=== PATIENT | male | born 1950 | race Hispanic/Latino ===

== ENCOUNTER 2017-09-21 12:25 | Inpatient (IN) | payer SELFPAY ==
[2017-09-21 15:20] LABS: Absolute Lymphocytes (CBC) 1.3 K/uL (0.7-4.9); Absolute Monocytes 1.7 K/uL (0.1-1.3); Absolute Neutrophil 15.9 K/uL (1.8-8.0); Basophils % 0.2 % (0-1.3); Eosinophils % 0.1 % (0-4.4); Hematocrit 36.3 % (39.6-49.0); Lymphocytes % 6.9 % (15.3-44.8); MCH 30.3 pg (27.0-35.0); MCV 89.7 fL (80-100); MPV 9.6 fL (7.6-11.3); Monocytes % 8.8 % (3.3-12.3); RBC Red Blood Cell Count 4.05 M/uL (4.33-5.43)
--- NOTE | 2017-09-21 15:20 | RAD REPORT ---
EXAM DESCRIPTION: RAD - Foot Left 3 View - 09/21/2017 3:03 pm CLINICAL HISTORY: Diabetic foot wound. COMPARISON: 04/25/2017 FINDINGS: Heavy vascular calcifications noted. Moderate calcaneal spur noted. Evidence of previous a mputation at the level of the first metatarsal mid aspect. Prevent large amount of soft tissue gas is seen along the lateral margin of the foot with a focal ulceration noted adjacent to the level of the fifth metatarsal head. Destruction of the distal fifth metatarsal and the base of the proximal phala nx of the fifth toe is noted compatible with osteomyelitis. IMPRESSION: Lateral osteomyelitis as detailed. Significant amount of lateral soft tissue gas is present compatible with gas-forming infection.
[2017-09-21] MEDS ORDERED: HYDROCODONE/APAP 7.5/325 MG TAB ONE (15:43)
[2017-09-21 16:00] LABS: Bicarbonate 28 mEq/L (21-31); Glucose Level 337 mg/dL (65-120); Potassium 4.2 mEq/L (3.6-5.0); Sodium Level 124 mEq/L (135-145)
--- NOTE | 2017-09-21 16:00 | EDPHYS ---
Physician Documentation [facility] Name: Amaury Matamoros Age: 66 yrs Sex: Male : 1950 Arrival Date: 09/21/2017 Time: 12:28 Bed 17 Private MD: ED Physician Jose Powell HPI: 09/21 14:20 This 66 yrs old Male presents to ER via Ambulatory with complaints of Infected kb Toe. 14:20 The patient presents with diabetic ulcer. The complaints affect the left foot. Context: kb resulted from started as a blister and turned into a diabetic wound. Onset: The symptoms/episode began/occurred last month. Modifying factors: The symptoms are alleviated by nothing, the symptoms are aggravated by nothing. Associated signs and symptoms: The patient has no apparent associated signs or symptoms. Severity of symptoms: At their worst the symptoms were mild, moderate, in the emergency department the symptoms are unchanged. The patient has experienced similar episodes in the past. The patient has been recently seen by a physician:. Pt states he has a diabetic ulcer that he sees wound care for. States it has been getting worse for the past few days. States he is also out of pain medication. . Historical: - Allergies: 12:43 PENICILLINS; aj - Home Meds: 12:43 unknown abx [Active]; Metformin Oral [Active]; aj - PMHx: 12:43 Cellulitis; Diabetes - NIDDM; aj - Immunization history:: Adult Immunizations up to date. - Social history:: Smoking status: Patient/guardian denies using tobacco. ROS: 14:20 Constitutional: Negative for fever, chills, and weight loss, Cardiovascular: Negative kb for chest pain, palpitations, and edema, Respiratory: Negative for shortness of breath, cough, wheezing, and pleuritic chest pain, Abdomen/GI: Negative for abdominal pain, nausea, vomiting, diarrhea, and constipation, Back: Negative for injury and pain, : Negative for injury, bleeding, discharge, and swelling, Neuro: Negative for headache, weakness, numbness, tingling, and seizure. 14:20 Skin: Positive for ulceration, of the lateral side of left foot. kb Exam: 14:20 Constitutional: This is a well developed, well nourished patient who is awake, alert, kb and in no acute distress. Head/Face: Normocephalic, atraumatic. Chest/axilla: Normal chest wall appearance and motion. Nontender with no deformity. No lesions are appreciated. Cardiovascular: Regular rate and rhythm with a normal S1 and S2. No gallops, murmurs, or rubs. Normal PMI, no JVD. No pulse deficits. Respiratory: Lungs have equal breath sounds bilaterally, clear to auscultation and percussion. No rales, rhonchi or wheezes noted. No increased work of breathing, no retractions or nasal flaring. Abdomen/GI: Soft, non-tender, with normal bowel sounds. No distension or tympany. No guarding or rebound. No evidence of tenderness throughout. Neuro: Awake and alert, GCS 15, oriented to person, place, time, and situation. Cranial nerves II-XII grossly intact. Motor strength 5/5 in all extremities. Sensory grossly intact. Cerebellar exam normal. Normal gait. 14:20 Skin: lesion(s), noted, and can be described as ulcerated, located on the lateral side kb of left foot, malodorous. Vital Signs: 12:43 BP 109 / 73; Pulse 104; Resp 17; Temp 98.7; Pulse Ox 96% on R/A; Weight 61.23 kg; aj Height 5 ft. 3 in. (160.02 cm); Pain 10/10; 14:20 BP 114 / 78; Pulse 94; Resp 18; Pulse Ox 99% on R/A; Pain 10/10; em 15:00 BP 128 / 78; Pulse 94; Resp 18; Pulse Ox 99% on R/A; Pain 10/10; em 16:18 BP 115 / 83; Pulse 89; Resp 16; Pulse Ox 100% on R/A; em 17:00 BP 122 / 74; Pulse 90; Resp 18; Temp 99.7(O); Pulse Ox 100% on R/A; em 12:43 Body Mass Index 23.91 (61.23 kg, 160.02 cm) aj MDM: 14:14 Patient medically screened. kb 14:20 Data reviewed: vital signs, nurses notes. Data interpreted: Pulse oximetry: on room air kb is 96 %. Interpretation: normal. 14:59 ED course: Last progress note from Dr Amor reviewed and discussed with Dr Powell. kb 15:58 Counseling: I had a detailed discussion with the patient and/or guardian regarding: the kb historical points, exam findings, and any diagnostic results supporting the discharge/admit diagnosis, lab results, radiology results, the need for further work-up and treatment in the hospital. Physician consultation: Alonzo Childress MD was contacted at 15:58, regarding admission, to the medical/surgical unit. patient's condition. 09/21 12:50 Order name: Glucose, Ancillary Testing; Complete Time: 14:12 EDMS 09/21 14:28 Order name: Wound Culture kb 09/21 14:28 Order name: Foot Left 3 View XRAY; Complete Time: 15:26 kb 09/21 14:28 Order name: CBC with Diff; Complete Time: 15:26 kb 09/21 14:28 Order name: Basic Metabolic Panel; Complete Time: 16:02 kb 09/21 14:28 Order name: Blood Culture Adult (2) 09/21 14:28 Order name: IV Start; Complete Time: 14:57 kb 09/21 15:28 Order name: Labs - recollect needed; Complete Time: 15:59 bd 09/21 16:31 Order name: CONS Pharmacy Consult EDMS Administered Medications: 15:30 Drug: [place] (7.5 mg-325 mg) 1 tabs Route: PO; em 16:05 Follow up: Response: No adverse reaction em 16:16 Drug: LevaQUIN 500 mg Volume: 100 ml; Route: IVPB; Infused Over: 60 mins; Site: right em antecubital; 17:15 Follow up: Response: No adverse reaction; IV Status: Completed infusion; IV Intake: em 100ml 16:16 Drug: vancoMYCIN 1 grams Route: IVPB; Infused Over: 2 hrs; Site: right antecubital; em 17:30 Follow up: Response: No adverse reaction; IV Status: Infusion continued upon admission em Point of Care Testing: Blood Glucose: 12:47 Blood Glucose: 298 mg/dL; aj Ranges: Critical Glucose Levels:Adult <50 mg/dl or >400 mg/dl <40 mg/dl or >180 mg/dl Disposition: 17:54 Co-signature as Attending Physician, Jose Powell MD. rn Disposition: 09/21/17 15:59 Hospitalization ordered by Alonzo Childress for Inpatient Admission. Preliminary diagnosis are Osteomyelitis, unspecified, Open wound of foot - diabetic ulcer left lateral foot, hyponatremia. - Bed requested for Telemetry/MedSurg (Inpatient). - Status is Inpatient Admission. em - Condition is Stable. - Problem is new. - Symptoms are unchanged. UTI on Admission? No Signatures: Dispatcher [employer] EDLorraine Alston, NEGATIVE CLEANER-C NEGATIVE CLEANER-Ckb Estela Alcantar Amanda, RN RN Melissa Abarca, NEGATIVE CLEANER-C NEGATIVE CLEANER-Csnw Milton Hall, OB/GYN NURSE OB/GYN NURSE Jose Benavides MD MD rn Fitzgerald, Diane, RN RN df Corrections: (The following items were deleted from the chart) 14:26 14:20 Skin: lesion(s), noted, and can be described as ulcerated, located on the lateral kb side of left foot, kb
--- NOTE | 2017-09-21 16:00 | ER ---
Nurse's Notes [facility] Name: Amaury Matamoros Age: 66 yrs Sex: Male : 1950 Arrival Date: 09/21/2017 Time: 12:28 Bed 17 Private MD: Diagnosis: Osteomyelitis, unspecified;Open wound of foot-diabetic ulcer left lateral foot;hyponatremia Presentation: 09/21 12:40 Presenting complaint: Patient states: Wound to left foot. Currently being seen by wound aj healing for same wound. Patient ran out of his hydrocodone this AM and is unable to get RX refilled until 10/04. Patient states, "I have had a lot of pain so I have been taking more pain pills". Transition of care: patient was not received from another setting of care. Onset of symptoms was May 2017. Care prior to arrival: None. 12:40 Method Of Arrival: Ambulatory aj 12:40 Acuity: ALEJANDRA 4 aj Triage Assessment: 12:43 General: Appears in no apparent distress. comfortable, Behavior is calm, cooperative, aj appropriate for age. Pain: Complains of pain in left foot Pain currently is 10 out of 10 on a pain scale. Neuro: Level of Consciousness is awake, alert, obeys commands, Oriented to person, place, time, situation. Respiratory: Airway is patent Respiratory effort is even, unlabored, Respiratory pattern is regular, symmetrical. Derm: Skin is intact, is healthy with good turgor, Skin is pink, warm \\T\\ dry. normal, Wound noted left foot. Historical: - Allergies: 12:43 PENICILLINS; aj - Home Meds: 12:43 unknown abx [Active]; Metformin Oral [Active]; aj - PMHx: 12:43 Cellulitis; Diabetes - NIDDM; aj - Immunization history:: Adult Immunizations up to date. - Social history:: Smoking status: Patient/guardian denies using tobacco. Screenin:57 Abuse screen: Denies threats or abuse. Denies injuries from another. Nutritional hb screening: No deficits noted. Tuberculosis screening: No symptoms or risk factors identified. Fall Risk None identified. Assessment: 14:30 General: Appears in no apparent distress. uncomfortable, Behavior is calm, cooperative. em Pain: Complains of pain in lateral side of left foot Pain currently is 10 out of 10 on a pain scale. Pain began 2 weeks ago. Neuro: Level of Consciousness is awake, alert, obeys commands, Oriented to person, place, time, situation. Cardiovascular: Patient's skin is warm and dry. Respiratory: Airway is patent Respiratory effort is even, unlabored, Respiratory pattern is regular, symmetrical. GI: Abdomen is flat. : No signs and/or symptoms were reported regarding the genitourinary system. EENT: No signs and/or symptoms were reported regarding the EENT system. Derm: Wound noted lateral side of left foot Wound is unstageable. Musculoskeletal: Range of motion: intact in all extremities. 14:31 Reassessment: I agree with previous assessment. hb 15:33 Reassessment: Patient appears in no apparent distress at this time. Patient and/or em family updated on plan of care and expected duration. Pain level reassessed. Patient is alert, oriented x 3, equal unlabored respirations, skin warm/dry/pink. 16:06 Reassessment: Dr. Childress at bedside discussing POC. em 16:23 Reassessment: Patient appears in no apparent distress at this time. Patient and/or em family updated on plan of care and expected duration. Pain level reassessed. Patient is alert, oriented x 3, equal unlabored respirations, skin warm/dry/pink. Patient states feeling better. 17:20 Reassessment: Patient appears in no apparent distress at this time. Patient and/or em family updated on plan of care and expected duration. Pain level reassessed. Patient is alert, oriented x 3, equal unlabored respirations, skin warm/dry/pink. Patient states feeling better. Vital Signs: 12:43 BP 109 / 73; Pulse 104; Resp 17; Temp 98.7; Pulse Ox 96% on R/A; Weight 61.23 kg; aj Height 5 ft. 3 in. (160.02 cm); Pain 10/10; 14:20 BP 114 / 78; Pulse 94; Resp 18; Pulse Ox 99% on R/A; Pain 10/10; em 15:00 BP 128 / 78; Pulse 94; Resp 18; Pulse Ox 99% on R/A; Pain 10/10; em 16:18 BP 115 / 83; Pulse 89; Resp 16; Pulse Ox 100% on R/A; em 17:00 BP 122 / 74; Pulse 90; Resp 18; Temp 99.7(O); Pulse Ox 100% on R/A; em 12:43 Body Mass Index 23.91 (61.23 kg, 160.02 cm) aj ED Course: 12:28 Patient arrived in ED. mr 12:42 Triage completed. aj 12:45 Arm band placed on left wrist. Patient placed in waiting room, Patient notified of wait aj time. 14:12 Lorraine Wilson FNP-C is PHCP. kb 14:12 Jose Powell MD is Attending Physician. kb 14:12 Melissa Mcgill FNP-C is PHCP. snw 14:42 Milton Hall LVN is Primary Nurse. em 14:57 Patient has correct armband on for positive identification. Bed in low position. Call hb light in reach. Side rails up X 1. 14:59 Foot Left 3 View XRAY In Process Unspecified. EDMS 15:00 X-ray completed. Portable x-ray completed in exam room. Patient tolerated procedure kc2 well. 15:00 No provider procedures requiring assistance completed. Initial lab(s) drawn, by me, em sent to lab. Inserted saline lock: 20 gauge in right antecubital area, using aseptic technique. Blood collected. 15:58 Alonzo Childress MD is Hospitalizing Provider. kb 17:30 Dressings: wet to dry on left foot, wrapped with kerlix. em 17:38 Patient admitted, IV remains in place. em Administered Medications: 15:30 Drug: [place] (7.5 mg-325 mg) 1 tabs Route: PO; em 16:05 Follow up: Response: No adverse reaction em 16:16 Drug: LevaQUIN 500 mg Volume: 100 ml; Route: IVPB; Infused Over: 60 mins; Site: right em antecubital; 17:15 Follow up: Response: No adverse reaction; IV Status: Completed infusion; IV Intake: em 100ml 16:16 Drug: vancoMYCIN 1 grams Route: IVPB; Infused Over: 2 hrs; Site: right antecubital; em 17:30 Follow up: Response: No adverse reaction; IV Status: Infusion continued upon admission em Point of Care Testing: Blood Glucose: 12:47 Blood Glucose: 298 mg/dL; aj Ranges: Intake: 17:15 IV: 100ml; Total: 100ml. em Outcome: 15:59 Decision to Hospitalize by Provider. kb 17:37 Admitted to Med/surg accompanied by tech, via wheelchair, room 423, Report called to em Yancy Lundberg RN 17:37 Condition: good 17:37 Instructed on the need for admit, Demonstrated understanding of instructions. 17:39 Patient left the ED. em Signatures: Dispatcher [employer] EDLorraine Alston, NEHAC ANETTE-Chanda Aragon RN RN Melissa Abarca, NEHAC BUSINESS SYSTEMS MANAGER-Monae Nogueira mr Milton Hall, DIELECTRIC MACHINE OPERATOR DIELECTRIC MACHINE OPERATOR em Micaela Zuñiga RN RN hb Carr, Kelsie kc2 Corrections: (The following items were deleted from the chart) 12:46 12:40 Presenting complaint: Patient states: Wound to left foot. Currently being seen by aj wound healing for same wound. aj 1246 12:40 Acuity: ALEJANDRA 3 aj aj 16:25 13:45 BP 114 / 78; Pulse 94bpm; Resp 18bpm; Pulse Ox 99% RA; Pain 04/24; em em
[2017-09-21 16:01] LABS: BUN Blood Urea Nitrogen 19 mg/dL (6-20); Glomerular Filtration Rate > 90 mL/min (=/>90)
[2017-09-21] MEDS ORDERED: Levofloxacin500mg IV 500 MG/100 ML BAG IV ONE (16:22)
[2017-09-21] MEDS ORDERED: VANCOMYCIN/NS 1 gm 1 GM/250 ML BAG ONE (16:22)
[2017-09-21] MEDS ORDERED: Pharmacy Consult 1 EA XX PRN (16:29)
[2017-09-21] MEDS ORDERED: D50W 25 GM/50 ML SYRINGE IV PRN (16:31)
[2017-09-21] MEDS ORDERED: GLUCAGON 1 MG/VIAL IM PRN (16:31)
--- NOTE | 2017-09-21 16:35 | P.HP ---
Certification for Inpatient With expected LOS: >2 Midnights Practitioner: I am a practitioner with admitting privileges, knowledge of patient current condition, hospital course, and medical plan of care. Services: Services provided to patient in accordance with Admission requirements found in Title 42 Section 412.3 of the Code of Federal Regulations Patient History Date of Service: 09/21/17 Reason for admission: Osteomyelitis History of Present Illness: Patient is 66 years of age he has been having problems with his left forearm for about a month became progressively worse is now showing area of necrosis is pain became worse patient had an amputation of the left big toe about 6 months he was admitted with a diagnosis of osteomyelitis and for IV antibiotic patient failed outpatient therapy with levofloxacin and Bactrim Allergies Penicillins Allergy (Intermediate, Verified 09/13/16 12:55) Rash Home Medications: Acetaminophen with Codeine [Tylenol with Codeine #4 Tablet] 1 each PO Q6H PRN Metformin HCl [Metformin HCl ER] 1,000 mg PO DAILY 04/25/17 Collagenase [Santyl Ointment*] 1 appl TOP DAILY #1 tube 05/01/17 Levofloxacin [Levaquin] 500 mg PO DAILY #14 tab 05/01/17 Smz./Tmp. [Bactrim Ds 800 MG/160 MG] 1 tab PO BID #28 tab 05/01/17 - Past Medical/Surgical History Diabetic: Yes -: Diabetes mellitus type 2 -: HX of Tobacco abuse -: Hx of Alcohol use -: Diabetic neuropathy -: Left Knee Surgery Psychosocial/ Personal History: He is , has 4 children. He is disabled. - Family History Father -: Heart disease, Hypertension, Diabetes, Cancer Mother -: Diabetes, Stroke - Social History Alcohol use: Yes CD- Drugs: No Caffeine use: No Review of Systems 10-point ROS is otherwise unremarkable General: Weakness Musculoskeletal: Foot Pain Physical Examination - Physical Exam General: Alert, Oriented x3 HEENT: Atraumatic Neck: Supple Respiratory: Clear to auscultation bilaterally Cardiovascular: No edema, Regular rate/rhythm, Normal S1 S2, Abnormal pulses ( Difficult to feel pulses in the left foot) Gastrointestinal: Normal bowel sounds, Soft and benign Musculoskeletal: Other (Left lateral foot shows areas of necrosis an ulceration with edema) Integumentary: Skin breakdown, Skin lesion (Left foot) - Studies Laboratory Data (last 24 hrs) 09/21/17 15:36: Sodium 124 L, Potassium 4.2, BUN 19, Creatinine 0.62, Glucose 337 H 09/21/17 14:40: WBC 18.9 H, Hgb 12.3 L, Hct 36.3 L, Plt Count 249 Assessment and Plan - Problems (Diagnosis) (1) Osteomyelitis of foot, left, acute Onset Date: 04/26/17 Current Visit: No Status: Resolved Plan: Patient is 66 years of age admitted with pain swelling pasta myelitis of the left foot he appears to have a gangrenous area in the left foot Radiology report FINDINGS: Heavy vascular calcifications noted. Moderate calcaneal spur noted. Evidence of previous amputation at the level of the first metatarsal mid aspect. Prevent large amount of soft tissue gas is seen along the lateral margin of the foot with a focal ulceration noted adjacent to the level of the fifth metatarsal head. Destruction of the distal fifth metatarsal and the base of the proximal phalanx of the fifth toe is noted compatible with osteomyelitis. IMPRESSION: Lateral osteomyelitis as detailed. Significant amount of lateral soft tissue gas is present compatible with gas- forming infection. Plan to start patient on IV antibiotics with vancomycin and cefepime high dose patient failed outpatient therapy with Levaquin and Bactrim Patient is hypernatremic white count elevated cultures ordered - Advance Directives Does patient have a Living Will: No Does patient have a Durable POA for Healthcare: No
[2017-09-21] MEDS ORDERED: VANCOMYCIN 500 MG in NA CHLORIDE 0.9% 100 ML IVPB SCH (17:00)
[2017-09-21 17:52] VITALS: BMI 22.8
[2017-09-21] MEDS: METFORMIN HCL 500 MG TAB PO SCH (18:38)
[2017-09-21] MEDS: CEFEPIME/SWI 2gm 2 GM/20 ML SYR IV SCH (18:40)
[2017-09-21] MEDS ORDERED: INFLUENZA VACCINE (for 5y+) 0.5 ML DOSE IMVAC ONE (19:00)
[2017-09-21] MEDS: INSULIN -REGULAR HUMAN 50 UNIT/0.5 ML ML SQ SCH (20:36)
[2017-09-21] MEDS ORDERED: CEFEPIME 2 GM VIAL IV SCH (21:00)
--- NOTE | 2017-09-21 23:24 | P.CNS ---
Date of Consult: 09/21/17 PC: I was asked to reassess this patient in regards to a open wound on the lateral aspect of his left foot.. HPC: Patient has had a wound in that area before. Apparently was at the wound center. It became healed up. Has been wearing a pair of sandals. It is obvious that the sandals had rubbed down through the skin into the soft tissue and is now infected in that portion of his foot PMH: Diabetes type 2 PSHx: Apparently was being treated as an outpatient for this wound SOC: Allergic to Brissa SYS REVIEW: States he is otherwise healthy O/E within normal limit HEENT: Not done Chest: Chest movement equal bilateral ABD: LOCO: Has a large open wound on the lateral aspect of his left foot. There is gangrenous appearing tissue in this area. So that there is no crepitus or any discharge at the moment. DATA: Elevated white cell count, as MRI shows osteomyelitis IMPRESSION: Open wound with osteomyelitis and gangrene PLAN: I have made the patient NPO, will take him to the operating room in the morning for surgical debridement of this foot. The risks of this procedure have been discussed. The possibility of, infection, need for further surgeries and procedures was outlined. He understands and wants to proceed. Complications of ongoing surgical procedures, failure to heal, and need for further amputations were explained. He understands.
[2017-09-22 03:04] LABS: Absolute Lymphocytes (CBC) 1.7 K/uL (0.7-4.9); Absolute Monocytes 1.4 K/uL (0.1-1.3); Absolute Neutrophil 13.4 K/uL (1.8-8.0); Basophils % 0.2 % (0-1.3); Eosinophils % 0.2 % (0-4.4); Hematocrit 32.7 % (39.6-49.0); MCH 29.8 pg (27.0-35.0); MCV 89.1 fL (80-100); MPV 8.4 fL (7.6-11.3); Monocytes % 8.2 % (3.3-12.3); RBC Red Blood Cell Count 3.67 M/uL (4.33-5.43)
[2017-09-22 03:16] LABS: BUN Blood Urea Nitrogen 17 mg/dL (6-20); Bicarbonate 29 mEq/L (21-31); Glomerular Filtration Rate > 90 mL/min (=/>90); Glucose Level 136 mg/dL (65-120); Potassium 3.9 mEq/L (3.6-5.0); Sodium Level 128 mEq/L (135-145)
[2017-09-22] MEDS: VANCOMYCIN/NS 1 gm 1 GM/250 ML BAG IV SCH ×2 (05:04→18:16)
[2017-09-22] MEDS: HYDROCODONE/APAP 10/325 TAB PO PRN ×4 (05:04→22:44)
[2017-09-22] MEDS: CEFEPIME/SWI 2gm 2 GM/20 ML SYR IV SCH ×2 (05:05→17:15)
[2017-09-22] MEDS ORDERED: Levofloxacin 750mg IV 750 MG/150 ML BAG IV SCH (06:00)
[2017-09-22] MEDS: INSULIN -REGULAR HUMAN 50 UNIT/0.5 ML ML SQ SCH ×4 (07:30→20:47)
[2017-09-22] MEDS: METFORMIN HCL 500 MG TAB PO SCH ×2 (08:00→16:57)
--- NOTE | 2017-09-22 12:32 | P.PN ---
Date of Service: 09/22/17 S: Patient is no specific complaints. States he is hungry. O.: Wound is relatively unchanged since yesterday. No increase in erythema. A: This patient has osteomyelitis of the 5th metatarsal head and distal phalanx. I had discussed last night with him amputation of this toe. Over the course of the last night, the patient has changed his mind. He understands the wrist but he wants to try IV antibiotics for 6 weeks course. I have advised him that this is not most likely going to work. He understands and says he really wants to try it. P: Will continue with wound care to this left foot. I will have the patient seen by for recurrent regarding possible IV therapy. I still feel the patient will require at some point amputation but at the current time he is refusing.
--- NOTE | 2017-09-22 14:31 | PN ---
Subjective: Currently, the patient is doing well. He is lying in bed. He is comfortable. Pain was well controlled. He is n.p.o. for his surgery by Dr. Dumont today. Objective: Vital Signs: Blood pressure is 109/66, respiratory rate 15, pulse 86, temperature 98.4. He is saturating 95% on room air. He is fully alert and oriented x3. Does not look in any distress . HEENT: Atraumatic, normocephalic. PERRLA. Oral mucosa is moist. Neck: Supple. No JVD. No carotid bruits. Chest: Clear to auscultation. Good air entry. Heart: Regular rate and rhythm, S1, S2 normal. No gallop or murmur. Abdomen: Soft, nontender. No masses. No hepatosplenomegaly. Positive bowel sounds. Extremities: No clubbing, cyanosis, or edema. Left lateral foot with area of necrosis and ulceratio n with swelling. Laboratory Data: Labs today showed CBC with white blood cells 16.5, hemoglobin 10.9, platelet are 21 0. Chemistry within normal except for sodium 128, up from 124, glucose 133. Assessment And Plan: 1.Osteomyelitis of the left foot noted on x-ray. The patient already failed outpatient therapy with Levaquin and Bactrim. Continue IV antibiotic with vancomycin and cefepime. The patient is going to OR this morning. White blood cells trending down from 18.9 to 16.5. Cultures so far blo od. Wound culture showed mixed simi and gram-negative rods. 2.Hyponatremia, improving. We will add sodium chloride tablets. 3.Diabetes. We will check his hemoglobin A1c. He is currently on metformin and insulin sliding sca le. 4.We will continue deep venous thrombosis prophylaxis with Lovenox after surgery. TRAE/MELY Voice ID: [id number] Report ID: [id number]
[2017-09-22] MEDS: COLLAGENASE 30 GM OINTMENT TOP SCH ×2 (14:52→20:48)
--- NOTE | 2017-09-22 15:40 | RAD REPORT ---
EXAM DESCRIPTION: RAD - Ribs Left - 09/22/2017 3:20 pm CLINICAL HISTORY: Left-sided rib pain after fall, possible rib fracture COMPARISON: None. FINDINGS: No displaced or nondisplaced rib fracture identifiable. No aggressive rib lesion. No under lying pneumothorax, effusion, infiltrate or pulmonary contusion. IMPRESSION: No rib fracture identified. No pulmonary contusion, pneumothorax, pleural fluid collection or other traumatic finding in the ches t. If there is continued concern for rib fracture and it would alter medical management, CT chest imagin g could be performed.
[2017-09-22] MEDS: SODIUM CHLORIDE 1 GM TAB PO SCH (16:57)
[2017-09-23] MEDS: VANCOMYCIN/NS 1 gm 1 GM/250 ML BAG IV SCH (04:34)
[2017-09-23] MEDS: CEFEPIME/SWI 2gm 2 GM/20 ML SYR IV SCH (05:30)
[2017-09-23 06:06] LABS: Absolute Lymphocytes (CBC) 1.3 K/uL (0.7-4.9); Absolute Monocytes 1.4 K/uL (0.1-1.3); Absolute Neutrophil 15.6 K/uL (1.8-8.0); Basophils % 0.2 % (0-1.3); Eosinophils % 0.4 % (0-4.4); Lymphocytes % 7.2 % (15.3-44.8); MCV 89.7 fL (80-100); MPV 8.2 fL (7.6-11.3); Monocytes % 7.5 % (3.3-12.3); RBC Red Blood Cell Count 3.79 M/uL (4.33-5.43)
[2017-09-23 06:31] LABS: ALT/SGPT 40 IU/L (10-60); AST/SGOT 67 IU/L (10-42); Albumin 2.1 g/dL (3.2-5.5); Alkaline Phosphatase 130 IU/L (42-121); BUN Blood Urea Nitrogen 17 mg/dL (6-20); Bicarbonate 27 mEq/L (21-31); Bilirubin Total 1.8 mg/dL (0.3-1.2); Glomerular Filtration Rate > 90 mL/min (=/>90); Glucose Level 157 mg/dL (65-120); Potassium 3.9 mEq/L (3.6-5.0); Protein, Total 6.8 g/dL (6.0-8.3); Sodium Level 130 mEq/L (135-145)
[2017-09-23] MEDS: INSULIN -REGULAR HUMAN 50 UNIT/0.5 ML ML SQ SCH ×4 (07:30→21:00)
[2017-09-23] MEDS: METFORMIN HCL 500 MG TAB PO SCH ×2 (08:08→17:00)
[2017-09-23] MEDS: SODIUM CHLORIDE 1 GM TAB PO SCH ×2 (08:08→17:00)
[2017-09-23] MEDS: COLLAGENASE 30 GM OINTMENT TOP SCH ×2 (08:08→21:14)
[2017-09-23 08:20] LABS: Blood Morphology Comment NOT SEEN (NOT SEEN); Platelet Estimate ADEQ
[2017-09-23] MEDS ORDERED: PIPER/TAZO/NS 3.375gm 3.375 GM/100 ML BAG IVPB SCH (12:00)
--- NOTE | 2017-09-23 15:38 | PN ---
Subjective: Currently, the patient is lying in bed. He looks comfortable. He is still resistant to have any surgery. No fever or chills overnight. His wound grew EBSL E coli. Objective: Vital Signs: Blood pressure is 136/74, respiratory rate 20, pulse 96, temperature is 98. 6. He is saturating 95% on room air. General: He is fully alert and oriented x3. Does not look in any distress. HEENT: Atraumatic and normocephalic. PERRLA. Oral mucosa is moist. Neck: Supple. No JVP. No carotid bruits. Chest: Clear to auscultation. Good air entry. Heart: Regular rate and rhythm. S1 and S2 normal. No gallop or murmur. Abdomen: Soft, nontender. No masses. No hepatosplenomegaly. Positive bowel sounds. Extremities: No clubbing or cyanosis or edema. Left lateral foot with area of necrosis and ulcerati on and swelling. Laboratory Data: Today, white blood cells up to 18.4, hemoglobin 11.4, and platelets 219. Chemistry within normal limits, except for sodium 130, up from 128, chloride 96, glucose 156, total bilirubin of 1.8. Assessment And Plan: 1.Osteomyelitis of the left foot on x-ray. The patient failed outpatient therapy with Levaquin and Bactrim. Currently, he is on cefepime and vancomycin, but the wound culture grew extended spectrum b eta lactamase, so I will switch his antibiotic to Zosyn and discontinue cefepime, which is resistant. White blood cells are going slightly up maybe because extended spectrum beta lactamase was resistan t to cefepime. The patient is still refusing amputation that was offered by Dr. Dumont. If he goes home, he will probably need 6 weeks of antibiotic which apparently he is willing to take, but I am n ot sure again what his chances of response and maybe it will be a good idea to consult Dr. Wells, [place] , tomorrow to give us opinion. 2.Hyponatremia. Continues to improve. The patient is started on sodium tablets yesterday. 3.Diabetes. Hemoglobin A1c is pending. Continue metformin and insulin sliding scale. 4.I will start deep venous thrombosis prophylaxis today with Lovenox. The patient is refusing surge ry. MT/MELY Voice ID: [id number] Report ID: [id number]
--- NOTE | 2017-09-23 16:13 | P.PN ---
Date of Service: 09/23/17 S: Patient is no specific complaints today. However he has had an opportunity to ponder the condition that is in right now. He says that he would prefer to have the amputation at this time. On further review he is fearful that this will does recur at after 6 weeks to wean back restarted from. I feel that would be the most likely the case due to the amount of tissue loss over this bone. O. coal Wound unchanged still has slight noted A: Still needs amputation of the 5th metatarsal and failing P: Will make him NPO at midnight.
[2017-09-23] MEDS: ENOXAPARIN 40 MG/0.4 ML SQ SCH (16:59)
[2017-09-23] MEDS: PIPER/TAZO/NS 3.375gm 3.375 GM/100 ML BAG IVPB SCH (17:00)
[2017-09-23] MEDS ORDERED: VANCOMYCIN/NS 1 gm 1 GM/250 ML BAG IV SCH (17:00)
[2017-09-23] MEDS: HYDROCODONE/APAP 10/325 TAB PO PRN (21:20)
[2017-09-24] MEDS: PIPER/TAZO/NS 3.375gm 3.375 GM/100 ML BAG IVPB SCH ×3 (00:19→16:20)
[2017-09-24 04:37] LABS: Absolute Lymphocytes (CBC) 2.1 K/uL (0.7-4.9); Absolute Monocytes 1.7 K/uL (0.1-1.3); Basophils % 0.2 % (0-1.3); Eosinophils % 0.4 % (0-4.4); Hematocrit 32.7 % (39.6-49.0); Lymphocytes % 9.9 % (15.3-44.8); MCV 89.5 fL (80-100); MPV 8.2 fL (7.6-11.3); Monocytes % 8.1 % (3.3-12.3); RBC Red Blood Cell Count 3.65 M/uL (4.33-5.43)
[2017-09-24 04:51] LABS: Bicarbonate 28 mEq/L (21-31); Potassium 3.6 mEq/L (3.6-5.0); Sodium Level 129 mEq/L (135-145)
[2017-09-24 04:58] LABS: BUN Blood Urea Nitrogen 13 mg/dL (6-20); Glomerular Filtration Rate > 90 mL/min (=/>90); Glucose Level 168 mg/dL (65-120); Magnesium 1.6 mg/dL (1.8-2.5)
[2017-09-24 05:27] LABS: Blood Morphology Comment NOT SEEN (NOT SEEN); Platelet Estimate ADEQ
[2017-09-24] MEDS ORDERED: MAGNESIUM SULFATE 1 gm IVPB 1 GM/100 ML BAG IV ONE (06:10)
[2017-09-24] MEDS: HYDROCODONE/APAP 10/325 TAB PO PRN ×2 (06:28→21:02)
[2017-09-24] MEDS: INSULIN -REGULAR HUMAN 50 UNIT/0.5 ML ML SQ SCH ×4 (07:30→21:00)
[2017-09-24] MEDS: METFORMIN HCL 500 MG TAB PO SCH ×2 (08:00→16:21)
[2017-09-24] MEDS: SODIUM CHLORIDE 1 GM TAB PO SCH ×2 (08:15→16:32)
[2017-09-24] MEDS: COLLAGENASE 30 GM OINTMENT TOP SCH ×2 (09:00→21:00)
[2017-09-24] MEDS ORDERED: POTASSIUM 25 MEQ EFFERV TAB PO ONE (12:00)
[2017-09-24] MEDS ORDERED: NA CHLORIDE 0.9% 1,000 ML ONE (12:34)
--- NOTE | 2017-09-24 13:13 | P.PN ---
Date of Service: 09/24/17 S: Patient has no specific complaints today. Asking good questions about ongoing care after his amputation. Motivated to get this healed and prevent further recurrence since with his diabetic feet. O: No change in his toes status A: Gangrene and osteomyelitis of 5th metatarsal and toe left P: Once again, I discussed with the patient the need for the amputation. The probable setbacks as far as wound healing goes. He understands and wants us to proceed.
[2017-09-24] MEDS ORDERED: LIDOCAINE 2% MPF 5 ML VIAL ONE (13:19)
[2017-09-24] MEDS ORDERED: PROPOFOL 200 MG/20 ML VIAL IV ONE (13:19)
[2017-09-24] MEDS ORDERED: MIDAZOLAM HCL 2 MG/2 ML INJ ONE (13:19)
[2017-09-24] MEDS ORDERED: BUPIVACAINE 0.5% PF 10 ML VIAL ONE (13:26)
[2017-09-24] MEDS ORDERED: KETOROLAC 30 MG/ML INJ ONE (14:29)
[2017-09-24] MEDS: MEPERIDINE HCL 50 MG/ML AMP ONE ×2 (14:45→14:51)
[2017-09-24] MEDS: ENOXAPARIN 40 MG/0.4 ML SQ SCH (16:32)
[2017-09-24] MEDS ORDERED: Meropenem 1000 MG/VIAL IV SCH (17:00)
--- NOTE | 2017-09-24 17:01 | P.PN ---
Subjective Date of Service: 09/24/17 Chief Complaint: Osteomyelitis Subjective: Other (Patient doing well this time. Patient agrees to amputation if needed.) Physical Examination - Vital Signs Temperature: 97 F Blood Pressure: 109/62 Pulse: 82 Respirations: 17 Pulse Ox (%): 96 - Physical Exam General: Alert, In no apparent distress, Oriented x3, Cooperative HEENT: Atraumatic Neck: Supple Respiratory: Clear to auscultation bilaterally, Normal air movement Cardiovascular: Normal pulses, Regular rate/rhythm Gastrointestinal: Normal bowel sounds, Soft and benign, Non-distended Musculoskeletal: Other (Left lower extremity bandaged.) Neurological: Normal speech, Normal strength at 5/5 x4 extr, Normal tone - Studies Microbiology Data (last 24 hrs): 09/21/17 14:45 Wound - Left Foot Gram Stain - Final Medications List Reviewed: Yes Assessment & Plan - Problems (Diagnosis) (1) Anemia Current Visit: Yes Status: Acute Plan: Will check iron and B12 studies. Will monitor closely. Patient to get amputation today. Qualifiers: Anemia type: unspecified type Qualified Code(s): D64.9 - Anemia, unspecified (2) Osteomyelitis of foot, left, acute Onset Date: 09/24/17 Current Visit: Yes Status: Acute Plan: Patient with osteomyelitis. Patient to have amputation. Wound culture positive for E. coli -ESBL. Will change antibiotic therapy from Zosyn to meropenem (3) Diabetes mellitus Onset Date: 08/08/16 Current Visit: No Status: Chronic Plan: Will continue with Accu-Cheks. Will monitor and adjust appropriately. 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 Discharge Plan: Other (Will need to discuss skilled placement) Time Spent Managing Pts Care (In Minutes): 55
[2017-09-24 18:18] LABS: Ferritin 385.8 ng/ml (23.9-336.2)
[2017-09-24] MEDS: Meropenem 1,000 MG in NA CHLORIDE 0.9% 100 ML IV SCH (19:34)
[2017-09-25] MEDS: Meropenem 1,000 MG in NA CHLORIDE 0.9% 100 ML IV SCH ×3 (00:38→16:56)
[2017-09-25] MEDS: HYDROCODONE/APAP 10/325 TAB PO PRN ×3 (05:04→20:57)
[2017-09-25 06:09] LABS: Absolute Lymphocytes (CBC) 1.9 K/uL (0.7-4.9); Absolute Monocytes 1.3 K/uL (0.1-1.3); Absolute Neutrophil 12.9 K/uL (1.8-8.0); Basophils % 0.4 % (0-1.3); Eosinophils % 0.8 % (0-4.4); Hematocrit 32.3 % (39.6-49.0); Lymphocytes % 11.9 % (15.3-44.8); MCH 29.6 pg (27.0-35.0); MCV 89.9 fL (80-100); MPV 8.4 fL (7.6-11.3); Monocytes % 7.9 % (3.3-12.3); RBC Red Blood Cell Count 3.59 M/uL (4.33-5.43)
[2017-09-25 06:27] LABS: Bicarbonate 28 mEq/L (21-31); Sodium Level 130 mEq/L (135-145)
[2017-09-25 06:30] LABS: BUN Blood Urea Nitrogen 17 mg/dL (6-20); Glomerular Filtration Rate > 90 mL/min (=/>90); Glucose Level 163 mg/dL (65-120); Magnesium 1.8 mg/dL (1.8-2.5)
[2017-09-25] MEDS ORDERED: MAGNESIUM SULFATE 1 gm IVPB 1 GM/100 ML BAG IV ONE (06:32)
[2017-09-25] MEDS: INSULIN -REGULAR HUMAN 50 UNIT/0.5 ML ML SQ SCH ×4 (07:30→20:55)
[2017-09-25] MEDS: COLLAGENASE 30 GM OINTMENT TOP SCH ×2 (07:59→20:56)
[2017-09-25] MEDS: SODIUM CHLORIDE 1 GM TAB PO SCH ×3 (08:00→17:00)
[2017-09-25] MEDS: METFORMIN HCL 500 MG TAB PO SCH ×2 (08:04→16:52)
--- NOTE | 2017-09-25 09:55 | P.PN ---
Subjective Date of Service: 09/25/17 Primary Care Provider: Unknown Chief Complaint: Osteomyelitis Subjective: Other (Patient doing fair today. No significant complaints noted.) Physical Examination - Vital Signs Temperature: 97.5 F Blood Pressure: 110/53 Pulse: 78 Respirations: 18 Pulse Ox (%): 97 - Physical Exam General: Alert, In no apparent distress, Oriented x3, Cooperative HEENT: Atraumatic, Mucous membr. moist/pink Neck: Supple Respiratory: Clear to auscultation bilaterally, Normal air movement Cardiovascular: Normal pulses, Regular rate/rhythm Gastrointestinal: Normal bowel sounds, Soft and benign, Non-distended Musculoskeletal: Other (Bandage to the left lower extremity) - Studies Microbiology Data (last 24 hrs): 09/21/17 14:45 Wound - Left Foot Gram Stain - Final 09/21/17 14:45 Wound - Left Foot Culture & Sensitivity - Final Escherichia Coli Enterobacter Aerogenes Medications List Reviewed: Yes Assessment & Plan - Problems (Diagnosis) (1) Anemia Current Visit: Yes Status: Acute Plan: Patient with iron deficiency anemia. Will start iron supplementation. Will monitor closely. Qualifiers: Anemia type: iron deficiency Iron deficiency anemia type: unspecified iron deficiency Qualified Code(s): D50.9 - Iron deficiency anemia, unspecified (2) Osteomyelitis of foot, left, acute Onset Date: 09/24/17 Current Visit: Yes Status: Acute Plan: Patient with osteomyelitis and gangrene of the left foot. Case discussed at length with surgery. Patient will need below-knee amputation. This was discussed in detail with the patient. Options were addressed but surgery recommends below-knee amputation. Patient is agreeable to this. Patient ass media discuss with family. I was able to get in contact with the sister. Surgery will discuss the case with his sister as well. Wound culture positive for E. coli -ESBL. Patient now on meropenem. Surgery planned within the next 1 -2 days. (3) Diabetes mellitus Onset Date: 08/08/16 Current Visit: No Status: Chronic Plan: Will continue with Accu-Cheks. Will monitor and adjust appropriately. Will add basal insulin. 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 (5) Gangrene Current Visit: Yes Status: Acute Plan: Continue with above plan of care. Patient will need below-knee amputation (6) Hyponatremia Current Visit: Yes Status: Acute Plan: Will encourage oral intake. Discharge Plan: Home Plan to discharge in: Greater than 2 days Time Spent Managing Pts Care (In Minutes): 55
[2017-09-25] MEDS: FERROUS SULFATE 325 MG TAB PO SCH (16:53)
[2017-09-25] MEDS: ENOXAPARIN 40 MG/0.4 ML SQ SCH (17:47)
--- NOTE | 2017-09-25 20:26 | P.PN ---
Date of Service: 09/25/17 S: Patient awake alert today. Once again we discussed amputation, rehab, motivation ongoing on having get ourselves back to a relatively normal life. We will explore the possibilities of rehab. He also assured me that his home life is okay and he is in a safe environment. (I had spoken to his sister earlier today) 0: Vital signs are stable patient alert, on point, no evidence of any sepsis A : Patient has gangrene of his left foot, and requires of below-knee amputation P: I will take him to the operating room tomorrow morning for a below-knee amputation. The risks of this procedure have been discussed. The possibility of bleeding, infection, nonhealing, need for further surgeries and procedures including a higher degree of amputation was explained. He understands and wants us to proceed.
[2017-09-25] MEDS: INSULIN DETEMIR 100 UNIT/1 ML INSULIN SQ SCH (20:55)
[2017-09-26] MEDS: Meropenem 1,000 MG in NA CHLORIDE 0.9% 100 ML IV SCH ×3 (01:24→17:52)
[2017-09-26] MEDS: HYDROCODONE/APAP 10/325 TAB PO PRN ×3 (04:03→20:55)
[2017-09-26] MEDS ORDERED: VANCOMYCIN/NS 1 gm 1 GM/250 ML BAG IV SCH (05:00)
[2017-09-26 05:37] LABS: Absolute Lymphocytes (CBC) 3.1 K/uL (0.7-4.9); Absolute Monocytes 1.4 K/uL (0.1-1.3); Absolute Neutrophil 11.4 K/uL (1.8-8.0); Basophils % 0.7 % (0-1.3); Eosinophils % 1.5 % (0-4.4); Hematocrit 31.7 % (39.6-49.0); MCH 29.2 pg (27.0-35.0); MCV 89.6 fL (80-100); MPV 8.5 fL (7.6-11.3); Monocytes % 8.4 % (3.3-12.3); RBC Red Blood Cell Count 3.54 M/uL (4.33-5.43)
[2017-09-26 05:56] LABS: Bicarbonate 28 mEq/L (21-31); Potassium 3.7 mEq/L (3.6-5.0); Sodium Level 131 mEq/L (135-145)
[2017-09-26 06:05] LABS: BUN Blood Urea Nitrogen 12 mg/dL (6-20); Glomerular Filtration Rate > 90 mL/min (=/>90); Glucose Level 85 mg/dL (65-120); Magnesium 1.6 mg/dL (1.8-2.5)
[2017-09-26] MEDS: PANTOPRAZOLE 40MG TABLET PO SCH (06:30)
[2017-09-26] MEDS ORDERED: MAGNESIUM SULFATE 1 gm IVPB 1 GM/100 ML BAG IV ONE (06:48)
[2017-09-26] MEDS: INSULIN -REGULAR HUMAN 50 UNIT/0.5 ML ML SQ SCH ×4 (07:30→20:57)
[2017-09-26] MEDS: METFORMIN HCL 500 MG TAB PO SCH ×2 (08:00→17:51)
[2017-09-26] MEDS: SODIUM CHLORIDE 1 GM TAB PO SCH ×2 (08:00→16:24)
--- NOTE | 2017-09-26 08:15 | RAD REPORT ---
EXAM DESCRIPTION: RAD - Chest Single View - 09/26/2017 12:44 am CLINICAL HISTORY: Device placement PICC line placement COMPARISON: September 22 FINDINGS: A PICC line has been inserted with its tip 1 centimeter into the right atrium. Mild interstitial lung opacities are unchanged and probably chronic. The heart is normal size.
[2017-09-26] MEDS: FERROUS SULFATE 325 MG TAB PO SCH ×2 (08:17→18:22)
[2017-09-26] MEDS ORDERED: PROPOFOL 200 MG/20 ML VIAL IV ONE (09:46)
[2017-09-26] MEDS ORDERED: MIDAZOLAM HCL 2 MG/2 ML INJ ONE (09:47)
[2017-09-26] MEDS ORDERED: LIDOCAINE 2% MPF 5 ML VIAL ONE (09:47)
[2017-09-26] MEDS ORDERED: NA CHLORIDE 0.9% 1,000 ML ONE (09:49)
[2017-09-26] MEDS ORDERED: D50W 25 GM/50 ML SYRINGE IV ONE (09:55)
[2017-09-26] MEDS ORDERED: FENTANYL CITR 100 MCG/2 ML ONE (10:30)
--- NOTE | 2017-09-26 10:44 | P.PN ---
Subjective Date of Service: 09/26/17 Primary Care Provider: Unknown Chief Complaint: Osteomyelitis Subjective: Doing well Physical Examination - Vital Signs Temperature: 98.0 F Blood Pressure: 114/63 Pulse: 85 Respirations: 16 Pulse Ox (%): 98 - Physical Exam General: Alert, In no apparent distress, Oriented x3, Cooperative HEENT: Atraumatic, Mucous membr. moist/pink Neck: Supple Respiratory: Clear to auscultation bilaterally, Normal air movement Cardiovascular: Normal pulses, Regular rate/rhythm Gastrointestinal: Normal bowel sounds, Soft and benign, Non-distended, No tenderness, No masses, No rebound, No guarding Musculoskeletal: No erythema, No tenderness, No warmth Integumentary: Other (Left lower extremity bandaged) Neurological: Normal speech, Normal strength at 5/5 x4 extr, Normal tone Lymphatics: No axilla or inguinal lymphadenopathy - Studies Microbiology Data (last 24 hrs): 09/21/17 14:45 Wound - Left Foot Gram Stain - Final 09/21/17 14:45 Wound - Left Foot Culture & Sensitivity - Final Escherichia Coli Enterobacter Aerogenes Medications List Reviewed: Yes Assessment & Plan - Problems (Diagnosis) (1) Anemia Current Visit: Yes Status: Acute Plan: Patient with iron deficiency anemia. Continue iron supplementation. Will monitor closely. Qualifiers: Anemia type: iron deficiency Iron deficiency anemia type: unspecified iron deficiency Qualified Code(s): D50.9 - Iron deficiency anemia, unspecified (2) Osteomyelitis of foot, left, acute Onset Date: 09/24/17 Current Visit: Yes Status: Acute Plan: Patient with osteomyelitis and gangrene of the left foot. Case discussed at length with surgery. Patient to have below-knee amputation today. Wound culture positive for E. coli -ESBL. Patient now on meropenem. sales representative facility services consulted. Patient would benefit with Medicaid pending skilled placement. (3) Diabetes mellitus Onset Date: 08/08/16 Current Visit: No Status: Chronic Plan: Will continue with Accu-Cheks. Will monitor and adjust appropriately. 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 (5) Gangrene Current Visit: Yes Status: Acute Plan: Continue with above plan of care. Below-knee amputation today. (6) Hyponatremia Current Visit: Yes Status: Acute Plan: Will encourage oral intake. Discharge Plan: Other (Skilled placement) Plan to discharge in: Greater than 2 days Time Spent Managing Pts Care (In Minutes): 55
--- NOTE | 2017-09-26 10:58 | P.OP ---
Preoperative diagnosis: Gangrene of the left foot Postoperative diagnosis: The same Primary procedure: Left below-knee amputation Anesthesia: General Estimated blood loss: Less than 50 cc Specimen: 1 lower lid Operative Technique: The patient brought the operating room and placed supine on the table. After the induction of Atarax quit general anesthesia, the area of the left leg was prepped with a Betadine solution and draped in usual aseptic manner. Attention was turned towards the knee. Has breath below this a skin marking was made. A skin incision was made. This brought down through the skin and subcutaneous tissue. The anterior surface of the tibia was encounter. It was clear of his muscle attachments. This was done circumferentially. The gait was sought was now placed underneath the a tibia we were able to divide the bone taking care about all the anterior surface at approximately 40. The neurovascular bundle was identified. Vascular control was used obtained using hemostats. If the fibula was found and I dissected clear we could place again was all around it. At [place] actually able to use a bone cutter to divide the fibula. Having made sure that it was approximately an inch above the tibia the area was inspected for adequate hemostasis. This posterior flap was now taken down by using are full a knife to take off the posterior portions of the attachments of the lower leg. The muscle was now thin in such a manner as to allow us to bring anteriorly has suture the periosteum to the thickened fascia. This essentially cover the ends of the tibia. The neurovascular bundle was inspected to ensure adequate hemostasis and there was divided allowed to retract good will stay since having been ensured the fascia was now approximated above the over the wound. Ivsi were applied to the skin. At the end of procedure he was stable when sent to the recovery room. Needle sponge instrument count were correct. No drains were placed.
[2017-09-26] MEDS ORDERED: KETOROLAC 30 MG/ML INJ ONE (11:13)
[2017-09-26 11:14] VITALS: O2SAT 100
[2017-09-26] MEDS ORDERED: MEPERIDINE HCL 25 MG/0.5 ML ONE ×2 (11:43→11:48)
[2017-09-26] MEDS ORDERED: POTASSIUM CL SA 10 MEQ TAB PO ONE (12:00)
[2017-09-26] MEDS ORDERED: TRAMADOL HCL 50 MG TAB PO PRN (12:29)
[2017-09-26] MEDS: FENTANYL CITR 100 MCG/2 ML IV PRN ×3 (12:56→22:31)
[2017-09-26] MEDS: ENOXAPARIN 40 MG/0.4 ML SQ SCH (18:22)
[2017-09-26] MEDS: INSULIN DETEMIR 100 UNIT/1 ML INSULIN SQ SCH (20:56)
[2017-09-27] MEDS: Meropenem 1,000 MG in NA CHLORIDE 0.9% 100 ML IV SCH ×2 (00:48→09:33)
[2017-09-27] MEDS: HYDROCODONE/APAP 10/325 TAB PO PRN ×3 (04:05→14:24)
[2017-09-27 05:50] LABS: Hematocrit 27.6 % (39.6-49.0); MCH 29.9 pg (27.0-35.0); MCV 89.3 fL (80-100); MPV 7.9 fL (7.6-11.3); RBC Red Blood Cell Count 3.09 M/uL (4.33-5.43)
[2017-09-27 06:08] LABS: Bicarbonate 30 mEq/L (21-31); Potassium 3.8 mEq/L (3.6-5.0); Sodium Level 135 mEq/L (135-145)
[2017-09-27 06:11] LABS: BUN Blood Urea Nitrogen 11 mg/dL (6-20); Glomerular Filtration Rate > 90 mL/min (=/>90); Glucose Level 84 mg/dL (65-120); Magnesium 1.7 mg/dL (1.8-2.5)
[2017-09-27] MEDS ORDERED: MAGNESIUM SULFATE 1 gm IVPB 1 GM/100 ML BAG IV ONE (06:14)
[2017-09-27] MEDS ORDERED: NA CHLORIDE 0.9% 250 ML ONE (07:06)
[2017-09-27] MEDS: PANTOPRAZOLE 40MG TABLET PO SCH (07:22)
[2017-09-27] MEDS: INSULIN -REGULAR HUMAN 50 UNIT/0.5 ML ML SQ SCH ×2 (07:30→11:30)
[2017-09-27] MEDS ORDERED: KCL 20 MEQ/100 mL IVPB 20 MEQ/100 ML BAG IV SCH (07:30)
[2017-09-27] MEDS: FERROUS SULFATE 325 MG TAB PO SCH (09:32)
[2017-09-27] MEDS: METFORMIN HCL 500 MG TAB PO SCH (09:32)
[2017-09-27] MEDS: SODIUM CHLORIDE 1 GM TAB PO SCH (09:32)
--- NOTE | 2017-09-27 10:43 | P.PN ---
Subjective Date of Service: 09/27/17 Primary Care Provider: Unknown Chief Complaint: Osteomyelitis Subjective: Improving (Patient continues to improve after left below-knee amputation. Pain seems to be controlled.) Physical Examination - Vital Signs Temperature: 97.4 F Blood Pressure: 131/69 Pulse: 86 Respirations: 22 Pulse Ox (%): 97 - Physical Exam General: Alert, In no apparent distress, Oriented x3, Cooperative HEENT: Atraumatic, Mucous membr. moist/pink Neck: Supple Respiratory: Clear to auscultation bilaterally, Normal air movement Cardiovascular: Normal pulses, Regular rate/rhythm Gastrointestinal: Normal bowel sounds, Soft and benign, Non-distended, No tenderness, No masses, No rebound, No guarding Musculoskeletal: No tenderness, No warmth, Other (Left below-knee amputation noted. Brace in place. Bandage in place.) Neurological: Normal speech, Normal strength at 5/5 x4 extr, Normal tone, Normal affect - Studies Microbiology Data (last 24 hrs): 09/21/17 14:40 Blood - Other Aerobic Blood Culture - Final No growth in 5 days. 09/21/17 14:40 Blood - Other Anaerobic Blood Culture - Final No growth in 5 days. 09/21/17 15:00 Blood - Other Aerobic Blood Culture - Final No growth in 5 days. 09/21/17 15:00 Blood - Other Anaerobic Blood Culture - Final No growth in 5 days. Medications List Reviewed: Yes Assessment & Plan - Problems (Diagnosis) (1) Anemia Current Visit: Yes Status: Acute Plan: Patient with iron deficiency anemia. Overall stable. Continue iron supplementation. Will monitor closely. Qualifiers: Anemia type: iron deficiency Iron deficiency anemia type: unspecified iron deficiency Qualified Code(s): D50.9 - Iron deficiency anemia, unspecified (2) Osteomyelitis of foot, left, acute Onset Date: 09/24/17 Current Visit: Yes Status: Acute Plan: Patient with osteomyelitis and gangrene of the left foot. Patient had left below-knee amputation. Will continue with pain control. Will have physical therapy assess ambulation. Wound culture prior to amputation was positive for E. coli -ESBL. Patient now on meropenem. Will continue with IV antibiotic therapy for 1 more day. Case discussed at length with surgery. [place] plan would be for the patient to go to a skilled facility for rehab. Will check to see with social media community manager if this is possible. Patient wanting to go home. If that is the only option then will wait once the patient is able to ambulate well and is not at risk for fall to consider discharge. Patient will need aggressive wound care (3) Diabetes mellitus Onset Date: 08/08/16 Current Visit: No Status: Chronic Plan: Will continue with Accu-Cheks. Will monitor and adjust appropriately. 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 Tobacco cessation continues to be addressed (5) Gangrene Current Visit: Yes Status: Acute Plan: Continue with above plan of care. Patient had below-knee amputation yesterday (6) Hyponatremia Current Visit: Yes Status: Acute Plan: Will encourage oral intake. This is now in normal range. This is likely from poor nutrition intake Discharge Plan: Other (Home versus skilled placement) Plan to discharge in: 72 Hours Time Spent Managing Pts Care (In Minutes): 55
--- NOTE | 2017-09-27 11:50 | P.DS ---
Admission Date: 09/21/17 Discharge Date: 09/27/17 Primary Care Provider: None Disposition: ROUTINE DISCHARGE Discharge Condition: GOOD Reason for Admission: Osteomyelitis Consultations: Surgery-Dr. Dumont Procedures: Surgery: Left below-knee amputation - Problems (1) Anemia Current Visit: Yes Status: Acute Qualifiers: Anemia type: iron deficiency Iron deficiency anemia type: unspecified iron deficiency Qualified Code(s): D50.9 - Iron deficiency anemia, unspecified (2) Osteomyelitis of foot, left, acute Onset Date: 09/24/17 Current Visit: Yes Status: Acute (3) Diabetes mellitus Onset Date: 08/08/16 Current Visit: No Status: Chronic Qualifiers: Diabetes mellitus type: type 2 Diabetes mellitus termite control representative insulin use: unspecified termite control representative insulin use status Diabetes mellitus complication status : with skin complications Diabetes mellitus complication detail: with other skin complication Qualified Code(s): E11.628 - Type 2 diabetes mellitus with other skin complications (4) Tobacco abuse Onset Date: 08/08/16 Current Visit: No Status: Chronic (5) Gangrene Current Visit: Yes Status: Acute (6) Hyponatremia Current Visit: Yes Status: Acute (7) GERD (gastroesophageal reflux disease) Current Visit: Yes Status: Suspected Qualifiers: Esophagitis presence: esophagitis presence not specified Qualified Code(s) : K21.9 - Gastro-esophageal reflux disease without esophagitis (8) ESBL (extended spectrum beta-lactamase) producing bacteria infection Current Visit: Yes Status: Acute Brief History of Present Illness: 66-year-old male presented to the hospital for failed outpatient treatment of cellulitis to the left foot. Osteomyelitis was suspected. The patient was admitted for evaluation and treatment. Surgery was consulted. Patient with history of diabetes. Patient has had poor compliance. Hospital Course: Patient was evaluated by surgery. Patient was found to have left foot gangrene with osteomyelitis. Wound culture was positive for E. coli and enterobacter. E. coli was positive for ESBL. Surgery recommended left below- knee amputation. Initially the patient was hesitant but agreed. Patient had successful left below-knee amputation. After surgery patient did well with physical therapy. Patient was counseled extensively by surgery concerning wound care. He will need to follow up closely and have excellent diabetic control. At discharge patient will continue with wound care as per surgery. Patient will follow up with surgery this coming Sunday. Physical therapy education will be provided. Patient will continue with a walker at home. Surgery will provide medication for pain-limited supply Patient has diabetes. A1c was elevated. Patient had only been taking metformin 1000 daily at home. Patient likely non compliant with At discharge patient continue with metformin 1000 mg 1 pill twice daily. Recommendation is to maintain blood sugars less 140 fasting and less than 200 after meals. Further adjustment can be done by his PCP. Diet-ADA education will be provided. Patient found to have iron deficiency anemia. At discharge patient will continue with iron 325 mg 1 pill daily. Recommendation to recheck lab-CBC in 4 weeks to monitor his progress. Patient has history of GERD. Patient may take Prilosec over the counter daily. Diabetic foot education will be provided. Fall precautions will be provided including physical therapy recommendation Vital Signs/Physical Exam: Temp Pulse Resp BP Pulse Ox 97.4 F 86 22 H 131/69 97 09/27/17 10:42 09/27/17 10:42 09/27/17 10:42 09/27/17 10:42 09/27/17 10:42 General: Alert, In no apparent distress, Oriented x3, Cooperative HEENT: Atraumatic, Mucous membr. moist/pink Neck: Supple, No Thyromegaly Respiratory: Clear to auscultation bilaterally, Normal air movement Cardiovascular: Normal pulses, Regular rate/rhythm Gastrointestinal: Normal bowel sounds, Soft and benign, Non-distended, No tenderness, No masses, No rebound, No guarding Musculoskeletal: No erythema, No tenderness, No warmth Integumentary: No warmth, No cyanosis, Other (Left below-knee amputation) Neurological: Normal speech, Normal strength at 5/5 x4 extr, Normal tone, Normal affect Lymphatics: No axilla or inguinal lymphadenopathy Laboratory Data at Discharge: WBC 12.4 K/uL (4.3-10.9) H D 09/27/17 05:00 Hgb 9.2 g/dL (13.6-17.9) L 09/27/17 05:00 Hct 27.6 % (39.6-49.0) L 09/27/17 05:00 Plt Count 260 K/uL (152-406) 09/27/17 05:00 Sodium 135 mEq/L (135-145) 09/27/17 05:00 Potassium 3.8 mEq/L (3.6-5.0) 09/27/17 05:00 BUN 11 mg/dL (6-20) 09/27/17 05:00 Creatinine 0.44 mg/dL (0.61-1.24) L 09/27/17 05:00 Glucose 84 mg/dL (65-120) 09/27/17 05:00 Magnesium 1.7 mg/dL (1.8-2.5) L 09/27/17 05:00 Total Bilirubin 1.8 mg/dL (0.3-1.2) H 09/23/17 05:37 AST 67 IU/L (10-42) H 09/23/17 05:37 ALT 40 IU/L (10-60) 09/23/17 05:37 Alkaline Phosphatase 130 IU/L (42-121) H 09/23/17 05:37 Home Medications: Aspirin [Aspirin EC 81 MG] 81 mg PO DAILY #90 tablet. 09/27/17 Ferrous Sulfate [Ferrous Sulfate*] 325 mg PO DAILY #90 tab 09/27/17 Metformin HCl [Metformin HCl ER] 1,000 mg PO BID #60 tab.er.24 09/27/17 Omeprazole Magnesium [Prilosec Otc] 20 mg PO DAILY #90 tablet. 09/27/17 New Medications: Aspirin [Aspirin EC 81 MG] 81 mg PO DAILY #90 tablet. Ferrous Sulfate [Ferrous Sulfate*] 325 mg PO DAILY #90 tab Metformin HCl [Metformin HCl ER] 1,000 mg PO BID #60 tab.er.24 Omeprazole Magnesium [Prilosec Otc] 20 mg PO DAILY #90 tablet. Patient Discharge Instructions: 1. Patient will need a follow up with a PCP to establish care and to follow up this hospitalization. 2. Patient presented with left foot gangrene with osteomyelitis. Patient required left below-knee amputation. Patient tolerated procedure well. At discharge patient will continue with wound care as per surgery. Patient will follow up with surgery this coming Sunday. Physical therapy education will be provided. Patient will continue with a walker at home. Surgery will provide medication for pain- limited supply. 3. Patient has diabetes. At discharge patient continue with metformin 1000 mg 1 pill twice daily. Recommendation is to maintain blood sugars less 140 fasting and less than 200 after meals. Further adjustment can be done by his PCP. Diet-ADA education will be provided. 4. Patient found to have iron deficiency anemia. At discharge patient will continue with iron 325 mg 1 pill daily. Recommendation to recheck lab-CBC in 4 weeks to monitor his progress. 5. Patient has history of GERD. Patient may take Prilosec over the counter daily. 6. Diabetic foot education will be provided. 7. Fall precautions will be provided including physical therapy recommendation Diet: ADA Activity: Fall precautions Time spent managing pt's care (in minutes): 55
[2017-09-27 12:08] VITALS: BP 150/86; TEMP 97.7
[2017-09-27] MEDS ORDERED: INFLUENZA VACCINE (for 5y+) 0.5 ML DOSE IMVAC ONE (15:00)
--- NOTE | 2017-10-14 22:12 | P.OP ---
Preoperative diagnosis: Ulceration osteomyelitis of the 5th metatarsal Postoperative diagnosis: The same Primary procedure: Exploration of lateral aspect of the left foot Secondary procedure: Amputation of the 5th metatarsal and toe Anesthesia: General Estimated blood loss: Less than 10 cc Specimen: Sent for histopathology Operative Technique: The patient was brought to the operating room and placed supine on the table. After the induction of adequate general endotracheal anesthesia, the area of the left foot was prepped with a Betadine solution, and draped in usual aseptic manner. Attention was turned towards the lateral aspect of this left foot. Lateral aspect of the 5th metatarsal has ulcerated and rather all the way down to the bone. There is bone exposed. There is pus coming out of his foot. The 5th metatarsal was amputated as well as the 5th toe. There is still copious amounts of purulent and necrotic material coming from the plantar fascia and plantar tissue of his foot. This was cleaned and debrided. This foot he is not going to be functional due to the amount of infection and ongoing pockets of purulent material that appear to be tracking along the tendons. I will discuss with this patient the need for a below-knee amputation. We had gone over this prior to the surgery but he wanted to make sure there was no option on saving this foot.
== END 2017-09-27 14:41 | disposition home or self-care (01) | DRG 617 ==
LOC: ER 12:25 → SUPCPDRO 12:25 → ERHOLD 16:00 → 4TH 16:40
PROVIDERS: ADMIT Internal Medicine Sleep Medicine; ATTEND Family Medicine
PROC: 0Y6N0ZF Detachment at Left Foot, Partial 5th Ray, Open Approach (ICD-10-PCS; 2017-09-24)
PROC: 02HV33Z Insertion of Infusion Device into Superior Vena Cava, Percutaneous Approach (ICD-10-PCS; 2017-09-25)
PROC: 0Y6J0Z2 Detachment at Left Lower Leg, Mid, Open Approach (ICD-10-PCS; principal; 2017-09-26 09:45)
DX: E11.69 Type 2 diabetes mellitus with other specified complication (principal); M86.172 Other acute osteomyelitis, left ankle and foot; E11.52 Type 2 diabetes mellitus with diabetic peripheral angiopathy with gangrene; I96 Gangrene, not elsewhere classified; E87.1 Hypo-osmolality and hyponatremia; M77.32 Calcaneal spur, left foot; D50.9 Iron deficiency anemia, unspecified; Z23 Encounter for immunization
CPT/HCPCS: 36415; 71045; 80048; 80053; 80202; 82607; 82728; 82962; 83540; 83605; 83735; 84466; 85025; 85027; 87040; 87070; 87077; 87186; 87205; 88305; 88307; 88311; 96365; 96368; 97163; 99285; J0692; J1650; J2175; J2250; J2543; J3010; J3370; J3475; J3590; J7030; Q2035

== ENCOUNTER 2017-12-11 08:03 | Emergency (ER) | payer SELFPAY ==
--- NOTE | 2017-12-11 08:41 | ER ---
Nurse's Notes [facility] Name: Amaury Matamoros Age: 66 yrs Sex: Male : 1950 Arrival Date: 12/11/2017 Time: 08:07 Bed 14 Private MD: None, None Diagnosis: Pressure ulcer of sacral region, stage 1 Presentation: 12/11 08:13 Presenting complaint: Patient states: Severe pain in low back, neck, sacrum, and under hb both arms after wheeling self around for 5 hrs in wheelchair 3 days ago. Transition of care: patient was not received from another setting of care. Onset of symptoms was December 08, 2017. Care prior to arrival: None. 08:13 Method Of Arrival: Wheelchair hb 08:13 Acuity: ALEJANDRA 3 hb 08:20 Initial Sepsis Screen: Does the patient meet any 2 criteria? No. Patient's initial rb1 sepsis screen is negative. Does the patient have a suspected source of infection? No. Patient's initial sepsis screen is negative. 08:20 Risk Assessment: Do you want to hurt yourself or someone else? Patient reports no rb1 desire to harm self or others. Historical: - Allergies: 08:16 PENICILLINS; hb - Home Meds: 08:16 Metformin Oral [Active]; hb - PMHx: 08:16 Cellulitis; Diabetes - NIDDM; hb - PSHx: 08:16 BKA - LEFT; hb - Immunization history:: Adult Immunizations up to date. - Social history:: Smoking status: Patient/guardian denies using tobacco. - Ebola Screening: : No symptoms or risks identified at this time. Screenin:20 Abuse screen: Denies threats or abuse. Nutritional screening: No deficits noted. rb1 Tuberculosis screening: No symptoms or risk factors identified. Fall Risk No fall in past 12 months (0 pts). Secondary diagnosis (15 points) impaired mobility, No IV (0 pts). Ambulatory Aid- Crutches/Cane/Walker (15 pts). Gait- Normal/Bed Rest/Wheelchair (0 pts) Mental Status- Oriented to own ability (0 pts). Total Monahan Fall Scale indicates Low Risk Score (25-44 pts). Fall prevention measures have been instituted. Side Rails Up X 2 Placed close to Nursing Station 1:1 attendant Assigned to Pt. Frequent Obs/Assesments occuring Family Present and informed to notify staff if they need to leave bedside As available Patient and Family Educated on Fall Prevention Program and strategies. Assessment: 08:20 General: Appears uncomfortable, Behavior is calm, cooperative. Pain: Complains of pain rb1 in back Pain currently is 10 out of 10 on a pain scale. Neuro: Level of Consciousness is awake, alert, obeys commands, Oriented to person, place, time, situation. Cardiovascular: Capillary refill < 3 seconds is brisk in bilateral fingers. Respiratory: Airway is patent Respiratory effort is even, unlabored, Respiratory pattern is regular, symmetrical. GI: No signs and/or symptoms were reported involving the gastrointestinal system. : No signs and/or symptoms were reported regarding the genitourinary system. Derm: Skin is pink, warm \\T\\ dry. Musculoskeletal: Amputation of BKA. 08:40 Reassessment: Called [facility] and spoke with Gabi to see if the pt. would be rb1 able to be seen today. Gabi stated, "We don't have anything today and we need to run his insurance so he'll need to schedule an appointment." Gabi made an appointment for December 13, 2017 at 0800. The pt. was notified of the appointment time and provided the telephone number in case it was necessary to change the appointment. 08:50 Reassessment: pt. requested something for pain before being discharged. Dr. Pemberton rb1 notified and stated, "he can have some regular Tylenol." I asked the pt. if he wanted the Tylenol, but the pt. refused it. Vital Signs: 08:15 BP 122 / 75; Pulse 102; Resp 18; Temp 98; Pulse Ox 97% on R/A; Weight 45.36 kg; Height hb 5 ft. 2 in. (157.48 cm); Pain 10/10; 08:15 Body Mass Index 18.29 (45.36 kg, 157.48 cm) hb ED Course: 08:07 Patient arrived in ED. sb2 08:08 None, None is Private Physician. sb2 08:15 Triage completed. hb 08:15 Arm band placed on left wrist. hb 08:18 Curtis Pemberton MD is Attending Physician. gs 08:20 Patient has correct armband on for positive identification. Bed in low position. Call rb1 light in reach. Side rails up X 1. Pulse ox on. NIBP on. 08:42 Gabi Cook, RN is Primary Nurse. rb1 08:55 No provider procedures requiring assistance completed. Patient did not have IV access rb1 during this emergency room visit. Administered Medications: No medications were administered Outcome: 08:40 Discharge ordered by . 08:55 Discharged to home via wheelchair, with family. rb1 08:55 Condition: stable 08:55 Discharge instructions given to patient, Instructed on discharge instructions, follow up and referral plans. Demonstrated understanding of instructions, follow-up care, Prescriptions given X none. 09:03 Patient left the ED. rb1 Signatures: Gabi Cook, RN RN [facility] Micaela Zuñiga RN RN Curtis Pemberton MD MD Dorie Cunha2 Corrections: (The following items were deleted from the chart) 08:16 08:15 BP 124 / 104; Pulse 102bpm; Resp 18bpm; Pulse Ox 97% RA; Temp 98F; 45.36 kg; hb Height 5 ft. 2 in.; BMI: 18.2; Pain 10/10; hb 08:53 08:20 Musculoskeletal: Amputation of left leg. rb1 rb1 08:55 08:53 Patient has correct armband on for positive identification. Bed in low position. rb1 Call light in reach. Side rails up X 1. rb1 08:55 08:53 Pulse ox on. NIBP on. rb1 rb1 08:56 08:53 Abuse screen: Denies threats or abuse. rb1 rb1 08:56 08:53 Nutritional screening: No deficits noted. rb1 rb1 08:56 08:53 Tuberculosis screening: No symptoms or risk factors identified. rb1 rb1 08:56 08:53 Fall Risk No fall in past 12 months (0 pts). Secondary diagnosis (15 points) rb1 impaired mobility, No IV (0 pts). Ambulatory Aid- Crutches/Cane/Walker (15 pts). Gait- Normal/Bed Rest/Wheelchair (0 pts) Mental Status- Oriented to own ability (0 pts). Total Monahan Fall Scale indicates Low Risk Score (25-44 pts). Fall prevention measures have been instituted. Side Rails Up X 2 Placed close to Nursing Station 1:1 attendant Assigned to Pt. Frequent Obs/Assesments occuring Family Present and informed to notify staff if they need to leave bedside As available Patient and Family Educated on Fall Prevention Program and strategies. rb1
--- NOTE | 2017-12-11 09:04 | EDPHYS ---
Physician Documentation [facility] Name: Amaury Matamoros Age: 66 yrs Sex: Male : 1950 Arrival Date: 12/11/2017 Time: 08:07 Bed 14 Private MD: None, None ED Physician Curtis Pemberton HPI: 12/11 08:47 This 66 yrs old Male presents to ER via Wheelchair with complaints of TAILBONE gs PAIN, Doesn't Feel Right. 08:47 the patient presents with a swollen area of the coccyx. Description: tender. Onset: The gs symptoms/episode began/occurred yesterday. Possible cause(s): pressure sore, is wheelchair bound. Associated signs and symptoms: Pertinent negatives: fever. Severity of symptoms: At their worst the symptoms were moderate, in the emergency department the symptoms are unchanged. Historical: - Allergies: 08:16 PENICILLINS; hb - Home Meds: 08:16 Metformin Oral [Active]; hb - PMHx: 08:16 Cellulitis; Diabetes - NIDDM; hb - PSHx: 08:16 BKA - LEFT; hb - Immunization history:: Adult Immunizations up to date. - Social history:: Smoking status: Patient/guardian denies using tobacco. - Ebola Screening: : No symptoms or risks identified at this time. ROS: 08:47 All other systems are negative. gs Exam: 08:47 Head/Face: Normocephalic, atraumatic. Cardiovascular: Regular rate and rhythm with a gs normal S1 and S2. No gallops, murmurs, or rubs. Normal PMI, no JVD. No pulse deficits. Respiratory: Lungs have equal breath sounds bilaterally, clear to auscultation and percussion. No rales, rhonchi or wheezes noted. No increased work of breathing, no retractions or nasal flaring. Abdomen/GI: Soft, non-tender, with normal bowel sounds. No distension or tympany. No guarding or rebound. No evidence of tenderness throughout. Back: No spinal tenderness. No costovertebral tenderness. Full range of motion. 08:47 Skin: lesion(s), noted, and can be described as erythematous, tender, mild induration, not hot, erythema mild. 08:47 Neuro: Exam negative for acute changes. Vital Signs: 08:15 BP 122 / 75; Pulse 102; Resp 18; Temp 98; Pulse Ox 97% on R/A; Weight 45.36 kg; Height hb 5 ft. 2 in. (157.48 cm); Pain 10/10; 08:15 Body Mass Index 18.29 (45.36 kg, 157.48 cm) MDM: 08:31 Patient medically screened. 08:47 Differential diagnosis: pressure sore. Data reviewed: vital signs, nurses notes. 08:47 ED course: have referred to wound care does not have appropriate wc pad. Administered Medications: No medications were administered Disposition: 12/11/17 08:40 Discharged to Home. Impression: Pressure ulcer of sacral region, stage 1. - Condition is Stable. - Discharge Instructions: Skin Ulcer, Pressure Ulcer. - Medication Reconciliation Form, Thank You Letter, Antibiotic Education, Prescription Opioid Use form. - Follow up: Private Physician; When: 1 - 2 days; Reason: Re-evaluation by your physician. Signatures: Gabi Cook RN RN rb1 Micaela Zuñiga RN RN Curtis Pemberton MD MD Corrections: (The following items were deleted from the chart) 09:03 08:40 12/11/2017 08:40 Discharged to Home. Impression: Pressure ulcer of sacral region, rb1 stage 1. Condition is Stable. Forms are Medication Reconciliation Form, Thank You Letter, Antibiotic Education, Prescription Opioid Use. Follow up: Private Physician; When: 1 - 2 days; Reason: Re-evaluation by your physician.
[2017-12-11 09:06] VITALS: BP 122/75; TEMP 98; O2SAT 97
== END 2017-12-11 09:03 | disposition home or self-care (01) ==
LOC: ER 08:03
DX: L89.151 Pressure ulcer of sacral region, stage 1 (principal); E11.9 Type 2 diabetes mellitus without complications; Z88.0 Allergy status to penicillin
CPT/HCPCS: 99283

== ENCOUNTER 2017-12-16 18:56 | Inpatient (IN) | payer OTHER, SELFPAY ==
[2017-12-16 19:54] LABS: Urine Blood TRACE (NEG); Urine Glucose TRACE (NEG); Urine Protein 2+ (NEG); Urine pH 6.5 (5.0-7.0)
[2017-12-16 20:13] LABS: Urine Bacteria <20 /HPF (NONE SEEN); Urine RBC <5 /HPF (NONE SEEN)
[2017-12-16 20:14] LABS: Urine Culture Reflex Order REFLEXED
[2017-12-16] MEDS ORDERED: HYDROCODONE/APAP 5/325 MG TAB ONE (20:15)
[2017-12-16 20:26] LABS: Absolute Lymphocytes (CBC) 1.4 K/uL (0.7-4.9); Absolute Monocytes 1.2 K/uL (0.1-1.3); Absolute Neutrophil 12.5 K/uL (1.8-8.0); Basophils % 0.2 % (0-1.3); Eosinophils % 0.1 % (0-4.4); Hematocrit 40.7 % (39.6-49.0); Lymphocytes % 9.1 % (15.3-44.8); MCH 29.8 pg (27.0-35.0); MCV 88.1 fL (80-100); MPV 8.8 fL (7.6-11.3); Monocytes % 8.2 % (3.3-12.3); RBC Red Blood Cell Count 4.62 M/uL (4.33-5.43)
[2017-12-16 20:40] LABS: Glucose Level 347 mg/dL (65-120); Lipase 21 U/L (22-51)
[2017-12-16 20:46] LABS: Albumin 2.8 g/dL (3.2-5.5); Alkaline Phosphatase 147 IU/L (42-121); BUN Blood Urea Nitrogen 10 mg/dL (6-20); Bilirubin Direct 0.4 mg/dL (0-0.2); Protein, Total 7.8 g/dL (6.0-8.3)
[2017-12-16 20:50] LABS: ALT/SGPT 35 IU/L (10-60); AST/SGOT 55 IU/L (10-42); Amylase Level 34 U/L (28-100); Bicarbonate 29 mEq/L (21-31); Potassium 3.7 mEq/L (3.6-5.0); Sodium Level 126 mEq/L (135-145)
--- NOTE | 2017-12-16 21:52 | RAD REPORT ---
EXAM DESCRIPTION: CT - Abdomen Pelvis W Contrast - 12/16/2017 9:27 pm CLINICAL HISTORY: Abdominal pain with nausea. COMPARISON: none. TECHNIQUE: Computed axial tomography of the abdomen pelvis was obtained. 100 cc Isovue-300 was admin istered intravenously. Oral contrast was not requested which limits evaluation of bowel. All CT scans are performed using dose optimization technique as appropriate and may include automated exposure control or mA/KV adjustment according to patient size. FINDINGS: The liver has a mildly nodular contour. The attenuation is mildly diminished consistent wi th fatty infiltration. The portal vein is patent. The spleen, pancreas, adrenals and kidneys appear unremarkable. There is no evidence of diverticulitis. A large amount stool is present throughout the colon. The rec mira is distended with stool measuring 6.7 centimeters. A a lipoma measuring 5.3 centimeters is present within the subcutaneous fat of the anterolateral righ t pelvis. There is extensive edema within the posterior subcutaneous tissues of the pelvis and buttocks. Destru ction of the coccyx is not seen. There is no evidence of diverticulitis. IMPRESSION: Mild fatty infiltration liver. Mildly nodular contour of the liver may indicate chronic disease. Large amount of stool throughout the colon. The rectum is mildly distended with stool. Diffuse edema within the posterior subcutaneous tissues of the pelvis and buttocks may indicate a anupam lulitis
[2017-12-16] MEDS ORDERED: NA CHLORIDE 0.9% 500 ML ONE (22:15)
[2017-12-16] MEDS ORDERED: NA CHLORIDE 0.9% 1,000 ML ONE (22:44)
--- NOTE | 2017-12-16 22:47 | ER ---
Nurse's Notes [facility] Name: Amaury Matamoros Age: 66 yrs Sex: Male : 1950 Arrival Date: 12/16/2017 Time: 18:58 Bed 16 Private MD: None, None Diagnosis: Cellulitis of buttock-Bilateral Presentation: 12/16 19:00 Presenting complaint: Patient states: Patient reports to be a diabetic and he is being ao felling weak for the past few days and also complains of nausea and vomiting. Transition of care: patient was not received from another setting of care. Onset of symptoms is unknown. Risk Assessment: Do you want to hurt yourself or someone else? Patient reports no desire to harm self or others. Initial Sepsis Screen: Does the patient meet any 2 criteria? HR > 90 bpm. No. Patient's initial sepsis screen is negative. Does the patient have a suspected source of infection?. Care prior to arrival: None. 19:00 Method Of Arrival: Wheelchair ao 19:00 Acuity: ALEJANDRA 3 ao Historical: - Allergies: 19:06 PENICILLINS; ao - Home Meds: 19:06 Metformin Oral [Active]; Aspirin Oral [Active]; ao - PMHx: 19:06 Cellulitis; Diabetes - NIDDM; Hypertension; ao - PSHx: 19:06 left knee amputation; ao - Immunization history:: Adult Immunizations up to date. - Social history:: Smoking status: Patient/guardian denies using tobacco, Patient/guardian denies using alcohol, street drugs. - Ebola Screening: : Patient negative for fever greater than or equal to 101.5 degrees Fahrenheit, and additional compatible Ebola Virus Disease symptoms Patient denies exposure to infectious person Patient denies travel to an Ebola-affected area in the 21 days before illness onset. Screenin:22 Abuse screen: Denies threats or abuse. Denies injuries from another. Nutritional bs1 screening: No deficits noted. Tuberculosis screening: No symptoms or risk factors identified. Fall Risk None identified. Assessment: 19:24 General: Appears uncomfortable, slender, unkempt, Behavior is cooperative, anxious. bs1 Pain: Complains of pain in lower abdomen. Neuro: Level of Consciousness is awake, alert, obeys commands, Oriented to person, place, time, situation. Cardiovascular: Denies chest pain, shortness of breath, Heart tones S1 S2 present Capillary refill < 3 seconds Patient's skin is warm and dry. Respiratory: Airway is patent Trachea midline Respiratory effort is even, unlabored, Respiratory pattern is regular, symmetrical, Breath sounds are clear bilaterally. GI: Abdomen is flat, Bowel sounds present X 4 quads. GI: Reports lower abdominal pain, constipation, nausea. : Urine is urine dark leo Reports burning with urination, pain with urination. EENT: No deficits noted. Derm: Skin is intact, Skin is pink, warm \T\ dry. redness noted to left buttocks. patient reports pain, swelling noted. Musculoskeletal: Amputation of left BKA. 20:30 Reassessment: No changes from previously documented assessment. Patient and/or family bs1 updated on plan of care and expected duration. Pain level reassessed. Patient is alert, oriented x 3, equal unlabored respirations, skin warm/dry/pink. Patient still c/o abdominal pain. 22:00 Reassessment: Patient and/or family updated on plan of care and expected duration. Pain bs1 level reassessed. Patient is alert, oriented x 3, equal unlabored respirations, skin warm/dry/pink. Patient reports having a hard time urinating. 23:25 Reassessment: Dr Azul at bedside. Li cath inserted by ADENIKE Spencer,patient bs1 c/o pain in pelvic area. Urine in Li 800cc, Dr Azul hospitalist gave verbal order if urine goes above 1L to clamp for 10 minutes and resume. Vital Signs: 19:03 BP 132 / 70; Pulse 120; Resp 20; Temp 99.0(T); Pulse Ox 95% ; Weight 45.36 kg (R); ao Height 5 ft. 2 in. (157.48 cm) (R); Pain 6/10; 20:00 BP 159 / 92; Pulse 123; Resp 19; Pulse Ox 99% on R/A; bs1 21:15 BP 154 / 88; Pulse 115; Resp 16; Pulse Ox 97% on R/A; bs1 22:30 BP 155 / 85; Pulse 105; Resp 16; Temp 98.9(O); Pulse Ox 96% on R/A; bs1 23:30 BP 145 / 84; Pulse 105; Resp 18 S; Pulse Ox 98% on R/A; bs1 12/17 00:30 BP 151 / 86; Pulse 89; Resp 16; Temp 98.9(O); Pulse Ox 97% on R/A; bs1 12/16 19:03 Body Mass Index 18.29 (45.36 kg, 157.48 cm) ao ED Course: 12/16 18:58 Patient arrived in ED. sb2 18:59 None, None is Private Physician. sb2 19:03 Triage completed. ao 19:06 Arm band placed on right wrist. Patient placed in an exam room, on a stretcher, on ao oxygen. 19:09 Durga Manning PA is PHCP. [facility] 19:09 Curtis Pemberton MD is Attending Physician. [facility] 19:22 Nadine Nunes, COURTNEY is Primary Nurse. bs1 19:22 Patient has correct armband on for positive identification. Bed in low position. Call bs1 light in reach. Side rails up X 1. Pulse ox on. NIBP on. 20:00 Radiology exam delayed due to lab results not completed at this time. (BUN/Creatinine). cw1 20:15 Inserted saline lock: 20 gauge in right antecubital area, using aseptic technique. bs1 Blood collected. 21:27 CT Abd/Pelvis - W/Contrast In Process Unspecified. EDMS 21:30 CT completed. Patient moved back from CT. bq 21:44 PHCP role handed off by Durga Manning PA cp 21:44 Wally Espinosa PA is PHCP. cp 22:45 Mame Quiroz MD is Hospitalizing Provider. cp 23:23 Li cath inserted, using sterile technique, 16 Fr., by pole frame construction worker, balloon inflated, to oe gravity drainage, Patient tolerated well. 12/17 00:51 No provider procedures requiring assistance completed. Patient admitted, IV remains in bs1 place. intact. Administered Medications: 12/16 20:15 Drug: [place] 5 mg-325 mg 1 tabs Route: PO; bs1 12/17 00:53 Follow up: Response: No adverse reaction bs1 12/16 22:17 Drug: NS 0.9% 500 ml Route: IV; Rate: bolus; Site: right forearm; bs1 23:01 Follow up: IV Status: Completed infusion bs1 22:49 Drug: NS 0.9% 1000 ml Route: IV; Rate: 100 ml/hr; Site: right forearm; bs1 12/17 00:53 Follow up: IV Status: Infusion continued upon admission bs1 12/16 22:56 Drug: vancoMYCIN 1 grams Route: IVPB; Infused Over: 2 hrs; Site: right forearm; bs1 12/17 00:52 Follow up: IV Status: Completed infusion bs1 00:28 Drug: Aztreonam 2 grams Route: IVPB; Infused Over: 30 mins; Site: right forearm; bs1 00:52 Follow up: IV Status: Completed infusion bs1 Outcome: 12/16 22:46 Decision to Hospitalize by Provider. cp 12/17 00:51 Admitted to Tele accompanied by tech, via stretcher, room 404, with chart, Report bs1 called to COURTNEY Acosta Condition: stable Instructed on the need for admit. 01:22 Patient left the ED. bs1 Signatures: Dispatcher [employer] EDMS Durga Manning PA PA jmm Quilty, Betty bq Woodley, Crystal cw1 Wally Espinosa PA PA cp Ortiz, Alex, RN RN Tj Marquez Brittany RN RN bs1 Dorie Cunha sb2 Corrections: (The following items were deleted from the chart) 12/16 22:59 19:24 Derm: Skin is intact, Skin is pink, warm \T\ dry. bs1 bs1 12/17 00:40 12/16 19:24 Derm: Skin is intact, Skin is pink, warm \T\ dry. redness noted to right bs1 buttocks. patient reports pain, swelling noted bs1
--- NOTE | 2017-12-16 22:47 | EDPHYS ---
Physician Documentation [facility] Name: Amaury Matamoros Age: 66 yrs Sex: Male : 1950 Arrival Date: 12/16/2017 Time: 18:58 Bed 16 Private MD: None, None ED Physician Curtis Pemberton HPI: 12/16 19:46 This 66 yrs old Male presents to ER via Wheelchair with complaints of General jmm Weakness, Nausea. 19:46 The patient presents to the emergency department with nausea, coccyx pain, nausea, jmm generalized weakness. Onset: The symptoms/episode began/occurred gradually, 5 day(s) ago. Possible causes: cellulitis, abscess. 19:50 This is a 66 year old male with a hx of DM and HX that presents to the ED with nausea, jmm generalized weakness, and coccygyl region pain. Patient states he was recently evaluated in the ED and diagnosed with a pressure ulcer and has not follow up with wound care. patient denies fever. . Historical: - Allergies: 19:06 PENICILLINS; ao - Home Meds: 19:06 Metformin Oral [Active]; Aspirin Oral [Active]; ao - PMHx: 19:06 Cellulitis; Diabetes - NIDDM; Hypertension; ao - PSHx: 19:06 left knee amputation; ao - Immunization history:: Adult Immunizations up to date. - Social history:: Smoking status: Patient/guardian denies using tobacco, Patient/guardian denies using alcohol, street drugs. - Ebola Screening: : Patient negative for fever greater than or equal to 101.5 degrees Fahrenheit, and additional compatible Ebola Virus Disease symptoms Patient denies exposure to infectious person Patient denies travel to an Ebola-affected area in the 21 days before illness onset. ROS: 19:50 Cardiovascular: Negative for chest pain, palpitations, and edema, Respiratory: Negative jmm for shortness of breath, cough, wheezing, and pleuritic chest pain. 19:50 Skin: Negative for injury, rash, and discoloration. 19:50 Constitutional: Positive for malaise. 19:50 Abdomen/GI: Positive for abdominal pain, nausea. 19:50 Skin: Positive for erythema, swelling. 19:50 All other systems are negative. Exam: 19:50 Head/Face: atraumatic. jmm 19:50 Constitutional: The patient appears in no acute distress, alert, awake. 19:50 Cardiovascular: Rate: normal, Rhythm: regular. 19:50 Respiratory: the patient does not display signs of respiratory distress, Respirations: normal, Breath sounds: are clear throughout. 19:50 Skin: erythema and induration is noted to the coccygeal region. no draining exudate is appreciated. . 19:50 Neuro: Orientation: is normal, Mentation: is normal, Memory: is normal. Vital Signs: 19:03 BP 132 / 70; Pulse 120; Resp 20; Temp 99.0(T); Pulse Ox 95% ; Weight 45.36 kg (R); ao Height 5 ft. 2 in. (157.48 cm) (R); Pain 6/10; 20:00 BP 159 / 92; Pulse 123; Resp 19; Pulse Ox 99% on R/A; bs1 21:15 BP 154 / 88; Pulse 115; Resp 16; Pulse Ox 97% on R/A; bs1 22:30 BP 155 / 85; Pulse 105; Resp 16; Temp 98.9(O); Pulse Ox 96% on R/A; bs1 23:30 BP 145 / 84; Pulse 105; Resp 18 S; Pulse Ox 98% on R/A; bs1 04 00:30 BP 151 / 86; Pulse 89; Resp 16; Temp 98.9(O); Pulse Ox 97% on R/A; bs1 12/16 19:03 Body Mass Index 18.29 (45.36 kg, 157.48 cm) ao MDM: 12/16 19:34 Patient medically screened. jmm 19:50 Differential diagnosis: cellulitis, gastroenteritis, urinary tract infection, jmm hyperglycemia. Data reviewed: vital signs, nurses notes. 21:45 ED course: 2144- I discussed the patient with Wally Espinosa PA-C whom will assume care. He pavithra will review ct imaging and reassess the patient for final disposition. patient is currently alert and non toxic in appearance in the ED. 22:43 Physician consultation: Mame Quiroz MD was called at 22:43, was contacted at 22:43, cp regarding admission, to the medical/surgical unit. patient's condition. 12/16 19:38 Order name: Urine Dipstick--Ancillary (enter results); Complete Time: 20:29 ms 12/16 19:45 Order name: Amylase, Serum; Complete Time: 21:19 [facility] 12/16 19:45 Order name: Basic Metabolic Panel; Complete Time: 21:19 [facility] 12/16 19:45 Order name: CBC with Diff; Complete Time: 21:19 [facility] 12/16 22:36 Interpretation: Normal except: WBC 15.2; LISET% 82.4; LYM% 9.1; NEUT A 12.5. cp 12/16 19:45 Order name: Creatinine for Radiology; Complete Time: 21:19 [facility] 12/16 19:45 Order name: Hepatic Function; Complete Time: 21:19 [facility] 12/16 19:45 Order name: Lipase; Complete Time: 21:19 [facility] 12/16 19:45 Order name: Urine Microscopic Only; Complete Time: 20:29 [facility] 12/16 19:45 Order name: Blood Culture Adult (2) [facility] 12/16 19:45 Order name: Lactate; Complete Time: 21:19 [facility] 12/16 19:45 Order name: CT Abd/Pelvis - W/Contrast; Complete Time: 22:05 [facility] 12/16 20:15 Order name: Urine Culture [facility] 12/16 19:45 Order name: IV Saline Lock; Complete Time: 22:40 [facility] 12/16 19:45 Order name: Labs collected and sent; Complete Time: 21:43 [facility] 12/16 19:45 Order name: Urine Dipstick-Ancillary (obtain specimen); Complete Time: 21:44 [facility] 12/16 23:15 Order name: Cath; Complete Time: 23:23 bs1 Administered Medications: 20:15 Drug: [place] 5 mg-325 mg 1 tabs Route: PO; bs1 12/17 00:53 Follow up: Response: No adverse reaction bs1 12/16 22:17 Drug: NS 0.9% 500 ml Route: IV; Rate: bolus; Site: right forearm; bs1 23:01 Follow up: IV Status: Completed infusion bs1 22:49 Drug: NS 0.9% 1000 ml Route: IV; Rate: 100 ml/hr; Site: right forearm; bs1 12/17 00:53 Follow up: IV Status: Infusion continued upon admission bs1 12/16 22:56 Drug: vancoMYCIN 1 grams Route: IVPB; Infused Over: 2 hrs; Site: right forearm; bs1 12/17 00:52 Follow up: IV Status: Completed infusion bs1 00:28 Drug: Aztreonam 2 grams Route: IVPB; Infused Over: 30 mins; Site: right forearm; bs1 00:52 Follow up: IV Status: Completed infusion bs1 Disposition: 12/16/17 22:46 Hospitalization ordered by Mame Quiroz for Inpatient Admission. Preliminary diagnosis is Cellulitis of buttock - Bilateral. - Bed requested for Telemetry/MedSurg (Inpatient). - Status is Inpatient Admission. bs1 - Condition is Stable. - Problem is new. - Symptoms are unchanged. UTI on Admission? No Addendum: 12/20/2017 12:17 Co-signature as Attending Physician, Curtis Pemberton MD. g s Signatures: Dispatcher [employer] EDMS Emperatriz Rivera RN RN kl Mickail, Joel, PA PA jmm Page, Corey, PA PA cp Ortiz, Alex, RN RN ao Starr, Gregory, MD MD gs Salazar, Brittany, RN RN bs1 Corrections: (The following items were deleted from the chart) 12/16 22:47 22:46 Hospitalization Ordered by Mame Quiroz MD for Inpatient Admission. Preliminary cp diagnosis is Cellulitis of buttock - Right. Bed requested for Telemetry/MedSurg (Inpatient). Status is Inpatient Admission. Condition is Stable. Problem is new. Symptoms are unchanged. UTI on Admission? No. cp 12/17 00:14 12/16 22:47 12/16/2017 22:46 Hospitalization Ordered by Mame Quiroz MD for Inpatient kl Admission. Preliminary diagnosis is Cellulitis of buttock - Bilateral. Bed requested for Telemetry/MedSurg (Inpatient). Status is Inpatient Admission. Condition is Stable. Problem is new. Symptoms are unchanged. UTI on Admission? No. cp 12/17 01:22 00:14 12/16/2017 22:46 Hospitalization Ordered by Mame Quiroz MD for Inpatient bs1 Admission. Preliminary diagnosis is Cellulitis of buttock - Bilateral. Bed requested for Telemetry/MedSurg (Inpatient). Status is Inpatient Admission. Condition is Stable. Problem is new. Symptoms are unchanged. UTI on Admission? No. kl
[2017-12-16] MEDS ORDERED: VANCOMYCIN 1 GM/250 ML BAG ONE (22:51)
[2017-12-16] MEDS ORDERED: NA CHLORIDE 0.9% 100 ML IV ONE (23:07)
[2017-12-16] MEDS ORDERED: AZTREONAM 1 GM/VIAL ONE (23:07)
--- NOTE | 2017-12-17 00:06 | P.HP ---
Certification for Inpatient Patient admitted to: Inpatient With expected LOS: >2 Midnights Practitioner: I am a practitioner with admitting privileges, knowledge of patient current condition, hospital course, and medical plan of care. 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 Gradually, the size was increasing, having redness discoloration of the skin around. He has had fever as well, 100.2 F. The patient also had some episodes of nausea and vomiting. At arrival he was very uncomfortable, stating that was not able to urinate well for the last couple of days. He had lower abdominal pain. We placed a winkler catheter and drained 800 ml. Subsequently his symptoms improved. Lab work remarkable for leukocytosis, 15.2K , lactic acid normal level. UA abnormal showing trace leukocytes esterase. No fever in ED. Allergies Penicillins Allergy (Intermediate, Verified 09/13/16 12:55) Rash Home Medications: Aspirin [Aspirin EC 81 MG] 81 mg PO DAILY #90 tablet. 09/27/17 Ferrous Sulfate [Ferrous Sulfate*] 325 mg PO DAILY #90 tab 09/27/17 Metformin HCl [Metformin HCl ER] 1,000 mg PO BID #60 tab.er.24 09/27/17 Omeprazole Magnesium [Prilosec Otc] 20 mg PO DAILY #90 tablet. 09/27/17 - Past Medical/Surgical History Diabetic: Yes -: Diabetes mellitus type 2 -: HX of Tobacco abuse -: Hx of Alcohol use -: Diabetic neuropathy -: Left Knee Surgery -: Left BKA Psychosocial/ Personal History: He is , has 4 children. He is disabled. - Family History Father -: Heart disease, Hypertension, Diabetes, Cancer Mother -: Diabetes, Stroke - Social History Smoking Status: Former smoker Alcohol use: No CD- Drugs: No Caffeine use: No Place of Residence: Home Review of Systems 10-point ROS is otherwise unremarkable Physical Examination - Physical Exam General: Alert, Moderate distress (due to lower abdominal pain, resolved after Winkler catheter placement.) HEENT: Atraumatic, PERRLA, Mucous membr. moist/pink, EOMI, Sclerae nonicteric Neck: Supple, 2+ carotid pulse no bruit, No LAD, Without JVD or thyroid abnormality Respiratory: Clear to auscultation bilaterally, Normal air movement Cardiovascular: Regular rate/rhythm, Normal S1 S2 Gastrointestinal: Normal bowel sounds, Tenderness (lower abdomen) Musculoskeletal: No tenderness, Other (left BKA) Integumentary: Tenderness/swelling, Erythema, Warmth (buttock) Neurological: Normal speech, Normal strength at 5/5 x4 extr, Normal tone, Normal affect Lymphatics: No axilla or inguinal lymphadenopathy - Studies Laboratory Data (last 24 hrs) 12/16/17 20:15: Creatinine 0.60 L 12/16/17 20:15: WBC 15.2 H, Hgb 13.7, Hct 40.7, Plt Count 206 12/16/17 20:15: Sodium 126 L, Potassium 3.7, BUN 10, Creatinine 0.59 L, Glucose 347 H, Total Bilirubin 1.0, AST 55 H, ALT 35, Alkaline Phosphatase 147 H, Amylase 34, Lipase 21 L Assessment and Plan - Problems (Diagnosis) (1) UTI (urinary tract infection) Current Visit: Yes Status: Acute Qualifiers: Urinary tract infection type: acute cystitis Hematuria presence: without hematuria Qualified Code(s): N30.00 - Acute cystitis without hematuria (2) Urinary retention Current Visit: Yes Status: Acute (3) Cellulitis of right buttock Current Visit: No Status: Acute (4) Diabetes mellitus Onset Date: 08/08/16 Current Visit: No Status: Chronic Qualifiers: Diabetes mellitus type: type 2 Diabetes mellitus jail insulin use: unspecified terminal superintendent insulin use status Diabetes mellitus complication status : with skin complications Diabetes mellitus complication detail: with other skin complication Qualified Code(s): E11.628 - Type 2 diabetes mellitus with other skin complications (5) Hyponatremia Current Visit: No Status: Acute - Plan #1 buttock cellulitis: blood cultures done, CT abd/pelvis remarkable for diffuse edema within the posterior subcutaneous tissues of the pelvis and buttocks may indicate a cellulitis. Will continue with IV Vancomycin and Aztreonam since is allergic to penicillin. Will consult Surgery team for potential I&D. #2 urinary retention: in context of UTI, on top of possible enlarged prostate. Winkler catheter placed, will start Flomax. Consult Urologist. #3 DM: will order SSI. #4 UTI: urine culture in process. Continue empiric antibiotics. - Advance Directives Does patient have a Living Will: No Does patient have a Durable POA for Healthcare: No - Code Status/Comfort Care Code Status Assessed: Yes Code Status: Full Code
[2017-12-17] MEDS ORDERED: ACETAMINOPHEN 500 MG TAB PO PRN (01:43)
[2017-12-17] MEDS ORDERED: NA CHLORIDE 0.9% 1,000 ML IV SCH (01:43)
[2017-12-17] MEDS ORDERED: ONDANSETRON 4 MG/2 ML VIAL IV PRN (01:43)
[2017-12-17] MEDS ORDERED: POLYETHYL GLY 3350 17 GM/DOSE PO ONE (02:17)
[2017-12-17 02:19] LABS: Absolute Lymphocytes (CBC) 2.6 K/uL (0.7-4.9); Absolute Monocytes 2.1 K/uL (0.1-1.3); Absolute Neutrophil 19.9 K/uL (1.8-8.0); Basophils % 0.4 % (0-1.3); Eosinophils % 0.1 % (0-4.4); Hematocrit 38.5 % (39.6-49.0); Lymphocytes % 10.4 % (15.3-44.8); MCH 29.3 pg (27.0-35.0); MCV 88.4 fL (80-100); MPV 8.4 fL (7.6-11.3); Monocytes % 8.7 % (3.3-12.3); RBC Red Blood Cell Count 4.35 M/uL (4.33-5.43)
[2017-12-17 02:23] LABS: BUN Blood Urea Nitrogen 9 mg/dL (6-20); Bicarbonate 28 mEq/L (21-31); Glucose Level 291 mg/dL (65-120); Potassium 3.2 mEq/L (3.6-5.0); Sodium Level 130 mEq/L (135-145)
[2017-12-17] MEDS: INSULIN -REGULAR HUMAN 50 UNIT/0.5 ML ML SQ SCH ×4 (02:28→18:06)
[2017-12-17] MEDS: TAMSULOSIN 0.4 MG SR CAP PO SCH ×2 (02:28→20:30)
[2017-12-17] MEDS: Morphine 2 MG/2 ML SYR IV PRN ×4 (02:35→20:31)
[2017-12-17 02:56] LABS: Blood Morphology Comment NOT SEEN (NOT SEEN); Platelet Estimate ADEQ
[2017-12-17] MEDS: KCL 20 MEQ/100 mL IVPB 20 MEQ/100 ML BAG IV SCH ×2 (04:02→06:55)
[2017-12-17] MEDS ORDERED: NA CHLORIDE 0.9% 500 ML IV ONE (08:31)
--- NOTE | 2017-12-17 08:39 | P.PN ---
Subjective Date of Service: 12/17/17 Primary Care Provider: none Chief Complaint: buttock cellulitis Subjective: Other (Pain to the right buttocks region noted. Patient lying on his left side.) Physical Examination - Vital Signs Temperature: 97.8 F Blood Pressure: 111/56 Pulse: 89 Respirations: 16 Pulse Ox (%): 98 - Physical Exam General: Alert, In no apparent distress, Cooperative, Cachectic HEENT: Atraumatic Neck: Supple Respiratory: Clear to auscultation bilaterally, Normal air movement Cardiovascular: Normal pulses, Regular rate/rhythm Gastrointestinal: Normal bowel sounds, Soft and benign, Non-distended, No tenderness, No masses, No rebound, No guarding Musculoskeletal: Other (Pain to the right buttocks region.) Integumentary: Other (Induration noted to the right buttocks fold to the posterior area. No ulcer noted. No fluctuance noted.) Neurological: Normal speech, Normal strength at 5/5 x4 extr, Normal tone - Studies Laboratory Data (last 24 hrs) 12/16/17 20:15: Creatinine 0.60 L 12/16/17 20:15: WBC 15.2 H, Hgb 13.7, Hct 40.7, Plt Count 206 12/16/17 20:15: Sodium 126 L, Potassium 3.7, BUN 10, Creatinine 0.59 L, Glucose 347 H, Total Bilirubin 1.0, AST 55 H, ALT 35, Alkaline Phosphatase 147 H, Amylase 34, Lipase 21 L Medications List Reviewed: Yes Assessment & Plan - Problems (Diagnosis) (1) Hypokalemia Current Visit: Yes Status: Acute Plan: Will monitor and replace appropriately. Replacement protocol in place. (2) Constipation Current Visit: Yes Status: Chronic Plan: Patient has history of constipation. CT scan shows stool retention. Will provide medication. Patient has been using iron which may exacerbate this. Qualifiers: Constipation type: unspecified constipation type Qualified Code(s): K59.00 - Constipation, unspecified (3) Fatty liver Current Visit: Yes Status: Chronic Plan: Fatty liver noted on CT scan. Chronic disease of liver suspected. Will check hepatitis panel (4) Elevated liver function tests Current Visit: Yes Status: Acute Plan: Will check hepatitis panel. CT scan shows suspicion for chronic liver disease. (5) Urinary retention Onset Date: 12/17/17 Current Visit: Yes Status: Acute Plan: Urinary retention noted upon admission. Patient now with Li catheter. Suspect BPH. Will check PSA. Urology consulted. (6) Cellulitis of right buttock Onset Date: 12/17/17 Current Visit: Yes Status: Acute Plan: Spoke with surgery. Patient be taken to the OR for possible irrigation and debridement. Continue IV antibiotic therapy. IV antibiotic therapy adjusted. Patient now on vancomycin and Levaquin. (7) Anemia Current Visit: No Status: Chronic Plan: Patient has history of iron deficiency anemia. Will monitor closely. Qualifiers: Anemia type: iron deficiency Iron deficiency anemia type: unspecified iron deficiency Qualified Code(s): D50.9 - Iron deficiency anemia, unspecified (8) Hyponatremia Onset Date: 12/17/17 Current Visit: Yes Status: Acute Plan: Likely from dehydration. Will continue with IV fluids. (9) GERD (gastroesophageal reflux disease) Current Visit: No Status: Suspected Plan: Will provide PPI. Qualifiers: Esophagitis presence: esophagitis presence not specified Qualified Code(s) : K21.9 - Gastro-esophageal reflux disease without esophagitis (10) Diabetes mellitus Onset Date: 08/08/16 Current Visit: No Status: Chronic Plan: Patient with history of diabetes. Will provide insulin sliding scale. Patient previously taking only Glucophage. Qualifiers: Diabetes mellitus type: type 2 Diabetes mellitus terminal worker insulin use: unspecified usp insulin use status Diabetes mellitus complication status : with skin complications Diabetes mellitus complication detail: with other skin complication Qualified Code(s): E11.628 - Type 2 diabetes mellitus with other skin complications (11) Tobacco abuse Onset Date: 08/08/16 Current Visit: No Status: Chronic Plan: Will address lifestyle modification education. Tobacco cessation education will be provided (12) BPH (benign prostatic hyperplasia) Current Visit: Yes Status: Suspected Plan: Will provide medication. Urology consulted. Qualifiers: Lower urinary tract symptom presence: symptoms present Lower urinary tract symptom detail: urinary retention Qualified Code(s): N40.1 - Benign prostatic hyperplasia with lower urinary tract symptoms; R33.8 - Other retention of urine Discharge Plan: Home Plan to discharge in: Greater than 2 days Time Spent Managing Pts Care (In Minutes): 55
[2017-12-17] MEDS ORDERED: GLYCOPYRROLATE 0.2 MG/ML SYR ONE (08:40)
[2017-12-17] MEDS ORDERED: FENTANYL CITR 100 MCG/2 ML ONE (08:40)
[2017-12-17] MEDS ORDERED: PROPOFOL 200 MG/20 ML VIAL IV ONE (08:40)
[2017-12-17] MEDS ORDERED: TRAMADOL HCL 50 MG TAB PO PRN (08:41)
[2017-12-17] MEDS ORDERED: ONDANSETRON HCL 40 MG/20 ML VIAL ONE (08:43)
[2017-12-17] MEDS ORDERED: Phenylephrine HCl 10 MG/ML 1 ML VIAL ONE (08:43)
[2017-12-17] MEDS ORDERED: ROCURONIUM 50 MG/5 ML VIAL IV ONE (08:43)
[2017-12-17] MEDS ORDERED: BUPIVACAINE 0.5% Inj,MDV 50 mL VIAL ONE (08:47)
[2017-12-17] MEDS ORDERED: NA CHLORIDE 0.9% 1,000 ML ONE (08:53)
[2017-12-17] MEDS: Levofloxacin500mg IV 500 MG/100 ML BAG IV SCH (08:59)
[2017-12-17] MEDS: NA CHLORIDE 0.9% 1,000 ML IV SCH ×3 (09:00→23:37)
[2017-12-17] MEDS ORDERED: AZTREONAM 1 GM/VIAL IV SCH (09:00)
[2017-12-17] MEDS ORDERED: NEOSTIGMINE 1 MG/ML -5 ML SYRINGE ONE (09:20)
--- NOTE | 2017-12-17 09:45 | P.OP ---
Preoperative diagnosis: Abscess and cellulitis Buttock Postoperative diagnosis: same Primary procedure: I and D and Debridement Buttock Abscess Anesthesia: gen Estimated blood loss: min Specimen: pus, necrotic tissuse Findings: as above Complications: None Transferred to: Recovery Room Condition: Good
[2017-12-17] MEDS: MEPERIDINE HCL 25 MG/0.5 ML ONE ×2 (10:07→10:09)
[2017-12-17] MEDS ORDERED: MEPERIDINE HCL 25 MG/0.5 ML ONE (10:15)
--- NOTE | 2017-12-17 11:24 | OP ---
Date of Procedure: 12/17/2017 Surgeon: Noah Amor MD Preoperative Diagnosis: Abscess and cellulitis, buttocks. Postoperative Diagnosis: Abscess and cellulitis, buttocks. Procedure: Incision, drainage, and debridement of buttock abscess. Estimated Blood Loss: Minimal. Specimen: Pus and necrotic tissue. Finding: As above. Anesthesia: General. Complications: None. Disposition: The patient tolerated the procedure in stable condition and taken to the Recovery in go od general condition. Procedure In Detail: The patient was brought to the OR and placed in the supine position. General a nesthesia begun. The patient placed in the prone position, prepped and draped in the usual sterile f ashion. Marcaine 0.5% was infiltrated locally. A 15-blade was used to make approximately a 6 cm inc ision. Subcutaneous tissue divided. Pus under pressure evacuated. Loculation broken up. Necrotic tissue debrided. Wound irrigated. Bleeding controlled with cautery and then wet-to-dry normal salin e dressing change applied. The patient tolerated the procedure in stable condition and taken to Recovery in good general condition. SIGIFREDO/MODL Voice ID: [id number] Report ID: [id number]
[2017-12-17] MEDS: VANCOMYCIN 1 GM in NA CHLORIDE 0.9% 250 ML IVPB SCH ×2 (13:10→23:36)
[2017-12-17] MEDS: DOCUSATE NA 100 MG CAP PO SCH (13:10)
[2017-12-17] MEDS: HYDROCODONE/APAP 7.5/325 MG TAB PO PRN (13:11)
--- NOTE | 2017-12-17 13:50 | PREOPCON ---
Date of Consultation: 12/17/2017 Reason For Consultation: Blood infection. History Of Present Illness: The patient is a 66-year-old gentleman, whom I [facility] with a couple of day history of buttock pain. He had gone to the ER and was discharged from [facility], followed up in the [facility]; however, on my evaluation last , he had cellulit is in his buttock including the gluteal crease of the upper part. He was started on Cipro and doxycy farfan, told that if he does get better on oral antibiotics, he is to come to the ER and admitted for IV antibiotics and then eventual I and D. He did and his pain got worse. He started having fever, s o yesterday he came to the emergency room and was admitted for IV antibiotics. He has leukocytosis. His pain has increased and therefore, I was consulted. He is awake, alert, complaining of pain and low grade fever. No discharge. Review of Systems: Otherwise unremarkable. Past Medical History: Significant for diabetes type 2, diabetic neuropathy, history of tobacco and a lcohol use. Past Surgical History: Left BKA. Allergies: INCLUDE PENICILLIN. Social History: He used to smoke, does not smoke anymore and does not drink alcohol currently. Family History: Significant for heart disease, hypertension, diabetes, stroke, unknown type of cance r. Physical Examination: Vital Signs: Stable. He is afebrile. General: He is awake, alert, and oriented x3. Head and Neck: Cranial nerves 2 through 12 grossly within normal limits. No neck masses. No JVD. Throat clear. Neck is supple. Chest: Clear. Heart: S1, S2. Abdomen: Soft. Extremities: Neurovascularly intact. Diminished circulation. Neuro: Nonfocal. On the buttock region, there is a large area of induration with central fluctuance in the middle of the crease. Most of the infection is on the right side of the buttock and this is approximately 10 x 20 cm. There is no discharge, red, warm, and tender and centrally fluctuant. Laboratory Data: White count yesterday was 15.2, today is 24.7 with a left shift. Lactic acid on ad mission was 16.3. His potassium is 3.2, glucose is 291. CT of the abdomen and pelvis reviewed, show s a lot of inflammatory edematous tissue. Assessment: Abscess and cellulitis, buttocks. Recommendations: Continue IV antibiotics. N.p.o. To the OR for incision, drainage, and debridement . The patient understands the risks, benefits, and alternatives and agrees to procedure. /MODL Voice ID: [id number] Report ID: [id number]
--- NOTE | 2017-12-17 15:06 | CON ---
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 He was admitted yesterday, found to be in urinary retentio n, bladder drained 800 cc. His white count last night was 24,000. He underwent incision, drainage, and debridement of the abscess this morning by Dr. Amor, General Surgery. His wound was packed with wet-to-dry currently. His Li catheter is draining well. He did not get complaints of lower urin kelechi symptomatology prior to this event. This urinary retention may be all related to his illness. Monae morgan says he has no voiding issues at home in general. Allergies: PENICILLIN CAUSES A RASH. Home Medications: Aspirin, iron, metformin, omeprazole. Past Medical History: Diabetes, history of tobacco abuse, history of alcohol abuse, diabetic neuropa thy, left knee surgery, left BKA. Psychosocial: He is , has 3 children. Disabled. Family History: Father has heart disease, hypertension, diabetes, and cancer. Mother has diabetes a nd stroke. Social History: Former smoker. No alcohol use. No drug use. No caffeine use. Resides at home. Review of Systems: A 10-point review of systems is unremarkable. Physical Examination: General: Alert, oriented. HEENT: Atraumatic, normocephalic. Neck: Supple. Respiratory: Clear. Cardiovascular: S1, S2. Gastrointestinal: Normal bowel sounds. Musculoskeletal: Nontender. He has a dressing on the back. Laboratory Studies: White count was 24.7 this morning, H and H 12.8 and 38.5, platelet count 267. H is chemistries were pending. The chemistry yesterday showed sodium 138, potassium 3.2, chloride 95, carbon dioxide 28, BUN 9, creatinine 0.61, GFR greater than 90, glucose 291. Hemoglobin A1c is pendi ng. Urine shows +5 to 10 wbc's, 5-10 squamous epithelial cells, less than 20 bacteria. Assessment: Urinary retention with buttock abscess. Catheter is in place, draining well. UA appear s to be negative at this point. Await final urine culture. Continue management. Continue IV antibi otics. Continue wound care as per General Surgery. We will continue to give him Flomax for now or t amsulosin and voiding trial prior to going home. JENN/MELY Voice ID: [id number] Report ID: [id number]
[2017-12-17] MEDS ORDERED: VANCOMYCIN 0.75 GM in NA CHLORIDE 0.9% 250 ML IVPB SCH (16:00)
[2017-12-17] MEDS: ENOXAPARIN 40 MG/0.4 ML SQ SCH (16:19)
[2017-12-17 18:28] LABS: A1c Component 1.45 mg/dL; Hemoglobin A1c 12.3 % (4-6.0)
[2017-12-18] MEDS: NA CHLORIDE 0.9% 1,000 ML IV SCH ×3 (01:00→17:32)
[2017-12-18 04:18] LABS: Absolute Lymphocytes (CBC) 1.8 K/uL (0.7-4.9); Absolute Monocytes 1.1 K/uL (0.1-1.3); Absolute Neutrophil 11.8 K/uL (1.8-8.0); Basophils % 0.3 % (0-1.3); Eosinophils % 0.9 % (0-4.4); Hematocrit 31.7 % (39.6-49.0); Lymphocytes % 11.9 % (15.3-44.8); MCH 29.4 pg (27.0-35.0); MCV 88.9 fL (80-100); MPV 8.1 fL (7.6-11.3); Monocytes % 7.3 % (3.3-12.3); RBC Red Blood Cell Count 3.57 M/uL (4.33-5.43)
[2017-12-18 04:55] LABS: BUN Blood Urea Nitrogen 9 mg/dL (6-20); Bicarbonate 26 mEq/L (21-31); Glucose Level 182 mg/dL (65-120); Magnesium 1.5 mg/dL (1.8-2.5); Potassium 3.5 mEq/L (3.6-5.0); Sodium Level 134 mEq/L (135-145)
[2017-12-18] MEDS: PANTOPRAZOLE 40MG TABLET PO SCH (05:45)
[2017-12-18] MEDS ORDERED: Magnesium Sulfate 2gm IVPB 2 G/50 ML BAG IV ONE (06:00)
[2017-12-18] MEDS ORDERED: POTASSIUM 25 MEQ EFFERV TAB PO ONE (06:00)
[2017-12-18] MEDS: INSULIN -REGULAR HUMAN 50 UNIT/0.5 ML ML SQ SCH ×5 (07:30→20:50)
[2017-12-18] MEDS: Morphine 2 MG/2 ML SYR IV PRN ×3 (08:30→20:09)
[2017-12-18] MEDS: DOCUSATE NA 100 MG CAP PO SCH (08:30)
[2017-12-18] MEDS: METFORMIN HCL 500 MG TAB PO SCH ×2 (08:30→17:32)
[2017-12-18] MEDS: Levofloxacin500mg IV 500 MG/100 ML BAG IV SCH (08:30)
--- NOTE | 2017-12-18 08:44 | P.PN ---
Subjective Date of Service: 12/18/17 Primary Care Provider: none Chief Complaint: buttock cellulitis Subjective: Improving Physical Examination - Vital Signs Temperature: 98.9 F Blood Pressure: 153/76 Pulse: 98 Respirations: 16 Pulse Ox (%): 98 - Physical Exam General: Alert, In no apparent distress, Oriented x3, Cooperative HEENT: Atraumatic Neck: Supple Respiratory: Clear to auscultation bilaterally, Normal air movement Cardiovascular: Normal pulses, Regular rate/rhythm Gastrointestinal: Normal bowel sounds, Soft and benign, Non-distended, No tenderness, No masses, No rebound, No guarding Musculoskeletal: No tenderness, No warmth Integumentary: Other (Post upper changes noted to the buttocks region. No induration noted compared to yesterday to the right buttocks area. Significant improving noted.) Neurological: Normal speech, Normal strength at 5/5 x4 extr, Normal tone, Normal affect Urinary: Li catheter - Studies Medications List Reviewed: Yes Assessment & Plan - Problems (Diagnosis) (1) Hypokalemia Current Visit: Yes Status: Acute Plan: Will monitor and replace appropriately. Replacement protocol in place. (2) Constipation Current Visit: Yes Status: Chronic Plan: Will continue with medication. Monitor this closely. Patient has history of constipation. CT scan shows stool retention. Qualifiers: Constipation type: unspecified constipation type Qualified Code(s): K59.00 - Constipation, unspecified (3) Fatty liver Current Visit: Yes Status: Chronic Plan: Fatty liver noted on CT scan. Chronic disease of liver suspected. Await hepatitis panel. This will need to be further evaluated by GI as an outpatient. (4) Elevated liver function tests Current Visit: Yes Status: Acute Plan: Hepatitis panel pending. CT scan shows suspicion for chronic liver disease. This will need to be further addressed by GI as an outpatient. (5) Urinary retention Onset Date: 12/17/17 Current Visit: Yes Status: Acute Plan: Urinary retention noted upon admission. Patient now with Li catheter. Patient on medication for BPH. Will discuss with urology. Will give trial off Li catheter likely today or tomorrow. (6) Cellulitis of right buttock Onset Date: 12/17/17 Current Visit: Yes Status: Acute Plan: Abscess and cellulitis noted to the right buttocks. Patient was taken to the OR yesterday for surgery. Significant improvement in induration noted today. Will continue IV antibiotic therapy. Cultures obtained. Continue wound care. Will discuss further with surgery. Anticipate discharge once cultures have been identified. (7) Anemia Current Visit: No Status: Chronic Plan: Patient has history of iron deficiency anemia. Will monitor closely. Qualifiers: Anemia type: iron deficiency Iron deficiency anemia type: unspecified iron deficiency Qualified Code(s): D50.9 - Iron deficiency anemia, unspecified (8) Hyponatremia Onset Date: 12/17/17 Current Visit: Yes Status: Acute Plan: Likely from dehydration. Will continue with IV fluids. (9) GERD (gastroesophageal reflux disease) Current Visit: No Status: Suspected Plan: Will provide PPI. Qualifiers: Esophagitis presence: esophagitis presence not specified Qualified Code(s) : K21.9 - Gastro-esophageal reflux disease without esophagitis (10) Diabetes mellitus Onset Date: 08/08/16 Current Visit: No Status: Chronic Plan: Patient with history of diabetes. Will restart his medication of metformin. Will continue sliding scale and monitor closely. Patient may require basal insulin if blood sugars are not well controlled. Qualifiers: Diabetes mellitus type: type 2 Diabetes mellitus custodial insulin use: unspecified custodial insulin use status Diabetes mellitus complication status : with skin complications Diabetes mellitus complication detail: with other skin complication Qualified Code(s): E11.628 - Type 2 diabetes mellitus with other skin complications (11) Tobacco abuse Onset Date: 08/08/16 Current Visit: No Status: Chronic Plan: Will address lifestyle modification education. Tobacco cessation education will be provided. Patient may require nicotine patch as needed. (12) BPH (benign prostatic hyperplasia) Current Visit: Yes Status: Suspected Plan: Continue medication. PSA within normal range. Will discuss with urology. Qualifiers: Lower urinary tract symptom presence: symptoms present Lower urinary tract symptom detail: urinary retention Qualified Code(s): N40.1 - Benign prostatic hyperplasia with lower urinary tract symptoms; R33.8 - Other retention of urine Discharge Plan: Home Plan to discharge in: 24 Hours Time Spent Managing Pts Care (In Minutes): 55
[2017-12-18] MEDS: VANCOMYCIN 1 GM in NA CHLORIDE 0.9% 250 ML IVPB SCH ×2 (12:14→22:54)
[2017-12-18] MEDS: HYDROCODONE/APAP 7.5/325 MG TAB PO PRN ×2 (12:15→21:28)
--- NOTE | 2017-12-18 16:28 | PN ---
Date of Progress Note: 12/18/2017 Subjective: The patient is awake, alert. Feels better. Objective: Vital Signs: Stable. Afebrile. Extremities: Dressing is clean, dry, and intact. Laboratory Data: Culture is pending. Gram stain shows gram-positive cocci in chains and clusters. Assessment: Status post I and D and debridement, buttock abscess. Recommendations: Continue IV antibiotics and wound care is ordered. Await sensitivities prior to di terrell. SIGIFREDO/MODL Voice ID: [id number] Report ID: [id number]
[2017-12-18] MEDS ORDERED: MAGNESIUM SULFATE 1 gm IVPB 1 GM/100 ML BAG IV ONE (17:00)
[2017-12-18] MEDS: ENOXAPARIN 40 MG/0.4 ML SQ SCH (17:32)
[2017-12-18] MEDS: METOPROLOL TAR 25 MG TAB PO SCH (17:32)
[2017-12-18] MEDS: TAMSULOSIN 0.4 MG SR CAP PO SCH (20:08)
[2017-12-19] MEDS: NA CHLORIDE 0.9% 1,000 ML IV SCH ×3 (01:00→08:40)
[2017-12-19] MEDS: Morphine 2 MG/2 ML SYR IV PRN ×5 (01:46→22:25)
[2017-12-19] MEDS: HYDROCODONE/APAP 7.5/325 MG TAB PO PRN ×2 (03:44→11:59)
[2017-12-19] MEDS: METOPROLOL TAR 25 MG TAB PO SCH ×2 (05:33→17:12)
[2017-12-19] MEDS: PANTOPRAZOLE 40MG TABLET PO SCH (05:33)
[2017-12-19 06:32] LABS: Absolute Lymphocytes (CBC) 1.7 K/uL (0.7-4.9); Absolute Monocytes 0.9 K/uL (0.1-1.3); Absolute Neutrophil 8.5 K/uL (1.8-8.0); Basophils % 0.4 % (0-1.3); Lymphocytes % 15.1 % (15.3-44.8); MCH 30.4 pg (27.0-35.0); MCV 88.1 fL (80-100); MPV 7.9 fL (7.6-11.3); RBC Red Blood Cell Count 3.41 M/uL (4.33-5.43)
[2017-12-19 06:44] LABS: BUN Blood Urea Nitrogen 7 mg/dL (6-20); Bicarbonate 28 mEq/L (21-31); Glucose Level 193 mg/dL (65-120); Magnesium 1.8 mg/dL (1.8-2.5); Potassium 3.9 mEq/L (3.6-5.0); Sodium Level 133 mEq/L (135-145)
[2017-12-19] MEDS: INSULIN -REGULAR HUMAN 50 UNIT/0.5 ML ML SQ SCH ×4 (07:30→20:58)
[2017-12-19] MEDS: DOCUSATE NA 100 MG CAP PO SCH (08:33)
[2017-12-19] MEDS: METFORMIN HCL 500 MG TAB PO SCH ×2 (08:33→17:11)
[2017-12-19] MEDS: Levofloxacin500mg IV 500 MG/100 ML BAG IV SCH (08:34)
[2017-12-19] MEDS ORDERED: POTASSIUM 25 MEQ EFFERV TAB PO ONE (09:00)
[2017-12-19] MEDS ORDERED: MAGNESIUM SULFATE 1 gm IVPB 1 GM/100 ML BAG IV ONE (10:00)
[2017-12-19] MEDS: Meropenem 500 MG in NA CHLORIDE 0.9% 100 ML IV SCH ×2 (11:46→17:10)
[2017-12-19 13:14] LABS: HBsAG Nonreactive (Nonreactive); Hepatitis A IgM Antibody Nonreactive
[2017-12-19] MEDS: VANCOMYCIN 1 GM in NA CHLORIDE 0.9% 250 ML IVPB SCH (13:44)
--- NOTE | 2017-12-19 16:31 | PN ---
Date of Progress Note: 12/19/2017 Subjective: The patient is awake, alert. No complaint. Objective: Vital Signs: Stable. Afebrile. Extremities: His dressing is clean, dry, and intact. Laboratory Data: Reviewed. Cultures are growing out an E coli, but following sensitivity is reviewe d and they are sensitive to Augmentin; however, the patient is allergic to penicillins. Therefore, I will discuss the case with Dr. Saleh regarding which antibiotics to send the patient home on. Assessment: Status post I and D, buttock abscess. Recommendations: Continue IV antibiotics. The patient needs to be on meropenem. Currently, he is o n meropenem. Wound care is ordered. Follow up in the [facility] upon discharge. SIGIFREDO/MODL Voice ID: [id number] Report ID: [id number]
[2017-12-19] MEDS ORDERED: Meropenem 500 MG VIAL IV SCH (17:00)
[2017-12-19] MEDS: ENOXAPARIN 40 MG/0.4 ML SQ SCH (17:10)
--- NOTE | 2017-12-19 17:41 | PN ---
Date of Progress Note: 12/19/2017 Subjective: The patient is seen and examined. Chart reviewed and case discussed with RN. The patient had I and D of the right buttock abscess yesterday, doing well. Denies any pain. Family at the bedside. Treatment plan explained. All questions answered. The patient will need PICC line and long-term IV antibiotics for a minimum of 2 weeks. Review of Systems: Negative except as above. Medications: Reviewed. Physical Examination: Vital Signs: Temperature 97.8, heart rate 72, blood pressure 122/62, respirations 16, O2 100% on room air. General: Awake, alert, oriented x3, not in acute distress. Elderly male, appears older than stated age, somewhat ill-appearing, frail. BMI 21. CV: S1, S2. No murmurs. Regular rate and rhythm. Peripheral pulses are weak. Respiratory: Clear to auscultation bilaterally. No wheezing. Gastrointestinal: Abdomen is soft, nontender, and nondistended. Positive bowel sounds. Extremities: No clubbing, cyanosis, or edema. Neurologic: Nonfocal. Musculoskeletal: The patient has left BKA. Skin: Incision site on the right buttock clean, dry, and intact. Laboratory Data: Sodium 133, potassium 3.9, chloride 102, CO2 28, BUN 7, creatinine 0.57, glucose 193, calcium 8, magnesium 1.8. Hemoglobin A1c 12.3%. WBC 11.3, H and H 10.4 and 30, platelets 214, neutrophils 75%. Hepatitis C antibody reactive. Blood cultures, no growth to date. Tissue culture and wound culture growing E. coli, ESBL producing. Assessment And Plan: A 66-year-old male with: 1. Cellulitis of the right buttock status post incision and drainage. We will continue IV antibiotics. Wound cultures growing ESBL Escherichia coli. We will switch antibiotics to meropenem. The patient will need PICC line and 2 weeks of IV antibiotics. 2. Hypokalemia, replace and monitor. 3. Constipation. Continue with stool softeners. 4. Fatty liver disease. 5. Hepatitis C. The patient has had previous diagnosis. We will need to follow up as an outpatient by GI. 6. Elevated liver function enzymes secondary to fatty liver and hepatitis C. 7. Acute urinary retention, resolved. Continue Li catheter for now. Appreciate Dr. Gutierrez's input. The patient will need voiding trial prior to discharge. 8. Iron deficiency anemia. We will continue with monitoring H and H, transfuse as needed. 9. Hyponatremia related to chronic liver disease and dehydration, improved. We will continue to monitor. 10. Gastroesophageal reflux disease without esophagitis. Continue PPI. 11. Diabetes mellitus type 2, uncontrolled with neuropathy. Hemoglobin A1c is 12.3%. Continue sliding scale insulin and adjust insulin dose as necessary. Diabetic education. 12. Nicotine dependent with cigarette smoking, counseled. 13. Benign prostatic hypertrophy. Continue Flomax. PSA is normal. 14. Gastrointestinal and deep venous thrombosis prophylaxis addressed. Plan: Significant for long-term IV antibiotics and wound care. /MELY Voice ID: [id number] Report ID: [id number] MTDD
--- NOTE | 2017-12-19 19:56 | RAD REPORT ---
EXAM DESCRIPTION: RAD - Chest Single View - 12/19/2017 7:12 pm CLINICAL HISTORY: PICC line placement COMPARISON: September 26 FINDINGS: Portable chest was obtained following placement of a right upper extremity PICC line. The catheter tip is in the right atrium. Retracting the PICC line [address] the tip in the mid this distal SVC.
[2017-12-19] MEDS ORDERED: INSULIN DETEMIR 100 UNIT/1 ML INSULIN SQ SCH (21:00)
[2017-12-19] MEDS: TAMSULOSIN 0.4 MG SR CAP PO SCH (21:13)
[2017-12-19] MEDS ORDERED: Magnesium Sulfate 2gm IVPB 2 G/50 ML BAG IV ONE (21:30)
[2017-12-19 22:45] VITALS: O2SAT 98
[2017-12-20] MEDS: VANCOMYCIN 1 GM in NA CHLORIDE 0.9% 250 ML IVPB SCH ×2 (00:16→11:00)
[2017-12-20] MEDS: HYDROCODONE/APAP 7.5/325 MG TAB PO PRN ×2 (00:17→08:59)
[2017-12-20] MEDS: Meropenem 500 MG in NA CHLORIDE 0.9% 100 ML IV SCH ×3 (00:22→16:45)
[2017-12-20 01:07] VITALS: BMI 25.4
[2017-12-20 05:22] LABS: Absolute Lymphocytes (CBC) 1.7 K/uL (0.7-4.9); Absolute Neutrophil 9.4 K/uL (1.8-8.0); Basophils % 0.5 % (0-1.3); Eosinophils % 0.7 % (0-4.4); Hematocrit 32.6 % (39.6-49.0); MCH 30.1 pg (27.0-35.0); MCV 88.9 fL (80-100); MPV 7.8 fL (7.6-11.3); Monocytes % 7.9 % (3.3-12.3); RBC Red Blood Cell Count 3.67 M/uL (4.33-5.43)
[2017-12-20] MEDS ORDERED: MAGNESIUM SULFATE 1 gm IVPB 1 GM/100 ML BAG IV ONE (05:27)
[2017-12-20] MEDS ORDERED: POTASSIUM 25 MEQ EFFERV TAB PO ONE ×2 (05:28→05:43)
[2017-12-20 05:41] LABS: BUN Blood Urea Nitrogen 8 mg/dL (6-20); Bicarbonate 29 mEq/L (21-31); Glucose Level 135 mg/dL (65-120); Magnesium 1.9 mg/dL (1.8-2.5); Potassium 3.8 mEq/L (3.6-5.0); Sodium Level 134 mEq/L (135-145)
[2017-12-20] MEDS: METOPROLOL TAR 25 MG TAB PO SCH (06:00)
[2017-12-20] MEDS: PANTOPRAZOLE 40MG TABLET PO SCH (06:16)
[2017-12-20] MEDS: INSULIN -REGULAR HUMAN 50 UNIT/0.5 ML ML SQ SCH ×3 (07:30→16:30)
[2017-12-20 08:24] LABS: Hepatitis C Virus RNA (PCR)log 5.63 log IU/mL
[2017-12-20] MEDS: Morphine 2 MG/2 ML SYR IV PRN ×2 (08:57→13:14)
[2017-12-20] MEDS: METFORMIN HCL 500 MG TAB PO SCH ×2 (08:59→16:45)
[2017-12-20] MEDS: DOCUSATE NA 100 MG CAP PO SCH (08:59)
--- NOTE | 2017-12-20 13:49 | PN ---
Date of Progress Note: 12/20/2017 Subjective: The patient is awake alert. No complaint. Objective: Vital Signs: Stable. Afebrile. Extremities: His wound has a moderate amount of fibrin in it, but there is no surrounding erythema o r warmth anymore. There is slight induration and no fluctuance. Laboratory Data: White count is still little up. Cultures were reviewed with Dr. Cisneros yesterday. Assessment: Status post I and D of buttock abscess. Recommendations: Continue IV antibiotics and wound care to collagenase, wet-to-dry daily. Once disc harge planning is arranged, I can follow him up as an outpatient. /MODL Voice ID: [id number] Report ID: [id number]
[2017-12-20] MEDS: ENOXAPARIN 40 MG/0.4 ML SQ SCH (16:46)
[2017-12-20 17:39] VITALS: BP 146/81; TEMP 98.2
--- NOTE | 2017-12-21 02:05 | DS ---
Date of Discharge: 12/20/2017 Telepathist: Noah Amor MD Procedure: On 12/17/2017, I and D of buttock abscess with pathology showing compatible with abscess. Admitting Diagnoses: 1.Urinary tract infection. 2.Urinary retention. 3.Cellulitis of right buttock. 4.Diabetes mellitus type 2 without long-term use of insulin with hyperglycemia. 5.Hyponatremia. Discharge Diagnoses: 1.Cellulitis of the right buttock, status post I and D with wound cultures growing ESBL Escherichia coli. 2.Hypokalemia, replaced. 3.Fatty liver disease. 4.Hepatitis C. Needs to follow up with GI for further treatment and evaluation. 5.Elevated liver enzymes secondary to above. 6.Acute urinary retention, resolved. The patient will need a voiding trial prior to discontinuing F oley catheter. 7.Iron deficiency anemia. H and H are stable. Likely secondary to anemia of chronic disease. 8.Hyponatremia secondary to chronic liver disease and dehydration, improved. 9.Gastroesophageal reflux disease without esophagitis. Continue PPI. 10.Diabetes mellitus type 2, uncontrolled with neuropathy. Hemoglobin A1c 12.3%. Insulin dose adju sted. 11.Nicotine dependence with cigarette smoking, counseled. 12.Benign prostatic hypertrophy. Continue Flomax. 13.Left [id number]. Hospital Course: The patient is a 67-year-old diabetic with a history of left BKA due to osteomyelit is and hypertension, who came in with buttock cellulitis. The patient was started on IV antibiotics. He was taken to the OR by Dr. Amor, who did the incision and drainage. The patient did well posto peratively. His white blood cell count improved. His wound culture grew out ESBL E. coli and the pa stacy's antibiotics were adjusted. The patient's blood cultures remained negative. The patient's ur ine culture showed mixed simi. The patient was counseled on his diabetes and his smoking. He under stands that he needs to control his blood sugars more tightly in order to help heal his wound and pre vent further infection from warming. Family was at the bedside. I explained them the treatment plan including IV meropenem for at least 2 weeks along with wound care with collagenase and wet-to-dry dr cesar. They voiced understanding. The patient was also seen by Dr. Gutierrez by Urology due to urinary retention. The patient was started on Flomax and had catheter placed. The patient will need a void ing trial prior to discontinuing the Li catheter. The patient otherwise did well. PICC line was placed in order to facilitate long-term IV antibiotic use. The patient was then accepted to half-way facility for wound care and long-term IV antibiotics. The patient was cleared for discharge from [employer] identity management consultant's standpoint. It should be noted that the patient's hemoglobin A1c was specifically elevated at 4.3. His insulin dose was adjusted and long-acting insulin was added. His electrolytes were corrected including magnesium and potassium. His hep panel did come back reactive for hepatitis C with high viral load of 425,000. The patient will need to follow up with GI for further evaluatio n and treatment. Medications: As per medication reconciliation list. Followup: Follow up with primary care physician in 1 week. Follow up with surgeon, Dr. Amor, in 7 to 10 days for wound check, establish care with GI or station chief for treatment of hepatitis C. Ret urn to ER for worsening condition. The patient to have repeat wound cultures after antibiotics compl eted, weekly CBC, CMP, CRP and ESR. Diet: Diabetic. Activity: Fall precautions. The patient has left BKA. The patient understands the importance of redmond ving hepatitis C treated, which left untreated can cause liver cirrhosis and cancer and even . Total time spent discharging the patient was 36 minutes. Physical Examination: General: Awake, alert, oriented, no acute distress. CV: S1, S2. No murmurs. Respiratory: Moving air well bilaterally. Abdomen: Soft, nontender, nondistended. Positive bowel sounds. Extremities: No clubbing, cyanosis, edema. Musculoskeletal: Left BKA. Neurologic: Nonfocal. Skin: Right buttock abscesses bandaged. SA/MODL Voice ID: [id number] Report ID: [id number]
[2017-12-21] MEDS ORDERED: COLLAGENASE 30 GM OINTMENT TOP SCH (11:48)
== END 2017-12-20 17:40 | DRG 603 ==
LOC: ER 18:56 → ERHOLD 12-17 → 4TH 12-17 00:52
PROVIDERS: ADMIT Internal Medicine; ATTEND Internal Medicine
PROC: 0J993ZZ Drainage of Buttock Subcutaneous Tissue and Fascia, Percutaneous Approach (ICD-10-PCS; principal; 2017-12-17 09:30)
PROC: 02HV33Z Insertion of Infusion Device into Superior Vena Cava, Percutaneous Approach (ICD-10-PCS; 2017-12-19)
DX: L03.317 Cellulitis of buttock (principal); E87.1 Hypo-osmolality and hyponatremia; I47.1 Supraventricular tachycardia; B96.20 Unspecified Escherichia coli [E. coli] as the cause of diseases classified elsewhere; Z16.12 Extended spectrum beta lactamase (ESBL) resistance; E87.6 Hypokalemia; K76.0 Fatty (change of) liver, not elsewhere classified; B19.20 Unspecified viral hepatitis C without hepatic coma; D50.9 Iron deficiency anemia, unspecified; E86.0 Dehydration; K21.9 Gastro-esophageal reflux disease without esophagitis; E11.65 Type 2 diabetes mellitus with hyperglycemia; E11.40 Type 2 diabetes mellitus with diabetic neuropathy, unspecified; F17.210 Nicotine dependence, cigarettes, uncomplicated; N40.1 Benign prostatic hyperplasia with lower urinary tract symptoms; R33.8 Other retention of urine; Z89.512 Acquired absence of left leg below knee; K59.00 Constipation, unspecified; L02.31 Cutaneous abscess of buttock; Z88.0 Allergy status to penicillin
CPT/HCPCS: 36415; 51702; 71045; 74177; 80048; 80074; 80076; 80202; 81003; 81015; 82150; 82962; 83036; 83605; 83690; 83735; 84132; 84145; 85025; 87040; 87070; 87075; 87077; 87086; 87088; 87176; 87186; 87205; 87522; 88304; 96361; 96365; 97163; 99285; G0103; J1650; J2175; J2270; J2370; J2405; J2710; J3010; J3370; J3475; J3590; J7030; Q9967

== ENCOUNTER 2018-01-22 16:43 | Emergency (ER) | payer OTHER ==
[2018-01-22 17:58] LABS: Absolute Lymphocytes (CBC) 1.2 K/uL (0.7-4.9); Absolute Monocytes 0.6 K/uL (0.1-1.3); Absolute Neutrophil 5.3 K/uL (1.8-8.0); Basophils % 0.3 % (0-1.3); Eosinophils % 1.5 % (0-4.4); Hematocrit 36.3 % (39.6-49.0); Lymphocytes % 16.4 % (15.3-44.8); MCV 89.2 fL (80-100); RBC Red Blood Cell Count 4.06 M/uL (4.33-5.43)
[2018-01-22 18:14] LABS: Albumin 2.9 g/dL (3.4-5.0); Bilirubin Direct 0.4 mg/dL (0-0.2); Bilirubin Total 0.8 mg/dL (0.2-1.0); Protein, Total 8.5 g/dL (6.4-8.2)
[2018-01-22 18:26] LABS: Urine Blood NEGATIVE (NEG); Urine Glucose NEGATIVE (NEG); Urine Protein 1+ (NEG); Urine Specific Gravity 1.025 (1.005-1.030)
--- NOTE | 2018-01-22 18:39 | EDPHYS ---
Physician Documentation [facility] Name: Amaury Matamoros Age: 67 yrs Sex: Male : 1950 Arrival Date: 01/22/2018 Time: 16:46 Bed 25 Private MD: None, None ED Physician Jose Powell HPI: 01/22 18:20 This 67 yrs old Male presents to ER via Wheelchair with complaints of High jr8 Blood Sugar. 18:20 Onset: The symptoms/episode began/occurred acutely, today. Associated signs and jr8 symptoms: Pertinent positives: vomiting. It is unknown whether or not the patient has had similar symptoms in the past. The patient has not recently seen a physician. Patient stated that he had n/v today. Home Health checked blood sugar and noted that it was in the 300s. Sent him here to insure he was ok . 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 - Social history:: Smoking status: Patient/guardian denies using tobacco. - Ebola Screening: : Patient negative for fever greater than or equal to 101.5 degrees Fahrenheit, and additional compatible Ebola Virus Disease symptoms Patient denies exposure to infectious person Patient denies travel to an Ebola-affected area in the 21 days before illness onset No symptoms or risks identified at this time. ROS: 18:20 Eyes: Negative for injury, pain, redness, and discharge, ENT: Negative for injury, jr8 pain, and discharge, Neck: Negative for injury, pain, and swelling, Cardiovascular: Negative for chest pain, palpitations, and edema, Respiratory: Negative for shortness of breath, cough, wheezing, and pleuritic chest pain, Back: Negative for injury and pain, MS/Extremity: Negative for injury and deformity, Skin: Negative for injury, rash, and discoloration, Neuro: Negative for headache, weakness, numbness, tingling, and seizure. 18:20 Abdomen/GI: Positive for nausea and vomiting, Negative for abdominal pain, diarrhea, constipation, abdominal cramps, abdominal distension, anorexia, dysphagia, hematemesis, black/tarry stool, rectal pain, rectal bleeding, bowel incontinence, flatulence. Exam: 18:20 Eyes: Pupils equal round and reactive to light, extra-ocular motions intact. Lids and jr8 lashes normal. Conjunctiva and sclera are non-icteric and not injected. Cornea within normal limits. Periorbital areas with no swelling, redness, or edema. ENT: Nares patent. No nasal discharge, no septal abnormalities noted. Tympanic membranes are normal and external auditory canals are clear. Oropharynx with no redness, swelling, or masses, exudates, or evidence of obstruction, uvula midline. Mucous membranes moist. Neck: Trachea midline, no thyromegaly or masses palpated, and no cervical lymphadenopathy. Supple, full range of motion without nuchal rigidity, or vertebral point tenderness. No Meningismus. Cardiovascular: Regular rate and rhythm with a normal S1 and S2. No gallops, murmurs, or rubs. Normal PMI, no JVD. No pulse deficits. Respiratory: Lungs have equal breath sounds bilaterally, clear to auscultation and percussion. No rales, rhonchi or wheezes noted. No increased work of breathing, no retractions or nasal flaring. Abdomen/GI: Soft, non-tender, with normal bowel sounds. No distension or tympany. No guarding or rebound. No evidence of tenderness throughout. Back: No spinal tenderness. No costovertebral tenderness. Full range of motion. Skin: Warm, dry with normal turgor. Normal color with no rashes, no lesions, and no evidence of cellulitis. Open sacral wound is clean and without discharge MS/ Extremity: Pulses equal, no cyanosis. Neurovascular intact. Full, normal range of motion. Neuro: Awake and alert, GCS 15, oriented to person, place, time, and situation. Cranial nerves II-XII grossly intact. Motor strength 5/5 in all extremities. Sensory grossly intact. Cerebellar exam normal. Normal gait. Vital Signs: 17:02 BP 139 / 89; Pulse 76; Resp 18; Temp 97.0; Pulse Ox 98% on R/A; Weight 49.9 kg; Height aj 5 ft. 1 in. (154.94 cm); 18:30 BP 138 / 92; Pulse 72; Resp 18; Pulse Ox 99% on R/A; kr2 19:15 BP 130 / 90; Pulse 76; Resp 20; Pulse Ox 99% on R/A; kr2 17:02 Body Mass Index 20.78 (49.90 kg, 154.94 cm) aj MDM: 17:12 Patient medically screened. jr8 18:35 Data reviewed: vital signs, nurses notes, lab test result(s), and as a result, I will jr8 discharge patient. Data interpreted: Pulse oximetry: on room air is 98 %. Interpretation: normal. Counseling: I had a detailed discussion with the patient and/or guardian regarding: the historical points, exam findings, and any diagnostic results supporting the discharge/admit diagnosis, lab results, the need for outpatient follow up, a family practitioner, to return to the emergency department if symptoms worsen or persist or if there are any questions or concerns that arise at home. Response to treatment: the patient's symptoms have markedly improved after treatment, patient is well hydrated. 01/22 17:12 Order name: Basic Metabolic Panel; Complete Time: 18:14 [facility] 01/22 17:12 Order name: CBC with Diff; Complete Time: 18:06 [facility] 01/22 17:12 Order name: Creatinine for Radiology; Complete Time: 18:14 [facility] 01/22 17:12 Order name: Hepatic Function; Complete Time: 18:14 [facility] 01/22 17:12 Order name: Lipase; Complete Time: 18:14 [facility] 01/22 18:21 Order name: Urine Dipstick--Ancillary (enter results); Complete Time: 18:34 01/22 17:12 Order name: IV Saline Lock; Complete Time: 17:20 [facility] 01/22 17:12 Order name: Labs collected and sent; Complete Time: 17:20 [facility] 01/22 17:12 Order name: Urine Dipstick-Ancillary (obtain specimen); Complete Time: 17:58 jr Administered Medications: 18:41 Drug: NS 0.9% 1000 ml Route: IV; Rate: 1000 ml; Site: left antecubital; kr2 19:20 Follow up: Response: No adverse reaction; IV Status: Completed infusion kr2 Point of Care Testing: Blood Glucose: 17:20 Blood Glucose: 261 mg/dL; kr2 Ranges: Critical Glucose Levels:Adult <50 mg/dl or >400 mg/dl <40 mg/dl or >180 mg/dl Disposition: 01/23 06:58 Co-signature as Attending Physician, Jose Powell MD. rn Disposition: 01/22/18 18:39 Discharged to Home. Impression: Hyperglycemia, unspecified, Dehydration. - Condition is Stable. - Discharge Instructions: Dehydration, Adult, Hyperglycemia, Blood Glucose Monitoring, Adult, Diabetes Mellitus and Food. - Prescriptions for Zofran 4 mg Oral Tablet - take 1 tablet by ORAL route every 12 hours As needed; 20 tablet. - Medication Reconciliation Form, Thank You Letter, Antibiotic Education, Prescription Opioid Use form. - Follow up: Private Physician; When: 2 - 3 days; Reason: Recheck today's complaints, Continuance of care, Re-evaluation by your physician. - Problem is new. - Symptoms have improved. Signatures: Dispatcher [employer] EDMS Chanda Rice RN RN Jose Fuentes MD MD rn Roszak, Josh, PA PA jr8 Esha Santana RN RN kr2 Corrections: (The following items were deleted from the chart) 01/22 19:28 18:39 01/22/2018 18:39 Discharged to Home. Impression: Hyperglycemia, unspecified; kr2 Dehydration. Condition is Stable. Forms are Medication Reconciliation Form, Thank You Letter, Antibiotic Education, Prescription Opioid Use. Follow up: Private Physician; When: 2 - 3 days; Reason: Recheck today's complaints, Continuance of care, Re-evaluation by your physician. Problem is new. Symptoms have improved. jr8
--- NOTE | 2018-01-22 18:39 | ER ---
Nurse's Notes [facility] Name: Amaury Matamoros Age: 67 yrs Sex: Male : 1950 Arrival Date: 01/22/2018 Time: 16:46 Bed 25 Private MD: None, None Diagnosis: Hyperglycemia, unspecified;Dehydration Presentation: 01/22 17:00 Presenting complaint: Patient states: Sent by home health for evaluation of high blood aj pressure. Patient also reports nausea and vomiting that started 1 hour [employer]. Transition of care: patient was not received from another setting of care. Onset of symptoms was January 22, 2018. Risk Assessment: Do you want to hurt yourself or someone else? Patient reports no desire to harm self or others. Initial Sepsis Screen: Does the patient meet any 2 criteria? No. Patient's initial sepsis screen is negative. Does the patient have a suspected source of infection? No. Patient's initial sepsis screen is negative. Care prior to arrival: None. 17:00 Method Of Arrival: Wheelchair aj 17:00 Acuity: ALEJANDRA 3 aj Triage Assessment: 17:02 General: Appears in no apparent distress. comfortable, Behavior is calm, cooperative, aj appropriate for age. Pain: Denies pain. Neuro: Level of Consciousness is awake, alert, obeys commands, Oriented to person, place, time, situation, Appropriate for age. Respiratory: Airway is patent Respiratory effort is even, unlabored, Respiratory pattern is regular, symmetrical. GI: Reports nausea, vomiting. Derm: Skin is intact, is healthy with good turgor, Skin is pink, warm \T\ dry. normal. 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 - Social history:: Smoking status: Patient/guardian denies using tobacco. - Ebola Screening: : Patient negative for fever greater than or equal to 101.5 degrees Fahrenheit, and additional compatible Ebola Virus Disease symptoms Patient denies exposure to infectious person Patient denies travel to an Ebola-affected area in the 21 days before illness onset No symptoms or risks identified at this time. Screenin:45 Abuse screen: Denies threats or abuse. Denies injuries from another. Nutritional kr2 screening: No deficits noted. Tuberculosis screening: No symptoms or risk factors identified. Fall Risk IV access (20 points). Gait- Impaired (20 pts.). Assessment: 17:19 Reassessment: Patient reports he was seen by his home health nurse and she told him his kr2 blood sugar was over 300. Blood glucose at this when checked by me 261. 17:20 General: Appears in no apparent distress. comfortable, slender, unkempt, well kr2 developed, well nourished, Behavior is calm, cooperative, appropriate for age. Pain: Denies pain. Neuro: Level of Consciousness is awake, alert, obeys commands, Oriented to person, place, time, situation, Appropriate for age. Cardiovascular: Capillary refill < 3 seconds in bilateral fingers Patient's skin is warm and dry. Respiratory: Airway is patent Respiratory effort is even, unlabored, Respiratory pattern is regular, symmetrical. GI: Abdomen is flat, non-distended, Reports nausea. : Denies burning with urination, inability to void. EENT: Oral mucosa is dry. Derm: Skin is intact, with poor turgor Skin is pink, warm \T\ dry. Wound noted buttocks Wound is from an abscess that was drained and debrided (per patient report). Patient is caring for wound at home. Musculoskeletal: Amputation of left lower extremity-below the knee. 18:30 Reassessment: Patient appears in no apparent distress at this time. Patient and/or kr2 family updated on plan of care and expected duration. Pain level reassessed. Patient is alert, oriented x 3, equal unlabored respirations, skin warm/dry/pink. Patient states feeling better. 19:15 Reassessment: Patient appears in no apparent distress at this time. Patient and/or kr2 family updated on plan of care and expected duration. Pain level reassessed. Patient is alert, oriented x 3, equal unlabored respirations, skin warm/dry/pink. Patient denies pain at this time. Patient states feeling better. Vital Signs: 17:02 BP 139 / 89; Pulse 76; Resp 18; Temp 97.0; Pulse Ox 98% on R/A; Weight 49.9 kg; Height aj 5 ft. 1 in. (154.94 cm); 18:30 BP 138 / 92; Pulse 72; Resp 18; Pulse Ox 99% on R/A; kr2 19:15 BP 130 / 90; Pulse 76; Resp 20; Pulse Ox 99% on R/A; kr2 17:02 Body Mass Index 20.78 (49.90 kg, 154.94 cm) ED Course: 16:46 Patient arrived in ED. mr 16:46 None, None is Private Physician. mr 17:02 Triage completed. aj 17:02 Arm band placed on left wrist. Patient placed in an exam room. aj 17:12 Esha Santana, RN is Primary Nurse. kr2 17:12 Piero Flanagan PA is PHCP. jr8 17:12 Jose Powell MD is Attending Physician. jr8 17:40 Inserted saline lock: 20 gauge in left antecubital area, using aseptic technique. Blood kr2 collected. 17:50 Patient has correct armband on for positive identification. Bed in low position. Call kr2 light in reach. Side rails up X 1. Adult w/ patient. Pulse ox on. NIBP on. Door closed. Head of bed elevated. 19:20 No provider procedures requiring assistance completed. IV discontinued, intact, kr2 bleeding controlled, No redness/swelling at site. Pressure dressing applied. Administered Medications: 18:41 Drug: NS 0.9% 1000 ml Route: IV; Rate: 1000 ml; Site: left antecubital; kr2 19:20 Follow up: Response: No adverse reaction; IV Status: Completed infusion kr2 Point of Care Testing: Blood Glucose: 17:20 Blood Glucose: 261 mg/dL; kr2 Ranges: Outcome: 18:39 Discharge ordered by . jr8 19:20 Discharged to home via wheelchair, with family. kr2 19:20 Condition: good 19:20 Discharge instructions given to patient, family, Instructed on discharge instructions, follow up and referral plans. medication usage, Demonstrated understanding of instructions, follow-up care, medications, Prescriptions given X 1. 19:28 Patient left the ED. kr2 Signatures: Chanda Rice RN RN Monae Harrison mr Piero Flanagan PA PA jr8 Esha Santana, COURTNEY RN kr2 Corrections: (The following items were deleted from the chart) 17:50 17:19 Reassessment: Patient reports he was seen by his home health nurse and she told kr2 him his blood sugar was over 300. Blood glucose at this when checked by me 261 [email or web address]
[2018-01-22] MEDS ORDERED: NA CHLORIDE 0.9% 1,000 ML ONE (18:41)
[2018-01-22 19:38] VITALS: BP 139/89; TEMP 97; O2SAT 98
== END 2018-01-22 19:28 | disposition home or self-care (01) ==
LOC: ER 16:43
DX: E11.65 Type 2 diabetes mellitus with hyperglycemia (principal); E86.0 Dehydration; I10 Essential (primary) hypertension; Z88.0 Allergy status to penicillin
CPT/HCPCS: 36415; 80048; 80076; 81003; 82962; 83690; 85025; 96360; 99284; J7030

== ENCOUNTER 2018-02-06 21:26 | Emergency (ER) | payer OTHER ==
[2018-02-06 22:48] LABS: Absolute Lymphocytes (CBC) 1.6 K/uL (0.7-4.9); Absolute Monocytes 0.4 K/uL (0.1-1.3); Basophils % 0.4 % (0-1.3); Eosinophils % 1.2 % (0-4.4); Hematocrit 36.6 % (39.6-49.0); Lymphocytes % 21.9 % (15.3-44.8); MCH 29.9 pg (27.0-35.0); MCV 86.2 fL (80-100); MPV 8.7 fL (7.6-11.3); Monocytes % 5.9 % (3.3-12.3); RBC Red Blood Cell Count 4.25 M/uL (4.33-5.43)
[2018-02-06] MEDS ORDERED: MORPHINE 4 MG/ML SYR ONE (22:59)
[2018-02-06] MEDS ORDERED: NA CHLORIDE 0.9% 500 ML ONE (23:00)
[2018-02-06] MEDS ORDERED: NA CHLORIDE 0.9% 1,000 ML ONE (23:00)
[2018-02-06] MEDS ORDERED: FAMOTIDINE 20 MG/2 ML VIAL IV ONE (23:00)
[2018-02-06] MEDS ORDERED: ONDANSETRON 4 MG/2 ML VIAL ONE (23:00)
[2018-02-06 23:09] LABS: Albumin 3.2 g/dL (3.4-5.0); Bilirubin Direct 0.3 mg/dL (0-0.2); Bilirubin Total 0.5 mg/dL (0.2-1.0); Magnesium 1.5 mg/dL (1.8-2.4); Potassium 3.2 mmol/L (3.5-5.1); Protein, Total 8.3 g/dL (6.4-8.2)
[2018-02-07 01:48] LABS: Urine Bacteria <20 /HPF (NONE SEEN); Urine Culture Reflex Order NOT NEEDED; Urine RBC <5 /HPF (NONE SEEN)
[2018-02-07 01:50] LABS: Urine Blood TRACE (NEG); Urine Glucose NEGATIVE (NEG); Urine Protein NEGATIVE (NEG)
[2018-02-07] MEDS ORDERED: POTASSIUM 25 MEQ EFFERV TAB ONE (02:03)
[2018-02-07] MEDS ORDERED: Magnesium Sulfate 1gm IVPB 2 GM/100 ML BAG IV ONE (02:04)
--- NOTE | 2018-02-07 02:11 | EDPHYS ---
Physician Documentation [facility] Name: Amaury Matamoros Age: 67 yrs Sex: Male : 1950 Arrival Date: 02/06/2018 Time: 21:27 Bed 20 Private MD: Kael Goldstein H ED Physician Wally Miles HPI: 02/06 22:15 This 67 yrs old Male presents to ER via Wheelchair with complaints of cp Abdominal Pain, Vomiting. 22:15 The patient presents with abdominal pain. cp 22:15 Onset: The symptoms/episode began/occurred today. cp 22:15 The symptoms do not radiate. Associated signs and symptoms: Pertinent positives: cp diarrhea, nausea, vomiting, Pertinent negatives: blood in stools, fever, vomiting blood. Severity of pain: in the emergency department the pain is unchanged despite home interventions. Historical: - Allergies: 21:42 PENICILLINS; aj1 - Home Meds: 21:42 Aspirin Oral [Active]; Metformin Oral [Active]; aj1 - PMHx: 21:42 Cellulitis; Diabetes - NIDDM; Hypertension; aj1 - Immunization history:: Flu vaccine is up to date. - Social history:: Smoking status: Patient/guardian denies using tobacco. - Ebola Screening: : Patient denies travel to an Ebola-affected area in the 21 days before illness onset. ROS: 22:22 Constitutional: Negative for body aches, chills, fever, poor PO intake. cp 22:22 Eyes: Negative for injury, pain, redness, and discharge. cp 22:22 Cardiovascular: Negative for chest pain, edema, palpitations. 22:22 Respiratory: Negative for cough, shortness of breath, wheezing. 22:22 Abdomen/GI: Positive for abdominal pain, nausea, vomiting, diarrhea, Negative for constipation, hematemesis, black/tarry stool, rectal pain, rectal bleeding. 22:22 Back: Negative for radiated pain. 22:22 Skin: Negative for cellulitis, rash. 22:22 Neuro: Negative for altered mental status, dizziness, headache, weakness. 22:22 All other systems are negative. Exam: 22:28 Constitutional: The patient appears in no acute distress, alert, awake, cp non-diaphoretic, non-toxic, well developed, well nourished. 22:28 Head/Face: Normocephalic, atraumatic. cp 22:28 Eyes: Periorbital structures: appear normal, Conjunctiva: normal, no exudate, no injection, Lids and lashes: appear normal, bilaterally. 22:28 ENT: External ear(s): are unremarkable, Ear canal(s): are normal, clear, TM's: are normal, Nose: is normal, Mouth: Lips: moist, Oral mucosa: moist, Posterior pharynx: is normal, airway is patent, no erythema, no exudate. 22:28 Neck: ROM/movement: is normal, is supple, without pain, no range of motions limitations, no nuchal rigidity. 22:28 Chest/axilla: Inspection: normal, Palpation: is normal, no crepitus, no tenderness. 22:28 Cardiovascular: Rate: tachycardic, Rhythm: regular, Edema: is not appreciated, JVD: is not appreciated. 22:28 Respiratory: the patient does not display signs of respiratory distress, Respirations: normal, no use of accessory muscles, no retractions, no splinting, no tachypnea, labored breathing, is not present, Breath sounds: are clear throughout, no decreased breath sounds, no stridor, no wheezing. 22:28 Abdomen/GI: Inspection: abdomen appears normal, Bowel sounds: active, all quadrants, Palpation: soft, in all quadrants, moderate abdominal tenderness, in all quadrants, rebound tenderness, is not appreciated, involuntary guarding, is not appreciated. 22:28 Musculoskeletal/extremity: left BKA. 22:28 Skin: cellulitis, is not appreciated, no rash present. 22:28 Neuro: Orientation: to person, place \T\ time. Mentation: lucid, able to follow commands, Cerebellar function: is grossly normal, Motor: moves all fours, strength is normal, Sensation: is normal. 22:31 ECG was reviewed by the Attending Physician. cp Vital Signs: 21:42 BP 150 / 86; Pulse 107; Resp 20; Temp 97.8(TE); Pulse Ox 99% on R/A; Weight 51.71 kg aj1 (R); Height 5 ft. 1 in. (154.94 cm) (R); Pain 10/10; 22:54 BP 152 / 98; Pulse 87; Resp 17 S; Pulse Ox 98% on R/A; jd3 23:56 BP 179 / 93; Pulse 77; Resp 18 S; Pulse Ox 99% on R/A; jd3 02/07 00:40 BP 162 / 84; Pulse 82; Resp 17 S; Pulse Ox 100% on R/A; jd3 01:33 BP 141 / 80; Pulse 83; Resp 18 S; Pulse Ox 99% on R/A; jd3 02:39 BP 136 / 81; Pulse 85; Resp 17 S; Pulse Ox 100% on R/A; jd3 03:47 BP 136 / 71; Pulse 79; Resp 16 S; Pulse Ox 99% on R/A; jd3 02/06 21:42 Body Mass Index 21.54 (51.71 kg, 154.94 cm) aj1 MDM: 02/06 21:48 Patient medically screened. cp 23:00 Differential diagnosis: appendicitis, cholecystitis, Cholelithiasis, diverticulitis, cp gastritis, pancreatitis, Pyelonephritis, Ureterolithiasis, urinary tract infection. 02/07 02:10 Data reviewed: vital signs, nurses notes, lab test result(s), EKG, radiologic studies, cp CT scan. 02:10 Test interpretation: by ED physician or midlevel provider: ECG. Counseling: I had a cp detailed discussion with the patient and/or guardian regarding: the historical points, exam findings, and any diagnostic results supporting the discharge/admit diagnosis, lab results, radiology results, the need for outpatient follow up, a duct cleaner, to return to the emergency department if symptoms worsen or persist or if there are any questions or concerns that arise at home. Response to treatment: the patient's symptoms have markedly improved after treatment, Nausea and pain improved, vomiting resolved, and as a result, I will discharge patient. 02/06 22:09 Order name: Amylase, Serum; Complete Time: 01:55 cp 02/06 22:09 Order name: Basic Metabolic Panel; Complete Time: 01:55 cp 02/07 01:55 Interpretation: Normal except: K 3.2; GLUC 167; GFR 75. cp 02/06 22:09 Order name: CBC with Diff; Complete Time: 23:06 cp 02/06 22:09 Order name: Creatinine for Radiology; Complete Time: 23:06 cp 02/06 22:09 Order name: Hepatic Function; Complete Time: 01:55 cp 02/07 01:55 Interpretation: Normal except: AST 41; ALK 161; BILID 0.3; TP 8.3; ALB 3.2; GLOB 5.1; cp A/G 0.6. 02/06 22:09 Order name: Lipase; Complete Time: :55 cp 02/06 22:09 Order name: Urine Microscopic Only; Complete Time: 01:55 cp 02/06 22:15 Order name: Troponin I; Complete Time: 01:55 cp 02/07 01:56 Interpretation: TROP < 0.02; Reviewed. cp 02/06 22:45 Order name: Magnesium; Complete Time: 01:55 EDMS 02/07 01:56 Interpretation: Abnormal: MG 1.5. cp 02/06 23:06 Order name: CT Abd/Pelvis - W/Contrast: no oral contrast cp 02/07 00:31 Order name: Urine Dipstick--Ancillary (enter results); Complete Time: :55 rg2 02/07 01:56 Interpretation: Normal except: UBLD TRACE; UESTR TRACE. cp 02/06 22:09 Order name: IV Saline Lock; Complete Time: 22:41 cp 02/06 22:09 Order name: Labs collected and sent; Complete Time: 22:41 cp 02/06 22:09 Order name: Urine Dipstick-Ancillary (obtain specimen); Complete Time: 00:34 cp 02/06 22:15 Order name: EKG; Complete Time: 22:15 cp 02/06 22:15 Order name: EKG - Nurse/Tech; Complete Time: 22:41 cp 02/07 01:57 Order name: PO challenge; Complete Time: 02:09 cp EC/25 22:31 Rate is 83 beats/min. Rhythm is regular. DC interval is normal. QRS interval is normal. cp QT interval is normal. No ST changes noted. Interpreted by me. Reviewed by me. Administered Medications: 23:07 Drug: NS 0.9% 1000 ml Route: IV; Rate: 100 ml/hr; Site: right forearm; jd3 02/07 03:49 Follow up: Response: No adverse reaction; IV Status: Order to discontinue infusion; IV jd3 Intake: 700ml 02/06 23:08 Drug: Zofran 4 mg Route: IVP; Site: right forearm; jd3 02/07 00:09 Follow up: Response: No adverse reaction jd3 02/06 23:08 Drug: NS 0.9% 500 ml Route: IV; Rate: bolus; Site: right forearm; jd3 02/07 00:09 Follow up: Response: No adverse reaction; IV Status: Completed infusion; IV Intake: jd3 500ml 02/06 23:08 Drug: Pepcid 20 mg Route: IVP; Site: right forearm; jd3 02/07 00:09 Follow up: Response: No adverse reaction jd3 02/06 23:08 Drug: morphine 4 mg Route: IVP; Site: right forearm; jd3 02/07 00:09 Follow up: Response: No adverse reaction jd3 02:10 Drug: Magnesium Sulfate 2 grams Route: IVPB; Infused Over: 45 mins; Site: right jd3 antecubital; 03:48 Follow up: Response: No adverse reaction; IV Status: Completed infusion jd3 02:11 Drug: Potassium Effervescent Tablet 50 mEq Route: PO; jd3 03:01 Follow up: Response: No adverse reaction jd3 02:15 Drug: metroNIDAZOLE 500 mg Route: PO; jd3 03:01 Follow up: Response: No adverse reaction jd3 02:16 Drug: Ciprofloxacin 500 mg Route: PO; jd3 03:01 Follow up: Response: No adverse reaction jd3 Disposition: 06:52 Co-signature as Attending Physician, Wally Miles MD I agree with the assessment and marj plan of care. Disposition: 02/07/18 02:10 Discharged to Home. Impression: Nausea and vomiting, Diarrhea, unspecified. - Condition is Stable. - Discharge Instructions: Food Choices to Help Relieve Diarrhea, Adult, Diarrhea, Adult, Nausea and Vomiting, Adult. - Prescriptions for Bentyl 20 mg Oral Tablet - take 1 tablet by ORAL route every 6 hours As needed; 30 tablet. Cipro 500 mg Oral Tablet - take 1 tablet by ORAL route every 12 hours for 7 days; 14 tablet. Metronidazole 500 mg Oral Tablet - take 1 tablet by ORAL route every 8 hours; 21 tablet. promethazine 25 mg Oral Tablet - take 1 tablet by ORAL route every 6 hours As needed; 20 tablet. - Medication Reconciliation Form, Thank You Letter, Antibiotic Education, Prescription Opioid Use form. - Follow up: Private Physician; When: 1 - 2 days; Reason: Recheck today's complaints. - Problem is new. - Symptoms have improved. Signatures: Dispatcher [employer] Melinda Woodall RN RN aj1 Wally Miles MD MD cha Page, Corey, PA PA cp Hari Rodriguez, RN RN jd3 Corrections: (The following items were deleted from the chart) 02/06 22:45 22:15 MAGNESIUM+C.LAB.BRZ ordered. EDRI EDMS 02/07 03:49 02:10 02/07/2018 02:10 Discharged to Home. Impression: Nausea and vomiting; Diarrhea, jd3 unspecified. Condition is Stable. Forms are Medication Reconciliation Form, Thank You Letter, Antibiotic Education, Prescription Opioid Use. Follow up: Private Physician; When: 1 - 2 days; Reason: Recheck today's complaints. Problem is new. Symptoms have improved. cp
--- NOTE | 2018-02-07 02:11 | ER ---
Nurse's Notes [facility] Name: Amaury Matamoros Age: 67 yrs Sex: Male : 1950 Arrival Date: 02/06/2018 Time: 21:27 Bed 20 Private MD: Kael Goldstein H Diagnosis: Nausea and vomiting;Diarrhea, unspecified Presentation: 02/06 21:39 Presenting complaint: Patient states: "I got pain in my stomach, it hurts bad and I've aj1 been throwing up all day. I can't stand the pain" Reports RLQ and LLQ abdominal pain. Reports N/V/D/chills. Transition of care: patient was not received from another setting of care. Onset of symptoms was February 06, 2018. Risk Assessment: Do you want to hurt yourself or someone else? Patient reports no desire to harm self or others. Initial Sepsis Screen: Does the patient meet any 2 criteria? HR > 90 bpm. No. Patient's initial sepsis screen is negative. Does the patient have a suspected source of infection? No. Patient's initial sepsis screen is negative. Care prior to arrival: None. 21:39 Method Of Arrival: Wheelchair aj1 21:39 Acuity: ALEJANDRA 3 aj1 Triage Assessment: 21:42 General: Appears in no apparent distress. uncomfortable, Behavior is calm, cooperative, aj1 appropriate for age. Pain: Complains of pain in right lower quadrant and left lower quadrant Pain currently is 10 out of 10 on a pain scale. Neuro: Level of Consciousness is awake, alert, obeys commands, Speech is normal. Cardiovascular: Patient's skin is warm and dry. Respiratory: Airway is patent Respiratory effort is even, unlabored, Respiratory pattern is regular, symmetrical. GI: Reports diarrhea, nausea, vomiting. Historical: - Allergies: 21:42 PENICILLINS; aj1 - Home Meds: 21:42 Aspirin Oral [Active]; Metformin Oral [Active]; aj1 - PMHx: 21:42 Cellulitis; Diabetes - NIDDM; Hypertension; aj1 - Immunization history:: Flu vaccine is up to date. - Social history:: Smoking status: Patient/guardian denies using tobacco. - Ebola Screening: : Patient denies travel to an Ebola-affected area in the 21 days before illness onset. Screenin:59 Abuse screen: Denies threats or abuse. Nutritional screening: No deficits noted. jd3 Tuberculosis screening: No symptoms or risk factors identified. Fall Risk Ambulatory Aid- None/Bed Rest/Nurse Assist (0 pts). Gait- Normal/Bed Rest/Wheelchair (0 pts) Mental Status- Oriented to own ability (0 pts). Total Monahan Fall Scale indicates No Risk (0-24 pts). Assessment: 21:55 General: Appears uncomfortable, Behavior is cooperative, appropriate for age, anxious. jd3 Pain: Complains of pain in abdomen Pain does not radiate. Pain currently is 10 out of 10 on a pain scale. Quality of pain is described as sharp, Is continuous, Also complains of nausea. Neuro: Level of Consciousness is awake, alert, obeys commands, Oriented to person, place, time, situation, Appropriate for age. Cardiovascular: Heart tones S1 S2 present Capillary refill < 3 seconds Patient's skin is warm and dry. Respiratory: Airway is patent Respiratory effort is even, unlabored, Respiratory pattern is regular, symmetrical, Breath sounds are clear bilaterally. GI: Abdomen is flat, Bowel sounds present X 4 quads. Abd is soft X 4 quads Abdomen is tender to palpation in right lower quadrant and left lower quadrant Reports lower abdominal pain, nausea. : No signs and/or symptoms were reported regarding the genitourinary system. EENT: No signs and/or symptoms were reported regarding the EENT system. Derm: Skin is intact, Skin is dry, Skin is normal, Skin temperature is warm. 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 Range of motion: intact in all extremities. 23:56 Reassessment: Patient appears in no apparent distress at this time. Patient and/or jd3 family updated on plan of care and expected duration. Pain level reassessed. Patient is alert, oriented x 3, equal unlabored respirations, skin warm/dry/pink. 02/07 00:41 Reassessment: Patient appears in no apparent distress at this time. Patient and/or jd3 family updated on plan of care and expected duration. Pain level reassessed. Patient is alert, oriented x 3, equal unlabored respirations, skin warm/dry/pink. 01:33 Reassessment: Patient appears in no apparent distress at this time. Patient and/or jd3 family updated on plan of care and expected duration. Pain level reassessed. Patient is alert, oriented x 3, equal unlabored respirations, skin warm/dry/pink. 02:38 Reassessment: Patient appears in no apparent distress at this time. Patient and/or jd3 family updated on plan of care and expected duration. Pain level reassessed. Patient is alert, oriented x 3, equal unlabored respirations, skin warm/dry/pink. awaiting IV medications to infuse before discharge. 03:46 Reassessment: Patient appears in no apparent distress at this time. Patient and/or jd3 family updated on plan of care and expected duration. Pain level reassessed. Patient is alert, oriented x 3, equal unlabored respirations, skin warm/dry/pink. pt reported understanding of discharge instructions. Vital Signs: 02/06 21:42 BP 150 / 86; Pulse 107; Resp 20; Temp 97.8(TE); Pulse Ox 99% on R/A; Weight 51.71 kg aj1 (R); Height 5 ft. 1 in. (154.94 cm) (R); Pain 10/10; 22:54 BP 152 / 98; Pulse 87; Resp 17 S; Pulse Ox 98% on R/A; jd3 23:56 BP 179 / 93; Pulse 77; Resp 18 S; Pulse Ox 99% on R/A; jd3 02/07 00:40 BP 162 / 84; Pulse 82; Resp 17 S; Pulse Ox 100% on R/A; jd3 01:33 BP 141 / 80; Pulse 83; Resp 18 S; Pulse Ox 99% on R/A; jd3 02:39 BP 136 / 81; Pulse 85; Resp 17 S; Pulse Ox 100% on R/A; jd3 03:47 BP 136 / 71; Pulse 79; Resp 16 S; Pulse Ox 99% on R/A; jd3 02/06 21:42 Body Mass Index 21.54 (51.71 kg, 154.94 cm) aj1 ED Course: 02/06 21:27 Patient arrived in ED. es 21:27 Kael Goldstein MD is Private Physician. es 21:41 Triage completed. aj1 21:42 Arm band placed on Patient placed in an exam room. aj1 21:48 Wally Espinosa PA is PHCP. cp 21:48 Wally Miles MD is Attending Physician. cp 21:55 Hari Rodriguez, RN is Primary Nurse. jd3 21:59 Patient has correct armband on for positive identification. Bed in low position. Call jd3 light in reach. Side rails up X 1. 22:28 Inserted saline lock: 20 gauge in right forearm, using aseptic technique. Blood jd3 collected. 23:50 CT Abd/Pelvis - W/Contrast: no oral contrast In Process Unspecified. EDMS 02/07 00:11 CT completed. Patient tolerated procedure well. Patient moved to [place] via stretcher. Patient moved back from [place]. 03:47 No provider procedures requiring assistance completed. IV discontinued, intact, jd3 bleeding controlled, No redness/swelling at site. Pressure dressing applied. Administered Medications: 02/06 23:07 Drug: NS 0.9% 1000 ml Route: IV; Rate: 100 ml/hr; Site: right forearm; jd3 02/07 03:49 Follow up: Response: No adverse reaction; IV Status: Order to discontinue infusion; IV jd3 Intake: 700ml 02/06 23:08 Drug: Zofran 4 mg Route: IVP; Site: right forearm; jd3 02/07 00:09 Follow up: Response: No adverse reaction jd3 02/06 23:08 Drug: NS 0.9% 500 ml Route: IV; Rate: bolus; Site: right forearm; jd3 02/07 00:09 Follow up: Response: No adverse reaction; IV Status: Completed infusion; IV Intake: jd3 500ml 02/06 23:08 Drug: Pepcid 20 mg Route: IVP; Site: right forearm; jd3 02/07 00:09 Follow up: Response: No adverse reaction jd3 02/06 23:08 Drug: morphine 4 mg Route: IVP; Site: right forearm; jd3 02/07 00:09 Follow up: Response: No adverse reaction jd3 02:10 Drug: Magnesium Sulfate 2 grams Route: IVPB; Infused Over: 45 mins; Site: right jd3 antecubital; 03:48 Follow up: Response: No adverse reaction; IV Status: Completed infusion jd3 02:11 Drug: Potassium Effervescent Tablet 50 mEq Route: PO; jd3 03:01 Follow up: Response: No adverse reaction jd3 02:15 Drug: metroNIDAZOLE 500 mg Route: PO; jd3 03:01 Follow up: Response: No adverse reaction jd3 02:16 Drug: Ciprofloxacin 500 mg Route: PO; jd3 03:01 Follow up: Response: No adverse reaction jd3 Intake: 00:09 IV: 500ml; Total: 500ml. jd3 03:49 IV: 700ml; Total: 1200ml. jd3 Outcome: 02:10 Discharge ordered by MD. cp 03:47 Discharged to home via wheelchair, with family. jd3 03:47 Condition: stable 03:47 Discharge instructions given to patient, Instructed on discharge instructions, follow up and referral plans. medication usage, Demonstrated understanding of instructions, follow-up care, medications, Prescriptions given X 4. 03:49 Patient left the ED. jd3 Signatures: Dispatcher [employer] Melinda Woodall RN RN aj1 Violeta Felder Ervin eh Page, Corey, Hari Jaquez cp, RN RN jd3
[2018-02-07] MEDS ORDERED: CIPROFLOXACIN HCL 500 MG TAB ONE (02:16)
[2018-02-07] MEDS ORDERED: metroNIDAZOLE 500 MG TABLET ONE (02:16)
[2018-02-07 03:54] VITALS: TEMP 97.8
[2018-02-07 04:00] VITALS: BP 136/71; O2SAT 99
--- NOTE | 2018-02-07 08:59 | RAD REPORT ---
EXAM DESCRIPTION: CTAbdomen Pelvis W Contrast - 02/07/2018 5:20 am CLINICAL HISTORY: Abdominal pain. ABD PAIN COMPARISON: Abdomen Pelvis W Contrast dated 12/16/2017; Chest Single View dated 12/19/2017; Chest Sing le View dated 09/26/2017 TECHNIQUE: Biphasic CT imaging of the abdomen and pelvis was performed with 100 ml non-ionic IV cont rast. All CT scans are performed using dose optimization technique as appropriate and may include automated exposure control or mA/KV adjustment according to patient size. FINDINGS: The inferior lung alfonso are mildly emphysematous. Mild fatty liver is identified with a nodular contour to the liver parenchyma is seen, likely represe nting mild cirrhosis. No intra or extrahepatic biliary tree dilatation is seen. The spleen, pancreas, adrenal glands are within normal limit. There is subtle striated appearance to the kidneys seen bila terally. No bowel obstruction, free air, free fluid or abscess. Mild nonspecific thickening of the rectum seen . The appendix is not identified as a discrete structure, however, no secondary findings of appendici tis are identified. No evidence of significant lymphadenopathy. Large sacral soft tissue ulceration is seen. 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 IMPRESSION: Subtle striated appearance to kidneys could indicate pyelonephritis. Mild cirrhosis of the liver. Mild rectal wall thickening can be seen proctitis. Large decubitus ulceration at the level of the sacrococcygeal soft tissues. If there is concern for s acrococcygeal osteomyelitis, MR imaging may be of value for followup assessment.
--- NOTE | 2018-02-07 12:11 | EKG ---
Test Date: 2018-02-06 Test Time: 22:25:41 Retail Product Demo Specialist: NAVEED MEASUREMENT RESULTS: Intervals: Rate: 83 HI: 150 QRSD: 98 QT: 370 QTc: 434 [place]: P: 40 HI: 150 QRS: -15 T: 35 INTERPRETIVE STATEMENTS: Normal sinus rhythm Normal ECG Compared to ECG 06/05/2016 18:51:43 No significant changes Electronically Signed On 02-07-18 12:10:12 CDT by Noah Keyes
== END 2018-02-07 03:49 | disposition home or self-care (01) ==
LOC: ER 21:26
DX: R19.7 Diarrhea, unspecified (principal); R11.2 Nausea with vomiting, unspecified; E11.9 Type 2 diabetes mellitus without complications; I10 Essential (primary) hypertension; Z88.0 Allergy status to penicillin
CPT/HCPCS: 36415; 74177; 80048; 80076; 82150; 83690; 83735; 84484; 85025; 93005; 96361; 96365; 96366; 96375; 99284; J2405; J3475; J7030; Q9967; 81003; 81015

== ENCOUNTER 2018-02-20 11:22 | Emergency (ER) | payer OTHER ==
[2018-02-20] MEDS ORDERED: GABAPENTIN 300 MG CAP ONE (12:15)
[2018-02-20 12:20] LABS: Urine Blood NEGATIVE (NEG); Urine Glucose NEGATIVE (NEG); Urine Protein 1+ (NEG); Urine Specific Gravity 1.015 (1.005-1.030); Urine pH 6.5 (5.0-7.0)
[2018-02-20 12:32] LABS: Potassium 3.6 mmol/L (3.5-5.1)
[2018-02-20 12:34] LABS: Absolute Lymphocytes (CBC) 1.2 K/uL (0.7-4.9); Absolute Monocytes 0.4 K/uL (0.1-1.3); Absolute Neutrophil 3.9 K/uL (1.8-8.0); Basophils % 0.7 % (0-1.3); Eosinophils % 1.6 % (0-4.4); Hematocrit 36.1 % (39.6-49.0); Lymphocytes % 22.1 % (15.3-44.8); MCH 29.4 pg (27.0-35.0); MCV 87.1 fL (80-100); MPV 9.3 fL (7.6-11.3); Monocytes % 6.5 % (3.3-12.3); RBC Red Blood Cell Count 4.14 M/uL (4.33-5.43)
--- NOTE | 2018-02-20 13:11 | RAD REPORT ---
EXAM DESCRIPTION: RAD - Chest Single View - 02/20/2018 1:05 pm CLINICAL HISTORY: CHEST PAIN Chest pain. COMPARISON: Chest Single View dated 12/19/2017; Chest Single View dated 09/26/2017; Chest Single View d ated 04/30/2017; Chest Single View dated 04/28/2017 FINDINGS: Portable technique limits examination quality. Prominent interstitial lung markings are noted, unchanged. No focal infiltrate is seen. The heart is normal in size. No displaced fractures. IMPRESSION: Prominent chronic interstitial lung markings.
--- NOTE | 2018-02-20 13:14 | ER ---
Nurse's Notes [facility] Name: Amaury Matamoros Age: 67 yrs Sex: Male : 1950 Arrival Date: 02/20/2018 Time: 11:25 Bed 25 Private MD: Kael Goldstein H Diagnosis: Pain in left arm;Other chronic pain Presentation: 02/20 11:35 Presenting complaint: Patient states: yesterday all morning and night, i have pain on hj the L side of the body, L arm, goes numb and it was tingling, and my chest hurts; reports nausea and vomiting yesterday; pain is 10/10; denies weakness; speech was normal;. Transition of care: patient was not received from another setting of care. Onset of symptoms was February 20, 2018 at 08:00. Risk Assessment: Do you want to hurt yourself or someone else? Patient reports no desire to harm self or others. Initial Sepsis Screen: Does the patient meet any 2 criteria? No. Patient's initial sepsis screen is negative. Does the patient have a suspected source of infection? No. Patient's initial sepsis screen is negative. Care prior to arrival: None. 11:35 Method Of Arrival: Ambulatory 11:35 Acuity: ALEJANDRA 3 hj Triage Assessment: 11:39 General: Appears in no apparent distress. uncomfortable, Behavior is calm, cooperative, hj appropriate for age. Pain: Complains of pain in chest and left arm Pain currently is 10 out of 10 on a pain scale. 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 - Social history:: Smoking status: Patient/guardian denies using tobacco, Patient/guardian denies using alcohol. - Ebola Screening: : Patient negative for fever greater than or equal to 101.5 degrees Fahrenheit, and additional compatible Ebola Virus Disease symptoms Patient denies exposure to infectious person Patient denies travel to an Ebola-affected area in the 21 days before illness onset. Screenin:39 Abuse screen: Denies threats or abuse. Denies injuries from another. Nutritional hj screening: No deficits noted. Tuberculosis screening: No symptoms or risk factors identified. Fall Risk None identified. Assessment: 12:30 General: Appears in no apparent distress. comfortable, Behavior is calm, cooperative, aj appropriate for age. Pain: Complains of pain in left lateral anterior chest, left upper quadrant, right lower quadrant, left lower quadrant and left arm. Neuro: Level of Consciousness is awake, alert, obeys commands, Oriented to person, place, time, situation, Appropriate for age Fisher Dip Net are equal bilaterally Moves all extremities. Full function Speech is normal, Facial symmetry appears normal, Pupils are PERRLA, Numbness in left arm. Respiratory: Airway is patent Respiratory effort is even, unlabored, Respiratory pattern is regular, symmetrical. Derm: Skin is intact, is healthy with good turgor, Skin is pink, warm \T\ dry. normal. Vital Signs: 11:39 BP 114 / 77; Pulse 100; Resp 18; Temp 98.2(TE); Pulse Ox 97% on R/A; Weight 49.9 kg; hj Height 5 ft. 1 in. (154.94 cm); Pain 10/10; 13:23 BP 122 / 79; Pulse 74; Resp 19; Pulse Ox 99% on R/A; aj 11:39 Body Mass Index 20.79 (49.90 kg, 154.94 cm) hj ED Course: 11:25 Patient arrived in ED. mr 11:25 Kael Goldstein MD is Private Physician. mr 11:38 Triage completed. hj 11:39 Arm band placed on left wrist. hj 11:39 Patient has correct armband on for positive identification. Placed in gown. Bed in low hj position. Call light in reach. Side rails up X 1. 11:46 Piero Flanagan PA is PHCP. jr8 11:46 Jose Powell MD is Attending Physician. jr8 11:49 Chanda Rice, COURTNEY is Primary Nurse. aj 11:58 EKG done, by medical office technology instructor. reviewed by Piero BUENO. dt2 12:35 X-ray completed. Portable x-ray completed in exam room. Patient tolerated procedure jb2 well. 13:06 XRAY Chest (1 view) In Process Unspecified. EDMS 13:23 No provider procedures requiring assistance completed. IV discontinued, intact, aj bleeding controlled, No redness/swelling at site. Pressure dressing applied. Administered Medications: 12:17 Drug: Gabapentin 300 mg Route: PO; aj 13:23 Follow up: Response: No adverse reaction; No change in condition aj Outcome: 13:14 Discharge ordered by MD. pro 13:23 Discharged to home via wheelchair. ilad 13:23 Condition: good 13:23 Discharge instructions given to patient, Instructed on discharge instructions, follow up and referral plans. medication usage, Demonstrated understanding of instructions, follow-up care, medications, Prescriptions given X 1. 13:24 Patient left the ED. ilda Signatures: Dispatcher [employer] EDMS Chanda Rice, RN RN Monae Harrison mr [email or web address] Piero Flanagan PA PA jr8 Joaquin, Henry, RN RN Krysta Phoenix dt2 Corrections: (The following items were deleted from the chart) 11:41 11:39 Pulse 100bpm; Resp 18bpm; Pulse Ox 97% RA; Temp 98.2F Temporal; 49.9 kg; Height 5 hj ft. 1 in.; BMI: 20.7; Pain 10/10; hj 12:19 11:35 Presenting complaint: Patient states: yesterday all morning and night, i have on hj the L side of the body, L arm, goes numb and it tingling, and my chest hurts; reports nausea and vomiting yesterday; pain is 10/10; denies weakness; speech was normal; hj
--- NOTE | 2018-02-20 13:15 | EDPHYS ---
Physician Documentation [facility] Name: Amaury Matamoros Age: 67 yrs Sex: Male : 1950 Arrival Date: 02/20/2018 Time: 11:25 Bed 25 Private MD: Kael Goldstein H ED Physician Jose Powell HPI: 02/20 12:08 This 67 yrs old Male presents to ER via Ambulatory with complaints of Arm Pain.jr8 12:08 The patient or guardian complains of pain, numbness. The complaints affect the left jr8 arm. Onset: The symptoms/episode began/occurred chronic. Treatment prior to arrival includes: no previous treatment. Modifying factors: The symptoms are alleviated by nothing. the symptoms are aggravated by movement. Associated signs and symptoms: Pertinent positives: chest pain. Severity of symptoms: At their worst the symptoms were moderate, in the emergency department the symptoms have improved. The patient has experienced similar episodes in the past, multiple times, chronically. The patient has been recently seen by a physician:. Stated that his [place]'s that he is prescribed are not working. Patient describes his pain as numbness. Denies trauma to arm or neck. 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 - Social history:: Smoking status: Patient/guardian denies using tobacco, Patient/guardian denies using alcohol. - Ebola Screening: : Patient negative for fever greater than or equal to 101.5 degrees Fahrenheit, and additional compatible Ebola Virus Disease symptoms Patient denies exposure to infectious person Patient denies travel to an Ebola-affected area in the 21 days before illness onset. ROS: 12:08 Eyes: Negative for injury, pain, redness, and discharge, ENT: Negative for injury, jr8 pain, and discharge, Neck: Negative for injury, pain, and swelling, Respiratory: Negative for shortness of breath, cough, wheezing, and pleuritic chest pain, Abdomen/GI: Negative for abdominal pain, nausea, vomiting, diarrhea, and constipation, Back: Negative for injury and pain, MS/Extremity: Negative for injury and deformity, Skin: Negative for injury, rash, and discoloration. 12:08 Cardiovascular: Positive for chest pain, Negative for edema, orthopnea, palpitations, paroxysmal nocturnal dyspnea. 12:08 Neuro: Positive for numbness, of the left arm. Exam: 12:08 Eyes: Pupils equal round and reactive to light, extra-ocular motions intact. Lids and jr8 lashes normal. Conjunctiva and sclera are non-icteric and not injected. Cornea within normal limits. Periorbital areas with no swelling, redness, or edema. ENT: Nares patent. No nasal discharge, no septal abnormalities noted. Tympanic membranes are normal and external auditory canals are clear. Oropharynx with no redness, swelling, or masses, exudates, or evidence of obstruction, uvula midline. Mucous membranes moist. Neck: Trachea midline, no thyromegaly or masses palpated, and no cervical lymphadenopathy. Supple, full range of motion without nuchal rigidity, or vertebral point tenderness. No Meningismus. Cardiovascular: Regular rate and rhythm with a normal S1 and S2. No gallops, murmurs, or rubs. Normal PMI, no JVD. No pulse deficits. Respiratory: Lungs have equal breath sounds bilaterally, clear to auscultation and percussion. No rales, rhonchi or wheezes noted. No increased work of breathing, no retractions or nasal flaring. Abdomen/GI: Soft, non-tender, with normal bowel sounds. No distension or tympany. No guarding or rebound. No evidence of tenderness throughout. Back: No spinal tenderness. No costovertebral tenderness. Full range of motion. Skin: Warm, dry with normal turgor. Normal color with no rashes, no lesions, and no evidence of cellulitis. MS/ Extremity: Pulses equal, no cyanosis. Neurovascular intact. Full, normal range of motion. Neuro: Awake and alert, GCS 15, oriented to person, place, time, and situation. Cranial nerves II-XII grossly intact. Motor strength 5/5 in all extremities. Sensory grossly intact. Cerebellar exam normal. Normal gait. Vital Signs: 11:39 BP 114 / 77; Pulse 100; Resp 18; Temp 98.2(TE); Pulse Ox 97% on R/A; Weight 49.9 kg; hj Height 5 ft. 1 in. (154.94 cm); Pain 10/10; 13:23 BP 122 / 79; Pulse 74; Resp 19; Pulse Ox 99% on R/A; aj 11:39 Body Mass Index 20.79 (49.90 kg, 154.94 cm) MDM: 11:46 Patient medically screened. 8 12:11 ED course: Patient with no palpated pain upon physical exam. Patient currently in no jr8 acute distress . 13:13 Data reviewed: vital signs, nurses notes, lab test result(s), EKG, radiologic studies, jr8 plain films, and as a result, I will discharge patient. Data interpreted: Pulse oximetry: on room air is 97 %. Interpretation: normal. Counseling: I had a detailed discussion with the patient and/or guardian regarding: the historical points, exam findings, and any diagnostic results supporting the discharge/admit diagnosis, lab results, radiology results, the need for outpatient follow up, a family practitioner, to return to the emergency department if symptoms worsen or persist or if there are any questions or concerns that arise at home. 02/20 12:03 Order name: CBC with Diff; Complete Time: 12:39 8 02/20 12:03 Order name: Basic Metabolic Panel; Complete Time: 12:39 [facility] 02/20 12:04 Order name: XRAY Chest (1 view); Complete Time: 13:13 [facility] 02/20 12:04 Order name: Troponin (emerg Dept Use Only); Complete Time: 12:39 [facility] 02/20 12:16 Order name: Urine Dipstick--Ancillary (enter results); Complete Time: 12:39 ag 02/20 11:41 Order name: EKG; Complete Time: 11:42 hj 02/20 12:03 Order name: IV; Complete Time: 12:17 [facility] Administered Medications: 12:17 Drug: Gabapentin 300 mg Route: PO; aj 13:23 Follow up: Response: No adverse reaction; No change in condition aj Disposition: 16:27 Co-signature as Attending Physician, Jose Powell MD. rn Disposition: 02/20/18 13:14 Discharged to Home. Impression: Pain in left arm, Other chronic pain. - Condition is Stable. - Discharge Instructions: Chronic Pain, Diabetic Neuropathy. - Prescriptions for gabapentin 300 mg Oral capsule - take 1 capsule by ORAL route Day 1 then 1 capsule BID on day 2, then 1 capsulte TID on day 3. Continue 1 capsule TID from there on out; 60 capsule. - Medication Reconciliation Form, Thank You Letter, Antibiotic Education, Prescription Opioid Use form. - Follow up: Private Physician; When: 2 - 3 days; Reason: Recheck today's complaints, Continuance of care, Re-evaluation by your physician. - Problem is new. - Symptoms have improved. Signatures: Dispatcher [employer] EDChanda Scott RN RN aj Nieto, Roman, MD MD rn Roszak, Josh, PA PA jr8 Finn Rock RN RN hj Corrections: (The following items were deleted from the chart) 13:14 13:14 02/20/2018 13:14 Discharged to Home. Impression: Pain in left arm. Condition is jr8 Stable. Forms are Medication Reconciliation Form, Thank You Letter, Antibiotic Education, Prescription Opioid Use. Follow up: Private Physician; When: 2 - 3 days; Reason: Recheck today's complaints, Continuance of care, Re-evaluation by your physician. Problem is new. Symptoms have improved. jr8 13:24 13:14 02/20/2018 13:14 Discharged to Home. Impression: Pain in left arm; Other chronic aj pain. Condition is Stable. Forms are Medication Reconciliation Form, Thank You Letter, Antibiotic Education, Prescription Opioid Use. Follow up: Private Physician; When: 2 - 3 days; Reason: Recheck today's complaints, Continuance of care, Re-evaluation by your physician. Problem is new. Symptoms have improved. jr8
[2018-02-20 13:36] VITALS: TEMP 98.2
[2018-02-20 13:37] VITALS: BP 122/79; O2SAT 99
--- NOTE | 2018-02-20 17:06 | EKG ---
Test Date: 2018-02-20 Test Time: 11:51:46 Vehicle Controls Engineer: ANDRZEJ MEASUREMENT RESULTS: Intervals: Rate: 83 MA: 122 QRSD: 90 QT: 348 QTc: 408 [place]: P: 14 MA: 122 QRS: -13 T: -2 INTERPRETIVE STATEMENTS: Normal sinus rhythm Normal ECG Compared to ECG 02/06/2018 22:25:41 No significant changes Electronically Signed On 02-20-18 17:05:06 CDT by Johnie Rondon
== END 2018-02-20 13:24 | disposition home or self-care (01) ==
LOC: ER 11:22
DX: G89.29 Other chronic pain (principal); I10 Essential (primary) hypertension; E11.9 Type 2 diabetes mellitus without complications; Z79.82 Long term (current) use of aspirin; Z88.0 Allergy status to penicillin
CPT/HCPCS: 36415; 71045; 80048; 81003; 84484; 85025; 93005; 99284

== ENCOUNTER 2018-04-23 12:20 | Observation (INO) | payer OTHER ==
[2018-04-23 12:56] LABS: Absolute Lymphocytes (CBC) 1.8 K/uL (0.7-4.9); Absolute Monocytes 0.8 K/uL (0.1-1.3); Absolute Neutrophil 7.6 K/uL (1.8-8.0); Basophils % 0.6 % (0-1.3); Eosinophils % 1.7 % (0-4.4); Hematocrit 34.6 % (39.6-49.0); Lymphocytes % 17.3 % (15.3-44.8); MCH 29.6 pg (27.0-35.0); MCV 88.9 fL (80-100); MPV 9.8 fL (7.6-11.3); Monocytes % 7.5 % (3.3-12.3); Protime INR 0.98; RBC Red Blood Cell Count 3.89 M/uL (4.33-5.43)
[2018-04-23 13:13] LABS: ALT/SGPT 60 U/L (12-78); AST/SGOT 56 U/L (15-37); Alkaline Phosphatase 356 U/L (45-117); BUN Blood Urea Nitrogen 21 mg/dL (7-18); Bicarbonate 25 mmol/L (21-32); Bilirubin Direct 0.2 mg/dL (0-0.2); Bilirubin Total 0.3 mg/dL (0.2-1.0); Glucose Level 221 mg/dL (74-106); Lipase 981 U/L (73-393); Magnesium 1.8 mg/dL (1.8-2.4); NT PRO-BNP 644 pg/mL (<125); Potassium 4.2 mmol/L (3.5-5.1); Protein, Total 8.2 g/dL (6.4-8.2); Sodium Level 137 mmol/L (136-145); Troponin (Emerg Dept Use Only) < 0.02 ng/mL (0.0-0.045)
--- NOTE | 2018-04-23 13:14 | EDPHYS ---
Physician Documentation [facility] Name: Amaury Matamoros Age: 67 yrs Sex: Male : 1950 Arrival Date: 04/23/2018 Time: 12:23 Bed 5 Private MD: None, None ED Physician Wally Miles HPI: 04/23 12:48 This 67 yrs old Male presents to ER via Ambulatory with complaints of Chest marj Pain. 12:48 The patient or guardian reports chest pain that is located primarily in the substernal marj area. Onset: this morning. The pain radiates to. Associated signs and symptoms: Pertinent positives: lightheadedness. The chest pain is described as a pressure. Modifying factors: The symptoms are alleviated by nothing. the symptoms are aggravated by nothing. Severity of pain: At its worst the pain was mild in the emergency department the pain is unchanged. The patient has not experienced similar symptoms in the past. Historical: - Allergies: 12:40 PENICILLINS; bp - Home Meds: 12:40 Aspirin Oral [Active]; Metformin Oral [Active]; bp - PMHx: 12:40 Diabetes - NIDDM; Hypertension; Cellulitis; bp - PSHx: 12:40 LLE AMPUTATION; bp - Immunization history:: Adult Immunizations up to date. - Social history:: Smoking status: Patient/guardian denies using tobacco. - Ebola Screening: : Patient negative for fever greater than or equal to 101.5 degrees Fahrenheit, and additional compatible Ebola Virus Disease symptoms Patient denies exposure to infectious person Patient denies travel to an Ebola-affected area in the 21 days before illness onset No symptoms or risks identified at this time. - Family history:: not pertinent. ROS: 12:48 Constitutional: Negative for fever, chills, and weight loss, Eyes: Negative for injury, marj pain, redness, and discharge, ENT: Negative for injury, pain, and discharge, Neck: Negative for injury, pain, and swelling, Respiratory: Negative for shortness of breath, cough, wheezing, and pleuritic chest pain, Abdomen/GI: Negative for abdominal pain, nausea, vomiting, diarrhea, and constipation, Back: Negative for injury and pain, : Negative for injury, bleeding, discharge, and swelling, MS/Extremity: Negative for injury and deformity, Skin: Negative for injury, rash, and discoloration, Neuro: Negative for headache, weakness, numbness, tingling, and seizure. 12:48 Cardiovascular: Positive for chest pain, palpitations. Exam: 12:48 Constitutional: This is a well developed, well nourished patient who is awake, alert, marj and in no acute distress. Head/Face: Normocephalic, atraumatic. Eyes: Pupils equal round and reactive to light, extra-ocular motions intact. Lids and lashes normal. Conjunctiva and sclera are non-icteric and not injected. Cornea within normal limits. Periorbital areas with no swelling, redness, or edema. ENT: Nares patent. No nasal discharge, no septal abnormalities noted. Tympanic membranes are normal and external auditory canals are clear. Oropharynx with no redness, swelling, or masses, exudates, or evidence of obstruction, uvula midline. Mucous membranes moist. Neck: Trachea midline, no thyromegaly or masses palpated, and no cervical lymphadenopathy. Supple, full range of motion without nuchal rigidity, or vertebral point tenderness. No Meningismus. Chest/axilla: Normal chest wall appearance and motion. Nontender with no deformity. No lesions are appreciated. Cardiovascular: Regular rate and rhythm with a normal S1 and S2. No gallops, murmurs, or rubs. Normal PMI, no JVD. No pulse deficits. Respiratory: Lungs have equal breath sounds bilaterally, clear to auscultation and percussion. No rales, rhonchi or wheezes noted. No increased work of breathing, no retractions or nasal flaring. Abdomen/GI: Soft, non-tender, with normal bowel sounds. No distension or tympany. No guarding or rebound. No evidence of tenderness throughout. Back: No spinal tenderness. No costovertebral tenderness. Full range of motion. Male : Normal genitalia with no discharge or lesions. Skin: Warm, dry with normal turgor. Normal color with no rashes, no lesions, and no evidence of cellulitis. MS/ Extremity: Pulses equal, no cyanosis. Neurovascular intact. Full, normal range of motion. Neuro: Awake and alert, GCS 15, oriented to person, place, time, and situation. Cranial nerves II-XII grossly intact. Motor strength 5/5 in all extremities. Sensory grossly intact. Cerebellar exam normal. Normal gait. Psych: Awake, alert, with orientation to person, place and time. Behavior, mood, and affect are within normal limits. Vital Signs: 12:40 Weight 51.26 kg; Height 5 ft. 2 in. (157.48 cm); bp 12:58 BP 147 / 79; Pulse 69; Resp 17; Temp 97.2; Pulse Ox 100% on R/A; sg 14:36 BP 144 / 87; Pulse 68; Resp 18; Pulse Ox 99% on R/A; jb1 15:13 BP 144 / 83; Pulse 66; Resp 16; Pulse Ox 98% on R/A; Pain 2/10; ss 12:40 Body Mass Index 20.67 (51.26 kg, 157.48 cm) bp MDM: 12:29 Patient medically screened. [facility] 12:50 Data reviewed: vital signs, nurses notes, lab test result(s), EKG, radiologic studies, [facility] CT scan, plain films. 04/23 12:30 Order name: Basic Metabolic Panel; Complete Time: 13:31 [facility] 04/23 12:30 Order name: CBC with Diff; Complete Time: 13:31 [facility] 04/23 12:30 Order name: LFT's; Complete Time: 13:31 [facility] 04/23 12:30 Order name: Magnesium; Complete Time: 13:31 [facility] 04/23 12:30 Order name: NT PRO-BNP; Complete Time: 13:31 [facility] 04/23 12:30 Order name: PT-INR; Complete Time: 13:31 [facility] 04/23 12:30 Order name: Troponin (emerg Dept Use Only); Complete Time: 13:31 [facility] 04/23 12:30 Order name: Lipase; Complete Time: 13:31 [facility] 04/23 12:48 Order name: D-Dimer [facility] 04/23 12:49 Order name: D-Dimer; Complete Time: 14:25 [facility] 04/23 13:38 Order name: CKMB Creatine Kinase MB [facility] 04/23 13:38 Order name: CKMB Creatine Kinase MB [facility] 04/23 13:38 Order name: CKMB Creatine Kinase MB [facility] 04/23 13:38 Order name: Comprehensive Metabolic Panel [facility] 04/23 12:30 Order name: XRAY Chest (1 view); Complete Time: 14:25 [facility] 04/23 13:38 Order name: Comprehensive Metabolic Panel [facility] 04/23 13:38 Order name: Creatine Phosphokinase [facility] 04/23 13:38 Order name: Creatine Phosphokinase [facility] 04/23 13:38 Order name: Creatine Phosphokinase [facility] 04/23 13:38 Order name: Lipid Profile [facility] 04/23 13:38 Order name: Lipid Profile [facility] 04/23 13:39 Order name: Troponin I [facility] 04/23 14:11 Order name: Urine Dipstick--Ancillary (enter results) 04/23 12:30 Order name: EKG; Complete Time: 12:30 [facility] 04/23 12:30 Order name: Cardiac monitoring; Complete Time: 12:47 [facility] 04/23 12:30 Order name: EKG - Nurse/Tech; Complete Time: 14:48 [facility] 04/23 12:30 Order name: IV Saline Lock; Complete Time: 12:47 [facility] 04/23 12:30 Order name: Labs collected and sent; Complete Time: 12:47 [facility] 04/23 12:30 Order name: O2 Per Protocol; Complete Time: 12:47 [facility] 04/23 12:30 Order name: O2 Sat Monitoring; Complete Time: 12:47 [facility] 04/23 12:30 Order name: Urine Dipstick-Ancillary (obtain specimen); Complete Time: 12:47 [facility] 04/23 13:19 Order name: CONS Physician Consult [facility] 04/23 13:39 Order name: Consistent Carb (ADA) 2000 Yaw [facility] 04/23 13:47 Order name: Labs - recollect needed; Complete Time: 14:47 bd Administered Medications: 13:17 Drug: NS 0.9% 1000 ml Route: IV; Rate: 75 ml/hr; Site: right antecubital; ss 13:35 Follow up: IV Status: Infusion continued upon admission ss 13:17 Drug: Aspirin 162 mg Route: PO; ss 15:34 Follow up: Response: No adverse reaction ss 13:17 Drug: Zofran 4 mg Route: IVP; Site: right antecubital; ss 15:34 Follow up: Response: No adverse reaction ss 13:17 Drug: Lopressor 25 mg Route: PO; ss 15:33 Follow up: Response: No adverse reaction ss 13:19 Drug: Pepcid 20 mg Route: IVP; Site: right antecubital; ss 15:32 Follow up: Response: No adverse reaction ss 13:21 Drug: morphine 2 mg Route: IVP; Site: right antecubital; ss 15:33 Follow up: Response: No adverse reaction; Pain is decreased ss 13:26 Drug: Lovenox 50 mg Route: Sub-Q; Site: left lower abdomen; ss 15:33 Follow up: Response: No adverse reaction ss 15:12 Not Given (patient's pain improved greatly after initial dose. ): morphine 2 mg IVP oncess Point of Care Testing: Blood Glucose: 15:19 Blood Glucose: 145 mg/dL; ss Ranges: Critical Glucose Levels:Adult <50 mg/dl or >400 mg/dl <40 mg/dl or >180 mg/dl Disposition: 04/23/18 13:14 Hospitalization ordered by Mahesh Sotelo for Observation. Preliminary diagnosis are Chest pain, unspecified, Essential (primary) hypertension, Type 2 diabetes mellitus. - Bed requested for Telemetry/MedSurg (observation). - Status is Observation. ss - Condition is Stable. - Problem is new. - Symptoms have improved. UTI on Admission? No Signatures: Dispatcher [employer] EDMS Estela Alcantar Corey, MD MD cha Smirch, Shelby, RN RN ss Delmi Farmer RN RN df Malcolm Beatty RN RN bp Corrections: (The following items were deleted from the chart) 14:03 13:14 Hospitalization Ordered by Mario Saleh DO for Observation. Preliminary marj diagnosis is Chest pain, unspecified; Essential (primary) hypertension; Type 2 diabetes mellitus. Bed requested for Telemetry/MedSurg (observation). Status is Observation. Condition is Stable. Problem is new. Symptoms have improved. UTI on Admission? No. marj 15:07 14:03 04/23/2018 13:14 Hospitalization Ordered by Mahesh Sotelo MD for Observation. df Preliminary diagnosis is Chest pain, unspecified; Essential (primary) hypertension; Type 2 diabetes mellitus. Bed requested for Telemetry/MedSurg (observation). Status is Observation. Condition is Stable. Problem is new. Symptoms have improved. UTI on Admission? No. marj 15:35 15:07 04/23/2018 13:14 Hospitalization Ordered by Mahesh Sotelo MD for Observation. ss Preliminary diagnosis is Chest pain, unspecified; Essential (primary) hypertension; Type 2 diabetes mellitus. Bed requested for Telemetry/MedSurg (observation). Status is Observation. Condition is Stable. Problem is new. Symptoms have improved. UTI on Admission? No. df
--- NOTE | 2018-04-23 13:14 | ER ---
Nurse's Notes [facility] Name: Amaury Matamoros Age: 67 yrs Sex: Male : 1950 Arrival Date: 04/23/2018 Time: 12:23 Bed 5 Private MD: None, None Diagnosis: Chest pain, unspecified;Essential (primary) hypertension;Type 2 diabetes mellitus Presentation: 04/23 12:39 Presenting complaint: Patient states: LEFT SIDED CP SINCE 0300, RADIATING TO LUE. bp Transition of care: patient was not received from another setting of care. Onset of symptoms was April 23, 2018 at 03:00. Risk Assessment: Do you want to hurt yourself or someone else? Patient reports no desire to harm self or others. Initial Sepsis Screen: Does the patient meet any 2 criteria? No. Patient's initial sepsis screen is negative. Does the patient have a suspected source of infection? No. Patient's initial sepsis screen is negative. Care prior to arrival: None. 12:39 Method Of Arrival: Ambulatory bp 12:39 Acuity: ALEJANDRA 2 bp Triage Assessment: 12:40 General: Appears in no apparent distress. uncomfortable, slender, Behavior is calm, bp cooperative, appropriate for age. Pain: Complains of pain in chest. EENT: No deficits noted. Neuro: Level of Consciousness is awake, alert, obeys commands, Oriented to person, place, time, situation, Appropriate for age. Cardiovascular: Chest pain is described as mild, quality is heaviness, is located in left anterior radiates to left arm(s) began 0300 episodes are continuous. Respiratory: Airway is patent Respiratory effort is even, unlabored, Respiratory pattern is regular, symmetrical. GI: No signs and/or symptoms were reported involving the gastrointestinal system. : No signs and/or symptoms were reported regarding the genitourinary system. Derm: No deficits noted. Musculoskeletal: Amputation of left leg. Circulation, motion, and sensation intact. Range of motion: intact in all extremities. Historical: - Allergies: 12:40 PENICILLINS; bp - Home Meds: 12:40 Aspirin Oral [Active]; Metformin Oral [Active]; bp - PMHx: 12:40 Diabetes - NIDDM; Hypertension; Cellulitis; bp - PSHx: 12:40 LLE AMPUTATION; bp - Immunization history:: Adult Immunizations up to date. - Social history:: Smoking status: Patient/guardian denies using tobacco. - Ebola Screening: : Patient negative for fever greater than or equal to 101.5 degrees Fahrenheit, and additional compatible Ebola Virus Disease symptoms Patient denies exposure to infectious person Patient denies travel to an Ebola-affected area in the 21 days before illness onset No symptoms or risks identified at this time. - Family history:: not pertinent. Screenin:05 Abuse screen: Denies threats or abuse. Denies injuries from another. Nutritional ss screening: No deficits noted. Tuberculosis screening: Never had TB. Fall Risk None identified. Assessment: 13:05 General: Appears in no apparent distress. comfortable, Behavior is calm, cooperative, ss Denies fever, feeling ill, fatigue, chills. Pain: Complains of pain in chest Pain radiates to left arm Pain currently is 5 out of 10 on a pain scale. Pain began 0300 this morning Is continuous. Neuro: Level of Consciousness is awake, alert, obeys commands, Oriented to person, place, time, situation. Cardiovascular: Capillary refill < 3 seconds is brisk in bilateral fingers. Respiratory: Airway is patent Respiratory effort is even, unlabored, Respiratory pattern is regular, symmetrical, Breath sounds are clear bilaterally. Denies cough, shortness of breath pain with respiration, pain with cough, pain with movement. GI: No signs and/or symptoms were reported involving the gastrointestinal system. Abdomen is non-distended. : No signs and/or symptoms were reported regarding the genitourinary system. EENT: Oral mucosa is moist. Throat is clear. Derm: wound vac noted to coccyx region. Pt is currently being seen by Dr. Amor in wound healing center at our facility. 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 ss 15:13 Reassessment: Patient appears in no apparent distress at this time. Patient and/or ss family updated on plan of care and expected duration. Pain level reassessed. Patient is alert, oriented x 3, equal unlabored respirations, skin warm/dry/pink. Patient states feeling better. Patient states symptoms have improved. 15:26 Reassessment: No changes from previously documented assessment. Report called to vivien Carlson RN. Vital Signs: 12:40 Weight 51.26 kg; Height 5 ft. 2 in. (157.48 cm); bp 12:58 BP 147 / 79; Pulse 69; Resp 17; Temp 97.2; Pulse Ox 100% on R/A; sg 14:36 BP 144 / 87; Pulse 68; Resp 18; Pulse Ox 99% on R/A; jb1 15:13 BP 144 / 83; Pulse 66; Resp 16; Pulse Ox 98% on R/A; Pain 2/10; ss 12:40 Body Mass Index 20.67 (51.26 kg, 157.48 cm) bp ED Course: 12:23 Patient arrived in ED. mr 12:23 None, None is Private Physician. mr 12:27 Malcolm Beatty, RN is Primary Nurse. bp 12:29 Wally Miles MD is Attending Physician. marj 12:40 Triage completed. bp 12:40 Arm band placed on. bp 12:47 Initial lab(s) drawn, by nh, sent to lab. Inserted saline lock: 22 gauge in right jb1 antecubital area, using aseptic technique. Blood collected. 13:05 Patient has correct armband on for positive identification. Bed in low position. Call ss light in reach. Side rails up X 1. lining vamper on. Pulse ox on. NIBP on. 13:05 Patient maintains SpO2 saturation greater than 95% on room air. ss 13:13 Mario Saleh DO is Hospitalizing Provider. marj 13:29 X-ray completed. Portable x-ray completed in exam room. Patient tolerated procedure sw well. 13:30 XRAY Chest (1 view) In Process Unspecified. EDMS 13:33 EKG done, by breeder service technician. reviewed by Wally Miles MD. sm3 14:03 Mahesh Sotelo MD is Hospitalizing Provider. marj 15:27 No provider procedures requiring assistance completed. Patient admitted, IV remains in ss place. Administered Medications: 13:17 Drug: NS 0.9% 1000 ml Route: IV; Rate: 75 ml/hr; Site: right antecubital; ss 13:35 Follow up: IV Status: Infusion continued upon admission ss 13:17 Drug: Aspirin 162 mg Route: PO; ss 15:34 Follow up: Response: No adverse reaction ss 13:17 Drug: Zofran 4 mg Route: IVP; Site: right antecubital; ss 15:34 Follow up: Response: No adverse reaction ss 13:17 Drug: Lopressor 25 mg Route: PO; ss 15:33 Follow up: Response: No adverse reaction ss 13:19 Drug: Pepcid 20 mg Route: IVP; Site: right antecubital; ss 15:32 Follow up: Response: No adverse reaction ss 13:21 Drug: morphine 2 mg Route: IVP; Site: right antecubital; ss 15:33 Follow up: Response: No adverse reaction; Pain is decreased ss 13:26 Drug: Lovenox 50 mg Route: Sub-Q; Site: left lower abdomen; ss 15:33 Follow up: Response: No adverse reaction ss 15:12 Not Given (patient's pain improved greatly after initial dose. ): morphine 2 mg IVP oncess Point of Care Testing: Blood Glucose: 15:19 Blood Glucose: 145 mg/dL; ss Ranges: Outcome: 13:14 Decision to Hospitalize by Provider. [facility] 15:27 Admitted to Tele room 405, with chart. 15:27 Condition: good 15:27 Instructed on the need for admit. 15:35 Patient left the ED. ss Signatures: Dispatcher [employer] Maciej Chairez1 Teodoro Tyler, RN RN Wally Berrios MD MD cha Rivera, Soraida Frausto RN RN Kimberlyn Hemphill Brian, COURTNEY RN Jacinta Garcia 3
[2018-04-23] MEDS ORDERED: ASPIRIN 81 MG CHEWABLE TABLET ONE (13:20)
[2018-04-23] MEDS ORDERED: MORPHINE 4 MG/ML SYR ONE (13:20)
[2018-04-23] MEDS ORDERED: NA CHLORIDE 0.9% 1,000 ML ONE (13:21)
[2018-04-23] MEDS ORDERED: FAMOTIDINE 20 MG/2 ML VIAL IV ONE (13:21)
[2018-04-23] MEDS ORDERED: METOPROLOL TAR 25 MG TAB ONE (13:21)
[2018-04-23] MEDS ORDERED: ONDANSETRON 4 MG/2 ML VIAL ONE (13:21)
[2018-04-23] MEDS ORDERED: ENOXAPARIN 60 MG/0.6 ML SQ ONE (13:22)
[2018-04-23] MEDS ORDERED: ACETAMINOPHEN 500 MG TAB PO PRN (13:28)
[2018-04-23] MEDS ORDERED: ONDANSETRON 4 MG/2 ML VIAL IV PRN (13:28)
[2018-04-23] MEDS: ENOXAPARIN 40 MG/0.4 ML SQ SCH (14:00)
--- NOTE | 2018-04-23 14:13 | RAD REPORT ---
EXAM DESCRIPTION: Rohn[place] Single View04/23/2018 1:36 pm CLINICAL HISTORY: Chest pain COMPARISON: February 2018 FINDINGS: The lungs appear clear of acute infiltrate. The heart is normal size IMPRESSION: No acute abnormalities displayed
--- NOTE | 2018-04-23 15:05 | EKG ---
Test Date: 2018-04-23 Test Time: 13:23:05 High Pressure Kettle Operator: MALINI MEASUREMENT RESULTS: Intervals: Rate: 70 VT: 138 QRSD: 100 QT: 396 QTc: 427 [place]: P: 13 VT: 138 QRS: -4 T: 16 INTERPRETIVE STATEMENTS: Sinus rhythm with occasional premature ventricular complexes Otherwise normal ECG Compared to ECG 02/20/2018 11:51:46 Ventricular premature complex(es) now present Electronically Signed On 04-23-18 15:04:21 CDT by Johnie Rondon
[2018-04-23 16:17] LABS: Urine Blood NEGATIVE (NEG); Urine Glucose NEGATIVE (NEG); Urine Protein 1+ (NEG); Urine pH 5.5 (5.0-7.0)
[2018-04-23] MEDS: INSULIN -REGULAR HUMAN 50 UNIT/0.5 ML ML SQ SCH ×2 (16:30→21:43)
[2018-04-23 17:24] LABS: CKMB Creatine Kinase MB < 1.0 ng/mL (0.3-3.6); Creatine Phosphokinase 25 U/L (39-308); Troponin I < 0.02 ng/mL (0.0-0.045)
[2018-04-23 20:50] VITALS: BMI 20.6
--- NOTE | 2018-04-23 20:55 | P.HP ---
Certification for Inpatient Patient admitted to: Observation With expected LOS: <2 Midnights Practitioner: I am a practitioner with admitting privileges, knowledge of patient current condition, hospital course, and medical plan of care. Services: Services provided to patient in accordance with Admission requirements found in Title 42 Section 412.3 of the Code of Federal Regulations Patient History Date of Service: 04/23/18 Reason for admission: Chest pain History of Present Illness: This is a 67 year old male with a hx of DM, HTN presented with complaints of chest pain that started this morning and radiated across his chest and the the back, left arm and left leg along with left arm numbness/ tingling. Denies any SOB, palpitations, dizziness, MORALEZ, lightheadedness, excessive sweating, N/V. 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 Denies any pain in that area at this time. Allergies Penicillins Allergy (Intermediate, Verified 09/13/16 12:55) Rash Home Medications: Aspirin [Aspirin EC 81 MG] 81 mg PO DAILY #90 tablet. 09/27/17 Ferrous Sulfate [Ferrous Sulfate*] 325 mg PO DAILY #90 tab 09/27/17 Metformin HCl [Metformin HCl ER] 1,000 mg PO BID 12/17/17 Metoprolol Tartrate [Lopressor*] 12.5 mg PO BID 6AM 6PM #60 tab 12/20/17 Gabapentin 300 mg PO TID 04/23/18 - Past Medical/Surgical History Has patient received pneumonia vaccine in the past: No Diabetic: Yes -: Diabetes mellitus type 2 -: HX of Tobacco abuse -: Hx of Alcohol use -: Diabetic neuropathy -: Left Knee Surgery -: Left BKA -: surg wnd on coccox Psychosocial/ Personal History: He is , has 4 children. He is disabled. - Family History Father -: Heart disease, Hypertension, Diabetes, Cancer Mother -: Diabetes, Stroke - Social History Smoking Status: Former smoker Alcohol use: No CD- Drugs: No Caffeine use: Yes Place of Residence: Home Review of Systems General: Unremarkable Eyes: Unremarkable ENT: Unremarkable Cardiovascular: Chest Pain, As per HPI Gastrointestinal: Unremarkable Genitourinary: Unremarkable Integumentary: Other (Patient with wound on coccyx and portable wound vac in place), As per HPI Physical Examination - Vital Signs Temperature: 98.2 F Blood Pressure: 148/67 Pulse: 73 Respirations: 20 Pulse Ox (%): 99 - Physical Exam General: Alert, In no apparent distress, Oriented x3 HEENT: Atraumatic Neck: Supple, JVD not distended Respiratory: Clear to auscultation bilaterally, Normal air movement Cardiovascular: Normal pulses, Regular rate/rhythm, Normal S1 S2 Gastrointestinal: Normal bowel sounds, Soft and benign Musculoskeletal: Other ( Left BKA) Integumentary: Pressure ulcer (Wound vac in place, with surrounding skin breakdown (next to tape); no redness or warmth noted. ) Neurological: Normal speech - Studies Laboratory Data (last 24 hrs) 04/23/18 12:40: PT 11.6, INR 0.98 04/23/18 12:40: WBC 10.4, Hgb 11.5 L, Hct 34.6 L, Plt Count 163 04/23/18 12:40: Sodium 137, Potassium 4.2, BUN 21 H, Creatinine 1.00, Glucose 221 H, Magnesium 1.8, Total Bilirubin 0.3, AST 56 H, ALT 60, Alkaline Phosphatase 356 H, Lipase 981 H Assessment and Plan - Plan This is a 67 year old diabetic male with hx of HTN with: 1) Chest pain, rule out ACS: Troponins negative so far, EKG with non specific changes. Conitnue IVF, pain control and monitor troponins. On tele floor. 2) Coccyx pressure ulcer POA w/ wound vac in place: per patient, he has a portable vac but he did not bring enamel machine operator so he cannot leave it on. he states he does this often and forgets to charge the vac. He is supposed to be getting it changed tomorrow with Dr. Amor. Will consult Dr. Amor to see patient here for wound care. 3) Left BKA: Stable 4) HTN: Resume home medications 5) DM: Sliding scale w/ accucheck Plan: Observe for 24 hrs, Dr. Amor consulted for wound care (for pressure ulcer ); Likely discharge home tomorrow after wound care if symptoms resolve/improve. - Advance Directives Does patient have a Living Will: No Does patient have a Durable POA for Healthcare: No
[2018-04-23] MEDS: NITROGLYCERIN 0.4 MG/TAB SL PRN ×3 (21:54→22:16)
[2018-04-24 01:23] LABS: CKMB Creatine Kinase MB < 1.0 ng/mL (0.3-3.6); Creatine Phosphokinase 27 U/L (39-308); Troponin I < 0.02 ng/mL (0.0-0.045)
[2018-04-24 05:28] LABS: Absolute Lymphocytes (CBC) 1.9 K/uL (0.7-4.9); Absolute Monocytes 0.6 K/uL (0.1-1.3); Absolute Neutrophil 3.5 K/uL (1.8-8.0); Basophils % 0.9 % (0-1.3); Eosinophils % 2.6 % (0-4.4); Hematocrit 31.1 % (39.6-49.0); MCH 30.2 pg (27.0-35.0); MCV 88.7 fL (80-100); Monocytes % 9.3 % (3.3-12.3); RBC Red Blood Cell Count 3.51 M/uL (4.33-5.43)
[2018-04-24 05:44] LABS: Albumin 2.8 g/dL (3.4-5.0); Bilirubin Total 0.3 mg/dL (0.2-1.0); Magnesium 1.8 mg/dL (1.8-2.4); Potassium 4.2 mmol/L (3.5-5.1); Protein, Total 7.5 g/dL (6.4-8.2)
[2018-04-24] MEDS: INSULIN -REGULAR HUMAN 50 UNIT/0.5 ML ML SQ SCH ×2 (07:30→13:39)
[2018-04-24] MEDS ORDERED: INFLUENZA VACCINE (for 3y+) 0.5 ML DOSE IMVAC ONE (09:00)
[2018-04-24] MEDS ORDERED: MAGNESIUM SULFATE 1 gm IVPB 1 GM/100 ML BAG IV ONE (09:00)
[2018-04-24] MEDS ORDERED: ASPIRIN EC 81 MG TAB PO SCH (09:00)
[2018-04-24 09:04] VITALS: TEMP 98.2
[2018-04-24] MEDS ORDERED: REGADENOSON 0.4 MG/5 ML SYR IV ONE (09:36)
--- NOTE | 2018-04-24 11:46 | CON ---
Date of Consultation: 04/24/2018 Reason: Sacral decubitus. History Of Present Illness: The patient is a 67-year-old gentleman, who presented to the emergency r oom with acute onset of left chest pain going to the back, and left arm with some numbness and tingli ng. He was admitted to rule out NE. He does have wound VAC from an abscess that he had that was inc ised and drained several months ago, and he has not been using it properly, apparently he does not red[place] ve the adequate supplies at home and no sponges were present, and therefore I was asked to evaluate t he wound and help manage the wound while the patient was being ruled out for NE. He is awake, alert. Denies any chest pain at this time. No fever or chills. No purulent discharge. Review of Systems: Otherwise unremarkable. Medical History: Significant for diabetes, hypertension. Past Surgical History: Left BKA, incision and drainage of sacral decubitus. Allergies: PENICILLIN. Medications: Reviewed. Social History: The patient is a former smoker. Does not smoke or drink currently. Physical Examination: Vital Signs: Stable. He is afebrile. General: He is awake, alert, and oriented x3. Head and Neck: Cranial nerves 2 through 12 are grossly within normal limits. No neck masses. No JV D. Throat clear. Neck is supple. Chest: Clear. Heart: S1, S2. Abdomen: Soft. Extremity: Prosthesis in place in the left leg. Right leg nontender. Neurologic: Intact. Laboratory Data: White count is normal. There is no left shift. Electrolytes are reviewed. His tr oponin was less than 0.025. Please note, the sacral wound is approximately 3 x 4 cm. There is good granulation tissue. There is no surrounding erythema, warmth, or edema. Assessment: A 67-year-old gentleman with multiple medical problems, admitted to rule out NE and with a sacral decubitus. Recommendations: I will order the hospital wound VAC with collagenase, should be placed Sunday, , and Sunday, and upon discharge patient can follow up [facility]. SIGIFREDO/BGL Voice ID: [id number] Report ID: [id number]
[2018-04-24 12:44] VITALS: BP 147/77
--- NOTE | 2018-04-24 13:18 | RAD REPORT ---
EXAM DESCRIPTION: NM - Rest Stress Cardiac Imaging - 04/24/2018 1:10 pm CLINICAL HISTORY: CP Chest pain. COMPARISON: No comparisons TECHNIQUE: The patient was administered approximately 10mCi of Tc 99m Sestamibi prior to resting SPE CT imaging of the heart. The patient was then administered approximately 30 mCi of Tc 99m Sestamibi f ollowing exercise or pharmacologic stress. Multiplanar SPECT images were reviewed. FINDINGS: No stress induced ischemic defect is seen to suggest stress induced ischemia. No fixed def ect is seen to suggest hibernating myocardium or scarred myocardium. The end diastolic volume is 82 ml, the end systolic volume is 35 ml, and the ejection fraction is 58 %. IMPRESSION: No stress induced ischemia.
[2018-04-24] MEDS: ENOXAPARIN 40 MG/0.4 ML SQ SCH (13:40)
--- NOTE | 2018-04-24 14:07 | CON ---
History Of Present Illness: Mr. Matamoros is 67. He came to the hospital because of chest pain. He c naseem in some 12 hours after the chest pain and now it is more than 36 hours after he had chest pain. His EKGs and enzymes have all been normal. The patient does not have a history of heart disease. He has a history of heavy alcohol and tobacco use, history of diabetes. Several years ago, he had ampu tation of his left leg below the knee because of a diabetic ulcer. He did not have chest pain until he was given iron pills to take. He was told to take them on an empty stomach. After he takes them he gets nauseated and then he had some chest pain once. Presently, he uses no tobacco or alcohol. T he only medicine he is allergic to is penicillin. Outpatient Medications: Aspirin, iron sulfate, metformin, metoprolol, gabapentin. Physical Examination: General: He is 5 feet 2 inches, 113 pounds. Alert, oriented, pleasant. Lungs: Clear. Heart: Exam within normal limits. Extremities: He has a left [id number] amputation with a prosthesis. Right leg has diminished pu lses. There is no cyanosis, clubbing, or edema. Diagnostic Data: His electrocardiogram shows PVCs, otherwise it is normal. The chest x-ray is brittney l. Recommendation: I will recommend we do a stress test on him, see if he has underlying heart disease. He certainly has risk factors, but the pain he had was somewhat atypical, so we will proceed with any further testing based on the resul ts of his stress test. NEYDA Voice ID: [id number] Report ID: [id number]
--- NOTE | 2018-04-24 14:09 | TREADPHA ---
DX: CHEST PAIN Date of Study: 04/24/2018 Ht: 5 2 Wt: 113 lb 0 oz Consulting Physician: KEVON MEDICATIONS: TYLENOL, ASPIRIN, LOVENOX, NOVOLIN R, NITROSTAT HISTORY: 67 YEAR OLD MALE WITH COMPLAINTS OF CHEST PAIN. MEDICAL HISTORY OF DIABETES MELLITUS, HYPERTENSION, CELLULITIS AND LEFT LOWER EXTREMITY AMPUTATION. PHYSICIAL EXAMINATION: RESTING B.P.: 153/84 RESTING H.R.: 71 RESTING EKG: SINUS WITH PREMATURE VENTRICULAR COMPLEXES. PROTOCOL: LEXISCAN EXERCISE TIME: 3:30 B.P. AT PEAK STRESS: 140/81 IMPRESSION: LEXISCAN INJECTED. CARDIOLITE INJECTED PER PROTOCOL. SEE NUCLEAR MEDICINE REPORT. ONE PREMATURE VENTRICULAR COMPLEX PRIOR TO INJECTION. NO SUPRAVENTRICULAR TACHYCARDIA OR VENTRICULAR TACHYCARDIA. DENIED CHEST PAIN. NON DIAGNOSTIC EKG WITH LEXISCAN STRESS.
--- NOTE | 2018-04-24 14:19 | ECHO ---
HEIGHT: 5 ft 2 in WEIGHT: 113 lb 0 oz DATE OF STUDY: 04/24/[address]: Mahesh Sotelo MD 2-DIMENSIONAL: YES M.MODE: YES DOPPLER: YES COLOR FLOW: YES TDS: NO PORTABLE: NO DEFINITY: NO BUBBLE STUDY: NO DIAGNOSIS: CHEST PAIN CARDIAC HISTORY: CATHERIZATION: SURGERY: PROSTHETIC VALVE: PACEMAKER: MEASUREMENTS (cm) DIASTOLIC (NORMALS) SYSTOLIC (NORMALS) IVSd 0.9 (0.6-1.2) LA Diam 3.0 (1.9-4.0) LVEF 68% LVIDd 3.5 (3.5-5.7) LVIDs 2.2 (2.0-3.5) %FS 37% LVPWd 1.0 (0.6-1.2) Ao Diam 2.8 (2.0-3.7) 2 DIMENSIONAL ASSESSMENT: RIGHT ATRIUM: NORMAL LEFT ATRIUM: NORMAL RIGHT VENTRICLE: NORMAL LEFT VENTRICLE: NORMAL TRICUSPID VALVE: NORMAL MITRAL VALVE: MITRAL ANNULAR CALCIFICATION PULMONIC VALVE: NORMAL AORTIC VALVE: SCLEROSIS PERICARDIAL EFFUSION: NONE AORTIC ROOT: NORMAL LEFT VENTRICULAR WALL MOTION: NORMAL DOPPLER/COLOR FLOW: NORMAL COMMENTS: NORMAL LEFT VENTRICULAR EJECTION FRACTION. MITRAL ANNULAR CALCIFICATION. AORTIC SCLEROSIS WITH NO AORTIC STENOSIS OR AORTIC REGURGITATION. TECHNOLOGIST: Shawanda CHICAS
[2018-04-24 15:16] VITALS: O2SAT 99
--- NOTE | 2018-04-24 16:07 | P.DS ---
Admission Date: 04/23/18 Discharge Date: 04/24/18 Disposition: ROUTINE DISCHARGE Reason for Admission: Chest pain Consultations: Dr. Rondon, cardiology Dr. Amor, Wound care Brief History of Present Illness: This is a 67 year old male with a hx of DM, HTN presented with complaints of chest pain that started this morning and radiated across his chest and the the back, left arm and left leg along with left arm numbness/ tingling. Denies any SOB, palpitations, dizziness, MORALEZ, lightheadedness, excessive sweating, N/V. 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 Denies any pain in that area at this time. Admitted for chest pain, rule out ACS. Hospital Course: This is a 67 year old diabetic male with hx of HTN with: 1) Chest pain, rule out ACS: ACS was ruled out cardiac workup, including stress test, was normal. Patient was seen by cardiology. At the time of discharge patient denied any more chest pain and stated that his symptoms had resolved. 2) Coccyx pressure ulcer POA w/ wound vac in place: Patient seen by Dr. Amor, wound care. Wound addressed and patient will see wound care outpatient after discharge 3) Left BKA: Stable 4) HTN: Stable throughout hospitalization on home medications 5) DM: Stable throughout hospitalization on home medications Vital Signs/Physical Exam: Temp Pulse Resp BP Pulse Ox 98.2 F 71 18 147/77 H 100 04/24/18 12:00 04/24/18 12:00 04/24/18 12:00 04/24/18 12:00 04/24/18 12:00 General: Alert, In no apparent distress HEENT: Atraumatic, Normocephalic Neck: JVD not distended Respiratory: Clear to auscultation bilaterally, Normal air movement Cardiovascular: No edema, Normal pulses, Regular rate/rhythm, Normal S1 S2 Gastrointestinal: Normal bowel sounds, Soft and benign Musculoskeletal: Other (Left BKA) Integumentary: Pressure ulcer (Coccyx region, wound cleaned and dressed. ) Neurological: Normal speech Laboratory Data at Discharge: WBC 6.2 K/uL (4.3-10.9) D 04/24/18 04:50 Hgb 10.6 g/dL (13.6-17.9) L 04/24/18 04:50 Hct 31.1 % (39.6-49.0) L 04/24/18 04:50 Plt Count 136 K/uL (152-406) L 04/24/18 04:50 PT 11.6 SECONDS (9.5-12.5) 04/23/18 12:40 INR 0.98 04/23/18 12:40 Sodium 139 mmol/L (136-145) 04/24/18 04:50 Potassium 4.2 mmol/L (3.5-5.1) 04/24/18 04:50 BUN 21 mg/dL (7-18) H 04/24/18 04:50 Creatinine 1.00 mg/dL (0.55-1.3) 04/24/18 04:50 Glucose 162 mg/dL (74-106) H 04/24/18 04:50 Magnesium 1.8 mg/dL (1.8-2.4) 04/24/18 04:50 Total Bilirubin 0.3 mg/dL (0.2-1.0) 04/24/18 04:50 AST 50 U/L (15-37) H 04/24/18 04:50 ALT 52 U/L (12-78) 04/24/18 04:50 Alkaline Phosphatase 268 U/L (45-117) H 04/24/18 04:50 Troponin I < 0.02 ng/mL (0.0-0.045) 04/24/18 00:50 Triglycerides 97 mg/dL (<150) 04/24/18 04:50 Cholesterol 134 mg/dL (<200) 04/24/18 04:50 HDL Cholesterol 29 mg/dL (40-60) L 04/24/18 04:50 Cholesterol/HDL Ratio 4.62 04/24/18 04:50 Lipase 981 U/L (73-393) H 04/23/18 12:40 Home Medications: Aspirin [Aspirin EC 81 MG] 81 mg PO DAILY #90 tablet. 09/27/17 Ferrous Sulfate [Ferrous Sulfate*] 325 mg PO DAILY #90 tab 09/27/17 Metformin HCl [Metformin HCl ER] 1,000 mg PO BID 12/17/17 Metoprolol Tartrate [Lopressor*] 12.5 mg PO BID 6AM 6PM #60 tab 12/20/17 Gabapentin 300 mg PO TID 04/23/18 Collagenase [Santyl Ointment*] 1 appl TOP DAILY #1 tube 04/24/18 New Medications: Collagenase [Santyl Ointment*] 1 appl TOP DAILY #1 tube Patient Discharge Instructions: Please follow up with PCP within the next week. Diet: AHA Activity: Fall precautions Time spent managing pt's care (in minutes): 45
[2018-04-25] MEDS ORDERED: COLLAGENASE 30 GM OINTMENT TOP SCH (09:00)
== END 2018-04-24 16:37 | disposition home health service (06) ==
LOC: ER 12:20 → ERHOLD 13:15 → 4TH 15:26
PROVIDERS: ADMIT Family Medicine; ATTEND Family Medicine
DX: R07.9 Chest pain, unspecified (principal); L89.159 Pressure ulcer of sacral region, unspecified stage; E11.9 Type 2 diabetes mellitus without complications; I10 Essential (primary) hypertension; Z89.512 Acquired absence of left leg below knee
CPT/HCPCS: 36415; 71045; 78452; 80048; 80053; 80061; 80076; 81003; 82550; 82553; 82962; 83690; 83735; 83880; 84484; 85025; 85379; 85610; 93005; 93017; 93306; 96372; 96374; 96375; 99285; A9500; G0378; J1650; J2405; J2785; J3475; J3590; J7030

== ENCOUNTER 2018-07-10 21:41 | Emergency (ER) | payer OTHER ==
--- OUTSIDE RECORDS SUMMARY | 2018-07-10 21:43 | XMS REPORT ---
:1950 [facility] Address [address] [place] [address] Dr. Snyder [address] [place] [id number] Care Team Providers Name Role Phone Unavailable Unavailable Unavailable Problems This patient has no known problems. Allergies, Adverse Reactions, Alerts This patient has no known allergies or adverse reactions. Medications This patient has no known medications.
[2018-07-10 23:26] LABS: Absolute Lymphocytes (CBC) 1.5 K/uL (0.7-4.9); Absolute Monocytes 0.5 K/uL (0.1-1.3); Absolute Neutrophil 2.3 K/uL (1.8-8.0); Basophils % 0.4 % (0-1.3); Eosinophils % 2.4 % (0-4.4); Hematocrit 34.9 % (39.6-49.0); Lymphocytes % 34.4 % (15.3-44.8); MPV 10.2 fL (7.6-11.3); Monocytes % 11.3 % (3.3-12.3)
[2018-07-10 23:28] LABS: Protime INR 1.03
[2018-07-10] MEDS ORDERED: MORPHINE 4 MG/ML SYR ONE (23:42)
[2018-07-10 23:44] LABS: ALT/SGPT 57 U/L (12-78); AST/SGOT 60 U/L (15-37); Albumin 2.9 g/dL (3.4-5.0); Alkaline Phosphatase 180 U/L (45-117); BUN Blood Urea Nitrogen 25 mg/dL (7-18); Bicarbonate 24 mmol/L (21-32); Bilirubin Direct 0.2 mg/dL (0-0.2); Bilirubin Total 0.4 mg/dL (0.2-1.0); Glucose Level 146 mg/dL (74-106); Magnesium 1.5 mg/dL (1.8-2.4); NT PRO-BNP 1058 pg/mL (<125); Potassium 3.9 mmol/L (3.5-5.1); Protein, Total 7.6 g/dL (6.4-8.2); Sodium Level 139 mmol/L (136-145); Troponin (Emerg Dept Use Only) < 0.02 ng/mL (0.0-0.045)
[2018-07-11] MEDS ORDERED: MAGNESIUM SULFATE 1 gm IVPB 1 GM/100 ML BAG IV ONE (01:04)
--- NOTE | 2018-07-11 01:42 | EDPHYS ---
Physician Documentation [facility] Name: Amaury Matamoros Age: 67 yrs Sex: Male : 1950 Arrival Date: 07/10/2018 Time: 21:42 Bed 14 Private MD: ED Physician Wally Miles HPI: 07/11 00:00 This 67 yrs old Male presents to ER via Ambulatory with complaints of body pm1 aches. 00:00 Onset: The symptoms/episode began/occurred 4 day(s) ago. Associated signs and symptoms: pm1 Pertinent positives: chest pain, Pertinent negatives: cough, diarrhea, dysuria, fever, headache, shortness of breath, vomiting. Modifying factors: The patient symptoms are alleviated by nothing, the patient symptoms are aggravated by nothing. The patient has not experienced similar symptoms in the past. The patient has been recently seen by a physician: with different complaint(s), was given a prescription for antibiotics. Patient with complaints of generalized body aches for the past 4 days. Recently has been placed on two new antibiotics, Cipro and doxycycline. Patient also reports chest pain for the past 4 days. Historical: - Allergies: 07/10 21:52 PENICILLINS; ak1 - Home Meds: 21:52 metformin 1,000 mg oral tab 1 tab 2 times per day [Active]; gabapentin 300 mg oral cap ak1 1 cap 3 times per day [Active]; ferrous sulfate 325 mg (65 mg iron) Oral tab daily [Active]; metoprolol tartrate 25 mg Oral tab 1 tab 2 times per day [Active]; - PMHx: 21:52 Cellulitis; Diabetes - NIDDM; Hypertension; ak1 - PSHx: 21:52 LLE AMPUTATION; ak1 - Immunization history:: Adult Immunizations unknown. - Social history:: Smoking status: unknown. - Ebola Screening: : No symptoms or risks identified at this time. ROS: 07/11 00:00 Constitutional: Negative for fever, chills, and weight loss, Eyes: Negative for injury, pm1 pain, redness, and discharge, ENT: Negative for injury, pain, and discharge, Neck: Negative for injury, pain, and swelling, Respiratory: Negative for shortness of breath, cough, wheezing, and pleuritic chest pain, Abdomen/GI: Negative for abdominal pain, nausea, vomiting, diarrhea, and constipation, Back: Negative for injury and pain, : Negative for injury, bleeding, discharge, and swelling, MS/Extremity: Negative for injury and deformity, Skin: Negative for injury, rash, and discoloration. Neuro: Negative for headache, weakness, numbness, tingling, and seizure. Cardiovascular: Positive for chest pain, Negative for edema, palpitations. Exam: 00:00 Constitutional: This is a well developed, well nourished patient who is awake, alert, pm1 and in no acute distress. Head/Face: Normocephalic, atraumatic. Eyes: Pupils equal round and reactive to light, extra-ocular motions intact. Lids and lashes normal. Conjunctiva and sclera are non-icteric and not injected. Cornea within normal limits. Periorbital areas with no swelling, redness, or edema. ENT: Nares patent. No nasal discharge, no septal abnormalities noted. Tympanic membranes are normal and external auditory canals are clear. Oropharynx with no redness, swelling, or masses, exudates, or evidence of obstruction, uvula midline. Mucous membranes moist. Neck: Trachea midline, no thyromegaly or masses palpated, and no cervical lymphadenopathy. Supple, full range of motion without nuchal rigidity, or vertebral point tenderness. No Meningismus. 00:00 Cardiovascular: Regular rate and rhythm with a normal S1 and S2. No gallops, murmurs, or rubs. Normal PMI, no JVD. No pulse deficits. Respiratory: Lungs have equal breath sounds bilaterally, clear to auscultation and percussion. No rales, rhonchi or wheezes noted. No increased work of breathing, no retractions or nasal flaring. Abdomen/GI: Soft, non-tender, with normal bowel sounds. No distension or tympany. No guarding or rebound. No evidence of tenderness throughout. Back: No spinal tenderness. No costovertebral tenderness. Full range of motion. Skin: Warm, dry with normal turgor. Normal color with no rashes, no lesions, and no evidence of cellulitis. MS/ Extremity: Pulses equal, no cyanosis. Neurovascular intact. Full, normal range of motion. Left BKA 00:00 Chest/axilla: Inspection: normal, Palpation: tenderness, that is mild, of the anterior aspect of left upper chest, that partially reproduces the patient's complaints. 00:00 Neuro: Orientation: is normal, Motor: moves all fours. Vital Signs: 07/10 21:52 BP 183 / 96; Pulse 78; Resp 18; Temp 97.8(O); Pulse Ox 99% on R/A; Weight 55.79 kg (R); ak1 Height 5 ft. 1 in. (154.94 cm) (R); Pain 8/10; 22:30 BP 165 / 111; Pulse 75; Resp 18; Pulse Ox 99% on R/A; rr5 23:30 BP 155 / 103; Pulse 76; Resp 19; Pulse Ox 99% ; rr5 07/11 00:03 BP 145 / 112; Pulse 70; Resp 16; Pulse Ox 98% on R/A; mt 01:00 BP 151 / 102; Pulse 71; Resp 18; Pulse Ox 99% ; jd3 01:24 BP 147 / 92; Pulse 74; Resp 16; Pulse Ox 100% on R/A; mt 02:15 BP 141 / 70; Pulse 70; Resp 17; Pulse Ox 99% ; rr5 07/10 21:52 Body Mass Index 23.24 (55.79 kg, 154.94 cm) ak1 MDM: 07/10 22:13 Patient medically screened. pm1 07/11 01:09 Data reviewed: vital signs. Data interpreted: Pulse oximetry: on room air is 99 %. pm1 Interpretation: normal. Counseling: I had a detailed discussion with the patient and/or guardian regarding: the historical points, exam findings, and any diagnostic results supporting the discharge/admit diagnosis, lab results, radiology results, the need for outpatient follow up, to return to the emergency department if symptoms worsen or persist or if there are any questions or concerns that arise at home. 07/10 23:12 Order name: Basic Metabolic Panel pm1 07/10 23:12 Order name: CBC with Diff pm1 07/10 23:12 Order name: LFT's; Complete Time: 00:25 pm1 07/10 23:12 Order name: Magnesium; Complete Time: 00:25 pm1 07/10 23:12 Order name: NT PRO-BNP; Complete Time: 00:25 pm1 07/10 23:12 Order name: PT-INR; Complete Time: 00:25 pm1 07/10 23:12 Order name: Troponin (emerg Dept Use Only); Complete Time: 00:25 pm1 07/10 23:12 Order name: XRAY Chest (1 view) pm1 07/10 23:12 Order name: EKG; Complete Time: 23:12 pm1 07/10 23:12 Order name: Cardiac monitoring; Complete Time: 23:22 pm1 07/10 23:12 Order name: Basic Metabolic Panel; Complete Time: 00:25 EDMS 07/10 23:12 Order name: CBC with Automated Diff; Complete Time: 00:25 EDMS 07/10 23:12 Order name: EKG - Nurse/Tech; Complete Time: 23:22 pm1 07/10 23:12 Order name: IV Saline Lock; Complete Time: 23:22 pm1 07/10 23:12 Order name: Labs collected and sent; Complete Time: 23:22 pm1 07/10 23:12 Order name: O2 Per Protocol; Complete Time: 23:22 pm1 07/10 23:12 Order name: O2 Sat Monitoring; Complete Time: 23:22 pm1 Administered Medications: 07/10 23:38 Drug: morphine 4 mg Route: IVP; Site: right forearm; rr5 07/11 01:43 Follow up: Response: No adverse reaction rr5 00:59 Drug: Magnesium Sulfate 1 grams Route: IVPB; Infused Over: 1 hrs; Site: right forearm; jd3 02:10 Follow up: Response: No adverse reaction; IV Status: Completed infusion; IV Intake: rr5 100ml Disposition: 07/11/18 01:41 Discharged to Home. Impression: Myalgia. - Condition is Stable. - Discharge Instructions: Musculoskeletal Pain. - Medication Reconciliation Form, Thank You Letter form. - Follow up: Emergency Department; When: As needed; Reason: Worsening of condition. Follow up: Private Physician; When: 2 - 3 days; Reason: Recheck today's complaints, Continuance of care, Re-evaluation by your physician. - Problem is new. - Symptoms have improved. Addendum: 07/16/2018 11:32 Co-signature as Attending Physician, Wally Miles MD I agree with the assessment and c red[place] plan of care. Signatures: Dispatcher [employer] Wally Martini MD MD cha Krenek, Amber RN RN ak1 Lionel Gutierrez, FOOD AND NUTRITION PROFESSOR FOOD AND NUTRITION PROFESSOR pm1 Hari Rodriguez RN RN jd3 Young Palumbo, RN RN rr5 Corrections: (The following items were deleted from the chart) 07/11 02:35 01:41 07/11/2018 01:41 Discharged to Home. Impression: Myalgia. Condition is Stable. rr5 Forms are Medication Reconciliation Form, Thank You Letter, Antibiotic Education, Prescription Opioid Use. Follow up: Emergency Department; When: As needed; Reason: Worsening of condition. Follow up: Private Physician; When: 2 - 3 days; Reason: Recheck today's complaints, Continuance of care, Re-evaluation by your physician. Problem is new. Symptoms have improved. pm1
--- NOTE | 2018-07-11 01:42 | ER ---
Nurse's Notes [facility] Name: Amaury Matamoros Age: 67 yrs Sex: Male : 1950 Arrival Date: 07/10/2018 Time: 21:42 Bed 14 Private MD: Diagnosis: Myalgia Presentation: 07/10 21:48 Presenting complaint: Patient states: body aches since Sunday. pt c/o left chest wall ak1 pain. pt started new medication cipro and doxycycline for blister on amputated left foot. Transition of care: patient was not received from another setting of care. Onset of symptoms is unknown. Risk Assessment: Do you want to hurt yourself or someone else? Patient reports no desire to harm self or others. Initial Sepsis Screen: Does the patient meet any 2 criteria? No. Patient's initial sepsis screen is negative. Does the patient have a suspected source of infection? No. Patient's initial sepsis screen is negative. Care prior to arrival: None. 21:48 Method Of Arrival: Ambulatory ak1 21:48 Acuity: ALEJANDRA 3 ak1 Triage Assessment: 21:52 General: Appears in no apparent distress. Behavior is cooperative. ak1 Historical: - Allergies: 21:52 PENICILLINS; ak1 - Home Meds: 21:52 metformin 1,000 mg oral tab 1 tab 2 times per day [Active]; gabapentin 300 mg oral cap ak1 1 cap 3 times per day [Active]; ferrous sulfate 325 mg (65 mg iron) Oral tab daily [Active]; metoprolol tartrate 25 mg Oral tab 1 tab 2 times per day [Active]; - PMHx: 21:52 Cellulitis; Diabetes - NIDDM; Hypertension; ak1 - PSHx: 21:52 LLE AMPUTATION; ak1 - Immunization history:: Adult Immunizations unknown. - Social history:: Smoking status: unknown. - Ebola Screening: : No symptoms or risks identified at this time. Screenin:20 Abuse screen: Denies threats or abuse. Denies injuries from another. Nutritional rr5 screening: No deficits noted. Tuberculosis screening: No symptoms or risk factors identified. Fall Risk None identified. Assessment: 22:00 General: Appears in no apparent distress. comfortable, Behavior is calm, cooperative, rr5 appropriate for age. Pain: Complains of pain in chest Pain does not radiate. Pain currently is 5 out of 10 on a pain scale. Quality of pain is described as aching, Pain began gradually, Is intermittent. Neuro: Level of Consciousness is awake, alert, obeys commands, Oriented to person, place, time, situation. Cardiovascular: Capillary refill < 3 seconds Patient's skin is warm and dry. Respiratory: Airway is patent Respiratory effort is even, unlabored, Respiratory pattern is regular, symmetrical. GI: No signs and/or symptoms were reported involving the gastrointestinal system. : No signs and/or symptoms were reported regarding the genitourinary system. EENT: Derm: Skin has blisters on left stump leg. Musculoskeletal: No signs and/or symptoms reported regarding the musculoskeletal system. 23:20 Reassessment: Patient appears in no apparent distress at this time. No changes from rr5 previously documented assessment. Patient and/or family updated on plan of care and expected duration. Pain level reassessed. 07/11 01:00 Reassessment: Patient appears in no apparent distress at this time. Patient and/or rr5 family updated on plan of care and expected duration. Pain level reassessed. no complaints made. Patient states feeling better. Patient states symptoms have improved. 01:43 Reassessment: Patient appears in no apparent distress at this time. Patient and/or rr5 family updated on plan of care and expected duration. Pain level reassessed. for discharge after the magnesium sulfate infusion. 02:20 Reassessment: Patient appears in no apparent distress at this time. Patient and/or rr5 family updated on plan of care and expected duration. Pain level reassessed. discharge instruction given and explained with no complaints made. Patient states feeling better. Patient states symptoms have improved. Vital Signs: 07/10 21:52 BP 183 / 96; Pulse 78; Resp 18; Temp 97.8(O); Pulse Ox 99% on R/A; Weight 55.79 kg (R); ak1 Height 5 ft. 1 in. (154.94 cm) (R); Pain 8/10; 22:30 BP 165 / 111; Pulse 75; Resp 18; Pulse Ox 99% on R/A; rr5 23:30 BP 155 / 103; Pulse 76; Resp 19; Pulse Ox 99% ; rr5 07/11 00:03 BP 145 / 112; Pulse 70; Resp 16; Pulse Ox 98% on R/A; mt 01:00 BP 151 / 102; Pulse 71; Resp 18; Pulse Ox 99% ; jd3 01:24 BP 147 / 92; Pulse 74; Resp 16; Pulse Ox 100% on R/A; mt 02:15 BP 141 / 70; Pulse 70; Resp 17; Pulse Ox 99% ; rr5 07/10 21:52 Body Mass Index 23.24 (55.79 kg, 154.94 cm) ak1 ED Course: 07/10 21:42 Patient arrived in ED. ag3 21:51 Triage completed. ak1 21:52 Arm band placed on Patient placed in an exam room, on a stretcher, Patient notified of ak1 wait time. 21:55 EKG completed in triage. Results shown to MD. rr5 22:00 hall monitor on. Pulse ox on. NIBP on. rr5 22:00 Patient has correct armband on for positive identification. Placed in gown. Bed in low rr5 position. Call light in reach. Side rails up X2. 22:13 Lionel Gutierrez, VIDAL is PHCP. pm1 22:13 Wally Miles MD is Attending Physician. pm1 22:18 Young Palumbo, COURTNEY is Primary Nurse. rr5 23:20 Inserted saline lock: 20 gauge in right forearm, using aseptic technique. Blood rr5 collected. 23:20 No provider procedures requiring assistance completed. Patient maintains SpO2 rr5 saturation greater than 95% on room air. 23:53 X-ray completed. Portable x-ray completed in exam room. Patient tolerated procedure kw well. 23:54 XRAY Chest (1 view) In Process Unspecified. EDMS 07/11 02:20 IV discontinued, intact, bleeding controlled, No redness/swelling at site. Pressure rr5 dressing applied. Administered Medications: 07/10 23:38 Drug: morphine 4 mg Route: IVP; Site: right forearm; rr5 07/11 01:43 Follow up: Response: No adverse reaction rr5 00:59 Drug: Magnesium Sulfate 1 grams Route: IVPB; Infused Over: 1 hrs; Site: right forearm; jd3 02:10 Follow up: Response: No adverse reaction; IV Status: Completed infusion; IV Intake: rr5 100ml Intake: 02:10 IV: 100ml; Total: 100ml. rr5 Outcome: 01:41 Discharge ordered by . pm1 02:25 Discharged to home ambulatory. rr5 02:25 Condition: stable 02:25 Discharge instructions given to patient, Instructed on discharge instructions, follow up and referral plans. Demonstrated understanding of instructions, follow-up care. 02:35 Patient left the ED. rr5 Signatures: Dispatcher [employer] EDCheyenne Camilo Amber, RN RN ak1 Lionel Gutierrez, ENVIRONMENTAL HEALTH NURSE ENVIRONMENTAL HEALTH NURSE pm1 Stephanie De Los Santos mt, Jonathon, RN RN jd3 Camila Leyva Raymond, RN RN rr5 Corrections: (The following items were deleted from the chart) 07/10 23:21 22:00 Derm: Skin has blisters on left foot rr5 rr5
[2018-07-11 03:06] VITALS: TEMP 97.8
[2018-07-11 03:14] VITALS: BP 141/70; O2SAT 99
--- NOTE | 2018-07-11 06:26 | EKG ---
Test Date: 2018-07-10 Test Time: 21:59:48 Esthetician: TRAE MEASUREMENT RESULTS: Intervals: Rate: 71 TX: 142 QRSD: 96 QT: 392 QTc: 425 [place]: P: 49 TX: 142 QRS: 39 T: 56 INTERPRETIVE STATEMENTS: Normal sinus rhythm Anterior infarct, age undetermined Abnormal ECG Compared to ECG 04/23/2018 13:23:05 Myocardial infarct finding now present Ventricular premature complex(es) no longer present Electronically Signed On 07-11-18 06:25:01 TRASH COLLECTOR TRUCK DRIVER by Johnie Rondon
--- NOTE | 2018-07-11 09:08 | RAD REPORT ---
EXAM DESCRIPTION: Rhonda Single View07/10/2018 11:54 pm CLINICAL HISTORY: Chest pain COMPARISON: April 2018 FINDINGS: The lungs appear clear of acute infiltrate. The heart is normal size IMPRESSION: No acute abnormalities displayed
== END 2018-07-11 02:35 | disposition home or self-care (01) ==
LOC: ER 21:41
DX: M79.10 Myalgia, unspecified site (principal); R94.31 Abnormal electrocardiogram [ECG] [EKG]; E11.9 Type 2 diabetes mellitus without complications; I10 Essential (primary) hypertension; Z79.84 Long term (current) use of oral hypoglycemic drugs; Z79.899 Other long term (current) drug therapy
CPT/HCPCS: 36415; 71045; 80048; 80076; 83735; 83880; 84484; 85025; 85610; 93005; 96365; 96375; 99285; J3475

== ENCOUNTER 2018-07-25 07:45 | Day surgery (SDC) | payer OTHER ==
[2018-07-24 09:44] LABS: Absolute Lymphocytes (CBC) 1.2 K/uL (0.7-4.9); Absolute Monocytes 0.4 K/uL (0.1-1.3); Absolute Neutrophil 2.4 K/uL (1.8-8.0); Basophils % 0.8 % (0-1.3); Hematocrit 39.9 % (39.6-49.0); Lymphocytes % 29.1 % (15.3-44.8); Monocytes % 9.8 % (3.3-12.3); RBC Red Blood Cell Count 4.47 M/uL (4.33-5.43)
[2018-07-24 09:55] LABS: Potassium 4.3 mmol/L (3.5-5.1)
--- OUTSIDE RECORDS SUMMARY | 2018-07-25 07:48 | XMS REPORT ---
:1950 [facility] Address [address] [place] [address] Dr. Snyder [address] [place] [id number] Care Team Providers Name Role Phone Unavailable Unavailable Unavailable Problems This patient has no known problems. Allergies, Adverse Reactions, Alerts This patient has no known allergies or adverse reactions. Medications This patient has no known medications.
[2018-07-25] MEDS ORDERED: BUPIVACAINE 0.5% PF 10 ML VIAL ONE (08:07)
[2018-07-25] MEDS ORDERED: NA CHLORIDE 0.9% 1,000 ML ONE (08:17)
[2018-07-25] MEDS ORDERED: CEFAZOLIN 1GM (PREMIX IV) 1 GM/50 ML BAG ONE (08:17)
[2018-07-25] MEDS ORDERED: FENTANYL CITR 100 MCG/2 ML ONE (08:46)
[2018-07-25] MEDS ORDERED: PROPOFOL 200 MG/20 ML VIAL IV ONE (08:46)
[2018-07-25] MEDS ORDERED: LIDOCAINE 2% MPF 5 ML VIAL ONE (08:47)
[2018-07-25] MEDS ORDERED: MIDAZOLAM HCL 2 MG/2 ML INJ ONE (08:47)
[2018-07-25] MEDS ORDERED: ONDANSETRON 4 MG/2 ML VIAL ONE (08:48)
[2018-07-25] MEDS ORDERED: ROCURONIUM 50 MG/5 ML VIAL IV ONE (09:09)
[2018-07-25] MEDS ORDERED: GLYCOPYRROLATE 0.2 MG/ML SYR ONE (09:43)
[2018-07-25] MEDS ORDERED: NEOSTIGMINE 1 MG/ML -5 ML SYRINGE ONE (10:11)
[2018-07-25] MEDS: MORPHINE 4 MG/ML SYR ONE ×2 (10:19→10:24)
[2018-07-25] MEDS ORDERED: MORPHINE 4 MG/ML SYR ONE (10:40)
[2018-07-25 11:06] VITALS: TEMP 98; O2SAT 98
[2018-07-25] MEDS ORDERED: HYDROCODONE/APAP 7.5/325 MG TAB ONE (11:20)
--- NOTE | 2018-07-25 11:29 | DS ---
Discharge Note: The patient will go to Day Surgery and home when stable. Disposition: Home. Condition: Stable. Discharge Instructions: Resume home medications and diet. Activity as tolerated. No heavy lifting. Remove outer dressing in 2 days. Shower. Keep wound clean and dry. Follow up wound healing brandie brice in 1 week. Call for appointment. Tylenol No. 2 one table p.o. q.4h. p.r.n. pain and Cipro 500 mg p.o. q.12h. SIGIFREDO/MELY Voice ID: [id number] Report ID: [id number]
--- NOTE | 2018-07-25 11:29 | OP ---
Date of Procedure: 07/25/2018 Surgeon: Noah Amor MD Preoperative Diagnosis: Nonhealing sacral decubitus. Postoperative Diagnosis: Nonhealing sacral decubitus. Procedure: Wide excision of sacral decubitus, 6 x 4 cm, with layered closure. Estimated Blood Loss: Minimal. Specimen: Sacral wound. Findings: As above. Anesthesia: General. Complications: None. Disposition: The patient tolerated the procedure in stable condition and was taken to Recovery in go od general condition. Procedure In Detail: The patient was brought to the OR and placed in supine position. General anest hesia was begun. The patient was placed in the prone position, prepped and draped in the usual steri le fashion. Marcaine 0.5% was infiltrated locally. A 15-blade was used to make a 6 x 4 cm incision and the entire wound was excised down through the subcutaneous tissue and sent to Pathology. The edg es of the wound were evaginated and epithelialized on the side and that was preventing the wound from healing. Subsequently, the granulation tissue was debrided on the base of the wound and a [place] q uarter-inch drain was placed and secured with 3-0 nylon. 3-0 chromic was used to approximate the sub cu tissue, and 3-0 nylon was used to close skin. Sterile dressing was applied. The patient was awakened and taken to Recovery in good general condition. SIGIFREDO/MELY Voice ID: [id number] Report ID: [id number]
[2018-07-25 11:49] VITALS: BP 164/77
== END 2018-07-25 11:49 | disposition home or self-care (01) ==
LOC: OR 07:45
PROVIDERS: ATTEND Surgery
PROC: 0JB70ZZ Excision of Back Subcutaneous Tissue and Fascia, Open Approach (ICD-10-PCS; principal; 2018-07-25 09:30)
DX: L89.153 Pressure ulcer of sacral region, stage 3 (principal); E11.622 Type 2 diabetes mellitus with other skin ulcer; I10 Essential (primary) hypertension; Z89.512 Acquired absence of left leg below knee; Z88.0 Allergy status to penicillin
CPT/HCPCS: 15931; 36415; 80048; 82962 ×2; 85025; 88304; J0690; J2250; J2405; J2704; J2710; J3010; J7030

== ENCOUNTER 2018-10-13 13:37 | Emergency (ER) | payer OTHER ==
--- OUTSIDE RECORDS SUMMARY | 2018-10-13 13:39 | XMS REPORT ---
:1950 [facility] Address [address] [place] [address] Dr. Snyder [address] [place] [id number] Care Team Providers Name Role Phone Unavailable Unavailable Unavailable Problems This patient has no known problems. Allergies, Adverse Reactions, Alerts This patient has no known allergies or adverse reactions. Medications This patient has no known medications.
[2018-10-13] MEDS ORDERED: MEPERIDINE HCL 50 MG/ML AMP ONE (15:01)
[2018-10-13 15:13] LABS: Urine Blood 1+ (NEG); Urine Glucose NEGATIVE (NEG); Urine Protein 3+ (NEG); Urine pH 5.5 (5.0-7.0)
[2018-10-13 15:26] LABS: Urine Bacteria <20 /HPF (NONE SEEN); Urine Culture Reflex Order NOT NEEDED; Urine Mucus 1+ /HPF (NONE SEEN)
[2018-10-13] MEDS ORDERED: ONDANSETRON 4 MG (ODT) TAB ONE (16:01)
--- NOTE | 2018-10-13 16:59 | RAD REPORT ---
EXAM DESCRIPTION: RAD - Pelvis - 10/13/2018 4:19 pm CLINICAL HISTORY: Fall, pelvic and low and right hip pain COMPARISON: None. TECHNIQUE: AP imaging of the pelvis was obtained. FINDINGS: No fracture of the bony pelvis. No fracture, dislocation or other acute hip joint finding. No significant SI joint findings. No signet soft tissue abnormality. IMPRESSION: Negative pelvis for acute or significant findings.
--- NOTE | 2018-10-13 16:59 | RAD REPORT ---
EXAM DESCRIPTION: RAD - Femur Right - 10/13/2018 4:19 pm CLINICAL HISTORY: Fall, right femur and leg pain COMPARISON: None. FINDINGS: No fracture, dislocation or periosteal reaction noted. No acute or suspicious bony finding . No air or foreign body in the soft tissues. Moderately dense arterial calcifications present. IMPRESSION: Negative right femur examination.
--- NOTE | 2018-10-13 17:02 | ER ---
Nurse's Notes [facility] Name: Amaury Matamoros Age: 67 yrs Sex: Male : 1950 Arrival Date: 10/13/2018 Time: 13:42 Bed 24 Private MD: Diagnosis: Contusion of right hip;Hematoma Presentation: 10/13 13:47 Presenting complaint: Patient states: On I fell and my right hip as hurt since la1 then, also I have been having pain all over my body since yesterday. Transition of care: patient was not received from another setting of care. Onset of symptoms was October 13, 2018. Risk Assessment: Do you want to hurt yourself or someone else? Patient reports no desire to harm self or others. Initial Sepsis Screen: Does the patient meet any 2 criteria? No. Patient's initial sepsis screen is negative. Does the patient have a suspected source of infection? No. Patient's initial sepsis screen is negative. Care prior to arrival: None. 13:47 Method Of Arrival: Wheelchair la1 13:47 Acuity: ALEJANDRA 3 la1 Historical: - Allergies: 13:47 PENICILLINS; la1 - Home Meds: 15:08 ferrous sulfate 325 mg (65 mg iron) Oral tab daily [Active]; gabapentin 300 mg Oral cap mg2 1 cap 3 times per day [Active]; metformin 1,000 mg Oral tab 1 tab 2 times per day [Active]; metoprolol tartrate 25 mg Oral tab 1 tab 2 times per day [Active]; - PMHx: 13:47 Cellulitis; Diabetes - NIDDM; Hypertension; la1 - PSHx: 15:08 left leg surgery/amuptation; mg2 - Immunization history:: Adult Immunizations up to date. - Social history:: Smoking status: Patient/guardian denies using tobacco, the patient reports quitting approximately 1 years ago. - Ebola Screening: : No symptoms or risks identified at this time. - Family history:: not pertinent. - Hospitalizations: : No recent hospitalization is reported. Screenin:55 Abuse screen: Denies threats or abuse. Denies injuries from another. Nutritional mg2 screening: No deficits noted. On. Nutritional screening: On no prescribed diet. Tuberculosis screening: No symptoms or risk factors identified. Fall Risk Fall in past 12 months (25 points). Assessment: 15:04 General: Appears in no apparent distress. comfortable, Behavior is calm, cooperative. mg2 Pain: Complains of pain in whole body Pain does not radiate. Pain currently is 5 out of 10 on a pain scale. Quality of pain is described as aching, Pain began gradually, 4 days ago Is intermittent. Neuro: Level of Consciousness is awake, alert, obeys commands, Oriented to person, place, time, situation. Cardiovascular: Capillary refill < 3 seconds Patient's skin is warm and dry. Respiratory: Airway is patent Respiratory effort is even, unlabored, Respiratory pattern is regular, symmetrical. GI: No signs and/or symptoms were reported involving the gastrointestinal system. : Urine is clear. EENT: No signs and/or symptoms were reported regarding the EENT system. Derm: Skin is intact, is healthy with good turgor, Skin is pink, warm \T\ dry. normal. Musculoskeletal: Reports pain in whole body. 17:13 Reassessment: Patient states feeling better. mg2 Vital Signs: 13:48 BP 130 / 80; Pulse 85; Resp 16; Temp 98.4; Pulse Ox 98% on R/A; Weight 59.87 kg; Height la1 5 ft. 1 in. (154.94 cm); Pain 10/10; 16:00 BP 160 / 70; Pulse 82; Resp 18; Pulse Ox 100% on R/A; Pain 0/10; mg2 17:13 BP 166 / 89; Pulse 80; Resp 18; Pulse Ox 100% on R/A; Pain 0/10; mg2 13:48 Body Mass Index 24.94 (59.87 kg, 154.94 cm) la1 ED Course: 13:42 Patient arrived in ED. mr 13:47 Triage completed. la1 13:48 Arm band placed on left wrist. la1 14:31 Jose Powell MD is Attending Physician. rn 14:48 Eber Peck RN is Primary Nurse. mg2 15:06 Patient has correct armband on for positive identification. mg2 15:06 No provider procedures requiring assistance completed. Patient did not have IV access mg2 during this emergency room visit. 16:19 XRAY Pelvis In Process Unspecified. EDMS 16:19 XRAY Femur RIGHT In Process Unspecified. EDMS Administered Medications: 14:54 Drug: Demerol 50 mg Route: IM; Site: right gluteus; mg2 16:13 Follow up: Response: No adverse reaction; Marked relief of symptoms; Pain is decreased mg2 16:00 Drug: Zofran 4 mg Route: PO; mg2 17:12 Follow up: Response: No adverse reaction; Marked relief of symptoms mg2 Outcome: 17:01 Discharge ordered by . rn 17:13 Discharged to home ambulatory. mg2 17:13 Condition: stable 17:13 Discharge instructions given to patient, Instructed on discharge instructions, follow up and referral plans. medication usage, Demonstrated understanding of instructions, follow-up care, medications, Prescriptions given X 2. 17:14 Patient left the ED. mg2 Signatures: Dispatcher [employer] Mare Gill Roman, MD MD rn Attema, Lee, RN RN la1 Eber Peck RN RN mg2
--- NOTE | 2018-10-13 17:02 | EDPHYS ---
Physician Documentation [facility] Name: Amaury Matamoros Age: 67 yrs Sex: Male : 1950 Arrival Date: 10/13/2018 Time: 13:42 Bed 24 Private MD: ED Physician Jose Powell HPI: 10/13 15:03 This 67 yrs old Male presents to ER via Wheelchair with complaints of Pain All rn Over. 15:03 The patient or guardian reports an injury, pain. The complaints affect the right hip. rn Onset: The symptoms/episode began/occurred 3 day(s) ago. Modifying factors: The symptoms are alleviated by remaining still, the symptoms are aggravated by any movement, weight bearing. Severity of symptoms: At their worst the symptoms were moderate, in the emergency department the symptoms are unchanged. The patient has not experienced similar symptoms in the past. REports fell 3 days ago, fell onto right hip, reports swelling and pain since then, no other injury. Since yesterday has been having pain all over with myalgias. No fever. NO cough/sob/vomiting/diarrhea. Reports urine has smelled strong "for awhile". Here mainly for hip today.. Historical: - Allergies: 13:47 PENICILLINS; la1 - Home Meds: 15:08 ferrous sulfate 325 mg (65 mg iron) Oral tab daily [Active]; gabapentin 300 mg Oral cap mg2 1 cap 3 times per day [Active]; metformin 1,000 mg Oral tab 1 tab 2 times per day [Active]; metoprolol tartrate 25 mg Oral tab 1 tab 2 times per day [Active]; - PMHx: 13:47 Cellulitis; Diabetes - NIDDM; Hypertension; la1 - PSHx: 15:08 left leg surgery/amuptation; mg2 - Immunization history:: Adult Immunizations up to date. - Social history:: Smoking status: Patient/guardian denies using tobacco, the patient reports quitting approximately 1 years ago. - Ebola Screening: : No symptoms or risks identified at this time. - Family history:: not pertinent. - Hospitalizations: : No recent hospitalization is reported. ROS: 15:03 Constitutional: Negative for fever, chills, and weight loss, Eyes: Negative for injury, rn pain, redness, and discharge, Neck: Negative for injury, pain, and swelling, Cardiovascular: Negative for chest pain, palpitations, and edema, Respiratory: Negative for shortness of breath, cough, wheezing, and pleuritic chest pain, Abdomen/GI: Negative for abdominal pain, vomiting, diarrhea, and constipation, MS/Extremity: + right hip pain and swelling. Skin: Negative for injury, rash, and discoloration, Neuro: Negative for headache, weakness, numbness, tingling, and seizure. Exam: 15:03 Constitutional: This is a well developed, well nourished patient who is awake, alert, rn and in no acute distress. Head/Face: Normocephalic, atraumatic. Eyes: Pupils equal round and reactive to light, extra-ocular motions intact. Lids and lashes normal. Conjunctiva and sclera are non-icteric and not injected. Cornea within normal limits. Periorbital areas with no swelling, redness, or edema. ENT: MMM Back: No spinal tenderness. No costovertebral tenderness. Full range of motion. Skin: Warm, dry MS/ Extremity: Pulses equal, no cyanosis. Neurovascular intact. Painful ROM right hip with lateral contusion/hematoma. Neuro: Awake and alert, GCS 15, oriented to person, place, time, and situation. Cranial nerves II-XII grossly intact. Motor strength 5/5 in all extremities. Sensory grossly intact. Vital Signs: 13:48 BP 130 / 80; Pulse 85; Resp 16; Temp 98.4; Pulse Ox 98% on R/A; Weight 59.87 kg; Height la1 5 ft. 1 in. (154.94 cm); Pain 10/10; 16:00 BP 160 / 70; Pulse 82; Resp 18; Pulse Ox 100% on R/A; Pain 0/10; mg2 17:13 BP 166 / 89; Pulse 80; Resp 18; Pulse Ox 100% on R/A; Pain 0/10; mg2 13:48 Body Mass Index 24.94 (59.87 kg, 154.94 cm) la1 MDM: 14:31 Patient medically screened. rn 17:00 Differential diagnosis: hip fracture, intertrochanteric fracture, femoral neck rn fracture, bursitis, arthritis, strain, hematoma. Data reviewed: vital signs, nurses notes, lab test result(s), radiologic studies, plain films, and as a result, I will discharge patient. Counseling: I had a detailed discussion with the patient and/or guardian regarding: the historical points, exam findings, and any diagnostic results supporting the discharge/admit diagnosis, lab results, radiology results, the need for outpatient follow up, to return to the emergency department if symptoms worsen or persist or if there are any questions or concerns that arise at home. Response to treatment: the patient's symptoms have mildly improved after treatment, and as a result, I will discharge patient. Special discussion: I discussed with the patient/guardian in detail that at this point there is no indication for admission to the hospital. It is understood, however, that if the symptoms persist or worsen the patient needs to return immediately for re-evaluation. 10/13 13:48 Order name: Flu; Complete Time: 15:38 la1 10/13 14:39 Order name: Urine Microscopic Only rn 10/13 14:39 Order name: XRAY Pelvis; Complete Time: 17:00 rn 10/13 14:39 Order name: XRAY Femur RIGHT; Complete Time: 17:00 rn 10/13 14:41 Order name: Urine Microscopic Only; Complete Time: 15:38 EDMS 10/13 15:03 Order name: Urine Dipstick--Ancillary (enter results); Complete Time: 15:38 eb 10/13 14:39 Order name: Urine Dipstick-Ancillary (obtain specimen); Complete Time: 15:08 rn Administered Medications: 14:54 Drug: Demerol 50 mg Route: IM; Site: right gluteus; mg2 16:13 Follow up: Response: No adverse reaction; Marked relief of symptoms; Pain is decreased mg2 16:00 Drug: Zofran 4 mg Route: PO; mg2 17:12 Follow up: Response: No adverse reaction; Marked relief of symptoms mg2 Disposition: 10/13/18 17:01 Discharged to Home. Impression: Contusion of right hip, Hematoma. - Condition is Stable. - Discharge Instructions: Contusion, Hematoma. - Prescriptions for Tylenol- Codeine #3 300-30 mg Oral Tablet - take 1 tablet by ORAL route every 6 hours As needed; 15 tablet. Cyclobenzaprine 5 mg Oral Tablet - take 1 tablet by ORAL route 3 times per day As needed; 15 tablet. - Medication Reconciliation Form, Thank You Letter, Antibiotic Education, Prescription Opioid Use form. - Follow up: Private Physician; When: As needed; Reason: Recheck today's complaints, Re-evaluation by your physician. - Problem is new. - Symptoms have improved. Signatures: Dispatcher [employer] EDJose Arshad MD MD rn Attema, Lee, RN RN la1 Eber Peck RN RN mg2 Corrections: (The following items were deleted from the chart) 17:14 17:01 10/13/2018 17:01 Discharged to Home. Impression: Contusion of right hip; mg2 Hematoma. Condition is Stable. Forms are Medication Reconciliation Form, Thank You Letter, Antibiotic Education, Prescription Opioid Use. Follow up: Private Physician; When: As needed; Reason: Recheck today's complaints, Re-evaluation by your physician. Problem is new. Symptoms have improved. rn
[2018-10-13 18:01] VITALS: TEMP 98.4
[2018-10-13 18:02] VITALS: O2SAT 100
[2018-10-13 18:04] VITALS: BP 166/89
== END 2018-10-13 17:14 | disposition home or self-care (01) ==
LOC: ER 13:37
DX: S70.01XA Contusion of right hip, initial encounter (principal); W19.XXXA Unspecified fall, initial encounter; E11.9 Type 2 diabetes mellitus without complications; I10 Essential (primary) hypertension; Z79.84 Long term (current) use of oral hypoglycemic drugs; Z88.0 Allergy status to penicillin
CPT/HCPCS: 87804 ×2; 72170; 73552; 96372; 99283; J2175; 81003; 81015

== ENCOUNTER 2018-12-26 15:28 | Emergency (ER) | payer OTHER ==
--- OUTSIDE RECORDS SUMMARY | 2018-12-26 15:30 | XMS REPORT ---
:1950 [facility] Address [address] [place] [address] Dr. Snyder [address] [place] [id number] Care Team Providers Name Role Phone Unavailable Unavailable Unavailable Problems This patient has no known problems. Allergies, Adverse Reactions, Alerts This patient has no known allergies or adverse reactions. Medications This patient has no known medications.
--- NOTE | 2018-12-26 16:43 | EDPHYS ---
Physician Documentation [facility] Name: Amaury Matamoros Age: 68 yrs Sex: Male : 1950 Arrival Date: 12/26/2018 Time: 15:32 Bed 17 Private MD: ED Physician Wally Miles HPI: 12/26 16:32 This 68 yrs old Male presents to ER via Ambulatory with complaints of Leg and marj Foot numbness. 16:32 The patient presents with pain, that is chronic. The complaints affect the right foot. marj Context: The problem was sustained at an unknown location. Onset: The symptoms/episode began/occurred 2 day(s) ago. Modifying factors: The symptoms are alleviated by elevation of extremity, the symptoms are aggravated by movement, wearing shoes. Associated signs and symptoms: The patient has no apparent associated signs or symptoms. The patient has experienced similar episodes in the past, several times. Historical: - Allergies: 15:53 PENICILLINS; ch - Home Meds: 15:53 metformin 1,000 mg Oral tab 1 tab 2 times per day [Active]; metoprolol tartrate 25 mg ch Oral tab 1 tab 2 times per day [Active]; gabapentin 300 mg Oral cap 1 cap 3 times per day [Active]; ferrous sulfate 325 mg (65 mg iron) Oral tab daily [Active]; other unknown pills for my leg and blood pressure. [Active]; - PMHx: 15:53 Cellulitis; Diabetes - NIDDM; Hypertension; ch - PSHx: 15:53 left leg surgery/amuptation; ch - Immunization history:: Adult Immunizations up to date. - Social history:: Smoking status: Patient uses tobacco products, denies chronic smoking, but will smoke occasionally. - Ebola Screening: : Patient negative for fever greater than or equal to 101.5 degrees Fahrenheit, and additional compatible Ebola Virus Disease symptoms Patient denies exposure to infectious person Patient denies travel to an Ebola-affected area in the 21 days before illness onset No symptoms or risks identified at this time. - Family history:: not pertinent. ROS: 16:32 Constitutional: Negative for fever, chills, and weight loss, Eyes: Negative for injury, marj pain, redness, and discharge, ENT: Negative for injury, pain, and discharge, Neck: Negative for injury, pain, and swelling, Cardiovascular: Negative for chest pain, palpitations, and edema, Respiratory: Negative for shortness of breath, cough, wheezing, and pleuritic chest pain, Abdomen/GI: Negative for abdominal pain, nausea, vomiting, diarrhea, and constipation, Back: Negative for injury and pain, : Negative for injury, bleeding, discharge, and swelling, Skin: Negative for injury, rash, and discoloration, Neuro: Negative for headache, weakness, numbness, tingling, and seizure, Psych: Negative for depression, anxiety, suicide ideation, homicidal ideation, and hallucinations, Allergy/Immunology: Negative for hives, rash, and allergies, Endocrine: Negative for neck swelling, polydipsia, polyuria, polyphagia, and marked weight changes, Hematologic/Lymphatic: Negative for swollen nodes, abnormal bleeding, and unusual bruising. 16:32 MS/extremity: Positive for abrasion, pain, paresthesias, tenderness, of the ball of right foot. Exam: 16:32 Constitutional: This is a well developed, well nourished patient who is awake, alert, marj and in no acute distress. Head/Face: Normocephalic, atraumatic. Eyes: Pupils equal round and reactive to light, extra-ocular motions intact. Lids and lashes normal. Conjunctiva and sclera are non-icteric and not injected. Cornea within normal limits. Periorbital areas with no swelling, redness, or edema. ENT: Nares patent. No nasal discharge, no septal abnormalities noted. Tympanic membranes are normal and external auditory canals are clear. Oropharynx with no redness, swelling, or masses, exudates, or evidence of obstruction, uvula midline. Mucous membranes moist. Neck: Trachea midline, no thyromegaly or masses palpated, and no cervical lymphadenopathy. Supple, full range of motion without nuchal rigidity, or vertebral point tenderness. No Meningismus. Chest/axilla: Normal chest wall appearance and motion. Nontender with no deformity. No lesions are appreciated. Cardiovascular: Regular rate and rhythm with a normal S1 and S2. No gallops, murmurs, or rubs. Normal PMI, no JVD. No pulse deficits. Respiratory: Lungs have equal breath sounds bilaterally, clear to auscultation and percussion. No rales, rhonchi or wheezes noted. No increased work of breathing, no retractions or nasal flaring. Abdomen/GI: Soft, non-tender, with normal bowel sounds. No distension or tympany. No guarding or rebound. No evidence of tenderness throughout. Back: No spinal tenderness. No costovertebral tenderness. Full range of motion. Male : Normal genitalia with no discharge or lesions. Skin: Warm, dry with normal turgor. Normal color with no rashes, no lesions, and no evidence of cellulitis. Neuro: Awake and alert, GCS 15, oriented to person, place, time, and situation. Cranial nerves II-XII grossly intact. Motor strength 5/5 in all extremities. Sensory grossly intact. Cerebellar exam normal. Normal gait. Psych: Awake, alert, with orientation to person, place and time. Behavior, mood, and affect are within normal limits. 16:32 Musculoskeletal/extremity: ROM: full active range of motion, full passive range of motion, Circulation is intact in all extremities. decreased sensation, DVT Exam: no swelling, no tenderness, negative Homans' sign noted on exam, no appreciated bluish discoloration, no erythema, no increased warmth, pain. Vital Signs: 15:53 BP 134 / 78; Pulse 74; Resp 18; Temp 98.5; Pulse Ox 97% on R/A; Weight 57.15 kg; Height 5 ft. 1 in. (154.94 cm); Pain 8/10; 17:03 BP 131 / 71; Pulse 69; Resp 16; Temp 98.5; Pulse Ox 97% ; bp 15:53 Body Mass Index 23.81 (57.15 kg, 154.94 cm) NIH Stroke Scale Scores: 16:38 NIHSS Score: 0 [facility] MDM: 15:55 Patient medically screened. [facility] 16:39 Data reviewed: vital signs, nurses notes, lab test result(s). [facility] 12/26 16:31 Order name: Blood Glucose Level; Complete Time: 16:39 [facility] 12/26 16:31 Order name: Wound Care: right foot, clean and dress; Complete Time: 16:48 [facility] Administered Medications: 16:47 Drug: [place] 10 mg-325 mg 1 tabs Route: PO; bp 17:04 Follow up: Response: Pain is decreased bp Point of Care Testing: Blood Glucose: 16:00 Blood Glucose: 96 mg/dL; bp Ranges: Critical Glucose Levels:Adult <50 mg/dl or >400 mg/dl <40 mg/dl or >180 mg/dl Disposition: 12/26/18 16:42 Discharged to Home. Impression: Type 2 diabetes mellitus, Pain in right foot. - Condition is Stable. - Discharge Instructions: Type 2 Diabetes Mellitus, Diagnosis, Adult, Type 2 Diabetes Mellitus, Diagnosis, Adult, [id number], Foot Pain. - Prescriptions for gabapentin 300 mg Oral capsule - take 2 capsule by ORAL route 2 times per day; 20 capsule. Tylenol- Codeine #3 300-30 mg Oral Tablet - take 2 tablet by ORAL route every 6 hours As needed; 30 tablet. - Medication Reconciliation Form, Thank You Letter, Antibiotic Education, Prescription Opioid Use form. - Follow up: Private Physician; When: 2 - 3 days; Reason: Recheck today's complaints, Continuance of care, Re-evaluation by your physician. - Problem is new. - Symptoms have improved. NIH Stroke Scale - NIH Stroke Score Date: 12/26/2018 Time: 16:38 Total Score = 0 1a. Level of Consciousness (LOC) - 0(Alert) 1b. Level of Consciousness (LOC) (Year \T\ Age) - 0(Both) 1c. LOC Commands (Open \T\ Closes Eyes/Market Research Consultant) - 0(Both) 2. Best Gaze (Lateral Gaze Paresis) - 0(Normal) 3. Visual Field Loss - 0(No visual loss) 4. Facial Palsy - 0(Normal) 5a. Left Arm: Motor (10-second hold) - 0(No drift) 5b. Right Arm: Motor (10-second hold) - 0(No drift) 6a. Left Leg: Motor (5-second hold - always test supine) - 0(No drift) 6b. Right Leg: Motor (5-second hold - always test supine) - 0(No drift) 7. Limb Ataxia (finger/nose \T\ heel/franks - test with eyes open) - 0(Absent) 8. Sensory Loss (pinprick arms/legs/face) - 0(Normal) 9. Best Language: Aphasia (description/naming/reading) - 0(No aphasia) 10. Dysarthria (speech clarity - read or repeat words) - 0(Normal) 11. Extinction and Inattention (visual/tactile/auditory/spatial/personal) - 0(No abnormality) Initials: marj Signatures: Alanna Jorgensen RN RN Wally Lee MD MD cha Peltier, Brian RN RN bp Corrections: (The following items were deleted from the chart) 17:04 16:42 12/26/2018 16:42 Discharged to Home. Impression: Type 2 diabetes bp mellitus; Pain in right foot. Condition is Stable. Forms are Medication Reconciliation Form, Thank You Letter, Antibiotic Education, Prescription Opioid Use. Follow up: Private Physician; When: 2 - 3 days; Reason: Recheck today's complaints, Continuance of care, Re-evaluation by your physician. Problem is new. Symptoms have improved. marj
--- NOTE | 2018-12-26 16:43 | ER ---
Nurse's Notes [facility] Name: Amaury Matamoros Age: 68 yrs Sex: Male : 1950 Arrival Date: 12/26/2018 Time: 15:32 Bed 17 Private MD: Diagnosis: Type 2 diabetes mellitus;Pain in right foot Presentation: 12/26 15:51 Presenting complaint: Patient states: im diabetic and I have a lot of heaviness in my L ch foot for the past 2-3 days. totally numb and painful they told me I need a stent in my leg for my foot. I am worried about it. 15:54 Transition of care: patient was not received from another setting of care. Onset of symptoms was December 24, 2018. Risk Assessment: Do you want to hurt yourself or someone else? Patient reports no desire to harm self or others. Initial Sepsis Screen: Does the patient meet any 2 criteria? No. Patient's initial sepsis screen is negative. Does the patient have a suspected source of infection? No. Patient's initial sepsis screen is negative. Care prior to arrival: None. 15:54 Method Of Arrival: Ambulatory 15:54 Acuity: ALEJANDRA 3 Triage Assessment: 15:51 General: Appears in no apparent distress. comfortable, Behavior is cooperative, bp appropriate for age, anxious. Pain: Complains of pain in left foot. EENT: No deficits noted. Neuro: Level of Consciousness is awake, alert, obeys commands, Oriented to person, place, time, situation, Appropriate for age. Cardiovascular: No deficits noted. Respiratory: Airway is patent Respiratory effort is even, unlabored, Respiratory pattern is regular, symmetrical. GI: No signs and/or symptoms were reported involving the gastrointestinal system. : No signs and/or symptoms were reported regarding the genitourinary system. Derm: No deficits noted. 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 Historical: - Allergies: 15:53 PENICILLINS; ch - Home Meds: 15:53 metformin 1,000 mg Oral tab 1 tab 2 times per day [Active]; metoprolol tartrate 25 mg ch Oral tab 1 tab 2 times per day [Active]; gabapentin 300 mg Oral cap 1 cap 3 times per day [Active]; ferrous sulfate 325 mg (65 mg iron) Oral tab daily [Active]; other unknown pills for my leg and blood pressure. [Active]; - PMHx: 15:53 Cellulitis; Diabetes - NIDDM; Hypertension; ch - PSHx: 15:53 left leg surgery/amuptation; ch - Immunization history:: Adult Immunizations up to date. - Social history:: Smoking status: Patient uses tobacco products, denies chronic smoking, but will smoke occasionally. - Ebola Screening: : Patient negative for fever greater than or equal to 101.5 degrees Fahrenheit, and additional compatible Ebola Virus Disease symptoms Patient denies exposure to infectious person Patient denies travel to an Ebola-affected area in the 21 days before illness onset No symptoms or risks identified at this time. - Family history:: not pertinent. Screenin:55 Abuse screen: Denies threats or abuse. Denies injuries from another. Nutritional bp screening: No deficits noted. Tuberculosis screening: No symptoms or risk factors identified. Fall Risk None identified. Assessment: 15:51 General: Appears in no apparent distress. comfortable, Behavior is calm, cooperative, bp appropriate for age. Pain: Complains of pain in left foot. Neuro: Level of Consciousness is awake, alert, obeys commands, Oriented to person, place, time, situation, Appropriate for age. Cardiovascular: No deficits noted. Respiratory: Airway is patent Respiratory effort is even, unlabored, Respiratory pattern is regular, symmetrical. GI: No signs and/or symptoms were reported involving the gastrointestinal system. : No signs and/or symptoms were reported regarding the genitourinary system. EENT: No deficits noted. Derm: No deficits noted. Musculoskeletal: No signs and/or symptoms reported regarding the musculoskeletal system. 16:50 Reassessment: PT EATING FOOD TRAY WITHOUT DIFFICULTY, NO N/V NOTED. bp 17:03 Reassessment: PT D/C HOME AMBULATORY, DX WITH DIABETES. bp Vital Signs: 15:53 BP 134 / 78; Pulse 74; Resp 18; Temp 98.5; Pulse Ox 97% on R/A; Weight 57.15 kg; Height 5 ft. 1 in. (154.94 cm); Pain 8/10; 17:03 BP 131 / 71; Pulse 69; Resp 16; Temp 98.5; Pulse Ox 97% ; bp 15:53 Body Mass Index 23.81 (57.15 kg, 154.94 cm) NIH Stroke Scale Scores: 16:38 NIHSS Score: 0 [facility] ED Course: 15:32 Patient arrived in ED. mr 15:53 Arm band placed on left wrist. Patient placed in an exam room, on a stretcher. 15:54 Triage completed. 15:55 Wally Miles MD is Attending Physician. [facility] 15:55 Patient has correct armband on for positive identification. Bed in low position. Call bp light in reach. Side rails up X2. 16:27 Malcolm Beatty, COURTNEY is Primary Nurse. bp 17:03 No provider procedures requiring assistance completed. Patient did not have IV access bp during this emergency room visit. Administered Medications: 16:47 Drug: [place] 10 mg-325 mg 1 tabs Route: PO; bp 17:04 Follow up: Response: Pain is decreased bp Point of Care Testing: Blood Glucose: 16:00 Blood Glucose: 96 mg/dL; bp Ranges: Outcome: 16:42 Discharge ordered by MD. [facility] 17:03 Discharged to home ambulatory. bp 17:03 Condition: stable 17:03 Discharge instructions given to patient, Instructed on discharge instructions, follow up and referral plans. medication usage, wound care, Demonstrated understanding of instructions, follow-up care, medications, wound care, Prescriptions given X 2. 17:04 Patient left the ED. bp NIH Stroke Scale - NIH Stroke Score Date: 12/26/2018 Time: 16:38 Total Score = 0 1a. Level of Consciousness (LOC) - 0(Alert) 1b. Level of Consciousness (LOC) (Year \T\ Age) - 0(Both) 1c. LOC Commands (Open \T\ Closes Eyes/Websphere Portal Architect) - 0(Both) 2. Best Gaze (Lateral Gaze Paresis) - 0(Normal) 3. Visual Field Loss - 0(No visual loss) 4. Facial Palsy - 0(Normal) 5a. Left Arm: Motor (10-second hold) - 0(No drift) 5b. Right Arm: Motor (10-second hold) - 0(No drift) 6a. Left Leg: Motor (5-second hold - always test supine) - 0(No drift) 6b. Right Leg: Motor (5-second hold - always test supine) - 0(No drift) 7. Limb Ataxia (finger/nose \T\ heel/franks - test with eyes open) - 0(Absent) 8. Sensory Loss (pinprick arms/legs/face) - 0(Normal) 9. Best Language: Aphasia (description/naming/reading) - 0(No aphasia) 10. Dysarthria (speech clarity - read or repeat words) - 0(Normal) 11. Extinction and Inattention (visual/tactile/auditory/spatial/personal) - 0(No abnormality) Initials: marj Signatures: Alanna Jorgensen RN RN Wally Lee MD MD cha Rivera, Malcolm Hernandez, RN RN bp Corrections: (The following items were deleted from the chart) 15:54 15:51 Presenting complaint: Patient states: im diabetic and I have a lot of ch heaviness in my L foot for the past 2-3 days. totally numb. they told me I need a stent in my leg for my foot. I am worried about it. ch
[2018-12-26] MEDS ORDERED: HYDROCODONE/APAP 10/325 TAB ONE (16:59)
[2018-12-26 17:59] VITALS: TEMP 98.5; O2SAT 97
[2018-12-26 18:01] VITALS: BP 131/71
== END 2018-12-26 17:04 | disposition home or self-care (01) ==
LOC: ER 15:28
DX: M79.671 Pain in right foot (principal); Z88.0 Allergy status to penicillin; E11.9 Type 2 diabetes mellitus without complications; I10 Essential (primary) hypertension; Z72.0 Tobacco use; Z79.84 Long term (current) use of oral hypoglycemic drugs
CPT/HCPCS: 82962; 99283

== ENCOUNTER 2019-01-05 23:02 | Emergency (ER) | payer OTHER ==
--- OUTSIDE RECORDS SUMMARY | 2019-01-05 23:13 | XMS REPORT ---
:1950 [facility] Address [address] [place] [address] Dr. Snyder [address] [place] [id number] Care Team Providers Name Role Phone Unavailable Unavailable Unavailable Problems This patient has no known problems. Allergies, Adverse Reactions, Alerts This patient has no known allergies or adverse reactions. Medications This patient has no known medications.
[2019-01-05] MEDS ORDERED: HYDROCODONE/APAP 7.5/325 MG TAB ONE (23:36)
[2019-01-05] MEDS ORDERED: IBUPROFEN 400 MG TAB ONE (23:36)
[2019-01-05] MEDS ORDERED: IBUPROFEN 200 MG TAB PO ONE (23:37)
--- NOTE | 2019-01-06 00:58 | ER ---
Nurse's Notes 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 No laceration noted at site. Transition of care: patient was not received from another setting of care. Onset of symptoms was January 05, 2019 at 22:00. Risk Assessment: Do you want to hurt yourself or someone else? Patient reports no desire to harm self or others. Initial Sepsis Screen: Does the patient meet any 2 criteria? No. Patient's initial sepsis screen is negative. Does the patient have a suspected source of infection? No. Patient's initial sepsis screen is negative. Care prior to arrival: None. 23:15 Method Of Arrival: Wheelchair tl2 23:15 Acuity: ALEJANDRA 4 tl2 Historical: - Allergies: 23:18 PENICILLINS; tl2 - Home Meds: 23:18 ferrous sulfate 325 mg (65 mg iron) Oral tab daily [Active]; gabapentin 300 mg Oral cap tl2 1 cap 3 times per day [Active]; metformin 1,000 mg Oral tab 1 tab 2 times per day [Active]; metoprolol tartrate 25 mg Oral tab 1 tab 2 times per day [Active]; other unknown pills for my leg and blood pressure. [Active]; - PMHx: 23:18 Cellulitis; Diabetes - NIDDM; Hypertension; tl2 - PSHx: 23:18 None; tl2 - Immunization history:: Adult Immunizations up to date. - Social history:: Smoking status: Patient uses tobacco products, denies chronic smoking, but will smoke occasionally. - Ebola Screening: : No symptoms or risks identified at this time. Screenin:20 Abuse screen: Denies threats or abuse. Nutritional screening: No deficits noted. tl2 Tuberculosis screening: No symptoms or risk factors identified. Fall Risk Ambulatory Aid- Crutches/Cane/Walker (15 pts). Gait- Impaired (20 pts.). Assessment: 23:15 General: Appears in no apparent distress. uncomfortable, Behavior is calm, cooperative, rr5 appropriate for age. Pain: Complains of pain in coccyx Pain does not radiate. Pain currently is 9 out of 10 on a pain scale. Quality of pain is described as aching, Pain began suddenly, Is intermittent. 23:15 Neuro: Level of Consciousness is awake, alert, obeys commands, Oriented to person, rr5 place, time, situation, Appropriate for age. Cardiovascular: Capillary refill < 3 seconds Patient's skin is warm and dry. Respiratory: Airway is patent Respiratory effort is even, unlabored, Respiratory pattern is regular, symmetrical. GI: No signs and/or symptoms were reported involving the gastrointestinal system. : No signs and/or symptoms were reported regarding the genitourinary system. EENT: No signs and/or symptoms were reported regarding the EENT system. Derm: Skin is intact, Skin temperature is warm. Musculoskeletal: Amputation of bka Capillary refill < 3 seconds, Reports pain in coccyx. 23:45 Reassessment: Patient appears in no apparent distress at this time. Patient is alert, rr5 oriented x 3, equal unlabored respirations, skin warm/dry/pink. went for xray via wheelchair. 01/06 00:25 Reassessment: Patient appears in no apparent distress at this time. Patient is alert, rr5 oriented x 3, equal unlabored respirations, skin warm/dry/pink. watching TV comfortably. no complaints made. awaiting for xray results. 01:06 Reassessment: Patient appears in no apparent distress at this time. Patient is alert, rr5 oriented x 3, equal unlabored respirations, skin warm/dry/pink. discharge instruction given and explained without complaints made. Vital Signs: 01/05 23:18 BP 142 / 76; Pulse 82; Resp 18; Temp 98.2(O); Pulse Ox 99% on R/A; Weight 58.97 kg; tl2 Height 5 ft. 2 in. (157.48 cm); Pain 9/10; 01/06 00:30 BP 112 / 72; Pulse 80; Resp 16; Pulse Ox 99% on R/A; rr5 01:06 BP 121 / 76; Pulse 76; Resp 16; Temp 98.1; Pulse Ox 99% on R/A; rr5 01/05 23:18 Body Mass Index 23.78 (58.97 kg, 157.48 cm) tl2 ED Course: 01/05 23:04 Patient arrived in ED. do 23:10 Wally Espinosa PA is PHCP. cp 23:10 Kael Ramirez MD is Attending Physician. cp 23:16 Triage completed. tl2 23:18 Arm band placed on right wrist. tl2 23:19 Young Palumbo, COURTNEY is Primary Nurse. rr5 23:20 Patient has correct armband on for positive identification. Bed in low position. Call tl2 light in reach. Side rails up X2. 23:49 Patient moved to radiology via wheelchair. kw 23:49 X-ray completed. Patient tolerated procedure well. Patient moved back from radiology. kw 23:50 Lumbar Spine 3 Views In Process Unspecified. EDMS 23:50 Pelvis In Process Unspecified. EDMS 01/06 01:07 No provider procedures requiring assistance completed. Patient did not have IV access rr5 during this emergency room visit. Administered Medications: 01/05 23:24 Drug: Hydrocodone-Acetaminophen (7.5 mg-325 mg) 1 tabs Route: PO; rr5 01/06 00:30 Follow up: Response: No adverse reaction rr5 01/05 23:24 Drug: Ibuprofen 600 mg Route: PO; rr5 01/06 00:30 Follow up: Response: No adverse reaction rr5 Outcome: 00:58 Discharge ordered by MD. cp 01:07 Discharged to home ambulatory. rr5 01:07 Condition: stable 01:07 Discharge instructions given to patient, Instructed on discharge instructions, follow up and referral plans. medication usage, Demonstrated understanding of instructions, follow-up care, medications, Prescriptions given X 3. 01:07 Patient left the ED. rr5 Signatures: Dispatcher [employer] EDMS [place] Ivy kw Wally Espinosa PA PA cp [place], Danielle do Knox, Taylor, RN RN tl2 Young Palumbo, COURTNEY RN rr5
--- NOTE | 2019-01-06 00:58 | EDPHYS ---
Physician Documentation [facility] Name: Amaury Matamoros Age: 68 yrs Sex: Male : 1950 Arrival Date: 01/05/2019 Time: 23:04 Bed 5 Private MD: ED Physician Kael Ramirez HPI: 01/05 23:15 This 68 yrs old Male presents to ER via Wheelchair with complaints of Fall cp Injury. 23:15 Details of fall: The patient fell from an upright position, while walking, and struck a cp concrete surface. 23:15 Onset: The symptoms/episode began/occurred just prior to arrival. Associated injuries: cp The patient sustained low back and sacral and coccyx area. Historical: - Allergies: 23:18 PENICILLINS; tl2 - Home Meds: 23:18 ferrous sulfate 325 mg (65 mg iron) Oral tab daily [Active]; gabapentin 300 mg Oral cap tl2 1 cap 3 times per day [Active]; metformin 1,000 mg Oral tab 1 tab 2 times per day [Active]; metoprolol tartrate 25 mg Oral tab 1 tab 2 times per day [Active]; other unknown pills for my leg and blood pressure. [Active]; - PMHx: 23:18 Cellulitis; Diabetes - NIDDM; Hypertension; tl2 - PSHx: 23:18 None; tl2 - Immunization history:: Adult Immunizations up to date. - Social history:: Smoking status: Patient uses tobacco products, denies chronic smoking, but will smoke occasionally. - Ebola Screening: : No symptoms or risks identified at this time. ROS: 23:20 Constitutional: Negative for body aches, chills, fever, poor PO intake. cp 23:20 Eyes: Negative for injury, pain, redness, and discharge. cp 23:20 Cardiovascular: Negative for chest pain. 23:20 Respiratory: Negative for cough, shortness of breath, wheezing. 23:20 Abdomen/GI: Negative for abdominal pain. 23:20 Back: Positive for pain at rest, of the lower back and sacrum and coccyx. 23:20 : Negative for urinary symptoms, difficulty urinating, bladder incontinence, testicular pain 23:20 Neuro: Negative for altered mental status, headache, loss of consciousness, syncope, weakness. 23:20 All other systems are negative. Exam: 23:30 Constitutional: The patient appears in no acute distress, alert, awake, non-toxic, well cp developed, well nourished. 23:30 Head/Face: Normocephalic, atraumatic. cp 23:30 Eyes: Periorbital structures: appear normal, Conjunctiva: normal, no exudate, no cp injection, Lids and lashes: appear normal, bilaterally. 23:30 ENT: External ear(s): are unremarkable, Nose: is normal, Mouth: Lips: moist, Oral mucosa: moist, Posterior pharynx: Airway: no evidence of obstruction, patent. 23:30 Neck: C-spine: vertebral tenderness, is not appreciated, crepitus, is not appreciated, ROM/movement: is normal, is supple, without pain, no range of motions limitations, no nuchal rigidity. 23:30 Chest/axilla: Inspection: normal, Palpation: is normal, no crepitus, no tenderness. 23:30 Cardiovascular: Rate: normal. 23:30 Respiratory: the patient does not display signs of respiratory distress, Respirations: normal, no use of accessory muscles, no retractions, no splinting, no tachypnea, labored breathing, is not present. 23:30 Abdomen/GI: Inspection: abdomen appears normal, Palpation: abdomen is soft and non-tender, in all quadrants. 23:30 Back: pain, that is moderate, of the lumbar area and sacrum. 23:30 Skin: cellulitis, is not appreciated, no rash present. Vital Signs: 23:18 BP 142 / 76; Pulse 82; Resp 18; Temp 98.2(O); Pulse Ox 99% on R/A; Weight 58.97 kg; tl2 Height 5 ft. 2 in. (157.48 cm); Pain 9/10; 01/06 00:30 BP 112 / 72; Pulse 80; Resp 16; Pulse Ox 99% on R/A; rr5 01:06 BP 121 / 76; Pulse 76; Resp 16; Temp 98.1; Pulse Ox 99% on R/A; rr5 01/05 23:18 Body Mass Index 23.78 (58.97 kg, 157.48 cm) tl2 MDM: 01/05 23:14 Patient medically screened. cp 01/06 00:00 Differential diagnosis: contusion, fracture, laceration. cp 00:56 Test interpretation: by ED physician or midlevel provider: xray of pelvis negative for cp fracture, xrays of lumbar spine negative for fracture. 00:57 Data reviewed: vital signs, nurses notes, radiologic studies, plain films. cp 00:57 Counseling: I had a detailed discussion with the patient and/or guardian regarding: the cp historical points, exam findings, and any diagnostic results supporting the discharge/admit diagnosis, radiology results, the need for outpatient follow up, to return to the emergency department if symptoms worsen or persist or if there are any questions or concerns that arise at home. 01/05 23:29 Order name: Lumbar Spine 3 Views EDMS 01/05 23:29 Order name: Pelvis EDMS Administered Medications: 01/05 23:24 Drug: Hydrocodone-Acetaminophen (7.5 mg-325 mg) 1 tabs Route: PO; rr5 01/06 00:30 Follow up: Response: No adverse reaction rr5 01/05 23:24 Drug: Ibuprofen 600 mg Route: PO; rr5 01/06 00:30 Follow up: Response: No adverse reaction rr5 Disposition: 09:35 Co-signature as Attending Physician, Kael Ramirez MD I agree with the assessment and wa plan of care. Disposition: 01/06/19 00:58 Discharged to Home. Impression: Fall on same level from slipping, tripping and stumbling, Low back pain - from fall. - Condition is Stable. - Discharge Instructions: Back Pain, Adult. - Prescriptions for Ibuprofen 800 mg Oral Tablet - take 1 tablet by ORAL route every 8 hours As needed take with food; 30 tablet. Cyclobenzaprine 10 mg Oral Tablet - take 1 tablet by ORAL route every 8 hours As needed; 15 tablet. Tramadol 50 mg Oral Tablet - take 1 tablet by ORAL route every 8 hours as needed; 12 tablet. - Medication Reconciliation Form, Thank You Letter, Antibiotic Education, Prescription Opioid Use form. - Follow up: Private Physician; When: 2 - 3 days; Reason: Recheck today's complaints. - Problem is new. - Symptoms have improved. Signatures: Dispatcher [employer] EDVT Wally Espinosa PA PA cp Knox, Taylor RN RN tl2 Kael Ramirez MD MD wa Roque, Raymond RN RN rr5 Corrections: (The following items were deleted from the chart) 00:57 00:47 Pelvis+RAD.RAD.BRZ ordered. EDMS EDMS 00:57 00:47 Lumbar Spine 3 Views+RAD.RAD.BRZ ordered. EDVT EDMS 01:07 00:58 01/06/2019 00:58 Discharged to Home. Impression: Fall on same level from rr5 slipping, tripping and stumbling; Low back pain - from fall. Condition is Stable. Forms are Medication Reconciliation Form, Thank You Letter, Antibiotic Education, Prescription Opioid Use. Follow up: Private Physician; When: 2 - 3 days; Reason: Recheck today's complaints. Problem is new. Symptoms have improved. cp
[2019-01-06 03:32] VITALS: O2SAT 99
[2019-01-06 03:35] VITALS: BP 121/76; TEMP 98.1
--- NOTE | 2019-01-06 08:38 | RAD REPORT ---
EXAM DESCRIPTION: RAD - Lumbar Spine 3 Views - 01/05/2019 11:56 pm CLINICAL HISTORY: fall Radiculopathy COMPARISON: No comparisons FINDINGS: Diffuse osteopenia is seen. Small endplate osteophytes are present throughout the lumbar s pine, most notable at L3-4 and L4-5. No acute fracture seen. Aortic atherosclerosis.
--- NOTE | 2019-01-06 08:40 | RAD REPORT ---
EXAM DESCRIPTION: RAD - Pelvis - 01/05/2019 11:55 pm CLINICAL HISTORY: fall Trauma, fall, pelvic pain COMPARISON: Pelvis dated 10/13/2018 FINDINGS: No acute fracture or dislocation suspected. Vascular calcification noted. IMPRESSION: No acute traumatic finding discerned.
== END 2019-01-06 01:07 | disposition home or self-care (01) ==
LOC: ER 23:02
DX: M54.5 Low back pain (principal); W01.198A Fall on same level from slipping, tripping and stumbling with subsequent striking against other object, initial encounter; Y93.9 Activity, unspecified; Y92.9 Unspecified place or not applicable; Z88.0 Allergy status to penicillin; I10 Essential (primary) hypertension; E11.9 Type 2 diabetes mellitus without complications
CPT/HCPCS: 72100; 72170; 99283

== ENCOUNTER 2019-02-26 10:58 | Emergency (ER) | payer OTHER ==
--- OUTSIDE RECORDS SUMMARY | 2019-02-26 11:00 | XMS REPORT ---
:1950 [facility] [address] [place] [address] Dr. Snyder [address] [place] [address] Care Team Providers Name Role Phone Unavailable Unavailable Unavailable Problems This patient has no known problems. Allergies, Adverse Reactions, Alerts This patient has no known allergies or adverse reactions. Medications This patient has no known medications.
--- NOTE | 2019-02-26 13:59 | EDPHYS ---
Physician Documentation [facility] Name: Amaury Matamoros Age: 68 yrs Sex: Male : 1950 Arrival Date: 02/26/2019 Time: 11:00 Bed 20 Private MD: ED Physician Gold Sorto HPI: 02/26 13:45 This 68 yrs old Male presents to ER via Ambulatory with complaints of Nose cp Problem. 13:45 The patient presents with mass. cp 13:45 Onset: The symptoms/episode began/occurred for months. Associated signs and symptoms: cp Pertinent positives: started bleeding this morning. Severity of symptoms: in the emergency department the symptoms have resolved and did so just prior to arrival. Historical: - Allergies: 11:13 PENICILLINS; hb - Home Meds: 13:33 ferrous sulfate 325 mg (65 mg iron) Oral tab daily [Active]; gabapentin 300 mg Oral cap bp 1 cap 3 times per day [Active]; metformin 1,000 mg Oral tab 1 tab 2 times per day [Active]; metoprolol tartrate 25 mg Oral tab 1 tab 2 times per day [Active]; other unknown pills for my leg and blood pressure. [Active]; - PMHx: 13:33 Cellulitis; Diabetes - NIDDM; Hypertension; bp - Immunization history:: Adult Immunizations up to date. - Social history:: Smoking status: unknown. - Ebola Screening: : No symptoms or risks identified at this time. ROS: 13:46 Constitutional: Negative for fever. cp 13:46 Skin: Positive for of the external nose, mass. 13:46 Neuro: Negative for headache, weakness. 13:46 All other systems are negative. Vital Signs: 11:13 BP 118 / 67; Pulse 67; Resp 16; Temp 97.1; Pulse Ox 100% on R/A; Weight 58.97 kg; hb Height 5 ft. 1 in. (154.94 cm); Pain 6/10; 11:13 Body Mass Index 24.56 (58.97 kg, 154.94 cm) hb MDM: 13:26 Patient medically screened. cp 02/26 13:48 Order name: Wound Care: please clean and dress wound with bacitracin; Complete Time: cp 14:18 Administered Medications: No medications were administered Disposition: 02/26/19 13:58 Discharged to Home. Impression: Localized swelling, mass and lump of skin and subcutaneous tissue - nose. - Condition is Stable. - Discharge Instructions: Excision of Skin Lesions, Skin Biopsy. - Medication Reconciliation Form, Thank You Letter, Antibiotic Education, Prescription Opioid Use form. - Follow up: Timothy Sotelo MD; When: 1 - 2 days; Reason: Recheck today's complaints. Follow up: Private Physician; When: 1 - 2 days; Reason: Recheck today's complaints. - Problem is an ongoing problem. - Symptoms have improved. Signatures: Wally Espinosa PA PA cp Micaela Zuñiga, RN RN hb Malcolm Beatty, RN RN bp Eber Peck RN RN mg2 Corrections: (The following items were deleted from the chart) 14:21 13:58 02/26/2019 13:58 Discharged to Home. Impression: Localized swelling, mass and mg2 lump of skin and subcutaneous tissue - nose. Condition is Stable. Forms are Medication Reconciliation Form, Thank You Letter, Antibiotic Education, Prescription Opioid Use. Follow up: Timothy Sotelo; When: 1 - 2 days; Reason: Recheck today's complaints. Follow up: Private Physician; When: 1 - 2 days; Reason: Recheck today's complaints. Problem is an ongoing problem. Symptoms have improved. cp
--- NOTE | 2019-02-26 13:59 | ER ---
Nurse's Notes [facility] Name: Amaury Matamoros Age: 68 yrs Sex: Male : 1950 Arrival Date: 02/26/2019 Time: 11:00 Bed 20 Private MD: Diagnosis: Localized swelling, mass and lump of skin and subcutaneous tissue-nose Presentation: 02/26 11:12 Presenting complaint: Patient states: Growth on nose has been bleeding since he woke up hb today. Not actively bleeding in triage. Transition of care: patient was not received from another setting of care. Onset of symptoms was February 26, 2019. Risk Assessment: Do you want to hurt yourself or someone else? Patient reports no desire to harm self or others. Initial Sepsis Screen: Does the patient meet any 2 criteria? No. Patient's initial sepsis screen is negative. Does the patient have a suspected source of infection? No. Patient's initial sepsis screen is negative. Care prior to arrival: None. 11:12 Method Of Arrival: Ambulatory hb 11:12 Acuity: ALEJANDRA 4 hb Triage Assessment: 13:34 General: Appears in no apparent distress. comfortable, Behavior is calm, cooperative, bp appropriate for age. Pain: Complains of pain in nose. EENT: No deficits noted. Neuro: No deficits noted. Cardiovascular: No deficits noted. Respiratory: No deficits noted. GI: No deficits noted. : No signs and/or symptoms were reported regarding the genitourinary system. Derm: No deficits noted. Musculoskeletal: No deficits noted. Historical: - Allergies: 11:13 PENICILLINS; hb - Home Meds: 13:33 ferrous sulfate 325 mg (65 mg iron) Oral tab daily [Active]; gabapentin 300 mg Oral cap bp 1 cap 3 times per day [Active]; metformin 1,000 mg Oral tab 1 tab 2 times per day [Active]; metoprolol tartrate 25 mg Oral tab 1 tab 2 times per day [Active]; other unknown pills for my leg and blood pressure. [Active]; - PMHx: 13:33 Cellulitis; Diabetes - NIDDM; Hypertension; bp - Immunization history:: Adult Immunizations up to date. - Social history:: Smoking status: unknown. - Ebola Screening: : No symptoms or risks identified at this time. Screenin:19 Abuse screen: Denies threats or abuse. Denies injuries from another. Nutritional mg2 screening: No deficits noted. Tuberculosis screening: No symptoms or risk factors identified. Fall Risk None identified. Assessment: 14:19 Derm: Wound noted nose Wound is skin lesion. mg2 Vital Signs: 11:13 BP 118 / 67; Pulse 67; Resp 16; Temp 97.1; Pulse Ox 100% on R/A; Weight 58.97 kg; hb Height 5 ft. 1 in. (154.94 cm); Pain 6/10; 11:13 Body Mass Index 24.56 (58.97 kg, 154.94 cm) hb ED Course: 11:00 Patient arrived in ED. as 11:13 Triage completed. hb 11:13 Arm band placed on. hb 13:26 Wally Espinosa PA is PHCP. cp 13:26 Gold Sorto MD is Attending Physician. cp 13:31 Malcolm Beatty, RN is Primary Nurse. bp 13:53 Timothy Sotelo MD is Referral Physician. cp 14:18 No provider procedures requiring assistance completed. Patient did not have IV access mg2 during this emergency room visit. Wound care: to skin lesion located on nose was cleaned with dressed with Neosporin, Patient tolerated well. 14:20 Patient has correct armband on for positive identification. mg2 Administered Medications: No medications were administered Outcome: 13:58 Discharge ordered by MD. cp 14:20 Discharged to home ambulatory. mg2 14:20 Condition: good 14:20 Discharge instructions given to patient, Instructed on discharge instructions, follow up and referral plans. wound care, Demonstrated understanding of instructions, follow-up care, wound care. 14:21 Patient left the ED. mg2 Signatures: Jessica López as Wally Espinosa PA PA cp Micaela Zuñiga, RN RN Malcolm Beatty, COURTNEY RN bp Eber Peck RN RN mg2
[2019-02-26] MEDS ORDERED: BACITRACIN OINTMENT 15 GM TUBE TOP ONE (14:15)
[2019-02-26 14:28] VITALS: BP 118/67; TEMP 97.1; O2SAT 100
== END 2019-02-26 14:21 | disposition home or self-care (01) ==
LOC: ER 10:58
DX: R22.9 Localized swelling, mass and lump, unspecified (principal); I10 Essential (primary) hypertension; E11.9 Type 2 diabetes mellitus without complications; Z88.0 Allergy status to penicillin

== ENCOUNTER 2019-03-21 19:58 | Emergency (ER) | payer OTHER ==
--- OUTSIDE RECORDS SUMMARY | 2019-03-21 20:01 | XMS REPORT ---
:1950 [facility] Address [address] [place] [address] Dr. Snyder [address] [place] [id number] Care Team Providers Name Role Phone Unavailable Unavailable Unavailable Problems This patient has no known problems. Allergies, Adverse Reactions, Alerts This patient has no known allergies or adverse reactions. Medications This patient has no known medications.
[2019-03-21] MEDS ORDERED: HYDROCODONE/APAP 5/325 MG TAB ONE (21:23)
--- NOTE | 2019-03-21 22:30 | ER ---
Nurse's Notes [facility] Name: Amaury Matamoros Age: 68 yrs Sex: Male : 1950 Arrival Date: 03/21/2019 Time: 20:01 Bed 5 Private MD: Karyna Velásquez Diagnosis: Contusion of left knee Presentation: 03/21 20:39 Presenting complaint: Patient states: He fell on his stump this morning, and there's a aj1 lump on the side and his prosthetic has not been fitting properly. Patient reports he has been taking the Tylenol for pain with no relief. Transition of care: patient was not received from another setting of care. Onset of symptoms was March 21, 2019. Risk Assessment: Do you want to hurt yourself or someone else? Patient reports no desire to harm self or others. Initial Sepsis Screen: Does the patient meet any 2 criteria? No. Patient's initial sepsis screen is negative. Does the patient have a suspected source of infection? No. Patient's initial sepsis screen is negative. Care prior to arrival: None. 20:39 Method Of Arrival: Wheelchair aj1 20:39 Acuity: ALEJANDRA 4 aj1 Triage Assessment: 20:41 General: Appears in no apparent distress. comfortable, Behavior is calm, cooperative, aj1 appropriate for age. Pain: Complains of pain in left leg Pain currently is 10 out of 10 on a pain scale. Neuro: Level of Consciousness is awake, alert, obeys commands. Cardiovascular: Patient's skin is warm and dry. Respiratory: Airway is patent Respiratory effort is even, unlabored, Respiratory pattern is regular, symmetrical. Musculoskeletal: Amputation of left franks. 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 Historical: - Allergies: 20:41 PENICILLINS; aj1 - Home Meds: 20:41 ferrous sulfate 325 mg (65 mg iron) Oral tab daily [Active]; gabapentin 300 mg Oral cap aj1 1 cap 3 times per day [Active]; metformin 1,000 mg Oral tab 1 tab 2 times per day [Active]; metoprolol tartrate 25 mg Oral tab 1 tab 2 times per day [Active]; other unknown pills for my leg and blood pressure. [Active]; - PMHx: 20:41 Cellulitis; Diabetes - NIDDM; Hypertension; aj1 - Immunization history:: Adult Immunizations up to date. - Social history:: Smoking status: Patient uses tobacco products, denies chronic smoking, but will smoke occasionally. - Ebola Screening: : Patient denies travel to an Ebola-affected area in the 21 days before illness onset. Screenin:55 Abuse screen: Denies threats or abuse. Nutritional screening: No deficits noted. fc Tuberculosis screening: No symptoms or risk factors identified. Fall Risk None identified. Assessment: 20:55 General: Appears uncomfortable, slender, Behavior is calm, cooperative, appropriate for fc age. Pain: Complains of pain in lateral aspect of left knee Pain currently is 10 out of 10 on a pain scale. Quality of pain is described as aching, tender, Pain began this am at 0900 Is continuous, Aggravated by increased activity, repositioning, weight bearing. Neuro: Level of Consciousness is awake, alert, obeys commands, Oriented to person, place, time, situation, Appropriate for age. Cardiovascular: No deficits noted. Respiratory: Airway is patent Respiratory effort is even, unlabored, Respiratory pattern is regular, symmetrical, Breath sounds are clear bilaterally. GI: No deficits noted. : No deficits noted. EENT: No deficits noted. Derm: Skin is pink, warm \T\ dry. Musculoskeletal: Amputation of BKA Circulation, motion, and sensation intact. Capillary refill < 3 seconds, Range of motion: intact in all extremities. Injury Description: Abrasion sustained to lateral aspect of left knee is scabbed, was sustained 12-24 hours ago. 21:15 Reassessment: Dr Pemberton at bedside to examine pt. fc 21:29 Reassessment: Xray at bedside to do knee xray. fc 22:15 Reassessment: No changes from previously documented assessment. Patient and/or family fc updated on plan of care and expected duration. Pain level reassessed. Patient is alert, oriented x 3, equal unlabored respirations, skin warm/dry/pink. Pt requested and given a snack. Pt given jello and fruit cup. Vital Signs: 20:41 BP 152 / 81; Pulse 81; Resp 18; Temp 98.6; Pulse Ox 97% on R/A; Weight 58.97 kg (R); aj1 Height 5 ft. 3 in. (160.02 cm) (R); Pain 10/10; 21:15 BP 156 / 80; Pulse 84; Resp 20; Pulse Ox 98% on R/A; fc 21:45 BP 152 / 86; Pulse 80; Resp 20; Pulse Ox 99% on R/A; Pain 4/10; fc 22:20 BP 144 / 78; Pulse 67; Resp 18; Temp 98.1; Pulse Ox 99% on R/A; Pain 4/10; fc 20:41 Body Mass Index 23.03 (58.97 kg, 160.02 cm) aj1 ED Course: 20:01 Patient arrived in ED. cl3 20:02 Karyna Velásquez MD is Private Physician. cl3 20:40 Triage completed. aj1 20:41 Arm band placed on Patient placed in waiting room, Patient notified of wait time. aj1 20:55 Patient has correct armband on for positive identification. Bed in low position. Call fc light in reach. Side rails up X2. monitoring analyst on. Pulse ox on. NIBP on. 20:55 No provider procedures requiring assistance completed. 21:06 Crutis Pemberton MD is Attending Physician. 21:59 Knee Left 3 View XRAY In Process Unspecified. EDMS 22:19 Ajay Murillo MD is Referral Physician. gs 22:35 Patient did not have IV access during this emergency room visit. fc Administered Medications: 21:24 Drug: [place] 5 mg-325 mg 1 tabs Route: PO; fc 22:35 Follow up: Response: No adverse reaction; Pain is decreased fc Outcome: 22:20 Discharge ordered by . 22:35 Discharged to home ambulatory. 22:35 Condition: good 22:35 Discharge instructions given to patient, Instructed on discharge instructions, follow up and referral plans. Demonstrated understanding of instructions, follow-up care, Prescriptions given X None 22:36 Patient left the ED. Signatures: Dispatcher [employer] EDMS Melinda Lua RN RN aj1 Celia Barcenas RN RN Curtis Pemberton MD MD Lyndon Rivera cl3
--- NOTE | 2019-03-21 22:30 | EDPHYS ---
Physician Documentation [facility] Name: Amaury Matamoros Age: 68 yrs Sex: Male : 1950 Arrival Date: 03/21/2019 Time: 20:01 Bed 5 Private MD: Karyna Velásquez ED Physician Curtis Pemberton HPI: 03/21 22:10 This 68 yrs old Male presents to ER via Wheelchair with complaints of Knee gs Injury. 22:10 The patient presents with an injury, fell on stump today says swollen cant get gs prosthesis on. Context: resulted from the patient falling, while standing. Onset: The symptoms/episode began/occurred today. Modifying factors: the symptoms are aggravated by bending knee. Severity of symptoms: At their worst the symptoms were moderate, in the emergency department the symptoms are unchanged. The patient has experienced similar episodes in the past, a few times. Historical: - Allergies: 20:41 PENICILLINS; aj1 - Home Meds: 20:41 ferrous sulfate 325 mg (65 mg iron) Oral tab daily [Active]; gabapentin 300 mg Oral cap aj1 1 cap 3 times per day [Active]; metformin 1,000 mg Oral tab 1 tab 2 times per day [Active]; metoprolol tartrate 25 mg Oral tab 1 tab 2 times per day [Active]; other unknown pills for my leg and blood pressure. [Active]; - PMHx: 20:41 Cellulitis; Diabetes - NIDDM; Hypertension; aj1 - Immunization history:: Adult Immunizations up to date. - Social history:: Smoking status: Patient uses tobacco products, denies chronic smoking, but will smoke occasionally. - Ebola Screening: : Patient denies travel to an Ebola-affected area in the 21 days before illness onset. ROS: 22:10 All other systems are negative. gs Exam: 22:10 Head/Face: Normocephalic, atraumatic. Neck: Trachea midline, no thyromegaly or masses gs palpated, and no cervical lymphadenopathy. Supple, full range of motion without nuchal rigidity, or vertebral point tenderness. No Meningismus. Back: No spinal tenderness. No costovertebral tenderness. Full range of motion. Skin: Warm, dry with normal turgor. Normal color with no rashes, no lesions, and no evidence of cellulitis. 22:10 Constitutional: The patient appears alert, awake. 22:10 Musculoskeletal/extremity: Extremities: noted in the left knee: pain, There is no evidence of deformity, swelling, Perfusion: the patient is warm. Vital Signs: 20:41 BP 152 / 81; Pulse 81; Resp 18; Temp 98.6; Pulse Ox 97% on R/A; Weight 58.97 kg (R); aj1 Height 5 ft. 3 in. (160.02 cm) (R); Pain 10/10; 21:15 BP 156 / 80; Pulse 84; Resp 20; Pulse Ox 98% on R/A; fc 21:45 BP 152 / 86; Pulse 80; Resp 20; Pulse Ox 99% on R/A; Pain 4/10; fc 22:20 BP 144 / 78; Pulse 67; Resp 18; Temp 98.1; Pulse Ox 99% on R/A; Pain 4/10; fc 20:41 Body Mass Index 23.03 (58.97 kg, 160.02 cm) aj1 MDM: 21:15 Patient medically screened. gs 22:10 Data reviewed: vital signs, nurses notes, radiologic studies. Counseling: I had a gs detailed discussion with the patient and/or guardian regarding: the historical points, exam findings, and any diagnostic results supporting the discharge/admit diagnosis, radiology results, the need for outpatient follow up. 03/21 21:16 Order name: Knee Left 3 View XRAY Administered Medications: 21:24 Drug: [place] 5 mg-325 mg 1 tabs Route: PO; 22:35 Follow up: Response: No adverse reaction; Pain is decreased Disposition: 03/21/19 22:20 Discharged to Home. Impression: Contusion of left knee. - Condition is Stable. - Discharge Instructions: Knee Pain, [id number]. - Medication Reconciliation Form, Thank You Letter, Antibiotic Education, Prescription Opioid Use form. - Follow up: Ajay Murillo MD; When: 2 - 3 days; Reason: Re-evaluation by your physician. Signatures: Dispatcher [employer] Melinda Woodall RN RN aj1 Celia Barcenas RN RN PembertonCurtis brice MD MD Corrections: (The following items were deleted from the chart) 22:36 22:20 03/21/2019 22:20 Discharged to Home. Impression: Contusion of left knee. fc Condition is Stable. Forms are Medication Reconciliation Form, Thank You Letter, Antibiotic Education, Prescription Opioid Use. Follow up: Ajay Murillo; When: 2 - 3 days; Reason: Re-evaluation by your physician. gs
[2019-03-22 00:42] VITALS: O2SAT 99
[2019-03-22 00:43] VITALS: BP 144/78; TEMP 98.1
--- NOTE | 2019-03-22 10:09 | RAD REPORT ---
EXAM DESCRIPTION: RAD - Knee Left 3 View - 03/21/2019 9:59 pm CLINICAL HISTORY: Fall, trauma to distal left leg, below knee amputee COMPARISON: None. FINDINGS: No fractures identified. No acute bone finding evident on this examination. Note knee join t acute finding identified.No joint effusion seen. No joint space narrowing. Arterial tree calcificat ions are present. No foreign body seen. Soft tissues around the distal stump are not outside of the n ormal range. Baseline for the patient is unknown. IMPRESSION: No acute fracture. No acute finding of the knee joint or left tibia/ fibula.
== END 2019-03-21 22:36 | disposition home or self-care (01) ==
LOC: ER 19:58
DX: S80.02XA Contusion of left knee, initial encounter (principal); E11.9 Type 2 diabetes mellitus without complications; I10 Essential (primary) hypertension; W18.31XA Fall on same level due to stepping on an object, initial encounter; Y93.9 Activity, unspecified; Y92.9 Unspecified place or not applicable; Z88.0 Allergy status to penicillin; Z72.0 Tobacco use
CPT/HCPCS: 99284

== ENCOUNTER 2019-11-06 18:52 | Emergency (ER) | payer OTHER ==
--- OUTSIDE RECORDS SUMMARY | 2019-11-06 18:55 | XMS REPORT ---
:1950 Author Organization e[employer] Care Team Providers Name Role Phone Karyna Velásquez Provider Role Unavailable Allergies, Adverse Reactions, Alerts Substance Reaction Event Type N.K.D.A. Info Not Available Non Drug Allergy Problems Problem Type Condition Code Onset Dates Condition Statu s Assessment Uncontrolled type 2 diabetes E11.65 Active mellitus with hyperglycemia Assessment Essential hypertension I10 Activ e Assessment History of left below knee Z89.512 A ctive amputation Assessment Heavy sensation of lower extremity R29.898 Active Assessment Right foot pain M79.671 Active Assessment Anemia, unspecified type D64.9 Act ailyn Problem Diabetes E11.9 Active Problem History of left below knee Z89.512 A ctive amputation Problem Essential hypertension I10 Activ e Problem Heavy sensation of lower extremity R29.898 Active Problem Uncontrolled type 2 diabetes E11.65 Active mellitus with hyperglycemia Problem Right foot pain M79.671 Active Problem Anemia, unspecified type D64.9 Act ailyn Medications Medication Code Code Instructions Start End Status Dosage System Date Date Lisinopril ND 13407688794 10 MG Orally Active 1 ta blet Once a day Hydrochlorothiazide ND 78492244284 25 MG Orally Act ailyn 1 tablet Once a day in the morning Pantoprazole Sodium ND 45411993939 40 MG Orally Act ailyn 1 tablet Once daily Gabapentin ND 95399888440 300 MG Orally Active 1 c apsule Three times a day Metoprolol Tartrate ND 10790625806 25 mg Orally Act ailyn 1 tablet Twice a day with food Metformin HCl ND 81804045200 1000 MG Orally Active 1 tablet twice a day with a meal Ferrous Sulfate ND 38928225573 325 (65 Fe) MG Activ e 1 tablet Orally Twice daily Amlodipine Besylate ND 72638490786 2.5 MG Orally Ac tive 1 tablet Once a day Results Name Result Date Reference Range Unit Abnormali ty Flag HEMOGLOBIN A1C ----A1C 5.9% [id number] GLUCOSE FINGER ----Result 154--RBS [id number] Summary Purpose eClinicalWorks Submission
--- OUTSIDE RECORDS SUMMARY | 2019-11-06 18:55 | XMS REPORT ---
:1950 Author Organization [employer] Care Team Providers Name Role Phone Karyna Velásquez Provider Role Unavailable Allergies, Adverse Reactions, Alerts Substance Reaction Event Type N.K.D.A. Info Not Available Non Drug Allergy Problems Problem Type Condition Code Onset Dates Condition Statu s Problem Anemia, unspecified type D64.9 Act ailyn Problem Abnormal renal function test R94.4 Active Problem Uncontrolled type 2 diabetes E11.65 Active mellitus with hyperglycemia Problem Onychomycosis B35.1 Active Assessment Anemia, unspecified type D64.9 Act ailyn Problem Skin lesions L98.9 Active Assessment Right foot pain M79.671 Active Assessment Decreased sensation of foot R20.8 Active Problem Skin cancer C44.90 Active Problem Blurry vision, bilateral H53.8 Act ailyn Problem Decreased sensation of foot R20.8 Active Problem Paresthesias R20.2 Active Problem Right leg paresthesias R20.2 Activ e Assessment Blurry vision, bilateral H53.8 Act ailyn Assessment Essential hypertension I10 Activ e Assessment Uncontrolled type 2 diabetes E11.65 Active mellitus with hyperglycemia Assessment Abnormal renal function test R94.4 Active Problem Essential hypertension I10 Activ e Problem History of left below knee Z89.512 A ctive amputation Assessment History of left below knee Z89.512 A ctive amputation Problem Right foot pain M79.671 Active Assessment Heavy sensation of lower extremity R29.898 Active Problem Diabetes E11.9 Active Problem Heavy sensation of lower extremity R29.898 Active Medications Medication Code Code Instructions Start End Status Dosage System Date Date Hydrochlorothiazide ND 00063361171 25 MG Orally Act ailyn 1 tablet Once a day in the morning Ferrous Sulfate ND 42128098834 325 (65 Fe) MG Activ e 1 tablet Orally Twice daily Pantoprazole Sodium ND 06578456829 40 MG Orally Act ailyn 1 tablet Once daily Metoprolol Tartrate ND 70209168731 25 MG Orally Act ailyn 1 tablet Twice a day with food Metformin HCl ND 02335971766 1000 MG Orally Active 1 tablet Twice a day with a meal Amlodipine Besylate [facility] 85233031673 2.5 MG Orally Ac tive 1 tablet Once a day Gabapentin [facility] 32635921046 300 MG Orally Active 1 c apsule Three times a day Lisinopril [facility] 06882965854 10 MG Orally Active 1 ta blet Once a day Results No Known Results Summary Purpose eClinicalWorks Submission
--- OUTSIDE RECORDS SUMMARY | 2019-11-06 18:55 | XMS REPORT ---
:1950 Author Organization [employer] Care Team Providers Name Role Phone Christen Karyna Provider Role Unavailable Allergies No Known Allergies Problems Problem Type Condition Code Onset Dates Condition Statu s Problem Anemia, unspecified type D64.9 Act ailyn Problem Abnormal renal function test R94.4 Active Problem Uncontrolled type 2 diabetes E11.65 Active mellitus with hyperglycemia Problem Onychomycosis B35.1 Active Problem Skin lesions L98.9 Active Problem Skin cancer C44.90 Active Problem Blurry vision, bilateral H53.8 Act ailyn Problem Decreased sensation of foot R20.8 Active Problem Paresthesias R20.2 Active Problem Right leg paresthesias R20.2 Activ e Problem Essential hypertension I10 Activ e Problem History of left below knee Z89.512 A ctive amputation Problem Right foot pain M79.671 Active Problem Diabetes E11.9 Active Problem Heavy sensation of lower extremity R29.898 Active Medications No Known Medications Results No Known Results Summary Purpose eClinicalWorks Submission
--- OUTSIDE RECORDS SUMMARY | 2019-11-06 18:55 | XMS REPORT ---
:1950 Author Organization [employer] Care Team Providers Name Role Phone Karyna Velásquez Provider Role Unavailable Allergies, Adverse Reactions, Alerts Substance Reaction Event Type N.K.D.A. Info Not Available Non Drug Allergy Problems Problem Type Condition Code Onset Dates Condition Statu s Problem Heavy sensation of lower extremity R29.898 Active Problem Uncontrolled type 2 diabetes E11.65 Active mellitus with hyperglycemia Problem Anemia, unspecified type D64.9 Act ailyn Problem Onychomycosis B35.1 Active Problem Skin lesions L98.9 Active Problem Skin cancer C44.90 Active Problem Decreased sensation of foot R20.8 Active Problem Abnormal renal function test R94.4 Active Problem Paresthesias R20.2 Active Problem Right leg paresthesias R20.2 Activ e Assessment Skin cancer C44.90 Active Assessment Onychomycosis B35.1 Active Assessment Essential hypertension I10 Activ e Assessment Skin lesions L98.9 Active Problem Diabetes E11.9 Active Problem Essential hypertension I10 Activ e Assessment Paresthesias R20.2 Active Problem History of left below knee Z89.512 A ctive amputation Problem Right foot pain M79.671 Active Medications Medication Code Code Instructions Start End Status Dosage System Date Date Amlodipine Besylate ND 70159217045 2.5 MG Orally Ac tive 1 tablet Once a day Lisinopril ND 88351098257 10 MG Orally Active 1 ta blet Once a day Gabapentin ND 86550317519 300 MG Orally Active 1 c apsule Three times a day Ferrous Sulfate ND 13101320608 325 (65 Fe) MG Activ e 1 tablet Orally Twice daily Hydrochlorothiazide ND 09884914645 25 MG Orally Act ailyn 1 tablet Once a day in the morning Metoprolol Tartrate ND 20778994007 25 MG Orally Act ailyn 1 tablet Twice a day with food Metformin HCl ND 87579434229 1000 MG Orally Active 1 tablet Twice a day with a meal Pantoprazole Sodium ND 08505654409 40 MG Orally Act ailyn 1 tablet Once daily Results No Known Results Summary Purpose eClinicalWorks Submission
--- OUTSIDE RECORDS SUMMARY | 2019-11-06 18:55 | XMS REPORT ---
:1950 Author Organization [facility] t Address [address] [place] [address] [place] [address] Care Team Providers Name Role Phone Unavailable Unavailable Unavailable Problems Condition Condition Condition Status Onset Resolution Last Treatin g Comments Name Details Category Date Date Treatment Clinician Date Uncontrolle Uncontrolle Diagnosis Active d type 2 d type 2 diabetes diabetes mellitus mellitus with with hyperglycem hyperglycem ia ia Essential Essential Problem Active hypertensio hypertensio n n History of History of Diagnosis Active left below left below knee knee amputation amputation Heavy Heavy Problem Active sensation sensation of lower of lower extremity extremity Right foot Right foot Problem Active pain pain Anemia, Anemia, Diagnosis Active unspecified unspecified type type Diabetes Diabetes Problem Active Abnormal Abnormal Diagnosis Active renal renal function function test test Decreased Decreased Problem Active sensation sensation of foot of foot Onychomycos Onychomycos Problem Active is is Skin Skin Problem Active lesions lesions Skin cancer Skin cancer Problem Active Right leg Right leg Problem Active paresthesia paresthesia s s Blurry Blurry Diagnosis Active vision, vision, bilateral bilateral Allergies, Adverse Reactions, Alerts This patient has no known allergies or adverse reactions. Medications Ordered Filled Start Stop Current Ordering Indication Dosage Frequency Signature Comments Components Medication Medication Date Date Medication? Clinician (SIG) Name Name Lisinopril Lisinopril Yes Karyna 1 tablet [place] Hydrochloro Hydrochloro Yes Karyna 1 tablet thiazide thiazide Millender in the morning Pantoprazol Pantoprazol Yes Karyna 1 tablet e Sodium e Sodium Millender Metoprolol Metoprolol Yes Karyna 1 tablet Tartrate Tartrate Millender with food Metformin Metformin Yes Karyna 1 tablet HCl HCl Millender with a meal Ferrous Ferrous Yes Karyna 1 tablet Sulfate Sulfate Millender Amlodipine Amlodipine Yes Karyna 1 tablet Besylate Besylate Millender Gabapentin Gabapentin Yes Karyna 1 capsule Millender Encounters Start End Encounter Admission Attending Care Care Encounter Date/Time Date/Time Type Type Clinicians Facility Department ID 2019-09-21 2019-09-21 [facility] [id number] 21:47:00 21:47:00 [facility] 2019-09-19 2019-09-19 [facility] [id number] 13:30:00 13:30:00 [facility] 2019-09-10 2019-09-10 [facility] [id number] 10:15:00 10:15:00 [facility] 2019-06-20 2019-06-20 [facility] [id number] 13:20:00 13:20:00 [facility] 2019-03-21 2019-03-21 [facility] [id number] 11:20:00 11:20:00 [facility]
--- OUTSIDE RECORDS SUMMARY | 2019-11-06 18:55 | XMS REPORT ---
:1950 Author Organization eClinicalWorks Care Team Providers Name Role Phone Karyna Velásquez Provider Role Unavailable Allergies, Adverse Reactions, Alerts Substance Reaction Event Type N.K.D.A. Info Not Available Non Drug Allergy Problems Problem Type Condition Code Onset Dates Condition Statu s Problem Anemia, unspecified type D64.9 Act ailyn Problem Heavy sensation of lower extremity R29.898 Active Problem Abnormal renal function test R94.4 Active Problem Uncontrolled type 2 diabetes E11.65 Active mellitus with hyperglycemia Problem Decreased sensation of foot R20.8 Active Problem History of left below knee Z89.512 A ctive amputation Problem Right foot pain M79.671 Active Problem Essential hypertension I10 Activ e Problem Diabetes E11.9 Active Assessment History of left below knee Z89.512 A ctive amputation Assessment Heavy sensation of lower extremity R29.898 Active Assessment Anemia, unspecified type D64.9 Act ailyn Assessment Uncontrolled type 2 diabetes E11.65 Active mellitus with hyperglycemia Assessment Decreased sensation of foot R20.8 Active Assessment Abnormal renal function test R94.4 Active Assessment Right foot pain M79.671 Active Assessment Essential hypertension I10 Activ e Medications Medication Code Code Instructions Start End Status Dosage System Date Date Gabapentin [facility] 52929432359 300 MG Orally Active 1 c apsule Three times a day Ferrous Sulfate [facility] 66135687088 325 (65 Fe) MG Activ e 1 tablet Orally Twice daily Amlodipine Besylate ND 96955303391 2.5 MG Orally Ac tive 1 tablet Once a day Lisinopril ND 81508914276 10 MG Orally Active 1 ta blet Once a day Metformin HCl ND 38633403307 1000 MG Orally Active 1 tablet Twice a day with a meal Hydrochlorothiazide ND 86526083597 25 MG Orally Act ailyn 1 tablet Once a day in the morning Pantoprazole Sodium ND 76569594895 40 MG Orally Act ailyn 1 tablet Once daily Metoprolol Tartrate ND 45643354233 25 MG Orally Act ailyn 1 tablet Twice a day with food Results No Known Results Summary Purpose eClinicalWorks Submission
[2019-11-06 20:04] LABS: Absolute Lymphocytes (CBC) 1.2 K/uL (0.7-4.9); Basophils % 0.9 % (0-1.3); Hematocrit 24.2 % (39.6-49.0); Lymphocytes % 19.4 % (15.3-44.8); MPV 9.9 fL (7.6-11.3); RBC Red Blood Cell Count 2.96 M/uL (4.33-5.43)
[2019-11-06] MEDS ORDERED: CLINDAMYCIN 600MG/D5W 600 MG/50 ML BAG IV ONE (20:06)
[2019-11-06 20:13] LABS: Potassium 4.5 mmol/L (3.5-5.1)
[2019-11-06] MEDS ORDERED: ACETAMINOPHEN 500 MG TAB ONE (20:26)
[2019-11-06] MEDS ORDERED: MUPIROCIN 2% OINT 22GM TUBE TOP ONE (21:03)
--- NOTE | 2019-11-06 21:06 | EDPHYS ---
Physician Documentation [facility] Name: Amaury Matamoros Age: 68 yrs Sex: Male : 1950 Arrival Date: 11/06/2019 Time: 18:54 Bed 26 Private MD: ED Physician Nic Butcher HPI: 11/06 06:40 This 68 yrs old Male presents to ER via Wheelchair with complaints of Skin tw4 Sore(s). 06:40 The patient presents with cellulitis of the left knee. Description: The affected area tw4 is very small, localized. Onset: The symptoms/episode began/occurred today. Associated signs and symptoms: The patient has no apparent associated signs or symptoms. Severity of symptoms: At their worst the symptoms were mild, in the emergency department the symptoms are unchanged. The patient has not experienced similar symptoms in the past. Historical: - Allergies: 11/05 19:18 PENICILLINS; ls4 - PMHx: 19:18 Cellulitis; Diabetes - NIDDM; Hypertension; ls4 - PSHx: 19:24 BKA Left; ca1 - Immunization history:: Adult Immunizations not up to date, Last tetanus immunization: unknown, Flu vaccine is not up to date. - Social history:: Smoking status: Patient reports the use of cigarette tobacco products, denies chronic smoking, but will smoke occasionally. ROS: 11/06 06:40 Constitutional: Negative for fever, chills, and weight loss, Eyes: Negative for injury, tw4 pain, redness, and discharge, Cardiovascular: Negative for chest pain, palpitations, and edema, Respiratory: Negative for shortness of breath, cough, wheezing, and pleuritic chest pain, Abdomen/GI: Negative for abdominal pain, nausea, vomiting, diarrhea, and constipation, Back: Negative for injury and pain. Skin: Positive for erythema. Exam: 06:40 Constitutional: This is a well developed, well nourished patient who is awake, alert, tw4 and in no acute distress. Head/Face: Normocephalic, atraumatic. Chest/axilla: Normal chest wall appearance and motion. Nontender with no deformity. No lesions are appreciated. Cardiovascular: Regular rate and rhythm with a normal S1 and S2. No gallops, murmurs, or rubs. Normal PMI, no JVD. No pulse deficits. Respiratory: Lungs have equal breath sounds bilaterally, clear to auscultation and percussion. No rales, rhonchi or wheezes noted. No increased work of breathing, no retractions or nasal flaring. Abdomen/GI: Soft, non-tender, with normal bowel sounds. No distension or tympany. No guarding or rebound. No evidence of tenderness throughout. Back: No spinal tenderness. No costovertebral tenderness. Full range of motion. 06:40 Skin: cellulitis, that is mild, well demarcated, on the medial aspect of left knee. Vital Signs: 11/05 19:21 BP 182 / 88; Pulse 82; Resp 16; Temp 97.9(TE); Pulse Ox 100% on R/A; Weight 58.97 kg ca1 (R); Height 5 ft. 2 in. (157.48 cm) (R); Pain 10/10; 20:33 BP 151 / 81; Pulse 74; Resp 14; Pulse Ox 99% on R/A; Pain 5/10; ls4 19:21 Body Mass Index 23.78 (58.97 kg, 157.48 cm) ca1 MDM: 19:38 Patient medically screened. tw4 11/06 06:40 Differential diagnosis: cellulitis. Data reviewed: vital signs, nurses notes. Data tw4 interpreted: Pulse oximetry: Interpretation: normal. Counseling: I had a detailed discussion with the patient and/or guardian regarding: the historical points, exam findings, and any diagnostic results supporting the discharge/admit diagnosis, lab results, radiology results. Special discussion: I discussed with the patient/guardian in detail that at this point there is no indication for admission to the hospital. It is understood, however, that if the symptoms persist or worsen the patient needs to return immediately for re-evaluation. 11/05 19:31 Order name: CBC with Diff; Complete Time: 20:18 4 11/05 20:18 Interpretation: Normal except: RBC 2.96; HCT 24.2; HGB 7.7; MCH 25.9; MCHC 31.6. tw4 11/05 19:31 Order name: Basic Metabolic Panel; Complete Time: 20:18 4 11/05 20:19 Interpretation: Normal except: CL 108; GLUC 114; BUN 42; CRE 1.42; GFR 50. tw4 11/05 19:32 Order name: Wound Culture ls4 11/05 19:39 Order name: Knee Left 2 View XRAY tw4 11/05 19:32 Order name: Wound Care; Complete Time: 20:13 ls4 11/05 19:32 Order name: Wound dressing; Complete Time: 20:13 ls4 Administered Medications: 11/05 20:06 Drug: Cleocin 600 mg Route: IVPB; Infused Over: 30 mins; Site: right antecubital; ls4 20:36 Follow up: IV Status: Completed infusion; IV Intake: 50ml ls4 20:20 Drug: Tylenol 1000 mg Route: PO; ls4 20:43 Follow up: Response: No adverse reaction ls4 21:06 Drug: Mupirocin Ointment 2 % 1 application Route: Topical; Site: affected area; ls4 21:10 Follow up: Response: No adverse reaction; Marked relief of symptoms ls4 Disposition: 11/06/19 21:05 Discharged to Home. Impression: Cellulitis of left lower limb. - Condition is Stable. - Discharge Instructions: Cellulitis, Adult. - Prescriptions for Cleocin 300 mg Oral Capsule - take 1 capsule by ORAL route every 6 hours for 10 days; 40 capsule. - Medication Reconciliation Form, Thank You Letter, Antibiotic Education, Prescription Opioid Use form. - Follow up: Private Physician; When: Upon discharge from the Emergency Department; Reason: Recheck today's complaints, Continuance of care, Re-evaluation by your physician. - Problem is new. - Symptoms have improved. Signatures: Dispatcher [employer] Nic Henry MD MD 4 Raya Tavarez RN RN 4 Hailee Munguia RN RN [facility] Corrections: (The following items were deleted from the chart) 21:17 21:05 11/06/2019 21:05 Discharged to Home. Impression: Cellulitis of left lower limb. ls4 Condition is Stable. Forms are Medication Reconciliation Form, Thank You Letter, Antibiotic Education, Prescription Opioid Use. Follow up: Private Physician; When: Upon discharge from the Emergency Department; Reason: Recheck today's complaints, Continuance of care, Re-evaluation by your physician. Problem is new. Symptoms have improved. 4
--- NOTE | 2019-11-06 21:06 | ER ---
Nurse's Notes [facility] Name: Amaury Matamoros Age: 68 yrs Sex: Male : 1950 Arrival Date: 11/06/2019 Time: 18:54 Bed 26 Private MD: Diagnosis: Cellulitis of left lower limb Presentation: 11/05 19:21 Chief complaint: Patient states: Wound on L lateral knee x 6 days. Pt is diabetic and ca1 reports has taken meds to relieve pain but doesn't seem to be working. Pt reports he applied ABX creams on it but is still does not seem to heal. Coronavirus screen: Proceed with normal triage. Patient denies a cough. Patient denies shortness of breath or difficulty breathing. Patient denies measured and/or subjective temperature greater than 100.4F prior to today's visit. Patient denies travel on a cruise ship or to a country the [facility] currently lists as an affected area. Patient denies contact with known and/or suspected case of COVID-19. Ebola Screen: Patient negative for fever greater than or equal to 101.5 degrees Fahrenheit, and additional compatible Ebola Virus Disease symptoms Patient denies exposure to infectious person. Patient denies travel to an Ebola-affected area in the 21 days before illness onset. No symptoms or risks identified at this time. Initial Sepsis Screen: Does the patient meet any 2 criteria? No. Patient's initial sepsis screen is negative. Does the patient have a suspected source of infection? No. Patient's initial sepsis screen is negative. Risk Assessment: Do you want to hurt yourself or someone else? Patient reports no desire to harm self or others. Onset of symptoms was November 06, 2019. 19:21 Method Of Arrival: Wheelchair ca1 19:21 Acuity: ALEJANDRA 3 ca1 Triage Assessment: 20:44 General: Appears in no apparent distress. Behavior is calm, cooperative. ls4 Historical: - Allergies: 19:18 PENICILLINS; ls4 - PMHx: 19:18 Cellulitis; Diabetes - NIDDM; Hypertension; ls4 - PSHx: 19:24 BKA Left; ca1 - Immunization history:: Adult Immunizations not up to date, Last tetanus immunization: unknown, Flu vaccine is not up to date. - Social history:: Smoking status: Patient reports the use of cigarette tobacco products, denies chronic smoking, but will smoke occasionally. Screenin:17 Abuse screen: Denies threats or abuse. Denies injuries from another. Nutritional ls4 screening: No deficits noted. Tuberculosis screening: No symptoms or risk factors identified. Fall Risk None identified. Assessment: 19:14 General: Appears in no apparent distress. comfortable. Pain: Complains of pain in ls4 medial aspect of left thigh Pain currently is 5 out of 10 on a pain scale. Neuro: Level of Consciousness is awake, alert, obeys commands, Oriented to person, place, time, situation. Cardiovascular: Denies chest pain, Capillary refill < 3 seconds Patient's skin is warm and dry. Respiratory: Airway is patent Respiratory effort is even, unlabored, Respiratory pattern is regular. Respiratory: Denies cough, shortness of breath labored breathing, air hunger. GI: Derm: Wound noted medial aspect of left thigh Wound is dime size wound with yellow dry eschar at center. Musculoskeletal: Amputation of bka bilateral Circulation, motion, and sensation intact. Capillary refill < 3 seconds. 20:36 Reassessment: Patient appears in no apparent distress at this time. Patient and/or ls4 family updated on plan of care and expected duration. Pain level reassessed. Patient is alert, oriented x 3, equal unlabored respirations, skin warm/dry/pink. Vital Signs: 19:21 BP 182 / 88; Pulse 82; Resp 16; Temp 97.9(TE); Pulse Ox 100% on R/A; Weight 58.97 kg ca1 (R); Height 5 ft. 2 in. (157.48 cm) (R); Pain 10/10; 20:33 BP 151 / 81; Pulse 74; Resp 14; Pulse Ox 99% on R/A; Pain 5/10; ls4 19:21 Body Mass Index 23.78 (58.97 kg, 157.48 cm) ca1 ED Course: 18:54 Patient arrived in ED. as 19:14 Nic Butcher MD is Attending Physician. tw4 19:15 Raya Tavarez, COURTNEY is Primary Nurse. ls4 19:17 Patient has correct armband on for positive identification. Bed in low position. Call ls4 light in reach. Side rails up X 1. Pulse ox on. NIBP on. 19:24 Triage completed. ca1 19:24 Arm band placed on right wrist. ca1 20:10 Inserted saline lock: 18 gauge in right antecubital area, using aseptic technique. ls4 20:10 No provider procedures requiring assistance completed. Initial lab(s) drawn, by me, ls4 sent to lab. Wound culture swab sent to lab. Patient maintains SpO2 saturation greater than 95% on room air. 20:13 Knee Left 2 View XRAY Sent. ls4 20:28 Knee Left 2 View XRAY In Process Unspecified. EDMS 21:06 IV discontinued, intact, bleeding controlled, No redness/swelling at site. Pressure ls4 dressing applied. Dressings: Band aid x 1 medial aspect of left thigh. Irrigation of ulceration on medial aspect of left thigh irrigated with normal saline Patient tolerated well mupricin applied. Administered Medications: 20:06 Drug: Cleocin 600 mg Route: IVPB; Infused Over: 30 mins; Site: right antecubital; ls4 20:36 Follow up: IV Status: Completed infusion; IV Intake: 50ml ls4 20:20 Drug: Tylenol 1000 mg Route: PO; ls4 20:43 Follow up: Response: No adverse reaction ls4 21:06 Drug: Mupirocin Ointment 2 % 1 application Route: Topical; Site: affected area; ls4 21:10 Follow up: Response: No adverse reaction; Marked relief of symptoms ls4 Intake: 20:36 IV: 50ml; Total: 50ml. ls4 Outcome: 21:05 Discharge ordered by . tw4 21:16 Discharged to home ambulatory. ls4 21:16 Condition: stable 21:16 Discharge instructions given to patient, Instructed on discharge instructions, follow up and referral plans. medication usage, safety practices, wound care, Demonstrated understanding of instructions, follow-up care, medications, wound care, Prescriptions given X 1. 21:17 Patient left the ED. ls4 Signatures: Dispatcher [employer] Jessica Spence Terrence, MD MD tw4 Raya Tavarez RN RN ls4 Hailee Munguia RN RN ca1 Corrections: (The following items were deleted from the chart) 21:09 19:14 Pain: Complains of pain in lateral aspect of right calf Pain currently is 5 out ls4 of 10 on a pain scale. ls4 21:09 19:14 Derm: Wound noted lateral aspect of right calf Wound is dime size wound with ls4 yellow dry eschar at center ls4
--- NOTE | 2019-11-06 21:08 | RAD REPORT ---
EXAM DESCRIPTION: RAD - Knee Left 2 View - 11/06/2019 8:28 pm CLINICAL HISTORY: PAIN, soft tissue wound COMPARISON: Knee Left 3 View dated 03/21/2019 FINDINGS: Patient is below knee amputee. No erosion or destructive changes at the amputation sites. Patient has arterial calcifications. No bone destructive process identified. [place]-shaped calcific ation adjacent to the medial femoral condyle is not an acute finding.No joint effusion seen. No joint space narrowing. No soft tissue abnormality. IMPRESSION: Negative left knee for acute bone or joint finding. No foreign body or suspicious soft tissue finding.
[2019-11-06 21:49] VITALS: TEMP 97.9
[2019-11-06 21:51] VITALS: BP 151/81; O2SAT 99
== END 2019-11-06 21:17 | disposition home or self-care (01) ==
LOC: ER 18:52
DX: L03.116 Cellulitis of left lower limb (principal); I10 Essential (primary) hypertension; Z72.0 Tobacco use; Z88.0 Allergy status to penicillin
CPT/HCPCS: 36415; 80048; 85025; 87070; 87077; 87186; 87205; 96365; 99284

== ENCOUNTER 2019-12-03 18:25 | Emergency (ER) | payer OTHER ==
--- OUTSIDE RECORDS SUMMARY | 2019-12-03 18:27 | XMS REPORT ---
:1950 Author Organization [facility] t Address 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 diabetes Memori a mellitus mellitus l with with [facility] hyperglyce hyperglyce en t [facility] Essential Essential Problem Active [facility] hypertensi hypertensi Estrella kes - on on Memoria l [facility] History of History of Diagnosis Active [facility] left below left below Estrella kes - knee knee Memoria amputation amputation l [facility] Heavy Heavy Problem Active [facility] sensation sensation Luke s - of lower of lower Memori a extremity extremity l [facility] Right foot Right foot Problem Active [facility] pain pain [facility] Anemia, Anemia, Diagnosis Active [facility] unspecifie unspecifie Estrella kes - d type d type Memoria l [facility] Diabetes Diabetes Problem Active [facility] Abnormal Abnormal Diagnosis Active [facility] renal renal [facility] - function function Memori a test test l [facility] Decreased Decreased Problem Active [facility] sensation sensation Luke s - of foot of foot Memoria l [facility] Onychomyco Onychomyco Problem Active [facility] sis sis [facility] Skin Skin Problem Active [facility] lesions lesions [facility] - Memoria l [facility] Skin Skin Problem Active [facility] cancer cancer [facility] - Memoria l [facility] Right leg Right leg Problem Active [facility] paresthesi paresthesi Estrella kes - as as Memoria l [facility] Blurry Blurry Diagnosis Active [facility] vision, vision, [facility]ukes - bilateral bilateral Marcel kathy l [facility]ics Allergies, Adverse Reactions, Alerts This patient has no known allergies or adverse reactions. Medications Ordered Filled Start Stop Current Ordering Indication Dosage Frequency Signature Comments Components Source Medication Medication Date Date Medication? Clinician (SIG) Name Name Lisinopril Lisinopril Yes Karyna [address] [facility] Millender [facility] Hydrochloro Hydrochloro Yes Karyna [address] [facility] thiazide thiazide Millender in the [facility] - morning [facility] Pantoprazol Pantoprazol Yes Karyna [address] [facility] e Sodium e Sodium Millender Estrella [facility] Metoprolol Metoprolol Yes Karyna [address] [facility] Tartrate Tartrate Millender with food [facility] Metformin Metformin Yes Karyna [address] [facility] HCl HCl Millender with a Lukes - meal [facility] Ferrous Ferrous Yes Karyna [address] [facility] Sulfate Sulfate Millender [facility] Amlodipine Amlodipine Yes Karyna [address] [facility] Besylate Besylate Millender [facility] Gabapentin Gabapentin Yes Karyna [address] [facility] Millender [facility] Procedures This patient has no known procedures. Encounters Start End Encounter Admission Attending Care Care Encounter Source Date/Time Date/Time Type Type Clinicians Facility Department ID 2019-09-21 2019-09-21 Outpatient Giana [facility] [id number] [facility] 21:47[facility]00 21:47:00 [facility] 2019-09-19 2019-09-19 Outpatient Giana [facility] [id number] [facility] 13:30:00 13:30:00 [facility] Medicine [facility] 2019-09-10 2019-09-10 [place]patient [place] [id number] [facility] 10:15:00 10:15:00 [facility] 2019-06-20 2019-06-20 [place]patient [place] [id number] [facility] 13:20:00 13:20:00 [facility] 2019-03-21 2019-03-21 Outpatient G[place] [id number] [facility] 11:20:00 11:20:00 [facility] Medicine Medicine Outpat[facility] ent Clinics Results This patient has no known results.
--- OUTSIDE RECORDS SUMMARY | 2019-12-03 18:27 | XMS REPORT ---
[...] Status Dosage System Date Date Lisinopril ND 62403732404 10 MG Orally Active 1 ta blet Once a day Hydrochlorothiazide ND 40863701898 25 MG Orally Act ailyn 1 tablet Once a day in the morning Pantoprazole Sodium ND 99481276399 40 MG Orally Act ailyn 1 tablet Once daily Gabapentin ND 52809437841 300 MG Orally Active 1 c apsule Three times a day Metoprolol Tartrate ND 07616162437 25 mg Orally Act ailyn 1 tablet Twice a day with food Metformin HCl ND 50440368890 1000 MG Orally Active 1 tablet twice a day with a meal Ferrous Sulfate ND 17942197950 325 (65 Fe) MG Activ e 1 tablet Orally Twice daily Amlodipine Besylate ND 42021132579 2.5 MG Orally Ac tive 1 tablet Once a day Results Name Result Date Reference Range Unit Abnormali ty Flag HEMOGLOBIN A1C ----A1C 5.9% [id number] GLUCOSE FINGER ----Result 154--RBS [id number] Summary Purpose eClinicalWorks Submission
--- OUTSIDE RECORDS SUMMARY | 2019-12-03 18:28 | XMS REPORT ---
[...] Status Dosage System Date Date Hydrochlorothiazide ND 80254068640 25 MG Orally Act ailyn 1 tablet Once a day in the morning Ferrous Sulfate ND 35958573285 325 (65 Fe) MG Activ e 1 tablet Orally Twice daily Pantoprazole Sodium ND 49811973592 40 MG Orally Act ailyn 1 tablet Once daily Metoprolol Tartrate ND 62616638412 25 MG Orally Act ailyn 1 tablet Twice a day with food Metformin HCl ND 09207732317 1000 MG Orally Active 1 tablet Twice a day with a meal Amlodipine Besylate [facility] 74717455342 2.5 MG Orally Ac tive 1 tablet Once a day Gabapentin [facility] 29405837545 300 MG Orally Active 1 c apsule Three times a day Lisinopril [facility] 31299532047 10 MG Orally Active 1 ta blet Once a day Results No Known Results Summary Purpose eClinicalWorks Submission
--- OUTSIDE RECORDS SUMMARY | 2019-12-03 18:28 | XMS REPORT ---
[...] End Status Dosage System Date Date Gabapentin [facility] 97613236976 300 MG Orally Active 1 c apsule Three times a day Ferrous Sulfate [facility] 53418816901 325 (65 Fe) MG Activ e 1 tablet Orally Twice daily Amlodipine Besylate ND 73755018148 2.5 MG Orally Ac tive 1 tablet Once a day Lisinopril ND 63416655171 10 MG Orally Active 1 ta blet Once a day Metformin HCl ND 83709233809 1000 MG Orally Active 1 tablet Twice a day with a meal Hydrochlorothiazide ND 43955915156 25 MG Orally Act ailyn 1 tablet Once a day in the morning Pantoprazole Sodium ND 02879866563 40 MG Orally Act ailyn 1 tablet Once daily Metoprolol Tartrate ND 59209035703 25 MG Orally Act ailyn 1 tablet Twice a day with food Results No Known Results Summary Purpose eClinicalWorks Submission
--- OUTSIDE RECORDS SUMMARY | 2019-12-03 18:28 | XMS REPORT ---
[...] Dosage System Date Date Amlodipine Besylate ND 90948365132 2.5 MG Orally Ac tive 1 tablet Once a day Lisinopril ND 34185736133 10 MG Orally Active 1 ta blet Once a day Gabapentin ND 21564095435 300 MG Orally Active 1 c apsule Three times a day Ferrous Sulfate ND 68844714089 325 (65 Fe) MG Activ e 1 tablet Orally Twice daily Hydrochlorothiazide ND 46414374374 25 MG Orally Act ailyn 1 tablet Once a day in the morning Metoprolol Tartrate ND 69071295598 25 MG Orally Act ailyn 1 tablet Twice a day with food Metformin HCl ND 38236351443 1000 MG Orally Active 1 tablet Twice a day with a meal Pantoprazole Sodium ND 81788357891 40 MG Orally Act ailyn 1 tablet Once daily Results No Known Results Summary Purpose eClinicalWorks Submission
[2019-12-03] MEDS ORDERED: CLINDAMYCIN 600MG/D5W 600 MG/50 ML BAG IV ONE (20:09)
[2019-12-03 20:22] LABS: Absolute Lymphocytes (CBC) 1.8 K/uL (0.7-4.9); Basophils % 1.1 % (0-1.3); Hematocrit 22.8 % (39.6-49.0); Lymphocytes % 26.6 % (15.3-44.8); MPV 9.8 fL (7.6-11.3); RBC Red Blood Cell Count 2.87 M/uL (4.33-5.43)
[2019-12-03] MEDS ORDERED: HYDROCODONE/APAP 5/325 MG TAB ONE (20:36)
[2019-12-03 21:06] LABS: Bilirubin Total 0.3 mg/dL (0.2-1.0); Protein, Total 8.2 g/dL (6.4-8.2)
[2019-12-03 21:16] LABS: Potassium 4.1 mmol/L (3.5-5.1)
--- NOTE | 2019-12-03 21:30 | EDPHYS ---
Physician Documentation [facility] Name: Amaury Matamoros Age: 68 yrs Sex: Male : 1950 Arrival Date: 12/03/2019 Time: 18:27 Bed 13 Private MD: ED Physician Nic Butcher HPI: 12/02 23:48 This 68 yrs old Male presents to ER via Wheelchair with complaints of Knee tw4 Pain - swelling, Numbness - r foot. 23:48 The patient presents with pain, that is chronic. The complaints affect the left knee. tw4 Onset: The symptoms/episode began/occurred 1 week(s) ago. Modifying factors: The symptoms are alleviated by nothing. the symptoms are aggravated by nothing. Severity of symptoms: At their worst the symptoms were moderate, in the emergency department the symptoms are unchanged. The patient has experienced similar episodes in the past, several times, chronically. Historical: - Allergies: 19:05 PENICILLINS; ca1 - Home Meds: 19:05 ferrous sulfate 325 mg (65 mg iron) Oral tab daily [Active]; gabapentin 300 mg Oral cap ca1 1 cap 3 times per day [Active]; metformin 1,000 mg Oral tab 1 tab 2 times per day [Active]; metoprolol tartrate 25 mg Oral tab 1 tab 2 times per day [Active]; - PMHx: 19:05 Cellulitis; Diabetes - NIDDM; Hypertension; ca1 - PSHx: 19:05 BKA Left; ca1 - Immunization history:: Adult Immunizations up to date. - Social history:: Smoking status: Patient reports the use of cigarette tobacco products, denies chronic smoking, but will smoke occasionally. ROS: 23:48 Constitutional: Negative for fever, chills, and weight loss, Eyes: Negative for injury, tw4 pain, redness, and discharge, Cardiovascular: Negative for chest pain, palpitations, and edema, Respiratory: Negative for shortness of breath, cough, wheezing, and pleuritic chest pain, Abdomen/GI: Negative for abdominal pain, nausea, vomiting, diarrhea, and constipation, Back: Negative for injury and pain, Skin: Negative for injury, rash, and discoloration, Neuro: Negative for headache, weakness, numbness, tingling, and seizure. 23:48 MS/extremity: Positive for erythema, pain, swelling, tenderness, Negative for injury or acute deformity, abrasion, contusion, decreased range of motion. Exam: 23:48 Constitutional: This is a well developed, well nourished patient who is awake, alert, tw4 and in no acute distress. Head/Face: Normocephalic, atraumatic. Chest/axilla: Normal chest wall appearance and motion. Nontender with no deformity. No lesions are appreciated. Cardiovascular: Regular rate and rhythm with a normal S1 and S2. No gallops, murmurs, or rubs. Normal PMI, no JVD. No pulse deficits. Respiratory: Lungs have equal breath sounds bilaterally, clear to auscultation and percussion. No rales, rhonchi or wheezes noted. No increased work of breathing, no retractions or nasal flaring. Abdomen/GI: Soft, non-tender, with normal bowel sounds. No distension or tympany. No guarding or rebound. No evidence of tenderness throughout. Neuro: Awake and alert, GCS 15, oriented to person, place, time, and situation. Cranial nerves II-XII grossly intact. Motor strength 5/5 in all extremities. Sensory grossly intact. Cerebellar exam normal. Normal gait. 23:48 Musculoskeletal/extremity: Extremities: noted in the left knee: erythema, pain. Vital Signs: 18:59 BP 175 / 93; Pulse 79; Resp 18 S; Temp 98.3(TE); Pulse Ox 100% on R/A; Weight 61.23 kg ca1 (R); Height 5 ft. 2 in. (157.48 cm) (R); Pain 8/10; 20:58 BP 166 / 82; Pulse 76; Resp 18; Pulse Ox 100% on R/A; mg2 21:43 BP 165 / 80; Pulse 80; Resp 18; Temp 98; Pulse Ox 100% on R/A; mg2 18:59 Body Mass Index 24.69 (61.23 kg, 157.48 cm) ca1 MDM: 19:28 Patient medically screened. tw4 23:48 Differential diagnosis: open fracture, closed fracture, contusion. Data reviewed: vital tw4 signs, nurses notes. Data interpreted: Pulse oximetry: Interpretation:. Counseling: I had a detailed discussion with the patient and/or guardian regarding: the historical points, exam findings, and any diagnostic results supporting the discharge/admit diagnosis. Medication response: norco. Response to treatment: the patient's symptoms have mildly improved after treatment, and as a result, I will discharge patient. Special discussion: I discussed with the patient/guardian in detail that at this point there is no indication for admission to the hospital. It is understood, however, that if the symptoms persist or worsen the patient needs to return immediately for re-evaluation. 12/02 19:58 Order name: CBC with Diff; Complete Time: 20:53 tw4 12/02 20:54 Interpretation: Normal except: RBC 2.87; HGB 7.7; HCT 22.8; MCV 79.5. tw4 12/02 19:58 Order name: CMP; Complete Time: 21:28 tw4 12/02 21:28 Interpretation: Normal except: CL 111; CO2 17; GLUC 170; BUN 35; CRE 1.41; GFR 50. tw4 Administered Medications: 20:10 Drug: Cleocin 600 mg Route: IVPB; Infused Over: 30 mins; Site: right forearm; mg2 21:43 Follow up: Response: No adverse reaction; IV Status: Completed infusion mg2 20:32 Drug: [place] 5 mg-325 mg 1 tabs Route: PO; mg2 21:43 Follow up: Response: No adverse reaction; Marked relief of symptoms; RASS: Alert and mg2 Calm (0) Disposition: 12/03/19 21:29 Discharged to Home. Impression: Other chronic pain, Cellulitis of right lower limb. - Condition is Stable. - Discharge Instructions: Cellulitis, Adult, Chronic Pain. - Prescriptions for Tramadol 50 mg Oral Tablet - take 1 tablet by ORAL route every 8 hours as needed; 5 tablet. Cleocin 300 mg Oral Capsule - take 1 capsule by ORAL route every 6 hours for 10 days; 40 capsule. Bactrim DS 800- 160 mg Oral Tablet - take 1 tablet by ORAL route every 12 hours for 10 days; 20 tablet. - Medication Reconciliation Form, Thank You Letter, Antibiotic Education, Prescription Opioid Use form. - Follow up: Private Physician; When: Upon discharge from the Emergency Department; Reason: Recheck today's complaints, Continuance of care, Re-evaluation by your physician. - Problem is an ongoing problem. - Symptoms are unchanged. Signatures: Dispatcher [employer] Nic Henry MD MD tw4 Eber Peck RN RN mg2 Hailee Munguia RN RN ca1 Corrections: (The following items were deleted from the chart) 21:44 21:29 12/03/2019 21:29 Discharged to Home. Impression: Other chronic pain; Cellulitis mg2 of right lower limb. Condition is Stable. Forms are Medication Reconciliation Form, Thank You Letter, Antibiotic Education, Prescription Opioid Use. Follow up: Private Physician; When: Upon discharge from the Emergency Department; Reason: Recheck today's complaints, Continuance of care, Re-evaluation by your physician. Problem is an ongoing problem. Symptoms are unchanged. tw4
--- NOTE | 2019-12-03 21:30 | ER ---
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 Reports R foot pain and paleness, states, "like it;s not being circulating". Coronavirus screen: Proceed with normal triage. Patient denies a cough. Patient denies shortness of breath or difficulty breathing. Patient denies measured and/or subjective temperature greater than 100.4F prior to today's visit. Patient denies travel on a cruise ship or to a country the [facility] currently lists as an affected area. Patient denies contact with known and/or suspected case of COVID-19. Ebola Screen: Patient negative for fever greater than or equal to 101.5 degrees Fahrenheit, and additional compatible Ebola Virus Disease symptoms Patient denies exposure to infectious person. Patient denies travel to an Ebola-affected area in the 21 days before illness onset. No symptoms or risks identified at this time. Initial Sepsis Screen: Does the patient meet any 2 criteria? No. Patient's initial sepsis screen is negative. Does the patient have a suspected source of infection? No. Patient's initial sepsis screen is negative. Risk Assessment: Do you want to hurt yourself or someone else? Patient reports no desire to harm self or others. Onset of symptoms was December 03, 2019. 18:59 Method Of Arrival: Wheelchair ca1 18:59 Acuity: ALEJANDRA 3 ca1 Historical: - Allergies: 19:05 PENICILLINS; ca1 - Home Meds: 19:05 ferrous sulfate 325 mg (65 mg iron) Oral tab daily [Active]; gabapentin 300 mg Oral cap ca1 1 cap 3 times per day [Active]; metformin 1,000 mg Oral tab 1 tab 2 times per day [Active]; metoprolol tartrate 25 mg Oral tab 1 tab 2 times per day [Active]; - PMHx: 19:05 Cellulitis; Diabetes - NIDDM; Hypertension; ca1 - PSHx: 19:05 BKA Left; ca1 - Immunization history:: Adult Immunizations up to date. - Social history:: Smoking status: Patient reports the use of cigarette tobacco products, denies chronic smoking, but will smoke occasionally. Screenin:44 Abuse screen: Denies threats or abuse. Denies injuries from another. Abuse screen: mg2 Denies threats or abuse. Nutritional screening: No deficits noted. Tuberculosis screening: No symptoms or risk factors identified. Fall Risk IV access (20 points). Assessment: 20:42 General: Appears in no apparent distress. comfortable, Behavior is calm, cooperative. mg2 Pain: Complains of pain in right leg and left leg. Neuro: Level of Consciousness is awake, alert, obeys commands, Oriented to person, place, time, situation. Cardiovascular: Capillary refill < 3 seconds Patient's skin is warm and dry. Respiratory: Airway is patent Respiratory effort is even, unlabored, Respiratory pattern is regular, symmetrical. GI: No signs and/or symptoms were reported involving the gastrointestinal system. : No signs and/or symptoms were reported regarding the genitourinary system. EENT: No signs and/or symptoms were reported regarding the EENT system. Derm: Skin is pink, warm \\T\\ dry. normal. Musculoskeletal: Amputation of redness noted in the left kne. 20:44 Reassessment: critical lab result relayed to Dr barnhart- HGB of 7.7. mg2 Vital Signs: 18:59 BP 175 / 93; Pulse 79; Resp 18 S; Temp 98.3(TE); Pulse Ox 100% on R/A; Weight 61.23 kg ca1 (R); Height 5 ft. 2 in. (157.48 cm) (R); Pain 8/10; 20:58 BP 166 / 82; Pulse 76; Resp 18; Pulse Ox 100% on R/A; mg2 21:43 BP 165 / 80; Pulse 80; Resp 18; Temp 98; Pulse Ox 100% on R/A; mg2 18:59 Body Mass Index 24.69 (61.23 kg, 157.48 cm) ca1 ED Course: 18:27 Patient arrived in ED. as 19:04 Triage completed. ca1 19:05 Arm band placed on right wrist. ca1 19:27 Nic Barnhart MD is Attending Physician. tw4 19:53 Gardose, Eber, RN is Primary Nurse. mg2 20:10 Inserted saline lock: 20 gauge in right forearm, using aseptic technique. Blood mg2 collected. 20:44 Patient has correct armband on for positive identification. Pulse ox on. NIBP on. Door mg2 closed. Warm blanket given. 20:44 No provider procedures requiring assistance completed. mg2 21:43 IV discontinued, intact, bleeding controlled, No redness/swelling at site. Pressure mg2 dressing applied. Administered Medications: 20:10 Drug: Cleocin 600 mg Route: IVPB; Infused Over: 30 mins; Site: right forearm; mg2 21:43 Follow up: Response: No adverse reaction; IV Status: Completed infusion mg2 20:32 Drug: [place] 5 mg-325 mg 1 tabs Route: PO; mg2 21:43 Follow up: Response: No adverse reaction; Marked relief of symptoms; RASS: Alert and mg2 Calm (0) Outcome: 21:29 Discharge ordered by . tw4 :44 Discharged to home via wheelchair. mg2 21:44 Condition: stable 21:44 Discharge instructions given to patient, Instructed on discharge instructions, follow up and referral plans. medication usage, Demonstrated understanding of instructions, follow-up care, medications, Prescriptions given X 3. 21:44 Patient left the ED. mg2 Signatures: Jessica López Terrence, MD MD tw4 Eber Peck, COURTNEY RN mg2 Hailee Munguia RN RN ca1
[2019-12-03 21:53] VITALS: O2SAT 100
[2019-12-03 21:55] VITALS: BP 165/80; TEMP 98
== END 2019-12-03 21:44 | disposition home or self-care (01) ==
LOC: ER 18:25
DX: L03.116 Cellulitis of left lower limb (principal); G89.29 Other chronic pain; I10 Essential (primary) hypertension; E11.9 Type 2 diabetes mellitus without complications; Z88.0 Allergy status to penicillin; Z72.0 Tobacco use
CPT/HCPCS: 36415; 80053; 85025; 96365; 96366; 99284

== ENCOUNTER 2020-01-25 16:06 | Inpatient (IN) | payer OTHER ==
--- OUTSIDE RECORDS SUMMARY | 2020-01-25 16:08 | XMS REPORT | Continuity of Care Document ---
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 Memori a mellitus mellitus l with with [facility] hyperglyce hyperglyce en t [facility] Essential Essential Problem Active [facility] hypertensi hypertensi Estrella kes - on on Memoria l [facility] ent Clinics History of History of Diagnosis Active [facility] left below left below Estrella kes - knee knee Memoria amputation amputation l [facility] Heavy Heavy Problem Active [facility] sensation sensation Luke s - of lower of lower Memori a extremity extremity l [facility] Right foot Right foot Problem Active [facility] pain pain [facility] - Memoria l [facility] Anemia, Anemia, Diagnosis Active [facility] unspecifie unspecifie Estrella kes - d type d type Memoria l [facility] Diabetes Diabetes Problem Active [facility] - Memoria l [facility] Abnormal Abnormal Diagnosis Active [facility] renal renal [facility] - function function Memori a test test l [facility] Decreased Decreased Problem Active [facility] sensation sensation Luke s - of foot of foot Memoria l [facility] Clinics Onychomyco Onychomyco Problem Active [facility] sis sis [facility] - Memoria l [facility] Skin Skin Problem Active [facility] lesions lesions [facility] - Memoria l [facility] Skin Skin Problem Active [facility] cancer cancer [facility] - Memoria l [facility] Right leg Right leg Problem Active [facility] paresthesi paresthesi Estrella kes - as as Memoria l [facility] ent Clinics Blurry Blurry Diagnosis Active [facility] vision, vision, [facility]ukes - bilateral bilateral Marcel kathy l [facility] ent Clinics Allergies, Adverse Reactions, Alerts This patient has no known allergies or adverse reactions. Medications Ordered Filled Start Stop Current Ordering Indication Dosage Frequency Signature Comments Components Source Medication Medication Date Date Medication? Clinician (SIG) Name Name Lisinopril Lisinopril Yes Karyna [address] [facility] Hydrochloro Hydrochloro Yes Karyna [address] [facility] thiazide thiazide [place] in the [facility] - morning [place] [facility] Pantoprazol Pantoprazol Yes Karyna [address] [facility] e Sodium e Sodium [facility] Metoprolol Metoprolol Yes Karyna [address] [facility] Tartrate Tartrate [facility] Metformin Metformin Yes Karyna [address] [facility] HCl HCl [facility] with a [facility] - meal [place] [facility] Ferrous Ferrous Yes Karyna [address] [facility] Sulfate Sulfate [facility] Amlodipine Amlodipine Yes Karyna [address] [facility] Besylate Besylate [facility] Gabapentin Gabapentin Yes Karyna [address] [facility] Procedures This patient has no known procedures. Encounters Start End Encounter Admission Attending Care Care Encounter Source Date/Time Date/Time Type Type Clinicians Facility Department ID 2019-09-21 2019-09-21 Outpatient Giana [facility] [id number] [facility] 21:47:00 21:47:00 [facility] ent Clinics 2019-09-19 2019-09-19 Outpatient Giana [facility] [id number] [facility] 13:30:00 13:30:[address] [facility] Medicine [facility] Clin[facility] 2019-09-10 2019-09-10 [place]patient [place] [id number] [facility] 10:15:00 10:15:00 [facility] 2019-06-20 2019-06-20 [place]patient [place] [id number] [facility] 13:20:00 13:20:[address] [facility] Medicine [facility] Clin[facility] 2019-03-21 2019-03-21 [place]patient [place] [id number] [facility] 11:20:00 11:20:00 [facility] Medicine Outpati ent Clinics Results This patient has no known results.
[2020-01-25] MEDS ORDERED: MORPHINE 4 MG/ML SYR ONE (19:57)
[2020-01-25] MEDS ORDERED: ONDANSETRON 4 MG/2 ML VIAL ONE (19:57)
[2020-01-25 20:06] LABS: Absolute Lymphocytes (CBC) 1.1 K/uL (0.7-4.9); Basophils % 0.1 % (0-1.3); Lymphocytes % 5.7 % (15.3-44.8); MPV 9.9 fL (7.6-11.3); RBC Red Blood Cell Count 2.69 M/uL (4.33-5.43)
[2020-01-25 20:16] LABS: Albumin 2.6 g/dL (3.4-5.0); Bilirubin Direct 0.2 mg/dL (0-0.2); Bilirubin Total 0.4 mg/dL (0.2-1.0); Potassium 3.7 mmol/L (3.5-5.1); Protein, Total 7.2 g/dL (6.4-8.2)
--- NOTE | 2020-01-25 20:57 | RAD REPORT ---
EXAM DESCRIPTION: CT - Abdomen Pelvis Wo Contrast - 01/25/2020 8:42 pm CLINICAL HISTORY: Abdominal pain /vomiting COMPARISON: 2018 TECHNIQUE: Computed axial tomography of the abdomen and pelvis was obtained. IV and oral contrast we re not requested. All CT scans are performed using dose optimization technique as appropriate and may include automated exposure control or mA/KV adjustment according to patient size. FINDINGS: The evaluation of solid organs, vessels and bowel is limited secondary to the lack of con trast administration. Mild left lung opacities Cirrhotic liver The spleen, pancreas, adrenals and kidneys appear grossly normal. No evidence diverticulitis. 5.6 centimeter lipoma subcutaneous tissues upper right hip. Small umbilic al hernia IMPRESSION: Mild left lung opacities consistent with pneumonia. This can be seen with Covid. No acute abnormality in abdomen/pelvis
--- NOTE | 2020-01-25 20:57 | RAD REPORT ---
EXAM DESCRIPTION: Rhonda Single View01/25/2020 8:13 pm CLINICAL HISTORY: cough COMPARISON: 2018 FINDINGS: Mild to moderate right upper lobe opacities. Mild left lung opacities The heart is normal size IMPRESSION: Mild to moderate right upper lobe opacities with mild left lung opacities consistent wi th pneumonia. This can be seen with Covid
[2020-01-25] MEDS ORDERED: NA CHLORIDE 0.9% 250 ML ONE ×3 (21:27→23:47)
[2020-01-25] MEDS ORDERED: PANTOPRAZOLE 40 MG INJ ONE (21:27)
[2020-01-25 21:28] LABS: Blood Morphology Comment NOTED (NOT SEEN); Platelet Estimate DECR; Urine White Blood Cell Casts OK
[2020-01-25 21:29] LABS: Anisocytosis 1+; Poikilocytosis 1+
[2020-01-25] MEDS ORDERED: AZITHROMYCIN 500 MG INJ IVPB ONE (22:18)
[2020-01-25] MEDS ORDERED: ACETAMINOPHEN 500 MG TAB ONE (22:19)
--- NOTE | 2020-01-25 22:53 | ER ---
Nurse's Notes [facility] Name: Amaury Matamoros Age: 69 yrs Sex: Male : 1950 Arrival Date: 01/25/2020 Time: 16:07 Bed 8 Private MD: Diagnosis: Anemia, unspecified;Gastrointestinal hemorrhage, unspecified;Pneumonia, unspecified organism Presentation: 01/24 16:53 Chief complaint: Patient states: N/V/D since 0200 this morning. A little bit of cough ca1 and SOB. Denies fever. Coronavirus screen: Patient reports a cough. Patient denies shortness of breath or difficulty breathing. Patient denies measured and/or subjective temperature greater than 100.4F prior to today's visit. Patient denies travel on a cruise ship or to a country the [facility] currently lists as an affected area. Patient denies contact with known and/or suspected case of COVID-19. Surgical mask in place. Instructed on keeping mask at all times and keep 6 feet distance from other people in the lobby. Verbalized understanding. Ebola Screen: Patient negative for fever greater than or equal to 101.5 degrees Fahrenheit, and additional compatible Ebola Virus Disease symptoms Patient denies exposure to infectious person. Patient denies travel to an Ebola-affected area in the 21 days before illness onset. No symptoms or risks identified at this time. Initial Sepsis Screen: Does the patient meet any 2 criteria? No. Patient's initial sepsis screen is negative. Does the patient have a suspected source of infection? No. Patient's initial sepsis screen is negative. Risk Assessment: Do you want to hurt yourself or someone else? Patient reports no desire to harm self or others. Onset of symptoms was January 25, 2020. 16:53 Method Of Arrival: Ambulatory ca1 16:53 Acuity: ALEJANDRA 3 ca1 Historical: - Allergies: 16:56 PENICILLINS; ca1 - Home Meds: 01/25 01:01 ferrous sulfate 325 mg (65 mg iron) Oral tab daily [Active]; gabapentin 300 mg Oral cap mg2 1 cap 3 times per day [Active]; metformin 1,000 mg Oral tab 1 tab 2 times per day [Active]; metoprolol tartrate 25 mg Oral tab 1 tab 2 times per day [Active]; - PMHx: 01/24 16:56 Cellulitis; Diabetes - NIDDM; Hypertension; ca1 - PSHx: 01/25 01:01 left leg amputee; mg2 - Immunization history:: Adult Immunizations up to date. - Social history:: Smoking status: Patient reports the use of cigarette tobacco products, denies chronic smoking, but will smoke occasionally. Screenin/12 17:57 Abuse screen: Denies threats or abuse. Nutritional screening: No deficits noted. em Tuberculosis screening: No symptoms or risk factors identified. Fall Risk None identified. Assessment: 19:54 General: Appears in no apparent distress. comfortable, Behavior is calm, cooperative. mg2 Pain: Complains of pain in abdomen Pain does not radiate. Pain currently is 5 out of 10 on a pain scale. Quality of pain is described as aching, Pain began. Neuro: Level of Consciousness is awake, alert, obeys commands, Oriented to person, place, time, situation. Cardiovascular: Capillary refill < 3 seconds Patient's skin is warm and dry. Respiratory: Airway is patent Respiratory effort is even, unlabored, Respiratory pattern is regular, symmetrical. GI: Abdomen is flat, non-distended, Reports lower abdominal pain, upper abdominal pain, nausea, vomiting. : No signs and/or symptoms were reported regarding the genitourinary system. EENT: No signs and/or symptoms were reported regarding the EENT system. Derm: Skin is intact, is healthy with good turgor, Skin is pink, warm \T\ dry. normal. Musculoskeletal: Amputation of. 21:36 Reassessment: Patient appears in no apparent distress at this time. Patient and/or mg2 family updated on plan of care and expected duration. Pain level reassessed. Patient is alert, oriented x 3, equal unlabored respirations, skin warm/dry/pink. 22:30 Reassessment: Patient appears in no apparent distress at this time. Patient and/or mg2 family updated on plan of care and expected duration. Pain level reassessed. Patient is alert, oriented x 3, equal unlabored respirations, skin warm/dry/pink. 23:30 Reassessment: No changes from previously documented assessment. Patient and/or family mg2 updated on plan of care and expected duration. Pain level reassessed. Patient is alert, oriented x 3, equal unlabored respirations, skin warm/dry/pink. informed about the plan of hospitalization and he agreed. blood transfusion consent signed by himself. 01/25 01:58 Reassessment: Patient appears in no apparent distress at this time. Patient and/or mg2 family updated on plan of care and expected duration. Pain level reassessed. Patient is alert, oriented x 3, equal unlabored respirations, skin warm/dry/pink. Vital Signs: 01/24 16:53 BP 126 / 77; Pulse 110; Resp 19 S; Temp 99.9(O); Pulse Ox 100% on R/A; Weight 58.97 kg ca1 (R); Height 5 ft. 2 in. (157.48 cm) (R); 19:56 Pulse 110; Resp 18; Pulse Ox 100% on R/A; mg2 21:36 BP 144 / 79; Pulse 102; Resp 18; Pulse Ox 100% on R/A; mg2 21:59 Temp 100.2(O); mg2 23:40 BP 122 / 71; Pulse 93; Resp 18; Temp 98.7; Pulse Ox 94% on R/A; mg2 01/25 01:46 BP 136 / 77; Pulse 85; Resp 18; Temp 98.5; Pulse Ox 100% on R/A; mg2 01/24 16:53 Body Mass Index 23.78 (58.97 kg, 157.48 cm) ca1 ED Course: 01/24 16:07 Patient arrived in ED. ag5 16:55 Triage completed. ca1 16:56 Arm band placed on right wrist. ca1 17:54 Lionel Gutierrez, VIDAL is PHCP. pm1 17:54 Jose Powell MD is Attending Physician. pm1 17:57 Milton Hall, RN is Primary Nurse. em 18:27 Patient has correct armband on for positive identification. Placed in gown. Bed in low em position. Call light in reach. Side rails up X2. Pulse ox on. NIBP on. 19:40 Radiology exam delayed due to lab results not completed at this time. (BUN/Creatinine) 1 IV insertion attempt and/or patient not having appropriate IV at this time. 19:55 No provider procedures requiring assistance completed. Inserted saline lock: 20 gauge mg2 in left antecubital area, using aseptic technique. Blood collected. by JEROME Duarte Tech. 20:12 Chest Single View XRAY In Process Unspecified. EDMS 20:43 Abdomen In Process Unspecified. EDMS 22:00 Inserted saline lock: 20 gauge in right antecubital area, using aseptic technique. mg2 22:52 Quincy Wilkinson is Hospitalizing Provider. pm1 Administered Medications: 19:53 Drug: Zofran (Ondansetron) 4 mg Route: IVP; Site: left antecubital; mg2 21:35 Follow up: Response: No adverse reaction mg2 19:53 Drug: morphine 4 mg Route: IVP; Site: left antecubital; mg2 21:35 Follow up: Response: No adverse reaction mg2 21:34 Drug: ProTONIX 40 mg Route: IVP; Site: left antecubital; mg2 01/25 03:57 Follow up: Response: No adverse reaction mg2 01/24 21:34 Drug: ProTONIX 8 mg/hr Route: IV; Rate: 25 ml/hr; Site: left antecubital; mg2 22:35 Drug: AZITHromycin 500 mg Route: IVPB; Infused Over: 1 hrs; Site: right antecubital; mg2 01/25 03:56 Follow up: Response: No adverse reaction; IV Status: Completed infusion; IV Intake: mg2 250ml 01/24 22:36 Drug: Tylenol 1000 mg Route: PO; mg2 01/25 03:57 Follow up: Response: No adverse reaction; Temperature is decreased mg2 Medication: 01/24 23:40 Blood products: PRBCs X 1 unit given. See transfusion record. mg2 Intake: 01/25 03:56 IV: 250ml; Total: 250ml. mg2 Outcome: 01/24 22:52 Decision to Hospitalize by Provider. pm1 01/25 18:30 Patient left the ED. hb Signatures: Dispatcher [employer] EDHI Milton Hall, RN Lionel Lui, KENNEL ASSISTANT KENNEL ASSISTANT pm1 Micaela Zuñiga RN RN Eber Peck RN RN mg2 Hailee Munguia RN RN ca1 Gaskin, Ajare ag5 Di [place]anto, Mikaela md1
--- NOTE | 2020-01-25 22:53 | EDPHYS ---
Physician Documentation [facility] Name: Amaury Matamoros Age: 69 yrs Sex: Male : 1950 Arrival Date: 01/25/2020 Time: 16:07 Bed 8 Private MD: ED Physician Jose Powell HPI: 01/24 18:32 This 69 yrs old Male presents to ER via Ambulatory with complaints of pm1 Nausea/Vomiting, R/O COVID. 18:32 The patient presents to the emergency department with nausea, vomiting, diarrhea. pm1 Onset: The symptoms/episode began/occurred today, at 02:00. Possible causes: bad food exposure. The symptoms are aggravated by nothing. The symptoms are alleviated by nothing. Associated signs and symptoms: Pertinent positives: abdominal pain, cough and subjective fever, Pertinent negatives: dysuria. Severity of symptoms: in the emergency department the symptoms are unchanged. 22:05 Patient reports black tarry stool for the past two days. pm1 Historical: - Allergies: 16:56 PENICILLINS; ca1 - Home Meds: 01/25 01:01 ferrous sulfate 325 mg (65 mg iron) Oral tab daily [Active]; gabapentin 300 mg Oral cap mg2 1 cap 3 times per day [Active]; metformin 1,000 mg Oral tab 1 tab 2 times per day [Active]; metoprolol tartrate 25 mg Oral tab 1 tab 2 times per day [Active]; - PMHx: 01/24 16:56 Cellulitis; Diabetes - NIDDM; Hypertension; ca1 - PSHx: 01/25 01:01 left leg amputee; mg2 - Immunization history:: Adult Immunizations up to date. - Social history:: Smoking status: Patient reports the use of cigarette tobacco products, denies chronic smoking, but will smoke occasionally. ROS: 01/24 19:00 Eyes: Negative for injury, pain, redness, and discharge, ENT: Negative for injury, pm1 pain, and discharge, Neck: Negative for injury, pain, and swelling, Cardiovascular: Negative for chest pain, palpitations, and edema. Back: Negative for injury and pain, : Negative for injury, bleeding, discharge, and swelling, MS/Extremity: Negative for injury and deformity, Skin: Negative for injury, rash, and discoloration, Neuro: Negative for headache, weakness, numbness, tingling, and seizure. Constitutional: Positive for fever, Negative for body aches, poor PO intake. Respiratory: Positive for cough, Negative for shortness of breath, sputum production, wheezing. Abdomen/GI: Positive for abdominal pain, nausea, vomiting, and diarrhea, watery diarrhea, and voimting food content. Exam: 19:00 Constitutional: This is a well developed, well nourished patient who is awake, alert, pm1 and in no acute distress. Head/Face: Normocephalic, atraumatic. Neck: Trachea midline, no thyromegaly or masses palpated, and no cervical lymphadenopathy. Supple, full range of motion without nuchal rigidity, or vertebral point tenderness. No Meningismus. Chest/axilla: Normal chest wall appearance and motion. Nontender with no deformity. No lesions are appreciated. 19:00 Abdomen/GI: Soft, non-tender, with normal bowel sounds. No distension or tympany. No guarding or rebound. No evidence of tenderness throughout. Back: No spinal tenderness. No costovertebral tenderness. Full range of motion. Skin: Warm, dry with normal turgor. Normal color with no rashes, no lesions, and no evidence of cellulitis. MS/ Extremity: Pulses equal, no cyanosis. Neurovascular intact. Full, normal range of motion. 19:00 Cardiovascular: Exam negative for acute changes, Rate: normal, Rhythm: regular, Pulses: no pulse deficits are appreciated. 19:00 Respiratory: Exam negative for acute changes, respiratory distress, shortness of breath. 19:00 Neuro: Exam negative for acute changes, Orientation: is normal, Mentation: is normal, Motor: is normal, moves all fours. 21:06 Abdomen/GI: Rectal exam: rectal tone normal, Stool: brown, guaiac positive, pm1 hemorrhoid(s), are not appreciated. Vital Signs: 16:53 BP 126 / 77; Pulse 110; Resp 19 S; Temp 99.9(O); Pulse Ox 100% on R/A; Weight 58.97 kg ca1 (R); Height 5 ft. 2 in. (157.48 cm) (R); 19:56 Pulse 110; Resp 18; Pulse Ox 100% on R/A; mg2 21:36 BP 144 / 79; Pulse 102; Resp 18; Pulse Ox 100% on R/A; mg2 21:59 Temp 100.2(O); mg2 23:40 BP 122 / 71; Pulse 93; Resp 18; Temp 98.7; Pulse Ox 94% on R/A; mg2 01/25 01:46 BP 136 / 77; Pulse 85; Resp 18; Temp 98.5; Pulse Ox 100% on R/A; mg2 01/24 16:53 Body Mass Index 23.78 (58.97 kg, 157.48 cm) ca1 MDM: 01/24 18:30 Patient medically screened. pm1 22:41 Data reviewed: vital signs. Data interpreted: Pulse oximetry: on room air is 100 %. pm1 Interpretation: normal. Counseling: I had a detailed discussion with the patient and/or guardian regarding: the need for further work-up and treatment in the hospital. 22:41 Physician consultation: Rivas Barnett MD was called at 22:42, was contacted at 22:42, pm1 regarding Discussed case with Dr. Barnett's PA and said she will see him tomorrow. 01/24 18:32 Order name: Basic Metabolic Panel; Complete Time: 20:26 pm1 01/24 18:32 Order name: CBC with Diff; Complete Time: 21:48 pm1 01/24 18:32 Order name: Hepatic Function; Complete Time: 20:26 pm1 01/24 18:32 Order name: Lipase; Complete Time: 20:26 pm1 01/24 18:32 Order name: COVID-19 pm1 01/24 18:32 Order name: Flu; Complete Time: 20:48 pm1 01/24 18:32 Order name: Chest Single View XRAY; Complete Time: 21:01 pm1 01/24 18:32 Order name: Strep; Complete Time: 20:48 pm1 01/24 20:28 Order name: CBC Smear Scan; Complete Time: 21:48 EDDC 01/24 20:30 Order name: Type And Screen pm1 01/24 21:45 Order name: Packed RBCs (Additional Unit) [facility] 01/24 23:05 Order name: Blood Culture Adult (2) [facility] [place] 01/25 12:28 Order name: Hemoglobin; Complete Time: 15:00 EDDC 01/25 12:28 Order name: Hematocrit; Complete Time: 15:00 [facility] 01/24 18:32 Order name: IV Saline Lock; Complete Time: 19:53 pm1 01/24 18:32 Order name: Labs collected and sent; Complete Time: 19:53 pm1 01/24 18:32 Order name: O2 Per Protocol; Complete Time: 19:53 pm1 01/24 20:25 Order name: Abdomen ; Complete Time: 21:01 EDDC 01/24 21:05 Order name: Transfuse; Complete Time: 03:58 pm1 Administered Medications: 19:53 Drug: Zofran (Ondansetron) 4 mg Route: IVP; Site: left antecubital; mg2 21:35 Follow up: Response: No adverse reaction mg2 19:53 Drug: morphine 4 mg Route: IVP; Site: left antecubital; mg2 21:35 Follow up: Response: No adverse reaction mg2 21:34 Drug: ProTONIX 40 mg Route: IVP; Site: left antecubital; mg2 01/25 03:57 Follow up: Response: No adverse reaction mg2 01/24 21:34 Drug: ProTONIX 8 mg/hr Route: IV; Rate: 25 ml/hr; Site: left antecubital; mg2 22:35 Drug: AZITHromycin 500 mg Route: IVPB; Infused Over: 1 hrs; Site: right antecubital; mg2 01/25 03:56 Follow up: Response: No adverse reaction; IV Status: Completed infusion; IV Intake: mg2 250ml 01/24 22:36 Drug: Tylenol 1000 mg Route: PO; mg2 01/25 03:57 Follow up: Response: No adverse reaction; Temperature is decreased mg2 Disposition: 01/25/20 22:52 Hospitalization ordered by Quincy Wilkinson for Inpatient Admission. Preliminary diagnosis are Anemia, unspecified, Gastrointestinal hemorrhage, unspecified, Pneumonia, unspecified organism. - Bed requested for Intensive Care Unit. - Status is Inpatient Admission. hb - Condition is Stable. - Problem is new. - Symptoms have improved. Addendum: 01/28/2020 07:38 Co-signature as Attending Physician, Jose Powell MD. r n Signatures: Dispatcher [employer] EDEmperatriz Werner RN RN kl Nieto, Roman, MD MD rn Garcia, Cindy, RN RN Lionel Gutierrez, [employer] INSTALLER [employer] INSTALLER pm1 Micaela Zuñiga RN RN Eber Peck RN RN mg2 Hailee Munguia RN RN ca1 Corrections: (The following items were deleted from the chart) 01/24 20:25 18:33 Abdomen Pelvis W Con+CT.RAD.BRZ ordered. EDMS EDMS 01/25 02:48 01/24 22:52 Hospitalization Ordered by Quincy Wilkinson for Inpatient Admission. cg Preliminary diagnosis is Anemia, unspecified; Gastrointestinal hemorrhage, unspecified; Pneumonia, unspecified organism. Bed requested for Intensive Care Unit. Status is Inpatient Admission. Condition is Stable. Problem is new. Symptoms have improved. pm1 01/25 15:19 02:48 01/25/2020 22:52 Hospitalization Ordered by Quincy Wilkinson for Inpatient kl Admission. Preliminary diagnosis is Anemia, unspecified; Gastrointestinal hemorrhage, unspecified; Pneumonia, unspecified organism. Bed requested for [facility] ER HOLD. Status is Inpatient Admission. Condition is Stable. Problem is new. Symptoms have improved. cg 18:30 15:19 01/25/2020 22:52 Hospitalization Ordered by Quincy Wilkinson for Inpatient hb Admission. Preliminary diagnosis is Anemia, unspecified; Gastrointestinal hemorrhage, unspecified; Pneumonia, unspecified organism. Bed requested for Intensive Care Unit. Status is Inpatient Admission. Condition is Stable. Problem is new. Symptoms have improved. kl
--- NOTE | 2020-01-26 00:41 | P.HP ---
Certification for Inpatient Patient admitted to: Observation With expected LOS: <2 Midnights Practitioner: I am a practitioner with admitting privileges, knowledge of patient current condition, hospital course, and medical plan of care. Services: Services provided to patient in accordance with Admission requirements found in Title 42 Section 412.3 of the Code of Federal Regulations Patient History Date of Service: 01/26/20 Reason for admission: Melena History of Present Illness: 69-year-old gentleman with a history of GI bleed and gastric ulcer in the past presented to the ED with a complaint of nausea and vomiting and diarrhea, sore throat and cough. Patient requested to be tested for COVID. His blood work in the ED shows anemia with hemoglobin of 5.8, leukocytosis and elevated creatinine. Patient reports melena stools today. He is admitted for further management of GI bleed and acute blood loss anemia. Allergies Penicillins Allergy (Intermediate, Verified 03/03/19 18:20) Rash Home Medications: Aspirin [Aspirin EC 81 MG] 81 mg PO DAILY #90 tablet. 09/27/17 Metformin HCl [Metformin ER Osmotic] 1,000 mg PO BID 12/17/17 Metoprolol Tartrate [Lopressor*] 12.5 mg PO BID 6AM 6PM #60 tab 12/20/17 Gabapentin 300 mg PO TID 04/23/18 Collagenase [Santyl Ointment*] 1 appl TOP DAILY #1 tube 03/04/19 Ferrous Sulfate [Iron] 325 mg PO BID #60 tablet 03/04/19 Pantoprazole [Protonix Tab] 40 mg PO BID #60 tab 03/04/19 - Past Medical/Surgical History Diabetic: Yes -: Diabetes mellitus type 2, [id number] -: DM-NIDDM -: Alcohol Abuse -: Tobacco Abuse -: Hypertension -: Chronic pain -: Chronic sacral ulcer -: Left Knee Surgery -: Left BKA with Prosthetic blood -: surg wnd on coccyx wound Psychosocial/ Personal History: He is , has 4 children. He is disabled. - Family History Father -: Heart disease, Hypertension, Diabetes, Cancer Mother -: Diabetes, Stroke - Social History Alcohol use: No CD- Drugs: No Caffeine use: Yes Review of Systems Other: Except as documented, all other systems reviewed and negative. Physical Examination - Physical Exam General: Alert, In no apparent distress HEENT: Mucous membr. moist/pink Neck: Supple, JVD not distended Respiratory: Clear to auscultation bilaterally, Normal air movement Cardiovascular: No edema, Regular rate/rhythm, Normal S1 S2 Capillary refill: <2 Seconds Gastrointestinal: Normal bowel sounds, Soft and benign, Non-distended, No tenderness Musculoskeletal: No swelling, No erythema Integumentary: No rashes Neurological: Normal speech, Normal strength at 5/5 x4 extr, Cranial nerves 3-12 intact - Studies Laboratory Data (last 24 hrs) 01/25/20 19:40: WBC 19.8 H, Hgb 5.8 L*, Hct 20.0 L*, Plt Count 125 L 01/25/20 19:40: Sodium 137, Potassium 3.7, BUN 32 H, Creatinine 1.87 H, Glucose 187 H, Total Bilirubin 0.4, AST 48 H, ALT 27, Alkaline Phosphatase 107, Lipase 259 Microbiology Data (last 24 hrs): 01/25/20 19:40 Nasopharnyx Influenza Type A Antigen Screen - Final 01/25/20 19:40 Nasopharnyx Influenza Type B Antigen Screen - Final 01/25/20 19:40 Throat Group A Streptococcus Rapid Screen - Final Assessment and Plan - Problems (Diagnosis) (1) Acute blood loss anemia Current Visit: Yes Status: Acute (2) Leukocytosis Current Visit: Yes Status: Acute (3) Upper respiratory infection Current Visit: Yes Status: Acute - Plan Place under observation. Transfuse 2 units PRBC. Monitor H and H and transfuse for hemoglobin less than 7. IV protonix Consult GI. Follow COVID 19 test result. Monitor for alcohol withdrawal symptoms. - Advance Directives Does patient have a Living Will: No Does patient have a Durable POA for Healthcare: No
[2020-01-26] MEDS: NA CHLORIDE 0.9% 1,000 ML IV SCH ×3 (04:00→19:16)
[2020-01-26] MEDS ORDERED: NA CHLORIDE 0.9% 250 ML IV SCH (04:00)
[2020-01-26] MEDS ORDERED: ONDANSETRON 4 MG/2 ML VIAL IV PRN (04:00)
[2020-01-26] MEDS ORDERED: NA CHLORIDE 0.9% 1,000 ML ONE (06:39)
[2020-01-26] MEDS ORDERED: PNEUMOCOCCAL VACCINE 0.5 ML IMVAC ONE (09:00)
[2020-01-26] MEDS ORDERED: PANTOPRAZOLE 40 MG INJ IVP SCH (09:00)
[2020-01-26] MEDS: MORPHINE 4 MG/ML SYR IV PRN ×2 (09:45→20:57)
[2020-01-26] MEDS: ONDANSETRON 4 MG/2 ML VIAL IV PRN ×2 (09:46→20:57)
[2020-01-26] MEDS ORDERED: MORPHINE 4 MG/ML SYR ONE (09:47)
[2020-01-26] MEDS ORDERED: ONDANSETRON 4 MG/2 ML VIAL ONE (09:47)
[2020-01-26] MEDS: PANTOPRAZOLE INJ 80 MG in NA CHLORIDE 0.9% 250 ML IV SCH ×2 (11:30→20:59)
[2020-01-26 12:22] LABS: Hematocrit 27.7 % (39.6-49.0)
[2020-01-26 19:03] LABS: Hematocrit 30.7 % (39.6-49.0)
[2020-01-26] MEDS ORDERED: PANTOPRAZOLE 40 MG INJ ONE (20:29)
[2020-01-26] MEDS ORDERED: NA CHLORIDE 0.9% 250 ML ONE (20:30)
[2020-01-26] MEDS: METOPROLOL TAR 25 MG TAB PO SCH (23:25)
[2020-01-26 23:58] LABS: Hematocrit 26.5 % (39.6-49.0)
[2020-01-27] MEDS: NA CHLORIDE 0.9% 1,000 ML IV SCH ×2 (04:45)
[2020-01-27] MEDS: MORPHINE 4 MG/ML SYR IV PRN (04:46)
[2020-01-27 05:38] LABS: Potassium 3.7 mmol/L (3.5-5.1)
[2020-01-27 06:01] LABS: Protime INR 0.97
[2020-01-27 06:05] LABS: Absolute Lymphocytes (CBC) 1.5 K/uL (0.7-4.9); Basophils % 0.7 % (0-1.3); Hematocrit 25.1 % (39.6-49.0); Lymphocytes % 13.4 % (15.3-44.8); MPV 10.1 fL (7.6-11.3); RBC Red Blood Cell Count 3.24 M/uL (4.33-5.43)
[2020-01-27] MEDS: METOPROLOL TAR 25 MG TAB PO SCH ×2 (06:23→16:33)
[2020-01-27] MEDS ORDERED: PANTOPRAZOLE INJ 80 MG in NA CHLORIDE 0.9% 250 ML IV SCH (07:30)
[2020-01-27] MEDS: GABAPENTIN 100 MG CAP PO PRN ×2 (09:12→14:31)
[2020-01-27] MEDS: levoFLOXacin 500 MG TAB PO SCH (09:12)
[2020-01-27] MEDS: PANTOPRAZOLE 40MG TABLET PO SCH ×2 (09:12→16:34)
[2020-01-27] MEDS: lisinopriL 10 MG TAB PO SCH (09:13)
[2020-01-27 09:17] LABS: Hematocrit 27.7 % (39.6-49.0)
--- NOTE | 2020-01-27 18:10 | P.PN ---
Subjective Date of Service: 01/27/20 Chief Complaint: Melena Subjective: Improving, Doing well Physical Examination - Vital Signs Temperature: 99.2 F Blood Pressure: 172/86 Pulse: 102 Respirations: 19 Pulse Ox (%): 95 - Physical Exam General: Alert, In no apparent distress, Oriented x3, Cooperative HEENT: Atraumatic Neck: Supple Respiratory: Clear to auscultation bilaterally, Normal air movement Cardiovascular: Normal pulses, Regular rate/rhythm Gastrointestinal: Normal bowel sounds, Soft and benign, Non-distended Neurological: Normal speech, Normal strength at 5/5 x4 extr, Normal tone - Studies Microbiology Data (last 24 hrs): 01/25/20 23:20 Blood - Blood Anaerobic Blood Culture - Final 01/25/20 23:26 Blood - Blood Anaerobic Blood Culture - Final Medications List Reviewed: Yes Assessment & Plan Discharge Plan: Home Plan to discharge in: 24 Hours Physician Review Additional Text: Impression: Melena likely related to upper GI bleed with history of gastric ulcers with noted acute on chronic anemia Streptococcal left lower lobe pneumonia Hypertension Diabetes mellitus type 2 Acute renal insufficiency likely from dehydration Plan: Melena likely related to upper GI bleed with history of gastric ulcers with noted acute on chronic anemia: Spoke to GI. No need for EGD at this time. Hemoglobin stable. Continue monitor hemoglobin. Will start Protonix 40 mg 1 pill twice daily. Advanced diet. If tolerates diet then will anticipate discharge tomorrow and follow up with GI as an outpatient. Streptococcal left lower lobe pneumonia: Continue Levaquin. Wean off oxygen. Consider sending home with home oxygen tomorrow if not able to be weaned off. Hypertension: Increase metoprolol. Will provide medication. Diabetes mellitus type 2: Continue sliding scale. Acute renal insufficiency likely from dehydration: Renal function improved. Time Spent Managing Pts Care (In Minutes): 55
[2020-01-27] MEDS: TRAMADOL HCL 50 MG TAB PO PRN (18:35)
[2020-01-27] MEDS: METOPROLOL TAR 50 MG TAB PO SCH (19:00)
[2020-01-27] MEDS: ONDANSETRON 4 MG/2 ML VIAL IV PRN (19:12)
[2020-01-27] MEDS ORDERED: METOPROLOL TAR 25 MG TAB ONE (19:51)
[2020-01-28 05:02] LABS: Absolute Lymphocytes (CBC) 1.1 K/uL (0.7-4.9); Basophils % 0.4 % (0-1.3); Hematocrit 24.9 % (39.6-49.0); Lymphocytes % 12.7 % (15.3-44.8); MPV 9.1 fL (7.6-11.3); RBC Red Blood Cell Count 3.22 M/uL (4.33-5.43)
[2020-01-28] MEDS: METOPROLOL TAR 50 MG TAB PO SCH ×2 (05:04→16:31)
[2020-01-28 05:17] LABS: Magnesium 1.7 mg/dL (1.8-2.4); Potassium 3.4 mmol/L (3.5-5.1)
[2020-01-28 06:00] VITALS: BMI 23.3
[2020-01-28] MEDS ORDERED: MAGNESIUM SULFATE 1 gm IVPB 1 GM/100 ML BAG IV ONE (06:00)
--- NOTE | 2020-01-28 08:36 | RAD REPORT ---
EXAM DESCRIPTION: Rhonda Single View01/28/2020 5:25 am CLINICAL HISTORY: Chest pain COMPARISON: January 24 FINDINGS: Worsening in bilateral pulmonary opacities. Moderate to marked left and moderate right pu lmonary opacities are present. Heart is normal size IMPRESSION: Worsening in bilateral pulmonary opacities probably pneumonia
[2020-01-28] MEDS: lisinopriL 10 MG TAB PO SCH (08:37)
[2020-01-28] MEDS: PANTOPRAZOLE 40MG TABLET PO SCH ×2 (08:37→16:32)
[2020-01-28] MEDS: levoFLOXacin 500 MG TAB PO SCH (08:37)
[2020-01-28] MEDS: TRAMADOL HCL 50 MG TAB PO PRN (08:40)
[2020-01-28 08:47] LABS: Hematocrit 28.1 % (39.6-49.0)
--- NOTE | 2020-01-28 13:13 | P.PN ---
Subjective Date of Service: 01/28/20 Chief Complaint: Melena Subjective: Improving, Doing well Physical Examination - Vital Signs Temperature: 98.9 F Blood Pressure: 166/79 Pulse: 78 Respirations: 24 Pulse Ox (%): 91 - Physical Exam General: Alert, In no apparent distress, Oriented x3, Cooperative HEENT: Atraumatic Neck: Supple Respiratory: Clear to auscultation bilaterally, Normal air movement Cardiovascular: Normal pulses, Regular rate/rhythm Gastrointestinal: Normal bowel sounds, No tenderness, No masses, No rebound, No guarding Neurological: Normal speech, Normal strength at 5/5 x4 extr, Normal tone - Studies Medications List Reviewed: Yes Assessment & Plan Discharge Plan: Home Plan to discharge in: 24 Hours Physician Review Additional Text: Impression: Melena likely related to upper GI bleed with history of gastric ulcers with noted acute on chronic anemia Streptococcal bilateral pneumonia Hypertension Diabetes mellitus type 2 Acute renal insufficiency likely from dehydration Plan: Melena likely related to upper GI bleed with history of gastric ulcers with noted acute on chronic anemia: Spoke to GI. No need for EGD at this time. This will be done as an outpatient. Hemoglobin stable. Will check iron and B12 studies. Full start iron supplementation. Will continue with Protonix 40 mg 1 pill twice daily. Patient also with pneumonia. Continue treatment. Patient still on oxygen. Continue to wean off. Provide incentive spirometer. Anticipate improvement over the next 24 hr. Can be discharge once off oxygen. Will check echocardiogram. Streptococcal bilateral pneumonia: Continue Levaquin. Wean off oxygen. Will need to wean off oxygen prior to discharge. Hypertension: Medication adjusted. Continue to adjust for better control. Diabetes mellitus type 2: Continue sliding scale. Acute renal insufficiency likely from dehydration: Renal function improved. Time Spent Managing Pts Care (In Minutes): 55
[2020-01-28 14:26] LABS: Ferritin 40.1 ng/mL (26-388)
[2020-01-28] MEDS: HYDROCODONE/APAP 7.5/325 MG TAB PO PRN ×2 (16:31→21:34)
[2020-01-29] MEDS: METOPROLOL TAR 50 MG TAB PO SCH ×2 (05:24→16:57)
[2020-01-29] MEDS: PANTOPRAZOLE 40MG TABLET PO SCH ×2 (05:24→16:57)
[2020-01-29 06:29] LABS: Absolute Lymphocytes (CBC) 1.1 K/uL (0.7-4.9); Basophils % 0.3 % (0-1.3); Hematocrit 26.1 % (39.6-49.0); Lymphocytes % 13.9 % (15.3-44.8); RBC Red Blood Cell Count 3.36 M/uL (4.33-5.43)
[2020-01-29 06:43] LABS: Magnesium 1.9 mg/dL (1.8-2.4); Potassium 3.7 mmol/L (3.5-5.1)
[2020-01-29] MEDS ORDERED: ALBUTEROL INHALER 60 PUFF/8 GM IH PRN (07:50)
--- NOTE | 2020-01-29 08:07 | ECHO ---
HEIGHT: 5 ft 2 in WEIGHT: 127 lb 11.2 oz DATE OF STUDY: 01/28/[address]: Mario Saleh DO 2-DIMENSIONAL: YES M.MODE: YES DOPPLER: YES COLOR FLOW: YES TDS: NO PORTABLE: NO DEFINITY: NO BUBBLE STUDY: NO DIAGNOSIS: EVALUATE FOR CONGESTIVE HEART FAILURE CARDIAC HISTORY: CATHERIZATION: NO SURGERY: NO PROSTHETIC VALVE: NO PACEMAKER: NO MEASUREMENTS (cm) DIASTOLIC (NORMALS) SYSTOLIC (NORMALS) IVSd 1.0 (0.6-1.2) LA Diam 2.5 (1.9-4.0) LVEF 53% LVIDd 3.9 (3.5-5.7) LVIDs 2.9 (2.0-3.5) %FS 27% LVPWd 1.0 (0.6-1.2) Ao Diam 2.4 (2.0-3.7) 2 DIMENSIONAL ASSESSMENT: RIGHT ATRIUM: NORMAL LEFT ATRIUM: NORMAL RIGHT VENTRICLE: NORMAL LEFT VENTRICLE: NORMAL TRICUSPID VALVE: NORMAL MITRAL VALVE: NORMAL PULMONIC VALVE: NORMAL AORTIC VALVE: NORMAL PERICARDIAL EFFUSION: NONE AORTIC ROOT: NORMAL LEFT VENTRICULAR WALL MOTION: NORMAL LEFT VENTRICULAR EJECTION FRACTION. DECREASED LEFT VENTRICULAR COMPLIANCE. DOPPLER/COLOR FLOW: NORMAL COMMENTS: DECREASED LEFT VENTRICULAR COMPLIANCE CONSISTENT WITH DIASTOLIC DYSFUNCTION. NORMAL LEFT VENTRICULAR EJECTION FRACTION. NO EFFUSION. TECHNOLOGIST: Tessa OZUNA
[2020-01-29] MEDS: HYDROCODONE/APAP 7.5/325 MG TAB PO PRN (08:47)
[2020-01-29] MEDS: lisinopriL 10 MG TAB PO SCH (08:48)
[2020-01-29] MEDS: levoFLOXacin 500 MG TAB PO SCH (08:48)
[2020-01-29] MEDS ORDERED: DULERA 100/5 (MOMETASONE/FORMOTEROL) INHALER IH SCH (09:00)
[2020-01-29] MEDS ORDERED: GUAIFENESIN 600 MG SA TAB PO SCH (09:00)
[2020-01-29 10:58] VITALS: O2SAT 92
--- NOTE | 2020-01-29 13:52 | P.DS ---
Admission Date: 01/26/20 Discharge Date: 01/29/20 Primary Care Provider: unknown Disposition: [place] HOME/HOME HEALTH CARE Discharge Condition: GOOD Reason for Admission: Melena Consultations: GI-Dr. Ortiz Procedures: CT scan: FINDINGS: The evaluation of solid organs, vessels and bowel is limited secondary to the lack of contrast administration. Mild left lung opacities Cirrhotic liver The spleen, pancreas, adrenals and kidneys appear grossly normal. No evidence diverticulitis. 5.6 centimeter lipoma subcutaneous tissues upper right hip. Small umbilical hernia IMPRESSION: Mild left lung opacities consistent with pneumonia. This can be seen with Covid. No acute abnormality in abdomen/pelvis ECHO: Ejection fraction 53% LEFT VENTRICULAR WALL MOTION: NORMAL LEFT VENTRICULAR EJECTION FRACTION. DECREASED LEFT VENTRICULAR COMPLIANCE. DOPPLER/COLOR FLOW: NORMAL COMMENTS: DECREASED LEFT VENTRICULAR COMPLIANCE CONSISTENT WITH DIASTOLIC DYSFUNCTION. NORMAL LEFT VENTRICULAR EJECTION FRACTION. NO EFFUSION. 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 Patient admitted for further evaluation. Hospital Course: Patient presented with melena. Patient with history of gastric ulcers. Patient followed by GI as an outpatient. He was to have gotten EGD as an outpatient. Patient was admitted due to acute anemia. Hemoglobin 5.8. Patient was transfused. Hemoglobin improved to 8.5. Patient has done well. Case discussed with GI. GI recommends outpatient endoscopy for further evaluation. Due to his history the patient will continue with Protonix 40 mg 1 pill twice daily. Recommend to recheck lab-CBC in 1-2 weeks to monitors progress. Recommend follow up with GI in 1-2 weeks to further address. Patient also found to have streptococcal bilateral pneumonia. Patient was started on Levaquin. Patient has done well. At discharge patient will continue with Levaquin 500 mg daily for the next 5 days. Recommend to recheck chest x- ray in 2-4 weeks to monitor resolution. Patient does require home oxygen at discharge. Home health and home oxygen will be arranged. Patient currently on 2 L. Patient with chronic diastolic CHF. Echocardiogram reviewed. At discharge he will continue with 1500 cc per day fluid restriction and low-salt diet. Recommend to monitor weight daily. If his weight increases by more than 5 lb patient may adjustment in his medication. Patient will be provided Lasix 20 mg daily to be use as needed if with increase shortness of breath or edema. Recommend follow up with PCP and Cardiology to further address and monitor. As mentioned above patient requires oxygen at discharge. Maintain oxygen above 93%. Patient on 2 L per nasal cannula. CHF education will be provided. Patient with hypertension. This has remained stable. At discharge he will continue with lisinopril 10 mg daily and metoprolol 25 mg 1 pill twice daily. Recommend to maintain blood pressure less 150/80. Further adjustment can be done by his PCP. Patient with diabetes mellitus type 2. Blood sugar well controlled. Patient previously on metformin. This was discontinued due to his chronic renal disease . At discharge patient will continue with glimepiride 1 mg daily. Recommend to monitor his blood sugars at least twice daily. Recommend to maintain blood sugars less 140 fasting and less than 200 after meals. May need to hold glimepiride if blood sugars less than 120. Patient with chronic renal disease stage III. Recommend no further use of nonsteroidal anti-inflammatories. Future medications will need to be renally dose. Recommend to recheck lab-BMP in 1-2 weeks to monitors progress. Recommend follow up with Nephrology to further monitor and address. Patient with chronic pain. At discharge he will continue with tramadol 50 mg 1 pill twice daily as needed for pain. A limited supply of medication will provided. Patient with cirrhosis of liver. This is likely from prior alcohol use. Recommend follow up with GI to further monitor and address. Patient has no encephalopathy. This will need to be monitored in the future. Recommend future medications to be liver adjusted. Patient will also continue with thiamine 100 mg daily and folic acid 1 mg daily. Vital Signs/Physical Exam: Temp Pulse Resp BP Pulse Ox 97.7 F 77 16 151/78 H 93 01/29/20 12:00 01/29/20 12:01/29/20 12:00 01/29/20 12:01/29/20 12:00 General: Alert, In no apparent distress, Oriented x3, Cooperative HEENT: Atraumatic Neck: Supple Respiratory: Clear to auscultation bilaterally, Normal air movement Cardiovascular: Normal pulses, Regular rate/rhythm Gastrointestinal: Normal bowel sounds, Soft and benign, Non-distended, No tenderness, No masses, No rebound, No guarding Neurological: Normal speech, Normal strength at 5/5 x4 extr, Normal tone Laboratory Data at Discharge: WBC 8.1 K/uL (4.3-10.9) 01/29/20 06:13 Hgb 8.5 g/dL (13.6-17.9) L 01/29/20 06:13 Hct 26.1 % (39.6-49.0) L 01/29/20 06:13 Plt Count 126 K/uL (152-406) L D 01/29/20 06:13 PT 11.5 SECONDS (9.5-12.5) 01/27/20 04:55 INR 0.97 01/27/20 04:55 Sodium 140 mmol/L (136-145) 01/29/20 06:13 Potassium 3.7 mmol/L (3.5-5.1) 01/29/20 06:13 BUN 20 mg/dL (7-18) H 01/29/20 06:13 Creatinine 1.44 mg/dL (0.55-1.3) H 01/29/20 06:13 Glucose 105 mg/dL (74-106) 01/29/20 06:13 Magnesium 1.9 mg/dL (1.8-2.4) 01/29/20 06:13 Total Bilirubin 0.4 mg/dL (0.2-1.0) 01/25/20 19:40 AST 48 U/L (15-37) H 01/25/20 19:40 ALT 27 U/L (12-78) 01/25/20 19:40 Alkaline Phosphatase 107 U/L (45-117) 01/25/20 19:40 Lipase 259 U/L (73-393) 01/25/20 19:40 Home Medications: Metoprolol Tartrate [Lopressor*] 25 mg PO BID 6AM 6PM 01/26/20 lisinopriL [Prinivil*] 10 mg PO DAILY 01/26/20 Folic Acid 1 mg PO DAILY #30 tablet 01/29/20 Furosemide [Lasix] 20 mg PO DAILY PRN #30 tab 01/29/20 Glimepiride 1 mg PO DAILY #30 tablet 01/29/20 Guaifenesin [Mucinex] 600 mg PO BID PRN #15 tab.er.12h 01/29/20 Pantoprazole [Protonix Tab*] 40 mg PO BIDAC #60 tab 01/29/20 Thiamine HCl 100 mg PO DAILY #30 tablet 01/29/20 levoFLOXacin [Levaquin*] 500 mg PO DAILY #5 tab 01/29/20 New Medications: Folic Acid 1 mg PO DAILY #30 tablet Glimepiride 1 mg PO DAILY #30 tablet Furosemide [Lasix] 20 mg PO DAILY PRN #30 tab PRN Reason: Shortness Of Breath levoFLOXacin [Levaquin*] 500 mg PO DAILY #5 tab Guaifenesin [Mucinex] 600 mg PO BID PRN #15 tab.er.12h PRN Reason: Cough Pantoprazole [Protonix Tab*] 40 mg PO BIDAC #60 tab Thiamine HCl 100 mg PO DAILY #30 tablet Patient Discharge Instructions: 1. Recommend follow up with PCP in 1 week to follow up this hospitalization. 2. Patient presented with melena. Patient with history of gastric ulcers. Patient followed by GI as an outpatient. He was to have gotten EGD as an outpatient. Patient was admitted due to acute anemia. Hemoglobin 5.8. Patient was transfused. Hemoglobin improved to 8.5. Patient has done well. Case discussed with GI. GI recommends outpatient endoscopy for further evaluation. Due to his history the patient will continue with Protonix 40 mg 1 pill twice daily. Recommend to recheck lab-CBC in 1-2 weeks to monitors progress. Recommend follow up with GI in 1-2 weeks to further address. 3. Patient also found to have streptococcal bilateral pneumonia. Patient was started on Levaquin. Patient has done well. At discharge patient will continue with Levaquin 500 mg daily for the next 5 days. Recommend to recheck chest x-ray in 2-4 weeks to monitor resolution. Patient does require ho me oxygen at discharge. Home health and home oxygen will be arranged. Patient currently on 2 L. 4. Patient with chronic diastolic CHF. Echocardiogram reviewed. At discharge he will continue with 1500 cc per day fluid restriction and low-salt diet. Recommend to monitor weight daily. If his weight increases by more than 5 lb patient may adjustment in his medication. Patient will be provided Lasix 20 mg daily to be use as needed if with increase shortness of breath or edema. Recommend follow up with PCP and Cardiology to further address and monitor. As mentioned above patient requires oxygen at discharge. Maintain oxygen above 93%. Patient on 2 L per nasal cannula. CHF education will be provided. 5. Patient with hypertension. This has remained stable. At discharge he will continue with lisinopril 10 mg daily and metoprolol 25 mg 1 pill twice daily. Recommend to maintain blood pressure less 150/80. Further adjustment can be done by his PCP. 6. Patient with diabetes mellitus type 2. Blood sugar well controlled. Patient previously on metformin. This was discontinued due to his chronic renal disease. At discharge patient will continue with glimepiride 1 mg daily. Recommend to monitor his blood sugars at least twice daily. Recommend to maintain blood sugars less 140 fasting and less than 200 after meals. May need to hold glimepiride if blood sugars less than 120. 7. Patient with chronic renal disease stage III. Recommend no further use of nonsteroidal anti-inflammatories. Future medications will need to be renally dose. Recommend to recheck lab-BMP in 1-2 weeks to monitors progress. Recommend follow up with Nephrology to further monitor and address. 8. Patient with chronic pain. At discharge he will continue with tramadol 50 mg 1 pill twice daily as needed for pain. A limited supply of medication will provided. 9. Patient with cirrhosis of liver. This is likely from prior alcohol use. Recommend follow up with GI to further monitor and address. Patient has no encephalopathy. This will need to be monitored in the future. Recommend future medications to be liver adjusted. 10. Patient will also continue with thiamine 100 mg daily and folic acid 1 mg daily. Diet: ADA Activity: Fall precautions Time spent managing pt's care (in minutes): 55
[2020-01-29 16:12] VITALS: BP 185/95; TEMP 97.6
[2020-01-29] MEDS ORDERED: HYDRALAZINE HCL 20 MG/ML VIAL IV PRN (16:15)
== END 2020-01-29 17:46 | disposition home or self-care (01) | DRG 377 ==
LOC: ER 16:06 → ERHOLD 01-26 01:06 → 3RD-ICU 01-26 18:19 → 2ND 01-28 07:10
PROVIDERS: ADMIT Internal Medicine; ATTEND Family Medicine
PROC: 30233N1 Transfusion of Nonautologous Red Blood Cells into Peripheral Vein, Percutaneous Approach (ICD-10-PCS; principal; 2020-01-26)
DX: K92.1 Melena (principal); J15.4 Pneumonia due to other streptococci; D62 Acute posthemorrhagic anemia; I50.32 Chronic diastolic (congestive) heart failure; I13.0 Hypertensive heart and chronic kidney disease with heart failure and stage 1 through stage 4 chronic kidney disease, or unspecified chronic kidney disease; R05 Cough; Z20.828 Contact with and (suspected) exposure to other viral communicable diseases; Z88.0 Allergy status to penicillin; Z79.82 Long term (current) use of aspirin; Z79.84 Long term (current) use of oral hypoglycemic drugs; Z79.899 Other long term (current) drug therapy; D72.829 Elevated white blood cell count, unspecified; J06.9 Acute upper respiratory infection, unspecified; R06.02 Shortness of breath; N28.9 Disorder of kidney and ureter, unspecified; E86.0 Dehydration; N18.3 Chronic kidney disease, stage 3 (moderate); E11.22 Type 2 diabetes mellitus with diabetic chronic kidney disease; K70.30 Alcoholic cirrhosis of liver without ascites; K21.9 Gastro-esophageal reflux disease without esophagitis
CPT/HCPCS: 36415; 36430; 71045; 74176; 80048; 80076; 82607; 82728; 82947; 83540; 83690; 83735; 84466; 85014; 85018; 85025; 85610; 86850; 86900; 86901; 87040; 87081; 87804; 93306; 94760; 96365; 96366; 96375; 99285; C9113; J0360; J0456; J2405; J3475; J7030; J7050; J7606; P9016; U0002

== ENCOUNTER 2020-02-03 15:26 | Observation (INO) | payer OTHER ==
--- OUTSIDE RECORDS SUMMARY | 2020-02-03 15:39 | XMS REPORT | Continuity of Care Document ---
:1950 Author Organization [facility] t Address [address] [place] [address] Care Team Providers Name Role Phone Unavailable Unavailable Unavailable Problems Condition Condition Condition Status Onset Resolution Last Treating Co mments Source Name Details Category Date Date Treatment Clinician Date Uncontroll Uncontroll Diagnosis Active [facility] ed type 2 ed type 2 Luke s - diabetes diabetes Memori a mellitus mellitus l with with [facility] hyperglyce hyperglyce en t [facility] Essential Essential Problem Active [facility] hypertensi hypertensi Estrella kes - on on Memoria l [facility] History of History of Diagnosis Active [facility] left below left below Estrella kes - knee knee Memoria amputation amputation l [facility] Heavy Heavy Problem Active [facility] sensation sensation Luke s - of lower of lower Memori a extremity extremity l [facility] Right foot Right foot Problem Active [facility] pain pain [facility] Mem[facility] l [facility] Anemia, Anemia, Diagnosis Active [facility] unspecifie unspecifie Estrella kes - d type d type Memoria l [facility] Diabetes Diabetes Problem Active [facility] Abnormal Abnormal Diagnosis Active [facility] renal renal [facility] - function function Memori a test test l [facility] Decreased Decreased Problem Active [facility] sensation sensation Luke s - of foot of foot Memoria l [facility] Clin[facility] Onychomyco Onychomyco Problem Active [facility] sis sis [facility] Mem[facility] l [facility] Skin Skin Problem Active [facility] lesions lesions [facility] - Memoria l [facility] Skin Skin Problem Active [facility] cancer cancer [facility] - Memoria l [facility] Right leg Right leg Problem Active [facility] paresthesi paresthesi Estrella kes - as as Memoria l [facility] ent Clinics Blurry Blurry Diagnosis Active [facility] vision, vision, [facility] - bilateral bilateral Marcel kathy l [facility] ent Clinics Allergies, Adverse Reactions, Alerts This patient has no known allergies or adverse reactions. Medications Ordered Filled Start Stop Current Ordering Indication Dosage Frequency Signature Comments Components Source Medication Medication Date Date Medication? Clinician (SIG) Name Name Lisinopril Lisinopril Yes Karyna [address] [facility] Millender [facility] Hydrochloro Hydrochloro Yes Karyna [address] [facility] thiazide thiazide Millender in the [facility] - morning [facility] Pantoprazol Pantoprazol Yes Karyna [address] [facility] e Sodium e Sodium Millender Estrella [facility] Metoprolol Metoprolol Yes Karyna [address] [facility] Tartrate Tartrate Millender with food [facility] Metformin Metformin Yes Karyna [address] [facility] HCl HCl Millender with a Lukes - meal [facility] Ferrous Ferrous Yes Karyna [address] [facility] Sulfate Sulfate Millender [facility] Amlodipine Amlodipine Yes Karyna [address] [facility] Besylate Besylate Millender [facility] Gabapentin Gabapentin Yes Karyna [address] [facility] Millender [facility] Procedures This patient has no known procedures. Encounters Start End Encounter Admission Attending Care Care Encounter Source Date/Time Date/Time Type Type Clinicians Facility Department ID 2019-09-21 2019-09-21 Outpatient Giana Fariat [id number] [facility] 21:47:00 21:47:00 [facility] Clinics 2019-09-19 2019-09-19 Outpatient Giana Fariat [id number] [facility] 13:30:00 13:30:00 [facility] 2019-09-10 2019-09-10 Outpatient Giana [place] [id number] [facility] 10:15:00 10:15:00 [facility] 2019-06-20 2019-06-20 Outpatient G[place] [id number] [facility] 13:20:00 13:20:00 [facility] 2019-03-21 2019-03-21 Outpatient Giana [place] [id number] [facility] 11:20:00 11:20:00 [facility] Medicine Outpat[facility] ent Clinics Results This patient has no known results.
[2020-02-03 17:42] LABS: Absolute Lymphocytes (CBC) 0.9 K/uL (0.7-4.9); Basophils % 0.1 % (0-1.3); Hematocrit 31.5 % (39.6-49.0); Lymphocytes % 10.3 % (15.3-44.8); MPV 8.7 fL (7.6-11.3); RBC Red Blood Cell Count 4.09 M/uL (4.33-5.43)
--- NOTE | 2020-02-03 17:50 | RAD REPORT ---
EXAM DESCRIPTION: CTAbdomen Pelvis W Contrast - 02/03/2020 5:39 pm CLINICAL HISTORY: Abdominal pain. left flank pain, left lower abdominal pain COMPARISON: Abdomen Pelvis W Contrast dated 02/06/2018; Abdomen Pelvis W Contrast dated 12/16/2017 TECHNIQUE: Biphasic CT imaging of the abdomen and pelvis was performed with 100 ml non-ionic IV cont rast. All CT scans are performed using dose optimization technique as appropriate and may include automated exposure control or mA/KV adjustment according to patient size. FINDINGS: Emphysematous lung bases are noted. The liver demonstrates a mild nodular contour suggesting early/mild cirrhosis. No intrahepatic or ext rahepatic biliary tree dilatation. The spleen, pancreas, adrenal glands and kidneys are within normal limits. No bowel obstruction, free air, free fluid or abscess. Moderate stool is present in the rectosigmoid colon. The appendix is normal. No evidence of significant lymphadenopathy. Trace pelvic free fluid. Mild thickening of the urinary bladder wall seen anteriorly. No suspicious bony findings. IMPRESSION: Mild thickening of the anterior urinary bladder wall with trace pelvic free fluid. Sugge sting clinical correlation for the possibility of cystitis. Mild liver cirrhosis.
[2020-02-03] MEDS ORDERED: ONDANSETRON 4 MG/2 ML VIAL ONE (17:58)
[2020-02-03] MEDS ORDERED: MORPHINE 4 MG/ML SYR ONE (17:58)
[2020-02-03 18:01] LABS: Urine Blood 1+ (NEG); Urine Glucose NEGATIVE (NEG); Urine Protein 3+ (NEG); Urine Specific Gravity 1.025 (1.005-1.030); Urine pH 6.5 (5.0-7.0)
[2020-02-03 18:29] LABS: Albumin 2.4 g/dL (3.4-5.0); Bilirubin Direct 0.2 mg/dL (0-0.2); Bilirubin Total 0.5 mg/dL (0.2-1.0); Potassium 3.1 mmol/L (3.5-5.1); Protein, Total 7.8 g/dL (6.4-8.2); Troponin (Emerg Dept Use Only) 0.3 ng/mL (0.0-0.045)
--- NOTE | 2020-02-03 19:07 | RAD REPORT ---
EXAM DESCRIPTION: RAD - Chest Single View - 02/03/2020 7:02 pm CLINICAL HISTORY: left sided flank pain Chest pain. COMPARISON: Chest Single View dated 01/28/2020; Chest Single View dated 01/25/2020; Chest Single View dated 07/10/2018; Chest Single View dated 04/23/2018; Abdomen Pelvis W Contrast dated 02/03/2020 FINDINGS: Portable technique limits examination quality. Mild improvement is seen in bilateral pulmonary opacities since 01/28/2020 study. The heart is upper limit normal in size. No displaced fractures. IMPRESSION: Mild improvement in lung aeration since comparative examination.
--- NOTE | 2020-02-03 19:38 | ER ---
Nurse's Notes [facility] Name: Amaury Matamoros Age: 69 yrs Sex: Male : 1950 Arrival Date: 02/03/2020 Time: 15:39 Bed 18 Private MD: Diagnosis: Elevated Troponin Presentation: 02/02 15:49 Chief complaint: Patient states: Pain on Lower back radiating to the abdominal area x 2 ca1 days. Denies urinary symptoms. Has started taking 2 new medication since Sunday. Denies N/V/D. Coronavirus screen: Patient denies a cough. Patient denies shortness of breath or difficulty breathing. Patient denies measured and/or subjective temperature greater than 100.4F prior to today's visit. Patient denies travel on a cruise ship or to a country the [facility] currently lists as an affected area. Patient denies contact with known and/or suspected case of COVID-19. Proceed with normal triage. Ebola Screen: Patient negative for fever greater than or equal to 101.5 degrees Fahrenheit, and additional compatible Ebola Virus Disease symptoms Patient denies exposure to infectious person. Patient denies travel to an Ebola-affected area in the 21 days before illness onset. No symptoms or risks identified at this time. Initial Sepsis Screen: Does the patient meet any 2 criteria? No. Patient's initial sepsis screen is negative. Does the patient have a suspected source of infection? No. Patient's initial sepsis screen is negative. Risk Assessment: Do you want to hurt yourself or someone else? Patient reports no desire to harm self or others. Onset of symptoms was February 03, 2020. 15:49 Method Of Arrival: Ambulatory ca1 15:49 Acuity: ALEJANDRA 3 ca1 Historical: - Allergies: 15:53 PENICILLINS; ca1 - PMHx: 15:53 Cellulitis; Diabetes - NIDDM; Hypertension; ca1 - PSHx: 15:53 left leg amputee; ca1 - Immunization history:: Adult Immunizations up to date. - Social history:: Smoking status: Patient reports the use of cigarette tobacco products, denies chronic smoking, but will smoke occasionally. Screenin:44 Abuse screen: Denies threats or abuse. Denies injuries from another. Nutritional ph screening: No deficits noted. Tuberculosis screening: No symptoms or risk factors identified. Fall Risk None identified. Assessment: 17:00 General: Appears in no apparent distress. uncomfortable, slender, Behavior is calm, ph cooperative, appropriate for age, Denies fever. Pain: Complains of pain in right lower quadrant and left lower quadrant Pain radiates to back. Neuro: Level of Consciousness is awake, alert, obeys commands, Oriented to person, place, time, situation. Cardiovascular: Capillary refill < 3 seconds in bilateral fingers Patient's skin is warm and dry. Respiratory: Airway is patent Respiratory effort is even, unlabored, Respiratory pattern is regular, symmetrical. GI: Reports lower abdominal pain, Patient currently denies diarrhea, nausea, vomiting. : Reports pain in suprapubic area in lower back Denies burning with urination, urinary frequency. Derm: Skin is intact, is healthy with good turgor, Skin is pink, warm \T\ dry. 18:00 Reassessment: Patient appears in no apparent distress at this time. Patient and/or ph family updated on plan of care and expected duration. Pain level reassessed. Patient is alert, oriented x 3, equal unlabored respirations, skin warm/dry/pink. 19:06 Reassessment: Patient appears in no apparent distress at this time. Patient and/or ph family updated on plan of care and expected duration. Pain level reassessed. Patient is alert, oriented x 3, equal unlabored respirations, skin warm/dry/pink. 19:34 Reassessment: Patient and/or family updated on plan of care and expected duration. Pain mt2 level reassessed. GIVEN SNACK REQUESTED. OK BY PROVIDER Patient denies pain at this time. 20:27 Reassessment: Patient and/or family updated on plan of care and expected duration. Pain mt2 level reassessed. Patient denies pain at this time. 21:38 Reassessment: Patient and/or family updated on plan of care and expected duration. Pain mt2 level reassessed. Patient denies pain at this time. 22:13 Reassessment: Patient and/or family updated on plan of care and expected duration. Pain mt2 level reassessed. Patient denies pain at this time. Vital Signs: 15:49 BP 142 / 79; Pulse 73; Resp 15 S; Temp 97.9(TE); Pulse Ox 100% on R/A; Weight 61.23 kg ca1 (R); Height 5 ft. 2 in. (157.48 cm) (R); 18:07 BP 130 / 64; Pulse 78; Resp 18; Pulse Ox 95% on R/A; ph 19:34 BP 166 / 88; Pulse 86; Resp 17; Pulse Ox 97% on R/A; Pain 0/10; mt2 20:27 BP 163 / 73; Pulse 79; Resp 16; Pulse Ox 99% on R/A; mt2 21:38 BP 130 / 76; Pulse 79; Resp 17; Temp 97.9(TE); Pulse Ox 99% on R/A; Pain 0/10; mt2 22:13 BP 160 / 81; Pulse 80; Resp 17; Pulse Ox 97% on R/A; mt2 15:49 Body Mass Index 24.69 (61.23 kg, 157.48 cm) ca1 Vitals: 19:34 Cardiac Rhythm Assessment Regular Sinus rhythm. mt2 ED Course: 15:39 Patient arrived in ED. fj1 15:52 Triage completed. ca1 15:53 Arm band placed on right wrist. ca1 16:32 Durga Manning PA is PHCP. jmm 16:32 Jose Powell MD is Attending Physician. jmm 16:44 Lora Roe, COURTNEY is Primary Nurse. ph 16:45 Patient has correct armband on for positive identification. Bed in low position. Call ph light in reach. Side rails up X 1. Pulse ox on. NIBP on. Door closed. Noise minimized. Warm blanket given. 17:35 Inserted saline lock: 20 gauge in left forearm, using aseptic technique. dh4 17:36 Missed attempt(s): 20 gauge in right forearm. dh4 17:38 CT Abd/Pelvis - IV Contrast Only In Process Unspecified. EDMS 18:09 No provider procedures requiring assistance completed. ph 19:03 Chest Single View XRAY In Process Unspecified. EDMS 19:37 Quincy Wilkinson is Hospitalizing Provider. jmm 21:38 COVID-19 Sent. mt2 22:27 Patient admitted, IV remains in place. mt2 Administered Medications: 17:50 Drug: Zofran (Ondansetron) 4 mg Route: IVP; Site: right forearm; ph 18:07 Follow up: Response: No adverse reaction ph 18:01 Drug: morphine 4 mg Route: IVP; Site: right forearm; ph 18:06 Follow up: Response: No adverse reaction ph 20:08 Drug: Lovenox 1 mg/kg {Note: DOUBLE CHECKED WITH SARA Zarate RN.} Route: Sub-Q; Site: mt2 right lower abdomen; 20:29 Follow up: Response: No adverse reaction mt2 Outcome: 19:37 Decision to Hospitalize by Provider. robert 22:14 Condition: stable mt2 22:26 Admitted to Med/surg accompanied by tech, via stretcher, room 403, Report called to mt2 chad licona rn 22:26 Instructed on the need for admit. 23:07 Patient left the ED. mt2 Signatures: Dispatcher [employer] EDMS Durga Manning PA PA [facility] Lora Roe RN RN ph Hailee Munguia RN RN [facility] Kyree Hernandez [facility] Nick Garcia [facility] Ruby Garcia RN RN mt2 Corrections: (The following items were deleted from the chart) 18:06 18:01 morphine 4 mg IVP in right antecubital ph ph 18:09 18:07 Pulse 78bpm; Resp 18bpm; Pulse Ox 95% RA; ph ph
--- NOTE | 2020-02-03 19:38 | EDPHYS ---
Physician Documentation [facility] Name: Amaury Matamoros Age: 69 yrs Sex: Male : 1950 Arrival Date: 02/03/2020 Time: 15:39 Bed 18 Private MD: ED Physician Jose Powell HPI: 02/02 17:11 This 69 yrs old Male presents to ER via Ambulatory with complaints of ADVERSE jmm REACTION TO MEDICATION. 17:11 The patient presents with abdominal pain. Onset: The symptoms/episode began/occurred jmm gradually, 2 day(s) ago. The symptoms do not radiate. Associated signs and symptoms: Pertinent positives: nausea and vomiting, Pertinent negatives: fever. Modifying factors: The symptoms are alleviated by nothing, the symptoms are aggravated by. This is a 69 year old male with a history of DM, htn that presents to the ED with complaints of left sided abdominal pain beginning approx 2 days ago. Seen in the ED 1 week ago. . Historical: - Allergies: 15:53 PENICILLINS; ca1 - PMHx: 15:53 Cellulitis; Diabetes - NIDDM; Hypertension; ca1 - PSHx: 15:53 left leg amputee; ca1 - Immunization history:: Adult Immunizations up to date. - Social history:: Smoking status: Patient reports the use of cigarette tobacco products, denies chronic smoking, but will smoke occasionally. ROS: 17:14 Constitutional: Negative for fever, chills, and weight loss, Cardiovascular: Negative jmm for chest pain, palpitations, and edema, Respiratory: Negative for shortness of breath, cough, wheezing, and pleuritic chest pain. 17:14 Abdomen/GI: Positive for abdominal pain, diarrhea. 17:14 All other systems are negative. Exam: 17:14 Constitutional: This is a well developed, well nourished patient who is awake, alert, jmm and in no acute distress. Head/Face: atraumatic. Eyes: EOMI, no conjunctival erythema appreciated ENT: Moist Mucus Membranes Neck: Trachea midline, Supple Chest/axilla: Normal chest wall appearance and motion. Cardiovascular: Regular rate and rhythm. No edema appreciated Respiratory: Normal respirations, no respiratory distress appreciated 17:14 Back: Normal ROM Skin: General appearance color normal MS/ Extremity: Moves all extremities, no obvious deformities appreciated, no edema noted to the lower extremities Neuro: Awake and alert, normal gait Psych: Behavior is normal, Mood is normal, Patient is cooperative and pleasant 17:14 Abdomen/GI: Inspection: abdomen appears normal, Bowel sounds: normal, Palpation: soft, moderate abdominal tenderness, in the left lower quadrant. Vital Signs: 15:49 BP 142 / 79; Pulse 73; Resp 15 S; Temp 97.9(TE); Pulse Ox 100% on R/A; Weight 61.23 kg ca1 (R); Height 5 ft. 2 in. (157.48 cm) (R); 18:07 BP 130 / 64; Pulse 78; Resp 18; Pulse Ox 95% on R/A; ph 19:34 BP 166 / 88; Pulse 86; Resp 17; Pulse Ox 97% on R/A; Pain 0/10; mt2 20:27 BP 163 / 73; Pulse 79; Resp 16; Pulse Ox 99% on R/A; mt2 21:38 BP 130 / 76; Pulse 79; Resp 17; Temp 97.9(TE); Pulse Ox 99% on R/A; Pain 0/10; mt2 22:13 BP 160 / 81; Pulse 80; Resp 17; Pulse Ox 97% on R/A; mt2 15:49 Body Mass Index 24.69 (61.23 kg, 157.48 cm) ca1 MDM: 17:01 Patient medically screened. [facility] 19:36 Data reviewed: vital signs, nurses notes. Counseling: I had a detailed discussion with pavithra the patient and/or guardian regarding: the historical points, exam findings, and any diagnostic results supporting the discharge/admit diagnosis, lab results, radiology results, the need for further work-up and treatment in the hospital. ED course: I discussed the patient with Dr. Wilkinson whom accepted patient for further evaluation of elevated troponin. . 02/02 17:10 Order name: Basic Metabolic Panel; Complete Time: 18:39 [facility] 02/02 17:10 Order name: CBC with Diff; Complete Time: 17:47 [facility] 02/02 17:10 Order name: Hepatic Function; Complete Time: 18:39 [facility] 02/02 17:10 Order name: Lipase; Complete Time: 18:39 [facility] 02/02 17:10 Order name: Troponin (emerg Dept Use Only); Complete Time: 18:39 [facility] 02/02 17:30 Order name: Urine Dipstick--Ancillary (enter results); Complete Time: 18:02 bd 02/02 17:10 Order name: CT Abd/Pelvis - IV Contrast Only; Complete Time: 17:58 [facility] 02/02 17:58 Order name: CREATININE WHOLE BLOOD; Complete Time: 17:58 [facility] 02/02 18:10 Order name: Urine Microscopic Only; Complete Time: 19:56 ph 02/02 18:40 Order name: Chest Single View XRAY; Complete Time: 19:10 [facility] 02/02 21:25 Order name: COVID-19 lp1 02/02 17:10 Order name: IV Saline Lock; Complete Time: 18:15 [facility] 02/02 17:10 Order name: Labs collected and sent; Complete Time: 18:15 [facility] 02/02 17:10 Order name: Urine Dipstick-Ancillary (obtain specimen); Complete Time: 18:03 [facility] 02/02 18:40 Order name: EKG - Nurse/Tech; Complete Time: 19:28 [facility] Administered Medications: 17:50 Drug: Zofran (Ondansetron) 4 mg Route: IVP; Site: right forearm; ph 18:07 Follow up: Response: No adverse reaction ph 18:01 Drug: morphine 4 mg Route: IVP; Site: right forearm; ph 18:06 Follow up: Response: No adverse reaction ph 20:08 Drug: Lovenox 1 mg/kg {Note: DOUBLE CHECKED WITH SARA Zarate RN.} Route: Sub-Q; Site: mt2 right lower abdomen; 20:29 Follow up: Response: No adverse reaction mt2 Disposition: 02/03 08:32 Co-signature as Attending Physician, Jose Powell MD. rn Disposition: 02/03/20 19:37 Hospitalization ordered by Quincy Wilkinson for Observation. Preliminary diagnosis is Elevated Troponin. - Bed requested for Telemetry/MedSurg (observation). - Status is Observation. mt2 - Condition is Stable. - Problem is new. - Symptoms are unchanged. Signatures: Dispatcher [employer] [facility] Vesta Delong RN RN mw Mickail, Joel, PA PA Jose Wilkins MD MD rn Danyelle, Horacio, PEDIATRIC INTENSIVE PHYSICIAN-C PEDIATRIC INTENSIVE PHYSICIAN-Cla1 Lora Roe RN RN ph Hailee Munguia RN RN ca1 Ruby Garcia RN RN mt2 Corrections: (The following items were deleted from the chart) 02/02 21:50 19:37 Hospitalization Ordered by Quincy Wilkinson for Observation. Preliminary diagnosis mw is Elevated Troponin. Bed requested for Telemetry/MedSurg (observation). Status is Observation. Condition is Stable. Problem is new. Symptoms are unchanged. [facility] 23:07 21:50 02/03/2020 19:37 Hospitalization Ordered by Quincy Wilkinson for Observation. mt2 Preliminary diagnosis is Elevated Troponin. Bed requested for Telemetry/MedSurg (observation). Status is Observation. Condition is Stable. Problem is new. Symptoms are unchanged. mw
[2020-02-03 19:52] LABS: Urine Bacteria <20 /HPF (NONE SEEN); Urine Culture Reflex Order NOT NEEDED
[2020-02-03] MEDS ORDERED: ENOXAPARIN 60 MG/0.6 ML SQ ONE (20:03)
--- NOTE | 2020-02-03 22:32 | P.HP ---
Certification for Inpatient Patient admitted to: Observation With expected LOS: <2 Midnights Practitioner: I am a practitioner with admitting privileges, knowledge of patient current condition, hospital course, and medical plan of care. Services: Services provided to patient in accordance with Admission requirements found in Title 42 Section 412.3 of the Code of Federal Regulations Patient History Date of Service: 02/03/20 Reason for admission: Elevated troponin History of Present Illness: 69-year-old gentleman with a history of diabetes mellitus type 2, peripheral vascular disease status post left BKA, recent history of anemia secondary to GI bleed from peptic ulcer disease, history of liver cirrhosis secondary to chronic alcoholism presented to the ED with a complaint of abdominal pain of onset yesterday. He was previously hospitalized for a complaint of abdominal pain and diarrhea. He was supposed to follow up with GI-Dr. Barnett for outpatient endoscopy but has not been able to do so. CT abdomen and pelvis done in the ED was unremarkable. His troponin in the ED is elevated to 0.3 which is new. Given his history of peripheral vascular disease and DM, he is considered high risk for CAD. Patient is placed under observation for ACS rule out. Allergies Penicillins Allergy (Intermediate, Verified 03/03/19 18:20) Rash Home Medications: Metoprolol Tartrate [Lopressor*] 25 mg PO BID 6AM 6PM 01/26/20 lisinopriL [Prinivil*] 10 mg PO DAILY 01/26/20 Folic Acid 1 mg PO DAILY #30 tablet 01/29/20 Furosemide [Lasix] 20 mg PO DAILY PRN #30 tab 01/29/20 Glimepiride 1 mg PO DAILY #30 tablet 01/29/20 Guaifenesin [Mucinex] 600 mg PO BID PRN #15 tab.er.12h 01/29/20 Pantoprazole [Protonix Tab*] 40 mg PO BIDAC #60 tab 01/29/20 Thiamine HCl 100 mg PO DAILY #30 tablet 01/29/20 levoFLOXacin [Levaquin*] 500 mg PO DAILY #5 tab 01/29/20 - Past Medical/Surgical History Diabetic: Yes -: Diabetes mellitus type 2, [id number] -: DM-NIDDM -: Alcohol Abuse -: Tobacco Abuse -: Hypertension -: Chronic pain -: Chronic sacral ulcer -: Left Knee Surgery -: Left BKA with Prosthetic blood -: surg wnd on coccyx wound Psychosocial/ Personal History: He is , has 4 children. He is disabled. - Family History Father -: Heart disease, Hypertension, Diabetes, Cancer Mother -: Diabetes, Stroke - Social History Alcohol use: Yes CD- Drugs: No Caffeine use: No Review of Systems Other: Except as documented, other systems reviewed and negative. Physical Examination - Physical Exam General: Alert, In no apparent distress, Oriented x3 HEENT: Mucous membr. moist/pink, Sclerae nonicteric Neck: Supple, JVD not distended Respiratory: Clear to auscultation bilaterally, Normal air movement Cardiovascular: No edema, Regular rate/rhythm, Normal S1 S2 Capillary refill: <2 Seconds Gastrointestinal: Normal bowel sounds, Soft and benign, Non-distended, No tenderness Musculoskeletal: No swelling, Other (Left BKA) Integumentary: No tenderness/swelling, No erythema Neurological: Normal strength at 5/5 x4 extr, Cranial nerves 3-12 intact - Studies Laboratory Data (last 24 hrs) 02/03/20 17:33: WBC 8.9, Hgb 10.1 L, Hct 31.5 L D, Plt Count 206 D 02/03/20 17:33: Sodium 140, Potassium 3.1 L, BUN 23 H, Creatinine 1.28, Glucose 84, Total Bilirubin 0.5, AST 38 H, ALT 22, Alkaline Phosphatase 100, Lipase 348 Assessment and Plan - Problems (Diagnosis) (1) Elevated troponin Current Visit: Yes Status: Acute (2) History of GI bleed Current Visit: Yes Status: Acute (3) Abdominal pain Current Visit: Yes Status: Acute (4) History of gastric ulcer Current Visit: Yes Status: Acute (5) Diabetes mellitus Onset Date: 08/08/16 Current Visit: No Status: Chronic Qualifiers: Diabetes mellitus type: type 2 Diabetes mellitus salvage determiner insulin use: unspecified skilled nursing insulin use status Diabetes mellitus complication status: with skin complications Diabetes mellitus complication detail: with other skin complication Qualified Code(s): E11.628 - Type 2 diabetes mellitus with other skin complications - Plan Place under observation. Trend troponin. Will avoid anticoagulation and aspirin for now given recent history of GI bleed and severe anemia. Will consider anticoagulation and aspirin if troponin trend up. Recent echocardiogram reviewed and reports mild diastolic dysfunction and normal EF. Cardiology consult. His abdominal pain could be related to history of gastric ulcer. Continue IV protonix and monitor. Manage blood sugar with insulin sliding scale. Monitor CBC. - Advance Directives Does patient have a Living Will: No Does patient have a Durable POA for Healthcare: No
[2020-02-03] MEDS ORDERED: ACETAMINOPHEN 500 MG TAB PO PRN (23:09)
[2020-02-03 23:54] VITALS: BMI 22.1
[2020-02-03] MEDS ORDERED: POTASSIUM 25 MEQ EFFERV TAB PO ONE (23:59)
[2020-02-04] MEDS ORDERED: INSULIN -REGULAR HUMAN 50 UNIT/0.5 ML ML SQ SCH
[2020-02-04 00:41] LABS: Troponin I 0.27 ng/mL (0.0-0.045)
[2020-02-04] MEDS ORDERED: MAGNES/ALUMIN/SIMET 30ML UCUP PO ONE (03:03)
[2020-02-04 03:56] LABS: Magnesium 1.6 mg/dL (1.8-2.4)
[2020-02-04 03:59] LABS: Absolute Lymphocytes (CBC) 1.2 K/uL (0.7-4.9); Basophils % 0.4 % (0-1.3); Hematocrit 26.8 % (39.6-49.0); Lymphocytes % 15.5 % (15.3-44.8); MPV 9.1 fL (7.6-11.3); RBC Red Blood Cell Count 3.53 M/uL (4.33-5.43)
[2020-02-04] MEDS ORDERED: MORPHINE 2 MG/ML SYR IV PRN (04:22)
[2020-02-04] MEDS: INSULIN -REGULAR HUMAN 50 UNIT/0.5 ML ML SQ SCH ×3 (07:30→16:30)
[2020-02-04] MEDS ORDERED: GUAIFENESIN 600 MG SA TAB PO PRN (07:41)
[2020-02-04] MEDS ORDERED: FUROSEMIDE 20 MG TABLET PO PRN (07:41)
--- NOTE | 2020-02-04 07:41 | P.PN ---
Subjective Date of Service: 02/04/20 Chief Complaint: Elevated troponin Patient was complaining of abdominal pain needing IV morphine last night. This morning patient denies any complain and wants to eat. As a matter of fact he was asking for when breakfast is served. He denies any chest pain. Physical Examination - Vital Signs Temperature: 98.1 F Blood Pressure: 171/92 Pulse: 85 Respirations: 16 Pulse Ox (%): 97 - Physical Exam General: Alert, In no apparent distress, Oriented x3 HEENT: Mucous membr. moist/pink Neck: JVD not distended Respiratory: Clear to auscultation bilaterally, Normal air movement Cardiovascular: No edema, Regular rate/rhythm, Normal S1 S2 Gastrointestinal: Normal bowel sounds, Soft and benign, No tenderness Musculoskeletal: Other Integumentary: No rashes, No erythema Neurological: Normal strength at 5/5 x4 extr, Cranial nerves 3-12 intact - Studies Laboratory Data (last 24 hrs) 02/03/20 17:33: WBC 8.9, Hgb 10.1 L, Hct 31.5 L D, Plt Count 206 D 02/03/20 17:33: Sodium 140, Potassium 3.1 L, BUN 23 H, Creatinine 1.28, Glucose 84, Total Bilirubin 0.5, AST 38 H, ALT 22, Alkaline Phosphatase 100, Lipase 348 Microbiology Data (last 24 hrs): 02/03/20 21:05 Nasopharnyx Coronavirus COVID-19 PCR - Final Assessment And Plan - Current Problems (Diagnosis) (1) Elevated troponin Current Visit: Yes Status: Acute (2) History of GI bleed Current Visit: Yes Status: Acute (3) Abdominal pain Current Visit: Yes Status: Acute (4) History of gastric ulcer Current Visit: Yes Status: Acute (5) Diabetes mellitus Onset Date: 08/08/16 Current Visit: No Status: Chronic Qualifiers: Diabetes mellitus type: type 2 Diabetes mellitus skilled nursing insulin use: unspecified skilled nursing insulin use status Diabetes mellitus complication status: with skin complications Diabetes mellitus complication detail: with other skin complication Qualified Code(s): E11.628 - Type 2 diabetes mellitus with other skin complications - Plan Troponin trended flat with no acute increase to suggest ACS. Drop in hemoglobin to 8 noted Will avoid anticoagulation and aspirin for now given recent history of GI bleed and anemia. Recent echocardiogram reviewed and reports mild diastolic dysfunction and normal EF. Cardiology consult is pending. His abdominal pain could be related to history of gastric ulcer. Continue protonix. Patient is currently asymptomatic. Manage blood sugar with insulin sliding scale. Monitor CBC.
[2020-02-04] MEDS: METOPROLOL TAR 25 MG TAB PO SCH ×2 (08:37→17:18)
[2020-02-04] MEDS: GABAPENTIN 300 MG CAP PO SCH ×2 (08:37→13:04)
[2020-02-04] MEDS ORDERED: levoFLOXacin 500 MG TAB PO SCH (09:00)
[2020-02-04] MEDS ORDERED: lisinopriL 10 MG TAB PO SCH (09:00)
[2020-02-04] MEDS ORDERED: HEPARIN 5000 UNIT/ML 1 ML VIAL SQ SCH (09:00)
[2020-02-04] MEDS ORDERED: MAGNESIUM SULFATE 1 gm IVPB 1 GM/100 ML BAG IV ONE (09:00)
[2020-02-04] MEDS ORDERED: FOLIC ACID 1 MG TABLET PO SCH (09:00)
[2020-02-04 11:50] VITALS: O2SAT 94
--- NOTE | 2020-02-04 12:13 | CON ---
Reason For Consultation: Elevated troponin. Subjective: The patient is a 69-year-old male, who has a history of GI bleed, ulcers documented in O ct2018. He has a history of hypertension, diabetes. He is status post left BKA. He is followe d by Dr. Velásquez. He came into the hospital because of what appeared to be side effects to some of his medications. No chest pain. No nausea, vomiting, diaphoresis, PND, orthopnea, pedal edema, pal pitation, or syncope. He had a creatinine of 1.45. He was hypotensive. Hemoglobin was 8.7. The tr oponin was 0.38. Echocardiogram that was done this month showed an ejection fraction was normal with decreased left ventricular compliance. He had a negative nuclear study in 2017. Had an arterial Do ppler in May 2019 that was normal. Past Medical History: As stated above. Allergies: HE IS ALLERGIC TO PENICILLIN. Review of Systems: Negative. Social History: Negative. Family History: Noncontributory. Medications: Listed by Dr. Wilkinson. Physical Examination: Vital Signs: Blood pressure was 171/92, sinus rhythm. HEENT: Negative. Neck: Supple with no bruit. Chest: Clear. Cardiac: Exam revealed a regular rhythm and rate with an S4 gallops. No murmurs or rubs. Abdomen: Benign. Extremities: Revealed no clubbing, cyanosis, or edema. Diagnostic Data: As stated earlier. Impression And Plan: Elevated troponin. This could be caused by renal insufficiency, his anemia. The patient has had a normal stress test 2 years ago. Had a normal echo with ejection frac tion last month. He had normal arterial Doppler in May 2019. I do not plan to do any further c ardiac workup on him at this point. I think once he is discharged, we can certainly repeat a stress test as an outpatient and I will make plans for that. His other problems including hypertension and diabetes are stable. GI bleed is stable secondary to ulcer, status post left BKA. His blood pressur e needs to be attended with increasing some of his medications. From my standpoint, he can go home w bree it is okay with Dr. Wilkinson and I will see him as an outpatient. HI/MELY Voice ID: [id number] Report ID: [id number]
--- NOTE | 2020-02-04 12:33 | EKG ---
Test Date: 2020-02-03 Test Time: 19:24:09 Perioperative Assistant: ASHLYN MEASUREMENT RESULTS: Intervals: Rate: 77 AL: 148 QRSD: 96 QT: 402 QTc: 454 [place]: P: 54 AL: 148 QRS: 16 T: 10 INTERPRETIVE STATEMENTS: Normal sinus rhythm ST abnormality, possible digitalis effect Abnormal ECG Compared to ECG 03/03/2019 12:09:23 ST (T wave) deviation now present Sinus bradycardia no longer present Electronically Signed On 02-04-20 12:31:24 CDT by Noah Keyes
[2020-02-04 13:16] VITALS: TEMP 98.1
[2020-02-04] MEDS ORDERED: PANTOPRAZOLE 40MG TABLET PO SCH (16:30)
[2020-02-04 16:59] VITALS: BP 149/86
--- NOTE | 2020-02-05 09:20 | P.DS ---
Admission Date: 02/03/20 Discharge Date: 02/04/20 Disposition: ROUTINE DISCHARGE Discharge Condition: FAIR Reason for Admission: Elevated troponin - Problems (1) Elevated troponin Status: Acute (2) History of GI bleed Status: Acute (3) Abdominal pain Status: Acute (4) History of gastric ulcer Status: Acute (5) Diabetes mellitus Onset Date: 08/08/16 Status: Chronic Qualifiers: Diabetes mellitus type: type 2 Diabetes mellitus senior living insulin use: unspecified senior living insulin use status Diabetes mellitus complication status: with skin complications Diabetes mellitus complication detail: with other skin complication Qualified Code(s): E11.628 - Type 2 diabetes mellitus with other skin complications Brief History of Present Illness: 69-year-old gentleman with a history of diabetes mellitus type 2, peripheral vascular disease status post left BKA, recent history of anemia secondary to GI bleed from peptic ulcer disease, history of liver cirrhosis secondary to chronic alcoholism presented to the ED with a complaint of abdominal pain of onset yesterday. He was previously hospitalized for a complaint of abdominal pain and diarrhea. He was supposed to follow up with GI-Dr. Barnett for outpatient endoscopy but has not been able to do so. CT abdomen and pelvis done in the ED was unremarkable. His troponin in the ED is elevated to 0.3 which is new. Given his history of peripheral vascular disease and DM, he is considered high risk for CAD. Patient was placed under observation for ACS rule out. Hospital Course: Troponin trended was flat which did not indicate an acute coronary syndrome. Patient was asymptomatic during the hospital stay. He was seen and evaluated by Cardiology-Dr. Keyes. Patient have had a normal echocardiogram last month and a normal stress test 2 years ago. Elevated troponin deemed to be secondary to decreased renal clearance from renal insufficiency. Dr. Keyes recommended no further cardiac workup as inpatient and will follow him as an outpatient for arrangement for stress test in the near future. Patient deemed clinically stable for discharge. No changes made in his home medications. Vital Signs/Physical Exam: Temp Pulse Resp BP Pulse Ox 98.1 F 75 17 149/86 H 95 02/04/20 16:00 02/04/20 17:18 02/04/20 16:00 02/04/20 17:18 02/04/20 16:00 General: Alert, In no apparent distress, Oriented x3 HEENT: Mucous membr. moist/pink Respiratory: Clear to auscultation bilaterally, Normal air movement Cardiovascular: No edema, Normal pulses, Regular rate/rhythm, Normal S1 S2 Gastrointestinal: Normal bowel sounds, Soft and benign, No tenderness Musculoskeletal: No swelling, No erythema Neurological: Other (Non-focal) Laboratory Data at Discharge: WBC 7.5 K/uL (4.3-10.9) D 02/04/20 03:19 Hgb 8.7 g/dL (13.6-17.9) L 02/04/20 03:19 Hct 26.8 % (39.6-49.0) L 02/04/20 03:19 Plt Count 129 K/uL (152-406) L D 02/04/20 03:19 Sodium 138 mmol/L (136-145) 02/04/20 03:19 Potassium 4.0 mmol/L (3.5-5.1) 02/04/20 03:19 BUN 23 mg/dL (7-18) H 02/04/20 03:19 Creatinine 1.45 mg/dL (0.55-1.3) H 02/04/20 03:19 Glucose 116 mg/dL (74-106) H 02/04/20 03:19 Magnesium 1.6 mg/dL (1.8-2.4) L 02/04/20 03:19 Total Bilirubin 0.5 mg/dL (0.2-1.0) 02/03/20 17:33 AST 38 U/L (15-37) H 02/03/20 17:33 ALT 22 U/L (12-78) 02/03/20 17:33 Alkaline Phosphatase 100 U/L (45-117) 02/03/20 17:33 Troponin I 0.28 ng/mL (0.0-0.045) H 02/04/20 03:19 Triglycerides 159 mg/dL (<150) H 02/03/20 23:29 Cholesterol 110 mg/dL (<200) 02/03/20 23:29 HDL Cholesterol 19 mg/dL (40-60) L 02/03/20 23:29 Cholesterol/HDL Ratio 5.79 02/03/20 23:29 Lipase 348 U/L (73-393) 02/03/20 17:33 Home Medications: Metoprolol Tartrate [Lopressor*] 25 mg PO BID 6AM 6PM 01/26/20 lisinopriL [Prinivil*] 10 mg PO DAILY 01/26/20 Folic Acid 1 mg PO DAILY #30 tablet 01/29/20 Furosemide [Lasix*] 20 mg PO DAILY PRN #30 tab 01/29/20 Glimepiride 1 mg PO DAILY #30 tablet 01/29/20 Guaifenesin [Mucinex] 600 mg PO BID PRN #15 tab.er.12h 01/29/20 Pantoprazole [Protonix Tab*] 40 mg PO BIDAC #60 tab 01/29/20 levoFLOXacin [Levaquin*] 500 mg PO DAILY #5 tab 01/29/20 Gabapentin 1 tab PO TID 02/04/20 Metformin ER [Glucophage ER*] 1,000 mg PO BID 02/04/20 Metoprolol Tartrate [Lopressor*] 25 mg PO BID 30 Days #60 tab 02/04/20 Metoprolol Tartrate [Lopressor*] 25 mg PO BID 6AM 6PM tab 02/04/20 New Medications: Metoprolol Tartrate [Lopressor*] 25 mg PO BID 30 Days #60 tab Diet: ADA Activity: Ad yoanna Followup: Noah Keyes MD [ACTIVE - CAN ADMIT] -
== END 2020-02-04 17:43 | disposition home or self-care (01) ==
LOC: ER 15:26 → ERHOLD 21:56 → 4TH 22:07 → 2ND 02-04 03:09
PROVIDERS: ADMIT Internal Medicine; ATTEND Internal Medicine
DX: R79.89 Other specified abnormal findings of blood chemistry (principal); N28.9 Disorder of kidney and ureter, unspecified; R10.9 Unspecified abdominal pain; Z11.59 Encounter for screening for other viral diseases; K74.60 Unspecified cirrhosis of liver; R94.31 Abnormal electrocardiogram [ECG] [EKG]; E11.51 Type 2 diabetes mellitus with diabetic peripheral angiopathy without gangrene; I10 Essential (primary) hypertension; G89.29 Other chronic pain; F17.210 Nicotine dependence, cigarettes, uncomplicated; Z79.84 Long term (current) use of oral hypoglycemic drugs; Z79.899 Other long term (current) drug therapy; Z89.512 Acquired absence of left leg below knee; Z87.11 Personal history of peptic ulcer disease; Z86.2 Personal history of diseases of the blood and blood-forming organs and certain disorders involving the immune mechanism; Z87.19 Personal history of other diseases of the digestive system
CPT/HCPCS: 93005; 85025 ×2; 80048 ×2; 36415; 83735; 80061; 82565; 82947 ×4; 80076; 84484 ×3; 83690; 74177; 71045; 96375; 96372; 96374; 99285; U0002; Q9967; J1644; J3475; J1650; J2270; J2405; G0378 ×2; 81003; 81015

== ENCOUNTER 2020-03-03 13:44 | Emergency (ER) | payer OTHER ==
--- OUTSIDE RECORDS SUMMARY | 2020-03-03 13:46 | XMS REPORT | Continuity of Care Document ---
:[address] 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 hyperglyce hyperglyce en t [facility] Essential Essential Problem Active [facility] hypertensi hypertensi Estrella kes - on on Memoria l [facility] Clin[facility] History of History of Diagnosis Active [facility] left below left below Estrella kes - knee knee Memoria amputation amputation l [facility] Heavy Heavy Problem Active [facility] sensation sensation Luke s - of lower of lower Memori a extremity extremity l [facility]ics Right foot Right foot Problem Active [facility] pain pain [facility] - Memoria l [facility] Anemia, Anemia, Diagnosis Active [facility] unspecifie unspecifie Estrella kes - d type d type Memoria l [facility] Diabetes Diabetes Problem Active [facility] Abnormal Abnormal Diagnosis Active [facility] renal renal [facility] - function function Memori a test test l [facility] Decreased Decreased Problem Active [facility] sensation sensation Luke s - of foot of foot Memoria l [facility] Onychomyco Onychomyco Problem Active [facility] sis sis [facility] Skin Skin Problem Active [facility] lesions lesions [facility] - [facility] l [facility] Skin Skin Problem Active [facility] cancer cancer [facility] - [facility] l [facility] Right leg Right leg Problem Active [facility] paresthesi paresthesi Estrella kes - as as Memoria l [facility] ent Clinics Blurry Blurry Diagnosis Active [facility] vision, vision, [facility] - bilateral bilateral Marcel kathy l [facility] ent Clinics Allergies, Adverse Reactions, Alerts This patient has no known allergies or adverse reactions. Medications Ordered Filled Start Stop Current Ordering Indication Dosage Frequency Signature Comments Components Source Medication Medication Date Date Medication? Clinician (SIG) Name Name Lisinopril Lisinopril Yes Karyna [address] [facility] Millender [facility] Hydrochloro Hydrochloro Yes Karyna [address] [facility] thiazide thiazide Millender in the [facility] - morning [facility] Pantoprazol Pantoprazol Yes Karyna [address] e Sodium e Sodium Millender Estrella [facility] Metoprolol Metoprolol Yes Karyna [address] [address] Tartrate Tartrate Millender with food [facility] Metformin Metformin Yes Karyna [address] HCl HCl Millender with a [facility]ukes - meal [facility] Ferrous Ferrous Yes Karyna [address] [address] Sulfate Sulfate Millender [facility] Amlodipine Amlodipine Yes Karyna [address] [facility] [address] Besylate Besylate Millender [facility] Gabapentin Gabapentin Yes Karyna [address] [facility] Mill[facility] Procedures This patient has no known procedures. Encounters Start End Encounter Admission Attending Care Care Encounter Source Date/Time Date/Time Type Type Clinicians Facility Department ID 2019-09-21 2019-09-21 Outpatient Giana [facility] [id number] [facility] 21:47:00 21:47:00 [facility] ent Clinics 2019-09-19 2019-09-19 Outpatient Giana [facility] [id number] [address] 13:30:00 13:30:00 [facility] Medicine [facility] 2019-09-10 2019-09-10 [place] [id number] [address] 10:15:00 10:15:00 [facility] 2019-06-20 2019-06-20 [place]patient [place] [id number] 13:20:00 13:20:00 [facility] Medicine [facility] 2019-03-21 2019-03-21 [place]patient [place] [id number] 11:20:00 11:20:00 [facility] Medicine Outpati ent Clinics Results This patient has no known results.
--- NOTE | 2020-03-03 14:55 | RAD REPORT ---
EXAM DESCRIPTION: CT - Head C Spine Cap Wo Con - 03/03/2020 2:33 pm CLINICAL HISTORY: Trauma, head and neck injury. Chest, abdomen and pelvis pain. s/pfall with left faciallinjury;Pain COMPARISON: No comparisons TECHNIQUE: CT head without contrast. CT cervical spine without contrast with coronal and sagittal reformatted images. CT chest, abdomen and pelvis without contrast with coronal and sagittal reformatted images of the spi ne. All CT scans are performed using dose optimization technique as appropriate and may include automated exposure control or mA/KV adjustment according to patient size. FINDINGS: CT HEAD WITHOUT CONTRAST: No intracranial hemorrhage, hydrocephalus or extra-axial fluid collection. Mild generalized brain atr ophy is present with moderate periventricular and deep white matter chronic microvascular ischemic ch anges. No areas of brain edema or midline shift. The paranasal sinuses and mastoids are clear. The calvarium is intact. Mild soft tissue is seen no le ft zygoma. CT CERVICAL SPINE WITHOUT CONTRAST: No fracture or subluxation. Moderate midcervical degenerative changes. The prevertebral soft tissues are normal in thickness. CT CHEST, ABDOMEN, PELVIS WITHOUT CONTRAST: NOTE: Lack of contrast is a significant limitation in the assessment of trauma related findings. Spec ifically, solid organ, vascular and bowel evaluation is significantly limited. The lungs demonstrate fibrotic and emphysematous changes.No pneumothorax or pericardial/pleural fluid . No evidence of intra-abdominal visceral injury, free fluid or free air is seen within the above detai led limitations. Mild liver cirrhosis. No acute fractures. IMPRESSION: Negative for acute traumatic findings within the above detailed limitations.
[2020-03-03 15:07] LABS: Absolute Lymphocytes (CBC) 0.9 K/uL (0.7-4.9); Basophils % 1.2 % (0-1.3); Hematocrit 26.8 % (39.6-49.0); Lymphocytes % 18.9 % (15.3-44.8); MPV 9.6 fL (7.6-11.3); RBC Red Blood Cell Count 3.36 M/uL (4.33-5.43)
[2020-03-03 15:21] LABS: Potassium 3.8 mmol/L (3.5-5.1)
[2020-03-03 15:49] LABS: Anisocytosis 1+; Blood Morphology Comment NOTED (NOT SEEN); Platelet Estimate DECR; White Blood Cell Scan OK
[2020-03-03] MEDS ORDERED: HYDROCODONE/APAP 7.5/325 MG TAB ONE (17:00)
[2020-03-03] MEDS ORDERED: TETANUS & DIPHTHERIA TOX,ADULT 0.5 ML VIAL ONE (17:03)
[2020-03-03] MEDS ORDERED: LIDOCAINE 1% MPF 5 ML VIAL ONE (18:09)
--- NOTE | 2020-03-03 19:05 | ER ---
Nurse's Notes [facility] Name: Amaury Matamoros Age: 69 yrs Sex: Male : 1950 Arrival Date: 03/03/2020 Time: 13:46 Bed 5 Private MD: Diagnosis: Syncope and collapse;Superficial injury of head;Facial laceration and contusion Presentation: 03/03 13:57 Chief complaint: Patient states: Passed out while walking outside about 1 hour [employer]. ll1 States he doesn't remember even walking outside. Neighbor stated he fell face first into ground. Abrasion with hematoma to left eyebrow. His son picked him up off the ground and brought him here. Coronavirus screen: Client denies travel out of the [place] in the last 14 days. At this time, the client does not indicate any symptoms associated with coronavirus-19. Ebola Screen: Patient denies travel to an Ebola-affected area in the 21 days before illness onset. Initial Sepsis Screen: Does the patient meet any 2 criteria? No. Patient's initial sepsis screen is negative. Risk Assessment: Do you want to hurt yourself or someone else? Patient reports no desire to harm self or others. Onset of symptoms was March 03, 2020. 13:57 Method Of Arrival: Ambulatory ll1 13:57 Acuity: ALEJANDRA 2 ll1 14:00 Initial Sepsis Screen: Does the patient have a suspected source of infection? No. sv Patient's initial sepsis screen is negative. 14:00 Care prior to arrival: None. Mechanism of Injury: Fall from standing position. Trauma sv event details: Injury occurred in the [facility], Injury occurred: at home. Injury occurred: March 03, 2020. Trauma Activation: Not Applicable Physician: ED Physician; Name: ; Notified At: ; Arrived At: Physician: General Surgeon; Name: ; Notified At: ; Arrived At: Physician: Radiology; Name: ; Notified At: ; Arrived At: Physician: Respiratory; Name: ; Notified At: ; Arrived At: Physician: Lab; Name: ; Notified At: ; Arrived At: Historical: - Allergies: 14:00 PENICILLINS; ll1 - PMHx: 14:00 Cellulitis; Diabetes - NIDDM; Hypertension; ll1 - PSHx: 14:00 left leg amputee; ll1 - Immunization history:: Flu vaccine is up to date. - Social history:: Smoking status: Patient reports the use of cigarette tobacco products, denies chronic smoking, but will smoke occasionally, Patient/guardian denies using alcohol, street drugs. - Immunization history: Last tetanus immunization: unknown. Screenin:00 Abuse screen: Denies threats or abuse. Denies injuries from another. Nutritional sv screening: No deficits noted. Tuberculosis screening: No symptoms or risk factors identified. Fall Risk None identified. Primary Survey: 14:05 NO uncontrolled hemorrhage observed. A: The patient is alert. Airway: patent, No sv supplemental oxygen in use on arrival. Oral cavity: clear, Trachea midline. Breathing/Chest: Respiratory pattern: regular, Respiratory effort: spontaneous, unlabored, Chest inspection: symmetrical rise and fall of the chest. Circulation: Pulses: palpable right radial artery and left radial artery. Skin color: pink, Skin temperature: warm, dry. Disability Alert. Exposure/Environment: All clothing and personal items were removed. Forensic evidence collection is not deemed to be indicated at this time. Items placed in patient belonging bag. There is no evidence of uncontrolled external bleeding. A warming method has been applied: A warm blanket has been provided to the patient. 14:50 Reassessment Airway Airway Patent Oxygen No O2 Oral cavity Clear Trachea Midline sv Breathing/Chest Respiratory pattern Regular Respiratory effort Spontaneous Unlabored Chest inspection Symmetrical Circulation Pulses Palpable Color [place] Temperature Warm Dry Disability Alert. 15:45 Reassessment Airway Airway Patent Oxygen No O2 Oral cavity Clear Trachea Midline hb Breathing/Chest Respiratory pattern Regular Respiratory effort Spontaneous Unlabored Chest inspection Symmetrical Circulation Color [place] Temperature Warm Dry Disability Alert. 16:45 Reassessment Airway Airway Patent Oxygen No O2 Oral cavity Clear Trachea Midline hb Breathing/Chest Respiratory pattern Regular Respiratory effort Spontaneous Unlabored Chest inspection Symmetrical Circulation Color [place] Temperature Warm Dry Disability Alert. 17:45 Reassessment Airway Airway Patent Oxygen No O2 Oral cavity Clear Trachea Midline hb Breathing/Chest Respiratory pattern Regular Respiratory effort Spontaneous Unlabored Chest inspection Symmetrical Circulation Color [place] Temperature Warm Dry Disability Alert. 18:43 Reassessment Airway Airway Patent Oxygen No O2 Oral cavity Clear Trachea Midline hb Breathing/Chest Respiratory pattern Regular Respiratory effort Spontaneous Unlabored Chest inspection Symmetrical Circulation Color [place] Temperature Warm Dry Disability Alert. Secondary Survey: 14:05 HEENT: Head Other abrasion and hematoma noted to left eyebrow. Gastrointestinal: No sv deficits noted. : No deficits noted. No signs and/or symptoms were reported regarding the genitourinary system. Musculoskeletal: No deficits noted. No signs and/or symptoms reported regarding the musculoskeletal system. Injury Description: Abrasion. Assessment: 16:25 Reassessment: Saline soaked 4x4 gauze placed on pt's eyebrow. sv 16:58 Reassessment: Patient appears in no apparent distress at this time. No changes from sv previously documented assessment. Patient and/or family updated on plan of care and expected duration. Pain level reassessed. Patient is alert, oriented x 3, equal unlabored respirations, skin warm/dry/pink. 17:41 Reassessment: Waiting on MD for wound assessment. sv 18:05 Reassessment: Patient appears in no apparent distress at this time. Patient and/or sv family updated on plan of care and expected duration. Pain level reassessed. Patient is alert, oriented x 3, equal unlabored respirations, skin warm/dry/pink. 19:20 General: Appears in no apparent distress. comfortable, Behavior is calm, cooperative, rr5 appropriate for age, call made to his son informed patient is for discharge. 19:20 Pain: Denies pain. Neuro: Level of Consciousness is awake, alert, obeys commands, rr5 Oriented to person, place, time. Cardiovascular: Capillary refill < 3 seconds Patient's skin is warm and dry. Respiratory: Airway is patent Respiratory effort is even, unlabored, Respiratory pattern is regular, symmetrical. Derm: Wound noted outer aspect of left eyebrow and left supraorbital ridge Wound is post suture. 20:15 Reassessment: Patient appears in no apparent distress at this time. Patient is alert, rr5 oriented x 3, equal unlabored respirations, skin warm/dry/pink. discharge instruction given and explained without complaints made. Vital Signs: 13:57 BP 150 / 99; Pulse 74; Resp 18; Temp 97.8; Pulse Ox 100% ; Weight 60.33 kg; Height 5 ll1 ft. 2 in. (157.48 cm); Pain 10/10; 14:50 BP 200 / 99; Pulse 77; Resp 16; Pulse Ox 100% ; sv 15:30 BP 200 / 100; Pulse 74; Resp 17; Pulse Ox 100% ; sv 16:00 BP 201 / 99; Pulse 76; Resp 16; Pulse Ox 100% ; sv 16:58 BP 202 / 91; Pulse 76; Resp 16; Pulse Ox 100% ; sv 17:41 BP 159 / 95; Pulse 78; Resp 16; Pulse Ox 100% ; sv 18:20 BP 148 / 83; Pulse 75; Resp 16; Pulse Ox 99% ; sv 19:20 BP 141 / 75; Pulse 70; Resp 16; Pulse Ox 99% ; rr5 13:57 Body Mass Index 24.33 (60.33 kg, 157.48 cm) ll1 Bristol Coma Score: 14:50 Eye Response: spontaneous(4). Verbal Response: oriented(5). Motor Response: obeys sv commands(6). Total: 15. 16:58 Eye Response: spontaneous(4). Verbal Response: oriented(5). Motor Response: obeys sv commands(6). Total: 15. Trauma Score (Adult): 14:50 Eye Response: spontaneous(1); Verbal Response: oriented(1); Motor Response: obeys sv commands(2); Systolic BP: > 89 mm Hg(4); Respiratory Rate: 10 to 29 per min(4); Bristol Score: 15; Trauma Score: 12 15:00 Eye Response: spontaneous(1); Verbal Response: oriented(1); Motor Response: obeys hb commands(2); Systolic BP: > 89 mm Hg(4); Respiratory Rate: 10 to 29 per min(4); Bristol Score: 15; Trauma Score: 12 16:00 Eye Response: spontaneous(1); Verbal Response: oriented(1); Motor Response: obeys hb commands(2); Systolic BP: > 89 mm Hg(4); Respiratory Rate: 10 to 29 per min(4); Bristol Score: 15; Trauma Score: 12 16:58 Eye Response: spontaneous(1); Verbal Response: oriented(1); Motor Response: obeys sv commands(2); Systolic BP: > 89 mm Hg(4); Respiratory Rate: 10 to 29 per min(4); Siobhan Score: 15; Trauma Score: 12 17:00 Eye Response: spontaneous(1); Verbal Response: oriented(1); Motor Response: obeys hb commands(2); Systolic BP: > 89 mm Hg(4); Respiratory Rate: 10 to 29 per min(4); Bristol Score: 15; Trauma Score: 12 18:00 Eye Response: spontaneous(1); Verbal Response: oriented(1); Motor Response: obeys hb commands(2); Systolic BP: > 89 mm Hg(4); Respiratory Rate: 10 to 29 per min(4); Bristol Score: 15; Trauma Score: 12 ED Course: 13:46 Patient arrived in ED. ds1 13:59 Triage completed. ll1 14:00 Arm band placed on. ll1 14:00 Patient has correct armband on for positive identification. Bed in low position. Call sv light in reach. Side rails up X2. Pulse ox on. NIBP on. Door closed. Head of bed elevated. 14:00 Patient maintains SpO2 saturation greater than 95% on room air. Thermoregulation: warm sv blanket given to patient. 14:06 Gold Sorto MD is Attending Physician. kdr 14:33 CT Traumagram (Head C Spine CAP wo con) In Process Unspecified. EDMS 14:50 Initial lab(s) drawn, by me, sent to lab. T\T\S collected, blood band applied to patient. dh3 Inserted saline lock: 20 gauge in right forearm, using aseptic technique. Blood collected. 15:02 Kasia Shukla, COURTNEY is Primary Nurse. sv 15:48 pts son...[phone]. bd 19:09 Primary Nurse role handed off by Kasia Shukla RN sv 19:19 Young Palumbo, RN is Primary Nurse. rr5 20:15 No provider procedures requiring assistance completed. IV discontinued, intact, rr5 bleeding controlled, No redness/swelling at site. Pressure dressing applied. 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 Exp: sv 09/04/2022. Lot #: [id number]. } Route: IM; Site: right deltoid; Intake: 14:05 PO: 0ml; Total: 0ml. sv 14:50 PO: 0ml; Total: 0ml. sv 16:58 PO: 0ml; Total: 0ml. sv Output: 14:05 Urine: 0ml; Total: 0ml. sv 14:50 Urine: 0ml; Total: 0ml. sv 16:58 Urine: 0ml; Total: 0ml. sv Outcome: 16:25 Patient's length of stay in the Emergency Department was greater than 2 hours. d/t sv wound delayPatient's length of stay extended due to 19:04 Discharge ordered by . kdr 20:15 Patient left the ED. rr5 20:15 Discharged to home ambulatory, with cane rr5 20:15 Condition: stable 20:15 Discharge instructions given to patient, Instructed on discharge instructions, follow up and referral plans. medication usage, Demonstrated understanding of instructions, follow-up care, medications, Prescriptions given X 1. Signatures: Dispatcher [employer] EDMS Estela Alcantar Stephanie, RN RN sv Rittger, Kevin, MD MD kdr Sanford, Demi ds1 Micaela Zuñiga RN RN Charito Stafford 3 Young Palumbo RN RN rr5 Bairon Rivera RN RN ll1
--- NOTE | 2020-03-03 19:05 | EDPHYS ---
Physician Documentation [facility] Name: Amaury Matamoros Age: 69 yrs Sex: Male : 1950 Arrival Date: 03/03/2020 Time: 13:46 Bed 5 Private MD: ED Physician Gold Sorto HPI: 03/03 16:47 This 69 yrs old Male presents to ER via Ambulatory with complaints of Fall kdr Injury, Head Injury With LOC-Adult. 16:47 Details of fall: The patient fell from an upright position, while standing. Onset: The kdr symptoms/episode began/occurred suddenly, just prior to arrival. Associated injuries: The patient sustained injury to the head, abrasion, hematoma, laceration. Severity of symptoms: At their worst the symptoms were mild, moderate, just prior to arrival, in the emergency department the symptoms have improved. It is unknown whether or not the patient has had similar symptoms in the past. It is unknown whether or not the patient has recently seen a physician. The patient was found down on the ground by son and neighbor. He has no idea how he got there, He recalls watching TV and then being on the ground outside. He now c/o pain to the left superior orbit. Historical: - Allergies: 14:00 PENICILLINS; ll1 - PMHx: 14:00 Cellulitis; Diabetes - NIDDM; Hypertension; ll1 - PSHx: 14:00 left leg amputee; ll1 - Immunization history:: Flu vaccine is up to date. - Social history:: Smoking status: Patient reports the use of cigarette tobacco products, denies chronic smoking, but will smoke occasionally, Patient/guardian denies using alcohol, street drugs. - Immunization history: Last tetanus immunization: unknown. ROS: 16:47 Constitutional: Negative for fever, chills, and weight loss, Eyes: Negative for injury, kdr pain, redness, and discharge, ENT: Negative for injury, pain, and discharge, Neck: Negative for injury, pain, and swelling, Cardiovascular: Negative for chest pain, palpitations, and edema, Respiratory: Negative for shortness of breath, cough, wheezing, and pleuritic chest pain, Abdomen/GI: Negative for abdominal pain, nausea, vomiting, diarrhea, and constipation, Back: Negative for injury and pain, : Negative for injury, bleeding, discharge, and swelling, MS/Extremity: Negative for injury and deformity, Psych: Negative for depression, anxiety, suicide ideation, homicidal ideation, and hallucinations, Allergy/Immunology: Negative for hives, rash, and allergies, Endocrine: Negative for neck swelling, polydipsia, polyuria, polyphagia, and marked weight changes, Hematologic/Lymphatic: Negative for swollen nodes, abnormal bleeding, and unusual bruising. 16:47 Skin: Positive for laceration(s). 16:47 Neuro: Positive for syncope, weakness, Negative for altered mental status, dizziness, gait disturbance, headache. Exam: 16:47 Constitutional: This is a well developed, well nourished patient who is awake, alert, kdr and in no acute distress. Eyes: Pupils equal round and reactive to light, extra-ocular motions intact. Lids and lashes normal. Conjunctiva and sclera are non-icteric and not injected. Cornea within normal limits. Periorbital areas with no swelling, redness, or edema. ENT: Nares patent. No nasal discharge, no septal abnormalities noted. Tympanic membranes are normal and external auditory canals are clear. Oropharynx with no redness, swelling, or masses, exudates, or evidence of obstruction, uvula midline. Mucous membranes moist. Neck: Trachea midline, no thyromegaly or masses palpated, and no cervical lymphadenopathy. Supple, full range of motion without nuchal rigidity, or vertebral point tenderness. No Meningismus. Chest/axilla: Normal chest wall appearance and motion. Nontender with no deformity. No lesions are appreciated. Cardiovascular: Regular rate and rhythm with a normal S1 and S2. No gallops, murmurs, or rubs. Normal PMI, no JVD. No pulse deficits. Respiratory: Lungs have equal breath sounds bilaterally, clear to auscultation and percussion. No rales, rhonchi or wheezes noted. No increased work of breathing, no retractions or nasal flaring. Abdomen/GI: Soft, non-tender, with normal bowel sounds. No distension or tympany. No guarding or rebound. No evidence of tenderness throughout. Back: No spinal tenderness. No costovertebral tenderness. Full range of motion. MS/ Extremity: Pulses equal, no cyanosis. Neurovascular intact. Full, normal range of motion. Neuro: Awake and alert, GCS 15, oriented to person, place, time, and situation. Cranial nerves II-XII grossly intact. Motor strength 5/5 in all extremities. Sensory grossly intact. Cerebellar exam normal. Normal gait. Psych: Awake, alert, with orientation to person, place and time. Behavior, mood, and affect are within normal limits. 16:47 Skin: Appearance: normal except for affected area, injury, laceration(s), The patient has a stellate laceration to the left lateral superior orbit. Vital Signs: 13:57 BP 150 / 99; Pulse 74; Resp 18; Temp 97.8; Pulse Ox 100% ; Weight 60.33 kg; Height 5 ll1 ft. 2 in. (157.48 cm); Pain 10/10; 14:50 BP 200 / 99; Pulse 77; Resp 16; Pulse Ox 100% ; sv 15:30 BP 200 / 100; Pulse 74; Resp 17; Pulse Ox 100% ; sv 16:00 BP 201 / 99; Pulse 76; Resp 16; Pulse Ox 100% ; sv 16:58 BP 202 / 91; Pulse 76; Resp 16; Pulse Ox 100% ; sv 17:41 BP 159 / 95; Pulse 78; Resp 16; Pulse Ox 100% ; sv 18:20 BP 148 / 83; Pulse 75; Resp 16; Pulse Ox 99% ; sv 19:20 BP 141 / 75; Pulse 70; Resp 16; Pulse Ox 99% ; rr5 13:57 Body Mass Index 24.33 (60.33 kg, 157.48 cm) ll1 Siobhan Coma Score: 14:50 Eye Response: spontaneous(4). Verbal Response: oriented(5). Motor Response: obeys sv commands(6). Total: 15. 16:58 Eye Response: spontaneous(4). Verbal Response: oriented(5). Motor Response: obeys sv commands(6). Total: 15. Trauma Score (Adult): 14:50 Eye Response: spontaneous(1); Verbal Response: oriented(1); Motor Response: obeys sv commands(2); Systolic BP: > 89 mm Hg(4); Respiratory Rate: 10 to 29 per min(4); [place] Score: 15; Trauma Score: 12 15:00 Eye Response: spontaneous(1); Verbal Response: oriented(1); Motor Response: obeys hb commands(2); Systolic BP: > 89 mm Hg(4); Respiratory Rate: 10 to 29 per min(4); Siobhan Score: 15; Trauma Score: 12 16:00 Eye Response: spontaneous(1); Verbal Response: oriented(1); Motor Response: obeys hb commands(2); Systolic BP: > 89 mm Hg(4); Respiratory Rate: 10 to 29 per min(4); [place] Score: 15; Trauma Score: 12 16:58 Eye Response: spontaneous(1); Verbal Response: oriented(1); Motor Response: obeys sv commands(2); Systolic BP: > 89 mm Hg(4); Respiratory Rate: 10 to 29 per min(4); Siobhan Score: 15; Trauma Score: 12 17:00 Eye Response: spontaneous(1); Verbal Response: oriented(1); Motor Response: obeys hb commands(2); Systolic BP: > 89 mm Hg(4); Respiratory Rate: 10 to 29 per min(4); Siobhan Score: 15; Trauma Score: 12 18:00 Eye Response: spontaneous(1); Verbal Response: oriented(1); Motor Response: obeys hb commands(2); Systolic BP: > 89 mm Hg(4); Respiratory Rate: 10 to 29 per min(4); [place] Score: 15; Trauma Score: 12 Laceration: 19:17 Wound Repair of 2cm ( 0.8in ) subcutaneous laceration to outer aspect of left eyebrow kdr and left supraorbital ridge. Distal neuro/vascular/tendon intact. Anesthesia: Local anesthetic administered with 2 mls of 1% lidocaine. Wound prep: Moderate cleansing with betadine, Wound irrigation with saline by pa, Copious irrigation. Skin closed with 4 5-0 Prolene using simple sutures and sterile technique. Dressed with Neosporin. Patient tolerated well. MDM: 16:47 Data reviewed: vital signs, nurses notes, lab test result(s), radiologic studies. kdr Counseling: I had a detailed discussion with the patient and/or guardian regarding: the historical points, exam findings, and any diagnostic results supporting the discharge/admit diagnosis, lab results, radiology results. 19:04 Patient medically screened. kdr 03/03 14:20 Order name: Basic Metabolic Panel; Complete Time: 15:59 kdr 03/03 14:20 Order name: CBC with Diff; Complete Time: 15:59 kdr 03/03 14:20 Order name: CT Traumagram (Head C Spine CAP wo con); Complete Time: 15:59 [facility] 03/03 14:20 Order name: Type And Screen; Complete Time: 15:59 [facility] 03/03 15:49 Order name: CBC Smear Scan; Complete Time: 15:59 [facility] 03/03 14:20 Order name: Labs collected and sent; Complete Time: 14:54 kdr 03/03 16:15 Order name: Diet Ada 1800 Yaw; Complete Time: 16:15 sv Administered Medications: 16:56 Drug: Dewart (7.5 mg-325 mg) 1 tabs {Note: rass1.} Route: PO; sv 16:57 Drug: Tetanus-Diphtheria Toxoid Adult 0.5 ml {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 Exp: sv 09/04/2022. Lot #: [id number]. } Route: IM; Site: right deltoid; Disposition: 03/03/20 19:04 Discharged to Home. Impression: Syncope and collapse, Superficial injury of head, Facial laceration and contusion. - Condition is Stable. - Discharge Instructions: Facial Laceration, Crym-ex-Cldw, Syncope, Qgrt-mh-Betm, Head Injury, Adult, Yjqz-jp-Ojig. - Prescriptions for Doxycycline Hyclate 100 mg Oral Tablet - take 1 tablet by ORAL route every 12 hours; 10 tablet. - Medication Reconciliation Form, Thank You Letter, Antibiotic Education form. - Follow up: Private Physician; When: 2 - 3 days; Reason: If symptoms return, Further diagnostic work-up, Recheck today's complaints, Continuance of care, Re-evaluation by your physician. - Problem is new. - Symptoms are resolved. Signatures: Dispatcher [employer] [facility] Kasia Shukla, RN RN Gold Sorto MD MD kdr Roque, Raymond RN RN rr5 Bairon Rivera RN RN ll1 Corrections: (The following items were deleted from the chart) 14:23 14:20 Head C Spine MPR Wo Con+CT.RAD.BRZ ordered. [facility] 20:15 19:04 03/03/2020 19:04 Discharged to Home. Impression: Syncope and collapse; rr5 Superficial injury of head; Facial laceration and contusion. Condition is Stable. Forms are Medication Reconciliation Form, Thank You Letter, Antibiotic Education, Prescription Opioid Use. Follow up: Private Physician; When: 2 - 3 days; Reason: If symptoms return, Further diagnostic work-up, Recheck today's complaints, Continuance of care, Re-evaluation by your physician. Problem is new. Symptoms are resolved. kdr
[2020-03-03 21:02] VITALS: TEMP 97.8
[2020-03-03 21:10] VITALS: BP 148/83; O2SAT 99
== END 2020-03-03 20:15 | disposition home or self-care (01) ==
LOC: ER 13:44
PROC: 0JQ10ZZ Repair Face Subcutaneous Tissue and Fascia, Open Approach (ICD-10-PCS; principal; 2020-03-03)
DX: S01.112A Laceration without foreign body of left eyelid and periocular area, initial encounter (principal); W19.XXXA Unspecified fall, initial encounter; Y93.89 Activity, other specified; Y92.89 Other specified places as the place of occurrence of the external cause; Z23 Encounter for immunization; Z88.0 Allergy status to penicillin; I10 Essential (primary) hypertension; F17.210 Nicotine dependence, cigarettes, uncomplicated
CPT/HCPCS: 36415; 70450; 71250; 72125; 80048; 85025; 86850; 86900; 86901; 90471; 90714; 99284

== ENCOUNTER 2020-03-23 10:04 | Emergency (ER) | payer OTHER ==
--- NOTE | 2020-03-23 10:40 | EDPHYS ---
Physician Documentation [facility] Name: Amaury Matamoros Age: 69 yrs Sex: Male : 1950 Arrival Date: 03/23/2020 Time: 10:06 Bed 18 Private MD: Karyna Velásquez ED Physician Jose Powell HPI: 03/23 10:20 This 69 yrs old Male presents to ER via Wheelchair with complaints of Wound cp Infection. 10:20 The patient presents with open wound, drainage. The complaints affect the amputation cp site of left lower extremity. Onset: The symptoms/episode began/occurred 2 day(s) ago. Associated signs and symptoms: Pertinent negatives fever. Historical: - Allergies: 10:13 PENICILLINS; ll1 - PMHx: 10:13 Cellulitis; Diabetes - NIDDM; Hypertension; ll1 - PSHx: 10:13 left leg amputee; ll1 - Immunization history:: Flu vaccine is not up to date. - Social history:: Smoking status: Patient reports the use of cigarette tobacco products, denies chronic smoking, but will smoke occasionally, smokes one-half pack cigarettes per day, Patient/guardian denies using alcohol, street drugs. ROS: 10:25 Skin: Positive for of the amputation site left leg, pressure wound. cp 10:25 Constitutional: Negative for body aches, chills, fever. cp 10:25 All other systems are negative. Exam: 10:30 Constitutional: The patient appears in no acute distress, alert, awake, non-toxic, well cp developed, well nourished. 10:30 Skin: pressure ulcer noted at amputation site of BKA of left lower extremity with cp minimal erythema noted, minimal swelling noted and no drainage expressed. Vital Signs: 10:13 BP 173 / 88; Pulse 70; Resp 17; Temp 98.2; Pulse Ox 100% ; Pain 9/10; ll1 MDM: 10:20 Patient medically screened. cp 10:40 Data reviewed: vital signs, nurses notes. cp 10:40 Counseling: I had a detailed discussion with the patient and/or guardian regarding: the cp historical points, exam findings, and any diagnostic results supporting the discharge/admit diagnosis, the need for outpatient follow up, a general surgeon, wound care, to return to the emergency department if symptoms worsen or persist or if there are any questions or concerns that arise at home. Administered Medications: No medications were administered Disposition: 10:45 Chart complete. cp 15:17 Co-signature as Attending Physician, Jose Powell MD. rn Disposition: 03/23/20 10:40 Discharged to Home. Impression: Pressure ulcer - left lower extremity. - Condition is Stable. - Discharge Instructions: Wound Infection. - Prescriptions for Doxycycline Monohydrate 100 mg Oral Tablet - take 1 tablet by ORAL route every 12 hours for 10 days; 20 tablet. - Medication Reconciliation Form, Thank You Letter, Antibiotic Education, Prescription Opioid Use form. - Follow up: Finn López MD; When: 1 - 2 days; Reason: Wound Recheck. - Problem is new. - Symptoms have improved. Signatures: Jose Powell MD MD rn Wally Espinosa PA PA cp Micaela Zuñiga RN RN Bairon Rivera RN RN ll1 Corrections: (The following items were deleted from the chart) 11:00 10:40 03/23/2020 10:40 Discharged to Home. Impression: Pressure ulcer - left lower hb extremity. Condition is Stable. Prescriptions for Doxycycline Monohydrate 100 mg Oral Tablet - take 1 tablet by ORAL route every 12 hours for 10 days; 20 tablet. and Forms are Medication Reconciliation Form, Thank You Letter, Antibiotic Education, Prescription Opioid Use. Follow up: Finn López; When: 1 - 2 days; Reason: Wound Recheck. Problem is new. Symptoms have improved. cp
--- NOTE | 2020-03-23 10:40 | ER ---
Nurse's Notes [facility] Name: Amaury Matamoros Age: 69 yrs Sex: Male : 1950 Arrival Date: 03/23/2020 Time: 10:06 Bed 18 Private MD: Karyna Velásquez Diagnosis: Pressure ulcer-left lower extremity Presentation: 03/23 10:13 Chief complaint: Patient states: Left leg stump infection with foul odor for 2 days. No ll1 fever. Reports bloody drainage. Coronavirus screen: Client denies travel out of the [place] in the last 14 days. At this time, the client does not indicate any symptoms associated with coronavirus-19. Ebola Screen: Patient denies travel to an Ebola-affected area in the 21 days before illness onset. Initial Sepsis Screen: Does the patient meet any 2 criteria? No. Patient's initial sepsis screen is negative. Risk Assessment: Do you want to hurt yourself or someone else? Patient reports no desire to harm self or others. Onset of symptoms was March 21, 2020. 10:13 Method Of Arrival: Wheelchair ll1 10:13 Acuity: ALEJANDRA 3 ll1 Historical: - Allergies: 10:13 PENICILLINS; ll1 - PMHx: 10:13 Cellulitis; Diabetes - NIDDM; Hypertension; ll1 - PSHx: 10:13 left leg amputee; ll1 - Immunization history:: Flu vaccine is not up to date. - Social history:: Smoking status: Patient reports the use of cigarette tobacco products, denies chronic smoking, but will smoke occasionally, smokes one-half pack cigarettes per day, Patient/guardian denies using alcohol, street drugs. Screenin:20 Abuse screen: Denies threats or abuse. Denies injuries from another. Nutritional jl7 screening: No deficits noted. Tuberculosis screening: No symptoms or risk factors identified. Assessment: 10:20 General: Appears in no apparent distress. uncomfortable, Behavior is calm, cooperative. jl7 Pain: Complains of pain in left BKA Pain currently is 9 out of 10 on a pain scale. Neuro: Level of Consciousness is awake, alert, obeys commands, Oriented to person, place, time, situation. Cardiovascular: Patient's skin is warm and dry. Respiratory: Airway is patent Respiratory effort is even, unlabored, Respiratory pattern is regular, symmetrical. Derm: Skin is pink, warm \T\ dry. Wound noted distal portion of left BKA Wound is no drainage noted. Vital Signs: 10:13 BP 173 / 88; Pulse 70; Resp 17; Temp 98.2; Pulse Ox 100% ; Pain 9/10; ll1 ED Course: 10:06 Patient arrived in ED. mr 10:06 Karyna Velásquez MD is Private Physician. mr 10:14 Triage completed. ll1 10:14 Arm band placed on Patient placed in an exam room, on a stretcher. ll1 10:17 Wally Espinosa PA is PHCP. cp 10:17 Jose Powell MD is Attending Physician. cp 10:[address], RN is Primary Nurse. jl7 10:20 Patient has correct armband on for positive identification. Bed in low position. Call jl7 light in reach. Side rails up X 1. Pulse ox on. NIBP on. 10:39 Finn López MD is Referral Physician. cp Administered Medications: No medications were administered Outcome: 10:40 Discharge ordered by MD. cp 11:00 Patient left the ED. hb Signatures: Mare Burnett mr Wally Espinosa PA PA cp Micaela Zuñiga, COURTNEY RN Laura Lane, RN RN jl7 Bairon Rivera RN RN ll1
--- OUTSIDE RECORDS SUMMARY | 2020-03-23 10:49 | XMS REPORT | Continuity of Care Document ---
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 a mellitus mellitus l with with [facility] hyperglyce hyperglyce en t [facility] Essential Essential Problem Active [facility] hypertensi hypertensi Estrella kes - on on Memoria l [facility] Clinics History of History of Diagnosis Active [facility] left below left below Estrella kes - knee knee Memoria amputation amputation l [facility] Heavy Heavy Problem Active [facility] sensation sensation Luke s - of lower of lower Memori a extremity extremity l [facility] Right foot Right foot Problem Active [facility] pain pain [facility] Memoria l [facility] Anemia, Anemia, Diagnosis Active [facility] unspecifie unspecifie Estrella kes - d type d type Memoria l [facility] Diabetes Diabetes Problem Active [facility] Abnormal Abnormal Diagnosis Active [facility] renal renal [facility] - function function Memori a test test l [facility] Decreased Decreased Problem Active [facility] sensation sensation Luke s - of foot of foot Memoria l [facility] Onychomyco Onychomyco Problem Active [facility] sis sis [facility] Skin Skin Problem Active [facility] lesions lesions [facility] l [facility] Skin Skin Problem Active [facility] cancer cancer [facility] Right leg Right [...] Yes Karyna [address] [facility] Millender [facility] Hydrochloro Hydrochloro Yes Karyna [address] [facility] thiazide thiazide Millender in the [facility] - morning [facility] Pantoprazol Pantoprazol Yes Karyna [address] e Sodium e Sodium Millender [facility] Metoprolol Metoprolol Yes Karyna [address] Tartrate Tartrate Millender with food [facility] Metformin Metformin Yes Karyna [address] [facility] [address] HCl HCl Millender with a [facility] - meal [facility] Ferrous Ferrous Yes Karyna [address] Sulfate Sulfate Millender [facility] Amlodipine Amlodipine Yes Karyna [address] [address] Besylate Besylate Millender [facility] Gabapentin Gabapentin Yes Karyna [address] [facility] Millender [facility] Procedures This patient has no known procedures. Encounters Start End Encounter Admission Attending Care Care Encounter Source Date/Time Date/Time Type Type Clinicians Facility Department ID 2019-09-21 2019-09-21 Outpatient Giana [facility] [id number] 21:47[facility]00 21:47:00 [facility] Clinics 2019-09-19 2019-09-19 Outpatient Giana [facility] [id number] 13:30[facility]00 13:30:00 [facility] 2019-09-10 2019-09-10 [place] [id number] 10:15:00 10:15:00 [facility]ics 2019-06-20 2019-06-20 [place] [id number] 13:20:00 13:20:00 [facility] Clin[facility] 2019-03-21 2019-03-21 [place] [id number] [facility] 11:20:00 11:20:00 [facility] Medicine Out[facility] ent Clinics Results This patient has no known results.
[2020-03-23] MEDS ORDERED: DOXYCYCLINE 100 MG CAP PO ONE (10:55)
[2020-03-23] MEDS ORDERED: HYDROCODONE/APAP 5/325 MG TAB ONE (10:55)
[2020-03-23 17:23] VITALS: BP 173/88; TEMP 98.2; O2SAT 100
== END 2020-03-23 11:00 | disposition home or self-care (01) ==
LOC: ER 10:04
DX: L89.899 Pressure ulcer of other site, unspecified stage (principal); Z89.9 Acquired absence of limb, unspecified; I10 Essential (primary) hypertension; F17.210 Nicotine dependence, cigarettes, uncomplicated; Z88.0 Allergy status to penicillin
CPT/HCPCS: 99282

== ENCOUNTER 2020-04-15 10:44 | Emergency (ER) | payer OTHER ==
[2020-04-15 12:52] LABS: Basophils % 0.3 % (0-1.3); Hematocrit 25.3 % (39.6-49.0); Lymphocytes % 21.5 % (15.3-44.8); MPV 9.3 fL (7.6-11.3); RBC Red Blood Cell Count 3.08 M/uL (4.33-5.43)
[2020-04-15 12:58] LABS: Potassium 4.1 mmol/L (3.5-5.1)
--- NOTE | 2020-04-15 13:33 | ER ---
Nurse's Notes [facility] Name: Amaury Matamoros Age: 69 yrs Sex: Male : 1950 Arrival Date: 04/15/2020 Time: 10:49 Bed 20 Private MD: Alfonzo Mera Diagnosis: Other slipping, tripping and stumbling and falls;Superficial injury of head;Anemia, unspecified Presentation: 04/15 10:54 Chief complaint: Patient states: Fell back today while waiting on the doctor. Hit back ll1 of head, unknown LOC. Right knee pain with abrasion. Sent by Dr. Mera for eval. Coronavirus screen: Client denies travel out of the [place] in the last 14 days. At this time, the client does not indicate any symptoms associated with coronavirus-19. Ebola Screen: Patient denies travel to an Ebola-affected area in the 21 days before illness onset. Initial Sepsis Screen: Does the patient meet any 2 criteria? No. Patient's initial sepsis screen is negative. Risk Assessment: Do you want to hurt yourself or someone else? Patient reports no desire to harm self or others. Onset of symptoms was April 15, 2020. 10:54 Method Of Arrival: Wheelchair ll1 10:54 Acuity: ALEJANDRA 3 ll1 12:52 Initial Sepsis Screen: Does the patient have a suspected source of infection? No. ph Patient's initial sepsis screen is negative. 12:52 Care prior to arrival: None. Mechanism of Injury: Fall from standing position. Trauma ph event details: Injury occurred in the [facility], Injury occurred: in a public building. Injury occurred: April 15, 2020. Trauma Activation: Not Applicable Physician: ED Physician; Name: ; Notified At: ; Arrived At: Physician: General Surgeon; Name: ; Notified At: ; Arrived At: Physician: Radiology; Name: ; Notified At: ; Arrived At: Physician: Respiratory; Name: ; Notified At: ; Arrived At: Physician: Lab; Name: ; Notified At: ; Arrived At: Historical: - Allergies: 10:56 PENICILLINS; ll1 - PMHx: 10:56 Cellulitis; Diabetes - NIDDM; Hypertension; ll1 - PSHx: 10:56 left leg amputee; ll1 - Immunization history:: Flu vaccine is up to date. - Social history:: Smoking status: Patient reports the use of cigarette tobacco products, smokes one-half pack cigarettes per day. - Immunization history: Last tetanus immunization: unknown. Screenin:38 Abuse screen: Denies threats or abuse. Denies injuries from another. Nutritional ph screening: No deficits noted. Tuberculosis screening: No symptoms or risk factors identified. Fall Risk Fall in past 12 months (25 points). No secondary diagnosis (0 pts). IV access (20 points). Ambulatory Aid- Crutches/Cane/Walker (15 pts). Gait- Weak (10 pts.). Mental Status- Oriented to own ability (0 pts). Total Monahan Fall Scale indicates High Risk Score (45 or more points). Fall prevention measures have been instituted. Side Rails Up X 2 Placed Close to Nursing Station Frequent Obs/Assessments Occuring As available patient and family educated on Fall Prevention Program and Strategies. Primary Survey: 11:30 NO uncontrolled hemorrhage observed. A: The patient is alert. Airway: patent, No ph supplemental oxygen in use on arrival. Oral cavity: clear. Breathing/Chest: Respiratory pattern: regular, Respiratory effort: spontaneous, unlabored, Chest inspection: symmetrical rise and fall of the chest. Circulation: Skin color: pink, Skin temperature: warm, dry. Disability Alert. Exposure/Environment: There is no evidence of uncontrolled external bleeding. Obvious injury(ies) are noted at this time: abrasion to R knee. 14:06 Reassessment Breathing/Chest Respiratory pattern Regular Respiratory effort Spontaneous bp Unlabored. Assessment: 11:30 General: Appears in no apparent distress. comfortable, slender, Behavior is calm, ph cooperative, appropriate for age, Denies fever, feeling ill. Pain: Complains of pain in occipital areaand R knee. Neuro: Level of Consciousness is awake, alert, obeys commands, Oriented to person, place, time, situation, Reports headache occipital area. Cardiovascular: Capillary refill < 3 seconds in bilateral fingers Patient's skin is warm and dry. Respiratory: Airway is patent Respiratory effort is even, unlabored, Respiratory pattern is regular, symmetrical. GI: No signs and/or symptoms were reported involving the gastrointestinal system. Derm: Skin is healthy with good turgor, Skin is pink, warm \T\ dry. Musculoskeletal: Circulation, motion, and sensation intact. Range of motion: intact in all extremities. Injury Description: Abrasion sustained to right knee. 12:53 Reassessment: Patient appears in no apparent distress at this time. Patient and/or ph family updated on plan of care and expected duration. Pain level reassessed. Patient is alert, oriented x 3, equal unlabored respirations, skin warm/dry/pink. Pt resting quietly, eating lunch, tolerating well. 13:53 Reassessment: PT D/C HOME AMBULATORY, DX WITH SUPERFICIAL HEAD INJURY. bp Vital Signs: 10:54 BP 194 / 94; Pulse 69; Resp 18; Temp 97.6; Pulse Ox 100% ; Weight 58.97 kg; Height 5 ll1 ft. 2 in. (157.48 cm); Pain 8/10; 12:53 BP 176 / 87; Pulse 68; Resp 18; Pulse Ox 98% on R/A; ph 13:55 BP 151 / 75 RA (auto/reg); Pulse 75; Resp 20; Pulse Ox 100% on R/A; Pain 7/10; jp3 10:54 Body Mass Index 23.78 (58.97 kg, 157.48 cm) ll1 Bush Coma Score: 11:30 Eye Response: spontaneous(4). Verbal Response: oriented(5). Motor Response: obeys ph commands(6). Total: 15. 12:53 Eye Response: spontaneous(4). Verbal Response: oriented(5). Motor Response: obeys ph commands(6). Total: 15. Trauma Score (Adult): 11:30 Eye Response: spontaneous(1); Verbal Response: oriented(1); Motor Response: obeys ph commands(2); Systolic BP: > 89 mm Hg(4); Respiratory Rate: 10 to 29 per min(4); Bush Score: 15; Trauma Score: 12 12:53 Eye Response: spontaneous(1); Verbal Response: oriented(1); Motor Response: obeys ph commands(2); Systolic BP: > 89 mm Hg(4); Respiratory Rate: 10 to 29 per min(4); Bush Score: 15; Trauma Score: 12 ED Course: 10:49 Patient arrived in ED. mr 10:49 Alfonzo Mera DO is Private Physician. mr 10:56 Triage completed. ll1 10:56 Arm band placed on. ll1 11:04 Gold Sorto MD is Attending Physician. kdr 11:16 Lora Roe, RN is Primary Nurse. ph 11:44 CT Head C Spine In Process Unspecified. EDMS 12:15 environmental monitoring technician on. jp3 12:15 Pillow given. Verbal reassurance given. jp3 12:15 EKG done, by ED staff, reviewed by Gold Sorto MD. jp3 12:35 Initial lab(s) drawn, by nv, sent to lab. Inserted saline lock: 20 gauge in left jp3 antecubital area, using aseptic technique. Blood collected. 12:35 Patient maintains SpO2 saturation greater than 95% on room air. jp3 12:39 Patient has correct armband on for positive identification. Bed in low position. Call ph light in reach. Side rails up X 1. Pulse ox on. NIBP on. Door closed. Noise minimized. Warm blanket given. Diet tray given. 12:53 Thermoregulation: warm blanket given to patient. ph 13:31 Alfonzo Mera DO is Referral Physician. kdr 14:05 No provider procedures requiring assistance completed. IV discontinued. bp Administered Medications: 13:50 Drug: traMADol 50 mg Route: PO; bp 14:04 Follow up: Response: Pain is decreased bp Point of Care Testing: Blood Glucose: 12:38 Blood Glucose: 111 mg/dL; ph Ranges: Intake: 11:30 PO: 0ml; Total: 0ml. ph Output: 11:30 Urine: 250ml (Voided); Total: 250ml. ph Outcome: 13:32 Discharge ordered by . kdr 14:05 Discharged to home ambulatory. bp 14:05 Condition: stable 14:05 Discharge instructions given to patient, Instructed on discharge instructions, follow up and referral plans. Demonstrated understanding of instructions, follow-up care. 14:06 Patient's length of stay was not longer than 2 hours. bp 14:06 Patient left the ED. bp Signatures: Dispatcher [employer] EDMS Gold Sorto MD MD kdr Burnett, Mare fabian Lora Roe, RN RN ph Malcolm Beatty, RN RN bp Juan Antonio James jp3 Bairon Rivera RN RN ll1
--- NOTE | 2020-04-15 13:33 | EDPHYS ---
Physician Documentation [facility] Name: Amaury Matamoros Age: 69 yrs Sex: Male : 1950 Arrival Date: 04/15/2020 Time: 10:49 Bed 20 Private MD: [facility] ED Physician Gold Sorto HPI: 04/16 09:34 This 69 yrs old Male presents to ER via Wheelchair with complaints of Fall kdr Injury, Head Injury-Adult. 09:34 Details of fall: The patient fell from an upright position, while standing. Onset: The kdr symptoms/episode began/occurred suddenly, just prior to arrival. Associated injuries: The patient sustained injury to the head, contusion. Severity of symptoms: At their worst the symptoms were mild, just prior to arrival, in the emergency department the symptoms have improved, mildly. It is unknown whether or not the patient has had similar symptoms in the past. The patient has not recently seen a physician. Historical: - Allergies: 04/15 10:56 PENICILLINS; ll1 - PMHx: 10:56 Cellulitis; Diabetes - NIDDM; Hypertension; ll1 - PSHx: 10:56 left leg amputee; ll1 - Immunization history:: Flu vaccine is up to date. - Social history:: Smoking status: Patient reports the use of cigarette tobacco products, smokes one-half pack cigarettes per day. - Immunization history: Last tetanus immunization: unknown. ROS: 04/16 09:34 Constitutional: Negative for fever, chills, and weight loss, Eyes: Negative for injury, kdr pain, redness, and discharge, Neck: Negative for injury, pain, and swelling, Cardiovascular: Negative for chest pain, palpitations, and edema, Respiratory: Negative for shortness of breath, cough, wheezing, and pleuritic chest pain, Abdomen/GI: Negative for abdominal pain, nausea, vomiting, diarrhea, and constipation, Back: Negative for injury and pain, MS/Extremity: Negative for injury and deformity, Skin: Negative for injury, rash, and discoloration, Neuro: Negative for headache, weakness, numbness, tingling, and seizure activity. Psych: Negative for depression, anxiety, suicide ideation, homicidal ideation, and hallucinations, Allergy/Immunology: Negative for hives, rash, and allergies, Endocrine: Negative for neck swelling, polydipsia, polyuria, polyphagia, and marked weight changes, Hematologic/Lymphatic: Negative for swollen nodes, abnormal bleeding, and unusual bruising. Exam: 04/15 12:42 ECG was reviewed by the Attending Physician. kdr 04/16 09:34 Constitutional: This is a well developed, well nourished patient who is awake, alert, kdr and in no acute distress. Head/Face: Normocephalic, atraumatic. Eyes: Pupils equal round and reactive to light, extra-ocular motions intact. Lids and lashes normal. Conjunctiva and sclera are non-icteric and not injected. Cornea within normal limits. Periorbital areas with no swelling, redness, or edema. Neck: Trachea midline, no thyromegaly or masses palpated, and no cervical lymphadenopathy. Supple, full range of motion without nuchal rigidity, or vertebral point tenderness. No Meningismus. Chest/axilla: Normal chest wall appearance and motion. Nontender with no deformity. No lesions are appreciated. Cardiovascular: Regular rate and rhythm with a normal S1 and S2. No gallops, murmurs, or rubs. Normal PMI, no JVD. No pulse deficits. Respiratory: Lungs have equal breath sounds bilaterally, clear to auscultation and percussion. No rales, rhonchi or wheezes noted. No increased work of breathing, no retractions or nasal flaring. Abdomen/GI: Soft, non-tender, with normal bowel sounds. No distension or tympany. No guarding or rebound. No evidence of tenderness throughout. Back: No spinal tenderness. No costovertebral tenderness. Full range of motion. Skin: Warm, dry with normal turgor. Normal color with no rashes, no lesions, and no evidence of cellulitis. MS/ Extremity: Pulses equal, no cyanosis. Neurovascular intact. Full, normal range of motion. Neuro: Awake and alert, GCS 15, oriented to person, place, time, and situation. Cranial nerves II-XII grossly intact. Motor strength 5/5 in all extremities. Sensory grossly intact. Cerebellar exam normal. Normal gait. Psych: Awake, alert, with orientation to person, place and time. Behavior, mood, and affect are within normal limits. Vital Signs: 04/15 10:54 BP 194 / 94; Pulse 69; Resp 18; Temp 97.6; Pulse Ox 100% ; Weight 58.97 kg; Height 5 ll1 ft. 2 in. (157.48 cm); Pain 8/10; 12:53 BP 176 / 87; Pulse 68; Resp 18; Pulse Ox 98% on R/A; ph 13:55 BP 151 / 75 RA (auto/reg); Pulse 75; Resp 20; Pulse Ox 100% on R/A; Pain 7/10; jp3 10:54 Body Mass Index 23.78 (58.97 kg, 157.48 cm) ll1 Siobhan Coma Score: 11:30 Eye Response: spontaneous(4). Verbal Response: oriented(5). Motor Response: obeys ph commands(6). Total: 15. 12:53 Eye Response: spontaneous(4). Verbal Response: oriented(5). Motor Response: obeys ph commands(6). Total: 15. Trauma Score (Adult): 11:30 Eye Response: spontaneous(1); Verbal Response: oriented(1); Motor Response: obeys ph commands(2); Systolic BP: > 89 mm Hg(4); Respiratory Rate: 10 to 29 per min(4); Siobhan Score: 15; Trauma Score: 12 12:53 Eye Response: spontaneous(1); Verbal Response: oriented(1); Motor Response: obeys ph commands(2); Systolic BP: > 89 mm Hg(4); Respiratory Rate: 10 to 29 per min(4); Beaufort Score: 15; Trauma Score: 12 MDM: 12:02 ED course: Verbal CT report received. negative for acute findings on head and c-spine. kb 13:32 Patient medically screened. kdr 04/16 09:34 Data reviewed: vital signs, nurses notes, lab test result(s), radiologic studies. kdr Counseling: I had a detailed discussion with the patient and/or guardian regarding: the historical points, exam findings, and any diagnostic results supporting the discharge/admit diagnosis, lab results, radiology results, the need for outpatient follow up. 04/15 12:05 Order name: CBC with Diff; Complete Time: 13:29 kdr 04/15 12:05 Order name: Chem 7; Complete Time: 13:29 kdr 04/15 11:04 Order name: CT Head C Spine snw 04/15 11:04 Order name: EKG; Complete Time: 11:04 snw 10/01 12:43 Order name: Urine Dipstick--Ancillary (enter results); Complete Time: 13:38 mt 04/15 11:04 Order name: FSBS; Complete Time: 12:36 snw 04/15 11:04 Order name: EKG - Nurse/Tech; Complete Time: 12:27 snw 04/15 12:05 Order name: Urine Dipstick-Ancillary (obtain specimen); Complete Time: 12:36 kdr 04/15 12:27 Order name: Diet Ada 1800 Yaw; Complete Time: 12:27 ph EC/01 12:42 Rate is 69 beats/min. Rhythm is regular, Normal Sinus Rhythm with No ectopy. QRS [place] kdr is Normal. OR interval is normal. QRS interval is normal. QT interval is normal. Clinical impression: Normal ECG. Administered Medications: 13:50 Drug: traMADol 50 mg Route: PO; bp 14:04 Follow up: Response: Pain is decreased bp Point of Care Testing: Blood Glucose: 12:38 Blood Glucose: 111 mg/dL; ph Ranges: Critical Glucose Levels:Adult <50 mg/dl or >400 mg/dl <40 mg/dl or >180 mg/dl Disposition: 13:29 Co-signature as Attending Physician, Gold Sorto MD. kdr 13:30 Co-signature as Attending Physician, Gold Sorto MD. kdr 04/16 09:32 Co-signature as Attending Physician, Gold Sorto MD I agree with the assessment and kdr plan of care. Disposition: 04/15/20 13:32 Discharged to Home. Impression: Other slipping, tripping and stumbling and falls, Superficial injury of head, Anemia, unspecified. - Condition is Stable. - Discharge Instructions: Anemia, Nonspecific, Head Injury, Adult, [id number]. - Medication Reconciliation Form, Thank You Letter form. - Follow up: Alfonzo Mera, DO; When: 2 - 3 days; Reason: If symptoms return, Further diagnostic work-up, Recheck today's complaints, Continuance of care, Re-evaluation by your physician. - Problem is new. - Symptoms are resolved. Signatures: Dispatcher [employer] EDSC Lorraine Wilson FNP-C FNP-Ckb Rittger, Kevin, MD MD [facility] Melissa Henson FNP-C FNP-Csnw Malcolm Beatty, RN RN bp Bairon Rivera, RN RN ll1 Corrections: (The following items were deleted from the chart) 04/15 14:06 13:32 04/15/2020 13:32 Discharged to Home. Impression: Other slipping, tripping and bp stumbling and falls; Superficial injury of head; Anemia, unspecified. Condition is Stable. Forms are Medication Reconciliation Form, Thank You Letter, Antibiotic Education, Prescription Opioid Use. Follow up: Alfonzo Mera; When: 2 - 3 days; Reason: If symptoms return, Further diagnostic work-up, Recheck today's complaints, Continuance of care, Re-evaluation by your physician. Problem is new. Symptoms are resolved. kdr
[2020-04-15 13:37] LABS: Urine Blood 1+ (NEG); Urine Glucose NEGATIVE (NEG); Urine Protein 3+ (NEG); Urine Specific Gravity 1.025 (1.005-1.030)
[2020-04-15] MEDS ORDERED: TRAMADOL HCL 50 MG TAB ONE (14:12)
[2020-04-15 14:24] VITALS: TEMP 97.6
[2020-04-15 14:26] VITALS: BP 151/75; O2SAT 100
--- NOTE | 2020-04-16 11:41 | EKG ---
Test Date: 2020-04-15 Test Time: 12:18:50 Fitter Mechanic: MEG MEASUREMENT RESULTS: Intervals: Rate: 69 IL: 130 QRSD: 100 QT: 406 QTc: 435 Edmonson: P: 21 IL: 130 QRS: 0 T: 17 INTERPRETIVE STATEMENTS: Normal sinus rhythm Normal ECG Compared to ECG 02/03/2020 19:24:09 ST (T wave) deviation no longer present Electronically Signed On 04-16-20 11:37:43 CDT by Noah Keyes
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
== END 2020-04-15 14:06 | disposition home or self-care (01) ==
LOC: ER 10:44
DX: S00.90XA Unspecified superficial injury of unspecified part of head, initial encounter (principal); D64.9 Anemia, unspecified; I10 Essential (primary) hypertension; Z88.0 Allergy status to penicillin; F17.210 Nicotine dependence, cigarettes, uncomplicated; W01.0XXA Fall on same level from slipping, tripping and stumbling without subsequent striking against object, initial encounter; Y93.9 Activity, unspecified; Y92.9 Unspecified place or not applicable
CPT/HCPCS: 36415; 70450; 72125; 80048; 81003; 82947; 85025; 93005; 99285

== ENCOUNTER 2020-06-07 13:41 | Emergency (ER) | payer OTHER ==
--- OUTSIDE RECORDS SUMMARY | 2020-06-07 14:23 | XMS REPORT | Continuity of Care Document ---
:1950 Author Organization [facility] t Address [address] [place] [address] Care Team Providers Name Role Phone Unavailable Unavailable Unavailable Problems This patient has no known problems. Allergies, Adverse Reactions, Alerts Allergy Allergy Status Severity Reaction(s) Onset Inactive Treating Comm ents Source Name Type Date Date Clinician Penicill Adverse Active Info Not [facility] Medications Ordered Filled Start Stop Current Ordering Indication Dosage Frequency Signature Comments Components Source Medication Medication Date Date Medication? Clinician (SIG) Name Name Lisinopril Lisinopril Yes Alfonzo [address] [facility] Hydrochloro Hydrochloro Yes Alfonzo [address] [facility] thiazide thiazide Emra in the [facility] Pantoprazol Pantoprazol Yes Alfonzo [address] [facility] e Sodium e Sodium Mera [facility] Metoprolol Metoprolol Yes Alfonzo [address] [facility] Tartrate Tartrate Mera with food [facility] Ferrous Ferrous Yes Alfonzo [address] [facility] Sulfate Sulfate Mera [facility] Amlodipine Amlodipine Yes Alfonzo [address] [facility] Besylate Besylate Mera [facility] Gabapentin Gabapentin Yes Alfonzo [address] [facility] Mera [facility] Metformin Metformin Yes Alfonzo [address] [facility] HCl HCl Mera with a [facility] Procedures This patient has no known procedures. Encounters Start End Encounter Admission Attending Care Care Encounter Source Date/Time Date/Time Type Type Clinicians Facility Department ID 2020-06-03 2020-06-03 [id number] 2020-05-25 2020-05-25 [facility] [id number] [facility] 2020-05-13 2020-05-13 [facility] [id number] [facility] 2020-04-29 2020-04-29 [facility] [id number] [facility] 2020-04-15 2020-04-15 [facility] [id number] [facility] 2020-04-15 2020-04-15 [facility] [id number] [facility] 2020-04-07 2020-04-07 [facility] [id number] [facility] 2020-03-26 2020-03-26 [facility] [id number] [facility] 09:10:00 09:10:00 t IQR Consulting Skipo TopVisible [facility] Medicine l Medicine Outpati ent Clinics 2019-09-21 2019-09-21 [facility] [id number] [facility] 21:47:00 21:47:00 t Zazueta Zazueta Friendly Wager App Laurel wizboo [facility] Medicine l Medicine Outpati ent Clinics 2019-09-19 2019-09-19 [facility] [id number] [address] 13:30:00 13:30:[address] [facility] Friendly Wager App tinyclues [facility] Medicine l Medicine Outpati ent Clinics 2019-09-10 2019-09-10 [facility] [id number] 10:15:00 10:15:00 [facility] Clinics 2019-06-20 2019-06-20 Outpatient Giana Huerta [id number] [facility] [address] 13:20:00 13:20:00 [facility] Clinics 2019-03-21 2019-03-21 Outpatient Giana Huerta [id number] [facility] [address] 11:20:00 11:20:00 [facility] ent Clinics Results This patient has no known results.
--- OUTSIDE RECORDS SUMMARY | 2020-06-07 14:23 | XMS REPORT ---
:1950 Author Organization eClinicalWorks Care Team Providers Name Role Phone MeraRumah Provider Role Unavailable Allergies, Adverse Reactions, Alerts Substance Reaction Event Type Penicillamine Info Not Available Drug Allergy Problems Problem Type Condition Code Onset Dates Condition Statu s Assessment Tobacco use disorder F17.200 Active Problem Heavy sensation of lower extremity R29.898 Active Assessment Skin cancer C44.90 Active Problem Anemia, unspecified type D64.9 Act ailyn Assessment Right leg paresthesias R20.2 Activ e Problem Uncontrolled type 2 diabetes E11.65 Active mellitus with hyperglycemia Problem Decreased sensation of foot R20.8 Active Problem Abnormal renal function test R94.4 Active Problem Right leg paresthesias R20.2 Activ e Problem Skin cancer C44.90 Active Assessment History of left below knee Z89.512 A ctive amputation Assessment Anemia, unspecified type D64.9 Act ailyn Problem Tobacco use disorder F17.200 Active Assessment Decreased sensation of foot R20.8 Active Problem Paresthesias R20.2 Active Problem Blurry vision, bilateral H53.8 Act ailyn Problem Onychomycosis B35.1 Active Problem Skin lesions L98.9 Active Assessment Uncontrolled type 2 diabetes E11.65 Active mellitus with hyperglycemia Assessment 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 Assessment Essential hypertension I10 Activ e Problem History of left below knee Z89.512 A ctive amputation Problem Right foot pain M79.671 Active Problem Diabetes E11.9 Active Problem Essential hypertension I10 Activ e Medications Medication Code Code Instructions Start End Status Dosage System Date Date Amlodipine Besylate ND 24189694696 2.5 MG Orally Ac tive 1 tablet Once a day Hydrochlorothiazide NDC 89302468018 25 MG Orally Act ailyn 1 tablet Once a day in the morning Pantoprazole Sodium NDC 18913126955 40 MG Orally Act ailyn 1 tablet Once daily Lisinopril ND 13626247147 10 MG Orally Active 1 ta blet Once a day Ferrous Sulfate ND 00590361565 325 (65 Fe) MG Activ e 1 tablet Orally Twice daily Metformin HCl ND 17184066077 1000 MG Orally Active 1 tablet Twice a day with a meal Gabapentin ND 03837236720 300 MG Orally Active 1 c apsule Three times a day Metoprolol Tartrate ND 16178762686 25 MG Orally Act ailyn 1 tablet Twice a day with food Results Name Result Date Reference Range Unit Abnormali ty Flag Foot Right 3 View Summary Purpose eClinicalWorks Submission
--- OUTSIDE RECORDS SUMMARY | 2020-06-07 14:23 | XMS REPORT ---
:[address] [facility] Address [address] [place], [address] [place] [address] Care Team Providers Name Role Phone Mera Unavailable [phone] PROBLEMS Type Condition ICD9-CM [id number] Onset Condition SNOMED Code Notes Code Code Dates Status Problem Diabetes E11.9 Active 399492191 Problem History of left Z89.512 Active 961680335603738 below knee amputation Problem Essential I10 Active 38669798 hypertension Problem Heavy sensation R29.898 Active 569144228 Involv ing of lower the right extremity foot. Problem Right foot pain M79.671 Active 085117072710315 Problem Uncontrolled type E11.65 Active 616688754 2 diabetes mellitus with hyperglycemia Problem Anemia, D64.9 Active 033208026 unspecified type Problem Blurry vision, H53.8 Active 294544001 bilateral Problem Skin cancer C44.90 Active 290828101 Problem Paresthesias R20.2 Active 87271908 Involving right leg & right foot. Problem Thrombocytopenia D69.6 Active 840882711 Problem Decreased R20.8 Active 072378122 sensation of foot Problem CKD (chronic N18.3 Active 236224616 kidney disease) stage 3, GFR 30-59 ml/min Problem Abnormal renal R94.4 Active 922356136 Likely function test CKD. Problem Right leg R20.2 Active 16810233274729320 paresthesias Problem Skin lesions L98.9 Active 88989732 Bruise-lik e skin lesions mostly on BUEs. Problem Onychomycosis B35.1 Active 196590012 Toenails of right foot. Problem Tobacco use F17.200 Active 030179732 disorder ALLERGIES Allergen (clinical drug Drug/Non Drug Allergy Reaction Allergy Type Onset Date Status ingredient) documented on EMR penicillamine Penicillamine([facility] Unknown Drug Allergy Ac tive Code:[address]-75) ENCOUNTERS from 1950 to 2020-06-03 Encounter Location Date Provider Diagnosis [facility], [facility] [address], [address] ; [place] [address] 2 diabetes tye litus with hyperglycemia E 11.65 ; Non-healing wou nd of amputation stum p T87.89 ; Anemia, unspe cified type D64.9 ; De creased sensation of fo ot R20.8 ; Right leg par esthesias R20.2 ; Skin ca ncer C44.90 ; Tobacc o use disorder F17.20 0 ; CKD (chronic kidney disease) stage 3, GFR 30 -59 ml/min N18.3 ; Thrombocytopeni a D69.6 ; History of left below knee amputation Z89.512 and Proteinuria , unspecified typ e R80.9 IMMUNIZATIONS Vaccine Route Administration Date Status FluAD IM Intramuscular Apr 29, 2020 Administered FluAD IM Intramuscular Apr 15, 2020 Administered SOCIAL HISTORY Tobacco Use: Social History Observation Description Date Details (start date - stop date) Current Smoker Sex Assigned At : Social History Observation Description Sex Assigned At Unknown Alcohol Screen Question Answer Notes Did you have a drink containing alcohol in Yes the past year? Points 2 Interpretation Negative How often did you have a drink containing Two to four times a month (2 points) alcohol in the past year? Tobacco Use/Smoking Question Answer Notes Are you a current smoker Sexual History Question Answer Notes Had sex in the past 12 months (vaginal, oral, or anal)? No REASON FOR REFERRAL No Information VITAL SIGNS Height 63.50 in May, Weight 122.2 lbs May, Temperature 97.8 degrees Fahrenheit May, BMI 21.3 kg/m2 May, Oximetry 98 % May, Respiratory Rate 16 /min May, Blood pressure systolic 150 mm Hg May, Blood pressure diastolic 72 mm Hg May, MEDICATIONS Medication SIG (Take, Route, Notes Start Date End Date Status Frequency, Duration) Metoprolol Tartrate 25 MG 1 tablet with food Active Orally Twice a day for 90 days Hydrochlorothiazide 25 MG 1 tablet in the Not-Taking morning Orally Once a day for 90 days Ferrous Sulfate 325 (65 Fe) 1 tablet Orally Not-Taking MG Twice daily for 90 days Amlodipine Besylate 2.5 MG 1 tablet Orally Active Once a day for 90 days Gabapentin 300 MG 1 capsule Orally N ot-Taking Three times a day for 90 days Lisinopril 20 MG 1 tablet Orally Act ailyn Once a day for 90 days Metformin HCl 1000 MG 1 tablet with a Active meal Orally Twice a day for 90 Pantoprazole Sodium 40 MG 1 tablet Orally Active Once daily PROCEDURES No Information RESULTS No Results REASON FOR VISIT 3 week f/u. Blood pressure. MEDICAL (GENERAL) HISTORY Type Description Date Medical History Uncontrolled type 2 diabetes mellitus wi th hyperglycemia Medical History Essential hypertension Medical History Anemia, unspecified type Medical History History of left below knee amputation Medical History Right foot pain Medical History Heavy sensation of lower extremity Medical History Abnormal renal function test Surgical History Buttock Surgery Surgical History Left Leg Amputated--BKA Goals Section No Information Health Concerns No Information MEDICAL EQUIPMENT No Information MENTAL STATUS No Information FUNCTIONAL STATUS No Information ASSESSMENTS Encounter Date Diagnosis Assessment Notes Treatment Notes Treatm ent Clinical Notes May, Essential hypertension . Intermittent (ICD-10 - I10) control. INCREASED Lisinopril 20 mg + Cont metoprolol and amlodipine with close follow-up in 3 weeks. Rx given for BP onitor, pharmacy did not supply. Will call insurnace. Education given. Bring log from home. Will make adjustments., DASH Diet discussed. Instructed to measure BP at home and bring in log to f/u appt. Instructions and logs given. Education given. HTN Education This is a condition that puts at risk for heart attack, stroke, and kidney disease. Lifestyle modification, low fat/low salt diet, exercise, low alcohol intake and medication is utilized to help control your BP. Untreated HTN increases the strain on the heart and arteries, eventually causing organ damage.Normal BP is less than 140/90. High BP is greater than 140/90. If your BP is not controlled, call your doctor. Medication may need to be adjusted and/or added. Compliance with medication is vital. If you have chest pain, shortness of breath, severe nausea/vomiting, fatigue, and other symptoms, you will need to contact your doctor or go to the ER immediately to address. May, Uncontrolled type 2 Education given. diabetes mellitus with Continue current hyperglycemia (ICD-10 regimen. Diabetes - E11.65) Education Diabetes is a disorder that disrupts the way your body uses glucose (sugar). It is a chronic medication condition that requires regular monitoring and treatment throughout your life. Treatment includes: lifestyle modification, self-care measures, and medication. Fortunately, these treatments can keep the blood sugar levels close to normal and minimize the risk of developing complications. The primary blood test to measure the progress of diabetes is the Hemoglobin A1c. Normal levels is less than 7.0 but less than 6.5 is considered excellent control. Fasting blood sugars should be in the range of 80-120 while random blood sugars should range below 200 especially after meals. Carbohydrate (sugar) intake for diabetics should be below 45 grams per meal and 15 grams per snack. Diabetic preventive care is vital to prevent complications, so it is important to have yearly diabetic eye and foot exams with specialists. If your diabetes is not controlled, then contact your doctor to further address.Medication may need to be adjusted and/or added. May, Non-healing wound of Managed by wound amputation stump care for further (ICD-10 - T87.89) evaluation and management. May, Anemia, unspecified Seen by Hem. type (ICD-10 - D64.9) Encouraged to make appt with GI. Discussed differential diagnosis. Education given. May, Decreased sensation of Negative ARterial foot (ICD-10 - R20.8) Doppler. No relief with gabapentin. Seen by neurologist. Concern for neuropathy at this time. May, Right leg paresthesias . Will start (ICD-10 - R20.2) work-up. Education given May, Skin cancer (ICD-10 - . Managed by C44.90) dermatology May, Tobacco use disorder Strongly encourged (ICD-10 - F17.200) on cessation. Education given. Counseling given. Pick a quit date. , Education, counseling done at this visit, offered web sites and medicine to help. We did discussed not only the CAD risk also the risk for multiples cancers, peripheral neuropathy, etc. www.quit.com gives you tip[s and tricks, quit smoking chelist, download my quit chitra and read quit smoking benefits too. More than 3 minutes were spent with patient. Will follow-up as well. May, CKD (chronic kidney Monitored. disease) stage 3, GFR Education given. 30-59 ml/min (ICD-10 - Will refer to N18.3) nephrology due to proteinuria. May, Thrombocytopenia . Asymptomatic. (ICD-10 - D69.6) Education given. Referral to hematology. May, History of left below knee amputation (ICD-10 - Z89.512) May, Proteinuria, . Due to level unspecified type will refer to (ICD-10 - R80.9) nephrology. Encouraged to make appt. May, Other -- Medication reviewed and updated. -- Dietary and Lifestyle modifications addressed regarding diet, exercise and weight management. -- Treatment options, risks and benefits, side effects reviewed in detail. -- Advised on signs/symptoms to monitor and when to call clinic and/or visit the nearest ER. Patient verbalized understanding and agreeable with plan. PLAN OF TREATMENT Medication Medication Name Sig Start Date Stop Date Metoprolol Tartrate 25 MG 1 tablet with food Orally Twice a day for 90 days Lisinopril 20 MG 1 tablet Orally Once a day for 90 days Amlodipine Besylate 2.5 MG 1 tablet Orally Once a day for 90 days Treatment Notes Assessment Notes Clinical Notes Essential hypertension . Intermittent control. INCREASED Lisinopril 20 mg + Cont metoprolol and amlodipine with close follow-up in 3 weeks. Rx given for BP onitor, pharmacy did not supply. Will call insurnace. Education given. Bring log from home. Will make adjustments., DASH Diet discussed. Instructed to measure BP at home and bring in log to f/u appt. Instructions and logs given. Education given. HTN Education This is a condition that puts at risk for heart attack, stroke, and kidney disease. Lifestyle modification, low fat/low salt diet, exercise, low alcohol intake and medication is utilized to help control your BP. Untreated HTN increases the strain on the heart and arteries, eventually causing organ damage.Normal BP is less than 140/90. High BP is greater than 140/90. If your BP is not controlled, call your doctor. Medication may need to be adjusted and/or added. Compliance with medication is vital. If you have chest pain, shortness of breath, severe nausea/vomiting, fatigue, and other symptoms, you will need to contact your doctor or go to the ER immediately to address. Uncontrolled type 2 diabetes mellitus Education given. Cont inue with hyperglycemia current regimen. Diabetes Education Diabetes is a disorder that disrupts the way your body uses glucose (sugar). It is a chronic medication condition that requires regular monitoring and treatment throughout your life. Treatment includes: lifestyle modification, self-care measures, and medication. Fortunately, these treatments can keep the blood sugar levels close to normal and minimize the risk of developing complications. The primary blood test to measure the progress of diabetes is the Hemoglobin A1c. Normal levels is less than 7.0 but less than 6.5 is considered excellent control. Fasting blood sugars should be in the range of 80-120 while random blood sugars should range below 200 especially after meals. Carbohydrate (sugar) intake for diabetics should be below 45 grams per meal and 15 grams per snack. Diabetic preventive care is vital to prevent complications, so it is important to have yearly diabetic eye and foot exams with specialists. If your diabetes is not controlled, then contact your doctor to further address.Medication may need to be adjusted and/or added. Non-healing wound of amputation stump Managed by wound care for further evaluation and management. Anemia, unspecified type Seen by Hem. Encouraged to make appt with GI. Discussed differential diagnosis. Education given. Decreased sensation of foot Negative ARterial Doppler. No relief with gabapentin. Seen by neurologist. Concern for neuropathy at this time. Right leg paresthesias . Will start work-up. Education given Skin cancer . Managed by dermatology Tobacco use disorder Strongly encourged on cessation. Education given. Counseling given. Pick a quit date. , Education, counseling done at this visit, offered web sites and medicine to help. We did discussed not only the CAD risk also the risk for multiples cancers, peripheral neuropathy, etc. www.quit.[employer] gives you tip[s and tricks, quit smoking chelist, download my quit chitra and read quit smoking benefits too. More than 3 minutes were spent with patient. Will follow-up as well. CKD (chronic kidney disease) stage 3, Monitored. Education given. GFR 30-59 ml/min Will refer to nephrology due to proteinuria. Thrombocytopenia . Asymptomatic. Education given. Referral to hematology. Proteinuria, unspecified type . Due to level will refer to nephrology. Encouraged to make appt. Next Appt Details 3 Weeks HTN Reason: Provider Name:Alfonzo Mera, 2020-06-24 1 1:20:00 AM, [address], [place], [address], Provider Name:Alfonzo Mera, 2020-07-19 0 9:15:00 AM, [address], [address], [place], [address], Provider Name:Alfonzo Mera, 2020-07-23 0 8:40:00 AM, [address], [address], [place], [address], Insurance Providers Payer Name Payer Payer Insured Name Patient Coverage Covera End Address Phone Relationship to Start Date Nic e Insured [employer] [address] [address] [phone] [place] [address] [facility] [id number]
--- NOTE | 2020-06-07 15:58 | EDPHYS ---
Physician Documentation [facility] Name: Amaury Matamoros Age: 69 yrs Sex: Male : 1950 Arrival Date: 06/07/2020 Time: 13:43 Bed 25 Private MD: Alfonzo Mera ED Physician Wally Miles HPI: 06/07 14:39 This 69 yrs old Male presents to ER via Ambulatory with complaints of Wound marj Check. 14:39 Patient presents to ED for recheck of: cellulitis, pressure wound. The affected area is marj on the left leg. Previous treatment: none. Progress: The patient reports no change in. The patient has experienced similar episodes in the past, several times. Historical: - Allergies: 14:07 PENICILLINS; zb - Home Meds: 14:07 metformin Oral [Active]; zb - PMHx: 14:07 Cellulitis; Diabetes - NIDDM; Hypertension; zb - PSHx: 14:07 BKA; zb - Immunization history:: Adult Immunizations up to date. - Social history:: Smoking status: Patient reports the use of cigarette tobacco products, denies chronic smoking, but will smoke occasionally. ROS: 14:40 Constitutional: Negative for fever, chills, and weight loss, Eyes: Negative for injury, marj pain, redness, and discharge, ENT: Negative for injury, pain, and discharge, Neck: Negative for injury, pain, and swelling, Cardiovascular: Negative for chest pain, palpitations, and edema, Respiratory: Negative for shortness of breath, cough, wheezing, and pleuritic chest pain, Abdomen/GI: Negative for abdominal pain, nausea, vomiting, diarrhea, and constipation, Back: Negative for injury and pain, : Negative for injury, bleeding, discharge, and swelling, Neuro: Negative for headache, weakness, numbness, tingling, and seizure, Psych: Negative for depression, anxiety, suicide ideation, homicidal ideation, and hallucinations, Allergy/Immunology: Negative for hives, rash, and allergies, Endocrine: Negative for neck swelling, polydipsia, polyuria, polyphagia, and marked weight changes, Hematologic/Lymphatic: Negative for swollen nodes, abnormal bleeding, and unusual bruising. 14:40 MS/extremity: Positive for pain, swelling, tenderness, of the lateral aspect of left knee. Exam: 14:40 Constitutional: This is a well developed, well nourished patient who is awake, alert, marj and in no acute distress. Head/Face: Normocephalic, atraumatic. Eyes: Pupils equal round and reactive to light, extra-ocular motions intact. Lids and lashes normal. Conjunctiva and sclera are non-icteric and not injected. Cornea within normal limits. Periorbital areas with no swelling, redness, or edema. ENT: Nares patent. No nasal discharge, no septal abnormalities noted. Tympanic membranes are normal and external auditory canals are clear. Oropharynx with no redness, swelling, or masses, exudates, or evidence of obstruction, uvula midline. Mucous membranes moist. Neck: Trachea midline, no thyromegaly or masses palpated, and no cervical lymphadenopathy. Supple, full range of motion without nuchal rigidity, or vertebral point tenderness. No Meningismus. Chest/axilla: Normal chest wall appearance and motion. Nontender with no deformity. No lesions are appreciated. Cardiovascular: Regular rate and rhythm with a normal S1 and S2. No gallops, murmurs, or rubs. Normal PMI, no JVD. No pulse deficits. Respiratory: Lungs have equal breath sounds bilaterally, clear to auscultation and percussion. No rales, rhonchi or wheezes noted. No increased work of breathing, no retractions or nasal flaring. Abdomen/GI: Soft, non-tender, with normal bowel sounds. No distension or tympany. No guarding or rebound. No evidence of tenderness throughout. Back: No spinal tenderness. No costovertebral tenderness. Full range of motion. Male : Normal genitalia with no discharge or lesions. Neuro: Awake and alert, GCS 15, oriented to person, place, time, and situation. Cranial nerves II-XII grossly intact. Motor strength 5/5 in all extremities. Sensory grossly intact. Cerebellar exam normal. Normal gait. Psych: Awake, alert, with orientation to person, place and time. Behavior, mood, and affect are within normal limits. 14:40 Skin: induration, that is mild is noted, injury, pressure wound, left lower proximal fibula prominence. Vital Signs: 13:57 BP 150 / 96; Pulse 60; Resp 16; Temp 97.6(O); Pulse Ox 98% on R/A; Weight 58.97 kg; zb Height 5 ft. 2 in. (157.48 cm); Pain 8/10; 14:55 BP 176 / 87; Pulse 68; Resp 14; Pulse Ox 100% on R/A; zb 15:30 BP 178 / 90; Pulse 65; Resp 18 S; Pulse Ox 100% on R/A; jd3 16:33 BP 172 / 100; Pulse 73; Resp 16; Pulse Ox 95% on R/A; zb 13:57 Body Mass Index 23.78 (58.97 kg, 157.48 cm) zb MDM: 14:09 Patient medically screened. [facility] 14:43 Differential diagnosis: cellulitis, abscess, cellulitis. Data reviewed: vital signs, [facility] nurses notes. Data interpreted: nurse monitoring: rate is 60 beats/min, rhythm is regular, Pulse oximetry: on room air is 98 %. Test interpretation: by ED physician or midlevel provider:. Counseling: I had a detailed discussion with the patient and/or guardian regarding: the historical points, exam findings, and any diagnostic results supporting the discharge/admit diagnosis, the need for outpatient follow up, for definitive care, a general surgeon. 06/07 14:44 Order name: [facility]; Complete Time: 15:50 [facility] 06/07 15:28 Order name: Dressing - Wound: saline guaze; Complete Time: 15:39 [facility] Administered Medications: 16:00 Drug: Woodruff (7.5 mg-325 mg) 2 tabs Route: PO; zb 16:10 Follow up: Response: No adverse reaction zb Disposition: 06/07/20 15:57 Discharged to Home. Impression: Pressure ulcer - stage 2, Type 2 diabetes mellitus. - Condition is Stable. - Discharge Instructions: Pressure Injury. - Prescriptions for Tylenol- Codeine #3 300-30 mg Oral Tablet - take 1 tablet by ORAL route every 4 hours As needed; 24 tablet. - Medication Reconciliation Form, Thank You Letter, Antibiotic Education, Prescription Opioid Use form. - Follow up: Alfonzo Mera; When: 2 - 3 days; Reason: Recheck today's complaints, Continuance of care, Re-evaluation by your physician. Follow up: Elmo Aldridge; When: 2 - 3 days; Reason: Recheck today's complaints, Continuance of care, Re-evaluation by your physician. - Problem is new. - Symptoms have improved. Signatures: Dispatcher [employer] EDWally Crawley MD MD cha Brown, [place], RN RN zb Corrections: (The following items were deleted from the chart) 15:58 15:57 06/07/2020 15:57 Discharged to Home. Impression: Pressure ulcer - stage 2. [facility] Condition is Stable. Discharge Instructions: Pressure Injury. Prescriptions for Tylenol-Codeine #3 300-30 mg Oral Tablet - take 1 tablet by ORAL route every 4 hours As needed; 24 tablet, Santyl 250 unit/gram Topical ointment - apply 1 application by TOPICAL route once daily; 45 gram. and Forms are Medication Reconciliation Form, Thank You Letter, Antibiotic Education, Prescription Opioid Use. Follow up: Alfonzo Mera; When: 2 - 3 days; Reason: Recheck today's complaints, Continuance of care, Re-evaluation by your physician. Follow up: Elmo Aldridge; When: 2 - 3 days; Reason: Recheck today's complaints, Continuance of care, Re-evaluation by your physician. Problem is new. Symptoms have improved. [facility] 16:34 15:58 06/07/2020 15:57 Discharged to Home. Impression: Pressure ulcer - stage 2; Type 2 zb diabetes mellitus. Condition is Stable. Discharge Instructions: Pressure Injury. Prescriptions for Tylenol-Codeine #3 300-30 mg Oral Tablet - take 1 tablet by ORAL route every 4 hours As needed; 24 tablet, Santyl 250 unit/gram Topical ointment - apply 1 application by TOPICAL route once daily; 45 gram. and Forms are Medication Reconciliation Form, Thank You Letter, Antibiotic Education, Prescription Opioid Use. Follow up: Alfonzo Mera; When: 2 - 3 days; Reason: Recheck today's complaints, Continuance of care, Re-evaluation by your physician. Follow up: Elmo Aldridge; When: 2 - 3 days; Reason: Recheck today's complaints, Continuance of care, Re-evaluation by your physician. Problem is new. Symptoms have improved. marj
--- NOTE | 2020-06-07 15:58 | ER ---
Nurse's Notes [facility] Name: Amaury Matamoros Age: 69 yrs Sex: Male : 1950 Arrival Date: 06/07/2020 Time: 13:43 Bed 25 Private MD: Alfonzo Mera Diagnosis: Pressure ulcer-stage 2;Type 2 diabetes mellitus Presentation: 06/07 13:57 Chief complaint: Patient states: I have had this wound of my left amputation nub for zb the past four day. I am a diabetic and I think it is infected". Coronavirus screen: At this time, the client does not indicate any symptoms associated with coronavirus-19. Ebola Screen: Patient negative for fever greater than or equal to 101.5 degrees Fahrenheit, and additional compatible Ebola Virus Disease symptoms. Initial Sepsis Screen: Does the patient meet any 2 criteria? No. Patient's initial sepsis screen is negative. Does the patient have a suspected source of infection? No. Patient's initial sepsis screen is negative. Risk Assessment: Do you want to hurt yourself or someone else? Patient reports no desire to harm self or others. Onset of symptoms was June 04, 2020. 13:57 Method Of Arrival: Ambulatory zb 13:57 Acuity: ALEJANDRA 3 zb Triage Assessment: 13:50 General: Appears in no apparent distress. comfortable, Behavior is calm, cooperative, zb appropriate for age. EENT: No signs and/or symptoms were reported regarding the EENT system. Neuro: Level of Consciousness is awake, alert, obeys commands, Oriented to person, place, time, situation. Cardiovascular: Denies chest pain, shortness of breath, Capillary refill < 3 seconds in bilateral fingers. Respiratory: Airway is patent Respiratory effort is even, unlabored. GI: Abdomen is flat, non-distended, Bowel sounds present X 4 quads. : No signs and/or symptoms were reported regarding the genitourinary system. Derm: Skin is healthy with good turgor, Skin is pink, warm \\T\\ dry. Derm: Abscess located on left franks is quarter sized, has no drainage, is red, is raised. Musculoskeletal: Amputation of BKA. 13:50 Pain: Complains of pain in left franks area Pain radiates to left thigh area Pain zb currently is 8 out of 10 on a pain scale. Historical: - Allergies: 14:07 PENICILLINS; zb - Home Meds: 14:07 metformin Oral [Active]; zb - PMHx: 14:07 Cellulitis; Diabetes - NIDDM; Hypertension; zb - PSHx: 14:07 BKA; zb - Immunization history:: Adult Immunizations up to date. - Social history:: Smoking status: Patient reports the use of cigarette tobacco products, denies chronic smoking, but will smoke occasionally. Screenin:50 Abuse screen: Denies threats or abuse. Denies injuries from another. Nutritional zb screening: No deficits noted. Tuberculosis screening: No symptoms or risk factors identified. Fall Risk No fall in past 12 months (0 pts). No secondary diagnosis (0 pts). IV access (20 points). Ambulatory Aid- Crutches/Cane/Walker (15 pts). Gait- Weak (10 pts.). Mental Status- Oriented to own ability (0 pts). Total Monahan Fall Scale indicates Low Risk Score (25-44 pts). Fall prevention measures have been instituted. Side Rails Up X 2 Placed close to Nursing Station Frequent Obs/Assesments occuring As available Patient and Family Educated on Fall Prevention Program and strategies. Assessment: 13:50 Reassessment: See triage assessment. zb 15:38 Reassessment: Wound care at bedside. zb 15:38 Reassessment: wound dresssed by woundcare. zb 15:55 Reassessment: Patient appears in no apparent distress at this time. Patient and/or zb family updated on plan of care and expected duration. Pain level reassessed. Patient is alert, oriented x 3, equal unlabored respirations, skin warm/dry/pink. pt resting watching to TV, appears in no discomfort at this time. Vital Signs: 13:57 BP 150 / 96; Pulse 60; Resp 16; Temp 97.6(O); Pulse Ox 98% on R/A; Weight 58.97 kg; zb Height 5 ft. 2 in. (157.48 cm); Pain 8/10; 14:55 BP 176 / 87; Pulse 68; Resp 14; Pulse Ox 100% on R/A; zb 15:30 BP 178 / 90; Pulse 65; Resp 18 S; Pulse Ox 100% on R/A; jd3 16:33 BP 172 / 100; Pulse 73; Resp 16; Pulse Ox 95% on R/A; zb 13:57 Body Mass Index 23.78 (58.97 kg, 157.48 cm) zb ED Course: 13:43 Patient arrived in ED. ag5 13:43 Alfonzo Mera DO is Private Physician. ag5 13:56 Alejandra Prater RN is Primary Nurse. zb 14:05 Triage completed. zb 14:09 Wally Miles MD is Attending Physician. marj 14:30 Arm band placed on. zb 14:30 Patient has correct armband on for positive identification. Bed in low position. Call zb light in reach. Side rails up X 1. Pulse ox on. NIBP on. 15:57 Alfonzo Mera DO is Referral Physician. marj 15:57 Elmo Aldridge MD is Referral Physician. marj 16:33 No provider procedures requiring assistance completed. Patient did not have IV access zb during this emergency room visit. Administered Medications: 16:00 Drug: Bradford (7.5 mg-325 mg) 2 tabs Route: PO; zb 16:10 Follow up: Response: No adverse reaction zb Outcome: 15:57 Discharge ordered by . marj 16:34 Discharged to home ambulatory. zb 16:34 Condition: good 16:34 Discharge instructions given to patient, Instructed on discharge instructions, follow up and referral plans. medication usage, Demonstrated understanding of instructions, follow-up care, medications, Prescriptions given X 2. 16:34 Patient left the ED. zb Signatures: Wally Miles MD MD cha Davies, Jonathon, RN RN Suki Shahid 5 Alejandra Prater RN RN zb
[2020-06-07] MEDS ORDERED: HYDROCODONE/APAP 7.5/325 MG TAB ONE ×2 (16:13→16:40)
[2020-06-07 20:46] VITALS: TEMP 97.6
[2020-06-07 20:53] VITALS: BP 172/100; O2SAT 95
== END 2020-06-07 16:34 | disposition home or self-care (01) ==
LOC: ER 13:41
DX: L89.892 Pressure ulcer of other site, stage 2 (principal); E11.9 Type 2 diabetes mellitus without complications; I10 Essential (primary) hypertension; F17.210 Nicotine dependence, cigarettes, uncomplicated; Z88.0 Allergy status to penicillin; Z89.519 Acquired absence of unspecified leg below knee
CPT/HCPCS: 99251; 99283

== ENCOUNTER 2020-07-07 17:25 | Emergency (ER) | payer OTHER ==
--- OUTSIDE RECORDS SUMMARY | 2020-07-07 17:27 | XMS REPORT | Continuity of Care Document ---
:1950 Author Organization [facility] t Address [address] [place] [address] Care Team Providers Name Role Phone Unavailable Unavailable Unavailable Problems This patient has no known problems. Allergies, Adverse Reactions, Alerts Allergy Allergy Status Severity Reaction(s) Onset Inactive Treating Comm ents Source Name Type Date Date Clinician Penicill Adverse Active Info Not [facility] Medications Ordered Filled Start Stop Current Ordering Indication Dosage Frequency Signature Comments Components Source Medication Medication Date Date Medication? Clinician (SIG) Name Name Lisinopril Lisinopril Yes Alfonzo [address] [facility] Hydrochloro Hydrochloro Yes Alfonzo [address] [facility] thiazide thiazide [facility]era in the [facility] Pantoprazol Pantoprazol Yes Alfonzo [address] [facility] e Sodium e Sodium Mera [facility] Metoprolol Metoprolol Yes Alfonzo [address] [facility] Tartrate Tartrate Mera with food [facility] Ferrous Ferrous Yes Alfonzo [address] [facility] Sulfate Sulfate Mera [facility] Amlodipine Amlodipine Yes Alfonzo [address] [facility] Besylate Besylate Mera [facility] Gabapentin Gabapentin Yes Alfonzo [address] [facility]era [facility] Metformin Metformin Yes Alfonzo [address] [facility] HCl HCl [facility]era with a [facility] Procedures This patient has no known procedures. Encounters Start End Encounter Admission Attending Care Care Encounter Source Date/Time Date/Time Type Type Clinicians Facility Department ID 2020-06-24 2020-06-24 Outpatient [facility] [id number] [facility] 2020-06-03 2020-06-03 [facility] [id number] [facility] 2020-05-25 2020-05-25 [facility] [id number] [facility] 2020-05-13 2020-05-13 [facility] [id number] [facility] 2020-04-29 2020-04-29 [facility] [id number] [facility] 2020-04-15 2020-04-15 [facility] [id number] [facility] 2020-04-15 2020-04-15 Out[facility] [id number] [facility] 2020-04-07 2020-04-07 Out[facility] [id number] [facility] 2020-03-26 2020-03-26 [facility] [id number] [facility] 09:10:00 09:10:00 [facility] [employer] [facility] - [facility] Outpat[facility] Clinics 2019-09-21 2019-09-21 [facility] [id number] [facility] 21:47:00 21:47:[address] [employer] [address] [facility] Medicine l Medicine Outpati ent Clinics 2019-09-19 2019-09-19 [facility] [id number] [facility] 13:30[facility]00 13:30:00 [facility] 2019-09-10 2019-09-10 Outpatient [facility] [id number] 10:15:00 10:15:00 [facility] 2019-06-20 2019-06-20 Outpatient Giana [facility] [id number] [facility] 13:20:00 13:20:00 [facility] 2019-03-21 2019-03-21 Outpatient [facility] [id number] 11:20:00 11:20:00 [facility] ent Clinics Results This patient has no known results.
[2020-07-07] MEDS ORDERED: HYDROCODONE/APAP 10/325 TAB ONE (19:43)
[2020-07-07] MEDS ORDERED: CLINDAMYCIN IV 150 MG/ML (4 mL) VIAL ONE (19:44)
--- NOTE | 2020-07-07 20:17 | ER ---
Nurse's Notes [facility] Name: Amaury Matamoros Age: 69 yrs Sex: Male : 1950 Arrival Date: 07/07/2020 Time: 17:28 Bed 19 Private MD: Diagnosis: Cellulitis of left lower limb Presentation: 07/07 17:29 Chief complaint: Patient states: LLE swelling and redness on the side of his stump, L sv BKA. Reports it started about 2 weeks ago. Coronavirus screen: Client denies travel out of the [place] in the last 14 days. At this time, the client does not indicate any symptoms associated with coronavirus-19. Ebola Screen: No symptoms or risks identified at this time. Risk Assessment: Do you want to hurt yourself or someone else? Patient reports no desire to harm self or others. Onset of symptoms was June 2020. 17:29 Method Of Arrival: Wheelchair sv 17:29 Acuity: ALEJANDRA 3 sv 17:30 Initial Sepsis Screen: Does the patient meet any 2 criteria? No. Patient's initial sv sepsis screen is negative. Does the patient have a suspected source of infection? No. Patient's initial sepsis screen is negative. Triage Assessment: 17:29 General: Appears in no apparent distress. comfortable. Neuro: Level of Consciousness is sv awake, alert, obeys commands. Respiratory: Respiratory effort is even, unlabored. 19:35 General: Behavior is calm, cooperative, appropriate for age. ll2 Historical: - Allergies: 17:30 PENICILLINS; sv - PMHx: 17:30 Cellulitis; Diabetes - NIDDM; Hypertension; sv - PSHx: 17:30 BKA; sv - Immunization history:: Adult Immunizations up to date. - Social history:: Patient/guardian denies using alcohol, street drugs, The patient lives alone, with family, Smoking status: unknown. - Family history:: not pertinent. Screenin:10 Abuse screen: Denies threats or abuse. Nutritional screening: No deficits noted. ll2 Tuberculosis screening: No symptoms or risk factors identified. Fall Risk Ambulatory Aid- Crutches/Cane/Walker (15 pts). Gait- Impaired (20 pts.). Assessment: 19:15 General: Appears in no apparent distress. Behavior is calm, cooperative, appropriate ll2 for age. Pain: Complains of pain in left knee. Neuro: Level of Consciousness is awake, alert, obeys commands, Oriented to person, place, time, situation. Cardiovascular: Patient's skin is warm and dry. Respiratory: Airway is patent Respiratory effort is even, unlabored, Respiratory pattern is regular, symmetrical. GI: No signs and/or symptoms were reported involving the gastrointestinal system. : No signs and/or symptoms were reported regarding the genitourinary system. EENT: No signs and/or symptoms were reported regarding the EENT system. Derm: Skin has blisters on to left knee stump Skin is dry, Skin is normal, redded area to left knee stump. Musculoskeletal: Amputation of medial aspect of left calf, left medial ankle and medial aspect of left foot. Vital Signs: 17:30 BP 108 / 63; Pulse 76; Resp 18; Temp 98.4; Pulse Ox 99% ; sv 19:20 BP 110 / 65; Pulse 78; Resp 17; Temp 98.5; Pulse Ox 99% on R/A; ll2 ED Course: 17:28 Patient arrived in ED. rg4 17:29 Arm band placed on. sv 17:30 Triage completed. sv 19:10 Sadnie Fleming MD is Attending Physician. ma2 19:30 Nettie Pruitt RN is Primary Nurse. ll2 19:30 No provider procedures requiring assistance completed. Patient did not have IV access ll2 during this emergency room visit. 20:10 Patient has correct armband on for positive identification. Bed in low position. Call ll2 light in reach. Side rails up X 1. 20:16 Noah Amor MD is Referral Physician. ma2 Administered Medications: 19:35 Drug: [place] 10 mg-325 mg 1 tabs Route: PO; ll2 19:35 Drug: Clindamycin 600 mg Route: IM; Site: right gluteus; ll2 Outcome: 19:30 Discharged to home via wheelchair. ll2 19:30 Condition: stable 19:30 Discharge instructions given to patient, Instructed on discharge instructions, follow up and referral plans. medication usage, Demonstrated understanding of instructions, follow-up care, medications, Prescriptions given X 2. 20:17 Discharge ordered by . ma2 20:29 Patient left the ED. mw2 Signatures: Kasia Shukla RN RN Eileen Sanchez4 Sandie Fleming MD MD ma2 [place], Mamie 2 Nettie Pruitt RN RN ll2
--- NOTE | 2020-07-07 20:17 | EDPHYS ---
Physician Documentation [facility] Name: Amaury Matamoros Age: 69 yrs Sex: Male : 1950 Arrival Date: 07/07/2020 Time: 17:28 Bed 19 Private MD: ED Physician Sandie Fleming HPI: 07/07 20:04 This 69 yrs old Male presents to ER via Wheelchair with complaints of Wound ma2 Infection. 20:12 This 69 yrs old Male presents to ER via Wheelchair with complaints of Wound ma2 Infection. 20:12 Associated signs and symptoms: Pertinent negatives: auditory hallucinations, burning of ma2 skin, depression, dizziness. Severity of symptoms: At their worst the symptoms were moderate in the emergency department the symptoms are unchanged. The patient has experienced similar episodes in the past. laft knee bka, here with area of redness and pain x 2 weeks . Historical: - Allergies: 17:30 PENICILLINS; sv - PMHx: 17:30 Cellulitis; Diabetes - NIDDM; Hypertension; sv - PSHx: 17:30 BKA; sv - Immunization history:: Adult Immunizations up to date. - Social history:: Patient/guardian denies using alcohol, street drugs, The patient lives alone, with family, Smoking status: unknown. - Family history:: not pertinent. ROS: 20:12 Constitutional: Negative for fever, chills, and weight loss. ma2 20:12 All other systems are negative. Exam: 20:12 Constitutional: This is a well developed, well nourished patient who is awake, alert, ma2 and in no acute distress. Head/Face: Normocephalic, atraumatic. Eyes: Pupils equal round and reactive to light, extra-ocular motions intact. Lids and lashes normal. Conjunctiva and sclera are non-icteric and not injected. Cornea within normal limits. Periorbital areas with no swelling, redness, or edema. ENT: Nares patent. No nasal discharge, no septal abnormalities noted. Tympanic membranes are normal and external auditory canals are clear. Oropharynx with no redness, swelling, or masses, exudates, or evidence of obstruction, uvula midline. Mucous membranes moist. Neck: Trachea midline, no thyromegaly or masses palpated, and no cervical lymphadenopathy. Supple, full range of motion without nuchal rigidity, or vertebral point tenderness. No Meningismus. Chest/axilla: Normal chest wall appearance and motion. Nontender with no deformity. No lesions are appreciated. Cardiovascular: Regular rate and rhythm with a normal S1 and S2. No gallops, murmurs, or rubs. Normal PMI, no JVD. No pulse deficits. Respiratory: Lungs have equal breath sounds bilaterally, clear to auscultation and percussion. No rales, rhonchi or wheezes noted. No increased work of breathing, no retractions or nasal flaring. Abdomen/GI: Soft, non-tender, with normal bowel sounds. No distension or tympany. No guarding or rebound. No evidence of tenderness throughout. Skin: Warm, dry with normal turgor. Normal color with no rashes, no lesions, and no evidence of cellulitis. MS/ Extremity: LLEs/p BKA, has area of redness over lateral aspect, no swelling or fluctuence, n ocrepitations, Pulses equal, no cyanosis. Neurovascular intact. Full, normal range of motion. Neuro: Awake and alert, GCS 15, oriented to person, place, time, and situation. Cranial nerves II-XII grossly intact. Motor strength 5/5 in all extremities. Sensory grossly intact. Cerebellar exam normal. Normal gait. Vital Signs: 17:30 BP 108 / 63; Pulse 76; Resp 18; Temp 98.4; Pulse Ox 99% ; sv 19:20 BP 110 / 65; Pulse 78; Resp 17; Temp 98.5; Pulse Ox 99% on R/A; ll2 MDM: 19:10 Patient medically screened. ma2 20:12 Differential diagnosis: cellulitis. unlikely abscess, no NEC fasciitis. unlikely ma2 hematoma. Data reviewed: vital signs, nurses notes. Counseling: I had a detailed discussion with the patient and/or guardian regarding: the historical points, exam findings, and any diagnostic results supporting the discharge/admit diagnosis, the presence of at least one elevated blood pressure reading (>120/80) during this emergency department visit, the need for outpatient follow up. Response to treatment: the patient's symptoms have markedly improved after treatment. Administered Medications: 19:35 Drug: Doerun 10 mg-325 mg 1 tabs Route: PO; ll2 19:35 Drug: Clindamycin 600 mg Route: IM; Site: right gluteus; ll2 Disposition: 07/07/20 20:17 Discharged to Home. Impression: Cellulitis of left lower limb. - Condition is Stable. - Discharge Instructions: Cellulitis, Adult, [id number]. - Prescriptions for Clindamycin HCl 300 mg Oral Capsule - take 1 capsule by ORAL route every 6 hours for 10 days; 40 capsule. Diclofenac Sodium 75 mg Oral Tablet Sustained Release - take 1 tablet by ORAL route 2 times per day; 30 tablet. - Medication Reconciliation Form, Thank You Letter, Antibiotic Education, Prescription Opioid Use form. - Follow up: Noah Amor MD; When: Tomorrow; Reason: If symptoms return, Continuance of care. Signatures: Kasia Shukla RN RN Sandie Woods MD MD ma2 Reyes Gorman mw2 Nettie Pruitt RN RN ll2 Corrections: (The following items were deleted from the chart) 20:29 20:17 07/07/2020 20:17 Discharged to Home. Impression: Cellulitis of left lower limb. mw2 Condition is Stable. Forms are Medication Reconciliation Form, Thank You Letter, Antibiotic Education, Prescription Opioid Use. Follow up: Dr. Noah Amor; When: Tomorrow; Reason: If symptoms return, Continuance of care. ma2
[2020-07-07 20:58] VITALS: BP 108/63; TEMP 98.4; O2SAT 99
== END 2020-07-07 20:29 | disposition home or self-care (01) ==
LOC: ER 17:25
DX: L03.116 Cellulitis of left lower limb (principal); Z89.512 Acquired absence of left leg below knee; I10 Essential (primary) hypertension; Z88.0 Allergy status to penicillin
CPT/HCPCS: 96372; 99283; S0077

== ENCOUNTER 2020-09-29 19:43 | Emergency (ER) | payer OTHER ==
--- OUTSIDE RECORDS SUMMARY | 2020-09-29 19:45 | XMS REPORT | Continuity of Care Document ---
:1950 Author Organization [facility] t Address [address] [place] [address] Care Team Providers Name Role Phone Unavailable Unavailable Unavailable Problems This patient has no known problems. Allergies, Adverse Reactions, Alerts Allergy Allergy Status Severity Reaction(s) Onset Inactive Treating Comm ents Source Name Type Date Date Clinician Penicill Adverse Active Info Not [facility] Reaction Available [facility] Medications Ordered Filled Start Stop Current Ordering Indication Dosage Frequency Signature Comments Components Source Medication Medication Date Date Medication? Clinician (SIG) Name Name Lisinopril Lisinopril Yes Alfonzo [address] [facility] Hydrochloro Hydrochloro Yes Alfonzo [address] [facility] thiazide thiazide Mera in the [facility] Pantoprazol Pantoprazol Yes Alfonzo [address] [facility] e Sodium e Sodium Mera [facility] Metoprolol Metoprolol Yes Alfonzo [address] [facility] Tartrate Tartrate Mera with food [facility] Ferrous Ferrous Yes Alfonzo [address] [facility] Sulfate Sulfate Mera [facility] Amlodipine Amlodipine Yes Alfonzo [address] [facility] Besylate Besylate Mera [facility] Gabapentin Gabapentin Yes Alfonzo [address] [facility] Metformin Metformin Yes Alfonzo [address] [facility] HCl HCl Mera with a [facility] Procedures This patient has no known procedures. Encounters Start End Encounter Admission Attending Care Care Encounter Source Date/Time Date/Time Type Type Clinicians Facility Department ID 2020-06-24 2020-06-24 [facility] [id number] [facility] 2020-06-03 2020-06-03 [facility] [id number] [facility] 2020-05-25 2020-05-25 [facility] [id number] [facility] 2020-05-13 2020-05-13 [facility] [id number] [facility] 2020-04-29 2020-04-29 [facility] [id number] [facility] 2020-04-15 2020-04-15 [facility] [id number] [facility] 2020-04-15 2020-04-15 [facility] [id number] [facility] 2020-04-07 2020-04-07 [facility] [id number] [facility] 2020-03-26 2020-03-26 [facility] [id number] [facility] 09[facility]10[facility] 09:10:[address] [facility] l Medicine Outpati ent Clinics 2019-09-21 2019-09-21 [facility] [id number] [facility] 21:47[facility] 21:47:[address] [facility] Medicine l Medicine Outpati ent Clinics 2019-09-19 2019-09-19 [facility] [id number] 13:30:00 13:30:00 [facility] 2019-09-10 2019-09-10 Outpatient Giana [facility] [id number] [facility] 10:15:00 10:15:00 [facility] 2019-06-20 2019-06-20 Outpatient Giana Huerta [id number] [facility] 13:20:00 13:20:00 [facility] 2019-03-21 2019-03-21 Outpatient Giana Huerta [id number] [facility] 11:20:00 11:20:00 [facility] ent Clinics Results This patient has no known results.
[2020-09-29] MEDS ORDERED: MORPHINE 2 MG/ML SYR ONE (23:26)
[2020-09-29 23:45] LABS: Absolute Lymphocytes (CBC) 0.9 K/uL (0.7-4.9); Basophils % 0.3 % (0-1.3); Hematocrit 21.8 % (39.6-49.0); Lymphocytes % 5.5 % (15.3-44.8); MPV 9.1 fL (7.6-11.3); RBC Red Blood Cell Count 2.57 M/uL (4.33-5.43)
[2020-09-29 23:54] LABS: BUN Blood Urea Nitrogen 53 mg/dL (7-18); Bicarbonate 19 mmol/L (21-32); Glucose Level 176 mg/dL (74-106); Potassium 3.7 mmol/L (3.5-5.1); Sodium Level 135 mmol/L (136-145)
--- NOTE | 2020-09-30 00:58 | ER ---
[facility] Name: Ama[facility] Age: 69 yrs Sex: Male : 1950 Arrival Date: 09/29/2020 Time: 19:44 Bed 7 Private MD: Diagnosis: Anemia in chronic diseases classified elsewhere;Gastrointestinal hemorrhage, unspecified;Cellulitis of left lower limb;Acute kidney failure Presentation: 09/29 20:12 Chief complaint: Patient states: L BKA stump pain, blister, redness for 3 day, worse ll1 today. No known fever. Coronavirus screen: Client denies travel out of the [place] in the last 14 days. At this time, the client does not indicate any symptoms associated with coronavirus-19. Ebola Screen: Patient denies travel to an Ebola-affected area in the 21 days before illness onset. Initial Sepsis Screen: Does the patient meet any 2 criteria? No. Patient's initial sepsis screen is negative. Does the patient have a suspected source of infection? Yes: Skin breakdown/wound Bone or joint infection. Risk Assessment: Do you want to hurt yourself or someone else? Patient reports no desire to harm self or others. Onset of symptoms was September 27, 2020. 20:12 Method Of Arrival: Wheelchair ll1 20:12 Acuity: ALEJANDRA 3 ll1 Historical: - Allergies: 20:14 PENICILLINS; ll1 - PMHx: 20:14 Cellulitis; Diabetes - NIDDM; Hypertension; ll1 - PSHx: 20:14 BKA; ll1 - Immunization history:: Flu vaccine is up to date. - Social history:: Smoking status: Patient reports the use of cigarette tobacco products, smokes one-half pack cigarettes per day. Screenin:14 Abuse screen: Denies threats or abuse. Denies injuries from another. Nutritional rv screening: No deficits noted. Tuberculosis screening: No symptoms or risk factors identified. Fall Risk No fall in past 12 months (0 pts). Secondary diagnosis (15 points) impaired mobility, IV access (20 points). Ambulatory Aid- Crutches/Cane/Walker (15 pts). Gait- Impaired (20 pts.). Mental Status- Oriented to own ability (0 pts). Total Monahan Fall Scale indicates High Risk Score (45 or more points). Fall prevention measures have been instituted. Side Rails Up X 2 Placed Close to Nursing Station Frequent Obs/Assessments Occuring As available patient and family educated on Fall Prevention Program and Strategies. Assessment: 23:13 General: Appears comfortable, Behavior is calm, cooperative. Pain: Complains of pain in rv left leg. Neuro: Level of Consciousness is awake, alert, obeys commands, Oriented to person, place, time, situation. Cardiovascular: Patient's skin is warm and dry. Respiratory: Airway is patent Respiratory effort is even, unlabored. Derm: Skin is intact. Musculoskeletal: LEFT LEG STOMP APPEARS TO BE RED. NO SIGNS OF SWELLING NOTED. Vital Signs: 20:12 BP 148 / 88; Pulse 73; Resp 18; Temp 98.5; Pulse Ox 99% ; Height 5 ft. 2 in. (157.48 ll1 cm); Pain 10/10; 23:15 BP 133 / 79; Pulse 96; Resp 16; Pulse Ox 99% on R/A; rv 03/18 00:22 BP 156 / 84; Pulse 80; Resp 16; Pulse Ox 99% on R/A; rv 01:00 BP 173 / 91; Pulse 86; Resp 16; Pulse Ox 100% on R/A; rv 02:00 BP 164 / 88; Pulse 84; Resp 17; Pulse Ox 99% on R/A; rv 03:00 BP 175 / 95; Pulse 87; Resp 16; Pulse Ox 99% on R/A; rv 03:19 BP 173 / 91; Pulse 87; Resp 17; Pulse Ox 98% on R/A; rv 03:25 BP 163 / 85; Pulse 87; Resp 17; Pulse Ox 98% on R/A; rv 03:30 BP 158 / 94; Pulse 85; Resp 15; Pulse Ox 98% on R/A; rv ED Course: 09/29 19:44 Patient arrived in ED. cl3 20:14 Triage completed. ll1 20:14 Arm band placed on. ll1 22:51 Wally Espinosa PA is PHCP. cp 22:51 Wally Miles MD is Attending Physician. cp 23:03 Sea Thompson, COURTNEY is Primary Nurse. rv 23:13 Initial lab(s) drawn, by wv, sent to lab. Inserted saline lock: 20 gauge in right rv forearm, using aseptic technique. Blood collected. 23:15 Patient has correct armband on for positive identification. Pulse ox on. NIBP on. rv 23:32 US Extremity Venous Unilateral Ltd In Process Unspecified. EDMS 09/30 01:56 initiated a transfer with Anitahay Mayen from [facility]. mw2 02:00 Inserted saline lock: 20 gauge in left forearm, using aseptic technique. rv 02:22 doc to doc with the computer aide from [facility]. mw2 02:31 administrative approval given by Anita Mayen/ patient has been accepted to [address] [facility] [address] [place] [address]/ Dr. Davison has accepted the patient in transfer/ report to be called to [phone]. 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 rv 04:01 ONE UNIT OF RBC ONGOING UPON TRANSFER. rv 04:03 IV is patent, is swollen, Patient transferred, IV remains in place. rv Administered Medications: 09/29 23:12 Not Given (Duplicate Order): morphine 4 mg IVP once; RASS on ADMIN: Combtv4, Very rv Agttd3, Agttd2, Rstlss1, AlertClm0, Drwsy-1, Lt Sdtn-2, Mod Sdtn-3, Dp Sdtn-4, UnArsble-5 23:13 Drug: morphine 2 mg Route: IVP; Site: right forearm; rv 09/30 01:15 Drug: ProTONIX 40 mg Route: IVP; Site: left forearm; rv 04:05 Follow up: Response: No adverse reaction rv 01:15 Drug: Cefepime 1 grams Route: IVPB; Rate: 200 ml/hr; Infused Over: 30 mins; Site: right rv forearm; 04:05 Follow up: IV Status: Completed infusion rv 01:29 Drug: ProTONIX 8 mg/hr Route: IV; Rate: 25 ml/hr; Site: left forearm; rv 04:05 Follow up: IV Status: Infusion continued upon transfer rv 04:05 Drug: morphine 2 mg Route: IVP; Site: right forearm; rv 04:05 Follow up: Response: No adverse reaction; Pain is decreased; RASS: Alert and Calm (0) rv Outcome: 00:57 ER care complete, transfer ordered by cp 04:04 Transferred by ground EMS to [facility], Transfer form completed. rv X-rays sent w/ patient. 04:04 Condition: good 04:04 Instructed on the need for transfer. 04:06 Patient left the ED. rv Signatures: Dispatcher [employer] EDMS Wally Espinosa PA PA cp [place], MyKena mw2 Sea Thompson RN RN rv Lyndon Rivera cl3 Bairon Rivera RN RN ll1
--- NOTE | 2020-09-30 00:58 | EDPHYS ---
Physician Documentation [facility] Name: Amaury Matamoros Age: 69 yrs Sex: Male : 1950 Arrival Date: 09/29/2020 Time: 19:44 Bed 7 Private MD: ED Physician Wally Miles HPI: 09/29 23:05 This 69 yrs old Male presents to ER via Wheelchair with complaints of Leg Pain.cp 23:05 The patient presents with pain, that is acute. The complaints affect the amputation cp site of left lower extremity. 23:05 Onset: The symptoms/episode began/occurred 3 day(s) ago. cp 23:05 Associated signs and symptoms: Pertinent negatives injury. Treatment prior to arrival cp includes: no previous treatment. Historical: - Allergies: 20:14 PENICILLINS; ll1 - PMHx: 20:14 Cellulitis; Diabetes - NIDDM; Hypertension; ll1 - PSHx: 20:14 BKA; ll1 - Immunization history:: Flu vaccine is up to date. - Social history:: Smoking status: Patient reports the use of cigarette tobacco products, smokes one-half pack cigarettes per day. ROS: 23:10 MS/extremity: Positive for erythema, pain, swelling, tenderness, of the amputation site cp of left lower extremity. 23:10 Eyes: Negative for injury, pain, redness, and discharge. cp 23:10 Constitutional: Negative for body aches, chills, fever, poor PO intake. 23:10 Cardiovascular: Negative for chest pain, palpitations. 23:10 Respiratory: Negative for cough, shortness of breath, wheezing. 23:10 Abdomen/GI: Positive for black/tarry stool, Negative for abdominal pain, nausea, vomiting, and diarrhea. 23:10 : Negative for urinary symptoms. 23:10 Neuro: Negative for altered mental status, headache, weakness. 23:10 All other systems are negative. Exam: 23:15 Constitutional: The patient appears in no acute distress, alert, awake, cp non-diaphoretic, non-toxic, well developed, well nourished. 23:15 Head/Face: Normocephalic, atraumatic. cp 23:15 Eyes: Periorbital structures: appear normal, Conjunctiva: normal, no exudate, no injection, Sclera: no appreciated abnormality, Lids and lashes: appear normal, bilaterally. 23:15 ENT: External ear(s): are unremarkable, Nose: is normal, Mouth: Lips: moist, Oral cp mucosa: moist, Posterior pharynx: Airway: no evidence of obstruction, patent. 23:15 Chest/axilla: Inspection: normal, Palpation: is normal, no crepitus, no tenderness. 23:15 Cardiovascular: Rate: normal, Rhythm: regular, Edema: is not appreciated. 23:15 Respiratory: the patient does not display signs of respiratory distress, Respirations: normal, no use of accessory muscles, no retractions, labored breathing, is not present, Breath sounds: are clear throughout, no decreased breath sounds, no stridor, no wheezing. 23:15 Abdomen/GI: Inspection: abdomen appears normal, Bowel sounds: active, all quadrants, Palpation: abdomen is soft and non-tender, in all quadrants. 23:15 Back: pain, is absent, ROM is normal. cp 23:15 Skin: cellulitis, that is moderate, on the amputation site of left lower extremity. 23:15 Neuro: Orientation: to person, place \T\ time. Mentation: is normal. 09/30 00:20 Abdomen/GI: Rectal exam: Stool: guaiac positive, black. cp 01:11 ECG was reviewed by the Attending Physician. cp Vital Signs: 09/29 20:12 BP 148 / 88; Pulse 73; Resp 18; Temp 98.5; Pulse Ox 99% ; Height 5 ft. 2 in. (157.48 ll1 cm); Pain 10/10; 23:15 BP 133 / 79; Pulse 96; Resp 16; Pulse Ox 99% on R/A; rv /18 00:22 BP 156 / 84; Pulse 80; Resp 16; Pulse Ox 99% on R/A; rv 01:00 BP 173 / 91; Pulse 86; Resp 16; Pulse Ox 100% on R/A; rv 02:00 BP 164 / 88; Pulse 84; Resp 17; Pulse Ox 99% on R/A; rv 03:00 BP 175 / 95; Pulse 87; Resp 16; Pulse Ox 99% on R/A; rv 03:19 BP 173 / 91; Pulse 87; Resp 17; Pulse Ox 98% on R/A; rv 03:25 BP 163 / 85; Pulse 87; Resp 17; Pulse Ox 98% on R/A; rv 03:30 BP 158 / 94; Pulse 85; Resp 15; Pulse Ox 98% on R/A; rv MDM: 09/29 22:53 Patient medically screened. 09/30 01:23 Differential diagnosis: abscess, cellulitis, anemia. Data reviewed: vital signs, nurses cp notes, lab test result(s), EKG, radiologic studies, ultrasound. 09/29 23:00 Order name: CBC with Diff; Complete Time: 02:21 cp 09/30 00:12 Interpretation: Normal except: WBC 17.20; RBC 2.57; HGB 6.8; HCT 21.8; MCH 26.5; MCHC cp 31.2; LISET% 89.3; LYM% 5.5; NEUT A 15.4. 09/29 23:00 Order name: BMP; Complete Time: 02:21 cp 09/30 00:10 Interpretation: Normal except: NA 135; CO2 19; GLUC 176; BUN 53; CRE 2.46; GFR 26; CA cp 8.3. 09/30 00:11 Order name: Manual Differential; Complete Time: 02:21 EDMS 09/30 00:41 Order name: LFT's cp 09/30 00:41 Order name: Magnesium cp 09/30 00:41 Order name: PT-INR cp 09/30 00:41 Order name: Lactate; Complete Time: 02:21 cp 09/30 00:41 Order name: Procalcitonin cp 09/30 00:41 Order name: Blood Culture Adult (2) cp 09/30 00:42 Order name: Protime (+INR); Complete Time: 02:21 EDMS 09/29 23:00 Order name: IV; Complete Time: 23:12 cp 09/29 23:00 Order name: US Extremity Venous Unilateral Ltd cp 09/30 00:41 Order name: XRAY Chest (1 view) cp 09/30 00:41 Order name: EKG; Complete Time: 00:42 cp 09/30 00:41 Order name: Cardiac monitoring; Complete Time: 01:15 cp 09/30 00:55 Order name: Liver (Hepatic) Function; Complete Time: 02:21 EDMS 09/30 00:55 Order name: Troponin (Emerg Dept Use Only); Complete Time: 02:21 EDMS 09/30 00:55 Order name: Magnesium; Complete Time: 02:21 EDMS 09/30 01:18 Order name: Type And Screen cp 09/30 01:24 Order name: Packed RBC Leukored EDAL 09/30 01:56 Order name: SARS-COV-2 RT PCR; Complete Time: 02:21 EDMS 09/30 00:41 Order name: EKG - Nurse/Tech; Complete Time: 01:15 cp 09/30 00:41 Order name: Labs collected and sent; Complete Time: 01:15 cp 09/30 00:41 Order name: O2 Per Protocol; Complete Time: 01:15 cp 09/30 00:41 Order name: O2 Sat Monitoring; Complete Time: 01:16 cp EC:11 Rate is 84 beats/min. Rhythm is regular. MI interval is normal. QRS interval is normal. cp QT interval is normal. T waves are Inverted in leads aVR, V2. Interpreted by me. Reviewed by me. Administered Medications: 09/29 23:12 Not Given (Duplicate Order): morphine 4 mg IVP once; RASS on ADMIN: Combtv4, Very rv Agttd3, Agttd2, Rstlss1, AlertClm0, Drwsy-1, Lt Sdtn-2, Mod Sdtn-3, Dp Sdtn-4, UnArsble-5 23:13 Drug: morphine 2 mg Route: IVP; Site: right forearm; rv 09/30 01:15 Drug: ProTONIX 40 mg Route: IVP; Site: left forearm; rv 04:05 Follow up: Response: No adverse reaction rv 01:15 Drug: Cefepime 1 grams Route: IVPB; Rate: 200 ml/hr; Infused Over: 30 mins; Site: right rv forearm; 04:05 Follow up: IV Status: Completed infusion rv 01:29 Drug: ProTONIX 8 mg/hr Route: IV; Rate: 25 ml/hr; Site: left forearm; rv 04:05 Follow up: IV Status: Infusion continued upon transfer rv 04:05 Drug: morphine 2 mg Route: IVP; Site: right forearm; rv 04:05 Follow up: Response: No adverse reaction; Pain is decreased; RASS: Alert and Calm (0) rv Disposition: 06:49 Co-signature as Attending Physician, Wally Miles MD I agree with the assessment and marj plan of care. Disposition: 09/30/20 00:57 Transfer ordered to [facility]. Diagnosis are Anemia in chronic diseases classified elsewhere, Gastrointestinal hemorrhage, unspecified, Cellulitis of left lower limb, Acute kidney failure. - Reason for transfer: Higher level of care. - Accepting physician is DR Winters. - Condition is Stable. - Problem is new. - Symptoms have improved. Signatures: Dispatcher [employer] EDAL Wally Miles MD MD cha Page, Corey, PA PA cp Sea Thompson RN RN rv Bairon Rivera RN RN ll1 Corrections: (The following items were deleted from the chart) 00:10 00:10 Normal except: NA 135; CO2 19; GLUC 176; BUN 53; CRE 2.46; GFR 26. cp cp 00:53 00:30 CORONAVIRUS+MR.LAB.BRZ ordered. EDAL EDMS 00:55 00:42 Liver (Hepatic) Function ordered. EDAL EDMS 00:55 00:42 Magnesium ordered. EDAL EDMS 00:55 00:42 TROPONIN (EMERG DEPT USE ONLY)+C.LAB.BRZ ordered. EDAL EDMS 02:36 00:57 09/30/2020 00:57 Transfer ordered to [facility]. cp Diagnosis is Anemia in chronic diseases classified elsewhere; Gastrointestinal hemorrhage, unspecified; Cellulitis of left lower limb; Acute kidney failure. Reason for transfer: Higher level of care. Accepting physician is Doctor. Condition is Stable. Problem is new. Symptoms have improved. cp 04:06 02:36 09/30/2020 00:57 Transfer ordered to [facility]. rv Diagnosis is Anemia in chronic diseases classified elsewhere; Gastrointestinal hemorrhage, unspecified; Cellulitis of left lower limb; Acute kidney failure. Reason for transfer: Higher level of care. Accepting physician is DR Winters. Condition is Stable. Problem is new. Symptoms have improved. cp
[2020-09-30] MEDS ORDERED: PANTOPRAZOLE 40 MG INJ ONE (01:06)
[2020-09-30] MEDS ORDERED: CEFEPIME/SWI 1gm 10 ML ONE (01:06)
[2020-09-30] MEDS ORDERED: NA CHLORIDE 0.9% 250 ML ONE (01:06)
[2020-09-30 01:20] LABS: ALT/SGPT 17 U/L (12-78); AST/SGOT 23 U/L (15-37); Albumin 2.8 g/dL (3.4-5.0); Bilirubin Direct 0.2 mg/dL (0-0.2); Bilirubin Total 0.4 mg/dL (0.2-1.0); Magnesium 2.1 mg/dL (1.8-2.4); Protein, Total 7.8 g/dL (6.4-8.2); Troponin (Emerg Dept Use Only) < 0.02 ng/mL (0.0-0.045)
[2020-09-30 01:21] LABS: Alkaline Phosphatase ND U/L (45-117)
[2020-09-30 01:32] LABS: Blood Morphology Comment NOT SEEN (NOT SEEN); Platelet Estimate ADEQ
[2020-09-30 01:37] LABS: Protime INR 1.03
[2020-09-30] MEDS ORDERED: MORPHINE 2 MG/ML SYR ONE (01:48)
[2020-09-30] MEDS ORDERED: NA CHLORIDE 0.9% 100 ML ONE (02:49)
[2020-09-30 04:11] VITALS: TEMP 98.5
[2020-09-30 04:23] VITALS: O2SAT 98
[2020-09-30 04:26] VITALS: BP 158/94
--- NOTE | 2020-09-30 08:49 | RAD REPORT ---
EXAM DESCRIPTION: US - Extremity Venous Uni Ltd - 09/29/2020 11:32 pm CLINICAL HISTORY: Pain;Swelling Leg swelling and edema. COMPARISON: No comparisons FINDINGS: Left lower extremity venous system was interrogated with Doppler technique. There is a bel ow the knee amputation. No left lower extremity DVT is present. IMPRESSION: No evidence of left lower extremity deep venous thrombosis.
--- NOTE | 2020-09-30 08:52 | RAD REPORT ---
EXAM DESCRIPTION: RAD - Chest Single View - 09/30/2020 12:55 am CLINICAL HISTORY: anemia Chest pain. COMPARISON: Chest Single View dated 02/03/2020; Chest Single View dated 01/28/2020; Chest Single View dated 01/25/2020; Chest Single View dated 07/10/2018 FINDINGS: Portable technique limits examination quality. Mild interstitial pulmonary edema is seen. The heart is upper limit normal in size. No displaced frac tures.
== END 2020-09-30 04:06 | disposition short-term general hospital (02) ==
LOC: ER 19:43
PROC: 30233N1 Transfusion of Nonautologous Red Blood Cells into Peripheral Vein, Percutaneous Approach (ICD-10-PCS; principal; 2020-09-30)
DX: D64.9 Anemia, unspecified (principal); N17.9 Acute kidney failure, unspecified; L03.116 Cellulitis of left lower limb; Z89.512 Acquired absence of left leg below knee; I10 Essential (primary) hypertension; F17.210 Nicotine dependence, cigarettes, uncomplicated; Z20.822 Contact with and (suspected) exposure to COVID-19; Z88.0 Allergy status to penicillin
CPT/HCPCS: 93005; 87040 ×2; 85025; 80048; 36415 ×2; 86900; 83735; 86850; 85610; 86901; 80076; 83605; 84484; 84145; 71045; 93971; 99285; 36430; U0003; C9113; J2270 ×2; J0692; P9016; J7050

== ENCOUNTER 2020-10-29 10:46 | Inpatient (IN) | payer OTHER ==
--- OUTSIDE RECORDS SUMMARY | 2020-10-29 10:51 | XMS REPORT | Continuity of Care Document ---
:1950 Author Organization [facility] t Address [facility] [place] [address] Care Team Providers Name Role Phone Lynda Espinoza MD Attending Clinician Niranjan Jackson MD Attending Clinician Lynda ESPINOZA Attending Clinician Unavailable Narda MAXWELL, Eric Attending Clinician Jose Ross MD Attending Clinician Lynda ESPINOZA Admitting Clinician Unavailable Payers Payer Name Policy Type Policy Effective Date Expiration Date Sour ce Number [facility] [id number] [facility] MGD CAREWELLCARE 00:00:00 - Medica l [id number] Center 21-Present Problems Condition Condition Condition Status Onset Resolution Last Treating Co mments Source Name Details Category Date Date Treatment Clinician Date 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 00:00: Me dical site site 00 Center Liver Liver Disease Active [facility] cirrhosis cirrhosis 3- [facility] - 00:00: Medical 00 [place] Portal Portal Disease Active [facility] hypertensi hypertensi - Estrella kes - ve ve 00:00: Medical gastropath gastropath 00 Ce nter y y GI bleed GI bleed Disease Active [facility] t 3-18 [facility] - 00:00: Medical 00 [place] Allergies, Adverse Reactions, Alerts Allergy Allergy Status Severity Reaction(s) Onset Inactive Treating Comm ents Source Name Type Date Date Clinician Penicill Drug Active Rash [facility] Allergy 12-13 [facility] - 00:00: Medical 00 Center Penicill Adverse Active Info Not [facility] t amine Reaction Available [facility] Social History Social Habit Start Date Stop Date Quantity Comments Source Sex Assigned At [facility] Exposure to Not sure [facility] SARS-CoV2 [facility] (event) Tobacco use and 2020-10-04 2020-10-04 Never used [facility] - exposure 00:00:00 00:00:00 [facility] Alcohol intake 2020-10-04 2020-10-04 Current drinker [facility] Elvis [facility] - 00:00:00 00:00:00 of alcohol [facility] (finding) Smoking Status Start Date Stop Date Source Current every day smoker 2020-10-04 00:00:00 [facility] Medications Ordered Filled Start Stop Current Ordering Indication Dosage Frequency Signature Comments Components Source Medication Medication Date Date Medication? Clinician (SIG) Name Name amLODIPine 2021- Yes 2.5mg QD Take [address] (NORVASC) 10-04 tablet [facility] - 2.5 MG 00:00: 23:59 (2.5 mg Medical tablet 00 :00 total) by Center mouth daily. pantoprazol Yes 40mg Q.5D Take [address] e - tablet (40 [facility] - (PROTONIX) 00:00: mg total) Me dical 40 MG 00 by mouth 2 Center tablet (two) times daily. acetaminoph 2021- Yes 650mg Take [address] en -16 tablets [facility] - (TYLENOL) 00:00: 23:59 (650 mg Medi marisel 325 MG 00 :00 total) by Center tablet mouth every 6 (six) hours as needed for up to 360 days. doxycycline 2020- No 100mg Take [address] (MONODOX) 10-03 capsule [facility] - 100 MG 00:00: 23:59 (100 mg Medical capsule 00 :00 total) by Center mouth every 12 (twelve) hours for 10 days. Lisinopril Lisinopril Yes Alfonzo [address] Mera [facility] Hydrochloro Hydrochloro Yes Alfonzo [address] thiazide thiazide Mera in the Luke s - morning [facility] Pantoprazol Pantoprazol Yes Alfonzo [address] e Sodium e Sodium [facility] Metoprolol Metoprolol Yes Alfonzo [address] Tartrate Tartrate Mera with food [facility] Ferrous Ferrous Yes Alfonzo [address] Sulfate Sulfate Mera [facility] Amlodipine Amlodipine Yes Alfonzo [address] Besylate Besylate Mera [facility] Gabapentin Gabapentin Yes Alfonzo [address] Mera [facility] Metformin Metformin Yes Alfonzo [address] HCl HCl Mera with a Lukes - meal [facility] Vital Signs Vital Name Observation Time Observation Value Comments Source Systolic blood 2020-10-03 19:17:00 111 mm[Hg] [facility] Diastolic blood 2020-10-03 19:17:00 61 mm[Hg] [facility] Heart rate 2020-10-03 19:17:00 75 /min [facility] Body temperature 2020-10-03 19:17:00 36.94 Latesha [facility] Respiratory rate 2020-10-03 19:17:00 17 /min [facility] Oxygen saturation in 2020-10-03 19:17:00 98 /min [facility] - Arterial blood by Medical Ce nter Pulse oximetry Body weight 2020-10-03 07:05:00 51.982 kg [facility] BMI 2020-10-03 07:05:00 20.96 kg/m2 [facility] Body height 2020-09-30 05:22:00 157.5 cm [facility] Procedures Procedure Date / Time Performed Performing Clinician Sourc e POCT-GLUCOSE METER 2020-10-03 18:09:00 Alice Jackson [facility] HEPATITIS B PCR, 2020-10-03 15:49:00 Narda [facility] HEPATITIS C PCR, 2020-10-03 15:49:00 Sarkis Laboy [facility] QUANTITATIVE [facility] POCT-GLUCOSE METER 2020-10-03 11:48:00 Renetta [facility] POCT-GLUCOSE METER 2020-10-03 08:34:00 Renetta [facility] CBC W/PLT COUNT & AUTO 2020-10-03 04:35:00 Nate Fields [facility] CBC (HEMOGRAM ONLY) 2020-10-03 04:35:00 Delmi Peguero [facility] BASIC METABOLIC PANEL (7) 2020-10-03 04:35:00 Delmi Peguero [facility] ACTIN (SMOOTH MUSCLE) 2020-10-03 04:35:00 [facility], IGG [facility] ALPHA FETOPROTEIN (AFP), 2020-10-03 04:35:00 [facility] TUMOR MARKER [facility] [id number]\\, 2020-10-03 04:35:00 [facility] SERUM [facility] ANTI-NUCLEAR ANTIBODY 2020-10-03 04:35:00 [facility] - (GAMAL) [facility] BILIRUBIN, DIRECT 2020-10-03 04:35:00 [facility] 2020-10-03 04:35:00 [facility]TIBODY, IGG 2020-10-03 04:35:[address] [facility] HEPATITIS B SURFACE 2020-10-03 04:35:00 Wendy, Kiah [facility] - ANTIBODY [facility] HEPATITIS B SURFACE 2020-10-03 04:35:00 Wendy, Kiah [facility] S t [facility] - ANTIGEN [facility] HEPATITIS B CORE 2020-10-03 04:35:00 Wendy, Kiah [facility] - ANTIBODY, TOTAL [facility] HEPATITIS C ANTIBODY 2020-10-03 04:35:00 [facility] Delfinaq [facility] MITOCHONDRIA M2 ANTIBODY 2020-10-03 04:35:[address] [facility] [facility] (IGG) [facility] PROTHROMBIN TIME/INR 2020-10-03 04:35:00 [facility] POCT-GLUCOSE METER 2020-10-02 21:19:00 Alice Jackson [facility] CBC W/PLT COUNT & AUTO 2020-10-02 17:29:00 Nate Fields [facility] VANCOMYCIN LEVEL, TROUGH 2020-10-02 17:29:00 Severo Martinez [facility] POCT-GLUCOSE METER 2020-10-02 17:24:00 Alice Jackson [facility] POCT-GLUCOSE METER 2020-10-02 11:21:00 Alice Jackson [facility] POCT-GLUCOSE METER 2020-10-02 08:03:00 Alice Jackson [facility] CBC W/PLT COUNT & AUTO 2020-10-02 03:39:00 Nate Fields [facility] COMPREHENSIVE METABOLIC 2020-10-02 03:39:00 Delmi Peguero [facility] POCT-GLUCOSE METER 2020-10-01 21:23:00 Alice Jackson [facility] HEMOGLOBIN A1C 2020-10-01 14:34:00 Delmi Peguero [facility] CBC W/PLT COUNT & AUTO 2020-10-01 12:08:[address] [facility] DIFFERENTIAL [facility] POCT-GLUCOSE METER 2020-10-01 10:58:00 Alexis Jacksonurad [facility] REPORT OF PROCEDURE - 2020-10-01 10:35:58 Narda [facility] ENDOSCOPY [facility] VANCOMYCIN LEVEL, RANDOM 2020-10-01 10:06:00 Meghann Grier [facility] TISSUE EXAM 2020-10-01 09:43:00 Narda [facility] UPPER ENDOSCOPY,BIOPSY 2020-10-01 09:14:00 Narda [facility] POCT-GLUCOSE METER 2020-10-01 08:23:00 Renetta Alice [facility] POCT-GLUCOSE METER 2020-10-01 05:11:00 Renetta Alice [facility] VITAMIN B12 AND FOLATE 2020-10-01 04:42:00 Ford Espinoza [facility] IRON, TIBC, % SAT. 2020-10-01 04:42:00 [facility] 2020-10-01 04:42:00 Ford Espinoza [facility] COMPREHENSIVE METABOLIC 2020-10-01 02:44:00 Nate Fields [facility] CBC W/PLT COUNT & AUTO 2020-10-01 02:44:[address] [facility] DIFFERENTIAL [facility] SARS-COV2/RT-PCR ([facility] & 2020-10-01 02:44:[address] [facility] CBC W/PLT COUNT & AUTO 2020-09-30 20:01:[address] [facility] DIFFERENTIAL [facility] POCT-GLUCOSE METER 2020-09-30 20:00:00 Alice Jackson [facility] CBC (HEMOGRAM ONLY) 2020-09-30 15:15:00 Nate Fields [facility] POCT-GLUCOSE METER 2020-09-30 14:20:00 [facility] ABDOMEN LIMITED 2020-09-30 11:32:00 Ford Espinoza [facility] BLOOD CULTURE 2020-09-30 09:45:00 [facility] CBC W/PLT COUNT & AUTO 2020-09-30 09:22:00 [facility] 2020-09-30 09:22:00 [facility] LACTIC ACID, VENOUS 2020-09-30 09:22[facility] W/ REFLEX 2020-09-30 09:22:00 [facility] URINE CULTURE [facility] XR CHEST 1 VIEW 2020-09-30 08:39:00 Adrienne Ortiz Critical access hospital/BEDSIDE [facility] HEMOGLOBIN A1C 2020-09-30 06:52:00 Malcolm Hernandez [facility] POCT-GLUCOSE METER 2020-09-30 06:27:00 Ford Espinoza [facility] PROTHROMBIN TIME/INR 2020-09-30 06:22:00 Malcolm Hernandez CH, I [facility] APTT 2020-09-30 06:22:00 Malcolm Hernandez [facility] COMPREHENSIVE METABOLIC 2020-09-30 06:22:00 Malcolm Hernandez [facility] REPORT OF PROCEDURE - 2020-09-30 00:00:00 Provider, Default [facility]OSCOPY SCAN Scanning [facility] SARS-COV2/RT-PCR ([facility] & 2020-01-25 19:40:[address] [facility] - REF LABS) [facility] Plan of Care Planned Activity Planned Date Details Comments Source Future Scheduled 2020-07-[address] [facility] - Test 00:00:00 (12+) [code = Medical Center DEPRESSION SCREENING (12+)] Future Scheduled 2020-07-[address] [facility] 00:[facility]00 (WELCOME TO MEDICARE) Medica l Center [code = Medicare IPPE (WELCOME TO MEDICARE)] Future Scheduled 2002 SHINGLES VACCINES ([address] [facility] - Test 00:00:00 of 2) [code = Medical Center SHINGLES VACCINES (1 of 2)] Future Scheduled 1971-12-21 DTAP/TDAP/TD VACCINES [facility] - Test 00:00:00 (1 - Tdap) [code = Medical C enter DTAP/TDAP/TD VACCINES (1 - Tdap)] Future Scheduled [address] [facility] 00:[facility] [code = 198022821] Encounters Start End Encounter Admission Attending Care Care Encounter Source Date/Time Date/Time Type Type Clinicians Facility Department ID 2020-06-24 2020-06-[id number] 2020-06-03 2020-06-03 [facility] [id number] 2020-05-25 2020-05-25 [facility] [id number] [facility] 2020-05-13 2020-05-13 [facility] [id number] [facility] 2020-04-29 2020-04-29 [facility] [id number] [facility] 2020-04-15 2020-04-15 [facility] [id number] [facility] 2020-04-15 2020-04-15 Outpatient [facility] [id number] [facility] 2020-04-07 2020-04-07 [facility] [id number] [facility] 2020-03-26 2020-03-26 [facility] [id number] 09:10:00 09:10:00 [facility]pat[facility] Clin[facility] 2019-09-21 2019-09-21 [facility] [id number] 21:47:00 21:47:00 t [facility] Medicine Outpati ent Clinics 2019-09-19 2019-09-19 [facility] [id number] 13:30:00 13:30:00 t [facility] Medicine Outpati ent Clinics 2019-09-10 2019-09-10 [facility] [id number] 10:15:00 10:15:00 t [facility] Medicine Outpati ent Clinics 2019-06-20 2019-06-20 [facility] [id number] 13:20:00 13:20:00 t [facility] Medicine Outpati ent Clinics 2019-03-21 2019-03-21 [facility] [id number] 11:20:00 11:20:00 t [facility] Medicine Outpati ent Clinics Results Test Description Test Time Test Comments Results Result Comments Source Actin (Smooth Muscle) Antibody, IgG 2020-10-07 01:25:00 Test Item Value Reference Range Interpretation Comme nts Anti-Smooth Muscle <20 See Note: U Reference Range:<20 Ab (test code = NEGATIVE> OR = 20 POSITIVE ) Antibodies raad gnizing actin are the main compon entof smooth muscle antibodi es associated withautoimmune liver disease. Actin antibodie s arefound in approximately 7 5% of patients withautoimmune hepatitis (AIH) type 1, approxi jbpkoy35% of patients with a utoimmune cholangitis,chitra roximately 30% of patients with p rimary biliarycirrhosi s, and approximately 2 % of healthy people.High giulia ues are closely correlated with AIH type 1. ELIANA (test code = Performing Lab ELIANA) [facility] [address] [address] Obdulia Ulrich MD, PhD, MARINA [facility] Center[facility]erul[facility]min2021-03-24 14:07:00 Test Item Value Reference Range Interpretation Comments Ceruloplasmin (test code 39 mg/dL 18-36 H = 20190906) ELIANA (test code = ELIANA) Performing Lab *GIULIA [facility], [address] [place] [phone] Nereida Rocha MD Lab Interpretation (test Abnormal code = 45545-9) [facility] Center[facility]ochond[facility] M2 Antibody (IgG)2020-10-06 13:29:00 Test Item Value Reference Range Interpretation Comments Mitochondria M2 Ab 20.3 U See Note: H Reference (test code = 8927739) Range: NEGATIVE: < OR = 20.0EQUIVOCAL: 20.1-24.9POSITI VE: > OR = 25.0 ELIANA (test code = ELIANA) Performing Lab [facility] [address] [address] Obdulia Ulrich MD, PhD, MARINA Lab Interpretation Abnormal (test code = 21164-6) [facility] - Routine (Left Venipuncture) 2020-10-05 14:00:00 Test Item Value Reference Range Interpretation Comments Result (test code = No growth in 5 days 6463-4) [facility] CenterBLOOD [id number] 14:00:00 Test Item Value Reference Range Interpretation Comments CULTURE (BEAKER) (test No growth in 5 days code = 1095) BLOOD [id number] 11:00:00 Test Item Value Reference Range Interpretation Comments CULTURE (BEAKER) (test No growth in 5 days code = 1095) Hepatitis B PCR, [id number] 20:15:00 Test Item Value Reference Range Interpretation Comments HBV PCR, Quantitative HBV DNA not detected HBV DNA not (test code = 65459-4) detected ELIANA (test code = ELIANA) This test uses a Real-Time Polymerase Chain Reaction (RT-PCR) methodology and was performed using MADONNA AmpliPrep/MADONNA TaqMan HBV Test, v2.0 ([employer] Reportable range for this assay is 20 - 170,000,000 IU per mL (1.30 - 8.23 Log IU/mL). Lab Interpretation Normal (test code = 50452-7) [facility] PCR, [id number] 20:15:00 Test Item Value Reference Range Interpretation Comments HBV RESULT COMPONENT HBV DNA not detected HBV DNA not detected (BEAKER) (test code = 2701) This test uses a Real-Time Polymerase Chain Reaction (RT-PCR) methodology and was performed using [employer] AmpliPrep/[employer] TaqMan HBV Test, v2.0 ([employer]Reportable range for this assay is 20 - 170,000,000 IU per mL (1.30 - 8.23 Log IU/mL).Hepatitis C PCR, [id number] 19:56:00 Test Item Value Reference Range Interpretation Comments HCV PCR, Quantitative 030324 See_Comment H [Auto mated (test code = 41148-9) messag e] The system which generated this result transmitted reference range : <15 IU/mL. The reference range was not used to interpret this result as normal/abnormal . ELIANA (test code = ELIANA) This test uses a Real-Time Polymerase Chain Reaction (RT-PCR) methodology and was performed using [employer] Ampliprep/[employer] TaqMan HCV test kit version 2.0 ([employer] Reportable range for this assay is 15 - 100,000,000 IU per mL (1.18 - 8.00 Log IU/mL). Lab Interpretation Abnormal (test code = 06959-2) [facility] C PCR, [id number] 19:56:00 Test Item Value Reference Range Interpretation Comments HCV NUMERIC RESULT ([facility]) 352392 IU/mL <15 H (test code = 2700) This test uses a Real-Time Polymerase Chain Reaction (RT-PCR) methodology and was performed using [employer] Ampliprep/[employer]AD[employer]NA TaqMan HCV test kit version 2.0 ([employer]Reportable range for this assay is 15 - 100,000,000 IU per mL (1.18 - 8.00 Log IU/mL).Anti-Nuclear Antibody (GAMAL) 2020-10-04 12:41:00 Test Item Value Reference Range Interpretation Comments GAMAL (test code = 87086-9) Negative Negative ELIAAN (test code = ELIANA) Test performed by IFA method. Lab Interpretation (test Normal code = 69792-0) [facility] CenterANTI-NUCLEAR ANTIBODY (GAMAL)2020-10-04 12:41:00 Test Item Value Reference Range Interpretation Comments ANTI-NUCLEAR ANTIBODY (GAMAL) (AKER) Negative Negative (test code = 418) Test performed by IFA method.POC-Glucose [id number] 18:23:00 Test Item Value Reference Range Interpretation Comments POC-Glucose Meter (test 127 mg/dL 70-110 H : TE STED AT [facility] code = 1538) [address] [facility], 770 30: Safety Physician/Techni min ID = [id number] for Igbalajobi, She neto Lab Interpretation (test Abnormal code = 97953-5) [facility] CenterPOCT-GLUCOSE [id number] 18:23:00 Test Item Value Reference Range Interpretation Comments POC-GLUCOSE METER 127 mg/dL 70-110 H : [facility] ([facility]) (test code = [facility], 1538) [address]: Safety Physician/Techni min ID = [id number] for Igbalajobi, She nteo POCT-GLUCOSE [id number] 12:00:00 Test Item Value Reference Range Interpretation Comments POC-GLUCOSE METER 78 mg/dL 70-110 : [facility] ([facility]) (test code = [facility], 1538) [address]: Safety Physician/Techni min ID = [id number] for Igba Kassandra ventura Hepatitis B core antibody, [id number] 10:45:00 Test Item Value Reference Range Interpretation Comments Hep B Core Total Ab (test Reactive Nonreactive A code = 95343-2) ELIANA (test code = ELIANA) Safety Physician ID - DBOperator ID - DBOperator ID - DB Lab Interpretation (test Abnormal code = 83124-8) [facility] CenterHEPAT[facility]IS [facility] CORE ANTIBODY, [id number] 10:45:00 Test Item Value Reference Range Interpretation Comments HEPATITIS B CORE TOTAL ANTIBODY Reactive Nonreactive A (BEAKER) (test code = 497) Safety Physician ID - DBOperator ID - DBOperator ID - DBPOCT-GLUCOSE [id number] 08:50:00 Test Item Value Reference Range Interpretation Comments POC-GLUCOSE METER 83 mg/dL 70-110 : TESTED A T [facility] 67[address] (BEAKER) (test code = [place], 1538) [address]: Safety Physician/Techni min ID = [id number] for Kassandra Woods [id number] 08:30:00 Test Item Value Reference Range Interpretation Comments A-1 Antitrypsin (test 189.40 mg/dL 90-200 code = 1825-9) ELIANA (test code = ELIANA) Safety Physician ID - DBOperator ID - DBOperator ID - DB Lab Interpretation (test Normal code = 65075-2) [facility] [id number] 08:30:00 Test Item Value Reference Range Interpretation Comments ALPHA-1 ANTITRYPSIN (BEAKER) 189.40 mg/dL 90.00-200.00 (test code = 502) Safety Physician ID - DBOperator ID - DBOperator ID - DBHepatitis A antibody, IgG 2020-10-03 07:01:00 Test Item Value Reference Range Interpretation Comments Hep A IgG (test code = Reactive Nonreactive A 33869-5) ELIANA (test code = ELIANA) Safety Physician ID - DB Lab Interpretation (test Abnormal code = 40536-0) [facility] CenterHEPATITIS A ANTIBODY, [id number] 07:01:00 Test Item Value Reference Range Interpretation Comments HEPATITIS A IGG ANTIBODY (BEAKER) Reactive Nonreactive A (test code = 2797) Safety Physician ID - DBHepatitis C [id number] 06:59:00 Test Item Value Reference Range Interpretation Comments Hepatitis C Ab (test code = Reactive Nonreactive A 86418-4) ELIANA (test code = ELIANA) Safety Physician ID - DB Lab Interpretation (test Abnormal code = 66671-4) [facility] CenterHEPATITIS C [id number] 06:59:00 Test Item Value Reference Range Interpretation Comments HEPATITIS C ANTIBODY (BEAKER) (test Reactive Nonreactive A code = 367) Safety Physician ID - DBBasic Metabolic [id number] 06:38:00 Test Item Value Reference Range Interpretation Comments Sodium (test code = 132 meq/L 136-145 L 2951-2) Potassium (test code = 3.8 meq/L 3.5-5.1 2823-3) Chloride (test code = 106 meq/L 98-107 2075-0) CO2 (test code = 17 meq/L 22-29 L 2028-9) BUN (test code = 36 mg/dL 7-21 H 3094-0) Creatinine (test code 1.77 mg/dL 0.57-1.25 H = 2160-0) Glucose (test code = 87 mg/dL 70-105 2345-7) Calcium (test code = 7.8 mg/dL 8.4-10.2 L 19115-9) EGFR (test code = 39 mL/min/1.73 [place] [address]-9) NOT ACCURATE CREATININE CLEARANCE IN PREDICTING GLOMERULAR FILTRATION RATE . ESTIMATED GFR I S NOT APPLICABLE FOR DIALYSIS PATIENTS. ELIANA (test code = ELIANA) Safety Physician ID - EDASI Lab Interpretation Abnormal (test code = 79926-8) [facility] CenterBilirubin, [id number] 06:38:00 Test Item Value Reference Range Interpretation Comments Bilirubin, Direct (test 0.2 mg/dL 0.1-0.5 code = 1968-7) ELIANA (test code = ELIANA) Safety Physician ID - EDASI Lab Interpretation (test Normal code = 01206-6) [facility] CenterBILIRUBIN, [id number] 06:38:00 Test Item Value Reference Range Interpretation Comments BILIRUBIN DIRECT (BEAKER) (test 0.2 mg/dL 0.1-0.5 code = 706) Safety Physician ID - EDASIBASIC METABOLIC [id number] 06:38:00 Test Item Value Reference Range Interpretation Comments SODIUM (BEAKER) 132 meq/L 136-145 L (test code = 381) POTASSIUM (BEAKER) 3.8 meq/L 3.5-5.1 (test code = 379) CHLORIDE (BEAKER) 106 meq/L 98-107 (test code = 382) CO2 (BEAKER) (test 17 meq/L 22-29 L code = 355) BLOOD UREA NITROGEN 36 mg/dL 7-21 H (BEAKER) (test code = 354) CREATININE (BEAKER) 1.77 mg/dL 0.57-1.25 H (test code = 358) GLUCOSE RANDOM 87 mg/dL 70-105 (BEAKER) (test code = 652) CALCIUM (BEAKER) 7.8 mg/dL 8.4-10.2 L (test code = 697) EGFR (BEAKER) (test 39 mL/min/1.73 ESTIMA ALTAGRACIA GFR IS code = 1092) sq m NOT ACCURATE CREATININE CLEARANCE IN PREDICTING GLOMERULAR FILTRATION RATE . ESTIMATED GFR I S NOT APPLICABLE FOR DIALYSIS PATIEN TS. Safety Physician ID - EDASIHepatitis B surface [id number] 06:14:00 Test Item Value Reference Range Interpretation Comments Hep B S Ab (test code <8.0 See_Comment [Auto mated = 59076-4) message] The system which generated this result transmit altagracia reference range : <8.0 mIU/mL. Th e reference range was not used to interpret this result as normal/abnormal . ELIANA (test code = ELIANA) Safety Physician ID - DB Lab Interpretation Normal (test code = 29882-1) [facility] [id number] 06:14:00 Test Item Value Reference Range Interpretation Comments HEPATITIS B SURFACE ANTIBODY < mIU/mL <8.0 (BEAKER) (test code = 647) Safety Physician ID - DBHepatitis B surface atmsajy5013-33-48 06:13:00 Test Item Value Reference Range Interpretation Comments HBsAg Screen (test code Nonreactive Nonreactive = 5195-3) ELIANA (test code = ELIANA) Specimen is considered negative for HBsAg. Lab Interpretation (test Normal code = 45045-7) [facility]AFP[facility] tumor [id number] 06:13:00 Test Item Value Reference Range Interpretation Comments Alpha-Fetoprotein (test code 2.1 ng/mL <10.0 = 1834-1) ELIANA (test code = ELIANA) Safety Physician ID - DB Lab Interpretation (test Normal code = 58933-3) [facility] [id number] 06:13:00 Test Item Value Reference Range Interpretation Comments HEPATITIS B SURFACE ANTIGEN (2) Nonreactive Nonreactive (BEAKER) (test code = 2585) Specimen is considered negative for HBsAg.ALPHA FETOPROTEIN (AFP), TUMOR MARKER 2020-10-03 06:13:00 Test Item Value Reference Range Interpretation Comments ALPHA-FETOPROTEIN (BEAKER) (test 2.1 ng/mL <10.0 code = 1094) Safety Physician ID - DBProthrombin time/LYO1606-50-67 05:06:00 Test Item Value Reference Interpretation Comments Range Protime (test code = 14.4 See_Comment H [Autom ated 5562-2) message] The system which generated this result transmitted reference range : 11.9 - 14.2 seconds. The reference range was not used to interpret this result as normal/abnormal . INR (test code = 1.16 See_Comment [Automated 5651-6) message] The system which generated this result transmitted reference range : <=5.90. The reference range was not used to interpret this result as normal/abnormal . ELIANA (test code = Effective 12/11/2018: ELIANA) PT Reference Range ChangeNew: 11.9-14.2 Previous: 11.7-14.7 RECOMMENDED COUMADIN/WARFARIN INR THERAPY RANGESSTANDARD DOSE: 2.0-3.0 Includes: PROPHYLAXIS for venous thrombosis, systemic embolization; TREATMENT for venous thrombosis and/or pulmonary embolus.HIGH RISK: Target INR is 2.5-3.5 for patients wiht mechanical heart valves. Lab Interpretation Abnormal (test code = 77210-6) [facility] CenterPROTHROMBIN TIME/[id number] 05:06:00 Test Item Value Reference Range Interpretation Comments PROTIME (BEAKER) 14.4 seconds 11.9-14.2 H (test code = 759) INR (BEAKER) (test 1.16 See_Comment [Automat ed message] code = 370) The system [employer] generated this result transmitted ref erence range: <=5.90. The reference range was not used to int erpret this result as normal/abnormal . Effective 12/11/2018: PT Reference Range ChangeNew: 11.9-14.2 Previous: 11.7- 14.7RECOMMENDED COUMADIN/WARFARIN INR THERAPY RANGESSTANDARD DOSE: 2.0-3.0 Includes: PROPHYLAXIS for venous thrombosis, systemic embolization; TREATMENT for venous thrombosis and/or pulmonary embolus.HIGH RISK: Target INR is2.5-3.5 for patients wiht mechanical heart valves.CBC (Hemogram only)2020-10-03 04:58:00 Test Item Value Reference Range Interpretation Comments WBC (test code = 6690-2) 8.8 See_Comment [A utomated message] The system [employer] generated this result transmitted ref erence range: 3.5 - 10 .5 K/L. The refe rence range was not u sed to interpret this result as normal/abnor mal. RBC (test code = 789-8) 2.56 See_Comment L [Au tomated message] The system [employer] generated this result transmitted ref erence range: 4.63 - 6 .08 M/L. The refe rence range was not u sed to interpret this result as normal/abnor mal. MCHC (test code = 786-4) 31.8 See_Comment L [A utomated message] The system [employer] generated this result transmitted ref erence range: 32.3 - 3 6.5 GM/DL. The refe rence range was not u sed to interpret this result as normal/abnor mal. Hematocrit (test code = 22.3 % 40.1-51 L 4544-3) MCV (test code = 787-2) 87.1 fL 79-92.2 MCH (test code = 785-6) 27.7 pg 25.7-32.2 RDW (test code = 788-0) 12.7 % 11.6-14.4 Platelets (test code = 172 See_Comment [Aut omated message] 277-3) The system [employer] generated this result transmitted ref erence range: 150 - 45 0 K/CU MM. The referen ce range was not u sed to interpret this result as normal/abnor mal. MPV (test code = 10.2 fL 9.4-12.4 72499-1) nRBC (test code = 413) 0 See_Comment [Aut omated message] The system [employer] generated this result transmitted ref erence range: 0 - 0 /1 00 WBC. The refere nce range was not u sed to interpret this result as normal/abnor mal. Lab Interpretation (test Abnormal code = 29491-8) [facility] with platelet count + automated [id number] 04:58:00 Test Item Value Reference Range Interpretation Comments WBC (test code = 6690-2) 8.8 See_Comment [A utomated message] The system [employer] generated this result transmitted ref erence range: 3.5 - 10 .5 K/L. The refe rence range was not u sed to interpret this result as normal/abnor mal. RBC (test code = 789-8) 2.56 See_Comment L [Au tomated message] The system [employer] generated this result transmitted ref erence range: 4.63 - 6 .08 M/L. The refe rence range was not u sed to interpret this result as normal/abnor mal. MCHC (test code = 786-4) 31.8 See_Comment L [A utomated message] The system [employer] generated this result transmitted ref erence range: 32.3 - 3 6.5 GM/DL. The refe rence range was not u sed to interpret this result as normal/abnor mal. Hematocrit (test code = 22.3 % 40.1-51 L 4544-3) MCV (test code = 787-2) 87.1 fL 79-92.2 MCH (test code = 785-6) 27.7 pg 25.7-32.2 RDW (test code = 788-0) 12.7 % 11.6-14.4 Platelets (test code = 172 See_Comment [Aut omated message] 777-3) The system [employer] generated this result transmitted ref erence range: 150 - 45 0 K/CU MM. The referen ce range was not u sed to interpret this result as normal/abnor mal. MPV (test code = 10.2 fL 9.4-12.4 24159-7) nRBC (test code = 413) 0 See_Comment [Aut omated message] The system [employer] generated this result transmitted ref erence range: 0 - 0 /1 00 WBC. The refere nce range was not u sed to interpret this result as normal/abnor mal. % Neutros (test code = 80 % 429) % Lymphs (test code = 10 % 430) % Monos (test code = 8 % 431) % Eos (test code = 432) 1 % % Baso (test code = 437) 0 % # Neutros (test code = 7.03 See_Comment H [Aut omated message] 670) The system [employer] generated this result transmitted ref erence range: 1.78 - 5 .38 K/L. The refe rence range was not u sed to interpret this result as normal/abnor mal. # Lymphs (test code = 0.86 See_Comment L [Auto mated message] 414) The system [employer] generated this result transmitted ref erence range: 1.32 - 3 .57 K/L. The refe rence range was not u sed to interpret this result as normal/abnor mal. # Monos (test code = 0.72 See_Comment [Autom ated message] 415) The system [employer] generated this result transmitted ref erence range: 0.30 - 0 .82 K/L. The refe rence range was not u sed to interpret this result as normal/abnor mal. # Eos (test code = 416) 0.12 See_Comment [Au tomated message] The system [employer] generated this result transmitted ref erence range: 0.04 - 0 .54 K/L. The refe rence range was not u sed to interpret this result as normal/abnor mal. # Baso (test code = 417) 0.02 See_Comment [A utomated message] The system [employer] generated this result transmitted ref erence range: 0.01 - 0 .08 K/L. The refe rence range was not u sed to interpret this result as normal/abnor mal. Immature 1 % 0-1 Granulocytes-Relative (test code = 2801) Lab Interpretation (test Abnormal code = 74051-4) [facility] W/PLT COUNT & AUTO [id number] 04:58:00 Test Item Value Reference Range Interpretation Comments WHITE BLOOD CELL COUNT (BEAKER) 8.8 K/ L 3.5-10.5 (test code = 775) RED BLOOD CELL COUNT (BEAKER) 2.56 M/ L 4.63-6.08 L (test code = 761) HEMOGLOBIN (BEAKER) (test code = 7.1 GM/DL 13.7-17.5 L 410) HEMATOCRIT (BEAKER) (test code = 22.3 % 40.1-51.0 L 411) MEAN CORPUSCULAR VOLUME (BEAKER) 87.1 fL 79.0-92.2 (test code = 753) MEAN CORPUSCULAR HEMOGLOBIN 27.7 pg 25.7-32.2 (BEAKER) (test code = 751) MEAN CORPUSCULAR HEMOGLOBIN CONC 31.8 GM/DL 32.3-36.5 L (BEAKER) (test code = 752) RED CELL DISTRIBUTION WIDTH 12.7 % 11.6-14.4 (BEAKER) (test code = 412) PLATELET COUNT (BEAKER) (test 172 K/CU MM 150-450 code = 756) MEAN PLATELET VOLUME (BEAKER) 10.2 fL 9.4-12.4 (test code = 754) NUCLEATED RED BLOOD CELLS 0 /100 WBC 0-0 (BEAKER) (test code = 413) NEUTROPHILS RELATIVE PERCENT 80 % (BEAKER) (test code = 429) LYMPHOCYTES RELATIVE PERCENT 10 % (BEAKER) (test code = 430) MONOCYTES RELATIVE PERCENT 8 % (BEAKER) (test code = 431) EOSINOPHILS RELATIVE PERCENT 1 % (BEAKER) (test code = 432) BASOPHILS RELATIVE PERCENT 0 % (BEAKER) (test code = 437) NEUTROPHILS ABSOLUTE COUNT 7.03 K/ L 1.78-5.38 H (BEAKER) (test code = 670) LYMPHOCYTES ABSOLUTE COUNT 0.86 K/ L 1.32-3.57 L (BEAKER) (test code = 414) MONOCYTES ABSOLUTE COUNT (BEAKER) 0.72 K/ L 0.30-0.82 (test code = 415) EOSINOPHILS ABSOLUTE COUNT 0.12 K/ L 0.04-0.54 (BEAKER) (test code = 416) BASOPHILS ABSOLUTE COUNT (BEAKER) 0.02 K/ L 0.01-0.08 (test code = 417) IMMATURE GRANULOCYTES-RELATIVE 1 % 0-1 PERCENT (BEAKER) (test code = 2801) CBC (HEMOGRAM ONLY)2020-10-03 04:58:00 Test Item Value Reference Range Interpretation Comments WHITE BLOOD CELL COUNT (BEAKER) 8.8 K/ L 3.5-10.5 (test code = 775) RED BLOOD CELL COUNT (BEAKER) 2.56 M/ L 4.63-6.08 L (test code = 761) HEMOGLOBIN (BEAKER) (test code = 7.1 GM/DL 13.7-17.5 L 410) HEMATOCRIT (BEAKER) (test code = 22.3 % 40.1-51.0 L 411) MEAN CORPUSCULAR VOLUME (BEAKER) 87.1 fL 79.0-92.2 (test code = 753) MEAN CORPUSCULAR HEMOGLOBIN 27.7 pg 25.7-32.2 (BEAKER) (test code = 751) MEAN CORPUSCULAR HEMOGLOBIN CONC 31.8 GM/DL 32.3-36.5 L (BEAKER) (test code = 752) RED CELL DISTRIBUTION WIDTH 12.7 % 11.6-14.4 (BEAKER) (test code = 412) PLATELET COUNT (BEAKER) (test 172 K/CU MM 150-450 code = 756) MEAN PLATELET VOLUME (BEAKER) 10.2 fL 9.4-12.4 (test code = 754) NUCLEATED RED BLOOD CELLS 0 /100 WBC 0-0 (BEAKER) (test code = 413) POCT-GLUCOSE [id number] 21:32:00 Test Item Value Reference Range Interpretation Comments POC-GLUCOSE METER 128 mg/dL 70-110 H : TESTED A T [facility] (BEAKER) (test code = [place], 1538) [address]: Safety Physician/Techni min ID = [id number] for Lien Mansfield Vancomycin level, [id number] 18:09:00 Test Item Value Reference Range Interpretation Comments Vancomycin Tr (test code 6.3 ug/mL -20 L = 4092-3) ELIANA (test code = ELIANA) Safety Physician ID - DBIf vancomycin trough level > 20 mcg/mL, hold next vancomycin dose, and contact MD and pharmacist. Lab Interpretation (test Abnormal code = 30649-2) [facility] [id number] 18:09:00 Test Item Value Reference Range Interpretation Comments VANCOMYCIN TROUGH (BEAKER) (test 6.3 ug/mL 10.0-20.0 L code = 522) Safety Physician ID - DBIf vancomycin trough level > 20 mcg/mL, hold next vancomycin dose, and contact MDand pharmacist.CBC W/PLT COUNT & AUTO DIFFERENTIAL 2020-10-02 17:51:00 Test Item Value Reference Range Interpretation Comments WHITE BLOOD CELL COUNT (BEAKER) 10.3 K/ L 3.5-10.5 (test code = 775) RED BLOOD CELL COUNT (BEAKER) 2.72 M/ L 4.63-6.08 L (test code = 761) HEMOGLOBIN (BEAKER) (test code = 7.5 GM/DL 13.7-17.5 L 410) HEMATOCRIT (BEAKER) (test code = 23.6 % 40.1-51.0 L 411) MEAN CORPUSCULAR VOLUME (BEAKER) 86.8 fL 79.0-92.2 (test code = 753) MEAN CORPUSCULAR HEMOGLOBIN 27.6 pg 25.7-32.2 (BEAKER) (test code = 751) MEAN CORPUSCULAR HEMOGLOBIN CONC 31.8 GM/DL 32.3-36.5 L (BEAKER) (test code = 752) RED CELL DISTRIBUTION WIDTH 12.9 % 11.6-14.4 (BEAKER) (test code = 412) PLATELET COUNT (BEAKER) (test 178 K/CU MM 150-450 code = 756) MEAN PLATELET VOLUME (BEAKER) 10.2 fL 9.4-12.4 (test code = 754) NUCLEATED RED BLOOD CELLS 0 /100 WBC 0-0 (BEAKER) (test code = 413) NEUTROPHILS RELATIVE PERCENT 83 % (BEAKER) (test code = 429) LYMPHOCYTES RELATIVE PERCENT 8 % (BEAKER) (test code = 430) MONOCYTES RELATIVE PERCENT 7 % (BEAKER) (test code = 431) EOSINOPHILS RELATIVE PERCENT 1 % (BEAKER) (test code = 432) BASOPHILS RELATIVE PERCENT 0 % (BEAKER) (test code = 437) NEUTROPHILS ABSOLUTE COUNT 8.60 K/ L 1.78-5.38 H (BEAKER) (test code = 670) LYMPHOCYTES ABSOLUTE COUNT 0.79 K/ L 1.32-3.57 L (BEAKER) (test code = 414) MONOCYTES ABSOLUTE COUNT (BEAKER) 0.77 K/ L 0.30-0.82 (test code = 415) EOSINOPHILS ABSOLUTE COUNT 0.11 K/ L 0.04-0.54 (BEAKER) (test code = 416) BASOPHILS ABSOLUTE COUNT (BEAKER) 0.02 K/ L 0.01-0.08 (test code = 417) IMMATURE GRANULOCYTES-RELATIVE 1 % 0-1 PERCENT (BEAKER) (test code = 2801) POCT-GLUCOSE [id number] 17:36:00 Test Item Value Reference Range Interpretation Comments POC-GLUCOSE METER 124 mg/dL 70-110 H : TESTED A T [facility] (BEAKER) (test code = [place], 1538) [address]: Safety Physician/Techni min ID = [id number] for Jaswinder [facility] Tissue [id number] 14:24:00 Test Item Value Reference Range Interpretation Comments Case Report (test code Surgical Pathology = 104) Report Case: [id number] Authorizing Provider: Sarkis Laboy, Collected: 10/01/2020 09:43 AM Ordering Location: [place] [address] ccu Received: 10/01/2020 01:48 PM Pathologist: Pa Peters MD Specimens: A) - Biopsy, Gastric, random biopsy B) - Gastric, gastric erythema biopsy DIAGNOSIS (test code = [id number] 3220) FuZzEwMzNcZnRuYmpcdWMx IHtccnRmMVxlcGljOTIwMl oozzMqHIKnsCPhW7Mysyfy NQdsCZ6pZX3jfKebxMAsvH WqNRNkRiRvp2mis138oAUy w4crTCQTrdpmuSy3tJkxJ1 7sb7K6JvcuN18ucVGvHUem bGFpblxmczIwIEEuIFNUT0 8YY1cvILOXRqHRZJXKOrTA J4NXTHfZDF1HX18BSDquRu sZPHDLFUT6SCAsyil0RXYy WQQFKoQEMQpjBDGNV6RXVZ dJVEggTUlMRCBDSFJPTklD GZbQHWAPQBUTVUzOH1JFDA SEKhACKxJuTr9CCTuzNL5C SCZLNT5OWPZXPOUSRBeOY7 sYIHVhihp6RJOjFZOAGCpT TApRJY6HV43RBJQUCTSHSM 0YUTMrY4gDQ02EMtPABmOY VElWRSBHQVNUUklUSVMgV0 zGEEGVT6TODBZZG8JHYgjZ PRfiZIDsoVHlSL0pN6SWDJ nAFnQDBGJJVtstP4JHGT8g SvBFDLCADjNgOe1SCWpoAD MLXY2XYXJCTKeLZN1SM0HA EISKC2bkLSFtgNLxEA9lVk PPPDMWQaOxJk6IBOSYA0DU BFXDMEIPPjESINTJWE7XWU UmkIQcCNRscdFQQzDJGT0R QUNILCBFUllUSEVNQSwgRU 5EK6JTO0HRLpIHEICBE3QF QLDOZ4WSOEPGEqutUELcyP WzQY1dR7wYLhKUBtMNSUKP L9LrZ4qNCGFHMPbYECEEVp 6XHVSrHQ4GZ2YFFcKgK3LK VFJJVElTIEFORCBWRVJZIE LPO0TOWTAAXUtOWPQHANKb ciAgICAgICAgICAgICAgLS PZMX3KGvHqVHLYGHEFPRCX P02APKTDHR4YNNDXGCHROK JUTFkgREVOVURFRCBXUElU FWXAWXBFEFIdrkp6DNScIU BXQVJUSElOIFNUQVJSWSBT VEFJTiBORUdBVElWRSBGT1 ViZS8cGKzLA5YSAYmRU5If K7CGKQ2XY48SZBDpokc7HI YgGLYQVDsZYWvPEAUCI6Nj FW4ROOCOSN8NUWICASRTMH xCN3gDCUTLRNJJABHWBQUl H3XaT6GBY9iDM09MIJIbuf 99VZM5JyKte5R2HPS3CHSr FRVkn4ipUDByrIHeNqJtBr NcZnRuYmpcdWMxXGRlZmYw u6ecd043oTOkl1dtPBTgEo G0tOIaKKWuvZMsT760BBLz VKwin9toq4RjTERxiDOyd6 D1LRWVfxyuyEa6eQwtX99t n8N3HyztI7ocQDDgVCSiC7 WtIS7iYBDuOgo9EHM5YTE9 XZFqWBGxD5JwYJ3hHHClkV QsFMm6m3uaqEpkWJHuONS6 f5qjBSpoydCeKN8cca1nvL y4m4sowuJeGKHoDRGtrNNN KRFhW8AzqJkzAf2zdOk8mM moKymaOEK7Mcl2FG0vmf74 wwf8yLecKIMaltelSlK8RM fuBVIozhriQTe8GXwmRPBe qGG4QQFurFMgC6EoZSSoTC 3xbcp0OKK2RKndPCNnGyQ6 NDBcaGVhZGVyeTcyMFxmb2 70FWG8VeLuQV4wY3Pun9R1 mB7okVFgHGCcyTWdVyFrJK Mrux1qpVQmCYvlt2BtGQI4 jmG7oTCavORbFZPkRiV2OC wvGE9pif26QGZhQVX9db9j bGNccGdicmRyaGVhZFxwZ2 GzYXLsu923ZNJiR6VpYEEr u3X0pqWjKlYwLZKnmOO3ck G7JXPjOL5poaxsl8rmLKtf NImiQMFwpgS0snQ2NDRqtZ OeI0BgzF2hXSYlXX6nkvtb e9zwDTM3MZdaETJbLGU5Ty GgSCQna3Msudx9MuXvb1Jp eOMxQDahW15xf701VOKogq DfA5hfnZUctfogdANhcawv LWfynrN5BBKsGAwhymguHX EqBDdvY6fiOlOmPOLfjZfy DFfkl8ByCQPyRORgShXatL OaLLChUmx1AMKixJPkIRPw WpPcQ0tqjiirXzOYSAXyg5 ycY6gyzGOSfGLwX9QdPVza pxGzJVrgLOdlBDQzTHT6SA 35RSinCOVlrj76 CPT Code(s) (test code o4zzgZQxMJZqtDE7WwXaVF = 3357) Fcm3tmd3WkkPUtmUUtGGfh gNNgmyLgmh73wJY5vV56VG 0mXDLmFdX9ESScnpF3Enr5 ULJpJSXnaZXyD300p8tgt1 uwcxGyfQX8rSsvRODoFTVs YWluXGZzMjAgODgzMDUgWC ZaCSD8LSRcKtPVIlwoWRF7 CLINICAL HISTORY (test y7nsgRMaRZXinZV3HlCiYA code = 3356) Beg2shl4MgkVRwrOEgLLwq lFZwsoUcfp74yHY1iN84KI 4dVCMsZsD3KCKkqrV8Lxi9 IGLgNMIfqNEmT382o1mas7 yopfHznUS8qVonWCOcFPVz YLgwIHEpUhPfvGLbBK9dRH Bhcn0= SPECIMEN SOURCE (test w5xopAAhJFZgeAD7NnQnGI code = 3377) Efe2zlf4JqcHFdoKLcPTno kQGeimXnkq98rUD2nO66XM 7mEVPaMnL9SYWwshV3Zke4 FYMcXFHpbACwS034t7vfg6 bgelSdcFB0dQydSMMxMYDd MAogKRBnHxNnQC9nZUdct7 EarHCazZjqDSNCMkDbE3An xCRfX3njDYU8 GROSS DESCRIPTION (test m6idzEDmWWJxzYXiDoSpOM code = 3366) GjSPSdn9imBHVtgTMsAwXm MzNcZnRuYmpcdWMxXGRlZm Xzh6zov761nMUcp0mkKFYo QvQ5rMLzFKMdjKZwP285n9 hzm9nprrTfeXA8MEPhJHU8 QRvrukVmpiV2BVmxdVMvQj D4LOroyiPnWTnmayWdprJi Gfx5ZDRrA774TUB6pZxac5 afVUO4OZPuDOTeXySyOc3i uTPwW717EOQaOZWNCZUvpU y4KAUkicTfjdIzcFVMh303 O189r0jeYRBjeiLozLlYrj txm5skR823HDWhxNLqfaLr LaJnGDChyPGhvBK4UAHbDD 5rcjabRxZbEN9umpwzXkHi ZO8lvei2DlCnJH1yxhbrCj AlNQfhYMBuoymeTITna6Np nsioRR8nP9Mgo0T7zL3yaY GlFRTlmDZuFhJrJJDzkv6i xRKuXHojn6AdCXE7saK9zZ BlrSCwTZKbDU60Ibjvj8Ec OkwgPRO1CPQabjYbd9Ueh3 unToOrzoSoT0lcJ8YcVZLo ETXoPXBgKzImhiZpy9Jlk5 TvrSRbrJy0g1mtYSEdCAMx sUqre2xaXAS5TJPfD6D5wJ Yqf7sgCQgqLVFxfCO3yaon WXidOTWfcxC3ikveNVkoCX CumCZ4izzdXGfwCMBxDaV6 kcavQOcpSLQwHBK2LLyql2 61INX3HBtsDhviCMxtDJGj bmNvbnRccGduZGVjXHBsYW luXHBsYWluXGYwXGZzMjRc iGbxhXtrsP6xCdOgLcSgVR xxRV4uDTYtC1kciHTnZJIg EVRkY4xbSrWdpF9mbZltNO xmczIwIEEuICBSZWNlaXZl TUBktyVpw6InMUegftBxET EjzINkZHDbPGJfXXMcPY60 Q1KanwTcOPrsCCHaHUZppY 8rKI19fDSwljOatoSlQpqx e2IssHKpGdqrlZY4UaSerb YsSNJ9WZ0diVjsfcC0vCKg tZBuEjEeY01iezOsWQ0dNL Z9ouivInE1vEM0pvYlLqPl Y18mzK8rH3LfRUUit6HpTB qqAX8etW8uLDvwkBFrILWj VRFbkYo7YMIaFPDdnvPii7 VgaKm3cQOzWAndVGJtoE7e qS6hCRKsKMCvztisXJSbZs 4vABFdG8HmdoSjWTvtLVCh sn3prCjlQGquPkNjPOMhpB gsBRPblUypmrArnkUuPP1m ZCSnC3Byp6Lid14zonFjDr BiJOXbFLDeU4HghSTzYhOj aXMgYSAwLjIgeCAwLjIgeC HxRpUhS43mjZPeSORlksdq kJafp6WyUHStEQtlWW01EL doaWNoIGlzIGZpbHRlcmVk UWIoLOXkwULrfEK7EDLqtT 0yeU11ojKxmpFSTS2fzXPp HUUwwaZGvRhdonSPixd6DJ xsZXMsIFBBLCBIVCAoQVND UClccGFyfQ== MICROSCOPIC DESCRIPTION f5ecaCXyVFZijBS5KqKnBE (test code = 3371) Qfa8nan3XckVZlcLVfIYve wOXlpwHfyk52vMM4eL98XZ 4uNRLdJiC1LWAsxxN3Imy3 WHOaJWYjdWDbG609y2oii2 axpnNjvOD2jXnxHBQtCSPt NLksSOZqFjWjXZOzFo3jqW VkLlxwYXJ9 SPECIAL STUDIES (test n3kbeGPhNBGdm7kgAAAizN code = 3376) FuZzEwMzNcZnRuYmpcdWMx QPizrgKzNSkzy4IcA0YyGl AwMFxhbnNpXGRlZmxhbmcx IWVkISK4eoXpLNZzDMnqAB GbZAbbTf1agRTylShiKkJc XBAys3lxkuJDzkbyaNc6h9 ewOPNcSaE3oPNwLGjeC4xl bhTpvISdQ7LbnPHviSp8v0 wzUbWyIhU2pXQbFXklE6wi oqPraGLaVCMxZHj6uX84UQ BreL1kjZHcRJvcifLeShK6 LIgsIDCnZeO6DSPnnSIuHG TnE1wvPBRjTMecDRIjUXov oUMoTGL6hEyci8G1eALraR NwxIvuQuKtFkUlFhJOb4Bh ZKo3sRmzE7VvJZQcXjJ5kX QgUGFyYWdyYXBoIEZvbnQ7 bSmvswZbn14cePLsKVBtCU SxAmEfuQwxSPTzWXDKc3Us wGrzLAO7yIb3uLeeZfokKX U0Tot9LQ2zpt85mxy3zBpg QITtvoxfQoC2WPnqGQNygy olFMf0TWryNMDemQB5WBXw yVEdH6LiJVUvSL0wxsc9GY J2TSpfOVMeQqJ5KPCasXJr RLHhxPqgLEsmr629ZRM8Jc EtHU0fV1Sim4H8cR1inCVg OGSaqCRfDrUiYNLhfa1lnS ZvLGsoa0BvBZQ9oxC0zDPs mABrGIBkMA47Cufeo8MzOj cck0YoN51ezLO0VXybg3ut QY4gWhJ5yfVgLNlqc2lptV 6wPoD0NDqhNR1aFS9yLWEw pL8esctoWSUzHgLklzmlZV QoxJcqyfEbHe4ifGdhVEG5 DHjsD0fcyT8xSvP7AIdcW2 hexD7tKYz0LMpzhGB0LLMu bD9lIK3wctqrn5jnMTcrFN trFHFowgE4ccB0DUAhgUAu P6WisQ6vSMGgWM0zqgiob6 rxCPA4IOvqECZrJWN3QrQb LMZdu6Yrzmb1IvNtj3ZudZ LcCFriR53jp962SONnrqNr I9xxaIAjojiihXQomuuhTZ chepO5OLYlTMVgDCrvHXHc XGZzMjJcbGFuZzEwMzNcaG ljaFxmMVxkYmNoXGYxXGxv K8wuCsKxL2WaWVVtGlVhDO xzHEcmyYKpcDHpaNN0xI8v RZ8fVUEorGMiK2AcCKHvee IbaCGlXPX7mUSpuGWvBC7b KDlqeASzh4ucf9SoY6nwrS pieTS8NK7lIWImDSVzHEgp y8KbsS2sTsehzKGlrrrfJY xmczIyXGxhbmcxMDMzXGhp M2dcLyOmCVMzuEweGTgnc7 NoXGYxXGNmMlxmczIyXGx0 cmNoXHBhclxwYXJccGxhaW 7pUlSeQaEwYkkdFM3xABFr J8mzaLQqIEXbMWXmY5vgTp QwnN5cvYuoQCniWpJwJmFq CoIZi970bt0mQAAicASjvy QTxEOjiT7zBKexPUqaWPvc nQFpUHqti5glVUDlt5r3uZ SwLBMszyHas9vzICfwygAj QVPrhZOiuIRnETIlf55kMU ajjYzboCgiXWLhv8WvnGhy r7RjDhOdCHdgg1WsV93swU JvbCBzbGlkZXMgcnVuIGFs q72by2tpQNUfZsU8eEZlzK D9jLHsfHHsl7BaaFbxYTOy y5ifQBCdbw6yzyaahPNzz5 ZgqM0qtoxsKVhkqZDegkCm GEZpw3g6xQRjSISvEQXiQP odiNl5XPTcx448ok9bgkW1 iSIxANZ7TXfvFNYrUDXpxl UgZXZhbHVhdGVkXHBsYWlu XGYxXGZzMjJcbGFuZzEwMz NcaGljaFxmMVxkYmNoXGYx FDpvJ3vwHaJmG4JlORCcWq KxnPHkJ6sryYVaJUQuDXrc XGYxXGZzMjJcbGFuZzEwMz NcaGljaFxmMVxkYmNoXGYx SFwaS4tzOhLlK0PrSCXoFb IgIFxwbGFpblxmMVxmczIy XNbyegnrRLViRXhqA9ocWy XsQPFrpWclWKwtn4FaFPSv XTDdAgjnnyYdSXq0snKvVU BhclxwbGFpblxmMVxmczIy MXkcubutGUPoLShtP6asVk SdNBCkgOquGQjgh6JrXESw XGNmMlxmczIyIEltbXVub2 pny7ReK9zyhBargZU3TACx Z8xzbCBemYW2KQW1oQ4tFM nftfVlRAZxk9RsBRHlRFJd XpG7xM7yANM7OsHQaJblLN BsYWluXGYxXGZzMjJcbGFu ZzEwMzNcaGljaFxmMVxkYm HeKLNoRDagJ7lkNzXsP7Iv NZMkJfGkpGqwRPneVTa2Hl xwbGFpblxmMVxmczIyXGxh owiwBBQuORdqD2lmPaIyEB OynQqjNIwon2AwXUQqFGVk MlxmczIyIHMgTWVkaWNhbC KCSX30UXSvUOAcjShmuU2c fZKMWXPytaH8a9C3QJukZO MaSBw6UDkjerUmZNHmjL8t YWHgEY3bLVu3igAoLKMpt8 DpSK1iHMHhdPApTXL5COIn w2QfR0Gsa1LzZCHzABOope 2gqaZwEyLSbYJlBPNnwp82 UPSwEP4xC6smVXUgXGTwos FqmGNfe4KuIJKzvCP9kBGx NK3MFlCTa12xYAOpLTBZgb HiNGWdbVruwCW8dhF5mF9y LiBUaGUgRkRBIGhhcyBkZX Fdtu3zpnPsIUFtELQax7Uy uWAjnIUlvrXyM4Ayt2JgTZ Ksmr94XEvjkENpdc16JF1d X4Ahk2QjnZ1cEVsnPPCxw1 HmcFLwnPXhNYLwa0YzM7dh lxzmRMlynJVmpM0lEVYcCG x7FELbf2DuRXFgl6CqEnHp suOdKBOlFKXaIFGpeN13DM Q0zYkwyTolfbYjTH6nPXFu fbNnWROrOSRhzD4nANzaxe IfZMUgaiL4v2O1MZgmEWHl fnCpFvkaHFL2wnLfmxE9cL HlD8puarayBKrdAKOjr1Hw hS7isJASmGNnm4AdkRNjqA TAeZHaED5vmyTbBJ1qYRD7 ODggKENMSUEtODgpIGFzIH H3VZzyUrraFIQ0dxBvRYXo o3MmWJdkE5tdV48kjHvpcU u2pDFagSqjuPDepVThYJLx soT2n8R3CFJgd5GufmvyBW BsYWluXGYyXGZzMjJcbGFu ZzEwMzNcaGljaFxmMlxkYm PjNZYiNEeqL5iyFxLmKsPi ZsjmXPE8fL== Gross assessment was [facility] performed at ([facility], = 2777) Department of Pathology, [address] [place] [id number], Technical component was [facility] performed at ([facility], = 2775) Department of Pathology, [address] [place] [id number], Professional component [facility] was performed at ([facility], code = 2779) Department of Pathology, [address] [place] [id number], [facility] [id number] 14:24:00Surgical Pathology Report Case: [id number] Authorizing Provider: Sarkis Laboy, Collected: 10/01/2020 09:43 AM OrderingLocation: [place] [address] ccu Received: 10/01/2020 01:48 PM Pathologist: Pa Peters MD Specimens: A) - Biopsy, Gastric, random biopsy B) -Gastric, gastric erythema biopsy A. STOMACH, RANDOM ENDOSCOPIC MUCOSAL BIOPSIES: - ANTRAL MUCOSA WITH MILD CHRONIC INACTIVE GASTRITIS AND FOCAL INTESTINALMETAPLASIA - OXYNTIC MUCOSA WITH MILD CHRONIC INACTIVE GASTRITIS WITH FOCAL ACTIVITY - WARTHIN STARRY STAIN NEGATIVE FOR H. PYLORI LIKE ORGANISMS - NEGATIVE FOR DYSPLASIA OR CARCINOMAB. STOMACH, ERYTHEMA, ENDOSCOPIC MUCOSAL BIOPSIES: - OXYNTIC MUCOSA WITH MILD CHRONIC INACTIVE GASTRITIS AND VERY FOCALACTIVITY - LAMINA PROPRIA CONGESTION AND PARTLY DENUDED WPITHELIUM - WARTHIN STARRY STAIN NEGATIVE FOR H. PYLORI LIKE ORGANISMS - NEGATIVE FOR INTESTINAL METAPLASIA, DYSPLASIA OR CARCINOMA Signing Pathologist Direct Phone Line: [phone] signed by Pa Peters MD on 10/02/2020 at 2:24 [id number] X 2, [address]02 R5lkeoxhS. GastricB. GastricA. Received in formalin labeled the patient's name, accession number and "gastric biopsy" are 4 robin-pink tissue fragments measuringup to 0.4 cm in greatest dimension which are filtered and submitted in toto in A1.B. Received in formalin labeled the patient's name, accession number and "gastric" is a 0.2 x 0.2 x 0.1 cm robin-pink tissue fragment which is filtered and submitted in toto in B1.XIMNEA Bhakta, QUINTIN (ASCP)Performed.The interpretation of this case included the use of immunohistochemistry or special stains.Control Slides Examined: In-house known positive controls were evaluated along with the test tissue. These control slides run alongside of the patients sample show appropriate staining. Internal positive and negative controls when available are evaluated Immunohistochemistry technical testing was performed at [facility], Pathology Laboratory where it was developed and its performance characteristics were determined. It has not been cleared or approved by the U.S. Food and Drug Administration. The FDA has determined that such clearance or approval is not necessary. The test is used for clinical purposes. It should not be regarded as investigational or for research. This laboratory is certified under the Clinical Laboratory Improvement Amendments of 1988 (CLIA-88) as qualified to perform high complexity clinical laboratory testing.[facility], Department of Pathology, [address] [place] [address], [facility] [place], Department of Pathology, [address] [place] [address], [facility], Department of Pathology, [address] [place] [address], PAHD-GLUCOSE [id number] 11:33:00 Test Item Value Reference Range Interpretation Comments POC-GLUCOSE METER 124 mg/dL 70-110 H : TESTED A T [facility] (WENDI) (test code = DEVON Serrato [facility], 1538) 727[address]: Safety Physician/Techni min ID = [id number] for Jaswinder Jefferson POCT-GLUCOSE [id number] 08:15:00 Test Item Value Reference Range Interpretation Comments POC-GLUCOSE METER 106 mg/dL 70-110 : TESTED A T [facility] (WENDI) (test code = [place], 1538) [address]: Safety Physician/Techni min ID = [id number] for Jaswinder Jefferson Comprehensive metabolic [id number] 05:17:00 Test Item Value Reference Range Interpretation Comments Protein, Total (test 6.1 See_Comment [Autom ated code = 2885-2) message] The system which generated this result transmit altagracia reference range : 6.0 - 8.3 gm/dL . The reference range was not u sed to interpret th is result as normal/abnormal . Albumin (test code = 2.6 g/dL 3.5-5 L 82166-9) Alkaline Phosphatase 85 U/L 40-150 (test code = 6768-6) Total Bilirubin (test 0.3 mg/dL 0.2-1.2 code = 1975-2) Sodium (test code = 133 meq/L 136-145 L 2951-2) Potassium (test code 4.0 meq/L 3.5-5.1 = 2823-3) Chloride (test code = 106 meq/L 98-107 2075-0) CO2 (test code = 17 meq/L 22-29 L 2028-9) BUN (test code = 37 mg/dL 7-21 H 3094-0) Creatinine (test code 1.94 mg/dL 0.57-1.25 H = 2160-0) Glucose (test code = 116 mg/dL 70-105 H 2345-7) Calcium (test code = 7.7 mg/dL 8.4-10.2 L 17518-8) AST (test code = 17 U/L 5-34 1920-8) ALT (test code = 9 U/L 6-55 1742-6) EGFR (test code = 35 mL/min/1.73 [place] [address]-8) NOT ACCURATE CREATININE CLEARANCE IN PREDICTING GLOMERULAR FILTRATION RATE . ESTIMATED GFR I S NOT APPLICABLE FOR DIALYSIS PATIEN ELIANA (test code = ELIANA) Safety Physician ID - EDASI Lab Interpretation Abnormal (test code = 68809-5) [facility] [id number] 05:17:00 Test Item Value Reference Range Interpretation Comments TOTAL PROTEIN 6.1 gm/dL 6.0-8.3 (BEAKER) (test code = 770) ALBUMIN (BEAKER) 2.6 g/dL 3.5-5.0 L (test code = 1145) ALKALINE PHOSPHATASE 85 U/L 40-150 (BEAKER) (test code = 346) BILIRUBIN TOTAL 0.3 mg/dL 0.2-1.2 (BEAKER) (test code = 377) SODIUM (BEAKER) (test 133 meq/L 136-145 L code = 381) POTASSIUM (BEAKER) 4.0 meq/L 3.5-5.1 (test code = 379) CHLORIDE (BEAKER) 106 meq/L 98-107 (test code = 382) CO2 (BEAKER) (test 17 meq/L 22-29 L code = 355) BLOOD UREA NITROGEN 37 mg/dL 7-21 H (BEAKER) (test code = 354) CREATININE (BEAKER) 1.94 mg/dL 0.57-1.25 H (test code = 358) GLUCOSE RANDOM 116 mg/dL 70-105 H (BEAKER) (test code = 652) CALCIUM (BEAKER) 7.7 mg/dL 8.4-10.2 L (test code = 697) AST (SGOT) (BEAKER) 17 U/L 5-34 (test code = 353) ALT (SGPT) (BEAKER) 9 U/L 6-55 (test code = 347) EGFR (BEAKER) (test 35 mL/min/1.73 ESTIMA ALTAGRACIA GFR IS code = 1092) sq m NOT ACCURATE CREATININE CLEARANCE IN PREDICTING GLOMERULAR FILTRATION RATE . ESTIMATED GFR I S NOT APPLICABLE FOR DIALYSIS PATIEN TS. Safety Physician ID - EDASICBC W/PLT COUNT & AUTO [id number] 04:32:00 Test Item Value Reference Range Interpretation Comments WHITE BLOOD CELL COUNT (BEAKER) 9.9 K/ L 3.5-10.5 (test code = 775) RED BLOOD CELL COUNT (BEAKER) 2.63 M/ L 4.63-6.08 L (test code = 761) HEMOGLOBIN (BEAKER) (test code = 7.3 GM/DL 13.7-17.5 L 410) HEMATOCRIT (BEAKER) (test code = 22.8 % 40.1-51.0 L 411) MEAN CORPUSCULAR VOLUME (BEAKER) 86.7 fL 79.0-92.2 (test code = 753) MEAN CORPUSCULAR HEMOGLOBIN 27.8 pg 25.7-32.2 (BEAKER) (test code = 751) MEAN CORPUSCULAR HEMOGLOBIN CONC 32.0 GM/DL 32.3-36.5 L (BEAKER) (test code = 752) RED CELL DISTRIBUTION WIDTH 12.9 % 11.6-14.4 (BEAKER) (test code = 412) PLATELET COUNT (BEAKER) (test 165 K/CU MM 150-450 code = 756) MEAN PLATELET VOLUME (BEAKER) 10.5 fL 9.4-12.4 (test code = 754) NUCLEATED RED BLOOD CELLS 0 /100 WBC 0-0 (BEAKER) (test code = 413) NEUTROPHILS RELATIVE PERCENT 83 % (BEAKER) (test code = 429) LYMPHOCYTES RELATIVE PERCENT 8 % (BEAKER) (test code = 430) MONOCYTES RELATIVE PERCENT 8 % (BEAKER) (test code = 431) EOSINOPHILS RELATIVE PERCENT 2 % (BEAKER) (test code = 432) BASOPHILS RELATIVE PERCENT 0 % (BEAKER) (test code = 437) NEUTROPHILS ABSOLUTE COUNT 8.21 K/ L 1.78-5.38 H (BEAKER) (test code = 670) LYMPHOCYTES ABSOLUTE COUNT 0.74 K/ L 1.32-3.57 L (BEAKER) (test code = 414) MONOCYTES ABSOLUTE COUNT (BEAKER) 0.76 K/ L 0.30-0.82 (test code = 415) EOSINOPHILS ABSOLUTE COUNT 0.16 K/ L 0.04-0.54 (BEAKER) (test code = 416) BASOPHILS ABSOLUTE COUNT (BEAKER) 0.02 K/ L 0.01-0.08 (test code = 417) IMMATURE GRANULOCYTES-RELATIVE 0 % 0-1 PERCENT (BEAKER) (test code = 2801) POCT-GLUCOSE [id number] 21:36:00 Test Item Value Reference Range Interpretation Comments POC-GLUCOSE METER 146 mg/dL 70-110 H : TESTED A T [facility] (BEAKER) (test code = [place], 1538) 57[address]: Safety Physician/Techni min ID = [id number] for Johana Vasquez Hemoglobin [id number] 15:28:00 Test Item Value Reference Range Interpretation Comments Hemoglobin A1C (test code = 4548-4) 5.6 % 4.3-6.1 Lab Interpretation (test code = Normal 25596-7) [facility] CenterHEMO[facility]IN [id number] 15:28:00 Test Item Value Reference Range Interpretation Comments HEMOGLOBIN A1C (BEAKER) (test code = 5.6 % 4.3-6.1 368) CBC W/PLT COUNT & AUTO [id number] 12:44:00 Test Item Value Reference Range Interpretation Comments WHITE BLOOD CELL COUNT (BEAKER) 10.8 K/ L 3.5-10.5 H (test code = 775) RED BLOOD CELL COUNT (BEAKER) 2.67 M/ L 4.63-6.08 L (test code = 761) HEMOGLOBIN (BEAKER) (test code = 7.3 GM/DL 13.7-17.5 L 410) HEMATOCRIT (BEAKER) (test code = 23.5 % 40.1-51.0 L 411) MEAN CORPUSCULAR VOLUME (BEAKER) 88.0 fL 79.0-92.2 (test code = 753) MEAN CORPUSCULAR HEMOGLOBIN 27.3 pg 25.7-32.2 (BEAKER) (test code = 751) MEAN CORPUSCULAR HEMOGLOBIN CONC 31.1 GM/DL 32.3-36.5 L (BEAKER) (test code = 752) RED CELL DISTRIBUTION WIDTH 13.2 % 11.6-14.4 (BEAKER) (test code = 412) PLATELET COUNT (BEAKER) (test 171 K/CU MM 150-450 code = 756) MEAN PLATELET VOLUME (BEAKER) 10.2 fL 9.4-12.4 (test code = 754) NUCLEATED RED BLOOD CELLS 0 /100 WBC 0-0 (BEAKER) (test code = 413) NEUTROPHILS RELATIVE PERCENT 86 % (BEAKER) (test code = 429) LYMPHOCYTES RELATIVE PERCENT 6 % (BEAKER) (test code = 430) MONOCYTES RELATIVE PERCENT 6 % (BEAKER) (test code = 431) EOSINOPHILS RELATIVE PERCENT 1 % (BEAKER) (test code = 432) BASOPHILS RELATIVE PERCENT 0 % (BEAKER) (test code = 437) NEUTROPHILS ABSOLUTE COUNT 9.31 K/ L 1.78-5.38 H (BEAKER) (test code = 670) LYMPHOCYTES ABSOLUTE COUNT 0.65 K/ L 1.32-3.57 L (BEAKER) (test code = 414) MONOCYTES ABSOLUTE COUNT (BEAKER) 0.69 K/ L 0.30-0.82 (test code = 415) EOSINOPHILS ABSOLUTE COUNT 0.06 K/ L 0.04-0.54 (BEAKER) (test code = 416) BASOPHILS ABSOLUTE COUNT (BEAKER) 0.02 K/ L 0.01-0.08 (test code = 417) IMMATURE GRANULOCYTES-RELATIVE 1 % 0-1 PERCENT (BEAKER) (test code = 2801) POCT-GLUCOSE [id number] 11:11:00 Test Item Value Reference Range Interpretation Comments POC-GLUCOSE METER 125 mg/dL 70-110 H : [facility] (test code = [employer] [facility], 1538) 639[address]: Safety Physician/Techni min ID = [id number] for BE LL, BEAULA Vancomycin level, [id number] 10:39:00 Test Item Value Reference Range Interpretation Comments Vancomycin Rm (test 4.8 ug/mL code = 02403-4) ELIANA (test code = Reference Range: No ELIANA) NormalsOperator ID - COLBY Rodriguez [facility] CenterVANCOMYCIN LEVEL, [id number] 10:39:00 Test Item Value Reference Range Interpretation Comments VANCOMYCIN RANDOM (BEAKER) (test 4.8 ug/mL code = 523) Reference Range: No NormalsOperator ID - COLBY CPOCT-GLUCOSE [id number] 08:38:00 Test Item Value Reference Range Interpretation Comments POC-GLUCOSE METER 119 mg/dL 70-110 H : [facility] (BE[facility]ER[facility] (test code = [employer] [facility], 1538) 89065: Safety Physician/Techni min ID = [id number] for BE LL, BEAULA SARS-CoV2/RT-PCR (Asymptomatic ONLY)2020-10-01 08:13:00 Test Item Value Reference Range Interpretation Comments SARS-COV2/RT-PCR Negative Not Detected, (test code = Negative, See 23060-1) external report for linked test SARS-COV-2 [facility] (test code = 81242-8) ELIANA (test code = Negative result for this ELIANA) test determines that SARS-CoV-2 RNA was not present in the specimen above the Limit of Detection (LOD). However, Negative results do not preclude SARS-CoV-2 infection and should not be used as the sole basis for treatment or patient management decisions. Negative results must be combined with clinical observations, patient history, and epidemiological information. A false negative result may occur if a specimen is improperly collected, transported or handled. A false negative result should be considered if patient's recent exposures or clinical presentation indicate that COVID-19 (SARS-CoV-2) is likely and diagnostic tests for other causes of illness are negative. Re-testing should be considered in cases of suspected false negatives. The limit of detection for this assay is 800 copies/mL. This SARS CoV-2 test is a real-time RT-PCR test intended for the qualitative detection of nucleic acid from SARS-CoV-2 in a nasopharyngeal swab specimen collected from individuals suspected of COVID-19 by their healthcare provider. This test has not been Food and Drug Administration (FDA) cleared or approved. This is a modified version of an approved Emergency Use Authorization (EUA) and is in the process of review by the FDA. Once authorized by the FDA, the issued EUA will be effective until the declaration that circumstances exist justifying the authorization of the emergency use of in vitro diagnostic tests for detection and/or diagnosis of COVID-19 is terminated under Section 564(b)(2) of the Act or the EUA is revoked under Section 564(g) of the Act. Fact Sheet for Healthcare Providers:https://www.Loud Gamesl.LookMedBook/sites/default/f dorys/product/documents/F act_Sheet_HC_Providers_L ayf_BIMO-WqZ-4.pdf Fact Sheet for Healthcare Patients:https://www.YEDInstitute del.LookMedBook/sites/default/fi les/product/documents/Fa ct_Sheet_Patients_Lyra_S ARS-CoV-2.pdf Performing Laboratory:[facility] [place] [address] [facility] ([facility])2020-10-01 08:13:00 Test Item Value Reference Range Interpretation Comments SARS-COV2/RT-PCR (test Negative Not Detected, Negative, code = 7855262) See external report for linked test SARS-COV-[address] [facility] (test code = 3204448) Negative result for this test determines that SARS-CoV-2 RNA was not present in the specimen above the Limit of Detection (LOD). However, Negative results do not preclude SARS-CoV-2 infection and should not be used as the sole basis for treatment or patient management decisions. Negative results mustbe combined with clinical observations, patient history, and epidemiological information. A false negative result may occur if a specimen is improperly collected, transported or handled. A false negative result should be considered if patient's recent exposures or clinical presentation indicate that COVID-19 (SARS-CoV-2) is likely and diagnostic tests for other causes of illness are negative. Re-testing should be considered in cases of suspected false negatives.The limit of detection for this assay is 800 copies/mL.This SARS CoV-2 test is a real-time RT-PCR test intended for the qualitative detection of nucleic acid from SARS-CoV-2 in a nasopharyngeal swab specimen collected from individuals susp ected of COVID-19 by their healthcare provider.This test has not been Food and Drug Administration (FDA) cleared or approved. This is a modified version of an approved Emergency Use Authorization (EUA) and is in the process of review by the FDA. Once authorized by the FDA, the issued EUA will be effective until the declaration that circumstances exist justifying the authorization of the emergency use of in vitro diagnostic tests for detection and/or diagnosis of COVID-19 is terminated under Section 564(b)(2) of the Act or the EUA is revoked under Section 564(g) of the Act.Fact Sheet for Healthcare Providers:https://www.Tindieidel.com/sites/default/files/product/documents/Fact_Shee t_YT_Bkdauhpze_Nnee_TORK-CyD-6.pdfFact Sheet for Healthcare Patients:https://www.Tindieidel.com/sites/default/files/product/ documents/Rwut_Arcfv_Kreicxpv_Rgld_ONZE-DwD-5.pdfPerforming Laboratory:[facility], [place] [id number] 06:20:00 Test Item Value Reference Range Interpretation Comments Ferritin (test code = 61.09 ng/mL 5-275 2276-4) ELIANA (test code = ELIANA) Safety Physician ID - ASHLEIGH Day Lab Interpretation (test Normal code = 25099-5) [facility] CenterVitamin B12 and [id number] 06:20:00 Test Item Value Reference Range Interpretation Comments Vitamin B12 (test 267 pg/mL 213-816 code = 2132-9) Folate (test code = 11.30 ng/mL See_Comment [Automa altagracia 2284-8) message] The system which generated this result transmit altagracia reference range : >=7.00. The reference range was not used to interpret this result as normal/abnormal . ELIANA (test code = ELIANA) Safety Physician ID - ASHLEIGH Day Lab Interpretation Normal (test code = 49139-2) [facility] CenterFERRITIN2021-03-19 06:20:00 Test Item Value Reference Range Interpretation Comments FERRITIN (BEAKER) (test code = 61.09 ng/mL 5.00-275.00 361) Safety Physician ID - ASHLEIGH LVITAMIN B12 AND [id number] 06:20:00 Test Item Value Reference Range Interpretation Comments VITAMIN B12 267 pg/mL 213-816 (BEAKER) (test code = 774) FOLATE (BEAKER) 11.30 ng/mL See_Comment [Automated message] (test code = 362) The system which generated this result transmitted ref erence range: >=7.00. The reference range was not used to interpr et this result as normal/abnormal . Safety Physician ID Eulalio SOTELO George, TIBC, % sat. (without ferritin)2020-10-01 06:04:00 Test Item Value Reference Range Interpretation Comments Iron (test code = 2498-4) 17.0 ug/dL 40-160 L TIBC (test code = 2500-7) 323 ug/dL 250-450 Iron % Saturation (test 5 % 20-55 L code = 2502-3) ELIANA (test code = ELIANA) Safety Physician ID Eulalio Day Lab Interpretation (test Abnormal code = 43068-6) [facility] CenterIRON, TIBC, % SAT. (WITHOUT FERRITIN)2020-10-01 06:04:00 Test Item Value Reference Range Interpretation Comments IRON (BEAKER) (test code = 547) 17.0 ug/dL 40.0-160.0 L TOTAL IRON BINDING CAPACITY 323 ug/dL 250-450 (BEAKER) (test code = 769) IRON % SATURATION (2) (BEAKER) 5 % 20-55 L (test code = 2590) Safety Physician ID - PIAYA LPOCT-GLUCOSE [id number] 05:23:00 Test Item Value Reference Range Interpretation Comments POC-GLUCOSE METER 116 mg/dL 70-110 H : TESTED A T [facility] (BEAKER) ([facility], = 1538) [address]: Safety Physician/Techni min ID = [id number] for DELONTE ALICIAINE CBC W/PLT COUNT & AUTO [id number] 03:26:00 Test Item Value Reference Range Interpretation Comments WHITE BLOOD CELL COUNT (BEAKER) 10.9 K/ L 3.5-10.5 H (test code = 775) RED BLOOD CELL COUNT (BEAKER) 2.68 M/ L 4.63-6.08 L (test code = 761) HEMOGLOBIN (BEAKER) (test code = 7.4 GM/DL 13.7-17.5 L 410) HEMATOCRIT (BEAKER) (test code = 23.0 % 40.1-51.0 L 411) MEAN CORPUSCULAR VOLUME (BEAKER) 85.8 fL 79.0-92.2 (test code = 753) MEAN CORPUSCULAR HEMOGLOBIN 27.6 pg 25.7-32.2 (BEAKER) (test code = 751) MEAN CORPUSCULAR HEMOGLOBIN CONC 32.2 GM/DL 32.3-36.5 L (BEAKER) (test code = 752) RED CELL DISTRIBUTION WIDTH 13.2 % 11.6-14.4 (BEAKER) (test code = 412) PLATELET COUNT (BEAKER) (test 172 K/CU MM 150-450 code = 756) MEAN PLATELET VOLUME (BEAKER) 10.1 fL 9.4-12.4 (test code = 754) NUCLEATED RED BLOOD CELLS 0 /100 WBC 0-0 (BEAKER) (test code = 413) NEUTROPHILS RELATIVE PERCENT 86 % (BEAKER) (test code = 429) LYMPHOCYTES RELATIVE PERCENT 5 % (BEAKER) (test code = 430) MONOCYTES RELATIVE PERCENT 7 % (BEAKER) (test code = 431) EOSINOPHILS RELATIVE PERCENT 1 % (BEAKER) (test code = 432) BASOPHILS RELATIVE PERCENT 0 % (BEAKER) (test code = 437) NEUTROPHILS ABSOLUTE COUNT 9.44 K/ L 1.78-5.38 H (BEAKER) (test code = 670) LYMPHOCYTES ABSOLUTE COUNT 0.56 K/ L 1.32-3.57 L (BEAKER) (test code = 414) MONOCYTES ABSOLUTE COUNT (BEAKER) 0.79 K/ L 0.30-0.82 (test code = 415) EOSINOPHILS ABSOLUTE COUNT 0.05 K/ L 0.04-0.54 (BEAKER) (test code = 416) BASOPHILS ABSOLUTE COUNT (BEAKER) 0.02 K/ L 0.01-0.08 (test code = 417) IMMATURE GRANULOCYTES-RELATIVE 1 % 0-1 PERCENT (BEAKER) (test code = 2801) COMPREHENSIVE METABOLIC [id number] 03:22:00 Test Item Value Reference Range Interpretation Comments TOTAL PROTEIN 6.3 gm/dL 6.0-8.3 (BEAKER) (test code = 770) ALBUMIN (BEAKER) 2.6 g/dL 3.5-5.0 L (test code = 1145) ALKALINE PHOSPHATASE 86 U/L 40-150 (BEAKER) (test code = 346) BILIRUBIN TOTAL 0.4 mg/dL 0.2-1.2 (BEAKER) (test code = 377) SODIUM (BEAKER) (test 131 meq/L 136-145 L code = 381) POTASSIUM (BEAKER) 3.9 meq/L 3.5-5.1 (test code = 379) CHLORIDE (BEAKER) 105 meq/L 98-107 (test code = 382) CO2 (BEAKER) (test 18 meq/L 22-29 L code = 355) BLOOD UREA NITROGEN 40 mg/dL 7-21 H (BEAKER) (test code = 354) CREATININE (BEAKER) 2.11 mg/dL 0.57-1.25 H (test code = 358) GLUCOSE RANDOM 118 mg/dL 70-105 H (BEAKER) (test code = 652) CALCIUM (BEAKER) 7.8 mg/dL 8.4-10.2 L (test code = 697) AST (SGOT) (BEAKER) 17 U/L 5-34 (test code = 353) ALT (SGPT) (BEAKER) 8 U/L 6-55 (test code = 347) EGFR (BEAKER) (test 31 mL/min/1.73 ESTIMA ALTAGRACIA GFR IS code = 1092) sq m NOT ACCURATE CREATININE CLEARANCE IN PREDICTING GLOMERULAR FILTRATION RATE . ESTIMATED GFR I S NOT APPLICABLE FOR DIALYSIS PATIEN TS. Safety Physician ID - DBCBC W/PLT COUNT & AUTO [id number] 20:14:00 Test Item Value Reference Range Interpretation Comments WHITE BLOOD CELL COUNT (BEAKER) 12.1 K/ L 3.5-10.5 H (test code = 775) RED BLOOD CELL COUNT (BEAKER) 2.80 M/ L 4.63-6.08 L (test code = 761) HEMOGLOBIN (BEAKER) (test code = 7.8 GM/DL 13.7-17.5 L 410) HEMATOCRIT (BEAKER) (test code = 24.1 % 40.1-51.0 L 411) MEAN CORPUSCULAR VOLUME (BEAKER) 86.1 fL 79.0-92.2 (test code = 753) MEAN CORPUSCULAR HEMOGLOBIN 27.9 pg 25.7-32.2 (BEAKER) (test code = 751) MEAN CORPUSCULAR HEMOGLOBIN CONC 32.4 GM/DL 32.3-36.5 (BEAKER) (test code = 752) RED CELL DISTRIBUTION WIDTH 13.2 % 11.6-14.4 (BEAKER) (test code = 412) PLATELET COUNT (BEAKER) (test 196 K/CU MM 150-450 code = 756) MEAN PLATELET VOLUME (BEAKER) 10.4 fL 9.4-12.4 (test code = 754) NUCLEATED RED BLOOD CELLS 0 /100 WBC 0-0 (BEAKER) (test code = 413) NEUTROPHILS RELATIVE PERCENT 87 % (BEAKER) (test code = 429) LYMPHOCYTES RELATIVE PERCENT 6 % (BEAKER) (test code = 430) MONOCYTES RELATIVE PERCENT 7 % (BEAKER) (test code = 431) EOSINOPHILS RELATIVE PERCENT 1 % (BEAKER) (test code = 432) BASOPHILS RELATIVE PERCENT 0 % (BEAKER) (test code = 437) NEUTROPHILS ABSOLUTE COUNT 10.46 K/ L 1.78-5.38 H (BEAKER) (test code = 670) LYMPHOCYTES ABSOLUTE COUNT 0.68 K/ L 1.32-3.57 L (BEAKER) (test code = 414) MONOCYTES ABSOLUTE COUNT (BEAKER) 0.78 K/ L 0.30-0.82 (test code = 415) EOSINOPHILS ABSOLUTE COUNT 0.06 K/ L 0.04-0.54 (BEAKER) (test code = 416) BASOPHILS ABSOLUTE COUNT (BEAKER) 0.02 K/ L 0.01-0.08 (test code = 417) IMMATURE GRANULOCYTES-RELATIVE 1 % 0-1 PERCENT (BEAKER) (test code = 2801) POCT-GLUCOSE [id number] 20:12:00 Test Item Value Reference Range Interpretation Comments POC-GLUCOSE METER 134 mg/dL 70-110 H : TESTED A T [facility] (BEAKER) (test [facility], = 1538) 950[address]: Safety Physician/Techni min ID = [id number] for CORRY CASAS JUNIE CBC (HEMOGRAM ONLY)2020-09-30 15:28:00 Test Item Value Reference Range Interpretation Comments WHITE BLOOD CELL COUNT (BEAKER) 12.6 K/ L 3.5-10.5 H (test code = 775) RED BLOOD CELL COUNT (BEAKER) 2.81 M/ L 4.63-6.08 L (test code = 761) HEMOGLOBIN (BEAKER) (test code = 7.9 GM/DL 13.7-17.5 L 410) HEMATOCRIT (BEAKER) (test code = 24.1 % 40.1-51.0 L 411) MEAN CORPUSCULAR VOLUME (BEAKER) 85.8 fL 79.0-92.2 (test code = 753) MEAN CORPUSCULAR HEMOGLOBIN 28.1 pg 25.7-32.2 (BEAKER) (test code = 751) MEAN CORPUSCULAR HEMOGLOBIN CONC 32.8 GM/DL 32.3-36.5 (BEAKER) (test code = 752) RED CELL DISTRIBUTION WIDTH 13.0 % 11.6-14.4 (BEAKER) (test code = 412) PLATELET COUNT (BEAKER) (test 176 K/CU MM 150-450 code = 756) MEAN PLATELET VOLUME (BEAKER) 9.9 fL 9.4-12.4 (test code = 754) NUCLEATED RED BLOOD CELLS 0 /100 WBC 0-0 (BEAKER) (test code = 413) POCT-GLUCOSE [id number] 14:32:00 Test Item Value Reference Range Interpretation Comments POC-GLUCOSE METER 106 mg/dL 70-110 : [facility] (BEAKER) (test code = [place], 1538) [address]: Safety Physician/Techni min ID = [id number] for CHUY SWANN HEMOGLOBIN [id number] 11:57:00 Test Item Value Reference Range Interpretation Comments HEMOGLOBIN A1C (BEMEREDITH) (test code = 5.6 % 4.3-6.1 368) U/S, ABDOMINAL, [id number] 11:53:00Abdomen limited area? Add comment if clarification is needed.->Right upper quadrantReason for exam:->liver cirrhosis; ETOH abuse [facility] : 1950 Sex: MFINAL REPORT TECHNIQUE: Grayscale ultrasound of the right abdomen. IN DICATION: liver cirrhosis; ETOH abuse. COMPARISON: None. FINDINGS: MIDLINE VASCULATURE: The visualized inferior vena cava is unremarkable. The maximum visualized aortic diameter is 2.6 cm. LIVER: The hepatic echotexture is coarsened. The liver contour is questionably nodular. No focal lesions. The main portal vein is patent and measures 1.5 cm in diameter. BILIARY:Gallbladder: A nodular focus in thegallbladder neck measures 0.5 cm. No gallbladder wall thickening, pericholecystic fluid, or distention. Negative sonographic Valdez sign.Common bile duct measures 0.5 cm, within normal limits. No intrahepatic biliary ductal dilatation. PANCREAS: Incompletely visualized due to overlying bowel gas. The partially visualized pancreatic head and neck are normal. PERITONEUM: No free fluid. RIGHT KIDNEY: Normal in size. Increased cortical echogenicity. No hydronephrosis. No sonographically evident solid mass lesion. IMPRESSION: 1.The hepatic echotexture is coarsened as can be seen with chronic parenchymal liver disease. There is some questionable nodularity of the liver contour. No focal hepatic lesion.2.There is dilation of the main portal vein, concerning for portal hypertension. 3.A nonshadowing, nonmobile focus in the gallbladder neck measures 0.5 cm and is most concerning for a polyp. A follow-up ultrasound is recommended in six months to document stability. 4.The increased right renal corticalechogenicity is concerning for chronic medical renal disease. Signed: Caity Hernadez MDReport Verified Date/Time: 09/30/2020 11:53:08 US abdomen [id number] 11:53:00Interface, External Ris In - 09/30/2020 11:55 AM CDTFINAL REPORT TECHNIQUE: Grayscale ultrasound of the right abdomen. INDICATION: liver cirrhosis; ETOH abuse. COMPARISON: None. FINDINGS: MIDLINE VASCULATURE: The visualized inferior vena cava is unremarkable. The maximum visualized aortic diameter is 2.6 cm. LIVER: The hepatic echotexture is coarsened. The liver contour is questionably nodular. No focal lesions. The main portal vein is patent and measures 1.5 cm in diameter. B ILIARY:Gallbladder: A nodular focus in the gallbladder neck measures 0.5 cm. No gallbladder wall thickening, pericholecystic fluid, or distention. Negative sonographic Valdez sign.Common bile duct measures 0.5 cm, within normal limits. No intrahepatic biliary ductal dilatation. PANCREAS: Incompletely visualized due to overlying bowel gas. The partially visualized pancreatic head and neck are normal. PERITONEUM: No free fluid. RIGHT KIDNEY: Normal in size. Increased cortical echogenicity. No hydronephrosis. No sonographically evident solid mass lesion. IMPRESSION: 1.The hepatic echotexture is coarsened as can be seen with chronic parenchymal liver disease. There is some questionable nodularity of the liver contour. No focal hepatic lesion. 2.There is dilation of the main portal vein, concerning for portal hypertension. 3.A nonshadowing, nonmobile focus in the gallbladder neck measures 0.5 cm andis most concerning for a polyp. A follow-up ultrasound is recommended in six months to document stability. 4.The increased right renal cortical echogenicity is concerning for chronic medical renal disease. Signed: Caity Hernadez MDReport Verified Date/Time: 09/30/2020 11:53:08 Electronically signedby: CAITY HERNADEZ MD on 09/30/2020 11:53 [facility] Culture 2020-09-30 10:53:00 Test Item Value Reference Range Interpretation Comments Color, UA (test code Light Yellow = 5778-6) Clarity, UA (test Clear code = 5767-9) Specific Esmond, UA 1.014 1.001-1.035 (test code = 5811-5) pH, UA (test code = 6.0 5.0-8.0 5803-2) Protein, UA (test 200 mg/dL Negative A code = 80074-4) Glucose, UA (test 50 mg/dL Negative A code = 365) Ketones, UA (test Negative Negative code = 2514-8) Bilirubin, UA (test Negative Negative code = 93879-5) Blood, UA (test code Small Negative A = 37580-9) Nitrite, UA (test Negative Negative code = 5802-4) Leukocytes, UA (test Negative Negative code = 5799-2) Urobilinogen, UA 0.2 mg/dL 0.2-1 (test code = 71734-5) RBC, UA (test code = 1 See_Comment [Autom ated 11202-1) message] The system which generated this result transmit altagracia reference range : /HPF. The reference range was not used to interpret this result as normal/abnormal . WBC, UA (test code = 1 See_Comment [Autom ated 5821-4) message] The system which generated this result transmit altagracia reference range : /HPF. The reference range was not used to interpret this result as normal/abnormal . Bacteria, UA (test Few code = 28449-3) Mucus (test code = Few 8247-9) Squam Epithel, UA 1 See_Comment [Automate d (test code = 57777-9) messag e] The system which generated this result transmit altagracia reference range : /HPF. The reference range was not used to interpret this result as normal/abnormal . Hyaline Casts, UA 6 See_Comment [Automate d (test code = 97216-2) messag e] The system which generated this result transmit altagracia reference range : /LPF. The reference range was not used to interpret this result as normal/abnormal . Specimen Source (test code = 2795) ELIANA (test code = ELIANA) Safety Physician ID - [auto]Safety Physician ID - tech Lab Interpretation Abnormal (test code = 14386-3) [facility] [id number] 10:53:00 Test Item Value Reference Range Interpretation Comments COLOR (BEAKER) (test code = 470) Light Yellow CLARITY (BEAKER) (test code = Clear 469) SPECIFIC GRAVITY UA (BEAKER) 1.014 1.001-1.035 (test code = 468) PH UA (BEAKER) (test code = 467) 6.0 5.0-8.0 PROTEIN UA (BEAKER) (test code = 200 mg/dL Negative A 464) GLUCOSE UA (BEAKER) (test code = 50 mg/dL Negative A 365) KETONES UA (BEAKER) (test code = Negative Negative 371) BILIRUBIN UA (BEAKER) (test code Negative Negative = 462) BLOOD UA (BEAKER) (test code = Small Negative A 461) NITRITE UA (BEAKER) (test code = Negative Negative 465) LEUKOCYTE ESTERASE UA (BEAKER) Negative Negative (test code = 466) UROBILINOGEN UA (BEAKER) (test 0.2 mg/dL 0.2-1.0 code = 463) RBC UA (BEAKER) (test code = 1 /HPF 519) WBC UA (BEAKER) (test code = 1 /HPF 520) BACTERIA (BEAKER) (test code = Few 517) MUCUS (BEAKER) (test code = Few 1574) SQUAMOUS EPITHELIAL (BEAKER) 1 /HPF (test code = 516) HYALINE CASTS (BEAKER) (test 6 /LPF code = 514) SOURCE(BEAKER) (test code = 2795) Safety Physician ID - [auto]Safety Physician ID - techLactic acid, [id number] 10:00:00 Test Item Value Reference Range Interpretation Comments Lactate, Venous (test code 1.08 mmol/L 0.5-2.2 = 2872) ELIANA (test code = ELIANA) Safety Physician ID Eulalio SOTELO L Lab Interpretation (test Normal code = 06134-2) [facility], [id number] 10:00:00 Test Item Value Reference Range Interpretation Comments LACTATE BLOOD VENOUS (2) (BEAKER) 1.08 mmol/L 0.50-2.20 (test code = 2872) Safety Physician ORION SOTELO LCBC W/PLT COUNT & AUTO [id number] 09:53:00 Test Item Value Reference Range Interpretation Comments WHITE BLOOD CELL COUNT (BEAKER) 11.9 K/ L 3.5-10.5 H (test code = 775) RED BLOOD CELL COUNT (BEAKER) 2.88 M/ L 4.63-6.08 L (test code = 761) HEMOGLOBIN (BEAKER) (test code = 8.1 GM/DL 13.7-17.5 L 410) HEMATOCRIT (BEAKER) (test code = 24.1 % 40.1-51.0 L 411) MEAN CORPUSCULAR VOLUME (BEAKER) 83.7 fL 79.0-92.2 (test code = 753) MEAN CORPUSCULAR HEMOGLOBIN 28.1 pg 25.7-32.2 (BEAKER) (test code = 751) MEAN CORPUSCULAR HEMOGLOBIN CONC 33.6 GM/DL 32.3-36.5 (BEAKER) (test code = 752) RED CELL DISTRIBUTION WIDTH 12.9 % 11.6-14.4 (BEAKER) (test code = 412) PLATELET COUNT (BEAKER) (test 169 K/CU MM 150-450 code = 756) MEAN PLATELET VOLUME (BEAKER) 10.2 fL 9.4-12.4 (test code = 754) NUCLEATED RED BLOOD CELLS 0 /100 WBC 0-0 (BEAKER) (test code = 413) NEUTROPHILS RELATIVE PERCENT 85 % (BEAKER) (test code = 429) LYMPHOCYTES RELATIVE PERCENT 7 % (BEAKER) (test code = 430) MONOCYTES RELATIVE PERCENT 7 % (BEAKER) (test code = 431) EOSINOPHILS RELATIVE PERCENT 0 % (BEAKER) (test code = 432) BASOPHILS RELATIVE PERCENT 0 % (BEAKER) (test code = 437) NEUTROPHILS ABSOLUTE COUNT 10.05 K/ L 1.78-5.38 H (BEAKER) (test code = 670) LYMPHOCYTES ABSOLUTE COUNT 0.82 K/ L 1.32-3.57 L (BEAKER) (test code = 414) MONOCYTES ABSOLUTE COUNT (BEAKER) 0.87 K/ L 0.30-0.82 H (test code = 415) EOSINOPHILS ABSOLUTE COUNT 0.05 K/ L 0.04-0.54 (BEAKER) (test code = 416) BASOPHILS ABSOLUTE COUNT (BEAKER) 0.02 K/ L 0.01-0.08 (test code = 417) IMMATURE GRANULOCYTES-RELATIVE 0 % 0-1 PERCENT (BEAKER) (test code = 2801) RAD, CHEST, 1 VIEW, NON [id number] 09:06:00Reason for exam:->? sob [facility] : 1950 Sex: MFINAL REPORT INDICATION: ? sob COMPARISON: None TECHNIQUE: Single fro ntal view of the chest. FINDINGS: Lungs and pleura: Clear lungs. No effusion.Heart and mediastinum: Normal heart size. Unremarkable mediastinal contours.Osseous structures: No acute abnormality.Other: None. IMPRESSION: No acute intrathoracic abnormality. Signed: Nahed Cleary Verified Date/ Time: 09/30/2020 09:06:18 Reading Location: [facility] Radiology Reading Room XR chest 1 view portable / [id number] 09:06:00Interface, External Ris In - 09/30/2020 9:24 AM CDTFINAL REPORT INDICATION: ? sob COMPARISON: None TECHNIQUE: Single frontal view of the chest. FINDINGS: Lungs and pleura: Clearlungs. No effusion.Heart and mediastinum: Normal heart size. Unremarkable mediastinal contours.Osseous structures: No acute abnormality.Other: None. IMPRESSION: No acute intrathoracic abnormality. Sign ed: Nahed Cleary Verified Date/Time: 09/30/2020 09:06:18 Reading Location: [facility] Radiology Reading Room [facility] COMPREHENSIVE METABOLIC [id number] 07:47:00 Test Item Value Reference Range Interpretation Comments TOTAL PROTEIN 7.2 gm/dL 6.0-8.3 (BEAKER) (test code = 770) ALBUMIN (BEAKER) 3.2 g/dL 3.5-5.0 L (test code = 1145) ALKALINE PHOSPHATASE 117 U/L 40-150 (BEAKER) (test code = 346) BILIRUBIN TOTAL 0.6 mg/dL 0.2-1.2 (BEAKER) (test code = 377) SODIUM (BEAKER) (test 132 meq/L 136-145 L code = 381) POTASSIUM (BEAKER) 4.1 meq/L 3.5-5.1 (test code = 379) CHLORIDE (BEAKER) 105 meq/L 98-107 (test code = 382) CO2 (BEAKER) (test 16 meq/L 22-29 L code = 355) BLOOD UREA NITROGEN 51 mg/dL 7-21 H (BEAKER) (test code = 354) CREATININE (BEAKER) 2.32 mg/dL 0.57-1.25 H (test code = 358) GLUCOSE RANDOM 154 mg/dL 70-105 H (BEAKER) (test code = 652) CALCIUM (BEAKER) 8.3 mg/dL 8.4-10.2 L (test code = 697) AST (SGOT) (BEAKER) 23 U/L 5-34 (test code = 353) ALT (SGPT) (BEAKER) 10 U/L 6-55 (test code = 347) EGFR (BEAKER) (test 28 mL/min/1.73 ESTIMA ALTAGRACIA GFR IS code = 1092) sq m NOT ACCURATE CREATININE CLEARANCE IN PREDICTING GLOMERULAR FILTRATION RATE . ESTIMATED GFR I S NOT APPLICABLE FOR DIALYSIS PATIEN ALINE. Safety Physician ID - [id number] 07:07:00 Test Item Value Reference Range Interpretation Comments PTT (test code = 42441-3) 25.1 See_Comment [ Automated message] The system [employer] generated this result transmitted ref erence range: 22.5 - 3 6.0 seconds. The re ference range was not u sed to interpret this result as normal/abnor mal. Lab Interpretation (test Normal code = 33701-9) [facility] CenterPROTHROMBIN TIME/[id number] 07:07:00 Test Item Value Reference Range Interpretation Comments PROTIME (WENDI) 14.2 seconds 11.9-14.2 (test code = 759) INR (Scopix) (test 1.13 See_Comment [Automat ed message] code = 370) The system [employer] generated this result transmitted ref erence range: <=5.90. The reference range was not used to int erpret this result as normal/abnormal . Effective 12/11/2018: PT Reference Range ChangeNew: 11.9-14.2 Previous: 11.7- 14.7RECOMMENDED COUMADIN/WARFARIN INR THERAPY RANGESSTANDARD DOSE: 2.0-3.0 Includes: PROPHYLAXIS for venous thrombosis, systemic embolization; TREATMENT for venous thrombosis and/or pulmonary embolus.HIGH RISK: Target INR is2.5-3.5 for patients wiht mechanical heart valves.[id number] 07:07:00 Test Item Value Reference Range Interpretation Comments PARTIAL THROMBOPLASTIN TIME 25.1 seconds 22.5-36.0 (NELAKER) (test code = 760) POCT-GLUCOSE [id number] 06:39:00 Test Item Value Reference Range Interpretation Comments POC-GLUCOSE METER 150 mg/dL 70-110 H : TESTED A T BSC 6720 (BEAT BioTherapeuticsMEREDITH) (test code [facility], = 1538) [address]47: Safety Physician/Techni min ID = [id number] for JUNIE ALICIA [id number] 00:00:00Ordered by an unspecified provider.[facility])2020-01-26 13:29:00 Test Item Value Reference Range Interpretation Comments SARS-COV2/RT-PCR (test code = Negative Not Detected, Negative 7689423) SARS-COV-[address] [facility] (test code = 2522762) Negative result for this test determines that SARS-CoV-2 RNA was not present in the specimen above the Limit of Detection (LOD). However, Negative results do not preclude SARS-CoV-2 infection and should not be used as the sole basis for treatment or patient management decisions. Negative results mustbe combined with clinical observations, patient history, and epidemiological information. A false negative result may occur if a specimen is improperly collected, transported or handled. A false negative result should be considered if patient's recent exposures or clinical presentation indicate that COVID-19 (SARS-CoV-2) is likely and diagnostic tests for other causes of illness are negative. Re-testing should be considered in cases of suspected false negatives.The limit of detection for this assay is 800 copies/mL.This SARS CoV-2 test is a real-time RT-PCR test intended for the qualitative detection of nucleic acid from SARS-CoV-2 in a nasopharyngeal swab specimen collected from individuals susp ected of COVID-19 by their healthcare provider.This test has not been Food and Drug Administration (FDA) cleared or approved. This is a modified version of an approved Emergency Use Authorization (EUA) and is in the process of review by the FDA. Once authorized by the FDA, the issued EUA will be effective until the declaration that circumstances exist justifying the authorization of the emergency use of in vitro diagnostic tests for detection and/or diagnosis of COVID-19 is terminated under Section 564(b)(2) of the Act or the EUA is revoked under Section 564(g) of the Act.Fact Sheet for Healthcare Providers:https://www.Szl.it.LookMedBook/sites/default/files/product/documents/Fact_Shee u_PU_Onfhyxmut_Ysez_XUBB-DtL-0.pdfFact Sheet for Healthcare Patients:https://www.Szl.it.LookMedBook/sites/default/files/product/ documents/Rcqq_Ujqbm_Cpvwuefn_Zofg_GHDT-IlF-0.pdfPerforming Laboratory:[facility] [place] [address]
[2020-10-29] MEDS ORDERED: ACETAMINOPHEN 500 MG TAB ONE (11:57)
--- NOTE | 2020-10-29 12:36 | RAD REPORT ---
EXAM DESCRIPTION: RAD - Knee Left 3 View - 10/29/2020 12:29 pm CLINICAL HISTORY: PAIN COMPARISON: Knee Left 2 View dated 11/06/2019; Knee Left 3 View dated 03/21/2019 FINDINGS: Soft tissue ulceration is noted about the stump of the [id number]-eah-nmbq amputation. Heavy va scular calcifications are seen. Subtle cortical irregularity along the medial aspect of the stump bon e could indicate very early findings of osteomyelitis.
[2020-10-29 13:53] LABS: Basophils % 0.5 % (0-1.3); Hematocrit 21.4 % (39.6-49.0); Lymphocytes % 16.1 % (15.3-44.8); MPV 8.7 fL (7.6-11.3); RBC Red Blood Cell Count 2.66 M/uL (4.33-5.43)
--- NOTE | 2020-10-29 13:58 | ER ---
Nurse's Notes [facility] Name: Amaury Matamoros Age: 69 yrs Sex: Male : 1950 Arrival Date: 10/29/2020 Time: 10:50 Bed 19 Private MD: Alfonzo Mera Diagnosis: Osteomyelitis, unspecified;Anemia, unspecified Presentation: 10/29 10:58 Chief complaint: Patient states: Sore on the L leg x 1 week, not healing and very ca1 painful. Denies fever. Coronavirus screen: Client denies travel out of the [place] in the last 14 days. At this time, the client does not indicate any symptoms associated with coronavirus-19. Ebola Screen: Patient negative for fever greater than or equal to 101.5 degrees Fahrenheit, and additional compatible Ebola Virus Disease symptoms Patient denies exposure to infectious person. Patient denies travel to an Ebola-affected area in the 21 days before illness onset. No symptoms or risks identified at this time. Initial Sepsis Screen: Does the patient meet any 2 criteria? No. Patient's initial sepsis screen is negative. Does the patient have a suspected source of infection? No. Patient's initial sepsis screen is negative. Risk Assessment: Do you want to hurt yourself or someone else? Patient reports no desire to harm self or others. Onset of symptoms was October 29, 2020. 10:58 Method Of Arrival: Ambulatory ca1 10:58 Acuity: ALEJANDRA 3 ca1 Historical: - Allergies: 11:01 PENICILLINS; ca1 - Home Meds: 11:01 Metformin Oral [Active]; ca1 - PMHx: 11:01 Cellulitis; Diabetes - NIDDM; Hypertension; ca1 - PSHx: 11:01 BKA; ca1 - Immunization history:: Adult Immunizations not up to date, Flu vaccine is not up to date. - Social history:: Smoking status: Patient reports the use of cigarette tobacco products, denies chronic smoking, but will smoke occasionally. Screenin:15 Abuse screen: Denies threats or abuse. Nutritional screening: No deficits noted. jd3 Tuberculosis screening: No symptoms or risk factors identified. Fall Risk Ambulatory Aid- None/Bed Rest/Nurse Assist (0 pts). Gait- Normal/Bed Rest/Wheelchair (0 pts) Mental Status- Oriented to own ability (0 pts). Total Monahan Fall Scale indicates No Risk (0-24 pts). Assessment: 11:30 General: Appears in no apparent distress. comfortable, Behavior is calm, cooperative, jd3 appropriate for age, pt asking for lunch on arrival to room. Pain: Complains of pain in left knee Quality of pain is described as aching, tender. Neuro: Level of Consciousness is awake, alert, obeys commands, Oriented to person, place, time, situation. Cardiovascular: Denies chest pain, Capillary refill < 3 seconds Patient's skin is warm and dry. Respiratory: Airway is patent Respiratory effort is even, unlabored, Respiratory pattern is regular, symmetrical, Denies cough, shortness of breath. GI: No signs and/or symptoms were reported involving the gastrointestinal system. : No signs and/or symptoms were reported regarding the genitourinary system. EENT: No signs and/or symptoms were reported regarding the EENT system. Derm: Skin is intact, Skin is dry, Skin is normal, Skin temperature is warm Wound noted noted below the knee on the amputated portion of the left leg. 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 Circulation, motion, and sensation intact. 12:11 Reassessment: Patient appears in no apparent distress at this time. No changes from jd3 previously documented assessment. Patient and/or family updated on plan of care and expected duration. Pain level reassessed. Patient is alert, oriented x 3, equal unlabored respirations, skin warm/dry/pink. awaiting results. 13:30 Reassessment: Patient appears in no apparent distress at this time. No changes from jd3 previously documented assessment. Patient and/or family updated on plan of care and expected duration. Pain level reassessed. Patient is alert, oriented x 3, equal unlabored respirations, skin warm/dry/pink. 14:20 Reassessment: Patient appears in no apparent distress at this time. No changes from jd3 previously documented assessment. Patient and/or family updated on plan of care and expected duration. Pain level reassessed. Patient is alert, oriented x 3, equal unlabored respirations, skin warm/dry/pink. 15:01 Reassessment: Patient appears in no apparent distress at this time. No changes from jd3 previously documented assessment. Patient and/or family updated on plan of care and expected duration. Pain level reassessed. Patient is alert, oriented x 3, equal unlabored respirations, skin warm/dry/pink. 15:55 Reassessment: Patient appears in no apparent distress at this time. Patient and/or jd3 family updated on plan of care and expected duration. Pain level reassessed. Patient is alert, oriented x 3, equal unlabored respirations, skin warm/dry/pink. resting in bed awaiting admission. 17:14 Reassessment: Patient appears in no apparent distress at this time. Patient and/or jd3 family updated on plan of care and expected duration. Pain level reassessed. Patient is alert, oriented x 3, equal unlabored respirations, skin warm/dry/pink. awaiting admission. 18:23 Reassessment: Patient appears in no apparent distress at this time. Patient and/or jd3 family updated on plan of care and expected duration. Pain level reassessed. Patient is alert, oriented x 3, equal unlabored respirations, skin warm/dry/pink. report attempt made with no answer X 3 charge nurse notified. pt resting in bed awaiting admission. 19:58 General: Appears in no apparent distress. Behavior is calm, cooperative, appropriate ea for age. Pain: Complains of pain in left knee. Neuro: Level of Consciousness is awake, alert, obeys commands, Oriented to person, place, time, situation. Cardiovascular: Patient's skin is warm and dry. Respiratory: Airway is patent Respiratory effort is even, unlabored, Respiratory pattern is regular, symmetrical. 20:24 Reassessment: Patient and/or family updated on plan of care and expected duration. Pain ea level reassessed. Patient is alert, oriented x 3, equal unlabored respirations, skin warm/dry/pink. Awaiting soa integration developer back from receiving nurse. 20:53 Reassessment: Patient and/or family updated on plan of care and expected duration. Pain ea level reassessed. Patient is alert, oriented x 3, equal unlabored respirations, skin warm/dry/pink. Admitted to second floor. Pt left ED via wheelchair per tech. Vital Signs: 10:58 BP 210 / 105; Pulse 79; Resp 16 S; Temp 98.5(O); Pulse Ox 99% on R/A; Weight 58.97 kg ca1 (R); Height 5 ft. 2 in. (157.48 cm) (R); Pain 10/10; 13:43 BP 198 / 90; Pulse 70; Resp 18 S; Pulse Ox 100% on R/A; jd3 15:02 BP 109 / 62; Pulse 77; Resp 16 S; Pulse Ox 99% on R/A; jd3 15:56 BP 131 / 82; Pulse 76; Resp 16 S; Pulse Ox 99% on R/A; jd3 17:14 BP 112 / 60; Pulse 80; Resp 17 S; Pulse Ox 100% on R/A; jd3 18:26 BP 125 / 67; Pulse 83; Resp 16 S; Pulse Ox 100% on R/A; jd3 19:59 BP 164 / 97; Pulse 80; Resp 18; Pulse Ox 98% ; ea 10:58 Body Mass Index 23.78 (58.97 kg, 157.48 cm) ca1 ED Course: 10:50 Patient arrived in ED. am2 10:51 Alfonzo Mera DO is Private Physician. am2 11:00 Triage completed. ca1 11:01 Arm band placed on right wrist. ca1 11:07 Nic Butcher MD is Attending Physician. tw4 11:15 Hari Rodriguez, RN is Primary Nurse. jd3 11:16 Patient has correct armband on for positive identification. Bed in low position. Call jd3 light in reach. Side rails up X 1. Pulse ox on. NIBP on. 12:28 XRAY Knee LEFT 3 view In Process Unspecified. EDMS 12:31 X-ray completed. Portable x-ray completed in exam room. Patient tolerated procedure md1 well. 13:38 Inserted saline lock: 20 gauge in left forearm, using aseptic technique. Blood jd3 collected. 13:56 Annita Simeon MD is Hospitalizing Provider. tw4 19:21 No provider procedures requiring assistance completed. Patient admitted, IV remains in ea place. 20:06 Primary Nurse role handed off by Hari Rodriguez RN tt3 20:11 Christie Velasco RN is Primary Nurse. ea Administered Medications: 11:41 Drug: Tylenol 1000 mg Route: PO; jd3 14:03 Drug: [place] (HYDROcodone-acetaminophen) 5 mg-325 mg 1 tabs Route: PO; jd3 15:00 Follow up: Response: No adverse reaction; RASS: Alert and Calm (0) jd3 14:04 Drug: hydrALAZINE 20 mg Route: IV; Rate: calculated rate; Site: left forearm; jd3 18:29 Follow up: Response: No adverse reaction; Marked relief of symptoms; Blood pressure is jd3 lowered; IV Status: Completed infusion 14:38 Drug: vancoMYCIN 1 grams Route: IVPB; Infused Over: 2 hrs; Site: left forearm; jd3 16:30 Follow up: Response: No adverse reaction; IV Status: Completed infusion jd3 Outcome: 13:57 Decision to Hospitalize by Provider. tw4 19:26 Instructed on the need for admit, Demonstrated understanding of instructions. ea 20:53 Admitted to Med/surg accompanied by tech, via wheelchair, with chart, Report called to ea Receiving nurse on second floor 20:53 Condition: stable 20:54 Patient left the ED. ea Signatures: Dispatcher [employer] EDChanda Morales Elena RN RN Hari Grover RN RN jd3 Wadley, Terrence, MD MD tw4 Hailee Munguia RN RN ca1 [place], Mikaela md1 Silvestre Al tt3 Corrections: (The following items were deleted from the chart) 18:28 18:26 BP 125 / 67; Pulse 80bpm; Resp 16bpm; Spontaneous; Pulse Ox 100% RA; jd3 jd3
--- NOTE | 2020-10-29 13:58 | EDPHYS ---
Physician Documentation [facility] Name: Amaury Matamoros Age: 69 yrs Sex: Male : 1950 Arrival Date: 10/29/2020 Time: 10:50 Bed 19 Private MD: [facility] ED Physician Nic Butcher HPI: 10/29 17:24 This 69 yrs old Male presents to ER via Ambulatory with complaints of Skin tw4 Sore(s) - left leg. 17:24 The patient presents with cellulitis of the left knee. Onset: The symptoms/episode tw4 began/occurred today. Associated signs and symptoms: The patient has no apparent associated signs or symptoms. Severity of symptoms: At their worst the symptoms were moderate, in the emergency department the symptoms are unchanged. The patient has not experienced similar symptoms in the past. Historical: - Allergies: 11:01 PENICILLINS; ca1 - Home Meds: 11:01 Metformin Oral [Active]; ca1 - PMHx: 11:01 Cellulitis; Diabetes - NIDDM; Hypertension; ca1 - PSHx: 11:01 BKA; ca1 - Immunization history:: Adult Immunizations not up to date, Flu vaccine is not up to date. - Social history:: Smoking status: Patient reports the use of cigarette tobacco products, denies chronic smoking, but will smoke occasionally. ROS: 17:24 Constitutional: Negative for fever, chills, and weight loss, Eyes: Negative for injury, tw4 pain, redness, and discharge, Cardiovascular: Negative for chest pain, palpitations, and edema, Respiratory: Negative for shortness of breath, cough, wheezing, and pleuritic chest pain, Abdomen/GI: Negative for abdominal pain, nausea, vomiting, diarrhea, and constipation, Back: Negative for injury and pain, MS/Extremity: Negative for injury and deformity. 17:24 MS/extremity: Positive for swelling, tenderness. 17:24 Skin: Positive for cellulitis, erythema, Negative for abrasions, abscesses, avulsion, burn. Exam: 17:24 Constitutional: This is a well developed, well nourished patient who is awake, alert, tw4 and in no acute distress. Head/Face: Normocephalic, atraumatic. Chest/axilla: Normal chest wall appearance and motion. Nontender with no deformity. No lesions are appreciated. Cardiovascular: Regular rate and rhythm with a normal S1 and S2. No gallops, murmurs, or rubs. Normal PMI, no JVD. No pulse deficits. Respiratory: Lungs have equal breath sounds bilaterally, clear to auscultation and percussion. No rales, rhonchi or wheezes noted. No increased work of breathing, no retractions or nasal flaring. Abdomen/GI: Soft, non-tender, with normal bowel sounds. No distension or tympany. No guarding or rebound. No evidence of tenderness throughout. Back: No spinal tenderness. No costovertebral tenderness. Full range of motion. Neuro: Awake and alert, GCS 15, oriented to person, place, time, and situation. Cranial nerves II-XII grossly intact. Motor strength 5/5 in all extremities. Sensory grossly intact. Cerebellar exam normal. Normal gait. 17:24 Musculoskeletal/extremity: Extremities: abrasion, There is no evidence of bite, contusion, decreased ROM, deformity, ecchymosis, erythema, laceration, pain. Vital Signs: 10:58 BP 210 / 105; Pulse 79; Resp 16 S; Temp 98.5(O); Pulse Ox 99% on R/A; Weight 58.97 kg ca1 (R); Height 5 ft. 2 in. (157.48 cm) (R); Pain 10/10; 13:43 BP 198 / 90; Pulse 70; Resp 18 S; Pulse Ox 100% on R/A; jd3 15:02 BP 109 / 62; Pulse 77; Resp 16 S; Pulse Ox 99% on R/A; jd3 15:56 BP 131 / 82; Pulse 76; Resp 16 S; Pulse Ox 99% on R/A; jd3 17:14 BP 112 / 60; Pulse 80; Resp 17 S; Pulse Ox 100% on R/A; jd3 18:26 BP 125 / 67; Pulse 83; Resp 16 S; Pulse Ox 100% on R/A; jd3 19:59 BP 164 / 97; Pulse 80; Resp 18; Pulse Ox 98% ; ea 10:58 Body Mass Index 23.78 (58.97 kg, 157.48 cm) ca1 MDM: 13:57 Patient medically screened. tw4 17:24 Differential diagnosis: abscess, allergic reaction, cellulitis. Data reviewed: vital tw4 signs, nurses notes. Data reviewed: lab test result(s), CBC, electrolytes, hepatic panel, radiologic studies, plain films. Data interpreted: Pulse oximetry: Interpretation: normal. Test interpretation: by ED physician or midlevel provider: plain radiologic studies. Counseling: I had a detailed discussion with the patient and/or guardian regarding: the historical points, exam findings, and any diagnostic results supporting the discharge/admit diagnosis, the presence of at least one elevated blood pressure reading (>120/80) during this emergency department visit. Physician consultation: Annita Simeon MD regarding admission, to the telemetry unit. patient's condition, and will see patient. 10/29 13:08 Order name: Wound Culture tw 10/29 13:08 Order name: Amylase, Serum tw 10/29 13:08 Order name: Basic Metabolic Panel [facility] 10/29 13:08 Order name: Blood Culture Adult (2) tw 10/29 13:08 Order name: CBC with Diff; Complete Time: 14:32 [facility] 10/29 13:08 Order name: LFT's tw 10/29 13:08 Order name: Lipase tw 10/29 13:08 Order name: Procalcitonin tw 10/29 13:08 Order name: Protime (+inr); Complete Time: 14:32 [facility] 10/29 13:08 Order name: Ptt, Activated; Complete Time: 14:32 4 10/29 13:08 Order name: Urine Microscopic Only tw 10/29 13:08 Order name: Wound Culture [facility] 10/29 13:08 Order name: Amylase [facility] 10/29 14:38 Order name: COVID-19 : Document "Date of Symptom Onset" if Symptomatic. 10/29 11:22 Order name: XRAY Knee LEFT 3 view; Complete Time: 13:06 jd3 10/29 14:39 Order name: CORONAVIRUS [facility] 10/29 14:54 Order name: CBC with Automated Diff [facility] 10/29 14:54 Order name: Comprehensive Metabolic Panel [facility] 10/29 14:54 Order name: Comprehensive Metabolic Panel [facility] 10/29 14:54 Order name: Troponin I [facility] 10/29 14:54 Order name: Troponin I [facility] 10/29 14:54 Order name: Troponin I [facility] 10/29 14:55 Order name: CBC with Automated Diff [facility] 10/29 15:44 Order name: Folic Acid, (Folate) [facility] 10/29 15:44 Order name: Vitamin B12 Level [facility] 10/29 15:44 Order name: Ferritin [facility] 10/29 15:44 Order name: Hemoglobin A1c [facility] 10/29 15:44 Order name: Transferrin Sat/Iron Binding [facility] 10/29 15:44 Order name: CT RIGHT FEMUR WO CONTRAST [facility] 10/29 16:32 Order name: SARS-COV-2 RT PCR [facility] 10/29 13:08 Order name: Cardiac monitoring; Complete Time: 13:38 tw4 10/29 13:08 Order name: IV Saline Lock - Large Bore; Complete Time: 13:38 tw4 10/29 13:08 Order name: Labs collected and sent; Complete Time: 13:38 tw4 10/29 13:08 Order name: O2 Per Protocol; Complete Time: 13:38 tw4 10/29 13:08 Order name: O2 Sat Monitoring; Complete Time: 13:38 tw4 10/29 14:54 Order name: CONS Physician Consult [facility] 10/29 16:29 Order name: Diet Renal; Complete Time: 16:30 jd3 10/29 17:24 Order name: CT EDMS EC:36 Rate is 76 beats/min. Rhythm is regular. QRS [place] is Normal. WI interval is normal. QRS tw4 interval is normal. QT interval is normal. No ST changes noted. Clinical impression: NSR w/ Non-specific ST/T Changes. Interpreted by me. Reviewed by me. Administered Medications: 11:41 Drug: Tylenol 1000 mg Route: PO; jd3 14:03 Drug: [place] (HYDROcodone-acetaminophen) 5 mg-325 mg 1 tabs Route: PO; jd3 15:00 Follow up: Response: No adverse reaction; RASS: Alert and Calm (0) jd3 14:04 Drug: hydrALAZINE 20 mg Route: IV; Rate: calculated rate; Site: left forearm; jd3 18:29 Follow up: Response: No adverse reaction; Marked relief of symptoms; Blood pressure is jd3 lowered; IV Status: Completed infusion 14:38 Drug: vancoMYCIN 1 grams Route: IVPB; Infused Over: 2 hrs; Site: left forearm; jd3 16:30 Follow up: Response: No adverse reaction; IV Status: Completed infusion jd3 Disposition: 10/29/20 13:57 Hospitalization ordered by Annita Simeon for Inpatient Admission. Preliminary diagnosis are Osteomyelitis, unspecified, Anemia, unspecified. - Bed requested for Telemetry/MedSurg (Inpatient). - Status is Inpatient Admission. ea - Condition is Stable. - Problem is new. - Symptoms have improved. Signatures: Dispatcher [employer] EDMS Leslie Ulloa, RN Christie Castro RN RN ea Davies, Jonathon, RN RN jd3 Nic Butcher MD MD tw4 Hailee Munguia RN RN ca1 Corrections: (The following items were deleted from the chart) 17:45 13:57 Hospitalization Ordered by Annita Simeon MD for Inpatient Admission. Preliminary diagnosis is Osteomyelitis, unspecified; Anemia, unspecified. Bed requested for Telemetry/MedSurg (Inpatient). Status is Inpatient Admission. Condition is Stable. Problem is new. Symptoms have improved. tw4 20:54 17:45 10/29/2020 13:57 Hospitalization Ordered by Annita Simeon MD for Inpatient ea Admission. Preliminary diagnosis is Osteomyelitis, unspecified; Anemia, unspecified. Bed requested for Telemetry/MedSurg (Inpatient). Status is Inpatient Admission. Condition is Stable. Problem is new. Symptoms have improved. dw
[2020-10-29] MEDS ORDERED: VANCOMYCIN/NS 1 gm 1 GM/250 ML BAG IV ONE (14:00)
[2020-10-29 14:01] LABS: Protime INR 0.93
[2020-10-29] MEDS ORDERED: HYDRALAZINE HCL 20 MG/ML VIAL ONE (14:07)
[2020-10-29] MEDS ORDERED: HYDROCODONE/APAP 5/325 MG TAB ONE (14:13)
[2020-10-29 14:33] LABS: Albumin 2.5 g/dL (3.4-5.0); Bilirubin Direct 0.1 mg/dL (0-0.2); Bilirubin Total 0.3 mg/dL (0.2-1.0); Potassium 3.5 mmol/L (3.5-5.1); Protein, Total 7.5 g/dL (6.4-8.2)
[2020-10-29] MEDS ORDERED: ALBUTEROL 2.5 MG/3 ML NEB SOL NEB PRN (14:48)
[2020-10-29] MEDS ORDERED: ACETAMINOPHEN 500 MG TAB PO PRN (14:48)
[2020-10-29] MEDS ORDERED: guaiFENesin 100 MG/5 ML UCUP PO PRN (14:51)
[2020-10-29] MEDS: POTASSIUM 25 MEQ EFFERV TAB PO ONE ×2 (15:00→21:49)
--- NOTE | 2020-10-29 15:51 | P.HP ---
Certification for Inpatient With expected LOS: >2 Midnights Patient will require the following post-hospital care: None Practitioner: I am a practitioner with admitting privileges, knowledge of patient current condition, hospital course, and medical plan of care. Services: Services provided to patient in accordance with Admission requirements found in Title 42 Section 412.3 of the Code of Federal Regulations Patient History Date of Service: 10/29/20 Reason for admission: Left leg stump ulcer History of Present Illness: 69-year-old male past medical history of hypertension, diabetes mellitus on metformin, history of PVD status post left BKA due to gangrene 3 years ago, chronic tobacco use, former alcoholic presented to the hospital because of increasing pain and new ulcer over the left BKA stump. Patient uses prosthesis. He states pain has been worsening and affecting his ability to ambulate. He rates pain Ativan 8/10. On the he denies any fever or chills. On arrival her x-ray of the knee shows possible osteomyelitis. he has been admitted for further workup. He denies any history of CAD or CHF. His he states he has been for he has some kidney impairment but has not seen a medical records library professor. Allergies Penicillins Allergy (Intermediate, Verified 03/03/19 18:20) Rash Home Medications: Metoprolol Tartrate [Lopressor*] 25 mg PO BID 6AM 6PM 01/26/20 lisinopriL [Prinivil*] 10 mg PO DAILY 01/26/20 Folic Acid 1 mg PO DAILY #30 tablet 01/29/20 Furosemide [Lasix*] 20 mg PO DAILY PRN #30 tab 01/29/20 Glimepiride 1 mg PO DAILY #30 tablet 01/29/20 Guaifenesin [Mucinex] 600 mg PO BID PRN #15 tab.er.12h 01/29/20 Pantoprazole [Protonix Tab*] 40 mg PO BIDAC #60 tab 01/29/20 levoFLOXacin [Levaquin*] 500 mg PO DAILY #5 tab 01/29/20 Gabapentin 1 tab PO TID 02/04/20 Metformin ER [Glucophage ER*] 1,000 mg PO BID 02/04/20 Metoprolol Tartrate [Lopressor*] 25 mg PO BID 30 Days #60 tab 02/04/20 Metoprolol Tartrate [Lopressor*] 25 mg PO BID 6AM 6PM tab 02/04/20 - Past Medical/Surgical History Diabetic: Yes -: Diabetes mellitus type 2, [id number] -: DM-NIDDM -: Alcohol Abuse -: Tobacco Abuse -: Hypertension -: Chronic pain -: Chronic sacral ulcer -: Left Knee Surgery -: Left BKA with Prosthetic blood -: surg wnd on coccyx wound Psychosocial/ Personal History: He is , has 4 children. He is disabled. - Family History Father -: Heart disease, Hypertension, Diabetes, Cancer Mother -: Diabetes, Stroke - Social History Alcohol use: Yes CD- Drugs: No Caffeine use: No Review of Systems 10-point ROS is otherwise unremarkable Physical Examination - Physical Exam General: Alert, In no apparent distress, Oriented x3, Cachectic HEENT: Normocephalic, PERRLA Neck: Supple, 2+ carotid pulse no bruit, JVD not distended Respiratory: Clear to auscultation bilaterally, Normal air movement Cardiovascular: No edema, Normal pulses, Regular rate/rhythm, Normal S1 S2 Gastrointestinal: Normal bowel sounds, Soft and benign, Non-distended Musculoskeletal: No clubbing, No swelling Integumentary: Skin breakdown (coin shaped ulcer at base of left BKA stump , tenderness over area ), Diabetic ulcer Neurological: Normal speech, Normal strength at 5/5 x4 extr, Normal tone - Studies Laboratory Data (last 24 hrs) 10/29/20 13:34: PT 10.7, INR 0.93, APTT 24.2 L 10/29/20 13:34: WBC 6.20, Hgb 7.1 L*, Hct 21.4 L, Plt Count 163 10/29/20 13:34: Sodium 141, Potassium 3.5, BUN 40 H, Creatinine 1.92 H, Glucose 104, Total Bilirubin 0.3, AST 25, ALT 16, Alkaline Phosphatase 151 H, Amylase 140 H, Lipase 553 H Assessment and Plan - Problems (Diagnosis) (1) Anemia Current Visit: No Status: Acute Qualifiers: Anemia type: iron deficiency Iron deficiency anemia type: unspecified iron deficiency Qualified Code(s): D50.9 - Iron deficiency anemia, unspecified (2) History of gastric ulcer Current Visit: No Status: Acute (3) Hypokalemia Current Visit: No Status: Acute (4) Diabetes mellitus Onset Date: 08/08/16 Current Visit: No Status: Chronic Qualifiers: Diabetes mellitus type: type 2 Diabetes mellitus penitentiary insulin use: unspecified penitentiary insulin use status Diabetes mellitus complication status: with skin complications Diabetes mellitus complication detail: with other skin complication Qualified Code(s): E11.628 - Type 2 diabetes mellitus with other skin complications (5) BPH (benign prostatic hyperplasia) Current Visit: No Status: Suspected Qualifiers: Lower urinary tract symptom presence: symptoms present Lower urinary tract symptom detail: urinary retention Qualified Code(s): N40.1 - Benign prostatic hyperplasia with lower urinary tract symptoms; R33.8 - Other retention of urine (6) BKA stump complication Current Visit: No Status: Resolved - Advance Directives Does patient have a Living Will: No Does patient have a Durable POA for Healthcare: No Physician Review: Patient Assessed, Agree with Above Assessment and Plan Physician Review Additional Text: LEFT BKA STUMP ULCER-with associated osteomyelitis, will obtain CT to further evaluate 0 stool Many bone scan Will consult ID/Wound Care-Dr. Kai Griffin Start empirical Zosyn for now. start vancomycin 1 g daily-pharmacy to dose. Obtain blood culture follow-up Need for prolonged antibiotics use discuss consult case management #diabetes mellitus-we will hold metformin given impaired renal function. Start glyburide Insulin sliding scale with Accu-Cheks # chronic kidney disease stage 4-creatinine at baseline of 1.9 Will need nephrology follow-up Renally dose all medications Avoid Vanco toxicity #Hypertension-controlled next # chronic tobacco use-will do nicotine patch, cessation advised # anemia-with hemoglobin of 7.1, follow repeat in a.m. May need PRBC if further trend obtain iron level Giving history of GI bleed will obtain fecal occult blood testing
[2020-10-29] MEDS: Ringers Lactate 1,000 ML IV SCH ×2 (16:00→21:48)
[2020-10-29] MEDS: NICOTINE 21 MG/PAT TD SCH ×2 (16:00→21:49)
[2020-10-29] MEDS: INSULIN -REGULAR HUMAN 50 UNIT/0.5 ML ML SQ SCH ×2 (16:30→21:00)
[2020-10-29] MEDS: VANCOMYCIN 500 MG in NA CHLORIDE 0.9% 100 ML IVPB ONE ×2 (17:00→21:50)
[2020-10-29] MEDS ORDERED: glyBURIDE 2.5 MG TAB PO SCH (17:00)
[2020-10-29 17:01] LABS: Ferritin 17.1 ng/mL (26-388); Folic Acid, (Folate) 16.3 ng/mL (3.1-17.5)
--- NOTE | 2020-10-29 17:24 | RAD REPORT ---
EXAM DESCRIPTION: CT - Knee Left Wo Con - 10/29/2020 4:53 pm CLINICAL HISTORY: r/o osteomyelitiscellulitis, poorly healing wound at the amputation site COMPARISON: Knee Left 3 View dated 10/29/2020 TECHNIQUE: Axial noncontrast 2 millimeter thick images of the left knee performed. Imaging extended from distal thigh beyond the amputation stump. Sagittal and coronal reconstruction images were genera altagracia and reviewed. The CT scan was performed using dose optimization techniques as appropriate to a performed exam incl uding one or more of the following: Automated exposure control, adjustment of the mA and/or kV accord ing to patient size (this includes techniques or standardized protocols for targeted exams where dose is matched to indication/reason for exam) and use of iterative reconstruction technique. FINDINGS: Small joint effusion present at the knee. Knee joint degenerative changes are mild. Patien t has dense arterial tree calcifications. Bone erosive changes are present along the medial margin of the bony amputation site. Periosteal reac tive changes are present as well. Soft tissues are thickened and edematous primarily along the medial and posterior aspect of the amputation site soft tissues. Several punctate air densities are present in the soft tissues. No abscess or drainable fluid collection identifiable. IMPRESSION: Osteomyelitis changes are present at the amputation site. Soft tissue swelling and edema with punctate air densities present deep to a medial wound site. No dr ainascottie fluid collection identified.
[2020-10-29] MEDS: PIPER/TAZO/NS 2.25gm 2.25 GM/50 ML BAG IVPB SCH ×2 (18:00→23:04)
[2020-10-29] MEDS: HEPARIN 5000 UNIT/ML 1 ML VIAL SQ SCH (21:51)
[2020-10-29] MEDS: MORPHINE 2 MG/ML SYR IV PRN (22:43)
[2020-10-29] MEDS ORDERED: PIPER/TAZO/NS 2.25gm 2.25 GM/50 ML BAG ONE (22:45)
[2020-10-30] MEDS: Ringers Lactate 1,000 ML IV SCH ×2 (01:54→12:21)
[2020-10-30 02:25] VITALS: BMI 23.8
[2020-10-30] MEDS: MORPHINE 2 MG/ML SYR IV PRN ×3 (02:53→13:39)
[2020-10-30] MEDS ORDERED: PIPER/TAZO/NS 2.25gm 2.25 GM/50 ML BAG ONE (04:21)
[2020-10-30] MEDS: PIPER/TAZO/NS 2.25gm 2.25 GM/50 ML BAG IVPB SCH ×3 (05:02→17:00)
[2020-10-30 06:29] LABS: Absolute Lymphocytes (CBC) 0.7 K/uL (0.7-4.9); Basophils % 0.8 % (0-1.3); Hematocrit 23.1 % (39.6-49.0); Lymphocytes % 14.8 % (15.3-44.8); MPV 8.6 fL (7.6-11.3); RBC Red Blood Cell Count 2.87 M/uL (4.33-5.43)
[2020-10-30 06:43] LABS: ALT/SGPT 14 U/L (12-78); AST/SGOT 21 U/L (15-37); Albumin 2.2 g/dL (3.4-5.0); Alkaline Phosphatase 109 U/L (45-117); BUN Blood Urea Nitrogen 40 mg/dL (7-18); Bicarbonate 23 mmol/L (21-32); Bilirubin Total 0.4 mg/dL (0.2-1.0); Glucose Level 95 mg/dL (74-106); Lipase 298 U/L (73-393); Potassium 3.9 mmol/L (3.5-5.1); Protein, Total 6.7 g/dL (6.4-8.2); Sodium Level 139 mmol/L (136-145)
[2020-10-30 06:49] LABS: C-Reactive Protein < 2.90 mg/L (<3.00)
[2020-10-30] MEDS: INSULIN -REGULAR HUMAN 50 UNIT/0.5 ML ML SQ SCH ×4 (07:30→20:37)
[2020-10-30] MEDS ORDERED: glyBURIDE 2.5 MG TAB PO SCH (08:00)
[2020-10-30] MEDS: ASPIRIN EC 81 MG TAB PO SCH (08:31)
[2020-10-30] MEDS: NICOTINE 21 MG/PAT TD SCH (08:31)
[2020-10-30] MEDS: FOLIC ACID 1 MG TABLET PO SCH (08:31)
[2020-10-30] MEDS: HEPARIN 5000 UNIT/ML 1 ML VIAL SQ SCH ×2 (08:32→20:05)
[2020-10-30] MEDS ORDERED: PNEUMOCOCCAL VACCINE 0.5 ML IMVAC ONE (11:00)
--- NOTE | 2020-10-30 15:15 | CON ---
Date of Consultation: 10/30/2020 Diagnosis: Decubitus ulcer on the left stump. History Of Present Illness: This is a case of a 69-year-old patient with multiple medical problems, comes to us with an ulcer about 2 x 2 cm in the anterior aspect of the left BKA. That BKA was done a bout 3 years ago. He has been using the prosthetic since then. He has been advised to come to the [facility], but he has not been able to do so, because before that he has to go to his [facility] doctor and he does not want to go to be checked, for that reason he does not get the referral and then he comes to the hospital with this disease and he was admitted to the hospital. Surgical consul t was obtained for the ulcer. Allergies: INCLUDE PENICILLIN. Past Medical History: Peripheral vascular disease, diabetes, hypertension. Social History: Alcohol abuse, tobacco abuse. Family History: Heart disease, diabetes. Review of Systems: Ten points otherwise unremarkable. Physical Examination: General: The patient is awake and alert, no distress. HEENT: Pupils anicteric. Neck: Supple. Chest: Clear. Abdomen: Soft and depressible. Extremities: The patient has a below-knee amputation. There is an anterior ulceration about 2 x 2 c m. No fluctuance. No crepitus. No bone exposed. No tendon exposed. No necrotic tissue present. No purulent discharge. Imaging: The patient has a CAT scan of the knee shows suspicion for osteomyelitis. Laboratory Data: Blood work was reviewed. Plan: Off loading the area including offloading from the prosthetic. We should use Santyl at this m oment since there is a fibrin present over the area, but no need for surgical debridement at this siena e. Offloading is the most important thing at this moment, since we believe is the cause of this ulce ration. Obviously diabetes in control and smoking cessation was recommended and counseled to the pat ient. Formal study to rule out osteomyelitis was recommended, incase bone scan or MRI. No surgical intervention at this moment. HM/MODL Voice ID: [id number] Report ID: [id number]
[2020-10-30] MEDS: glipiZIDE 5 MG TAB PO SCH (17:00)
[2020-10-30] MEDS: carvediloL 12.5 MG TAB PO SCH (17:17)
[2020-10-30] MEDS: HYDROMORPHONE HCL 1 MG/ML INJ IV PRN (17:18)
--- NOTE | 2020-10-30 17:18 | P.PN ---
Subjective Date of Service: 10/30/20 Chief Complaint: Left leg stump ulcer Subjective: No new changes (reports feeling ok, occasional pains in L BKA stump) Physical Examination - Vital Signs Temperature: 98.2 F Blood Pressure: 160/75 Pulse: 73 Respirations: 18 Pulse Ox (%): 98 - Studies Microbiology Data (last 24 hrs): 10/29/20 14:01 Wound - Left Knee Gram Stain - Final Assessment & Plan Physician Review Additional Text: Physical Exam General: Alert, NAD Respiratory: Clear to auscultation bilaterally, Normal air movement Cardiovascular: No edema, Normal pulses, Regular rate/rhythm, Normal S1 S2 Gastrointestinal: Normal bowel sounds, Soft and benign, Non-distended Integumentary: Skin breakdown round ~4cm diameter ulcer at medial base of L BKA stump, with tenderness, no active drainage Neurological: Normal speech, Normal strength at 5/5 x4 extr Problem list Left BKA stump ulcer, with concern for osteomyelitis Diabetes mellitus, [id number] CKD 4 HTN Chronic tobacco use Chronic anemia, iron deficiency CT concerning for osteomyelitis on Zosyn/Vncomycin ID consulted General surgery consulted for wound / possible abscess - recommend no surgical intervention at this time, recommends MRI of knee, difficult to delineate bony destructive changes on CT from the BKA versus osteomyelitis. f/u blood culture metformin held due to impaired renal function and switched to glyburide on admission, monitor glc nephrology consulted given patient's CKD resume home medications as appropriate anemia - hgb stable, consistent with iron deficiency Dispo: will likely need senior care antibiotics, needs MRI for further evaluation of osteomyelitis vs BKA destructive changes Time Spent Managing Pts Care (In Minutes): 35
--- NOTE | 2020-10-30 17:55 | RAD REPORT ---
EXAM DESCRIPTION: US - Renal Ultrasound-Complete - 10/30/2020 4:45 pm CLINICAL HISTORY: CKD COMPARISON: Abdomen Pelvis W Contrast dated 02/03/2020 FINDINGS: The right kidney measures 9.3 x 4.2 x 5.3 cm. The left kidney measures 9.6 x 5.2 x 4.2 ce ntimeter. Cortical thickness is normal. There is significant increase in cortical echogenicity throug hout both kidneys. This is a pattern typical for medical renal disease. No hydronephrosis or suspicious renal mass. No bladder wall thickening or mass. No intraluminal stone or mass. IMPRESSION: No hydronephrosis or suspicious renal mass. Bilateral medical renal disease evident.
--- NOTE | 2020-10-30 19:45 | CON ---
Date of Consultation: 10/30/2020 Reason For Consult: Acute on chronic renal insufficiency. History Of Present Illness: Mr. 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 He presented to [facility] because of increasing pain and ulcer over hi s stump of the left BKA. The patient uses a prostheses and states that his pain has been worsening a nd he is unable to tolerate the pain. He has been admitted for possible osteomyelitis and has been s tarted on IV antibiotics. Currently, he is complaining of severe sharp shooting pain in his left low er extremity stump and is requesting his pain medicines to be changed. He denies any NSAID use and h e states that he has had prolonged history of diabetes, but no history of renal impairment that he is aware of. He sees Dr. Mera as outpatient for his management of his chronic problems. Past Medical History: Significant for history of type 2 diabetes, non-insulin dependent, history of tobacco and alcohol abuse, hypertension, chronic pain, chronic sacral ulcer, left knee surgery, left BKA with prosthetic wound, surgical wound on the coccyx. Social History: He is , has 4 children, and he is disabled. Family History: Significant for history of heart disease and hypertension in his father. Mother wit h history of diabetes and stroke. Review of Systems: Positive for severe pain in his left lower extremity. Denies any chest pain. Denies any abdominal p ain. Denies any nausea, vomiting. All other review of systems are negative. Physical Examination: Vital Signs: At this time are showing temperature of 98.2, pulse rate of 73, respiratory rate of 18, and blood pressure 160/75. His blood pressure logs have been reviewed and seems to be uncontrolled since yesterday. General: He appears in no acute distress. HEENT: Atraumatic head. Lungs: Clear to auscultation. Heart: Auscultation to heart revealed regular rate and rhythm. Abdomen: Soft and nontender. Extremities: Left lower extremity stump with ulcer was noted. BKA stump with ulcer was noted. Righ t lower extremity without any evidence of edema. Laboratory Data: At this time are showing sodium of 139, potassium of 3.9, chloride of 112, bicarb o f 23, BUN of 40, and creatinine of 1.97. Upon review of previous labs, he seems to have chronic CKD with a creatinine of around 1.5, but has worsened to 2.4 back in September of this year and has leveled u p at 1.9 at this time. Current Medications: Tylenol p.r.n. for pain, aspirin, folic acid, glyburide 5 mg a day with breakfa st, heparin 5000 units every 12 hours for deep vein thrombosis prophylaxis. He is only on Ringer's l actate at 100 cc an hour. Morphine p.r.n. for pain, vancomycin, and Zosyn 2.25 g every 6 hours. Imaging Studies: CT scan of the knee which shows osteomyelitis changes in the amputation site with s oft tissue swelling and edema with punctate air densities in the medial wound site. He has been eval uated by Dr. López as well and no surgical debridement is planned at this time. Wound care and an tibiotics with offloading was recommended. Impression: 1.Acute on chronic renal insufficiency, likely secondary to chronic diabetic nephropathy. We will r equest a renal ultrasound for further evaluation. The patient was on metformin previously, which is currently on hold. He is on glyburide but will need to be closely monitored for any hypoglycemic epi sodes. 2.Left lower extremity stump wound with osteomyelitis. The patient is currently on vancomycin and Z osyn, which needs to be dose adjusted for renal function. We will go ahead and decrease the Zosyn to 2.25 g every 8 hours and we will request cultures from the wound and manage antibiotics appropriatel y. 3.Type 2 diabetes. The patient was on metformin and other medications which are currently discontin ued. He may benefit from SGLT2 inhibitors in the future. 4.Hypertension, seems uncontrolled at this time, possibly from IV fluids as well as pain medications . He was on ISHAN inhibitor as outpatient, which has been discontinued. We will go ahead and get him started on antihypertensive medications with beta-blockers and discontinue IV fluids as he does not s eem to be clinically dry at this time. 5.Pain, related to stump infection. We will add some gabapentin for the pain and change him from mo rphine to Dilaudid and monitor him closely. Plan: Overall, the patient does seem to have CKD from diabetic nephropathy. Will need close outpati ent followup. We will request urinalysis and renal ultrasound for further evaluation. Adjust dosage s of antibiotics for renal function. Monitor closely for episodes of hypoglycemia with glyburide, es pecially since he has CKD. Thank you very much for this consultation. Please do not hesitate to call us with any questions or c oncerns. TARIK/MELY Voice ID: [id number] Report ID: [id number]
[2020-10-30] MEDS: GABAPENTIN 100 MG CAP PO SCH (20:05)
[2020-10-30] MEDS: HYDRALAZINE HCL 20 MG/ML VIAL IV PRN (20:13)
[2020-10-30] MEDS: HYDROCODONE/APAP 10/325 TAB PO PRN (20:33)
[2020-10-30] MEDS: ONDANSETRON 4 MG/2 ML VIAL IV PRN (21:43)
[2020-10-30] MEDS ORDERED: LABETALOL 20 MG/4ML SYRINGE IV ONE (21:47)
[2020-10-30] MEDS ORDERED: MELATONIN 5 MG TABLET PO PRN (22:20)
[2020-10-31] MEDS: PIPER/TAZO/NS 2.25gm 2.25 GM/50 ML BAG IVPB SCH ×3 (00:57→17:02)
[2020-10-31] MEDS ORDERED: NA CHLORIDE 0.9% 250 ML ONE (01:06)
[2020-10-31 02:56] LABS: Urine Appearance CLEAR (Clear); Urine Bilirubin NEGATIVE (Negative); Urine Blood NEGATIVE (Negative); Urine Color YELLOW (Yellow); Urine Glucose 1+ (Negative); Urine Protein 3+ (Negative); Urine Specific Gravity 1.015 (1.005-1.030)
[2020-10-31 04:42] LABS: Urine Bacteria <20 /HPF (NONE SEEN); Urine RBC <5 /HPF (NONE SEEN)
[2020-10-31] MEDS ORDERED: VANCOMYCIN 1 GM in NA CHLORIDE 0.9% 250 ML IVPB SCH (05:00)
[2020-10-31 05:07] LABS: Absolute Lymphocytes (CBC) 0.7 K/uL (0.7-4.9); Basophils % 0.6 % (0-1.3); Hematocrit 23.7 % (39.6-49.0); RBC Red Blood Cell Count 2.93 M/uL (4.33-5.43)
[2020-10-31 05:17] LABS: BUN Blood Urea Nitrogen 37 mg/dL (7-18); Bicarbonate 27 mmol/L (21-32); Glucose Level 128 mg/dL (74-106); Magnesium 2.3 mg/dL (1.8-2.4); Potassium 3.9 mmol/L (3.5-5.1); Sodium Level 141 mmol/L (136-145)
[2020-10-31] MEDS: carvediloL 12.5 MG TAB PO SCH ×2 (05:27→17:01)
[2020-10-31 05:32] LABS: C-Reactive Protein < 2.90 mg/L (<3.00)
[2020-10-31] MEDS: INSULIN -REGULAR HUMAN 50 UNIT/0.5 ML ML SQ SCH ×4 (07:30→20:37)
[2020-10-31] MEDS: FOLIC ACID 1 MG TABLET PO SCH (09:21)
[2020-10-31] MEDS: ASPIRIN EC 81 MG TAB PO SCH (09:21)
[2020-10-31] MEDS: NICOTINE 21 MG/PAT TD SCH (09:21)
[2020-10-31] MEDS: GABAPENTIN 100 MG CAP PO SCH ×3 (09:21→20:36)
[2020-10-31] MEDS: glipiZIDE 5 MG TAB PO SCH ×2 (09:21→17:01)
[2020-10-31] MEDS: COLLAGENASE 30 GM OINTMENT TOP SCH (09:22)
[2020-10-31] MEDS: HEPARIN 5000 UNIT/ML 1 ML VIAL SQ SCH ×2 (09:22→20:36)
[2020-10-31] MEDS: HYDROCODONE/APAP 10/325 TAB PO PRN ×2 (09:43→17:01)
--- NOTE | 2020-10-31 14:11 | P.PN ---
Subjective Date of Service: 10/31/20 Chief Complaint: Left leg stump ulcer Subjective: Improving (feeling better today, pain is less severe, slept ok, no nauesa/vomiting, no diarrhea) Review of Systems 10-point ROS is otherwise unremarkable Physical Examination - Vital Signs Temperature: 98.0 F Blood Pressure: 145/77 Pulse: 71 Respirations: 16 Pulse Ox (%): 96 - Studies Microbiology Data (last 24 hrs): 10/29/20 14:01 Wound - Left Knee Gram Stain - Final 10/29/20 14:01 Wound - Left Knee Culture & Sensitivity - Final Assessment & Plan Physician Review Additional Text: Physical Exam General: Alert, NAD Respiratory: Clear to auscultation bilaterally, Normal air movement Cardiovascular: No edema, Normal pulses, Regular rate/rhythm, Normal S1 S2 Gastrointestinal: Soft and benign, Non-distended Integumentary: ~round ~4cm diameter ulcer at medial base of L BKA stump, with tenderness, no active drainage Ext: 2+ DP on right Neurological: Normal speech, Normal strength at 5/5 x4 extr. RLE: parasthesia / decreased sensation of RLE from ankle down Problem list Left BKA stump ulcer, with concern for osteomyelitis Diabetes mellitus, [id number] CKD 4 HTN Chronic tobacco use Chronic anemia, iron deficiency CT concerning for osteomyelitis; on Zosyn/Vancomycin; ID consulted General surgery consulted for wound / possible abscess - recommend no surgical intervention at this time, recommends MRI of knee, difficult to delineate bony destructive changes on CT from the BKA versus osteomyelitis. 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 Time Spent Managing Pts Care (In Minutes): 35
--- NOTE | 2020-10-31 15:26 | PN ---
Date of Progress Note: 10/31/2020 Subjective: The patient was seen and examined at bedside. He states that his pain is better control led. Physical Examination: Vital Signs: Have been reviewed and are stable. No hypotensive events were noted. General: He appears in no acute distress. Lungs: Clear to auscultation. Abdomen: Soft and nontender. Extremities: Left lower extremity with stump noted. Laboratory Data: At this time showing creatinine worsening to 2.1, sodium of 141, potassium of 3.9, bicarb of 27, and chloride of 110. CBC showed stable hemoglobin, hematocrit, and platelet count. Current Medications: Include aspirin, acetaminophen, folic acid, gabapentin, glipizide, Dilaudid p.r .n. for pain, labetalol 1 time dose was given, vancomycin, and Zosyn 2.25 g every 8 hours. Impression: 1.Acute on chronic renal insufficiency, possibly secondary to underlying diabetic nephropathy. We h ave requested a renal ultrasound for further evaluation, which is showing no hydronephrosis or suspic ious renal mass and bilateral medical renal disease. The patient is getting Zosyn at this time. We will continue to monitor renal function and if it gets worse, may need to change the antibiotics also . 2.Left lower extremity stump with possible osteomyelitis. Continue wound care, antibiotics, and mon itor. 3.Hypertension, well controlled. Not on any ISHAN inhibitors or ARBs. 4.Type 2 diabetes, currently on glipizide. Plan: Overall, the patient is clinically stable. Continue to monitor closely. Continue antibiotics and if renal function worsens, we will consider changing antibiotics to prevent the interstitial nep hritis. VV/MODL Voice ID: [id number] Report ID: [id number]
--- NOTE | 2020-10-31 16:38 | PN ---
Date of Progress Note: 10/31/2020 Diagnosis: Left stump ulcer. Subjective: The patient feels better. Physical Examination: Abdomen: Soft and depressible. Extremities: Intact ulcer site. Plan: We will continue with [place]. He was advised the importance of offloading and diabetes contro l. He has an MRI pending tomorrow to see if he has osteomyelitis. If he has confirmation of osteomy elitis, that may change the care. If he does not have osteomyelitis, then he can be go home on Ramon l and [facility]. CHAKA/BGL Voice ID: [id number] Report ID: [id number]
[2020-11-01] MEDS: PIPER/TAZO/NS 2.25gm 2.25 GM/50 ML BAG IVPB SCH ×2 (00:11→10:03)
--- NOTE | 2020-11-01 04:30 | P.CNS ---
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 Pt presented to the hospital for left BKA stump pain and new ulcer to stump. Patient currently uses prosthesis to assist with ambulation. X-ray of the knee shows possible osteomyelitis. Allergies Penicillins Allergy (Intermediate, Verified 03/03/19 18:20) Rash Home Medications: NK [No Home Meds] 10/29/20 - Past Medical/Surgical History Diabetic: Yes -: Diabetes mellitus type 2, [id number] -: DM-NIDDM -: Alcohol Abuse -: Tobacco Abuse -: Hypertension -: Chronic pain -: Chronic sacral ulcer -: Left Knee Surgery -: Left BKA with Prosthetic blood -: surg wnd on coccyx wound Psychosocial/ Personal History: He is , has 4 children. He is disabled. - Family History Father Medical History: Heart disease, Hypertension, Diabetes, Cancer Mother Medical History: Diabetes, Stroke - Social History Smoking Status: Current some day smoker Alcohol use: Yes CD- Drugs: No Caffeine use: No Place of Residence: Home Review of Systems 10-point ROS is otherwise unremarkable Physical Examination Temp Pulse Resp BP Pulse Ox 97.5 F 66 16 150/72 H 96 11/01/20 00:00 11/01/20 00:00 11/01/20 00:00 11/01/20 00:00 11/01/20 00:00 General: Oriented x3 HEENT: Normocephalic, PERRLA Neck: Supple Respiratory: Normal air movement Cardiovascular: No edema, Normal pulses Gastrointestinal: Soft and benign Musculoskeletal: Other (left BKA stump ) Integumentary: Other (ulcer to left BKA stump and coccyx ) Neurological: Normal speech Conclusions/Impression: Pt has current order of Santyl to left BKA stump wound. He has an MRI pending to verify osteomyelitis. Pt currently on IV Vancomycin and Zosyn. Wound culture shows gram positive cocci in clusters. Pt is being seen by nephrology for his CKD. Continue to monitor labs. Monitor for signs and symptoms of worsening infection. Plan discussed with Dr. Payton. Thank you for the consult. Time Spent Managing Pts care (In Minutes): 35
[2020-11-01] MEDS: carvediloL 12.5 MG TAB PO SCH ×2 (05:21→17:55)
[2020-11-01 06:19] LABS: Magnesium 2.2 mg/dL (1.8-2.4); Potassium 4.1 mmol/L (3.5-5.1)
[2020-11-01 06:21] LABS: Absolute Lymphocytes (CBC) 0.9 K/uL (0.7-4.9); Basophils % 0.6 % (0-1.3); Hematocrit 22.3 % (39.6-49.0); Lymphocytes % 12.2 % (15.3-44.8); MPV 9.3 fL (7.6-11.3); RBC Red Blood Cell Count 2.74 M/uL (4.33-5.43)
[2020-11-01] MEDS: INSULIN -REGULAR HUMAN 50 UNIT/0.5 ML ML SQ SCH ×4 (07:30→21:00)
[2020-11-01] MEDS: COLLAGENASE 30 GM OINTMENT TOP SCH (09:00)
[2020-11-01] MEDS: NICOTINE 21 MG/PAT TD SCH (10:03)
[2020-11-01] MEDS: HEPARIN 5000 UNIT/ML 1 ML VIAL SQ SCH ×2 (10:04→20:30)
[2020-11-01] MEDS: ASPIRIN EC 81 MG TAB PO SCH (10:05)
[2020-11-01] MEDS: FOLIC ACID 1 MG TABLET PO SCH (10:05)
[2020-11-01] MEDS: GABAPENTIN 100 MG CAP PO SCH ×3 (10:05→20:29)
[2020-11-01] MEDS: glipiZIDE 5 MG TAB PO SCH ×2 (10:05→17:55)
[2020-11-01] MEDS: HYDROMORPHONE HCL 1 MG/ML INJ IV PRN ×3 (10:08→23:03)
--- NOTE | 2020-11-01 12:54 | P.PN ---
Subjective Date of Service: 11/01/20 Chief Complaint: Left leg stump ulcer Subjective: No new changes (continues with pain at BKA site, awaiting MRI, no new complaints) Review of Systems 10-point ROS is otherwise unremarkable Physical Examination - Vital Signs Temperature: 98.0 F Blood Pressure: 144/75 Pulse: 73 Respirations: 18 Pulse Ox (%): 95 - Studies Microbiology Data (last 24 hrs): 10/29/20 14:01 Wound - Left Knee Gram Stain - Final 10/29/20 14:01 Wound - Left Knee Culture & Sensitivity - Final Assessment & Plan Physician Review Additional Text: Physical Exam General: Alert, NAD Respiratory: Clear to auscultation bilaterally, Normal air movement Cardiovascular: No edema, Normal pulses, Regular rate/rhythm, Normal S1 S2 Gastrointestinal: Soft and benign, Non-distended Integumentary: ~round ~4cm diameter ulcer at medial base of L BKA stump, with tenderness, no active drainage Ext: 2+ DP on right Neurological: Normal speech, Normal strength at 5/5 x4 extr. RLE: parasthesia / decreased sensation of RLE from ankle down Problem list Left BKA stump ulcer, with concern for osteomyelitis Diabetes mellitus, [id number] CKD 4 HTN Chronic tobacco use Chronic anemia, iron deficiency CT concerning for osteomyelitis; on Zosyn/Vancomycin; ID consulted General surgery consulted for wound / possible abscess - recommend no surgical intervention at this time, recommends MRI of knee, difficult to delineate bony destructive changes on CT from the BKA versus osteomyelitis. 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
--- NOTE | 2020-11-01 13:55 | P.PN ---
Subjective Date of Service: 11/01/20 Chief Complaint: Left leg stump ulcer Patient seen examined at bedside with no acute complaints. He states appetite has been normal. He denies nausea, vomiting, diarrhea, shortness breath and chest pain. Antibiotics changed from Zosyn to meropenem due to renal function. Review of Systems 10-point ROS is otherwise unremarkable Physical Examination - Vital Signs Temperature: 98.0 F Blood Pressure: 144/75 Pulse: 73 Respirations: 18 Pulse Ox (%): 95 - Physical Exam General: Alert, In no apparent distress HEENT: Atraumatic, Normocephalic Neck: Supple, 2+ carotid pulse no bruit Respiratory: Clear to auscultation bilaterally, Normal air movement Cardiovascular: No edema, Normal pulses Capillary refill: <2 Seconds Gastrointestinal: Normal bowel sounds, Soft and benign Musculoskeletal: No clubbing, No swelling Integumentary: Other (Left BKA, I am small ulceration on left BKA.) - Studies Temp Pulse Resp BP Pulse Ox 98.0 F 73 18 144/75 H 95 11/01/20 13:46 11/01/20 13:46 11/01/20 13:46 11/01/20 13:46 11/01/20 13:46 Laboratory Last Values WBC 6.20 K/uL (4.3-10.9) 10/29/20 13:34 RBC 2.66 M/uL (4.33-5.43) L 10/29/20 13:34 Hgb 7.1 g/dL (13.6-17.9) L* 10/29/20 13:34 Hct 21.4 % (39.6-49.0) L 10/29/20 13:34 MCV 80.5 fL (80-100) D 10/29/20 13:34 MCH 26.6 pg (27.0-35.0) L 10/29/20 13:34 MCHC 33.0 g/dL (32.0-36.0) 10/29/20 13:34 RDW 14.3 % (12.1-15.2) 10/29/20 13:34 Plt Count 163 K/uL (152-406) 10/29/20 13:34 MPV 8.7 fL (7.6-11.3) 10/29/20 13:34 Neutrophils % 75.4 % (41.7-73.7) H 10/29/20 13:34 Lymphocytes % 16.1 % (15.3-44.8) 10/29/20 13:34 Monocytes % 6.8 % (3.3-12.3) 10/29/20 13:34 Eosinophils % 1.2 % (0-4.4) 10/29/20 13:34 Basophils % 0.5 % (0-1.3) 10/29/20 13:34 Absolute Neutrophils 4.7 K/uL (1.8-8.0) 10/29/20 13:34 Absolute Lymphocytes 1.0 K/uL (0.7-4.9) 10/29/20 13:34 Absolute Monocytes 0.4 K/uL (0.1-1.3) 10/29/20 13:34 Absolute Eosinophils 0.1 K/uL (0-0.5) 10/29/20 13:34 Absolute Basophils 0.0 K/uL (0-0.5) 10/29/20 13:34 PT 10.7 SECONDS (9.5-12.5) 10/29/20 13:34 INR 0.93 10/29/20 13:34 APTT 24.2 SECONDS (24.3-36.9) L 10/29/20 13:34 Sodium 141 mmol/L (136-145) 10/29/20 13:34 Potassium 3.5 mmol/L (3.5-5.1) 10/29/20 13:34 Chloride 108 mmol/L (98-107) H 10/29/20 13:34 Carbon Dioxide 24 mmol/L (21-32) 10/29/20 13:34 BUN 40 mg/dL (7-18) H 10/29/20 13:34 Creatinine 1.92 mg/dL (0.55-1.3) H 10/29/20 13:34 Estimated GFR 35 mL/min (=/>90) L 10/29/20 13:34 Glucose 104 mg/dL (74-106) 10/29/20 13:34 Calcium 8.3 mg/dL (8.5-10.1) L 10/29/20 13:34 Total Bilirubin 0.3 mg/dL (0.2-1.0) 10/29/20 13:34 Direct Bilirubin 0.1 mg/dL (0-0.2) 10/29/20 13:34 AST 25 U/L (15-37) 10/29/20 13:34 ALT 16 U/L (12-78) 10/29/20 13:34 Alkaline Phosphatase 151 U/L (45-117) H 10/29/20 13:34 Serum Total Protein 7.5 g/dL (6.4-8.2) 10/29/20 13:34 Albumin 2.5 g/dL (3.4-5.0) L 10/29/20 13:34 Globulin 5.0 g/dL (2.3-3.5) H 10/29/20 13:34 Albumin/Globulin Ratio 0.5 (1.1-1.8) L 10/29/20 13:34 Amylase 140 U/L (25-115) H 10/29/20 13:34 Lipase 553 U/L (73-393) H 10/29/20 13:34 Procalcitonin 0.05 ng/mL (<0.050) 10/29/20 13:34 Urine RBC Cancelled 10/29/20 13:08 Urine WBC Cancelled 10/29/20 13:08 Ur Squamous Epith Cells Cancelled 10/29/20 13:08 Ur Urothelial Cells Cancelled 10/29/20 13:08 Calcium Oxalate Crystal Cancelled 10/29/20 13:08 Uric Acid Crystals Cancelled 10/29/20 13:08 Triple Phos Crystals Cancelled 10/29/20 13:08 Other Crystals Cancelled 10/29/20 13:08 Amorphous Sediment Cancelled 10/29/20 13:08 Glitter Cells Cancelled 10/29/20 13:08 Urine Bacteria Cancelled 10/29/20 13:08 Hyaline Casts Cancelled 10/29/20 13:08 Fine Granular Casts Cancelled 10/29/20 13:08 Coarse Granular Casts Cancelled 10/29/20 13:08 Waxy Casts Cancelled 10/29/20 13:08 RBC Casts Cancelled 10/29/20 13:08 WBC Casts Cancelled 10/29/20 13:08 Urine Mucus Cancelled 10/29/20 13:08 Urine Other Cancelled 10/29/20 13:08 Urine Trichomonas Cancelled 10/29/20 13:08 Urine Yeast Cancelled 10/29/20 13:08 Ur Yeast w Hyphae Cancelled 10/29/20 13:08 Urine Yeast (Budding) Cancelled 10/29/20 13:08 Urine Sperm Cancelled 10/29/20 13:08 Urine Culture Reflexed Cancelled 10/29/20 13:08 Urine Total Volume Cancelled 10/29/20 13:08 Acetaminophen (Acetaminophen 500 Mg Tab) 500 mg PO Q6H PRN PRN Reason: Pain scale 2-4 (Mild) Hydrocodone Bitart/Acetaminophen (Hydrocodone/Apap 10/325 Tab) 1 tab PO Q6H PRN PRN Reason: Pain scale 5-7 (Moderate) Last Admin: 10/31/20 17:01 Dose: 1 tab Documented by: Albuterol Sulfate (Albuterol 2.5 Mg/3 Ml Neb [place]) 2.5 mg NEB [id number] PRN PRN Reason: SHORTNESS OF BREATH Aspirin (Aspirin Ec 81 Mg Tab) 81 mg PO DAILY [facility] Last Admin: 11/01/20 10:05 Dose: 81 mg Documented by: Carvedilol (Carvedilol 12.5 Mg Tab) 12.5 mg PO BID 6AM 6PM [facility] Last Admin: 11/01/20 05:21 Dose: 12.5 mg Documented by: Collagenase (Collagenase 30 Gm Ointment) 1 appl TOP DAILY [facility] Last Admin: 11/01/20 09:00 Dose: 1 appl Documented by: Folic Acid (Folic Acid 1 Mg Tablet) 1 mg PO DAILY [facility] Last Admin: 11/01/20 10:05 Dose: 1 mg Documented by: Gabapentin (Gabapentin 100 Mg Cap) 100 mg PO TID [facility] Last Admin: 11/01/20 10:05 Dose: 100 mg Documented by: Glipizide (Glipizide 5 Mg Tab) 5 mg PO BIDWM [facility] Last Admin: 11/01/20 10:05 Dose: 5 mg Documented by: Guaifenesin (Guaifenesin 100 Mg/5 Ml Ucup) 200 mg PO QID PRN PRN Reason: COUGH Heparin Sodium (Porcine) (Heparin 5000 Unit/Ml 1 Ml Vial) 5,000 unit SQ Q12HR [facility] Last Admin: 11/01/20 10:04 Dose: 5,000 unit Documented by: Hydralazine HCl (Hydralazine Hcl 20 Mg/Ml Vial) 10 mg IV Q6HP PRN PRN Reason: FOR SBP>160 OR DBP>100 [facility] Last Admin: 10/30/20 20:13 Dose: 10 mg Documented by: Hydromorphone HCl (Hydromorphone Hcl 1 Mg/Ml Inj) 1 mg IV Q6HP PRN PRN Reason: Pain scale 5-7 (Moderate) Last Admin: 11/01/20 10:08 Dose: 1 mg Documented by: Vancomycin HCl 1 gm/ Sodium (Chloride) 250 mls @ 150 mls/hr IVPB Q36H [facility]; Protocol Last Admin: 10/31/20 05:27 Dose: 250 mls Documented by: Insulin Human Regular (Insulin -Regular Human 50 Unit/0.5 Ml Ml) 0 unit SQ ACHS [facility]; Protocol Melatonin (Melatonin 5 Mg Tablet) 10 mg PO BEDTIME PRN PRN PRN Reason: INSOMNIA Last Admin: 10/30/20 22:48 Dose: 10 mg Documented by: Meropenem (Meropenem 1000 Mg/Vial) 1,000 mg IV Q12HR [facility]; Protocol Nicotine (Nicotine 21 Mg/Pat) 21 mg TD DAILY [facility] Last Admin: 11/01/20 10:03 Dose: 21 mg Documented by: Ondansetron HCl (Ondansetron 4 Mg/2 Ml Vial) 4 mg IV Q8H PRN PRN Reason: NAUSEA / VOMITING Last Admin: 10/30/20 21:43 Dose: 4 mg Documented by: Sodium Chloride (Flush Normal Saline 10 Ml) 10 ml IV BID [facility] Last Admin: 11/01/20 09:00 Dose: 10 ml Documented by: Assessment And Plan - Plan Antibiotics: Vancomycin start: 10/31 stop:-- Merum start: 11/01 stop: -- Assessment: -left BKA stump ulcer with concern for osteomyelitis -diabetes type 2 -iron-deficiency anemia -CKD stage 4 -chronic tobacco user Plan: -Pending MRI to assess for osteomyelitis. Continue with current IV antibiotics, Zosyn DC on 11/01 and Merum started to decrease nephrotoxic effects. Antibiotic duration will be based off MRI results. Wound care center is taking care ulcer: They are using santyl. Wound care culture groomed with mixed skin simi. -keep sugar under 150 for proper wound management. -continue monitor hemoglobin, recommend transfusion if hemoglobin drops below 7.0. -patient has CKD stage 4 with an estimated creatinine clearance of 26mL/min--antibiotics renally dosed. -medical management per primary team -continue to monitor CBC and BMP -continue monitor signs infection Plan of care discussed with Dr. Payton Thank you for consultation. Physician Review: Patient Assessed, Agree with Above Assessment and Plan
[2020-11-01] MEDS: HYDROCODONE/APAP 10/325 TAB PO PRN (14:58)
[2020-11-01] MEDS: Meropenem 1 GM/100 ML BAG IV SCH (14:59)
--- NOTE | 2020-11-01 15:01 | RAD REPORT ---
EXAM DESCRIPTION: MRI - Knee Left Wo Cont - 11/01/2020 2:38 pm CLINICAL HISTORY: Knee pain and swelling. Osteomyelitis COMPARISON: October 29, 2020 cat scan TECHNIQUE: Axial, sagittal and coronal magnetic resonance imaging left knee pain FINDINGS: Below the knee amputation. Abnormal signal involves the tibial stump measuring 8 centimeters cranial caudally consistent with os teomyelitis. Soft tissue ulceration is present with edema within the soft tissues. The fibular stump demonstrates normal signal. No soft tissue abscess seen IMPRESSION: Osteomyelitis involving the tibial stump
--- NOTE | 2020-11-01 19:09 | P.PN ---
Date of Service: 11/01/20 Vital Signs Temp Pulse Resp BP Pulse Ox 97.7 F 71 18 161/81 H 97 11/01/20 16:00 11/01/20 17:55 11/01/20 18:25 11/01/20 17:55 11/01/20 18:25 Medications Acetaminophen (Acetaminophen 500 Mg Tab) 500 mg PO Q6H PRN PRN Reason: Pain scale 2-4 (Mild) Hydrocodone Bitart/Acetaminophen (Hydrocodone/Apap 10/325 Tab) 1 tab PO Q6H PRN PRN Reason: Pain scale 5-7 (Moderate) Last Admin: 11/01/20 14:58 Dose: 1 tab Documented by: Albuterol Sulfate (Albuterol 2.5 Mg/3 Ml Neb Lorena) 2.5 mg NEB [id number] PRN PRN Reason: SHORTNESS OF BREATH Aspirin (Aspirin Ec 81 Mg Tab) 81 mg PO DAILY [facility] Last Admin: 11/01/20 10:05 Dose: 81 mg Documented by: Carvedilol (Carvedilol 12.5 Mg Tab) 12.5 mg PO BID 6AM 6PM [facility] Last Admin: 11/01/20 17:55 Dose: 12.5 mg Documented by: Collagenase (Collagenase 30 Gm Ointment) 1 appl TOP DAILY [facility] Last Admin: 11/01/20 09:00 Dose: 1 appl Documented by: Folic Acid (Folic Acid 1 Mg Tablet) 1 mg PO DAILY [facility] Last Admin: 11/01/20 10:05 Dose: 1 mg Documented by: Gabapentin (Gabapentin 100 Mg Cap) 100 mg PO TID [facility] Last Admin: 11/01/20 14:59 Dose: 100 mg Documented by: Glipizide (Glipizide 5 Mg Tab) 5 mg PO BIDWM [facility] Last Admin: 11/01/20 17:55 Dose: 5 mg Documented by: Guaifenesin (Guaifenesin 100 Mg/5 Ml Ucup) 200 mg PO QID PRN PRN Reason: COUGH Heparin Sodium (Porcine) (Heparin 5000 Unit/Ml 1 Ml Vial) 5,000 unit SQ Q12HR [facility] Last Admin: 11/01/20 10:04 Dose: 5,000 unit Documented by: Hydralazine HCl (Hydralazine Hcl 20 Mg/Ml Vial) 10 mg IV Q6HP PRN PRN Reason: FOR SBP>160 OR DBP>100 MMHG Last Admin: 10/30/20 20:13 Dose: 10 mg Documented by: Hydromorphone HCl (Hydromorphone Hcl 1 Mg/Ml Inj) 1 mg IV Q6HP PRN PRN Reason: Pain scale 5-7 (Moderate) Last Admin: 11/01/20 17:55 Dose: 1 mg Documented by: Meropenem (Merrem 1 Gm/100 Ml Ns Ivpb) 1 gm in 100 mls @ 100 mls/hr IV Q12H [facility] Last Admin: 11/01/20 14:59 Dose: 100 mls Documented by: Vancomycin HCl 1 gm/ Sodium (Chloride) 250 mls @ 150 mls/hr IVPB Q48H [facility]; Protocol Last Admin: 11/01/20 17:55 Dose: 250 mls Documented by: Insulin Human Regular (Insulin -Regular Human 50 Unit/0.5 Ml Ml) 0 unit SQ ACHS [facility]; Protocol Last Admin: 11/01/20 16:30 Dose: Not Given Documented by: Melatonin (Melatonin 5 Mg Tablet) 10 mg PO BEDTIME PRN PRN PRN Reason: INSOMNIA Last Admin: 10/30/20 22:48 Dose: 10 mg Documented by: Nicotine (Nicotine 21 Mg/Pat) 21 mg TD DAILY [facility] Last Admin: 11/01/20 10:03 Dose: 21 mg Documented by: Ondansetron HCl (Ondansetron 4 Mg/2 Ml Vial) 4 mg IV Q8H PRN PRN Reason: NAUSEA / VOMITING Last Admin: 10/30/20 21:43 Dose: 4 mg Documented by: Sodium Chloride (Flush Normal Saline 10 Ml) 10 ml IV BID [facility] Last Admin: 11/01/20 09:00 Dose: 10 ml Documented by: Microbiology Results 10/29/20 14:01 Wound - Left Knee Gram Stain - Final 10/29/20 14:01 Wound - Left Knee Culture & Sensitivity - Final 10/29/20 13:50 Blood - Blood Aerobic Blood Culture - Preliminary No growth in 24 hours. 10/29/20 13:50 Blood - Blood Anaerobic Blood Culture - Preliminary No growth in 24 hours. 10/29/20 13:34 Blood - Blood Aerobic Blood Culture - Preliminary No growth in 24 hours. 10/29/20 13:34 Blood - Blood Anaerobic Blood Culture - Preliminary No growth in 24 hours. Assessment/ Plan: Nephrology No acute cardiac or pulmonary complaints. No CP or SOB. Reports that he recently stopped his home meds and feels better. +Appetite No acute events overnight. Vitals, medications, blood work and imaging reviewed in the chart. NAD. MMM. Neck supple. CTA. RRR. Soft Abd. No C/C/E. Left BKA with stump wound. No rash. AAO. Normal Speech. EXAM DESCRIPTION: US - Renal Ultrasound-Complete - 10/30/2020 4:45 pm CLINICAL HISTORY: CKD COMPARISON: Abdomen Pelvis W Contrast dated 02/03/2020 FINDINGS: The right kidney measures 9.3 x 4.2 x 5.3 cm. The left kidney measures 9.6 x 5.2 x 4.2 centimeter. Cortical thickness is normal. There is significant increase in cortical echogenicity throughout both kidneys. This is a pattern typical for medical renal disease. No hydronephrosis or suspicious renal mass. No bladder wall thickening or mass. No intraluminal stone or mass. IMPRESSION: No hydronephrosis or suspicious renal mass. Bilateral medical renal disease evident. A/P: Continue the current POC and Medications other than the changes listed. AM Labs PRN. Recommend daily weight. Please see the orders for complete det ails. CALDERON improving CKD III with proteinuria -No NSAIDs Hypocalcemia -Start Vitamin D3 HTN with CKD -Continue Coreg DM II with CKD & Polyneuropathy -RISS Moderate malnutrition -Encourage nutrition Anemia in chronic illness Iron Deficiency 8% -Consider IV iron Left Stump Osteomyeltis -Continue Meropenem -Renal dose Vancomycin
[2020-11-01] MEDS ORDERED: Meropenem 1000 MG/VIAL IV SCH (21:00)
[2020-11-02] MEDS: Meropenem 1 GM/100 ML BAG IV SCH ×2 (02:51→16:05)
[2020-11-02] MEDS: HYDROCODONE/APAP 10/325 TAB PO PRN ×4 (03:35→22:53)
[2020-11-02 04:33] LABS: Absolute Lymphocytes (CBC) 0.9 K/uL (0.7-4.9); Basophils % 0.7 % (0-1.3); Lymphocytes % 17.5 % (15.3-44.8); MPV 9.3 fL (7.6-11.3); RBC Red Blood Cell Count 2.51 M/uL (4.33-5.43)
[2020-11-02 04:38] LABS: Hematocrit 20.6 % (39.6-49.0)
[2020-11-02 04:44] LABS: Magnesium 2.4 mg/dL (1.8-2.4); Potassium 4.9 mmol/L (3.5-5.1)
[2020-11-02] MEDS ORDERED: VANCOMYCIN 1 GM in NA CHLORIDE 0.9% 250 ML IVPB SCH (05:00)
[2020-11-02] MEDS: carvediloL 12.5 MG TAB PO SCH ×2 (05:43→18:32)
[2020-11-02] MEDS: INSULIN -REGULAR HUMAN 50 UNIT/0.5 ML ML SQ SCH ×4 (07:30→21:00)
--- NOTE | 2020-11-02 10:01 | P.PN ---
Subjective Date of Service: 11/02/20 Chief Complaint: Left leg stump ulcer Patient seen examined at bedside-states he is having some nausea this morning but denies vomiting. He states that he usually has nausea every morning? And has severe anemia with hemoglobin of 6.6, patient currently getting IV iron and received 1 unit of packed red blood cells today. He denies any acute pain. Review of Systems 10-point ROS is otherwise unremarkable Physical Examination - Vital Signs Temperature: 98.1 F Blood Pressure: 182/82 Pulse: 76 Respirations: 18 Pulse Ox (%): 98 - Studies Temp Pulse Resp BP Pulse Ox 98.1 F 76 18 182/82 H 98 11/02/20 08:00 11/02/20 08:00 11/02/20 08:00 11/02/20 08:00 11/02/20 08:00 Acetaminophen (Acetaminophen 500 Mg Tab) 500 mg PO Q6H PRN PRN Reason: Pain scale 2-4 (Mild) Hydrocodone Bitart/Acetaminophen (Hydrocodone/Apap 10/325 Tab) 1 tab PO Q6H PRN PRN Reason: Pain scale 5-7 (Moderate) Last Admin: 11/02/20 03:35 Dose: 1 tab Documented by: Albuterol Sulfate (Albuterol 2.5 Mg/3 Ml Neb Lorena) 2.5 mg NEB [id number] PRN PRN Reason: SHORTNESS OF BREATH Aspirin (Aspirin Ec 81 Mg Tab) 81 mg PO DAILY [facility] Last Admin: 11/01/20 10:05 Dose: 81 mg Documented by: Calcitriol (Calcitrol 0.25 Mcg Cap) 0.5 mcg PO DAILY [facility] Carvedilol (Carvedilol 12.5 Mg Tab) 12.5 mg PO BID 6AM 6PM [facility] Last Admin: 11/02/20 05:43 Dose: 12.5 mg Documented by: Cholecalciferol (Vitamin D 5,000 Unit Cap) 5,000 unit PO DAILY [facility] Collagenase (Collagenase 30 Gm Ointment) 1 appl TOP DAILY [facility] Last Admin: 11/01/20 09:00 Dose: 1 appl Documented by: Folic Acid (Folic Acid 1 Mg Tablet) 1 mg PO DAILY [facility] Last Admin: 11/01/20 10:05 Dose: 1 mg Documented by: Gabapentin (Gabapentin 100 Mg Cap) 100 mg PO TID [facility] Last Admin: 11/01/20 20:29 Dose: 100 mg Documented by: Glipizide (Glipizide 5 Mg Tab) 5 mg PO BIDWM [facility] Last Admin: 11/01/20 17:55 Dose: 5 mg Documented by: Guaifenesin (Guaifenesin 100 Mg/5 Ml Ucup) 200 mg PO QID PRN PRN Reason: COUGH Heparin Sodium (Porcine) (Heparin 5000 Unit/Ml 1 Ml Vial) 5,000 unit SQ Q12HR [facility] Last Admin: 11/01/20 20:30 Dose: 5,000 unit Documented by: Hydralazine HCl (Hydralazine Hcl 20 Mg/Ml Vial) 10 mg IV Q6HP PRN PRN Reason: FOR SBP>160 OR DBP>100 [facility] Last Admin: 10/30/20 20:13 Dose: 10 mg Documented by: Hydromorphone HCl (Hydromorphone Hcl 1 Mg/Ml Inj) 1 mg IV Q6HP PRN PRN Reason: Pain scale 5-7 (Moderate) Last Admin: 11/01/20 23:03 Dose: 1 mg Documented by: Meropenem (Merrem 1 Gm/100 Ml Ns Ivpb) 1 gm in 100 mls @ 100 mls/hr IV Q12H [facility] Last Admin: 11/02/20 02:51 Dose: 100 mls Documented by: Vancomycin HCl 1 gm/ Sodium (Chloride) 250 mls @ 150 mls/hr IVPB Q48H [facility]; Protocol Last Admin: 11/01/20 17:55 Dose: 250 mls Documented by: Ferric Sodium Gluconate Complex 125 mg/ Sodium Chloride 110 mls @ 100 mls/hr IV DAILY [facility] Stop: 11/06/20 10:05 Insulin Human Regular (Insulin -Regular Human 50 Unit/0.5 Ml Ml) 0 unit SQ ACHS [facility]; Protocol Last Admin: 11/01/20 21:00 Dose: Not Given Documented by: Melatonin (Melatonin 5 Mg Tablet) 10 mg PO BEDTIME PRN PRN PRN Reason: INSOMNIA Last Admin: 10/30/20 22:48 Dose: 10 mg Documented by: Nicotine (Nicotine 21 Mg/Pat) 21 mg TD DAILY [facility] Last Admin: 11/01/20 10:03 Dose: 21 mg Documented by: Ondansetron HCl (Ondansetron 4 Mg/2 Ml Vial) 4 mg IV Q8H PRN PRN Reason: NAUSEA / VOMITING Last Admin: 10/30/20 21:43 Dose: 4 mg Documented by: Sodium Chloride (Flush Normal Saline 10 Ml) 10 ml IV BID [facility] Last Admin: 11/01/20 23:29 Dose: 10 ml Documented by: Laboratory Last Values WBC 6.20 K/uL (4.3-10.9) 10/29/20 13:34 RBC 2.66 M/uL (4.33-5.43) L 10/29/20 13:34 Hgb 7.1 g/dL (13.6-17.9) L* 10/29/20 13:34 Hct 21.4 % (39.6-49.0) L 10/29/20 13:34 MCV 80.5 fL (80-100) D 10/29/20 13:34 MCH 26.6 pg (27.0-35.0) L 10/29/20 13:34 MCHC 33.0 g/dL (32.0-36.0) 10/29/20 13:34 RDW 14.3 % (12.1-15.2) 10/29/20 13:34 Plt Count 163 K/uL (152-406) 10/29/20 13:34 MPV 8.7 fL (7.6-11.3) 10/29/20 13:34 Neutrophils % 75.4 % (41.7-73.7) H 10/29/20 13:34 Lymphocytes % 16.1 % (15.3-44.8) 10/29/20 13:34 Monocytes % 6.8 % (3.3-12.3) 10/29/20 13:34 Eosinophils % 1.2 % (0-4.4) 10/29/20 13:34 Basophils % 0.5 % (0-1.3) 10/29/20 13:34 Absolute Neutrophils 4.7 K/uL (1.8-8.0) 10/29/20 13:34 Absolute Lymphocytes 1.0 K/uL (0.7-4.9) 10/29/20 13:34 Absolute Monocytes 0.4 K/uL (0.1-1.3) 10/29/20 13:34 Absolute Eosinophils 0.1 K/uL (0-0.5) 10/29/20 13:34 Absolute Basophils 0.0 K/uL (0-0.5) 10/29/20 13:34 PT 10.7 SECONDS (9.5-12.5) 10/29/20 13:34 INR 0.93 10/29/20 13:34 APTT 24.2 SECONDS (24.3-36.9) L 10/29/20 13:34 Sodium 141 mmol/L (136-145) 10/29/20 13:34 Potassium 3.5 mmol/L (3.5-5.1) 10/29/20 13:34 Chloride 108 mmol/L (98-107) H 10/29/20 13:34 Carbon Dioxide 24 mmol/L (21-32) 10/29/20 13:34 BUN 40 mg/dL (7-18) H 10/29/20 13:34 Creatinine 1.92 mg/dL (0.55-1.3) H 10/29/20 13:34 Estimated GFR 35 mL/min (=/>90) L 10/29/20 13:34 Glucose 104 mg/dL (74-106) 10/29/20 13:34 Calcium 8.3 mg/dL (8.5-10.1) L 10/29/20 13:34 Total Bilirubin 0.3 mg/dL (0.2-1.0) 10/29/20 13:34 Direct Bilirubin 0.1 mg/dL (0-0.2) 10/29/20 13:34 AST 25 U/L (15-37) 10/29/20 13:34 ALT 16 U/L (12-78) 10/29/20 13:34 Alkaline Phosphatase 151 U/L (45-117) H 10/29/20 13:34 Serum Total Protein 7.5 g/dL (6.4-8.2) 10/29/20 13:34 Albumin 2.5 g/dL (3.4-5.0) L 10/29/20 13:34 Globulin 5.0 g/dL (2.3-3.5) H 10/29/20 13:34 Albumin/Globulin Ratio 0.5 (1.1-1.8) L 10/29/20 13:34 Amylase 140 U/L (25-115) H 10/29/20 13:34 Lipase 553 U/L (73-393) H 10/29/20 13:34 Procalcitonin 0.05 ng/mL (<0.050) 10/29/20 13:34 Urine RBC Cancelled 10/29/20 13:08 Urine WBC Cancelled 10/29/20 13:08 Ur Squamous Epith Cells Cancelled 10/29/20 13:08 Ur Urothelial Cells Cancelled 10/29/20 13:08 Calcium Oxalate Crystal Cancelled 10/29/20 13:08 Uric Acid Crystals Cancelled 10/29/20 13:08 Triple Phos Crystals Cancelled 10/29/20 13:08 Other Crystals Cancelled 10/29/20 13:08 Amorphous Sediment Cancelled 10/29/20 13:08 Glitter Cells Cancelled 10/29/20 13:08 Urine Bacteria Cancelled 10/29/20 13:08 Hyaline Casts Cancelled 10/29/20 13:08 Fine Granular Casts Cancelled 10/29/20 13:08 Coarse Granular Casts Cancelled 10/29/20 13:08 Waxy Casts Cancelled 10/29/20 13:08 RBC Casts Cancelled 10/29/20 13:08 WBC Casts Cancelled 10/29/20 13:08 Urine Mucus Cancelled 10/29/20 13:08 Urine Other Cancelled 10/29/20 13:08 Urine Trichomonas Cancelled 10/29/20 13:08 Urine Yeast Cancelled 10/29/20 13:08 Ur Yeast w Hyphae Cancelled 10/29/20 13:08 Urine Yeast (Budding) Cancelled 10/29/20 13:08 Urine Sperm Cancelled 10/29/20 13:08 Urine Culture Reflexed Cancelled 10/29/20 13:08 Urine Total Volume Cancelled 10/29/20 13:08 Assessment And Plan - Plan General: Alert, In no apparent distress HEENT: Atraumatic, Normocephalic Neck: Supple, 2+ carotid pulse no bruit Respiratory: Clear to auscultation bilaterally, Normal air movement Cardiovascular: No edema, Normal pulses Capillary refill: <2 Seconds Gastrointestinal: Normal bowel sounds, Soft and benign Musculoskeletal: No clubbing, No swelling Integumentary: Other (Left BKA, small ulceration on left BKA.) Antibiotics: Vancomycin start: 10/31 stop:-- Merum start: 11/01 stop: -- Assessment: -left BKA stump ulcer with osteomyelitis -diabetes type 2 -iron-deficiency anemia -CKD stage 4 -chronic tobacco user Plan: -MRI confirmed osteomyelitis of the left BKA stump. Continue with current IV antibiotics, Zosyn DC on 11/01 and Merum started to decrease nephrotoxic effects. Patient will need an erratic duration of 6 weeks. Vanco trough goal of 15-20. Vanco trough on 11/11 was 30.9, its government promised extremities this is a group trough level in the are going to evaluate further and see if the patient needs to skip a dose. Wound care center is taking care ulcer: They are using santyl. Wound care culture groomed with mixed skin simi. -keep sugar under 150 for proper wound management. -continue monitor hemoglobin, recommend transfusion if hemoglobin drops below 7.0. -patient has CKD stage 4 with an estimated creatinine clearance of 26mL/min--antibiotics renally dosed. -medical management per primary team -continue to monitor CBC and BMP -continue monitor signs infection Plan of care discussed with Dr. Payton Thank you for consultation. Physician Review: Patient Assessed, Agree with Above Assessment and Plan
[2020-11-02] MEDS: SOD FERRIC GLUC COMPLX/SUCROSE 125 MG in NA CHLORIDE 0.9% 100 ML IV SCH (10:12)
[2020-11-02] MEDS: CALCITROL 0.25 MCG CAP PO SCH (10:16)
[2020-11-02] MEDS: ASPIRIN EC 81 MG TAB PO SCH (10:16)
[2020-11-02] MEDS: GABAPENTIN 100 MG CAP PO SCH ×3 (10:16→20:32)
[2020-11-02] MEDS: glipiZIDE 5 MG TAB PO SCH ×2 (10:16→16:20)
[2020-11-02] MEDS: NICOTINE 21 MG/PAT TD SCH (10:16)
[2020-11-02] MEDS: FOLIC ACID 1 MG TABLET PO SCH (10:16)
[2020-11-02] MEDS: VITAMIN D 5,000 UNIT CAP PO SCH (10:16)
[2020-11-02] MEDS: HEPARIN 5000 UNIT/ML 1 ML VIAL SQ SCH ×2 (10:18→20:32)
[2020-11-02] MEDS: COLLAGENASE 30 GM OINTMENT TOP SCH (10:19)
[2020-11-02] MEDS ORDERED: NA CHLORIDE 0.9% 250 ML ONE (12:15)
--- NOTE | 2020-11-02 16:10 | P.PN ---
Subjective Date of Service: 11/02/20 Chief Complaint: Left leg stump ulcer Patient has no new complain. MRI of the left amputation start showing osteomyelitis of tibia. Physical Examination - Vital Signs Temperature: 98.5 F Blood Pressure: 150/79 Pulse: 81 Respirations: 17 Pulse Ox (%): 95 - Physical Exam General: Alert, In no apparent distress Neck: JVD not distended Respiratory: Clear to auscultation bilaterally, Normal air movement Cardiovascular: No edema, Regular rate/rhythm, Normal S1 S2 Gastrointestinal: Soft and benign, Non-distended, No tenderness Musculoskeletal: No swelling, Other (Left BKA) Integumentary: No rashes, No erythema Neurological: Other (No focal motor deficit.) Assessment And Plan Physician Review: Patient Assessed, Agree with Above Assessment and Plan Physician Review Additional Text: Physical Exam General: Alert, NAD Respiratory: Clear to auscultation bilaterally, Normal air movement Cardiovascular: No edema, Normal pulses, Regular rate/rhythm, Normal S1 S2 Gastrointestinal: Soft and benign, Non-distended Integumentary: ~round ~4cm diameter ulcer at medial base of L BKA stump, with tenderness, no active drainage Ext: 2+ DP on right Neurological: Normal speech, Normal strength at 5/5 x4 extr. RLE: parasthesia / decreased sensation of RLE from ankle down Problem list Left BKA stump ulcer, with concern for osteomyelitis Diabetes mellitus, [id number] CKD 4 HTN Chronic tobacco use Chronic anemia, iron deficiency ID is following. Patient is currently on IV vancomycin. Renally dose Vanco. General surgery consulted for wound / possible abscess - recommend no surgical intervention at this time, MRI of the knee suggest osteomyelitis f/u blood culture - no growth Patient will need 6 weeks of IV antibiotics. Choice of antibiotics per infectious disease. nephrology consulted given patient's CKD, Dr. Syed is following. Hemoglobin dropped to 6.6 today. Patient getting IV iron infusion. 1 unit PRBC transfusion ordered. Continue current antihypertensives.
[2020-11-02] MEDS: HYDRALAZINE HCL 20 MG/ML VIAL IV PRN (16:20)
[2020-11-02] MEDS ORDERED: EPOETIN ALFA-EPBX 10,000 UNIT/ML VIAL SQ ONE (18:57)
--- NOTE | 2020-11-02 18:58 | RAD REPORT ---
EXAM DESCRIPTION: RAD - Chest Single View - 11/02/2020 6:47 pm CLINICAL HISTORY: PICC line placement COMPARISON: Chest Single View dated 09/30/2020; Chest Single View dated 02/03/2020; Chest Single View dated 01/28/2020; Chest Single View dated 01/25/2020 FINDINGS: Portable chest was obtained following placement of a right upper extremity PICC line. The catheter tip projects over the SVC.
--- NOTE | 2020-11-02 19:04 | P.PN ---
Date of Service: 11/02/20 Vital Signs Temp Pulse Resp BP Pulse Ox 98.5 F 81 17 150/79 H 97 11/02/20 16:10 11/02/20 18:32 11/02/20 17:19 11/02/20 18:32 11/02/20 17:19 Medications Acetaminophen (Acetaminophen 500 Mg Tab) 500 mg PO Q6H PRN PRN Reason: Pain scale 2-4 (Mild) Hydrocodone Bitart/Acetaminophen (Hydrocodone/Apap 10/325 Tab) 1 tab PO Q6H PRN PRN Reason: Pain scale 5-7 (Moderate) Last Admin: 11/02/20 16:19 Dose: 1 tab Documented by: Albuterol Sulfate (Albuterol 2.5 Mg/3 Ml Neb Lorena) 2.5 mg NEB [id number] PRN PRN Reason: SHORTNESS OF BREATH Aspirin (Aspirin Ec 81 Mg Tab) 81 mg PO DAILY [facility] Last Admin: 11/02/20 10:16 Dose: 81 mg Documented by: Calcitriol (Calcitrol 0.25 Mcg Cap) 0.5 mcg PO DAILY [facility] Last Admin: 11/02/20 10:16 Dose: 0.5 mcg Documented by: Carvedilol (Carvedilol 12.5 Mg Tab) 12.5 mg PO BID 6AM 6PM [facility] Last Admin: 11/02/20 18:32 Dose: 12.5 mg Documented by: Cholecalciferol (Vitamin D 5,000 Unit Cap) 5,000 unit PO DAILY [facility] Last Admin: 11/02/20 10:16 Dose: 5,000 unit Documented by: Collagenase (Collagenase 30 Gm Ointment) 1 appl TOP DAILY [facility] Last Admin: 11/02/20 10:19 Dose: 1 appl Documented by: Folic Acid (Folic Acid 1 Mg Tablet) 1 mg PO DAILY [facility] Last Admin: 11/02/20 10:16 Dose: 1 mg Documented by: Gabapentin (Gabapentin 100 Mg Cap) 100 mg PO TID [facility] Last Admin: 11/02/20 13:00 Dose: 100 mg Documented by: Glipizide (Glipizide 5 Mg Tab) 5 mg PO BIDWM [facility] Last Admin: 11/02/20 16:20 Dose: 5 mg Documented by: Guaifenesin (Guaifenesin 100 Mg/5 Ml Ucup) 200 mg PO QID PRN PRN Reason: COUGH Heparin Sodium (Porcine) (Heparin 5000 Unit/Ml 1 Ml Vial) 5,000 unit SQ Q12HR [facility] Last Admin: 11/02/20 10:18 Dose: 5,000 unit Documented by: Hydralazine HCl (Hydralazine Hcl 20 Mg/Ml Vial) 10 mg IV Q6HP PRN PRN Reason: FOR SBP>160 OR DBP>100 MMHG Last Admin: 10/30/20 20:13 Dose: 10 mg Documented by: Hydromorphone HCl (Hydromorphone Hcl 1 Mg/Ml Inj) 1 mg IV Q6HP PRN PRN Reason: Pain scale 5-7 (Moderate) Last Admin: 11/01/20 23:03 Dose: 1 mg Documented by: Meropenem (Merrem 1 Gm/100 Ml Ns Ivpb) 1 gm in 100 mls @ 100 mls/hr IV Q12H [facility] Last Admin: 11/02/20 16:05 Dose: 100 mls Documented by: Ferric Sodium Gluconate Complex 125 mg/ Sodium Chloride 110 mls @ 100 mls/hr IV DAILY [facility] Stop: 11/06/20 10:05 Last Admin: 11/02/20 10:12 Dose: 110 mls Documented by: Vancomycin HCl 1 gm/ Sodium (Chloride) 250 mls @ 150 mls/hr IVPB Q48H [facility]; Protocol Insulin Human Regular (Insulin -Regular Human 50 Unit/0.5 Ml Ml) 0 unit SQ ACHS [facility]; Protocol Last Admin: 11/02/20 16:05 Dose: Not Given Documented by: Melatonin (Melatonin 5 Mg Tablet) 10 mg PO BEDTIME PRN PRN PRN Reason: INSOMNIA Last Admin: 10/30/20 22:48 Dose: 10 mg Documented by: Nicotine (Nicotine 21 Mg/Pat) 21 mg TD DAILY [facility] Last Admin: 11/02/20 10:16 Dose: 21 mg Documented by: Ondansetron HCl (Ondansetron 4 Mg/2 Ml Vial) 4 mg IV Q8H PRN PRN Reason: NAUSEA / VOMITING Last Admin: 10/30/20 21:43 Dose: 4 mg Documented by: Sodium Chloride (Flush Normal Saline 10 Ml) 10 ml IV BID [facility] Last Admin: 11/02/20 09:00 Dose: 10 ml Documented by: Microbiology Results 10/29/20 14:01 Wound - Left Knee Gram Stain - Final 10/29/20 14:01 Wound - Left Knee Culture & Sensitivity - Final 10/29/20 13:50 Blood - Blood Aerobic Blood Culture - Preliminary No growth in 24 hours. 10/29/20 13:50 Blood - Blood Anaerobic Blood Culture - Preliminary No growth in 24 hours. 10/29/20 13:34 Blood - Blood Aerobic Blood Culture - Preliminary No growth in 24 hours. 10/29/20 13:34 Blood - Blood Anaerobic Blood Culture - Preliminary No growth in 24 hours. Assessment/ Plan: Nephrology No acute cardiac or pulmonary complaints. No CP or SOB. No acute events overnight. Vitals, medications, blood work and imaging reviewed in the chart. NAD. MMM. Neck supple. CTA. RRR. Soft Abd. No C/C/E. Left BKA with stump wound. No rash. AAO. Normal Speech. EXAM DESCRIPTION: US - Renal Ultrasound-Complete - 10/30/2020 4:45 pm CLINICAL HISTORY: CKD COMPARISON: Abdomen Pelvis W Contrast dated 02/03/2020 FINDINGS: The right kidney measures 9.3 x 4.2 x 5.3 cm. The left kidney measures 9.6 x 5.2 x 4.2 centimeter. Cortical thickness is normal. There is significant increase in cortical echogenicity throughout both kidneys. This is a pattern typical for medical renal disease. No hydronephrosis or suspicious renal mass. No bladder wall thickening or mass. No intraluminal stone or mass. IMPRESSION: No hydronephrosis or suspicious renal mass. Bilateral medical renal disease evident. A/P: Continue the current POC and Medications other than the changes listed. AM Labs PRN. Recommend daily weight. Please see the orders for complete details. CALDERON CKD III/ IV with proteinuria -No NSAIDs -Check urine studies in the morning. Hypocalcemia -Continue Vitamin D3 HTN with CKD -Increase Coreg 25mg BID DM II with CKD & Polyneuropathy -RISS Moderate malnutrition -Encourage nutrition Anemia in chronic illness Iron Deficiency 8% -Start IV iron series -Agree with unit of PRBC -Retacrit X1 dose Left Stump Osteomyeltis -Continue Meropenem -Renal dose Vancomycin -Plan for PICC line today Case reviewed with Dr. Wilkinson
[2020-11-02 19:34] LABS: Hematocrit 24.6 % (39.6-49.0)
[2020-11-03] MEDS: HYDROMORPHONE HCL 1 MG/ML INJ IV PRN ×3 (00:22→20:19)
[2020-11-03] MEDS: HYDRALAZINE HCL 20 MG/ML VIAL IV PRN (00:57)
[2020-11-03] MEDS: Meropenem 1 GM/100 ML BAG IV SCH ×2 (03:00→14:35)
[2020-11-03] MEDS: carvediloL 12.5 MG TAB PO SCH ×2 (06:10→17:45)
[2020-11-03 06:20] LABS: Albumin 2.1 g/dL (3.4-5.0); Magnesium 2.2 mg/dL (1.8-2.4); Phosphorus 3.6 mg/dL (2.5-4.9); Potassium 4.2 mmol/L (3.5-5.1); Uric Acid 6.4 mg/dL (3.5-7.2)
[2020-11-03] MEDS: INSULIN -REGULAR HUMAN 50 UNIT/0.5 ML ML SQ SCH ×4 (07:30→20:21)
[2020-11-03] MEDS: GABAPENTIN 100 MG CAP PO SCH ×3 (09:48→20:20)
[2020-11-03] MEDS: VITAMIN D 5,000 UNIT CAP PO SCH (09:48)
[2020-11-03] MEDS: FOLIC ACID 1 MG TABLET PO SCH (09:48)
[2020-11-03] MEDS: CALCITROL 0.25 MCG CAP PO SCH (09:48)
[2020-11-03] MEDS: ASPIRIN EC 81 MG TAB PO SCH (09:48)
[2020-11-03] MEDS: COLLAGENASE 30 GM OINTMENT TOP SCH (09:49)
[2020-11-03] MEDS: HEPARIN 5000 UNIT/ML 1 ML VIAL SQ SCH ×2 (09:49→20:20)
[2020-11-03] MEDS: glipiZIDE 5 MG TAB PO SCH ×2 (09:49→17:45)
[2020-11-03] MEDS: NICOTINE 21 MG/PAT TD SCH (09:49)
[2020-11-03] MEDS ORDERED: FENTANYL CITR 100 MCG/2 ML IV ONE (10:40)
[2020-11-03] MEDS: SOD FERRIC GLUC COMPLX/SUCROSE 125 MG in NA CHLORIDE 0.9% 100 ML IV SCH (10:50)
--- NOTE | 2020-11-03 10:55 | P.DS ---
Admission Date: 10/29/20 Discharge Date: 11/04/20 Disposition: ME HOME/HOME HEALTH CARE Discharge Condition: FAIR Reason for Admission: Left leg stump ulcer Consultations: Infectious disease General surgery-Dr. López. - Problems (1) Osteomyelitis of tibia Status: Acute (2) Cellulitis of left foot Onset Date: 04/26/17 Status: Resolved (3) BKA stump complication Status: Resolved (4) Chronic anemia Status: Acute (5) Non-healing surgical wound Status: Ruled-out (6) Diabetes mellitus Onset Date: 08/08/16 Status: Chronic Qualifiers: Diabetes mellitus type: type 2 Diabetes mellitus residential insulin use: unspecified social service assistant insulin use status Diabetes mellitus complication status: with skin complications Diabetes mellitus complication detail: with other skin complication Qualified Code(s): E11.628 - Type 2 diabetes mellitus with other skin complications Brief History of Present Illness: 69-year-old man with past medical history of hypertension, diabetes mellitus on metformin, history of PVD status post left BKA due to gangrene 3 years ago, chronic tobacco use, former alcoholic presented to the hospital because of increasing pain and new ulcer over the left BKA stump. Patient uses prosthesis. X-ray of the knee showed possible osteomyelitis. He has been admitted for further workup. Hospital Course: Patient admitted to the medical floor and started on IV Zosyn and vancomycin. MRI of the left knee confirmed osteomyelitis of the Tibia. Patient seen by infectious disease. 6 weeks of IV antibiotics recommended. PICC line played for outpatient IV antibiotics. Wound culture yielded mixed growth. Patient to be discharged with 6 weeks of IV vancomycin and oral Levaquin. He will need vancomycin trough checked twice a week and BMP at least once a week. IV antibiotics to be given by home health. He was seen by a general surgery who recommended antibiotics and no surgical intervention at this time. Vital Signs/Physical Exam: Temp Pulse Resp BP Pulse Ox 97.7 F 69 20 171/89 H 94 11/03/20 08:00 11/03/20 08:00 11/03/20 10:27 11/03/20 08:00 11/03/20 10:27 General: Alert, In no apparent distress Neck: Supple, JVD not distended Respiratory: Clear to auscultation bilaterally, Normal air movement Cardiovascular: No edema, Regular rate/rhythm, Normal S1 S2 Gastrointestinal: Normal bowel sounds, Soft and benign, Non-distended, No tenderness Musculoskeletal: Other (Left BKA) Integumentary: Other (Ulcer at the tip of the left BKA amputation stump.) Neurological: Other (No focal motor deficit.) Laboratory Data at Discharge: WBC 5.20 K/uL (4.3-10.9) D 11/02/20 03:43 Hgb 8.0 g/dL (13.6-17.9) L 11/02/20 19:15 Hct 24.6 % (39.6-49.0) L D 11/02/20 19:15 Plt Count 136 K/uL (152-406) L 11/02/20 03:43 PT 10.7 SECONDS (9.5-12.5) 10/29/20 13:34 INR 0.93 10/29/20 13:34 APTT 24.2 SECONDS (24.3-36.9) L 10/29/20 13:34 Sodium 141 mmol/L (136-145) 11/03/20 04:58 Potassium 4.2 mmol/L (3.5-5.1) 11/03/20 04:58 BUN 49 mg/dL (7-18) H 11/03/20 04:58 Creatinine 2.51 mg/dL (0.55-1.3) H 11/03/20 04:58 Glucose 82 mg/dL (74-106) 11/03/20 04:58 Uric Acid 6.4 mg/dL (3.5-7.2) 11/03/20 04:58 Phosphorus 3.6 mg/dL (2.5-4.9) 11/03/20 04:58 Magnesium 2.2 mg/dL (1.8-2.4) 11/03/20 04:58 Total Bilirubin 0.4 mg/dL (0.2-1.0) 10/30/20 06:07 AST 21 U/L (15-37) 10/30/20 06:07 ALT 14 U/L (12-78) 10/30/20 06:07 Alkaline Phosphatase 109 U/L (45-117) 10/30/20 06:07 Troponin I < 0.02 ng/mL (0.0-0.045) 10/29/20 19:45 Amylase 140 U/L (25-115) H 10/29/20 13:34 Lipase Cancelled 10/30/20 Unknown Home Medications: Calcitrol [Rocaltrol*] 0.5 mcg PO DAILY #30 cap 11/03/20 Cholecalciferol (Vitamin D3) [Vitamin D 5,000 IU Cap*] 5,000 unit PO DAILY #30 cap 11/03/20 Collagenase [Santyl Ointment*] 1 appl TOP DAILY #1 tube 11/03/20 Gabapentin [Neurontin*] 100 mg PO TID #90 cap 11/03/20 Lactobacillus Acidophilus [Acidophilus] 1 each PO TID #90 capsule 11/03/20 Melatonin 10 mg PO BEDTIME PRN PRN #30 tablet 11/03/20 carvediloL [Coreg*] 25 mg PO BID 6AM 6PM #60 tab 11/03/20 glipiZIDE [Glucotrol*] 2.5 mg PO BID #60 tab 11/03/20 Hydralazine [Apresoline*] 25 mg PO BID #60 tab 11/04/20 Vancomycin/0.9 % Sod Chloride [Vanco 1.25 gm/250 ml-0.9% NaCl] 1.25 gm IV Q48H #21 plast..bag 11/04/20 levoFLOXacin [Levaquin*] 500 mg PO Q48H #21 tab 11/04/20 New Medications: Lactobacillus Acidophilus [Acidophilus] 1 each PO TID #90 capsule Hydralazine [Apresoline*] 25 mg PO BID #60 tab carvediloL [Coreg*] 25 mg PO BID 6AM 6PM #60 tab glipiZIDE [Glucotrol*] 2.5 mg PO BID #60 tab levoFLOXacin [Levaquin*] 500 mg PO Q48H #21 tab Melatonin 10 mg PO BEDTIME PRN PRN #30 tablet PRN Reason: Insomnia Gabapentin [Neurontin*] 100 mg PO TID #90 cap Calcitrol [Rocaltrol*] 0.5 mcg PO DAILY #30 cap Collagenase [Santyl Ointment*] 1 appl TOP DAILY #1 tube Vancomycin/0.9 % Sod Chloride [Vanco 1.25 gm/250 ml-0.9% NaCl] 1.25 gm IV Q48H #21 plast..bag Cholecalciferol (Vitamin D3) [Vitamin D 5,000 IU Cap*] 5,000 unit PO DAILY #30 cap Diet: ADA Activity: Ad yoanna Followup: Giovanni Syed DO [ACTIVE - CAN ADMIT] - Finn López MD [ACTIVE - CAN ADMIT] - Alfonzo Mera DO [Primary Care Provider] - 1-2 Weeks Time spent managing pt's care (in minutes): 38
[2020-11-03] MEDS ORDERED: levoFLOXacin 500 MG TAB PO SCH (11:00)
--- NOTE | 2020-11-03 13:05 | PN ---
Date of Progress Note: 11/03/2020 Diagnosis: Left below-knee amputation, ulceration. Subjective: The patient is doing better, feeling better. He wants to go home. Physical Examination: Abdomen: Soft and depressible. Extremities: Stump intact. Same ulceration as before. Imaging: MRI of the knee done on 11/01/2020 shows osteomyelitis involving the distal stump. Plan: Dr. Payton is consulted on the case. They will proceed with the treatment for his osteomyelit is. From the surgical standpoint, no debridement planned at this moment. Whenever he gets discharge d home, he was [facility]. Keep the area off-loaded in the [facility] ntime. CHAKA/MELY Voice ID: [id number] Report ID: [id number]
--- NOTE | 2020-11-03 14:46 | P.PN ---
Subjective Date of Service: 11/03/20 Chief Complaint: Left leg stump ulcer Patient seen examined at bedside-States he is having some right sided arm weakness/numbness after PICC line placement. Improving. Review of Systems 10-point ROS is otherwise unremarkable Physical Examination - Vital Signs Temperature: 97.3 F Blood Pressure: 121/65 Pulse: 64 Respirations: 20 Pulse Ox (%): 97 - Studies Laboratory Last Values WBC 6.20 K/uL (4.3-10.9) 10/29/20 13:34 RBC 2.66 M/uL (4.33-5.43) L 10/29/20 13:34 Hgb 7.1 g/dL (13.6-17.9) L* 10/29/20 13:34 Hct 21.4 % (39.6-49.0) L 10/29/20 13:34 MCV 80.5 fL (80-100) D 10/29/20 13:34 MCH 26.6 pg (27.0-35.0) L 10/29/20 13:34 MCHC 33.0 g/dL (32.0-36.0) 10/29/20 13:34 RDW 14.3 % (12.1-15.2) 10/29/20 13:34 Plt Count 163 K/uL (152-406) 10/29/20 13:34 MPV 8.7 fL (7.6-11.3) 10/29/20 13:34 Neutrophils % 75.4 % (41.7-73.7) H 10/29/20 13:34 Lymphocytes % 16.1 % (15.3-44.8) 10/29/20 13:34 Monocytes % 6.8 % (3.3-12.3) 10/29/20 13:34 Eosinophils % 1.2 % (0-4.4) 10/29/20 13:34 Basophils % 0.5 % (0-1.3) 10/29/20 13:34 Absolute Neutrophils 4.7 K/uL (1.8-8.0) 10/29/20 13:34 Absolute Lymphocytes 1.0 K/uL (0.7-4.9) 10/29/20 13:34 Absolute Monocytes 0.4 K/uL (0.1-1.3) 10/29/20 13:34 Absolute Eosinophils 0.1 K/uL (0-0.5) 10/29/20 13:34 Absolute Basophils 0.0 K/uL (0-0.5) 10/29/20 13:34 PT 10.7 SECONDS (9.5-12.5) 10/29/20 13:34 INR 0.93 10/29/20 13:34 APTT 24.2 SECONDS (24.3-36.9) L 10/29/20 13:34 Sodium 141 mmol/L (136-145) 10/29/20 13:34 Potassium 3.5 mmol/L (3.5-5.1) 10/29/20 13:34 Chloride 108 mmol/L (98-107) H 10/29/20 13:34 Carbon Dioxide 24 mmol/L (21-32) 10/29/20 13:34 BUN 40 mg/dL (7-18) H 10/29/20 13:34 Creatinine 1.92 mg/dL (0.55-1.3) H 10/29/20 13:34 Estimated GFR 35 mL/min (=/>90) L 10/29/20 13:34 Glucose 104 mg/dL (74-106) 10/29/20 13:34 Calcium 8.3 mg/dL (8.5-10.1) L 10/29/20 13:34 Total Bilirubin 0.3 mg/dL (0.2-1.0) 10/29/20 13:34 Direct Bilirubin 0.1 mg/dL (0-0.2) 10/29/20 13:34 AST 25 U/L (15-37) 10/29/20 13:34 ALT 16 U/L (12-78) 10/29/20 13:34 Alkaline Phosphatase 151 U/L (45-117) H 10/29/20 13:34 Serum Total Protein 7.5 g/dL (6.4-8.2) 10/29/20 13:34 Albumin 2.5 g/dL (3.4-5.0) L 10/29/20 13:34 Globulin 5.0 g/dL (2.3-3.5) H 10/29/20 13:34 Albumin/Globulin Ratio 0.5 (1.1-1.8) L 10/29/20 13:34 Amylase 140 U/L (25-115) H 10/29/20 13:34 Lipase 553 U/L (73-393) H 10/29/20 13:34 Procalcitonin 0.05 ng/mL (<0.050) 10/29/20 13:34 Urine RBC Cancelled 10/29/20 13:08 Urine WBC Cancelled 10/29/20 13:08 Ur Squamous Epith Cells Cancelled 10/29/20 13:08 Ur Urothelial Cells Cancelled 10/29/20 13:08 Calcium Oxalate Crystal Cancelled 10/29/20 13:08 Uric Acid Crystals Cancelled 10/29/20 13:08 Triple Phos Crystals Cancelled 10/29/20 13:08 Other Crystals Cancelled 10/29/20 13:08 Amorphous Sediment Cancelled 10/29/20 13:08 Glitter Cells Cancelled 10/29/20 13:08 Urine Bacteria Cancelled 10/29/20 13:08 Hyaline Casts Cancelled 10/29/20 13:08 Fine Granular Casts Cancelled 10/29/20 13:08 Coarse Granular Casts Cancelled 10/29/20 13:08 Waxy Casts Cancelled 10/29/20 13:08 RBC Casts Cancelled 10/29/20 13:08 WBC Casts Cancelled 10/29/20 13:08 Urine Mucus Cancelled 10/29/20 13:08 Urine Other Cancelled 10/29/20 13:08 Urine Trichomonas Cancelled 10/29/20 13:08 Urine Yeast Cancelled 10/29/20 13:08 Ur Yeast w Hyphae Cancelled 10/29/20 13:08 Urine Yeast (Budding) Cancelled 10/29/20 13:08 Urine Sperm Cancelled 10/29/20 13:08 Urine Culture Reflexed Cancelled 10/29/20 13:08 Urine Total Volume Cancelled 10/29/20 13:08 Temp Pulse Resp BP Pulse Ox 97.3 F 64 20 121/65 97 11/03/20 12:00 11/03/20 12:00 11/03/20 12:58 11/03/20 12:00 11/03/20 12:58 Active Medications Acetaminophen (Acetaminophen 500 Mg Tab) 500 mg PO Q6H PRN PRN Reason: Pain scale 2-4 (Mild) Hydrocodone Bitart/Acetaminophen (Hydrocodone/Apap 10/325 Tab) 1 tab PO Q6H PRN PRN Reason: Pain scale 5-7 (Moderate) Last Admin: 11/02/20 22:53 Dose: 1 tab Documented by: Albuterol Sulfate (Albuterol 2.5 Mg/3 Ml Neb Lorena) 2.5 mg NEB [id number] PRN PRN Reason: SHORTNESS OF BREATH Aspirin (Aspirin Ec 81 Mg Tab) 81 mg PO DAILY [facility] Last Admin: 11/03/20 09:48 Dose: 81 mg Documented by: Calcitriol (Calcitrol 0.25 Mcg Cap) 0.5 mcg PO DAILY [facility] Last Admin: 11/03/20 09:48 Dose: 0.5 mcg Documented by: Carvedilol (Carvedilol 12.5 Mg Tab) 25 mg PO BID 6AM 6PM [facility] Last Admin: 11/03/20 06:10 Dose: 25 mg Documented by: Cholecalciferol (Vitamin D 5,000 Unit Cap) 5,000 unit PO DAILY [facility] Last Admin: 11/03/20 09:48 Dose: 5,000 unit Documented by: Collagenase (Collagenase 30 Gm Ointment) 1 appl TOP DAILY [facility] Last Admin: 11/03/20 09:49 Dose: 1 appl Documented by: Folic Acid (Folic Acid 1 Mg Tablet) 1 mg PO DAILY [facility] Last Admin: 11/03/20 09:48 Dose: 1 mg Documented by: Gabapentin (Gabapentin 100 Mg Cap) 100 mg PO TID [facility] Last Admin: 11/03/20 09:48 Dose: 100 mg Documented by: Glipizide (Glipizide 5 Mg Tab) 5 mg PO BIDWM [facility] Last Admin: 11/03/20 09:49 Dose: 5 mg Documented by: Guaifenesin (Guaifenesin 100 Mg/5 Ml Ucup) 200 mg PO QID PRN PRN Reason: COUGH Heparin Sodium (Porcine) (Heparin 5000 Unit/Ml 1 Ml Vial) 5,000 unit SQ Q12HR [facility] Last Admin: 11/03/20 09:49 Dose: 5,000 unit Documented by: Hydralazine HCl (Hydralazine Hcl 20 Mg/Ml Vial) 10 mg IV Q6HP PRN PRN Reason: FOR SBP>160 OR DBP>100 MMHG Last Admin: 11/03/20 00:57 Dose: 10 mg Documented by: Hydromorphone HCl (Hydromorphone Hcl 1 Mg/Ml Inj) 1 mg IV Q6HP PRN PRN Reason: Pain scale 5-7 (Moderate) Last Admin: 11/03/20 09:57 Dose: 1 mg Documented by: Meropenem (Merrem 1 Gm/100 Ml Ns Ivpb) 1 gm in 100 mls @ 100 mls/hr IV Q12H [facility] Last Admin: 11/03/20 03:00 Dose: 100 mls Documented by: Ferric Sodium Gluconate Complex 125 mg/ Sodium Chloride 110 mls @ 100 mls/hr IV DAILY [facility] Stop: 11/06/20 10:05 Last Admin: 11/03/20 10:50 Dose: 110 mls Documented by: Vancomycin HCl 1 gm/ Sodium (Chloride) 250 mls @ 150 mls/hr IVPB Q48H [facility]; Protocol Insulin Human Regular (Insulin -Regular Human 50 Unit/0.5 Ml Ml) 0 unit SQ ACHS [facility]; Protocol Last Admin: 11/03/20 11:30 Dose: Not Given Documented by: Levofloxacin (Levofloxacin 500 Mg Tab) 500 mg PO Q48H [facility]; Protocol Last Admin: 11/03/20 12:27 Dose: 500 mg Documented by: Melatonin (Melatonin 5 Mg Tablet) 10 mg PO BEDTIME PRN PRN PRN Reason: INSOMNIA Last Admin: 10/30/20 22:48 Dose: 10 mg Documented by: Nicotine (Nicotine 21 Mg/Pat) 21 mg TD DAILY [facility] Last Admin: 11/03/20 09:49 Dose: 21 mg Documented by: Ondansetron HCl (Ondansetron 4 Mg/2 Ml Vial) 4 mg IV Q8H PRN PRN Reason: NAUSEA / VOMITING Last Admin: 10/30/20 21:43 Dose: 4 mg Documented by: Sodium Chloride (Flush Normal Saline 10 Ml) 10 ml IV BID [facility] Last Admin: 11/03/20 09:49 Dose: 10 ml Documented by: Microbiology Data (last 24 hrs): 10/29/20 13:50 Blood - Blood Aerobic Blood Culture - Final No growth in 5 days. 10/29/20 13:50 Blood - Blood Anaerobic Blood Culture - Final No growth in 5 days. 10/29/20 13:34 Blood - Blood Aerobic Blood Culture - Final No growth in 5 days. 10/29/20 13:34 Blood - Blood Anaerobic Blood Culture - Final No growth in 5 days. Assessment And Plan - Plan General: Alert, In no apparent distress HEENT: Atraumatic, Normocephalic Neck: Supple, 2+ carotid pulse no bruit Respiratory: Clear to auscultation bilaterally, Normal air movement Cardiovascular: No edema, Normal pulses Capillary refill: <2 Seconds Gastrointestinal: Normal bowel sounds, Soft and benign Musculoskeletal: No clubbing, No swelling Integumentary: Other (Left BKA, small ulceration on left BKA.) Antibiotics: Vancomycin start: 10/31 stop: 12/12 Merum start: 11/01 stop: 12/12 Assessment: -left BKA stump ulcer with osteomyelitis -diabetes type 2 -iron-deficiency anemia -CKD stage 4 -chronic tobacco user Plan: -MRI confirmed osteomyelitis of the left BKA stump. Continue with current IV antibiotics, Zosyn DC on 11/01 and Merum started to decrease nephrotoxic effects. Patient will need an antibiotic duration of 6 weeks. Vanco trough goal of 10-15. Vanco trough on 11/11 was 30.9,spoke with pharmacy-they are managing. Wound care center is taking care ulcer: They are using santyl. Wound care culture groomed with mixed skin simi. -keep sugar under 150 for proper wound management. -continue monitor hemoglobin, recommend transfusion if hemoglobin drops below 7.0. -patient has CKD stage 4 with an estimated creatinine clearance of 26mL/min--antibiotics renally dosed. -medical management per primary team -continue to monitor CBC and BMP -continue monitor signs infection Plan of care discussed with Dr. Payton Thank you for consultation. Physician Review: Patient Assessed, Agree with Above Assessment and Plan
[2020-11-03] MEDS ORDERED: VANCOMYCIN 1 GM in NA CHLORIDE 0.9% 250 ML IVPB SCH (17:00)
[2020-11-03] MEDS: HYDROCODONE/APAP 10/325 TAB PO PRN (17:51)
--- NOTE | 2020-11-03 18:53 | P.PN ---
Subjective Date of Service: 11/04/20 Chief Complaint: Left leg stump ulcer Patient complaining of pain in the right upper extremity. PICC line placed yesterday Physical Examination - Vital Signs Temperature: 97.3 F Blood Pressure: 170/90 Pulse: 72 Respirations: 18 Pulse Ox (%): 94 - Physical Exam General: Alert, In no apparent distress HEENT: Mucous membr. moist/pink Respiratory: Clear to auscultation bilaterally, Normal air movement Cardiovascular: No edema, Regular rate/rhythm, Normal S1 S2 Gastrointestinal: Soft and benign, Non-distended, No tenderness Musculoskeletal: Other (Left BKA) Neurological: Other (No focal motor deficit.) - Studies Microbiology Data (last 24 hrs): 10/29/20 13:50 Blood - Blood Aerobic Blood Culture - Final No growth in 5 days. 10/29/20 13:50 Blood - Blood Anaerobic Blood Culture - Final No growth in 5 days. 10/29/20 13:34 Blood - Blood Aerobic Blood Culture - Final No growth in 5 days. 10/29/20 13:34 Blood - Blood Anaerobic Blood Culture - Final No growth in 5 days. Assessment And Plan Physician Review: Patient Assessed, Agree with Above Assessment and Plan Physician Review Additional Text: Problem list Left BKA stump ulcer, with concern for osteomyelitis Diabetes mellitus, [id number] CKD 4 HTN Chronic tobacco use Chronic anemia, iron deficiency ID is following. Patient is currently on IV vancomycin. Renally dose Vanco. General surgery consulted for wound / possible abscess - recommend no surgical intervention at this time, MRI of the knee suggest osteomyelitis f/u blood culture - no growth Patient will need 6 weeks of IV vancomycin per ID recommendation. nephrology consulted for CKD 4. Dr. Syed is following. Hemoglobin up to 8.0 after 1 unit PRBC transfusion. Patient also received IV iron infusion. Continue current antihypertensives.
--- NOTE | 2020-11-03 19:56 | P.PN ---
Date of Service: 11/03/20 Vital Signs Temp Pulse Resp BP Pulse Ox 97.3 F 72 18 170/90 H 94 11/03/20 18:52 11/03/20 18:52 11/03/20 18:52 11/03/20 18:52 11/03/20 18:52 Medications Acetaminophen (Acetaminophen 500 Mg Tab) 500 mg PO Q6H PRN PRN Reason: Pain scale 2-4 (Mild) Hydrocodone Bitart/Acetaminophen (Hydrocodone/Apap 10/325 Tab) 1 tab PO Q6H PRN PRN Reason: Pain scale 5-7 (Moderate) Last Admin: 11/03/20 17:51 Dose: 1 tab Documented by: Albuterol Sulfate (Albuterol 2.5 Mg/3 Ml Neb Lorena) 2.5 mg NEB [id number] PRN PRN Reason: SHORTNESS OF BREATH Aspirin (Aspirin Ec 81 Mg Tab) 81 mg PO DAILY [facility] [place] Last Admin: 11/03/20 09:48 Dose: 81 mg Documented by: Calcitriol (Calcitrol 0.25 Mcg Cap) 0.5 mcg PO DAILY [facility] Last Admin: 11/03/20 09:48 Dose: 0.5 mcg Documented by: Carvedilol (Carvedilol 12.5 Mg Tab) 25 mg PO BID 6AM 6PM [facility] [place] Last Admin: 11/03/20 17:45 Dose: 25 mg Documented by: Cholecalciferol (Vitamin D 5,000 Unit Cap) 5,000 unit PO DAILY [facility] [place] Last Admin: 11/03/20 09:48 Dose: 5,000 unit Documented by: Collagenase (Collagenase 30 Gm Ointment) 1 appl TOP DAILY [facility] Last Admin: 11/03/20 09:49 Dose: 1 appl Documented by: Folic Acid (Folic Acid 1 Mg Tablet) 1 mg PO DAILY [facility] Last Admin: 11/03/20 09:48 Dose: 1 mg Documented by: Gabapentin (Gabapentin 100 Mg Cap) 100 mg PO TID [facility] Last Admin: 11/03/20 14:35 Dose: 100 mg Documented by: Glipizide (Glipizide 5 Mg Tab) 5 mg PO BIDWM [facility] Last Admin: 11/03/20 17:45 Dose: 5 mg Documented by: Guaifenesin (Guaifenesin 100 Mg/5 Ml Ucup) 200 mg PO QID PRN PRN Reason: COUGH Heparin Sodium (Porcine) (Heparin 5000 Unit/Ml 1 Ml Vial) 5,000 unit SQ Q12HR [facility] Last Admin: 11/03/20 09:49 Dose: 5,000 unit Documented by: Hydralazine HCl (Hydralazine Hcl 20 Mg/Ml Vial) 10 mg IV Q6HP PRN PRN Reason: FOR SBP>160 OR DBP>100 MMHG Last Admin: 11/03/20 00:57 Dose: 10 mg Documented by: Hydralazine HCl (Hydralazine Hcl 25 Mg Tablet) 25 mg PO BID [facility] Hydromorphone HCl (Hydromorphone Hcl 1 Mg/Ml Inj) 1 mg IV Q6HP PRN PRN Reason: Pain scale 5-7 (Moderate) Last Admin: 11/03/20 09:57 Dose: 1 mg Documented by: Meropenem (Merrem 1 Gm/100 Ml Ns Ivpb) 1 gm in 100 mls @ 100 mls/hr IV Q12H [facility] Last Admin: 11/03/20 14:35 Dose: 100 mls Documented by: Ferric Sodium Gluconate Complex 125 mg/ Sodium Chloride 110 mls @ 100 mls/hr IV DAILY [facility] Stop: 11/06/20 10:05 Last Admin: 11/03/20 10:50 Dose: 110 mls Documented by: Vancomycin HCl 750 mg/ Sodium (Chloride) 150 mls @ 100 mls/hr IVPB Q48H [facility] Dextrose/Water (Dextrose In Water (1-Liter)) 1,000 mls @ 100 mls/hr IV .Q10H [facility] Stop: 11/04/20 05:59 Insulin Human Regular (Insulin -Regular Human 50 Unit/0.5 Ml Ml) 0 unit SQ ACHS [facility]; Protocol Last Admin: 11/03/20 16:30 Dose: Not Given Documented by: Levofloxacin (Levofloxacin 500 Mg Tab) 500 mg PO Q48H [facility] [place]; Protocol Last Admin: 11/03/20 12:27 Dose: 500 mg Documented by: Melatonin (Melatonin 5 Mg Tablet) 10 mg PO BEDTIME PRN PRN PRN Reason: INSOMNIA Last Admin: 10/30/20 22:48 Dose: 10 mg Documented by: Nicotine (Nicotine 21 Mg/Pat) 21 mg TD DAILY [facility] Last Admin: 11/03/20 09:49 Dose: 21 mg Documented by: Ondansetron HCl (Ondansetron 4 Mg/2 Ml Vial) 4 mg IV Q8H PRN PRN Reason: NAUSEA / VOMITING Last Admin: 10/30/20 21:43 Dose: 4 mg Documented by: Sodium Chloride (Flush Normal Saline 10 Ml) 10 ml IV BID [facility] Last Admin: 11/03/20 09:49 Dose: 10 ml Documented by: Microbiology Results 10/29/20 13:50 Blood - Blood Aerobic Blood Culture - Final No growth in 5 days. 10/29/20 13:50 Blood - Blood Anaerobic Blood Culture - Final No growth in 5 days. 10/29/20 13:34 Blood - Blood Aerobic Blood Culture - Final No growth in 5 days. 10/29/20 13:34 Blood - Blood Anaerobic Blood Culture - Final No growth in 5 days. 10/29/20 14:01 Wound - Left Knee Gram Stain - Final 10/29/20 14:01 Wound - Left Knee Culture & Sensitivity - Final Assessment/ Plan: Nephrology No acute cardiac or pulmonary complaints. No CP or SOB. Reports severe pain from the PICC line No acute events overnight. Vitals, medications, blood work and imaging reviewed in the chart. NAD. MMM. Neck supple. CTA. RRR. Soft Abd. No C/C/E. Left BKA with stump wound. No rash. AAO. Normal Speech. EXAM DESCRIPTION: US - Renal Ultrasound-Complete - 10/30/2020 4:45 pm CLINICAL HISTORY: CKD COMPARISON: Abdomen Pelvis W Contrast dated 02/03/2020 FINDINGS: The right kidney measures 9.3 x 4.2 x 5.3 cm. The left kidney measures 9.6 x 5.2 x 4.2 centimeter. Cortical thickness is normal. There is significant increase in cortical echogenicity throughout both kidneys. This is a pattern typical for medical renal disease. No hydronephrosis or suspicious renal mass. No bladder wall thickening or mass. No intraluminal stone or mass. IMPRESSION: No hydronephrosis or suspicious renal mass. Bilateral medical renal disease evident. A/P: Continue the current POC and Medications other than the changes listed. AM Labs PRN. Recommend daily weight. Please see the orders for complete details. [place] CKD III/ IV with proteinuria -No NSAIDs -No urine studies available for evaluation today -Give a liter of D5W Hypocalcemia -Continue Vitamin D3 HTN with CKD -Continue Coreg 25mg BID -Start Hydralazine 25mg BID DM II with CKD & Polyneuropathy -RISS Moderate malnutrition -Encourage nutrition Anemia in chronic illness Iron Deficiency 8% -Continue IV iron series -PRBC as needed -Retacrit as needed Left Stump Osteomyeltis -Continue Meropenem -Renal dose Vancomycin -PICC line present for 6 weeks of abx
[2020-11-03] MEDS ORDERED: D5W 1,000 ML IV SCH (20:00)
[2020-11-03] MEDS: HYDRALAZINE HCL 25 MG TABLET PO SCH (20:20)
[2020-11-03] MEDS: ONDANSETRON 4 MG/2 ML VIAL IV PRN (23:41)
[2020-11-04] MEDS: HYDRALAZINE HCL 20 MG/ML VIAL IV PRN (00:21)
[2020-11-04 00:58] VITALS: O2SAT 92
[2020-11-04] MEDS: Meropenem 1 GM/100 ML BAG IV SCH (02:34)
[2020-11-04] MEDS: carvediloL 12.5 MG TAB PO SCH (05:23)
[2020-11-04 06:13] LABS: Phosphorus 3.3 mg/dL (2.5-4.9); Potassium 3.8 mmol/L (3.5-5.1)
[2020-11-04] MEDS: INSULIN -REGULAR HUMAN 50 UNIT/0.5 ML ML SQ SCH ×2 (07:30→11:30)
[2020-11-04] MEDS: FOLIC ACID 1 MG TABLET PO SCH (08:19)
[2020-11-04] MEDS: ASPIRIN EC 81 MG TAB PO SCH (08:20)
[2020-11-04] MEDS: GABAPENTIN 100 MG CAP PO SCH (08:20)
[2020-11-04] MEDS: glipiZIDE 5 MG TAB PO SCH (08:20)
[2020-11-04] MEDS: HYDRALAZINE HCL 25 MG TABLET PO SCH (08:20)
[2020-11-04] MEDS: CALCITROL 0.25 MCG CAP PO SCH (08:20)
[2020-11-04] MEDS: VITAMIN D 5,000 UNIT CAP PO SCH (08:20)
[2020-11-04] MEDS: HYDROCODONE/APAP 10/325 TAB PO PRN (08:21)
[2020-11-04] MEDS: COLLAGENASE 30 GM OINTMENT TOP SCH (08:22)
[2020-11-04] MEDS: NICOTINE 21 MG/PAT TD SCH (08:22)
[2020-11-04] MEDS: HEPARIN 5000 UNIT/ML 1 ML VIAL SQ SCH (08:23)
[2020-11-04] MEDS: SOD FERRIC GLUC COMPLX/SUCROSE 125 MG in NA CHLORIDE 0.9% 100 ML IV SCH (08:52)
--- NOTE | 2020-11-04 10:18 | P.PN ---
Subjective Date of Service: 11/04/20 Chief Complaint: Left leg stump ulcer Patient seen examined at bedside-states he is having overall body aches. Review of Systems 10-point ROS is otherwise unremarkable Physical Examination - Vital Signs Temperature: 98.1 F Blood Pressure: 171/83 Pulse: 76 Respirations: 20 Pulse Ox (%): 5 - Studies Laboratory Last Values WBC 6.20 K/uL (4.3-10.9) 10/29/20 13:34 RBC 2.66 M/uL (4.33-5.43) L 10/29/20 13:34 Hgb 7.1 g/dL (13.6-17.9) L* 10/29/20 13:34 Hct 21.4 % (39.6-49.0) L 10/29/20 13:34 MCV 80.5 fL (80-100) D 10/29/20 13:34 MCH 26.6 pg (27.0-35.0) L 10/29/20 13:34 MCHC 33.0 g/dL (32.0-36.0) 10/29/20 13:34 RDW 14.3 % (12.1-15.2) 10/29/20 13:34 Plt Count 163 K/uL (152-406) 10/29/20 13:34 MPV 8.7 fL (7.6-11.3) 10/29/20 13:34 Neutrophils % 75.4 % (41.7-73.7) H 10/29/20 13:34 Lymphocytes % 16.1 % (15.3-44.8) 10/29/20 13:34 Monocytes % 6.8 % (3.3-12.3) 10/29/20 13:34 Eosinophils % 1.2 % (0-4.4) 10/29/20 13:34 Basophils % 0.5 % (0-1.3) 10/29/20 13:34 Absolute Neutrophils 4.7 K/uL (1.8-8.0) 10/29/20 13:34 Absolute Lymphocytes 1.0 K/uL (0.7-4.9) 10/29/20 13:34 Absolute Monocytes 0.4 K/uL (0.1-1.3) 10/29/20 13:34 Absolute Eosinophils 0.1 K/uL (0-0.5) 10/29/20 13:34 Absolute Basophils 0.0 K/uL (0-0.5) 10/29/20 13:34 PT 10.7 SECONDS (9.5-12.5) 10/29/20 13:34 INR 0.93 10/29/20 13:34 APTT 24.2 SECONDS (24.3-36.9) L 10/29/20 13:34 Sodium 141 mmol/L (136-145) 10/29/20 13:34 Potassium 3.5 mmol/L (3.5-5.1) 10/29/20 13:34 Chloride 108 mmol/L (98-107) H 10/29/20 13:34 Carbon Dioxide 24 mmol/L (21-32) 10/29/20 13:34 BUN 40 mg/dL (7-18) H 10/29/20 13:34 Creatinine 1.92 mg/dL (0.55-1.3) H 10/29/20 13:34 Estimated GFR 35 mL/min (=/>90) L 10/29/20 13:34 Glucose 104 mg/dL (74-106) 10/29/20 13:34 Calcium 8.3 mg/dL (8.5-10.1) L 10/29/20 13:34 Total Bilirubin 0.3 mg/dL (0.2-1.0) 10/29/20 13:34 Direct Bilirubin 0.1 mg/dL (0-0.2) 10/29/20 13:34 AST 25 U/L (15-37) 10/29/20 13:34 ALT 16 U/L (12-78) 10/29/20 13:34 Alkaline Phosphatase 151 U/L (45-117) H 10/29/20 13:34 Serum Total Protein 7.5 g/dL (6.4-8.2) 10/29/20 13:34 Albumin 2.5 g/dL (3.4-5.0) L 10/29/20 13:34 Globulin 5.0 g/dL (2.3-3.5) H 10/29/20 13:34 Albumin/Globulin Ratio 0.5 (1.1-1.8) L 10/29/20 13:34 Amylase 140 U/L (25-115) H 10/29/20 13:34 Lipase 553 U/L (73-393) H 10/29/20 13:34 Procalcitonin 0.05 ng/mL (<0.050) 10/29/20 13:34 Urine RBC Cancelled 10/29/20 13:08 Urine WBC Cancelled 10/29/20 13:08 Ur Squamous Epith Cells Cancelled 10/29/20 13:08 Ur Urothelial Cells Cancelled 10/29/20 13:08 Calcium Oxalate Crystal Cancelled 10/29/20 13:08 Uric Acid Crystals Cancelled 10/29/20 13:08 Triple Phos Crystals Cancelled 10/29/20 13:08 Other Crystals Cancelled 10/29/20 13:08 Amorphous Sediment Cancelled 10/29/20 13:08 Glitter Cells Cancelled 10/29/20 13:08 Urine Bacteria Cancelled 10/29/20 13:08 Hyaline Casts Cancelled 10/29/20 13:08 Fine Granular Casts Cancelled 10/29/20 13:08 Coarse Granular Casts Cancelled 10/29/20 13:08 Waxy Casts Cancelled 10/29/20 13:08 RBC Casts Cancelled 10/29/20 13:08 WBC Casts Cancelled 10/29/20 13:08 Urine Mucus Cancelled 10/29/20 13:08 Urine Other Cancelled 10/29/20 13:08 Urine Trichomonas Cancelled 10/29/20 13:08 Urine Yeast Cancelled 10/29/20 13:08 Ur Yeast w Hyphae Cancelled 10/29/20 13:08 Urine Yeast (Budding) Cancelled 10/29/20 13:08 Urine Sperm Cancelled 10/29/20 13:08 Urine Culture Reflexed Cancelled 10/29/20 13:08 Urine Total Volume Cancelled 10/29/20 13:08 Temp Pulse Resp BP Pulse Ox 98.1 F 76 20 171/83 H 5 L 11/04/20 08:00 11/04/20 08:00 11/04/20 08:00 11/04/20 08:00 11/04/20 08:00 Active Medications Acetaminophen (Acetaminophen 500 Mg Tab) 500 mg PO Q6H PRN PRN Reason: Pain scale 2-4 (Mild) Hydrocodone Bitart/Acetaminophen (Hydrocodone/Apap 10/325 Tab) 1 tab PO Q6H PRN PRN Reason: Pain scale 5-7 (Moderate) Last Admin: 11/04/20 08:21 Dose: 1 tab Documented by: Albuterol Sulfate (Albuterol 2.5 Mg/3 Ml Neb [place]) 2.5 mg NEB [id number] PRN PRN Reason: SHORTNESS OF BREATH Aspirin (Aspirin Ec 81 Mg Tab) 81 mg PO DAILY [facility] Last Admin: 11/04/20 08:20 Dose: 81 mg Documented by: Calcitriol (Calcitrol 0.25 Mcg Cap) 0.5 mcg PO DAILY [facility] Last Admin: 11/04/20 08:20 Dose: 0.5 mcg Documented by: Carvedilol (Carvedilol 12.5 Mg Tab) 25 mg PO BID 6AM 6PM [facility] Last Admin: 11/04/20 05:23 Dose: 25 mg Documented by: Cholecalciferol (Vitamin D 5,000 Unit Cap) 5,000 unit PO DAILY [facility] Last Admin: 11/04/20 08:20 Dose: 5,000 unit Documented by: Collagenase (Collagenase 30 Gm Ointment) 1 appl TOP DAILY [facility] Last Admin: 11/04/20 08:22 Dose: 1 appl Documented by: Folic Acid (Folic Acid 1 Mg Tablet) 1 mg PO DAILY [facility] Last Admin: 11/04/20 08:19 Dose: 1 mg Documented by: Gabapentin (Gabapentin 100 Mg Cap) 100 mg PO TID [facility] Last Admin: 11/04/20 08:20 Dose: 100 mg Documented by: Glipizide (Glipizide 5 Mg Tab) 5 mg PO BIDWM [facility] Last Admin: 11/04/20 08:20 Dose: 5 mg Documented by: Guaifenesin (Guaifenesin 100 Mg/5 Ml Ucup) 200 mg PO QID PRN PRN Reason: COUGH Heparin Sodium (Porcine) (Heparin 5000 Unit/Ml 1 Ml Vial) 5,000 unit SQ Q12HR [facility] Last Admin: 11/04/20 08:23 Dose: 5,000 unit Documented by: Hydralazine HCl (Hydralazine Hcl 20 Mg/Ml Vial) 10 mg IV Q6HP PRN PRN Reason: FOR SBP>160 OR DBP>100 MMHG Last Admin: 11/04/20 00:21 Dose: 10 mg Documented by: Hydralazine HCl (Hydralazine Hcl 25 Mg Tablet) 25 mg PO BID [facility] Last Admin: 11/04/20 08:20 Dose: 25 mg Documented by: Hydromorphone HCl (Hydromorphone Hcl 1 Mg/Ml Inj) 1 mg IV Q6HP PRN PRN Reason: Pain scale 5-7 (Moderate) Last Admin: 11/03/20 20:19 Dose: 1 mg Documented by: Meropenem (Merrem 1 Gm/100 Ml Ns Ivpb) 1 gm in 100 mls @ 100 mls/hr IV Q12H [facility] Last Admin: 11/04/20 02:34 Dose: 100 mls Documented by: Ferric Sodium Gluconate Complex 125 mg/ Sodium Chloride 110 mls @ 100 mls/hr IV DAILY [facility] Stop: 11/06/20 10:05 Last Admin: 11/04/20 08:52 Dose: 110 mls Documented by: Vancomycin HCl 750 mg/ Sodium (Chloride) 150 mls @ 100 mls/hr IVPB Q48H [facility] Insulin Human Regular (Insulin -Regular Human 50 Unit/0.5 Ml Ml) 0 unit SQ ACHS [facility]; Protocol Last Admin: 11/04/20 07:30 Dose: Not Given Documented by: Levofloxacin (Levofloxacin 500 Mg Tab) 500 mg PO Q48H [facility]; Protocol Last Admin: 11/03/20 12:27 Dose: 500 mg Documented by: Melatonin (Melatonin 5 Mg Tablet) 10 mg PO BEDTIME PRN PRN PRN Reason: INSOMNIA Last Admin: 10/30/20 22:48 Dose: 10 mg Documented by: Nicotine (Nicotine 21 Mg/Pat) 21 mg TD DAILY [facility] Last Admin: 11/04/20 08:22 Dose: 21 mg Documented by: Ondansetron HCl (Ondansetron 4 Mg/2 Ml Vial) 4 mg IV Q8H PRN PRN Reason: NAUSEA / VOMITING Last Admin: 11/03/20 23:41 Dose: 4 mg Documented by: Sodium Chloride (Flush Normal Saline 10 Ml) 10 ml IV BID [facility] Last Admin: 11/04/20 08:22 Dose: 10 ml Documented by: Microbiology Data (last 24 hrs): 10/29/20 13:50 Blood - Blood Aerobic Blood Culture - Final No growth in 5 days. 10/29/20 13:50 Blood - Blood Anaerobic Blood Culture - Final No growth in 5 days. 10/29/20 13:34 Blood - Blood Aerobic Blood Culture - Final No growth in 5 days. 10/29/20 13:34 Blood - Blood Anaerobic Blood Culture - Final No growth in 5 days. Assessment And Plan - Plan General: Alert, In no apparent distress HEENT: Atraumatic, Normocephalic Neck: Supple, 2+ carotid pulse no bruit Respiratory: Clear to auscultation bilaterally, Normal air movement Cardiovascular: No edema, Normal pulses Capillary refill: <2 Seconds Gastrointestinal: Normal bowel sounds, Soft and benign Musculoskeletal: No clubbing, No swelling Integumentary: Other (Left BKA, small ulceration on left BKA.) Antibiotics: Vancomycin start: 10/31 stop: 12/12 Merum start: 11/01 stop: 12/12 Assessment: -left BKA stump ulcer with osteomyelitis -diabetes type 2 -iron-deficiency anemia -CKD stage 4 -chronic tobacco user Plan: -MRI confirmed osteomyelitis of the left BKA stump. Continue with current IV a ntibiotics, Zosyn DC on 11/01 and Merum started to decrease nephrotoxic effects. Patient will need an antibiotic duration of 6 weeks. Vanco trough goal of 10- 15. Vanco trough on 11/11 was 30.9,spoke with pharmacy-they are managing. Repeat trough on 11/03 was 20.7. 11/04: pending. Wound care center is taking care ulcer: They are using santyl. Wound care culture groomed with mixed skin simi. -keep sugar under 150 for proper wound management. -continue monitor hemoglobin, recommend transfusion if hemoglobin drops below 7.0. -patient has CKD stage 4 with an estimated creatinine clearance of 26mL/min--antibiotics renally dosed. -medical management per primary team -continue to monitor CBC and BMP -continue monitor signs infection Plan of care discussed with Dr. Payton Thank you for consultation. Physician Review: Patient Assessed, Agree with Above Assessment and Plan
[2020-11-04 13:55] VITALS: BP 170/90; TEMP 97.3
[2020-11-04] MEDS ORDERED: VANCOMYCIN 750 MG in NA CHLORIDE 0.9% 150 ML IVPB SCH (17:00)
== END 2020-11-04 16:00 | disposition home health service (06) | DRG 565 ==
LOC: ER 10:46 → ERHOLD 14:49 → 2ND 19:29
PROVIDERS: ADMIT Internal Medicine; ATTEND Internal Medicine
PROC: 30233N1 Transfusion of Nonautologous Red Blood Cells into Peripheral Vein, Percutaneous Approach (ICD-10-PCS; principal; 2020-11-02)
PROC: 02HV33Z Insertion of Infusion Device into Superior Vena Cava, Percutaneous Approach (ICD-10-PCS; 2020-11-02)
DX: T87.44 Infection of amputation stump, left lower extremity (principal); R64 Cachexia; M86.8X8 Other osteomyelitis, other site; N18.4 Chronic kidney disease, stage 4 (severe); N17.9 Acute kidney failure, unspecified; E44.0 Moderate protein-calorie malnutrition; L03.116 Cellulitis of left lower limb; I12.9 Hypertensive chronic kidney disease with stage 1 through stage 4 chronic kidney disease, or unspecified chronic kidney disease; E11.22 Type 2 diabetes mellitus with diabetic chronic kidney disease; E11.69 Type 2 diabetes mellitus with other specified complication; E11.51 Type 2 diabetes mellitus with diabetic peripheral angiopathy without gangrene; E11.42 Type 2 diabetes mellitus with diabetic polyneuropathy; E11.628 Type 2 diabetes mellitus with other skin complications; E83.51 Hypocalcemia; D50.9 Iron deficiency anemia, unspecified; N40.1 Benign prostatic hyperplasia with lower urinary tract symptoms; E87.6 Hypokalemia; D63.8 Anemia in other chronic diseases classified elsewhere; F17.210 Nicotine dependence, cigarettes, uncomplicated; Z68.23 Body mass index [BMI] 23.0-23.9, adult; Z88.0 Allergy status to penicillin; Z79.899 Other long term (current) drug therapy; Z89.512 Acquired absence of left leg below knee; Z79.84 Long term (current) use of oral hypoglycemic drugs; Z20.822 Contact with and (suspected) exposure to COVID-19; Z23 Encounter for immunization
CPT/HCPCS: 36415; 36430; 36569; 71045; 73700; 76770; 80048; 80053; 80069; 80076; 80202; 81001; 82043; 82150; 82274; 82570; 82607; 82728; 82746; 82947; 83036; 83540; 83690; 83735; 84145; 84466; 84484; 84550; 85014; 85018; 85025; 85610; 85652; 85730; 86140; 86850; 86900; 86901; 87040; 87070; 87205; 90471; 90732; 93005; 96365; 96366; 99285; J0360; J1170; J1644; J2185; J2270; J2405; J2916; J3010; J3370; J3590; J7050; J7120; P9016; Q5106; U0003

== ENCOUNTER 2020-11-06 15:08 | Inpatient (IN) | payer OTHER ==
--- OUTSIDE RECORDS SUMMARY | 2020-11-06 15:14 | XMS REPORT | Continuity of Care Document ---
:1950 Author Organization [facility] t Address [facility] [place] [address] Care Team Providers Name Role Phone Lynda Espinoza MD Attending Clinician Niranjan Jackson MD Attending Clinician Lynda ESPINOZA Attending Clinician Unavailable Narda MAXWELL, Eric Attending Clinician Jose Ross MD Attending Clinician Lynda ESPINOZA Admitting Clinician Unavailable Payers Payer Name Policy Type Policy Effective Date Expiration Date Sour ce Number [employer]ICARE [id number] 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 00:00: Me dical site site 00 Center Liver Liver Disease Active [facility] cirrhosis cirrhosis 3- [facility] - 00:00: Medical 00 [place] Portal Portal Disease Active [facility] hypertensi hypertensi 3- Estrella kes - ve ve 00:00: Medical gastropath gastropath 00 Ce nter y y GI bleed GI bleed Disease Active [facility] t 3-18 [facility] - 00:00: Medical 00 [place] Allergies, Adverse Reactions, Alerts Allergy Allergy Status Severity Reaction(s) Onset Inactive Treating Comm ents Source Name Type Date Date Clinician Penicill Drug Active Rash [facility] Allergy 12[facility]13 [facility] - 00:00: Medical 00 Center Penicill Adverse Active Info Not [facility] t amine Reaction Available [facility] History Social Habit Start Date Stop Date Quantity Comments Source Sex Assigned At [facility] Tobacco use and 2020-10-04 2020-10-04 Never used [facility] - exposure 00:00:00 00:00:00 [facility] Alcohol intake 2020-10-04 2020-10-04 Current drinker [facility] Elvis hewitt [facility] - 00:00:00 00:00:00 of alcohol [facility] (finding) Smoking Status Start Date Stop Date Source Current every day smoker 2020-10-04 00:00:00 [facility] Medications Ordered Filled Start Stop [...] 650mg Take [address] en -03 10-16 tablets [facility] - (TYLENOL) 00:00: 23:59 (650 [...] [address] [facility] Mera [facility] Hydrochloro Hydrochloro Yes Alfonzo [address] thiazide thiazide Mera in the Luke s - morning [facility] Pantoprazol Pantoprazol Yes Alfonzo [address] e Sodium e Sodium Mera [facility] Metoprolol Metoprolol Yes Alfonzo [address] Tartrate Tartrate Mera with food L [facility] Ferrous Ferrous Yes Alfonzo [address] Sulfate Sulfate Mera [facility] - [facility] Amlodipine Amlodipine Yes Alfonzo [address] Besylate Besylate Mera [facility] Gabapentin Gabapentin Yes Alfonzo [address] Mera [facility] Metformin Metformin Yes Alfonzo [address] HCl HCl Mera with a Lukes - meal [facility] Vital Signs Vital Name Observation Time Observation Value Comments Source Systolic blood 2020-10-03 19:17:00 111 mm[Hg] [facility] Diastolic blood 2020-10-03 19:17:00 61 mm[Hg] [facility] Heart rate 2020-10-03 19:17:00 75 /min [facility] Body temperature 2020-10-03 19:17:00 36.94 Latesha [facility] Respiratory rate 2020-10-03 19:17:00 17 /min [facility] Oxygen saturation in 2020-10-03 19:17:00 98 /min [facility] - Arterial blood by Medical Ce nter Pulse oximetry Body weight 2020-10-03 07:05:00 51.982 kg [facility] BMI 2020-10-03 07:05:00 20.96 kg/m2 [facility] Body height 2020-09-30 05:22:00 157.5 cm [facility] Procedures Procedure Date / Time Performed Performing Clinician Sourc e POCT-GLUCOSE METER 2020-10-03 18:09:00 Alice Jackson [facility] HEPATITIS B PCR, 2020-10-03 15:49:00 Narda [facility] HEPATITIS C PCR, 2020-10-03 15:49:00 Sarkis Laboy [facility] POCT-GLUCOSE METER 2020-10-03 11:48:00 Renetta [facility] POCT-GLUCOSE METER 2020-10-03 08:34:00 Renetta [facility] CBC W/PLT COUNT & AUTO 2020-10-03 04:35:00 Nate Fields [facility] CBC (HEMOGRAM ONLY) 2020-10-03 04:35:00 Delmi Peguero [facility] BASIC METABOLIC PANEL (7) 2020-10-03 04:35:00 Delmi Peguero [facility] ACTIN (SMOOTH MUSCLE) 2020-10-03 04:35:00 [facility]GG [facility] ALPHA FETOPROTEIN (AFP), 2020-10-03 04:35:00 [facility] TUMOR MARKER [facility] [id number]\\, 2020-10-03 04:35:00 [facility] SERUM [facility] ANTI-NUCLEAR ANTIBODY 2020-10-03 04:35:00 [facility] (GAMAL) [facility] BILIRUBIN, DIRECT 2020-10-03 04:35:00 Wendy [facility] CERULOPLASMIN 2020-10-03 04:35:00 Wendy [facility] HEPATITIS A ANTIBODY, IGG 2020-10-03 04:35:00 Wendy [facility] HEPATITIS B SURFACE 2020-10-03 04:35:00 Wendy, Kiah [facility] - ANTIBODY [facility] HEPATITIS B SURFACE 2020-10-03 04:35:00 [facility] ANTIGEN [facility] HEPATITIS B CORE 2020-10-03 04:35:00 [facility] Kulwindermary [facility] - ANTIBODY, TOTAL [facility] HEPATITIS C ANTIBODY 2020-10-03 04:35:00 [facility] Delfinaq [facility] MITOCHONDRIA M2 ANTIBODY 2020-10-03 04:35:00 [facility] - (IGG) [facility] PROTHROMBIN TIME/INR 2020-10-03 04:35:00 [facility] POCT-GLUCOSE METER 2020-10-02 21:19:00 Alice Jackson [facility] CBC W/PLT COUNT & AUTO 2020-10-02 17:29:00 Nate Fields [facility] VANCOMYCIN LEVEL, TROUGH 2020-10-02 17:29:00 Severo Martinez [facility] POCT-GLUCOSE METER 2020-10-02 17:24:00 Alice Jackson [facility] POCT-GLUCOSE METER 2020-10-02 11:21:00 Alice Jackson [facility] POCT-GLUCOSE METER 2020-10-02 08:03:00 Alice Jackson [facility] CBC W/PLT COUNT & AUTO 2020-10-02 03:39:00 Nate Fields [facility] COMPREHENSIVE METABOLIC 2020-10-02 03:39:00 Delmi Peguero [facility] POCT-GLUCOSE METER 2020-10-01 21:23:00 Alice Jackson [facility] HEMOGLOBIN A1C 2020-10-01 14:34:00 GerardDelmi crum [facility] CBC W/PLT COUNT & AUTO 2020-10-01 12:08:00 Adrienne Ortiz [facility] DIFFERENTIAL [facility] POCT-GLUCOSE METER 2020-10-01 10:58:00 Alice Jackson [facility] REPORT OF PROCEDURE - 2020-10-01 10:35:58 Narda [facility] ENDOSCOPY [facility] VANCOMYCIN LEVEL, RANDOM 2020-10-01 10:06:00 Meghann Grier [facility] TISSUE EXAM 2020-10-01 09:43:00 Narda [facility] UPPER ENDOSCOPY,BIOPSY 2020-10-01 09:14:00 Narda [facility] POCT-GLUCOSE METER 2020-10-01 08:23:00 Alexis Jacksonurad [facility] POCT-GLUCOSE METER 2020-10-01 05:11:00 Renetta Alice [facility] VITAMIN B12 AND FOLATE 2020-10-01 04:42:00 Ford Espinoza [facility] IRON, TIBC, % SAT. 2020-10-01 04:42:[address] [facility] 2020-10-01 04:42:00 Ford Espinoza [facility] CBC W/PLT COUNT & AUTO 2020-10-01 02:44:[address] [facility] - DIFFERENTIAL [facility] SARS-COV2/RT-PCR ([facility] & 2020-10-01 02:44:[address] [facility] - REF LABS) [facility] COMPREHENSIVE METABOLIC 2020-10-01 02:44:00 Nate Fields [facility] CBC W/PLT COUNT & AUTO 2020-09-30 20:01:00 Adrienne Ortiz [facility] DIFFERENTIAL [facility] POCT-GLUCOSE METER 2020-09-30 20:00:00 Alice Jackson [facility] CBC (HEMOGRAM ONLY) 2020-09-30 15:15:00 Nate Fields [facility] POCT-GLUCOSE METER 2020-09-30 14:20:00 Alice Jackson [facility] US ABDOMEN LIMITED 2020-09-30 11:32:00 Ford Espinoza [facility] BLOOD CULTURE 2020-09-30 09:45:00 Planejose angel [facility] CBC W/PLT COUNT & AUTO 2020-09-30 09:22:00 Planejose angel [facility] BLOOD CULTURE 2020-09-30 09:22:00 [facility] LACTIC ACID, VENOUS 2020-09-30 09:22:00 [facility] URINALYSIS W/ REFLEX 2020-09-30 09:22:00 [facility] URINE CULTURE [facility] XR CHEST 1 VIEW 2020-09-30 08:39:00 Adrienne Ortiz [facility]/BEDSIDE [facility] HEMOGLOBIN A1C 2020-09-30 06:52:00 Malcolm Hernandez [facility] POCT-GLUCOSE METER 2020-09-30 06:27:00 Ford Espinoza [facility] PROTHROMBIN TIME/INR 2020-09-30 06:22:00 Malcolm Hernandez [facility], [facility] APTT 2020-09-30 06:22:00 Malcolm Hernandez [facility] COMPREHENSIVE METABOLIC 2020-09-30 06:22:00 Malcolm Hernandez [facility] REPORT OF PROCEDURE - 2020-09-30 00:00:[address] [facility] - ENDOSCOPY SCAN Scanning [facility] SARS-COV2/RT-PCR ([facility] & 2020-01-25 19:40:[address] [facility] - REF LABS) [facility] Plan of Care Planned Activity Planned Date Details Comments Source Future Scheduled 2020-07-[address] [facility] - Test 00:00:00 (12+) [code = [facility] DEPRESSION SCREENING (12+)] Future Scheduled 2020-07-16 [...] es - Test 00:00:00 [facility] colon (procedure) [code = 448860743] Encounters Start End Encounter Admission Attending Care Care Encounter Source Date/Time Date/Time Type Type Clinicians Facility Department ID 2020-06-24 2020-06-24 [facility] [id number] 2020-06-03 2020-06-03 [facility] [id number] 2020-05-25 2020-05-25 [facility] [id number] 2020-05-13 2020-05-13 [facility] [id number] [facility] 2020-04-29 2020-04-29 [facility] [id number] 2020-04-15 2020-04-15 [facility] [id number] [facility] 2020-04-15 2020-04-15 [facility] [id number] [facility] 2020-04-07 2020-04-07 [facility] [id number] [facility] 2020-03-26 2020-03-26 [facility] [id number] [facility] 09[facility]10:00 09:10:00 [facility] Medicine Outpati ent Clinics 2019-09-21 2019-09-21 [facility] [id number] 21:47:00 21:47:00 [facility] Medicine Outpati ent Clinics 2019-09-19 2019-09-19 [facility] [id number] 13:30:00 13:30:00 [facility] Medicine Outpati [facility] Clinics 2019-09-10 2019-09-10 [facility] [id number] 10:15:00 10:15:00 t [facility] Medicine Outpati ent Clinics 2019-06-20 2019-06-20 [facility] [id number] 13:20:00 13:20:00 t [facility] Medicine Outpati ent Clinics 2019-03-21 2019-03-21 [facility] [id number] 11:20:00 11:20:00 t [facility] Medicine Outpati ent Clinics Results Test Description Test Time Test Comments Results Result Comments Source Actin (Smooth Muscle) Antibody, IgG 2020-10-07 01:25:00 Test Item Value Reference Range Interpretation Comme nts Anti-Smooth Muscle <20 See Note: U Reference Range:<20 Ab (test code = NEGATIVE> OR = 20 POSITIVE [id number]) Antibodies raad gnizing actin are the main compon entof smooth muscle antibodi es associated withautoimmune liver disease. Actin antibodie s arefound in approximately 7 5% of patients withautoimmune hepatitis (AIH) type 1, approxi cbgabf65% of patients with a utoimmune cholangitis,chitra roximately 30% of patients with p rimary biliarycirrhosi s, and approximately 2 % of healthy people.High giulia ues are closely correlated with AIH type 1. ELIANA (test code = Performing Lab ELIANA) EZ [facility] [address] [place] [id number] Obdulia Ulrich MD, PhD, MARINA [facility] CenterCeruloplasmin2021-03-24 14:07:00 Test Item Value Reference Range Interpretation Comments Ceruloplasmin (test code 39 mg/dL 18-36 H = 20190906) ELIANA (test code = ELIANA) Performing Lab *GIULIA [facility], [address] [place] [phone] Nereida Rocha MD Lab Interpretation (test Abnormal code = 62950-5) [facility] CenterMitochondria M2 Antibody (IgG)2020-10-06 13:29:00 Test Item Value Reference Range Interpretation Comments Mitochondria M2 Ab 20.3 U See Note: H Reference (test code = 8043807) Range: NEGATIVE: < OR = 20.0EQUIVOCAL: 20.1-24.9POSITI VE: > OR = 25.0 ELIANA (test code = ELIANA) Performing Lab EZ [facility] [address] [place] [address] Obdulia Ulrich MD, PhD, MARINA Lab Interpretation Abnormal (test code = 65259-4) [facility] - Routine (Left Venipuncture) 2020-10-05 14:00:00 Test Item Value Reference Range Interpretation Comments Result (test code = No growth in 5 days 6463-4) [facility] CenterBLO[facility] [id number] 14:00:00 Test Item Value Reference Range Interpretation Comments CULTURE (BEAKER) (test No growth in 5 days code = 1095) BLOOD [id number] 11:00:00 Test Item Value Reference Range Interpretation Comments CULTURE (BEAKER) (test No growth in 5 days code = 1095) Hepatitis B PCR, [id number] 20:15:00 Test Item Value Reference Range Interpretation Comments HBV PCR, Quantitative HBV DNA not detected HBV DNA not (test code = 60238-5) detected ELIANA (test code = ELIANA) This test uses a Real-Time Polymerase Chain Reaction (RT-PCR) methodology and was performed using MADONNA AmpliPrep/MADONNA TaqMan HBV Test, v2.0 ([employer] Reportable range for this assay is 20 - 170,000,000 IU per mL (1.30 - 8.23 Log IU/mL). Lab Interpretation Normal (test code = 33524-1) [facility] CenterHE[facility]ALTIS B PCR, [id number] 20:15:00 Test Item Value Reference Range Interpretation Comments HBV RESULT COMPONENT HBV DNA not detected HBV DNA not detected (BEAKER) (test code = 2701) This test uses a Real-Time Polymerase Chain Reaction (RT-PCR) methodology and was performed using MAD[employer]NA AmpliPrep/MADONNA TaqMan HBV Test, v2.0 ([employer]Reportable range for this assay is 20 - 170,000,000 IU per mL (1.30 - 8.23 Log IU/mL).Hepatitis C PCR, [id number] 19:56:00 Test Item Value Reference Range Interpretation Comments HCV PCR, Quantitative 580351 See_Comment H [Auto mated (test code = 39896-3) messag e] The system which generated this result transmitted reference range : <15 IU/mL. The reference range was not used to interpret this result as normal/abnormal . ELIANA (test code = ELIANA) This test uses a Real-Time Polymerase Chain Reaction (RT-PCR) methodology and was performed using MADONNA Ampliprep/MADONNA TaqMan HCV test kit version 2.0 ([employer] Reportable range for this assay is 15 - 100,000,000 IU per mL (1.18 - 8.00 Log IU/mL). Lab Interpretation Abnormal (test code = 11296-5) [facility] CenterHECARRO[facility]OSPITALTIS C PCR, [id number] 19:56:00 Test Item Value Reference Range Interpretation Comments HCV NUMERIC RESULT (BEAKER) 457614 IU/mL <15 H (test code = 2700) This test uses a Real-Time Polymerase Chain Reaction (RT-PCR) methodology and was performed using MADONNA Ampliprep/MADONNA TaqMan HCV test kit version 2.0 ([employer]Reportable range for this assay is 15 - 100,000,000 IU per mL (1.18 - 8.00 Log IU/mL).Anti-Nuclear Antibody (GAMAL) 2020-10-04 12:41:00 Test Item Value Reference Range Interpretation Comments GAMAL (test code = 08730-4) Negative Negative ELIANA (test code = ELIANA) Test performed by IFA method. Lab Interpretation (test Normal code = 09469-3) [facility] CenterANTI-NUCLEAR ANTIBODY (GAMAL)2020-10-04 12:41:00 Test Item Value Reference Range Interpretation Comments ANTI-NUCLEAR ANTIBODY (GAMAL) (BEAKER) Negative Negative (test code = 418) Test performed by IFA method.POC-Glucose [id number] 18:23:00 Test Item Value Reference Range Interpretation Comments POC-Glucose Meter (test 127 mg/dL 70-110 H : TE STED AT [facility] code = 1538) [address] [facility], 770 30: Tuyere Fitter/Techni min ID = [id number] for Igbalajobi, She neto Lab Interpretation (test Abnormal code = 82762-5) [facility] CenterPOCT-GLUCOSE [id number] 18:23:00 Test Item Value Reference Range Interpretation Comments POC-GLUCOSE METER 127 mg/dL 70-110 H : TESTED A T [facility] 6720 ([facility]) (test code = [facility], 1538) [address]: Tuyere Fitter/Techni min ID = [id number] for Igbalajobi, She neto POCT-GLUCOSE [id number] 12:00:00 Test Item Value Reference Range Interpretation Comments POC-GLUCOSE METER 78 mg/dL 70-110 : TESTED A T [facility] 67[address] ([facility]) (test code = [facility], 1538) [address]: Tuyere Fitter/Techni min ID = [id number] for Igba lorenzo Kassandra Hepatitis B core antibody, [id number] 10:45:00 Test Item Value Reference Range Interpretation Comments Hep B Core Total Ab (test Reactive Nonreactive A code = 04499-2) ELIANA (test code = ELIANA) Tuyere Fitter ID - DBOperator ID - DBOperator ID - DB Lab Interpretation (test Abnormal code = 75413-8) [facility] CenterHEPATITIS B CORE ANTIBODY, [id number] 10:45:00 Test Item Value Reference Range Interpretation Comments HEPATITIS B CORE TOTAL ANTIBODY Reactive Nonreactive A (BEAKER) (test code = 497) Tuyere Fitter ID - DBOperator ID - DBOperator ID - DBPOCT-GLUCOSE [id number] 08:50:00 Test Item Value Reference Range Interpretation Comments POC-GLUCOSE METER 83 mg/dL 70-110 : TESTED A T [facility] 6720 (BEAKER) (test code = DEVON MADRID [place], 1538) [address]: Tuyere Fitter/Techni min ID = [id number] for Kassandra Woods [id number] 08:30:00 Test Item Value Reference Range Interpretation Comments A-1 Antitrypsin (test 189.40 mg/dL 90-200 code = 1825-9) ELIANA (test code = ELIANA) Tuyere Fitter ID - DBOperator ID - DBOperator ID - DB Lab Interpretation (test Normal code = 61184-2) [facility] [id number] 08:30:00 Test Item Value Reference Range Interpretation Comments ALPHA-1 ANTITRYPSIN (BEAKER) 189.40 mg/dL 90.00-200.00 (test code = 502) Tuyere Fitter ID - DBOperator ID - DBOperator ID - DBHepatitis A antibody, IgG 2020-10-03 07:01:00 Test Item Value Reference Range Interpretation Comments Hep A IgG (test code = Reactive Nonreactive A 24169-9) ELIANA (test code = ELIANA) Tuyere Fitter ID - DB Lab Interpretation (test Abnormal code = 63434-5) [facility] CenterHEPATITIS A ANTIBODY, [id number] 07:01:00 Test Item Value Reference Range Interpretation Comments HEPATITIS A IGG ANTIBODY (BEAKER) Reactive Nonreactive A (test code = 2797) Tuyere Fitter ID - DBHepatitis C [id number] 06:59:00 Test Item Value Reference Range Interpretation Comments Hepatitis C Ab (test code = Reactive Nonreactive A 81738-2) ELIANA (test code = ELIANA) Tuyere Fitter ID - DB Lab Interpretation (test Abnormal code = 89253-6) [facility] CenterHEPATITIS C [id number] 06:59:00 Test Item Value Reference Range Interpretation Comments HEPATITIS C ANTIBODY (BEAKER) (test Reactive Nonreactive A code = 367) Tuyere Fitter ID - DBBasic Metabolic [id number] 06:38:00 Test Item Value Reference Range Interpretation [...] (test code = 7.8 mg/dL 8.4-10.2 L 70696-5) EGFR (test code = 39 mL/min/1.73 sq m [facility] [place] [address]-0) NOT ACCURATE CREATININE CLEARANCE IN PREDICTING GLOMERULAR FILTRATION RATE . ESTIMATED GFR I S NOT APPLICABLE FOR DIALYSIS PATIENTS. ELIANA (test code = ELIANA) Tuyere Fitter ID - EDASI Lab Interpretation Abnormal (test code = 83242-0) [facility] CenterBilirubin, [id number] 06:38:00 Test Item Value Reference Range Interpretation Comments Bilirubin, Direct (test 0.2 mg/dL 0.1-0.5 code = 1968-7) ELIANA (test code = ELIANA) Tuyere Fitter ID - EDASI Lab Interpretation (test Normal code = 70387-6) [facility] CenterBILIRUBIN, [id number] 06:38:00 Test Item Value Reference Range Interpretation Comments BILIRUBIN DIRECT (BEAKER) (test 0.2 mg/dL 0.1-0.5 code = 706) Tuyere Fitter ID - EDASIBASIC METABOLIC [id number] 06:38:00 Test Item Value Reference Range Interpretation [...] S NOT APPLICABLE FOR DIALYSIS PATIEN TS. Tuyere Fitter ID - EDASIHepatitis B surface [id number] 06:14:00 Test Item Value Reference Range Interpretation Comments Hep B S Ab (test code <8.0 See_Comment [Auto mated = 02865-1) message] The system which generated this result transmit altagracia reference range : <8.0 mIU/mL. Th e reference range was not used to interpret this result as normal/abnormal . ELIANA (test code = ELIANA) Tuyere Fitter ID - DB Lab Interpretation Normal (test code = 76808-0) [facility] CenterHEPAT[facility]IS B SURFACE [id number] 06:14:00 Test Item Value Reference Range Interpretation Comments HEPATITIS B SURFACE ANTIBODY < mIU/mL <8.0 (BEAKER) (test code = 647) Tuyere Fitter ID - DBHepatitis B surface [id number] 06:13:00 Test Item Value Reference Range Interpretation Comments HBsAg Screen (test code Nonreactive Nonreactive = 5195-3) ELIANA (test code = ELIANA) Specimen is considered negative for HBsAg. Lab Interpretation (test Normal code = 07987-8) [facility] CenterAlpha fetoprotein (AFP), tumor [id number] 06:13:00 Test Item Value Reference Range Interpretation Comments Alpha-Fetoprotein (test code 2.1 ng/mL <10.0 = 1834-1) ELIANA (test code = ELIANA) Tuyere Fitter ID - DB Lab Interpretation (test Normal code = 01663-5) [facility] CenterHEPATITIS B SURFACE [id number] 06:13:00 Test Item Value Reference Range Interpretation Comments HEPATITIS B SURFACE ANTIGEN (2) Nonreactive Nonreactive (BEAKER) (test code = 2585) Specimen is considered negative for HBsAg.ALPHA FETOPROTEIN (AFP), TUMOR MARKER 2020-10-03 06:13:00 Test Item Value Reference Range Interpretation Comments ALPHA-FETOPROTEIN (BEAKER) (test 2.1 ng/mL <10.0 code = 1094) Tuyere Fitter ID - DBProthrombin time/[id number] 05:06:00 Test Item Value Reference Interpretation Comments Range Protime (test code = 14.4 See_Comment H [Autom ated 6962-2) message] The system which generated this result transmitted reference range : 11.9 - 14.2 seconds. The reference range was not used to interpret this result as normal/abnormal . INR (test code = 1.16 See_Comment [Automated 2211-6) message] The system which generated this result [...] valves. Lab Interpretation Abnormal (test code = 78428-5) [facility]/[id number] 05:06:00 Test Item Value Reference Range Interpretation Comments PROTIME (BEAKER) 14.4 seconds 11.9-14.2 H (test code = 759) INR (BEAKER) (test 1.16 See_Comment [Automat ed message] code = 370) The system [employer] generated this result transmitted ref erence range: [...] 8.8 See_Comment [A utomated message] The system [employer] generated this result transmitted ref erence range: 3.5 - 10 .5 K/L. The refe rence range was not u sed to interpret this result as normal/abnor mal. RBC (test code = 789-8) 2.56 See_Comment L [Au tomated message] The system [employer] generated this result transmitted ref erence range: 4.63 - 6 .08 M/L. The refe rence range was not u sed to interpret this result as normal/abnor mal. MCHC (test code = 786-4) 31.8 See_Comment L [A utomated message] The system [employer] generated this result transmitted ref erence range: [...] See_Comment [Aut omated message] 777-3) The system [employer] generated this result transmitted ref erence range: 150 - 45 0 K/CU MM. The referen ce range was not u sed to interpret this result as normal/abnor mal. MPV (test code = 10.2 fL 9.4-12.4 67874-2) nRBC (test code = 413) 0 See_Comment [Aut omated message] The system [employer] generated this result transmitted ref erence range: 0 - 0 /1 00 WBC. The refere nce range was not u sed to interpret this result as normal/abnor mal. Lab Interpretation (test Abnormal code = 44818-9) [facility] with platelet count + automated [id number] 04:58:00 Test Item Value Reference Range Interpretation Comments WBC (test code = 6690-2) 8.8 See_Comment [A utomated message] The system [employer] generated this result transmitted ref erence range: 3.5 - 10 .5 K/L. The refe rence range was not u sed to interpret this result as normal/abnor mal. RBC (test code = 789-8) 2.56 See_Comment L [Au tomated message] The system [employer] generated this result transmitted ref erence range: 4.63 - 6 .08 M/L. The refe rence range was not u sed to interpret this result as normal/abnor mal. MCHC (test code = 786-4) 31.8 See_Comment L [A utomated message] The system [employer] generated this result transmitted ref erence range: [...] See_Comment [Aut omated message] 777-3) The system [employer] generated this result transmitted ref erence range: 150 - 45 0 K/CU MM. The referen ce range was not u sed to interpret this result as normal/abnor mal. MPV (test code = 10.2 fL 9.4-12.4 13469-7) nRBC (test code = 413) 0 See_Comment [Aut omated message] The system [employer] generated this result transmitted ref erence range: [...] H [Aut omated message] 670) The system [employer] generated this result transmitted ref erence range: 1.78 - 5 .38 K/L. The refe rence range was not u sed to interpret this result as normal/abnor mal. # Lymphs (test code = 0.86 See_Comment L [Auto mated message] 414) The system [employer] generated this result transmitted ref erence range: 1.32 - 3 .57 K/L. The refe rence range was not u sed to interpret this result as normal/abnor mal. # Monos (test code = 0.72 See_Comment [Autom ated message] 415) The system [employer] generated this result transmitted ref erence range: 0.30 - 0 .82 K/L. The refe rence range was not u sed to interpret this result as normal/abnor mal. # Eos (test code = 416) 0.12 See_Comment [Au tomated message] The system [employer] generated this result transmitted ref erence range: 0.04 - 0 .54 K/L. The refe rence range was not u sed to interpret this result as normal/abnor mal. # Baso (test code = 417) 0.02 See_Comment [A utomated message] The system [employer] generated this result transmitted ref erence range: 0.01 - 0 .08 K/L. The refe rence range was not u sed to interpret this result as normal/abnor mal. Immature 1 % 0-1 Granulocytes-Relative (test code = 2801) Lab Interpretation (test Abnormal code = 39248-1) [facility] W/PLT COUNT & AUTO [id number] 04:58:00 Test Item Value Reference Range Interpretation [...] 0-0 (BEAKER) (test code = 413) POCT-GLUCOSE [id number] 21:32:00 Test Item Value Reference Range Interpretation Comments POC-GLUCOSE METER 128 mg/dL 70-110 H : [facility] ([facility]ER[facility] (test code = [place], 1538) [address]859: Tuyere Fitter/Techni min ID = [id number] for Marlyn mariano Lien Vancomycin level, [id number] 18:09:00 Test Item Value Reference Range Interpretation Comments Vancomycin Tr (test code 6.3 ug/mL 10-20 L = 4092-3) ELIANA (test code = ELIANA) Tuyere Fitter ID - DBIf vancomycin trough level > 20 mcg/mL, hold next vancomycin dose, and contact MD and pharmacist. Lab Interpretation (test Abnormal code = 59022-3) [facility] Center[facility]AN[facility] L[facility], [id number] 18:09:00 Test Item Value Reference Range Interpretation Comments VANCOMYCIN TROUGH (BEAKER) (test 6.3 ug/mL 10.0-20.0 L code = 522) Tuyere Fitter ID - DBIf vancomycin trough level > 20 mcg/mL, hold next vancomycin dose, and [facility] W/PLT COUNT & AUTO DIFFERENTIAL 2020-10-02 [...] PERCENT (BEAKER) (test code = 2801) POCT-GLUCOSE [id number] 17:36:00 Test Item Value Reference Range Interpretation Comments POC-GLUCOSE METER 124 mg/dL 70-110 H : TESTED A T [facility] 6720 (BEAKER) (test code = [place]ON M[place]ID [place], 1538) 338[address]: Tuyere Fitter/Techni min ID = [id number] for Jaswinder Jefferson Tissue [id number] 14:24:00 Test Item Value Reference Range Interpretation Comments Case Report (test code Surgical Pathology = 104) Report Case: [id number] Authorizing Provider: Sarkis Laboy, Collected: 10/01/2020 09:43 AM Ordering Location: [place] [address] ccu Received: 10/01/2020 01:48 PM Pathologist: Pa Peters MD Specimens: A) - Biopsy, Gastric, random biopsy B) - Gastric, gastric erythema biopsy DIAGNOSIS (test code = z1fhnHIxUFLlp2jrCIDdoD 3220) FuZzEwMzNcZnRuYmpcdWMx IHtccnRmMVxlcGljOTIwMl lepoTbVTQabKEjD1Zgydvq YWglCQ7zMI5qjIjlsOQjsO GkDTPbPlNai5llb218hAMb o8soIOKCauoriMw6dXcvJ1 8ac9G6TnubS58kiIBaXHhf bGFpblxmczIwIEEuIFNUT0 1WP3xuYKMBAvUZCEUZZzBN H7IVGAuKHB9VZ77UTLfzGk tEYFMKNLM9DMTkikj1MLXs SVASTnPKQXmsKAZUN0JRDW dJVEggTUlMRCBDSFJPTklD KNjLTXJTNDVHJLxMC8OWHY BMAtDZWzDoLt4EFHshWV3M BGFFTZ6WQDVZJCEPRAqDS6 aPVDDydug3BDXoUFVHLYnW BHvTPN0LA52IQKAAOXXOIJ 1REANdZ3qCW04MQlUMZqXO VElWRSBHQVNUUklUSVMgV0 bQVTUYW5TSMPPKS7OEJeaF IWueCMVpnSOwCC4rG7VJOQ hCVmBTBSKBEwmoH7ATEJ7v FkCCHCEEOiGiGp9DJIegBC BHZP5GFIZYLTvATP9BN3ZU PETRA7yxMIXnqQNxFR9oDo EEGYVZNgRqIy4BXFLLF4LA KGZCCDCTDtCGJYLGIC3OPB WtyFAmCUXesfJJEyPUIP7E QUNILCBFUllUSEVNQSwgRU 6VH4YFP9FATdIWVDFGB5EB OQGGH1FNBYDQRhscHZBirQ NrNK8dQ1nFAkGJClKAPQJJ R8WmX9xTZDXHBUsTEZLTLp 1QZEYbPF4ES0FPXnBaG3SR VFJJVElTIEFORCBWRVJZIE CVD6ZWJIPYUIbVFBBRTQEs ciAgICAgICAgICAgICAgLS EGCG4CJyPaSEUZPBIWPFFB R89UNDINII9WMWKJDDEAEX JUTFkgREVOVURFRCBXUElU NQAPAJFBEOKctlp2XVNtGS BXQVJUSElOIFNUQVJSWSBT VEFJTiBORUdBVElWRSBGT1 QvVQ7cZIsDN7TJBXdGB8Uw L0NYPW2YW82XTRLtlvp9OU TqQBBBVYmIYQqPCYNWS3Gs MU0KHMSKKN8BRYIXEWZAAP hYB2eUWZZFGKHPTXOHFFBb H7KwH0CSY9sWP42IJXYjwo 05REX7SwMxt7Z8TZN0KEMm JNKvt0qrDGPqhWLfMdHlVa NcZnRuYmpcdWMxXGRlZmYw c2zwv906vYRmp5xhISXkKf G0iZVzZXPzsWFkG915ILPy YOehs6iyy4IbNJLxbCLkf2 O2EGMLnynsxKv0vFskP36p i9T7JqsxL8ttBFBySXUxH4 XvBT8zKMKxZmr3IQI3HFV3 XQAmVSOzR1MqKW3pHYVzuD AaHDu5v1pxrHriDVZqOPW0 e3ntGYrbtfOhOZ1imh2qrB q3b4wwwhSmJGLnVMBbkNRC MAMqB4PfrFoaJt1qzJu7bD udTlsbLUU6Jzt6RE7kno34 hhi5kMfoKFIfkcqiNfR9FP tyTYQwpfddKWx6KVgeBOXi jDC5DIAnoZKtV9XfKTKxXU 8itqj6VQI2HAmbVXTfHbD8 NDBcaGVhZGVyeTcyMFxmb2 07OKX6DmJjWX3wC7Eyx8A2 yV3feNXiUXYssGZsRuOsBX Zsrw9clCDcODsps1XzIBB3 beG2iEAzkULhPYRbBoT8WN qwIY4why26LANpKKT4in6z bGNccGdicmRyaGVhZFxwZ2 QfJHXia518PGRlT3HnWNYl d7M0azQjRmMqOKDvkPS3es D4BOCpGT1xnibim9frCIuq TTwkCYUawmP2ckT8LPPtsX MvT5JmzH2hUIUgXA3izdrd z8voUNJ2MZrlDUGyDCB8Tr UgNSGks3Egnva6MuZih2Ul iRDsWQxeW61zn629ZEZkrp LjS4duuQXlxtiybVTpalfc OAlbimX6RWSpQYrejnfqLD HiJOxlF5wvVvLpNUOoxIcz GOhby7AbZBZkPWBpLpBzyO EvMPLjNjz8KRKjxHBkVHMd AmZbT4ekqbksDjXHWPNuy5 ogD9zwxOBAqWSaT0SaHDzw qiYjQYnfPZirZSEfQFI5YB 43RRgcWFNcmx15 CPT Code(s) (test code t5dqxWZoJEZjuYG3BmIzNE = 3357) Ixe4auq4ZpmWJeaJZhPGov dJOjxgOyhl17jZD5zW64WF 5jMZJmKvK3JEFpooR5Eqy8 PPJeUBFixZRsI718o3srm4 ukclLnmJA7gNljETMtBFCn YWluXGZzMjAgODgzMDUgWC VdLAF4ASNpLxIBHqomZKT4 CLINICAL HISTORY (test g9jmjISkLCJlfTM1LsGpLF code = 3356) Evo2aev3UkaAOnpNZtTJak mWBazeBcjh33bNZ9eA35TY 8yAUOiDpB0YQMmvnO8Gya9 MITfHWOzuDKzT627w3jzj1 ffkwUuzMQ1rYinPFQfICFo SGhbQQXmLyAttZRhKZ9wMN Bhcn0= SPECIMEN SOURCE (test d7emjLIeAMOapFS9OfSzMJ code = 3377) Xfx0hsv8VcbRDvuMVdIYle jSQedyYsgl46eAV1vN24GA 4pQBAgZfZ0HWTqplX6Wjj5 LCKgLDEdkNXfI793v9nfj8 fegiCtyCY5qHjtKUTwRLIy WUiwMKImAlUaLX2wQRfag5 ApkNGkrTanLQIGJeHcP5Bj iRXfK0rbFQG0 GROSS DESCRIPTION (test q3dqfERfOGXckFBhDoRpJQ code = 3366) MqWGYen8kmNGQalQKuOaGv MzNcZnRuYmpcdWMxXGRlZm Uwy0dip895dOWnn6egVHAf ZlE9tGTyTJTarLQyI987f9 zun6rdxaQzkUV9YPUqCCG9 CGozqdWjioZ4ITzrtJCaVh W1HSlqyrSvKQfzooCfklLm Btf6PQChP610LXW6eEstg5 lqPKU6ZDVoEERhNjYjXd6n wMLcN069WBDfLGKWDRMrzM m1TYYjthFpmeOpaEWRy915 N407q6yyOIPudgQvxNyDea rpp6piR937NWNlhOZeonTi LzRmDEXjpRKgeFA3FIHkNO 6bgymrUgTkYA4qidjqEmUn NF1jdgn8MkDrRO1esaacAa UiRRlkMZEjkqemZXZqs5Jo kczrVW5bQ5Gpa3L7sK9mtN UdKPCswLOiKnKxJUWodp8m pDQeGVctq4ZkAPN4hgK4eN VlnMWyFDFyWU66Kljgl7Cu EtxaFTY7IEUrakVma1Ffc2 brCsGrfgGfE7nyO2DsZSNy TAUmRNQpJqGpbeCrs1Oug2 ZcpFXbhUb6u2anSSBaDCMv fAkdw3yeQRK2TLJvA8N6vZ Avl0qeTUeuGYLfdKX5vovr MVcuQDWwvtV0mwedPLwtCN PdyYG1oenbCXjiZOEqRuL6 vhbqJCvyHQCjDNF3IEsuv5 28YSV0GFicHytiNNcqWHBk bmNvbnRccGduZGVjXHBsYW luXHBsYWluXGYwXGZzMjRc gTvmpEwsvU3eHxSoZkWsMR qoCR2yUZRfH9gkcCDxTNNl KPAyJ5atSfDzhF3myXecPR xmczIwIEEuICBSZWNlaXZl KKByzcEhs4IyJEvckvUzRI PsiSXnRNNfHNLbHJNvYK10 M8DubdNaXOkrQOWtRWXegM 0qPE58rLKzalTafaVuFmwc y3VxnBMpCgnvdTE2NcBwmk RbVSX7VA9giHkqzxO3tLZz pTCmAaXlP47qqwIiMO1kTE B1qhagYeX1rEN8rfElVnXl H79adY5wV0BwCGDcc6QbRI zpYM8krH0cJHlryUKhFKWd EMUjmEn4SPUtLVMdwtViz7 XufAw0zWZhYQmvZHYmuE0r vV7wSCAxZMOcaaxrYBIpGo 4pNCBhR9PpfbUbBXegCYVv qt1dfWyoIEydUrUyQJDxxF gyNYXufKnvctUtdvQuWW2b NAWeI3Abk2Oiz73xflYlNd SbMGGoEDAaP5LftRWnCpEx aXMgYSAwLjIgeCAwLjIgeC XlCrHnM77imCReIMUfrktx eQgea5RtCGXbJKlkYL38RF doaWNoIGlzIGZpbHRlcmVk DSInKLIdeLGtdWK8ORNkzE 2jkW33juIjghNLTK0gnYPn CYFevbEQlBcjozUZduj6WH xsZXMsIFBBLCBIVCAoQVND UClccGFyfQ== MICROSCOPIC DESCRIPTION k6ybpBTcOOVahWD5VrXmTZ (test code = 3371) Qrp9ame2KvnCMptXVqEKbr cSFrzaIiet58tSQ2wY79LW 3pSZMdMsL0TRLgykF8Wuq3 OMPsFOEgdHKoK113z3pob8 wronIvxYK5wNjzXGQpTSJy QJjfWEDgDvRvUCLeHe9hcP VkLlxwYXJ9 SPECIAL STUDIES (test q9jfuMXjPFWkb5gzTPDyiF code = 3376) FuZzEwMzNcZnRuYmpcdWMx KBvcczQoYFcvj8OhM9JyMo AwMFxhbnNpXGRlZmxhbmcx BQQkLPO6fiBhXCOkFUucVY PjPMtsEm2dnFWjuJstOkZw ZLBzm3uubgKCynjflDa9u9 naATKkRqY4vYIaZXcaQ5gq awItlJAnL7HlaWUtgLp8f9 ddTgBrLiR9pFQcRFzkU2vo bvHnfDJrIMRdXRk8mW89YA JreX5ymJJhORgybxRiQfB2 TZdjHPRjIcT4QYGkjMSsUA ZwT5wiGYJiUBboTNOhJWnd xJUcPVR9qXlmr3I8oZDzwN YsgKznFtAsOzFyUsSCw8Gx ZOg4qRepJ1ZuGDMmZfI2sI QgUGFyYWdyYXBoIEZvbnQ7 tLoficHuh14ujZDdBJLlXQ DcUtJkaStfJQHpWURKp7Oz pDdcKTB8cNn8dHuhTlsuDN J2Hjo6HU6xvt07etn2jWpw XGKtruetXjC3LLwaHSQjiv baJUc5EXimBHXoaOW5ISHg sTIzN3XiNKFzRB9zwak2LN Y3VRsaBQIzWnU8ASVboCOv TXJiiIkyFRutw905LBC8Jt HyKZ1kN7Elj0G8tU9siUTp HNDzvXQqGwQxSYTihs3kpA PaOOjmz2IqMKA4rkV6hXXa xETvKRVcDR55Cllyn2ZdNv bvs2XoA75vpIA2DLmyy4wq EH6jBuL9qtOhIWuzf1qkbS 4rGiO9UNvcZF3oVG2cZEGd cW2szcjaQUHlBkBvsjurCW WgeSuagvPsTw3kfVceVIR9 KMiiP5pvsG9nLeB3QQvxL9 oswO2rBLy0FAdgwSN3SAPj lN1vTD5yiiiqh3gmLHwmWE ojHVZsxdB3jxB2HLXvwSFs W6BvvJ6nUGPuKM6uhgppn8 lhCOU4TCziSWBuHHL5UdFw GXKce9Xbjap2AyRzh3IpdA OxDJvjC51qt649SPDeriUd S2oxdAHtrsnmvLJtpgnjHS wzbaM3RMCqDDKuUUirNBZg XGZzMjJcbGFuZzEwMzNcaG ljaFxmMVxkYmNoXGYxXGxv S2sqBoArK4GyQFYxPfExXS jpNDhlbLTlzNLosYN6gG7b OZ1aOJAshKWjU2IgTVKvjr KztDJlRNT9zFMigXFsYV1i GUtamJYzf6gjr3OiT7vruU zgnNE1MG9rPMBgXULsGHmb y2RdeI3oJvrbfHYdqhcxAC xmczIyXGxhbmcxMDMzXGhp T3tvHdKhIYLgrQrmLTwgj8 NoXGYxXGNmMlxmczIyXGx0 cmNoXHBhclxwYXJccGxhaW 1iLzJtFkBnDbrwXR7oRWWx K8oncWYtWSGgVUEcE8ztTj DwnY5eoTcvJBsnPxJsStAv IsJOs518ow5pKSSpfKIsqq MYgYVfvT1kWRmvIUjeFYln gBHiWGqif9irBUZnn7u5kF WiVEUdbdKqi2iySVykqkNf CJVfdKUsxSQvJYFpy41zMD ppoTwbdNshCPTcw1YdeOkm m6GiPoCkPKoai6FaK66geT JvbCBzbGlkZXMgcnVuIGFs w90iv1sbJZWnUsG2gYYgcG T0dIBxoBHaa3BzhCwuVNNj y6mhAZAely7xfwovpEAvc3 FbzL9atozwKPdlrQSbdyTd CXHuk9s3kZPdWJReZNLfTA txcPh7EWFke989ky8lavF6 vENtMSS6OOzsFYRfSOKyis UgZXZhbHVhdGVkXHBsYWlu XGYxXGZzMjJcbGZzEwz NcaGljaFxmMVxkYmNoXGYx PPvrG7ehIzNwC8DaDMYbZi XurSVzL2oszXXyDKSpIBbr XGYxXGZzMjJcbGFuZzEwMz NcaGljaFxmMVxkYmNoXGYx EDwhG8gtDrOaG0PuWQXkUp IgIFxwbGFpblxmMVxmczIy HOqxdsjdRFHkCGvaN1pdJc FlITTgzLkyBCemg7JaVUDr MMOqDdmpaqSzIXn2guNkTW BhclxwbGFpblxmMVxmczIy HVatbddhCHBjLNllV0ttVx ReLDRmtYfeAAdyq0ThVWOx XGNmMlxmczIyIEltbXVub2 pwm6UlX4uyhVeniJB6BHMc P9pwmXLzvRK8EDK1lC7qZQ jtslInTUJzi4EdWDJsDYKk UiD1qB4eBOO2BcQObTtiMU BsYWluXGYxXGZzMjJcbGFu ZzEwMzNcaGljaFxmMVxkYm KoGRPiAQufJ1dhCpKrO5Aj QNEgSkPdnBzsIVrlJHf2Zw xwbGFpblxmMVxmczIyXGxh esysVVDaFTejB5ovZpJsJG JccMukWPaex7HqWWMhQPEa MlxmczIyIHMgTWVkaWNhbC PXYN89ERStZJVziKrszA6u qIVIPZVtkdP9r7X4MNdlJN KaWBn3OXrvhmAaOBSemD8r OSKhXP7oINa0iqSgBQBwh1 GiTU7eEYJfzSTyQOV3FDGp d9WfD6Bva9VeFLYeYQHbsd 2nqlEeJoPAgIBsBZZimb07 RAUcNV8gU1izBMIkFWCicr IdzCZco9RzRPCvdMS7vNFv DP8OOkFCk09gHPGoORGLee NtYZDxvUnudAG4byS4gT8k LiBUaGUgRkRBIGhhcyBkZX Xpwu2jatLnXQTaSYJgr5Vs aIPjyRKlfmUoB7Xlc1EcHG Sloc29YXnvfVWnjy89AQ0y T7Rnb8PufH7uIPauIZLam9 XknJAftAQwCOXoe7DrB5jm tbwjUAignSEtuP0fEGHgBC f0EIRsw8EdHRMbw1WwKlYg fbOxUIZhQGPyPKHqbP20JV S3cKrdjXtqevZlKK7iHCSx djAuDOHhISEhuM7gDOoqnc UvDQVwkdP9a7I2BUbjODSk elOoGvefKXV9kyJwsbL9sV ApX0jfjijrZZcdVADtw4Eq mW1ajSQZpSIzt9YhdATwzL MUoSNcFJ9aqmMrKH5sOWT1 ODggKENMSUEtODgpIGFzIH K8FQbmFugyWPS5tjCaNBYe t3WfTTisO2swJ81vvWkiiC z3nUTrbAghpQJwmEPbZMAb nsF8k3W2FUVoz2OxnxqzZF BsYWluXGYyXGZzMjJcbGFu ZzEwMzNcaGljaFxmMlxkYm AuLXHvSFfcT4inFeSfMxQj LlrvQQP7sG== Gross assessment was [facility] performed at ([facility], = 2777) Department of Pathology, [address] [place] [address], Technical component was [facility] performed at ([facility], = 2778) Department of Pathology, [address] [place] [address], Professional component [facility] was performed at ([facility], code = 2779) Department of Pathology, [address] [place] [address], [facility] [id number] 14:24:00Surgical Pathology Report Case: [id number] Authorizing Provider: Sarkis Laboy, Collected: 10/01/2020 09:43 AM OrderingLocation: [place] [address] ccu Received: 10/01/2020 01:48 PM Pathologist: Pa [...] OR CARCINOMA Signing Pathologist Direct Phone Line: [phone] signed by Pa Peters MD on 10/02/2020 at 2:24 [id number] X 2, [id number] P6dyqoynP. GastricB. GastricA. Received in formalin labeled the [...] is filtered and submitted in toto in B1.XIMENA Bhakta, HT (ASCP)Performed.The interpretation of this case included the use of immunohistochemistry or special stains.Control Slides Examined: In-house known positive controls were evaluated along with the test tissue. These control slides run alongside of the patients sample show appropriate staining. Internal positive and negative controls when available are evaluated Immunohistochemistry technical testing was performed at [facility], Pathology Laboratory where it was developed and [...] qualified to perform high complexity clinical laboratory testing.[facility], Department of Pathology, [address] [place] [address], [facility], [address] [place] [address], [facility], Department of Pathology, [address] [place] [address], TKLL-GLUCOSE [id number] 11:33:00 Test Item Value Reference Range Interpretation Comments POC-GLUCOSE METER 124 mg/dL 70-110 H : TESTED A T [facility] 6720 (TierPM) (test code = [facility], 1538) 40[address]: Tuyere Fitter/Techni min ID = [id number] for Jaswinder Jefferson POCT-GLUCOSE [id number] 08:15:00 Test Item Value Reference Range Interpretation Comments POC-GLUCOSE METER 106 mg/dL 70-110 : TESTED A T [facility] 6720 (TierPM) (test code = [facility], 1538) 84954: Tuyere Fitter/Techni min ID = [id number] for Jaswinder Jefferson Comprehensive metabolic [id number] 05:17:00 Test Item Value Reference Range Interpretation Comments Protein, Total (test 6.1 See_Comment [Autom ated code = 2885-2) message] The system which generated this result transmit altagracia reference range : 6.0 - 8.3 gm/dL . The reference range was not u sed to interpret th is result as normal/abnormal . Albumin (test code = 2.6 g/dL 3.5-5 L 09823-8) Alkaline Phosphatase 85 U/L 40-150 (test code [...] (test code = 7.7 mg/dL 8.4-10.2 L 57667-3) AST (test code = 17 U/L 5-34 1920-8) ALT (test code = 9 U/L 6-55 1742-6) EGFR (test code = 35 mL/min/1.73 [place] [address]-7) NOT ACCURATE CREATININE CLEARANCE IN PREDICTING GLOMERULAR FILTRATION RATE . ESTIMATED GFR I S NOT APPLICABLE FOR DIALYSIS PATIEN TS. ELIANA (test code = ELIANA) Tuyere Fitter ID - EDASI Lab Interpretation Abnormal (test code = 15679-2) [facility] [id number] 05:17:00 Test Item Value Reference Range Interpretation [...] S NOT APPLICABLE FOR DIALYSIS PATIEN TS. Tuyere Fitter ID - EDASICBC W/PLT COUNT & AUTO [id number] 04:32:00 Test Item Value Reference Range Interpretation [...] PERCENT (BEAKER) (test code = 2801) POCT-GLUCOSE [id number] 21:36:00 Test Item Value Reference Range Interpretation Comments POC-GLUCOSE METER 146 mg/dL 70-110 H : TESTED A T [facility] 6720 (BEAKER) (test code = DEVON SMITH, 1538) [address]: Tuyere Fitter/Techni min ID = [id number] for Johana Vasquez Hemoglobin [id number] 15:28:00 Test Item Value Reference Range Interpretation Comments Hemoglobin A1C (test code = 4548-4) 5.6 % 4.3-6.1 Lab Interpretation (test code = Normal 23988-2) [facility]HEMO[facility] [id number] 15:28:00 Test Item Value Reference Range Interpretation Comments HEMOGLOBIN A1C (BEAKER) (test code = 5.6 % 4.3-6.1 368) CBC W/PLT COUNT & AUTO [id number] 12:44:00 Test Item Value Reference Range Interpretation [...] PERCENT (BEAKER) (test code = 2801) POCT-GLUCOSE [id number] 11:11:00 Test Item Value Reference Range Interpretation Comments POC-GLUCOSE METER 125 mg/dL 70-110 H : [facility] (test code = [facility] [employer] [facility], 1538) 23427: Tuyere Fitter/Techni min ID = [id number] for BE LL, BEAULA Vancomycin level, [id number] 10:39:00 Test Item Value Reference Range Interpretation Comments Vancomycin Rm (test 4.8 ug/mL code = 16222-1) ELIANA (test code = Reference Range: No ELIANA) NormalsOperator ID - COLBY Rodriguez [facility] CenterVANCOMYCIN LEVEL, [id number] 10:39:00 Test Item Value Reference Range Interpretation Comments VANCOMYCIN RANDOM (BEAKER) (test 4.8 ug/mL code = 523) Reference Range: No NormalsOperator ID - COLBY CPOCT-GLUCOSE [id number] 08:38:00 Test Item Value Reference Range Interpretation Comments POC-GLUCOSE METER 119 mg/dL 70-110 H : [facility] (test code = [facility] [employer] [facility], 1538) 88951: Tuyere Fitter/Techni min ID = [id number] for BE LL, BEAULA SARS-CoV2/RT-PCR (Asymptomatic ONLY)2020-10-01 08:13:00 Test Item Value Reference Range Interpretation Comments SARS-COV2/RT-PCR Negative Not Detected, (test code = Negative, See 63[address]-7) external report for linked test SARS-COV-2 [facility] (test code = 34970-4) ELIANA (test code = Negative result for [...] of the Act. Fact Sheet for Healthcare Providers:https://www.[employer]/sites/default/f dorys/product/documents/F act_Sheet_HC_Providers_L pun_HGVE-OiZ-1.pdf Fact Sheet for Healthcare Patients:https://www.[employer]/sites/default/fi les/product/documents/Fa ct_Sheet_Patients_Lyra_S ARS-CoV-2.pdf Performing Laboratory:[facility] [place] [address] [facility] ([facility])2020-10-01 08:13:00 Test Item Value Reference Range Interpretation Comments SARS-COV2/RT-PCR (test Negative Not Detected, Negative, code = 5565127) See external report for linked test SARS-COV-[address] [facility] (test code = 4613777) Negative result for this test determines that [...] 564(g) of the Act.Fact Sheet for Healthcare Providers:https://www.[employer].com/sites/default/files/product/documents/Fact_Shee p_ME_Bhxsisbgw_Zanb_KUKA-GtQ-4.pdfFact Sheet for Healthcare Patients:https://www.[employer].com/sites/default/files/product/ documents/Vlxz_Stclc_Fneqrcjw_Mzcj_YIQE-QyX-1.pdfPerforming Laboratory:[facility], [place] [id number] 06:20:00 Test Item Value Reference Range Interpretation Comments Ferritin (test code = 61.09 ng/mL 5-344 2276-4) ELIANA (test code = ELIANA) Tuyere Fitter ID - ASHLEIGH L Lab Interpretation (test Normal code = 07918-6) [facility] CenterVitamin B12 and [id number] 06:20:00 Test Item Value Reference Range Interpretation Comments Vitamin B12 (test 267 pg/mL 213-816 code = 2132-9) Folate (test code = 11.30 ng/mL See_Comment [Automa altagracia 2284-8) message] The system which generated this result transmit altagracia reference range : >=7.00. The reference range was not used to interpret this result as normal/abnormal . ELIANA (test code = ELIANA) Tuyere Fitter ID - ASHLEIGH L Lab Interpretation Normal (test code = 64400-3) [facility] CenterFERRITIN2021-03-19 06:20:00 Test Item Value Reference Range Interpretation Comments FERRITIN (BEAKER) (test code = 61.09 ng/mL 5.00-275.00 361) Tuyere Fitter ID - ASHLEIGH LVITAMIN B12 AND [id number] 06:20:00 Test Item Value Reference Range Interpretation Comments VITAMIN B12 267 pg/mL 213-816 (BEAKER) (test code = 774) FOLATE (BEAKER) 11.30 ng/mL See_Comment [Automated message] (test code = 362) The system which generated this result transmitted ref erence range: >=7.00. The reference range was not used to interpr et this result as normal/abnormal . Tuyere Fitter ID - ASHLEIGH George, TIBC, % sat. (without ferritin)2020-10-01 06:04:00 Test Item Value Reference Range Interpretation Comments Iron (test code = 2498-4) 17.0 ug/dL 40-160 L TIBC (test code = 2500-7) 323 ug/dL 250-450 Iron % Saturation (test 5 % 20-55 L code = 2502-3) ELIANA (test code = ELIANA) Tuyere Fitter ID - ASHLEIGH L Lab Interpretation (test Abnormal code = 31862-7) [facility] CenterIRON, TIBC, % SAT. (WITHOUT FERRITIN)2020-10-01 06:04:00 Test Item Value Reference Range Interpretation Comments IRON (BEAKER) (test code = 547) 17.0 ug/dL 40.0-160.0 L TOTAL IRON BINDING CAPACITY 323 ug/dL 250-450 (BEAKER) (test code = 769) IRON % SATURATION (2) (BEAKER) 5 % 20-55 L (test code = 2590) Tuyere Fitter ID - PIAYA LPOCT-GLUCOSE [id number] 05:23:00 Test Item Value Reference Range Interpretation Comments POC-GLUCOSE METER 116 mg/dL 70-110 H : TESTED A T [facility] (BEAKER) (test code [facility], = 1538) 66367: Tuyere Fitter/Techni min ID = [id number] for JUNIE ALICIA CBC W/PLT COUNT & AUTO [id number] 03:26:00 Test Item Value Reference Range Interpretation [...] (BEAKER) (test code = 2801) COMPREHENSIVE METABOLIC [id number] 03:22:00 Test Item Value Reference Range Interpretation [...] S NOT APPLICABLE FOR DIALYSIS PATIEN TS. Tuyere Fitter ID - DBCBC W/PLT COUNT & AUTO [id number] 20:14:00 Test Item Value Reference Range Interpretation [...] PERCENT (BEAKER) (test code = 2801) POCT-GLUCOSE [id number] 20:12:00 Test Item Value Reference Range Interpretation Comments POC-GLUCOSE METER 134 mg/dL 70-110 H : TESTED A T [facility] (BEAKER) (test [facility] = [facility]) 760[address]: Tuyere Fitter/Techni min ID = [id number] for CORRY CASAS JUNIE CBC (HEMOGRAM ONLY)2020-09-30 [...] 0-0 (BEAKER) (test code = 413) POCT-GLUCOSE [id number] 14:32:00 Test Item Value Reference Range Interpretation Comments POC-GLUCOSE METER 106 mg/dL 70-110 : TESTED A T [facility] (WENDI) (test code = DEVON MADRID ME, 1538) 36940: Tuyere Fitter/Techni min ID = [id number] for CHUY SWANN HEMOGLOBIN [id number] 11:57:00 Test Item Value Reference Range Interpretation Comments HEMOGLOBIN A1C (WENDI) (test code = 5.6 % 4.3-6.1 368) U/S, ABDOMINAL, [id number] 11:53:00Abdomen limited area? Add comment if clarification is needed.->Right upper quadrantReason for exam:->liver cirrhosis; ETOH abuse [facility] 1950 Sex: MFINAL REPORT [...] MDReport Verified Date/Time: 09/30/2020 11:53:08 US abdomen [id number] 11:53:00Interface, External Ris In - 09/30/2020 11:55 [...] signedby: CAITY HERNADEZ MD on 09/30/2020 11:53 [facility] Reflex [facility] Culture 2020-09-30 10:53:00 Test Item Value Reference Range Interpretation Comments Color, UA (test code Light Yellow = 5778-6) Clarity, UA (test Clear code = 5767-9) Specific [place], UA 1.014 1.001-1.035 (test code = 5811-5) pH, UA (test code = 6.0 5.0-8.0 5803-2) Protein, UA (test 200 mg/dL Negative A code = 96262-7) Glucose, UA (test 50 mg/dL Negative A code = 365) Ketones, UA (test Negative Negative code = 2514-8) Bilirubin, UA (test Negative Negative code = 90827-5) Blood, UA (test code Small Negative A = 17180-1) Nitrite, UA (test Negative Negative code = 5802-4) Leukocytes, UA (test Negative Negative code = 5799-2) Urobilinogen, UA 0.2 mg/dL 0.2-1 (test code = 17848-2) RBC, UA (test code = 1 See_Comment [Autom ated 68401-8) message] The system which generated this result [...] . Bacteria, UA (test Few code = 13848-0) Mucus (test code = Few 8247-9) Squam Epithel, UA 1 See_Comment [Automate d (test code = 14146-6) messag e] The system which generated this result transmit altagracia reference range : /HPF. The reference range was not used to interpret this result as normal/abnormal . Hyaline Casts, UA 6 See_Comment [Automate d (test code = 26394-4) duarte e] The system which generated this result transmit altagracia reference range : /LPF. The reference range was not used to interpret this result as normal/abnormal . Specimen Source (test code = 2795) ELIANA (test code = ELIANA) Tuyere Fitter ID - [auto]Tuyere Fitter ID - tech Lab Interpretation Abnormal (test code = 38864-5) [facility] [id number] 10:53:00 Test Item Value Reference Range Interpretation [...] = 514) SOURCE(BEAKER) (test code = 2795) Tuyere Fitter ID - [auto]Tuyere Fitter ID - techLactic acid, [id number] 10:00:00 Test Item Value Reference Range Interpretation Comments Lactate, Venous (test code 1.08 mmol/L 0.5-2.2 = 2872) ELIANA (test code = ELIANA) Tuyere Fitter ID Eulalio SOTELO L Lab Interpretation (test Normal code = 66008-5) [facility] CenterLACT[facility] ACID, [id number] 10:00:00 Test Item Value Reference Range Interpretation Comments LACTATE BLOOD VENOUS (2) (BEAKER) 1.08 mmol/L 0.50-2.20 (test code = 2872) Tuyere Fitter ID Eulalio SOTELO LCBC W/PLT COUNT & AUTO [id number] 09:53:00 Test Item Value Reference Range Interpretation [...] = 2801) RAD, CHEST, 1 VIEW, NON [id number] 09:06:00Reason for exam:->? sob [facility] : 1950 Sex: MFINAL REPORT INDICATION: ? sob COMPARISON: None TECHNIQUE: Single fro ntal view of the chest. FINDINGS: Lungs and pleura: Clear lungs. No effusion.Heart and mediastinum: Normal heart size. Unremarkable mediastinal contours.Osseous structures: No acute abnormality.Other: None. IMPRESSION: No acute intrathoracic abnormality. Signed: Nahed Cleary MDReport Verified Date/ Time: 09/30/2020 09:06:18 Reading Location: [facility] Radiology Reading Room XR chest 1 view portable / [id number] 09:06:00Interface, External Ris In - 09/30/2020 9:24 AM CDTFINAL REPORT INDICATION: ? sob COMPARISON: None TECHNIQUE: Single frontal view of the chest. FINDINGS: Lungs and pleura: Clearlungs. No effusion.Heart and mediastinum: Normal heart size. Unremarkable mediastinal contours.Osseous structures: No acute abnormality.Other: None. IMPRESSION: No acute intrathoracic abnormality. Sign ed: Nahed Clearyepjohn Verified Date/Time: 09/30/2020 09:06:18 Reading Location: [facility] Radiology Reading Room [facility] COMPREHENSIVE METABOLIC [id number] 07:47:00 Test Item Value Reference Range Interpretation [...] S NOT APPLICABLE FOR DIALYSIS PATIEN TS. Tuyere Fitter ID - [id number] 07:07:00 Test Item Value Reference Range Interpretation Comments PTT (test code = 04026-0) 25.1 See_Comment [ Automated message] The system [employer] generated this result transmitted ref erence range: 22.5 - 3 6.0 seconds. The re ference range was not u sed to interpret this result as normal/abnor mal. Lab Interpretation (test Normal code = 70769-2) [facility] CenterPROTHROMBIN TIME/[id number] 07:07:00 Test Item Value Reference Range Interpretation Comments PROTIME (WENDI) 14.2 seconds 11.9-14.2 (test code = 759) INR ([facility]) (test 1.13 See_Comment [Automat ed message] code = 370) The system [employer] generated this result transmitted ref erence range: <=5.90. The reference range was not used to int erpret this result as normal/abnormal . Effective 12/11/2018: PT Reference Range ChangeNew: 11.9-14.2 Previous: 11.7- 14.7RECOMMENDED COUMADIN/WARFARIN INR THERAPY RANGESSTANDARD DOSE: 2.0-3.0 Includes: PROPHYLAXIS for venous thrombosis, systemic embolization; TREATMENT for venous thrombosis and/or pulmonary embolus.HIGH RISK: Target INR is2.5-3.5 for patients wiht mechanical heart valves.[id number] 07:07:00 Test Item Value Reference Range Interpretation Comments PARTIAL THROMBOPLASTIN TIME 25.1 seconds 22.5-36.0 (NELAKER) (test code = 760) POCT-GLUCOSE [id number] 06:39:00 Test Item Value Reference Range Interpretation Comments POC-GLUCOSE METER 150 mg/dL 70-110 H : TESTED A T [facility] (WENDI) (test code [facility], = 1538) 72815: Tuyere Fitter/Techni min ID = [id number] for JUNIE ALICIA [id number] 00:00:00Ordered by an unspecified provider.[facility] ([facility])2020-01-26 13:29:00 Test Item Value Reference Range Interpretation Comments SARS-COV2/RT-PCR (test code = Negative Not Detected, Negative 7825625) SARS-COV-[address] [facility] (test code = 5576701) Negative result for this test determines that [...] 564(g) of the Act.Fact Sheet for Healthcare Providers:https://www.[employer].com/sites/default/files/product/documents/Fact_Shee h_TF_Aitelhjwl_Iyqj_QLYY-NtD-4.pdfFact Sheet for Healthcare Patients:https://www.[employer].com/sites/default/files/product/ documents/Cpen_Nsxzx_Webxhjdt_Hrhu_HQRD-XeA-8.pdfPerforming Laboratory:[place] [id number] [place] [address]
[2020-11-06] MEDS ORDERED: PANTOPRAZOLE 40 MG INJ ONE ×2 (18:30→21:34)
[2020-11-06] MEDS ORDERED: ONDANSETRON 4 MG/2 ML VIAL ONE (18:30)
[2020-11-06 18:46] LABS: Absolute Lymphocytes (CBC) 1.1 K/uL (0.7-4.9); Basophils % 0.3 % (0-1.3); Lymphocytes % 9.1 % (15.3-44.8); MPV 9.4 fL (7.6-11.3); RBC Red Blood Cell Count 2.59 M/uL (4.33-5.43)
--- NOTE | 2020-11-06 18:53 | RAD REPORT ---
EXAM DESCRIPTION: RAD - Chest Single View - 11/06/2020 6:44 pm CLINICAL HISTORY: vomiting Chest pain. COMPARISON: Chest Single View dated 11/02/2020; Chest Single View dated 09/30/2020; Chest Single View dated 02/03/2020; Chest Single View dated 01/28/2020 FINDINGS: Portable technique limits examination quality. Moderate bilateral pulmonary opacities are present which may represent pulmonary edema or pneumonia. The heart is mildly enlarged in size. Small right pleural effusion.Right PICC line is in place with i ts tip in the region of the right atrium.
[2020-11-06 18:54] LABS: Protime INR 1.09
[2020-11-06 18:56] LABS: Blood Gas Oxyhemoglobin 83.5 % (94-97); Blood O2 Saturation 86.3 % (92-98.5)
[2020-11-06 19:05] LABS: Albumin 2.5 g/dL (3.4-5.0); Bilirubin Direct 0.3 mg/dL (0-0.2); Bilirubin Total 0.6 mg/dL (0.2-1.0); Magnesium 2.4 mg/dL (1.8-2.4); Potassium 5.4 mmol/L (3.5-5.1); Protein, Total 7.3 g/dL (6.4-8.2)
[2020-11-06 19:19] LABS: Troponin I 1.13 ng/mL (0.0-0.045)
[2020-11-06 19:24] LABS: SARS-COV-2 RT PCR NEGATIVE (NEGATIVE)
[2020-11-06] MEDS ORDERED: ALBUTEROL 2.5 MG/3 ML NEB SOL ONE (20:01)
[2020-11-06] MEDS ORDERED: Levofloxacin500mg IV 500 MG/100 ML BAG IV ONE (20:02)
[2020-11-06] MEDS ORDERED: INSULIN -REGULAR HUMAN 50 UNIT/0.5 ML ML ONE (20:02)
[2020-11-06] MEDS ORDERED: D50W 25 GM/50 ML SYRINGE IV ONE (20:03)
[2020-11-06] MEDS ORDERED: CEFEPIME/SWI 1gm 10 ML ONE (20:03)
--- NOTE | 2020-11-06 20:49 | RAD REPORT ---
EXAM DESCRIPTION: CT - Chest Abd Pelvis Wo Con - 11/06/2020 8:09 pm CLINICAL HISTORY: Chest and abdomen pain. nausea/vomiting;SOB COMPARISON: Chest Single View dated 11/06/2020; Chest Single View dated 11/02/2020 TECHNIQUE: A limited noncontrast study was performed. All CT scans are performed using dose optimization technique as appropriate and may include automated exposure control or mA/KV adjustment according to patient size. FINDINGS: Extensive bilateral patchy alveolar lung opacities are present.Small bilateral pleural eff usions are noted.Prominent mediastinal lymph nodes seen, largest in the pretracheal space measuring 1 7 mm. A right PICC line is in place with its tip in the right atrium. Subtle nodularity affects the liver suspicious for mild cirrhosis. Spleen, pancreas, adrenal glands a nd kidneys are within normal limits. No bowel obstruction, free air, free fluid or abscess. Normal appendix. Moderate retained stool is se en in the colon. No pathologic lymphadenopathy in the abdomen or pelvis. There is a fracture involving the medial aspect of the left clavicle, age indeterminate. IMPRESSION: Moderate bilateral lung opacities are present with small bilateral pleural effusions.The findings may indicate pneumonia or pulmonary edema. Moderate fecal retention is seen particularly in the rectum. Early/mild findings of liver cirrhosis. Fracture medial aspect the left clavicle, age undetermined. Correlation with point tenderness may be value.
--- NOTE | 2020-11-06 21:16 | ER ---
Nurse's Notes [facility] Name: Amaury Matamoros Age: 69 yrs Sex: Male : 1950 Arrival Date: 11/06/2020 Time: 15:11 Bed 7 Private MD: Alfonzo Mera Diagnosis: Unspecified combined systolic (congestive) and diastolic (congestive) heart failure;Non-ST elevation (NSTEMI) myocardial infarction;Unspecified kidney failure;Pneumonia due to other specified bacteria;Pulmonary edema Presentation: 11/06 15:40 Chief complaint: Patient states: States his RUE PICC line hurts for over 1 week. States ll1 he is on antibiotics at home right now for his stump infection. Reports decreased hearing, MORALEZ, and loosing voice for 3-4 day with fatigue. No fever. Coronavirus screen: Client denies travel out of the [place] in the last 14 days. At this time, the client does not indicate any symptoms associated with coronavirus-19. Ebola Screen: Patient denies travel to an Ebola-affected area in the 21 days before illness onset. Initial Sepsis Screen: Does the patient meet any 2 criteria? No. Patient's initial sepsis screen is negative. Does the patient have a suspected source of infection? Yes: Bone or joint infection. Risk Assessment: Do you want to hurt yourself or someone else? Patient reports no desire to harm self or others. Onset of symptoms was October 31, 2020. 15:40 Method Of Arrival: Wheelchair ll1 15:40 Acuity: ALEJANDRA 3 ll1 18:32 Acuity: ALEJANDRA 2 hb Historical: - Allergies: 15:43 PENICILLINS; ll1 - PMHx: 15:43 Cellulitis; Diabetes - NIDDM; Hypertension; ll1 - PSHx: 15:43 BKA; ll1 - Immunization history:: Flu vaccine is up to date. - Social history:: Smoking status: Patient denies any tobacco usage or history of. Screenin:37 Abuse screen: Denies threats or abuse. Denies injuries from another. Nutritional hb screening: No deficits noted. Tuberculosis screening: No symptoms or risk factors identified. Fall Risk Total Monahan Fall Scale indicates Low Risk Score (25-44 pts). Fall prevention measures have been instituted. Side Rails Up X 2 Frequent Obs/Assesments occuring As available Patient and Family Educated on Fall Prevention Program and strategies. Assessment: 18:00 General: Appears in no apparent distress. ill, Behavior is calm, cooperative. Pain: hb Pain currently is 5 out of 10 on a pain scale. Neuro: Level of Consciousness is awake, alert, obeys commands, Oriented to person, place, time, situation. Cardiovascular: Patient's skin is warm and dry. Respiratory: Respiratory effort is labored, Respiratory pattern is tachypnea. GI: Reports lower abdominal pain, upper abdominal pain. : No signs and/or symptoms were reported regarding the genitourinary system. EENT: Reports blurred vision decreased hearing difficulty swallowing. Derm: Skin temperature is warm bruising noted to abdomen and chest. Musculoskeletal: No signs and/or symptoms reported regarding the musculoskeletal system. 18:26 Reassessment: SpO2 55% while talking, improved to 85% on 5LNC. PA Page notified, RT hb paged for ABG. 18:35 Reassessment: RT at bedside for ABG. hb 18:46 Reassessment: RT at bedside for HFNC \T\ 10L. hb 19:15 Reassessment: Patient appears in no apparent distress at this time. Patient and/or wh family updated on plan of care and expected duration. Pain level reassessed. Patient is alert, oriented x 3, equal unlabored respirations, skin warm/dry/pink. 19:49 Reassessment: [id number] margarito ( daughter). mg2 21:15 Reassessment: Patient appears in no apparent distress at this time. Patient and/or wh family updated on plan of care and expected duration. Pain level reassessed. Patient is alert, oriented x 3, equal unlabored respirations, skin warm/dry/pink. Vital Signs: 15:40 BP 111 / 72; Pulse 87; Resp 17; Temp 97.6; Pulse Ox 94% ; Height 5 ft. 3 in. (160.02 ll1 cm); Pain 10/10; 18:26 Pulse Ox 55% on R/A; hb 18:37 BP 147 / 84; Pulse 92; Resp 32; Pulse Ox 86% on 5 lpm NC; sv 19:11 BP 147 / 84; Pulse 82; Resp 16; Pulse Ox 100% 10% ; hb 21:30 BP 121 / 71; Pulse 86; Resp 18; Pulse Ox 96% on 10 lpm NC; 19:11 HFNC hb ED Course: 15:11 Patient arrived in ED. mr 15:12 Alfonzo Mrea DO is Private Physician. mr 15:42 Triage completed. ll1 15:43 Arm band placed on. ll1 17:54 Wally Espinosa PA is PHCP. cp 17:54 Wally Miles MD is Attending Physician. cp 18:14 Assisted to bedside commode. Cleaned of incontinence. mt 18:34 CBC with Diff Sent. sv 18:34 Basic Metabolic Panel Sent. sv 18:37 Patient has correct armband on for positive identification. Bed in low position. Call hb light in reach. 18:37 Accessed PICC line. using per hospital protocol. Clean \T\ dry. Good blood return. hb Flushes easily. 18:43 XRAY Chest (1 view) In Process Unspecified. EDMS 19:00 Micaela Zuñiga RN is Primary Nurse. hb 20:09 CT Chest Abdomen Pelvis W/O Contrast In Process Unspecified. EDMS 20:15 Primary Nurse role handed off by Micaela Zuñiga, COURTNEY tt3 21:13 Quincy Wilkinson is Hospitalizing Provider. cp 22:00 No provider procedures requiring assistance completed. Patient admitted, IV remains in place. Administered Medications: 18:20 Drug: ProTONIX (pantoprazole) 40 mg Route: IVP; Site: PICC; 11/07 01:22 Follow up: Response: No adverse reaction 11/06 18:33 Drug: Zofran (Ondansetron) 4 mg Route: IVP; Site: PICC; 11/07 01:22 Follow up: Response: No adverse reaction 11/06 19:56 Drug: Insulin Regular Human 10 units {Co-Signature: mg2 (Eber Peck RN).} Route: IVP; Site: left upper arm; 11/07 01:21 Follow up: Response: No adverse reaction 11/06 19:58 Drug: Cefepime 1 grams Route: IVPB; Rate: 200 ml/hr; Infused Over: 30 mins; Site: left upper arm; 11/07 01:21 Follow up: Response: No adverse reaction; IV Status: Completed infusion 11/06 20:00 Drug: Albuterol 2.5 mg Route: Inhalation; 20:02 Drug: D50W 25 ml Route: IVP; Site: left upper arm; 11/07 01:21 Follow up: Response: No adverse reaction 11/06 20:04 Drug: LevaQUIN (levofloxacin) 500 mg Volume: 100 ml; Route: IVPB; Infused Over: 60 wh mins; Site: left upper arm; 11/07 01:22 Follow up: Response: No adverse reaction; IV Status: Completed infusion 11/06 20:30 Drug: Albuterol 2.5 mg Route: Inhalation; 21:20 Drug: ProTONIX (pantoprazole) 8 mg/hr Route: IV; Rate: 25 ml/hr; Site: PICC; [facility] 11/07 01:21 Follow up: Response: No adverse reaction; IV Status: Infusion continued upon admission 11/06 21:21 Drug: Lasix (furosemide) 40 mg Route: IVP; Site: PICC; [facility] 11/07 01:21 Follow up: Response: No adverse reaction Outcome: 11/06 21:15 Decision to Hospitalize by Provider. cp 22:00 Admitted to ER Hold. Please see [facility] for further documentation. 22:00 Condition: stable 22:00 Instructed on the need for admit. 11/07 08:58 Patient left the ED. Signatures: Dispatcher [employer] EDMS Kasia Shukla RN RN Mare Burnett Corey, PA PA cp Baxter, Heather, RN RN Jonel [facility] Ike Montoya RN RN Eber Peck RN RN mg2 Bairon Rivera RN RN [facility] Silvestre Al 3 Eber Peck RN mg2 Corrections: (The following items were deleted from the chart) 11/06 15:43 15:40 BP 111 / 72; Pulse 87bpm; Resp 17bpm; Temp 97.6F; Height 5 ft. 3 in.; Pain 10/10; ll1 ll1 19:04 18:35 General: Appears in no apparent distress. ill, Behavior is calm, cooperative, [facility] 19:04 18:35 Pain: Pain currently is 5 out of 10 on a pain scale. hb 19:04 18:35 Neuro: Level of Consciousness is awake, alert, obeys commands, Oriented to person, place, time, situation, hb 19:04 18:35 Cardiovascular: Patient's skin is warm and dry. hb hb 19:04 18:35 Respiratory: Respiratory effort is labored, Respiratory pattern is tachypnea hb hb 19:04 18:35 GI: Reports lower abdominal pain, upper abdominal pain, hb hb 19:04 18:35 : No signs and/or symptoms were reported regarding the genitourinary system. hb hb 19:04 18:35 EENT: Reports blurred vision decreased hearing difficulty swallowing hb hb 19:04 18:35 Derm: Skin temperature is warm bruising noted to abdomen and chest hb hb 19:04 18:35 Musculoskeletal: No signs and/or symptoms reported regarding the musculoskeletal hb system. hb 19:10 16:00 General: Appears in no apparent distress. ill, Behavior is calm, cooperative, [facility] 19:10 16:00 Pain: Pain currently is 5 out of 10 on a pain scale. [facility] 19:10 16:00 Neuro: Level of Consciousness is awake, alert, obeys commands, Oriented to hb person, place, time, situation, 19:10 16:00 Cardiovascular: Patient's skin is warm and dry. [facility] 19:10 16:00 Respiratory: Respiratory effort is labored, Respiratory pattern is tachypnea [facility] 19:10 16:00 GI: Reports lower abdominal pain, upper abdominal pain, hb 19:10 16:00 : No signs and/or symptoms were reported regarding the genitourinary system. [facility] 19:10 16:00 Musculoskeletal: No signs and/or symptoms reported regarding the musculoskeletal hb system. 19:10 16:00 EENT: Reports blurred vision decreased hearing difficulty swallowing [facility] 19:10 16:00 Derm: Skin temperature is warm bruising noted to abdomen and chest [facility] 19:10 17:30 Reassessment: No changes from previously documented assessment. Patient and/or hb family updated on plan of care and expected duration. Pain level reassessed. hb
--- NOTE | 2020-11-06 21:16 | EDPHYS ---
Physician Documentation [facility] Name: Amaury Matamoros Age: 69 yrs Sex: Male : 1950 Arrival Date: 11/06/2020 Time: 15:11 Bed 7 Private MD: [facility] ED Physician Wally Miles HPI: 11/06 18:05 This 69 yrs old Male presents to ER via Wheelchair with complaints of Picc cp line Problem,Bruising on body. Historical: - Allergies: 15:43 PENICILLINS; ll1 - PMHx: 15:43 Cellulitis; Diabetes - NIDDM; Hypertension; ll1 - PSHx: 15:43 BKA; ll1 - Immunization history:: Flu vaccine is up to date. - Social history:: Smoking status: Patient denies any tobacco usage or history of. ROS: 18:10 Constitutional: Negative for body aches, chills, fever, poor PO intake. cp 18:10 Eyes: Negative for injury, pain, redness, and discharge. cp 18:10 Cardiovascular: Negative for chest pain, edema, palpitations. 18:10 Respiratory: Positive for shortness of breath, at rest. Negative for cough, wheezing. 18:10 Abdomen/GI: Positive for nausea and vomiting, Negative for diarrhea, constipation. 18:10 MS/extremity: Positive for pain, of the right arm. 18:10 Neuro: Positive for headache, Negative for altered mental status, syncope, weakness. 18:10 All other systems are negative. Exam: 18:15 Constitutional: The patient appears in no acute distress, alert, awake, cp non-diaphoretic, non-toxic, well developed, uncomfortable. 18:15 Head/Face: Normocephalic, atraumatic. cp 18:15 Eyes: Periorbital structures: appear normal, Conjunctiva: normal, no exudate, no injection, Sclera: no appreciated abnormality, Lids and lashes: appear normal, bilaterally. 18:15 ENT: External ear(s): are unremarkable, Nose: is normal, Mouth: Lips: moist, Oral mucosa: moist, Posterior pharynx: Airway: no evidence of obstruction, patent. 18:15 Neck: ROM/movement: is normal, is supple, without pain, no range of motions limitations. 18:15 Chest/axilla: Inspection: ecchymosis, that is mild, of the anterior aspect of left upper chest Palpation: is normal, no crepitus, no tenderness. 18:15 Cardiovascular: Rate: normal, Rhythm: regular, Edema: is not appreciated, JVD: is not appreciated. 18:15 Respiratory: the patient does not display signs of respiratory distress, Respirations: labored breathing, that is mild, intercostal retractions, are absent, Breath sounds: bronchial sounds, that are mild, are heard diffusely. 18:15 Abdomen/GI: Inspection: abdomen appears normal, Bowel sounds: active, all quadrants, Palpation: soft, in all quadrants, mild abdominal tenderness, in the epigastric area. 18:15 Musculoskeletal/extremity: left below the knee amputation. 18:15 Neuro: Orientation: to person, place \T\ time. Mentation: is normal, Motor: moves all fours, strength is normal. 19:30 : Rectal exam: Guaiac testing: results were positive for occult blood. 19:35 ECG was reviewed by the Attending Physician. Vital Signs: 15:40 BP 111 / 72; Pulse 87; Resp 17; Temp 97.6; Pulse Ox 94% ; Height 5 ft. 3 in. (160.02 ll1 cm); Pain 10/10; 18:26 Pulse Ox 55% on R/A; hb 18:37 BP 147 / 84; Pulse 92; Resp 32; Pulse Ox 86% on 5 lpm NC; sv 19:11 BP 147 / 84; Pulse 82; Resp 16; Pulse Ox 100% 10% ; hb 21:30 BP 121 / 71; Pulse 86; Resp 18; Pulse Ox 96% on 10 lpm NC; wh 19:11 HFNC hb MDM: 17:56 Patient medically screened. marj 21:00 Data reviewed: vital signs, nurses notes, lab test result(s), EKG, radiologic studies, cp CT scan, plain films. 21:00 Test interpretation: by ED physician or midlevel provider: ECG, plain radiologic cp studies. Physician consultation: Kendrick BUENO was contacted at 21:00, regarding admission, to the telemetry unit. patient's condition, and will see patient in ED, shortly. 11/06 18:01 Order name: Basic Metabolic Panel cp 11/06 18: Order name: CBC with Diff cp 11/06 18:01 Order name: Hepatic Function; Complete Time: 19:10 cp 11/06 19:27 Interpretation: Normal except: AST 140; ALK 172; BILID 0.3; ALB 2.5; GLOB 4.8; A/G 0.5. cp 11/06 18:01 Order name: Lipase; Complete Time: 19:10 cp 11/06 18:01 Order name: Magnesium; Complete Time: 19:10 cp 11/06 18:01 Order name: PT-INR; Complete Time: 19:00 cp 11/06 18:01 Order name: Ptt, Activated; Complete Time: 19:00 cp 11/06 18:02 Order name: Basic Metabolic Panel; Complete Time: 19:10 EDMS 11/06 19:10 Interpretation: Normal except: K 5.4; CL 108; CO2 20; GLUC 179; BUN 67; CRE 3.18; GFR cp 20. 11/06 18:02 Order name: CBC with Automated Diff; Complete Time: 19:00 EDMS 11/06 19:01 Interpretation: Normal except: WBC 12.30; RBC 2.59; HGB 7.1; HCT 22.0; MCV 85.2; PLT cp 178; RDW 15.3; LISET% 81.8; LYM% 9.1; NEUT A 10.0. 11/06 18:06 Order name: Vancomycin,Trough; Complete Time: 19:10 cp 11/06 18:33 Order name: ABG; Complete Time: 19:00 cp 11/06 18:33 Order name: BNP; Complete Time: 19:20 cp 11/06 19:38 Interpretation: Abnormal: NT PRO-BNP 82029. cp 11/06 18:33 Order name: Troponin I; Complete Time: 19:20 cp 11/06 19:19 Order name: Blood Culture Adult (2) cp 11/06 19:19 Order name: Lactate cp 11/06 19:19 Order name: Procalcitonin cp 11/06 19:19 Order name: Blood Culture EDMS 11/06 19:19 Order name: Lactate; Complete Time: 20:51 EDMS 11/06 19:19 Order name: Procalcitonin; Complete Time: 20:56 EDMS 11/06 19:25 Order name: COVID-19/FLU A+B; Complete Time: 19:27 EDMS 11/06 19:27 Order name: Type And Screen cp 11/06 19:28 Order name: Type and Screen EDNM 11/07 00:35 Order name: Potassium; Complete Time: 02:01 EDNM 11/07 00:35 Order name: Troponin I; Complete Time: 02:01 EDNM 11/07 00:35 Order name: T4 Free; Complete Time: 02:01 EDNM 11/07 00:35 Order name: Thyroid Stimulating Hormone; Complete Time: 02:01 EDNM 11/07 01:50 Order name: Urinalysis EDNM 11/07 02:18 Order name: Urine Microscopic Only EDNM 11/06 18:01 Order name: IV Saline Lock; Complete Time: 18:33 cp 11/06 18:01 Order name: Labs collected and sent; Complete Time: 18:33 cp 11/06 18:02 Order name: XRAY Chest (1 view); Complete Time: 19:00 cp 11/06 18:33 Order name: EKG; Complete Time: 18:34 cp 11/06 18:33 Order name: EKG - Nurse/Tech; Complete Time: 19:27 cp 11/06 19:19 Order name: CT Chest Abdomen Pelvis W/O Contrast; Complete Time: 20:51 cp 11/06 21:52 Order name: CONS Physician Consult EDNM 11/07 05:47 Order name: CBC with Automated Diff EDNM 11/07 06:19 Order name: Comprehensive Metabolic Panel EDNM 11/07 06:19 Order name: Uric Acid EDNM 11/07 06:19 Order name: Phosphorus EDNM 11/07 06:19 Order name: Creatine Phosphokinase EDNM 11/07 06:19 Order name: Lipid Profile EDNM 11/07 06:19 Order name: Magnesium EDNM 11/07 06:19 Order name: Transferrin Sat/Iron Binding EDNM 11/07 06:19 Order name: Ferritin EDNM 11/07 07:58 Order name: Glucose, Ancillary Testing EDNM 11/07 08:58 Order name: Troponin I EDNM EC:35 Rate is 88 beats/min. Rhythm is regular. WI interval is normal. QRS interval is normal. cp QT interval is normal. T waves are Inverted in lead aVR. Interpreted by me. Reviewed by me. Administered Medications: 18:20 Drug: ProTONIX (pantoprazole) 40 mg Route: IVP; Site: PICC; 11/07 01:22 Follow up: Response: No adverse reaction 11/06 18:33 Drug: Zofran (Ondansetron) 4 mg Route: IVP; Site: PICC; 11/07 01:22 Follow up: Response: No adverse reaction 11/06 19:56 Drug: Insulin Regular Human 10 units {Co-Signature: mg2 (Eber Peck RN).} Route: IVP; Site: left [facility]; 11/07 01:21 Follow up: Response: No adverse reaction 11/06 19:58 Drug: Cefepime 1 grams Route: IVPB; Rate: 200 ml/hr; Infused Over: 30 mins; Site: left [facility]; 11/07 01:21 Follow up: Response: No adverse reaction; IV Status: Completed infusion 11/06 20:00 Drug: Albuterol 2.5 mg Route: Inhalation; 20:02 Drug: D50W 25 ml Route: IVP; Site: [facility]; 11/07 01:21 Follow up: Response: No adverse reaction 11/06 20:04 Drug: LevaQUIN (levofloxacin) 500 mg Volume: 100 ml; Route: IVPB; Infused Over: 60 wh mins; Site: left [facility]; 11/07 01:22 Follow up: Response: No adverse reaction; IV Status: Completed infusion 11/06 20:30 Drug: Albuterol 2.5 mg Route: Inhalation; 21:20 Drug: ProTONIX (pantoprazole) 8 mg/hr Route: IV; Rate: 25 ml/hr; [place] [facility] 11/07 01:21 Follow up: Response: No adverse reaction; IV Status: Infusion continued upon admission 11/06 21:21 Drug: Lasix (furosemide) 40 mg Route: IVP; [facility] 11/07 01:21 Follow up: Response: No adverse reaction Disposition: 11/08 07:07 Co-signature as Attending Physician, Wally Miles MD I agree with the assessment and marj plan of care. Disposition: 11/06/20 21:15 Hospitalization ordered by Quincy Wilkinson for Inpatient Admission. Preliminary diagnosis are Unspecified combined systolic (congestive) and diastolic (congestive) heart failure, Non-ST elevation (NSTEMI) myocardial infarction, Unspecified kidney failure, Pneumonia due to other specified bacteria, Pulmonary edema. - Bed requested for Telemetry/MedSurg (Inpatient). - Status is Inpatient Admission. hb - Condition is Stable. - Problem is new. - Symptoms have improved. Signatures: Dispatcher [employer] EDNM Vesta Delong RN RN mw Anderson, Corey, MD MD cha Page, Corey, PA PA cp Baxter, Heather, RN RN Ike Montoya RN RN Eber Peck RN RN mg2 Bairon Rivera RN RN ll1 Kendrick Lua PA PA ej Michele Gardose RN mg2 Corrections: (The following items were deleted from the chart) 11/06 18:42 18:10 CORONAVIRUS+MR.LAB.BRZ ordered. EDNM EDMS 18:42 18:34 Influenza Screen (A \T\ B)+BA.LAB.BRZ ordered. EDNM EDMS 19:01 19:01 Normal except: WBC 12.30; RBC 2.59; HGB 7.1; HCT 22.0; MCV 85.2; PLT 178; RDW cp 15.3; LISET% 81.8; LYM% 9.1. cp 19:27 19:10 Normal except: AST 140; ALK 172; BILID 0.3; ALB 2.5; GLOB 4.8. cp cp 21:16 21:15 Hospitalization Ordered by Quincy Wilkinson for Inpatient Admission. Preliminary cp diagnosis is Unspecified combined systolic (congestive) and diastolic (congestive) heart failure; Non-ST elevation (NSTEMI) myocardial infarction; Unspecified kidney failure; Pneumonia due to other specified bacteria. Bed requested for Telemetry/MedSurg (Inpatient). Status is Inpatient Admission. Condition is Stable. Problem is new. Symptoms have improved. cp :30 21:16 11/06/2020 21:15 Hospitalization Ordered by Quincy Wilkinson for Inpatient Admission. Preliminary diagnosis is Unspecified combined systolic (congestive) and diastolic (congestive) heart failure; Non-ST elevation (NSTEMI) myocardial infarction; Unspecified kidney failure; Pneumonia due to other specified bacteria; Pulmonary edema. Bed requested for Telemetry/MedSurg (Inpatient). Status is Inpatient Admission. Condition is Stable. Problem is new. Symptoms have improved. cp 11/07 06:08 11/06 22:30 11/06/2020 21:15 Hospitalization Ordered by Quincy Wilkinson for Inpatient Admission. Preliminary diagnosis is Unspecified combined systolic (congestive) and diastolic (congestive) heart failure; Non-ST elevation (NSTEMI) myocardial infarction; Unspecified kidney failure; Pneumonia due to other specified bacteria; Pulmonary edema. Bed requested for [facility] ER HOLD. Status is Inpatient Admission. Condition is Stable. Problem is new. Symptoms have improved. mw 11/07 08:58 06:08 11/06/2020 21:15 Hospitalization Ordered by Quincy Wilkinson for Inpatient hb Admission. Preliminary diagnosis is Unspecified combined systolic (congestive) and diastolic (congestive) heart failure; Non-ST elevation (NSTEMI) myocardial infarction; Unspecified kidney failure; Pneumonia due to other specified bacteria; Pulmonary edema. Bed requested for Telemetry/MedSurg (Inpatient). Status is Inpatient Admission. Condition is Stable. Problem is new. Symptoms have improved. mw
[2020-11-06] MEDS ORDERED: NA CHLORIDE 0.9% 250 ML ONE (21:34)
[2020-11-06] MEDS ORDERED: FUROSEMIDE 40 MG/4 ML VIAL ONE (21:34)
[2020-11-06] MEDS ORDERED: ALBUTEROL 2.5 MG/3 ML NEB SOL NEB PRN (22:56)
[2020-11-06] MEDS: PANTOPRAZOLE INJ 80 MG in NA CHLORIDE 0.9% 250 ML IV SCH (23:00)
[2020-11-07 00:33] LABS: Potassium 4.8 mmol/L (3.5-5.1); Thyroid Stimulating Hormone 2.91 uIU/mL (0.360-3.740)
[2020-11-07 00:34] LABS: Troponin I 1.84 ng/mL (0.0-0.045)
[2020-11-07 01:15] VITALS: BMI 23.0
[2020-11-07 01:47] LABS: Urine Appearance CLOUDY (Clear); Urine Bilirubin NEGATIVE (Negative); Urine Blood TRACE (Negative); Urine Color YELLOW (Yellow); Urine Glucose TRACE (Negative); Urine Protein 3+ (Negative); Urine Specific Gravity 1.015 (1.005-1.030); Urine Urobilinogen 0.2 mg/dL (0.2-1.0)
[2020-11-07 01:50] LABS: Urine Microscopic Reflex ORDER UMIC
[2020-11-07 02:16] LABS: Urine Amorphous Sediment 2+ /HPF (NONE SEEN); Urine Bacteria LOADED /HPF (NONE SEEN); Urine Mucus 3+ /HPF (NONE SEEN)
[2020-11-07 02:17] LABS: Urine Coarse Granular Casts 0-5 /LPF (NONE SEEN); Urine Yeast MANY (NONE SEEN)
[2020-11-07] MEDS ORDERED: levoFLOXacin 500 MG TAB PO ONE (04:00)
--- NOTE | 2020-11-07 04:09 | P.HP ---
Certification for Inpatient Patient admitted to: Inpatient With expected LOS: >2 Midnights Patient will require the following post-hospital care: Nursing Home Practitioner: I am a practitioner with admitting privileges, knowledge of patient current condition, hospital course, and medical plan of care. Services: Services provided to patient in accordance with Admission requirements found in Title 42 Section 412.3 of the Code of Federal Regulations Patient History Date of Service: 11/07/20 Reason for admission: osteomyelitis History of Present Illness: Mr. Matamoros is a 69 yo male with multiple medical diagnoses recently discharged 2 days ago with osteomyelitis on home IV vancomycin and oral levaquin. He says since discharge his picc site has been hurting and he has sharp pains in his chest. He also reports bruising over his chest abdomen and right arm. He reports general weakness - says he was able to ambulate with assistance before admission but now cannot. He says he has been losing his voice, his eyesight, and his hearing. He says he was SOB but now he feels okay. CXR shows moderate bilateral pulmonary opacities which may represent pulmonary edema or pneumonia, heart is mildly enlarged in size, small right pleural effusion. Right PICC line is in place with its tip in the region of the right atrium. CT shows moderate bilateral lung opacities with small bilateral pleural effusions, may indicate pneumonia or pulmonary edema. moderate fecal retention is seen particularly in the rectum, early/mild findings of liver cirrhosis. fracture medial aspect the left clavicle, age undetermined, correlation with point tenderness may be value. Allergies Penicillins Allergy (Intermediate, Verified 03/03/19 18:20) Rash Home Medications: Calcitrol [Rocaltrol*] 0.5 mcg PO DAILY #30 cap 11/03/20 Cholecalciferol (Vitamin D3) [Vitamin D 5,000 IU Cap*] 5,000 unit PO DAILY #30 cap 11/03/20 Collagenase [Santyl Ointment*] 1 appl TOP DAILY #1 tube 11/03/20 Gabapentin [Neurontin*] 100 mg PO TID #90 cap 11/03/20 Lactobacillus Acidophilus [Acidophilus] 1 each PO TID #90 capsule 11/03/20 Melatonin 10 mg PO BEDTIME PRN PRN #30 tablet 11/03/20 carvediloL [Coreg*] 25 mg PO BID 6AM 6PM #60 tab 11/03/20 glipiZIDE [Glucotrol*] 2.5 mg PO BID #60 tab 11/03/20 Hydralazine [Apresoline*] 25 mg PO BID #60 tab 11/04/20 Vancomycin/0.9 % Sod Chloride [Vanco 1.25 gm/250 ml-0.9% NaCl] 1.25 gm IV Q48H #21 plast..bag 11/04/20 levoFLOXacin [Levaquin*] 500 mg PO Q48H #21 tab 11/04/20 - Past Medical/Surgical History Has patient received pneumonia vaccine in the past: No Diabetic: Yes -: Diabetes mellitus type 2, [id number] -: DM-NIDDM -: Alcohol Abuse -: Tobacco Abuse -: Hypertension -: Chronic pain -: Chronic sacral ulcer -: Left Knee Surgery -: Left BKA with Prosthetic blood -: surg wnd on coccyx wound Psychosocial/ Personal History: He is , has 4 children. He is disabled. - Family History Father -: Heart disease, Hypertension, Diabetes, Cancer Mother -: Diabetes, Stroke - Social History Smoking Status: Smoker current status UNK Alcohol use: Yes CD- Drugs: No Caffeine use: No Place of Residence: Home Review of Systems General: Weakness, As per HPI Eyes: Unremarkable ENT: Unremarkable Respiratory: Shortness of Breath, As per HPI Cardiovascular: Chest Pain, As per HPI Gastrointestinal: Unremarkable Genitourinary: Unremarkable Musculoskeletal: Arm Pain, As per HPI Integumentary: Bruising, As per HPI Neurological: Change in Speech, As per HPI Lymphatics: Unremarkable Physical Examination - Vital Signs Temperature: 98.2 F Blood Pressure: 147/82 Pulse: 83 Respirations: 18 Pulse Ox (%): 95 - Physical Exam General: Alert, In no apparent distress, Oriented x3 HEENT: Atraumatic, Normocephalic, PERRLA, Mucous membr. moist/pink, EOMI, Sclerae nonicteric Neck: Supple, 2+ carotid pulse no bruit, JVD not distended, No Thyromegaly, No LAD Respiratory: Crackles/rales Cardiovascular: No edema, Normal pulses, Regular rate/rhythm, Normal S1 S2, No gallops, No rubs, No murmurs Capillary refill: <2 Seconds Gastrointestinal: Normal bowel sounds, Soft and benign, Non-distended, No ascites, No tenderness, No masses, No rebound, No guarding Musculoskeletal: No clubbing, No swelling, No contractures, No erythema, No tenderness, No warmth, Other (BKA) Integumentary: No rashes, No breakdown, No significant lesion, No erythema, No warmth, No cyanosis, Other (bruising over chest and abdomen ) Neurological: Normal strength at 5/5 x4 extr, Normal tone, Sensation intact, Cranial nerves 3-12 intact Lymphatics: No axilla or inguinal lymphadenopathy - Studies Laboratory Data (last 24 hrs) 11/06/20 18:24: Troponin I 1.13 H* 11/06/20 18:24: PT 12.5, INR 1.09, APTT 28.2 11/06/20 18:24: WBC 12.30 H D, Hgb 7.1 L*, Hct 22.0 L, Plt Count 178 D 11/06/20 18:24: Sodium 139, Potassium 5.4 H, BUN 67 H D, Creatinine 3.18 H D, Glucose 179 H, Magnesium 2.4, Total Bilirubin 0.6, AST 140 H D, ALT 70, Alkaline Phosphatase 172 H, Lipase 89 Assessment and Plan - Plan Assessment Osteomyelitis UTI Gastric ulcers, Anemia, FOBT+ CHF exacerbation, elevated troponin hyperkalemia CALDERON on CKD T2DM Liver Cirrhosis Pain in PICC line Plan Osteomyelitis - ID consulted, will continue vancomycin 1.25 IV q48hr and levaquin 500mg PO q48hr, vanc level wnl in ED, received cefepime and levaquin in the ED. reports changes in eyesight, hearing since initiation of antibiotics, will await recommendations from ID. UTI - levaquin will cover UTI, will continue to monitor Gastric ulcers, Anemia, FOBT+ - protonix drip, type and screen completed, will transfuse to goal of 7 as needed CHF exacerbation, elevated troponin - fluid restrict, low salt diet, lasix 20mg IV daily, O2 as needed, cardiology consulted, will trend troponins, EKG wnl, cardiac workup in January wnl. hyperkalemia - given insulin in the ED, will follow potassium levels CALDERON on CKD - nephrology consulted T2DM - sliding scale insulin Liver Cirrhosis - appears to be chronic, but due to worsening of liver pathology on labs and concurrent anemia and FOBT+, will consult GI Pain in PICC line - PICC consult to evaluate placement of PICC line and continued pain. dilaudid as needed for pain. Discharge Plan: Home Plan to discharge in: 72 Hours - Advance Directives Does patient have a Living Will: No Does patient have a Durable POA for Healthcare: No - Code Status/Comfort Care Code Status Assessed: Yes (full code ) Critical Care: No Time Spent Managing Pts Care (In Minutes): 70
[2020-11-07] MEDS ORDERED: VANCOMYCIN 1.5 GM in NA CHLORIDE 0.9% 500 ML IVPB ONE (05:00)
[2020-11-07] MEDS ORDERED: levoFLOXacin 500 MG TAB ONE (05:04)
[2020-11-07 05:27] LABS: Absolute Lymphocytes (CBC) 0.9 K/uL (0.7-4.9); Basophils % 0.3 % (0-1.3); Hematocrit 21.1 % (39.6-49.0); Lymphocytes % 8.4 % (15.3-44.8); MPV 9.3 fL (7.6-11.3); RBC Red Blood Cell Count 2.47 M/uL (4.33-5.43)
[2020-11-07 06:01] LABS: Albumin 2.3 g/dL (3.4-5.0); Bilirubin Total 0.6 mg/dL (0.2-1.0); Magnesium 2.2 mg/dL (1.8-2.4); Phosphorus 5.9 mg/dL (2.5-4.9); Potassium 4.9 mmol/L (3.5-5.1); Protein, Total 6.6 g/dL (6.4-8.2); Uric Acid 11.5 mg/dL (3.5-7.2)
[2020-11-07] MEDS: INSULIN -REGULAR HUMAN 50 UNIT/0.5 ML ML SQ SCH ×4 (07:30→21:00)
[2020-11-07] MEDS: ONDANSETRON 4 MG/2 ML VIAL IV PRN (07:59)
[2020-11-07] MEDS: HYDROMORPHONE HCL 0.5 MG/0.5 ML INJ IV PRN ×4 (07:59→21:36)
[2020-11-07] MEDS ORDERED: ONDANSETRON 4 MG/2 ML VIAL ONE (08:09)
[2020-11-07] MEDS ORDERED: HYDROMORPHONE HCL 0.5 MG/0.5 ML INJ ONE (08:09)
--- NOTE | 2020-11-07 08:15 | EKG ---
Test Date: 2020-11-07 Test Time: 02:15:07 Remelt Operator: MEASUREMENT RESULTS: Intervals: Rate: 0 [place]: QRSD: 0 QT: 0 QTc: 0 [place]: P: [place]: QRS: 0 T: 0 INTERPRETIVE STATEMENTS: No QRS complexes found, no ECG analysis possible Compared to ECG 11/07/2020 02:13:58 Sinus rhythm no longer present ST (T wave) deviation no longer present Electronically Signed On 11-07-20 08:15:07 CDT by Naoh Keyes
--- NOTE | 2020-11-07 08:15 | EKG ---
Test Date: 2020-11-07 Test Time: 02:13:58 Blacking Wheel Tender: MEASUREMENT RESULTS: Intervals: Rate: 87 [place]: 160 QRSD: 96 QT: 366 QTc: 440 [place]: P: 59 [place]: 160 QRS: 33 T: 32 INTERPRETIVE STATEMENTS: Normal sinus rhythm Nonspecific ST abnormality Abnormal ECG Compared to ECG 11/06/2020 19:24:49 ST (T wave) deviation now present Electronically Signed On 11-07-20 08:15:10 CDT by Noah Keyes
--- NOTE | 2020-11-07 08:16 | EKG ---
Test Date: 2020-11-06 Test Time: 19:24:49 Recorder Of Deeds: MEASUREMENT RESULTS: Intervals: Rate: 88 [place]: 114 QRSD: 98 QT: 352 QTc: 425 [place]: P: 17 [place]: 114 QRS: 27 T: 33 INTERPRETIVE STATEMENTS: Normal sinus rhythm Normal ECG Compared to ECG 10/29/2020 14:13:56 Atrial premature complex(es) no longer present ST (T wave) deviation no longer present Electronically Signed On 11-07-20 08:15:23 CDT by Noah Keyes
[2020-11-07] MEDS ORDERED: FUROSEMIDE 20 MG/ 2ML VIAL IV SCH (09:00)
[2020-11-07] MEDS: PANTOPRAZOLE INJ 80 MG in NA CHLORIDE 0.9% 250 ML IV SCH ×2 (09:12→19:00)
--- NOTE | 2020-11-07 09:15 | CON ---
Date of Consultation: 11/07/2020 Reason For Consultation: Possible congestive heart failure and elevated troponin. History Of Present Illness: Mr. Matamoros is a 69-year-old male with history of left BKA, stump infect ion, alcohol abuse, tobacco abuse, cellulitis, hypertension, and diabetes, came in mostly because of his stump infection and osteomyelitis, for which he has been on antibiotics. He has acute kidney inj ury, normal EKG. Chest x-ray showed possible congestive heart failure versus pneumonia, atypical magalys st pain, elevated troponin. The patient denied PND, orthopnea, pedal edema, palpitations, or syncope . He denied any fever or chills. Allergies: HE IS ALLERGIC TO PENICILLIN. Review of Systems: Negative. Social History: Positive for alcohol and tobacco. Family History: Positive for diabetes. Medications: At home include antibiotics, hydralazine, Neurontin, Glucotrol, and Coreg. Physical Examination: Vital Signs: Stable, although his initial blood pressure was slightly low. He was afebrile. He was in a sinus rhythm. General: He is status post left BKA. HEENT: Negative. Neck: Supple with no bruit. Chest: Clear to auscultation and percussion. Cardiac: Regular rhythm and rate with an S4 gallops. Abdomen: Benign. Extremities: Status post left BKA. No edema. Diagnostic Data: His pO2 was 59, pCO2 34, pH of 7.36. His white count was 12,000. Chest x-ray show ed pneumonia, possible congestive heart failure. Troponin was 1.84. He has UTI. He has a ferritin level of 2200, AST of 682, ALT of 317. His hemoglobin was 7.5, creatinine is 3.18. Echocardiogram i n January of 2020 showed diastolic congestive heart failure with a normal ejection fraction. Impression And Plan: 1.Elevated troponin secondary to anemia, renal insufficiency, and hypoxia. This is demand ischemia. This is not an acute coronary syndrome. Echocardiogram is pending. 2.Urinary tract infection. 3.Status post below-knee amputation on the left with stump infection. 4.Diabetes. 5.Hypertension. 6.Cirrhosis with elevated liver function enzymes. I think the patient needs to be transfused, needs to be hydrated to improve his renal function. I am not so sure he has congestive heart failure. I think Lasix 20 mg IV once a day may be enough. He n eeds to continue inhalers, antibiotics. I think he should have a Nephrology consultation, an Infecti ous Disease consultation, and a GI consultation. We will see what his echocardiogram shows before carlene resendez any further decisions. HI/MELY Voice ID: [id number] Report ID: [id number]
[2020-11-07] MEDS ORDERED: NA CHLORIDE 0.9% 250 ML ONE ×2 (09:43→23:20)
[2020-11-07] MEDS ORDERED: HYDRALAZINE HCL 20 MG/ML VIAL IV ONE (12:01)
[2020-11-07] MEDS ORDERED: METOCLOPRAMIDE 10 MG/2mL INJ IV ONE (14:11)
[2020-11-07] MEDS: GOLYTELY 4000 ML PO SCH (14:28)
--- NOTE | 2020-11-07 14:54 | P.PN ---
Subjective Date of Service: 11/07/20 Chief Complaint: osteomyelitis Patient complaining of shortness of breath. Blood pressure is intermittently elevated. Patient seen by cardiology. Physical Examination - Vital Signs Temperature: 97.8 F Blood Pressure: 131/65 Pulse: 92 Respirations: 18 Pulse Ox (%): 95 - Physical Exam General: Alert, In no apparent distress, Oriented x3 HEENT: PERRLA, Mucous membr. moist/pink, EOMI, Scleral icterus Neck: Supple, JVD not distended Respiratory: Normal air movement, Crackles/rales (Bilateral) Cardiovascular: No edema, Regular rate/rhythm, Normal S1 S2 Capillary refill: <2 Seconds Gastrointestinal: Normal bowel sounds, Soft and benign, Non-distended, No tenderness Musculoskeletal: Other (Left BKA) Integumentary: Other (Nonhealing ulcer at the taper off left BKA stump) Neurological: Normal strength at 5/5 x4 extr, Cranial nerves 3-12 intact - Studies Laboratory Data (last 24 hrs) 11/06/20 18:24: Troponin I 1.13 H* 11/06/20 18:24: PT 12.5, INR 1.09, APTT 28.2 11/06/20 18:24: WBC 12.30 H D, Hgb 7.1 L*, Hct 22.0 L, Plt Count 178 D 11/06/20 18:24: Sodium 139, Potassium 5.4 H, BUN 67 H D, Creatinine 3.18 H D, Glucose 179 H, Magnesium 2.4, Total Bilirubin 0.6, AST 140 H D, ALT 70, Alkaline Phosphatase 172 H, Lipase 89 Assessment And Plan - Current Problems (Diagnosis) (1) Pneumonia Current Visit: Yes Status: Acute (2) Pulmonary edema Current Visit: Yes Status: Acute (3) Anemia Current Visit: No Status: Acute Qualifiers: Anemia type: iron deficiency Iron deficiency anemia type: unspecified iron deficiency Qualified Code(s): D50.9 - Iron deficiency anemia, unspecified (4) Elevated troponin Current Visit: No Status: Acute (5) Acute worsening of stage 4 chronic kidney disease Current Visit: Yes Status: Acute (6) Osteomyelitis of tibia Current Visit: No Status: Acute (7) Pressure ulcer of BKA stump, stage 2 Current Visit: No Status: Resolved - Plan Patient with diffuse bilateral lung opacities needing oxygen. Pneumonia versus pulmonary edema. Procalcitonin only mildly elevated Cardiology input appreciated. Elevated troponin deemed secondary to renal insulin sensitive, hypoxia and anemia. Patient also has early or mild findings of liver cirrhosis elevated liver enzymes. This could be secondary to hepatic congestion heart failure. Continue antibiotics. Nephrology consult. 1 unit PRBC transfusion. Continue IV Lasix. Titrate oxygen Infectious Disease consult. Not sure the pulmonary edema is due to volume overload from Vanco administration. His previous wound culture has grown mixed simi. Vancomycin to be renally dosed by pharmacy. IV Levaquin to cover pneumonia. Check ESR Pain management as needed.
[2020-11-07] MEDS ORDERED: ALBUMIN HUMAN 25% 50 ML IV ONE (15:35)
[2020-11-07 16:19] LABS: Hematocrit 24.6 % (39.6-49.0)
--- NOTE | 2020-11-07 19:26 | CON ---
Date of Consultation: 11/07/2020 Requesting Provider: Dr. Quincy Wilkinson. Reason For Consultation: Renal insufficiency. History Of Present Illness: Mr. Matamoros is a tremendous 69-year-old male admitted with complaints of pain over his PICC line. He was admitted recently with osteomyelitis and was sent home on IV antibi otics. The patient had a decreased energy level and has been rehospitalized now shows severe anemia and suspected GI bleed and underlying setting of cirrhosis. Our consultation was requested for renal insufficiency. Mr. Matamoros has followed with robert Nails y partner in the past for CKD secondary to hypertension with baseline creatinine 1.4-1.6. During thi s admission, the patient is planned to have colonoscopy tomorrow from the setting of his GI bleed. Monae morgan is also receiving blood transfusions. The patient did have hyperkalemia, which was also medically managed. Potassium levels had improved. The patient is a poor historian, unable to tell me if there are any recent medication changes, althou gh he is unable to tell me if there are any dietary changes as well. Currently, the patient is being managed with analgesia, antibiotics, and Protonix drip. Past Medical History: Chronic kidney disease, hypertension, diabetes, diabetic angiopathy, amputatio n of left lower extremity, BKA. Physical Examination: Vital Signs: Blood pressure 131/65, pulse 92, afebrile. General: The patient appears jaundiced. Heart: Regular rate and rhythm. No murmurs, rubs, or gallops. Lungs: Decreased breath sounds at the bases. Abdomen: Soft, nontender. Extremities: With no significant edema. Amputated state noted with an opened wound of the stump. Laboratory Data: BUN, creatinine 72/3.13, potassium 4.9, chloride 108, calcium 8.4, phosphorus 5.9, magnesium 2.2. AST, ALT elevated, 682 and 317 respectively, also with elevated troponins. TSH 2.19. UA shows evidence of urinary tract infection with bacteria with mucus, RBCs, WBCs vancomycin level 11. Current medications were reviewed. Impression: 1.Acute kidney injury on chronic kidney disease, currently likely setting in the setting of volume d epletion. However, may have element of underlying chronic hepatorenal syndrome. 2.Hyperkalemia, which is resolved. 3.Metabolic acidosis, improved. 4.Severe anemia with iron deficiency with evidence of gastrointestinal bleed. 5.Myocardial infarction. 6.Urinary tract infection. 7.Diabetic ketoacidosis with stump infection. 8.Cirrhosis. 9.Fecal retention. Plan: Mr. Matamoros currently appears to be a volume depleted to euvolemic. I will discontinue patien t's Lasix, give 1 dose of albumin and continue antibiotics and follow cultures per primary team. The patient is to receive blood transfusions and is planned for colonoscopy. Please avoid NSAIDs and co ntrast. Monitor strict input and output. The patient does have a PICC line and given that the patient has chronic kidney disease as worsening, consideration should be given to converting PICC to a tunneled central line, so as to avoid affectin g the vasculature of the upper arm, however, that decision can be undertaken later in the admission. Thank you for the consultation, Dr. Wilkinson. We will continue to follow. CHITO Voice ID: [id number] Report ID: [id number]
[2020-11-08] MEDS: HYDROMORPHONE HCL 0.5 MG/0.5 ML INJ IV PRN ×4 (04:14→18:33)
[2020-11-08 05:44] LABS: Absolute Lymphocytes (CBC) 0.9 K/uL (0.7-4.9); Basophils % 0.3 % (0-1.3); Hematocrit 27.7 % (39.6-49.0); Lymphocytes % 8.7 % (15.3-44.8); MPV 9.1 fL (7.6-11.3); RBC Red Blood Cell Count 3.22 M/uL (4.33-5.43)
[2020-11-08 06:04] LABS: Albumin 2.4 g/dL (3.4-5.0); Bilirubin Total 0.9 mg/dL (0.2-1.0); Potassium 4.2 mmol/L (3.5-5.1); Protein, Total 6.7 g/dL (6.4-8.2)
[2020-11-08] MEDS: PANTOPRAZOLE INJ 80 MG in NA CHLORIDE 0.9% 250 ML IV SCH ×2 (07:23→15:00)
[2020-11-08] MEDS: INSULIN -REGULAR HUMAN 50 UNIT/0.5 ML ML SQ SCH ×4 (07:30→20:41)
--- NOTE | 2020-11-08 10:51 | EKG ---
Test Date: 2020-11-07 Test Time: 02:49:19 [employer]ooter: MEASUREMENT RESULTS: Intervals: Rate: 79 HI: 132 QRSD: 82 QT: 392 QTc: 449 [place]: P: 44 HI: 132 QRS: 74 T: 31 INTERPRETIVE STATEMENTS: Normal sinus rhythm Normal ECG Compared to ECG 11/07/2020 02:15:07 No significant changes Electronically Signed On 11-08-20 10:47:01 CDT by Noah Keyes
[2020-11-08] MEDS: NA CHLORIDE 0.9% IVPB SCH (11:00)
[2020-11-08] MEDS: DAPTOMYCIN IVPB SCH (11:00)
[2020-11-08] MEDS ORDERED: HYDRALAZINE HCL 20 MG/ML VIAL IV ONE (11:58)
[2020-11-08] MEDS ORDERED: NA CHLORIDE 0.9% 0 ML ONE (12:38)
[2020-11-08] MEDS ORDERED: NA CHLORIDE 0.9% 500 ML ONE (12:47)
--- NOTE | 2020-11-08 13:13 | PN ---
Date of Progress Note: 11/08/2020 The patient had came in with severe anemia, renal insufficiency, elevated liver function tests, UTI, elevated troponin secondary to anemia and demand ischemia. He is feeling much better toda y hemoglobin improved. His LFTs remained elevated. He is being on antibiotic. Echocardi ogram is still pending for today. We will see what that shows before making further decisions. HI/MELY Voice ID: [id number] Report ID: [id number]
[2020-11-08] MEDS ORDERED: propofoL 200 MG/20 ML VIAL IV ONE (14:01)
--- NOTE | 2020-11-08 14:20 | ENDO RPT ---
[address], [address] EGD PROCEDURE REPORT EXAM DATE: 11/08/2020 PATIENT NAME: Amaury Matamoros MR#: [id number] BIRTHDATE: 1950 ATTENDING: Kael Goldstein Dr STATUS: inpatient - [facility] [employer] TECHNICIAN: Rosi Eldridge RN and Lora Greco INDICATIONS: The patient is a 69 yr old Male here for an EGD due to anemia and hemoccult positive stools PROCEDURE PERFORMED: EGD with biopsy MEDICATIONS: Per Anesthesia. TOPICAL ANESTHETIC: none CONSENT: The patient understands the risks and benefits of the procedure and understands that these risks include, but are not limited to: sedation, allergic reaction, infection, perforation and/or bleeding. Alternative means of evaluation and treatment include, among others: physical exam, x-rays, and/or surgical intervention. The patient elects to proceed with this endoscopic procedure. DESCRIPTION OF PROCEDURE: During intra-op preparation period all mechanical medical equipment was checked for proper function. Hand hygiene and appropriate measures for infection prevention was taken. Procedure, possible complications, and alternatives including but not limited to the possibility of bleeding, perforation, tear, infection, sepsis, need for surgery, need for blood transfusion, and anesthesia related complications were explained to the patient. After the risks, benefits and alternatives of the procedure were thoroughly explained, Informed consent was verified, confirmed and timeout was successfully executed by the treatment team. The patient was placed in the left lateral position. The patient was anesthetized with topical anesthesia. Through the anesthetized oropharyngeal area, the scope was passed without any difficulty. The [id number] ([id number]) and [id number] ([id number]) endoscope was introduced through the mouth and advanced to the third portion of the duodenum. Retroflexed views revealed a small hiatal hernia. The gastroscope was then slowly withdrawn and removed. A small hiatal hernia was found Moderate Atrophic gastritis was found in the body and the antrum of the stomach. Multiple biopsies were obtained and sent to pathology. ADVERSE EVENTS: There were no complications. IMPRESSIONS: 1. Small hiatal hernia 2. Moderate atrophic gastritis in the body and the antrum of the stomach, s/p biopsies RECOMMENDATIONS: 1. await biopsy results 2. acid suppression therapy REPEAT EXAM: Kael Goldstein Dr eSigned: Kael Goldstein Dr 11/08/2020 2:19 PM cc: CPT CODES: ICD9 CODES: PATIENT NAME: Amaury Matamoros MR#: [id number]
[2020-11-08] MEDS: GOLYTELY 4000 ML PO SCH (15:00)
--- NOTE | 2020-11-08 15:47 | P.PN ---
Subjective Date of Service: 11/08/20 Chief Complaint: osteomyelitis No new complain. Patient was scheduled to have a colonoscopy done today but drank only a small amount of the colonoscopy prep. He remain on 6 L oxygen by nasal cannula. No recorded fever. Status post 1 unit PRBC transfusion. Posttransfusion hemoglobin is up to 9 Physical Examination - Vital Signs Temperature: 98.5 F Blood Pressure: 140/76 Pulse: 96 Respirations: 20 Pulse Ox (%): 99 - Physical Exam General: Alert, In no apparent distress, Oriented x3 HEENT: Mucous membr. moist/pink Neck: JVD not distended Respiratory: Diminished, Crackles/rales (bilateral) Cardiovascular: No edema, Regular rate/rhythm, Normal S1 S2 Gastrointestinal: Soft and benign, Non-distended, No tenderness Musculoskeletal: No swelling, Other (Left BKA) Integumentary: Other (Healing wound on left BKA stump) Neurological: Other (No focal motor deficit.) Assessment And Plan - Current Problems (Diagnosis) (1) Pneumonia Current Visit: Yes Status: Acute (2) Pulmonary edema Current Visit: Yes Status: Acute (3) Anemia Current Visit: No Status: Acute Qualifiers: Anemia type: iron deficiency Iron deficiency anemia type: unspecified iron deficiency Qualified Code(s): D50.9 - Iron deficiency anemia, unspecified (4) Elevated troponin Current Visit: No Status: Acute (5) Acute worsening of stage 4 chronic kidney disease Current Visit: Yes Status: Acute (6) Osteomyelitis of tibia Current Visit: No Status: Acute (7) Pressure ulcer of BKA stump, stage 2 Current Visit: No Status: Resolved - Plan Patient with diffuse bilateral lung opacities needing oxygen. Pneumonia versus pulmonary edema. Procalcitonin only mildly elevated Cardiology input appreciated. Elevated troponin deemed secondary to renal insulin sensitive, hypoxia and anemia. Patient also has early or mild findings of liver cirrhosis elevated liver enzymes. This could be secondary to hepatic congestion heart failure. I favor pneumonia over pulmonary edema based on CT chest findings. Continue antibiotics. Nephrology input appreciated Status post 1 unit PRBC transfusion. Lasix discontinued. Serum creatinine trended down after albumin infusion. Titrate oxygen Infectious Disease consult. Continue IV Levaquin to cover pneumonia. Vancomycin changed to daptomycin due to concern for volume overload with vancomycin volume. Pain management as needed. Dr. Goldstein input appreciated. EGD done showing mild atrophic gastritis. Protonix. Monitor CBC and electrolytes
[2020-11-08] MEDS ORDERED: ALBUTEROL 2.5 MG/3 ML NEB SOL NEB PRN (17:00)
--- NOTE | 2020-11-08 17:28 | CON ---
69 yr olf consulted for possible pulmonary edema versus pneumonitis. The patient also has pleural effusion on the x-ray and CT scan also showed the patient has some constipation. His renal function was elevated with a creatinine of 3. Past Medical History: Diabetes mellitus, alcohol abuse, tobacco abuse, hypertension, chronic pain, chronic sacral ulcer, left knee surgery and amputation, left BKA with osteomyelitis of the stump. Social History: Tobacco and alcohol positive. Family History: Noncontributory. Medications: Vancomycin and Levaquin. See MAR for other medications. Allergies: TO PENICILLIN. Review of Systems: A 10-point review was performed. Physical Examination: General: This is a 69-year-old male, lying in bed, not in any acute distress. Vital Signs: Temperature 98, pulse 90, respirations 19, blood pressure 166/84. HEENT: Unremarkable. Neck: Supple. Lungs: Basal crackles. Heart: S1, S2. Regular. Abdomen: Soft, nontender. Bowel sounds present. Extremity: No edema. Left BKA wound has healed. Laboratory Data: Shows WBC 10.4 down from 12.3, hemoglobin 9.2 after 2 units of transfusion, platelets are 172. ESR is 51. Chemistry shows sodium 137, potassium 4.2, chloride 105, bicarb 21, BUN 74, creatinine 2.9. He came with creatinine of 3.18. His previous normal creatinine was in February 03, 2020 and his creatinine was 1.28. Since then, it has been steadily increasing on recurrent chemistry examination. Micro data; blood cultures, no growth for 24 hours. Chest x-ray; bilateral opacities, possible pulmonary edema versus pneumonitis with slight pleural effusions. Assessment And Plan: A 69-year-old male with multiple medical problems, coming in with some shortness of breath, currently on nasal cannula for oxygenation. Because of deteriorating kidney function, we will recommend to discontinue vancomycin and start the patient on daptomycin every 48 hours and do CPK once a week. Continue Levaquin to cover gram-negative and possible pneumonitis. Continue supportive care and monitor for signs of infection. The patient also has severe anemia, possible GI bleed. Pending endoscopy at this time. Protein- calorie malnourishment, elevated liver enzymes most likely secondary to alcohol use. Blood cultures, no growth. We will continue to monitor for next 72 hours. Follow the patient closely. Osteomyelitis of left BKA stump. Continue total 6 weeks of antibiotic, monitor kidney function, and manage daptomycin accordingly and other medications accordingly. Thank you Dr. Wilkinson for consult. KERWIN/MELY Voice ID: [id number] Report ID: [id number] MTDTrip
[2020-11-08] MEDS ORDERED: VANCOMYCIN 1.5 GM in NA CHLORIDE 0.9% 500 ML IVPB ONE (20:00)
[2020-11-08] MEDS ORDERED: VANCOMYCIN 1 GM in NA CHLORIDE 0.9% 250 ML IVPB SCH (20:00)
[2020-11-08] MEDS: SODIUM CHLORIDE 0.9% 10ML INJ IV PRN (20:40)
[2020-11-08] MEDS: PANTOPRAZOLE 40 MG INJ IVP SCH (20:40)
--- NOTE | 2020-11-08 20:49 | CON ---
Date of Consultation: 11/07/2020 Reason For Consultation: Heme-positive stool with anemia, hemoglobin down to 6.7; history of peptic ulcer disease; and ongoing osteomyelitis. History Of Present Illness: The patient is a 69-year-old male with history of diabetes, hyp ertension, alcohol/tobacco abuse, chronic pain syndrome, who presented to the hospital with recurrenc e of his osteomyelitis and sepsis. White count 12.3, with antibiotics down to 10.7, polys 83% up to 84%. He has heme-positive stool. His hemoglobin dropped to 6.7, MCV of 85.3. He denies any prior c olon cancer screening. He thinks he had an EGD approximately 2 years ago. Has a history of peptic u lcer disease. Also had congestive heart failure and elevated troponin I, however, his creatinine is somewhat elevated. Troponin I has been in the order of 1.13 to 1.85 with BNP of 39,777. He denies a ny melena, hematochezia, hematemesis, coffee-grounds emesis, hematuria, dysuria, polyuria, polydipsia . Past Medical History: Significant for diabetes, hypertension, alcohol/tobacco abuse, chronic pain, c hronic sacral ulcer, left knee surgery, left [id number] amputation with prosthesis, surgery on e coccyx wound as well noted. Medications: Include calcitriol, vitamin D3, collagenase, Neurontin, lactobacillus, melatonin, Coreg , Glucotrol, hydralazine, vancomycin, Levaquin. Allergies: PENICILLINS, GIVES A RASH. Social History: He is . Six children. 23 grandchildren as we told. Tobacco: He was a 3-pack per day smoker, quit approximately 3 weeks ago. Alcohol: Quit approximately 3 weeks ago. Has one beer a week, but in the past, he would drink 2 to 3 beers when got home from work and sometimes a 12 pack, especially at weekends. 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 Family History: Father of cancer of the neck, had a two-vessel CABG and coronary artery disease . Mother in June 2020 at the age of 94 years of age. Brother on September 12, 2020 due to COVID-19. Review of Systems: Patient has heme-positive stool, some lethargy. He says has some mild abdominal pain, possibly in th e upper abdomen and lower abdomen, that is moderate and transient. Denies any melena, hematochezia, hematemesis, coffee-grounds emesis, hematuria, dysuria, polydipsia, chest pain, short of breath, seiz ure, syncope, lower extremity edema, muscle aches, joint aches, and backaches. Physical Examination: Measurements: He is 5 feet 3 inches, 130 pounds. BMI of 23 kg/sq m. Vital Signs: Temperature 98 degrees Fahrenheit, pulse 85, respirations 19, blood pressure 172/89, O2 saturation 94%. General: He is alert male, lying in bed, in no acute distress. HEENT: Normocephalic, atraumatic. Anicteric. Pupils equal, round, and reactive to light. Extraocu lar movements are intact. Oropharynx is clear. Neck: Supple. No masses. Respirations: Clear to auscultation bilaterally. Cardiac: Regular rate and rhythm. No gallops or rubs. Abdomen: Positive bowel sounds. Soft, some mild tenderness on the left lower quadrant in the midepi gastric area, but it is very mild. No peritoneal sign. No guarding. No rebound. Extremities: Some mild clubbing. No cyanosis. He had a left [id number]-[id number] amputation. Neuro: Alert and oriented. Able to move all extremities well. Diagnostic Data: He has a white count of 10.7, down from 12.3 yesterday; hemoglobin of 6.7; hematocr it 21.1; MCV of 85; platelet count of 159; polys of 84%; lymphocytes 8%; monocytes 7%. PT of 12.5, I NR 1.1, PTT 28.2. He has sodium 138, potassium 4.9, chloride 108, bicarb 21, BUN 72, creatinine of 3 .13, glucose 108, uric acid 11.5, calcium 8.4, phosphorus is 5.9, magnesium 3.2. Iron of 32, TIBC of 385, iron saturation of 8.3%, ferritin of 2208, total bilirubin 0.6, AST of 682, ALT of 317, and alk cande phosphatase 134. Troponin I of 1.13 and 1.84 and 1.85. Yesterday, patient had AST of 140, ALT of 70, and alkaline phosphatase of 172. UA, trace blood, 5 to 10 rbc's and white cells, loaded bacteria, negative nitrite, negative leukocyte esterase, 3+ mucus, many yeast, 3+ total protein, squamous epithelial cells less than 5, little pyur ia. The influenza A and B negative. COVID-[address] PCR nasal sw[address] negative. CT chest, abdomen and pelvis revealed moderate bilateral lung opacities with small bilateral pleural effusions consistent with pn eumonia and pulmonary edema, moderate fecal retention in the rectum, mild early findings of cirrhosis , fractured medial aspect of left clavicle, age undetermined. Impression: 1.Heme-positive stool. 2.Anemia. Hemoglobin 6.7, MCV of 85.3 with iron saturation of 8.3, which is low. Ferritin was high of 2208, which is inflammatory reaction. He had no prior colonoscopy. He thinks he had an EGD appr oximately 2 years ago. 3.History of peptic ulcer disease. 4.Osteomyelitis with sepsis. White count 12.3, down to 10.7, but poly has gone from 82% to 84% over night. He has congestive heart failure. BNP of 39,777. 5.Elevated troponin I of 1.13 to 1.84 to 1.85, and his creatinine is 3.13. 6.Liver dysfunction, albumin 2.3. AST and ALT elevated, mild elevation alkaline phosphatase with to gaston and direct bilirubin normal at 0.[address] reveals possible mild early stages of cirrhosis. 7.History of diabetes, hypertension, alcohol, tobacco abuse, chronic pain, chronic sacral ulcer, chey shanna for coccyx wound, left below knee amputation with prosthesis and left knee surgery. Recommendations: 1.Serial H and H, and transfuse p.r.n. 2.Agree with packed RBCs now. 3.Ultrasound of abdomen, consider MRCP. 4.Colonoscopy and EGD. 5.Monitor labs. WS/MODL Voice ID: [id number] Report ID: [id number]
--- NOTE | 2020-11-08 22:03 | P.PN ---
Date of Service: 11/08/20 Vital Signs Temp Pulse Resp BP Pulse Ox 98.2 F 104 H 20 147/78 H 98 11/08/20 20:00 11/08/20 20:00 11/08/20 20:00 11/08/20 20:00 11/08/20 20:00 Medications Albuterol Sulfate (Albuterol 2.5 Mg/3 Ml Neb Lorena) 2.5 mg NEB [id number] PRN PRN Reason: SHORTNESS OF BREATH Hydromorphone HCl (Hydromorphone Hcl 0.5 Mg/0.5 Ml Inj) 0.5 mg IV Q4H PRN PRN Reason: Pain scale 5-7 (Moderate) Last Admin: 11/08/20 18:33 Dose: 0.5 mg Documented by: Daptomycin 250 mg/ Sodium (Chloride) 100 mls @ 200 mls/hr IVPB Q48H BAIRON; Protocol Last Admin: 11/08/20 11:00 Dose: 100 mls Documented by: Insulin Human Regular (Insulin -Regular Human 50 Unit/0.5 Ml Ml) 0 unit SQ ACHS BAIRON; Protocol Last Admin: 11/08/20 20:41 Dose: Not Given Documented by: Levofloxacin (Levofloxacin 250 Mg Tab) 250 mg PO Q48H BAIRON Ondansetron HCl (Ondansetron 4 Mg/2 Ml Vial) 4 mg IV Q6HP PRN PRN Reason: NAUSEA / VOMITING Last Admin: 11/07/20 07:59 Dose: 4 mg Documented by: Pantoprazole Sodium (Pantoprazole 40 Mg Inj) 40 mg IVP Q12HR BAIRON; Protocol Last Admin: 11/08/20 20:40 Dose: 40 mg Documented by: Sodium Chloride (Flush Normal Saline 10 Ml) 10 ml IV BID BAIRON Last Admin: 11/08/20 20:40 Dose: 10 ml Documented by: Sodium Chloride (Sodium Chloride 0.9% 10ml Inj) 10 ml IV UD PRN PRN Reason: Diluant Last Admin: 11/08/20 20:40 Dose: 10 ml Documented by: Lab Results (last 24 hrs) 11/06/20 19:46: ABO/Rh B POSITIVE, Solid Phase Ab Screen Negative, Crossmatch See Detail Microbiology Results 11/06/20 19:37 Blood - Blood Aerobic Blood Culture - Preliminary No growth in 24 hours. 11/06/20 19:37 Blood - Blood Anaerobic Blood Culture - Preliminary No growth in 24 hours. 11/06/20 19:46 Blood - Blood Aerobic Blood Culture - Preliminary No growth in 24 hours. 11/06/20 19:46 Blood - Blood Anaerobic Blood Culture - Preliminary No growth in 24 hours. Assessment/ Plan: Nephrology No acute cardiac or pulmonary complaints. No CP or SOB. +Appetite No acute events overnight. Vitals, medications, blood work and imaging reviewed in the chart. NAD. MMM. Neck supple. CTA. RRR. Soft Abd. No C/C/E. No rash. AAO. Normal Speech. Left BKA. A/P: Continue the current POC and Medications other than the changes listed. AM Labs PRN. Recommend daily weight. Please see the orders for complete details. CALDERON likely due hypovolemia CKD IV -No NSAIDs -IVF bolus as needed Hyperkalemia -Monitor potassium Acidosis -Start oral bicarb prn Hypocalcemia -Start Vitamin D Moderate malnutrition -Encourage nutrition Anemia in chronic illness Iron deficiency -Agree with PRBC transfusion Osteomyelitis of tibia -Continue abx
[2020-11-09] MEDS: HYDROMORPHONE HCL 0.5 MG/0.5 ML INJ IV PRN ×5 (00:44→20:30)
[2020-11-09 04:49] LABS: Absolute Lymphocytes (CBC) 0.5 K/uL (0.7-4.9); Basophils % 0.4 % (0-1.3); Hematocrit 25.5 % (39.6-49.0); Lymphocytes % 3.8 % (15.3-44.8); MPV 8.6 fL (7.6-11.3); RBC Red Blood Cell Count 2.96 M/uL (4.33-5.43)
[2020-11-09 05:21] LABS: Albumin 2.1 g/dL (3.4-5.0); Bilirubin Total 1.3 mg/dL (0.2-1.0); C-Reactive Protein 92.8 mg/L (<3.00); Potassium 3.9 mmol/L (3.5-5.1); Protein, Total 6.4 g/dL (6.4-8.2)
--- NOTE | 2020-11-09 07:13 | RAD REPORT ---
EXAM DESCRIPTION: RAD - Chest Single View - 11/09/2020 5:30 am CLINICAL HISTORY: hypoxia, pneumonia vs CHF COMPARISON: Portable November 06, portable November 02 TECHNIQUE: AP portable chest image was obtained 11/09/2020 5:30 am . FINDINGS: Lung volumes are diminished compared to prior study. Extensive bilateral interstitial and alveolar opacification is present progressive from the prior study. Parenchymal opacification changes greater than expected based on the lower lung volumes. Heart size is similar or slightly smaller peter n November 06 imaging. No measurable pleural effusion and no pneumothorax. No acute bony abnormality s een. Right-side PICC line remains in place. IMPRESSION: Worsening bilateral pulmonary opacities since November 06. Worsening lung parenchymal opacification in the setting of slightly smaller heart size would favor wo rsening pneumonia rather than worsening CHF.
[2020-11-09] MEDS: INSULIN -REGULAR HUMAN 50 UNIT/0.5 ML ML SQ SCH ×4 (07:30→20:26)
[2020-11-09 08:54] LABS: Platelet Estimate DECR; White Blood Cell Scan OK (OK)
[2020-11-09 08:55] LABS: Blood Morphology Comment NOT SEEN (NOT SEEN)
[2020-11-09] MEDS ORDERED: POTASSIUM CL SA 10 MEQ TAB PO ONE (09:00)
--- NOTE | 2020-11-09 09:08 | ECHO ---
HEIGHT: 5 ft 3 in WEIGHT: 130 lb 0.106 oz DATE OF STUDY: 11/08/[address]: Kendrick Lua 2-DIMENSIONAL: YES M.MODE: YES DOPPLER: YES COLOR FLOW: YES TDS: NO PORTABLE: NO DEFINITY: NO BUBBLE STUDY: NO DIAGNOSIS: PULMONARY EDEMA CARDIAC HISTORY: CATHERIZATION: NO SURGERY: NO PROSTHETIC VALVE: NO PACEMAKER: NO MEASUREMENTS (cm) DIASTOLIC (NORMALS) SYSTOLIC (NORMALS) IVSd 1.1 (0.6-1.2) LA Diam 2.8 (1.9-4.0) LVEF 51% LVIDd 4.1 (3.5-5.7) LVIDs 3.1 (2.0-3.5) %FS 25% LVPWd 1.2 (0.6-1.2) Ao Diam 2.9 (2.0-3.7) 2 DIMENSIONAL ASSESSMENT: RIGHT ATRIUM: NORMAL LEFT ATRIUM: NORMAL RIGHT VENTRICLE: NORMAL LEFT VENTRICLE: NORMAL TRICUSPID VALVE: MITRAL VALVE: MITRAL ANNULAR CALCIFICATION PULMONIC VALVE: AORTIC VALVE: CALCIFIED PERICARDIAL EFFUSION: NONE AORTIC ROOT: NORMAL LEFT VENTRICULAR WALL MOTION: NORMAL DOPPLER/COLOR FLOW: SEE BELOW. COMMENTS: NORMAL LEFT VENTRICULAR EJECTION FRACTION 55-60%. DIASTOLIC DYSFUNCTION. MILD TRICUSPID REGURGITATION. MODERATE TO SEVERE MITRAL REGURGITATION. PULMONARY HYPERTENSION WITH RIGHT VENTRICULAR SYSTOLIC PRESSURE OF 50-55 mmHg. TECHNOLOGIST: Tessa OZUNA
--- NOTE | 2020-11-09 09:35 | RAD REPORT ---
EXAM DESCRIPTION: US - Abdomen Exam Complete - 11/09/2020 8:45 am CLINICAL HISTORY: elevated LFTs, ?cirrhosis, eval CBD COMPARISON: Renal Ultrasound-Complete dated 10/30/2020; Chest Abd Pelvis Wo Con dated 11/06/2020 FINDINGS: Gallbladder size is normal. No pericholecystic fluid confirmed. Gallbladder wall is upper normal in thickness. No stones or sludge confirmed. Common bile duct is normal with no common duct st one identified. Liver shows a nodular liver capsule contour. No focal liver parenchymal lesion. Liver is 15 cm in max imum dimension. No portal vein abnormality identified. Spleen is 13 cm. The pancreas is grossly normal but partially obscured by bowel. No hydronephrosis or suspicious mass in either kidney. No aorta or IVC abnormality seen. Trace amount of ascites present. This is not a drainable quantity. No bulky lymphadenopathy. IMPRESSION: No gallbladder or biliary tree abnormality identified. Gallbladder wall thickness is upp er normal. No focal liver lesion. There is a nodular contour to the capsule. Cirrhosis or other hepatic parenchy mal disease would be possible. Pancreas is too obscured by bowel gas to allow all full assessment. Trace amount of ascites is present. This is non drainable quantity.
[2020-11-09] MEDS: CALCITROL 0.25 MCG CAP PO SCH (10:29)
[2020-11-09] MEDS: ONDANSETRON 4 MG/2 ML VIAL IV PRN (10:29)
[2020-11-09] MEDS: PANTOPRAZOLE 40 MG INJ IVP SCH ×2 (10:29→20:31)
[2020-11-09] MEDS: levoFLOXacin 250 MG TAB PO SCH (10:30)
[2020-11-09] MEDS: VITAMIN D 5,000 UNIT CAP PO SCH (10:30)
--- NOTE | 2020-11-09 11:00 | P.PN ---
Subjective Date of Service: 11/09/20 Chief Complaint: osteomyelitis Patient seen and examined at bedside: Patient has significant bruising 2 the left side of his body, Patient denies any falls at home prior to recent admission and states he does not know how he got all of these bruises. The x- rays were negative for any fractures. Review of Systems 10-point ROS is otherwise unremarkable Physical Examination - Vital Signs Temperature: 97.9 F Blood Pressure: 125/77 Pulse: 114 Respirations: 19 Pulse Ox (%): 91 - Physical Exam General: Alert, In no apparent distress, Oriented x3 Neck: Supple, 2+ carotid pulse no bruit Respiratory: Crackles/rales (bilaterally ) Cardiovascular: No edema, Normal pulses, Regular rate/rhythm Capillary refill: <2 Seconds Gastrointestinal: Normal bowel sounds, Soft and benign Musculoskeletal: Other (Left BKA stump with ulcer. ) Integumentary: Other (Significant bruising to the left side of patient's body. Palpable mass most likely hematoma near 1st intercostal space on the patient's +.) Neurological: Normal gait - Studies Temp Pulse Resp BP Pulse Ox 97.9 F 114 H 19 125/77 91 11/09/20 08:00 11/09/20 08:00 11/09/20 08:00 11/09/20 08:00 11/09/20 08:00 Active Medications Albuterol Sulfate (Albuterol 2.5 Mg/3 Ml Neb Lorena) 2.5 mg NEB [id number] PRN PRN Reason: SHORTNESS OF BREATH Calcitriol (Calcitrol 0.25 Mcg Cap) 0.5 mcg PO DAILY [facility] Last Admin: 11/09/20 10:29 Dose: 0.5 mcg Documented by: Cholecalciferol (Vitamin D 5,000 Unit Cap) 5,000 unit PO DAILY [facility] Last Admin: 11/09/20 10:30 Dose: 5,000 unit Documented by: Hydromorphone HCl (Hydromorphone Hcl 0.5 Mg/0.5 Ml Inj) 0.5 mg IV Q4H PRN PRN Reason: Pain scale 5-7 (Moderate) Last Admin: 11/09/20 10:36 Dose: 0.5 mg Documented by: Daptomycin 250 mg/ Sodium (Chloride) 100 mls @ 200 mls/hr IVPB Q48H [facility]; Protocol Last Admin: 11/08/20 11:00 Dose: 100 mls Documented by: Insulin Human Regular (Insulin -Regular Human 50 Unit/0.5 Ml Ml) 0 unit SQ ACHS [facility]; Protocol Last Admin: 11/09/20 07:30 Dose: Not Given Documented by: Levofloxacin (Levofloxacin 250 Mg Tab) 250 mg PO Q48H [facility] Last Admin: 11/09/20 10:30 Dose: 250 mg Documented by: Ondansetron HCl (Ondansetron 4 Mg/2 Ml Vial) 4 mg IV Q6HP PRN PRN Reason: NAUSEA / VOMITING Last Admin: 11/09/20 10:29 Dose: 4 mg Documented by: Pantoprazole Sodium (Pantoprazole 40 Mg Inj) 40 mg IVP Q12HR [facility]; Protocol Last Admin: 11/09/20 10:29 Dose: 40 mg Documented by: Sodium Chloride (Flush Normal Saline 10 Ml) 10 ml IV BID [facility] Last Admin: 11/09/20 09:00 Dose: 10 ml Documented by: Sodium Chloride (Sodium Chloride 0.9% 10ml Inj) 10 ml IV UD PRN PRN Reason: Diluant Last Admin: 11/08/20 20:40 Dose: 10 ml Documented by: Laboratory Last Values WBC 12.30 K/uL (4.3-10.9) H D 11/06/20 18:24 RBC 2.59 M/uL (4.33-5.43) L 11/06/20 18:24 Hgb 7.1 g/dL (13.6-17.9) L* 11/06/20 18:24 Hct 22.0 % (39.6-49.0) L 11/06/20 18:24 MCV 85.2 fL (80-100) D 11/06/20 18:24 MCH 27.4 pg (27.0-35.0) 11/06/20 18:24 MCHC 32.1 g/dL (32.0-36.0) 11/06/20 18:24 RDW 15.3 % (12.1-15.2) H 11/06/20 18:24 Plt Count 178 K/uL (152-406) D 11/06/20 18:24 MPV 9.4 fL (7.6-11.3) 11/06/20 18:24 Neutrophils % 81.8 % (41.7-73.7) H 11/06/20 18:24 Lymphocytes % 9.1 % (15.3-44.8) L 11/06/20 18:24 Monocytes % 8.7 % (3.3-12.3) 11/06/20 18:24 Eosinophils % 0.1 % (0-4.4) 11/06/20 18:24 Basophils % 0.3 % (0-1.3) 11/06/20 18:24 Absolute Neutrophils 10.0 K/uL (1.8-8.0) H 11/06/20 18:24 Absolute Lymphocytes 1.1 K/uL (0.7-4.9) 11/06/20 18:24 Absolute Monocytes 1.1 K/uL (0.1-1.3) 11/06/20 18:24 Absolute Eosinophils 0.0 K/uL (0-0.5) 11/06/20 18:24 Absolute Basophils 0.0 K/uL (0-0.5) 11/06/20 18:24 PT 12.5 SECONDS (9.5-12.5) 11/06/20 18:24 INR 1.09 11/06/20 18:24 APTT 28.2 SECONDS (24.3-36.9) 11/06/20 18:24 pH 7.36 (7.35-7.45) 11/06/20 18:39 pCO2 34.6 mmHG (35-45) L 11/06/20 18:39 pO2 59.1 mmHG (75-100) L 11/06/20 18:39 HCO3 19.1 mmol/L (22-28) L 11/06/20 18:39 Base Excess -5.3 mmol/L 11/06/20 18:39 Oxyhemoglobin 83.5 % (94-97) L 11/06/20 18:39 ABG O2 Sat (Measured) 86.3 % (92-98.5) L 11/06/20 18:39 ABG Carboxyhemoglobin 2.0 % (0-1.5) H 11/06/20 18:39 ABG Methemoglobin 1.2 % (0-1.5) 11/06/20 18:39 Other Total Hgb 7.2 g/dl (12-18) L 11/06/20 18:39 Inspired O2 40.0 % 11/06/20 18:39 Sodium 139 mmol/L (136-145) 11/06/20 18:24 Potassium 5.4 mmol/L (3.5-5.1) H 11/06/20 18:24 Chloride 108 mmol/L (98-107) H 11/06/20 18:24 Carbon Dioxide 20 mmol/L (21-32) L 11/06/20 18:24 BUN 67 mg/dL (7-18) H D 11/06/20 18:24 Creatinine 3.18 mg/dL (0.55-1.3) H D 11/06/20 18:24 Estimated GFR 20 mL/min (=/>90) L 11/06/20 18:24 Glucose 179 mg/dL (74-106) H 11/06/20 18:24 Lactic Acid 2.0 mmol/L (0.4-2.0) 11/06/20 19:46 Calcium 8.9 mg/dL (8.5-10.1) 11/06/20 18:24 Magnesium 2.4 mg/dL (1.8-2.4) 11/06/20 18:24 Total Bilirubin 0.6 mg/dL (0.2-1.0) 11/06/20 18:24 Direct Bilirubin 0.3 mg/dL (0-0.2) H 11/06/20 18:24 AST 140 U/L (15-37) H D 11/06/20 18:24 ALT 70 U/L (12-78) 11/06/20 18:24 Alkaline Phosphatase 172 U/L (45-117) H 11/06/20 18:24 Troponin I 1.13 ng/mL (0.0-0.045) H* 11/06/20 18:24 NT-Pro-B Natriuret Pep 37396 pg/mL (<125) H 11/06/20 18:24 Serum Total Protein 7.3 g/dL (6.4-8.2) 11/06/20 18:24 Albumin 2.5 g/dL (3.4-5.0) L 11/06/20 18:24 Globulin 4.8 g/dL (2.3-3.5) H 11/06/20 18:24 Albumin/Globulin Ratio 0.5 (1.1-1.8) L 11/06/20 18:24 Lipase 89 U/L (73-393) 11/06/20 18:24 Procalcitonin 0.25 ng/mL (<0.050) H 11/06/20 19:46 Vancomycin Trough 11.3 ug/mL (5.0-20.0) 11/06/20 18:24 Influenza Type A RNA Negative (NEGATIVE) 11/06/20 18:24 Influenza Type B RNA Negative (NEGATIVE) 11/06/20 18:24 SARS-CoV-2 RNA (RT-PCR) Negative (NEGATIVE) 11/06/20 18:24 ABO/Rh B POSITIVE 11/06/20 19:46 Solid Phase Ab Screen Negative 11/06/20 19:46 Crossmatch See Detail 11/06/20 19:46 Assessment And Plan - Plan Antibiotics: daptomycin start: 11/08 stop: 12/12 Levaquin start: 11/09 stop: 12/12 Assessment: -osteomyelitis of left BKA stump -bilateral multifocal pneumonia -diabetes type 2 -CKD stage 4 -chronic tobacco user -anemia Plan: -MRI from previous visit confirmed osteomyelitis left BKA stump. Patient on the antibiotic course of 6 weeks. Patient switched from vancomycin to daptomycin due to worsening kidney function. Vancomycin trough goal of 10-15. -chest x-ray on 11/09 shows worsening pneumonia-continue current antibiotic treatments. Recommend pulmonology consults and sputum culture. The patient has a palpable mass near 1st intercostal space on left side-imaging does not mention anything about this. Recommend further studies. -any deficiency anemia: Maintain hemoglobin of at least 7.0 recommend transfusion hemoglobin drops below 7.0. -renally dose antibiotics situations worsening CKD. -medical management per primary team -continue monitor CBC and BMP -continue to monitor for signs of infection Plan of care discussed with Dr. Payton Thank you for consultation
[2020-11-09] MEDS: ENSURE ENLIVE 237 ML CAN PO SCH (20:31)
[2020-11-09] MEDS: SODIUM CHLORIDE 0.9% 10ML INJ IV PRN (20:31)
--- NOTE | 2020-11-09 20:32 | CON ---
Date of Consultation: 11/09/2020 History Of Present Illness: This is my first time seeing this patient to my knowledge. He is a 69-y ear-old male who unfortunately has had some problems with his chest. He has had a CT scan, which dem onstrates no surrounding mass, but does demonstrate a fracture of the proximal aspect of the clavicle on the left side. Physical Examination: He does have some prominence of the clavicle on the left side as well as fairly extensive bruising, b ut on physical examination of clavicle, he does have some pain. He is otherwise neurovascularly inta ct. Review Of Studies: Demonstrated a CT scan with this fracture, but no sign of posterior displacement. Assessment And Plan: At this time, I spoke with both he and his family. I think we should treat thi s symptomatically with a sling as needed for comfort. Otherwise nonoperative management. All of the ir questions have otherwise been answered. CHITO Voice ID: [id number] Report ID: [id number]
[2020-11-09] MEDS: GABAPENTIN 100 MG CAP PO SCH (21:00)
--- NOTE | 2020-11-09 21:06 | P.PN ---
Subjective Date of Service: 11/09/20 Chief Complaint: osteomyelitis Subjective: Other (reports breathing is slightly improved. having pain in L clavicle, denies any recent trauma/fall) Review of Systems 10-point ROS is otherwise unremarkable Physical Examination - Vital Signs Temperature: 98.9 F Blood Pressure: 172/86 Pulse: 100 Respirations: 18 Pulse Ox (%): 96 Assessment & Plan Physician Review Additional Text: Physical Exam General: Alert, In no apparent distress, Oriented x3 HEENT: Mucous membr. moist/pink, sclera anicteric Respiratory: Diminished, Crackles/rales bilaterally Cardiovascular: No edema, Regular rate/rhythm, Normal S1 S2 Gastrointestinal: Soft and benign, Non-distended, No tenderness Musculoskeletal: L BKA, ulcer with dressing in place. L sternoclavicular swelling and tenderness Skin: multiple large scattered ecchymosis on patients L chest, shoulder, abdomen, back Problem list Pneumonia Pulmonary edema CALDERON on CKD 4 L clavicular fracture Left BKA stump ulcer, with osteomyelitis Diabetes mellitus, [id number] HTN Chronic tobacco use Acute on Chronic anemia, iron deficiency and heme+ stool ?Hep C Patient with diffuse bilateral lung opacities needing oxygen supplementation Pneumonia versus pulmonary edema. Procalcitonin mildly elevated Cardiology input appreciated. Elevated troponin deemed secondary to CALDERON/CKD, hypoxia and anemia. Patient also has early or mild findings of liver cirrhosis with elevated liver enzymes. - discussed with family today, report they were just told a few days ago that patient was postive for Hep C - tested in [place], they are unsure of results other than "positive". elevated LFTs possibly due to congestion ID consulted - continue levaquin to cover for pneumonia, Vanc changed to dapto due to concern for volume overload with vanc volume CALDERON on CKD slowly improving, nephrology consulted. Lasix discontinued. Creatinine trended down after albumin infusion. chronic iron deficiency anemia, s/p 1 unit PRBC transfusion. Pain management as needed. Dr. Goldstein input appreciated - EGD done showing mild atrophic gastritis. Continue protonix multiple ecchymosis and L clavicle highly suspicious for recent trauma, however family and patient deny any fall/trauma. unclear when patient fractured L clavicle - patient and family report first noticing ecchymosis on Sunday at home. Deny any trauma/fall when patient was a t home. They are upset that neither they nor the patient were told of the fracture. They are concerned he had the injury while in the hospital and accusing hospital staff of "covering it up". review of EMR reveals ER visit on 11/06 was first time ecchymosis and L clavicle fracture was first noted reviewed with radiology - unable to verify presence of clavicle fracture on chest x-rays from last admission and current admission. only seen on CT Ortho consulted Time Spent Managing Pts Care (In Minutes): 35
--- NOTE | 2020-11-09 21:35 | P.PN ---
Date of Service: 11/09/20 Vital Signs Temp Pulse Resp BP Pulse Ox 98.9 F 100 H 18 172/86 H 96 11/09/20 21:14 11/09/20 21:14 11/09/20 21:14 11/09/20 21:14 11/09/20 21:14 Medications Albuterol Sulfate (Albuterol 2.5 Mg/3 Ml Neb Lorena) 2.5 mg NEB S4OWIOR PRN PRN Reason: SHORTNESS OF BREATH Amlodipine Besylate (Amlodipine 2.5 Mg Tab) 2.5 mg PO DAILY [facility] Calcitriol (Calcitrol 0.25 Mcg Cap) 0.5 mcg PO DAILY [facility] Last Admin: 11/09/20 10:29 Dose: 0.5 mcg Documented by: Calcitriol (Calcitrol 0.25 Mcg Cap) 0.5 mcg PO DAILY [facility] Carvedilol (Carvedilol 12.5 Mg Tab) 25 mg PO BID 6AM 6PM [facility] Cholecalciferol (Vitamin D 5,000 Unit Cap) 5,000 unit PO DAILY [facility] Last Admin: 11/09/20 10:30 Dose: 5,000 unit Documented by: Cholecalciferol (Vitamin D 5,000 Unit Cap) 5,000 unit PO DAILY [facility] Collagenase (Collagenase 30 Gm Ointment) 1 appl TOP DAILY [facility] Gabapentin (Gabapentin 100 Mg Cap) 100 mg PO TID [facility] Home Med (Lactobacillus Acidophilus [Acidophilus]) 1 each PO TID [facility] Hydralazine HCl (Hydralazine Hcl 25 Mg Tablet) 25 mg PO BID [facility] Hydromorphone HCl (Hydromorphone Hcl 0.5 Mg/0.5 Ml Inj) 0.5 mg IV Q4H PRN PRN Reason: Pain scale 5-7 (Moderate) Last Admin: 11/09/20 20:30 Dose: 0.5 mg Documented by: Daptomycin 250 mg/ Sodium (Chloride) 100 mls @ 200 mls/hr IVPB Q48H [facility]; P rotocol Last Admin: 11/08/20 11:00 Dose: 100 mls Documented by: Insulin Human Regular (Insulin -Regular Human 50 Unit/0.5 Ml Ml) 0 unit SQ ACHS [facility]; Protocol Last Admin: 11/09/20 20:26 Dose: Not Given Documented by: Levofloxacin (Levofloxacin 250 Mg Tab) 250 mg PO Q48H [facility] Last Admin: 11/09/20 10:30 Dose: 250 mg Documented by: Nutritional Formula (Ensure Enlive 237 Ml Can) 237 ml PO BID [facility] Last Admin: 11/09/20 20:31 Dose: 237 ml Documented by: Ondansetron HCl (Ondansetron 4 Mg/2 Ml Vial) 4 mg IV Q6HP PRN PRN Reason: NAUSEA / VOMITING Last Admin: 11/09/20 10:29 Dose: 4 mg Documented by: Pantoprazole Sodium (Pantoprazole 40 Mg Inj) 40 mg IVP Q12HR [facility]; Protocol Last Admin: 11/09/20 20:31 Dose: 40 mg Documented by: Sodium Bicarbonate (Sodium Bicarb 325 Mg Tab) 650 mg PO TIDWM [facility] Sodium Chloride (Flush Normal Saline 10 Ml) 10 ml IV BID [facility] Last Admin: 11/09/20 20:31 Dose: 10 ml Documented by: Sodium Chloride (Sodium Chloride 0.9% 10ml Inj) 10 ml IV UD PRN PRN Reason: Diluant Last Admin: 11/09/20 20: Dose: 10 ml Documented by: Lab Results (last 24 hrs) 11/06/20 19:46: ABO/Rh B POSITIVE, Solid Phase Ab Screen Negative, Crossmatch See Detail Microbiology Results 11/06/20 19:37 Blood - Blood Aerobic Blood Culture - Preliminary No growth in 24 hours. 11/06/20 19:37 Blood - Blood Anaerobic Blood Culture - Preliminary No growth in 24 hours. 11/06/20 19:46 Blood - Blood Aerobic Blood Culture - Preliminary No growth in 24 hours. 11/06/20 19:46 Blood - Blood Anaerobic Blood Culture - Preliminary No growth in 24 hours. Assessment/ Plan: Nephrology No acute cardiac or pulmonary complaints. No CP or SOB. Malaise No acute events overnight. Vitals, medications, blood work and imaging reviewed in the chart. NAD. MMM. Neck supple. CTA. RRR. Soft Abd. No C/C/E. No rash. AAO. Normal Speech. Left BKA. A/P: Continue the current POC and Medications other than the changes listed. AM Labs PRN. Recommend daily weight. Please see the orders for complete details. CALDERON likely due hypovolemia CKD IV -No NSAIDs -Give a liter of 1/2NS. Hyperkalemia -Monitor potassium Acidosis -Start oral bicarb Hypocalcemia -Continue Vitamin D HTN with tachycardia -Start Metoprolol 25mg BID Moderate malnutrition -Encourage nutrition Anemia in chronic illness Iron deficiency -Agree with PRBC transfusion Osteomyelitis of tibia -Continue abx
[2020-11-09] MEDS ORDERED: BENZONATATE 100 MG CAP PO PRN (21:55)
[2020-11-09] MEDS: SODIUM BICARB 325 MG TAB PO SCH (21:57)
[2020-11-09] MEDS: METOPROLOL TAR 25 MG TAB PO SCH (21:57)
[2020-11-09] MEDS: HYDRALAZINE HCL 25 MG TABLET PO SCH (21:57)
[2020-11-09] MEDS ORDERED: NACHLORIDE 0.45% 1,000 ML IV SCH (22:00)
[2020-11-09] MEDS: MELATONIN 5 MG TABLET PO PRN (22:07)
[2020-11-10] MEDS: HYDROMORPHONE HCL 0.5 MG/0.5 ML INJ IV PRN (00:41)
[2020-11-10] MEDS ORDERED: LORazepam 2 MG/ML VIAL IV ONE (03:46)
[2020-11-10 04:13] LABS: Urine Appearance CLEAR (Clear); Urine Bilirubin NEGATIVE (Negative); Urine Blood 1+ (Negative); Urine Color YELLOW (Yellow); Urine Glucose TRACE (Negative); Urine Protein 3+ (Negative); Urine Specific Gravity 1.015 (1.005-1.030); Urine Urobilinogen 0.2 mg/dL (0.2-1.0); Urine pH 5.5 (5.0-7.0)
[2020-11-10] MEDS: METOPROLOL TAR 25 MG TAB PO SCH ×2 (05:12→18:10)
[2020-11-10 05:46] LABS: Urine Bacteria <20 /HPF (NONE SEEN); Urine RBC NONE SEEN /HPF (NONE SEEN); Urine Urothelial Cells <5 /HPF (NONE SEEN); Urine Yeast FEW (NONE SEEN)
[2020-11-10 05:51] LABS: Absolute Lymphocytes (CBC) 0.4 K/uL (0.7-4.9); Basophils % 0.1 % (0-1.3); Lymphocytes % 2.4 % (15.3-44.8); MPV 8.5 fL (7.6-11.3); RBC Red Blood Cell Count 3.24 M/uL (4.33-5.43)
[2020-11-10 06:27] LABS: Albumin 2.2 g/dL (3.4-5.0); Bilirubin Total 1.4 mg/dL (0.2-1.0); Phosphorus 4.5 mg/dL (2.5-4.9); Potassium 4.1 mmol/L (3.5-5.1); Protein, Total 6.9 g/dL (6.4-8.2)
--- NOTE | 2020-11-10 07:23 | RAD REPORT ---
EXAM DESCRIPTION: Rhonda Single View11/10/2020 7:09 am CLINICAL HISTORY: Worsening hypoxia COMPARISON: November 09, 2020 FINDINGS: Mild worsening in extensive bilateral pulmonary opacities. Heart is mildly enlarged. PICC line place. Small bilateral pleural effusions IMPRESSION: Mild worsening in extensive bilateral pulmonary opacities
[2020-11-10] MEDS: INSULIN -REGULAR HUMAN 50 UNIT/0.5 ML ML SQ SCH ×4 (07:30→21:00)
[2020-11-10] MEDS ORDERED: carvediloL 25 MG TAB PO SCH (08:00)
[2020-11-10] MEDS ORDERED: CALCITROL 0.25 MCG CAP PO SCH (09:00)
[2020-11-10] MEDS: ENSURE ENLIVE 237 ML CAN PO SCH ×2 (09:00→21:38)
[2020-11-10] MEDS ORDERED: VITAMIN D 5,000 UNIT CAP PO SCH (09:00)
[2020-11-10 09:24] LABS: Blood Morphology Comment NOT SEEN (NOT SEEN); Platelet Estimate ADEQ; White Blood Cell Scan OK (OK)
[2020-11-10] MEDS: HYDRALAZINE HCL 25 MG TABLET PO SCH ×2 (09:48→21:23)
[2020-11-10] MEDS: CALCITROL 0.25 MCG CAP PO SCH (09:49)
[2020-11-10] MEDS: AMLODIPINE 2.5 MG TAB PO SCH (09:49)
[2020-11-10] MEDS: SODIUM BICARB 325 MG TAB PO SCH ×3 (09:49→18:09)
[2020-11-10] MEDS: VITAMIN D 5,000 UNIT CAP PO SCH (09:49)
[2020-11-10] MEDS: GABAPENTIN 100 MG CAP PO SCH ×3 (09:49→21:23)
[2020-11-10] MEDS: LACTOBACILLUS/ACIDOPHILUS TAB PO SCH ×3 (09:49→21:23)
[2020-11-10] MEDS: PANTOPRAZOLE 40 MG INJ IVP SCH ×2 (09:50→21:24)
[2020-11-10] MEDS ORDERED: RSI MEDICATION KIT IV ONE (11:19)
[2020-11-10] MEDS ORDERED: FLUMAZENIL 0.1 MG/ML (5 mL VIAL) IV ONE (11:22)
[2020-11-10] MEDS ORDERED: NALOXONE HCL 2 MG/2 ML VIAL ONE (12:00)
[2020-11-10] MEDS: DAPTOMYCIN IVPB SCH (13:13)
[2020-11-10] MEDS: NA CHLORIDE 0.9% IVPB SCH (13:13)
[2020-11-10 13:16] LABS: Albumin 2.3 g/dL (3.4-5.0); Bilirubin Total 1.3 mg/dL (0.2-1.0); Magnesium 2.4 mg/dL (1.8-2.4); Potassium 4.1 mmol/L (3.5-5.1); Protein, Total 6.5 g/dL (6.4-8.2)
[2020-11-10] MEDS ORDERED: NALOXONE HCL 2 MG/2 ML VIAL IV ONE (14:20)
[2020-11-10] MEDS: ONDANSETRON 4 MG/2 ML VIAL IV PRN (14:26)
--- NOTE | 2020-11-10 14:37 | P.PN ---
Subjective Date of Service: 11/10/20 Chief Complaint: osteomyelitis Patient seen and examined at bedside: According to family patient has a history of hepatitis-C, awaiting hepatitis panel for further investigation. Patient has leukocytosis despite being on broad-spectrum antibiotics. Increase in white blood cell count could be due to trauma patient experienced outpatient resulting in left collarbone fx and extensive bruising to the neck and upper extremity. Review of Systems 10-point ROS is otherwise unremarkable Physical Examination - Vital Signs Temperature: 97.7 F Blood Pressure: 179/98 Pulse: 96 Respirations: 22 Pulse Ox (%): 91 - Studies Temp Pulse Resp BP Pulse Ox 97.7 F 96 H 22 H 179/98 H 91 11/10/20 08:00 11/10/20 09:49 11/10/20 08:00 11/10/20 09:49 11/10/20 08:00 Laboratory Last Values WBC 12.30 K/uL (4.3-10.9) H D 11/06/20 18:24 RBC 2.59 M/uL (4.33-5.43) L 11/06/20 18:24 Hgb 7.1 g/dL (13.6-17.9) L* 11/06/20 18:24 Hct 22.0 % (39.6-49.0) L 11/06/20 18:24 MCV 85.2 fL (80-100) D 11/06/20 18:24 MCH 27.4 pg (27.0-35.0) 11/06/20 18:24 MCHC 32.1 g/dL (32.0-36.0) 11/06/20 18:24 RDW 15.3 % (12.1-15.2) H 11/06/20 18:24 Plt Count 178 K/uL (152-406) D 11/06/20 18:24 MPV 9.4 fL (7.6-11.3) 11/06/20 18:24 Neutrophils % 81.8 % (41.7-73.7) H 11/06/20 18:24 Lymphocytes % 9.1 % (15.3-44.8) L 11/06/20 18:24 Monocytes % 8.7 % (3.3-12.3) 11/06/20 18:24 Eosinophils % 0.1 % (0-4.4) 11/06/20 18:24 Basophils % 0.3 % (0-1.3) 11/06/20 18:24 Absolute Neutrophils 10.0 K/uL (1.8-8.0) H 11/06/20 18:24 Absolute Lymphocytes 1.1 K/uL (0.7-4.9) 11/06/20 18:24 Absolute Monocytes 1.1 K/uL (0.1-1.3) 11/06/20 18:24 Absolute Eosinophils 0.0 K/uL (0-0.5) 11/06/20 18:24 Absolute Basophils 0.0 K/uL (0-0.5) 11/06/20 18:24 PT 12.5 SECONDS (9.5-12.5) 11/06/20 18:24 INR 1.09 11/06/20 18:24 APTT 28.2 SECONDS (24.3-36.9) 11/06/20 18:24 pH 7.36 (7.35-7.45) 11/06/20 18:39 pCO2 34.6 mmHG (35-45) L 11/06/20 18:39 pO2 59.1 mmHG (75-100) L 11/06/20 18:39 HCO3 19.1 mmol/L (22-28) L 11/06/20 18:39 Base Excess -5.3 mmol/L 11/06/20 18:39 Oxyhemoglobin 83.5 % (94-97) L 11/06/20 18:39 ABG O2 Sat (Measured) 86.3 % (92-98.5) L 11/06/20 18:39 ABG Carboxyhemoglobin 2.0 % (0-1.5) H 11/06/20 18:39 ABG Methemoglobin 1.2 % (0-1.5) 11/06/20 18:39 Other Total Hgb 7.2 g/dl (12-18) L 11/06/20 18:39 Inspired O2 40.0 % 11/06/20 18:39 Sodium 139 mmol/L (136-145) 11/06/20 18:24 Potassium 5.4 mmol/L (3.5-5.1) H 11/06/20 18:24 Chloride 108 mmol/L (98-107) H 11/06/20 18:24 Carbon Dioxide 20 mmol/L (21-32) L 11/06/20 18:24 BUN 67 mg/dL (7-18) H D 11/06/20 18:24 Creatinine 3.18 mg/dL (0.55-1.3) H D 11/06/20 18:24 Estimated GFR 20 mL/min (=/>90) L 11/06/20 18:24 Glucose 179 mg/dL (74-106) H 11/06/20 18:24 Lactic Acid 2.0 mmol/L (0.4-2.0) 11/06/20 19:46 Calcium 8.9 mg/dL (8.5-10.1) 11/06/20 18:24 Magnesium 2.4 mg/dL (1.8-2.4) 11/06/20 18:24 Total Bilirubin 0.6 mg/dL (0.2-1.0) 11/06/20 18:24 Direct Bilirubin 0.3 mg/dL (0-0.2) H 11/06/20 18:24 AST 140 U/L (15-37) H D 11/06/20 18:24 ALT 70 U/L (12-78) 11/06/20 18:24 Alkaline Phosphatase 172 U/L (45-117) H 11/06/20 18:24 Troponin I 1.13 ng/mL (0.0-0.045) H* 11/06/20 18:24 NT-Pro-B Natriuret Pep 31911 pg/mL (<125) H 11/06/20 18:24 Serum Total Protein 7.3 g/dL (6.4-8.2) 11/06/20 18:24 Albumin 2.5 g/dL (3.4-5.0) L 11/06/20 18:24 Globulin 4.8 g/dL (2.3-3.5) H 11/06/20 18:24 Albumin/Globulin Ratio 0.5 (1.1-1.8) L 11/06/20 18:24 Lipase 89 U/L (73-393) 11/06/20 18:24 Procalcitonin 0.25 ng/mL (<0.050) H 11/06/20 19:46 Vancomycin Trough 11.3 ug/mL (5.0-20.0) 11/06/20 18:24 Influenza Type A RNA Negative (NEGATIVE) 11/06/20 18:24 Influenza Type B RNA Negative (NEGATIVE) 11/06/20 18:24 SARS-CoV-2 RNA (RT-PCR) Negative (NEGATIVE) 11/06/20 18:24 ABO/Rh B POSITIVE 11/06/20 19:46 Solid Phase Ab Screen Negative 11/06/20 19:46 Crossmatch See Detail 11/06/20 19:46 Assessment And Plan - Plan Antibiotics: daptomycin start: 11/08 stop: 12/12 Levaquin start: 11/09 stop: 12/12 Assessment: -osteomyelitis of left BKA stump -bilateral multifocal pneumonia vs pulmonary edema -leukocytosis -diabetes type 2 -CKD stage 4 -chronic tobacco user -anemia Plan: -MRI from previous visit confirmed osteomyelitis left BKA stump. Patient on the antibiotic course of 6 weeks. Patient switched from vancomycin to daptomycin due to worsening kidney function. Vancomycin trough goal of 10-15. -chest x-ray and chest CT shows bilateral pulmonary opacities, pneumonia versus pulmonary edema. Continue current antibiotic treatments. Recommend pulmonology consults and sputum culture. -leukocytosis despite being on broad-spectrum antibiotics. Increase in white blood cell count could be due to trauma patient experienced outpatient resulting in left collarbone fx and extensive bruising to the neck and upper extremity. Continue to monitor closely. -iron deficiency anemia: Maintain hemoglobin of at least 7.0 recommend transfusion hemoglobin drops below 7.0. -renally dose antibiotics situations worsening CKD. -medical management per primary team -continue monitor CBC and BMP -continue to monitor for signs of infection Plan of care discussed with Dr. Payton Thank you for consultation
[2020-11-10] MEDS ORDERED: ETOMIDATE 20 MG/10 ML VIAL IV ONE (16:57)
[2020-11-10] MEDS ORDERED: NA CHLORIDE 0.9% 1,000 ML IV SCH (18:00)
[2020-11-10] MEDS: COLLAGENASE 30 GM OINTMENT TOP SCH (18:10)
--- NOTE | 2020-11-10 20:49 | P.PN ---
Subjective Date of Service: 11/10/20 Chief Complaint: osteomyelitis Subjective: Other (code blue called for patient this morning. patient found with nasal cannula off with significant hypoxia and unresponsive. Patient had a pulse, and improved with oxygenation, narcan x2, and flumazenil. Flumazenil seemed to lead to most improvement in mentation) Review of Systems 10-point ROS is otherwise unremarkable Physical Examination - Vital Signs Temperature: 98.0 F Blood Pressure: 162/74 Pulse: 93 Respirations: 24 Pulse Ox (%): 91 Assessment & Plan Physician Review Additional Text: Physical Exam General: AOx3, mild distress HEENT: Mucous membr. moist/pink, sclera anicteric Respiratory: Diminished, Crackles/rales bilaterally, on 10L NC Cardiovascular: No edema, Regular rate/rhythm, Normal S1 S2 Gastrointestinal: Soft and benign, Non-distended, No tenderness Musculoskeletal: L BKA, ulcer healing. L sternoclavicular swelling and tenderness Skin: multiple large scattered ecchymosis on patients L chest, & L shoulder, abdomen Problem list Pneumonia Pulmonary edema CALDERON on CKD 4 L clavicular fracture Left BKA stump ulcer, with osteomyelitis Diabetes mellitus, xio-tvsjyts-fteqyibit HTN Chronic tobacco use Acute on Chronic anemia, iron deficiency and heme+ stool ?Hep C Patient with diffuse bilateral lung opacities needing oxygen supplementation Pneumonia versus pulmonary edema. Procalcitonin mildly elevated, leukocytosis Cardiology input appreciated. Elevated troponin deemed secondary to CALDERON/CKD, hypoxia and anemia. Patient also has early or mild findings of liver cirrhosis with elevated liver enzymes. - discussed with family, report they were just told a few days ago that patient was positive for Hep C - tested in [place], they are unsure of results other than "positive". elevated LFTs possibly due to congestion ID consulted - continue levaquin to cover for pneumonia, Vanc changed to dapto due to concern for volume overload CALDERON on CKD slowly improving, nephrology consulted. Lasix discontinued. Creatinine trended down after albumin infusion. patient with more hypoxia, and worsening opacities on CXR, concerned patient is having worsened pulm edema. Pulmonology consulted chronic iron deficiency anemia, s/p 1 unit PRBC transfusion. do not suspect TRALI, had b/l opacities prior to transfusion dc dilaudid, avoid ativan, consider tramadol if continues with pain Dr. Goldstein consulted - EGD done showing mild atrophic gastritis. Continue protonix multiple ecchymosis and L clavicle highly suspicious for recent trauma, however family and patient deny any fall/trauma. unclear when patient fractured L clavicle - patient and family report first noticing ecchymosis on Sunday at home. Deny any trauma/fall when patient was at home. review of EMR reveals ER visit on 11/06 was first time ecchymosis and L clavicle fracture were first noted reviewed with radiology - unable to verify presence of clavicle fracture on chest x-rays from last admission and current admission. only seen on CT Ortho consulted - recommend no surgical treatment, continue medical management, sling ordered Dispo: anticipate dc home, likely in 3-4 days Time Spent Managing Pts Care (In Minutes): 35
--- NOTE | 2020-11-10 23:27 | P.PN ---
Date of Service: 11/10/20 Vital Signs Temp Pulse Resp BP Pulse Ox 98.0 F 93 H 24 H 162/74 H 91 11/10/20 20:51 11/10/20 20:51 11/10/20 20:51 11/10/20 20:51 11/10/20 20:51 Medications Albuterol Sulfate (Albuterol 2.5 Mg/3 Ml Neb Lorena) 2.5 mg NEB [id number] PRN PRN Reason: SHORTNESS OF BREATH Amlodipine Besylate (Amlodipine 2.5 Mg Tab) 2.5 mg PO DAILY [facility] Last Admin: 11/10/20 09:49 Dose: 2.5 mg Documented by: Benzonatate (Benzonatate 100 Mg Cap) 100 mg PO TID PRN PRN Reason: COUGH Last Admin: 11/09/20 22:07 Dose: 100 mg Documented by: Calcitriol (Calcitrol 0.25 Mcg Cap) 0.5 mcg PO DAILY [facility] Last Admin: 11/10/20 09:49 Dose: 0.5 mcg Documented by: Cholecalciferol (Vitamin D 5,000 Unit Cap) 5,000 unit PO DAILY [facility] Last Admin: 11/10/20 09:49 Dose: 5,000 unit Documented by: Collagenase (Collagenase 30 Gm Ointment) 0 appl TOP DAILY [facility] Last Admin: 11/10/20 18:10 Dose: 1 ea Documented by: Gabapentin (Gabapentin 100 Mg Cap) 100 mg PO TID [facility] Last Admin: 11/10/20 21:23 Dose: 100 mg Documented by: Hydralazine HCl (Hydralazine Hcl 25 Mg Tablet) 25 mg PO BID [facility] Last Admin: 11/10/20 21:23 Dose: 25 mg Documented by: Daptomycin 250 mg/ Sodium (Chloride) 100 mls @ 200 mls/hr IVPB Q48H [facility]; Protocol Last Admin: 11/10/20 13:13 Dose: 100 mls Documented by: Insulin Human Regular (Insulin -Regular Human 50 Unit/0.5 Ml Ml) 0 unit SQ ACHS [facility]; Protocol Last Admin: 11/10/20 21:00 Dose: Not Given Documented by: Lactobacillus Acidoph/Bulgaricus (Lactobacillus/Acidophilus Tab) 1 tab PO TID [facility] Last Admin: 11/10/20 21:23 Dose: 1 tab Documented by: Levofloxacin (Levofloxacin 250 Mg Tab) 250 mg PO Q48H [facility] Last Admin: 11/09/20 10:30 Dose: 250 mg Documented by: Melatonin (Melatonin 5 Mg Tablet) 5 mg PO BEDTIME PRN PRN PRN Reason: INSOMNIA Last Admin: 11/09/20 22:07 Dose: 5 mg Documented by: Metoprolol Tartrate (Metoprolol Tar 25 Mg Tab) 25 mg PO BID 6AM 6PM [facility] Last Admin: 11/10/20 18:10 Dose: 25 mg Documented by: Nutritional Formula (Ensure Enlive 237 Ml Can) 237 ml PO BID [facility] Last Admin: 11/10/20 21:38 Dose: 237 ml Documented by: Ondansetron HCl (Ondansetron 4 Mg/2 Ml Vial) 4 mg IV Q6HP PRN PRN Reason: NAUSEA / VOMITING Last Admin: 11/10/20 14:26 Dose: 4 mg Documented by: Pantoprazole Sodium (Pantoprazole 40 Mg Inj) 40 mg IVP Q12HR [facility]; Protocol Last Admin: 11/10/20 21:24 Dose: 40 mg Documented by: Sodium Bicarbonate (Sodium Bicarb 325 Mg Tab) 650 mg PO TIDWM [facility] Last Admin: 11/10/20 18:09 Dose: 650 mg Documented by: Sodium Chloride (Flush Normal Saline 10 Ml) 10 ml IV BID [facility] Last Admin: 11/10/20 21:29 Dose: 10 ml Documented by: Sodium Chloride (Sodium Chloride 0.9% 10ml Inj) 10 ml IV UD PRN PRN Reason: Diluant Last Admin: 11/09/20 20:31 Dose: 10 ml Documented by: Microbiology Results 11/06/20 19:37 Blood - Blood Aerobic Blood Culture - Preliminary No growth in 24 hours. 11/06/20 19:37 Blood - Blood Anaerobic Blood Culture - Preliminary No growth in 24 hours. 11/06/20 19:46 Blood - Blood Aerobic Blood Culture - Preliminary No growth in 24 hours. 11/06/20 19:46 Blood - Blood Anaerobic Blood Culture - Preliminary No growth in 24 hours. Assessment/ Plan: Nephrology Malaise and weakness. No acute events overnight. Vitals, medications, blood work and imaging reviewed in the chart. NAD. MMM. Neck supple. CTA. RRR. Soft Abd. No C/C/E. No rash. AAO. Normal Speech. Left BKA. A/P: Continue the current POC and Medications other than the changes listed. AM Labs PRN. Recommend daily weight. Please see the orders for complete details. CALDERON likely due hypovolemia CKD IV -No NSAIDs Hyperkalemia -Monitor potassium Acidosis -Continue oral bicarb Hypocalcemia -Continue Vitamin D HTN with tachycardia -Continue Metoprolol 25mg BID Moderate malnutrition -Encourage nutrition Anemia in chronic illness Iron deficiency -PRBC transfusion PRN Osteomyelitis of tibia -Continue abx
[2020-11-11] MEDS ORDERED: TRAMADOL HCL 50 MG TAB PO ONE (00:03)
[2020-11-11] MEDS: MELATONIN 5 MG TABLET PO PRN ×2 (00:30→22:02)
[2020-11-11 01:20] LABS: Urine Appearance CLOUDY (Clear); Urine Bilirubin NEGATIVE (Negative); Urine Blood NEGATIVE (Negative); Urine Color YELLOW (Yellow); Urine Glucose TRACE (Negative); Urine Protein 2+ (Negative); Urine Specific Gravity 1.015 (1.005-1.030); Urine Urobilinogen 0.2 mg/dL (0.2-1.0)
[2020-11-11 01:31] LABS: Urine Bacteria <20 /HPF (NONE SEEN); Urine RBC NONE SEEN /HPF (NONE SEEN)
[2020-11-11 04:45] LABS: Absolute Lymphocytes (CBC) 0.4 K/uL (0.7-4.9); Basophils % 0.4 % (0-1.3); Hematocrit 26.9 % (39.6-49.0); Lymphocytes % 2.4 % (15.3-44.8); MPV 8.5 fL (7.6-11.3); RBC Red Blood Cell Count 3.15 M/uL (4.33-5.43)
[2020-11-11 05:14] LABS: Albumin 2.1 g/dL (3.4-5.0); Bilirubin Total 0.9 mg/dL (0.2-1.0); Magnesium 2.3 mg/dL (1.8-2.4); Potassium 3.7 mmol/L (3.5-5.1); Protein, Total 6.6 g/dL (6.4-8.2)
[2020-11-11] MEDS: METOPROLOL TAR 25 MG TAB PO SCH ×2 (06:23→16:58)
[2020-11-11] MEDS: INSULIN -REGULAR HUMAN 50 UNIT/0.5 ML ML SQ SCH ×4 (07:30→21:58)
--- NOTE | 2020-11-11 08:51 | RAD REPORT ---
EXAM DESCRIPTION: RAD - Chest Single View - 11/11/2020 4:47 am CLINICAL HISTORY: hypoxia Chest pain. COMPARISON: Chest Single View dated 11/10/2020; Chest Single View dated 11/09/2020; Chest Single View dated 11/06/2020; Chest Single View dated 11/02/2020 FINDINGS: Portable technique limits examination quality. Extensive bilateral pulmonary opacities show little overall change since comparative study from yeste rday. The heart is normal in size. Right-sided PICC line is stable in position. IMPRESSION: Stable chest since yesterday's examination.
[2020-11-11] MEDS: ENSURE ENLIVE 237 ML CAN PO SCH ×2 (09:00→21:58)
[2020-11-11] MEDS ORDERED: POTASSIUM CL SA 10 MEQ TAB PO ONE (09:00)
[2020-11-11] MEDS: LACTOBACILLUS/ACIDOPHILUS TAB PO SCH ×3 (09:14→20:51)
[2020-11-11] MEDS: AMLODIPINE 2.5 MG TAB PO SCH (09:14)
[2020-11-11] MEDS: SODIUM BICARB 325 MG TAB PO SCH ×3 (09:15→17:00)
[2020-11-11] MEDS: HYDRALAZINE HCL 25 MG TABLET PO SCH ×2 (09:15→20:51)
[2020-11-11] MEDS: levoFLOXacin 250 MG TAB PO SCH (09:15)
[2020-11-11] MEDS: CALCITROL 0.25 MCG CAP PO SCH (09:15)
[2020-11-11] MEDS: VITAMIN D 5,000 UNIT CAP PO SCH (09:15)
[2020-11-11] MEDS: GABAPENTIN 100 MG CAP PO SCH ×3 (09:15→20:51)
[2020-11-11] MEDS: FUROSEMIDE 40 MG/4 ML VIAL IV SCH (09:16)
[2020-11-11] MEDS: PANTOPRAZOLE 40 MG INJ IVP SCH (09:16)
[2020-11-11] MEDS: COLLAGENASE 30 GM OINTMENT TOP SCH (09:32)
[2020-11-11] MEDS ORDERED: FUROSEMIDE 40 MG/4 ML VIAL IV SCH (12:46)
--- NOTE | 2020-11-11 12:47 | P.CNS ---
Date of Consult: 11/11/20 Reason for Consult: Respiratory failure Chief Complaint: osteomyelitis respiratory failure History of Present Illness: Patient is 69 years of age multiple medical problems is being in the hospital also diagnosed with osteomyelitis was treated with home vancomycin oral levofloxacin discharged came back again unable to ambulate progressive worsening worsening shortness of breath bilateral pulmonary infiltrates seems to be little better since admission patient is an active smoker Allergies Penicillins Allergy (Intermediate, Verified 03/03/19 18:20) Rash Home Medications: Calcitrol [Rocaltrol*] 0.5 mcg PO DAILY #30 cap 11/03/20 Cholecalciferol (Vitamin D3) [Vitamin D 5,000 IU Cap*] 5,000 unit PO DAILY #30 cap 11/03/20 Collagenase [Santyl Ointment*] 1 appl TOP DAILY #1 tube 11/03/20 Gabapentin [Neurontin*] 100 mg PO TID #90 cap 11/03/20 Lactobacillus Acidophilus [Acidophilus] 1 each PO TID #90 capsule 11/03/20 Melatonin 10 mg PO BEDTIME PRN PRN #30 tablet 11/03/20 carvediloL [Coreg*] 25 mg PO BID 6AM 6PM #60 tab 11/03/20 glipiZIDE [Glucotrol*] 2.5 mg PO BID #60 tab 11/03/20 Hydralazine [Apresoline*] 25 mg PO BID #60 tab 11/04/20 Vancomycin/0.9 % Sod Chloride [Vanco 1.25 gm/250 ml-0.9% NaCl] 1.25 gm IV Q48H #21 plast..bag 11/04/20 levoFLOXacin [Levaquin*] 500 mg PO Q48H #21 tab 11/04/20 Acetaminophen 2 tab PO Q6H PRN 11/07/20 Amlodipine [Norvasc*] 1 tab PO DAILY 11/07/20 Doxycycline Hyclate 100 mg PO Q12H 11/07/20 Metformin HCl [Glucophage] 1,000 mg PO BID 11/07/20 Pantoprazole [Protonix Tab*] 1 tab PO BID 11/07/20 - Past Medical/Surgical History Diabetic: Yes -: Diabetes mellitus type 2, bac-ruumnar-pssiuxpsg -: DM-NIDDM -: Alcohol Abuse -: Tobacco Abuse -: Hypertension -: Chronic pain -: Chronic sacral ulcer -: Left Knee Surgery -: Left BKA with Prosthetic blood -: surg wnd on coccyx wound Psychosocial/ Personal History: He is , has 4 children. He is disabled. - Family History Father Medical History: Heart disease, Hypertension, Diabetes, Cancer Mother Medical History: Diabetes, Stroke - Social History Smoking Status: Current some day smoker Alcohol use: Yes CD- Drugs: No Caffeine use: No Place of Residence: Home Review of Systems General: Weakness Respiratory: Shortness of Breath Physical Examination Temp Pulse Resp BP Pulse Ox 97.4 F 87 20 132/80 92 11/11/20 08:00 11/11/20 09:16 11/11/20 08:00 11/11/20 09:16 11/11/20 08:00 General: Alert, Oriented x3, Mild distress Respiratory: Crackles/rales (Bilateral) Cardiovascular: No edema, Normal S1 S2 - Problems (1) Respiratory failure Current Visit: Yes Status: Acute Plan: Patient is 69 years of age admitted with worsening office chest x-ray appears to have progressive changes initially history of osteomyelitis hypoxic white count elevated DT shows bilateral changes chest x-ray suggestive of andres virus pneumonia currently on high-flow oxygen saturation 95% patient is on levofloxacin and daptomycin patient has normal left ventricular function r ecommend IV Lasix possible a steroid see if there is no change in his x-ray patient has chronic renal failure renal function is improving patient was anemic on admission Qualifiers: Chronicity: acute
[2020-11-11 14:13] LABS: Urine Protein/Creatinine Ratio 3.46 ratio (<0.15)
--- NOTE | 2020-11-11 17:11 | P.PN ---
Subjective Date of Service: 11/11/20 Chief Complaint: osteomyelitis respiratory failure Subjective: No new changes (feels slightly better - breathing better, more energy, more appetite. still on 12 L NC) Review of Systems 10-point ROS is otherwise unremarkable Physical Examination - Vital Signs Temperature: 97.1 F Blood Pressure: 145/66 Pulse: 87 Respirations: 20 Pulse Ox (%): 92 Assessment & Plan Physician Review Additional Text: Physical Exam General: AOx3, NAD HEENT: Mucous membr. moist/pink, sclera anicteric Respiratory: Diminished, Crackles/rales bilaterally, on 12L NC Cardiovascular: No edema, Regular rate/rhythm, Normal S1 S2 Gastrointestinal: Soft and benign, Non-distended, No tenderness Musculoskeletal: L BKA, ulcer healing. L sternoclavicular swelling and tenderness Skin: multiple large scattered ecchymosis on patients L chest, & L shoulder, abdomen Problem list Pneumonia Pulmonary edema CALDERON on CKD 4 L clavicular fracture Left BKA stump ulcer, with osteomyelitis Diabetes mellitus, ofk-nrwfulr-tfgvhfnim HTN Chronic tobacco use Acute on Chronic anemia, iron deficiency and heme+ stool ?Hep C Patient with diffuse bilateral lung opacities needing oxygen supplementation Pneumonia versus pulmonary edema. Procalcitonin mildly elevated, leukocytosis Cardiology input appreciated. Elevated troponin deemed secondary to CALDERON/CKD, hypoxia and anemia. Patient also has early or mild findings of liver cirrhosis with elevated liver enzymes. - discussed with family, report they were just told a few days ago that patient was positive for Hep C - tested in [place], they are unsure of results other than "positive". elevated LFTs possibly due to congestion ID consulted - continue levaquin to cover for pneumonia, Vanc changed to dapto due to concern for volume overload by ID CALDERON on CKD slowly improving, nephrology consulted. patient with more hypoxia, and worsening opacities on CXR, concerned patient is having worsened pulm edema. Pulmonology consulted appears to have pulm edema, will give 40IV lasix today and follow renal function chronic iron deficiency anemia, s/p 1 unit PRBC transfusion. do not suspect TRALI, had b/l opacities prior to transfusion dc'd dilaudid, avoid ativan, consider tramadol if continues with pain Dr. Goldstein consulted - EGD done showing mild atrophic gastritis. Continue protonix multiple ecchymosis and L clavicle highly suspicious for recent trauma, however family and patient deny any fall/trauma. unclear when patient fractured L clavicle - patient and family report first noticing ecchymosis on Sunday at home. Deny any trauma/fall when patient was at home. review of EMR revealed ER visit on 11/06 was first time ecchymosis and L clavicle fracture were first noted reviewed with radiology - unable to verify presence of clavicle fracture on chest x-rays from last admission and current admission. only seen on CT Ortho consulted - recommend no surgical treatment, continue medical management, sling ordered Dispo: anticipate dc home, likely in 3-4 days Time Spent Managing Pts Care (In Minutes): 35
--- NOTE | 2020-11-11 20:10 | P.PN ---
Date of Service: 11/11/20 Vital Signs Temp Pulse Resp BP Pulse Ox 97.1 F 87 20 145/66 H 92 11/11/20 17:11 11/11/20 17:11 11/11/20 17:11 11/11/20 17:11 11/11/20 17:11 Medications Albuterol Sulfate (Albuterol 2.5 Mg/3 Ml Neb Lorena) 2.5 mg NEB [id number] PRN PRN Reason: SHORTNESS OF BREATH Amlodipine Besylate (Amlodipine 2.5 Mg Tab) 2.5 mg PO DAILY [facility] Last Admin: 11/11/20 09:14 Dose: 2.5 mg Documented by: Benzonatate (Benzonatate 100 Mg Cap) 100 mg PO TID PRN PRN Reason: COUGH Last Admin: 11/09/20 22:07 Dose: 100 mg Documented by: Calcitriol (Calcitrol 0.25 Mcg Cap) 0.5 mcg PO DAILY [facility] Last Admin: 11/11/20 09:15 Dose: 0.5 mcg Documented by: Cholecalciferol (Vitamin D 5,000 Unit Cap) 5,000 unit PO DAILY [facility] Last Admin: 11/11/20 09:15 Dose: 5,000 unit Documented by: Collagenase (Collagenase 30 Gm Ointment) 0 appl TOP DAILY [facility] Last Admin: 11/11/20 09:32 Dose: 1 ea Documented by: Furosemide (Furosemide 40 Mg/4 Ml Vial) 40 mg IV DAILY [facility] Last Admin: 11/11/20 09:16 Dose: 40 mg Documented by: Gabapentin (Gabapentin 100 Mg Cap) 100 mg PO TID [facility] Last Admin: 11/11/20 16:58 Dose: 100 mg Documented by: Hydralazine HCl (Hydralazine Hcl 25 Mg Tablet) 25 mg PO BID [facility] Last Admin: 11/11/20 09:15 Dose: 25 mg Documented by: Daptomycin 250 mg/ Sodium (Chloride) 100 mls @ 200 mls/hr IVPB Q48H [facility]; Protocol Last Admin: 11/10/20 13:13 Dose: 100 mls Documented by: Insulin Human Regular (Insulin -Regular Human 50 Unit/0.5 Ml Ml) 0 unit SQ ACHS [facility]; Protocol Last Admin: 11/11/20 12:16 Dose: 3 unit Documented by: Lactobacillus Acidoph/Bulgaricus (Lactobacillus/Acidophilus Tab) 1 tab PO TID [facility] Last Admin: 11/11/20 16:57 Dose: 1 tab Documented by: Levofloxacin (Levofloxacin 250 Mg Tab) 250 mg PO Q48H [facility] Last Admin: 11/11/20 09:15 Dose: 250 mg Documented by: Melatonin (Melatonin 5 Mg Tablet) 5 mg PO BEDTIME PRN PRN PRN Reason: INSOMNIA Last Admin: 11/11/20 00:30 Dose: 5 mg Documented by: Metoprolol Tartrate (Metoprolol Tar 25 Mg Tab) 25 mg PO BID 6AM 6PM [facility] Last Admin: 11/11/20 16:58 Dose: 25 mg Documented by: Nutritional Formula (Ensure Enlive 237 Ml Can) 237 ml PO BID [facility] Last Admin: 11/11/20 09:00 Dose: 237 ml Documented by: Ondansetron HCl (Ondansetron 4 Mg/2 Ml Vial) 4 mg IV Q6HP PRN PRN Reason: NAUSEA / VOMITING Last Admin: 11/10/20 14:26 Dose: 4 mg Documented by: Sodium Bicarbonate (Sodium Bicarb 325 Mg Tab) 650 mg PO TIDWM [facility] Last Admin: 11/11/20 16:57 Dose: 650 mg Documented by: Sodium Chloride (Flush Normal Saline 10 Ml) 10 ml IV BID [facility] Last Admin: 11/11/20 09:00 Dose: 10 ml Documented by: Sodium Chloride (Sodium Chloride 0.9% 10ml Inj) 10 ml IV UD PRN PRN Reason: Diluant Last Admin: 11/09/20 20:31 Dose: 10 ml Documented by: Microbiology Results 11/06/20 19:37 Blood - Blood Aerobic Blood Culture - Preliminary No growth in 24 hours. 11/06/20 19:37 Blood - Blood Anaerobic Blood Culture - Preliminary No growth in 24 hours. 11/06/20 19:46 Blood - Blood Aerobic Blood Culture - Preliminary No growth in 24 hours. 11/06/20 19:46 Blood - Blood Anaerobic Blood Culture - Preliminary No growth in 24 hours. Assessment/ Plan: Nephrology Feeling better and stronger this morning with improved appetite No acute events overnight. Vitals, medications, blood work and imaging reviewed in the chart. NAD. MMM. Neck supple. BL Diffuse Rales. RRR. Soft Abd. No C/C/E. No rash. AAO. Normal Speech. Left BKA. A/P: Continue the current POC and Medications other than the changes listed. AM Labs PRN. Recommend daily weight. Please see the orders for complete details. CALDERON likely due hypovolemia CKD IV -No NSAIDs Hyperkalemia -Monitor potassium Acidosis -Continue oral bicarb Hypocalcemia -Continue Vitamin D HTN with tachycardia -Continue Metoprolol 25mg BID Moderate malnutrition -Encourage nutrition Anemia in chronic illness Iron deficiency -PRBC transfusion PRN Osteomyelitis of tibia -Continue abx BL PNA with ARDS vs CHF -Continue Levaquin
[2020-11-11] MEDS ORDERED: TRAMADOL HCL 50 MG TAB PO PRN (20:28)
[2020-11-12 06:15] LABS: Absolute Lymphocytes (CBC) 0.7 K/uL (0.7-4.9); Basophils % 0.2 % (0-1.3); Hematocrit 29.3 % (39.6-49.0); Lymphocytes % 6.4 % (15.3-44.8); MPV 8.1 fL (7.6-11.3); RBC Red Blood Cell Count 3.38 M/uL (4.33-5.43)
[2020-11-12] MEDS: METOPROLOL TAR 25 MG TAB PO SCH ×2 (06:36→18:00)
[2020-11-12 06:45] LABS: C-Reactive Protein 88.6 mg/L (<3.00); Magnesium 2.4 mg/dL (1.8-2.4); Potassium 4.1 mmol/L (3.5-5.1)
[2020-11-12] MEDS: INSULIN -REGULAR HUMAN 50 UNIT/0.5 ML ML SQ SCH ×2 (07:30→14:30)
--- NOTE | 2020-11-12 08:50 | RAD REPORT ---
EXAM DESCRIPTION: RAD - Chest Single View - 11/12/2020 5:12 am CLINICAL HISTORY: hypoxia Chest pain. COMPARISON: Chest Single View dated 11/11/2020; Chest Single View dated 11/10/2020; Chest Single View dated 11/09/2020; Chest Single View dated 11/06/2020 FINDINGS: Portable technique limits examination quality. Extensive bilateral pulmonary opacities are noted without significant change. The heart is mildly enl arged in size. Right-sided PICC line has tip in the SVC.
[2020-11-12] MEDS: ENSURE ENLIVE 237 ML CAN PO SCH ×2 (09:00→20:46)
[2020-11-12] MEDS: COLLAGENASE 30 GM OINTMENT TOP SCH (09:00)
[2020-11-12] MEDS: VITAMIN D 5,000 UNIT CAP PO SCH (09:05)
[2020-11-12] MEDS: CALCITROL 0.25 MCG CAP PO SCH (09:05)
[2020-11-12] MEDS: AMLODIPINE 2.5 MG TAB PO SCH (09:05)
[2020-11-12] MEDS: SODIUM BICARB 325 MG TAB PO SCH ×3 (09:06→17:00)
[2020-11-12] MEDS: LACTOBACILLUS/ACIDOPHILUS TAB PO SCH ×3 (09:06→20:47)
[2020-11-12] MEDS: HYDRALAZINE HCL 25 MG TABLET PO SCH ×2 (09:06→20:46)
[2020-11-12] MEDS: FUROSEMIDE 40 MG/4 ML VIAL IV SCH ×2 (09:06→15:35)
[2020-11-12] MEDS: GABAPENTIN 100 MG CAP PO SCH (09:06)
[2020-11-12] MEDS: METHYLPREDNISOLONE 125 MG INJ IV SCH ×2 (10:34→17:00)
[2020-11-12] MEDS ORDERED: RSI MEDICATION KIT IV ONE (11:11)
[2020-11-12] MEDS ORDERED: MIDAZOLAM HCL 2 MG/2 ML INJ IV ONE (11:32)
--- NOTE | 2020-11-12 11:35 | RAD REPORT ---
EXAM DESCRIPTION: RAD - Chest Single View - 11/12/2020 11:28 am CLINICAL HISTORY: code Chest pain. COMPARISON: Chest Single View dated 11/12/2020; Chest Single View dated 11/11/2020; Chest Single View dated 11/10/2020; Chest Single View dated 11/09/2020 FINDINGS: Portable technique limits examination quality. Endotracheal intubation is noted. Tip endotracheal tube is approximately 3 cm above the level of the aortic arch. Extensive bilateral pulmonary opacities persists. Right PICC line is unchanged in positi on.
[2020-11-12] MEDS ORDERED: MIDAZOLAM HCL 2 MG/2 ML INJ ONE (11:44)
[2020-11-12 11:48] LABS: Albumin 2.1 g/dL (3.4-5.0); Bilirubin Total 0.6 mg/dL (0.2-1.0); Magnesium 2.3 mg/dL (1.8-2.4); Potassium 4.4 mmol/L (3.5-5.1); Protein, Total 6.9 g/dL (6.4-8.2)
[2020-11-12] MEDS: MIDAZOLAM HCL 100 MG in NA CHLORIDE 0.9% 80 ML IV PRN (11:54)
--- NOTE | 2020-11-12 11:57 | P.PN ---
Subjective Date of Service: 11/12/20 Chief Complaint: osteomyelitis respiratory failure Patient seen and examined at bedside: Was doing fine with no acute complaints. Patent hr after patient was seen code blue was called. Patient was intubated demands city down to the ICU. Daptomycin has been stopped due to possible lung damage. The patient's switched to zyvox: daily CBCs to monitor platelet level. Review of Systems 10-point ROS is otherwise unremarkable Physical Examination - Vital Signs Temperature: 97.8 F Blood Pressure: 175/69 Pulse: 90 Respirations: 16 Pulse Ox (%): 90 - Studies Microbiology Data (last 24 hrs): 11/06/20 19:37 Blood - Blood Aerobic Blood Culture - Final No growth in 5 days. 11/06/20 19:37 Blood - Blood Anaerobic Blood Culture - Final No growth in 5 days. 11/06/20 19:46 Blood - Blood Aerobic Blood Culture - Final No growth in 5 days. 11/06/20 19:46 Blood - Blood Anaerobic Blood Culture - Final No growth in 5 days. Assessment And Plan - Plan Antibiotics: current zyvox: start: 11/12 stop: 12/12 Levaquin start: 11/09 stop: 12/12 DC: daptomycin start: 11/08 stop: 11/12 Assessment: -osteomyelitis of left BKA stump -bilateral multifocal pneumonia vs pulmonary edema -leukocytosis -diabetes type 2 -CKD stage 4 -chronic tobacco user -anemia Plan: -MRI from previous visit confirmed osteomyelitis left BKA stump. Patient on the antibiotic course of 6 weeks. Patient switched from vancomycin to daptomycin due to worsening kidney function. Patient had code blue on 11/12: Daptomycin switch to thrive ox due to possible lung damage. Ordered daily CBCs to monitor patient's platelet count, if it continues to drop switch patient to vancomycin and continue to monitor renal function. -chest x-ray and chest CT shows bilateral pulmonary opacities, pneumonia versus pulmonary edema. Continue current antibiotic treatments. Recommend pulmonology consults and sputum culture. -leukocytosis despite being on broad-spectrum antibiotics. Increase in white blood cell count could be due to trauma patient experienced outpatient resulting in left collarbone fx and extensive bruising to the neck and upper extremity. Continue to monitor closely. -iron deficiency anemia: Maintain hemoglobin of at least 7.0 recommend transfusion hemoglobin drops below 7.0. -renally dose antibiotics situations worsening CKD. -medical management per primary team -continue monitor CBC and BMP -continue to monitor for signs of infection Plan of care discussed with Dr. Payton Thank you for consultation
[2020-11-12 12:08] LABS: Arterial Blood Carboxyhemoglob 1.9 % (0-1.5); Blood Gas Oxyhemoglobin 90.8 % (94-97); Blood O2 Saturation 93.5 % (92-98.5)
[2020-11-12] MEDS ORDERED: METHYLPREDNISOLONE 40 MG INJ ONE (12:51)
[2020-11-12] MEDS ORDERED: HALOPERIDOL LACT 5 MG/ML INJ IV PRN (12:57)
--- NOTE | 2020-11-12 13:00 | P.PN ---
Subjective Date of Service: 11/12/20 Chief Complaint: osteomyelitis respiratory failure Patient's condition deteriorated today ended up in respiratory failure is currently on a ventilator chest x-ray shows diffuse bilateral changes Review of Systems is unable to be obtained Physical Examination - Vital Signs Temperature: 97.8 F Blood Pressure: 175/69 Pulse: 90 Respirations: 16 Pulse Ox (%): 90 - Physical Exam General: Unresponsive Respiratory: Clear to auscultation bilaterally Gastrointestinal: Normal bowel sounds, Soft and benign - Studies Microbiology Data (last 24 hrs): 11/06/20 19:37 Blood - Blood Aerobic Blood Culture - Final No growth in 5 days. 11/06/20 19:37 Blood - Blood Anaerobic Blood Culture - Final No growth in 5 days. 11/06/20 19:46 Blood - Blood Aerobic Blood Culture - Final No growth in 5 days. 11/06/20 19:46 Blood - Blood Anaerobic Blood Culture - Final No growth in 5 days. Assessment & Plan - Problems (Diagnosis) (1) Respiratory failure Current Visit: Yes Status: Acute Plan: Respiratory failure condition is worse trial of steroids sputum cultures may benefit from a bronchoscopy when is stable patient is now on linozolide. They have had a reaction to daptomycin chronic renal failure white count is normal agree with aggressive diuresis advance endotracheal tube blood pressure elevated increase amlodipine increase peep Qualifiers: Chronicity: acute
[2020-11-12] MEDS ORDERED: FUROSEMIDE 40 MG/4 ML VIAL ONE (14:15)
--- NOTE | 2020-11-12 17:00 | P.PN ---
Subjective Date of Service: 11/12/20 Chief Complaint: heme+ stool, anemia, h/o PUD, osteomyelitis, respiratory failure Physical Examination - Vital Signs Temperature: 97.4 F Blood Pressure: 142/67 Pulse: 68 Respirations: 15 Pulse Ox (%): 100 - Studies Microbiology Data (last 24 hrs): 11/06/20 19:37 Blood - Blood Aerobic Blood Culture - Final No growth in 5 days. 11/06/20 19:37 Blood - Blood Anaerobic Blood Culture - Final No growth in 5 days. 11/06/20 19:46 Blood - Blood Aerobic Blood Culture - Final No growth in 5 days. 11/06/20 19:46 Blood - Blood Anaerobic Blood Culture - Final No growth in 5 days. Assessment And Plan - Current Problems (Diagnosis) (1) Heme + stool Current Visit: Yes Status: Acute (2) History of peptic ulcer disease Current Visit: Yes Status: Acute (3) Congestive heart failure (CHF) Current Visit: Yes Status: Acute (4) Anemia Current Visit: No Status: Acute Qualifiers: Anemia type: iron deficiency Iron deficiency anemia type: unspecified iron deficiency Qualified Code(s): D50.9 - Iron deficiency anemia, unspecified (5) Elevated troponin Current Visit: No Status: Acute (6) Osteomyelitis of tibia Current Visit: No Status: Acute (7) Diabetes mellitus Onset Date: 08/08/16 Current Visit: No Status: Chronic Qualifiers: Diabetes mellitus type: type 2 Diabetes 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 moist/pink, sclera anicteric Respiratory: Diminished, Crackles/rales bilaterally, on 12L NC Cardiovascular: No edema, Regular rate/rhythm, Normal S1 S2 Gastrointestinal: Soft and benign, Non-distended, No tenderness Musculoskeletal: L BKA, ulcer healing. L sternoclavicular swelling and tenderness Skin: multiple large scattered ecchymosis on patients L chest, & L shoulder, abdomen Problem list Pneumonia Pulmonary edema CALDERON on CKD 4 L clavicular fracture Left BKA stump ulcer, with osteomyelitis Diabetes mellitus, [id number] HTN Chronic tobacco use Acute on Chronic anemia, iron deficiency and heme+ stool ?Hep C Patient with diffuse bilateral lung opacities needing oxygen supplementation Pneumonia versus pulmonary edema. Procalcitonin mildly elevated, leukocytosis Cardiology input appreciated. Elevated troponin deemed secondary to CALDERON/CKD, hypoxia and anemia. Patient also has early or mild findings of liver cirrhosis with elevated liver enzymes. - discussed with family, report they were just told a few days ago that patient was positive for Hep C - tested in [place], they are unsure of results other than "positive". elevated LFTs possibly due to congestion ID consulted - continue levaquin to cover for pneumonia, Vanc changed to dapto due to concern for volume overload by ID CALDERON on CKD slowly improving, nephrology consulted. patient with more hypoxia, and worsening opacities on CXR, concerned patient is having worsened pulm edema. Pulmonology consulted appears to have pulm edema, will give 40IV lasix today and follow renal function chronic iron deficiency anemia, s/p 1 unit PRBC transfusion. do not suspect TRALI, had b/l opacities prior to transfusion dc'd dilaudid, avoid ativan, consider tramadol if continues with pain Dr. Goldstein consulted - EGD done showing mild atrophic gastritis. Continue protonix multiple ecchymosis and L clavicle highly suspicious for recent trauma, however family and patient deny any fall/trauma. unclear when patient fractured L clavicle - patient and family report first noticing ecchymosis on Sunday at home. Deny any trauma/fall when patient was at home. review of EMR revealed ER visit on 11/06 was first time ecchymosis and L clavicle fracture were first noted reviewed with radiology - unable to verify presence of clavicle fracture on chest x-rays from last admission and current admission. only seen on CT Ortho consulted - recommend no surgical treatment, continue medical management, sling ordered Dispo: anticipate dc home, likely in 3-4 days
--- NOTE | 2020-11-12 17:04 | P.PN ---
Subjective Date of Service: 11/08/20 Chief Complaint: heme+ stool, anemia, h/o PUD, osteomyelitis, respiratory failure Subjective: No new changes Physical Examination - Vital Signs Temperature: 97.4 F Blood Pressure: 142/67 Pulse: 68 Respirations: 15 Pulse Ox (%): 100 - Studies Microbiology Data (last 24 hrs): 11/06/20 19:37 Blood - Blood Aerobic Blood Culture - Final No growth in 5 days. 11/06/20 19:37 Blood - Blood Anaerobic Blood Culture - Final No growth in 5 days. 11/06/20 19:46 Blood - Blood Aerobic Blood Culture - Final No growth in 5 days. 11/06/20 19:46 Blood - Blood Anaerobic Blood Culture - Final No growth in 5 days. Assessment And Plan - Current Problems (Diagnosis) (1) Heme + stool Current Visit: Yes Status: Acute (2) History of peptic ulcer disease Current Visit: Yes Status: Acute (3) Congestive heart failure (CHF) Current Visit: Yes Status: Acute (4) Anemia Current Visit: No Status: Acute Qualifiers: Anemia type: iron deficiency Iron deficiency anemia type: unspecified iron deficiency Qualified Code(s): D50.9 - Iron deficiency anemia, unspecified (5) Elevated troponin Current Visit: No Status: Acute (6) Osteomyelitis of tibia Current Visit: No Status: Acute (7) Diabetes mellitus Onset Date: 08/08/16 Current Visit: No Status: Chronic Qualifiers: Diabetes mellitus type: type 2 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 moist/pink, sclera anicteric Respiratory: Diminished, Crackles/rales bilaterally, on 12L NC Cardiovascular: No edema, Regular rate/rhythm, Normal S1 S2 Gastrointestinal: Soft and benign, Non-distended, No tenderness Musculoskeletal: L BKA, ulcer healing. L sternoclavicular swelling and tenderness Skin: multiple large scattered ecchymosis on patients L chest, & L shoulder, abdomen Problem list Pneumonia Pulmonary edema CALDERON on CKD 4 L clavicular fracture Left BKA stump ulcer, with osteomyelitis Diabetes mellitus, [id number] HTN Chronic tobacco use Acute on Chronic anemia, iron deficiency and heme+ stool ?Hep C Patient with diffuse bilateral lung opacities needing oxygen supplementation Pneumonia versus pulmonary edema. Procalcitonin mildly elevated, leukocytosis Cardiology input appreciated. Elevated troponin deemed secondary to CALDERON/CKD, hypoxia and anemia. Patient also has early or mild findings of liver cirrhosis with elevated liver enzymes. - discussed with family, report they were just told a few days ago that patient was positive for Hep C - tested in [place], they are unsure of results other than "positive". elevated LFTs possibly due to congestion ID consulted - continue levaquin to cover for pneumonia, Vanc changed to dapto due to concern for volume overload by ID CALDERON on CKD slowly improving, nephrology consulted. patient with more hypoxia, and worsening opacities on CXR, concerned patient is having worsened pulm edema. Pulmonology consulted appears to have pulm edema, will give 40IV lasix today and follow renal function chronic iron deficiency anemia, s/p 1 unit PRBC transfusion. do not suspect TRALI, had b/l opacities prior to transfusion dc'd dilaudid, avoid ativan, consider tramadol if continues with pain Dr. Goldstein consulted - EGD done showing mild atrophic gastritis. Continue protonix multiple ecchymosis and L clavicle highly suspicious for recent trauma, however family and patient deny any fall/trauma. unclear when patient fractured L clavicle - patient and family report first noticing ecchymosis on Sunday at home. Deny any trauma/fall when patient was at home. review of EMR revealed ER visit on 11/06 was first time ecchymosis and L clavicle fracture were first noted reviewed with radiology - unable to verify presence of clavicle fracture on chest x-rays from last admission and current admission. only seen on CT Ortho consulted - recommend no surgical treatment, continue medical management, sling ordered Dispo: anticipate dc home, likely in 3-4 days
--- NOTE | 2020-11-12 17:08 | P.PN ---
Subjective Date of Service: 11/11/20 Chief Complaint: heme+ stool, anemia, h/o PUD, osteomyelitis, respiratory failure Subjective: New changes (SOB, respiratory mild distress on continuous pulse ox in room now, s/p code yellow (urgent distress).) Physical Examination - Vital Signs Temperature: 97.4 F Blood Pressure: 142/67 Pulse: 68 Respirations: 15 Pulse Ox (%): 100 - Studies Microbiology Data (last 24 hrs): 11/06/20 19:37 Blood - Blood Aerobic Blood Culture - Final No growth in 5 days. 11/06/20 19:37 Blood - Blood Anaerobic Blood Culture - Final No growth in 5 days. 11/06/20 19:46 Blood - Blood Aerobic Blood Culture - Final No growth in 5 days. 11/06/20 19:46 Blood - Blood Anaerobic Blood Culture - Final No growth in 5 days. Assessment And Plan - Current Problems (Diagnosis) (1) Heme + stool Current Visit: Yes Status: Acute (2) History of peptic ulcer disease Current Visit: Yes Status: Acute (3) Congestive heart failure (CHF) Current Visit: Yes Status: Acute (4) Anemia Current Visit: No Status: Acute Qualifiers: Anemia type: iron deficiency Iron deficiency anemia type: unspecified iron deficiency Qualified Code(s): D50.9 - Iron deficiency anemia, unspecified (5) Elevated troponin Current Visit: No Status: Acute (6) Osteomyelitis of tibia Current Visit: No Status: Acute (7) Diabetes mellitus Onset Date: 08/08/16 Current Visit: No Status: Chronic Qualifiers: Diabetes mellitus type: type 2 Diabetes 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 moist/pink, sclera anicteric Respiratory: Diminished, Crackles/rales bilaterally, on 12L NC Cardiovascular: No edema, Regular rate/rhythm, Normal S1 S2 Gastrointestinal: Soft and benign, Non-distended, No tenderness Musculoskeletal: L BKA, ulcer healing. L sternoclavicular swelling and tenderness Skin: multiple large scattered ecchymosis on patients L chest, & L shoulder, abdomen Problem list Pneumonia Pulmonary edema CALDERON on CKD 4 L clavicular fracture Left BKA stump ulcer, with osteomyelitis Diabetes mellitus, [id number] HTN Chronic tobacco use Acute on Chronic anemia, iron deficiency and heme+ stool ?Hep C Patient with diffuse bilateral lung opacities needing oxygen supplementation Pneumonia versus pulmonary edema. Procalcitonin mildly elevated, leukocytosis Cardiology input appreciated. Elevated troponin deemed secondary to CALDERON/CKD, hypoxia and anemia. Patient also has early or mild findings of liver cirrhosis with elevated liver enzymes. - discussed with family, report they were just told a few days ago that patient was positive for Hep C - tested in [place], they are unsure of results other than "positive". elevated LFTs possibly due to congestion ID consulted - continue levaquin to cover for pneumonia, Vanc changed to dapto due to concern for volume overload by ID CADLERON on CKD slowly improving, nephrology consulted. patient with more hypoxia, and worsening opacities on CXR, concerned patient is having worsened pulm edema. Pulmonology consulted appears to have pulm edema, will give 40IV lasix today and follow renal function chronic iron deficiency anemia, s/p 1 unit PRBC transfusion. do not suspect TRALI, had b/l opacities prior to transfusion dc'd dilaudid, avoid ativan, consider tramadol if continues with pain Dr. Goldstein consulted - EGD done showing mild atrophic gastritis. Continue protonix multiple ecchymosis and L clavicle highly suspicious for recent trauma, however family and patient deny any fall/trauma. unclear when patient fractured L clavicle - patient and family report first noticing ecchymosis on Sunday at home. Deny any trauma/fall when patient was at home. review of EMR revealed ER visit on 11/06 was first time ecchymosis and L clavicle fracture were first noted reviewed with radiology - unable to verify presence of clavicle fracture on chest x-rays from last admission and current admission. only seen on CT Ortho consulted - recommend no surgical treatment, continue medical management, sling ordered Dispo: anticipate dc home, likely in 3-4 days
--- NOTE | 2020-11-12 17:10 | P.PN ---
Subjective Date of Service: 11/12/20 Chief Complaint: heme+ stool, anemia, h/o PUD, osteomyelitis, respiratory failure Subjective: New changes (Transferred to ICU after code blue this morning.) Physical Examination - Vital Signs Temperature: 97.4 F Blood Pressure: 142/67 Pulse: 68 Respirations: 15 Pulse Ox (%): 100 - Studies Microbiology Data (last 24 hrs): 11/06/20 19:37 Blood - Blood Aerobic Blood Culture - Final No growth in 5 days. 11/06/20 19:37 Blood - Blood Anaerobic Blood Culture - Final No growth in 5 days. 11/06/20 19:46 Blood - Blood Aerobic Blood Culture - Final No growth in 5 days. 11/06/20 19:46 Blood - Blood Anaerobic Blood Culture - Final No growth in 5 days. Assessment And Plan - Current Problems (Diagnosis) (1) Heme + stool Current Visit: Yes Status: Acute (2) History of peptic ulcer disease Current Visit: Yes Status: Acute (3) Congestive heart failure (CHF) Current Visit: Yes Status: Acute (4) Anemia Current Visit: No Status: Acute Qualifiers: Anemia type: iron deficiency Iron deficiency anemia type: unspecified iron deficiency Qualified Code(s): D50.9 - Iron deficiency anemia, unspecified (5) Elevated troponin Current Visit: No Status: Acute (6) Osteomyelitis of tibia Current Visit: No Status: Acute (7) Diabetes mellitus Onset Date: 08/08/16 Current Visit: No Status: Chronic Qualifiers: Diabetes mellitus type: type 2 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 moist/pink, sclera anicteric Respiratory: Diminished, Crackles/rales bilaterally, on 12L NC Cardiovascular: No edema, Regular rate/rhythm, Normal S1 S2 Gastrointestinal: Soft and benign, Non-distended, No tenderness Musculoskeletal: L BKA, ulcer healing. L sternoclavicular swelling and tenderness Skin: multiple large scattered ecchymosis on patients L chest, & L shoulder, abdomen Problem list Pneumonia Pulmonary edema CALDERON on CKD 4 L clavicular fracture Left BKA stump ulcer, with osteomyelitis Diabetes mellitus, [id number] HTN Chronic tobacco use Acute on Chronic anemia, iron deficiency and heme+ stool ?Hep C Patient with diffuse bilateral lung opacities needing oxygen supplementation Pneumonia versus pulmonary edema. Procalcitonin mildly elevated, leukocytosis Cardiology input appreciated. Elevated troponin deemed secondary to CALDERON/CKD, hypoxia and anemia. Patient also has early or mild findings of liver cirrhosis with elevated liver enzymes. - discussed with family, report they were just told a few days ago that patient was positive for Hep C - tested in [place], they are unsure of results other than "positive". elevated LFTs possibly due to congestion ID consulted - continue levaquin to cover for pneumonia, Vanc changed to dapto due to concern for volume overload by ID CALDERON on CKD slowly improving, nephrology consulted. patient with more hypoxia, and worsening opacities on CXR, concerned patient is having worsened pulm edema. Pulmonology consulted appears to have pulm edema, will give 40IV lasix today and follow renal function chronic iron deficiency anemia, s/p 1 unit PRBC transfusion. do not suspect TRALI, had b/l opacities prior to transfusion dc'd dilaudid, avoid ativan, consider tramadol if continues with pain Dr. Glodstein consulted - EGD done showing mild atrophic gastritis. Continue protonix multiple ecchymosis and L clavicle highly suspicious for recent trauma, however family and patient deny any fall/trauma. unclear when patient fractured L clavicle - patient and family report first noticing ecchymosis on Sunday at home. Deny any trauma/fall when patient was at home. review of EMR revealed ER visit on 11/06 was first time ecchymosis and L clavicle fracture were first noted reviewed with radiology - unable to verify presence of clavicle fracture on chest x-rays from last admission and current admission. only seen on CT Ortho consulted - recommend no surgical treatment, continue medical management, sling ordered Dispo: anticipate dc home, likely in 3-4 days
--- NOTE | 2020-11-12 18:04 | P.PN ---
Subjective Date of Service: 11/12/20 Chief Complaint: heme+ stool, anemia, h/o PUD, osteomyelitis, respiratory failure Subjective: Other (patient improved this morning, feeling better, down to 10LNC, a few hours later a code blue was called. was at bedside states patient was complaining of pain, took nasal cannula off, then noticed (unsure of how long) that he stopped breathing) Review of Systems 10-point ROS is otherwise unremarkable Physical Examination - Vital Signs Temperature: 97.4 F Blood Pressure: 142/67 Pulse: 68 Respirations: 15 Pulse Ox (%): 100 - Studies Microbiology Data (last 24 hrs): 11/06/20 19:37 Blood - Blood Aerobic Blood Culture - Final No growth in 5 days. 11/06/20 19:37 Blood - Blood Anaerobic Blood Culture - Final No growth in 5 days. 11/06/20 19:46 Blood - Blood Aerobic Blood Culture - Final No growth in 5 days. 11/06/20 19:46 Blood - Blood Anaerobic Blood Culture - Final No growth in 5 days. Assessment & Plan Physician Review Additional Text: Physical Exam General: AOx3, NAD HEENT: Mucous membr. moist/pink, sclera anicteric Respiratory: Diminished, Crackles/rales bilaterally, on 10L NC Cardiovascular: No edema, Regular rate/rhythm, Normal S1 S2 Gastrointestinal: Soft and benign, Non-distended, No tenderness Musculoskeletal: L BKA, ulcer healing. L sternoclavicular swelling and tenderness Skin: multiple large scattered ecchymosis on patients L chest, & L shoulder, abdomen Problem list Pneumonia Pulmonary edema CALDERON on CKD 4 L clavicular fracture Left BKA stump ulcer, with osteomyelitis Diabetes mellitus, [id number] HTN Chronic tobacco use Acute on Chronic anemia, iron deficiency and heme+ stool ?Hep C code blue called, i arrived ~30 seconds after code called after 2 min total of chest compressions, a pulse was felt, chest compressions were stopped patient's SpO2 was in 60s, improved with bag ventilation, subsequently intubated patient woke up and was responding, fighting ETT, BP was WNL, HR: 50-60s nursing reported some difficulty swallowing pills, states patient was coughing with breakfast - concern for aspiration patient also removed nasal cannula for unknown amount of time, first stated she was on phone and distracted, then stated was only seconds seems to have had hypoxic arrest transferred to ICU, winkler placed, changed back to IV vanc/levaquin, steroids, and increased lasix continue mechanical vent for now, versed for sedation Cardiology input appreciated. Elevated troponin deemed secondary to CALDERON/CKD, hypoxia and anemia. Patient also has early or mild findings of liver cirrhosis with elevated liver enzymes. - discussed with family, report they were just told a few days ago that patient was positive for Hep C - tested in [place], they are unsure of results other than "positive". elevated LFTs possibly due to congestion chronic iron deficiency anemia, s/p 1 unit PRBC transfusion. do not suspect TRALI, had b/l opacities prior to transfusion Dr. Goldstein consulted - EGD done showing mild atrophic gastritis. Continue protonix multiple ecchymosis and L clavicle highly suspicious for recent trauma, however family and patient deny any fall/trauma. unclear when patient fractured L clavicle - patient and family report first noticing ecchymosis on Sunday at home. Deny any trauma/fall when patient was at home. review of EMR revealed ER visit on 11/06 was first time ecchymosis and L clavicle fracture were first noted reviewed with radiology - unable to verify presence of clavicle fracture on chest x-rays from last admission and current admission. only seen on CT Ortho consulted - recommend no surgical treatment, continue medical management, sling ordered Dispo: anticipate dc home, likely in several days Critical Care: Yes (35) Time Spent Managing Pts Care (In Minutes): 70
[2020-11-12] MEDS ORDERED: NA CHLORIDE 0.9% 250 ML ONE (20:03)
--- NOTE | 2020-11-12 20:04 | P.PN ---
Date of Service: 11/12/20 Vital Signs Temp Pulse Resp BP Pulse Ox 97.4 F 68 15 142/67 H 100 11/12/20 18:04 11/12/20 18:04 11/12/20 18:04 11/12/20 18:04 11/12/20 18:04 Medications Albuterol Sulfate (Albuterol 2.5 Mg/3 Ml Neb Lorena) 2.5 mg NEB [id number] PRN PRN Reason: SHORTNESS OF BREATH Amlodipine Besylate (Amlodipine 5 Mg Tab) 5 mg PO DAILY [facility] Benzonatate (Benzonatate 100 Mg Cap) 100 mg PO TID PRN PRN Reason: COUGH Last Admin: 11/09/20 22:07 Dose: 100 mg Documented by: Calcitriol (Calcitrol 0.25 Mcg Cap) 0.5 mcg PO DAILY [facility] Last Admin: 11/12/20 09:05 Dose: 0.5 mcg Documented by: Cholecalciferol (Vitamin D 5,000 Unit Cap) 5,000 unit PO DAILY [facility] Last Admin: 11/12/20 09:05 Dose: 5,000 unit Documented by: Collagenase (Collagenase 30 Gm Ointment) 0 appl TOP DAILY [facility] Last Admin: 11/12/20 09:00 Dose: 1 ea Documented by: Fentanyl Citrate (Fentanyl Citr 100 Mcg/2 Ml) 25 mcg IV Q4HP PRN PRN Reason: Pain scale 8-10 (Severe) Furosemide (Furosemide 40 Mg/4 Ml Vial) 40 mg IV Q8HR [facility] Last Admin: 11/12/20 15:35 Dose: 40 mg Documented by: Haloperidol Lactate (Haloperidol Lact 5 Mg/Ml Inj) 2 mg IV Q4HP PRN PRN Reason: AGITATION Hydralazine HCl (Hydralazine Hcl 25 Mg Tablet) 25 mg PO BID [facility] Last Admin: 11/12/20 09:06 Dose: 25 mg Documented by: Midazolam HCl 100 mg/ Sodium (Chloride) 100 mls @ 0 mls/hr IV PRN PRN; Protocol PRN Reason: SEDATION Last Admin: 11/12/20 11:54 Dose: 100 mls Documented by: Linezolid (Zyvox 600 Mg/300 Ml Ivpb (Premix)) 600 mg in 300 mls @ 300 mls/hr IV Q12HR [facility]; Protocol Levofloxacin/Dextrose (Levaquin 250mg/50 Ml Ivpb) 250 mg in 50 mls @ 50 mls/hr IV Q48H [facility]; Protocol Insulin Human Regular (Insulin -Regular Human 50 Unit/0.5 Ml Ml) 0 unit SQ ACHS [facility]; Protocol Last Admin: 11/12/20 14:30 Dose: Not Given Documented by: Lactobacillus Acidoph/Bulgaricus (Lactobacillus/Acidophilus Tab) 1 tab PO TID S Last Admin: 11/12/20 09:06 Dose: 1 tab Documented by: Lorazepam (Lorazepam 2 Mg/Ml Vial) 2 mg IV Q2HP PRN PRN Reason: SEDATION Methylprednisolone Sodium Succinate (Methylprednisolone 125 Mg Inj) 80 mg IV Q8HR [facility] Last Admin: 11/12/20 17:00 Dose: 80 mg Documented by: Metoprolol Tartrate (Metoprolol Tar 25 Mg Tab) 25 mg PO BID 6AM 6PM [facility] Last Admin: 11/12/20 06:36 Dose: 25 mg Documented by: Nutritional Formula (Ensure Enlive 237 Ml Can) 237 ml PO BID [facility] Last Admin: 11/12/20 09:00 Dose: 237 ml Documented by: Ondansetron HCl (Ondansetron 4 Mg/2 Ml Vial) 4 mg IV Q6HP PRN PRN Reason: NAUSEA / VOMITING Last Admin: 11/10/20 14:26 Dose: 4 mg Documented by: Sodium Bicarbonate (Sodium Bicarb 325 Mg Tab) 650 mg PO TIDWM [facility] Last Admin: 11/12/20 12:00 Dose: Not Given Documented by: Sodium Chloride (Flush Normal Saline 10 Ml) 10 ml IV BID [facility] Last Admin: 11/12/20 09:00 Dose: 10 ml Documented by: Sodium Chloride (Sodium Chloride 0.9% 10ml Inj) 10 ml IV UD PRN PRN Reason: Diluant Last Admin: 11/09/20 20:31 Dose: 10 ml Documented by: Microbiology Results 11/06/20 19:37 Blood - Blood Aerobic Blood Culture - Final No growth in 5 days. 11/06/20 19:37 Blood - Blood Anaerobic Blood Culture - Final No growth in 5 days. 11/06/20 19:46 Blood - Blood Aerobic Blood Culture - Final No growth in 5 days. 11/06/20 19:46 Blood - Blood Anaerobic Blood Culture - Final No growth in 5 days. Assessment/ Plan: Nephrology/ ICU Code blue earlier today due to unresponsiveness. Intubated and transferred to the ICU. Limited IH/ ROS due to AMS Vitals, medications, blood work and imaging reviewed in the chart. NAD. MMM. Neck supple. BL Diffuse Rales. RRR. Soft Abd. No C/C/E. No rash. Unresponsive. No Speech. Left BKA. Greater than 30min patient care. A/P: Continue the current POC and Medications other than the changes listed. AM Labs PRN. Recommend daily weight. Please see the orders for complete details. CALDERON likely due hypovolemia CKD IV -No NSAIDs Hyperkalemia -Monitor potassium Acidosis -Continue oral bicarb Hypocalcemia -Continue Vitamin D HTN with tachycardia -Continue Metoprolol 25mg BID Moderate malnutrition -Encourage nutrition Anemia in chronic illness Iron deficiency -PRBC transfusion PRN Osteomyelitis of tibia -Continue abx BL PNA with ARDS vs CHF Acute hypoxic resp failure -Continue Levaquin and Vanco -Ventilatory support as ordered -Continue furosemide Toxic metabolic encephalopathy
[2020-11-12] MEDS: LINEZOLID 600 MG IVPB 600 MG/300 ML BAG IV SCH (20:45)
[2020-11-12] MEDS: LORazepam 2 MG/ML VIAL IV PRN (23:22)
[2020-11-12] MEDS ORDERED: FUROSEMIDE 20 MG/ 2ML VIAL ONE (23:38)
[2020-11-12] MEDS ORDERED: METHYLPREDNISOLONE 125 MG INJ ONE (23:38)
[2020-11-12] MEDS ORDERED: LORazepam 2 MG/ML VIAL ONE (23:39)
[2020-11-13] MEDS: INSULIN -REGULAR HUMAN 50 UNIT/0.5 ML ML SQ SCH ×4 (00:29→16:44)
[2020-11-13] MEDS ORDERED: INSULIN -REGULAR HUMAN 50 UNIT/0.5 ML ML ONE (00:45)
[2020-11-13] MEDS: FUROSEMIDE 40 MG/4 ML VIAL IV SCH ×3 (00:49→20:28)
[2020-11-13] MEDS: METHYLPREDNISOLONE 125 MG INJ IV SCH ×3 (00:49→20:28)
[2020-11-13 05:46] LABS: Absolute Lymphocytes (CBC) 0.1 K/uL (0.7-4.9); Basophils % 0.2 % (0-1.3); Hematocrit 31.2 % (39.6-49.0); Lymphocytes % 2.5 % (15.3-44.8); MPV 8.3 fL (7.6-11.3); RBC Red Blood Cell Count 3.61 M/uL (4.33-5.43)
[2020-11-13] MEDS: LORazepam 2 MG/ML VIAL IV PRN ×4 (06:10→23:02)
[2020-11-13] MEDS ORDERED: LORazepam 2 MG/ML VIAL ONE ×4 (06:20→20:41)
[2020-11-13 06:28] LABS: Bilirubin Total 0.6 mg/dL (0.2-1.0); C-Reactive Protein 68.3 mg/L (<3.00); Magnesium 2.2 mg/dL (1.8-2.4); Protein, Total 6.8 g/dL (6.4-8.2)
[2020-11-13] MEDS: FENTANYL CITR 100 MCG/2 ML IV PRN ×3 (07:29→20:29)
[2020-11-13] MEDS ORDERED: FENTANYL CITR 100 MCG/2 ML ONE ×3 (07:46→20:44)
--- NOTE | 2020-11-13 07:55 | RAD REPORT ---
EXAM DESCRIPTION: RAD - Chest Single View - 11/13/2020 5:44 am CLINICAL HISTORY: Respiratory failure pneumonia COMPARISON: Portable November 12 TECHNIQUE: AP portable chest image was obtained 11/13/2020 5:44 am . FINDINGS: Endotracheal tube remains in place. Tip is slightly superior to the aortic arch, 4 cm abov e the chel[place]. NG/OG tube is within a decompressed stomach. Tip is off the field of view. Right-side P ICC line has not changed. There has been substantial clearing of the airspace edema or infiltrate since prior day imaging. Heart and vasculature are normal. No enlarging pleural effusion and no pneumothorax. No acute bony a bnormality seen. No acute aortic findings suspected. IMPRESSION: Substantial clearing of the diffuse airspace edema or infiltrate seen on the November 12 ex am. Endotracheal tube is slightly superior to the aortic arch, 4 cm above the che[place]. No change in positi oning of the PICC line or NG/OG tube.
[2020-11-13] MEDS: HEPARIN 5000 UNIT/ML 1 ML VIAL SQ SCH ×2 (08:05→20:27)
[2020-11-13] MEDS: FAMOTIDINE 20 MG/2 ML VIAL IV SCH (08:05)
[2020-11-13] MEDS: AMLODIPINE 5 MG TAB PO SCH (08:06)
[2020-11-13] MEDS: METOPROLOL TAR 25 MG TAB PO SCH ×2 (08:06→16:48)
[2020-11-13] MEDS: CALCITROL 0.25 MCG CAP PO SCH (08:07)
[2020-11-13] MEDS: VITAMIN D 5,000 UNIT CAP PO SCH (08:07)
[2020-11-13] MEDS: ENSURE ENLIVE 237 ML CAN PO SCH ×2 (08:07→20:33)
[2020-11-13] MEDS ORDERED: HEPARIN 5000 UNIT/ML 1 ML VIAL ONE ×3 (08:19→20:40)
[2020-11-13] MEDS ORDERED: METHYLPREDNISOLONE 125 MG INJ ONE ×2 (08:19→20:40)
[2020-11-13] MEDS ORDERED: METOPROLOL TAR 25 MG TAB ONE ×2 (08:19→17:06)
[2020-11-13] MEDS ORDERED: FUROSEMIDE 40 MG/4 ML VIAL ONE (08:20)
[2020-11-13] MEDS ORDERED: AMLODIPINE 5 MG TAB ONE (08:20)
[2020-11-13] MEDS ORDERED: FAMOTIDINE 20 MG/2 ML VIAL IV ONE (08:20)
[2020-11-13] MEDS: LINEZOLID 600 MG IVPB 600 MG/300 ML BAG IV SCH ×2 (08:59→20:32)
[2020-11-13] MEDS ORDERED: THIAMINE 200 MG/2 ML INJ ONE (09:05)
[2020-11-13] MEDS ORDERED: ONDANSETRON 4 MG/2 ML VIAL ONE (09:06)
[2020-11-13] MEDS ORDERED: HYDROMORPHONE HCL 2 MG/ML inj ONE (09:06)
[2020-11-13] MEDS ORDERED: PANTOPRAZOLE 40 MG INJ ONE (09:06)
[2020-11-13] MEDS ORDERED: POTASSIUM CL SA 10 MEQ TAB PO ONE (09:06)
[2020-11-13] MEDS: Levofloxacin 250mg IV 250 MG/50 ML BAG IV SCH (09:07)
[2020-11-13] MEDS: HYDRALAZINE HCL 25 MG TABLET PO SCH ×2 (09:07→20:32)
[2020-11-13] MEDS: SODIUM BICARB 325 MG TAB PO SCH ×3 (09:07→16:48)
[2020-11-13] MEDS: LACTOBACILLUS/ACIDOPHILUS TAB PO SCH ×3 (09:20→20:32)
[2020-11-13] MEDS ORDERED: LACTOBACILLUS/ACIDOPHILUS TAB ONE ×2 (09:37→13:17)
--- NOTE | 2020-11-13 10:24 | PN ---
Date of Progress Note: 11/09/2020 The patient has been followed for chest pain; diastolic congestive heart failure, improved, almost as ymptomatic. Echocardiogram report revealed diastolic congestive heart failure, ejection fraction 60% , moderate pulmonary hypertension with a right ventricular systolic pressure of 55 mmHg, significant mitral regurgitation. The patient should be on ISHAN inhibitors, beta-blockers, Lasix. He can go home whenever it is okay with admitting physician. I will see him in the office in the next 2 weeks. HI/MELY Voice ID: [id number] Report ID: [id number]
--- NOTE | 2020-11-13 10:26 | P.PN ---
Subjective Date of Service: 11/13/20 (TV) Chief Complaint: Resp failure Pt is improving Still having secretions. CXRY has improved Physical Examination - Vital Signs Temperature: 97.8 F Blood Pressure: 167/83 Pulse: 71 Respirations: 12 Pulse Ox (%): 98 Assessment & Plan - Problems (Diagnosis) (1) Respiratory failure Current Visit: Yes Status: Acute Plan: Much improved. Change vent settings. CXRY has improved. Labs reviewed Renal function imrpoving. WBC normal. Plan to start weaning am. Change vent settings and advance ET tube Qualifiers: Chronicity: acute
[2020-11-13 11:02] LABS: Anisocytosis 1+; Blood Morphology Comment NOTED (NOT SEEN); Platelet Estimate DECR; White Blood Cell Scan OK (OK)
[2020-11-13] MEDS: MIDAZOLAM HCL 100 MG in NA CHLORIDE 0.9% 80 ML IV PRN (11:48)
[2020-11-13] MEDS ORDERED: HYDRALAZINE HCL 25 MG TABLET PO ONE (13:00)
--- NOTE | 2020-11-13 13:31 | RAD REPORT ---
EXAM DESCRIPTION: RAD - Chest Single View - 11/13/2020 12:34 pm CLINICAL HISTORY: advanced ETT by 1.5cm COMPARISON: November 13 TECHNIQUE: AP portable chest image was obtained 11/13/2020 12:34 pm . FINDINGS: Endotracheal tube is in place. Tip is at the upper portion of the aortic arch level 3.5 cm above the chel[place]. Enteric tube extends below the diaphragm. No change to the right-side PICC line. Lung parenchymal opacification has not changed. Heart and vasculature are normal. No measurable pleur al effusion and no pneumothorax. No acute bony abnormality seen. No acute aortic findings suspected. IMPRESSION: Endotracheal tube tip is at the level of the upper aortic arch 3.5 cm above the chelsea. Remaining findings detailed above are stable from earlier day study.
[2020-11-13] MEDS: COLLAGENASE 30 GM OINTMENT TOP SCH (14:53)
--- NOTE | 2020-11-13 15:09 | P.PN ---
Subjective Date of Service: 11/13/20 Chief Complaint: Resp failure Subjective: Improving (No acute events overnight. Remains intubated/sedated. CXR significantly improved. Patient had 4 L urine output, renal function improved.) Review of Systems 10-point ROS is otherwise unremarkable Physical Examination - Vital Signs Temperature: 97.8 F Blood Pressure: 132/73 Pulse: 73 Respirations: 11 Pulse Ox (%): 98 Assessment & Plan Physician Review Additional Text: Physical Exam General: Intubated, sedated HEENT: ETT in place, with thick secretions Respiratory: Diminished, Crackles/rales bilaterally, on mechanical ventilation Cardiovascular: No edema, Regular rate/rhythm, Normal S1 S2 Gastrointestinal: Soft and benign, Non-distended Musculoskeletal: L BKA, ulcer healing. L sternoclavicular swelling and tenderness Skin: multiple large scattered ecchymosis on patients L chest, & L shoulder, abdomen Problem list Acute hypoxemic respiratory failure secondary to Pneumonia and pulmonary edema CALDERON on CKD 4 L clavicular fracture Left BKA stump ulcer, with osteomyelitis Diabetes mellitus, [id number] HTN Chronic tobacco use Acute on Chronic anemia, iron deficiency and heme+ stool ?Hep C Continue mechanical ventilation, patient with thick secretions. plan for wean and possible extubation tomorrow Continue with his zyvox and Levaquin (ID recommended zyvox over vanc) reduce lasix from 40q8h to BID IV reduce steroids from q8hr to BID as well family updated at bedside continue ICU level of care Cardiology consulted. Elevated troponin deemed secondary to CALDERON/CKD, hypoxia and anemia. Patient also has early or mild findings of liver cirrhosis with elevated liver enzymes. - discussed with family, report they were just told a few days ago that patient was positive for Hep C - tested in [place], they are unsure of results other than "positive". elevated LFTs possibly due to congestion. Pt's charts were requested from [facility] 11/13 chronic iron deficiency anemia, s/p 1 unit PRBC transfusion. do not suspect TRALI, had b/l opacities prior to transfusion Dr. Goldstein consulted - EGD done showing mild atrophic gastritis. Continue protonix multiple ecchymosis and L clavicle highly suspicious for recent trauma, however family and patient deny any fall/trauma. unclear when patient fractured L clavicle - patient and family report first noticing ecchymosis on Sunday at home. Deny any trauma/fall when patient was at home. review of EMR revealed ER visit on 11/06 was first time ecchymosis and L clavicle fracture were first noted Ortho consulted - recommend no surgical treatment, continue medical management, sling ordered Dispo: anticipate home, may need SNF, continue ICU level of care anticipate hospitalization > 2 days. Time Spent Managing Pts Care (In Minutes): 35
[2020-11-13] MEDS ORDERED: HALOPERIDOL LACT 5 MG/ML INJ ONE (17:12)
--- NOTE | 2020-11-13 18:47 | PN ---
Date of Progress Note: 11/13/2020 Subjective: The patient is seen in emergency room, hold 11. The patient is not alert or awake. He is intubated and sedated. He has got several areas of bruising on his body, apparently has had some falls. His vitals are otherwise stable. Current vitals show a pulse around 80, respiration rate ophelia und 14-16, O2 sats are about 97%. He is running a little bit of a higher blood pressure than is sterling white. He is being cleaned up by the nurses and perhaps is agitated with that but his blood pressure sys adeline is about 160 to 170 with the last blood pressure is 177/89. Objective: Lungs: Clear to auscultation. Abdomen: Soft. Extremities: Do not reveal any edema. Medications: Reviewed. Assessment And Plan: 1.The patient has had code blue. Recently, he has been intubated and is currently in the ICU still with sedation and vent support. His acute kidney injury likely was secondary to hypovolemia but that seems to have improved. He is not getting any NSAIDs. Question of his kidney status at baseline. He has chronic kidney disease, will need to be re-evaluated with the assessment for residual kidney f unction once acute issues are resolved. 2.Hyperkalemia. At this point, this has improved. His potassium is at 4. Continue to monitor acid osis, on bicarb. This is resolved. 3.Hypercalcemia, on vitamin D. 4.Hypertension, currently on metoprolol. His blood pressure has been tracking a little bit on the h igher side, on hydralazine. I discussed with nurses. We will get another dose of hydralazine 25 mg currently and we will monitor iggy anderson. /MODL Voice ID: [id number] Report ID: [id number]
[2020-11-13] MEDS: SODIUM CHLORIDE 0.9% 10ML INJ IV PRN (20:31)
[2020-11-13] MEDS ORDERED: FUROSEMIDE 20 MG/ 2ML VIAL ONE (20:40)
[2020-11-13] MEDS ORDERED: WATER FOR INJ,STERILE 10 ML ONE (20:44)
[2020-11-14] MEDS: INSULIN -REGULAR HUMAN 50 UNIT/0.5 ML ML SQ SCH ×5 (00:14→23:52)
[2020-11-14] MEDS ORDERED: INSULIN -REGULAR HUMAN 50 UNIT/0.5 ML ML ONE (00:32)
[2020-11-14] MEDS: FENTANYL CITR 100 MCG/2 ML IV PRN (05:38)
[2020-11-14 05:50] LABS: Absolute Lymphocytes (CBC) 0.4 K/uL (0.7-4.9); Basophils % 0.4 % (0-1.3); Hematocrit 30.9 % (39.6-49.0); Lymphocytes % 6.5 % (15.3-44.8); MPV 8.7 fL (7.6-11.3); RBC Red Blood Cell Count 3.66 M/uL (4.33-5.43)
[2020-11-14] MEDS ORDERED: FENTANYL CITR 100 MCG/2 ML ONE (05:55)
[2020-11-14 06:14] LABS: Bilirubin Total 0.6 mg/dL (0.2-1.0); C-Reactive Protein 28.8 mg/L (<3.00); Magnesium 2.1 mg/dL (1.8-2.4); Potassium 3.4 mmol/L (3.5-5.1); Protein, Total 6.7 g/dL (6.4-8.2)
[2020-11-14] MEDS: SODIUM BICARB 325 MG TAB PO SCH ×3 (07:07→15:29)
[2020-11-14] MEDS: ENSURE ENLIVE 237 ML CAN PO SCH ×2 (07:07→20:26)
[2020-11-14] MEDS: VITAMIN D 5,000 UNIT CAP PO SCH (07:08)
[2020-11-14] MEDS: CALCITROL 0.25 MCG CAP PO SCH (07:08)
[2020-11-14] MEDS: METHYLPREDNISOLONE 125 MG INJ IV SCH (07:23)
[2020-11-14] MEDS: FUROSEMIDE 40 MG/4 ML VIAL IV SCH (07:23)
[2020-11-14] MEDS: Levofloxacin 250mg IV 250 MG/50 ML BAG IV SCH (07:24)
[2020-11-14] MEDS: FAMOTIDINE 20 MG/2 ML VIAL IV SCH (07:24)
[2020-11-14] MEDS: METOPROLOL TAR 25 MG TAB PO SCH ×2 (07:24→16:18)
[2020-11-14] MEDS: LACTOBACILLUS/ACIDOPHILUS TAB PO SCH ×3 (07:24→20:24)
[2020-11-14] MEDS: LINEZOLID 600 MG IVPB 600 MG/300 ML BAG IV SCH ×2 (07:24→20:26)
[2020-11-14] MEDS: HEPARIN 5000 UNIT/ML 1 ML VIAL SQ SCH ×2 (07:24→20:24)
[2020-11-14] MEDS: AMLODIPINE 5 MG TAB PO SCH (07:25)
[2020-11-14] MEDS: HYDRALAZINE HCL 25 MG TABLET PO SCH ×2 (07:25→20:24)
[2020-11-14] MEDS ORDERED: METHYLPREDNISOLONE 125 MG INJ ONE (07:33)
[2020-11-14] MEDS ORDERED: METOPROLOL TAR 25 MG TAB ONE ×2 (07:33→16:37)
[2020-11-14] MEDS ORDERED: HEPARIN 5000 UNIT/ML 1 ML VIAL ONE ×2 (07:33→20:42)
[2020-11-14] MEDS ORDERED: FAMOTIDINE 20 MG/2 ML VIAL IV ONE (07:34)
[2020-11-14] MEDS ORDERED: FUROSEMIDE 40 MG/4 ML VIAL ONE (07:34)
[2020-11-14] MEDS ORDERED: AMLODIPINE 5 MG TAB ONE ×2 (07:34→16:22)
[2020-11-14 09:17] LABS: Arterial Blood Carboxyhemoglob 1.6 % (0-1.5); Blood Gas Oxyhemoglobin 95.9 % (94-97); Blood O2 Saturation 98.5 % (92-98.5)
[2020-11-14] MEDS: HYDRALAZINE HCL 20 MG/ML VIAL IV PRN ×2 (09:19→23:58)
[2020-11-14] MEDS ORDERED: HYDRALAZINE HCL 20 MG/ML VIAL ONE (09:38)
[2020-11-14] MEDS: COLLAGENASE 30 GM OINTMENT TOP SCH (10:19)
--- NOTE | 2020-11-14 10:58 | RAD REPORT ---
EXAM DESCRIPTION: RAD - Chest Single View - 11/14/2020 6:38 am CLINICAL HISTORY: Respiratory failure pneumonia Chest pain. COMPARISON: Chest Single View dated 11/13/2020; Chest Single View dated 11/13/2020; Chest Single View da altagracia 11/12/2020; Chest Single View dated 11/12/2020 FINDINGS: Portable technique limits examination quality. Tip of the endotracheal tube is at the level of the aortic arch. Right-sided PICC line is unchanged i n position. Enteric tube enters the upper abdomen. Little overall change is seen in bilateral pulmona ry opacities since prior study.
--- NOTE | 2020-11-14 12:12 | P.PN ---
Subjective Date of Service: 11/14/20 Chief Complaint: Resp failure Patient is doing much better chest x-rays clear did tolerating spontaneous breathing trial and was extubated this morning Review of Systems is unable to be obtained Physical Examination - Vital Signs Temperature: 97.9 F Blood Pressure: 164/82 Pulse: 73 Respirations: 12 Pulse Ox (%): 98 - Physical Exam General: Alert, Cooperative Respiratory: Clear to auscultation bilaterally Cardiovascular: No edema, Regular rate/rhythm Assessment & Plan - Problems (Diagnosis) (1) Respiratory failure Current Visit: Yes Status: Acute Plan: Doing much better extubated chest x-ray has cleared agree with reducing the dose of Lasix and Solu-Medrol they have and hypersensitivity reaction to the mycin for volume overload blood pressure elevated medication and labs reviewed white count is now normal in 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 levofloxacin and Zyvox Qualifiers: Chronicity: acute
[2020-11-14] MEDS: TRAMADOL HCL 50 MG TAB PO PRN (12:15)
[2020-11-14] MEDS ORDERED: TRAMADOL HCL 50 MG TAB ONE ×2 (12:34→20:22)
--- NOTE | 2020-11-14 14:07 | P.PN ---
Subjective Date of Service: 11/14/20 Chief Complaint: Resp failure Subjective: Improving (diuresed very well overnight, down >6L. CXR much improved. plan for extubation today) Review of Systems 10-point ROS is otherwise unremarkable Physical Examination - Vital Signs Temperature: 97.9 F Blood Pressure: 164/82 Pulse: 73 Respirations: 13 Pulse Ox (%): 100 Assessment & Plan Physician Review Additional Text: Physical Exam General: Intubated, sedated HEENT: ETT in place Respiratory: Diminished, Crackles/rales bilaterally, on mechanical ventilation Cardiovascular: No edema, Regular rate/rhythm, Normal S1 S2 Gastrointestinal: Soft and benign, Non-distended Musculoskeletal: L BKA, ulcer healing. L sternoclavicular swelling and tenderness Skin: multiple large scattered ecchymosis on patients L chest/shoulder Problem list Acute hypoxemic respiratory failure secondary to Pneumonia and pulmonary edema CALDERON on CKD 4 L clavicular fracture Left BKA stump ulcer, with osteomyelitis Diabetes mellitus, opy-iyccqgc-tmdherskw HTN Chronic tobacco use Acute on Chronic anemia, iron deficiency and heme+ stool ?Hep C improved significantly with diuresis and steroids plan for extubation later this morning Continue with his zyvox and Levaquin (ID recommended zyvox over vanc) dc scheduled lasix for now, re-eval later today/tomorrow AM reduce steroids further family updated at bedside continue ICU level of care Cardiology consulted. Elevated troponin deemed secondary to CALDERON/CKD, hypoxia and anemia. Patient also has early or mild findings of liver cirrhosis with elevated liver enzymes. - discussed with family, report they were just told a few days ago that patient was positive for Hep C - tested in [place], they are unsure of results other than "positive". elevated LFTs possibly due to congestion. Pt's charts were requested from [facility] 11/13 chronic iron deficiency anemia, s/p 1 unit PRBC transfusion. do not suspect TRALI, had b/l opacities prior to transfusion Dr. Goldstein consulted - EGD done showing mild atrophic gastritis. Continue protonix multiple ecchymosis and L clavicle highly suspicious for recent trauma, however family and patient deny any fall/trauma. unclear when patient fractured L clavicle - patient and family report first noticing ecchymosis on Sunday at home. Deny any trauma/fall when patient was at home. review of EMR revealed ER visit on 11/06 was first time ecchymosis and L clavicle fracture were first noted Ortho consulted - recommend no surgical treatment, continue medical management, sling ordered Dispo: anticipate home, may need SNF, continue ICU level of care anticipate hospitalization > 2 days. possible transfer to floor tomorrow Time Spent Managing Pts Care (In Minutes): 35
[2020-11-14] MEDS ORDERED: AMLODIPINE 5 MG TAB PO ONE (17:00)
[2020-11-14] MEDS ORDERED: TRAMADOL HCL 50 MG TAB PO ONE (20:12)
[2020-11-14] MEDS: SODIUM CHLORIDE 0.9% 10ML INJ IV PRN (20:25)
[2020-11-14] MEDS: METHYLPREDNISOLONE 40 MG INJ IV SCH (20:25)
[2020-11-14] MEDS ORDERED: METHYLPREDNISOLONE 40 MG INJ ONE (20:42)
--- NOTE | 2020-11-14 21:10 | PN ---
Subjective: The patient is alert. He has been extubated. He is sitting comfortably, able to talk s oftly with me. He is speaking in Macedonian. He does not seem to be confused. He does say he is in a little bit of distress, but when I ask him what is hurting him, he says that he is actually feeling o verall better and no particular area of pain currently. Objective: Vital Signs: His blood pressures have been running up in the 150 to 170 range, that was a blood pressure earlier in the evening, yesterday of 187/97, last blood pressure today was 177/91, p ulse at 82, respirations 16, O2 sats at 99%. General: He is not in any pain. Currently, he is afebrile. Lungs: Clear to auscultation. Abdomen: Soft. Extremities: Do not reveal any significant edema. Neurologic: The patient is conversing, still not taking p.o. intake, awaiting for speech therapy. Laboratory Data: Reviewed. WBC of 5.7, hemoglobin and hematocrit of 10 and 30.9, platelet count of 161. Chemistries show sodium 142, potassium 3.4, chloride 105, bicarb is 29, BUN 76, creatinine 2.02 . Assessment And Plan: The patient with significant improvement compared to yesterday. He has been ex tubated. He is alert. He is able to talk in full sentences. His blood pressures are still running on the higher side. He does not seem to have any volume overload. He does not seem to have any prabhakar a. His abdomen is soft. His lungs are clear. At this point, 1.Hyperkalemia, resolved. 2.Hypercalcemia, on vitamin D. 3.Hypertension. At this point, the patient is on metoprolol. We will go ahead and increase his amlodipine dose. He has been stopped off Lasix, which I agree with as he does not have any swelling. If the patient does have a problem with sleep study tomorrow and unable to take p.o. intake, we may have to consider sta rting IV fluids. The patient seems to be euvolemic, perhaps little bit on the volume depleted side. Once again, agree with discontinuing Lasix and considering IV fluids if the patient does not have go od p.o. intake by tomorrow. /MELY Voice ID: [id number] Report ID: [id number]
[2020-11-15] MEDS ORDERED: INSULIN -REGULAR HUMAN 50 UNIT/0.5 ML ML ONE ×2 (00:10→18:07)
[2020-11-15] MEDS ORDERED: HYDRALAZINE HCL 10 MG TABLET ONE (00:13)
[2020-11-15] MEDS ORDERED: HYDRALAZINE HCL 20 MG/ML VIAL ONE (00:16)
[2020-11-15] MEDS: TRAMADOL HCL 50 MG TAB PO PRN ×3 (02:55→17:24)
[2020-11-15] MEDS ORDERED: TRAMADOL HCL 50 MG TAB ONE ×3 (03:14→17:42)
[2020-11-15 04:40] LABS: Absolute Lymphocytes (CBC) 0.2 K/uL (0.7-4.9); Basophils % 0.2 % (0-1.3); Lymphocytes % 2.1 % (15.3-44.8); MPV 8.6 fL (7.6-11.3); RBC Red Blood Cell Count 3.77 M/uL (4.33-5.43)
[2020-11-15 05:05] LABS: Albumin 2.1 g/dL (3.4-5.0); Bilirubin Total 0.6 mg/dL (0.2-1.0); C-Reactive Protein 20.7 mg/L (<3.00); Magnesium 2.1 mg/dL (1.8-2.4); Potassium 3.1 mmol/L (3.5-5.1); Protein, Total 6.7 g/dL (6.4-8.2)
[2020-11-15] MEDS: INSULIN -REGULAR HUMAN 50 UNIT/0.5 ML ML SQ SCH ×3 (06:00→17:50)
[2020-11-15] MEDS: METOPROLOL TAR 25 MG TAB PO SCH ×2 (06:00→17:20)
[2020-11-15] MEDS: KCL 20 MEQ/100 mL IVPB 20 MEQ/100 ML BAG IV SCH ×2 (06:42→09:16)
[2020-11-15] MEDS ORDERED: KCL 20 MEQ/100 mL IVPB 20 MEQ/100 ML BAG IV ONE ×2 (07:00→09:07)
[2020-11-15] MEDS ORDERED: METOPROLOL TAR 25 MG TAB ONE ×2 (07:35→15:48)
[2020-11-15] MEDS: Levofloxacin 250mg IV 250 MG/50 ML BAG IV SCH (08:35)
--- NOTE | 2020-11-15 08:35 | RAD REPORT ---
EXAM DESCRIPTION: RAD - Chest Single View - 11/15/2020 6:17 am CLINICAL HISTORY: Respiratory failure pneumonia Chest pain. COMPARISON: Chest Single View dated 11/14/2020; Chest Single View dated 11/13/2020; Chest Single View da altagracia 11/13/2020; Chest Single View dated 11/12/2020 FINDINGS: Portable technique limits examination quality. Mild to moderate bilateral pulmonary opacities appear unchanged since prior study. Endotracheal tube is been removed. Right-sided PICC line and enteric tube remain in place unchanged. Heart size is uppe r limit of normal.
[2020-11-15] MEDS: FAMOTIDINE 20 MG/2 ML VIAL IV SCH (08:57)
[2020-11-15] MEDS: METHYLPREDNISOLONE 40 MG INJ IV SCH ×2 (08:57→20:31)
[2020-11-15] MEDS: COLLAGENASE 30 GM OINTMENT TOP SCH (09:00)
[2020-11-15] MEDS: AMLODIPINE 5 MG TAB PO SCH (09:00)
[2020-11-15] MEDS: ENSURE ENLIVE 237 ML CAN PO SCH ×2 (09:00→21:59)
[2020-11-15] MEDS ORDERED: METHYLPREDNISOLONE 40 MG INJ ONE ×2 (09:06→20:48)
[2020-11-15] MEDS ORDERED: AMLODIPINE 10 MG TAB ONE (09:06)
[2020-11-15] MEDS ORDERED: HEPARIN 5000 UNIT/ML 1 ML VIAL ONE ×2 (09:06→20:47)
[2020-11-15] MEDS ORDERED: FAMOTIDINE 20 MG/2 ML VIAL IV ONE (09:06)
[2020-11-15] MEDS: LACTOBACILLUS/ACIDOPHILUS TAB PO SCH ×3 (09:13→20:30)
[2020-11-15] MEDS: SODIUM BICARB 325 MG TAB PO SCH ×3 (09:13→17:20)
[2020-11-15] MEDS: HYDRALAZINE HCL 25 MG TABLET PO SCH ×3 (09:14→20:30)
[2020-11-15] MEDS: CALCITROL 0.25 MCG CAP PO SCH (09:14)
[2020-11-15] MEDS: VITAMIN D 5,000 UNIT CAP PO SCH (09:15)
[2020-11-15] MEDS: LINEZOLID 600 MG IVPB 600 MG/300 ML BAG IV SCH ×2 (09:15→20:30)
[2020-11-15] MEDS: HEPARIN 5000 UNIT/ML 1 ML VIAL SQ SCH ×2 (09:42→20:29)
--- NOTE | 2020-11-15 10:34 | P.PN ---
Subjective Date of Service: 11/15/20 Chief Complaint: Resp failure Patient seen and examined in ICU. Doing much better today extubated. Patient has a right-sided PICC line, NG tube, Li catheter. Patient has slightly altered mental status, and does not remember seeing his her daughter yesterday. Sputum negative urine negative blood negative fl fluid in coded negative. Continue 5 ox on Levaquin, WBC within normal range. Platelets normal. Review of Systems 10-point ROS is otherwise unremarkable Physical Examination - Vital Signs Temperature: 97.9 F Blood Pressure: 155/88 Pulse: 82 Respirations: 18 Pulse Ox (%): 97 - Physical Exam General: Cachectic, Other (Altered mental status) HEENT: Atraumatic, Normocephalic Neck: Supple, 2+ carotid pulse no bruit, Other (Extensive ecchymosis and swelling over the left neck/shoulder. Swelling noted over left collarbone.) Respiratory: Other (Decreased breath sounds, crackles.) Cardiovascular: No edema, Normal pulses, Regular rate/rhythm Capillary refill: <2 Seconds Gastrointestinal: Normal bowel sounds, Soft and benign Musculoskeletal: Other (Left BKA with ulcer) - Studies Temp Pulse Resp BP Pulse Ox 97.9 F 82 18 155/88 H 97 11/15/20 09:00 11/15/20 10:00 11/15/20 10:00 11/15/20 10:00 11/15/20 10:00 Active Medications Albuterol Sulfate (Albuterol 2.5 Mg/3 Ml Neb Lorena) 2.5 mg NEB [id number] PRN PRN Reason: SHORTNESS OF BREATH Amlodipine Besylate (Amlodipine 5 Mg Tab) 10 mg PO DAILY [facility] Last Admin: 11/15/20 09:00 Dose: 10 mg Documented by: Benzonatate (Benzonatate 100 Mg Cap) 100 mg PO TID PRN PRN Reason: COUGH Last Admin: 11/09/20 22:07 Dose: 100 mg Documented by: Calcitriol (Calcitrol 0.25 Mcg Cap) 0.5 mcg PO DAILY [facility] Last Admin: 11/15/20 09:14 Dose: 0.5 mcg Documented by: Cholecalciferol (Vitamin D 5,000 Unit Cap) 5,000 unit PO DAILY [facility] Last Admin: 11/15/20 09:15 Dose: 5,000 unit Documented by: Collagenase (Collagenase 30 Gm Ointment) 0 appl TOP DAILY [facility] Last Admin: 11/15/20 09:00 Dose: 1 ea Documented by: Famotidine (Famotidine 20 Mg/2 Ml Vial) 20 mg IV DAILY [facility]; Protocol Last Admin: 11/15/20 08:57 Dose: 20 mg Documented by: Heparin Sodium (Porcine) (Heparin 5000 Unit/Ml 1 Ml Vial) 5,000 unit SQ Q12HR [facility] Last Admin: 11/15/20 09:42 Dose: 5,000 unit Documented by: Hydralazine HCl (Hydralazine Hcl 25 Mg Tablet) 25 mg PO BID [facility] Last Admin: 11/15/20 09:14 Dose: 25 mg Documented by: Hydralazine HCl (Hydralazine Hcl 20 Mg/Ml Vial) 5 mg IV Q6HP PRN PRN Reason: FOR SBP>160 OR DBP>100 [facility] Last Admin: 11/14/20 23:58 Dose: 5 mg Documented by: Linezolid (Zyvox 600 Mg/300 Ml Ivpb (Premix)) 600 mg in 300 mls @ 300 mls/hr IV Q12HR [facility]; Protocol Last Admin: 11/15/20 09:15 Dose: 300 mls Documented by: Levofloxacin/Dextrose (Levaquin 250mg/50 Ml Ivpb) 250 mg in 50 mls @ 50 mls/hr IV Q48H [facility]; Protocol Last Admin: 11/15/20 08:35 Dose: 50 mls Documented by: Potassium Chloride (Kcl 20 Meq/100 Ml Ivpb (Premix)) 20 meq in 100 mls @ 50 mls/hr IV Q2H [facility]; Protocol Stop: 11/15/20 10:59 Last Admin: 11/15/20 09:16 Dose: 100 mls Documented by: Insulin Human Regular (Insulin -Regular Human 50 Unit/0.5 Ml Ml) 0 unit SQ Q6HR [facility]; Protocol Last Admin: 11/15/20 06:00 Dose: Not Given Documented by: Lactobacillus Acidoph/Bulgaricus (Lactobacillus/Acidophilus Tab) 1 tab PO TID [facility] Last Admin: 11/15/20 09:13 Dose: 1 tab Documented by: Melatonin (Melatonin 5 Mg Tablet) 10 mg PO BEDTIME PRN PRN PRN Reason: insommnia Methylprednisolone Sodium Succinate (Methylprednisolone 40 Mg Inj) 40 mg IV BID [facility] Last Admin: 11/15/20 08:57 Dose: 40 mg Documented by: Metoprolol Tartrate (Metoprolol Tar 25 Mg Tab) 25 mg PO BID 6AM 6PM [facility] Last Admin: 11/15/20 06:00 Dose: 25 mg Documented by: Nutritional Formula (Ensure Enlive 237 Ml Can) 237 ml PO BID [facility] Last Admin: 11/15/20 09:00 Dose: 237 ml Documented by: Ondansetron HCl (Ondansetron 4 Mg/2 Ml Vial) 4 mg IV Q6HP PRN PRN Reason: NAUSEA / VOMITING Last Admin: 11/10/20 14:26 Dose: 4 mg Documented by: Sodium Bicarbonate (Sodium Bicarb 325 Mg Tab) 650 mg PO TIDWM [facility] Last Admin: 11/15/20 09:13 Dose: 650 mg Documented by: Sodium Chloride (Flush Normal Saline 10 Ml) 10 ml IV BID [facility] Last Admin: 11/15/20 09:00 Dose: 10 ml Documented by: Sodium Chloride (Sodium Chloride 0.9% 10ml Inj) 10 ml IV UD PRN PRN Reason: Diluant Last Admin: 11/14/20 20:25 Dose: 10 ml Documented by: Tramadol HCl (Tramadol Hcl 50 Mg Tab) 50 mg PO BID PRN PRN Reason: Pain scale 5-7 (Moderate) Last Admin: 11/15/20 02:55 Dose: 50 mg Documented by: Assessment And Plan - Plan Antibiotics: current zyvox: start: 11/12 stop: 12/12 Levaquin start: 11/09 stop: 12/12 DC: daptomycin start: 11/08 stop: 11/12 Assessment: -osteomyelitis of left BKA stump -bilateral multifocal pneumonia vs pulmonary edema -leukocytosis -diabetes type 2 -CKD stage 4 -chronic tobacco user -anemia Plan: -MRI from previous visit confirmed osteomyelitis left BKA stump. Patient on the antibiotic course of 6 weeks. Patient switched from vancomycin to daptomycin due to worsening kidney function. Patient had code blue on 11/12: Daptomycin switch to zyvox due to possible lung damage. Ordered daily CBCs to monitor patient's platelet count, if it continues to drop switch patient to vancomycin and continue to monitor renal function. -chest x-ray and chest CT shows bilateral pulmonary opacities, pneumonia versus pulmonary edema. Continue current antibiotic treatments. Recommend pulmonology consults and sputum culture. -leukocytosis: Resolved WBC now within normal range. Previous Increase in white blood cell count could be due to trauma patient experienced outpatient resulting in left collarbone fx and extensive bruising to the neck and upper extremity. -iron deficiency anemia: Maintain hemoglobin of at least 7.0 recommend transfusion hemoglobin drops below 7.0. Hemoglobin up trending, 10.3 on 11/15. -renally dose antibiotics situations worsening CKD. Renal function shows improvement. -medical management per primary team -continue monitor CBC and BMP -continue to monitor for signs of infection Plan of care discussed with Dr. Payton Thank you for consultation
--- NOTE | 2020-11-15 13:19 | P.PN ---
Subjective Date of Service: 11/15/20 Chief Complaint: Resp failure Subjective: Improving (extubated yesterday, doing well, down to 3-4 L NC. raspy voice, weak cough, concern for aspiration. diuresed significantly. slight confusion) Review of Systems 10-point ROS is otherwise unremarkable Physical Examination - Vital Signs Temperature: 98.1 F Blood Pressure: 156/85 Pulse: 78 Respirations: 19 Pulse Ox (%): 98 Assessment & Plan Physician Review Additional Text: Physical Exam General: NAD, confused, AAOx1, drowsy HEENT: normal conjunctiva, sclera anicteric Respiratory: Diminished, clear to auscultation bilaterally, on 4L NC Cardiovascular: No edema, Regular rate/rhythm, Normal S1 S2 Gastrointestinal: Soft and benign, Non-distended Musculoskeletal: L BKA, ulcer healing. L sternoclavicular swelling and tenderness Skin: multiple large scattered ecchymosis on patients L chest/shoulder Problem list Acute hypoxemic respiratory failure secondary to Pneumonia and pulmonary edema CALDERON on CKD 4 L clavicular fracture Left BKA stump ulcer, with acute osteomyelitis Diabetes mellitus, [id number] HTN Chronic tobacco use Acute on Chronic anemia, iron deficiency and heme+ stool Hep C improved significantly with diuresis and steroids Continue with his zyvox and Levaquin (ID recommended zyvox over vanc) lasix dc'd on 11/14 reduce steroids further family updated at bedside anticipate transfer to floor later today Cardiology consulted. Elevated troponin deemed secondary to CALDERON/CKD, hypoxia and anemia. Patient also has early or mild findings of liver cirrhosis with elevated liver e nzymes. - discussed with family, report they were just told a few days ago that patient was positive for Hep C - tested in [place], they are unsure of results other than "positive". elevated LFTs possibly due to congestion. Pt's charts were requested from [facility] 11/13 review of some results show +HCV in september of this year. Reviewed with ID- patient will need to f/u with general road production manager for further planning/management chronic iron deficiency anemia, s/p [address] Goldstein consulted - EGD done showing mild atrophic gastritis. Continue protonix multiple ecchymosis and L clavicle highly suspicious for recent trauma, however family and patient deny any fall/trauma. unclear when patient fractured L clavicle - patient and family report first noticing ecchymosis on Sunday at home. Deny any trauma/fall when patient was at home. review of EMR revealed ER visit on 11/06 was first time ecchymosis and L clavicle fracture were first noted Ortho consulted - recommend no surgical treatment, continue medical management, sling ordered Dispo: recommend SNF, anticipate home - family refused SNF on last discharge anticipate hospitalization > 2 days. possible transfer to floor today Time Spent Managing Pts Care (In Minutes): 35
--- NOTE | 2020-11-15 20:35 | PN ---
Date of Progress Note: 11/15/2020 Subjective: The patient is alert, awake, still awaiting for speech therapy. His breathing seems to be stable. Objective: Vital Signs: His blood pressure has gone up significantly with last blood pressure readi ng at 156/85, before that 180/96; his respirations are 19; his pulse is between 70 and 80, last pulse was 78; he is afebrile; his O2 sats are 98% to 100% on 2 L nasal cannula. His pain level is between 0 and 2. General: Currently, he is comfortable, able to answer some questions. Lungs: Clear to auscultation. Abdomen: Soft. Extremities: No edema. Heart: Sounds are regular. Medications: Medications in the chart reviewed. The patient is getting 10 mg of amlodipine. He is also on hydralazine 5 mg IV p.r.n. for systolic blood pressure greater than 160. He had a dose of hy dralazine 25 mg p.o. b.i.d., which I am increasing to t.i.d. He is getting Levaquin and linezolid. Laboratory Data: Lab data reviewed. WBC count 8.8, hemoglobin 10.3, hematocrit 32, platelet count o f 179. Chemistries show sodium 143, potassium 3.1, chloride 106, bicarb 30, BUN 74, creatinine 1.86. Assessment And Plan: 1.Acute kidney injury, hypertension, hypokalemia, status post respiratory failure. Currently n.p.o. , status post extubation. Awaiting speech evaluation for being able to swallow. The patient looks c linically well. Blood pressure is on the higher side. Discussed with the nurse. We will start hydr alazine at 25 mg t.i.d., currently on b.i.d. He is clinically looking well, but looking now on the d ry/slightly volume depleted side. If the patient is not able to pass the speech and swallow evaluati on, may need some gentle IV hydration with close monitoring of his respiratory status. 2.Hypokalemia. Potassium has been repleted. 3.Acute kidney injury. Creatinine is improved with volume status correction and with blood pressure improvement. Hopefully, with hydralazine increased, the blood pressure can come under better contro l with a goal of at least getting it down below 130 systolic. If blood pressure continues to stay hi gh, may consider increasing hydralazine to 50 mg t.i.d. tomorrow or add further medications as needed . /MELY Voice ID: [id number] Report ID: [id number]
[2020-11-15] MEDS ORDERED: POTASSIUM CL SA 10 MEQ TAB PO ONE (20:47)
[2020-11-15] MEDS ORDERED: POTASSIUM 25 MEQ EFFERV TAB PO ONE (21:00)
[2020-11-15] MEDS: MELATONIN 5 MG TABLET PO PRN (22:22)
[2020-11-16] MEDS: INSULIN -REGULAR HUMAN 50 UNIT/0.5 ML ML SQ SCH ×4 (00:21→17:18)
[2020-11-16] MEDS: TRAMADOL HCL 50 MG TAB PO PRN ×2 (03:08→16:37)
[2020-11-16] MEDS: ONDANSETRON 4 MG/2 ML VIAL IV PRN (04:48)
[2020-11-16] MEDS: METOPROLOL TAR 25 MG TAB PO SCH ×2 (06:13→17:17)
[2020-11-16] MEDS: VITAMIN D 5,000 UNIT CAP PO SCH (09:18)
[2020-11-16] MEDS: LACTOBACILLUS/ACIDOPHILUS TAB PO SCH ×3 (09:18→21:04)
[2020-11-16] MEDS: SODIUM BICARB 325 MG TAB PO SCH ×3 (09:19→16:38)
[2020-11-16] MEDS: AMLODIPINE 5 MG TAB PO SCH (09:19)
[2020-11-16] MEDS: CALCITROL 0.25 MCG CAP PO SCH (09:19)
[2020-11-16] MEDS: FAMOTIDINE 20 MG/2 ML VIAL IV SCH (09:20)
[2020-11-16] MEDS: HYDRALAZINE HCL 25 MG TABLET PO SCH ×3 (09:20→21:04)
[2020-11-16] MEDS: HEPARIN 5000 UNIT/ML 1 ML VIAL SQ SCH ×2 (09:20→21:04)
[2020-11-16] MEDS: COLLAGENASE 30 GM OINTMENT TOP SCH (09:20)
[2020-11-16] MEDS: METHYLPREDNISOLONE 40 MG INJ IV SCH ×2 (09:20→21:04)
[2020-11-16] MEDS: LINEZOLID 600 MG IVPB 600 MG/300 ML BAG IV SCH ×2 (09:20→21:05)
[2020-11-16] MEDS: ENSURE ENLIVE 237 ML CAN PO SCH ×2 (09:21→21:00)
--- NOTE | 2020-11-16 11:55 | P.PN ---
Subjective Date of Service: 11/16/20 Chief Complaint: Resp failure Patient seen and examined-transferred to floor from ICU. No new labs as of yet. Vital stable, patient is hypertensive with a BP of 178/89. Placed platelet count remained stable. Review of Systems 10-point ROS is otherwise unremarkable Physical Examination - Vital Signs Temperature: 98.2 F Blood Pressure: 178/89 Pulse: 67 Respirations: 17 Pulse Ox (%): 94 - Physical Exam General: Cachectic, Confused HEENT: Atraumatic, Normocephalic Neck: Supple, 2+ carotid pulse no bruit Respiratory: Clear to auscultation bilaterally Cardiovascular: No edema, Normal S1 S2 Capillary refill: <2 Seconds Gastrointestinal: Normal bowel sounds, Hypoactive Integumentary: Other (Extensive bruising to left neck and chest area. left collerbone fracture with swelling.) - Studies Temp Pulse Resp BP Pulse Ox 98.2 F 67 17 178/89 H 94 11/16/20 08:00 11/16/20 09:19 11/16/20 08:00 11/16/20 09:19 11/16/20 04:08 Active Medications Albuterol Sulfate (Albuterol 2.5 Mg/3 Ml Neb Lorena) 2.5 mg NEB [id number] PRN PRN Reason: SHORTNESS OF BREATH Amlodipine Besylate (Amlodipine 5 Mg Tab) 10 mg PO DAILY [facility] Last Admin: 11/16/20 09:19 Dose: 10 mg Documented by: Benzonatate (Benzonatate 100 Mg Cap) 100 mg PO TID PRN PRN Reason: COUGH Last Admin: 11/09/20 22:07 Dose: 100 mg Documented by: Calcitriol (Calcitrol 0.25 Mcg Cap) 0.5 mcg PO DAILY [facility] Last Admin: 11/16/20 09:19 Dose: 0.5 mcg Documented by: Cholecalciferol (Vitamin D 5,000 Unit Cap) 5,000 unit PO DAILY [facility] Last Admin: 11/16/20 09:18 Dose: 5,000 unit Documented by: Collagenase (Collagenase 30 Gm Ointment) 0 appl TOP DAILY [facility] Last Admin: 11/16/20 09:20 Dose: 1 ea Documented by: Famotidine (Famotidine 20 Mg/2 Ml Vial) 20 mg IV DAILY [facility]; Protocol Last Admin: 11/16/20 09:20 Dose: 20 mg Documented by: Heparin Sodium (Porcine) (Heparin 5000 Unit/Ml 1 Ml Vial) 5,000 unit SQ Q12HR [facility] Last Admin: 11/16/20 09:20 Dose: 5,000 unit Documented by: Hydralazine HCl (Hydralazine Hcl 20 Mg/Ml Vial) 5 mg IV Q6HP PRN PRN Reason: FOR SBP>160 OR DBP>100 [facility] Last Admin: 11/14/20 23:58 Dose: 5 mg Documented by: Hydralazine HCl (Hydralazine Hcl 25 Mg Tablet) 50 mg PO TID [facility] Linezolid (Zyvox 600 Mg/300 Ml Ivpb (Premix)) 600 mg in 300 mls @ 300 mls/hr IV Q12HR [facility]; Protocol Last Admin: 11/16/20 09:20 Dose: 300 mls Documented by: Levofloxacin/Dextrose (Levaquin 250mg/50 Ml Ivpb) 250 mg in 50 mls @ 50 mls/hr IV Q48H [facility]; Protocol Last Admin: 11/15/20 08:35 Dose: 50 mls Documented by: Insulin Human Regular (Insulin -Regular Human 50 Unit/0.5 Ml Ml) 0 unit SQ Q6HR [facility]; Protocol Last Admin: 11/16/20 06:15 Dose: 3 unit Documented by: Lactobacillus Acidoph/Bulgaricus (Lactobacillus/Acidophilus Tab) 1 tab PO TID [facility] Last Admin: 11/16/20 09:18 Dose: 1 tab Documented by: Melatonin (Melatonin 5 Mg Tablet) 10 mg PO BEDTIME PRN PRN PRN Reason: insommnia Last Admin: 11/15/20 22:22 Dose: 10 mg Documented by: Methylprednisolone Sodium Succinate (Methylprednisolone 40 Mg Inj) 40 mg IV BID [facility] Last Admin: 11/16/20 09:20 Dose: 40 mg Documented by: Metoprolol Tartrate (Metoprolol Tar 25 Mg Tab) 25 mg PO BID 6AM 6PM [facility] Last Admin: 11/16/20 06:13 Dose: 25 mg Documented by: Nutritional Formula (Ensure Enlive 237 Ml Can) 237 ml PO BID [facility] Last Admin: 11/16/20 09:21 Dose: 237 ml Documented by: Ondansetron HCl (Ondansetron 4 Mg/2 Ml Vial) 4 mg IV Q6HP PRN PRN Reason: NAUSEA / VOMITING Last Admin: 11/16/20 04:48 Dose: 4 mg Documented by: Sodium Bicarbonate (Sodium Bicarb 325 Mg Tab) 650 mg PO TIDWM [facility] Last Admin: 11/16/20 09:19 Dose: 650 mg Documented by: Sodium Chloride (Flush Normal Saline 10 Ml) 10 ml IV BID [facility] Last Admin: 11/16/20 09:00 Dose: 10 ml Documented by: Sodium Chloride (Sodium Chloride 0.9% 10ml Inj) 10 ml IV UD PRN PRN Reason: Diluant Last Admin: 11/14/20 20:25 Dose: 10 ml Documented by: Tramadol HCl (Tramadol Hcl 50 Mg Tab) 50 mg PO BID PRN PRN Reason: Pain scale 5-7 (Moderate) Last Admin: 11/16/20 03:08 Dose: 50 mg Documented by: Assessment And Plan - Plan Antibiotics: current zyvox: start: 11/12 stop: 12/12 Levaquin start: 11/09 stop: 12/12 DC: daptomycin start: 11/08 stop: 11/12 Assessment: -osteomyelitis of left BKA stump -bilateral multifocal pneumonia vs pulmonary edema -leukocytosis -diabetes type 2 -CKD stage 4 -chronic tobacco user -anemia Plan: -MRI from previous visit confirmed osteomyelitis left BKA stump. Patient on the antibiotic course of 6 weeks. Patient switched from vancomycin to daptomycin due to worsening kidney function. Patient had code blue on 11/12: Daptomycin switch to zyvox due to possible lung damage. Ordered daily CBCs to monitor patient's platelet count, if it continues to drop switch patient to vancomycin and continue to monitor renal function. -chest x-ray and chest CT shows bilateral pulmonary opacities, pneumonia versus pulmonary edema. Continue current antibiotic treatments. Pulmonology following, sputum studies revealed normal respiratory simi. -leukocytosis: Resolved WBC now within normal range. Previous Increase in white blood cell count could be due to trauma patient experienced outpatient resulting in left collarbone fx and extensive bruising to the neck and upper extremity. -iron deficiency anemia: Maintain hemoglobin of at least 7.0 recommend transfusion hemoglobin drops below 7.0. Hemoglobin up trending, 10.3 on 11/15. -renally dose antibiotics situations worsening CKD. Renal function shows improvement. -medical management per primary team -continue monitor CBC and BMP -continue to monitor for signs of infection Plan of care discussed with Dr. Payton Thank you for consultation
[2020-11-16 12:49] LABS: Potassium 3.6 mmol/L (3.5-5.1)
[2020-11-16 15:03] LABS: HIV AG/AB 4TH GEN Non-reactive (Non-reactive)
--- NOTE | 2020-11-16 16:11 | P.PN ---
Subjective Date of Service: 11/16/20 Chief Complaint: Resp failure Patient extubated yesterday. He is tolerating oxygen by nasal cannula. NG tube is in place. Patient states he wants to eat. Physical Examination - Vital Signs Temperature: 97.9 F Blood Pressure: 161/81 Pulse: 71 Respirations: 17 Pulse Ox (%): 97 - Physical Exam General: Alert, In no apparent distress HEENT: Other (NGT) Neck: JVD not distended Respiratory: Diminished Cardiovascular: No edema, Regular rate/rhythm, Normal S1 S2 Gastrointestinal: Normal bowel sounds, Soft and benign, Non-distended Musculoskeletal: Other (left BKA.) Neurological: Normal strength at 5/5 x4 extr Assessment And Plan - Current Problems (Diagnosis) (1) Pneumonia Current Visit: Yes Status: Acute (2) Pulmonary edema Current Visit: Yes Status: Acute (3) Anemia Current Visit: No Status: Acute Qualifiers: Anemia type: iron deficiency Iron deficiency anemia type: unspecified iron deficiency Qualified Code(s): D50.9 - Iron deficiency anemia, unspecified (4) Elevated troponin Current Visit: No Status: Acute (5) Acute worsening of stage 4 chronic kidney disease Current Visit: Yes Status: Acute (6) Osteomyelitis of tibia Current Visit: No Status: Acute (7) Pressure ulcer of BKA stump, stage 2 Current Visit: No Status: Resolved - Plan Patient with diffuse bilateral lung opacities needing oxygen. Pneumonia versus pulmonary edema. Procalcitonin only mildly elevated Cardiology input appreciated. Elevated troponin deemed secondary to renal insulin sensitive, hypoxia and anemia. Patient also has early or mild findings of liver cirrhosis elevated liver enzymes. This could be secondary to hepatic congestion heart failure. I favor pneumonia over pulmonary edema based on CT chest findings. Continue antibiotics. Nephrology input appreciated Status post 1 unit PRBC transfusion. Lasix discontinued. Serum creatinine trended down after albumin infusion. Titrate oxygen Infectious Disease consult. Continue IV Levaquin to cover pneumonia. Vancomycin changed to daptomycin due to concern for volume overload with vancomycin volume. Pain management as needed. Dr. Goldstein input appreciated. EGD done showing mild atrophic gastritis. Protonix. Monitor CBC and electrolytes Physician Review Additional Text: Problem list Acute hypoxemic respiratory failure secondary to Pneumonia and pulmonary edema CALDERON on CKD 4 L clavicular fracture Left BKA stump ulcer, with acute osteomyelitis Diabetes mellitus, [id number] HTN Chronic tobacco use Acute on Chronic anemia, iron deficiency and heme+ stool Hep C Respiratory status improved significantly with diuresis and steroids. Patient is tolerating oxygen by nasal cannula. Continue with his zyvox and Levaquin (ID recommended zyvox over vanc) lasix dc'd on 11/14 Swallow evaluation done. PT recommend MBS. Patient kept NPO. Seen by. Cardiology Elevated troponin deemed secondary to CALDERON/CKD, hypoxia and anemia. Patient also has early or mild findings of liver cirrhosis with elevated liver enzymes. - discussed with family, report they were just told a few days ago that patient was positive for Hep C - tested in [place], they are unsure of results other than "positive". elevated LFTs possibly due to congestion. Pt's charts were requested from [facility] 11/13 review of some results show +HCV in september of this year. Reviewed with ID- patient will need to f/u with drug safety scientist for further planning/management chronic iron deficiency anemia, s/p [address] Goldstein consulted - EGD done showing mild atrophic gastritis. Continue protonix multiple ecchymosis and L clavicle highly suspicious for recent trauma, however family and patient deny any fall/trauma. unclear when patient fractured L clavicle - patient and family report first noticing ecchymosis on Sunday at home. Deny any trauma/fall when patient was at Ortho consulted - recommend no surgical treatment, continue medical management, sling ordered Dispo: recommend SNF, anticipate home - family refused SNF on last discharge anticipate hospitalization > 2 days.
[2020-11-16] MEDS ORDERED: NA CHLORIDE 0.9% 250 ML ONE (17:45)
[2020-11-16] MEDS ORDERED: KCL 20 MEQ/100 mL IVPB 20 MEQ/100 ML BAG IV SCH (18:00)
--- NOTE | 2020-11-16 19:42 | PN ---
Date of Progress Note: 11/16/2020 Subjective: The patient is alert, awake, able to answer some questions. His and son or another young family members in the room with him. The had some questions that we discussed. The jean ent is wanting to eat and drink, but is awaiting his speech study. He denies any pain currently. Th e and the patient also admits that he has been drinking heavily. I counseled him in some detail about the problems with alcohol use in excess and for him to completely stop now that he has been of f alcohol while in the hospital. The patient seems to be agreeable to that. He says he will try. H e understands the risks of this. Objective: Vital Signs: Blood pressure is consistently running high between 160-180 reading. His l ast blood pressure is 178/89, pulse of 67, respirations are 17. He seems to have some discomfort bec ause of the NG tube, but other than that seems comfortable, O2 sats are 94% on room air. Lungs: Clear to auscultation. Abdomen: Soft. Extremities: Reveal no edema. Heart: Sounds are regular. Laboratory Data: Lab data is reviewed. The patient's labs show WBC count 8.8, hemoglobin 10.3, reymundo tocrit 32, platelet count of 179. Chemistry shows sodium 147, potassium 3.6, chloride 109, bicarb is 32, BUN is 70, creatinine is 1.75. His calcium level is 8.4. Assessment And Plan: the patient should be able to start eating and drinking soon. We wo uld like to be careful not giving him any IV fluids if we do not have to, but if he does not eat and drink by later today or definitely back tomorrow, we will need IV fluids. At this point, he is getti ng some Ensure through the NG tube. His sodium has gone up to 147. If he does not have any p.o. int chris by tomorrow, we will need to start him perhaps on D5 half-normal saline. We will need to do that cautiously as patient has been in significant respiratory failure with most of the fluid being in th e lungs and despite the fact that he does not have edema. He had gotten quite sick requiring intubat ion with volume overload. Hypertension. At this point, the blood pressure has come up to 171 80 range. We will go ahead and i ncrease his hydralazine further to 50 mg t.i.d. also will give him a dose currently. May need to fur ther adjust his medications as needed. If the blood pressure continues to stay high, especially as h eddie starts eating. He is currently on amlodipine 10 mg. He is also on metoprolol 25 mg p.o. b.i.d. Assessment And Plan: the patient is a pleasant gentleman seen with his in t he room. He is wanting to eat and drink, but awaiting speech evaluation. I discuss with the nursing staff to see when the speech evaluation can be done and they will also discuss with the babatundeing alcira horton to see if any thing can be done to expedite this. In the meanwhile, the patient is getting some feeds through NG tube. He may benefit from IV fluids if he is not able to eat and drink by vira barragan. We will increase his hydralazine and monitor closely for blood pressure control. If it does n ot improve further, we will need to adjust with the addition of further medications. /MELY Voice ID: [id number] Report ID: [id number]
[2020-11-17] MEDS: HYDRALAZINE HCL 20 MG/ML VIAL IV PRN (00:30)
[2020-11-17] MEDS: ONDANSETRON 4 MG/2 ML VIAL IV PRN ×2 (01:22→22:44)
[2020-11-17] MEDS: TRAMADOL HCL 50 MG TAB PO PRN (04:41)
[2020-11-17] MEDS: METOPROLOL TAR 25 MG TAB PO SCH ×2 (05:47→18:25)
[2020-11-17] MEDS: INSULIN -REGULAR HUMAN 50 UNIT/0.5 ML ML SQ SCH ×4 (06:01→18:00)
[2020-11-17 06:22] LABS: Potassium 3.7 mmol/L (3.5-5.1)
[2020-11-17] MEDS ORDERED: KCL 20 MEQ/100 mL IVPB 20 MEQ/100 ML BAG IV ONE (08:00)
[2020-11-17] MEDS ORDERED: TRAMADOL HCL 50 MG TAB PO PRN (08:34)
[2020-11-17] MEDS: HYDRALAZINE HCL 25 MG TABLET PO SCH ×3 (08:46→22:44)
[2020-11-17] MEDS: SODIUM BICARB 325 MG TAB PO SCH ×3 (08:46→16:20)
[2020-11-17] MEDS: LACTOBACILLUS/ACIDOPHILUS TAB PO SCH ×3 (08:46→22:44)
[2020-11-17] MEDS: AMLODIPINE 5 MG TAB PO SCH (08:47)
[2020-11-17] MEDS: HEPARIN 5000 UNIT/ML 1 ML VIAL SQ SCH ×2 (08:47→22:44)
[2020-11-17] MEDS: METHYLPREDNISOLONE 40 MG INJ IV SCH ×2 (08:47→22:44)
[2020-11-17] MEDS: CALCITROL 0.25 MCG CAP PO SCH (08:47)
[2020-11-17] MEDS: FAMOTIDINE 20 MG/2 ML VIAL IV SCH (08:47)
[2020-11-17] MEDS: VITAMIN D 5,000 UNIT CAP PO SCH (08:48)
[2020-11-17] MEDS: COLLAGENASE 30 GM OINTMENT TOP SCH (08:48)
[2020-11-17] MEDS: Levofloxacin 250mg IV 250 MG/50 ML BAG IV SCH (08:49)
[2020-11-17] MEDS: LINEZOLID 600 MG IVPB 600 MG/300 ML BAG IV SCH ×2 (08:50→22:45)
[2020-11-17] MEDS: ENSURE ENLIVE 237 ML CAN PO SCH ×2 (09:00→22:44)
[2020-11-17] MEDS ORDERED: NA CHLORIDE 0.9% 250 ML ONE (09:02)
--- NOTE | 2020-11-17 11:31 | P.PN ---
Subjective Date of Service: 11/17/20 Chief Complaint: Resp failure Patient seen and examined-transferred to floor from ICU. Discussed with patient and family about continuation of care at [facility]-family states they will think about it. Review of Systems 10-point ROS is otherwise unremarkable Physical Examination - Vital Signs Temperature: 97.8 F Blood Pressure: 183/83 Pulse: 66 Respirations: 20 Pulse Ox (%): 96 - Studies Temp Pulse Resp BP Pulse Ox 97.8 F 66 20 183/83 H 96 11/17/20 08:00 11/17/20 08:47 11/17/20 08:00 11/17/20 08:47 11/17/20 08:00 Active Medications Albuterol Sulfate (Albuterol 2.5 Mg/3 Ml Neb Lorena) 2.5 mg NEB [id number] PRN PRN Reason: SHORTNESS OF BREATH Amlodipine Besylate (Amlodipine 5 Mg Tab) 10 mg PO DAILY [facility] Last Admin: 11/17/20 08:47 Dose: 10 mg Documented by: Benzonatate (Benzonatate 100 Mg Cap) 100 mg PO TID PRN PRN Reason: COUGH Last Admin: 11/09/20 22:07 Dose: 100 mg Documented by: Calcitriol (Calcitrol 0.25 Mcg Cap) 0.5 mcg PO DAILY [facility] Last Admin: 11/17/20 08:47 Dose: 0.5 mcg Documented by: Cholecalciferol (Vitamin D 5,000 Unit Cap) 5,000 unit PO DAILY [facility] Last Admin: 11/17/20 08:48 Dose: 5,000 unit Documented by: Collagenase (Collagenase 30 Gm Ointment) 0 appl TOP DAILY [facility] Last Admin: 11/17/20 08:48 Dose: 1 ea Documented by: Famotidine (Famotidine 20 Mg/2 Ml Vial) 20 mg IV DAILY [facility]; Protocol Last Admin: 11/17/20 08:47 Dose: 20 mg Documented by: Heparin Sodium (Porcine) (Heparin 5000 Unit/Ml 1 Ml Vial) 5,000 unit SQ Q12HR [facility] Last Admin: 11/17/20 08:47 Dose: 5,000 unit Documented by: Hydralazine HCl (Hydralazine Hcl 20 Mg/Ml Vial) 5 mg IV Q6HP PRN PRN Reason: FOR SBP>160 OR DBP>100 MMHG Last Admin: 11/17/20 00:30 Dose: 5 mg Documented by: Hydralazine HCl (Hydralazine Hcl 25 Mg Tablet) 50 mg PO TID [facility] Last Admin: 11/17/20 08:46 Dose: 50 mg Documented by: Linezolid (Zyvox 600 Mg/300 Ml Ivpb (Premix)) 600 mg in 300 mls @ 300 mls/hr IV Q12HR [facility]; Protocol Last Admin: 11/17/20 08:50 Dose: 300 mls Documented by: Levofloxacin/Dextrose (Levaquin 250mg/50 Ml Ivpb) 250 mg in 50 mls @ 50 mls/hr IV Q48H [facility]; Protocol Last Admin: 11/17/20 08:49 Dose: 50 mls Documented by: Insulin Human Regular (Insulin -Regular Human 50 Unit/0.5 Ml Ml) 0 unit SQ Q6HR [facility]; Protocol Last Admin: 11/17/20 06:01 Dose: 3 unit Documented by: Lactobacillus Acidoph/Bulgaricus (Lactobacillus/Acidophilus Tab) 1 tab PO TID [facility] Last Admin: 11/17/20 08:46 Dose: 1 tab Documented by: Melatonin (Melatonin 5 Mg Tablet) 10 mg PO BEDTIME PRN PRN PRN Reason: insommnia Last Admin: 11/15/20 22:22 Dose: 10 mg Documented by: Methylprednisolone Sodium Succinate (Methylprednisolone 40 Mg Inj) 40 mg IV BID [facility] Last Admin: 11/17/20 08:47 Dose: 40 mg Documented by: Metoprolol Tartrate (Metoprolol Tar 25 Mg Tab) 25 mg PO BID 6AM 6PM [facility] Last Admin: 11/17/20 05:47 Dose: 25 mg Documented by: Nutritional Formula (Ensure Enlive 237 Ml Can) 237 ml PO BID [facility] Last Admin: 11/17/20 09:00 Dose: 237 ml Documented by: Ondansetron HCl (Ondansetron 4 Mg/2 Ml Vial) 4 mg IV Q6HP PRN PRN Reason: NAUSEA / VOMITING Last Admin: 11/17/20 01:22 Dose: 4 mg Documented by: Sodium Bicarbonate (Sodium Bicarb 325 Mg Tab) 650 mg PO TIDWM [facility] Last Admin: 11/17/20 08:46 Dose: 650 mg Documented by: Sodium Chloride (Flush Normal Saline 10 Ml) 10 ml IV BID [facility] Last Admin: 11/17/20 09:00 Dose: 10 ml Documented by: Sodium Chloride (Sodium Chloride 0.9% 10ml Inj) 10 ml IV UD PRN PRN Reason: Diluant Last Admin: 11/14/20 20:25 Dose: 10 ml Documented by: Tramadol HCl (Tramadol Hcl 50 Mg Tab) 50 mg PO Q6H PRN PRN Reason: Pain scale 5-7 (Moderate) Last Admin: 11/17/20 08:47 Dose: 50 mg Documented by: Assessment And Plan - Plan General: Cachectic, Confused HEENT: Atraumatic, Normocephalic Neck: Supple, 2+ carotid pulse no bruit Respiratory: Clear to auscultation bilaterally Cardiovascular: No edema, Normal S1 S2 Capillary refill: <2 Seconds Gastrointestinal: Normal bowel sounds, Hypoactive Integumentary: Other (Extensive bruising to left neck and chest area. left collerbone fracture with swelling. Ulcer to left BKA stump.) Antibiotics: current zyvox: start: 11/12 stop: 12/12 Levaquin start: 11/09 stop: 12/12 DC: daptomycin start: 11/08 stop: 11/12 Assessment: -osteomyelitis of left BKA stump -bilateral multifocal pneumonia vs pulmonary edema -leukocytosis -diabetes type 2 -CKD stage 4 -chronic tobacco user -anemia Plan: -MRI from previous visit confirmed osteomyelitis left BKA stump. Patient on the antibiotic course of 6 weeks. Patient switched from vancomycin to daptomycin due to worsening kidney function. Patient had code blue on 11/12: Daptomycin switch to zyvox due to possible lung damage. Ordered daily CBCs to monitor patient's platelet count, if it continues to drop switch patient to vancomycin and continue to monitor renal function. -chest x-ray and chest CT shows bilateral pulmonary opacities, pneumonia versus pulmonary edema. Continue current antibiotic treatments. Pulmonology following, sputum studies revealed normal respiratory simi. -leukocytosis: Resolved WBC now within normal range. Previous Increase in white blood cell count could be due to trauma patient experienced outpatient resulting in left collarbone fx and extensive bruising to the neck and upper extremity. -iron deficiency anemia: Maintain hemoglobin of at least 7.0 recommend transfusion hemoglobin drops below 7.0. Hemoglobin up trending, 10.3 on 11/15. -renally dose antibiotics situations worsening CKD. Renal function shows improvement. -medical management per primary team -continue monitor CBC and BMP -continue to monitor for signs of infection Plan of care discussed with Dr. Payton Thank you for consultation
--- NOTE | 2020-11-17 14:02 | P.PN ---
Subjective Date of Service: 11/17/20 Chief Complaint: Resp failure Patient requesting for food and water He is tolerating oxygen by nasal cannula. NG tube is in place. He is afebrile. He denies any shortness of breath. Physical Examination - Vital Signs Temperature: 97.8 F Blood Pressure: 183/83 Pulse: 66 Respirations: 20 Pulse Ox (%): 96 - Physical Exam General: Alert, In no apparent distress HEENT: Other (NGT) Neck: JVD not distended Respiratory: Clear to auscultation bilaterally, Normal air movement Cardiovascular: No edema, Regular rate/rhythm, Normal S1 S2 Gastrointestinal: Normal bowel sounds, Soft and benign, Non-distended, No tenderness Musculoskeletal: No swelling, Other (Left BKA) Integumentary: Other (Left BKA wound looks clean.) Neurological: Other (No focal motor deficits) Assessment And Plan - Current Problems (Diagnosis) (1) Pneumonia Current Visit: Yes Status: Acute (2) Pulmonary edema Current Visit: Yes Status: Acute (3) Anemia Current Visit: No Status: Acute Qualifiers: Anemia type: iron deficiency Iron deficiency anemia type: unspecified iron deficiency Qualified Code(s): D50.9 - Iron deficiency anemia, unspecified (4) Elevated troponin Current Visit: No Status: Acute (5) Acute worsening of stage 4 chronic kidney disease Current Visit: Yes Status: Acute (6) Osteomyelitis of tibia Current Visit: No Status: Acute (7) Pressure ulcer of BKA stump, stage 2 Current Visit: No Status: Resolved - Plan Patient with diffuse bilateral lung opacities needing oxygen. Pneumonia versus pulmonary edema. Procalcitonin only mildly elevated Cardiology input appreciated. Elevated troponin deemed secondary to renal insulin sensitive, hypoxia and anemia. Patient also has early or mild findings of liver cirrhosis elevated liver enzymes. This could be secondary to hepatic congestion heart failure. I favor pneumonia over pulmonary edema based on CT chest findings. Continue antibiotics. Nephrology input appreciated Status post 1 unit PRBC transfusion. Lasix discontinued. Serum creatinine trended down after albumin infusion. Titrate oxygen Infectious Disease consult. Continue IV Levaquin to cover pneumonia. Vancomycin changed to daptomycin due to concern for volume overload with vancomycin volume. Pain management as needed. Dr. Goldstein input appreciated. EGD done showing mild atrophic gastritis. Protonix. Monitor CBC and electrolytes Physician Review Additional Text: Problem list Acute hypoxemic respiratory failure secondary to Pneumonia and pulmonary edema CALDERON on CKD 4 L clavicular fracture Left BKA stump ulcer, with acute osteomyelitis Diabetes mellitus, [id number] HTN Chronic tobacco use Acute on Chronic anemia, iron deficiency and heme+ stool Hep C Respiratory status improved significantly with diuresis and steroids. Patient is tolerating oxygen by nasal cannula. Continue with his zyvox and Levaquin (ID recommended zyvox over vanc) lasix dc'd on 11/14 Swallow evaluation done. Speech therapy recommend MBS. Patient kept NPO. Diet after MBS per speech therapy recommendation. Seen by cardiology. Elevated troponin deemed secondary to CALDERON/CKD, hypoxia and anemia. Patient also has early or mild findings of liver cirrhosis with elevated liver enzymes. - discussed with family, report they were just told a few days ago that patient was positive for Hep C - tested in [place], they are unsure of results other than "positive". elevated LFTs possibly due to congestion. Pt's charts were requested from [facility] 11/13 Patient will need to f/u with clinical research coordinator for further planning/management of hepatitis-C. chronic iron deficiency anemia, s/p [address] Goldstein consulted - EGD done showing mild atrophic gastritis. Continue protonix. Hemoglobin has been stable. multiple ecchymosis and L clavicle highly suspicious for recent trauma, however family and patient deny any fall/trauma. unclear of the acuityof his fractured L clavicle. Ortho consulted - recommend no surgical treatment, continue medical management, sling ordered Dispo: Patient may be appropriate for LTAC.
--- NOTE | 2020-11-17 16:14 | RAD REPORT ---
EXAM DESCRIPTION: RAD - Barium Swallow Modified - 11/17/2020 4:08 pm CLINICAL HISTORY: recommended by Speech Therapy COMPARISON: None. TECHNIQUE: The patient was given liquid, semi-solid and solid forms of barium. Lateral view fluorosc opic imaging was performed in conjunction with speech pathology service. FINDINGS: Cineloop acquisitions: 49 Fluoro time: 6 minutes 46 seconds Laryngeal penetration: Not cleared with thin liquid (by cup), nectar, and honey (trace) Aspiration: (ineffective cough), with thin liquids by straw Pharyngeal residue: Vallecular Mild with thin liquid, nectar, Moderate with honey, puree, severe with yu cracker Pyriform: mild with thin, moderate with nectar, honey, puree, mild with yu cracker. 1 sec swallow delay, decreased epiglottic inversion, decreased BOT retraction, weak reflexive cough, decreased UES opening, Decreased hyloaryngeal exclusion. IMPRESSION: Modified barium swallow as summarized above and fully detailed on speech pathology repor denia
--- NOTE | 2020-11-17 21:54 | P.PN ---
Date of Service: 11/17/20 Vital Signs Temp Pulse Resp BP Pulse Ox 98.1 F 71 19 180/87 H 93 11/17/20 20:00 11/17/20 20:00 11/17/20 20:00 11/17/20 20:00 11/17/20 20:00 Medications Albuterol Sulfate (Albuterol 2.5 Mg/3 Ml Neb Lorena) 2.5 mg NEB [id number] PRN PRN Reason: SHORTNESS OF BREATH Amlodipine Besylate (Amlodipine 5 Mg Tab) 10 mg PO DAILY [facility] Last Admin: 11/17/20 08:47 Dose: 10 mg Documented by: Benzonatate (Benzonatate 100 Mg Cap) 100 mg PO TID PRN PRN Reason: COUGH Last Admin: 11/09/20 22:07 Dose: 100 mg Documented by: Calcitriol (Calcitrol 0.25 Mcg Cap) 0.5 mcg PO DAILY [facility] Last Admin: 11/17/20 08:47 Dose: 0.5 mcg Documented by: Cholecalciferol (Vitamin D 5,000 Unit Cap) 5,000 unit PO DAILY [facility] Last Admin: 11/17/20 08:48 Dose: 5,000 unit Documented by: Collagenase (Collagenase 30 Gm Ointment) 0 appl TOP DAILY [facility] Last Admin: 11/17/20 08:48 Dose: 1 ea Documented by: Famotidine (Famotidine 20 Mg/2 Ml Vial) 20 mg IV DAILY [facility]; Protocol Last Admin: 11/17/20 08:47 Dose: 20 mg Documented by: Heparin Sodium (Porcine) (Heparin 5000 Unit/Ml 1 Ml Vial) 5,000 unit SQ Q12HR [facility] Last Admin: 11/17/20 08:47 Dose: 5,000 unit Documented by: Hydralazine HCl (Hydralazine Hcl 20 Mg/Ml Vial) 5 mg IV Q6HP PRN PRN Reason: FOR SBP>160 OR DBP>100 MMHG Last Admin: 11/17/20 00:30 Dose: 5 mg Documented by: Hydralazine HCl (Hydralazine Hcl 25 Mg Tablet) 50 mg PO TID [facility] Last Admin: 11/17/20 13:41 Dose: 50 mg Documented by: Linezolid (Zyvox 600 Mg/300 Ml Ivpb (Premix)) 600 mg in 300 mls @ 300 mls/hr IV Q12HR [facility]; Protocol Last Admin: 11/17/20 08:50 Dose: 300 mls Documented by: Levofloxacin/Dextrose (Levaquin 250mg/50 Ml Ivpb) 250 mg in 50 mls @ 50 mls/hr IV Q48H [facility]; Protocol Last Admin: 11/17/20 08:49 Dose: 50 mls Documented by: Insulin Human Regular (Insulin -Regular Human 50 Unit/0.5 Ml Ml) 0 unit SQ Q6HR [facility]; Protocol Last Admin: 11/17/20 18:00 Dose: 3 unit Documented by: Lactobacillus Acidoph/Bulgaricus (Lactobacillus/Acidophilus Tab) 1 tab PO TID [facility] Last Admin: 11/17/20 13:41 Dose: 1 tab Documented by: Melatonin (Melatonin 5 Mg Tablet) 10 mg PO BEDTIME PRN PRN PRN Reason: insommnia Last Admin: 11/15/20 22:22 Dose: 10 mg Documented by: Methylprednisolone Sodium Succinate (Methylprednisolone 40 Mg Inj) 40 mg IV BID [facility] Last Admin: 11/17/20 08:47 Dose: 40 mg Documented by: Metoprolol Tartrate (Metoprolol Tar 25 Mg Tab) 25 mg PO BID 6AM 6PM [facility] Last Admin: 11/17/20 18:25 Dose: 25 mg Documented by: Nutritional Formula (Ensure Enlive 237 Ml Can) 237 ml PO BID [facility] Last Admin: 11/17/20 09:00 Dose: 237 ml Documented by: Ondansetron HCl (Ondansetron 4 Mg/2 Ml Vial) 4 mg IV Q6HP PRN PRN Reason: NAUSEA / VOMITING Last Admin: 11/17/20 01:22 Dose: 4 mg Documented by: Sodium Bicarbonate (Sodium Bicarb 325 Mg Tab) 650 mg PO TIDWM [facility] Last Admin: 11/17/20 16:20 Dose: 650 mg Documented by: Sodium Chloride (Flush Normal Saline 10 Ml) 10 ml IV BID [facility] Last Admin: 11/17/20 09:00 Dose: 10 ml Documented by: Sodium Chloride (Sodium Chloride 0.9% 10ml Inj) 10 ml IV UD PRN PRN Reason: Diluant Last Admin: 11/14/20 20:25 Dose: 10 ml Documented by: Tramadol HCl (Tramadol Hcl 50 Mg Tab) 50 mg PO Q6H PRN PRN Reason: Pain scale 5-7 (Moderate) Last Admin: 11/17/20 08:47 Dose: 50 mg Documented by: Microbiology Results 11/06/20 19:37 Blood - Blood Aerobic Blood Culture - Final No growth in 5 days. 11/06/20 19:37 Blood - Blood Anaerobic Blood Culture - Final No growth in 5 days. 11/06/20 19:46 Blood - Blood Aerobic Blood Culture - Final No growth in 5 days. 11/06/20 19:46 Blood - Blood Anaerobic Blood Culture - Final No growth in 5 days. Assessment/ Plan: Nephrology/ ICU Feeling better today. CPS improving. Limited IH/ ROS due to AMS Vitals, medications, blood work and imaging reviewed in the chart. NAD. MMM. Neck supple. BL Rales. RRR. Soft Abd. No C/C/E. No rash. AAO. Normal Speech. Left BKA. A/P: Continue the current POC and Medications other than the changes listed. AM Labs PRN. Recommend daily weight. Please see the orders for complete details. CALDERON likely due hypovolemia CKD IV -No NSAIDs Hypernatremia -Encourage hydration Hyperkalemia/ Hypokalemia -Replete potassium Acidosis -Discontinue oral bicarb Hypocalcemia -Continue Vitamin D HTN with tachycardia -Continue Metoprolol 25mg BID -Continue Amlodipine Moderate malnutrition -Encourage nutrition Anemia in chronic illness Iron deficiency -PRBC transfusion PRN Osteomyelitis of tibia -Continue abx BL PNA with ARDS vs CHF Acute hypoxic resp failure -Continue Levaquin
[2020-11-18] MEDS ORDERED: GLUCAGON 1 MG/VIAL IM PRN (00:06)
[2020-11-18] MEDS ORDERED: D50W 25 GM/50 ML SYRINGE IV PRN ×2 (00:06→19:00)
[2020-11-18 05:14] LABS: Absolute Lymphocytes (CBC) 0.4 K/uL (0.7-4.9); Basophils % 0.2 % (0-1.3); Hematocrit 35.3 % (39.6-49.0); MPV 8.4 fL (7.6-11.3)
[2020-11-18 05:28] LABS: Potassium 4.1 mmol/L (3.5-5.1)
[2020-11-18] MEDS: METOPROLOL TAR 25 MG TAB PO SCH ×2 (05:51→17:07)
[2020-11-18] MEDS: INSULIN -REGULAR HUMAN 50 UNIT/0.5 ML ML SQ SCH ×5 (07:30→21:18)
[2020-11-18] MEDS: LINEZOLID 600 MG IVPB 600 MG/300 ML BAG IV SCH ×2 (08:32→21:11)
[2020-11-18] MEDS: COLLAGENASE 30 GM OINTMENT TOP SCH (08:33)
[2020-11-18] MEDS: FAMOTIDINE 20 MG/2 ML VIAL IV SCH (08:33)
[2020-11-18] MEDS: LACTOBACILLUS/ACIDOPHILUS TAB PO SCH ×3 (08:34→21:19)
[2020-11-18] MEDS: VITAMIN D 5,000 UNIT CAP PO SCH (08:34)
[2020-11-18] MEDS: CALCITROL 0.25 MCG CAP PO SCH (08:34)
[2020-11-18] MEDS: ENSURE ENLIVE 237 ML CAN PO SCH ×2 (08:35→21:19)
[2020-11-18] MEDS: AMLODIPINE 5 MG TAB PO SCH (08:35)
[2020-11-18] MEDS: HYDRALAZINE HCL 25 MG TABLET PO SCH ×3 (08:35→21:19)
[2020-11-18] MEDS: HEPARIN 5000 UNIT/ML 1 ML VIAL SQ SCH ×2 (08:35→21:30)
[2020-11-18] MEDS: METHYLPREDNISOLONE 40 MG INJ IV SCH ×2 (08:36→21:16)
[2020-11-18 08:38] LABS: Blood Morphology Comment NOT SEEN (NOT SEEN); Platelet Estimate DECR; White Blood Cell Scan OK (OK)
--- NOTE | 2020-11-18 09:14 | RAD REPORT ---
EXAM DESCRIPTION: RAD - Chest Single View - 11/18/2020 5:54 am CLINICAL HISTORY: resp failure Chest pain. COMPARISON: Chest Single View dated 11/15/2020; Chest Single View dated 11/14/2020; Chest Single View da altagracia 11/13/2020; Chest Single View dated 11/13/2020 FINDINGS: Portable technique limits examination quality. Mild bilateral interstitial lung opacities are present, unchanged. The heart is normal in size. Tortu ous thoracic aorta.Right-sided PICC line is stable in position. IMPRESSION: Stable chest since 11/15/2020.
--- NOTE | 2020-11-18 10:30 | P.PN ---
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 Patient is open to transfer to [facility]. Review of Systems 10-point ROS is otherwise unremarkable Physical Examination - Vital Signs Temperature: 98 F Blood Pressure: 190/90 Pulse: 71 Respirations: 20 Pulse Ox (%): 96 - Studies Temp Pulse Resp BP Pulse Ox 98 F 71 20 190/90 H 96 11/18/20 08:00 11/18/20 08:00 11/18/20 08:00 11/18/20 10:27 11/18/20 08:00 Laboratory Last Values WBC 12.30 K/uL (4.3-10.9) H D 11/06/20 18:24 RBC 2.59 M/uL (4.33-5.43) L 11/06/20 18:24 Hgb 7.1 g/dL (13.6-17.9) L* 11/06/20 18:24 Hct 22.0 % (39.6-49.0) L 11/06/20 18:24 MCV 85.2 fL (80-100) D 11/06/20 18:24 MCH 27.4 pg (27.0-35.0) 11/06/20 18:24 MCHC 32.1 g/dL (32.0-36.0) 11/06/20 18:24 RDW 15.3 % (12.1-15.2) H 11/06/20 18:24 Plt Count 178 K/uL (152-406) D 11/06/20 18:24 MPV 9.4 fL (7.6-11.3) 11/06/20 18:24 Neutrophils % 81.8 % (41.7-73.7) H 11/06/20 18:24 Lymphocytes % 9.1 % (15.3-44.8) L 11/06/20 18:24 Monocytes % 8.7 % (3.3-12.3) 11/06/20 18:24 Eosinophils % 0.1 % (0-4.4) 11/06/20 18:24 Basophils % 0.3 % (0-1.3) 11/06/20 18:24 Absolute Neutrophils 10.0 K/uL (1.8-8.0) H 11/06/20 18:24 Absolute Lymphocytes 1.1 K/uL (0.7-4.9) 11/06/20 18:24 Absolute Monocytes 1.1 K/uL (0.1-1.3) 11/06/20 18:24 Absolute Eosinophils 0.0 K/uL (0-0.5) 11/06/20 18:24 Absolute Basophils 0.0 K/uL (0-0.5) 11/06/20 18:24 PT 12.5 SECONDS (9.5-12.5) 11/06/20 18:24 INR 1.09 11/06/20 18:24 APTT 28.2 SECONDS (24.3-36.9) 11/06/20 18:24 pH 7.36 (7.35-7.45) 11/06/20 18:39 pCO2 34.6 mmHG (35-45) L 11/06/20 18:39 pO2 59.1 mmHG (75-100) L 11/06/20 18:39 HCO3 19.1 mmol/L (22-28) L 11/06/20 18:39 Base Excess -5.3 mmol/L 11/06/20 18:39 Oxyhemoglobin 83.5 % (94-97) L 11/06/20 18:39 ABG O2 Sat (Measured) 86.3 % (92-98.5) L 11/06/20 18:39 ABG Carboxyhemoglobin 2.0 % (0-1.5) H 11/06/20 18:39 ABG Methemoglobin 1.2 % (0-1.5) 11/06/20 18:39 Other Total Hgb 7.2 g/dl (12-18) L 11/06/20 18:39 Inspired O2 40.0 % 11/06/20 18:39 Sodium 139 mmol/L (136-145) 11/06/20 18:24 Potassium 5.4 mmol/L (3.5-5.1) H 11/06/20 18:24 Chloride 108 mmol/L (98-107) H 11/06/20 18:24 Carbon Dioxide 20 mmol/L (21-32) L 11/06/20 18:24 BUN 67 mg/dL (7-18) H D 11/06/20 18:24 Creatinine 3.18 mg/dL (0.55-1.3) H D 11/06/20 18:24 Estimated GFR 20 mL/min (=/>90) L 11/06/20 18:24 Glucose 179 mg/dL (74-106) H 11/06/20 18:24 Lactic Acid 2.0 mmol/L (0.4-2.0) 11/06/20 19:46 Calcium 8.9 mg/dL (8.5-10.1) 11/06/20 18:24 Magnesium 2.4 mg/dL (1.8-2.4) 11/06/20 18:24 Total Bilirubin 0.6 mg/dL (0.2-1.0) 11/06/20 18:24 Direct Bilirubin 0.3 mg/dL (0-0.2) H 11/06/20 18:24 AST 140 U/L (15-37) H D 11/06/20 18:24 ALT 70 U/L (12-78) 11/06/20 18:24 Alkaline Phosphatase 172 U/L (45-117) H 11/06/20 18:24 Troponin I 1.13 ng/mL (0.0-0.045) H* 11/06/20 18:24 NT-Pro-B Natriuret Pep 39554 pg/mL (<125) H 11/06/20 18:24 Serum Total Protein 7.3 g/dL (6.4-8.2) 11/06/20 18:24 Albumin 2.5 g/dL (3.4-5.0) L 11/06/20 18:24 Globulin 4.8 g/dL (2.3-3.5) H 11/06/20 18:24 Albumin/Globulin Ratio 0.5 (1.1-1.8) L 11/06/20 18:24 Lipase 89 U/L (73-393) 11/06/20 18:24 Procalcitonin 0.25 ng/mL (<0.050) H 11/06/20 19:46 Vancomycin Trough 11.3 ug/mL (5.0-20.0) 11/06/20 18:24 Influenza Type A RNA Negative (NEGATIVE) 11/06/20 18:24 Influenza Type B RNA Negative (NEGATIVE) 11/06/20 18:24 SARS-CoV-2 RNA (RT-PCR) Negative (NEGATIVE) 11/06/20 18:24 ABO/Rh B POSITIVE 11/06/20 19:46 Solid Phase Ab Screen Negative 11/06/20 19:46 Crossmatch See Detail 11/06/20 19:46 Assessment And Plan - Plan General: Cachectic, Confused HEENT: Atraumatic, Normocephalic Neck: Supple, 2+ carotid pulse no bruit Respiratory: Clear to auscultation bilaterally Cardiovascular: No edema, Normal S1 S2 Capillary refill: <2 Seconds Gastrointestinal: Normal bowel sounds, Hypoactive Integumentary: Other (Extensive bruising to left neck and chest area. left collerbone fracture with swelling. Ulcer to left BKA stump.) Antibiotics: current zyvox: start: 11/12 stop: 12/12 Levaquin start: 11/09 stop: 12/12 DC: daptomycin start: 11/08 stop: 11/12 Assessment: -osteomyelitis of left BKA stump -bilateral multifocal pneumonia vs pulmonary edema -leukocytosis -diabetes type 2 -CKD stage 4 -chronic tobacco user -anemia Plan: -MRI from previous visit confirmed osteomyelitis left BKA stump. Patient on the antibiotic course of 6 weeks. Patient switched from vancomycin to daptomycin due to worsening kidney function. Patient had code blue on 11/12: Daptomycin switch to zyvox due to possible lung damage. Ordered daily CBCs to monitor patient's platelet count, if it continues to drop switch patient to vancomycin and continue to monitor renal function. Dropped and platelet count noted on 11/18: Continue to monitor closely. -chest x-ray and chest CT shows bilateral pulmonary opacities, pneumonia versus pulmonary edema. Continue current antibiotic treatments. Pulmonology following, sputum studies revealed normal respiratory simi. -leukocytosis: Resolved WBC now within normal range. Previous Increase in white blood cell count could be due to trauma patient experienced outpatient resulting in left collarbone fx and extensive bruising to the neck and upper extremity. -iron deficiency anemia: Maintain hemoglobin of at least 7.0 recommend transfusion hemoglobin drops below 7.0. Hemoglobin up trending, 10.3 on 11/15. -renally dose antibiotics due to CKD. Renal function shows improvement. -medical management per primary team -continue monitor CBC and BMP -continue to monitor for signs of infection Plan of care discussed with Dr. Payton Thank you for consultation
[2020-11-18] MEDS: D5 0.45 NS 1,000 ML IV SCH (13:09)
--- NOTE | 2020-11-18 17:59 | P.PN ---
Subjective Date of Service: 11/18/20 Chief Complaint: Resp failure Patient requesting for food and water. He aspirated on water and these medications prior to intubation He seen by speech recommended pureed diet and honey thickened liquids. NG tube is removed. He is afebrile. He denies any shortness of breath. He has been tolerating room air. Physical Examination - Vital Signs Temperature: 98.7 F Blood Pressure: 163/81 Pulse: 75 Respirations: 20 Pulse Ox (%): 92 - Physical Exam General: Alert, In no apparent distress HEENT: Mucous membr. moist/pink Neck: JVD not distended Respiratory: Normal air movement, Other (Mild scattered crackles) Cardiovascular: No edema, Regular rate/rhythm, Normal S1 S2 Gastrointestinal: Normal bowel sounds, Soft and benign, Non-distended, No tenderness Musculoskeletal: No swelling, Other (Left BKA) Integumentary: Other (Left BKA stump wound is clean and healing.) Neurological: Other (No focal motor deficit.) Assessment And Plan - Current Problems (Diagnosis) (1) Pneumonia Current Visit: Yes Status: Acute (2) Pulmonary edema Current Visit: Yes Status: Acute (3) Anemia Current Visit: No Status: Acute Qualifiers: Anemia type: iron deficiency Iron deficiency anemia type: unspecified iron deficiency Qualified Code(s): D50.9 - Iron deficiency anemia, unspecified (4) Elevated troponin Current Visit: No Status: Acute (5) Acute worsening of stage 4 chronic kidney disease Current Visit: Yes Status: Acute (6) Osteomyelitis of tibia Current Visit: No Status: Acute (7) Pressure ulcer of BKA stump, stage 2 Current Visit: No Status: Resolved (8) Hypernatremia Current Visit: Yes Status: Acute Physician Review Additional Text: Problem list Acute hypoxemic respiratory failure secondary to Pneumonia and pulmonary edema CALDERON on CKD 4 L clavicular fracture Left BKA stump ulcer, with acute osteomyelitis Diabetes mellitus, [id number] HTN Chronic tobacco use Acute on Chronic anemia, iron deficiency and heme+ stool Hep C Respiratory status improved significantly with diuresis and steroids. Patient is tolerating room air. Continue with his zyvox and Levaquin (ID recommended zyvox over vanc) lasix dc'd on 11/14 Swallow evaluation done. Speech therapy recommend pureed diet and honey thickened liquids. Seen by cardiology. Elevated troponin deemed secondary to CALDERON/CKD, hypoxia and anemia. Patient also has early or mild findings of liver cirrhosis with elevated liver enzymes. - discussed with family, report they were just told a few days ago that patient was positive for Hep C - tested in [place], they are unsure of results other than "positive". elevated LFTs possibly due to congestion. 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 chronic iron deficiency anemia, s/p [address] Goldstein consulted - EGD done showing mild atrophic gastritis. Continue protonix. Hemoglobin has been stable. multiple ecchymosis and L clavicle highly suspicious for recent trauma, however family and patient deny any fall/trauma. unclear of the acuity of his fractured L clavicle. Ortho consulted - recommend no surgical treatment, continue medical management, sling ordered Continue PT. Speech therapy to reassess swallow and advanced diet as possible. Hypernatremia likely secondary to reduced oral intake. Start IV D5 half-normal saline. Monitor BMP. Dispo: Patient may be appropriate for LTAC.
[2020-11-18] MEDS ORDERED: D50W 25 GM/50 ML VIAL IV PRN (19:00)
--- NOTE | 2020-11-18 20:23 | P.PN ---
Date of Service: 11/18/20 Vital Signs Temp Pulse Resp BP Pulse Ox 98.7 F 75 20 163/81 H 92 11/18/20 17:59 11/18/20 17:59 11/18/20 17:59 11/18/20 17:59 11/18/20 17:59 Medications Albuterol Sulfate (Albuterol 2.5 Mg/3 Ml Neb Lorena) 2.5 mg NEB [id number] PRN PRN Reason: SHORTNESS OF BREATH Amlodipine Besylate (Amlodipine 5 Mg Tab) 10 mg PO DAILY [facility] Last Admin: 11/18/20 08:35 Dose: 10 mg Documented by: Benzonatate (Benzonatate 100 Mg Cap) 100 mg PO TID PRN PRN Reason: COUGH Last Admin: 11/09/20 22:07 Dose: 100 mg Documented by: Calcitriol (Calcitrol 0.25 Mcg Cap) 0.5 mcg PO DAILY [facility] Last Admin: 11/18/20 08:34 Dose: 0.5 mcg Documented by: Cholecalciferol (Vitamin D 5,000 Unit Cap) 5,000 unit PO DAILY [facility] Last Admin: 11/18/20 08:34 Dose: 5,000 unit Documented by: Collagenase (Collagenase 30 Gm Ointment) 0 appl TOP DAILY [facility] Last Admin: 11/18/20 08:33 Dose: 1 ea Documented by: Dextrose (D50w 25 Gm/50 Ml Vial) 12.5 gm IV PRN PRN; Protocol PRN Reason: HYPOGLYCEMIA Famotidine (Famotidine 20 Mg/2 Ml Vial) 20 mg IV DAILY [facility]; Protocol Last Admin: 11/18/20 08:33 Dose: 20 mg Documented by: Glucagon (Glucagon 1 Mg/Vial) 1 mg IM 1X PRN; Protocol PRN Reason: HYPOGLYCEMIA Heparin Sodium (Porcine) (Heparin 5000 Unit/Ml 1 Ml Vial) 5,000 unit SQ Q12HR [facility] Last Admin: 11/18/20 08:35 Dose: Not Given Documented by: Hydralazine HCl (Hydralazine Hcl 20 Mg/Ml Vial) 5 mg IV Q6HP PRN PRN Reason: FOR SBP>160 OR DBP>100 MMHG Last Admin: 11/17/20 00:30 Dose: 5 mg Documented by: Hydralazine HCl (Hydralazine Hcl 25 Mg Tablet) 50 mg PO TID [facility] Last Admin: 11/18/20 15:15 Dose: 50 mg Documented by: Linezolid (Zyvox 600 Mg/300 Ml Ivpb (Premix)) 600 mg in 300 mls @ 300 mls/hr IV Q12HR [facility]; Protocol Last Admin: 11/18/20 08:32 Dose: 300 mls Documented by: Levofloxacin/Dextrose (Levaquin 250mg/50 Ml Ivpb) 250 mg in 50 mls @ 50 mls/hr IV Q48H [facility]; Protocol Last Admin: 11/17/20 08:49 Dose: 50 mls Documented by: Dextrose/Sodium Chloride (Dextrose 5% O.45% Saline) 1,000 mls @ 50 mls/hr IV .Q20H [facility] Last Admin: 11/18/20 13:09 Dose: 1,000 mls Documented by: Insulin Human Regular (Insulin -Regular Human 50 Unit/0.5 Ml Ml) 0 unit SQ ACHS [facility]; Protocol Last Admin: 11/18/20 17:07 Dose: 3 unit Documented by: Lactobacillus Acidoph/Bulgaricus (Lactobacillus/Acidophilus Tab) 1 tab PO TID [facility] Last Admin: 11/18/20 15:15 Dose: 1 tab Documented by: Melatonin (Melatonin 5 Mg Tablet) 10 mg PO BEDTIME PRN PRN PRN Reason: insommnia Last Admin: 11/15/20 22:22 Dose: 10 mg Documented by: Methylprednisolone Sodium Succinate (Methylprednisolone 40 Mg Inj) 40 mg IV BID [facility] Last Admin: 11/18/20 08:36 Dose: 40 mg Documented by: Metoprolol Tartrate (Metoprolol Tar 25 Mg Tab) 25 mg PO BID 6AM 6PM [facility] Last Admin: 11/18/20 17:07 Dose: 25 mg Documented by: Nutritional Formula (Ensure Enlive 237 Ml Can) 237 ml PO BID [facility] Last Admin: 11/18/20 08:35 Dose: Not Given Documented by: Ondansetron HCl (Ondansetron 4 Mg/2 Ml Vial) 4 mg IV Q6HP PRN PRN Reason: NAUSEA / VOMITING Last Admin: 11/17/20 22:44 Dose: 4 mg Documented by: Sodium Chloride (Flush Normal Saline 10 Ml) 10 ml IV BID [facility] Last Admin: 11/18/20 08:36 Dose: 10 ml Documented by: Sodium Chloride (Sodium Chloride 0.9% 10ml Inj) 10 ml IV UD PRN PRN Reason: Diluant Last Admin: 11/14/20 20:25 Dose: 10 ml Documented by: Tramadol HCl (Tramadol Hcl 50 Mg Tab) 50 mg PO Q6H PRN PRN Reason: Pain scale 5-7 (Moderate) Last Admin: 11/17/20 08:47 Dose: 50 mg Documented by: Microbiology Results 11/06/20 19:37 Blood - Blood Aerobic Blood Culture - Final No growth in 5 days. 11/06/20 19:37 Blood - Blood Anaerobic Blood Culture - Final No growth in 5 days. 11/06/20 19:46 Blood - Blood Aerobic Blood Culture - Final No growth in 5 days. 11/06/20 19:46 Blood - Blood Anaerobic Blood Culture - Final No growth in 5 days. Assessment/ Plan: Nephrology/ ICU CPS stable without CP or SOB No acute events overnight Case reviewed with the family at the bedside. Vitals, medications, blood work and imaging reviewed in the chart. NAD. MMM. Neck supple. BL Rales. RRR. Soft Abd. No C/C/E. No rash. AAO. Normal Speech. Left BKA. A/P: Continue the current POC and Medications other than the changes listed. AM Labs PRN. Recommend daily weight. Please see the orders for complete details. CALDERON likely due hypovolemia CKD IV -No NSAIDs Hypernatremia -Encourage hydration Hyperkalemia/ Hypokalemia -Replete potassium prn Acidosis Hypocalcemia -Continue Vitamin D HTN with tachycardia -Continue Metoprolol 25mg BID -Continue Amlodipine Moderate malnutrition -Encourage nutrition Anemia in chronic illness Iron deficiency -PRBC transfusion PRN Osteomyelitis of tibia -Continue abx BL PNA with ARDS vs CHF Acute hypoxic resp failure -Continue Levaquin
[2020-11-19] MEDS: METOPROLOL TAR 25 MG TAB PO SCH ×2 (05:26→18:00)
[2020-11-19 05:42] LABS: Absolute Lymphocytes (CBC) 0.6 K/uL (0.7-4.9); Basophils % 0.3 % (0-1.3); Hematocrit 33.7 % (39.6-49.0); Lymphocytes % 5.6 % (15.3-44.8); RBC Red Blood Cell Count 3.95 M/uL (4.33-5.43)
[2020-11-19 05:51] LABS: Magnesium 2.2 mg/dL (1.8-2.4); Phosphorus 3.3 mg/dL (2.5-4.9)
[2020-11-19] MEDS ORDERED: ALBUTEROL 2.5 MG/3 ML NEB SOL NEB PRN (07:07)
[2020-11-19] MEDS: LINEZOLID 600 MG IVPB 600 MG/300 ML BAG IV SCH (08:28)
[2020-11-19] MEDS: Levofloxacin 250mg IV 250 MG/50 ML BAG IV SCH (08:28)
[2020-11-19] MEDS: LACTOBACILLUS/ACIDOPHILUS TAB PO SCH ×3 (08:29→21:15)
[2020-11-19] MEDS: METHYLPREDNISOLONE 40 MG INJ IV SCH ×2 (08:29→21:16)
[2020-11-19] MEDS: VITAMIN D 5,000 UNIT CAP PO SCH (08:29)
[2020-11-19] MEDS: FAMOTIDINE 20 MG/2 ML VIAL IV SCH (08:29)
[2020-11-19] MEDS: HEPARIN 5000 UNIT/ML 1 ML VIAL SQ SCH ×2 (08:29→21:15)
[2020-11-19] MEDS: AMLODIPINE 5 MG TAB PO SCH (08:29)
[2020-11-19] MEDS: ENSURE ENLIVE 237 ML CAN PO SCH ×2 (08:30→20:24)
[2020-11-19] MEDS: HYDRALAZINE HCL 25 MG TABLET PO SCH ×3 (08:30→21:15)
[2020-11-19] MEDS: D5 0.45 NS 1,000 ML IV SCH ×2 (08:30→20:39)
[2020-11-19] MEDS: CALCITROL 0.25 MCG CAP PO SCH (08:30)
[2020-11-19] MEDS: COLLAGENASE 30 GM OINTMENT TOP SCH (08:31)
[2020-11-19] MEDS: INSULIN -REGULAR HUMAN 50 UNIT/0.5 ML ML SQ SCH ×4 (08:39→21:00)
--- NOTE | 2020-11-19 09:41 | P.PN ---
Subjective Date of Service: 11/19/20 Chief Complaint: Resp failure Patient seen and examined-weaned off oxygen. Tolerating room air. thrombocytopenia increased today with a platelet count of 92. Zyvox has been Dc patient has been restarted on vancomycin. Continue to monitor renal function. Review of Systems 10-point ROS is otherwise unremarkable Physical Examination - Vital Signs Temperature: 97.9 F Blood Pressure: 168/89 Pulse: 75 Respirations: 16 Pulse Ox (%): 97 - Studies Temp Pulse Resp BP Pulse Ox 97.9 F 75 16 168/89 H 97 11/19/20 08:00 11/19/20 08:29 11/19/20 08:00 11/19/20 08:29 11/19/20 08:00 Laboratory Last Values WBC 12.30 K/uL (4.3-10.9) H D 11/06/20 18:24 RBC 2.59 M/uL (4.33-5.43) L 11/06/20 18:24 Hgb 7.1 g/dL (13.6-17.9) L* 11/06/20 18:24 Hct 22.0 % (39.6-49.0) L 11/06/20 18:24 MCV 85.2 fL (80-100) D 11/06/20 18:24 MCH 27.4 pg (27.0-35.0) 11/06/20 18:24 MCHC 32.1 g/dL (32.0-36.0) 11/06/20 18:24 RDW 15.3 % (12.1-15.2) H 11/06/20 18:24 Plt Count 178 K/uL (152-406) D 11/06/20 18:24 MPV 9.4 fL (7.6-11.3) 11/06/20 18:24 Neutrophils % 81.8 % (41.7-73.7) H 11/06/20 18:24 Lymphocytes % 9.1 % (15.3-44.8) L 11/06/20 18:24 Monocytes % 8.7 % (3.3-12.3) 11/06/20 18:24 Eosinophils % 0.1 % (0-4.4) 11/06/20 18:24 Basophils % 0.3 % (0-1.3) 11/06/20 18:24 Absolute Neutrophils 10.0 K/uL (1.8-8.0) H 11/06/20 18:24 Absolute Lymphocytes 1.1 K/uL (0.7-4.9) 11/06/20 18:24 Absolute Monocytes 1.1 K/uL (0.1-1.3) 11/06/20 18:24 Absolute Eosinophils 0.0 K/uL (0-0.5) 11/06/20 18:24 Absolute Basophils 0.0 K/uL (0-0.5) 11/06/20 18:24 PT 12.5 SECONDS (9.5-12.5) 11/06/20 18:24 INR 1.09 11/06/20 18:24 APTT 28.2 SECONDS (24.3-36.9) 11/06/20 18:24 pH 7.36 (7.35-7.45) 11/06/20 18:39 pCO2 34.6 mmHG (35-45) L 11/06/20 18:39 pO2 59.1 mmHG (75-100) L 11/06/20 18:39 HCO3 19.1 mmol/L (22-28) L 11/06/20 18:39 Base Excess -5.3 mmol/L 11/06/20 18:39 Oxyhemoglobin 83.5 % (94-97) L 11/06/20 18:39 ABG O2 Sat (Measured) 86.3 % (92-98.5) L 11/06/20 18:39 ABG Carboxyhemoglobin 2.0 % (0-1.5) H 11/06/20 18:39 ABG Methemoglobin 1.2 % (0-1.5) 11/06/20 18:39 Other Total Hgb 7.2 g/dl (12-18) L 11/06/20 18:39 Inspired O2 40.0 % 11/06/20 18:39 Sodium 139 mmol/L (136-145) 11/06/20 18:24 Potassium 5.4 mmol/L (3.5-5.1) H 11/06/20 18:24 Chloride 108 mmol/L (98-107) H 11/06/20 18:24 Carbon Dioxide 20 mmol/L (21-32) L 11/06/20 18:24 BUN 67 mg/dL (7-18) H D 11/06/20 18:24 Creatinine 3.18 mg/dL (0.55-1.3) H D 11/06/20 18:24 Estimated GFR 20 mL/min (=/>90) L 11/06/20 18:24 Glucose 179 mg/dL (74-106) H 11/06/20 18:24 Lactic Acid 2.0 mmol/L (0.4-2.0) 11/06/20 19:46 Calcium 8.9 mg/dL (8.5-10.1) 11/06/20 18:24 Magnesium 2.4 mg/dL (1.8-2.4) 11/06/20 18:24 Total Bilirubin 0.6 mg/dL (0.2-1.0) 11/06/20 18:24 Direct Bilirubin 0.3 mg/dL (0-0.2) H 11/06/20 18:24 AST 140 U/L (15-37) H D 11/06/20 18:24 ALT 70 U/L (12-78) 11/06/20 18:24 Alkaline Phosphatase 172 U/L (45-117) H 11/06/20 18:24 Troponin I 1.13 ng/mL (0.0-0.045) H* 11/06/20 18:24 NT-Pro-B Natriuret Pep 96425 pg/mL (<125) H 11/06/20 18:24 Serum Total Protein 7.3 g/dL (6.4-8.2) 11/06/20 18:24 Albumin 2.5 g/dL (3.4-5.0) L 11/06/20 18:24 Globulin 4.8 g/dL (2.3-3.5) H 11/06/20 18:24 Albumin/Globulin Ratio 0.5 (1.1-1.8) L 11/06/20 18:24 Lipase 89 U/L (73-393) 11/06/20 18:24 Procalcitonin 0.25 ng/mL (<0.050) H 11/06/20 19:46 Vancomycin Trough 11.3 ug/mL (5.0-20.0) 11/06/20 18:24 Influenza Type A RNA Negative (NEGATIVE) 11/06/20 18:24 Influenza Type B RNA Negative (NEGATIVE) 11/06/20 18:24 SARS-CoV-2 RNA (RT-PCR) Negative (NEGATIVE) 11/06/20 18:24 ABO/Rh B POSITIVE 11/06/20 19:46 Solid Phase Ab Screen Negative 11/06/20 19:46 Crossmatch See Detail 11/06/20 19:46 Assessment And Plan - Plan General: Cachectic, Confused HEENT: Atraumatic, Normocephalic Neck: Supple, 2+ carotid pulse no bruit Respiratory: Clear to auscultation bilaterally Cardiovascular: No edema, Normal S1 S2 Capillary refill: <2 Seconds Gastrointestinal: Normal bowel sounds, Hypoactive Integumentary: Other (Extensive bruising to left neck and chest area. left collerbone fracture with swelling. Ulcer to left BKA stump.) Antibiotics: current Vancomycin tart: 11/19 stop: 12/12 Levaquin start: 11/09 stop: 12/12 DC: daptomycin start: 11/08 stop: 11/12 zyvox start: 11/12 stop: 11/19 Assessment: -osteomyelitis of left BKA stump -bilateral multifocal pneumonia vs pulmonary edema -leukocytosis -diabetes type 2 -CKD stage 4 -chronic tobacco user -anemia Plan: -MRI from previous visit confirmed osteomyelitis left BKA stump. Patient on the antibiotic course of 6 weeks. Patient switched from vancomycin to daptomycin due to worsening kidney function. Patient had code blue on 11/12: Daptomycin switch to zyvox due to possible lung damage. Patient restarted on vancomycin on 11/19 with Zosyn discontinued due to thrombocytopenia. Weekly labs: CBC, CRP, BMP, vanc trough. Vanc trough goal of 15-20 -chest x-ray and chest CT shows bilateral pulmonary opacities, pneumonia versus pulmonary edema. Continue current antibiotic treatments. Pulmonology following, sputum studies revealed normal respiratory simi. Patient weaned off oxygen tolerating room air. -leukocytosis: Resolved WBC now within normal range. Previous Increase in white blood cell count could be due to trauma patient experienced outpatient resulting in left collarbone fx and extensive bruising to the neck and upper extremity. -iron deficiency anemia: Maintain hemoglobin of at least 7.0 recommend transfusion hemoglobin drops below 7.0. Hemoglobin up trending, 10.3 on 11/15. -renally dose antibiotics due to CKD. Renal function shows improvement. -social work consultation ordered for transfer to [email or web address]. -medical management per primary team -continue monitor CBC and BMP -continue to monitor for signs of infection Plan of care discussed with Dr. Payton Thank you for consultation
--- NOTE | 2020-11-19 10:38 | P.PN ---
Subjective Date of Service: 11/19/20 Chief Complaint: Resp failure Patient continue to requesting for food and water. He seen by speech recommended pureed diet and honey thickened liquids. NG tube is removed. He is afebrile. He denies any shortness of breath. He has been tolerating room air. He is doing well. Physical Examination - Vital Signs Temperature: 97.9 F Blood Pressure: 168/89 Pulse: 75 Respirations: 16 Pulse Ox (%): 97 - Physical Exam General: Alert, In no apparent distress HEENT: Mucous membr. moist/pink Neck: JVD not distended Respiratory: Clear to auscultation bilaterally, Normal air movement Cardiovascular: No edema, Regular rate/rhythm, Normal S1 S2 Gastrointestinal: Normal bowel sounds, Soft and benign, Non-distended Musculoskeletal: Other (Left BKA) Neurological: Normal strength at 5/5 x4 extr, Cranial nerves 3-12 intact Assessment And Plan - Current Problems (Diagnosis) (1) Pneumonia Current Visit: Yes Status: Acute (2) Pulmonary edema Current Visit: Yes Status: Acute (3) Anemia Current Visit: No Status: Acute Qualifiers: Anemia type: iron deficiency Iron deficiency anemia type: unspecified iron deficiency Qualified Code(s): D50.9 - Iron deficiency anemia, unspecified (4) Elevated troponin Current Visit: No Status: Acute (5) Acute worsening of stage 4 chronic kidney disease Current Visit: Yes Status: Acute (6) Osteomyelitis of tibia Current Visit: No Status: Acute (7) Pressure ulcer of BKA stump, stage 2 Current Visit: No Status: Resolved (8) Hypernatremia Current Visit: Yes Status: Acute Physician Review Additional Text: Problem list Acute hypoxemic respiratory failure secondary to Pneumonia and pulmonary edema CALDERON on CKD 4 L clavicular fracture Left BKA stump ulcer, with acute osteomyelitis Diabetes mellitus, [id number] HTN Chronic tobacco use Acute on Chronic anemia, iron deficiency and heme+ stool Hep C Respiratory status improved significantly with diuresis and steroids. Patient is tolerating room air. Continue with his zyvox and Levaquin (ID recommended zyvox over vanc) lasix dc'd on 11/14 Swallow evaluation done. Speech therapy recommend pureed diet and honey thickened liquids but patient is not eating much or drinking much due to the consistency of the food and water. Speech therapy to reassess today and advance diet as possible. Elevated troponin deemed secondary to CALDERON/CKD, hypoxia and anemia. 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 chronic iron deficiency anemia, s/p [address] Goldstein consulted - EGD done showing mild atrophic gastritis. Continue protonix. Hemoglobin has been stable. multiple ecchymosis and L clavicle highly suspicious for recent trauma, however family and patient deny any fall/trauma. unclear of the acuity of his fractured L clavicle. Ortho consulted - recommended no surgical treatment, continue medical management. sling ordered Continue PT. Hypernatremia likely secondary to reduced oral intake. Stable Continue IV D5 half-normal saline until oral intake improve. Monitor BMP. Dispo: Patient may be appropriate for LTAC.
[2020-11-19] MEDS: VANCOMYCIN 1.25 GM in NA CHLORIDE 0.9% 250 ML IVPB SCH (11:00)
--- NOTE | 2020-11-19 16:12 | RAD REPORT ---
EXAM DESCRIPTION: RAD - Barium Swallow Modified - 11/19/2020 4:06 pm CLINICAL HISTORY: dysphagia COMPARISON: No comparisons TECHNIQUE: The patient was given liquid, semi-solid and solid forms of barium. Lateral view fluorosc opic imaging was performed in conjunction with speech pathology service. FINDINGS: Laryngeal penetration - cleared with nectar. Not Cleared with thin by cup w/o chin tuck, P uree residue which spilled over into airway on subsequent swallow. Pharyngeal residue vallecular - mild with thin, nectar, honey, puree, reduced to min on subsequent sw allow. Pyriform- trace with thin nectar, honey, mild with puree. 1 second swallow delay, decreased phanyngeal contraction. Total fluoroscopy time: 5 minutes 17 seconds
--- NOTE | 2020-11-19 21:20 | P.PN ---
Date of Service: 11/19/20 Vital Signs Temp Pulse Resp BP Pulse Ox 98.1 F 83 16 156/76 H 93 11/19/20 20:00 11/19/20 20:00 11/19/20 20:00 11/19/20 20:00 11/19/20 20:00 Medications Albuterol Sulfate (Albuterol 2.5 Mg/3 Ml Neb Lorena) 2.5 mg NEB Q6HP PRN PRN Reason: SHORTNESS OF BREATH Amlodipine Besylate (Amlodipine 5 Mg Tab) 10 mg PO DAILY [facility] Last Admin: 11/19/20 08:29 Dose: 10 mg Documented by: Benzonatate (Benzonatate 100 Mg Cap) 100 mg PO TID PRN PRN Reason: COUGH Last Admin: 11/09/20 22:07 Dose: 100 mg Documented by: Calcitriol (Calcitrol 0.25 Mcg Cap) 0.5 mcg PO DAILY [facility] Last Admin: 11/19/20 08:30 Dose: 0.5 mcg Documented by: Cholecalciferol (Vitamin D 5,000 Unit Cap) 5,000 unit PO DAILY [facility] Last Admin: 11/19/20 08:29 Dose: 5,000 unit Documented by: Collagenase (Collagenase 30 Gm Ointment) 0 appl TOP DAILY [facility] Last Admin: 11/19/20 08:31 Dose: 1 ea Documented by: Dextrose (D50w 25 Gm/50 Ml Vial) 12.5 gm IV PRN PRN; Protocol PRN Reason: HYPOGLYCEMIA Famotidine (Famotidine 20 Mg/2 Ml Vial) 20 mg IV DAILY [facility]; Protocol Last Admin: 11/19/20 08:29 Dose: 20 mg Documented by: Glucagon (Glucagon 1 Mg/Vial) 1 mg IM 1X PRN; Protocol PRN Reason: HYPOGLYCEMIA Heparin Sodium (Porcine) (Heparin 5000 Unit/Ml 1 Ml Vial) 5,000 unit SQ Q12HR [facility] Last Admin: 11/19/20 08:29 Dose: 5,000 unit Documented by: Hydralazine HCl (Hydralazine Hcl 20 Mg/Ml Vial) 5 mg IV Q6HP PRN PRN Reason: FOR SBP>160 OR DBP>100 [facility] Last Admin: 11/17/20 00:30 Dose: 5 mg Documented by: Hydralazine HCl (Hydralazine Hcl 25 Mg Tablet) 50 mg PO TID [facility] Last Admin: 11/19/20 16:15 Dose: 50 mg Documented by: Levofloxacin/Dextrose (Levaquin 250mg/50 Ml Ivpb) 250 mg in 50 mls @ 50 mls/hr IV Q48H [facility]; Protocol Last Admin: 11/19/20 08:28 Dose: 50 mls Documented by: Dextrose/Sodium Chloride (Dextrose 5% O.45% Saline) 1,000 mls @ 50 mls/hr IV .Q20H [facility] Last Admin: 11/19/20 20:39 Dose: 1,000 mls Documented by: Vancomycin HCl 1.25 gm/ Sodium (Chloride) 250 mls @ 150 mls/hr IVPB Q36H [facility]; Protocol Last Admin: 11/19/20 11:00 Dose: 250 mls Documented by: Insulin Human Regular (Insulin -Regular Human 50 Unit/0.5 Ml Ml) 0 unit SQ ACHS [facility]; Protocol Last Admin: 11/19/20 16:30 Dose: Not Given Documented by: Lactobacillus Acidoph/Bulgaricus (Lactobacillus/Acidophilus Tab) 1 tab PO TID [facility] Last Admin: 11/19/20 16:15 Dose: 1 tab Documented by: Melatonin (Melatonin 5 Mg Tablet) 10 mg PO BEDTIME PRN PRN PRN Reason: insommnia Last Admin: 11/15/20 22:22 Dose: 10 mg Documented by: Methylprednisolone Sodium Succinate (Methylprednisolone 40 Mg Inj) 40 mg IV BID [facility] Last Admin: 11/19/20 08:29 Dose: 40 mg Documented by: Metoprolol Tartrate (Metoprolol Tar 25 Mg Tab) 25 mg PO BID 6AM 6PM [facility] Last Admin: 11/19/20 18:00 Dose: 25 mg Documented by: Nutritional Formula (Ensure Enlive 237 Ml Can) 237 ml PO BID [facility] Last Admin: 11/19/20 20:24 Dose: Not Given Documented by: Ondansetron HCl (Ondansetron 4 Mg/2 Ml Vial) 4 mg IV Q6HP PRN PRN Reason: NAUSEA / VOMITING Last Admin: 11/17/20 22:44 Dose: 4 mg Documented by: Sodium Chloride (Flush Normal Saline 10 Ml) 10 ml IV BID [facility] Last Admin: 11/19/20 20:25 Dose: 10 ml Documented by: Sodium Chloride (Sodium Chloride 0.9% 10ml Inj) 10 ml IV UD PRN PRN Reason: Diluant Last Admin: 11/14/20 20:25 Dose: 10 ml Documented by: Tramadol HCl (Tramadol Hcl 50 Mg Tab) 50 mg PO Q6H PRN PRN Reason: Pain scale 5-7 (Moderate) Last Admin: 11/17/20 08:47 Dose: 50 mg Documented by: Microbiology Results 11/06/20 19:37 Blood - Blood Aerobic Blood Culture - Final No growth in 5 days. 11/06/20 19:37 Blood - Blood Anaerobic Blood Culture - Final No growth in 5 days. 11/06/20 19:46 Blood - Blood Aerobic Blood Culture - Final No growth in 5 days. 11/06/20 19:46 Blood - Blood Anaerobic Blood Culture - Final No growth in 5 days. Assessment/ Plan: Nephrology/ ICU CPS stable without CP or SOB No acute events overnight Still with swallowing difficulties. Case reviewed with the family at the bedside. Vitals, medications, blood work and imaging reviewed in the chart. NAD. MMM. Neck supple. BL Rales. RRR. Soft Abd. No C/C/E. No rash. AAO. Normal Speech. Left BKA. A/P: Continue the current POC and Medications other than the changes listed. AM Labs PRN. Recommend daily weight. Please see the orders for complete details. CALDERON likely due hypovolemia CKD IV -No NSAIDs Hypernatremia -Encourage hydration Hyperkalemia/ Hypokalemia -Replete potassium prn Acidosis Hypocalcemia -Continue Vitamin D HTN with tachycardia -Continue Metoprolol 25mg BID -Continue Amlodipine Moderate malnutrition -Encourage nutrition Anemia in chronic illness Iron deficiency -PRBC transfusion PRN Osteomyelitis of tibia -Continue abx BL PNA with ARDS vs CHF Acute hypoxic resp failure -Continue Levaquin & Vanco
[2020-11-20] MEDS: D5 0.45 NS 1,000 ML IV SCH ×2 (05:00→21:12)
[2020-11-20 05:10] LABS: Absolute Lymphocytes (CBC) 0.3 K/uL (0.7-4.9); Lymphocytes % 3.1 % (15.3-44.8); MPV 9.4 fL (7.6-11.3); RBC Red Blood Cell Count 3.87 M/uL (4.33-5.43)
[2020-11-20 05:22] LABS: Potassium 3.9 mmol/L (3.5-5.1)
[2020-11-20] MEDS: METOPROLOL TAR 25 MG TAB PO SCH ×2 (05:23→18:38)
[2020-11-20 06:27] LABS: Anisocytosis 1+; Blood Morphology Comment NOTED (NOT SEEN); Platelet Estimate DECR; White Blood Cell Scan OK (OK)
[2020-11-20] MEDS: INSULIN -REGULAR HUMAN 50 UNIT/0.5 ML ML SQ SCH ×4 (07:30→20:49)
[2020-11-20] MEDS: COLLAGENASE 30 GM OINTMENT TOP SCH (09:00)
[2020-11-20] MEDS: GLUCERNA SHAKE 237 ML CAN PO SCH ×2 (09:00→21:00)
[2020-11-20] MEDS: HEPARIN 5000 UNIT/ML 1 ML VIAL SQ SCH (09:00)
[2020-11-20] MEDS: ENSURE PUDDING 4 OZ CUP PO SCH ×2 (09:00→14:00)
[2020-11-20] MEDS: METHYLPREDNISOLONE 40 MG INJ IV SCH ×2 (09:11→20:49)
[2020-11-20] MEDS: VITAMIN D 5,000 UNIT CAP PO SCH (09:11)
[2020-11-20] MEDS: CALCITROL 0.25 MCG CAP PO SCH (09:12)
[2020-11-20] MEDS: HYDRALAZINE HCL 25 MG TABLET PO SCH ×3 (09:12→20:48)
[2020-11-20] MEDS: AMLODIPINE 5 MG TAB PO SCH (09:12)
[2020-11-20] MEDS: LACTOBACILLUS/ACIDOPHILUS TAB PO SCH ×3 (09:12→20:49)
[2020-11-20] MEDS: FAMOTIDINE 20 MG/2 ML VIAL IV SCH (09:12)
--- NOTE | 2020-11-20 10:43 | P.PN ---
Date of Service: 11/20/20 Vital Signs Temp Pulse Resp BP Pulse Ox 98.6 F 71 18 160/81 H 96 11/20/20 08:00 11/20/20 08:00 11/20/20 08:00 11/20/20 08:00 11/20/20 08:00 Medications Albuterol Sulfate (Albuterol 2.5 Mg/3 Ml Neb Lorena) 2.5 mg NEB Q6HP PRN PRN Reason: SHORTNESS OF BREATH Amlodipine Besylate (Amlodipine 5 Mg Tab) 10 mg PO DAILY [facility] Last Admin: 11/20/20 09:12 Dose: 10 mg Documented by: Benzonatate (Benzonatate 100 Mg Cap) 100 mg PO TID PRN PRN Reason: COUGH Last Admin: 11/09/20 22:07 Dose: 100 mg Documented by: Calcitriol (Calcitrol 0.25 Mcg Cap) 0.5 mcg PO DAILY [facility] Last Admin: 11/20/20 09:12 Dose: 0.5 mcg Documented by: Cholecalciferol (Vitamin D 5,000 Unit Cap) 5,000 unit PO DAILY [facility] Last Admin: 11/20/20 09:11 Dose: 5,000 unit Documented by: Collagenase (Collagenase 30 Gm Ointment) 0 appl TOP DAILY [facility] Last Admin: 11/20/20 09:00 Dose: 1 ea Documented by: Dextrose (D50w 25 Gm/50 Ml Vial) 12.5 gm IV PRN PRN; Protocol PRN Reason: HYPOGLYCEMIA Enteral Nutritional Formula (Ensure Pudding 4 Oz Cup) 4 oz PO BID* [facility] Last Admin: 11/20/20 09:00 Dose: 4 oz Documented by: Enteral Nutritional Formula (Glucerna Shake 237 Ml Can) 237 ml PO BID [facility] Last Admin: 11/20/20 09:00 Dose: 237 ml Documented by: Famotidine (Famotidine 20 Mg/2 Ml Vial) 20 mg IV DAILY [facility]; Protocol Last Admin: 11/20/20 09:12 Dose: 20 mg Documented by: Glucagon (Glucagon 1 Mg/Vial) 1 mg IM 1X PRN; Protocol PRN Reason: HYPOGLYCEMIA Heparin Sodium (Porcine) (Heparin 5000 Unit/Ml 1 Ml Vial) 5,000 unit SQ Q12HR [facility] Last Admin: 11/19/20 21:15 Dose: 5,000 unit Documented by: Hydralazine HCl (Hydralazine Hcl 20 Mg/Ml Vial) 5 mg IV Q6HP PRN PRN Reason: FOR SBP>160 OR DBP>100 MM[facility] Last Admin: 11/17/20 00:30 Dose: 5 mg Documented by: Hydralazine HCl (Hydralazine Hcl 25 Mg Tablet) 50 mg PO TID [facility] Last Admin: 11/20/20 09:12 Dose: 50 mg Documented by: Levofloxacin/Dextrose (Levaquin 250mg/50 Ml Ivpb) 250 mg in 50 mls @ 50 mls/hr IV Q48H [facility]; Protocol Last Admin: 11/19/20 08:28 Dose: 50 mls Documented by: Dextrose/Sodium Chloride (Dextrose 5% O.45% Saline) 1,000 mls @ 50 mls/hr IV .Q20H [facility] Last Admin: 11/20/20 05:00 Dose: Not Given Documented by: Vancomycin HCl 1.25 gm/ Sodium (Chloride) 250 mls @ 150 mls/hr IVPB Q36H [facility]; Protocol Last Admin: 11/19/20 11:00 Dose: 250 mls Documented by: Insulin Human Regular (Insulin -Regular Human 50 Unit/0.5 Ml Ml) 0 unit SQ ACHS [facility]; Protocol Last Admin: 11/20/20 07:30 Dose: 5 unit Documented by: Lactobacillus Acidoph/Bulgaricus (Lactobacillus/Acidophilus Tab) 1 tab PO TID [facility] Last Admin: 11/20/20 09:12 Dose: 1 tab Documented by: Melatonin (Melatonin 5 Mg Tablet) 10 mg PO BEDTIME PRN PRN PRN Reason: insommnia Last Admin: 11/15/20 22:22 Dose: 10 mg Documented by: Methylprednisolone Sodium Succinate (Methylprednisolone 40 Mg Inj) 40 mg IV BID [facility] Last Admin: 11/20/20 09:11 Dose: 40 mg Documented by: Metoprolol Tartrate (Metoprolol Tar 25 Mg Tab) 50 mg PO BID 6AM 6PM [facility] Ondansetron HCl (Ondansetron 4 Mg/2 Ml Vial) 4 mg IV Q6HP PRN PRN Reason: NAUSEA / VOMITING Last Admin: 11/17/20 22:44 Dose: 4 mg Documented by: Sodium Chloride (Flush Normal Saline 10 Ml) 10 ml IV BID [facility] Last Admin: 11/20/20 09:00 Dose: 10 ml Documented by: Sodium Chloride (Sodium Chloride 0.9% 10ml Inj) 10 ml IV UD PRN PRN Reason: Diluant Last Admin: 11/14/20 20:25 Dose: 10 ml Documented by: Tramadol HCl (Tramadol Hcl 50 Mg Tab) 50 mg PO Q6H PRN PRN Reason: Pain scale 5-7 (Moderate) Last Admin: 11/17/20 08:47 Dose: 50 mg Documented by: Microbiology Results 11/06/20 19:37 Blood - Blood Aerobic Blood Culture - Final No growth in 5 days. 11/06/20 19:37 Blood - Blood Anaerobic Blood Culture - Final No growth in 5 days. 11/06/20 19:46 Blood - Blood Aerobic Blood Culture - Final No growth in 5 days. 11/06/20 19:46 Blood - Blood Anaerobic Blood Culture - Final No growth in 5 days. Assessment/ Plan: Nephrology/ ICU CPS stable without CP or SOB No acute events overnight Still with swallowing difficulties but feeling better this morning. Case reviewed with the family at the bedside. Vitals, medications, blood work and imaging reviewed in the chart. NAD. MMM. Neck supple. BL Rales. RRR. Soft Abd. No C/C/E. No rash. AAO. Normal Speech. Left BKA. A/P: Continue the current POC and Medications other than the changes listed. AM Labs PRN. Recommend daily weight. Please see the orders for complete details. CALDERON likely due hypovolemia CKD III -No NSAIDs Hypernatremia -Encourage hydration Hyperkalemia/ Hypokalemia -Replete potassium prn Acidosis Hypocalcemia -Continue Vitamin D HTN with tachycardia -Continue Metoprolol 25mg BID -Continue Amlodipine -Increase Hydralazine 100 TID Moderate malnutrition -Encourage nutrition Anemia in chronic illness Iron deficiency -Start daily IV iron X4 doses -PRBC transfusion PRN Osteomyelitis of tibia -Continue abx BL PNA with ARDS vs CHF Acute hypoxic resp failure -Continue Levaquin & Vanco
[2020-11-20] MEDS: SOD FERRIC GLUC COMPLX/SUCROSE 125 MG in NA CHLORIDE 0.9% 250 ML IV SCH (12:00)
--- NOTE | 2020-11-20 13:00 | P.PN ---
Subjective Date of Service: 11/20/20 Chief Complaint: Resp failure Patient continue to requesting for food and water. He failed swallow study again yesterday. He does have significant oropharyngeal dysphagia NG tube is removed. He is afebrile. He denies any shortness of breath. He has been tolerating room air. Blood pressure elevated. Physical Examination - Vital Signs Temperature: 99.3 F Blood Pressure: 169/94 Pulse: 88 Respirations: 18 Pulse Ox (%): 99 - Physical Exam General: Alert, In no apparent distress HEENT: Mucous membr. moist/pink Neck: JVD not distended Respiratory: Clear to auscultation bilaterally, Normal air movement Cardiovascular: No edema, Regular rate/rhythm, Normal S1 S2 Gastrointestinal: Normal bowel sounds, Soft and benign, Non-distended, No tenderness Musculoskeletal: No swelling Integumentary: Other (Left amputation stump wound almost healed.) Neurological: Normal strength at 5/5 x4 extr Assessment And Plan - Current Problems (Diagnosis) (1) Pneumonia Current Visit: Yes Status: Acute (2) Pulmonary edema Current Visit: Yes Status: Acute (3) Anemia Current Visit: No Status: Acute Qualifiers: Anemia type: iron deficiency Iron deficiency anemia type: unspecified iron deficiency Qualified Code(s): D50.9 - Iron deficiency anemia, unspecified (4) Elevated troponin Current Visit: No Status: Acute (5) Acute worsening of stage 4 chronic kidney disease Current Visit: Yes Status: Acute (6) Osteomyelitis of tibia Current Visit: No Status: Acute (7) Pressure ulcer of BKA stump, stage 2 Current Visit: No Status: Resolved (8) Hypernatremia Current Visit: Yes Status: Acute Physician Review Additional Text: Problem list Acute hypoxemic respiratory failure secondary to Pneumonia and pulmonary edema CALDERON on CKD 4 L clavicular fracture Left BKA stump ulcer, with acute osteomyelitis Diabetes mellitus, [id number] HTN Chronic tobacco use Acute on Chronic anemia, iron deficiency and heme+ stool Hep C Hypernatremia Respiratory status improved significantly with diuresis and steroids. Patient is tolerating room air. Continue with his zyvox and Levaquin (ID recommended zyvox over vanc) lasix dc'd on 11/14 Patient failed swallow evaluation twice. Speech therapy recommend pureed diet and honey thickened liquids but patient is not eating much or drinking much due to the consistency of the food and water. Patient on IV fluid to keep up with fluid maintenance per day. Hypernatremia secondary reduce fluid intake. This is being treated with IV D5 half-normal saline. Elevated troponin deemed secondary to CALDERON/CKD, hypoxia and anemia. 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 chronic iron deficiency anemia, s/p [address] Goldstein consulted - EGD done showing mild atrophic gastritis. Continue protonix. Hemoglobin has been stable. multiple ecchymosis and L clavicle highly suspicious for recent trauma, however family and patient deny any fall/trauma. unclear of the acuity of his fractured L clavicle. Ortho consulted - recommended no surgical treatment, continue medical management. Continue PT. Continue IV D5 half-normal saline until oral intake improve. Monitor BMP. Dispo: Patient is appropriate for LTAC.
[2020-11-20] MEDS: VANCOMYCIN 1.25 GM in NA CHLORIDE 0.9% 250 ML IVPB SCH (22:48)
[2020-11-21 05:20] LABS: Absolute Lymphocytes (CBC) 0.3 K/uL (0.7-4.9); Basophils % 0.2 % (0-1.3); Hematocrit 29.3 % (39.6-49.0); Lymphocytes % 3.7 % (15.3-44.8); MPV 9.2 fL (7.6-11.3); RBC Red Blood Cell Count 3.47 M/uL (4.33-5.43)
[2020-11-21 05:36] LABS: Potassium 3.5 mmol/L (3.5-5.1)
[2020-11-21] MEDS: METOPROLOL TAR 25 MG TAB PO SCH ×2 (05:43→19:52)
[2020-11-21] MEDS: INSULIN -REGULAR HUMAN 50 UNIT/0.5 ML ML SQ SCH ×4 (07:30→21:00)
[2020-11-21] MEDS ORDERED: POTASSIUM 25 MEQ EFFERV TAB PO ONE (09:00)
[2020-11-21] MEDS: ENSURE PUDDING 4 OZ CUP PO SCH ×2 (09:00→14:28)
[2020-11-21] MEDS: HYDRALAZINE HCL 25 MG TABLET PO SCH ×3 (09:00→21:13)
[2020-11-21] MEDS: COLLAGENASE 30 GM OINTMENT TOP SCH (09:00)
[2020-11-21] MEDS: GLUCERNA SHAKE 237 ML CAN PO SCH ×2 (09:00→21:00)
[2020-11-21] MEDS: Levofloxacin 250mg IV 250 MG/50 ML BAG IV SCH (09:50)
[2020-11-21] MEDS: FAMOTIDINE 20 MG/2 ML VIAL IV SCH (09:50)
[2020-11-21] MEDS: LACTOBACILLUS/ACIDOPHILUS TAB PO SCH ×3 (09:50→21:13)
[2020-11-21] MEDS: AMLODIPINE 5 MG TAB PO SCH (09:51)
[2020-11-21] MEDS: CALCITROL 0.25 MCG CAP PO SCH (09:52)
[2020-11-21] MEDS: VITAMIN D 5,000 UNIT CAP PO SCH (09:52)
--- NOTE | 2020-11-21 13:47 | P.PN ---
Subjective Date of Service: 11/21/20 Chief Complaint: Resp failure Patient complaining of soreness at the sacral area. Patient eating ice and noted to be coughing intermittently. He is afebrile. He denies any shortness of breath. Oxygen saturation is stable on room air. Physical Examination - Vital Signs Temperature: 98.9 F Blood Pressure: 152/82 Pulse: 67 Respirations: 18 Pulse Ox (%): 95 - Physical Exam General: Alert, In no apparent distress HEENT: Mucous membr. moist/pink Neck: JVD not distended Respiratory: Clear to auscultation bilaterally, Normal air movement Cardiovascular: No edema, Regular rate/rhythm, Normal S1 S2 Gastrointestinal: Normal bowel sounds, Soft and benign, Non-distended Musculoskeletal: Other (Left BKA) Integumentary: Other (Wound at the tip of left BKA stump healing well. Small healing wound noted noted in the sacrum, no erythema.) Neurological: Normal speech, Normal strength at 5/5 x4 extr, Cranial nerves 3-12 intact Assessment And Plan - Current Problems (Diagnosis) (1) Pneumonia Current Visit: Yes Status: Acute (2) Pulmonary edema Current Visit: Yes Status: Acute (3) Anemia Current Visit: No Status: Acute Qualifiers: Anemia type: iron deficiency Iron deficiency anemia type: unspecified iron deficiency Qualified Code(s): D50.9 - Iron deficiency anemia, unspecified (4) Elevated troponin Current Visit: No Status: Acute (5) Acute worsening of stage 4 chronic kidney disease Current Visit: Yes Status: Acute (6) Osteomyelitis of tibia Current Visit: No Status: Acute (7) Pressure ulcer of BKA stump, stage 2 Current Visit: No Status: Resolved (8) Hypernatremia Current Visit: Yes Status: Acute Physician Review Additional Text: Problem list Acute hypoxemic respiratory failure secondary to Pneumonia and pulmonary edema CALDERON on CKD 4 L clavicular fracture Left BKA stump ulcer, with acute osteomyelitis Diabetes mellitus, [id number] HTN Chronic tobacco use Acute on Chronic anemia, iron deficiency and heme+ stool Hep C Hypernatremia Respiratory status improved significantly with diuresis and steroids. He is stable on room air. Continue with his zyvox and Levaquin (ID recommended zyvox over vanc) lasix dc'd on 11/14 Patient failed swallow evaluation twice. Speech therapy recommend pureed diet and honey thickened liquids but patient is not eating much or drinking much due to the consistency of the food and water. Patient kept on IV fluid to keep up with fluid maintenance per day. Hypernatremia secondary reduce fluid intake has resolved with IV D5 half-normal saline. Continue IV fluid. Elevated troponin deemed secondary to CALDERON/CKD, hypoxia and anemia. 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 chronic iron deficiency anemia, s/p [address] Goldstein consulted - EGD done showing mild atrophic gastritis. Continue protonix. Hemoglobin has been stable. multiple ecchymosis and L clavicle highly suspicious for recent trauma, however family and patient deny any fall/trauma. unclear of the acuity of his fractured L clavicle. Ortho recommended no surgical treatment, continue medical management. Platelet count trending down. Discontinued heparin for DVT prophylaxis. Continue PT. SCD for DVT prophylaxis Dispo: Patient is appropriate for LTAC.
[2020-11-21] MEDS: SOD FERRIC GLUC COMPLX/SUCROSE 125 MG in NA CHLORIDE 0.9% 250 ML IV SCH (14:06)
[2020-11-21] MEDS ORDERED: MAGNES/ALUMIN/SIMET 30ML UCUP PO ONE (19:46)
[2020-11-21] MEDS: ONDANSETRON 4 MG/2 ML VIAL IV PRN (19:53)
[2020-11-21] MEDS: D5 0.45 NS 1,000 ML IV SCH ×2 (21:00→22:51)
[2020-11-22 05:34] LABS: Absolute Lymphocytes (CBC) 0.6 K/uL (0.7-4.9); Basophils % 0.3 % (0-1.3); Hematocrit 33.2 % (39.6-49.0); Lymphocytes % 5.6 % (15.3-44.8); MPV 8.7 fL (7.6-11.3); RBC Red Blood Cell Count 3.93 M/uL (4.33-5.43)
[2020-11-22] MEDS: METOPROLOL TAR 25 MG TAB PO SCH ×2 (05:37→17:54)
[2020-11-22 06:00] LABS: Potassium 3.4 mmol/L (3.5-5.1)
[2020-11-22] MEDS: KCL 20 MEQ/100 mL IVPB 20 MEQ/100 ML BAG IV SCH ×2 (06:32→10:16)
[2020-11-22] MEDS: INSULIN -REGULAR HUMAN 50 UNIT/0.5 ML ML SQ SCH ×4 (07:30→21:00)
[2020-11-22] MEDS: GLUCERNA SHAKE 237 ML CAN PO SCH ×2 (09:00→21:00)
[2020-11-22] MEDS: ENSURE PUDDING 4 OZ CUP PO SCH ×2 (09:00→16:56)
[2020-11-22] MEDS: COLLAGENASE 30 GM OINTMENT TOP SCH (09:00)
[2020-11-22] MEDS: CALCITROL 0.25 MCG CAP PO SCH (10:17)
[2020-11-22] MEDS: AMLODIPINE 5 MG TAB PO SCH (10:17)
--- NOTE | 2020-11-22 10:17 | P.PN ---
Date of Service: 11/22/20 Missed Visit. patient not in room. gone down for MRI. as per , doing ok overall. taking some po intake but still not back to baseline.
[2020-11-22] MEDS: FAMOTIDINE 20 MG/2 ML VIAL IV SCH (10:18)
[2020-11-22] MEDS: HYDRALAZINE HCL 25 MG TABLET PO SCH ×3 (10:18→21:25)
[2020-11-22] MEDS: VITAMIN D 5,000 UNIT CAP PO SCH (10:18)
[2020-11-22] MEDS: LACTOBACILLUS/ACIDOPHILUS TAB PO SCH ×3 (10:18→21:25)
--- NOTE | 2020-11-22 10:23 | RAD REPORT ---
EXAM DESCRIPTION: MRI - Brain Wo Cont - 11/22/2020 9:51 am CLINICAL HISTORY: Dysphagia, rule out acute CVA. COMPARISON: No comparisons TECHNIQUE: Sagittal T1-weighted images were obtained along with axial PD, heavily T2-weighted and T2 -FLAIR images. Axial DWI and ADC mapping sequences were also obtained along with coronal heavily T2-w eighted images. FINDINGS: No intracranial hemorrhage. There is no mass, edema or shift of midline structures. Diffus ion-weighted imaging shows punctate areas of cortical restricted diffusion in the left frontal lobe a nd left frontal parietal junction. There are corresponding areas of diminished signal on ADC mapping. There is a punctate diffusion abnormality in the posterior right thalamus but also has matching dimi nished signal on ADC mapping. Suspected restricted diffusion abnormality seen in the posterior left o ccipital lobe and in the lateral inferior left cerebellum. All these sites are believed to be nonhemo rrhagic CVA. Patient has mild to moderate for age atrophy. Ventricles are in proportion. Advanced for age extensi ve white matter signal abnormalities throughout the cerebral hemispheres. Basal ganglia and thalamus show comparatively little chronic ischemic change. No significant chronic ischemic change in the brai nstem. No extra-axial fluid collections. White-matter/white matter junction is preserved. Signal voids are seen as a normal finding in the major intracranial vessels. Mastoid air cells are clear. No acute paranasal sinus finding. No sella or supra sella abnormality. N o acute globe or orbital content abnormality seen. 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 Patient has as a baseline very advanced for age chronic ischemic change throughout the cerebral white matter.
[2020-11-22] MEDS: SOD FERRIC GLUC COMPLX/SUCROSE 125 MG in NA CHLORIDE 0.9% 250 ML IV SCH (11:48)
--- NOTE | 2020-11-22 11:54 | P.PN ---
Subjective Date of Service: 11/22/20 Chief Complaint: Resp failure Patient seen examined at bedside, awaiting on transfer to [place]. Repeat chest x-ray ordered. Review of Systems 10-point ROS is otherwise unremarkable Physical Examination - Vital Signs Temperature: 98.3 F Blood Pressure: 149/79 Pulse: 68 Respirations: 16 Pulse Ox (%): 92 - Studies Temp Pulse Resp BP Pulse Ox 98.3 F 68 16 149/79 H 92 11/22/20 11:46 11/22/20 11:46 11/22/20 11:46 11/22/20 11:46 11/22/20 11:46 Laboratory Last Values WBC 12.30 K/uL (4.3-10.9) H D 11/06/20 18:24 RBC 2.59 M/uL (4.33-5.43) L 11/06/20 18:24 Hgb 7.1 g/dL (13.6-17.9) L* 11/06/20 18:24 Hct 22.0 % (39.6-49.0) L 11/06/20 18:24 MCV 85.2 fL (80-100) D 11/06/20 18:24 MCH 27.4 pg (27.0-35.0) 11/06/20 18:24 MCHC 32.1 g/dL (32.0-36.0) 11/06/20 18:24 RDW 15.3 % (12.1-15.2) H 11/06/20 18:24 Plt Count 178 K/uL (152-406) D 11/06/20 18:24 MPV 9.4 fL (7.6-11.3) 11/06/20 18:24 Neutrophils % 81.8 % (41.7-73.7) H 11/06/20 18:24 Lymphocytes % 9.1 % (15.3-44.8) L 11/06/20 18:24 Monocytes % 8.7 % (3.3-12.3) 11/06/20 18:24 Eosinophils % 0.1 % (0-4.4) 11/06/20 18:24 Basophils % 0.3 % (0-1.3) 11/06/20 18:24 Absolute Neutrophils 10.0 K/uL (1.8-8.0) H 11/06/20 18:24 Absolute Lymphocytes 1.1 K/uL (0.7-4.9) 11/06/20 18:24 Absolute Monocytes 1.1 K/uL (0.1-1.3) 11/06/20 18:24 Absolute Eosinophils 0.0 K/uL (0-0.5) 11/06/20 18:24 Absolute Basophils 0.0 K/uL (0-0.5) 11/06/20 18:24 PT 12.5 SECONDS (9.5-12.5) 11/06/20 18:24 INR 1.09 11/06/20 18:24 APTT 28.2 SECONDS (24.3-36.9) 11/06/20 18:24 pH 7.36 (7.35-7.45) 11/06/20 18:39 pCO2 34.6 mmHG (35-45) L 11/06/20 18:39 pO2 59.1 mmHG (75-100) L 11/06/20 18:39 HCO3 19.1 mmol/L (22-28) L 11/06/20 18:39 Base Excess -5.3 mmol/L 11/06/20 18:39 Oxyhemoglobin 83.5 % (94-97) L 11/06/20 18:39 ABG O2 Sat (Measured) 86.3 % (92-98.5) L 11/06/20 18:39 ABG Carboxyhemoglobin 2.0 % (0-1.5) H 11/06/20 18:39 ABG Methemoglobin 1.2 % (0-1.5) 11/06/20 18:39 Other Total Hgb 7.2 g/dl (12-18) L 11/06/20 18:39 Inspired O2 40.0 % 11/06/20 18:39 Sodium 139 mmol/L (136-145) 11/06/20 18:24 Potassium 5.4 mmol/L (3.5-5.1) H 11/06/20 18:24 Chloride 108 mmol/L (98-107) H 11/06/20 18:24 Carbon Dioxide 20 mmol/L (21-32) L 11/06/20 18:24 BUN 67 mg/dL (7-18) H D 11/06/20 18:24 Creatinine 3.18 mg/dL (0.55-1.3) H D 11/06/20 18:24 Estimated GFR 20 mL/min (=/>90) L 11/06/20 18:24 Glucose 179 mg/dL (74-106) H 11/06/20 18:24 Lactic Acid 2.0 mmol/L (0.4-2.0) 11/06/20 19:46 Calcium 8.9 mg/dL (8.5-10.1) 11/06/20 18:24 Magnesium 2.4 mg/dL (1.8-2.4) 11/06/20 18:24 Total Bilirubin 0.6 mg/dL (0.2-1.0) 11/06/20 18:24 Direct Bilirubin 0.3 mg/dL (0-0.2) H 11/06/20 18:24 AST 140 U/L (15-37) H D 11/06/20 18:24 ALT 70 U/L (12-78) 11/06/20 18:24 Alkaline Phosphatase 172 U/L (45-117) H 11/06/20 18:24 Troponin I 1.13 ng/mL (0.0-0.045) H* 11/06/20 18:24 NT-Pro-B Natriuret Pep 35445 pg/mL (<125) H 11/06/20 18:24 Serum Total Protein 7.3 g/dL (6.4-8.2) 11/06/20 18:24 Albumin 2.5 g/dL (3.4-5.0) L 11/06/20 18:24 Globulin 4.8 g/dL (2.3-3.5) H 11/06/20 18:24 Albumin/Globulin Ratio 0.5 (1.1-1.8) L 11/06/20 18:24 Lipase 89 U/L (73-393) 11/06/20 18:24 Procalcitonin 0.25 ng/mL (<0.050) H 11/06/20 19:46 Vancomycin Trough 11.3 ug/mL (5.0-20.0) 11/06/20 18:24 Influenza Type A RNA Negative (NEGATIVE) 11/06/20 18:24 Influenza Type B RNA Negative (NEGATIVE) 11/06/20 18:24 SARS-CoV-2 RNA (RT-PCR) Negative (NEGATIVE) 11/06/20 18:24 ABO/Rh B POSITIVE 11/06/20 19:46 Solid Phase Ab Screen Negative 11/06/20 19:46 Crossmatch See Detail 11/06/20 19:46 Assessment And Plan - Plan General: Cachectic, Confused HEENT: Atraumatic, Normocephalic Neck: Supple, 2+ carotid pulse no bruit Respiratory: Clear to auscultation bilaterally Cardiovascular: No edema, Normal S1 S2 Capillary refill: <2 Seconds Gastrointestinal: Normal bowel sounds, Hypoactive Integumentary: Other (Extensive bruising to left neck and chest area. left collerbone fracture with swelling. Ulcer to left BKA stump.) Antibiotics: current Vancomycin tart: 11/19 stop: 12/12 Levaquin start: 11/09 stop: 12/12 DC: daptomycin start: 11/08 stop: 11/12 zyvox start: 11/12 stop: 11/19 Assessment: -osteomyelitis of left BKA stump -bilateral multifocal pneumonia vs pulmonary edema -leukocytosis -diabetes type 2 -CKD stage 4 -chronic tobacco user -anemia Plan: -MRI from previous visit confirmed osteomyelitis left BKA stump. Patient on the antibiotic course of 6 weeks. Patient switched from vancomycin to daptomycin due to worsening kidney function. Patient had code blue on 11/12: Daptomycin switch to zyvox due to possible lung damage. Patient restarted on vancomycin on 11/19 with Zosyn discontinued due to thrombocytopenia. Due to worsening thrombocytopenia on vancomycin has been Dc. Will restart vancomycin tomorrow if platelets continue to trend upward. Weekly labs: CBC, CRP, BMP, vanc trough. Vanc trough goal of 15-20 -chest x-ray and chest CT shows bilateral pulmonary opacities, pneumonia versus pulmonary edema. Continue current antibiotic treatments. Pulmonology following, sputum studies revealed normal respiratory simi. Patient weaned off oxygen tolerating room air. -leukocytosis: Resolved WBC now within normal range. Previous Increase in white blood cell count could be due to trauma patient experienced outpatient resulting in left collarbone fx and extensive bruising to the neck and upper extremity. -iron deficiency anemia: Maintain hemoglobin of at least 7.0 recommend transfusion hemoglobin drops below 7.0. Hemoglobin up trending, 10.3 on 11/15. -renally dose antibiotics due to CKD. Renal function shows improvement. -social work consultation ordered for transfer to [place] [facility]. -medical management per primary team -continue monitor CBC and BMP -continue to monitor for signs of infection Plan of care discussed with Dr. Payton Thank you for consultation
--- NOTE | 2020-11-22 15:25 | RAD REPORT ---
EXAM DESCRIPTION: RAD - Chest Single View - 11/22/2020 3:14 pm CLINICAL HISTORY: f/u pneumonia Chest pain. COMPARISON: Chest Single View dated 11/18/2020; Chest Single View dated 11/15/2020; Chest Single View da altagracia 11/14/2020; Chest Single View dated 11/13/2020 FINDINGS: Portable technique limits examination quality. Bilateral mild interstitial lung opacity appears slightly worse than on prior study. The heart is nor mal in size. Tortuous thoracic aorta.Right-sided PICC line has tip in the SVC/ right atrium junction.
[2020-11-22] MEDS: D5 0.45 NS 1,000 ML IV SCH ×2 (17:00→21:26)
--- NOTE | 2020-11-22 18:51 | P.PN ---
Subjective Date of Service: 11/22/20 Chief Complaint: Resp failure Patient has no new complaint today. Patient tolerating feeding at this time. He is afebrile. He denies any shortness of breath. Oxygen saturation is stable on room air. Physical Examination - Vital Signs Temperature: 98.4 F Blood Pressure: 181/79 Pulse: 74 Respirations: 16 Pulse Ox (%): 100 - Physical Exam General: Alert, In no apparent distress HEENT: Mucous membr. moist/pink Neck: JVD not distended Respiratory: Clear to auscultation bilaterally, Normal air movement Cardiovascular: No edema, Regular rate/rhythm, Normal S1 S2 Gastrointestinal: Normal bowel sounds, Soft and benign, Non-distended, No tenderness Musculoskeletal: No swelling, Other (Left BKA.) Integumentary: Other (Left BKA stump wound is healing) Neurological: Normal strength at 5/5 x4 extr, Cranial nerves 3-12 intact Assessment And Plan - Current Problems (Diagnosis) (1) Pneumonia Current Visit: Yes Status: Acute (2) Pulmonary edema Current Visit: Yes Status: Acute (3) Anemia Current Visit: No Status: Acute Qualifiers: Anemia type: iron deficiency Iron deficiency anemia type: unspecified iron deficiency Qualified Code(s): D50.9 - Iron deficiency anemia, unspecified (4) Elevated troponin Current Visit: No Status: Acute (5) Acute worsening of stage 4 chronic kidney disease Current Visit: Yes Status: Acute (6) Osteomyelitis of tibia Current Visit: No Status: Acute (7) Pressure ulcer of BKA stump, stage 2 Current Visit: No Status: Resolved (8) Hypernatremia Current Visit: Yes Status: Acute (9) Acute CVA (cerebrovascular accident) Current Visit: Yes Status: Acute Physician Review Additional Text: Problem list Acute hypoxemic respiratory failure secondary to Pneumonia and pulmonary edema CALDERON on CKD 4 L clavicular fracture Left BKA stump ulcer, with acute osteomyelitis Diabetes mellitus, [id number] HTN Chronic tobacco use Acute on Chronic anemia, iron deficiency and heme+ stool Hep C Hypernatremia Oral pharyngeal dysphagia. Acute respiratory failure resolved. He is stable on room air. Continue with Levaquin. lasix dc'd on 11/14 Patient failed swallow evaluation twice. Speech therapy recommend pureed diet and honey thickened liquids but patient is not eating much or drinking much due to the consistency of the food and water. Patient kept on IV fluid to keep up with fluid maintenance per day. Hypernatremia secondary reduce fluid intake has resolved with IV D5 half-normal saline. Continue IV fluid. Possible causes of the thrombocytopenia include liver disease or Zyvox induced. Zyvox for left BKA osteomyelitis changed to vancomycin due to thrombocytopenia. MRI of the brain done to evaluate dysphagia now reporting multiple focuses of acute CVA. He is high risk for bleeding given thrombocytopenia. Will need aspirin once thrombocytopenia improve. Continue dysphagia diet Elevated troponin deemed secondary to CALDERON/CKD, hypoxia and anemia. Patient will need to f/u with lamination spinner for further planning/management of hepatitis-C. chronic iron deficiency anemia, s/p [address] Goldstein consulted - EGD done showing mild atrophic gastritis. Continue protonix. Hemoglobin has been stable. multiple ecchymosis and L clavicle highly suspicious for recent trauma, however family and patient deny any fall/trauma. unclear of the acuity of his fractured L clavicle. Ortho recommended no surgical treatment, continue medical management. Continue PT. SCD for DVT prophylaxis Dispo: Patient is appropriate for LTAC. Peer to peer review for LTAC placement to be done by Dr. Payton.
[2020-11-23] MEDS: METOPROLOL TAR 25 MG TAB PO SCH ×2 (06:09→17:11)
[2020-11-23 06:29] LABS: Absolute Lymphocytes (CBC) 0.6 K/uL (0.7-4.9); Basophils % 0.4 % (0-1.3); Hematocrit 30.8 % (39.6-49.0); Lymphocytes % 7.8 % (15.3-44.8); MPV 10.6 fL (7.6-11.3); RBC Red Blood Cell Count 3.66 M/uL (4.33-5.43)
[2020-11-23 06:47] LABS: Potassium 3.8 mmol/L (3.5-5.1)
[2020-11-23] MEDS: Levofloxacin 250mg IV 250 MG/50 ML BAG IV SCH (08:00)
[2020-11-23] MEDS: HYDRALAZINE HCL 25 MG TABLET PO SCH ×3 (08:10→21:00)
[2020-11-23] MEDS: CALCITROL 0.25 MCG CAP PO SCH (08:10)
[2020-11-23] MEDS: VITAMIN D 5,000 UNIT CAP PO SCH (08:10)
[2020-11-23] MEDS: LACTOBACILLUS/ACIDOPHILUS TAB PO SCH ×3 (08:10→21:26)
[2020-11-23] MEDS: AMLODIPINE 5 MG TAB PO SCH (08:11)
[2020-11-23] MEDS: FAMOTIDINE 20 MG/2 ML VIAL IV SCH (08:11)
[2020-11-23] MEDS: GLUCERNA SHAKE 237 ML CAN PO SCH ×2 (08:12→21:00)
[2020-11-23] MEDS: ENSURE PUDDING 4 OZ CUP PO SCH ×2 (08:13→14:00)
[2020-11-23] MEDS: COLLAGENASE 30 GM OINTMENT TOP SCH (08:29)
[2020-11-23] MEDS: INSULIN -REGULAR HUMAN 50 UNIT/0.5 ML ML SQ SCH ×4 (08:30→21:00)
[2020-11-23 08:38] LABS: Anisocytosis 1+; Blood Morphology Comment NOTED (NOT SEEN); Platelet Estimate DECR
[2020-11-23] MEDS ORDERED: POTASSIUM 25 MEQ EFFERV TAB PO ONE (09:00)
[2020-11-23] MEDS ORDERED: FOLIC ACID 1 MG, MULTIVITAMINS INJ 10 ML, THIAMINE HCL 100 MG in NA CHLORIDE 0.9% 1,000 ML IV ONE (09:54)
--- NOTE | 2020-11-23 10:58 | RAD REPORT ---
EXAM DESCRIPTION: USCarotid Artery Bilateral11/23/2020 10:21 am CLINICAL HISTORY: CVA COMPARISON: None FINDINGS: The velocity of the right internal carotid artery equals 166 cm/sec. The right ICA/CCA rat io 2.5 The velocity of the left internal carotid artery equals 127 cm/sec. The left ICA/CCA ratio 1. Moderate plaque right internal carotid artery. Mild plaque left internal carotid artery The vertebral arteries demonstrate antegrade flow IMPRESSION: Moderate plaque right internal carotid artery appears to result in an approximately 50-5 5% stenosis NASCET criteria used. Mild 0-49% stenosis Moderate 50-69% stenosis Severe 70-99% stenosis
--- NOTE | 2020-11-23 11:15 | P.PN ---
Subjective Date of Service: 11/23/20 Chief Complaint: Resp failure Patient seen examined at bedside, patient was denied by insurance for transfer to [place]. They denied peer to peer. Appeal has been sent. Patient has been placed back on oxygen via nasal cannula. Review of Systems 10-point ROS is otherwise unremarkable Physical Examination - Vital Signs Temperature: 98.2 F Blood Pressure: 154/84 Pulse: 62 Respirations: 16 Pulse Ox (%): 100 - Studies Temp Pulse Resp BP Pulse Ox 98.2 F 62 16 154/84 H 100 11/23/20 08:00 11/23/20 08:11 11/23/20 08:00 11/23/20 08:11 11/23/20 08:00 ALLERGIES Penicillins Allergy (Intermediate, Verified 03/03/19 18:20) Rash CARE PLAN Osteomyelitis Start: 11/09/20 14:12 Freq: Status: Active Protocol: Created 11/09/20 14:12 TF (Rec: 11/09/20 14:12 TF [email or web address]) ASSESSMENTS/INTERVENTIONS Discrete Data Interface Start: 11/07/20 09:05 Freq: Status: Active Protocol: Document 11/06/20 15:40 IATRIC (Rec: 11/07/20 09:07 IATRIC [email or web address]) Discrete Data Interface from [facility] to [facility] Vital Signs Temperature (96.8 F-100.9 F) 97.6 F Pulse Rate (50-90) 87 Respiratory Rate (12-20) 17 Blood Pressure (90/60-140/90 mm Hg) 111/72 O2 Sat by Pulse Oximetry (91) 94 Pain Level 10 Document 11/06/20 15:40 IATRIC (Rec: 11/07/20 09:21 IATRIC [email or web address]) Discrete Data Interface from [employer] to [facility] Height/Weight Height 5 ft 3 in Document 11/06/20 18:26 IATRIC (Rec: 11/07/20 09:08 IATRIC [email or web address]) Discrete Data Interface from [employer] to [facility] Vital Signs O2 Sat by Pulse Oximetry (91) 55 Document 11/06/20 18:26 IATRIC (Rec: 11/07/20 09:20 IATRIC [email or web address]) Discrete Data Interface from [employer] to [facility] Height/Weight Height 5 ft 3 in Document 11/06/20 18:37 IATRIC (Rec: 11/07/20 09:06 IATRIC [email or web address]) Discrete Data Interface from [employer] [facility] to [facility] Medical History Nutrition Problem(s) None Document 11/06/20 18:37 IATRIC (Rec: 11/07/20 09:10 IATRIC [email or web address]) Discrete Data Interface from [employer] [facility] to [facility] Vital Signs Pulse Rate (50-90) 92 Respiratory Rate (12-20) 32 Blood Pressure (90/60-140/90 mm Hg) 147/84 O2 Sat by Pulse Oximetry (91) 86 Oxygen Flow Rate (L/min) 5 Document 11/06/20 18:37 IATRIC (Rec: 11/07/20 09:22 IATRIC [email or web address]) Discrete Data Interface from [facility] to [facility] Height/Weight Height 5 ft 3 in Document 11/06/20 19:11 IATRIC (Rec: 11/07/20 09:11 IATRIC [email or web address]) Discrete Data Interface from [employer] to [facility] Vital Signs Pulse Rate (50-90) 82 Respiratory Rate (12-20) 16 Blood Pressure (90/60-140/90 mm Hg) 147/84 O2 Sat by Pulse Oximetry (91) 100 Oxygen Flow Rate (L/min) 10 Document 11/06/20 19:11 IATRIC (Rec: 11/07/20 09:22 IATRIC [email or web address]) Discrete Data Interface from [employer] to [facility] Height/Weight Height 5 ft 3 in Document 11/06/20 21:30 IATRIC (Rec: 11/07/20 09:23 IATRIC [email or web address]) Discrete Data Interface from [employer] to [place] Height/Weight Height 5 ft 3 in Oxygen Delivery (RT) Nasal Cannula 2 lpm Start: 11/06/20 22:56 Freq: Status: Active Protocol: Document 11/06/20 20:00 RD (Rec: 11/07/20 03:35 RD [email or web address]) Oxygen Delivery Oxygen Delivery Oxygen Hours 5 O2 Duration (1-21hrs) 5 Oxygen Delivery Method Nasal Cannula Oxygen Flow Rate (L/min) 10 O2 Sat by Pulse Oximetry (91) 95 Test Phase Resting Instruction Patient Instructed Yes Pulse Oximetry Assessment (RT) Start: 11/06/20 22:56 Freq: CONT Status: Complete Protocol: Document 11/06/20 20:00 RD (Rec: 11/07/20 03:35 RD [email or web address]) Pulse Oximetry Assessment Pulse Oximetry Pulse Ox Monitoring Type Spot Check Monitoring Oxygen Saturation (%) (91) 95 Test Phase Resting Oxygen Flow Rate (L/min) (L/min) 10 Oxygen Delivery Method Nasal Cannula VITAL SIGNS Temp Pulse Resp BP 11/06/20 19:11 82 16 147/84 H 11/06/20 18:37 92 H 32 H 147/84 H 11/06/20 15:40 97.6 F 87 17 111/72 ORDERS 11/06/20 19:37 Blood - Blood Aerobic Blood Culture - Final No growth in 5 days. 11/06/20 19:37 Blood - Blood Anaerobic Blood Culture - Final No growth in 5 days. 11/06/20 19:46 Blood - Blood Aerobic Blood Culture - Final No growth in 5 days. 11/06/20 19:46 Blood - Blood Anaerobic Blood Culture - Final No growth in 5 days. Assessment And Plan - Plan General: Cachectic, Confused HEENT: Atraumatic, Normocephalic Neck: Supple, 2+ carotid pulse no bruit Respiratory: Bibasilar crackles Cardiovascular: No edema, Normal S1 S2 Capillary refill: <2 Seconds Gastrointestinal: Normal bowel sounds, Hypoactive Integumentary: Other (Extensive bruising to left neck and chest area. left collerbone fracture with swelling. Ulcer to left BKA stump.) Antibiotics: current Vancomycin tart: 11/19 stop: 12/12 Levaquin start: 11/09 stop: 12/12 DC: daptomycin start: 11/08 stop: 11/12 zyvox start: 11/12 stop: 11/19 Assessment: -osteomyelitis of left BKA stump -thrombocytopenia -bilateral multifocal pneumonia vs pulmonary edema -leukocytosis -diabetes type 2 -CKD stage 4 -chronic tobacco user -anemia Plan: -MRI from previous visit confirmed osteomyelitis left BKA stump. Patient on the antibiotic course of 6 weeks. Patient switched from vancomycin to daptomycin due to worsening kidney function. Patient had code blue on 11/12: Daptomycin switch to zyvox due to possible lung damage. Patient restarted on vancomycin on 11/19 with Zosyn discontinued due to thrombocytopenia. Due to worsening thrombocytopenia on vancomycin has been Dc. Weekly labs: CBC, CRP, BMP, vanc trough. Vanc trough goal of 15-20 -throbocytopenia: Zyvox discontinued on 11/19 due to worsening thrombocytopenia. Vancomycin Dc on 11/22. Platelet count continues to drop, recommend going through patient's medication list in seeing if patient is on any agents that can cause thrombocytopenia. Patient has no history of any bleeding disorders. Will restart vancomycin tomorrow if platelets continue to trend upward. -chest x-ray and chest CT shows bilateral pulmonary opacities, pneumonia versus pulmonary edema. Continue current antibiotic treatments. Pulmonology following, sputum studies revealed normal respiratory simi. Patient weaned off oxygen tolerating room air. Repeat chest x-ray on 11/22 shows mild worsening of the bilateral pulmonary up a cities -leukocytosis: Resolved WBC now within normal range. Previous Increase in white blood cell count could be due to trauma patient experienced outpatient resulting in left collarbone fx and extensive bruising to the neck and upper extremity. -iron deficiency anemia: Maintain hemoglobin of at least 7.[address] ansfusion hemoglobin drops below 7.0. Hemoglobin up trending, 10.3 on 11/15. -renally dose antibiotics due to CKD. Renal function shows improvement. -social work consultation ordered for transfer to [facility]: Initial request denies it. Peer to peer denied. Awaiting an appeal. -medical management per primary team -continue monitor CBC and BMP -continue to monitor for signs of infection Plan of care discussed with Dr. Payton Thank you for consultation
[2020-11-23] MEDS: SOD FERRIC GLUC COMPLX/SUCROSE 125 MG in NA CHLORIDE 0.9% 250 ML IV SCH (11:52)
[2020-11-23] MEDS ORDERED: FUROSEMIDE 40 MG/4 ML VIAL IV ONE (14:00)
--- NOTE | 2020-11-23 14:33 | P.PN ---
Subjective Date of Service: 11/23/20 Chief Complaint: Resp failure Subjective: No new changes (patient without complaints this morning, reports he feels fine, asking when he can be transferred to the next facility. No acute events overnight. Platelets remain low. MRI brain yesterday with concern for multiple acute CVAs) Review of Systems 10-point ROS is otherwise unremarkable Physical Examination - Vital Signs Temperature: 98.6 F Blood Pressure: 120/64 Pulse: 73 Respirations: 16 Pulse Ox (%): 99 Assessment & Plan Physician Review Additional Text: Physical Exam General: Alert, In no apparent distress HEENT: Mucous membr. moist/pink, normal conjunctiva Neck: JVD not distended Respiratory: Clear to auscultation bilaterally, Normal air movement Cardiovascular: trace b/l pedal edema, Regular rate/rhythm, Normal S1 S2 Gastrointestinal: Soft and benign, Non-distended, No tenderness Musculoskeletal: s/p L BKA Integumentary: L BKA stump - small ~4cm wound, no erythema, no drainage Neurological: Normal strength at 5/5 x4 extr Problem list Acute hypoxemic respiratory failure secondary to Pneumonia and pulmonary edema CALDERON on CKD 4 L clavicular fracture Left BKA stump ulcer, with acute osteomyelitis Diabetes mellitus, [id number] HTN Chronic tobacco use Acute on Chronic anemia, iron deficiency and heme+ stool Hep C Hypernatremia Oral pharyngeal dysphagia. Acute respiratory failure resolved. needing minimal O2 supplementation Continue with Levaquin. Off zyvox and vanc due to concern for thrombocytopenia per ID Patient failed swallow evaluation twice. ST recommended pureed diet and honey thickened liquids, but patient is not eating much or drinking much due to the consistency of the food and water. Possible causes of the thrombocytopenia include liver disease vs zyvox, vs vanc. unlikely HIT Zyvox for left BKA osteomyelitis changed to vancomycin due to thrombocytopenia, but vanc discontinued due to continued thrombocytopenia CXR (11/22) mild worsening of b/l opacities, has been off lasix for several days, may benefit from dose today MRI of the brain done to evaluate dysphagia now reporting multiple foci of acute CVA. He is high risk for bleeding given thrombocytopenia. Neurology consulted - recommended Eliquis, however need to wait for thrombocytopenia to resolve given current high risk for bleeding family report significant h/o alcohol use, discussed with nephrology - recommended banana bag with IV Lasix x1 Elevated troponin deemed secondary to CALDERON/CKD, hypoxia and anemia. Patient will need to f/u with braille typist for further planning/management of hepatitis-C. chronic iron deficiency anemia, s/p [address] Goldstein consulted - EGD done showing mild atrophic gastritis. Continue protonix. Hemoglobin has been stable. Receiving IV iron multiple ecchymosis and L clavicle highly suspicious for recent trauma prior to this admission, however family and patient deny any fall/trauma. unclear of the acuity of his fractured L clavicle. Ortho recommended no surgical treatment, continue medical management. Continue PT. SCD for DVT prophylaxis Dispo: Patient is appropriate for LTAC - he needs antibiotics, PT/rehab for speech given new CVA. Peer to peer review for LTAC placement done by Dr. Payton awaiting results Time Spent Managing Pts Care (In Minutes): 35
--- NOTE | 2020-11-23 14:42 | PN ---
Subjective: The patient is seen in Room 221 at [facility]. The patient is a 69-year-old male with recent question of stroke. The patient has some difficulty with swallowi ng, has not been taking good p.o. intake. His acute kidney injury is improving. He is alert, awake, and able to answer some questions, but is somewhat confused. His is a little bit more helpful in answering questions for him. The patient, however, is alert and seems to be breathing comfortably without any issues. He has no swelling in his lower extremities. Has an amputation on one of his l imbs and lower extremities. He denies any pain currently. He is able to answer questions. He has b een having urine output with up to 600 mL over the last 8 hour shift. Objective: Vital Signs: On evaluation of his vitals, the patient's vitals are reasonably stable. H is blood pressure has been running slightly on the higher side of 154/84. On last check, his O2 sats 100% on room air. His pulse is at 60 to 65 and regular. He is afebrile. Lungs: Clear to auscultation. Abdomen: Soft. Extremities: Do not reveal any edema. Diagnostic Data: The patient had a brain MRI yesterday. The results of the MRI showed that multiple punctate nonhemorrhagic acute CVA changes are present in the left cerebral hemisphere, posterior rig ht thalamus and lateral inferior left cerebral subdural velum as detailed. The patient has baseline very advanced for age chronic ischemic change. The patient has as a baseline very advanced for age c hronic ischemic change throughout the cerebral white matter. Laboratory Data: The patient's labs show WBC of 7.7, hemoglobin and hematocrit 9.8 and 30.8, platele t count of 45, stable for the past 2 days, but on the lower side. Chemistry shows sodium 140, potass ium 3.8, chloride 107, bicarb is 28, BUN and creatinine are 40 and 1.53. Assessment And Plan: The patient with significant improvement with his renal status. Acute kidney i njury is improving. The patient has a history of heavy alcohol use and at this point, now that he is waking up, he is telling us that he does drink quite a bit of alcohol. The confirms that too. We would recommend stopping his current IV fluids, giving him a banana bag at 100 mL an hour for 1 L and giving him a dose of Lasix at 40 mg IV. Recheck the BMP tomorrow morning. /MELY Voice ID: [id number] Report ID: [id number]
--- NOTE | 2020-11-23 21:52 | CON ---
Reason For Consultation: Consultation called because of multiple strokes. History Of Present Illness: Mr. 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 He also had pain and a PIC C line. He was receiving antibiotics at home to continue treatment for the osteomyelitis and that wa s addressed surgically. Since he has been in the hospital now 3 weeks, he has had failure to thrive with difficulty with being able to speak clearly to have great swallowing and has been somewhat sleep y and sedated. He, however, did not have any clear focal deficits in terms of face, arm, and leg num bness or weakness. As part of the evaluation, a brain MRI was done on 11/22/2020. The study identif ied multiple areas of punctate nonhemorrhagic acute strokes in the left cerebral hemisphere, right po sterior thalamus, and lateral inferior cerebellum. Furthermore, the patient's brain had a baseline o f very advanced chronic ischemic change throughout the cerebral white matter. The patient himself redmond s a history of drinking of a quarter of alcohol daily for perhaps 40 years or more and likely it is a big contributing factor to his condition. In addition, he has end-stage renal disease on hemodialys is and multiple medical comorbid problems. At the time of my evaluation, the patient was lying in be d. He was able to be transferred by the physical therapist, but was not ambulating any significant d istances and he is now in hospital for 3 weeks and is likely very debilitated. Past Medical History: As indicated. Past Surgical History: Left [id number] amputation. Social History: Heavy alcohol and tobacco use. Family History: Noncontributory. Allergies: PENICILLIN. Current Medications: Norvasc 10 mg daily, Tessalon Perles 100 mg 3 times daily, vitamin D3 5000 unit s daily, collagenase to stump, hydralazine for blood pressure control 100 mg 3 times daily. He has f olic acid along with multivitamin, folic acid 1 mg, thiamine 100 mg in IV bag, Levaquin 250 mg every 48 hours, Lopressor 50 mg twice daily. Review of Systems: The patient has had diffuse weakness, significant with difficulty with articulation, problems with sw allowing, and mild myalgias and arthralgias. Physical Examination: Vital Signs: Blood pressure 149/78, pulse of 73, respiratory rate 16, temperature 97.9, oxygen satur ation 98%. Weight 130 pounds, height 5 feet 3 inches, BMI 23. General: Mr. Matamoros is resting in bed. He is somewhat sleepy, but easily aroused, and oriented to person and situation. He follows simple commands without difficulty. Neurologic: Cranial nerves did not show any focal deficits despite the findings on his MRI. His mot or examination is diffusely weak, around 4/5 in the upper and lower extremities without any obvious f ocal changes from one side to the other. Sensory exam, he had stocking-glove loss to light touch and temperature. Reflexes are low and depressed in the upper and lower extremities. Coordination is sl ow, but is intact and he does require maximum assistance to stand and attempt ambulation. Laboratory Data: Most recent complete blood count with differential shows hemoglobin of 9.8, platele ts are low to 45. INR 1.09. Glucose ranged from 135 to 174, creatinine 1.53, calcium 7.9. Sodium, potassium, chloride, carbon dioxide were normal. His vancomycin trough yesterday was 19.4. Carotid artery ultrasound shows moderate plaque in the right internal carotid artery with around 50% to 55% s tenosis, otherwise unremarkable. Assessment: Mr. Matamoros is a 69-year-old patient with multiple strokes in the anterior and posterior circulations bilaterally suggestive of a cardioembolic source. He may require stronger anticoagulat ion at the current, but his platelets are low and that should be addressed. Once he is able to, he m ay benefit from Eliquis 5 mg twice daily and then cardiac monitoring to rule out the presence of a ca rdiac arrhythmia such as atrial fibrillation. Aggressive management of his comorbid conditions including potential infection from osteomyelitis, es pecially if there is a transference of the blood. LB/MODL Voice ID: [id number] Report ID: [id number]
[2020-11-24 04:52] LABS: Hematocrit 26.7 % (39.6-49.0); MPV 10.1 fL (7.6-11.3); RBC Red Blood Cell Count 3.23 M/uL (4.33-5.43)
[2020-11-24 05:02] LABS: Potassium 3.8 mmol/L (3.5-5.1)
[2020-11-24] MEDS: METOPROLOL TAR 25 MG TAB PO SCH ×2 (06:19→17:07)
[2020-11-24 07:01] LABS: Albumin 2.2 g/dL (3.4-5.0); Bilirubin Direct 0.3 mg/dL (0-0.2); Bilirubin Total 0.6 mg/dL (0.2-1.0); Protein, Total 5.4 g/dL (6.4-8.2)
[2020-11-24 07:25] LABS: Protime INR 0.97
[2020-11-24] MEDS: INSULIN -REGULAR HUMAN 50 UNIT/0.5 ML ML SQ SCH ×4 (07:30→21:00)
--- NOTE | 2020-11-24 08:27 | P.PN ---
Date of Service: 11/24/20 Vital Signs Temp Pulse Resp BP Pulse Ox 97.2 F 146 H 20 146/80 H 98 11/24/20 04:00 11/24/20 06:19 11/24/20 04:00 11/24/20 04:00 11/24/20 04:00 Medications Albuterol Sulfate (Albuterol 2.5 Mg/3 Ml Neb Lorena) 2.5 mg NEB Q6HP PRN PRN Reason: SHORTNESS OF BREATH Amlodipine Besylate (Amlodipine 5 Mg Tab) 10 mg PO DAILY [facility] Last Admin: 11/23/20 08:11 Dose: 10 mg Documented by: Benzonatate (Benzonatate 100 Mg Cap) 100 mg PO TID PRN PRN Reason: COUGH Last Admin: 11/09/20 22:07 Dose: 100 mg Documented by: Calcitriol (Calcitrol 0.25 Mcg Cap) 0.5 mcg PO DAILY [facility] Last Admin: 11/23/20 08:10 Dose: 0.5 mcg Documented by: Cholecalciferol (Vitamin D 5,000 Unit Cap) 5,000 unit PO DAILY [facility] Last Admin: 11/23/20 08:10 Dose: 5,000 unit Documented by: Collagenase (Collagenase 30 Gm Ointment) 0 appl TOP DAILY [facility] Last Admin: 11/23/20 08:29 Dose: 1 ea Documented by: Dextrose (D50w 25 Gm/50 Ml Vial) 12.5 gm IV PRN PRN; Protocol PRN Reason: HYPOGLYCEMIA Enteral Nutritional Formula (Ensure Pudding 4 Oz Cup) 4 oz PO BID* [facility] Last Admin: 11/23/20 14:00 Dose: Not Given Documented by: Enteral Nutritional Formula (Glucerna Shake 237 Ml Can) 237 ml PO BID [facility] Last Admin: 11/23/20 21:00 Dose: 237 ml Documented by: Famotidine (Famotidine 20 Mg/2 Ml Vial) 20 mg IV DAILY [facility]; Protocol Last Admin: 11/23/20 08:11 Dose: 20 mg Documented by: Glucagon (Glucagon 1 Mg/Vial) 1 mg IM 1X PRN; Protocol PRN Reason: HYPOGLYCEMIA Hydralazine HCl (Hydralazine Hcl 20 Mg/Ml Vial) 5 mg IV Q6HP PRN PRN Reason: FOR SBP>160 OR DBP>100 [facility] Last Admin: 11/17/20 00:30 Dose: 5 mg Documented by: Hydralazine HCl (Hydralazine Hcl 25 Mg Tablet) 100 mg PO TID [facility] Last Admin: 11/23/20 21:00 Dose: Not Given Documented by: Levofloxacin/Dextrose (Levaquin 250mg/50 Ml Ivpb) 250 mg in 50 mls @ 50 mls/hr IV Q48H [facility]; Protocol Last Admin: 11/23/20 08:00 Dose: 50 mls Documented by: Ferric Sodium Gluconate Complex 125 mg/ Sodium Chloride 260 mls @ 130 mls/hr IV Q24H [facility] Stop: 11/27/20 13:59 Last Admin: 11/23/20 11:52 Dose: 260 mls Documented by: Insulin Human Regular (Insulin -Regular Human 50 Unit/0.5 Ml Ml) 0 unit SQ ACHS [facility]; Protocol Last Admin: 11/23/20 21:00 Dose: Not Given Documented by: Lactobacillus Acidoph/Bulgaricus (Lactobacillus/Acidophilus Tab) 1 tab PO TID [facility] Last Admin: 11/23/20 21:26 Dose: 1 tab Documented by: Melatonin (Melatonin 5 Mg Tablet) 10 mg PO BEDTIME PRN PRN PRN Reason: insommnia Last Admin: 11/15/20 22:22 Dose: 10 mg Documented by: Metoprolol Tartrate (Metoprolol Tar 25 Mg Tab) 50 mg PO BID 6AM 6PM [facility] Last Admin: 11/24/20 06:19 Dose: 50 mg Documented by: Ondansetron HCl (Ondansetron 4 Mg/2 Ml Vial) 4 mg IV Q6HP PRN PRN Reason: NAUSEA / VOMITING Last Admin: 11/21/20 19:53 Dose: 4 mg Documented by: Potassium Chloride (Potassium Cl Sa 10 Meq Tab) 20 meq PO 1X ONE Stop: 11/24/20 09:01 Sodium Chloride (Flush Normal Saline 10 Ml) 10 ml IV BID [facility] Last Admin: 11/23/20 21:00 Dose: 10 ml Documented by: Sodium Chloride (Sodium Chloride 0.9% 10ml Inj) 10 ml IV UD PRN PRN Reason: Diluant Last Admin: 11/14/20 20:25 Dose: 10 ml Documented by: Microbiology Results 11/06/20 19:37 Blood - Blood Aerobic Blood Culture - Final No growth in 5 days. 11/06/20 19:37 Blood - Blood Anaerobic Blood Culture - Final No growth in 5 days. 11/06/20 19:46 Blood - Blood Aerobic Blood Culture - Final No growth in 5 days. 11/06/20 19:46 Blood - Blood Anaerobic Blood Culture - Final No growth in 5 days. Assessment/ Plan: Nephrology/ ICU CPS stable without CP or SOB Hypoxia into the 80s overnight. Vitals, medications, blood work and imaging reviewed in the chart. NAD. MMM. Neck supple. BL Rales. RRR. Soft Abd. No C/C/E. No rash. AAO. Normal Speech. Left BKA. A/P: Continue the current POC and Medications other than the changes listed. AM Labs PRN. Recommend daily weight. Please see the orders for complete details. CALDERON likely due hypovolemia CKD III -No NSAIDs Hypernatremia -Encourage hydration Hyperkalemia/ Hypokalemia -Replete potassium prn Acidosis Hypocalcemia -Continue Vitamin D HTN with tachycardia -Continue Metoprolol 25mg BID -Continue Amlodipine -Continue Hydralazine 100 TID Moderate malnutrition Dysphagia -Encourage nutrition Anemia in chronic illness Iron deficiency Thrombocytopenia -PRBC transfusion PRN -Continue IV iron -Consider H/O evaluation Osteomyelitis of tibia -Continue abx BL PNA with ARDS vs CHF Acute hypoxic resp failure -Continue Levaquin Case reviewed with Dr. Powell
[2020-11-24] MEDS: COLLAGENASE 30 GM OINTMENT TOP SCH (09:00)
[2020-11-24] MEDS ORDERED: POTASSIUM CL SA 10 MEQ TAB PO ONE (09:00)
[2020-11-24] MEDS: ENSURE PUDDING 4 OZ CUP PO SCH ×2 (09:00→14:00)
[2020-11-24] MEDS: LACTOBACILLUS/ACIDOPHILUS TAB PO SCH ×3 (09:00→22:15)
[2020-11-24] MEDS: GLUCERNA SHAKE 237 ML CAN PO SCH ×2 (09:00→21:00)
--- NOTE | 2020-11-24 09:43 | P.PN ---
Subjective Date of Service: 11/24/20 Chief Complaint: Resp failure Patient seen examined at bedside, patient was denied by insurance for transfer to [place]. Some confusion over and shunts approval, sees as per our social workers patient has been denied however family states that they have called the insurance who stated that they will approve transfer to [place] and pay for a total of 20 days. Following up on this with director of social media marketing. Review of Systems 10-point ROS is otherwise unremarkable Physical Examination - Vital Signs Temperature: 97.7 F Blood Pressure: 142/85 Pulse: 70 Respirations: 18 Pulse Ox (%): 98 - Studies Temp Pulse Resp BP Pulse Ox 97.7 F 70 18 142/85 H 98 11/24/20 08:00 11/24/20 08:00 11/24/20 08:00 11/24/20 08:00 11/24/20 08:00 Assessment And Plan - Plan General: Cachectic, Confused HEENT: Atraumatic, Normocephalic Neck: Supple, 2+ carotid pulse no bruit Respiratory: Bibasilar crackles Cardiovascular: No edema, Normal S1 S2 Capillary refill: <2 Seconds Gastrointestinal: Normal bowel sounds, Hypoactive Integumentary: Other (Extensive bruising to left neck and chest area. left collerbone fracture with swelling. Ulcer to left BKA stump.) Antibiotics: current Vancomycin tart: 11/19 stop: 12/12 Levaquin start: 11/09 stop: 12/12 DC: daptomycin start: 11/08 stop: 11/12 zyvox start: 11/12 stop: 11/19 Assessment: -osteomyelitis of left BKA stump -thrombocytopenia -bilateral multifocal pneumonia vs pulmonary edema -leukocytosis -diabetes type 2 -CKD stage 4 -chronic tobacco user -anemia Plan: -MRI from previous visit confirmed osteomyelitis left BKA stump. Patient on the antibiotic course of 6 weeks. Patient switched from vancomycin to daptomycin due to worsening kidney function. Patient had code blue on 11/12: Daptomycin switch to zyvox due to possible lung damage. Patient restarted on vancomycin on 11/19 with Zosyn discontinued due to thrombocytopenia. Due to worsening thrombocytopenia on vancomycin has been Dc. Weekly labs: CBC, CRP, BMP, vanc trough. Vanc trough goal of 15-20 -throbocytopenia: Zyvox discontinued on 11/19 due to worsening thrombocytopenia. Vancomycin Dc on 11/22. Platelet count continues to drop, recommend going through patient's medication list in seeing if patient is on any agents that can cause thrombocytopenia. Patient has no history of any bleeding disorders. Hit panel ordered, LFTs ordered, coags ordered, slide for pathology review ordered, hematology consulted. -chest x-ray and chest CT shows bilateral pulmonary opacities, pneumonia versus pulmonary edema. Continue current antibiotic treatments. Pulmonology following, sputum studies revealed normal respiratory simi. Patient weaned off oxygen tolerating room air. Repeat chest x-ray on 11/22 shows mild worsening of the bilateral pulmonary up a cities -leukocytosis: Resolved WBC now within normal range. Previous Increase in white blood cell count could be due to trauma patient experienced outpatient resulting in left collarbone fx and extensive bruising to the neck and upper extremity. -iron deficiency anemia: Maintain hemoglobin of at least 7.0 recommend transfusion hemoglobin drops below 7.0. Hemoglobin up trending, 10.3 on 11/15. -renally dose antibiotics due to CKD. Renal function shows improvement. -social work consultation ordered for transfer to [facility]: Initial request denies it. Peer to peer denied. Awaiting an appeal. -medical management per primary team -continue monitor CBC and BMP -continue to monitor for signs of infection Plan of care discussed with Dr. Payton Thank you for consultation Physician Review Additional Text: Physical Exam
[2020-11-24] MEDS: CALCITROL 0.25 MCG CAP PO SCH (09:58)
[2020-11-24] MEDS: HYDRALAZINE HCL 25 MG TABLET PO SCH ×3 (09:58→21:00)
[2020-11-24] MEDS: AMLODIPINE 5 MG TAB PO SCH (09:59)
[2020-11-24] MEDS: FAMOTIDINE 20 MG/2 ML VIAL IV SCH (09:59)
[2020-11-24] MEDS: VITAMIN D 5,000 UNIT CAP PO SCH (09:59)
[2020-11-24] MEDS: SOD FERRIC GLUC COMPLX/SUCROSE 125 MG in NA CHLORIDE 0.9% 250 ML IV SCH (11:50)
--- NOTE | 2020-11-24 15:20 | RAD REPORT ---
EXAM DESCRIPTION: Rhonda Single View11/24/2020 3:13 pm CLINICAL HISTORY: Shortness of breath COMPARISON: November 15, 2020 FINDINGS: Mild bilateral pulmonary opacities probably combination mild interstitial pulmonary edema superimposed over chronic changes. Heart is borderline enlarged. PICC line with its tip 1 centimeter into the right atrium
--- NOTE | 2020-11-24 16:05 | P.PN ---
Subjective Date of Service: 11/24/20 Chief Complaint: Resp failure Subjective: No new changes (overall doing about the same, requiring 2L NC since yesterday, desaturates slightly when sleeping overnight. platelets still dropping. no signs of bleeding. pt upset we have not heard about appeal for L TAC) Review of Systems 10-point ROS is otherwise unremarkable Physical Examination - Vital Signs Temperature: 97.4 F Blood Pressure: 128/65 Pulse: 68 Respirations: 19 Pulse Ox (%): 100 Assessment & Plan Physician Review Additional Text: Physical Exam General: Alert, In no apparent distress HEENT: Mucous membr. moist/pink, normal conjunctiva Neck: JVD not distended Respiratory: slight crackles at bases bilaterally Cardiovascular: no edema, Regular rate/rhythm, Normal S1 S2 Gastrointestinal: Soft and benign, Non-distended, No tenderness Musculoskeletal: s/p L BKA Integumentary: L BKA stump - small ~3cm wound, no erythema, no drainage Problem list Acute hypoxemic respiratory failure secondary to Pneumonia and pulmonary edema CALDERON on CKD 4 L clavicular fracture Left BKA stump ulcer, with acute osteomyelitis Diabetes mellitus, xdl-mflzlqc-vokaxksea HTN Chronic tobacco use Acute on Chronic anemia, iron deficiency and heme+ stool Hep C Hypernatremia Oral pharyngeal dysphagia. Acute respiratory failure resolved. needing minimal O2 supplementation Continue with Levaquin. Off zyvox and vanc due to concern for thrombocytopenia per ID. thrombocytopenia worsened ~4-5 days after initiation of zyvox Patient failed swallow evaluation twice. ST recommended pureed diet and honey thickened liquids, but patient is not eating much or drinking much due to the consistency of the food and water. Possible causes of the thrombocytopenia include liver disease vs zyvox, vs vanc. unlikely HIT - HIT panel sent, blood smear for path review Zyvox for left BKA osteomyelitis changed to vancomycin due to thrombocytopenia, but vanc discontinued due to continued thrombocytopenia CXR (11/22) mild worsening of b/l opacities, has been off lasix for several days, will repeat CXR today. received lasix + banana bag on 11/23 given ongoing thrombocytopenia, heme/onc has been consulted as well MRI of the brain done to evaluate dysphagia now reporting multiple foci of acute CVA. He is high risk for bleeding given thrombocytopenia. Neurology consulted - recommended Eliquis, however need to wait for thrombocyt openia to resolve given current high risk for bleeding family report significant h/o alcohol use Elevated troponin deemed secondary to CALDERON/CKD, hypoxia and anemia. Patient will need to f/u with water project manager for further planning/management of hepatitis-C. chronic iron deficiency anemia, s/p [address] Goldstein consulted - EGD done showing mild atrophic gastritis. Continue protonix. Hemoglobin has been stable. Received IV iron multiple ecchymosis and L clavicle highly suspicious for recent trauma prior to this admission, however family and patient deny any fall/trauma. unclear of the acuity of his fractured L clavicle. Ortho recommended no surgical treatment, continue medical management. Continue PT. SCD for DVT prophylaxis Dispo: Patient is appropriate for LTAC - he needs antibiotics, PT/rehab for speech given new CVA. Peer to peer review for LTAC placement done by Dr. Payton awaiting results from appeal Time Spent Managing Pts Care (In Minutes): 35
[2020-11-24] MEDS ORDERED: FUROSEMIDE 20 MG/ 2ML VIAL IV ONE (17:00)
[2020-11-24] MEDS: MELATONIN 5 MG TABLET PO PRN (22:15)
[2020-11-25] MEDS: METOPROLOL TAR 25 MG TAB PO SCH ×2 (05:58→17:19)
[2020-11-25 06:00] LABS: Absolute Lymphocytes (CBC) 0.6 K/uL (0.7-4.9); Basophils % 0.8 % (0-1.3); Lymphocytes % 8.9 % (15.3-44.8); MPV 10.2 fL (7.6-11.3); RBC Red Blood Cell Count 3.24 M/uL (4.33-5.43)
[2020-11-25 06:06] LABS: Albumin 2.1 g/dL (3.4-5.0); Magnesium 1.9 mg/dL (1.8-2.4); Phosphorus 2.5 mg/dL (2.5-4.9); Potassium 3.6 mmol/L (3.5-5.1)
[2020-11-25] MEDS ORDERED: POTASSIUM 25 MEQ EFFERV TAB PO ONE (06:15)
[2020-11-25] MEDS: INSULIN -REGULAR HUMAN 50 UNIT/0.5 ML ML SQ SCH ×4 (07:30→21:00)
[2020-11-25] MEDS: CALCITROL 0.25 MCG CAP PO SCH (08:43)
[2020-11-25] MEDS: LACTOBACILLUS/ACIDOPHILUS TAB PO SCH ×3 (08:43→21:07)
[2020-11-25] MEDS: VITAMIN D 5,000 UNIT CAP PO SCH (08:43)
[2020-11-25] MEDS: AMLODIPINE 5 MG TAB PO SCH (08:43)
[2020-11-25] MEDS: HYDRALAZINE HCL 25 MG TABLET PO SCH ×3 (08:44→21:00)
[2020-11-25] MEDS: Levofloxacin 250mg IV 250 MG/50 ML BAG IV SCH (08:44)
[2020-11-25] MEDS: GLUCERNA SHAKE 237 ML CAN PO SCH ×2 (08:45→21:00)
[2020-11-25] MEDS: FAMOTIDINE 20 MG/2 ML VIAL IV SCH (08:45)
[2020-11-25] MEDS: ENSURE PUDDING 4 OZ CUP PO SCH ×2 (08:45→13:40)
[2020-11-25] MEDS: COLLAGENASE 30 GM OINTMENT TOP SCH (08:45)
--- NOTE | 2020-11-25 10:21 | P.PN ---
Date of Service: 11/25/20 Vital Signs Temp Pulse Resp BP Pulse Ox 98 F 67 20 143/73 H 98 11/25/20 08:00 11/25/20 08:43 11/25/20 08:00 11/25/20 08:43 11/25/20 08:00 Medications Albuterol Sulfate (Albuterol 2.5 Mg/3 Ml Neb Lorena) 2.5 mg NEB Q6HP PRN PRN Reason: SHORTNESS OF BREATH Amlodipine Besylate (Amlodipine 5 Mg Tab) 10 mg PO DAILY [facility] Last Admin: 11/25/20 08:43 Dose: 10 mg Documented by: Benzonatate (Benzonatate 100 Mg Cap) 100 mg PO TID PRN PRN Reason: COUGH Last Admin: 11/09/20 22:07 Dose: 100 mg Documented by: Calcitriol (Calcitrol 0.25 Mcg Cap) 0.5 mcg PO DAILY [facility] Last Admin: 11/25/20 08:43 Dose: 0.5 mcg Documented by: Cholecalciferol (Vitamin D 5,000 Unit Cap) 5,000 unit PO DAILY [facility] Last Admin: 11/25/20 08:43 Dose: 5,000 unit Documented by: Collagenase (Collagenase 30 Gm Ointment) 0 appl TOP DAILY [facility] Last Admin: 11/25/20 08:45 Dose: 1 ea Documented by: Dextrose (D50w 25 Gm/50 Ml Vial) 12.5 gm IV PRN PRN; Protocol PRN Reason: HYPOGLYCEMIA Enteral Nutritional Formula (Ensure Pudding 4 Oz Cup) 4 oz PO BID* [facility] Last Admin: 11/25/20 08:45 Dose: Not Given Documented by: Enteral Nutritional Formula (Glucerna Shake 237 Ml Can) 237 ml PO BID [facility] Last Admin: 11/25/20 08:45 Dose: Not Given Documented by: Famotidine (Famotidine 20 Mg/2 Ml Vial) 20 mg IV DAILY [facility]; Protocol Last Admin: 11/25/20 08:45 Dose: 20 mg Documented by: Glucagon (Glucagon 1 Mg/Vial) 1 mg IM 1X PRN; Protocol PRN Reason: HYPOGLYCEMIA Hydralazine HCl (Hydralazine Hcl 20 Mg/Ml Vial) 5 mg IV Q6HP PRN PRN Reason: FOR SBP>160 OR DBP>100 [facility] Last Admin: 11/17/20 00:30 Dose: 5 mg Documented by: Hydralazine HCl (Hydralazine Hcl 25 Mg Tablet) 100 mg PO TID [facility] Last Admin: 11/25/20 08:44 Dose: 100 mg Documented by: Levofloxacin/Dextrose (Levaquin 250mg/50 Ml Ivpb) 250 mg in 50 mls @ 50 mls/hr IV Q48H [facility]; Protocol Last Admin: 11/25/20 08:44 Dose: 50 mls Documented by: Ferric Sodium Gluconate Complex 125 mg/ Sodium Chloride 260 mls @ 130 mls/hr IV Q24H [facility] Stop: 11/27/20 13:59 Last Admin: 11/24/20 11:50 Dose: 260 mls Documented by: Insulin Human Regular (Insulin -Regular Human 50 Unit/0.5 Ml Ml) 0 unit SQ ACHS [facility]; Protocol Last Admin: 11/25/20 07:30 Dose: Not Given Documented by: Lactobacillus Acidoph/Bulgaricus (Lactobacillus/Acidophilus Tab) 1 tab PO TID [facility] Last Admin: 11/25/20 08:43 Dose: 1 tab Documented by: Melatonin (Melatonin 5 Mg Tablet) 10 mg PO BEDTIME PRN PRN PRN Reason: insommnia Last Admin: 11/24/20 22:15 Dose: 10 mg Documented by: Metoprolol Tartrate (Metoprolol Tar 25 Mg Tab) 50 mg PO BID 6AM 6PM [facility] Last Admin: 11/25/20 05:58 Dose: 50 mg Documented by: Ondansetron HCl (Ondansetron 4 Mg/2 Ml Vial) 4 mg IV Q6HP PRN PRN Reason: NAUSEA / VOMITING Last Admin: 11/21/20 19:53 Dose: 4 mg Documented by: Sodium Chloride (Flush Normal Saline 10 Ml) 10 ml IV BID [facility] Last Admin: 11/25/20 08:45 Dose: 10 ml Documented by: Sodium Chloride (Sodium Chloride 0.9% 10ml Inj) 10 ml IV UD PRN PRN Reason: Diluant Last Admin: 11/14/20 20:25 Dose: 10 ml Documented by: Microbiology Results 11/06/20 19:37 Blood - Blood Aerobic Blood Culture - Final No growth in 5 days. 11/06/20 19:37 Blood - Blood Anaerobic Blood Culture - Final No growth in 5 days. 11/06/20 19:46 Blood - Blood Aerobic Blood Culture - Final No growth in 5 days. 11/06/20 19:46 Blood - Blood Anaerobic Blood Culture - Final No growth in 5 days. Assessment/ Plan: Nephrology/ ICU CPS stable without CP or SOB Appetite improving No acute events overnight. Vitals, medications, blood work and imaging reviewed in the chart. NAD. MMM. Neck supple. BL Rales. RRR. Soft Abd. No C/C/E. No rash. AAO. Normal Speech. Left BKA. A/P: Continue the current POC and Medications other than the changes listed. AM Labs PRN. Recommend daily weight. Please see the orders for complete details. CALDERON likely due hypovolemia CKD III -No NSAIDs Hypernatremia -Encourage hydration Hyperkalemia/ Hypokalemia -Replete potassium prn Acidosis Hypocalcemia -Continue Vitamin D HTN with tachycardia -Continue Metoprolol 25mg BID -Continue Amlodipine -Continue Hydralazine 100 TID Diastolic CHF -Low sodium diet -Lasix prn Moderate malnutrition Dysphagia -Encourage nutrition Anemia in chronic illness Iron deficiency Thrombocytopenia -PRBC transfusion PRN -Continue IV iron -Consider H/O evaluation Osteomyelitis of tibia -Continue abx BL PNA with ARDS vs CHF Acute hypoxic resp failure -Continue Levaquin Case reviewed with Dr. Powell
[2020-11-25] MEDS: SOD FERRIC GLUC COMPLX/SUCROSE 125 MG in NA CHLORIDE 0.9% 250 ML IV SCH (11:34)
--- NOTE | 2020-11-25 16:49 | P.PN ---
Subjective Date of Service: 11/25/20 Chief Complaint: Resp failure Subjective: No new changes (no acute events overnight. pt reports breathing "good", no other complaints other than wanting to go to LTACH and out of the hospital. Reports eating/swallowing better as well, wanting his diet to be ad vanced if possible) Review of Systems 10-point ROS is otherwise unremarkable Physical Examination - Vital Signs Temperature: 97.6 F Blood Pressure: 134/71 Pulse: 68 Respirations: 20 Pulse Ox (%): 96 Assessment & Plan Physician Review Additional Text: Physical Exam General: Alert, In no apparent distress HEENT: Mucous membr. moist/pink, normal conjunctiva Neck: JVD not distended Respiratory: clear to auscultation bilaterally, nonlabored on 2L NC Cardiovascular: no edema, Regular rate/rhythm, Normal S1 S2 Gastrointestinal: Soft and benign, Non-distended, No tenderness Musculoskeletal: s/p L BKA Integumentary: L BKA stump - small ~3cm wound, no erythema, no drainage Problem list Acute hypoxemic respiratory failure secondary to Pneumonia and pulmonary edema CALDERON on CKD 4 L clavicular fracture Left BKA stump ulcer, with acute osteomyelitis Diabetes mellitus, [id number] HTN Chronic tobacco use Acute on Chronic anemia, iron deficiency and heme+ stool Hep C Hypernatremia Oral pharyngeal dysphagia. Acute respiratory failure resolved. needing minimal O2 supplementation. Continue with Levaquin. Off zyvox and vanc due to concern for thrombocytopenia per ID. thrombocytopenia worsened ~4-5 days after initiation of zyvox Patient failed swallow evaluation twice. ST recommended pureed diet and honey thickened liquids, but patient is not eating much or drinking much due to the consistency of the food and water. He has been eating food brought by family members and feels his swallowing has improved Speech therapist to come by today for re-eval Possible causes of the thrombocytopenia include liver disease vs zyvox, vs vanc. unlikely HIT - HIT panel sent given ongoing thrombocytopenia, heme/onc has been consulted as well - feel it is likely due to sepsis/cirrhosis, possible antibiotic usage, expect for it to slowly improve due to comorbidities/sepsis MRI of the brain done to evaluate dysphagia now reporting multiple foci of acute CVA. He is high risk for bleeding given thrombocytopenia. Neurology consulted - recommended Eliquis, however need to wait for thrombocytopenia to resolve given current high risk for bleeding family report significant h/o alcohol use Elevated troponin deemed secondary to CALDERON/CKD, hypoxia and anemia. Patient will need to f/u with manager transplant for further planning/management of hepatitis-C. Chronic iron deficiency anemia, s/p [address] Goldstein consulted - EGD done showing mild atrophic gastritis. Continue protonix. Hemo globin has been fairly stable. Receiving IV iron multiple ecchymosis (improving) and L clavicle highly suspicious for recent trauma prior to this admission, however family and patient deny any fall/trauma. unclear of the acuity of his fractured L clavicle. Ortho recommended no surgical treatment, continue medical management. Continue PT. SCD for DVT prophylaxis Dispo: Patient is appropriate for LTAC - he needs antibiotics, PT/rehab for speech given new CVA. Peer to peer review for LTAC placement done by Dr. Payton, denied, but has been appealed awaiting results from appeal Time Spent Managing Pts Care (In Minutes): 40
[2020-11-26 05:11] LABS: Hematocrit 26.8 % (39.6-49.0); MPV 9.4 fL (7.6-11.3); RBC Red Blood Cell Count 3.23 M/uL (4.33-5.43)
[2020-11-26 05:28] LABS: Albumin 2.1 g/dL (3.4-5.0); Magnesium 1.9 mg/dL (1.8-2.4); Phosphorus 2.3 mg/dL (2.5-4.9); Potassium 3.7 mmol/L (3.5-5.1)
[2020-11-26] MEDS: METOPROLOL TAR 25 MG TAB PO SCH ×2 (06:14→18:00)
[2020-11-26] MEDS: INSULIN -REGULAR HUMAN 50 UNIT/0.5 ML ML SQ SCH ×4 (07:30→21:00)
[2020-11-26] MEDS ORDERED: POTASSIUM CL SA 10 MEQ TAB PO ONE (09:00)
[2020-11-26] MEDS: GLUCERNA SHAKE 237 ML CAN PO SCH ×2 (09:00→21:00)
[2020-11-26] MEDS: ENSURE PUDDING 4 OZ CUP PO SCH ×2 (09:00→13:02)
[2020-11-26] MEDS: FAMOTIDINE 20 MG/2 ML VIAL IV SCH (09:51)
[2020-11-26] MEDS: CALCITROL 0.25 MCG CAP PO SCH (09:51)
[2020-11-26] MEDS: LACTOBACILLUS/ACIDOPHILUS TAB PO SCH ×3 (09:51→21:20)
[2020-11-26] MEDS: AMLODIPINE 5 MG TAB PO SCH (09:52)
[2020-11-26] MEDS: HYDRALAZINE HCL 25 MG TABLET PO SCH ×3 (09:52→21:00)
[2020-11-26] MEDS: VITAMIN D 5,000 UNIT CAP PO SCH (09:52)
[2020-11-26] MEDS: COLLAGENASE 30 GM OINTMENT TOP SCH (09:53)
--- NOTE | 2020-11-26 10:33 | P.PN ---
Subjective Date of Service: 11/26/20 Chief Complaint: Resp failure Patient seen examined at bedside, follows no acute complaints. Tolerating antibiotics well. Platelet up trending today are at 48. Review of Systems 10-point ROS is otherwise unremarkable Physical Examination - Vital Signs Temperature: 97.9 F Blood Pressure: 141/67 Pulse: 69 Respirations: 17 Pulse Ox (%): 99 - Studies Temp Pulse Resp BP Pulse Ox 97.9 F 69 17 141/67 H 99 11/26/20 08:00 11/26/20 09:52 11/26/20 08:00 11/26/20 09:52 11/26/20 08:00 Laboratory Last Values WBC 12.30 K/uL (4.3-10.9) H D 11/06/20 18:24 RBC 2.59 M/uL (4.33-5.43) L 11/06/20 18:24 Hgb 7.1 g/dL (13.6-17.9) L* 11/06/20 18:24 Hct 22.0 % (39.6-49.0) L 11/06/20 18:24 MCV 85.2 fL (80-100) D 11/06/20 18:24 MCH 27.4 pg (27.0-35.0) 11/06/20 18:24 MCHC 32.1 g/dL (32.0-36.0) 11/06/20 18:24 RDW 15.3 % (12.1-15.2) H 11/06/20 18:24 Plt Count 178 K/uL (152-406) D 11/06/20 18:24 MPV 9.4 fL (7.6-11.3) 11/06/20 18:24 Neutrophils % 81.8 % (41.7-73.7) H 11/06/20 18:24 Lymphocytes % 9.1 % (15.3-44.8) L 11/06/20 18:24 Monocytes % 8.7 % (3.3-12.3) 11/06/20 18:24 Eosinophils % 0.1 % (0-4.4) 11/06/20 18:24 Basophils % 0.3 % (0-1.3) 11/06/20 18:24 Absolute Neutrophils 10.0 K/uL (1.8-8.0) H 11/06/20 18:24 Absolute Lymphocytes 1.1 K/uL (0.7-4.9) 11/06/20 18:24 Absolute Monocytes 1.1 K/uL (0.1-1.3) 11/06/20 18:24 Absolute Eosinophils 0.0 K/uL (0-0.5) 11/06/20 18:24 Absolute Basophils 0.0 K/uL (0-0.5) 11/06/20 18:24 PT 12.5 SECONDS (9.5-12.5) 11/06/20 18:24 INR 1.09 11/06/20 18:24 APTT 28.2 SECONDS (24.3-36.9) 11/06/20 18:24 pH 7.36 (7.35-7.45) 11/06/20 18:39 pCO2 34.6 mmHG (35-45) L 11/06/20 18:39 pO2 59.1 mmHG (75-100) L 11/06/20 18:39 HCO3 19.1 mmol/L (22-28) L 11/06/20 18:39 Base Excess -5.3 mmol/L 11/06/20 18:39 Oxyhemoglobin 83.5 % (94-97) L 11/06/20 18:39 ABG O2 Sat (Measured) 86.3 % (92-98.5) L 11/06/20 18:39 ABG Carboxyhemoglobin 2.0 % (0-1.5) H 11/06/20 18:39 ABG Methemoglobin 1.2 % (0-1.5) 11/06/20 18:39 Other Total Hgb 7.2 g/dl (12-18) L 11/06/20 18:39 Inspired O2 40.0 % 11/06/20 18:39 Sodium 139 mmol/L (136-145) 11/06/20 18:24 Potassium 5.4 mmol/L (3.5-5.1) H 11/06/20 18:24 Chloride 108 mmol/L (98-107) H 11/06/20 18:24 Carbon Dioxide 20 mmol/L (21-32) L 11/06/20 18:24 BUN 67 mg/dL (7-18) H D 11/06/20 18:24 Creatinine 3.18 mg/dL (0.55-1.3) H D 11/06/20 18:24 Estimated GFR 20 mL/min (=/>90) L 11/06/20 18:24 Glucose 179 mg/dL (74-106) H 11/06/20 18:24 Lactic Acid 2.0 mmol/L (0.4-2.0) 11/06/20 19:46 Calcium 8.9 mg/dL (8.5-10.1) 11/06/20 18:24 Magnesium 2.4 mg/dL (1.8-2.4) 11/06/20 18:24 Total Bilirubin 0.6 mg/dL (0.2-1.0) 11/06/20 18:24 Direct Bilirubin 0.3 mg/dL (0-0.2) H 11/06/20 18:24 AST 140 U/L (15-37) H D 11/06/20 18:24 ALT 70 U/L (12-78) 11/06/20 18:24 Alkaline Phosphatase 172 U/L (45-117) H 11/06/20 18:24 Troponin I 1.13 ng/mL (0.0-0.045) H* 11/06/20 18:24 NT-Pro-B Natriuret Pep 09762 pg/mL (<125) H 11/06/20 18:24 Serum Total Protein 7.3 g/dL (6.4-8.2) 11/06/20 18:24 Albumin 2.5 g/dL (3.4-5.0) L 11/06/20 18:24 Globulin 4.8 g/dL (2.3-3.5) H 11/06/20 18:24 Albumin/Globulin Ratio 0.5 (1.1-1.8) L 11/06/20 18:24 Lipase 89 U/L (73-393) 11/06/20 18:24 Procalcitonin 0.25 ng/mL (<0.050) H 11/06/20 19:46 Vancomycin Trough 11.3 ug/mL (5.0-20.0) 11/06/20 18:24 Influenza Type A RNA Negative (NEGATIVE) 11/06/20 18:24 Influenza Type B RNA Negative (NEGATIVE) 11/06/20 18:24 SARS-CoV-2 RNA (RT-PCR) Negative (NEGATIVE) 11/06/20 18:24 ABO/Rh B POSITIVE 11/06/20 19:46 Solid Phase Ab Screen Negative 11/06/20 19:46 Crossmatch See Detail 11/06/20 19:46 Assessment And Plan - Plan General: Cachectic, Confused HEENT: Atraumatic, Normocephalic Neck: Supple, 2+ carotid pulse no bruit Respiratory: Bibasilar crackles Cardiovascular: No edema, Normal S1 S2 Capillary refill: <2 Seconds Gastrointestinal: Normal bowel sounds, Hypoactive Integumentary: Other (Extensive bruising to left neck and chest area. left collerbone fracture with swelling. Ulcer to left BKA stump.) Assessment: -osteomyelitis of left BKA stump -thrombocytopenia -bilateral multifocal pneumonia vs pulmonary edema -leukocytosis -diabetes type 2 -CKD stage 4 -chronic tobacco user -anemia Plan: -MRI from previous visit confirmed osteomyelitis left BKA stump. Patient on the antibiotic course of 6 weeks. Patient switched from vancomycin to daptomycin due to worsening kidney function. Patient had code blue on 11/12: Daptomycin switch to zyvox due to possible lung damage. Patient restarted on vancomycin on 11/19 with Zosyn discontinued due to thrombocytopenia. Due to worsening thrombo cytopenia vancomycin has been Dc. Patient currently on monotherapy with Levaquin. Weekly labs: CBC, CRP, BMP, vanc trough. Vanc trough goal of 15-20 -throbocytopenia: Zyvox discontinued on 11/19 due to worsening thrombocytopenia. Vancomycin Dc on 11/22. Platelet count continues to drop, recommend going through patient's medication list in seeing if patient is on any agents that can cause thrombocytopenia. Patient has no history of any bleeding disorders. Hit panel ordered, LFTs ordered, coags ordered, slide for pathology review ordered, hematology consulted. -chest x-ray and chest CT shows bilateral pulmonary opacities, pneumonia versus pulmonary edema. Continue current antibiotic treatments. Pulmonology following, sputum studies revealed normal respiratory simi. Patient weaned off oxygen tolerating room air. Repeat chest x-ray on 11/22 shows mild worsening of the bilateral pulmonary up a cities -leukocytosis: Resolved WBC now within normal range. Previous Increase in white blood cell count could be due to trauma patient experienced outpatient resulting in left collarbone fx and extensive bruising to the neck and upper extremity. -iron deficiency anemia: Maintain hemoglobin of at least 7.0 recommend transfusion hemoglobin drops below 7.0. Hemoglobin up trending, 10.3 on 11/15. -renally dose antibiotics due to CKD. Renal function shows improvement. -social work consultation ordered for transfer to [facility]: Initial request denies it. Peer to peer denied. Awaiting an appeal. -medical management per primary team -continue monitor CBC and BMP -continue to monitor for signs of infection Plan of care discussed with Dr. Payton Thank you for consultation
[2020-11-26] MEDS: SOD FERRIC GLUC COMPLX/SUCROSE 125 MG in NA CHLORIDE 0.9% 250 ML IV SCH (11:57)
--- NOTE | 2020-11-26 18:32 | P.PN ---
Subjective Date of Service: 11/26/20 Chief Complaint: Resp failure Subjective: No new changes (patient reports doing well, breathing comfortably on 2L NC, awaiting to be transferred, no other complaints) Review of Systems 10-point ROS is otherwise unremarkable Physical Examination - Vital Signs Temperature: 97.7 F Blood Pressure: 94/55 Pulse: 76 Respirations: 17 Pulse Ox (%): 99 Assessment & Plan Physician Review Additional Text: Physical Exam General: Alert, In no apparent distress HEENT: Mucous membr. moist/pink, normal conjunctiva Neck: JVD not distended Respiratory: clear to auscultation bilaterally, nonlabored on 2L NC Cardiovascular: no edema, Regular rate/rhythm, Normal S1 S2 Gastrointestinal: Soft and benign, Non-distended, No tenderness Musculoskeletal: s/p L BKA Integumentary: L BKA stump with small healing wound (~3cm), no drainage, no surrounding erythema Problem list Acute hypoxemic respiratory failure secondary to Pneumonia and pulmonary edema CALDERON on CKD 4 L clavicular fracture Left BKA stump ulcer, with acute osteomyelitis Diabetes mellitus, [id number] HTN Chronic tobacco use Acute on Chronic anemia, iron deficiency and heme+ stool Hep C Hypernatremia Oral pharyngeal dysphagia. Acute respiratory failure resolved. needing minimal O2 supplementation. Continue with Levaquin. Off zyvox and vanc due to concern for thrombocytopenia per ID. thrombocytopenia worsened ~4-5 days after initiation of zyvox Initially failed swallow eval twice, doing much better now and was re-evaluated on 11/25, able to advance his diet Possible causes of the thrombocytopenia include liver disease vs zyvox, vs vanc. unlikely HIT - HIT panel sent given ongoing thrombocytopenia, heme/onc has been consulted as well - feel it is likely due to sepsis/cirrhosis, possible antibiotic usage, expect for it to slowly improve due to comorbidities/sepsis slowly improving MRI of the brain done to evaluate dysphagia now reporting multiple foci of acute CVA. He is high risk for bleeding given thrombocytopenia. Neurology consulted - recommended Eliquis, however need to wait for thrombocytopenia to resolve given current high risk for bleeding family report significant h/o alcohol use Elevated troponin deemed secondary to CALDERON/CKD, hypoxia and anemia. Patient will need to f/u with cyber workforce developer and manager for further planning/management of hepatitis-C. Chronic iron deficiency anemia, s/p [address] Goldstein consulted - EGD done showing mild atrophic gastritis. Continue protonix. Hemoglobin has been fairly stable. Receiving IV iron multiple ecchymosis (improving) and L clavicle highly suspicious for recent trauma prior to this admission, however family and patient deny any fall/trauma. unclear of the acuity of his fractured L clavicle. Ortho recommended no surgical treatment, continue medical management. Continue PT SCD for DVT prophylaxis Dispo: Patient is appropriate for LTAC - he needs antibiotics, PT/rehab for speech given new CVA. Peer to peer review for LTAC placement done by Dr. Payton, denied, but has been appealed awaiting results from appeal Time Spent Managing Pts Care (In Minutes): 35
--- NOTE | 2020-11-26 20:39 | P.PN ---
Date of Service: 11/26/20 Vital Signs Temp Pulse Resp BP Pulse Ox 97.3 F 75 18 126/60 99 11/26/20 20:00 11/26/20 20:00 11/26/20 20:00 11/26/20 20:00 11/26/20 20:00 Medications Albuterol Sulfate (Albuterol 2.5 Mg/3 Ml Neb Lorena) 2.5 mg NEB Q6HP PRN PRN Reason: SHORTNESS OF BREATH Amlodipine Besylate (Amlodipine 5 Mg Tab) 10 mg PO DAILY [facility] Last Admin: 11/26/20 09:52 Dose: 10 mg Documented by: Benzonatate (Benzonatate 100 Mg Cap) 100 mg PO TID PRN PRN Reason: COUGH Last Admin: 11/09/20 22:07 Dose: 100 mg Documented by: Calcitriol (Calcitrol 0.25 Mcg Cap) 0.5 mcg PO DAILY [facility] Last Admin: 11/26/20 09:51 Dose: 0.5 mcg Documented by: Cholecalciferol (Vitamin D 5,000 Unit Cap) 5,000 unit PO DAILY [facility] Last Admin: 11/26/20 09:52 Dose: 5,000 unit Documented by: Collagenase (Collagenase 30 Gm Ointment) 0 appl TOP DAILY [facility] Last Admin: 11/26/20 09:53 Dose: 1 ea Documented by: Dextrose (D50w 25 Gm/50 Ml Vial) 12.5 gm IV PRN PRN; Protocol PRN Reason: HYPOGLYCEMIA Enteral Nutritional Formula (Ensure Pudding 4 Oz Cup) 4 oz PO BID* [facility] Last Admin: 11/26/20 13:02 Dose: Not Given Documented by: Enteral Nutritional Formula (Glucerna Shake 237 Ml Can) 237 ml PO BID [facility] Last Admin: 11/26/20 09:00 Dose: Not Given Documented by: Famotidine (Famotidine 20 Mg/2 Ml Vial) 20 mg IV DAILY [facility]; Protocol Last Admin: 11/26/20 09:51 Dose: 20 mg Documented by: Glucagon (Glucagon 1 Mg/Vial) 1 mg IM 1X PRN; Protocol PRN Reason: HYPOGLYCEMIA Hydralazine HCl (Hydralazine Hcl 20 Mg/Ml Vial) 5 mg IV Q6HP PRN PRN Reason: FOR SBP>160 OR DBP>100 [facility] Last Admin: 11/17/20 00:30 Dose: 5 mg Documented by: Hydralazine HCl (Hydralazine Hcl 25 Mg Tablet) 100 mg PO TID [facility] Last Admin: 11/26/20 13:01 Dose: 100 mg Documented by: Levofloxacin/Dextrose (Levaquin 250mg/50 Ml Ivpb) 250 mg in 50 mls @ 50 mls/hr IV Q48H [facility]; Protocol Last Admin: 11/25/20 08:44 Dose: 50 mls Documented by: Ferric Sodium Gluconate Complex 125 mg/ Sodium Chloride 260 mls @ 130 mls/hr IV Q24H [facility] Stop: 11/27/20 13:59 Last Admin: 11/26/20 11:57 Dose: 260 mls Documented by: Insulin Human Regular (Insulin -Regular Human 50 Unit/0.5 Ml Ml) 0 unit SQ ACHS [facility]; Protocol Last Admin: 11/26/20 18:20 Dose: 3 unit Documented by: Lactobacillus Acidoph/Bulgaricus (Lactobacillus/Acidophilus Tab) 1 tab PO TID [facility] Last Admin: 11/26/20 13:02 Dose: 1 tab Documented by: Melatonin (Melatonin 5 Mg Tablet) 10 mg PO BEDTIME PRN PRN PRN Reason: insommnia Last Admin: 11/24/20 22:15 Dose: 10 mg Documented by: Metoprolol Tartrate (Metoprolol Tar 25 Mg Tab) 50 mg PO BID 6AM 6PM [facility] Last Admin: 11/26/20 18:00 Dose: Not Given Documented by: Ondansetron HCl (Ondansetron 4 Mg/2 Ml Vial) 4 mg IV Q6HP PRN PRN Reason: NAUSEA / VOMITING Last Admin: 11/21/20 19:53 Dose: 4 mg Documented by: Sodium Chloride (Flush Normal Saline 10 Ml) 10 ml IV BID [facility] Last Admin: 11/26/20 09:00 Dose: 10 ml Documented by: Sodium Chloride (Sodium Chloride 0.9% 10ml Inj) 10 ml IV UD PRN PRN Reason: Diluant Last Admin: 11/14/20 20:25 Dose: 10 ml Documented by: Microbiology Results 11/06/20 19:37 Blood - Blood Aerobic Blood Culture - Final No growth in 5 days. 11/06/20 19:37 Blood - Blood Anaerobic Blood Culture - Final No growth in 5 days. 11/06/20 19:46 Blood - Blood Aerobic Blood Culture - Final No growth in 5 days. 11/06/20 19:46 Blood - Blood Anaerobic Blood Culture - Final No growth in 5 days. Assessment/ Plan: Nephrology/ ICU CPS stable without CP or SOB Appetite improving No acute events overnight. Vitals, medications, blood work and imaging reviewed in the chart. NAD. MMM. Neck supple. BL Rales. RRR. Soft Abd. No C/C/E. No rash. AAO. Normal Speech. Left BKA. A/P: Continue the current POC and Medications other than the changes listed. AM Labs PRN. Recommend daily weight. Please see the orders for complete details. CALDERON likely due hypovolemia CKD III -No NSAIDs Hypernatremia -Encourage hydration Hyperkalemia/ Hypokalemia -Replete potassium prn Acidosis Hypocalcemia -Continue Vitamin D HypoPO4 -Replete PO4 HTN with tachycardia -Continue Metoprolol 25mg BID -Continue Amlodipine -Continue Hydralazine 100 TID Diastolic CHF -Low sodium diet -Lasix prn Moderate malnutrition Dysphagia -Encourage nutrition Anemia in chronic illness Iron deficiency Thrombocytopenia -PRBC transfusion PRN -Continue IV iron -Consider H/O evaluation Osteomyelitis of tibia -Continue abx BL PNA with ARDS vs CHF Acute hypoxic resp failure -Continue Levaquin
[2020-11-27 04:21] LABS: Hematocrit 27.4 % (39.6-49.0); MPV 9.8 fL (7.6-11.3)
[2020-11-27 04:31] LABS: Magnesium 2.2 mg/dL (1.8-2.4); Potassium 3.6 mmol/L (3.5-5.1)
[2020-11-27] MEDS: METOPROLOL TAR 25 MG TAB PO SCH ×2 (06:16→16:05)
[2020-11-27] MEDS: INSULIN -REGULAR HUMAN 50 UNIT/0.5 ML ML SQ SCH ×4 (07:30→20:32)
[2020-11-27] MEDS: Levofloxacin 250mg IV 250 MG/50 ML BAG IV SCH (08:51)
[2020-11-27] MEDS: VITAMIN D 5,000 UNIT CAP PO SCH (08:52)
[2020-11-27] MEDS: AMLODIPINE 5 MG TAB PO SCH (08:52)
[2020-11-27] MEDS: HYDRALAZINE HCL 25 MG TABLET PO SCH ×3 (08:52→20:28)
[2020-11-27] MEDS: ENSURE PUDDING 4 OZ CUP PO SCH ×2 (08:53→13:19)
[2020-11-27] MEDS: GLUCERNA SHAKE 237 ML CAN PO SCH ×2 (08:53→20:28)
[2020-11-27] MEDS: LACTOBACILLUS/ACIDOPHILUS TAB PO SCH ×3 (08:53→20:27)
[2020-11-27] MEDS: FAMOTIDINE 20 MG/2 ML VIAL IV SCH (08:53)
[2020-11-27] MEDS: CALCITROL 0.25 MCG CAP PO SCH (08:53)
[2020-11-27] MEDS: COLLAGENASE 30 GM OINTMENT TOP SCH (08:56)
[2020-11-27] MEDS ORDERED: POTASSIUM CL SA 10 MEQ TAB PO ONE (09:00)
--- NOTE | 2020-11-27 12:12 | P.PN ---
Subjective Date of Service: 11/27/20 Chief Complaint: Resp failure Subjective: No new changes (patient reports doing well, breathing comfortably on 1 L NC. denies cough,nausea/vomiting, tolerating p.o.. Still upset that he remains in the hospital and would like to be transferred to LTAC.) Physical Examination - Vital Signs Temperature: 97.6 F Blood Pressure: 141/65 Pulse: 71 Respirations: 18 Pulse Ox (%): 100 Assessment & Plan Physician Review Additional Text: Physical Exam General: Alert, In no apparent distress HEENT: Mucous membr. moist/pink, normal conjunctiva Respiratory: clear to auscultation bilaterally, nonlabored on 1L NC Cardiovascular: no edema, Regular rate/rhythm, Normal S1 S2 Gastrointestinal: Soft, Non-distended, No tenderness Musculoskeletal: s/p L BKA Integumentary: L BKA stump with small healing wound (~3cm), no drainage, no surrounding erythema Problem list Acute hypoxemic respiratory failure secondary to Pneumonia and pulmonary edema, resolved CALDERON on CKD 4 L clavicular fracture Left BKA stump ulcer, with acute osteomyelitis Diabetes mellitus 2, [id number] HTN Chronic tobacco use Acute on Chronic anemia, iron deficiency and heme+ stool Hep C Hypernatremia Oral pharyngeal dysphagia. Acute CVA Acute respiratory failure resolved. needing minimal O2 supplementation. Continue with Levaquin. Off zyvox and vanc due to concern for thrombocytopenia per ID. thrombocytopenia worsened ~4-5 days after initiation of zyvox Initially failed swallow eval twice, doing much better now and was re-evaluated on 11/25, able to advance his diet. Eating more Possible causes of the thrombocytopenia include liver disease vs zyvox, vs vanc. unlikely HIT - HIT panel sent given ongoing thrombocytopenia, heme/onc was consulted as well - feel it is likely due to sepsis/cirrhosis, possible antibiotic usage, expect for it to slowly improve due to comorbidities/sepsis continues to slowly improve MRI of the brain done to evaluate dysphagia - noted multiple foci of acute CVA. He is high risk for bleeding given thrombocytopenia. Neurology consulted - recommended Eliquis, however need to wait for thrombocytopenia to resolve given current high risk for bleeding Elevated troponin deemed secondary to CALDERON/CKD, hypoxia and anemia. Patient will need to f/u with firer portable boiler for further planning/management of hepatitis-C. Chronic iron deficiency anemia, s/p [address] Goldstein consulted - EGD done showing mild atrophic gastritis. Continue protonix. Hemoglobin has been fairly stable. Receiving IV iron multiple ecchymosis (improving) and L clavicle highly suspicious for recent trauma prior to this admission, however family and patient deny any fall/trauma. unclear of the acuity of his fractured L clavicle. Ortho recommended no surgical treatment, continue medical management. Continue PT, SCDs for DVT prophylaxis Dispo: Patient is appropriate for LTAC - he needs antibiotics, PT/rehab for speech given new CVA. Peer to peer review for LTAC placement done by Dr. Payton, denied, but has been appealed. awaiting results from appeal patient upset with how long this has been taking He is too weak, too many comorbidities with active issues going on to go home, needs IV antibiotics as well Time Spent Managing Pts Care (In Minutes): 40
[2020-11-27] MEDS: SOD FERRIC GLUC COMPLX/SUCROSE 125 MG in NA CHLORIDE 0.9% 250 ML IV SCH (12:47)
[2020-11-27] MEDS ORDERED: NA CHLORIDE 0.9% 250 ML ONE (14:33)
[2020-11-27] MEDS: MELATONIN 5 MG TABLET PO PRN (20:27)
[2020-11-28] MEDS: METOPROLOL TAR 25 MG TAB PO SCH ×2 (06:17→17:21)
[2020-11-28 06:23] LABS: Hematocrit 27.3 % (39.6-49.0); MPV 9.6 fL (7.6-11.3); RBC Red Blood Cell Count 3.26 M/uL (4.33-5.43)
[2020-11-28 06:38] LABS: Albumin 2.1 g/dL (3.4-5.0); Magnesium 1.8 mg/dL (1.8-2.4); Potassium 3.7 mmol/L (3.5-5.1)
[2020-11-28] MEDS: INSULIN -REGULAR HUMAN 50 UNIT/0.5 ML ML SQ SCH ×4 (07:30→20:48)
[2020-11-28] MEDS ORDERED: KCL 20 MEQ/100 mL IVPB 20 MEQ/100 ML BAG IV SCH (08:00)
[2020-11-28] MEDS ORDERED: POTASSIUM PHOS IN 0.9 % NACL 15 MMOL/250 ML BAG IV ONE (08:45)
[2020-11-28] MEDS: COLLAGENASE 30 GM OINTMENT TOP SCH (09:00)
[2020-11-28] MEDS ORDERED: MAGNESIUM SULFATE 1 gm IVPB 1 GM/100 ML BAG IV ONE (09:00)
[2020-11-28] MEDS: VITAMIN D 5,000 UNIT CAP PO SCH (09:00)
[2020-11-28] MEDS: ENSURE PUDDING 4 OZ CUP PO SCH ×2 (09:00→14:00)
[2020-11-28] MEDS: GLUCERNA SHAKE 237 ML CAN PO SCH ×2 (09:00→20:48)
[2020-11-28] MEDS: CALCITROL 0.25 MCG CAP PO SCH (09:00)
[2020-11-28] MEDS ORDERED: NA CHLORIDE 0.9% 250 ML ONE (09:22)
[2020-11-28] MEDS: AMLODIPINE 5 MG TAB PO SCH (09:36)
[2020-11-28] MEDS: LACTOBACILLUS/ACIDOPHILUS TAB PO SCH ×3 (09:37→20:48)
[2020-11-28] MEDS: HYDRALAZINE HCL 25 MG TABLET PO SCH ×3 (09:37→20:49)
[2020-11-28] MEDS: FAMOTIDINE 20 MG/2 ML VIAL IV SCH (09:38)
--- NOTE | 2020-11-28 10:23 | P.PN ---
Subjective Date of Service: 11/28/20 Chief Complaint: Resp failure Subjective: No new changes (patient without any new complaints today, breathing comfortably on room air, voiding without issure, reports tolerating diet without coughing/choking.) Review of Systems 10-point ROS is otherwise unremarkable Physical Examination - Vital Signs Temperature: 99.3 F Blood Pressure: 153/73 Pulse: 75 Respirations: 16 Pulse Ox (%): 96 Assessment & Plan Physician Review Additional Text: Physical Exam General: awake, alert, NAD HEENT: Mucous membr. moist/pink, normal conjunctiva Respiratory: clear to auscultation bilaterally, nonlabored on RA Cardiovascular: no edema, Regular rate/rhythm, Normal S1 S2 Gastrointestinal: Soft, Non-distended, No tenderness Musculoskeletal: s/p L BKA, no joint tenderness Integumentary: L BKA stump with small healing wound (~3cm), no drainage, no surrounding erythema Problem list Acute hypoxemic respiratory failure secondary to Pneumonia and pulmonary edema, resolved CALDERON on CKD 4, resolved L clavicular fracture Oropharyngeal dysphagia Acute CVA Left BKA stump ulcer, with acute osteomyelitis Diabetes mellitus 2, [id number] HTN Chronic tobacco use Acute on Chronic anemia, iron deficiency and heme+ stool Hep C Hypernatremia, resolved Acute respiratory failure resolved. needing minimal O2 supplementation intermittently Continue with Levaquin. Off zyvox and vanc due to concern for thrombocytopenia per ID. thrombocytopenia worsened ~4-5 days after initiation of zyvox heme/onc was consulted due to ongoing thrombocytopenia - agreed likely due to sepsis/cirrhosis, possible antibiotic usage, and expect for it to slowly improve due to these issues platelets now slowly improving, up to 70s Initially failed swallow eval twice, doing much better now and was re-evaluated on 11/25, able to advance his diet. Eating more / tolerating without aspiration MRI of the brain done to evaluate dysphagia - noted multiple foci of acute CVA. He is high risk for bleeding given thrombocytopenia. Neurology consulted - recommended Eliquis, however need to wait for thrombocytopenia to resolve given current high risk for bleeding Elevated troponin deemed secondary to CALDERON/CKD, hypoxia and anemia. Patient will need to f/u with heating unit installer for further planning/management of hepatitis-C. Chronic iron deficiency anemia, s/p [address] Triston amaya sulted - EGD done showing mild atrophic gastritis. Continue protonix. Hemoglobin has been fairly stable. Received IV iron multiple ecchymosis (improving) and L clavicle highly suspicious for recent trauma prior to this admission, however family and patient deny any fall/trauma. unclear of the acuity of his fractured L clavicle. Ortho recommended no surgical treatment, continue medical management. VTE: SCDs Diet: Mech soft, chopped meats, thin liquids, crushed meds Code: full Dispo: Patient is appropriate for LTAC - he needs antibiotics, PT/rehab for speech given new CVA. Peer to peer review for LTAC placement done by Dr. Payton, denied, but has been appealed. awaiting results from appeal patient upset with how long this has been taking He is too weak, too many comorbidities with active issues going on to go home, needs IV antibiotics as well Time Spent Managing Pts Care (In Minutes): 35
[2020-11-28] MEDS: MULTIVITAMIN TAB PO SCH (10:30)
[2020-11-28] MEDS: JUVEN PACKET PO SCH (20:48)
[2020-11-29] MEDS: METOPROLOL TAR 25 MG TAB PO SCH ×2 (05:59→17:10)
[2020-11-29 06:21] LABS: Hematocrit 27.7 % (39.6-49.0); MPV 8.9 fL (7.6-11.3); RBC Red Blood Cell Count 3.31 M/uL (4.33-5.43)
[2020-11-29 06:43] LABS: Albumin 2.1 g/dL (3.4-5.0); C-Reactive Protein 4.91 mg/L (<3.00); Phosphorus 2.7 mg/dL (2.5-4.9); Potassium 3.8 mmol/L (3.5-5.1)
[2020-11-29] MEDS: INSULIN -REGULAR HUMAN 50 UNIT/0.5 ML ML SQ SCH ×4 (07:30→20:30)
[2020-11-29] MEDS: VITAMIN D 5,000 UNIT CAP PO SCH (07:54)
[2020-11-29] MEDS: CALCITROL 0.25 MCG CAP PO SCH (07:54)
[2020-11-29] MEDS: COLLAGENASE 30 GM OINTMENT TOP SCH (09:00)
[2020-11-29] MEDS: JUVEN PACKET PO SCH ×3 (09:00→20:33)
[2020-11-29] MEDS: GLUCERNA SHAKE 237 ML CAN PO SCH ×2 (09:00→20:29)
--- NOTE | 2020-11-29 09:17 | P.PN ---
Subjective Date of Service: 11/29/20 Chief Complaint: Resp failure Patient seen examined at bedside, follows no acute complaints. Will complete antibiotic course on 12/12. Platelet up trending continue to monitor. Review of Systems 10-point ROS is otherwise unremarkable Physical Examination - Vital Signs Temperature: 97 F Blood Pressure: 125/90 Pulse: 71 Respirations: 17 Pulse Ox (%): 97 - Studies Temp Pulse Resp BP Pulse Ox 97 F 71 17 125/90 97 11/29/20 04:00 11/29/20 05:59 11/29/20 04:00 11/29/20 05:59 11/29/20 04:00 Active Medications Albuterol Sulfate (Albuterol 2.5 Mg/3 Ml Neb Lorena) 2.5 mg NEB Q6HP PRN PRN Reason: SHORTNESS OF BREATH Amlodipine Besylate (Amlodipine 5 Mg Tab) 10 mg PO DAILY [facility] Last Admin: 11/28/20 09:36 Dose: 10 mg Documented by: Benzonatate (Benzonatate 100 Mg Cap) 100 mg PO TID PRN PRN Reason: COUGH Last Admin: 11/09/20 22:07 Dose: 100 mg Documented by: Calcitriol (Calcitrol 0.25 Mcg Cap) 0.5 mcg PO DAILY [facility] Last Admin: 11/29/20 07:54 Dose: Not Given Documented by: Cholecalciferol (Vitamin D 5,000 Unit Cap) 5,000 unit PO DAILY [facility] Last Admin: 11/29/20 07:54 Dose: Not Given Documented by: Collagenase (Collagenase 30 Gm Ointment) 1 appl TOP DAILY [facility] Dextrose (D50w 25 Gm/50 Ml Vial) 12.5 gm IV PRN PRN; Protocol PRN Reason: HYPOGLYCEMIA Enteral Nutritional Formula (Glucerna Shake 237 Ml Can) 237 ml PO BID [facility] Last Admin: 11/28/20 20:48 Dose: Not Given Documented by: Famotidine (Famotidine 20 Mg/2 Ml Vial) 20 mg IV DAILY [facility]; Protocol Last Admin: 11/28/20 09:38 Dose: 20 mg Documented by: Glucagon (Glucagon 1 Mg/Vial) 1 mg IM 1X PRN; Protocol PRN Reason: HYPOGLYCEMIA Hydralazine HCl (Hydralazine Hcl 20 Mg/Ml Vial) 5 mg IV Q6HP PRN PRN Reason: FOR SBP>160 OR DBP>100 MMHG Last Admin: 11/17/20 00:30 Dose: 5 mg Documented by: Hydralazine HCl (Hydralazine Hcl 25 Mg Tablet) 100 mg PO TID [facility] Last Admin: 11/28/20 20:49 Dose: Not Given Documented by: Levofloxacin/Dextrose (Levaquin 250mg/50 Ml Ivpb) 250 mg in 50 mls @ 50 mls/hr IV Q48H [facility]; Protocol Last Admin: 11/27/20 08:51 Dose: 50 mls Documented by: Insulin Human Regular (Insulin -Regular Human 50 Unit/0.5 Ml Ml) 0 unit SQ ACHS [facility]; Protocol Last Admin: 11/29/20 07:30 Dose: Not Given Documented by: L-Arginine/L-Glutamine/HMB (Vel Packet) 1 pkt PO BID [facility] Last Admin: 11/28/20 20:48 Dose: Not Given Documented by: Lactobacillus Acidoph/Bulgaricus (Lactobacillus/Acidophilus Tab) 1 tab PO TID [facility] Last Admin: 11/28/20 20:48 Dose: 1 tab Documented by: Melatonin (Melatonin 5 Mg Tablet) 10 mg PO BEDTIME PRN PRN PRN Reason: insommnia Last Admin: 11/27/20 20:27 Dose: 10 mg Documented by: Metoprolol Tartrate (Metoprolol Tar 25 Mg Tab) 50 mg PO BID 6AM 6PM [facility] Last Admin: 11/29/20 05:59 Dose: 50 mg Documented by: Multivitamins/Minerals (Multivitamin Tab) 1 tab PO DAILY [facility] Last Admin: 11/28/20 10:30 Dose: Not Given Documented by: Ondansetron HCl (Ondansetron 4 Mg/2 Ml Vial) 4 mg IV Q6HP PRN PRN Reason: NAUSEA / VOMITING Last Admin: 11/21/20 19:53 Dose: 4 mg Documented by: Sodium Chloride (Flush Normal Saline 10 Ml) 10 ml IV BID [facility] Last Admin: 11/28/20 20:48 Dose: 10 ml Documented by: Sodium Chloride (Sodium Chloride 0.9% 10ml Inj) 10 ml IV UD PRN PRN Reason: Diluant Last Admin: 11/14/20 20:25 Dose: 10 ml Documented by: Assessment And Plan - Plan General: Cachectic, Confused HEENT: Atraumatic, Normocephalic Neck: Supple, 2+ carotid pulse no bruit Respiratory: Bibasilar crackles Cardiovascular: No edema, Normal S1 S2 Capillary refill: <2 Seconds Gastrointestinal: Normal bowel sounds, Hypoactive Integumentary: Other (Extensive bruising to left neck and chest area. left collerbone fracture with swelling. Ulcer to left BKA stump.) Assessment: -osteomyelitis of left BKA stump -thrombocytopenia -bilateral multifocal pneumonia vs pulmonary edema -leukocytosis -diabetes type 2 -CKD stage 4 -chronic tobacco user -anemia Plan: -MRI from previous visit confirmed osteomyelitis left BKA stump. Patient on the antibiotic course of 6 weeks. Patient switched from vancomycin to daptomycin due to worsening kidney function. Patient had code blue on 11/12: Daptomycin switch to zyvox due to possible lung damage. Patient restarted on vancomycin on 11/19 with Zosyn discontinued due to thrombocytopenia. Due to worsening thrombocytopenia vancomycin has been Dc. Patient currently on monotherapy with Levaquin. Weekly labs: CBC, CRP, BMP, vanc trough. Vanc trough goal of 15-20 -throbocytopenia: Zyvox discontinued on 11/19 due to worsening thrombocytopenia. Vancomycin Dc on 11/22. Platelet count continues to drop, recommend going through patient's medication list in seeing if patient is on any agents that can cause thrombocytopenia. Patient has no history of any bleeding disorders. Hit panel ordered, LFTs ordered, coags ordered, slide for pathology review ordered, hematology consulted. -chest x-ray and chest CT shows bilateral pulmonary opacities, pneumonia versus pulmonary edema. Continue current antibiotic treatments. Pulmonology following, sputum studies revealed normal respiratory simi. Patient weaned off oxygen tolerating room air. Repeat chest x-ray on 11/22 shows mild worsening of the bilateral pulmonary up a cities -leukocytosis: Resolved WBC now within normal range. Previous Increase in white blood cell count could be due to trauma patient experienced outpatient resulting in left collarbone fx and extensive bruising to the neck and upper extremity. -iron deficiency anemia: Maintain hemoglobin of at least 7.0 recommend transfusion hemoglobin drops below 7.0. Hemoglobin up trending, 10.3 on 11/15. -renally dose antibiotics due to CKD. Renal function shows improvement. -social work consultation ordered for transfer to [email or web address]: Initial request denies it. Peer to peer denied. Awaiting an appeal. -medical management per primary team -continue monitor CBC and BMP -continue to monitor for signs of infection Plan of care discussed with Dr. Payton Thank you for consultation
[2020-11-29] MEDS: HYDRALAZINE HCL 25 MG TABLET PO SCH ×3 (09:48→20:29)
[2020-11-29] MEDS: LACTOBACILLUS/ACIDOPHILUS TAB PO SCH ×3 (09:48→20:29)
[2020-11-29] MEDS: AMLODIPINE 5 MG TAB PO SCH (09:48)
[2020-11-29] MEDS: MULTIVITAMIN TAB PO SCH (09:48)
[2020-11-29] MEDS: Levofloxacin 250mg IV 250 MG/50 ML BAG IV SCH (09:48)
[2020-11-29] MEDS: FAMOTIDINE 20 MG/2 ML VIAL IV SCH (09:49)
--- NOTE | 2020-11-29 17:47 | P.PN ---
Subjective Date of Service: 11/29/20 Chief Complaint: Resp failure Subjective: No new changes (doing well, breathing comfortably on room, tolerating PO, worked with PT this morning. without complaints appeal for LTAC denied, patient and agreeable to SNF) Review of Systems 10-point ROS is otherwise unremarkable Physical Examination - Vital Signs Temperature: 98.6 F Blood Pressure: 114/59 Pulse: 75 Respirations: 16 Pulse Ox (%): 95 Assessment & Plan Physician Review Additional Text: Physical Exam General: awake, alert, NAD HEENT: normal conjunctiva Respiratory: clear to auscultation bilaterally, nonlabored on RA Cardiovascular: no edema, Regular rate/rhythm, Normal S1 S2 Gastrointestinal: Soft, Non-distended, No tenderness Musculoskeletal: s/p L BKA, no joint tenderness Integumentary: L BKA stump with small healing wound (~3cm), no drainage, no surrounding erythema Problem list Acute hypoxemic respiratory failure secondary to Pneumonia and pulmonary edema, resolved CALDERON on CKD 4, resolved L clavicular fracture Oropharyngeal dysphagia Acute CVA Left BKA stump ulcer, with acute osteomyelitis Diabetes mellitus 2, [id number] HTN Chronic tobacco use Acute on Chronic anemia, iron deficiency and heme+ stool Hep C Hypernatremia, resolved Acute respiratory failure resolved. stable on room air for a few days now Continue with Levaquin. Off zyvox and vanc due to concern for thrombocytopenia per ID. thrombocytopenia worsened ~4-5 days after initiation of zyvox heme/onc was consulted due to ongoing thrombocytopenia - agreed likely due to sepsis/cirrhosis, possible antibiotic usage, and expect for it to slowly improve due to these issues platelets now slowly improving, up to 80s Initially failed swallow eval twice, doing much better now and was re-evaluated on 11/25, able to advance his diet. Eating more / tolerating without aspiration MRI of the brain done to evaluate dysphagia - noted multiple foci of acute CVA. He is high risk for bleeding given thrombocytopenia. Neurology consulted - recommended Eliquis, however need to wait for thrombocytopenia to resolve given current risk for bleeding Chronic iron deficiency anemia, s/p [address] Goldstein consulted - EGD done showing mild atrophic gastritis. Continue protonix. Hemoglobin has been fairly stable. Received IV iron Elevated troponin deemed secondary to CALDERON/CKD, hypoxia and anemia. 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 multiple ecchymosis (improving) and L clavicle highly suspicious for recent trauma prior to this admission, however family and patient deny any fall/trauma. unclear of the acuity of his fractured L clavicle. Ortho recommended no surgical treatment, continue medical management. VTE: SCDs Diet: Mech soft, chopped meats, thin liquids, crushed meds Code: full Dispo: LTAC appeal denied, patient and agreeable to SNF, SW/CM consulted pt would benefit from further PT, monitoring, labs with thrombocytopenia and to start eliquis Time Spent Managing Pts Care (In Minutes): 35
--- NOTE | 2020-11-29 21:43 | P.PN ---
Date of Service: 11/29/20 Vital Signs Temp Pulse Resp BP Pulse Ox 98.6 F 75 16 114/59 L 95 11/29/20 17:47 11/29/20 17:47 11/29/20 17:47 11/29/20 17:47 11/29/20 17:47 Medications Albuterol Sulfate (Albuterol 2.5 Mg/3 Ml Neb Lorena) 2.5 mg NEB Q6HP PRN PRN Reason: SHORTNESS OF BREATH Amlodipine Besylate (Amlodipine 5 Mg Tab) 10 mg PO DAILY [facility] Last Admin: 11/29/20 09:48 Dose: 10 mg Documented by: Benzonatate (Benzonatate 100 Mg Cap) 100 mg PO TID PRN PRN Reason: COUGH Last Admin: 11/09/20 22:07 Dose: 100 mg Documented by: Calcitriol (Calcitrol 0.25 Mcg Cap) 0.5 mcg PO DAILY [facility] Last Admin: 11/29/20 07:54 Dose: Not Given Documented by: Cholecalciferol (Vitamin D 5,000 Unit Cap) 5,000 unit PO DAILY [facility] Last Admin: 11/29/20 07:54 Dose: Not Given Documented by: Collagenase (Collagenase 30 Gm Ointment) 1 appl TOP DAILY [facility] Last Admin: 11/29/20 09:00 Dose: 1 appl Documented by: Dextrose (D50w 25 Gm/50 Ml Vial) 12.5 gm IV PRN PRN; Protocol PRN Reason: HYPOGLYCEMIA Enteral Nutritional Formula (Glucerna Shake 237 Ml Can) 237 ml PO BID [facility] Last Admin: 11/29/20 20:29 Dose: 237 ml Documented by: Famotidine (Famotidine 20 Mg/2 Ml Vial) 20 mg IV DAILY [facility]; Protocol Last Admin: 11/29/20 09:49 Dose: 20 mg Documented by: Glucagon (Glucagon 1 Mg/Vial) 1 mg IM 1X PRN; Protocol PRN Reason: HYPOGLYCEMIA Hydralazine HCl (Hydralazine Hcl 20 Mg/Ml Vial) 5 mg IV Q6HP PRN PRN Reason: FOR SBP>160 OR DBP>100 [facility] Last Admin: 11/17/20 00:30 Dose: 5 mg Documented by: Hydralazine HCl (Hydralazine Hcl 25 Mg Tablet) 100 mg PO TID [facility] Last Admin: 11/29/20 20:29 Dose: Not Given Documented by: Levofloxacin/Dextrose (Levaquin 250mg/50 Ml Ivpb) 250 mg in 50 mls @ 50 mls/hr IV Q48H [facility]; Protocol Last Admin: 11/29/20 09:48 Dose: 50 mls Documented by: Insulin Human Regular (Insulin -Regular Human 50 Unit/0.5 Ml Ml) 0 unit SQ ACHS [facility]; Protocol Last Admin: 11/29/20 20:30 Dose: Not Given Documented by: L-Arginine/L-Glutamine/HMB (Vel Packet) 1 pkt PO BID [facility] Last Admin: 11/29/20 20:33 Dose: Not Given Documented by: Lactobacillus Acidoph/Bulgaricus (Lactobacillus/Acidophilus Tab) 1 tab PO TID [facility] Last Admin: 11/29/20 20:29 Dose: 1 tab Documented by: Melatonin (Melatonin 5 Mg Tablet) 10 mg PO BEDTIME PRN PRN PRN Reason: insommnia Last Admin: 11/27/20 20:27 Dose: 10 mg Documented by: Metoprolol Tartrate (Metoprolol Tar 25 Mg Tab) 50 mg PO BID 6AM 6PM [facility] Last Admin: 11/29/20 17:10 Dose: 50 mg Documented by: Multivitamins/Minerals (Multivitamin Tab) 1 tab PO DAILY [facility] Last Admin: 11/29/20 09:48 Dose: 1 tab Documented by: Ondansetron HCl (Ondansetron 4 Mg/2 Ml Vial) 4 mg IV Q6HP PRN PRN Reason: NAUSEA / VOMITING Last Admin: 11/21/20 19:53 Dose: 4 mg Documented by: Sodium Chloride (Flush Normal Saline 10 Ml) 10 ml IV BID [facility] Last Admin: 11/29/20 20:29 Dose: 10 ml Documented by: Sodium Chloride (Sodium Chloride 0.9% 10ml Inj) 10 ml IV UD PRN PRN Reason: Diluant Last Admin: 11/14/20 20:25 Dose: 10 ml Documented by: Microbiology Results 11/06/20 19:37 Blood - Blood Aerobic Blood Culture - Final No growth in 5 days. 11/06/20 19:37 Blood - Blood Anaerobic Blood Culture - Final No growth in 5 days. 11/06/20 19:46 Blood - Blood Aerobic Blood Culture - Final No growth in 5 days. 11/06/20 19:46 Blood - Blood Anaerobic Blood Culture - Final No growth in 5 days. Assessment/ Plan: Nephrology CPS stable without CP or SOB +Appetite No acute events overnight. Vitals, medications, blood work and imaging reviewed in the chart. NAD. MMM. Neck supple. CTA. RRR. Soft Abd. No C/C/E. No rash. AAO. Normal Speech. Left BKA. A/P: Continue the current POC and Medications other than the changes listed. AM Labs PRN. Recommend daily weight. Please see the orders for complete details. CALDERON likely due hypovolemia CKD III -No NSAIDs Hypernatremia -Encourage hydration Hyperkalemia/ Hypokalemia -Replete potassium prn Acidosis Hypocalcemia -Continue Vitamin D HypoPO4 -Replete PO4 HTN with tachycardia -Continue Metoprolol 25mg BID -Continue Amlodipine -Continue Hydralazine 100 TID Diastolic CHF -Low sodium diet -Lasix prn Moderate malnutrition Dysphagia -Encourage nutrition Anemia in chronic illness Iron deficiency Thrombocytopenia -PRBC transfusion PRN -Continue IV iron -Consider H/O evaluation Osteomyelitis of tibia -Continue abx BL PNA with ARDS vs CHF Acute hypoxic resp failure -Continue Levaquin
[2020-11-30] MEDS: METOPROLOL TAR 25 MG TAB PO SCH ×2 (05:07→17:15)
[2020-11-30 05:33] LABS: Hematocrit 26.2 % (39.6-49.0); MPV 8.5 fL (7.6-11.3); RBC Red Blood Cell Count 3.13 M/uL (4.33-5.43)
[2020-11-30 05:47] LABS: Phosphorus 2.4 mg/dL (2.5-4.9); Potassium 3.9 mmol/L (3.5-5.1)
[2020-11-30] MEDS: INSULIN -REGULAR HUMAN 50 UNIT/0.5 ML ML SQ SCH ×4 (07:30→20:34)
[2020-11-30] MEDS: COLLAGENASE 30 GM OINTMENT TOP SCH (08:40)
[2020-11-30] MEDS: HYDRALAZINE HCL 25 MG TABLET PO SCH ×3 (08:40→20:36)
[2020-11-30] MEDS: FAMOTIDINE 20 MG/2 ML VIAL IV SCH (08:40)
[2020-11-30] MEDS: LACTOBACILLUS/ACIDOPHILUS TAB PO SCH ×3 (08:41→20:36)
[2020-11-30] MEDS: CALCITROL 0.25 MCG CAP PO SCH (08:41)
[2020-11-30] MEDS: VITAMIN D 5,000 UNIT CAP PO SCH (08:41)
[2020-11-30] MEDS: AMLODIPINE 5 MG TAB PO SCH (08:41)
[2020-11-30] MEDS: POTASS/SODIUM PHOSPHATE 1 PKT POWD.PACK PO SCH ×3 (08:41→11:53)
[2020-11-30] MEDS: GLUCERNA SHAKE 237 ML CAN PO SCH ×2 (08:42→20:37)
[2020-11-30] MEDS: JUVEN PACKET PO SCH ×2 (08:42→20:37)
[2020-11-30] MEDS: MULTIVITAMIN TAB PO SCH (08:42)
[2020-11-30] MEDS ORDERED: POTASSIUM 25 MEQ EFFERV TAB PO ONE (09:00)
--- NOTE | 2020-11-30 11:50 | PN ---
Date of Progress Note: 11/30/2020 Subjective: The patient is alert, awake. His is by his bedside. He denies any complaints curr ently. He just states he wants to be out of the hospital to get some rehabilitation. My understandi ng is he has pending approval to go to the jail in the [facility]. He has our information to follow up with us for his chronic kidney disease and make appointment. Objective: Vital Signs: He currently is stable with blood pressure at about 138/69, pulse is 69, re spirations around 14-16, afebrile, O2 sats are 92% to 97% on room air. Lungs: Clear to auscultation. Abdomen: Soft. Extremities: Reveal no edema. Heart: Sounds are regular. Laboratory Data: Shows WBC of 5.1, hemoglobin 8.5, hematocrit 26.2, platelet count of 88. Chemistry shows sodium 139, potassium 3.9, chloride is 107, bicarb is 27, BUN and creatinine are 22 and 1.66, glucose is 92, calcium 7.4, phosphorus 2.4, albumin level is 2.0. Assessment And Plan: The patient with acute kidney injury/chronic kidney disease/malnutrition, has n ot been eating and drinking well. Heavy alcohol use in the past. Advised to keep balance diet, keanu cially as his breathing improves and his swelling improves further. He is going to need rehabilitati on. Physical and Speech Therapy to assist with improving his p.o. intake. Once his p.o. intake is i mproved, we can also supplement protein to help with that. Hypertension is reasonably controlled now . The patient is on metoprolol, amlodipine, and hydralazine. His diet will be a low-sodium once he is able to take better p.o. intake. At this point, awaiting discharge. Do not see any need for any aggressive hydration as the patient tolerating p.o. intake, but needs to be assessed on a periodic ba sis. No other information to contact for appointment for residual renal function evaluation once his acute issues are further resolved. His creatinine 1.66 is reasonably stable compared to yesterday. /MELY Voice ID: [id number] Report ID: [id number]
--- NOTE | 2020-11-30 16:01 | P.PN ---
Subjective Date of Service: 11/30/20 Chief Complaint: Resp failure Patient has no new complaint today. Patient tolerating solid diet. Oxygen saturation is stable on room air. Physical Examination - Vital Signs Temperature: 98.4 F Blood Pressure: 117/64 Pulse: 78 Respirations: 16 Pulse Ox (%): 92 - Physical Exam General: Alert, In no apparent distress, Oriented x3 HEENT: Mucous membr. moist/pink Respiratory: Clear to auscultation bilaterally, Normal air movement Cardiovascular: No edema, Regular rate/rhythm, Normal S1 S2 Gastrointestinal: Soft and benign, Non-distended, No tenderness Musculoskeletal: Other (Left BKA) Integumentary: Other (Healing wound at the tip of left BKA stump) Neurological: Other (No focal motor deficit.) Assessment And Plan - Current Problems (Diagnosis) (1) Pneumonia Current Visit: Yes Status: Acute (2) Pulmonary edema Current Visit: Yes Status: Acute (3) Anemia Current Visit: No Status: Acute Qualifiers: Anemia type: iron deficiency Iron deficiency anemia type: unspecified iron deficiency Qualified Code(s): D50.9 - Iron deficiency anemia, unspecified (4) Elevated troponin Current Visit: No Status: Acute (5) Acute worsening of stage 4 chronic kidney disease Current Visit: Yes Status: Acute (6) Osteomyelitis of tibia Current Visit: No Status: Acute (7) Pressure ulcer of BKA stump, stage 2 Current Visit: No Status: Resolved (8) Hypernatremia Current Visit: Yes Status: Acute (9) Acute CVA (cerebrovascular accident) Current Visit: Yes Status: Acute - Plan Patient with diffuse bilateral lung opacities needing oxygen. Pneumonia versus pulmonary edema. Procalcitonin only mildly elevated Cardiology input appreciated. Elevated troponin deemed secondary to renal insulin sensitive, hypoxia and anemia. Patient also has early or mild findings of liver cirrhosis elevated liver enzymes. This could be secondary to hepatic congestion heart failure. I favor pneumonia over pulmonary edema based on CT chest findings. Continue antibiotics. Nephrology input appreciated Status post 1 unit PRBC transfusion. Lasix discontinued. Serum creatinine trended down after albumin infusion. Titrate oxygen Infectious Disease consult. Continue IV Levaquin to cover pneumonia. Vancomycin changed to daptomycin due to concern for volume overload with vancomycin volume. Pain management as needed. Dr. Goldstein input appreciated. EGD done showing mild atrophic gastritis. Protonix. Monitor CBC and electrolytes Physician Review Additional Text: Problem list Acute hypoxemic respiratory failure secondary to Pneumonia and pulmonary edema, resolved CALDERON on CKD 4, resolved L clavicular fracture Oropharyngeal dysphagia Acute CVA Left BKA stump ulcer, with acute osteomyelitis Diabetes mellitus 2, [id number] HTN Chronic tobacco use Acute on Chronic anemia, iron deficiency and heme+ stool Hep C Hypernatremia, resolved Acute respiratory failure resolved. stable on room air. Continue with Levaquin. Off zyvox and vanc due to concern for thrombocytopenia per ID. thrombocytopenia worsened ~4-5 days after initiation of zyvox heme/onc was consulted due to ongoing thrombocytopenia - agreed likely due to sepsis/cirrhosis, possible antibiotic usage, and expect for it to slowly improve due to these issues platelets now slowly improving, up to 80s Initially failed swallow eval twice, doing much better now and was re-evaluated on 11/25, able to advance his diet. Eating more / tolerating without aspiration MRI of the brain done to evaluate dysphagia - noted multiple foci of acute CVA. He is high risk for bleeding given thrombocytopenia. Neurology consulted - recommended Eliquis, however need to wait for thrombocytopenia to resolve given current risk for bleeding(anemia requiring blood transfusion) Chronic iron deficiency anemia, s/p [address] Goldstein consulted - EGD done showing mild atrophic gastritis. Continue protonix. Hemoglobin has been fairly stable. He received IV iron Elevated troponin deemed secondary to CALDERON/CKD, hypoxia and anemia. Patient will need to f/u with client services specialist for further planning/management of hepatitis-C. multiple ecchymosis (improving) and L clavicle highly suspicious for recent trauma prior to this admission, however family and patient deny any fall/trauma. unclear of the acuity of his fractured L clavicle. Ortho recommended no surgical treatment, continue medical management. Patient waiting for SNF placement for rehab and IV antibiotics for osteomyelitis. SNF will also be beneficial for supervised environment when anticoagulation is initiated. VTE: SCDs Diet: Mech soft, chopped meats, thin liquids, crushed meds Code: full Dispo: LTAC appeal denied, patient and agreeable to SNF, SW/CM assisting SNF placement.
[2020-12-01] MEDS: METOPROLOL TAR 25 MG TAB PO SCH (05:22)
[2020-12-01 05:45] LABS: Absolute Lymphocytes (CBC) 1.6 K/uL (0.7-4.9); Basophils % 1.2 % (0-1.3); Hematocrit 24.7 % (39.6-49.0); Lymphocytes % 33.7 % (15.3-44.8); MPV 8.6 fL (7.6-11.3); RBC Red Blood Cell Count 2.97 M/uL (4.33-5.43)
[2020-12-01 05:56] LABS: Phosphorus 2.7 mg/dL (2.5-4.9)
[2020-12-01] MEDS: INSULIN -REGULAR HUMAN 50 UNIT/0.5 ML ML SQ SCH ×3 (07:30→16:30)
[2020-12-01] MEDS: HYDRALAZINE HCL 25 MG TABLET PO SCH ×2 (09:00→13:13)
[2020-12-01] MEDS: COLLAGENASE 30 GM OINTMENT TOP SCH (09:00)
[2020-12-01] MEDS: JUVEN PACKET PO SCH (09:00)
[2020-12-01] MEDS: GLUCERNA SHAKE 237 ML CAN PO SCH (09:00)
[2020-12-01] MEDS: FAMOTIDINE 20 MG/2 ML VIAL IV SCH (09:00)
[2020-12-01] MEDS: Levofloxacin 250mg IV 250 MG/50 ML BAG IV SCH (09:31)
[2020-12-01] MEDS: AMLODIPINE 5 MG TAB PO SCH (09:32)
[2020-12-01] MEDS: VITAMIN D 5,000 UNIT CAP PO SCH (09:32)
[2020-12-01] MEDS: CALCITROL 0.25 MCG CAP PO SCH (09:32)
[2020-12-01] MEDS: LACTOBACILLUS/ACIDOPHILUS TAB PO SCH ×2 (09:32→13:13)
[2020-12-01] MEDS: MULTIVITAMIN TAB PO SCH (09:33)
[2020-12-01 09:37] VITALS: O2SAT 99
--- NOTE | 2020-12-01 13:14 | P.PN ---
Subjective Date of Service: 12/01/20 Chief Complaint: Resp failure Patient seen examined at bedside, follows no acute complaints. Patient switched to oral Levaquin. Review of Systems 10-point ROS is otherwise unremarkable Physical Examination - Vital Signs Temperature: 98.4 F Blood Pressure: 123/65 Pulse: 69 Respirations: 18 Pulse Ox (%): 99 - Studies Temp Pulse Resp BP Pulse Ox 98.4 F 69 18 123/65 99 12/01/20 08:00 12/01/20 09:32 12/01/20 08:00 12/01/20 09:32 12/01/20 08:00 Albuterol Sulfate (Albuterol 2.5 Mg/3 Ml Neb Lorena) 2.5 mg NEB Q6HP PRN PRN Reason: SHORTNESS OF BREATH Amlodipine Besylate (Amlodipine 5 Mg Tab) 10 mg PO DAILY [facility] Last Admin: 12/01/20 09:32 Dose: 10 mg Documented by: Benzonatate (Benzonatate 100 Mg Cap) 100 mg PO TID PRN PRN Reason: COUGH Last Admin: 11/09/20 22:07 Dose: 100 mg Documented by: Calcitriol (Calcitrol 0.25 Mcg Cap) 0.5 mcg PO DAILY BAIRON Last Admin: 12/01/20 09:32 Dose: 0.5 mcg Documented by: Cholecalciferol (Vitamin D 5,000 Unit Cap) 5,000 unit PO DAILY [facility] Last Admin: 12/01/20 09:32 Dose: 5,000 unit Documented by: Collagenase (Collagenase 30 Gm Ointment) 1 appl TOP DAILY [facility] Last Admin: 12/01/20 09:00 Dose: 1 appl Documented by: Dextrose (D50w 25 Gm/50 Ml Vial) 12.5 gm IV PRN PRN; Protocol PRN Reason: HYPOGLYCEMIA Enteral Nutritional Formula (Glucerna Shake 237 Ml Can) 237 ml PO BID [facility] Last Admin: 12/01/20 09:00 Dose: 237 ml Documented by: Famotidine (Famotidine 20 Mg/2 Ml Vial) 20 mg IV DAILY BAIRON; Protocol Last Admin: 12/01/20 09:00 Dose: 20 mg Documented by: Glucagon (Glucagon 1 Mg/Vial) 1 mg IM 1X PRN; Protocol PRN Reason: HYPOGLYCEMIA Hydralazine HCl (Hydralazine Hcl 20 Mg/Ml Vial) 5 mg IV Q6HP PRN PRN Reason: FOR SBP>160 OR DBP>100 MMHG Last Admin: 11/17/20 00:30 Dose: 5 mg Documented by: Hydralazine HCl (Hydralazine Hcl 25 Mg Tablet) 100 mg PO TID [facility] Last Admin: 12/01/20 09:00 Dose: Not Given Documented by: Insulin Human Regular (Insulin -Regular Human 50 Unit/0.5 Ml Ml) 0 unit SQ ACHS [facility]; Protocol Last Admin: 12/01/20 07:30 Dose: Not Given Documented by: L-Arginine/L-Glutamine/HMB (Vel Packet) 1 pkt PO BID [facility] Last Admin: 12/01/20 09:00 Dose: 1 pkt Documented by: Lactobacillus Acidoph/Bulgaricus (Lactobacillus/Acidophilus Tab) 1 tab PO TID [facility] Last Admin: 12/01/20 09:32 Dose: 1 tab Documented by: Levofloxacin (Levofloxacin 500 Mg Tab) 500 mg PO DAILY [facility]; Protocol Stop: 12/12/20 23:59 Melatonin (Melatonin 5 Mg Tablet) 10 mg PO BEDTIME PRN PRN PRN Reason: insommnia Last Admin: 11/27/20 20:27 Dose: 10 mg Documented by: Metoprolol Tartrate (Metoprolol Tar 25 Mg Tab) 50 mg PO BID 6AM 6PM [facility] Last Admin: 12/01/20 05:22 Dose: 50 mg Documented by: Multivitamins/Minerals (Multivitamin Tab) 1 tab PO DAILY [facility] Last Admin: 12/01/20 09:33 Dose: 1 tab Documented by: Ondansetron HCl (Ondansetron 4 Mg/2 Ml Vial) 4 mg IV Q6HP PRN PRN Reason: NAUSEA / VOMITING Last Admin: 11/21/20 19:53 Dose: 4 mg Documented by: Sodium Chloride (Flush Normal Saline 10 Ml) 10 ml IV BID [facility] Last Admin: 12/01/20 09:00 Dose: 10 ml Documented by: Sodium Chloride (Sodium Chloride 0.9% 10ml Inj) 10 ml IV UD PRN PRN Reason: Diluant Last Admin: 11/14/20 20:25 Dose: 10 ml Documented by: Assessment And Plan - Plan General: Cachectic, Confused HEENT: Atraumatic, Normocephalic Neck: Supple, 2+ carotid pulse no bruit Respiratory: Bibasilar crackles Cardiovascular: No edema, Normal S1 S2 Capillary refill: <2 Seconds Gastrointestinal: Normal bowel sounds, Hypoactive Integumentary: Other (Extensive bruising to left neck and chest area. left collerbone fracture with swelling. Ulcer to left BKA stump.) Assessment: -osteomyelitis of left BKA stump -thrombocytopenia -bilateral multifocal pneumonia vs pulmonary edema -leukocytosis -diabetes type 2 -CKD stage 4 -chronic tobacco user -anemia Plan: -MRI from previous visit confirmed osteomyelitis left BKA stump. Patient on the antibiotic course of 6 weeks. Patient switched from vancomycin to daptomycin due to worsening kidney function. Patient had code blue on 11/12: Daptomycin switch to zyvox due to possible lung damage. Patient restarted on vancomycin on 11/19 with Zosyn discontinued due to thrombocytopenia. Due to worsening thrombocytopenia vancomycin has been Dc. Patient currently on monotherapy with Levaquin. Weekly labs: CBC, CRP, BMP. -throbocytopenia: Zyvox discontinued on 11/19 due to worsening thrombocytopenia. Vancomycin Dc on 11/22. -chest x-ray and chest CT shows bilateral pulmonary opacities, pneumonia versus pulmonary edema. Continue current antibiotic treatments. Pulmonology following, sputum studies revealed normal respiratory simi. Patient weaned off oxygen tolerating room air. Repeat chest x-ray on 11/22 shows mild worsening of the bilateral pulmonary up a cities -leukocytosis: Resolved WBC now within normal range. Previous Increase in white blood cell count could be due to trauma patient experienced outpatient resulting in left collarbone fx and extensive bruising to the neck and upper extremity. -iron deficiency anemia: Maintain hemoglobin of at least 7.0 recommend transfus ion hemoglobin drops below 7.0. Hemoglobin up trending, 10.3 on 11/15. -renally dose antibiotics due to CKD. Renal function shows improvement. -social work consultation ordered for transfer to [place] [facility]: Initial request denies it. Peer to peer denied. Awaiting an appeal. -medical management per primary team -continue monitor CBC and BMP -continue to monitor for signs of infection Plan of care discussed with Dr. Payton Thank you for consultation
--- NOTE | 2020-12-01 14:50 | P.DS ---
Admission Date: 11/06/20 Discharge Date: 12/01/20 Disposition: TRANSFER TO [facility] Discharge Condition: FAIR Reason for Admission: Resp failure - Problems (1) Pneumonia Current Visit: Yes Status: Acute (2) Pulmonary edema Current Visit: Yes Status: Acute (3) Anemia Current Visit: No Status: Acute Qualifiers: Anemia type: iron deficiency Iron deficiency anemia type: unspecified iron deficiency Qualified Code(s): D50.9 - Iron deficiency anemia, unspecified (4) Elevated troponin Current Visit: No Status: Acute (5) Acute worsening of stage 4 chronic kidney disease Current Visit: Yes Status: Acute (6) Osteomyelitis of tibia Current Visit: No Status: Acute (7) Pressure ulcer of BKA stump, stage 2 Current Visit: No Status: Resolved (8) Hypernatremia Current Visit: Yes Status: Acute (9) Acute CVA (cerebrovascular accident) Current Visit: Yes Status: Acute Brief History of Present Illness: 69 yo male with multiple medical problems hospitalized for osteomyelitis remnant tibia left BKA, discharged to home on IV vancomycin via PICC line and oral levaquin presented to the emergency department with a complaint of sharp chest pain, bruising all over his abdomen and right arm and generalized weakness. Patient noted to be Dyspneic. CXR showed moderate bilateral pulmonary opacities which may represent pulmonary edema or pneumonia, heart is mildly enlarged in size, small right pleural effusion. Right PICC line is in place with its tip in the region of the right atrium. CT showed moderate bilateral lung opacities with small bilateral pleural effusions, may indicate pneumonia or pulmonary edema. moderate fecal retention seen particularly in the rectum, early/mild findings of liver cirrhosis. fracture medial aspect the left clavicle, age undetermined. Patient was requiring oxygen for hypoxia. He was admitted for further management. Hospital Course: Patient admitted to the medical floor, IV vancomycin was changed to IV Zyvox because of concern for volume overload from the vancomycin volume. Patient was requiring about 5 L of oxygen by nasal cannula. Infectious Disease was consulted to see patient. Patient apparently developed pulseless electrical activity, sonal galvez was called on him, patient suspected to have aspirated. He was intubated and sent to the ICU. Pulmonary was consulted. He remained intubated for several days and subsequently extubated. Patient did well after extubation. He tolerated oxygen by nasal canula which was gradually weaned off as the pneumonia improved. Acute respiratory failure resolved. Patient has been stable on room air the rest of the hospital stay. Antibiotics was subsequently changed to only Levaquin. Zyvox and vanc were discontinued due to concern for drug induced thrombocytopenia per ID. thrombocytopenia worsened ~4-5 days after initiation of zyvox Heme/onc was consulted due to ongoing thrombocytopenia - she agreed that thrombocytopenia is likely due to a combination of sepsis, liver cirrhosis, possibly drug induced, and expected for it to slowly improve. Platelet count improved to be 80s. Initially failed swallow eval twice, doing much better now and was re-evaluated on 11/25, able to advance his diet. Eating more / tolerating without aspiration. The patient is not tolerating mechanical soft diet. MRI of the brain done to evaluate dysphagia - noted multiple foci of acute CVA. Neurology consulted -who recommended Eliquis, however need to wait for thrombocytopenia to resolve given current high risk for bleeding(anemia requiring blood transfusion and thrombocytopenia). Chronic iron deficiency anemia, s/p [address] Goldstein consulted - EGD done showing mild atrophic gastritis. On protonix. Hemoglobin has been fairly stable around 8. Patient started on low-dose aspirin and will need his H&H monitored at least weekly. He received IV iron for iron deficiency. He had elevated troponin deemed secondary to CALDERON/CKD, hypoxia and anemia. Patient has hepatitis-C and liver cirrhosis will need to f/u with [employer] consultant for further planning/management of hepatitis-C. Multiple ecchymosis noted on the trunk-likely secondary thrombocytopenia and liver disease. L clavicle fracture highly suspicious for recent trauma prior to this admission, however family and patient denied any fall/trauma. Unclear of the acuity of his fractured L clavicle. Ortho recommended no surgical treatment. Patient tolerated physical therapy, and at the moment working on transfer to wheelchair and mobility with wheelchair. Vital Signs/Physical Exam: Temp Pulse Resp BP Pulse Ox 98.4 F 69 18 123/65 99 12/01/20 13:14 12/01/20 13:14 12/01/20 13:14 12/01/20 13:14 12/01/20 13:14 General: Alert, In no apparent distress HEENT: Mucous membr. moist/pink Respiratory: Clear to auscultation bilaterally, Normal air movement Cardiovascular: No edema, Regular rate/rhythm, Normal S1 S2 Gastrointestinal: Normal bowel sounds, Soft and benign, Non-distended Musculoskeletal: Other (Left BKA) Integumentary: Other (Healing wound at the tip of the left BKA stump.) Neurological: Other (No focal motor deficit.) Laboratory Data at Discharge: WBC 4.60 K/uL (4.3-10.9) 12/01/20 05:30 Hgb 8.0 g/dL (13.6-17.9) L 12/01/20 05:30 Hct 24.7 % (39.6-49.0) L 12/01/20 05:30 Plt Count 81 K/uL (152-406) L 12/01/20 05:30 PT 11.2 SECONDS (9.5-12.5) 11/24/20 06:24 INR 0.97 11/24/20 06:24 APTT 30.2 SECONDS (24.3-36.9) 11/24/20 06:24 Sodium 140 mmol/L (136-145) 12/01/20 05:30 Potassium 4.0 mmol/L (3.5-5.1) 12/01/20 05:30 BUN 20 mg/dL (7-18) H 12/01/20 05:30 Creatinine 1.65 mg/dL (0.55-1.3) H 12/01/20 05:30 Glucose 99 mg/dL (74-106) 12/01/20 05:30 Uric Acid 11.5 mg/dL (3.5-7.2) H D 11/07/20 04:50 Phosphorus 2.7 mg/dL (2.5-4.9) 12/01/20 05:30 Magnesium 2.0 mg/dL (1.8-2.4) 11/30/20 05:15 Total Bilirubin 0.6 mg/dL (0.2-1.0) 11/24/20 06:24 AST 47 U/L (15-37) H 11/24/20 06:24 ALT 58 U/L (12-78) 11/24/20 06:24 Alkaline Phosphatase 245 U/L (45-117) H 11/24/20 06:24 Troponin I 1.33 ng/mL (0.0-0.045) H* 11/07/20 15:47 Triglycerides 94 mg/dL (<150) 11/07/20 04:50 Cholesterol 103 mg/dL (<200) 11/07/20 04:50 HDL Cholesterol 30 mg/dL (40-60) L 11/07/20 04:50 Cholesterol/HDL Ratio 3.43 11/07/20 04:50 Lipase 89 U/L (73-393) 11/06/20 18:24 Home Medications: Gabapentin [Neurontin*] 100 mg PO TID #90 cap 11/03/20 Lactobacillus Acidophilus [Acidophilus] 1 each PO TID #90 capsule 11/03/20 Melatonin 10 mg PO BEDTIME PRN PRN #30 tablet 11/03/20 Hydralazine [Apresoline*] 25 mg PO BID #60 tab 11/04/20 Pantoprazole [Protonix Tab*] 1 tab PO BID 11/07/20 Albuterol Neb [Proventil 0.083% Neb Soln] 2.5 mg NEB Q6HP PRN #0 amp 12/01/20 Amlodipine [Norvasc*] 10 mg PO DAILY tab 12/01/20 Aspirin [Aspirin EC 81 MG] 81 mg PO DAILY #30 tablet. 12/01/20 Benzonatate [Tessalon Perle*] 100 mg PO TID PRN cap 12/01/20 Calcitrol [Rocaltrol*] 0.5 mcg PO DAILY cap 12/01/20 Cholecalciferol (Vitamin D3) [Vitamin D 5,000 IU Cap*] 5,000 unit PO DAILY cap 12/01/20 Glucerna Shake [Glucerna*] 237 ml PO BID can 12/01/20 Insulin -Regular Human [Novolin -R*] See Protocol SQ ACHS ml 12/01/20 Vel [Vel*] 1 pkt PO BID powd.pack 12/01/20 Metoprolol Tartrate [Lopressor*] 50 mg PO BID 6AM 6PM tab 12/01/20 Multivit,Ther Iron,Ca,FA & Min [Centrum Tablet*] 1 tab PO DAILY tab 12/01/20 levoFLOXacin [Levaquin*] 500 mg PO DAILY #17 tab 12/01/20 New Medications: Aspirin [Aspirin EC 81 MG] 81 mg PO DAILY #30 tablet. levoFLOXacin [Levaquin*] 500 mg PO DAILY #17 tab Diet: ADA Activity: No weight bearing on left BKA stump. Followup: Alfonzo Mera DO [Primary Care Provider] - (within 2-4 weeks.) Time spent managing pt's care (in minutes): 40
[2020-12-01 17:59] VITALS: BP 116/60; TEMP 98.3
--- NOTE | 2020-12-01 20:20 | P.PN ---
Date of Service: 12/01/20 Vital Signs Temp Pulse Resp BP Pulse Ox 98.3 F 81 18 116/60 94 12/01/20 16:00 12/01/20 16:00 12/01/20 16:00 12/01/20 16:00 12/01/20 16:00 Microbiology Results 11/06/20 19:37 Blood - Blood Aerobic Blood Culture - Final No growth in 5 days. 11/06/20 19:37 Blood - Blood Anaerobic Blood Culture - Final No growth in 5 days. 11/06/20 19:46 Blood - Blood Aerobic Blood Culture - Final No growth in 5 days. 11/06/20 19:46 Blood - Blood Anaerobic Blood Culture - Final No growth in 5 days. Assessment/ Plan: Nephrology CPS stable without CP or SOB +Appetite No acute events overnight. Vitals, medications, blood work and imaging reviewed in the chart. NAD. MMM. Neck supple. CTA. RRR. Soft Abd. No C/C/E. No rash. AAO. Normal Speech. Left BKA. A/P: Continue the current POC and Medications other than the changes listed. AM Labs PRN. Recommend daily weight. Please see the orders for complete details. CALDERON likely due hypovolemia CKD III -No NSAIDs Hypernatremia -Encourage hydration Hyperkalemia/ Hypokalemia -Replete potassium prn Acidosis Hypocalcemia -Continue Vitamin D HypoPO4 -Replete PO4 HTN with tachycardia -Continue Metoprolol 25mg BID -Continue Amlodipine -Continue Hydralazine 100 TID Diastolic CHF -Low sodium diet -Lasix prn Moderate malnutrition Dysphagia -Encourage nutrition Anemia in chronic illness Iron deficiency Thrombocytopenia -PRBC transfusion PRN -sp IV iron Osteomyelitis of tibia -Continue abx BL PNA with ARDS vs CHF Acute hypoxic resp failure -Continue Levaquin
[2020-12-02] MEDS ORDERED: levoFLOXacin 500 MG TAB PO SCH (09:00)
== END 2020-12-01 16:53 | DRG 871 ==
LOC: ER 15:08 → ERHOLD 21:54 → 2ND 11-07 07:33 → ERHOLD 11-12 12:01 → 2ND 11-15 21:40
PROVIDERS: ADMIT Internal Medicine; ATTEND Internal Medicine
PROC: 30233N1 Transfusion of Nonautologous Red Blood Cells into Peripheral Vein, Percutaneous Approach (ICD-10-PCS; 2020-11-07)
PROC: 0DB78ZX Excision of Stomach, Pylorus, Via Natural or Artificial Opening Endoscopic, Diagnostic (ICD-10-PCS; 2020-11-08)
PROC: 5A1945Z Respiratory Ventilation, 24-96 Consecutive Hours (ICD-10-PCS; principal; 2020-11-12)
PROC: 0BH17EZ Insertion of Endotracheal Airway into Trachea, Via Natural or Artificial Opening (ICD-10-PCS; 2020-11-12)
DX: A41.9 Sepsis, unspecified organism (principal); J18.9 Pneumonia, unspecified organism; I21.A1 Myocardial infarction type 2; E11.10 Type 2 diabetes mellitus with ketoacidosis without coma; K25.4 Chronic or unspecified gastric ulcer with hemorrhage; J96.01 Acute respiratory failure with hypoxia; I50.33 Acute on chronic diastolic (congestive) heart failure; I63.9 Cerebral infarction, unspecified; K29.41 Chronic atrophic gastritis with bleeding; T82.848A Pain due to vascular prosthetic devices, implants and grafts, initial encounter; T87.44 Infection of amputation stump, left lower extremity; N39.0 Urinary tract infection, site not specified; N17.9 Acute kidney failure, unspecified; N18.4 Chronic kidney disease, stage 4 (severe); M86.169 Other acute osteomyelitis, unspecified tibia and fibula; E87.2 Acidosis; E44.0 Moderate protein-calorie malnutrition; I13.0 Hypertensive heart and chronic kidney disease with heart failure and stage 1 through stage 4 chronic kidney disease, or unspecified chronic kidney disease; E11.22 Type 2 diabetes mellitus with diabetic chronic kidney disease; K74.60 Unspecified cirrhosis of liver; D63.8 Anemia in other chronic diseases classified elsewhere; K44.9 Diaphragmatic hernia without obstruction or gangrene; K59.00 Constipation, unspecified; D50.9 Iron deficiency anemia, unspecified; L89.892 Pressure ulcer of other site, stage 2; E87.5 Hyperkalemia; S42.002A Fracture of unspecified part of left clavicle, initial encounter for closed fracture; R79.89 Other specified abnormal findings of blood chemistry; R77.8 Other specified abnormalities of plasma proteins; Z88.0 Allergy status to penicillin; Z95.828 Presence of other vascular implants and grafts; Z79.84 Long term (current) use of oral hypoglycemic drugs; Z68.23 Body mass index [BMI] 23.0-23.9, adult; Z89.512 Acquired absence of left leg below knee; Z87.891 Personal history of nicotine dependence; Z20.822 Contact with and (suspected) exposure to COVID-19; Z78.1 Physical restraint status; E11.628 Type 2 diabetes mellitus with other skin complications; I27.20 Pulmonary hypertension, unspecified; I34.0 Nonrheumatic mitral (valve) insufficiency; E83.52 Hypercalcemia; B19.20 Unspecified viral hepatitis C without hepatic coma; R13.12 Dysphagia, oropharyngeal phase; E11.69 Type 2 diabetes mellitus with other specified complication
CPT/HCPCS: 0240U; 36415; 36430; 70551; 71045; 71250; 74176; 74230; 76700; 80048; 80053; 80061; 80069; 80076; 80202; 81001; 81003; 81015; 82140; 82550; 82570; 82728; 82805; 82947; 83540; 83605; 83690; 83735; 83880; 84100; 84132; 84145; 84156; 84300; 84439; 84443; 84466; 84484; 84550; 85014; 85018; 85025; 85027; 85610; 85652; 85730; 86140; 86850; 86900; 86901; 87040; 87070; 87086; 87088; 87205; 87324; 87389; 87449; 88305; 88312; 92526; 92610; 92611; 93005; 93306; 93880; 94002; 94003; 94640; 94760; 97110; 97116; 97161; 97164; 97530; 97542; 99285; C9113; J0360; J0692; J0878; J1170; J1630; J1644; J1940; J2020; J2250; J2310; J2405; J2704; J2765; J2916; J2920; J2930; J3010; J3370; J3411; J3475; J3480; J3590; J7030; J7040; J7050; J7799; P9016; P9047; U0003

== ENCOUNTER 2020-12-14 15:03 | Emergency (ER) | payer OTHER ==
--- OUTSIDE RECORDS SUMMARY | 2020-12-14 15:09 | XMS REPORT | Continuity of Care Document ---
:1950 Author Organization [facility] t Address [facility] [place] [address] Care Team Providers Name Role Phone Lynda Espinoza MD Attending Clinician Niranjan Jackson MD Attending Clinician Lynda ESPINOZA Attending Clinician Unavailable Narda MAXWELL, Eric Attending Clinician Jose Ross MD Attending Clinician Lynda ESPINOZA Admitting Clinician Unavailable Payers Payer Name Policy Type Policy Effective Date Expiration Date Sour ce Number [employer] MEDICARE [id number] 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 00:00: Me dical site site 00 Center Liver Liver Disease Active [facility] cirrhosis cirrhosis 3- [facility] - 00:00: Medical 00 [place] Portal Portal Disease Active [facility] hypertensi hypertensi - Estrella kes - ve ve 00:00: Medical gastropath gastropath 00 Ce nter y y GI bleed GI bleed Disease Active [facility] 3[facility]18 [facility] - 00:00: Medical 00 [place] Allergies, Adverse Reactions, Alerts Allergy Allergy Status Severity Reaction(s) Onset Inactive Treating Comm ents Source Name Type Date Date Clinician Penicill Drug Active Rash [facility] Allergy 12[facility]13 [facility] - 00:[facility]: Medical 00 Center Penicill Adverse Active Info Not [facility] amine Reaction [facility] Social History Social Habit Start Date Stop Date Quantity Comments Source Sex Assigned At [facility] Tobacco use and 2020-10-04 2020-10-04 Never used [facility] - exposure 00:00:00 00:00:00 [facility] Alcohol intake 2020-10-04 2020-10-[address] [facility] Elvis hewitt [facility] - 00:00:00 00:00:00 of alcohol [facility] (finding) Smoking Status Start Date Stop Date Source Current every day smoker 2020-10-04 00:00:00 [facility] Medications Ordered Filled Start Stop Current [...] [address] [facility] [facility] Hydrochloro Hydrochloro Yes Alfonzo [address] thiazide thiazide Mera in the Luke s - morning [facility] Pantoprazol Pantoprazol Yes Alfonzo [address] e Sodium e Sodium Mera [facility] Metoprolol Metoprolol Yes Alfonzo [address] Tartrate Tartrate Mera with food [facility] Ferrous Ferrous Yes Alfonzo [address] Sulfate Sulfate Mera [facility] Amlodipine Amlodipine Yes Alfonzo [address] Besylate Besylate Mera [facility] Gabapentin Gabapentin Yes Alfonzo [address] Mera [facility] Metformin Metformin Yes Alfonzo [address] HCl HCl Mera with a [facility] - meal [facility] Vital Signs Vital Name Observation Time Observation Value Comments Source Systolic blood 2020-10-03 19:17:00 111 mm[Hg] [facility] Diastolic blood 2020-10-03 19:17:00 61 mm[Hg] [facility] rate 2020-10-03 19:17:00 75 /min [facility] Body temperature 2020-10-03 19:17:00 36.94 Latesha [facility] Respiratory rate 2020-10-03 19:17:00 17 /min [facility] Oxygen saturation in 2020-10-03 19:17:00 98 /min [facility] - Arterial blood by Medical Ce nter Pulse oximetry Body weight 2020-10-03 07:05:00 51.982 kg [facility] BMI 2020-10-03 07:05:00 20.96 kg/m2 [facility] Body height 2020-09-30 05:22:00 157.5 cm [facility] Procedures Procedure Date / Time Performed Performing Clinician Sourc e POCT-GLUCOSE METER 2020-10-03 18:09:00 Alice Jackson [facility] HEPATITIS B PCR, 2020-10-03 15:49:[address] [facility] HEPATITIS C PCR, 2020-10-03 15:49:00 Sarkis Laboy [facility] POCT-GLUCOSE METER 2020-10-03 11:48:00 Renetta [facility] POCT-GLUCOSE METER 2020-10-03 08:34:00 Renetta [facility] CBC W/PLT COUNT & AUTO 2020-10-03 04:35:00 Nate Fields [facility] CBC (HEMOGRAM ONLY) 2020-10-03 04:35:00 Delmi Peguero [facility] BASIC METABOLIC PANEL (7) 2020-10-03 04:35:[address] [facility] ACTIN (SMOOTH MUSCLE) 2020-10-03 04:35:00 [facility] IGG [facility] ALPHA FETOPROTEIN (AFP), 2020-10-03 04:35:[address] [facility] TUMOR MARKER [facility] [id number]\\, 2020-10-03 04:35:00 [facility] SERUM [facility] ANTI-NUCLEAR ANTIBODY 2020-10-03 04:35:00 [facility] - (GAMAL) [facility] BILIRUBIN, DIRECT 2020-10-03 04:35:00 Wendy [facility] CERULOPLASMIN 2020-10-03 04:35:00 Wendy [facility] HEPATITIS A ANTIBODY, IGG 2020-10-03 04:35:00 Wendy [facility] HEPATITIS B SURFACE 2020-10-03 04:35:00 Wendy, Kiah [facility] - ANTIBODY [facility] HEPATITIS B SURFACE 2020-10-03 04:35:00 Wendy[facility] ANTIGEN [facility] HEPATITIS B CORE 2020-10-03 04:35:00 [facility] Kulwindermary annTri[facility]City [facility] - ANTIBODY, TOTAL [facility] HEPATITIS C ANTIBODY 2020-10-03 04:35:00 [facility] Delfinaq [facility] MITOCHONDRIA M2 ANTIBODY 2020-10-03 04:35:00 [facility] - (IGG) [facility] PROTHROMBIN TIME/INR 2020-10-03 04:35:00 [facility] POCT-GLUCOSE METER 2020-10-02 21:19:00 Alice Jackson [facility] CBC W/PLT COUNT & AUTO 2020-10-02 17:29:00 Nate Fields [facility] VANCOMYCIN LEVEL, TROUGH 2020-10-02 17:29:[address] [facility] POCT-GLUCOSE METER 2020-10-02 17:24:00 Alice Jackson [facility] POCT-GLUCOSE METER 2020-10-02 11:21:00 Alice Jackson [facility] POCT-GLUCOSE METER 2020-10-02 08:03:00 Alice Jackson [facility] CBC W/PLT COUNT & AUTO 2020-10-02 03:39:00 Nate Fields [facility] COMPREHENSIVE METABOLIC 2020-10-02 03:39:00 Delmi Peguero [facility] POCT-GLUCOSE METER 2020-10-01 21:23:00 Alice Jackson [facility] HEMOGLOBIN A1C 2020-10-01 14:34:00 GerardDelmi crum [facility] CBC W/PLT COUNT & AUTO 2020-10-01 12:08:[address] [facility] DIFFERENTIAL [facility] POCT-GLUCOSE METER 2020-10-01 10:58:00 Alice Jackson [facility] REPORT OF PROCEDURE - 2020-10-01 10:35:58 Narda [facility] ENDOSCOPY [facility] VANCOMYCIN LEVEL, RANDOM 2020-10-01 10:06:[address] [facility] TISSUE EXAM 2020-10-01 09:43:00 Narda [facility] UPPER ENDOSCOPY,BIOPSY 2020-10-01 09:14:00 Narda [facility] POCT-GLUCOSE METER 2020-10-01 08:23:00 Alexis Jacksonurad [facility] POCT-GLUCOSE METER 2020-10-01 05:11:00 Renetta Alice [facility] VITAMIN B12 AND FOLATE 2020-10-01 04:42:00 Ford Espinoza [facility] IRON, TIBC, % SAT. 2020-10-01 04:42:00 Ford Espinoza [facility] (WITHOUT FERRITIN) [facility] 2020-10-01 04:42:00 Ford Espinoza [facility] CBC W/PLT COUNT & AUTO 2020-10-01 02:44:00 Adrienne Ortiz [facility] - DIFFERENTIAL [facility] SARS-COV2/RT-PCR ([facility] & 2020-10-01 02:44:00 Nate Fields [facility] - REF LABS) [facility] COMPREHENSIVE METABOLIC 2020-10-01 02:44:00 Nate Fields [facility] CBC W/PLT COUNT & AUTO 2020-09-30 20:01:[address] [facility] DIFFERENTIAL [facility] POCT-GLUCOSE METER 2020-09-30 20:00:00 Alice Jackson [facility] CBC (HEMOGRAM ONLY) 2020-09-30 15:15:00 Nate Fields [facility] I [facility] POCT-GLUCOSE METER 2020-09-30 14:20:00 Alice Jackson [facility] US ABDOMEN LIMITED 2020-09-30 11:32:00 Ford Espinoza [facility] BLOOD CULTURE 2020-09-30 09:45:00 Planejose angel [facility] CBC W/PLT COUNT & AUTO 2020-09-30 09:22:00 Planejose angel [facility] BLOOD CULTURE 2020-09-30 09:22:00 [facility] LACTIC ACID, VENOUS 2020-09-30 09:22:00 [facility] URINALYSIS W/ REFLEX 2020-09-30 09:22:00 [facility] URINE CULTURE [facility] XR CHEST 1 VIEW 2020-09-30 08:39:00 Adrienne Ortiz [facility]/BEDSIDE [facility] HEMOGLOBIN A1C 2020-09-30 06:52:00 Malcolm Hernandez [facility] POCT-GLUCOSE METER 2020-09-30 06:27:00 Ford Espinoza [facility] PROTHROMBIN TIME/INR 2020-09-30 06:22:00 Malcolm Hernandez CH, I [facility] APTT 2020-09-30 06:22:00 Malcolm Hernandez [facility] COMPREHENSIVE METABOLIC 2020-09-30 06:22:00 Malcolm Hernandez [facility] REPORT OF PROCEDURE - 2020-09-30 00:00:[address] [facility] - ENDOSCOPY SCAN Scanning [facility] SARS-COV2/RT-PCR ([facility] & 2020-01-25 19:40:[address] [facility] - REF LABS) [facility] Plan of Care Planned Activity Planned Date Details Comments Source Future Scheduled 2020-07-[address] [facility] - Test 00:00:00 (12+) [code = [facility] DEPRESSION SCREENING (12+)] Future Scheduled [...] es - Test 00:00:00 [facility] colon (procedure) [code = 623218409] Encounters Start End Encounter Admission Attending Care Care Encounter Source Date/Time Date/Time Type Type Clinicians Facility Department ID 2020-06-24 2020-06-24 [id number] 2020-06-03 2020-06-03 [facility] [id number] 2020-05-25 2020-05-25 [facility] [id number] [facility] 2020-05-13 2020-05-13 [facility] [id number] [facility] 2020-04-29 2020-04-29 [facility] [id number] [facility] 2020-04-15 2020-04-15 [facility] [id number] [facility] 2020-04-15 2020-04-15 [facility] [id number] [facility] 2020-04-07 2020-04-07 [facility] [id number] [facility] 2020-03-26 2020-03-26 [facility] [id number] 09:10:00 09:10:00 [facility] [employer] [place] [facility] Medicine Outpati ent Clinics 2019-09-21 2019-09-21 [facility] [id number] 21:47:00 21:47:00 [facility] Medicine Outpati ent Clinics 2019-09-19 2019-09-19 [facility] [id number] 13:30:00 13:30:00 [facility] Medicine Outpati ent Clinics 2019-09-10 2019-09-10 [facility] [id number] 10:15:00 10:15:00 t [facility] Medicine Outpati ent Clinics 2019-06-20 2019-06-20 [facility] [id number] 13:20:00 13:20:00 [facility] Medicine Outpati ent Clinics 2019-03-21 2019-03-21 [facility] [id number] 11:20:00 11:20:00 [facility] Medicine Outpati ent Clinics Results Test Description Test Time Test Comments Results Result Comments Source Actin (Smooth Muscle) Antibody, IgG 2020-10-07 01:25:00 Test Item Value Reference Range Interpretation Comme nts Anti-Smooth Muscle <20 See Note: U Reference Range:<20 Ab (test code = NEGATIVE> OR = 20 POSITIVE [id number]) Antibodies raad gnizing actin are the main compon entof smooth muscle antibodi es associated withautoimmune liver disease. Actin antibodie s arefound in approximately 7 5% of patients withautoimmune hepatitis (AIH) type 1, approxi % of patients with a utoimmune cholangitis,chitra roximately 30% of patients with p rimary biliarycirrhosi s, and approximately 2 % of healthy people.High giulia ues are closely correlated with AIH type 1. ELIANA (test code = Performing Lab ELIANA) EZ [facility][1] [address] [place] [address] Obdulia Ulrich MD, PhD, MARINA [facility] HospitalCeruloplasmin2021-03-24 14:07:00 Test Item Value Reference Range Interpretation Comments Ceruloplasmin (test code 39 mg/dL 18-36 H = 20190906) ELIANA (test code = ELIANA) Performing Lab *GIULIA [facility], [address] [place] [phone] Nereida Rocha MD Lab Interpretation (test Abnormal code = 42529-8) [facility] HospitalMitochondria M2 Antibody (IgG)2020-10-06 13:29:00 Test Item Value Reference Range Interpretation Comments Mitochondria M2 Ab 20.3 U See Note: H Reference (test code = 4353658) Range: NEGATIVE: < OR = 20.0EQUIVOCAL: 20.1-24.9POSITI VE: > OR = 25.0 ELIANA (test code = ELIANA) Performing Lab EZ [facility][1] [address] [place] [address] Obdulia Ulrich MD, PhD, MARINA Lab Interpretation Abnormal (test code = 88061-5) [facility] - Routine (Left Venipuncture) 2020-10-05 14:00:00 Test Item Value Reference Range Interpretation Comments Result (test code = No growth in 5 days 6463-4) [facility] HospitalBLOOD [id number] 14:00:00 Test Item Value Reference Range Interpretation Comments CULTURE (BEAKER) (test No growth in 5 days code = 1095) BLOOD [id number] 11:00:00 Test Item Value Reference Range Interpretation Comments CULTURE (BEAKER) (test No growth in 5 days code = 1095) Hepatitis B PCR, [id number] 20:15:00 Test Item Value Reference Range Interpretation Comments HBV PCR, Quantitative HBV DNA not detected HBV DNA not (test code = 19802-7) detected ELIANA (test code = ELIANA) This test uses a Real-Time Polymerase Chain Reaction (RT-PCR) methodology and was performed using MADONNA AmpliPrep/MADONNA TaqMan HBV Test, v2.0 ([employer] Reportable range for this assay is 20 - 170,000,000 IU per mL (1.30 - 8.23 Log IU/mL). Lab Interpretation Normal (test code = 45436-5) [facility] B PCR, [id number] 20:15:00 Test Item Value Reference Range Interpretation Comments HBV RESULT COMPONENT HBV DNA not detected HBV DNA not detected (BEAKER) (test code = 2701) This test uses a Real-Time Polymerase Chain Reaction (RT-PCR) methodology and was performed using MADONNA AmpliPrep/MADONNA TaqMan HBV Test, v2.0 ([employer]Reportable range for this assay is 20 - 170,000,000 IU per mL (1.30 - 8.23 Log IU/mL).Hepatitis C PCR, [id number] 19:56:00 Test Item Value Reference Range Interpretation Comments HCV PCR, Quantitative 720906 See_Comment H [Auto mated (test code = 52119-2) messag e] The system which generated this result transmitted reference range : <15 IU/mL. The reference range was not used to interpret this result as normal/abnormal . ELIANA (test code = ELIANA) This test uses a Real-Time Polymerase Chain Reaction (RT-PCR) methodology and was performed using MAD[employer]NA Ampliprep/MADONNA TaqMan HCV test kit version 2.0 ([employer] Reportable range for this assay is 15 - 100,000,000 IU per mL (1.18 - 8.00 Log IU/mL). Lab Interpretation Abnormal (test code = 46676-9) [facility] C PCR, [id number] 19:56:00 Test Item Value Reference Range Interpretation Comments HCV NUMERIC RESULT (BEAKER) 063789 IU/mL <15 H (test code = 2700) This test uses a Real-Time Polymerase Chain Reaction (RT-PCR) methodology and was performed using MADONNA Ampliprep/MADONNA TaqMan HCV test kit version 2.0 ([employer]Reportable range for this assay is 15 - 100,000,000 IU per mL (1.18 - 8.00 Log IU/mL).Anti-Nuclear Antibody (GAMAL) 2020-10-04 12:41:00 Test Item Value Reference Range Interpretation Comments GAMAL (test code = 49629-6) Negative Negative ELIANA (test code = ELIANA) Test performed by IFA method. Lab Interpretation (test Normal code = 03065-1) [facility] HospitalANTI-NUCLEAR ANTIBODY (GAMAL)2020-10-04 12:41:00 Test Item Value Reference Range Interpretation Comments ANTI-NUCLEAR ANTIBODY (GAMAL) (BEAKER) Negative Negative (test code = 418) Test performed by IFA method.POC-Glucose [id number] 18:23:00 Test Item Value Reference Range Interpretation Comments POC-Glucose Meter (test 127 mg/dL 70-110 H : TE STED AT [facility] code = 1538) [address] [facility], 770 30: District Recruiter/Techni min ID = [id number] for Igbalajobi, She neto Lab Interpretation (test Abnormal code = 77872-9) [facility] HospitalPOCT-GLUCOSE [id number] 18:23:00 Test Item Value Reference Range Interpretation Comments POC-GLUCOSE METER 127 mg/dL 70-110 H : TESTED A T [facility] 6720 ([facility]) (test code = [facility], 1538) [address]: District Recruiter/Techni min ID = [id number] for Igbalajobi, She neto POCT-GLUCOSE [id number] 12:00:00 Test Item Value Reference Range Interpretation Comments POC-GLUCOSE METER 78 mg/dL 70-110 : TESTED A T [facility] 6720 ([facility]) (test code = [facility], 1538) [address]: District Recruiter/Techni min ID = [id number] for Igba lorenzo Kassandra Hepatitis B core antibody, [id number] 10:45:00 Test Item Value Reference Range Interpretation Comments Hep B Core Total Ab (test Reactive Nonreactive A code = 08654-1) ELIANA (test code = ELIANA) District Recruiter ID - DBOperator ID - DBOperator ID - DB Lab Interpretation (test Abnormal code = 33867-7) [facility] HospitalHEPAT[facility]IS B CORE ANTIBODY, [id number] 10:45:00 Test Item Value Reference Range Interpretation Comments HEPATITIS B CORE TOTAL ANTIBODY Reactive Nonreactive A (BEAKER) (test code = 497) District Recruiter ID - DBOperator ID - DBOperator ID - DBPOCT-GLUCOSE [id number] 08:50:00 Test Item Value Reference Range Interpretation Comments POC-GLUCOSE METER 83 mg/dL 70-110 : TESTED A T [facility] 6720 (BEAKER) (test code = [place], 1538) [address]: District Recruiter/Techni min ID = [id number] for Kassandra Woods [id number] 08:30:00 Test Item Value Reference Range Interpretation Comments A-1 Antitrypsin (test 189.40 mg/dL 90-200 code = 1825-9) ELIANA (test code = ELIANA) District Recruiter ID - DBOperator ID - DBOperator ID - DB Lab Interpretation (test Normal code = 72914-1) [facility] [id number] 08:30:00 Test Item Value Reference Range Interpretation Comments ALPHA-1 ANTITRYPSIN (BEAKER) 189.40 mg/dL 90.00-200.00 (test code = 502) District Recruiter ID - DBOperator ID - DBOperator ID - DBHepatitis A antibody, IgG 2020-10-03 07:01:00 Test Item Value Reference Range Interpretation Comments Hep A IgG (test code = Reactive Nonreactive A 59980-3) ELIANA (test code = ELIANA) District Recruiter ID - DB Lab Interpretation (test Abnormal code = 45845-9) [facility] HospitalHEPAT[facility]IS A ANTIBODY, [id number] 07:01:00 Test Item Value Reference Range Interpretation Comments HEPATITIS A IGG ANTIBODY (BEAKER) Reactive Nonreactive A (test code = 2797) District Recruiter ID - DBHepatitis C [id number] 06:59:00 Test Item Value Reference Range Interpretation Comments Hepatitis C Ab (test code = Reactive Nonreactive A 37564-8) ELIANA (test code = ELIANA) District Recruiter ID - DB Lab Interpretation (test Abnormal code = 66820-1) [facility] HospitalHEPAT[facility]IS C [id number] 06:59:00 Test Item Value Reference Range Interpretation Comments HEPATITIS C ANTIBODY (BEAKER) (test Reactive Nonreactive A code = 367) District Recruiter ID - DBBasic Metabolic [id number] 06:38:00 Test Item Value Reference Range Interpretation [...] (test code = 7.8 mg/dL 8.4-10.2 L 61331-0) EGFR (test code = 39 mL/min/1.73 sq m [facility] [place] [address]-1) NOT ACCURATE CREATININE CLEARANCE IN PREDICTING GLOMERULAR FILTRATION RATE . ESTIMATED GFR I S NOT APPLICABLE FOR DIALYSIS PATIENTS. ELIANA (test code = ELIANA) District Recruiter ID - EDASI Lab Interpretation Abnormal (test code = 90227-5) [facility] HospitalBilirubin, [id number] 06:38:00 Test Item Value Reference Range Interpretation Comments Bilirubin, Direct (test 0.2 mg/dL 0.1-0.5 code = 1968-7) ELIANA (test code = ELIANA) District Recruiter ID - EDASI Lab Interpretation (test Normal code = 03432-1) [facility] HospitalBILIRUBIN, [id number] 06:38:00 Test Item Value Reference Range Interpretation Comments BILIRUBIN DIRECT (BEAKER) (test 0.2 mg/dL 0.1-0.5 code = 706) District Recruiter ID - EDASIBASIC METABOLIC [id number] 06:38:00 Test Item Value Reference Range Interpretation [...] S NOT APPLICABLE FOR DIALYSIS PATIEN TS. District Recruiter ID - EDASIHepatitis B surface [id number] 06:14:00 Test Item Value Reference Range Interpretation Comments Hep B S Ab (test code <8.0 See_Comment [Auto mated = 94358-5) message] The system which generated this result transmit altagracia reference range : <8.0 mIU/mL. Th e reference range was not used to interpret this result as normal/abnormal . ELIANA (test code = ELIANA) District Recruiter ID - DB Lab Interpretation Normal (test code = 84904-3) [facility] HospitalHEPAT[facility]IS B SURFACE [id number] 06:14:00 Test Item Value Reference Range Interpretation Comments HEPATITIS B SURFACE ANTIBODY < mIU/mL <8.0 (BEAKER) (test code = 647) District Recruiter ID - DBHepatitis B surface [id number] 06:13:00 Test Item Value Reference Range Interpretation Comments HBsAg Screen (test code Nonreactive Nonreactive = 5195-3) ELIANA (test code = ELIANA) Specimen is considered negative for HBsAg. Lab Interpretation (test Normal code = 50700-2) [facility] HospitalAlpha fetoprotein (AFP), tumor [id number] 06:13:00 Test Item Value Reference Range Interpretation Comments Alpha-Fetoprotein (test code 2.1 ng/mL <10.0 = 1834-1) ELIANA (test code = ELIANA) District Recruiter ID - DB Lab Interpretation (test Normal code = 51919-3) [facility] HospitalHEPATITIS B SURFACE [id number] 06:13:00 Test Item Value Reference Range Interpretation Comments HEPATITIS B SURFACE ANTIGEN (2) Nonreactive Nonreactive (BEAKER) (test code = 2585) Specimen is considered negative for HBsAg.ALPHA FETOPROTEIN (AFP), TUMOR MARKER 2020-10-03 06:13:00 Test Item Value Reference Range Interpretation Comments ALPHA-FETOPROTEIN (BEAKER) (test 2.1 ng/mL <10.0 code = 1094) District Recruiter ID - DBProthrombin time/[id number] 05:06:00 Test Item Value Reference Interpretation Comments Range Protime (test code = 14.4 See_Comment H [Autom ated 2672-2) message] The system which generated this result transmitted reference range : 11.9 - 14.2 seconds. The reference range was not used to interpret this result as normal/abnormal . INR (test code = 1.16 See_Comment [Automated 1921-6) message] The system which generated this result [...] valves. Lab Interpretation Abnormal (test code = 72660-1) [facility][id number] 05:06:00 Test Item Value Reference Range Interpretation Comments PROTIME (BEAKER) 14.4 seconds 11.9-14.2 H (test code = 759) INR (BEAKER) (test 1.16 See_Comment [Automat ed message] code = 370) The system [employer] generated this result transmitted ref erence range: [...] 8.8 See_Comment [A utomated message] The system [employer] generated this result transmitted ref erence range: 3.5 - 10 .5 K/L. The refe rence range was not u sed to interpret this result as normal/abnor mal. RBC (test code = 789-8) 2.56 See_Comment L [Au tomated message] The system [employer] generated this result transmitted ref erence range: 4.63 - 6 .08 M/L. The refe rence range was not u sed to interpret this result as normal/abnor mal. MCHC (test code = 786-4) 31.8 See_Comment L [A utomated message] The system [employer] generated this result transmitted ref erence range: [...] See_Comment [Aut omated message] 777-3) The system [employer] generated this result transmitted ref erence range: 150 - 45 0 K/CU MM. The referen ce range was not u sed to interpret this result as normal/abnor mal. MPV (test code = 10.2 fL 9.4-12.4 37653-8) nRBC (test code = 413) 0 See_Comment [Aut omated message] The system [employer] generated this result transmitted ref erence range: 0 - 0 /1 00 WBC. The refere nce range was not u sed to interpret this result as normal/abnor mal. Lab Interpretation (test Abnormal code = 21504-9) [facility] with platelet count + automated [id number] 04:58:00 Test Item Value Reference Range Interpretation Comments WBC (test code = 6690-2) 8.8 See_Comment [A utomated message] The system [employer] generated this result transmitted ref erence range: 3.5 - 10 .5 K/L. The refe rence range was not u sed to interpret this result as normal/abnor mal. RBC (test code = 789-8) 2.56 See_Comment L [Au tomated message] The system [employer] generated this result transmitted ref erence range: 4.63 - 6 .08 M/L. The refe rence range was not u sed to interpret this result as normal/abnor mal. MCHC (test code = 786-4) 31.8 See_Comment L [A utomated message] The system [employer] generated this result transmitted ref erence range: [...] See_Comment [Aut omated message] 777-3) The system [employer] generated this result transmitted ref erence range: 150 - 45 0 K/CU MM. The referen ce range was not u sed to interpret this result as normal/abnor mal. MPV (test code = 10.2 fL 9.4-12.4 11833-5) nRBC (test code = 413) 0 See_Comment [Aut omated message] The system [employer] generated this result transmitted ref erence range: [...] H [Aut omated message] 670) The system [employer] generated this result transmitted ref erence range: 1.78 - 5 .38 K/L. The refe rence range was not u sed to interpret this result as normal/abnor mal. # Lymphs (test code = 0.86 See_Comment L [Auto mated message] 414) The system [employer] generated this result transmitted ref erence range: 1.32 - 3 .57 K/L. The refe rence range was not u sed to interpret this result as normal/abnor mal. # Monos (test code = 0.72 See_Comment [Autom ated message] 415) The system [employer] generated this result transmitted ref erence range: 0.30 - 0 .82 K/L. The refe rence range was not u sed to interpret this result as normal/abnor mal. # Eos (test code = 416) 0.12 See_Comment [Au tomated message] The system [employer] generated this result transmitted ref erence range: 0.04 - 0 .54 K/L. The refe rence range was not u sed to interpret this result as normal/abnor mal. # Baso (test code = 417) 0.02 See_Comment [A utomated message] The system [employer] generated this result transmitted ref erence range: 0.01 - 0 .08 K/L. The refe rence range was not u sed to interpret this result as normal/abnor mal. Immature 1 % 0-1 Granulocytes-Relative (test code = 2801) Lab Interpretation (test Abnormal code = 97637-4) [facility] W/PLT COUNT & AUTO [id number] 04:58:00 Test Item Value Reference Range Interpretation [...] 0-0 (BEAKER) (test code = 413) POCT-GLUCOSE [id number] 21:32:00 Test Item Value Reference Range Interpretation Comments POC-GLUCOSE METER 128 mg/dL 70-110 H : [facility] ([facility]ER) (test code = [place], 1538) [address]: District Recruiter/Techni min ID = [id number] for Marlyn mariano Lien Vancomycin level, [id number] 18:09:00 Test Item Value Reference Range Interpretation Comments Vancomycin Tr (test code 6.3 ug/mL 10-20 L = 4092-3) ELIANA (test code = ELIANA) District Recruiter ID - DBIf vancomycin trough level > 20 mcg/mL, hold next vancomycin dose, and contact MD and pharmacist. Lab Interpretation (test Abnormal code = 84516-9) [facility], [id number] 18:09:00 Test Item Value Reference Range Interpretation Comments VANCOMYCIN TROUGH (BEAKER) (test 6.3 ug/mL 10.0-20.0 L code = 522) District Recruiter ID - DBIf vancomycin trough level > 20 mcg/mL, hold next vancomycin dose, [facility] W/PLT COUNT & AUTO DIFFERENTIAL 2020-10-02 [...] PERCENT (BEAKER) (test code = 2801) POCT-GLUCOSE [id number] 17:36:00 Test Item Value Reference Range Interpretation Comments POC-GLUCOSE METER 124 mg/dL 70-110 H : TESTED A T [facility] 6720 (BEAKER) (test code = [place], 1538) [address]: District Recruiter/Techni min ID = [id number] for Jaswinder Jefferson Tissue [id number] 14:24:00 Test Item Value Reference Range Interpretation Comments Case Report (test code Surgical Pathology = 104) Report Case: [id number] Authorizing Provider: Sarkis Laboy, Collected: 10/01/2020 09:43 AM Ordering Location: [place] [address] ccu Received: 10/01/2020 01:48 PM Pathologist: Pa Peters MD Specimens: A) - Biopsy, Gastric, random biopsy B) - Gastric, gastric erythema biopsy DIAGNOSIS (test code = b5jyrEWkYCZav0pmVIOrhT 3220) FuZzEwMzNcZnRuYmpcdWMx IHtccnRmMVxlcGljOTIwMl lwlbZaIISyzTOyY7Atgfmp PJbhNA6vZF9ieWyjaYFyyC GjGKOmQnMcu6wtd792hDYt a5apGYONzjomsQb7aYteJ1 3wb7X4EshkB32xaPZiKUds bGFpblxmczIwIEEuIFNUT0 0FV9jzTCCUFpDIYTPSFgDK Y1ZSLCxFMA6NO04GYPfcYt nFFMRGVEL1MRZuydh7IEJy GKKOByECFTxlJMQMC4KXJM dJVEggTUlMRCBDSFJPTklD OUkCHCVIDUSCDNrBB7NCNW HSEwDZHrGuYt8QNQzxET6T TXBOEP4MDNCAKRAVHJwMO8 mIAZLuwra9QUPuOSUJKEnU RAfFOK8VY59RKQCSOYFAXX 5ZHTHbW4wJF07HOgQVMtPH VElWRSBHQVNUUklUSVMgV0 bKRAOMY2FGBNOYV8IPMkxH FPvlHHUjkCVxAC5wC2ZDFF jREbGJTRVOMwmfY2KMZF9c QtHUWUAVPaXrGp6YSIpaLK BRIP4XOYMINXoYKE5RI4DT OOFPR2knGHRkjLGeRO1fJp KYLDJFWpJiXy0BALHYR9MD OEVHLEIYZtHVDTQYEC4ZVA EheVEsJBLpcaKSYaTOTS8H QUNILCBFUllUSEVNQSwgRU 9GZ9FZI5IFQfAGMMKKG3SS DWBQZ2GDJFFHTvyzTFGjwY EcVV7hV3pALvUJNsBSBZOO G0YcF9iQBYMNRMjFOPRIZj 9XDJJdCP5FX2UTBsDlK4NG VFJJVElTIEFORCBWRVJZIE OPK8HVILPNPCdRVBJMAUEb ciAgICAgICAgICAgICAgLS SRMM5ZJqUaSMAWPRSGDWFQ V56QCSQGQF9UHMXRBKERUM JUTFkgREVOVURFRCBXUElU STDWLQEGBAJqucl6SKUuXZ BXQVJUSElOIFNUQVJSWSBT VEFJTiBORUdBVElWRSBGT1 LwIT7oMSjCL9ETBFbPB6Nq Q0PRMB1BI05WCGBxkzh0IA PmTXGDTAnOBBfYLYUSC1Zu ZZ5HQVHJOT5EXIFBYIPSHI xRQ3rFMIVFRDLZFTLMNCRk Q0AkQ4LNS0wOO31RZHBava 59KWY5GkTfy7G6VCJ0YZNf RDDlw3acCCPneVIbTxUjBr NcZnRuYmpcdWMxXGRlZmYw u1sxu495nSAph5gmYMZbPx G7lTDaMORedCQfD192UJSd TLdye4umv2IrOHLcgXOcc8 V8TPXOymjcsYo8xWvcG95b b8Z3EwpcB9yuGOZwZJGsV1 ScDG5oDKKnDer6USO1HCK9 NCPyQGXuA0SzAD5vFOMltG JdHKg8j3odqRjnYOJeFRG1 z1wwXZqsihPhJY2gjw3xvS g7m4bjnvWmSZGxNIPysZAG OFZsH4MpzEofPn0rcMz9hE mnLepbFPQ2Gjj8DS6wgs54 eer9zKmuOCPyhsguOmR0QY tbEHTlzduhFVe4PRpbKSQm oUN6KXQpbBQxC6PeVBUgDR 4lrpe0BAF8AMroQXApWqX1 NDBcaGVhZGVyeTcyMFxmb2 38ZST5SlTeOZ0pM4Pzw6V8 dZ4iaIFiJIShpJLvJcRnDL Erpa8oqVHzPXouk1TuGSC1 nuE2iEEubUBmTUEpDuL6JS qzNK8jmc92WKAaKFD1hn6d bGNccGdicmRyaGVhZFxwZ2 EbYPJsu842ALVjX5ZaYSQs w5J4bvSsHdQsBCHwkGH1he X3ISOsIN7httpbq6vtFKpk HUpzRGXgfoU1dsI9FFCysL JsN0FbcB9gVLDsCL2ogfci a9juKSI6VIgvWWWxJHR3Ce LuQUDok7Nmxgw7LsLyl2To lFBsICbnZ44ar213OAXqry SiB1ikmTGtzrubuBTacnun ZVbivtT3PFFeBQdoggelNL JoBPsvB6mrWlYaHPJsaZgi QHffx5UaAFMzPIJiEdRumF SwXJIsZqw2GYMpwAPkCQHl EqLbB1nwgozrYjSSOPApi6 lgY8uvxTROaKUnB1SzKQif hdPvVDwcJMblJUWiUYG7EO 38EBaeGNVhgb19 CPT Code(s) (test code i1aioRBmHACftQZ8XlGbCX = 3357) Pkm2wxh2HwcCRowRFhFWkz mONpngBepr48oFT2kQ36WG 1vBXWjDcI0ONMaecM7Gpe3 YFSzVGBtaPHmL716r6gid3 tdctApxFD8qMzrBPUqYLTi YWluXGZzMjAgODgzMDUgWC PvBBZ1YIXeUmRBCkumAVO4 CLINICAL HISTORY (test x7cipRGmKVRooLV4AkYhFP code = 3356) Uqn6psf9LucMWmnWOyQQom eTAjmzFhxo47uSE2kC74RS 1eZYCoVwY2GNFxjoU2Xng2 YRZvDUDbfAKgF770w7gkx6 hqwjBswUA8rPjtOOZjNURn HZvdSABuNxKxiZCgCK4dBE Bhcn0= SPECIMEN SOURCE (test m7bhtSVrFDGuhMV9DpQqKG code = 3377) Bhh3sfp5GqlQEhcTLxEJdh fIOiphKvag99nTJ6iW57BH 4iNLEvPyK5APKyqaB1Ywd2 WOEyTVBmqHJsR375u5ftb1 xghaInbPV9hRwwVNWnZFBu VFkkKBUoPhKiDU6eIGquy9 YksGXukGnsMQNEOgLgX5Dx nBEvW1uaBTV0 GROSS DESCRIPTION (test x8cxdLFnHYUewCXvLuUrNH code = 3366) AiTUClm7hlKWLgpGCaQxTv MzNcZnRuYmpcdWMxXGRlZm Bdd1rfv056pEQph6azXFPx TeK3pRCzMFEjgFBhE271d2 egg9mppeMrjWS6CDSrNHR1 JEchnsRxonE1RGpmlXBnQd L0TWyjrmShJTsymgXmwoMd Psf0XPZiW677VSN9xDjwx3 qtMAV8TDWhSSUdWrHrNn2i nDEnU570WBDkBJGRRHLnaR t1FIBzrnRsvcNweGYTi041 F354m3owMGHubjBrcCmYjw yhu6qpY250GEQzpBWccmTc LuEtNUGwgKZckGU5YFOgAF 2mhwhpLxZhHD1vcriwXtAx XE4jghb6EjIhYW7smedbMh AgYIpqLJEhfgplAAFeg5Ki fovfQK9oZ3Fmj3U4cX0mtA JyVQBnnXTdKnDyYPWrrd3b cBEjXAfiu7DfSQB6hyF3cC LyiDLcCCBtNZ00Bnzug1Ht FqcmROP3XVRbirBqu0Uah7 vhOdRwomNuJ2eiN5NtLXJh PGUoRYTrJcDdrkUmo3Mjw1 BzbPWcnMg7r5kdOHCqXCAa pJgvj8aqMGV5VBDoU1X5mQ Bmn4zuDAlrHXBldYJ2dzwh DGoiBDFkqmC5bvqyDJduKY NqgIN4epmoTUaaYITfRlK5 rhfpEWkcXHRnCON4GHqgb5 83ZOB8TUqiXnadHMlvKBZz bmNvbnRccGduZGVjXHBsYW luXHBsYWluXGYwXGZzMjRc gAzgoOunzS3wRoYdMvZuJA dxNJ9nFJEmQ8vnqLEgAZBa NQUmI6yyApXatV8jgXmmDZ xmczIwIEEuICBSZWNlaXZl SOQxfiPam0LgPGbbevYpXV VirLHtQZToHXLoRFYoBM04 R8JmcrLjVRanVKOrKPWewD 2cZX40xDIjaaIfrbClGfmn o9XrwFWcFdurjCP0JfGxvq HtUUE8DJ5saDbdrgP3oMQy mVLyJtLsN52drfWmZC0nKP A4odcjQvP6gVR0qzZxUmOa G51smO1rT7UtZBTqe4OoSL qyHV3ynB6xNSphyYFaOEAo VMTduDy4DIYdMGKqtqSul1 QykEb8aFBlARcqNBDxyL1r kE0xXTDoTRFxlngkBSMkNx 7uDCTrX5UyhoGpLOakXPNa ha8vrSrxVSqxHnJdUHYzsE lgTJFyrFsediPyozEeUB1g NWKiU9Vtz0Vhl71vkdBgDv FlSUOcPGKeH4RidDKiKrJi aXMgYSAwLjIgeCAwLjIgeC XuIaYbH99tmCHiRWJvywsp yCdww7ViMRZkZXzhNU76OH doaWNoIGlzIGZpbHRlcmVk IWPdAITyiKLtyKO7JVYkgV 2hjD64ahEymnLFPV6uxIEm PBAeugKPgEuomqOSzqy4BF xsZXMsIFBBLCBIVCAoQVND UClccGFyfQ== MICROSCOPIC DESCRIPTION p9qucFGdDJNfxTA4DaKdMV (test code = 3371) Zqc8yiy7HnnFKqpMWzQGzk bUAtdrNcas36lHS4iA29LO 2qJKZbRaO4AZCffgY2Hzm4 MVXgTPYrvUWwB287n5krr1 uxurHbyKH9qIlrUSApYBAm WDxcXGHjFbFyOWMtDr2haN VkLlxwYXJ9 SPECIAL STUDIES (test z0rpgNAySEDgu8lrQHRxkO code = 3376) FuZzEwMzNcZnRuYmpcdWMx XXhodwBxJMbqh1JkM9CoBh AwMFxhbnNpXGRlZmxhbmcx NOVkJUZ5poBhBALwZJwvSP ZcGWflVs3qtJIpiUlbSoDx KUZia3kaqpXBmgfxlRw0g1 lqKTLrLgE3gUOkXXsuJ9iw llRngBFhD1YphNKzoXl2m7 uwIbPgUkO1mKBmCZizD1zj ywVzqYReJYHsWHq4aN34OC EqhR8gwRMkVIjkwjJgBdT9 NEsjQEDtGyK6TBRgzFJjKM GjV0ofZVLqSNsbFUDuIWfg bIYxRSE1vVgzy0X2cVNcbS JanRmrRtAdAaVtIsQDt7Iy CQj7nVsgW8ZfDELoSqU0xW QgUGFyYWdyYXBoIEZvbnQ7 hZbbmiSef09wlJEaBOJoIV LgZyGwpCzzNXMpSYBPb4Zh fLmtGZZ6fHy6pPbaFpcsBX A5Rsg8QV9bus61vwu9sOis TJOpqcqyPoH3RXyqCDRlpm qsGZi2EDozGZPmkON7ZSHq zBMfW7IrNLFmYU3rwkp2PW U8PGvoOBUlCdZ8XUGieXFz EGDytYpiDOpyj236CRO4Vj QoYF0eS0Pep8P3yJ0jeMMk XYLwkUMlOtXhXPEktl9ovI XeJOnka4MvRFS3svX8eGEc xFTwVLIwGB45Inpgl9UjIa wbq6WxV81kwGZ9DUsva0sl HL2fHwC8gjKmFFppu7vrrZ 2fRyR7MCggTW3qFT9dISXa xU6kewdrKDSfJcCmmggnYJ NkfTobmxPgXc5gbUikBYH4 RYwwU9wqeF3zXwB3XBzdW9 owcX2fMVg6QHcraCW9MKFn oU2mPC7qfypbp7miDQpyDN ysSAQldbH6yeH2JWScbZWr P0GeqQ3tREYfVW8gjxvqh9 bdVKC2EVrsAFKiOMI1GtSe HTCuy1Lbgyn3LcHny9AgkZ BmBWtdP90fv286VNWdjjQm F9aedJZtbxmejLCnjlvqCA afdgS6PQMfBWSbVFcyQQVd XGZzMjJcbGFuZzEwMzNcaG ljaFxmMVxkYmNoXGYxXGxv Q4yvPvIbY9WnYNFoYoLrVE ahIViqeNRfsMUocFO2pN3r YK0tZBWttJKkX5OhYXCxzi KrmFQfFBZ7dOKevVCrYB8z DCadvIGbo6keu6CvJ0kdhW qehYI6MF3cYOTmJPLgPNug x4WjqN3oDqnemBNwijhrPW xmczIyXGxhbmcxMDMzXGhp U3dqKsFpRWLnnMlqMRhgv1 NoXGYxXGNmMlxmczIyXGx0 cmNoXHBhclxwYXJccGxhaW 5bArYjHeOzUkxeIA1vWYIa C4rigPPuVLBlIUYdE1gxVb KihG4klNyoNZywTbYtRgQp PsKJj687rv5iZHVenQYohi LCrPSwbG4uGSyaGQvpEUzx sRQbQXpri5ujPCGdd1u1sH UsTAGofcHji0tzYZzetxTl SUVovJRwqNPyQYZnt76fDK mqdCyvyMtrWLWiu4TznJcc v4AjBrFnVLavt2PdW24qiR JvbCBzbGlkZXMgcnVuIGFs p46yo8qpGAHaEsD2fTWfxY K2mJCswJEvg6LjxNbvPVZc v7oqNQUbbj6vrklgiCHbu1 FimA6qzhbuSPbncBJpnyLe SVWmx3h2mCOqIQYyLENcPY repMn7EFNel822ea3zkdO3 gKPzNPX6HDpgUKJuFWCqby UgZXZhbHVhdGVkXHBsYWlu XGYxXGZzMjJcbGZzEwz NcaGljaFxmMVxkYmNoXGYx RWfuJ7tsJvOpZ4DjEGJnCq HybVBnV7wunHAuMVUmQTts XGYxXGZzMjJcbGFuZzEwMz NcaGljaFxmMVxkYmNoXGYx GMlmU0prGjHwP2VsQGLjQb IgIFxwbGFpblxmMVxmczIy YMfugrukPDDcKLxrW3ttRs XeFSWlwDdxOMttd1LiZQSm LKKxTzwmruTcEEp3fdHmMT BhclxwbGFpblxmMVxmczIy DRheewzdVABeSGuhA3uuHd NtOPDmyIwjQNcfq6BlOVZi XGNmMlxmczIyIEltbXVub2 dpu3ZqJ2wmjLwcbTB5JRSv M9prcDZxkFW2JTN6rZ0nOC bbiuHyDAXrr0LpSTUfYYHy DbR6rG4sCKH2NsOPxSmdNR BsYWluXGYxXGZzMjJcbGFu ZzEwMzNcaGljaFxmMVxkYm UtZMZeXHtoE7tcZgFgZ0Yr VYPsVqCynJoeOArkASj2Uk xwbGFpblxmMVxmczIyXGxh wexqTLCtFVneA6otQaZqJL TqtCynFXsoc9VbLTMzKOWw MlxmczIyIHMgTWVkaWNhbC SOMP67DORrTYUgnHujxN0a fUJHIRTmkhM7b2F7FCvwXM DcGWz9NJvcrhWvFCDnuI5a MATgTU2rMTb4raQlUTWeh3 LkMV6cNMKbuSSbTMM8WRMx d9NzN9Orl4ZbPMHcGHQonu 1yeqUwXrAXxPOpRGXxgc03 AGSjJK9tK8ciIGZfMIZiof JymEYkk5CqOMUodHL0dATo VU3UChXFj98rLOBdFUKEbl XrXPCqpIntpIQ4yjN2kY2h LiBUaGUgRkRBIGhhcyBkZX Fmks5czxVzMSXpWKBwy5Vx wDLbtKXkikNkR5Kaq4TvVL Ustm16LBoccUCjks46VY2m X0Jac5FpmS7sWRkmBVIxg2 KcvYBrdOJkWKEwx5XzV9op sgroIVvwkZTeeS3qKHRwBS h9XISdd7ExLUVey6QpTwFj ibCpJSHhVENyLNJthQ90TF U6bYhnwGcakfLiJM6cFDWh etLzGWOiJLBeoJ8uKUnley FtJKOrycJ2m6Z5ICqdYSSx iaRiHpinIVQ4kdOmslZ4kJ PlD9lbduucQFtsHNAja6Ve hU1byQEInPSfz6LxjJVawY EBoIYiPE5sosKzOR1hUHW9 ODggKENMSUEtODgpIGFzIH H2CPfmRjfnCGH5zjYsEPDy r5NdIEidK9vaT42gjBfulJ j6uYEwoRdmbMYltBSwBLVa hpI1q1I3UWAcx2SiuanbMK BsYWluXGYyXGZzMjJcbGFu ZzEwMzNcaGljaFxmMlxkYm CsPFWrSQdyY3qeNfDxCyHn SevxSGS9cM== Gross assessment was [facility] performed at (formerly [facility], = 2777) Department of Pathology, [address] [place] [address], Technical component was [facility] performed at ([facility], = 2778) Department of Pathology, [address] [place] [address], Professional component [facility] was performed at ([facility], code = 2779) Department of Pathology, [address] [place] [address], [facility] [id number] 14:24:00Surgical Pathology Report Case: [id number] Authorizing Provider: Sarkis Laboy, Collected: 10/01/2020 09:43 AM OrderingLocation: [place] [address] ccu Received: 10/01/2020 01:48 PM Pathologist: Pa [...] OR CARCINOMA Signing Pathologist Direct Phone Line: [phone] signed by Pa Peters MD on 10/02/2020 at 2:24 [id number] X 2, [id number] [id number]. GastricB. GastricA. Received in formalin labeled the [...] Immunohistochemistry technical testing was performed at [facility], Pathology Laboratory where it was developed [...] to perform high complexity clinical laboratory testing.[facility], Department of Pathology, [address] [place] [address], [facility], Department of Pathology, [address] [place] [address], LsmgpnNorth[facility] sandra, Department of Pathology, [address] [place] [address], ITPZ-GLUCOSE [id number] 11:33:00 Test Item Value Reference Range Interpretation Comments POC-GLUCOSE METER 124 mg/dL 70-110 H : TESTED A T [facility] 6720 (Transfercar) (test code = [facility], 1538) [address]: District Recruiter/Techni min ID = [id number] for Jaswinder Jefferson POCT-GLUCOSE [id number] 08:15:00 Test Item Value Reference Range Interpretation Comments POC-GLUCOSE METER 106 mg/dL 70-110 : TESTED A T [facility] 6720 (Transfercar) (test code = [facility], 1538) [address]: District Recruiter/Techni min ID = [id number] for Jaswinder Jefferson Comprehensive metabolic [id number] 05:17:00 Test Item Value Reference Range Interpretation Comments Protein, Total (test 6.1 See_Comment [Autom ated code = 2885-2) message] The system which generated this result transmit altagracia reference range : 6.0 - 8.3 gm/dL . The reference range was not u sed to interpret th is result as normal/abnormal . Albumin (test code = 2.6 g/dL 3.5-5 L 72390-3) Alkaline Phosphatase 85 U/L 40-150 (test code [...] (test code = 7.7 mg/dL 8.4-10.2 L 60417-4) AST (test code = 17 U/L 5-34 1920-8) ALT (test code = 9 U/L 6-55 1742-6) EGFR (test code = 35 mL/min/1.73 [place] [address]-8) NOT ACCURATE CREATININE CLEARANCE IN PREDICTING GLOMERULAR FILTRATION RATE . ESTIMATED GFR I S NOT APPLICABLE FOR DIALYSIS PATIEN TS. ELIANA (test code = ELIANA) District Recruiter ID - EDASI Lab Interpretation Abnormal (test code = 92246-1) [facility] [id number] 05:17:00 Test Item Value Reference Range Interpretation [...] S NOT APPLICABLE FOR DIALYSIS PATIEN TS. District Recruiter ID - EDASICBC W/PLT COUNT & AUTO [id number] 04:32:00 Test Item Value Reference Range Interpretation [...] PERCENT (BEAKER) (test code = 2801) POCT-GLUCOSE [id number] 21:36:00 Test Item Value Reference Range Interpretation Comments POC-GLUCOSE METER 146 mg/dL 70-110 H : TESTED A T [facility] 6720 (BEAKER) (test code = DEVON SMITH, 1538) [address]: District Recruiter/Techni min ID = [id number] for Johana Vasquez Hemoglobin [id number] 15:28:00 Test Item Value Reference Range Interpretation Comments Hemoglobin A1C (test code = 4548-4) 5.6 % 4.3-6.1 Lab Interpretation (test code = Normal 82785-4) [facility] [id number] 15:28:00 Test Item Value Reference Range Interpretation Comments HEMOGLOBIN A1C (BEAKER) (test code = 5.6 % 4.3-6.1 368) CBC W/PLT COUNT & AUTO [id number] 12:44:00 Test Item Value Reference Range Interpretation [...] PERCENT (BEAKER) (test code = 2801) POCT-GLUCOSE [id number] 11:11:00 Test Item Value Reference Range Interpretation Comments POC-GLUCOSE METER 125 mg/dL 70-110 H : [facility] (BEAKER[facility] (test code = [facility] [employer] [facility], 1538) [address]: District Recruiter/Techni min ID = [id number] for BE LL, BEAULA Vancomycin level, [id number] 10:39:00 Test Item Value Reference Range Interpretation Comments Vancomycin Rm (test 4.8 ug/mL code = 60296-8) ELIANA (test code = Reference Range: No ELIANA) NormalsOperator ID - COLBY Rodriguez [facility]ANCOM[facility]CIN LEVEL, [id number] 10:39:00 Test Item Value Reference Range Interpretation Comments VANCOMYCIN RANDOM (BEAKER) (test 4.8 ug/mL code = 523) Reference Range: No NormalsOperator ID - COLBY CPOCT-GLUCOSE [id number] 08:38:00 Test Item Value Reference Range Interpretation Comments POC-GLUCOSE METER 119 mg/dL 70-110 H : [facility] (BEAKER) (test code = [facility] [employer] [facility], 1538) [address]: District Recruiter/Techni min ID = [id number] for BE LL, BEAULA SARS-CoV2/RT-PCR (Asymptomatic ONLY)2020-10-01 08:13:00 Test Item Value Reference Range Interpretation Comments SARS-COV2/RT-PCR Negative Not Detected, (test code = Negative, See 98288-3) external report for linked test SARS-COV-2 [facility] PERFORMING LAB (test code = 40160-3) ELIANA (test code = Negative result for [...] of the Act. Fact Sheet for Healthcare Providers:https://www.PO-MO/sites/default/f dorys/product/documents/F act_Sheet_HC_Providers_L pcl_DUJJ-OzW-9.pdf Fact Sheet for Healthcare Patients:https://www.Yododo/sites/default/fi les/product/documents/Fa ct_Sheet_Patients_Lyra_S ARS-CoV-2.pdf Performing Laboratory:[facility] [place] [address] [facility])2020-10-01 08:13:00 Test Item Value Reference Range Interpretation Comments SARS-COV2/RT-PCR (test Negative Not Detected, Negative, code = 0898253) See external report for linked test SARS-COV-2 PERFORMING LAB [facility] (test code = 3904594) Negative result for this test determines that [...] 564(g) of the Act.Fact Sheet for Healthcare Providers:https://www.ARPUidel.com/sites/default/files/product/documents/Fact_Shee y_BD_Parxnpmvl_Jvfj_UNSV-VtA-6.pdfFact Sheet for Healthcare Patients:https://www.ARPUidel.com/sites/default/files/product/ documents/Jbns_Axjtx_Ahozdylk_Utgi_NOOB-KrQ-2.pdfPerforming Laboratory:[facility], [place] [id number] 06:20:00 Test Item Value Reference Range Interpretation Comments Ferritin (test code = 61.09 ng/mL 5-140 2276-4) ELIANA (test code = ELIANA) District Recruiter ID - ASHLEIGH L Lab Interpretation (test Normal code = 46830-6) [facility] HospitalVitamin B12 and [id number] 06:20:00 Test Item Value Reference Range Interpretation Comments Vitamin B12 (test 267 pg/mL 213-816 code = 2132-9) Folate (test code = 11.30 ng/mL See_Comment [Automa altagracia 2284-8) message] The system which generated this result transmit altagracia reference range : >=7.00. The reference range was not used to interpret this result as normal/abnormal . ELIANA (test code = ELIANA) District Recruiter ID - ASHLEIGH L Lab Interpretation Normal (test code = 07246-0) [facility]IN[facility] 06:20:00 Test Item Value Reference Range Interpretation Comments FERRITIN (BEAKER) (test code = 61.09 ng/mL 5.00-275.00 361) District Recruiter ID - ASHLEIGH LVITAMIN B12 AND [id number] 06:20:00 Test Item Value Reference Range Interpretation Comments VITAMIN B12 267 pg/mL 213-816 (BEAKER) (test code = 774) FOLATE (BEAKER) 11.30 ng/mL See_Comment [Automated message] (test code = 362) The system which generated this result transmitted ref erence range: >=7.00. The reference range was not used to interpr et this result as normal/abnormal . District Recruiter ID - ASHLEIGH George, TIBC, % sat. (without ferritin)2020-10-01 06:04:00 Test Item Value Reference Range Interpretation Comments Iron (test code = 2498-4) 17.0 ug/dL 40-160 L TIBC (test code = 2500-7) 323 ug/dL 250-450 Iron % Saturation (test 5 % 20-55 L code = 2502-3) ELIANA (test code = ELIANA) District Recruiter ID - ASHLEIGH L Lab Interpretation (test Abnormal code = 77961-7) [facility], TIBC, % SAT. (WITHOUT FERRITIN)2020-10-01 06:04:00 Test Item Value Reference Range Interpretation Comments IRON (BEAKER) (test code = 547) 17.0 ug/dL 40.0-160.0 L TOTAL IRON BINDING CAPACITY 323 ug/dL 250-450 (BEAKER) (test code = 769) IRON % SATURATION (2) (BEAKER) 5 % 20-55 L (test code = 2590) District Recruiter ID - PIAYA LPOCT-GLUCOSE [id number] 05:23:00 Test Item Value Reference Range Interpretation Comments POC-GLUCOSE METER 116 mg/dL 70-110 H : TESTED A T [facility] 6720 (BEAKER) (test code [facility], = 1538) [address]: District Recruiter/Techni min ID = [id number] for JUNIE ALICIA CBC W/PLT COUNT & AUTO [id number] 03:26:00 Test Item Value Reference Range Interpretation [...] (BEAKER) (test code = 2801) COMPREHENSIVE METABOLIC [id number] 03:22:00 Test Item Value Reference Range Interpretation [...] S NOT APPLICABLE FOR DIALYSIS PATIEN TS. District Recruiter ID - DBCBC W/PLT COUNT & AUTO [id number] 20:14:00 Test Item Value Reference Range Interpretation [...] PERCENT (BEAKER) (test code = 2801) POCT-GLUCOSE [id number] 20:12:00 Test Item Value Reference Range Interpretation Comments POC-GLUCOSE METER 134 mg/dL 70-110 H : TESTED A T [facility] 6720 (BEAKER) ([facility] [address]: District Recruiter/Techni min ID = [id number] for CORRY CASAS JUNIE CBC (HEMOGRAM ONLY)2020-09-30 [...] 0-0 (BEAKER) (test code = 413) POCT-GLUCOSE [id number] 14:32:00 Test Item Value Reference Range Interpretation Comments POC-GLUCOSE METER 106 mg/dL 70-110 : TESTED A T [facility] 6720 (WENDI) (test code = [place], 1538) [address]: District Recruiter/Techni min ID = [id number] for CHUY SWANN HEMOGLOBIN [id number] 11:57:00 Test Item Value Reference Range Interpretation Comments HEMOGLOBIN A1C (WENDI) (test code = 5.6 % 4.3-6.1 368) U/S, ABDOMINAL, [id number] 11:53:00Abdomen limited area? Add comment if clarification is needed.->Right upper quadrantReason for exam:->liver cirrhosis; ETOH abuse [facility] : 1950 Sex: MFINAL [...] MDReport Verified Date/Time: 09/30/2020 11:53:08 US abdomen [id number] 11:53:00Interface, External Ris In - 09/30/2020 11:55 [...] signedby: CAITY HERNADEZ MD on 09/30/2020 11:53 [facility] Reflex to Culture 2020-09-30 10:53:00 Test Item Value Reference Range Interpretation Comments Color, UA (test code Light Yellow = 5778-6) Clarity, UA (test Clear code = 5767-9) Specific Pana, UA 1.014 1.001-1.035 (test code = 5811-5) pH, UA (test code = 6.0 5.0-8.0 5803-2) Protein, UA (test 200 mg/dL Negative A code = 34512-9) Glucose, UA (test 50 mg/dL Negative A code = 365) Ketones, UA (test Negative Negative code = 2514-8) Bilirubin, UA (test Negative Negative code = 56104-7) Blood, UA (test code Small Negative A = 14694-6) Nitrite, UA (test Negative Negative code = 5802-4) Leukocytes, UA (test Negative Negative code = 5799-2) Urobilinogen, UA 0.2 mg/dL 0.2-1 (test code = 46949-9) RBC, UA (test code = 1 See_Comment [Autom ated 56615-7) message] The system which generated this result [...] . Bacteria, UA (test Few code = 52468-9) Mucus (test code = Few 8247-9) Squam Epithel, UA 1 See_Comment [Automate d (test code = 36527-2) messag e] The system which generated this result transmit altagracia reference range : /HPF. The reference range was not used to interpret this result as normal/abnormal . Hyaline Casts, UA 6 See_Comment [Automate d (test code = 59104-8) duarte e] The system which generated this result transmit altagracia reference range : /LPF. The reference range was not used to interpret this result as normal/abnormal . Specimen Source (test code = 2795) ELIANA (test code = ELIANA) District Recruiter ID - [auto]District Recruiter ID - tech Lab Interpretation Abnormal (test code = 77074-0) [facility] [id number] 10:53:00 Test Item Value Reference Range Interpretation [...] = 514) SOURCE(BEAKER) (test code = 2795) District Recruiter ID - [auto]District Recruiter ID - techLactic acid, [id number] 10:00:00 Test Item Value Reference Range Interpretation Comments Lactate, Venous (test code 1.08 mmol/L 0.5-2.2 = 2872) ELIANA (test code = LEIANA) District Recruiter ID Eulalio SOTELO L Lab Interpretation (test Normal code = 20625-0) [facility], [id number] 10:00:00 Test Item Value Reference Range Interpretation Comments LACTATE BLOOD VENOUS (2) (BEAKER) 1.08 mmol/L 0.50-2.20 (test code = 2872) District Recruiter ID Eulalio SOTELO LCBC W/PLT COUNT & AUTO [id number] 09:53:00 Test Item Value Reference Range Interpretation [...] = 2801) RAD, CHEST, 1 VIEW, NON [id number] 09:06:00Reason for exam:->? sob [facility] : 1950 Sex: MFINAL REPORT INDICATION: ? sob COMPARISON: None TECHNIQUE: Single fro ntal view of the chest. FINDINGS: Lungs and pleura: Clear lungs. No effusion.Heart and mediastinum: Normal heart size. Unremarkable mediastinal contours.Osseous structures: No acute abnormality.Other: None. IMPRESSION: No acute intrathoracic abnormality. Signed: Nahed Cleary MDReport Verified Date/ Time: 09/30/2020 09:06:18 Reading Location: [facility] Radiology Reading Room XR chest 1 view portable / [id number] 09:06:00Interface, External Ris In - 09/30/2020 9:24 AM CDTFINAL REPORT INDICATION: ? sob COMPARISON: None TECHNIQUE: Single frontal view of the chest. FINDINGS: Lungs and pleura: Clearlungs. No effusion.Heart and mediastinum: Normal heart size. Unremarkable mediastinal contours.Osseous structures: No acute abnormality.Other: None. IMPRESSION: No acute intrathoracic abnormality. Sign ed: Nahed Clearyepjohn Verified Date/Time: 09/30/2020 09:06:18 Reading Location: [facility] Radiology Reading Room [facility] COMPREHENSIVE METABOLIC [id number] 07:47:00 Test Item Value Reference Range Interpretation [...] S NOT APPLICABLE FOR DIALYSIS PATIEN TS. District Recruiter ID - [id number] 07:07:00 Test Item Value Reference Range Interpretation Comments PTT (test code = 91507-0) 25.1 See_Comment [ Automated message] The system [employer] generated this result transmitted ref erence range: 22.5 - 3 6.0 seconds. The re ference range was not u sed to interpret this result as normal/abnor mal. Lab Interpretation (test Normal code = 87673-1) [facility]PROT[facility]OM[facility]/[id number] 07:07:00 Test Item Value Reference Range Interpretation Comments PROTIME (WENDI) 14.2 seconds 11.9-14.2 (test code = 759) INR ([facility]) (test 1.13 See_Comment [Automat ed message] code = 370) The system [employer] generated this result transmitted ref erence range: <=5.90. The reference range was not used to int erpret this result as normal/abnormal . Effective 12/11/2018: PT Reference Range ChangeNew: 11.9-14.2 Previous: 11.7- 14.7RECOMMENDED COUMADIN/WARFARIN INR THERAPY RANGESSTANDARD DOSE: 2.0-3.0 Includes: PROPHYLAXIS for venous thrombosis, systemic embolization; TREATMENT for venous thrombosis and/or pulmonary embolus.HIGH RISK: Target INR is2.5-3.5 for patients wiht mechanical heart valves.[id number] 07:07:00 Test Item Value Reference Range Interpretation Comments PARTIAL THROMBOPLASTIN TIME 25.1 seconds 22.5-36.0 (NELAKER) (test code = 760) POCT-GLUCOSE [id number] 06:39:00 Test Item Value Reference Range Interpretation Comments POC-GLUCOSE METER 150 mg/dL 70-110 H : TESTED A T [facility] 6720 (WENDI) (test code [facility], = 1538) [address]: District Recruiter/Techni min ID = [id number] for JUNIE ALICIA [id number] 00:00:00Ordered by an unspecified provider.[facility])2020-01-26 13:29:00 Test Item Value Reference Range Interpretation Comments SARS-COV2/RT-PCR (test code = Negative Not Detected, Negative 3942208) SARS-COV-2 PERFORMING LAB [facility] (test code = 4767168) Negative result for this test determines that [...] 564(g) of the Act.Fact Sheet for Healthcare Providers:https://www.ARPUidel.com/sites/default/files/product/documents/Fact_Shee s_EE_Nfixubhtk_Ieiu_YFLU-XqY-6.pdfFact Sheet for Healthcare Patients:https://www.[employer].com/sites/default/files/product/ documents/Nzwy_Cabos_Uzkuxaie_Bawt_VETT-OwY-2.pdfPerforming Laboratory:[place] [id number] [place] [address]
--- NOTE | 2020-12-14 19:56 | ER ---
Nurse's Notes [facility] [place] Name: Amaury Matamoros Age: 69 yrs Sex: Male : 1950 Arrival Date: 12/14/2020 Time: 15:25 Bed Waiting Private MD: Diagnosis: Presentation: 12/14 16:04 Chief complaint: Patient states: Bilateral leg swelling x 13 days since being released jl7 from the hospital. Denies CP, SOB, N/V/D. Coronavirus screen: Client denies travel out of the [place] in the last 14 days. At this time, the client does not indicate any symptoms associated with coronavirus-19. Ebola Screen: No symptoms or risks identified at this time. Initial Sepsis Screen: Does the patient meet any 2 criteria? No. Patient's initial sepsis screen is negative. Does the patient have a suspected source of infection? No. Patient's initial sepsis screen is negative. Risk Assessment: Do you want to hurt yourself or someone else? Patient reports no desire to harm self or others. Onset of symptoms was November 30, 2020. Care prior to arrival: None. 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 - Social history:: Smoking status: Patient denies any tobacco usage or history of. Vital Signs: 16:04 BP 123 / 78; Pulse 70; Resp 19; Temp 97.8; Pulse Ox 97% ; jl7 ED Course: 15:25 Patient arrived in ED. ds1 16:06 Triage completed. jl7 16:06 Arm band placed on right wrist. Patient placed in waiting room, Patient notified of jl7 wait time. 19:55 Patient's name was called from ER lobby. No response. Unable to locate patient. Will bb disposition as left without being seen by a provider. Administered Medications: No medications were administered Outcome: 19:55 Patient left the ED. bb Signatures: Alana Harrell ds1 Shanna Jones RN RN bb Lane, Jahala, RN RN jl7
[2020-12-14 20:17] VITALS: BP 123/78; TEMP 97.8; O2SAT 97
== END 2020-12-14 19:55 | disposition left against medical advice (07) ==
LOC: ER 15:03
DX: R22.43 Localized swelling, mass and lump, lower limb, bilateral (principal); Z53.21 Procedure and treatment not carried out due to patient leaving prior to being seen by health care provider
CPT/HCPCS: 99281

== ENCOUNTER 2020-12-15 10:01 | Emergency (ER) | payer OTHER ==
--- OUTSIDE RECORDS SUMMARY | 2020-12-15 10:06 | XMS REPORT | Continuity of Care Document ---
:1950 Author Organization [facility] t Address [address] [place] [address] Care Team Providers Name Role Phone Lynda Espinoza MD Attending Clinician Niranjan Jackson MD Attending Clinician Lynda ESPINOZA Attending Clinician Unavailable Narda MAXWELL, Eric Attending Clinician Jose Ross MD Attending Clinician Lynda ESPINOZA Admitting Clinician Unavailable Payers Payer Name Policy Type Policy Effective Date Expiration Date Sour ce Number [facility] [id number] [facility] MGD CAREWELLCARE 00:00:00 - Medica l [id number]/08/04 Center 21-Present Problems Condition Condition Condition Status Onset Resolution Last Treating Co mments Source Name Details Category Date Date Treatment Clinician Date 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 00:00: Me dical site site 00 [place] Liver Liver Disease Active [facility] cirrhosis cirrhosis - [facility] - 00:00: Medical 00 [place] Portal Portal Disease Active [facility] hypertensi hypertensi -21 Estrella kes - ve ve 00:00: Medical gastropath gastropath 00 Ce nter y y GI bleed GI bleed Disease Active [facility] 3-18 [facility] - 00:00: Medical 00 [place] Allergies, Adverse Reactions, Alerts Allergy Allergy Status Severity Reaction(s) Onset Inactive Treating Comm ents Source Name Type Date Date Clinician Penicill Drug Active Rash [facility] Allergy 12[facility]13 [facility] - 00:[facility]: Medical 00 Center Penicill Adverse Active Info Not [facility] t amine Reaction Available [facility] Social History Social Habit Start Date Stop Date Quantity Comments Source Sex Assigned At [facility] Tobacco use and 2020-10-04 2020-10-04 Never used [facility] exposure 00:00:00 00:00:00 [facility] Alcohol intake 2020-10-04 2020-10-04 Current drinker [facility] Elvis hewitt [facility] - 00:00:00 00:00:00 of alcohol [facility] (finding) Smoking Status Start Date Stop Date Source Current every day smoker 2020-10-04 00:00:00 [facility] Medications Ordered Filled Start Stop Current Ordering Indication Dosage Frequency Signature Comments Components Source Medication Medication Date Date Medication? Clinician (SIG) Name Name amLODIPine 2021- Yes 2.5mg QD Take [address] (NORVASC) 10-04 tablet [facility] - 2.5 MG 00:00: 23:59 (2.5 mg Medical tablet 00 :00 total) by Center mouth daily. pantoprazol Yes 40mg Q.5D Take [address] e 10-03 tablet (40 [facility] - (PROTONIX) 00:00: mg [...] [address] [facility] Mera [facility] Hydrochloro Hydrochloro Yes Alfonzo [address] thiazide thiazide Mera in the Luke s - morning [facility] Pantoprazol Pantoprazol Yes Alfonzo [address] e Sodium e Sodium Mera [facility] Metoprolol Metoprolol Yes Alfonzo [address] Tartrate Tartrate Mera with food [facility] Ferrous Ferrous Yes Alfonzo [address] Sulfate Sulfate Mera [facility] Amlodipine Amlodipine Yes Alfonzo [address] Besylate Besylate Mera [facility] Gabapentin Gabapentin Yes Alfonzo [address] Mera [facility] Metformin Metformin Yes Alfonzo [address] HCl HCl Mera with a [facility] - meal [facility] Vital Signs Vital Name Observation Time Observation Value Comments Source Systolic blood 2020-10-03 19:17:00 111 mm[Hg] [facility] Diastolic blood 2020-10-03 19:17:00 61 mm[Hg] [facility] Heart rate 2020-10-03 19:17:00 75 /min [facility] Body temperature 2020-10-03 19:17:00 36.94 Latesha [facility] Respiratory rate 2020-10-03 19:17:00 17 /min [facility] Oxygen saturation in 2020-10-03 19:17:00 98 /min [facility] - Arterial blood by Medical Ce nter Pulse oximetry Body weight 2020-10-03 07:05:00 51.982 kg [facility] BMI 2020-10-03 07:05:00 20.96 kg/m2 [facility] Body height 2020-09-30 05:22:00 157.5 cm [facility] Procedures Procedure Date / Time Performed Performing Clinician Sourc e POCT-GLUCOSE METER 2020-10-03 18:09:00 Alice Jackson [facility] HEPATITIS B PCR, 2020-10-03 15:49:[address] [facility] HEPATITIS C PCR, 2020-10-03 15:49:[address] [facility] POCT-GLUCOSE METER 2020-10-03 11:48:00 Alexis Jacksonurad [facility] POCT-GLUCOSE METER 2020-10-03 08:34:[address] [facility] CBC W/PLT COUNT & AUTO 2020-10-03 04:35:00 Nate Fields [facility] CBC (HEMOGRAM ONLY) 2020-10-03 04:35:00 Delmi Peguero [facility] BASIC METABOLIC PANEL (7) 2020-10-03 04:35:00 Delmi Peguero [facility] ACTIN (SMOOTH MUSCLE) 2020-10-03 04:35:00 [facility], IGG [facility] ALPHA FETOPROTEIN (AFP), 2020-10-03 04:35:00 [facility] TUMOR MARKER [facility] [id number]\\, 2020-10-03 04:35:00 [facility] SERUM [facility] ANTI-NUCLEAR ANTIBODY 2020-10-03 04:35:00 [facility] - (GAMAL) [facility] BILIRUBIN, DIRECT 2020-10-03 04:35:00 Wendy [facility] CERULOPLASMIN 2020-10-03 04:35:00 [facility]TIBODY, IGG 2020-10-03 04:35:00 Wendy [facility] HEPATITIS B SURFACE 2020-10-03 04:35:00 Wendy, Delfinaq [facility] S t [facility] - ANTIBODY [facility] HEPATITIS B SURFACE 2020-10-03 04:35:00 [facility] ANTIGEN [facility] HEPATITIS B CORE 2020-10-03 04:35:00 Wendy[facility] - ANTIBODY, TOTAL [facility] HEPATITIS C ANTIBODY 2020-10-03 04:35:00 [facility] MITOCHONDRIA M2 ANTIBODY 2020-10-03 04:35:00 [facility] (IGG) [facility] PROTHROMBIN TIME/INR 2020-10-03 04:35:00 [facility] POCT-GLUCOSE METER 2020-10-02 21:19:00 Alice Jackson [facility] CBC W/PLT COUNT & AUTO 2020-10-02 17:29:00 Nate Fields [facility] VANCOMYCIN LEVEL, TROUGH 2020-10-02 17:29:00 Severo Martinez [facility] POCT-GLUCOSE METER 2020-10-02 17:24:00 Alice Jackson [facility] POCT-GLUCOSE METER 2020-10-02 11:21:00 Alice Jackson [facility] POCT-GLUCOSE METER 2020-10-02 08:03:00 Alice Jackson [facility] CBC W/PLT COUNT & AUTO 2020-10-02 03:39:00 Naet Fields [facility] COMPREHENSIVE METABOLIC 2020-10-02 03:39:00 Delmi Peguero [facility] POCT-GLUCOSE METER 2020-10-01 21:23:00 Alice Jackson [facility] HEMOGLOBIN A1C 2020-10-01 14:34:00 Delmi Peguero [facility] CBC W/PLT COUNT & AUTO 2020-10-01 12:08:00 Adrienne Ortiz [facility] - DIFFERENTIAL [facility] POCT-GLUCOSE METER 2020-10-01 10:58:00 Alice Jackson [facility] REPORT OF PROCEDURE - 2020-10-01 10:35:58 Sarkis Laboy [facility] ENDOSCOPY [facility] VANCOMYCIN LEVEL, RANDOM 2020-10-01 10:06:00 Meghann Grier [facility] TISSUE EXAM 2020-10-01 09:43:00 Narda [facility] UPPER ENDOSCOPY,BIOPSY 2020-10-01 09:14:00 Narda [facility] POCT-GLUCOSE METER 2020-10-01 08:23:00 Alexis Jacksonurad [facility] POCT-GLUCOSE METER 2020-10-01 05:11:00 Alexis Jacksonurad [facility] VITAMIN B12 AND FOLATE 2020-10-01 04:42:00 Laney Ford [facility] IRON, TIBC, % SAT. 2020-10-01 04:42:00 Ford Espinoza Rhys [facility] (WITHOUT FERRITIN) [facility] 2020-10-01 04:42:00 Ford Espinoza [facility] CBC W/PLT COUNT & AUTO 2020-10-01 02:44:00 Adrienne Ortiz [facility] - DIFFERENTIAL [facility] SARS-COV2/RT-PCR ([facility] & 2020-10-01 02:44:00 Nate Fields Ma [facility] - REF LABS) [facility] COMPREHENSIVE METABOLIC 2020-10-01 02:44:00 Nate Fields [facility] CBC W/PLT COUNT & AUTO 2020-09-30 20:01:00 Adrienne Ortiz [facility] DIFFERENTIAL [facility] POCT-GLUCOSE METER 2020-09-30 20:00:00 Alice Jackson [facility] CBC (HEMOGRAM ONLY) 2020-09-30 15:15:00 Nate Fields CH, I [facility] POCT-GLUCOSE METER 2020-09-30 14:20:00 Alice Jackson [facility] US ABDOMEN LIMITED 2020-09-30 11:32:00 Ford Espinoza [facility] BLOOD CULTURE 2020-09-30 09:45:00 [facility] CBC W/PLT COUNT & AUTO 2020-09-30 09:22:00 [facility] BLOOD CULTURE 2020-09-30 09:22:00 [facility] LACTIC ACID, VENOUS 2020-09-30 09:22:00 [facility] URINALYSIS W/ REFLEX 2020-09-30 09:22:00 [facility] URINE CULTURE [facility] XR CHEST 1 VIEW 2020-09-30 08:39:00 Adrienne Ortiz [facility]/B[facility] HEMOGLOBIN A1C 2020-09-30 06:52:[address] [facility] POCT-GLUCOSE METER 2020-09-30 06:27:00 Ford Espinoza [facility] PROTHROMBIN TIME/INR 2020-09-30 06:22:00 Malcolm Hernandez CH, I [facility] APTT 2020-09-30 06:22:[address] [facility] COMPREHENSIVE METABOLIC 2020-09-30 06:22:00 Malcolm Hernandez [facility] REPORT OF PROCEDURE - 2020-09-30 00:00:00 Provider, Default [facility] - ENDOSCOPY SCAN Scanning [facility] SARS-COV2/RT-PCR ([facility] & 2020-01-25 19:40:[address] [facility] - REF LABS) [facility] Plan of Care Planned Activity Planned [...] - Test 00:00:00 [facility]procedure) [code = 579901178] Encounters Start End Encounter Admission Attending Care Care Encounter Source Date/Time Date/Time Type Type Clinicians Facility Department ID 2020-06-24 2020-06-24 Outpatient [facility] [id number] 2020-06-03 2020-06-03 Outpatient [facility] [id number] [facility] 2020-05-25 2020-05-25 Outpatient [facility] [id number] [facility] 2020-05-13 2020-05-13 Outpatient [facility] [id number] [facility] 2020-04-29 2020-04-29 Outpatient [facility] [id number] [facility] 2020-04-15 2020-04-15 [facility] [id number] 2020-04-15 2020-04-15 Outpatient [facility] [id number] [facility] 2020-04-07 2020-04-07 Outpatient [facility] [id number] [facility] 2020-03-26 2020-03-26 [facility] [id number] 09:10:00 09:10:00 t [employer] [facility] Outpati ent Clinics 2019-09-21 2019-09-21 [facility] [id number] 21:47:00 21:47:00 t [facility] Medicine Outpati ent Clinics 2019-09-19 2019-09-19 [facility] [id number] 13:30:00 13:30:00 t [facility] Medicine Outpati ent Clinics 2019-09-10 2019-09-10 [facility] [id number] 10:15:00 10:15:[address] [facility] Outpati ent Clinics 2019-06-20 2019-06-20 [facility] [id number] 13:20:00 13:20:00 t [facility] Medicine Outpati ent Clinics 2019-03-21 2019-03-21 [facility] [id number] 11:20:00 11:20:00 t [facility] Medicine Outpati ent Clinics Results [...] patients withautoimmune hepatitis (AIH) type 1, approxi xrxuql36% of patients with a utoimmune cholangitis,chitra roximately 30% of patients with p rimary biliarycirrhosi s, and approximately 2 % of healthy people.High jenni ues are closely correlated with AIH type 1. ELIANA (test code = Performing Lab ELIANA) EZ [employer] [facility] [address] [place] [address] Obdulia Ulrich MD, PhD, MARINA [facility] CenterCeruloplasmin2021-03-24 14:07:00 Test Item Value Reference Range Interpretation Comments Ceruloplasmin (test code 39 mg/dL 18-36 H = 20190906) ELIANA (test code = ELIANA) Performing Lab *JENNI [facility], [address] [place] [id number] Nereida Rocha MD Lab Interpretation (test Abnormal code = 22622-5) [facility] CenterMitochondria M2 Antibody (IgG)2020-10-06 13:29:00 Test Item Value Reference Range Interpretation Comments Mitochondria M2 Ab 20.3 U See Note: H Reference (test code = 6898989) Range: NEGATIVE: < OR = 20.0EQUIVOCAL: 20.1-24.9POSITI VE: > OR = 25.0 ELIANA (test code = ELIANA) Performing Lab EZ [employer] [facility] [address] [place] [address] Obdulia Ulrich MD, PhD, MARINA Lab Interpretation Abnormal (test code = 63668-3) [facility] Center[facility] Culture - Routine (Left Venipuncture) 2020-10-05 14:00:00 Test Item Value Reference Range Interpretation Comments Result (test code = No growth in 5 days 6463-4) [facility] CenterBLOOD [id number] 14:00:00 Test Item Value Reference Range Interpretation Comments CULTURE (BEAKER) (test No growth in 5 days code = 1095) BLOOD [id number] 11:00:00 Test Item Value Reference Range Interpretation Comments CULTURE (BEAKER) (test No growth in 5 days code = 1095) Hepatitis B PCR, [id number] 20:15:00 Test Item Value Reference Range Interpretation Comments HBV PCR, Quantitative HBV DNA not detected HBV DNA not (test code = 64497-2) detected ELIANA (test code = ELIANA) This test uses a Real-Time Polymerase Chain Reaction (RT-PCR) methodology and was performed using MADONNA AmpliPrep/MADONNA TaqMan HBV Test, v2.0 ([employer] Reportable range for this assay is 20 - 170,000,000 IU per mL (1.30 - 8.23 Log IU/mL). Lab Interpretation Normal (test code = 24663-9) [facility]HE[facility]LA[facility]ALT[facility] B PCR, [id number] 20:15:00 Test Item Value Reference Range Interpretation Comments HBV RESULT COMPONENT HBV DNA not detected HBV DNA not detected (BEAKER) (test code = 2701) This test uses a Real-Time Polymerase Chain Reaction (RT-PCR) methodology and was performed using [employer] AmpliPrep/[employer]NA TaqMan HBV Test, v2.0 ([employer]Reportable range for this assay is 20 - 170,000,000 IU per mL (1.30 - 8.23 Log IU/mL).Hepatitis C PCR, [id number] 19:56:00 Test Item Value Reference Range Interpretation Comments HCV PCR, Quantitative [id number] See_Comment H [Auto mated (test code = 26145-3) messag e] The system which generated this result transmitted reference range : <15 IU/mL. The reference range was not used to interpret this result as normal/abnormal . ELIANA (test code = ELIANA) This test uses a Real-Time Polymerase Chain Reaction (RT-PCR) methodology and was performed using [employer] Ampliprep/[employer] TaqMan HCV test kit version 2.0 ([employer] Reportable range for this assay is 15 - 100,000,000 IU per mL (1.18 - 8.00 Log IU/mL). Lab Interpretation Abnormal (test code = 75815-1) [facility], [id number] 19:56:00 Test Item Value Reference Range Interpretation Comments HCV NUMERIC RESULT (BEAKER) 303450 IU/mL <15 H (test code = 2700) This test uses a Real-Time Polymerase Chain Reaction (RT-PCR) methodology and was performed using [employer] Ampliprep/MAD[employer]NA TaqMan HCV test kit version 2.0 ([employer]Reportable range for this assay is 15 - 100,000,000 IU per mL (1.18 - 8.00 Log IU/mL).Anti-Nuclear Antibody (GAMAL) 2020-10-04 12:41:00 Test Item Value Reference Range Interpretation Comments GAMAL (test code = 49591-9) Negative Negative ELIANA (test code = ELIANA) Test performed by IFA method. Lab Interpretation (test Normal code = 43688-4) [facility] CenterANTI-NUCLEAR ANTIBODY (GAMAL)2020-10-04 12:41:00 Test Item Value Reference Range Interpretation Comments ANTI-NUCLEAR ANTIBODY (GAMAL) (BEAKER) Negative Negative (test code = 418) Test performed by IFA method.POC-Glucose [id number] 18:23:00 Test Item Value Reference Range Interpretation Comments POC-Glucose Meter (test 127 mg/dL 70-110 H : TE STED AT [facility] code = 1538) 67[address] [facility], 770 30: Knowledge Management Consultant/Techni min ID = [id number] for Igbalajobi, She neto Lab Interpretation (test Abnormal code = 14775-4) [facility] CenterPOCT-GLUCOSE [id number] 18:23:00 Test Item Value Reference Range Interpretation Comments POC-GLUCOSE METER 127 mg/dL 70-110 H : TESTED A T [facility] 67[address] ([facility]) (test code = [facility], 1538) [address]: Knowledge Management Consultant/Techni min ID = [id number] for Igbalajobi, She neto POCT-GLUCOSE [id number] 12:00:00 Test Item Value Reference Range Interpretation Comments POC-GLUCOSE METER 78 mg/dL 70-110 : [facility] (test code = [facility], 1538) [address]648: Knowledge Management Consultant/Techni min ID = [id number] for Kassandra Woods Hepatitis B core antibody, [id number] 10:45:00 Test Item Value Reference Range Interpretation Comments Hep B Core Total Ab (test Reactive Nonreactive A code = 86959-1) ELIANA (test code = ELIANA) Knowledge Management Consultant ID - DBOperator ID - DBOperator ID - DB Lab Interpretation (test Abnormal code = 54974-6) [facility] CenterHEPATITIS B CORE ANTIBODY, [id number] 10:45:00 Test Item Value Reference Range Interpretation Comments HEPATITIS B CORE TOTAL ANTIBODY Reactive Nonreactive A (BEAKER) (test code = 497) Knowledge Management Consultant ID - DBOperator ID - DBOperator ID - DBPOCT-GLUCOSE [id number] 08:50:00 Test Item Value Reference Range Interpretation Comments POC-GLUCOSE METER 83 mg/dL 70-110 : TESTED A T [facility] 67[address] (BEAKER) (test code = [place], 1538) [address]: Knowledge Management Consultant/Techni min ID = [id number] for Kassandra Woods [id number] 08:30:00 Test Item Value Reference Range Interpretation Comments A-1 Antitrypsin (test 189.40 mg/dL 90-200 code = 1825-9) ELIANA (test code = ELIANA) Knowledge Management Consultant ID - DBOperator ID - DBOperator ID - DB Lab Interpretation (test Normal code = 69326-8) [facility] [id number] 08:30:00 Test Item Value Reference Range Interpretation Comments ALPHA-1 ANTITRYPSIN (BEAKER) 189.40 mg/dL 90.00-200.00 (test code = 502) Knowledge Management Consultant ID - DBOperator ID - DBOperator ID - DBHepatitis A antibody, IgG 2020-10-03 07:01:00 Test Item Value Reference Range Interpretation Comments Hep A IgG (test code = Reactive Nonreactive A 74306-8) ELIANA (test code = ELIANA) Knowledge Management Consultant ID - DB Lab Interpretation (test Abnormal code = 23039-0) [facility] CenterHEPATITIS A ANTIBODY, [id number] 07:01:00 Test Item Value Reference Range Interpretation Comments HEPATITIS A IGG ANTIBODY (BEAKER) Reactive Nonreactive A (test code = 2797) Knowledge Management Consultant ID - DBHepatitis C [id number] 06:59:00 Test Item Value Reference Range Interpretation Comments Hepatitis C Ab (test code = Reactive Nonreactive A 33470-4) ELIANA (test code = ELIANA) Knowledge Management Consultant ID - DB Lab Interpretation (test Abnormal code = 49744-1) [facility] CenterHEPATITIS C [id number] 06:59:00 Test Item Value Reference Range Interpretation Comments HEPATITIS C ANTIBODY (BEAKER) (test Reactive Nonreactive A code = 367) Knowledge Management Consultant ID - DBBasic Metabolic [id number] 06:38:00 Test Item Value Reference Range Interpretation [...] (test code = 7.8 mg/dL 8.4-10.2 L 66228-6) EGFR (test code = 39 mL/min/1.[address] [place] [address]-4) NOT ACCURATE CREATININE CLEARANCE IN PREDICTING GLOMERULAR FILTRATION RATE . ESTIMATED GFR I S NOT APPLICABLE FOR DIALYSIS PATIENTS. ELIANA (test code = ELIANA) Knowledge Management Consultant ID - EDASI Lab Interpretation Abnormal (test code = 50310-6) [facility] CenterBilirubin, [id number] 06:38:00 Test Item Value Reference Range Interpretation Comments Bilirubin, Direct (test 0.2 mg/dL 0.1-0.5 code = 1968-7) ELIANA (test code = ELIANA) Knowledge Management Consultant ID - EDASI Lab Interpretation (test Normal code = 56948-9) [facility] CenterBILIRUBIN, [id number] 06:38:00 Test Item Value Reference Range Interpretation Comments BILIRUBIN DIRECT (BEAKER) (test 0.2 mg/dL 0.1-0.5 code = 706) Knowledge Management Consultant ID - EDASIBASIC METABOLIC [id number] 06:38:00 Test Item Value Reference Range Interpretation [...] 697) EGFR (BEAKER) (test 39 mL/min/1.73 ESTIMA JOYA GFR IS code = 1092) sq m NOT ACCURATE CREATININE CLEARANCE IN PREDICTING GLOMERULAR FILTRATION RATE . ESTIMATED GFR I S NOT APPLICABLE FOR DIALYSIS PATIEN TS. Knowledge Management Consultant ID - EDASIHepatitis B surface [id number] 06:14:00 Test Item Value Reference Range Interpretation Comments Hep B S Ab (test code <8.0 See_Comment [Auto mated = 50435-7) message] The system which generated this result transmit joya reference range : <8.0 mIU/mL. Th e reference range was not used to interpret this result as normal/abnormal . ELIANA (test code = ELIANA) Knowledge Management Consultant ID - DB Lab Interpretation Normal (test code = 26798-0) [facility] CenterHEPATITIS B SURFACE [id number] 06:14:00 Test Item Value Reference Range Interpretation Comments HEPATITIS B SURFACE ANTIBODY < mIU/mL <8.0 (BEAKER) (test code = 647) Knowledge Management Consultant ID - DBHepatitis B surface [id number] 06:13:00 Test Item Value Reference Range Interpretation Comments HBsAg Screen (test code Nonreactive Nonreactive = 5195-3) ELIANA (test code = ELIANA) Specimen is considered negative for HBsAg. Lab Interpretation (test Normal code = 30213-6) [facility] CenterAlpha fetoprotein (AFP), tumor [id number] 06:13:00 Test Item Value Reference Range Interpretation Comments Alpha-Fetoprotein (test code 2.1 ng/mL <10.0 = 1834-1) ELIANA (test code = ELIANA) Knowledge Management Consultant ID - DB Lab Interpretation (test Normal code = 80220-0) [facility] SUR[facility] [id number] 06:13:00 Test Item Value Reference Range Interpretation Comments HEPATITIS B SURFACE ANTIGEN (2) Nonreactive Nonreactive (BEAKER) (test code = 2585) Specimen is considered negative for HBsAg.ALPHA FETOPROTEIN (AFP), TUMOR MARKER 2020-10-03 06:13:00 Test Item Value Reference Range Interpretation Comments ALPHA-FETOPROTEIN (BEAKER) (test 2.1 ng/mL <10.0 code = 1094) Knowledge Management Consultant ID - DBProthrombin time/JBO5630-17-41 05:06:00 Test Item Value Reference Interpretation Comments Range Protime (test code = 14.4 See_Comment H [Autom ated 0912-2) message] The system which generated this result transmitted reference range : 11.9 - 14.2 seconds. The reference range was not used to interpret this result as normal/abnormal . INR (test code = 1.16 See_Comment [Automated 2534-6) message] The system which generated this result [...] valves. Lab Interpretation Abnormal (test code = 90722-0) [facility]OM[facility]/[id number] 05:06:00 Test Item Value Reference Range Interpretation Comments PROTIME (BEAKER) 14.4 seconds 11.9-14.2 H (test code = 759) INR (BEAKER) (test 1.16 See_Comment [Automat ed message] code = 370) The system [employer] generated this result transmitted ref erence range: [...] 8.8 See_Comment [A utomated message] The system [employer] generated this result transmitted ref erence range: 3.5 - 10 .5 K/L. The refe rence range was not u sed to interpret this result as normal/abnor mal. RBC (test code = 789-8) 2.56 See_Comment L [Au tomated message] The system [employer] generated this result transmitted ref erence range: 4.63 - 6 .08 M/L. The refe rence range was not u sed to interpret this result as normal/abnor mal. MCHC (test code = 786-4) 31.8 See_Comment L [A utomated message] The system [employer] generated this result transmitted ref erence range: [...] See_Comment [Aut omated message] 777-3) The system [employer] generated this result transmitted ref erence range: 150 - 45 0 K/CU MM. The referen ce range was not u sed to interpret this result as normal/abnor mal. MPV (test code = 10.2 fL 9.4-12.4 40404-6) nRBC (test code = 413) 0 See_Comment [Aut omated message] The system [employer] generated this result transmitted ref erence range: 0 - 0 /1 00 WBC. The refere nce range was not u sed to interpret this result as normal/abnor mal. Lab Interpretation (test Abnormal code = 90137-3) [facility] with platelet count + automated [id number] 04:58:00 Test Item Value Reference Range Interpretation Comments WBC (test code = 6690-2) 8.8 See_Comment [A utomated message] The system [employer] generated this result transmitted ref erence range: 3.5 - 10 .5 K/L. The refe rence range was not u sed to interpret this result as normal/abnor mal. RBC (test code = 789-8) 2.56 See_Comment L [Au tomated message] The system [employer] generated this result transmitted ref erence range: 4.63 - 6 .08 M/L. The refe rence range was not u sed to interpret this result as normal/abnor mal. MCHC (test code = 786-4) 31.8 See_Comment L [A utomated message] The system [employer] generated this result transmitted ref erence range: [...] See_Comment [Aut omated message] 777-3) The system [employer] generated this result transmitted ref erence range: 150 - 45 0 K/CU MM. The referen ce range was not u sed to interpret this result as normal/abnor mal. MPV (test code = 10.2 fL 9.4-12.4 98281-1) nRBC (test code = 413) 0 See_Comment [Aut omated message] The system [employer] generated this result transmitted ref erence range: [...] H [Aut omated message] 670) The system [employer] generated this result transmitted ref erence range: 1.78 - 5 .38 K/L. The refe rence range was not u sed to interpret this result as normal/abnor mal. # Lymphs (test code = 0.86 See_Comment L [Auto mated message] 414) The system [employer] generated this result transmitted ref erence range: 1.32 - 3 .57 K/L. The refe rence range was not u sed to interpret this result as normal/abnor mal. # Monos (test code = 0.72 See_Comment [Autom ated message] 415) The system [employer] generated this result transmitted ref erence range: 0.30 - 0 .82 K/L. The refe rence range was not u sed to interpret this result as normal/abnor mal. # Eos (test code = 416) 0.12 See_Comment [Au tomated message] The system [employer] generated this result transmitted ref erence range: 0.04 - 0 .54 K/L. The refe rence range was not u sed to interpret this result as normal/abnor mal. # Baso (test code = 417) 0.02 See_Comment [A utomated message] The system [employer] generated this result transmitted ref erence range: 0.01 - 0 .08 K/L. The refe rence range was not u sed to interpret this result as normal/abnor mal. Immature 1 % 0-1 Granulocytes-Relative (test code = 2801) Lab Interpretation (test Abnormal code = 91860-9) [facility] W/PLT COUNT & AUTO [id number] 04:58:00 Test Item Value Reference Range Interpretation [...] 0-0 (BEAKER) (test code = 413) POCT-GLUCOSE [id number] 21:32:00 Test Item Value Reference Range Interpretation Comments POC-GLUCOSE METER 128 mg/dL 70-110 H : TESTED A T [facility] (BEAKER) (test code = [place], 1538) [address]: Knowledge Management Consultant/Techni min ID = [id number] for Lien Mansfield Vancomycin level, [id number] 18:09:00 Test Item Value Reference Range Interpretation Comments Vancomycin Tr (test code 6.3 ug/mL 10-20 L = 4092-3) ELIANA (test code = ELIANA) Knowledge Management Consultant ID - DBIf vancomycin trough level > 20 mcg/mL, hold next vancomycin dose, and contact MD and pharmacist. Lab Interpretation (test Abnormal code = 95898-2) [facility] CenterVANCOMYCIN LEVEL, [id number] 18:09:00 Test Item Value Reference Range Interpretation Comments VANCOMYCIN TROUGH (BEAKER) (test 6.3 ug/mL 10.0-20.0 L code = 522) Knowledge Management Consultant ID - DBIf vancomycin trough level > 20 mcg/mL, hold next [facility]com[facility] dose, [facility]T [facility] & AUTO DIFFERENTIAL 2020-10-02 [...] PERCENT (BEAKER) (test code = 2801) POCT-GLUCOSE [id number] 17:36:00 Test Item Value Reference Range Interpretation Comments POC-GLUCOSE METER 124 mg/dL 70-110 H : TESTED A T [facility] (BEAKER) (test code = DEVON Serrato [place], 1538) [address]: Knowledge Management Consultant/Techni min ID = [id number] for Jaswinder Jefferson Tissue [id number] 14:24:00 Test Item Value Reference Range Interpretation Comments Case Report (test code Surgical Pathology = 104) Report Case: [id number] Authorizing Provider: Sarkis Laboy, Collected: 10/01/2020 09:43 AM Ordering Location: [place] [address] ccu Received: 10/01/2020 01:48 PM Pathologist: Pa Peters MD Specimens: A) - Biopsy, Gastric, random biopsy B) - Gastric, gastric erythema biopsy DIAGNOSIS (test code = b2gxqNAvHQVnr0tpYAIqmN 3220) FuZzEwMzNcZnRuYmpcdWMx IHtccnRmMVxlcGljOTIwMl tskhDoQTMawVXwO6Sjzrtr SIcqWM7vUP1jcUpsmHIbeZ IcOSJbHcZdp5vyo578jOUc y8hwEVIPjvqblOa5uZqkZ2 1fc2J4QxifB16ncDUbJXrj bGFpblxmczIwIEEuIFNUT0 6GR9rmRWJDCeCIWFVYIhDF P1REDNtYOG9VK87PJYegPc mGIPYHPZS8LPMtcai1BGTe GOJBTmQQUCpyUNJVC9NLFG dJVEggTUlMRCBDSFJPTklD PTuQXTMEMMPKGOgDX3MULH TXOqIHZkYbOk6AVBgpNJ7X NKALCN5VXKZUGZUAZDoPY7 fUFKKykgx2DOKhIMIMPTmQ NWeXBC4WQ32SKQFOAZFEXZ 4LCYQgH6ePP12JTsNBPfKG VElWRSBHQVNUUklUSVMgV0 mKVOYLV5BFTKNSL3QLKthI GDroKAXcuZYqRX1nZ3EERV rUKcBAVBSEOmqgP0PBUY5p CdVYARSLTwCxLi1XINxsDN QZUU2XIDRHDChAUI5JZ2RZ HDAXE5vnKOLbnYCqZP4eXe BLRRCXDxSsBp0DKYOFP2CM QPJZREGOYaPUMNVKRD1DFP UnwZGwNCCirlIIHlNJRG7F QUNILCBFUllUSEVNQSwgRU 4PN4RZL5ZFUlVWFIBFZ9JR FRAWG1KKJECOMqytXBAlhT XiBN3nZ3fVGhSINvXFEGOF E9QtI9yDHSRSGJtVBSNQZb 5RJXDsZA4ZI9EVXtReO5MT VFJJVElTIEFORCBWRVJZIE LBJ1LMRBHOZLyOYGZUMVQd ciAgICAgICAgICAgICAgLS EEUO0OZlXlTEXYQXBBKCIQ F91WNDFDET4OQIHYKNBBRQ JUTFkgREVOVURFRCBXUElU WMCNYRGZRLVzdhv2HZEsTZ BXQVJUSElOIFNUQVJSWSBT VEFJTiBORUdBVElWRSBGT1 BdRA3kBTcIM3YMNJmTH7Qz M7LJUT2GM31WRLXftmd6AR HkFKKVLUiAGZwITGSVV6Ee QF1ATNVMYX2ZEAZNTRRXVA dCV2hAWNCQQFSFBNSTXZJy C7MhK8JPS0qSR70LZZJlyy 92OMG5EcHyz3C7SPO1PWJv JJBjw5zvAFSdtQIlIyFsLs NcZnRuYmpcdWMxXGRlZmYw y8dmi287oREtt0jlOMQrBp Z4lRLmQXZflLGyU557DPLe VEmyh5hdq7DoVXFmmIDih9 F4XANJubvqnJu6jQsqB38t i3N4IopsV2zwIPFuEVTqX6 GfYH9iZDTrXgv5TDQ2RTQ5 GQUbWZAbI9FsAZ4kZKJpoH RgREd9w2lmwYwnRGQrDKR8 q6iyMZeczjFwFV5srd5hqI z1w7zbgwRyFZWxEWEtsKIM QSZfI0SnuNmoCl1adTo9wC ilOqhlZTA9Lma7WC6uva18 yww8kRmwGLZknletOzB3TZ lkQBLyttheUYp5ZPwvRKFu gYH8MCBvtZNnQ9YnRBIxFM 8vmnn6RJT3QNsjJBNwWiS4 NDBcaGVhZGVyeTcyMFxmb2 00ZIM3WqYkJK9vJ8Jzw1O0 zT0iaMDjMZSipRAcOxSnMD Xctn4hqRPtQBvnb1NfXHA5 ytV3aDYtxNXpPBLsSaA0VJ kbJJ6egd91MVChEFM4wg2x bGNccGdicmRyaGVhZFxwZ2 FrXMXcg651FMFgM0JhYVOc o7P9tgVkFbSeQZGfbQZ5gd Z6WSHqNN3fqvngy5nrXYct DXqkFHJgxkQ5fkA1XUEuoU QnX7OpfH3lOHFeJM0ojwks p6kiYQE1ICyeDGYfUYC3Lv WzAMYik3Asowe5ByWlk2Mg xGDeMPvmX92yf337MBUqsb WuJ4cddNYavnyfbMEshfnn EHfsdfG2UKBjWDibiiimHM BqFKhaF7ktGxGnSWStiNoe LIyoa1MdDRRcICMyUvGukO OvPKYgLyy8GFDhtLDxMJFd UdAnH1rcfvnaSeHIFUJcy9 tdU6sptLLZjPMuL0IdSLsu tlRgONidSZyvWTLgOFA9KE 93MBnkXMEepp57 CPT Code(s) (test code h9gszBBwWTNuvLL0YuOpKY = 3357) Fvn4nbs4ScfHIgyZAhMLbk qKAoydQbqs16fYN5wV77AP 5zTNBfAyD2VLWkfqZ4Xtg1 CBNiWKDeqAVgS840b8ihi3 cgngSzaFT2pPzxWMNoWEIm YWluXGZzMjAgODgzMDUgWC RmNON6BQNrZyGXSgrqAOD5 CLINICAL HISTORY (test x6wgzUPzPKVjuWE9IpNeIK code = 3356) Tcr8lxi1FfhOYyxICeCDes sYPfcyKlyj09iAP3fY77ZN 7cWDDdGmD4LKDkqtV1Lne2 OHWdYOShhYYhD954z0qsq8 hcqyTsjTE7mOjiLGZsKLAz DJnhEQVyYgZjjHLfLX3sAT Bhcn0= SPECIMEN SOURCE (test s3klyLBaZKTnnXF8RdYtML code = 3377) Ibc9dso0CsjBIagBIbPVvg aLPqlzXlfj55lVZ3iS49YV 9mURZeFkY6EJRtwdQ8Wcd0 ULUiMRJgtLAzD694d8sjt2 jdwoPhoRH7bJggEJSqUAMx VDjfWJFsWlLcNM3rSIpec5 BgpNDwsZejWOVQKuEvY0Nd oEAzY7lbUTE3 GROSS DESCRIPTION (test f9xpkJNzHUWwbBKmBmVwGO code = 3366) JqJSJwo8fmEEXurAWaJmFb MzNcZnRuYmpcdWMxXGRlZm Azg9ppi446bNGqf5dxLCEr UlW2hZHkMSBcrGIuP124y5 tug6cjceLaeVQ8AXVvZQZ9 BOxsusCknvH1KFdwnNIwRq O4QOnuzwGiLQulrnUxscWr Fvk8JZTqI818UQA4aGldx8 ivBAD5YDCbXVJyHvPtLr4e hTYmO540KLVrZNGAKKJicT z1WOUnauMnhpEuhORLa323 R970y7vcOGOcawQaiHyZvz dwz0ryM429POPebWEqzaTf UyRfXNDguCKrhQO1APIaUT 1tahdoDuKaRF5kqwdzOxNt GH2vypb3QgYmCQ5ontbjVf HoNWnhKLFwhwyiKAXeh5Uf bsvoIO4pT5Qpt4U9wI2fiO PrXQAhpXIeKvOxJRQifj6p zKTnXLewt2RpEIU5vlD0sD FrzLNzEJKgQI33Ksnby8Ms OgfxCWW2GYLmvbBrj1Jdr6 xlHqYcodFgK7oxK2PcZQGe INHsKMJsYxMbunCdh1Mwx2 MucKSvmAd7y2ezWUGjOVRz hHxug0gqFYV6LBCsM7V9zG Ldq9dsYOflVEKsbEU5zxdx YVphHRWvawC9mdciTEwqTV ItjQC3rcjuOGryEHEmVyU5 rjnyGPdpKTYvXYY2FVmpg4 48TXI8AYddVfbsPSfeWBLw bmNvbnRccGduZGVjXHBsYW luXHBsYWluXGYwXGZzMjRc bAuxxRdyoG4hTjAbEvAqBR wiEO8hXIEoV6iqhNOvOAVk PJCsR8mtXkNvbH0wwIxsDO xmczIwIEEuICBSZWNlaXZl YWKfncDac9PcQNllkkUtOJ WlmFSqXYGuDPFiAKEaBD42 D4AmmpEnQCiyOOVuOLStqB 3aIM23hQDqknFefgChWnug t9WtjLCuQhbluQX8XfGnxd GyXXX8NC0joKcrlpB0kTKx iOTiHlSkX82kvoZuKX9kAB D4zaqzIbJ0kPW0xbHiJeQj Q62zdC5cJ9RkYDPac8RmLX eyYK4xeG8sXApcuGGfVZJg SYBruEs4DWFzHAJtirLvn7 KyaVl1hXJjUTnnNFTraJ8x qS1aLDQnUFPoeuooDZJyUg 2rHDOmK4HaomWfXGshJDUx ew6lwGxuEXuuKgRbIPAshS nzWNXmbZydvmXnyvTlGC0o PMZgG2Yxk0Cte85tffMqUf EeBSNnJNHxK9VtuQUiCvCw aXMgYSAwLjIgeCAwLjIgeC KwBxMwP55laFOhFWDtvegg lOnjw6YqVOHjNJpjIN92IM doaWNoIGlzIGZpbHRlcmVk ZODsLYZouRRtnDB4TYIuuF 9hjX69jsAztxXOKQ0efWXx HEZrsaKFpGiximKTodl2XK xsZXMsIFBBLCBIVCAoQVND UClccGFyfQ== MICROSCOPIC DESCRIPTION m2daoYQgFXFmnDC1JiVvMP (test code = 3371) Rey6beu9RccSKigFTuAXeb vUKplnDlte02hUY3uA70CB 0dURWxDxF5PSYhqkM6Wfz4 OFCeKWQutLOdX395h7jxs3 khbuDglUC9sLrmQXSgQZVd RNymFPVsSfGcADNzBk5aaA VkLlxwYXJ9 SPECIAL STUDIES (test t8dfoQVgDVNeq3stAFSxbU code = 3376) FuZzEwMzNcZnRuYmpcdWMx LTesczOsAYolm5TyV0GcRr AwMFxhbnNpXGRlZmxhbmcx SSRyFLM3zcCyOBPyWJoxLO RgNHchCr7dpNPwsIziWhWs OVIlu0zsroFLfcwpeUa4f5 klHEBiOnM1qFHzELidJ8jb ajIdmKQdB2AryUXliIt3l4 izHqRdUaU2wVIyOHsvE0uv gpRmoFUvUMWbHWc1aW08DK ZwbD9uqNDjRRztkxMdVlX6 XEujZQYsTqZ6UPHwqFEcTN AkT1afVJTfAQzmMZXuIYuy vCVpYPZ8vCxeu9X2hUJbkA VidPhyVbQwTiBcToLEq1Tm TXo8wDbeD0SdYKVjBbR2nA QgUGFyYWdyYXBoIEZvbnQ7 dEgkddCva99jfJElTAGhUD AoOgBgsEchIPTcJQFZs0Pg fOehPKH0xEi7wLevLcqoGH D0Ias1GX6dht03pdd2gKsm CNNskymkDaI6KZhgQYDqqn iwBUa3LScnFMDsmAD2YPRy xAOaK1TzRRHcAF6zppf7OU H6XIjvSDNuKtW0KQMoqGOh GBBgwKwlWImji418AWM8Kn YnWA3lH7Cgc6S7sG7hiFKa STJvfNXfPnFjVLIfnj2ibV XqPTavy2VnZCR1clR0aTKi bPBjYVWmPN24Bziik7KyIs wwu6ObH73gkIU5DJgrf8qk WU8hJhW5ppRrBGbhe4irlB 6cElP4FJxePR9hLZ1fLKEe gR3negpwVHHnFkBknnajGV JndDjxvnXeYu3ccPvsFZU2 AYehB9hfpS3eGkR0IWvdC4 jhmO7vGBu4GWdxxLH7KQXo mI2uFW4nfjttq0svTXcvGC buDXVtlpC1btS9GYHxjUPz I3TnyC9tGNQiNG1tyfdeo7 mbUMN3YLemCFDiCRD7GzVz YFSwo2Goxal4GnRlj1GtrX VyTYaqX33hn976HJLanuBa Z7cdlNPxwledmKDqwqixYE fefpG8GBZlBOGhOGytCPUc XGZzMjJcbGFuZzEwMzNcaG ljaFxmMVxkYmNoXGYxXGxv R2pzMyApG8LsXMUiBnRfSD alMKpqeXBexHWdxHV7eN2v FM9dADDjrNAcQ8CqEOPxgl IysUAuBAC7eDMtoCKjEG8q SLmuiQFxj8ili7BcD9snlT pfmNQ7IZ8fJAYgDJSiMUrh u9MlrM2sCtgioLQzixxpXM xmczIyXGxhbmcxMDMzXGhp J2nhWwUkJDUwiHvuRKlbw1 NoXGYxXGNmMlxmczIyXGx0 cmNoXHBhclxwYXJccGxhaW 5xObDzGhVxLigbHD3xDLGz W7bncUPaTEMdWZQdT1auDh PugW9scKonPYsdSlWbUaGl FdHYe326lj5tFJToeNKxgu IZnMIpjD0aURlsEYedNUxu sCEbBImau5kdEELbr9t8dZ QnNVOgzpEpk6plIRooxqKe DDKaaUTeqIVwEYCaf22tUN etmLrkfZrxAHWjk4LywGpg w7TtAzDbRShqz7AdC61neA JvbCBzbGlkZXMgcnVuIGFs p22pn5idMZDgSqY6nGLtbJ E5kBLixMBrj6ArxDboUFLo s8bgXGHssj9ihgjnnEEwh0 WmkJ7oskfwWNohfZIbrsRc WKMwe5u3aWLfZZXlHCGtRB zmuUh0TEKud227me9fxqK9 rUOeMNV3LNthMRSvRFOeiv UgZXZhbHVhdGVkXHBsYWlu XGYxXGZzMjJcbGZzEwMz NcaGljaFxmMVxkYmNoXGYx OOihP5wfNxDlD5FlCEDkSv WucEXlW3kthZKhDAFcBYqm XGYxXGZzMjJcbGFuZzEwMz NcaGljaFxmMVxkYmNoXGYx JVuaO9qiNlPgY4JmRBWxLs IgIFxwbGFpblxmMVxmczIy TZgpzrnwSFLlQSdtX7bdNj XaQPIseIhzNFchb8FgQZFx ZMPoBagajwFdDNp4nbEjTS BhclxwbGFpblxmMVxmczIy DYfzgmxgFICmJZzqK0ndHc RnNPJddAkaNLemh6TbFQWx XGNmMlxmczIyIEltbXVub2 koj8TuY1hpdCkpaUC6ZKLp I0keoOCqqPC9UIM4yG7oNE aclgUyWYOql5OpYCEnJLJa KcF5rB7wGHM6MiKAbMtlKU BsYWluXGYxXGZzMjJcbGFu ZzEwMzNcaGljaFxmMVxkYm AzWFGpASgcU0muOlEpH9Xw DGSpOqCnjCouNNhdXZt9Eu xwbGFpblxmMVxmczIyXGxh uzbpSVAjWHarS9arVhBsJX JwpCyeRMczm5PfVNLvUDNx MlxmczIyIHMgTWVkaWNhbC HQMW58OMPtDRXtrNjlbZ0x fBSTAZVmztP5t4A9MZgzBS AxXYw6LLchvfYiEYTfiE6g ORHxMV6xBLw3zfJrBWXat1 TvVK6xYIJyrKOlYBY7SRVk v6OaH3Mrl3HpGDFdNVUqxr 3fjpXrAxMAzPVpXVRhqr09 PPIuZW0bY2kdWZFdZEJahp CxkBDay0DvOAHjkWP0xDVw ZS1TNeFCp43sRMZdJCYAkm FvSKJvtDxtzIT8wyZ4uP2s LiBUaGUgRkRBIGhhcyBkZX Wqkj5ldaQiZIIkNKEls2Jr qOOjwQEukkAeB8Nhz6IfWJ Mdyh95TWriiSObyb81LE0h C5Awe9LulB8iCAvcKVEkm3 FktOZawNUaAXUnz7FfH7er erizGYgraXBmgW7sSFEySI h9AWSlq0MgYXRem7VyQkJh flNuBFBbOEZzVSIaxA73GV X7lIjnvBvqcfSdMP3hDIFy fbVwGRQoGBUznU5kEJrebf WiNNBvndL6d2A7WBjsVWMq pxDqYympHPS1pcTqfgY4qV RsP5aidxwwXMjuTHOfr2Ub rN0kiSEKhQYro2BpkTTvlB TLyQYoEP6mjxPzQM4zAWV4 ODggKENMSUEtODgpIGFzIH U8FSclXkxpROX6ijYcIKKb w5XqJXveS7piH98yeScmmF k2lXYniTusgZZosXXsFMQy gvU5d2L6CTLvj8NsraflJG BsYWluXGYyXGZzMjJcbGFu ZzEwMzNcaGljaFxmMlxkYm YvBDYtAPpkK3qlAyNwWhNa TdfeNFK7bI== Gross assessment was [facility] performed at ([facility], = 2777) Department of Pathology, [address] [place] [address], Technical component was [facility] performed at ([facility], = 2778) Department of Pathology, [address] [place] [address], Professional component [facility] was performed at ([facility], code = 2779) Department of Pathology, [address] [place] [address], [facility] CenterT[facility] [id number] 14:24:00Surgical Pathology Report Case: [id number] Authorizing Provider: Sarkis Laboy, Collected: 10/01/2020 09:43 AM OrderingLocation: [place] [address] ccu Received: 10/01/2020 01:48 PM Pathologist: Pa [...] OR CARCINOMA Signing Pathologist Direct Phone Line: [phone] signed by Pa Peters MD on 10/02/2020 at 2:24 [id number] X 2, [id number] A3gsaeivC. GastricB. GastricA. Received in formalin labeled the [...] evaluated Immunohistochemistry technical testing was performed at [facility], Pathology Laboratory where it was developed and [...] qualified to perform high complexity clinical laboratory testing.[facility], Department of Pathology, [address] [place] [address], [facility], [address] [place] [address], [facility], Department of Pathology, [address] [place] [address], LOGW-GLUCOSE [id number] 11:33:00 Test Item Value Reference Range Interpretation Comments POC-GLUCOSE METER 124 mg/dL 70-110 H : [facility] ([employer]lick[employer]) (test code = DEVON Serrato [facility], 1538) [address]: Knowledge Management Consultant/Techni min ID = [id number] for Jaswinder Jefferson POCT-GLUCOSE [id number] 08:15:00 Test Item Value Reference Range Interpretation Comments POC-GLUCOSE METER 106 mg/dL 70-110 : TESTED A T [facility] 6720 (WENDI) (test code = [place], 1538) [address]: Knowledge Management Consultant/Techni min ID = [id number] for Jaswinder Jefferson Comprehensive metabolic [id number] 05:17:00 Test Item Value Reference Range Interpretation Comments Protein, Total (test 6.1 See_Comment [Autom ated code = 2885-2) message] The system which generated this result transmit joya reference range : 6.0 - 8.3 gm/dL . The reference range was not u sed to interpret th is result as normal/abnormal . Albumin (test code = 2.6 g/dL 3.5-5 L 10155-9) Alkaline Phosphatase 85 U/L 40-150 (test code [...] (test code = 7.7 mg/dL 8.4-10.2 L 06476-8) AST (test code = 17 U/L 5-34 1920-8) ALT (test code = 9 U/L 6-55 1742-6) EGFR (test code = 35 mL/min/1.[place] [address]-7) NOT ACCURATE CREATININE CLEARANCE IN PREDICTING GLOMERULAR FILTRATION RATE . ESTIMATED GFR I S NOT APPLICABLE FOR DIALYSIS PATIEN ELIANA (test code = ELIANA) Knowledge Management Consultant ID - EDASI Lab Interpretation Abnormal (test code = 90889-1) [facility] [id number] 05:17:00 Test Item Value Reference Range Interpretation [...] 347) EGFR (BEAKER) (test 35 mL/min/1.73 ESTIMA JOYA GFR IS code = 1092) sq m NOT ACCURATE CREATININE CLEARANCE IN PREDICTING GLOMERULAR FILTRATION RATE . ESTIMATED GFR I S NOT APPLICABLE FOR DIALYSIS PATIEN TS. Knowledge Management Consultant ID - EDASICBC W/PLT COUNT & AUTO [id number] 04:32:00 Test Item Value Reference Range Interpretation [...] PERCENT (BEAKER) (test code = 2801) POCT-GLUCOSE [id number] 21:36:00 Test Item Value Reference Range Interpretation Comments POC-GLUCOSE METER 146 mg/dL 70-110 H : TESTED Parveen T [facility] [address] (BEAKER) (test code = [place]ON [place], 1538) [address]: Knowledge Management Consultant/Techni min ID = [id number] for Johana Vasquez Hemoglobin [id number] 15:28:00 Test Item Value Reference Range Interpretation Comments Hemoglobin A1C (test code = 4548-4) 5.6 % 4.3-6.1 Lab Interpretation (test code = Normal 47562-3) [facility] [id number] 15:28:00 Test Item Value Reference Range Interpretation Comments HEMOGLOBIN A1C (BEAKER) (test code = 5.6 % 4.3-6.1 368) CBC W/PLT COUNT & AUTO [id number] 12:44:00 Test Item Value Reference Range Interpretation [...] PERCENT (BEAKER) (test code = 2801) POCT-GLUCOSE [id number] 11:11:00 Test Item Value Reference Range Interpretation Comments POC-GLUCOSE METER 125 mg/dL 70-110 H : [facility] ([facility] (test code = [facility], 1538) [address]: Knowledge Management Consultant/Techni min ID = [id number] for BE LL, BEAULA Vancomycin level, [id number] 10:39:00 Test Item Value Reference Range Interpretation Comments Vancomycin Rm (test 4.8 ug/mL code = 29234-4) ELIANA (test code = Reference Range: No ELIANA) NormalsOperator ID - COLBY Rodriguez [facility] CenterVANCOMYCIN LEVEL, [id number] 10:39:00 Test Item Value Reference Range Interpretation Comments VANCOMYCIN RANDOM (BEAKER) (test 4.8 ug/mL code = 523) Reference Range: No NormalsOperator ID - COLBY CPOCT-GLUCOSE [id number] 08:38:00 Test Item Value Reference Range Interpretation Comments POC-GLUCOSE METER 119 mg/dL 70-110 H : [facility] (BEAKER[facility] (test code = [employer] [facility], 1538) [address]: Knowledge Management Consultant/Techni min ID = [id number] for BE LL, BEAULA SARS-CoV2/RT-PCR (Asymptomatic ONLY)2020-10-01 08:13:00 Test Item Value Reference Range Interpretation Comments SARS-COV2/RT-PCR Negative Not Detected, (test code = Negative, See [address]-8) external report for linked test SARS-COV-2 [facility] PERFORM[facility] (test code = 81044-1) ELIANA (test code = Negative result for [...] of the Act. Fact Sheet for Healthcare Providers:https://www.[employer]/sites/default/f dorys/product/documents/F act_Sheet_HC_Providers_L wyb_AMVP-CeN-4.pdf Fact Sheet for Healthcare Patients:https://www.[employer].Marco Vasco/sites/default/fi les/product/documents/Fa ct_Sheet_Patients_Lyra_S ARS-CoV-2.pdf Performing Laboratory:[facility] [place] [address] [facility] ([facility])2020-10-01 08:13:00 Test Item Value Reference Range Interpretation Comments SARS-COV2/RT-PCR (test Negative Not Detected, Negative, code = 3986837) See external report for linked test SARS-COV-[address] [facility] (test code = 0656987) Negative result for this test determines that [...] 564(g) of the Act.Fact Sheet for Healthcare Providers:https://www.[employer]/sites/default/files/product/documents/Fact_Shee m_PX_Hyhstxqtx_Ukmm_SUZU-BpJ-1.pdfFact Sheet for Healthcare Patients:https://www.[employer].com/sites/default/files/product/ documents/Vxzu_Oqcvl_Wuaxrjco_Grnp_OLFQ-NyO-5.pdfPerforming Laboratory:[facility], [place] [id number] 06:20:00 Test Item Value Reference Range Interpretation Comments Ferritin (test code = 61.09 ng/mL 5-275 2276-4) ELIANA (test code = ELIANA) Knowledge Management Consultant ID - ASHLEIGH L Lab Interpretation (test Normal code = 37581-1) [facility] CenterVitamin B12 and [id number] 06:20:00 Test Item Value Reference Range Interpretation Comments Vitamin B12 (test 267 pg/mL 213-816 code = 2132-9) Folate (test code = 11.30 ng/mL See_Comment [Automa joya 2284-8) message] The system which generated this result transmit joya reference range : >=7.00. The reference range was not used to interpret this result as normal/abnormal . ELIANA (test code = ELIANA) Knowledge Management Consultant ID - ASHLEIGH Barb Lab Interpretation Normal (test code = 88914-6) [facility] CenterFERRITIN2021-03-19 06:20:00 Test Item Value Reference Range Interpretation Comments FERRITIN (BEAKER) (test code = 61.09 ng/mL 5.00-275.00 361) Knowledge Management Consultant ID - ASHLEIGH LVITAMIN B12 AND [id number] 06:20:00 Test Item Value Reference Range Interpretation Comments VITAMIN B12 267 pg/mL 213-816 (BEAKER) (test code = 774) FOLATE (BEAKER) 11.30 ng/mL See_Comment [Automated message] (test code = 362) The system which generated this result transmitted ref erence range: >=7.00. The reference range was not used to interpr et this result as normal/abnormal . Knowledge Management Consultant ID Eulalio Vazquez, TIBC, % sat. (without ferritin)2020-10-01 06:04:00 Test Item Value Reference Range Interpretation Comments Iron (test code = 2498-4) 17.0 ug/dL 40-160 L TIBC (test code = 2500-7) 323 ug/dL 250-450 Iron % Saturation (test 5 % 20-55 L code = 2502-3) ELIANA (test code = ELIANA) Knowledge Management Consultant ID - ASHLEIGH L Lab Interpretation (test Abnormal code = 53512-7) [facility] CenterIR[facility], TIBC, % SAT. (WITHOUT FERRITIN)2020-10-01 06:04:00 Test Item Value Reference Range Interpretation Comments IRON (BEAKER) (test code = 547) 17.0 ug/dL 40.0-160.0 L TOTAL IRON BINDING CAPACITY 323 ug/dL 250-450 (BEAKER) (test code = 769) IRON % SATURATION (2) (BEAKER) 5 % 20-55 L (test code = 2590) Knowledge Management Consultant ID - PIAYA LPOCT-GLUCOSE [id number] 05:23:00 Test Item Value Reference Range Interpretation Comments POC-GLUCOSE METER 116 mg/dL 70-110 H : TESTED A T [facility] (BEAKER) (test code [facility], = 1538) 70641: Knowledge Management Consultant/Techni min ID = [id number] for ELIDAU JUNIE CASAS CBC W/PLT COUNT & AUTO [id number] 03:26:00 Test Item Value Reference Range Interpretation [...] (BEAKER) (test code = 2801) COMPREHENSIVE METABOLIC [id number] 03:22:00 Test Item Value Reference Range Interpretation [...] 347) EGFR (BEAKER) (test 31 mL/min/1.73 ESTIMA JOYA GFR IS code = 1092) sq m NOT ACCURATE CREATININE CLEARANCE IN PREDICTING GLOMERULAR FILTRATION RATE . ESTIMATED GFR I S NOT APPLICABLE FOR DIALYSIS PATIEN TS. Knowledge Management Consultant ID - DBCBC W/PLT COUNT & AUTO [id number] 20:14:00 Test Item Value Reference Range Interpretation [...] PERCENT (BEAKER) (test code = 2801) POCT-GLUCOSE [id number] 20:12:00 Test Item Value Reference Range Interpretation Comments POC-GLUCOSE METER 134 mg/dL 70-110 H : TESTED A T [facility] (BEAKER) (test code [facility], = 1538) 67622: Knowledge Management Consultant/Techni min ID = [id number] for ELIDALela DELONTE CASASINE CBC (HEMOGRAM ONLY)2020-09-30 15:28:00 Test Item Value [...] 0-0 (BEAKER) (test code = 413) POCT-GLUCOSE [id number] 14:32:00 Test Item Value Reference Range Interpretation Comments POC-GLUCOSE METER 106 mg/dL 70-110 : TESTED A [place] [facility] (WENDI) (test code = [place], 1538) 60[address]: Knowledge Management Consultant/Techni min ID = [id number] for CHUY SWANN HEMOGLOBIN [id number] 11:57:00 Test Item Value Reference Range Interpretation Comments HEMOGLOBIN A1C (WENDI) (test code = 5.6 % 4.3-6.1 368) U/S, ABDOMINAL, [id number] 11:53:00Abdomen limited area? Add comment if clarification is needed.->Right upper quadrantReason for exam:->liver cirrhosis; ETOH abuse [facility] : 1950 Sex: MFINAL REPORT [...] concerning for chronic medical renal disease. Signed: Nav Hernadez MDReport Verified Date/Time: 09/30/2020 11:53:08 US abdomen [id number] 11:53:00Interface, External Ris In - 09/30/2020 11:55 [...] concerning for chronic medical renal disease. Signed: Nav Hernadez MDReport Verified Date/Time: 09/30/2020 11:53:08 Electronically signedby: NAV HERNADEZ MD on 09/30/2020 11:53 [facility] + Reflex to Culture 2020-09-30 10:53:00 Test Item Value Reference Range Interpretation Comments Color, UA (test code Light Yellow = 5778-6) Clarity, UA (test Clear code = 5767-9) Specific [place], UA 1.014 1.001-1.035 (test code = 5811-5) pH, UA (test code = 6.0 5.0-8.0 5803-2) Protein, UA (test 200 mg/dL Negative A code = 79389-8) Glucose, UA (test 50 mg/dL Negative A code = 365) Ketones, UA (test Negative Negative code = 2514-8) Bilirubin, UA (test Negative Negative code = 58564-9) Blood, UA (test code Small Negative A = 14254-5) Nitrite, UA (test Negative Negative code = 5802-4) Leukocytes, UA (test Negative Negative code = 5799-2) Urobilinogen, UA 0.2 mg/dL 0.2-1 (test code = 99374-6) RBC, UA (test code = 1 See_Comment [Autom ated 77603-1) message] The system which generated this result transmit joya reference range : /HPF. The reference range was not used to interpret this result as normal/abnormal . WBC, UA (test code = 1 See_Comment [Autom ated 5821-4) message] The system which generated this result transmit joya reference range : /HPF. The reference range was not used to interpret this result as normal/abnormal . Bacteria, UA (test Few code = 49258-0) Mucus (test code = Few 8247-9) Squam Epithel, UA 1 See_Comment [Automate d (test code = 78451-4) messag e] The system which generated this result transmit joya reference range : /HPF. The reference range was not used to interpret this result as normal/abnormal . Hyaline Casts, UA 6 See_Comment [Automate d (test code = 85785-2) duarte e] The system which generated this result transmit joya reference range : /LPF. The reference range was not used to interpret this result as normal/abnormal . Specimen Source (test code = 2795) ELIANA (test code = ELIANA) Knowledge Management Consultant ID - [auto]Knowledge Management Consultant ID - tech Lab Interpretation Abnormal (test code = 63360-4) [facility] URINE [id number] 10:53:00 Test Item Value Reference Range Interpretation [...] = 514) SOURCE(BEAKER) (test code = 2795) Knowledge Management Consultant ID - [auto]Knowledge Management Consultant ID - techLactic acid, [id number] 10:00:00 Test Item Value Reference Range Interpretation Comments Lactate, Venous (test code 1.08 mmol/L 0.5-2.2 = 2872) ELIANA (test code = ELIANA) Knowledge Management Consultant ID - ASHLEIGH L Lab Interpretation (test Normal code = 05557-8) [facility] CenterLACTIC ACID, [id number] 10:00:00 Test Item Value Reference Range Interpretation Comments LACTATE BLOOD VENOUS (2) (BEAKER) 1.08 mmol/L 0.50-2.20 (test code = 2872) Knowledge Management Consultant ID Eulalio SOTELO LCBC W/PLT COUNT & AUTO [id number] 09:53:00 Test Item Value Reference Range Interpretation [...] = 2801) RAD, CHEST, 1 VIEW, NON [id number] 09:06:00Reason for exam:->? sob [facility] : 1950 Sex: MFINAL REPORT INDICATION: ? sob COMPARISON: None TECHNIQUE: Single fro ntal view of the chest. FINDINGS: Lungs and pleura: Clear lungs. No effusion.Heart and mediastinum: Normal heart size. Unremarkable mediastinal contours.Osseous structures: No acute abnormality.Other: None. IMPRESSION: No acute intrathoracic abnormality. Signed: Edson Cleary MDReport Verified Date/ Time: 09/30/2020 09:06:18 Reading Location: [facility] Radiology Reading Room XR chest 1 view portable / [id number] 09:06:00Interface, External Ris In - 09/30/2020 9:24 AM CDTFINAL REPORT INDICATION: ? sob COMPARISON: None TECHNIQUE: Single frontal view of the chest. FINDINGS: Lungs and pleura: Clearlungs. No effusion.Heart and mediastinum: Normal heart size. Unremarkable mediastinal contours.Osseous structures: No acute abnormality.Other: None. IMPRESSION: No acute intrathoracic abnormality. Sign ed: Edson Cleary Verified Date/Time: 09/30/2020 09:06:18 Reading Location: [facility] Radiology Reading Room [facility] COMPREHENSIVE METABOLIC [id number] 07:47:00 Test Item Value Reference Range Interpretation [...] 347) EGFR (BEAKER) (test 28 mL/min/1.73 ESTIMA JOYA GFR IS code = 1092) sq m NOT ACCURATE CREATININE CLEARANCE IN PREDICTING GLOMERULAR FILTRATION RATE . ESTIMATED GFR I S NOT APPLICABLE FOR DIALYSIS PATIEN TS. Knowledge Management Consultant ID - [id number] 07:07:00 Test Item Value Reference Range Interpretation Comments PTT (test code = 33105-3) 25.1 See_Comment [ Automated message] The system [email or web address] generated this result transmitted ref erence range: 22.5 - 3 6.0 seconds. The re ference range was not u sed to interpret this result as normal/abnor mal. Lab Interpretation (test Normal code = 06506-8) [facility] CenterPROTHROMBIN TIME/[id number] 07:07:00 Test Item Value Reference Range Interpretation Comments PROTIME (BEAKER) 14.2 seconds 11.9-14.2 (test code = 759) INR (BEAKER) (test 1.13 See_Comment [Automat ed message] code = 370) The system [email or web address] generated this result transmitted ref erence range: <=5.90. The reference range was not used to int erpret this result as normal/abnormal . Effective 12/11/2018: PT Reference Range ChangeNew: 11.9-14.2 Previous: 11.7- 14.7RECOMMENDED COUMADIN/WARFARIN INR THERAPY RANGESSTANDARD DOSE: 2.0-3.0 Includes: PROPHYLAXIS for venous thrombosis, systemic embolization; TREATMENT for venous thrombosis and/or pulmonary embolus.HIGH RISK: Target INR is2.5-3.5 for patients wiht mechanical heart valves.[id number] 07:07:00 Test Item Value Reference Range Interpretation Comments PARTIAL THROMBOPLASTIN TIME 25.1 seconds 22.5-36.0 (BEAKER) (test code = 760) POCT-GLUCOSE [id number] 06:39:00 Test Item Value Reference Range Interpretation Comments POC-GLUCOSE METER 150 mg/dL 70-110 H : [facility] (test code [facility], = 1538) [address]74[address]: Knowledge Management Consultant/Techni min ID = [id number] for CORRY CASAS JUNIE [id number] 00:00:00Ordered by an unspecified provider.[facility]ARS[facility] ([facility])2020-01-26 13:29:00 Test Item Value Reference Range Interpretation Comments SARS-COV2/RT-PCR (test code = Negative Not Detected, Negative 1278818) SARS-COV-[address] [facility] (test code = 8540467) Negative result for this test determines that [...] 564(g) of the Act.Fact Sheet for Healthcare Providers:https://www.Xoinkaidel.com/sites/default/files/product/documents/Fact_Shee x_FQ_Kpdzhdnyg_Hjpp_ERXP-OwN-4.pdfFact Sheet for Healthcare Patients:https://www.OnKure.com/sites/default/files/product/ documents/Xeck_Phser_Xzpemigu_Xjaa_MCTA-BhZ-5.pdfPerforming Laboratory:[facility] [place] [address]
--- NOTE | 2020-12-15 11:57 | ER ---
Nurse's Notes [facility] Name: Amaury Matamoros Age: 69 yrs Sex: Male : 1950 Arrival Date: 12/15/2020 Time: 10:03 Bed Waiting Private MD: Diagnosis: ED Course: 12/15 10:03 Patient arrived in ED. ds1 10:20 Patient's name was called from ER lobby. No response. Unable to locate patient. Will ph disposition as left without being seen by a provider. 11:10 Patient's name was called from ER lobby. No response. Unable to locate patient. Will ph disposition as left without being seen by a provider. 11:57 Nic Butcher MD is Attending Physician. aa5 Administered Medications: No medications were administered Outcome: 11:49 Eloped from waiting room, Time discovered patient gone: December 15, 2020 at 10:20 ph 11:57 Patient left the ED. aa5 Signatures: Alana Harrell ds1 Shikha Ibanez, RN RN aa5 Lora Roe RN RN ph
== END 2020-12-15 11:57 | disposition left against medical advice (07) ==
LOC: ER 10:01
DX: Z02.9 Encounter for administrative examinations, unspecified (principal)

== ENCOUNTER 2021-01-28 18:07 | Emergency (ER) | payer OTHER ==
--- OUTSIDE RECORDS SUMMARY | 2021-01-28 18:14 | XMS REPORT | Continuity of Care Document ---
:1950 Author Organization [facility] t Address [address] [place] [address] Care Team Providers Name Role Phone Lynda Espinoza MD Attending Clinician Niranjan Jackson MD Attending Clinician Lynda ESPINOZA Attending Clinician Unavailable Narda MAXWELL, Eric Attending Clinician Jose Ross MD Attending Clinician Lynda ESPINOZA Admitting Clinician Unavailable Payers Payer Name Policy Type Policy Effective Date Expiration Date Sour ce Number [facility] [id number] [facility] MGD CAREWELLCARE 00:00:00 - Medica l [id number] Center 21-Present Problems Condition Condition Condition Status Onset Resolution Last Treating Co mments Source Name Details Category Date Date Treatment Clinician Date 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 00:00: Me dical site site 00 [place] Liver Liver Disease Active [facility] cirrhosis cirrhosis - [facility] - 00:00: Medical 00 Rupert Portal Portal Disease Active [facility] hypertensi hypertensi -21 Estrella kes - ve ve 00:00: Medical gastropath gastropath 00 Ce nter y y GI bleed GI bleed Disease Active [facility] t 3-18 [facility] - 00:00: Medical 00 [place] Allergies, Adverse Reactions, Alerts Allergy Allergy Status Severity Reaction(s) Onset Inactive Treating Comm ents Source Name Type Date Date Clinician Penicill Drug Active Rash [facility] ins Allergy 12-13 [facility] - 00:00: Medical 00 Center Penicill Adverse Active Info Not [facility] t amine Reaction Available [facility] Social History Social Habit Start Date Stop Date Quantity Comments Source Sex Assigned At [facility] Alcohol intake 2020-10-04 2020-10-04 Current drinker [facility] Elvis [facility] - 00:00:00 00:00:00 of [facility] (finding) Tobacco use and 2020-10-04 2020-10-04 Never used [facility] - exposure 00:00:00 00:00:00 [facility] Smoking Status Start Date Stop Date Source Current every day smoker 2020-10-04 00:00:00 [facility] Medications Ordered Filled Start Stop Current Ordering Indication Dosage Frequency Signature Comments Components Source Medication Medication Date Date Medication? Clinician (SIG) Name Name amLODIPine No 2.5mg QD Take [address] (NORVASC) 10-04 tablet [facility] - 2.5 MG 00:00: 23:59 (2.5 mg Medical tablet 00 :00 total) by Center mouth daily. pantoprazol Yes 40mg Q.5D Take [address] e 10-03 tablet (40 [facility] - (PROTONIX) 00:00: mg total) Me dical 40 MG 00 by mouth 2 Center tablet (two) times daily. acetaminoph 2021- No 650mg Take [address] en [...] [address] Mera [facility] Hydrochloro Hydrochloro Yes Alfonzo [address] thiazide thiazide Mera in the Luke s - morning [facility] Pantoprazol Pantoprazol Yes Alfonzo [address] e Sodium e Sodium Mera Luchi [facility] - [facility] Metoprolol Metoprolol Yes Alfonzo [address] Tartrate Tartrate Mera with food L [facility] Ferrous Ferrous Yes Alfonzo [address]ulfate Sulfate Mera [facility] - [facility] Amlodipine Amlodipine Yes Alfonzo [address] Besylate Besylate Mera [facility] Gabapentin Gabapentin Yes Alfonzo [address] [facility] - [facility] Metformin Metformin Yes Alfonzo [address] HCl HCl Mera with a [facility] - meal [facility] Vital Signs Vital Name Observation Time Observation Value Comments Source Systolic blood 2020-10-03 19:17:00 111 mm[Hg] [facility] Diastolic blood 2020-10-03 19:17:00 61 mm[Hg] [facility] Heart rate 2020-10-03 19:17:00 75 /min [facility] Body temperature 2020-10-03 19:17:00 36.94 Latesha [facility] Respiratory rate 2020-10-03 19:17:00 17 /min [facility] Oxygen saturation in 2020-10-03 19:17:00 98 /min [facility] - Arterial blood by Medical Ce nter Pulse oximetry Body weight 2020-10-03 07:05:00 51.982 kg [facility] BMI 2020-10-03 07:05:00 20.96 kg/m2 [facility] Body height 2020-09-30 05:22:00 157.5 cm [facility] Procedures Procedure Date / Time Performed Performing Clinician Sourc e POCT-GLUCOSE METER 2020-10-03 18:09:00 Alice Jackson [facility] HEPATITIS B PCR, 2020-10-03 15:49:00 Sarkis Laboy [facility] HEPATITIS C PCR, 2020-10-03 15:49:00 Sarkis Laboy [facility] POCT-GLUCOSE METER 2020-10-03 11:48:00 Alexis Jacksonurad [facility] POCT-GLUCOSE METER 2020-10-03 08:34:00 Renetta [facility] CBC W/PLT COUNT & AUTO 2020-10-03 04:35:00 Nate Fields [facility] CBC (HEMOGRAM ONLY) 2020-10-03 04:35:00 Delmi Peguero [facility] BASIC METABOLIC PANEL (7) 2020-10-03 04:35:00 Delmi Peguero [facility] ACTIN (SMOOTH MUSCLE) 2020-10-03 04:35:00 [facility] ANTIB[facility], IGG [facility] ALPHA FETOPROTEIN (AFP), 2020-10-03 04:35:00 [facility] TUMOR MARKER [facility] [id number], 2020-10-03 04:35:00 [facility] SERUM [facility] ANTI-NUCLEAR ANTIBODY 2020-10-03 04:35:00 [facility] - (GAMAL) [facility] BILIRUBIN, DIRECT 2020-10-03 04:35:00 Wendy [facility] CERULOPLASMIN 2020-10-03 04:35:00 [facility] ANTIBODY, IGG 2020-10-03 04:35:00 Wendy [facility] HEPATITIS B SURFACE 2020-10-03 04:35:00 Wendy, Delfinaq [facility] S t [facility] - ANTIBODY [facility] HEPATITIS B SURFACE 2020-10-03 04:35:00 [facility] ANTIGEN [facility] HEPATITIS B CORE 2020-10-03 04:35:00 Wendy[facility] - ANTIBODY, TOTAL [facility] HEPATITIS C ANTIBODY 2020-10-03 04:35:00 [facility] MITOCHONDRIA M2 ANTIBODY 2020-10-03 04:35:00 [facility] (IGG) [facility] PROTHROMBIN TIME/INR 2020-10-03 04:35:00 [facility] POCT-GLUCOSE METER 2020-10-02 21:19:00 Alice Jackson [facility] CBC W/PLT COUNT & AUTO 2020-10-02 17:29:00 Nate Fields [facility] VANCOMYCIN LEVEL, TROUGH 2020-10-02 17:29:00 Severo Martinez [facility] POCT-GLUCOSE METER 2020-10-02 17:24:00 Alice Jackson [facility] POCT-GLUCOSE METER 2020-10-02 11:21:00 Alice Jackson [facility] POCT-GLUCOSE METER 2020-10-02 08:03:00 Alice Jackson [facility] CBC W/PLT COUNT & AUTO 2020-10-02 03:39:00 Nate Fields [facility] COMPREHENSIVE METABOLIC 2020-10-02 03:39:00 Delmi Peguero [facility] POCT-GLUCOSE METER 2020-10-01 21:23:00 Alice Jackson [facility] HEMOGLOBIN A1C 2020-10-01 14:34:00 Delmi Peguero [facility] CBC W/PLT COUNT & AUTO 2020-10-01 12:08:00 Adrienne Ortiz [facility] - DIFFERENTIAL [facility] POCT-GLUCOSE METER 2020-10-01 10:58:00 Alice Jackson [facility] REPORT OF PROCEDURE - 2020-10-01 10:35:58 Sarkis Laboy [facility] ENDOSCOPY [facility] VANCOMYCIN LEVEL, RANDOM 2020-10-01 10:06:00 Meghann Grier [facility] TISSUE EXAM 2020-10-01 09:43:00 Narda [facility] UPPER ENDOSCOPY,BIOPSY 2020-10-01 09:14:00 Narda [facility] POCT-GLUCOSE METER 2020-10-01 08:23:00 Alexis Jacksonurad [facility] POCT-GLUCOSE METER 2020-10-01 05:11:00 Alexis Jacksonurad [facility] VITAMIN B12 AND FOLATE 2020-10-01 04:42:00 Laney Ford [facility] IRON, TIBC, % SAT. 2020-10-01 04:42:[address] [facility] (WITHOUT FERRITIN) [facility] 2020-10-01 04:42:00 Ford Espinoza [facility] CBC W/PLT COUNT & AUTO 2020-10-01 02:44:00 Adrienne Ortiz [facility] - DIFFERENTIAL [facility] SARS-COV2/RT-PCR ([facility] & 2020-10-01 02:44:00 Nate Fields Ma [facility] - REF LABS) [facility] COMPREHENSIVE METABOLIC 2020-10-01 02:44:00 Nate Fields [facility] CBC W/PLT COUNT & AUTO 2020-09-30 20:01:00 Adrienne Ortiz [facility] DIFFERENTIAL [facility] POCT-GLUCOSE METER 2020-09-30 20:00:00 Alice Jackson [facility] CBC (HEMOGRAM ONLY) 2020-09-30 15:15:00 Nate Fields [facility], I [facility] POCT-GLUCOSE METER 2020-09-30 14:20:00 Alice Jackson [facility] US ABDOMEN LIMITED 2020-09-30 11:32:00 Ford Espinoza [facility] BLOOD CULTURE 2020-09-30 09:45:00 [facility] CBC W/PLT COUNT & AUTO 2020-09-30 09:22:[facility] BLOOD CULTURE 2020-09-30 09:22:00 [facility] LACTIC ACID, VENOUS 2020-09-30 09:22:00 [facility] URINALYSIS W/ REFLEX 2020-09-30 09:22:00 [facility] URINE CULTURE [facility] XR CHEST 1 VIEW 2020-09-30 08:39:00 Adrienne Ortiz [facility]/BEDSIDE [facility] HEMOGLOBIN A1C 2020-09-30 06:52:00 Malcolm Hernandez [facility] POCT-GLUCOSE METER 2020-09-30 06:27:00 Ford Espinoza [facility] PROTHROMBIN TIME/INR 2020-09-30 06:22:00 Malcolm Hernandez CH, I [facility] APTT 2020-09-30 06:22:00 Malcolm Hernandez [facility] COMPREHENSIVE METABOLIC 2020-09-30 06:22:00 Malcolm Hernandez [facility] REPORT OF PROCEDURE - 2020-09-30 00:00:00 Provider, Default [facility] SC[facility] Scanning [facility] Plan of Care Planned Activity Planned Date Details Comments Source Future Scheduled 2020-07-[address] [facility] - Test 00:00:00 (12+) [code = [facility] DEPRESSION SCREENING (12+)] Future Scheduled 2020-07-[address] [facility] 00:00[facility]00 (WELCOME TO MEDICARE) Medica l Center [code = Medicare IPPE (WELCOME TO MEDICARE)] Future Scheduled 2002 SHINGLES VACCINES ([address] [facility] - Test 00:00:00 of 2) [code = [facility] SHINGLES VACCINES (1 of 2)] Future Scheduled 1971-12-21 DTAP/TDAP/TD VACCINES [facility] Test 00:00:00 (1 - Tdap) [code = Medical C enter DTAP/TDAP/TD VACCINES (1 - Tdap)] Future Scheduled 1964 COVID-19 VACCINE (1) [facility] - Test 00:00:00 [code = COVID-[address] VACCINE (1)] Future Scheduled [address] [facility] Test 00:00:00 malignant neoplasm of [facility] colon (procedure) [code = 123921324] Encounters Start End Encounter Admission Attending Care Care Encounter Source Date/Time Date/Time Type Type Clinicians Facility Department ID 2020-06-24 2020-06-24 Outpatient [facility] [id number] [facility] 2020-06-03 2020-06-03 Outpatient [facility] [id number] [facility] 2020-05-25 2020-05-25 Outpatient [facility] [id number] [facility] 2020-05-13 2020-05-13 [facility] [id number] [facility] 2020-04-29 2020-04-29 Outpatient [facility] [id number] [facility] 2020-04-15 2020-04-15 [facility] [id number] [facility] 2020-04-15 2020-04-15 [facility] [id number] [facility] 2020-04-07 2020-04-07 [facility] [id number] [facility] 2020-03-26 2020-03-26 [facility] [id number] 09:10:00 09:10:00 t [employer] [place] [facility] Medicine Outpati ent Clinics 2019-09-21 2019-09-21 [facility] [id number] 21:47:00 21:47:00 t [facility] Medicine Outpati ent Clinics 2019-09-19 2019-09-19 [facility] [id number] 13:30:00 13:30:00 t [facility] Medicine Outpati ent Clinics 2019-09-10 2019-09-10 [facility] [id number] 10:15:00 10:15:00 t [facility] Medicine Outpati ent Clinics 2019-06-20 2019-06-20 [facility] [id number] 13:20:00 13:20:00 t [facility] Medicine Outpati ent Clinics 2019-03-21 2019-03-21 [facility] [id number] 11:20:00 11:20:00 t [facility] Medicine Outpati ent Clinics Results Test Description Test Time Test Comments Results Result Comments Source Actin (Smooth Muscle) Antibody, IgG 2020-10-07 01:25:00 Test Item Value Reference Range Interpretation Comme nts Anti-Smooth Muscle <20 See Note: U Reference Range:<20 Ab (test code = NEGATIVE> OR = 20 POSITIVE [id number]) Antibodies raad gnizing actin are the main [...] (test code = Performing Lab ELIANA) [facility] [address] [address] Obdulia Ulrich MD, PhD, MARINA [facility]erul[facility]min2021-[facility] 14:07:00 Test Item Value Reference Range Interpretation Comments Ceruloplasmin (test code 39 mg/dL 18-36 H = 20190906) ELIANA (test code = ELIANA) Performing Lab *GIULIA [facility], [address] [place] [phone] Nereida Rocha MD Lab Interpretation (test Abnormal code = 03687-8) [facility] HospitalMitochondria M2 Antibody (IgG)2020-10-06 13:29:00 Test Item Value Reference Range Interpretation Comments Mitochondria M2 Ab 20.3 U See Note: H Reference (test code = 3119844) Range: NEGATIVE: < OR = 20.0EQUIVOCAL: 20.1-24.9POSITI VE: > OR = 25.0 ELIANA (test code = ELIANA) Performing Lab [facility] [address] [address] Obdulia Ulrich MD, PhD, MARINA Lab Interpretation Abnormal (test code = 64004-2) [facility] - Routine (Left Venipuncture) 2020-10-05 14:00:00 Test Item Value Reference Range Interpretation Comments Result (test code = No growth in 5 days 6463-4) [facility]BLOOD [id number] 14:00:00 Test Item Value Reference Range Interpretation Comments CULTURE (BEAKER) (test No growth in 5 days code = 1095) BLOOD [id number] 11:00:00 Test Item Value Reference Range Interpretation Comments CULTURE (BEAKER) (test No growth in 5 days code = 1095) Hepatitis B PCR, [id number] 20:15:00 Test Item Value Reference Range Interpretation Comments HBV PCR, Quantitative HBV DNA not detected HBV DNA not (test code = 83459-0) detected ELIANA (test code = ELIANA) This test uses a Real-Time Polymerase Chain Reaction (RT-PCR) methodology and was performed using MADONNA AmpliPrep/MADONNA TaqMan HBV Test, v2.0 ([employer] Reportable range for this assay is 20 - 170,000,000 IU per mL (1.30 - 8.23 Log IU/mL). Lab Interpretation Normal (test code = 85545-0) [facility] HospitalHEN[facility]ERTIS B PCR, [id number] 20:15:00 Test Item Value Reference Range Interpretation Comments HBV RESULT COMPONENT HBV DNA not detected HBV DNA not detected (BEAKER) (test code = 2701) This test uses a Real-Time Polymerase Chain Reaction (RT-PCR) methodology and was performed using M[employer]NA AmpliPrep/MADONNA TaqMan HBV Test, v2.0 ([employer]Reportable range for this assay is 20 - 170,000,000 IU per mL (1.30 - 8.23 Log IU/mL).Hepatitis C PCR, [id number] 19:56:00 Test Item Value Reference Range Interpretation Comments HCV PCR, Quantitative 947202 See_Comment H [Auto mated (test code = 75981-4) messag e] The system which generated this result transmitted reference range : <15 IU/mL. The reference range was not used to interpret this result as normal/abnormal . ELIANA (test code = ELIANA) This test uses a Real-Time Polymerase Chain Reaction (RT-PCR) methodology and was performed using [employer]NA Ampliprep/MAD[employer]NA TaqMan HCV test kit version 2.0 ([employer]). Reportable range for this assay is 15 - 100,000,000 IU per mL (1.18 - 8.00 Log IU/mL). Lab Interpretation Abnormal (test code = 12419-5) [facility] HospitalHEN[facility]ENTERTIS C PCR, [id number] 19:56:00 Test Item Value Reference Range Interpretation Comments HCV NUMERIC RESULT ([facility]) 919631 IU/mL <15 H (test code = 2700) This test uses a Real-Time Polymerase Chain Reaction (RT-PCR) methodology and was performed using MADONNA Ampliprep/MADONNA TaqMan HCV test kit version 2.0 ([employer]).Reportable range for this assay is 15 - 100,000,000 IU per mL (1.18 - 8.00 Log IU/mL).Anti-Nuclear Antibody (GAMAL) 2020-10-04 12:41:00 Test Item Value Reference Range Interpretation Comments GAMAL (test code = 27101-6) Negative Negative ELIANA (test code = ELIANA) Test performed by IFA method. Lab Interpretation (test Normal code = 11921-9) [facility] HospitalANTI-NUCLEAR ANTIBODY (GAMAL)2020-10-04 12:41:00 Test Item Value Reference Range Interpretation Comments ANTI-NUCLEAR ANTIBODY (GAMAL) (AKER) Negative Negative (test code = 418) Test performed by IFA method.POC-Glucose [id number] 18:23:00 Test Item Value Reference Range Interpretation Comments POC-Glucose Meter (test 127 mg/dL 70-110 H : TE STED AT [facility] code = 1538) [address] [facility], 770 30: Special Education Teaching Assistant/Techni min ID = [id number] for Igbalajobi, She neto Lab Interpretation (test Abnormal code = 80614-3) [facility] HospitalPOCT-GLUCOSE [id number] 18:23:00 Test Item Value Reference Range Interpretation Comments POC-GLUCOSE METER 127 mg/dL 70-110 H : [facility]) (test code = [facility], 1538) [address]: Special Education Teaching Assistant/Techni min ID = [id number] for Igbalajobi, She neto POCT-GLUCOSE [id number] 12:00:00 Test Item Value Reference Range Interpretation Comments POC-GLUCOSE METER 78 mg/dL 70-110 : [facility] ([facility]) (test code = [facility], 1538) [address]: Special Education Teaching Assistant/Techni min ID = [id number] for Gregba Kassandra ventura Hepatitis B core antibody, [id number] 10:45:00 Test Item Value Reference Range Interpretation Comments Hep B Core Total Ab (test Reactive Nonreactive A code = 13083-4) ELIANA (test code = ELIANA) Special Education Teaching Assistant ID - DBOperator ID - DBOperator ID - DB Lab Interpretation (test Abnormal code = 03054-2) [facility] HospitalHEPATITIS [facility] CORE ANTIBODY, [id number] 10:45:00 Test Item Value Reference Range Interpretation Comments HEPATITIS B CORE TOTAL ANTIBODY Reactive Nonreactive A (BEAKER) (test code = 497) Special Education Teaching Assistant ID - DBOperator ID - DBOperator ID - DBPOCT-GLUCOSE [id number] 08:50:00 Test Item Value Reference Range Interpretation Comments POC-GLUCOSE METER 83 mg/dL 70-110 : TESTED A T [facility] 6720 (BEAKER) (test code = [place], 1538) [address]: Special Education Teaching Assistant/Techni min ID = [id number] for Kassanrda Woods [id number] 08:30:00 Test Item Value Reference Range Interpretation Comments A-1 Antitrypsin (test 189.40 mg/dL 90-200 code = 1825-9) ELIANA (test code = ELIANA) Special Education Teaching Assistant ID - DBOperator ID - DBOperator ID - DB Lab Interpretation (test Normal code = 78116-7) [facility] [id number] 08:30:00 Test Item Value Reference Range Interpretation Comments ALPHA-1 ANTITRYPSIN (BEAKER) 189.40 mg/dL 90.00-200.00 (test code = 502) Special Education Teaching Assistant ID - DBOperator ID - DBOperator ID - DBHepatitis A antibody, IgG 2020-10-03 07:01:00 Test Item Value Reference Range Interpretation Comments Hep A IgG (test code = Reactive Nonreactive A 94659-2) ELIANA (test code = ELIANA) Special Education Teaching Assistant ID - DB Lab Interpretation (test Abnormal code = 90192-7) [facility] HospitalHEPATITIS A ANTIBODY, [id number] 07:01:00 Test Item Value Reference Range Interpretation Comments HEPATITIS A IGG ANTIBODY (BEAKER) Reactive Nonreactive A (test code = 2797) Special Education Teaching Assistant ID - DBHepatitis C [id number] 06:59:00 Test Item Value Reference Range Interpretation Comments Hepatitis C Ab (test code = Reactive Nonreactive A 45060-2) ELIANA (test code = ELIANA) Special Education Teaching Assistant ID - DB Lab Interpretation (test Abnormal code = 52265-9) [facility] HospitalHEPATITIS C [id number] 06:59:00 Test Item Value Reference Range Interpretation Comments HEPATITIS C ANTIBODY (BEAKER) (test Reactive Nonreactive A code = 367) Special Education Teaching Assistant ID - DBBasic Metabolic [id number] 06:38:00 Test Item Value Reference Range Interpretation [...] (test code = 7.8 mg/dL 8.4-10.2 L 79382-9) EGFR (test code = 39 mL/min/1.73 sq m ESTIMHELEN [place] [address]-3) NOT ACCURATE CREATININE CLEARANCE IN PREDICTING GLOMERULAR FILTRATION RATE . ESTIMATED GFR I S NOT APPLICABLE FOR DIALYSIS PATIENTS. ELIANA (test code = ELIANA) Special Education Teaching Assistant ID - EDASI Lab Interpretation Abnormal (test code = 46707-7) [facility] HospitalBilirubin, [id number] 06:38:00 Test Item Value Reference Range Interpretation Comments Bilirubin, Direct (test 0.2 mg/dL 0.1-0.5 code = 1968-7) ELIANA (test code = ELIANA) Special Education Teaching Assistant ID - EDASI Lab Interpretation (test Normal code = 96530-3) [facility] HospitalBILIRUBIN, [id number] 06:38:00 Test Item Value Reference Range Interpretation Comments BILIRUBIN DIRECT (BEAKER) (test 0.2 mg/dL 0.1-0.5 code = 706) Special Education Teaching Assistant ID - EDASIBASIC METABOLIC [id number] 06:38:00 Test Item Value Reference Range Interpretation [...] S NOT APPLICABLE FOR DIALYSIS PATIEN TS. Special Education Teaching Assistant ID - EDASIHepatitis B surface [id number] 06:14:00 Test Item Value Reference Range Interpretation Comments Hep B S Ab (test code <8.0 See_Comment [Auto mated = 96278-6) message] The system which generated this result transmit altagracia reference range : <8.0 mIU/mL. Th e reference range was not used to interpret this result as normal/abnormal . ELIANA (test code = ELIANA) Special Education Teaching Assistant ID - DB Lab Interpretation Normal (test code = 03965-4) [facility] HospitalHEPATITIS B SURFACE [id number] 06:14:00 Test Item Value Reference Range Interpretation Comments HEPATITIS B SURFACE ANTIBODY < mIU/mL <8.0 (BEAKER) (test code = 647) Special Education Teaching Assistant ID - DBHepatitis B surface [id number] 06:13:00 Test Item Value Reference Range Interpretation Comments HBsAg Screen (test code Nonreactive Nonreactive = 5195-3) ELIANA (test code = ELIANA) Specimen is considered negative for HBsAg. Lab Interpretation (test Normal code = 93126-5) [facility] [id number] 06:13:00 Test Item Value Reference Range Interpretation Comments Alpha-Fetoprotein (test code 2.1 ng/mL <10.0 = 1834-1) ELIANA (test code = ELIANA) Special Education Teaching Assistant ID - DB Lab Interpretation (test Normal code = 09127-0) [facility] SUR[facility] [id number] 06:13:00 Test Item Value Reference Range Interpretation Comments HEPATITIS B SURFACE ANTIGEN (2) Nonreactive Nonreactive (BEAKER) (test code = 2585) Specimen is considered negative for HBsAg.ALPHA FETOPROTEIN (AFP), TUMOR MARKER 2020-10-03 06:13:00 Test Item Value Reference Range Interpretation Comments ALPHA-FETOPROTEIN (BEAKER) (test 2.1 ng/mL <10.0 code = 1094) Special Education Teaching Assistant ID - DBProthrombin time/[id number] 05:06:00 Test Item Value Reference Interpretation Comments Range Protime (test code = 14.4 See_Comment H [Autom ated 6963-2) message] The system which generated this result transmitted reference range : 11.9 - 14.2 seconds. The reference range was not used to interpret this result as normal/abnormal . INR (test code = 1.16 See_Comment [Automated 9503-6) message] The system which generated this result [...] valves. Lab Interpretation Abnormal (test code = 65893-3) [facility]HROM[facility]/[id number] 05:06:00 Test Item Value Reference Range Interpretation Comments PROTIME (BEAKER) 14.4 seconds 11.9-14.2 H (test code = 759) INR (BEAKER) (test 1.16 See_Comment [Automat ed message] code = 370) The system [employer] generated this result transmitted ref erence range: [...] 8.8 See_Comment [A utomated message] The system [employer] generated this result transmitted ref erence range: 3.5 - 10 .5 K/L. The refe rence range was not u sed to interpret this result as normal/abnor mal. RBC (test code = 789-8) 2.56 See_Comment L [Au tomated message] The system [employer] generated this result transmitted ref erence range: 4.63 - 6 .08 M/L. The refe rence range was not u sed to interpret this result as normal/abnor mal. MCHC (test code = 786-4) 31.8 See_Comment L [A utomated message] The system [employer] generated this result transmitted ref erence range: [...] code = 172 See_Comment [Aut omated message] 837-3) The system [employer] generated this result transmitted ref erence range: 150 - 45 0 K/CU MM. The referen ce range was not u sed to interpret this result as normal/abnor mal. MPV (test code = 10.2 fL 9.4-12.4 50778-9) nRBC (test code = 413) 0 See_Comment [Aut omated message] The system [employer] generated this result transmitted ref erence range: 0 - 0 /1 00 WBC. The refere nce range was not u sed to interpret this result as normal/abnor mal. Lab Interpretation (test Abnormal code = 85299-8) [facility] with platelet count + automated [id number] 04:58:00 Test Item Value Reference Range Interpretation Comments WBC (test code = 6690-2) 8.8 See_Comment [A utomated message] The system [employer] generated this result transmitted ref erence range: 3.5 - 10 .5 K/L. The refe rence range was not u sed to interpret this result as normal/abnor mal. RBC (test code = 789-8) 2.56 See_Comment L [Au tomated message] The system [employer] generated this result transmitted ref erence range: 4.63 - 6 .08 M/L. The refe rence range was not u sed to interpret this result as normal/abnor mal. MCHC (test code = 786-4) 31.8 See_Comment L [A utomated message] The system [employer] generated this result transmitted ref erence range: [...] See_Comment [Aut omated message] 777-3) The system [employer] generated this result transmitted ref erence range: 150 - 45 0 K/CU MM. The referen ce range was not u sed to interpret this result as normal/abnor mal. MPV (test code = 10.2 fL 9.4-12.4 88034-1) nRBC (test code = 413) 0 See_Comment [Aut omated message] The system [employer] generated this result transmitted ref erence range: [...] H [Aut omated message] 670) The system [employer] generated this result transmitted ref erence range: 1.78 - 5 .38 K/L. The refe rence range was not u sed to interpret this result as normal/abnor mal. # Lymphs (test code = 0.86 See_Comment L [Auto mated message] 414) The system [employer] generated this result transmitted ref erence range: 1.32 - 3 .57 K/L. The refe rence range was not u sed to interpret this result as normal/abnor mal. # Monos (test code = 0.72 See_Comment [Autom ated message] 415) The system [employer] generated this result transmitted ref erence range: 0.30 - 0 .82 K/L. The refe rence range was not u sed to interpret this result as normal/abnor mal. # Eos (test code = 416) 0.12 See_Comment [Au tomated message] The system [employer] generated this result transmitted ref erence range: 0.04 - 0 .54 K/L. The refe rence range was not u sed to interpret this result as normal/abnor mal. # Baso (test code = 417) 0.02 See_Comment [A utomated message] The system [employer] generated this result transmitted ref erence range: 0.01 - 0 .08 K/L. The refe rence range was not u sed to interpret this result as normal/abnor mal. Immature 1 % 0-1 Granulocytes-Relative (test code = 2801) Lab Interpretation (test Abnormal code = 82858-7) [facility] W/PLT COUNT & AUTO [id number] 04:58:00 Test Item Value Reference Range Interpretation [...] 0-0 (BEAKER) (test code = 413) POCT-GLUCOSE [id number] 21:32:00 Test Item Value Reference Range Interpretation Comments POC-GLUCOSE METER 128 mg/dL 70-110 H : TESTED A T [facility] 6720 (BEAKER) (test code = DEV[place], 1538) [address]: Special Education Teaching Assistant/Techni min ID = [id number] for Lien Mansfield Vancomycin level, [id number] 18:09:00 Test Item Value Reference Range Interpretation Comments Vancomycin Tr (test code 6.3 ug/mL 10-20 L = 4092-3) ELIANA (test code = ELIANA) Special Education Teaching Assistant ID - DBIf vancomycin trough level > 20 mcg/mL, hold next vancomycin dose, and contact MD and pharmacist. Lab Interpretation (test Abnormal code = 59215-2) [facility] HospitalVANCOMYCIN LEVEL, [id number] 18:09:00 Test Item Value Reference Range Interpretation Comments VANCOMYCIN TROUGH (BEAKER) (test 6.3 ug/mL 10.0-20.0 L code = 522) Special Education Teaching Assistant ID - DBIf vancomycin trough level > [...] PERCENT (BEAKER) (test code = 2801) POCT-GLUCOSE [id number] 17:36:00 Test Item Value Reference Range Interpretation Comments POC-GLUCOSE METER 124 mg/dL 70-110 H : TESTED A T [facility] 6720 (BEAKER) (test code = DEVON [place], 1538) 129[address]: Special Education Teaching Assistant/Techni min ID = [id number] for Jaswinder Jefferson Tissue [id number] 14:24:00 Test Item Value Reference Range Interpretation Comments Case Report (test code Surgical Pathology = 104) Report Case: [id number] Authorizing Provider: Sarkis Laboy, Collected: 10/01/2020 09:43 AM Ordering Location: [place] [address] ccu Received: 10/01/2020 01:48 PM Pathologist: aP Peters MD Specimens: A) - Biopsy, Gastric, random biopsy B) - Gastric, gastric erythema biopsy DIAGNOSIS (test code = z4vxxHUbQCWdd6mlSIGunN 3220) FuZzEwMzNcZnRuYmpcdWMx IHtccnRmMVxlcGljOTIwMl xmzlTyOYKzoVBlG4Pvylrk GRlnTN0wHM1fyPtqiJCfaB UrDCWnScOzk0gpo677bVVt b2peRYVWldbekCd5dYvlJ4 7be9U5IyuoG82aqEItNBbm bGFpblxmczIwIEEuIFNUT0 2UT4ibFMMDGoUFTNKLIrJA O6ECNAbGHC9WO22VQHaeRt cBENXVMKX2OXJmghu6OYKv QMTNTwFLCIfdMVFYF4YUKS dJVEggTUlMRCBDSFJPTklD QJuHHPJQNFHPJFiVC2ZNEH DLHcTVCsNxZh4KFEfgLY2C HYPTZO4SOUTAKHWWWBiNZ1 rBHJDqpbu7KMHrDMKYBFyN MDsBQX9VB47ZEQUURXYLAY 7DPHOuR0kPV10YIxLRUbSE VElWRSBHQVNUUklUSVMgV0 bCZFWVR8NDACBHH5RXIbqD VBvuSOOisEOaOC5dH8MUCN hCXjKSQIFDPmcpV0EXVL8s IsEUMMXACiUfRz2NOOswJL NLJZ4AXRCGZNlFUM1EF2PU JWCMZ0imCIJcdZVdND2sGg NCPDQDClJkVb5KVZMCI4PS CBOOXKFWZtHRSOYBPX2NGH SefYLgLPJazvTHUgPPCT4B QUNILCBFUllUSEVNQSwgRU 1BV2GTE7PQLfIILSIHW6UH XUWIU8VABMOSKpphGTDeoH RtSN8mR5aGMbOLEsYDQJMM U7DpX7nNULBAIKoLOLYHVw 4TGITyAY1SE4JRNcGiK1ES VFJJVElTIEFORCBWRVJZIE GYE1QRSQJILQiEFMUEELFr ciAgICAgICAgICAgICAgLS AQVK3OUbQsJKGTVRKFLHWC I20SKIISVN0QKGOGRSNBQZ JUTFkgREVOVURFRCBXUElU DRDZVDVCABDdzsm0UQLdCT BXQVJUSElOIFNUQVJSWSBT VEFJTiBORUdBVElWRSBGT1 RxFR8iKApJS5SJUOnSO3Ji U5JVVT7ZW76ZPVOinai4WW VqZOUGMXkHKTyBGFUWI7Ha SL0CXAIGZT7FJCYLPMHACA oOZ7mWFYNZJJVVGVFHZGKm B1LgH7AFG0fEV60BDIDcaa 51BNR9WxOfb4G3KZJ6FOJs BDSfy2woZEDiuBAxOhJoXs NcZnRuYmpcdWMxXGRlZmYw s6mxu643sFNuu9fyTFRcPp D2kOKaXOQkxJAgM022QIVy YLkgp3dnj7QjDKWctTQey8 T2TFKNfqrdzIe5sXdgN64z c8W1VfgzL9rmRKBzHXLzJ9 PbPV1qUSZnRxh7QQI7FME3 BVOvYLLxR0UaZO3xFLTzoF UwPSv4t3apuIljVUOhDEP6 t7qbUKpkgsPnFQ2ydc3mfR y3h3szhoNyOOAfQYNslGOJ GQZxT2SmhIivGz2lxMi8yN hzUzbrGGG5Bzw6WE4rrx31 ftr7wLqvLCUqzouiAlJ4UW soSONevvjdKRl0AXxoHFZn yDS8BFGjkLDpF1NrSMCvPR 5jjkj6SJZ0DBwoOPDsGuS9 NDBcaGVhZGVyeTcyMFxmb2 82WUG5TnNtCY5mC6Zsx6H7 rJ4mdGSuNUDrrXJkBmBvET Utxe2xrOKuNJvih8IxGTF8 gaU2xSSdtMSuJEQuBgX7BW dqQV1qjz59SKHvGEZ3xw7n bGNccGdicmRyaGVhZFxwZ2 QwGJKwx854SJUfW6DcIAIs o4I4hpEaFfRwMZFosKV8qp O8XHTkOD3gxjjsp9seALis QRagAFRzzrK4zcM3ERIiwT IrH3OktZ7yCLKwRV2kuaid d1tiZUI5NEdfWWEgLDD1Na EtZLDsg5Eoeup9GqGas6Vj jLSnXVpwV99vz050XNPnjg SrJ4norVAqptnjwFYoldjp LNpsevJ9ZJNgSDkmavcnDC ZgBLrhR8vhEkNwWUUzgKss FQpno1ZuFCCjVDNxBqNnkQ BsFZBhErs5EBIajVEwCVZw FaTpE0qjqbruWtWBKJOdt4 mwR2dhlQTLvGWtH3ZfBGzn epGlVKvePTbpGOOvXBK4IL 38XQweVIZven33 CPT Code(s) (test code y4mwdICxNQTvqPX2IdUwKU = 3357) Ige6klt1UtvGSzpDCeGRhp wWEaegWjfi12vIA3bJ95KN 3cHPWuNbL1PACspaS0Mhf2 HIMcAYTjbACaD446j5bzm0 gnnvHlxAU7uGbxXINeRHVp YWluXGZzMjAgODgzMDUgWC VxBKJ3RWYpHaRHHmcfYOG6 CLINICAL HISTORY (test q0lsnCGiQKXuzGC8MpOiQD code = 3356) Epk3rsy5TtjLFtbSUvXVyx uSLzvuZchi09sJE6gI22FX 2cWBWuXpU3MRZnpdB3Nhy2 FJLvIMDxcEXoU151x7kpj6 ennsVuqRS8zSdjCFUzQAYk HNziGCQaRcDelMTpXZ2nTR Bhcn0= SPECIMEN SOURCE (test q1shuCTcULEriOC9OeUbQL code = 3377) Nea1ssw3KitESkyMDjJVmo hWIloyNicj01cOB2hC65KW 4bSWMbQcX5BGNsboF4Hqc6 YUXhYBPpbMCoL318w8ydg5 jyglAzrLS2hChnHRQlAZXw UCtuVMQpJmYbON2tVKypd6 XwkVQpbWpzJHRWCrHcL6Od aOZgA4nnPRV2 GROSS DESCRIPTION (test m3tamNCmETFyyMTzLfXvMV code = 3366) VwVVCdh6ifLZWrmWWzRyYx MzNcZnRuYmpcdWMxXGRlZm Ljs1zte851jWBpy2pnXIIq HqF3yVIrTLViyFEsL744j9 lik0tfmeSzuHH9EGRwLOH7 LVzieqXscuB3YBufbEHtJj G7NXzohwCaYYsiqjIbcgFk Osr6IHKbA185ETU2oRqkr5 qtUPQ9UARsDHHgLdFeYa2a tYJmL086JQAvXJJYCYEfoC b4MDTkszSzurFrdAMUk028 G959z8xuNVRdbkOpuNhXsz fkw7hcA211RVRttRZtedDo LtLkNZJkrFWqiGR7LEGrIA 6epwjaUbHhXB3bomadArKx KN1pekb8AhLvYM3kpovfLg OwNSdxKGVcxtxgLXSgy9Um bltsNS2aJ8Xbz7F8oU1jeN JySBJptMRhZtYaAYEznu5b lFKcRAngm5WeMCL0gvC6xR DxjKDcVONyFU40Lfksl6Qm PlnbGHV1VIQuthDcf6Cqc3 rtBrHgfnLgF6ulG3MsBFWl IYFnJPZbEqEgpnGyb3Byj9 MzxIGoyRk6b6lgYYHeJCPt iVowp8wgUPI6KNOwR8X3eN Erx4oqIXgoMXLsmGC8ctdb EEhdBBQpayG4shnwZFvfBQ UyoGH7gbtkLDcnWUCiHcH7 konlSNlzFYDyLHX8UNlsa4 21ROT8NFgjHwomRVetLYQa bmNvbnRccGduZGVjXHBsYW luXHBsYWluXGYwXGZzMjRc wFucoEcdsR2nPdNmDcOyUC rlTO6uVFSsV4sxrMDdMDSj RHIxH0rtRrQzwM3hbQujIV xmczIwIEEuICBSZWNlaXZl MOWnraGxq9HpTZamvfEhCI GcnCHkWSYkMOFwBLStQI78 N5QrrbNfDJrsEEQkTURakI 7wEH32mARanuYsoaDgWnbf i8FtlJKiKhhtuRR0BtHroo NjGCG5HB4xaEkzdhU5nERx sILlRsVxR41kyxWlVI2eFV V3kxkwYoU2wNU4cwYpXwOs D89xoI1fP1RuPAJwi4BvRG awXX4okS2zKZhnoGJlIELo ILBnlKq8KVQwNFXmphCzb2 SbkOi7hCSmEQvhKFMheW4c jW8fJMWzOMGrwinxADBaYw 7rKOBvZ3YocmKzNFmuSRId ol3ysJrbJSokKuPxFYVtdF axWLZymKyopyLpclEvPW0o YXCdG2Afy6Qzu90fzoHxFt IgCOPxBHHvK1RkpIWuIvSp aXMgYSAwLjIgeCAwLjIgeC BmJoJeE47jpYMlHFPkajio nMwcd2XtQXCeWOalUJ47JR doaWNoIGlzIGZpbHRlcmVk MKBgGWRczTRdnPH2ZENusR 3vuY78dtObsvMZBP0dcWVo HJUbluHVrIndvyGDnzb1GW xsZXMsIFBBLCBIVCAoQVND UClccGFyfQ== MICROSCOPIC DESCRIPTION x9puyFTiUFXtiQS4YdPpKV (test code = 3371) Yoz8vnp5ZlhAUzmQDdNGdk rNDcasTlew72qIS4rU22TR 1oBBCmDfJ3SSIiarK1Nzd4 DYMnMEMviURcZ714x4fyy5 mrqdLnmJK8zLrtKUJgYPXm MCvtHTQdCoTnKWYoMs8qdB VkLlxwYXJ9 SPECIAL STUDIES (test o4yxpUJhZBSwr5dgMLAljL code = 3376) FuZzEwMzNcZnRuYmpcdWMx QAexboOtEBayl6LbA7FiSe AwMFxhbnNpXGRlZmxhbmcx NVZhUFH2xnBpHUKeYAnsSR IuZAciTb6zhYOcgJdvUiHa ABEty8mlwjVMmrqicBc9p7 kjLTPdOaH4uAPrMZtbO2zh ktIbzEEwZ9DacMDiqMc7s9 klHzDqWkL8kGWeYEsaM3qy ukXkwNYeROFjHVv1gU69IF EiaK4dcWVsETycajEvPqE6 ENwwUDKaUcE8CYRerUIqUC BvO0fqHFEvNBuxQFUiBKef kPKuXWD6fBzcs3Z1rRKksJ YvpXptUeXdErStZgLKg8Fd AYi9sBeaV7WaHMAiMrX8mM QgUGFyYWdyYXBoIEZvbnQ7 uAtwldHru50zyZYaYCEeTP EnUiBjaZveUOPoGANVv5Zd pVquWAV9zMp4sLvxPseqVA N8Jgp7KF2kxs51oru9iZcp ZHWsscemSeN5EBrtYBRfpp iaLVu2PXugGCJmlRP8RIGf gKZrO1JeGOBaHH0qaxu7EO D2KVdkQFJqJvM2FPUzkSOz PBTipGllQElyk574AND4Vw BrXA4aN1Mxg8Z2gM4wtWMw LABgbBJwSyOjCWTnbl2ouU SkWUfmz2RfIJP7miF7aLYs uFFwHNObBZ65Vlbqr1VuLl bjt6XeS56pkND8HWqnb6iv AB9vNdC8pnRqUAyyf8uaeT 3yPcS6PAkaSH2lBR2xZTVj fA9fxmjhLFVjScWdbsrnPA FfyFspzqPgXl7qjMjoMBI4 NWwnK6iomW2oJwP8JHhmU2 dlmW7iZUr5XTszqZU5WQFq eZ9kLO7anykga9kiOOqkSE rrCUJhybZ3tzM0QDQgqRQh J1TaeE2oXSJhOD0ngnfgi0 sdHIN1HFkiUPMmMMK4YgSs EKYhe1Isirk6SdIgx6BsoJ FrCCwiE14st867LONcftTg M3ucuJTapkcfiCByaygsEW amheG6EIBiNUPxRTluNWMq XGZzMjJcbGFuZzEwMzNcaG ljaFxmMVxkYmNoXGYxXGxv T6dkKrQnO1TcZLSoCmDzKG utOOnbkEQvbDBjkPY8uS4x UA4yJFThrZKyJ3UzZPAyaq YfoWXlUXP6uNFqcBMzDC2e HZitjKLok1sio9JqY8kslO trrGV2ZE3gTPLeHQEaCCml n6JunM8hQclrmLEpmoucXM xmczIyXGxhbmcxMDMzXGhp V6hyVsBuEANivUtpEUshx8 NoXGYxXGNmMlxmczIyXGx0 cmNoXHBhclxwYXJccGxhaW 4zUvYgWcEuGpzhDS2zHDEp G8ujdDNyKRKpFAFyU5fqMx AjzY2hvPbyFMvnYePsFeHt MjFGm286ey3vRLAvwLPlsg ZJxGIxmF4fTPjiMKocBIzy hYVmGNeud4ldHUErs5f0cV UbDXYiftCsl4kdGIgxbgEb JKNcuOIdbZMwRCJcm82hAT ryyJjgaQmlJDIlr0QvfAlt k4CpGsYtUOnjg5DsO66hrI JvbCBzbGlkZXMgcnVuIGFs k13th8ceTRTlOnI6dTDmgO K8kFWufSDhk8VifZbsVSGc i4okIQXvjx9hlpotkQMzr1 CgqR9ysuvhDNcixSAtpgIt TLZuc1v8bZWlMDCoNGYsIE iruSx3AEAif347pa1pxmU8 hFGuNYW7ACdwJJGnOMNbbd UgZXZhbHVhdGVkXHBsYWlu XGYxXGZzMjJcbGFuZzEwMz NcaGljaFxmMVxkYmNoXGYx GSiuU3tpShUjS3AsSLSxAj QrcGYsZ2ilxLWvQWTnFVjx XGYxXGZzMjJcbGFuZzEwMz NcaGljaFxmMVxkYmNoXGYx UYuvQ4jnEeDrN2XnILBeNx IgIFxwbGFpblxmMVxmczIy MPgkmrviQMHxVKrsR7teZd BeTTDplZriECkcl2YuLEEq OONkAkoefmIkGCk0fwRaJY BhclxwbGFpblxmMVxmczIy GVovomviKSBvTDlwI8whLx QwKHAmcFtuQEieh1UmHSTs XGNmMlxmczIyIEltbXVub2 aif9HcK1rkpNhbqSU0RJSr A0vesPAtvIF3IUZ0eO3vOV upnzVlEOHxi3FdHWAxTGTt IaL4bS7ySGP0KjPJnHlsUU BsYWluXGYxXGZzMjJcbGFu ZzEwMzNcaGljaFxmMVxkYm WzJKNrCVuwC6qaLpDwL9Eu YDCpJfFadVjlGTtnXCb5Yc xwbGFpblxmMVxmczIyXGxh auqbHZBsJWgmT8smFvYjMT PuqUspDSrhm5QqLLFzOCWi MlxmczIyIHMgTWVkaWNhbC HNRS67PZPoJBVjrFqisL3r kPKCDKRedvV4b3X2NAzkIF SiBDe0LKleuaBkGBHxmY5q YBOnLR2sXXu9tpSsETNfq6 BgEH7aOOVluNBmHAY7SPIy y3XtR3Ioj7JgURDmQUBfku 1bmpSwHrEXlLHgLBDjyn00 MDLcYP5vV4lrAWLqPCQeki HkiXYop4NjLPVcxQX2jGQy ZS1CItPIz53eFDZbIDBAdx WpTVPprIpmzKK6vqH7kG8b LiBUaGUgRkRBIGhhcyBkZX Bwvv7uhmQeMAVrEDXof0Nz aZYljFKejeMgR7Njv6XiKU Jlvu07WLixcORzpz30QW3v L5Qtn8IgdX3aNMeiBXXbs2 TsiGNuzXPcZBCqt4GhL8ln zsimDHsadJLfbO8eYNRnTJ f8RBJrn9FlTYAvo1JaLuHk qxIcCHJfTKHbBPAueU03BE M2pEfknCjsghQaMW5oSWDe rbNyILZsYAJklY1hBSvggf OfZRMithB7m2D9SAugHSMr liRnWrhkGND7qzXpvrL5eT LkA2agwvbzBUdnQONhi1Co cP7twGUWqDMbo8PqoWGclY ORjKMqGG9ifzHgVN5mUUU9 ODggKENMSUEtODgpIGFzIH N0WWnqXahnDMQ0uqMiTEBg i0ToJZsfB7beD18viOtxiC t1rSZusKwqpVHptHTcCNUj khW8u5G5ZXVdp2QdvwfcFS BsYWluXGYyXGZzMjJcbGFu ZzEwMzNcaGljaFxmMlxkYm CnEXRlHHkpC1zfAaPoSkWx RjmsUMZ1xT== Gross assessment was [facility] performed at ([facility], = 2777) Department of Pathology, [address] [place] [address], Technical component was [facility] performed at ([facility], = 2778) Department of Pathology, [address] [place] [address], Professional component [facility] was performed at ([facility], code = 2779) Department of Pathology, [address] [place] [address], [facility] [id number] 14:24:00Surgical Pathology Report Case: [id number] Authorizing Provider: Sarkis Laboy, Collected: 10/01/2020 09:43 AM OrderingLocation: [place] [address] ccu Received: 10/01/2020 01:48 PM Pathologist: Pa [...] OR CARCINOMA Signing Pathologist Direct Phone Line: [phone] signed by Pa Peters MD on 10/02/2020 at 2:24 [id number] X 2, [id number] [id number]. GastricB. GastricA. Received in formalin labeled the [...] evaluated Immunohistochemistry technical testing was performed at [facility], Pathology Laboratory where it was developed [...] qualified to perform high complexity clinical laboratory testing.[facility], Department of Pathology, [address] [place] [address], [facility], [facility], [address] [place] [address], [facility] Neelam fl[facility], Department of Pathology, [address] [place] [address], IIAA-GLUCOSE [id number] 11:33:00 Test Item Value Reference Range Interpretation Comments POC-GLUCOSE METER 124 mg/dL 70-110 H : TESTED A T [facility] 6720 (WENDI) (test code = DEVON Serrato [facility], 1538) 510[address]: Special Education Teaching Assistant/Techni min ID = [id number] for Jaswinder Jefferson POCT-GLUCOSE [id number] 08:15:00 Test Item Value Reference Range Interpretation Comments POC-GLUCOSE METER 106 mg/dL 70-110 : TESTED A T [facility] 6720 (WENDI) (test code = DEVON MADR[place], 1538) 65773: Special Education Teaching Assistant/Techni min ID = [id number] for Jaswinder Jefferson Comprehensive metabolic [id number] 05:17:00 Test Item Value Reference Range Interpretation Comments Protein, Total (test 6.1 See_Comment [Autom ated code = 2885-2) message] The system which generated this result transmit altagracia reference range : 6.0 - 8.3 gm/dL . The reference range was not u sed to interpret th is result as normal/abnormal . Albumin (test code = 2.6 g/dL 3.5-5 L 03620-4) Alkaline Phosphatase 85 U/L 40-150 (test code [...] (test code = 7.7 mg/dL 8.4-10.2 L 89224-1) AST (test code = 17 U/L 5-34 1920-8) ALT (test code = 9 U/L 6-55 1742-6) EGFR (test code = 35 mL/min/1.73 [place] [address]-8) NOT ACCURATE CREATININE CLEARANCE IN PREDICTING GLOMERULAR FILTRATION RATE . ESTIMATED GFR I S NOT APPLICABLE FOR DIALYSIS PATIEN ELIANA (test code = ELIANA) Special Education Teaching Assistant ID - EDASI Lab Interpretation Abnormal (test code = 59692-9) [facility] [id number] 05:17:00 Test Item Value Reference Range Interpretation [...] S NOT APPLICABLE FOR DIALYSIS PATIEN TS. Special Education Teaching Assistant ID - EDASICBC W/PLT COUNT & AUTO [id number] 04:32:00 Test Item Value Reference Range Interpretation [...] PERCENT (BEAKER) (test code = 2801) POCT-GLUCOSE [id number] 21:36:00 Test Item Value Reference Range Interpretation Comments POC-GLUCOSE METER 146 mg/dL 70-110 H : TESTED A T [facility] 6720 (BEAKER) (test code = [place], 1538) [address]: Special Education Teaching Assistant/Techni min ID = [id number] for Johana Vasquez Hemoglobin [id number] 15:28:00 Test Item Value Reference Range Interpretation Comments Hemoglobin A1C (test code = 4548-4) 5.6 % 4.3-6.1 Lab Interpretation (test code = Normal 01268-7) [facility] [id number] 15:28:00 Test Item Value Reference Range Interpretation Comments HEMOGLOBIN A1C (BEAKER) (test code = 5.6 % 4.3-6.1 368) CBC W/PLT COUNT & AUTO [id number] 12:44:00 Test Item Value Reference Range Interpretation [...] PERCENT (BEAKER) (test code = 2801) POCT-GLUCOSE [id number] 11:11:00 Test Item Value Reference Range Interpretation Comments POC-GLUCOSE METER 125 mg/dL 70-110 H : [facility] (test code = [facility], 1538) 18[address]: Special Education Teaching Assistant/Techni min ID = [id number] for BE LL, BEAULA Vancomycin level, [id number] 10:39:00 Test Item Value Reference Range Interpretation Comments Vancomycin Rm (test 4.8 ug/mL code = 19053-5) ELIANA (test code = Reference Range: No ELIANA) NormalsOperator ID - COLBY Rodriguez [facility] LEVEL, [id number] 10:39:00 Test Item Value Reference Range Interpretation Comments VANCOMYCIN RANDOM (BEAKER) (test 4.8 ug/mL code = 523) Reference Range: No NormalsOperator ID - COLBY CPOCT-GLUCOSE [id number] 08:38:00 Test Item Value Reference Range Interpretation Comments POC-GLUCOSE METER 119 mg/dL 70-110 H : [facility] (test code = [facility] [employer] [facility], 1538) [address]: Special Education Teaching Assistant/Techni min ID = [id number] for BE LL, BEAULA SARS-CoV2/RT-PCR (Asymptomatic ONLY)2020-10-01 08:13:00 Test Item Value Reference Range Interpretation Comments SARS-COV2/RT-PCR Negative Not Detected, (test code = Negative, See 73355-5) external report for linked test SARS-COV-2 [facility] PERFORMING LAB (test code = 45178-0) ELIANA (test code = Negative result for [...] of the Act. Fact Sheet for Healthcare Providers:https://www.Notify Technologyl.[employer]ant[employer]/sites/default/f dorys/product/documents/F act_Sheet_HC_Providers_L blu_ZTWP-GwM-3.pdf Fact Sheet for Healthcare Patients:https://www.Dwllr.[employer]/sites/default/fi les/product/documents/Fa ct_Sheet_Patients_Lyra_S ARS-CoV-2.pdf Performing Laboratory:[facility] [place] [address] [facility] ([facility])2020-10-01 08:13:00 Test Item Value Reference Range Interpretation Comments SARS-COV2/RT-PCR (test Negative Not Detected, Negative, code = 5132354) See external report for linked test SARS-COV-2 PERFORMING LAB [facility] (test code = 9777789) Negative result for this test determines that [...] 564(g) of the Act.Fact Sheet for Healthcare Providers:https://www.FaceBuzzidel.com/sites/default/files/product/documents/Fact_Shee s_MI_Poxvsehpz_Waiz_QFFW-ZgQ-0.pdfFact Sheet for Healthcare Patients:https://www.FaceBuzzidel.com/sites/default/files/product/ documents/Aypm_Hvhqj_Ltadposn_Sklp_EEGC-PtR-1.pdfPerforming Laboratory:[facility], [place] [id number] 06:20:00 Test Item Value Reference Range Interpretation Comments Ferritin (test code = 61.09 ng/mL 5-275 2276-4) ELIANA (test code = ELIANA) Special Education Teaching Assistant ID - ASHLEIGH L Lab Interpretation (test Normal code = 70871-6) [facility]it[facility] and [id number] 06:20:00 Test Item Value Reference Range Interpretation Comments Vitamin B12 (test 267 pg/mL 213-816 code = 2132-9) Folate (test code = 11.30 ng/mL See_Comment [Automa altagracia 2284-8) message] The system which generated this result transmit altagracia reference range : >=7.00. The reference range was not used to interpret this result as normal/abnormal . ELIANA (test code = ELIANA) Special Education Teaching Assistant ID - ASHLEIGH Day Lab Interpretation Normal (test code = 53039-1) [facility]ERR[facility]IN[facility] 06:20:00 Test Item Value Reference Range Interpretation Comments FERRITIN (BEAKER) (test code = 61.09 ng/mL 5.00-275.00 361) Special Education Teaching Assistant ID - ASHLEIGH LVITAMIN B12 AND [id number] 06:20:00 Test Item Value Reference Range Interpretation Comments VITAMIN B12 267 pg/mL 213-816 (BEAKER) (test code = 774) FOLATE (BEAKER) 11.30 ng/mL See_Comment [Automated message] (test code = 362) The system which generated this result transmitted ref erence range: >=7.00. The reference range was not used to interpr et this result as normal/abnormal . Special Education Teaching Assistant ID - ASHLEIGH George, TIBC, % sat. (without ferritin)2020-10-01 06:04:00 Test Item Value Reference Range Interpretation Comments Iron (test code = 2498-4) 17.0 ug/dL 40-160 L TIBC (test code = 2500-7) 323 ug/dL 250-450 Iron % Saturation (test 5 % 20-55 L code = 2502-3) ELIANA (test code = ELIANA) Special Education Teaching Assistant ID - ASHLEIGH L Lab Interpretation (test Abnormal code = 49441-2) [facility], % SAT. (WITHOUT FERRITIN)2020-10-01 06:04:00 Test Item Value Reference Range Interpretation Comments IRON (BEAKER) (test code = 547) 17.0 ug/dL 40.0-160.0 L TOTAL IRON BINDING CAPACITY 323 ug/dL 250-450 (BEAKER) (test code = 769) IRON % SATURATION (2) (BEAKER) 5 % 20-55 L (test code = 2590) Special Education Teaching Assistant ID - PIAYA LPOCT-GLUCOSE [id number] 05:23:00 Test Item Value Reference Range Interpretation Comments POC-GLUCOSE METER 116 mg/dL 70-110 H : TESTED A T [facility] 6720 (BEAKER) (test code [facility], = 1538) [address]: Special Education Teaching Assistant/Techni min ID = [id number] for CORRY CASAS JUNIE CBC W/PLT COUNT & AUTO [id number] 03:26:00 Test Item Value Reference Range Interpretation [...] (BEAKER) (test code = 2801) COMPREHENSIVE METABOLIC [id number] 03:22:00 Test Item Value Reference Range Interpretation [...] S NOT APPLICABLE FOR DIALYSIS PATIEN TS. Special Education Teaching Assistant ID - DBCBC W/PLT COUNT & AUTO [id number] 20:14:00 Test Item Value Reference Range Interpretation [...] PERCENT (BEAKER) (test code = 2801) POCT-GLUCOSE [id number] 20:12:00 Test Item Value Reference Range Interpretation Comments POC-GLUCOSE METER 134 mg/dL 70-110 H : TESTED A T [facility] 6720 (BEAKER) (test code [facility], = 1538) 51598: Special Education Teaching Assistant/Techni min ID = [id number] for ELIDALela YESSENIA JUNIE CBC (HEMOGRAM ONLY)2020-09-30 15:28:00 Test Item [...] 0-0 (BEAKER) (test code = 413) POCT-GLUCOSE [id number] 14:32:00 Test Item Value Reference Range Interpretation Comments POC-GLUCOSE METER 106 mg/dL 70-110 : TESTED A Nereida [facility] 6720 (WENDI) (test code = [place], 1538) 29494: Special Education Teaching Assistant/Techni min ID = [id number] for CHUY SWANN HEMOGLOBIN [id number] 11:57:00 Test Item Value Reference Range Interpretation Comments HEMOGLOBIN A1C (WENDI) (test code = 5.6 % 4.3-6.1 368) U/S, ABDOMINAL, [id number] 11:53:00Abdomen limited area? Add comment if clarification is needed.->Right upper quadrantReason for exam:->liver cirrhosis; ETOH abuse [facility] : 1950 [...] MDReport Verified Date/Time: 09/30/2020 11:53:08 US abdomen [id number] 11:53:00Interface, External Ris In - 09/30/2020 11:55 [...] signedby: CAITY HERNADEZ MD on 09/30/2020 11:53 [facility] + Reflex to Culture 2020-09-30 10:53:00 Test Item Value Reference Range Interpretation Comments Color, UA (test code Light Yellow = 5778-6) Clarity, UA (test Clear code = 5767-9) Specific [place], UA 1.014 1.001-1.035 (test code = 5811-5) pH, UA (test code = 6.0 5.0-8.0 5803-2) Protein, UA (test 200 mg/dL Negative A code = 57235-7) Glucose, UA (test 50 mg/dL Negative A code = 365) Ketones, UA (test Negative Negative code = 2514-8) Bilirubin, UA (test Negative Negative code = 59048-8) Blood, UA (test code Small Negative A = 93991-6) Nitrite, UA (test Negative Negative code = 5802-4) Leukocytes, UA (test Negative Negative code = 5799-2) Urobilinogen, UA 0.2 mg/dL 0.2-1 (test code = 94519-4) RBC, UA (test code = 1 See_Comment [Autom ated 70872-8) message] The system which generated this result [...] . Bacteria, UA (test Few code = 28507-5) Mucus (test code = Few 8247-9) Squam Epithel, UA 1 See_Comment [Automate d (test code = 22935-2) messag e] The system which generated this result transmit altagracia reference range : /HPF. The reference range was not used to interpret this result as normal/abnormal . Hyaline Casts, UA 6 See_Comment [Automate d (test code = 23160-2) rajendraag e] The system which generated this result transmit altagracia reference range : /LPF. The reference range was not used to interpret this result as normal/abnormal . Specimen Source (test code = 2795) ELIANA (test code = ELIANA) Special Education Teaching Assistant ID - [auto]Special Education Teaching Assistant ID - tech Lab Interpretation Abnormal (test code = 43746-7) [facility] URINE [id number] 10:53:00 Test Item Value Reference Range Interpretation [...] = 514) SOURCE(BEAKER) (test code = 2795) Special Education Teaching Assistant ID - [auto]Special Education Teaching Assistant ID - techLactic acid, [id number] 10:00:00 Test Item Value Reference Range Interpretation Comments Lactate, Venous (test code 1.08 mmol/L 0.5-2.2 = 2872) ELIANA (test code = ELIANA) Special Education Teaching Assistant ID Eulalio SOTELO L Lab Interpretation (test Normal code = 44104-7) [facility] HospitalLACTIC ACID, [id number] 10:00:00 Test Item Value Reference Range Interpretation Comments LACTATE BLOOD VENOUS (2) (BEAKER) 1.08 mmol/L 0.50-2.20 (test code = 2872) Special Education Teaching Assistant ID Eulalio SOTELO LCBC W/PLT COUNT & AUTO [id number] 09:53:00 Test Item Value Reference Range Interpretation [...] = 2801) RAD, CHEST, 1 VIEW, NON [id number] 09:06:00Reason for exam:->? sob [facility] : 1950 Sex: MFINAL REPORT INDICATION: ? sob COMPARISON: None TECHNIQUE: Single fro ntal view of the chest. FINDINGS: Lungs and pleura: Clear lungs. No effusion.Heart and mediastinum: Normal heart size. Unremarkable mediastinal contours.Osseous structures: No acute abnormality.Other: None. IMPRESSION: No acute intrathoracic abnormality. Signed: Nahed Cleary MDReport Verified Date/ Time: 09/30/2020 09:06:18 Reading Location: [facility] Radiology Reading Room XR chest 1 view portable / [id number] 09:06:00Interface, External Ris In - 09/30/2020 9:24 AM CDTFINAL REPORT INDICATION: ? sob COMPARISON: None TECHNIQUE: Single frontal view of the chest. FINDINGS: Lungs and pleura: Clearlungs. No effusion.Heart and mediastinum: Normal heart size. Unremarkable mediastinal contours.Osseous structures: No acute abnormality.Other: None. IMPRESSION: No acute intrathoracic abnormality. Sign ed: Nahed Cleary Verified Date/Time: 09/30/2020 09:06:18 Reading Location: [facility] Radiology Reading Room [facility] COMPREHENSIVE METABOLIC [id number] 07:47:00 Test Item Value Reference Range Interpretation [...] S NOT APPLICABLE FOR DIALYSIS PATIEN TS. Special Education Teaching Assistant ID - [id number] 07:07:00 Test Item Value Reference Range Interpretation Comments PTT (test code = 12742-5) 25.1 See_Comment [ Automated message] The system [employer] generated this result transmitted ref erence range: 22.5 - 3 6.0 seconds. The re ference range was not u sed to interpret this result as normal/abnor mal. Lab Interpretation (test Normal code = 96012-5) [facility] HospitalPROTHROMBIN TIME/[id number] 07:07:00 Test Item Value Reference Range Interpretation Comments PROTIME (BEAKER) 14.2 seconds 11.9-14.2 (test code = 759) INR (BEMEREDITH) (test 1.13 See_Comment [Automat ed message] code = 370) The system [employer] generated this result transmitted ref erence range: <=5.90. The reference range was not used to int erpret this result as normal/abnormal . Effective 12/11/2018: PT Reference Range ChangeNew: 11.9-14.2 Previous: 11.7- 14.7RECOMMENDED COUMADIN/WARFARIN INR THERAPY RANGESSTANDARD DOSE: 2.0-3.0 Includes: PROPHYLAXIS for venous thrombosis, systemic embolization; TREATMENT for venous thrombosis and/or pulmonary embolus.HIGH RISK: Target INR is2.5-3.5 for patients wiht mechanical heart valves.[id number] 07:07:00 Test Item Value Reference Range Interpretation Comments PARTIAL THROMBOPLASTIN TIME 25.1 seconds 22.5-36.0 (BEAKER) (test code = 760) POCT-GLUCOSE [id number] 06:39:00 Test Item Value Reference Range Interpretation Comments POC-GLUCOSE METER 150 mg/dL 70-110 H : TESTED A T [facility] 6720 (BEAKER) (test code [facility], = 1538) 36874: Special Education Teaching Assistant/Techni min ID = [id number] for JUNIE ALICIA [id number] 00:00:00Ordered by an unspecified provider.[facility] ([facility])2020-01-26 13:29:00 Test Item Value Reference Range Interpretation Comments SARS-COV2/RT-PCR (test code = Negative Not Detected, Negative 0218528) SARS-COV-2 PERFORMING LAB [facility] (test code = 0908808) Negative result for this test determines that [...] 564(g) of the Act.Fact Sheet for Healthcare Providers:https://www.[employer]/sites/default/files/product/documents/Fact_Shee f_KF_Yifkwtong_Gzsy_HHLS-RzJ-7.pdfFact Sheet for Healthcare Patients:https://www.[employer].com/sites/default/files/product/ documents/Yiam_Upsdi_Nvlbhnps_Abbl_IJTE-QfA-9.pdfPerforming Laboratory:[facility] [place] [address]
--- NOTE | 2021-01-28 20:38 | RAD REPORT ---
EXAM DESCRIPTION: RAD - Hand Left 3 View - 01/28/2021 8:19 pm CLINICAL HISTORY: Pain;Swelling COMPARISON: Hand Left 3 View dated 02/26/2015 FINDINGS: Soft tissue swelling is seen affecting the hand, greatest along the dorsum of the hand. He kimmy vascular calcification is seen. No acute fracture or subluxation.
--- NOTE | 2021-01-28 20:40 | RAD REPORT ---
EXAM DESCRIPTION: RAD - Foot Right 3 View - 01/28/2021 8:19 pm CLINICAL HISTORY: Pain;Swelling COMPARISON: Foot Right 3 View dated 03/26/2020; Foot Right Wo Cont dated 09/21/2016; Hand Left 3 View d ated 01/28/2021 FINDINGS: Fracture is likely present involving the proximal phalanx of the fourth toe. Mild flatfoot deformity with small plantar calcaneal spur. Heavy atherosclerosis.
[2021-01-28] MEDS ORDERED: HYDROCODONE/APAP 5/325 MG TAB ONE (20:57)
[2021-01-28 21:00] LABS: Absolute Lymphocytes (CBC) 2.4 K/uL (0.7-4.9); Basophils % 0.8 % (0-1.3); Hematocrit 31.5 % (39.6-49.0); MPV 8.9 fL (7.6-11.3); RBC Red Blood Cell Count 3.59 M/uL (4.33-5.43)
[2021-01-28 21:19] LABS: Albumin 2.2 g/dL (3.4-5.0); Bilirubin Direct 0.3 mg/dL (0-0.2); Bilirubin Total 0.5 mg/dL (0.2-1.0); Potassium 3.6 mmol/L (3.5-5.1); Protein, Total 7.2 g/dL (6.4-8.2)
[2021-01-28] MEDS ORDERED: CLINDAMYCIN 600MG/D5W 600 MG/50 ML BAG IV ONE (22:19)
--- NOTE | 2021-01-28 22:34 | EDPHYS ---
Physician Documentation [facility] Name: Amaury Matamoros Age: 70 yrs Sex: Male : 1950 Arrival Date: 01/28/2021 Time: 18:11 Bed 14 Private MD: Garo Us ED Physician Moustapha Back HPI: 01/28 20:48 This 70 yrs old Male presents to ER via Wheelchair with complaints of Hand mh7 Swelling, Feet Swelling. 20:48 The patient or guardian reports pain, swelling. The complaints affect the left hand mh7 diffusely. Context: The problem was sustained at an unknown location, resulted from an unknown cause. 20:49 Onset: The symptoms/episode began/occurred 2 day(s) ago. Modifying factors: The mh7 symptoms are alleviated by nothing, the symptoms are aggravated by movement. Associated signs and symptoms: Pertinent negatives: cyanosis distally, decreased sensation distally, fever, nausea, numbness distally, tingling distally, vomiting. Severity of symptoms: At their worst the symptoms were moderate, yesterday, in the emergency department the symptoms are unchanged. 20:49 Also complains of pain of right foot toe pain and nails falling off over the past few mh7 months.. Historical: - Allergies: 18:23 PENICILLINS; ll1 - PMHx: 18:23 Cellulitis; Diabetes - NIDDM; Hypertension; ll1 - Immunization history:: Client reports having NOT received the Covid vaccine. Flu vaccine is up to date. - Social history:: Smoking status: Patient denies any tobacco usage or history of. ROS: 20:49 Constitutional: Negative for fever, chills, and weight loss, Eyes: Negative for injury, mh7 pain, redness, and discharge, ENT: Negative for injury, pain, and discharge, Neck: Negative for injury, pain, and swelling, Cardiovascular: Negative for chest pain, palpitations, and edema, Respiratory: Negative for shortness of breath, cough, wheezing, and pleuritic chest pain, Abdomen/GI: Negative for abdominal pain, nausea, vomiting, diarrhea, and constipation, Back: Negative for injury and pain, : Negative for injury, bleeding, discharge, and swelling, Skin: Negative for injury, rash, and discoloration, Neuro: Negative for headache, weakness, numbness, tingling, and seizure, Psych: Negative for depression, anxiety, suicide ideation, homicidal ideation, and hallucinations, Allergy/Immunology: Negative for hives, rash, and allergies, Endocrine: Negative for neck swelling, polydipsia, polyuria, polyphagia, and marked weight changes, Hematologic/Lymphatic: Negative for swollen nodes, abnormal bleeding, and unusual bruising. Exam: 20:49 Constitutional: This is a well developed, well nourished patient who is awake, alert, mh7 and in no acute distress. Head/Face: Normocephalic, atraumatic. Eyes: Pupils equal round and reactive to light, extra-ocular motions intact. Lids and lashes normal. Conjunctiva and sclera are non-icteric and not injected. Cornea within normal limits. Periorbital areas with no swelling, redness, or edema. Neck: Trachea midline, no thyromegaly or masses palpated, and no cervical lymphadenopathy. Supple, full range of motion without nuchal rigidity, or vertebral point tenderness. No Meningismus. Chest/axilla: Normal chest wall appearance and motion. Nontender with no deformity. No lesions are appreciated. Cardiovascular: Regular rate and rhythm with a normal S1 and S2. No gallops, murmurs, or rubs. Normal PMI, no JVD. No pulse deficits. Respiratory: Lungs have equal breath sounds bilaterally, clear to auscultation and percussion. No rales, rhonchi or wheezes noted. No increased work of breathing, no retractions or nasal flaring. Abdomen/GI: Soft, non-tender, with normal bowel sounds. No distension or tympany. No guarding or rebound. No evidence of tenderness throughout. Back: No spinal tenderness. No costovertebral tenderness. Full range of motion. Neuro: Awake and alert, GCS 15, oriented to person, place, time, and situation. Cranial nerves II-XII grossly intact. Motor strength 5/5 in all extremities. Sensory grossly intact. Cerebellar exam normal. Normal gait. Psych: Awake, alert, with orientation to person, place and time. Behavior, mood, and affect are within normal limits. 20:49 Musculoskeletal/extremity: Extremities: noted in the left hand: erythema, swelling, mh7 tenderness, noted in the right foot: tenderness, mild, noted in the left leg: amputation, ROM: intact in all extremities, Circulation is intact in all extremities. Sensation intact. Compartment Syndrome exam of affected extremity: is normal. no numbness, no tingling, no sensation deficit, no palor, no weak pulses, Joints: All joints appear normal with full range of motion. 20:49 Skin: cellulitis, that is mild, on the left hand. [facility] Vital Signs: 18:20 BP 132 / 84; Pulse 71; Resp 17; Temp 97.9; Pulse Ox 98% ; Weight 58.97 kg; Height 5 ft. ll1 2 in. (157.48 cm); Pain 10/10; 21:13 BP 176 / 89; Pulse 72; Resp 16; Pulse Ox 99% on R/A; zb 22:53 BP 172 / 81; Pulse 71; Resp 16; Pulse Ox 98% on R/A; zb 18:20 Body Mass Index 23.78 (58.97 kg, 157.48 cm) ll1 MDM: 22:12 Differential diagnosis: closed fracture, contusion, abrasion, cellulitis. Data [facility] reviewed: vital signs, nurses notes, lab test result(s), CBC, electrolytes, radiologic studies, plain films. Counseling: I had a detailed discussion with the patient and/or guardian regarding: the historical points, exam findings, and any diagnostic results supporting the discharge/admit diagnosis, the presence of at least one elevated blood pressure reading (>120/80) during this emergency department visit, lab results, radiology results. 22:30 Counseling: I had a detailed discussion with the patient and/or guardian regarding: the [facility] need for further work-up and treatment in the hospital. Response to treatment: the patient's symptoms have markedly improved after treatment. Refusal of service: The patient/guardian displays adequate decision making capability and despite a detailed discussion of alternatives, benefits, risks, and consequences refuses: Admission to the hospital for further work-up and treatment. 22:33 Patient medically screened. [facility] 01/28 19:50 Order name: CBC with Diff; Complete Time: 21:22 [facility] 01/28 19:50 Order name: Basic Metabolic Panel; Complete Time: 21:22 [facility] 01/28 19:50 Order name: LFT's; Complete Time: 21:22 [facility] 01/28 19:50 Order name: Hand Left 3 View XRAY; Complete Time: 21:22 [facility] 01/28 19:50 Order name: Foot Right 3 View XRAY; Complete Time: : [facility] 01/28 19:51 Order name: Saline Lock; Complete Time: 20:52 [facility] Administered Medications: 20:53 Drug: HYDROcodone-acetaminophen 5 mg-325 mg 2 tabs Route: PO; zb 22:16 Follow up: Response: No adverse reaction; Marked relief of symptoms; Pain is decreased; zb RASS: Alert and Calm (0) 22:15 Drug: Clindamycin 600 mg Route: IVPB; Infused Over: 30 mins; Site: right wrist; zb 22:52 Follow up: Response: No adverse reaction; IV Status: Completed infusion; IV Intake: zb 100ml 22:52 Drug: morphine 4 mg {Note: RASS +0.} Route: IVP; Site: right wrist; zb 22:52 Follow up: Response: No adverse reaction; Marked relief of symptoms; Pain is decreased; zb RASS: Alert and Calm (0) 22:52 Drug: Zofran (Ondansetron) 4 mg Route: IVP; Site: right wrist; zb 22:53 Follow up: Response: No adverse reaction zb Disposition Summary: 01/28/21 22:33 Left Against Medical Advice Location: Home [facility] Problem: new [facility] Symptoms: have improved [facility] Condition: Stable [facility] Diagnosis - Cellulitis, Left Hand 7 - Phalanx Fracture, Right Foot 4th Toe [facility] Followup: [facility] - With: Private Physician - When: 1 - 2 days - Reason: Worsening of condition, Recheck today's complaints, Continuance of care, Re-evaluation by your physician Followup: [facility] - With: Remigio Fregoso MD - When: 1 - 2 days - Reason: Worsening of condition, Recheck today's complaints Followup: [facility] - With: Nav Mills MD - When: 1 - 2 days - Reason: Worsening of condition, Recheck today's complaints Discharge Instructions: - Discharge Summary Sheet [facility] - Toe Fracture, Ucec-lq-Vwxi [facility] - Cellulitis, Adult, Fxif-tx-Tthu [facility] Prescriptions: - acetaminophen-codeine 300-15 mg Oral tablet - take 2 tablet by ORAL route every 6 hours As needed as needed; 20 tablet; [facility] Refills: 0, Product Selection Permitted - Clindamycin HCl 300 mg Oral Capsule - take 1 capsule by ORAL route every 6 hours for 10 days; 40 capsule; Refills: 0, mh7 Product Selection Permitted Signatures: Dispatcher [employer] Bairon Reyes RN RN ll1 Moustapha Back MD MD 7 Alejandra Prater RN RN zb
--- NOTE | 2021-01-28 22:34 | ER ---
Nurse's Notes [facility] Name: Amaury Matamoros Age: 70 yrs Sex: Male : 1950 Arrival Date: 01/28/2021 Time: 18:11 Bed 14 Private MD: Garo Us Diagnosis: Cellulitis, Left Hand;Phalanx Fracture, Right Foot 4th Toe Presentation: 01/28 18:20 Chief complaint: Patient states: 1. L hand pain and swelling for 2 days. 2. Reports ll1 toenails falling off R foot for "years". Coronavirus screen: Client denies travel out of the [place] in the last 14 days. At this time, the client does not indicate any symptoms associated with coronavirus-19. Ebola Screen: Patient denies travel to an Ebola-affected area in the 21 days before illness onset. Initial Sepsis Screen: Does the patient meet any 2 criteria? No. Patient's initial sepsis screen is negative. Does the patient have a suspected source of infection? Yes: Skin breakdown/wound. Risk Assessment: Do you want to hurt yourself or someone else? Patient reports no desire to harm self or others. Onset of symptoms was January 27, 2021. 18:20 Method Of Arrival: Wheelchair ll1 18:20 Acuity: ALEJANDRA 3 ll1 Historical: - Allergies: 18:23 PENICILLINS; ll1 - PMHx: 18:23 Cellulitis; Diabetes - NIDDM; Hypertension; ll1 - Immunization history:: Client reports having NOT received the Covid vaccine. Flu vaccine is up to date. - Social history:: Smoking status: Patient denies any tobacco usage or history of. Screenin:12 Abuse screen: Denies threats or abuse. Denies injuries from another. Nutritional zb screening: No deficits noted. Tuberculosis screening: No symptoms or risk factors identified. Fall Risk Fall in past 12 months (25 points). No secondary diagnosis (0 pts). IV access (20 points). Ambulatory Aid- None/Bed Rest/Nurse Assist (0 pts). Gait- Impaired (20 pts.). Mental Status- Oriented to own ability (0 pts). Total Monahan Fall Scale indicates Low Risk Score (25-44 pts). Fall prevention measures have been instituted. Side Rails Up X 2 Placed close to Nursing Station Frequent Obs/Assesments occuring. Assessment: 20:55 General: Appears in no apparent distress. Behavior is calm, cooperative, appropriate zb for age. Pain: Complains of pain in left hand and right foot Pain does not radiate. Pain currently is 10 out of 10 on a pain scale. Quality of pain is described as aching, sharp, tender, Pain began 2-3 days ago. a couple months for pt foot. Neuro: Level of Consciousness is awake, alert, obeys commands, Oriented to person, place, time, situation. Cardiovascular: Patient's skin is warm and dry. Respiratory: Airway is patent Respiratory effort is even, unlabored, Respiratory pattern is regular, symmetrical. GI: No deficits noted. Derm:. Musculoskeletal: Amputation of left leg. Swelling present in left hand and right foot. Vital Signs: 18:20 BP 132 / 84; Pulse 71; Resp 17; Temp 97.9; Pulse Ox 98% ; Weight 58.97 kg; Height 5 ft. ll1 2 in. (157.48 cm); Pain 10/10; 21:13 BP 176 / 89; Pulse 72; Resp 16; Pulse Ox 99% on R/A; zb 22:53 BP 172 / 81; Pulse 71; Resp 16; Pulse Ox 98% on R/A; zb 18:20 Body Mass Index 23.78 (58.97 kg, 157.48 cm) ll1 ED Course: 18:11 Patient arrived in ED. mr 18:11 Garo Us MD is Private Physician. mr 18:22 Triage completed. ll1 18:23 Arm band placed on. ll1 19:25 Alejandra Prater, COURTNEY is Primary Nurse. zb 19:27 Moustapha Back MD is Attending Physician. mh7 20:19 Hand Left 3 View XRAY In Process Unspecified. EDMS 20:19 Foot Right 3 View XRAY In Process Unspecified. EDMS 20:55 Inserted saline lock: 20 gauge in right antecubital area, using aseptic technique. zb Blood collected. 22:13 Stephen tape right third toe and right fourth toe. dh4 22:14 Ortho shoe applied to right foot. dh4 22:34 Remigio Fregoso MD is Referral Physician. mh7 22:34 Nav Mills MD is Referral Physician. mh7 22:53 Patient has correct armband on for positive identification. Pulse ox on. NIBP on. zb 23:07 No provider procedures requiring assistance completed. IV discontinued, intact, zb bleeding controlled, No redness/swelling at site. Pressure dressing applied. Administered Medications: 20:53 Drug: HYDROcodone-acetaminophen 5 mg-325 mg 2 tabs Route: PO; zb 22:16 Follow up: Response: No adverse reaction; Marked relief of symptoms; Pain is decreased; zb RASS: Alert and Calm (0) 22:15 Drug: Clindamycin 600 mg Route: IVPB; Infused Over: 30 mins; Site: right wrist; zb 22:52 Follow up: Response: No adverse reaction; IV Status: Completed infusion; IV Intake: zb 100ml 22:52 Drug: morphine 4 mg {Note: RASS +0.} Route: IVP; Site: right wrist; zb 22:52 Follow up: Response: No adverse reaction; Marked relief of symptoms; Pain is decreased; zb RASS: Alert and Calm (0) 22:52 Drug: Zofran (Ondansetron) 4 mg Route: IVP; Site: right wrist; zb 22:53 Follow up: Response: No adverse reaction zb Intake: 22:52 IV: 100ml; Total: 100ml. zb Outcome: 23:07 AMA AMA form signed zb 23:07 Condition: stable 23:07 Discharge instructions given to patient, Instructed on medication usage, Demonstrated understanding of instructions, medications, Prescriptions given X 2. 23:07 Patient left the ED. zb Signatures: Dispatcher [employer] Mare Gill Donald 4 Bairon Rivera RN RN 1 Moustapha Back MD MD mh7 Alejandra Prater RN RN zb
[2021-01-28] MEDS ORDERED: MORPHINE 4 MG/ML SYR ONE (23:11)
[2021-01-28] MEDS ORDERED: ONDANSETRON 4 MG/2 ML VIAL ONE (23:11)
[2021-01-28 23:23] VITALS: TEMP 97.9
[2021-01-28 23:26] VITALS: BP 172/81; O2SAT 98
== END 2021-01-28 23:07 | disposition left against medical advice (07) ==
LOC: ER 18:07
DX: L03.114 Cellulitis of left upper limb (principal); S92.511A Displaced fracture of proximal phalanx of right lesser toe(s), initial encounter for closed fracture; X58.XXXA Exposure to other specified factors, initial encounter; E11.9 Type 2 diabetes mellitus without complications; I10 Essential (primary) hypertension; Z53.29 Procedure and treatment not carried out because of patient's decision for other reasons
CPT/HCPCS: 96365; 85025; 80048; 36415; 80076; 73130; 73630; 96375; 99284; J2405

== ENCOUNTER 2021-02-01 18:45 | Inpatient (IN) | payer OTHER ==
--- OUTSIDE RECORDS SUMMARY | 2021-02-01 18:50 | XMS REPORT | Continuity of Care Document ---
:1950 Author Organization [facility] t Address [facility] [place] [address] Care Team Providers Name Role Phone Lynda Espinoza MD Attending Clinician Niranjan Jackson MD Attending Clinician Lynda ESPINOZA Attending Clinician Unavailable Narda MAXWELL, Eric Attending Clinician Jose Ross MD Attending Clinician Lynda ESPINOZA Admitting Clinician Unavailable Payers Payer Name Policy Type Policy Effective Date Expiration Date Sour ce Number [employer]ICARE [id number] 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 00:00: Me dical site site 00 Center Liver Liver Disease Active [facility] cirrhosis cirrhosis 3- [facility] - 00:00: Medical 00 Pointblank Portal Portal Disease Active [facility] hypertensi hypertensi 3- Estrella kes - ve ve 00:00: Medical gastropath gastropath 00 Ce nter y y GI bleed GI bleed Disease Active [facility] 3[facility]18 [facility] - 00:[facility]: Medical 00 Center Allergies, Adverse Reactions, Alerts Allergy Allergy Status Severity Reaction(s) Onset Inactive Treating Comm ents Source Name Type Date Date Clinician Penicill Drug Active Rash [facility] ins Allergy 12-13 [facility] - 00:00: Medical 00 Center Penicill Adverse Active Info Not [facility] t amine Reaction Available [facility] Social History Social Habit Start Date Stop Date Quantity Comments Source Sex Assigned At [facility] Alcohol intake 2020-10-04 2020-10-04 Current drinker [facility] Elvis [facility] - 00:00:00 00:00:00 of alcohol [facility] (finding) Tobacco use and 2020-10-04 2020-10-04 Never used [facility] exposure 00:00:00 00:00:00 [facility] Smoking Status Start Date Stop Date Source Current every day smoker 2020-10-04 00:00:00 [facility] Medications Ordered Filled Start Stop Current Ordering Indication Dosage Frequency Signature Comments Components Source Medication Medication Date Date Medication? Clinician (SIG) Name Name amLODIPine 2021- No 2.5mg QD Take [address] [facility] [facility] [...] [address] [facility] [address] [facility] Hydrochloro Hydrochloro Yes Alfonzo [address] thiazide thiazide Mera in the Luke s - morning [facility] Pantoprazol Pantoprazol Yes Alfonzo [address] e Sodium e Sodium Mera [facility] Metoprolol Metoprolol Yes Alfonzo [address] Tartrate Tartrate Mera with food [facility] Ferrous Ferrous Yes Alfonzo [address] Sulfate Sulfate Mera [facility] Amlodipine Amlodipine Yes Alfonzo [address] Besylate Besylate Mera [facility] Gabapentin Gabapentin Yes Alfonzo [address] Mera [facility] Metformin Metformin Yes Alfonzo [address] HCl HCl Mera with a [facility] - meal [facility] Vital Signs Vital Name Observation Time Observation Value Comments Source Systolic blood 2020-10-03 19:17:00 111 mm[Hg] [facility] Diastolic blood 2020-10-03 19:17:00 61 mm[Hg] [facility] Heart rate 2020-10-03 19:17:00 75 /min [facility] Body temperature 2020-10-03 19:17:00 36.94 Latesha [facility] Respiratory rate 2020-10-03 19:17:00 17 /min [facility] Oxygen saturation in 2020-10-03 19:17:00 98 /min [facility] - Arterial blood by Medical Ce nter Pulse oximetry Body weight 2020-10-03 07:05:00 51.982 kg [facility] BMI 2020-10-03 07:05:00 20.96 kg/m2 [facility] Body height 2020-09-30 05:22:00 157.5 cm [facility] Procedures Procedure Date / Time Performed Performing Clinician Sourc e POCT-GLUCOSE METER 2020-10-03 18:09:00 Alice Jackson [facility] HEPATITIS B PCR, 2020-10-03 15:49:00 Narda [facility] HEPATITIS C PCR, 2020-10-03 15:49:00 Sarkis Laboy [facility] POCT-GLUCOSE METER 2020-10-03 11:48:00 [facility] POCT-GLUCOSE METER 2020-10-03 08:34:00 [facility] CBC W/PLT COUNT & AUTO 2020-10-03 04:35:00 Nate Fields [facility] CBC (HEMOGRAM ONLY) 2020-10-03 04:35:00 Delmi Peguero [facility] BASIC METABOLIC PANEL (7) 2020-10-03 04:35:00 Delmi Peguero [facility] ACTIN (SMOOTH MUSCLE) 2020-10-03 04:35:00 [facility] IGG [facility] ALPHA FETOPROTEIN (AFP), 2020-10-03 04:35:00 [facility] TUMOR MARKER [facility] TCHYD-9-HEVFVHRTWEK\\, 2020-10-03 04:35:00 [facility] SERUM [facility] ANTI-NUCLEAR ANTIBODY 2020-10-03 04:35:00 [facility] (GAMAL) [facility] BILIRUBIN, DIRECT 2020-10-03 04:35:00 Wendy [facility] CERULOPLASMIN 2020-10-03 04:35:00 Wendy [facility] HEPATITIS A ANTIBODY, IGG 2020-10-03 04:35:00 Wendy [facility] HEPATITIS B SURFACE 2020-10-03 04:35:00 Wendy, Kiah [facility] - ANTIBODY [facility] HEPATITIS B SURFACE 2020-10-03 04:35:00 [facility] ANTIGEN [facility] HEPATITIS B CORE 2020-10-03 04:35:00 [facility] Kulwindermary [facility] - ANTIBODY, TOTAL [facility] HEPATITIS C ANTIBODY 2020-10-03 04:35:00 [facility] Delfinaq [facility] MITOCHONDRIA M2 ANTIBODY 2020-10-03 04:35:00 [facility] - (IGG) [facility] PROTHROMBIN TIME/INR 2020-10-03 04:35:00 [facility] POCT-GLUCOSE METER 2020-10-02 21:19:00 Alice Jackson [facility] CBC W/PLT COUNT & AUTO 2020-10-02 17:29:00 Nate Fields [facility] VANCOMYCIN LEVEL, TROUGH 2020-10-02 17:29:00 Severo Martinez [facility] POCT-GLUCOSE METER 2020-10-02 17:24:00 Alice Jackson [facility] POCT-GLUCOSE METER 2020-10-02 11:21:00 Alice Jackson [facility] POCT-GLUCOSE METER 2020-10-02 08:03:00 Alice Jackson [facility] CBC W/PLT COUNT & AUTO 2020-10-02 03:39:00 Nate Fields [facility] COMPREHENSIVE METABOLIC 2020-10-02 03:39:00 Delmi Peguero [facility] POCT-GLUCOSE METER 2020-10-01 21:23:00 Alice Jackson [facility] HEMOGLOBIN A1C 2020-10-01 14:34:00 GerardDelmi crum [facility] CBC W/PLT COUNT & AUTO 2020-10-01 12:08:00 Adrienne Ortiz [facility] DIFFERENTIAL [facility] POCT-GLUCOSE METER 2020-10-01 10:58:00 Alice Jackson [facility] REPORT OF PROCEDURE - 2020-10-01 10:35:58 Narda [facility] ENDOSCOPY [facility] VANCOMYCIN LEVEL, RANDOM 2020-10-01 10:06:00 Meghann Grier [facility] TISSUE EXAM 2020-10-01 09:43:00 Narda [facility] UPPER ENDOSCOPY,BIOPSY 2020-10-01 09:14:00 Narda [facility] POCT-GLUCOSE METER 2020-10-01 08:23:00 Alexis Jacksonurad [facility] POCT-GLUCOSE METER 2020-10-01 05:11:00 Renetta Alice [facility] VITAMIN B12 AND FOLATE 2020-10-01 04:42:00 Ford Espinoza [facility] IRON, TIBC, % SAT. 2020-10-01 04:42:00 Ford Espinoza [facility] (WITHOUT FERRITIN) [facility] 2020-10-01 04:42:00 Ford Espinoza [facility] CBC W/PLT COUNT & AUTO 2020-10-01 02:44:00 Adrienne Ortiz [facility] - DIFFERENTIAL [facility] SARS-COV2/RT-PCR ([facility] & 2020-10-01 02:44:00 Nate Fields Ma [facility] - REF LABS) [facility] COMPREHENSIVE METABOLIC 2020-10-01 02:44:00 Nate Fields [facility] CBC W/PLT COUNT & AUTO 2020-09-30 20:01:00 Adrienne Ortiz [facility] DIFFERENTIAL [facility] POCT-GLUCOSE METER 2020-09-30 20:00:00 Alice Jackson [facility] CBC (HEMOGRAM ONLY) 2020-09-30 15:15:00 Nate Fields [facility] POCT-GLUCOSE METER 2020-09-30 14:20:00 Alice Jackson [facility] US ABDOMEN LIMITED 2020-09-30 11:32:00 Ford Espinoza [facility] BLOOD CULTURE 2020-09-30 09:45:[address] [facility] CBC W/PLT COUNT & AUTO 2020-09-30 09:22:00 Planejose angel [facility] BLOOD CULTURE 2020-09-30 09:22:[address] [facility] LACTIC ACID, VENOUS 2020-09-30 09:22[facility] URINALYSIS W/ REFLEX 2020-09-30 09:22:00 [facility] URINE CULTURE [facility] XR CHEST 1 VIEW 2020-09-30 08:39:00 Adrienne Ortiz [facility]/BEDSIDE [facility] HEMOGLOBIN A1C 2020-09-30 06:52:00 Malcolm Hernandez [facility] POCT-GLUCOSE METER 2020-09-30 06:27:00 Ford Espinoza [facility] PROTHROMBIN TIME/INR 2020-09-30 06:22:00 Malcolm Hernandez [facility] APTT 2020-09-30 06:22:00 Malcolm Hernandez [facility] COMPREHENSIVE METABOLIC 2020-09-30 06:22:00 Malcolm Hernandez [facility] REPORT OF PROCEDURE - 2020-09-30 00:00:[address] [facility] Plan of Care Planned Activity Planned Date Details Comments Source Future Scheduled 2020-07-[address] [facility] - Test 00:00:00 (12+) [code = [facility] DEPRESSION SCREENING (12+)] Future Scheduled [...] - Test 00:00:00 [code = COVID-[address] VACCINE (1)] Future Scheduled [address] [facility] - Test 00:00:00 [facility] colon (procedure) [code = 476308796] Encounters Start End Encounter Admission Attending Care Care Encounter Source Date/Time Date/Time Type Type Clinicians Facility Department ID 2020-06-24 2020-06-24 Outpatient [facility] [id number] [facility] 2020-06-03 2020-06-03 Outpatient [facility] [id number] [facility] 2020-05-25 2020-05-25 Outpatient [facility] [id number] [facility] 2020-05-13 2020-05-13 Outpatient [facility] [id number] [facility] 2020-04-29 2020-04-29 Outpatient [facility] [id number] [facility] 2020-04-15 2020-04-15 [facility] [id number] 2020-04-15 2020-04-15 [facility] [id number] 2020-04-07 2020-04-07 [facility] [id number] 2020-03-26 2020-03-26 [facility] [id number] 09:10:00 09:10:00 t Education Everytime [facility] Medicine Outpati ent Clinics 2019-09-21 2019-09-21 [facility] [id number] 21:47:00 21:47:00 t [facility] Medicine Outpati ent Clinics 2019-09-19 2019-09-19 [facility] [id number] 13:30:00 13:30:00 t [facility] Medicine Outpati ent Clinics 2019-09-10 2019-09-10 [facility] [id number] 10:15:00 10:15:00 t [facility] Medicine Outpati ent Clinics 2019-06-20 2019-06-20 [facility] [id number] 13:20:00 13:20:00 t [facility] Medicine Outpati ent Clinics 2019-03-21 2019-03-21 [facility] [id number] 11:20:00 11:20:00 t [facility] Medicine Outpati ent Clinics Results Test [...] patients withautoimmune hepatitis (AIH) type 1, approxi ybekht56% of patients with a utoimmune cholangitis,chitra roximately 30% of patients with p rimary biliarycirrhosi s, and approximately 2 % of healthy people.High giulia ues are closely correlated with AIH type 1. ELIANA (test code = Performing Lab ELIANA) EZ [employer] [facility] [address] [place] [address] Obdulia Ulrich MD, PhD, MARINA [facility] CenterCeruloplasmin2021-03-24 14:07:00 Test Item Value Reference Range Interpretation Comments Ceruloplasmin (test code 39 mg/dL 18-36 H = 20190906) ELIANA (test code = ELIANA) Performing Lab *GIULIA [facility], [address] [place] [phone] Nereida Rocha MD Lab Interpretation (test Abnormal code = 63955-6) [facility] CenterMitochondria M2 Antibody (IgG)2020-10-06 13:29:00 Test Item Value Reference Range Interpretation Comments Mitochondria M2 Ab 20.3 U See Note: H Reference (test code = 9820621) Range: NEGATIVE: < OR = 20.0EQUIVOCAL: 20.1-24.9POSITI VE: > OR = 25.0 ELIANA (test code = ELIANA) Performing Lab EZ [employer] [facility] [address] [place] [address] Obdulia Ulrich MD, PhD, MARINA Lab Interpretation Abnormal (test code = 41679-5) [facility] - Routine (Left Venipuncture) 2020-10-05 14:00:00 Test Item Value Reference Range Interpretation Comments Result (test code = No growth in 5 days 6463-4) [facility] CenterBLOOD [id number] 14:00:00 Test Item Value Reference Range Interpretation Comments CULTURE (BEAKER) (test No growth in 5 days code = 1095) BLOOD [id number] 11:00:00 Test Item Value Reference Range Interpretation Comments CULTURE (BEAKER) (test No growth in 5 days code = 1095) Hepatitis B PCR, [id number] 20:15:00 Test Item Value Reference Range Interpretation Comments HBV PCR, Quantitative HBV DNA not detected HBV DNA not (test code = 88685-2) detected ELIANA (test code = ELIANA) This test uses a Real-Time Polymerase Chain Reaction (RT-PCR) methodology and was performed using MADONNA AmpliPrep/MADONNA TaqMan HBV Test, v2.0 ([employer] Reportable range for this assay is 20 - 170,000,000 IU per mL (1.30 - 8.23 Log IU/mL). Lab Interpretation Normal (test code = 93054-2) [facility]HE[facility] B PCR, [id number] 20:15:00 Test Item Value Reference Range Interpretation Comments HBV RESULT COMPONENT HBV DNA not detected HBV DNA not detected (BEAKER) (test code = 2701) This test uses a Real-Time Polymerase Chain Reaction (RT-PCR) methodology and was performed using [employer] AmpliPrep/[employer] TaqMan HBV Test, v2.0 ([employer]Reportable range for this assay is 20 - 170,000,000 IU per mL (1.30 - 8.23 Log IU/mL).Hepatitis C PCR, [id number] 19:56:00 Test Item Value Reference Range Interpretation Comments HCV PCR, Quantitative 485814 See_Comment H [Auto mated (test code = 01754-6) messag e] The system which generated this result transmitted reference range : <15 IU/mL. The reference range was not used to interpret this result as normal/abnormal . ELIANA (test code = ELIANA) This test uses a Real-Time Polymerase Chain Reaction (RT-PCR) methodology and was performed using [employer] Ampliprep/M[employer]NA TaqMan HCV test kit version 2.0 ([employer] Reportable range for this assay is 15 - 100,000,000 IU per mL (1.18 - 8.00 Log IU/mL). Lab Interpretation Abnormal (test code = 41352-8) [facility] PCR, [id number] 19:56:00 Test Item Value Reference Range Interpretation Comments HCV NUMERIC RESULT ([facility]) 640378 IU/mL <15 H (test code = 2700) This test uses a Real-Time Polymerase Chain Reaction (RT-PCR) methodology and was performed using [employer]NA Ampliprep/MADONNA TaqMan HCV test kit version 2.0 ([employer]Reportable range for this assay is 15 - 100,000,000 IU per mL (1.18 - 8.00 Log IU/mL).Anti-Nuclear Antibody (GAMAL) 2020-10-04 12:41:00 Test Item Value Reference Range Interpretation Comments GAMAL (test code = 74744-5) Negative Negative ELIANA (test code = ELIANA) Test performed by IFA method. Lab Interpretation (test Normal code = 33182-0) [facility] CenterANTI-NUCLEAR ANTIBODY (GAMAL)2020-10-04 12:41:00 Test Item Value Reference Range Interpretation Comments ANTI-NUCLEAR ANTIBODY (GAMAL) (BEAKER) Negative Negative (test code = 418) Test performed by IFA method.POC-Glucose [id number] 18:23:00 Test Item Value Reference Range Interpretation Comments POC-Glucose Meter (test 127 mg/dL 70-110 H : TE STED AT [facility] code = 1538) [address] [facility], 770 30: Mixing Operator/Techni min ID = [id number] for Igbalajobi, She neto Lab Interpretation (test Abnormal code = 68011-7) [facility] CenterPOCT-GLUCOSE [id number] 18:23:00 Test Item Value Reference Range Interpretation Comments POC-GLUCOSE METER 127 mg/dL 70-110 H : TESTED A T [facility] 6720 ([facility]) (test code = [facility], 1538) [address]: Mixing Operator/Techni min ID = [id number] for Igbalajobi, She neto POCT-GLUCOSE [id number] 12:00:00 Test Item Value Reference Range Interpretation Comments POC-GLUCOSE METER 78 mg/dL 70-110 : [facility] ([facility]) (test code = [facility], 1538) [address]: Mixing Operator/Techni min ID = [id number] for Kassandra Woods Hepatitis B core antibody, [id number] 10:45:00 Test Item Value Reference Range Interpretation Comments Hep B Core Total Ab (test Reactive Nonreactive A code = 38256-4) ELIANA (test code = ELIANA) Mixing Operator ID - DBOperator ID - DBOperator ID - DB Lab Interpretation (test Abnormal code = 83018-4) [facility] CenterHEPAT[facility]IS B CORE ANTIBODY, [id number] 10:45:00 Test Item Value Reference Range Interpretation Comments HEPATITIS B CORE TOTAL ANTIBODY Reactive Nonreactive A (BEAKER) (test code = 497) Mixing Operator ID - DBOperator ID - DBOperator ID - DBPOCT-GLUCOSE [id number] 08:50:00 Test Item Value Reference Range Interpretation Comments POC-GLUCOSE METER 83 mg/dL 70-110 : TESTED A T [facility] 6720 (BEAKER) (test code = [place], 1538) [address]: Mixing Operator/Techni min ID = [id number] for Kassandra Woods Kknod-5-[id number] 08:30:00 Test Item Value Reference Range Interpretation Comments A-1 Antitrypsin (test 189.40 mg/dL 90-200 code = 1825-9) ELIANA (test code = ELIANA) Mixing Operator ID - DBOperator ID - DBOperator ID - DB Lab Interpretation (test Normal code = 75496-8) [facility] CenterALPHA-1-[id number] 08:30:00 Test Item Value Reference Range Interpretation Comments ALPHA-1 ANTITRYPSIN (BEAKER) 189.40 mg/dL 90.00-200.00 (test code = 502) Mixing Operator ID - DBOperator ID - DBOperator ID - DBHepatitis A antibody, IgG 2020-10-03 07:01:00 Test Item Value Reference Range Interpretation Comments Hep A IgG (test code = Reactive Nonreactive A 00589-6) ELIANA (test code = ELIANA) Mixing Operator ID - DB Lab Interpretation (test Abnormal code = 95929-5) [facility] CenterHEPATITIS A ANTIBODY, [id number] 07:01:00 Test Item Value Reference Range Interpretation Comments HEPATITIS A IGG ANTIBODY (BEAKER) Reactive Nonreactive A (test code = 2797) Mixing Operator ID - DBHepatitis C [id number] 06:59:00 Test Item Value Reference Range Interpretation Comments Hepatitis C Ab (test code = Reactive Nonreactive A 39257-8) ELIANA (test code = ELIANA) Mixing Operator ID - DB Lab Interpretation (test Abnormal code = 45632-1) [facility] CenterHEPATITIS C [id number] 06:59:00 Test Item Value Reference Range Interpretation Comments HEPATITIS C ANTIBODY (BEAKER) (test Reactive Nonreactive A code = 367) Mixing Operator ID - DBBasic Metabolic [id number] 06:38:00 Test Item Value Reference Range Interpretation [...] (test code = 7.8 mg/dL 8.4-10.2 L 54967-4) EGFR (test code = 39 mL/min/1.73 sq m [place] [address]-7) NOT ACCURATE CREATININE CLEARANCE IN PREDICTING GLOMERULAR FILTRATION RATE . ESTIMATED GFR I S NOT APPLICABLE FOR DIALYSIS PATIENTS. ELIANA (test code = ELIANA) Mixing Operator ID - EDASI Lab Interpretation Abnormal (test code = 86002-0) [facility] CenterBilirubin, [id number] 06:38:00 Test Item Value Reference Range Interpretation Comments Bilirubin, Direct (test 0.2 mg/dL 0.1-0.5 code = 1968-7) ELIANA (test code = ELIANA) Mixing Operator ID - EDASI Lab Interpretation (test Normal code = 76349-0) [facility] CenterBILIRUBIN, [id number] 06:38:00 Test Item Value Reference Range Interpretation Comments BILIRUBIN DIRECT (BEAKER) (test 0.2 mg/dL 0.1-0.5 code = 706) Mixing Operator ID - EDASIBASIC METABOLIC [id number] 06:38:00 Test Item Value Reference Range Interpretation [...] S NOT APPLICABLE FOR DIALYSIS PATIEN TS. Mixing Operator ID - EDASIHepatitis B surface [id number] 06:14:00 Test Item Value Reference Range Interpretation Comments Hep B S Ab (test code <8.0 See_Comment [Auto mated = 21528-7) message] The system which generated this result transmit altagracia reference range : <8.0 mIU/mL. Th e reference range was not used to interpret this result as normal/abnormal . ELIANA (test code = ELIANA) Mixing Operator ID - DB Lab Interpretation Normal (test code = 19540-0) [facility] CenterHEPATITIS B SURFACE [id number] 06:14:00 Test Item Value Reference Range Interpretation Comments HEPATITIS B SURFACE ANTIBODY < mIU/mL <8.0 (BEAKER) (test code = 647) Mixing Operator ID - DBHepatitis B surface [id number] 06:13:00 Test Item Value Reference Range Interpretation Comments HBsAg Screen (test code Nonreactive Nonreactive = 5195-3) ELIANA (test code = ELIANA) Specimen is considered negative for HBsAg. Lab Interpretation (test Normal code = 19838-8) [facility] CenterAlpha fetoprotein (AFP), tumor [id number] 06:13:00 Test Item Value Reference Range Interpretation Comments Alpha-Fetoprotein (test code 2.1 ng/mL <10.0 = 1834-1) ELIANA (test code = ELIANA) Mixing Operator ID - DB Lab Interpretation (test Normal code = 58853-8) [facility] CenterHEPATITIS B SURFACE [id number] 06:13:00 Test Item Value Reference Range Interpretation Comments HEPATITIS B SURFACE ANTIGEN (2) Nonreactive Nonreactive (BEAKER) (test code = 2585) Specimen is considered negative for HBsAg.ALPHA FETOPROTEIN (AFP), TUMOR MARKER 2020-10-03 06:13:00 Test Item Value Reference Range Interpretation Comments ALPHA-FETOPROTEIN (BEAKER) (test 2.1 ng/mL <10.0 code = 1094) Mixing Operator ID - DBProthrombin time/[id number] 05:06:00 Test Item Value Reference Interpretation Comments Range Protime (test code = 14.4 See_Comment H [Autom ated 7791-2) message] The system which generated this result transmitted reference range : 11.9 - 14.2 seconds. The reference range was not used to interpret this result as normal/abnormal . INR (test code = 1.16 See_Comment [Automated 3939-6) message] The system which generated this result [...] valves. Lab Interpretation Abnormal (test code = 85769-6) [facility]/[id number] 05:06:00 Test Item Value Reference Range Interpretation Comments PROTIME (BEAKER) 14.4 seconds 11.9-14.2 H (test code = 759) INR (BEAKER) (test 1.16 See_Comment [Automat ed message] code = 370) The system [employer] generated this result transmitted ref erence range: [...] 8.8 See_Comment [A utomated message] The system [employer] generated this result transmitted ref erence range: 3.5 - 10 .5 K/L. The refe rence range was not u sed to interpret this result as normal/abnor mal. RBC (test code = 789-8) 2.56 See_Comment L [Au tomated message] The system [employer] generated this result transmitted ref erence range: 4.63 - 6 .08 M/L. The refe rence range was not u sed to interpret this result as normal/abnor mal. MCHC (test code = 786-4) 31.8 See_Comment L [A utomated message] The system [employer] generated this result transmitted ref erence range: [...] See_Comment [Aut omated message] 777-3) The system [employer] generated this result transmitted ref erence range: 150 - 45 0 K/CU MM. The referen ce range was not u sed to interpret this result as normal/abnor mal. MPV (test code = 10.2 fL 9.4-12.4 52421-9) nRBC (test code = 413) 0 See_Comment [Aut omated message] The system [employer] generated this result transmitted ref erence range: 0 - 0 /1 00 WBC. The refere nce range was not u sed to interpret this result as normal/abnor mal. Lab Interpretation (test Abnormal code = 52444-2) [facility] with platelet count + automated [id number] 04:58:00 Test Item Value Reference Range Interpretation Comments WBC (test code = 6690-2) 8.8 See_Comment [A utomated message] The system [employer] generated this result transmitted ref erence range: 3.5 - 10 .5 K/L. The refe rence range was not u sed to interpret this result as normal/abnor mal. RBC (test code = 789-8) 2.56 See_Comment L [Au tomated message] The system [employer] generated this result transmitted ref erence range: 4.63 - 6 .08 M/L. The refe rence range was not u sed to interpret this result as normal/abnor mal. MCHC (test code = 786-4) 31.8 See_Comment L [A utomated message] The system [employer] generated this result transmitted ref erence range: [...] See_Comment [Aut omated message] 777-3) The system [employer] generated this result transmitted ref erence range: 150 - 45 0 K/CU MM. The referen ce range was not u sed to interpret this result as normal/abnor mal. MPV (test code = 10.2 fL 9.4-12.4 53412-3) nRBC (test code = 413) 0 See_Comment [Aut omated message] The system [employer] generated this result transmitted ref erence range: [...] H [Aut omated message] 670) The system [employer] generated this result transmitted ref erence range: 1.78 - 5 .38 K/L. The refe rence range was not u sed to interpret this result as normal/abnor mal. # Lymphs (test code = 0.86 See_Comment L [Auto mated message] 414) The system [employer] generated this result transmitted ref erence range: 1.32 - 3 .57 K/L. The refe rence range was not u sed to interpret this result as normal/abnor mal. # Monos (test code = 0.72 See_Comment [Autom ated message] 415) The system [employer] generated this result transmitted ref erence range: 0.30 - 0 .82 K/L. The refe rence range was not u sed to interpret this result as normal/abnor mal. # Eos (test code = 416) 0.12 See_Comment [Au tomated message] The system [employer] generated this result transmitted ref erence range: 0.04 - 0 .54 K/L. The refe rence range was not u sed to interpret this result as normal/abnor mal. # Baso (test code = 417) 0.02 See_Comment [A utomated message] The system [employer] generated this result transmitted ref erence range: 0.01 - 0 .08 K/L. The refe rence range was not u sed to interpret this result as normal/abnor mal. Immature 1 % 0-1 Granulocytes-Relative (test code = 2801) Lab Interpretation (test Abnormal code = 56383-0) [facility] W/PLT COUNT & AUTO [id number] 04:58:00 Test Item Value Reference Range Interpretation [...] 0-0 (BEAKER) (test code = 413) POCT-GLUCOSE [id number] 21:32:00 Test Item Value Reference Range Interpretation Comments POC-GLUCOSE METER 128 mg/dL 70-110 H : TESTED A T [facility] (BEAKER) (test code = DEVON [place], 1538) [address]: Mixing Operator/Techni min ID = [id number] for Lien Mansfield Vancomycin level, [id number] 18:09:00 Test Item Value Reference Range Interpretation Comments Vancomycin Tr (test code 6.3 ug/mL 10-20 L = 4092-3) ELIANA (test code = ELIANA) Mixing Operator ID - DBIf vancomycin trough level > 20 mcg/mL, hold next vancomycin dose, and contact MD and pharmacist. Lab Interpretation (test Abnormal code = 88502-9) [facility]AN[facility]CIN [facility], [id number] 18:09:00 Test Item Value Reference Range Interpretation Comments VANCOMYCIN TROUGH (BEAKER) (test 6.3 ug/mL 10.0-20.0 L code = 522) Mixing Operator ID - DBIf vancomycin trough level > 20 mcg/mL, hold next [facility]com[facility] dose, [facility] W/[facility]T [facility] & [...] PERCENT (BEAKER) (test code = 2801) POCT-GLUCOSE [id number] 17:36:00 Test Item Value Reference Range Interpretation Comments POC-GLUCOSE METER 124 mg/dL 70-110 H : TESTED A T [facility] (BEAKER) (test code = CARRILLOS[place] Rojelio [place], 1538) [address]: Mixing Operator/Techni min ID = [id number] for Jaswinder Jefferson Tissue [id number] 14:24:00 Test Item Value Reference Range Interpretation Comments Case Report (test code Surgical Pathology = 104) Report Case: [id number] Authorizing Provider: Sarkis Laboy, Collected: 10/01/2020 09:43 AM Ordering Location: [place] [address] ccu Received: 10/01/2020 01:48 PM Pathologist: Pa Peters MD Specimens: A) - Biopsy, Gastric, random biopsy B) - Gastric, gastric erythema biopsy DIAGNOSIS (test code = y4ytsDUgQRWhh4ezUIQwcW 3220) FuZzEwMzNcZnRuYmpcdWMx IHtccnRmMVxlcGljOTIwMl yvxuGrKZSxfOKqV1Zdljeo DYmjSO3lOI6zbZqvwKGphH FwGMEsUhVzk0was362dUUh l2whNMLDzczrtGk2eEekH6 5if9J5NlpxY06wjCMsUIqu bGFpblxmczIwIEEuIFNUT0 7II2kxEPCDZaEODRQXTjAU X3XQMPmUWX3WS08TJHblMy pEIUUXVQV2HKSdunx7MEWa OTPEQfAZOSnxAUWRP8KUYA dJVEggTUlMRCBDSFJPTklD JTbCDRHJLXECNKdPZ0TYSX LLHlSLQoMwRr2QBCmvVS5I ZUUPVI4SZXBPUXNXEAtGM0 xNRWJkgyk6LNLhTKAYGLnK OHtOXO8XK07HFEYZYTCUAN 3FKOAcV2kFG47CLeIORnDH VElWRSBHQVNUUklUSVMgV0 xGUTFYF8TUZYFXR7IDYbwJ LOqhKXVhnCWkBA4vI0QTTD hIDfXXKYVBWezbE8EBCE6y UnANQOIDMpAuIn8QGSfgEN RMAR0CEGFEDNvCEN9LX3AF JCDNK9xlQVMqfRNsLC4eUt ZGAQQNWeIvDl1KOYLOD7AE SQJYRUJARqGXZSOQJG8WWA OjgQJqATRuyiBHKqAFIG3W QUNILCBFUllUSEVNQSwgRU 3VI8OUV7PDCxFTCWPIJ9UR CDNFJ3MAPZYQEhqiCCTahS XzBD9lC2gKKbIATsNPGAVK P9UvX8zXWNOQKJzRBUGUQl 9OEPUdCC9TV8WZKeIpG7AD VFJJVElTIEFORCBWRVJZIE KOJ2HOLDDRXBsZTGHGSKLu ciAgICAgICAgICAgICAgLS YCKQ6MIaZsPAAQKSGZFRVP H12SCVJDEB2ZFFCOMUHCGR JUTFkgREVOVURFRCBXUElU YLKEHATFVHUfmpb3FUBiBX BXQVJUSElOIFNUQVJSWSBT VEFJTiBORUdBVElWRSBGT1 UwZX9vPUuYX1OWBLfYP8Ca H5HBTF6HW51LYDCxwyb0GV QuBXGGQWkRPFnYGMQYS5Io LU7WLKELPB6YSAMMCZSKCH iQT5oNQVLIHTMRLPDLSHGf E0IzZ1BEH1hOH02PHFEgwc 25FLH0VsKof2K3FRI3PXGl XGRvn2psYFDliXGxCjPgIc NcZnRuYmpcdWMxXGRlZmYw e1pst254wMTdu3boWDLxPz P6qZUuVJNmrFSmG932JNFh SOaxf7rpk4BeCGKuhPXoi1 X6IGPLbgsjaEh2sTcjD76x d7N0GjagE0rhBEIvAOCvK9 HbFI6wJHBdHfx0VZD0HEL8 GWRtQEUaI9FbUZ1vBXWkxM LrZJe3q8bhbDidYORoLDP2 v3goRLrgimIlJB3odx9jtG u6g0ycqyKfGZVvOCCtbROE IQAmF7YwhVxjIj0lsZi2zW btJrmtXFA1Hqf4GJ3pjr05 leh8hKtjBUFkpvkqXuH6MZ inXLUewlogQLp6PCabEDNx sUN0QYPtiFLbZ1YzXGAhOF 9qutm0EZP1PXrcBBYvOhP0 NDBcaGVhZGVyeTcyMFxmb2 79MLX7JpNvDB8mI2Gfh9D2 rW1muAAsIQRkpOInGpZgEW Cort5ldTVhEZaiq8XmLAE1 jgM4mFHadTAyJVAmYdQ2SH srUV6apz36PLFfVFC7kc2x bGNccGdicmRyaGVhZFxwZ2 DwDWHlk190OQXnN2DgFNUv s7R7vdGsWoNaUUJulLR3fb K6EGExJQ0ohvaas9goYBdi KHdaJRYgezK9gnU6HMUxbM NeI1YvcR6sFSWeIY4dhfpm f4huAOH6BGcaGRXtAEZ2Uv PpAYYkv1Hfwcv7MnIku1Gu pENoZGbbG68ir769ZZRrkx IkQ6wzzGQagyazyPGfytly VRqndjX2QWDqXSijqidpAZ NySUbhL8clMgEqOZMzuEgd YCpbh6KyMZOmGEQlDrKxdS AuGZXqHvl0HUUhtUZpPAXc KrGfR8zmhcdqWzBSOFXrq5 cyZ2obtYMBcOEkV0PnDCjq iyGmOCdfRSkpRBEqBGU1KS 24RIqdNOOvio46 CPT Code(s) (test code b8vokGJsQAHpxOX3YdJcUJ = 3357) Laa8vyd1KexHXlySOyXNjg zLVnloSiay13pCL1lH95AD 3sEYUpHuI8RRQjhlA2Nrd9 QGDaJDVszSTkC649s1xau6 qsffVijQP9sEakWAGlFGSb YWluXGZzMjAgODgzMDUgWC RsXCD4TQSuTrOBNfddMTO9 CLINICAL HISTORY (test t3pxjFGlLUDyrKN4JeNeXM code = 3356) Tbd1nuo0LnaNLedDFiISqy nRJgypRszs87hRQ8hQ11WQ 5fXYGfWaA5QAKumbO6Gml3 SSTxFSIqrPTdO309h0qyf6 aikaBbzEY1vImcLUNkWTTa UAoiOYGdUrEkeXFzQP0qGX Bhcn0= SPECIMEN SOURCE (test b2ghpVUbHRBvdFI9LhEdHD code = 3377) Tll2miv6CndKBcjLNmIPwk hVGvzjViux38dJD5fY31XG 6jPJDnBvF6XBDlvlM3Kqi2 FJUzCUQseXZkX239d0swu2 fdbiWlwZP5ePzqBSArTLJw GAxwMJDdEhKqZI4tLGagi0 XgqWJdtApfYSTAMfEuV6Rc sCSaE1ixWKL4 GROSS DESCRIPTION (test k4hkwDLvOTVnjKJuGiYeEH code = 3366) MlEBAmd9gqVDWjfWNvJrSp MzNcZnRuYmpcdWMxXGRlZm Aqq7xvn023gZNik7moAMYl VtO8bFEmCVSnmTJsV741c2 sjs3miowSbrYO3ROXcOWA7 YHfksmHyevA7WXuhcVUfSd N8SItfqkOpSVjzusEnmeDa Cwa8XRYmS823MGY6gTggb5 wcSMM5HHVgLBSqQrQeEg8o sPYdF831SRTdEJGSEXZgbQ b5PVJyyqKtisZirILXx885 P813z9kvDBJwdvQikWoAxs suq8moY721NYEddZBqmkCa WsFhZGTqeFYhiIQ3FDWyIH 1vosboQwQqMT4jxctvXfSh VW2ibmz8OwZkRY6chuniRk GnINidHOEwbotyRWAyu5Pt mfxsHK9iM7Ppv0E9qI4tgP ZmTYZpqHMuSwKoGMDuim1u zBKrSEktw3SxBCD6nwE0aN KzdIUsEGUvYG89Oefxi4Oq NcdxYSJ7DKDbdlXjs8Fcn8 znVcQnzjJjY6pnP7LlBDHx CBErLWAdZsWtbmEyl9Yif9 NnlCKcmRn8z4xtJFVaKOUc uAzxc5jdEJH6KJAgV4P7bK Zgr8jvJDirJHXbtPL2iywv QHogILKtueA3jdwpLPqnUS LizRP0kbiiZKyiVTFdMuQ8 ypvsSJbsUAZzLPI0BRlah3 62QSR7BTcyUtfhTZadSEDh bmNvbnRccGduZGVjXHBsYW luXHBsYWluXGYwXGZzMjRc rYazgLxrcG4rOdCoIbCjTR jtOW0xRTVgR5wvqJDxCTDv YRJjM0suHjEacZ2lyZshGH xmczIwIEEuICBSZWNlaXZl AIUdduZza0VrSWeholXmEK MzoVNiZYUpYUAgFNMmXS52 I9IzwcRpMMfbORJdMZOjcM 2tWM78nDNujdKqbeDiOpea l6NzzJZrQmhvkYP8GxTzuw KtVWW6JE8uwVasoxL5xSJi nDNjTxEzZ46alcPkBC7yLA J8soopDiK9lOB2fuSpHkJa L81xdP6bB2KtFQLwp6UoZO wvBX5qlE8zHVhclGSkLNUy DWXrkYs3JEUwZQWnkdPek9 HifQd1tEOqGRpvBTWvpJ3u uN2vJTDkWJXsqjodINDvTa 0gUAHdA2AkqjBjJGalCDMf qv1sySgcDVupHzKrISYuaF roGZYccJgczgSzqdNbCG2n OZWsN7Qsw5Qfb03qszDxIp CcHWYsISTnN2EnaJUvBrOh aXMgYSAwLjIgeCAwLjIgeC LrAzPoV32keCZhASAidjln tMgmp8PpLJGpTVohSR10CO doaWNoIGlzIGZpbHRlcmVk EBWgUKLmuQVymDQ3FHKxoY 6lzC06rrPvqaTIYZ3edFAg PNOikiVKcZftqwWUrdq7ZX xsZXMsIFBBLCBIVCAoQVND UClccGFyfQ== MICROSCOPIC DESCRIPTION e7lmoBMePQNzeMU0QdVwGG (test code = 3371) Lcw1vtd8IpiWGzqILxORwm tQVeptEzct68wGB8rS05EO 8aZMEcSvA8BSTxdsE7Zbl1 FQEpRDKvqQQfJ906t7szh2 hrhhNciAE1jMcgNPLmPRTm VUycBWEwVlBiMPEvFy1uaS VkLlxwYXJ9 SPECIAL STUDIES (test w9mtkPMdGUSha5trLIGtdG code = 3376) FuZzEwMzNcZnRuYmpcdWMx VVjipgKvZEgef3RfK6LxOe AwMFxhbnNpXGRlZmxhbmcx NMXqGIU9mpBgYIGvHLhvHF KgVTloOy7umADggOcbGrAq RZIpm4hswxZWrlaeuEa7g5 kaEBFuCaT9eIGyOVarK6lb vfMjmKXxL1WkxKGuwGq9h0 nxMjBuWuS4mJLmWVuxY8rj tzAlwSGhVOExJId6fP59WM NjbM1nuZHsLSldsgJgSwA0 VPpwCJYgPkO9JKMzjQWcGB NjU5wqMPDxBQaqFRHrTKkf aPAzPNU1yVvrg3I3vBAfbY ZgkUgsWxInQsJqWbHAh8Tq TTn1hNxrR1NqNQUdWlM5lX QgUGFyYWdyYXBoIEZvbnQ7 dBomdnEph90vsQUyBUQdBZ QvDfSmtMsbAGIvWHCBn2Rj xEzkSIX0fHf6eTbhYdfhUJ B9Xtz0XG5fwv60phy0bJlt LXOqwpttDrU8XDbjTQWzma pkXRb5YPtzSVPnaXH0EFXa nATnX6NcMPRaRA1ftwk7YI F4LWhvIRAoInE7UHQnjIKg PUBatOqgRStra215TGC2Fy CoTP9zW1Izv8M3yT3ygHEg PNAieURjYpBhLENrvd1ajJ KnCMquf4FdCWP2rxH0vOQc sZApMRZpTU24Htqoz1DtOy cvv5KwI65zqUI9DBbpu6gq RP3gVlJ4qmCdIKsjc3verZ 3jEjD0UVqvRQ8pTC3bOLAi pZ1ttwozLVHqQaJddcywVR HafLufxgEvMg4azRruWYA0 ROivA6zagM5pRoZ1BGarK0 dxtG5iCJe4YEgdcNG1FNVo qO1gGJ9gbixsl2uiISuwQW evKKJwwqU4ibP1NRVrgEOs U5LtrW5aVVYrXQ0jiuqzw0 yjWTL4VHbcEUHxWRW0SdKr HLNui7Klfmj2IcZki7WioT YzCCucY79im558VDQsrfPh J4hqiMWzycjhnMFbxcetHN nqyhH0DNMaYARmHRmoYNVu XGZzMjJcbGFuZzEwMzNcaG ljaFxmMVxkYmNoXGYxXGxv X6flRqQgV0ScCUYrIfVgSV egONgzoTGflXFaiDS6rB3t SR4wRGEpkQSgL1BwCVZxti AwbRWkMKJ4yKVjmVXpDH5u NWdtdSYas6iqr2NmS6nuuL bcgXI7ZP2sKXOzCQUaBMpj g4VflH2xKxfsaFVgmykrNW xmczIyXGxhbmcxMDMzXGhp D7oqHaVmJXLymHhmDLwbg1 NoXGYxXGNmMlxmczIyXGx0 cmNoXHBhclxwYXJccGxhaW 2wOvZyXhTbSxchAE6xTKVi O5tjsXZjQQWzKETqE5reQe WvvM4reLwpHPfbFlWhQyFl TxXHv724iq2lAFYisMDlmt XCzTGhzR0pRNfmQXrdTOfq mIJkXHiul6ueKUSma5i2tN CmVOKitcIqf2enXYsnkvWp CQJjvSAtlWGjIJKoi33zTP tqlNhsiKnnMWPej9VfsQye h6AmVjFoLDiaj5UgL72lmE JvbCBzbGlkZXMgcnVuIGFs p10uv8obLRLyGaZ4cFBumK N3vFLvqPTrz2GxdImfLMCu s0gzWJXtfh7dtbqxdWTwr9 LayN7mgnlnFVpqfFQukyHy WCYpc1d8vVFoTBHhNRZsBO gukKy0HJKgi093vs4mngF5 lXHiNKX2VYijUBTqLRYkng UgZXZhbHVhdGVkXHBsYWlu XGYxXGZzMjJcbGFuZzEwz NcaGljaFxmMVxkYmNoXGYx WEhpK6xvKyCcJ7HkWEDfTp LzgBXfF4rmyIYhDAPzUNfe XGYxXGZzMjJcbGFuZzEwz NcaGljaFxmMVxkYmNoXGYx NNbcV6koGfJnQ0CgKPUqMa IgIFxwbGFpblxmMVxmczIy QOkuymuoUDSdZNekA1ekUl JvMQBjqLmgWCdko3JmQENk ZZUuNtivmjAtKTl7rpBdJY BhclxwbGFpblxmMVxmczIy MCpxzwyrBPHcTNcnT7wgXq FwXIZzoRcwBApxw9JkJIPy XGNmMlxmczIyIEltbXVub2 cpm6RvO5izcZcysPW0KKJx H8oyrPWirUK8PRQ2oV9zOX kglrBbOAGgh8ArOBMlCYKy GrS5aA4jIZH8ZyIPhSzzFE BsYWluXGYxXGZzMjJcbGFu ZzEwMzNcaGljaFxmMVxkYm XqDCLuWClbQ3rkUgZlO8Uu FHWiPjRpnAvsNGzpLRw5Mj xwbGFpblxmMVxmczIyXGxh frcwXJTxBKbcG2ehRiGfEF PapNcqJZfiq0DeNYGwVRRl MlxmczIyIHMgTWVkaWNhbC ANDG04GONkQNFmmKwyyU8z hYTLOHCrozC3y8Z9FWiaUS BlOXy7NZdowhOxLLTutB0i WJSkMF7vINl1ipGdGFIem4 QwEF2kXAFkdDVpBKH6QXTd m0LnM3Ajh7NuSVRaWMVveu 7bfePePoSJzSNcKMKmxl33 IFFqVI2pK2fqKYPlISFtfo QppECms2YkGYVuhYL2zMVi EN6NQkJFl14iQYZcLYGVyq TuBFFilFfmsFR9zqM1yI9n LiBUaGUgRkRBIGhhcyBkZX Wehl6rotDnHVWjPYBve4Ar iLHbvEGepwRkY2Rsg5IkXV Hodt87ILfggDVfjv57TR6n U0Jjz7SxyW0rQEtaNLHen2 AhmNDnpIIpJBPur9YgT5at jwfeSDpzpLYtbH4yXINlCT b6JVRrb4PaEKCic7AeGzOt jhQwRFBfZUElPYDauF86YM E0hAqhmIrommUuST2gQVPk thSxDPQcRMEazH4fNIdkqw KjTFQqunL3l4Q8TCdtHIVt yrUxRsmjITW5vwHfyyZ9jF VfJ8oavktkEEpiHOElm7Un jL8dsGSCnGXtm5BlxQKnmT NFrBSfXK2tlfCsYC9kXHP3 ODggKENMSUEtODgpIGFzIH Y8WCcxTqxvRID6tvViDFSn e2ZiDLoqP4fbG47jjOsqmE n5zCCnrEsbxYIxdTXpIEEz knF2s1Y6RGSug0KgvjgwQC BsYWluXGYyXGZzMjJcbGFu ZzEwMzNcaGljaFxmMlxkYm EbFQLpCOnpG9xrSmBgRwMq UypcAGP8mZ== Gross assessment was [facility] performed at ([facility], = 2777) Department of Pathology, [address] [place] [address], Technical component was [facility] performed at ([facility], = 2778) Department of Pathology, [address] [place] [address], Professional component [facility] was performed at ([facility], code = 2779) Department of Pathology, [address] [place] [address], [facility] [id number] 14:24:00Surgical Pathology Report Case: [id number] Authorizing Provider: Sarkis Laboy, Collected: 10/01/2020 09:43 AM OrderingLocation: [place] [address] ccu Received: 10/01/2020 01:48 PM Pathologist: Pa [...] OR CARCINOMA Signing Pathologist Direct Phone Line: [phone] signed by Pa Peters MD on 10/02/2020 at 2:24 [id number] X 2, [id number] V5jxyinwU. GastricB. GastricA. Received in formalin labeled the [...] evaluated Immunohistochemistry technical testing was performed at [facility], Pathology Laboratory where it was developed [...] qualified to perform high complexity clinical laboratory testing.[facility], Department of Pathology, [address] [place] [address], [facility], [address] [place] [address], [facility], [facility] of [facility], [address] [place] [address], XNDP-GLUCOSE [id number] 11:33:00 Test Item Value Reference Range Interpretation Comments POC-GLUCOSE METER 124 mg/dL 70-110 H : TESTED A T [facility] ([employer]) (test code = DEVON Serrato [facility], 1538) [address]: Mixing Operator/Techni min ID = [id number] for Jaswinder Jefferson POCT-GLUCOSE [id number] 08:15:00 Test Item Value Reference Range Interpretation Comments POC-GLUCOSE METER 106 mg/dL 70-110 : TESTED A T [facility] 6720 (WENDI) (test code = DEV[place], 1538) [address]: Mixing Operator/Techni min ID = [id number] for Jaswinder Jefferson Comprehensive metabolic [id number] 05:17:00 Test Item Value Reference Range Interpretation Comments Protein, Total (test 6.1 See_Comment [Autom ated code = 2885-2) message] The system which generated this result transmit altagracia reference range : 6.0 - 8.3 gm/dL . The reference range was not u sed to interpret th is result as normal/abnormal . Albumin (test code = 2.6 g/dL 3.5-5 L 61596-8) Alkaline Phosphatase 85 U/L 40-150 (test code [...] (test code = 7.7 mg/dL 8.4-10.2 L 44510-2) AST (test code = 17 U/L 5-34 1920-8) ALT (test code = 9 U/L 6-55 1742-6) EGFR (test code = 35 mL/min/1.73 [place] [address]-9) NOT ACCURATE CREATININE CLEARANCE IN PREDICTING GLOMERULAR FILTRATION RATE . ESTIMATED GFR I S NOT APPLICABLE FOR DIALYSIS PATIEN ELIANA (test code = ELIANA) Mixing Operator ID - EDASI Lab Interpretation Abnormal (test code = 28168-7) [facility] CenterCOMPREHENSIVE METABOLIC [id number] 05:17:00 Test Item Value Reference Range Interpretation [...] S NOT APPLICABLE FOR DIALYSIS PATIEN TS. Mixing Operator ID - EDASICBC W/PLT COUNT & AUTO [id number] 04:32:00 Test Item Value Reference Range Interpretation [...] PERCENT (BEAKER) (test code = 2801) POCT-GLUCOSE [id number] 21:36:00 Test Item Value Reference Range Interpretation Comments POC-GLUCOSE METER 146 mg/dL 70-110 H : TESTED A T [facility] [address] (BEAKER) (test code = [place], 1538) [address]: Mixing Operator/Techni min ID = [id number] for Johana Vasquez Hemoglobin [id number] 15:28:00 Test Item Value Reference Range Interpretation Comments Hemoglobin A1C (test code = 4548-4) 5.6 % 4.3-6.1 Lab Interpretation (test code = Normal 89418-0) [facility]MO[facility] [id number] 15:28:00 Test Item Value Reference Range Interpretation Comments HEMOGLOBIN A1C (BEAKER) (test code = 5.6 % 4.3-6.1 368) CBC W/PLT COUNT & AUTO [id number] 12:44:00 Test Item Value Reference Range Interpretation [...] PERCENT (BEAKER) (test code = 2801) POCT-GLUCOSE [id number] 11:11:00 Test Item Value Reference Range Interpretation Comments POC-GLUCOSE METER 125 mg/dL 70-110 H : [facility] (BEAKER) (test code = [facility], 1538) [address]: Mixing Operator/Techni min ID = [id number] for BE LL, BEAULA Vancomycin level, [id number] 10:39:00 Test Item Value Reference Range Interpretation Comments Vancomycin Rm (test 4.8 ug/mL code = 53139-6) ELIANA (test code = Reference Range: No ELIANA) NormalsOperator ID - COLBY Rodriguez [facility] CenterVANCOMYCIN LEVEL, [id number] 10:39:00 Test Item Value Reference Range Interpretation Comments VANCOMYCIN RANDOM (BEAKER) (test 4.8 ug/mL code = 523) Reference Range: No NormalsOperator ID - COLBY CPOCT-GLUCOSE [id number] 08:38:00 Test Item Value Reference Range Interpretation Comments POC-GLUCOSE METER 119 mg/dL 70-110 H : TESTED A T [facility] (BEAKER) (test code = [facility] [facility], 1538) [address]: Mixing Operator/Techni min ID = [id number] for BE LL, BEAULA SARS-CoV2/RT-PCR (Asymptomatic ONLY)2020-10-01 08:13:00 Test Item Value Reference Range Interpretation Comments SARS-COV2/RT-PCR Negative Not Detected, (test code = Negative, See 61812-9) external report for linked test SARS-COV-2 [facility] PER[facility] (test code = 31234-9) ELIANA (test code = Negative result for [...] of the Act. Fact Sheet for Healthcare Providers:https://www.SphereUp/sites/default/f dorys/product/documents/F act_Sheet_HC_Providers_L sne_TKAK-SwJ-2.pdf Fact Sheet for Healthcare Patients:https://www.Holidu/sites/default/fi les/product/documents/Fa ct_Sheet_Patients_Lyra_S ARS-CoV-2.pdf Performing Laboratory:[facility] [place] [address] [facility])2020-10-01 08:13:00 Test Item Value Reference Range Interpretation Comments SARS-COV2/RT-PCR (test Negative Not Detected, Negative, code = 9521362) See external report for linked test SARS-COV-2 PERFORMING LAB [facility] (test code = 7571077) Negative result for this test determines that [...] 564(g) of the Act.Fact Sheet for Healthcare Providers:https://www.[employer].com/sites/default/files/product/documents/Fact_Shee s_KK_Ydzpwfyga_Edor_QEOQ-RsO-3.pdfFact Sheet for Healthcare Patients:https://www.[employer].com/sites/default/files/product/ documents/Peyn_Pmqra_Xehogqdz_Kdgb_ECMT-ZvK-2.pdfPerforming Laboratory:[facility] [place], [place] [id number] 06:20:00 Test Item Value Reference Range Interpretation Comments Ferritin (test code = 61.09 ng/mL 5-275 2276-4) ELIANA (test code = ELIANA) Mixing Operator ID - ASHLEIGH L Lab Interpretation (test Normal code = 94171-8) [facility] CenterVitamin B12 and [id number] 06:20:00 Test Item Value Reference Range Interpretation Comments Vitamin B12 (test 267 pg/mL 213-816 code = 2132-9) Folate (test code = 11.30 ng/mL See_Comment [Automa altagracia 2284-8) message] The system which generated this result transmit altagracia reference range : >=7.00. The reference range was not used to interpret this result as normal/abnormal . ELIANA (test code = ELIANA) Mixing Operator ID - STEPHENIEEAGLE Day Lab Interpretation Normal (test code = 11951-4) [facility] CenterFERRITIN2021-03-19 06:20:00 Test Item Value Reference Range Interpretation Comments FERRITIN (BEAKER) (test code = 61.09 ng/mL 5.00-275.00 361) Mixing Operator ID - STEPHENIEEAGLE LVITAMIN B12 AND [id number] 06:20:00 Test Item Value Reference Range Interpretation Comments VITAMIN B12 267 pg/mL 213-816 (BEAKER) (test code = 774) FOLATE (BEAKER) 11.30 ng/mL See_Comment [Automated message] (test code = 362) The system which generated this result transmitted ref erence range: >=7.00. The reference range was not used to interpr et this result as normal/abnormal . Mixing Operator ID - ASHLEIGH Vazquez, TIBC, % sat. (without ferritin)2020-10-01 06:04:00 Test Item Value Reference Range Interpretation Comments Iron (test code = 2498-4) 17.0 ug/dL 40-160 L TIBC (test code = 2500-7) 323 ug/dL 250-450 Iron % Saturation (test 5 % 20-55 L code = 2502-3) ELIANA (test code = ELIANA) Mixing Operator ID - ASHLEIGH L Lab Interpretation (test Abnormal code = 38040-0) [facility] CenterIRON, TIBC, % SAT. (WITHOUT FERRITIN)2020-10-01 06:04:00 Test Item Value Reference Range Interpretation Comments IRON (BEAKER) (test code = 547) 17.0 ug/dL 40.0-160.0 L TOTAL IRON BINDING CAPACITY 323 ug/dL 250-450 (BEAKER) (test code = 769) IRON % SATURATION (2) (BEAKER) 5 % 20-55 L (test code = 2590) Mixing Operator ID - PIAYA LPOCT-GLUCOSE [id number] 05:23:00 Test Item Value Reference Range Interpretation Comments POC-GLUCOSE METER 116 mg/dL 70-110 H : TESTED A T [facility] [address] (BEAKER) (test code [facility], = 1538) [address]: Mixing Operator/Techni min ID = [id number] for ELIDAU JUNIE CASAS CBC W/PLT COUNT & AUTO [id number] 03:26:00 Test Item Value Reference Range Interpretation [...] (BEAKER) (test code = 2801) COMPREHENSIVE METABOLIC [id number] 03:22:00 Test Item Value Reference Range Interpretation [...] S NOT APPLICABLE FOR DIALYSIS PATIEN TS. Mixing Operator ID - DBCBC W/PLT COUNT & AUTO [id number] 20:14:00 Test Item Value Reference Range Interpretation [...] PERCENT (BEAKER) (test code = 2801) POCT-GLUCOSE [id number] 20:12:00 Test Item Value Reference Range Interpretation Comments POC-GLUCOSE METER 134 mg/dL 70-110 H : TESTED A T [facility] [address] (BEAKER) (test code [facility], = 1538) [address]: Mixing Operator/Techni min ID = [id number] for ELIDALela DELONTE CASASINE CBC (HEMOGRAM ONLY)2020-09-30 [...] 0-0 (BEAKER) (test code = 413) POCT-GLUCOSE [id number] 14:32:00 Test Item Value Reference Range Interpretation Comments POC-GLUCOSE METER 106 mg/dL 70-110 : TESTED Parveen Padron [facility] [address] (WENDI) (test code = [place], 1538) [address]: Mixing Operator/Techni min ID = [id number] for CHUY SWANN HEMOGLOBIN [id number] 11:57:00 Test Item Value Reference Range Interpretation Comments HEMOGLOBIN A1C (WENDI) (test code = 5.6 % 4.3-6.1 368) U/S, ABDOMINAL, [id number] 11:53:00Abdomen limited area? Add comment if clarification is needed.->Right upper quadrantReason for exam:->liver cirrhosis; [facility]TOH abuse [facility] : 1950 Sex: [...] MDReport Verified Date/Time: 09/30/2020 11:53:08 US abdomen [id number] 11:53:00Interface, External Ris In - 09/30/2020 11:55 [...] signedby: CAITY HERNADEZ MD on 09/30/2020 11:53 [facility] Reflex [facility] Culture 2020-09-30 10:53:00 Test Item Value Reference Range Interpretation Comments Color, UA (test code Light Yellow = 5778-6) Clarity, UA (test Clear code = 5767-9) Specific [place], UA 1.014 1.001-1.035 (test code = 5811-5) pH, UA (test code = 6.0 5.0-8.0 5803-2) Protein, UA (test 200 mg/dL Negative A code = 26869-6) Glucose, UA (test 50 mg/dL Negative A code = 365) Ketones, UA (test Negative Negative code = 2514-8) Bilirubin, UA (test Negative Negative code = 87490-2) Blood, UA (test code Small Negative A = 06162-8) Nitrite, UA (test Negative Negative code = 5802-4) Leukocytes, UA (test Negative Negative code = 5799-2) Urobilinogen, UA 0.2 mg/dL 0.2-1 (test code = 65406-0) RBC, UA (test code = 1 See_Comment [Autom ated 33204-0) message] The system which generated this result [...] . Bacteria, UA (test Few code = 29340-9) Mucus (test code = Few 8247-9) Squam Epithel, UA 1 See_Comment [Automate d (test code = 58467-2) messag e] The system which generated this result transmit altagracia reference range : /HPF. The reference range was not used to interpret this result as normal/abnormal . Hyaline Casts, UA 6 See_Comment [Automate d (test code = 96249-2) rajendraag e] The system which generated this result transmit altagracia reference range : /LPF. The reference range was not used to interpret this result as normal/abnormal . Specimen Source (test code = 2795) ELIANA (test code = ELIANA) Mixing Operator ID - [auto]Mixing Operator ID - tech Lab Interpretation Abnormal (test code = 04852-8) [facility] [id number] 10:53:00 Test Item Value Reference Range Interpretation [...] = 514) SOURCE(BEAKER) (test code = 2795) Mixing Operator ID - [auto]Mixing Operator ID - techLactic acid, [id number] 10:00:00 Test Item Value Reference Range Interpretation Comments Lactate, Venous (test code 1.08 mmol/L 0.5-2.2 = 2872) ELIANA (test code = ELIANA) Mixing Operator ID Eulalio SOTELO L Lab Interpretation (test Normal code = 63418-9) [facility]CT[facility]ID, [id number] 10:00:00 Test Item Value Reference Range Interpretation Comments LACTATE BLOOD VENOUS (2) (BEAKER) 1.08 mmol/L 0.50-2.20 (test code = 2872) Mixing Operator ID Eulalio SOTELO LCBC W/PLT COUNT & AUTO [id number] 09:53:00 Test Item Value Reference Range Interpretation [...] = 2801) RAD, CHEST, 1 VIEW, NON [id number] 09:06:00Reason for exam:->? sob [facility] : 1950 Sex: MFINAL REPORT INDICATION: ? sob COMPARISON: None TECHNIQUE: Single fro ntal view of the chest. FINDINGS: Lungs and pleura: Clear lungs. No effusion.Heart and mediastinum: Normal heart size. Unremarkable mediastinal contours.Osseous structures: No acute abnormality.Other: None. IMPRESSION: No acute intrathoracic abnormality. Signed: Nahed Cleary MDReport Verified Date/ Time: 09/30/2020 09:06:18 Reading Location: [facility] Radiology Reading Room XR chest 1 view portable / [id number] 09:06:00Interface, External Ris In - 09/30/2020 9:24 AM CDTFINAL REPORT INDICATION: ? sob COMPARISON: None TECHNIQUE: Single frontal view of the chest. FINDINGS: Lungs and pleura: Clearlungs. No effusion.Heart and mediastinum: Normal heart size. Unremarkable mediastinal contours.Osseous structures: No acute abnormality.Other: None. IMPRESSION: No acute intrathoracic abnormality. Sign ed: Nahed Cleary Verified Date/Time: 09/30/2020 09:06:18 Reading Location: [facility] Radiology Reading Room [facility] COMPREHENSIVE METABOLIC [id number] 07:47:00 Test Item Value Reference Range Interpretation [...] S NOT APPLICABLE FOR DIALYSIS PATIEN TS. Mixing Operator ID - [id number] 07:07:00 Test Item Value Reference Range Interpretation Comments PTT (test code = 14020-9) 25.1 See_Comment [ Automated message] The system Verified Identity Pass generated this result transmitted ref erence range: 22.5 - 3 6.0 seconds. The re ference range was not u sed to interpret this result as normal/abnor mal. Lab Interpretation (test Normal code = 43825-1) [facility] CenterPROTHROMBIN TIME/[id number] 07:07:00 Test Item Value Reference Range Interpretation Comments PROTIME (BEAKER) 14.2 seconds 11.9-14.2 (test code = 759) INR (BEAKER) (test 1.13 See_Comment [Automat ed message] code = 370) The system Verified Identity Pass generated this result transmitted ref erence range: <=5.90. The reference range was not used to int erpret this result as normal/abnormal . Effective 12/11/2018: PT Reference Range ChangeNew: 11.9-14.2 Previous: 11.7- 14.7RECOMMENDED COUMADIN/WARFARIN INR THERAPY RANGESSTANDARD DOSE: 2.0-3.0 Includes: PROPHYLAXIS for venous thrombosis, systemic embolization; TREATMENT for venous thrombosis and/or pulmonary embolus.HIGH RISK: Target INR is2.5-3.5 for patients wiht mechanical heart valves.[id number] 07:07:00 Test Item Value Reference Range Interpretation Comments PARTIAL THROMBOPLASTIN TIME 25.1 seconds 22.5-36.0 (BEAKER) (test code = 760) POCT-GLUCOSE [id number] 06:39:00 Test Item Value Reference Range Interpretation Comments POC-GLUCOSE METER 150 mg/dL 70-110 H : [facility] ([facility]ER[facility] (test code [facility], = 1538) [address]: Mixing Operator/Techni min ID = [id number] for CORRY CASAS JUNIE [id number] 00:00:00Ordered by an unspecified provider.[facility])2020-01-26 13:29:00 Test Item Value Reference Range Interpretation Comments SARS-COV2/RT-PCR (test code = Negative Not Detected, Negative 7197462) SARS-COV-2 PERFORMING LAB [facility] (test code = 1297614) Negative result for this test determines that [...] 564(g) of the Act.Fact Sheet for Healthcare Providers:https://www.[employer].com/sites/default/files/product/documents/Fact_Shee f_PC_Pauarxdmo_Vppv_KZDB-MnY-1.pdfFact Sheet for Healthcare Patients:https://www.[employer].com/sites/default/files/product/ documents/Yyvb_Hdjkr_Hgkchfcr_Wdbu_BLIS-DtC-2.pdfPerforming Laboratory:[facility] [place] [address]
[2021-02-01 20:01] LABS: Absolute Lymphocytes (CBC) 1.7 K/uL (0.7-4.9); Basophils % 0.4 % (0-1.3); Hematocrit 32.6 % (39.6-49.0); MPV 8.4 fL (7.6-11.3); RBC Red Blood Cell Count 3.71 M/uL (4.33-5.43)
[2021-02-01] MEDS ORDERED: FENTANYL CITR 100 MCG/2 ML ONE (20:03)
--- NOTE | 2021-02-01 20:24 | RAD REPORT ---
EXAM DESCRIPTION: RAD -Hand Left 3 View - 02/01/2021 8:13 pm CLINICAL HISTORY: Left hand pain FINDINGS: No fracture or dislocation is seen. Bones are osteoporotic. Vascular calcifications are seen. Mild to moderate narrowing of the joint with osteophytes.
[2021-02-01] MEDS ORDERED: CLINDAMYCIN 600MG/D5W 600 MG/50 ML BAG IV ONE (20:41)
--- NOTE | 2021-02-01 21:09 | RAD REPORT ---
EXAM DESCRIPTION: US - UPPER EXTREMITY VENOUS UNILATE - 02/01/2021 8:45 pm CLINICAL HISTORY: Arm pain and swelling COMPARISON: None. FINDINGS: Left internal jugular vein, left subclavian vein, left axillary vein, left brachial vein, left cephalic, left basilic, left ulnar and left radial veins demonstrate phasic signal. The veins ar e compressible. Doppler demonstrates good flow. . IMPRESSION: No sonographic evidence of thrombus involving the left upper extremity veins.
[2021-02-01] MEDS ORDERED: Levofloxacin500mg IV 500 MG/100 ML BAG IV ONE (21:41)
[2021-02-01] MEDS ORDERED: MEPERIDINE HCL 25 MG/ML SYR ONE (21:41)
--- NOTE | 2021-02-01 22:07 | RAD REPORT ---
EXAM DESCRIPTION: CT - Upper Ext Wo Con W/ Mpr - 02/01/2021 9:50 pm CLINICAL HISTORY: Hand swelling COMPARISON: None. TECHNIQUE: Computed axial tomography obtained from lab the elbow to the hand. Coronal and sagittal r econstruction All CT scans are performed using dose optimization technique as appropriate and may include automated exposure control or mA/KV adjustment according to patient size. FINDINGS: No fracture or dislocation. There is diffuse edema within the subcutaneous tissues of the forearm and hand. No bony destructive lesion is visualized. Vascular calcifications are present. No gross abnormality of the musculature visualized although examination is somewhat limited on CT There appears to be a third MCP joint effusion IMPRESSION: Diffuse edema within the subcutaneous tissues may indicate cellulitis and should be geeta elated clinically. No bony destructive lesion visualized There appears to be a third MCP joint effusion
--- NOTE | 2021-02-01 22:59 | ER ---
Nurse's Notes [facility] Name: Amaury Matamoros Age: 70 yrs Sex: Male : 1950 Arrival Date: 02/01/2021 Time: 18:56 Bed 8 Private MD: Diagnosis: Cellulitis of left upper limb Presentation: 02/01 19:17 Chief complaint: Patient states: Pain and swelling to L hand, pain and swelling to R ph foot and neck stiffness. denies fever. Coronavirus screen: Client denies travel out of the [place] in the last 14 days. At this time, the client does not indicate any symptoms associated with coronavirus-19. Ebola Screen: No symptoms or risks identified at this time. Initial Sepsis Screen: Does the patient meet any 2 criteria? No. Patient's initial sepsis screen is negative. Does the patient have a suspected source of infection? Yes: Skin breakdown/wound. Risk Assessment: Do you want to hurt yourself or someone else? Patient reports no desire to harm self or others. Onset of symptoms was February 01, 2021. 19:17 Method Of Arrival: Wheelchair 19:17 Acuity: ALEJANDRA 3 ph Triage Assessment: 19:25 General: Appears in no apparent distress. Behavior is calm, cooperative. Pain: Denies ak2 pain. Historical: - Allergies: 19:18 PENICILLINS; ph - Home Meds: 19:25 Metformin Oral [Active]; ak2 - PMHx: 19:18 Cellulitis; Diabetes - NIDDM; Hypertension; ph - Social history:: Smoking status: Patient denies any tobacco usage or history of. Screenin:25 Abuse screen: Denies threats or abuse. Denies injuries from another. Nutritional ak2 screening: No deficits noted. Tuberculosis screening: No symptoms or risk factors identified. Fall Risk None identified. Assessment: 19:25 General: Appears in no apparent distress. Pain: Denies pain. Neuro: No deficits noted. ak2 Cardiovascular: No deficits noted. 21:00 Reassessment: Patient and/or family updated on plan of care and expected duration. Pain ea level reassessed. Patient is alert, oriented x 3, equal unlabored respirations, skin warm/dry/pink. 23:10 Reassessment: Patient and/or family updated on plan of care and expected duration. Pain ak2 level reassessed. 23:10 General: report called to rn. ak2 Vital Signs: 19:17 BP 158 / 87; Pulse 78; Resp 18; Temp 97.5; Pulse Ox 98% on R/A; Weight 59.87 kg; Height ph 5 ft. 2 in. (157.48 cm); Pain 10/10; 23:10 BP 121 / 76; Pulse 71; Resp 18; Pulse Ox 98% on R/A; ak2 19:17 Body Mass Index 24.14 (59.87 kg, 157.48 cm) ph ED Course: 18:56 Patient arrived in ED. ds1 19:18 Triage completed. ph 19:19 Arm band placed on Patient placed in an exam room. ph 19:23 Wally Espinosa PA is PHCP. cp 19:23 Jose Powell MD is Attending Physician. cp 19:25 Patient has correct armband on for positive identification. ak2 19:25 No provider procedures requiring assistance completed. ak2 19:26 Christie Velasco, RN is Primary Nurse. ea 19:43 Inserted saline lock: 22 gauge in left antecubital area, using aseptic technique. Blood ea collected. 20:13 XRAY Hand LEFT 3 View In Process Unspecified. EDMS 20:45 UPPER EXTREMITY VENOUS UNILATE In Process Unspecified. EDMS 21:50 Upper Ext Wo Con W/ Mpr In Process Unspecified. EDMS 22:57 Garo Us MD is Hospitalizing Provider. cp 23:10 Patient admitted, IV remains in place. ea Administered Medications: 19:51 Drug: fentaNYL (PF) 25 mcg Route: IVP; Site: left upper arm; ak2 21:26 Follow up: Response: No adverse reaction ea 20:19 Drug: Clindamycin 600 mg Route: IVPB; Infused Over: 30 mins; Site: left antecubital; ak2 23:13 Follow up: Response: No adverse reaction; IV Intake: 100ml ea 23:13 Follow up: Response: No adverse reaction ea 21:26 Drug: LevaQUIN (levofloxacin) 500 mg Volume: 100 ml; Route: IVPB; Infused Over: 60 ea mins; Site: left antecubital; 23:13 Follow up: IV Status: Completed infusion; IV Intake: 100ml ea 21:26 Drug: Demerol (meperidine) 25 mg Route: IVP; Site: left antecubital; ea 23:12 Follow up: Response: No adverse reaction ea Intake: 23:13 IV: 100ml; Total: 100ml. ea 23:13 IV: 100ml; Total: 200ml. ea Outcome: 22:58 Decision to Hospitalize by Provider. cp 23:09 Admitted to Med/surg accompanied by nurse, via stretcher, with chart, Report called to ea Report called to receiving nurse 23:09 Condition: stable 23:09 Instructed on the need for admit, Demonstrated understanding of instructions, follow-up care. 23:14 Patient left the ED. ak2 Signatures: Dispatcher [employer] EDKS HarrellAlana fiore ds1 Lora Roe RN RN Wally Proctor PA PA cp Antunez, Elena, RN RN Nikita Quesada ak2 Corrections: (The following items were deleted from the chart) 23:13 23:13 IV Status: Completed infusion ea ea
--- NOTE | 2021-02-01 22:59 | EDPHYS ---
Physician Documentation [facility] Name: Amaury Matamoros Age: 70 yrs Sex: Male : 1950 Arrival Date: 02/01/2021 Time: 18:56 Bed 8 Private MD: ED Physician Jose Powell HPI: 02/01 19:45 This 70 yrs old Male presents to ER via Wheelchair with complaints of Hand cp Swelling. 19:45 The patient or guardian reports pain, swelling, tenderness. The complaints affect the cp dorsum of left hand. Context: resulted from an unknown cause. Onset: The symptoms/episode began/occurred 2 day(s) ago. Associated signs and symptoms: Pertinent negatives: cyanosis distally, decreased sensation distally, fever. 19:45 Patient also c/o neck pain and denies injury. cp Historical: - Allergies: 19:18 PENICILLINS; ph - Home Meds: 19:25 Metformin Oral [Active]; ak2 - PMHx: 19:18 Cellulitis; Diabetes - NIDDM; Hypertension; ph - Social history:: Smoking status: Patient denies any tobacco usage or history of. ROS: 19:50 Constitutional: Negative for body aches, chills, fever. cp 19:50 MS/extremity: Positive for erythema, pain, swelling, tenderness, of the dorsum of left hand, Negative for injury or acute deformity, paresthesias. 19:50 Eyes: Negative for injury, pain, redness, and discharge. cp 19:50 Neck: Positive for pain with movement, pain at rest, Negative for injury or acute deformity. 19:50 Cardiovascular: Negative for chest pain. 19:50 Respiratory: Negative for cough, shortness of breath, wheezing. 19:50 Abdomen/GI: Negative for abdominal pain, nausea, vomiting, and diarrhea. 19:50 Neuro: Negative for altered mental status, headache, numbness, weakness. 19:50 All other systems are negative. Exam: 19:55 Constitutional: The patient appears in no acute distress, alert, awake, cp non-diaphoretic, non-toxic, well developed, well nourished. 19:55 Head/Face: Normocephalic, atraumatic. cp 19:55 Eyes: Periorbital structures: appear normal, Conjunctiva: normal, no exudate, no injection, Sclera: no appreciated abnormality, Lids and lashes: appear normal, bilaterally. 19:55 ENT: External ear(s): are unremarkable, Nose: is normal, Mouth: Lips: moist, Oral mucosa: moist, Posterior pharynx: Airway: no evidence of obstruction, patent. 19:55 Neck: ROM/movement: pain, that is moderate, with any movement, Meningeal signs: are not present, nuchal rigidity, is not appreciated. 19:55 Chest/axilla: Inspection: normal, Palpation: is normal, no crepitus, no tenderness. 19:55 Cardiovascular: Rate: normal, Rhythm: regular, Edema: is not appreciated, JVD: is not appreciated. 19:55 Respiratory: the patient does not display signs of respiratory distress, Respirations: normal, no use of accessory muscles, no retractions, labored breathing, is not present, Breath sounds: are clear throughout, no decreased breath sounds, no stridor, no wheezing. 19:55 Abdomen/GI: Inspection: abdomen appears normal, Palpation: abdomen is soft and non-tender, in all quadrants. 19:55 Back: pain, is absent, ROM is normal. 19:55 Musculoskeletal/extremity: Extremities: grossly normal except: noted in the dorsum left hand: erythema, pain, swelling, tenderness, There is no evidence of decreased ROM, deformity, Perfusion: the extremity is normally perfused throughout, the left hand Severe pain noted. 19:55 Neuro: Orientation: to person, place \T\ time. Mentation: is normal. Vital Signs: 19:17 BP 158 / 87; Pulse 78; Resp 18; Temp 97.5; Pulse Ox 98% on R/A; Weight 59.87 kg; Height ph 5 ft. 2 in. (157.48 cm); Pain 10/10; 23:10 BP 121 / 76; Pulse 71; Resp 18; Pulse Ox 98% on R/A; ak2 19:17 Body Mass Index 24.14 (59.87 kg, 157.48 cm) ph MDM: 19:35 Patient medically screened. cp 20:00 Differential diagnosis: abscess, cellulitis, DVT, fracture, sepsis. cp 22:45 Data reviewed: vital signs, nurses notes, lab test result(s), radiologic studies, CT cp scan, plain films, I have discussed the patient's presentation/case with the attending Emergency Department Physician; and as a result, I will admit patient. 22:55 Physician consultation: Garo Us MD was called at 22:55, was contacted at 22:55, regarding admission, to the medical/surgical unit. patient's condition. 02/01 19:36 Order name: CBC with Diff; Complete Time: 20:10 cp 02/01 20:10 Interpretation: Normal except: RBC 3.71; HGB 11.3; HCT 32.6; RDW 15.9; LISET% 76.1; NEUT cp A 8.2. 02/01 19:36 Order name: BMP; Complete Time: 21:05 cp 02/01 21:05 Interpretation: Normal except: CL 110; CO2 20; GLUC 167; BUN 49; CRE 1.83; GFR 37; CA cp 7.9. 02/01 19:36 Order name: Blood Culture Adult (2) 02/01 19:37 Order name: Procalcitonin 02/01 19:38 Order name: Procalcitonin; Complete Time: 21:05 EDMS 02/01 21:06 Interpretation: Abnormal: Procalcitonin 0.13. 02/01 19:36 Order name: XRAY Hand LEFT 3 View; Complete Time: 21:05 cp 02/01 20:09 Order name: UPPER EXTREMITY VENOUS UNILATE; Complete Time: 21:13 EDMS 02/01 21:23 Order name: Upper Ext Wo Con W/ Mpr; Complete Time: 22:19 EDMS 02/01 21:28 Order name: SARS-COV-2 RT PCR; Complete Time: 22:19 EDMS 02/01 19:37 Order name: IV; Complete Time: 19:43 cp Administered Medications: 19:51 Drug: fentaNYL (PF) 25 mcg Route: IVP; Site: left upper arm; ak2 21:26 Follow up: Response: No adverse reaction ea 20:19 Drug: Clindamycin 600 mg Route: IVPB; Infused Over: 30 mins; Site: left antecubital; ak2 23:13 Follow up: Response: No adverse reaction; IV Intake: 100ml ea 23:13 Follow up: Response: No adverse reaction ea 21:26 Drug: LevaQUIN (levofloxacin) 500 mg Volume: 100 ml; Route: IVPB; Infused Over: 60 ea mins; Site: left antecubital; 23:13 Follow up: IV Status: Completed infusion; IV Intake: 100ml ea 21:26 Drug: Demerol (meperidine) 25 mg Route: IVP; Site: left antecubital; ea 23:12 Follow up: Response: No adverse reaction ea Disposition: 23:24 Co-signature as Attending Physician, Jose Powell MD. rn 23:43 I agree with the assessment and plan of care. PA/ENVIRONMENTAL FIELD PROFESSIONAL's history reviewed, patient rn interviewed, and examined. HPI: 70 year old male, + left hand swelling and pain, diabetic, no fever My personal exam of patient reveals: Swelling of the dorsum of the left hand most prominent on the third knuckle no open wounds no fluctuance no purulence. I agree with assessment and care plan and confirm the diagnosis (es) above. Disposition Summary: 02/01/21 22:58 Hospitalization Ordered Hospitalization Status: Inpatient Admission cp Provider: Garo Us cp Location: Telemetry/MedSurg (Inpatient) cp Condition: Stable cp Problem: new cp Symptoms: have improved cp Bed/Room Type: Standard cp Room Assignment: 220(02/01/21 23:01) Diagnosis - Cellulitis of left upper limb cp Forms: - Medication Reconciliation Form cp - SBAR form cp Signatures: Dispatcher [employer] EDMS Vesta Delong RN RN mw Nieto, Roman, MD MD rn Hall, Patricia, RN RN ph Page, Corey, PA PA cp Antunez, Elena, RN RN ea Kapolka, Anthony ak2 Corrections: (The following items were deleted from the chart) 20:09 19:38 Extremity Venous Uni Ltd+US.RAD.BRZ ordered. EDMS EDMS 20:36 19:52 CORONAVIRUS+MR.LAB.BRZ ordered. EDMS EDMS 21:23 21:20 Hand Left Wo Con ordered. EDMS EDMS 22:04 22:03 MS/extremity: Positive for erythema, pain, swelling, tenderness, of the dorsum of cp left hand, Negative for injury or acute deformity, paresthesias, cp 22:04 22:03 Constitutional: Negative for body aches, chills, fever, cp cp 23:01 22:58 cp
[2021-02-01] MEDS ORDERED: ACETAMINOPHEN 500 MG TAB PO PRN (23:16)
[2021-02-01] MEDS ORDERED: Pharmacy Consult 1 EA XX PRN (23:18)
[2021-02-02] MEDS ORDERED: Levofloxacin500mg IV 500 MG/100 ML BAG IV ONE
[2021-02-02] MEDS ORDERED: VANCOMYCIN/NS 1 gm 1 GM/250 ML BAG IVPB SCH
[2021-02-02] MEDS ORDERED: Levofloxacin 750mg IV 750 MG/150 ML BAG IV SCH
[2021-02-02] MEDS ORDERED: VANCOMYCIN 1 GM/VIAL ONE (00:52)
[2021-02-02] MEDS ORDERED: NA CHLORIDE 0.9% 250 ML ONE (00:52)
[2021-02-02] MEDS: MORPHINE 4 MG/ML SYR IV PRN ×4 (01:28→21:53)
[2021-02-02] MEDS: MORPHINE 4 MG/ML SYR ONE ×2 (01:28→06:34)
[2021-02-02 05:47] VITALS: BMI 20.7
[2021-02-02 05:52] LABS: Potassium 3.7 mmol/L (3.5-5.1)
[2021-02-02 05:59] LABS: RBC Red Blood Cell Count 3.42 M/uL (4.33-5.43)
[2021-02-02 06:00] LABS: Absolute Lymphocytes (CBC) 1.1 K/uL (0.7-4.9); Basophils % 0.5 % (0-1.3); Hematocrit 30.3 % (39.6-49.0); Lymphocytes % 13.3 % (15.3-44.8); MPV 7.8 fL (7.6-11.3)
[2021-02-02] MEDS ORDERED: GLUCAGON 1 MG/VIAL IM PRN (09:07)
[2021-02-02] MEDS ORDERED: D50W 25 GM/50 ML SYRINGE IV PRN (09:07)
--- NOTE | 2021-02-02 09:17 | P.HP ---
Certification for Inpatient Patient admitted to: Inpatient With expected LOS: >2 Midnights Patient will require the following post-hospital care: Nursing Home Practitioner: I am a practitioner with admitting privileges, knowledge of patient current condition, hospital course, and medical plan of care. Services: Services provided to patient in accordance with Admission requirements found in Title 42 Section 412.3 of the Code of Federal Regulations Patient History Date of Service: 02/02/21 Primary Care Provider: Magen Reason for admission: left hand cellulitis History of Present Illness: Patient is an office patient of [facility]. He has a history of diabetes and htn. The patient comes in with swelling and pain of his right hand. Had a ct which showed soft tissue swelling. However no abcess. he was admitted for iv antibiotics. He does not recall any injuries. No recent fishing. Allergies Penicillins Allergy (Intermediate, Verified 03/03/19 18:20) Rash Home medications list reviewed: Yes Home Medications: Amlodipine [Norvasc*] 5 mg PO DAILY #30 tab 12/02/20 Gabapentin [Neurontin*] 100 mg PO TID #90 cap 12/02/20 Metoprolol Tartrate [Lopressor*] 25 mg PO BID #60 tab 12/02/20 Metoprolol Succinate 1 tab PO DAILY 02/02/21 - Past Medical/Surgical History Diabetic: Yes -: Diabetes mellitus type 2, [id number] -: DM-NIDDM -: Alcohol Abuse -: Tobacco Abuse -: Hypertension -: Chronic pain -: Chronic sacral ulcer -: Left Knee Surgery -: Left BKA with Prosthetic blood -: surg wnd on coccyx wound Psychosocial/ Personal History: He is , has 4 children. He is disabled. - Family History Father -: Heart disease, Hypertension, Diabetes, Cancer Mother -: Diabetes, Stroke - Social History Smoking Status: Former smoker Alcohol use: Yes CD- Drugs: No Caffeine use: No Place of Residence: Home Review of Systems 10-point ROS is otherwise unremarkable Integumentary: Other (erythema warmth and tenderness of the left hand) Physical Examination - Vital Signs Temperature: 97.6 F Blood Pressure: 169/91 Pulse: 67 Respirations: 18 Pulse Ox (%): 100 - Physical Exam General: Alert, In no apparent distress HEENT: Atraumatic, PERRLA, Mucous membr. moist/pink, EOMI, Sclerae nonicteric Neck: Supple, 2+ carotid pulse no bruit, No LAD, Without JVD or thyroid abnormality Respiratory: Clear to auscultation bilaterally, Normal air movement Cardiovascular: Regular rate/rhythm, Normal S1 S2 Gastrointestinal: Normal bowel sounds, No tenderness Musculoskeletal: No tenderness Integumentary: No rashes, Tenderness/swelling (left hand) Neurological: Normal gait, Normal speech, Normal strength at 5/5 x4 extr, Normal tone, Normal affect Lymphatics: No axilla or inguinal lymphadenopathy - Studies Laboratory Data (last 24 hrs) 02/01/21 19:50: Sodium 137, Potassium 4.0, BUN 49 H, Creatinine 1.83 H, Glucose 167 H 02/01/21 19:50: WBC 10.80, Hgb 11.3 L, Hct 32.6 L, Plt Count 153 Assessment and Plan - Problems (Diagnosis) (1) Cellulitis and abscess of hand Current Visit: Yes Status: Acute Plan: Have consulted the [facility]. We can continue the vancomycin. Will switch levaquin to ceftriaxone. Await the culture report. As the ct showed no abcess no reason for hand consult. Will add some scheduled hydrocodones for pain management and have the patients morphine used prn (2) Diabetes Current Visit: Yes Status: Acute Plan: will start him on sliding scale. 1800 kcal ada diet. Will check his office chart for his home medications. Qualifiers: Diabetes mellitus type: type 2 Diabetes mellitus termination clerk insulin use: unspecified residential insulin use status Diabetes mellitus complication status: with circulatory complication Diabetes mellitus complication detail: with peripheral angiopathy with gangrene Qualified Code(s): E11.52 - Type 2 diabetes mellitus with diabetic peripheral angiopathy with gangrene (3) Hypertension Onset Date: 04/24/18 Current Visit: No Status: Chronic Plan: will start the patient on his home meds. adjust as necessary. Qualifiers: Hypertension type: primary hypertension Qualified Code(s): I10 - Essential (primary) hypertension Discharge Plan: Home Plan to discharge in: 48 Hours - Advance Directives Does patient have a Living Will: No Does patient have a Durable POA for Healthcare: No - Code Status/Comfort Care Code Status Assessed: Yes Code Status: Full Code Physician Review: Patient Assessed, Agree with Above Assessment and Plan Critical Care: No Time Spent Managing Pts Care (In Minutes): 45
[2021-02-02] MEDS: CEFTRIAXONE/SWI 2gm 2 GM/20 ML SYR IV SCH (09:51)
[2021-02-02] MEDS: INSULIN -REGULAR HUMAN 50 UNIT/0.5 ML ML SQ SCH ×3 (11:30→21:00)
[2021-02-02] MEDS: GABAPENTIN 100 MG CAP PO SCH ×2 (13:54→21:21)
[2021-02-02] MEDS: HYDROCODONE/APAP 7.5/325 MG TAB PO SCH (16:48)
[2021-02-02] MEDS: ENOXAPARIN 40 MG/0.4 ML SQ SCH (16:48)
[2021-02-02] MEDS: ONDANSETRON 4 MG/2 ML VIAL IV PRN (17:48)
[2021-02-02] MEDS: METOPROLOL TAR 25 MG TAB PO SCH (21:22)
[2021-02-03] MEDS: HYDROCODONE/APAP 7.5/325 MG TAB PO SCH ×3 (01:00→16:11)
[2021-02-03] MEDS: ONDANSETRON 4 MG/2 ML VIAL IV PRN ×2 (03:58→12:46)
[2021-02-03] MEDS: MORPHINE 4 MG/ML SYR IV PRN ×2 (03:59→09:34)
[2021-02-03 04:27] LABS: Absolute Lymphocytes (CBC) 1.6 K/uL (0.7-4.9); Basophils % 0.8 % (0-1.3); Hematocrit 31.3 % (39.6-49.0); Lymphocytes % 21.4 % (15.3-44.8); MPV 8.1 fL (7.6-11.3); RBC Red Blood Cell Count 3.58 M/uL (4.33-5.43)
[2021-02-03 05:02] LABS: Albumin 2.2 g/dL (3.4-5.0); Bilirubin Total 0.4 mg/dL (0.2-1.0); Protein, Total 6.9 g/dL (6.4-8.2); Thyroid Stimulating Hormone 3.14 uIU/mL (0.360-3.740)
[2021-02-03] MEDS: VANCOMYCIN/NS 1 gm 1 GM/250 ML BAG IVPB SCH (05:47)
[2021-02-03] MEDS: INSULIN -REGULAR HUMAN 50 UNIT/0.5 ML ML SQ SCH ×4 (07:30→21:00)
[2021-02-03] MEDS: METOPROLOL TAR 25 MG TAB PO SCH ×2 (08:41→21:39)
[2021-02-03] MEDS: CEFTRIAXONE/SWI 2gm 2 GM/20 ML SYR IV SCH (08:42)
[2021-02-03] MEDS: GABAPENTIN 100 MG CAP PO SCH ×3 (08:42→21:40)
[2021-02-03] MEDS ORDERED: AMLODIPINE 5 MG TAB PO SCH (09:00)
[2021-02-03] MEDS ORDERED: METOPROLOL XL 50 MG TAB PO SCH (09:00)
--- NOTE | 2021-02-03 12:19 | P.PN ---
Subjective Date of Service: 02/03/21 Primary Care Provider: Magen Chief Complaint: left hand cellulitis Subjective: Improving (swelling of the hand is decreasing) Review of Systems 10-point ROS is otherwise unremarkable Musculoskeletal: Hand Pain (left,) Physical Examination - Vital Signs Temperature: 97.0 F Blood Pressure: 176/88 Pulse: 67 Respirations: 17 Pulse Ox (%): 96 - Physical Exam General: Alert, In no apparent distress HEENT: Atraumatic, PERRLA, EOMI Neck: Supple, JVD not distended Respiratory: Clear to auscultation bilaterally, Normal air movement Cardiovascular: Regular rate/rhythm, Normal S1 S2 Gastrointestinal: Normal bowel sounds, No tenderness Musculoskeletal: Swelling (left hand, improving), Tenderness (left hand, improving), Warmth (left hand, improving) Integumentary: No rashes Neurological: Normal speech, Normal tone, Normal affect Lymphatics: No axilla or inguinal lymphadenopathy Assessment & Plan - Problems (Diagnosis) (1) Cellulitis and abscess of hand Current Visit: Yes Status: Acute Plan: Have consulted the [facility]. We can continue the vancomycin. Will switch levaquin to ceftriaxone. Await the culture report. As the ct showed no abcess no reason for hand consult. Will add some scheduled hydrocodones for pain management and have the patients morphine used prn 02/03 will continue with iv antibiotics and meds. Will keep the patient for 48 hours of iv antibiotics before discharge (2) Diabetes Current Visit: Yes Status: Acute Plan: will start him on sliding scale. 1800 kcal ada diet. Will check his office chart for his home medications. Qualifiers: Diabetes mellitus type: type 2 Diabetes mellitus alf insulin use: unspecified alf insulin use status Diabetes mellitus complication status: with circulatory complication Diabetes mellitus complication detail: with peripheral angiopathy with gangrene Qualified Code(s): E11.52 - Type 2 diabetes mellitus with diabetic peripheral angiopathy with gangrene (3) Hypertension Onset Date: 04/24/18 Current Visit: No Status: Chronic Plan: will start the patient on his home meds. adjust as necessary. 02/03 will increase his amlodipine to 10mg Qualifiers: Hypertension type: primary hypertension Qualified Code(s): I10 - Essential (primary) hypertension (4) Stage 3 chronic kidney disease Current Visit: Yes Status: Acute Plan: will start with gentle fluid hydration. I believe he has been seen by Dr. Marr in the past Qualifiers: Chronic kidney disease stage 3 subtype: stage 3b (GFR 30-44) Qualified Code(s): N18.32 - Chronic kidney disease, stage 3b Discharge Plan: Home Plan to discharge in: 24 Hours - Code Status/Comfort Care Code Status Assessed: No Physician Review: Patient Assessed, Agree with Above Assessment and Plan Critical Care: No Time Spent Managing Pts Care (In Minutes): 20
[2021-02-03] MEDS: NA CHLORIDE 0.9% 1,000 ML IV SCH (12:46)
[2021-02-03] MEDS ORDERED: PROMETHAZINE INJ 25 MG/ML AMP IM PRN (14:14)
[2021-02-03] MEDS ORDERED: PROMETHAZINE INJ 25 MG/ML AMP IV PRN (14:28)
[2021-02-03] MEDS: ENOXAPARIN 40 MG/0.4 ML SQ SCH (16:11)
[2021-02-03] MEDS ORDERED: Levofloxacin 750mg IV 750 MG/150 ML BAG IV SCH (21:00)
--- NOTE | 2021-02-03 22:09 | P.CNS ---
Date of Consult: 02/03/21 Reason for Consult: CALDERON/ CKD Requesting Physician: Garo Us Primary Care Provider: Magen Chief Complaint: left hand cellulitis History of Present Illness: 70 yo HM DM, HTN, CKD presented to the ER with 1-2 days of moderate, progressive swelling of his right hand with associated pain. In the hospital, he was found to have urinary retention and a winkler was placed. The patient was difficult to arouse at the time of visit limiting the HPI/ ROS. He has a history of diabetes and htn. The patient comes in with swelling and pain of his right hand. Had a ct which showed soft tissue swelling. However no abcess. he was admitted for iv antibiotics. He does not recall any injuries. No recent fishing. 19:45 This 70 yrs old Male presents to ER via Wheelchair with complaints of Hand cp Swelling. 19:45 The patient or guardian reports pain, swelling, tenderness. The complaints affect the cp dorsum of left hand. Context: resulted from an unknown cause. Onset: The symptoms/episode began/occurred 2 day(s) ago. Associated signs and symptoms: Pertinent negatives: cyanosis distally, decreased sensation distally, fever. 19:45 Patient also c/o neck pain and denies injury. Allergies Penicillins Allergy (Intermediate, Verified 03/03/19 18:20) Rash Home medications list reviewed: Yes Home Medications: Amlodipine [Norvasc*] 5 mg PO DAILY #30 tab 12/02/20 Gabapentin [Neurontin*] 100 mg PO TID #90 cap 12/02/20 Metoprolol Tartrate [Lopressor*] 25 mg PO BID #60 tab 12/02/20 Metoprolol Succinate 1 tab PO DAILY 02/02/21 - Past Medical/Surgical History Diabetic: Yes -: Diabetes mellitus type 2, [id number] -: DM-NIDDM -: Alcohol Abuse -: Tobacco Abuse -: Hypertension -: Chronic pain -: Chronic sacral ulcer -: Left Knee Surgery -: Left BKA with Prosthetic blood -: surg wnd on coccyx wound Psychosocial/ Personal History: He is , has 4 children. He is disabled. - Family History Father Medical History: Heart disease, Hypertension, Diabetes, Cancer Mother Medical History: Diabetes, Stroke - Social History Smoking Status: Current some day smoker Alcohol use: Yes CD- Drugs: No Caffeine use: No Place of Residence: Home Review of Systems 10-point ROS is otherwise unremarkable General: Weakness, Malaise Neurological: Weakness Physical Examination Temp Pulse Resp BP Pulse Ox 97.5 F 63 17 179/79 H 96 02/03/21 16:00 02/03/21 21:39 02/03/21 17:11 02/03/21 21:39 02/03/21 17:11 General: In no apparent distress HEENT: Atraumatic Neck: Supple Respiratory: Clear to auscultation bilaterally Cardiovascular: No edema, Regular rate/rhythm Gastrointestinal: Soft and benign, Non-distended Musculoskeletal: No clubbing, No contractures Integumentary: No rashes, No cyanosis Blood work reviewed in the chart. Imagings Data: EXAM DESCRIPTION: CT - Upper Ext Wo Con W/ Mpr - 02/01/2021 9:50 pm CLINICAL HISTORY: Hand swelling COMPARISON: None. TECHNIQUE: Computed axial tomography obtained from lab the elbow to the hand. Coronal and sagittal reconstruction All CT scans are performed using dose optimization technique as appropriate and may include automated exposure control or mA/KV adjustment according to patient size. FINDINGS: No fracture or dislocation. There is diffuse edema within the subcutaneous tissues of the forearm and hand. No bony destructive lesion is visualized. Vascular calcifications are present. No gross abnormality of the musculature visualized although examination is somewhat limited on CT There appears to be a third MCP joint effusion IMPRESSION: Diffuse edema within the subcutaneous tissues may indicate cellulitis and should be correlated clinically. No bony destructive lesion visualized There appears to be a third MCP joint effusion Conclusions/Impression: CALDERON likely hypovolemia complicated by urinary retention CKD III with proteinuria -No NSAIDs -Agree with gentle IVF Hypocalcemia -Start Vitamin D3 HTN with CKD/ CHF -Continue Amlodipine Diastolic CHF, chronic Moderate MR Pulmonary HTN -Continue Metoprolol DM II with CKD & Polyneuropathy -RISS Moderate malnutrition -Encourage nutrition Anemia in chronic illness -Monitor H&H BPH with LUTS Urinary retention -Start Flomax -Agree with winkler Right hand cellulitis -Continue abx. Monitor vanc level Thank you kindly for the consultation. Case reviewed with Dr. Us
[2021-02-03] MEDS: TAMSULOSIN 0.4 MG SR CAP PO SCH (22:58)
[2021-02-04] MEDS: HYDROCODONE/APAP 7.5/325 MG TAB PO SCH ×3 (00:34→17:26)
[2021-02-04 05:59] LABS: Absolute Lymphocytes (CBC) 1.7 K/uL (0.7-4.9); Basophils % 1.1 % (0-1.3); Lymphocytes % 22.3 % (15.3-44.8); MPV 7.8 fL (7.6-11.3); RBC Red Blood Cell Count 3.34 M/uL (4.33-5.43)
[2021-02-04 06:12] LABS: Magnesium 2.1 mg/dL (1.8-2.4); Phosphorus 4.9 mg/dL (2.5-4.9); Uric Acid 8.6 mg/dL (3.5-7.2)
[2021-02-04 06:17] LABS: Bilirubin Total 0.3 mg/dL (0.2-1.0); Potassium 4.2 mmol/L (3.5-5.1); Protein, Total 6.5 g/dL (6.4-8.2)
[2021-02-04] MEDS: AMLODIPINE 10 MG TAB PO SCH (06:22)
[2021-02-04] MEDS: METOPROLOL TAR 25 MG TAB PO SCH ×2 (06:25→20:33)
[2021-02-04] MEDS: INSULIN -REGULAR HUMAN 50 UNIT/0.5 ML ML SQ SCH ×4 (07:30→20:34)
[2021-02-04] MEDS: TAMSULOSIN 0.4 MG SR CAP PO SCH ×2 (08:13→20:33)
[2021-02-04] MEDS: GABAPENTIN 100 MG CAP PO SCH ×3 (08:13→20:33)
[2021-02-04] MEDS: VITAMIN D 5,000 UNIT CAP PO SCH (08:13)
[2021-02-04] MEDS: CEFTRIAXONE/SWI 2gm 2 GM/20 ML SYR IV SCH (08:13)
[2021-02-04 08:41] LABS: Urine Appearance CLOUDY (Clear); Urine Bilirubin NEGATIVE (Negative); Urine Blood 2+ (Negative); Urine Color YELLOW (Yellow); Urine Glucose NEGATIVE (Negative); Urine Protein 2+ (Negative); Urine Specific Gravity 1.015 (1.005-1.030); Urine Urobilinogen 0.2 mg/dL (0.2-1.0); Urine pH 5.5 (5.0-7.0)
[2021-02-04 09:26] LABS: Urine Bacteria <20 /HPF (NONE SEEN)
[2021-02-04] MEDS: NA CHLORIDE 0.9% 1,000 ML IV SCH (10:57)
--- NOTE | 2021-02-04 11:02 | P.PN ---
Subjective Date of Service: 02/04/21 Primary Care Provider: Magen Chief Complaint: left hand cellulitis Subjective: No new changes Review of Systems 10-point ROS is otherwise unremarkable Physical Examination - Vital Signs Temperature: 97.8 F Blood Pressure: 124/63 Pulse: 66 Respirations: 16 Pulse Ox (%): 92 - Physical Exam General: Alert, In no apparent distress HEENT: Atraumatic, PERRLA, EOMI Neck: Supple, JVD not distended Respiratory: Clear to auscultation bilaterally, Normal air movement Cardiovascular: Regular rate/rhythm, Normal S1 S2 Gastrointestinal: Normal bowel sounds, No tenderness Musculoskeletal: No tenderness Integumentary: No rashes Neurological: Normal speech, Normal tone, Normal affect Lymphatics: No axilla or inguinal lymphadenopathy Assessment & Plan - Problems (Diagnosis) (1) Acute on chronic renal failure Current Visit: Yes Status: Acute Plan: improving with fluids and winkler. Dr. Marr is on board. will keep him in house for a day Qualifiers: Acute renal failure type: unspecified Chronic kidney disease stage: stage 3 (moderate) (2) Cellulitis and abscess of hand Current Visit: Yes Status: Acute Plan: Have consulted the [facility]. We can continue the vancomycin. Will switch levaquin to ceftriaxone. Await the culture report. As the ct showed no abcess no reason for hand consult. Will add some scheduled hydrocodones for pain management and have the patients morphine used prn 02/03 will continue with iv antibiotics and meds. Will keep the patient for 48 hours of iv antibiotics before discharge (3) Diabetes Current Visit: Yes Status: Acute Plan: will start him on sliding scale. 1800 kcal ada diet. Will check his office chart for his home medications. Qualifiers: Diabetes mellitus type: type 2 Diabetes mellitus snf insulin use: unspecified snf insulin use status Diabetes mellitus complication status: with circulatory complication Diabetes mellitus complication detail: with peripheral angiopathy with gangrene Qualified Code(s): E11.52 - Type 2 diabetes mellitus with diabetic peripheral angiopathy with gangrene (4) Hypertension Onset Date: 04/24/18 Current Visit: No Status: Chronic Plan: will start the patient on his home meds. adjust as necessary. 02/03 will increase his amlodipine to 10mg Qualifiers: Hypertension type: primary hypertension Qualified Code(s): I10 - Essential (primary) hypertension (5) Stage 3 chronic kidney disease Current Visit: Yes Status: Acute Plan: will start with gentle fluid hydration. I believe he has been seen by Dr. Marr in the past Qualifiers: Chronic kidney disease stage 3 subtype: stage 3b (GFR 30-44) Qualified Code(s): N18.32 - Chronic kidney disease, stage 3b Discharge Plan: Home Plan to discharge in: 24 Hours - Code Status/Comfort Care Code Status Assessed: No Physician Review: Patient Assessed, Agree with Above Assessment and Plan Critical Care: No Time Spent Managing Pts Care (In Minutes): 25
[2021-02-04] MEDS: NACHLORIDE 0.45% 1,000 ML IV SCH (15:57)
[2021-02-04] MEDS: ENOXAPARIN 40 MG/0.4 ML SQ SCH (17:26)
[2021-02-04] MEDS: VANCOMYCIN/NS 1 gm 1 GM/250 ML BAG IVPB SCH (17:27)
--- NOTE | 2021-02-04 18:56 | P.PN ---
Date of Service: 02/04/21 Vital Signs Temp Pulse Resp BP Pulse Ox 99 F 73 18 131/67 94 02/04/21 15:50 02/04/21 15:50 02/04/21 17:26 02/04/21 15:50 02/04/21 17:26 Medications Acetaminophen (Acetaminophen 500 Mg Tab) 500 mg PO Q6H PRN PRN Reason: TEMP > 100' F Hydrocodone Bitart/Acetaminophen (Hydrocodone/Apap 7.5/325 Mg Tab) 1 tab PO Q8HR [facility] Last Admin: 02/04/21 17:26 Dose: 1 tab Documented by: Amlodipine Besylate (Amlodipine 10 Mg Tab) 10 mg PO DAILY [facility] Last Admin: 02/04/21 06:22 Dose: 10 mg Documented by: Cholecalciferol (Vitamin D 5,000 Unit Cap) 5,000 unit PO DAILY [facility] Last Admin: 02/04/21 08:13 Dose: 5,000 unit Documented by: Dextrose (D50w 25 Gm/50 Ml Syringe) 12.5 gm IV PRN PRN; Protocol PRN Reason: HYPOGLYCEMIA Enoxaparin Sodium (Enoxaparin 40 Mg/0.4 Ml) 40 mg SQ DAILY 5 PM [facility] Last Admin: 02/04/21 17:26 Dose: 40 mg Documented by: Gabapentin (Gabapentin 100 Mg Cap) 100 mg PO TID [facility] Last Admin: 02/04/21 13:44 Dose: 100 mg Documented by: Glucagon (Glucagon 1 Mg/Vial) 1 mg IM 1X PRN; Protocol PRN Reason: HYPOGLYCEMIA Pharmacy Consult (Pharmacy Consult) 1 mls @ 1 mls/hr XX DAILYPRN PRN; Protocol PRN Reason: Vancomycin dose by pharmacy Ceftriaxone Sodium/Sodium Chloride (Rocephin 2 Gm/20 Ml Swi Ivp) 2 gm in 20 mls @ 600 mls/hr IV DAILY [facility]; Protocol Last Admin: 02/04/21 08:13 Dose: 20 mls Documented by: Sodium Chloride (Sodium Chloride 0.45%) 1,000 mls @ 75 mls/hr IV .[id number] [facility] Last Admin: 02/04/21 15:57 Dose: Not Given Documented by: Vancomycin HCl (Vancomycin 1 Gm/250 Ml Ns Ivpb) 1 gm in 250 mls @ 150 mls/hr IVPB Q48H [facility] Insulin Human Regular (Insulin -Regular Human 50 Unit/0.5 Ml Ml) 0 unit SQ ACHS [facility]; Protocol Last Admin: 02/04/21 15:58 Dose: Not Given Documented by: Metoprolol Tartrate (Metoprolol Tar 25 Mg Tab) 25 mg PO BID [facility] Last Admin: 02/04/21 06:25 Dose: 25 mg Documented by: Morphine Sulfate (Morphine 4 Mg/Ml Syr) 4 mg IV Q4H PRN PRN Reason: Pain scale 5-7 (Moderate) Last Admin: 02/03/21 09:34 Dose: 4 mg Documented by: Ondansetron HCl (Ondansetron 4 Mg/2 Ml Vial) 4 mg IV Q6H PRN PRN Reason: NAUSEA / VOMITING Last Admin: 02/03/21 12:46 Dose: 4 mg Documented by: Promethazine HCl (Promethazine Inj 25 Mg/Ml Amp) 25 mg IV Q4HP PRN PRN Reason: NAUSEA / VOMITING Last Admin: 02/03/21 16:12 Dose: 25 mg Documented by: Sodium Chloride (Flush Normal Saline 10 Ml) 10 ml IV BID [facility] Last Admin: 02/04/21 08:14 Dose: Not Given Documented by: Tamsulosin HCl (Tamsulosin 0.4 Mg Sr Cap) 0.4 mg PO BID [facility] Last Admin: 02/04/21 08:13 Dose: 0.4 mg Documented by: Microbiology Results 02/01/21 19:30 Blood - Blood Aerobic Blood Culture - Preliminary No growth in 24 hours. 02/01/21 19:30 Blood - Blood Anaerobic Blood Culture - Preliminary No growth in 24 hours. 02/01/21 19:50 Blood - Blood Aerobic Blood Culture - Preliminary No growth in 24 hours. 02/01/21 19:50 Blood - Blood Anaerobic Blood Culture - Preliminary No growth in 24 hours. Assessment/ Plan: Nephrology Feeling better today. Persistent left hand erythema and swelling No acute events overnight. Vitals, medications, blood work and imaging reviewed in the chart. General: In no apparent distress HEENT: Atraumatic Neck: Supple Respiratory: Clear to auscultation bilaterally Cardiovascular: No edema, Regular rate/rhythm Gastrointestinal: Soft and benign, Non-distended Musculoskeletal: No clubbing, No contractures Integumentary: No rashes, No cyanosis Blood work reviewed in the chart. Imagings Data: EXAM DESCRIPTION: CT - Upper Ext Wo Con W/ Mpr - 02/01/2021 9:50 pm CLINICAL HISTORY: Hand swelling COMPARISON: None. TECHNIQUE: Computed axial tomography obtained from lab the elbow to the hand. Coronal and sagittal reconstruction All CT scans are performed using dose optimization technique as appropriate and may include automated exposure control or mA/KV adjustment according to patient size. FINDINGS: No fracture or dislocation. There is diffuse edema within the subcutaneous tissues of the forearm and hand. No bony destructive lesion is visualized. Vascular calcifications are present. No gross abnormality of the musculature visualized although examination is somewhat limited on CT There appears to be a third MCP joint effusion IMPRESSION: Diffuse edema within the subcutaneous tissues may indicate cellulitis and should be correlated clinically. No bony destructive lesion visualized There appears to be a third MCP joint effusion Conclusions/Impression: CALDERON likely hypovolemia complicated by urinary retention CKD III with proteinuria -No NSAIDs -Change IVF 1/2NS Hypocalcemia -Continue Vitamin D3 HTN with CKD/ CHF -Continue Amlodipine Diastolic CHF, chronic Moderate MR Pulmonary HTN -Continue Metoprolol DM II with CKD & Polyneuropathy -RISS Moderate malnutrition -Encourage nutrition Anemia in chronic illness -Monitor H&H BPH with LUTS Urinary retention -Continue Flomax -Agree with winkler Right hand cellulitis -Continue abx. Monitor vanc level
[2021-02-05] MEDS: HYDROCODONE/APAP 7.5/325 MG TAB PO SCH ×2 (01:00→08:40)
[2021-02-05] MEDS: MORPHINE 4 MG/ML SYR IV PRN (01:20)
[2021-02-05 02:39] VITALS: O2SAT 94
[2021-02-05] MEDS: METOPROLOL TAR 25 MG TAB PO SCH (05:47)
[2021-02-05] MEDS: AMLODIPINE 10 MG TAB PO SCH (05:48)
[2021-02-05 06:24] LABS: Absolute Lymphocytes (CBC) 1.9 K/uL (0.7-4.9); Basophils % 0.7 % (0-1.3); Hematocrit 26.9 % (39.6-49.0); Lymphocytes % 24.1 % (15.3-44.8); MPV 8.2 fL (7.6-11.3); RBC Red Blood Cell Count 3.07 M/uL (4.33-5.43)
[2021-02-05 06:44] LABS: Albumin 2.1 g/dL (3.4-5.0); Bilirubin Total 0.3 mg/dL (0.2-1.0); Potassium 3.8 mmol/L (3.5-5.1); Protein, Total 6.4 g/dL (6.4-8.2)
[2021-02-05] MEDS: NACHLORIDE 0.45% 1,000 ML IV SCH (06:52)
[2021-02-05] MEDS: INSULIN -REGULAR HUMAN 50 UNIT/0.5 ML ML SQ SCH (07:30)
[2021-02-05 08:07] VITALS: BP 157/70; TEMP 98.2
[2021-02-05] MEDS: TAMSULOSIN 0.4 MG SR CAP PO SCH (08:40)
[2021-02-05] MEDS: GABAPENTIN 100 MG CAP PO SCH (08:40)
[2021-02-05] MEDS: CEFTRIAXONE/SWI 2gm 2 GM/20 ML SYR IV SCH (08:41)
[2021-02-05] MEDS: VITAMIN D 5,000 UNIT CAP PO SCH (08:41)
--- NOTE | 2021-02-05 09:55 | P.DS ---
Admission Date: 02/01/21 Discharge Date: 02/05/21 Primary Care Provider: Magen Disposition: ROUTINE DISCHARGE Discharge Condition: FAIR Reason for Admission: left hand cellulitis - Problems (1) Acute on chronic renal failure Current Visit: Yes Status: Acute Qualifiers: Acute renal failure type: unspecified Chronic kidney disease stage: stage 3 (moderate) (2) Cellulitis and abscess of hand Current Visit: Yes Status: Acute (3) Diabetes Current Visit: Yes Status: Acute Qualifiers: Diabetes mellitus type: type 2 Diabetes mellitus intermediate designer insulin use: unspecified long-term insulin use status Diabetes mellitus complication status: with circulatory complication Diabetes mellitus complication detail: with peripheral angiopathy with gangrene Qualified Code(s): E11.52 - Type 2 diabetes mellitus with diabetic peripheral angiopathy with gangrene (4) Hypertension Onset Date: 04/24/18 Current Visit: No Status: Chronic Qualifiers: Hypertension type: primary hypertension Qualified Code(s): I10 - Essential (primary) hypertension (5) Stage 3 chronic kidney disease Current Visit: Yes Status: Acute Qualifiers: Chronic kidney disease stage 3 subtype: stage 3b (GFR 30-44) Qualified Code(s): N18.32 - Chronic kidney disease, stage 3b Brief History of Present Illness: Patient is an office patient of [facility]. He has a history of diabetes and htn. The patient comes in with swelling and pain of his right hand. Had a ct which showed soft tissue swelling. However no abcess. he was admitted for iv antibiotics. He does not recall any injuries. No recent fishing. Hospital Course: Patient has been asking to go home multiple times during the admission. Will send him home with a winkler. Use zitromax and bactiim. Guidelines recomend cephalexin but qid dosing. Which I don't think he will be able to mcclure. Will send him home with the easier, shorter regiment. Will have him follow up with me on Sunday Recheck a creatine. Refer him to Dr. Alberto Schrader for the urinary obstruction. Vital Signs/Physical Exam: Temp Pulse Resp BP Pulse Ox 98.2 F 72 18 157/70 H 98 02/05/21 08:00 02/05/21 08:00 02/05/21 08:40 02/05/21 08:00 02/05/21 08:40 General: Alert, In no apparent distress HEENT: Atraumatic, PERRLA, EOMI Neck: Supple, JVD not distended Respiratory: Clear to auscultation bilaterally, Normal air movement Cardiovascular: Regular rate/rhythm, Normal S1 S2 Gastrointestinal: Normal bowel sounds, No tenderness Musculoskeletal: No tenderness Integumentary: No rashes Neurological: Normal speech, Normal tone, Normal affect Lymphatics: No axilla or inguinal lymphadenopathy Laboratory Data at Discharge: WBC 7.80 K/uL (4.3-10.9) 02/05/21 06:12 Hgb 9.4 g/dL (13.6-17.9) L 02/05/21 06:12 Hct 26.9 % (39.6-49.0) L 02/05/21 06:12 Plt Count 123 K/uL (152-406) L D 02/05/21 06:12 Sodium 141 mmol/L (136-145) 02/05/21 06:12 Potassium 3.8 mmol/L (3.5-5.1) 02/05/21 06:12 BUN 40 mg/dL (7-18) H 02/05/21 06:12 Creatinine 2.18 mg/dL (0.55-1.3) H 02/05/21 06:12 Glucose 79 mg/dL (74-106) 02/05/21 06:12 Uric Acid 8.6 mg/dL (3.5-7.2) H D 02/04/21 05:18 Phosphorus 4.9 mg/dL (2.5-4.9) 02/04/21 05:18 Magnesium 2.1 mg/dL (1.8-2.4) 02/04/21 05:18 Total Bilirubin 0.3 mg/dL (0.2-1.0) 02/05/21 06:12 AST 44 U/L (15-37) H 02/05/21 06:12 ALT 26 U/L (12-78) 02/05/21 06:12 Alkaline Phosphatase 207 U/L (45-117) H 02/05/21 06:12 Home Medications: RX: Amlodipine [Norvasc*] 5 mg PO DAILY #30 tab 12/02/20 RX: Gabapentin [Neurontin*] 100 mg PO TID #90 cap 12/02/20 RX: Metoprolol Tartrate [Lopressor*] 25 mg PO BID #60 tab 12/02/20 RX: Metoprolol Succinate 1 tab PO DAILY 02/02/21 Azithromycin [Zithromax] 500 mg PO DAILY 4 Days #4 tablet 02/05/21 Hydrocodone Bit/Acetaminophen [Hydrocodon-Acetaminoph 7.5-325] 1 each PO TIDP PRN 7 Days #20 tablet 02/05/21 Sulfamethoxazole/Trimethoprim [Bactrim Ds Tablet] 1 each PO BID 5 Days #10 tablet 02/05/21 New Medications: Sulfamethoxazole/Trimethoprim [Bactrim Ds Tablet] 1 each PO BID 5 Days #10 tablet Hydrocodone Bit/Acetaminophen [Hydrocodon-Acetaminoph 7.5-325] 1 each PO TIDP PRN 7 Days #20 tablet PRN Reason: Pain Scale 5-7 (Moderate) Azithromycin [Zithromax] 500 mg PO DAILY 4 Days #4 tablet Diet: ADA Activity: Fall precautions Followup: Garo Us MD [ACTIVE - CAN ADMIT] - 02/09/21 1:00 pm Car Schrader [ACTIVE - CAN ADMIT] - 1-2 Weeks Time spent managing pt's care (in minutes): 35
[2021-02-06] MEDS ORDERED: VANCOMYCIN/NS 1 gm 1 GM/250 ML BAG IVPB SCH (18:00)
== END 2021-02-05 11:18 | disposition home or self-care (01) | DRG 603 ==
LOC: ER 18:45 → 2ND 23:44
PROVIDERS: ADMIT Internal Medicine; ATTEND Internal Medicine
DX: L03.114 Cellulitis of left upper limb (principal); L02.512 Cutaneous abscess of left hand; E11.52 Type 2 diabetes mellitus with diabetic peripheral angiopathy with gangrene; N17.9 Acute kidney failure, unspecified; I50.32 Chronic diastolic (congestive) heart failure; I13.0 Hypertensive heart and chronic kidney disease with heart failure and stage 1 through stage 4 chronic kidney disease, or unspecified chronic kidney disease; E44.0 Moderate protein-calorie malnutrition; N18.32 Chronic kidney disease, stage 3b; E11.22 Type 2 diabetes mellitus with diabetic chronic kidney disease; E11.42 Type 2 diabetes mellitus with diabetic polyneuropathy; E83.51 Hypocalcemia; D63.8 Anemia in other chronic diseases classified elsewhere; E86.1 Hypovolemia; N40.1 Benign prostatic hyperplasia with lower urinary tract symptoms; R33.9 Retention of urine, unspecified; Z88.0 Allergy status to penicillin; Z79.899 Other long term (current) drug therapy; Z79.4 Long term (current) use of insulin; Z68.20 Body mass index [BMI] 20.0-20.9, adult; Z87.891 Personal history of nicotine dependence; Z20.822 Contact with and (suspected) exposure to COVID-19
CPT/HCPCS: 36415; 73200; 76377; 80048; 80053; 80202; 81001; 82565; 82570; 82947; 83036; 83735; 83930; 83935; 84100; 84132; 84145; 84300; 84443; 84550; 85025; 87040; 87086; 87088; 93971; 96365; 96366; 96375; 97162; 99285; J0696; J1650; J2175; J2405; J2550; J3010; J3370; J7030; J7050; U0003

== ENCOUNTER 2021-02-22 18:59 | Emergency (ER) | payer OTHER ==
--- OUTSIDE RECORDS SUMMARY | 2021-02-22 19:05 | XMS REPORT | Continuity of Care Document ---
:1950 Author Organization [facility] t Address [address] [place] [address] Care Team Providers Name Role Phone Lynda Espinoza MD Attending Clinician Niranjan Jackson MD Attending Clinician Lynda ESPINOZA Attending Clinician Unavailable Narda MAXWLEL, Eric Attending Clinician Jose Ross MD Attending Clinician Lynda ESPINOZA Admitting Clinician Unavailable Payers Payer Name Policy Type Policy Effective Date Expiration Date Sour ce Number [facility] [id number] [facility] MGD CAREWELLCARE 00:00:00 - Medica l [id number] Center 21-Present Problems Condition Condition Condition Status Onset Resolution Last Treating Co mments Source Name Details Category Date Date Treatment Clinician Date 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 Alcohol intake 2020-10-04 2020-10-[address] [facility] - 00:00:00 00:00:00 of alcohol [facility] (finding) Tobacco use and 2020-10-04 2020-10-04 Never used [facility] exposure 00:00:00 00:00:00 [facility] Smoking Status Start Date Stop Date Source Current every day smoker 2020-10-04 00:00:00 [facility] Medications Ordered Filled Start Stop [...] [address] [facility] Hydrochloro Hydrochloro Yes Alfonzo [address] thiazide thiazide Mera in the Luke s - morning [facility] Pantoprazol Pantoprazol Yes Alfonzo [address] e Sodium e Sodium Mera [facility] Metoprolol Metoprolol Yes Alfonzo [address] Tartrate Tartrate Mera with food L [facility] Ferrous Ferrous Yes Alfonzo [address] Sulfate Sulfate Mera [facility] - [facility] Amlodipine Amlodipine Yes Alfonzo [address] Besylate Besylate [facility] Gabapentin Gabapentin Yes Alfonzo [address] [facility] Metformin Metformin Yes Alfonzo [address] HCl HCl Mera with a [facility] - meal [facility] Vital Signs Vital Name Observation Time Observation Value Comments Source Systolic blood 2020-10-03 19:17:00 111 mm[Hg] [facility] Diastolic blood 2020-10-03 19:17:00 61 mm[Hg] [facility] Heart rate 2020-10-03 19:17:00 75 /min [facility] Body temperature 2020-10-03 19:17:00 36.94 Latesha [facility] Respiratory rate 2020-10-03 19:17:00 17 /min [facility] Oxygen saturation in 2020-10-03 19:17:00 98 /min [facility] - Arterial blood by Medical Ce nter Pulse oximetry Body weight 2020-10-03 07:05:[address] [facility] BMI 2020-10-03 07:05:00 20.96 kg/m2 [facility] Body height 2020-09-30 05:22:[address] [facility] Procedures Procedure Date / Time Performed Performing Clinician Sour e POCT-GLUCOSE METER 2020-10-03 18:09:00 Alice Jackson [facility] HEPATITIS B PCR, 2020-10-03 15:49:[address] [facility] HEPATITIS C PCR, 2020-10-03 15:49:[address] [facility] POCT-GLUCOSE METER 2020-10-03 11:48:00 Renetta [facility] POCT-GLUCOSE METER 2020-10-03 08:34:00 [facility] & AUTO 2020-10-03 04:35:00 Nate Fields [facility] CBC (HEMOGRAM ONLY) 2020-10-03 04:35:00 Delmi Peguero [facility] BASIC METABOLIC PANEL (7) 2020-10-03 04:35:00 Delmi Peguero [facility] ACTIN (SMOOTH MUSCLE) 2020-10-03 04:35:00 [facility] ANT[facility], IGG [facility] ALPHA FETOPROTEIN (AFP), 2020-10-03 04:35:00 [facility] TUMOR MARKER [facility] [id number]\\, 2020-10-03 04:35:00 [facility] - SERUM [facility] ANTI-NUCLEAR ANTIBODY 2020-10-03 04:35:00 [facility] - (GAMAL) [facility] BILIRUBIN, DIRECT 2020-10-03 04:35:00 Wendy [facility] CERULOPLASMIN 2020-10-03 04:35:00 [facility] A ANTIBODY, IGG 2020-10-03 04:35:00 Wendy [facility] HEPATITIS B SURFACE 2020-10-03 04:35:00 Wendy, Kiah [facility] - ANTIBODY [facility] HEPATITIS B SURFACE 2020-10-03 04:35:00 [facility] ANTIGEN [facility] HEPATITIS B CORE 2020-10-03 04:35:00 Wendy, Kulwindermary annKaiser [facility] - ANTIBODY, TOTAL [facility] HEPATITIS C ANTIBODY 2020-10-03 04:35:00 DonnellSpringervilleveronica, DelfinaK[facility] MITOCHONDRIA M2 ANTIBODY 2020-10-03 04:35:00 [facility] - (IGG) [facility] PROTHROMBIN TIME/INR 2020-10-03 04:35:00 [facility] POCT-GLUCOSE METER 2020-10-02 21:19:00 Alice Jackson [facility] CBC W/PLT COUNT & AUTO 2020-10-02 17:29:00 Nate Fields [facility] VANCOMYCIN LEVEL, TROUGH 2020-10-02 17:29:00 Severo Martinez [facility] POCT-GLUCOSE METER 2020-10-02 17:24:00 Alice Jackson [facility] POCT-GLUCOSE METER 2020-10-02 11:21:00 Alice Jackson [facility] POCT-GLUCOSE METER 2020-10-02 08:03:00 Alice Jackson [facility] CBC W/PLT COUNT & AUTO 2020-10-02 03:39:00 Nate Fields [facility] COMPREHENSIVE METABOLIC 2020-10-02 03:39:[address] [facility] POCT-GLUCOSE METER 2020-10-01 21:23:00 Alice Jackson [facility] HEMOGLOBIN A1C 2020-10-01 14:34:00 GerardDelmi crum [facility] CBC W/PLT COUNT & AUTO 2020-10-01 12:08:[address] [facility] DIFFERENTIAL [facility] POCT-GLUCOSE METER 2020-10-01 10:58:00 Alice Jackson [facility] REPORT OF PROCEDURE - 2020-10-01 10:35:[address] [facility] ENDOSCOPY [facility] VANCOMYCIN LEVEL, RANDOM 2020-10-01 10:06:00 Meghann Grier [facility] TISSUE EXAM 2020-10-01 09:43:00 Narda [facility] UPPER ENDOSCOPY,BIOPSY 2020-10-01 09:14:00 Narda [facility] POCT-GLUCOSE METER 2020-10-01 08:23:00 Alice Jackson [facility] POCT-GLUCOSE METER 2020-10-01 05:11:00 Alexis Jacksonurad [facility] VITAMIN B12 AND FOLATE 2020-10-01 04:42:00 [facility]ON, TIBC, % SAT. 2020-10-01 04:42:00 Ford Espinoza [facility] (WITHOUT FERRITIN) [facility] 2020-10-01 04:42:00 Ford Espinoza [facility] CBC W/PLT COUNT & AUTO 2020-10-01 02:44:[address] [facility] DIFFERENTIAL [facility] SARS-COV2/RT-PCR ([facility] & 2020-10-01 02:44:00 Nate Fields Ma [facility] - REF LABS) [facility] COMPREHENSIVE METABOLIC 2020-10-01 02:44:[address] [facility] CBC W/PLT COUNT & AUTO 2020-09-30 20:01:[address] [facility] DIFFERENTIAL [facility] POCT-GLUCOSE METER 2020-09-30 20:00:00 Alice Jackson [facility] CBC (HEMOGRAM ONLY) 2020-09-30 15:15:00 Nate Fields [facility] POCT-GLUCOSE METER 2020-09-30 14:20:00 Alice Jackson [facility] US ABDOMEN LIMITED 2020-09-30 11:32:00 Ford Espinoza [facility] BLOOD CULTURE 2020-09-30 09:45:[address] [facility] CBC W/PLT COUNT & AUTO 2020-09-30 09:22:00 Planejose angel [facility] BLOOD CULTURE 2020-09-30 09:22:[address] [facility] LACTIC ACID, VENOUS 2020-09-30 09:22:00 [facility] URINALYSIS W/ REFLEX 2020-09-30 09:22:00 [facility] URINE CULTURE [facility] XR CHEST 1 VIEW PORTABLE 2020-09-30 08:39:[address] [facility] - / BEDSIDE [facility] HEMOGLOBIN A1C 2020-09-30 06:52:00 Malcolm Hernandez [facility] POCT-GLUCOSE METER 2020-09-30 06:27:00 Ford Espinoza [facility] PROTHROMBIN TIME/INR 2020-09-30 06:22:00 Malcolm Hernandez CH, I [facility] APTT 2020-09-30 06:22:00 Malcolm Hernandez [facility] COMPREHENSIVE METABOLIC 2020-09-30 06:22:00 Malcolm Hernandez [facility] REPORT OF PROCEDURE - 2020-09-30 00:00:00 Provider, Sherwin [facility] ENDOSCOPY SCAN Scanning [facility] Plan of Care Planned Activity Planned Date Details Comments Source Future Scheduled 2020-07-[address] [facility] - Test 00:00:00 (12+) [code = [facility] DEPRESSION SCREENING (12+)] Future Scheduled 2020-07-[address] [facility] 00:00:00 [facility]EL[facility] [code = Medicare IPPE (WELCOME TO [...] es - Test 00:00:00 malignant neoplasm of [facility] colon (procedure) [code = 025919001] Encounters Start End Encounter Admission Attending Care Care Encounter Source Date/Time Date/Time Type Type Clinicians Facility Department ID 2021-02-10 2021-02-10 Outpatient [facility] [id number] [facility] 2020-06-24 2020-06-24 Outpatient [facility] [id number] [facility] 2020-06-03 2020-06-03 [id number] 2020-05-25 2020-05-25 Outpatient [facility] [id number] [facility] 2020-05-13 2020-05-13 Outpatient [facility] [id number] [facility] 2020-04-29 2020-04-29 Outpatient [facility] [id number] [facility] 2020-04-15 2020-04-15 Outpatient [facility] [id number] [facility] 2020-04-15 2020-04-15 Outpatient [facility] [id number] [facility] 2020-04-07 2020-04-07 Outpatient [facility] [id number] [facility] 2020-03-26 2020-03-26 [facility] [id number] 09:10[facility]00 09:10:[address] [facility] Medicine Outpati ent Clinics 2019-09-21 2019-09-21 [facility] [id number] 21:47:00 21:47:00 t [facility] Medicine Outpati ent Clinics 2019-09-19 2019-09-19 [facility] [id number] 13:30:00 13:30:00 t [facility] Medicine Outpati ent Clinics 2019-09-10 2019-09-10 [facility] [id number] 10:15:00 10:15:00 t [facility] Medicine Outpati ent Clinics 2019-06-20 2019-06-20 [facility] [id number] 13:20:00 13:20:00 t [facility] Medicine Outpati ent Clinics 2019-03-21 2019-03-21 [facility] [id number] 11:20:00 11:20:00 t [facility] Medicine Outpati ent Clinics Results Test Description Test Time Test Comments Results Result Comments Source Actin (Smooth Muscle) Antibody, IgG 2020-10-07 01:25:00 Test Item Value Reference Range Interpretation Comme nts Anti-Smooth Muscle <20 See Note: U Reference Range:<20 Ab (test code = NEGATIVE> OR = 20 POSITIVE [id number]) Antibodies raad gnizing actin are the main compon entof smooth muscle antibodi es associated withautoimmune liver disease. Actin antibodie s arefound in approximately 7 5% of patients withautoimmune hepatitis (AIH) type 1, approxi pzmfke85% of patients with a utoimmune cholangitis,chitra roximately 30% of patients with p rimary biliarycirrhosi s, and approximately 2 % of healthy people.High giulia ues are closely correlated with AIH type 1. ELIANA (test code = Performing Lab ELIANA) EZ [facility] [employer] Elsa [address] [place] [address] Obdulia Ulrich MD, PhD, MARINA [facility] Center[facility]eruloplasmin2021-03-24 14:07:00 Test Item Value Reference Range Interpretation Comments Ceruloplasmin (test code 39 mg/dL 18-36 H = 20190906) ELIANA (test code = ELIANA) Performing Lab *GIULIA [facility], [address] [place] [phone] Nereida Rocha MD Lab Interpretation (test Abnormal code = 51818-3) [facility] Center[facility]ochond[facility] M2 Antibody (IgG)2020-10-06 13:29:00 Test Item Value Reference Range Interpretation Comments Mitochondria M2 Ab 20.3 U See Note: H Reference (test code = 8104083) Range: NEGATIVE: < OR = 20.0EQUIVOCAL: 20.1-24.9POSITI VE: > OR = 25.0 ELIANA (test code = ELIANA) Performing Lab EZ [facility] [address] [place] [address] Obdulia Ulrich MD, PhD, MARINA Lab Interpretation Abnormal (test code = 37629-5) [facility] ([facility]ipuncture) 2020-10-05 14:00:00 Test Item Value Reference Range Interpretation Comments Result (test code = No growth in 5 days 6463-4) [facility] [id number] 14:00:00 Test Item Value Reference Range Interpretation Comments CULTURE (BEAKER) (test No growth in 5 days code = 1095) BLOOD [id number] 11:00:00 Test Item Value Reference Range Interpretation Comments CULTURE (BEAKER) (test No growth in 5 days code = 1095) Hepatitis B PCR, [id number] 20:15:00 Test Item Value Reference Range Interpretation Comments HBV PCR, Quantitative HBV DNA not detected HBV DNA not (test code = 46594-0) detected ELIANA (test code = ELIANA) This test uses a Real-Time Polymerase Chain Reaction (RT-PCR) methodology and was performed using MADONNA AmpliPrep/MADONNA TaqMan HBV Test, v2.0 ([employer] Reportable range for this assay is 20 - 170,000,000 IU per mL (1.30 - 8.23 Log IU/mL). Lab Interpretation Normal (test code = 79765-6) [facility] PCR, [id number] 20:15:00 Test Item Value Reference Range Interpretation Comments HBV RESULT COMPONENT HBV DNA not detected HBV DNA not detected (BEAKER) (test code = 2701) This test uses a Real-Time Polymerase Chain Reaction (RT-PCR) methodology and was performed using [employer] AmpliPrep/M[employer]NA TaqMan HBV Test, v2.0 ([employer]Reportable range for this assay is 20 - 170,000,000 IU per mL (1.30 - 8.23 Log IU/mL).Hepatitis C PCR, [id number] 19:56:00 Test Item Value Reference Range Interpretation Comments HCV PCR, Quantitative 058833 See_Comment H [Auto mated (test code = 83050-9) messag e] The system which generated this result transmitted reference range : <15 IU/mL. The reference range was not used to interpret this result as normal/abnormal . ELIANA (test code = ELIANA) This test uses a Real-Time Polymerase Chain Reaction (RT-PCR) methodology and was performed using [employer] Ampliprep/MAD[employer]NA TaqMan HCV test kit version 2.0 ([employer] Reportable range for this assay is 15 - 100,000,000 IU per mL (1.18 - 8.00 Log IU/mL). Lab Interpretation Abnormal (test code = 61902-0) [facility] Center[facility]IS [facility] PCR, [id number] 19:56:00 Test Item Value Reference Range Interpretation Comments HCV NUMERIC RESULT (BEAKER) 965628 IU/mL <15 H (test code = 2700) This test uses a Real-Time Polymerase Chain Reaction (RT-PCR) methodology and was performed using [employer] Ampliprep/MADONNA TaqMan HCV test kit version 2.0 ([employer]).Reportable range for this assay is 15 - 100,000,000 IU per mL (1.18 - 8.00 Log IU/mL).Anti-Nuclear Antibody (GAMAL) 2020-10-04 12:41:00 Test Item Value Reference Range Interpretation Comments GAMAL (test code = 27330-8) Negative Negative ELIANA (test code = ELIANA) Test performed by IFA method. Lab Interpretation (test Normal code = 82796-6) [facility] CenterANTI-NUCLEAR ANTIBODY (GAMAL)2020-10-04 12:41:00 Test Item Value Reference Range Interpretation Comments ANTI-NUCLEAR ANTIBODY (GAMAL) (BEAKER) Negative Negative (test code = 418) Test performed by IFA method.POC-Glucose [id number] 18:23:00 Test Item Value Reference Range Interpretation Comments POC-Glucose Meter (test 127 mg/dL 70-110 H : TE STED AT [facility] code = 1538) [address] [facility], 770 30: Associate Director Qa/Techni min ID = [id number] for Igbalajobi, She neto Lab Interpretation (test Abnormal code = 41531-6) [facility] CenterPOCT-GLUCOSE [id number] 18:23:00 Test Item Value Reference Range Interpretation Comments POC-GLUCOSE METER 127 mg/dL 70-110 H : [facility] (BEAKER) (test code = [facility], 1538) [address]: Associate Director Qa/Techni min ID = [id number] for Igbalajobi, She neto POCT-GLUCOSE [id number] 12:00:00 Test Item Value Reference Range Interpretation Comments POC-GLUCOSE METER 78 mg/dL 70-110 : [facility] (test code = [facility], 1538) 267[address]: Associate Director Qa/Techni min ID = [id number] for Kassandra Woods Hepatitis B core antibody, [id number] 10:45:00 Test Item Value Reference Range Interpretation Comments Hep B Core Total Ab (test Reactive Nonreactive A code = 38220-2) ELIANA (test code = ELIANA) Associate Director Qa ID - DBOperator ID - DBOperator ID - DB Lab Interpretation (test Abnormal code = 26599-1) [facility] Center[facility]AT[facility]IS [facility] CORE ANTIBODY, [id number] 10:45:00 Test Item Value Reference Range Interpretation Comments HEPATITIS B CORE TOTAL ANTIBODY Reactive Nonreactive A (BEAKER) (test code = 497) Associate Director Qa ID - DBOperator ID - DBOperator ID - DBPOCT-GLUCOSE [id number] 08:50:00 Test Item Value Reference Range Interpretation Comments POC-GLUCOSE METER 83 mg/dL 70-110 : TESTED A T [facility] 6720 ([facility]) (test code = [facility], 1538) [address]: Associate Director Qa/Techni min ID = [id number] for Kassandra Woods [id number] 08:30:00 Test Item Value Reference Range Interpretation Comments A-1 Antitrypsin (test 189.40 mg/dL 90-200 code = 1825-9) ELIANA (test code = ELIANA) Associate Director Qa ID - DBOperator ID - DBOperator ID - DB Lab Interpretation (test Normal code = 48214-0) [facility] CenterALPHA-1-[id number] 08:30:00 Test Item Value Reference Range Interpretation Comments ALPHA-1 ANTITRYPSIN (BEAKER) 189.40 mg/dL 90.00-200.00 (test code = 502) Associate Director Qa ID - DBOperator ID - DBOperator ID - DBHepatitis A antibody, IgG 2020-10-03 07:01:00 Test Item Value Reference Range Interpretation Comments Hep A IgG (test code = Reactive Nonreactive A 43708-2) ELIANA (test code = ELIANA) Associate Director Qa ID - DB Lab Interpretation (test Abnormal code = 82628-2) [facility] Center[facility]AT[facility]IS A ANTIBODY, [id number] 07:01:00 Test Item Value Reference Range Interpretation Comments HEPATITIS A IGG ANTIBODY (BEAKER) Reactive Nonreactive A (test code = 2797) Associate Director Qa ID - DBHepatitis C [id number] 06:59:00 Test Item Value Reference Range Interpretation Comments Hepatitis C Ab (test code = Reactive Nonreactive A 18078-8) ELIANA (test code = ELIANA) Associate Director Qa ID - DB Lab Interpretation (test Abnormal code = 16309-4) [facility] CenterHEPAT[facility]IS C [id number] 06:59:00 Test Item Value Reference Range Interpretation Comments HEPATITIS C ANTIBODY (BEAKER) (test Reactive Nonreactive A code = 367) Associate Director Qa ID - DBBasic Metabolic [id number] 06:38:00 Test Item Value Reference Range Interpretation [...] (test code = 7.8 mg/dL 8.4-10.2 L 26050-1) EGFR (test code = 39 mL/min/1.73 [place] [address]-3) NOT ACCURATE CREATININE CLEARANCE IN PREDICTING GLOMERULAR FILTRATION RATE . ESTIMATED GFR I S NOT APPLICABLE FOR DIALYSIS PATIENTS. ELIANA (test code = ELIANA) Associate Director Qa ID - EDASI Lab Interpretation Abnormal (test code = 77355-8) [facility] CenterBilirubin, [id number] 06:38:00 Test Item Value Reference Range Interpretation Comments Bilirubin, Direct (test 0.2 mg/dL 0.1-0.5 code = 1967-7) ELIANA (test code = ELIANA) Associate Director Qa ID - EDASI Lab Interpretation (test Normal code = 69405-0) [facility] CenterBILIRUBIN, [id number] 06:38:00 Test Item Value Reference Range Interpretation Comments BILIRUBIN DIRECT (BEAKER) (test 0.2 mg/dL 0.1-0.5 code = 706) Associate Director Qa ID - EDASIBASIC METABOLIC [id number] 06:38:00 Test Item Value Reference Range Interpretation [...] S NOT APPLICABLE FOR DIALYSIS PATIEN TS. Associate Director Qa ID - EDASIHepatitis B surface [id number] 06:14:00 Test Item Value Reference Range Interpretation Comments Hep B S Ab (test code <8.0 See_Comment [Auto mated = 51671-7) message] The system which generated this result transmit altagracia reference range : <8.0 mIU/mL. e reference range was not used to interpret this result as normal/abnormal . ELIANA (test code = ELIANA) Associate Director Qa ID - DB Lab Interpretation Normal (test code = 56302-8) [facility] CenterHEPATITIS B SURFACE [id number] 06:14:00 Test Item Value Reference Range Interpretation Comments HEPATITIS B SURFACE ANTIBODY < mIU/mL <8.0 (BEAKER) (test code = 647) Associate Director Qa ID - DBHepatitis B surface [id number] 06:13:00 Test Item Value Reference Range Interpretation Comments HBsAg Screen (test code Nonreactive Nonreactive = 5195-3) ELIANA (test code = ELIANA) Specimen is considered negative for HBsAg. Lab Interpretation (test Normal code = 10818-9) [facility] CenterAlpha fetoprotein (AFP), tumor [id number] 06:13:00 Test Item Value Reference Range Interpretation Comments Alpha-Fetoprotein (test code 2.1 ng/mL <10.0 = 1834-1) ELIANA (test code = LEIANA) Associate Director Qa ID - DB Lab Interpretation (test Normal code = 77808-7) [facility] CenterHEPATITIS B SURFACE [id number] 06:13:00 Test Item Value Reference Range Interpretation Comments HEPATITIS B SURFACE ANTIGEN (2) Nonreactive Nonreactive (BEAKER) (test code = 2585) Specimen is considered negative for HBsAg.ALPHA FETOPROTEIN (AFP), TUMOR MARKER 2020-10-03 06:13:00 Test Item Value Reference Range Interpretation Comments ALPHA-FETOPROTEIN (BEAKER) (test 2.1 ng/mL <10.0 code = 1094) Associate Director Qa ID - DBProthrombin time/[id number] 05:06:00 Test Item Value Reference Interpretation Comments Range Protime (test code = 14.4 See_Comment H [Autom ated 5902-2) message] The system which generated this result transmitted reference range : 11.9 - 14.2 seconds. The reference range was not used to interpret this result as normal/abnormal . INR (test code = 1.16 See_Comment [Automated 6301-6) message] The system which generated this result [...] valves. Lab Interpretation Abnormal (test code = 23126-7) [id number] 05:06:00 Test Item Value Reference Range Interpretation Comments PROTIME (BEAKER) 14.4 seconds 11.9-14.2 H (test code = 759) INR (BEAKER) (test 1.16 See_Comment [Automat ed message] code = 370) The system [employer] generated this result transmitted ref erence range: [...] 8.8 See_Comment [A utomated message] The system [employer] generated this result transmitted ref erence range: 3.5 - 10 .5 K/L. The refe rence range was not u sed to interpret this result as normal/abnor mal. RBC (test code = 789-8) 2.56 See_Comment L [Au tomated message] The system [employer] generated this result transmitted ref erence range: 4.63 - 6 .08 M/L. The refe rence range was not u sed to interpret this result as normal/abnor mal. MCHC (test code = 786-4) 31.8 See_Comment L [A utomated message] The system [employer] generated this result transmitted ref erence range: [...] See_Comment [Aut omated message] 777-3) The system [employer] generated this result transmitted ref erence range: 150 - 45 0 K/CU MM. The referen ce range was not u sed to interpret this result as normal/abnor mal. MPV (test code = 10.2 fL 9.4-12.4 61750-0) nRBC (test code = 413) 0 See_Comment [Aut omated message] The system [employer] generated this result transmitted ref erence range: 0 - 0 /1 00 WBC. The refere nce range was not u sed to interpret this result as normal/abnor mal. Lab Interpretation (test Abnormal code = 84047-6) [facility], [place] with platelet count + automated [id number] 04:58:00 Test Item Value Reference Range Interpretation Comments WBC (test code = 6690-2) 8.8 See_Comment [A utomated message] The system [employer] generated this result transmitted ref erence range: 3.5 - 10 .5 K/L. The refe rence range was not u sed to interpret this result as normal/abnor mal. RBC (test code = 789-8) 2.56 See_Comment L [Au tomated message] The system [employer] generated this result transmitted ref erence range: 4.63 - 6 .08 M/L. The refe rence range was not u sed to interpret this result as normal/abnor mal. MCHC (test code = 786-4) 31.8 See_Comment L [A utomated message] The system [employer] generated this result transmitted ref erence range: [...] code = 172 See_Comment [Aut omated message] 647-3) The system [employer] generated this result transmitted ref erence range: 150 - 45 0 K/CU MM. The referen ce range was not u sed to interpret this result as normal/abnor mal. MPV (test code = 10.2 fL 9.4-12.4 51855-0) nRBC (test code = 413) 0 See_Comment [Aut omated message] The system [employer] generated this result transmitted ref erence range: [...] H [Aut omated message] 670) The system [employer] generated this result transmitted ref erence range: 1.78 - 5 .38 K/L. The refe rence range was not u sed to interpret this result as normal/abnor mal. # Lymphs (test code = 0.86 See_Comment L [Auto mated message] 414) The system [employer] generated this result transmitted ref erence range: 1.32 - 3 .57 K/L. The refe rence range was not u sed to interpret this result as normal/abnor mal. # Monos (test code = 0.72 See_Comment [Autom ated message] 415) The system [employer] generated this result transmitted ref erence range: 0.30 - 0 .82 K/L. The refe rence range was not u sed to interpret this result as normal/abnor mal. # Eos (test code = 416) 0.12 See_Comment [Au tomated message] The system [employer] generated this result transmitted ref erence range: 0.04 - 0 .54 K/L. The refe rence range was not u sed to interpret this result as normal/abnor mal. # Baso (test code = 417) 0.02 See_Comment [A utomated message] The system [employer] generated this result transmitted ref erence range: 0.01 - 0 .08 K/L. The refe rence range was not u sed to interpret this result as normal/abnor mal. Immature 1 % 0-1 Granulocytes-Relative (test code = 2801) Lab Interpretation (test Abnormal code = 68111-0) [facility] [place] W/PLT COUNT & AUTO [id number] 04:58:00 Test Item Value Reference Range Interpretation [...] 0-0 (BEAKER) (test code = 413) POCT-GLUCOSE [id number] 21:32:00 Test Item Value Reference Range Interpretation Comments POC-GLUCOSE METER 128 mg/dL 70-110 H : TESTED A T [facility] 6720 (BEAKER) (test code = [place], 1538) [address]: Associate Director Qa/Techni min ID = [id number] for Lien Mansfield Vancomycin kimmie, [id number] 18:09:00 Test Item Value Reference Range Interpretation Comments Vancomycin Tr (test code 6.3 ug/mL 10-20 L = 4092-3) ELIANA (test code = ELIANA) Associate Director Qa ID - DBIf vancomycin trough level > 20 mcg/mL, hold next vancomycin dose, and contact MD and pharmacist. Lab Interpretation (test Abnormal code = 02097-8) [facility], [id number] 18:09:00 Test Item Value Reference Range Interpretation Comments VANCOMYCIN TROUGH (BEAKER) (test 6.3 ug/mL 10.0-20.0 L code = 522) Associate Director Qa ID - DBIf vancomycin trough level > [...] PERCENT (BEAKER) (test code = 2801) POCT-GLUCOSE [id number] 17:36:00 Test Item Value Reference Range Interpretation Comments POC-GLUCOSE METER 124 mg/dL 70-110 H : TESTED A T [facility] 6720 (BEAKER) (test code = DEVON Serrato [facility], 1538) [address]: Associate Director Qa/Techni min ID = [id number] for Jaswinder Jefferson Tissue [id number] 14:24:00 Test Item Value Reference Range Interpretation Comments Case Report (test code Surgical Pathology = 104) Report Case: [id number] Authorizing Provider: Sarkis Laboy, Collected: 10/01/2020 09:43 AM Ordering Location: [place] [address] ccu Received: 10/01/2020 01:48 PM Pathologist: Pa Peters MD Specimens: A) - Biopsy, Gastric, random biopsy B) - Gastric, gastric erythema biopsy DIAGNOSIS (test code = w4tprCGpDDIce6gxEYFfgL 3220) FuZzEwMzNcZnRuYmpcdWMx IHtccnRmMVxlcGljOTIwMl sqmjBoRUAhdMVlN8Kfovki ILcfHN8uRF8ndUzvqPEvxP RvTNZwRxLph0akp964zULq b2dwLKFNawlzeSo8gQyqZ5 7oe3W3NyybA10rnXOsUAtq bGFpblxmczIwIEEuIFNUT0 0WW0bwZJHQTcAUADBJXxNW J4LETVqHMQ4DN28IIAahPb mDBXGAPZQ7OKWowys6GOQj BGHDLoVRZHozZOTKD3YLVS dJVEggTUlMRCBDSFJPTklD RUvNKQPYJBMNUTuCZ6GRNF TNNfDYHvXaKi3OHLwbNV3F QZABNJ7YMGCFLLZHQYbFC0 qCLVWmcck5UHYbTNNLGXvK IAyLJD5PX59GGRNVZBIXBT 2MYHZyG2jHV97GVhKXTePK VElWRSBHQVNUUklUSVMgV0 zWUNQVO1RWJMRJT0IJAlgN MYvrIPAlmFXgRC1oJ4RCDB bTUbVOSIADDbifZ8EXLT0j EmLBWVOSYnHpLx6YJQxcFH OYZG8MHFBULYvFGO5UW8DF RNUIU2leBVNhtYOwVB3pIp VBLVUTEtVyGh3DVDDEL8CG MFJUFEGFSyTWLUUYLE9RAW XgyHQnBNTexpHKLkTAYC8D QUNILCBFUllUSEVNQSwgRU 3DT7KQX5DVZhMNBTKXS3TM XMIPU1XTLQDVOtlnLMZavB NsYE9oS2vCSpWGFtTZOEBZ T7TqO3kLGZVNCDkDLBWDFv 9BJIDiRO1EX8WAIqNvA0FF VFJJVElTIEFORCBWRVJZIE BJT9HBCEEGYXoKTFNWJYTm ciAgICAgICAgICAgICAgLS PCDP3BPtGsYDUNDRHKWVDC M93NRJZIEY5PFROTLHFILD JUTFkgREVOVURFRCBXUElU ZRGMRCOJAJKivvt1LSUfWI BXQVJUSElOIFNUQVJSWSBT VEFJTiBORUdBVElWRSBGT1 DxUO0rHHsSL2BPTJlUZ2Rd S4TGYX3ZZ36OHUUwtzd7HB CuZAVMFNuFHDkAEZRWL6Th HX2ADAWSIO0GLNKFQVJTFW gGA3pVPOGZCYNMBYIIVUAb N3QfU2DWY9kJS47WUTYjso 32EIL7SlCxe5M3PYE4HNPu QXXpd5dlAZTtsSNoJfBeSr NcZnRuYmpcdWMxXGRlZmYw v4pav696xMExu7rnBFNhNr G6vIArJFJgeBUoI176HOJp RCxrh3itk5CiFCGplVYja1 D5SJLWjxbioNg9aSzmN93v v2V6VybgO7ptUQKjFNHfN2 OjQV7fTTXaInc2WCB6LNS4 CDTmPVXsM2UrQE0iPPQtjA XxPBr9a7fmeFhgTMYoYEG8 g3ozWDtojkNbJF4whq2fuP k9r4zedeQiHOHuOYNeuHZP UMUjJ4WtbOniEn6mpZq4xP jjUduaNBO3Gxf0EO3bpw47 svz1cCezAXFwlgglYbM5GK umBPJpalaqKDm0UEasBAGy qNY2RZWxuMQmG5PmPYEmCN 5tlnp1BQF3RPfdNJXnLmZ8 NDBcaGVhZGVyeTcyMFxmb2 28LHR2OcPnQJ1pO0Fsj0A2 yD2czRNgHIOdvZKqGxSeTW Kavp6fsUOzPEhgs3XoBVQ9 auV8eVYenMNqSVLqDlL3LT ywTA1dlt24TXTwWHM8cy3d bGNccGdicmRyaGVhZFxwZ2 JjTGVvn047OPBqP6DcXXBb r2C2hfQqHdMqRZNxhZB9qd N8MPYdMA2ssjysv1eeOXtd HWrgTVQfrxZ2vrI8XWBsxT AvA1IatU0uVOTmXY3mlleo o6waKWO8RVfdRRWzRJR0Sj SkKQOzk7Uibkb3YhMfv0Im xZQvQLqaR56dz704VBWnun EgQ9wyjEBxrgvmgOYqxecg XFoegqK1WFJiEVusdkfzYO XgDFjuG7ydZsVgSBZgsFpm GWimg0FeTQTyNLQzUlDbvE LqKNKlPmq3EUXzwCTqYPTb YuReZ4aindjeNdVDFAWwc2 ocF3lweQFMnCXpR4RrFSoz wiUpKMtqLEluDPUnMGS5VD 85LXzgEUXaea70 CPT Code(s) (test code l8xbjMEvYPJkfMF9IhXbFE = 3357) Nxd5gbe2MdhMByjWWdDRmg xSKqlsIbox21hXN4vC10SI 2rFOLuFjQ7XGXlwoR7Tip6 ZBFkJRYlaKJrM369w3ieo4 ytcvAwyVE4nLluBDUnJUVg YWluXGZzMjAgODgzMDUgWC CfIUQ2VVHcKfGICxacTMR8 CLINICAL HISTORY (test m3qrnSKlLVTvpOM1TgKnCL code = 3356) Lqe7axd3AmoBJvsOIyAIlu aKCbneXttc26iZT4dB51BV 9xUCWiSiG7QBRdryL7Yhc6 KEPvCXZaeLJcF036i3ubc8 spzdBxzWT9dQdaCKShDYUx PHpzQVPbQcFvyANeNO6vSK Bhcn0= SPECIMEN SOURCE (test h0fjhRWbDDVdsAH4FyOpEK code = 3377) Vzb3ugj2CjnCLlwNDhKHwq mHGwgcFrhy80fEC6hT13KD 1eDVMkXhE9TPWeicP9Jqy9 IOIeKSXlhABoG173n5rqx8 zjrdQxqMU0fEypZFUdCCVk RQkyUVLmQbBvUZ4oFUahz2 GnbARecVaeOVVJWuHhV8Zk bLOhO3qcOEC5 GROSS DESCRIPTION (test o9yrtEMuNQTpkUWoDeCeXX code = 3366) PqBVTec9ivTXGpbDTwAsRh MzNcZnRuYmpcdWMxXGRlZm Zsn9klu813qXCgn5lkRXSr ToV6oHBlIWKygZNtY207n3 glc4uhbvVipQL7AOXnSYV9 RSxbzkDbrdX1FJpttLUsBx L9AIdmvgGvSKbtxpAxviKu Pzz1EKPxJ509QCH7eUhjq9 buVRS9MNJuNOVoCxIrJv5m mTMxJ082KQXdYSBFVGSsfM g2ACJyyhXuulJyeJWDz361 S492l8ssOKEnjpZbpTiWtp zhq3huG738JJKxcOZfktTi YeFrPTDnwZVlwKO4EUXsVD 4ovusyQyMbGL9twnljGzIj FF5bdhz3WsDeBZ3krxwpKy YjLNcmZOTghhjuUROkt6Xg wuwyPV0sO1Jwy7T2bJ8mlI IwKXNvbWKtFtGcAQWpzc2g qZVnYUruj8UrFAL3qgQ6yK AzcNYwESXiJC05Xfoqm7Fm SjsfDGO1OCIuwdHwj5Okx3 zaUrJrdgWiB9amJ5FuBEGl CKZtBTDvEbZyeaEkb1Hko8 WeoMHtgNd5r2wuGKOrOMVa iXtod3lnOMJ7RYHrH4O5eC Zux7arXQpsIGAasXP5wtqu LGqlWRSgtbM2hyelVSbzUN VmdJR6chjgLGxzLJQaQgL8 xmdjRZblYZCrYUL4ZFbic3 72VQG5CJxnNmqmKVfkCYFi bmNvbnRccGduZGVjXHBsYW luXHBsYWluXGYwXGZzMjRc gWocsNpzvS1pAjKhQeZnIK kpDH6jKCZkX3xfqTYwJLUv YXQjJ2jrPeOnrI4sxYnkNQ xmczIwIEEuICBSZWNlaXZl RNAjonWue8XvMLxppjTlNR JwzSYzIKZvPXYwXEKeZL87 L9JvqaKnIHbbJBNxSWUadZ 7uGH29oVEvtgYpgqReBvxu y2MwsRRfRmnjvWC0UeWjyv KhUCB3SA3rsFjepmQ4dXEt zYXfOjIwA98kwqWwBU9rSK E0fzljNeQ1oYB8skOiHqRf R40fpW4pU5BdGOLdf5UqUJ zwCA7sxS2lBBcjeJAdKDEs OTCcvXy1UDWfNXCdqhXzn8 CckTd0jNQcETewJGQatK7o dL3dDSLuISAuottnYNIfEy 5zTJQqA3WbvnVsHRkcGDGj pf9ohJqxUDrrEhRsQKQnmP mbOBWmfGwvhuRcqlZsYY7e EHUrA8Zlc2Tkg96ripGwAy YyWMNyTGScW1IlnRMsMvXv aXMgYSAwLjIgeCAwLjIgeC EyFsInE94diYZcPQPscdeq qYwcx9ZhFSZcITjkUV00BD doaWNoIGlzIGZpbHRlcmVk SAGyJQIppIArsMO9UNSmsY 0dsL99myJxhzIKNF6mzCNt QBKfewOTkTqcurGYiiv9UF xsZXMsIFBBLCBIVCAoQVND UClccGFyfQ== MICROSCOPIC DESCRIPTION n3ohwYZgLCUynZN1MdCfWG (test code = 3371) Ngz4att7KifAEmoDIvHXof xKWccqSrst10uAZ9lJ88AC 1dSPOcArW6DPKerlS3Rmg9 NTHoKHTvkGVxE490z7nfr2 walpAnlNE4sCgvKCRuTEMb WBvfDPFjZaPfYLAlCg5kwP VkLlxwYXJ9 SPECIAL STUDIES (test c9ojyJArDCVtb9kvGIHkgU code = 3376) FuZzEwMzNcZnRuYmpcdWMx ZEvunoSsPYzul9GrP4IyEo AwMFxhbnNpXGRlZmxhbmcx TYVzTGT4djKlLYYsFHvhXK MhFJehKt9fiYBwaNmyNzCt JQMyy5vrpiIGefnesBp7f1 fmKXQqLrN7cEPzUOrcC1aq qiFvtPIgT9CyaKQqrBk5t0 rpGpAaWyH3yXOhWMscQ2nx hzJlgRIcUJJwYTx9yQ97WM IioC6cyPWrEIqpdwOfTgR2 JLbcKXAzJyL8GRVwhWMhSY IwV2vcXUEaGZfrTOJdZWhv xLWsODS4zDwzm3S9hVVfdT YkbEfyZeUsQjFrDxHOq6Ql JHk9yPakV9FsMURrVuZ0mS QgUGFyYWdyYXBoIEZvbnQ7 fDbditHyl21akKRpBOMqPQ PaWkOriBggLUTfCUNFd8Pl cCjtJLX0tFm9aMiaSiwtJY E8Cua4UY6suy18wkv6aKhz ZCZqxqxfAfM7XZvnNKXmlu tnGFl5IHceDXSalWA4BUGn wJHeI2SzSNBpJV5megs4JW T5GRgkNSZrOlA1DNHpsUJw ZTZpmJxmGNwzz669OSA3Ob WcDQ4bS4Qnt7X1mZ4uwPQv SZYpbDElOgVrZETayp3zoJ EzHGfvn8SuQRX5adP2fEYh gCJeCQVuWU87Pihxh9RqRh dds2NgI99dgNS7LMxmc9kn OJ0xMjI3hzQcTMavq9yfbM 1zXdQ8ZMwoKI5jXB3lGKIl xA6zzmmeGINyEmExjopqGF YeyOoqrsSqEd2zaJnmUKG2 CSzoV8yurD1xViC0NYejY0 gplQ3jKHn7GUplnHJ7SBXw cO6wGG7pipayr0ucHCsaUD spCFMvzmL1uyO1JLDthUIv J9NwiN3zRSSxIU2zaqfns1 wnFSS3HPktBOKqLKL7IwHp AGVpv6Kpbub7QhZzk3QkkM LnBHzaU38ew083EYQklaLq G6olmVQsgwsofISwaobvLO byzwM7ZHVjBLVaUKdqDQVr XGZzMjJcbGFuZzEwMzNcaG ljaFxmMVxkYmNoXGYxXGxv C9ylAhQdK1WuWYKoApDoHH wxCOyrrWOupYVkgGX6zE7z HV6oLLIuqJDlF4IoZKZzps OfhTCpAQR1yIAvrXRiCF5e UCjkzGKkz5yrt7RsJ8vdrN ujrHY1UF7hLBVcOMFcTYva f1OkuL5lOjawcAApbjtwPJ xmczIyXGxhbmcxMDMzXGhp T2ckFeLxWEVygNapLYzem1 NoXGYxXGNmMlxmczIyXGx0 cmNoXHBhclxwYXJccGxhaW 3dIoLmEjGpMdbjFC5kXMTb W3utiVJuPNXbWELsI7szOp XqbW3qpAkfCKphUuKeBcPq UzQNj023pr5iYVMljMDkzd WPbTUfdU9nSXlrFYplUGah yBAvFYsse5mgYJFzs4c5pV XsZCSyiaUmi7kuJQixhaCy UOSdqEEqwGYcGPOxd07vIA lazKnklNhiTTSqg6BcrZym o2WnDtQrLQkbv9BxJ15crD JvbCBzbGlkZXMgcnVuIGFs z64de3qnWHAxNrV7xJJubT T6yJAdvUUyk9ZexArlFSNx b1xcFEVksm4zghrqoBYrq9 AlsW3qrivsKMscjKPgukBk QOBbm6z1pDPvEHXxEJOsHL mmjJx7JJCkw798dz7meeM1 zAQlVCX3UDfnZBXsUXCskx UgZXZhbHVhdGVkXHBsYWlu XGYxXGZzMjJcbGFuZzEwMz NcaGljaFxmMVxkYmNoXGYx JZvzL2dvTsLlG5FbFPQdHr OzlCWcV5wymGUcUYZoONqh XGYxXGZzMjJcbGFuZzEwMz NcaGljaFxmMVxkYmNoXGYx MLcaY9qaPtSaZ5HmFALyDz IgIFxwbGFpblxmMVxmczIy MFgfjcsqRCPlMSuiT6mxCa LrDQCfgMbiPUrki1NmGODv UEPtJlkbwgQeJBb4swMpTA BhclxwbGFpblxmMVxmczIy QSssyhpzKANcOQhcP0wiWz LiSXZezLqaSXzqg3SoQDNz XGNmMlxmczIyIEltbXVub2 kfa7DpL1cwsVtmnVG5FRYn P4hfpOVvzMD0OHQ2rZ0qCY uhixKwIBDex2RbFMUkSJLv RkQ6cM2mAAN5EoEJmBzrHW BsYWluXGYxXGZzMjJcbGFu ZzEwMzNcaGljaFxmMVxkYm FsJOQcCZwrY9evUyDjU9Fe NCXlMgIbqCzpZVyaTYp9Ke xwbGFpblxmMVxmczIyXGxh yhtfUGWrIAkfX9mjEcJtHD KpeMxsXAjuo2BoIQJbSEQr MlxmczIyIHMgTWVkaWNhbC TTGY92OTHiNIGtrUhorQ1j gUNGIVMqpaA7g6K2FDbjFV OwWOu4KHvmxiTnBKBbrQ0o ASAeFC8aCBa5mqFxZHNyg4 JcDS3wVVSvcPDhCIG9UKMi u9VtE8Zvz8ImPPMwJCOqum 1uuvPeIoNOgEDwKXNmnw58 YNDtSF5nS6vwHXFbGJTcmr YqgDUna6QkAMTnlUG5kLDt PX7YKuIGn16pNJSoFMVWey PjBJNuhVinbFN2ypI4wP4c LiBUaGUgRkRBIGhhcyBkZX Ldsw3pbzGrBKBvINKon0Ny uMFsyGWdekIvT2Gkd1XgDO Cpld77MIohnTVomj80MM1j C0Ucq3IhqD2zJDuiJTDse8 WhyFMjbNRmSREbz1OkF2qu urfxHBybxHTagR6cXKMsTG r7PSJnd5EoPXVwd0WzUuQk roWcDIEqBSUmXMHtjM69UH N3vWcweDjclmKoCG7aIFOe bdTuPRIeXUNojY3rQKjgbp HeGXAicyD2m3Y3EZtiENDf qiXySogxIZR7ktJiupY2kU StA9kyjdfuBIhsEYJnm8Bs iA8drYKLxEOhn9WqaRHmdR BYbNPqOD0utpVxIF4qEKI2 ODggKENMSUEtODgpIGFzIH Q8OYokAbuhXCZ4zhZiYWFd x1HcLTxnP8bsI72dsWlxpS z8iWWchUbvmURjrPHnAWDz vcQ6a3N1URJhd5OyjoroTZ BsYWluXGYyXGZzMjJcbGFu ZzEwMzNcaGljaFxmMlxkYm IeBKRdTMxwR3xzZbMbTlCi CfdaMND9sB== Gross assessment was [facility] performed at ([facility], = 2777) Department of Pathology, [address] [place] [address], Technical component was [facility] performed at ([facility], = 2778) Department of Pathology, [address] [place] [address], Professional component [facility] was performed at ([facility], code = 2779) Department of Pathology, [address] [place] [address], [facility] Center[facility] [id number] 14:24:00Surgical Pathology Report Case: [id number] Authorizing Provider: Sarkis Laboy, Collected: 10/01/2020 09:43 AM OrderingLocation: [place] [address] ccu Received: 10/01/2020 01:48 PM Pathologist: Pa [...] OR CARCINOMA Signing Pathologist Direct Phone Line: [phone] signed by Pa Peters MD on 10/02/2020 at 2:24 [id number] X [id number]. GastricB. GastricA. Received in formalin labeled the [...] evaluated Immunohistochemistry technical testing was performed at [facility], Pathology Laboratory where it was developed [...] qualified to perform high complexity clinical laboratory testing.[facility], Department of Pathology, [address] [place] [address], [facility], [address] [place] [address], [facility], Department of Pathology, [address] [place] [address], BSHS-GLUCOSE [id number] 11:33:00 Test Item Value Reference Range Interpretation Comments POC-GLUCOSE METER 124 mg/dL 70-110 H : TESTED A T [facility] 6720 (EWNDI) (test code = CARRILLOSON Serrato [facility], 1538) [address]: Associate Director Qa/Techni min ID = [id number] for Jaswinder Jefferson POCT-GLUCOSE [id number] 08:15:00 Test Item Value Reference Range Interpretation Comments POC-GLUCOSE METER 106 mg/dL 70-110 : TESTED Parveen Hewitt [facility] 6720 (WENDI) (test code = [place], 1538) [address]: Associate Director Qa/Techni min ID = [id number] for Jaswinder Jefferson Comprehensive metabolic [id number] 05:17:00 Test Item Value Reference Range Interpretation Comments Protein, Total (test 6.1 See_Comment [Autom ated code = 2885-2) message] The system which generated this result transmit altagracia reference range : 6.0 - 8.3 gm/dL . The reference range was not u sed to interpret th is result as normal/abnormal . Albumin (test code = 2.6 g/dL 3.5-5 L 19689-4) Alkaline Phosphatase 85 U/L 40-150 (test code [...] (test code = 7.7 mg/dL 8.4-10.2 L 98881-6) AST (test code = 17 U/L 5-34 1920-8) ALT (test code = 9 U/L 6-55 1742-6) EGFR (test code = 35 mL/min/1.73 [place] [address]-3) NOT ACCURATE CREATININE CLEARANCE IN PREDICTING GLOMERULAR FILTRATION RATE . ESTIMATED GFR I S NOT APPLICABLE FOR DIALYSIS PATIEN TS. ELIANA (test code = ELIANA) Associate Director Qa ID - EDASI Lab Interpretation Abnormal (test code = 21786-6) [facility] [id number] 05:17:00 Test Item Value Reference Range Interpretation [...] S NOT APPLICABLE FOR DIALYSIS PATIEN TS. Associate Director Qa ID - EDASICBC W/PLT COUNT & AUTO [id number] 04:32:00 Test Item Value Reference Range Interpretation [...] PERCENT (BEAKER) (test code = 2801) POCT-GLUCOSE [id number] 21:36:00 Test Item Value Reference Range Interpretation Comments POC-GLUCOSE METER 146 mg/dL 70-110 H : TESTED A T [facility] [address] (BEAKER) (test code = [place], 1538) [address]: Associate Director Qa/Techni min ID = [id number] for Johana Vasquez Hemoglobin [id number] 15:28:00 Test Item Value Reference Range Interpretation Comments Hemoglobin A1C (test code = 4548-4) 5.6 % 4.3-6.1 Lab Interpretation (test code = Normal 04551-4) [facility] [id number] 15:28:00 Test Item Value Reference Range Interpretation Comments HEMOGLOBIN A1C (BEAKER) (test code = 5.6 % 4.3-6.1 368) CBC W/PLT COUNT & AUTO [id number] 12:44:00 Test Item Value Reference Range Interpretation [...] PERCENT (BEAKER) (test code = 2801) POCT-GLUCOSE [id number] 11:11:00 Test Item Value Reference Range Interpretation Comments POC-GLUCOSE METER 125 mg/dL 70-110 H : TESTED A T [facility] 67[address] (BEAKER) (test code = [employer] [facility], 1538) [address]: Associate Director Qa/Techni min ID = [id number] for BE LL, BEAULA Vancomycin level, [id number] 10:39:00 Test Item Value Reference Range Interpretation Comments Vancomycin Rm (test 4.8 ug/mL code = 76773-6) ELIANA (test code = Reference Range: No ELIANA) NormalsOperator ID - COLBY Rodriguez [facility] CenterVANCOMYCIN LEVEL, [id number] 10:39:00 Test Item Value Reference Range Interpretation Comments VANCOMYCIN RANDOM (BEAKER) (test 4.8 ug/mL code = 523) Reference Range: No NormalsOperator ID - COLBY CPOCT-GLUCOSE [id number] 08:38:00 Test Item Value Reference Range Interpretation Comments POC-GLUCOSE METER 119 mg/dL 70-110 H : TESTED A T [facility] 6720 (BEAKER) (test code = [employer] [place], 1538) [address]: Associate Director Qa/Techni min ID = [id number] for BE LL, BEAULA SARS-CoV2/RT-PCR (Asymptomatic ONLY)2020-10-01 08:13:00 Test Item Value Reference Range Interpretation Comments SARS-COV2/RT-PCR Negative Not Detected, (test code = Negative, See 02323-9) external report for linked test SARS-COV-2 [facility] PERFORMING LAB (test code = 30697-2) ELIANA (test code = Negative result for [...] of the Act. Fact Sheet for Healthcare Providers:https://www.[employer].Hitch/sites/default/f dorys/product/documents/F act_Sheet_HC_Providers_L atl_NFMR-IfG-4.pdf Fact Sheet for Healthcare Patients:https://www.Porch del.com/sites/default/fi les/product/documents/Fa ct_Sheet_Patients_Lyra_S ARS-CoV-2.pdf Performing Laboratory:[facility] [place] [address] [facility])2020-10-01 08:13:00 Test Item Value Reference Range Interpretation Comments SARS-COV2/RT-PCR (test Negative Not Detected, Negative, code = 3843387) See external report for linked test SARS-COV-2 PERFORMING LAB [facility] (test code = 5446051) Negative result for this test determines that [...] 564(g) of the Act.Fact Sheet for Healthcare Providers:https://www.[employer].Hitch/sites/default/files/product/documents/Fact_Shee b_YX_Jxqeumseo_Fryt_ADIY-JcP-1.pdfFact Sheet for Healthcare Patients:https://www.[employer].Hitch/sites/default/files/product/ documents/Llxl_Uwcve_Tzwcyedw_Deks_LBJK-FyR-1.pdfPerforming Laboratory:[facility], [place] [id number] 06:20:00 Test Item Value Reference Range Interpretation Comments Ferritin (test code = 61.09 ng/mL 5-275 2276-4) ELIANA (test code = ELIANA) Associate Director Qa ID - STEPHENIEEAGLE L Lab Interpretation (test Normal code = 05966-4) [facility] CenterVitamin B12 and [id number] 06:20:00 Test Item Value Reference Range Interpretation Comments Vitamin B12 (test 267 pg/mL 213-816 code = 2132-9) Folate (test code = 11.30 ng/mL See_Comment [Automa altagracia 2284-8) message] The system which generated this result transmit altagracia reference range : >=7.00. The reference range was not used to interpret this result as normal/abnormal . ELIANA (test code = ELIANA) Associate Director Qa ID - ASHLEIGH L Lab Interpretation Normal (test code = 15623-0) [facility] CenterFERRITIN2021-03-19 06:20:00 Test Item Value Reference Range Interpretation Comments FERRITIN (BEAKER) (test code = 61.09 ng/mL 5.00-275.00 361) Associate Director Qa ID - STEPHENIEEAGLE LVITAMIN B12 AND [id number] 06:20:00 Test Item Value Reference Range Interpretation Comments VITAMIN B12 267 pg/mL 213-816 (BEAKER) (test code = 774) FOLATE (BEAKER) 11.30 ng/mL See_Comment [Automated message] (test code = 362) The system which generated this result transmitted ref erence range: >=7.00. The reference range was not used to interpr et this result as normal/abnormal . Associate Director Qa ID - ASHLEIGH Vazquez, TIBC, % sat. (without ferritin)2020-10-01 06:04:00 Test Item Value Reference Range Interpretation Comments Iron (test code = 2498-4) 17.0 ug/dL 40-160 L TIBC (test code = 2500-7) 323 ug/dL 250-450 Iron % Saturation (test 5 % 20-55 L code = 2502-3) ELIANA (test code = ELIANA) Associate Director Qa ID - ASHLEIGH L Lab Interpretation (test Abnormal code = 77748-5) [facility] CenterIRON, TIBC, % SAT. (WITHOUT FERRITIN)2020-10-01 06:04:00 Test Item Value Reference Range Interpretation Comments IRON (BEAKER) (test code = 547) 17.0 ug/dL 40.0-160.0 L TOTAL IRON BINDING CAPACITY 323 ug/dL 250-450 (BEAKER) (test code = 769) IRON % SATURATION (2) (BEAKER) 5 % 20-55 L (test code = 2590) Associate Director Qa ID - PIAYA LPOCT-GLUCOSE [id number] 05:23:00 Test Item Value Reference Range Interpretation Comments POC-GLUCOSE METER 116 mg/dL 70-110 H : [facility] ([facility] (test code [facility], = 1538) [address]: Associate Director Qa/Techni min ID = [id number] for ELIDALela YESSENIA JUNIE CBC W/PLT COUNT & AUTO [id number] 03:26:00 Test Item Value Reference Range Interpretation [...] (BEAKER) (test code = 2801) COMPREHENSIVE METABOLIC [id number] 03:22:00 Test Item Value Reference Range Interpretation [...] S NOT APPLICABLE FOR DIALYSIS PATIEN TS. Associate Director Qa ID - DBCBC W/PLT COUNT & AUTO [id number] 20:14:00 Test Item Value Reference Range Interpretation [...] PERCENT (BEAKER) (test code = 2801) POCT-GLUCOSE [id number] 20:12:00 Test Item Value Reference Range Interpretation Comments POC-GLUCOSE METER 134 mg/dL 70-110 H : TESTED A T [facility] [address] (BEAKER) ([facility] [place] [facility] [facility], = 1538) [id number]: Associate Director Qa/Techni min ID = [id number] for CORRY YESSENIA JUNIE CBC (HEMOGRAM ONLY)2020-09-30 15:28:00 Test [...] 0-0 (BEAKER) (test code = 413) POCT-GLUCOSE [id number] 14:32:00 Test Item Value Reference Range Interpretation Comments POC-GLUCOSE METER 106 mg/dL 70-110 : TESTED A T [facility] 6720 (BEAKER) (test code = DEVON Serrato [facility], 1538) 80247: Associate Director Qa/Techni min ID = [id number] for CHUY SWANN HEMOGLOBIN [id number] 11:57:00 Test Item Value Reference Range Interpretation Comments HEMOGLOBIN A1C (BEAKER) (test code = 5.6 % 4.3-6.1 368) U/S, ABDOMINAL, [id number] 11:53:00Abdomen limited area? Add comment if clarification is needed.->Right upper quadrantReason for exam:->liver cirrhosis; ETOH abuse [facility] : 1950 Sex: [...] MDReport Verified Date/Time: 09/30/2020 11:53:08 US abdomen [id number] 11:53:00Interface, External Ris In - 09/30/2020 11:55 [...] signedby: CAITY HERNADEZ MD on 09/30/2020 11:53 [facility] + Reflex to Culture 2020-09-30 10:53:00 Test Item Value Reference Range Interpretation Comments Color, UA (test code Light Yellow = 5778-6) Clarity, UA (test Clear code = 5767-9) Specific Sheridan, UA 1.014 1.001-1.035 (test code = 5811-5) pH, UA (test code = 6.0 5.0-8.0 5803-2) Protein, UA (test 200 mg/dL Negative A code = 04062-0) Glucose, UA (test 50 mg/dL Negative A code = 365) Ketones, UA (test Negative Negative code = 2514-8) Bilirubin, UA (test Negative Negative code = 54634-3) Blood, UA (test code Small Negative A = 46833-2) Nitrite, UA (test Negative Negative code = 5802-4) Leukocytes, UA (test Negative Negative code = 5799-2) Urobilinogen, UA 0.2 mg/dL 0.2-1 (test code = 38900-7) RBC, UA (test code = 1 See_Comment [Autom ated 82463-1) message] The system which generated this result [...] . Bacteria, UA (test Few code = 86148-9) Mucus (test code = Few 8247-9) Squam Epithel, UA 1 See_Comment [Automate d (test code = 36917-8) messag e] The system which generated this result transmit altagracia reference range : /HPF. The reference range was not used to interpret this result as normal/abnormal . Hyaline Casts, UA 6 See_Comment [Automate d (test code = 70060-6) messag e] The system which generated this result transmit altagracia reference range : /LPF. The reference range was not used to interpret this result as normal/abnormal . Specimen Source (test code = 2795) ELIANA (test code = ELIANA) Associate Director Qa ID - [auto]Associate Director Qa ID - tech Lab Interpretation Abnormal (test code = 20676-3) [facility] [id number] 10:53:00 Test Item Value Reference Range Interpretation [...] = 514) SOURCE(BEAKER) (test code = 2795) Associate Director Qa ID - [auto]Associate Director Qa ID - techLactic acid, [id number] 10:00:00 Test Item Value Reference Range Interpretation Comments Lactate, Venous (test code 1.08 mmol/L 0.5-2.2 = 2872) ELIANA (test code = ELIANA) Associate Director Qa ID - ASHLEIGH L Lab Interpretation (test Normal code = 48748-2) [facility], [id number] 10:00:00 Test Item Value Reference Range Interpretation Comments LACTATE BLOOD VENOUS (2) (BEAKER) 1.08 mmol/L 0.50-2.20 (test code = 2872) Associate Director Qa ID - ASHLEIGH LCBC W/PLT COUNT & AUTO [id number] 09:53:00 Test Item Value Reference Range Interpretation [...] = 2801) RAD, CHEST, 1 VIEW, NON [id number] 09:06:00Reason for exam:->? sob [facility] : 1950 Sex: MFINAL REPORT INDICATION: ? sob COMPARISON: None TECHNIQUE: Single fro ntal view of the chest. FINDINGS: Lungs and pleura: Clear lungs. No effusion.Heart and mediastinum: Normal heart size. Unremarkable mediastinal contours.Osseous structures: No acute abnormality.Other: None. IMPRESSION: No acute intrathoracic abnormality. Signed: Nahed Cleary MDReport Verified Date/ Time: 09/30/2020 09:06:18 Reading Location: [facility] Radiology Reading Room XR chest 1 view portable / [id number] 09:06:00Interface, External Ris In - 09/30/2020 9:24 AM CDTFINAL REPORT INDICATION: ? sob COMPARISON: None TECHNIQUE: Single frontal view of the chest. FINDINGS: Lungs and pleura: Clearlungs. No effusion.Heart and mediastinum: Normal heart size. Unremarkable mediastinal contours.Osseous structures: No acute abnormality.Other: None. IMPRESSION: No acute intrathoracic abnormality. Sign ed: Nahed Cleary MDReport Verified Date/Time: 09/30/2020 09:06:18 Reading Location: [facility] Radiology Reading Room [facility] COMPREHENSIVE METABOLIC [id number] 07:47:00 Test Item Value Reference Range Interpretation [...] S NOT APPLICABLE FOR DIALYSIS PATIEN ALINE. Associate Director Qa ID - [id number] 07:07:00 Test Item Value Reference Range Interpretation Comments PTT (test code = 44858-7) 25.1 See_Comment [ Automated message] The system [employer] generated this result transmitted ref erence range: 22.5 - 3 6.0 seconds. The re ference range was not u sed to interpret this result as normal/abnor mal. Lab Interpretation (test Normal code = 69209-5) [facility] CenterPROTHROMBIN TIME/[id number] 07:07:00 Test Item Value Reference Range Interpretation Comments PROTIME (BEAKER) 14.2 seconds 11.9-14.2 (test code = 759) INR (BEAKER) (test 1.13 See_Comment [Automat ed message] code = 370) The system [employer] generated this result transmitted ref erence range: <=5.90. The reference range was not used to int erpret this result as normal/abnormal . Effective 12/11/2018: PT Reference Range ChangeNew: 11.9-14.2 Previous: 11.7- 14.7RECOMMENDED COUMADIN/WARFARIN INR THERAPY RANGESSTANDARD DOSE: 2.0-3.0 Includes: PROPHYLAXIS for venous thrombosis, systemic embolization; TREATMENT for venous thrombosis and/or pulmonary embolus.HIGH RISK: Target INR is2.5-3.5 for patients wiht mechanical heart valves.[id number] 07:07:00 Test Item Value Reference Range Interpretation Comments PARTIAL THROMBOPLASTIN TIME 25.1 seconds 22.5-36.0 (BEAKER) (test code = 760) POCT-GLUCOSE [id number] 06:39:00 Test Item Value Reference Range Interpretation Comments POC-GLUCOSE METER 150 mg/dL 70-110 H : TESTED A T [facility] 6720 (Noteleaf) (test code [facility], = 1538) 80235: Associate Director Qa/Techni min ID = [id number] for JUNIE ALICIA [id number] 00:00:00Ordered by an unspecified provider.[facility])2020-02-04 00:48:00 Test Item Value Reference Range Interpretation Comments SARS-COV2/RT-PCR (test Not Detected Not Detected, Negative, code = 1327625) See external report for linked test SARS-COV-2 PERFORMING LAB [facility] (test code = 6052997) Negative results do not preclude SARS-CoV-2 infection and should not be used as the sole basis for patient management decisions. Negative results must be combined with clinical observations, patient history, and epidemiological information. A false negative result may occur if a specimen is improperly collected, transported or handled.The limit of detection for this assay is 250 copies/mL.This SARS CoV-2 test is a rapid, real-time RT-PCR test intended for the qualitative detection of nucleic acid from SARS-CoV-2 in a nasopharyngeal swab specimen collected from individuals suspected of COVID-19 by their healthcare provider.This test has not been Food and Drug Administration (FDA) cleared or approved and has been authorized by FDA under an Emergency Use Authorization (EUA). This EUA will be effective until the declaration that circumstances exist justifying the authorization of the emergency use of in vitro diagnostic tests for detection and/or diagnosis of COVID-19 is terminated under Section 564(b)(2) of the Act or the EUA is revoked under Section 564(g) of the Act.Fact Sheet for Healthcare Pro viders:https://www.[employer]/Documents/Xpert%20Xpress%20SARS%20CoV-2/Fact%20Sh eets/3023802%72ZNQE-EQO-2%20HEALTHCARE%20PROVIDERS%20FACT%20SHEET.pdfFact Sheet for Healthcare Patients:https://www.[employer]/Documents/Xpert%20Xpress%20SARS%20CoV-2/Fact%20Sheets/3023801%20SARS-COV -2%20PATIENT%20FACT%20SHEET.pdfPerforming Laboratory:[facility], [place] [address]IDNI-SEE4/RT-PCR ([facility]) 2020-01-26 13:29:00 Test Item Value Reference Range Interpretation Comments SARS-COV2/RT-PCR (test code = Negative Not Detected, Negative 3502390) SARS-COV-2 PERFORMING LAB [facility] (test code = 6325744) Negative result for this test determines that [...] 564(g) of the Act.Fact Sheet for Healthcare Providers:https://www.[employer]/sites/default/files/product/documents/Fact_Shee o_DZ_Ilnfoszbj_Hvam_FXYK-ZnO-9.pdfFact Sheet for Healthcare Patients:https://www.[employer].com/sites/default/files/product/ documents/Ggob_Dewmt_Ctxfobgm_Qdey_CQKV-KjK-1.pdfPerforming Laboratory:[facility] [place] [address]
--- NOTE | 2021-02-22 21:06 | EDPHYS ---
Physician Documentation [facility] Name: Amaury Matamoros Age: 70 yrs Sex: Male : 1950 Arrival Date: 02/22/2021 Time: 19:03 Bed Waiting Private MD: Garo Us ED Physician Wally Miles HPI: 02/22 21:07 This 70 yrs old Male presents to ER via Wheelchair with complaints of Problem jr8 With Urinary Catheter. 21:07 Is a 70-year-old male patient presented emergency room for encounter for urinary jr8 catheter problem. Stated that the bag started to leak and needed new exchange. Denies any other complaints at this time.. Severity of symptoms: At their worst the symptoms were very mild. The patient has not experienced similar symptoms in the past. The patient has not recently seen a physician. Historical: - Allergies: 20:31 PENICILLINS; kg - Home Meds: 20:31 Metformin Oral [Active]; kg - PMHx: 20:31 Cellulitis; Hypertension; Diabetes - NIDDM; kg - PSHx: 20:31 Left AKA; kg - Immunization history:: Adult Immunizations unknown, . - Social history:: Smoking status: Patient denies any tobacco usage or history of. ROS: 21:07 Constitutional: Negative for fever, chills, and weight loss, Cardiovascular: Negative jr8 for chest pain, palpitations, and edema, Respiratory: Negative for shortness of breath, cough, wheezing, and pleuritic chest pain, Abdomen/GI: Negative for abdominal pain, nausea, vomiting, diarrhea, and constipation, Back: Negative for injury and pain, : Negative for injury, bleeding, discharge, and swelling, or urinary symptoms MS/Extremity: Negative for injury and deformity, Skin: Negative for injury, rash, and discoloration, Neuro: Negative for headache, weakness, numbness, tingling, and seizure. Exam: 21:07 Constitutional: This is a well developed, well nourished patient who is awake, alert, jr8 and in no acute distress. Cardiovascular: Regular rate and rhythm with a normal S1 and S2. No gallops, murmurs, or rubs. Normal PMI, no JVD. No pulse deficits. Respiratory: Lungs have equal breath sounds bilaterally, clear to auscultation and percussion. No rales, rhonchi or wheezes noted. No increased work of breathing, no retractions or nasal flaring. Abdomen/GI: Soft, non-tender, with normal bowel sounds. No distension or tympany. No guarding or rebound. No evidence of tenderness throughout. Back: No spinal tenderness. No costovertebral tenderness. Full range of motion. Male : Normal genitalia with no discharge or lesions. Skin: Warm, dry with normal turgor. Normal color with no rashes, no lesions, and no evidence of cellulitis. MS/ Extremity: Pulses equal, no cyanosis. Neurovascular intact. Full, normal range of motion. Left BKA noted Neuro: Awake and alert, GCS 15, oriented to person, place, time, and situation. Cranial nerves II-XII grossly intact. Motor strength 5/5 in all extremities. Sensory grossly intact. Vital Signs: 20:16 BP 140 / 87; Pulse 63; Resp 20; Temp 97.7(TE); Pulse Ox 100% on R/A; Weight 54.43 kg kg (R); Height 5 ft. 3 in. (160.02 cm) (R); Pain 0/10; 20:16 Body Mass Index 21.26 (54.43 kg, 160.02 cm) kg MDM: 20:21 Patient medically screened. jr8 21:07 Data reviewed: vital signs, nurses notes, and as a result, I will discharge patient. jr8 Data interpreted: Pulse oximetry: on room air is 100 %. Interpretation: normal. Counseling: I had a detailed discussion with the patient and/or guardian regarding: the historical points, exam findings, and any diagnostic results supporting the discharge/admit diagnosis, the need for outpatient follow up, a urologist, to return to the emergency department if symptoms worsen or persist or if there are any questions or concerns that arise at home. ED course: Bag replaced successfully and patient will follow up with urology tomorrow. Administered Medications: No medications were administered Disposition: 02/23 07:54 Co-signature as Attending Physician, Wally Miles MD I agree with the assessment and marj plan of care. Disposition Summary: 02/22/21 21:05 Discharge Ordered Location: Home jr8 Problem: new jr8 Symptoms: have improved jr8 Condition: Stable jr8 Diagnosis - Encounter for indolivierparam winkler jr8 Followup: jr8 - With: Private Physician - When: Tomorrow - Reason: Recheck today's complaints, Continuance of care, Re-evaluation by your physician Discharge Instructions: - Discharge Summary Sheet jr8 - Indwelling Urinary Catheter Care, Adult jr8 Forms: - Medication Reconciliation Form jr8 - Thank You Letter jr8 - Antibiotic Education jr8 - Prescription Opioid Use jr8 Signatures: Wally Miles MD MD cha Roszak, Josh, PA PA jr8 Lakesha Smith, RN RN kg
--- NOTE | 2021-02-22 21:06 | ER ---
Nurse's Notes [facility] Name: Amaury Matamoros Age: 70 yrs Sex: Male : 1950 Arrival Date: 02/22/2021 Time: 19:03 Bed Waiting Private MD: Garo sU Diagnosis: Encounter for indewlling winkler Presentation: 02/22 20:16 Chief complaint: Patient states: Winkler bag leaking. Coronavirus screen: Client denies kg travel out of the [place] in the last 14 days. At this time, unable to obtain information related to travel outside the [place] At this time, the client does not indicate any symptoms associated with coronavirus-19. Ebola Screen: Patient negative for fever greater than or equal to 101.5 degrees Fahrenheit, and additional compatible Ebola Virus Disease symptoms Patient denies exposure to infectious person. Patient denies travel to an Ebola-affected area in the 21 days before illness onset. Initial Sepsis Screen: Does the patient meet any 2 criteria? No. Patient's initial sepsis screen is negative. Does the patient have a suspected source of infection? No. Patient's initial sepsis screen is negative. Risk Assessment: Do you want to hurt yourself or someone else? Patient reports no desire to harm self or others. Onset of symptoms was February 22, 2021. 20:16 Method Of Arrival: Wheelchair kg 20:16 Acuity: ALEJANDRA 4 kg Triage Assessment: 20:33 General: Appears in no apparent distress. Behavior is calm, cooperative, appropriate kg for age, quiet. Pain: Denies pain. Historical: - Allergies: 20:31 PENICILLINS; kg - Home Meds: 20:31 Metformin Oral [Active]; kg - PMHx: 20:31 Cellulitis; Hypertension; Diabetes - NIDDM; kg - PSHx: 20:31 Left AKA; kg - Immunization history:: Adult Immunizations unknown, . - Social history:: Smoking status: Patient denies any tobacco usage or history of. Screenin:32 Abuse screen: Denies threats or abuse. Denies injuries from another. Nutritional kg screening: No deficits noted. Tuberculosis screening: No symptoms or risk factors identified. Fall Risk No fall in past 12 months (0 pts). Secondary diagnosis (15 points) No IV (0 pts). Ambulatory Aid- Crutches/Cane/Walker (15 pts). Gait- Impaired (20 pts.). Mental Status- Oriented to own ability (0 pts). Total Monahan Fall Scale indicates No Risk (0-24 pts). Assessment: 20:32 Reassessment: Changed winkler bag using aseptic technique. Pt tolerated well. kg 21:11 Reassessment: Patient unable to locate for discharge instructions. lp1 Vital Signs: 20:16 BP 140 / 87; Pulse 63; Resp 20; Temp 97.7(TE); Pulse Ox 100% on R/A; Weight 54.43 kg kg (R); Height 5 ft. 3 in. (160.02 cm) (R); Pain 0/10; 20:16 Body Mass Index 21.26 (54.43 kg, 160.02 cm) kg ED Course: 19:03 Patient arrived in ED. mr 19:04 Garo Us MD is Private Physician. mr 20:21 [facility] Flanagan [facility]. jr8 20:21 Wally Miles MD is Attending Physician. jr8 20:31 Triage completed. kg 20:32 Patient has correct armband on for positive identification. kg 20:32 No provider procedures requiring assistance completed. Patient did not have IV access kg during this emergency room visit. 21:06 Gabriela Smith, RN is Primary Nurse. lp1 Administered Medications: No medications were administered Outcome: 21:05 Discharge ordered by . jr8 21:12 Discharged to home lp1 21:12 Condition: good 21:12 Discharge instructions given to Patient unable to locate from ER lobby 21:13 Patient left the ED. lp1 Signatures: Mare Burnett mr Gabriela Smith, RN RN lp1 Piero Flanagan PA PA jr8 Lakesha Smith RN RN kg
[2021-02-22 21:18] VITALS: BP 140/87; TEMP 97.7; O2SAT 100
== END 2021-02-22 21:13 | disposition home or self-care (01) ==
LOC: ER 18:59
DX: T83.038A Leakage of other urinary catheter, initial encounter (principal); E11.9 Type 2 diabetes mellitus without complications; I10 Essential (primary) hypertension; Z88.0 Allergy status to penicillin
CPT/HCPCS: 99281

== ENCOUNTER 2021-02-27 19:03 | Emergency (ER) | payer OTHER ==
--- OUTSIDE RECORDS SUMMARY | 2021-02-27 19:08 | XMS REPORT | Continuity of Care Document ---
:1950 Author Organization [facility] t Address [address] [place] [address] Care Team Providers Name Role Phone Lynda Espinoza MD Attending Clinician Niranjan Jackson MD Attending Clinician Lynda ESPINOZA Attending Clinician Unavailable Narda MAXWELL, Eric Attending Clinician Jose Ross MD Attending Clinician Lynda ESPINOZA Admitting Clinician Unavailable Payers Payer Name Policy Type Policy Effective Date Expiration Date Sour ce Number [facility] [place] [facility] [id number] [facility] MGD CAREWELLCARE 00:00:00 - Medica l [id number]/[id number] Center 21-Present Problems Condition Condition Condition Status Onset Resolution Last Treating Co mments Source Name Details Category Date Date Treatment Clinician Date 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 00:00: Me dical site site 00 Center Liver Liver Disease Active [facility] cirrhosis cirrhosis - [facility] - 00:00: Medical 00 [place] Portal Portal Disease Active [facility] hypertensi hypertensi 10-03 Estrella kes - ve ve 00:00: Medical gastropath gastropath 00 Ce nter y y GI bleed GI bleed Disease Active [facility] t 3-18 [facility] - 00:00: Medical 00 [place] Allergies, Adverse Reactions, Alerts Allergy Allergy Status Severity Reaction(s) Onset Inactive Treating Comm ents Source Name Type Date Date Clinician Penicill Drug Active Rash [facility] ins Allergy 12-13 [facility] - 00:00: Medical 00 [place] Penicill Adverse Active Info Not [facility] t amine Reaction Available [facility] Social History Social Habit Start Date Stop Date Quantity Comments Source Sex Assigned At [facility] Alcohol intake 2020-10-04 2020-10-04 Current drinker [facility] Elvis hewitt [facility] - 00:00:00 00:00:00 of alcohol [facility] (finding) Tobacco use and 2020-10-04 2020-10-04 Never used [facility] - exposure 00:00:00 00:00:00 [facility] Smoking Status Start Date Stop Date Source Current every day smoker 2020-10-04 00:00:00 [facility] Medications Ordered Filled Start Stop Current [...] [address] [facility] Hydrochloro Hydrochloro Yes Alfonzo [address] thiazide thiazide Mera in the Luke s - morning [facility] Pantoprazol Pantoprazol Yes Alfonzo [address] e Sodium e Sodium Mera [facility] Metoprolol Metoprolol Yes Alfonzo [address] Tartrate Tartrate Mera with food L [facility] Ferrous Ferrous Yes Alfonzo [address] Sulfate Sulfate Mera [facility] Amlodipine Amlodipine Yes Alfonzo [address] Besylate Besylate Mera [facility] Gabapentin Gabapentin Yes Alfonzo [address] Mera [facility] Metformin Metformin Yes Alfonzo [address] HCl HCl Mera with a [facility] - meal [facility] Vital Signs Vital Name Observation Time Observation Value Comments Source Systolic blood 2020-10-03 19:17:00 111 mm[Hg] [facility] Diastolic blood 2020-10-03 19:17:00 61 mm[Hg] [facility] Heart rate 2020-10-03 19:17:00 75 /min [facility] Body temperature 2020-10-03 19:17:00 36.94 Latesha [facility] Respiratory rate 2020-10-03 19:17:00 17 /min [facility] Oxygen saturation in 2020-10-03 19:17:00 98 /min [facility] - Arterial blood by Medical Ce nter Pulse oximetry Body weight 2020-10-03 07:05:00 51.982 kg [facility] BMI 2020-10-03 07:05:00 20.96 kg/m2 [facility] Body height 2020-09-30 05:22:00 157.5 cm [facility] Procedures Procedure Date / Time Performed Performing Clinician Sour e POCT-GLUCOSE METER 2020-10-03 18:09:00 Alice Jackson [facility] HEPATITIS B PCR, 2020-10-03 15:49:00 Sarkis Laboy [facility] HEPATITIS C PCR, 2020-10-03 15:49:00 Sarkis Laboy [facility] POCT-GLUCOSE METER 2020-10-03 11:48:00 Alice Jackson [facility] POCT-GLUCOSE METER 2020-10-03 08:34:00 [facility] W/[facility]T COUNT & AUTO 2020-10-03 04:35:00 Nate Fields [facility] CBC (HEMOGRAM ONLY) 2020-10-03 04:35:00 Delmi Peguero [facility] BASIC METABOLIC PANEL (7) 2020-10-03 04:35:00 Delmi Peguero [facility] ACTIN (SMOOTH MUSCLE) 2020-10-03 04:35:00 Wendy [facility] - ANTIBODY, IGG [facility] ALPHA FETOPROTEIN (AFP), 2020-10-03 04:35:00 [facility] [id number]\\, 2020-10-03 04:35:00 [facility] SERUM [facility] ANTI-NUCLEAR ANTIBODY 2020-10-03 04:35:00 [facility] (GAMAL) [facility] BILIRUBIN, DIRECT 2020-10-03 04:35:00 Wendy [facility] CERULOPLASMIN 2020-10-03 04:35:00 [facility]TIBODY, IGG 2020-10-03 04:35:[address] [facility] HEPATITIS B SURFACE 2020-10-03 04:35:00 Wendy, Delfinaq CATARINA S t [facility] - ANTIBODY [facility] HEPATITIS B SURFACE 2020-10-03 04:35:00 Wendy, Kiah [facility] - ANTIGEN [facility] HEPATITIS B CORE 2020-10-03 04:35:00 [facility] - ANTIBODY, TOTAL [facility] HEPATITIS C ANTIBODY 2020-10-03 04:35:00 [facility] MITOCHONDRIA M2 ANTIBODY 2020-10-03 04:35:00 [facility] PROTHROMBIN TIME/INR 2020-10-03 04:35:00 [facility] POCT-GLUCOSE METER 2020-10-02 21:19:00 Alice Jackson [facility] CBC W/PLT COUNT & AUTO 2020-10-02 17:29:00 Nate Fields [facility] VANCOMYCIN LEVEL, TROUGH 2020-10-02 17:29:00 Severo Martinez [facility] POCT-GLUCOSE METER 2020-10-02 17:24:00 Alice Jackson [facility] POCT-GLUCOSE METER 2020-10-02 11:21:00 Alice Jackson [facility] POCT-GLUCOSE METER 2020-10-02 08:03:00 Alice Jackson [facility] CBC W/PLT COUNT & AUTO 2020-10-02 03:39:00 Nate Fields [facility] COMPREHENSIVE METABOLIC 2020-10-02 03:39:00 Delmi Peguero [facility] POCT-GLUCOSE METER 2020-10-01 21:23:00 Alice Jackson [facility] HEMOGLOBIN A1C 2020-10-01 14:34:00 Delmi Peguero [facility] CBC W/PLT COUNT & AUTO 2020-10-01 12:08:00 Adrienne Ortiz [facility] - DIFFERENTIAL [facility] POCT-GLUCOSE METER 2020-10-01 10:58:00 Alice Jackson [facility] REPORT OF PROCEDURE - 2020-10-01 10:35:58 Sarkis Laboy [facility] ENDOSCOPY [facility] VANCOMYCIN LEVEL, RANDOM 2020-10-01 10:06:00 Meghann Grier [facility] TISSUE EXAM 2020-10-01 09:43:00 Sarkis Laboy [facility] UPPER ENDOSCOPY,BIOPSY 2020-10-01 09:14:[address] [facility] POCT-GLUCOSE METER 2020-10-01 08:23:00 Alexis Jacksonurad [facility] POCT-GLUCOSE METER 2020-10-01 05:11:00 Renetta Alice [facility] VITAMIN B12 AND FOLATE 2020-10-01 04:42:00 [facility] IRON, TIBC, % SAT. 2020-10-01 04:42:[address] [facility] (WITHOUT FERRITIN) [facility] 2020-10-01 04:42:00 Ford Espinoza [facility] SARS-COV2/RT-PCR ([facility] & 2020-10-01 02:44:00 Nate Fields Ma [facility] - REF LABS) [facility] COMPREHENSIVE METABOLIC 2020-10-01 02:44:00 Nate Fields [facility] CBC W/PLT COUNT & AUTO 2020-10-01 02:44:00 Adrienne Ortiz [facility] - DIFFERENTIAL [facility] CBC W/PLT COUNT & AUTO 2020-09-30 20:01:00 Adrienne Ortiz [facility] DIFFERENTIAL [facility] POCT-GLUCOSE METER 2020-09-30 20:00:00 Alice Jackson [facility] CBC (HEMOGRAM ONLY) 2020-09-30 15:15:00 Nate Fields [facility], I [facility] POCT-GLUCOSE METER 2020-09-30 14:20:00 Alice Jackson [facility] US ABDOMEN LIMITED 2020-09-30 11:32:00 Ford Espinoza [facility] BLOOD CULTURE 2020-09-30 09:45:00 [facility] 2020-09-30 09:22:00 [facility] W/[facility]T COUNT & AUTO 2020-09-30 09:22:00 [facility] LACT[facility] ACID, VENOUS 2020-09-30 09:22:00 [facility] W/ REFLEX 2020-09-30 09:22:00 [facility] URINE CULTURE [facility] XR CHEST 1 VIEW PORTABLE 2020-09-30 08:39:[address] [facility] - / BEDSIDE [facility] HEMOGLOBIN A1C 2020-09-30 06:52:[address] [facility] POCT-GLUCOSE METER 2020-09-30 06:27:00 Ford Espinoza [facility] PROTHROMBIN TIME/INR 2020-09-30 06:22:00 Malcolm Hernandez CH, I [facility] APTT 2020-09-30 06:22:[address] [facility] COMPREHENSIVE METABOLIC 2020-09-30 06:22:00 Malcolm Hernandez [facility] REPORT OF PROCEDURE - 2020-09-30 00:00:00 Provider, Default [facility] ENDOSCOPY SCAN Scanning [facility] Plan of Care Planned Activity Planned Date Details Comments Source Future Scheduled 2020-07-[address] [facility] - Test 00:00:00 (12+) [code = [facility] DEPRESSION SCREENING (12+)] Future Scheduled 2020-07-[address] [facility] Test 00:00:00 (WELCOME TO MEDICARE) Medica l Center [code = Medicare IPPE (WELCOME TO MEDICARE)] Future Scheduled 2002 SHINGLES VACCINES ([address] [facility] - Test 00:00:00 of 2) [code = [facility] Center SHINGLES VACCINES (1 of 2)] Future [...] es - Test 00:00:00 malignant neoplasm of [facility] colon (procedure) [code = 175390942] Encounters Start End Encounter Admission Attending Care Care Encounter Source Date/Time Date/Time Type Type Clinicians Facility Department ID 2021-02-24 2021-02-24 Outpatient [facility] [id number] 2021-02-17 2021-02-17 [facility] [id number] 2021-02-10 2021-02-10 [id number] 2020-06-24 2020-06-24 [facility] [id number] [facility] 2020-06-03 2020-06-03 [facility] [id number] [facility] 2020-05-25 2020-05-25 [facility] [id number] [facility] 2020-05-13 2020-05-13 [facility] [id number] [facility] 2020-04-29 2020-04-29 [facility] [id number] [facility] 2020-04-15 2020-04-15 [facility] [id number] [facility] 2020-04-15 2020-04-15 [facility] [id number] [facility] 2020-04-07 2020-04-07 [facility] [id number] [facility] 2020-03-26 2020-03-26 [facility] [id number] 09:10:00 09:10:00 t [employer] [facility] Medicine l Medicine Outpati ent Clinics 2019-09-21 2019-09-21 [facility] [id number] 21:47:00 21:47:[address] [facility] Medicine l Medicine Outpati ent Clinics 2019-09-19 2019-09-19 [facility] [id number] 13:30:00 13:30:00 t [employer] [place] [employer] [facility] l Medicine Outpati ent Clinics 2019-09-10 2019-09-10 [facility] [id number] 10:15:00 10:15:00 t [employer] [place] [employer] [facility] l Medicine Outpati ent Clinics 2019-06-20 2019-06-20 [facility] [id number] 13:20:00 13:20:00 [facility] [employer] 2019-03-21 2019-03-21 Outpatient Giana [facility]ariat [id number] [facility] 11:20:00 11:20:00 [facility] ent Clinics Results Test Description Test Time [...] patients withautoimmune hepatitis (AIH) type 1, approxi axbssm72% of patients with a utoimmune cholangitis,chitra roximately 30% of patients with p rimary biliarycirrhosi s, and approximately 2 % of healthy people.High giulia ues are closely correlated with AIH type 1. ELIANA (test code = Performing Lab ELIANA) [employer] [address] [place] [address] Obdulia Ulrich MD, PhD, MARINA [facility] HospitalCeruloplasmin2021-03-24 14:07:00 Test Item Value Reference Range Interpretation Comments Ceruloplasmin (test code 39 mg/dL 18-36 H = 20190906) ELIANA (test code = ELIANA) Performing Lab *GIULIA [facility] [address] [place] [address] Nereida Rocha MD Lab Interpretation (test Abnormal code = 78368-4) [facility] HospitalMitochondria M2 Antibody (IgG)2020-10-06 13:29:00 Test Item Value Reference Range Interpretation Comments Mitochondria M2 Ab 20.3 U See Note: H Reference (test code = 5324672) Range: NEGATIVE: < OR = 20.0EQUIVOCAL: 20.1-24.9POSITI VE: > OR = 25.0 ELIANA (test code = ELIANA) Performing Lab EZ [facility] [address] [place] [address] Obdulia Ulrich MD, PhD, MARINA Lab Interpretation Abnormal (test code = 41993-7) [facility] - Routine (Left Venipuncture) 2020-10-05 14:00:00 Test Item Value Reference Range Interpretation Comments Result (test code = No growth in 5 days 6463-4) [facility] HospitalBLOOD [id number] 14:00:00 Test Item Value Reference Range Interpretation Comments CULTURE (BEAKER) (test No growth in 5 days code = 1095) BLOOD [id number] 11:00:00 Test Item Value Reference Range Interpretation Comments CULTURE (BEAKER) (test No growth in 5 days code = 1095) Hepatitis B PCR, [id number] 20:15:00 Test Item Value Reference Range Interpretation Comments HBV PCR, Quantitative HBV DNA not detected HBV DNA not (test code = 43122-4) detected ELIANA (test code = ELIANA) This test uses a Real-Time Polymerase Chain Reaction (RT-PCR) methodology and was performed using MADONNA AmpliPrep/MADONNA TaqMan HBV Test, v2.0 ([employer] Reportable range for this assay is 20 - 170,000,000 IU per mL (1.30 - 8.23 Log IU/mL). Lab Interpretation Normal (test code = 94833-2) [facility] Hospital[facility]AT[facility]IS B PCR, [id number] 20:15:00 Test Item Value Reference Range Interpretation Comments HBV RESULT COMPONENT HBV DNA not detected HBV DNA not detected (BEAKER) (test code = 2701) This test uses a Real-Time Polymerase Chain Reaction (RT-PCR) methodology and was performed using [employer] AmpliPrep/M[employer]NA TaqMan HBV Test, v2.0 ([employer]Reportable range for this assay is 20 - 170,000,000 IU per mL (1.30 - 8.23 Log IU/mL).Hepatitis C PCR, [id number] 19:56:00 Test Item Value Reference Range Interpretation Comments HCV PCR, Quantitative 722114 See_Comment H [Auto mated (test code = 98491-3) messag e] The system which generated this result transmitted reference range : <15 IU/mL. The reference range was not used to interpret this result as normal/abnormal . ELIANA (test code = ELIANA) This test uses a Real-Time Polymerase Chain Reaction (RT-PCR) methodology and was performed using [employer] Ampliprep/[employer] TaqMan HCV test kit version 2.0 ([employer]). Reportable range for this assay is 15 - 100,000,000 IU per mL (1.18 - 8.00 Log IU/mL). Lab Interpretation Abnormal (test code = 34200-1) [facility] Hospital[facility]IS C PCR, [id number] 19:56:00 Test Item Value Reference Range Interpretation Comments HCV NUMERIC RESULT (BEAKER) 874778 IU/mL <15 H (test code = 2700) This test uses a Real-Time Polymerase Chain Reaction (RT-PCR) methodology and was performed using [employer] Ampliprep/MADONNA TaqMan HCV test kit version 2.0 ([employer]).Reportable range for this assay is 15 - 100,000,000 IU per mL (1.18 - 8.00 Log IU/mL).Anti-Nuclear Antibody (GAMAL) 2020-10-04 12:41:00 Test Item Value Reference Range Interpretation Comments GAMAL (test code = 10604-4) Negative Negative ELIANA (test code = ELIANA) Test performed by IFA method. Lab Interpretation (test Normal code = 47558-1) [facility] HospitalANTI-NUCLEAR ANTIBODY (GAMAL)2020-10-04 12:41:00 Test Item Value Reference Range Interpretation Comments ANTI-NUCLEAR ANTIBODY (GAMAL) (BEAKER) Negative Negative (test code = 418) Test performed by IFA method.POC-Glucose [id number] 18:23:00 Test Item Value Reference Range Interpretation Comments POC-Glucose Meter (test 127 mg/dL 70-110 H : TE STED AT [facility] code = 1538) [address] [facility], 770 30: Environmental Monitoring Specialist/Techni min ID = [id number] for GregsánchezmynorKatelynn beltran Lab Interpretation (test Abnormal code = 07595-7) [facility] HospitalPOCT-GLUCOSE [id number] 18:23:00 Test Item Value Reference Range Interpretation Comments POC-GLUCOSE METER 127 mg/dL 70-110 H : TESTED A T [facility] 6720 (BEAKER) (test code = DEVON Serrato [facility], 1538) [address]: Environmental Monitoring Specialist/Techni min ID = [id number] for Katelynn Ramirez POCT-GLUCOSE [id number] 12:00:00 Test Item Value Reference Range Interpretation Comments POC-GLUCOSE METER 78 mg/dL 70-110 : TESTED A T [facility] 6720 (WENDI) (test code = DEVON Serrato [facility], 1538) 09468: Environmental Monitoring Specialist/Techni min ID = [id number] for Kassandra Woods Hepatitis B core antibody, [id number] 10:45:00 Test Item Value Reference Range Interpretation Comments Hep B Core Total Ab (test Reactive Nonreactive A code = 50376-8) ELIANA (test code = ELIANA) Environmental Monitoring Specialist ID - DBOperator ID - DBOperator ID - DB Lab Interpretation (test Abnormal code = 70218-3) [facility] Hospital[facility]AT[facility]IS [facility] CORE ANTIBODY, [id number] 10:45:00 Test Item Value Reference Range Interpretation Comments HEPATITIS B CORE TOTAL ANTIBODY Reactive Nonreactive A (WENDI) (test code = 497) Environmental Monitoring Specialist ID - DBOperator ID - DBOperator ID - DBPOCT-GLUCOSE [id number] 08:50:00 Test Item Value Reference Range Interpretation Comments POC-GLUCOSE METER 83 mg/dL 70-110 : TESTED A T [facility] 6720 (WENDI) (test code = DEVON Serrato [facility], 153) [address]405: Environmental Monitoring Specialist/Techni min ID = [id number] for Kassandra Woods Ksfxy-3-[id number] 08:30:00 Test Item Value Reference Range Interpretation Comments A-1 Antitrypsin (test 189.40 mg/dL 90-200 code = 1825-9) ELIANA (test code = ELIANA) Environmental Monitoring Specialist ID - DBOperator ID - DBOperator ID - DB Lab Interpretation (test Normal code = 93838-2) [facility] HospitalALPHA-1-[id number] 08:30:00 Test Item Value Reference Range Interpretation Comments ALPHA-1 ANTITRYPSIN (BEAKER) 189.40 mg/dL 90.00-200.00 (test code = 502) Environmental Monitoring Specialist ID - DBOperator ID - DBOperator ID - DBHepatitis A antibody, IgG 2020-10-03 07:01:00 Test Item Value Reference Range Interpretation Comments Hep A IgG (test code = Reactive Nonreactive A 56465-3) ELIANA (test code = ELIANA) Environmental Monitoring Specialist ID - DB Lab Interpretation (test Abnormal code = 78440-2) [facility] HospitalHEPAT[facility]IS A ANTIBODY, [id number] 07:01:00 Test Item Value Reference Range Interpretation Comments HEPATITIS A IGG ANTIBODY (BEAKER) Reactive Nonreactive A (test code = 2797) Environmental Monitoring Specialist ID - DBHepatitis C [id number] 06:59:00 Test Item Value Reference Range Interpretation Comments Hepatitis C Ab (test code = Reactive Nonreactive A 37548-3) ELIANA (test code = ELIANA) Environmental Monitoring Specialist ID - DB Lab Interpretation (test Abnormal code = 40883-0) [facility] HospitalHEPATITIS C [id number] 06:59:00 Test Item Value Reference Range Interpretation Comments HEPATITIS C ANTIBODY (BEAKER) (test Reactive Nonreactive A code = 367) Environmental Monitoring Specialist ID - DBBasic Metabolic [id number] 06:38:00 Test Item Value Reference Range Interpretation [...] (test code = 7.8 mg/dL 8.4-10.2 L 74814-6) EGFR (test code = 39 mL/min/1.73 [place] [address]-2) NOT ACCURATE CREATININE CLEARANCE IN PREDICTING GLOMERULAR FILTRATION RATE . ESTIMATED GFR I S NOT APPLICABLE FOR DIALYSIS PATIENTS. ELIANA (test code = ELIANA) Environmental Monitoring Specialist ID - EDASI Lab Interpretation Abnormal (test code = 66494-5) [facility] HospitalBilirubin, [id number] 06:38:00 Test Item Value Reference Range Interpretation Comments Bilirubin, Direct (test 0.2 mg/dL 0.1-0.5 code = 1968-7) ELIANA (test code = ELIANA) Environmental Monitoring Specialist ID - EDASI Lab Interpretation (test Normal code = 12473-4) [facility] HospitalBILIRUBIN, [id number] 06:38:00 Test Item Value Reference Range Interpretation Comments BILIRUBIN DIRECT (BEAKER) (test 0.2 mg/dL 0.1-0.5 code = 706) Environmental Monitoring Specialist ID - EDASIBASIC METABOLIC [id number] 06:38:00 Test Item Value Reference Range Interpretation [...] S NOT APPLICABLE FOR DIALYSIS PATIEN TS. Environmental Monitoring Specialist ID - EDASIHepatitis B surface [id number] 06:14:00 Test Item Value Reference Range Interpretation Comments Hep B S Ab (test code <8.0 See_Comment [Auto mated = 50453-9) message] The system which generated this result transmit altagracia reference range : <8.0 mIU/mL. Th e reference range was not used to interpret this result as normal/abnormal . ELIANA (test code = ELIANA) Environmental Monitoring Specialist ID - DB Lab Interpretation Normal (test code = 05811-2) [facility] HospitalHEPAT[facility]IS B SURFACE [id number] 06:14:00 Test Item Value Reference Range Interpretation Comments HEPATITIS B SURFACE ANTIBODY < mIU/mL <8.0 (BEAKER) (test code = 647) Environmental Monitoring Specialist ID - DBHepatitis B surface [id number] 06:13:00 Test Item Value Reference Range Interpretation Comments HBsAg Screen (test code Nonreactive Nonreactive = 5195-3) ELIANA (test code = ELIANA) Specimen is considered negative for HBsAg. Lab Interpretation (test Normal code = 36150-5) [facility] HospitalAlpha fetoprotein (AFP), tumor [id number] 06:13:00 Test Item Value Reference Range Interpretation Comments Alpha-Fetoprotein (test code 2.1 ng/mL <10.0 = 1834-1) ELIANA (test code = ELIANA) Environmental Monitoring Specialist ID - DB Lab Interpretation (test Normal code = 20508-6) [facility] HospitalHEPATISHRINERS H[facility]ALS FOR CHIL[facility]EN B SURFACE [id number] 06:13:00 Test Item Value Reference Range Interpretation Comments HEPATITIS B SURFACE ANTIGEN (2) Nonreactive Nonreactive (BEAKER) (test code = 2585) Specimen is considered negative for HBsAg.ALPHA FETOPROTEIN (AFP), TUMOR MARKER 2020-10-03 06:13:00 Test Item Value Reference Range Interpretation Comments ALPHA-FETOPROTEIN (BEAKER) (test 2.1 ng/mL <10.0 code = 1094) Environmental Monitoring Specialist ID - DBProthrombin time/[id number] 05:06:00 Test Item Value Reference Interpretation Comments Range Protime (test code = 14.4 See_Comment H [Autom ated 8142-2) message] The system which generated this result transmitted reference range : 11.9 - 14.2 seconds. The reference range was not used to interpret this result as normal/abnormal . INR (test code = 1.16 See_Comment [Automated 1351-6) message] The system which generated this result [...] valves. Lab Interpretation Abnormal (test code = 75832-5) [facility][id number] 05:06:00 Test Item Value Reference Range Interpretation Comments PROTIME (BEAKER) 14.4 seconds 11.9-14.2 H (test code = 759) INR (BEAKER) (test 1.16 See_Comment [Automat ed message] code = 370) The system [employer] generated this result transmitted ref erence range: [...] 8.8 See_Comment [A utomated message] The system [employer] generated this result transmitted ref erence range: 3.5 - 10 .5 K/L. The refe rence range was not u sed to interpret this result as normal/abnor mal. RBC (test code = 789-8) 2.56 See_Comment L [Au tomated message] The system [employer] generated this result transmitted ref erence range: 4.63 - 6 .08 M/L. The refe rence range was not u sed to interpret this result as normal/abnor mal. MCHC (test code = 786-4) 31.8 See_Comment L [A utomated message] The system [employer] generated this result transmitted ref erence range: [...] See_Comment [Aut omated message] 777-3) The system [employer] generated this result transmitted ref erence range: 150 - 45 0 K/CU MM. The referen ce range was not u sed to interpret this result as normal/abnor mal. MPV (test code = 10.2 fL 9.4-12.4 01590-9) nRBC (test code = 413) 0 See_Comment [Aut omated message] The system [employer] generated this result transmitted ref erence range: 0 - 0 /1 00 WBC. The refere nce range was not u sed to interpret this result as normal/abnor mal. Lab Interpretation (test Abnormal code = 13359-3) [facility] with platelet count + automated [id number] 04:58:00 Test Item Value Reference Range Interpretation Comments WBC (test code = 6690-2) 8.8 See_Comment [A utomated message] The system [employer] generated this result transmitted ref erence range: 3.5 - 10 .5 K/L. The refe rence range was not u sed to interpret this result as normal/abnor mal. RBC (test code = 789-8) 2.56 See_Comment L [Au tomated message] The system [employer] generated this result transmitted ref erence range: 4.63 - 6 .08 M/L. The refe rence range was not u sed to interpret this result as normal/abnor mal. MCHC (test code = 786-4) 31.8 See_Comment L [A utomated message] The system [employer] generated this result transmitted ref erence range: [...] See_Comment [Aut omated message] 777-3) The system [employer] generated this result transmitted ref erence range: 150 - 45 0 K/CU MM. The referen ce range was not u sed to interpret this result as normal/abnor mal. MPV (test code = 10.2 fL 9.4-12.4 11547-1) nRBC (test code = 413) 0 See_Comment [Aut omated message] The system [employer] generated this result transmitted ref erence range: [...] H [Aut omated message] 670) The system [employer] generated this result transmitted ref erence range: 1.78 - 5 .38 K/L. The refe rence range was not u sed to interpret this result as normal/abnor mal. # Lymphs (test code = 0.86 See_Comment L [Auto mated message] 414) The system [employer] generated this result transmitted ref erence range: 1.32 - 3 .57 K/L. The refe rence range was not u sed to interpret this result as normal/abnor mal. # Monos (test code = 0.72 See_Comment [Autom ated message] 415) The system [employer] generated this result transmitted ref erence range: 0.30 - 0 .82 K/L. The refe rence range was not u sed to interpret this result as normal/abnor mal. # Eos (test code = 416) 0.12 See_Comment [Au tomated message] The system [employer] generated this result transmitted ref erence range: 0.04 - 0 .54 K/L. The refe rence range was not u sed to interpret this result as normal/abnor mal. # Baso (test code = 417) 0.02 See_Comment [A utomated message] The system [employer] generated this result transmitted ref erence range: 0.01 - 0 .08 K/L. The refe rence range was not u sed to interpret this result as normal/abnor mal. Immature 1 % 0-1 Granulocytes-Relative (test code = 2801) Lab Interpretation (test Abnormal code = 05200-4) [facility] W/PLT COUNT & AUTO [id number] 04:58:00 Test Item Value Reference Range Interpretation [...] 0-0 (BEAKER) (test code = 413) POCT-GLUCOSE [id number] 21:32:00 Test Item Value Reference Range Interpretation Comments POC-GLUCOSE METER 128 mg/dL 70-110 H : TESTED A T [facility] 6720 (BEAKER) (test code = DEVON MADRID [place], 1538) 77947: Environmental Monitoring Specialist/Techni min ID = [id number] for Lien Mansfield Vancomycin level, [id number] 18:09:00 Test Item Value Reference Range Interpretation Comments Vancomycin Tr (test code 6.3 ug/mL 10-20 L = 4092-3) ELIANA (test code = ELIANA) Environmental Monitoring Specialist ID - DBIf vancomycin trough level > 20 mcg/mL, hold next vancomycin dose, and contact MD and pharmacist. Lab Interpretation (test Abnormal code = 13849-9) [facility], [id number] 18:09:00 Test Item Value Reference Range Interpretation Comments VANCOMYCIN TROUGH (BEAKER) (test 6.3 ug/mL 10.0-20.0 L code = 522) Environmental Monitoring Specialist ID - DBIf vancomycin trough level > [...] PERCENT (BEAKER) (test code = 2801) POCT-GLUCOSE [id number] 17:36:00 Test Item Value Reference Range Interpretation Comments POC-GLUCOSE METER 124 mg/dL 70-110 H : TESTED A T [facility] 6720 (BEAKER) (test code = DEVON Serrato [facility], 1538) [address]: Environmental Monitoring Specialist/Techni min ID = [id number] for Jaswinder Jefferson Tissue [id number] 14:24:00 Test Item Value Reference Range Interpretation Comments Case Report (test code Surgical Pathology = 104) Report Case: [id number] Authorizing Provider: Sarkis Laboy, Collected: 10/01/2020 09:43 AM Ordering Location: [place] [address] ccu Received: 10/01/2020 01:48 PM Pathologist: Pa Peters MD Specimens: A) - Biopsy, Gastric, random biopsy B) - Gastric, gastric erythema biopsy DIAGNOSIS (test code = k9ydmJLxSRHqn2ltWQQgzC 3220) FuZzEwMzNcZnRuYmpcdWMx IHtccnRmMVxlcGljOTIwMl werqFfYCZlqZDbT6Jgxxii AElvGG1hJP3wdIkitDXdsQ BwJQZgGwKzj1qiq803pMNu a9ooLCQJnfakuKm7fLtiV9 5jh7P5SlyrB12cbYWvBNgk bGFpblxmczIwIEEuIFNUT0 7HH1jtXCSHGvVPQDPLNdLI O5ABTNbKZH3SD44YKCbcGz kKXUYUEAR8NBRhvue5YBSs UZHJJrMOTLxdRTLMS6AGME dJVEggTUlMRCBDSFJPTklD HAlOKNLAFMPXNYuJX3ASKB JZQyWTNcFaDu7JILemSL1U LMYYTH2WENYUESRCHUsRQ4 xIXPNinhh2BFYxDAMTOBiL XQgJRR2NB96UQTBHTCHSTF 0XFGGrE9vJP04UMxPOPlCI VElWRSBHQVNUUklUSVMgV0 qEYJEMQ1PPAOBKA2LCCyhS WOglHWOtoRLwTI7dT3NJIF qCSqNYIBVHJpqnD5PPUF4i GdZYQGFHWgMuIt0XSPtePX OMLT0XCYECDAaWAQ9TQ0RC ZARLY7lxTCFhvAZfQT9eIy HRXESNAlGvFa4DBUQGH0UE HCOJKJCVNpCEUTEVTL3ONV IlwAYxVMWiflFWTcLSGI0D QUNILCBFUllUSEVNQSwgRU 9GW0CTZ1YANmUCSRLVF5LC FPACE2VMZSXFIfowWNDsuY WnSE3nK5rMZwQDLxIEFYLE P3RlU8aTDGOGSSjCTIITAf 0OYUIgYV8ZU0DBAuVqA5CU VFJJVElTIEFORCBWRVJZIE KKM3PFNIREKTdJPXYBGQPs ciAgICAgICAgICAgICAgLS TBKT8ZQeFiFUFCITUPJQCC Y09QCBFDES7FNKKFSIXHUB JUTFkgREVOVURFRCBXUElU BSRLNXRSOQIbitu5HTMzJG BXQVJUSElOIFNUQVJSWSBT VEFJTiBORUdBVElWRSBGT1 AzML3iNXyJU0NYCBiKG4Ij X1ATEO8MU64ZKHGwszv7ZX StJBGPBWjQUGzGMNORI5Kt TZ2SWOCGGB5UYGTYNKBDZX jVB8wEQDAHJKVSALLFKILz L7RqZ8JEY9hFP90VNNGjyp 13DQS2OgSwp2H5BKR7UIFt YPLcp3eqWJYhgEDnJkIjNh NcZnRuYmpcdWMxXGRlZmYw i4hri216gKKzj0dyENReNd W1dDHoOWDxfJVzP845LQRt GXczw3ksv1WvXVZvqXDha5 S3YANDmpvfjHv2xVvmB99x v6R1WzncC8haSIPcWZKgZ4 PyKI8gPKQhJzi2MKL0IRZ5 SQMiUPEwH0OdGP8jSUOgdC AkKQt4f8oclMuyLGZdOXV7 l8kzMJopgtTxXS3lio8aoY l7x5pukpZnDXJgAERjgUES LUHxL2TawLnbVv8voBf0fQ bcDxagTSZ0Qog3US9kyw37 fny8hUrzFZUskfwfKaS2WH coGHHxmantSGw9SFpwNQXp cRG5WOWcyEHoM7CoHCGcAD 5lwdb5JUV5MRpaYROjTbF8 NDBcaGVhZGVyeTcyMFxmb2 35HXM9YtMbPH6sT7Sio7M0 zJ1qgOPuDTYvvRLnLhApAV Ugcn2ohLWaUEotd8VnJVW7 yuX5jGSltMCkSRXlQdY1BF ztGV9eic47RDOfVWP9dw6a bGNccGdicmRyaGVhZFxwZ2 YjOTYhe908NNDbI2BkAMPq s5X4tnLdTcUxYTXkvJF3ds J6SXUhHH8ojqqzq8mtURtd VHiiRKIxxuL3gqI1OKIdjI UkB9OurD2gUZXuXW2iuvmq j2rnOHD4VHemURUyXIO2Xl CaJLIbg2Zjgyl9AqXzs3Yg zPVrVCudT07ro551UWKduj ItL3zedIBmxmtyxTXpuzes OXgbguT7FOQnGYhwbgveNI GiLJaiJ2ztFtEtLAUamAyk RFthg7OeZESwDJRcAvFkqV AmZJNoYvh3PTWukAMnQIAc OgJpY2uulmtfKlLECBHai8 mjL4mrmHXUrTStB3MqCKnc flPvGEgiEJahIIUwEDA2UK 30EAzvTPCadc31 CPT Code(s) (test code k5cynNIlBILndVK0YpDwBN = 3357) Xmk5btk8WksMEglPKaOHkw cNEemsIoqj90mLV3dU99YT 1vWURyJyS8NURjnkU2Vck6 UIEkSAIzqDJwK780l5yep9 kikkReiFA4pJqhQXRjYMWr YWluXGZzMjAgODgzMDUgWC GtUGY7AQQqAePPPuvaGHB2 CLINICAL HISTORY (test g2hqyECnEFXnpAA4DgYmRW code = 3356) Pzq4oym3GemUGchINuAUzh xZCzllCvzq36sRR4tW49WB 7zQTPqYoD0OTHjysG7Wnd2 VJFpTLTegOXyO158j7lec5 untvFxrGH7pLmwLUJsLRQk PZrzSNLpHxJoaDDoZM7iVL Bhcn0= SPECIMEN SOURCE (test n5rmeISbXDJciLK0FvSdYO code = 3377) Wmf5qmb4UviFIupRHqJQqb pATjjkUwkc03xBN4fG53SK 9cBFYfQhF6AOBrujJ5Ota3 WXIlQHPsePLeL994p7ppq9 ktkqWzaJA9nIphENUzILNy DTnrPWOwKkRjBA6mQVgrh0 HaoNTzeXvlZFDGExFeT2Nz nJEvG7wlPSO4 GROSS DESCRIPTION (test o5nocGYnIAPpuXBmKsAhII code = 3366) YoYAAno6inCWHmqTSjWiOy MzNcZnRuYmpcdWMxXGRlZm Toz0hug075yCRpq6rvSOSd FvF9aWXvDKPlgVChR962k7 xah6ydfvHxvYP2CXYaMOH5 XJqyusBxamH0SAyumQVkMw E3BAirpxZgAJwipeKyhzZl Brf0GFFqK028VXR6cEnbz5 iaYWF5IAMyLGVdYsHsZk5x oEMnF190XGAjNOYDHLLbvC r2JOIsqcRineIwlWPNy006 M332v2wdIQJfbmFllXyJyi rzn1lkF539PXMkoHMmcoOl FdYyITNmwJIhiSY4SBFyCS 4mftsvNaFnWB8frdruYbSh QL1ngnh4JbYyVV0ubdugEd QnCEokCFXvlsnuUZXiv1Xv ftggBF7xE5Pxu0N2nD3nwQ PmZQWbyXZkIrXdJPEdmx4y eODySKqak3XuYWA9cpD4dU CsjZQoYBFrCH08Fqzuq2Fp ErrkGFP4SLYyvaXwb3Ogo1 fuWePtesToN9peK4XnXQKj AUYoZQRkRaKuslQwc9Ses3 MzqZKxbSy6r7diBJTjZMCw eRipf3gtCDD0CFPuJ2O6vT Yyl7iuVTuxTUFptJK2zlny OObdYAGxzfG1ghsjUZpmFM IwhQR2fogbYYrvIEBqOaV6 xszeUJvbDQXjERX7BMfed7 82ARH5QZvdZnufHQotWJTo bmNvbnRccGduZGVjXHBsYW luXHBsYWluXGYwXGZzMjRc tLsuvJwesP4mUmPvTcQwCU hxSM2aWOXhN9thwLTtRHIa DWSnV8bqSkGxnL6pfBhkFW xmczIwIEEuICBSZWNlaXZl XWInymHpe9NhQLufvpLxGE HaiFPsXBDtHZUlXLHvDI12 W0NugtBdJPapLYNxMTXrdB 9fVY78kLAwvuPoxrEeKepk f5RrcJCdWxvrbQC2FwBcem ZdMQF6TP6yxMqywtB0rBMc kAAlWaNkV12tidNcJY5yUK M8wofvIiV5gGC8atLgUkKh Q59uiO6oI9CwMTNyd5XjLN tyMI1czJ5eWQfygJHyINRj ZMIqpVk8KDDsCNPcwsIwh2 WpyGc5fFEmPBirMMRvjO6k vD1hNQFsCQSwfbahAIZwYo 5tFFCkN0LtayTiVXbrWVYt vv1vgJzeTThtCmCyDCWgaD ogRARuhTtbsaPzptYdRU5s JQNjY4Btk6Mri42khwLsHg SoBCPuXLCwW5YteILzPzCs aXMgYSAwLjIgeCAwLjIgeC PcEyViL27vzMFwVNCtosjk kVhsm0LsHCGuPUmoBB26AP doaWNoIGlzIGZpbHRlcmVk NHGwTHJdcOFopOJ3IHQpwB 1upS79lqCozyWLRT8yoUXy IQUjebCErPjmkgXFlat0NM xsZXMsIFBBLCBIVCAoQVND UClccGFyfQ== MICROSCOPIC DESCRIPTION m2hvtJBdJVZmvVG0BbNkKF (test code = 3371) Gwn5gub0BkeBPxvROvLDgz bFFbqnVxmr57dNX9vM54EY 9vXGQgFtR1PZSqrfT1Dgn6 YPLfHKBdyGYoN748f0mch7 mlggYrmOI2sGuqITCbBMFg RWcrIDNoViQuCJLcDa9wwM VkLlxwYXJ9 SPECIAL STUDIES (test d2pqiMAoNDEiw2ntJNFepT code = 3376) FuZzEwMzNcZnRuYmpcdWMx LMitfhLfKHwuj1CfQ8VnHg AwMFxhbnNpXGRlZmxhbmcx IFWmRXX6jeUfNUVdPDxvIS PoHPjvLr0gvNXueJxpXqOf KBKdt2makmTWqxfsaXy6t9 tqUOEgBjG9iQJhSNvvN7xt wiNzuMEzY2VuuOPppIv9q8 yuStVpItW9zYHpQLzdB2vi uyEkfFCmSXSzSTj3sR56LM PdsF2peXEjATovohFjAqK8 TBasQMTiYaD0NAWxwCRzEB EqY2mzAXQxOLdkQDInOLwa mSGkPCX6sOycv6C2eFXqiU CobZepHbBqSvSeRiOGg7Jd TLk9lCriG9FaILRxIpC4nS QgUGFyYWdyYXBoIEZvbnQ7 zEfocgIih63boNNeFKPnTP MoXoGtzSheNCKdLAPIc2Jy iJdtQJR0kIq2cCkmHqvmWD U5Dco1DW0omg64djj0aDft ZZOeuvzdDmR3PVdzXRBhjz xxUKw5XLwlUAHjaKO7OXKh tIPpJ5WsQFNyTF1igcp1KU R9WRllQGBdFkO8CVJgpLNp XGSiyZyeXBhhb250GIG8Ck TzMX3bK9Knk2R6gT5viJRi APUjnJKnLqYeZEBpie4pmX SlJGpcs9ZkOQX4uuD6vWPl uYEgAESpSL88Eoekf4XeEb mzw5OdC08olRY5GTnwp9rd QN8sVnN1lcLjESnlr1houP 9kEjA6MCzdDR7yNT9mLFJd bB3minzjLYCwVdPsraqtOS VbzSokgsVjOj2kbRdzDEV6 MQbyY1ibmA6eEmU8GLqoM9 weeJ4wTJl7WXuikFT1HYKi xQ5aUG9lhibxt3xqGNqeCN zpKYNvqiG0otE5UNTpmLDl U2AndS4uOQCvYP1mgaupi6 yjYDL3EZgsQNNyCGE1NpQy AAFki8Bywds4ScZpv7RjgA RmQDrdX30bv240PXIeghPa G8cqzJSsjsvutAJhtancGV inmmK9JSGvYNIuUCmhYNTi XGZzMjJcbGFuZzEwMzNcaG ljaFxmMVxkYmNoXGYxXGxv N5nlYfLpQ8FkIZIcRuMwUS kpLPwvyRHacJJarKE6uK5c MY3pMCKltXRlR7XlBWWbcg GlqCWkRHD6gIAotOLyZB0e YKisgDSgm5syl3YlX6kpcG qusZN4JX5fRBEbFZKfSRhq e1FgwQ3uBjarcALlwwhmTY xmczIyXGxhbmcxMDMzXGhp N9mvXcDnAOJwnWtzAVjxr0 NoXGYxXGNmMlxmczIyXGx0 cmNoXHBhclxwYXJccGxhaW 3uLhEcUfAiPhinVL0kDXAm P5ysnADpZZDfQWNxP3jrZg PdmE1fjIpxONaaMsDoToXp ZaEKi318rm2oFSFhyATfmk VAwWLefI9bYFckYQlySBap lPGfSAaoq8orPVZkc0l3iO RoBPPrmxLzn2gpIQnazqWe HTLmxONoyIYtYTCxg10tBE wjsNplxUccYALbw8KtxAoi s3EyVzAaQYvmk9MxB39owV JvbCBzbGlkZXMgcnVuIGFs s74mg4awVLLpRwN8tLCgfD V0uEIwrHHah3XgbZibXDId l4ctOBGpwp9pejigcHDoz1 ZarD3ybzefRKbfqQOgbtVc ARNdk4l8tTWpGOVoXPVuKK njzSs8SWFbm253uv4hfuD7 uXIsUNN9QXgfRPCuGITyzq UgZXZhbHVhdGVkXHBsYWlu XGYxXGZzMjJcbGFuZzEwMz NcaGljaFxmMVxkYmNoXGYx RYuwQ4qsVbPhK6UyWKHeKj FdmECkD7cbhYQsLCFyAAsy XGYxXGZzMjJcbGFuZzEwMz NcaGljaFxmMVxkYmNoXGYx MBhfJ0nlKbCkZ2BkLKPaSs IgIFxwbGFpblxmMVxmczIy TCbpkpaxEUXuMIivL3mnCk HtWAMmuPkhYIetg6NnGQFi IHMrCfavgrRjWUy5dsJrWX BhclxwbGFpblxmMVxmczIy QQdzdwivFELzSDvtN2vyCi DyDQVhiGyqPKdru6GgTQUh XGNmMlxmczIyIEltbXVub2 erb6MbO1cikGvueHD3UJDg H9gvvKWmlSA4DSA4wJ1zOW agapZeFGGoo6KwJAKuSSCy SkF6kQ0cRMV3JjCKvIkgYR BsYWluXGYxXGZzMjJcbGFu ZzEwMzNcaGljaFxmMVxkYm YvURQiNPksD2xrYgIfV1Ok VDDhOnFopKybPOtjIUh0Om xwbGFpblxmMVxmczIyXGxh nxstBOMgFSgdI5ebCqTpHJ KzvDeuJLmmq8LoMGCjVUHm MlxmczIyIHMgTWVkaWNhbC DGCZ16SCSrRMZteWfpiB7z uCLQVSAzadG9d7O6CNhsEG XcOQy0DCainwYaSQOhsN1m BXMzRL3uPDi8kjCuSURcd1 QhFK2hFXDvrFTlOHB9YOVx j7TjZ8Tux2HkAPSgJYDnvl 4kqvRlAyEXsXEmOCGddc65 AJXjTK1jG2axVUKdKIRazl XnlZBzr4CqQEVvsVT1nMXc SD1WZdERg38xKOEtGCGNhm RiEBXusPoqnTX5tpC2sW7n LiBUaGUgRkRBIGhhcyBkZX Prcb7qjeSsNAIxYRMdb4Cw uZCarOMujaMzT9Waf7UlHZ Xbco66SCediPEfqg55VL0y B2Adx4GqoG3uJCnfKLWjo8 AtqKPwpDWqADYuq4WjW5ib qqeoYQekeOAcbZ5bWWNbXO l9JHEaj6UtZIDot5QbKuHh feWxABNsUGQlCIBtkO46SA P4aTnapFndalPcVS1iAREs nbKuSIBbHKQjpN1aTVoqij TfOKVtnlQ4j0M0FGioRYKu njGtNgtwMSH3agQotnY6gU LlW2prlsouIByqUTAah3Yk sQ7veTQRkLUsy6DftPBqbA BKtOItDG6iupToNN1nPFO1 ODggKENMSUEtODgpIGFzIH E0WEjpEhdhEOE0xiZgRKVm i6OmXYmcC9kjT61mqLqlaF h5kVByvZyhdTMcfTTxWOOn iwE3f0N2LCOxu7JdxhyyWT BsYWluXGYyXGZzMjJcbGFu ZzEwMzNcaGljaFxmMlxkYm WyQKHySRtqP0fxQcJsYeYy NoayMXF7tW== Gross assessment was [facility] performed at ([facility], = 2777) Department of Pathology, [address] [place] [address], Technical component was [facility] performed at ([facility], = 2779) Department of Pathology, [address] [place], [place] [id number], Professional component [facility] was performed at ([facility], code = 2779) Department of Pathology, [address] [place] [address], [facility] [id number] 14:24:00Surgical Pathology Report Case: [id number] Authorizing Provider: Sarkis Laboy, Collected: 10/01/2020 09:43 AM OrderingLocation: [place] [address] ccu Received: 10/01/2020 01:48 PM Pathologist: Pa [...] OR CARCINOMA Signing Pathologist Direct Phone Line: [phone] signed by Pa Peters MD on 10/02/2020 at 2:24 [id number] X 2, [id number] [id number]. GastricB. GastricA. Received in formalin labeled the [...] evaluated Immunohistochemistry technical testing was performed at [facility], Pathology Laboratory where it was developed [...] qualified to perform high complexity clinical laboratory testing.[facility], Department of Pathology, [address] [place] [address], [facility], [address] [place] [address], [facility], Department of Pathology, [address] [place] [address], GGMQ-GLUCOSE [id number] 11:33:00 Test Item Value Reference Range Interpretation Comments POC-GLUCOSE METER 124 mg/dL 70-110 H : TESTED A T [facility] 6720 (BEMEREDITH) (test code = DEVON Serrato [facility], 1538) [address]: Environmental Monitoring Specialist/Techni min ID = [id number] for Jaswinder Jefferson POCT-GLUCOSE [id number] 08:15:00 Test Item Value Reference Range Interpretation Comments POC-GLUCOSE METER 106 mg/dL 70-110 : TESTED A T [facility] 6720 (WENDI) (test code = DEVON Serrato [facility], 1538) 8[address]: Environmental Monitoring Specialist/Techni min ID = [id number] for Jaswinder Jefferson Comprehensive metabolic [id number] 05:17:00 Test Item Value Reference Range Interpretation Comments Protein, Total (test 6.1 See_Comment [Autom ated code = 2885-2) message] The system which generated this result transmit altagracia reference range : 6.0 - 8.3 gm/dL . The reference range was not u sed to interpret th is result as normal/abnormal . Albumin (test code = 2.6 g/dL 3.5-5 L 88674-4) Alkaline Phosphatase 85 U/L 40-150 (test code [...] (test code = 7.7 mg/dL 8.4-10.2 L 73169-1) AST (test code = 17 U/L 5-34 1920-8) ALT (test code = 9 U/L 6-55 1742-6) EGFR (test code = 35 mL/min/1.73 [place] [address]-6) NOT ACCURATE CREATININE CLEARANCE IN PREDICTING GLOMERULAR FILTRATION RATE . ESTIMATED GFR I S NOT APPLICABLE FOR DIALYSIS PATIEN TS. ELIANA (test code = ELIANA) Environmental Monitoring Specialist ID - EDASI Lab Interpretation Abnormal (test code = 38037-3) [facility] [id number] 05:17:00 Test Item Value Reference Range Interpretation [...] S NOT APPLICABLE FOR DIALYSIS PATIEN TS. Environmental Monitoring Specialist ID - EDASICBC W/PLT COUNT & AUTO [id number] 04:32:00 Test Item Value Reference Range Interpretation [...] PERCENT (BEAKER) (test code = 2801) POCT-GLUCOSE [id number] 21:36:00 Test Item Value Reference Range Interpretation Comments POC-GLUCOSE METER 146 mg/dL 70-110 H : TESTED A T [facility] (BEAKER) (test code = [place], 1538) [address]: Environmental Monitoring Specialist/Techni min ID = [id number] for Johana Vasquez Hemoglobin [id number] 15:28:00 Test Item Value Reference Range Interpretation Comments Hemoglobin A1C (test code = 4548-4) 5.6 % 4.3-6.1 Lab Interpretation (test code = Normal 28003-5) [facility] [id number] 15:28:00 Test Item Value Reference Range Interpretation Comments HEMOGLOBIN A1C (BEAKER) (test code = 5.6 % 4.3-6.1 368) CBC W/PLT COUNT & AUTO [id number] 12:44:00 Test Item Value Reference Range Interpretation [...] PERCENT (BEAKER) (test code = 2801) POCT-GLUCOSE [id number] 11:11:00 Test Item Value Reference Range Interpretation Comments POC-GLUCOSE METER 125 mg/dL 70-110 H : TESTED A T [facility] (BEAKER) (test code = [place], 1538) [address]: Environmental Monitoring Specialist/Techni min ID = [id number] for BE LL, BEAULA Vancomycin level, [id number] 10:39:00 Test Item Value Reference Range Interpretation Comments Vancomycin Rm (test 4.8 ug/mL code = 55228-7) ELIANA (test code = Reference Range: No ELIANA) NormalsOperator ID - COLBY C [facility] HospitalVANCOMYCIN LEVEL, [id number] 10:39:00 Test Item Value Reference Range Interpretation Comments VANCOMYCIN RANDOM (BEAKER) (test 4.8 ug/mL code = 523) Reference Range: No NormalsOperator ID - JUL CPOCT-GLUCOSE [id number] 08:38:00 Test Item Value Reference Range Interpretation Comments POC-GLUCOSE METER 119 mg/dL 70-110 H : TESTED A T [facility] 67[address] (WENDI) (test code = [place], 1538) [address]: Environmental Monitoring Specialist/Techni min ID = [id number] for BARBARA FRIEDMAN SARS-CoV2/RT-PCR (Asymptomatic ONLY)2020-10-01 08:13:00 Test Item Value Reference Range Interpretation Comments SARS-COV2/RT-PCR Negative Not Detected, (test code = Negative, See 68270-1) external report for linked test SARS-COV-2 [facility] PERFORMING LAB (test code = 10460-1) ELIANA (test code = Negative result for [...] of the Act. Fact Sheet for Healthcare Providers:https://www.HALKAR.com/sites/default/f dorys/product/documents/F act_Sheet_HC_Providers_L yki_IKSS-GtY-1.pdf Fact Sheet for Healthcare Patients:https://www.Xenith.com/sites/default/fi les/product/documents/Fa ct_Sheet_Patients_Ly_S ARS-CoV-2.pdf Performing Laboratory:[facility] [place] [address] [facility] ([facility])2020-10-01 08:13:00 Test Item Value Reference Range Interpretation Comments SARS-COV2/RT-PCR (test Negative Not Detected, Negative, code = 6880827) See external report for linked test SARS-COV-2 PERFORMING LAB [facility] (test code = 8205586) Negative result for this test determines that [...] 564(g) of the Act.Fact Sheet for Healthcare Providers:https://www.Cupple.Tripnary/sites/default/files/product/documents/Fact_Sheeddie hewittj_PG_Cuetrxttp_Opwx_OSMW-IqN-7.pdfFact Sheet for Healthcare Patients:https://www.Eyewitness Surveillance/sites/default/files/product/ documents/Dcmx_Fygmj_Btjstqxa_Uplw_SSGI-WvB-0.pdfPerforming Laboratory:[facility], [place] [id number] 06:20:00 Test Item Value Reference Range Interpretation Comments Ferritin (test code = 61.09 ng/mL 5-275 2276-4) ELIANA (test code = ELIANA) Environmental Monitoring Specialist ID - ASHLEIGH L Lab Interpretation (test Normal code = 73431-2) [facility] HospitalVitamin B12 and [id number] 06:20:00 Test Item Value Reference Range Interpretation Comments Vitamin B12 (test 267 pg/mL 213-816 code = 2132-9) Folate (test code = 11.30 ng/mL See_Comment [Automa altagracia 2284-8) message] The system which generated this result transmit altagracia reference range : >=7.00. The reference range was not used to interpret this result as normal/abnormal . ELIANA (test code = ELIANA) Environmental Monitoring Specialist ID - ASHLEIGH L Lab Interpretation Normal (test code = 66867-7) [facility] Hospital[facility]ERR[facility]IN2021-[facility] 06:20:00 Test Item Value Reference Range Interpretation Comments FERRITIN (BEAKER) (test code = 61.09 ng/mL 5.00-275.00 361) Environmental Monitoring Specialist ID - ASHLEIGH LVITAMIN B12 AND [id number] 06:20:00 Test Item Value Reference Range Interpretation Comments VITAMIN B12 267 pg/mL 213-816 (BEAKER) (test code = 774) FOLATE (BEAKER) 11.30 ng/mL See_Comment [Automated message] (test code = 362) The system which generated this result transmitted ref erence range: >=7.00. The reference range was not used to interpr et this result as normal/abnormal . Environmental Monitoring Specialist ID - ASHLEIGH Vazquez, TIBC, % sat. (without ferritin)2020-10-01 06:04:00 Test Item Value Reference Range Interpretation Comments Iron (test code = 2498-4) 17.0 ug/dL 40-160 L TIBC (test code = 2500-7) 323 ug/dL 250-450 Iron % Saturation (test 5 % 20-55 L code = 2502-3) ELIANA (test code = ELIANA) Environmental Monitoring Specialist ID - ASHLEIGH L Lab Interpretation (test Abnormal code = 04467-3) [facility] HospitalIRON, TIBC, % SAT. (WITHOUT FERRITIN)2020-10-01 06:04:00 Test Item Value Reference Range Interpretation Comments IRON (BEAKER) (test code = 547) 17.0 ug/dL 40.0-160.0 L TOTAL IRON BINDING CAPACITY 323 ug/dL 250-450 (BEAKER) (test code = 769) IRON % SATURATION (2) (BEAKER) 5 % 20-55 L (test code = 2590) Environmental Monitoring Specialist ID - ASHLEIGH LPOCT-GLUCOSE [id number] 05:23:00 Test Item Value Reference Range Interpretation Comments POC-GLUCOSE METER 116 mg/dL 70-110 H : TESTED A T [facility] (BEAKER) (test code [facility], = 1538) [address]: Environmental Monitoring Specialist/Techni min ID = [id number] for JUNIE ALICIA CBC W/PLT COUNT & AUTO [id number] 03:26:00 Test Item Value Reference Range Interpretation [...] (BEAKER) (test code = 2801) COMPREHENSIVE METABOLIC [id number] 03:22:00 Test Item Value Reference Range Interpretation [...] S NOT APPLICABLE FOR DIALYSIS PATIEN TS. Environmental Monitoring Specialist ID - DBCBC W/PLT COUNT & AUTO [id number] 20:14:00 Test Item Value Reference Range Interpretation [...] PERCENT (BEAKER) (test code = 2801) POCT-GLUCOSE [id number] 20:12:00 Test Item Value Reference Range Interpretation Comments POC-GLUCOSE METER 134 mg/dL 70-110 H : [facility] ([facility]AKER[facility] (test code [facility], = 1538) [address]886: Environmental Monitoring Specialist/Techni min ID = [id number] for JUNIE ALICIA CBC (HEMOGRAM ONLY)2020-09-30 15:28:00 Test Item Value [...] 0-0 (BEAKER) (test code = 413) POCT-GLUCOSE [id number] 14:32:00 Test Item Value Reference Range Interpretation Comments POC-GLUCOSE METER 106 mg/dL 70-110 : TESTED A T [facility] 6720 (BEAKER) (test code = [place], 1538) [address]: Environmental Monitoring Specialist/Techni min ID = [id number] for CHUY SWANN HEMOGLOBIN [id number] 11:57:00 Test Item Value Reference Range Interpretation Comments HEMOGLOBIN A1C (BEAKER) (test code = 5.6 % 4.3-6.1 368) U/S, ABDOMINAL, [id number] 11:53:00Abdomen limited area? Add comment if clarification is needed.->Right upper quadrantReason for exam:->liver cirrhosis; ETOH abuse [facility] : 1950 Sex: MFINAL [...] MDReport Verified Date/Time: 09/30/2020 11:53:08 US abdomen [id number] 11:53:00Interface, External Ris In - 09/30/2020 11:55 [...] CAITY HERNADEZ MD on 09/30/2020 11:53 [facility] Reflex to Culture 2020-09-30 10:53:00 Test Item Value Reference Range Interpretation Comments Color, UA (test code Light Yellow = 5778-6) Clarity, UA (test Clear code = 5767-9) Specific Hertel, UA 1.014 1.001-1.035 (test code = 5811-5) pH, UA (test code = 6.0 5.0-8.0 5803-2) Protein, UA (test 200 mg/dL Negative A code = 22962-7) Glucose, UA (test 50 mg/dL Negative A code = 365) Ketones, UA (test Negative Negative code = 2514-8) Bilirubin, UA (test Negative Negative code = 84627-1) Blood, UA (test code Small Negative A = 96265-7) Nitrite, UA (test Negative Negative code = 5802-4) Leukocytes, UA (test Negative Negative code = 5799-2) Urobilinogen, UA 0.2 mg/dL 0.2-1 (test code = 26984-5) RBC, UA (test code = 1 See_Comment [Autom ated 32624-2) message] The system which generated this result [...] . Bacteria, UA (test Few code = 72210-0) Mucus (test code = Few 8247-9) Squam Epithel, UA 1 See_Comment [Automate d (test code = 41278-1) messag e] The system which generated this result transmit altagracia reference range : /HPF. The reference range was not used to interpret this result as normal/abnormal . Hyaline Casts, UA 6 See_Comment [Automate d (test code = 31661-1) messag e] The system which generated this result transmit altagracia reference range : /LPF. The reference range was not used to interpret this result as normal/abnormal . Specimen Source (test code = 2795) ELIANA (test code = ELIANA) Environmental Monitoring Specialist ID - [auto]Environmental Monitoring Specialist ID - tech Lab Interpretation Abnormal (test code = 68056-0) [facility] [id number] 10:53:00 Test Item Value Reference Range Interpretation [...] code = 514) SOURCE(BEAKER) (test code = 6211) Environmental Monitoring Specialist ID - [auto]Environmental Monitoring Specialist ID - techLactic acid, [id number] 10:00:00 Test Item Value Reference Range Interpretation Comments Lactate, Venous (test code 1.08 mmol/L 0.5-2.2 = 2872) ELIANA (test code = ELIANA) Environmental Monitoring Specialist ID - ASHLEIGH L Lab Interpretation (test Normal code = 00280-1) [facility], [id number] 10:00:00 Test Item Value Reference Range Interpretation Comments LACTATE BLOOD VENOUS (2) (BEAKER) 1.08 mmol/L 0.50-2.20 (test code = 2872) Environmental Monitoring Specialist ID - ASHLEIGH LCBC W/PLT COUNT & AUTO [id number] 09:53:00 Test Item Value Reference Range Interpretation [...] = 2801) RAD, CHEST, 1 VIEW, NON [id number] 09:06:00Reason for exam:->? sob [facility] : 1950 Sex: MFINAL REPORT INDICATION: ? sob COMPARISON: None TECHNIQUE: Single fro ntal view of the chest. FINDINGS: Lungs and pleura: Clear lungs. No effusion.Heart and mediastinum: Normal heart size. Unremarkable mediastinal contours.Osseous structures: No acute abnormality.Other: None. IMPRESSION: No acute intrathoracic abnormality. Signed: ShellyNahed Michel Verified Date/ Time: 09/30/2020 09:06:18 Reading Location: [facility] Radiology Reading Room XR chest 1 view portable / [id number] 09:06:00Interface, External Ris In - 09/30/2020 9:24 AM CDTFINAL REPORT INDICATION: ? sob COMPARISON: None TECHNIQUE: Single frontal view of the chest. FINDINGS: Lungs and pleura: Clearlungs. No effusion.Heart and mediastinum: Normal heart size. Unremarkable mediastinal contours.Osseous structures: No acute abnormality.Other: None. IMPRESSION: No acute intrathoracic abnormality. Sign ed: Shelly Nahed Pearson Verified Date/Time: 09/30/2020 09:06:18 Reading Location: [facility] Radiology Reading Room [facility] COMPREHENSIVE METABOLIC [id number] 07:47:00 Test Item Value Reference Range Interpretation [...] S NOT APPLICABLE FOR DIALYSIS PATIEN TS. Environmental Monitoring Specialist ID - [id number] 07:07:00 Test Item Value Reference Range Interpretation Comments PTT (test code = 14146-8) 25.1 See_Comment [ Automated message] The system [employer] generated this result transmitted ref erence range: 22.5 - 3 6.0 seconds. The re ference range was not u sed to interpret this result as normal/abnor mal. Lab Interpretation (test Normal code = 99638-4) [facility] HospitalPROT[facility]OMBIN [facility]/[id number] 07:07:00 Test Item Value Reference Range Interpretation Comments PROTIME (BEAKER) 14.2 seconds 11.9-14.2 (test code = 759) INR (BEAKER) (test 1.13 See_Comment [Automat ed message] code = 370) The system [employer] generated this result transmitted ref erence range: <=5.90. The reference range was not used to int erpret this result as normal/abnormal . Effective 12/11/2018: PT Reference Range ChangeNew: 11.9-14.2 Previous: 11.7- 14.7RECOMMENDED COUMADIN/WARFARIN INR THERAPY RANGESSTANDARD DOSE: 2.0-3.0 Includes: PROPHYLAXIS for venous thrombosis, systemic embolization; TREATMENT for venous thrombosis and/or pulmonary embolus.HIGH RISK: Target INR is2.5-3.5 for patients wiht mechanical heart valves.[id number] 07:07:00 Test Item Value Reference Range Interpretation Comments PARTIAL THROMBOPLASTIN TIME 25.1 seconds 22.5-36.0 (BEAKER) (test code = 760) POCT-GLUCOSE [id number] 06:39:00 Test Item Value Reference Range Interpretation Comments POC-GLUCOSE METER 150 mg/dL 70-110 H : TESTED A T [facility] 6720 (WENDI) (test code [facility], = 1538) [address]: Environmental Monitoring Specialist/Techni min ID = [id number] for JUNIE ALICIA [id number] 00:00:00Ordered by an unspecified provider.[facility])2020-02-04 00:48:00 Test Item Value Reference Range Interpretation Comments SARS-COV2/RT-PCR (test Not Detected Not Detected, Negative, code = 1432493) See external report for linked test SARS-COV-2 PERFORMING LAB [facility] (test code = 7435516) Negative results do not preclude SARS-CoV-2 infection [...] of the Act.Fact Sheet for Healthcare Pro viders:https://www.[employer]ripnary/Documents/Xpert%20Xpress%20SARS%20CoV-2/Fact%20Sh eets/302-6812%80GTEC-UED-9%20HEALTHCARE%20PROVIDERS%20FACT%20SHEET.pdfFact Sheet for Healthcare Patients:https://www.[employer]Tripnary/Documents/Xpert%20Xpress%20SARS%20CoV-2/Fact%20Sheets/3023801%20SARS-COV -2%20PATIENT%20FACT%20SHEET.pdfPerforming Laboratory:[facility] [place], [place] [address]zoya [place]arezH[place], [place] [address]AXLR-GUX0/RT-PCR ([facility]) 2020-01-26 13:29:00 Test Item Value Reference Range Interpretation Comments SARS-COV2/RT-PCR (test code = Negative Not Detected, Negative 7555155) SARS-COV-2 PERFORMING LAB [facility] (test code = 9473322) Negative result for this test determines that [...] 564(g) of the Act.Fact Sheet for Healthcare Providers:https://www.[employer]Tripnary/sites/default/files/product/documents/Fact_Shee w_DT_Pxoznhvlh_Tmgl_SGMX-KqC-5.pdfFact Sheet for Healthcare Patients:https://www.[employer]/sites/default/files/product/ documents/Pwdq_Gaabu_Oxiniyys_Aiuc_ZVWG-JcH-1.pdfPerforming Laboratory:[facility] [place] [address]
--- NOTE | 2021-02-27 19:33 | ER ---
Nurse's Notes [facility] Name: Amaury Matamoros Age: 70 yrs Sex: Male : 1950 Arrival Date: 02/27/2021 Time: 19:06 Bed Waiting Private MD: Diagnosis: ED Course: 02/27 19:06 Patient arrived in ED. ds1 19:32 Patient's name was called from ER lobby. No response. Unable to locate patient. Will bb disposition as left without being seen by a provider. Administered Medications: No medications were administered Outcome: 19:33 Patient left the ED. bb Signatures: Alana Harrell ds1 Shanna Jones, RN RN bb
== END 2021-02-27 19:33 | disposition left against medical advice (07) ==
LOC: ER 19:03
DX: Z02.9 Encounter for administrative examinations, unspecified (principal)

== ENCOUNTER 2021-03-01 17:41 | Emergency (ER) | payer OTHER ==
--- OUTSIDE RECORDS SUMMARY | 2021-03-01 17:47 | XMS REPORT | Continuity of Care Document ---
:1950 Author Organization [facility] t Address [address] [place] [address] Care Team Providers Name Role Phone Laney MAXWELL B. Attending Clinician Niranjan Jackson MD Attending Clinician Narda MAXWELL, Eric Attending Clinician Vandana MAXWELL, Jose Attending Clinician Lynda ESPINOZA Admitting Clinician Unavailable Payers Payer Name Policy Type Policy Effective Date Expiration Date Sour ce Number [facility] MEDICARE [id number] [facility] [place] 00:00[facility]00 - Medica l [id number]/08/04 Center 21-Present Problems Condition Condition Condition Status [...] Penicill Drug Active Rash [facility] ins Allergy 5- [facility] - 00:00: Medical 00 Center Penicill Adverse Active Info Not [facility] t amine Reaction Available [facility] Social History Social Habit Start Date Stop Date Quantity Comments Source Sex Assigned At [facility] Alcohol intake 2020-10-04 2020-10-04 Current drinker [facility] Elvis t [facility] - 00:00:00 00:00:00 of alcohol [facility] (finding) Tobacco use and 2020-10-04 2020-10-04 Never used [facility] - exposure 00:00:00 00:00:00 [facility] Smoking Status Start Date Stop Date Source Current every day smoker 2020-10-04 00:00:00 [facility] Medications Ordered Filled Start Stop Current Ordering Indication Dosage Frequency Signature Comments Components Source Medication Medication Date Date Medication? Clinician (SIG) Name Name amLODIPine 2021- No 2.5mg QD Take [address] [facility] (NORVASC) 10-04- tablet [facility] - 2.5 MG 00:00: 23:59 (2.5 mg Medical tablet 00 :00 total) by Center mouth daily. amLODIPine 2021- No 2.5mg QD Take [address] [facility] [address] (NORVASC) 10-04- tablet [facility] - 2.5 MG 00:00: 23:59 (2.5 mg Medical tablet 00 :00 total) by Center mouth daily. pantoprazol Yes 40mg Q.5D Take [address] [facility] [address] e 3-21 tablet (40 [facility] - (PROTONIX) 00:00: mg total) Me dical 40 MG 00 by mouth 2 Center tablet (two) times daily. pantoprazol 0 Yes 40mg Q.5D Take [address] [facility] 3-21 tablet (40 [facility] - (PROTONIX) 00:00: mg total) Me dical 40 MG 00 by mouth 2 Center tablet (two) times daily. acetaminoph 2021- No 650mg Take [address] [facility] 10-0316 tablets [facility] - (TYLENOL) 00:00: 23:59 (650 mg Medi marisel 325 MG 00 :00 total) by Center tablet mouth every 6 (six) hours as needed for up to 360 days. acetaminoph 2021- No 650mg Take [address] [facility] 10-0316 tablets [facility] - (TYLENOL) 00:00: 23:59 (650 [...] every 12 (twelve) hours for 10 days. doxycycline 2020- No 100mg Take [address] (MONODOX) 10-03 capsule [facility] - 100 MG 00:00: 23:59 (100 mg Medical capsule 00 :00 total) by Center mouth every 12 (twelve) hours for 10 days. Lisinopril Lisinopril Yes Alfonzo [address] [facility] Mera [facility] - [facility] l [facility] ent Clinics Hydrochloro Hydrochloro Yes Alfonzo [address] thiazide thiazide Mera in the Luke s - morning [facility] ent [facility] Pantoprazol Pantoprazol Yes Alfonzo [address] e Sodium e Sodium Mera [facility] ent [facility] Metoprolol Metoprolol Yes Alfonzo [address] Tartrate Tartrate Mera with food L [facility] - [facility] ent [facility] Ferrous Ferrous Yes Alfonzo [address] Sulfate Sulfate Mera [facility] l [facility] ent [facility] Amlodipine Amlodipine Yes Alfonzo [address] Besylate Besylate Mera [facility] l [facility] ent Clinics Gabapentin Gabapentin Yes Alfonzo [address] Mera [facility] - [facility] l [facility] ent [facility] Metformin Metformin Yes Alfonzo [address] HCl HCl Mera with a [facility]ukes - meal [facility] ent [facility] Vital Signs Vital Name Observation Time Observation Value Comments Source Systolic blood 2020-10-03 19:17:00 111 mm[Hg] [facility] Diastolic blood 2020-10-03 19:17:00 61 mm[Hg] [facility] Heart rate 2020-10-03 19:17:00 75 /min [facility] Body temperature 2020-10-03 19:17:00 36.94 Latesha [facility] Respiratory rate 2020-10-03 19:17:00 17 /min [facility] Oxygen saturation in 2020-10-03 19:17:00 98 /min [facility] Arterial blood by Medical Ce nter Pulse oximetry Body weight 2020-10-03 07:05:00 51.982 kg [facility] BMI 2020-10-03 07:05:00 20.96 kg/m2 [facility] Body height 2020-09-30 05:22:00 157.5 cm [facility] Procedures Procedure Date / Time Performed Performing Clinician [facility] e POCT-GLUCOSE METER 2020-10-03 18:09:00 Alice Jackson [facility] HEPATITIS B PCR, 2020-10-03 15:49:00 Sarkis Laboy [facility] HEPATITIS C PCR, 2020-10-03 15:49:00 Sarkis Laboy [facility] POCT-GLUCOSE METER 2020-10-03 11:48:00 Alice Jackson [facility] POCT-GLUCOSE METER 2020-10-03 08:34:00 lAice Jackson [facility] CBC W/PLT COUNT & AUTO 2020-10-03 04:35:00 Nate Fields [facility] CBC (HEMOGRAM ONLY) 2020-10-03 04:35:00 Delmi Peguero [facility] BASIC METABOLIC PANEL (7) 2020-10-03 04:35:00 Delmi Peguero [facility] ACTIN (SMOOTH MUSCLE) 2020-10-03 04:35:[address] [facility] - ANTIBODY, IGG [facility] ALPHA FETOPROTEIN (AFP), 2020-10-03 04:35:[address] [facility] TUMOR MARKER [facility] UBLOG-0-IKZYTSNPESS\\, 2020-10-03 04:35:[address] [facility] SERUM [facility] ANTI-NUCLEAR ANTIBODY 2020-10-03 04:35:[address] [facility] - (GAMAL) [facility] BILIRUBIN, DIRECT 2020-10-03 04:35:00 [facility] CERULOPLASMIN 2020-10-03 04:35:00 [facility]TIB[facility], IGG 2020-10-03 04:35:00 [facility] B SURFACE 2020-10-03 04:35:00 Kiah Nguyen [facility] S t [facility] - ANTIBODY [facility] HEPATITIS B SURFACE 2020-10-03 04:35:00 [facility] ANTIGEN [facility] HEPATITIS B CORE 2020-10-03 04:35:[address] [facility] - ANTIBODY, TOTAL [facility] HEPATITIS C ANTIBODY 2020-10-03 04:35:00 [facility] MITOCHONDRIA M2 ANTIBODY 2020-10-03 04:35:00 [facility] PROTHROMBIN TIME/INR 2020-10-03 04:35:00 Wendy [facility] POCT-GLUCOSE METER 2020-10-02 21:19:00 Alice Jackson [facility] CBC W/PLT COUNT & AUTO 2020-10-02 17:29:00 Nate Fields [facility] VANCOMYCIN LEVEL, TROUGH 2020-10-02 17:29:00 Severo Martinez [facility] POCT-GLUCOSE METER 2020-10-02 17:24:00 [facility]SE METER 2020-10-02 11:21:00 Alice Jackson [facility] POCT-GLUCOSE METER 2020-10-02 08:03:00 [facility] W/[facility]T COUNT & AUTO 2020-10-02 03:39:00 Diamond [facility] COMPREHENSIVE METABOLIC 2020-10-02 03:39:00 Marielena [facility] POCT-GLUCOSE METER 2020-10-01 21:23:00 [facility] HEMOGLOBIN A1C 2020-10-01 14:34:00 Marielena [facility] CBC W/PLT COUNT & AUTO 2020-10-01 12:08:00 Adrienne Ortiz [facility] POCT-GLUCOSE METER 2020-10-01 10:58:00 [facility] REPORT OF PROCEDURE - 2020-10-01 10:35:58 Sarkis Laboy [facility] - ENDOSCOPY [facility] VANCOMYCIN LEVEL, RANDOM 2020-10-01 10:06:00 Meghann Grier [facility] TISSUE EXAM 2020-10-01 09:43:00 Sarkis Laboy [facility] UPPER ENDOSCOPY,BIOPSY 2020-10-01 09:14:00 Sarkis Laboy [facility] POCT-GLUCOSE METER 2020-10-01 08:23:00 Alice Jackson [facility] POCT-GLUCOSE METER 2020-10-01 05:11:00 Alice Jackson [facility] VITAMIN B12 AND FOLATE 2020-10-01 04:42:00 Ford Espinoza [facility] IRON, TIBC, % SAT. 2020-10-01 04:42:00 Ford Espinoza [facility] (WITHOUT FERRITIN) [facility] 2020-10-01 04:42:00 Ford Espinoza [facility] SARS-COV2/RT-PCR ([facility] & 2020-10-01 02:44:00 Nate Fields [facility] - REF LABS) [facility] COMPREHENSIVE METABOLIC 2020-10-01 02:44:[address] [facility] CBC W/PLT COUNT & AUTO 2020-10-01 02:44:00 Adrienne Ortiz [facility] DIFFERENTIAL [facility] CBC W/PLT COUNT & AUTO 2020-09-30 20:01:00 Malathi Ortizolette [facility] DIFFERENTIAL [facility] POCT-GLUCOSE METER 2020-09-30 20:00:00 Renetta Alice [facility] CBC (HEMOGRAM ONLY) 2020-09-30 15:15:00 Nate Fields I [facility] POCT-GLUCOSE METER 2020-09-30 14:20:00 Alice Jackson [facility] US ABDOMEN LIMITED 2020-09-30 11:32:00 Ford Espinoza [facility] BLOOD CULTURE 2020-09-30 09:45:00 Planerichard [facility] BLOOD CULTURE 2020-09-30 09:22:00 Planejose angel [facility] CBC W/PLT COUNT & AUTO 2020-09-30 09:22:00 Patricia [facility] LACTIC ACID, VENOUS 2020-09-30 09:22:[address] [facility] URINALYSIS W/ REFLEX 2020-09-30 09:22:00 Arnaldo Gomez [facility] - URINE CULTURE [facility] XR CHEST 1 VIEW PORTABLE 2020-09-30 08:39:00 Adrienne Ortiz [facility] - / BEDSIDE [facility] HEMOGLOBIN A1C 2020-09-30 06:52:00 Malcolm Hernandez [facility] POCT-GLUCOSE METER 2020-09-30 06:27:00 Ford Espinoza [facility] PROTHROMBIN TIME/INR 2020-09-30 06:22:00 Malcolm Hernandez [facility], I [facility] APTT 2020-09-30 06:22:00 Malcolm Hernandez [facility] COMPREHENSIVE METABOLIC 2020-09-30 06:22:00 [facility] REPORT OF PROCEDURE - 2020-09-30 00:00:00 ProviderSherwin [facility] ENDOSCOPY SCAN Scanning [facility] Plan of Care Planned Activity Planned Date Details Comments Source Future Scheduled 2020-07-[address] [facility] - Test 00:00:00 (12+) [code = Medical Center DEPRESSION SCREENING (12+)] Future Scheduled 2020-07-[address] [facility]00 (WELCOME TO MEDICARE) Medica l Center [code = Medicare IPPE (WELCOME TO MEDICARE)] Future Scheduled 2020-07-[address] [...] SHINGLES VACCINES (1 of 2)] Future Scheduled 2002 SHINGLES VACCINES ([address] [facility] - Test 00:00:00 of 2) [code = Medical Center SHINGLES VACCINES (1 of 2)] Future Scheduled 1971-12-21 DTAP/TDAP/TD VACCINES [facility] Test 00:00:00 (1 - Tdap) [code = Medical C enter DTAP/TDAP/TD VACCINES (1 - Tdap)] Future Scheduled 1971-12-21 DTAP/TDAP/TD VACCINES [facility] Test 00:00:00 (1 - Tdap) [code = Medical C enter DTAP/TDAP/TD VACCINES (1 - Tdap)] Future Scheduled 1964 COVID-19 VACCINE (1) [facility] - Test 00:00:00 [code = COVID-[address] VACCINE (1)] Future Scheduled 1964 COVID-19 VACCINE (1) [facility] - Test 00:00:00 [code = COVID-[address] VACCINE (1)] Future Scheduled [address] [facility] Test 00:00:00 malignant neoplasm of Medica l Center colon (procedure) [code = 117886427] Future Scheduled [address] [facility] Test 00:00:00 malignant neoplasm of Medica l Center colon (procedure) [code = 512950876] Encounters Start End Encounter Admission Attending Care Care Encounter Source Date/Time Date/Time Type Type Clinicians Facility Department ID 2021-02-24 2021-02-24 [facility] [id number] 2021-02-17 2021-02-17 [facility] [id number] [facility] 2021-02-10 2021-02-10 [facility] [id number] [facility] 2020-06-24 2020-06-24 [facility] [id number] [facility] 2020-06-03 2020-06-03 [facility] [id number] [facility] 2020-05-25 2020-05-25 Outpatient [facility] [id number] [facility] 2020-05-13 2020-05-13 Outpatient [facility] [id number] [facility] 2020-04-29 2020-04-29 Outpatient [facility] [id number] [facility] 2020-04-15 2020-04-15 Outpatient [facility] [id number] [facility] 2020-04-15 2020-04-15 Outpatient [facility]ML[facility] [id number] [facility] 2020-04-07 2020-04-07 Outpatient [facility] [id number] [facility] 2020-03-26 2020-03-26 [facility] [id number] [facility] 09:10:00 09:10:00 t locr [facility] Medicine l Medicine Outpati ent Clinics 2019-09-21 2019-09-21 [facility] [id number] 21:47:00 21:47:00 t [facility] Medicine l Medicine Outpati ent Clinics 2019-09-19 2019-09-19 [facility] [id number] 13:30:00 13:30:00 t [facility] Medicine l Medicine Outpati ent Clinics 2019-09-10 2019-09-10 [facility] [id number] 10:15:00 10:15:00 t [facility] Medicine l Medicine Outpati ent Clinics 2019-06-20 2019-06-20 [facility] [id number] 13:20:00 13:20:00 [facility] 2019-03-21 2019-03-21 Outpatient Giana Fariat [id number] [facility] 11:20:00 11:20:00 [facility] Results Test Description Test Time [...] patients withautoimmune hepatitis (AIH) type 1, approxi qynhdt14% of patients with a utoimmune cholangitis,chitra roximately 30% of patients with p rimary biliarycirrhosi s, and approximately 2 % of healthy people.High giulia ues are closely correlated with AIH type 1. ELIANA (test code = Performing Lab ELIANA) [facility] [address] [place] [address] Obdulia Ulrich MD, PhD, MARINA [facility] Hospital[facility] (Smooth Muscle) Antibody, [id number] 01:25:00 Test Item Value Reference Range Interpretation Comments Anti-Smooth <20 See Note: U Reference Range :<20 Muscle Ab NEGATIVE> O R = 20 (test code = POSITIVE Antibo dies ) recognizing act in are the main compon entof smooth muscle antibodies asso ciated withautoimmune liver disease. Actin antibodies aref ound in approximatel y 75% of patients withautoimmune hepatitis (AIH) type 1, approximatel y65% of patients wit h autoimmune cholangitis,chitra roxima tely 30% of pat ients with primary biliarycirrhosi s, and approximately 2 % of healthy people. High values are clos flako correlated with AIH type 1. ELIANA (test code Performing Lab = ELIANA) [facility] [address] [place] [address] Obdulia Ulrich MD, PhD, MARINA [facility] HospitalCeruloplasmin2021-03-24 14:07:00 Test Item Value Reference Range Interpretation Comments Ceruloplasmin (test code 39 mg/dL 18-36 H = 20190906) ELIANA (test code = ELIANA) Performing Lab *GIULIA [facility], [address] [place] [phone] Nereida Rocha MD Lab Interpretation (test Abnormal code = 80171-3) [facility] HospitalCeruloplasmin2021-03-24 14:07:00 Test Item Value Reference Range Interpretation Comments Ceruloplasmin (test code 39 mg/dL 18-36 H = 20190906) ELIANA (test code = ELIANA) Performing Lab *GIULIA [facility], [address] [place] [phone] Nereida Rocha MD Lab Interpretation (test Abnormal code = 33110-1) [facility] HospitalMitochondria M2 Antibody (IgG)2020-10-06 13:29:00 Test Item Value Reference Range Interpretation Comments Mitochondria M2 Ab 20.3 U See Note: H Reference (test code = 8507399) Range: NEGATIVE: < OR = 20.0EQUIVOCAL: 20.1-24.9POSITI VE: > OR = 25.0 ELIANA (test code = ELIANA) Performing Lab EZ [facility] [address] [address] Obdulia Ulrich MD, PhD, MARINA Lab Interpretation Abnormal (test code = 92935-6) [facility] Hospital[facility]ochondria M2 Antibody (IgG)2020-10-06 13:29:00 Test Item Value Reference Range Interpretation Comments Mitochondria M2 Ab 20.3 U See Note: H Reference (test code = 5341004) Range: NEGATIVE: < OR = 20.0EQUIVOCAL: 20.1-24.9POSITI VE: > OR = 25.0 ELIANA (test code = ELIANA) Performing Lab EZ [employer]) [address] [address] Obdulia Ulrich MD, PhD, MARINA Lab Interpretation Abnormal (test code = 56945-8) [facility] - Routine (Left Venipuncture) 2020-10-05 14:00:00 Test Item Value Reference Range Interpretation Comments Result (test code = No growth in 5 days 6463-4) [facility] - [facility]ine (Left Venipuncture) 2020-10-05 14:00:00 Test Item Value Reference Range Interpretation Comments Result (test code = No growth in 5 days 6463-4) [facility] HospitalBLOOD [id number] 14:00:00 Test Item Value Reference Range Interpretation Comments CULTURE (BEAKER) (test No growth in 5 days code = 1095) BLOOD [id number] 11:00:00 Test Item Value Reference Range Interpretation Comments CULTURE (BEAKER) (test No growth in 5 days code = 1095) Hepatitis B PCR, [id number] 20:15:00 Test Item Value Reference Range Interpretation Comments HBV PCR, Quantitative HBV DNA not detected HBV DNA not (test code = 26350-9) detected ELIANA (test code = ELIANA) This test uses a Real-Time Polymerase Chain Reaction (RT-PCR) methodology and was performed using MADONNA AmpliPrep/MADONNA TaqMan HBV Test, v2.0 ([employer] Reportable range for this assay is 20 - 170,000,000 IU per mL (1.30 - 8.23 Log IU/mL). Lab Interpretation Normal (test code = 56064-2) [facility] HospitalHep[facility] PCR, [id number] 20:15:00 Test Item Value Reference Range Interpretation Comments HBV PCR, Quantitative HBV DNA not detected HBV DNA not (test code = 46968-0) detected ELIANA (test code = ELIANA) This test uses a Real-Time Polymerase Chain Reaction (RT-PCR) methodology and was performed using [employer] AmpliPrep/MADONNA TaqMan HBV Test, v2.0 ([employer] Reportable range for this assay is 20 - 170,000,000 IU per mL (1.30 - 8.23 Log IU/mL). Lab Interpretation Normal (test code = 61336-7) [facility] HospitalHEPATITIS B PCR, [id number] 20:15:00 Test Item Value Reference Range Interpretation Comments HBV RESULT COMPONENT HBV DNA not detected HBV DNA not detected (BEAKER) (test code = 2701) This test uses a Real-Time Polymerase Chain Reaction (RT-PCR) methodology and was performed using [employer] AmpliPrep/MAD[employer]NA TaqMan HBV Test, v2.0 ([employer]Reportable range for this assay is 20 - 170,000,000 IU per mL (1.30 - 8.23 Log IU/mL).Hepatitis C PCR, [id number] 19:56:00 Test Item Value Reference Range Interpretation Comments HCV PCR, Quantitative [id number] See_Comment H [Auto mated (test code = 15576-7) messag e] The system which generated this result transmitted reference range : <15 IU/mL. The reference range was not used to interpret this result as normal/abnormal . ELIANA (test code = ELIANA) This test uses a Real-Time Polymerase Chain Reaction (RT-PCR) methodology and was performed using [employer] Ampliprep/MAD[employer]NA TaqMan HCV test kit version 2.0 ([employer] Reportable range for this assay is 15 - 100,000,000 IU per mL (1.18 - 8.00 Log IU/mL). Lab Interpretation Abnormal (test code = 00356-0) [facility] C PCR, [id number] 19:56:00 Test Item Value Reference Range Interpretation Comments HCV PCR, Quantitative [id number] See_Comment H [Auto mated (test code = 81458-3) messag e] The system which generated this result transmitted reference range : <15 IU/mL. The reference range was not used to interpret this result as normal/abnormal . ELIANA (test code = ELIANA) This test uses a Real-Time Polymerase Chain Reaction (RT-PCR) methodology and was performed using [employer] Ampliprep/MADONNA TaqMan HCV test kit version 2.0 ([employer] Reportable range for this assay is 15 - 100,000,000 IU per mL (1.18 - 8.00 Log IU/mL). Lab Interpretation Abnormal (test code = 59772-2) [facility] C PCR, [id number] 19:56:00 Test Item Value Reference Range Interpretation Comments HCV NUMERIC RESULT (BEAKER) [id number] IU/mL <15 H (test code = 2700) This test uses a Real-Time Polymerase Chain Reaction (RT-PCR) methodology and was performed using [employer] Ampliprep/MADONNA TaqMan HCV test kit version 2.0 ([employer]).Reportable range for this assay is 15 - 100,000,000 IU per mL (1.18 - 8.00 Log IU/mL).Anti-Nuclear Antibody (GAMAL) 2020-10-04 12:41:00 Test Item Value Reference Range Interpretation Comments GAMAL (test code = 28591-5) Negative Negative ELIANA (test code = ELIANA) Test performed by IFA method. Lab Interpretation (test Normal code = 05574-8) [facility] HospitalAnti-Nuclear Antibody (GAMAL)2020-10-04 12:41:00 Test Item Value Reference Range Interpretation Comments GAMAL (test code = 94546-7) Negative Negative ELIANA (test code = ELIANA) Test performed by IFA method. Lab Interpretation (test Normal code = 07333-6) [facility] HospitalANTI-NUCLEAR ANTIBODY (GAMAL)2020-10-04 12:41:00 Test Item Value Reference Range Interpretation Comments ANTI-NUCLEAR ANTIBODY (GAMAL) (BEAKER) Negative Negative (test code = 418) Test performed by IFA method.POC-Glucose [id number] 18:23:00 Test Item Value Reference Range Interpretation Comments POC-Glucose Meter (test 127 mg/dL 70-110 H : TE STED AT [facility] code = 1538) [address] [facility], [address] [address]: Hat Mender/Techni min ID = [id number] for Igbalajobi, She neto Lab Interpretation (test Abnormal code = 67521-8) [facility] HospitalPOC-Glucose [id number] 18:23:00 Test Item Value Reference Range Interpretation Comments POC-Glucose Meter (test 127 mg/dL 70-110 H : TE STED AT [facility] code = 1538) [address] [facility], 770 30: Hat Mender/Techni min ID = [id number] for Igbalajobi, She neto Lab Interpretation (test Abnormal code = 56039-9) [facility] HospitalPOCT-GLUCOSE [id number] 18:23:00 Test Item Value Reference Range Interpretation Comments POC-GLUCOSE METER 127 mg/dL 70-110 H : TESTED A T [facility] 6720 (BEAKER) (test code = [facility], 1538) [address]: Hat Mender/Techni min ID = [id number] for Katelynn Ramirez POCT-GLUCOSE [id number] 12:00:00 Test Item Value Reference Range Interpretation Comments POC-GLUCOSE METER 78 mg/dL 70-110 : [facility] (test code = [facility], 1538) [address]: Hat Mender/Techni min ID = [id number] for Kassandra Woods Hepatitis B core antibody, [id number] 10:45:00 Test Item Value Reference Range Interpretation Comments Hep B Core Total Ab (test Reactive Nonreactive A code = 40313-7) ELIANA (test code = ELIANA) Hat Mender ID - DBOperator ID - DBOperator ID - DB Lab Interpretation (test Abnormal code = 24708-5) [facility], [id number] 10:45:00 Test Item Value Reference Range Interpretation Comments Hep B Core Total Ab (test Reactive Nonreactive A code = 89044-8) ELIANA (test code = ELIANA) Hat Mender ID - DBOperator ID - DBOperator ID - DB Lab Interpretation (test Abnormal code = 03762-2) [facility]HEPAT[facility] CORE ANTIBODY, [id number] 10:45:00 Test Item Value Reference Range Interpretation Comments HEPATITIS B CORE TOTAL ANTIBODY Reactive Nonreactive A ([facility]) (test code = 497) Hat Mender ID - DBOperator ID - DBOperator ID - DBPOCT-GLUCOSE [id number] 08:50:00 Test Item Value Reference Range Interpretation Comments POC-GLUCOSE METER 83 mg/dL 70-110 : [facility] (test code = [facility], 1538) [address]: Hat Mender/Techni min ID = [id number] for Kassandra Woods Wijrv-7-rfyftskzeam5151-03-21 08:30:00 Test Item Value Reference Range Interpretation Comments A-1 Antitrypsin (test 189.40 mg/dL 90-200 code = 1825-9) ELIANA (test code = ELIANA) Hat Mender ID - DBOperator ID - DBOperator ID - DB Lab Interpretation (test Normal code = 71164-5) [facility] HospitalAlpha-1-luqihsqjmah9224-91-14 08:30:00 Test Item Value Reference Range Interpretation Comments A-1 Antitrypsin (test 189.40 mg/dL 90-200 code = 1825-9) ELIANA (test code = ELIANA) Hat Mender ID - DBOperator ID - DBOperator ID - DB Lab Interpretation (test Normal code = 60125-5) [facility] HospitalALPHA-1-UPDCMVWEZBU8303-41-80 08:30:00 Test Item Value Reference Range Interpretation Comments ALPHA-1 ANTITRYPSIN (BEAKER) 189.40 mg/dL 90.00-200.00 (test code = 502) Hat Mender ID - DBOperator ID - DBOperator ID - DBHepatitis A antibody, IgG 2020-10-03 07:01:00 Test Item Value Reference Range Interpretation Comments Hep A IgG (test code = Reactive Nonreactive A 05620-3) ELIANA (test code = ELIANA) Hat Mender ID - DB Lab Interpretation (test Abnormal code = 81540-1) [facility]Hep[facility] antibody, [id number] 07:01:00 Test Item Value Reference Range Interpretation Comments Hep A IgG (test code = Reactive Nonreactive A 31616-3) ELIANA (test code = ELIANA) Hat Mender ID - DB Lab Interpretation (test Abnormal code = 73063-9) [facility] HospitalHEB[facility] PADUCAHTIS A ANTIBODY, [id number] 07:01:00 Test Item Value Reference Range Interpretation Comments HEPATITIS A IGG ANTIBODY (BEAKER) Reactive Nonreactive A (test code = 2797) Hat Mender ID - DBHepatitis C sxkrphlj4490-35-97 06:59:00 Test Item Value Reference Range Interpretation Comments Hepatitis C Ab (test code = Reactive Nonreactive A 48208-7) ELIANA (test code = ELIANA) Hat Mender ID - DB Lab Interpretation (test Abnormal code = 74278-2) [facility] HospitalH[facility] hospitaltis C wztmykcz0511-53-11 06:59:00 Test Item Value Reference Range Interpretation Comments Hepatitis C Ab (test code = Reactive Nonreactive A 68841-5) ELIANA (test code = ELIANA) Hat Mender ID - DB Lab Interpretation (test Abnormal code = 45146-3) [facility] HospitalHEPATITIS C [id number] 06:59:00 Test Item Value Reference Range Interpretation Comments HEPATITIS C ANTIBODY (BEAKER) (test Reactive Nonreactive A code = 367) Hat Mender ID - [facility]BBaspring [facility] hospital Metabolic Bcapx0853-83-01 06:38:00 Test Item Value Reference Range Interpretation [...] (test code = 7.8 mg/dL 8.4-10.2 L 46702-9) EGFR (test code = 39 mL/min/1.73 sq [place] [address]-2) NOT ACCURATE CREATININE CLEARANCE IN PREDICTING GLOMERULAR FILTRATION RATE . ESTIMATED GFR I S NOT APPLICABLE FOR DIALYSIS PATIENTS. ELIANA (test code = ELIANA) Hat Mender ID - EDASI Lab Interpretation Abnormal (test code = 71311-4) [facility] HospitalBilirubin, gymfmg3903-58-45 06:38:00 Test Item Value Reference Range Interpretation Comments Bilirubin, Direct (test 0.2 mg/dL 0.1-0.5 code = 1968-01) ELIANA (test code = ELIANA) Hat Mender ID - EDASI Lab Interpretation (test Normal code = 31316-1) [facility] HospitalBasi Metabolic Asqda4646-79-79 06:38:00 Test Item Value Reference Range Interpretation [...] (test code = 7.8 mg/dL 8.4-10.2 L 61221-3) EGFR (test code = 39 mL/min/1.73 [place] [address]-4) NOT ACCURATE CREATININE CLEARANCE IN PREDICTING GLOMERULAR FILTRATION RATE . ESTIMATED GFR I S NOT APPLICABLE FOR DIALYSIS PATIENTS. ELIANA (test code = ELIANA) Hat Mender ID - EDASI Lab Interpretation Abnormal (test code = 44843-4) [facility] HospitalBilirubin, ssbsmr6846-96-73 06:38:00 Test Item Value Reference Range Interpretation Comments Bilirubin, Direct (test 0.2 mg/dL 0.1-0.5 code = 1968-7) ELIANA (test code = ELIANA) Hat Mender ID - EDASI Lab Interpretation (test Normal code = 11287-5) [facility] HospitalBILIRUBIN, [id number] 06:38:00 Test Item Value Reference Range Interpretation Comments BILIRUBIN DIRECT (BEAKER) (test 0.2 mg/dL 0.1-0.5 code = 706) Hat Mender ID - EDASIBASIC METABOLIC [id number] 06:38:00 Test Item Value Reference Range Interpretation [...] S NOT APPLICABLE FOR DIALYSIS PATIEN TS. Hat Mender ID - EDASIHepatitis B surface [id number] 06:14:00 Test Item Value Reference Range Interpretation Comments Hep B S Ab (test code <8.0 See_Comment [Auto mated = 86935-2) message] The system which generated this result transmit altagracia reference range : <8.0 mIU/mL. Th e reference range was not used to interpret this result as normal/abnormal . ELIANA (test code = ELIANA) Hat Mender ID - DB Lab Interpretation Normal (test code = 77362-3) [facility] HospitalHepatitis B surface doncsplu1873-20-33 06:14:00 Test Item Value Reference Range Interpretation Comments Hep B S Ab (test code <8.0 See_Comment [Auto mated = 97255-0) message] The system which generated this result transmit altagracia reference range : <8.0 mIU/mL. Th e reference range was not used to interpret this result as normal/abnormal . ELIANA (test code = ELIANA) Hat Mender ID - DB Lab Interpretation Normal (test code = 14037-7) [facility] HospitalHEPATITIS B SURFACE [id number] 06:14:00 Test Item Value Reference Range Interpretation Comments HEPATITIS B SURFACE ANTIBODY < mIU/mL <8.0 (BEAKER) (test code = 647) Hat Mender ID - DBHepatitis B surface gfktkfl5486-87-43 06:13:00 Test Item Value Reference Range Interpretation Comments HBsAg Screen (test code Nonreactive Nonreactive = 5195-3) ELIANA (test code = ELIANA) Specimen is considered negative for HBsAg. Lab Interpretation (test Normal code = 72917-2) [facility] HospitalAlpha fetoprotein (AFP), tumor zyfxjm1188-33-08 06:13:00 Test Item Value Reference Range Interpretation Comments Alpha-Fetoprotein (test code 2.1 ng/mL <10.0 = 1834-1) ELIANA (test code = ELIANA) Hat Mender ID - DB Lab Interpretation (test Normal code = 54750-0) [facility] HospitalHepatitis B surface snxboxj1392-60-82 06:13:00 Test Item Value Reference Range Interpretation Comments HBsAg Screen (test code Nonreactive Nonreactive = 5195-3) ELIANA (test code = ELIANA) Specimen is considered negative for HBsAg. Lab Interpretation (test Normal code = 49145-9) [facility] HospitalAlpha fetoprotein (AFP), tumor mvpcir4369-65-60 06:13:00 Test Item Value Reference Range Interpretation Comments Alpha-Fetoprotein (test code 2.1 ng/mL <10.0 = 1834-1) ELIANA (test code = ELIANA) Hat Mender ID - DB Lab Interpretation (test Normal code = 22811-3) [facility] HospitalHEPATITIS B SURFACE [id number] 06:13:00 Test Item Value Reference Range Interpretation Comments HEPATITIS B SURFACE ANTIGEN (2) Nonreactive Nonreactive (BEAKER) (test code = 2585) Specimen is considered negative for HBsAg.ALPHA FETOPROTEIN (AFP), TUMOR MARKER 2020-10-03 06:13:00 Test Item Value Reference Range Interpretation Comments ALPHA-FETOPROTEIN (BEAKER) (test 2.1 ng/mL <10.0 code = 1094) Hat Mender ID - DBProthrombin time/WUN0401-27-20 05:06:00 Test Item Value Reference Interpretation Comments Range Protime (test code = 14.4 See_Comment H [Autom ated 8352-2) message] The system which generated this result transmitted reference range : 11.9 - 14.2 seconds. The reference range was not used to interpret this result as normal/abnormal . INR (test code = 1.16 See_Comment [Automated 1681-6) message] The system which generated this result [...] valves. Lab Interpretation Abnormal (test code = 75413-8) [facility] HospitalProthrombin time/[id number] 05:06:00 Test Item Value Reference Interpretation Comments [...] valves. Lab Interpretation Abnormal (test code = 86703-6) [facility] HospitalPROTHROMBIN TIME/ABZ9726-59-00 05:06:00 Test Item Value Reference Range Interpretation Comments PROTIME (BEAKER) 14.4 seconds 11.9-14.2 H (test code = 759) INR (BEAKER) (test 1.16 See_Comment [Automat ed message] code = 370) The system [employer] generated this result transmitted ref erence range: [...] 8.8 See_Comment [A utomated message] The system [employer] generated this result transmitted ref erence range: 3.5 - 10 .5 K/L. The refe rence range was not u sed to interpret this result as normal/abnor mal. RBC (test code = 789-8) 2.56 See_Comment L [Au tomated message] The system [employer] generated this result transmitted ref erence range: 4.63 - 6 .08 M/L. The refe rence range was not u sed to interpret this result as normal/abnor mal. MCHC (test code = 786-4) 31.8 See_Comment L [A utomated message] The system [employer] generated this result transmitted ref erence range: [...] See_Comment [Aut omated message] 777-3) The system [employer] generated this result transmitted ref erence range: 150 - 45 0 K/CU MM. The referen ce range was not u sed to interpret this result as normal/abnor mal. MPV (test code = 10.2 fL 9.4-12.4 80918-9) nRBC (test code = 413) 0 See_Comment [Aut omated message] The system [employer] generated this result transmitted ref erence range: 0 - 0 /1 00 WBC. The refere nce range was not u sed to interpret this result as normal/abnor mal. Lab Interpretation (test Abnormal code = 06823-5) [facility] with platelet count + automated [id number] 04:58:00 Test Item Value Reference Range Interpretation Comments WBC (test code = 6690-2) 8.8 See_Comment [A utomated message] The system [employer] generated this result transmitted ref erence range: 3.5 - 10 .5 K/L. The refe rence range was not u sed to interpret this result as normal/abnor mal. RBC (test code = 789-8) 2.56 See_Comment L [Au tomated message] The system [employer] generated this result transmitted ref erence range: 4.63 - 6 .08 M/L. The refe rence range was not u sed to interpret this result as normal/abnor mal. MCHC (test code = 786-4) 31.8 See_Comment L [A utomated message] The system [employer] generated this result transmitted ref erence range: [...] See_Comment [Aut omated message] 777-3) The system [employer] generated this result transmitted ref erence range: 150 - 45 0 K/CU MM. The referen ce range was not u sed to interpret this result as normal/abnor mal. MPV (test code = 10.2 fL 9.4-12.4 89879-9) nRBC (test code = 413) 0 See_Comment [Aut omated message] The system [employer] generated this result transmitted ref erence range: [...] H [Aut omated message] 670) The system [employer] generated this result transmitted ref erence range: 1.78 - 5 .38 K/L. The refe rence range was not u sed to interpret this result as normal/abnor mal. # Lymphs (test code = 0.86 See_Comment L [Auto mated message] 414) The system [employer] generated this result transmitted ref erence range: 1.32 - 3 .57 K/L. The refe rence range was not u sed to interpret this result as normal/abnor mal. # Monos (test code = 0.72 See_Comment [Autom ated message] 415) The system [employer] generated this result transmitted ref erence range: 0.30 - 0 .82 K/L. The refe rence range was not u sed to interpret this result as normal/abnor mal. # Eos (test code = 416) 0.12 See_Comment [Au tomated message] The system [employer] generated this result transmitted ref erence range: 0.04 - 0 .54 K/L. The refe rence range was not u sed to interpret this result as normal/abnor mal. # Baso (test code = 417) 0.02 See_Comment [A utomated message] The system [employer] generated this result transmitted ref erence range: 0.01 - 0 .08 K/L. The refe rence range was not u sed to interpret this result as normal/abnor mal. Immature 1 % 0-1 Granulocytes-Relative (test code = 2801) Lab Interpretation (test Abnormal code = 22605-6) [facility] HospitalCB (Hemogram only)2020-10-03 04:58:00 Test Item Value Reference Range Interpretation Comments WBC (test code = 6690-2) 8.8 See_Comment [A utomated message] The system [employer] generated this result transmitted ref erence range: 3.5 - 10 .5 K/L. The refe rence range was not u sed to interpret this result as normal/abnor mal. RBC (test code = 789-8) 2.56 See_Comment L [Au tomated message] The system [employer] generated this result transmitted ref erence range: 4.63 - 6 .08 M/L. The refe rence range was not u sed to interpret this result as normal/abnor mal. MCHC (test code = 786-4) 31.8 See_Comment L [A utomated message] The system [employer] generated this result transmitted ref erence range: [...] See_Comment [Aut omated message] 777-3) The system [employer] generated this result transmitted ref erence range: 150 - 45 0 K/CU MM. The referen ce range was not u sed to interpret this result as normal/abnor mal. MPV (test code = 10.2 fL 9.4-12.4 68436-8) nRBC (test code = 413) 0 See_Comment [Aut omated message] The system [employer] generated this result transmitted ref erence range: 0 - 0 /1 00 WBC. The refere nce range was not u sed to interpret this result as normal/abnor mal. Lab Interpretation (test Abnormal code = 78304-5) [facility] with platelet count + automated [id number] 04:58:00 Test Item Value Reference Range Interpretation Comments WBC (test code = 6690-2) 8.8 See_Comment [A utomated message] The system [employer] generated this result transmitted ref erence range: 3.5 - 10 .5 K/L. The refe rence range was not u sed to interpret this result as normal/abnor mal. RBC (test code = 789-8) 2.56 See_Comment L [Au tomated message] The system [employer] generated this result transmitted ref erence range: 4.63 - 6 .08 M/L. The refe rence range was not u sed to interpret this result as normal/abnor mal. MCHC (test code = 786-4) 31.8 See_Comment L [A utomated message] The system [employer] generated this result transmitted ref erence range: [...] See_Comment [Aut omated message] 777-3) The system [employer] generated this result transmitted ref erence range: 150 - 45 0 K/CU MM. The referen ce range was not u sed to interpret this result as normal/abnor mal. MPV (test code = 10.2 fL 9.4-12.4 31631-7) nRBC (test code = 413) 0 See_Comment [Aut omated message] The system [employer] generated this result transmitted ref erence range: [...] H [Aut omated message] 670) The system [employer] generated this result transmitted ref erence range: 1.78 - 5 .38 K/L. The refe rence range was not u sed to interpret this result as normal/abnor mal. # Lymphs (test code = 0.86 See_Comment L [Auto mated message] 414) The system [employer] generated this result transmitted ref erence range: 1.32 - 3 .57 K/L. The refe rence range was not u sed to interpret this result as normal/abnor mal. # Monos (test code = 0.72 See_Comment [Autom ated message] 415) The system [employer] generated this result transmitted ref erence range: 0.30 - 0 .82 K/L. The refe rence range was not u sed to interpret this result as normal/abnor mal. # Eos (test code = 416) 0.12 See_Comment [Au tomated message] The system [employer] generated this result transmitted ref erence range: 0.04 - 0 .54 K/L. The refe rence range was not u sed to interpret this result as normal/abnor mal. # Baso (test code = 417) 0.02 See_Comment [A utomated message] The system [employer] generated this result transmitted ref erence range: 0.01 - 0 .08 K/L. The refe rence range was not u sed to interpret this result as normal/abnor mal. Immature 1 % 0-1 Granulocytes-Relative (test code = 2801) Lab Interpretation (test Abnormal code = 78806-8) [facility] W/PLT COUNT & AUTO [id number] 04:58:00 Test Item Value Reference Range Interpretation [...] 0-0 (BEAKER) (test code = 413) POCT-GLUCOSE [id number] 21:32:00 Test Item Value Reference Range Interpretation Comments POC-GLUCOSE METER 128 mg/dL 70-110 H : TESTED A T [facility] 6720 (BEAKER) (test code = [place], 1538) [address]: Hat Mender/Techni min ID = [id number] for Lien Mansfield Vancomycin level, [id number] 18:09:00 Test Item Value Reference Range Interpretation Comments Vancomycin Tr (test code 6.3 ug/mL 10-20 L = 4092-3) ELIANA (test code = ELIANA) Hat Mender ID - DBIf vancomycin trough level > 20 mcg/mL, hold next vancomycin dose, and contact MD and pharmacist. Lab Interpretation (test Abnormal code = 70843-6) [facility] HospitalVancomycin level, [id number] 18:09:00 Test Item Value Reference Range Interpretation Comments Vancomycin Tr (test code 6.3 ug/mL 10-20 L = 4092-3) ELIANA (test code = ELIANA) Hat Mender ID - DBIf vancomycin trough level > 20 mcg/mL, hold next vancomycin dose, and contact MD and pharmacist. Lab Interpretation (test Abnormal code = 91932-0) [facility] HospitalVANCOMYCIN LEVEL, [id number] 18:09:00 Test Item Value Reference Range Interpretation Comments VANCOMYCIN TROUGH (BEAKER) (test 6.3 ug/mL 10.0-20.0 L code = 522) Hat Mender ID - DBIf vancomycin trough level > [...] PERCENT (BEAKER) (test code = 2801) POCT-GLUCOSE [id number] 17:36:00 Test Item Value Reference Range Interpretation Comments POC-GLUCOSE METER 124 mg/dL 70-110 H : TESTED A T [facility] 6720 (BEAKER) (test code = [place], 1539) [address]: Hat Mender/Techni min ID = [id number] for Jaswinder Jefferson Tissue [id number] 14:24:00 Test Item Value Reference Range Interpretation Comments Case Report (test code Surgical Pathology = 104) Report Case: [id number] Authorizing Provider: Sarkis Laboy, Collected: 10/01/2020 09:43 AM Ordering Location: [place] [address] ccu Received: 10/01/2020 01:48 PM Pathologist: Pa Peters MD Specimens: A) - Biopsy, Gastric, random biopsy B) - Gastric, gastric erythema biopsy DIAGNOSIS (test code = q9nprRWzAIMhe4qnFRUprY 3220) FuZzEwMzNcZnRuYmpcdWMx IHtccnRmMVxlcGljOTIwMl tdbePpGEPmcIOfF0Mklqse ETolRB5eWB3lxGipdIThbX FfSZBlYlGxi6cks060hMSm g7dlUTRCmoimbIb4aLgvR0 8xm5C9PsucN80yrOVoMPgb bGFpblxmczIwIEEuIFNUT0 1BX6vwEFTXQzARWNBDTwKI Y7HRMVhVHJ0OJ62CDYxfOa lVHQHWZRA0JLMphoi4JGHp ORDLNnACSCblGSQMG3CUBO dJVEggTUlMRCBDSFJPTklD JNcGIMJQPHEDRGvKI4PZOF WJWzZIQrVbZs1WUHmqMS8C FUGQIF0KIDFRGFCBHDtXR1 eEMMQxtay2JNTcDJYIFTsP AFjHSO1HE99YGOKYVRUHNF 4MVBLqF0dUW47YIpSUJlGE VElWRSBHQVNUUklUSVMgV0 mWUHUJJ1COPLZMH8GRMtpD AVgbZWJgpFKuTI4mW5AWCH yIPxOCNTDQKtabK7RMNW3r BxXRJBFUAvKlDj3QVGupJD ABZK9YCMDVSXpGEC3ZL9SL GERBL7vqUNJdtJHbGI0mLx APAKKSJiExFp1QKLHOB5DL IZEIONKWMfODRIAPAB6EUD FwaKLkDODxiqWGVpUYKU0B QUNILCBFUllUSEVNQSwgRU 7LJ8TAS7UIGaGWAHRMI1AU URYHU7XFSUTXLbpgAMRslJ YbVB4hZ7jPQdPATmQEFZAL S8UpH0uFZMXAWZnJDDHGOu 0WMVIrKF2MO5AEUaDsO0GM VFJJVElTIEFORCBWRVJZIE UNF7PVBHAWNEcJHRUQGLVv ciAgICAgICAgICAgICAgLS PUCG9WVfAyZBRENRXEOYZY G79DHSTQYX0HYTVBLLPAXG JUTFkgREVOVURFRCBXUElU LDWHOPKFWRSsips0TBNsFX BXQVJUSElOIFNUQVJSWSBT VEFJTiBORUdBVElWRSBGT1 AtRD8uBGdMP5YDIOqIG4Rp W9CIWQ6PO98SOCKnmuy7KK CaVRAZTCeUYZsTSVQOY1Tt OX8WPKROAP0YRXJPBEAARR wTR0xHOHJJDBTVHPEIFDPa Z4QtY5UMD9yNW57XANMskd 52DJQ6TtXst4A5EPV5DCPo OJRge2qvODQreJTyXoIgYj NcZnRuYmpcdWMxXGRlZmYw m9rex774eQZtl5fdVHRmPv H2zWFqSTDwiPIdR590AGNz JCdzu8qbu2OxRSZadQXgm3 D2EKGXyrhldMy2rCzfU85l b2H1NwckC8jcKGUaSYSwW4 VcNE6sOTSeMug6FFU3GSI8 ATRfLSDaY0RqND3oSZNhnJ OzXIy3u4ossLzuXYYzTYQ9 u4soNWidglClBR5qti9waB d9t7mbrbRaTISrIBOsvUVB RIXzD8AjpEooRx4lsPz3xN miTvroBQB9Eex2KC3inf31 ony4hUjqKPHlbsohPsX4EF sfLYCnlfrhPEp8HPnqLVFd oRS6IBQosPZxA0DpONJxTT 5pgdt7DGB5GQpeLMTbJtF0 NDBcaGVhZGVyeTcyMFxmb2 65NBP0KvZmUS3gL2Twf3D5 sA6rmCEeTOWhrMUhAsTnBO Duaj5ypPLfZEpkr7UeBKZ1 maM5tOBugSBhXMXrMwK7JI nvSN5eqz66QKNwVNQ5kf8z bGNccGdicmRyaGVhZFxwZ2 HzSQTvg525UBPsU7LdOPOz x5K4teAoLhLzNXFntGC0wf A5TFEoVW9fxzfcz7anLEen LArmSAIfonE5vjA0BUKlqR ItY1KmnC6yHTJqNH6klxso w6udRIQ8OTylSLDbMYD1Zr VpCGHco2Ibkgh9AdJzi1Iu kTLdCJatA52fr140LTFwak UnR1dldWUzmkwxgLLubtdw DVzoiqR4VGHhCIuobvlcRK IzKMihD0noTcJbLCRmjDgd QXegj0LzXQLtPZNbAdQgrS YhITDoQum5RLGczFNkPNLg TrByM3uedfhzJgGGKHQxr2 utY4qzjYDIpEFiX9OfHCfe zvSgTFosOBccCRFpBOS8EM 91YOwuPPAasp61 CPT Code(s) (test code m3zvbXFuHOEczJT6WiOhRL = 3353) Wql5bsk1AmbRCvxCPoHJbw kYMqhgQeky67eOD2gX50RP 2gSTQhYmV5VPVxivH8Dyr9 NQGjEFXwuYHqB120q9zuz6 cnnyWvfOG9qOoxGIOuOEIi YWluXGZzMjAgODgzMDUgWC PzNGT6ESMnYsBMAncnHCL9 CLINICAL HISTORY (test k2wvtDWvLVAbgZD1IyHyCE code = 3356) Smw6soj0FyiNJcqTKeMLrg bYSqpqPosy96tTO2lE72EY 9uSJHpDbL6ICLwajQ2Prr0 JFFgWPErvOKmL614s1ynf5 tvzaAxzTM6eOrlVFAxCYMr JTapAHDnMcTnrZMbKU3wHO Bhcn0= SPECIMEN SOURCE (test o1nesBImDVJcwGO9LfRdQF code = 3377) Bqf9mqv9KteWIacEAbMOir kXPrpkPvbq94zZN1lW73HP 0dKAUhWqQ9JWSwzgE6Zzv9 OZXeOWOhbBAqA349y2usm7 zikzRlrEC6gEncDQKtPNYj YStxMIVtOoJgMK9jCBgbx3 IeyOJzfHpnSBFRLeJkQ9Rk wMRpA8poBZJ0 GROSS DESCRIPTION (test n4wzdWVdOZMwrURxBgOdAU code = 3366) BnBCHsa6xqYCYiaNSfAnPt MzNcZnRuYmpcdWMxXGRlZm Mav0tzo136pCHkv9xzYEUc LsK8iGLpAIFpaDSeA697j5 ffh8btpjBpnQP1QBQiHXI5 KOejfgYzwsS8XIadwHEnGa A6NXmllbAvXRonkkKzolJw Abl8KCNzW578WDA2nEmgv7 uoKKB0YCGbCITaCdEyNi9u kQNhP032ZADnKDZVCKKfnT l0DOFdieIorrGlzHIMj357 F984h1vjNOZhygOcaJrLei cud0hjE113RUYumIVjvgHm OyMjCYKdzSGedXN7QWYvRO 2dzjyyWiPdFJ2forvnDlEc WJ3kgtg0ObOoLH3ufmruTc HsVRhbYSDtbruePZSea0Vg qcxbFX2cD7Ucw1F3pL4vdK XlIMWxbMLxXwVaCVVece3o iSWhKNzbk3GfZNJ1diT1bW FpqYSgPKVoPL42Ltren5Vc GkosAZP8CGGhveScv9Trl2 wuYlObqlPjZ4taV2LjHLUo TRAbJRApEdXubkPbt5Bry2 RlmSKtmMn6b3tfQHRdISLy pQlry7qcCQV4ZIEvN6M6dN Tgn0eqQDfgCBTwxVG0bhux KSecYLLecrC5hnqkJMieUO AdlSD3ubfcAGohBYAzXpE6 fqfdIXyaULXiWMC0FVxcm8 56SKD8RZoyAquvHByhXZZa bmNvbnRccGduZGVjXHBsYW luXHBsYWluXGYwXGZzMjRc mTyhrEnebW6bDuBhOxRkBX jyGO6pMOHhJ4xtqCYfVKDi DUTlS9foDtVwtA0jyMfkLR xmczIwIEEuICBSZWNlaXZl KWYxpwMjm4JuPQmndeQtUZ BvaFSlJJDrGHRhGCKrGP31 O7EqjkCrKFzoQVDxSWOfuZ 6xMZ03gDGbscWcplIjAhkb o6ZqcQPpHmfduNF5DfUlpl NcLSS9MF8spWpourF0xWWy tQQoLnUbI97fgmDjKX6tYJ K1jcymKjN8kIV3bzFzXgHn V77gbP7zI1OiNHUxt4NvTY euEL8kiU0bQXavtRKaVKDi QPEygWa6KNQvGPEkveAgb6 XbgLn1fJNnNBeoWAXqxY4k jW0rGIHxNSRwqhbaHOJfSa 0zLBPeT0NcwlJoVMovLJLm ky3fiLzrVHryKdFwUVHhmP mtJNVbiAmtncXiijUdGP1r XNWnE4Aeu6Exa52atsNrKz IuPLWvGYUjG0HkmBMxWkHg aXMgYSAwLjIgeCAwLjIgeC PyOzEbG41fgJKnKDTrkkcr yKupt6IhMEEqTRbzDZ57DG doaWNoIGlzIGZpbHRlcmVk NWXlDVYkvWWblLI5ENGheH 8asV04oiQjkpMQKH7xvXOy LEDjjlDIaPzjyyOSyrd4DF xsZXMsIFBBLCBIVCAoQVND UClccGFyfQ== MICROSCOPIC DESCRIPTION a5pzaYZoJRFxpKT9BnLxXE (test code = 3371) Cuj4osk5XqlQKlyYLmFEwn qSKukbYeis06iAI5bE06CB 3fKRXiXbZ2KZElwqJ3Yoc2 OKBiAWVzjEQbT362l6agc3 psbhFdmCM0oCjjHKJyZDSw LUdrXRJuZbPoXWKqWe4vwZ VkLlxwYXJ9 SPECIAL STUDIES (test p4qilHPkWWLtx1meOYEeiH code = 3376) FuZzEwMzNcZnRuYmpcdWMx WVojacBwHExvx7ZzU2BgYr AwMFxhbnNpXGRlZmxhbmcx YXQiQKM1doUcCTRqYHlrUK PqQEiaVz6aqLCbdFalIvZt XQXnc2vizuVBwviutWw7u1 mfOLLzJxG3bUPgHZlsG5tn mmQfbVSoE7BdgEUejHd3t3 iwHdIbCuA8oFCdCRacK2ap xaKdjNBmRLSqWRd2wJ28QY EuaS9wjFXyXHmcbsYjAyJ5 AJopNRTbJpW6LMNhoPJhDD TyV8glCKYfKJsvRTRnTXhn jLGeVBM4tMggz9A5pLNvkG BqeEopEbGlMgNgZwGLu8Jr UFy2nMmfU4BxMCGvNvS7pK QgUGFyYWdyYXBoIEZvbnQ7 nSxxisJvj71toVEnURKfOP LfKzXskXinRFQqMQJIk0Px yScaQHN1qVb6vXxnXctwIP X8Uyn1SL9idh32zyc2dElx JDWusrnjAcA3HHreYQXgqn uuYDz3SEqtQNZbbSG7CROs sGZzW4BmCAWiLB0iqfe8OR T8WOmsPNCpSgL5KGTjoOLy LILvrFaaZSpeu238OJX2Jl WqTZ0eP0Jkb8F2cY9svVLh LYVvuSDwLjAyTARbtu0llQ BdZLzwy7JzERP0emB4uEBa sGMoBDEnZN84Bzuxf2OcIs ccj1ItT70vnEJ1MIuax9cq TP9zFgW5goIrTRmib9gcaF 8mZiB7LTvlOJ7wGZ5dLFCz pC9ntkcgEJWqFgEwhryeYU KevQaezmCiCl0qfNumPWM0 LXwfM9niyB0lZvS9SJhfX8 vcxF0zVTe4PFoqgSE7RORt iE8aLL9djytiz7tlLAguII ylRDPcpnL7ttT9CIQsgMUo U0RhmT3pVUFdCW3xbnzmu0 qaMLP0RZxdZMUpFAN6JxTc GOXnb5Bwyco4PnAqw3SeuQ EjWNfhS75vu212GYPvanEf A3eyqKMgxfrwbDThrdwbFQ rhstH1NRHsPCAhIVwxSZMg XGZzMjJcbGFuZzEwMzNcaG ljaFxmMVxkYmNoXGYxXGxv S6dcHxPeZ7DySRYbCvKuIZ xxXKzkiQKfiDGvlXY6dV2g DY8uNUHpjDMiG5DyYNBzhy UcnETgNQY1nRWizGEhBX4e AUdfwCVsw7qwi0VuW7nczK cwqGA6SY3gZYNtDTZaRBca o1ZkcH7mPtdgmDRzkrnpHM xmczIyXGxhbmcxMDMzXGhp V9hrAxMxHEMrbWfvIZayw5 NoXGYxXGNmMlxmczIyXGx0 cmNoXHBhclxwYXJccGxhaW 5jPxKwBuYzSryfER3bIXOx U2ognKLeVQZyJGNoZ0bfJo RqoB3abUzlIFwnIrYxGaCc YhHEb440bb4oJHKocFTswa YSyCKgmO7qDWfmDDsaIBkd zICkBKvzr8ilYISoz7x1bT KiASChdhUrx3xoJPdoohVq RLNcxFDdvLKxWIHui59mIV sgaNaayZljFLVzc4VvkGql c3CkTvNmVPyly0AkG46dtV JvbCBzbGlkZXMgcnVuIGFs b78br4swHMUiPxD8iJNzmE T6gYTgnOBrg5FijFtkWUHo m8clOZWpke5yzemzyNFhd0 UfcB2htpxpAOtvwTGefdQr HBCrh1l0oJAgYLCtGWPjOB swcRd2ZJMgy850hq9qemP8 oAXiHAW3TUmoLRYtTQWtux UgZXZhbHVhdGVkXHBsYWlu XGYxXGZzMjJcbGFuZzEwMz NcaGljaFxmMVxkYmNoXGYx QVrtD8toDcCpN4FsITOkNt IamNItU5xapLFuHDHbQOgg XGYxXGZzMjJcbGFuZzEwMz NcaGljaFxmMVxkYmNoXGYx BAwcL2ptAfYmR5YvTMPuGo IgIFxwbGFpblxmMVxmczIy MKtqueyhCSIrGHrmL6xxFc HxEOQnsYseWLzod2WqCFZy KWGlBmqynnFxVOl1mlOkSM BhclxwbGFpblxmMVxmczIy EOvomzqmJGRwKOpbK1kaIz ZoJMGwhFeuJBkml0UgHLZh XGNmMlxmczIyIEltbXVub2 qkj6GzD5rmvVmkuKD7AIFn D0ggwSUpdAI4RBN3qM2aIV rmtkOhXCPuu3NvOTLzODIt HvW6hJ0kJCM6HnVCnTrxGD BsYWluXGYxXGZzMjJcbGFu ZzEwMzNcaGljaFxmMVxkYm WqOIDaFWmwP0chTcVeL8Sh QMAkVzWyxRkwOYnzASw9Lz xwbGFpblxmMVxmczIyXGxh skdfBYFxRClxA0lsChEcQH IyaQgiOLqra8QeVIFtDEUl MlxmczIyIHMgTWVkaWNhbC MBJZ65DEAoBWWlqOyrcQ0a dXHOGXCdnxT8e9I6VIoxHI UdTOb0VYvckiOqMZGssV4i KQGfFA7sBZb6bcFwOHKyt2 IvVP9gFFNfgBMnVAG8KQWo r0BmD9Hwd3NkLUYxFZRnex 1gvpAvYoZTnWMiDRYuff45 UNYxLR8cL0pmKMXhDLXmiv OdxYKdt0SiFHYieVS7aSXp MN3PLqQHt82aGYDgAATIhz VyISKaiNjmzUH3ucU1sL5y LiBUaGUgRkRBIGhhcyBkZX Hwcm4poyCmNKYjYEXxq6Go sKPpsSDlzvQuX3Egk2StPQ Uunf79QJaxhFLjes81RR2z T3Zgx8EyiG9kKJneQRBdy3 VzmUUwfEGmKLKlb4JpG4yx zalkFQlumESmaI3qQKOsVI j2KVBin1GeILKrp3TiJmBy dmTxKIDaFNDbVECkbZ60HS E6lDkckZrvkjBbNV4wSDWt tlToGVNbORQvjQ7iOIjfmw XaXNMcfwH7y9L1HXbjOLXn fiVtCfmhKXI2lePlsdJ9lO UhN3klpajyQIbsFBGmd4Ja jO5wdHHEtSMgf0LqaZVjuN UUmXZyRB9yqdIgRQ9hTFF0 ODggKENMSUEtODgpIGFzIH S9XIeeFejbBYM9fwYmQUSw a3SiXPwbM0qiR63xvDyatR q7rCIatFmpcVHkeYRkGWUe vdS5e7V1RXHdn9EbsixjEQ BsYWluXGYyXGZzMjJcbGFu ZzEwMzNcaGljaFxmMlxkYm AtXPSnWMgjO8mnQjIbSoIv VvxmLZY8kG== Gross assessment was [facility] performed at ([facility], = 2777) Department of Pathology, [address] [place] [address], Technical component was [facility] performed at ([facility], = 2778) Department of Pathology, [address] [place] [address], Professional component [facility] was performed at ([facility], code = 2779) Department of Pathology, [address] [place] [address], [facility] [id number] 14:24:00 Test Item Value Reference Range Interpretation Comments Case Report (test code Surgical Pathology = 104) Report Case: [id number] Authorizing Provider: Sarkis Laboy, Collected: 10/01/2020 09:43 AM Ordering Location: [address] Received: 10/01/2020 01:48 PM Pathologist: Pa Peters MD Specimens: A) - Biopsy, Gastric, random biopsy B) - Gastric, gastric erythema biopsy DIAGNOSIS (test code = [id number] 3220) FuZzEwMzNcZnRuYmpcdWMx IHtccnRmMVxlcGljOTIwMl cfydVdFQMlmXFdZ6Nkqcay EIiuWY0lFW3buKmxhCCpiK YgAFZiLdRsc1ivm933fRFl y1jyZJQRcarbqYi7uVukM4 4mg6Y3KyblA87mbDWaRAwm bGFpblxmczIwIEEuIFNUT0 1CU6cyXIWTVoQSSNQHQaMQ W9HZMKkURW4DH29OIUvlLy cEUYROYBD8LXCptkf3MOFp JAHFOnTBXMnpMVQKY2KBRG dJVEggTUlMRCBDSFJPTklD SRaIKTKEWCDSGGlMB8YXGP TXRdPHEuVyAi0FWMvhNF1C MFVYHJ1DVTTIPQWPZCcGL2 vZQTMhkdr2ITAxZWKEHTfP HLiPNV9DL85MHLBDZNBBQZ 7OTVKnE9hXA13CPkEZIjER VElWRSBHQVNUUklUSVMgV0 dHSGNLY9CCKFNPR9BVUleL QDkeJBFhvILtLI3eQ0OPWM lEMlEHMJTSVbtwH1RRWL6c QaZMQEXRXmDpDg6UDQqvYO KVBI8GMUWJTFvGZY8FX8VM AMTBR5raTVJsfBLhCK5wAp AAOFKSIsFuEa5SQTRXN2NI PFHOTWHWYgRZDBEYXE7ZSV JjzDDqXFEabyAATdAFJE2C QUNILCBFUllUSEVNQSwgRU 9CR8NUI3LSKbJAUWZGK7WY TOQDT6UNAYLDCpamHFDtdO DzCV4mP1cDPbYLTbOYCLAD I8EbH6nEJYJJILnLOYAPDd 8MLMDfSQ6JP9EIWuCmR5WK VFJJVElTIEFORCBWRVJZIE PBH2KAOETTFQwTGYIJYOTv ciAgICAgICAgICAgICAgLS PNLI5KKqMxHTKOLCRHOETP C24JGRHPGH2USUBYZDBIMC JUTFkgREVOVURFRCBXUElU XWPFOQYFMCMagap7MIKjSN BXQVJUSElOIFNUQVJSWSBT VEFJTiBORUdBVElWRSBGT1 VyVV7bSZeCM9FCHNdHV8Om J8FRTH8IR84BBNOqpsn0DS UrKEIPVIxSXRbTZAESV5Hj KB4HISDWHA4VGJFLJUMXSO lCX2nOLSTTAOMNFFHSSDRh L3TdD4EZD3lAJ87ETEZkdg 67QJG8BkVkh1I9FSR5HNDf IDFon6acPGRuwLTqFwEiPk NcZnRuYmpcdWMxXGRlZmYw k3mgz746lCKfa7plLFYiZf E1wDApEQNerDYuP786AFEy ZEbjr8ikg0EuHAVzeFSss3 O9FNWUkqjbtUb7mYquB48c s0L4EbsdN4wiZPEtTGDiK9 KqON7zZKUyDwk6VHT0GZY6 XFVmTLZnR3PmPL3hDOInbR DdAVd3p6rqdXtgVFHkLUR4 x0oiJHrtmiMrDE5bit2piE d8d3lpxbMjYJWuKHGrlHTP MLDdG7LuiKxeDq1ywTw6mV yuQsigTDW0Qhd1XW5eek11 lln6nMsfYFZywaqlHjD5XW hdMQJmtlfgTDo6DIdjLLYl vVQ2UTTsjSLiX2RaDFKpKK 4hjol9ZKC4XDnyLINnQlA5 NDBcaGVhZGVyeTcyMFxmb2 56SPG0RcXzML1cQ5Obp6X9 bI3nvYIuSMZxeDVuLiZdQQ Dspm0vuGFfRXivl3QrVJD6 uqX6gKNizEHwPIAiRlR9XA upMV7gwy12NRWsCHC8vf3e bGNccGdicmRyaGVhZFxwZ2 VjGGSji103XQMeL3WaGUFb z1V0lyLxEtSdWCLfdCU2pe B9JMYxGE4pjkats5efOLxl LFyjEMEynpQ0cjG7WBHeiO QgF8LumQ0zSGQxEQ1lcrme c6qpDUE1TLbpODQcQII6Lx HmTILiy5Ibryf5KxWsa8Ft tIYoKJopU96yu295MKAttg WqF6kvkWPijyqeuYTtauip LEplbqV2LDQbJKjjujcmCN KsQVzsB7ibUhUcDWQmnMvu UCush1NiSRPyKFKgXdPbkX OiGCQnGsj5RIJkiQPzLULh UjUwH9igqfkbGlTDIBDir3 lhD7ozbMVBxUGlK9JeAUci riUjYZclCIwuZHVbJTH9NV 95GCglHDLour53 CPT Code(s) (test code c4jfsHNoYZDwaPG1PhQwEZ = 3357) Taa7qsd7TrkOUuiSYzTRfj kTLoitDjzh64xMO9cS77HD 7nXLVoWqZ9WXYhbqQ3Irz2 DUBvWPAnjIGdU980k2jfw8 cnypHjbHW4oNcuJJPkUODx YWluXGZzMjAgODgzMDUgWC BtMSL0TRUrXzTYBlqxIRI7 CLINICAL HISTORY (test q9eegWIjXSRxzLS7UcBbJR code = 3356) Yhw4nww0TpuAPjbJXdXIfz hMYjnvHgtg07eYQ1mQ74GZ 7fYJOcYtQ8VKIkwtO7Mdn0 YGBqUWMjxYXnU186a7yba1 qifmDczEG3dJooFCXjQFGm EHxxWLPbUgLebVMjRX8vRW Bhcn0= SPECIMEN SOURCE (test g3gylEQfYMZsmOR2XaGfHH code = 3377) Kvj3slg3DjcTBcaVUdEYrc yHNqbxZyqi13lRS7hB96QC 2hVXTtPuS9HTRosfV9Veu9 DBSiCULhpLWwC728p2nne0 ehilQmrMK7xUfxNMBlYOQu DJdhOTGfMlXxUG5dRHtar2 NekOKniLceOLHIDzOaZ7Ta tPDwD2cpOIJ6 GROSS DESCRIPTION (test x9upuRKgGMUycJQxDkVkBC code = 3366) VlNCNhu2wkDRByyPRbIcDg MzNcZnRuYmpcdWMxXGRlZm Ust7fim884yPAxg7sfJOPm OyE6iAYlNPPbyJOzS631c5 fjn3zezjCmqFP4ALHmMXX9 MJydiuDlrfW1NIpxbHPoFf U3OVnihlVySOzfqaXdunBe Grp4QNDbZ307FLF3wNmyx2 anNGW1UGIbDDEqWkEgBk5i aSPzO036RAAeZPHDMICalX u4XBPfqxCtwzGxoKOUb002 M635o4duGPKfouFjtBxFyf rjh0mvS932QCDcaWOdtuHd WxTtPLTjiUOetZO5WUGtJY 0szjlcZpVvIG6svgnsKbEn UQ4uqhv9YqXrKA0pzfgiTz UpLAuyFFMjhacfBTNgw7Gr mbcfWP2vN9Mfn9M2oM6fiW OaLYWcpDBeYxXoJYKbdm5n iEGgLOcoq2MzMNZ2rhS7aG TrrUCiQEJkHT81Kifxl8Zs NargLTR4TWDbwpDsz6Kkp8 nyMkUkutCxK1cdM2ZbLWBt MGRjDWGvRaDwbmZjc7Ivw4 OukBVfxLa3j9ytZQRlVMKm uRwlz3xtJIS2KPYrQ6Q2yV Pff2omGKwvDVNbjTP4wryl PWdiAZEsjvL6ruadIUhiGU JbgFY8wadaHVxfALQsOsL9 pbzdBAivPOPlHAQ0GIlbr8 56AKO4QOqzWbjhKXpmKIVi bmNvbnRccGduZGVjXHBsYW luXHBsYWluXGYwXGZzMjRc aCzogKbkvE1zUwReMvTmBN wcWH8tRTCmA2lbfNZhJYWf QYKqG9ocKfAezW7paMapET xmczIwIEEuICBSZWNlaXZl PWAoyoEmt4ClZIableQbYI RzaOKmHRFrURVqNJAzAA03 Z5VpdgWsMTlhKOPlCOOhpZ 5aYK39bFNqkoRitvWkRmol s4ZlqSZbAypehEL0DqDxrl QcPAT3SJ7rrWueaaV7aLUn wFOvZrYqC67hhqQhXZ7uQV N2xieyGnS4jSU4izLcHgYf V15bfX6pO7EfMNCke7BeET zvVX4tvD7dKDkcnLWkMJLf WDAwhKn0QTYmDUSsrxOek2 OurUg3hGAlBBghGUXciL5v zV5pQYLsSWOmxbzdRISoUh 1pXUMxX3DctdXkMSwyCKSj dd0dqJunQXruTeEyWFSjbH liJOAfrMgdkdFgkzUpQQ9u MANtG0Avv7Cnk84qavAhVt VzRYUqJXSrC0DscIWvKsVd aXMgYSAwLjIgeCAwLjIgeC DoXeAxY65goCBbROAzjeer rRald2DlACMoXSmaTB91DZ doaWNoIGlzIGZpbHRlcmVk QHWxLINyfVNbxJB0SZIpaL 5upZ36wrSqzxZEDY8fzHSk QTTvffQMaJhhqcEZxdq7ZN xsZXMsIFBBLCBIVCAoQVND UClccGFyfQ== MICROSCOPIC DESCRIPTION o7hnsJXdYTHsaHA7WzHeOY (test code = 3371) Vxz1ukm1LrfIIwrYFsWYeo mBSchsGugc20qBB6bP79BF 0pVWDoHoM6SGMlpyF4Tkx1 PAAhYWNsnKGeY420h9yow5 rnvoDmiJU6uGxrXEAoMAMa OKsvTEYzTuOiZYHeNi4tcW VkLlxwYXJ9 SPECIAL STUDIES (test o4upuHMnJAFgk6cxWXOmoB code = 3376) FuZzEwMzNcZnRuYmpcdWMx NCloadHxWVwcd1OgC4GcOy AwMFxhbnNpXGRlZmxhbmcx FKUnYVJ8rrTjLLSbZOneWH SnTFvaRd5lsDWwaSzfOtGl ESHll7amizWXrcboqQc9z7 eyCZWjKqH6cYRhGTduV0hx glDhvGVnK6JokIWimZi2r0 ldBpSmCmT9zUMjKEopT0mr gtCypLNaWDFzTVm9tD09IF DcgP8wrTVlEXzmaeKrBlB7 FDddXAOpKyN4CEOovYGiZI MjY7pvVOZaZKmxBJHmAZqb fWZsQQY6xSjuu6Y8sTRzaG DuyGidTpEsZgEwKlPTh1Fu QVb4bNxjT4XmSHDzXjM5vC QgUGFyYWdyYXBoIEZvbnQ7 aIijccAcp03eeNDvZWJcDP DyNqRqgAmcGBDnTFLNv5Jp eFhbQXK2zNd7iZnrTrnkOA R2Urh8MP5wny67ghp7jAdx VIXcubszVeU0MEcgMETnqq zkHQr7JPweXZIjxGC9GMMe iKKtS4EaPDPkQI7zamx6ZO G6QIoiYIUtCyN8ERRphILg VABefGiuBNyfq911FWR6Oq KcLA4cL2Rgq8P9rZ3qiGEt BEKtaFMvHsKvGFKlpp6cpJ CxQRuap9XoYZX9rjU7bAYe bDLeBKZwSS00Beamy0MtSm mms1WxA58tvMV4CCmuy3vc HL1mUtI1jxNhDFfrn7qquD 9kDxI0LMalIW0zTN7mHFIs tK8erjkbZAVxJwJtotdtNA HkrNklulPbUa2chEvkLRN1 OXrhA4glvB5mUaW7ORnkM9 iviC8lFLx7NSxvhJI2QHKm hU8zDO0ypxgzx2iqYIagJL tqNXJcgvK6dpO9RQZbyODt C2GzdU3gTPCbXB2qdyncu7 hkTRN2GYnrSKEpBXM3UnLy MXHik9Tzfiv4WzZoc6GlaG UqCDchK93yh836AMCeeeKs J7ohyKLfwoxtjONqsatuTQ kgctX1BVGsOYWdWYkzYOCo XGZzMjJcbGFuZzEwMzNcaG ljaFxmMVxkYmNoXGYxXGxv S1knFyDoF8RcJPBsHwDvJE lgBPtvpRIbeWJcfVG7sA9m PH4hZQApgPMjJ9WlUDBxjw UicMNuOTX6kNWedDTqLW8l ELvcmRKdw3qcv2XvF6tglJ pggVC4AY3yMKOqLUGwGFrd d0IiqH3qIhgdeRZsklaeUA xmczIyXGxhbmcxMDMzXGhp R6gbFxCyJIZaoPnpHWann3 NoXGYxXGNmMlxmczIyXGx0 cmNoXHBhclxwYXJccGxhaW 4uUlBpUuDmCdfcHN2uPXZw Q5wcuGXwOTUkGLQgT5ewGs DvgI3ciRphHIiqDiLeLyZt XaGAc660nc4zQVKkbPCxti RReSFydH9sUNxjDHquZIot gBTqHUgfd8fmAXNaf5s0dD CrZVErvzNlt7xsWKnfxwMd BQZfkYLhgKIuRXSqs46kLF btuDgnbCsgOMPym8CtpYrd j8RcXgNmQAkdq2KaU12ggJ JvbCBzbGlkZXMgcnVuIGFs x09he5mwLLMnUaQ5dQZicR J5sBJnuYMwq4CrdLvyVCPp k1krVVTlez0uhoxbsWCju1 TugI7bbvtbDCvjqJXtnzNa EQOvp3w0oVQrZXAxKXQfDY ivqWe0CGNmr770py8fylO5 cYFjMPJ4WRrtLVMvDMQiuj UgZXZhbHVhdGVkXHBsYWlu XGYxXGZzMjJcbGFuZzEwMz NcaGljaFxmMVxkYmNoXGYx BMohP5hcYiNbR4IhSFOxXe EonONdA9qnpOEbSAMlHKru XGYxXGZzMjJcbGFuZzEwMz NcaGljaFxmMVxkYmNoXGYx EWukN3nkAnDlV8CuIMOwJu IgIFxwbGFpblxmMVxmczIy IAchvrxkSLDiBFjmS3prRw BuNZTfiXwdXWqrp9CeEHZw BFOyKxkvyhDqTKg0jlHrEW BhclxwbGFpblxmMVxmczIy ZDahxaleASQlPOdlG6tiZj BhBFRgyCbbSRdsf6JlEOXo XGNmMlxmczIyIEltbXVub2 sqh7WbM0ksxWvnkVX5RFRf Y0pitJPwyDS0FOX2tK4yGS lxbqTjFBTix0FtIRQpLUVs LxY3qE0tRHP2UoVAoMciJB BsYWluXGYxXGZzMjJcbGFu ZzEwMzNcaGljaFxmMVxkYm NxSPVaRHldV8njMiAjD0Bq YCHmYsOkpYlkBCtfHIf8Jr xwbGFpblxmMVxmczIyXGxh azpvZDIoMYnwV3amQnPnZC UvqHbyTWoic7ReJTMwFBNm MlxmczIyIHMgTWVkaWNhbC KIOS83DGIkGBYtfYjykS0g fOZEZLFtctS4c9O0WLhhDK EmZZa6KLuynkYsTPLijJ8d JISdUG7sCUi6pzWuDDSvv2 OuDO1dXQBluGAdKAY3IHQp h7CcT0Wrz9GeIKSuTMWohr 4ihtYjWkXVoPNqOUHrdz94 HILzAX1bH7gtKPTzAHLbmx PdkGLud2SwCSIokTB1uZVk QA3AFpUEo82dJFAdQUOTur EmICGzwIykqJU1doY1cW3z LiBUaGUgRkRBIGhhcyBkZX Zmrs2rciTyKZLvKGFnj2Ys fMHyzYYdjyFoJ0Uzr2SoCF Ognl46ICzxqZWbvp82BO0y L3Fhh2LrnP5vZXtjTFNgw4 JnsAMheCJtZBHfw5NpW8wg iiplRYctgSVfpO2kGEInXQ w5FPEpi5GiKXJip8QvEkUk zsPaWJNhSFKtONGsgW73GM J9cZccqFkodyFsON2kEOFz wfDlTGSjTLGzcS9qWQjsbj UiKFPkaoY5p4M7LXyoJNCe riCzAipbNVA2bkCfqtG0eW YnT8wzamfpFIhlKDSdd5Ue gU5eiDPEpGXzr5KioLRybT TMeNZpYG2tyaBzWJ4rFBA8 ODggKENMSUEtODgpIGFzIH E1HWddSypmEPI5qkQxLJZr r6LqTPwpQ9llT92koOtldH c8dGUnoBbnzWGnkYTtZYIz daT2z0K4JMQtl9LgcdaxPX BsYWluXGYyXGZzMjJcbGFu ZzEwMzNcaGljaFxmMlxkYm EoSMSoOGwwL9ilJwJqOeKr EjpzMZV2kG== Gross assessment was [facility] performed at ([facility], = 2777) Department of Pathology, [address] [place] [address], Technical component was [facility] performed at ([facility], = 2778) Department of Pathology, [address] [place] [address], Professional component [facility] was performed at ([facility], code = 2779) Department of Pathology, [address] [place] [address], [facility] [id number] 14:24:00Surgical Pathology Report Case: [id number] Authorizing Provider: Sarkis Laboy, Collected: 10/01/2020 09:43 AM OrderingLocation: [place] [address] ccu Received: 10/01/2020 01:48 PM Pathologist: Pa [...] OR CARCINOMA Signing Pathologist Direct Phone Line: [phone] signed by Pa Peters MD on 10/02/2020 at 2:24 [id number] X 2, 75548 N1tgsyvdK. GastricB. GastricA. Received in formalin labeled the [...] evaluated Immunohistochemistry technical testing was performed at [facility], Pathology Laboratory where it was [...] qualified to perform high complexity clinical laboratory testing.[facility], Department of Pathology, [address] [place] [address], [facility], [facility], [address] [place] [address], [facility], Department of Pathology, [address] [place] [address], VOYF-GLUCOSE [id number] 11:33:00 Test Item Value Reference Range Interpretation Comments POC-GLUCOSE METER 124 mg/dL 70-110 H : TESTED A T [facility] 6720 (BEAKER) (test code = [facility], 1538) 73501: Hat Mender/Techni min ID = [id number] for Be noitBraulioa POCT-GLUCOSE [id number] 08:15:00 Test Item Value Reference Range Interpretation Comments POC-GLUCOSE METER 106 mg/dL 70-110 : TESTED A T [facility] 6720 (BEAKER) (test code = [facility], 1538) 87177: Hat Mender/Techni min ID = [id number] for Be nodenzel, Emmanuelaira Comprehensive metabolic [id number] 05:17:00 Test Item Value Reference Range Interpretation Comments Protein, Total (test 6.1 See_Comment [Autom ated code = 2885-2) message] The system which generated this result transmit altagracia reference range : 6.0 - 8.3 gm/dL . The reference range was not u sed to interpret th is result as normal/abnormal . Albumin (test code = 2.6 g/dL 3.5-5 L 16429-3) Alkaline Phosphatase 85 U/L 40-150 (test code = 6768-6) Total Bilirubin (test 0.3 mg/dL 0.2-1.2 code = 1975-2) Sodium (test code = 133 meq/L 136-145 L 2951-2) Potassium (test code 4.0 meq/L 3.5-5.1 = 2823-3) Chloride (test code = 106 meq/L 98-107 2074-0) CO2 (test code = 17 meq/L 22-29 L 2027-9) BUN (test code = 37 mg/dL 7-21 H 3094-0) Creatinine (test code 1.94 mg/dL 0.57-1.25 H = 2160-0) Glucose (test code = 116 mg/dL 70-105 H 2345-7) Calcium (test code = 7.7 mg/dL 8.4-10.2 L 18188-9) AST (test code = 17 U/L 5-34 1920-8) ALT (test code = 9 U/L 6-55 1742-6) EGFR (test code = 35 mL/min/1.73 [place] [address]-3) NOT ACCURATE CREATININE CLEARANCE IN PREDICTING GLOMERULAR FILTRATION RATE . ESTIMATED GFR I S NOT APPLICABLE FOR DIALYSIS PATIEN TS. ELIANA (test code = ELIANA) Hat Mender ID - EDASI Lab Interpretation Abnormal (test code = 53469-4) [facility] [id number] 05:17:00 Test Item Value Reference Range Interpretation Comments Protein, Total (test 6.1 See_Comment [Autom ated code = 2885-2) message] The system which generated this result transmit altagracia reference range : 6.0 - 8.3 gm/dL . The reference range was not u sed to interpret th is result as normal/abnormal . Albumin (test code = 2.6 g/dL 3.5-5 L 53428-6) Alkaline Phosphatase 85 U/L 40-150 (test code = 6768-6) Total Bilirubin (test 0.3 mg/dL 0.2-1.2 code = 1975-2) Sodium (test code = 133 meq/L 136-145 L 2951-2) Potassium (test code 4.0 meq/L 3.5-5.1 = 2823-3) Chloride (test code = 106 meq/L 98-107 2074-0) CO2 (test code = 17 meq/L 22-29 L 2027-9) BUN (test code = 37 mg/dL 7-21 H 3094-0) Creatinine (test code 1.94 mg/dL 0.57-1.25 H = 2160-0) Glucose (test code = 116 mg/dL 70-105 H 2345-7) Calcium (test code = 7.7 mg/dL 8.4-10.2 L 84232-7) AST (test code = 17 U/L 5-34 1920-8) ALT (test code = 9 U/L 6-55 1742-6) EGFR (test code = 35 mL/min/1.73 [place] [address]-0) NOT ACCURATE CREATININE CLEARANCE IN PREDICTING GLOMERULAR FILTRATION RATE . ESTIMATED GFR I S NOT APPLICABLE FOR DIALYSIS PATIEN TS. MONROY (test code = ELIANA) Hat Mender ID - EDASI Lab Interpretation Abnormal (test code = 67263-3) [facility] [id number] 05:17:00 Test Item Value Reference Range Interpretation [...] S NOT APPLICABLE FOR DIALYSIS PATIEN TS. Hat Mender ID - EDASICBC W/PLT COUNT & AUTO [id number] 04:32:00 Test Item Value Reference Range Interpretation [...] PERCENT (BEAKER) (test code = 2801) POCT-GLUCOSE [id number] 21:36:00 Test Item Value Reference Range Interpretation Comments POC-GLUCOSE METER 146 mg/dL 70-110 H : TESTED A T [facility] 6720 (BEAKER) (test code = [place], 1538) [address]: Hat Mender/Techni min ID = [id number] for Johana Vasquez Hemoglobin [id number] 15:28:00 Test Item Value Reference Range Interpretation Comments Hemoglobin A1C (test code = 4548-4) 5.6 % 4.3-6.1 Lab Interpretation (test code = Normal 81680-4) [facility] [id number] 15:28:00 Test Item Value Reference Range Interpretation Comments Hemoglobin A1C (test code = 4548-4) 5.6 % 4.3-6.1 Lab Interpretation (test code = Normal 56926-3) [facility] [id number] 15:28:00 Test Item Value Reference Range Interpretation Comments HEMOGLOBIN A1C (BEAKER) (test code = 5.6 % 4.3-6.1 368) CBC W/PLT COUNT & AUTO [id number] 12:44:00 Test Item Value Reference Range Interpretation [...] PERCENT (BEAKER) (test code = 2801) POCT-GLUCOSE [id number] 11:11:00 Test Item Value Reference Range Interpretation Comments POC-GLUCOSE METER 125 mg/dL 70-110 H : TESTED A T [facility] 6720 (BEAKER) (test code = [place], 1538) 127[address]: Hat Mender/Techni min ID = [id number] for BE LL, BEAULA Vancomycin level, [id number] 10:39:00 Test Item Value Reference Range Interpretation Comments Vancomycin Rm (test 4.8 ug/mL code = 81196-4) ELIANA (test code = Reference Range: No ELIANA) NormalsOperator ID - COLBY Rodriguez [facility], [id number] 10:39:00 Test Item Value Reference Range Interpretation Comments Vancomycin Rm (test 4.8 ug/mL code = 56108-6) ELIANA (test code = Reference Range: No ELIANA) NormalsOperator ID - COLBY Rodriguez [facility] CenterVANCOMYCIN LEVEL, [id number] 10:39:00 Test Item Value Reference Range Interpretation Comments VANCOMYCIN RANDOM (BEAKER) (test 4.8 ug/mL code = 523) Reference Range: No NormalsOperator ID - COLBY CPOCT-GLUCOSE [id number] 08:38:00 Test Item Value Reference Range Interpretation Comments POC-GLUCOSE METER 119 mg/dL 70-110 H : TESTED A T [facility] 6720 (BEMEREDITH) (test code = [place], 1538) 347[address]: Hat Mender/Techni min ID = [id number] for BARBARA FRIEDMAN SARS-CoV2/RT-PCR (Asymptomatic ONLY)2020-10-01 08:13:00 Test Item Value Reference Range Interpretation Comments SARS-COV2/RT-PCR Negative Not Detected, (test code = Negative, See 88830-1) external report for linked test SARS-COV-2 [facility] PERFORMING LAB (test code = 25457-1) ELIANA (test code = Negative result for [...] of the Act. Fact Sheet for Healthcare Providers:https://www.[employer]/sites/default/f dorys/product/documents/F act_Sheet_HC_Providers_L tes_UJDF-GiW-9.pdf Fact Sheet for Healthcare Patients:https://www.[employer]/sites/default/fi les/product/documents/Fa ct_Sheet_Patients_Lyra_S ARS-CoV-2.pdf Performing Laboratory:[facility] [place] [address] [facility]Asymptomatic ONLY)2020-10-01 08:13:00 Test Item Value Reference Range Interpretation Comments SARS-COV2/RT-PCR Negative Not Detected, (test code = Negative, See 05315-4) external report for linked test SARS-COV-2 [facility] PERFORMING LAB (test code = 33980-5) ELIANA (test code = Negative result for [...] of the Act. Fact Sheet for Healthcare Providers:https://www.[employer]/sites/default/f dorys/product/documents/F act_Sheet_HC_Providers_L bmt_YAAF-GdG-4.pdf Fact Sheet for Healthcare Patients:https://www.[employer]/sites/default/fi les/product/documents/Fa ct_Sheet_Patients_Lyra_S ARS-CoV-2.pdf Performing Laboratory:[facility] [place] [address].[place], [place] [id number] [place], [place] [address]ARS-COV2/RT-PCR ([facility])2020-10-01 08:13:00 Test Item Value Reference Range Interpretation Comments SARS-COV2/RT-PCR (test Negative Not Detected, Negative, code = 0568635) See external report for linked test SARS-COV-2 PERFORMING LAB [facility] MAR[facility] (test code = 5788264) Negative result for this test determines that [...] 564(g) of the Act.Fact Sheet for Healthcare Providers:https://www.[employer]/sites/default/files/product/documents/Fact_Shee v_SZ_Fufpatqev_Qmtj_SUCK-IzP-1.pdfFact Sheet for Healthcare Patients:https://www.[employer].com/sites/default/files/product/ documents/Uiwa_Tnpff_Enhwqonj_Rmcz_UFGW-CbW-1.pdfPerforming Laboratory:[facility], [place] [id number] 06:20:00 Test Item Value Reference Range Interpretation Comments Ferritin (test code = 61.09 ng/mL 5275 2276-4) ELIANA (test code = ELIANA) Hat Mender ID - PIAYA L Lab Interpretation (test Normal code = 57191-0) [facility] HospitalVitamin B12 and [id number] 06:20:00 Test Item Value Reference Range Interpretation Comments Vitamin B12 (test 267 pg/mL 213-816 code = 2132-9) Folate (test code = 11.30 ng/mL See_Comment [Automa altagracia 2284-8) message] The system which generated this result transmit altagracia reference range : >=7.00. The reference range was not used to interpret this result as normal/abnormal . ELIANA (test code = ELIANA) Hat Mender ID - ASHLEIGH L Lab Interpretation Normal (test code = 86709-1) [facility] HospitalFerritin2021-[facility] 06:20:00 Test Item Value Reference Range Interpretation Comments Ferritin (test code = 61.09 ng/mL 5-275 2276-4) ELIANA (test code = ELIANA) Hat Mender ID - ASHLEIGH L Lab Interpretation (test Normal code = 37561-1) [facility] HospitalVitamin B12 and [id number] 06:20:00 Test Item Value Reference Range Interpretation Comments Vitamin B12 (test 267 pg/mL 213-816 code = 2132-9) Folate (test code = 11.30 ng/mL See_Comment [Automa altagracia 2284-8) message] The system which generated this result transmit altagracia reference range : >=7.00. The reference range was not used to interpret this result as normal/abnormal . ELIANA (test code = ELIANA) Hat Mender ID - ASHLEIGH Day Lab Interpretation Normal (test code = 07779-3) [facility] HospitalFERRITIN2021-[facility]-19 06:20:00 Test Item Value Reference Range Interpretation Comments FERRITIN (BEAKER) (test code = 61.09 ng/mL 5.00-275.00 361) Hat Mender ID - ASHLEIGH LVITAMIN B12 AND [id number] 06:20:00 Test Item Value Reference Range Interpretation Comments VITAMIN B12 267 pg/mL 213-816 (BEAKER) (test code = 774) FOLATE (BEAKER) 11.30 ng/mL See_Comment [Automated message] (test code = 362) The system which generated this result transmitted ref erence range: >=7.00. The reference range was not used to interpr et this result as normal/abnormal . Hat Mender ID - ASHLEIGH George, TIBC, % sat. (without ferritin)2020-10-01 06:04:00 Test Item Value Reference Range Interpretation Comments Iron (test code = 2498-4) 17.0 ug/dL 40-160 L TIBC (test code = 2500-7) 323 ug/dL 250-450 Iron % Saturation (test 5 % 20-55 L code = 2502-3) ELIANA (test code = ELIANA) Hat Mender ID - PIAYA L Lab Interpretation (test Abnormal code = 95152-0) [facility] HospitalIro, TIBC, % sat. (without ferritin)2020-10-01 06:04:00 Test Item Value Reference Range Interpretation Comments Iron (test code = 2498-4) 17.0 ug/dL 40-160 L TIBC (test code = 2500-7) 323 ug/dL 250-450 Iron % Saturation (test 5 % 20-55 L code = 2502-3) ELIANA (test code = ELIANA) Hat Mender ID - PIAYA L Lab Interpretation (test Abnormal code = 72093-0) [facility], % SAT. (WITHOUT FERRITIN)2020-10-01 06:04:00 Test Item Value Reference Range Interpretation Comments IRON (BEAKER) (test code = 547) 17.0 ug/dL 40.0-160.0 L TOTAL IRON BINDING CAPACITY 323 ug/dL 250-450 (BEAKER) (test code = 769) IRON % SATURATION (2) (BEAKER) 5 % 20-55 L (test code = 2590) Hat Mender ID - PIAYA LPOCT-GLUCOSE [id number] 05:23:00 Test Item Value Reference Range Interpretation Comments POC-GLUCOSE METER 116 mg/dL 70-110 H [facility] (test code [facility], = 1538) [address]: Hat Mender/Techni min ID = [id number] for JUNIE ALICIA CBC W/PLT COUNT & AUTO [id number] 03:26:00 Test Item Value Reference Range Interpretation [...] (BEAKER) (test code = 2801) COMPREHENSIVE METABOLIC [id number] 03:22:00 Test Item Value Reference Range Interpretation [...] S NOT APPLICABLE FOR DIALYSIS PATIEN TS. Hat Mender ID - DBCBC W/PLT COUNT & AUTO [id number] 20:14:00 Test Item Value Reference Range Interpretation [...] PERCENT (BEAKER) (test code = 2801) POCT-GLUCOSE [id number] 20:12:00 Test Item Value Reference Range Interpretation Comments POC-GLUCOSE METER 134 mg/dL 70-110 H : TESTED A T [facility] 6720 (BEAKER) (test code [facility], = 1538) 19663: Hat Mender/Techni min ID = [id number] for CORRY CASAS JUNIE CBC (HEMOGRAM ONLY)2020-09-30 [...] 0-0 (BEAKER) (test code = 413) POCT-GLUCOSE [id number] 14:32:00 Test Item Value Reference Range Interpretation Comments POC-GLUCOSE METER 106 mg/dL 70-110 : TESTED A T [facility] 6720 (BEAKER) (test code = [place], 1538) [address]: Hat Mender/Techni min ID = [id number] for CHUY SWANN HEMOGLOBIN [id number] 11:57:00 Test Item Value Reference Range Interpretation Comments HEMOGLOBIN A1C (BEAKER) (test code = 5.6 % 4.3-6.1 368) U/S, ABDOMINAL, [id number] 11:53:00Abdomen limited area? Add comment if clarification is needed.->Right upper quadrantReason for exam:->liver cirrhosis; ETOH abuse [facility] : 1950 Sex: MFINAL REPORT TECHNIQUE: Grayscale [...] MDReport Verified Date/Time: 09/30/2020 11:53:08 US abdomen [id number] 11:53:00Interface, External Ris In - 09/30/2020 11:55 [...] signedby: CAITY HERNADEZ MD on 09/30/2020 11:53 [facility] [id number] 11:53:00Interface, External Ris In - 09/30/2020 11:55 AM CDTFINAL REPORT TECHNIQUE: Grayscale ultrasound of the right abdomen. INDICATION: liver cirrhosis; ETOH abuse. COMPARISON: None.FINDINGS: MIDLINE VASCULATURE: The visualized inferior vena cava is unremarkable. The maximum visualized aortic diameter is 2.6 cm. LIVER: The hepatic echotexture is coarsened. The liver contour is questionably nodular. No focal lesions. The main portal vein is patent and measures 1.5 cm in diameter. BILIARY:Gallbladder: A nodular focus in the gallbladder neck [...] signedby: CAITY HERNADEZ MD on 09/30/2020 11:53 [facility]/Microscopic + Reflex to [id number] 10:53:00 Test Item Value Reference Range Interpretation Comments Color, UA (test code Light Yellow = 5778-6) Clarity, UA (test Clear code = 5767-9) Specific [place], UA 1.014 1.001-1.035 (test code = 5811-5) pH, UA (test code = 6.0 5.0-8.0 5803-2) Protein, UA (test 200 mg/dL Negative A code = 26671-3) Glucose, UA (test 50 mg/dL Negative A code = 365) Ketones, UA (test Negative Negative code = 2514-8) Bilirubin, UA (test Negative Negative code = 80218-5) Blood, UA (test code Small Negative A = 23993-7) Nitrite, UA (test Negative Negative code = 5802-4) Leukocytes, UA (test Negative Negative code = 5799-2) Urobilinogen, UA 0.2 mg/dL 0.2-1 (test code = 43784-3) RBC, UA (test code = 1 See_Comment [Autom ated 09004-6) message] The system which generated this result [...] . Bacteria, UA (test Few code = 61839-9) Mucus (test code = Few 8247-9) Squam Epithel, UA 1 See_Comment [Automate d (test code = 93647-8) messag e] The system which generated this result transmit altagracia reference range : /HPF. The reference range was not used to interpret this result as normal/abnormal . Hyaline Casts, UA 6 See_Comment [Automate d (test code = 65914-5) messag e] The system which generated this result transmit altagracia reference range : /LPF. The reference range was not used to interpret this result as normal/abnormal . Specimen Source (test code = 2795) ELIANA (test code = ELIANA) Hat Mender ID - [auto]Hat Mender ID - tech Lab Interpretation Abnormal (test code = 92535-1) [facility]Microsc[facility] + Reflex to Culture 2020-09-30 10:53:00 Test Item Value Reference Range Interpretation Comments Color, UA (test code Light Yellow = 5778-6) Clarity, UA (test Clear code = 5767-9) Specific [place], UA 1.014 1.001-1.035 (test code = 5811-5) pH, UA (test code = 6.0 5.0-8.0 5803-2) Protein, UA (test 200 mg/dL Negative A code = 33075-1) Glucose, UA (test 50 mg/dL Negative A code = 365) Ketones, UA (test Negative Negative code = 2514-8) Bilirubin, UA (test Negative Negative code = 15107-3) Blood, UA (test code Small Negative A = 69626-5) Nitrite, UA (test Negative Negative code = 5802-4) Leukocytes, UA (test Negative Negative code = 5799-2) Urobilinogen, UA 0.2 mg/dL 0.2-1 (test code = 89206-2) RBC, UA (test code = 1 See_Comment [Autom ated 03252-9) message] The system which generated this result [...] . Bacteria, UA (test Few code = 07865-4) Mucus (test code = Few 8247-9) Squam Epithel, UA 1 See_Comment [Automate d (test code = 62410-9) messag e] The system which generated this result transmit altagracia reference range : /HPF. The reference range was not used to interpret this result as normal/abnormal . Hyaline Casts, UA 6 See_Comment [Automate d (test code = 30957-5) messag e] The system which generated this result transmit altagracia reference range : /LPF. The reference range was not used to interpret this result as normal/abnormal . Specimen Source (test code = 2795) ELIANA (test code = ELIANA) Hat Mender ID - [auto]Hat Mender ID - tech Lab Interpretation Abnormal (test code = 04977-2) [facility]/ REFLEX URINE [id number] 10:53:00 Test Item Value Reference Range Interpretation [...] code = 514) SOURCE(BEAKER) (test code = 9644) Hat Mender ID - [auto]Hat Mender ID - techLactic acid, [id number] 10:00:00 Test Item Value Reference Range Interpretation Comments Lactate, Venous (test code 1.08 mmol/L 0.5-2.2 = 2872) ELIANA (test code = ELIANA) Hat Mender ID - PIAYA L Lab Interpretation (test Normal code = 69746-4) [facility] HospitalLactic acid, [id number] 10:00:00 Test Item Value Reference Range Interpretation Comments Lactate, Venous (test code 1.08 mmol/L 0.5-2.2 = 2872) ELIANA (test code = ELIANA) Hat Mender ID - PIAYA L Lab Interpretation (test Normal code = 77590-1) [facility] HospitalLACTIC ACID, [id number] 10:00:00 Test Item Value Reference Range Interpretation Comments LACTATE BLOOD VENOUS (2) (BEAKER) 1.08 mmol/L 0.50-2.20 (test code = 2872) Hat Mender ID - STEPHENIEEAGLE LCBC W/PLT COUNT & AUTO [id number] 09:53:00 Test Item Value Reference Range Interpretation [...] = 2801) RAD, CHEST, 1 VIEW, NON [id number] 09:06:00Reason for exam:->? sob [facility] : 1950 Sex: MFINAL REPORT INDICATION: ? sob COMPARISON: None TECHNIQUE: Single fro ntal view of the chest. FINDINGS: Lungs and pleura: Clear lungs. No effusion.Heart and mediastinum: Normal heart size. Unremarkable mediastinal contours.Osseous structures: No acute abnormality.Other: None. IMPRESSION: No acute intrathoracic abnormality. Signed: Nahed Cleary Verified Date/ Time: 09/30/2020 09:06:18 Reading Location: [facility] Radiology Reading Room XR chest 1 view portable / [id number] 09:06:00Interface, External Ris In - 09/30/2020 9:24 AM CDTFINAL REPORT INDICATION: ? sob COMPARISON: None TECHNIQUE: Single frontal view of the chest. FINDINGS: Lungs and pleura: Clearlungs. No effusion.Heart and mediastinum: Normal heart size. Unremarkable mediastinal contours.Osseous structures: No acute abnormality.Other: None. IMPRESSION: No acute intrathoracic abnormality. Sign ed: Nahed Cleary Verified Date/Time: 09/30/2020 09:06:18 Reading Location: [facility] Radiology Reading Room [facility] 1 view portable / [id number] 09:06:00Interface, External Ris In - 09/30/2020 9:24 AM CDTFINAL REPORT INDICATION: ? sob COMPARISON: None TECHNIQUE: Single frontal view of the chest. FINDINGS: Lungs and pleura: Clearlungs. No effusion.Heart and mediastinum: Normal heart size. Unremarkable mediastinal contours.Osseous structures: No acute abnormality.Other: None. IMPRESSION: No acute intrathoracic abnormality. Sign ed: Nahed Cleary Verified Date/Time: 09/30/2020 09:06:18 Reading Location: [facility] Radiology Reading Room [facility] COMPREHENSIVE METABOLIC [id number] 07:47:00 Test Item Value Reference Range Interpretation [...] S NOT APPLICABLE FOR DIALYSIS PATIEN TS. Hat Mender ID - [id number] 07:07:00 Test Item Value Reference Range Interpretation Comments PTT (test code = 21526-3) 25.1 See_Comment [ Automated message] The system [employer] generated this result transmitted ref erence range: 22.5 - 3 6.0 seconds. The re ference range was not u sed to interpret this result as normal/abnor mal. Lab Interpretation (test Normal code = 24833-5) [facility] HospitalaPTT2021-03-[facility] 07:07:00 Test Item Value Reference Range Interpretation Comments PTT (test code = 56974-4) 25.1 See_Comment [ Automated message] The system [employer] generated this result transmitted ref erence range: 22.5 - 3 6.0 seconds. The re ference range was not u sed to interpret this result as normal/abnor mal. Lab Interpretation (test Normal code = 55292-0) [facility] HospitalAPTT20[facility] 07:07:00 Test Item Value Reference Range Interpretation Comments PARTIAL THROMBOPLASTIN TIME 25.1 seconds 22.5-36.0 (BEAKER) (test code = 760) PROTHROMBIN TIME/[id number] 07:07:00 Test Item Value Reference Range Interpretation Comments PROTIME ([facility]) 14.2 seconds 11.9-14.2 (test code = 759) INR ([facility]) (test 1.13 See_Comment [Automat ed message] code = 370) The system [employer] generated this result transmitted ref erence range: <=5.90. The reference range was not used to int erpret this result as normal/abnormal . Effective 12/11/2018: PT Reference Range ChangeNew: 11.9-14.2 Previous: 11.7- 14.7RECOMMENDED COUMADIN/WARFARIN INR THERAPY RANGESSTANDARD DOSE: 2.0-3.0 Includes: PROPHYLAXIS for venous thrombosis, systemic embolization; TREATMENT for venous thrombosis and/or pulmonary embolus.HIGH RISK: Target INR is2.5-3.5 for patients wiht mechanical heart valves.POCT-GLUCOSE [id number] 06:39:00 Test Item Value Reference Range Interpretation Comments POC-GLUCOSE METER 150 mg/dL 70-110 H : TESTED A T [facility] 6720 (BEAKER) (test code [facility], = 1538) [address]: Hat Mender/Techni min ID = [id number] for JUNIE ALICIA [id number] 00:00:00Ordered by an unspecified provider.[facility] HospitalEKG-[id number] 00:00:00Ordered by an unspecified provider. [facility])2020-01-26 13:29:00 Test Item Value Reference Range Interpretation Comments SARS-COV2/RT-PCR (test code = Negative Not Detected, Negative 2150553) SARS-COV-2 PERFORMING LAB [facility] (test code = 4273970) Negative result for this test determines that [...] 564(g) of the Act.Fact Sheet for Healthcare Providers:https://www.[employer]/sites/default/files/product/documents/Fact_Shee a_ED_Vkdehosge_Uuex_YAKD-MpL-8.pdfFact Sheet for Healthcare Patients:https://www.[employer].com/sites/default/files/product/ documents/Defl_Spghu_Nublvtqp_Oecj_NMUT-XaE-6.pdfPerforming Laboratory:[facility] [place] [address]
--- NOTE | 2021-03-01 20:58 | ER ---
Nurse's Notes [facility] Name: Amaury Matamoros Age: 70 yrs Sex: Male : 1950 Arrival Date: 03/01/2021 Time: 17:53 Bed Waiting Private MD: Garo Us Diagnosis: ED Course: 03/01 17:53 Patient arrived in ED. am2 17:53 Garo Us MD is Private Physician. am2 20:05 Patient's name was called from ER Clerts!. No response. bb 20:55 Patient's name was called from ER Clerts!. No response. Unable to locate patient. Will bb disposition as left without being seen by a provider. Administered Medications: No medications were administered Outcome: 20:58 Patient left the ED. bb Signatures: Shanna Jones RN RN bb Chanda Bonilla am2
== END 2021-03-01 20:58 | disposition left against medical advice (07) ==
LOC: ER 17:41
DX: Z02.9 Encounter for administrative examinations, unspecified (principal)

== ENCOUNTER 2021-03-04 15:39 | Observation (INO) | payer OTHER ==
--- OUTSIDE RECORDS SUMMARY | 2021-03-04 15:48 | XMS REPORT | Continuity of Care Document ---
:1950 Author Organization [facility] t Address [address] [place] [address] Care Team Providers Name Role Phone Laney MAXWELL BRhys Attending Clinician Renetta MAXWELL, Niranjan Attending Clinician Narda AMXWELL, Eric Attending Clinician Vandana MAXWELL, Jose Attending Clinician Lynda ESPINOZA Admitting Clinician Unavailable Payers Payer Name Policy Type Policy Effective Date Expiration Date Sour ce Number [employer] MEDICARE [id number] [facility] MGD CAREWELLCARE 00:00:00 - Medica l [id number] Center 21-Present Problems Condition Condition Condition Status [...] Date Date Clinician Penicill Drug Active Rash [facility] ins Allergy 5-31 [facility] - 00:00: Medical 00 Center Penicill Adverse Active Info Not [facility] amine Reaction Available [facility] Clin[facility] Social History Social Habit Start Date Stop Date Quantity Comments Source Sex Assigned At [facility] Alcohol intake 2020-10-04 2020-10-04 Current drinker [facility] Elvis hewitt [facility] - 00:00:00 00:00:00 of [facility] (finding) Tobacco use and 2020-10-04 2020-10-04 Never used [facility] - exposure 00:00:00 00:00:00 [facility] Smoking Status Start Date Stop Date Source Current every day smoker 2020-10-04 00:00:00 [facility] Medications Ordered Filled Start Stop Current Ordering Indication Dosage Frequency Signature Comments Components Source Medication Medication Date Date Medication? Clinician (SIG) Name Name amLODIPine 2021- No 2.5mg QD Take [address] [facility] [address] (NORVASC) -04 10- tablet [facility] - 2.5 MG 00:00: 23:59 (2.5 mg Medical tablet 00 :00 total) by Center mouth daily. amLODIPine 2021- No 2.5mg QD Take [address] [facility] (NORVASC) -04 10- tablet [facility] - 2.5 MG 00:00: 23:59 (2.5 mg Medical tablet 00 :00 total) by Center mouth daily. amLODIPine 2021- No 2.5mg QD Take [address] [facility] (NORVASC) 3-04 10- tablet [facility] - 2.5 MG 00:00: 23:59 [...] 650mg Take [address] en 3-03 10-16 tablets [facility] - (TYLENOL) 00:00: 23:59 [...] 100mg Take [address] (MONODOX) 10-0331 capsule [facility] - 100 MG 00:00: 23:59 (100 mg Medical capsule 00 :00 total) by Center mouth every 12 (twelve) hours for 10 days. doxycycline 2020-2020- No 100mg Take [address] (MONODOX) 10-0331 capsule [facility] - 100 MG 00:00: 23:59 (100 mg Medical capsule 00 :00 total) by Center mouth every 12 (twelve) hours for 10 days. doxycycline 2020-2020- No 100mg Take [address] (MONODOX) 10-03-31 capsule [facility] - 100 MG 00:00: 23:59 (100 mg Medical capsule 00 :00 total) by Center mouth every 12 (twelve) hours for 10 days. Lisinopril Lisinopril Yes Alfonzo [address] [facility] Hydrochloro Hydrochloro Yes Alfonzo [address] [address] thiazide thiazide Mera in the Luke s - morning [facility] Pantoprazol Pantoprazol Yes Alfonzo [address] e Sodium e Sodium Mera [facility] Metoprolol Metoprolol Yes Alfonzo [address] Tartrate Tartrate Mera with food L [facility] Ferrous Ferrous Yes Alfonzo [address] Sulfate Sulfate Mera [facility] Amlodipine Amlodipine Yes Alfonzo [address] Besylate Besylate Mera [facility] Gabapentin Gabapentin Yes Alfonzo [address] [address] Mera [facility] Metformin Metformin Yes Alfonzo [address] HCl HCl Mera with a [facility] - meal [facility] Vital Signs Vital Name Observation Time Observation Value Comments Source Systolic blood 2020-10-03 19:17:00 111 mm[Hg] [facility] Diastolic blood 2020-10-03 19:17:00 61 mm[Hg] [facility] Heart rate 2020-10-03 19:17:00 75 /min [facility] Body temperature 2020-10-03 19:17:00 36.94 Latesha [facility] Respiratory rate 2020-10-03 19:17:00 17 /min [facility] Oxygen saturation in 2020-10-03 19:17:00 98 /min [facility] - Arterial blood by Medical Ce nter Pulse oximetry Body weight 2020-10-03 07:05:00 51.982 kg [facility] BMI 2020-10-03 07:05:00 20.96 kg/m2 [facility] Body height 2020-09-30 05:22:00 157.5 cm [facility] Procedures Procedure Date / Time Performed Performing Clinician Sourc e POCT-GLUCOSE METER 2020-10-03 18:09:00 Alice Jackson [facility] HEPATITIS B PCR, 2020-10-03 15:49:00 Narda [facility] HEPATITIS C PCR, 2020-10-03 15:49:00 Sarkis Laboy [facility] POCT-GLUCOSE METER 2020-10-03 11:48:00 Renetta [facility] POCT-GLUCOSE METER 2020-10-03 08:34:00 Renetta [facility] CBC W/PLT COUNT & AUTO 2020-10-03 04:35:00 Nate Fields [facility] CBC (HEMOGRAM ONLY) 2020-10-03 04:35:00 Delmi Peguero [facility] BASIC METABOLIC PANEL (7) 2020-10-03 04:35:00 Delmi Peguero [facility] ACTIN (SMOOTH MUSCLE) 2020-10-03 04:35:00 [facility] IGG [facility] ALPHA FETOPROTEIN (AFP), 2020-10-03 04:35:00 [facility] TUMOR MARKER [facility] [id number], 2020-10-03 04:35:00 [facility] SERUM [facility] ANTI-NUCLEAR ANTIBODY 2020-10-03 04:35:00 [facility] (GAMAL) [facility] BILIRUBIN, DIRECT 2020-10-03 04:35:00 Wendy [facility] CERULOPLASMIN 2020-10-03 04:35:00 Wendy [facility] HEPATITIS A ANTIBODY, IGG 2020-10-03 04:35:00 [facility] HEPATITIS B SURFACE 2020-10-03 04:35:00 Wendy, Kiah [facility] ANTIBODY [facility] HEPATITIS B SURFACE 2020-10-03 04:35:00 [facility] ANTIGEN [facility] HEPATITIS B CORE 2020-10-03 04:35:00 DonnellLaurys Stationveronica, Kulwindermary annKind[facility] Hospital St L ukes - ANTIBODY, TOTAL [facility] HEPATITIS C ANTIBODY 2020-10-03 04:35:00 DonnellLaurys Stationveronica, Delfinaq [facility] - [facility] MITOCHONDRIA M2 ANTIBODY 2020-10-03 04:35:00 [facility] - (IGG) [facility] PROTHROMBIN TIME/INR 2020-10-03 04:35:00 [facility] POCT-GLUCOSE METER 2020-10-02 21:19:00 Alice Jackson [facility] CBC W/PLT COUNT & AUTO 2020-10-02 17:29:00 Nate Fields [facility] VANCOMYCIN LEVEL, TROUGH 2020-10-02 17:29:00 Severo Martinez [facility] POCT-GLUCOSE METER 2020-10-02 17:24:00 Alice Jackson [facility] POCT-GLUCOSE METER 2020-10-02 11:21:00 Alice Jackson [facility] POCT-GLUCOSE METER 2020-10-02 08:03:00 Alice Jackson [facility] CBC W/PLT COUNT & AUTO 2020-10-02 03:39:00 Nate Fields [facility] COMPREHENSIVE METABOLIC 2020-10-02 03:39:00 Delmi Peguero [facility] POCT-GLUCOSE METER 2020-10-01 21:23:00 Alice Jackson [facility] HEMOGLOBIN A1C 2020-10-01 14:34:00 Marielena Delmi [facility] CBC W/PLT COUNT & AUTO 2020-10-01 12:08:00 Adrienne Ortiz [facility] DIFFERENTIAL [facility] POCT-GLUCOSE METER 2020-10-01 10:58:00 Alice Jackson [facility] REPORT OF PROCEDURE - 2020-10-01 10:35:58 Narda [facility] ENDOSCOPY [facility] VANCOMYCIN LEVEL, RANDOM 2020-10-01 10:06:00 Meghann Grier [facility] TISSUE EXAM 2020-10-01 09:43:00 Narda [facility] UPPER ENDOSCOPY,BIOPSY 2020-10-01 09:14:00 Narda [facility] POCT-GLUCOSE METER 2020-10-01 08:23:00 Alexis Jacksonurad [facility] POCT-GLUCOSE METER 2020-10-01 05:11:00 Renetta Alice [facility] VITAMIN B12 AND FOLATE 2020-10-01 04:42:00 [facility], TIBC, % SAT. 2020-10-01 04:42:00 Ford Espinoza Rhys [facility] (WITHOUT FERRITIN) [facility] 2020-10-01 04:42:00 Ford Espinoza [facility] SARS-COV2/RT-PCR (HS & 2020-10-01 02:44:00 Nate Fields Ma [facility] - REF LABS) [facility] COMPREHENSIVE METABOLIC 2020-10-01 02:44:00 Nate Fields [facility] CBC W/PLT COUNT & AUTO 2020-10-01 02:44:00 Adrienne Ortiz [facility] - DIFFERENTIAL [facility] CBC W/PLT COUNT & AUTO 2020-09-30 20:01:00 Adrienne Ortiz [facility] DIFFERENTIAL [facility] POCT-GLUCOSE METER 2020-09-30 20:00:00 Alice Jackson [facility] CBC (HEMOGRAM ONLY) 2020-09-30 15:15:00 Nate Fields [facility] POCT-GLUCOSE METER 2020-09-30 14:20:00 Alice Jackson [facility] US ABDOMEN LIMITED 2020-09-30 11:32:00 Ford Espinoza [facility] BLOOD CULTURE 2020-09-30 09:45:00 Planegg [facility] BLOOD CULTURE 2020-09-30 09:22:00 [facility] CBC W/PLT COUNT & AUTO 2020-09-30 09:22:00 [facility] LACTIC ACID, VENOUS 2020-09-30 09:22:00 [facility] URINALYSIS W/ REFLEX 2020-09-30 09:22:00 [facility] URINE CULTURE [facility] XR CHEST 1 VIEW PORTABLE 2020-09-30 08:39:00 Adrienne Ortiz CH [facility] - / BEDSIDE [facility] HEMOGLOBIN A1C 2020-09-30 06:52:[address] [facility] POCT-GLUCOSE METER 2020-09-30 06:27:00 Ford Espinoza [facility] PROTHROMBIN TIME/INR 2020-09-30 06:22:00 Malcolm Hernandez CH, I [facility] APTT 2020-09-30 06:22:[address] [facility] COMPREHENSIVE METABOLIC 2020-09-30 06:22:00 Malcolm Hernandez [facility] REPORT OF PROCEDURE - 2020-09-30 00:00:[address] [facility] - ENDOSCOPY SCAN Scanning [facility] Plan of Care Planned Activity Planned [...] Medica l Center colon (procedure) [code = 144650942] Future Scheduled [address] - Test 00:00:00 malignant neoplasm of Medica l Center colon (procedure) [code = 313642242] Future Scheduled [address] - Test 00:00:00 malignant neoplasm of Medica l Center colon (procedure) [code = 327226368] Encounters Start End Encounter Admission Attending Care Care Encounter Source Date/Time Date/Time Type Type Clinicians Facility Department ID 2021-02-24 2021-02-24 Outpatient [facility] [id number] [facility] 2021-02-17 2021-02-17 Outpatient [facility] [id number] [facility] 2021-02-10 2021-02-10 Outpatient [facility] [id number] [facility] 2020-06-24 2020-06-24 Outpatient [facility] [id number] [facility] 2020-06-03 2020-06-03 Outpatient [facility] [id number] [facility] 2020-05-25 2020-05-25 Outpatient [facility] [id number] [facility] 2020-05-13 2020-05-13 Outpatient [facility]LML[facility]LML[facility] [id number] [facility] 2020-04-29 2020-04-29 Outpatient [facility]ML[facility]LML[facility] [id number] [facility] 2020-04-15 2020-04-15 Outpatient [facility]LMLC [id number] [facility] 2020-04-15 2020-04-15 Outpatient [facility] [id number] [facility] 2020-04-07 2020-04-07 Outpatient [facility] [id number] [facility] 2020-03-26 2020-03-26 [facility] [id number] 09:10:00 09:10:00 t [employer] [facility] Medicine l Medicine Outpati ent Clinics 2019-09-21 2019-09-21 [facility] [id number] 21:47:00 21:47:00 t [facility] Medicine l Medicine Outpati ent Clinics 2019-09-19 2019-09-19 [facility] [id number] 13:30:00 13:30:00 [facility] l [facility] Outpati ent Clinics 2019-09-10 2019-09-10 [facility] [id number] 10:15:00 10:15:00 t [facility] [employer] [facility] Medicine l Medicine Outpati ent Clinics 2019-06-20 2019-06-20 [facility] [id number] [facility] 13:20:00 13:20:00 [facility] 2019-03-21 2019-03-21 Outpatient Giana Fariat [id number] [facility] 11:20:00 11:20:00 [facility] ent Clinics Results Test Description Test [...] patients withautoimmune hepatitis (AIH) type 1, approxi cgysjq60% of patients with a utoimmune cholangitis,chitra roximately 30% of patients with p rimary biliarycirrhosi s, and approximately 2 % of healthy people.High giulia ues are closely correlated with AIH type 1. ELIANA (test code = Performing Lab ELIANA) [employer] [address] [place] [address] Obdulia Ulrich MD, PhD, MARINA [facility] (Smooth Muscle) Antibody, [id number] 01:25:00 Test Item Value Reference Range Interpretation [...] ELIANA (test code Performing Lab = ELIANA) [employer] [address] [place] [address] Obdulia Ulrich MD, PhD, MARINA [facility] (Smooth Muscle) Antibody, [id number] 01:25:00 Test Item Value Reference Range Interpretation Comments Anti-Smooth <20 See Note: U Reference Range :<20 Muscle Ab NEGATIVE> O R = 20 (test code = POSITIVE Antibo dies 1220381) recognizing act in are the main compon [...] (test code Performing Lab = ELIANA) [email or web address] [address] [place] [address] [place] [address] Obdulia Ulrich MD, PhD, MARINA [facility]eruloplasmin2021-03-24 14:07:00 Test Item Value Reference Range Interpretation Comments Ceruloplasmin (test code 39 mg/dL 18-36 H = 7091742) ELIANA (test code = ELIANA) Performing Lab *GIULIA [facility] [place], [address] [place] [phone] Nereida Rocha MD Lab Interpretation (test Abnormal code = 16301-1) [facility]eruloplasmin2021-03-24 14:07:00 Test Item Value Reference Range Interpretation Comments Ceruloplasmin (test code 39 mg/dL 18-36 H = 5618020) ELIANA (test code = ELIANA) Performing Lab *GIULIA [facility], [address] [place] [phone] Nereida Rocha MD Lab Interpretation (test Abnormal code = 09530-2) [facility]eruloplasmin2021-03-24 14:07:00 Test Item Value Reference Range Interpretation Comments Ceruloplasmin (test code 39 mg/dL 18-36 H = 2651515) ELIANA (test code = ELIANA) Performing Lab *GIULIA [facility], [address] [place] [phone] T Aj MAXWELL Lab Interpretation (test Abnormal code = 63898-8) [facility]ura[facility]ochond[facility] M2 Antibody (IgG)2020-10-06 13:29:00 Test Item Value Reference Range Interpretation Comments Mitochondria M2 Ab 20.3 U See Note: H Reference (test code = 5954807) Range: NEGATIVE: < OR = 20.0EQUIVOCAL: 20.1-24.9POSITI VE: > OR = 25.0 ELIANA (test code = ELIANA) Performing Lab EZ [facility] [address] [place] [address] Obdulia Ulrich MD, PhD, MARINA Lab Interpretation Abnormal (test code = 79805-0) [facility]ura[facility]ochond[facility] M2 Antibody (IgG)2020-10-06 13:29:00 Test Item Value Reference Range Interpretation Comments Mitochondria M2 Ab 20.3 U See Note: H Reference (test code = 4298583) Range: NEGATIVE: < OR = 20.0EQUIVOCAL: 20.1-24.9POSITI VE: > OR = 25.0 ELIANA (test code = ELIANA) Performing Lab EZ [facility] [address] [place] [address] Obdulia Ulrich MD, PhD, MARINA Lab Interpretation Abnormal (test code = 90062-4) [facility] M2 Antibody (IgG)2020-10-06 13:29:00 Test Item Value Reference Range Interpretation Comments Mitochondria M2 Ab 20.3 U See Note: H Reference (test code = 1653839) Range: NEGATIVE: < OR = 20.0EQUIVOCAL: 20.1-24.9POSITI VE: > OR = 25.0 ELIANA (test code = ELIANA) Performing Lab EZ [facility] [address] [place] [address] Obdulia Ulrich MD, PhD, MARINA Lab Interpretation Abnormal (test code = 34615-2) [facility] Culture - Routine (Left Venipuncture) 2020-10-05 14:00:00 Test Item Value Reference Range Interpretation Comments Result (test code = No growth in 5 days 6463-4) [facility]) 2020-10-05 14:00:00 Test Item Value Reference Range Interpretation Comments Result (test code = No growth in 5 days 6463-4) [facility] Culture - Routine (Left Venipuncture) 2020-10-05 14:00:00 Test Item Value Reference Range Interpretation Comments Result (test code = No growth in 5 days 6463-4) [facility] [id number] 14:00:00 Test Item Value Reference Range Interpretation Comments CULTURE (BEAKER) (test No growth in 5 days code = 1095) BLOOD [id number] 11:00:00 Test Item Value Reference Range Interpretation Comments CULTURE (BEAKER) (test No growth in 5 days code = 1095) Hepatitis B PCR, [id number] 20:15:00 Test Item Value Reference Range Interpretation Comments HBV PCR, Quantitative HBV DNA not detected HBV DNA not (test code = 15666-7) detected ELIANA (test code = ELIANA) This test uses a Real-Time Polymerase Chain Reaction (RT-PCR) methodology and was performed using MADONNA AmpliPrep/MADONNA TaqMan HBV Test, v2.0 ([employer] Reportable range for this assay is 20 - 170,000,000 IU per mL (1.30 - 8.23 Log IU/mL). Lab Interpretation Normal (test code = 17949-1) [facility] PCR, [id number] 20:15:00 Test Item Value Reference Range Interpretation Comments HBV PCR, Quantitative HBV DNA not detected HBV DNA not (test code = 17274-6) detected ELIANA (test code = ELIANA) This test uses a Real-Time Polymerase Chain Reaction (RT-PCR) methodology and was performed using [employer] AmpliPrep/MAD[employer]NA TaqMan HBV Test, v2.0 ([employer] Reportable range for this assay is 20 - 170,000,000 IU per mL (1.30 - 8.23 Log IU/mL). Lab Interpretation Normal (test code = 55690-3) [facility] PCR, [id number] 20:15:00 Test Item Value Reference Range Interpretation Comments HBV PCR, Quantitative HBV DNA not detected HBV DNA not (test code = 83198-4) detected ELIANA (test code = ELIANA) This test uses a Real-Time Polymerase Chain Reaction (RT-PCR) methodology and was performed using [employer] AmpliPrep/MAD[employer] TaqMan HBV Test, v2.0 ([employer] Reportable range for this assay is 20 - 170,000,000 IU per mL (1.30 - 8.23 Log IU/mL). Lab Interpretation Normal (test code = 25381-3) [facility] B PCR, [id number] 20:15:00 Test Item Value Reference Range Interpretation Comments HBV RESULT COMPONENT HBV DNA not detected HBV DNA not detected (BEAKER) (test code = 2701) This test uses a Real-Time Polymerase Chain Reaction (RT-PCR) methodology and was performed using [employer] AmpliPrep/MAD[employer]NA TaqMan HBV Test, v2.0 ([employer]Reportable range for this assay is 20 - 170,000,000 IU per mL (1.30 - 8.23 Log IU/mL).Hepatitis C PCR, [id number] 19:56:00 Test Item Value Reference Range Interpretation Comments HCV PCR, Quantitative [id number] See_Comment H [Auto mated (test code = 75890-7) messag e] The system which generated this result transmitted reference range : <15 IU/mL. The reference range was not used to interpret this result as normal/abnormal . ELIANA (test code = ELIANA) This test uses a Real-Time Polymerase Chain Reaction (RT-PCR) methodology and was performed using [employer] Ampliprep/MAD[employer]NA TaqMan HCV test kit version 2.0 ([employer] Reportable range for this assay is 15 - 100,000,000 IU per mL (1.18 - 8.00 Log IU/mL). Lab Interpretation Abnormal (test code = 39907-1) [facility] C PCR, [id number] 19:56:00 Test Item Value Reference Range Interpretation Comments HCV PCR, Quantitative [id number] See_Comment H [Auto mated (test code = 62999-6) messag e] The system which generated this result transmitted reference range : <15 IU/mL. The reference range was not used to interpret this result as normal/abnormal . ELIANA (test code = ELIANA) This test uses a Real-Time Polymerase Chain Reaction (RT-PCR) methodology and was performed using [employer] Ampliprep/MAD[employer]NA TaqMan HCV test kit version 2.0 ([employer] Reportable range for this assay is 15 - 100,000,000 IU per mL (1.18 - 8.00 Log IU/mL). Lab Interpretation Abnormal (test code = 24134-4) [facility] C PCR, [id number] 19:56:00 Test Item Value Reference Range Interpretation Comments HCV PCR, Quantitative [id number] See_Comment H [Auto mated (test code = 86390-2) messag e] The system which generated this result transmitted reference range : <15 IU/mL. The reference range was not used to interpret this result as normal/abnormal . ELIANA (test code = ELIANA) This test uses a Real-Time Polymerase Chain Reaction (RT-PCR) methodology and was performed using [employer] Ampliprep/MADONNA TaqMan HCV test kit version 2.0 ([employer] Reportable range for this assay is 15 - 100,000,000 IU per mL (1.18 - 8.00 Log IU/mL). Lab Interpretation Abnormal (test code = 89499-3) [facility] C PCR, [id number] 19:56:00 Test Item Value Reference Range Interpretation Comments HCV NUMERIC RESULT (BEAKER) 360607 IU/mL <15 H (test code = 2700) This test uses a Real-Time Polymerase Chain Reaction (RT-PCR) methodology and was performed using [employer] Ampliprep/MADONNA TaqMan HCV test kit version 2.0 ([employer]).Reportable range for this assay is 15 - 100,000,000 IU per mL (1.18 - 8.00 Log IU/mL).Anti-Nuclear Antibody (GAMAL) 2020-10-04 12:41:00 Test Item Value Reference Range Interpretation Comments GAMAL (test code = 39808-0) Negative Negative ELIANA (test code = ELIANA) Test performed by IFA method. Lab Interpretation (test Normal code = 59628-0) [facility]uclear Antibody (GAMAL)2020-10-04 12:41:00 Test Item Value Reference Range Interpretation Comments GAMAL (test code = 05728-6) Negative Negative ELIANA (test code = ELIANA) Test performed by IFA method. Lab Interpretation (test Normal code = 47942-9) [facility]ura[facility]uclear Antibody (GAMAL)2020-10-04 12:41:00 Test Item Value Reference Range Interpretation Comments GAMAL (test code = 38780-4) Negative Negative ELIANA (test code = ELIANA) Test performed by IFA method. Lab Interpretation (test Normal code = 17278-0) [facility] (GAMAL)2020-10-04 12:41:00 Test Item Value Reference Range Interpretation Comments ANTI-NUCLEAR ANTIBODY (GAMAL) (BEAKER) Negative Negative (test code = 418) Test performed by IFA method.POC-Glucose [id number] 18:23:00 Test Item Value Reference Range Interpretation Comments POC-Glucose Meter (test 127 mg/dL 70-110 H : TE STED AT [facility] code = 1538) [address] [place] [address], 770 30: [employer]/Techni min ID = [id number] for Igbalajobi, She neto Lab Interpretation (test Abnormal code = 24351-3) [facility]-Glucose [id number] 18:23:00 Test Item Value Reference Range Interpretation Comments POC-Glucose Meter (test 127 mg/dL 70-110 H : TE STED AT [facility] code = 1538) [address] [place] [address], 770 30: [employer]/Techni min ID = [id number] for Igbalajobi, She neto Lab Interpretation (test Abnormal code = 94194-9) [facility]-Glucose [id number] 18:23:00 Test Item Value Reference Range Interpretation Comments POC-Glucose Meter (test 127 mg/dL 70-110 H : TE STED AT [facility] code = 1538) [address] [facility], 770 30: [employer]/Techni min ID = [id number] for Igbalajobi, She neto Lab Interpretation (test Abnormal code = 16970-3) [facility]-GLUCOSE [id number] 18:23:00 Test Item Value Reference Range Interpretation Comments POC-GLUCOSE METER 127 mg/dL 70-110 H : TESTED A T [facility] 6720 (BEAKER) (test code = [facility], 1538) [address]: [employer]/Techni min ID = [id number] for Katelynn Ramirez POCT-GLUCOSE [id number] 12:00:00 Test Item Value Reference Range Interpretation Comments POC-GLUCOSE METER 78 mg/dL 70-110 : TESTED A T [facility] 6720 (BEAKER) (test code = [facility], 1538) [address]15[address]: [employer]/Techni min ID = [id number] for Kassandra Woods Hepatitis B core antibody, [id number] 10:45:00 Test Item Value Reference Range Interpretation Comments Hep B Core Total Ab (test Reactive Nonreactive A code = 60173-8) ELIANA (test code = ELIANA) [employer] ID - DBOperator ID - DBOperator ID - DB Lab Interpretation (test Abnormal code = 42158-9) [facility]tis B core antibody, [id number] 10:45:00 Test Item Value Reference Range Interpretation Comments Hep B Core Total Ab (test Reactive Nonreactive A code = 59472-1) ELIANA (test code = ELIANA) [employer] ID - DBOperator ID - DBOperator ID - DB Lab Interpretation (test Abnormal code = 84044-8) [facility] B core antibody, [id number] 10:45:00 Test Item Value Reference Range Interpretation Comments Hep B Core Total Ab (test Reactive Nonreactive A code = 99192-2) ELIANA (test code = ELIANA) [employer] ID - DBOperator ID - DBOperator ID - DB Lab Interpretation (test Abnormal code = 24429-4) [facility]HECOMMON[facility]PITALTIS B CORE ANTIBODY, [id number] 10:45:00 Test Item Value Reference Range Interpretation Comments HEPATITIS B CORE TOTAL ANTIBODY Reactive Nonreactive A (NELAKER) (test code = 497) [employer] ID - DBOperator ID - DBOperator ID - DBPOCT-GLUCOSE [id number] 08:50:00 Test Item Value Reference Range Interpretation Comments POC-GLUCOSE METER 83 mg/dL 70-110 : TESTED A T [facility] 6720 (BEAKER) (test code = [facility], 1538) [address]119: [employer]/Techni min ID = [id number] for Kassandra Woods Ggpsz-2-xjijoxxwsbj1387-03-21 08:30:00 Test Item Value Reference Range Interpretation Comments A-1 Antitrypsin (test 189.40 mg/dL 90-200 code = 1825-9) ELIANA (test code = ELIANA) [employer] ID - DBOperator ID - DBOperator ID - DB Lab Interpretation (test Normal code = 03286-3) [facility]uraAlpha-1-[id number] 08:30:00 Test Item Value Reference Range Interpretation Comments A-1 Antitrypsin (test 189.40 mg/dL 90-200 code = 1825-9) ELIANA (test code = ELIANA) [employer] ID - DBOperator ID - DBOperator ID - DB Lab Interpretation (test Normal code = 05617-2) [facility]uraAlpha-1-[id number] 08:30:00 Test Item Value Reference Range Interpretation Comments A-1 Antitrypsin (test 189.40 mg/dL 90-200 code = 1825-9) ELIANA (test code = ELIANA) [employer] ID - DBOperator ID - DBOperator ID - DB Lab Interpretation (test Normal code = 69608-7) [facility]uraALPHA-1-[id number] 08:30:00 Test Item Value Reference Range Interpretation Comments ALPHA-1 ANTITRYPSIN (BEAKER) 189.40 mg/dL 90.00-200.00 (test code = 502) [employer] ID - DBOperator ID - DBOperator ID - DBHepatitis A antibody, IgG 2020-10-03 07:01:00 Test Item Value Reference Range Interpretation Comments Hep A IgG (test code = Reactive Nonreactive A 70890-5) LEIANA (test code = ELIANA) [employer] ID - DB Lab Interpretation (test Abnormal code = 92497-4) [facility]uraHepatitis A antibody, [id number] 07:01:00 Test Item Value Reference Range Interpretation Comments Hep A IgG (test code = Reactive Nonreactive A 54388-7) ELIANA (test code = ELIANA) [employer] ID - DB Lab Interpretation (test Abnormal code = 75881-1) [facility] hospitaltis A antibody, [id number] 07:01:00 Test Item Value Reference Range Interpretation Comments Hep A IgG (test code = Reactive Nonreactive A 57038-0) ELIANA (test code = ELIANA) [employer] ID - DB Lab Interpretation (test Abnormal code = 67448-6) [facility] [id number] 07:01:00 Test Item Value Reference Range Interpretation Comments HEPATITIS A IGG ANTIBODY (BEAKER) Reactive Nonreactive A (test code = 2797) [employer] ID - DBHepatijohn[facility] C okhsfuxu7378-30-04 06:59:00 Test Item Value Reference Range Interpretation Comments Hepatitis C Ab (test code = Reactive Nonreactive A 53503-7) ELIANA (test code = ELIANA) [employer] ID - DB Lab Interpretation (test Abnormal code = 87789-1) [facility] C spbqtqet2515-59-78 06:59:00 Test Item Value Reference Range Interpretation Comments Hepatitis C Ab (test code = Reactive Nonreactive A 73478-4) ELIANA (test code = ELIANA) [employer] ID - DB Lab Interpretation (test Abnormal code = 12576-4) [facility] C wlxyxrah6385-09-03 06:59:00 Test Item Value Reference Range Interpretation Comments Hepatitis C Ab (test code = Reactive Nonreactive A 24009-6) ELIANA (test code = ELIANA) [employer] ID - DB Lab Interpretation (test Abnormal code = 23013-5) [facility] C [id number] 06:59:00 Test Item Value Reference Range Interpretation Comments HEPATITIS C ANTIBODY (BEAKER) (test Reactive Nonreactive A code = 367) [employer] ID - DBBasic Metabolic [id number] 06:38:00 Test Item Value Reference Range Interpretation [...] (test code = 7.8 mg/dL 8.4-10.2 L 92421-0) EGFR (test code = 39 mL/min/1.73 [place] [address]-7) NOT ACCURATE CREATININE CLEARANCE IN PREDICTING GLOMERULAR FILTRATION RATE . ESTIMATED GFR I S NOT APPLICABLE FOR DIALYSIS PATIENTS. ELIANA (test code = ELIANA) [employer] ID - EDASI Lab Interpretation Abnormal (test code = 27852-3) [facility]uraBilirubin, [id number] 06:38:00 Test Item Value Reference Range Interpretation Comments Bilirubin, Direct (test 0.2 mg/dL 0.1-0.5 code = 1968-01) ELIANA (test code = ELIANA) [employer] ID - EDASI Lab Interpretation (test Normal code = 85528-1) [facility]uraBasic Metabolic [id number] 06:38:00 Test Item Value Reference Range Interpretation [...] (test code = 7.8 mg/dL 8.4-10.2 L 67742-4) EGFR (test code = 39 mL/min/1.73 [place] [address]-9) NOT ACCURATE CREATININE CLEARANCE IN PREDICTING GLOMERULAR FILTRATION RATE . ESTIMATED GFR I S NOT APPLICABLE FOR DIALYSIS PATIENTS. ELIANA (test code = ELIANA) [employer] ID - EDASI Lab Interpretation Abnormal (test code = 22849-0) [facility]uraBilirubin, [id number] 06:38:00 Test Item Value Reference Range Interpretation Comments Bilirubin, Direct (test 0.2 mg/dL 0.1-0.5 code = 1968-7) ELIANA (test code = ELIANA) [employer] ID - EDASI Lab Interpretation (test Normal code = 75005-5) [facility]uraBasic Metabolic [id number] 06:38:00 Test Item Value Reference Range Interpretation [...] (test code = 7.8 mg/dL 8.4-10.2 L 21264-6) EGFR (test code = 39 mL/min/1.73 [place] [address]-7) NOT ACCURATE CREATININE CLEARANCE IN PREDICTING GLOMERULAR FILTRATION RATE . ESTIMATED GFR I S NOT APPLICABLE FOR DIALYSIS PATIENTS. ELIANA (test code = ELIANA) [employer] ID - [employer] Lab Interpretation Abnormal (test code = 89335-7) [facility]uraBilirubin, [id number] 06:38:00 Test Item Value Reference Range Interpretation Comments Bilirubin, Direct (test 0.2 mg/dL 0.1-0.5 code = 1968-7) ELIANA (test code = ELIANA) [employer] ID - EDThe [employer] Lab Interpretation (test Normal code = 82097-7) [facility]uraBILIRUBIN, [id number] 06:38:00 Test Item Value Reference Range Interpretation Comments BILIRUBIN DIRECT (BEAKER) (test 0.2 mg/dL 0.1-0.5 code = 706) [employer] ID - EDASIBASI METABOLIC [id number] 06:38:00 Test Item Value Reference Range Interpretation [...] S NOT APPLICABLE FOR DIALYSIS PATIEN TS. [employer] ID - EDASIHepatitis B surface [id number] 06:14:00 Test Item Value Reference Range Interpretation Comments Hep B S Ab (test code <8.0 See_Comment [Auto mated = 17076-0) message] The system which generated this result transmit altagracia reference range : <8.0 mIU/mL. Th e reference range was not used to interpret this result as normal/abnormal . ELIANA (test code = ELIANA) [employer] ID - DB Lab Interpretation Normal (test code = 87927-6) [facility] B surface [id number] 06:14:00 Test Item Value Reference Range Interpretation Comments Hep B S Ab (test code <8.0 See_Comment [Auto mated = 45105-0) message] The system which generated this result transmit altagracia reference range : <8.0 mIU/mL. Th e reference range was not used to interpret this result as normal/abnormal . ELIANA (test code = ELIANA) [employer] ID - DB Lab Interpretation Normal (test code = 95309-7) [facility] B surface [id number] 06:14:00 Test Item Value Reference Range Interpretation Comments Hep B S Ab (test code <8.0 See_Comment [Auto mated = 88743-3) message] The system which generated this result transmit altagracia reference range : <8.0 mIU/mL. Th e reference range was not used to interpret this result as normal/abnormal . ELIANA (test code = ELIANA) [employer] ID - DB Lab Interpretation Normal (test code = 90812-4) [facility]uraHEPATITIS B SURFACE [id number] 06:14:00 Test Item Value Reference Range Interpretation Comments HEPATITIS B SURFACE ANTIBODY < mIU/mL <8.0 (BEAKER) (test code = 647) [employer] ID - DBHepatitis B surface [id number] 06:13:00 Test Item Value Reference Range Interpretation Comments HBsAg Screen (test code Nonreactive Nonreactive = 5195-3) ELIANA (test code = ELIANA) Specimen is considered negative for HBsAg. Lab Interpretation (test Normal code = 17860-8) [facility]uraAlpha fetoprotein (AFP), tumor [id number] 06:13:00 Test Item Value Reference Range Interpretation Comments Alpha-Fetoprotein (test code 2.1 ng/mL <10.0 = 1834-1) ELIANA (test code = ELIANA) [employer] ID - DB Lab Interpretation (test Normal code = 04093-5) [facility]uraHepatitis B surface [id number] 06:13:00 Test Item Value Reference Range Interpretation Comments HBsAg Screen (test code Nonreactive Nonreactive = 5195-3) ELIANA (test code = ELIANA) Specimen is considered negative for HBsAg. Lab Interpretation (test Normal code = 54299-7) [facility]uraAlpha fetoprotein (AFP), tumor [id number] 06:13:00 Test Item Value Reference Range Interpretation Comments Alpha-Fetoprotein (test code 2.1 ng/mL <10.0 = 1834-1) ELIANA (test code = ELIANA) [employer] ID - DB Lab Interpretation (test Normal code = 67451-9) [facility]uraHepatitis B surface [id number] 06:13:00 Test Item Value Reference Range Interpretation Comments HBsAg Screen (test code Nonreactive Nonreactive = 5195-3) ELIANA (test code = ELIANA) Specimen is considered negative for HBsAg. Lab Interpretation (test Normal code = 09410-4) [facility]uraAlpha fetoprotein (AFP), tumor [id number] 06:13:00 Test Item Value Reference Range Interpretation Comments Alpha-Fetoprotein (test code 2.1 ng/mL <10.0 = 1834-1) ELIANA (test code = ELIANA) [employer] ID - DB Lab Interpretation (test Normal code = 27020-2) [facility]uraHEPATITIS B SURFACE [id number] 06:13:00 Test Item Value Reference Range Interpretation Comments HEPATITIS B SURFACE ANTIGEN (2) Nonreactive Nonreactive (BEAKER) (test code = 2585) Specimen is considered negative for HBsAg.ALPHA FETOPROTEIN (AFP), TUMOR MARKER 2020-10-03 06:13:00 Test Item Value Reference Range Interpretation Comments ALPHA-FETOPROTEIN (BEAKER) (test 2.1 ng/mL <10.0 code = 1094) [employer] ID - DBProthrombin time/[id number] 05:06:00 Test Item Value Reference Interpretation Comments Range Protime (test code = 14.4 See_Comment H [Autom ated 5902-2) message] The system which generated this result transmitted reference range : 11.9 - 14.2 seconds. The reference range was not used to interpret this result as normal/abnormal . INR (test code = 1.16 See_Comment [Automated 5781-6) message] The system which generated this result [...] valves. Lab Interpretation Abnormal (test code = 31892-2) [facility]uraProthrombin time/[id number] 05:06:00 Test Item Value Reference Interpretation Comments Range Protime (test code = 14.4 See_Comment H [Autom ated 5902-2) message] The system which generated this result transmitted reference range : 11.9 - 14.2 seconds. The reference range was not used to interpret this result as normal/abnormal . INR (test code = 1.16 See_Comment [Automated 0161-6) message] The system which generated this result [...] valves. Lab Interpretation Abnormal (test code = 38479-3) [facility]uraProthrombin time/[id number] 05:06:00 Test Item Value Reference Interpretation Comments Range Protime (test code = 14.4 See_Comment H [Autom ated 7222-2) message] The system which generated this result transmitted reference range : 11.9 - 14.2 seconds. The reference range was not used to interpret this result as normal/abnormal . INR (test code = 1.16 See_Comment [Automated 8301-6) message] The system which generated this result [...] valves. Lab Interpretation Abnormal (test code = 65948-0) [facility]uraPROTHROMBIN TIME/[id number] 05:06:00 Test Item Value Reference Range Interpretation Comments PROTIME (BEAKER) 14.4 seconds 11.9-14.2 H (test code = 759) INR (BEAKER) (test 1.16 See_Comment [Automat ed message] code = 370) The system [employer] generated this result transmitted ref erence range: [...] 8.8 See_Comment [A utomated message] The system [employer] generated this result transmitted ref erence range: 3.5 - 10 .5 K/L. The refe rence range was not u sed to interpret this result as normal/abnor mal. RBC (test code = 789-8) 2.56 See_Comment L [Au tomated message] The system [employer] generated this result transmitted ref erence range: 4.63 - 6 .08 M/L. The refe rence range was not u sed to interpret this result as normal/abnor mal. MCHC (test code = 786-4) 31.8 See_Comment L [A utomated message] The system [employer] generated this result transmitted ref erence range: [...] See_Comment [Aut omated message] 777-3) The system [employer] generated this result transmitted ref erence range: 150 - 45 0 K/CU MM. The referen ce range was not u sed to interpret this result as normal/abnor mal. MPV (test code = 10.2 fL 9.4-12.4 24550-6) nRBC (test code = 413) 0 See_Comment [Aut omated message] The system [employer] generated this result transmitted ref erence range: 0 - 0 /1 00 WBC. The refere nce range was not u sed to interpret this result as normal/abnor mal. Lab Interpretation (test Abnormal code = 73640-6) [facility] with platelet count + automated [id number] 04:58:00 Test Item Value Reference Range Interpretation Comments WBC (test code = 6690-2) 8.8 See_Comment [A utomated message] The system [employer] generated this result transmitted ref erence range: 3.5 - 10 .5 K/L. The refe rence range was not u sed to interpret this result as normal/abnor mal. RBC (test code = 789-8) 2.56 See_Comment L [Au tomated message] The system [employer] generated this result transmitted ref erence range: 4.63 - 6 .08 M/L. The refe rence range was not u sed to interpret this result as normal/abnor mal. MCHC (test code = 786-4) 31.8 See_Comment L [A utomated message] The system [employer] generated this result transmitted ref erence range: [...] See_Comment [Aut omated message] 777-3) The system [employer] generated this result transmitted ref erence range: 150 - 45 0 K/CU MM. The referen ce range was not u sed to interpret this result as normal/abnor mal. MPV (test code = 10.2 fL 9.4-12.4 40661-3) nRBC (test code = 413) 0 See_Comment [Aut omated message] The system [employer] generated this result transmitted ref erence range: [...] H [Aut omated message] 670) The system [employer] generated this result transmitted ref erence range: 1.78 - 5 .38 K/L. The refe rence range was not u sed to interpret this result as normal/abnor mal. # Lymphs (test code = 0.86 See_Comment L [Auto mated message] 414) The system [employer] generated this result transmitted ref erence range: 1.32 - 3 .57 K/L. The refe rence range was not u sed to interpret this result as normal/abnor mal. # Monos (test code = 0.72 See_Comment [Autom ated message] 415) The system [employer] generated this result transmitted ref erence range: 0.30 - 0 .82 K/L. The refe rence range was not u sed to interpret this result as normal/abnor mal. # Eos (test code = 416) 0.12 See_Comment [Au tomated message] The system [employer] generated this result transmitted ref erence range: 0.04 - 0 .54 K/L. The refe rence range was not u sed to interpret this result as normal/abnor mal. # Baso (test code = 417) 0.02 See_Comment [A utomated message] The system [employer] generated this result transmitted ref erence range: 0.01 - 0 .08 K/L. The refe rence range was not u sed to interpret this result as normal/abnor mal. Immature 1 % 0-1 Granulocytes-Relative (test code = 2801) Lab Interpretation (test Abnormal code = 38328-4) [facility] (Hemogram only)2020-10-03 04:58:00 Test Item Value Reference Range Interpretation Comments WBC (test code = 6690-2) 8.8 See_Comment [A utomated message] The system [employer] generated this result transmitted ref erence range: 3.5 - 10 .5 K/L. The refe rence range was not u sed to interpret this result as normal/abnor mal. RBC (test code = 789-8) 2.56 See_Comment L [Au tomated message] The system [employer] generated this result transmitted ref erence range: 4.63 - 6 .08 M/L. The refe rence range was not u sed to interpret this result as normal/abnor mal. MCHC (test code = 786-4) 31.8 See_Comment L [A utomated message] The system [employer] generated this result transmitted ref erence range: [...] See_Comment [Aut omated message] 777-3) The system [employer] generated this result transmitted ref erence range: 150 - 45 0 K/CU MM. The referen ce range was not u sed to interpret this result as normal/abnor mal. MPV (test code = 10.2 fL 9.4-12.4 05835-6) nRBC (test code = 413) 0 See_Comment [Aut omated message] The system [employer] generated this result transmitted ref erence range: 0 - 0 /1 00 WBC. The refere nce range was not u sed to interpret this result as normal/abnor mal. Lab Interpretation (test Abnormal code = 67189-3) [facility] with platelet count + automated [id number] 04:58:00 Test Item Value Reference Range Interpretation Comments WBC (test code = 6690-2) 8.8 See_Comment [A utomated message] The system [employer] generated this result transmitted ref erence range: 3.5 - 10 .5 K/L. The refe rence range was not u sed to interpret this result as normal/abnor mal. RBC (test code = 789-8) 2.56 See_Comment L [Au tomated message] The system [employer] generated this result transmitted ref erence range: 4.63 - 6 .08 M/L. The refe rence range was not u sed to interpret this result as normal/abnor mal. MCHC (test code = 786-4) 31.8 See_Comment L [A utomated message] The system [employer] generated this result transmitted ref erence range: [...] See_Comment [Aut omated message] 777-3) The system [employer] generated this result transmitted ref erence range: 150 - 45 0 K/CU MM. The referen ce range was not u sed to interpret this result as normal/abnor mal. MPV (test code = 10.2 fL 9.4-12.4 65913-5) nRBC (test code = 413) 0 See_Comment [Aut omated message] The system [employer] generated this result transmitted ref erence range: [...] H [Aut omated message] 670) The system [employer] generated this result transmitted ref erence range: 1.78 - 5 .38 K/L. The refe rence range was not u sed to interpret this result as normal/abnor mal. # Lymphs (test code = 0.86 See_Comment L [Auto mated message] 414) The system [employer] generated this result transmitted ref erence range: 1.32 - 3 .57 K/L. The refe rence range was not u sed to interpret this result as normal/abnor mal. # Monos (test code = 0.72 See_Comment [Autom ated message] 415) The system [employer] generated this result transmitted ref erence range: 0.30 - 0 .82 K/L. The refe rence range was not u sed to interpret this result as normal/abnor mal. # Eos (test code = 416) 0.12 See_Comment [Au tomated message] The system [employer] generated this result transmitted ref erence range: 0.04 - 0 .54 K/L. The refe rence range was not u sed to interpret this result as normal/abnor mal. # Baso (test code = 417) 0.02 See_Comment [A utomated message] The system [employer] generated this result transmitted ref erence range: 0.01 - 0 .08 K/L. The refe rence range was not u sed to interpret this result as normal/abnor mal. Immature 1 % 0-1 Granulocytes-Relative (test code = 2801) Lab Interpretation (test Abnormal code = 22957-1) [facility] (Hemogram only)2020-10-03 04:58:00 Test Item Value Reference Range Interpretation Comments WBC (test code = 6690-2) 8.8 See_Comment [A utomated message] The system [employer] generated this result transmitted ref erence range: 3.5 - 10 .5 K/L. The refe rence range was not u sed to interpret this result as normal/abnor mal. RBC (test code = 789-8) 2.56 See_Comment L [Au tomated message] The system [employer] generated this result transmitted ref erence range: 4.63 - 6 .08 M/L. The refe rence range was not u sed to interpret this result as normal/abnor mal. MCHC (test code = 786-4) 31.8 See_Comment L [A utomated message] The system [employer] generated this result transmitted ref erence range: [...] See_Comment [Aut omated message] 777-3) The system [employer] generated this result transmitted ref erence range: 150 - 45 0 K/CU MM. The referen ce range was not u sed to interpret this result as normal/abnor mal. MPV (test code = 10.2 fL 9.4-12.4 64685-6) nRBC (test code = 413) 0 See_Comment [Aut omated message] The system [employer] generated this result transmitted ref erence range: 0 - 0 /1 00 WBC. The refere nce range was not u sed to interpret this result as normal/abnor mal. Lab Interpretation (test Abnormal code = 84157-3) [facility] with platelet count + automated [id number] 04:58:00 Test Item Value Reference Range Interpretation Comments WBC (test code = 6690-2) 8.8 See_Comment [A utomated message] The system [employer] generated this result transmitted ref erence range: 3.5 - 10 .5 K/L. The refe rence range was not u sed to interpret this result as normal/abnor mal. RBC (test code = 789-8) 2.56 See_Comment L [Au tomated message] The system [employer] generated this result transmitted ref erence range: 4.63 - 6 .08 M/L. The refe rence range was not u sed to interpret this result as normal/abnor mal. MCHC (test code = 786-4) 31.8 See_Comment L [A utomated message] The system [employer] generated this result transmitted ref erence range: [...] See_Comment [Aut omated message] 777-3) The system [employer] generated this result transmitted ref erence range: 150 - 45 0 K/CU MM. The referen ce range was not u sed to interpret this result as normal/abnor mal. MPV (test code = 10.2 fL 9.4-12.4 23471-0) nRBC (test code = 413) 0 See_Comment [Aut omated message] The system [employer] generated this result transmitted ref erence range: [...] H [Aut omated message] 670) The system [employer] generated this result transmitted ref erence range: 1.78 - 5 .38 K/L. The refe rence range was not u sed to interpret this result as normal/abnor mal. # Lymphs (test code = 0.86 See_Comment L [Auto mated message] 414) The system [employer] generated this result transmitted ref erence range: 1.32 - 3 .57 K/L. The refe rence range was not u sed to interpret this result as normal/abnor mal. # Monos (test code = 0.72 See_Comment [Autom ated message] 415) The system [employer] generated this result transmitted ref erence range: 0.30 - 0 .82 K/L. The refe rence range was not u sed to interpret this result as normal/abnor mal. # Eos (test code = 416) 0.12 See_Comment [Au tomated message] The system [employer] generated this result transmitted ref erence range: 0.04 - 0 .54 K/L. The refe rence range was not u sed to interpret this result as normal/abnor mal. # Baso (test code = 417) 0.02 See_Comment [A utomated message] The system [employer] generated this result transmitted ref erence range: 0.01 - 0 .08 K/L. The refe rence range was not u sed to interpret this result as normal/abnor mal. Immature 1 % 0-1 Granulocytes-Relative (test code = 2801) Lab Interpretation (test Abnormal code = 36911-6) [facility] W/PLT COUNT & AUTO [id number] 04:58:00 Test Item Value Reference Range Interpretation [...] 0-0 (BEAKER) (test code = 413) POCT-GLUCOSE [id number] 21:32:00 Test Item Value Reference Range Interpretation Comments POC-GLUCOSE METER 128 mg/dL 70-110 H : TESTED A T [facility] 6720 ([facility]) (test code = [place], 1538) [address]: [employer]/Techni min ID = [id number] for Lien Mans[place] Vancomycin level, [id number] 18:09:00 Test Item Value Reference Range Interpretation Comments Vancomycin Tr (test code 6.3 ug/mL 10-20 L = 4092-3) ELIANA (test code = ELIANA) [employer] ID - DBIf vancomycin trough level > 20 mcg/mL, hold next vancomycin dose, and contact MD and pharmacist. Lab Interpretation (test Abnormal code = 26534-7) [facility] [id number] 18:09:00 Test Item Value Reference Range Interpretation Comments Vancomycin Tr (test code 6.3 ug/mL 10-20 L = 4092-3) ELIANA (test code = ELIANA) [employer] ID - DBIf vancomycin trough level > 20 mcg/mL, hold next vancomycin dose, and contact MD and pharmacist. Lab Interpretation (test Abnormal code = 94130-1) [facility], [id number] 18:09:00 Test Item Value Reference Range Interpretation Comments Vancomycin Tr (test code 6.3 ug/mL 10-20 L = 4092-3) ELIANA (test code = ELIANA) [employer] ID - DBIf vancomycin trough level > 20 mcg/mL, hold next vancomycin dose, and contact MD and pharmacist. Lab Interpretation (test Abnormal code = 40957-9) [facility], [id number] 18:09:00 Test Item Value Reference Range Interpretation Comments VANCOMYCIN TROUGH (BEAKER) (test 6.3 ug/mL 10.0-20.0 L code = 522) [employer] ID - DBIf vancomycin trough level > 20 mcg/mL, hold next vancomycin dose, and contact [facility] pharmacist.CBC W/PLT COUNT & AUTO DIFFERENTIAL 2020-10-02 [...] PERCENT (BEAKER) (test code = 2801) POCT-GLUCOSE [id number] 17:36:00 Test Item Value Reference Range Interpretation Comments POC-GLUCOSE METER 124 mg/dL 70-110 H : TESTED A T [facility] 6720 (BEAKER) (test code = [place], 1538) [address]: [employer]/Techni min ID = [id number] for Jaswinder Jefferson Tissue [id number] 14:24:00 Test Item Value Reference Range Interpretation Comments Case Report (test code Surgical Pathology = 104) Report Case: [id number] Authorizing Provider: Sarkis Laboy, Collected: 10/01/2020 09:43 AM Ordering Location: [place] [address] ccu Received: 10/01/2020 01:48 PM Pathologist: aP Peters MD Specimens: A) - Biopsy, Gastric, random biopsy B) - Gastric, gastric erythema biopsy DIAGNOSIS (test code = [id number] 3220) FuZzEwMzNcZnRuYmpcdWMx IHtccnRmMVxlcGljOTIwMl trcuDxKLAjzQIlO3Lpkdcg JSdzWT3sWO4ukXughJOjvO SpSLFnDxUpw4bfc926yOWw d8nrPJFCeowxtZr0iZddC6 5xg8R8VlcjD66eyQQcWQiw bGFpblxmczIwIEEuIFNUT0 9ZW4oxXUQDFaTIRWWIXkBD F2WIWQnOJE2ES62HUBihTk nHABOVFIH3NHBzgyb8HAWg THNANoKUFFqxZMWPS7FBDT dJVEggTUlMRCBDSFJPTklD QWsNIYCCXFWKSUtYF2MPVP NTFeBGKvRhVa1OYEseDR7R USTTSI1ZIDSWQUMRNIbBR7 vDMOHpmql2FQFrSRRPJXkR YNtQLC5TS33TFSLGQJXPDJ 9MASMgT9gGR36XUtYATwLT VElWRSBHQVNUUklUSVMgV0 wHSWUUJ1KHUMYWP0UPLmgC QYxdSFQruCEsKM2wX7NKOX nTRhZSSENRIcizI7PZQO3n EeYCXQGTUpXpFi0GDMalTT FQWX7IPBDXIXjKAY0VQ6LA HRSXX5poUJYqnKAnTB5tOt VERLGJDuStZj0AJDGCD8VV KYNTGAUHSnVYFCVDKI6SFA SkaDAgHAMglrTMPgJIOD8Q QUNILCBFUllUSEVNQSwgRU 9ZO9OBG0HAYiCVEDKZV7YH HVOYX0VUVZQVSfqfTPButR GkWF7sG1eJLtBHRuFATCDS J4WmW0bUYKIDKLaCBYHJNh 4SMKDqCN1QU6PVFoUqC0WP VFJJVElTIEFORCBWRVJZIE AQJ8RCYSBYFEmBFIXWUCOx ciAgICAgICAgICAgICAgLS OJQR3INwGxPQEYBUKPOYJD X44XYAZVTA5ITPIRWHBINC JUTFkgREVOVURFRCBXUElU OSBTNDSDEBHioov8EXEtII BXQVJUSElOIFNUQVJSWSBT VEFJTiBORUdBVElWRSBGT1 VlHY2cXKzBF9EHFJpNW1Xb S0QQWU4BJ26KPDHvbpk3JJ VuBYPFCHxNVCrXXCRJF3Ue SN5AFURCSG1CJEOUIJBDWF aLN3pCHWIUIVQQUJHTGOGj Q9HdG6IAY8fAK49PFYEjui 38XMT0EjYqv3O9YXD6TNHv JQAgz2deYQHlgOFrJdLvBz NcZnRuYmpcdWMxXGRlZmYw p8ymo985yENjm0egKTZeIt Y0nKOxFDEupHGmE982ZYEt MVixs3lzz4WtUTDpnGUpc9 N3YDZFwkckdQa5uKwrS77t p9T2MvgnN8ncLGFbHZVbX7 VbBV3gFSZhIru5LAO9PVE0 SLHqONAkD1RaTP1zWXChpA GkWZh6e4beqIhoFFQbQZN1 v6xgTYodrrNtJH4zie5wuP p7c8duayRlZKUxCZGqhNSX EZMzH6EmhKrsXi6nhSk9uQ yoBzoaHDE6Jop8XA2jra65 yqu1cHrfGFKvucxpQbX5QW xfWSUarnmpEPn8MWzvZPUj kMQ7UFDinXGpG7IqDEAhYI 5ekxg7LNW2HPxdMPUkNcN1 NDBcaGVhZGVyeTcyMFxmb2 50RCF8OmMbTZ7mZ9Txe0T2 fH2hoDYiQXXxaLJgVzSvLM Eagh6qkHCjLXpxo6FgJGA9 mjC6uGJblBInSOFaMxX3KV eySK0orq70CQJzNMD8yk0d bGNccGdicmRyaGVhZFxwZ2 VyDFMfw196ZYPeC4RbOUQg f6Q3kcBfWnZhJTKbaKB0uo U8WFMjCE2hfzmrd1sjDZjt TOmlPJAjduF5iwB3BPLesP ZqZ1RgaP1yUBJyKQ6wzabt n2efXGN9XQyoJCUpQEE3Oq WkBLEsj3Wejdp7JxTql0Oc cTKnHBcgI12yg233TAPsko OhM8ubwHMogjmewQCqbwpm ENxnvsB3RMCrDCspsvyxNR GyQZxlR5zaViZzPPKulGmi ZVaxe8WgCNJzVVQiSkHopO RzSFVuFza4GGWdyYBeDDIw XbCuI3dbkrdmFtXUQQBrx6 pqN2vsoTRPsVQiR2JnDHob dvWlPVzdQBduPMUgDPT0OM 49URiaZONxtq00 CPT Code(s) (test code d5wwzKMtXYGqyRO0MkAcYU = 3357) Ylm0jsp9KsvYWvjQMoADjj yKYijqNjqz68gEC4wY13UJ 7mJKCxMlZ4LYQynwS2Bml9 OTSgYLSycBXzC299r4umj5 jgcwEcwQF8dCasGWUaLDEs YWluXGZzMjAgODgzMDUgWC DuRQL8KKVlOoJNBraeFKE1 CLINICAL HISTORY (test v0ctpVLhOZApzMM3RvDiHW code = 3356) Kim3hcs0NieIXcbYVrRAlz lWTkpoVsiy44xMO9sX03MH 8gCXWfAaY3GLFfkzM8Nzt5 CQZuNMRhpRBmT536h5acx3 twkkCosTZ9iVnuPPVxEIKn UGzxOVTpLzLjeKOoQI2fOQ Bhcn0= SPECIMEN SOURCE (test l8pgfNYmNGBusIB6OwFaXQ code = 3377) Sya7yfd1AohNVfiUNqFZar vWRqibZpyi03uQS9hN75CQ 7aJCClGbV5OEZguzK7Ybc7 BZPeGTAekJQwC530v6spn5 vdryTfoHF7nIzsFDFpNVHi WZlrPWLhJiDjIX8wXNawb4 MmvNTsrGhkWGVBJiPlV8Hq rOVyA2dmWWO1 GROSS DESCRIPTION (test a1couXPvZIIvlHUsQfBdPW code = 3366) YkNEDuw3uiJBNgpQTmMkMv MzNcZnRuYmpcdWMxXGRlZm Obu4isa600dBSbn8amSRSu PvI9hEBvZZGykATbZ876y4 ekg0xmjhDgqTY6RGQxXED0 BDugeeAskaG0NPnluZHfPy G5XFzzukOnNFjchiZftfDr Pse4ZFMbP914HOJ6fDmcm7 gzCVF4AKXeGJHhGsPbSx4i zAXkX362DILwNTKXSHIyxT m2RXSkvyOufhJeoEEUd030 L353e8qlALGduqQqyJaHov dac0piE456QNFetTDqdbVu MyWbOXVeiLLjvGB3BNLzRO 3uhfuiCaQkXV3cpzblXcXd PH7jbcp3QzHbDX8zanrcAm OzUUydBESwmjgpHFHot3Wj bhwoRB7fQ6Geb7E9kZ3tyP LsCIJlnCKkEuGnTWZdag2j uUSqYPztx3KzIZX3uzY5kJ NsiKVcEZBhXW62Vvyzr9Nf GsdvJSF9KRCncvCmb7Laa5 qbOjLaumHdM2qlM7GoPQJr QVVbWYQyUwRzmiMdf4Syj7 XgpQRphOt5t4jqOAJrQTDc xRttt8nfSFR7MMAtX3N2hB Izc7mjMOqoRGVynVH3josw BFadGUMjkpO5nmhrVEfcCI RppML1kmcwGOtgZAHvIaR6 iueeRZysRBZiBWW0NTjyp1 63GQQ0IRfdJugsOBezYOYu bmNvbnRccGduZGVjXHBsYW luXHBsYWluXGYwXGZzMjRc xXpzlYycmB3wTaYcZzEvSZ bfZO7tZMSkS0vqjQUgUYSq ZWSxB9puBfSnmO3khGfuJL xmczIwIEEuICBSZWNlaXZl EFJdkfSqb0YvCThvmwPsCH BlfQYnXDBbUZXhHQQbKM54 A8EgrnYjCSibALCfHQSxuV 8kEU90vMIdphLdmiUvUoxc i8WzhVSqOnwylZU2YcSrpp DmYVP6GN7uuYjsmtQ5jPDl vJGrXvWtC87ljgVuWP8hZQ S9tmxkIvI4eUF6hgQlLdBu U69twE9cW5UgLZNzw9RnOF brBG3wcX7xWCisaAIeLUAt ZLLvuOh7ZAUiGXNndvLmy0 AqdWf5qITyWLgwFEJmfP5i tQ3mJUDyYLImdmufQUFaEu 3zGJWoI9ObbdOoPApxCKFl kc8swAixQNivPrMjVRLaoP ehERRciMiepgQcnkGoNC5v BLNvP1Jmb2Azp99useUiOy BwQVWpUQZeP5ZeyBGmYaPq aXMgYSAwLjIgeCAwLjIgeC HwClUsL09ycZMfRHGvppze lAien1OuBDUiMDhvXY47VT doaWNoIGlzIGZpbHRlcmVk TZLhRIEdhPUjwPD7KGMtdR 1lkQ84luZhmqWJTN9ogCHq GOJfzzOThOxpcqEEptf0CY xsZXMsIFBBLCBIVCAoQVND UClccGFyfQ== MICROSCOPIC DESCRIPTION n8gqkHBoSNQqcYT0EiYiAN (test code = 3371) Xpr2inf2MqsTLtsCKzGTud kIRycoPfer05iKO9gN77FL 7vDWEgRnJ9GVDfueA5Lhf8 ROOsNQOqbPAcQ016f9mot3 axeqQlqVF1zTfbKYRjZOLz AHusQAWaVlSwEJTjTb3kjC VkLlxwYXJ9 SPECIAL STUDIES (test h7hqgDNwNSKun8hoRHQsuP code = 3376) FuZzEwMzNcZnRuYmpcdWMx TKzlurEzHCbly2KxB7AyEw AwMFxhbnNpXGRlZmxhbmcx WBQgDXD8qxKqSIRxFIuhYY JbYUkzNk6cfTWufVjiBiIq ZRBnr5mfbtJPfioopZu2o2 coVMBqBxX3gLWlSQnuR8is elPndOErZ5XhlOTboOc8p6 muImQkYgZ0eDLdBXdjJ4st ybFhoUHoYKTsSGb9lQ91LN WoyV5enOBgBWmaacBvPyR7 IMepBLKbQvD1XSFfjFZdDO NoZ1juKGRbZBxaIHKaIOeu rDAgUDY8pUkbr0A0cDTsjE JqfFyjQuJpVkSwTfYKb5Su HJt4yBgkX9HaHUEaBwV8aA QgUGFyYWdyYXBoIEZvbnQ7 xRmwhmExd58yxRWnXFQkXE XsDzYqlXtpPMEkJQTQf8La iSxiOHK8rPf3zTklEuqxZD A4Pwu9GU7voy43bwp8kDmg GCVktghsHeV5FXtjSCFcgn uyXZp0GDmkPHMoyYL6SOIk kBDoF3ZkSWMdKB9eexq1ZM Q8LLpuENNqOuQ4LPZqrMNo OYWxnFioUEyif599AQR9Xp XpCV6rI0Bdt6S2kZ8pqBZu RVIrbRTyUcGlVXPajt2hlB TrWSrzx4AuFHZ0apA7qRGf ySFrVRKcNO12Dawsz9BzJy vkn0NdF99irYO6GOsdo6pl DH6lSiH2huFbURlfw9rxwX 9zDcY0FUjiQM1mQA5fBTIe lE3pkuvlOZMyBiTztfhjCF VcyVktnuYyCz2xcHzbPRA8 BYnxQ1usoZ6mNmZ0PVtyJ8 wjvS3uIZu7UPbnrDI6OVEm zE5cFR9zzhgvf8kiXQxuXG kuRTQjlfH3piA2OLWzzVHb M1EqhF3uLGVkFC6jhdwjk7 fyDIR3KDjjYCYeUDQ1WkRx BSFxa6Cjlhl0UoXpd5HyrA CdBRtmL45zv110TYVzjpGj E2pojJOqyipwpIWcljkoPY pqkbT6ARUpSLGiECuwWFJm XGZzMjJcbGFuZzEwMzNcaG ljaFxmMVxkYmNoXGYxXGxv J0ghFtDdD9GfGYJhJrDlED uvFZcaiOOaqJMqrTK8aW4d SA2zUXNyzBMnO2AsKKLfpj PtlVZrRFY7pUAfgQPzDM4z AMlrrWHpb7sbu6PiL8rvqY angDG1SJ9rQIYjLGZdMAoc b0JklO3zJtfeqZQwbeqtXA xmczIyXGxhbmcxMDMzXGhp N6gzOeTeZIVjuNvvGQlum6 NoXGYxXGNmMlxmczIyXGx0 cmNoXHBhclxwYXJccGxhaW 1yAjIjUlShWergGC3rUWIm E0ccwQLlRCOzUDVqI5fmWk KjrP1onShbOSafKtDnSiUl HsRCz277sb9jRWHqpKYbbj OTlLCpaQ2xFLvlSCsyQShc lHNcWTsvb0wuHADih6v1jR YtEARcodUaf4bhTKaxqyWi REDthMCubXZkXMPbe37sTK eesHsgbZjyBQMjk9DdiRyo u8PcFgSnOLxrp1EvI69acD JvbCBzbGlkZXMgcnVuIGFs s25se5cxHILeQpG1cJUyyL I9dWFqdMTbu2KlbXpbKMUy m0mhFKHfwn2mxxariOXvs3 CwmN0ootffUYtldTJbhqSi SEZwe4v1fSWtZAFaYIZiZJ idhUy2HKCdp855yh4cwsO9 eURvTGV1LDjnTNNaYHYhgg UgZXZhbHVhdGVkXHBsYWlu XGYxXGZzMjJcbGFuZzEwMz NcaGljaFxmMVxkYmNoXGYx DLwiZ0poLjNsK8QgFSIfQd DbnKFoD6blcQJcPOTdATpa XGYxXGZzMjJcbGFuZzEwMz NcaGljaFxmMVxkYmNoXGYx PFsmS1izXfKeK6QoZLSyJc IgIFxwbGFpblxmMVxmczIy CZwnmfxeLZWgSMlwU8ylOn TlGHKprMdhDKeti9ZiWQLl FZJwIapkawWvVJu6wzOvBJ BhclxwbGFpblxmMVxmczIy EQqpjutaFFOaCMigU9acHy EwOEXpvJiwRStcc7QnFIKy XGNmMlxmczIyIEltbXVub2 mgu1LpV2kjlOxxjFC6QPNv T6mmcWWhaEB9CVM4rI8lZG mkkuEpCGNgl8ZhTARfVRJp BiN4gI1sCBL6NaBKiMjvQF BsYWluXGYxXGZzMjJcbGFu ZzEwMzNcaGljaFxmMVxkYm ZfFQAcVKytT3lbBrXrM7Vx FBAqEwOloTnzVFwbHMg8Xd xwbGFpblxmMVxmczIyXGxh ewohYHRjSGohE6ulUyGcSY VfcKwkSEsiu1IhMQZeGDHt MlxmczIyIHMgTWVkaWNhbC TXPC10SVCbAHRnbKhhzI5j eHHPQLJpkjF2i2O1QTdzJL GnOVn6AGjzqsHeWDRqfS7c AORuTA9bEHr8jkJaHMCns0 OkHL3jSQRojARyOEH0HNFv w0YdH7Hoq4FkNKOjIQWsjb 2hgqFjHyESiOCsBQDnmc83 ZCOyWO5rI6xeEGBlWLAayl SmfCZma5NmBWLmuPG0oDBb DF3REtDGq19pIGPoBIVVvs KaUTQcqArkyRI4usD3dW0e LiBUaGUgRkRBIGhhcyBkZX Yxha5pciCeXCCkXUNfb6Hc jTCyfRCkbjZaR6Rsx6ElJR Bouc99LKusgKDppf05QS3e S4Vyt6PdxG2qOPprNRUla7 JaqDEubHUgWUNwj1JoS7lt ynquTYeaxJNheK7kVUWrXB w6ESToj3KiTRCos9TlDrOi vkNgFDQbAOKaWXWhsZ60AE X6mCeeiIcuboPhHT0oTZLw zrHmETDrQXGogY7tQOskds YmUOOyfzZ8h4B9BTinRREx inIuWcdtKTJ0zxOfkmI4xX NbC5sbdaflJPoaSTHdl0Fg hF0mwGTFiCCns8IdoIDbjA ISxBFkAJ3jlzGiJV7gJAV3 ODggKENMSUEtODgpIGFzIH L3XZdjXzgpRUY7jpGaKHYb r4GqVRsdF8xbT04awEqftQ m6fMLvaRbftFSsfJVqQOSk bmF3g9X7WUQwe6ZorjjuPW BsYWluXGYyXGZzMjJcbGFu ZzEwMzNcaGljaFxmMlxkYm WgFBUkSYkjS2esIeToYbGf VundZOK1mU== Gross assessment was [facility] performed at ([facility], = 2777) Department of Pathology, [address] [place] [address], Technical component was [facility] performed at ([facility], = 2778) Department of Pathology, [address] [place] [address], Professional component [facility] was performed at ([facility], code = 2779) Department of Pathology, [address] [place] [address], [facility] [id number] 14:24:00 Test Item Value Reference Range Interpretation Comments Case Report (test code Surgical Pathology = 104) Report Case: [id number] Authorizing Provider: Sarkis Laboy, Collected: 10/01/2020 09:43 AM Ordering Location: [place] [address] ccu Received: 10/01/2020 01:48 PM Pathologist: Pa Peters MD Specimens: A) - Biopsy, Gastric, random biopsy B) - Gastric, gastric erythema biopsy DIAGNOSIS (test code = [id number] 3220) FuZzEwMzNcZnRuYmpcdWMx IHtccnRmMVxlcGljOTIwMl kudzXkSPRdxUTwX9Rjtnwg LMeqBE2wHE5stCuxoZProU HpPPTaXkEeh1vla564eTYm d0wwMADDfknddIz5tGawC4 4cd0T9PjspJ18ejEZlVBcv bGFpblxmczIwIEEuIFNUT0 4LC0ubVISTUsJOKKDTJtAA M2KCVLlHHM0EM13MDXpoTh zRQNLFTDJ7LCCqgxb4CSEi LDHRWsGRYEzeOGMFG4ZYNJ dJVEggTUlMRCBDSFJPTklD AFlOSFNJYVQXNBvWI5TXZS BBLtYZPfRnBx6ULScjIM9X STUQTP9VIIEGPOLKGSoXU0 iBAMGgjdx9KYRsNMUYPCoJ ALtJYQ0LX42VMDSUJBOFIQ 6LYMGsB1mQP49MCvZGZiHZ VElWRSBHQVNUUklUSVMgV0 yIUWVFA4ERKRFEK7UOPsqN SCiuTEUreBJnEE9zA5LLRN fEMcLYZILHCcwaP8ERZP7o MfJSLCHWWjVfGu9MYRgkXB ITFX6WXSRERLtDJJ2PA3HJ NXNLY5bdTSRbxLGoRG7xPv HBMCMIAnElHm7WALYWB5OU EGQCQZZYZfMRJASTQW2VVJ EhfUXyLCFtnjDRImQDLT5W QUNILCBFUllUSEVNQSwgRU 1KC9KJX2SEDxUSRCAAO3DQ WYEBU8MCRFMKYiblLWQxoD MtYB0oU6vHLcTLScFTZIGD W9HuU3lQHVLEDXwQOHTJTt 8YWCVnTD1CH2LPXxQsB7BF VFJJVElTIEFORCBWRVJZIE PEQ7MYEFTPXChZMCVTGTUz ciAgICAgICAgICAgICAgLS AFZM6AGtOiYCBGLJXIPYHL J71OZCMODK4NSQBXHHHZQA JUTFkgREVOVURFRCBXUElU LESVRIWIUJPvkjq2VETfFP BXQVJUSElOIFNUQVJSWSBT VEFJTiBORUdBVElWRSBGT1 LvDF4gFMuIX3BJETePK4Go E3PWTD3GW02ESJVgirq9OV OlQFXAZPmCMDaDLUINE0Oh MQ3GJYXKNQ6WOEQEVUUJQT vJX0tWNLOQYQLKTDOKYFLx N4YyB3TVP2fHY30VOVWghk 02GGR4TqFpg5G2DGV7MCVp MWHrn7ofGLYafGCvKrQnAw NcZnRuYmpcdWMxXGRlZmYw k6tni855bLCuk8tmFDFhYy T7jBIbOEKpmXRrD917GLNz PLdbg1guw5BsPCHveEEty4 J3JZNZxmtomBu6vLqxW86o h3A8OysyL3nlUEAqZHArG6 SiNW1jCQWcNiq9BKN2JNS4 WYWuBCVvC5WaRC5iKSUceG PbPHo1s3janVwfGPUcYUO2 g1rwVLcjctHhPW1vsw7koR q9s0aqtkReFMMsYNJxfNGX FJHrL1MftPanDz4jxNo6dQ thVwhsRRG0Dxn5WY5azr08 pyi8xTelGIWkxtqnOxY9OH qnRORsnqucRNv8EFlqAAAj tCC5KSYcmBOzS3XjEQDbGZ 1fvus9FFF9LNgoFDNwEtD5 NDBcaGVhZGVyeTcyMFxmb2 76ZZK7DbOeRP7aQ2Jfp1Q9 aM7xgDAsUXVhbKUxNzVdJJ Fiby7myDMfBTfdz4BcDSG8 xhY3dSVguROtXXBhTvF0RO erJA8ytn70PZIeREH1gv6v bGNccGdicmRyaGVhZFxwZ2 NtMCCoy117COHsR4NsNOXg l6H3oaVuSvBgRYGmcWZ8db I7DFRyAS5aquboe9lzIVqa KRirLTIyemV5lbT5VQAsnJ EoE4KwdN3xYMBhQL2skcde w1fuYAG3TYadEABoTWT1Tb FvHTGbr7Pqrkp5WaChs8Tp aCAtDRhsR36fe238WVBnqd ZsY8ohyKShkirohSZzyskl QVtbryC9RWAcRKfkxvsqZC XgSDteP8vuCfBjLSKehWfp QQlio3HbKRCkZWFnNzFnjX FmPHDkQuf1RGIbfJJsSTPf XhBkQ3injoyxHiXCXVAvc6 jmK2ciqKYTgLUmY5AiVRam zePtNVjxNEwpMPZpRJG9WK 98NCtkRBCkpq77 CPT Code(s) (test code c4uapATlAILymIX4TxTiXL = 3357) Dna9khs6XqfWGukYYlNYyv nEEhelEcyd27vXT5mH22HL 5fVOAeIaN7WQKrqrH2Jsv7 CNTqZQTsjFEwB493l6zhs5 scnuZnuOD9rRoqYMZtCRNg YWluXGZzMjAgODgzMDUgWC CkJRI3JXDxOeECBtiuTBJ8 CLINICAL HISTORY (test b7adtTSaIOPseCU8DcUoEY code = 3356) Yma2utt6HhdKHkjPSmZPpt iQOvsvVzob70eRM5uC72PH 8lALMoAoG2PPJlaxV2Vqa1 SUVlTDVipELkI570y3ban6 wrqoJyfJF0rRkhOOGsYFEt OOvvRYLvKtTxuFWmXJ2aLO Bhcn0= SPECIMEN SOURCE (test g5wnzGNmVEUuaMS4ZtBhUH code = 3377) Cwj0qmq9VopPPlvLRsWQqs xIRzcaWzaj82pPT4cB38MR 5nVMMzEnY1MRNbjqQ5Cud3 JWWhWRIhsNZxK931h3xca5 hwbeSlfXN8gUklGNGuRNFb SUfuSMEaOvEwXY2tEIivg3 HreOEfkEriEBJZUmWgE9Ua qSQfT5zyYZP2 GROSS DESCRIPTION (test l1npvRGhAOAmnTCfIfFmMV code = 3366) PoMKSpl7pwVCTdiSLwPoWz MzNcZnRuYmpcdWMxXGRlZm Swh6agt364lZGdu4zaRQQa WkJ4sCXfHMXcgAIpK128w5 qdt3dvgtMyaTY4PNIhHND1 OZzxavLjxmL5LYbjhNIjIr B8POhsllHeDHutsnWdwnJg Etf6SOEdS687TUG0gXqkk0 drZOP6HLGbFFAhCqXhIy5b uRHwP578ETDlPXZCJIFzdQ u0TZDbcvHnfgVcpKIVs132 Y038k2mnVXVuldCbtRlMlh wls2qxO644ILJezXNpeePn WtAyLDKppQCsdPX4FKJgIU 5iryqcZxVhZR8flclbZeZp SF6sfen4NcNzSG5lsdyiHc UbNWhfAVLsdftxBJZuv4Tg drnmMR8uK5Nwh6L7kN1adG AiQHHljOBgFyKlMNWxzx2z yDVqIKqxo7OoBCL1abI5xX JrfFIrLBNeWM59Erujd5Dm CidcLQA1UHJofcXuv8Pjj0 sjRmKajaEuQ8luB2YwGQVw CRDfJYCxHxHhhsYij8Xzu7 SqiIQsjLr3o5jhVFGpGIQr lPdzx1jcYWA1TLOnY5P2sH Mkg0wvGTidJDQtiKB8xxsv XNqdPCGmavX6mpoaGVloJS VybNS5phwxOLejKLRwIsH7 ulrjOMjhCKAcOTL0CDyyz0 20BDF7DMszLjirCYfrEGOd bmNvbnRccGduZGVjXHBsYW luXHBsYWluXGYwXGZzMjRc xAnnaHyywK3oGcBoSvTwZD wvEN9lJVRzD6nylSSoKQVh PXIkC0rvQjVrlC7vkLdxUF xmczIwIEEuICBSZWNlaXZl IBRzmnJmu3JaQWbcafQyTR SpjJEvXFIyAVMnCPEfTI48 N5RddkUyCXycTZPiZQXbhX 4mND93hLOuviUjieQsUayk w1SxcDErKafayDA1VxGozm CgZXR7BS3uqIbcxkR0eHIz aHNwIuDtN52wqrBrBS4dEP A8rnijChK6aDB7thGjDvBc L93ryR9jU7QgOZOvm4XrJX npLY9grB8gYLkiwEJpZPIk AQAgvWh2SSBgMETkprZfc3 FcoDb2bAAyFGjlQLCbzA9r gG0sKJZrGXKlxeqqMTKqFj 0zMPLuL0JahyYjGHooWXJh ib4cyUugUOdsBvUrOIEnvS rmOUEdyElqxqZvjhZyBF6m BAKaW3Hey1Ffo46qptMmUn XmGCJwNDEdI9PdwELdRdQr aXMgYSAwLjIgeCAwLjIgeC EqXhOrU56mxAIfFSOxwrhg mIvvi9OsHBLkRTekBQ02ZI doaWNoIGlzIGZpbHRlcmVk ABFyBXAhpJYzpKH2RVQseA 8dhK84aiZnguICCF3siLHd IPTvdmPYlDcmzfTIpca7NG xsZXMsIFBBLCBIVCAoQVND UClccGFyfQ== MICROSCOPIC DESCRIPTION d4eryKLxXNGwxPF2CvArNL (test code = 3371) Tno0tkw2IpgZLfyLGdAXcz fEWnpfFwvf63nRV1iU80WD 1dRMPfOcC2TSWeayM6Bmw9 CJUjJWBiiXFhG971t5hhd5 malfLfmMZ6uWowTLEfBOPu UIneJGBuEzBjMLEkCk2vsD VkLlxwYXJ9 SPECIAL STUDIES (test s7gkfANwMCVsu7ljBPDqqV code = 3376) FuZzEwMzNcZnRuYmpcdWMx NIfhalVaGXngj6DuW2UqVo AwMFxhbnNpXGRlZmxhbmcx GDKyTMI2xmAyYGZsPMlbWB VzRZwhEz3pwCBbgKghFxVl STXgw5ztldISblmujQt8x4 dzGZMuQdJ4eAAaWBscE3tc suDdwNDyB6DhgNQqpWa9u6 fyNkDzTbH3rFIeVSutP7yv dfIhmRYtKAYlRKq8rB03WY GwvL1zlMRqMVgmyyHkDnH8 CMtbCYQyXoV7AYRdqYMaNO IpS5okKJXuQZdgDNQcLNit hFOdBNQ9oXiwr0Y7dGJywQ AymNuiIrYuQtKwHlRWg8Gt ZKl4fCwvG3LmDRYgFhC4sH QgUGFyYWdyYXBoIEZvbnQ7 kEwezuQbx32zcNDkDBRuUJ ClTiKhtXnyQODwJETGe2Zn wCowISU1yBz1hLsqDoltHP S3Gwr0IE0uzb11sac2gKmr HWDzrksuNbN1WNsqMZWztq aiBXb2GKkwMRCjaKJ7XWIn vDUhK9UvJARbVL0etgf9UV B2DWgpKGPvNeC5NIDnzWBu RQPrqPlkBAbmj087RRF3Ao RdZR6rC7Dls3K1wV1raTNa YCRvoUJnRtDiKKRwmi1vtO VoXQpmv6ZrLTR6znC9sVBh bKDlFBSvDU14Pbhxu1BcEm rhl0RgG66zwLJ6HOfyj3yk QM3eRcF9moQjVVgbm5oyrG 6xCsX6OVlfBT2bWN7xEKFz uY0spyakXQZcUrVlgvdlLH AjbQmalzHkVs4vsEikZEN3 RQljX1gyzB2tHjA7TKxnY3 zqbZ0hUPn7SPzpyPF8JHOt xD9uEG7jvqfop5tkJWimIX wzNMCpukI8ogI0ZXUysXWk I5VnjU1hCZYwXL7gkzzys4 qcHRV5AOodJJKeXZQ3JtRx OTAye2Ftoyw3VlLak2LxtB RgLJspM33rf170GHFqldJq Y0tmnTQglfdnySGazxcaAU rphvS0HJLvLTJjRWohHICk XGZzMjJcbGFuZzEwMzNcaG ljaFxmMVxkYmNoXGYxXGxv I5jmNeWlA0GrRAJxOhMeOU nyAMyhfZXxwRLjnOP4cR6i OT6jIQJadNLiP0IjOBXusc JmzAUwZDW4cQMckMItFY8v UKrgoWKva4jcc5WxP0npaG vcyCB5ZG9xXVPnOFUpVLsv o6KmvV7jIzinpBDbqmrzFB xmczIyXGxhbmcxMDMzXGhp J1qvAfIdLOAfyPhhTWaxk1 NoXGYxXGNmMlxmczIyXGx0 cmNoXHBhclxwYXJccGxhaW 7vMzEhEpGwKlymIQ0tXMAd W6nsvRRbOHOrRMBcU7mtIk HdoU0fyQgqWNxeDxJyXuAw YtILm863is5eZMVvwJQkbt YAyAYqmD3pHUvrSDvjQWek vZQnOGcfx6joNANgc5z1yP HvUDRckxTdh6esGLwrjdOz NWVezWXjcHMhNFTbp68sCA aklDjamXgvGTXxx6NomSye u6TkUkCdBOgha1YxT25epE JvbCBzbGlkZXMgcnVuIGFs f74xi6owJULeGcV8aYLubP P5pLHpnPMhe5FdbXvlVGPl a4tuWPOktg2yciablFScz1 KmhR2mugbsPNxpfJEjibGe AGOkf8p8uFAtXLWbOERhMR ehiGi8GFUjp008lk2bhiJ7 tBRbVYF1WXaqKTTlFJUjki UgZXZhbHVhdGVkXHBsYWlu XGYxXGZzMjJcbGFuZzEwMz NcaGljaFxmMVxkYmNoXGYx LNchD8fhUeFvD6UmWDYnGl CdvMWfB1rbnHMzSGQbKJer XGYxXGZzMjJcbGFuZzEwMz NcaGljaFxmMVxkYmNoXGYx VGjoI5nwQyTrO1AhGVMjXa IgIFxwbGFpblxmMVxmczIy RCsmomanZNMcYQzcT0ckCs FbVGIslTtdEQlkw9VpUADr IPRtIffkgoLbWNt5zeXiOX BhclxwbGFpblxmMVxmczIy PDlzcdsfXGLuFJrjP5cdUi BfFHSvlIhiJPchz9OrWVDn XGNmMlxmczIyIEltbXVub2 zdl5YeP9bxrRawuTX3SAIx C1bljXGoyWR0GLF3aC6uIL igecOdQSGtn8NcDBKkVCSz XfN2qJ0dIIO4BbXAuItlXT BsYWluXGYxXGZzMjJcbGFu ZzEwMzNcaGljaFxmMVxkYm IrAYLmRDdfI1okKaMjH1Vf IFLlAdPyeUekVCbgQZq5Nl xwbGFpblxmMVxmczIyXGxh ahdxUMOqVQxbF3qeJkMgZS WvvNwnNIftw4DqCESaKQFk MlxmczIyIHMgTWVkaWNhbC ARBI29WBCdSSVtzFaslI7q uPYPVIPxoiD9s1H4REjxWG KjGMz9FApbbpYmLXHwhU2e TGVyBM8fUNl5ibKbEUErg2 UwOA5vZYTofMKuQPO1BKSd w0UlW4Fqd4RrMKQsJKDryp 1zruFaDmIGdBEcDLDrbr01 CPKxLT9eT1hzBUDiUMGxqd CnjBXhl7BeOQVonLV9aDHp AW9DThPSj40zDDAhKAXZoi TxPIHxrQowaOT0ilO5uI3f LiBUaGUgRkRBIGhhcyBkZX Xtqj6zmhQcGFBgHJKwc3Mh jOTamWUvsrWmG1Yjr0QwOV Dwew62EPaxlECacx83ST9d Y0Ffb2JelX0pQSkhTMCqm1 RikNHqlYPvDINsn6LfE4mt glceDVidyDLgkA2mDTWaBW g1XFQae5ErIUCel5UhDuVx wiIzLTXqOFLaEYMrrH87QD B0mAjudFmixdLuUX2pOQFt dxYsKJIdFWKcjF3mGTimkd WaDFVwdvX4q7W5DJsjUFVq dqVkNmlnQCR9sfFaqwT1dX EtK1ivosdpQEutOQLxj6He cJ9obQUAlYYgp0QnxEMucR BVdVWtFC8ejhZgIT8kAAV8 ODggKENMSUEtODgpIGFzIH S2IMvrSyzgULZ5ynQiEWBr d3IxETzvG8yzF15uxKxxgT d6bNFvmXtxxSNehBSbSXZz mcH4a3G5LOCso6BotyqeTL BsYWluXGYyXGZzMjJcbGFu ZzEwMzNcaGljaFxmMlxkYm SpVZZlXUphI7gjYcDiNkFp ZibpZWD9sX== Gross assessment was [facility] performed at ([facility], = 2777) Department of Pathology, [address] [place] [id number], Technical component was [facility] performed at ([facility], = 2778) Department of Pathology, [address] [place] [address], Professional component [facility] was performed at ([facility], code = 2779) Department of Pathology, [address] [place] [id number], [id number] 14:24:00 Test Item Value Reference Range Interpretation Comments Case Report (test code Surgical Pathology = 104) Report Case: [id number] Authorizing Provider: Sarkis Laboy, Collected: 10/01/2020 09:43 AM Ordering Location: [place] [address] ccu Received: 10/01/2020 01:48 PM Pathologist: Pa Peters MD Specimens: A) - Biopsy, Gastric, random biopsy B) - Gastric, gastric erythema biopsy DIAGNOSIS (test code = [id number]) FuZzEwMzNcZnRuYmpcdWMx IHtccnRmMVxlcGljOTIwMl dorqUeHAEioBXiT4Fmswwn PUveOD8uNN7tzBsrtGKtxX JvTIBxFoHss6gqx983tSPw c5dhQHAEuppgkLn8nBthL8 3oh5B5BhcoI36dfXEuZKse bGFpblxmczIwIEEuIFNUT0 9KZ3xaGRQFWpKTYUJFQcIE Q0GYOIwWQD6SA64UWBhtUo zLQYSVODD7RUBriew3RTMu THDMVjKCNCqjLIGML5FPPJ dJVEggTUlMRCBDSFJPTklD SFeTRTHQCUUKTJkYP0JELV NCQeZSHgLqQw2ZULhfVY2G VXVKIS2XWCURXODZFZpTL9 aWOHSevic3CNYlEBQHWGoR RAbZXJ7LV96SEFOHUCGCZJ 0MWYIlC2lRR34NMpTNDbZF VElWRSBHQVNUUklUSVMgV0 dMXPTOH5HXLHTKA2IFGetM GLzxPCOxkIHdHV6lA1XZKV mNNbMBTPBDOjwaX2VJFO9p SvDRVQCZHvFqHp8MEPvlBX ZWKG3EHAECQJlPID5HJ6IQ EGMPV0tdFOIrwPHfJW9kOb BQLMPEHuXxYq6WVQMSH0CZ JXPXWZUIXoCNECWGEH2ORA FajVSxLOJkhjWIBaBKLK3V QUNILCBFUllUSEVNQSwgRU 4CD4RPD5XVWtNISPYYM8YD ABMLR0QMEBMDQvrhMEEvuM OqPM8rY3iLTeUKPnMUQGVY F5LvS7iDOPVQHDjRVCBBIl 5ZAMNnQS0TH0XJTpXsK1CZ VFJJVElTIEFORCBWRVJZIE ZYZ5BIYNLVICqDIOCOODUg ciAgICAgICAgICAgICAgLS UUJW8QLfDkPZYCIQLHYZIL X58MBKJFCI4EWZPHQRKBTU JUTFkgREVOVURFRCBXUElU SIMSSCKQYCQneel7HSSsGJ BXQVJUSElOIFNUQVJSWSBT VEFJTiBORUdBVElWRSBGT1 MiIT0pUBzLQ7ZGOSmTX4Bj Z3JZHW2UL91KGXBfksh0FV CsFUMCJJcRULwBLUVQD1Xw MK4GJDZNBC4XJVNSZUURJM eQR6ySXPTXHPXLVNCNNYOf Q4XpH4GLB7yRG65QBGAtsl 52DDP6QlLww5T1WMF2XEWk ZSDvf0izJSDitRKhPaAvSq NcZnRuYmpcdWMxXGRlZmYw w9qvv278bFChm7ckRMQuTd F0vSSxDJDndSLgF447TQBf VLkze4stp7EsYLIbpLTfn4 D4EXMQyhgbqYn7wOvpF16p v9T9JgxvA5jgHFImYUFaM6 YuGO3yALHaTwo5HLS6NQM2 XTKnCSOvB4MtTA7dSZNidG QaPAs7q1fwsKyaREJvDKR8 p8aoPGmfirBeTI2gac7qlU c5n3eawpPtCUSnMZTluINQ SLAtV1GphBruDh7puJh9iN qcYogqXMB4Zii1VE0aid04 sdj8xWdyPTUmnukzGpP6YS qhTPXxyiuyYHd8TFgnNWLm qLG6KGIfdVChU6VrVWXwQT 5nbdg4NUD6KRssQREfDgM0 NDBcaGVhZGVyeTcyMFxmb2 11YYU9WdQzEM9yI7Ssw8Q1 pL1lpZZlNBHkjAXbRgBjXT Yclw8gfXOmMAxlj3QbTUR4 ihE2fYBagUAsMDFmBpJ7EN tlQX1noy41STQnWMA9mg0e bGNccGdicmRyaGVhZFxwZ2 GlVQCmh134KMWbO1UzBAQh k2X5nfYsCrAdZQUqrYA6rn Z4IATwCD0ofarju7ubBYpu IAjzOZTfonJ0ftI3RLKjfC RgT7QlgI5qMQXbXJ7gppbi m0qjXYN8EIgsRIEpKBC3Ao RzZBFgw1Hsenv3CuVgl8Dl vSWtNQcgJ61so214CPSwdv BcN0zoeQVpazsfnZDgeoez LBxgerU0PURvWAaqsnggIB SbGIzqA5yvSsIwLONgwVto TCtqs6FyVXAoSMAoUoUlzX HnFPXmNhw6QCXqbJDpHGNb XgDwH7kksrwyZrWYRMEmq9 hzO5eemHSUpAYpW4NyIXra kqFaCKsbIPanYHBkAFO7GL 95JQhjMLIbsp89 CPT Code(s) (test code p8febHEzZTTiwPI8OtQdPB = 3357) Lmd7qmj1UvxDVxaTKaXDqa uRMwraTogh50uKX0uA38UA 0yGUMdUaE7DXTeggQ1Lfa3 GWOcZZMmwJTtM158e4etc7 nqryKosUV0pFvmUUGzODWh YWluXGZzMjAgODgzMDUgWC AkVQS1TDBzUuYYNqtlLXX6 CLINICAL HISTORY (test f0ltfSKpSSAesTE3EcGmRY code = 3356) Goh3gnk7CfoTQwqMAiDXry tSVfnwAqdb44vOG0fN07VW 8rSOYfMwR6HUQipuS5Fok6 XQWjIHXmvRBmH391q5pgw5 hwywXsjWB0zYyeFTXaPQBj LEfgKXLcTfBjmGHkMG7nAH Bhcn0= SPECIMEN SOURCE (test f2ouyOPwAQDayKV2RoMzWU code = 3377) Aqk4jkb0SxsFFjyJGvWJhd oVLbiiFujv57rSI0dD24OO 1uFUErEaV6IZQacpF9Apq1 WIRvOQYvfBOgU596p4lvz9 dzhiWcpUH2gDzoBYUsBSYj PGrcVWVqAdGbCA1fQIpxq6 DddARcfCjsVSKQMlVeZ4Zj lFGzR9xcAAZ8 GROSS DESCRIPTION (test k5dlvNUhQYNpvDRjSuRbBY code = 3366) ZhNYOmk5uoZLXgiXYrHaYt MzNcZnRuYmpcdWMxXGRlZm Rgo0bvw479pVQrb2gzAVKl UsW1mTJcCWLwzJEeN338i0 tsu3jlsgHplGJ4XNUwQKR3 WGwmwuLojuY4DZzxgGGyHj C1BYpbwpJtDLdktnAzwhEg Pwq0ULDaC897RXQ7eRbju6 ysGPM2USLnXLFzFoIcKm0r pOCeY060EFEzMTLNEQNbzO k3NTCdxvWhmiJalITVw160 X496d3kfGGPhzeKlmNiBwg mgs3ruZ923HJUyxZQdqiWv MlAfSGXecVOikKI4YGCqAC 5dbzzwHzIgPX0owefaVuPz HZ5rtaz8GsDyOF7umtleXf NlOIjmWZMzhkzuXBMzu6Ps pogcVG0kO7Rii1H1bS2bxB NzDSLymPLbUlDaILWwmz5m yXLgODfbv1ErKVJ3hyN5cI KzcQUaFAQpPC61Hbuqa9Dy WcepCWD8QFLcwcHce2Ffb9 keWzOdnmSkX0ohL2XiWKWv NNJhNSVpAsQotcPbw3Bmo2 NwfKXdnJs7w4gbQJHuZFVc hIolx7rxOIO5CIQtB6S9dG Iyy1krTEjiYZQnuWP5wnyu JDcnAVOhxcL7xgroXNonFT NldQQ6jrudQKbbXFCnFhL8 jrdoKApbLMGsGLQ5EQyhd4 93VVT2JZsnZoprYEakBGVq bmNvbnRccGduZGVjXHBsYW luXHBsYWluXGYwXGZzMjRc zSqutBhyhH5cGzBsJzPeKK jwCZ2zQAFsX9rrmONjXAUi TKIeI5nbDjFtgE7gyOfxAI xmczIwIEEuICBSZWNlaXZl JAVderEsg7HiJSqaqxKbQQ ZxiOTiFOVfEJOzQWVhZR12 D5KawsAcMBykDBOyVDKgyL 9hIU63zZGcwmJrtgKqWzho g3ClvFVyFzcizRH8GqFkxl DsVKW1UC4bzPgbwmG3yOPn lVGgMzZrP38eplQcWK5sLU O8jodhRiO9gCL0vyFvAdDh O04unH9rN0OvPTPkh9XpVN wlSU5qcN0rWFuzrQJvBKTc SOFluMu8UJYiOESbaaSfc3 OdoUi0oTBsRFofDBEmfY4q bS3zFXBiYZAevzrtTMItEu 2iDCDiN9WbexRcIBvdPHXb eg4pcExyICtxRkYhQACzvQ duTTVlxJcghzIbsfBeGM4e FBNgS9Svq7Lgk75jyhVnJr OuMTSpMATsK2ZswRBhFdUl aXMgYSAwLjIgeCAwLjIgeC ImLfQoM64kyOIoAMPvnhlu yEqod7MgZCHpAYslWC17PE doaWNoIGlzIGZpbHRlcmVk ERGwEATruOQloQJ4FBGwhC 3nqL11rfHhwyAFDM3wrGPs XJJlmpYQeKzemwVSsgi1WN xsZXMsIFBBLCBIVCAoQVND UClccGFyfQ== MICROSCOPIC DESCRIPTION h3oheIZvBDOleJT4RtNdKC (test code = 3371) Cnz2owg2RurGEfiCRxVEul tVZspjOymy52mSQ7eI77NQ 5tWNZpYbG5CZVwhmI8Oam0 MODeWXUhnUAcQ811s5oww1 nfvbNvkOY8eYweCOSzUULj IFsnECBuBtUcTRKqPo2raL VkLlxwYXJ9 SPECIAL STUDIES (test j0dioIYqSDFnc4ysPQXirE code = 3376) FuZzEwMzNcZnRuYmpcdWMx ATvxqnXmUKuaa5WpY4UpEb AwMFxhbnNpXGRlZmxhbmcx AEZtETU5beVjBWFvWHspGZ ArIOruUa7isAHvuGlbBoLq KYDcq1vnmsIFjqkffHm4c6 ycZVDvRhU4zXLjZUlsV4nc ntZrjWKrH8TdgLDumWg9s4 exIuIwFeJ3zYLcYAsgR9qu hyJczSFxHAZePNq4oQ83FJ TdjA8faEQvKXsvxbQdAiK7 QSfsXOErUgV4PEUdvVXjAM YfE6rfWEReXKouKAIkAYqz hIQgXDS7vIamm9A5oUZgxL SyySuqQfKgKfMsSrBZu1Kk GIn8iWdcJ6DfRIUkVuW6hU QgUGFyYWdyYXBoIEZvbnQ7 lVvfajFpp44hlYFlXQVyQN FeAcGhyIhrQYXgXZHEq8Hk xUndHDR3oKm9pEqzTaevTO A8Fei1CP7maa38srn5cUzp EGMvhfctZfA0LImiPVTwvh pjCXx9FSavOQLycBA2OWAv pQNfV9HvJKUjRM9vysp5IK Q6KCtmILEmMtX0DQNqpKKf YOUiqPqaJWdlf828KNJ1Nr ZbEK3pE7Yfv5N1jS2wuIGv SYXeaKEtTmUeTGUqme3scH YtPCucl7VjTMR0mhN9zLJl pLXhIPZySR58Epbbu3VpNn dvf1TsS20hnKW6DJtrb5bj WC1fTwF2imKzVOgch7klsR 3zXsE0ZCwzAM2uYH7oCXKo oL9vyqfsGUGuOsDqofkpEK MivObwbzPqVx4kdYzoXYB2 ECrpH8vsbH5nQiR4QAxvZ1 bweH6iPRg6YIquuSP3FOCr oQ3zMD9rmpvqv2prPRdsZT wiHLCajzN9bfB0TVCvmEPx B1OzaD4jFFBuVB0omtxwj2 atGEW9FAdfVJPuWUJ6WcNv IGBbs3Xpkqf6GiBwq6UlxI XoBJnoD32nl713LDNlowQy D5igeUVzwevkoGOhtywmIU ihyeR1VBYhRAJeLNjkBPOt XGZzMjJcbGFuZzEwMzNcaG ljaFxmMVxkYmNoXGYxXGxv P6veIzNfR7XcPJWqAdOyRO eoYIkruMPrmPKxwPA3aA4u ZJ7bQCGszGJfO3QyHNCftq CsePOzBEN8rQTshBBvYN2a BVsafCSpe6mfz9CgI5dpqH zvaKT0FG9hSIOlIGNoLRfi g8HikO7wNjaebPDenxzhTQ xmczIyXGxhbmcxMDMzXGhp N7lzBnClDDTwdLadYGhhc3 NoXGYxXGNmMlxmczIyXGx0 cmNoXHBhclxwYXJccGxhaW 3jXcIcMoZnVlmsWH2cCWGo Q5dkyVMuEUWwMCXrN4zrZs HrtP3ceTvaGZhpJhOuKcOd UjZOe273vb8kYMBnsWRcvk PJpABxdY7pJIkcZYmnXLmt cDIkXAkgn0rwXXMli1j2zY TsAHRmmqVnr4cyYWjiapCl WUPwyWWefWGtJMHhp54cLH zfjJadiAnwKZUot9XewGiu b8LuPzTlQSsbv2MwE68mcO JvbCBzbGlkZXMgcnVuIGFs p72zp7taJPPiSeP4dEMgfE Q7sYAzaHRtt9HuyAtmGIUg z4hgKTIhsw9ngvkzcUYmz6 PveX5avhstZKhjvFAwjvSx DUBwp0g7xKMyPNJoMOHcHR vsnHp6PAVha474fw0nzqK8 aDZtCAG8FYjuXMFbUGEkjl UgZXZhbHVhdGVkXHBsYWlu XGYxXGZzMjJcbGFuZzEwMz NcaGljaFxmMVxkYmNoXGYx NCuzS1bmAmSpH8LlQYJbMx VjwBEiR5wgfCNvGYYzJSme XGYxXGZzMjJcbGFuZzEwMz NcaGljaFxmMVxkYmNoXGYx ILhbC4kwEhNzT2KcZLUvWh IgIFxwbGFpblxmMVxmczIy HTeqcqaoHKVcSMpsB2fbMx IgJYSieJdoNKjlq0ErLRYf JMIzDlwwtrDwGYu3fjOqFN BhclxwbGFpblxmMVxmczIy JZmluiamWSIuMWjsB2qpNs VfRZGlvOihVQgxy8RuXEHs XGNmMlxmczIyIEltbXVub2 lbf9JpD0hjrTfsuAF1WDSb I0ikdLCbgKF8GCK5aR6gZH xbfoNkQJLhk5PbZWAzTXOn UqM3zB3xMST8VqBKjUxnAL BsYWluXGYxXGZzMjJcbGFu ZzEwMzNcaGljaFxmMVxkYm NqXCOrXXzkJ1stBaAyZ8Sa WTEyTqCaaXdoDCsbGWq4Ft xwbGFpblxmMVxmczIyXGxh hirnMPJsHZvyE5svZwQzGF QuhPyoSUgvf6PxKSDmEGYj MlxmczIyIHMgTWVkaWNhbC NYXR60REUtZCVczKtzfJ8o wSWUOOSqucT2f1L2WVgkOV GlXNp2VOrqfiEtXXNimC3t HYWkYV1tIFt6hqHuXCDwv8 NkNV2vDSZxhXLkUFB2LKSd b0KuT1Sep6MrCHTnDZCdji 6xuvLdRtTMiYGcKNCbms65 XLMnDN2mG6yvIGMwAPShjg OlzQFel9QyTFUweTZ1jALd MS1NNlZBp57vAMZyINOQls ZkKWWkmBrzeAK1grJ8tJ4n LiBUaGUgRkRBIGhhcyBkZX Kukl2sfqGoPMKzBKErt5Ka rDTbtJMjrkPmE3Osm5BsAT Mxgf63QHvwhOGqpd80LG8v B5Gvw0BmpP1mNMnsNEGpw4 IzjICslNFvVITtu2YoW9tl zeiaTSrpdQCnyG6bJALzQN v6XIRpe3RcYXDvt8XxYsXf jtTlKOAvVYYtBUUywK15HH O9dKokcDnfbmFkGV6bXJJs kqJrQSQaUBJrjO4dBEvbzq EgOGMcmmD0c7L6OOnaJCLs akByWgfzVNQ1wpDdnfX4yX TyY2cfrcmsSWzyBSEns6Ds vD9txREJjBDbw5AlvNUolM QQpJFrLV2kxlUfHU0vYTD0 ODggKENMSUEtODgpIGFzIH E8IZoxBygcLTP3tbAvQHFz l5WpREnlN1moG60hjUweuL g1iHYzoEcnyQSxlPMvTPCf akU5a0U0VOOtu1ClstcwVR BsYWluXGYyXGZzMjJcbGFu ZzEwMzNcaGljaFxmMlxkYm MeEWQmLQnzP8pgIkRcDcRl QyubTLC5nQ== Gross assessment was [facility] performed at ([facility], = 2777) Department of Pathology, [address] [place] [address], Technical component was [facility] performed at ([facility], = 9825) Department of Pathology, [address] [place] [address], Professional component [facility] was performed at ([facility], code = 277) Department of Pathology, [address] [place] [address], [facility] [id number] 14:24:00Surgical Pathology Report Case: [id number] Authorizing Provider: Sarkis Laboy, Collected: 10/01/2020 09:43 AM OrderingLocation: [place] [address] ccu Received: 10/01/2020 01:48 PM Pathologist: Pa [...] OR CARCINOMA Signing Pathologist Direct Phone Line: [phone] signed by Pa Peters MD on 10/02/2020 at 2:24 [id number] X 2, [phone] F9oazztrD. GastricB. GastricA. Received in formalin labeled the [...] evaluated Immunohistochemistry technical testing was performed at [facility], Pathology Laboratory where it was developed [...] qualified to perform high complexity clinical laboratory testing.[facility], Department of Pathology, [address] [place] [address], [facility], [address] [place] [address], [facility], [facility] of [facility]ology, [address] [place] [address], WQDF-GLUCOSE [id number] 11:33:00 Test Item Value Reference Range Interpretation Comments POC-GLUCOSE METER 124 mg/dL 70-110 H : TESTED A T [facility] 6720 ([employer]) (test code = [facility], 153) [address]: [employer]/Techni min ID = [id number] for Be noit, Kyaira POCT-GLUCOSE [id number] 08:15:00 Test Item Value Reference Range Interpretation Comments POC-GLUCOSE METER 106 mg/dL 70-110 : TESTED A T [facility] 6720 ([employer]) (test code = [facility], 153) [address]357: [employer]/Techni min ID = [id number] for Be noit, Kyaira Comprehensive metabolic [id number] 05:17:00 Test Item Value Reference Range Interpretation Comments Protein, Total (test 6.1 See_Comment [Autom ated code = 2885-2) message] The system which generated this result transmit altagracia reference range : 6.0 - 8.3 gm/dL . The reference range was not u sed to interpret th is result as normal/abnormal . Albumin (test code = 2.6 g/dL 3.5-5 L 86671-3) Alkaline Phosphatase 85 U/L 40-150 (test code [...] (test code = 7.7 mg/dL 8.4-10.2 L 01160-8) AST (test code = 17 U/L 5-34 1920-8) ALT (test code = 9 U/L 6-55 1742-6) EGFR (test code = 35 mL/min/1.73 [place] [address]-2) NOT ACCURATE CREATININE CLEARANCE IN PREDICTING GLOMERULAR FILTRATION RATE . ESTIMATED GFR I S NOT APPLICABLE FOR DIALYSIS PATIEN TS. ELIANA (test code = ELIANA) [employer] ID - EDASI Lab Interpretation Abnormal (test code = 37995-7) [facility] [id number] 05:17:00 Test Item Value Reference Range Interpretation Comments Protein, Total (test 6.1 See_Comment [Autom ated code = 2885-2) message] The system which generated this result transmit altagracia reference range : 6.0 - 8.3 gm/dL . The reference range was not u sed to interpret th is result as normal/abnormal . Albumin (test code = 2.6 g/dL 3.5-5 L 41107-4) Alkaline Phosphatase 85 U/L 40-150 (test code = 6768-6) Total Bilirubin (test 0.3 mg/dL 0.2-1.2 code = 1974-) Sodium (test code = 133 meq/L 136-145 L 2951-2) Potassium (test code 4.0 meq/L 3.5-5.1 = 2823-3) Chloride (test code = 106 meq/L 98-107 2075-0) CO2 (test code = 17 meq/L 22-29 L 8-9) BUN (test code = 37 mg/dL 7-21 H 3094-0) Creatinine (test code 1.94 mg/dL 0.57-1.25 H = 2160-0) Glucose (test code = 116 mg/dL 70-105 H 2345-7) Calcium (test code = 7.7 mg/dL 8.4-10.2 L 99086-5) AST (test code = 17 U/L 5-34 1920-8) ALT (test code = 9 U/L 6-55 1742-6) EGFR (test code = 35 mL/min/1.73 [place] [address]-9) NOT ACCURATE CREATININE CLEARANCE IN PREDICTING GLOMERULAR FILTRATION RATE . ESTIMATED GFR I S NOT APPLICABLE FOR DIALYSIS PATIEN ELIANA (test code = ELIANA) [employer] ID - EDASI Lab Interpretation Abnormal (test code = 74963-9) [facility]uraCom[facility] metabolic [id number] 05:17:00 Test Item Value Reference Range Interpretation Comments Protein, Total (test 6.1 See_Comment [Autom ated code = 2885-2) message] The system which generated this result transmit altagracia reference range : 6.0 - 8.3 gm/dL . The reference range was not u sed to interpret th is result as normal/abnormal . Albumin (test code = 2.6 g/dL 3.5-5 L 02407-1) Alkaline Phosphatase 85 U/L 40-150 (test code = 6768-6) Total Bilirubin (test 0.3 mg/dL 0.2-1.2 code = 1974-) Sodium (test code = 133 meq/L 136-145 L 2951-2) Potassium (test code 4.0 meq/L 3.5-5.1 = 2823-3) Chloride (test code = 106 meq/L 98-107 5-0) CO2 (test code = 17 meq/L 22-29 L 8-9) BUN (test code = 37 mg/dL 7-21 H 3094-0) Creatinine (test code 1.94 mg/dL 0.57-1.25 H = 2160-0) Glucose (test code = 116 mg/dL 70-105 H 2345-7) Calcium (test code = 7.7 mg/dL 8.4-10.2 L 62783-1) AST (test code = 17 U/L 5-34 1920-8) ALT (test code = 9 U/L 6-55 1742-6) EGFR (test code = 35 mL/min/1.73 [place] [address]-4) NOT ACCURATE CREATININE CLEARANCE IN PREDICTING GLOMERULAR FILTRATION RATE . ESTIMATED GFR I S NOT APPLICABLE FOR DIALYSIS PATIEN TS. ELIANA (test code = ELIANA) [employer] ID - EDASI Lab Interpretation Abnormal (test code = 50177-6) [facility]uraCOMPREHENSIVE METABOLIC [id number] 05:17:00 Test Item Value Reference Range Interpretation [...] S NOT APPLICABLE FOR DIALYSIS PATIEN TS. [employer] ID - EDASICBC W/PLT COUNT & AUTO [id number] 04:32:00 Test Item Value Reference Range Interpretation [...] PERCENT (BEAKER) (test code = 2801) POCT-GLUCOSE [id number] 21:36:00 Test Item Value Reference Range Interpretation Comments POC-GLUCOSE METER 146 mg/dL 70-110 H : TESTED A T [facility] 6720 (BEAKER) (test code = DEVON Serrato [facility], 1538) [address]: [employer]/Techni min ID = [id number] for Johana Vasquez Hemoglobin [id number] 15:28:00 Test Item Value Reference Range Interpretation Comments Hemoglobin A1C (test code = 4548-4) 5.6 % 4.3-6.1 Lab Interpretation (test code = Normal 92406-0) [facility] [id number] 15:28:00 Test Item Value Reference Range Interpretation Comments Hemoglobin A1C (test code = 4548-4) 5.6 % 4.3-6.1 Lab Interpretation (test code = Normal 82649-2) [facility] [id number] 15:28:00 Test Item Value Reference Range Interpretation Comments Hemoglobin A1C (test code = 4548-4) 5.6 % 4.3-6.1 Lab Interpretation (test code = Normal 00021-5) [facility]uraHEMOGLOBIN [id number] 15:28:00 Test Item Value Reference Range Interpretation Comments HEMOGLOBIN A1C (BEAKER) (test code = 5.6 % 4.3-6.1 368) CBC W/PLT COUNT & AUTO [id number] 12:44:00 Test Item Value Reference Range Interpretation [...] PERCENT (BEAKER) (test code = 2801) POCT-GLUCOSE [id number] 11:11:00 Test Item Value Reference Range Interpretation Comments POC-GLUCOSE METER 125 mg/dL 70-110 H : TESTED A T [facility] 6720 (WENDI) (test code = DEVON Serrato [facility], 1538) 426[address]: [employer]/Techni min ID = [id number] for BE LL, BEAULA Vancomycin level, [id number] 10:39:00 Test Item Value Reference Range Interpretation Comments Vancomycin Rm (test 4.8 ug/mL code = 14457-5) ELIANA (test code = Reference Range: No ELIANA) NormalsOperator [place] [facility] level, [id number] 10:39:00 Test Item Value Reference Range Interpretation Comments Vancomycin Rm (test 4.8 ug/mL code = 05767-8) ELIANA (test code = Reference Range: No ELIANA) NormalsOperator [facility] Monicaycin level, [id number] 10:39:00 Test Item Value Reference Range Interpretation Comments Vancomycin Rm (test 4.8 ug/mL code = 18498-1) ELIANA (test code = Reference Range: No ELIANA) NormalsOperator [facility] CenterY[facility]IN LEVEL, [id number] 10:39:00 Test Item Value Reference Range Interpretation Comments VANCOMYCIN RANDOM (BEAKER) (test 4.8 ug/mL code = 523) Reference Range: No NormalsOperator ID - COLBY CPOCT-GLUCOSE [id number] 08:38:00 Test Item Value Reference Range Interpretation Comments POC-GLUCOSE METER 119 mg/dL 70-110 H : TESTED A T [facility] 6720 (NELAKER) (test code = [facility], 1538) [address]: Cashier [employer]/Techni min ID = [id number] for BE LL, BEAULA SARS-CoV2/RT-PCR (Asymptomatic ONLY)2020-10-01 08:13:00 Test Item Value Reference Range Interpretation Comments SARS-COV2/RT-PCR Negative Not Detected, (test code = Negative, See 31200-5) external report for linked test SARS-COV-2 [facility] (test code = 45890-8) ELIANA (test code = Negative result for [...] of the Act. Fact Sheet for Healthcare Providers:https://www.[place] idel.ParentingInformer/sites/default/f dorys/product/documents/F act_Sheet_HC_Providers_L kyy_UDQD-LyL-4.pdf Fact Sheet for Healthcare Patients:https://www.[employer] del.ParentingInformer/sites/default/fi les/product/documents/Fa ct_Sheet_Patients_Lyra_S ARS-CoV-2.pdf Performing Laboratory:[facility] [place] [address] [facility]2020-10-01 08:13:00 Test Item Value Reference Range Interpretation Comments SARS-COV2/RT-PCR Negative Not Detected, (test code = Negative, See 86952-0) external report for linked test SARS-COV-2 [facility] (test code = 53831-5) ELIANA (test code = Negative result for [...] of the Act. Fact Sheet for Healthcare Providers:https://www.[place] ideBath Planet of [place].ParentingInformer/sites/default/f dorys/product/documents/F act_Sheet_HC_Providers_L tdy_EYDQ-XhR-6.pdf Fact Sheet for Healthcare Patients:https://www.[employer] del.ParentingInformer/sites/default/fi les/product/documents/Fa ct_Sheet_Patients_Lyra_S ARS-CoV-2.pdf Performing Laboratory:[facility] [place] [address] [facility] (Asymptomatic ONLY)2020-10-01 08:13:00 Test Item Value Reference Range Interpretation Comments SARS-COV2/RT-PCR Negative Not Detected, (test code = Negative, See 87706-1) external report for linked test SARS-COV-2 [facility] (test code = 41438-2) ELIANA (test code = Negative result for [...] of the Act. Fact Sheet for Healthcare Providers:https://www.[employer].ParentingInformer/sites/default/f dorys/product/documents/F act_Sheet_HC_Providers_L akc_SOXG-FjD-0.pdf Fact Sheet for Healthcare Patients:https://www.[employer]/sites/default/fi les/product/documents/Fa ct_Sheet_Patients_Lyra_S ARS-CoV-2.pdf Performing Laboratory:[facility] [place] [address] [facility] (HS & REF LABS)2020-10-01 08:13:00 Test Item Value Reference Range Interpretation Comments SARS-COV2/RT-PCR (test Negative Not Detected, Negative, code = 3519410) See external report for linked test SARS-COV-2 PERFORMING LAB [facility] (test code = 1718704) Negative result for this test determines that [...] 564(g) of the Act.Fact Sheet for Healthcare Providers:https://www.[employer].ParentingInformer/sites/default/files/product/documents/Fact_Sheeddie hewittg_UU_Qnpswciyt_Qvrq_TQGF-JfW-4.pdfFact Sheet for Healthcare Patients:https://www.[employer]/sites/default/files/product/ documents/Awqj_Mctdl_Gyultcpi_Plkz_BZRG-LwK-9.pdfPerforming Laboratory:[facility], [place] [address]Vwsqbnpj3008-38-82 06:20:00 Test Item Value Reference Range Interpretation Comments Ferritin (test code = 61.09 ng/mL 5-275 2276-4) ELIANA (test code = ELIANA) [employer] ID - PIAYA L Lab Interpretation (test Normal code = 06021-2) [facility] and Ptbjbo9671-52-35 06:20:00 Test Item Value Reference Range Interpretation Comments Vitamin B12 (test 267 pg/mL 213-816 code = 2132-9) Folate (test code = 11.30 ng/mL See_Comment [Automa altagracia 2284-8) message] The system which generated this result transmit altagracia reference range : >=7.00. The reference range was not used to interpret this result as normal/abnormal . ELIANA (test code = ELIANA) [employer] ID - PIAYA L Lab Interpretation Normal (test code = 69858-8) [facility]21-[facility] 06:20:00 Test Item Value Reference Range Interpretation Comments Ferritin (test code = 61.09 ng/mL 5-275 2276-4) ELIANA (test code = ELIANA) [employer] ID - PIAYA L Lab Interpretation (test Normal code = 85445-9) [facility]12 and Lxyaip0141-38-71 06:20:00 Test Item Value Reference Range Interpretation Comments Vitamin B12 (test 267 pg/mL 213-816 code = 2132-9) Folate (test code = 11.30 ng/mL See_Comment [Automa altagracia 2284-8) message] The system which generated this result transmit altagracia reference range : >=7.00. The reference range was not used to interpret this result as normal/abnormal . ELIANA (test code = ELIANA) [employer] ID - PIAYA L Lab Interpretation Normal (test code = 21142-0) [facility]2021-03-19 06:20:00 Test Item Value Reference Range Interpretation Comments Ferritin (test code = 61.09 ng/mL 5-275 2276-4) ELIANA (test code = ELIANA) [employer] ID - ASHLEIGH L Lab Interpretation (test Normal code = 72195-9) [facility] and Qudxoy0212-12-11 06:20:00 Test Item Value Reference Range Interpretation Comments Vitamin B12 (test 267 pg/mL 213-816 code = 2132-9) Folate (test code = 11.30 ng/mL See_Comment [Automa altagracia 2284-8) message] The system which generated this result transmit altagracia reference range : >=7.00. The reference range was not used to interpret this result as normal/abnormal . ELIANA (test code = ELIANA) [employer] ID - ASHLEIGH Day Lab Interpretation Normal (test code = 48244-1) [facility]ERR[facility]IN2021-03-19 06:20:00 Test Item Value Reference Range Interpretation Comments FERRITIN (BEAKER) (test code = 61.09 ng/mL 5.00-275.00 361) [employer] ID - ASHLEIGH LVITAMIN B12 AND TYOHCE2325-30-02 06:20:00 Test Item Value Reference Range Interpretation Comments VITAMIN B12 267 pg/mL 213-816 (BEAKER) (test code = 774) FOLATE (BEAKER) 11.30 ng/mL See_Comment [Automated message] (test code = 362) The system which generated this result transmitted ref erence range: >=7.00. The reference range was not used to interpr et this result as normal/abnormal . [employer] ID - ASHLEIGH George, TIBC, % sat. (without ferritin)2020-10-01 06:04:00 Test Item Value Reference Range Interpretation Comments Iron (test code = 2498-4) 17.0 ug/dL 40-160 L TIBC (test code = 2500-7) 323 ug/dL 250-450 Iron % Saturation (test 5 % 20-55 L code = 2502-3) ELIANA (test code = ELIANA) [employer] ID - ASHLEIGH L Lab Interpretation (test Abnormal code = 78215-1) [facility], TIBC, % sat. (without ferritin)2020-10-01 06:04:00 Test Item Value Reference Range Interpretation Comments Iron (test code = 2498-4) 17.0 ug/dL 40-160 L TIBC (test code = 2500-7) 323 ug/dL 250-450 Iron % Saturation (test 5 % 20-55 L code = 2502-3) ELIANA (test code = ELIANA) [employer] ID - ASHLEIGH L Lab Interpretation (test Abnormal code = 69222-4) [facility], TIBC, % sat. (without ferritin)2020-10-01 06:04:00 Test Item Value Reference Range Interpretation Comments Iron (test code = 2498-4) 17.0 ug/dL 40-160 L TIBC (test code = 2500-7) 323 ug/dL 250-450 Iron % Saturation (test 5 % 20-55 L code = 2502-3) ELIANA (test code = ELIANA) [employer] ID - ASHLEIGH L Lab Interpretation (test Abnormal code = 96883-6) [facility], TIBC, % SAT. (WITHOUT FERRITIN)2020-10-01 06:04:00 Test Item Value Reference Range Interpretation Comments IRON (BEAKER) (test code = 547) 17.0 ug/dL 40.0-160.0 L TOTAL IRON BINDING CAPACITY 323 ug/dL 250-450 (BEAKER) (test code = 769) IRON % SATURATION (2) (BEAKER) 5 % 20-55 L (test code = 2590) [employer] ID - STEPHENIEAYA LPOCT-GLUCOSE [id number] 05:23:00 Test Item Value Reference Range Interpretation Comments POC-GLUCOSE METER 116 mg/dL 70-110 H : [facility] T [facility] (BEAKER) (test code [facility], = 1538) 25066: Cashier [employer]/Techni min ID = [id number] for JUNIE ALICIA CBC W/PLT COUNT & AUTO [id number] 03:26:00 Test Item Value Reference Range Interpretation [...] (BEAKER) (test code = 2801) COMPREHENSIVE METABOLIC [id number] 03:22:00 Test Item Value Reference Range Interpretation [...] S NOT APPLICABLE FOR DIALYSIS PATIEN TS. [employer] ID - DBCBC W/PLT COUNT & AUTO [id number] 20:14:00 Test Item Value Reference Range Interpretation [...] PERCENT (BEAKER) (test code = 2801) POCT-GLUCOSE [id number] 20:12:00 Test Item Value Reference Range Interpretation Comments POC-GLUCOSE METER 134 mg/dL 70-110 H : TESTED A T [facility] 6720 (BEAKER) (test code [facility], = 1538) 34617: Cashier [employer]/Techni min ID = [id number] for JUNIE ALICIA CBC (HEMOGRAM ONLY)2020-09-30 15:28:00 [...] 0-0 (BEAKER) (test code = 413) POCT-GLUCOSE [id number] 14:32:00 Test Item Value Reference Range Interpretation Comments POC-GLUCOSE METER 106 mg/dL 70-110 : TESTED A T [facility] 6720 (BEAKER) (test code = [facility] [address]: Cashier [employer] Gasoline/Techni imn ID = [id number] for CHUY SWANN HEMOGLOBIN [id number] 11:57:00 Test Item Value Reference Range Interpretation Comments HEMOGLOBIN A1C (BEAKER) (test code = 5.6 % 4.3-6.1 368) U/S, ABDOMINAL, [id number] 11:53:00Abdomen limited area? Add comment if clarification is needed.->Right upper quadrantReason for exam:->liver cirrhosis; E[facility]H [facility] : 1950 Sex: MFINAL [...] for chronic medical renal disease. Signed: Caity Hernadezort Verified Date/Time: 09/30/2020 11:53:08 US abdomen [id number] 11:53:00Interface, External Ris In - 09/30/2020 11:55 [...] chronic medical renal disease. Signed: Caity Hernadez [facility] Verified Date/Time: 09/30/2020 11:53:08 Electronically signedby: CAITY HERNADEZ MD on 09/30/2020 11:53 [facility] [id number] 11:53:00Interface, External Ris In - 09/30/2020 11:55 [...] MDReport Verified Date/Time: 09/30/2020 11:53:08 Electronically signedby: CAIYT HERNADEZ MD on 09/30/2020 11:53 [facility] [id number] 11:53:00Interface, External Ris In - 09/30/2020 11:55 AM CDTFINAL REPORT TECHNIQUE: Gr ayscale ultrasound of the right abdomen. INDICATION: liver [...] No intrahepatic biliary ductal dilatation. PANCREAS: Incompletely v isualized due to overlying bowel gas. The partially [...] signedby: CAITY HERNADEZ MD on 09/30/2020 11:53 [facility] w/Microscopic + Reflex to [id number] 10:53:00 Test Item Value Reference Range Interpretation Comments Color, UA (test code Light Yellow = 5778-6) Clarity, UA (test Clear code = 5767-9) Specific [place], UA 1.014 1.001-1.035 (test code = 5811-5) pH, UA (test code = 6.0 5.0-8.0 5803-2) Protein, UA (test 200 mg/dL Negative A code = 44150-9) Glucose, UA (test 50 mg/dL Negative A code = 365) Ketones, UA (test Negative Negative code = 2514-8) Bilirubin, UA (test Negative Negative code = 76165-9) Blood, UA (test code Small Negative A = 63466-5) Nitrite, UA (test Negative Negative code = 5802-4) Leukocytes, UA (test Negative Negative code = 5799-2) Urobilinogen, UA 0.2 mg/dL 0.2-1 (test code = 49569-5) RBC, UA (test code = 1 See_Comment [Autom ated 95478-5) message] The system which generated this result [...] . Bacteria, UA (test Few code = 84541-5) Mucus (test code = Few 8247-9) Squam Epithel, UA 1 See_Comment [Automate d (test code = 50772-5) messag e] The system which generated this result transmit altagracia reference range : /HPF. The reference range was not used to interpret this result as normal/abnormal . Hyaline Casts, UA 6 See_Comment [Automate d (test code = 92382-0) messag e] The system which generated this result transmit altagracia reference range : /LPF. The reference range was not used to interpret this result as normal/abnormal . Specimen Source (test code = 2795) ELIANA (test code = ELIANA) [employer] ID - [auto][employer] ID - tech Lab Interpretation Abnormal (test code = 66067-2) [facility] + Reflex to Culture 2020-09-30 10:53:00 Test Item Value Reference Range Interpretation Comments Color, UA (test code Light Yellow = 5778-6) Clarity, UA (test Clear code = 5767-9) Specific [place], UA 1.014 1.001-1.035 (test code = 5811-5) pH, UA (test code = 6.0 5.0-8.0 5803-2) Protein, UA (test 200 mg/dL Negative A code = 46967-9) Glucose, UA (test 50 mg/dL Negative A code = 365) Ketones, UA (test Negative Negative code = 2514-8) Bilirubin, UA (test Negative Negative code = 77006-2) Blood, UA (test code Small Negative A = 37936-7) Nitrite, UA (test Negative Negative code = 5802-4) Leukocytes, UA (test Negative Negative code = 5799-2) Urobilinogen, UA 0.2 mg/dL 0.2-1 (test code = 54394-3) RBC, UA (test code = 1 See_Comment [Autom ated 09643-0) message] The system which generated this result [...] . Bacteria, UA (test Few code = 79639-4) Mucus (test code = Few 8247-9) Squam Epithel, UA 1 See_Comment [Automate d (test code = 45514-8) messag e] The system which generated this result transmit altagracia reference range : /HPF. The reference range was not used to interpret this result as normal/abnormal . Hyaline Casts, UA 6 See_Comment [Automate d (test code = 87143-0) messag e] The system which generated this result transmit altagracia reference range : /LPF. The reference range was not used to interpret this result as normal/abnormal . Specimen Source (test code = 2795) ELIANA (test code = ELIANA) [employer] ID - [auto]C[employer] ID - tech Lab Interpretation Abnormal (test code = 12782-7) [facility]/Microscopic + Reflex to Culture 2020-09-30 10:53:00 Test Item Value Reference Range Interpretation Comments Color, UA (test code Light Yellow = 5778-6) Clarity, UA (test Clear code = 5767-9) Specific [place], UA 1.014 1.001-1.035 (test code = 5811-5) pH, UA (test code = 6.0 5.0-8.0 5803-2) Protein, UA (test 200 mg/dL Negative A code = 23867-6) Glucose, UA (test 50 mg/dL Negative A code = 365) Ketones, UA (test Negative Negative code = 2514-8) Bilirubin, UA (test Negative Negative code = 63160-3) Blood, UA (test code Small Negative A = 43517-4) Nitrite, UA (test Negative Negative code = 5802-4) Leukocytes, UA (test Negative Negative code = 5799-2) Urobilinogen, UA 0.2 mg/dL 0.2-1 (test code = 60409-6) RBC, UA (test code = 1 See_Comment [Autom ated 82198-7) message] The system which generated this result [...] . Bacteria, UA (test Few code = 28804-3) Mucus (test code = Few 8247-9) Squam Epithel, UA 1 See_Comment [Automate d (test code = 62997-6) messag e] The system which generated this result transmit altagracia reference range : /HPF. The reference range was not used to interpret this result as normal/abnormal . Hyaline Casts, UA 6 See_Comment [Automate d (test code = 14944-2) messag e] The system which generated this result transmit altagracia reference range : /LPF. The reference range was not used to interpret this result as normal/abnormal . Specimen Source (test code = 2795) ELIANA (test code = ELIANA) [employer] ID - [auto][employer] ID - tech Lab Interpretation Abnormal (test code = 14558-5) [facility]/ REFLEX URINE [id number] 10:53:00 Test Item Value Reference Range Interpretation [...] code = 514) SOURCE(BEAKER) (test code = 6571) [employer] ID - [auto][employer] ID - techLactic acid, [id number] 10:00:00 Test Item Value Reference Range Interpretation Comments Lactate, Venous (test code 1.08 mmol/L 0.5-2.2 = 2872) ELIANA (test code = ELIANA) [employer] ID - PIAYA L Lab Interpretation (test Normal code = 81670-6) [facility] [id number] 10:00:00 Test Item Value Reference Range Interpretation Comments Lactate, Venous (test code 1.08 mmol/L 0.5-2.2 = 2872) ELIANA (test code = ELIANA) [employer] ID - PIAYA L Lab Interpretation (test Normal code = 35879-0) [facility], [id number] 10:00:00 Test Item Value Reference Range Interpretation Comments Lactate, Venous (test code 1.08 mmol/L 0.5-2.2 = 2872) ELIANA (test code = ELIANA) [employer] ID - PIAYA L Lab Interpretation (test Normal code = 80623-0) [facility]CT[facility] ACID, [id number] 10:00:00 Test Item Value Reference Range Interpretation Comments LACTATE BLOOD VENOUS (2) (BEAKER) 1.08 mmol/L 0.50-2.20 (test code = 2872) [employer] ID - PIAYA LCBC W/PLT COUNT & AUTO [id number] 09:53:00 Test Item Value Reference Range Interpretation [...] = 2801) RAD, CHEST, 1 VIEW, NON [id number] 09:06:00Reason for exam:->? sob [facility] [...] Verified Date/ Time: 09/30/2020 09:06:18 Reading Location: [facility] Radiology Reading Room XR chest 1 view portable / [id number] 09:06:00Interface, External Ris In - 09/30/2020 9:24 AM CDTFINAL REPORT INDICATION: ? sob COMPARISON: None TECHNIQUE: Single frontal view of the chest. FINDINGS: Lungs and pleura: Clearlungs. No effusion.Heart and mediastinum: Normal heart size. Unremarkable mediastinal contours.Osseous structures: No acute abnormality.Other: None. IMPRESSION: No acute intrathoracic abnormality. Sign ed: Nahed Cleary Verified Date/Time: 09/30/2020 09:06:18 Reading Location: [facility] Radiology [facility] / [id number] 09:06:00Interface, External Ris In - 09/30/2020 9:24 AM CDTFINAL REPORT INDICATION: ? sob COMPARISON: None TECHNIQUE: Single frontal view of the chest. FINDINGS: Lungs and pleura: Clearlungs. No effusion.Heart and mediastinum: Normal heart size. Unremarkable mediastinal contours.Osseous structures: No acute abnormality.Other: None. IMPRESSION: No acute intrathoracic abnormality. Sign ed: Nahed Cleary Elmojohn Verified Date/Time: 09/30/2020 09:06:18 Reading Location: [facility] Radiology [facility] / [id number] 09:06:00Interface, External Ris In - 09/30/2020 9:24 AM CDTFINAL REPORT INDICATION: ? sob COMPARISON: None TECHNIQUE: Single frontal view of the chest. FINDINGS: Lungs and pleura: Clearlungs. No effusion.Heart and mediastinum: Normal heart size. Unremarkable mediastinal contours.Osseous structures: No acute abnormality.Other: None. IMPRESSION: No acute intrathoracic abnormality. Sign ed: Nahed Cleary Michel Verified Date/Time: 09/30/2020 09:06:18 Reading Location: [facility] Radiology Reading Room [facility] [place] [facility] COMPREHENSIVE METABOLIC [id number] 07:47:00 Test Item Value Reference Range Interpretation [...] S NOT APPLICABLE FOR DIALYSIS PATIEN TS. [employer] ID - [id number] 07:07:00 Test Item Value Reference Range Interpretation Comments PTT (test code = 03609-8) 25.1 See_Comment [ Automated message] The system [employer] generated this result transmitted ref erence range: 22.5 - 3 6.0 seconds. The re ference range was not u sed to interpret this result as normal/abnor mal. Lab Interpretation (test Normal code = 83560-1) [facility]PTT2021-03-18 07:07:00 Test Item Value Reference Range Interpretation Comments PTT (test code = 81720-7) 25.1 See_Comment [ Automated message] The system [employer] generated this result transmitted ref erence range: 22.5 - 3 6.0 seconds. The re ference range was not u sed to interpret this result as normal/abnor mal. Lab Interpretation (test Normal code = 61081-1) [facility]PTT2021-03-18 07:07:00 Test Item Value Reference Range Interpretation Comments PTT (test code = 08092-0) 25.1 See_Comment [ Automated message] The system [employer] generated this result transmitted ref erence range: 22.5 - 3 6.0 seconds. The re ference range was not u sed to interpret this result as normal/abnor mal. Lab Interpretation (test Normal code = 93089-3) [facility]2021-03-18 07:07:00 Test Item Value Reference Range Interpretation Comments PARTIAL THROMBOPLASTIN TIME 25.1 seconds 22.5-36.0 (WENDI) (test code = 760) PROTHROMBIN TIME/[id number] 07:07:00 Test Item Value Reference Range Interpretation Comments PROTIME (WENDI) 14.2 seconds 11.9-14.2 (test code = 759) INR (WENDI) (test 1.13 See_Comment [Automat ed message] code = 370) The system [employer] generated this result transmitted ref erence range: <=5.90. The reference range was not used to int erpret this result as normal/abnormal . Effective 12/11/2018: PT Reference Range ChangeNew: 11.9-14.2 Previous: 11.7- 14.7RECOMMENDED COUMADIN/WARFARIN INR THERAPY RANGESSTANDARD DOSE: 2.0-3.0 Includes: PROPHYLAXIS for venous thrombosis, systemic embolization; TREATMENT for venous thrombosis and/or pulmonary embolus.HIGH RISK: Target INR is2.5-3.5 for patients wiht mechanical heart valves.POCT-GLUCOSE [id number] 06:39:00 Test Item Value Reference Range Interpretation Comments POC-GLUCOSE METER 150 mg/dL 70-110 H : TESTED A T [facility] 6720 (WENDI) ([facility] = 1538) [address]: Cashier [employer]/Techni min ID = [id number] for JUNIE ALICIA [id number] 00:00:00Ordered by an unspecified provider.[facility]enturaEKG-[id number] 00:00:00Ordered by an unspecified provider. [facility]uraEKG-[id number] 00:00:00Ordered by an unspecified provider.[facility])2020-01-26 13:29:00 Test Item Value Reference Range Interpretation Comments SARS-COV2/RT-PCR (test code = Negative Not Detected, Negative 2450612) SARS-COV-2 PERFORMING LAB [facility] (test code = 9526519) Negative result for this test determines that [...] 564(g) of the Act.Fact Sheet for Healthcare Providers:https://www.[employer].com/sites/default/files/product/documents/Fact_Shee x_RY_Evepffisq_Cqft_DSDH-WjU-0.pdfFact Sheet for Healthcare Patients:https://www.[employer].com/sites/default/files/product/ documents/Oxdn_Ejyye_Mneqzjiv_Webp_WHAJ-QsW-6.pdfPerforming Laboratory:[facility] [place] [address]
--- NOTE | 2021-03-04 18:15 | RAD REPORT ---
EXAM DESCRIPTION: Rhonda Single View03/04/2021 5:52 pm CLINICAL HISTORY: Shortness breath COMPARISON: November 2020 FINDINGS: Mild bilateral pulmonary opacities. The heart is normal size IMPRESSION: Mild bilateral pulmonary opacities may represent pneumonia
[2021-03-04 18:31] LABS: Absolute Lymphocytes (CBC) 1.7 K/uL (0.7-4.9); Basophils % 1.3 % (0-1.3); Hematocrit 34.1 % (39.6-49.0); MPV 8.7 fL (7.6-11.3); Protime INR 0.87; RBC Red Blood Cell Count 3.86 M/uL (4.33-5.43)
[2021-03-04 18:43] LABS: ALT/SGPT 26 U/L (12-78); AST/SGOT 45 U/L (15-37); Albumin 2.6 g/dL (3.4-5.0); Alkaline Phosphatase 148 U/L (45-117); BUN Blood Urea Nitrogen 57 mg/dL (7-18); Bicarbonate 20 mmol/L (21-32); Bilirubin Direct 0.2 mg/dL (0-0.2); Bilirubin Total 0.4 mg/dL (0.2-1.0); Glucose Level 108 mg/dL (74-106); Magnesium 2.1 mg/dL (1.8-2.4); NT PRO-BNP 3720 pg/mL (<125); Potassium 3.6 mmol/L (3.5-5.1); Protein, Total 7.3 g/dL (6.4-8.2); Sodium Level 134 mmol/L (136-145); Troponin (Emerg Dept Use Only) < 0.02 ng/mL (0.0-0.045)
[2021-03-04] MEDS ORDERED: ACETAMINOPHEN 325 MG TABLET ONE (19:01)
[2021-03-04] MEDS ORDERED: NA CHLORIDE 0.9% 1,000 ML ONE (19:02)
[2021-03-04] MEDS ORDERED: ONDANSETRON 4 MG/2 ML VIAL ONE (19:02)
--- NOTE | 2021-03-04 20:53 | ER ---
Nurse's Notes [facility] [place] Name: Amaury Matamoros Age: 70 yrs Sex: Male : 1950 Arrival Date: 03/04/2021 Time: 15:42 Bed 13 Private MD: Garo Us Diagnosis: Vomiting;Acute Kidney Injury;Coronavirus Presentation: 03/04 17:11 Chief complaint: Patient states: Nausea, Vomiting, weakness, SOB, Fatigue x 3 days. kg Coronavirus screen: Client denies travel out of the [place] in the last 14 days. At this time, unable to obtain information related to travel outside the [place] Client presents with at least one sign or symptom that may indicate coronavirus-19. Standard/surgical mask placed on the client. Provider contacted for isolation considerations. Ebola Screen: Patient negative for fever greater than or equal to 101.5 degrees Fahrenheit, and additional compatible Ebola Virus Disease symptoms Patient denies exposure to infectious person. Patient denies travel to an Ebola-affected area in the 21 days before illness onset. Initial Sepsis Screen: Does the patient meet any 2 criteria? No. Patient's initial sepsis screen is negative. Does the patient have a suspected source of infection? No. Patient's initial sepsis screen is negative. Risk Assessment: Do you want to hurt yourself or someone else? Patient reports no desire to harm self or others. Onset of symptoms was March 01, 2021. 17:11 Method Of Arrival: Wheelchair kg 17:11 Acuity: ALEJANDRA 3 kg Triage Assessment: 17:15 General: Appears uncomfortable, Behavior is calm, cooperative, appropriate for age, kg quiet. Pain: Complains of pain in Generalized. GI: Reports intolerance of fluids, intolerance of food, nausea. Historical: - Allergies: 17:15 PENICILLINS; kg - Home Meds: 17:15 Metformin Oral [Active]; aspirin 81 mg Oral chew 1 tab once daily [Active]; kg - PMHx: 17:15 Cellulitis; Diabetes - NIDDM; Hypertension; kg - PSHx: 17:15 Left AKA; kg - Immunization history:: Adult Immunizations not immunized, Client reports having NOT received the Covid vaccine. - Social history:: Smoking status: Patient denies any tobacco usage or history of. Screenin:16 Abuse screen: Denies threats or abuse. Denies injuries from another. Nutritional kg screening: No deficits noted. Tuberculosis screening: No symptoms or risk factors identified. Fall Risk None identified. Assessment: 19:00 General: Appears uncomfortable, Behavior is cooperative, fussy. Pain: Complains of pain zb in generalized. Neuro: Level of Consciousness is awake, alert, obeys commands. Cardiovascular: Capillary refill < 3 seconds Rhythm is sinus rhythm. Respiratory: Airway is patent Respiratory effort is even, unlabored, Respiratory pattern is regular, symmetrical. GI: Abdomen is flat, Bowel sounds present X 4 quads. Reports nausea, vomiting. : No deficits noted. Derm: Skin is intact, is healthy with good turgor. 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 22:49 Reassessment: patient asking to leave AMA. patient no longer wants to stay in the [facility]. XIMENA Calixto and XIMENA Leonard notified. awaiting son for a ride. 22:50 Reassessment: patient signed AMA paperwork at this time. IV removed. patient son here ms4 to take patient home. no meds given at this time. patient stable. Vital Signs: 17:11 BP 99 / 61; Pulse 72; Resp 20; Temp 98.7; Pulse Ox 88% on R/A; Weight 58.97 kg (R); kg Height 5 ft. 2 in. (157.48 cm); Pain 10/10; 19:47 BP 141 / 69; Pulse 74; Resp 18; Pulse Ox 94% on R/A; Pain 0/10; zb 20:52 BP 136 / 76; Pulse 73; Resp 18; Pulse Ox 94% on R/A; ms4 17:11 Body Mass Index 23.78 (58.97 kg, 157.48 cm) kg ED Course: 15:42 Patient arrived in ED. as 15:42 Garo Us MD is Private Physician. as 16:07 Triage completed. kg 17:15 Arm band placed on left wrist. kg 17:16 Patient has correct armband on for positive identification. kg 17:16 No provider procedures requiring assistance completed. kg 17:26 Patient placed in an exam room, on a stretcher. ll1 17:27 Durga Manning PA is PHCP. [facility] 17:27 Gold Sorto MD is Attending Physician. jmm 17:52 Chest Single View In Process Unspecified. EDMS 18:16 Inserted saline lock: 20 gauge in left antecubital area, using aseptic technique. Blood dh4 collected. 18:29 Alejandra Prater, COURTNEY is Primary Nurse. zb 20:51 Garo Us MD is Hospitalizing Provider. jmm 22:52 IV discontinued, intact, bleeding controlled. ms4 Administered Medications: 18:46 Drug: NS 0.9% 500 ml Route: IV; Rate: bolus; Site: left antecubital; zb 18:48 Drug: Zofran (Ondansetron) 4 mg Route: IVP; Site: left antecubital; zb 19:52 Follow up: Response: No adverse reaction zb 18:50 Not Given (Patient Refused): Tylenol 650 mg PO once zb Outcome: 20:52 Decision to Hospitalize by Provider. jmm 22:52 Discharged to home ambulatory. ms4 22:52 Condition: stable 22:52 Discharge instructions given to patient, Instructed on discharge instructions, follow up and referral plans. Demonstrated understanding of instructions. 23:00 Patient left the ED. em Signatures: Dispatcher [employer] EDMS Durga Manning PA PA [facility] Milton Hall, RN RN em Jessica López Donald 4 Bairon Rivera, COURTNEY RN ll1 Alejandra Prater, COURTNEY RN zLakesha Bonilla RN RN kg Breonna Clarke RN RN ms4 Corrections: (The following items were deleted from the chart) 16:08 16:03 Chief complaint: Patient states: Vomiting since 02/28 unable to keep anything down kg and sent over by the doctor. Pt was diagnosed COVID + 02/23. kg 16:08 16:03 Coronavirus screen: Client denies travel out of the [place] in the last 14 days. At this time, unable to obtain information related to travel outside the [place] Client presents with at least one sign or symptom that may indicate coronavirus-19. Standard/surgical mask placed on the client. Provider contacted for isolation considerations. Client reports previous positive COVID test result. Date of collection: February 23, 2021 kg 16:08 16:03 Ebola Screen: Patient negative for fever greater than or equal to 101.5 degrees kg Fahrenheit, and additional compatible Ebola Virus Disease symptoms Patient denies exposure to infectious person. Patient denies travel to an Ebola-affected area in the 21 days before illness onset. kg 16: 16:03 Initial Sepsis Screen: Does the patient meet any 2 criteria? No. Patient's kg initial sepsis screen is negative. Does the patient have a suspected source of infection? No. Patient's initial sepsis screen is negative. kg 16:08 16:03 Risk Assessment: Do you want to hurt yourself or someone else? Patient reports no kg desire to harm self or others. kg 16: 16:03 Onset of symptoms was February 28, 2021 kg kg 16: 16:03 Method Of Arrival: Ambulatory kg kg 16: 16:03 BP 144 / 93; Pulse 88bpm; Resp 20bpm; Pulse Ox 96% RA; Temp 98.1F Oral; 94.35 kg kg Reported; Height 5 ft. 9 in. Reported; BMI: 30.7; Pain 6/10; kg 16:08 16:03 Acuity: ALEJANDRA 4 kg kg
--- NOTE | 2021-03-04 20:53 | EDPHYS ---
Physician Documentation [facility] Name: Amaury Matamoros Age: 70 yrs Sex: Male : 1950 Arrival Date: 03/04/2021 Time: 15:42 Bed 13 Private MD: Garo Us ED Physician Gold Sorto HPI: 03/04 20:38 This 70 yrs old Male presents to ER via Wheelchair with complaints of jmm Decreased Appetite, Vomiting. 20:38 The patient presents to the emergency department with nausea, vomiting. Onset: The jmm symptoms/episode began/occurred gradually, 3 day(s) ago. Possible causes: sick contacts. The symptoms are aggravated by nothing. The symptoms are alleviated by nothing. Associated signs and symptoms: Pertinent positives: abdominal pain. This is a 70-year-old male with history of diabetes mellitus, hypertension the presents emergency department with complaints of ongoing shortness of breath, vomiting. This has been ongoing for approximately 3 days now. Patient is concerned he may have coronavirus. Patient states he had a positive exposure.. Historical: - Allergies: 17:15 PENICILLINS; kg - Home Meds: 17:15 Metformin Oral [Active]; aspirin 81 mg Oral chew 1 tab once daily [Active]; kg - PMHx: 17:15 Cellulitis; Diabetes - NIDDM; Hypertension; kg - PSHx: 17:15 Left AKA; kg - Immunization history:: Adult Immunizations not immunized, Client reports having NOT received the Covid vaccine. - Social history:: Smoking status: Patient denies any tobacco usage or history of. ROS: 20:38 Constitutional: Negative for fever, chills, and weight loss, Cardiovascular: Negative jmm for chest pain, palpitations, and edema. 20:38 Respiratory: Positive for shortness of breath. 20:38 Abdomen/GI: Positive for vomiting. 20:38 All other systems are negative. Exam: 20:38 Constitutional: This is a well developed, well nourished patient who is awake, alert, jmm and in no acute distress. Head/Face: atraumatic. Eyes: EOMI, no conjunctival erythema appreciated ENT: Moist Mucus Membranes Neck: Trachea midline, Supple Chest/axilla: Normal chest wall appearance and motion. Cardiovascular: Regular rate and rhythm. No edema appreciated Respiratory: Normal respirations, no respiratory distress appreciated Abdomen/GI: Non distended, soft Back: Normal ROM Skin: General appearance color normal MS/ Extremity: Moves all extremities, no obvious deformities appreciated, no edema noted to the lower extremities Neuro: Awake and alert, normal gait Psych: Behavior is normal, Mood is normal, Patient is cooperative and pleasant Vital Signs: 17:11 BP 99 / 61; Pulse 72; Resp 20; Temp 98.7; Pulse Ox 88% on R/A; Weight 58.97 kg (R); kg Height 5 ft. 2 in. (157.48 cm); Pain 10/10; 19:47 BP 141 / 69; Pulse 74; Resp 18; Pulse Ox 94% on R/A; Pain 0/10; zb 20:52 BP 136 / 76; Pulse 73; Resp 18; Pulse Ox 94% on R/A; ms4 17:11 Body Mass Index 23.78 (58.97 kg, 157.48 cm) kg MDM: 17:33 Patient medically screened. [facility] 20:51 Data reviewed: vital signs, nurses notes. Counseling: I had a detailed discussion with pavithra the patient and/or guardian regarding: the historical points, exam findings, and any diagnostic results supporting the discharge/admit diagnosis, lab results, radiology results, the need for further work-up and treatment in the hospital. ED course: I discussed the patient with Dr. Us whom accepted the patient for admission. . 03/04 17:46 Order name: Basic Metabolic Panel; Complete Time: 18:45 [facility] 03/04 17:46 Order name: CBC with Diff; Complete Time: 18:49 [facility] 03/04 17:46 Order name: LFT's; Complete Time: 18:45 [facility] 03/04 17:46 Order name: Magnesium; Complete Time: 18:45 [facility] 03/04 17:46 Order name: NT PRO-BNP; Complete Time: 18:45 [facility] 03/04 17:46 Order name: PT-INR; Complete Time: 18:42 [facility] 03/04 17:46 Order name: Troponin (emerg Dept Use Only); Complete Time: 18:45 [facility] 03/04 20:18 Order name: SARS-COV-2 RT PCR; Complete Time: 20:18 [facility] 03/04 20:56 Order name: Basic Metabolic Panel [facility] 03/04 20:56 Order name: Basic Metabolic Panel [facility] 03/04 20:56 Order name: CBC with Automated Diff [facility] 03/04 20:56 Order name: CBC with Automated Diff [facility] 03/04 17:46 Order name: EKG; Complete Time: 17:47 [facility] 03/04 17:46 Order name: Cardiac monitoring; Complete Time: 19:00 [facility] 03/04 17:46 Order name: EKG - Nurse/Tech; Complete Time: 19:00 [facility] 03/04 17:46 Order name: IV Saline Lock; Complete Time: 18:17 [facility] 03/04 17:46 Order name: Labs collected and sent; Complete Time: 18:16 [facility] 03/04 17:46 Order name: O2 Per Protocol; Complete Time: 18:16 [facility] 03/04 17:46 Order name: O2 Sat Monitoring; Complete Time: 18:16 [facility] 03/04 17:52 Order name: Chest Single View; Complete Time: 18:24 [facility] 03/04 20:56 Order name: Clear Liquid [facility] Administered Medications: 18:46 Drug: NS 0.9% 500 ml Route: IV; Rate: bolus; Site: left antecubital; zb 18:48 Drug: Zofran (Ondansetron) 4 mg Route: IVP; Site: left antecubital; zb 19:52 Follow up: Response: No adverse reaction zb 18:50 Not Given (Patient Refused): Tylenol 650 mg PO once zb Disposition Summary: 03/04/21 20:52 Hospitalization Ordered Hospitalization Status: Observation [facility] Provider: Garo Us Location: Telemetry/MedSurg (observation) [facility] Condition: Stable [facility] Problem: new [facility] Symptoms: are unchanged [facility] Bed/Room Type: Standard [facility] Room Assignment: [facility] Diagnosis - Vomiting m - Acute Kidney Injury jm - Coronavirus [facility] Forms: - Medication Reconciliation Form [facility] - SBAR form [facility] Addendum: 03/06/2021 09:09 Co-signature as Attending Physician, Gold Sorto MD I agree with the assessment and k dr plan of care. Signatures: Dispatcher [employer] EDSC Gold Sorto MD MD kdr Mickail, Joel, PA PA jmm Brown, Zipporah, RN RN Lakesha Sotelo RN RN kg Corrections: (The following items were deleted from the chart) 03/04 17:52 17:18 Chest Pa And Lat (2 Views)+RAD.RAD.BRZ ordered. EDMS EDMS :18 17:18 CORONAVIRUS+MR.LAB.BRZ ordered. EDMS EDMS
[2021-03-04] MEDS ORDERED: ACETAMINOPHEN 500 MG TAB PO PRN (20:55)
[2021-03-04] MEDS ORDERED: ONDANSETRON 4 MG/2 ML VIAL IV PRN (20:55)
[2021-03-04] MEDS ORDERED: NA CHLORIDE 0.9% 1,000 ML IV SCH (21:00)
[2021-03-04 23:07] VITALS: TEMP 98.7
[2021-03-04 23:09] VITALS: O2SAT 94
[2021-03-04 23:10] VITALS: BP 136/76
== END 2021-03-04 23:00 | disposition home or self-care (01) ==
LOC: ER 15:39 → ERHOLD 20:54
PROVIDERS: ADMIT Internal Medicine; ATTEND Internal Medicine
DX: U07.1 COVID-19 (principal); N17.9 Acute kidney failure, unspecified; Z53.29 Procedure and treatment not carried out because of patient's decision for other reasons; E11.9 Type 2 diabetes mellitus without complications; I10 Essential (primary) hypertension; Z79.82 Long term (current) use of aspirin; Z79.899 Other long term (current) drug therapy; Z88.0 Allergy status to penicillin; Z89.612 Acquired absence of left leg above knee
CPT/HCPCS: 93005 ×2; 85025; 80048; 36415; 83735; 85610; 80076; 84484; 83880; 71045; 96374; 99284; U0003; J7030; J2405; G0378 ×2

== ENCOUNTER 2021-03-10 16:58 | Inpatient (IN) | payer OTHER ==
--- OUTSIDE RECORDS SUMMARY | 2021-03-10 17:07 | XMS REPORT | Continuity of Care Document ---
:1950 Author Organization [facility] t Address [address] [place] [address] Care Team Providers Name Role Phone Laney MAXWELL BRhys Attending Clinician Renetta MAXWELL, Niranjan Attending Clinician Narda MAXWELL, Eric Attending Clinician Vandana MAXWELL, Jose Attending Clinician Lynda ESPINOZA Admitting Clinician Unavailable Payers Payer Name Policy Type Policy Effective Date Expiration Date Sour ce Number [employer] MEDICARE [id number] [facility] MGD CAREWELLCARE 00:00:00 - Medica l [id number] Center 21-Present Problems Condition Condition Condition Status [...] Date Date Clinician Penicill Drug Active Rash [facility] ins Allergy 5-31 [facility] - 00:00: Medical 00 Center Penicill Adverse Active Info Not [facility] t amine Reaction Available [facility] Social History Social Habit Start Date Stop Date Quantity Comments Source Sex Assigned At [facility] Alcohol intake 2020-10-04 2020-10-04 Current drinker [facility] Elvis hewitt [facility] - 00:00:00 00:00:00 of [facility] (finding) Tobacco use and 2020-10-04 2020-10-04 Never used [facility] exposure 00:00:00 00:00:00 [facility] Smoking Status Start Date Stop Date Source Current every day smoker 2020-10-04 00:00:00 [facility] Medications Ordered Filled Start Stop Current [...] :00 total) by Center mouth daily. pantoprazol 2021-0 Yes 40mg Q.5D Take [address] [facility] [facility] 3-21 tablet (40 [facility] - (PROTONIX) 00:00: mg total) Me dical 40 MG 00 by mouth 2 Center tablet (two) times daily. pantoprazol 2021-0 Yes 40mg Q.5D Take [address] [facility] 3-21 tablet (40 [facility] - (PROTONIX) 00:00: mg total) Me dical 40 MG 00 by mouth 2 Center tablet (two) times daily. pantoprazol 2021-0 Yes 40mg Q.5D Take [address] [facility] 3-21 tablet (40 [facility] - (PROTONIX) 00:00: mg total) Me dical 40 MG 00 by mouth 2 Center tablet (two) times daily. pantoprazol 2021-0 Yes 40mg Q.5D Take [address] [facility] 3-21 tablet (40 [facility] - (PROTONIX) 00:00: mg total) Me dical 40 MG 00 by mouth 2 Center tablet (two) times daily. acetaminoph 2021- No 650mg Take [address] [facility] 3-21 03-16 tablets [facility] - (TYLENOL) 00:00: 23:59 (650 mg Medi marisel 325 MG 00 :00 total) by Center tablet mouth every 6 (six) hours as needed for up to 360 days. acetaminoph 2021- No 650mg Take [address] [facility] 3-21 03-16 tablets [facility] - (TYLENOL) 00:00: 23:59 (650 mg Medi marisel 325 MG 00 :00 total) by Center tablet mouth every 6 (six) hours as needed for up to 360 days. acetaminoph 2020-2021- No 650mg Take [address] [facility] 3-21 03-16 tablets [facility] - (TYLENOL) 00:00: 23:59 (650 mg Medi marisel 325 MG 00 :00 total) by Center tablet mouth every 6 (six) hours as needed for up to 360 days. acetaminoph 2020-2021- No 650mg Take [address] en 3-21 03-16 tablets [facility] - (TYLENOL) 00:00: 23:59 (650 [...] Yes Alfonzo [address] Mera [facility] ent Clinics Hydrochloro Hydrochloro Yes Alfonzo [address] thiazide thiazide Mera in the Luke s - morning [facility] Clinics Pantoprazol Pantoprazol Yes Alfonzo [address] e Sodium e Sodium Mera [facility] ent Clinics Metoprolol Metoprolol Yes Alfonzo [address] Tartrate Tartrate Mera with food L es - [facility] Ferrous Ferrous Yes Alfonzo [address] Sulfate Sulfate Mera [facility] Clinics Amlodipine Amlodipine Yes Alfonzo [address] Besylate Besylate Mera [facility]ics Gabapentin Gabapentin Yes Alfonzo [address] Mera [facility]ics Metformin Metformin Yes Alfonzo [address] HCl HCl Mera with a [facility] - meal [facility] ent Clinics Vital Signs Vital Name Observation Time Observation Value Comments Source Systolic blood 2020-10-03 19:17:00 111 mm[Hg] [facility] Diastolic blood 2020-10-03 19:17:00 61 mm[Hg] [facility] Heart rate 2020-10-03 19:17:00 75 /min [facility] Body temperature 2020-10-03 19:17:00 36.94 Latesha [facility] Respiratory rate 2020-10-03 19:17:00 17 /min [facility] Oxygen saturation in 2020-10-03 19:17:00 98 /min [facility] - Arterial blood by Medical Ce [...] HEPATITIS B PCR, 2020-10-03 15:49:00 Sarkis Laboy [facility] HEPATITIS C PCR, 2020-10-03 15:49:00 Sarkis Laboy [facility] POCT-GLUCOSE METER 2020-10-03 11:48:00 Alice Jackson [facility] POCT-GLUCOSE METER 2020-10-03 08:34:00 Alice aJckson [facility] CBC W/PLT COUNT & AUTO 2020-10-03 04:35:00 Nate [facility] CBC (HEMOGRAM ONLY) 2020-10-03 04:35:00 Delmi Peguero [facility] BASIC METABOLIC PANEL (7) 2020-10-03 04:35:00 Delmi Peguero [facility] ACTIN (SMOOTH MUSCLE) 2020-10-03 04:35:[address] [facility] [facility] ANTIBODY, IGG [facility] ALPHA FETOPROTEIN (AFP), 2020-10-03 04:35:[address] TUMOR MARKER [facility] [id number]\\, 2020-10-03 04:35:[address] [address] [facility] SERUM [facility] ANTI-NUCLEAR ANTIBODY 2020-10-03 04:35:00 [facility] - (GAMAL) [facility] BILIRUBIN, DIRECT 2020-10-03 04:35:00 [facility] CER[facility] 2020-10-03 04:35:00 [facility]TIB[facility], IGG 2020-10-03 04:35:00 [facility]IS B SURFACE 2020-10-03 04:35:00 [facility] ANTIBODY [facility] HEPATITIS B SURFACE 2020-10-03 04:35:00 [facility] ANTIGEN [facility] HEPATITIS B CORE 2020-10-03 04:35:[address] [address] [facility] - ANTIBODY, TOTAL [facility] HEPATITIS C ANTIBODY 2020-10-03 04:35:00 [facility] MITOCHONDRIA M2 ANTIBODY 2020-10-03 04:35:00 [facility] ([facility] PROTHROMBIN TIME/INR 2020-10-03 04:35:00 [facility] POCT-GLUCOSE METER 2020-10-02 21:19:00 Alice Jackson [facility] CBC W/PLT COUNT & AUTO 2020-10-02 17:29:00 [facility] VANCOMYCIN LEVEL, TROUGH 2020-10-02 17:29:00 Severo Martinez [facility] POCT-GLUCOSE METER 2020-10-02 17:24:00 [facility] PO[facility]SE METER 2020-10-02 11:21:00 Renetta [facility] POCT-GLUCOSE METER 2020-10-02 08:03:00 [facility] W/[facility]T COUNT & AUTO 2020-10-02 03:39:00 [facility] COMPREHENSIVE METABOLIC 2020-10-02 03:39:00 Marielena [facility] POCT-GLUCOSE METER 2020-10-01 21:23:00 Renetta [facility] HEMOGLOBIN A1C 2020-10-01 14:34:00 Marielena [facility] CBC W/PLT COUNT & AUTO 2020-10-01 12:08:00 Adrienne Ortiz [facility] POCT-GLUCOSE METER 2020-10-01 10:58:00 [facility] REPORT OF PROCEDURE - 2020-10-01 10:35:58 Sarkis Laboy [facility] - ENDOSCOPY [facility] VANCOMYCIN LEVEL, RANDOM 2020-10-01 10:06:00 Meghann Grier [facility] TISSUE EXAM 2020-10-01 09:43:00 Sarkis Laboy [facility] UPPER ENDOSCOPY,BIOPSY 2020-10-01 09:14:00 Sarkis [facility] POCT-GLUCOSE METER 2020-10-01 08:23:00 Alice Jackson [facility] POCT-GLUCOSE METER 2020-10-01 05:11:00 Alice Jackson [facility] VITAMIN B12 AND FOLATE 2020-10-01 04:42:00 Ford Espinoza [facility] IRON, TIBC, % SAT. 2020-10-01 04:42:00 Ford Espinoza [facility] (WITHOUT FERRITIN) [facility] 2020-10-01 04:42:00 Ford Espinoza [facility] SARS-COV2/RT-PCR ([facility] & 2020-10-01 02:44:00 Nate Fields [facility] - REF LABS) [facility] COMPREHENSIVE METABOLIC 2020-10-01 02:44:00 Nate Fields [facility] CBC W/PLT COUNT & AUTO 2020-10-01 02:44:00 Adrienne Ortiz [facility] DIFFERENTIAL [facility] CBC W/PLT COUNT & AUTO 2020-09-30 20:01:00 [facility] POCT-GLUCOSE METER 2020-09-30 20:00:00 Alexis Jacksonurad [facility] CBC (HEMOGRAM ONLY) 2020-09-30 15:15:00 Nate Fields [facility] POCT-GLUCOSE METER 2020-09-30 14:20:00 Alice Jackson [facility] US ABDOMEN LIMITED 2020-09-30 11:32:00 Ford Espinoza [facility] BLOOD CULTURE 2020-09-30 09:45:00 Planejose angel [facility] BLOOD CULTURE 2020-09-30 09:22:00 Planejose angel [facility] CBC W/PLT COUNT & AUTO 2020-09-30 09:22:[address] [facility] LACTIC ACID, VENOUS 2020-09-30 09:22:00 Planerichard [facility] URINALYSIS W/ REFLEX 2020-09-30 09:22:00 Arnaldo Gomez [facility] - URINE CULTURE [facility] XR CHEST 1 VIEW PORTABLE 2020-09-30 08:39:00 Adrienne Ortiz [facility] I [facility] - / BEDSIDE [facility] HEMOGLOBIN A1C 2020-09-30 06:52:00 Malcolm Hernandez [facility] POCT-GLUCOSE METER 2020-09-30 06:27:00 Ford Espinoza [facility] PROTHROMBIN TIME/INR 2020-09-30 06:22:00 Malcolm Hernandez CH, I [facility] APTT 2020-09-30 06:22:00 Malcolm Hernandez [facility] COMPREHENSIVE METABOLIC 2020-09-30 06:22:00 Malcolm Hernandez [facility] REPORT OF PROCEDURE - 2020-09-30 00:00:00 ProviderSherwin [facility] ENDOSCOPY SCAN Scanning [facility] Plan of Care Planned Activity Planned [...] Medica l Center colon (procedure) [code = 585906625] Future Scheduled [address] [facility] Test 00:00:00 malignant neoplasm of Medica l Center colon (procedure) [code = 052999818] Future Scheduled [address] [facility] - Test 00:00:00 malignant neoplasm of Medica l Center colon (procedure) [code = 274332170] Future Scheduled [address] - Test 00:00:00 malignant neoplasm of Medica l Center colon (procedure) [code = 588287172] Encounters Start End Encounter Admission Attending Care Care Encounter Source Date/Time Date/Time Type Type Clinicians Facility Department ID 2021-02-24 2021-02-24 Outpatient [facility] [id number] 2021-02-17 2021-02-17 Outpatient [facility] [id number] [facility] 2021-02-10 2021-02-10 Outpatient [facility] [id number] [facility] 2020-09-30 2020-10-03 [facility] EspinozaFord [facility] [id number] [facility] 20:23:00 Encounter Alice Jacksonsein [facility] 2020-10-01 2020-10-01 Surgery Laboy, [facility] [id number] 09:05:00 10:17:00 Sarkis [facility] 2020-10-01 2020-10-01 Anesthesia Vandana, [facility] [id number] 09:24:00 10:04:00 Event Uri Garcia [facility] 2020-09-30 2020-09-30 Travel [facility] [id number] [facility]00 [facility] 2020-06-24 2020-06-24 Outpatient [facility] [id number] [facility] 2020-06-03 2020-06-03 Outpatient [facility] [id number] [facility] 2020-05-25 2020-05-25 Outpatient [facility] [id number] [facility] 2020-05-13 2020-05-13 Outpatient [facility] [id number] [facility] 2020-04-29 2020-04-29 Outpatient [facility] [id number] [facility] 2020-04-15 2020-04-15 Outpatient [facility] [id number] [facility] 2020-04-15 2020-04-15 Outpatient [facility] [id number] [facility] 2020-04-07 2020-04-07 Outpatient [facility] [id number] [facility] 2020-03-26 2020-03-26 [facility] [id number] 09:10[facility]00 09:10:00 [facility] [place] [facility] Clinics 2019-09-21 2019-09-21 [facility] [id number] 21:47:00 21:47:00 [facility] Outpati ent Clinics 2019-09-19 2019-09-19 [facility] [id number] 13:30:00 13:30:00 [facility] Clin[facility] 2019-09-10 2019-09-10 [facility] [id number] 10:15:00 10:15:00 [facility] Outpati ent Clinics 2019-06-20 2019-06-20 [facility] [id number] 13:20:00 13:20:00 [facility] Outpati ent Clinics 2019-03-21 2019-03-21 [facility] [id number] 11:20:00 11:20:00 [facility] Results Test Description Test Time [...] patients withautoimmune hepatitis (AIH) type 1, approxi vngeau71% of patients with a utoimmune cholangitis,chitra roximately 30% of patients with p rimary biliarycirrhosi s, and approximately 2 % of healthy people.High giulia ues are closely correlated with AIH type 1. ELIANA (test code = Performing Lab ELIANA) EZ [email or web address] [facility] [address] [place] [address] Obdulia Ulrich MD, PhD, [facility] (Smooth Muscle) Antibody, [id number] 01:25:00 Test Item Value Reference Range Interpretation Comments Anti-Smooth <20 See Note: U Reference Range :<20 Muscle Ab NEGATIVE> O R = 20 (test code = POSITIVE Antibo dies [id number]) recognizing act in are the main compon [...] (test code Performing Lab = ELIANA) [email or web address] [email or web address] [facility] [address] [place] [address] Obdulia Ulrich MD, PhD, [facility] (Smooth Muscle) Antibody, [id number] 01:25:00 Test Item Value Reference Range Interpretation Comments Anti-Smooth <20 See Note: U Reference Range :<20 Muscle Ab NEGATIVE> O R = 20 (test code = POSITIVE Antibo dies 0777097) recognizing act in are the main compon [...] 1. ELIANA (test code Performing Lab = ELINAA) EZ [email or web address] [facility] [place] [address] [place] [address] Obdulia Ulrich MD, PhD, [facility] (Smooth Muscle) Antibody, [id number] 01:25:00 Test Item Value Reference Range Interpretation [...] (test code Performing Lab = ELIANA) [email or web address] [email or web address] [facility] [address] [place] [address] Obdulia Ulrich MD, PhD, MARINA [facility] 14:07:00 Test Item Value Reference Range Interpretation Comments Ceruloplasmin (test code 39 mg/dL 18-36 H = 9735228) ELIANA (test code = ELIANA) Performing Lab *GIULIA [email or web address] [facility], [address] [place] [address] Nereida Rocha MD Lab Interpretation (test Abnormal code = 49003-0) [facility] 14:07:00 Test Item Value Reference Range Interpretation Comments Ceruloplasmin (test code 39 mg/dL 18-36 H = 6658586) ELIANA (test code = ELIANA) Performing Lab *GIULIA [email or web address] [facility], [address] [place] [phone] Nereida Rocha MD Lab Interpretation (test Abnormal code = 62665-6) [facility] Hospital[facility]eruloplasmin2021-03-24 14:07:00 Test Item Value Reference Range Interpretation Comments Ceruloplasmin (test code 39 mg/dL 18-36 H = 3327203) ELIANA (test code = ELIANA) Performing Lab *GIULIA [email or web address] [facility], [address] [place], [place] [address] Nereida Rocha MD Lab Interpretation (test Abnormal code = 76185-1) [facility] 14:07:00 Test Item Value Reference Range Interpretation Comments Ceruloplasmin (test code 39 mg/dL 18-36 H = 5384826) ELIANA (test code = ELIANA) Performing Lab *GIULIA [facility] [address] [place] [address] Nereida Rocha MD Lab Interpretation (test Abnormal code = 32330-3) [facility] HospitalMitochondria M2 Antibody (IgG)2020-10-06 13:29:00 Test Item Value Reference Range Interpretation Comments Mitochondria M2 Ab 20.3 U See Note: H Reference (test code = 9477069) Range: NEGATIVE: < OR = 20.0EQUIVOCAL: 20.1-24.9POSITI VE: > OR = 25.0 ELIANA (test code = ELIANA) Performing Lab EZ [facility] [address] [place] [address] Obdulia Ulrich MD, PhD, MARINA Lab Interpretation Abnormal (test code = 29625-0) [facility] Hospital[facility] M2 Antibody (IgG)2020-10-06 13:29:00 Test Item Value Reference Range Interpretation Comments Mitochondria M2 Ab 20.3 U See Note: H Reference (test code = 8085612) Range: NEGATIVE: < OR = 20.0EQUIVOCAL: 20.1-24.9POSITI VE: > OR = 25.0 ELIANA (test code = ELIANA) Performing Lab EZ [facility] [employer] [address] [address] Obdulia Ulrich MD, PhD, MARINA Lab Interpretation Abnormal (test code = 58147-5) [facility] Hospital[facility] M2 Antibody (IgG)2020-10-06 13:29:00 Test Item Value Reference Range Interpretation Comments Mitochondria M2 Ab 20.3 U See Note: H Reference (test code = 1642504) Range: NEGATIVE: < OR = 20.0EQUIVOCAL: 20.1-24.9POSITI VE: > OR = 25.0 ELIANA (test code = ELIANA) Performing Lab EZ [facility] [employer] [place] [address] [place] [address] Obdulia Ulrich MD, PhD, MARINA Lab Interpretation Abnormal (test code = 09890-7) [facility] Hospital[facility] M2 Antibody (IgG)2020-10-06 13:29:00 Test Item Value Reference Range Interpretation Comments Mitochondria M2 Ab 20.3 U See Note: H Reference (test code = 9983400) Range: NEGATIVE: < OR = 20.0EQUIVOCAL: 20.1-24.9POSITI VE: > OR = 25.0 ELIANA (test code = ELIANA) Performing Lab EZ [facility] [address] [place] [address] Obdulia Ulrich MD, PhD, MARINA Lab Interpretation Abnormal (test code = 72027-8) [facility] ([facility]ipuncture) 2020-10-05 14:00:00 Test Item Value Reference Range Interpretation Comments Result (test code = No growth in 5 days 6463-4) [facility] Culture - Routine (Left Venipuncture) 2020-10-05 14:00:00 Test Item Value Reference Range Interpretation Comments Result (test code = No growth in 5 days 6463-4) [facility] Culture - Routine (Left Venipuncture) 2020-10-05 14:00:00 Test Item Value Reference Range Interpretation Comments Result (test code = No growth in 5 days 6463-4) [facility] Culture - Routine (Left Venipuncture) 2020-10-05 14:00:00 Test Item Value Reference Range Interpretation Comments Result (test code = No growth in 5 days 6463-4) [facility] [id number] 14:00:00 Test Item Value Reference Range Interpretation Comments CULTURE (BEAKER) (test No growth in 5 days code = 1095) BLOOD [id number] 11:00:00 Test Item Value Reference Range Interpretation Comments CULTURE (BEAKER) (test No growth in 5 days code = 1095) Hepatitis B PCR, [id number] 20:15:00 Test Item Value Reference Range Interpretation Comments HBV PCR, Quantitative HBV DNA not detected HBV DNA not (test code = 53652-3) detected ELIANA (test code = ELIANA) This test uses a Real-Time Polymerase Chain Reaction (RT-PCR) methodology and was performed using MADONNA AmpliPrep/MADONNA TaqMan HBV Test, v2.0 ([employer] Reportable range for this assay is 20 - 170,000,000 IU per mL (1.30 - 8.23 Log IU/mL). Lab Interpretation Normal (test code = 16980-0) [facility] HospitalHe[facility] centertis B PCR, [id number] 20:15:00 Test Item Value Reference Range Interpretation Comments HBV PCR, Quantitative HBV DNA not detected HBV DNA not (test code = 10522-0) detected ELIANA (test code = ELIANA) This test uses a Real-Time Polymerase Chain Reaction (RT-PCR) methodology and was performed using [employer] AmpliPrep/MADONNA TaqMan HBV Test, v2.0 ([employer] Reportable range for this assay is 20 - 170,000,000 IU per mL (1.30 - 8.23 Log IU/mL). Lab Interpretation Normal (test code = 81364-6) [facility] B PCR, [id number] 20:15:00 Test Item Value Reference Range Interpretation Comments HBV PCR, Quantitative HBV DNA not detected HBV DNA not (test code = 96187-4) detected ELIANA (test code = ELIANA) This test uses a Real-Time Polymerase Chain Reaction (RT-PCR) methodology and was performed using [employer] AmpliPrep/M[employer]NA TaqMan HBV Test, v2.0 ([employer] Reportable range for this assay is 20 - 170,000,000 IU per mL (1.30 - 8.23 Log IU/mL). Lab Interpretation Normal (test code = 52258-8) [facility] B PCR, [id number] 20:15:00 Test Item Value Reference Range Interpretation Comments HBV PCR, Quantitative HBV DNA not detected HBV DNA not (test code = 78034-6) detected ELIANA (test code = ELIANA) This test uses a Real-Time Polymerase Chain Reaction (RT-PCR) methodology and was performed using [employer] AmpliPrep/MAD[employer]NA TaqMan HBV Test, v2.0 ([employer] Reportable range for this assay is 20 - 170,000,000 IU per mL (1.30 - 8.23 Log IU/mL). Lab Interpretation Normal (test code = 02716-1) [facility] HospitalHECR[facility]END[facility]IS B PCR, [id number] 20:15:00 Test Item Value Reference Range Interpretation Comments HBV RESULT COMPONENT HBV DNA not detected HBV DNA not detected (BEAKER) (test code = 2701) This test uses a Real-Time Polymerase Chain Reaction (RT-PCR) methodology and was performed using [employer] AmpliPrep/MADONNA TaqMan HBV Test, v2.0 ([employer]Reportable range for this assay is 20 - 170,000,000 IU per mL (1.30 - 8.23 Log IU/mL).Hepatitis C PCR, [id number] 19:56:00 Test Item Value Reference Range Interpretation Comments HCV PCR, Quantitative [id number] See_Comment H [Auto mated (test code = 22710-5) messag e] The system which generated this result transmitted reference range : <15 IU/mL. The reference range was not used to interpret this result as normal/abnormal . ELIANA (test code = ELIANA) This test uses a Real-Time Polymerase Chain Reaction (RT-PCR) methodology and was performed using [employer] Ampliprep/MADONNA TaqMan HCV test kit version 2.0 ([employer] Reportable range for this assay is 15 - 100,000,000 IU per mL (1.18 - 8.00 Log IU/mL). Lab Interpretation Abnormal (test code = 48780-4) [facility] C PCR, [id number] 19:56:00 Test Item Value Reference Range Interpretation Comments HCV PCR, Quantitative 694180 See_Comment H [Auto mated (test code = 45089-7) messag e] The system which generated this result transmitted reference range : <15 IU/mL. The reference range was not used to interpret this result as normal/abnormal . ELIANA (test code = ELIANA) This test uses a Real-Time Polymerase Chain Reaction (RT-PCR) methodology and was performed using MADONNA Ampliprep/MADONNA TaqMan HCV test kit version 2.0 ([employer] Reportable range for this assay is 15 - 100,000,000 IU per mL (1.18 - 8.00 Log IU/mL). Lab Interpretation Abnormal (test code = 88188-9) [facility], [id number] 19:56:00 Test Item Value Reference Range Interpretation Comments HCV PCR, Quantitative 181755 See_Comment H [Auto mated (test code = 30182-5) messag e] The system which generated this result transmitted reference range : <15 IU/mL. The reference range was not used to interpret this result as normal/abnormal . ELIANA (test code = ELIANA) This test uses a Real-Time Polymerase Chain Reaction (RT-PCR) methodology and was performed using MADONNA Ampliprep/MADONNA TaqMan HCV test kit version 2.0 ([employer]). Reportable range for this assay is 15 - 100,000,000 IU per mL (1.18 - 8.00 Log IU/mL). Lab Interpretation Abnormal (test code = 81524-3) [facility] C PCR, [id number] 19:56:00 Test Item Value Reference Range Interpretation Comments HCV PCR, Quantitative 270233 See_Comment H [Auto mated (test code = 35165-6) messag e] The system which generated this result transmitted reference range : <15 IU/mL. The reference range was not used to interpret this result as normal/abnormal . ELIANA (test code = ELIANA) This test uses a Real-Time Polymerase Chain Reaction (RT-PCR) methodology and was performed using MADONNA Ampliprep/MADONNA TaqMan HCV test kit version 2.0 ([employer]). Reportable range for this assay is 15 - 100,000,000 IU per mL (1.18 - 8.00 Log IU/mL). Lab Interpretation Abnormal (test code = 84428-8) [facility] C PCR, [id number] 19:56:00 Test Item Value Reference Range Interpretation Comments HCV NUMERIC RESULT (BEAKER) 118469 IU/mL <15 H (test code = 2700) This test uses a Real-Time Polymerase Chain Reaction (RT-PCR) methodology and was performed using MADONNA Ampliprep/MADONNA TaqMan HCV test kit version 2.0 ([employer]).Reportable range for this assay is 15 - 100,000,000 IU per mL (1.18 - 8.00 Log IU/mL).Anti-Nuclear Antibody (GAMAL) 2020-10-04 12:41:00 Test Item Value Reference Range Interpretation Comments GAMAL (test code = 16296-4) Negative Negative ELIANA (test code = ELIANA) Test performed by IFA method. Lab Interpretation (test Normal code = 19316-3) [facility]2020-10-04 12:41:00 Test Item Value Reference Range Interpretation Comments GAMAL (test code = 69747-6) Negative Negative ELIANA (test code = ELIANA) Test performed by IFA method. Lab Interpretation (test Normal code = 42165-9) [facility] (GAMAL)2020-10-04 12:41:00 Test Item Value Reference Range Interpretation Comments GAMAL (test code = 41170-0) Negative Negative ELIANA (test code = ELIANA) Test performed by IFA method. Lab Interpretation (test Normal code = 89851-6) [facility] (GAMAL)2020-10-04 12:41:00 Test Item Value Reference Range Interpretation Comments GAMAL (test code = 00100-5) Negative Negative ELIANA (test code = ELIANA) Test performed by IFA method. Lab Interpretation (test Normal code = 12622-9) [facility] HospitalANTI[facility]NUCLEAR ANTIBODY (GAMAL)2020-10-04 12:41:00 Test Item Value Reference Range Interpretation Comments ANTI-NUCLEAR ANTIBODY (GAMAL) (BEAKER) Negative Negative (test code = 418) Test performed by IFA method.POC-Glucose [id number] 18:23:00 Test Item Value Reference Range Interpretation Comments POC-Glucose Meter (test 127 mg/dL 70-110 H : TE STED AT [facility] code = 1538) [address] [place] [address], 770 30: Business Agent/Techni min ID = [id number] for Igbalajobi, She neto Lab Interpretation (test Abnormal code = 05061-1) [facility] HospitalP[facility]Glucose [id number] 18:23:00 Test Item Value Reference Range Interpretation Comments POC-Glucose Meter (test 127 mg/dL 70-110 H : TE STED AT [facility] code = 1538) [address] [facility], 770 30: Business Agent/Techni min ID = [id number] for Igbalajobi, She neto Lab Interpretation (test Abnormal code = 44198-9) [facility] HospitalP[facility]-Glucose [id number] 18:23:00 Test Item Value Reference Range Interpretation Comments POC-Glucose Meter (test 127 mg/dL 70-110 H : TE STED AT [facility] code = 1538) [address] [facility], 770 30: Business Agent/Techni min ID = [id number] for Katelynn Ramirez neto Lab Interpretation (test Abnormal code = 08960-6) [facility] HospitalPOC[facility]Glucose [id number] 18:23:00 Test Item Value Reference Range Interpretation Comments POC-Glucose Meter (test 127 mg/dL 70-110 H : TE STED AT [facility] code = 1538) [address] [facility], 770 30: Business Agent/Techni min ID = [id number] for IgKatelynn huertas neto Lab Interpretation (test Abnormal code = 47425-7) [facility] HospitalPOCT-GLUCOSE [id number] 18:23:00 Test Item Value Reference Range Interpretation Comments POC-GLUCOSE METER 127 mg/dL 70-110 H [facility] ([facility]ER[facility] (test code = [facility], 1538) [address]: Business Agent/Techni min ID = [id number] for Katelynn Ramirez neto POCT-GLUCOSE [id number] 12:00:00 Test Item Value Reference Range Interpretation Comments POC-GLUCOSE METER 78 mg/dL 70-110 : TESTED A T [facility] 6720 (BEAKER) (test code = [facility], 1538) [address]: Business Agent/Techni min ID = [id number] for Kassandra Woods Hepatitis B core antibody, [id number] 10:45:00 Test Item Value Reference Range Interpretation Comments Hep B Core Total Ab (test Reactive Nonreactive A code = 99572-6) ELIANA (test code = ELIANA) Business Agent ID - DBOperator ID - DBOperator ID - DB Lab Interpretation (test Abnormal code = 15133-8) [facility] Hospital[facility] core antibody, [id number] 10:45:00 Test Item Value Reference Range Interpretation Comments Hep B Core Total Ab (test Reactive Nonreactive A code = 89855-3) ELIANA (test code = ELIANA) Business Agent ID - DBOperator ID - DBOperator ID - DB Lab Interpretation (test Abnormal code = 48184-0) [facility] HospitalHe[facility] centertis B core antibody, [id number] 10:45:00 Test Item Value Reference Range Interpretation Comments Hep B Core Total Ab (test Reactive Nonreactive A code = 05679-9) ELIANA (test code = ELIANA) Business Agent ID - DBOperator ID - DBOperator ID - DB Lab Interpretation (test Abnormal code = 93102-4) [facility] HospitalHep[facility] B core antibody, [id number] 10:45:00 Test Item Value Reference Range Interpretation Comments Hep B Core Total Ab (test Reactive Nonreactive A code = 57747-5) ELIANA (test code = ELIANA) Business Agent ID - DBOperator ID - DBOperator ID - DB Lab Interpretation (test Abnormal code = 82161-5) [facility] B CORE ANTIBODY, [id number] 10:45:00 Test Item Value Reference Range Interpretation Comments HEPATITIS B CORE TOTAL ANTIBODY Reactive Nonreactive A (BEAKER) (test code = 497) Business Agent ID - DBOperator ID - DBOperator ID - DBPOCT-GLUCOSE [id number] 08:50:00 Test Item Value Reference Range Interpretation Comments POC-GLUCOSE METER 83 mg/dL 70-110 : TESTED A T [facility] 6720 (BEAKER) (test code = [place], 1538) [address]: Business Agent/Techni min ID = [id number] for Kassandra Woods Wyliu-4-ireosshcaad3062-03-21 08:30:00 Test Item Value Reference Range Interpretation Comments A-1 Antitrypsin (test 189.40 mg/dL 90-200 code = 1825-9) ELIANA (test code = ELIANA) Business Agent ID - DBOperator ID - DBOperator ID - DB Lab Interpretation (test Normal code = 01858-3) [facility] HospitalAlpha-1-[id number] 08:30:00 Test Item Value Reference Range Interpretation Comments A-1 Antitrypsin (test 189.40 mg/dL 90-200 code = 1825-9) ELIANA (test code = ELIANA) Business Agent ID - DBOperator ID - DBOperator ID - DB Lab Interpretation (test Normal code = 15542-5) [facility] HospitalAlpha-1-pdrgwjtotbe6926-98-99 08:30:00 Test Item Value Reference Range Interpretation Comments A-1 Antitrypsin (test 189.40 mg/dL 90-200 code = 1825-9) ELIANA (test code = ELIANA) Business Agent ID - DBOperator ID - DBOperator ID - DB Lab Interpretation (test Normal code = 90739-1) [facility] HospitalAlpha-1-bribeclaoyz1542-21-25 08:30:00 Test Item Value Reference Range Interpretation Comments A-1 Antitrypsin (test 189.40 mg/dL 90-200 code = 1825-9) ELIANA (test code = ELIANA) Business Agent ID - DBOperator ID - DBOperator ID - DB Lab Interpretation (test Normal code = 37902-0) [facility] HospitalALPHA-1-[id number] 08:30:00 Test Item Value Reference Range Interpretation Comments ALPHA-1 ANTITRYPSIN (BEAKER) 189.40 mg/dL 90.00-200.00 (test code = 502) Business Agent ID - DBOperator ID - DBOperator ID - DBHepatitis A antibody, IgG 2020-10-03 07:01:00 Test Item Value Reference Range Interpretation Comments Hep A IgG (test code = Reactive Nonreactive A 57196-6) ELIANA (test code = ELIANA) Business Agent ID - DB Lab Interpretation (test Abnormal code = 28590-2) [facility] HospitalHepatitis A antibody, [id number] 07:01:00 Test Item Value Reference Range Interpretation Comments Hep A IgG (test code = Reactive Nonreactive A 15826-9) ELIANA (test code = ELIANA) Business Agent ID - DB Lab Interpretation (test Abnormal code = 73553-5) [facility] HospitalHepatitis A antibody, [id number] 07:01:00 Test Item Value Reference Range Interpretation Comments Hep A IgG (test code = Reactive Nonreactive A 39762-5) ELIANA (test code = ELIANA) Business Agent ID - DB Lab Interpretation (test Abnormal code = 24229-4) [facility] HospitalHepatitis A antibody, [id number] 07:01:00 Test Item Value Reference Range Interpretation Comments Hep A IgG (test code = Reactive Nonreactive A 03709-2) ELIANA (test code = ELIANA) Business Agent ID - DB Lab Interpretation (test Abnormal code = 80601-0) [facility] A ANTIBODY, [id number] 07:01:00 Test Item Value Reference Range Interpretation Comments HEPATITIS A IGG ANTIBODY (BEAKER) Reactive Nonreactive A (test code = 2797) Business Agent ID - DBHepatitenn[facility] C [id number] 06:59:00 Test Item Value Reference Range Interpretation Comments Hepatitis C Ab (test code = Reactive Nonreactive A 27611-8) ELIANA (test code = ELIANA) Business Agent ID - DB Lab Interpretation (test Abnormal code = 39755-7) [facility] [id number] 06:59:00 Test Item Value Reference Range Interpretation Comments Hepatitis C Ab (test code = Reactive Nonreactive A 19048-1) ELIANA (test code = ELIANA) Business Agent ID - DB Lab Interpretation (test Abnormal code = 73090-2) [facility] C [id number] 06:59:00 Test Item Value Reference Range Interpretation Comments Hepatitis C Ab (test code = Reactive Nonreactive A 96739-6) ELIANA (test code = ELIANA) Business Agent ID - DB Lab Interpretation (test Abnormal code = 71936-8) [facility] C [id number] 06:59:00 Test Item Value Reference Range Interpretation Comments Hepatitis C Ab (test code = Reactive Nonreactive A 20032-1) ELIANA (test code = ELIANA) Business Agent ID - DB Lab Interpretation (test Abnormal code = 62143-8) [facility] C [id number] 06:59:00 Test Item Value Reference Range Interpretation Comments HEPATITIS C ANTIBODY (BEAKER) (test Reactive Nonreactive A code = 367) Business Agent ID - DBBasic Metabolic [id number] 06:38:00 Test Item Value Reference Range Interpretation [...] (test code = 7.8 mg/dL 8.4-10.2 L 24709-4) EGFR (test code = 39 mL/min/1.73 [place] [address]-4) NOT ACCURATE CREATININE CLEARANCE IN PREDICTING GLOMERULAR FILTRATION RATE . ESTIMATED GFR I S NOT APPLICABLE FOR DIALYSIS PATIENTS. ELIANA (test code = ELIANA) Business Agent ID - EDASI Lab Interpretation Abnormal (test code = 59088-6) [facility] HospitalBilirubin, [id number] 06:38:00 Test Item Value Reference Range Interpretation Comments Bilirubin, Direct (test 0.2 mg/dL 0.1-0.5 code = 1968-01) ELIANA (test code = ELIANA) Business Agent ID - EDASI Lab Interpretation (test Normal code = 36548-3) [facility] HospitalBasic Metabolic [id number] 06:38:00 Test Item Value Reference Range Interpretation [...] (test code = 7.8 mg/dL 8.4-10.2 L 20552-9) EGFR (test code = 39 mL/min/1.73 [place] [address]-6) NOT ACCURATE CREATININE CLEARANCE IN PREDICTING GLOMERULAR FILTRATION RATE . ESTIMATED GFR I S NOT APPLICABLE FOR DIALYSIS PATIENTS. ELIANA (test code = ELIANA) Business Agent ID - EDASI Lab Interpretation Abnormal (test code = 78539-4) [facility] HospitalBilirubin, [id number] 06:38:00 Test Item Value Reference Range Interpretation Comments Bilirubin, Direct (test 0.2 mg/dL 0.1-0.5 code = 1968-7) ELIANA (test code = ELIANA) Business Agent ID - EDASI Lab Interpretation (test Normal code = 76586-4) [facility] HospitalBal[facility] Metabolic [id number] 06:38:00 Test Item Value Reference Range Interpretation [...] (test code = 7.8 mg/dL 8.4-10.2 L 13008-4) EGFR (test code = 39 mL/min/1.73 [place] [address]-1) NOT ACCURATE CREATININE CLEARANCE IN PREDICTING GLOMERULAR FILTRATION RATE . ESTIMATED GFR I S NOT APPLICABLE FOR DIALYSIS PATIENTS. ELIANA (test code = ELIANA) Business Agent ID - EDASI Lab Interpretation Abnormal (test code = 88639-4) [facility] HospitalBilirubin, [id number] 06:38:00 Test Item Value Reference Range Interpretation Comments Bilirubin, Direct (test 0.2 mg/dL 0.1-0.5 code = 1968-7) ELIANA (test code = ELIANA) Business Agent ID - EDASI Lab Interpretation (test Normal code = 87044-0) [facility] Metabolic [id number] 06:38:00 Test Item Value Reference Range Interpretation Comments Sodium (test code = 132 meq/L 136-145 L 2951-2) Potassium (test code = 3.8 meq/L 3.5-5.1 2823-3) Chloride (test code = 106 meq/L 98-107 2075-0) CO2 (test code = 17 meq/L 22-29 L 2027-) BUN (test code = 36 mg/dL 7-21 H 3094-0) Creatinine (test code 1.77 mg/dL 0.57-1.25 H = 2160-0) Glucose (test code = 87 mg/dL 70-105 2345-7) Calcium (test code = 7.8 mg/dL 8.4-10.2 L 54462-7) EGFR (test code = 39 mL/min/1.73 [place] [address]-0) NOT ACCURATE CREATININE CLEARANCE IN PREDICTING GLOMERULAR FILTRATION RATE . ESTIMATED GFR I S NOT APPLICABLE FOR DIALYSIS PATIENTS. ELIANA (test code = ELIANA) Business Agent ID - EDASI Lab Interpretation Abnormal (test code = 99402-8) [facility] HospitalBilirubin, [id number] 06:38:00 Test Item Value Reference Range Interpretation Comments Bilirubin, Direct (test 0.2 mg/dL 0.1-0.5 code = 1967-7) ELIANA (test code = ELIANA) Business Agent ID - EDASI Lab Interpretation (test Normal code = 89055-5) [facility] HospitalBILIRUBIN, [id number] 06:38:00 Test Item Value Reference Range Interpretation Comments BILIRUBIN DIRECT (BEAKER) (test 0.2 mg/dL 0.1-0.5 code = 706) Business Agent ID - EDASIBASIC METABOLIC [id number] 06:38:00 Test Item Value Reference Range Interpretation [...] 8.4-10.2 L (test code = 697) EGFR (WENDI) (test 39 mL/min/1.73 ESTIMA ALTAGRACIA GFR IS code = 1092) sq m NOT ACCURATE CREATININE CLEARANCE IN PREDICTING GLOMERULAR FILTRATION RATE . ESTIMATED GFR I S NOT APPLICABLE FOR DIALYSIS PATIEN TS. Business Agent ID - EDASIHepatitis B surface ewcvjnnm9439-87-83 06:14:00 Test Item Value Reference Range Interpretation Comments Hep B S Ab (test code <8.0 See_Comment [Auto mated = 37519-5) message] The system which generated this result transmit altagracia reference range : <8.0 mIU/mL. Th e reference range was not used to interpret this result as normal/abnormal . ELIANA (test code = ELIANA) Business Agent ID - DB Lab Interpretation Normal (test code = 43906-1) [facility] B surface [id number] 06:14:00 Test Item Value Reference Range Interpretation Comments Hep B S Ab (test code <8.0 See_Comment [Auto mated = 49861-4) message] The system which generated this result transmit altagracia reference range : <8.0 mIU/mL. Th e reference range was not used to interpret this result as normal/abnormal . ELIANA (test code = ELIANA) Business Agent ID - DB Lab Interpretation Normal (test code = 45343-8) [facility] B surface [id number] 06:14:00 Test Item Value Reference Range Interpretation Comments Hep B S Ab (test code <8.0 See_Comment [Auto mated = 49586-3) message] The system which generated this result transmit altagracia reference range : <8.0 mIU/mL. Th e reference range was not used to interpret this result as normal/abnormal . ELIANA (test code = ELIANA) Business Agent ID - DB Lab Interpretation Normal (test code = 02197-6) [facility] B surface [id number] 06:14:00 Test Item Value Reference Range Interpretation Comments Hep B S Ab (test code <8.0 See_Comment [Auto mated = 14847-0) message] The system which generated this result transmit altagracia reference range : <8.0 mIU/mL. Th e reference range was not used to interpret this result as normal/abnormal . ELIANA (test code = ELIANA) Business Agent ID - DB Lab Interpretation Normal (test code = 23154-4) [facility] HospitalHEPATITIS B SURFACE [id number] 06:14:00 Test Item Value Reference Range Interpretation Comments HEPATITIS B SURFACE ANTIBODY < mIU/mL <8.0 (BEAKER) (test code = 647) Business Agent ID - DBHepatitis B surface [id number] 06:13:00 Test Item Value Reference Range Interpretation Comments HBsAg Screen (test code Nonreactive Nonreactive = 5195-3) ELIANA (test code = ELIANA) Specimen is considered negative for HBsAg. Lab Interpretation (test Normal code = 31120-8) [facility] HospitalAlpha fetoprotein (AFP), tumor [id number] 06:13:00 Test Item Value Reference Range Interpretation Comments Alpha-Fetoprotein (test code 2.1 ng/mL <10.0 = 1834-1) ELIANA (test code = ELIANA) Business Agent ID - DB Lab Interpretation (test Normal code = 35048-8) [facility] HospitalHepatitis B surface [id number] 06:13:00 Test Item Value Reference Range Interpretation Comments HBsAg Screen (test code Nonreactive Nonreactive = 5195-3) ELIANA (test code = ELIANA) Specimen is considered negative for HBsAg. Lab Interpretation (test Normal code = 29760-9) [facility] HospitalAlpha fetoprotein (AFP), tumor qwxood9704-53-41 06:13:00 Test Item Value Reference Range Interpretation Comments Alpha-Fetoprotein (test code 2.1 ng/mL <10.0 = 1834-1) ELIANA (test code = ELIANA) Business Agent ID - DB Lab Interpretation (test Normal code = 76485-4) [facility] HospitalHepatitis B surface wxrnfdi8787-21-11 06:13:00 Test Item Value Reference Range Interpretation Comments HBsAg Screen (test code Nonreactive Nonreactive = 5195-3) ELIANA (test code = ELIANA) Specimen is considered negative for HBsAg. Lab Interpretation (test Normal code = 90950-8) [facility] HospitalAlpha fetoprotein (AFP), tumor euclel9245-64-59 06:13:00 Test Item Value Reference Range Interpretation Comments Alpha-Fetoprotein (test code 2.1 ng/mL <10.0 = 1834-1) ELIANA (test code = ELIANA) Business Agent ID - DB Lab Interpretation (test Normal code = 28174-8) [facility] HospitalHepatitis B surface oveifjk9026-43-16 06:13:00 Test Item Value Reference Range Interpretation Comments HBsAg Screen (test code Nonreactive Nonreactive = 5195-3) ELIANA (test code = ELIANA) Specimen is considered negative for HBsAg. Lab Interpretation (test Normal code = 72081-5) [facility] HospitalAlpha fetoprotein (AFP), tumor [id number] 06:13:00 Test Item Value Reference Range Interpretation Comments Alpha-Fetoprotein (test code 2.1 ng/mL <10.0 = 1834-1) ELIANA (test code = ELIANA) Business Agent ID - DB Lab Interpretation (test Normal code = 76830-8) [facility] HospitalHEPATITIS B SURFACE [id number] 06:13:00 Test Item Value Reference Range Interpretation Comments HEPATITIS B SURFACE ANTIGEN (2) Nonreactive Nonreactive (BEAKER) (test code = 2585) Specimen is considered negative for HBsAg.ALPHA FETOPROTEIN (AFP), TUMOR MARKER 2020-10-03 06:13:00 Test Item Value Reference Range Interpretation Comments ALPHA-FETOPROTEIN (BEAKER) (test 2.1 ng/mL <10.0 code = 1094) Business Agent ID - DBProthrombin time/GFV0087-72-74 05:06:00 Test Item Value Reference Interpretation Comments Range Protime (test code = 14.4 See_Comment H [Autom ated 5862-2) message] The system which generated this result transmitted reference range : 11.9 - 14.2 seconds. The reference range was not used to interpret this result as normal/abnormal . INR (test code = 1.16 See_Comment [Automated 9551-6) message] The system which generated this result [...] valves. Lab Interpretation Abnormal (test code = 16583-6) [facility] HospitalProthrombin time/[id number] 05:06:00 Test Item Value Reference Interpretation Comments [...] valves. Lab Interpretation Abnormal (test code = 58719-6) [facility] HospitalProthrombin time/[id number] 05:06:00 Test Item Value Reference Interpretation Comments [...] valves. Lab Interpretation Abnormal (test code = 17681-5) [facility] HospitalProthrombin time/[id number] 05:06:00 Test Item Value Reference Interpretation Comments [...] valves. Lab Interpretation Abnormal (test code = 20082-7) [facility] HospitalPROTHROMBIN TIME/[id number] 05:06:00 Test Item Value Reference Range Interpretation Comments PROTIME (BEAKER) 14.4 seconds 11.9-14.2 H (test code = 759) INR (BEAKER) (test 1.16 See_Comment [Automat ed message] code = 370) The system [employer] generated this result transmitted ref erence range: [...] 8.8 See_Comment [A utomated message] The system [employer] generated this result transmitted ref erence range: 3.5 - 10 .5 K/L. The refe rence range was not u sed to interpret this result as normal/abnor mal. RBC (test code = 789-8) 2.56 See_Comment L [Au tomated message] The system [employer] generated this result transmitted ref erence range: 4.63 - 6 .08 M/L. The refe rence range was not u sed to interpret this result as normal/abnor mal. MCHC (test code = 786-4) 31.8 See_Comment L [A utomated message] The system [employer] generated this result transmitted ref erence range: [...] See_Comment [Aut omated message] 777-3) The system [employer] generated this result transmitted ref erence range: 150 - 45 0 K/CU MM. The referen ce range was not u sed to interpret this result as normal/abnor mal. MPV (test code = 10.2 fL 9.4-12.4 75871-4) nRBC (test code = 413) 0 See_Comment [Aut omated message] The system [employer] generated this result transmitted ref erence range: 0 - 0 /1 00 WBC. The refere nce range was not u sed to interpret this result as normal/abnor mal. Lab Interpretation (test Abnormal code = 17007-5) [facility] with platelet count + automated [id number] 04:58:00 Test Item Value Reference Range Interpretation Comments WBC (test code = 6690-2) 8.8 See_Comment [A utomated message] The system [employer] generated this result transmitted ref erence range: 3.5 - 10 .5 K/L. The refe rence range was not u sed to interpret this result as normal/abnor mal. RBC (test code = 789-8) 2.56 See_Comment L [Au tomated message] The system [employer] generated this result transmitted ref erence range: 4.63 - 6 .08 M/L. The refe rence range was not u sed to interpret this result as normal/abnor mal. MCHC (test code = 786-4) 31.8 See_Comment L [A utomated message] The system [employer] generated this result transmitted ref erence range: [...] See_Comment [Aut omated message] 777-3) The system [employer] generated this result transmitted ref erence range: 150 - 45 0 K/CU MM. The referen ce range was not u sed to interpret this result as normal/abnor mal. MPV (test code = 10.2 fL 9.4-12.4 39946-1) nRBC (test code = 413) 0 See_Comment [Aut omated message] The system [employer] generated this result transmitted ref erence range: [...] H [Aut omated message] 670) The system [employer] generated this result transmitted ref erence range: 1.78 - 5 .38 K/L. The refe rence range was not u sed to interpret this result as normal/abnor mal. # Lymphs (test code = 0.86 See_Comment L [Auto mated message] 414) The system [employer] generated this result transmitted ref erence range: 1.32 - 3 .57 K/L. The refe rence range was not u sed to interpret this result as normal/abnor mal. # Monos (test code = 0.72 See_Comment [Autom ated message] 415) The system [employer] generated this result transmitted ref erence range: 0.30 - 0 .82 K/L. The refe rence range was not u sed to interpret this result as normal/abnor mal. # Eos (test code = 416) 0.12 See_Comment [Au tomated message] The system [employer] generated this result transmitted ref erence range: 0.04 - 0 .54 K/L. The refe rence range was not u sed to interpret this result as normal/abnor mal. # Baso (test code = 417) 0.02 See_Comment [A utomated message] The system [employer] generated this result transmitted ref erence range: 0.01 - 0 .08 K/L. The refe rence range was not u sed to interpret this result as normal/abnor mal. Immature 1 % 0-1 Granulocytes-Relative (test code = 2801) Lab Interpretation (test Abnormal code = 53454-2) [facility] (Hemogram only)2020-10-03 04:58:00 Test Item Value Reference Range Interpretation Comments WBC (test code = 6690-2) 8.8 See_Comment [A utomated message] The system [employer] generated this result transmitted ref erence range: 3.5 - 10 .5 K/L. The refe rence range was not u sed to interpret this result as normal/abnor mal. RBC (test code = 789-8) 2.56 See_Comment L [Au tomated message] The system [employer] generated this result transmitted ref erence range: 4.63 - 6 .08 M/L. The refe rence range was not u sed to interpret this result as normal/abnor mal. MCHC (test code = 786-4) 31.8 See_Comment L [A utomated message] The system [employer] generated this result transmitted ref erence range: [...] See_Comment [Aut omated message] 777-3) The system [employer] generated this result transmitted ref erence range: 150 - 45 0 K/CU MM. The referen ce range was not u sed to interpret this result as normal/abnor mal. MPV (test code = 10.2 fL 9.4-12.4 33102-3) nRBC (test code = 413) 0 See_Comment [Aut omated message] The system [employer] generated this result transmitted ref erence range: 0 - 0 /1 00 WBC. The refere nce range was not u sed to interpret this result as normal/abnor mal. Lab Interpretation (test Abnormal code = 11118-1) [facility] with platelet count + automated [id number] 04:58:00 Test Item Value Reference Range Interpretation Comments WBC (test code = 6690-2) 8.8 See_Comment [A utomated message] The system [employer] generated this result transmitted ref erence range: 3.5 - 10 .5 K/L. The refe rence range was not u sed to interpret this result as normal/abnor mal. RBC (test code = 789-8) 2.56 See_Comment L [Au tomated message] The system [employer] generated this result transmitted ref erence range: 4.63 - 6 .08 M/L. The refe rence range was not u sed to interpret this result as normal/abnor mal. MCHC (test code = 786-4) 31.8 See_Comment L [A utomated message] The system [employer] generated this result transmitted ref erence range: [...] See_Comment [Aut omated message] 777-3) The system [employer] generated this result transmitted ref erence range: 150 - 45 0 K/CU MM. The referen ce range was not u sed to interpret this result as normal/abnor mal. MPV (test code = 10.2 fL 9.4-12.4 11337-3) nRBC (test code = 413) 0 See_Comment [Aut omated message] The system [employer] generated this result transmitted ref erence range: [...] H [Aut omated message] 670) The system [employer] generated this result transmitted ref erence range: 1.78 - 5 .38 K/L. The refe rence range was not u sed to interpret this result as normal/abnor mal. # Lymphs (test code = 0.86 See_Comment L [Auto mated message] 414) The system [employer] generated this result transmitted ref erence range: 1.32 - 3 .57 K/L. The refe rence range was not u sed to interpret this result as normal/abnor mal. # Monos (test code = 0.72 See_Comment [Autom ated message] 415) The system [employer] generated this result transmitted ref erence range: 0.30 - 0 .82 K/L. The refe rence range was not u sed to interpret this result as normal/abnor mal. # Eos (test code = 416) 0.12 See_Comment [Au tomated message] The system [employer] generated this result transmitted ref erence range: 0.04 - 0 .54 K/L. The refe rence range was not u sed to interpret this result as normal/abnor mal. # Baso (test code = 417) 0.02 See_Comment [A utomated message] The system [employer] generated this result transmitted ref erence range: 0.01 - 0 .08 K/L. The refe rence range was not u sed to interpret this result as normal/abnor mal. Immature 1 % 0-1 Granulocytes-Relative (test code = 2801) Lab Interpretation (test Abnormal code = 63905-7) [facility] 04:58:00 Test Item Value Reference Range Interpretation Comments WBC (test code = 6690-2) 8.8 See_Comment [A utomated message] The system [employer] generated this result transmitted ref erence range: 3.5 - 10 .5 K/L. The refe rence range was not u sed to interpret this result as normal/abnor mal. RBC (test code = 789-8) 2.56 See_Comment L [Au tomated message] The system [employer] generated this result transmitted ref erence range: 4.63 - 6 .08 M/L. The refe rence range was not u sed to interpret this result as normal/abnor mal. MCHC (test code = 786-4) 31.8 See_Comment L [A utomated message] The system [employer] generated this result transmitted ref erence range: [...] See_Comment [Aut omated message] 777-3) The system [employer] generated this result transmitted ref erence range: 150 - 45 0 K/CU MM. The referen ce range was not u sed to interpret this result as normal/abnor mal. MPV (test code = 10.2 fL 9.4-12.4 64487-9) nRBC (test code = 413) 0 See_Comment [Aut omated message] The system [employer] generated this result transmitted ref erence range: 0 - 0 /1 00 WBC. The refere nce range was not u sed to interpret this result as normal/abnor mal. Lab Interpretation (test Abnormal code = 65696-7) [facility] with platelet count + automated [id number] 04:58:00 Test Item Value Reference Range Interpretation Comments WBC (test code = 6690-2) 8.8 See_Comment [A utomated message] The system [employer] generated this result transmitted ref erence range: 3.5 - 10 .5 K/L. The refe rence range was not u sed to interpret this result as normal/abnor mal. RBC (test code = 789-8) 2.56 See_Comment L [Au tomated message] The system [employer] generated this result transmitted ref erence range: 4.63 - 6 .08 M/L. The refe rence range was not u sed to interpret this result as normal/abnor mal. MCHC (test code = 786-4) 31.8 See_Comment L [A utomated message] The system [employer] generated this result transmitted ref erence range: [...] See_Comment [Aut omated message] 777-3) The system [employer] generated this result transmitted ref erence range: 150 - 45 0 K/CU MM. The referen ce range was not u sed to interpret this result as normal/abnor mal. MPV (test code = 10.2 fL 9.4-12.4 55934-8) nRBC (test code = 413) 0 See_Comment [Aut omated message] The system [employer] generated this result transmitted ref erence range: [...] H [Aut omated message] 670) The system [employer] generated this result transmitted ref erence range: 1.78 - 5 .38 K/L. The refe rence range was not u sed to interpret this result as normal/abnor mal. # Lymphs (test code = 0.86 See_Comment L [Auto mated message] 414) The system [employer] generated this result transmitted ref erence range: 1.32 - 3 .57 K/L. The refe rence range was not u sed to interpret this result as normal/abnor mal. # Monos (test code = 0.72 See_Comment [Autom ated message] 415) The system [employer] generated this result transmitted ref erence range: 0.30 - 0 .82 K/L. The refe rence range was not u sed to interpret this result as normal/abnor mal. # Eos (test code = 416) 0.12 See_Comment [Au tomated message] The system [employer] generated this result transmitted ref erence range: 0.04 - 0 .54 K/L. The refe rence range was not u sed to interpret this result as normal/abnor mal. # Baso (test code = 417) 0.02 See_Comment [A utomated message] The system [employer] generated this result transmitted ref erence range: 0.01 - 0 .08 K/L. The refe rence range was not u sed to interpret this result as normal/abnor mal. Immature 1 % 0-1 Granulocytes-Relative (test code = 2801) Lab Interpretation (test Abnormal code = 57271-6) [facility] (Hemogram only)2020-10-03 04:58:00 Test Item Value Reference Range Interpretation Comments WBC (test code = 6690-2) 8.8 See_Comment [A utomated message] The system [employer] generated this result transmitted ref erence range: 3.5 - 10 .5 K/L. The refe rence range was not u sed to interpret this result as normal/abnor mal. RBC (test code = 789-8) 2.56 See_Comment L [Au tomated message] The system [employer] generated this result transmitted ref erence range: 4.63 - 6 .08 M/L. The refe rence range was not u sed to interpret this result as normal/abnor mal. MCHC (test code = 786-4) 31.8 See_Comment L [A utomated message] The system [employer] generated this result transmitted ref erence range: [...] code = 172 See_Comment [Aut omated message] 747-3) The system [employer] generated this result transmitted ref erence range: 150 - 45 0 K/CU MM. The referen ce range was not u sed to interpret this result as normal/abnor mal. MPV (test code = 10.2 fL 9.4-12.4 54525-3) nRBC (test code = 413) 0 See_Comment [Aut omated message] The system [employer] generated this result transmitted ref erence range: 0 - 0 /1 00 WBC. The refere nce range was not u sed to interpret this result as normal/abnor mal. Lab Interpretation (test Abnormal code = 69091-7) [facility] with platelet count + automated [id number] 04:58:00 Test Item Value Reference Range Interpretation Comments WBC (test code = 6690-2) 8.8 See_Comment [A utomated message] The system [employer] generated this result transmitted ref erence range: 3.5 - 10 .5 K/L. The refe rence range was not u sed to interpret this result as normal/abnor mal. RBC (test code = 789-8) 2.56 See_Comment L [Au tomated message] The system [employer] generated this result transmitted ref erence range: 4.63 - 6 .08 M/L. The refe rence range was not u sed to interpret this result as normal/abnor mal. MCHC (test code = 786-4) 31.8 See_Comment L [A utomated message] The system [employer] generated this result transmitted ref erence range: [...] See_Comment [Aut omated message] 777-3) The system [employer] generated this result transmitted ref erence range: 150 - 45 0 K/CU MM. The referen ce range was not u sed to interpret this result as normal/abnor mal. MPV (test code = 10.2 fL 9.4-12.4 92177-7) nRBC (test code = 413) 0 See_Comment [Aut omated message] The system [employer] generated this result transmitted ref erence range: [...] H [Aut omated message] 670) The system [employer] generated this result transmitted ref erence range: 1.78 - 5 .38 K/L. The refe rence range was not u sed to interpret this result as normal/abnor mal. # Lymphs (test code = 0.86 See_Comment L [Auto mated message] 414) The system [employer] generated this result transmitted ref erence range: 1.32 - 3 .57 K/L. The refe rence range was not u sed to interpret this result as normal/abnor mal. # Monos (test code = 0.72 See_Comment [Autom ated message] 415) The system [employer] generated this result transmitted ref erence range: 0.30 - 0 .82 K/L. The refe rence range was not u sed to interpret this result as normal/abnor mal. # Eos (test code = 416) 0.12 See_Comment [Au tomated message] The system [employer] generated this result transmitted ref erence range: 0.04 - 0 .54 K/L. The refe rence range was not u sed to interpret this result as normal/abnor mal. # Baso (test code = 417) 0.02 See_Comment [A utomated message] The system [employer] generated this result transmitted ref erence range: 0.01 - 0 .08 K/L. The refe rence range was not u sed to interpret this result as normal/abnor mal. Immature 1 % 0-1 Granulocytes-Relative (test code = 2801) Lab Interpretation (test Abnormal code = 13334-4) [facility] W/PLT COUNT & AUTO [id number] 04:58:00 Test Item Value Reference Range Interpretation [...] 0-0 (BEAKER) (test code = 413) POCT-GLUCOSE [id number] 21:32:00 Test Item Value Reference Range Interpretation Comments POC-GLUCOSE METER 128 mg/dL 70-110 H : TESTED A T [facility] 67[address] (BEAKER) (test code = [place], 1538) [address]: Business Agent/Techni min ID = [id number] for Lien Mansfield Vancomycin level, [id number] 18:09:00 Test Item Value Reference Range Interpretation Comments Vancomycin Tr (test code 6.3 ug/mL 10-20 L = 4092-3) ELIANA (test code = ELIANA) Business Agent ID - DBIf vancomycin trough level > 20 mcg/mL, hold next vancomycin dose, and contact MD and pharmacist. Lab Interpretation (test Abnormal code = 54402-5) [facility] [id number] 18:09:00 Test Item Value Reference Range Interpretation Comments Vancomycin Tr (test code 6.3 ug/mL 10-20 L = 4092-3) ELIANA (test code = ELIANA) Business Agent ID - DBIf vancomycin trough level > 20 mcg/mL, hold next vancomycin dose, and contact MD and pharmacist. Lab Interpretation (test Abnormal code = 24063-0) [facility] [id number] 18:09:00 Test Item Value Reference Range Interpretation Comments Vancomycin Tr (test code 6.3 ug/mL 10-20 L = 4092-3) ELIANA (test code = ELIANA) Business Agent ID - DBIf vancomycin trough level > 20 mcg/mL, hold next vancomycin dose, and contact MD and pharmacist. Lab Interpretation (test Abnormal code = 76401-6) [facility] [id number] 18:09:00 Test Item Value Reference Range Interpretation Comments Vancomycin Tr (test code 6.3 ug/mL 10-20 L = 4092-3) ELIANA (test code = ELIANA) Business Agent ID - DBIf vancomycin trough level > 20 mcg/mL, hold next vancomycin dose, and contact MD and pharmacist. Lab Interpretation (test Abnormal code = 42913-3) [facility], [id number] 18:09:00 Test Item Value Reference Range Interpretation Comments VANCOMYCIN TROUGH (BEAKER) (test 6.3 ug/mL 10.0-20.0 L code = 522) Business Agent ID - DBIf vancomycin trough level > [...] PERCENT (BEAKER) (test code = 2801) POCT-GLUCOSE [id number] 17:36:00 Test Item Value Reference Range Interpretation Comments POC-GLUCOSE METER 124 mg/dL 70-110 H : TESTED A T [facility] [address] (WENDI) (test code = [place], 1538) [address]: Business Agent/Techni min ID = [id number] for Jaswinder [employer] [id number] 14:24:00 Test Item Value Reference Range Interpretation Comments Case Report (test code Surgical Pathology = 104) Report Case: [id number] Authorizing Provider: Sarkis Laboy, Collected: 10/01/2020 09:43 AM Ordering Location: [place] [address] ccu Received: 10/01/2020 01:48 PM Pathologist: Pa Peters MD Specimens: A) - Biopsy, Gastric, random biopsy B) - Gastric, gastric erythema biopsy DIAGNOSIS (test code = f8zyiAFeRLOno0bqDWLdeH 3220) FuZzEwMzNcZnRuYmpcdWMx IHtccnRmMVxlcGljOTIwMl ynefYcGDOpaGRaK1Vmymfy SLeaTH3pBU6pwAcuhBMzkK CcDLMeKhTql8zvo509gKIy k6guHAQHfjdjrHa6vFjnA1 9gb6L2TqdyB55jvXGzOAzp bGFpblxmczIwIEEuIFNUT0 7QU4tcNEJRJcASJJITIqDY T3UUSTbRPN3YP68AAWjlTf hXVRGKJOO9JACygmb2JFGn DJXSUzEFXWocXRFKM4KJMQ dJVEggTUlMRCBDSFJPTklD THhSGHNFKGJFJSeIP5XGPO LLGtHARdAlIp0QYDckWA3Q ARJHXE0NVXAZIXBQGSqWI9 lWVLFwnew5YDFyHOELPJiN WNfZQK0GR66RDEOFWTIYUS 7QGPQpA0rUW60YZpRCLfZX VElWRSBHQVNUUklUSVMgV0 cSXLNZH8TKFLGSS1XHZqgP JZchIPZkdLTkEJ8gA6WBGV sPBuBTUZLNQsvvT3NVVF7d AfZEFJSDSmMyXt0FKLnnUH BKMH5YPCYVPAiDFS2WI5ZX ODZHO8rnJWJjnUEaAF4kHm LOHPGCFhIyHs8DUQTMT0YM KUDMZDUUHqABMSYFYY8PZK WvfIYkQQTubzANFnVYOK2V QUNILCBFUllUSEVNQSwgRU 2JJ0ALC7CFTuQUWFTQV9CC MCIWW1ISCTSUHantTBQefY TnRV1cY8yAKoVPMjNWSQWX R2PlT6jTIZEZBHiOTHVPLc 2RFYCuJM9OP1ZTJwTgG9TA VFJJVElTIEFORCBWRVJZIE UDT2VKVOWTJEoPABHLNQHg ciAgICAgICAgICAgICAgLS AUDP7DFvFoCLQGTKKDTLGI W33TVSCGVE3KQKMYUVGUSX JUTFkgREVOVURFRCBXUElU SFWYHINEOVPnkqr3FDNfYE BXQVJUSElOIFNUQVJSWSBT VEFJTiBORUdBVElWRSBGT1 OnWU2lLRpUI8UEPHjNA8Ow Z4IZCC5JW89ZWXGhoum3DI ZpDICNVWsXRBuHBZBIH8Ls FM9YQLYKAC9NYSDYCVOQOE aNR1yRSCIHSHMMSYAEQNUy A8BqR8LAF9xBD14AYJOmda 28WKH2LnJvn5Y6IQD4IQKs PTBzl4rnOOSuxTJhYrJxGq NcZnRuYmpcdWMxXGRlZmYw n7jym298hJWhq5eqTQVzUg G5gVJgTKQwgRUkT352OJCh KSehr4kio3UmARMhwEDpp7 C7VBVUtgndvOf4sAdgC47h u6E4NvjlI2lfRRLxQSKqD7 ArHW4rJRXdXre7OOE7KWK3 HVBvMWJdZ1InHV6lTRFyrI ZwNSi4g0pjpUrzCLFxSZM0 c7lzSRrzowMmEL9fyl1jdX f8o2mfddUlTUJaWZLpkWMM EGAjC5HqoXxnZn2ejXb7dY glFpslEAS6Dun5UC5cxw54 bvz0rGtdUPGfokaxKwW4SX lmJREjgijvIOk5QDnsTCFa jYE1BPTyoBOiG3OaVQCrBL 6zzwj0ZPN6MObwPPMbMfD5 NDBcaGVhZGVyeTcyMFxmb2 23IDY8OvUpLW9pQ0Gdt7H8 iB4sbIErCNDqrJGkQqTjIK Ulyb8ajFOxXQpec3CqPKQ8 nbS6wNGdjMFkPGBzZjO3EQ puOL6prk34UXVtDJZ5gz9c bGNccGdicmRyaGVhZFxwZ2 AhUCLol878UAWgI4UuGTYt q4H1xlRrIlFeNXSvuJF7ow B9XVLjRY5qeoxbi4zmXDhg DPijLAJkztH8qeH3JNPruH XfJ8DpqO4gISWfJL7biqbx l4rhPOJ1RUdhTBNdGUB6Tv QkCXOku1Yrpxe3TaXnb4Yu mLOrTVmrI55nn353APFssm OiK6bjqEBruzufbVWuqsdi FVqicgM8OBOsDKighdrtLD EkHAyjS2fwBkGcSNXdwBuw PSijt6UgJWOeHKPqIvDqhG NrFIDdDhn3OGLxfICaNXEa VeBjB5wfxltcDfTQXPPem3 jsE0ladMHXsHHfB1AsLLrn ncSoRQcnKOvhROYoDEZ6MN 32OBjzMWNyks73 CPT Code(s) (test code j7wtyUUvHHZqtFO3AaJdGO = 3353) Bkb8nlc0AliCPncDPnZMgp mKJfplPxrm93rFL4tR18EJ 0uIAPzEuK6RLShleL1Vhy7 KODdQVMpiUFlD834c9jgl5 mieuUeoOG8oRmrZOZuLRIj YWluXGZzMjAgODgzMDUgWC NzXRE3UTGgDwNQVgmsUXB4 CLINICAL HISTORY (test t9eikPQnKIHrdHP3SoRfVO code = 3356) Zxv3qoj0GpyXZbmKHeKWwk kSXjgdCwil64lYB8tF96YO 2tWHMyZmX8SEJoxzF4Hog2 VQIjXGRbdVOgL259s8mgh0 rcaqDnoUA1tRfoWYEmCGWw HClpZYWzCrLltLXhDU3sWH Bhcn0= SPECIMEN SOURCE (test e2tyuWNtUHCdeYY6HdLmWD code = 3377) Vzq2mjm9IydHHttAAvEFah cTCwnrYefi04jJX8xN12CT 6oVGXbDwG4BGRvciH5Htd7 XVQdDAWynMDwH822l9cxw5 ycteKiyQR6eCwlEECdUHDt VQyiKUDvSsDlDZ5vZVtyy8 AhgRIapMfeUGNTMaBmU8Ky dQOaT1hiQCO3 GROSS DESCRIPTION (test v9lldSAlTCFqrESeLvMjDN code = 3366) OmESWfx3aoWANeeULlFeZt MzNcZnRuYmpcdWMxXGRlZm Rbg9pry929uCQxv6xaKEMg VkR8bRDuRIPjcHFeM675z9 jmt3bvmwVuwZZ5WBCiDOY2 GNwctvOwfvQ1STeuzNUlQy F6GFieijSuUGykjdIabpGm Ued9JKQpI094WWM2aHpbp1 hjWYA0SGRkMBLeVnHhTx4g tMSgK717TAUbRJLQAZChgZ m4SAOfagYwszMpgFVEh028 R024n4asXYNzrkVxxCcMhq vbq7grM448FUDnyWQkirRr PpIbBZWdrAGxkRY5GMVrQQ 6jktjiBlPuGC8wzfjfPbKy SC0hdtf1JaBdUL9vjxsiAo JaPPrlYXNrqedyNQGdu4La nxceFV6jG7Dww1K8pD4ymJ JeLOZhgXBaCiFpOXIcxg3n oGXsKNxhb7MfSKJ3dpN1tC MmhZPlDQVeXT37Jjpey2Tc TxykZUI7FEGtpsTjh3Lyy5 jcZmZmwcOaA5ydO5EuCWCd GNNfGCYsDjLztbFyc0Mai3 ZmaQMesMx7t2elDJCkOGAv uDxal8pvKZO4DPIeL1A1tN Krl2vyDCrrXJNcoDA0uyge IFtvKRTcgeT2npasBKzxZE KiuRB7cimtDRefYWHaVkB9 dehgGCuxSQCwSKU2PIkkx1 95JWL4ONfqJzsvRMecJDDj bmNvbnRccGduZGVjXHBsYW luXHBsYWluXGYwXGZzMjRc lIrrfDyrfV1zStNtKhVzQN qqHT4dFIFpL8ojaZEoQUJt SVDvY0fbCgKesB1zwAbyRK xmczIwIEEuICBSZWNlaXZl QBLqjdUdl0JkTCxcvbScEI WlcFFoVPNnJSPtVSSqCZ98 A4HqeiKlRMgyQFTsZXNtcJ 7aQB53fBLvkgMvcuTfUbnl m2HgkVFlRwhehXK8RfNwos DrGRP7SN5wjEkkewP5qLSn lBOxXmSvK06ykvMrVI7bQB V0fmawVpK3yGP3qjNlWrQr D79fmB1uF5ZzBMMtt7EoYR cqDZ6vmV7hVKtqrUUoAYHq BYRbhJl4QWBqJPJaarFgt9 IzoFy9iYAyVCyrTQPrwC2p zA5mELWtIAEppyxbIKKnWf 9wBSYyG6FinfDjRBfyMMEu bh5htMhyWJkzIdFyLCWbeM kjVTMrrCgjjbOuawOuST8n FOQgI0Pzg5Frq89fgqByBf DzDPGyXNTsZ3QjvKBwSjDh aXMgYSAwLjIgeCAwLjIgeC RoSbBrK21fhWCaTQIrsvcv kSwwh2RaXJPdJAirFG58GH doaWNoIGlzIGZpbHRlcmVk GZGwORZpiUXleDA0XTNrfN 6svS69ydTqmfYEZN8tpFLs VIThzcREmYxnwxAZxvj7IY xsZXMsIFBBLCBIVCAoQVND UClccGFyfQ== MICROSCOPIC DESCRIPTION p5wgpXXhVJIjeEX8WoYeAM (test code = 3371) Pwf9zsn4HbmNYsvROuASbg gUAqsuCrcz03cXO8lP18GI 9bRGIcXlK8QOLclsH8Bpo0 QJVeBVYmuIYdF803f4oao2 mjvjVzfNO6rApiCDUvYGSq SQofCQByErPaPZQkIg2tyK VkLlxwYXJ9 SPECIAL STUDIES (test g3bnfIXtIMVts5khZECgvZ code = 3376) FuZzEwMzNcZnRuYmpcdWMx AXbpnsJsIPyjc3OzT4BlHg AwMFxhbnNpXGRlZmxhbmcx PHOkQZA8ivLlIRHoDIqiDR DiGHrhLz2maXBfoTubXxAq QXTub9lodpBVakjjrEq2z0 oiGKZsHsY1iIRcODwfC5qq uxUyjUJuI0HlhZUafUc8u8 taCxEaJgT5yXTbMJagY6fe qdMpbVBwRWKoJBt9eO72KJ IjoZ2acDAxGHsiglFsGtE8 ZYhyMQZvThK2FKDksPVfSY TsP5ncMIRcQGcaCPIoQYhy jEDfYZD3dRdwc1R8yKEeuP RaaFaoDrAtTxQfMeQLd6Jt ZTu3yZpuF9VhVGDzLjV9uC QgUGFyYWdyYXBoIEZvbnQ7 gVjikvSdo41xfXYePSZwTZ SbJvFgkDueWZSnWFPYl9Cr wQawTVH9xCx8oIfoLmteOG W6Uew1PB6smc98szb7zXhn ALIejoioCmB6ZUxqBOYlyj qqOIp6DLclJLXilDD3OISs hMCxR1EjBMNuMZ6xpov5WU S4VDmvWHLvEtD1QBSmxUVx OWJtzIgrPJjwy431EHX4Cr FkZS5mC3Wob7V8aB4crNBl ZPKqhXNfJyWkIMUkcy7ntP UmDLrqt7ApXVR0moQ4yUKq cLInPQPiHS37Bgcys6XgCa biq8LeN07fcJP6HYqtc0nx JQ2nSmZ5qeWfUHbof6eytK 2wAnS0BIdrUV0fIQ7pTTRl yP5vjatwFNBlFqLwggqmLE TddIuisbAgDv3pdBksGFO9 NVlwQ7yphI5dDwR7BOqtH0 gvuG2dXBl8GWbjaVY4IOLk eX3vZU4ibxyjj5fsFTpkZO llRSYsjtI0orC4SITefIBn J9GguB3mTHJbPT8daepiz9 xfKLG1JVniJAZyIQB7YuJi CAJed0Jqlxe8SkKtw7UjuT WbDWvyG17yd043LDNuloYb H4mamDMblkhlpTJeqvwsSJ nwxsN7HWGvMRScQMyvYDOr XGZzMjJcbGFuZzEwMzNcaG ljaFxmMVxkYmNoXGYxXGxv L5aoFaSwZ0VqZRVvBfGkPI xeAMchfDXtrMPxxEQ0oI3e TM7gNYVglBOmX7YqYTIumt ZazRHaYLD2yIYkgKZyCD6t OCsozQUog3ilu1VpR0oexU bikAI2HW1tJGKdQENyALzz v4DulT1qGfmhvSHfsoriKG xmczIyXGxhbmcxMDMzXGhp H9wcFwOhLKUadChdAQrrl6 NoXGYxXGNmMlxmczIyXGx0 cmNoXHBhclxwYXJccGxhaW 2wYkHcQkLlPpscCL7sFIEp G2wxmJIqGNGmATDlO7qcMj RelP1lxOysBNweNjLkUcHm KoLUc838xo8uMXQnmFGrue TJeXAwlR6pYZwlAWpaVLag zAHlZRlco5tcPTRwg5m3kC DpVUWwpxPbq3zxZTpxkgUj FJIgxLZdfBBuLOIry72gIC njcLtpfEjtSETjr8WspMgl l2JgOvIaYJuot3YdO54xrB JvbCBzbGlkZXMgcnVuIGFs b99aj0gdQALqHuA5zMIvzF O5wPRfbGNjc7JukUtvMGBe f5lbOAYedg2syudsoKUqd2 GmjM9thmxbBHfldBJjmpAn ZGBix2j9dUWgXFNsKTRjOE eawOr9VJOji127wp7tvqR2 fJNnFSF8WJjxNLWvFLVyfl UgZXZhbHVhdGVkXHBsYWlu XGYxXGZzMjJcbGFuZzEwMz NcaGljaFxmMVxkYmNoXGYx UOhvY8laLfYiN1LzONPiXz MizVMoD1hibDIcNDQyRGpo XGYxXGZzMjJcbGFuZzEwMz NcaGljaFxmMVxkYmNoXGYx DPxlM3jpRtWfT8FfKOHpQp IgIFxwbGFpblxmMVxmczIy ZPkdslezQDCnWQnhT1nwQm RzKXVgmYupUHmpf5UbQMFl AOHnMtuslmEqGCq6szTsLJ BhclxwbGFpblxmMVxmczIy YLxbliurPONlICryD7zeSw FcZGOdjQklMVatv4KcDDUd XGNmMlxmczIyIEltbXVub2 rck2XvJ8ytiJbrtUY6SPCr B4knwHDgbWW2NBD0wC7aAD mircFmNQBuk9CbEQEpPTKu BrE9xJ3rWCT7EmBCeAitVW BsYWluXGYxXGZzMjJcbGFu ZzEwMzNcaGljaFxmMVxkYm VsRNLqZUwsD8xuIlOiZ7Is TXIyKePhgGqvYZhqTLl6Gm xwbGFpblxmMVxmczIyXGxh lvuqIIInBUtiN4rzKjDnUD QcaFgeYVdfk4EcNDVhYUPz MlxmczIyIHMgTWVkaWNhbC OTRH73GWXuSNCyoBvomA6w iQKQVLAwacG2b8F8YJheAZ CzSJn8KAbrgwIdECNoeQ4w LJCjIH8dLWd4gcKlHVBdh5 DvYH1kABMiaVLyNCZ1TVVo b2RzT3Cmi3JkPXCgFJMzyr 6qjsEsNdKJpJTfCZCwnj56 LGVnRV5lF1wyNWHeKZIeyn MajFZoe6PlPBEwyWL3sXIw TY8CHqEMb42dYKYgDLBSky QcDESfuZtmlEW7fnU3sH5h LiBUaGUgRkRBIGhhcyBkZX Pzok5lluItMSJxLIDlb3Mp cBQxuBCgllDvU1Rjy2XfMQ Vsuy07JGdiaDLkez93JW4v W8Pwb9RabR0rQQxkJTUkm7 EufONqzQRgZQNgj4NhI1mg qiktLFkldTTeuB1dWEXvAB q6PQRjk2NnRTVgp2WnPcHv yvGePMSkXPJbLKRtbC25OI V3rVmejKxfxgXtBP2dAOEm ihGxVFClCWXjfL7lCNsnkf KsPZDcdmO0t8Y8YLxuDRNt bjMyHosfFFG4hqTmgaH0kM MbI7wbnbcbWCqfQTBjb8Le zM6hfPWRiAVje3WgtWYtnD TQwMIxJO8jmwHfAH6dKPP5 ODggKENMSUEtODgpIGFzIH J9OZecIvycQAO9cgHsVYGy r8HhTMccS3trC21nzYejaM f3lCNtrGufoHCxtRGsKXHl vhU8v4X9HWPcr6LbfzzhUJ BsYWluXGYyXGZzMjJcbGFu ZzEwMzNcaGljaFxmMlxkYm AdOLJjKBlhO7tnWxNuQcOp EfuxWQI1mQ== Gross assessment was [facility] performed at ([facility] [facility], = 2777) Department of Pathology, [address] [place] [address], Technical component was [facility] performed at ([facility], = 2778) Department of Pathology, [address] [place] [address], Professional component [facility] was performed at ([facility], code = 2779) Department of Pathology, [address] [place] [address], [facility] [id number] 14:24:00 Test Item Value Reference Range Interpretation Comments Case Report (test code Surgical Pathology = 104) Report Case: [id number] Authorizing Provider: Sarkis Laboy, Collected: 10/01/2020 09:43 AM Ordering Location: [place] [address] ccu Received: 10/01/2020 01:48 PM Pathologist: Pa Peters MD Specimens: A) - Biopsy, Gastric, random biopsy B) - Gastric, gastric erythema biopsy DIAGNOSIS (test code = [id number] 3220) FuZzEwMzNcZnRuYmpcdWMx IHtccnRmMVxlcGljOTIwMl daiyOdFFUafYHoB4Kqjwrj QKxqKF5rUM0ioMcvxTRwpA CbNXEaNcRqj0pey586eAXw u0wmKTVAfcygoCd1iNyrN8 2ut5T1DxujP58qlDQqEMdd bGFpblxmczIwIEEuIFNUT0 6SO2ktXEXVOxYEODGJPmRU S4DQUTrJFG8FE70ANHexBs iRKMIIOER0NUEjfpk0VSZm QMMDEaNBDBjuFAVXE3OVUI dJVEggTUlMRCBDSFJPTklD SAgMUWCZAMWPIMaFM3SBRG BEZoEVXlKhVx4ZFSedXP2Y IXTYKI2ONBMXTMAMCHpHG0 tNJCNrsyz8BTAuVWHZVCxZ FIgQDT9JX28AQJIRFPHQQY 0BGFKeU6iVU35BXePUKpJD VElWRSBHQVNUUklUSVMgV0 aMUVPTT9YUJDYWW5NDQdwN OLrhDPKemNPpSN0bS2CXFZ qQRwCGBOZRJjppT5RTVE8s HsFRFAGYUjVqZi5NYIgvUV JZQH6IAWIUKHlAXQ1IV2CE ZNCTT4hlZFBxtYAaEA5dAj YQPSSORnImAx0GRNDOP6XG ILWRMJHUBhCIUOHGBI9SEI UfoKInQUFnzaSHXgJHBA4B QUNILCBFUllUSEVNQSwgRU 8NW4IAF7UEQiNOATJHE3QV LKCQI8GJMTANDhspHTHyeI WgLX8yZ8bKFmOJRzKTVIAI E0ZuU0aNRNQHLRdMIODARn 9HQKPgTB9AV0GRBtQcC9QZ VFJJVElTIEFORCBWRVJZIE AGR7VYHLDRBTzPTQOWEIAp ciAgICAgICAgICAgICAgLS OFDZ3GPtFpDTVKUFDWPRKZ Z34DOPILPX8NOJORNWEPIE JUTFkgREVOVURFRCBXUElU DABRSEDDMMEbuls9MVClIW BXQVJUSElOIFNUQVJSWSBT VEFJTiBORUdBVElWRSBGT1 EuJU9yWGfPQ7THCYrDK1As A8XGPC4WI30BMOAtbrd2UC RnIIHOARmDBSxPCOLQW0Vl VY5GYMKYTU3NTBZPXZZFNR eUF4oBMHTMYARHXEFTVDGt G4IkM1OPU2fOJ28YKOOnos 53WWY5OyBai7M7VTA5VNSw ZFPmh1vtFNZguJRzSpQsKx NcZnRuYmpcdWMxXGRlZmYw t7zme685wDXxu4lrIZSuYe X2rJLvMLEnnLAfB604XPCj HHzid9reu1MjQWFynNIhx6 Z9XJAOlmueyBu2gRzeZ97e e2K4ZhsaJ0qyXYPzVEIkS5 WtHU1hTPWcSmn4UZM1BZC6 XIBzDFKwC1AuRN3uJMSxtC XeNPh1q9lwaTkeWIZcTOW9 a3wjOTbezmPhZU5umy5rwF n6q3rxtbVvBQCjQYGkxXSP XHNpV9XeeMbzHw8ndGk2hW guZrxbAJP2Fsi5TK8oug32 xrp6tFhoEDPkheqwZsW2FG auYUYxpasiRXd1LNtmOGDu jPO3EMBhxTDfB8DfZDMdLC 1onrt1WDH5UOmaAKQsOpR7 NDBcaGVhZGVyeTcyMFxmb2 70UQM0JdVrDF2wH9Kuu7W1 gJ6umUNfDCRjeIFbLhRqYH Xtbf9pyYOzBSbsm3ScCAJ2 qkF5xZDbdAPjBLMsUiD5BI qwIB7zwa55YAEtNRM3bm3g bGNccGdicmRyaGVhZFxwZ2 PdNIYnh033WLSbU5InQVUk i6M2glHlIgKrLONnuRT0me P9AUUqML0mmofsl8uwUNbo TUhgQIHshxX1mbF1MVAftL ZlU4XsmP7yMTBzRF6rgped l2jfYEL4DYkuLADbIRD2Bo UbXPGev4Yejew9IuGxn1Yc rURnPXhcQ25rl607NCRoew DsL1wqiMPotrwzzGCdevfe VTxwmkB5NVCgHWjlgmtnNP SjLOdaY4jpWyWdXZOgcYsg ZXtix1AgVNUoXKLfEaNroM MjXEOdEze5MJRuqDXgCRCm HwDlY0ednwwlHyJUSMVhx7 biA2ogzWGVxVHfV6NwADfy onXtTHkhFKyeBBJrMCU7BI 01LAevYCYpsp47 CPT Code(s) (test code q4xluPPjYHIbtZB4XpBvGE = 3350) Luo0kic4TacYLpuJKmIWrk uJWodyLgge62pDC5kS32IM 0xOQKnYxC6EIAyapT9Trh0 PVEpQGThjADfG961f0uzw0 pywaNyqAU1sHrlTEHiFSQx YWluXGZzMjAgODgzMDUgWC UcEZG2ZJKqYuCKJpqqURT5 CLINICAL HISTORY (test v3xxrSKfDTLhdTG3PjKhQX code = 3356) Ogn3oxr7UuoMQlaPXhGPuy xWKlbzKyfg99qLZ9nV13OZ 7sETFyJyZ3LFFzixJ6Yqr3 DTEmXAUozGJeJ013c5dsl1 uhauWgbUW7vOphRBYxHELs RMunOWAbQoXxmOHrXD0rAH Bhcn0= SPECIMEN SOURCE (test s1fidTHnCXDabWZ7AtYaCO code = 3377) Pun2vin2TjrSYwbBInHYkf cAVzhnIpbr59aVT2nU97LG 6jSTRpZeL6CGQgywA7Lmz6 SLSmBMPnlORyQ237y7lza4 oajcPziWJ6cEfyKQKtZDUc NTbgGKTwDjFqFM9yVBhvg5 SfaHHawIwlAVUWOkIiO9Nt iCKxJ1jzNBG1 GROSS DESCRIPTION (test n2udtVTeOXQojRWqWwYfCX code = 3366) XcXILda2gmQVWpkVFzRvMp MzNcZnRuYmpcdWMxXGRlZm Yfk9clx976bCUwi6pxJHJa EcY6jOFtMIBcsJJdB746x1 jtl1tsllQztTR0OHYtHVM6 GOinbwYrfuU0AXgcmJJkZa S8ICanexIkGEedzoEwaxNk Pwy5AMAtL969MHD4gIzcu5 qnXKC7VBPlQBQvLrKnYa0p hMWoG960YMDsQSSPPZNeeA z6NCUmlbLswvWvjZIKd438 Z007f3qrZEGzfbJtkJzXdm sjy6upY432ILJqtNGizeXs GcEiOLHrbAKiwUO5FNSxEW 4qzaujBzNhVJ3cbuniFxCy XB5idlh5TxNmIB9cdmdfGi LfTCeuOVHrldivDDEwy1Kl goucON6lH3Txa2F3yS3vrY WpBYTygGAkUoBkCBFksm0k kVXpKPtra4SvNFK1igZ4bS DyjBWoSDNnMP55Iiozc4Ui ZuenTDG2ZWIptoLho4Lsz8 gdAzMjnpIaG5neE4XsXVZr XNCgDQKkOhZqbeAwc0Cmx6 OijDAnnEk1j6koHCNlWVMz wHhtt8gcKZW0UVOkE5D8lJ Ykp2scFQroMOErmAJ2inku OXarRVXokkX0fobrOKhkUO TvxPE4kpkpUKjuLQFrWcA8 qngfXVmlWGHwIOO5WPnze1 04IGH7WEvcDlcqZAhuOFFw bmNvbnRccGduZGVjXHBsYW luXHBsYWluXGYwXGZzMjRc hBfuuHdjsA0lAjJfEvMpJL pcJC6jHFAmP6edpDTfJLOr AXMoY8qzCoAuvW2rnMtzOF xmczIwIEEuICBSZWNlaXZl URFdnyPgy1VzRDleqhNqTO JhwGLtRAPqQTWqPOSgBH71 P8SnzyVoIHfwKZRtXTQliH 3cUM77uVKppqEdpoVeXcsg x5PeoMGxTevoaAR4DgLwup MzYLK4DJ3edAzyhhA2jIWa sPBvVyFlN38mxgRcDN3rTP U4urthQfM2jMA7nbWcGhJg C77inK0tB7YdNPFif6VxCU irNA2poA7aFZzdhEMxPOBi TVLczYz3YMXdXJUlryNmo1 XukBp9cTOkSYcwQEMviZ3p cF2sPEMcLTTdyaebCWFpSh 9iYSItP3RbkzVoBBbcFWPs tb1kfLdnWSymXiGzOJJiuV xjUIZvmTklieGwjfVbVH7l XJVcJ3Wtb8Tvi86lqgZhZr CgSIGvARBfW1JlcRKaUaHb aXMgYSAwLjIgeCAwLjIgeC ShLyMqA98jyDShRNTnvjxv gTxmg8MoPWRhVKuaXK21NM doaWNoIGlzIGZpbHRlcmVk PNNmHYDytHZjpZO8UZBerG 6atQ54omStwuLJDV8vnFQe OXVshyWVmBrccfFJsvs2XX xsZXMsIFBBLCBIVCAoQVND UClccGFyfQ== MICROSCOPIC DESCRIPTION t2nuuKOmCEOmwJB2JqSoRE (test code = 3371) Wdk5exz7ByvFZiuBAhXZbm zRMnfmUxfs40bXZ9bG18LP 9jYKJkTlF1GCAvgnR1Pqq2 LALjXSUkkBYrL962k3vmr1 excuUlgUJ0jUsyMCNaLTCc NLzlTOJlKlGxLCTtFo1ipQ VkLlxwYXJ9 SPECIAL STUDIES (test y8fbkSGgGNDkq6vaCEMynE code = 3376) FuZzEwMzNcZnRuYmpcdWMx UWtoulZwAWkol3FiO8QfBl AwMFxhbnNpXGRlZmxhbmcx HARhPBB4jwLuPXGxVVsgQI KnNOuiOm8tuBIpxXoxBoPn JYLfv9ooumYEnigtuUp1d8 vxYXEhVmJ2zJSzOFujW9km rdXhbYKaQ1LrhNOdtTk9a7 vvDaDfWtC4vXMsIRjuW0as xkWmwLXgGQHbHIb3fI06PX VnoH1ejDEpDHfxgcDoInP2 FZwpGYTpXrN4TCCucBAcOC QoR6ssEWGhYKzmCMUxUUrb xLSvQBO9sTxzs2I9eNSssJ TczGgqTsFfNeRqPqRIa2Oh WCa5zSqbD9ZyOIStDwI0kB QgUGFyYWdyYXBoIEZvbnQ7 oDengjLbj66qyCLhECXoZA CmEzIlsVyqPKHeGJCJu1Gr kFcaGHA6yYt6sTtdHfuvJL Y5Ivy9OS2cgn90ank8lFno RTHtkqtzPzI5ARylNIWlej vwTMb5ZXwsSQJgyIO6EWFp aTEqN6LwSVFyPH6vjnl8QD O2GVddXJFkCvN5HXPkiJXo DYLroAjiOPadu529QCX1Ic HaLL9aQ3Ofd8U4hN1ujVSs OLXexQDeNjSxONRmuu1cjA QoMQtfp8ScXVN9vhG0pPNq jGAmIHDtMU35Jbwvu8EdVc nes0ZuP08fuAU6AZndv5fx FM0aIhX7wmOlOOnxt0clmA 7bYlH8OOjlGU0qSQ2gEQUo uK6sgflzARHvXlCvdkaoQN MywPoomwLiCt9znRtpDMC0 ERqvT0msnA8qVpP7KRpuG8 wrnD4mTHj2MYwvxEX5UMYl hT4eSF2bvmdzb3nuTGtaGP znARMoiwO6irE9WXKmpPEw L5DvpH3vRRNoXY7hjhxsa7 veBGB5JLxlZMFxRCX2MsUz KAGlc3Mxggg1ZmMry1GojZ QjMYdjV31qc097JPAcsvHo M9fgbEFeuowdbKYxqxonBT xjptU3IEJyYUKnDJhsZZSq XGZzMjJcbGFuZzEwMzNcaG ljaFxmMVxkYmNoXGYxXGxv I5dxIyBhG2ZuBUZcKwWtXX vmYCdzlTUaaEPehDZ2wK9c MZ4kEBCwiNCuT8YjOLQzgi KesZXeKYT5wWUbyLJdSA6e PBrxyAYjg3cyx7AsV6fsuU xehNI9FW5qOMUrCHAgHHam x5IcaK1cXtjriBLwwxycRG xmczIyXGxhbmcxMDMzXGhp O6yvDmQbPOXsiRtjGBubk2 NoXGYxXGNmMlxmczIyXGx0 cmNoXHBhclxwYXJccGxhaW 2zXkShSpRgLexiPC9dOKJc F7cjjZLdVKMgFKQaY7knTh YnsN5joBjmCWdyViEdVzOc LzYMb965sp0xKFVptOWkyt RMiRAgoG8mNCrkDXppVNbw hJDfTYcqn2jlAWFnd8h6gO NaOMJwuvSqo3bxPFtbodEw SAQnlHAayLJoFJOda15pSU bzqMiloXzbOSBpl2BhqObe o9EzBrPbYTebz6OmJ93ueO JvbCBzbGlkZXMgcnVuIGFs f79yq8xvSYGgZmC3tKOqzX E8tKFykXUbx0VwmYlwLKGe w7fmONLdot3ntfzmwCCjw7 HeyX5xrhmoRJbuzOKenvDp KBGtz6w0mZHcVQMbPSRyIL lpdJv9ESBgx263pp9bneI9 kZMwWDX6XQrwQAAvNINdjh UgZXZhbHVhdGVkXHBsYWlu XGYxXGZzMjJcbGFuZzEwMz NcaGljaFxmMVxkYmNoXGYx HXrvH9zgOrOaA8PgPFCwBn FlyYYxQ8gdxCBfSWObPUxi XGYxXGZzMjJcbGFuZzEwMz NcaGljaFxmMVxkYmNoXGYx CWspC6kzSaZzT7AtEUIkKk IgIFxwbGFpblxmMVxmczIy GBcnfssfDASmLWyqD5jaCx VyQYKrnLlkFJoip4WlCMLm UPWlFjimapTxPUs6syLmYK BhclxwbGFpblxmMVxmczIy TFpcbcxmLXKeBIoqB1jbCl OxNPQauYvdHGpmq9ToBUTb XGNmMlxmczIyIEltbXVub2 oaq8EpC6dcmPewrUH1HNZs U5wczBQdqTN1XNU3sV5fVW wzttDgQCWkk7UuUWCbJSSx LlC9bN1pNCQ0QcADtVtrHS BsYWluXGYxXGZzMjJcbGFu ZzEwMzNcaGljaFxmMVxkYm QvBWWeWZwjM6pzXjElQ1Ch JONjLbKhlGexXCcbUHc8Tj xwbGFpblxmMVxmczIyXGxh kjwmWFFyBLicE8jpAoCbGR TxdZxxVLdfg3YsCVQrFFVo MlxmczIyIHMgTWVkaWNhbC TOXT50EOIbDDEiuSenuR4i zRLYHMUwasS6y5F9KHsyTO WyLHw4YCspbwKmZNJmdI4s UELwQK2aVXh3gfAoALRwr8 KcNX0zJHJzpLYbIKL8HRMj c4KpC1Upv7YbRBGtBIGqlr 5icwXtJgBCaZVuOROolu14 BAOzSU6xM2dbSDMcJZLyly QcfEOyz3SrYORieGE5rLOq SC9NZtSNz79lUEIyULDAlm FnIBXbgPmuiWW1hmY5jO4g LiBUaGUgRkRBIGhhcyBkZX Ljmk4qgfXyKOMqJXCil8Ib sLVdbOGicrTnE6Pci5QaWI Rmwb90RWnbkKBzmo44VZ9b B3Oqu0EmkW5lOWtaLIKgn5 BmvHFkqNEsSAHaf6DyT5ul qocrKVourHIkgE6fDYNgNH n1LRHgq2HqYHWhw2RnNgBr rkJbJVJaFBBkWEXgoW76QT Z1zPrrwNchhhTbAI9pNLGs vuMuGXUgMCSdiA8xGSwiwi MkFZMfyhM9n9E6VWumDBTh rfRsFfbqBHN8koIvyeU7cW EaE2idefgrWDujAAJaa9Fm aL4ktPXNtJLfk5NypAIypO ULhWOtVO8lwpUgGM6mSYP8 ODggKENMSUEtODgpIGFzIH Q4DObwJoocYIY1ttLtQUDt y2SkCSfoZ5uzP96qpLlwnX l7dUQvqBuacETnpWAuYRCg vlP0j4W2BKQpu3NrrxugHC BsYWluXGYyXGZzMjJcbGFu ZzEwMzNcaGljaFxmMlxkYm SgSKVtNAypR9zpFdFgIgEh SlrsMRB2zL== Gross assessment was [facility] performed at ([facility], = 2777) Department of Pathology, [address] [place] [address], Technical component was [facility] performed at ([facility], = 2778) Department of Pathology, [address] [place] [address], Professional component [facility] was performed at ([facility], code = 2779) Department of Pathology, [address] [place] [address], [id number] 14:24:00 Test Item Value Reference Range Interpretation Comments Case Report (test code Surgical Pathology = 104) Report Case: [id number] Authorizing Provider: Sarkis Laboy, Collected: 10/01/2020 09:43 AM Ordering Location: [address] Received: 10/01/2020 01:48 PM Pathologist: Pa Peters MD Specimens: A) - Biopsy, Gastric, random biopsy B) - Gastric, gastric erythema biopsy DIAGNOSIS (test code = [id number] 3220) FuZzEwMzNcZnRuYmpcdWMx IHtccnRmMVxlcGljOTIwMl ihccOdIKQiqMItI4Kzarph SSvhLE4uOB3jdPewcATfbR AhALDbNeHgr9rpv686xUXi i3vuKWSWyvlbqTb8jNgjW7 5fk7E3QoxvE88qeLNvWUmg bGFpblxmczIwIEEuIFNUT0 8TN8utMMBYRpOBUUPHCeLS W4VLOOqWDL5ST92CBMvcIe qGPIYRMNB3OPVgnkj9PVRa WXRSTsWBNHaaTZPJQ9ATGE dJVEggTUlMRCBDSFJPTklD YVzCFPMKPWUECScVZ9DLFG DFHwLJErTnQm5IQWnuOD3C ERBGID6SKOKCHQKFSQbKO7 iZCQYzryc7IZDoOLTKGZuQ RYlKRT6NV26YRIXRFXEHEN 3AJHAjM7lRV80YClATVuUU VElWRSBHQVNUUklUSVMgV0 bVYRWTT5QSYZCUS0HXApvS MIlzDHIjnSWoQN0nK1FBLX oHGhFQLLNICbobT5IQLL3u LlESHFOLYgXlKv3APQpcMP UEFO1RFNTZJBfDAU4WZ7UW OQBJW2mzTOPcpBLbIV3sIq DRUCMMSwIfNw3SPVJIY6GV JEUTYIGXZbZIRAQQDP2WQK TyqORzYFQbikTLSaHNXS7Y QUNILCBFUllUSEVNQSwgRU 4IC1EZK1AVVgAPLZXKA8AL MGNUH1FTHWXCXsddBKCygR ZzOI6eU1wDDxXWYxLOYMOO G9YbH3sWWPHPNFhMWYGRYn 4UIXLkDU1DD7DOEeNbG0WS VFJJVElTIEFORCBWRVJZIE WVS6KADYBUQOgZSMKRQINl ciAgICAgICAgICAgICAgLS FWDO1BHlFhWEQZRACATQTG C96CNXTKLG3JRFDSDVHVIO JUTFkgREVOVURFRCBXUElU GJOWIZAYFJHppnl0NJQrVW BXQVJUSElOIFNUQVJSWSBT VEFJTiBORUdBVElWRSBGT1 ShLD7wNDeGL6LNPReUB0Fu M3WWOT7JN19DYGTlljc4LE CtAPAMGBpPVFmXFLVOD7Ep XU9DHRTBSE1HNAJOYMVJVC iTL4dUEKPXITVJFHNPKUKx H3AvC7HSL4eRY39TXRRmkk 32QGV7DvIgf1B9VJE4TTUw TPUgp7ppPMNmbROvYrBbHa NcZnRuYmpcdWMxXGRlZmYw a6kje472hQVbu9cyDQJvHv M1eHKjJBZuaDDlI498RQKq WGffe6aiy0NeKDRnzDSee8 U3QAWKzwyjsBz2rCgjL23w m6Z6LjvnX0rkJCOiIBXeF8 ZuLQ7pMPPnVfz0PCS5VYD1 UZLpPPDpC3PiQL0yUQTnsZ IiITr3e6pbdGcfCQZwYGP9 a0zdJQegacIuPN6tyw2ptK p9a9mhudMrIRVhWAAmhALL VHEvK8VpmTetPr8hvHh3tN kiVfvmQFL3Nfq6XH1pls70 otg8jCdgQMMwvdvcJbP9YU awSLOptutqFKl3JMyzJRQf hPF8FFQawVOqN2CuMUFhOT 4rqvh1SJA4FWazWOMgVvP2 NDBcaGVhZGVyeTcyMFxmb2 86LDS2KsCdVH7lO1Fnd8Z9 zR9iaOPcVNBfaCPjFgHxKQ Nldw7dsOWxFXwzj7ZfFEY0 cpF4fZPkhDDjIFCpBaS8WJ bfCT1udv42HUYfBFT0jy6b bGNccGdicmRyaGVhZFxwZ2 UcPLPvw503TGAcH5UrZJXc g2J2nlTmOeTmHQPgoNH9ru V6MFKrYA7ipczmy0kgIJjo GMarJOFcsvJ9cwG5MHSdqW TmB0LhzD5cPPRlQO5mwgop t7ufXGM1OAqqELTdTYW0Ts EtNRDwz7Qqsoo5VsTzl5Qd pKMyEKmeF14ik278JYWwqg UxY9fulPPeeciqdYGzdgjk FZelpqN7TOYuLZrfooxwBS IzLFcpB6sgQyEuGQRgoYau ONusy0SlYDSvFRVrFaJmbI SaSWWcLrg5VPHsaHCyIRQy NdPbL8rrqraaDmFVVXQrb3 cgJ2gmuASHsLEcR1VnXPyz wsZvWMutBCbpREPvTHO7MO 27AKkpOGYscq41 CPT Code(s) (test code f6irkUOuESUdeOC6UeGvDT = 3351) Poh6etw0GqcMRouVFyXUzo kUXtscDela17sML8pO71KI 8mUQWhXyZ4GWHaqjI4Uml6 MSSsVQGjfCBnW445s0nck7 rjiqDisHF9aXezICUsSPKd YWluXGZzMjAgODgzMDUgWC NoEJU7LMAgJfXCStvcFJA5 CLINICAL HISTORY (test x4hxyEZfZLForWA0DsZsHP code = 3356) Tnh0gdc0UcfFDhfWUcQDjn kXVbqxBkey81xAA4yL63YQ 2bDBPtMcR9WCHnvlE3Lsu3 BQRjNADhgGJuY658m4sml8 nsdyAxvOT5yXxdCSHsBXNp USuvYRRsKrUjqTHgKX1nAR Bhcn0= SPECIMEN SOURCE (test e6nigMAkZMTmyPO6TyBsKJ code = 3377) Phr6iom8ZyjRUscSEfFXxf dGHdgcHwga53zCN2nL81UW 6eBLJmVvG7FPKmfqF4Gjl2 PAQnXOWyrENtW332o1wjf1 wbakSfrKU8uHbfSKWfEVMw CEmvPYEzDbDiBE6aOExwt1 LimLAazVxyYYZVWiBgM9Cl rUIaE1hgRYR1 GROSS DESCRIPTION (test c5vhxGEeWTVfnEWrUeYfVN code = 3366) MuKKDqt1hcMHQawDOjUkRn MzNcZnRuYmpcdWMxXGRlZm Wqi0rda168cFBov8raIKJs RrW1sVMtUKOwxHVtL845c7 iez9mysmZdgXX6LPUuHGB7 GSlxeeRgfcE4GBgbiOVnTu F1CQnqgwAyXLjpuaNoptAf Iul3OSOxD539LVM5rJzxp9 piYMV8CKCqDLTtXmPyTk4q jCSrW250NMJyQNVXKBVzzM t8VMTdvmZyieGmqFVTs414 Z640e2yfMVWeofSqxGaVom tuu8njY205SQRctBTijoNl BlYsDJYviTSzkBC9YMOiFU 4lljbbVmWhXD0zlbciEuHy SI7abxc3EsRdLC3sbjhuWv WxKNssJOSislcyRNKxo3Rs amqkDR9pQ8Glu4R9kI7dvZ SyDCQajWQxZqDcCRIlol6v nXRcGBsih5VcSOP3udH0oA JumCMzJUDwON65Neanc6Yh QwovMFB3CCGuuhIjk6Dec6 gfYrQgfsIvQ2jjU6DnXZLp XAWhQMNuGwUwygVvq7Qur2 ZxpRUonOi3z6euQSRoGSYr gLpyo8scYQP8YPOhW1B8kS Hrg9hrPUygIRTbjXQ4iioh LHngSAVoktP5uqfvDEkjHE QmuSC2hsnmHEeqZIJjAkY7 xtntMVolIKNzYNP9DUmea7 61VAX8JIbhPsyyCOuuFPYn bmNvbnRccGduZGVjXHBsYW luXHBsYWluXGYwXGZzMjRc rEnzfSofjK5fRlTiHwCiGQ ywZW8cIJFgA8xlbVZkYMFh LFKyB9jwAyQhbR8tsZrbUV xmczIwIEEuICBSZWNlaXZl ODSltpXfs2RaXLbsuuPcJM CruXIuQEJzAKAvIDSlAB55 L5BhrzVjDGukETVoPTEocG 1hMR98jCLkxpNbyqVbSuqe u5IkhCTvKftxyHX6ZcFfzc OxATG8ZN4hoLwulaF3fKTz kSRaCpUeR90pvqUwRA9yXB J3epjoEpY7nZU0cnPmDsYp R08meV1uA3LlFUEnz8EzKN efHB2kdX4kPOcqiSHiJDJv CFKviNg6HVMbSZQabuOej9 XevMj6nWMtPHjhQSVlxU9b yF2zNDCuHFVzrtpfLOEmCf 9rLOKeP8GtmzSuSOryROEc sa1ztFgzOLnqPbSyIDHilA hxYXOzvIjzcbTwowGpTD0p YETlJ3Tqy6Gql84ggxBuPt CnPITsANFaY4CrsJVoPqGp aXMgYSAwLjIgeCAwLjIgeC JuBpLyN69uhYMnNNXofzas vVglc2JwDCInWHmbTL86IB doaWNoIGlzIGZpbHRlcmVk KKJcIXXrjNYokZY7TTAohP 7uqP69gsAwqqMKRG7xfVEl UWNldeASzNrqgiDKyny0WL xsZXMsIFBBLCBIVCAoQVND UClccGFyfQ== MICROSCOPIC DESCRIPTION i2dsaARnXFRadSK0LpSvTN (test code = 3371) Zza0bwx2BhnMTgiOSySQpb sGBuwdRgai76kNT2lX46JL 3tDPDlNwH4PUJmwoR4Qcj6 YPBlRQBtwDBeF757q7gcy5 ukryXmqID0dMtbLDGyZZIz XUkkDRCnKqJkSGStGy8bhM VkLlxwYXJ9 SPECIAL STUDIES (test o6rntECvDWDkq3gzZNUnbY code = 3376) FuZzEwMzNcZnRuYmpcdWMx DIdgsnMpPNqdw4MpD4AyIt AwMFxhbnNpXGRlZmxhbmcx GLOhUIJ3giKuIURoTZqrUT FxHBasFu4ptNCbrHkgBvPl UKRdj2fgvhLLywpufDu6v2 imHEAiEgE4gPJrHRwsY4de qlUdjLRwE1ArfXWizWb9d5 tcSyTsYhE7mLGcMXhyY8sc dqLriJDqDXWkZOu0oL90GS PtrX8rdNTiYHohrdYlQjQ5 ENbwOHZkMmQ1JYNrsGYoVU InN3eiLXSgTOjvBOTcCGhf wQIrSHF2fZwgb3B7hZVtyZ OzpKzgMsZsJlFrDuIBb4Lj KKz3uEevF8QhGBCvDoJ9qQ QgUGFyYWdyYXBoIEZvbnQ7 jXbzorVbx93prTGsWENsJF HoFwWwwXulSOCeXRYWn4Qo aTaxQJI9iNa7oNkrSjfsTZ V3Vdr5OE4zak76rrg7uBky MMSucxirPfR5ZEofZBOtut zfPJo4CDbaDLVmnQK1GIIe tQGcQ4NlCWPiHX0becz3QX T9LUqhFFMxTmR7CGWpiMOr ZNQphQomFSykm247YXQ8Ph ZmRK0pF6Aih3Z8mP0znEVg QEWlmWCtUuZmXCYgch2rbF YuIMxcz4UdCQU4zrN0jTHs kFPoTGJoOC20Zkqud9WfWu zxu6UfM11vmNF7IIlzc2jl SL1eCpZ2hlQkIUlot1fwbG 5pOaE7CYggJN7xNA7hDXSj pF1wtkawSBIgXoGojqicDX AmjSmifaTwPv6dfLdwKJK9 IQafI4xzsV7pWsQ3OIhkV9 syuK7nIBq7ULzgrUK1QTOw uK8bPG3mmheaa1lhVDgiOV zrZSFoqmX5qeD5HFQizDSj H9JogR2xPADtKU1qifvss3 njAHY0WUpyGOCvOCD2LfZu UUNzw3Dnoce1QkCon6YquQ OwGOnyJ73lm116BEIbzfUc H0esnIAinjnqeHJygqhfAC gkjaC9UNZdLXDsHRtiUUJz XGZzMjJcbGFuZzEwMzNcaG ljaFxmMVxkYmNoXGYxXGxv O0lrLfAlN9AjGSGiEbZsPB ouSTubvIRbfILdcPE2qL2m PM2uMVQdgRRhM9WkSZQmvz JwcHMnGRE9xUEjxNMpBV9d IOwvwIUyo3wya0OsR8crjQ rseVM6SQ8kSVHfIBCdTOfi f7WddK0qDgkmpSCnsgfzYI xmczIyXGxhbmcxMDMzXGhp F4wgKhEhUHGqiFnfXYysi8 NoXGYxXGNmMlxmczIyXGx0 cmNoXHBhclxwYXJccGxhaW 6vPjPkZoFrZdkuFH4xHNHy A3orqUKnUUJtEQPgC3ibNd NvfW6slNfyXZqqAnQcVuMp AcYIx324fe1rLAWhfIHlgx OAeWIysW1tBAtiWNzrMIai zKQkLXyjh1ykIUPoq7t1aV MzVEBuqtYas8gjPRpjvnOs HKWodXYqvWQlREUul67fDF kckLswbTqhUXWlb7JpnShf b4LaHuDvTDudy3VxN41avN JvbCBzbGlkZXMgcnVuIGFs h97vi2yuYIYwZmV0iEAlzO F1dHVbyIQlp2HsjMgeJOEo b3ouWTEftb9pfhfhyGWff1 ChuI3xdeycLHccpJTmuyIg LAQrp3q4xBYlNWRySWMzOA afxJy9QTNhf726we8smlE8 dAZpOJX5XRucSCIrGKFcmt UgZXZhbHVhdGVkXHBsYWlu XGYxXGZzMjJcbGFuZzEwMz NcaGljaFxmMVxkYmNoXGYx ULiuZ5cnDwYrF9QpDQFhUv DtcGSrD9ognWZhHNIgPAyv XGYxXGZzMjJcbGFuZzEwMz NcaGljaFxmMVxkYmNoXGYx ZXdyV2xyNbExP0GpFNKvBo IgIFxwbGFpblxmMVxmczIy OIhlvrleTQDmTPmcH5miNa EuQWUgzMyfYFvpx2IuUIBn IGYkInzmziWzJIm9btFxFD BhclxwbGFpblxmMVxmczIy CKzhohlqJRFkBDmyS3deIz KfMJCldQrtXRggy3UkFNUh XGNmMlxmczIyIEltbXVub2 srf6GsP1jcgUwirXI6PHRn B3mueFHptQH7JSG5zK9wMQ veurSiRFYmz1UsLBGuCMYu JkZ0eG0aNRU4RpVCdHewNK BsYWluXGYxXGZzMjJcbGFu ZzEwMzNcaGljaFxmMVxkYm RqYAHwOQuvV1afOeWoO1Ch ZVEaXqUrfYqhVMovJSt2Gs xwbGFpblxmMVxmczIyXGxh qjvvFFCuSFgnA4muJqGvHX NlwXqlHDorz9SzXMYtAGLs MlxmczIyIHMgTWVkaWNhbC WNZH80DNKiAZLlxSukrF4q rEROFBEcdcB2b4Z0NJnhPS DkNBt7WSoctiWeEWGbsF6k HCQhSV3yPPx6iiKbYFQih2 WbJL6aCZCfkYFsXRU2WURp u3ZxI8Iql2YfWGUiAGYvvo 3vllZgOiBIvVFgEFEtye77 LNOnQT8tA0eqXTMvSTYomp EdtLWyr1AsVVLnbVE1fURj YT3WDlHHc61cIMEpNXTFuw SaWACagPxhaKM0zaH8kJ1t LiBUaGUgRkRBIGhhcyBkZX Qlxx6qegEdBSSeMLMgd9Mq rCVfkUTapmEeY1Uxw0CqEQ Bxga56DJxmqIPgtp52KN2j O6Mht7AhtL4zAJegTUTqv4 VvhRIujNIhNFOrx6XuY0ns xrxwIToztJMhlW2eDWBqES j7UMJyo8PyISBem3DoSgAv vrEuYQUvBQSlAQZraU17PE Y0bMvxtGaakrCrOF2cTAZt sfQzMLOwABChoY2lKWlzah OnJCEcjrV7t8S2KAawXGJk tyGwPbecVOC4sfAopwW2qB OfF4flvwtrLRszRZUjr5Yq yU8fkAIDtKTmu9UupLLxmI EAvSQuNH5brnGaRX7fRFZ2 ODggKENMSUEtODgpIGFzIH E1PIklVqurUUD2abClTAHt g5PiXKzpT2qyK70ymWofkB t3qHNdqSdhmKZkeFSmQNFy loE7r9Y6SKJkk0CdiknhVH BsYWluXGYyXGZzMjJcbGFu ZzEwMzNcaGljaFxmMlxkYm ElDOWoRIymN0ifToIfPjYm PnawQBP2wZ== Gross assessment was [facility] performed at ([facility], = 2777) Department of Pathology, [address] [place] [id number], Technical component was [facility] performed at ([facility], = 2778) Department of Pathology, [address] [place] [id number], Professional component [facility] was performed at ([facility], code = 2779) Department of Pathology, [address] [place] [id number], [facility] [id number] 14:24:00 Test Item Value Reference Range Interpretation Comments Case Report (test code Surgical Pathology = 104) Report Case: [id number] Authorizing Provider: Sarkis Laboy, Collected: 10/01/2020 09:43 AM Ordering Location: [address] Received: 10/01/2020 01:48 PM Pathologist: Pa Peters MD Specimens: A) - Biopsy, Gastric, random biopsy B) - Gastric, gastric erythema biopsy DIAGNOSIS (test code = [id number]) FuZzEwMzNcZnRuYmpcdWMx IHtccnRmMVxlcGljOTIwMl bkjrFqBDXeiBPxV9Jkioyl BCejMI5tAZ2osQtzuFXabV PeMHIzQpWea7aww152cMDi d5hiEHUJmigocRe8vDsrJ0 3hd1W3BoglC28qiHXpUMfp bGFpblxmczIwIEEuIFNUT0 9TJ5cmRPXFQzRTZNMBZcNI P6ROWAkENH5VG78LVEpxNk lFINCDRVQ3WCHsvdj2XQMm LYUYOiFYTRxjXVACU6GRXC dJVEggTUlMRCBDSFJPTklD GDpRAVUMENPATGuOL4FKGD QWJqNRDhQjCu8OCNpvJH2W WNHYXV1MDXUKQITJHUiII5 lENMAcwxq4DBRbXTXNFExT OAoCJY9DK20GUUPRDNDNYI 9VBPFzV2pQZ35KBcTQZcRE VElWRSBHQVNUUklUSVMgV0 yAVOJEG1SGGRMMI3CEGrcN EQpfEAQpnZFiCK3qL0KKZJ pLAaLZTHDMDcjiY6JCUY3x IxJJTEDKMiIlSn5NCXtcUQ UHXQ8OAHRQQLrNWC6JZ2JH JGAPL9thIHQhsHPsYV1rZn ATKXUQArVuIn9USILLP5JU CACMRGFVUnPIRFQAYL4GRK DzgRVuGYSwikSBEkANMS9Y QUNILCBFUllUSEVNQSwgRU 3JS0PNR9YGYiLURPFAD9EU UOOTY1RGGOMUHzunEWCksX KnKJ2tI0rKNbHFYkRHHPGB R0RqN3jANFFQZLvOOPTDXn 9YUFFdTJ3GQ4SAZcYyL6JP VFJJVElTIEFORCBWRVJZIE PRW4LNVPNAVDiYOUYBGXQv ciAgICAgICAgICAgICAgLS SKAO9XDlHlICYRANKIDRWK W69SWCMNOV7CAFPEYLDQSN JUTFkgREVOVURFRCBXUElU HYZJESFHLMOcvuk2OHRxXY BXQVJUSElOIFNUQVJSWSBT VEFJTiBORUdBVElWRSBGT1 GbNP5gKNuQW3NJUYzKD1Qk R1KFJL7PT24BYJWlstm7PP HeDGVIUTqRKEbMKASFH1Iv UG8DOLXCPC4JRVMINZEPJW qUA0yKKBUYHLFLXLJRMQOa V7EtE4DZD2zME27XXVTtbx 36WHO7WuGbr3F5YXF8UASf VETzn9efKDMycDCzUyLePx NcZnRuYmpcdWMxXGRlZmYw j8kxi661nFZle8yqHHNvAx V6nMZgPESunEMvC414FXLq BVwrl1elp8TrWIYgcOWeq7 Y4ATZVvhafjFf5vPqcU22p l1M6IpsmE6hwMZFqUEQmA5 VyCE8iDOGwLew8PIT6TOU8 YXUtLJIcX6LvIR7hWRXzmV CwFPk1v0oouBkaQVLvGRW6 c1lwLGcggxHpYO0cdt8frO i8q7ikonWsLHCeKSSzdDSW ESBeJ0CotXxcLo2dlWy3vJ eyUznvXVF2Yqy3UW9zyu39 rpv2kCngAAJjgufgBzU3HL guVYRdgzehJGi1DIztKTQo mUE8PYJxiMTvG0PeZTZhPG 3ioyj6STG2YZeuQEDiMzA2 NDBcaGVhZGVyeTcyMFxmb2 82ZDQ3CzTdCG6pG2Vwk1W4 xA0izQYeUDZrvIYzZfQzOK Bazn0sdZXlEPiio5TsEDU3 dxV4pLNvuDXuHKQuQvI2YW riMQ1iex04YHAnNDQ6ii5g bGNccGdicmRyaGVhZFxwZ2 UbIZYga943NKMqB2IpYVSh q7L6czAnKrTgOJWgrGL5cl K2ITEqMJ0iroroq8iqVPrf KBqeBBBvveB5wbT6EPAsuF HzS0BpgX4tYGUcHL2ukjkj p6fiFJX0VJqmZSGaUQL4Ht ZxDZLlf5Ihzml9MyFxb7Gy nUDoKJsmV35oq467VXQode FyT5fseEOgmrftyPOqszjz RFwdxlJ0XUFhVKiihftgMS OzHJamD5gpLmNeEMUwmLdy ACclg1BnCEKyYERnHxXtfV ZaJDVrKah0SELvcAZxBEQr WwPfZ1cprfytBpULZXWxa8 puO8filEFJgYJtM1XhNOli owRlSGvpBNjoSPQmLRV7PL 59QGepBHPhvz74 CPT Code(s) (test code b3ztdVYkVPFvlOW3ZrWkYP = 3357) Frs5all7FodALchGCpPDxt nVVfiqFyyp16oQP7wQ84XY 9bJKDyHoF6EQGvfiJ1Wnz7 TRWcUQYfzGQnT120f6txu4 hoyiZrnAN8cIirZKYrIQPk YWluXGZzMjAgODgzMDUgWC VwROW6CHApGrWXSkokTPZ5 CLINICAL HISTORY (test l8xabXIuXLGqqIC3UeFtOX code = 3356) Cba3zcm2HimZSvkDYsVVsw uPSeplQbew53pCN9hF12ZE 8eTZPxGaJ3PAYnchY7Isp7 CARoKTZwrRQtR719g2iyw0 ejfbEdtVN4wZlwGHLoLZNb PDbpIODnYzCcfAVmAB4rBS Bhcn0= SPECIMEN SOURCE (test k8lqeDDzTKSbvGO6MnFjIK code = 3377) Pag5hmo2OfyMVjhGFnHMtr sXNzvcNwfi43gCT2rF52HE 9tGZQuFaR6OYKnugR3Ypl2 WIEpXPIzbOJjP785p5pbc4 xevvJddBO5xMjeBRCuLRTl IZxwTPFpAfKqCI7mABrrn9 UigBFptQinOUHGBwAzI9Wc oBBnZ1opCBU4 GROSS DESCRIPTION (test u7yxtTJcETEkwGBtKzGjPT code = 3366) ZiOOHvb6woLNRcwTIpNiYd MzNcZnRuYmpcdWMxXGRlZm Uhq3vsm965xIHrs2koWOSn SpG6eKFzBTLtfNWpR167k4 clo6awqbFtrIV1FELaKFP8 MFudeuRnuzR6OKdqrXTuDz X5KCitfoPtSShrtiByvfCc Xod2HTElK244YSK8cYddx6 leWKU7MFVzVYJdJpFgKo3f uPNkD937MYUcEZHOQZPefI y9BZOqddHmnqNgrIQIu737 V516h2feGMRkbuJfjWpUfc bin9bjN787OEAeiJWluhXs BbFyDDAasALtzOY6SBYzGZ 8kckzxKvHpWW2gogcxItPr YJ5xqvl5BnMhJL4ewrpiBf GtNFlyOHTizogpFEKth4Wq anljTG0gM4Lyy2I6fD6odO DmSABhyUMmFoCnAXHemg2e pMOnVEgff4MiKAY6rtX1tM UueLXpRMGxZM82Edmyp7Ui KotcPRV3ZWGbxeUku2Wsa6 lxWrTfvlCnS0noE1GfDLLt XDUeZQFnKkZroaUak0Evp1 TqvRQwbEv2v9abWHLdHLQt rZlrx9tuHXY6ZXNbK9O6qU Dag3vsTEjdQSIpcMX6lmeq VYtcUAAtghI0tlybMMewJR KwrUZ6oszzZEohNYCnXnO8 avhkFIvlBMRdSZY3CLcwz3 14RXU0VAsnGefyFEjkJLXa bmNvbnRccGduZGVjXHBsYW luXHBsYWluXGYwXGZzMjRc nCxgdFofuK9tYxVwQmIfCP qbZK5iBZXpE9vnoHDqJVZu JDFuH7xsZeQxnE9lzChzDY xmczIwIEEuICBSZWNlaXZl UZIqtcCzm6JyZLknpfMyJY PjuOLdWLDzCSIeWHNyKT30 V5RknkUbFZjkNHVmNUWkvP 1wYH84nBMwgsUdtsBsRcqj d0SssZXwBxqkzAE0QrHjmy OkVQH1UC5mpJptaiI2hHOd kRHxRvOqB80rbbIfUJ7iGC N1caewJqH3qGI0nbNwXaUs X27eqD7uD9EpOLJtr4UtQL deRP1cmN0nJTvctWBpDXAx SYHecOb4TTJdWABhkfBbw1 GnaHp8zHRtUJtcENHubB9t sX7aRPSnXKNuizolNNFfLe 4vQQGdX4JltsPtCDaaMBHc yu6jqQldHOxsSjHdQFHtpS ijNYPwlAyiidVimwWbVB1c UQZrX3Cwt5Gws85metZoSj AdDRJiGSJxW6UroFIlOsWz aXMgYSAwLjIgeCAwLjIgeC ZqTvCuU73gpHJfBZNjoefh wXwup1GoYJAaARirMP62OS doaWNoIGlzIGZpbHRlcmVk YQGsFPUwtNYbmRK9KANbqL 5itX28tmOwflBESN1gdEEi GZJcgmSCqDfadnLYgav5AD xsZXMsIFBBLCBIVCAoQVND UClccGFyfQ== MICROSCOPIC DESCRIPTION p4mmcIEcNFXqdIG3WlGsFV (test code = 3371) Dgz4zew1PnoLWktZIhGLef vEEfxhJyec48zAP2kX34DR 3hMUWmZxL4DAAwdjH6Awi1 UKXzXMPckXHsQ614h9wjh5 rtwkUdmFD9mPwfQWEbJMGg HRoiSOOyBuGqITPzGu4zcB VkLlxwYXJ9 SPECIAL STUDIES (test f3tfyOIaQZMyo3yyQJUmrC code = 3376) FuZzEwMzNcZnRuYmpcdWMx PVtyfuRhNInku4QeK1GbUq AwMFxhbnNpXGRlZmxhbmcx VRRoQPE8nkDxJGZrZZguPQ AbXLcfBq9yfTZtcRvrSiLj VWNpm7wfidZVovognQb3a7 yjSJHuPoD8kLYyMQrhF9bp sdXdyKBaQ3LaoKLpsBz5d3 pbWmUgYpQ4nWLtZNzjV2qu hiUzwCVbNHCkTEg0gC63BR IyhV4zmUKqFPqikbIbPxD7 ATbkOKIfPoD9MJZuwXRiTE UmE8neQFKrJBykWLPvONmv lXSoWWM3oWsey9S2eWHirG GxtVrpFhNvFeUcQjEZv3Eu ZPl3nYzlX4HxHQPaRmN7sV QgUGFyYWdyYXBoIEZvbnQ7 lGfkqbThy84fyVDaZBLrYK YxKgTnaJikBETgXPGXu7Cx fLvvBOR0mHo2lZlpBfkoWX J1Ywa7LT6txl62ybl9qRzt UMJodqrpYeU6ANiqJAAnhp maIWx3RXszUPQmxDC8ACId wPQjS2XfSSUbAN7bcql7TO G1FAtkJWCkHfX0PNYvwTVr NNFurXzrLCdwu864RJU5Hg CeMQ0iD6Wlj8J2uS0bnXOz NSVnuQAzDcLdCFOhtu1qzE XqGSykr3ZjYBN7kcE2lBDk jKNmHSOgZW46Jbxyu0BnVn tbg4QlI33dzHS5WVptm0bz ZZ8cGiG9ouYnPVmto0zsrM 8uSgS1RYwcAZ3vMW7xDFHd lK7hculePLMuAbIhhqfoLF PuhQddixUaZo0kcWdlEIH4 OUtbF7yszE4gOjT2FQwhV7 htmL0qORi7ULdamGG2FZOz aM2hWR8tsjmwy0lvSIhdEF mqBDPjwkB7ffV3PUBwiNRc Y7CuaB6oZNOoUS6mnifns4 bgUCH6YCmpXDHjWMV6RdFo AEXeu7Pmmzw0TnJlz4PlgP ZfHKcrR74pl198VVMcjjYp A0szmWVzueaqvYTvfyohPG xuqzP9IVDsSKXhWSnzKXFf XGZzMjJcbGFuZzEwMzNcaG ljaFxmMVxkYmNoXGYxXGxv Y5hdItRwX3SvPHFhFdEeTA ccSQgbqEAylNFlsGL7sV8h VK4cXYAhsRMvK4MtYTBjhq RcbNNyGUZ0yGLjmKMaUJ6l WBolpYGek7rnh3FeE8mioP vnpER3TA7uRBSuFBNbMZit s1LkzK8hGlrrpOGxghdnLX xmczIyXGxhbmcxMDMzXGhp B0tpUoTqCGGdyZqiMAumn6 NoXGYxXGNmMlxmczIyXGx0 cmNoXHBhclxwYXJccGxhaW 4nNfFnVvLbPuuwED5rVCDs G5tokSPtSLMkSNIzJ5wfTb ClqJ3jhOfuFJbvUxPwQaLv SqZTm069ss4sMOYmiVYomj NTzJFbzT7nXYjkJTinOHba xOXfMVlla6elVWFra5a4bQ EoDABgfpGxr2adCSizxwUe XAOfuFLoqYTcDPNcd97pLO atmJuatVqbUVNvk0FvtGbo j3BbPlIqQBlfs6EgB76cyI JvbCBzbGlkZXMgcnVuIGFs v45ux3woCLUvSsR0cTQygM N8sWGwgSEzm6CklJbxSTOc t0ijXLJjxx3opxysqOEee4 OcxB3aqnllZPdtcEMflrUm EHQtc1c3gWPyWKCfQZVnXP jzfSy4KABya212uc2qjpB8 wBGcESA5ISydCHHdZLEucz UgZXZhbHVhdGVkXHBsYWlu XGYxXGZzMjJcbGFuZzEwMz NcaGljaFxmMVxkYmNoXGYx CDhsH7swNuDvA6CzMZYtMb VhbMGnB6ypmRCkAXAiHMsk XGYxXGZzMjJcbGFuZzEwMz NcaGljaFxmMVxkYmNoXGYx YGdsL5knEmLvH5TmHXEgNk IgIFxwbGFpblxmMVxmczIy SXliffqmZVUxGZhnP3mbOt PsKLKhpEbbNKxml3YcPNMj ZEHhLjiiygHqIMu9dcKrWK BhclxwbGFpblxmMVxmczIy GYngriofNOCsXEucG5ekQj FiIFFxrAilAZrci3ShDUYp XGNmMlxmczIyIEltbXVub2 fko9CcI1rroAnwvRY8XBVq O8nhgKYcpKJ6NLU3dO8pJK msxaAbDRFwn8VyEBXqDXHa KgH0vX9eLNV5EwJMhHiwGH BsYWluXGYxXGZzMjJcbGFu ZzEwMzNcaGljaFxmMVxkYm TxMIPtWVjaX0ebHqVoS7Fv UYTlFtEatBryPShgXYe4Xx xwbGFpblxmMVxmczIyXGxh ntgfMWKmSDsrC8qkUeXcCI GbrOltMAelr1OxFEOcCSUm MlxmczIyIHMgTWVkaWNhbC WTCC34PHEyIOLagCjlvB2j vEWPAPJiqiL4q9C6MPlhQZ WlFCh7AYikoyKlZOMlgH4g KEUxSF4jNEb7hpDyNOIqv8 NgMQ4wSCXqdPUvCCG5AAVd g5AhF2Eoz7LyRZQdTBQrmy 3nsfGdFkQVqDOuHGIomy11 BOImLS7mI2qnWNUlQABcko HtyNDvu9DbUMGfpEA9yAMh HB4WEwXWb25cJHGmCDPDdy ChDDZmxEknjZW2amM4hZ8p LiBUaGUgRkRBIGhhcyBkZX Zzzn0ouvWdFCPzKCMwt8Ye wUFwoDNarzXhL4Raf6PeUD Snhn66IVydhULsrk41JL1s J2Url1BfsW8vCPjrRTVcy5 NrjKFpxMUoHSUvj8UfT2oh eftlSGowpZIxaY5aJPQrBO y3WBQco6DoKJEso1ReYkGf vrXsJVGnTLGqEBNpzT34DF J1vXadpZobijJeAN4jHGDl djFdOSLhHFOijO5nQYocsa SgVXMkczR9u4F8IOmlHRJr hcNxQcorPCZ0oqIifuY2hB UmR0ddefzzOAtcHNPqw8Fm iR3zlUVDpYCjf0SgdRElbV KEiIEiEM9dzmHwIB0yKIK9 ODggKENMSUEtODgpIGFzIH V3EGrdSbevZFH8goOtWVGs u5AcYSsxJ3ygV79zbImouF u2wSMwlWowsRGxwXStRDYu ukH8t8M0ZTWif5UjzeluKX BsYWluXGYyXGZzMjJcbGFu ZzEwMzNcaGljaFxmMlxkYm UpRLOfIWvfJ5umIvHpQxLm YhpkBJB9uQ== Gross assessment was [facility] performed at ([facility], = 2777) Department of Pathology, [address] [place] [address] 19448, Technical component was [facility] performed at ([facility], = 2778) Department of Pathology, [address] [place] [address] 38954, Professional component [facility] was performed at ([facility], code = 2779) Department of Pathology, [address] [place] [address], [facility] HospitalTISSUE [id number] 14:24:00Surgical Pathology Report Case: [id number] Authorizing Provider: Sarkis Laboy, Collected: 10/01/2020 09:43 AM OrderingLocation: [place] [address] ccu Received: 10/01/2020 01:48 PM Pathologist: Pa [...] OR CARCINOMA Signing Pathologist Direct Phone Line: [phone] signed by Pa Peters MD on 10/02/2020 at 2:24 [id number] X 2, [phone] D2wrsrpbG. GastricB. GastricA. Received in formalin labeled the [...] laboratory testing.[facility], Department of Pathology, [address] [place] [address], [facility], Department of Pathology, [address] [place] [address], [facility] [address], Department of Pathology, [address] [place] [address], JUXN-GLUCOSE [id number] 11:33:00 Test Item Value Reference Range Interpretation Comments POC-GLUCOSE METER 124 mg/dL 70-110 H : TESTED A T [facility] 6720 (BEAKER) (test code = [facility], 1538) 72118: Business Agent/Techni min ID = [id number] for Be noitBraulioa POCT-GLUCOSE [id number] 08:15:00 Test Item Value Reference Range Interpretation Comments POC-GLUCOSE METER 106 mg/dL 70-110 : TESTED A T [facility] 6720 (BEAKER) (test code = [facility], 1538) 39626: Business Agent/Techni min ID = [id number] for Be noit, Emmanuelaira Comprehensive metabolic [id number] 05:17:00 Test Item Value Reference Range Interpretation Comments Protein, Total (test 6.1 See_Comment [Autom ated code = 2885-2) message] The system which generated this result transmit altagracia reference range : 6.0 - 8.3 gm/dL . The reference range was not u sed to interpret th is result as normal/abnormal . Albumin (test code = 2.6 g/dL 3.5-5 L 88542-4) Alkaline Phosphatase 85 U/L 40-150 (test code [...] (test code = 7.7 mg/dL 8.4-10.2 L 36229-6) AST (test code = 17 U/L 5-34 1920-8) ALT (test code = 9 U/L 6-55 1742-6) EGFR (test code = 35 mL/min/1.73 [place] [address]-2) NOT ACCURATE CREATININE CLEARANCE IN PREDICTING GLOMERULAR FILTRATION RATE . ESTIMATED GFR I S NOT APPLICABLE FOR DIALYSIS PATIEN TS. ELIANA (test code = ELIANA) Business Agent ID - EDASI Lab Interpretation Abnormal (test code = 05843-1) [facility] HospitalComprehensive metabolic [id number] 05:17:00 Test Item Value Reference Range Interpretation Comments Protein, Total (test 6.1 See_Comment [Autom ated code = 2885-2) message] The system which generated this result transmit altagracia reference range : 6.0 - 8.3 gm/dL . The reference range was not u sed to interpret th is result as normal/abnormal . Albumin (test code = 2.6 g/dL 3.5-5 L 90216-4) Alkaline Phosphatase 85 U/L 40-150 (test code [...] (test code = 7.7 mg/dL 8.4-10.2 L 27417-0) AST (test code = 17 U/L 5-34 1920-8) ALT (test code = 9 U/L 6-55 1742-6) EGFR (test code = 35 mL/min/1.73 [place] [address]-2) NOT ACCURATE CREATININE CLEARANCE IN PREDICTING GLOMERULAR FILTRATION RATE . ESTIMATED GFR I S NOT APPLICABLE FOR DIALYSIS PATIEN TS. ELIANA (test code = ELIANA) Business Agent ID - EDASI Lab Interpretation Abnormal (test code = 50977-6) [facility] HospitalComprehensive metabolic [id number] 05:17:00 Test Item Value Reference Range Interpretation Comments Protein, Total (test 6.1 See_Comment [Autom ated code = 2885-2) message] The system which generated this result transmit altagracia reference range : 6.0 - 8.3 gm/dL . The reference range was not u sed to interpret th is result as normal/abnormal . Albumin (test code = 2.6 g/dL 3.5-5 L 29551-4) Alkaline Phosphatase 85 U/L 40-150 (test code [...] (test code = 7.7 mg/dL 8.4-10.2 L 22544-6) AST (test code = 17 U/L 5-34 1920-8) ALT (test code = 9 U/L 6-55 1742-6) EGFR (test code = 35 mL/min/1.73 [place] [address]-5) NOT ACCURATE CREATININE CLEARANCE IN PREDICTING GLOMERULAR FILTRATION RATE . ESTIMATED GFR I S NOT APPLICABLE FOR DIALYSIS PATIEN TSRhys ELIANA (test code = ELIANA) Business Agent ID - EDASI Lab Interpretation Abnormal (test code = 54183-5) [facility] HospitalComprehensive metabolic [id number] 05:17:00 Test Item Value Reference Range Interpretation Comments Protein, Total (test 6.1 See_Comment [Autom ated code = 2885-2) message] The system which generated this result transmit altagracia reference range : 6.0 - 8.3 gm/dL . The reference range was not u sed to interpret th is result as normal/abnormal . Albumin (test code = 2.6 g/dL 3.5-5 L 28203-9) Alkaline Phosphatase 85 U/L 40-150 (test code [...] (test code = 7.7 mg/dL 8.4-10.2 L 86752-2) AST (test code = 17 U/L 5-34 1920-8) ALT (test code = 9 U/L -55 1742-6) EGFR (test code = 35 mL/min/1.73 [place] [address]-6) NOT ACCURATE CREATININE CLEARANCE IN PREDICTING GLOMERULAR FILTRATION RATE . ESTIMATED GFR I S NOT APPLICABLE FOR DIALYSIS PATIEN TSRhys ELIANA (test code = ELIANA) Business Agent ID - EDASI Lab Interpretation Abnormal (test code = 64922-4) [facility] HospitalCOMPREHENSIVE METABOLIC [id number] 05:17:00 Test Item Value Reference Range Interpretation [...] S NOT APPLICABLE FOR DIALYSIS PATIEN TS. Business Agent ID - EDASICBC W/PLT COUNT & AUTO [id number] 04:32:00 Test Item Value Reference Range Interpretation [...] PERCENT (BEAKER) (test code = 2801) POCT-GLUCOSE [id number] 21:36:00 Test Item Value Reference Range Interpretation Comments POC-GLUCOSE METER 146 mg/dL 70-110 H : TESTED A T [facility] 6720 (BEAKER) (test code = DEVON Serrato [facility], 1538) 51526: Business Agent/Techni min ID = [id number] for Johana Vasquez Hemoglobin [id number] 15:28:00 Test Item Value Reference Range Interpretation Comments Hemoglobin A1C (test code = 4548-4) 5.6 % 4.3-6.1 Lab Interpretation (test code = Normal 06449-3) [facility] HospitalHemoglobin [id number] 15:28:00 Test Item Value Reference Range Interpretation Comments Hemoglobin A1C (test code = 4548-4) 5.6 % 4.3-6.1 Lab Interpretation (test code = Normal 76494-5) [facility] HospitalHemoglobin [id number] 15:28:00 Test Item Value Reference Range Interpretation Comments Hemoglobin A1C (test code = 4548-4) 5.6 % 4.3-6.1 Lab Interpretation (test code = Normal 58519-9) [facility] HospitalHemoglobin [id number] 15:28:00 Test Item Value Reference Range Interpretation Comments Hemoglobin A1C (test code = 4548-4) 5.6 % 4.3-6.1 Lab Interpretation (test code = Normal 27097-4) [facility] HospitalHEMOGLOBIN [id number] 15:28:00 Test Item Value Reference Range Interpretation Comments HEMOGLOBIN A1C (BEAKER) (test code = 5.6 % 4.3-6.1 368) CBC W/PLT COUNT & AUTO [id number] 12:44:00 Test Item Value Reference Range Interpretation [...] PERCENT (BEAKER) (test code = 2801) POCT-GLUCOSE [id number] 11:11:00 Test Item Value Reference Range Interpretation Comments POC-GLUCOSE METER 125 mg/dL 70-110 H : TESTED A T [facility] 6720 (BEAKER) (test code = [place], 1538) 19929: Business Agent/Techni min ID = [id number] for BE LL, BEAULA Vancomycin level, [id number] 10:39:00 Test Item Value Reference Range Interpretation Comments Vancomycin Rm (test 4.8 ug/mL code = 78923-8) ELIANA (test code = Reference Range: No ELIANA) NormalsOperator ID - COLBY [facility] CenterVancom[facility] level, [id number] 10:39:00 Test Item Value Reference Range Interpretation Comments Vancomycin Rm (test 4.8 ug/mL code = 70173-5) ELIANA (test code = Reference Range: No ELIANA) NormalsOperator ID - COLBY [facility] CenterVancomycin level, [id number] 10:39:00 Test Item Value Reference Range Interpretation Comments Vancomycin Rm (test 4.8 ug/mL code = 98485-5) ELIANA (test code = Reference Range: No ELIANA) NormalsOperator ID - COLBY [facility], [id number] 10:39:00 Test Item Value Reference Range Interpretation Comments Vancomycin Rm (test 4.8 ug/mL code = 09193-9) ELIANA (test code = Reference Range: No ELIANA) NormalsOperator ID - COLBY [facility] HospitalY[facility] LEVEL, [id number] 10:39:00 Test Item Value Reference Range Interpretation Comments VANCOMYCIN RANDOM (BEAKER) (test 4.8 ug/mL code = 523) Reference Range: No NormalsOperator ID - COLBY CPOCT-GLUCOSE [id number] 08:38:00 Test Item Value Reference Range Interpretation Comments POC-GLUCOSE METER 119 mg/dL 70-110 H : TESTED A T [facility] 6720 (BEAKER) (test code = [place], 1538) 98259: Business Agent/Techni min ID = [id number] for BARBARA FRIEDMAN SARS-CoV2/RT-PCR (Asymptomatic ONLY)2020-10-01 08:13:00 Test Item Value Reference Range Interpretation Comments SARS-COV2/RT-PCR Negative Not Detected, (test code = Negative, See 29397-3) external report for linked test SARS-COV-2 [facility] PERFORMING LAB (test code = 77463-8) ELIANA (test code = Negative result for [...] of the Act. Fact Sheet for Healthcare Providers:https://www.[employer]/sites/default/f dorys/product/documents/F act_Sheet_HC_Providers_L zma_HPIK-ThR-2.pdf Fact Sheet for Healthcare Patients:https://www.[employer].Roller/sites/default/fi les/product/documents/Fa ct_Sheet_Patients_Lyra_S ARS-CoV-2.pdf Performing Laboratory:[facility] [place] [address] [facility] (Asymptomatic ONLY)2020-10-01 08:13:00 Test Item Value Reference Range Interpretation Comments SARS-COV2/RT-PCR Negative Not Detected, (test code = Negative, See 24871-3) external report for linked test SARS-COV-2 [facility] PERFORMING LAB (test code = 18062-4) ELIANA (test code = Negative result for [...] of the Act. Fact Sheet for Healthcare Providers:https://www.[employer]/sites/default/f dorys/product/documents/F act_Sheet_HC_Providers_L dac_SIHD-OsL-1.pdf Fact Sheet for Healthcare Patients:https://www.[employer]/sites/default/fi les/product/documents/Fa ct_Sheet_Patients_Lyra_S ARS-CoV-2.pdf Performing Laboratory:[facility] [place] [address] [facility]ARS[facility] (Asymptomatic ONLY)2020-10-01 08:13:00 Test Item Value Reference Range Interpretation Comments SARS-COV2/RT-PCR Negative Not Detected, (test code = Negative, See 07984-2) external report for linked test SARS-COV-2 [facility] PERFORMING LAB (test code = 62984-4) ELIANA (test code = Negative result for [...] of the Act. Fact Sheet for Healthcare Providers:https://www.inWebo [employer] idel.com/sites/default/f dorys/product/documents/F act_Sheet_HC_Providers_L jyi_VQGY-IiQ-5.pdf Fact Sheet for Healthcare Patients:https://www.james del.com/sites/default/fi les/product/documents/Fa ct_Sheet_Patients_Lyra_S ARS-CoV-2.pdf Performing Laboratory:[facility], [place] [address] [place], [place] [address]ARS-CoV2/RT-PCR (Asymptomatic ONLY)2020-10-01 08:13:00 Test Item Value Reference Range Interpretation Comments SARS-COV2/RT-PCR Negative Not Detected, (test code = Negative, See 86563-7) external report for linked test SARS-COV-2 [facility] PERFORMING LAB (test code = 42662-0) ELIANA (test code = Negative result for [...] of the Act. Fact Sheet for Healthcare Providers:https://www.[employer] idel.Roller/sites/default/f dorys/product/documents/F act_Sheet_HC_Providers_L jyx_TZUI-DoS-0.pdf Fact Sheet for Healthcare Patients:https://www.[employer].Roller/sites/default/fi les/product/documents/Fa ct_Sheet_Patients_Lyra_S ARS-CoV-2.pdf Performing Laboratory:[facility] [place] [address] [facility]ARS[facility]OV2/[facility] ([facility])2020-10-01 08:13:00 Test Item Value Reference Range Interpretation Comments SARS-COV2/RT-PCR (test Negative Not Detected, Negative, code = 2238621) See external report for linked test SARS-COV-2 PERFORMING LAB [facility] (test code = 2749722) Negative result for this test determines that [...] 564(g) of the Act.Fact Sheet for Healthcare Providers:https://www.Int[employer].Roller/sites/default/files/product/documents/Fact_Shee u_PG_Vymojfmlm_Cggd_MDTD-LbI-7.pdfFact Sheet for Healthcare Patients:https://www.[employer].Roller/sites/default/files/product/ documents/Qfxv_Csnhc_Pviltrys_Ehwa_FPHH-HgH-1.pdfPerforming Laboratory:[facility], [place] [id number] 06:20:00 Test Item Value Reference Range Interpretation Comments Ferritin (test code = 61.09 ng/mL 5-275 2276-4) ELIANA (test code = ELIANA) Business Agent ID - PIAYA L Lab Interpretation (test Normal code = 23177-0) [facility] HospitalVitamin B12 and [id number] 06:20:00 Test Item Value Reference Range Interpretation Comments Vitamin B12 (test 267 pg/mL 213-816 code = 2132-9) Folate (test code = 11.30 ng/mL See_Comment [Automa altagracia 2284-8) message] The system which generated this result transmit altagracia reference range : >=7.00. The reference range was not used to interpret this result as normal/abnormal . ELIANA (test code = ELIANA) Business Agent ID - PIAYA L Lab Interpretation Normal (test code = 18371-8) [facility] HospitalFerritin2021-03-19 06:20:00 Test Item Value Reference Range Interpretation Comments Ferritin (test code = 61.09 ng/mL 5-275 2276-4) ELIANA (test code = ELIANA) Business Agent ID - PIAYA L Lab Interpretation (test Normal code = 62139-8) [facility] HospitalVitamin B12 and [id number] 06:20:00 Test Item Value Reference Range Interpretation Comments Vitamin B12 (test 267 pg/mL 213-816 code = 2132-9) Folate (test code = 11.30 ng/mL See_Comment [Automa altagracia 2284-8) message] The system which generated this result transmit altagracia reference range : >=7.00. The reference range was not used to interpret this result as normal/abnormal . ELIANA (test code = ELIANA) Business Agent ID - PIAYA L Lab Interpretation Normal (test code = 29751-3) [facility] HospitalFerritin2021-03-19 06:20:00 Test Item Value Reference Range Interpretation Comments Ferritin (test code = 61.09 ng/mL 5-275 2276-4) ELIANA (test code = ELIANA) Business Agent ID - ASHLEIGH L Lab Interpretation (test Normal code = 12279-3) [facility] HospitalVitamin B12 and [id number] 06:20:00 Test Item Value Reference Range Interpretation Comments Vitamin B12 (test 267 pg/mL 213-816 code = 2132-9) Folate (test code = 11.30 ng/mL See_Comment [Automa altagracia 2284-8) message] The system which generated this result transmit altagracia reference range : >=7.00. The reference range was not used to interpret this result as normal/abnormal . ELIANA (test code = ELIANA) Business Agent ID - ASHLEIGH L Lab Interpretation Normal (test code = 37407-6) [facility] HospitalFerritin2021-03-19 06:20:00 Test Item Value Reference Range Interpretation Comments Ferritin (test code = 61.09 ng/mL 5-275 2276-4) ELIANA (test code = ELIANA) Business Agent ID - ASHLEIGH L Lab Interpretation (test Normal code = 27850-9) [facility] HospitalVitamin B12 and [id number] 06:20:00 Test Item Value Reference Range Interpretation Comments Vitamin B12 (test 267 pg/mL 213-816 code = 2132-9) Folate (test code = 11.30 ng/mL See_Comment [Automa altagracia 2284-8) message] The system which generated this result transmit altagracia reference range : >=7.00. The reference range was not used to interpret this result as normal/abnormal . ELIANA (test code = ELIANA) Business Agent ID - PIEAGLE L Lab Interpretation Normal (test code = 26267-0) [facility] HospitalFERRITIN2021-03-19 06:20:00 Test Item Value Reference Range Interpretation Comments FERRITIN (BEAKER) (test code = 61.09 ng/mL 5.00-275.00 361) Business Agent ID - ASHLEIGH LVITAMIN B12 AND [id number] 06:20:00 Test Item Value Reference Range Interpretation Comments VITAMIN B12 267 pg/mL 213-816 (BEAKER) (test code = 774) FOLATE (BEAKER) 11.30 ng/mL See_Comment [Automated message] (test code = 362) The system which generated this result transmitted ref erence range: >=7.00. The reference range was not used to interpr et this result as normal/abnormal . Business Agent ID - ASHLEIGH Vazquez, TIBC, % sat. (without ferritin)2020-10-01 06:04:00 Test Item Value Reference Range Interpretation Comments Iron (test code = 2498-4) 17.0 ug/dL 40-160 L TIBC (test code = 2500-7) 323 ug/dL 250-450 Iron % Saturation (test 5 % 20-55 L code = 2502-3) ELIANA (test code = ELIANA) Business Agent ID - ASHLEIGH L Lab Interpretation (test Abnormal code = 29989-9) [facility], TIBC, % sat. (without ferritin)2020-10-01 06:04:00 Test Item Value Reference Range Interpretation Comments Iron (test code = 2498-4) 17.0 ug/dL 40-160 L TIBC (test code = 2500-7) 323 ug/dL 250-450 Iron % Saturation (test 5 % 20-55 L code = 2502-3) ELIANA (test code = ELIANA) Business Agent ID - ASHLEIGH L Lab Interpretation (test Abnormal code = 47900-8) [facility], TIBC, % sat. (without ferritin)2020-10-01 06:04:00 Test Item Value Reference Range Interpretation Comments Iron (test code = 2498-4) 17.0 ug/dL 40-160 L TIBC (test code = 2500-7) 323 ug/dL 250-450 Iron % Saturation (test 5 % 20-55 L code = 2502-3) ELIANA (test code = ELIANA) Business Agent ID - ASHLEIGH L Lab Interpretation (test Abnormal code = 31842-4) [facility], TIBC, % sat. (without ferritin)2020-10-01 06:04:00 Test Item Value Reference Range Interpretation Comments Iron (test code = 2498-4) 17.0 ug/dL 40-160 L TIBC (test code = 2500-7) 323 ug/dL 250-450 Iron % Saturation (test 5 % 20-55 L code = 2502-3) ELIANA (test code = ELIANA) Business Agent ID - STEPHENIEEAGLE L Lab Interpretation (test Abnormal code = 96010-3) [facility], TIBC, % SAT. (WITHOUT FERRITIN)2020-10-01 06:04:00 Test Item Value Reference Range Interpretation Comments IRON (BEAKER) (test code = 547) 17.0 ug/dL 40.0-160.0 L TOTAL IRON BINDING CAPACITY 323 ug/dL 250-450 (BEAKER) (test code = 769) IRON % SATURATION (2) (BEAKER) 5 % 20-55 L (test code = 2590) Business Agent ID - PIAYA LPOCT-GLUCOSE [id number] 05:23:00 Test Item Value Reference Range Interpretation Comments POC-GLUCOSE METER 116 mg/dL 70-110 H : TESTED A T [facility] 6720 (BEAKER) (test code [facility], = 1538) 70435: Business Agent/Techni min ID = [id number] for JUNIE ALICIA CBC W/PLT COUNT & AUTO [id number] 03:26:00 Test Item Value Reference Range Interpretation [...] (BEAKER) (test code = 2801) COMPREHENSIVE METABOLIC [id number] 03:22:00 Test Item Value Reference Range Interpretation [...] S NOT APPLICABLE FOR DIALYSIS PATIEN TS. Business Agent ID - DBCBC W/PLT COUNT & AUTO [id number] 20:14:00 Test Item Value Reference Range Interpretation [...] PERCENT (BEAKER) (test code = 2801) POCT-GLUCOSE [id number] 20:12:00 Test Item Value Reference Range Interpretation Comments POC-GLUCOSE METER 134 mg/dL 70-110 H : TESTED A T [facility] 6720 (BEAKER) (test code [facility], = 1538) [id number]: Business Agent/Techni min ID = [id number] for JUNIE ALICIA CBC (HEMOGRAM ONLY)2020-09-30 15:28:00 [...] 0-0 (BEAKER) (test code = 413) POCT-GLUCOSE [id number] 14:32:00 Test Item Value Reference Range Interpretation Comments POC-GLUCOSE METER 106 mg/dL 70-110 : TESTED A T [facility] 6720 (BEAKER) (test code = [place], 1538) [address]: Business Agent/Techni min ID = [id number] for CHUY SWANN HEMOGLOBIN [id number] 11:57:00 Test Item Value Reference Range Interpretation Comments HEMOGLOBIN A1C (BEAKER) (test code = 5.6 % 4.3-6.1 368) U/S, ABDOMINAL, [id number] 11:53:00Abdomen limited area? Add comment if clarification is needed.->Right upper quadrantReason for exam:->liver cirrhosis; [facility] : 1950 Sex: MFINAL [...] MDReport Verified Date/Time: 09/30/2020 11:53:08 US abdomen [id number] 11:53:00Interface, External Ris In - 09/30/2020 11:55 [...] signedby: CAITY HERNADEZ MD on 09/30/2020 11:53 [id number] 11:53:00Interface, External Ris In - 09/30/2020 11:55 [...] signedby: CAITY HERNADEZ MD on 09/30/2020 11:53 [facility] [id number] 11:53:00Interface, External Ris In - 09/30/2020 11:55 [...] Signed: Caity Hernadezort Verified Date/Time: 09/30/2020 11:53:08 Electronically signedby: CAITY HERNADEZ MD on 09/30/2020 11:53 [facility] [id number] 11:53:00Interface, External Ris In - 09/30/2020 11:55 [...] signedby: CAITY HERNADEZ MD on 09/30/2020 11:53 [facility] + Reflex to [id number] 10:53:00 Test Item Value Reference Range Interpretation Comments Color, UA (test code Light Yellow = 5778-6) Clarity, UA (test Clear code = 5767-9) Specific [place], UA 1.014 1.001-1.035 (test code = 5811-5) pH, UA (test code = 6.0 5.0-8.0 5803-2) Protein, UA (test 200 mg/dL Negative A code = 60939-6) Glucose, UA (test 50 mg/dL Negative A code = 365) Ketones, UA (test Negative Negative code = 2514-8) Bilirubin, UA (test Negative Negative code = 12979-9) Blood, UA (test code Small Negative A = 84944-1) Nitrite, UA (test Negative Negative code = 5802-4) Leukocytes, UA (test Negative Negative code = 5799-2) Urobilinogen, UA 0.2 mg/dL 0.2-1 (test code = 94207-1) RBC, UA (test code = 1 See_Comment [Autom ated 32802-9) message] The system which generated this result [...] . Bacteria, UA (test Few code = 74068-8) Mucus (test code = Few 8247-9) Squam Epithel, UA 1 See_Comment [Automate d (test code = 77846-1) messag e] The system which generated this result transmit altagracia reference range : /HPF. The reference range was not used to interpret this result as normal/abnormal . Hyaline Casts, UA 6 See_Comment [Automate d (test code = 00295-7) messag e] The system which generated this result transmit altagracia reference range : /LPF. The reference range was not used to interpret this result as normal/abnormal . Specimen Source (test code = 2795) ELIANA (test code = ELIANA) Business Agent ID - [auto]Business Agent ID - tech Lab Interpretation Abnormal (test code = 26995-5) [facility] Culture 2020-09-30 10:53:00 Test Item Value Reference Range Interpretation Comments Color, UA (test code Light Yellow = 5778-6) Clarity, UA (test Clear code = 5767-9) Specific [place], UA 1.014 1.001-1.035 (test code = 5811-5) pH, UA (test code = 6.0 5.0-8.0 5803-2) Protein, UA (test 200 mg/dL Negative A code = 71345-4) Glucose, UA (test 50 mg/dL Negative A code = 365) Ketones, UA (test Negative Negative code = 2514-8) Bilirubin, UA (test Negative Negative code = 09267-9) Blood, UA (test code Small Negative A = 87419-6) Nitrite, UA (test Negative Negative code = 5802-4) Leukocytes, UA (test Negative Negative code = 5799-2) Urobilinogen, UA 0.2 mg/dL 0.2-1 (test code = 95044-7) RBC, UA (test code = 1 See_Comment [Autom ated 92366-8) message] The system which generated this result [...] . Bacteria, UA (test Few code = 21538-3) Mucus (test code = Few 8247-9) Squam Epithel, UA 1 See_Comment [Automate d (test code = 18583-9) messag e] The system which generated this result transmit altagracia reference range : /HPF. The reference range was not used to interpret this result as normal/abnormal . Hyaline Casts, UA 6 See_Comment [Automate d (test code = 14382-1) messag e] The system which generated this result transmit altagracia reference range : /LPF. The reference range was not used to interpret this result as normal/abnormal . Specimen Source (test code = 2795) ELIANA (test code = ELIANA) Business Agent ID - [auto]Business Agent ID - tech Lab Interpretation Abnormal (test code = 64246-3) [facility] Reflex to Culture 2020-09-30 10:53:00 Test Item Value Reference Range Interpretation Comments Color, UA (test code Light Yellow = 5778-6) Clarity, UA (test Clear code = 5767-9) Specific [place], UA 1.014 1.001-1.035 (test code = 5811-5) pH, UA (test code = 6.0 5.0-8.0 5803-2) Protein, UA (test 200 mg/dL Negative A code = 35362-0) Glucose, UA (test 50 mg/dL Negative A code = 365) Ketones, UA (test Negative Negative code = 2514-8) Bilirubin, UA (test Negative Negative code = 46758-5) Blood, UA (test code Small Negative A = 40046-1) Nitrite, UA (test Negative Negative code = 5802-4) Leukocytes, UA (test Negative Negative code = 5799-2) Urobilinogen, UA 0.2 mg/dL 0.2-1 (test code = 24625-4) RBC, UA (test code = 1 See_Comment [Autom ated 20032-3) message] The system which generated this result [...] . Bacteria, UA (test Few code = 48196-0) Mucus (test code = Few 8247-9) Squam Epithel, UA 1 See_Comment [Automate d (test code = 23964-6) messag e] The system which generated this result transmit altagracia reference range : /HPF. The reference range was not used to interpret this result as normal/abnormal . Hyaline Casts, UA 6 See_Comment [Automate d (test code = 33158-1) messag e] The system which generated this result transmit altagracia reference range : /LPF. The reference range was not used to interpret this result as normal/abnormal . Specimen Source (test code = 2795) ELIANA (test code = ELIANA) Business Agent ID - [auto]Business Agent ID - tech Lab Interpretation Abnormal (test code = 35552-9) [facility] + Reflex to Culture 2020-09-30 10:53:00 Test Item Value Reference Range Interpretation Comments Color, UA (test code Light Yellow = 5778-6) Clarity, UA (test Clear code = 5767-9) Specific [place], UA 1.014 1.001-1.035 (test code = 5811-5) pH, UA (test code = 6.0 5.0-8.0 5803-2) Protein, UA (test 200 mg/dL Negative A code = 86136-3) Glucose, UA (test 50 mg/dL Negative A code = 365) Ketones, UA (test Negative Negative code = 2514-8) Bilirubin, UA (test Negative Negative code = 37734-8) Blood, UA (test code Small Negative A = 83993-9) Nitrite, UA (test Negative Negative code = 5802-4) Leukocytes, UA (test Negative Negative code = 5799-2) Urobilinogen, UA 0.2 mg/dL 0.2-1 (test code = 71571-1) RBC, UA (test code = 1 See_Comment [Autom ated 36182-2) message] The system which generated this result [...] . Bacteria, UA (test Few code = 33104-8) Mucus (test code = Few 8247-9) Squam Epithel, UA 1 See_Comment [Automate d (test code = 79416-8) messag e] The system which generated this result transmit altagracia reference range : /HPF. The reference range was not used to interpret this result as normal/abnormal . Hyaline Casts, UA 6 See_Comment [Automate d (test code = 10943-6) messag e] The system which generated this result transmit altagracia reference range : /LPF. The reference range was not used to interpret this result as normal/abnormal . Specimen Source (test code = 2795) ELIANA (test code = ELIANA) Business Agent ID - [auto]Business Agent ID - tech Lab Interpretation Abnormal (test code = 03063-6) [facility] REFLEX URINE [id number] 10:53:00 Test Item Value Reference Range Interpretation [...] code = 514) SOURCE(BEAKER) (test code = 6153) Business Agent ID - [auto]Business Agent ID - techLactic acid, [id number] 10:00:00 Test Item Value Reference Range Interpretation Comments Lactate, Venous (test code 1.08 mmol/L 0.5-2.2 = 2872) ELIANA (test code = ELIANA) Business Agent ID - STEPHENIEAYA L Lab Interpretation (test Normal code = 78365-6) [facility] HospitalL[facility], [id number] 10:00:00 Test Item Value Reference Range Interpretation Comments Lactate, Venous (test code 1.08 mmol/L 0.5-2.2 = 2872) ELIANA (test code = ELIANA) Business Agent ID - PIAYA L Lab Interpretation (test Normal code = 52561-2) [facility] HospitalL[facility] acid, [id number] 10:00:00 Test Item Value Reference Range Interpretation Comments Lactate, Venous (test code 1.08 mmol/L 0.5-2.2 = 2872) ELIANA (test code = ELIANA) Business Agent ID - ASHLEIGH Day Lab Interpretation (test Normal code = 98785-2) [facility] HospitalL[facility] acid, [id number] 10:00:00 Test Item Value Reference Range Interpretation Comments Lactate, Venous (test code 1.08 mmol/L 0.5-2.2 = 2872) ELIANA (test code = ELIANA) Business Agent ID - ASHLEIGH L Lab Interpretation (test Normal code = 54586-1) [facility] HospitalLACTIC ACID, [id number] 10:00:00 Test Item Value Reference Range Interpretation Comments LACTATE BLOOD VENOUS (2) (BEAKER) 1.08 mmol/L 0.50-2.20 (test code = 2872) Business Agent ID Eulalio SOTELO LCBC W/PLT COUNT & AUTO [id number] 09:53:00 Test Item Value Reference Range Interpretation [...] = 2801) RAD, CHEST, 1 VIEW, NON [id number] 09:06:00Reason for exam:->? [facility] : 1950 Sex: MFINAL REPORT INDICATION: ? sob COMPARISON: None TECHNIQUE: Single fro ntal view of the chest. FINDINGS: Lungs and pleura: Clear lungs. No effusion.Heart and mediastinum: Normal heart size. Unremarkable mediastinal contours.Osseous structures: No acute abnormality.Other: None. IMPRESSION: No acute intrathoracic abnormality. Signed: Nahed Cleary MDReport Verified Date/ Time: 09/30/2020 09:06:18 Reading Location: [facility] Radiology Reading Room XR chest 1 view portable / [id number] 09:06:00Interface, External Ris In - 09/30/2020 9:24 AM CDTFINAL REPORT INDICATION: ? sob COMPARISON: None TECHNIQUE: Single frontal view of the chest. FINDINGS: Lungs and pleura: Clearlungs. No effusion.Heart and mediastinum: Normal heart size. Unremarkable mediastinal contours.Osseous structures: No acute abnormality.Other: None. IMPRESSION: No acute intrathoracic abnormality. Sign ed: Nahed Cleary Verified Date/Time: 09/30/2020 09:06:18 Reading Location: [facility] Radiology [facility] / [id number] 09:06:00Interface, External Ris In - 09/30/2020 9:24 AM CDTFINAL REPORT INDICATION: ? sob COMPARISON: None TECHNIQUE: Single frontal view of the chest. FINDINGS: Lungs and pleura: Clearlungs. No effusion.Heart and mediastinum: Normal heart size. Unremarkable mediastinal contours.Osseous structures: No acute abnormality.Other: None. IMPRESSION: No acute intrathoracic abnormality. Sign ed: Nahed Cleary Verified Date/Time: 09/30/2020 09:06:18 Reading Location: [facility] Radiology [facility] / [id number] 09:06:00Interface, External Ris In - 09/30/2020 9:24 AM CDTFINAL REPORT INDICATION: ? sob COMPARISON: None TECHNIQUE: Single frontal view of the chest. FINDINGS: Lungs and pleura: Clearlungs. No effusion.Heart and mediastinum: Normal heart size. Unremarkable mediastinal contours.Osseous structures: No acute abnormality.Other: None. IMPRESSION: No acute intrathoracic abnormality. Sign ed: Nahed Cleary Verified Date/Time: 09/30/2020 09:06:18 Reading Location: [facility] Radiology Reading [facility] / [id number] 09:06:00Interface, External Ris In - 09/30/2020 9:24 AM CDTFINAL REPORT INDICATION: ? sob COMPARISON: None TECHNIQUE: Single frontal view of the chest. FINDINGS: Lungs and pleura: Clearlungs. No effusion.Heart and mediastinum: Normal heart size. Unremarkable mediastinal contours.Osseous structures: No acute abnormality.Other: None. IMPRESSION: No acute intrathoracic abnormality. Sign ed: Shelly Naheddelbert Pearson Verified Date/Time: 09/30/2020 09:06:18 Reading Location: [facility] Radiology Reading Room [facility] COMPREHENSIVE METABOLIC [id number] 07:47:00 Test Item Value Reference Range Interpretation [...] S NOT APPLICABLE FOR DIALYSIS PATIEN TS. Business Agent ID - [id number] 07:07:00 Test Item Value Reference Range Interpretation Comments PTT (test code = 83451-2) 25.1 See_Comment [ Automated message] The system [employer] generated this result transmitted ref erence range: 22.5 - 3 6.0 seconds. The re ference range was not u sed to interpret this result as normal/abnor mal. Lab Interpretation (test Normal code = 52815-9) [facility] Test Item Value Reference Range Interpretation Comments PTT (test code = 86245-2) 25.1 See_Comment [ Automated message] The system [employer] generated this result transmitted ref erence range: 22.5 - 3 6.0 seconds. The re ference range was not u sed to interpret this result as normal/abnor mal. Lab Interpretation (test Normal code = 41697-1) [facility] HospitalaPTT2021-03-18 07:07:00 Test Item Value Reference Range Interpretation Comments PTT (test code = 09653-5) 25.1 See_Comment [ Automated message] The system [employer] generated this result transmitted ref erence range: 22.5 - 3 6.0 seconds. The re ference range was not u sed to interpret this result as normal/abnor mal. Lab Interpretation (test Normal code = 06758-8) [facility]aPTT[facility] 07:07:00 Test Item Value Reference Range Interpretation Comments PTT (test code = 55022-7) 25.1 See_Comment [ Automated message] The system [employer] generated this result transmitted ref erence range: 22.5 - 3 6.0 seconds. The re ference range was not u sed to interpret this result as normal/abnor mal. Lab Interpretation (test Normal code = 69367-1) [facility] HospitalAPTT2021-03-18 07:07:00 Test Item Value Reference Range Interpretation Comments PARTIAL THROMBOPLASTIN TIME 25.1 seconds 22.5-36.0 ([facility]) (test code = 760) PROTHROMBIN TIME/[id number] 07:07:00 Test Item Value Reference Range Interpretation Comments PROTIME ([facility]) 14.2 seconds 11.9-14.2 (test code = 759) INR ([facility]) (test 1.13 See_Comment [Automat ed message] code = 370) The system [employer] generated this result transmitted ref erence range: <=5.90. The reference range was not used to int erpret this result as normal/abnormal . Effective 12/11/2018: PT Reference Range ChangeNew: 11.9-14.2 Previous: 11.7- 14.7RECOMMENDED COUMADIN/WARFARIN INR THERAPY RANGESSTANDARD DOSE: 2.0-3.0 Includes: PROPHYLAXIS for venous thrombosis, systemic embolization; TREATMENT for venous thrombosis and/or pulmonary embolus.HIGH RISK: Target INR is2.5-3.5 for patients wiht mechanical heart valves.POCT-GLUCOSE [id number] 06:39:00 Test Item Value Reference Range Interpretation Comments POC-GLUCOSE METER 150 mg/dL 70-110 H : TESTED A T [facility] 6720 ([facility]) (test code [facility], = 1538) [address]: Business Agent/Techni min ID = [id number] for ELIDALela YESSENIA JUNIE [id number] 00:00:00Ordered by an unspecified provider.[facility] HospitalEKG-[id number] 00:00:00Ordered by an unspecified provider. [facility] HospitalEKG-[id number] 00:00:00Ordered by an unspecified provider.[facility] HospitalEKG-[id number] 00:00:00 Ordered by an unspecified provider.[facility] ([facility])2020-01-26 13:29:00 Test Item Value Reference Range Interpretation Comments SARS-COV2/RT-PCR (test code = Negative Not Detected, Negative 4010271) SARS-COV-2 PERFORMING LAB [facility] (test code = 3866161) Negative result for this test determines that [...] 564(g) of the Act.Fact Sheet for Healthcare Providers:https://www.inWebo Technologiesidel.com/sites/default/files/product/documents/Fact_Shee k_MQ_Xnlwfdrhv_Mphw_EMLQ-BnR-5.pdfFact Sheet for Healthcare Patients:https://www.Int[employer].com/sites/default/files/product/ documents/Jqtn_Mkron_Djcmxjmr_Vrrz_KFHO-HbJ-8.pdfPerforming Laboratory:[address] [place] [address]
--- NOTE | 2021-03-10 20:08 | RAD REPORT ---
EXAM DESCRIPTION: RAD - Chest Single View - 03/10/2021 7:58 pm CLINICAL HISTORY: SOB COMPARISON: Chest Single View dated 03/04/2021; Chest Single View dated 11/24/2020; Chest Single View dated 11/22/2020; Chest Single View dated 11/18/2020 FINDINGS: Mild bilateral airspace disease, similar to 03/04/2021 The heart size is within normal martinez its.No acute osseous abnormality. No significant pleural effusions or pneumothorax. IMPRESSION: Mild bilateral airspace disease which may reflect multifocal pneumonia. Findings are sim ilar to 03/04/2021.
[2021-03-10 20:39] LABS: Absolute Lymphocytes (CBC) 1.2 K/uL (0.7-4.9); Basophils % 0.6 % (0-1.3); Hematocrit 35.1 % (39.6-49.0); Lymphocytes % 16.3 % (15.3-44.8); MPV 7.6 fL (7.6-11.3); RBC Red Blood Cell Count 4.05 M/uL (4.33-5.43)
[2021-03-10 20:40] LABS: Protime INR 0.94
--- NOTE | 2021-03-10 21:52 | EDPHYS ---
Physician Documentation [facility] Name: Amaury Matamoros Age: 70 yrs Sex: Male : 1950 Arrival Date: 03/10/2021 Time: 16:59 Bed 28 Private MD: Garo Us ED Physician Jose Powell HPI: 03/10 19:40 This 70 yrs old Male presents to ER via Wheelchair with complaints of cp Decreased Appetite - covid+. 19:40 The patient has shortness of breath at rest. cp 19:40 Onset: The symptoms/episode began/occurred gradually. Duration: The symptoms are cp continuous, and are steadily getting worse. Associated signs and symptoms: Pertinent positives: decreased appetite, Pertinent negatives: chest pain, productive cough, fever. Severity of symptoms: in the emergency department the symptoms are unchanged. Patient presents to the emergency department with complaints of increasing shortness of breath. Patient reports known exposure to COVID-19. Patient reports currently hospitalized with symptomatic Covid infection. Patient reports he was tested positive for Covid approximately 1 week ago. Review of the records show patient was seen here on 03/04/2021 and admitted for Covid pneumonia but patient left the hospital. Patient denies having oxygen at home. Patient denies chest pain.. Historical: - Allergies: 17:30 PENICILLINS; sv - PMHx: 17:30 Cellulitis; Diabetes - NIDDM; Hypertension; sv - PSHx: 17:30 Left AKA; sv ROS: 19:45 Constitutional: Positive for Negative for body aches, chills, fever, poor PO intake. cp 19:45 Eyes: Negative for injury, pain, redness, and discharge. cp 19:45 ENT: Negative for ear pain, sore throat, difficulty swallowing, difficulty handling secretions. 19:45 Cardiovascular: Negative for chest pain, edema, palpitations. 19:45 Respiratory: Positive for shortness of breath, at rest. Negative for wheezing. 19:45 Abdomen/GI: Positive for anorexia, Negative for abdominal pain, nausea, vomiting, and diarrhea. 19:45 Neuro: Negative for altered mental status, headache, syncope, weakness. 19:45 All other systems are negative. Exam: 19:50 Constitutional: The patient appears in no acute distress, alert, awake, cp non-diaphoretic, non-toxic, well developed. 19:50 Head/Face: Normocephalic, atraumatic. cp 19:50 Eyes: Periorbital structures: appear normal, Conjunctiva: normal, no exudate, no injection, Sclera: no appreciated abnormality, Lids and lashes: appear normal, bilaterally. 19:50 ENT: External ear(s): are unremarkable, Nose: is normal, Mouth: Lips: dry, Oral mucosa: moist, Posterior pharynx: Airway: no evidence of obstruction, patent. 19:50 Neck: ROM/movement: is normal, is supple, without pain, no range of motions limitations. 19:50 Chest/axilla: Inspection: normal, Palpation: is normal, no crepitus, no tenderness. 19:50 Cardiovascular: Rate: normal, Rhythm: regular, Edema: is not appreciated, JVD: is not appreciated. 19:50 Respiratory: the patient does not display signs of respiratory distress, Respirations: labored breathing, is not present, intercostal retractions, are absent, shallow respirations, that is mild, Breath sounds: decreased breath sounds, that are moderate, throughout, stridor, is not appreciated, wheezing: is not appreciated. 19:50 Abdomen/GI: Inspection: abdomen appears normal, Bowel sounds: active, all quadrants, Palpation: abdomen is soft and non-tender, in all quadrants. 19:50 Back: pain, is absent, ROM is normal. 19:50 Musculoskeletal/extremity: left below the knee amputation. 19:50 Skin: no rash present. 19:50 Neuro: Orientation: to person, place \\T\\ time. Mentation: is normal, Motor: moves all fours, strength is normal. 20:07 ECG was reviewed by the Attending Physician. cp Vital Signs: 17:27 BP 114 / 69; Pulse 94; Resp 30; Temp 97.8; Pulse Ox 80% on R/A; sv 20:31 BP 164 / 85; Pulse 85; Resp 22; Temp 98.6; Pulse Ox 92% on 2 lpm NC; Pain 0/10; mg4 17:27 Pt placed on O2 \\T\\ 4L per NC. O2 sat up to 90%. sv MDM: 17:37 Patient medically screened. marj 20:00 Differential diagnosis: CHF exacerbation, pneumonia, Pneumothorax pulmonary edema, cp Pulmonary Embolism Sepsis Unstable Angina. 23:15 Data reviewed: vital signs, nurses notes, lab test result(s), EKG, radiologic studies, cp plain films. 23:15 Test interpretation: by ED physician or midlevel provider: ECG, plain radiologic cp studies. Counseling: I had a detailed discussion with the patient and/or guardian regarding: the historical points, exam findings, and any diagnostic results supporting the discharge/admit diagnosis, lab results, radiology results, the need for further work-up and treatment in the hospital. Physician consultation: Garo Us MD was called at 22:00, was contacted at 22:00, regarding admission, to the telemetry unit. patient's condition, would like consultation with Dr. DR Childress. 03/10 19:35 Order name: Basic Metabolic Panel cp 03/10 19:35 Order name: CBC with Diff cp 03/10 19:35 Order name: LFT's cp 03/10 19:35 Order name: Magnesium cp 03/10 19:35 Order name: NT PRO-BNP cp 03/10 19:35 Order name: PT-INR cp 03/10 19:35 Order name: Troponin (emerg Dept Use Only) cp 03/10 19:35 Order name: COVID-19 : Document "Date of Symptom Onset" if Symptomatic. cp 03/10 19:35 Order name: Ferritin; Complete Time: 22:57 cp 03/10 23:12 Interpretation: Abnormal: ILSA 1201.9. cp 03/10 19:35 Order name: CRP; Complete Time: 22:57 cp 03/10 22:57 Interpretation: Abnormal: C-REACTIVE PROT 24.60. cp 03/10 19:35 Order name: Influenza Screen (a \\T\\ B); Complete Time: 22:19 cp 03/10 19:35 Order name: Basic Metabolic Panel; Complete Time: 22:57 EDMS 03/10 22:57 Interpretation: Normal except: CO2 15; BUN 62; CRE 3.57; GFR 17; CA 8.3. cp 03/10 19:35 Order name: CBC with Automated Diff; Complete Time: 21:12 EDMS 03/10 21:13 Interpretation: Normal except: RBC 4.05; HGB 12.1; HCT 35.1; PLT 179; MPV 7.6; LISET% cp 77.4. 03/10 19:35 Order name: Liver (Hepatic) Function; Complete Time: 22:57 EDMS 03/10 23:00 Interpretation: Normal except: AST 40; ALK 118; BILID 0.3; ALB 2.7; GLOB 5.3; A/G 0.5. 03/10 19:35 Order name: XRAY Chest (1 view); Complete Time: 21:12 cp 03/10 19:35 Order name: EKG; Complete Time: 19:36 cp 03/10 19:35 Order name: Magnesium; Complete Time: 22:57 EDMS 03/10 19:36 Order name: NT PRO-BNP; Complete Time: 22:57 EDMS 03/10 23:01 Interpretation: Abnormal: NT PRO-BNP 6724. 03/10 19:36 Order name: Protime (+INR); Complete Time: 21:12 EDMS 03/10 19:36 Order name: Troponin (Emerg Dept Use Only); Complete Time: 22:57 EDMS 03/10 22:23 Order name: COVID-19/FLU A+B; Complete Time: 22:57 EDMS 03/10 23:00 Interpretation: Abnormal: SARSCOV2 RT PCR POSITIVE. 03/10 23:24 Order name: CONS Physician Consult ED[facility] 03/11 04:42 Order name: CBC with Automated Diff [facility] 03/11 04:49 Order name: Basic Metabolic Panel [facility] 03/11 04:49 Order name: Magnesium [facility] 03/11 13:59 Order name: Glucose, Ancillary Testing [facility] 03/11 18:57 Order name: Glucose, Ancillary Testing [facility] 03/10 19:35 Order name: Cardiac monitoring; Complete Time: 20:47 03/10 19:35 Order name: EKG - Nurse/Tech; Complete Time: 20:47 03/10 19:35 Order name: IV Saline Lock; Complete Time: 20:47 03/10 19:35 Order name: Labs collected and sent; Complete Time: 20:47 03/10 19:35 Order name: O2 Per Protocol; Complete Time: 20:47 03/10 19:35 Order name: O2 Sat Monitoring; Complete Time: 20:47 03/10 23:24 Order name: Consistent Carb (ADA) 1800 Yaw ED[facility] 03/10 23:24 Order name: Respiratory Therapy Consult EDMS EC:07 Rate is 93 beats/min. Rhythm is regular. NV interval is normal. QRS interval is cp prolonged at 104 msec. QT interval is normal. Interpreted by me. Reviewed by me. Administered Medications: No medications were administered Disposition: 03/11 03:25 Co-signature as Attending Physician, Jose Powell MD I agree with the assessment and rn plan of care. Attestation: The patient's history, exam findings, diagnostics, and a summary of any interventions or procedures was reviewed in detail with Wally BUENO. Disposition Summary: 03/11/21 23:23 Hospitalization Ordered Hospitalization Status: Inpatient Admission(03/11/21 23:23) tt3 Provider: Garo Us(03/11/21 23:23) tt3 Location: Telemetry/MedSurg (Inpatient)(03/11/21 23:23) tt3 Condition: Stable(03/11/21 23:23) tt3 Problem: new(03/11/21 23:23) tt3 Symptoms: have worsened(03/11/21 23:23) tt3 Bed/Room Type: Standard(03/11/21 23:23) tt3 Room Assignment: [facility](03/11/21 23:23) tt3 Diagnosis - Type 2 diabetes mellitus with unspecified complications tt3 - Pneumonia due to SARS-associated coronavirus tt3 - Hypertension secondary to other renal disorders tt3 Forms: - Medication Reconciliation Form tt3 - SBAR form tt3 Signatures: Dispatcher [employer] EDMS Kasia Shukla RN RN sv Woody, Diana, RN RN dw Anderson, Corey, MD MD cha Nieto, Roman, MD MD rn Lasagna, Tonya, RN RN tl1 Page, Corey, PA PA cp Trim, Tyler tt3 Corrections: (The following items were deleted from the chart) 03/10 21:02 19:36 CORONAVIRUS ordered. EDMS EDMS 22:57 22:57 Normal except: CO2 15; BUN 62; CRE 3.57; GFR 17. cp cp 03/11 00:17 03/10 21:51 Telemetry/MedSurg (Inpatient) cp tl1 03/11 00:17 03/10 21:51 cp tl1 03/11 19:28 00:17 [facility] ER HOLD tl1 dw 19:28 00:17 ERHOLD- tl1 dw 23:11 03/10 21:51 Inpatient Admission cp [facility] 03/11 23:11 03/10 21:51 MagenGaro lowe cp [facility] 03/11 23:11 03/10 21:51 Stable cp [facility] 03/11 23:11 03/10 21:[address] [facility] 03/11 23:11 03/10 21:51 have improved cp [facility] 03/11 23:11 03/10 21:51 Standard cp [facility] 03/11 23:11 03/10 21:51 Other viral pneumonia cp [facility] 03/11 23:11 03/10 21:51 SARS-associated coronavirus as the cause of diseases classified elsewhere [facility] 03/11 23:11 03/10 23:[address] [facility] 03/11 23:11 19:28 Telemetry/MedSurg (Inpatient) [facility] 23:11 19:28 403 [facility]
--- NOTE | 2021-03-10 21:52 | ER ---
Nurse's Notes [facility] Name: Amaury Matamoros Age: 70 yrs Sex: Male : 1950 Arrival Date: 03/10/2021 Time: 16:59 Bed 28 Private MD: Garo Us Diagnosis: Type 2 diabetes mellitus with unspecified complications;Pneumonia due to SARS-associated coronavirus;Hypertension secondary to other renal disorders Presentation: 03/10 17:27 Chief complaint: Patient states: "I just feel bad." COVID + 03/06/21. Pt was here a few sv days ago and left. Coronavirus screen: Client denies travel out of the [place] in the last 14 days. Client reports previous positive COVID test result. Ebola Screen: No symptoms or risks identified at this time. Initial Sepsis Screen: Does the patient meet any 2 criteria? RR > 20 per min. HR > 90 bpm. Yes Does the patient have a suspected source of infection? Yes: Other: covid. Risk Assessment: Do you want to hurt yourself or someone else? Patient reports no desire to harm self or others. Onset of symptoms was March 10, 2021. 17:27 Method Of Arrival: Wheelchair sv 17:27 Acuity: ALEJANDRA 2 sv Triage Assessment: 17:27 General: Appears in no apparent distress. uncomfortable, slender, malnourished, sv Behavior is calm, cooperative. Neuro: Level of Consciousness is awake, alert, obeys commands. Respiratory: Respiratory effort is even, unlabored, Respiratory pattern is tachypnea. Historical: - Allergies: 17:30 PENICILLINS; sv - PMHx: 17:30 Cellulitis; Diabetes - NIDDM; Hypertension; sv - PSHx: 17:30 Left AKA; sv Assessment: 20:38 General:. mg4 20:52 Pain: Denies pain. Neuro: No deficits noted. Cardiovascular: No deficits noted. mg4 Capillary refill < 3 seconds Rhythm is sinus rhythm. Respiratory: Respiratory effort is even, labored, Respiratory pattern is regular. GI: No deficits noted. No signs and/or symptoms were reported involving the gastrointestinal system. Abd is soft and non tender X 4 quads. : No deficits noted. EENT: No deficits noted. Musculoskeletal: left below the knee amputation. Vital Signs: 17:27 BP 114 / 69; Pulse 94; Resp 30; Temp 97.8; Pulse Ox 80% on R/A; sv 20:31 BP 164 / 85; Pulse 85; Resp 22; Temp 98.6; Pulse Ox 92% on 2 lpm NC; Pain 0/10; mg4 17:27 Pt placed on O2 \\T\\ 4L per NC. O2 sat up to 90%. sv ED Course: 16:59 Patient arrived in ED. as 17:00 Garo Us MD is Private Physician. as 17:27 Arm band placed on. sv 17:30 Triage completed. sv 17:36 Wally Miles MD is Attending Physician. marj 19:24 Wally Espinosa PA is PHCP. cp 19:42 Jaime Blackmon, COURTNEY is Primary Nurse. ch5 19:43 Jose Powell MD is Attending Physician. cp 19:58 XRAY Chest (1 view) In Process Unspecified. EDMS 21:50 Garo Us MD is Hospitalizing Provider. cp 22:24 Notified ED physician of a critical lab result(s). COVID positive Wally christian notified. 03/11 23:20 Garo Us MD is Hospitalizing Provider. tt3 Administered Medications: No medications were administered Outcome: 03/10 21:51 Decision to Hospitalize by Provider. cp 03/11 21:51 Admitted to Med/surg accompanied by nurse, via wheelchair, room 403, with oxygen, with 3 chart, Report called to COURTNEY Worley Condition: stable Instructed on the need for admit. 23:23 Decision to Hospitalize by Provider. tt3 23:26 Patient left the ED. tt3 Signatures: Dispatcher [employer] EDMS Kasia Shukla RN RN sv Anderson, Corey, MD MD cha Martinez, Amelia as Ballard, Brenda, RN RN bb Page, Corey, PA PA cp Trim, Tyler tt3 Soraya Whiteside RN RN 3 Brandon Pal mg4 Jaime Blackmon, COURTNEY RN ch5 Corrections: (The following items were deleted from the chart) 03/10 17:31 17:27 Chief complaint: Patient states: "I just feel bad." COVID + 03/06/21 sv sv 17:39 17:27 BP 114 / 69; Pulse 94bpm; Resp 30bpm; Pulse Ox 80% RA; Temp 97.8F; Pt placed on sv O2.; sv
[2021-03-10 22:21] LABS: ALT/SGPT 20 U/L (12-78); AST/SGOT 40 U/L (15-37); Albumin 2.7 g/dL (3.4-5.0); Alkaline Phosphatase 118 U/L (45-117); BUN Blood Urea Nitrogen 62 mg/dL (7-18); Bicarbonate 15 mmol/L (21-32); Bilirubin Direct 0.3 mg/dL (0-0.2); Bilirubin Total 0.6 mg/dL (0.2-1.0); Ferritin 1201.9 ng/mL (26-388); Glucose Level 83 mg/dL (74-106); NT PRO-BNP 6724 pg/mL (<125); Sodium Level 136 mmol/L (136-145); Troponin (Emerg Dept Use Only) < 0.02 ng/mL (0.0-0.045)
[2021-03-10 22:22] LABS: SARS-COV-2 RT PCR POSITIVE (NEGATIVE)
[2021-03-10] MEDS ORDERED: ONDANSETRON 4 MG/2 ML VIAL IV PRN (23:19)
[2021-03-11] MEDS: METHYLPREDNISOLONE 40 MG INJ IV SCH ×3 (01:00→16:52)
[2021-03-11 04:27] LABS: Absolute Lymphocytes (CBC) 1.3 K/uL (0.7-4.9); Basophils % 0.8 % (0-1.3); Hematocrit 35.1 % (39.6-49.0); Lymphocytes % 13.7 % (15.3-44.8); MPV 7.5 fL (7.6-11.3)
[2021-03-11 04:49] LABS: Potassium 3.5 mmol/L (3.5-5.1)
[2021-03-11] MEDS: ENOXAPARIN 30 MG/0.3 ML SQ SCH (09:00)
[2021-03-11] MEDS ORDERED: HYDROMORPHONE HCL 0.5 MG/0.5 ML INJ IV PRN (09:42)
[2021-03-11] MEDS ORDERED: METHYLPREDNISOLONE 40 MG INJ ONE ×2 (09:57→17:01)
[2021-03-11] MEDS ORDERED: ENOXAPARIN 30 MG/0.3 ML SQ ONE (09:58)
[2021-03-11] MEDS: HYDROCODONE/APAP 7.5/325 MG TAB PO SCH ×3 (10:00→23:45)
[2021-03-11] MEDS: NA CHLORIDE 0.9% 1,000 ML IV SCH ×2 (10:00→23:45)
--- NOTE | 2021-03-11 10:02 | P.HP ---
Certification for Inpatient Patient admitted to: Inpatient With expected LOS: >2 Midnights Patient will require the following post-hospital care: Home Health Services Practitioner: I am a practitioner with admitting privileges, knowledge of patient current condition, hospital course, and medical plan of care. Services: Services provided to patient in accordance with Admission requirements found in Title 42 Section 412.3 of the Code of Federal Regulations Patient History Date of Service: 03/11/21 Primary Care Provider: Magen Reason for admission: Covid 19, acute on chronic renalfailure History of Present Illness: Patient is an office patient of gegeRhys Crook of PVD, htn kd stage 4. He was tested positive covid this past Sunday -However he refused admission and went home AMA. The patient was perscribed the I-Mask protochol. However he seems not to be able to get it due to unavalible medications in the pharmacy He comes in with complaint of shortness of breath, lack of appetite and generally not feeling well. the patient was started on Solumedrol. Is currently resting in the er. Stable oxygen level on 2 lts NC. His kidney function has worsened. He has a baseline creatine of 2.2. He was at 3.2 last week. Is now at 3.5 Allergies Penicillins Allergy (Intermediate, Verified 03/03/19 18:20) Rash Home Medications: Amlodipine [Norvasc*] 5 mg PO DAILY #30 tab 12/02/20 Gabapentin [Neurontin*] 100 mg PO TID #90 cap 12/02/20 Metoprolol Tartrate [Lopressor*] 25 mg PO BID #60 tab 12/02/20 Metoprolol Succinate 1 tab PO DAILY 02/02/21 Azithromycin [Zithromax] 500 mg PO DAILY 4 Days #4 tablet 02/05/21 Hydrocodone Bit/Acetaminophen [Hydrocodon-Acetaminoph 7.5-325] 1 each PO TIDP PRN 7 Days #20 tablet 02/05/21 Sulfamethoxazole/Trimethoprim [Bactrim Ds Tablet] 1 each PO BID 5 Days #10 tablet 02/05/21 - Past Medical/Surgical History Diabetic: Yes -: Diabetes mellitus type 2, [id number] -: DM-NIDDM -: Alcohol Abuse -: Tobacco Abuse -: Hypertension -: Chronic pain -: Chronic sacral ulcer -: Left Knee Surgery -: Left BKA with Prosthetic blood -: surg wnd on coccyx wound Psychosocial/ Personal History: He is , has 4 children. He is disabled. - Family History Father -: Heart disease, Hypertension, Diabetes, Cancer Mother -: Diabetes, Stroke - Social History Smoking Status: Former smoker Alcohol use: No CD- Drugs: No Caffeine use: Yes Place of Residence: Home Review of Systems General: Weakness, Malaise Respiratory: SOB with Excertion Musculoskeletal: Leg Pain Physical Examination - Physical Exam General: Alert, Mild distress HEENT: Atraumatic, PERRLA, Mucous membr. moist/pink, EOMI, Sclerae nonicteric Neck: Supple, 2+ carotid pulse no bruit, No LAD, Without JVD or thyroid abnormality Respiratory: Clear to auscultation bilaterally, Normal air movement Cardiovascular: Regular rate/rhythm, Normal S1 S2 Gastrointestinal: Normal bowel sounds, No tenderness Musculoskeletal: No tenderness Integumentary: No rashes Neurological: Normal gait, Normal speech, Normal strength at 5/5 x4 extr, Normal tone, Normal affect Lymphatics: No axilla or inguinal lymphadenopathy - Studies Laboratory Data (last 24 hrs) 03/10/21 20:16: PT 10.8, INR 0.94 03/10/21 20:16: WBC 7.50 D, Hgb 12.1 L, Hct 35.1 L, Plt Count 179 D 03/10/21 20:16: Sodium 136, Potassium 4.0, BUN 62 H, Creatinine 3.57 H, Glucose 83, Magnesium 2.0, Total Bilirubin 0.6, AST 40 H, ALT 20, Alkaline Phosphatase 118 H Assessment and Plan - Problems (Diagnosis) (1) Acute on chronic renal failure Current Visit: No Status: Acute Plan: Worsening creatne Will start him on fluids. Consult to dr. Marr. the patient is very non compliant He may need dialysis. This morning he states that he would be willing to have dialysis. However he has a history of changing his mind without reason. 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 He is stable at this point. Will continue oxygen. Consult to Dr. Edge. 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 status Diabetes mellitus complication status: with circulatory complication Diabetes mellitus complication detail: with peripheral angiopathy with gangrene Qualified Code(s): E11.52 - Type 2 diabetes mellitus with diabetic peripheral angiopathy with gangrene (4) Hypertension Onset Date: 04/24/18 Current Visit: No Status: Chronic Plan: continue home medications Qualifiers: Hypertension type: primary hypertension Qualified Code(s): I10 - Essential (primary) hypertension Discharge Plan: Home Plan to discharge in: Greater than 2 days - Advance Directives Does patient have a Living Will: No Does patient have a Durable POA for Healthcare: No - Code Status/Comfort Care Code Status Assessed: No Physician Review: Patient Assessed, Agree with Above Assessment and Plan Critical Care: No Time Spent Managing Pts Care (In Minutes): 75
[2021-03-11] MEDS ORDERED: HYDROCODONE/APAP 7.5/325 MG TAB ONE ×2 (11:00→17:01)
[2021-03-11] MEDS ORDERED: NA CHLORIDE 0.9% 1,000 ML ONE (11:01)
[2021-03-11] MEDS ORDERED: ENOXAPARIN 40 MG/0.4 ML SQ SCH (17:00)
[2021-03-11] MEDS ORDERED: PNEUMOCOCCAL VACCINE 0.5 ML IMVAC ONE (20:00)
[2021-03-12 00:02] VITALS: BMI 17.4
[2021-03-12] MEDS: HYDROCODONE/APAP 7.5/325 MG TAB PO SCH ×4 (04:47→21:45)
[2021-03-12] MEDS: PANTOPRAZOLE 40MG TABLET PO SCH (06:04)
[2021-03-12] MEDS: ENOXAPARIN 30 MG/0.3 ML SQ SCH (09:00)
[2021-03-12] MEDS: METHYLPREDNISOLONE 40 MG INJ IV SCH ×3 (09:35→17:20)
[2021-03-12] MEDS: NA CHLORIDE 0.9% 1,000 ML IV SCH (12:40)
--- NOTE | 2021-03-12 13:14 | P.PN ---
Subjective Date of Service: 03/12/21 Primary Care Provider: Magen Chief Complaint: Covid 19, acute on chronic renalfailure Subjective: No new changes Review of Systems 10-point ROS is otherwise unremarkable Physical Examination - Vital Signs Temperature: 98 F Blood Pressure: 168/88 Pulse: 97 Respirations: 20 Pulse Ox (%): 94 - Physical Exam General: Alert, In no apparent distress HEENT: Atraumatic, PERRLA, EOMI Neck: Supple, JVD not distended Respiratory: Clear to auscultation bilaterally, Normal air movement Cardiovascular: Regular rate/rhythm, Normal S1 S2 Gastrointestinal: Normal bowel sounds, No tenderness Musculoskeletal: No tenderness Integumentary: No rashes Neurological: Normal speech, Normal tone, Normal affect Lymphatics: No axilla or inguinal lymphadenopathy Assessment & Plan - Problems (Diagnosis) (1) Acute on chronic renal failure Current Visit: No Status: Acute Plan: Worsening creatne Will start him on fluids. Consult to dr. Marr. the patient is very non compliant He may need dialysis. This morning he states that he would be willing to have dialysis. However he has a history of changing his mind without reason. 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 He is stable at this point. Will continue oxygen. Consult to Dr. Edge. 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 Diabetes mellitus complication status: with circulatory complication Diabetes mellitus complication detail: with peripheral angiopathy with gangrene Qualified Code(s): E11.52 - Type 2 diabetes mellitus with diabetic peripheral angiopathy with gangrene (4) Hypertension Onset Date: 04/24/18 Current Visit: No Status: Chronic Plan: continue home medications Qualifiers: Hypertension type: primary hypertension Qualified Code(s): I10 - Essential (primary) hypertension Discharge Plan: Home Plan to discharge in: 48 Hours - Code Status/Comfort Care Code Status Assessed: No Physician Review: Patient Assessed, Agree with Above Assessment and Plan Critical Care: No Time Spent Managing Pts Care (In Minutes): 20
--- NOTE | 2021-03-12 15:10 | RAD REPORT ---
EXAM DESCRIPTION: US - Renal Ultrasound-Complete - 03/12/2021 2:49 pm CLINICAL HISTORY: renal failure Flank pain COMPARISON: Abdomen Exam Complete dated 11/09/2020 FINDINGS: Both kidneys are mildly echogenic. The right kidney measures 9.6 x 5.2 x 4.8 cm. No hydronephrosis, focal mass or perinephric fluid. The left kidney measures 9.7 x 5.5 x 4.7 cm. No hydronephrosis, focal mass or perinephric fluid. The urinary bladder is incompletely distended without gross abnormality seen. IMPRESSION: Mildly echogenic kidneys bilaterally compatible with underlying medical renal disease.
--- NOTE | 2021-03-12 15:12 | CON ---
Date of Consultation: 03/12/2021 Requesting Provider: Garo Us MD. Reason For Consultation: Renal insufficiency. History Of Present Illness: Mr. Matamoros is a patient with longstanding chronic kidney disease, stage 3, who presented to the hospital with symptomatic COVID-19 pneumonia. The patient was admitted and our consultation was requested for renal insufficiency. He was admitted for renal insufficiency. Un fortunately, Mr. Matamoros is a very poor historian and the history is taken from the chart. From wilian l perspective, patient's baseline creatinine has been in the 1.5 to 2.2 range. He presented this siena e with a creatinine of 3.33, and has been placed on IV fluids. The patient is unable to tell me if thea morgan has any NSAIDs and unable to report any outside history of iodinated contrast. Physical Examination: Vital Signs: 168/88, pulse 97, afebrile. General: No acute distress. Heart: Regular rate and rhythm. No murmurs, rubs, gallops. Lungs: Scattered crepitations. Abdomen: Soft. Diaper in place. Extremities: No edema. Laboratory Data: BUN and creatinine 64/3.48, CO2 of 16, calcium 8.3. There is not a UA at this time . Diagnostic Imaging: Mild bilateral airspace disease, which may represent multifocal pneumonia. Current Medications: The patient on normal saline at 75 mL an hour. No new medications noted. Impression: 1.Acute kidney injury with underlying chronic kidney disease, stage 3, likely related to volume depl etion versus acute sepsis. 2.COVID-19 pneumonia. 3.Hypertension. 4.Acidosis in the setting of renal failure. Plan: Mr. Matamoros is not currently requiring renal placement therapy. We will change patient's norm al saline to bicarbonate based solution. Patient does have uncontrolled hypertension. At this time, we would recommend reinstitution of patient's antihypertensive regimen. Continue tracking inflammat ory markers and respiratory status. I will defer the management of COVID-19 pneumonia to the primary team. Please ensure all medications renally dosed. Avoid NSAIDs and iodinated contrast and please ensure that patient on renal diet. The patient does understand completely the need for dialysis and so if that need occurs, we may requi re 2 physician consent versus consent from family member if the patient continue to demonstrate under standing and mentation does not improve. SE/MODL Voice ID: [id number] Report ID: [id number]
--- NOTE | 2021-03-12 15:12 | RAD REPORT ---
EXAM DESCRIPTION: US - Urinary Bladder - 03/12/2021 2:49 pm CLINICAL HISTORY: renal failure Flank pain COMPARISON: No comparisons TECHNIQUE: Real-time sonographic evaluation of the urinary bladder with pre and postvoid volume jomar urements was performed. FINDINGS: There is no evidence of a bladder mass or ureterocele. The patient was unable to void a si gnificant amount. Postvoid bladder volume 205 mL. IMPRESSION: The patient had significant difficulty with voiding. Pre and postvoid bladder volumes ar e essentially unchanged at 205 mL.
[2021-03-12] MEDS: NACHLORIDE 0.45% 1,000 ML with NA BICARB 8.4% 75 MEQ IV SCH ×2 (15:19)
[2021-03-12] MEDS: AMLODIPINE 5 MG TAB PO SCH (21:46)
[2021-03-13] MEDS: METHYLPREDNISOLONE 40 MG INJ IV SCH ×3 (00:15→16:46)
[2021-03-13] MEDS: NACHLORIDE 0.45% 1,000 ML with NA BICARB 8.4% 75 MEQ IV SCH ×4 (03:58→16:47)
[2021-03-13] MEDS: HYDROCODONE/APAP 7.5/325 MG TAB PO SCH ×4 (04:51→21:37)
[2021-03-13] MEDS: PANTOPRAZOLE 40MG TABLET PO SCH (04:52)
[2021-03-13 09:36] LABS: Phosphorus 4.8 mg/dL (2.5-4.9); Potassium 3.7 mmol/L (3.5-5.1)
[2021-03-13 09:40] LABS: Absolute Lymphocytes (CBC) 0.3 K/uL (0.7-4.9); Basophils % 0.2 % (0-1.3); Hematocrit 34.9 % (39.6-49.0); Lymphocytes % 3.1 % (15.3-44.8); MPV 7.6 fL (7.6-11.3); RBC Red Blood Cell Count 4.05 M/uL (4.33-5.43)
[2021-03-13] MEDS: ENOXAPARIN 30 MG/0.3 ML SQ SCH ×2 (09:46→16:46)
[2021-03-13] MEDS: AMLODIPINE 5 MG TAB PO SCH (10:00)
--- NOTE | 2021-03-13 10:19 | PN ---
Date of Progress Note: 03/13/2021 Subjective: Patient seen at the bedside. No overnight events reported. The patient feels he is mor e alert today. Able to answer questions better. Labs for today are still pending. The patient has been on IV fluids. Objective: Vital Signs: Blood pressure is 155/64, pulse 93, afebrile. Input and output partially m easured but somewhat was 600 mL of urine output. General: No acute distress. Heart: Regular rate and rhythm. No murmurs, rubs, or gallops. Lungs: Clear to auscultation. Abdomen: Soft, nontender. Extremities: No edema. Laboratory Data: Today's labs are pending. Medications: Current medications were reviewed. Continued with Solu-Medrol 80 mg IV q.8. On sodium bicarb with 75 mEq of bicarb at 75 mL an hour. Impression: 1.Acute kidney injury on chronic kidney disease. 2.COVID-19 pneumonia. 3.Acute hypoxemic respiratory failure. 4.Electrolyte imbalance. Plan: Labs today will be reviewed. There is currently no need for renal replacement therapy in the setting of volume overload; however, we will need to determine electrolyte balance. Continue to avoi d NSAIDs and iodinated contrast. I have explained to the patient that he needs to stay in the hospital until we determine the course of his renal failure. SE/MODL Voice ID: [id number] Report ID: [id number]
--- NOTE | 2021-03-13 11:09 | P.CNS ---
Date of Consult: 03/13/21 Reason for Consult: Coronavirus pneumonia Primary Care Provider: Magen Chief Complaint: Covid 19, acute on chronic renalfailure History of Present Illness: Patient is 70 years of age with stage IV renal disease tested positive for Covid admitted with coronavirus pneumonia is currently stable on nasal cannula oxygen Allergies Penicillins Allergy (Intermediate, Verified 03/03/19 18:20) Rash Home Medications: Amlodipine [Norvasc*] 5 mg PO DAILY #30 tab 12/02/20 Gabapentin [Neurontin*] 100 mg PO TID #90 cap 12/02/20 Metoprolol Tartrate [Lopressor*] 25 mg PO BID #60 tab 12/02/20 Metoprolol Succinate 1 tab PO DAILY 02/02/21 Azithromycin [Zithromax] 500 mg PO DAILY 4 Days #4 tablet 02/05/21 Hydrocodone Bit/Acetaminophen [Hydrocodon-Acetaminoph 7.5-325] 1 each PO TIDP P RN 7 Days #20 tablet 02/05/21 Sulfamethoxazole/Trimethoprim [Bactrim Ds Tablet] 1 each PO BID 5 Days #10 tablet 02/05/21 - Past Medical/Surgical History Diabetic: Yes -: Diabetes mellitus type 2, [id number] -: DM-NIDDM -: Alcohol Abuse -: Tobacco Abuse -: Hypertension -: Chronic pain -: Chronic sacral ulcer -: Left Knee Surgery -: Left BKA with Prosthetic blood -: surg wnd on coccyx wound Psychosocial/ Personal History: He is , has 4 children. He is disabled. - Family History Father Medical History: Heart disease, Hypertension, Diabetes, Cancer Mother Medical History: Diabetes, Stroke - Social History Smoking Status: Current some day smoker Alcohol use: No CD- Drugs: No Caffeine use: Yes Place of Residence: Home Review of Systems General: Weakness Respiratory: Shortness of Breath Physical Examination Temp Pulse Resp BP Pulse Ox 96.8 F 97 H 20 180/97 H 90 L 03/13/21 08:00 03/13/21 10:00 03/13/21 10:02 03/13/21 10:00 03/13/21 10:02 General: Alert, Oriented x3, Cooperative - Problems (1) 2019 novel coronavirus-infected pneumonia (NCIP) Current Visit: Yes Status: Acute Plan: Patient is 70 years of age admitted with coronavirus pneumonia he is got some interstitial changes on his chest x-ray nasal cannula oxygen doing well chronic renal failure labs reviewed renal function is improving plan for discharge tomorrow
[2021-03-13 11:30] LABS: Blood Morphology Comment NOT SEEN (NOT SEEN); Platelet Estimate ADEQ
--- NOTE | 2021-03-13 12:21 | P.PN ---
Subjective Date of Service: 03/13/21 Primary Care Provider: Magen Chief Complaint: Covid 19, acute on chronic renalfailure Subjective: No new changes Review of Systems 10-point ROS is otherwise unremarkable Physical Examination - Vital Signs Temperature: 96.8 F Blood Pressure: 180/97 Pulse: 97 Respirations: 20 Pulse Ox (%): 90 - Physical Exam General: Alert, In no apparent distress HEENT: Atraumatic, PERRLA, EOMI Neck: Supple, JVD not distended Respiratory: Clear to auscultation bilaterally, Normal air movement Cardiovascular: Regular rate/rhythm, Normal S1 S2 Gastrointestinal: Normal bowel sounds, No tenderness Musculoskeletal: No tenderness Integumentary: No rashes Neurological: Normal speech, Normal tone, Normal affect Lymphatics: No axilla or inguinal lymphadenopathy Assessment & Plan - Problems (Diagnosis) (1) Acute on chronic renal failure Current Visit: No Status: Acute Plan: Worsening creatne Will start him on fluids. Consult to dr. Marr. the patient is very non compliant He may need dialysis. This morning he states that he would be willing to have dialysis. However he has a history of changing his mind without reason. 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 He is stable at this point. Will continue oxygen. Consult to Dr. Edge. 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 use status Diabetes mellitus complication status: with circulatory complication Diabetes mellitus complication detail: with peripheral angiopathy with gangrene Qualified Code(s): E11.52 - Type 2 diabetes mellitus with diabetic peripheral angiopathy with gangrene (4) Hypertension Onset Date: 04/24/18 Current Visit: No Status: Chronic Plan: continue home medications Qualifiers: Hypertension type: primary hypertension Qualified Code(s): I10 - Essential (primary) hypertension Discharge Plan: Home Plan to discharge in: 48 Hours - Code Status/Comfort Care Code Status Assessed: No Physician Review: Patient Assessed, Agree with Above Assessment and Plan Critical Care: No Time Spent Managing Pts Care (In Minutes): 20
[2021-03-13] MEDS: GLUCERNA SHAKE 237 ML CAN PO SCH (20:24)
[2021-03-13] MEDS ORDERED: GLUCAGON 1 MG/VIAL IM PRN (23:55)
[2021-03-13] MEDS ORDERED: D50W 25 GM/50 ML SYRINGE IV PRN (23:55)
[2021-03-14] MEDS: INSULIN -REGULAR HUMAN 50 UNIT/0.5 ML ML SQ SCH ×5 (00:18→21:00)
[2021-03-14] MEDS: METHYLPREDNISOLONE 40 MG INJ IV SCH ×3 (00:19→17:01)
[2021-03-14] MEDS: HYDROCODONE/APAP 7.5/325 MG TAB PO SCH ×4 (04:00→22:00)
[2021-03-14 05:40] LABS: Absolute Lymphocytes (CBC) 0.3 K/uL (0.7-4.9); Basophils % 0.5 % (0-1.3); Hematocrit 29.5 % (39.6-49.0); MPV 7.6 fL (7.6-11.3); RBC Red Blood Cell Count 3.45 M/uL (4.33-5.43)
[2021-03-14] MEDS: PANTOPRAZOLE 40MG TABLET PO SCH (05:46)
[2021-03-14 05:58] LABS: Potassium 3.3 mmol/L (3.5-5.1)
[2021-03-14] MEDS: NACHLORIDE 0.45% 1,000 ML with NA BICARB 8.4% 75 MEQ IV SCH ×4 (08:00→19:09)
[2021-03-14] MEDS: GLUCERNA SHAKE 237 ML CAN PO SCH ×2 (09:00→20:13)
[2021-03-14] MEDS: ENOXAPARIN 30 MG/0.3 ML SQ SCH ×2 (09:56→17:00)
[2021-03-14] MEDS: AMLODIPINE 5 MG TAB PO SCH (09:56)
[2021-03-14] MEDS ORDERED: POTASSIUM CL SA 10 MEQ TAB PO ONE (10:35)
--- NOTE | 2021-03-14 12:04 | PN ---
Date of Progress Note: 03/14/2021 Subjective: The patient is seen in room 403 on the COVID floor. The patient is COVID positive. He is alert, awake, but unable to answer questions appropriately, question baseline ability and cognitio n, question if encephalopathy or affect from COVID versus baseline dementia. The patient is responsi ve and seems comfortable, but is not a good historian, not able to provide much history. Nurses in t he room with me. Blood pressure is about 165/94, last checked before that 158/96. Lungs are clear. Abdomen is soft. Extremities reveal no edema. Skin is dry. His left lower extremity has BKA. Sma ll scabs on the leg and the patient has also had it on the back on nursing evaluation. The patient d enies any pain currently. He is having some nausea and has not been able to tolerate p.o. intake muc h this morning, did not eat much from his breakfast. Objective: Lungs: On evaluation, clear to auscultation bilaterally. Abdomen: Soft. Heart: Sounds are regular. Vital Signs: Pulse is about 80-90, respirations around 18. The patient is afebrile. Laboratory Data: On evaluation of his labs; hemoglobin 10.4, hematocrit 29.5, WBC count of 8.3, plat elet count of 139. Chemistry shows sodium 137, potassium 3.3, chloride 105, bicarb is 25, BUN and cr eatinine are 60 and 2.45, glucose is 212. Assessment And Plan: 1.Hypertension. The patient is on amlodipine. We will monitor and consider adding medications furt her blood pressure stays high, but given the fact the patient is not eating and drinking much, we naveen l go ahead and hold off on adding further medications right now and monitor. Some of the blood press ure going up also may be from agitation. The patient is on amlodipine. He also is having some mild agitation and if he does not eat and drink that much, the blood pressure may also be improved as his volume status will continue to improve; however, at this point, I do not think his blood pressure is much related with the volume in fact his volume status seems to be slightly depleted. We would zahraa nue half-normal saline with bicarb at 75 mL an hour. Repeat BMP tomorrow morning. If blood pressure stays high, we would consider adding low-dose spironolactone at about 12.5 mg half a tablet of 25 mg p.o. daily. This may also help for the patient with his potassium, which has been running on the [facility] side. 2.Hypokalemia. Encourage balance diet, 20 mEq of potassium p.o. x1 now, repeat BMP tomorrow. 3.Hypocalcemia. Replace vitamin D. 4.Low bicarb, stabilizing. The patient is getting IV fluids and has had bicarb supplement. 5.Acute kidney injury with prerenal azotemia, improving close to baseline. Continue to monitor. /MELY Voice ID: [id number] Report ID: [id number]
--- NOTE | 2021-03-14 12:50 | P.PN ---
Subjective Date of Service: 03/14/21 Primary Care Provider: Magen Chief Complaint: Covid 19, acute on chronic renalfailure Subjective: No new changes Review of Systems 10-point ROS is otherwise unremarkable Physical Examination - Vital Signs Temperature: 97.6 F Blood Pressure: 165/94 Pulse: 90 Respirations: 18 Pulse Ox (%): 91 - Physical Exam General: Alert, In no apparent distress HEENT: Atraumatic, PERRLA, EOMI Neck: Supple, JVD not distended Respiratory: Clear to auscultation bilaterally, Normal air movement Cardiovascular: Regular rate/rhythm, Normal S1 S2 Gastrointestinal: Normal bowel sounds, No tenderness Musculoskeletal: No tenderness Integumentary: No rashes Neurological: Normal speech, Normal tone, Normal affect Lymphatics: No axilla or inguinal lymphadenopathy Assessment & Plan - Problems (Diagnosis) (1) Acute on chronic renal failure Current Visit: No Status: Acute Plan: Worsening creatne Will start him on fluids. Consult to dr. Marr. the patient is very non compliant He may need dialysis. This morning he states that he would be willing to have dialysis. However he has a history of changing his mind without reason. 03/14 possible discharge if creatine continues to improve. 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 He is stable at this point. Will continue oxygen. Consult to Dr. Edge. 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 Diabetes mellitus complication status: with circulatory complication Diabetes mellitus complication detail: with peripheral angiopathy with gangrene Qualified Code(s): E11.52 - Type 2 diabetes mellitus with diabetic peripheral angiopathy with gangrene (4) Hypertension Onset Date: 04/24/18 Current Visit: No Status: Chronic Plan: continue home medications Qualifiers: Hypertension type: primary hypertension Qualified Code(s): I10 - Essential (primary) hypertension Discharge Plan: Home Plan to discharge in: 24 Hours - Code Status/Comfort Care Code Status Assessed: No Physician Review: Patient Assessed, Agree with Above Assessment and Plan Critical Care: No
[2021-03-14] MEDS: COLLAGENASE 30 GM OINTMENT TOP SCH (20:22)
[2021-03-14] MEDS: HYDRALAZINE HCL 20 MG/ML VIAL IV PRN (22:29)
[2021-03-15] MEDS: METHYLPREDNISOLONE 40 MG INJ IV SCH ×3 (01:09→17:00)
[2021-03-15] MEDS: HYDROCODONE/APAP 7.5/325 MG TAB PO SCH ×6 (02:00→21:31)
[2021-03-15] MEDS: PANTOPRAZOLE 40MG TABLET PO SCH (05:13)
[2021-03-15] MEDS: INSULIN -REGULAR HUMAN 50 UNIT/0.5 ML ML SQ SCH ×4 (07:30→21:39)
[2021-03-15] MEDS: AMLODIPINE 10 MG TAB PO SCH (08:39)
[2021-03-15] MEDS: COLLAGENASE 30 GM OINTMENT TOP SCH (08:53)
[2021-03-15] MEDS: ENOXAPARIN 30 MG/0.3 ML SQ SCH ×2 (09:00→17:00)
[2021-03-15] MEDS: GLUCERNA SHAKE 237 ML CAN PO SCH ×2 (09:00→21:00)
[2021-03-15 12:02] LABS: HBsAG Nonreactive (Nonreactive)
[2021-03-15 12:27] LABS: Potassium 3.4 mmol/L (3.5-5.1)
[2021-03-15] MEDS: NACHLORIDE 0.45% 1,000 ML with NA BICARB 8.4% 75 MEQ IV SCH ×2 (12:40)
[2021-03-15] MEDS ORDERED: POTASSIUM CL SA 10 MEQ TAB PO ONE (13:05)
--- NOTE | 2021-03-15 13:57 | PN ---
Subjective: The patient is seen in Room 403 on 4th Floor at [facility] in [place]. The patient is somewhat confused, not a good historian, but he is alert. He looks comfortable. He i s breathing comfortably, still on about 3-4 L of nasal cannula oxygen, O2 sats are in the 90s. Objective: Lungs: His lungs seem clear on exam. Abdomen: Soft. Extremities: Reveal no edema. 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 His skin is dry. He has been tolerating some p.o. intake, but still not taking or eating well. His breakfast is by th e bedside with only about 5% to 10% of it finished. Laboratory Data: His labs are from yesterday were creatinine was 2.45. His bicarb at that time was 25. He has been on 75 mL of normal saline with bicarb, but this is currently off. He does not have any lab work for this morning. Assessment And Plan: Hypertension, volume depletion, COVID pneumonia. Blood pressures seem to be re asonable with systolic in 140s. At this point, the patient is calm. He is breathing comfortably. H e is off the fluids currently, but has been getting 75 mL an hour with bicarb. We will repeat BMP. I have advised the nurse to call me with the results and we will see if any adjustments need to be ma de to his fluid intake. Continue p.o. intake and balance diet for now to keep him hydrated. Once ac pokagon issues with COVID resolved, the patient will need planning for discharge and followup post-discha rge to see if we can keep him stable so that he can stay out of the hospital. Potassium was replaced yesterday. If further replacement is needed after BMP results become available, we will consider placing with p.o. potassium as the patient is ab le to take p.o. intake. /MELY Voice ID: [id number] Report ID: [id number]
[2021-03-15] MEDS ORDERED: NACHLORIDE 0.45% 1,000 ML IV SCH (14:00)
--- NOTE | 2021-03-15 18:46 | P.PN ---
Subjective Date of Service: 03/15/21 Primary Care Provider: Magen Chief Complaint: Covid 19, acute on chronic renalfailure Subjective: No new changes Review of Systems 10-point ROS is otherwise unremarkable Physical Examination - Vital Signs Temperature: 98 F Blood Pressure: 143/85 Pulse: 103 Respirations: 18 Pulse Ox (%): 95 - Physical Exam General: Alert, In no apparent distress HEENT: Atraumatic, PERRLA, EOMI Neck: Supple, JVD not distended Respiratory: Clear to auscultation bilaterally, Normal air movement Cardiovascular: Regular rate/rhythm, Normal S1 S2 Gastrointestinal: Normal bowel sounds, No tenderness Musculoskeletal: No tenderness Integumentary: No rashes Neurological: Normal speech, Normal tone, Normal affect Lymphatics: No axilla or inguinal lymphadenopathy Assessment & Plan - Problems (Diagnosis) (1) Acute on chronic renal failure Current Visit: No Status: Acute Plan: Worsening creatne Will start him on fluids. Consult to dr. Marr. the patient is very non compliant He may need dialysis. This morning he states that he would be willing to have dialysis. However he has a history of changing his mind without reason. 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 He is stable at this point. Will continue oxygen. Consult to Dr. Edge. (3) Diabetes Current Visit: No Status: Acute Plan: check an a1c on the patient Qualifiers: Diabetes mellitus type: type 2 Diabetes mellitus watermaster insulin use: unspecified jail insulin use status Diabetes mellitus complication status: with circulatory complication Diabetes mellitus complication detail: with peripheral angiopathy with gangrene Qualified Code(s): E11.52 - Type 2 diabetes mellitus with diabetic peripheral angiopathy with gangrene (4) Hypertension Onset Date: 04/24/18 Current Visit: No Status: Chronic Plan: continue home medications Qualifiers: Hypertension type: primary hypertension Qualified Code(s): I10 - Essential (primary) hypertension Discharge Plan: Home Plan to discharge in: 24 Hours - Code Status/Comfort Care Code Status Assessed: No Physician Review: Patient Assessed, Agree with Above Assessment and Plan Critical Care: No Time Spent Managing Pts Care (In Minutes): 25
[2021-03-15 20:49] VITALS: O2SAT 91
[2021-03-16] MEDS: METHYLPREDNISOLONE 40 MG INJ IV SCH (00:50)
[2021-03-16] MEDS: HYDROCODONE/APAP 7.5/325 MG TAB PO SCH ×2 (04:07→10:00)
[2021-03-16] MEDS: HYDRALAZINE HCL 20 MG/ML VIAL IV PRN (05:27)
[2021-03-16] MEDS: PANTOPRAZOLE 40MG TABLET PO SCH (05:27)
[2021-03-16 05:30] LABS: Potassium 3.6 mmol/L (3.5-5.1)
[2021-03-16] MEDS: INSULIN -REGULAR HUMAN 50 UNIT/0.5 ML ML SQ SCH ×2 (07:30→11:30)
[2021-03-16] MEDS ORDERED: METHYLPREDNISOLONE 125 MG INJ IV SCH (09:00)
[2021-03-16] MEDS: GLUCERNA SHAKE 237 ML CAN PO SCH (09:00)
[2021-03-16] MEDS: AMLODIPINE 10 MG TAB PO SCH (09:00)
[2021-03-16] MEDS: ENOXAPARIN 30 MG/0.3 ML SQ SCH (09:00)
[2021-03-16] MEDS: COLLAGENASE 30 GM OINTMENT TOP SCH (09:00)
[2021-03-16 13:51] VITALS: TEMP 97.8
--- NOTE | 2021-03-16 15:28 | PN ---
Date of Progress Note: 03/16/2021 Subjective: The patient was seen and examined at bedside. He denies any complaints. Physical Examination: Vital Signs: At this time are showing temperature of 97.2, pulse rate of 95, respiratory rate of 18, and blood pressure of 125/89, O2 saturation of 96% on room air. General: He appears in no acute distress. Lungs: Clear to auscultation. Abdomen: Soft and nontender. Extremities: Without any evidence of edema. Neurologic: He is alert, awake, and oriented x3. Laboratory Data: Showing creatinine of 2.2, BUN of 60, and other electrolytes are stable. BMP resul ts are showing stable hemoglobin, hematocrit, and platelet count. Current Medications: Have been reviewed in detail. He remains on amlodipine, Lovenox for DVT prophy laxis, p.r.n. hydralazine, hydrocodone p.r.n., Dilaudid p.r.n., Solu-Medrol 80 mg every 8 hours, and potassium 1 time dose was given. Impression: 1.Acute on chronic renal insufficiency, currently with stable stage 4 chronic kidney disease. Despi te COVID-19 pneumonia, the patient is doing very well at this time. 2.Hypertension, currently well controlled. 3.Hypokalemia, has resolved. 4.Elevated BUN, likely secondary to steroids. 5.Type 2 diabetes. Continue to monitor closely. Plan: Overall, the patient's renal function is stable. No acute need for dialysis at this time. He is okay to be discharged from Nephrology standpoint with followup as outpatient closely. TARIK/MELY Voice ID: [id number] Report ID: [id number]
--- NOTE | 2021-03-16 16:10 | P.DS ---
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; N18.4 - Chronic kidney disease, stage 4 (severe) (2) COVID-19 Current Visit: Yes Status: Acute (3) Diabetes Current Visit: No Status: Acute Qualifiers: Diabetes mellitus type: type 2 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 Crook of PVD, htn kd stage 4. He was tested positive covid this past Sunday -However he refused admission and went home AMA. The patient was perscribed the I-Mask protochol. However he seems not to be able to get it due to unavalible medications in the pharmacy He comes in with complaint of shortness of breath, lack of appetite and generally not feeling well. the patient was started on Solumedrol. Is currently resting in the er. Stable oxygen level on 2 lts NC. His kidney function has worsened. He has a baseline creatine of 2.2. He was at 3.2 last week. Is now at 3.5 Hospital Course: Patient was admitted to the covid floor. He was stable from a pulmonary point of few. was seen by Dr. Edge. Howeer his renal function had worsened. Was seen by Dr. Arndt's group. His renal function is stable. Seems to be a new baseline. Will see if he follows up with us. He has a been poorly compliant Vital Signs/Physical Exam: Temp Pulse Resp BP Pulse Ox 97.8 F 103 H 18 157/92 H 91 03/16/21 12:00 03/16/21 12:00 03/16/21 12:00 03/16/21 12:00 03/16/21 12:00 General: Alert, In no apparent distress HEENT: Atraumatic, PERRLA, EOMI Neck: Supple, JVD not distended Respiratory: Clear to auscultation bilaterally, Normal air movement Cardiovascular: Regular rate/rhythm, Normal S1 S2 Gastrointestinal: Normal bowel sounds, No tenderness Musculoskeletal: No tenderness Integumentary: No rashes Neurological: Normal speech, Normal tone, Normal affect Lymphatics: No axilla or inguinal lymphadenopathy Laboratory Data at Discharge: WBC 8.30 K/uL (4.3-10.9) D 03/14/21 04:56 Hgb 10.4 g/dL (13.6-17.9) L 03/14/21 04:56 Hct 29.5 % (39.6-49.0) L D 03/14/21 04:56 Plt Count 139 K/uL (152-406) L 03/14/21 04:56 PT 10.8 SECONDS (9.5-12.5) 03/10/21 20:16 INR 0.94 03/10/21 20:16 Sodium 138 mmol/L (136-145) 03/16/21 04:38 Potassium 3.6 mmol/L (3.5-5.1) 03/16/21 04:38 BUN 60 mg/dL (7-18) H 03/16/21 04:38 Creatinine 2.23 mg/dL (0.55-1.3) H 03/16/21 04:38 Glucose 225 mg/dL (74-106) H 03/16/21 04:38 Phosphorus 4.8 mg/dL (2.5-4.9) 03/13/21 08:40 Magnesium 2.0 mg/dL (1.8-2.4) 03/11/21 03:37 Total Bilirubin 0.6 mg/dL (0.2-1.0) 03/10/21 20:16 AST 40 U/L (15-37) H 03/10/21 20:16 ALT 20 U/L (12-78) 03/10/21 20:16 Alkaline Phosphatase 118 U/L (45-117) H 03/10/21 20:16 Home Medications: Amlodipine [Norvasc*] 5 mg PO DAILY #30 tab 12/02/20 Gabapentin [Neurontin*] 100 mg PO TID #90 cap 12/02/20 Metoprolol Tartrate [Lopressor*] 25 mg PO BID #60 tab 12/02/20 Metoprolol Succinate 1 tab PO DAILY 02/02/21 Azithromycin [Zithromax] 500 mg PO DAILY 4 Days #4 tablet 02/05/21 Hydrocodone Bit/Acetaminophen [Hydrocodon-Acetaminoph 7.5-325] 1 each PO TIDP PRN 7 Days #20 tablet 02/05/21 Sulfamethoxazole/Trimethoprim [Bactrim Ds Tablet] 1 each PO BID 5 Days #10 tablet 02/05/21 Diet: Renal Followup: Alonzo Childress MD [ACTIVE - CAN ADMIT] - (Call to schedule appointment.) Garo Us MD [Primary Care Provider] - 1 Week (Call to schedule appointment) Giovanni Syed DO [ACTIVE - CAN ADMIT] - 1-2 Weeks Time spent managing pt's care (in minutes): 30
[2021-03-16 16:15] VITALS: BP 130/78
== END 2021-03-16 16:15 | disposition home or self-care (01) | DRG 177 ==
LOC: ER 16:58 → ERHOLD 23:18 → 4TH 03-11 22:10
PROVIDERS: ADMIT Internal Medicine; ATTEND Internal Medicine
DX: U07.1 COVID-19 (principal); J12.82 Pneumonia due to coronavirus disease 2019; N17.2 Acute kidney failure with medullary necrosis; N18.4 Chronic kidney disease, stage 4 (severe); I12.9 Hypertensive chronic kidney disease with stage 1 through stage 4 chronic kidney disease, or unspecified chronic kidney disease; E11.22 Type 2 diabetes mellitus with diabetic chronic kidney disease; E11.51 Type 2 diabetes mellitus with diabetic peripheral angiopathy without gangrene; E87.6 Hypokalemia; Z89.512 Acquired absence of left leg below knee; Z91.19 Patient's noncompliance with other medical treatment and regimen; Z23 Encounter for immunization
CPT/HCPCS: 0240U; 36415; 71045; 76770; 76857; 80048; 80076; 82728; 82947; 83540; 83735; 83880; 84100; 84466; 84484; 85025; 85610; 86140; 87340; 87804; 90471; 90732; 93005; 99251; 99285; J0360; J1650; J2920; J2930; J3590; J7030

== ENCOUNTER 2021-03-16 19:45 | Emergency (ER) | payer OTHER ==
--- OUTSIDE RECORDS SUMMARY | 2021-03-16 19:53 | XMS REPORT | Continuity of Care Document ---
:1950 Author Organization [facility] t Address 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 00:00: Me dical site site 00 Center Liver Liver Disease Active [facility] cirrhosis cirrhosis 3- [facility] - 00:00: Medical 00 Center Portal Portal Disease Active [facility] hypertensi hypertensi 3-21 Estrella kes - ve ve 00:00: Medical gastropath gastropath 00 Ce nter y y GI bleed GI bleed Disease Active [facility] - [facility] 00 Center Allergies, Adverse Reactions, Alerts Allergy Allergy Status Severity Reaction(s) Onset Inactive Treating Comm ents Source Name Type Date Date Clinician Penicill Drug Active Rash [facility] ins Allergy 12-13 [facility] - 00:[facility]: Medical 00 Center Penicill Adverse Active Info Not [facility] amine Reaction Available [facility] Social History Social Habit Start Date Stop Date Quantity Comments Source Sex Assigned At [facility] Alcohol intake 2020-10-04 2020-10-04 [facility] 00:[facility]00 00:00:00 of alcohol [facility] (finding) Tobacco use and 2020-10-04 2020-10-04 Never used [facility] - exposure 00:00:00 00:00:00 [facility] Smoking Status Start Date Stop Date Source Current every day smoker 2020-10-04 00:00:00 [facility] Medications Ordered Filled Start Stop Current Ordering [...] 2.5mg QD Take [address] [facility] (NORVASC) 3-22 03-22 tablet [facility] - 2.5 MG 00:00: 23:59 (2.5 mg Medical tablet 00 :00 total) by Center mouth daily. pantoprazol 2021-0 Yes 40mg Q.5D Take [address] [facility] [address] e 3-21 tablet (40 [facility] - (PROTONIX) 00:00: mg total) Me dical 40 MG 00 by mouth 2 Center tablet (two) times daily. pantoprazol 1-0 Yes 40mg Q.5D Take [address] [facility] [address] e 3-21 tablet (40 [facility] - (PROTONIX) 00:00: mg total) Me dical 40 MG 00 by mouth 2 Center tablet (two) times daily. pantoprazol 1-0 Yes 40mg Q.5D Take [address] [facility] [address] e 3-21 tablet (40 [facility] - (PROTONIX) 00:00: mg total) Me dical 40 MG 00 by mouth 2 Center tablet (two) times daily. pantoprazol 1-0 Yes 40mg Q.5D Take [address] e 3-21 tablet (40 [facility] - (PROTONIX) 00:00: mg total) Me dical 40 MG 00 by mouth 2 Center tablet (two) times daily. pantoprazol 1-0 Yes 40mg Q.5D Take [address] e 3-21 tablet (40 [facility] - (PROTONIX) 00:00: mg total) Me dical 40 MG 00 by mouth 2 Center tablet (two) times daily. acetaminoph 2020-2021- No 650mg Take [address] en 3-03 10-16 tablets [facility] - (TYLENOL) 00:00: 23:59 (650 mg Medi marisel 325 MG 00 :00 total) by Center tablet mouth every 6 (six) hours as needed for up to 360 days. acetaminoph 2020-0 2021- No 650mg Take [address] en 3- 03-16 tablets [facility] - (TYLENOL) 00:00: 23:59 (650 mg Medi marisel 325 MG 00 :00 total) by Center tablet mouth every 6 (six) hours as needed for up to 360 days. acetaminoph 2020-0 2021- No 650mg Take [address] en 3- 03-16 tablets [facility] - (TYLENOL) 00:00: 23:59 [...] [address] [facility] Hydrochloro Hydrochloro Yes Alfonzo [address] thiazide thiazide Mera in [facility] Pantoprazol Pantoprazol Yes Alfonzo [address] e Sodium e Sodium Mera [facility] Metoprolol Metoprolol Yes Alfonzo [address] Tartrate Tartrate Mera with food [facility] Ferrous Ferrous Yes Alfonzo [address] Sulfate Sulfate Mera [facility] Amlodipine Amlodipine Yes Alfonzo [address] Besylate Besylate Mera [facility] Gabapentin Gabapentin Yes Alfonzo [address] Mera [facility] Metformin Metformin Yes Alfonzo [address] HCl HCl Mera with a [facility] - meal [facility] Vital Signs Vital Name Observation Time Observation Value Comments Source Systolic blood 2020-10-03 19:17:00 111 mm[Hg] [facility] Diastolic blood 2020-10-03 19:17:00 61 mm[Hg] [facility] Heart rate 2020-10-03 19:17:00 75 /min [facility] Body temperature 2020-10-03 19:17:00 36.94 Latesha [facility] Respiratory rate 2020-10-03 19:17:00 17 /min [facility] Oxygen saturation in 2020-10-03 19:17:00 98 /min [facility] Arterial blood by Medical Ce nter Pulse oximetry Body weight 2020-10-03 07:05:00 51.982 kg [facility] BMI 2020-10-03 07:05:00 20.96 kg/m2 [facility] Body height 2020-09-30 05:22:00 157.5 cm [facility] Procedures Procedure Date / Time Performed Performing Clinician Souriggy e POCT-GLUCOSE METER 2020-10-03 18:09:00 Alice Jackson [facility] HEPATITIS B PCR, 2020-10-03 15:49:00 Sarkis Laboy [facility] HEPATITIS C PCR, 2020-10-03 15:49:00 Sarkis Laboy [facility] - QUANTITATIVE [facility] POCT-GLUCOSE METER 2020-10-03 11:48:00 Alice Jackson [facility] POCT-GLUCOSE METER 2020-10-03 08:34:00 Alice Jackson [facility] CBC W/PLT COUNT & AUTO 2020-10-03 04:35:[address] [facility] CBC (HEMOGRAM ONLY) 2020-10-03 04:35:00 Delmi Peguero [facility] BASIC METABOLIC PANEL (7) 2020-10-03 04:35:00 Delmi Peguero [facility] ACTIN (SMOOTH MUSCLE) 2020-10-03 04:35:00 [facility], IGG [facility] ALPHA FETOPROTEIN (AFP), 2020-10-03 04:35:00 [facility] TUMOR MARKER [facility] [id number]\\, 2020-10-03 04:35:00 [facility] SERUM [facility] ANTI-NUCLEAR ANTIBODY 2020-10-03 04:35:00 [facility] (GAMAL) [facility] BILIRUBIN, DIRECT 2020-10-03 04:35:00 [facility] CERULOPLASMIN 2020-10-03 04:35:00 [facility] A [facility]TIBODY, IGG 2020-10-03 04:35:00 [facility] HEPATITIS B SURFACE 2020-10-03 04:35:00 Kiah Nguyen [facility] - ANTIBODY [facility] HEPATITIS B SURFACE 2020-10-03 04:35:00 Wendy, Kiah [facility] - ANTIGEN [facility] HEPATITIS B CORE 2020-10-03 04:35:00 Wendy, Kiah [facility] - ANTIBODY, TOTAL [facility] HEPATITIS C ANTIBODY 2020-10-03 04:35:00 [facility] MITOCHONDRIA M2 ANTIBODY 2020-10-03 04:35:00 [facility] - (IGG) [facility] PROTHROMBIN TIME/INR 2020-10-03 04:35:00 [facility] PO[facility]-GLUCOSE METER 2020-10-02 21:19:00 [facility] W/[facility]T [facility] & AUTO 2020-10-02 17:29:00 [facility] VANCOMYCIN LEVEL, TROUGH 2020-10-02 17:29:00 Severo Martinez [facility] POCT-GLUCOSE METER 2020-10-02 17:24:00 [facility] PO[facility]UCOSE METER 2020-10-02 11:21:00 [facility] POCT-GLUCOSE METER 2020-10-02 08:03:00 Alice Jackson [facility] CBC W/PLT COUNT & AUTO 2020-10-02 03:39:00 Nate Fields [facility] COMPREHENSIVE METABOLIC 2020-10-02 03:39:00 Delmi Peguero [facility] POCT-GLUCOSE METER 2020-10-01 21:23:00 [facility] HEMOGLOBIN A1C 2020-10-01 14:34:00 Marielena Delmi [facility] CBC W/PLT COUNT & AUTO 2020-10-01 12:08:00 Adrienne Ortiz [facility] - DIFFERENTIAL [facility] POCT-GLUCOSE METER 2020-10-01 10:58:00 Alice Jackson [facility] REPORT OF PROCEDURE - 2020-10-01 10:35:58 Sarkis Laboy [facility] ENDOSCOPY [facility] VANCOMYCIN LEVEL, RANDOM 2020-10-01 10:06:00 Meghann Grier [facility] TISSUE EXAM 2020-10-01 09:43:00 Sarkis Laboy [facility] UPPER ENDOSCOPY,BIOPSY 2020-10-01 09:14:00 Narda [facility] POCT-GLUCOSE METER 2020-10-01 08:23:00 [facility] POCT-GLUCOSE METER 2020-10-01 05:11:00 Renetta [place] VITAMIN B12 AND FOLATE 2020-10-01 04:42:00 Laney [facility] IRON, TIBC, % SAT. 2020-10-01 04:42:00 Laney [facility] (WITHOUT FERRITIN) [facility] 2020-10-01 04:42:00 Laney [facility] SARS-COV2/RT-PCR ([facility] & 2020-10-01 02:44:00 Nate Fields Ma [facility] - REF LABS) [facility] COMPREHENSIVE METABOLIC 2020-10-01 02:44:00 Nate Fields [facility] CBC W/PLT COUNT & AUTO 2020-10-01 02:44:00 Adrienne Ortiz [facility] DIFFERENTIAL [facility] CBC W/PLT COUNT & AUTO 2020-09-30 20:01:00 Adrienne Ortiz [facility] - DIFFERENTIAL [facility] POCT-GLUCOSE METER 2020-09-30 20:00:00 Alice Jackson [facility] CBC (HEMOGRAM ONLY) 2020-09-30 15:15:00 Nate Fields [facility] POCT-GLUCOSE METER 2020-09-30 14:20:00 Alice Jackson [facility] US ABDOMEN LIMITED 2020-09-30 11:32:00 Ford Espinoza [facility] BLOOD CULTURE 2020-09-30 09:45:00 Planegger [facility] BLOOD CULTURE 2020-09-30 09:22:00 Planegger, [facility] CBC W/PLT COUNT & AUTO 2020-09-30 09:22:00 [facility] LACTIC ACID, VENOUS 2020-09-30 09:22:00 [facility] URINALYSIS W/ REFLEX 2020-09-30 09:22:00 [facility] URINE CULTURE [facility] XR CHEST 1 VIEW PORTABLE 2020-09-30 08:39:00 Adrienne Ortiz [facility] - / BEDSIDE [facility] HEMOGLOBIN A1C 2020-09-30 06:52:[address] [facility] POCT-GLUCOSE METER 2020-09-30 06:27:00 Ford Espinoza [facility] PROTHROMBIN TIME/INR 2020-09-30 06:22:00 Malcolm Hernandez CH, I [facility] APTT 2020-09-30 06:22:[address] [facility] COMPREHENSIVE METABOLIC 2020-09-30 06:22:00 Malcolm Hernandez [facility] REPORT OF PROCEDURE - 2020-09-30 00:00:00 Provider, Sherwin [facility] ENDOSCOPY SCAN Scanning [facility] Plan of Care Planned Activity Planned Date Details Comments Source Future Scheduled 2020-07-16 DEPRESSION SCREENING [facility] - Test 00:00:00 (12+) [code = Medical [...] Medica l Center colon (procedure) [code = 064384650] Future Scheduled [address] [facility] - Test 00:00:00 malignant neoplasm of Medica l Center colon (procedure) [code = 278342261] Future Scheduled [address] [facility] - Test 00:00:00 malignant neoplasm of [facility]ica [facility] Center colon (procedure) [code = 005812115] Future Scheduled [address] [facility] [facility] - Test 00:00:00 malignant neoplasm of Medica l Center colon (procedure) [code = 991174110] Future Scheduled [address] [facility] - Test 00:00:00 malignant neoplasm of Medica l Center colon (procedure) [code = 317527855] Encounters Start End Encounter Admission Attending Care Care Encounter Source Date/Time Date/Time Type Type Clinicians Facility Department ID 2021-02-24 2021-02-24 Outpatient [facility] [id number] [facility] 2021-02-17 2021-02-17 Outpatient [facility] [id number] [facility] 2021-02-10 2021-02-10 Outpatient [facility] [id number] [facility] 2020-09-30 2020-10-03 [facility] [id number] [facility] 20:23:00 Encounter Alice Jackson [facility] 2020-09-30 2020-10-03 [facility] [id number] [facility] 05:[facility]00 20:23:00 Encounter Chi Jacksond Niranjan [facility] 2020-10-01 2020-10-01 Surgery Narda, [facility] [id number] 09:05:00 10:17:00 [facility] 2020-10-01 2020-10-01 Surgery Narda, [facility] [id number] 09:05:00 10:17:00 [facility] 2020-10-01 2020-10-01 Anesthesia Vandana, [facility] [id number] 09:24:00 10:04:00 Event [facility] 2020-10-01 2020-10-01 Anesthesia Vandana, [facility] [id number] 09:24:00 10:04:00 Event [facility] 2020-09-30 2020-09-30 Travel [facility] [id number] [facility] 00:00:00 [facility] 2020-09-30 2020-09-30 Travel [facility] [id number] [facility] 00:[facility]00 [facility] 2020-06-24 2020-06-24 [facility] [id number] 2020-06-03 2020[facility]06-[address] [id number] 2020-05-25 2020-05-[address] [facility] [id number] 2020-05-13 2020-05-[address] [facility] [id number] [facility] 2020-04-29 2020-04-[address] [facility] [id number] [facility] 2020-04-15 2020-04-15 [facility] [id number] [facility] 2020-04-15 2020-04-15 [facility] [id number] [facility] 2020-04-07 2020-04-[address] [facility] [id number] [facility] 2020-03-26 2020-03-26 [facility] [id number] 09:10:00 09:10:[address] [employer] [address] [facility] Medicine Outpati ent Clinics 2019-09-21 2019-09-21 [facility] [id number] 21:47:00 21:47:00 t [facility] [address] [facility] Outpat[facility] Clinics 2019-09-19 2019-09-19 [facility] [id number] 13:30:00 13:30:00 t [facility] [address] [facility] Medicine Outpati ent Clinics 2019-09-10 2019-09-10 [facility] [id number] 10:15:00 10:15:00 t [facility] Medicine Outpati ent Clinics 2019-06-20 2019-06-20 [facility] [id number] 13:20:00 13:20:00 t [facility] Medicine Outpati ent Clinics 2019-03-21 2019-03-21 [facility] [id number] 11:20:00 11:20:00 t [facility] [address] [facility] Medicine Outpati ent Clinics Results [...] patients withautoimmune hepatitis (AIH) type 1, approxi hybzet96% of patients with a utoimmune cholangitis,chitra roximately 30% of patients with p rimary biliarycirrhosi s, and approximately 2 % of healthy people.High giulia ues are closely correlated with AIH type 1. ELIANA (test code = Performing Lab ELIANA) [employer] [address] [address] [place] [address] Obdulia Ulrich MD, PhD, MARINA [facility] (Smooth Muscle) Antibody, [id number] 01:25:00 Test Item Value Reference Range Interpretation [...] (test code Performing Lab = ELIANA) [facility] [address] [address] [place] [address] Obdulia Ulrich MD, PhD, MARINA [facility] (Smooth Muscle) Antibody, [id number] 01:25:00 Test Item Value Reference Range Interpretation Comments Anti-Smooth <20 See Note: U Reference Range :<20 Muscle Ab NEGATIVE> O R = 20 (test code = POSITIVE Antibo dies 7022356) recognizing act in are the main compon [...] ELIANA (test code Performing Lab = ELIANA) [facility] [address] [address] [place] [address] Obdulia Ulrich MD, PhD, [facility] (Smooth Muscle) Antibody, [id number] 01:25:00 Test Item Value Reference Range Interpretation Comments Anti-Smooth <20 See Note: U Reference Range :<20 Muscle Ab NEGATIVE> O R = 20 (test code = POSITIVE Antibo dies 6123823) recognizing act in are the main compon [...] ELIANA (test code Performing Lab = ELIANA) [facility] [address] [address] [place] [address] Obdulia Ulrich MD, PhD, [facility] (Smooth Muscle) Antibody, [id number] 01:25:00 Test Item Value Reference Range Interpretation Comments Anti-Smooth <20 See Note: U Reference Range :<20 Muscle Ab NEGATIVE> O R = 20 (test code = POSITIVE Antibo dies 6242734) recognizing act in are the main compon [...] (test code Performing Lab = ELIANA) EZ [facility] [employer] [address] [place] [address] Obdulia Ulrich MD, PhD, MARINA [facility] 14:07:00 Test Item Value Reference Range Interpretation Comments Ceruloplasmin (test code 39 mg/dL 18-36 H = 4638517) ELIANA (test code = ELIANA) Performing Lab *GIULIA [facility], [address] [place] [phone] Nereida Rocha MD Lab Interpretation (test Abnormal code = 30959-1) [facility] 14:07:00 Test Item Value Reference Range Interpretation Comments Ceruloplasmin (test code 39 mg/dL 18-36 H = 1227214) ELIANA (test code = ELIANA) Performing Lab *GIULIA [facility], [address] [place] [phone] Nereida Rocha MD Lab Interpretation (test Abnormal code = 57749-6) [facility] 14:07:00 Test Item Value Reference Range Interpretation Comments Ceruloplasmin (test code 39 mg/dL 18-36 H = 0018663) ELIANA (test code = ELIANA) Performing Lab *GIULIA [facility], [address] [place] [phone] Nereida Rocha MD Lab Interpretation (test Abnormal code = 98572-5) [facility] 14:07:00 Test Item Value Reference Range Interpretation Comments Ceruloplasmin (test code 39 mg/dL 18-36 H = 9219905) ELIANA (test code = ELIANA) Performing Lab *GIULIA [facility], [address] [place] [phone] Nereida Rocha MD Lab Interpretation (test Abnormal code = 86612-8) [facility] 14:07:00 Test Item Value Reference Range Interpretation Comments Ceruloplasmin (test code 39 mg/dL 18-36 H = 8368469) ELIANA (test code = ELIANA) Performing Lab *GIULIA [facility], [facility] [place] [address] T Aj MAXWELL Lab Interpretation (test Abnormal code = 75277-3) [facility] Antibody (IgG)2020-10-06 13:29:00 Test Item Value Reference Range Interpretation Comments Mitochondria M2 Ab 20.3 U See Note: H Reference (test code = 2184321) Range: NEGATIVE: < OR = 20.0EQUIVOCAL: 20.1-24.9POSITI VE: > OR = 25.0 ELIANA (test code = ELIANA) Performing Lab EZ [facility] [address] [address] Obdulia Ulrich MD, PhD, MARINA Lab Interpretation Abnormal (test code = 90186-8) [facility] Antibody (IgG)2020-10-06 13:29:00 Test Item Value Reference Range Interpretation Comments Mitochondria M2 Ab 20.3 U See Note: H Reference (test code = 0106398) Range: NEGATIVE: < OR = 20.0EQUIVOCAL: 20.1-24.9POSITI VE: > OR = 25.0 ELIANA (test code = ELIANA) Performing Lab EZ [facility] [address] [address] Obdulia Ulrich MD, PhD, MARINA Lab Interpretation Abnormal (test code = 38876-8) [facility] Antibody (IgG)2020-10-06 13:29:00 Test Item Value Reference Range Interpretation Comments Mitochondria M2 Ab 20.3 U See Note: H Reference (test code = 6635536) Range: NEGATIVE: < OR = 20.0EQUIVOCAL: 20.1-24.9POSITI VE: > OR = 25.0 ELIANA (test code = ELIANA) Performing Lab EZ [facility] [id number] [place] [address] Obdulia Ulrich MD, PhD, MARINA Lab Interpretation Abnormal (test code = 72804-5) [facility] Antibody (IgG)2020-10-06 13:29:00 Test Item Value Reference Range Interpretation Comments Mitochondria M2 Ab 20.3 U See Note: H Reference (test code = 1153630) Range: NEGATIVE: < OR = 20.0EQUIVOCAL: 20.1-24.9POSITI VE: > OR = 25.0 ELIANA (test code = ELIANA) Performing Lab EZ [facility] [address] [address] Obdulia Ulrich MD, PhD, MARINA Lab Interpretation Abnormal (test code = 46889-7) [facility] Antibody (IgG)2020-10-06 13:29:00 Test Item Value Reference Range Interpretation Comments Mitochondria M2 Ab 20.3 U See Note: H Reference (test code = 7454965) Range: NEGATIVE: < OR = 20.0EQUIVOCAL: 20.1-24.9POSITI VE: > OR = 25.0 ELIANA (test code = ELIANA) Performing Lab EZ [facility] [address] [address] Obdulia Ulrich MD, PhD, MARINA Lab Interpretation Abnormal (test code = 74585-1) [facility] (Left Venipuncture) 2020-10-05 14:00:00 Test Item Value Reference Range Interpretation Comments Result (test code = No growth in 5 days 6463-4) [facility] Culture - Routine (Left Venipuncture) 2020-10-05 14:00:00 Test Item Value Reference Range Interpretation Comments Result (test code = No growth in 5 days 6463-4) [facility] Culture - Routine (Left Venipuncture) 2020-10-05 14:00:00 Test Item Value Reference Range Interpretation Comments Result (test code = No growth in 5 days 6463-4) [facility] (Left Venipuncture) 2020-10-05 14:00:00 Test Item Value Reference Range Interpretation Comments Result (test code = No growth in 5 days 6463-4) [facility] - [facility] (Left Venipuncture) 2020-10-05 14:00:00 Test Item Value Reference Range Interpretation Comments Result (test code = No growth in 5 days 6463-4) [id number] 14:00:00 Test Item Value Reference Range Interpretation Comments CULTURE (BEAKER) (test No growth in 5 days code = 1095) BLOOD [id number] 11:00:00 Test Item Value Reference Range Interpretation Comments CULTURE (BEAKER) (test No growth in 5 days code = 1095) Hepatitis B PCR, [id number] 20:15:00 Test Item Value Reference Range Interpretation Comments HBV PCR, Quantitative HBV DNA not detected HBV DNA not (test code = 69901-4) detected ELIANA (test code = ELIANA) This test uses a Real-Time Polymerase Chain Reaction (RT-PCR) methodology and was performed using MADONNA AmpliPrep/MADONNA TaqMan HBV Test, v2.0 ([employer] Reportable range for this assay is 20 - 170,000,000 IU per mL (1.30 - 8.23 Log IU/mL). Lab Interpretation Normal (test code = 84638-1) [facility], [id number] 20:15:00 Test Item Value Reference Range Interpretation Comments HBV PCR, Quantitative HBV DNA not detected HBV DNA not (test code = 06756-1) detected ELIANA (test code = ELIANA) This test uses a Real-Time Polymerase Chain Reaction (RT-PCR) methodology and was performed using [employer] AmpliPrep/MADONNA TaqMan HBV Test, v2.0 ([employer] Reportable range for this assay is 20 - 170,000,000 IU per mL (1.30 - 8.23 Log IU/mL). Lab Interpretation Normal (test code = 10777-8) [facility], [id number] 20:15:00 Test Item Value Reference Range Interpretation Comments HBV PCR, Quantitative HBV DNA not detected HBV DNA not (test code = 04762-9) detected ELIANA (test code = ELIANA) This test uses a Real-Time Polymerase Chain Reaction (RT-PCR) methodology and was performed using [employer] AmpliPrep/MADONNA TaqMan HBV Test, v2.0 ([employer] Reportable range for this assay is 20 - 170,000,000 IU per mL (1.30 - 8.23 Log IU/mL). Lab Interpretation Normal (test code = 20399-7) [facility] B PCR, [id number] 20:15:00 Test Item Value Reference Range Interpretation Comments HBV PCR, Quantitative HBV DNA not detected HBV DNA not (test code = 01842-5) detected ELIANA (test code = ELIANA) This test uses a Real-Time Polymerase Chain Reaction (RT-PCR) methodology and was performed using [employer] AmpliPrep/MADONNA TaqMan HBV Test, v2.0 ([employer] Reportable range for this assay is 20 - 170,000,000 IU per mL (1.30 - 8.23 Log IU/mL). Lab Interpretation Normal (test code = 08183-0) [facility] B PCR, [id number] 20:15:00 Test Item Value Reference Range Interpretation Comments HBV PCR, Quantitative HBV DNA not detected HBV DNA not (test code = 02073-3) detected ELIANA (test code = ELIANA) This test uses a Real-Time Polymerase Chain Reaction (RT-PCR) methodology and was performed using [employer] AmpliPrep/MADONNA TaqMan HBV Test, v2.0 ([employer] Reportable range for this assay is 20 - 170,000,000 IU per mL (1.30 - 8.23 Log IU/mL). Lab Interpretation Normal (test code = 47359-9) [facility] B PCR, [id number] 20:15:00 Test Item Value Reference Range Interpretation Comments HBV RESULT COMPONENT HBV DNA not detected HBV DNA not detected (BEAKER) (test code = 2701) This test uses a Real-Time Polymerase Chain Reaction (RT-PCR) methodology and was performed using M[employer]ONNA AmpliPrep/MADONNA TaqMan HBV Test, v2.0 ([employer]Reportable range for this assay is 20 - 170,000,000 IU per mL (1.30 - 8.23 Log IU/mL).Hepatitis C PCR, [id number] 19:56:00 Test Item Value Reference Range Interpretation Comments HCV PCR, Quantitative [id number] See_Comment H [Auto mated (test code = 43452-4) messag e] The system which generated this result transmitted reference range : <15 IU/mL. The reference range was not used to interpret this result as normal/abnormal . ELIANA (test code = ELIANA) This test uses a Real-Time Polymerase Chain Reaction (RT-PCR) methodology and was performed using [employer] Ampliprep/MADONNA TaqMan HCV test kit version 2.0 ([employer] Reportable range for this assay is 15 - 100,000,000 IU per mL (1.18 - 8.00 Log IU/mL). Lab Interpretation Abnormal (test code = 92255-9) [facility] C PCR, [id number] 19:56:00 Test Item Value Reference Range Interpretation Comments HCV PCR, Quantitative [id number] See_Comment H [Auto mated (test code = 50415-2) messag e] The system which generated this result transmitted reference range : <15 IU/mL. The reference range was not used to interpret this result as normal/abnormal . ELIANA (test code = ELIANA) This test uses a Real-Time Polymerase Chain Reaction (RT-PCR) methodology and was performed using [employer]NA Ampliprep/MADONNA TaqMan HCV test kit version 2.0 ([employer] Reportable range for this assay is 15 - 100,000,000 IU per mL (1.18 - 8.00 Log IU/mL). Lab Interpretation Abnormal (test code = 20816-9) [facility] C PCR, [id number] 19:56:00 Test Item Value Reference Range Interpretation Comments HCV PCR, Quantitative [id number] See_Comment H [Auto mated (test code = 84035-9) messag e] The system which generated this result transmitted reference range : <15 IU/mL. The reference range was not used to interpret this result as normal/abnormal . ELIANA (test code = ELIANA) This test uses a Real-Time Polymerase Chain Reaction (RT-PCR) methodology and was performed using [employer] Ampliprep/MADONNA TaqMan HCV test kit version 2.0 ([employer] Reportable range for this assay is 15 - 100,000,000 IU per mL (1.18 - 8.00 Log IU/mL). Lab Interpretation Abnormal (test code = 51169-9) [facility] C PCR, [id number] 19:56:00 Test Item Value Reference Range Interpretation Comments HCV PCR, Quantitative [id number] See_Comment H [Auto mated (test code = 69481-8) messag e] The system which generated this result transmitted reference range : <15 IU/mL. The reference range was not used to interpret this result as normal/abnormal . ELIANA (test code = ELIANA) This test uses a Real-Time Polymerase Chain Reaction (RT-PCR) methodology and was performed using M[employer]NA Ampliprep/MADONNA TaqMan HCV test kit version 2.0 ([employer] Reportable range for this assay is 15 - 100,000,000 IU per mL (1.18 - 8.00 Log IU/mL). Lab Interpretation Abnormal (test code = 83474-1) [facility] C PCR, [id number] 19:56:00 Test Item Value Reference Range Interpretation Comments HCV PCR, Quantitative [id number] See_Comment H [Auto mated (test code = 16165-4) messag e] The system which generated this result transmitted reference range : <15 IU/mL. The reference range was not used to interpret this result as normal/abnormal . ELIANA (test code = ELIANA) This test uses a Real-Time Polymerase Chain Reaction (RT-PCR) methodology and was performed using [employer] Ampliprep/MADONNA TaqMan HCV test kit version 2.0 ([employer] Reportable range for this assay is 15 - 100,000,000 IU per mL (1.18 - 8.00 Log IU/mL). Lab Interpretation Abnormal (test code = 60629-3) [facility] C PCR, [id number] 19:56:00 Test Item Value Reference Range Interpretation Comments HCV NUMERIC RESULT (BEAKER) 881569 IU/mL <15 H (test code = 2700) This test uses a Real-Time Polymerase Chain Reaction (RT-PCR) methodology and was performed using MADONNA Ampliprep/MADONNA TaqMan HCV test kit version 2.0 ([employer]).Reportable range for this assay is 15 - 100,000,000 IU per mL (1.18 - 8.00 Log IU/mL).Anti-Nuclear Antibody (GAMAL) 2020-10-04 12:41:00 Test Item Value Reference Range Interpretation Comments GAMAL (test code = 93328-3) Negative Negative ELIANA (test code = ELIANA) Test performed by IFA method. Lab Interpretation (test Normal code = 85913-7) [facility]2020-10-04 12:41:00 Test Item Value Reference Range Interpretation Comments GAMAL (test code = 47347-1) Negative Negative ELIANA (test code = ELIANA) Test performed by IFA method. Lab Interpretation (test Normal code = 40543-6) [facility]AL)2020-10-04 12:41:00 Test Item Value Reference Range Interpretation Comments GAMAL (test code = 90847-3) Negative Negative ELIANA (test code = ELIANA) Test performed by IFA method. Lab Interpretation (test Normal code = 21074-3) [facility] ([facility]AMAL)2020-10-04 12:41:00 Test Item Value Reference Range Interpretation Comments GAMAL (test code = 73910-6) Negative Negative ELIANA (test code = ELIANA) Test performed by IFA method. Lab Interpretation (test Normal code = 97745-6) [facility] ([facility]AMAL)2020-10-04 12:41:00 Test Item Value Reference Range Interpretation Comments GAMAL (test code = 51575-9) Negative Negative ELIANA (test code = ELIANA) Test performed by IFA method. Lab Interpretation (test Normal code = 26545-4) [facility] (GAMAL)2020-10-04 12:41:00 Test Item Value Reference Range Interpretation Comments ANTI-NUCLEAR ANTIBODY (GAMAL) (BEAKER) Negative Negative (test code = 418) Test performed by IFA method.POC-Glucose [id number] 18:23:00 Test Item Value Reference Range Interpretation Comments POC-Glucose Meter (test 127 mg/dL 70-110 H : TE STED AT [facility] code = 1538) [address] [place] [address], [facility] 30: Speech Language Pathologist Assistant/Techni min ID = [id number] for Katelynn Ramirez neto Lab Interpretation (test Abnormal code = 88347-9) [facility] [id number] 18:23:00 Test Item Value Reference Range Interpretation Comments POC-Glucose Meter (test 127 mg/dL 70-110 H : TE STED AT [facility] code = 1538) [address] [facility], [address] 30: Speech Language Pathologist Assistant/Techni min ID = [id number] for Igbalajobi, She neto Lab Interpretation (test Abnormal code = 17935-0) [facility]-Glucose [id number] 18:23:00 Test Item Value Reference Range Interpretation Comments POC-Glucose Meter (test 127 mg/dL 70-110 H : TE STED AT [facility] code = 1538) 20 [facility], 770 30: Speech Language Pathologist Assistant/Techni min ID = [id number] for Igbalajobi, She neto Lab Interpretation (test Abnormal code = 13511-5) [facility] [id number] 18:23:00 Test Item Value Reference Range Interpretation Comments POC-Glucose Meter (test 127 mg/dL 70-110 H : TE STED AT [facility] code = 1538) [address] [place] [address], [facility] 30: Speech Language Pathologist Assistant/Techni min ID = [id number] for Igbalajobi, She neto Lab Interpretation (test Abnormal code = 67907-0) [facility] [id number] 18:23:00 Test Item Value Reference Range Interpretation Comments POC-Glucose Meter (test 127 mg/dL 70-110 H : TE STED AT [facility] code = 1538) [address] [place] [address], [facility] 30: Speech Language Pathologist Assistant/Techni min ID = [id number] for Igbalajobi, She neto Lab Interpretation (test Abnormal code = 83358-3) [facility]-GLUCOSE [id number] 18:23:00 Test Item Value Reference Range Interpretation Comments POC-GLUCOSE METER 127 mg/dL 70-110 H : TESTED A T [facility] 6720 (BEAKER) (test code = [facility], 1538) [address]: Speech Language Pathologist Assistant/Techni min ID = [id number] for Igbalajobi, She neto POCT-GLUCOSE [id number] 12:00:00 Test Item Value Reference Range Interpretation Comments POC-GLUCOSE METER 78 mg/dL 70-110 : TESTED A T [facility] 6720 (BEAKER) (test code = [facility], 1538) [address]: Speech Language Pathologist Assistant/Techni min ID = [id number] for Kassandra Woods Hepatitis B core antibody, [id number] 10:45:00 Test Item Value Reference Range Interpretation Comments Hep B Core Total Ab (test Reactive Nonreactive A code = 47512-3) ELIANA (test code = ELIANA) Speech Language Pathologist Assistant ID - DBOperator ID - DBOperator ID - DB Lab Interpretation (test Abnormal code = 36003-5) [facility], [id number] 10:45:00 Test Item Value Reference Range Interpretation Comments Hep B Core Total Ab (test Reactive Nonreactive A code = 79076-3) ELIANA (test code = ELIANA) Speech Language Pathologist Assistant ID - DBOperator ID - DBOperator ID - DB Lab Interpretation (test Abnormal code = 47261-9) [facility], [id number] 10:45:00 Test Item Value Reference Range Interpretation Comments Hep B Core Total Ab (test Reactive Nonreactive A code = 90079-6) ELIANA (test code = ELIANA) Speech Language Pathologist Assistant ID - DBOperator ID - DBOperator ID - DB Lab Interpretation (test Abnormal code = 03062-8) [facility] antibody, [id number] 10:45:00 Test Item Value Reference Range Interpretation Comments Hep B Core Total Ab (test Reactive Nonreactive A code = 32463-0) ELIANA (test code = ELIANA) Speech Language Pathologist Assistant ID - DBOperator ID - DBOperator ID - DB Lab Interpretation (test Abnormal code = 40433-2) [facility], [id number] 10:45:00 Test Item Value Reference Range Interpretation Comments Hep B Core Total Ab (test Reactive Nonreactive A code = 59311-8) ELIANA (test code = ELIANA) Speech Language Pathologist Assistant ID - DBOperator ID - DBOperator ID - DB Lab Interpretation (test Abnormal code = 64822-2) [facility] CORE ANTIBODY, [id number] 10:45:00 Test Item Value Reference Range Interpretation Comments HEPATITIS B CORE TOTAL ANTIBODY Reactive Nonreactive A (BEAKER) (test code = 497) Speech Language Pathologist Assistant ID - DBOperator ID - DBOperator ID - DBPOCT-GLUCOSE [id number] 08:50:00 Test Item Value Reference Range Interpretation Comments POC-GLUCOSE METER 83 mg/dL 70-110 : TESTED Parveen Padron [facility] 6720 (NELAKER) (test code = [place], 1538) [address]: Speech Language Pathologist Assistant/Techni min ID = [id number] for Kassandra Woods Vojos-7-[id number] 08:30:00 Test Item Value Reference Range Interpretation Comments A-1 Antitrypsin (test 189.40 mg/dL 90-200 code = 1825-9) ELIANA (test code = ELIANA) Speech Language Pathologist Assistant ID - DBOperator ID - DBOperator ID - DB Lab Interpretation (test Normal code = 55665-4) [facility]-gaojjsjgzfl3538-51-77 08:30:00 Test Item Value Reference Range Interpretation Comments A-1 Antitrypsin (test 189.40 mg/dL 90-200 code = 1825-9) ELIANA (test code = ELIANA) Speech Language Pathologist Assistant ID - DBOperator ID - DBOperator ID - DB Lab Interpretation (test Normal code = 84260-2) [facility]-afcpklsvyrv4871-91-90 08:30:00 Test Item Value Reference Range Interpretation Comments A-1 Antitrypsin (test 189.40 mg/dL 90-200 code = 1825-9) ELIANA (test code = ELIANA) Speech Language Pathologist Assistant ID - DBOperator ID - DBOperator ID - DB Lab Interpretation (test Normal code = 89956-8) [facility]-1-kbjjqbkapdu7325-71-17 08:30:00 Test Item Value Reference Range Interpretation Comments A-1 Antitrypsin (test 189.40 mg/dL 90-200 code = 1825-9) ELIANA (test code = ELIANA) Speech Language Pathologist Assistant ID - DBOperator ID - DBOperator ID - DB Lab Interpretation (test Normal code = 27826-4) [facility]-nmpgbjdfhio3254-55-00 08:30:00 Test Item Value Reference Range Interpretation Comments A-1 Antitrypsin (test 189.40 mg/dL 90-200 code = 1825-9) ELIANA (test code = ELIANA) Speech Language Pathologist Assistant ID - DBOperator ID - DBOperator ID - DB Lab Interpretation (test Normal code = 35980-5) [facility]-[id number] 08:30:00 Test Item Value Reference Range Interpretation Comments ALPHA-1 ANTITRYPSIN (BEAKER) 189.40 mg/dL 90.00-200.00 (test code = 502) Speech Language Pathologist Assistant ID - DBOperator ID - DBOperator ID - DBHepatitis A antibody, IgG 2020-10-03 07:01:00 Test Item Value Reference Range Interpretation Comments Hep A IgG (test code = Reactive Nonreactive A 76969-4) ELIANA (test code = ELIANA) Speech Language Pathologist Assistant ID - DB Lab Interpretation (test Abnormal code = 68032-5) [facility] antibody, [id number] 07:01:00 Test Item Value Reference Range Interpretation Comments Hep A IgG (test code = Reactive Nonreactive A 31341-0) ELIANA (test code = ELIANA) Speech Language Pathologist Assistant ID - DB Lab Interpretation (test Abnormal code = 01279-5) [facility] antibody, [id number] 07:01:00 Test Item Value Reference Range Interpretation Comments Hep A IgG (test code = Reactive Nonreactive A 25393-5) ELIANA (test code = ELIANA) Speech Language Pathologist Assistant ID - DB Lab Interpretation (test Abnormal code = 36818-8) [facility] antibody, [id number] 07:01:00 Test Item Value Reference Range Interpretation Comments Hep A IgG (test code = Reactive Nonreactive A 89388-7) ELIANA (test code = ELIANA) Speech Language Pathologist Assistant ID - DB Lab Interpretation (test Abnormal code = 22836-5) [facility] antibody, [id number] 07:01:00 Test Item Value Reference Range Interpretation Comments Hep A IgG (test code = Reactive Nonreactive A 82837-4) ELIANA (test code = ELIANA) Speech Language Pathologist Assistant ID - DB Lab Interpretation (test Abnormal code = 02210-4) [facility]TIBODY, [id number] 07:01:00 Test Item Value Reference Range Interpretation Comments HEPATITIS A IGG ANTIBODY (BEAKER) Reactive Nonreactive A (test code = 2797) Speech Language Pathologist Assistant ID - DBHepatitis C [id number] 06:59:00 Test Item Value Reference Range Interpretation Comments Hepatitis C Ab (test code = Reactive Nonreactive A 54191-6) ELIANA (test code = ELIANA) Speech Language Pathologist Assistant ID - DB Lab Interpretation (test Abnormal code = 97549-2) [facility] C [id number] 06:59:00 Test Item Value Reference Range Interpretation Comments Hepatitis C Ab (test code = Reactive Nonreactive A 89249-1) ELIANA (test code = ELIANA) Speech Language Pathologist Assistant ID - DB Lab Interpretation (test Abnormal code = 41297-9) [facility] C [id number] 06:59:00 Test Item Value Reference Range Interpretation Comments Hepatitis C Ab (test code = Reactive Nonreactive A 21078-1) ELIANA (test code = ELIANA) Speech Language Pathologist Assistant ID - DB Lab Interpretation (test Abnormal code = 75316-3) [facility] C [id number] 06:59:00 Test Item Value Reference Range Interpretation Comments Hepatitis C Ab (test code = Reactive Nonreactive A 64420-7) ELIANA (test code = ELIANA) Speech Language Pathologist Assistant ID - DB Lab Interpretation (test Abnormal code = 83521-8) [facility] C [id number] 06:59:00 Test Item Value Reference Range Interpretation Comments Hepatitis C Ab (test code = Reactive Nonreactive A 77554-7) ELIANA (test code = ELIANA) Speech Language Pathologist Assistant ID - DB Lab Interpretation (test Abnormal code = 93233-7) [facility] C [id number] 06:59:00 Test Item Value Reference Range Interpretation Comments HEPATITIS C ANTIBODY (BEAKER) (test Reactive Nonreactive A code = 367) Speech Language Pathologist Assistant ID - DBBasic Metabolic [id number] 06:38:00 Test Item Value Reference Range Interpretation Comments Sodium (test code = 132 meq/L 136-145 L 2951-2) Potassium (test code = 3.8 meq/L 3.5-5.1 2823-3) Chloride (test code = 106 meq/L 98-107 5-0) CO2 (test code = 17 meq/L 22-29 L 8-9) BUN (test code = 36 mg/dL 7-21 H 3094-0) Creatinine (test code 1.77 mg/dL 0.57-1.25 H = 2160-0) Glucose (test code = 87 mg/dL 70-105 2345-7) Calcium (test code = 7.8 mg/dL 8.4-10.2 L 33922-6) EGFR (test code = 39 mL/min/1.73 [place] [address]-7) NOT ACCURATE CREATININE CLEARANCE IN PREDICTING GLOMERULAR FILTRATION RATE . ESTIMATED GFR I S NOT APPLICABLE FOR DIALYSIS PATIENTS. ELIANA (test code = ELIANA) Speech Language Pathologist Assistant ID - EDASI Lab Interpretation Abnormal (test code = 95746-4) [facility], [id number] 06:38:00 Test Item Value Reference Range Interpretation Comments Bilirubin, Direct (test 0.2 mg/dL 0.1-0.5 code = 1968-01) ELIANA (test code = ELIANA) Speech Language Pathologist Assistant ID - EDASI Lab Interpretation (test Normal code = 32419-1) [facility] Sacramento[facility] Metabolic [id number] 06:38:00 Test Item Value Reference Range Interpretation [...] (test code = 7.8 mg/dL 8.4-10.2 L 59694-4) EGFR (test code = 39 mL/min/1.73 [place] [address]-1) NOT ACCURATE CREATININE CLEARANCE IN PREDICTING GLOMERULAR FILTRATION RATE . ESTIMATED GFR I S NOT APPLICABLE FOR DIALYSIS PATIENTS. ELIANA (test code = ELIANA) Speech Language Pathologist Assistant ID - EDASI Lab Interpretation Abnormal (test code = 86200-3) [facility], [id number] 06:38:00 Test Item Value Reference Range Interpretation Comments Bilirubin, Direct (test 0.2 mg/dL 0.1-0.5 code = 1968-) ELIANA (test code = ELIANA) Speech Language Pathologist Assistant ID - EDASI Lab Interpretation (test Normal code = 00951-4) [facility] SacramentoBasi Metabolic [id number] 06:38:00 Test Item Value Reference Range Interpretation [...] (test code = 7.8 mg/dL 8.4-10.2 L 58501-3) EGFR (test code = 39 mL/min/1.73 sq m [facility] [place] [address]-3) NOT ACCURATE CREATININE CLEARANCE IN PREDICTING GLOMERULAR FILTRATION RATE . ESTIMATED GFR I S NOT APPLICABLE FOR DIALYSIS PATIENTS. ELIANA (test code = ELIANA) Speech Language Pathologist Assistant ID - EDASI Lab Interpretation Abnormal (test code = 94359-8) [facility], [id number] 06:38:00 Test Item Value Reference Range Interpretation Comments Bilirubin, Direct (test 0.2 mg/dL 0.1-0.5 code = 1968-) ELIANA (test code = ELIANA) Speech Language Pathologist Assistant ID - EDASI Lab Interpretation (test Normal code = 02369-5) [facility] Sacramento[facility] Metabolic [id number] 06:38:00 Test Item Value Reference Range Interpretation [...] (test code = 7.8 mg/dL 8.4-10.2 L 53320-0) EGFR (test code = 39 mL/min/1.73 [place] [address]-6) NOT ACCURATE CREATININE CLEARANCE IN PREDICTING GLOMERULAR FILTRATION RATE . ESTIMATED GFR I S NOT APPLICABLE FOR DIALYSIS PATIENTS. ELIANA (test code = ELIANA) Speech Language Pathologist Assistant ID - EDASI Lab Interpretation Abnormal (test code = 04169-1) [facility]Bilirubin, [id number] 06:38:00 Test Item Value Reference Range Interpretation Comments Bilirubin, Direct (test 0.2 mg/dL 0.1-0.5 code = 1968-01) ELIANA (test code = ELIANA) Speech Language Pathologist Assistant ID - EDASI Lab Interpretation (test Normal code = 64221-3) [facility]abolic [id number] 06:38:00 Test Item Value Reference Range Interpretation [...] (test code = 7.8 mg/dL 8.4-10.2 L 31155-8) EGFR (test code = 39 mL/min/1.73 [place] [address]-2) NOT ACCURATE CREATININE CLEARANCE IN PREDICTING GLOMERULAR FILTRATION RATE . ESTIMATED GFR I S NOT APPLICABLE FOR DIALYSIS PATIENTS. ELIANA (test code = ELIANA) Speech Language Pathologist Assistant ID - EDASI Lab Interpretation Abnormal (test code = 55352-0) [facility], [id number] 06:38:00 Test Item Value Reference Range Interpretation Comments Bilirubin, Direct (test 0.2 mg/dL 0.1-0.5 code = 1968-7) ELIANA (test code = ELIANA) Speech Language Pathologist Assistant ID - EDASI Lab Interpretation (test Normal code = 71660-8) [facility] SacramentoBILIRUBIN, [id number] 06:38:00 Test Item Value Reference Range Interpretation Comments BILIRUBIN DIRECT (BEAKER) (test 0.2 mg/dL 0.1-0.5 code = 706) Speech Language Pathologist Assistant ID - EDASIBASIC METABOLIC [id number] 06:38:00 Test Item Value Reference Range Interpretation [...] S NOT APPLICABLE FOR DIALYSIS PATIEN TS. Speech Language Pathologist Assistant ID - EDASIHepatitis B surface [id number] 06:14:00 Test Item Value Reference Range Interpretation Comments Hep B S Ab (test code <8.0 See_Comment [Auto mated = 97551-5) message] The system which generated this result transmit altagracia reference range : <8.0 mIU/mL. Th e reference range was not used to interpret this result as normal/abnormal . ELIANA (test code = ELIANA) Speech Language Pathologist Assistant ID - DB Lab Interpretation Normal (test code = 00863-1) [facility] [id number] 06:14:00 Test Item Value Reference Range Interpretation Comments Hep B S Ab (test code <8.0 See_Comment [Auto mated = 45980-0) message] The system which generated this result transmit altagracia reference range : <8.0 mIU/mL. Th e reference range was not used to interpret this result as normal/abnormal . ELIANA (test code = ELIANA) Speech Language Pathologist Assistant ID - DB Lab Interpretation Normal (test code = 27034-1) [facility] B surface [id number] 06:14:00 Test Item Value Reference Range Interpretation Comments Hep B S Ab (test code <8.0 See_Comment [Auto mated = 56831-3) message] The system which generated this result transmit altagracia reference range : <8.0 mIU/mL. Th e reference range was not used to interpret this result as normal/abnormal . ELIANA (test code = ELIANA) Speech Language Pathologist Assistant ID - DB Lab Interpretation Normal (test code = 07988-5) [facility] B surface [id number] 06:14:00 Test Item Value Reference Range Interpretation Comments Hep B S Ab (test code <8.0 See_Comment [Auto mated = 20177-4) message] The system which generated this result transmit altagracia reference range : <8.0 mIU/mL. Th e reference range was not used to interpret this result as normal/abnormal . ELIANA (test code = ELIANA) Speech Language Pathologist Assistant ID - DB Lab Interpretation Normal (test code = 33787-6) [facility] B surface [id number] 06:14:00 Test Item Value Reference Range Interpretation Comments Hep B S Ab (test code <8.0 See_Comment [Auto mated = 95665-4) message] The system which generated this result transmit altagracia reference range : <8.0 mIU/mL. Th e reference range was not used to interpret this result as normal/abnormal . ELIANA (test code = ELIANA) Speech Language Pathologist Assistant ID - DB Lab Interpretation Normal (test code = 41665-6) [facility] B SURFACE [id number] 06:14:00 Test Item Value Reference Range Interpretation Comments HEPATITIS B SURFACE ANTIBODY < mIU/mL <8.0 (BEAKER) (test code = 647) Speech Language Pathologist Assistant ID - DBHepatitis B surface [id number] 06:13:00 Test Item Value Reference Range Interpretation Comments HBsAg Screen (test code Nonreactive Nonreactive = 5195-3) ELIANA (test code = ELIANA) Specimen is considered negative for HBsAg. Lab Interpretation (test Normal code = 92566-4) [facility] tumor [id number] 06:13:00 Test Item Value Reference Range Interpretation Comments Alpha-Fetoprotein (test code 2.1 ng/mL <10.0 = 1834-1) ELIANA (test code = ELIANA) Speech Language Pathologist Assistant ID - DB Lab Interpretation (test Normal code = 88518-1) [facility] [id number] 06:13:00 Test Item Value Reference Range Interpretation Comments HBsAg Screen (test code Nonreactive Nonreactive = 5195-3) ELIANA (test code = ELIANA) Specimen is considered negative for HBsAg. Lab Interpretation (test Normal code = 32147-0) [facility] ([facility] tumor [id number] 06:13:00 Test Item Value Reference Range Interpretation Comments Alpha-Fetoprotein (test code 2.1 ng/mL <10.0 = 1834-1) ELIANA (test code = ELIANA) Speech Language Pathologist Assistant ID - DB Lab Interpretation (test Normal code = 83332-3) [facility] [id number] 06:13:00 Test Item Value Reference Range Interpretation Comments HBsAg Screen (test code Nonreactive Nonreactive = 5195-3) ELIANA (test code = ELIANA) Specimen is considered negative for HBsAg. Lab Interpretation (test Normal code = 18395-5) [facility] ([facility] tumor [id number] 06:13:00 Test Item Value Reference Range Interpretation Comments Alpha-Fetoprotein (test code 2.1 ng/mL <10.0 = 1834-1) ELIANA (test code = ELIANA) Speech Language Pathologist Assistant ID - DB Lab Interpretation (test Normal code = 44248-9) [facility] [id number] 06:13:00 Test Item Value Reference Range Interpretation Comments HBsAg Screen (test code Nonreactive Nonreactive = 5195-3) ELIANA (test code = ELIANA) Specimen is considered negative for HBsAg. Lab Interpretation (test Normal code = 59935-7) [facility] ([facility] tumor [id number] 06:13:00 Test Item Value Reference Range Interpretation Comments Alpha-Fetoprotein (test code 2.1 ng/mL <10.0 = 1834-1) ELIANA (test code = ELIANA) Speech Language Pathologist Assistant ID - DB Lab Interpretation (test Normal code = 99971-9) [facility] [id number] 06:13:00 Test Item Value Reference Range Interpretation Comments HBsAg Screen (test code Nonreactive Nonreactive = 5195-3) ELIANA (test code = ELIANA) Specimen is considered negative for HBsAg. Lab Interpretation (test Normal code = 71849-7) [facility] ([facility] tumor [id number] 06:13:00 Test Item Value Reference Range Interpretation Comments Alpha-Fetoprotein (test code 2.1 ng/mL <10.0 = 1834-1) ELIANA (test code = ELIANA) Speech Language Pathologist Assistant ID - DB Lab Interpretation (test Normal code = 61480-4) [facility] [id number] 06:13:00 Test Item Value Reference Range Interpretation Comments HEPATITIS B SURFACE ANTIGEN (2) Nonreactive Nonreactive (BEAKER) (test code = 2585) Specimen is considered negative for HBsAg.ALPHA FETOPROTEIN (AFP), TUMOR MARKER 2020-10-03 06:13:00 Test Item Value Reference Range Interpretation Comments ALPHA-FETOPROTEIN (BEAKER) (test 2.1 ng/mL <10.0 code = 1094) Speech Language Pathologist Assistant ID - DBProthrombin time/[id number] 05:06:00 Test Item Value Reference Interpretation Comments Range Protime (test code = 14.4 See_Comment H [Autom ated 5902-2) message] The system which generated this result transmitted reference range : 11.9 - 14.2 seconds. The reference range was not used to interpret this result as normal/abnormal . INR (test code = 1.16 See_Comment [Automated 0691-6) message] The system which generated this result [...] valves. Lab Interpretation Abnormal (test code = 52101-5) [facility]/[id number] 05:06:00 Test Item Value Reference Interpretation Comments Range Protime (test code = 14.4 See_Comment H [Autom ated 5902-2) message] The system which generated this result transmitted reference range : 11.9 - 14.2 seconds. The reference range was not used to interpret this result as normal/abnormal . INR (test code = 1.16 See_Comment [Automated Fotolog1-6) message] The system which generated this result [...] valves. Lab Interpretation Abnormal (test code = 05984-9) [facility]/[id number] 05:06:00 Test Item Value Reference Interpretation Comments [...] valves. Lab Interpretation Abnormal (test code = 61670-3) [facility]/[id number] 05:06:00 Test Item Value Reference Interpretation Comments Range Protime (test code = 14.4 See_Comment H [Autom ated 5902-2) message] The system which generated this result transmitted reference range : 11.9 - 14.2 seconds. The reference range was not used to interpret this result as normal/abnormal . INR (test code = 1.16 See_Comment [Automated Fotolog1-6) message] The system which generated this result [...] valves. Lab Interpretation Abnormal (test code = 20641-1) [facility]/[id number] 05:06:00 Test Item Value Reference Interpretation Comments [...] valves. Lab Interpretation Abnormal (test code = 44951-2) [facility]PROTHROM[facility]/[id number] 05:06:00 Test Item Value Reference Range Interpretation Comments PROTIME (BEAKER) 14.4 seconds 11.9-14.2 H (test code = 759) INR (BEAKER) (test 1.16 See_Comment [Automat ed message] code = 370) The system [employer] generated this result transmitted ref erence range: [...] 8.8 See_Comment [A utomated message] The system [employer] generated this result transmitted ref erence range: 3.5 - 10 .5 K/L. The refe rence range was not u sed to interpret this result as normal/abnor mal. RBC (test code = 789-8) 2.56 See_Comment L [Au tomated message] The system [employer] generated this result transmitted ref erence range: 4.63 - 6 .08 M/L. The refe rence range was not u sed to interpret this result as normal/abnor mal. MCHC (test code = 786-4) 31.8 See_Comment L [A utomated message] The system [employer] generated this result transmitted ref erence range: [...] See_Comment [Aut omated message] 777-3) The system [employer] generated this result transmitted ref erence range: 150 - 45 0 K/CU MM. The referen ce range was not u sed to interpret this result as normal/abnor mal. MPV (test code = 10.2 fL 9.4-12.4 73431-2) nRBC (test code = 413) 0 See_Comment [Aut omated message] The system [employer] generated this result transmitted ref erence range: 0 - 0 /1 00 WBC. The refere nce range was not u sed to interpret this result as normal/abnor mal. Lab Interpretation (test Abnormal code = 38224-5) [facility] with platelet count + automated [id number] 04:58:00 Test Item Value Reference Range Interpretation Comments WBC (test code = 6690-2) 8.8 See_Comment [A utomated message] The system [employer] generated this result transmitted ref erence range: 3.5 - 10 .5 K/L. The refe rence range was not u sed to interpret this result as normal/abnor mal. RBC (test code = 789-8) 2.56 See_Comment L [Au tomated message] The system [employer] generated this result transmitted ref erence range: 4.63 - 6 .08 M/L. The refe rence range was not u sed to interpret this result as normal/abnor mal. MCHC (test code = 786-4) 31.8 See_Comment L [A utomated message] The system [employer] generated this result transmitted ref erence range: [...] See_Comment [Aut omated message] 777-3) The system [employer] generated this result transmitted ref erence range: 150 - 45 0 K/CU MM. The referen ce range was not u sed to interpret this result as normal/abnor mal. MPV (test code = 10.2 fL 9.4-12.4 78536-3) nRBC (test code = 413) 0 See_Comment [Aut omated message] The system [employer] generated this result transmitted ref erence range: [...] H [Aut omated message] 670) The system [employer] generated this result transmitted ref erence range: 1.78 - 5 .38 K/L. The refe rence range was not u sed to interpret this result as normal/abnor mal. # Lymphs (test code = 0.86 See_Comment L [Auto mated message] 414) The system [employer] generated this result transmitted ref erence range: 1.32 - 3 .57 K/L. The refe rence range was not u sed to interpret this result as normal/abnor mal. # Monos (test code = 0.72 See_Comment [Autom ated message] 415) The system [employer] generated this result transmitted ref erence range: 0.30 - 0 .82 K/L. The refe rence range was not u sed to interpret this result as normal/abnor mal. # Eos (test code = 416) 0.12 See_Comment [Au tomated message] The system [employer] generated this result transmitted ref erence range: 0.04 - 0 .54 K/L. The refe rence range was not u sed to interpret this result as normal/abnor mal. # Baso (test code = 417) 0.02 See_Comment [A utomated message] The system [employer] generated this result transmitted ref erence range: 0.01 - 0 .08 K/L. The refe rence range was not u sed to interpret this result as normal/abnor mal. Immature 1 % 0-1 Granulocytes-Relative (test code = 2801) Lab Interpretation (test Abnormal code = 21627-5) [facility]2020-10-03 04:58:00 Test Item Value Reference Range Interpretation Comments WBC (test code = 6690-2) 8.8 See_Comment [A utomated message] The system [employer] generated this result transmitted ref erence range: 3.5 - 10 .5 K/L. The refe rence range was not u sed to interpret this result as normal/abnor mal. RBC (test code = 789-8) 2.56 See_Comment L [Au tomated message] The system [employer] generated this result transmitted ref erence range: 4.63 - 6 .08 M/L. The refe rence range was not u sed to interpret this result as normal/abnor mal. MCHC (test code = 786-4) 31.8 See_Comment L [A utomated message] The system [employer] generated this result transmitted ref erence range: [...] See_Comment [Aut omated message] 777-3) The system [employer] generated this result transmitted ref erence range: 150 - 45 0 K/CU MM. The referen ce range was not u sed to interpret this result as normal/abnor mal. MPV (test code = 10.2 fL 9.4-12.4 26954-1) nRBC (test code = 413) 0 See_Comment [Aut omated message] The system [employer] generated this result transmitted ref erence range: 0 - 0 /1 00 WBC. The refere nce range was not u sed to interpret this result as normal/abnor mal. Lab Interpretation (test Abnormal code = 34794-7) [facility] with platelet count + automated [id number] 04:58:00 Test Item Value Reference Range Interpretation Comments WBC (test code = 6690-2) 8.8 See_Comment [A utomated message] The system [employer] generated this result transmitted ref erence range: 3.5 - 10 .5 K/L. The refe rence range was not u sed to interpret this result as normal/abnor mal. RBC (test code = 789-8) 2.56 See_Comment L [Au tomated message] The system [employer] generated this result transmitted ref erence range: 4.63 - 6 .08 M/L. The refe rence range was not u sed to interpret this result as normal/abnor mal. MCHC (test code = 786-4) 31.8 See_Comment L [A utomated message] The system [employer] generated this result transmitted ref erence range: [...] See_Comment [Aut omated message] 777-3) The system [employer] generated this result transmitted ref erence range: 150 - 45 0 K/CU MM. The referen ce range was not u sed to interpret this result as normal/abnor mal. MPV (test code = 10.2 fL 9.4-12.4 80325-2) nRBC (test code = 413) 0 See_Comment [Aut omated message] The system [employer] generated this result transmitted ref erence range: [...] H [Aut omated message] 670) The system [employer] generated this result transmitted ref erence range: 1.78 - 5 .38 K/L. The refe rence range was not u sed to interpret this result as normal/abnor mal. # Lymphs (test code = 0.86 See_Comment L [Auto mated message] 414) The system [employer] generated this result transmitted ref erence range: 1.32 - 3 .57 K/L. The refe rence range was not u sed to interpret this result as normal/abnor mal. # Monos (test code = 0.72 See_Comment [Autom ated message] 415) The system [employer] generated this result transmitted ref erence range: 0.30 - 0 .82 K/L. The refe rence range was not u sed to interpret this result as normal/abnor mal. # Eos (test code = 416) 0.12 See_Comment [Au tomated message] The system [employer] generated this result transmitted ref erence range: 0.04 - 0 .54 K/L. The refe rence range was not u sed to interpret this result as normal/abnor mal. # Baso (test code = 417) 0.02 See_Comment [A utomated message] The system [employer] generated this result transmitted ref erence range: 0.01 - 0 .08 K/L. The refe rence range was not u sed to interpret this result as normal/abnor mal. Immature 1 % 0-1 Granulocytes-Relative (test code = 2801) Lab Interpretation (test Abnormal code = 25624-6) [facility] (Hemogram only)2020-10-03 04:58:00 Test Item Value Reference Range Interpretation Comments WBC (test code = 6690-2) 8.8 See_Comment [A utomated message] The system [employer] generated this result transmitted ref erence range: 3.5 - 10 .5 K/L. The refe rence range was not u sed to interpret this result as normal/abnor mal. RBC (test code = 789-8) 2.56 See_Comment L [Au tomated message] The system [employer] generated this result transmitted ref erence range: 4.63 - 6 .08 M/L. The refe rence range was not u sed to interpret this result as normal/abnor mal. MCHC (test code = 786-4) 31.8 See_Comment L [A utomated message] The system [employer] generated this result transmitted ref erence range: [...] See_Comment [Aut omated message] 777-3) The system [employer] generated this result transmitted ref erence range: 150 - 45 0 K/CU MM. The referen ce range was not u sed to interpret this result as normal/abnor mal. MPV (test code = 10.2 fL 9.4-12.4 34616-8) nRBC (test code = 413) 0 See_Comment [Aut omated message] The system [employer] generated this result transmitted ref erence range: 0 - 0 /1 00 WBC. The refere nce range was not u sed to interpret this result as normal/abnor mal. Lab Interpretation (test Abnormal code = 32775-1) [facility] with platelet count + automated [id number] 04:58:00 Test Item Value Reference Range Interpretation Comments WBC (test code = 6690-2) 8.8 See_Comment [A utomated message] The system [employer] generated this result transmitted ref erence range: 3.5 - 10 .5 K/L. The refe rence range was not u sed to interpret this result as normal/abnor mal. RBC (test code = 789-8) 2.56 See_Comment L [Au tomated message] The system [employer] generated this result transmitted ref erence range: 4.63 - 6 .08 M/L. The refe rence range was not u sed to interpret this result as normal/abnor mal. MCHC (test code = 786-4) 31.8 See_Comment L [A utomated message] The system [employer] generated this result transmitted ref erence range: [...] See_Comment [Aut omated message] 777-3) The system [employer] generated this result transmitted ref erence range: 150 - 45 0 K/CU MM. The referen ce range was not u sed to interpret this result as normal/abnor mal. MPV (test code = 10.2 fL 9.4-12.4 95161-1) nRBC (test code = 413) 0 See_Comment [Aut omated message] The system [employer] generated this result transmitted ref erence range: [...] H [Aut omated message] 670) The system [employer] generated this result transmitted ref erence range: 1.78 - 5 .38 K/L. The refe rence range was not u sed to interpret this result as normal/abnor mal. # Lymphs (test code = 0.86 See_Comment L [Auto mated message] 414) The system [employer] generated this result transmitted ref erence range: 1.32 - 3 .57 K/L. The refe rence range was not u sed to interpret this result as normal/abnor mal. # Monos (test code = 0.72 See_Comment [Autom ated message] 415) The system [employer] generated this result transmitted ref erence range: 0.30 - 0 .82 K/L. The refe rence range was not u sed to interpret this result as normal/abnor mal. # Eos (test code = 416) 0.12 See_Comment [Au tomated message] The system [employer] generated this result transmitted ref erence range: 0.04 - 0 .54 K/L. The refe rence range was not u sed to interpret this result as normal/abnor mal. # Baso (test code = 417) 0.02 See_Comment [A utomated message] The system [employer] generated this result transmitted ref erence range: 0.01 - 0 .08 K/L. The refe rence range was not u sed to interpret this result as normal/abnor mal. Immature 1 % 0-1 Granulocytes-Relative (test code = 2801) Lab Interpretation (test Abnormal code = 25901-7) [facility] (Hemogram only)2020-10-03 04:58:00 Test Item Value Reference Range Interpretation Comments WBC (test code = 6690-2) 8.8 See_Comment [A utomated message] The system [employer] generated this result transmitted ref erence range: 3.5 - 10 .5 K/L. The refe rence range was not u sed to interpret this result as normal/abnor mal. RBC (test code = 789-8) 2.56 See_Comment L [Au tomated message] The system [employer] generated this result transmitted ref erence range: 4.63 - 6 .08 M/L. The refe rence range was not u sed to interpret this result as normal/abnor mal. MCHC (test code = 786-4) 31.8 See_Comment L [A utomated message] The system [employer] generated this result transmitted ref erence range: [...] See_Comment [Aut omated message] 777-3) The system [employer] generated this result transmitted ref erence range: 150 - 45 0 K/CU MM. The referen ce range was not u sed to interpret this result as normal/abnor mal. MPV (test code = 10.2 fL 9.4-12.4 30698-6) nRBC (test code = 413) 0 See_Comment [Aut omated message] The system [employer] generated this result transmitted ref erence range: 0 - 0 /1 00 WBC. The refere nce range was not u sed to interpret this result as normal/abnor mal. Lab Interpretation (test Abnormal code = 64505-0) [facility] with platelet count + automated [id number] 04:58:00 Test Item Value Reference Range Interpretation Comments WBC (test code = 6690-2) 8.8 See_Comment [A utomated message] The system [employer] generated this result transmitted ref erence range: 3.5 - 10 .5 K/L. The refe rence range was not u sed to interpret this result as normal/abnor mal. RBC (test code = 789-8) 2.56 See_Comment L [Au tomated message] The system [employer] generated this result transmitted ref erence range: 4.63 - 6 .08 M/L. The refe rence range was not u sed to interpret this result as normal/abnor mal. MCHC (test code = 786-4) 31.8 See_Comment L [A utomated message] The system [employer] generated this result transmitted ref erence range: [...] See_Comment [Aut omated message] 777-3) The system [employer] generated this result transmitted ref erence range: 150 - 45 0 K/CU MM. The referen ce range was not u sed to interpret this result as normal/abnor mal. MPV (test code = 10.2 fL 9.4-12.4 63362-5) nRBC (test code = 413) 0 See_Comment [Aut omated message] The system [employer] generated this result transmitted ref erence range: [...] H [Aut omated message] 670) The system [employer] generated this result transmitted ref erence range: 1.78 - 5 .38 K/L. The refe rence range was not u sed to interpret this result as normal/abnor mal. # Lymphs (test code = 0.86 See_Comment L [Auto mated message] 414) The system [employer] generated this result transmitted ref erence range: 1.32 - 3 .57 K/L. The refe rence range was not u sed to interpret this result as normal/abnor mal. # Monos (test code = 0.72 See_Comment [Autom ated message] 415) The system [employer] generated this result transmitted ref erence range: 0.30 - 0 .82 K/L. The refe rence range was not u sed to interpret this result as normal/abnor mal. # Eos (test code = 416) 0.12 See_Comment [Au tomated message] The system [employer] generated this result transmitted ref erence range: 0.04 - 0 .54 K/L. The refe rence range was not u sed to interpret this result as normal/abnor mal. # Baso (test code = 417) 0.02 See_Comment [A utomated message] The system [employer] generated this result transmitted ref erence range: 0.01 - 0 .08 K/L. The refe rence range was not u sed to interpret this result as normal/abnor mal. Immature 1 % 0-1 Granulocytes-Relative (test code = 2801) Lab Interpretation (test Abnormal code = 89458-6) [facility] (Hemogram only)2020-10-03 04:58:00 Test Item Value Reference Range Interpretation Comments WBC (test code = 6690-2) 8.8 See_Comment [A utomated message] The system [employer] generated this result transmitted ref erence range: 3.5 - 10 .5 K/L. The refe rence range was not u sed to interpret this result as normal/abnor mal. RBC (test code = 789-8) 2.56 See_Comment L [Au tomated message] The system [employer] generated this result transmitted ref erence range: 4.63 - 6 .08 M/L. The refe rence range was not u sed to interpret this result as normal/abnor mal. MCHC (test code = 786-4) 31.8 See_Comment L [A utomated message] The system [employer] generated this result transmitted ref erence range: [...] See_Comment [Aut omated message] 777-3) The system [employer] generated this result transmitted ref erence range: 150 - 45 0 K/CU MM. The referen ce range was not u sed to interpret this result as normal/abnor mal. MPV (test code = 10.2 fL 9.4-12.4 72193-1) nRBC (test code = 413) 0 See_Comment [Aut omated message] The system [employer] generated this result transmitted ref erence range: 0 - 0 /1 00 WBC. The refere nce range was not u sed to interpret this result as normal/abnor mal. Lab Interpretation (test Abnormal code = 46891-3) [facility] with platelet count + automated [id number] 04:58:00 Test Item Value Reference Range Interpretation Comments WBC (test code = 6690-2) 8.8 See_Comment [A utomated message] The system [employer] generated this result transmitted ref erence range: 3.5 - 10 .5 K/L. The refe rence range was not u sed to interpret this result as normal/abnor mal. RBC (test code = 789-8) 2.56 See_Comment L [Au tomated message] The system [employer] generated this result transmitted ref erence range: 4.63 - 6 .08 M/L. The refe rence range was not u sed to interpret this result as normal/abnor mal. MCHC (test code = 786-4) 31.8 See_Comment L [A utomated message] The system [employer] generated this result transmitted ref erence range: [...] See_Comment [Aut omated message] 777-3) The system [employer] generated this result transmitted ref erence range: 150 - 45 0 K/CU MM. The referen ce range was not u sed to interpret this result as normal/abnor mal. MPV (test code = 10.2 fL 9.4-12.4 99934-2) nRBC (test code = 413) 0 See_Comment [Aut omated message] The system [employer] generated this result transmitted ref erence range: [...] H [Aut omated message] 670) The system [employer] generated this result transmitted ref erence range: 1.78 - 5 .38 K/L. The refe rence range was not u sed to interpret this result as normal/abnor mal. # Lymphs (test code = 0.86 See_Comment L [Auto mated message] 414) The system [employer] generated this result transmitted ref erence range: 1.32 - 3 .57 K/L. The refe rence range was not u sed to interpret this result as normal/abnor mal. # Monos (test code = 0.72 See_Comment [Autom ated message] 415) The system [employer] generated this result transmitted ref erence range: 0.30 - 0 .82 K/L. The refe rence range was not u sed to interpret this result as normal/abnor mal. # Eos (test code = 416) 0.12 See_Comment [Au tomated message] The system [employer] generated this result transmitted ref erence range: 0.04 - 0 .54 K/L. The refe rence range was not u sed to interpret this result as normal/abnor mal. # Baso (test code = 417) 0.02 See_Comment [A utomated message] The system [employer] generated this result transmitted ref erence range: 0.01 - 0 .08 K/L. The refe rence range was not u sed to interpret this result as normal/abnor mal. Immature 1 % 0-1 Granulocytes-Relative (test code = 2801) Lab Interpretation (test Abnormal code = 74959-4) [facility] W/PLT COUNT & AUTO [id number] 04:58:00 Test Item Value Reference Range Interpretation [...] 0-0 (BEAKER) (test code = 413) POCT-GLUCOSE [id number] 21:32:00 Test Item Value Reference Range Interpretation Comments POC-GLUCOSE METER 128 mg/dL 70-110 H : TESTED A T [facility] 6720 (BEAKER) (test code = DEVON Serrato [facility], 1538) [address]: Speech Language Pathologist Assistant/Techni min ID = [id number] for Lien Mans[place] Vancomycin level, [id number] 18:09:00 Test Item Value Reference Range Interpretation Comments Vancomycin Tr (test code 6.3 ug/mL 10-20 L = 4092-3) ELIANA (test code = ELIANA) Speech Language Pathologist Assistant ID - DBIf vancomycin trough level > 20 mcg/mL, hold next vancomycin dose, and contact MD and pharmacist. Lab Interpretation (test Abnormal code = 06428-6) [facility] [id number] 18:09:00 Test Item Value Reference Range Interpretation Comments Vancomycin Tr (test code 6.3 ug/mL 10-20 L = 4092-3) ELIANA (test code = ELIANA) Speech Language Pathologist Assistant ID - DBIf vancomycin trough level > 20 mcg/mL, hold next vancomycin dose, and contact MD and pharmacist. Lab Interpretation (test Abnormal code = 00117-9) [facility], [id number] 18:09:00 Test Item Value Reference Range Interpretation Comments Vancomycin Tr (test code 6.3 ug/mL 10-20 L = 4092-3) ELIANA (test code = ELIANA) Speech Language Pathologist Assistant ID - DBIf vancomycin trough level > 20 mcg/mL, hold next vancomycin dose, and contact MD and pharmacist. Lab Interpretation (test Abnormal code = 63619-8) [facility], [id number] 18:09:00 Test Item Value Reference Range Interpretation Comments Vancomycin Tr (test code 6.3 ug/mL 10-20 L = 4092-3) ELIANA (test code = ELIANA) Speech Language Pathologist Assistant ID - DBIf vancomycin trough level > 20 mcg/mL, hold next vancomycin dose, and contact MD and pharmacist. Lab Interpretation (test Abnormal code = 67943-7) [facility], [id number] 18:09:00 Test Item Value Reference Range Interpretation Comments Vancomycin Tr (test code 6.3 ug/mL 10-20 L = 4092-3) ELIANA (test code = ELIANA) Speech Language Pathologist Assistant ID - DBIf vancomycin trough level > 20 mcg/mL, hold next vancomycin dose, and contact MD and pharmacist. Lab Interpretation (test Abnormal code = 35893-5) [facility], [id number] 18:09:00 Test Item Value Reference Range Interpretation Comments VANCOMYCIN TROUGH (BEAKER) (test 6.3 ug/mL 10.0-20.0 L code = 522) Speech Language Pathologist Assistant ID - DBIf vancomycin trough level [...] PERCENT (BEAKER) (test code = 2801) POCT-GLUCOSE [id number] 17:36:00 Test Item Value Reference Range Interpretation Comments POC-GLUCOSE METER 124 mg/dL 70-110 H : TESTED A T [facility] 6720 (BEAKER) (test code = DEVON Serrato [facility], 1538) [address]: Speech Language Pathologist Assistant/Techni min ID = [id number] for Jaswinder [facility] [id number] 14:24:00 Test Item Value Reference Range Interpretation Comments Case Report (test code Surgical Pathology = 104) Report Case: [id number] Authorizing Provider: Sarkis Laboy, Collected: 10/01/2020 09:43 AM Ordering Location: [place] [address] ccu Received: 10/01/2020 01:48 PM Pathologist: Pa Peters MD Specimens: A) - Biopsy, Gastric, random biopsy B) - Gastric, gastric erythema biopsy DIAGNOSIS (test code = [id number] 3220) FuZzEwMzNcZnRuYmpcdWMx tccnRmMVxlcGljOTIwMl hosoWtDKNafAUpP9Lizloe JEerDN7oIN0nwIqkiIJlwK PvHQAnKfNpf7pmf869pMBf b5xhIQPVslafzHc3rPytV7 6vu7E9SgtnQ53zqMKoKQae bGFpblxmczIwIEEuIFNUT0 0QG8lsNOVJAvJAOCXIWnZJ C5LORKpMBN3ET31VBXfdTj jMUOENKQS7AHIjlmb6EHQh WDXDVdUITWmwTAERV2CWGE dJVEggTUlMRCBDSFJPTklD RQwATUKBCUCYCLkHS5KGBA SKDeTYMjIuMb6LFJtqWN4H YGDMES6LQHKLXZPGBAgVH4 xQSNFaxqe5RERnTAGKTYqP OZuXEB1AX39KDKOSNJFEKN 0MJTOyF7zDO80SInYZIsXT VElWRSBHQVNUUklUSVMgV0 xWFXAID5NAZGKSV4ECMgyI PFuoSQFkpFKnMT6wU7AQMX hETsBCMJALEwnfL2VCCR3q OuUZUUHZVhKkVo2QZGlqDP AZWV4AWZNMVSgBAD8IH0SU XJMNE6ffVFStzDMoDR8yAn HYHNDVDkJuQz9MHHPOK3ZD CBTHICCCOzRPFJGHUD3WIW DrjTDoODEdwzGMRoQEGN5O QUNILCBFUllUSEVNQSwgRU 7QY0LIX2SZLdQYEZUUH4LN XRQHA5IESPXYPctmNQEmwU YmWR5gZ5jBHaMGFwDRBTBX V8UsK2cZQEJDNFrBTPWWHr 4HNSKeAV7AF8MATjNwN4WF VFJJVElTIEFORCBWRVJZIE QIS9BUCDUTKVuWTJFGGKCd ciAgICAgICAgICAgICAgLS IMFP3MEtRvELCSBRCQZXVP P02WRUWETA5BZTRYIGRYMU JUTFkgREVOVURFRCBXUElU UYZKJBQUMBEctbv8BBRnKC BXQVJUSElOIFNUQVJSWSBT VEFJTiBORUdBVElWRSBGT1 VxXX4jGCyUX4CPHHmZE0Bu O2RUHX4JM97MDUWkbzt5YE ZzOABQSYcMWZxMCLXFS1Bx KD1GYJUAFC5JIQGGQKGDJZ kZT8kBAOKTCYCDPVTGFKWs X1WxJ1IIB1oRO95XKZTsjr 67TCB4KvDlq3G6PXT3WVLu ATMtl0wrDUUfrCPgMdMkMl NcZnRuYmpcdWMxXGRlZmYw e4ezi935tDLtv5mnKPNmLm V0cDWoPFWqjVCrC109QNFb SDcev4cjo8MjTOZstTYsl6 L2VGUYexingYs9zZwjC63j g6P0GxtbM1raWRWpQHOcQ7 KaMB2bNSKxJue9ABA3JFG2 PAFrFFHcQ5GfDD6hBVZhoM EkEKl3t5nemLghUMStBUJ9 y3zrUSbjlwOqMF5okz2nwO v4t3hyhhTrLYGuGRGqiVOS JWMmJ8DviDbrMm2cbMi2vF hcSpikPAA1Myc9GI9baz41 tui5mIxiABBswxouFtQ5JS ykXRNfptyrHJu5XOzqTZSw bFN9UJMrhIVnZ3LvWLZvBJ 5tmsb8OLD7TDolXSKaBjR3 NDBcaGVhZGVyeTcyMFxmb2 63VJU1TgGaAW9xT8Cgz7F0 aH8enRYoLWNowXGzJuYiDY Nevi7kjGMaREpdj9GuUTV5 vjY6jRZroZAnQEAtQjX3NA bsSP5zpr32NRQlFMC0pl5e bGNccGdicmRyaGVhZFxwZ2 ExJOIny789ZVZsO4XmACQv k0B1coAsRtAaQUEyhZK4pp Y2NVYwNC6rdpvqb3tiINyt KWdoWTCyeeT9xzX5HCGqgC FzL0FgmL7yUXMzLT2rutrp w7flHYI0GOroSGGgGMV8Qf UoESFcx9Iqdqd2DuFke6Qi tPSuPEnhX38ha955KVKqdq ZkH8mirSJrugzhxYCjnqrl ZWpkpaK6IUYfHJlrtrohTR NuFYszO5bhKkQsTDNupRlw MBpcc9HaUKLeHCNeLeKtvN SkGNMwRyh2QKXmkTSqAOGl XoMxC1jhkkxnCpERYXOol7 yqD7tuyPRXqJGqG2XgBQcx npWgPLmyQEydJDXtTFF5TS 57EYajPRXioh79 CPT Code(s) (test code l6fseGQuDVTnlDD2DgOuUD = 3357) Hjs4vbv9HpfQAdjASkZFgl jJLpvdIumg56cUJ0pE16BE 1mXFPiVhT4VZPliuH7Ifb3 TOCoWGJlcUCuH554t2fmj7 uuzpNygKI8yUvlCKLaOQQc YWluXGZzMjAgODgzMDUgWC BaFPB0EDHwSpAHUbbjJUS1 CLINICAL HISTORY (test a7frgIJcEWFpxVF4RzObKT code = 3356) Nrr8nys2RovUClmPDwHJvc dDUmflHqia34tHZ5mI85BA 6iCIHoByF3RFNkeqL3Xra1 PTRjMTXhsZQvK511z3mkf9 dfjjJkiRK9jSorXZYcCSDk PQcdNCZzRwStkTXoCX4sXD Bhcn0= SPECIMEN SOURCE (test o3hxoYKvNLIsfGQ4PwJkNU code = 3377) Bgh7sgg9KvuHRvzXQsATfr qFYkamVpig35mDY8pT03DZ 6qNZNdKkX8CLXimcF1Ars6 ZMUmOLMjiOFhA972m9jzu1 wgeuLffIQ5tCqjXOZcZVAy FDlzJYDcQbPmKJ1iSIkwr4 JbwXRznYpaIMAOXkIjQ5Ip aJJxJ7cnPPG5 GROSS DESCRIPTION (test e7jcyKTlACKvrUStGbHaNS code = 3366) DcFTPiw4vmSNQgfWGhPwLu MzNcZnRuYmpcdWMxXGRlZm Zrq0odg710ySEmu6weJTMs SzQ1fDIzREWauFPrE421a6 neq7izztTbmNC8LCYiHZQ8 HNgtzaBetcV8CSuuwKUgUi B7YIdhniHkBSkmasIstjFz Quh8QZUhG620RTE6xZnzo0 cbMOX4FBHzINOzBzJiUi8k lDTdA841NWXhJEHOZPUvhZ h4BMMicsKsclNpbXEEg733 Y639s8hmEFKyvdWucVdJnv crh1vcB946EEPfeIDsusDu LvMuCNBqeFHktIW4RQGhFH 6nkghgCiPrJQ4qwmhiAtGr EW2cawm5JeRyUN4zrhwbXo TeDYmmACNdlcwpVQGfu2Pd chwrQU6yI7Xdt5O6sU4qyQ BcNFEshAXcYbLhJEYriq9d gWTbVNysz4AlZUG6rmB6jY KqnOWjYSSoMR94Unklh4De QevqLXE0BCTgpbZis4Kpp6 ogMlTjnlRgB9ubX0PkFGGb HMOgGLAeTaTdnxYud5Nkw1 RscYGxwZs3d3ygTWEhVIDc vLgwt4ovKJF3ZCYgU2R0cY Him3cqAXhxVGFuuSW9cxbw YTcnJTAxgjP7npegVLquLE ExoIM2eqzbPKqtMEMbScP9 sfdhLYvvDISyGKH5ZVasv6 69LFR3EMolFalhXVcfSVUq bmNvbnRccGduZGVjXHBsYW luXHBsYWluXGYwXGZzMjRc pVamoKxkqJ0mAkYzWxSpIO jxBI1sFNVuP4ivrEOkMFGe EOWbD6asSjYbfD5xcCfoIU xmczIwIEEuICBSZWNlaXZl PDCopqLce3ZpATfkyvTxXE LdmUTaYQHySKOpBWMkMI44 Y8PavqAbSXtwCFBlXTOxoA 2bUS34jSMiksEqilTgFqzv g5XkoRRzBwtsbWV2FmGyqp IpFCZ2HW5afZvqyhJ7pXDj fTYpYtVnH26jsqAwHX4xSV T0zscsNpD7iIQ1jiIyJmDv Z47xpT0oG4JeZBNxd3YcCK rxUU0tiX8lHWgfcFFySFMl GBDvcNb5RJIgNJSbsbQrs4 GasSn2hUIdTDzbIPYrvH4s xD8lEGUiQUUlohdwKUOpLl 4sUCBkR4KexuJjOInhXCIh rb4doKmeMKxeXkIcLTZnfF mnPDPwgQrbxgUsryAbVW1c MDXoM1Wem8Yfk40nsfFeUs RmTEJdBRSzH8PlbLAtUaXc aXMgYSAwLjIgeCAwLjIgeC BiKeUsY51fnQZaRYEvgqik vSnch7PyVWNxQDwaFR79YM doaWNoIGlzIGZpbHRlcmVk YZYjEGJroLKjhWB1UFFeaY 0boE23jaZghnMSQX9vlLDk ARLfbfEMtLxyjwEFdrb7VP xsZXMsIFBBLCBIVCAoQVND UClccGFyfQ== MICROSCOPIC DESCRIPTION a7aggAEhQNAldRK6KqIbFS (test code = 3371) Pzo2qno5KktLVsrDReVWzr tUFgudQxxi73zQH6nS36OA 8vHVChZpV0NRGpbxH5Tfa5 YFAlJQWvbFOtJ324s9ovv0 xjyjKojEH5sOgyCXCcEEFu VEpwRIHsQmLiMHFeMg7weE VkLlxwYXJ9 SPECIAL STUDIES (test m5yxiHDcBOHew1tbORGvcR code = 3376) FuZzEwMzNcZnRuYmpcdWMx UTatvqXcLYvil3KbR9QqSq AwMFxhbnNpXGRlZmxhbmcx IUXcCHI2ytYaNWVlOMkdSV AyUPjvXm9ltUUzjKjiWoIe DFKxt1hjkiURruzxsWi8j9 avEAVfFjV4rCQiLAkiO6fa vfBqeIYkJ4EevVRmhPl5w0 euJxUsTmG5xVGbBYrqW4hb txWxiDQsEZOjRLk9cJ83CL StpG1zvRDjMTqwcbImYiG4 HKghJMWpLmC8MVGevHClKO OzX6ayXRIyHOzzKNAcXHif cYDuKZJ7iTzeh2W8xNMogF ArrVndZbCsUfBeDfMXj4Dd LPg7yIgkQ3XlRJWfRvS8oT QgUGFyYWdyYXBoIEZvbnQ7 aZurulMlg38jlQFhJARxYS FaTaJhdDmjYBUjRCCUz2Pu cZngMPM1gYo1lHluDjjpPM M3Jja3FV1hvi74vzv0wTnq NXFdwkogGiG9SDovGUEawt mgNMo9PCxhISUecVT4OIBe qFGxA7NpEAYnSU5nozv4FU S1XQejOMMjIkE1PHJsmEPe LVRbvBncOPvne232ZNV7Gk YxWQ6oK9Saj0L9hH7osUXv XTXzdYKfHrTcMVOsdx0ruH FlIJqon1MxYKA2hmY9fRKr eUJuBZFbTC13Ugtde3HbUc sef0NnY37quMN5GKxvz6mu GR3oCaB9ewIfCSpbm3efpV 2rHdP7OBezCY2qMF9kXNJt dG8vnjypCRPyYhSesvbzND LayOeykgTzIz3clZpzPCT7 CRezX2ucfC9qHmL5WGspH2 griY5kIOt3IQtetZC4FMOq yY7mMS2elmywz1gsPVuuJL bpWEIqyaH7yrQ0JDZvnUIv I6PdlI5mBWZbGY7pyxjit8 eoECA8IEpeHTVhYIC0FsRr MFPny6Mnsdh9QuQkt1LflW GqIBuqJ21an766KKGaciUs Z2xugBCoffdthMBhurovVS pkqvS5WRTzQDHpUDpsXWUv XGZzMjJcbGFuZzEwMzNcaG ljaFxmMVxkYmNoXGYxXGxv R2utUkGsZ2WmTGZgIaNuNU hvDJbbqYNelVNnfMB2bD8d OE7qRCMtjZHfR0OuSCJhqq MzbKDoGFU9mTOygIUwEJ0k OHikpZSfz2gtd7SyY8jasQ tnaUO5HM6eYSNhUKDhYAsb g5MipR7kVzqkdLOwhkqbLS xmczIyXGxhbmcxMDMzXGhp E1ppIfLlPIJghKjpGWzlj3 NoXGYxXGNmMlxmczIyXGx0 cmNoXHBhclxwYXJccGxhaW 0kGbBxMoOkQskhUM2wMRNr X1xynTAxOZWfHDLsL4nxEt HfpC0gmKuxCLetAaTyLfRx HnXMw971mq2xMHKohTQuqn GGaMGdlV7kUUvtTMbjFDra iZWfXPcnq9uzVYNbo9b4lH PkAXGyipTaq1bmSHrnghId NZOzpHOmkOPxNQCxf91vUS qlrKnimQqdSLAwg1JukPuo t6UvMeOcVEjwj8KlX82aqT JvbCBzbGlkZXMgcnVuIGFs i71lt0acZREhDqC9cEVozT I1pUQdvEEqx8KxtNhfWJGw s6aeDAUgxu3ybxmyyNVee9 XlgB8ttpliGLfduXOluiJs IYPmp0h6wNWvGCLrYMMjYF xjsJx9GHTjk667fr1icgX1 fOLvRZM4PVugJSTyNFNscs UgZXZhbHVhdGVkXHBsYWlu XGYxXGZzMjJcbGFuZzEwMz NcaGljaFxmMVxkYmNoXGYx IVcmV1zfMkLpG3BvPLMlKn CxxULoL2vwkYWyHPUyTMwu XGYxXGZzMjJcbGFuZzEwMz NcaGljaFxmMVxkYmNoXGYx FXkcH7xuMaNdE3HfULClZm IgIFxwbGFpblxmMVxmczIy KPkjckjwCUPnHLevB0piPv IjMTZcfWzcVQrer3ElHIDv DOMjUwxtipZoLIy8hgAeSV BhclxwbGFpblxmMVxmczIy YGfdufkuLSMnIJueU2srCl YzMKEjmJqiJWpif1SiRSTf XGNmMlxmczIyIEltbXVub2 gik5TqW8vznFznxDD0CIAc B1vanMAfqHU9YMT4hM6eIV banoZcXTJoh7UbURLuFNJn LsF5pQ4kXYX3PoGPfChyGS BsYWluXGYxXGZzMjJcbGFu ZzEwMzNcaGljaFxmMVxkYm RaPRWfJDnsX4jjBqPwW2Yz QXEpCwLonQekVTylBYu2Ol xwbGFpblxmMVxmczIyXGxh mqmeUUKwJKntL4brWpNdFR DroHyuICjjk9YsRQXmIDOd MlxmczIyIHMgTWVkaWNhbC VIQM02EAOnLJDmnOlfeS6m zDGOKSYbnuS6g3K0FEwqMR XjOJq8PDensyPrGCIfhN2r VUCeGF8vRUa4nkUpXZJls0 HwGO4oQNSqgJZdDXO3MIGf d2LjM5Flp2XdBSHvOHRuxk 6adcXrBwCKhPPlACJytj59 WDTtWV2mA2btAFZyNQYiju JlpUSrm7XnGFAjwEC7eCIj FA4JTxVFe59bKVOmVUFCaf XwDDXfwCcpoWE0hfL7kI7q LiBUaGUgRkRBIGhhcyBkZX Vwsd8ctxCsCIIaNADlu8Fa eYYfmVByafFxU2Hfv3KbQZ Pqlq08YFgftZGgud66VO9o S3Uik5TywY9mLSaySGYjl8 BbbKOogVLhVLCuq1SrK5kx hnldWHvrpWJauV0mWBZhXJ f5AZRph2JiNZWoa6YySgNw rbVjIFQcDWZmTTHbzH99EW C8rLropJmbqhUxYS5rXNHr trIxQPYkIYBfiR6gYLlpjp HnTVLvwyM5n7J8PStcAVYk aqYmPbjiETX4weGymtK4uF EtJ3pmitnaCFqmRSWef8Gn aT0ohDXTeZIwr6VvtAJjwA NWyVRgUC4ygnZaDJ5fTAC1 ODggKENMSUEtODgpIGFzIH G1UPfoJxflAPE3saXfEHJz m1JiMUmoJ5laZ39onEygyD t3hLWmdDuoxBLazINwOITz mkL4y8G3ZLVms9EocdlbZR BsYWluXGYyXGZzMjJcbGFu ZzEwMzNcaGljaFxmMlxkYm AmFXNlSUkjL9rdCuLcIsDr YvnqGNY7oN== Gross assessment was [facility] performed at ([facility], = 2777) Department of Pathology, [address] [place] [address], Technical component was [facility] performed at ([facility], = 2778) Department of Pathology, [address] [place], [place] [id number], Professional component [facility] was performed at ([facility], code = 2779) Department of Pathology, [address] [place] [address], [facility] [id number] 14:24:00 Test Item Value Reference Range Interpretation Comments Case Report (test code Surgical Pathology = 104) Report Case: [id number] Authorizing Provider: Sarkis Laboy, Collected: 10/01/2020 09:43 AM Ordering Location: [place] [address] ccu Received: 10/01/2020 01:48 PM Pathologist: Pa Peters MD Specimens: A) - Biopsy, Gastric, random biopsy B) - Gastric, gastric erythema biopsy DIAGNOSIS (test code = [id number] 3220) FuZzEwMzNcZnRuYmpcdWMx IHtccnRmMVxlcGljOTIwMl qfhfEfLTUrnILdV3Yugkhg AHnbTB2pOT2lxCganRXzyQ LdIWQaAyOck8vgd682yNWd c8niWCOLbqofaDe2gGweO9 2fy7N7QscxR54fmZMyQOqy bGFpblxmczIwIEEuIFNUT0 1MS7voUZPBUzLEXJATWgRH C8OBYEcPYN7AE18VQSjzYr hUGSYSSNN5YHBlcdb2LUXz DEAFZyVWJEbfGBPSO0UTZB dJVEggTUlMRCBDSFJPTklD AHxQKCJYWOMSDXvLI6VLBR LFWzVBTeMrAp7FWRixMO3Z RPVWWN2JDXCKUYBRPAyLZ0 bYZKYijem6DPRoHZGGPJnY DYiINA5MI33JFCMKOIXRYT 3SWZEuA1bYL85WEjXGZnWD VElWRSBHQVNUUklUSVMgV0 gMPMOXT7WYGGGEH2HZIdaF EKstFJLfqSOrCI4fR5ZOFR nMEqGZEZRBCfmiQ8CZUB6n DyJDTLLZOgLkXd2ZLPwhYP ESFR8VEVYHQWyZVD0QP8GJ AARVA0mlYPGcuGAwGW8fSy FEKZOTQgZsMh1KNEOCO9LO HLKFQBMSAkZKLIQHIJ1WKB RjfQFuFZQspyBNQwDRES4A QUNILCBFUllUSEVNQSwgRU 1PE5IUR8XLJnPHCSHWO3XI UATJH0EVREMPVjepWPOlpT QvYY9hM9nDHbMDCdWSDJSW S6PxF9xCXESXYDgQKFYCYg 8LOSUxEV4PY6MYAoEfK9KN VFJJVElTIEFORCBWRVJZIE HTD2PTDALESQsWFEELNEXq ciAgICAgICAgICAgICAgLS SYTV9OPzZvXXUBZJGKIBWX B26ZVPPVHN1HHXRIEDKQDI JUTFkgREVOVURFRCBXUElU NYUXZYAWRNNxfmc6ZPXdRY BXQVJUSElOIFNUQVJSWSBT VEFJTiBORUdBVElWRSBGT1 CmCC3eCAtFZ3CDEAkLC3Yc H7VEET3LE29EIJHpuwg4WP IeVCTOQJeHJPeBZCQLS9Rk VL8TRYJUHC6RHDOEGODNIB qDA9fFMORHCVLRJJIQLFBl B0YsW3YZO3nWJ02BDEXpqf 47HKX4OzTvn1L8JBI0CWPj OTEng5clNTEitUIcAdJkUt NcZnRuYmpcdWMxXGRlZmYw j6unx384rAGbp8iyCAVoDj T0eIAkKOTafCReM774IORh RLyrr7suk2VlBLRrpTSpy0 T7KPIUajofgIt3vYzdR31l q7W5DsiiO3tzZZTkPPOeN8 EcPC8jGLQtIqi8BBE1JQP4 QGJlTQTvE3OhEL8wMLVipM EjZFp5n8hxuSvzSNObCAG5 a1qoDAonreAlRF7iul7yhG i7o8ugydEuWVNeQXKicGKO UWFrP8AqqGnsZc7twNg0jT mwDvatRGI4Fgh0RV2did60 hva7vFmjYTPhmzqzLpR5IY ydPCXycwqeHOs9GHooBXLe yWU5FQMjyEGaB2FlQONaQF 0bwzq8OQT8KYkcHZJdHrY0 NDBcaGVhZGVyeTcyMFxmb2 11EHP3PzSpVO1tS6Jtw5E8 sC0kyBMoONCnfYKyYxEtNL Itkw1zsGIhBRkjg7EiNVL6 rdB3iHLhyDXoARDiKkP9BW ryVR4fea52VOQxVOL8la3f bGNccGdicmRyaGVhZFxwZ2 QgPLXnt207RHIrJ1QuBDKy l2X0ryOvIgVpUYCfxKQ7hz A8ZFQqCD7pcmfxu2mySWlh MFzpZUNkjcJ2txC2CYDceL WgY6SzwF4qTKKsOR9cyrhp i4sdGPD2UXcvUELoQHJ0Pr KdHLTdk4Jbdnz7GwJlt0Ev jEDmITpzO55rs359GJMcaq RkS8jymJOloddlkVZzpqyj TRuckoX0YMNcHNtqahlrXU HsJHcjV7qbAnHqNKGgmYvj IZdnw2MmHCVvIWGkJeUgwV NxHDSsQod3MJUmxEPjISUp HwFzY0rjqnxqUuYNLSXnf6 nxV9eisCBDiAXlG4XnPAtq xhYlRQwxGKwfNYTjEDG5XO 60EKpuOMKoir13 CPT Code(s) (test code x0hknFPiIFSylPJ5WvBtOJ = 3357) Qvy0dzy5BfdXDylJOxTPll lAUmnlSrdl27cMQ2tE39BN 2wIGFuJiD8HHDmgkU5Pbo5 DDVhPIPzdXAoB522u4lqd8 zkjkPoyWH9pZmjQCFdISAu YWluXGZzMjAgODgzMDUgWC TyDFR2YSEvKuKZBmioELJ9 CLINICAL HISTORY (test v3nerXUkCLGcqBZ9AfPvJI code = 3356) Bks9fwm0BrfGQaeHZeKPzg wQPwiqMqup20sRI3xL70YO 9qYHOpKbA0MMMzhxD5Ecd5 DJTxBHCtxCHmB351w8beq6 cjvrYisSL0iAevPHGiNTPt GYlzXQFnGxNgeTZrAO8zXN Bhcn0= SPECIMEN SOURCE (test g3fggAUwUNBblXV3HnQuMJ code = 3377) Xze2epr7PknROmtTSwIHoh dLPkrhBgpr54eHG3fI70YU 8hHSTmMrI4QSLmxfT9Xlu0 XFWqGRQfoXBgH133m3zoa7 logcJzuFQ6vWqdMHXcVVJt SRtaTZIuAoIeIK5nSDjqf5 ZjbHCxxVmmMOPFUpYwO5Wi tHCaX8ogPVM9 GROSS DESCRIPTION (test m2dqbPAxQJAusRQbBfTcAO code = 3366) ZsZZVju9jjNELxeIZfUzOh MzNcZnRuYmpcdWMxXGRlZm Wab4ppg581fXMgh2nyAVId PeX7lFDdABFdpCWwF253n4 gdm6lltqDxeJT0IFCsSAW0 POfmmhKqmfF7QCgwpPWzXg K7DBvavlCoLVlgttEdbwCk Leu4YOBvZ533VFQ3eKcxl3 yeJRK5FGWlSRQySfVuJt8i zUHgA209XCWpLKZHRVMpeM h8AGPtefVkbkOuzQSKo205 N985g2xlZMQdzcAgsLdQap rfl1weM735MWLhkVEgumXt HfAqOKAlhIXejGD4OOLcAG 5ysxwkJxFkWG4futfwKqGu TE1wqwx3FiYrFP8xpzgqFm XwSGdhIMXnstqxATOpl7Fw slpmJF9uA9Wit0N6rH6bfV KoPFJgcOXeAlRdVKAqit0a bRQcYCmzv4NjFDC4gxQ4zS VkuZXeEKSyPM91Etlay1Jk GhwcOZY3HJJuxiGhi9Hxf2 miTyJwpkIlZ0tsG4HgAFLz CNKhUMCbBlRwcbKvw3Rld0 RehZZmtPh9v5mmTSYhYFBj cUkli3goSFU7EFDcB2I5wQ Vkj6hcQVrqTGUucNV7jaln WKthMTDhrpW6retzUVeiSF AntQL6xycpUKgvAZQfRmD0 bjzcAFxbSGGpXQH7SGtua6 23XNW1RSleWhmyOVuyWBBy bmNvbnRccGduZGVjXHBsYW luXHBsYWluXGYwXGZzMjRc xKxbvPogyR6cFuIcXkYdBB maNM8gWNFdU5fmzLVcSFIk ZNCzT4atWzKrbU0ilTmqCO xmczIwIEEuICBSZWNlaXZl VNUdohOjf5VyJGzwviKtRQ QsyCSaCSIuIUUlJJWsVV75 O5OxgxDuZUzvOLLmJRBjuC 9kLL80rNKnqkOedpFaBsyv m3YqjZDyUskuwCD1IkYvib AcQBH2RL4cuMtluuT7qIUd sDAbJvZuK24qmnAdRT7lQH N2zboqTsC2hNP0wjYuPuGr B33nuP2aC5SgRJVhs7QgPI yuGL3scH1uIZhlxZLvGZUg AZBwtJj0LBKaJWIcngRvw5 QurOr9oFRfDHxcUDIggD1n tP4mSTTtYUBkppbyYYMoWu 1pUMAmO4FgtfYcYLjvSSTy rp4pkGknLLapKhEbVRMofD ybTVGunBulwuXcqvEwOB7z YWJjX3Uzw8Yus48qtaTvUs OsIBTdHPQoA8DahARoUkCf aXMgYSAwLjIgeCAwLjIgeC VmBpDvX23bvMCtPPAiwnln sBwjc8DmBEShZWsaEL62FF doaWNoIGlzIGZpbHRlcmVk LSWdDGZyqFQymGT5IXNzwQ 2dvC15qqFoegRQUF8trOFa NBBshzHBpDasgiEUzxk8UO xsZXMsIFBBLCBIVCAoQVND UClccGFyfQ== MICROSCOPIC DESCRIPTION f5fytOMsPGChyII3WeXfCO (test code = 3371) Rnr2dip3GhcSApwHJwRRqm zQSaduBbgq67jFU9jX72AL 0lLMTbOyO7CKXalfF6Lgj7 OABxLRUlcKXyC583h8nju9 xvvzNtpNH3yWwlCZBmFIVv KEbdAVSjQjWyNXMwDy9jnH VkLlxwYXJ9 SPECIAL STUDIES (test p5ytsJZqLFVrm7ivHCKdpC code = 3376) FuZzEwMzNcZnRuYmpcdWMx QKvxudPgQSljp2FpU7BzWk AwMFxhbnNpXGRlZmxhbmcx GUTlBIT2ggZdDAMgJUlnKN UxTLwzVa6vmCJwjOfqYzIu VKJce6ocbdBYhmyydCq0w5 yzMOAoGuO6tKAvAKgtY7ja vkQtmWOsB0MnmRCykTm1e8 sgCzSrQjP9tIMaFRkrR2fw xfSptFLpUQZcCYb5zJ32JF UapG4ofILpSYbxxqIbDdP0 KZhaHVHeRhQ9CPPjgAHhIS PoW2ixBOWpLCfjLIFgXOhj jHRoYPS8hKrub0G0mWTztZ BwpYglQfFxCgRdGgBSw6Ie HBr8kUyeT0YtAWHzNvL0vB QgUGFyYWdyYXBoIEZvbnQ7 yRlfmzAoa25fnHKvGQDjHU WuOsVudZryIRLdBZYUa9Lv wSunCIQ4sOb0bLisLiivGL A4Rha7NS4rvi76bqp7jZrm WIMoehvuCkM2MRgwVPXpqv hyCQv0DFvrWADzvHP0JXKj fMSeW4TiVKLdKU3kaxt9RO L2TJmdJQRfWwT8RMOcdMKr QKAtzPnnISclm490ZDA9Qn TqBW3wM5Cnt7W7cW0qlKFd ZQLyvXSkRiMkIDRipe8ndC SgDNkfe6JrJFJ8evJ7fMSk bQAvUSXtBJ17Zqxyk6JfSh hru0ZaT25szTR9TRshu0le EQ6vNhU2pgZjMUvwj1towJ 3vDrM6MKqxVO8rRL7xBIGo iL5qfztoERTgZaColrggUU VwiHhouiDeIr3iqBunIFS0 KPjjN8jioO3pKvS1OHfcQ9 xqrE8lVOp0HYaymPV1ZDUu eD8eHD8pzamfy2tmTRuuYW teTDRdccZ9ozZ7VUYtqOYw S7BtgC2gCZOySS8zowvzv4 esHMD4NSczLWLgGIK7BaVc NJPgt8Xbhwv6ZjNwm5PdbV YjWHriF10kp141SDOncqSz R5grsEDkysrioPKudlswHJ jixnR8LZWeCYJpGWbdIKYq XGZzMjJcbGFuZzEwMzNcaG ljaFxmMVxkYmNoXGYxXGxv T1mkIcWmL9OfNIFjSsDuLO muANyinJJalJLfwEP8lM3q DA8nVQAmaHMxC5PyOCOcmf McmJSiEIC0wMTtfUAwTW1t STcidETif5xfi0RjP4mddN lnvPK0KE6bYRDkYNEgQRbo n2FhdW5wJxuydENhbavgIY xmczIyXGxhbmcxMDMzXGhp S0wsGwDcZJFpcPapLPpny3 NoXGYxXGNmMlxmczIyXGx0 cmNoXHBhclxwYXJccGxhaW 8zWyGaAsLvCerzAA7sTAEf X6oraOZoKOLzQUXlA6vqYl FeiN4tcEugWLkeUhHgImJk HzLIa256ls5wRJAslDBquu UWhFZntL0mCMpaNEbdRMhu iQDiAScde8kzPPLen9r6qH BwBFCimzQku3ihUFjoleWj LSErlCCsxMQjXZOjk32fEY xefGcoqGucMQTju2MiiEle l5GpBeHxUBclf6PiO33pvN JvbCBzbGlkZXMgcnVuIGFs i24hj1biGTDsScD3uKGbpU A4gDObeAUnh0QliRzdBIWc t1ssUIWaeu2btxzpmQHjj2 OvxE2mxratBYphfUUzcnWb VIBks0t6pYDiXZBfOXSzJT ctfSu3ZDPck206bf8vdoU9 kTHhEGV4YQjoSKWtRDBdbk UgZXZhbHVhdGVkXHBsYWlu XGYxXGZzMjJcFuZzEwMz NcaGljaFxmMVxkYmNoXGYx PYldN6fmNyAeU7WjHHIkOl EqdMCqZ5fkjBTpMACzSCnm XGYxXGZzMjJcbGFuZzEwMz NcaGljaFxmMVxkYmNoXGYx DVeqB0rxSnBeJ1DjROCfUk IgIFxwbGFpblxmMVxmczIy RLzrrfaxGGCzCUspE7eeLe ZzVOWsyHziJBdbk0QrOREr NQLzHzxmieUnZVy9icKdJE BhclxwbGFpblxmMVxmczIy PLmjjxucEIPhPSriX2vyAr WfVSZxpCcbFNkad2HuVSVq XGNmMlxmczIyIEltbXVub2 uiu1GuO8obxZdlfYX0YDCm N5zzqAUisNZ5HGD9iA8vUK erceFxBVZil8AcWKOaBDOz RyJ4pC5uILK6FyDJjWcfHW BsYWluXGYxXGZzMjJcbGFu ZzEwMzNcaGljaFxmMVxkYm AfKZMkYJibJ6xaPjBfR0Gx QJOfJyBmwTxjSNllSKm2Zv xwbGFpblxmMVxmczIyXGxh qvrwMXUnNIlnB2plZlVkAV TehDvhZIlst0UuJDTfGBGs MlxmczIyIHMgTWVkaWNhbC AOJP63XAVvFDMfkFbkiR3y uJJMUQUeztK0p9O7INwqSA HrNEc1XYwfceYaZLXvtH6u NDOoHG4eZUs2ufCbYHTgm9 YgCA7rPBArrECrBKM3FXQa y3RbH5Smx6NjATQnKJPtde 8pwfNsUfBIgMOtHKWzib52 WZNoYV4rY6hhMEBwVGUwzf FyeSZkg3NfYMHucUE9aCFv KM5FRpRIo30hSWWtDRVNyp YxAFSehJdrtNO5qcE9cY5k LiBUaGUgRkRBIGhhcyBkZX Plog6ophIgICSnPLPpk2Af kUDxjQPwavQyO5Fyf1JuYY Gplx64IKrvnZLunc81HC8i U9Qwk1AliR9bRDaqZOBrn1 QvqLKavCEjIEMmq4NyY6hl jffxLLbpuKQboS9ySFVsTG v2TUUjg7ViVSTsq2ZpDpBw aoAjBILkFVVxWWKzyV19FO W7iBjzqUsekyAiPE5uITDi znHcHATqAAOqpT2bTWvvtc KvFXDtloL4n5M7XDftWATl enHlAofmNEA4dqJmigW9aJ PkN4haegysXNrdWZAkq4Yy iM0orRWFsRBvv2RciQCmiP BRwKCnHM1ppbZtKU1aWNT3 ODggKENMSUEtODgpIGFzIH X1OHeuMnunEQA3nxTkKWOn y6RfJJngZ3clZ22ngEmgrG y2eKMyrLsplDSylMHgZSEl cqS8m6F4KQUeq7HklbreFG BsYWluXGYyXGZzMjJcbGFu ZzEwMzNcaGljaFxmMlxkYm DsHQWxQDciD7jyRzGsOkZl PdpsJNJ5fQ== Gross assessment was [facility] performed at ([facility], = 2777) Department of Pathology, [address] [place] [address], Technical component was [facility] performed at ([facility], = 2778) Department of Pathology, [address] [place], [place] [id number], Professional component [facility] was performed at ([facility], code = 2779) Department of Pathology, [address] [address] [place], [place] [id number], [facility] [id number] 14:24:00 Test Item Value Reference Range Interpretation Comments Case Report (test code Surgical Pathology = 104) Report Case: [id number] Authorizing Provider: Sarkis Laboy, Collected: 10/01/2020 09:43 AM Ordering Location: [place] [address] cc Received: 10/01/2020 01:48 PM Pathologist: Pa Peters MD Specimens: A) - Biopsy, Gastric, random biopsy B) - Gastric, gastric erythema biopsy DIAGNOSIS (test code = [id number] 3220) FuZzEwMzNcZnRuYmpcdWMx IHtccnRmMVxlcGljOTIwMl thgrOmQKEjnVAiC6Rjakcx UIyaOH0cZM8mtWaqrQGpfA HfEBAiQqBzn4omv968mGOj l9dbMCQXudsjtMo5vShnZ2 9kw9T3XrucV33llFApBFbg bGFpblxmczIwIEEuIFNUT0 0CO4jdNEXXUyLATEFUDfHP D3CXTCjAGE5HF40QCCtfVf kYNFDLDGB4REOxdta4TWCn BHQOMcUXCCdnAURMN2QLTN dJVEggTUlMRCBDSFJPTklD VBhKUYNONFOFVFwCQ0GNAZ IOTjIKRlYmJs6HUWbaKQ4B NSHUVY1PRSTSYBTQJAeJI7 rTFSGkpnb3GZKkBCRVEKzP PYrODU5JE42WTCXQASGQKM 6ZHPIiU0vXE31HPaFMGoKF VElWRSBHQVNUUklUSVMgV0 eCMJEEB8JYBOSIU4FIJzbI GWpoGDUzyVFuPU7rF0DTNT uENkUMUUCUYcxoX4IFFK6s PjLDIFOCYiVpOl9RYPtqMU APPF4FQCLTSRsEQS8HI0DH KKLOV9vsZEYvsLGmFI7dUy HEPRHREsOsCc6ZUILKO1RH JXPJTXHQVbKJECCHYX6JUT LhrDExZMWvzjYCRiNPYX5D QUNILCBFUllUSEVNQSwgRU 8VZ8SAU8BFTxRVGWQQW6US ETUVI3RSHSXCKtyeXPHatS TuRU2nO2nWUwRIDoZSTQQH D2VfM8iVCHJNRIzYXQKCQm 7DMZSrAA7ZR8ZBHcCcT4CY VFJJVElTIEFORCBWRVJZIE TRU6JMVZZLYQxIKCPLEDXp ciAgICAgICAgICAgICAgLS RCNQ3ECaQlPVJVDGFFFHBY L19VLRHQOC1PHAXBOSGRWM JUTFkgREVOVURFRCBXUElU LTIRIZPNDROfcqh1ZROoAA BXQVJUSElOIFNUQVJSWSBT VEFJTiBORUdBVElWRSBGT1 GhHL5tFOfOR8GUBKeEB1Xy X2ZYAZ1CD03ALPBjkio7XV BkPVHCYKxVWBaIYVJXR3Gu UG7JYJDXXT7GDXGIODOHTQ tIO5vIFLKNZGCYQUJCCDMn I0OvS5WCN0mBE29GPJGzjs 46FEB3BiFlz9X1HCY5NJJn HYCzx6qqTZJfiQRwVpEjRv NcZnRuYmpcdWMxXGRlZmYw r8mjd764mSWmb9kbSAHpHi B5bYPeMXOxjHZfN099KUXo IJcnw3rcd9QhRUDtaRWru3 M6HJYYblqheYr7qZluW52a d2C8EvnoH8vcDCSlHLIdO5 MhRH1sENEvRqy4SIM8VTX9 CJSiMOLjV3WfCI9hGOKqmM XgTBo1y5ipuHqgPWPrXLL6 c1dfTJcdfeSjPG3nps1yvA k4y0gzjiQrSSXdIDYxkNQC AFVfQ2HnfVrcGi5caMb7xR pfNrwvYVU1Gdf5BW7gpc23 dqx6rBuoZLMzpdvyYkN3VW drFPJdipdnXFs2MRobYPSy qHQ1PKKacPFoU6SeURCwGW 9qkcp9ASL2OMydBZPeDfL4 NDBcaGVhZGVyeTcyMFxmb2 47PAJ3QkEsDL4uZ1Ngc2T6 tW2skLHfLFQrsZRsUmHoDM Uega0hhZGxFBqcq5JoBWR9 itM4yQDylUCjNQFoAyX0KW vjST0qul94OIMkDVR0db6l bGNccGdicmRyaGVhZFxwZ2 PgVABrj397EBPrL8AqYDAz i5Z1pnUyKyWmKQTwlIN9cr E9ANKiFT0jzrsts7qlKBky MMgvJAXezgX3fcJ8FOUgdM LlT5KcvR1bASNfCI0vzprq c8kfUMY5LJxlZPEoMZD5Cz ObBDVub1Hzqlk5AcDfa0Ak iNLqBErnA39nx679GYDxxz OlG3aomDHextlvoBZxcmrh GUvhqvY9GRBiYMugjgtaUO FaJEvyW7znPpSqYRJzcPcy URmlb3BaQCAuNNHxEaJmoP ThDWHxPkv4IMNsyPCcAYKy AdEeL4iksvdcSlGURYDqo3 oyL5yzlWZBhIPtV2PeAWev pyBaGYfwCVhlCENcHGU4LV 19EYqnOJRrhy55 CPT Code(s) (test code b9vueALxFJClpZT4EuXkBG = 3357) Tmg7bej6JoyQOolKGvXLaw nTPczpZkie94cYZ1sN89HD 4zFJLiTqE8XLSmriC5Gim3 JSTnCKWwdDIdK386q8blr4 msaoHumEZ9iShdGIKpAITg YWluXGZzMjAgODgzMDUgWC LzHCB0JREqQsPRIpmcRVR2 CLINICAL HISTORY (test b2cvkFHqRGNvbXB6YoYiNQ code = 3356) Ioj3yfx5PmcIOcpPElQSzs gHJpmoUptx00jRA1pJ06FH 5rVVNsYfI0JBKsooV2Rsj1 HINpAVTwjLYzJ363k1pwy4 rywfHdsPQ5yKmvJGQdDHNr AKfvIBEoKdJfsOQeZO7mFT Bhcn0= SPECIMEN SOURCE (test w0rpsOZdTRSwlOV8VrHkFI code = 3377) Ytk0aoy5WqlSMlcCNjTFbv bEMkfpGavl23dWK8xU36DX 1aFRXeTjG4NCEhmdM1Hlm7 PNSqQLHsoJJiF075z7fhz8 wympLmnQO8zTigQLFnSDJk EBzdEAVmEgQxAI3iKUuce2 PfaLDxwHtxJCDEDvIaU4Ak qUQuS5qxWMQ2 GROSS DESCRIPTION (test s0lfoJMkTAEjzZOjNuPcMK code = 3366) XbTKWjp7cqAOCyiPWkEwOl MzNcZnRuYmpcdWMxXGRlZm Xfc8pmg024fXFqs4zkFRCl AfI9aMRgNQMojXSzN383s1 dil6norqMntYS0HOSdAIG1 ZPhomqKoxwT2XIsbaUWoWz X0GEncjdZoMFekkzAbqtTs Uew6FBJtL363CWG9dCmhz6 tpVGC1UKBqXADkZnApEd5n gJCoU955VBMgCOAAZYMqiM y5LPDomdQpvaCfeZKJm484 R613u8iqRAMqjfPyjWqAhj pxa9wrN497OKKonHDufhId AnEiAYHtcOQhmED8IJRsSX 6qznjyGkIiZC1jnvceUjMw QA6wbrr9KnPfYO9efqnhYe PzKDpdQGChsdcjELJfp3Ll uahwRZ9tH9Iiy1V9eR2dtG WbFAIfnNLrRtVnUSTbft3i sFWfCFreu3XqEUZ2boQ0kQ DzjFNqTEHoXJ59Kwxwa7Ul FpadEYJ6BFDjkuYlc1Cnw7 pqBkTtqkCgZ0ixY2EwHJUj HMKaYAMlDpGdmnClo3Khh1 EqzZFbyQr2s5paEWYyTKLu xEzkc7jfCON9YAFcJ3L0vC Wjf6tpUNzaPOBasAA3guso SApeZDMbbgF4slufMKeuEM LgjFD1noegMIhqIRNmKqH2 xnoeDTtqVMYxTHP1LJtfi8 10HCW3KTygFtlgBWocIOMe bmNvbnRccGduZGVjXHBsYW luXHBsYWluXGYwXGZzMjRc kBfshMtepV2zHpCbTfKfBX rxJI8bBSLpT0vfjWXoMKUm MWBdX7iaQoOpbW5oyPzdHG xmczIwIEEuICBSZWNlaXZl FFUlzpDuy1JyQMnjspXlLW OpsPJwLBPlVJNuPNQgBM37 M5AqvdScAFgfIDMwCQXdkB 1jDD76sOSivhDglfBpIzpb f4GzuPZpKuflkRT0OrHlii WnHFY0GF8wkWpcfxO0lWGw zLOuXnBcE80rxaTuIU1mZF A8ppunEpN2tZP7rtQpNfFy B81txO3cN7RgQZWsv0ZtBW clXC2idO1cDPdycJPqNURc ODCufSp9XWLkLZHxzjXfy7 EvxZd6tGEhPTthTCMriL1d iM2aDVMaXCBgehppBPZfYv 3mFDFoI8QmvwJqSVhfQZIi wn9rgNqaFXtzSqYvRBGpwA otMAWrgSzplgHuazCrWQ5o QGRqZ1Wmp0Jku24zccTcPi VnRCIfOUYkJ1OsmTWqKsTp aXMgYSAwLjIgeCAwLjIgeC TsPaDvU80nfFCuJNKbdyqk pCeoy0WeJWFrVXbhSR85IK doaWNoIGlzIGZpbHRlcmVk ZQQyIOAnuFIejBB7CXOrmU 8xpB09ikVbxmWQBX8saGVr VSJdfhTFsGylrmKFjnr0PI xsZXMsIFBBLCBIVCAoQVND UClccGFyfQ== MICROSCOPIC DESCRIPTION e4javRBcDMXxgJX5OlOfSY (test code = 3371) End4oxi4QqlLCorUDiEYnf vJBsyeZrun65yML7vB99TK 2qSXOsEfX1TZGwbfW7Syr2 DPKjESUduGTrV392a5ifb7 qijlRrzRK7rVdaWXDxQCEb KXouTXAaSdRgOXXnKf4mtU VkLlxwYXJ9 SPECIAL STUDIES (test e6ihaVDtMENse0zdRFHjkL code = 3376) FuZzEwMzNcZnRuYmpcdWMx KCdjaqQvWYmxf7DpP3AgMp AwMFxhbnNpXGRlZmxhbmcx XLIdFOQ4ziGiJCQlHWhsPK RnPUbgHq3ziGMpvQvoWjPl QNVqx1zueuVTgchvkTt6g4 ctPPDcEjK0oMOtTNpvF1ug zaYzsWMoS2VntQUqnDs8t7 mvQyGuCyE1zKYjGKvcN6vt ocWioEXeAKQxHJh3zE61JY GppM1tyBCxKEfqwgSkIwG0 FVkvMCTsCaF0JUKsuRWdEH BxI6zuQBUoBOtnKOAjLGfu oDXmQEN5yJeks3X1fTAvtV VsuVuuSyOtPzDtYkZWj4Kg QZh6iXalZ0SjCGYvVyC6dO QgUGFyYWdyYXBoIEZvbnQ7 gVxliqWnh99leNOrULJmZB CkPyBxqWhpQLGfUFFLm1Zb tMjpWLN0kKj7jQabXmtoDJ X4Ayi5FJ3eel25bjv1nRei BWDsxmsjSgA6GReuSFPqnl ziFCr8AXuuXGTjwUC2IPPw qMJqH5PnIXWmTA3gxqs1ZX U5SZibNTZqDfA9AEDodRQu PRTsrQhlIZckw493AFM7Lm ShPZ9vB6Cip4U0hL5vqHCj QXZurKKcVsWtNEYbih9ejU FpLKrdq1FvAAK1gqH8hJAr vEIuYUFbSB73Bnhgi5WjCs ylf5BeP53vwBR3KKpfk0hm WJ7cDgN5txTlLFkmf1ukhV 1sPtC6PXwoDR0lPV9fIKHt eA4segteQJDmUlUnxjduWB CygDlguiMmJb7pnJwoJCE1 SVbbU4aooV9aRzI1ABhmG6 huhF4uPBz9YGdhtUY1PPPs lU0sOW1gymvkr7oaKRrkPR egXHKhcrE5qdZ7IDGpoKHr A8SggC6hEZNnFP0otgchg9 juNSN6XRucSOJtFLF7TfNl MKRru3Shpbj1FeCkz0KxqS IsIVukG58tz605TSVmbcCy K3dtyWRwtyhhjSEuacvgMM pmurL0YPUkXQAmEUoiNJTh XGZzMjJcbGFuZzEwMzNcaG ljaFxmMVxkYmNoXGYxXGxv Y0myMsSxL6LfIQHgWtVbLU noUHvroOCbvMNauRC6hG1u LK6mCPBbbWZuH6LxIESlfv UasODnLUC9qXZqaCRbOI7t XDobuDFlt8jiw8QuF8ertM odyXY0LZ8yWFKmBXTxDRfd u9PqrP8vHqaebGTrgmszWU xmczIyXGxhbmcxMDMzXGhp M9ohWqPzXCOqvLamRDcdx0 NoXGYxXGNmMlxmczIyXGx0 cmNoXHBhclxwYXJccGxhaW 4fJfBfHzZxLppbYR1yKLGi P4owfGKiVBUpTSMiG2yiNd SuuC6hqJveDPxfYvIeViFl RmNCn336lx8zCXQtwCGlto DQyWByrM9yDSmdGHrqYHtq dYRnUVnof6ngWFWxe4a3tR LcJLZyccLub4xoNSgehlNg OYXxsBWseZZjCRNin49uAE ejpKaesGqkLCHfu9XakPhr i1KiViDoEZavo3AgE25bwH JvbCBzbGlkZXMgcnVuIGFs i17pp5vnTLCxYnB7fSHomP W0oNYydKIvu9HuyFlcBFBz p3icRXHrrj1uylpkkBZff1 WfvX5wemepAArerVOuriSn SIYtp2n7kHRgFCLpGYFiWR fosYc7VEOnn120jh4jlkP2 lJLaFJP3OXnjIGIgWKBpmh UgZXZhbHVhdGVkXHBsYWlu XGYxXGZzMjJcbGFuZzEwMz NcaGljaFxmMVxkYmNoXGYx UKcyK8bnTcEsG6CuWZCxJo XjfXVrW5uxdEArZULkTHhi XGYxXGZzMjJcbGFuZzEwMz NcaGljaFxmMVxkYmNoXGYx VYcxR8daXtGcB2NqHGPgTt IgIFxwbGFpblxmMVxmczIy KRhdnsnaERAsFLejZ0mqYr XhVOIziIekGHjap7BjPNNf JNFbVtquqmMsKXx7fhDkKH BhclxwbGFpblxmMVxmczIy OMyxwcfyRSHcQZhnP3vbCo MjPUFlkFhiNFtep2EiGQKa XGNmMlxmczIyIEltbXVub2 hbc3EgG8pqoYrhjRK2DZPg W3ohsRPrjPF6GEX7yS1eWA benfXhBMIzt7LiAZJrNXUr LnS6hJ8cACJ1OdEObYgcRK BsYWluXGYxXGZzMjJcbGFu ZzEwMzNcaGljaFxmMVxkYm ApUHFgNDkhT2zaVhNuV1Iz UXDuDrGzzXirDQghVZe7Xh xwbGFpblxmMVxmczIyXGxh rotuHGBbXCfyL6apKcDnVA KnkQalKIydk2LuCBIyRPEv MlxmczIyIHMgTWVkaWNhbC ZNQV06NZOhPBXanLekyI9k bKTGWBVhmnT0g9B8PUqbKR IaNUj5SWptmnArTFLwhO8p JUPiTK2tNGm0pwZlRMCso2 AvRK0sIDOdjLBfSBG8PZYg h5DeZ4Nag8AkWHWgFEFwvk 2slkOsJdJLvWKaPZVdmc39 HFTxHC9wK7brTXNvCWImzb IiuMZvc5NjXWUwoEL3uUFx IL0HDtDSw94zFEVwEKTMjr WfYQVnqVzonFD2tdG6cC6s LiBUaGUgRkRBIGhhcyBkZX Nzok3ickHyCMYpSAXhf4Pl nHYjiLNmkfLyX4Fmf4PbIU Rqxs50DYzzjALkfk01WX8w X3Wts7MhjC8kJYigNOXnz3 ZotVGtaEBaNYZkv9CdF8of yraeXYtevEAbpF4wQJEoVA x9DDHzx0HdJBVyj2LrUcXq hnXkSKTkXAJoFXDogP09RG V3uRmrqOsuhjWrYO5aZAEq ccDbWPNiTOSiwP6vVYiimo PjAFCzoaO4k1N2XJxtFOUm brStJwtbXUT2ssFnynH0oG RzJ1twocchWLfmLBFhs7Xl mY9tzTERiSGrn5VuqCEiwC ZYpLOsXE5qcvDrBL5sJUM4 ODggKENMSUEtODgpIGFzIH E6GRncYtbeNDV2zeDaPOWn x7XdMEhhV3dfJ15abJeseF f6tDGvxGbjqMKohEYvHYEj rzC1v9V3JFRbo9KjgdkpFM BsYWluXGYyXGZzMjJcbGFu ZzEwMzNcaGljaFxmMlxkYm GhRIBlSQfjG5xyDoPeDhVf YitmYLI9lG== Gross assessment was [facility] performed at ([facility], = 2777) Department of Pathology, [address] [place] [address], Technical component was [facility] performed at ([facility], = 2778) Department of Pathology, [address] [place] [id number], Professional component [facility] was performed at ([facility], code = 2779) Department of Pathology, [address] [place], [place] [id number], [facility] [id number] 14:24:00 Test Item Value Reference Range Interpretation Comments Case Report (test code Surgical Pathology = 104) Report Case: [id number] Authorizing Provider: Sarkis Laboy, Collected: 10/01/2020 09:43 AM Ordering Location: [place] [address] ccu Received: 10/01/2020 01:48 PM Pathologist: Pa Peters MD Specimens: A) - Biopsy, Gastric, random biopsy B) - Gastric, gastric erythema biopsy DIAGNOSIS (test code = [id number] 3220) FuZzEwMzNcZnRuYmpcdWMx IHtccnRmMVxlcGljOTIwMl qhukYgTKWgjLLyM9Labqyr TBmjVI0wDD0wmDzkvVWyeH RnGVRqFiTda3ept888aSVv m1laDWRXcrzzsQu7yNnqT0 8on4Y9ZlpkA61nbQTyGDhz bGFpblxmczIwIEEuIFNUT0 0GN1nxWUINSiJWMBVKAtJN J2VITKhQQF7XO57ERIzqDf fJTZIWAWA6FITwdxh9NEYb OGNSVpGJHAfdDHSOH5NAPP dJVEggTUlMRCBDSFJPTklD DMgFQPGXXEXLJRfXD8UPSD GAGcHVZbVoXi6PFCndGH4O SFHZGE4TROOYVGUCHUjDM6 eLHXDtbfk0HOEfSEVPBBnM XRjWMB7DQ59AXYRZQOOWVL 3CHNTgL9jVJ25TUrIXMjIX VElWRSBHQVNUUklUSVMgV0 kVFLLRN6FSWYIMV9JIKalZ GXkgSLJxeWBcAE7wH5WREH nLKaPQXRULVrohV0SBLO2h CkKWWSQBNfKuNw7EGMgfGA ICDV1HDTKHJNwGGU4DC5LL DFBQV7wwHYWoqGHdNN7pAv DFQIMONhHgGw6QKDJHQ7FC XGJSKAJEEvNWSOVHKH8GTI VtaQLnOBVgutRYDuRNSC5K QUNILCBFUllUSEVNQSwgRU 2FU7WCX8VGLaRJFPBPU7WM DCLWX8SXWCKKCpyfILNpaV ErGF3mG3bGQuCHIaITLBLV Q7SmT8vNDSGNPTwIBYPLAg 9LMHAuTN4PH2OFUmVyD5WB VFJJVElTIEFORCBWRVJZIE ERE1QVKKZJQVtCZEDOYTNa ciAgICAgICAgICAgICAgLS HHWF4BYyOkLYVBSEVLSKYG U38KAJHYJB0YWFESSUUOOX JUTFkgREVOVURFRCBXUElU XELLDJYCALItpvd3QMXlTC BXQVJUSElOIFNUQVJSWSBT VEFJTiBORUdBVElWRSBGT1 KqJQ7kQRsIC5IGSQrAL3Qw B9MXPB1WN30KMGXxcgc2VQ UaCZRMDJwTVXuWNAOBA4Mn TX3YFNAZQN0SGDQDYLBJKB mID6zRDRDRCTDHLEYXDPWb U8BjR5NYC9nEG93GOZZxmq 09EHS6OcMkq6H7CXY5LAWw IKIys4rdOIHciYFoExSaRi NcZnRuYmpcdWMxXGRlZmYw l1wtf921oURbx1nuKPZaWp U5lTZiMWGckIXrU798KTYh KPbyn7bbg4StZQFngYMhy6 P7NURDqdufxMc2tObjA87x s1M7MkybB1ffLWWxGUAaP3 MfDE0xQNBfYjw2KUT9NYV7 TXMyJKAtQ6ViAF4lCAOwmZ QrBJc8v6ugnVnbQQEaQFH2 b3gbTPqrpuFyMY9jkr9saA c6w8goutCeSRXuTJGypGZG MJLjA7UipQomBt3ohBg0lH qsFagdTDE5Ero9BK8vcj51 puv1gVjsKOYedrhoPpX8RJ vfLMKkolbaIKi7XLtdPPBc hLY2ILJgvKPkG6MyEMIwJT 7niuk6BIS7QSteJQDdWhL5 NDBcaGVhZGVyeTcyMFxmb2 81YWS3WnDpXQ2zF2Esw3X5 kH2ubSBuTRQchFMuWsFbXY Wkxw5usDLgGHhjm3QhBRT2 qeK3eJWkzPAxXWTxFsB4FS ayYF9uyd30KETpZYD5xk4b bGNccGdicmRyaGVhZFxwZ2 FyOEDfz212HBEaA1GlUQCb q7D7akFpEdUfPHRcsQD1sn M7OJPgPE1urdapq9ytEMvu XDehEKYocgO9cbH4IMMwjT ArG1UchE6aFBXrAJ0pxnkt o4lcJBV2RCglBCIpHAF5Ad QoNTMbs7Rsjgh1AcHmd9Bk lRHpQTmbV72jq246WEYwkw AoD8zdoKHghowtaREkbora TGkmznG1RPHuLNciryrtAB RzJXbaS0fdVgWpWRBycJfi AMvrj0RyXHNmTAWjGbHjmX OoQZYmGit2UEWgeVLiKZVd BrYhB1cqgjtvNiTRRCYvh9 ybG8oeqFXMkNNnK4MmZOnv sxNmWHtsKFkmMLYgFLU5VO 01BFdrBCKivs61 CPT Code(s) (test code h7hleASzPEWsqGK7DoFkIU = 3357) Xeu1eoh8DenWCyiZDoVYfb oULcjuPbwy25wHQ3nS35BS 0mZZYhYeN2PZEvanU6Mbr4 GKAjDCNokEUgD490d1ovi1 sessBjlNM3cSuxFDYqKNRc YWluXGZzMjAgODgzMDUgWC HtQUL2MEPoBdLMRyrsHQD3 CLINICAL HISTORY (test b8ctlRAhWYVabTN8NtUqUK code = 3356) Uff5tsv9QibDThdZRgJJwg xMRfslJpkx91kEK5uF44ME 0xONAjNzE3UXSoaoC5Trc2 ECCxKVZyyETsU750l3uvh8 edpmLtfVC2uKkiJCNvZEPz RCsbVDTkUfPyuOLaJV7fFM Bhcn0= SPECIMEN SOURCE (test t2nucNMrICHldCA9IpDlIS code = 3377) Lmh5jbg9TluTRiwCSuIVcb bRWkjgUbxj34fAB6bO71SW 7iWUVlYnH3QTCbdtU5Ddq6 OHWvSPZnyNOvM914u6upj8 kosnNziHJ9kVubBJCaYLOd WFxlDORyWqCaVL6rFIldz7 GwyMXbgHdtEQRVXsLyU0Ke sBZbH1guXHM7 GROSS DESCRIPTION (test p2dglNPqXYNatGBrQfNzKD code = 3366) KqMBTim1qfWQKggBPdHuBd MzNcZnRuYmpcdWMxXGRlZm Yxn7vfo471jYEcf3siQFKj IqO3fQSfLCIhuYImL952j5 nav2iudmGefZT3KEOwFUL4 FYfifgFnssD8UVkvgYHwWq Y5HPfaoiTgZTfgxgQmsfTi Pbq3OMElY451XGM1bAtih8 nsUXE9UBJhXFJaUbPrOg7s bLGiS687XKTdGFMWVCQpxD n4OQFhcxPmutJeqGPZm614 L460r8uiKSNbgpYrjZpIab hwd5rnM141RPWevDYuabYu LpRuURDxsZDrkXZ6GCTjYB 2vddunIfUnIM2fpfoyNmCe HO5qzoz5EjByMV3urrusZh DgPAoyQBKzeirtSKRee0Tb vzvlST3kP9Rqm9X4uI1mhN SmDYWphISrQsJtBRUfaj9q dCOfQCvcd2PaDWS5zhI0yE LpgUAcDQXmEZ43Gynqc9Wg IvweYBF1BMQwtzQqm2Hqu7 vsQqWvxeEdX5amI7KoTCGj DYSaYIVcEpXiqjXiv1Gav7 VhfQZtnJj1s5sjIINvJMIe nXagx3xeJDT9YRIxH3P0pO Smn9juEUfjXIQeeAF5wwau XOypFXVtrhQ6imivJUclYO ErrPP6xqmhXEkdKYIyZdO5 qxlpYEuwGGIbBLZ8VRwjw8 25WJE7QSfcXnqnHLkuVAMt bmNvbnRccGduZGVjXHBsYW luXHBsYWluXGYwXGZzMjRc jSeyrVvijU4nJmDzBoGyDC vfWQ7jIDOjY4tnwKNyXTRe URUvG3chHoRmcO2kvHjmIS xmczIwIEEuICBSZWNlaXZl VQYsrhPmt2EbXPoricTqKO UtrSSnBKFqJAPgDAJePK60 N1JaabZhAUdjKEFdDOShwJ 7mNB30kVPioeOpjhNnTwwk l7PaoDEzNbnnvVT5NgRyrv PqUEQ3XC8aeGzhzdH2hOSu lUWiTiAvT52fcaAdTP9qNH Y3adkdMqY6vTF1mrTzYvWd K49unY7vF5CgXXEoa6ZcAB jjXH8tiM9tNRvtmNAhTNOt ZYZpzJs7NDGxMZZgirMrk0 BsxYg0bDOrBDlxVKKcuW3v sT0uVNEkUFWgxxzwGGQvRc 1jGYXiV9TkkoUrUTxwNBMm fb5mxHnkHDilIeUkHHQmuM ubYBOvfJsxwxCpheKtHZ0v LSKgN3Vfo5Bjk80awpPmLy CaLJAhHKUhR3PzoGOmHuPi aXMgYSAwLjIgeCAwLjIgeC ThByIgR81ylEMpHJNmbsao jJesf8WtHMLnKXzoRK13FF doaWNoIGlzIGZpbHRlcmVk WDQuBIBobISnxOO4BSVydN 5jlK99kvMcwvNRYY3qaLHh QFPbpsAFyUhxudEDxff1ZK xsZXMsIFBBLCBIVCAoQVND UClccGFyfQ== MICROSCOPIC DESCRIPTION r8mmtGTlHEEcrTM4ImWvUM (test code = 3371) Fii8cpg1QenFBooHZoKTfz nVNwegJmyl42fHI4mK42YW 5yYAZwCdF0NIDseeI3Ziz6 ZWTeABYfeFBcS693c9udw2 bsqiMslSE6hWcsOXIxBYJq LQikATEdOlHrRZBqJa4hfP VkLlxwYXJ9 SPECIAL STUDIES (test v1mnoIKpAPDtr4ncRZEtcQ code = 3376) FuZzEwMzNcZnRuYmpcdWMx KOgsanUlDYyua7QfF5LpHt AwMFxhbnNpXGRlZmxhbmcx GQRfCME3ucQfCQJaQZgwIU PzWWsyYz8ktEGxdSfwOlBu KXRmt4nmlwGYqlcjmBk6l7 zxAKPyJaX1bLXxVSebU0go ekIxiKRtW9AvoNFpzCs1g6 jgQqMlQdO2iUQqSEfnT5mo wqNizUBpYMTxRKq5yN12RX WmeU6khGZoSQqwbnEnTaW5 CWycVDRhSwI4MRKbuBWtEL ZfB7rcWCLaOJviVCPxDDnd rLBxRND4sVqim0L2nKCvoU KfrJtoHzKgDcVbOuPUy3Bn KFo4dGsfA0ZuSJEvPaK2sJ QgUGFyYWdyYXBoIEZvbnQ7 yJdplfLez65ylKZtMGKzOT LmZkYprYzkIVXkSEOXe6An rJhrJJG0uLd6tOrgSpjzFV S6Hmp9JQ8nws38akk8uXri VJSrrssoDpW5TOexPGPcim okQYc1DWlcADRixMC5PVTo rCXuC5RvTYGuEM3xgkk9NZ N6DKmxKTSpJlS8PPBqnSWe KDQcrEneOHppz718PPE2Pm YeJG2gY6Bpr7S4mP1ltWTq XYElfGJqNjVqEZIecp7ajD DlTXykv2AnWFH9raO4fJIe zDOjUJGfON43Yvtfs4PgPz dgx1LmZ81csWU0CUcgr5bb GH1mAbN6meAmTTofy4zzaY 6aYqN3ZGbeMW2tPZ5vWYKy sY8eljstAWYsHuVganjhTS ZcpMxinePqQx9waExvURV8 GTmwO3gcvK4uAqF3XCniJ5 tgjJ1eZVu3WPafsBJ8KQJd jA9wBA4fwmrqz9qrJLwlCY pzGUPyccN5qqA1DWQwdUWn Y7IcwD8zEAFpHA5ymmwyt3 ctKCU8ILazCHYyCOX6NfCm ITXrw5Rkhwz2UdUde4YjuE BoTPdyH78ga314UATinzSd O4sjiYMnlwcziTSbjaapAN hjeaA6GUYfMYJfIJqzYUDt XGZzMjJcbGFuZzEwMzNcaG ljaFxmMVxkYmNoXGYxXGxv B4kfMjQbP0ElUAIlHhHlTJ nnZOwnvMZisRGurAL9uY0f JG6fJSQazBVuD8RdHFSaqa GsjHUdQUS4aDEqtPQtUZ5w TUjedBLtx9ymp2LrL5mvyB ymlWK0DJ1fYYLnAAYuLZsg y7YmoG9xExrqzKUhcgmmEC xmczIyXGxhbmcxMDMzXGhp L8dhOjXuWCRllLqtFBppa7 NoXGYxXGNmMlxmczIyXGx0 cmNoXHBhclxwYXJccGxhaW 7xAsWfSfRoIcwsSC9tLURe M7myqZUrEEGdSQYhJ1ajOs QyfT7zwVenFLsrQqNfFkLy LdZIh765jp5zESBafSEggq TNzYUobP4oUUovHDxrCNbk uNTmILxpq8ziXERdc7t5sP ZxDBYcqtBwu6tfMHnonfYg JMQjkQOtvIBjVLHoe59gRH drsKupcJqhFIQqn4ZrnKco j5TbDlJqEYgqj6AuS77teQ JvbCBzbGlkZXMgcnVuIGFs g50gv9npQMReSzT3fINbyG N5wTQykUNtr1CyoSzvOOTi u7edIMEcww5ubpivyYPho9 LgfB9hzlvsQVgkdBKrkmRz WJQxe8e7uNGmPNOuWDOdWA csvYm6EUQxg189kx2kwnC5 pOHeXIT1PEmkCFTlSZNyri UgZXZhbHVhdGVkXHBsYWlu XGYxXGZzMjJcbGFuZzEwMz NcaGljaFxmMVxkYmNoXGYx FPakT8sjNlBwJ1HuQVDwCb GufRAeN0vexXAuEHMoEWhz XGYxXGZzMjJcbGFuZzEwMz NcaGljaFxmMVxkYmNoXGYx GPfnU5edMiQsY2MxVIGoFq IgIFxwbGFpblxmMVxmczIy HOqtugwlWYVcYUykB0pmWg JpPYBbrLioFSmyx8CwASZs DQTdVbboofTeLDd7xkImHU BhclxwbGFpblxmMVxmczIy FJyfmucbGKUyPDiyQ8qbVy NePOKgxVakYFxsx9JmXHVm XGNmMlxmczIyIEltbXVub2 icb8WlY1pngHcqcEU1VCTo S1ewnNCylHO4YZJ6fH7xOW qgocEhUPHuz0IvCDXmVPTx OgG6dV8wDAS1FpCPcZgsPX BsYWluXGYxXGZzMjJcbGFu ZzEwMzNcaGljaFxmMVxkYm QtQSZfJHdmC4caLkXkI9Hx QDViTbVtyYuoRFxaUFc0Qx xwbGFpblxmMVxmczIyXGxh pbjsUBJiKNmnX4ayJtMrAU UjdJfaAQpye3BeDRVgTNLr MlxmczIyIHMgTWVkaWNhbC GCVL41XIIwPCNnaYsgxO9x cBQIXJZdwbM4t6L4ZRdvJM XtFUg4UWxqakQbTCEzgU4u GWMdZD2qAEu6xsNeOPBqs7 YtZS9qGPFdnFMlZKC8EJWs k1AwS4Uqj6NxYUHbOEIzrz 1rswHpJzYVfEQuPTGpmm77 PSBcPH3jG2xtRYTzKXGczs UjgBDti9VwFNIygNY5iKRy MG8LWsELz28lJASrOYLZpc PgEAEisBieaSU4cyE7mU0b LiBUaGUgRkRBIGhhcyBkZX Pqrc3nrdJiEHJqFFZeg7Hc vICxkNVzmyUqC1Htt4KaCW Samk76LSwhoEBivj25EF8z S8Lui1TmmU2lJWipVHUrr2 BkmMOmjKDsXWVpc5GtX5zo jhsjKGjvmXFrzE8gGRXvXC b4OFZgl9KvPFZjz3XaGxWw bnAbGUKnYPMuPXCddK19VJ I5jUqztBzyawIlFP9oTQAx zsVnGNQtLIEhcP6dSUemnf SfNTNbaxM4d3P6AVvbDXZm ufUyRkftKGG8ybSfppQ5iD YtP3vakqgaFNdqDUJoj0Kq qG9wwDYEbKRgg1KxxMSzvK PBiXZcPF6wwcKaPJ0nEDD2 ODggKENMSUEtODgpIGFzIH P9PTvoJjblIKG0ctXdANLl c3KwDFhgG5ttD53pvAuanV p2gOZiiMzlaEApxVZaUJPw qvJ7i0Z0KQJci1KtmkegZR BsYWluXGYyXGZzMjJcbGFu ZzEwMzNcaGljaFxmMlxkYm IxPPWmVTbnT9zsPeYnJvCj VvbwSUA0tT== Gross assessment was [facility] performed at ([facility], = 2777) Department of Pathology, [address] [place] [id number], Technical component was [facility] performed at ([facility], = 2778) Department of Pathology, [address] [place] [id number], Professional component [facility] was performed at ([facility], code = 2779) Department of Pathology, [address] [place] [id number], [id number] 14:24:00 Test Item Value Reference Range Interpretation Comments Case Report (test code Surgical Pathology = 104) Report Case: [id number] Authorizing Provider: Sarkis Laboy, Collected: 10/01/2020 09:43 AM Ordering Location: [place] [address] ccu Received: 10/01/2020 01:48 PM Pathologist: Pa Peters MD Specimens: A) - Biopsy, Gastric, random biopsy B) - Gastric, gastric erythema biopsy DIAGNOSIS (test code = [id number] 3220) FuZzEwMzNcZnRuYmpcdWMx IHtccnRmMVxlcGljOTIwMl iltuJmCMHpwSHhI1Jfonvf HNoiWU5nJC3rnRgwzXDzxO ZjXXZyNrGzm0dmb508aDWw n2pkMTFMzxuwaHt7hDniI3 3du8G0NjoiE18syFHsZTpm bGFpblxmczIwIEEuIFNUT0 2SK9reFZLYJtKLTGWTZwLJ Y1QAFWsVIG6MG08BBRwkRl wBZYNWQLR6KCNacbp9YHMa ETWXJvNTYRyoMYOZN3RFMJ dJVEggTUlMRCBDSFJPTklD UZoJAPKNUGJZKEdIE8KGGH KDZoNNDwWvDj5UKFtyYX9W TJYOAX9EFJSBDFOYCZhVI2 sBETIoqda9DVSbUTEYOMcO KGuGCV8PK24TCZWKEBZCRI 1DLSCfQ9nJZ83JJbPHLnFS VElWRSBHQVNUUklUSVMgV0 xVUFAPE6RZHCZXD8BRSmvH UQpuAPTxmLQrKI7fA7DNKQ eLOjCTALBDIhajO2MSOP9g CnGRVWZTLcCtLd8WRSsjWS EMFV0NTRVESCsTWI8PZ5YP OKAIE4bpHNIwxKXoAC5gZn LIYLFPViEvQf1RHXOZU5WO FMPMPNJDFaKCJXNANL8LPZ VrxAEcDIMtwwJUUdPEVM3Q QUNILCBFUllUSEVNQSwgRU 0BT6ZFT8YZJfQUQZGLQ9DV QNKHX4DNAIOFJbobZJUfiN GhCX0rU0hVKhKDTtKUPDNR M3XuF9nGHWWSTNwIURKLAg 0SMDEuMH0TD6MPJzYuB7KM VFJJVElTIEFORCBWRVJZIE ADS9JXSCAPMKmLSQGZUEMu ciAgICAgICAgICAgICAgLS DRTM5QIrKrVFLOXDDCYYNT E53BJLGPQM6TZYQRZMZXAE JUTFkgREVOVURFRCBXUElU SNDQELNTEBNcfcu8OAWjID BXQVJUSElOIFNUQVJSWSBT VEFJTiBORUdBVElWRSBGT1 AuTY3tQGyLX9HYIXvTZ0Vd Q7PEGP3VN37QDINzupi2SR AcSUBSQIzJQKsVBBZLZ3Gx HN1KCOEJQD2UTPSHVHWVSR lYU1dZVXVIFNOPXHCCPQEl O3OmN6UGO1dDV05WZNIwtj 09KQG3VzKvq1I4ZPM6MXJi PKHwn9jyTCOpsKXnPaHkCf NcZnRuYmpcdWMxXGRlZmYw j6lqu446jOEgw2qlTDFaZc L9dAZbVAGzcEEhF373NRFi DUxao7iwp8InRTTcxIOrg6 J9IPGVhorfeXf8wPspF10h w4M9NgruV0qbFWTbUZBgU1 TpTV4dQXZwKha9PIW3ENP3 EOXyNANtX2ZfJF1qOOGweJ ClDCe5m1ihfApbRUClKJQ7 v6vwDPvsymYqND6zsf9ovK u2r9esosVpEZCcXXKgyAIB YFVgI5XvbSisWp0unKv0pM iqVhnhIMC1Uos4EW2dkf33 cyj7yMwdQSMtshgxGpW0RO mpPSRduprcVJp7BOcxXRRw iEL3NYAzaGDvE6GcXDBgWO 9cnwg8MGJ7HAdfYWCjOtB7 NDBcaGVhZGVyeTcyMFxmb2 28QPG2VrXdLG2rB3Zws3V2 tW1ssHFoNLHbqXGtGyKkSM Omzr8jtMNvRXmcq6UlNOJ5 ptD8xOPsdLImAONcFoL8IH ikAN9kel48JPHvOBY4pw8y bGNccGdicmRyaGVhZFxwZ2 BfAQTxa783AAEjG9VjONRy n3U3nkJlEqLfXGKzxXJ1vk K4FZOnRR8bckzti8dzRWxv JKoxGCBpkxQ4xlY0KNXvjX BfJ8FuoF8pTOHpKC8mmngp k7qaGLT2SHjzDOTbFEE4Vp IaWEOuk5Etkjz4EzCtn0Ek eZUsWPdzV77dt510JYNmvc FzT9bblOFwethpxXGmiakd SIeippO7XBWcCFafmtmpSL SaJBztV9diQjMwSDPawQsp BNfws7KsQQIiNELdNbHqhH XkZAItNup3UGIroDJsUPAk YvYlS8yjcqsiLaJZBSTkh2 fyW1nwpTIJhMFxO4TzRFsm ryTvMTdpKZngEVXmKXU0PK 46AXudDJHjry50 CPT Code(s) (test code s5izjBEpMEXypTX9QcUcPE = 3357) Eky5bfw3RbgJIxhUTeUCch hMVtdrGwgz03sFV8aH56GE 0mQJHtEjN3JSFizhU9Yvq3 RTElHJOspEGsS240j4tnj6 qewjRwiYB6mFicYKYmJDIj YWluXGZzMjAgODgzMDUgWC YjKJE3BVUtYgIBBkviHFA3 CLINICAL HISTORY (test h3ndsTEoPGOvjPI1FlGsCG code = 3356) Zzj4bed7LfcNQuxVExBGlq yVSjouGmqw03jCX4rB58FG 8xCHHgOcI2REDxgiX7Lhf5 DAUyRVNfxOApG789q6ofl7 uqsdHsnIO1yScsFGPsHEZz QDuhOQGrZpBonTEuVZ1mDY Bhcn0= SPECIMEN SOURCE (test d4rilWDoSMRwkQY5ErSkLF code = 3377) Ttp3khv6WwuDQktGMlUAxm tSZqgnHxaw06dBI1vH27TZ 3hKOXpJlN2BZWadhI6Mde4 XZVhQRTffXZaE330t5pgo1 hqwsUkyOA6kLokGHPqXPTy YQmyVZVdXtBfMY2xHWvwy4 GxjSIpdJhpFIMGAgZqQ1Mr uIIhC8ztBBZ2 GROSS DESCRIPTION (test w2romOZlIRWweCHbBzJtDF code = 3366) SqFXTje6wkRPSprACuCqQk MzNcZnRuYmpcdWMxXGRlZm Waj2det641iGNkr7goJEHz YfY5gAJhDSOhsLXoC659v1 jmc6ycqcGxzTS4EBBnXXB1 OBnfkjBsofN5ZGzhoUKuPt I4SUgvpuQvCSaywdNbwaBt Jya3CCSrU130ONW6vUdpv1 rdHCA2PJZnOWGmXhJkIt7x pEItU561DKBjNENKTUEnkL s9WIPkamEmrjFfgNMHk199 F541o4muWGZdroTyeHkRzw nxo9lgX730RGOapLBsjhPw CnEvQJWmoPLdeQJ5MHAlAZ 0vdmufIxDqDL6kbxjeKpTv CP7vsck2RpJlGK3ykegnYu ZeNThmMKPghcnaDDDbp7Vi iezhEQ1fL7Yey8S2cS3asX QsNSXwrOKeEyDiCWPwvv0q hDFzVYabr2OcORG7uyU5mE AzgIIkVDXsLS68Sswbd4Bn XkonOBP4JOAtopFmi7Rps8 seWcUphbNeK7ayJ7WfZJYy JNEzZUIbNuSgeoYff0Kah9 CpcCRpxTo2w2wxWAEmJVFr jXouv0tuIDG8BVVkF3C6bI Nod7ubQPnjNUKiiQU2eqwj AQriGECavfJ2hudtZOoqOV TolGV4wjlfXDwvONSpUuF9 umwnZSrpXWRfZOP9IAgwz5 52GKK0ALmoUbscACkySLFc bmNvbnRccGduZGVjXHBsYW luXHBsYWluXGYwXGZzMjRc uVsvhRxntR9rWiYjHgPjMS nwZP0jWUCiV8gagCBhMYQu ECBmP8pdBfPlwX9gaTflML xmczIwIEEuICBSZWNlaXZl TVOnrmVfj3AiGYsmndXbNA BesTXmHCQvVANdBPPcTJ02 X9QmryAmQQuiADHnEJPiuD 4nMZ48cLKcikRwmlBdBofl j0WjgACmFrtinTG6DgBtkn ToJFV8XN8qcTqbuaV4zMSa vCOmPuThO95dvnDkHP6kBX M7qsojWmJ1wUS0jgCnVdEd O41ddV1qO8NkTLJvt3YfYH gdRW6bnL3eVDcheGAdGJOc XPWtxXh1DVBcGUZgxnBvk1 OgaPn2qQKjURidVNUxtC6s tR1wZKPjUSTwvpfkAJAsWk 6fGJLxZ9UpthEtQOglRELg wq3ymHlvBKruMiNqUNRsyH vyFICtoKbqivGxpxDsLS6n RMRaM4Bbk4Irq38ypyWhFy DiDOIwGAJtC5KvzKYzJpOk aXMgYSAwLjIgeCAwLjIgeC FeBfXuY87raUUwXYKkpenm sHrii6NnJIZrJEjhII08VB doaWNoIGlzIGZpbHRlcmVk ELIiKRAgjOKjlQS0AGUhxR 2tjA88otYlqhCPFE2nuRAm VWAbokJPvUmejvQRrbf8LI xsZXMsIFBBLCBIVCAoQVND UClccGFyfQ== MICROSCOPIC DESCRIPTION i0uigKKsJWZyfLJ9JcWtFL (test code = 3371) Fdk6isk1MxgTSquWXdVJyb yQYoidQduf91cHZ9iL31ES 2bHTIfGwH7YXGnrdP4Ofd3 RIHvBWWxvWPcU996c3isz3 uiosQulCW1pSddMMCcOXFu KBwiHNXzNzHwBTHuHr7kjD VkLlxwYXJ9 SPECIAL STUDIES (test r6eboBBwSTZhy5ldYSDboI code = 3376) FuZzEwMzNcZnRuYmpcdWMx NIuqqmUpQUzpj0VgD0YuMr AwMFxhbnNpXGRlZmxhbmcx VLCqDXK5qqAeOWKoLRmmRC RkXCfvEd5bqXCqlEleCnXr GEEik6zzyrJEmmekySl1m1 udLZYiQcM3oCMqAQayE1ue zxOmrRAfC0ClgXLeeDd0e7 uaImJbJjV5hHGxYFsvM5ap fcEguOZfSAAwFBr1uC95PQ WxmQ7irCPeAXqaaaDkRiL1 ENjbZCXnQdC0MBHuxFGmVF VuU8aqYGPrXTffQTOpEDqv xGRuHOE8lLoyj4V7eMYwmX BckHqyCcUcLoBiDpRAd8Xa DNt8mBpvC1PaDZFyGyL5mZ QgUGFyYWdyYXBoIEZvbnQ7 eMxvffBhm73rmYIiUPDqZD YyZoVhzCynWOPoIJKRo0Vg cTrcZBR7hXr3bKhzWpmyFM L7Pcr9QL9hbb49jee3dXpj MACfujdxGlU7REatIHAjzp ojIZs2BXueFFPziKN6DAKm oKJwA7AdAATfCS9rocj5AT L2QWjdEINnEeZ7SPAhlOJf JQAoaCgpQNrol351CDW8Rn LlKH7rL6Qsi1M5fO9rqQJs SXDbhBYlZePuPPFwur1ynM GvJUinb5HiSUE3xiP5cDMm iKYdGKHdSY36Hldqd1OwGv ctn3WyU74ovXC0JJhgg0nm FH7hVuX5ldRxZZnxc2xskC 9nOhP1AHixXQ9oTL1vLRUh zR4xqdrbXWPxPnBgpyljYM ZbrYhajyAlQi9ukUboNVL4 GTofC7lebA1oTtI0CNiyE5 aokH9oERo3INkmiIU9GNWh kF5uBS6fsqpxr1rqBAoyAO yySTDzvyT1bzS5UCUtyWVx N4TkkB8aFAUdVD2lfsqih2 ioJOC5INffRRYmDUA7TkHj GBZic3Rjrlf9RrOik3UjwB EeKWgdH36tm141UHOtbsUe I4qiaEQqmnoguXWswuugVG ertwI5RLPmRJQuNEhxBOGn XGZzMjJcbGFuZzEwMzNcaG ljaFxmMVxkYmNoXGYxXGxv I8zcLaGlE4WaEPIgFzLjZI fgBHwkdTFwzEEvhIJ8xN5s RH7vAFMoqAXmY4LhVDIggi WjuEDyTSA0fZIwmFDhKV3e CRwrxIGnl9zlt2YiX8svpG ogtOR0HZ3jRWBlPYYfKNuu x1DvpQ0qMtgdsPXxviafKD xmczIyXGxhbmcxMDMzXGhp F0hiQkLwSIPlwJshDLskf0 NoXGYxXGNmMlxmczIyXGx0 cmNoXHBhclxwYXJccGxhaW 8cHbIcZtCkIurtEV3xEIGi A2jnfGDeNZKmFJWwL0szVi CilK7foNvsCZffJoZiAdWy GpUZm510su0dOFHwtDGyzf PDhPSfyL7oUBhbXJvpPGrh gWLwWOsik8mrBATkd9b7yD AwKLRvndPka8pfUTtruvKq FFTxlPLbdVEkODOje86tXC rrxIytsZftGDNom4EemZnh s5TvUdFoXPmdj3NhL91esK JvbCBzbGlkZXMgcnVuIGFs a09pp6iqQMBgRtL7zEUliL N2gWEjaSZvz4NctXeoEGMk i4czKXBuuy1fzokfiDGgw5 FjbI5kxocoBVddpBFwbfNg FZTrk9x8sKAdYYFdOLSmCM qfyKc2VYMph187nw1dehU5 wJJnBPI1MXdpDOKkBMUnka UgZXZhbHVhdGVkXHBsYWlu XGYxXGZzMjJcbGFuZzEwMz NcaGljaFxmMVxkYmNoXGYx YYbmB7kgViTxF0DyLVVxTc ZszQAdW1oivPUpLXXpDFrl XGYxXGZzMjJcbGFuZzEwMz NcaGljaFxmMVxkYmNoXGYx SWwyE5wjMbEkF5DtRRBuOu IgIFxwbGFpblxmMVxmczIy QDmgupzeEVWdHBcmN8bxPn QjOXZljDloJFpvq5NoHHCt NCYiHwsxtwPeBWf1cwPsVY BhclxwbGFpblxmMVxmczIy KDpkklyuLLKsRYyuO4uzJk GlHDTfqAtkBHnru5NxSGFl XGNmMlxmczIyIEltbXVub2 yoz9UrW1pyxIhxcET9LWSh O0xvuLYmqMZ7FYD0yA2zHG otokPjDOBqz8LbAKNnKZZb HtM4pS1sQFI2UuJYoTszDC BsYWluXGYxXGZzMjJcbGFu ZzEwMzNcaGljaFxmMVxkYm SyXTMxSHniB4ziRdWyB7Wv NHFlFvFklVfgPAhoTCg8Ho xwbGFpblxmMVxmczIyXGxh jygdHGHnXXmcC3myBaCfTJ UxbZfpFQwka9ChVWPfXVVk MlxmczIyIHMgTWVkaWNhbC VXSR01XMCtAFNviPzmsW1h lEQFDVLxazD8n3C1LVzvTX PlOBj1EUmplaAnCZCnaI5v TXYsEG2wYYo0svFhDFPzb0 KjOT9wUKYaiLJvZVK2WNQr z4UkD7Tfb1OxQLJfSGIeyk 6zpyFtTmIHaPDdEJPrcm43 BJOwTZ1nQ7hrZRYfRKBrnh LczDDer1ZmCJClyXS4hQPf TL2DNbMLl62bOEIdGBABwh PbOZEcxAlxxKR6exY7uV9q LiBUaGUgRkRBIGhhcyBkZX Mmqh0fmdRgVEHzBIYye2Zc pKOuzUThwsUoL5Ehp7KsJN Majx92SAqtnJJyql01PK4q C0Pnj1NhhN1pPKqlITZuc2 OhcVRapCMlBXOzc6VyE4je pefbYAnxqQMlhV4zPUDtFN q9RYSbe4UcGYJbn1QqQiKp ilIpOAYsNUWmRPUsoJ19YW T1jXwiwFdmpwHmKP6hELFk beMdHFMnCLIimZ3iZXugcn AvIYOqkcM0v1Z7NSezIFUj vbUrOhncRLC6mnDbdpS7jG RjK1luvtojKBbkEHSih5Op eX9zyYDFcMSmg5ZaxJTfpD XAuMKnWM8jgmChRX4wPPG4 ODggKENMSUEtODgpIGFzIH C8GRbxUtlyKZH7bsZfQKWh p0DzQFmyZ2pnZ41obWpfuS r7yPTfrWuojMQztQSoYNHb poO0z9X7NDPxk9IfjcvqXR BsYWluXGYyXGZzMjJcbGFu ZzEwMzNcaGljaFxmMlxkYm LdYJWxCAhiM7joGeJiSqWi IvvmXTL5sX== Gross assessment was [facility] performed at ([facility], = 2777) Department of Pathology, [address] [place] [address], Technical component was [facility] performed at ([facility], = 2778) Department of Pathology, [address] [place] [address], Professional component [facility] was performed at ([facility], code = 2779) Department of Pathology, [address] [place] [address], [facility] [id number] 14:24:00Surgical Pathology Report Case: [id number] Authorizing Provider: Sarkis Laboy, Collected: 10/01/2020 09:43 AM OrderingLocation: [place] [address] ccu Received: 10/01/2020 01:48 PM Pathologist: Pa [...] OR CARCINOMA Signing Pathologist Direct Phone Line: [phone] signed by Pa Peters MD on 10/02/2020 at 2:24 [id number] X 2, [id number] F1vkskaoO. GastricB. GastricA. Received in formalin labeled the [...] evaluated Immunohistochemistry technical testing was performed at [facility], Pathology Laboratory where it was developed [...] qualified to perform high complexity clinical laboratory testing.[facility], Department of Pathology, [address] [place] [address], [facility], Department of Pathology, [address] [place] [address], [facility]zpltUSMD [facility] n[facility], Department of Pathology, [address] [place] [address], ZEMS-GLUCOSE [id number] 11:33:00 Test Item Value Reference Range Interpretation Comments POC-GLUCOSE METER 124 mg/dL 70-110 H : TESTED A T [facility] 6720 (WENDI) (test code = [place], 1538) [address]: Speech Language Pathologist Assistant/Techni imn ID = [id number] for Jaswinder Jefferson POCT-GLUCOSE [id number] 08:15:00 Test Item Value Reference Range Interpretation Comments POC-GLUCOSE METER 106 mg/dL 70-110 : TESTED A T [facility] 6720 (WENDI) (test code = [place], 1538) [address]: Speech Language Pathologist Assistant/Techni min ID = [id number] for Jaswinder Jefferson Comprehensive metabolic [id number] 05:17:00 Test Item Value Reference Range Interpretation Comments Protein, Total (test 6.1 See_Comment [Autom ated code = 2885-2) message] The system which generated this result transmit altagracia reference range : 6.0 - 8.3 gm/dL . The reference range was not u sed to interpret th is result as normal/abnormal . Albumin (test code = 2.6 g/dL 3.5-5 L 16129-7) Alkaline Phosphatase 85 U/L 40-150 (test code [...] (test code = 7.7 mg/dL 8.4-10.2 L 24965-1) AST (test code = 17 U/L 5-34 1920-8) ALT (test code = 9 U/L 6-55 1742-6) EGFR (test code = 35 mL/min/1.73 [place] [address]-4) NOT ACCURATE CREATININE CLEARANCE IN PREDICTING GLOMERULAR FILTRATION RATE . ESTIMATED GFR I S NOT APPLICABLE FOR DIALYSIS PATIEN TS. ELIANA (test code = ELIANA) Speech Language Pathologist Assistant ID - EDASI Lab Interpretation Abnormal (test code = 38162-9) [facility] Sacramento[facility] metabolic [id number] 05:17:00 Test Item Value Reference Range Interpretation Comments Protein, Total (test 6.1 See_Comment [Autom ated code = 2885-2) message] The system which generated this result transmit altagracia reference range : 6.0 - 8.3 gm/dL . The reference range was not u sed to interpret th is result as normal/abnormal . Albumin (test code = 2.6 g/dL 3.5-5 L 56031-6) Alkaline Phosphatase 85 U/L 40-150 (test code [...] (test code = 7.7 mg/dL 8.4-10.2 L 09764-0) AST (test code = 17 U/L 5-34 1920-8) ALT (test code = 9 U/L 6-55 1742-6) EGFR (test code = 35 mL/min/1.73 [place] [address]-8) NOT ACCURATE CREATININE CLEARANCE IN PREDICTING GLOMERULAR FILTRATION RATE . ESTIMATED GFR I S NOT APPLICABLE FOR DIALYSIS PATIEN TS. ELIANA (test code = ELIANA) Speech Language Pathologist Assistant ID - EDASI Lab Interpretation Abnormal (test code = 99333-7) [facility] SacramentoCom[facility] metabolic [id number] 05:17:00 Test Item Value Reference Range Interpretation Comments Protein, Total (test 6.1 See_Comment [Autom ated code = 2885-2) message] The system which generated this result transmit altagracia reference range : 6.0 - 8.3 gm/dL . The reference range was not u sed to interpret th is result as normal/abnormal . Albumin (test code = 2.6 g/dL 3.5-5 L 00592-1) Alkaline Phosphatase 85 U/L 40-150 (test code [...] (test code = 7.7 mg/dL 8.4-10.2 L 08420-9) AST (test code = 17 U/L 5-34 1920-8) ALT (test code = 9 U/L 6-55 1742-6) EGFR (test code = 35 mL/min/1.73 [place] [address]-9) NOT ACCURATE CREATININE CLEARANCE IN PREDICTING GLOMERULAR FILTRATION RATE . ESTIMATED GFR I S NOT APPLICABLE FOR DIALYSIS PATIEN TSRhys ELIANA (test code = ELIANA) Speech Language Pathologist Assistant ID - EDASI Lab Interpretation Abnormal (test code = 57257-9) [facility]Com[facility] metabolic [id number] 05:17:00 Test Item Value Reference Range Interpretation Comments Protein, Total (test 6.1 See_Comment [Autom ated code = 2885-2) message] The system which generated this result transmit altagracia reference range : 6.0 - 8.3 gm/dL . The reference range was not u sed to interpret th is result as normal/abnormal . Albumin (test code = 2.6 g/dL 3.5-5 L 59910-5) Alkaline Phosphatase 85 U/L 40-150 (test code [...] (test code = 7.7 mg/dL 8.4-10.2 L 23119-4) AST (test code = 17 U/L 5-34 1920-8) ALT (test code = 9 U/L 6-55 2-6) EGFR (test code = 35 mL/min/1.73 [place] [address]-8) NOT ACCURATE CREATININE CLEARANCE IN PREDICTING GLOMERULAR FILTRATION RATE . ESTIMATED GFR I S NOT APPLICABLE FOR DIALYSIS PATIEN ELIANA (test code = ELIANA) Speech Language Pathologist Assistant ID - EDASI Lab Interpretation Abnormal (test code = 51205-4) [facility]Com[facility] metabolic [id number] 05:17:00 Test Item Value Reference Range Interpretation Comments Protein, Total (test 6.1 See_Comment [Autom ated code = 2885-2) message] The system which generated this result transmit altagracia reference range : 6.0 - 8.3 gm/dL . The reference range was not u sed to interpret th is result as normal/abnormal . Albumin (test code = 2.6 g/dL 3.5-5 L 44901-0) Alkaline Phosphatase 85 U/L 40-150 (test code [...] (test code = 7.7 mg/dL 8.4-10.2 L 35875-8) AST (test code = 17 U/L 5-34 1920-8) ALT (test code = 9 U/L 6-55 1742-6) EGFR (test code = 35 mL/min/1.73 [place] [address]-2) NOT ACCURATE CREATININE CLEARANCE IN PREDICTING GLOMERULAR FILTRATION RATE . ESTIMATED GFR I S NOT APPLICABLE FOR DIALYSIS PATIEN TS. ELIANA (test code = ELIANA) Speech Language Pathologist Assistant ID - EDASI Lab Interpretation Abnormal (test code = 64657-4) [facility] SacramentoCOMPREHENSIVE METABOLIC [id number] 05:17:00 Test Item Value Reference Range Interpretation [...] S NOT APPLICABLE FOR DIALYSIS PATIEN TS. Speech Language Pathologist Assistant ID - EDASICBC W/PLT COUNT & AUTO [id number] 04:32:00 Test Item Value Reference Range Interpretation [...] PERCENT (BEAKER) (test code = 2801) POCT-GLUCOSE [id number] 21:36:00 Test Item Value Reference Range Interpretation Comments POC-GLUCOSE METER 146 mg/dL 70-110 H : TESTED A T [facility] 67[address] (BEAKER) (test code = [place], 1538) [address]: Speech Language Pathologist Assistant/Techni min ID = [id number] for Johana Vasquez Hemoglobin [id number] 15:28:00 Test Item Value Reference Range Interpretation Comments Hemoglobin A1C (test code = 4548-4) 5.6 % 4.3-6.1 Lab Interpretation (test code = Normal 64130-1) [facility] [id number] 15:28:00 Test Item Value Reference Range Interpretation Comments Hemoglobin A1C (test code = 4548-4) 5.6 % 4.3-6.1 Lab Interpretation (test code = Normal 12506-9) [facility] Sacramento[facility] [id number] 15:28:00 Test Item Value Reference Range Interpretation Comments Hemoglobin A1C (test code = 4548-4) 5.6 % 4.3-6.1 Lab Interpretation (test code = Normal 05557-3) [facility] [id number] 15:28:00 Test Item Value Reference Range Interpretation Comments Hemoglobin A1C (test code = 4548-4) 5.6 % 4.3-6.1 Lab Interpretation (test code = Normal 23578-4) [facility] [id number] 15:28:00 Test Item Value Reference Range Interpretation Comments Hemoglobin A1C (test code = 4548-4) 5.6 % 4.3-6.1 Lab Interpretation (test code = Normal 97755-0) [facility]GLOBIN [id number] 15:28:00 Test Item Value Reference Range Interpretation Comments HEMOGLOBIN A1C (BEAKER) (test code = 5.6 % 4.3-6.1 368) CBC W/PLT COUNT & AUTO [id number] 12:44:00 Test Item Value Reference Range Interpretation [...] PERCENT (BEAKER) (test code = 2801) POCT-GLUCOSE [id number] 11:11:00 Test Item Value Reference Range Interpretation Comments POC-GLUCOSE METER 125 mg/dL 70-110 H : TESTED A T [facility] 67[address] (BEAKER) (test code = [place], 1538) [address]: Speech Language Pathologist Assistant/Techni min ID = [id number] for BE SAM BEAULA Vancomycin level, [id number] 10:39:00 Test Item Value Reference Range Interpretation Comments Vancomycin Rm (test 4.8 ug/mL code = 81561-2) ELIANA (test code = Reference Range: No ELIANA) NormalsOperator [facility] [id number] 10:39:00 Test Item Value Reference Range Interpretation Comments Vancomycin Rm (test 4.8 ug/mL code = 17171-9) ELIANA (test code = Reference Range: No ELIANA) NormalsOperator ID - [facility], [id number] 10:39:00 Test Item Value Reference Range Interpretation Comments Vancomycin Rm (test 4.8 ug/mL code = 22175-7) ELIANA (test code = Reference Range: No ELIANA) [facility]alsOperator [facility], [id number] 10:39:00 Test Item Value Reference Range Interpretation Comments Vancomycin Rm (test 4.8 ug/mL code = 41600-2) ELIANA (test code = Reference Range: No ELIANA) NormalsOperator ID - [facility] CenterVancomycin level, [id number] 10:39:00 Test Item Value Reference Range Interpretation Comments Vancomycin Rm (test 4.8 ug/mL code = 82741-2) ELIANA (test code = Reference Range: No ELIANA) NormalsOperator ID - COLBY Rodriguez [facility]AN[facility], [id number] 10:39:00 Test Item Value Reference Range Interpretation Comments VANCOMYCIN RANDOM (BEAKER) (test 4.8 ug/mL code = 523) Reference Range: No NormalsOperator ID Eulalio BOWMAN CPOCT-GLUCOSE [id number] 08:38:00 Test Item Value Reference Range Interpretation Comments POC-GLUCOSE METER 119 mg/dL 70-110 H : TESTED A T [facility] 67[address] (WENDI) (test code = [place], 1538) 777[address]: Speech Language Pathologist Assistant/Techni min ID = [id number] for BARBARA FRIEDMAN SARS-CoV2/RT-PCR (Asymptomatic ONLY)2020-10-01 08:13:00 Test Item Value Reference Range Interpretation Comments SARS-COV2/RT-PCR Negative Not Detected, (test code = Negative, See 05993-6) external report for linked test SARS-COV-2 [facility] PERFORMING LAB (test code = 11176-9) ELIANA (test code = Negative result for [...] of the Act. Fact Sheet for Healthcare Providers:https://www.[employer]/sites/default/f dorys/product/documents/F act_Sheet_HC_Providers_L ghj_GMDN-RqG-9.pdf Fact Sheet for Healthcare Patients:https://www.PlanetTran/sites/default/fi les/product/documents/Fa ct_Sheet_Patients_Lyra_S ARS-CoV-2.pdf Performing Laboratory:[facility], [place] [address] [place], [place] [address]ARS-CoV2/RT-PCR (Asymptomatic ONLY)2020-10-01 08:13:00 Test Item Value Reference Range Interpretation Comments SARS-COV2/RT-PCR Negative Not Detected, (test code = Negative, See 03064-5) external report for linked test SARS-COV-2 [facility] PERFORMING LAB (test code = 44633-5) ELIANA (test code = Negative result for [...] of the Act. Fact Sheet for Healthcare Providers:https://www.[employer]/sites/default/f dorys/product/documents/F act_Sheet_HC_Providers_L bkf_RWZN-XnX-6.pdf Fact Sheet for Healthcare Patients:https://www.PlanetTran/sites/default/fi les/product/documents/Fa ct_Sheet_Patients_Lyra_S ARS-CoV-2.pdf Performing Laboratory:[facility], [place] [address] [place], [place] [address]ARS-CoV2/RT-PCR (Asymptomatic ONLY)2020-10-01 08:13:00 Test Item Value Reference Range Interpretation Comments SARS-COV2/RT-PCR Negative Not Detected, (test code = Negative, See 91377-6) external report for linked test SARS-COV-2 [facility] PERFORMING LAB (test code = 45911-3) ELIANA (test code = Negative result for [...] of the Act. Fact Sheet for Healthcare Providers:https://www.[employer]/sites/default/f dorys/product/documents/F act_Sheet_HC_Providers_L eap_GTTF-GvK-7.pdf Fact Sheet for Healthcare Patients:https://www.Planet[employer]an/sites/default/fi les/product/documents/Fa ct_Sheet_Patients_Lyra_S ARS-CoV-2.pdf Performing Laboratory:[facility] [place] [address] [facility] (Asymptomatic ONLY)2020-10-01 08:13:00 Test Item Value Reference Range Interpretation Comments SARS-COV2/RT-PCR Negative Not Detected, (test code = Negative, See 47165-2) external report for linked test SARS-COV-2 [facility] PERFORMING LAB (test code = 13257-5) ELIANA (test code = Negative result for [...] of the Act. Fact Sheet for Healthcare Providers:https://www.[employer]/sites/default/f dorys/product/documents/F act_Sheet_HC_Providers_L jvf_HZKI-PiW-1.pdf Fact Sheet for Healthcare Patients:https://www.[employer]/sites/default/fi les/product/documents/Fa ct_Sheet_Patients_Lyra_S ARS-CoV-2.pdf Performing Laboratory:[facility] [place] [address] [facility] (Asymptomatic ONLY)2020-10-01 08:13:00 Test Item Value Reference Range Interpretation Comments SARS-COV2/RT-PCR Negative Not Detected, (test code = Negative, See 61813-3) external report for linked test SARS-COV-2 [facility] PERFORMING LAB (test code = 80797-4) ELIANA (test code = Negative result for [...] of the Act. Fact Sheet for Healthcare Providers:https://www.[employer]/sites/default/f dorys/product/documents/F act_Sheet_HC_Providers_L lag_UPNH-BqZ-8.pdf Fact Sheet for Healthcare Patients:https://www.PlanetTran/sites/default/fi les/product/documents/Fa ct_Sheet_Patients_Lyra_S ARS-CoV-2.pdf Performing Laboratory:[facility] [place] [address] [facility] Center[facility] ([facility])2020-10-01 08:13:00 Test Item Value Reference Range Interpretation Comments SARS-COV2/RT-PCR (test Negative Not Detected, Negative, code = 7459622) See external report for linked test SARS-COV-[address] [facility] MAR[facility] (test code = 4488835) Negative result for this test determines that [...] 564(g) of the Act.Fact Sheet for Healthcare Providers:https://www.quidel.com/sites/default/files/product/documents/Fact_Shee l_WD_Hzurwabfd_Ekgb_BNLV-KsS-1.pdfFact Sheet for Healthcare Patients:https://www.Cyber Holdingsidel.com/sites/default/files/product/ documents/Yyuc_Lharr_Vecmwthh_Fuyf_YTNJ-RqQ-0.pdfPerforming Laboratory:[facility], [place] [id number] 06:20:00 Test Item Value Reference Range Interpretation Comments Ferritin (test code = 61.09 ng/mL 5-275 2276-4) ELIANA (test code = ELIANA) Speech Language Pathologist Assistant ID - PIAYA L Lab Interpretation (test Normal code = 33570-0) [facility] SacramentoVitamin B12 and [id number] 06:20:00 Test Item Value Reference Range Interpretation Comments Vitamin B12 (test 267 pg/mL 213-816 code = 2132-9) Folate (test code = 11.30 ng/mL See_Comment [Automa altagracia 2284-8) message] The system which generated this result transmit altagracia reference range : >=7.00. The reference range was not used to interpret this result as normal/abnormal . ELIANA (test code = ELIANA) Speech Language Pathologist Assistant ID - PIAYA L Lab Interpretation Normal (test code = 51738-8) [facility] Sacramento[facility]in2021-03-19 06:20:00 Test Item Value Reference Range Interpretation Comments Ferritin (test code = 61.09 ng/mL 5-275 2276-4) ELIANA (test code = ELIANA) Speech Language Pathologist Assistant ID - PIAYA L Lab Interpretation (test Normal code = 48265-1) [facility] SacramentoVit[facility] B12 and [id number] 06:20:00 Test Item Value Reference Range Interpretation Comments Vitamin B12 (test 267 pg/mL 213-816 code = 2132-9) Folate (test code = 11.30 ng/mL See_Comment [Automa altagracia 2284-8) message] The system which generated this result transmit altagracia reference range : >=7.00. The reference range was not used to interpret this result as normal/abnormal . ELIANA (test code = ELIANA) Speech Language Pathologist Assistant ID - PIAYA L Lab Interpretation Normal (test code = 06288-9) [facility]2021-[facility]-19 06:20:00 Test Item Value Reference Range Interpretation Comments Ferritin (test code = 61.09 ng/mL 5-275 2276-4) ELIANA (test code = ELIANA) Speech Language Pathologist Assistant ID - PIAYA L Lab Interpretation (test Normal code = 22450-8) [facility] B12 and [id number] 06:20:00 Test Item Value Reference Range Interpretation Comments Vitamin B12 (test 267 pg/mL 213-816 code = 2132-9) Folate (test code = 11.30 ng/mL See_Comment [Automa altagracia 2284-8) message] The system which generated this result transmit altagracia reference range : >=7.00. The reference range was not used to interpret this result as normal/abnormal . ELIANA (test code = ELIANA) Speech Language Pathologist Assistant ID - PIAYA L Lab Interpretation Normal (test code = 30263-1) [facility]2021-[facility]-19 06:20:00 Test Item Value Reference Range Interpretation Comments Ferritin (test code = 61.09 ng/mL 5-275 2276-4) ELIANA (test code = ELIANA) Speech Language Pathologist Assistant ID - PIAYA L Lab Interpretation (test Normal code = 20993-7) [facility] Sacramento[facility] B12 and [id number] 06:20:00 Test Item Value Reference Range Interpretation Comments Vitamin B12 (test 267 pg/mL 213-816 code = 2132-9) Folate (test code = 11.30 ng/mL See_Comment [Automa altagracia 2284-8) message] The system which generated this result transmit altagracia reference range : >=7.00. The reference range was not used to interpret this result as normal/abnormal . ELIANA (test code = ELIANA) Speech Language Pathologist Assistant ID - PIAYA L Lab Interpretation Normal (test code = 05114-4) [facility]-19 06:20:00 Test Item Value Reference Range Interpretation Comments Ferritin (test code = 61.09 ng/mL 5-275 2276-4) ELIANA (test code = ELIANA) Speech Language Pathologist Assistant ID - PIAYA L Lab Interpretation (test Normal code = 38529-9) [facility] and [id number] 06:20:00 Test Item Value Reference Range Interpretation Comments Vitamin B12 (test 267 pg/mL 213-816 code = 2132-9) Folate (test code = 11.30 ng/mL See_Comment [Automa altagracia 2284-8) message] The system which generated this result transmit altagracia reference range : >=7.00. The reference range was not used to interpret this result as normal/abnormal . ELIANA (test code = ELIANA) Speech Language Pathologist Assistant ID - PIAYA L Lab Interpretation Normal (test code = 95569-8) [facility] SacramentoFERRITIN2021-03-19 06:20:00 Test Item Value Reference Range Interpretation Comments FERRITIN (BEAKER) (test code = 61.09 ng/mL 5.00-275.00 361) Speech Language Pathologist Assistant ID Eulalio SOTELO LVITAMIN B12 AND [id number] 06:20:00 Test Item Value Reference Range Interpretation Comments VITAMIN B12 267 pg/mL 213-816 (BEAKER) (test code = 774) FOLATE (BEAKER) 11.30 ng/mL See_Comment [Automated message] (test code = 362) The system which generated this result transmitted ref erence range: >=7.00. The reference range was not used to interpr et this result as normal/abnormal . Speech Language Pathologist Assistant ID Eulalio Vazquez, TIBC, % sat. (without ferritin)2020-10-01 06:04:00 Test Item Value Reference Range Interpretation Comments Iron (test code = 2498-4) 17.0 ug/dL 40-160 L TIBC (test code = 2500-7) 323 ug/dL 250-450 Iron % Saturation (test 5 % 20-55 L code = 2502-3) ELIANA (test code = ELIANA) Speech Language Pathologist Assistant ID Eulalio SOTELO L Lab Interpretation (test Abnormal code = 35404-4) [facility], TIBC, % sat. (without ferritin)2020-10-01 06:04:00 Test Item Value Reference Range Interpretation Comments Iron (test code = 2498-4) 17.0 ug/dL 40-160 L TIBC (test code = 2500-7) 323 ug/dL 250-450 Iron % Saturation (test 5 % 20-55 L code = 2502-3) ELIANA (test code = ELIANA) Speech Language Pathologist Assistant ID Eulalio SOTELO L Lab Interpretation (test Abnormal code = 14213-3) [facility], TIBC, % sat. (without ferritin)2020-10-01 06:04:00 Test Item Value Reference Range Interpretation Comments Iron (test code = 2498-4) 17.0 ug/dL 40-160 L TIBC (test code = 2500-7) 323 ug/dL 250-450 Iron % Saturation (test 5 % 20-55 L code = 2502-3) ELIANA (test code = ELIANA) Speech Language Pathologist Assistant ID - ASHLEIGH L Lab Interpretation (test Abnormal code = 53186-4) [facility], TIBC, % sat. (without ferritin)2020-10-01 06:04:00 Test Item Value Reference Range Interpretation Comments Iron (test code = 2498-4) 17.0 ug/dL 40-160 L TIBC (test code = 2500-7) 323 ug/dL 250-450 Iron % Saturation (test 5 % 20-55 L code = 2502-3) ELIANA (test code = ELIANA) Speech Language Pathologist Assistant ID - PIAYA L Lab Interpretation (test Abnormal code = 49181-8) [facility], TIBC, % sat. (without ferritin)2020-10-01 06:04:00 Test Item Value Reference Range Interpretation Comments Iron (test code = 2498-4) 17.0 ug/dL 40-160 L TIBC (test code = 2500-7) 323 ug/dL 250-450 Iron % Saturation (test 5 % 20-55 L code = 2502-3) ELIANA (test code = ELIANA) Speech Language Pathologist Assistant ID - STEPHENIEAYA L Lab Interpretation (test Abnormal code = 19465-8) [facility], TIBC, % SAT. (WITHOUT FERRITIN)2020-10-01 06:04:00 Test Item Value Reference Range Interpretation Comments IRON (BEAKER) (test code = 547) 17.0 ug/dL 40.0-160.0 L TOTAL IRON BINDING CAPACITY 323 ug/dL 250-450 (BEAKER) (test code = 769) IRON % SATURATION (2) (BEAKER) 5 % 20-55 L (test code = 2590) Speech Language Pathologist Assistant ID - PIAYA LPOCT-GLUCOSE [id number] 05:23:00 Test Item Value Reference Range Interpretation Comments POC-GLUCOSE METER 116 mg/dL 70-110 H : TESTED A T [facility] 6720 (BEAKER) (test code [facility], = 1538) 82094: Speech Language Pathologist Assistant/Techni min ID = [id number] for JUNIE ALICIA CBC W/PLT COUNT & AUTO [id number] 03:26:00 Test Item Value Reference Range Interpretation [...] (BEAKER) (test code = 2801) COMPREHENSIVE METABOLIC [id number] 03:22:00 Test Item Value Reference Range Interpretation [...] S NOT APPLICABLE FOR DIALYSIS PATIEN TS. Speech Language Pathologist Assistant ID - DBCBC W/PLT COUNT & AUTO [id number] 20:14:00 Test Item Value Reference Range Interpretation [...] PERCENT (BEAKER) (test code = 2801) POCT-GLUCOSE [id number] 20:12:00 Test Item Value Reference Range Interpretation Comments POC-GLUCOSE METER 134 mg/dL 70-110 H : TESTED A T [facility] 6720 (BEAKER) (test code [facility], = 1538) 45072: Speech Language Pathologist Assistant/Techni min ID = [id number] for JUNIE ALICIA CBC (HEMOGRAM ONLY)2020-09-30 15:28:00 [...] 0-0 (BEAKER) (test code = 413) POCT-GLUCOSE [id number] 14:32:00 Test Item Value Reference Range Interpretation Comments POC-GLUCOSE METER 106 mg/dL 70-110 : TESTED A T [facility] 6720 (BEAKER) (test code = DEVON Rojelio [place], 1538) 43346: Speech Language Pathologist Assistant/Techni min ID = [id number] for CHUY SWANN HEMOGLOBIN [id number] 11:57:00 Test Item Value Reference Range Interpretation Comments HEMOGLOBIN A1C (BEAKER) (test code = 5.6 % 4.3-6.1 368) U/S, ABDOMINAL, [id number] 11:53:00Abdomen limited area? Add comment if clarification is needed.->Right upper quadrantReason for exam:->liver cirrhosis; [facility]TOH abuse [facility] 1950 Sex: [...] MDReport Verified Date/Time: 09/30/2020 11:53:08 US abdomen [id number] 11:53:00Interface, External Ris In - 09/30/2020 11:55 [...] signedby: CAITY HERNADEZ MD on 09/30/2020 11:53 [facility] abdomen [id number] 11:53:00Interface, External Ris In - 09/30/2020 11:55 [...] signedby: CAITY HERNADEZ MD on 09/30/2020 11:53 [facility] [id number] 11:53:00Interface, External Ris In - 09/30/2020 11:55 [...] signedby: CAITY HERNADEZ MD on 09/30/2020 11:53 [facility] [id number] 11:53:00Interface, External Ris In - 09/30/2020 11:55 [...] chronic medical renal disease. Signed: Caity Hernadez Verified Date/Time: 09/30/2020 11:53:08 Electronically signedby: CAITY HERNADEZ MD on 09/30/2020 11:53 [facility] [id number] 11:53:00Interface, External Ris In - 09/30/2020 11:55 [...] chronic medical renal disease. Signed: Caity Hernadez Verified Date/Time: 09/30/2020 11:53:08 Electronically signedby: CAITY HERNADEZ MD on 09/30/2020 11:53 [facility] w/Microscopic + Reflex to [id number] 10:53:00 Test Item Value Reference Range Interpretation Comments Color, UA (test code Light Yellow = 5778-6) Clarity, UA (test Clear code = 5767-9) Specific [place], UA 1.014 1.001-1.035 (test code = 5811-5) pH, UA (test code = 6.0 5.0-8.0 5803-2) Protein, UA (test 200 mg/dL Negative A code = 82504-0) Glucose, UA (test 50 mg/dL Negative A code = 365) Ketones, UA (test Negative Negative code = 2514-8) Bilirubin, UA (test Negative Negative code = 45891-5) Blood, UA (test code Small Negative A = 41103-6) Nitrite, UA (test Negative Negative code = 5802-4) Leukocytes, UA (test Negative Negative code = 5799-2) Urobilinogen, UA 0.2 mg/dL 0.2-1 (test code = 35723-0) RBC, UA (test code = 1 See_Comment [Autom ated 62808-7) message] The system which generated this result [...] . Bacteria, UA (test Few code = 28097-1) Mucus (test code = Few 8247-9) Squam Epithel, UA 1 See_Comment [Automate d (test code = 93295-2) messag e] The system which generated this result transmit altagracia reference range : /HPF. The reference range was not used to interpret this result as normal/abnormal . Hyaline Casts, UA 6 See_Comment [Automate d (test code = 74103-6) messag e] The system which generated this result transmit altagracia reference range : /LPF. The reference range was not used to interpret this result as normal/abnormal . Specimen Source (test code = 2795) ELIANA (test code = ELIANA) Speech Language Pathologist Assistant ID - [auto]Speech Language Pathologist Assistant ID - tech Lab Interpretation Abnormal (test code = 38681-5) [facility] Reflex [facility] Culture 2020-09-30 10:53:00 Test Item Value Reference Range Interpretation Comments Color, UA (test code Light Yellow = 5778-6) Clarity, UA (test Clear code = 5767-9) Specific [place], UA 1.014 1.001-1.035 (test code = 5811-5) pH, UA (test code = 6.0 5.0-8.0 5803-2) Protein, UA (test 200 mg/dL Negative A code = 26262-0) Glucose, UA (test 50 mg/dL Negative A code = 365) Ketones, UA (test Negative Negative code = 2514-8) Bilirubin, UA (test Negative Negative code = 81462-0) Blood, UA (test code Small Negative A = 88905-0) Nitrite, UA (test Negative Negative code = 5802-4) Leukocytes, UA (test Negative Negative code = 5799-2) Urobilinogen, UA 0.2 mg/dL 0.2-1 (test code = 06761-0) RBC, UA (test code = 1 See_Comment [Autom ated 47571-4) message] The system which generated this result [...] . Bacteria, UA (test Few code = 56103-5) Mucus (test code = Few 8247-9) Squam Epithel, UA 1 See_Comment [Automate d (test code = 15951-8) messag e] The system which generated this result transmit altagracia reference range : /HPF. The reference range was not used to interpret this result as normal/abnormal . Hyaline Casts, UA 6 See_Comment [Automate d (test code = 09032-2) messag e] The system which generated this result transmit altagracia reference range : /LPF. The reference range was not used to interpret this result as normal/abnormal . Specimen Source (test code = 2795) ELIANA (test code = ELIANA) Speech Language Pathologist Assistant ID - [auto]Speech Language Pathologist Assistant ID - tech Lab Interpretation Abnormal (test code = 09995-3) [facility] Reflex to Culture 2020-09-30 10:53:00 Test Item Value Reference Range Interpretation Comments Color, UA (test code Light Yellow = 5778-6) Clarity, UA (test Clear code = 5767-9) Specific [place], UA 1.014 1.001-1.035 (test code = 5811-5) pH, UA (test code = 6.0 5.0-8.0 5803-2) Protein, UA (test 200 mg/dL Negative A code = 78429-5) Glucose, UA (test 50 mg/dL Negative A code = 365) Ketones, UA (test Negative Negative code = 2514-8) Bilirubin, UA (test Negative Negative code = 61411-7) Blood, UA (test code Small Negative A = 24774-6) Nitrite, UA (test Negative Negative code = 5802-4) Leukocytes, UA (test Negative Negative code = 5799-2) Urobilinogen, UA 0.2 mg/dL 0.2-1 (test code = 19647-0) RBC, UA (test code = 1 See_Comment [Autom ated 72323-2) message] The system which generated this result [...] . Bacteria, UA (test Few code = 30208-7) Mucus (test code = Few 8247-9) Squam Epithel, UA 1 See_Comment [Automate d (test code = 29142-0) messag e] The system which generated this result transmit altagracia reference range : /HPF. The reference range was not used to interpret this result as normal/abnormal . Hyaline Casts, UA 6 See_Comment [Automate d (test code = 01693-6) messag e] The system which generated this result transmit altagracia reference range : /LPF. The reference range was not used to interpret this result as normal/abnormal . Specimen Source (test code = 2795) ELIANA (test code = ELIANA) Speech Language Pathologist Assistant ID - [auto]Speech Language Pathologist Assistant ID - tech Lab Interpretation Abnormal (test code = 72435-4) [facility] + Reflex to Culture 2020-09-30 10:53:00 Test Item Value Reference Range Interpretation Comments Color, UA (test code Light Yellow = 5778-6) Clarity, UA (test Clear code = 5767-9) Specific [place], UA 1.014 1.001-1.035 (test code = 5811-5) pH, UA (test code = 6.0 5.0-8.0 5803-2) Protein, UA (test 200 mg/dL Negative A code = 10592-0) Glucose, UA (test 50 mg/dL Negative A code = 365) Ketones, UA (test Negative Negative code = 2514-8) Bilirubin, UA (test Negative Negative code = 54598-0) Blood, UA (test code Small Negative A = 05050-1) Nitrite, UA (test Negative Negative code = 5802-4) Leukocytes, UA (test Negative Negative code = 5799-2) Urobilinogen, UA 0.2 mg/dL 0.2-1 (test code = 65396-1) RBC, UA (test code = 1 See_Comment [Autom ated 53728-0) message] The system which generated this result [...] . Bacteria, UA (test Few code = 68628-3) Mucus (test code = Few 8247-9) Squam Epithel, UA 1 See_Comment [Automate d (test code = 46088-5) messag e] The system which generated this result transmit altagracia reference range : /HPF. The reference range was not used to interpret this result as normal/abnormal . Hyaline Casts, UA 6 See_Comment [Automate d (test code = 57028-6) messag e] The system which generated this result transmit altagracia reference range : /LPF. The reference range was not used to interpret this result as normal/abnormal . Specimen Source (test code = 2795) ELIANA (test code = ELIANA) Speech Language Pathologist Assistant ID - [auto]Speech Language Pathologist Assistant ID - tech Lab Interpretation Abnormal (test code = 73490-8) [facility] + Reflex to Culture 2020-09-30 10:53:00 Test Item Value Reference Range Interpretation Comments Color, UA (test code Light Yellow = 5778-6) Clarity, UA (test Clear code = 5767-9) Specific [place], UA 1.014 1.001-1.035 (test code = 5811-5) pH, UA (test code = 6.0 5.0-8.0 5803-2) Protein, UA (test 200 mg/dL Negative A code = 80478-0) Glucose, UA (test 50 mg/dL Negative A code = 365) Ketones, UA (test Negative Negative code = 2514-8) Bilirubin, UA (test Negative Negative code = 84633-9) Blood, UA (test code Small Negative A = 26475-3) Nitrite, UA (test Negative Negative code = 5802-4) Leukocytes, UA (test Negative Negative code = 5799-2) Urobilinogen, UA 0.2 mg/dL 0.2-1 (test code = 64599-0) RBC, UA (test code = 1 See_Comment [Autom ated 62104-7) message] The system which generated this result [...] . Bacteria, UA (test Few code = 29442-9) Mucus (test code = Few 8247-9) Squam Epithel, UA 1 See_Comment [Automate d (test code = 91901-9) messag e] The system which generated this result transmit altagracia reference range : /HPF. The reference range was not used to interpret this result as normal/abnormal . Hyaline Casts, UA 6 See_Comment [Automate d (test code = 12122-5) messag e] The system which generated this result transmit altagracia reference range : /LPF. The reference range was not used to interpret this result as normal/abnormal . Specimen Source (test code = 2795) ELIANA (test code = ELIANA) Speech Language Pathologist Assistant ID - [auto]Speech Language Pathologist Assistant ID - tech Lab Interpretation Abnormal (test code = 33377-4) [facility]FLEX URINE [id number] 10:53:00 Test Item Value Reference Range Interpretation [...] = 514) SOURCE(BEAKER) (test code = 2795) Speech Language Pathologist Assistant ID - [auto]Speech Language Pathologist Assistant ID - techLactic acid, [id number] 10:00:00 Test Item Value Reference Range Interpretation Comments Lactate, Venous (test code 1.08 mmol/L 0.5-2.2 = 2872) ELIANA (test code = ELIANA) Speech Language Pathologist Assistant ID - PIAYA L Lab Interpretation (test Normal code = 35845-3) [facility], [id number] 10:00:00 Test Item Value Reference Range Interpretation Comments Lactate, Venous (test code 1.08 mmol/L 0.5-2.2 = 2872) ELIANA (test code = ELIANA) Speech Language Pathologist Assistant ID - PIAYA L Lab Interpretation (test Normal code = 84926-6) [facility] [id number] 10:00:00 Test Item Value Reference Range Interpretation Comments Lactate, Venous (test code 1.08 mmol/L 0.5-2.2 = 2872) ELIANA (test code = ELIANA) Speech Language Pathologist Assistant ID - PIAYA L Lab Interpretation (test Normal code = 83122-0) [facility], [id number] 10:00:00 Test Item Value Reference Range Interpretation Comments Lactate, Venous (test code 1.08 mmol/L 0.5-2.2 = 2872) ELIANA (test code = ELIANA) Speech Language Pathologist Assistant ID - PIAYA L Lab Interpretation (test Normal code = 21571-8) [facility], [id number] 10:00:00 Test Item Value Reference Range Interpretation Comments Lactate, Venous (test code 1.08 mmol/L 0.5-2.2 = 2872) ELIANA (test code = ELIANA) Speech Language Pathologist Assistant ID - PIAYA L Lab Interpretation (test Normal code = 87050-9) [facility] [id number] 10:00:00 Test Item Value Reference Range Interpretation Comments LACTATE BLOOD VENOUS (2) (BEAKER) 1.08 mmol/L 0.50-2.20 (test code = 2872) Speech Language Pathologist Assistant ID - ASHLEIGH LCBC W/PLT COUNT & AUTO [id number] 09:53:00 Test Item Value Reference Range Interpretation [...] = 2801) RAD, CHEST, 1 VIEW, NON [id number] 09:06:00Reason for exam:->? sob [facility] : 1950 Sex: MFINAL REPORT INDICATION: ? sob COMPARISON: None TECHNIQUE: Single fro ntal view of the chest. FINDINGS: Lungs and pleura: Clear lungs. No effusion.Heart and mediastinum: Normal heart size. Unremarkable mediastinal contours.Osseous structures: No acute abnormality.Other: None. IMPRESSION: No acute intrathoracic abnormality. Signed: Nahed Cleary Verified Date/ Time: 09/30/2020 09:06:18 Reading Location: [facility] Radiology Reading Room XR chest 1 view portable / [id number] 09:06:00Interface, External Ris In - 09/30/2020 9:24 AM CDTFINAL REPORT INDICATION: ? sob COMPARISON: None TECHNIQUE: Single frontal view of the chest. FINDINGS: Lungs and pleura: Clearlungs. No effusion.Heart and mediastinum: Normal heart size. Unremarkable mediastinal contours.Osseous structures: No acute abnormality.Other: None. IMPRESSION: No acute intrathoracic abnormality. Sign ed: Nahed Cleary Verified Date/Time: 09/30/2020 09:06:18 Reading Location: [facility] / [id number] 09:06:00Interface, External Ris In - 09/30/2020 9:24 AM CDTFINAL REPORT INDICATION: ? sob COMPARISON: None TECHNIQUE: Single frontal view of the chest. FINDINGS: Lungs and pleura: Clearlungs. No effusion.Heart and mediastinum: Normal heart size. Unremarkable mediastinal contours.Osseous structures: No acute abnormality.Other: None. IMPRESSION: No acute intrathoracic abnormality. Sign ed: Nahed Cleary Verified Date/Time: 09/30/2020 09:06:18 Reading Location: [facility] Rad[facility] / [id number] 09:06:00Interface, External Ris In - 09/30/2020 9:24 AM CDTFINAL REPORT INDICATION: ? sob COMPARISON: None TECHNIQUE: Single frontal view of the chest. FINDINGS: Lungs and pleura: Clearlungs. No effusion.Heart and mediastinum: Normal heart size. Unremarkable mediastinal contours.Osseous structures: No acute abnormality.Other: None. IMPRESSION: No acute intrathoracic abnormality. Sign ed: Nahed Cleary Verified Date/Time: 09/30/2020 09:06:18 Reading Location: [facility] Rad[facility] / [id number] 09:06:00Interface, External Ris In - 09/30/2020 9:24 AM CDTFINAL REPORT INDICATION: ? sob COMPARISON: None TECHNIQUE: Single frontal view of the chest. FINDINGS: Lungs and pleura: Clearlungs. No effusion.Heart and mediastinum: Normal heart size. Unremarkable mediastinal contours.Osseous structures: No acute abnormality.Other: None. IMPRESSION: No acute intrathoracic abnormality. Sign ed: Nahed Cleary Verified Date/Time: 09/30/2020 09:06:18 Reading Location: [facility] Radiology [facility] / [id number] 09:06:00Interface, External Ris In - 09/30/2020 9:24 AM CDTFINAL REPORT INDICATION: ? sob COMPARISON: None TECHNIQUE: Single frontal view of the chest. FINDINGS: Lungs and pleura: Clearlungs. No effusion.Heart and mediastinum: Normal heart size. Unremarkable mediastinal contours.Osseous structures: No acute abnormality.Other: None. IMPRESSION: No acute intrathoracic abnormality. Sign ed: Nahed Cleary Verified Date/Time: 09/30/2020 09:06:18 Reading Location: [facility] Radiology [facility] [place] COMPREHENSIVE METABOLIC [id number] 07:47:00 Test Item Value Reference Range Interpretation [...] S NOT APPLICABLE FOR DIALYSIS PATIEN TS. Speech Language Pathologist Assistant ID - [id number] 07:07:00 Test Item Value Reference Range Interpretation Comments PTT (test code = 13077-7) 25.1 See_Comment [ Automated message] The system [employer] generated this result transmitted ref erence range: 22.5 - 3 6.0 seconds. The re ference range was not u sed to interpret this result as normal/abnor mal. Lab Interpretation (test Normal code = 09224-9) [facility] 07:07:00 Test Item Value Reference Range Interpretation Comments PTT (test code = 24862-1) 25.1 See_Comment [ Automated message] The system [employer] generated this result transmitted ref erence range: 22.5 - 3 6.0 seconds. The re ference range was not u sed to interpret this result as normal/abnor mal. Lab Interpretation (test Normal code = 29602-9) [facility] 07:07:00 Test Item Value Reference Range Interpretation Comments PTT (test code = 00666-4) 25.1 See_Comment [ Automated message] The system [employer] generated this result transmitted ref erence range: 22.5 - 3 6.0 seconds. The re ference range was not u sed to interpret this result as normal/abnor mal. Lab Interpretation (test Normal code = 68907-6) [facility] Test Item Value Reference Range Interpretation Comments PTT (test code = 82411-3) 25.1 See_Comment [ Automated message] The system [employer] generated this result transmitted ref erence range: 22.5 - 3 6.0 seconds. The re ference range was not u sed to interpret this result as normal/abnor mal. Lab Interpretation (test Normal code = 14227-6) [facility] 07:07:00 Test Item Value Reference Range Interpretation Comments PTT (test code = 00604-9) 25.1 See_Comment [ Automated message] The system [employer] generated this result transmitted ref erence range: 22.5 - 3 6.0 seconds. The re ference range was not u sed to interpret this result as normal/abnor mal. Lab Interpretation (test Normal code = 95158-4) [facility] 07:07:00 Test Item Value Reference Range Interpretation Comments PARTIAL THROMBOPLASTIN TIME 25.1 seconds 22.5-36.0 (BANNER) (test code = 760) PROTHROMBIN TIME/[id number] 07:07:00 Test Item Value Reference Range Interpretation Comments PROTIME (BANNER) 14.2 seconds 11.9-14.2 (test code = 759) INR (BANNER) (test 1.13 See_Comment [Automat ed message] code = 370) The system [employer] generated this result transmitted ref erence range: <=5.90. The reference range was not used to int erpret this result as normal/abnormal . Effective 12/11/2018: PT Reference Range ChangeNew: 11.9-14.2 Previous: 11.7- 14.7RECOMMENDED COUMADIN/WARFARIN INR THERAPY RANGESSTANDARD DOSE: 2.0-3.0 Includes: PROPHYLAXIS for venous thrombosis, systemic embolization; TREATMENT for venous thrombosis and/or pulmonary embolus.HIGH RISK: Target INR is2.5-3.5 for patients wiht mechanical heart valves.POCT-GLUCOSE [id number] 06:39:00 Test Item Value Reference Range Interpretation Comments POC-GLUCOSE METER 150 mg/dL 70-110 H : TESTED A T [facility] 6720 (BANNER) (test code [facility], = 1538) 42660: Speech Language Pathologist Assistant/Techni min ID = [id number] for JUNIE ALICIA [id number] 00:00:00Ordered by an unspecified provider.[facility]-[id number] 00:00:00Ordered by an unspecified provider. [facility]EKG-[id number] 00:00:00Ordered by an unspecified provider.[facility]-[id number] 00:00:00 Ordered by an unspecified provider.[facility]-SCANNED 2020-09-30 00:00:00Ordered by an unspecified provider.[facility] ([facility])2020-01-26 13:29:00 Test Item Value Reference Range Interpretation Comments SARS-COV2/RT-PCR (test code = Negative Not Detected, Negative 5139037) SARS-COV-[address] [facility] (test code = 3583917) Negative result for this test determines that [...] 564(g) of the Act.Fact Sheet for Healthcare Providers:https://www.[employer].com/sites/default/files/product/documents/Fact_Shee u_ZW_Qnjeqyrrm_Dogl_KEFT-IrM-6.pdfFact Sheet for Healthcare Patients:https://www.[employer].com/sites/default/files/product/ documents/Kith_Xnlox_Ynpaglzu_Nlve_NRXJ-OcQ-2.pdfPerforming Laboratory:[facility] [place] [address]
--- NOTE | 2021-03-16 20:31 | EDPHYS ---
Physician Documentation [facility] Name: Amaury Matamoros Age: 70 yrs Sex: Male : 1950 Arrival Date: 03/16/2021 Time: 19:56 Bed 13 Private MD: JEROME Physician Wally Miles HPI: 03/16 20:28 This 70 yrs old Male presents to ER via Wheelchair with complaints of FEELS jmm JITTERY. 20:28 Onset: The symptoms/episode began/occurred today. Duration: The symptoms are jmm continuous. The patient's shortness of breath is aggravated by nothing, is alleviated by nothing. This is a 62-year-old male with history of diabetes mellitus, hypertension that presents emerged part with complaints of jitteriness, shortness of breath. Patient was recently discharged from the hospital with a coronavirus admission. Patient does have home O2.. Historical: - Allergies: 20:00 PENICILLINS; kg - Home Meds: 20:00 aspirin 81 mg Oral chew 1 tab once daily [Active]; Metformin Oral [Active]; kg - PMHx: 20:00 Cellulitis; Diabetes - NIDDM; Hypertension; kg - PSHx: 20:00 Left AKA; kg - Immunization history:: Adult Immunizations not immunized. - Social history:: Smoking status: Patient denies any tobacco usage or history of. ROS: 20:28 Constitutional: Positive for fatigue. jmm 20:28 Respiratory: Positive for shortness of breath. 20:28 All other systems are negative. Exam: 20:28 Constitutional: This is a well developed, well nourished patient who is awake, alert, jmm and in no acute distress. Head/Face: atraumatic. Eyes: EOMI, no conjunctival erythema appreciated ENT: Moist Mucus Membranes Neck: Trachea midline, Supple Chest/axilla: Normal chest wall appearance and motion. Cardiovascular: Regular rate and rhythm. No edema appreciated Respiratory: Normal respirations, no respiratory distress appreciated Abdomen/GI: Non distended, soft Back: Normal ROM Skin: General appearance color normal 20:28 Musculoskeletal/extremity: ROM: intact in all extremities. 20:28 Skin: Appearance: Color: normal in color. 20:28 Neuro: Motor: is normal. 20:28 Psych: Behavior/mood is pleasant, cooperative. Vital Signs: 19:56 BP 133 / 84; Pulse 98; Resp 18; Temp 97.8(TE); Pulse Ox 86% on R/A; Weight 63.5 kg (R); kg Height 5 ft. 3 in. (160.02 cm) (R); Pain 10/10; 22:11 BP 146 / 94; Pulse 87; Resp 18; Pulse Ox 98% on 3 lpm NC; lh3 19:56 Body Mass Index 24.80 (63.50 kg, 160.02 cm) kg MDM: 20:11 Patient medically screened. [facility] 20:29 Data reviewed: vital signs, nurses notes. ED course: Patient is alert nontoxic in jmm appearance in ED. With O2 via nasal cannula patient's oxygenation is high percent. Patient does have home O2. I discussed the patient with his PCP, Dr. Us who will follow up with the patient tomorrow and does not recommend readmission.. Administered Medications: No medications were administered Disposition: 03/17 07:19 Co-signature as Attending Physician, Wally Miles MD I agree with the [facility]. Disposition Summary: 03/16/21 20:30 Discharge Ordered Location: Home [facility] Condition: Stable [facility] Diagnosis - Coronavirus infection, unspecified [facility] Followup: [facility] - With: Garo Us MD - When: 2 - 3 days - Reason: Recheck today's complaints, Continuance of care, Re-evaluation by your physician Discharge Instructions: - Discharge Summary Sheet [facility] - COVID-19 [facility] Forms: - Medication Reconciliation Form [facility] - Thank You Letter [facility] - Antibiotic Education [facility] - Prescription Opioid Use [facility] Signatures: Wally Miles MD MD cha Mickail, Joel, PA PA [facility] Lakesha Smith, RN RN kg
--- NOTE | 2021-03-16 20:31 | ER ---
Nurse's Notes [facility] Name: Amaury Matamoros Age: 70 yrs Sex: Male : 1950 Arrival Date: 03/16/2021 Time: 19:56 Bed 13 Private MD: Diagnosis: Coronavirus infection, unspecified Presentation: 03/16 19:56 Chief complaint: Patient states: Pt stated, " I just left the hospital a little while kg ago and I dont feel right x 1 hr." Pt is COVID +. Coronavirus screen: Vaccine status: Patient reports being unvaccinated. Client reports previous positive COVID test result. Pt unsure of what day he test positive. Ebola Screen: Patient negative for fever greater than or equal to 101.5 degrees Fahrenheit, and additional compatible Ebola Virus Disease symptoms Patient denies exposure to infectious person. Patient denies travel to an Ebola-affected area in the 21 days before illness onset. Initial Sepsis Screen: Does the patient meet any 2 criteria? No. Patient's initial sepsis screen is negative. Does the patient have a suspected source of infection? No. Patient's initial sepsis screen is negative. Risk Assessment: Do you want to hurt yourself or someone else? Patient reports no desire to harm self or others. Onset of symptoms is unknown. 19:56 Method Of Arrival: Wheelchair kg 19:56 Acuity: ALEJANDRA 3 kg Triage Assessment: 20:00 General: Appears in no apparent distress. Behavior is calm, cooperative, appropriate kg for age, quiet. Pain: Complains of pain in left leg Pain currently is 10 out of 10 on a pain scale. at worst was 10 out of 10 on a pain scale. Historical: - Allergies: 20:00 PENICILLINS; kg - Home Meds: 20:00 aspirin 81 mg Oral chew 1 tab once daily [Active]; Metformin Oral [Active]; kg - PMHx: 20:00 Cellulitis; Diabetes - NIDDM; Hypertension; kg - PSHx: 20:00 Left AKA; kg - Immunization history:: Adult Immunizations not immunized. - Social history:: Smoking status: Patient denies any tobacco usage or history of. Screenin:01 Abuse screen: Denies threats or abuse. Denies injuries from another. Nutritional kg screening: No deficits noted. Tuberculosis screening: No symptoms or risk factors identified. Fall Risk Fall in past 12 months (25 points). Secondary diagnosis (15 points) impaired mobility, IV access (20 points). Ambulatory Aid- Crutches/Cane/Walker (15 pts). Gait- Impaired (20 pts.). Mental Status- Oriented to own ability (0 pts). Total Monahan Fall Scale indicates Low Risk Score (25-44 pts). Fall prevention measures have been instituted. Side Rails Up X 2 Placed close to Nursing Station Frequent Obs/Assesments occuring As available Patient and Family Educated on Fall Prevention Program and strategies. Assessment: 20:30 Respiratory: Airway is patent Breath sounds are clear bilaterally. 3 Vital Signs: 19:56 BP 133 / 84; Pulse 98; Resp 18; Temp 97.8(TE); Pulse Ox 86% on R/A; Weight 63.5 kg (R); kg Height 5 ft. 3 in. (160.02 cm) (R); Pain 10/10; 22:11 BP 146 / 94; Pulse 87; Resp 18; Pulse Ox 98% on 3 lpm NC; 3 19:56 Body Mass Index 24.80 (63.50 kg, 160.02 cm) kg ED Course: 19:56 Patient arrived in ED. cf2 20:00 Triage completed. kg 20:01 Patient has correct armband on for positive identification. Placed in gown. Bed in low kg position. Call light in reach. Side rails up X2. 20:06 Durga Manning PA is PHCP. [facility] 20:06 Wally Miles MD is Attending Physician. [facility] 20:24 Soraya Whiteside, COURTNEY is Primary Nurse. [facility] 20:30 Garo Us MD is Referral Physician. [facility] 20:30 Arm band placed on right wrist. [facility] 20:30 Door closed. Lights dimmed. 3 20:30 No provider procedures requiring assistance completed. 3 22:12 Patient did not have IV access during this emergency room visit. 3 Administered Medications: No medications were administered Outcome: 20:30 Discharge ordered by . [facility] 22:12 Discharged to home via wheelchair, with family. 3 22:12 Condition: stable 22:12 Discharge instructions given to patient, family, Instructed on discharge instructions, follow up and referral plans. Demonstrated understanding of instructions, follow-up care. 22:13 Patient left the ED. lh3 Signatures: Durga Manning PA PA jmm Frazier, [place] 2 Lakesha Smith RN RN kg Soraya Whiteside RN RN lh3
== END 2021-03-16 22:13 | disposition home or self-care (01) ==
LOC: ER 19:45
DX: U07.1 COVID-19 (principal); I10 Essential (primary) hypertension; E11.9 Type 2 diabetes mellitus without complications; Z79.82 Long term (current) use of aspirin; Z88.0 Allergy status to penicillin
CPT/HCPCS: 99281

== ENCOUNTER 2021-03-21 15:13 | Inpatient (IN) | payer OTHER ==
--- OUTSIDE RECORDS SUMMARY | 2021-03-21 15:23 | XMS REPORT | Continuity of Care Document ---
:1950 Author Organization [facility] t Address [address] [place] [address] Care Team Providers Name Role Phone Laney [...] Date Date Clinician Penicill Drug Active Rash [facility] ins Allergy 12-13 [facility] - 00[facility]: [facility] 00 Center Penicill Adverse Active Info Not [facility] Reaction Available [facility] - [facility] Clinics Social History Social Habit Start Date Stop Date Quantity Comments Source Sex Assigned At [facility] Alcohol intake 2020-10-04 2020-10-04 [facility] 00:00:00 of alcohol [facility] (finding) Tobacco use and 2020-10-04 2020-10-04 Never used [facility] - exposure 00:00:00 00:00:00 [facility] Smoking Status Start Date Stop Date Source Current every day smoker 2020-10-04 00:00:00 [facility] Medications Ordered Filled Start Stop Current [...] :00 total) by Center mouth daily. amLODIPine 2020-2021- No 2.5mg QD Take [address] [facility] [address] (NORVASC) 10-04-22 tablet [facility] - 2.5 MG 00:00: 23:59 (2.5 mg Medical tablet 00 :00 total) by Center mouth daily. pantoprazol 2020-0 Yes 40mg Q.5D Take [address] [facility] [address] e 3-21 tablet (40 [facility] - (PROTONIX) 00:00: mg total) Me dical 40 MG 00 by mouth 2 Center tablet (two) times daily. pantoprazol 2020-0 Yes 40mg Q.5D Take [address] [facility] [address] [facility] 3-21 tablet (40 [facility] - (PROTONIX) 00:00: mg total) Me dical 40 MG 00 by mouth 2 Center tablet (two) times daily. pantoprazol 2020-0 Yes 40mg Q.5D Take [address] [facility] [address] [facility] 3-21 tablet (40 [facility] - (PROTONIX) 00:00: mg total) Me dical 40 MG 00 by mouth 2 Center tablet (two) times daily. pantoprazol 2020-0 Yes 40mg Q.5D Take [address] [facility] [address] [facility] 3-21 tablet (40 [facility] - (PROTONIX) 00:00: mg total) Me dical 40 MG 00 by mouth 2 Center tablet (two) times daily. pantoprazol 1-0 Yes 40mg Q.5D Take [address] [facility] [address] e 3-21 tablet (40 [facility] - (PROTONIX) 00:00: mg total) Me dical 40 MG 00 by mouth 2 Center tablet (two) times daily. pantoprazol 2020-0 Yes 40mg Q.5D Take [address] [facility] e 3-21 tablet (40 [facility] - (PROTONIX) 00:00: mg total) Me dical 40 MG 00 by mouth 2 Center tablet (two) times daily. acetaminoph 2020-2021- No 650mg Take [address] en 10-03 03-16 tablets [facility] - (TYLENOL) 00:00: 23:59 [...] 12 (twelve) hours for 10 days. doxycycline No 100mg Take [address] (MONODOX) 10-03 capsule [facility] - 100 MG 00:00: 23:59 (100 mg Medical capsule 00 :00 total) by Center mouth every 12 (twelve) hours for 10 days. Lisinopril Lisinopril Yes Alfonzo [address] [facility] [address] Mera [facility] ent [facility] Hydrochloro Hydrochloro Yes Alfonzo [address] thiazide thiazide Mera in the Luke s - morning [facility] ent [facility] Pantoprazol Pantoprazol Yes Alfonzo [address] e Sodium e Sodium Mera [facility] ent [facility] Metoprolol Metoprolol Yes Alfonzo [address] Tartrate Tartrate Mera with food [facility] ent [facility] Ferrous Ferrous Yes Alfonzo [address] Sulfate Sulfate Mera [facility] ent [facility] Amlodipine Amlodipine Yes Alfonzo [address] Besylate Besylate Mera [facility] ent [facility] Gabapentin Gabapentin Yes Alfonzo [address] Mera [facility] ent [facility] Metformin Metformin Yes Alfonzo [address] HCl HCl Mera with a [facility] - meal [facility] ent [facility] Vital Signs Vital Name Observation Time Observation Value Comments Source Systolic blood 2020-10-03 19:17:00 111 mm[Hg] [facility] - pressure [facility] Diastolic blood 2020-10-03 19:17:00 61 mm[Hg] [facility] Heart rate 2020-10-03 19:17:00 75 /min [facility] Body temperature 2020-10-03 19:17:00 36.94 Latesha [facility] Respiratory rate 2020-10-03 19:17:00 17 /min [facility] Oxygen saturation in 2020-10-03 19:17:00 98 /min [facility] - Arterial blood by Medical Ce nter Pulse oximetry Body weight 2020-10-03 07:05:00 51.982 kg [facility] BMI 2020-10-03 07:05:00 20.96 kg/m2 [facility] Body height 2020-09-30 05:22:00 157.5 cm [facility] Procedures Procedure Date / Time Performed Performing Clinician [facility] e POCT-GLUCOSE METER 2020-10-03 18:09:[address] [facility] HEPATITIS B PCR, 2020-10-03 15:49:00 Narda [facility] HEPATITIS C PCR, 2020-10-03 15:49:00 Sarkis Laboy [facility] POCT-GLUCOSE METER 2020-10-03 11:48:[address] [facility] POCT-GLUCOSE METER 2020-10-03 08:34:[address] [facility] CBC W/PLT COUNT & AUTO 2020-10-03 04:35:00 Nate Fields [facility] CBC (HEMOGRAM ONLY) 2020-10-03 04:35:00 Delmi Peguero [facility] BASIC METABOLIC PANEL (7) 2020-10-03 04:35:00 Delmi Peguero [facility] ACTIN (SMOOTH MUSCLE) 2020-10-03 04:35:00 Kiah Nguyen [facility] - ANTIBODY, IGG [facility] ALPHA FETOPROTEIN (AFP), 2020-10-03 04:35:00 Al-Hillan, [facility] - TUMOR MARKER [facility] [id number]\\, 2020-10-03 04:35:00 Wendy [facility] - SERUM [facility] ANTI-NUCLEAR ANTIBODY 2020-10-03 04:35:00 Wendy [facility] - (GAMAL) [facility] BILIRUBIN, DIRECT 2020-10-03 04:35:[address] [facility] CERULOPLASMIN 2020-10-03 04:35:00 Wendy [facility] HEPATITIS A ANTIBODY, IGG 2020-10-03 04:35:[address] [facility] HEPATITIS B SURFACE 2020-10-03 04:35:[address] [facility] - ANTIBODY [facility] HEPATITIS B SURFACE 2020-10-03 04:35:[address] [facility] - ANTIGEN [facility] HEPATITIS B CORE 2020-10-03 04:35:[address] [facility] - ANTIBODY, TOTAL [facility] HEPATITIS C ANTIBODY 2020-10-03 04:35:[address] [facility] MITOCHONDRIA M2 ANTIBODY 2020-10-03 04:35:00 Wendy [facility] - (IGG) [facility] PROTHROMBIN TIME/INR 2020-10-03 04:35:[address] [facility] POCT-GLUCOSE METER 2020-10-02 21:19:[address] [facility] CBC W/PLT COUNT & AUTO 2020-10-02 17:29:00 Nate Fields [facility] VANCOMYCIN LEVEL, TROUGH 2020-10-02 17:29:00 Severo Martinez [facility] POCT-GLUCOSE METER 2020-10-02 17:24:[address] [facility] POCT-GLUCOSE METER 2020-10-02 11:21:[address] [facility] POCT-GLUCOSE METER 2020-10-02 08:03:[address] [facility] CBC W/PLT COUNT & AUTO 2020-10-02 03:39:00 Nate Fields [facility] COMPREHENSIVE METABOLIC 2020-10-02 03:39:[address] [facility] POCT-GLUCOSE METER 2020-10-01 21:23:00 [facility] HEMOGLOBIN A1C 2020-10-01 14:34:00 Delmi Peguero [facility] CBC W/PLT COUNT & AUTO 2020-10-01 12:08:00 Adrienne Ortiz [facility] POCT-GLUCOSE METER 2020-10-01 10:58:00 [facility] REPORT OF PROCEDURE - 2020-10-01 10:35:58 Sarkis Laboy [facility] ENDOSCOPY [facility] VANCOMYCIN LEVEL, RANDOM 2020-10-01 10:06:00 Meghann Grier [facility] TISSUE EXAM 2020-10-01 09:43:00 Sarkis Laboy [facility] UPPER ENDOSCOPY,BIOPSY 2020-10-01 09:14:00 Sarkis Laboy [facility] POCT-GLUCOSE METER 2020-10-01 08:23:00 [facility] POCT-GLUCOSE METER 2020-10-01 05:11:[address] [facility] VITAMIN B12 AND FOLATE 2020-10-01 04:42:00 Ford Espinoza [facility] IRON, TIBC, % SAT. 2020-10-01 04:42:00 Ford Espinoza [facility] 2020-10-01 04:42[facility]00 [facility]OV[facility] ([facility] & 2020-10-01 02:44:00 Nate Fields Ma [facility] - REF LABS) [facility] COMPREHENSIVE METABOLIC 2020-10-01 02:44:00 Nate Fields [facility] CBC W/PLT COUNT & AUTO 2020-10-01 02:44:00 Adrienne Ortiz [facility] DIFFERENTIAL [facility] CBC W/PLT COUNT & AUTO 2020-09-30 20:01:00 [facility] POCT-GLUCOSE METER 2020-09-30 20:00:00 [facility] ([facility] ONLY) 2020-09-30 15:15:00 Nate Fields [facility] POCT-GLUCOSE METER 2020-09-30 14:20:00 [facility] US ABDOMEN LIMITED 2020-09-30 11:32:00 Ford Espinoza Rhys [facility] BLOOD CULTURE 2020-09-30 09:45:00 Planegg [facility] BLOOD CULTURE 2020-09-30 09:22:00 [facility] W/PLT COUNT & AUTO 2020-09-30 09:22:00 [facility] LACTIC ACID, VENOUS 2020-09-30 09:22:00 [facility] URINALYSIS W/ REFLEX 2020-09-30 09:22:00 [facility] [place] [facility] - URINE CULTURE [facility] XR CHEST 1 VIEW PORTABLE 2020-09-30 08:39:[address] [facility] - / BEDSIDE [facility] HEMOGLOBIN A1C 2020-09-30 06:52:00 Malcolm Hernandez [facility] POCT-GLUCOSE METER 2020-09-30 06:27:00 Ford Espinoza [facility] PROTHROMBIN TIME/INR 2020-09-30 06:22:00 Malcolm Hernandez [facility] APTT 2020-09-30 06:22:[address] [facility] COMPREHENSIVE METABOLIC 2020-09-30 06:22:00 Malcolm Hernandez [facility] REPORT OF PROCEDURE - 2020-09-30 00:00:00 ProviderSherwin [facility] ENDOSCOPY SCAN Scanning [facility] Plan of Care Planned Activity Planned [...] Medica l Center colon (procedure) [code = 929733374] Future Scheduled [address] Test 00:00:00 malignant neoplasm of Medica l Center colon (procedure) [code = 868827451] Future Scheduled [address] [facility] Test 00:00:00 malignant neoplasm of [facility] Center colon (procedure) [code = 145904366] Future Scheduled [address] Test 00:00:00 malignant neoplasm of Medica [facility] Center colon (procedure) [code = 071396936] Future Scheduled [address] [facility] - Test 00:00:00 malignant neoplasm of Medica [facility] Center colon (procedure) [code = 843375303] Future Scheduled [address] [facility] - Test 00:00:00 malignant neoplasm of Medica l Center colon (procedure) [code = 348786548] Encounters Start End Encounter Admission Attending Care Care Encounter Source Date/Time Date/Time Type Type Clinicians Facility Department ID 2021-02-24 2021-02-24 Outpatient [facility] [id number] [facility] 2021-02-17 2021-02-17 Outpatient [facility] [id number] [facility] 2021-02-10 2021-02-10 Outpatient [facility] [id number] [facility] 2020-09-30 2020-10-03 [facility] Lynda [facility] [id number] [facility] 20:23:00 Encounter Alice Jackson [facility] 2020-09-30 2020-10-03 [facility] Ford Espinoza [facility] [id number] [facility] 20:23:00 Encounter Renetta Alice Niranjan [facility] 2020-10-01 2020-10-01 Surgery Narda, [facility] [id number] 09:05:00 10:17:00 [facility] 2020-10-01 2020-10-01 Surgery Narda, [facility] [id number] 09:05:00 10:17:00 [facility] 2020-10-01 2020-10-01 Anesthesia Vandana, [facility] [id number] 09:24:00 10:04:00 Event [facility] 2020-10-01 2020-10-01 Anesthesia Vandana, [facility] [id number] 09:24:00 10:04:00 Event [facility] 2020-09-30 2020-09-30 Travel [facility] [id number] [facility] 00:00:00 [facility] 2020-09-30 2020-09-30 Travel [facility] [id number] [facility] 00[facility]00 [facility] 2020-06-24 2020-06-24 [facility] [id number] 2020-06-03 2020-06-03 [facility] [id number] [facility] 2020-05-25 2020-05-25 [facility] [id number] [facility] 2020-05-13 2020-05-13 [facility] [id number] [facility] 2020-04-29 2020-04-29 [facility] [id number] [facility] 2020-04-15 2020-04-15 [facility] [id number] [facility] 2020-04-15 2020-04-15 [facility] [id number] [facility] 2020-04-07 2020-04-07 [facility] [id number] [facility] 2020-03-26 2020-03-26 [facility] [id number] 09:10:00 09:10:[address] [email or web address] [place] [address] [facility] Medicine Outpati ent Clinics 2019-09-21 2019-09-21 [facility] [id number] 21:47:00 21:47:00 t [facility] Medicine Outpati ent Clinics 2019-09-19 2019-09-19 [facility] [id number] 13:30:00 13:30:00 t [facility] [address] [facility] Medicine Outpati ent Clinics 2019-09-10 2019-09-10 [facility] [id number] 10:15:00 10:15:[address] [facility] [address] [facility] Medicine Outpati ent Clinics 2019-06-20 2019-06-20 [facility] [id number] 13:20:00 13:20:00 t [facility] [address] [facility] Medicine Outpati ent Clinics 2019-03-21 2019-03-21 [facility] [id number] 11:20:00 11:20:[address] [facility] Medicine Outpati ent Clinics Results Test [...] patients withautoimmune hepatitis (AIH) type 1, approxi pvaltw54% of patients with a utoimmune cholangitis,chitra roximately 30% of patients with p rimary biliarycirrhosi s, and approximately 2 % of healthy people.High giulia ues are closely correlated with AIH type 1. ELIANA (test code = Performing Lab ELIANA) [facility] [address] [place] [address] Obdulia Ulrich MD, PhD, MARINAL[facility] Center[facility] (Smooth Muscle) Antibody, [id number] 01:25:00 Test Item Value Reference Range Interpretation [...] ELIANA (test code Performing Lab = ELIANA) [facility] [address] [place] [address] Obdulia Ulrich MD, PhD, MARINALos [facility] Center[facility] (Smooth Muscle) Antibody, [id number] 01:25:00 Test Item Value Reference Range Interpretation Comments Anti-Smooth <20 See Note: U Reference Range :<20 Muscle Ab NEGATIVE> O R = 20 (test code = POSITIVE Antibo dies [id number]) recognizing act in are the main compon [...] (test code Performing Lab = ELIANA) [facility] [employer] [place] [address] [place] [address] Obdulia Ulrich MD, PhD, MARINALos [facility] Center[facility] (Smooth Muscle) Antibody, [id number] 01:25:00 Test Item Value Reference Range Interpretation Comments Anti-Smooth <20 See Note: U Reference Range :<20 Muscle Ab NEGATIVE> O R = 20 (test code = POSITIVE Antibo dies [id number]) recognizing act in are the main compon [...] ELIANA (test code Performing Lab = ELIANA) [facility] [address] [place] [address] Obdulia Ulrich MD, PhD, MARINALos [facility] Center[facility] (Smooth Muscle) Antibody, [id number] 01:25:00 Test Item Value Reference Range Interpretation Comments Anti-Smooth <20 See Note: U Reference Range :<20 Muscle Ab NEGATIVE> O R = 20 (test code = POSITIVE Antibo dies [id number]) recognizing act in are the main compon [...] (test code Performing Lab = ELIANA) [facility] [employer] [place] [address] [place] [address] Obdulia Ulrich MD, PhD, MARINA [facility] (Smooth Muscle) Antibody, [id number] 01:25:00 Test Item Value Reference Range Interpretation [...] (test code Performing Lab = ELIANA) [facility] [place] [address] [place] [address] Obdulia Ulrich MD, PhD, MARINA [facility] 14:07:00 Test Item Value Reference Range Interpretation Comments Ceruloplasmin (test code 39 mg/dL 18-36 H = 20190906) ELIANA (test code = ELIANA) Performing Lab *GIULIA [facility], [address] [place] [phone] Nereida Rocha MD Lab Interpretation (test Abnormal code = 58667-8) [facility] 14:07:00 Test Item Value Reference Range Interpretation Comments Ceruloplasmin (test code 39 mg/dL 18-36 H = 5203160) ELIANA (test code = ELIANA) Performing Lab *GIULIA [facility], [address] [place] [phone] Nereida Rocha MD Lab Interpretation (test Abnormal code = 69940-9) [facility]2021-03-24 14:07:00 Test Item Value Reference Range Interpretation Comments Ceruloplasmin (test code 39 mg/dL 18-36 H = 20190906) ELIANA (test code = ELIANA) Performing Lab *GIULIA [facility], [address] [place] [address] Nereida Rocha MD Lab Interpretation (test Abnormal code = 73221-2) [facility]20[facility]-24 14:07:00 Test Item Value Reference Range Interpretation Comments Ceruloplasmin (test code 39 mg/dL 18-36 H = 20190906) ELIANA (test code = ELIANA) Performing Lab *GIULIA [facility], [address] [place] [phone] Nereida Rocha MD Lab Interpretation (test Abnormal code = 59573-5) [facility] 14:07:00 Test Item Value Reference Range Interpretation Comments Ceruloplasmin (test code 39 mg/dL 18-36 H = 20190906) ELIANA (test code = ELIANA) Performing Lab *GIULIA [facility], [address] [place], [place] [phone] Nereida Rocha MD Lab Interpretation (test Abnormal code = 82721-7) [facility]-24 14:07:00 Test Item Value Reference Range Interpretation Comments Ceruloplasmin (test code 39 mg/dL 18-36 H = 20190906) ELIANA (test code = ELIANA) Performing Lab *GIULIA [facility], [address] [place] [phone] Nereida Rocha MD Lab Interpretation (test Abnormal code = 38517-5) [facility] Antibody (IgG)2020-10-06 13:29:00 Test Item Value Reference Range Interpretation Comments Mitochondria M2 Ab 20.3 U See Note: H Reference (test code = 7887233) Range: NEGATIVE: < OR = 20.0EQUIVOCAL: 20.1-24.9POSITI VE: > OR = 25.0 ELIANA (test code = ELIANA) Performing Lab EZ [facility] [address] [place] [address] Obdulia Ulrich MD, PhD, MARINA Lab Interpretation Abnormal (test code = 48720-5) [facility] Antibody (IgG)2020-10-06 13:29:00 Test Item Value Reference Range Interpretation Comments Mitochondria M2 Ab 20.3 U See Note: H Reference (test code = 2979417) Range: NEGATIVE: < OR = 20.0EQUIVOCAL: 20.1-24.9POSITI VE: > OR = 25.0 ELIANA (test code = ELIANA) Performing Lab EZ [facility] [address] [address] Obdulia Ulrich MD, PhD, MARINA Lab Interpretation Abnormal (test code = 53759-9) [facility] Antibody (IgG)2020-10-06 13:29:00 Test Item Value Reference Range Interpretation Comments Mitochondria M2 Ab 20.3 U See Note: H Reference (test code = 9329284) Range: NEGATIVE: < OR = 20.0EQUIVOCAL: 20.1-24.9POSITI VE: > OR = 25.0 ELIANA (test code = ELIANA) Performing Lab EZ [facility] [address] [address] Obdulia Ulrich MD, PhD, MARINA Lab Interpretation Abnormal (test code = 02177-6) [facility] Antibody (IgG)2020-10-06 13:29:00 Test Item Value Reference Range Interpretation Comments Mitochondria M2 Ab 20.3 U See Note: H Reference (test code = 9417657) Range: NEGATIVE: < OR = 20.0EQUIVOCAL: 20.1-24.9POSITI VE: > OR = 25.0 ELIANA (test code = ELIANA) Performing Lab EZ [facility] [place] [address] [address] Obdulia Ulrich MD, PhD, MARINA Lab Interpretation Abnormal (test code = 68469-9) [facility] Antibody (IgG)2020-10-06 13:29:00 Test Item Value Reference Range Interpretation Comments Mitochondria M2 Ab 20.3 U See Note: H Reference (test code = 3383724) Range: NEGATIVE: < OR = 20.0EQUIVOCAL: 20.1-24.9POSITI VE: > OR = 25.0 ELIANA (test code = ELIANA) Performing Lab EZ [facility] [address] [place] [address] Obdulia Ulrich MD, PhD, MARINA Lab Interpretation Abnormal (test code = 52760-3) [facility] Antibody (IgG)2020-10-06 13:29:00 Test Item Value Reference Range Interpretation Comments Mitochondria M2 Ab 20.3 U See Note: H Reference (test code = 4651515) Range: NEGATIVE: < OR = 20.0EQUIVOCAL: 20.1-24.9POSITI VE: > OR = 25.0 ELIANA (test code = ELIANA) Performing Lab EZ [facility] [address] [place] [address] Obdulia Ulrich MD, PhD, MARINA Lab Interpretation Abnormal (test code = 66632-2) [facility]) 2020-10-05 14:00:00 Test Item Value Reference Range Interpretation Comments Result (test code = No growth in 5 days 6463-4) [facility] Culture - Routine (Left Venipuncture) 2020-10-05 14:00:00 Test Item Value Reference Range Interpretation Comments Result (test code = No growth in 5 days 6463-4) [facility] Culture - Routine (Left Venipuncture) 2020-10-05 14:00:00 Test Item Value Reference Range Interpretation Comments Result (test code = No growth in 5 days 6463-4) [facility] Culture - Routine (Left Venipuncture) 2020-10-05 14:00:00 Test Item Value Reference Range Interpretation Comments Result (test code = No growth in 5 days 6463-4) [facility] Culture - Routine (Left Venipuncture) 2020-10-05 14:00:00 Test Item Value Reference Range Interpretation Comments Result (test code = No growth in 5 days 6463-4) [facility] Culture - Routine (Left Venipuncture) 2020-10-05 14:00:00 Test Item Value Reference Range Interpretation Comments Result (test code = No growth in 5 days 6463-4) [facility] [id number] 14:00:00 Test Item Value Reference Range Interpretation Comments CULTURE (BEAKER) (test No growth in 5 days code = 1095) BLOOD [id number] 11:00:00 Test Item Value Reference Range Interpretation Comments CULTURE (BEAKER) (test No growth in 5 days code = 1095) Hepatitis B PCR, [id number] 20:15:00 Test Item Value Reference Range Interpretation Comments HBV PCR, Quantitative HBV DNA not detected HBV DNA not (test code = 23903-7) detected ELIANA (test code = ELIANA) This test uses a Real-Time Polymerase Chain Reaction (RT-PCR) methodology and was performed using MADONNA AmpliPrep/MADONNA TaqMan HBV Test, v2.0 ([employer] Reportable range for this assay is 20 - 170,000,000 IU per mL (1.30 - 8.23 Log IU/mL). Lab Interpretation Normal (test code = 58753-2) [facility], [id number] 20:15:00 Test Item Value Reference Range Interpretation Comments HBV PCR, Quantitative HBV DNA not detected HBV DNA not (test code = 64640-8) detected ELIANA (test code = ELIANA) This test uses a Real-Time Polymerase Chain Reaction (RT-PCR) methodology and was performed using [employer] AmpliPrep/MADONNA TaqMan HBV Test, v2.0 ([employer] Reportable range for this assay is 20 - 170,000,000 IU per mL (1.30 - 8.23 Log IU/mL). Lab Interpretation Normal (test code = 92647-8) [facility], [id number] 20:15:00 Test Item Value Reference Range Interpretation Comments HBV PCR, Quantitative HBV DNA not detected HBV DNA not (test code = 56048-7) detected ELIANA (test code = ELIANA) This test uses a Real-Time Polymerase Chain Reaction (RT-PCR) methodology and was performed using [employer]NA AmpliPrep/MADONNA TaqMan HBV Test, v2.0 ([employer] Reportable range for this assay is 20 - 170,000,000 IU per mL (1.30 - 8.23 Log IU/mL). Lab Interpretation Normal (test code = 59482-4) [facility], [id number] 20:15:00 Test Item Value Reference Range Interpretation Comments HBV PCR, Quantitative HBV DNA not detected HBV DNA not (test code = 49312-5) detected ELIANA (test code = ELIANA) This test uses a Real-Time Polymerase Chain Reaction (RT-PCR) methodology and was performed using [employer] AmpliPrep/MADONNA TaqMan HBV Test, v2.0 ([employer] Reportable range for this assay is 20 - 170,000,000 IU per mL (1.30 - 8.23 Log IU/mL). Lab Interpretation Normal (test code = 13025-5) [facility] B PCR, [id number] 20:15:00 Test Item Value Reference Range Interpretation Comments HBV PCR, Quantitative HBV DNA not detected HBV DNA not (test code = 93584-3) detected ELIANA (test code = ELIANA) This test uses a Real-Time Polymerase Chain Reaction (RT-PCR) methodology and was performed using [employer] AmpliPrep/MADONNA TaqMan HBV Test, v2.0 ([employer] Reportable range for this assay is 20 - 170,000,000 IU per mL (1.30 - 8.23 Log IU/mL). Lab Interpretation Normal (test code = 23506-9) [facility], [id number] 20:15:00 Test Item Value Reference Range Interpretation Comments HBV PCR, Quantitative HBV DNA not detected HBV DNA not (test code = 71272-9) detected ELIANA (test code = ELIANA) This test uses a Real-Time Polymerase Chain Reaction (RT-PCR) methodology and was performed using [employer] AmpliPrep/MADONNA TaqMan HBV Test, v2.0 ([employer] Reportable range for this assay is 20 - 170,000,000 IU per mL (1.30 - 8.23 Log IU/mL). Lab Interpretation Normal (test code = 04428-4) [facility], [id number] 20:15:00 Test Item Value Reference Range Interpretation Comments HBV RESULT COMPONENT HBV DNA not detected HBV DNA not detected (BEAKER) (test code = 2701) This test uses a Real-Time Polymerase Chain Reaction (RT-PCR) methodology and was performed using [employer] AmpliPrep/MADONNA TaqMan HBV Test, v2.0 ([employer]Reportable range for this assay is 20 - 170,000,000 IU per mL (1.30 - 8.23 Log IU/mL).Hepatitis C PCR, [id number] 19:56:00 Test Item Value Reference Range Interpretation Comments HCV PCR, Quantitative [id number] See_Comment H [Auto mated (test code = 57356-6) messag e] The system which generated this result transmitted reference range : <15 IU/mL. The reference range was not used to interpret this result as normal/abnormal . ELIANA (test code = ELIANA) This test uses a Real-Time Polymerase Chain Reaction (RT-PCR) methodology and was performed using M[employer]NA Ampliprep/MADONNA TaqMan HCV test kit version 2.0 ([employer] Reportable range for this assay is 15 - 100,000,000 IU per mL (1.18 - 8.00 Log IU/mL). Lab Interpretation Abnormal (test code = 67319-7) [facility] C PCR, [id number] 19:56:00 Test Item Value Reference Range Interpretation Comments HCV PCR, Quantitative [id number] See_Comment H [Auto mated (test code = 54340-6) messag e] The system which generated this result transmitted reference range : <15 IU/mL. The reference range was not used to interpret this result as normal/abnormal . ELIANA (test code = ELIANA) This test uses a Real-Time Polymerase Chain Reaction (RT-PCR) methodology and was performed using [employer]NA Ampliprep/MADONNA TaqMan HCV test kit version 2.0 ([employer] Reportable range for this assay is 15 - 100,000,000 IU per mL (1.18 - 8.00 Log IU/mL). Lab Interpretation Abnormal (test code = 16316-5) [facility] C PCR, [id number] 19:56:00 Test Item Value Reference Range Interpretation Comments HCV PCR, Quantitative [id number] See_Comment H [Auto mated (test code = 59164-6) messag e] The system which generated this result transmitted reference range : <15 IU/mL. The reference range was not used to interpret this result as normal/abnormal . ELIANA (test code = ELIANA) This test uses a Real-Time Polymerase Chain Reaction (RT-PCR) methodology and was performed using [employer] Ampliprep/MADONNA TaqMan HCV test kit version 2.0 ([employer] Reportable range for this assay is 15 - 100,000,000 IU per mL (1.18 - 8.00 Log IU/mL). Lab Interpretation Abnormal (test code = 91774-6) [facility] C PCR, [id number] 19:56:00 Test Item Value Reference Range Interpretation Comments HCV PCR, Quantitative [id number] See_Comment H [Auto mated (test code = 50701-9) messag e] The system which generated this result transmitted reference range : <15 IU/mL. The reference range was not used to interpret this result as normal/abnormal . ELIANA (test code = ELIANA) This test uses a Real-Time Polymerase Chain Reaction (RT-PCR) methodology and was performed using [employer] Ampliprep/MAD[employer]NA TaqMan HCV test kit version 2.0 ([employer] Reportable range for this assay is 15 - 100,000,000 IU per mL (1.18 - 8.00 Log IU/mL). Lab Interpretation Abnormal (test code = 34509-4) [facility] C PCR, [id number] 19:56:00 Test Item Value Reference Range Interpretation Comments HCV PCR, Quantitative [id number] See_Comment H [Auto mated (test code = 21936-5) messag e] The system which generated this result transmitted reference range : <15 IU/mL. The reference range was not used to interpret this result as normal/abnormal . ELIANA (test code = ELIANA) This test uses a Real-Time Polymerase Chain Reaction (RT-PCR) methodology and was performed using [employer] Ampliprep/MAD[employer]NA TaqMan HCV test kit version 2.0 ([employer] Reportable range for this assay is 15 - 100,000,000 IU per mL (1.18 - 8.00 Log IU/mL). Lab Interpretation Abnormal (test code = 24929-4) [facility] C PCR, [id number] 19:56:00 Test Item Value Reference Range Interpretation Comments HCV PCR, Quantitative [id number] See_Comment H [Auto mated (test code = 44147-4) rajendraag e] The system which generated this result transmitted reference range : <15 IU/mL. The reference range was not used to interpret this result as normal/abnormal . ELIANA (test code = ELIANA) This test uses a Real-Time Polymerase Chain Reaction (RT-PCR) methodology and was performed using [employer] Ampliprep/MADONNA TaqMan HCV test kit version 2.0 ([employer] Reportable range for this assay is 15 - 100,000,000 IU per mL (1.18 - 8.00 Log IU/mL). Lab Interpretation Abnormal (test code = 22928-8) [facility], [id number] 19:56:00 Test Item Value Reference Range Interpretation Comments HCV NUMERIC RESULT (BEAKER) 498672 IU/mL <15 H (test code = 2700) This test uses a Real-Time Polymerase Chain Reaction (RT-PCR) methodology and was performed using [employer] Ampliprep/MADONNA TaqMan HCV test kit version 2.0 ([employer]Reportable range for this assay is 15 - 100,000,000 IU per mL (1.18 - 8.00 Log IU/mL).Anti-Nuclear Antibody (GAMAL) 2020-10-04 12:41:00 Test Item Value Reference Range Interpretation Comments GAMAL (test code = 25320-9) Negative Negative ELIANA (test code = ELIANA) Test performed by IFA method. Lab Interpretation (test Normal code = 87246-1) [facility]2020-10-04 12:41:00 Test Item Value Reference Range Interpretation Comments GAMAL (test code = 70922-3) Negative Negative ELIANA (test code = ELIANA) Test performed by IFA method. Lab Interpretation (test Normal code = 53693-3) [facility] ([facility]AL)2020-10-04 12:41:00 Test Item Value Reference Range Interpretation Comments GAMAL (test code = 54916-9) Negative Negative ELIANA (test code = ELIANA) Test performed by IFA method. Lab Interpretation (test Normal code = 66443-8) [facility] (GAMAL)2020-10-04 12:41:00 Test Item Value Reference Range Interpretation Comments GAMAL (test code = 37758-2) Negative Negative ELIANA (test code = ELIANA) Test performed by IFA method. Lab Interpretation (test Normal code = 56042-3) [facility] ([facility]AMAL)2020-10-04 12:41:00 Test Item Value Reference Range Interpretation Comments GAMAL (test code = 17457-1) Negative Negative ELIANA (test code = ELIANA) Test performed by IFA method. Lab Interpretation (test Normal code = 81383-7) [facility] (GAMAL)2020-10-04 12:41:00 Test Item Value Reference Range Interpretation Comments GAMAL (test code = 81074-0) Negative Negative ELIANA (test code = ELIANA) Test performed by IFA method. Lab Interpretation (test Normal code = 89841-9) [facility]CLE[facility]TIBODY (GAMAL)2020-10-04 12:41:00 Test Item Value Reference Range Interpretation Comments ANTI-NUCLEAR ANTIBODY (GAMAL) (BEAKER) Negative Negative (test code = 418) Test performed by IFA method.POC-Glucose [id number] 18:23:00 Test Item Value Reference Range Interpretation Comments POC-Glucose Meter (test 127 mg/dL 70-110 H : TE STED AT [facility] code = 1538) [address] [facility], [address] 30: Marketing Operations Analyst/Techni min ID = [id number] for Igbalajobi, She neto Lab Interpretation (test Abnormal code = 47636-2) [facility]ucose [id number] 18:23:00 Test Item Value Reference Range Interpretation Comments POC-Glucose Meter (test 127 mg/dL 70-110 H : TE STED AT [facility] code = 1538) [address] [facility], 770 30: Marketing Operations Analyst/Techni imn ID = [id number] for Igbalajobi, She neto Lab Interpretation (test Abnormal code = 65965-8) [facility] [id number] 18:23:00 Test Item Value Reference Range Interpretation Comments POC-Glucose Meter (test 127 mg/dL 70-110 H : TE STED AT [facility] code = 1538) [address] [facility], 770 30: Marketing Operations Analyst/Techni min ID = [id number] for Igbalajobi, She neto Lab Interpretation (test Abnormal code = 20157-9) [facility] [id number] 18:23:00 Test Item Value Reference Range Interpretation Comments POC-Glucose Meter (test 127 mg/dL 70-110 H : TE STED AT [facility] code = 1538) [address] [facility], 770 30: Marketing Operations Analyst/Techni min ID = [id number] for Igbalajobi, She neto Lab Interpretation (test Abnormal code = 67462-1) [facility]ucose [id number] 18:23:00 Test Item Value Reference Range Interpretation Comments POC-Glucose Meter (test 127 mg/dL 70-110 H : TE STED AT [facility] code = 1538) [address] [place] [address], 770 30: Marketing Operations Analyst/Techni min ID = [id number] for Igbalajobi, She neto Lab Interpretation (test Abnormal code = 85028-3) [facility] [id number] 18:23:00 Test Item Value Reference Range Interpretation Comments POC-Glucose Meter (test 127 mg/dL 70-110 H : TE STED AT [facility] code = 1538) [address] [place] [address], 770 30: Marketing Operations Analyst/Techni min ID = [id number] for Igbalajobi, She neto Lab Interpretation (test Abnormal code = 85794-1) [facility] [id number] 18:23:00 Test Item Value Reference Range Interpretation Comments POC-GLUCOSE METER 127 mg/dL 70-110 H : TESTED A T [facility] 67[address] (BEAKER) (test code = [facility], 1538) [address]: Marketing Operations Analyst/Techni min ID = [id number] for Igbalajobi, She neto POCT-GLUCOSE [id number] 12:00:00 Test Item Value Reference Range Interpretation Comments POC-GLUCOSE METER 78 mg/dL 70-110 : TESTED A T [facility] 6720 (BEAKER) (test code = [facility], 1538) [address]: Marketing Operations Analyst/Techni min ID = [id number] for Kassandra Woods Hepatitis B core antibody, [id number] 10:45:00 Test Item Value Reference Range Interpretation Comments Hep B Core Total Ab (test Reactive Nonreactive A code = 14622-9) ELIANA (test code = ELIANA) Marketing Operations Analyst ID - DBOperator ID - DBOperator ID - DB Lab Interpretation (test Abnormal code = 89401-3) [facility] antibody, [id number] 10:45:00 Test Item Value Reference Range Interpretation Comments Hep B Core Total Ab (test Reactive Nonreactive A code = 31672-5) ELIANA (test code = ELIANA) Marketing Operations Analyst ID - DBOperator ID - DBOperator ID - DB Lab Interpretation (test Abnormal code = 72229-9) [facility] antibody, [id number] 10:45:00 Test Item Value Reference Range Interpretation Comments Hep B Core Total Ab (test Reactive Nonreactive A code = 06267-0) ELIANA (test code = ELIANA) Marketing Operations Analyst ID - DBOperator ID - DBOperator ID - DB Lab Interpretation (test Abnormal code = 77042-0) [facility] antibody, [id number] 10:45:00 Test Item Value Reference Range Interpretation Comments Hep B Core Total Ab (test Reactive Nonreactive A code = 09476-5) ELIANA (test code = ELIANA) Marketing Operations Analyst ID - DBOperator ID - DBOperator ID - DB Lab Interpretation (test Abnormal code = 33920-9) [facility] core antibody, [id number] 10:45:00 Test Item Value Reference Range Interpretation Comments Hep B Core Total Ab (test Reactive Nonreactive A code = 15429-4) ELIANA (test code = ELIANA) Marketing Operations Analyst ID - DBOperator ID - DBOperator ID - DB Lab Interpretation (test Abnormal code = 10179-3) [facility] antibody, [id number] 10:45:00 Test Item Value Reference Range Interpretation Comments Hep B Core Total Ab (test Reactive Nonreactive A code = 58064-2) ELIANA (test code = ELIANA) Marketing Operations Analyst ID - DBOperator ID - DBOperator ID - DB Lab Interpretation (test Abnormal code = 69077-6) [facility] CORE ANTIBODY, [id number] 10:45:00 Test Item Value Reference Range Interpretation Comments HEPATITIS B CORE TOTAL ANTIBODY Reactive Nonreactive A (WENDI) (test code = 497) Marketing Operations Analyst ID - DBOperator ID - DBOperator ID - DBPOCT-GLUCOSE [id number] 08:50:00 Test Item Value Reference Range Interpretation Comments POC-GLUCOSE METER 83 mg/dL 70-110 : TESTED A T [facility] [address] (WENDI) (test code = [place], 1538) [address]: Marketing Operations Analyst/Techni min ID = [id number] for Kassandra Woods Fuenp-2-zotsfjargih9595-03-21 08:30:00 Test Item Value Reference Range Interpretation Comments A-1 Antitrypsin (test 189.40 mg/dL 90-200 code = 1825-9) ELIANA (test code = ELIANA) Marketing Operations Analyst ID - DBOperator ID - DBOperator ID - DB Lab Interpretation (test Normal code = 44868-5) [facility]-1-hczbuumxrtb2126-61-96 08:30:00 Test Item Value Reference Range Interpretation Comments A-1 Antitrypsin (test 189.40 mg/dL 90-200 code = 1825-9) ELIANA (test code = ELIANA) Marketing Operations Analyst ID - DBOperator ID - DBOperator ID - DB Lab Interpretation (test Normal code = 15976-7) [facility] HospitalAlpha-1-iowrkxyraan5441-92-75 08:30:00 Test Item Value Reference Range Interpretation Comments A-1 Antitrypsin (test 189.40 mg/dL 90-200 code = 1825-9) ELIANA (test code = ELIANA) Marketing Operations Analyst ID - DBOperator ID - DBOperator ID - DB Lab Interpretation (test Normal code = 95310-6) [facility] HospitalAlpha-1-nijujkofkkb3458-57-13 08:30:00 Test Item Value Reference Range Interpretation Comments A-1 Antitrypsin (test 189.40 mg/dL 90-200 code = 1825-9) ELIANA (test code = ELIANA) Marketing Operations Analyst ID - DBOperator ID - DBOperator ID - DB Lab Interpretation (test Normal code = 02944-8) [facility] HospitalAlpha-1-egowewherpb9214-44-37 08:30:00 Test Item Value Reference Range Interpretation Comments A-1 Antitrypsin (test 189.40 mg/dL 90-200 code = 1825-9) ELIANA (test code = ELIANA) Marketing Operations Analyst ID - DBOperator ID - DBOperator ID - DB Lab Interpretation (test Normal code = 97870-9) [facility] HospitalAlpha-1-iptwypjjhix9964-40-52 08:30:00 Test Item Value Reference Range Interpretation Comments A-1 Antitrypsin (test 189.40 mg/dL 90-200 code = 1825-9) ELIANA (test code = ELIANA) Marketing Operations Analyst ID - DBOperator ID - DBOperator ID - DB Lab Interpretation (test Normal code = 73736-0) [facility] HospitalALPHA-1-FMTTQIKMKEZ9365-71-88 08:30:00 Test Item Value Reference Range Interpretation Comments ALPHA-1 ANTITRYPSIN (BEAKER) 189.40 mg/dL 90.00-200.00 (test code = 502) Marketing Operations Analyst ID - DBOperator ID - DBOperator ID - DBHepatitis A antibody, IgG 2020-10-03 07:01:00 Test Item Value Reference Range Interpretation Comments Hep A IgG (test code = Reactive Nonreactive A 28672-0) ELIANA (test code = ELIANA) Marketing Operations Analyst ID - DB Lab Interpretation (test Abnormal code = 49811-9) [facility] antibody, [id number] 07:01:00 Test Item Value Reference Range Interpretation Comments Hep A IgG (test code = Reactive Nonreactive A 28365-7) ELIANA (test code = ELIANA) Marketing Operations Analyst ID - DB Lab Interpretation (test Abnormal code = 00859-6) [facility] antibody, [id number] 07:01:00 Test Item Value Reference Range Interpretation Comments Hep A IgG (test code = Reactive Nonreactive A 68418-1) ELIANA (test code = ELIANA) Marketing Operations Analyst ID - DB Lab Interpretation (test Abnormal code = 83985-2) [facility]Hep[facility] antibody, [id number] 07:01:00 Test Item Value Reference Range Interpretation Comments Hep A IgG (test code = Reactive Nonreactive A 28985-4) ELIANA (test code = ELIANA) Marketing Operations Analyst ID - DB Lab Interpretation (test Abnormal code = 80696-1) [facility] hospitaltis A antibody, [id number] 07:01:00 Test Item Value Reference Range Interpretation Comments Hep A IgG (test code = Reactive Nonreactive A 89570-8) ELIANA (test code = ELIANA) Marketing Operations Analyst ID - DB Lab Interpretation (test Abnormal code = 14435-0) [facility], [id number] 07:01:00 Test Item Value Reference Range Interpretation Comments Hep A IgG (test code = Reactive Nonreactive A 99738-1) ELIANA (test code = ELIANA) Marketing Operations Analyst ID - DB Lab Interpretation (test Abnormal code = 52503-3) [facility] [id number] 07:01:00 Test Item Value Reference Range Interpretation Comments HEPATITIS A IGG ANTIBODY (BEAKER) Reactive Nonreactive A (test code = 2797) Marketing Operations Analyst ID - DBpatitis C ubybgjpe5619-12-18 06:59:00 Test Item Value Reference Range Interpretation Comments Hepatitis C Ab (test code = Reactive Nonreactive A 22263-1) ELIANA (test code = ELIANA) Marketing Operations Analyst ID - DB Lab Interpretation (test Abnormal code = 53149-8) [facility] qbbblfhj9464-34-20 06:59:00 Test Item Value Reference Range Interpretation Comments Hepatitis C Ab (test code = Reactive Nonreactive A 12952-9) ELIANA (test code = ELIANA) Marketing Operations Analyst ID - DB Lab Interpretation (test Abnormal code = 32101-6) [facility] wwjsnhil0746-04-03 06:59:00 Test Item Value Reference Range Interpretation Comments Hepatitis C Ab (test code = Reactive Nonreactive A 82317-0) ELIANA (test code = ELIANA) Marketing Operations Analyst ID - DB Lab Interpretation (test Abnormal code = 31783-9) [facility] [id number] 06:59:00 Test Item Value Reference Range Interpretation Comments Hepatitis C Ab (test code = Reactive Nonreactive A 30979-1) ELIANA (test code = ELIANA) Marketing Operations Analyst ID - DB Lab Interpretation (test Abnormal code = 87360-9) [facility] C syciehgt1825-82-36 06:59:00 Test Item Value Reference Range Interpretation Comments Hepatitis C Ab (test code = Reactive Nonreactive A 03218-5) ELIANA (test code = ELIANA) Marketing Operations Analyst ID - DB Lab Interpretation (test Abnormal code = 11330-3) [facility] C [id number] 06:59:00 Test Item Value Reference Range Interpretation Comments Hepatitis C Ab (test code = Reactive Nonreactive A 91252-4) ELIANA (test code = ELIANA) Marketing Operations Analyst ID - DB Lab Interpretation (test Abnormal code = 75398-4) [facility] [id number] 06:59:00 Test Item Value Reference Range Interpretation Comments HEPATITIS C ANTIBODY (BEAKER) (test Reactive Nonreactive A code = 367) Marketing Operations Analyst ID - DBBasic Metabolic Hihek0223-69-08 06:38:00 Test Item Value Reference Range Interpretation [...] (test code = 7.8 mg/dL 8.4-10.2 L 08331-9) EGFR (test code = 39 mL/min/1.73 sq m [facility] [address]-9) NOT ACCURATE CREATININE CLEARANCE IN PREDICTING GLOMERULAR FILTRATION RATE . ESTIMATED GFR I S NOT APPLICABLE FOR DIALYSIS PATIENTS. ELIANA (test code = ELIANA) Marketing Operations Analyst ID - EDASI Lab Interpretation Abnormal (test code = 41585-2) [facility] HospitalBilirubin, [id number] 06:38:00 Test Item Value Reference Range Interpretation Comments Bilirubin, Direct (test 0.2 mg/dL 0.1-0.5 code = 1967-) ELIANA (test code = ELIANA) Marketing Operations Analyst ID - EDASI Lab Interpretation (test Normal code = 92458-0) [facility] HospitalBasi Metabolic [id number] 06:38:00 Test Item Value Reference Range Interpretation [...] (test code = 7.8 mg/dL 8.4-10.2 L 69564-1) EGFR (test code = 39 mL/min/1.73 sq m [facility] [address]-5) NOT ACCURATE CREATININE CLEARANCE IN PREDICTING GLOMERULAR FILTRATION RATE . ESTIMATED GFR I S NOT APPLICABLE FOR DIALYSIS PATIENTS. ELIANA (test code = ELIANA) Marketing Operations Analyst ID - EDASI Lab Interpretation Abnormal (test code = 18030-3) [facility] HospitalBilirubin, [id number] 06:38:00 Test Item Value Reference Range Interpretation Comments Bilirubin, Direct (test 0.2 mg/dL 0.1-0.5 code = 1968-01) ELIANA (test code = ELIANA) Marketing Operations Analyst ID - EDASI Lab Interpretation (test Normal code = 23823-1) [facility] [id number] 06:38:00 Test Item Value Reference Range Interpretation [...] (test code = 7.8 mg/dL 8.4-10.2 L 76230-8) EGFR (test code = 39 mL/min/1.73 [place] [address]-1) NOT ACCURATE CREATININE CLEARANCE IN PREDICTING GLOMERULAR FILTRATION RATE . ESTIMATED GFR I S NOT APPLICABLE FOR DIALYSIS PATIENTS. ELIANA (test code = ELIANA) Marketing Operations Analyst ID - EDASI Lab Interpretation Abnormal (test code = 53931-3) [facility] [id number] 06:38:00 Test Item Value Reference Range Interpretation Comments Bilirubin, Direct (test 0.2 mg/dL 0.1-0.5 code = 1968-01) ELIANA (test code = ELIANA) Marketing Operations Analyst ID - EDASI Lab Interpretation (test Normal code = 17865-5) [facility] [id number] 06:38:00 Test Item Value Reference Range Interpretation [...] (test code = 7.8 mg/dL 8.4-10.2 L 97596-3) EGFR (test code = 39 mL/min/1.73 [place] [address]-5) NOT ACCURATE CREATININE CLEARANCE IN PREDICTING GLOMERULAR FILTRATION RATE . ESTIMATED GFR I S NOT APPLICABLE FOR DIALYSIS PATIENTS. ELIANA (test code = ELIANA) Marketing Operations Analyst ID - EDASI Lab Interpretation Abnormal (test code = 40879-8) [facility], [id number] 06:38:00 Test Item Value Reference Range Interpretation Comments Bilirubin, Direct (test 0.2 mg/dL 0.1-0.5 code = 1968-) ELIANA (test code = ELIANA) Marketing Operations Analyst ID - EDASI Lab Interpretation (test Normal code = 27985-3) [facility] [id number] 06:38:00 Test Item Value Reference Range Interpretation [...] (test code = 7.8 mg/dL 8.4-10.2 L 61355-6) EGFR (test code = 39 mL/min/1.73 sq m [facility] [address]-5) NOT ACCURATE CREATININE CLEARANCE IN PREDICTING GLOMERULAR FILTRATION RATE . ESTIMATED GFR I S NOT APPLICABLE FOR DIALYSIS PATIENTS. ELIANA (test code = ELIANA) Marketing Operations Analyst ID - EDASI Lab Interpretation Abnormal (test code = 63809-5) [facility], [id number] 06:38:00 Test Item Value Reference Range Interpretation Comments Bilirubin, Direct (test 0.2 mg/dL 0.1-0.5 code = 1968-) ELIANA (test code = ELIANA) Marketing Operations Analyst ID - EDASI Lab Interpretation (test Normal code = 69634-5) [facility] [id number] 06:38:00 Test Item Value Reference Range Interpretation [...] (test code = 7.8 mg/dL 8.4-10.2 L 33162-4) EGFR (test code = 39 mL/min/1.73 [place] [address]-8) NOT ACCURATE CREATININE CLEARANCE IN PREDICTING GLOMERULAR FILTRATION RATE . ESTIMATED GFR I S NOT APPLICABLE FOR DIALYSIS PATIENTS. ELIANA (test code = ELIANA) Marketing Operations Analyst ID - EDASI Lab Interpretation Abnormal (test code = 71004-0) [facility], [id number] 06:38:00 Test Item Value Reference Range Interpretation Comments Bilirubin, Direct (test 0.2 mg/dL 0.1-0.5 code = 1967-7) ELIANA (test code = ELIANA) Marketing Operations Analyst ID - EDASI Lab Interpretation (test Normal code = 98006-5) [facility]BILIRUBIN, [id number] 06:38:00 Test Item Value Reference Range Interpretation Comments BILIRUBIN DIRECT (BEAKER) (test 0.2 mg/dL 0.1-0.5 code = 706) Marketing Operations Analyst ID - EDASIBASIC METABOLIC [id number] 06:38:00 Test Item Value Reference Range Interpretation [...] S NOT APPLICABLE FOR DIALYSIS PATIEN TS. Marketing Operations Analyst ID - EDASIHepatitis B surface [id number] 06:14:00 Test Item Value Reference Range Interpretation Comments Hep B S Ab (test code <8.0 See_Comment [Auto mated = 65057-9) message] The system which generated this result transmit altagracia reference range : <8.0 mIU/mL. Th e reference range was not used to interpret this result as normal/abnormal . ELIANA (test code = ELIANA) Marketing Operations Analyst ID - DB Lab Interpretation Normal (test code = 76341-6) [facility] B surface [id number] 06:14:00 Test Item Value Reference Range Interpretation Comments Hep B S Ab (test code <8.0 See_Comment [Auto mated = 38620-5) message] The system which generated this result transmit altagracia reference range : <8.0 mIU/mL. Th e reference range was not used to interpret this result as normal/abnormal . ELIANA (test code = ELIANA) Marketing Operations Analyst ID - DB Lab Interpretation Normal (test code = 92282-0) [facility] B surface [id number] 06:14:00 Test Item Value Reference Range Interpretation Comments Hep B S Ab (test code <8.0 See_Comment [Auto mated = 53482-9) message] The system which generated this result transmit altagracia reference range : <8.0 mIU/mL. Th e reference range was not used to interpret this result as normal/abnormal . ELIANA (test code = ELIANA) Marketing Operations Analyst ID - DB Lab Interpretation Normal (test code = 86380-3) [facility] B surface [id number] 06:14:00 Test Item Value Reference Range Interpretation Comments Hep B S Ab (test code <8.0 See_Comment [Auto mated = 90995-2) message] The system which generated this result transmit altagracia reference range : <8.0 mIU/mL. Th e reference range was not used to interpret this result as normal/abnormal . ELIANA (test code = ELIANA) Marketing Operations Analyst ID - DB Lab Interpretation Normal (test code = 35703-8) [facility] [id number] 06:14:00 Test Item Value Reference Range Interpretation Comments Hep B S Ab (test code <8.0 See_Comment [Auto mated = 93085-1) message] The system which generated this result transmit altagracia reference range : <8.0 mIU/mL. Th e reference range was not used to interpret this result as normal/abnormal . ELIANA (test code = ELIANA) Marketing Operations Analyst ID - DB Lab Interpretation Normal (test code = 16543-8) [facility]Hep[facility] surface [id number] 06:14:00 Test Item Value Reference Range Interpretation Comments Hep B S Ab (test code <8.0 See_Comment [Auto mated = 22874-9) message] The system which generated this result transmit altagracia reference range : <8.0 mIU/mL. Th e reference range was not used to interpret this result as normal/abnormal . ELIANA (test code = ELIANA) Marketing Operations Analyst ID - DB Lab Interpretation Normal (test code = 61752-4) [facility]EREATIS B SURFACE [id number] 06:14:00 Test Item Value Reference Range Interpretation Comments HEPATITIS B SURFACE ANTIBODY < mIU/mL <8.0 (BEAKER) (test code = 647) Marketing Operations Analyst ID - DBHepatitis B surface [id number] 06:13:00 Test Item Value Reference Range Interpretation Comments HBsAg Screen (test code Nonreactive Nonreactive = 5195-3) ELIANA (test code = ELIANA) Specimen is considered negative for HBsAg. Lab Interpretation (test Normal code = 74746-7) [facility] fetoprotein (AFP), tumor [id number] 06:13:00 Test Item Value Reference Range Interpretation Comments Alpha-Fetoprotein (test code 2.1 ng/mL <10.0 = 1834-1) ELIANA (test code = ELIANA) Marketing Operations Analyst ID - DB Lab Interpretation (test Normal code = 03508-4) [facility] surface [id number] 06:13:00 Test Item Value Reference Range Interpretation Comments HBsAg Screen (test code Nonreactive Nonreactive = 5195-3) ELIANA (test code = ELIANA) Specimen is considered negative for HBsAg. Lab Interpretation (test Normal code = 64317-1) [facility] fetoprotein (AFP), tumor [id number] 06:13:00 Test Item Value Reference Range Interpretation Comments Alpha-Fetoprotein (test code 2.1 ng/mL <10.0 = 1834-1) ELIANA (test code = ELIANA) Marketing Operations Analyst ID - DB Lab Interpretation (test Normal code = 26506-0) [facility] HospitalHep[facility] surface [id number] 06:13:00 Test Item Value Reference Range Interpretation Comments HBsAg Screen (test code Nonreactive Nonreactive = 5195-3) ELIANA (test code = ELIANA) Specimen is considered negative for HBsAg. Lab Interpretation (test Normal code = 33715-8) [facility] HospitalAlpha fetoprotein (AFP), tumor [id number] 06:13:00 Test Item Value Reference Range Interpretation Comments Alpha-Fetoprotein (test code 2.1 ng/mL <10.0 = 1834-1) ELIANA (test code = ELIANA) Marketing Operations Analyst ID - DB Lab Interpretation (test Normal code = 76433-4) [facility] HospitalHep[facility] surface [id number] 06:13:00 Test Item Value Reference Range Interpretation Comments HBsAg Screen (test code Nonreactive Nonreactive = 5195-3) ELIANA (test code = ELIANA) Specimen is considered negative for HBsAg. Lab Interpretation (test Normal code = 18157-5) [facility]Alpha fetoprotein (AFP), tumor [id number] 06:13:00 Test Item Value Reference Range Interpretation Comments Alpha-Fetoprotein (test code 2.1 ng/mL <10.0 = 1834-1) ELIANA (test code = ELIANA) Marketing Operations Analyst ID - DB Lab Interpretation (test Normal code = 14477-2) [facility] HospitalHep[facility] surface [id number] 06:13:00 Test Item Value Reference Range Interpretation Comments HBsAg Screen (test code Nonreactive Nonreactive = 5195-3) ELIANA (test code = ELIANA) Specimen is considered negative for HBsAg. Lab Interpretation (test Normal code = 84916-3) [facility]Alpha fetoprotein (AFP), tumor [id number] 06:13:00 Test Item Value Reference Range Interpretation Comments Alpha-Fetoprotein (test code 2.1 ng/mL <10.0 = 1834-1) ELIANA (test code = ELIANA) Marketing Operations Analyst ID - DB Lab Interpretation (test Normal code = 99006-6) [facility] surface [id number] 06:13:00 Test Item Value Reference Range Interpretation Comments HBsAg Screen (test code Nonreactive Nonreactive = 5195-3) ELIANA (test code = ELIANA) Specimen is considered negative for HBsAg. Lab Interpretation (test Normal code = 64447-9) [facility] HospitalAlpha fetoprotein (AFP), tumor [id number] 06:13:00 Test Item Value Reference Range Interpretation Comments Alpha-Fetoprotein (test code 2.1 ng/mL <10.0 = 1834-1) ELIANA (test code = ELIANA) Marketing Operations Analyst ID - DB Lab Interpretation (test Normal code = 62374-8) [facility] HospitalHEPATITIS B SURFACE [id number] 06:13:00 Test Item Value Reference Range Interpretation Comments HEPATITIS B SURFACE ANTIGEN (2) Nonreactive Nonreactive (BEAKER) (test code = 2585) Specimen is considered negative for HBsAg.ALPHA FETOPROTEIN (AFP), TUMOR MARKER 2020-10-03 06:13:00 Test Item Value Reference Range Interpretation Comments ALPHA-FETOPROTEIN (BEAKER) (test 2.1 ng/mL <10.0 code = 1094) Marketing Operations Analyst ID - DBProthrombin time/[id number] 05:06:00 Test Item Value Reference Interpretation Comments Range Protime (test code = 14.4 See_Comment H [Autom ated 6662-2) message] The system which generated this result transmitted reference range : 11.9 - 14.2 seconds. The reference range was not used to interpret this result as normal/abnormal . INR (test code = 1.16 See_Comment [Automated 8841-6) message] The system which generated this result [...] valves. Lab Interpretation Abnormal (test code = 15806-5) [facility] HospitalProthrombin time/[id number] 05:06:00 Test Item Value Reference Interpretation Comments [...] valves. Lab Interpretation Abnormal (test code = 51788-9) [facility] HospitalProthrombin time/[id number] 05:06:00 Test Item Value Reference Interpretation Comments [...] valves. Lab Interpretation Abnormal (test code = 15039-2) [facility] HospitalProthrombin time/[id number] 05:06:00 Test Item Value Reference Interpretation Comments [...] valves. Lab Interpretation Abnormal (test code = 78815-0) [facility] HospitalProthrombin time/[id number] 05:06:00 Test Item Value Reference Interpretation Comments [...] valves. Lab Interpretation Abnormal (test code = 33117-0) [facility] HospitalProthrombin time/[id number] 05:06:00 Test Item Value Reference Interpretation Comments [...] valves. Lab Interpretation Abnormal (test code = 18723-2) [facility] HospitalPROTHROMBIN TIME/[id number] 05:06:00 Test Item Value Reference Range Interpretation Comments PROTIME (BEAKER) 14.4 seconds 11.9-14.2 H (test code = 759) INR (BEAKER) (test 1.16 See_Comment [Automat ed message] code = 370) The system [employer] h generated this result transmitted ref erence range: [...] 8.8 See_Comment [A utomated message] The system [employer] generated this result transmitted ref erence range: 3.5 - 10 .5 K/L. The refe rence range was not u sed to interpret this result as normal/abnor mal. RBC (test code = 789-8) 2.56 See_Comment L [Au tomated message] The system [employer] generated this result transmitted ref erence range: 4.63 - 6 .08 M/L. The refe rence range was not u sed to interpret this result as normal/abnor mal. MCHC (test code = 786-4) 31.8 See_Comment L [A utomated message] The system [employer] generated this result transmitted ref erence range: [...] See_Comment [Aut omated message] 777-3) The system [employer] generated this result transmitted ref erence range: 150 - 45 0 K/CU MM. The referen ce range was not u sed to interpret this result as normal/abnor mal. MPV (test code = 10.2 fL 9.4-12.4 07646-6) nRBC (test code = 413) 0 See_Comment [Aut omated message] The system [employer] generated this result transmitted ref erence range: 0 - 0 /1 00 WBC. The refere nce range was not u sed to interpret this result as normal/abnor mal. Lab Interpretation (test Abnormal code = 74847-2) [facility] with platelet count + automated [id number] 04:58:00 Test Item Value Reference Range Interpretation Comments WBC (test code = 6690-2) 8.8 See_Comment [A utomated message] The system [employer] generated this result transmitted ref erence range: 3.5 - 10 .5 K/L. The refe rence range was not u sed to interpret this result as normal/abnor mal. RBC (test code = 789-8) 2.56 See_Comment L [Au tomated message] The system [employer] generated this result transmitted ref erence range: 4.63 - 6 .08 M/L. The refe rence range was not u sed to interpret this result as normal/abnor mal. MCHC (test code = 786-4) 31.8 See_Comment L [A utomated message] The system [employer] generated this result transmitted ref erence range: [...] See_Comment [Aut omated message] 777-3) The system [employer] generated this result transmitted ref erence range: 150 - 45 0 K/CU MM. The referen ce range was not u sed to interpret this result as normal/abnor mal. MPV (test code = 10.2 fL 9.4-12.4 43192-2) nRBC (test code = 413) 0 See_Comment [Aut omated message] The system [employer] generated this result transmitted ref erence range: [...] H [Aut omated message] 670) The system [employer] generated this result transmitted ref erence range: 1.78 - 5 .38 K/L. The refe rence range was not u sed to interpret this result as normal/abnor mal. # Lymphs (test code = 0.86 See_Comment L [Auto mated message] 414) The system [employer] generated this result transmitted ref erence range: 1.32 - 3 .57 K/L. The refe rence range was not u sed to interpret this result as normal/abnor mal. # Monos (test code = 0.72 See_Comment [Autom ated message] 415) The system [employer] generated this result transmitted ref erence range: 0.30 - 0 .82 K/L. The refe rence range was not u sed to interpret this result as normal/abnor mal. # Eos (test code = 416) 0.12 See_Comment [Au tomated message] The system [employer] generated this result transmitted ref erence range: 0.04 - 0 .54 K/L. The refe rence range was not u sed to interpret this result as normal/abnor mal. # Baso (test code = 417) 0.02 See_Comment [A utomated message] The system [employer] generated this result transmitted ref erence range: 0.01 - 0 .08 K/L. The refe rence range was not u sed to interpret this result as normal/abnor mal. Immature 1 % 0-1 Granulocytes-Relative (test code = 2801) Lab Interpretation (test Abnormal code = 63280-6) [facility] (Hemogram only)2020-10-03 04:58:00 Test Item Value Reference Range Interpretation Comments WBC (test code = 6690-2) 8.8 See_Comment [A utomated message] The system [employer] generated this result transmitted ref erence range: 3.5 - 10 .5 K/L. The refe rence range was not u sed to interpret this result as normal/abnor mal. RBC (test code = 789-8) 2.56 See_Comment L [Au tomated message] The system [employer] generated this result transmitted ref erence range: 4.63 - 6 .08 M/L. The refe rence range was not u sed to interpret this result as normal/abnor mal. MCHC (test code = 786-4) 31.8 See_Comment L [A utomated message] The system [employer] generated this result transmitted ref erence range: [...] See_Comment [Aut omated message] 777-3) The system [employer] generated this result transmitted ref erence range: 150 - 45 0 K/CU MM. The referen ce range was not u sed to interpret this result as normal/abnor mal. MPV (test code = 10.2 fL 9.4-12.4 25533-5) nRBC (test code = 413) 0 See_Comment [Aut omated message] The system [employer] generated this result transmitted ref erence range: 0 - 0 /1 00 WBC. The refere nce range was not u sed to interpret this result as normal/abnor mal. Lab Interpretation (test Abnormal code = 85819-1) [facility] with platelet count + automated [id number] 04:58:00 Test Item Value Reference Range Interpretation Comments WBC (test code = 6690-2) 8.8 See_Comment [A utomated message] The system [employer] generated this result transmitted ref erence range: 3.5 - 10 .5 K/L. The refe rence range was not u sed to interpret this result as normal/abnor mal. RBC (test code = 789-8) 2.56 See_Comment L [Au tomated message] The system [employer] generated this result transmitted ref erence range: 4.63 - 6 .08 M/L. The refe rence range was not u sed to interpret this result as normal/abnor mal. MCHC (test code = 786-4) 31.8 See_Comment L [A utomated message] The system [employer] generated this result transmitted ref erence range: [...] See_Comment [Aut omated message] 777-3) The system [employer] generated this result transmitted ref erence range: 150 - 45 0 K/CU MM. The referen ce range was not u sed to interpret this result as normal/abnor mal. MPV (test code = 10.2 fL 9.4-12.4 26361-6) nRBC (test code = 413) 0 See_Comment [Aut omated message] The system [employer] generated this result transmitted ref erence range: [...] H [Aut omated message] 670) The system [employer] generated this result transmitted ref erence range: 1.78 - 5 .38 K/L. The refe rence range was not u sed to interpret this result as normal/abnor mal. # Lymphs (test code = 0.86 See_Comment L [Auto mated message] 414) The system [employer] generated this result transmitted ref erence range: 1.32 - 3 .57 K/L. The refe rence range was not u sed to interpret this result as normal/abnor mal. # Monos (test code = 0.72 See_Comment [Autom ated message] 415) The system [employer] generated this result transmitted ref erence range: 0.30 - 0 .82 K/L. The refe rence range was not u sed to interpret this result as normal/abnor mal. # Eos (test code = 416) 0.12 See_Comment [Au tomated message] The system [employer] generated this result transmitted ref erence range: 0.04 - 0 .54 K/L. The refe rence range was not u sed to interpret this result as normal/abnor mal. # Baso (test code = 417) 0.02 See_Comment [A utomated message] The system [employer] generated this result transmitted ref erence range: 0.01 - 0 .08 K/L. The refe rence range was not u sed to interpret this result as normal/abnor mal. Immature 1 % 0-1 Granulocytes-Relative (test code = 2801) Lab Interpretation (test Abnormal code = 68930-2) [facility] 04:58:00 Test Item Value Reference Range Interpretation Comments WBC (test code = 6690-2) 8.8 See_Comment [A utomated message] The system [employer] generated this result transmitted ref erence range: 3.5 - 10 .5 K/L. The refe rence range was not u sed to interpret this result as normal/abnor mal. RBC (test code = 789-8) 2.56 See_Comment L [Au tomated message] The system [employer] generated this result transmitted ref erence range: 4.63 - 6 .08 M/L. The refe rence range was not u sed to interpret this result as normal/abnor mal. MCHC (test code = 786-4) 31.8 See_Comment L [A utomated message] The system [employer] generated this result transmitted ref erence range: [...] See_Comment [Aut omated message] 777-3) The system [employer] generated this result transmitted ref erence range: 150 - 45 0 K/CU MM. The referen ce range was not u sed to interpret this result as normal/abnor mal. MPV (test code = 10.2 fL 9.4-12.4 73152-3) nRBC (test code = 413) 0 See_Comment [Aut omated message] The system [employer] generated this result transmitted ref erence range: 0 - 0 /1 00 WBC. The refere nce range was not u sed to interpret this result as normal/abnor mal. Lab Interpretation (test Abnormal code = 43883-7) [facility] with platelet count + automated [id number] 04:58:00 Test Item Value Reference Range Interpretation Comments WBC (test code = 6690-2) 8.8 See_Comment [A utomated message] The system [employer] generated this result transmitted ref erence range: 3.5 - 10 .5 K/L. The refe rence range was not u sed to interpret this result as normal/abnor mal. RBC (test code = 789-8) 2.56 See_Comment L [Au tomated message] The system [employer] generated this result transmitted ref erence range: 4.63 - 6 .08 M/L. The refe rence range was not u sed to interpret this result as normal/abnor mal. MCHC (test code = 786-4) 31.8 See_Comment L [A utomated message] The system [employer] generated this result transmitted ref erence range: [...] See_Comment [Aut omated message] 777-3) The system [employer] generated this result transmitted ref erence range: 150 - 45 0 K/CU MM. The referen ce range was not u sed to interpret this result as normal/abnor mal. MPV (test code = 10.2 fL 9.4-12.4 00135-4) nRBC (test code = 413) 0 See_Comment [Aut omated message] The system [employer] generated this result transmitted ref erence range: [...] H [Aut omated message] 670) The system [employer] generated this result transmitted ref erence range: 1.78 - 5 .38 K/L. The refe rence range was not u sed to interpret this result as normal/abnor mal. # Lymphs (test code = 0.86 See_Comment L [Auto mated message] 414) The system [employer] generated this result transmitted ref erence range: 1.32 - 3 .57 K/L. The refe rence range was not u sed to interpret this result as normal/abnor mal. # Monos (test code = 0.72 See_Comment [Autom ated message] 415) The system [employer] generated this result transmitted ref erence range: 0.30 - 0 .82 K/L. The refe rence range was not u sed to interpret this result as normal/abnor mal. # Eos (test code = 416) 0.12 See_Comment [Au tomated message] The system [employer] generated this result transmitted ref erence range: 0.04 - 0 .54 K/L. The refe rence range was not u sed to interpret this result as normal/abnor mal. # Baso (test code = 417) 0.02 See_Comment [A utomated message] The system [employer] generated this result transmitted ref erence range: 0.01 - 0 .08 K/L. The refe rence range was not u sed to interpret this result as normal/abnor mal. Immature 1 % 0-1 Granulocytes-Relative (test code = 2801) Lab Interpretation (test Abnormal code = 26017-9) [facility] (Hemogram only)2020-10-03 04:58:00 Test Item Value Reference Range Interpretation Comments WBC (test code = 6690-2) 8.8 See_Comment [A utomated message] The system [employer] generated this result transmitted ref erence range: 3.5 - 10 .5 K/L. The refe rence range was not u sed to interpret this result as normal/abnor mal. RBC (test code = 789-8) 2.56 See_Comment L [Au tomated message] The system [employer] generated this result transmitted ref erence range: 4.63 - 6 .08 M/L. The refe rence range was not u sed to interpret this result as normal/abnor mal. MCHC (test code = 786-4) 31.8 See_Comment L [A utomated message] The system [employer] generated this result transmitted ref erence range: [...] code = 172 See_Comment [Aut omated message] 397-3) The system [employer] generated this result transmitted ref erence range: 150 - 45 0 K/CU MM. The referen ce range was not u sed to interpret this result as normal/abnor mal. MPV (test code = 10.2 fL 9.4-12.4 17939-4) nRBC (test code = 413) 0 See_Comment [Aut omated message] The system [employer] generated this result transmitted ref erence range: 0 - 0 /1 00 WBC. The refere nce range was not u sed to interpret this result as normal/abnor mal. Lab Interpretation (test Abnormal code = 28275-6) [facility] with platelet count + automated [id number] 04:58:00 Test Item Value Reference Range Interpretation Comments WBC (test code = 6690-2) 8.8 See_Comment [A utomated message] The system [employer] generated this result transmitted ref erence range: 3.5 - 10 .5 K/L. The refe rence range was not u sed to interpret this result as normal/abnor mal. RBC (test code = 789-8) 2.56 See_Comment L [Au tomated message] The system [employer] generated this result transmitted ref erence range: 4.63 - 6 .08 M/L. The refe rence range was not u sed to interpret this result as normal/abnor mal. MCHC (test code = 786-4) 31.8 See_Comment L [A utomated message] The system [employer] generated this result transmitted ref erence range: [...] See_Comment [Aut omated message] 777-3) The system [employer] generated this result transmitted ref erence range: 150 - 45 0 K/CU MM. The referen ce range was not u sed to interpret this result as normal/abnor mal. MPV (test code = 10.2 fL 9.4-12.4 82087-1) nRBC (test code = 413) 0 See_Comment [Aut omated message] The system [employer] generated this result transmitted ref erence range: [...] H [Aut omated message] 670) The system [employer] generated this result transmitted ref erence range: 1.78 - 5 .38 K/L. The refe rence range was not u sed to interpret this result as normal/abnor mal. # Lymphs (test code = 0.86 See_Comment L [Auto mated message] 414) The system [employer] generated this result transmitted ref erence range: 1.32 - 3 .57 K/L. The refe rence range was not u sed to interpret this result as normal/abnor mal. # Monos (test code = 0.72 See_Comment [Autom ated message] 415) The system [employer] generated this result transmitted ref erence range: 0.30 - 0 .82 K/L. The refe rence range was not u sed to interpret this result as normal/abnor mal. # Eos (test code = 416) 0.12 See_Comment [Au tomated message] The system [employer] generated this result transmitted ref erence range: 0.04 - 0 .54 K/L. The refe rence range was not u sed to interpret this result as normal/abnor mal. # Baso (test code = 417) 0.02 See_Comment [A utomated message] The system [employer] generated this result transmitted ref erence range: 0.01 - 0 .08 K/L. The refe rence range was not u sed to interpret this result as normal/abnor mal. Immature 1 % 0-1 Granulocytes-Relative (test code = 2801) Lab Interpretation (test Abnormal code = 23714-6) [facility] (Hemogram only)2020-10-03 04:58:00 Test Item Value Reference Range Interpretation Comments WBC (test code = 6690-2) 8.8 See_Comment [A utomated message] The system [employer] generated this result transmitted ref erence range: 3.5 - 10 .5 K/L. The refe rence range was not u sed to interpret this result as normal/abnor mal. RBC (test code = 789-8) 2.56 See_Comment L [Au tomated message] The system [employer] generated this result transmitted ref erence range: 4.63 - 6 .08 M/L. The refe rence range was not u sed to interpret this result as normal/abnor mal. MCHC (test code = 786-4) 31.8 See_Comment L [A utomated message] The system [employer] generated this result transmitted ref erence range: [...] See_Comment [Aut omated message] 777-3) The system [employer] generated this result transmitted ref erence range: 150 - 45 0 K/CU MM. The referen ce range was not u sed to interpret this result as normal/abnor mal. MPV (test code = 10.2 fL 9.4-12.4 35009-9) nRBC (test code = 413) 0 See_Comment [Aut omated message] The system [employer] generated this result transmitted ref erence range: 0 - 0 /1 00 WBC. The refere nce range was not u sed to interpret this result as normal/abnor mal. Lab Interpretation (test Abnormal code = 77986-2) [facility] with platelet count + automated [id number] 04:58:00 Test Item Value Reference Range Interpretation Comments WBC (test code = 6690-2) 8.8 See_Comment [A utomated message] The system [employer] generated this result transmitted ref erence range: 3.5 - 10 .5 K/L. The refe rence range was not u sed to interpret this result as normal/abnor mal. RBC (test code = 789-8) 2.56 See_Comment L [Au tomated message] The system [employer] generated this result transmitted ref erence range: 4.63 - 6 .08 M/L. The refe rence range was not u sed to interpret this result as normal/abnor mal. MCHC (test code = 786-4) 31.8 See_Comment L [A utomated message] The system [employer] generated this result transmitted ref erence range: [...] See_Comment [Aut omated message] 777-3) The system [employer] generated this result transmitted ref erence range: 150 - 45 0 K/CU MM. The referen ce range was not u sed to interpret this result as normal/abnor mal. MPV (test code = 10.2 fL 9.4-12.4 75565-2) nRBC (test code = 413) 0 See_Comment [Aut omated message] The system [employer] generated this result transmitted ref erence range: [...] H [Aut omated message] 670) The system [employer] generated this result transmitted ref erence range: 1.78 - 5 .38 K/L. The refe rence range was not u sed to interpret this result as normal/abnor mal. # Lymphs (test code = 0.86 See_Comment L [Auto mated message] 414) The system [employer] generated this result transmitted ref erence range: 1.32 - 3 .57 K/L. The refe rence range was not u sed to interpret this result as normal/abnor mal. # Monos (test code = 0.72 See_Comment [Autom ated message] 415) The system [employer] generated this result transmitted ref erence range: 0.30 - 0 .82 K/L. The refe rence range was not u sed to interpret this result as normal/abnor mal. # Eos (test code = 416) 0.12 See_Comment [Au tomated message] The system [employer] generated this result transmitted ref erence range: 0.04 - 0 .54 K/L. The refe rence range was not u sed to interpret this result as normal/abnor mal. # Baso (test code = 417) 0.02 See_Comment [A utomated message] The system [employer] generated this result transmitted ref erence range: 0.01 - 0 .08 K/L. The refe rence range was not u sed to interpret this result as normal/abnor mal. Immature 1 % 0-1 Granulocytes-Relative (test code = 2801) Lab Interpretation (test Abnormal code = 97488-4) [facility] (Hemogram only)2020-10-03 04:58:00 Test Item Value Reference Range Interpretation Comments WBC (test code = 6690-2) 8.8 See_Comment [A utomated message] The system [employer] generated this result transmitted ref erence range: 3.5 - 10 .5 K/L. The refe rence range was not u sed to interpret this result as normal/abnor mal. RBC (test code = 789-8) 2.56 See_Comment L [Au tomated message] The system [employer] generated this result transmitted ref erence range: 4.63 - 6 .08 M/L. The refe rence range was not u sed to interpret this result as normal/abnor mal. MCHC (test code = 786-4) 31.8 See_Comment L [A utomated message] The system [employer] generated this result transmitted ref erence range: [...] See_Comment [Aut omated message] 777-3) The system [employer] generated this result transmitted ref erence range: 150 - 45 0 K/CU MM. The referen ce range was not u sed to interpret this result as normal/abnor mal. MPV (test code = 10.2 fL 9.4-12.4 19248-4) nRBC (test code = 413) 0 See_Comment [Aut omated message] The system [employer] generated this result transmitted ref erence range: 0 - 0 /1 00 WBC. The refere nce range was not u sed to interpret this result as normal/abnor mal. Lab Interpretation (test Abnormal code = 43725-3) [facility] with platelet count + automated [id number] 04:58:00 Test Item Value Reference Range Interpretation Comments WBC (test code = 6690-2) 8.8 See_Comment [A utomated message] The system [employer] generated this result transmitted ref erence range: 3.5 - 10 .5 K/L. The refe rence range was not u sed to interpret this result as normal/abnor mal. RBC (test code = 789-8) 2.56 See_Comment L [Au tomated message] The system [employer] generated this result transmitted ref erence range: 4.63 - 6 .08 M/L. The refe rence range was not u sed to interpret this result as normal/abnor mal. MCHC (test code = 786-4) 31.8 See_Comment L [A utomated message] The system [employer] generated this result transmitted ref erence range: [...] See_Comment [Aut omated message] 777-3) The system [employer] generated this result transmitted ref erence range: 150 - 45 0 K/CU MM. The referen ce range was not u sed to interpret this result as normal/abnor mal. MPV (test code = 10.2 fL 9.4-12.4 07621-6) nRBC (test code = 413) 0 See_Comment [Aut omated message] The system [employer] generated this result transmitted ref erence range: [...] H [Aut omated message] 670) The system [employer] generated this result transmitted ref erence range: 1.78 - 5 .38 K/L. The refe rence range was not u sed to interpret this result as normal/abnor mal. # Lymphs (test code = 0.86 See_Comment L [Auto mated message] 414) The system [employer] generated this result transmitted ref erence range: 1.32 - 3 .57 K/L. The refe rence range was not u sed to interpret this result as normal/abnor mal. # Monos (test code = 0.72 See_Comment [Autom ated message] 415) The system [employer] generated this result transmitted ref erence range: 0.30 - 0 .82 K/L. The refe rence range was not u sed to interpret this result as normal/abnor mal. # Eos (test code = 416) 0.12 See_Comment [Au tomated message] The system [employer] generated this result transmitted ref erence range: 0.04 - 0 .54 K/L. The refe rence range was not u sed to interpret this result as normal/abnor mal. # Baso (test code = 417) 0.02 See_Comment [A utomated message] The system [employer] generated this result transmitted ref erence range: 0.01 - 0 .08 K/L. The refe rence range was not u sed to interpret this result as normal/abnor mal. Immature 1 % 0-1 Granulocytes-Relative (test code = 2801) Lab Interpretation (test Abnormal code = 35619-6) [facility] W/PLT COUNT & AUTO [id number] 04:58:00 Test Item Value Reference Range Interpretation [...] 0-0 (BEAKER) (test code = 413) POCT-GLUCOSE [id number] 21:32:00 Test Item Value Reference Range Interpretation Comments POC-GLUCOSE METER 128 mg/dL 70-110 H : TESTED A T [facility] (BEAKER) (test code = [place], 1538) [address]: Marketing Operations Analyst/Techni min ID = [id number] for Lien Mansfield Vancomycin level, [id number] 18:09:00 Test Item Value Reference Range Interpretation Comments Vancomycin Tr (test code 6.3 ug/mL 10-20 L = 4092-3) ELIANA (test code = ELIANA) Marketing Operations Analyst ID - DBIf vancomycin trough level > 20 mcg/mL, hold next vancomycin dose, and contact MD and pharmacist. Lab Interpretation (test Abnormal code = 34965-2) [facility] [id number] 18:09:00 Test Item Value Reference Range Interpretation Comments Vancomycin Tr (test code 6.3 ug/mL 10-20 L = 4092-3) ELIANA (test code = ELIANA) Marketing Operations Analyst ID - DBIf vancomycin trough level > 20 mcg/mL, hold next vancomycin dose, and contact MD and pharmacist. Lab Interpretation (test Abnormal code = 99098-7) [facility] [id number] 18:09:00 Test Item Value Reference Range Interpretation Comments Vancomycin Tr (test code 6.3 ug/mL 10-20 L = 4092-3) ELIANA (test code = ELIANA) Marketing Operations Analyst ID - DBIf vancomycin trough level > 20 mcg/mL, hold next vancomycin dose, and contact MD and pharmacist. Lab Interpretation (test Abnormal code = 36028-6) [facility] [id number] 18:09:00 Test Item Value Reference Range Interpretation Comments Vancomycin Tr (test code 6.3 ug/mL 10-20 L = 4092-3) ELIANA (test code = ELIANA) Marketing Operations Analyst ID - DBIf vancomycin trough level > 20 mcg/mL, hold next vancomycin dose, and contact MD and pharmacist. Lab Interpretation (test Abnormal code = 75221-8) [facility] [id number] 18:09:00 Test Item Value Reference Range Interpretation Comments Vancomycin Tr (test code 6.3 ug/mL 10-20 L = 4092-3) ELIANA (test code = ELIANA) Marketing Operations Analyst ID - DBIf vancomycin trough level > 20 mcg/mL, hold next vancomycin dose, and contact MD and pharmacist. Lab Interpretation (test Abnormal code = 30402-1) [facility] [id number] 18:09:00 Test Item Value Reference Range Interpretation Comments Vancomycin Tr (test code 6.3 ug/mL 10-20 L = 4092-3) ELIANA (test code = ELIANA) Marketing Operations Analyst ID - DBIf vancomycin trough level > 20 mcg/mL, hold next vancomycin dose, and contact MD and pharmacist. Lab Interpretation (test Abnormal code = 35032-6) [facility] [id number] 18:09:00 Test Item Value Reference Range Interpretation Comments VANCOMYCIN TROUGH (BEAKER) (test 6.3 ug/mL 10.0-20.0 L code = 522) Marketing Operations Analyst ID - DBIf vancomycin trough level > [...] PERCENT (BEAKER) (test code = 2801) POCT-GLUCOSE [id number] 17:36:00 Test Item Value Reference Range Interpretation Comments POC-GLUCOSE METER 124 mg/dL 70-110 H : TESTED A T [facility] (BEAKER) (test code = [place], 1538) [address]: Marketing Operations Analyst/Techni min ID = [id number] for Jaswinder [facility] [employer] [id number] 14:24:00 Test Item Value Reference Range Interpretation Comments Case Report (test code Surgical Pathology = 104) Report Case: [id number] Authorizing Provider: Sarkis Laboy, Collected: 10/01/2020 09:43 AM Ordering Location: [address] Received: 10/01/2020 01:48 PM Pathologist: Pa Peters MD Specimens: A) - Biopsy, Gastric, random biopsy B) - Gastric, gastric erythema biopsy DIAGNOSIS (test code = m3oonFQhUCOuw3maZBInyG 3220) FuZzEwMzNcZnRuYmpcdWMx IHtccnRmMVxlcGljOTIwMl azaaRaPVItmTCjS3Vnoqai PEogOF0eWM0cbBsktLLitQ LcALAqUfUld0igj685vXQk e6ivMDQIrwqemSl6aExyV8 5wp5I4NruyF08heUVvOUta bGFpblxmczIwIEEuIFNUT0 8OR5mfHGYVCfLWQLWGPhCR N9RJSYcBRW0ZC66KUZjeDn pFSLCCYDR1PNIhjip9JDVh HEYZAlDQROwhNAWQS5GTTY dJVEggTUlMRCBDSFJPTklD SRyXSGRICVQNOIzRC1MKGB ZGVyNNXyRoTy0ZOYygTE2D FGBGXR0GNSMBAVWIEHhJC2 iTGKFoiqe3VKTyDUHXWLaS BImJCM9QU01ZRDUPTOCJPA 9BMMGlM8wKT61PPtSHJwEU VElWRSBHQVNUUklUSVMgV0 nCCSNTE8INDKESP3ZQZdzI BKruJDRtdMIoXK9rH7QDFR jCMtMKFCLGCrumT4QOCD1g HbNDIRHCJzOwAd0JQZmjKW POQS4TKSCNUVoOAI1FI2RJ MEGRT0egXISrwSEbAB1aTs QWSIFCKsHnYt5DSNGEA7PX ZSWWETMPKqSMAAHNCI3IYT KjmWTeZZVrweBQMkTXDM6N QUNILCBFUllUSEVNQSwgRU 6YZ0XWP5HRHlFGNYZOU5DS BTFYG5CHENUOHxibUKAubO DwYQ3pW5pEUcNGZmTOPJOZ X5LpP5yMWHFXBKlIDWIFUe 5UEZApWP3HK6ZANdCnC6KE VFJJVElTIEFORCBWRVJZIE DWH3ZLTKAIUPiCLYWYIOZh ciAgICAgICAgICAgICAgLS MGYF1CVdFmCYNVDYKQNIEU M18QKDMWHZ7ZKMPSCHGMWV JUTFkgREVOVURFRCBXUElU FLZHQXVNUFMcxsr3RUEfRM BXQVJUSElOIFNUQVJSWSBT VEFJTiBORUdBVElWRSBGT1 YbXN0bFDxJG0FGJPkHJ2Lc S7RHNI1HY61HUSIsool1YG UzQJWYEMpVVGlTSEELX1Nz HZ2VLCBHMN7DHIJOKKNIYN vPI7wKJYRQGXYTSZHNODNh O3OoL2PDB5bFN72NQIPsxz 70AEK1HoXvx4R9LZW7GPWc VALfa0xrQLUtyAJjZfBuGc NcZnRuYmpcdWMxXGRlZmYw j8lzr923yPKmt9suVRAiRn B8eJSaEGAmjUXzH674HQTz TGihg9emt0MjCQPddWIud1 Q8NMWRidepyHb6rXfvG73z d9I6BqhpD6vcAYUxRAWvR8 HuSZ0gZETtRvq6DUN9MCU9 ILYfJNYeL5DgFM6xFXLsvF ZdFHw2s8bsuAfsWMGjISE0 o3yfQGdlzxUkIL2pgk4qdA c7r5bzxkQoQKQcLCZgrYNT TLGvV3IigWvxFs6sgPu4fG zrPpbsKLH9Yzi3LE8ppe47 gcn0yNilAFKfidzkSpR2QF bpELZrlkkxTNs8YWacLJUc uQM9EQQzmCNkL1IePZThXC 5jaab1FDW3MYorOBDxGcU0 NDBcaGVhZGVyeTcyMFxmb2 13WZB5VbVnJZ9yW9Ffe0Q4 mB0fePCyQTOcsTLvAiQpNP Oama8ieYPhQEwcw1UrPWH3 cmA8aOJpqYHoFJLvSrT0ZA yuWL8djs59IYZmCYX7no5a bGNccGdicmRyaGVhZFxwZ2 QrWVLnv335GHJeV8NhHVDq f6Z9mjZsKkPwEEBgiXG8fk Y3ALSvIA6sbuwtt6blCYun PFmfNJOrfzO1qpZ8SCQkgK SzR3DdcA2rGLQxTM2kcput c3ohBOH8UAtuYCDyXNP8Cl NgGGXcf4Sfnrs4YnDig1Qa aUFtQVstR59cb505NBCtky CtG6susINhxseufSHhjsnp HArtruK7QPXiWBhfacrkJZ MsUIrqS3kfTsUrGRXrxEbo VRueq5GsYRXkOWXmIbPfgF DaPRDbExc5LBNdeXEoQBPt OcWpM1kxoproGgNBJARto1 gdH3ietGNXpXGoE9NmNYbo vsMePWlfAGluNNRrHFG2NV 00CFnpMNPwps40 CPT Code(s) (test code i4gbjWLkZBCbdWU2PkZmTP = 3357) Pzs1wsh4ApnEVhpYNbYTas nGPiwlNesy65gNP8pV73OE 4tAAMuSaK5FLBmavR9Byz5 RQZxCHFmxXHeJ468m5dfj5 apmqNhoPZ9tAlvYEInHCAa YWluXGZzMjAgODgzMDUgWC OcIPI3FKYcDdMWSkssGJY5 CLINICAL HISTORY (test g4fpwSPnFPPhaSV8GbRxKF code = 3356) Jim9gdb1WmpGLlyOJjDPuv bTAvajSprm79fJM1kV72FA 1ySUPpGcL2ULGlufT3Heb6 FAOkWCSvqETxJ797u1djw9 vilqIcqMH9eJsfLMIwQHZr PRnnXEIeRtOqsSEmJW2mLO Bhcn0= SPECIMEN SOURCE (test u3ogrESqKUEieCK1FaStDB code = 3377) Dnx1iai3MzcWZauPDhLVtx eYZsmiDnqg35bJS9yE79XO 5uBQPwDjE8TQNgccT5Hbn5 MRIiLPJuqRVrV280b4rjq6 xwueOzxVV0yUhrXYMkFXZj LPjpVKWaJeIoYK7jBTqpg4 HpeQTdgXueDVRTIuCmS5Cw aBWoV2rqCGM6 GROSS DESCRIPTION (test x9skyJJeZCLvoPYeAjMiKI code = 3366) KbDOQpm5spUQThlGIxVxVi MzNcZnRuYmpcdWMxXGRlZm Ijv9vfm278mRNpg3xzTELz MkY5aSSsOAGdaNUhE996r4 dzk0abmdLstBM2YIYfHBC1 NYqphuUchuN7FEcbkEMeYj V2COspftFsNCvaisAgcpLr Bne1NDGyD612EVL9zFrkh7 csOKQ9FSMrUXMqEcEqOh5c eYXnB968UVHwVJPHQMMxjR f0OUJadqXjwjBhqHLGp247 D360l9iyFNXjauNprVfIlo mnw0siE686XIGfmNFxmkPw AbYaIDZvuLUkfIB3CJZbBL 4qvdloClUaPI0nrjrbQlFm DR9igyt3OaAsRY4kygasNg AfNFbfANKqtryqHUThh6Dx ogrjQX5mX6Rag7Q0uT5meE PuTJWinZXxGnIkVCDzov2x jJCkYTmfp7HtZFF9mcZ1lP SfpHGyWTPbSW04Gdcxj8Dl EskpPLF5NHNtecTxy8Jbl8 keAdFovmNoU5zxN2SiPFFm KTYlMIGaIeJfwrToa5Ecl0 KvyBVpsOx9c2keZGHgDNUq rVnoi2ewGOA0BUNlX1O9cD Jaw4gzLPrnHZFbmIA3sxlb VLwdCMLdplD6fwhvVWdmUK WwlTR7egpaJVcmYSZxIpQ5 lfbwAYboCXCrUWE2YStce0 32WNU4PFoeBqcmESkgJKAk bmNvbnRccGduZGVjXHBsYW luXHBsYWluXGYwXGZzMjRc yNekhNmjuQ4gGeDfMvXhCT pzWZ3qNAGdF1okuBXdRTHa HTXsG3wzMfIvnM3alIldUW xmczIwIEEuICBSZWNlaXZl FUAyphUvl8GoDOumktBpCP KwwJDnFEAiRWHmCLOwTZ90 J6PkqgWxXYbrUDGxYQPmiA 4uJE29qEPbfgZkrdUiHxzt r9JnbPFwWliyuMO4FeBtzm HaGBD6JI0uvJylvhY8sTRs vDCyEzCpX47nwtGyNX1yAS V1ppmsHnV0oMM5edBaPrBy J05ypQ9pW0WlKTUxu6GiYH ymKA3xeA6pBHdesVNnYGXw FSJqbLz2INQoPQMxazCvh1 XbzVd3fUTiNNvpFHFruR9k qC9cQKOsKGBoyqpyAVHmRh 8iVKWlC5XpjpLoSWxyTYTv rb1qbLvoBThwSjFjZVSulQ nqNYUlaBuevfDuvaCdPS1s QMGeA5Tij3Kzp78mjzYtPr IxXCUrFJTrL1RooRPnLkEp aXMgYSAwLjIgeCAwLjIgeC MwAeTqC34urWWyKKSmzpyl zErma5GxLFIdYZoyWE55BT doaWNoIGlzIGZpbHRlcmVk IUDnCBCtrMRqnLZ3OQQdgF 4jcW59giEbgaTFNK2dwTUl XUOddxGTaGrohyHMlmk1QD xsZXMsIFBBLCBIVCAoQVND UClccGFyfQ== MICROSCOPIC DESCRIPTION a6rnlSBqHAQnqOA9OtNhHG (test code = 3371) Aza2rqe3DfzZDcrNYlZQbn vJGghnSthq25tRA8fX53QQ 8yAEWsLcB9IMShwpC1Pte9 YMKfAGWnoHPgX619h9xwr5 cpsfPueYU4yLyxFTMcPGIu PQujKUHgVlFcQWAsDu6oeC VkLlxwYXJ9 SPECIAL STUDIES (test y3ufnHNkFPJwz4auFWTlkX code = 3376) FuZzEwMzNcZnRuYmpcdWMx YDuoxfZjOVaff0QrF3YxSi AwMFxhbnNpXGRlZmxhbmcx WTStSNI2diUjODMdWGjrGL WfSUroNr0xsQHhfHufDoDl MNGcg7erwaCLnwnqnKv9u0 khQOZxYiJ8jPZfFFgnL1ub tqQcrKEiN2EeyIPyuMv4q3 dmVmPaDnC2gESxHQdpK8na maSwkYOhSKYzWDi5sG24QS LvrA4aqWKrWRjctdIgNsN7 PIkmOTSuYnJ3MSNfkUHkLJ AdF9ysZDOiLAznWXKxLUwh gYVfOKP9vIjnf0H7cRUrnP WyiEvhWlNsImOjNdXJn0Ay EKw6uKizI7GiYCWmTzP0lL QgUGFyYWdyYXBoIEZvbnQ7 mWdxfwWty41nmPGjPLMmDZ CkOiTgmEqqGCMyOAEHb9Jp bRreQSY7kFm6xOgbJrvjAJ C4Nsd4QT1hfu86fbx4oMpl IMGsuobyYmX9VZjpTIOjcy etDFs7OVztIOWexBY6PQXh tZAwO7EuCNYeEE4hygm0OH F9INynBIBpQuT0IGWtgBNt OOXqgZcwIRgvz760CMX5Yk OoOZ7kC3Fya1E0iR9zcNFi MBYwmLOhGkJpQLHsoy8ieY AxRRobt6WjCVJ7nbT6hHWi nPCeRPFdQR93Gsemf8YiIy nhx7RlW32jlDZ8EAhnx2og GQ5lAyR6oqLtTSfrl3efjX 5fDcV5CDieYM1hSJ0sFXPo uX5knchvUUArKhSmfemmMK YenXknwqOnId2srBtaLGB5 DJrsC9szxP3mXxY0JTrvC2 bcoK8hIHk6WOeppGV7WXTh pV6sNP5kodlsq6feKVusTC myJMRbypE0hjE7OXOooUNa O1QsiJ1zYDLwFX8cwzhnd5 fiEIX8LJvdMBQdBJY3ZuAi DMPmr2Xyfcm2TwQgd1OpoT WoYTvfX12gg259QWXqlbSk U0pxaOIsomtetGAsjpmiET vubyZ4SAXsZCDpRAfgYOGo XGZzMjJcbGFuZzEwMzNcaG ljaFxmMVxkYmNoXGYxXGxv O7ttQeJeD1HeAELaNfLrBN zzBTvsqKWknJSldTK0aH7f DV0bNIZrcLPvI8WaLKEzyz HyxODhPME8nDTvgUJjHI6q FApneRPml0srv7ExO2pxhE eejUA8PX5dETDlSYQpAIxn i2LsyR7rBmrtuRMgwkkuSQ xmczIyXGxhbmcxMDMzXGhp K9udXgXrBFAcbRuqDPqbj3 NoXGYxXGNmMlxmczIyXGx0 cmNoXHBhclxwYXJccGxhaW 9zHlQcBzGjSqdeQY9gHRSz E9lcfRUuZIPyIMOgF3dkSv KazV9twGgpSYcxHjXlKyYp IpOLo518bw0pLNBfjCXhcy OHfKQlrW3eYTjeOWxdVYmn jHGuTKkqd7thSMBcz8j3gT XbVBGrygYzk6adJLaxejCt TQIwjTIsaNXiQRDtr02qOL kiiEttvXdgXVWyy6EcaQgd r4KiOvVvUNhht3SeJ68liG JvbCBzbGlkZXMgcnVuIGFs r50gz4edZIOkCmX1jQWspA Q6xVFmiXJss5WnaEcvRGIq e9ydRTGoxz3vbwtzkFRwi1 VclC2afmvxPXjavJDvslQq FYImh8f8yTJdLXGvAMHrGZ wjmIs2UFRtv027xm1jwtQ2 pRFvDEJ1VFjbUTOoVEGmai UgZXZhbHVhdGVkXHBsYWlu XGYxXGZzMjJcbGFuZzEwMz NcaGljaFxmMVxkYmNoXGYx EZhwB7ucCfVoR8EbVLWgIg VqoQAdE4gkdPWeWGOoQVij XGYxXGZzMjJcbGFuZzEwMz NcaGljaFxmMVxkYmNoXGYx ZYkkU3ldPsDpD8RpSMVdKs IgIFxwbGFpblxmMVxmczIy KHduqicnWEZcERkvT0nhNo WeBUDroQqhKUozu1KwERMq ZOKwFksdhgDxMVi4eeOjKD BhclxwbGFpblxmMVxmczIy TZvpfuzdOMTsPUrmW2epZo KuCBPufAmePPloe1PzASFu XGNmMlxmczIyIEltbXVub2 ewe4OcY2znaWyduQN7WELk I2aarWQpmUH8RFG8pD2tGO cpfjGdIXDsq0PlGLGeUSCc LqW3oX6aJLD5HtJAzGxsNN BsYWluXGYxXGZzMjJcbGFu ZzEwMzNcaGljaFxmMVxkYm OiFHUgVMekF0etNfXmQ4Pg TWVaXdCjmBckCRkrKAg3Us xwbGFpblxmMVxmczIyXGxh onmmPWXkUHnmO6ygQeGjME HoaAujIMqal7RmQOByUOKz MlxmczIyIHMgTWVkaWNhbC VJVV32CZGhMDFufArbqW5d yGRJRFVicnX7t8W2JNjaAI IrMYl3ALpjdjDfOOVgbW4p MYIzYV4iMVo3iwXuEORvn0 YoJK0iHHJjoCJjNVX5JBGb g6ZnK0Osj9RuPUQwGUCeus 3baeKrGrPJbUBtKMPxtx48 BIRcDL0dD3upYKLwXTYlnj XqhLApc3MmSATdmIY3cTJn IG3BPhIHn21wYRFbCUSSti PoGLVouHldnAY0ykN3eU8p LiBUaGUgRkRBIGhhcyBkZX Hszy0lvcAsFEWkQUAdi5Wd mZJlfUMwdzZeE3Exz3IxNY Fatc46BLyslMCggk11JF6b A5Lxk8UabF9rLZwsMTTwe1 KedUUufNSvTNOus4AoC2hm igxcIHnkqUHawV8fGHAhZT d3HOHys9AvHRTxx4WuCsAn ltJrLIHlYUKzUMJzcN58DF T4aTmlsNpanrWeOK0dBVWl nyKgEUQvKUWueP0fGBgizn QvHGVlwkT7g7V7LLwxOKUc npNtDnolQTX5ujKpsfH6uI QgW3dvdrvzEKjhLVHmg1Bo tE2frBIEpPArn0JrtIWnqQ ECeHIoJE1wchAxDE6fCUF0 ODggKENMSUEtODgpIGFzIH H6HJcsNwwxRUU8cxDxAMUa y2ZmCPvqR0ulW31fsUsiyV y6uWNfdGtlbKXvjXHgLDRq bgX7g7G0HOGpo8EjowddDG BsYWluXGYyXGZzMjJcbGFu ZzEwMzNcaGljaFxmMlxkYm MnFDRiCNqgI9zdAhMcItXn PndaQFS1sV== Gross assessment was [facility] performed at ([facility], = 2777) Department of Pathology, [address] [place] [phone], Technical component was [facility] performed at ([facility], = 2778) Department of Pathology, [address] [place] [id number], Professional component [facility] was performed at ([facility], code = 2779) Department of Pathology, [address] [place] [id number], [facility] [id number] 14:24:00 Test Item Value Reference Range Interpretation Comments Case Report (test code Surgical Pathology = 104) Report Case: [id number] Authorizing Provider: Sarkis Laboy, Collected: 10/01/2020 09:43 AM Ordering Location: [address] Received: 10/01/2020 01:48 PM Pathologist: Pa Peters MD Specimens: A) - Biopsy, Gastric, random biopsy B) - Gastric, gastric erythema biopsy DIAGNOSIS (test code = [id number]) FuZzEwMzNcZnRuYmpcdWMx IHtccnRmMVxlcGljOTIwMl oftuTkAFWrxIRlU4Wvwbav NHanOB0nYR5ilXkdmYGhoY RzNIGiDgGpp5lbp019mCQm f2zgUQRMxhodhIj7sQioZ0 0hu1D5CpdzF55czTHnZGji bGFpblxmczIwIEEuIFNUT0 9NI7oyCMSCTjWSDRLMGaIO D3DOYZcPID4CT15RLAeoHf nWQVABTLN8JSHkzcp9XKAx BLIEFdFSLLdaUIAYL8UVGZ dJVEggTUlMRCBDSFJPTklD MAvTOPHWLPBHTKhGC6VBTH GQQoFIMxQoXj8QLPdgRN1T QZAILD3QOXQFPFGUBZgPG4 pPXMRupma7KUGiXKORSSzJ MFcNJH3RN57FLESKYIUOAD 1XRTQcC8iLZ38JXjNNSvET VElWRSBHQVNUUklUSVMgV0 nCYKLVE0WRIXPZY9KHDdhS RLtmIWKayTIqDF3sX4CZHJ bFTfQLBQZQGdztK5RQWM6e YrPFCVFZQwZbSo7DQVqcPN ESHG9ASEAWBSwNUH4GW0MQ XGMFY7mnTINtmFWdKM5jAe DPINSBGxOcVj2BETAIR2IP NXXCMPWIWfINUUOGVV9ZQS HceQYiTBSmacIZVcZPEL4P QUNILCBFUllUSEVNQSwgRU 8DW4XGG8UBWdQGADVBK2MU ZXWKO0GPMGXFFpjeJBUgaE NcOE6oV4uYXnHNEwPHCNEV C1QyA9nHTSBZORxICQTLCf 4YOTDuIO4RG7THGaQqD3KT VFJJVElTIEFORCBWRVJZIE UQR2CLBHFPCBzZGTFMPUMk ciAgICAgICAgICAgICAgLS TWPN6SQaPgSWBHPPBMEMTN X17EQRPQQE2BJYLZNVYPKE JUTFkgREVOVURFRCBXUElU UINABEKAEVEmzlf9DYNiCI BXQVJUSElOIFNUQVJSWSBT VEFJTiBORUdBVElWRSBGT1 MtUI6sEYzDQ7WYZSyNH4Nb P4RSVX4HF07OXIDjcbo5BK XoNZODFIrYASpBVSAAB3Za GU3JKRPBTG3CDNQGLVZBHO tSB2zBZEILTAMWNXXRUAPs E6FqM9BGY6yVO90ONXPfgr 76PDN2PaKlr5C3WNE8RDBq DTBtz1plXYTqhUEsZwByOk NcZnRuYmpcdWMxXGRlZmYw v1upg823rGGkj7blPPFrWn P1hFZjXCMexCQwK490NUEf ABrke8che0YgOFXmdRLlp0 J7OCRInjdjsLw7pQqsO86w m5V2UxfsI3ddLZGrJHAnG5 UxDO3fIGUbByq9WKO4KSA6 TSSfUJZnS2FeCI5zWOFygG YiRXy6d4uowXbnGGNmJAZ2 j2vmBKrglrHjUI3iej0qeW w4n4iborTvQBIzPTKztLSS OMMcK6YnpZasAo9keRm8vW tcXvusPMO3Nvy3DC2cmm75 wqz6oQjoRWJvqyhqCqL0XG qdLWDuqrbjVTe7GOujRNAv kGU9HQKvtOAkE8LpXSUfTJ 4orxk1MJS8LTuzDKMoCxL0 NDBcaGVhZGVyeTcyMFxmb2 09QDX2FiRsBV3sU0Ran7F4 yU0tdUQcUGTkhTJuRwFdZK Iocl7imCHeQUbmg5FkMQE8 ycH4rENmdYBrBSAdSsP9JJ riQN7ghg87PSWbYKL6ni6l bGNccGdicmRyaGVhZFxwZ2 QxVZXve466KXNkQ8GtBJJr k7G8fwQgSpXcTETyfNF2ra Q1VRHkXS3iqkbrz0pgDUqu DTsdJNCvhsJ0knB1IWRbrC NbE2QniJ2kDHBbYC6diohh q0usNGB6QOupWMOfTVS8Tr RmZUMpi5Ppolc1CqYsv0Sp sEDeVAfvB76kd310XMOmmp XgP4yfcMCxyjogoOVacvka XFwkwuC2QYUjEYgbplpgAS UmCUasX6bsQpPzTCYsvMhv WEnzx7RpBOBrXCVdPvSajD KhTNCxBup5TFOvfNOoKHPm JaOvR4lnpurdEnWMMRHey0 fbY1icaUOGdMQqD2FwBFrr trSkYNjiBVilRWXqDHC2JM 92EXwkWGQlhm18 CPT Code(s) (test code r7wkoMNtMLRseWS8DqUeGT = 3357) Axj5cui5NdnZBooUIhUGez zSFkywIusv70wDN3dZ84EC 8fEKHtMzW0OWXakfL4Ujj9 KEVkDVZlyCLaR388h8vrp4 hgueUlqUI6xCdpOZKiCDWo YWluXGZzMjAgODgzMDUgWC KdGPS5SSNzUqMJUumoSWC8 CLINICAL HISTORY (test g2hmqYOtLMSxhCC8MqAcPJ code = 3356) Rbt2yjm6EbiDXxgEFcMNri hNBgldUgpt20uES2xF01BG 3kKPIbCuK7ROXtttE1Ppq0 NQIjDUXzbJAjN989f7jpe1 bpqgUdxXN3fSxhZDCoVRRh GFldEGBbWzMsoWZdZE2vAR Bhcn0= SPECIMEN SOURCE (test b1nitPJuXBJjnQW9ZlJqOT code = 3377) Oiw9gad2BfbRUgaFCqUKfu iDDjrzAnol45fTJ6eD33EK 9jSFJeWrA5YNQergE2Jfm7 MJNlVXBgfJCmS090b0rra0 hxmcVjnAH7oVteWJTpXGPc MVxeVRAuDyIuIO9iVMsmi3 RxwPZelEqxADWOUkGxQ2Mw eAAfM1fhDJA1 GROSS DESCRIPTION (test i4tkwWWwKWBqfADeEnKsLA code = 3366) EiBIWlz0frPZGpvDGoRyXb MzNcZnRuYmpcdWMxXGRlZm Etg4bsw652qTJhr7fyIUSt IkA3hYIjCSQbfWObK435f0 xeh9ldiqBhmIH1YJUxVTQ4 DJoxajWxqmO4TRzacKBgXb M0GMkkwiVwJQbxemOguaOn Dyn9TXDuY306JOI6qVzbk3 evBCE9ZOLgSKJsQuZtGu1q wWMcC262QCKdRHJPZMVpvA t8LRVuqcFmbzDvuHOYs361 G388l2zfJQEdpoUtiMwPkg mju2prE016QIHifKOnfaKe QpQzJDYgtDLmtKI3KVJwTT 9drctgVoIfHI7bcwvyDkRf LW2ktwp1XfSqWR5rxbhzYt WrOWocNDQlntniQWHtp9Lk bmidDU0gH7Owo7X5jW2fzM KbTAUdxKMzZjEjUPSbzu1h sSAfBBsjp0PiLBO3iwZ0qC DsdZQyJURmHT18Ypzjz1Ee EqskFGK0DQDifxPub4Kly6 poPsJdkwYkV9itJ1ZsJQJn OSXcMUBlWmXlhdTfp1Pyw3 FojXRvfCd0x5zjUCCoXTZz qNqbw6roEEZ2GQZuT8M1xT Ccl5nvURhlXPTjoQY8bmee GFzxGNEofzA4qxjqQFhvKM RbjNH3ljjlFFhfKJBlRtT5 cnxrKBjkTLJzOFC6LCwji9 25NIE9WNnqWyswBOcpMLJo bmNvbnRccGduZGVjXHBsYW luXHBsYWluXGYwXGZzMjRc dWwxtFgatL8gWmUxRwCcRY ocTV4fZQVpR4egiAUjNKQl DNYnO0qfMwGslT8qgHqgYP xmczIwIEEuICBSZWNlaXZl FVXqtkEpy8GjDYkfilHfFF YqxKFbZOAlCOYnKAWgFL97 Y8IgsxLgZIuxMENaIIQquL 1bVZ20zZEbcaDmxeJyLxmf h6XpnSCwDmjosHJ7KrWglt ZoUYA3TV9bxVqvyzF8jZRd kSErHrRnD51myyMgQH8xQO A3xhjsBgC8sPS0yfLcWhWg W67ozY6pJ0SmTFVhy4MmKA jaBU2zpF2rMPmyySGmEZDp PIOboOa9UGFnPTMkmuOzo0 QejWp3tCTiNIoiZZBgzL7w gE8eRKBhEQEizxfvGLRdCe 4oVYHsQ8FbmaGlNFvzNANm bh9efZwsTByhDkVhDZYzzR zmQUZdvVkhppNnauYvLF2j NMYdM5Vmh2Hbe15oiiHyIx RaYHGvGEEyJ1DvzPVyVzYu aXMgYSAwLjIgeCAwLjIgeC FdAcPdH86hoOVdSQHqwdiv uHzum2TrUKQcMQquWH21LK doaWNoIGlzIGZpbHRlcmVk ARSdNSXquHWdsIT6KCZlrE 8kqQ42ciGrfcEJZZ9uqERm DFZjupSNzJfpvsOFlct2EN xsZXMsIFBBLCBIVCAoQVND UClccGFyfQ== MICROSCOPIC DESCRIPTION f8tkhVHoRIVwgGF4UwTpUL (test code = 3371) Fqz0prl9DnfBPxqMDsMMmx yHVuaaCzmc87tJE2dS15DZ 7zCGPxVgL5IFEirbA0Lig9 SDBvLMAnvFBsI352z2ptu8 dxnvMmoEQ6oEnfKIRiSUXb DEwgGWOgOpXbBPReKf1jrW VkLlxwYXJ9 SPECIAL STUDIES (test a0vjuFSgQUGqu4icKIHomR code = 3376) FuZzEwMzNcZnRuYmpcdWMx NJjhjbMdBLkur4CeI9ZhEe AwMFxhbnNpXGRlZmxhbmcx RBDkACU2gtMyHPYvXAsxOY BdDRvlRo5lmBBddKlpUeXs RFPyb4luvrFEuzduqUm4f4 xuRTIoHsB6oWQrPZoyQ8df jkWhnOScP5TgqKCguQd0f4 nrEqNqVbH6yVKyBYqzD0pz mnHsiISsOPXdEPu0gK67AJ SesS8ghMLmDZsryePpSxV5 ZAoiQUZaAzO6LITmdXIwWQ HqR7riJATmDIjaJKBcZZdx eBXpMRO0wHobp2V6rOCrcZ UclUkzPyOdLfLmOvMUi0Pp AUy5tUmqO7ZyIFTnWeA2lU QgUGFyYWdyYXBoIEZvbnQ7 nZfauzLax81jrQOsDGThYU DyQzAcrGvkZKYsQPQDg3Sd gXblLSE8fFf2aAogMprpUL Y8Wjm5VT6hsn57kdu5gItb HWLwofkcSwM4HBvrEAFlfc gkDXx5EAiqORPhzIL6MFTk iAVtL3GoEGUrBC8wncj9TT L0WBbpAUJzIpG2WNDkyEIb JGKatRnsETxzj764VLH1Xp ZyIB6pO7Yxq4K6wU4poFNh CXWmfEZoMzUlMVOdvv8ybC BsOThuu6BkIMQ7oaY4jFMo iGZpIBOsGO31Jarqp0NmQn ddx5LuU16dqFD6TPlgo2ox ET5kNuD6fhKvDWzpk0upyW 1fQmQ4ZMstLD0zOQ1kLKZg hR3pbkldXKNvEmBjshtkPP WwjPyvhzKdYz1syVgdILW6 BCeoK3tmzZ2eGmN7ELysM8 ahtF1kUXw3EToehJC0BIFm pL7nZD1whepld5goDHvsXK xbNJGeioF9pdH0XJDczFYu M1BkjH4tKGPdOG6yhtwsf5 igYMI4GVdbMQPmEZL5GpYa GEZze4Tqkul1DgEde2WymK ZkQVemJ44om176MVOnqsPf M9kvxHWftussjGKmvyujVP bhohV2PMIoNQBdVRygLKXh XGZzMjJcbGFuZzEwMzNcaG ljaFxmMVxkYmNoXGYxXGxv J8nkVaKbZ8ZyOVMpWoRhJN pwFTkipCGpcDGapEJ2dY4d DL2vWETmgRYkL6AxVHUcen SytQMpKUO6pKYwyOGfMK9u XOsoeFDnu8nsj0WvL6ukpE gmnLV6SB3cLSEbCUHlGHfg f7NcsL8uJspddFPqxharPD xmczIyXGxhbmcxMDMzXGhp K1dtDhElDMDvoIgtFQfzn2 NoXGYxXGNmMlxmczIyXGx0 cmNoXHBhclxwYXJccGxhaW 8vCcDnPgXyLsolGO5zKLVi I4fdeBZlWXHaAVBbA0uaQk InoD0mrOiqJTrnMcDlJiOt BxSDr674qm6sNREkyIOtka TChKGkgF0wLHisWWnkPVss bFAlQUkha7wxCXGgi6p3cB UgWTZeceWvl1hmNJdcktLq KVDdzSExaLRfCFPuq18yNY vxxHugtAdfLQFrs4OesJiq q5YdRsBcOUmff2SqJ95zeT JvbCBzbGlkZXMgcnVuIGFs l17ih7bpDSSqZpV4sPSqkY R4mVVbjMWsi8UuqNqwBOIc h5gmZPKxkv4kpnxusVOyi5 BcxR3wwwlsKOjxqBJkysUb IWGos6f7zZJnBVMiDTYhBH xvmLc4ZWHku473yt8dheT1 iCAvNTK8DUzxNCHaZIVuxy UgZXZhbHVhdGVkXHBsYWlu XGYxXGZzMjJcbGFuZzEwMz NcaGljaFxmMVxkYmNoXGYx NAzkG9aqZkKoG8GdIMBpGs LwgATdY3qjvEAwTJGhAQdt XGYxXGZzMjJcbGFuZzEwMz NcaGljaFxmMVxkYmNoXGYx BUdmB6udBiGjL5HcKDDlVr IgIFxwbGFpblxmMVxmczIy MFeuzwecQSVuDHadH1xdMf AiBUXnaRfsLIvki8KwRMEa KTOeOjngweOfJWk1xqLlRN BhclxwbGFpblxmMVxmczIy YHajfryfOWXcTLepX1qzDi ZpAGXzaIgtRQwip4YmVPQf XGNmMlxmczIyIEltbXVub2 pbr0PbQ2uyoRxfbUY1TIPk E5znqCMcdNF9TKK4jT8zQF clvpKxVTXjv8UfTGFxFKSy MdO4yM4pSYR2GgHSbFtfLH BsYWluXGYxXGZzMjJcbGFu ZzEwMzNcaGljaFxmMVxkYm UuINYvNWbcX2gzFyUuS9Ox WRHuZnAdaLcrGBerFKp9Fc xwbGFpblxmMVxmczIyXGxh jcwhEFSbNYliB6dvUwPeKO IzzPdsZGviw0EyNNGjPVRv MlxmczIyIHMgTWVkaWNhbC KTZW34NUBpPJFxeXdwiC6l iCFADJSojyC8j4L6AErwBU NtLRh3WQuwmqHwAIMkeK9z FZIiLS4qQWo6uaFoTXOsm7 AoEA0gEVHimOPbOGK8SOLh h0LzS8Abf2QaNRCfBMQzvm 2ochQtWuTQjULuDDEagz52 NYOkEC2iM4vhHWSrYEXgee DlqXMtc3ChWSGmbIU3aJOu QI8NQtBAo05uDLVaNFFRfz LgVQFqdCupjUT8qjQ8rN3z LiBUaGUgRkRBIGhhcyBkZX Mbox5ngoZtCYKwTBKci4Fa uMSaeBAmhwEwS4Zej2GyEP Ofsr91ZXkuiWHdro73CL6w D8Nys6PhmU2aWYpoOVXdm5 AthLJkbCRdZDUpk4JfY9nz dsyxAZtjkCLywR9mKXKaED e7HIMqn4XoUYOcq1FfLjWd pcEwCDCpVVLsTUFrmR00TY J4pUkcnHvuxwLnMU6dDGRa enIjRIHqOYGxhE2aUNycyo AbKRFrbuQ1t9F4HDcqZMQd yvTyAomsMVL1syPeoeV5eW WaA2sulhecHFppIXFcw3Ch dR9yrNEQmTDyu0IyuZUaaY YEwXShMD5ddsBiNW9qAFY8 ODggKENMSUEtODgpIGFzIH P8ABllZvhsOQO3vnMiIJVs a6QeJXsrG3fgT60jfJlndE i5rFPdjYzcjDUbbMBuUZXm ekA0r1T0LJMir0VkakdoJU BsYWluXGYyXGZzMjJcbGFu ZzEwMzNcaGljaFxmMlxkYm PqHMVrXDpuI7fbWuOmUtBv AuoiRQP6wR== Gross assessment was [facility] performed at ([facility], = 2777) Department of Pathology, [address] [place] [id number], Technical component was [facility] performed at ([facility], = 2778) Department of Pathology, [address] [place] [id number], Professional component [facility] was performed at ([facility], code = 2779) Department of Pathology, [address] [place] [id number], [id number] 14:24:00 Test Item Value Reference Range Interpretation Comments Case Report (test code Surgical Pathology = 104) Report Case: [id number] Authorizing Provider: Sarkis Laboy, Collected: 10/01/2020 09:43 AM Ordering Location: [address] Received: 10/01/2020 01:48 PM Pathologist: Pa Peters MD Specimens: A) - Biopsy, Gastric, random biopsy B) - Gastric, gastric erythema biopsy DIAGNOSIS (test code = [id number]) FuZzEwMzNcZnRuYmpcdWMx IHtccnRmMVxlcGljOTIwMl pbdkIuDOYcrBFhN3Pcpzal OBnjXG0lZN0gcNpnuEZxiL YcRQPdSgFip6jau961tKHg k2unVXABqjzubYt4mZehE6 4vr4B3NjtzA18nlHSmCOvo bGFpblxmczIwIEEuIFNUT0 3CR2ksQBKQNjXFAYAHAzET M2BBGUjNXL0XM31SDRweMk mUDSMDUJM6MOSmblm6OQYj EYZNEyZYZDfiHVTED9BPKK dJVEggTUlMRCBDSFJPTklD LYeHDJHWXRELTEvCH5OVER AZJhXAWkUzPd2XEQyxRF1W DUXPXB7EWVCVBMTSSXrVK9 dTQKOhhac7GCNxUZCJOKuC YVuJAJ0IA60LZUDHFVTWYK 9XHKPxC9nAV61ZUfFAFfJF VElWRSBHQVNUUklUSVMgV0 mJQBLWU3ZUWVAKF0HOXfpN YBhqTZRjpTVvFY2fM5SRMF oQFaWTPMLXFflwC0OVVN1c DeVWMWIVGdRfCp7WQVeoEI PEYW9NCLDCUDeHCM1HA4KB JUWAU2ylMCMtfTLxPK5cTy KHBGTPSfRyTz7EHQWLT9JF IEDTLRLNHdZLLZWGDS4BEN TezJUvUCExeyJTBwHZVM7N QUNILCBFUllUSEVNQSwgRU 6AB4ZMK0EKSwNTMCDUU2MH PJTIF8QNBZDFNjvgPGNqtQ UnSR3fP5rVInGPAuMCRUKK M7XvR5qNLUEZLKjJRICWCo 2UWSUaDI7ZM4PZVrHaS1TN VFJJVElTIEFORCBWRVJZIE OLO5TOKHYVKVuPAEFJLRNs ciAgICAgICAgICAgICAgLS JCFH8AGyCmOSERZOOGUSVO N23VDNMCXR9SFJMJJRYITQ JUTFkgREVOVURFRCBXUElU LELIYTWQYOFzrsh4BADyTG BXQVJUSElOIFNUQVJSWSBT VEFJTiBORUdBVElWRSBGT1 RsZT9fUBpVW2COTPcMC9Zp V2AEPN7FK26JXOHoigc5IV DhPUFEOMyZGFnBDNGTN6Cw HD8EDJVPRL1MCKMVFIATDT mGI0eGYPWFMZLQWWIPQTEf Z0IgM8GJF1gKL66NWSMqvk 47UWG9VeQat7N1JDS3MJTi OWIgg8cpYKIjwRQaFvYiQp NcZnRuYmpcdWMxXGRlZmYw s0zjk502qYZfe1thSVKhFp K7kDBcMSBbdICsW371FJBi SBdhc6mnv8BiNOQffLDfr0 N2JWYIrnjyfNh4mCakE67x h6N7EhsbV6kbBDLmKKYkY7 EeVS2oZZSuWuc6YCZ9FBU8 ZFWmSHUzF3FlRE6nZMGmnJ XoNIx8x8sfwCuxJKWsKMM1 x6txNYsrymXcHZ6lgw5mqV h1f5ncowWjADDgWQLdaLFU QQYiY6UsdVtmEg8gtMq4lQ kiPcojIRI0Eka6AS5vrg75 qny8yNdiQOOlzwdeXsK8KD bfWVCopvxqASv0ASzhJMGh xPN2MHSsjIMoV6HaIIEzXU 7mjxq4JSN9IEarXCNpVeP7 NDBcaGVhZGVyeTcyMFxmb2 99HJA2MvMcEM9zL8Tni7T5 uB5lcLHdOLLbxAEcIoXgIC Ahqb0jvMYxLYzbo3HqMJB5 rtN7cMOkdIQmDDHaUzI0ZI hrVH0wrt74QAQlCCK5nz1o bGNccGdicmRyaGVhZFxwZ2 FaIOBwy387YSVvQ0KuEQAo l0X8cnQeIsBqEFPoxTY3gs O6XLSxUD7ubiykl1tdZOxr BSzgZXZwepZ0eoM0KPXyjH QtT1GurG6mDCYeLK0fmzyf z2cnODG6YLboPKQeTHI2Vl AfIPBfb9Dcgzk5XpBet6Gm yMQsVZzuD95zg740IYZmif WeJ2uacDWihwxnzRVlxvcx HNlnfoB1GYDhVAwtbtthYK FiVFfiU8feXxHfOBZjaMsf SEvoa6EdBGMtOSHvTmBdnL RrEKVtIjj1XZTbdQGnKJAd AdQcS3ifojdpOcSYIGAjt3 blE9vsaUUQzIIgD3UvELar jqGlSCuoURdlKMOyMKD3NU 04VLdcNEZjme29 CPT Code(s) (test code i0fuxDYmMQXjhRB9VhDqKX = 3357) Kvq7iqw2NnoISzkWGdDYbn hJIdzvEabq23pRJ8mL72FY 4qXJAfVyH8IGEgibO3Emu9 WAVgXHMomGPaV014f3jyr4 ueuwKthHV9nBgzZXUjSAWi YWluXGZzMjAgODgzMDUgWC UcEQQ0MKDoVfFOAvzkZLM0 CLINICAL HISTORY (test k1njxYVrPYLtkBX8XnIcRM code = 3356) Fiz9chl0CyvHLebCSnYAwb sCMprcCfbz32pDQ1iR00KV 7gSLTqXrV5DELkzeC1Xjg3 RSPoQBXdvLUmV882o6msf4 dtquLmhUS0dJvdLAPeCSCl SKmoTNUyDxMysIFbAZ0pEY Bhcn0= SPECIMEN SOURCE (test y3xcdQZvEQWcwFK1WySiPG code = 3377) Mzy7hfh1XdtXYfcCXkPNiu pCKswtYvai75fYB4kS37ES 3qAHMpAsU8QSWnhuG0Lde7 YTBzFXLnaNBkX463i5bxx0 lvsaPnzGW7kWsiBUDzREVw KQmqAIYdImEmGT8hXPdsp1 AhmPWjdDmzGFONLwGqX4Zm kIKfL7iaWMC2 GROSS DESCRIPTION (test b2kxuMAaVRBuzYEtAyLkVZ code = 3366) PaYDFot8odGQEwfNRdFbLs MzNcZnRuYmpcdWMxXGRlZm Nrv3yiy150gPJsi2vgNVFj QmR9rAPeNALrtEJzK348i7 tkz4dukgNlvRB6NAOaTIR8 NDqgegMdkrE1ORwdnKIfYm C6XUkotaCwHLcnqyFqeoDo Nys6QXHfP958RBJ9oPpdd7 qoFVF4EKOpFTSfSjGdZj5p oTDhL385GDKdCXONLTZefB s7JOBdegAdtuHroQUMz868 Q958l8wbMAYtzvIdhYjJra fqz2vnP214KPRfzLNbhyGh TqOlLTZyuUGytKM3ISDxIC 2sjxffPzIdPB6srilpSrOr CS4ocse2CnEdVI0worbfVd TuWFjvFMYlxgefSKCva4Yw doefYY8tA6Lhe0K4rH7ccD WzWOMqcOSeIyCdRMTxya7n fMKwAYhaw8IyZCY7roE0yI BpbJLbKEBmLW11Vltgs3Ib GsqvGRP7ZEBvnwMza1Mwc5 eaKlNxxpQoO3drP8NpSBBd BCJgQNIgBoNelzVok4Lef9 NofLCbqDd2b4vrAZYaWGZv zSlpj4gzKPO9XWZcR3Y8kE Pvg8uqUKlkGEIcwJV1fbcv HBuvRSPppmO3yhsvXCjnYH JevRK6ijrfTAuaRAOtNpT7 ticdZKhwTZUqKQK4DMydk9 52POE1YKniDmwwFBrdJADo bmNvbnRccGduZGVjXHBsYW luXHBsYWluXGYwXGZzMjRc bOnykJsneL9nZiUoBbDqSE dxZL0lVPMeQ7gbdZCwXOMk UCOrC8ydBwPkfW8syCrrGT xmczIwIEEuICBSZWNlaXZl BGHfnvIsz7HpVDacciWyJV KdtETdNSQwYMJiIPTnEZ69 C7UxeeCpDAayLGRePPWpxJ 2fJI46mXIuicBbetDbFxbm t8BcxVCgDfjguES8KgCjue BaRAR3UH0jjUptnmI9gVUe vBFqZcJuG69tvzQnMS8nXD X2cyamBnS2nWD8uaUyUvIj V32omF4sV9FnISGwy1NwGW vuJJ1yxX7qEYdwoKYcHCTz TVJjdTw9XAIzMWQilbDhq7 FabZv3eVVuSIkuCRDskS4g rB6iCSNsXDEmppkdVJHkAq 0uCMFcN3IgbbObMGwpXGRe ps0waYalKIfbIjLsOYIxtG hzNDSkyFaxfiXmleNaMS0z GUCjL3Kmt4Twl31jabEzFv PdAQGzNGWnA8EzeVVkYsCm aXMgYSAwLjIgeCAwLjIgeC ZkJoDiS15cgKIpEVRctapy xZjal4MyUJNlXQkiQS25VU doaWNoIGlzIGZpbHRlcmVk CPXaCTFjgJZpgDE2XQRooW 0owI87zqLmjwBSNY3ejUZu HIOzrmRZcImuawTSkvi1FJ xsZXMsIFBBLCBIVCAoQVND UClccGFyfQ== MICROSCOPIC DESCRIPTION e9hcqKCsEEAkhAC0UpPdEF (test code = 3371) Unk1mls4PzpKIiuIJjQApt gXAcrhPybh37cUC0uY88UQ 0kNTAkJnL1KBJmprX5Mxv5 PCJoFUBzvAEwA040m1zcn2 gxfyKimVK0jVeyISRwGRCx MIycRAKmWgLcXNCeJt7trJ VkLlxwYXJ9 SPECIAL STUDIES (test v5pyjHZcVTUkg6flEUYxtA code = 3376) FuZzEwMzNcZnRuYmpcdWMx HWnbbgXdDMtzy3CmY2VyXt AwMFxhbnNpXGRlZmxhbmcx OOAsWHQ0rjNyAFRpDMdeQZ ExGYefVx7nhWEyhWfrCyAl MDKbe7axhvYSftcsoLd8x0 xvZPBiHkK1dFFdIPtxL4vk pmQifDDlP7TemULytTl8j1 xdUyZaLdS2lYSjXIukG9gf vxBtoVKsUZDbQAq9dM17PE VblD8ttTVfIExnyuFhQjM0 GNdnNFBiGiR5YSNfkBXwBW QrT8oiHTOgEJjsVAKvGHjc gRGiYAH1sBzlq4N8jAVrvT YqrKecGvEoYkEvDjWCh6Fw WSv8dDvrO5ZiFLTbFxP3mU QgUGFyYWdyYXBoIEZvbnQ7 bAbbszXqp31puAWySMPcHG UtQuAinGakWZCoEXXUo6Kf hHzeWQE1uRi7hKluIjezYK F1Wam4YQ7qnc59tyc9cKyq FWZdztthLdU2HCwfLNHthc erNNe1FUjzAFNszYY8OUGt bGKvN8WfDRLwBY6hhgg2JO K9LWyhTZAcYjC5ZJMwfIFh BVKqjPsnDMmph711KAJ9Mj PpCN0kT0Yhx3Z6uU5hiSDo RNKyfLSzOsPgQWRfqk0ynK WwGZish6NfKRK5aoW8qPJh tJMpDYSaJJ17Jwggj0InTy ctp5WqU38ffJM0XHevo5xp KE0mVuR4ikZaCEuyx5ajeC 1aReR4YQxbUF6nBD5qEXBd tR5prupgBYAeCfQuhxepZU XueGrqzbEqRv2woMtqMRS6 ZYknG3rlaT6nNsX8GGpcZ4 ozbB0vUUa2UZwgaSW4UXDs aD5xRH7dtwjea5soUWacUT ipGOUlgkF7xuB7GQJviHAy F6VkpV7rPFVxAM1pqywsy7 zoSHW7GEzgIACnQXI2FkMo AZAbb5Qllsi2BdEke4IjvR ZgMJrnX56fj884XQAgjnOz G3ktcVGnflpzqWEahcgoEW fdimE8ATSwGLMrOLhyNHNl XGZzMjJcbGFuZzEwMzNcaG ljaFxmMVxkYmNoXGYxXGxv B7jmAbYuP8TqTRXzWsXsCG vlUEedpDNlcYXjpZD1gV6l ZO8wGQEcyRGrX6TrVLQisp TyvLYzELZ1jFVfeGHnFW6v YTssqTGeu9kur0WlZ3ufbJ xtvVZ8XU7zEXHuCUKnPCbc q7NlxV0tDyyirYFigfnjTY xmczIyXGxhbmcxMDMzXGhp T0otGyXeZJNfqMymRGxxr8 NoXGYxXGNmMlxmczIyXGx0 cmNoXHBhclxwYXJccGxhaW 2tXdDcMiNgJgohWT9oKMWt U0pfyJMmHRQbAHNaK2mfFx WkdQ8crKfdGRgsJfPkUpJh FtLNr904bp5oJVMsfUYbnw FKrRNpcO2mGMiyDIcyMLiy iBMaMGkrz5imYJQdi4d6pD BcQBQljrQwj1psTWahulZa KHEjaCJiyXXtPVUqy10eLK nhjUjrwQdzHSTiz3IlsYkn n6LdRtUuZWzay9ZpS80zlT JvbCBzbGlkZXMgcnVuIGFs s07re7aaTKGyFjZ6cWVdpV A7xQLkhDNbo3SutGmrKWIp c3qgFFZcda3ctjbucQGvo9 NpkI2hokkpMOpojZKotaGz XDMuz1i4rLLbWVAuPULySU bigQz3HATjz068eg9ggbO2 sSHtQAX4EZclORYvSAJnkv UgZXZhbHVhdGVkXHBsYWlu XGYxXGZzMjJcbGFuZzEwMz NcaGljaFxmMVxkYmNoXGYx SAyrU5neOxDcU0NxOLYtLe AdhYQsE5dwnBZmQMCrCCja XGYxXGZzMjJcbGFuZzEwMz NcaGljaFxmMVxkYmNoXGYx YItsM2yaMoYcD7KsNPCwNr IgIFxwbGFpblxmMVxmczIy XOggcpdaEBJaCGusU9gbPf RwEJAttNjgRHhja6HhDUOm HHGqMxonflFtDGy2opIrRW BhclxwbGFpblxmMVxmczIy AHpggwdjHOKdSBkpC4kqBp ZlSFVgzLooNSlca9RmWVHt XGNmMlxmczIyIEltbXVub2 xif3LaQ9ofiJyfyLS7HORz P5fsmXEduOJ8HZQ0nZ9oZG giqzSuOJRth3YdBQSpDVIf KjL7aN8yIVE5MdGIoGmdFM BsYWluXGYxXGZzMjJcbGFu ZzEwMzNcaGljaFxmMVxkYm WlDGJlRCaiY4xdBsFeR8Ev PFDqImVxpDkbCHmeVGl2Bi xwbGFpblxmMVxmczIyXGxh bghdILKyAYrhA5tyDcYpZD TfyLkiPSmqv2QmUMBoCFDf MlxmczIyIHMgTWVkaWNhbC RRZL35OEGdEMQafImjtY0d kHMRMMSbjiT6i0C6YUznTC WdOKc8AKidabTcEVFwgL9p RGOxOA9kUKo6hdAiAXRbx8 AtQH8aVZWgoZYvLLY5PAAo d9BnW5Bvs8CqQMYoGHHuyn 8oaqZgHrMVpRLfTAIiqr09 UIPoHM4vJ9rpJTYgQCKgzi XlhBGcl7IjTOUivXT5mGWb AA3QQsKFq34nVEQmQTBKsd CdVPYreFcgpGM7pyW9hG1u LiBUaGUgRkRBIGhhcyBkZX Cjny8tmrBlFAHzPAUdp2Ju rAHyrUHmkvSnD9Epx1TbTH Anyy41EGnwdUAuzw50VP4r B1Jqn2JdfM9dWHboBXPny3 XmkNKbvCYcKWBqe8HaQ8vs zxkbJTrfkDDjeG1yOJEoCQ k8GPHcr2EjCHLoc0ErBgBl xfYhVUOxMZYyPRJiwC49ZU L2sIoyzUiqloHuBT6iZJXn bnGfYZCvMAAeqZ7cHHzqxk IjXJLfylS0h9D9RUuwBBSs qmSvSisqXEQ2tvBxigO2gL ZcG6dhlfspNEdoFLQvb6Da sF7iiECOtEJek1WcwIKwmP NQdRZsFR9iviReEK7mNYL9 ODggKENMSUEtODgpIGFzIH Q5RAqhEhpkYTS5duKeVNBj g9MdXRlgY9cuS38jjGslyG v8hDFhsQepuDGztYHqUCDq cmR9w0P4DZTqi2IxdeztSY BsYWluXGYyXGZzMjJcbGFu ZzEwMzNcaGljaFxmMlxkYm VkNUNxXUumT6nuPgOlOxSw JynrIGN2eQ== Gross assessment was [facility] performed at ([facility], = 2777) Department of Pathology, [address] [place], [place] [id number], Technical component was [facility] performed at ([facility], = 2778) Department of Pathology, [address] [place] [id number], Professional component [facility] was performed at ([facility], code = 2779) Department of Pathology, [address] [place] [id number], [facility] [id number] 14:24:00 Test Item Value Reference Range Interpretation Comments Case Report (test code Surgical Pathology = 104) Report Case: [id number] Authorizing Provider: Sarkis Laboy, Collected: 10/01/2020 09:43 AM Ordering Location: [address] Received: 10/01/2020 01:48 PM Pathologist: Pa Peters MD Specimens: A) - Biopsy, Gastric, random biopsy B) - Gastric, gastric erythema biopsy DIAGNOSIS (test code = [id number] 3220) FuZzEwMzNcZnRuYmpcdWMx IHtccnRmMVxlcGljOTIwMl rmyeYqZYKuuBMgP7Dlthut VJwrND4yLJ1xqIlvrKNkcG SoACXjQoAzc4tmk267yBAs b8vaWZVJtyuygIw9nPxoQ5 9cp6A0KkjcA70ewYMuQGor bGFpblxmczIwIEEuIFNUT0 2KZ4gsIOVCMfSXMOQSUsGC M3UILUvWDQ7FI77AREtaZt nQUONZSPA1ILWutff8LONo IINJHrANLOaoAGKEG3PTMA dJVEggTUlMRCBDSFJPTklD ELqRNXGNXXFPNRfXO2NZCM TDLhGZRmHqUe3NUOsiLX7Z UFNPVL2AMUQGEKLDOQhXV5 jANRSbxwm4LMCoIATGJWcD WGnUYY2BD22KMRUDZNFOZR 4NZEJdN0rTD70UKbUUTkYF VElWRSBHQVNUUklUSVMgV0 zCPYNQR4JZVWCJP8VLJbtF FClcZFYugTWfBG7yP3LUBV cUScPVHVADOmgbE4EBUU6y OqVFXXWZHmBuRu6CHNlnDU TWMO3XYOTJKPnPWX7OH4KA PHYRH6ueJXZqjYJbPJ4eQd SMNKBVMxIxFh1DZGPCG7JA TPUFNMVPGdPGYWMGDM3EYJ YfqVMpJFYmuyNUTkJBJK3H QUNILCBFUllUSEVNQSwgRU 8NB4RTY1VHMaMXFDXYC5FF HPABV2UIOKPWWjsoQTRjpF BgKL5uA8bXWcTJJuZBBCXJ O4SqX6yBWBZXTEbDHCFEAq 8LERUtJI3XB4JMHyIfB8JG VFJJVElTIEFORCBWRVJZIE KLQ5TSIYXHLVzPGIZDARPx ciAgICAgICAgICAgICAgLS OHGE7DVrOfBKYBQGIROGRZ L90KWTTFJE5OAXGAFKHZHQ JUTFkgREVOVURFRCBXUElU LGPONMGUTVIqkby0NTFpKP BXQVJUSElOIFNUQVJSWSBT VEFJTiBORUdBVElWRSBGT1 CiKP2pSKkRJ3OWIGhWI8Ri R5IBXN0YD63QKGXlzjc6LX MnSXCLGHtKHWvDJDITP4Pu IX9KUSPEQH4RYNZFDSGYRC kWM5aNUQTXYDIJBSZKKXOv E3DsY7MTK4jHV07ABJCesi 10EEM6ChNzv0S4TQK5WSAa CWEqm2iuBJHhnOFzLeSaBk NcZnRuYmpcdWMxXGRlZmYw m7gdy896yHMwp6jkNTDmQi S0vTZxMWQkgKDiS128UYMk AFshm0dby7DtQJBhgCCaj9 P1THFLnjlpmWl1jUdrV71g v8K1XqfpH4ygRSPeZDBfI8 KwZH2uAIWkXjp6NCB6YSX5 UQFfUJWeL7WvHS1wLURmwX NyORf1w9dpgVyoWIFiWYL1 t9dfUXcxjcDxTF1vqr8zdP g4z0oibeOjAULxVDMwqUXE XJLbN9XcdTjxDt6pgZe7hH znWrsvURB6Zim1YI1txi10 zub8qJxiYZIkhunrIdU0ES zdKTVdyyaiRNv6AKzwMATj bKL0ZXQnkZOrK4AtKNMqYV 3gfph0IBN1AQtkHGHeIyS6 NDBcaGVhZGVyeTcyMFxmb2 98UOU0LsNrII5pV7Yxx0B8 rT2lhMAqJNFhlLZbGwQsQZ Oxxn5tlVJiFVxog3HcKRF0 unC8cPZuoQFtHXUkOzG1WE baQK0snq92GEXhPJO1hh4m bGNccGdicmRyaGVhZFxwZ2 TaUWXpv783WOPmT2HsPOGj f0C4lfAdSiJdRBItuXP2bn V5DCAcYU0uyptwz5ilYQoe TKhuUBGhlgD5xoJ9KAPbfW VhI7RhfZ0oYNPmSW1maftm y9anYZN8EFctSGVwUUH8Gg UhJGLod9Xfvol2LzJae7Qo pSSzVGwcV49yp629MCKiyg UxT7bukCPcmnlvmNQsicai MHdoqmH4WFVeSOhskiotEB TwPYvfK8fpJoKkUIGobIdq XBhwc3UyONZmTTAyFiKhgZ SrFDKfDrx2CMEukHUpIVKe JeCjR1vijnzrRbBIDBTlw8 jcM6wpkXPVyKFjI3GnGObz voPaQAyiEXbbZGWlEZL4PL 46TFhxSJJvdg61 CPT Code(s) (test code a2gieFOeIBAogET7HkFdOT = 3357) Qhl5pea7IzqGSdwRXpXGjl cDIiuxIelo53qXD2mK61FV 9eXNMaIzT5RYIauqD0Oyd2 KDYzGDQxgOZqR667v9hxe8 jnjaIuwCO3zWbuUGCmYLWt YWluXGZzMjAgODgzMDUgWC VwKNE7KVObZgIEXkqhTAO0 CLINICAL HISTORY (test d8lpoQYdUKLkhYS3IsQgKV code = 3356) Meo4xfh1MdaWZrkKAgCErh yUQeueUzde01wOR6dV87JU 3dFIEbQfN2RYQtvzO8Loy5 ZCYdIEOlpFHcM035h0xfi1 fcvtCocLH2kSxmJRUgHELl JAhnGMLxEaJuqYIeEW6uXX Bhcn0= SPECIMEN SOURCE (test n4mxqABfDFLrgLK0MfAgRV code = 3377) Zml9ezc1SitTZkpLMiCMjc vXOvxwRpwz85hWB1nG62DG 5oOFHySmB6LCDwquY0Uxo4 AVFjMQHhlVUsF328j0jty5 batrJcmYR3yBcjFSPwBTNo IVfpMWTzPnApDT6vRTpio6 DelHWhuTfyOHBHHaHcI8Jk zVSvB6keKBF4 GROSS DESCRIPTION (test v1eugIGeRVGcvPNnPxWrWC code = 3366) YtBWNxe2cfBRIvcQQqDnJs MzNcZnRuYmpcdWMxXGRlZm Fdc8tgj202tLOdd6ovDYPv LuM6mHStTWTnmRCpA645b5 bml9fegrZlhIF7SNQhWYB3 YTwgkaReftD6VDkecKNkMm Y8VSpcuyDiJRfycfInedFp Jqz1HNAuE023KVB4oKbdy5 dgKJQ1CNFqOJWeNqPxUn5u qHQnY711YLSqZAWGKOHfhZ o9HDFseyGxpqTmdTMSx949 B951g1uhXLJktxQrwSpRxe mkg6uqC911IDUwpINaqqNd IpIzHGJyoHKfzWW3RVFnTS 2jwgckUyZiXU5tfidbZbZp DZ8ubqy1HdDxZA6dbxixMq FxGGbgOVHkdjbwQBXcz8Fa ililRM8lW7Ouw6I4zC1yeY FsVHEckQVeZdYxUASrwv2s wSZtCCgdd7SpXHK4euL4nR FrxSLdOTKfYX97Yexpa4Bn XghfRDV0DMJgtrWsc2Xpn7 wjIbJtnkYkA6iuV3LrRQKd CQSdACTbWnFdroCow3Usv9 GkzVPzfLw8r8frAQFfLTFa gGvfl5yzCWN8JJShR6T5mT Vag9ueVQrsFSQdgJO5dxng AAquQXXwriM9urboITyoZJ EpfOY7zoohMJaeVQXqCmM9 yiwnROgjGGIiEON2XEfji5 52RVO1LFauRoddXKcvQSFd bmNvbnRccGduZGVjXHBsYW luXHBsYWluXGYwXGZzMjRc oRwlkYgteB3uSzGzOnNdRW yuFK5bQUEtS4xqbRCrRRQs XHFuK1epJfDobA8koXgfYH xmczIwIEEuICBSZWNlaXZl ADLiyhZvc7VzZBbzuiDfKO ZmiOOlXIYfCKYiMCHxNW20 F1IsglDgXFhjGCHiYLLcqZ 4uED72vSDperXgpsFlEcxo o1UrxTErOejvyMG4DoVnkq JrCMT4TP2ypLjouqS4nZFr uKEiWsWcE19ucfRmCB0wKA G7idbeUiE0oLD7nyUwLzBf F10hiI4fV8IeWTXzz6AyPC jySE4gfA3uCEwqvFBzTRUq PVYfsRm4PLHrXLRgjzCxm2 HzcKk5iDMxVMetZYJllS0b jI8aHAKbHWLnandxZTFqTv 5bMFHwA3IsnlUlGAiaFPEv hs4ieWxrNPcrUhQqHMJobM zqSDMcxUlmkdIfcnZvAP3g WUPlV0Nol2Xcm89qkgRaWj HjECWoABWgJ8FtbXJdRfBj aXMgYSAwLjIgeCAwLjIgeC LgWdCwW29guXXvDARjyrya nHijj4OuZADcWSitOJ94DI doaWNoIGlzIGZpbHRlcmVk ZFGkGKZjaYZjkPD3QHPrmV 3bvK14bsEjmsYHYA4vtRQz OEIlwmMQwHonpmIPury9KU xsZXMsIFBBLCBIVCAoQVND UClccGFyfQ== MICROSCOPIC DESCRIPTION r9dpeFLwEYZekKM0OqJeMF (test code = 3371) Yjp9evn2QhqPKhpQEzNGyh eCKkzjSoua84kUE8eX08VD 8cDONiJxF9VTEkvrG6Hvy5 GUHxRKEycRJcL383h8tsn1 ntvySqnEZ1eXpwFXPpKFPq OUyyNRUeQcXiGTRhDk4yiG VkLlxwYXJ9 SPECIAL STUDIES (test z6bzyUYiTJQxj7zzKNDwuO code = 3376) FuZzEwMzNcZnRuYmpcdWMx IUfwmcClOBunn2AvB2XaZp AwMFxhbnNpXGRlZmxhbmcx QIKbULV1vaPdAMBiQRozMN MmPRlaAm9pzDHteRmpYgEh CKWgz8halaZVncpahFu5d5 hcRDWwFiY0oOCzBTkpP8xj ohRkcCLoH1LqnFTvbOo1b4 afDkEnZeF3oZSeYVyuU3wj zeBsnGHtJYJaZJi3eD84CW MbvD3jwXKlLPliusCuOjC8 ORpbTXJlLyE2LQZxuLRoYV MfX1ioDLHfCNhvTOHbNMsn nUYzWIF2jTdcf0Q7tROukU RrzLtnUiXaIhDgJtTSh9Gf QWl2eZwkJ5WzXXIzEgU4fZ QgUGFyYWdyYXBoIEZvbnQ7 qGhjhkZrc27trJNiMWLdDC NfLoIhfLzmKKYhIZQLf2Uc iSrrQMI7lJy3mQdbCwpxHV A8Zwz0LQ9eop91emh0kXcz DQUobgjmWeV8YIysRJQbkb kaULp7VXrrLVYroPM7TDBj pOMjC0WhRKEgTY8jaof4FE Y9JSotOWHsZzY5HKYouFOw QVQgpRlzFKhml466PMF1Dl ElST3xT7Dqh1X4kT6wqYIq WKSbhFBbAsGdZTRdwl6fiU NtDOhxg9KtMWM4dxJ9eLHl bNIcRZDmEY69Gpqpz4WnHt vwi2YfM92lwNJ2JRyti7cl PR0bNhY3utUiFHrml0npcP 3tAaY5QXmfEA6tFA2fFYYf sA6luiirFRXbXdEylbvlAP CezAivqyMoJb5gtGubLEP5 MKdjL3jceX8cYfV4ZNrkD1 ivoE9sUYw6MQymwSU3JWMo pE8nPO5xgnnbb2ntKRrpCO voOXEskoS5oyG5WLGhaNTc P0XwpN3nPIXnBK9ahzdbr7 wsUJP3RTfhYKHjBYQ0WoFu HWHvn5Clsji7MhUgp1NtxU CvFUgbA72dy974ZJGhasRg H0mxuPOqcojjpPSvnsmhTO bvyjQ1DWKiNGYdELetIKIz XGZzMjJcbGFuZzEwMzNcaG ljaFxmMVxkYmNoXGYxXGxv Q9ibFuTwU3DoPZChCzPzQG csMNjxpPPncSSsgUD3iN5b VK5vWPHjnSLiI3MgFBHarg TuaSRfTFV5aLPpxERyGG7c RUwdhIWyb7vcr7EnV1cevE zjhGV9JV8cQPEmZFYdZZqx i9InoV1hGzxsqXFxgywmGA xmczIyXGxhbmcxMDMzXGhp T2ulDrVfKPYcsQheXPfnr7 NoXGYxXGNmMlxmczIyXGx0 cmNoXHBhclxwYXJccGxhaW 7uLiEeCnTxZggoML0pISMo M7gflQDfAUEgZUGvL2rhXw NzwO5vpDveKYgrXeTdNkOo RjNIv232at0sRUMatCIcmb ABhTBunQ8lEBkvQDmiQAnh oQBhWLwnh1anSOCxk2x3jT PdVZIpiyAdt3fbFYzlduMb VIIilHAnyPXtZRVzx19fGN iayRoatJnnHIGea0FxjDaz p9OcOgKaECcyj1ShP64qyC JvbCBzbGlkZXMgcnVuIGFs a06ph7mpROCiHxQ8qQSnyM A4pQAalSWdv4JhoFqsUKEv n8oqKFEnil7kyoljjMCxn3 ZrnN3ycfjrXFxfiFObetHo XLNzf1h8uEZnHHPrWZWqKY fbnWg8LJVpk390vg3hhjG7 vNYkVYQ9KWxuARFgISMleb UgZXZhbHVhdGVkXHBsYWlu XGYxXGZzMjJcbGFuZzEwMz NcaGljaFxmMVxkYmNoXGYx QGouS9jhZbCsX1UbWUDhRf EwgSLqU4nnvUIzTWWlCCbn XGYxXGZzMjJcbGFuZzEwMz NcaGljaFxmMVxkYmNoXGYx PDykR5snJwLpH7PlNOVyAn IgIFxwbGFpblxmMVxmczIy CBifcdkgMTYqXWznT5xsKj XlNBFbnIzxHFnvi7ErUFKu OYFgIdoajfIwVVk9dpCoAB BhclxwbGFpblxmMVxmczIy LOheezuoIBQaAMfuI6guLb XdPARyoJuqYLkga9GhDPMi XGNmMlxmczIyIEltbXVub2 myy0KaH3ikjTfnlWP6SPUa R6rdkUWbqIP1SWI6jP8oTW wqceMrGJAdj4MrCCEhGTFb FfQ2fK9fZBA9SaPZzEdgRO BsYWluXGYxXGZzMjJcbGFu ZzEwMzNcaGljaFxmMVxkYm XfAAFqMFreI9ncTwFzU1Yk GVDzAoLfaSdsKBchBKx2Vs xwbGFpblxmMVxmczIyXGxh naalLOHcJMmdH1ymDpRwZH AzhAbgEVocu5DxBOIoURPj MlxmczIyIHMgTWVkaWNhbC YAKT77ESIhDPVjcGethK9x nGJYMCSveaK6q0V3EWqxDW HqBLg4LYfscuSlCVIfvS6g YGQjIX9uMKe0ikMjSHYcu3 WfHV2yEVGwaDLhJPZ9NJLw h4BhX1Jhw5JxSDYsZPNmcq 1lcuOxIdHAwWRmAFNhra32 MSOtBZ9yW4inJYExNIQkop WgyXYsx9NrJTDjjTZ8fUZw HF8SFyKCt02hNNNsYYQZqh LpAOFljOguoNU4edX2tE9c LiBUaGUgRkRBIGhhcyBkZX Qcrr9bpcAeFJRbRPLpd8Cf sQSipRFvmrRnV8Jyh2KlTC Irxg60EUesaGPneg42RW9l S1Hgg3MxgH9dFSieHLMeq8 ArcRPrcSXfEUBvk5TyZ2su vmlgTIuuhEKbqY9nVVCsBA l3YFMae9KqARGxt8UdFoMj akYzOEToRXGtLSTypN20HT X2xGqfcYpspjTrVN9zPLHy sjTiDEJfCPPllZ0mVPlfyf OrLPAaarU5z3O7JGglLTDw hkNlOjfhOJT8wuNstrZ1rL PmY4axhqmgLFhnJHHfp6Ko qP1fqNCOeNIyc8WcrVHoaL JUeQDaAX2ulcZzPH6qIRM6 ODggKENMSUEtODgpIGFzIH T8DMjsJqfmLWL3ftMwVMHu i5DyDGeaV9jmW97foFcmvT r3yDZjjKtfeSGtpIOfRKAq cfO7n7R3IIYvd1FgxnezPG BsYWluXGYyXGZzMjJcbGFu ZzEwMzNcaGljaFxmMlxkYm KkJFIzWEpuL7emVeQkLyMu AxbvZTD5jL== Gross assessment was [facility] performed at ([facility], = 2777) Department of Pathology, [address] [place] [phone], Technical component was [facility] performed at ([facility], = 2778) Department of Pathology, [address] [place] [address], Professional component [facility] was performed at ([facility], code = 2779) Department of Pathology, [address] [place] [address], [facility] [id number] 14:24:00 Test Item Value Reference Range Interpretation Comments Case Report (test code Surgical Pathology = 104) Report Case: [id number] Authorizing Provider: Sarkis Laboy, Collected: 10/01/2020 09:43 AM Ordering Location: [address] Received: 10/01/2020 01:48 PM Pathologist: Pa Peters MD Specimens: A) - Biopsy, Gastric, random biopsy B) - Gastric, gastric erythema biopsy DIAGNOSIS (test code = [id number] 3220) FuZzEwMzNcZnRuYmpcdWMx IHtccnRmMVxlcGljOTIwMl tylbUxDJUwxIFgX2Enhjtd KAsiWA1lCW2ggLsjfWCevX QtSUQlQtMmo8wxp353wXCb e1auLXGPccsxhHp7ePttI1 6wg6U3FnulI05bqQNiRKzk bGFpblxmczIwIEEuIFNUT0 9FC5djWXOICuZHJPWZSyGX U8YZCMwXGQ1YF23JFVnfOd cVVDWIKOM2JELcinb4AGOx CQPKJvDMWLhiHJGWV3QLDF dJVEggTUlMRCBDSFJPTklD ABvWNGJPGJXSTBkMY7CDNH SFXxOWRzVvQf1IXIwaLQ6Z HEQCEH9AJXMDUYZOZAuHQ4 tPKLRtduw2MOQqDLLEYEyV MJjEPE6XO85WCOBYCXOEQI 4XTIFdY3vNX00PCnDRVyKC VElWRSBHQVNUUklUSVMgV0 wHFBKDN9YUMRXMY5SSZndV DOyuTHWmvTZpCT9dC8CACW mFFfUWZGQKLesgD2DWAR4c EzNGRAYEBhFdPe5AWGxnDI VQLB4JHRGVGQjMOA8YG7YE DBPLN0kxCHIywQJxWG5kTx OJOQNPPmDlBm5FJVHYU7SJ NIHIPCULYwTATHGJCN0XJE AcjNXnUTPwgiLZGpGVET0L QUNILCBFUllUSEVNQSwgRU 8JI9DWD6YQLkICWZSZH8AT SDEOY9DGSNDFVtfnVSPbnE GdWQ9uM8sYLjUJCdTTYPZG E5DfB4wSUWOSHWjKVADLYv 3STDLtVF8OT7VFQfOrN6IC VFJJVElTIEFORCBWRVJZIE ZCH4KZXUZFHQoYLJCHRQHg ciAgICAgICAgICAgICAgLS OBJF5NJzUvYWHDFQFBWUAD F53HBOXBAC2OJZKMPJTDTV JUTFkgREVOVURFRCBXUElU RATFMZYJXNYlhrn7XJLuLG BXQVJUSElOIFNUQVJSWSBT VEFJTiBORUdBVElWRSBGT1 GaVR9oBZpOP9HNYZsYY2Nc C2PBBF7TD59WKRCbfox2CP MgFOATCElCNSzJXUFIK4Ph KK0VHDTSSL1BYANEPDHRKM bDH0nIGUVIUKBSJVSLHQTw Q2YnK4RDR4rFF39UWNHipa 59HIA6MnWvl4A6REB6BELq ERTzk6oqDKQdfMChSwZkFi NcZnRuYmpcdWMxXGRlZmYw g3fax793uLSbx7jkYSZmWa G4rEUjAJTvgNHnS357MHWj GXezh7vwz1FpJLEybFZzp8 M7NIUCegpetZh4zVhoF94x c8H8ShrzT2hlOEVrJGJjB6 WbLJ1qNTDtWmx6RQS8REL5 LBDuZZMdC8YkDG7cZZWxtT HeKEa1v6hqdVwpYFEvQBH2 w6hhTQauyuBmZW9xts2npV m1x4lsqgCtWKAyJXNhnVKF QCAhL0JiuEsuXv2xyNg6cZ nlQpnhLWM5Zfw5QC8pqw53 uvb2nOrlAQXcnxgqVqG9ZT ryBVGmcjowCIq0XBfdXDEj bZN7WNJbiJRyM4QcJZNlAN 2ftxv6WBX1BFgaMXJcEmM5 NDBcaGVhZGVyeTcyMFxmb2 04EOT5WeUgYL2dU5Tou4I8 cY7waWIpBUHcuTCuHdOhMN Ykwh1bhNLeEAvct1EiVHX9 ziR5xLXnoLShDZOhXiZ9VY jgLZ3unq42OYJbPTM1hl8p bGNccGdicmRyaGVhZFxwZ2 FiZTWih545ZDLtM5RhFPUr z2S8hgSlWnYgSQVysOJ7kj S1XMVyJC1ajxsif4kvDQel ESnnOWMfiqO4blT3USJjyM CqV8WwpK8lMRQkBM8clfkl e3mrQIJ9AAhfWGYgXAK5Fc BfYTUwg8Czbuo0RsOug3Es wFOeAIbkK96cd805LVSzwb FqI8yquUGkduqqbWOhimjv HWcummS8IZDbPIqwwwsoXM NaOGjaH8gaXmIuTKYjdMav XAjih6YiGMUkNROaKaJdrK NjPROfLpj1WKZwmWOqMQHd RaKnW4gdaxxuXnYJTSCqi9 pwK0spaQSZiZDxJ5CfODet dwYuKKwpNXytFHAhGBV2IZ 28AIhrODTbpr31 CPT Code(s) (test code n6dsnFIgXLKmpQN8AlClER = 335) Uxb1tcu4OhzRGmlHBgTUud qMXvtlLlkv49sXR2bK29UC 2xMBFzEcC9XFLrveM2Htw1 VHXlQEWxgAOdW286p2ivz2 chmwUlvZW6aCnaFYRfGTOn YWluXGZzMjAgODgzMDUgWC QvWPO5RLFxHcGVAylwTFR3 CLINICAL HISTORY (test j2vdaRQjFSCuqMX9FaNaEE code = 3356) Xxh9qep8ZscPYarEKrEAtf xJKrtuZmjx76uEF6rQ57PB 1oEJHmLfS6XDZsihY1Acx3 WQWgGLWkxFSyR799z4vkl9 gmexKgrYF7sVnzFGKwBMRt PJppCRDlKhFppFVpCN4iBS Bhcn0= SPECIMEN SOURCE (test f7aisVLnUGJmnBA8YwTqZG code = 3377) Hjc6pxv6QbgWTcfWUpWHff nBLfjaIjpa18iLB0oA19LG 0fUHKiIsG9PQBiodY9Xto4 ICTrRKVgdLDbI292b6jbv7 mnmeFxxIP3xFsaBFIuTQLf GUkaGMSkScTlAH6jQCxhr4 XmhKPbnShwRQWBCbCoH6Uz eSJnC7toZXG7 GROSS DESCRIPTION (test q9pgbRFrZBBsgHOkLeLtLT code = 3366) YoCZZie9guSBYhoNTcMkYw MzNcZnRuYmpcdWMxXGRlZm Vpe6vsc049jPWcl2yaEXOp GpC1pHArNUUisMMwH180b2 xfi0yphxKrqNJ9SLCrVUV4 MGzvtbEereY3NHmarOAbFw E7OEpsdoQcZJvoweBezrAq Vbf9BXEkF540GII1iSjva2 hfVKJ2AJGvNZOxDbTlKu6v kAUaZ774LPEtNWAKHCSmtX y7BBCacmVapyPquAZCq352 A553b1aoNPDqcmVqvCfRyz ipd3mrA788IZFqcMAtsxIv JzDvDJYxoKOxuEZ6BQKtHU 1rmzqfFeJjWI9lsykrWhHg FO4hmkr5YqGnKS6vygbhYg LuPLlyQCWhjkyjAJBys1Jn dexoCL2yP4Wlm6W8mY7unK UlAGOpmMFdUbUhJPLhod1w mTUkOSccg7IiVDF2ybG5sQ YcuVTySEPeSX75Eepiq5Op GkhtFBG0VENwixUqq3Xfq7 ubRiPkuhYdM4njU5CzZWFt PQAlWXAyLoVglcZgv4Gdn7 AnoEJqxXj0x4phPRJfKDTq lOjyz2toSEW4LUEiX1U9nE Evf7bfDYgrRNNeuXD5msjn YNovYMZyizG0hrajGVvkXX DniFT9jssvJCkvMACaTgU9 rkadOVpxPKLoHSL6QChyu8 86QNE6WYrsAbyiLSluLHTf bmNvbnRccGduZGVjXHBsYW luXHBsYWluXGYwXGZzMjRc kPhuyIiieU0vSoPnBnJkFN ykTT5xMZZoN1buqMAcVDJk OURvX5hkLtJfnW1luEvfCM xmczIwIEEuICBSZWNlaXZl PAFaitCot8FnODxagfFcUM BgnXYyAREdGBRhIWBdNC19 N5OcheQpPDctCVRqJGIraH 8bMN62uTPdtyAvhgGcYghp h9TbaNQyWyppbTE6YeTgjf BkKMA3SD9kaUozkmW6cQBg uPHpMcQeT35izoTvRQ9gWQ U4npsmEoW3yDZ5pjAmWlWq G33atT3tT3OaURDue5IgBO nfKS9rnX4nJZrrhKIfIJHt JBFllPq1JLUtMOZzdrNoa9 AwmOr1oWZwFVxmITBrxU4c pE7xKZBrNGCcoopbMTQcLq 2yQVJrC3FrehYvOGalTMGi fy1rqZvlBKbkCtVkYRUjrH wdMRDtuOxnaxYykzUuPP2m VDDgE6Duf5Nxi29uhgTgJy MxXBLzZVXjQ7RlrYCpUzDl aXMgYSAwLjIgeCAwLjIgeC TkMfEyP58gqOZlNSIjymfm dFtzc8ReWBGrJOkrEK73JC doaWNoIGlzIGZpbHRlcmVk JJMtEFZqpGApwPR0ZBFmkF 6czU67qeEwdjWACR8bmIHh OXNmygMVdNzhlhXFxyy6SQ xsZXMsIFBBLCBIVCAoQVND UClccGFyfQ== MICROSCOPIC DESCRIPTION i1epaRMtOCQrtUA7BsDrZA (test code = 3371) Efm4ocu8EomPPagIQuDJeo fDGjteJaef04zES3bJ24GQ 1wPJMfJyH5QWIumiC1Xnp9 VFRqBLIzxAUfT249h9kfk1 oeetZqcBN8lSwiZXYqFLOu NOmaTHNuWfAbBSSyGx1ueW VkLlxwYXJ9 SPECIAL STUDIES (test z7jfzIVmUBWak8odGAUndE code = 3376) FuZzEwMzNcZnRuYmpcdWMx QVvcxdYhXUkys6NrZ8FxJq AwMFxhbnNpXGRlZmxhbmcx FBGxZXG0xqHlXGAgSHzpQN PiCUlzRd0qjQUokIbiMrDl FXGiz9azqdQZlecqjWe1d2 iuTDKsYbA6vFUnFAhdS8nn hrFmbCGnA4DgmKFsiQr3n1 yeGwMbGiW9fKYhWIcjO7nj wgBxpUUnRWSgKXz9kD68YU PorG1ylNVzOZnybrHhOzG1 JPjuATKoYoO1MNPaxCRtVW XrK8ugSGNsAEfsICSjVZld fKKtDWJ7oYlqt5I3eBUcoA PueYntUlBqGkSyVzMNd1Eb OHm7fDzzY6LzIWCdMtX3mF QgUGFyYWdyYXBoIEZvbnQ7 aLnquuSqe43akVJxPIYvBQ IhPnMnfKorVSZcFEXZn3Sm mZeoAJS4yBj7lInvJxkhZZ Z4Vlk0MW0whb21geu2qVsm PPRtzxzlGuH6PImuLJBhwg eoRQb3UQwgIAHqrZZ9KXSk cZYaV3MqQNSiFY0yymm4FL A5GCotYDAvPbH9XWOnuKTv NZQiyUqjWSzoz493TBC0Yq KnBY7oZ9Gwn8L1dP8ifPTw QPZbnGFfWwXmIYVvew5pqP BvQEdqb9FdQIS3gwV5tKMp pSUmPHBhYJ97Qdkzp4XjKb bqi5OjO45zkTK8EFvcw9zb ME9xHzM0hzCiFMefs1luuC 6kQbC9VTucWA3xOL1dJIJu tI1oqupdSDIqWdKrwgwoUH IbeEqetfQfOi9lkUzcOWE9 OIscY4prrM4cKpX1GJneY2 qqvL4pZHx4EXlebHO1HUNy gR2oQT3xgufgh9ghUQooSI inFQBibgH5fwB5SAOlkXIk D3NcrW3sKWTpPR0qetntu0 qlJLO7QVxxOQGqTXQ5DaQi XISem8Ynmwe6GuLoe3UjlA FzIZezQ76fi577INCblcOq C1arhMUwllpkjQPqzjskSJ bvsxA0LRVtMOEoUMwnQBZy XGZzMjJcbGFuZzEwMzNcaG ljaFxmMVxkYmNoXGYxXGxv K7yaPpFzE0QdEHNnGpKbJI zrRJamuEJzuCTpnZM9gV6w EI8gTTJzwKZtE3KlCFQade ZorVKcZKP2jFRqxMWhPA9c OObafEAfr0ebr7RrR7hacF ehyKJ1OZ5qPONyWEJoASpv a6HnaD9kLviqdWPdnovwZQ xmczIyXGxhbmcxMDMzXGhp Q1auLjKoMQPgpWpoLHpqh2 NoXGYxXGNmMlxmczIyXGx0 cmNoXHBhclxwYXJccGxhaW 3qHmAgHhZiZwwmOW5hNWDh L2eavHXjHUSkBPGsS9ruTv XjcM7aeIwwVYfaWdEnGrJu FzLUn046mp4eMWWupCGncp TAbURciU3bHMhyRAytUZkk aXGiOSlcr9zhEIOjv0x0fL CbKZAusjWqt5otXGcjfiIt ZCIbxXCcfSUpTBUcs12kFQ fsiUdpaHqePPWyx0IsjNxm y5GbUhAgWClnh1NaM11jvC JvbCBzbGlkZXMgcnVuIGFs l90sv0boRLXdGsV3cUQcmW L1bPGziEQwz3OuqOktBKPy r7fmAPXjvx7ldhlehWAgf8 EywE1afskpJZqqtHVyrdCs OMFql5q7qERtZKDzEDBjTA fjpXh5VTZey148oo9sprM7 gUOaWUC0CQuoWXDfWFYvkg UgZXZhbHVhdGVkXHBsYWlu XGYxXGZzMjJcbGFuZzEwMz NcaGljaFxmMVxkYmNoXGYx GZedZ2qjJtEcP8WlKYSrEb CveLUjZ3hnhPLnFNNsJNuj XGYxXGZzMjJcbGFuZzEwMz NcaGljaFxmMVxkYmNoXGYx APflR4bpChPtU6XfKNCbYg IgIFxwbGFpblxmMVxmczIy INgxrbizDUCzWXecU5jqCg BmQLLubSdyXKpnt4HhOOBm FURwUfqjybWkYLn9kuYfQO BhclxwbGFpblxmMVxmczIy NUzszarsZKJbMUkeG4pjKn IhINAqdOliQHgzm9SfXTQq XGNmMlxmczIyIEltbXVub2 ogo8QgZ4ayqLzsuWK0NVYq U7zeyIEefQD6UFN8hR9wPU yzkbBqIRKij7WsCYWcFSSu BmJ9kX1nXFZ5QqLJyGuvKO BsYWluXGYxXGZzMjJcbGFu ZzEwMzNcaGljaFxmMVxkYm VaCACfKPaaG9opMxDsM2So UPQnBfNggGjmTVtoBXu8Gl xwbGFpblxmMVxmczIyXGxh gspyTRAbCYycU1cnXeXeNH ZidDkbEFbet0HuQFQnTZWv MlxmczIyIHMgTWVkaWNhbC SZLS06HEGuDWPadXlebO6d pFHIKSHskbI6e9T2UHqrOW OmRAb9IJcrsjEcEKMslO1v TYUyQX5pTAw9uwIuUFOqk7 ReAI0rIKXaqGFfUSV5PECx u2ZiU4Agx2PvGNCqFJHsrk 1wcwCdKrHOmQQrNHDydu45 SZGnBM4gI2xmAQOoPZCwwh MhxJYsh8FeJCVlhPZ1rZPx AW6HAmXHo66qUXOmQKGCln OyKMXxfJnyuDT2llZ0cS8p LiBUaGUgRkRBIGhhcyBkZX Nlks0xjxHvNLLhVAXru2Li gZAnjIPkinCtI2Gjt9XuIQ Yfch75SXuazRRvzb98CQ1z Q1Dat8CpzR7yZOjaRNAaj4 GncOHxpCBuHOWwc0ZuM2lx dmfkQMtkwAOmwQ6xPOTlMT g2AVBdh7DjDUUox3BmWcDe dpLcWJNeKZBgHZYkwG60OJ R2mNtldCtvpqLwWA2jPNTs onDvBSMuMOOeyV5hZNfhia ZeAREhrmD1j5D0XSuzWQSi spTpUlvfOCM1aqMmaoQ2fG EoH4kppkjjOAqtPNTbl7Od yN6fsNVWpXCxc9MwwNXzhX DGbLUvDK5gbnRgJB6sTXW9 ODggKENMSUEtODgpIGFzIH U0FHsyGlqtAZZ8oyQeHBHm p0SmQSgwU6daG07hrYodnS f4wHYxwAogvSOvzGGmAOPp deM4l6F3TSKro1XwstroAO BsYWluXGYyXGZzMjJcbGFu ZzEwMzNcaGljaFxmMlxkYm BaJYYvFZvrB1auObWrEeUt IzqrEWJ4gT== Gross assessment was [facility] performed at ([facility], = 2777) Department of Pathology, [address] [place] [address], Technical component was [facility] performed at ([facility], = 2778) Department of Pathology, [address] [place] [address], Professional component [facility] was performed at ([facility], code = 2779) Department of Pathology, [address] [place] [address], [facility] [id number] 14:24:00 Test Item Value Reference Range Interpretation Comments Case Report (test code Surgical Pathology = 104) Report Case: [id number] Authorizing Provider: Sarkis Laboy, Collected: 10/01/2020 09:43 AM Ordering Location: [address] Received: 10/01/2020 01:48 PM Pathologist: Pa Peters MD Specimens: A) - Biopsy, Gastric, random biopsy B) - Gastric, gastric erythema biopsy DIAGNOSIS (test code = [id number] 3220) FuZzEwMzNcZnRuYmpcdWMx IHtccnRmMVxlcGljOTIwMl ciyoErMJNydQTrP2Iksawb KYvtBP8pBX2sjAvdvVTacZ ByNPBrFnJqr2atv431gXZy z4shUFJKupmedNq3nCrfX7 5nr7V2OlspH33tpGXnKRwn bGFpblxmczIwIEEuIFNUT0 6BU8oqFQRVCqRWANOCYlJC T1EBTAkJWX4BR97HGAsuTf dOTLPBEAT1OKApxrh4LQFz NRTTFjJARXjhEWFFV5AFLQ dJVEggTUlMRCBDSFJPTklD EPqKJADRCHWHPYcBY7RSGQ WKXeJNEmByCt3ITRkqYJ9W LQDWLX9ERJQGXZFSVImPC3 nKGIDyusr5VXHhLARMLZwW DYoXWG8SK78EVSNDFALXGW 4SDAMcX2iSU26LImDYFsQA VElWRSBHQVNUUklUSVMgV0 aHZRTUZ8PKNUXYB6FKYikG CMeeTJDebFBlJY8wY0VWYI mPQeAUTIGRMwdtB2ILIY5n PpPMHFJPRyHfTf1ZILjwVR EGQP1BKQRDYRdDLN7CB1RJ FEDTM1yxPHCnjSJgJF4yVe THBXKEWoGcGh8KFKTWV8TZ QYXDYTYLHzQAPELPST8LVC OyjRZpNAXjuqCJIaAIUV6M QUNILCBFUllUSEVNQSwgRU 7SF3ZVF2CVCgOUETHVZ3KA OKFJH2AJSWXJHlicZSDjsO UrDU8uN8vCKrLVAdYNOTYH P9CgP8gREHOMOUxENOSPGx 4ESHSxDG9XC8WBXbSsB6QF VFJJVElTIEFORCBWRVJZIE VPN3DDXQYZWGoXQMWKXTWv ciAgICAgICAgICAgICAgLS PDQB1MWpWqAEYYQSLBIRQK M99RQWYPTC3QHEEJDMMZDJ JUTFkgREVOVURFRCBXUElU JVJJJHULZPBvotq6UKMlGY BXQVJUSElOIFNUQVJSWSBT VEFJTiBORUdBVElWRSBGT1 RwPE4tPBlYZ3CXHHjIY2Cw N2KGYD3LM37ZDUQrcsu2IF YkMSGGFFnVXErHJIVKD0Gt RB9NLEYTVE0JROSJMCEGHN wCB3gNVAMUMUVJVHQVTRXo W1DhQ4MBS0aWD04WLQJdbp 77JAE9FeHhz4V6CCE6ELVk KFJrs2nsKDMmhLZmUsZlPq NcZnRuYmpcdWMxXGRlZmYw t0mqa124mKZgg5ulNBGhSg F4pIXhKMZnwMJxW081TQZg YIlzs8web3YiAVOzyTYbw9 A4HWTUgrbzwBn9jEehA60v t8G1IlhyF8ygHXIaSCMlC4 HxPX3wMZSoUpk2MKW1HTX5 MFQoDRZqJ5ReBE1vOEQkmY LqIUd6y8zxgVuwRGFkMAJ3 c3qwFObbfoUgOF2tot2fhZ n9j1cgkpNxTJUfDUTuhITZ CXArX1VdcDyxIn6pbDv8jW swUrujLFW2Lyv6XC9hwx10 jgu9cAijPINobwsuFfA5DG ocXWAwqpoaBNq2QOsuRCBg iRD7GMRwvKJsJ4DbVOEdBV 0bife1BYP6TRexWXVvDkY7 NDBcaGVhZGVyeTcyMFxmb2 51SCA5ToEyFL2sR4Kuk9P5 wX9dvWGqYPWjxMLzGaIwPZ Mufp3nyCBjRMgdy0MwYTS1 wbL7cZZksZMdBOOiBhI8KR wcBB6uew85CMMcNHW8fp7c bGNccGdicmRyaGVhZFxwZ2 JqNGKbc527HYYfW1VoZFMr q5C4iaRwRpXlXYBbuPI7cz E7UFJpFJ2pgouod9idMQjz AJxdGTUjbyT6zqA4YAIrfQ AkL9IzuI6zXPBpBR6snger d8vmESI8DMwoMEOdXXE4Tv UhJRFuv4Njmrl6LdGco4Co kYMmIKlvY31xv688XLGdid OjU7cocJRuspkifDNgjmml JVdwyhD7HLDyDYljjtmrMC MeNPliS0irZfGaOYSjsUem YPhgc7EzOWJaNAQbBxZuuV UwACDtBmb7SAIujWUuFKZv JyAtL7lfqkovAeDEKXWwd1 wgS8aqtQRLgEPtY6OhOIlg ypRqIEwiDDavNOGgDAP4HY 18VRxsFCZaal74 CPT Code(s) (test code v3vsoIAoUJRpnVA0NkCtLC = 0008) Bip7iad1DkrPGtkNBfTSrh eQIdjeVjnu51fTB8iP91ER 3eIDGgRdC4QRHweeU5Lvh7 ZJYfLCIbeWRvT275o0ajn6 zukiHqxXA6mNhnZQOxKLLh YWluXGZzMjAgODgzMDUgWC AsPMH4LMLiJgEYFlvfTEE7 CLINICAL HISTORY (test o4ckfKGmYMHtdGX6TfJvTA code = 3356) Gig2fyb8VeaHZcaEOfHLrh mWNhkcSgqe71uWV0vP26TW 2bUBNaDlJ7DFJowtC4Xwz1 PSNeYHAneWWeW435m0vew8 xxnkTkwFD0rLivHAWePMDl UEloGFAkSmZxnAZaUZ4gTS Bhcn0= SPECIMEN SOURCE (test o0pgxHJlSJMbfQW7GkIiQK code = 3377) Yfy9qfg7KnrSEsgDGhMFkb eXYopfHeja14tON9mC96VH 1tTQFmJdU6FOSiwrA4Swg7 TXVxDXBtgOQeK549y1wqq7 jiixAndNK5sKzbBHUwXELf BDnaIKKoLeEtJN5hPAfej5 TqgBLekIivEWAIFiIhP4Id sGYuD2toVBE5 GROSS DESCRIPTION (test x9oepSIxXNPcrRJmEqYiPL code = 3366) DrIPIws6jrPGYqvFCnQzQa MzNcZnRuYmpcdWMxXGRlZm Anw8btt695rJGwh4jzYAYx LxL0rDMkIIDlyMNnP905t4 ngf6zbzjCqmDR1PTAnMYS2 FGqoxpCxvjW1URiygQPiBr O5VJkolqNbYXlsbtTpiwXb Evq5NQHmR650ZLZ1vBoni5 aaBMU9IPVyUOVxFiPeRq9g oWYmE482GEZeACQYPXLjuQ o4YMDyodPvqzNhtOEKr004 O833r0qgPGRlkuCcaNiDtl vds0sfK599IMErhQIsgzOd JuNzNRTejQGgeJE0JFIoMW 5fayivLaYlBZ5sdqyuNqQq XD7ykyq3ZlKcLB0vlpwsJo FjFDqpXQPjknkvOTZkc4Fd eiyvYG1jH5Phi0I9oS5hzN DeJUFvaHDdNwLhRYFwwc1l uEAgEDrfu1EzGYS4gzM8tG QkfNPkXUJuLI79Gzdge7Yz OxrfGCM1FWZtkdQdv7Oxb5 jyQpDbqcPmD2clI6FgDXXc ZIXfAHTdVcNjxmUsx3Ple8 YtoWEfrMm2x8pjWMRiDYQl vJlwl9buPUE6FQVmX6S4yZ Bak6ijVIoxAJBckDZ1idrd KFssWKCovqR8sbvySYlpQS XvzQJ0dmetYMzyGFPhKqS5 wosjRDdiOWXaWHM6NEamr6 19QTH7NRozKxgoDEieKISx bmNvbnRccGduZGVjXHBsYW luXHBsYWluXGYwXGZzMjRc nLqcdHiyrX7zZqTxQwZsFA rdLG2tTKHaJ2tfzKUdUNKk IBXiR4lzXaWvsV2rnEzgTS xmczIwIEEuICBSZWNlaXZl QRCvwwZiv1NwBKnyaeGiNZ MzgJVqVRNnYDFsDHXaKG23 I2DartTeATusOKUfRQKpnH 6zAR22jXPbomKkwrZiXmzv s3EzrRSwJhzjzHJ0ZuEtsx PuDFN3CJ7auMzmgnK8qIZp dIZdPoJnK26msyYxFN7tBO S8apgnNmZ3iTQ2quGmGsTw K77uhN3uG0RdNFAeh0SxHJ faDH4thT3yDRhckOTbMGNp TAZvbTx3NWLpVKSzmtXby8 VsqHt7sIDeABwyXWQquB0j aG0yFNIcBIZfohstBLNvWi 2jYWAiL7EabsOaJZijKRMj ja0euJypYTuvZsCwRIVxiS ebZUWetBeqytSxslFxVO5x CELjT9Fog2Axu50xpjEjBq JrGOWpSEUuS6LdnSYrTkSx aXMgYSAwLjIgeCAwLjIgeC KkYxMtL68hlKNkBETqwlrt bSuet7SiUQObZBgrZA82CF doaWNoIGlzIGZpbHRlcmVk ECClYGNtsLLjdUW5FAXtjM 5bsF03ccOnqnGZRV6fiEZk ADYxghNVyAjymkKLxkd9RL xsZXMsIFBBLCBIVCAoQVND UClccGFyfQ== MICROSCOPIC DESCRIPTION l0fktBCwUWDtyQG6JhEvBN (test code = 3371) Skh5tgb4YykNRudREjXXsp yPJlbuZuir75yZE1rI61ET 4oUFNjCkA0KPIqcsY3Rlx1 HHRnCPTlvIRnX581h7par6 ytzlSgiMJ6uGorSZOxTSIt KEvyYIIoMlAeBZCwOj8zmX VkLlxwYXJ9 SPECIAL STUDIES (test b6xvrRMzVAXqk3uySADgvU code = 3376) FuZzEwMzNcZnRuYmpcdWMx SQblmoEqHChwb3HkN2WhWe AwMFxhbnNpXGRlZmxhbmcx OWHwBDP3jiNaMQJpELkqOK MjDMmyTi0kbEPnmTvuQmZm EQMzk7tgcaALfebteIh1d3 yvIEKsKaQ7xEMbFOeaS8lb gjLtrNYjO4CmwNHqsHs1p9 scZdBhYrC9nXChRVktU0za poDpwJHsMZMjBGi9rF66TH BegU0jiOWpLPjdzjObDlT6 KOkmPMBeBnM9RJVoiOQvSG VrK2exOTVpEJfaRHWqTYze gEZpPLW0yTcdg6F3gQUdiU RzpIooKaHaNkInDiGQi3Hd FOa0fFcaT5FlPVHjZaM6pV QgUGFyYWdyYXBoIEZvbnQ7 rCszijZix30zoIVuKVFgYY NaGxIhyXyqDVJcCWOLj6Hg oCpiZTM3uVr6iLnbAvzlTC P2Dar8FA4qkj51goo2fEup DGXhwkmkYlK4ITxnYKLyod idFDz6XSqaPKByvHT0RCEv pLPaQ8KuJTCgOE0yjjr4HM H8TEkaNGNuXoP9CWYjkCXq LBEasMgdPIvpf207SGC7Ya HgWH3zJ1Pnn7K3aT3jeTEc PCMxxTLpYkUcSUWdnc9dpW BlCRpxu4FoBDE1fcH6xLOz oXNhFUJsGJ86Rnaew0JxAh qye1VoC19fuOQ5UPlar1rr YP9wNqH3lnLpSCfky6aacX 2qTiY3WLqdQD0lMN3nYKGw xA1hsermAPHwOqNkxbfuMD SyzOypskFeJg2waUvsONA3 GWjkR2mduI2tWxR8JMnhF1 hfrF7iZYl6CUionLF0XFRd eL3wHF7btbzxk0srBKllBY pwYGAivgJ2cgY5SJXfoZUm B0YbnC9pAZLyDG1kuorrf7 mjTXQ2NSgsUTEhEQW1FcZl CVBqd0Qdzuk6GyZch8EnoA KiVYooC06na482PXTvkhXu S1qckJZtrwykvPKbcefaPK jdztU3BABhSTMqQVptIBRn XGZzMjJcbGFuZzEwMzNcaG ljaFxmMVxkYmNoXGYxXGxv L6tcFgVvN6AaIZKaFvEmPP qrBNyypMIfaZSagRB4nW4n TL8jWEEztAGcV5PiLJGzmz WvjJBxJCH7tRTbeBLoNQ4c CDtlcJJmp4ksn3CsJ6eulJ iwzIA7UI4lRHJjFGNyXWpq l3DnhB4uAqheoPIxwnihXS xmczIyXGxhbmcxMDMzXGhp S0wbVgHlUTOieGzfQOfoa4 NoXGYxXGNmMlxmczIyXGx0 cmNoXHBhclxwYXJccGxhaW 9bQoWrWvEvSxfwSF5qMIMl R5cfdJKdPYClBEBaS2jeCg TvsJ2knFlqKGeeRsRiIaUw MmLJo542dx7iKJWnbGWjaw UIoBLpqU0dPBusVOhxKYqt tNDbIEtul4eyAARrk0m4lA WlFNMbfqWtu9liWWpunhQu JGTfcSRinZJrCUNkq78kPV uieCdquKmyBTKek4NzlTpc n8DrRgZwPUjun7OvU29gnD JvbCBzbGlkZXMgcnVuIGFs v13sw7uqIUAaZzK9yLVwgZ X3aQUdmZGpq9DhkRntUAHf n2qeQIFmdk8chhhoxZDcm5 QuyJ1rqnphKPwiqNKtkfDs JUOcm3a8bDFsFOJzBGLjCI ktuSb9TGVus372gp6jfnM4 bYIxKFZ7RHhaJKReHSHxye UgZXZhbHVhdGVkXHBsYWlu XGYxXGZzMjJcbGFuZzEwMz NcaGljaFxmMVxkYmNoXGYx EHluB0kjAiJdO8BySZXkVw ZwdGWyQ4xgtROoQFKlZZht XGYxXGZzMjJcbGFuZzEwMz NcaGljaFxmMVxkYmNoXGYx FUtbA5txGgNhR5MfMLYiCk IgIFxwbGFpblxmMVxmczIy YEypjhboYHEnADuvX9kbLc BtLTOpjGprLCsgl8NiYVPs DAFbTutzdbPaXAv4suIvHL BhclxwbGFpblxmMVxmczIy RNlphggoKJLoPJybM4dmEr BlOLNqvVxwACaze7NgTIYf XGNmMlxmczIyIEltbXVub2 aol7SvG8tolCmddFS7TEPk P8oinNMnhPL1OGZ8pJ1rKC wglcQgLEPcn7NnACInQIXk ZbF5fB9oJRM8UcAArMqnRP BsYWluXGYxXGZzMjJcbGFu ZzEwMzNcaGljaFxmMVxkYm RiQAHeTWieD0utAgAeH6Gb PWYwMoHdkSgfOOlcCGr5Yq xwbGFpblxmMVxmczIyXGxh lkwbZREkGOzpK6viFiBsVZ XhqKebQMcec9KjLGWmHPOp MlxmczIyIHMgTWVkaWNhbC HEAJ27KFAfGKTbmYgkoR0x pUZRCJMsubJ4z2R8AHmnYB MuMTe4COqwclQoHHYcoC1s GEPtEM9tVZe5ytBhSBJsh5 BnFW4eJYQryVGfHBG3ODGj o1HyT7Mjj1CiOJWdEYIrrf 8sxdFlCqSWpIJzRAErbq99 HUGsBX0fD1bgYPKeUYRjqc WdzHMky6ZeWTJqlGU9xRTv EY6HNwFBt17gJQFoADOKor JjMOLduPhcjOX4lgC8pJ4m LiBUaGUgRkRBIGhhcyBkZX Rmpi8dmeNwHTTaZUFoz4If gJNwhJLqpfQaV6Jlj8ElIZ Cwnh92WYupsHOtks74OH4k R3Bcw7YehI9dQPieUWJjd1 OerAVhgOBlYGYii6JlH6ux gwibVHmpyXAbtL0pIZOoMM a4MUAvi2FhYZCfy3WuKeIm sfIbABSnAQKuPFNpvE50ZC B3lKtvoUyxrcAvZY0bIIZq ayTpUXHxHNRgvM8jTEmykz KoCSDyybA7i4Y3HGugZJKt vdZhQnpyMBD5tePxffM3cF VpB7wgfcpaPScnXMNdk4Mn vH9gyIDWnREot4GezNLyvD UIoHGvDT5vbrVzBH6uKYV9 ODggKENMSUEtODgpIGFzIH U3VXngVcijTGW9rbQkMFTd w8AsQOisQ0lzM53fmHnydR k6aLNrjNyzpIGlnGKaMNVj nhJ3f1S2NAUik5ZrdatyBJ BsYWluXGYyXGZzMjJcbGFu ZzEwMzNcaGljaFxmMlxkYm DrXCKrPNqzN3wvVyOhXoAh WmhlAND9zA== Gross assessment was [facility] performed at ([facility], = 2777) Department of Pathology, [address] [place] [address], Technical component was [facility] performed at ([facility], = 2778) Department of Pathology, [address] [place] [address], Professional component [facility] was performed at ([facility], code = 2779) Department of Pathology, [address] [place], [place] [address], [facility] [id number] 14:24:00Surgical Pathology Report Case: [id number] Authorizing Provider: Sarkis Laboy, Collected: 10/01/2020 09:43 AM OrderingLocation: [place] [address] ccu Received: 10/01/2020 01:48 PM Pathologist: Pa [...] OR CARCINOMA Signing Pathologist Direct Phone Line: [phone] signed by Pa Peters MD on 10/02/2020 at 2:24 [id number] X 2, 21642 A4mfvusrV. GastricB. GastricA. Received in formalin labeled the [...] and submitted in toto in B1.XIMENA Bhakta, QUINTIN (ASCP)Performed.The interpretation of this case included the use of immunohistochemistry or special stains.Control Slides Examined: In-house known positive controls were evaluated along with the test tissue. These control slides run alongside of the patients sample show appropriate staining. Internal positive and negative controls when available are evaluated Immunohistochemistry technical testing was performed at [facility], Pathology Laboratory where it was [...] qualified to perform high complexity clinical laboratory testing.[facility], Department of Pathology, [address] [place] [address], [facility], [address] [place] [address], [facility], Department of Pathology, [address] [place] [address], MPRN-GLUCOSE [id number] 11:33:00 Test Item Value Reference Range Interpretation Comments POC-GLUCOSE METER 124 mg/dL 70-110 H : TESTED A T [facility] 6720 (BEAKER) (test code = [facility], 1538) 97008: Marketing Operations Analyst/Techni min ID = [id number] for Be noit, Emmanuelaira POCT-GLUCOSE [id number] 08:15:00 Test Item Value Reference Range Interpretation Comments POC-GLUCOSE METER 106 mg/dL 70-110 : TESTED A T [facility] 6720 (BEAKER) (test code = [facility], 153) 80897: Marketing Operations Analyst/Techni min ID = [id number] for Be noit, Kyaira Comprehensive metabolic [id number] 05:17:00 Test Item Value Reference Range Interpretation Comments Protein, Total (test 6.1 See_Comment [Autom ated code = 2885-2) message] The system which generated this result transmit altagracia reference range : 6.0 - 8.3 gm/dL . The reference range was not u sed to interpret th is result as normal/abnormal . Albumin (test code = 2.6 g/dL 3.5-5 L 22082-4) Alkaline Phosphatase 85 U/L 40-150 (test code = 6768-6) Total Bilirubin (test 0.3 mg/dL 0.2-1.2 code = 1975-2) Sodium (test code = 133 meq/L 136-145 L 2951-2) Potassium (test code 4.0 meq/L 3.5-5.1 = 2823-3) Chloride (test code = 106 meq/L 98-107 2074-0) CO2 (test code = 17 meq/L 22-29 L 2027-) BUN (test code = 37 mg/dL 7-21 H 3094-0) Creatinine (test code 1.94 mg/dL 0.57-1.25 H = 2160-0) Glucose (test code = 116 mg/dL 70-105 H 2345-7) Calcium (test code = 7.7 mg/dL 8.4-10.2 L 98558-8) AST (test code = 17 U/L 5-34 1920-8) ALT (test code = 9 U/L 6-55 1742-6) EGFR (test code = 35 mL/min/1.73 [place] [address]-3) NOT ACCURATE CREATININE CLEARANCE IN PREDICTING GLOMERULAR FILTRATION RATE . ESTIMATED GFR I S NOT APPLICABLE FOR DIALYSIS PATIEN ELIANA (test code = ELIANA) Marketing Operations Analyst ID - EDASI Lab Interpretation Abnormal (test code = 97114-6) [facility] [id number] 05:17:00 Test Item Value Reference Range Interpretation Comments Protein, Total (test 6.1 See_Comment [Autom ated code = 2885-2) message] The system which generated this result transmit altagracia reference range : 6.0 - 8.3 gm/dL . The reference range was not u sed to interpret th is result as normal/abnormal . Albumin (test code = 2.6 g/dL 3.5-5 L 76482-6) Alkaline Phosphatase 85 U/L 40-150 (test code = 6768-6) Total Bilirubin (test 0.3 mg/dL 0.2-1.2 code = 1974-2) Sodium (test code = 133 meq/L 136-145 [...] (test code = 7.7 mg/dL 8.4-10.2 L 32006-7) AST (test code = 17 U/L -34 1920-8) ALT (test code = 9 U/L 1742-6) EGFR (test code = 35 mL/min/1.73 [place] [address]-4) NOT ACCURATE CREATININE CLEARANCE IN PREDICTING GLOMERULAR FILTRATION RATE . ESTIMATED GFR I S NOT APPLICABLE FOR DIALYSIS PATIEN ELIANA (test code = ELIANA) Marketing Operations Analyst ID - EDASI Lab Interpretation Abnormal (test code = 67342-8) [facility] [id number] 05:17:00 Test Item Value Reference Range Interpretation Comments Protein, Total (test 6.1 See_Comment [Autom ated code = 2885-2) message] The system which generated this result transmit altagracia reference range : 6.0 - 8.3 gm/dL . The reference range was not u sed to interpret th is result as normal/abnormal . Albumin (test code = 2.6 g/dL 3.5-5 L 85103-4) Alkaline Phosphatase 85 U/L 40-150 (test code [...] (test code = 7.7 mg/dL 8.4-10.2 L 06211-4) AST (test code = 17 U/L -34 0-8) ALT (test code = 9 U/L 55 1742-6) EGFR (test code = 35 mL/min/1.73 [place] [address]-6) NOT ACCURATE CREATININE CLEARANCE IN PREDICTING GLOMERULAR FILTRATION RATE . ESTIMATED GFR I S NOT APPLICABLE FOR DIALYSIS PATIEN TS. ELIANA (test code = ELIANA) Marketing Operations Analyst ID - EDASI Lab Interpretation Abnormal (test code = 65992-3) [facility] metabolic [id number] 05:17:00 Test Item Value Reference Range Interpretation Comments Protein, Total (test 6.1 See_Comment [Autom ated code = 2885-2) message] The system which generated this result transmit altagracia reference range : 6.0 - 8.3 gm/dL . The reference range was not u sed to interpret th is result as normal/abnormal . Albumin (test code = 2.6 g/dL 3.5-5 L 36056-6) Alkaline Phosphatase 85 U/L 40-150 (test code [...] (test code = 7.7 mg/dL 8.4-10.2 L 67892-4) AST (test code = 17 U/L 5-34 1920-8) ALT (test code = 9 U/L 6-55 1742-6) EGFR (test code = 35 mL/min/1.73 [place] [address]-8) NOT ACCURATE CREATININE CLEARANCE IN PREDICTING GLOMERULAR FILTRATION RATE . ESTIMATED GFR I S NOT APPLICABLE FOR DIALYSIS PATIEN TS. ELIANA (test code = ELIANA) Marketing Operations Analyst ID - EDASI Lab Interpretation Abnormal (test code = 48971-1) [facility] [id number] 05:17:00 Test Item Value Reference Range Interpretation Comments Protein, Total (test 6.1 See_Comment [Autom ated code = 2885-2) message] The system which generated this result transmit altagracia reference range : 6.0 - 8.3 gm/dL . The reference range was not u sed to interpret th is result as normal/abnormal . Albumin (test code = 2.6 g/dL 3.5-5 L 71219-0) Alkaline Phosphatase 85 U/L 40-150 (test code [...] (test code = 7.7 mg/dL 8.4-10.2 L 01743-7) AST (test code = 17 U/L 5-34 1920-8) ALT (test code = 9 U/L 6-55 1742-6) EGFR (test code = 35 mL/min/1.73 [place] [address]-5) NOT ACCURATE CREATININE CLEARANCE IN PREDICTING GLOMERULAR FILTRATION RATE . ESTIMATED GFR I S NOT APPLICABLE FOR DIALYSIS PATIEN TSRhys ELIANA (test code = ELIANA) Marketing Operations Analyst ID - EDASI Lab Interpretation Abnormal (test code = 77096-9) [facility]Com[facility] metabolic [id number] 05:17:00 Test Item Value Reference Range Interpretation Comments Protein, Total (test 6.1 See_Comment [Autom ated code = 2885-2) message] The system which generated this result transmit altagracia reference range : 6.0 - 8.3 gm/dL . The reference range was not u sed to interpret th is result as normal/abnormal . Albumin (test code = 2.6 g/dL 3.5-5 L 79717-8) Alkaline Phosphatase 85 U/L 40-150 (test code = 6768-6) Total Bilirubin (test 0.3 mg/dL 0.2-1.2 code = 1974-2) Sodium (test code = 133 meq/L 136-145 [...] (test code = 7.7 mg/dL 8.4-10.2 L 12165-8) AST (test code = 17 U/L 5-34 1920-8) ALT (test code = 9 U/L 6-55 1742-6) EGFR (test code = 35 mL/min/1.73 [place] [address]-4) NOT ACCURATE CREATININE CLEARANCE IN PREDICTING GLOMERULAR FILTRATION RATE . ESTIMATED GFR I S NOT APPLICABLE FOR DIALYSIS PATIEN ELIANA (test code = ELIANA) Marketing Operations Analyst ID - EDASI Lab Interpretation Abnormal (test code = 13782-8) [facility]COMPREHENSIVE METABOLIC [id number] 05:17:00 Test Item Value Reference Range Interpretation [...] S NOT APPLICABLE FOR DIALYSIS PATIEN TS. Marketing Operations Analyst ID - EDASICBC W/PLT COUNT & AUTO [id number] 04:32:00 Test Item Value Reference Range Interpretation [...] PERCENT (BEAKER) (test code = 2801) POCT-GLUCOSE [id number] 21:36:00 Test Item Value Reference Range Interpretation Comments POC-GLUCOSE METER 146 mg/dL 70-110 H : TESTED A T [facility] (BEAKER) (test code = DEVON Serrato [facility], 1538) [address]: Marketing Operations Analyst/Techni min ID = [id number] for Johana Vasquez Hemoglobin [id number] 15:28:00 Test Item Value Reference Range Interpretation Comments Hemoglobin A1C (test code = 4548-4) 5.6 % 4.3-6.1 Lab Interpretation (test code = Normal 39193-8) [facility] Hospital[facility] [id number] 15:28:00 Test Item Value Reference Range Interpretation Comments Hemoglobin A1C (test code = 4548-4) 5.6 % 4.3-6.1 Lab Interpretation (test code = Normal 42455-1) [facility] Hospital[facility] [id number] 15:28:00 Test Item Value Reference Range Interpretation Comments Hemoglobin A1C (test code = 4548-4) 5.6 % 4.3-6.1 Lab Interpretation (test code = Normal 15853-5) [facility] HospitalH[facility] [id number] 15:28:00 Test Item Value Reference Range Interpretation Comments Hemoglobin A1C (test code = 4548-4) 5.6 % 4.3-6.1 Lab Interpretation (test code = Normal 56432-2) [facility] Hospital[facility] [id number] 15:28:00 Test Item Value Reference Range Interpretation Comments Hemoglobin A1C (test code = 4548-4) 5.6 % 4.3-6.1 Lab Interpretation (test code = Normal 95510-8) [facility] Hospital[facility] [id number] 15:28:00 Test Item Value Reference Range Interpretation Comments Hemoglobin A1C (test code = 4548-4) 5.6 % 4.3-6.1 Lab Interpretation (test code = Normal 91694-5) [facility] HospitalHEMOGLOBIN [id number] 15:28:00 Test Item Value Reference Range Interpretation Comments HEMOGLOBIN A1C (BEAKER) (test code = 5.6 % 4.3-6.1 368) CBC W/PLT COUNT & AUTO [id number] 12:44:00 Test Item Value Reference Range Interpretation [...] PERCENT (BEAKER) (test code = 2801) POCT-GLUCOSE [id number] 11:11:00 Test Item Value Reference Range Interpretation Comments POC-GLUCOSE METER 125 mg/dL 70-110 H : TESTED A T [facility] (BEAKER) (test code = DEVON M[place], 1538) [address]: Marketing Operations Analyst/Techni min ID = [id number] for BE LL, BEAULA Vancomycin level, [id number] 10:39:00 Test Item Value Reference Range Interpretation Comments Vancomycin Rm (test 4.8 ug/mL code = 06156-4) ELIANA (test code = Reference Range: No ELIANA) NormalsOperator ID - COLBY [facility] HospitalVan[facility] level, [id number] 10:39:00 Test Item Value Reference Range Interpretation Comments Vancomycin Rm (test 4.8 ug/mL code = 30393-1) ELIANA (test code = Reference Range: No ELIANA) NormalsOperator ID - [facility], [id number] 10:39:00 Test Item Value Reference Range Interpretation Comments Vancomycin Rm (test 4.8 ug/mL code = 97727-6) ELIANA (test code = Reference Range: No ELIANA) NormalsOperator ID - [facility], [id number] 10:39:00 Test Item Value Reference Range Interpretation Comments Vancomycin Rm (test 4.8 ug/mL code = 05817-2) ELIANA (test code = Reference Range: No ELIANA) NormalsOperator ID - [facility]ycin [facility], [id number] 10:39:00 Test Item Value Reference Range Interpretation Comments Vancomycin Rm (test 4.8 ug/mL code = 87045-4) ELIANA (test code = Reference Range: No ELIANA) NormalsOperator PR - [facility] Hospitalycin [facility], [id number] 10:39:00 Test Item Value Reference Range Interpretation Comments Vancomycin Rm (test 4.8 ug/mL code = 10905-8) ELIANA (test code = Reference Range: No ELIANA) NormalsOperator ID - [facility] LEVEL, [id number] 10:39:00 Test Item Value Reference Range Interpretation Comments VANCOMYCIN RANDOM (BEAKER) (test 4.8 ug/mL code = 523) Reference Range: No NormalsOperator [facility] CPOCT-GLUCOSE [id number] 08:38:00 Test Item Value Reference Range Interpretation Comments POC-GLUCOSE METER 119 mg/dL 70-110 H : TESTED A T [facility] (BEAKER) (test code = DEVON [place], 1538) [address]: Marketing Operations Analyst/Techni min ID = [id number] for BARBARA FRIEDMAN SARS-CoV2/RT-PCR (Asymptomatic ONLY)2020-10-01 08:13:00 Test Item Value Reference Range Interpretation Comments SARS-COV2/RT-PCR Negative Not Detected, (test code = Negative, See 32340-7) external report for linked test SARS-COV-2 [facility] (test code = 54799-2) ELIANA (test code = Negative result for [...] of the Act. Fact Sheet for Healthcare Providers:https://www.COSMIC COLORl.[employer]/sites/default/f dorys/product/documents/F act_Sheet_HC_Providers_L yyw_FJWQ-IsE-0.pdf Fact Sheet for Healthcare Patients:https://www.[employer]/sites/default/fi les/product/documents/Fa ct_Sheet_Patients_Lyra_S ARS-CoV-2.pdf Performing Laboratory:[facility] [place] [address] [facility] (Asymptomatic ONLY)2020-10-01 08:13:00 Test Item Value Reference Range Interpretation Comments SARS-COV2/RT-PCR Negative Not Detected, (test code = Negative, See 54564-8) external report for linked test SARS-COV-2 [facility] (test code = 89507-0) ELIANA (test code = Negative result for [...] of the Act. Fact Sheet for Healthcare Providers:https://www.Enstratius idel.[employer]/sites/default/f dorys/product/documents/F act_Sheet_HC_Providers_L qjy_YJHT-OjA-0.pdf Fact Sheet for Healthcare Patients:https://www.james del.com/sites/default/fi les/product/documents/Fa ct_Sheet_Patients_Lyra_S ARS-CoV-2.pdf Performing Laboratory:[facility], [place] [address] [place], [place] [address]ARS-CoV2/RT-PCR (Asymptomatic ONLY)2020-10-01 08:13:00 Test Item Value Reference Range Interpretation Comments SARS-COV2/RT-PCR Negative Not Detected, (test code = Negative, See 90316-5) external report for linked test SARS-COV-2 [facility] (test code = 95804-8) ELIANA (test code = Negative result for [...] of the Act. Fact Sheet for Healthcare Providers:https://www.Enstratius idenextSociety[employer]/sites/default/f dorys/product/documents/F act_Sheet_HC_Providers_L fur_DCGS-KhU-6.pdf Fact Sheet for Healthcare Patients:https://www.Jirafe del.com/sites/default/fi les/product/documents/Fa ct_Sheet_Patients_Lyra_S ARS-CoV-2.pdf Performing Laboratory:[facility] [place] [address] [facility]/RT-PCR (Asymptomatic ONLY)2020-10-01 08:13:00 Test Item Value Reference Range Interpretation Comments SARS-COV2/RT-PCR Negative Not Detected, (test code = Negative, See 86767-5) external report for linked test SARS-COV-2 [facility] (test code = 65201-7) ELIANA (test code = Negative result for [...] of the Act. Fact Sheet for Healthcare Providers:https://www.[employer]/sites/default/f dorys/product/documents/F act_Sheet_HC_Providers_L sff_KJPY-AnQ-6.pdf Fact Sheet for Healthcare Patients:https://www.Avocado Entertainment.com/sites/default/fi les/product/documents/Fa ct_Sheet_Patients_Ly_S ARS-CoV-2.pdf Performing Laboratory:[facility] [place] [address] [facility]/RT-PCR (Asymptomatic ONLY)2020-10-01 08:13:00 Test Item Value Reference Range Interpretation Comments SARS-COV2/RT-PCR Negative Not Detected, (test code = Negative, See 81883-2) external report for linked test SARS-COV-2 [facility] (test code = 27696-8) ELIANA (test code = Negative result for [...] of the Act. Fact Sheet for Healthcare Providers:https://www.Enstratius idel.[employer]/sites/default/f dorys/product/documents/F act_Sheet_HC_Providers_L igj_GMOT-VoI-7.pdf Fact Sheet for Healthcare Patients:https://www.[employer]/sites/default/fi les/product/documents/Fa ct_Sheet_Patients_Lyra_S ARS-CoV-2.pdf Performing Laboratory:[facility] [place] [address] [facility]/RT-PCR (Asymptomatic ONLY)2020-10-01 08:13:00 Test Item Value Reference Range Interpretation Comments SARS-COV2/RT-PCR Negative Not Detected, (test code = Negative, See 50935-5) external report for linked test SARS-COV-2 [facility] (test code = 40534-2) ELIANA (test code = Negative result for [...] of the Act. Fact Sheet for Healthcare Providers:https://www.[employer]ilo/sites/default/f dorys/product/documents/F act_Sheet_HC_Providers_L ppl_PUHL-CwG-7.pdf Fact Sheet for Healthcare Patients:https://www.[employer]/sites/default/fi les/product/documents/Fa ct_Sheet_Patients_Lyra_S ARS-CoV-2.pdf Performing Laboratory:[facility] [place] [address] [facility]ARS-COV2/RT-PCR ([facility])2020-10-01 08:13:00 Test Item Value Reference Range Interpretation Comments SARS-COV2/RT-PCR (test Negative Not Detected, Negative, code = 7762780) See external report for linked test SARS-COV-[address] [facility] (test code = 0097877) Negative result for this test determines that [...] 564(g) of the Act.Fact Sheet for Healthcare Providers:https://www.[employer]/sites/default/files/product/documents/Fact_Shee m_TM_Hmlcamvmo_Jsvz_ERJO-BlP-5.pdfFact Sheet for Healthcare Patients:https://www.[employer]/sites/default/files/product/ documents/Nacu_Lijpn_Lhcgquvu_Eldn_LDCK-PcK-3.pdfPerforming Laboratory:[facility], [place] [id number] 06:20:00 Test Item Value Reference Range Interpretation Comments Ferritin (test code = 61.09 ng/mL 5-275 2276-4) ELIANA (test code = ELIANA) Marketing Operations Analyst ID - PIAYA L Lab Interpretation (test Normal code = 76769-0) [facility] HospitalVitamin B12 and [id number] 06:20:00 Test Item Value Reference Range Interpretation Comments Vitamin B12 (test 267 pg/mL 213-816 code = 2132-9) Folate (test code = 11.30 ng/mL See_Comment [Automa altagracia 2284-8) message] The system which generated this result transmit altagracia reference range : >=7.00. The reference range was not used to interpret this result as normal/abnormal . ELIANA (test code = ELIANA) Marketing Operations Analyst ID - PIAYA L Lab Interpretation Normal (test code = 51645-7) [facility] HospitalFerritin2021-03-19 06:20:00 Test Item Value Reference Range Interpretation Comments Ferritin (test code = 61.09 ng/mL 5-275 2276-4) ELIANA (test code = ELIANA) Marketing Operations Analyst ID - PIAYA L Lab Interpretation (test Normal code = 02350-9) [facility] HospitalVitamin B12 and [id number] 06:20:00 Test Item Value Reference Range Interpretation Comments Vitamin B12 (test 267 pg/mL 213-816 code = 2132-9) Folate (test code = 11.30 ng/mL See_Comment [Automa altagracia 2284-8) message] The system which generated this result transmit altagracia reference range : >=7.00. The reference range was not used to interpret this result as normal/abnormal . ELIANA (test code = ELIANA) Marketing Operations Analyst ID - PIAYA L Lab Interpretation Normal (test code = 88206-5) [facility] HospitalFerritin2021-[facility]-19 06:20:00 Test Item Value Reference Range Interpretation Comments Ferritin (test code = 61.09 ng/mL 5-275 2276-4) ELIANA (test code = ELIANA) Marketing Operations Analyst ID - PIAYA L Lab Interpretation (test Normal code = 92158-3) [facility] HospitalVitamin B12 and [id number] 06:20:00 Test Item Value Reference Range Interpretation Comments Vitamin B12 (test 267 pg/mL 213-816 code = 2132-9) Folate (test code = 11.30 ng/mL See_Comment [Automa altagracia 2284-8) message] The system which generated this result transmit altagracia reference range : >=7.00. The reference range was not used to interpret this result as normal/abnormal . ELIANA (test code = ELIANA) Marketing Operations Analyst ID - PIAYA L Lab Interpretation Normal (test code = 43435-5) [facility]in[facility] 06:20:00 Test Item Value Reference Range Interpretation Comments Ferritin (test code = 61.09 ng/mL 5-275 2276-4) ELIANA (test code = ELIANA) Marketing Operations Analyst ID - PIAYA L Lab Interpretation (test Normal code = 29395-3) [facility] HospitalVit[facility] and [id number] 06:20:00 Test Item Value Reference Range Interpretation Comments Vitamin B12 (test 267 pg/mL 213-816 code = 2132-9) Folate (test code = 11.30 ng/mL See_Comment [Automa altagracia 2284-8) message] The system which generated this result transmit altagracia reference range : >=7.00. The reference range was not used to interpret this result as normal/abnormal . ELIANA (test code = ELIANA) Marketing Operations Analyst ID - PIAYA L Lab Interpretation Normal (test code = 77565-3) [facility] HospitalFerritin20[facility] 06:20:00 Test Item Value Reference Range Interpretation Comments Ferritin (test code = 61.09 ng/mL 5-275 2276-4) ELIANA (test code = ELIANA) Marketing Operations Analyst ID - PIEAGLE L Lab Interpretation (test Normal code = 02302-5) [facility] HospitalVitamin B12 and [id number] 06:20:00 Test Item Value Reference Range Interpretation Comments Vitamin B12 (test 267 pg/mL 213-816 code = 2132-9) Folate (test code = 11.30 ng/mL See_Comment [Automa altagracia 2284-8) message] The system which generated this result transmit altagracia reference range : >=7.00. The reference range was not used to interpret this result as normal/abnormal . ELIANA (test code = ELIANA) Marketing Operations Analyst ID - PIEAGLE L Lab Interpretation Normal (test code = 14716-3) [facility] HospitalFer[facility]in[facility] 06:20:00 Test Item Value Reference Range Interpretation Comments Ferritin (test code = 61.09 ng/mL 5-275 2276-4) ELIANA (test code = ELIANA) Marketing Operations Analyst ID - PIAYA L Lab Interpretation (test Normal code = 27649-4) [facility] HospitalVit[facility]12 and [id number] 06:20:00 Test Item Value Reference Range Interpretation Comments Vitamin B12 (test 267 pg/mL 213-816 code = 2132-9) Folate (test code = 11.30 ng/mL See_Comment [Automa altagracia 2284-8) message] The system which generated this result transmit altagracia reference range : >=7.00. The reference range was not used to interpret this result as normal/abnormal . ELIANA (test code = ELIANA) Marketing Operations Analyst ID - PIAYA L Lab Interpretation Normal (test code = 02134-5) [facility] HospitalFERRITIN2021-[facility]-19 06:20:00 Test Item Value Reference Range Interpretation Comments FERRITIN (BEAKER) (test code = 61.09 ng/mL 5.00-275.00 361) Marketing Operations Analyst ID - PIAYA LVITAMIN B12 AND [id number] 06:20:00 Test Item Value Reference Range Interpretation Comments VITAMIN B12 267 pg/mL 213-816 (BEAKER) (test code = 774) FOLATE (BEAKER) 11.30 ng/mL See_Comment [Automated message] (test code = 362) The system which generated this result transmitted ref erence range: >=7.00. The reference range was not used to interpr et this result as normal/abnormal . Marketing Operations Analyst ORION Vazquez, TIBC, % sat. (without ferritin)2020-10-01 06:04:00 Test Item Value Reference Range Interpretation Comments Iron (test code = 2498-4) 17.0 ug/dL 40-160 L TIBC (test code = 2500-7) 323 ug/dL 250-450 Iron % Saturation (test 5 % 20-55 L code = 2502-3) ELIANA (test code = ELIANA) Marketing Operations Analyst ID - ASHLEIGH White Lab Interpretation (test Abnormal code = 63097-1) [facility], TIBC, % sat. (without ferritin)2020-10-01 06:04:00 Test Item Value Reference Range Interpretation Comments Iron (test code = 2498-4) 17.0 ug/dL 40-160 L TIBC (test code = 2500-7) 323 ug/dL 250-450 Iron % Saturation (test 5 % 20-55 L code = 2502-3) ELIANA (test code = ELIANA) Marketing Operations Analyst ID - STEPHENIEEAGLE White Lab Interpretation (test Abnormal code = 02834-6) [facility], TIBC, % sat. (without ferritin)2020-10-01 06:04:00 Test Item Value Reference Range Interpretation Comments Iron (test code = 2498-4) 17.0 ug/dL 40-160 L TIBC (test code = 2500-7) 323 ug/dL 250-450 Iron % Saturation (test 5 % 20-55 L code = 2502-3) ELIANA (test code = ELIANA) Marketing Operations Analyst ID - ASHLEIGH White Lab Interpretation (test Abnormal code = 57557-5) [facility], TIBC, % sat. (without ferritin)2020-10-01 06:04:00 Test Item Value Reference Range Interpretation Comments Iron (test code = 2498-4) 17.0 ug/dL 40-160 L TIBC (test code = 2500-7) 323 ug/dL 250-450 Iron % Saturation (test 5 % 20-55 L code = 2502-3) ELIANA (test code = ELIANA) Marketing Operations Analyst ID - PIAYA L Lab Interpretation (test Abnormal code = 97508-1) [facility], TIBC, % sat. (without ferritin)2020-10-01 06:04:00 Test Item Value Reference Range Interpretation Comments Iron (test code = 2498-4) 17.0 ug/dL 40-160 L TIBC (test code = 2500-7) 323 ug/dL 250-450 Iron % Saturation (test 5 % 20-55 L code = 2502-3) ELIANA (test code = ELIANA) Marketing Operations Analyst ID - PIAYA L Lab Interpretation (test Abnormal code = 98390-4) [facility], TIBC, % sat. (without ferritin)2020-10-01 06:04:00 Test Item Value Reference Range Interpretation Comments Iron (test code = 2498-4) 17.0 ug/dL 40-160 L TIBC (test code = 2500-7) 323 ug/dL 250-450 Iron % Saturation (test 5 % 20-55 L code = 2502-3) ELIANA (test code = ELIANA) Marketing Operations Analyst ID - PIAYA L Lab Interpretation (test Abnormal code = 10928-1) [facility], TIBC, % SAT. (WITHOUT FERRITIN)2020-10-01 06:04:00 Test Item Value Reference Range Interpretation Comments IRON (BEAKER) (test code = 547) 17.0 ug/dL 40.0-160.0 L TOTAL IRON BINDING CAPACITY 323 ug/dL 250-450 (BEAKER) (test code = 769) IRON % SATURATION (2) (BEAKER) 5 % 20-55 L (test code = 2590) Marketing Operations Analyst ID - PIAYA LPOCT-GLUCOSE [id number] 05:23:00 Test Item Value Reference Range Interpretation Comments POC-GLUCOSE METER 116 mg/dL 70-110 H : TESTED A T [facility] 6720 (BEAKER) (test code [facility], = 1538) 06162: Marketing Operations Analyst/Techni min ID = [id number] for JUNIE ALICIA CBC W/PLT COUNT & AUTO [id number] 03:26:00 Test Item Value Reference Range Interpretation [...] (BEAKER) (test code = 2801) COMPREHENSIVE METABOLIC [id number] 03:22:00 Test Item Value Reference Range Interpretation [...] S NOT APPLICABLE FOR DIALYSIS PATIEN TS. Marketing Operations Analyst ID - DBCBC W/PLT COUNT & AUTO [id number] 20:14:00 Test Item Value Reference Range Interpretation [...] PERCENT (BEAKER) (test code = 2801) POCT-GLUCOSE [id number] 20:12:00 Test Item Value Reference Range Interpretation Comments POC-GLUCOSE METER 134 mg/dL 70-110 H : TESTED A T [facility] (BEAKER) (test code [facility], = 1538) 87102: Marketing Operations Analyst/Techni min ID = [id number] for JUNIE ALICIA CBC (HEMOGRAM ONLY)2020-09-30 15:28:00 [...] 0-0 (BEAKER) (test code = 413) POCT-GLUCOSE [id number] 14:32:00 Test Item Value Reference Range Interpretation Comments POC-GLUCOSE METER 106 mg/dL 70-110 : TESTED A T [facility] [address] (BEAKER) (test code = CARLOSSON Serrato [facility], 1538) 10227: Marketing Operations Analyst/Techni min ID = [id number] for CHUY SWANN HEMOGLOBIN [id number] 11:57:00 Test Item Value Reference Range Interpretation Comments HEMOGLOBIN A1C (BEAKER) (test code = 5.6 % 4.3-6.1 368) U/S, ABDOMINAL, [id number] 11:53:00Abdomen limited area? Add comment if clarification is needed.->Right upper quadrantReason for exam:->liver cirrhosis; [facility]G : 1950 Sex: MFINAL [...] for chronic medical renal disease. Signed: Caity Hernadezeport Verified Date/Time: 09/30/2020 11:53:08 US abdomen [id number] 11:53:00Interface, External Ris In - 09/30/2020 11:55 [...] CAITY HERNADEZ MD on 09/30/2020 11:53 [facility] abdomen [id number] 11:53:00Interface, External Ris In - 09/30/2020 11:55 [...] CAITY HERNADEZ MD on 09/30/2020 11:53 [facility] abdomen [id number] 11:53:00Interface, External Ris In - 09/30/2020 11:55 [...] signedby: CAITY HERNADEZ MD on 09/30/2020 11:53 [facility] [id number] 11:53:00Interface, External Ris In - 09/30/2020 11:55 [...] signedby: CAITY HERNADEZ MD on 09/30/2020 11:53 [facility] [id number] 11:53:00Interface, External Ris In - 09/30/2020 11:55 [...] signedby: CAITY HERNADEZ MD on 09/30/2020 11:53 [facility] CenterUS abdomen [id number] 11:53:00Interface, External Ris In - 09/30/2020 11:55 [...] signedby: CAITY HERNADEZ MD on 09/30/2020 11:53 [facility] CenterUrinalysis w/Microscopic + Reflex to [id number] 10:53:00 Test Item Value Reference Range Interpretation Comments Color, UA (test code Light Yellow = 5778-6) Clarity, UA (test Clear code = 5767-9) Specific [place], UA 1.014 1.001-1.035 (test code = 5811-5) pH, UA (test code = 6.0 5.0-8.0 5803-2) Protein, UA (test 200 mg/dL Negative A code = 78530-5) Glucose, UA (test 50 mg/dL Negative A code = 365) Ketones, UA (test Negative Negative code = 2514-8) Bilirubin, UA (test Negative Negative code = 56548-4) Blood, UA (test code Small Negative A = 09342-2) Nitrite, UA (test Negative Negative code = 5802-4) Leukocytes, UA (test Negative Negative code = 5799-2) Urobilinogen, UA 0.2 mg/dL 0.2-1 (test code = 57055-9) RBC, UA (test code = 1 See_Comment [Autom ated 39913-9) message] The system which generated this result [...] . Bacteria, UA (test Few code = 83148-7) Mucus (test code = Few 8247-9) Squam Epithel, UA 1 See_Comment [Automate d (test code = 59908-2) messag e] The system which generated this result transmit altagracia reference range : /HPF. The reference range was not used to interpret this result as normal/abnormal . Hyaline Casts, UA 6 See_Comment [Automate d (test code = 33309-2) messag e] The system which generated this result transmit altagracia reference range : /LPF. The reference range was not used to interpret this result as normal/abnormal . Specimen Source (test code = 2795) ELIANA (test code = ELIANA) Marketing Operations Analyst ID - [auto]Marketing Operations Analyst ID - tech Lab Interpretation Abnormal (test code = 25938-6) [facility] Ref[facility] to Culture 2020-09-30 10:53:00 Test Item Value Reference Range Interpretation Comments Color, UA (test code Light Yellow = 5778-6) Clarity, UA (test Clear code = 5767-9) Specific [place], UA 1.014 1.001-1.035 (test code = 5811-5) pH, UA (test code = 6.0 5.0-8.0 5803-2) Protein, UA (test 200 mg/dL Negative A code = 96883-7) Glucose, UA (test 50 mg/dL Negative A code = 365) Ketones, UA (test Negative Negative code = 2514-8) Bilirubin, UA (test Negative Negative code = 34323-2) Blood, UA (test code Small Negative A = 13975-3) Nitrite, UA (test Negative Negative code = 5802-4) Leukocytes, UA (test Negative Negative code = 5799-2) Urobilinogen, UA 0.2 mg/dL 0.2-1 (test code = 49603-9) RBC, UA (test code = 1 See_Comment [Autom ated 50892-0) message] The system which generated this result [...] . Bacteria, UA (test Few code = 84048-3) Mucus (test code = Few 8247-9) Squam Epithel, UA 1 See_Comment [Automate d (test code = 65460-5) messag e] The system which generated this result transmit altagracia reference range : /HPF. The reference range was not used to interpret this result as normal/abnormal . Hyaline Casts, UA 6 See_Comment [Automate d (test code = 26204-5) messag e] The system which generated this result transmit altagracia reference range : /LPF. The reference range was not used to interpret this result as normal/abnormal . Specimen Source (test code = 2795) ELIANA (test code = ELIANA) Marketing Operations Analyst ID - [auto]Marketing Operations Analyst ID - tech Lab Interpretation Abnormal (test code = 43498-1) [facility] Reflex to Culture 2020-09-30 10:53:00 Test Item Value Reference Range Interpretation Comments Color, UA (test code Light Yellow = 5778-6) Clarity, UA (test Clear code = 5767-9) Specific [place], UA 1.014 1.001-1.035 (test code = 5811-5) pH, UA (test code = 6.0 5.0-8.0 5803-2) Protein, UA (test 200 mg/dL Negative A code = 12515-3) Glucose, UA (test 50 mg/dL Negative A code = 365) Ketones, UA (test Negative Negative code = 2514-8) Bilirubin, UA (test Negative Negative code = 40813-3) Blood, UA (test code Small Negative A = 69144-6) Nitrite, UA (test Negative Negative code = 5802-4) Leukocytes, UA (test Negative Negative code = 5799-2) Urobilinogen, UA 0.2 mg/dL 0.2-1 (test code = 41628-8) RBC, UA (test code = 1 See_Comment [Autom ated 90649-8) message] The system which generated this result [...] . Bacteria, UA (test Few code = 60589-5) Mucus (test code = Few 8247-9) Squam Epithel, UA 1 See_Comment [Automate d (test code = 13514-0) messag e] The system which generated this result transmit altagracia reference range : /HPF. The reference range was not used to interpret this result as normal/abnormal . Hyaline Casts, UA 6 See_Comment [Automate d (test code = 71668-7) messag e] The system which generated this result transmit altagracia reference range : /LPF. The reference range was not used to interpret this result as normal/abnormal . Specimen Source (test code = 2795) ELIANA (test code = ELIANA) Marketing Operations Analyst ID - [auto]Marketing Operations Analyst ID - tech Lab Interpretation Abnormal (test code = 37643-4) [facility] + Reflex to Culture 2020-09-30 10:53:00 Test Item Value Reference Range Interpretation Comments Color, UA (test code Light Yellow = 5778-6) Clarity, UA (test Clear code = 5767-9) Specific [place], UA 1.014 1.001-1.035 (test code = 5811-5) pH, UA (test code = 6.0 5.0-8.0 5803-2) Protein, UA (test 200 mg/dL Negative A code = 54002-6) Glucose, UA (test 50 mg/dL Negative A code = 365) Ketones, UA (test Negative Negative code = 2514-8) Bilirubin, UA (test Negative Negative code = 60520-0) Blood, UA (test code Small Negative A = 26757-9) Nitrite, UA (test Negative Negative code = 5802-4) Leukocytes, UA (test Negative Negative code = 5799-2) Urobilinogen, UA 0.2 mg/dL 0.2-1 (test code = 97318-7) RBC, UA (test code = 1 See_Comment [Autom ated 14156-6) message] The system which generated this result [...] . Bacteria, UA (test Few code = 77285-4) Mucus (test code = Few 8247-9) Squam Epithel, UA 1 See_Comment [Automate d (test code = 78830-4) messag e] The system which generated this result transmit altagracia reference range : /HPF. The reference range was not used to interpret this result as normal/abnormal . Hyaline Casts, UA 6 See_Comment [Automate d (test code = 10670-6) messag e] The system which generated this result transmit altagracia reference range : /LPF. The reference range was not used to interpret this result as normal/abnormal . Specimen Source (test code = 2795) ELIANA (test code = ELIANA) Marketing Operations Analyst ID - [auto]Marketing Operations Analyst ID - tech Lab Interpretation Abnormal (test code = 54691-0) [facility] + Reflex to Culture 2020-09-30 10:53:00 Test Item Value Reference Range Interpretation Comments Color, UA (test code Light Yellow = 5778-6) Clarity, UA (test Clear code = 5767-9) Specific [place], UA 1.014 1.001-1.035 (test code = 5811-5) pH, UA (test code = 6.0 5.0-8.0 5803-2) Protein, UA (test 200 mg/dL Negative A code = 36115-7) Glucose, UA (test 50 mg/dL Negative A code = 365) Ketones, UA (test Negative Negative code = 2514-8) Bilirubin, UA (test Negative Negative code = 60361-3) Blood, UA (test code Small Negative A = 11286-3) Nitrite, UA (test Negative Negative code = 5802-4) Leukocytes, UA (test Negative Negative code = 5799-2) Urobilinogen, UA 0.2 mg/dL 0.2-1 (test code = 46195-3) RBC, UA (test code = 1 See_Comment [Autom ated 03184-4) message] The system which generated this result [...] . Bacteria, UA (test Few code = 71984-9) Mucus (test code = Few 8247-9) Squam Epithel, UA 1 See_Comment [Automate d (test code = 90890-3) messag e] The system which generated this result transmit altagracia reference range : /HPF. The reference range was not used to interpret this result as normal/abnormal . Hyaline Casts, UA 6 See_Comment [Automate d (test code = 13660-4) messag e] The system which generated this result transmit altagracia reference range : /LPF. The reference range was not used to interpret this result as normal/abnormal . Specimen Source (test code = 2795) ELIANA (test code = ELIANA) Marketing Operations Analyst ID - [auto]Marketing Operations Analyst ID - tech Lab Interpretation Abnormal (test code = 33153-9) [facility] + Reflex to Culture 2020-09-30 10:53:00 Test Item Value Reference Range Interpretation Comments Color, UA (test code Light Yellow = 5778-6) Clarity, UA (test Clear code = 5767-9) Specific [place], UA 1.014 1.001-1.035 (test code = 5811-5) pH, UA (test code = 6.0 5.0-8.0 5803-2) Protein, UA (test 200 mg/dL Negative A code = 77818-0) Glucose, UA (test 50 mg/dL Negative A code = 365) Ketones, UA (test Negative Negative code = 2514-8) Bilirubin, UA (test Negative Negative code = 17681-4) Blood, UA (test code Small Negative A = 90219-7) Nitrite, UA (test Negative Negative code = 5802-4) Leukocytes, UA (test Negative Negative code = 5799-2) Urobilinogen, UA 0.2 mg/dL 0.2-1 (test code = 34561-8) RBC, UA (test code = 1 See_Comment [Autom ated 76854-0) message] The system which generated this result [...] . Bacteria, UA (test Few code = 94463-6) Mucus (test code = Few 8247-9) Squam Epithel, UA 1 See_Comment [Automate d (test code = 21085-6) messag e] The system which generated this result transmit altagracia reference range : /HPF. The reference range was not used to interpret this result as normal/abnormal . Hyaline Casts, UA 6 See_Comment [Automate d (test code = 55894-9) duarte e] The system which generated this result transmit altagracia reference range : /LPF. The reference range was not used to interpret this result as normal/abnormal . Specimen Source (test code = 2795) ELIANA (test code = ELIANA) Marketing Operations Analyst ID - [auto]Marketing Operations Analyst ID - tech Lab Interpretation Abnormal (test code = 47152-0) [facility]FLEX URINE [id number] 10:53:00 Test Item Value Reference Range Interpretation [...] = 514) SOURCE(BEAKER) (test code = 2795) Marketing Operations Analyst ID - [auto]Marketing Operations Analyst ID - techLactic acid, [id number] 10:00:00 Test Item Value Reference Range Interpretation Comments Lactate, Venous (test code 1.08 mmol/L 0.5-2.2 = 2872) ELIANA (test code = ELIANA) Marketing Operations Analyst ID - PIAYA L Lab Interpretation (test Normal code = 29772-4) [facility] HospitalL[facility], [id number] 10:00:00 Test Item Value Reference Range Interpretation Comments Lactate, Venous (test code 1.08 mmol/L 0.5-2.2 = 2872) ELIANA (test code = ELIANA) Marketing Operations Analyst ID - PIAYA L Lab Interpretation (test Normal code = 55824-0) [facility] [id number] 10:00:00 Test Item Value Reference Range Interpretation Comments Lactate, Venous (test code 1.08 mmol/L 0.5-2.2 = 2872) ELIANA (test code = ELIANA) Marketing Operations Analyst ID - PIAYA L Lab Interpretation (test Normal code = 74215-7) [facility], [id number] 10:00:00 Test Item Value Reference Range Interpretation Comments Lactate, Venous (test code 1.08 mmol/L 0.5-2.2 = 2872) ELIANA (test code = ELIANA) Marketing Operations Analyst ID - PIAYA L Lab Interpretation (test Normal code = 59864-2) [facility], [id number] 10:00:00 Test Item Value Reference Range Interpretation Comments Lactate, Venous (test code 1.08 mmol/L 0.5-2.2 = 2872) ELIANA (test code = ELIANA) Marketing Operations Analyst ID - PIAYA L Lab Interpretation (test Normal code = 57436-9) [facility], [id number] 10:00:00 Test Item Value Reference Range Interpretation Comments Lactate, Venous (test code 1.08 mmol/L 0.5-2.2 = 2872) ELIANA (test code = ELIANA) Marketing Operations Analyst ID - PIAYA L Lab Interpretation (test Normal code = 15867-8) [facility], [id number] 10:00:00 Test Item Value Reference Range Interpretation Comments LACTATE BLOOD VENOUS (2) (BEAKER) 1.08 mmol/L 0.50-2.20 (test code = 2872) Marketing Operations Analyst ID - ASHLEIGH LCBC W/PLT COUNT & AUTO [id number] 09:53:00 Test Item Value Reference Range Interpretation [...] = 2801) RAD, CHEST, 1 VIEW, NON [id number] 09:06:00Reason for exam:->? [facility] 1950 Sex: MFINAL REPORT INDICATION: ? sob COMPARISON: None TECHNIQUE: Single fro ntal view of the chest. FINDINGS: Lungs and pleura: Clear lungs. No effusion.Heart and mediastinum: Normal heart size. Unremarkable mediastinal contours.Osseous structures: No acute abnormality.Other: None. IMPRESSION: No acute intrathoracic abnormality. Signed: Nahed Cleary Verified Date/ Time: 09/30/2020 09:06:18 Reading Location: [facility] Radiology Reading Room XR chest 1 view portable / [id number] 09:06:00Interface, External Ris In - 09/30/2020 9:24 AM CDTFINAL REPORT INDICATION: ? sob COMPARISON: None TECHNIQUE: Single frontal view of the chest. FINDINGS: Lungs and pleura: Clearlungs. No effusion.Heart and mediastinum: Normal heart size. Unremarkable mediastinal contours.Osseous structures: No acute abnormality.Other: None. IMPRESSION: No acute intrathoracic abnormality. Sign ed: Nahed Cleary Verified Date/Time: 09/30/2020 09:06:18 Reading Location: [facility] Radiology Reading Room [facility] / [id number] 09:06:00Interface, External Ris In - 09/30/2020 9:24 AM CDTFINAL REPORT INDICATION: ? sob COMPARISON: None TECHNIQUE: Single frontal view of the chest. FINDINGS: Lungs and pleura: Clearlungs. No effusion.Heart and mediastinum: Normal heart size. Unremarkable mediastinal contours.Osseous structures: No acute abnormality.Other: None. IMPRESSION: No acute intrathoracic abnormality. Sign ed: Nahed Cleary Verified Date/Time: 09/30/2020 09:06:18 Reading Location: [facility] Radiology Reading Room [facility] portable / [id number] 09:06:00Interface, External Ris In - 09/30/2020 9:24 AM CDTFINAL REPORT INDICATION: ? sob COMPARISON: None TECHNIQUE: Single frontal view of the chest. FINDINGS: Lungs and pleura: Clearlungs. No effusion.Heart and mediastinum: Normal heart size. Unremarkable mediastinal contours.Osseous structures: No acute abnormality.Other: None. IMPRESSION: No acute intrathoracic abnormality. Sign ed: Nahed Cleary Verified Date/Time: 09/30/2020 09:06:18 Reading Location: [facility] Radiology Reading Room [facility] portable / [id number] 09:06:00Interface, External Ris In - 09/30/2020 9:24 AM CDTFINAL REPORT INDICATION: ? sob COMPARISON: None TECHNIQUE: Single frontal view of the chest. FINDINGS: Lungs and pleura: Clearlungs. No effusion.Heart and mediastinum: Normal heart size. Unremarkable mediastinal contours.Osseous structures: No acute abnormality.Other: None. IMPRESSION: No acute intrathoracic abnormality. Sign ed: Nahed Cleary Verified Date/Time: 09/30/2020 09:06:18 Reading Location: [facility] Radiology Reading Room [facility] portable / [id number] 09:06:00Interface, External Ris In - 09/30/2020 9:24 AM CDTFINAL REPORT INDICATION: ? sob COMPARISON: None TECHNIQUE: Single frontal view of the chest. FINDINGS: Lungs and pleura: Clearlungs. No effusion.Heart and mediastinum: Normal heart size. Unremarkable mediastinal contours.Osseous structures: No acute abnormality.Other: None. IMPRESSION: No acute intrathoracic abnormality. Sign ed: Nahed Cleary Verified Date/Time: 09/30/2020 09:06:18 Reading Location: [facility] Radiology Reading Room [facility] view portable / [id number] 09:06:00Interface, External Ris In - 09/30/2020 9:24 AM CDTFINAL REPORT INDICATION: ? sob COMPARISON: None TECHNIQUE: Single frontal view of the chest. FINDINGS: Lungs and pleura: Clearlungs. No effusion.Heart and mediastinum: Normal heart size. Unremarkable mediastinal contours.Osseous structures: No acute abnormality.Other: None. IMPRESSION: No acute intrathoracic abnormality. Sign ed: Nahed Cleary Verified Date/Time: 09/30/2020 09:06:18 Reading Location: [facility] Radiology Reading Room [facility] COMPREHENSIVE METABOLIC [id number] 07:47:00 Test Item Value Reference Range Interpretation [...] S NOT APPLICABLE FOR DIALYSIS PATIEN TS. Marketing Operations Analyst ID - [id number] 07:07:00 Test Item Value Reference Range Interpretation Comments PTT (test code = 69876-9) 25.1 See_Comment [ Automated message] The system Team [employer] generated this result transmitted ref erence range: 22.5 - 3 6.0 seconds. The re ference range was not u sed to interpret this result as normal/abnor mal. Lab Interpretation (test Normal code = 57269-3) [facility] 07:07:00 Test Item Value Reference Range Interpretation Comments PTT (test code = 04771-7) 25.1 See_Comment [ Automated message] The system [employer] generated this result transmitted ref erence range: 22.5 - 3 6.0 seconds. The re ference range was not u sed to interpret this result as normal/abnor mal. Lab Interpretation (test Normal code = 74656-8) [facility] 07:07:00 Test Item Value Reference Range Interpretation Comments PTT (test code = 22542-8) 25.1 See_Comment [ Automated message] The system [employer] generated this result transmitted ref erence range: 22.5 - 3 6.0 seconds. The re ference range was not u sed to interpret this result as normal/abnor mal. Lab Interpretation (test Normal code = 22671-7) [place] [id number] 07:07:00 Test Item Value Reference Range Interpretation Comments PTT (test code = 53526-0) 25.1 See_Comment [ Automated message] The system [employer] generated this result transmitted ref erence range: 22.5 - 3 6.0 seconds. The re ference range was not u sed to interpret this result as normal/abnor mal. Lab Interpretation (test Normal code = 87844-8) [place] [id number] 07:07:00 Test Item Value Reference Range Interpretation Comments PTT (test code = 66272-9) 25.1 See_Comment [ Automated message] The system [employer] generated this result transmitted ref erence range: 22.5 - 3 6.0 seconds. The re ference range was not u sed to interpret this result as normal/abnor mal. Lab Interpretation (test Normal code = 24000-0) [facility] Test Item Value Reference Range Interpretation Comments PTT (test code = 00113-9) 25.1 See_Comment [ Automated message] The system Team [employer] generated this result transmitted ref erence range: 22.5 - 3 6.0 seconds. The re ference range was not u sed to interpret this result as normal/abnor mal. Lab Interpretation (test Normal code = 37232-5) [place] [id number] 07:07:00 Test Item Value Reference Range Interpretation Comments PARTIAL THROMBOPLASTIN TIME 25.1 seconds 22.5-36.0 (BEAKER) (test code = 760) PROTHROMBIN TIME/[id number] 07:07:00 Test Item Value Reference Range Interpretation Comments PROTIME (BEAKER) 14.2 seconds 11.9-14.2 (test code = 759) INR (WENDI) (test 1.13 See_Comment [Automat ed message] code = 370) The system [employer] generated this result transmitted ref erence range: <=5.90. The reference range was not used to int erpret this result as normal/abnormal . Effective 12/11/2018: PT Reference Range ChangeNew: 11.9-14.2 Previous: 11.7- 14.7RECOMMENDED COUMADIN/WARFARIN INR THERAPY RANGESSTANDARD DOSE: 2.0-3.0 Includes: PROPHYLAXIS for venous thrombosis, systemic embolization; TREATMENT for venous thrombosis and/or pulmonary embolus.HIGH RISK: Target INR is2.5-3.5 for patients wiht mechanical heart valves.POCT-GLUCOSE [id number] 06:39:00 Test Item Value Reference Range Interpretation Comments POC-GLUCOSE METER 150 mg/dL 70-110 H : TESTED A T [facility] [address] (WENDI) (test code [facility], = 1538) [address]7084: Marketing Operations Analyst/Techni min ID = [id number] for JUNIE ALICIA [id number] 00:00:00Ordered by an unspecified provider.[facility]-[id number] 00:00:00Ordered by an unspecified provider. [facility]-[id number] 00:00:00Ordered by an unspecified provider.[facility]-[id number] 00:00:00 Ordered by an unspecified provider.[facility]-SCANNED 2020-09-30 00:00:00Ordered by an unspecified provider.[facility]-[id number] 00:00:00Ordered by an unspecified provider.[facility])2020-01-26 13:29:00 Test Item Value Reference Range Interpretation Comments SARS-COV2/RT-PCR (test code = Negative Not Detected, Negative 1968233) SARS-COV-[address] [facility] (test code = 5269015) Negative result for this test determines that [...] 564(g) of the Act.Fact Sheet for Healthcare Providers:https://www.[employer].com/sites/default/files/product/documents/Fact_Shee z_HH_Gnodssojz_Kbwx_BOWQ-JyE-6.pdfFact Sheet for Healthcare Patients:https://www.[employer].com/sites/default/files/product/ documents/Oewh_Ebkns_Xxmqdncd_Mgil_SZDJ-WyJ-2.pdfPerforming Laboratory:[facility] [place] [address]
[2021-03-21 15:43] LABS: Protime INR 1.04
[2021-03-21 15:48] LABS: Hematocrit 34.4 % (39.6-49.0); Lymphocytes % 2.1 % (15.3-44.8); RBC Red Blood Cell Count 3.95 M/uL (4.33-5.43)
[2021-03-21 15:49] LABS: Absolute Lymphocytes (CBC) 0.4 K/uL (0.7-4.9); Basophils % 0.5 % (0-1.3)
[2021-03-21 16:16] LABS: ALT/SGPT 16 U/L (12-78); AST/SGOT 18 U/L (15-37); Albumin 2.3 g/dL (3.4-5.0); Alkaline Phosphatase 113 U/L (45-117); BUN Blood Urea Nitrogen 51 mg/dL (7-18); Bicarbonate 24 mmol/L (21-32); Bilirubin Direct 0.6 mg/dL (0-0.2); Bilirubin Total 1.1 mg/dL (0.2-1.0); Ferritin 1073.2 ng/mL (26-388); Glucose Level 203 mg/dL (74-106); Magnesium 1.6 mg/dL (1.8-2.4); NT PRO-BNP 7686 pg/mL (<125); Potassium 3.9 mmol/L (3.5-5.1); Protein, Total 6.8 g/dL (6.4-8.2); Sodium Level 137 mmol/L (136-145); Troponin (Emerg Dept Use Only) < 0.02 ng/mL (0.0-0.045)
--- NOTE | 2021-03-21 16:20 | RAD REPORT ---
EXAM DESCRIPTION: RAD - Chest Single View - 03/21/2021 3:58 pm CLINICAL HISTORY: SOB Chest pain. COMPARISON: Chest Single View dated 03/10/2021; Chest Single View dated 03/04/2021; Chest Single View dated 11/24/2020; Chest Single View dated 11/22/2020 FINDINGS: Portable technique limits examination quality. Mild to moderate bilateral pulmonary opacities are present likely representing pneumonia or underlyin g COVID-19 infection. The heart is upper limit of normal in size. Tortuous thoracic aorta.
[2021-03-21 16:24] LABS: White Blood Cell Scan OK (OK)
[2021-03-21 16:25] LABS: Blood Morphology Comment NOT SEEN (NOT SEEN); Platelet Estimate ADEQ
[2021-03-21 16:39] LABS: Arterial Blood Carboxyhemoglob 1.2 % (0-1.5); Blood Gas Oxyhemoglobin 97.5 % (94-97); Blood O2 Saturation 99.5 % (92-98.5)
--- NOTE | 2021-03-21 16:56 | EDPHYS ---
Physician Documentation [facility] Name: Amaury Matamoros Age: 70 yrs Sex: Male : 1950 Arrival Date: 03/21/2021 Time: 15:14 Bed 26 Private MD: ED Physician Wally Miles HPI: 03/21 15:30 This 70 yrs old Male presents to ER via EMS with complaints of Altered Mental cp Status, Low O2. 15:30 The patient presents with decreased mental status. Onset: The symptoms/episode cp began/occurred at an unknown time. Possible causes: low oxygen level. 15:30 Associated signs and symptoms: Pertinent negatives: abdominal pain, chest pain, fever. cp Patient's baseline: Neuro: alert and fully oriented, Motor: left below the knee amputation, Ambulation: unable to walk, uses wheelchair, Speech: normal. Patient recently hospitalized for COVID-19 pneumonia. Historical: - Allergies: 15:23 PENICILLINS; ld1 - Home Meds: 15:23 aspirin 81 mg Oral chew 1 tab once daily [Active]; Metformin Oral [Active]; ld1 - PMHx: 15:23 Cellulitis; Diabetes - NIDDM; Hypertension; ld1 - PSHx: 15:23 Left AKA; ld1 - Immunization history:: Adult Immunizations up to date. - Social history:: Smoking status: Patient denies any tobacco usage or history of. ROS: 15:33 Constitutional: Negative for body aches, chills, fever, poor PO intake. cp 15:33 Eyes: Negative for injury, pain, redness, and discharge. cp 15:33 Cardiovascular: Negative for chest pain, edema, palpitations. 15:33 Respiratory: Positive for cough, shortness of breath, Negative for wheezing. 15:33 Abdomen/GI: Negative for abdominal pain, nausea, vomiting, and diarrhea. 15:33 Neuro: Negative for altered mental status. 15:33 All other systems are negative. Exam: 15:40 Constitutional: The patient appears in no acute distress, alert, awake, cp non-diaphoretic, non-toxic, well developed. 15:40 Head/Face: Normocephalic, atraumatic. cp 15:40 Eyes: Periorbital structures: appear normal, Pupils: equal, round, and reactive to light and accomodation, Extraocular movements: intact throughout, Conjunctiva: normal, no exudate, no injection, Sclera: no appreciated abnormality, Lids and lashes: appear normal, bilaterally. 15:40 ENT: External ear(s): are unremarkable, Nose: is normal, Mouth: Lips: dry, Oral mucosa: moist, Posterior pharynx: Airway: no evidence of obstruction, patent. 15:40 Neck: ROM/movement: is normal, is supple, without pain, no range of motions limitations. 15:40 Chest/axilla: Inspection: normal, Palpation: is normal, no crepitus, no tenderness. 15:40 Cardiovascular: Rate: tachycardic, Rhythm: regular, Edema: is not appreciated, JVD: is not appreciated. 15:40 Respiratory: the patient does not display signs of respiratory distress, Respirations: labored breathing, is not present, shallow respirations, that is mild, Breath sounds: decreased breath sounds, that are mild, diffuse, wheezing: is not appreciated. 15:40 Abdomen/GI: Inspection: abdomen appears normal, Palpation: abdomen is soft and non-tender, in all quadrants. 15:40 Back: pain, is absent, ROM is normal. 15:40 Musculoskeletal/extremity: left below the knee amputation. 15:40 Skin: cellulitis, is not appreciated, no rash present. 15:40 Neuro: Orientation: to person, place \T\ time. Mentation: is normal. 15:45 ECG was reviewed by the Attending Physician. Vital Signs: 15:18 BP 130 / 75; Pulse 101; Resp 18; Temp 98.9(TE); Pulse Ox 91% on 7% Non-rebreather mask; ld1 Weight 54.43 kg; Height 5 ft. 8 in. (172.72 cm); Pain 0/10; 16:19 BP 147 / 88; Pulse 94; Resp 18; Pulse Ox 96% on 7% Non-rebreather mask; ld1 15:18 Body Mass Index 18.25 (54.43 kg, 172.72 cm) ld1 MDM: 15:18 Patient medically screened. cp 16:00 Differential Diagnosis: pneumonia, sepsis, respiratory failure. cp 16:54 Physician consultation: Garo Us MD was called at 16:54, was contacted at 16:54, regarding admission, to the telemetry unit. patient's condition. 17:00 Data reviewed: vital signs, nurses notes, lab test result(s), EKG, radiologic studies, cp plain films. 17:00 Counseling: I had a detailed discussion with the patient and/or guardian regarding: the cp historical points, exam findings, and any diagnostic results supporting the discharge/admit diagnosis, lab results, radiology results, the need for further work-up and treatment in the hospital. Response to treatment: the patient's symptoms have mildly improved after treatment, and as a result, I will admit patient. 03/21 15:24 Order name: Basic Metabolic Panel cp 03/21 15:24 Order name: CBC with Diff cp 03/21 15:24 Order name: LFT's; Complete Time: 16:20 cp 03/21 15:24 Order name: Magnesium; Complete Time: 16:20 cp 03/21 15:24 Order name: NT PRO-BNP; Complete Time: 16:20 cp 03/21 16:20 Interpretation: Abnormal: NT PRO-BNP 7686. cp 03/21 15:24 Order name: PT-INR; Complete Time: 16:20 cp 03/21 15:24 Order name: Troponin (emerg Dept Use Only); Complete Time: 16:20 cp 03/21 15:24 Order name: Ferritin; Complete Time: 16:20 cp 03/21 15:24 Order name: CRP; Complete Time: 16:20 cp 03/21 15:24 Order name: ABG cp 03/21 15:25 Order name: Basic Metabolic Panel; Complete Time: 16:20 EDMS 03/21 16:22 Interpretation: Normal except: GLUC 203; BUN 51; CRE 2.07; GFR 32; CA 8.0. cp 03/21 15:25 Order name: CBC with Automated Diff; Complete Time: 16:30 EDMS 03/21 16:21 Interpretation: Normal except: WBC 17.30; RBC 3.95; HGB 11.6; HCT 34.4; PLT 144; MPV cp 9.0; LISET% 93.9; LYM% 2.1; NEUT A 16.3; LYMA 0.4. 03/21 15:50 Order name: CBC Smear Scan; Complete Time: 16:30 EDMS 03/21 16:30 Order name: Urine Microscopic Only cp 03/21 16:30 Order name: Lactate cp 03/21 16:30 Order name: Procalcitonin 03/21 16:30 Order name: Blood Culture Adult (2) 03/21 16:54 Order name: Influenza Screen (a \T\ B) 03/21 19:27 Order name: SARS-COV-2 RT PCR EDOK 03/21 21:50 Order name: Basic Metabolic Panel EDOK 03/21 21:50 Order name: Basic Metabolic Panel [facility]OK 03/21 21:50 Order name: CBC with Automated Diff [facility]OK 03/21 21:50 Order name: CBC with Automated Diff [facility]OK 03/21 21:50 Order name: Lipid Profile [facility] 03/21 21:50 Order name: Lipid Profile [facility] 03/21 21:50 Order name: Magnesium [facility] 03/21 21:50 Order name: Magnesium [facility] 03/22 09:37 Order name: Gram Stain--Aerobic Bottle [facility]OK 03/22 09:39 Order name: Gram Stain--Aerobic Bottle [facility]OK 03/21 15:24 Order name: XRAY Chest (1 view); Complete Time: 16:21 03/21 15:24 Order name: EKG; Complete Time: 15:25 03/21 15:24 Order name: Cardiac monitoring; Complete Time: 15:26 03/21 15:24 Order name: EKG - Nurse/Tech; Complete Time: 15:50 03/21 15:24 Order name: IV Saline Lock; Complete Time: 15:26 03/21 15:24 Order name: Labs collected and sent; Complete Time: 15:50 03/21 15:24 Order name: O2 Per Protocol; Complete Time: 15:26 03/21 15:24 Order name: O2 Sat Monitoring; Complete Time: 15:26 03/21 21:50 Order name: 60g Consistent Carbohydrate (ADA 1800/2000) EDOK 03/21 21:50 Order name: Respiratory Therapy Consult EDOK 03/22 09:54 Order name: Glucose, Ancillary Testing EDOK 03/22 11:49 Order name: Glucose, Ancillary Testing EDOK EC:45 Rate is 93 beats/min. Rhythm is regular. IN interval is normal. QRS interval is normal. cp QT interval is normal. Interpreted by me. Reviewed by me. Administered Medications: 16:58 Drug: Magnesium Sulfate 1 grams Route: IVPB; Infused Over: 1 hrs; Site: left ld1 antecubital; 18:07 Follow up: Response: No adverse reaction; IV Status: Completed infusion; IV Intake: ld1 100ml 18:07 Drug: LevaQUIN (levofloxacin) 500 mg Volume: 100 ml; Route: IVPB; Infused Over: 60 ld1 mins; Site: left antecubital; Disposition: 03/23 08:26 Co-signature as Attending Physician, Wally Miles MD I agree with the assessment and marj plan of care. Disposition Summary: 03/21/21 16:55 Hospitalization Ordered Hospitalization Status: Inpatient Admission cp Provider: Garo Us cp Condition: Fair cp Problem: an ongoing problem cp Symptoms: have improved cp Bed/Room Type: Standard cp Location: Telemetry/MedSurg (Inpatient)(03/22/21 14:17) bd Room Assignment: 222(03/22/21 14:17) bd Diagnosis - Other pneumonia, unspecified organism cp - Hypoxemia cp Forms: - Medication Reconciliation Form cp - SBAR form cp Signatures: Dispatcher [employer] EDOK Estela Alcantar Corey, MD MD cha Page, Corey, PA PA Vianca Parrish, RN RN Spring Landrum RN RN ld1 Corrections: (The following items were deleted from the chart) 09 18:25 16:54 CORONAVIRUS+MR.LAB.BRZ ordered. EDOK EDOK 20:40 16:55 Telemetry/MedSurg (Inpatient) cp cg 20:40 16:55 cp cg 03/22 14:17 03/21 20:40 [facility] ER HOLD cg bd 03/22 14:17 03/21 20:40 ERHOLD- cg bd
--- NOTE | 2021-03-21 16:56 | ER ---
Nurse's Notes [facility] Name: Amaury Matamoros Age: 70 yrs Sex: Male : 1950 Arrival Date: 03/21/2021 Time: 15:14 Bed 26 Private MD: Diagnosis: Other pneumonia, unspecified organism;Hypoxemia Presentation: 03/21 15:18 Chief complaint: EMS states: toned out for low oxygen saturation. Upon arrival to [facility] hospital pt is 88% on 7lpm NC. Coronavirus screen: At this time, the client does not indicate any symptoms associated with coronavirus-19. Ebola Screen: No symptoms or risks identified at this time. Initial Sepsis Screen: Does the patient meet any 2 criteria? No. Patient's initial sepsis screen is negative. Does the patient have a suspected source of infection? No. Patient's initial sepsis screen is negative. Risk Assessment: Do you want to hurt yourself or someone else? Patient reports no desire to harm self or others. Onset of symptoms was March 21, 2021. 15:18 Method Of Arrival: EMS: [facility] 15:18 Acuity: ALEJANDRA 3 [facility] Triage Assessment: 15:23 General: Appears in no apparent distress. comfortable, Behavior is calm, cooperative, ld1 appropriate for age. Pain: Denies pain. EENT: No signs and/or symptoms were reported regarding the EENT system. Neuro: Level of Consciousness is awake, alert, obeys commands, Oriented to person, place, time, situation. Cardiovascular: Capillary refill < 3 seconds Patient's skin is warm and dry. Respiratory: Airway is patent Respiratory effort is even, unlabored, Respiratory pattern is regular, symmetrical. GI: Abdomen is flat, non-distended. : No signs and/or symptoms were reported regarding the genitourinary system. Derm: Wound noted right knee and left knee Reports wounds due to crawling to the bathroom at home. Musculoskeletal: No signs and/or symptoms reported regarding the musculoskeletal system. Historical: - Allergies: 15:23 PENICILLINS; ld1 - Home Meds: 15:23 aspirin 81 mg Oral chew 1 tab once daily [Active]; Metformin Oral [Active]; ld1 - PMHx: 15:23 Cellulitis; Diabetes - NIDDM; Hypertension; ld1 - PSHx: 15:23 Left AKA; ld1 - Immunization history:: Adult Immunizations up to date. - Social history:: Smoking status: Patient denies any tobacco usage or history of. Screenin:25 Abuse screen: Denies threats or abuse. Denies injuries from another. Nutritional ld1 screening: No deficits noted. Tuberculosis screening: No symptoms or risk factors identified. Fall Risk None identified. Assessment: 15:25 Reassessment: See triage assessment. ld1 16:19 Reassessment: Patient appears in no apparent distress at this time. No changes from ld1 previously documented assessment. Patient and/or family updated on plan of care and expected duration. Pain level reassessed. Patient is alert, oriented x 3, equal unlabored respirations, skin warm/dry/pink. Vital Signs: 15:18 BP 130 / 75; Pulse 101; Resp 18; Temp 98.9(TE); Pulse Ox 91% on 7% Non-rebreather mask; ld1 Weight 54.43 kg; Height 5 ft. 8 in. (172.72 cm); Pain 0/10; 16:19 BP 147 / 88; Pulse 94; Resp 18; Pulse Ox 96% on 7% Non-rebreather mask; ld1 15:18 Body Mass Index 18.25 (54.43 kg, 172.72 cm) ld1 ED Course: 15:14 Patient arrived in ED. ds1 15:17 Wally Espinosa PA is PHCP. cp 15:17 Wally Miles MD is Attending Physician. cp 15:23 Triage completed. ld1 15:23 Arm band placed on right wrist. ld1 15:25 Patient has correct armband on for positive identification. Placed in gown. Bed in low ld1 position. Call light in reach. Side rails up X2. monitoring specialist on. Pulse ox on. NIBP on. Door closed. Noise minimized. Warm blanket given. 15:25 No provider procedures requiring assistance completed. Inserted saline lock: 18 gauge ld1 in left antecubital area, using aseptic technique. Blood collected. 15:25 Oxygen administration administration via face mask \T\ 7L/min. ld1 15:58 XRAY Chest (1 view) In Process Unspecified. EDMS 16:54 Garo Us MD is Hospitalizing Provider. cp 03/22 10:28 Anastasia Rondon is Primary Nurse. kh1 Administered Medications: 03/21 16:58 Drug: Magnesium Sulfate 1 grams Route: IVPB; Infused Over: 1 hrs; Site: left ld1 antecubital; 18:07 Follow up: Response: No adverse reaction; IV Status: Completed infusion; IV Intake: ld1 100ml 18:07 Drug: LevaQUIN (levofloxacin) 500 mg Volume: 100 ml; Route: IVPB; Infused Over: 60 ld1 mins; Site: left antecubital; Intake: 18:07 IV: 100ml; Total: 100ml. ld1 Outcome: 16:55 Decision to Hospitalize by Provider. jerman 03/22 17:20 Patient left the ED. ss Signatures: Dispatcher [employer] EDMD Alana Harrell ds1 Soraida Capps RN RN Wally Espinosa PA PA cp Dibbern, Lauren, RN RN [facility] Anastasia Rondon [facility]
[2021-03-21] MEDS ORDERED: MAGNESIUM SULFATE 1 gm IVPB 1 GM/100 ML BAG IV ONE (17:18)
[2021-03-21] MEDS ORDERED: Levofloxacin500mg IV 500 MG/100 ML BAG IV ONE (17:18)
[2021-03-21] MEDS ORDERED: ONDANSETRON 4 MG/2 ML VIAL IV PRN (21:47)
[2021-03-21 22:31] VITALS: BMI 19.5
[2021-03-22 02:36] LABS: Absolute Lymphocytes (CBC) 0.7 K/uL (0.7-4.9); Basophils % 0.6 % (0-1.3); Lymphocytes % 6.8 % (15.3-44.8); MPV 8.6 fL (7.6-11.3); RBC Red Blood Cell Count 3.38 M/uL (4.33-5.43)
[2021-03-22 06:26] LABS: Magnesium 2.1 mg/dL (1.8-2.4)
[2021-03-22] MEDS: INSULIN -REGULAR HUMAN 50 UNIT/0.5 ML ML SQ SCH ×5 (07:30→21:00)
[2021-03-22 07:42] LABS: Potassium 2.8 mmol/L (3.5-5.1)
[2021-03-22] MEDS ORDERED: FAMOTIDINE 20 MG/2 ML VIAL IV SCH (09:00)
[2021-03-22] MEDS: ASPIRIN EC 81 MG TAB PO SCH (09:00)
[2021-03-22] MEDS: FAMOTIDINE 20 MG/2 ML VIAL IV SCH ×2 (09:00→20:13)
[2021-03-22] MEDS ORDERED: ASPIRIN EC 81 MG TAB PO ONE (09:55)
[2021-03-22] MEDS ORDERED: FAMOTIDINE 20 MG/2 ML VIAL IV ONE (09:56)
[2021-03-22] MEDS: KCL 20 MEQ/100 mL IVPB 20 MEQ/100 ML BAG IV SCH ×2 (10:00→13:05)
[2021-03-22] MEDS ORDERED: KCL 20 MEQ/100 mL IVPB 20 MEQ/100 ML BAG IV ONE ×3 (10:25→16:06)
--- NOTE | 2021-03-22 10:57 | EKG ---
Test Date: 2021-03-21 Test Time: 15:36:07 Sports Announcer: TANNER MEASUREMENT RESULTS: Intervals: Rate: 93 AR: 144 QRSD: 80 QT: 360 QTc: 447 [place]: P: 19 AR: 144 QRS: -18 T: -15 INTERPRETIVE STATEMENTS: Normal sinus rhythm Possible Left atrial enlargement Septal infarct, age undetermined Abnormal ECG Compared to ECG 03/10/2021 20:00:17 No significant changes Electronically Signed On 03-22-21 10:54:10 CDT by Noah Keyes
--- NOTE | 2021-03-22 19:11 | P.HP ---
Certification for Inpatient Patient admitted to: Inpatient With expected LOS: >2 Midnights Practitioner: I am a practitioner with admitting privileges, knowledge of patient current condition, hospital course, and medical plan of care. Services: Services provided to patient in accordance with Admission requirements found in Title 42 Section 412.3 of the Code of Federal Regulations Patient History Date of Service: 03/22/21 Primary Care Provider: Magen Reason for admission: pneumonia History of Present Illness: Patient is an office patient of [facility]. He has a history of pvd, htn, ckd stage 4. Is very non compliant. Recently discharged on oxygen for covid infection. States he came back to the hospital for not feeling well. the patient was coughing with sputum. Found to have pneumonia on xray His curb 65 score is 2. Which gives him a 3% mortality Will need to be treated inpatient. Allergies Penicillins Allergy (Intermediate, Verified 03/03/19 18:20) Rash Home Medications: Amlodipine [Norvasc*] 5 mg PO DAILY #30 tab 12/02/20 Gabapentin [Neurontin*] 100 mg PO TID #90 cap 12/02/20 Metoprolol Tartrate [Lopressor*] 25 mg PO BID #60 tab 12/02/20 Metoprolol Succinate 1 tab PO DAILY 02/02/21 Hydrocodone Bit/Acetaminophen [Hydrocodon-Acetaminoph 7.5-325] 1 each PO TIDP PRN 7 Days #20 tablet 02/05/21 - Past Medical/Surgical History Has patient received pneumonia vaccine in the past: No Diabetic: Yes -: Diabetes mellitus type 2, [id number] -: DM-NIDDM -: Alcohol Abuse -: Tobacco Abuse -: Hypertension -: Chronic pain -: Chronic sacral ulcer -: Left Knee Surgery -: Left BKA with Prosthetic blood -: surg wnd on coccyx wound Psychosocial/ Personal History: He is , has 4 children. He is disabled. - Family History Father -: Heart disease, Hypertension, Diabetes, Cancer Mother -: Diabetes, Stroke - Social History Smoking Status: Former smoker Alcohol use: No CD- Drugs: No Caffeine use: Yes Review of Systems 10-point ROS is otherwise unremarkable General: Weakness, Malaise Respiratory: Cough, Sputum Physical Examination - Vital Signs Temperature: 97.6 F Blood Pressure: 155/80 Pulse: 81 Respirations: 18 Pulse Ox (%): 93 - Physical Exam General: Alert, In no apparent distress HEENT: Atraumatic, PERRLA, Mucous membr. moist/pink, EOMI, Sclerae nonicteric Neck: Supple, 2+ carotid pulse no bruit, No LAD, Without JVD or thyroid abnormality Respiratory: Normal air movement, Crackles/rales (basilar) Cardiovascular: Regular rate/rhythm, Normal S1 S2 Gastrointestinal: Normal bowel sounds, No tenderness Musculoskeletal: No tenderness Integumentary: No rashes Neurological: Normal gait, Normal speech, Normal strength at 5/5 x4 extr, Normal tone, Normal affect Lymphatics: No axilla or inguinal lymphadenopathy - Studies Microbiology Data (last 24 hrs): 03/21/21 21:09 Blood - Blood Blood Culture Gram Stain - Final 03/21/21 21:09 Blood - Blood Anaerobic Blood Culture - Final 03/21/21 21:03 Blood - Blood Blood Culture Gram Stain - Final 03/21/21 21:03 Blood - Blood Anaerobic Blood Culture - Final 03/21/21 17:01 Nasopharnyx Influenza Type A Antigen Screen - Final 03/21/21 17:01 Nasopharnyx Influenza Type B Antigen Screen - Final Assessment and Plan - Problems (Diagnosis) (1) Pneumonia Current Visit: Yes Status: Acute Plan: naveen start the patient on levaquin. Gm + rods and cocci in the cultures. Will consider vancomycin. pulse ox is maintined on nc oxygen Wll await culture repors Qualifiers: Pneumonia type: due to unspecified organism (2) Acute on chronic renal failure Current Visit: No Status: Acute Plan: He remains stable. naveen continue to monitor his creatine. 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 He is not well controlled. 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 adjust as necesary Qualifiers: Hypertension type: primary hypertension Qualified Code(s): I10 - Essential (primary) hypertension Discharge Plan: Home Plan to discharge in: 72 Hours - Advance Directives Does patient have a Living Will: No Does patient have a Durable POA for Healthcare: No - Code Status/Comfort Care Code Status Assessed: Yes Code Status: Full Code Physician Review: Patient Assessed, Agree with Above Assessment and Plan Critical Care: No Time Spent Managing Pts Care (In Minutes): 45
[2021-03-22] MEDS ORDERED: GLUCAGON 1 MG/VIAL IM PRN (19:27)
[2021-03-22] MEDS ORDERED: D50W 25 GM/50 ML SYRINGE IV PRN (19:27)
[2021-03-22] MEDS ORDERED: HYDROCODONE/APAP 7.5/325 MG TAB PO PRN (19:29)
[2021-03-22] MEDS: Levofloxacin500mg IV 500 MG/100 ML BAG IV SCH (20:08)
[2021-03-22] MEDS: GABAPENTIN 100 MG CAP PO SCH (20:25)
[2021-03-22] MEDS ORDERED: POTASSIUM CL SA 10 MEQ TAB PO ONE (22:00)
[2021-03-23 07:00] LABS: Absolute Lymphocytes (CBC) 0.6 K/uL (0.7-4.9); Basophils % 0.3 % (0-1.3); Hematocrit 26.9 % (39.6-49.0); Lymphocytes % 4.9 % (15.3-44.8); MPV 8.2 fL (7.6-11.3); RBC Red Blood Cell Count 3.11 M/uL (4.33-5.43)
[2021-03-23 07:14] LABS: Albumin 1.8 g/dL (3.4-5.0); Bilirubin Total 0.7 mg/dL (0.2-1.0); Protein, Total 5.4 g/dL (6.4-8.2)
[2021-03-23] MEDS: INSULIN -REGULAR HUMAN 50 UNIT/0.5 ML ML SQ SCH ×8 (07:30→21:15)
[2021-03-23] MEDS: AMLODIPINE 5 MG TAB PO SCH (09:23)
[2021-03-23] MEDS: ASPIRIN EC 81 MG TAB PO SCH (09:23)
[2021-03-23] MEDS: GABAPENTIN 100 MG CAP PO SCH ×3 (09:24→20:18)
[2021-03-23] MEDS: METOPROLOL XL 50 MG TAB PO SCH (09:25)
[2021-03-23] MEDS: FAMOTIDINE 20 MG/2 ML VIAL IV SCH ×2 (09:25→20:18)
[2021-03-23] MEDS ORDERED: KCL 20 MEQ/100 mL IVPB 0 MEQ/0 ML BAG IV ONE (09:26)
[2021-03-23] MEDS: KCL 20 MEQ/100 mL IVPB 20 MEQ/100 ML BAG IV SCH (10:00)
--- NOTE | 2021-03-23 10:12 | P.PN ---
Subjective Date of Service: 03/23/21 Primary Care Provider: Magen Chief Complaint: pneumonia Subjective: No new changes Review of Systems 10-point ROS is otherwise unremarkable General: Malaise Physical Examination - Vital Signs Temperature: 97.5 F Blood Pressure: 149/81 Pulse: 74 Respirations: 20 Pulse Ox (%): 99 - Physical Exam General: Alert, In no apparent distress HEENT: Atraumatic, PERRLA, EOMI Neck: Supple, JVD not distended Respiratory: Clear to auscultation bilaterally, Normal air movement Cardiovascular: Regular rate/rhythm, Normal S1 S2 Gastrointestinal: Normal bowel sounds, No tenderness Musculoskeletal: No tenderness Integumentary: No rashes Neurological: Normal speech, Normal tone, Normal affect Lymphatics: No axilla or inguinal lymphadenopathy - Studies Microbiology Data (last 24 hrs): 03/21/21 21:03 Blood - Blood Blood Culture Gram Stain - Final 03/21/21 21:03 Blood - Blood Gram Stain - Final 03/21/21 21:09 Blood - Blood Blood Culture Gram Stain - Final 03/21/21 21:09 Blood - Blood Anaerobic Blood Culture - Final 03/21/21 21:09 Blood - Blood Gram Stain - Final Assessment & Plan - Problems (Diagnosis) (1) Pneumonia Current Visit: Yes Status: Acute Plan: naveen start the patient on levaquin. Gm + rods and cocci in the cultures. Will consider vancomycin. pulse ox is maintined on nc oxygen Wll await culture repors Qualifiers: Pneumonia type: due to unspecified organism (2) Acute on chronic renal failure Current Visit: No Status: Acute Plan: He remains stable. naveen continue to monitor his creatine. 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 He is not well controlled. 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 adjust as necesary Qualifiers: Hypertension type: primary hypertension Qualified Code(s): I10 - Essential (primary) hypertension Discharge Plan: Home Plan to discharge in: 24 Hours - Code Status/Comfort Care Code Status Assessed: No Physician Review: Patient Assessed, Agree with Above Assessment and Plan Critical Care: No Time Spent Managing Pts Care (In Minutes): 20
[2021-03-23] MEDS: ACETAMINOPHEN 500 MG TAB PO SCH ×2 (12:06→17:40)
[2021-03-23] MEDS ORDERED: ENOXAPARIN 40 MG/0.4 ML SQ SCH (17:00)
[2021-03-23] MEDS: DOXYCYCLINE 100 MG CAP PO SCH (20:17)
[2021-03-23] MEDS: Levofloxacin500mg IV 500 MG/100 ML BAG IV SCH (20:17)
[2021-03-24] MEDS: ACETAMINOPHEN 500 MG TAB PO SCH ×3 (00:06→12:00)
[2021-03-24 04:13] VITALS: O2SAT 99
[2021-03-24 05:50] LABS: Absolute Lymphocytes (CBC) 0.6 K/uL (0.7-4.9); Basophils % 0.5 % (0-1.3); Hematocrit 27.3 % (39.6-49.0); Lymphocytes % 6.1 % (15.3-44.8); MPV 8.9 fL (7.6-11.3); RBC Red Blood Cell Count 3.13 M/uL (4.33-5.43)
[2021-03-24 06:01] LABS: Albumin 1.7 g/dL (3.4-5.0); Bilirubin Total 0.6 mg/dL (0.2-1.0); Protein, Total 5.5 g/dL (6.4-8.2)
[2021-03-24] MEDS: INSULIN -REGULAR HUMAN 50 UNIT/0.5 ML ML SQ SCH ×3 (07:30→11:30)
[2021-03-24] MEDS: GABAPENTIN 100 MG CAP PO SCH (08:42)
[2021-03-24] MEDS: ASPIRIN EC 81 MG TAB PO SCH (08:42)
[2021-03-24] MEDS: DOXYCYCLINE 100 MG CAP PO SCH (08:42)
[2021-03-24] MEDS: AMLODIPINE 5 MG TAB PO SCH (08:43)
[2021-03-24] MEDS: METOPROLOL XL 50 MG TAB PO SCH (08:43)
[2021-03-24] MEDS: FAMOTIDINE 20 MG/2 ML VIAL IV SCH (08:43)
[2021-03-24 08:53] LABS: Blood Morphology Comment NOT SEEN (NOT SEEN); Platelet Estimate DECR
--- NOTE | 2021-03-24 09:05 | P.DS ---
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 Chronic kidney disease stage: stage 4 (severe) Qualified Code(s): N17.2 - Acute kidney failure with medullary necrosis; N18.4 - Chronic kidney disease, stage 4 (severe) (3) Diabetes mellitus Onset Date: 08/08/16 Current Visit: No Status: Chronic Qualifiers: Diabetes mellitus type: type 2 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 He has a history of pvd, htn, ckd stage 4. Is very non compliant. Recently discharged on oxygen for covid infection. States he came back to the hospital for not feeling well. the patient was coughing with sputum. Found to have pneumonia on xray His curb 65 score is 2. Which gives him a 3% mortality Will need to be treated inpatient. Hospital Course: Patient presented with pneumonia. Admitted to the floor started on fluids and antibiotics. He has gm positive cocci on his blood cxs. He is doing well. Has improved kidney function. Vital Signs/Physical Exam: Temp Pulse Resp BP Pulse Ox 97 F 62 16 145/79 H 100 03/24/21 08:00 03/24/21 08:43 03/24/21 08:00 03/24/21 08:43 03/24/21 08:00 General: Alert, In no apparent distress HEENT: Atraumatic, PERRLA, EOMI Neck: Supple, JVD not distended Respiratory: Clear to auscultation bilaterally, Normal air movement Cardiovascular: Regular rate/rhythm, Normal S1 S2 Gastrointestinal: Normal bowel sounds, No tenderness Musculoskeletal: No tenderness Integumentary: No rashes Neurological: Normal speech, Normal tone, Normal affect Lymphatics: No axilla or inguinal lymphadenopathy Laboratory Data at Discharge: WBC 10.00 K/uL (4.3-10.9) 03/24/21 05:30 Hgb 9.3 g/dL (13.6-17.9) L 03/24/21 05:30 Hct 27.3 % (39.6-49.0) L 03/24/21 05:30 Plt Count 73 K/uL (152-406) L 03/24/21 05:30 PT 12.0 SECONDS (9.5-12.5) 03/21/21 15:27 INR 1.04 03/21/21 15:27 Sodium 140 mmol/L (136-145) 03/24/21 05:30 Potassium 4.0 mmol/L (3.5-5.1) 03/24/21 05:30 BUN 34 mg/dL (7-18) H 03/24/21 05:30 Creatinine 2.18 mg/dL (0.55-1.3) H 03/24/21 05:30 Glucose 82 mg/dL (74-106) 03/24/21 05:30 Magnesium 2.1 mg/dL (1.8-2.4) D 03/22/21 01:52 Total Bilirubin 0.6 mg/dL (0.2-1.0) 03/24/21 05:30 AST 31 U/L (15-37) 03/24/21 05:30 ALT 20 U/L (12-78) 03/24/21 05:30 Alkaline Phosphatase 124 U/L (45-117) H 03/24/21 05:30 Triglycerides 157 mg/dL (<150) H 03/22/21 01:52 Cholesterol 136 mg/dL (<200) 03/22/21 01:52 HDL Cholesterol 25 mg/dL (40-60) L 03/22/21 01:52 Cholesterol/HDL Ratio 5.44 03/22/21 01:52 Home Medications: Amlodipine [Norvasc*] 5 mg PO DAILY #30 tab 12/02/20 Gabapentin [Neurontin*] 100 mg PO TID #90 cap 12/02/20 Metoprolol Tartrate [Lopressor*] 25 mg PO BID #60 tab 12/02/20 Metoprolol Succinate 1 tab PO DAILY 02/02/21 Hydrocodone Bit/Acetaminophen [Hydrocodon-Acetaminoph 7.5-325] 1 each PO TIDP PRN 7 Days #20 tablet 02/05/21 levoFLOXacin [Levaquin] 500 mg PO DAILY 10 Days #10 tab 03/24/21 New Medications: levoFLOXacin [Levaquin] 500 mg PO DAILY 10 Days #10 tab Diet: Renal Activity: Ad yoanna Followup: Garo Us MD [ACTIVE - CAN ADMIT] - Physician Review: Patient Assessed, Agree with Above Assessment and Plan Time spent managing pt's care (in minutes): 25
[2021-03-24] MEDS: KCL 20 MEQ/100 mL IVPB 20 MEQ/100 ML BAG IV SCH (10:00)
[2021-03-24 12:11] VITALS: BP 147/81; TEMP 97.5
[2021-03-24] MEDS ORDERED: FAMOTIDINE 20 MG TAB PO SCH (21:00)
[2021-03-25] MEDS ORDERED: FAMOTIDINE 20 MG TAB PO SCH (09:00)
[2021-03-25] MEDS ORDERED: levoFLOXacin 500 MG TAB PO SCH (21:00)
== END 2021-03-24 12:20 | disposition home or self-care (01) | DRG 193 ==
LOC: ER 15:13 → ERHOLD 21:46 → 2ND 03-22 17:03
PROVIDERS: ADMIT Internal Medicine; ATTEND Internal Medicine
DX: J18.9 Pneumonia, unspecified organism (principal); N17.2 Acute kidney failure with medullary necrosis; N18.4 Chronic kidney disease, stage 4 (severe); I12.9 Hypertensive chronic kidney disease with stage 1 through stage 4 chronic kidney disease, or unspecified chronic kidney disease; E11.22 Type 2 diabetes mellitus with diabetic chronic kidney disease; I73.9 Peripheral vascular disease, unspecified; Z87.891 Personal history of nicotine dependence; Z86.16 Personal history of COVID-19; Z20.822 Contact with and (suspected) exposure to COVID-19; Z89.612 Acquired absence of left leg above knee
CPT/HCPCS: 36415; 71045; 80048; 80053; 80061; 80076; 82728; 82805; 82947; 83605; 83735; 83880; 84132; 84145; 84484; 85025; 85610; 86140; 87040; 87205; 87804; 93005; 96365; 96375; 99285; J3475; J3480; U0003

== ENCOUNTER 2021-03-28 14:56 | Inpatient (IN) | payer OTHER ==
--- OUTSIDE RECORDS SUMMARY | 2021-03-28 15:08 | XMS REPORT | Continuity of Care Document ---
:1950 Author Organization [facility] t Address [address] [place] [address] Care Team Providers Name Role Phone Laney [...] Date Clinician Penicill Drug Active Rash [facility] Penicill Adverse Active Info Not [facility] Reaction Available [facility] Social History Social Habit Start Date Stop Date Quantity Comments Source Alcohol intake 2020-10-04 2020-10-04 [facility] (finding[facility] Tobacco use and 2020-10-01 2020-10-[address] Est[facility] kes - exposure 00:00:00 00:00:00 [facility] Sex Assigned At [birth year] [facility] [address] Estrella kes - 00:00:00 00:00:00 [facility] Smoking Status Start Date Stop Date Source Current every day smoker 2020-10-04 00:00:00 [facility] Medications Ordered Filled Start Stop Current [...] :00 total) by Center mouth daily. amLODIPine 2020-0 2021- No 2.5mg QD Take [address] (NORVASC) 3-22 03-22 tablet [facility] - 2.5 MG 00:00: 23:59 (2.5 mg Medical tablet 00 :00 total) by Center mouth daily. amLODIPine 2020-0 2021- No 2.5mg QD Take 1 [facility] [...] 2 Center tablet (two) times daily. pantoprazol Yes 40mg Q.5D Take 1 [...] Take [address] en 3-21 -16 tablets [facility] - (TYLENOL) 00:00: 23:59 (650 mg Medi marisel 325 MG 00 :00 total) by Center tablet mouth every 6 (six) hours as needed for up to 360 days. acetaminoph 2021- No 650mg Take [address] en 3-21 -16 tablets [facility] - (TYLENOL) 00:00: 23:59 [...] Yes Alfonzo [address] Mera [facility] Hydrochloro Hydrochloro Yes Alfonzo [address] thiazide thiazide Mera in the Luke s - morning [facility] Pantoprazol Pantoprazol Yes Alfonzo [address] e Sodium e Sodium Mera [facility] Metoprolol Metoprolol Yes Alfonzo [address] Tartrate Tartrate Mera with food [facility] Oshkosh Ferrous Ferrous Yes Alfonzo [address] Sulfate Sulfate Mera [facility] Amlodipine Amlodipine Yes Alfonzo [address] Besylate Besylate Mera [facility] Gabapentin Gabapentin Yes Alfonzo [address] Mera [facility] Metformin Metformin Yes Alfonzo [address] HCl HCl Mera with a [facility] - meal [facility] Vital Signs Vital Name Observation Time Observation Value Comments Source Systolic blood 2020-10-03 19:17:00 111 mm[Hg] [facility] Diastolic blood 2020-10-03 19:17:00 61 mm[Hg] [facility] Heart rate 2020-10-03 19:17:00 75 /min [facility] Body temperature 2020-10-03 19:17:00 36.94 Latesha [facility] Respiratory rate 2020-10-03 19:17:00 17 /min [facility] Oxygen saturation in 2020-10-03 19:17:00 98 /min [facility] - Arterial blood by Medical Ce nter Pulse oximetry Body weight 2020-10-03 07:05:00 51.982 kg [facility] BMI 2020-10-03 07:05:00 20.96 kg/m2 [facility] Body height 2020-09-30 05:22:00 157.5 cm [facility] Procedures Procedure Date / Time Performed Performing Clinician Souriggy e POCT-GLUCOSE METER 2020-10-03 18:09:00 Alice Jackson [facility] HEPATITIS B PCR, 2020-10-03 15:49:00 Sarkis Laboy [facility] - QUANTITATIVE [facility] HEPATITIS C PCR, 2020-10-03 15:49:00 Sarkis Laboy [facility] - [facility] POCT-GLUCOSE METER 2020-10-03 11:48:00 [facility] METER 2020-10-03 08:34:00 Alice Jackson [facility] CBC W/PLT COUNT & AUTO 2020-10-03 04:35:00 Nate Fields [facility] CBC (HEMOGRAM ONLY) 2020-10-03 04:35:00 Delmi Peguero [facility] BASIC METABOLIC PANEL (7) 2020-10-03 04:35:00 Delmi Peguero [facility] ACTIN (SMOOTH MUSCLE) 2020-10-03 04:35:00 [facility]GG [facility] ALPHA FETOPROTEIN (AFP), 2020-10-03 04:35:00 [facility] TUMOR MARKER [facility] [id number]\\, 2020-10-03 04:35:00 [facility] - SERUM [facility] ANTI-NUCLEAR ANTIBODY 2020-10-03 04:35:00 [facility] (GAMAL[facility] BILIRUBIN, DIRECT 2020-10-03 04:35:00 [facility] - [facility] CERULOPLASMIN 2020-10-03 04:35:00 [facility]IS A ANTIBODY, IGG 2020-10-03 04:35:00 [facility] HEPATITIS B SURFACE 2020-10-03 04:35:00 Delfina Nguyenq [facility]TIBODY [facility] HEPATITIS B SURFACE 2020-10-03 04:35:00 DonnellWarringtonveronica, Kiah [facility] - ANTIGEN [facility] HEPATITIS B CORE 2020-10-03 04:35:00 Wendy, Kiah [facility] St [facility] - ANTIBODY, TOTAL [facility] HEPATITIS C ANTIBODY 2020-10-03 04:35:00 [facility] MITOCHONDRIA M2 ANTIBODY 2020-10-03 04:35:00 [facility] PROTHROMBIN TIME/INR 2020-10-03 04:35:00 [facility] CBC W/PLT COUNT & AUTO 2020-10-03 04:35:00 Nate Fields [facility] POCT-GLUCOSE METER 2020-10-02 21:19:00 Alice Jackson [facility] CBC W/PLT COUNT & AUTO 2020-10-02 17:29:00 Nate Fields [facility] VANCOMYCIN LEVEL, TROUGH 2020-10-02 17:29:00 Severo Martinez [facility] CBC W/PLT COUNT & AUTO 2020-10-02 17:29:00 Nate Fields [facility] POCT-GLUCOSE METER 2020-10-02 17:24:00 Alice Jackson [facility] POCT-GLUCOSE METER 2020-10-02 11:21:00 Alice Jackson [facility] POCT-GLUCOSE METER 2020-10-02 08:03:00 Alice Jackson [facility] CBC W/PLT COUNT & AUTO 2020-10-02 03:39:00 Nate Fields [facility] COMPREHENSIVE METABOLIC 2020-10-02 03:39:00 [facility] W/PLT COUNT & AUTO 2020-10-02 03:39:00 Nate Fields [facility] POCT-GLUCOSE METER 2020-10-01 21:23:00 Alice Jackson [facility] HEMOGLOBIN A1C 2020-10-01 14:34:00 Marielena [facility] CBC W/PLT COUNT & AUTO 2020-10-01 12:08:00 [facility] CBC W/PLT COUNT & AUTO 2020-10-01 12:08:00 Angel [facility] DIFFERENTIAL [facility] POCT-GLUCOSE METER 2020-10-01 10:58:00 Alexis Jacksonurad [facility] REPORT OF PROCEDURE - 2020-10-01 10:35:58 Sarkis Laboy [facility] ENDOSCOPY [facility] VANCOMYCIN LEVEL, RANDOM 2020-10-01 10:06:00 Meghann Grier [facility] TISSUE EXAM 2020-10-01 09:43:[address] [facility] UPPER ENDOSCOPY,BIOPSY 2020-10-01 09:14:00 Sarkis Laboy [facility] POCT-GLUCOSE METER 2020-10-01 08:23:00 Renetta [facility] POCT-GLUCOSE METER 2020-10-01 05:11:00 Renetta Alice [facility] VITAMIN B12 AND FOLATE 2020-10-01 04:42:00 Laney [facility] IRON, TIBC, % SAT. 2020-10-01 04:42:00 Ford Espinoza [facility] (WITHOUT FERRITIN) [facility] 2020-10-01 04:42:00 Ford Espinoza [facility] COMPREHENSIVE METABOLIC 2020-10-01 02:44:00 Nate Fields [facility] CBC W/PLT COUNT & AUTO 2020-10-01 02:44:00 Adrienne Ortiz [facility] SARS-COV2/RT-PCR ([facility] & 2020-10-01 02:44:00 Nate Fields [facility] REF [facility] CBC W/PLT COUNT & AUTO 2020-10-01 02:44:00 Malathi OrtizUC [facility] DIFFERENTIAL [facility] CBC W/PLT COUNT & AUTO 2020-09-30 20:01:00 Angel [facility] DIFFERENTIAL [facility] CBC W/PLT COUNT & AUTO 2020-09-30 20:01:00 Angel [facility] POCT-GLUCOSE METER 2020-09-30 20:00:00 Alice Jackson [facility] CBC (HEMOGRAM ONLY) 2020-09-30 15:15:00 Nate Fields I [facility] POCT-GLUCOSE METER 2020-09-30 14:20:00 Alexis Jacksonurad [facility] US ABDOMEN LIMITED 2020-09-30 11:32:00 Ford Espinoza [facility] BLOOD CULTURE 2020-09-30 09:45:00 Planeggperm [facility] CBC W/PLT COUNT & AUTO 2020-09-30 09:22:00 Planejose angel [facility] LACTIC ACID, VENOUS 2020-09-30 09:22:00 [facility] W/ REFLEX 2020-09-30 09:22:00 [facility] URINE CULTURE [facility] BLOOD CULTURE 2020-09-30 09:22:00 [facility] W/[facility]T COUNT & AUTO 2020-09-30 09:22:00 [facility] XR CHEST 1 VIEW PORTABLE 2020-09-30 08:39:00 Adrienne Ortiz [facility] I [facility] - / BEDSIDE [facility] HEMOGLOBIN A1C 2020-09-30 06:52:[address] [facility] POCT-GLUCOSE METER 2020-09-30 06:27:00 Ford Espinoza [facility] PROTHROMBIN TIME/INR 2020-09-30 06:22:00 Malcolm Hernandez CH, I [facility] APTT 2020-09-30 06:22:00 Malcolm Hernandez [facility] COMPREHENSIVE METABOLIC 2020-09-30 06:22:00 Malcolm Hernandez [facility] REPORT OF PROCEDURE - 2020-09-30 00:00:00 ProviderSherwin [facility] ENDOSCOPY SCAN Scanning [facility] [...] Medical Ujs ter VACCINE (1)] Future Scheduled 1964 COVID-19 VACCINE (1) [facility] Test 00:[facility]:00 [code = COVID-[address] VACCINE (1)] Future Scheduled [address] [facility] 00:[facility]:00 malignant neoplasm of Medica l Center colon (procedure) [code = 399687756] Future Scheduled [address] [facility] Test 00:00:00 malignant ne[facility] colon (procedure) [code = 076812516] Future Scheduled [address] [facility] Test 00:00:00 malignant neoplasm of Medica [facility] Center colon (procedure) [code = 105059170] Future Scheduled [address] Test 00:00:00 malignant neoplasm of Medica [facility] Center colon (procedure) [code = 824573030] Future Scheduled [address] [facility] 00:00:00 malignant neoplasm of Medica [facility] Center colon (procedure) [code = 281834829] Future Scheduled [address] [facility] Test 00:00:00 malignant neoplasm of [facility]ica [facility] Center colon (procedure) [code = 141793665] Future Scheduled [address] [facility] Test 00:00:00 malignant neoplasm of Medica l Center colon (procedure) [code = 021127188] Encounters Start End Encounter Admission Attending Care Care Encounter Source Date/Time Date/Time Type Type Clinicians Facility Department ID 2021-02-24 2021-02-24 Outpatient [facility] [id number] [facility] 2021-02-17 2021-02-17 [facility] [id number] 2021-02-10 2021-02-10 Outpatient [facility] [id number] [facility] 2020-09-30 2020-10-03 [facility] [id number] [facility] 05:[facility]00 20:23:00 Encounter [facility]is Jackson[facility] 2020-09-30 2020-10-03 [facility] [id number] [facility]00 20:23:00 Encounter [facility]is [facility]ur[facility] 2020-10-01 2020-10-01 Surgery Narda [facility] [id number] 09:05:00 10:17:00 [facility] 2020-10-01 2020-10-01 Surgery Narda [facility] [id number] 09:05:00 10:17:00 [facility] 2020-10-01 2020-10-01 Anesthesia Vandana [facility] [id number] 09:24:00 10:04:00 Event Uri Garcia [facility] 2020-10-01 2020-10-01 Anesthesia Vandana [facility] [id number] 09:24:00 10:04:00 Event Uri Garcia [facility] 2020-09-30 2020-09-30 Travel [facility] [id number] [facility] 00[facility]00 [facility] 2020-09-30 2020-09-30 Travel [facility] [id number] [facility] 00[facility]00 [facility] 2020-06-24 2020-06-24 Outpatient [facility] [id number] [facility] 2020-06-03 2020-06-03 Outpatient [facility] [id number] [facility] 2020-05-25 2020-05-25 Outpatient [facility] [id number] [facility] 2020-05-13 2020-05-13 Outpatient [facility] [id number] [facility] 2020-04-29 2020-04-29 Outpatient [facility] [id number] [facility] 2020-04-15 2020-04-15 Outpatient [facility] [id number] [facility] 2020-04-15 2020-04-15 Outpatient [facility] [id number] [facility] 2020-04-07 2020-04-07 Outpatient [facility] [id number] [facility] 2020-03-26 2020-03-26 [facility] [id number] 09:10:00 09:10:00 [facility] 2019-09-21 2019-09-21 [facility] [id number] 21:47:00 21:47:00 [facility] 2019-09-19 2019-09-19 [facility] [id number] 13:30:00 13:30:00 [facility] 2019-09-10 2019-09-10 [facility] [id number] 10:15:00 10:15:00 [facility] 2019-06-20 2019-06-20 [facility] [id number] 13:20:00 13:20:00 [facility] 2019-03-21 2019-03-21 [facility] [id number] 11:20:00 11:20:00 [facility] Clinics Results Test Description Test Time [...] patients withautoimmune hepatitis (AIH) type 1, approxi xqcqyw97% of patients with a utoimmune cholangitis,chitra roximately 30% of patients with p rimary biliarycirrhosi s, and approximately 2 % of healthy people.High giulia ues are closely correlated with AIH type 1. ELIANA (test code = Performing Lab ELIANA) [facility] [address] [place] [address] Obdulia Ulrich MD, PhD, MARINA [facility] (Smooth Muscle) Antibody, [id number] 01:25:00 Test Item Value Reference Range Interpretation Comments Anti-Smooth <20 See Note: U Reference Range :<20 Muscle Ab NEGATIVE> O R = 20 (test code = POSITIVE Antibo dies [id number]) recognizing act in are the main compon [...] ELIANA (test code Performing Lab = ELIANA) [facility] [address] [place] [address] Obdulia Ulrich MD, PhD, [facility] (Smooth Muscle) Antibody, [id number] 01:25:00 Test Item Value Reference Range Interpretation Comments Anti-Smooth <20 See Note: U Reference Range :<20 Muscle Ab NEGATIVE> O R = 20 (test code = POSITIVE Antibo dies [id number]) recognizing act in are the main compon [...] ELIANA (test code Performing Lab = ELIANA) [facility] [address] [place] [address] Obdulia Ulrich MD, PhD, [facility] (Smooth Muscle) Antibody, [id number] 01:25:00 Test Item Value Reference Range Interpretation Comments Anti-Smooth <20 See Note: U Reference Range :<20 Muscle Ab NEGATIVE> O R = 20 (test code = POSITIVE Antibo dies 4440200) recognizing act in are the main compon [...] (test code Performing Lab = ELIANA) [facility] [place] [address] [place] [address] Obdulia Ulrich MD, PhD, [facility] (Smooth Muscle) Antibody, [id number] 01:25:00 Test Item Value Reference Range Interpretation Comments Anti-Smooth <20 See Note: U Reference Range :<20 Muscle Ab NEGATIVE> O R = 20 (test code = POSITIVE Antibo dies 5360302) recognizing act in are the main compon [...] ELIANA (test code Performing Lab = ELIANA) [facility] [address] [place] [address] Obdulia Ulrich MD, PhD, [facility] (Smooth Muscle) Antibody, [id number] 01:25:00 Test Item Value Reference Range Interpretation Comments Anti-Smooth <20 See Note: U Reference Range :<20 Muscle Ab NEGATIVE> O R = 20 (test code = POSITIVE Antibo dies 4625357) recognizing act in are the main compon [...] (test code Performing Lab = ELIANA) [facility] [place] [address] [place] [address] Obdulia Ulrich MD, PhD, MARINA [facility] (Smooth Muscle) Antibody, [id number] 01:25:00 Test Item Value Reference Range Interpretation [...] (test code Performing Lab = ELIANA) [facility] [address] [place] [address] Obdulia Ulrich MD, PhD, MARINA [facility]21-03-24 14:07:00 Test Item Value Reference Range Interpretation Comments Ceruloplasmin (test code 39 mg/dL 18-36 H = 20190906) ELIANA (test code = ELIANA) Performing Lab *GIULIA [facility], [address] [place] [phone] Nereida Rocha MD Lab Interpretation (test Abnormal code = 00729-1) [facility] 14:07:00 Test Item Value Reference Range Interpretation Comments Ceruloplasmin (test code 39 mg/dL 18-36 H = 6179832) ELIANA (test code = ELIANA) Performing Lab *GIULIA [facility], [address] [place] [phone] Nereida Rocha MD Lab Interpretation (test Abnormal code = 82076-0) [facility] 14:07:00 Test Item Value Reference Range Interpretation Comments Ceruloplasmin (test code 39 mg/dL 18-36 H = 3251108) ELIANA (test code = ELIANA) Performing Lab *GIULIA [facility], [address] [place] [phone] Nereida Rocha MD Lab Interpretation (test Abnormal code = 76471-0) [facility] 14:07:00 Test Item Value Reference Range Interpretation Comments Ceruloplasmin (test code 39 mg/dL 18-36 H = 7714822) ELIANA (test code = ELIANA) Performing Lab *GIULIA [facility], [address] [place], [place] [phone] Nereida Rocha MD Lab Interpretation (test Abnormal code = 11840-6) [facility] 14:07:00 Test Item Value Reference Range Interpretation Comments Ceruloplasmin (test code 39 mg/dL 18-36 H = 20190906) ELIANA (test code = ELIANA) Performing Lab *GIULIA [facility], [address] [place] [phone] Nereida Rocha MD Lab Interpretation (test Abnormal code = 01239-3) [facility] 14:07:00 Test Item Value Reference Range Interpretation Comments Ceruloplasmin (test code 39 mg/dL 18-36 H = 20190906) ELIANA (test code = ELIANA) Performing Lab *GIULIA [facility], [address] [place] [phone] Nereida Rocha MD Lab Interpretation (test Abnormal code = 67343-2) [facility] 14:07:00 Test Item Value Reference Range Interpretation Comments Ceruloplasmin (test code 39 mg/dL 18-36 H = 8461388) ELIANA (test code = ELIANA) Performing Lab *GIULIA [facility], [address] [place] [phone] Nereida Rocha MD Lab Interpretation (test Abnormal code = 80210-3) [facility]2 Antibody (IgG)2020-10-06 13:29:00 Test Item Value Reference Range Interpretation Comments Mitochondria M2 Ab 20.3 U See Note: H Reference (test code = 1192760) Range: NEGATIVE: < OR = 20.0EQUIVOCAL: 20.1-24.9POSITI VE: > OR = 25.0 ELIANA (test code = ELIANA) Performing Lab EZ [facility] [address] [place] [address] Obdulia Ulrich MD, PhD, MARINA Lab Interpretation Abnormal (test code = 35121-9) [facility] Antibody (IgG)2020-10-06 13:29:00 Test Item Value Reference Range Interpretation Comments Mitochondria M2 Ab 20.3 U See Note: H Reference (test code = 7160501) Range: NEGATIVE: < OR = 20.0EQUIVOCAL: 20.1-24.9POSITI VE: > OR = 25.0 ELIANA (test code = ELIANA) Performing Lab EZ [facility] [address] [address] Obdulia Ulrich MD, PhD, MARINA Lab Interpretation Abnormal (test code = 66126-1) [facility] Antibody (IgG)2020-10-06 13:29:00 Test Item Value Reference Range Interpretation Comments Mitochondria M2 Ab 20.3 U See Note: H Reference (test code = 4631595) Range: NEGATIVE: < OR = 20.0EQUIVOCAL: 20.1-24.9POSITI VE: > OR = 25.0 ELIANA (test code = ELIANA) Performing Lab EZ [facility] [address] [place] [address] Obdulia Ulrich MD, PhD, MARINA Lab Interpretation Abnormal (test code = 36514-0) [facility] Antibody (IgG)2020-10-06 13:29:00 Test Item Value Reference Range Interpretation Comments Mitochondria M2 Ab 20.3 U See Note: H Reference (test code = 3674611) Range: NEGATIVE: < OR = 20.0EQUIVOCAL: 20.1-24.9POSITI VE: > OR = 25.0 ELIANA (test code = ELIANA) Performing Lab EZ [facility] [address] [place] [address] Obdulia Ulrich MD, PhD, MARINA Lab Interpretation Abnormal (test code = 97109-3) [facility] Antibody (IgG)2020-10-06 13:29:00 Test Item Value Reference Range Interpretation Comments Mitochondria M2 Ab 20.3 U See Note: H Reference (test code = 4529094) Range: NEGATIVE: < OR = 20.0EQUIVOCAL: 20.1-24.9POSITI VE: > OR = 25.0 ELIANA (test code = ELIANA) Performing Lab EZ [facility] [address] [address] Obdulia Ulrich MD, PhD, MARINA Lab Interpretation Abnormal (test code = 03505-5) [facility] Antibody (IgG)2020-10-06 13:29:00 Test Item Value Reference Range Interpretation Comments Mitochondria M2 Ab 20.3 U See Note: H Reference (test code = 8506615) Range: NEGATIVE: < OR = 20.0EQUIVOCAL: 20.1-24.9POSITI VE: > OR = 25.0 ELIANA (test code = ELIANA) Performing Lab EZ [facility] [address] [address] Obdulia Ulrich MD, PhD, MARINA Lab Interpretation Abnormal (test code = 50646-8) [facility]2 Antibody (IgG)2020-10-06 13:29:00 Test Item Value Reference Range Interpretation Comments Mitochondria M2 Ab 20.3 U See Note: H Reference (test code = 7443332) Range: NEGATIVE: < OR = 20.0EQUIVOCAL: 20.1-24.9POSITI VE: > OR = 25.0 ELIANA (test code = ELIANA) Performing Lab EZ [facility] [address] [address] Obdulia Ulrich MD, PhD, MARINA Lab Interpretation Abnormal (test code = 37343-5) [facility] 2020-10-05 14:00:00 Test Item Value Reference Range Interpretation Comments Result (test code = No growth in 5 days 6463-4) [facility] ([facility]ipuncture) 2020-10-05 14:00:00 Test Item Value Reference Range Interpretation Comments Result (test code = No growth in 5 days 6463-4) [facility] (Left Venipuncture) 2020-10-05 14:00:00 Test Item Value Reference Range Interpretation Comments Result (test code = No growth in 5 days 6463-4) [facility] Culture - Routine (Left Venipuncture) 2020-10-05 14:00:00 Test Item Value Reference Range Interpretation Comments Result (test code = No growth in 5 days 6463-4) [facility] Culture - Routine (Left Venipuncture) 2020-10-05 14:00:00 Test Item Value Reference Range Interpretation Comments Result (test code = No growth in 5 days 6463-4) [facility] Culture - Routine (Left Venipuncture) 2020-10-05 14:00:00 Test Item Value Reference Range Interpretation Comments Result (test code = No growth in 5 days 6463-4) [facility] Culture - Routine (Left Venipuncture) 2020-10-05 14:00:00 Test Item Value Reference Range Interpretation Comments Result (test code = No growth in 5 days 6463-4) [id number]:00 Test Item Value Reference Range Interpretation Comments CULTURE (BEAKER) (test No growth in 5 days code = 1095) BLOOD [id number] 11:00:00 Test Item Value Reference Range Interpretation Comments CULTURE (BEAKER) (test No growth in 5 days code = 1095) Hepatitis B PCR, [id number] 20:15:00 Test Item Value Reference Range Interpretation Comments HBV PCR, Quantitative HBV DNA not detected HBV DNA not (test code = 58560-9) detected ELIANA (test code = ELIANA) This test uses a Real-Time Polymerase Chain Reaction (RT-PCR) methodology and was performed using MADONNA AmpliPrep/MADONNA TaqMan HBV Test, v2.0 ([employer] Reportable range for this assay is 20 - 170,000,000 IU per mL (1.30 - 8.23 Log IU/mL). Lab Interpretation Normal (test code = 86107-7) [facility], [id number] 20:15:00 Test Item Value Reference Range Interpretation Comments HBV PCR, Quantitative HBV DNA not detected HBV DNA not (test code = 60099-9) detected ELIANA (test code = ELIANA) This test uses a Real-Time Polymerase Chain Reaction (RT-PCR) methodology and was performed using [employer] AmpliPrep/MADONNA TaqMan HBV Test, v2.0 ([employer] Reportable range for this assay is 20 - 170,000,000 IU per mL (1.30 - 8.23 Log IU/mL). Lab Interpretation Normal (test code = 58457-1) [facility] B PCR, [id number] 20:15:00 Test Item Value Reference Range Interpretation Comments HBV PCR, Quantitative HBV DNA not detected HBV DNA not (test code = 85107-8) detected ELIANA (test code = ELIANA) This test uses a Real-Time Polymerase Chain Reaction (RT-PCR) methodology and was performed using [employer] AmpliPrep/MADONNA TaqMan HBV Test, v2.0 ([employer] Reportable range for this assay is 20 - 170,000,000 IU per mL (1.30 - 8.23 Log IU/mL). Lab Interpretation Normal (test code = 62652-1) [facility] B PCR, [id number] 20:15:00 Test Item Value Reference Range Interpretation Comments HBV PCR, Quantitative HBV DNA not detected HBV DNA not (test code = 07447-9) detected ELIANA (test code = ELIANA) This test uses a Real-Time Polymerase Chain Reaction (RT-PCR) methodology and was performed using [employer]NA AmpliPrep/MADONNA TaqMan HBV Test, v2.0 ([employer] Reportable range for this assay is 20 - 170,000,000 IU per mL (1.30 - 8.23 Log IU/mL). Lab Interpretation Normal (test code = 94910-5) [facility], [id number] 20:15:00 Test Item Value Reference Range Interpretation Comments HBV PCR, Quantitative HBV DNA not detected HBV DNA not (test code = 69261-9) detected ELIANA (test code = ELIANA) This test uses a Real-Time Polymerase Chain Reaction (RT-PCR) methodology and was performed using [employer] AmpliPrep/MADONNA TaqMan HBV Test, v2.0 ([employer] Reportable range for this assay is 20 - 170,000,000 IU per mL (1.30 - 8.23 Log IU/mL). Lab Interpretation Normal (test code = 71889-0) [facility], [id number] 20:15:00 Test Item Value Reference Range Interpretation Comments HBV PCR, Quantitative HBV DNA not detected HBV DNA not (test code = 56836-5) detected ELIANA (test code = ELIANA) This test uses a Real-Time Polymerase Chain Reaction (RT-PCR) methodology and was performed using [employer] AmpliPrep/MADONNA TaqMan HBV Test, v2.0 ([employer] Reportable range for this assay is 20 - 170,000,000 IU per mL (1.30 - 8.23 Log IU/mL). Lab Interpretation Normal (test code = 12188-5) [facility] B PCR, [id number] 20:15:00 Test Item Value Reference Range Interpretation Comments HBV PCR, Quantitative HBV DNA not detected HBV DNA not (test code = 08635-6) detected ELIANA (test code = ELIANA) This test uses a Real-Time Polymerase Chain Reaction (RT-PCR) methodology and was performed using [employer] AmpliPrep/MADONNA TaqMan HBV Test, v2.0 ([employer] Reportable range for this assay is 20 - 170,000,000 IU per mL (1.30 - 8.23 Log IU/mL). Lab Interpretation Normal (test code = 41248-5) [facility], [id number] 20:15:00 Test Item Value Reference Range Interpretation Comments HBV RESULT COMPONENT HBV DNA not detected HBV DNA not detected (BEAKER) (test code = 2701) This test uses a Real-Time Polymerase Chain Reaction (RT-PCR) methodology and was performed using [employer] AmpliPrep/MADONNA TaqMan HBV Test, v2.0 ([employer]Reportable range for this assay is 20 - 170,000,000 IU per mL (1.30 - 8.23 Log IU/mL).Hepatitis C PCR, [id number] 19:56:00 Test Item Value Reference Range Interpretation Comments HCV PCR, Quantitative [id number] See_Comment H [Auto mated (test code = 08378-0) messag e] The system which generated this result transmitted reference range : <15 IU/mL. The reference range was not used to interpret this result as normal/abnormal . ELIANA (test code = ELIANA) This test uses a Real-Time Polymerase Chain Reaction (RT-PCR) methodology and was performed using [employer]NA Ampliprep/MADONNA TaqMan HCV test kit version 2.0 ([employer] Reportable range for this assay is 15 - 100,000,000 IU per mL (1.18 - 8.00 Log IU/mL). Lab Interpretation Abnormal (test code = 79165-7) [facility] C PCR, [id number] 19:56:00 Test Item Value Reference Range Interpretation Comments HCV PCR, Quantitative [id number] See_Comment H [Auto mated (test code = 45510-8) messag e] The system which generated this result transmitted reference range : <15 IU/mL. The reference range was not used to interpret this result as normal/abnormal . ELIANA (test code = ELIANA) This test uses a Real-Time Polymerase Chain Reaction (RT-PCR) methodology and was performed using [employer] Ampliprep/MADONNA TaqMan HCV test kit version 2.0 ([employer] Reportable range for this assay is 15 - 100,000,000 IU per mL (1.18 - 8.00 Log IU/mL). Lab Interpretation Abnormal (test code = 58538-7) [facility] C PCR, [id number] 19:56:00 Test Item Value Reference Range Interpretation Comments HCV PCR, Quantitative [id number] See_Comment H [Auto mated (test code = 80999-9) messag e] The system which generated this result transmitted reference range : <15 IU/mL. The reference range was not used to interpret this result as normal/abnormal . ELIANA (test code = ELIANA) This test uses a Real-Time Polymerase Chain Reaction (RT-PCR) methodology and was performed using [employer] Ampliprep/MADONNA TaqMan HCV test kit version 2.0 ([employer] Reportable range for this assay is 15 - 100,000,000 IU per mL (1.18 - 8.00 Log IU/mL). Lab Interpretation Abnormal (test code = 04390-3) [facility] C PCR, [id number] 19:56:00 Test Item Value Reference Range Interpretation Comments HCV PCR, Quantitative [id number] See_Comment H [Auto mated (test code = 37160-1) messag e] The system which generated this result transmitted reference range : <15 IU/mL. The reference range was not used to interpret this result as normal/abnormal . ELIANA (test code = ELIANA) This test uses a Real-Time Polymerase Chain Reaction (RT-PCR) methodology and was performed using [employer] Ampliprep/MADONNA TaqMan HCV test kit version 2.0 ([employer] Reportable range for this assay is 15 - 100,000,000 IU per mL (1.18 - 8.00 Log IU/mL). Lab Interpretation Abnormal (test code = 02799-6) [facility] C PCR, [id number] 19:56:00 Test Item Value Reference Range Interpretation Comments HCV PCR, Quantitative 073522 See_Comment H [Auto mated (test code = 11378-8) messag e] The system which generated this result transmitted reference range : <15 IU/mL. The reference range was not used to interpret this result as normal/abnormal . ELIANA (test code = ELIANA) This test uses a Real-Time Polymerase Chain Reaction (RT-PCR) methodology and was performed using [employer] Ampliprep/MADONNA TaqMan HCV test kit version 2.0 ([employer] Reportable range for this assay is 15 - 100,000,000 IU per mL (1.18 - 8.00 Log IU/mL). Lab Interpretation Abnormal (test code = 23845-5) [facility] C PCR, [id number] 19:56:00 Test Item Value Reference Range Interpretation Comments HCV PCR, Quantitative [id number] See_Comment H [Auto mated (test code = 27530-6) messag e] The system which generated this result transmitted reference range : <15 IU/mL. The reference range was not used to interpret this result as normal/abnormal . ELIANA (test code = ELIANA) This test uses a Real-Time Polymerase Chain Reaction (RT-PCR) methodology and was performed using M[employer]NA Ampliprep/MADONNA TaqMan HCV test kit version 2.0 ([employer] Reportable range for this assay is 15 - 100,000,000 IU per mL (1.18 - 8.00 Log IU/mL). Lab Interpretation Abnormal (test code = 12318-9) [facility], [id number] 19:56:00 Test Item Value Reference Range Interpretation Comments HCV PCR, Quantitative [id number] See_Comment H [Auto mated (test code = 43122-3) messag e] The system which generated this result transmitted reference range : <15 IU/mL. The reference range was not used to interpret this result as normal/abnormal . ELIANA (test code = ELIANA) This test uses a Real-Time Polymerase Chain Reaction (RT-PCR) methodology and was performed using [employer] Ampliprep/MADONNA TaqMan HCV test kit version 2.0 ([employer] Reportable range for this assay is 15 - 100,000,000 IU per mL (1.18 - 8.00 Log IU/mL). Lab Interpretation Abnormal (test code = 41348-9) [facility], [id number] 19:56:00 Test Item Value Reference Range Interpretation Comments HCV NUMERIC RESULT (BEAKER) 965112 IU/mL <15 H (test code = 2700) This test uses a Real-Time Polymerase Chain Reaction (RT-PCR) methodology and was performed using M[employer]NA Ampliprep/MADONNA TaqMan HCV test kit version 2.0 ([employer]Reportable range for this assay is 15 - 100,000,000 IU per mL (1.18 - 8.00 Log IU/mL).Anti-Nuclear Antibody (GAMAL) 2020-10-04 12:41:00 Test Item Value Reference Range Interpretation Comments GAMAL (test code = 17683-8) Negative Negative ELIANA (test code = ELIANA) Test performed by IFA method. Lab Interpretation (test Normal code = 77332-8) [facility]2020-10-04 12:41:00 Test Item Value Reference Range Interpretation Comments GAMAL (test code = 60843-6) Negative Negative ELIANA (test code = ELIANA) Test performed by IFA method. Lab Interpretation (test Normal code = 92592-3) [facility]2020-10-04 12:41:00 Test Item Value Reference Range Interpretation Comments GAMAL (test code = 97906-3) Negative Negative ELIANA (test code = ELIANA) Test performed by IFA method. Lab Interpretation (test Normal code = 12494-5) [facility]2020-10-04 12:41:00 Test Item Value Reference Range Interpretation Comments GAMAL (test code = 26993-0) Negative Negative ELIANA (test code = ELIANA) Test performed by IFA method. Lab Interpretation (test Normal code = 21025-6) [facility]AL[facility]2020-10-04 12:41:00 Test Item Value Reference Range Interpretation Comments GAMAL (test code = 26168-3) Negative Negative ELIANA (test code = ELIANA) Test performed by IFA method. Lab Interpretation (test Normal code = 89066-3) [facility]AL[facility]2020-10-04 12:41:00 Test Item Value Reference Range Interpretation Comments GAMAL (test code = 56822-1) Negative Negative ELIANA (test code = ELIANA) Test performed by IFA method. Lab Interpretation (test Normal code = 84028-2) [facility]AL[facility]2020-10-04 12:41:00 Test Item Value Reference Range Interpretation Comments GAMAL (test code = 53392-7) Negative Negative ELIANA (test code = ELIANA) Test performed by IFA method. Lab Interpretation (test Normal code = 44526-0) [facility]GAMAL)2020-10-04 12:41:00 Test Item Value Reference Range Interpretation Comments ANTI-NUCLEAR ANTIBODY (GAMAL) (BEAKER) Negative Negative (test code = 418) Test performed by IFA method.POC-Glucose [id number] 18:23:00 Test Item Value Reference Range Interpretation Comments POC-Glucose Meter (test 127 mg/dL 70-110 H : TE STED AT [facility] code = 1534) [address] [facility] [place], [address]: Top Stitcher/Techni min ID = [id number] for Igbalajobi, She neto Lab Interpretation (test Abnormal code = 70321-9) [facility]-Glucose [id number] 18:23:00 Test Item Value Reference Range Interpretation Comments POC-Glucose Meter (test 127 mg/dL 70-110 H : TE STED AT [facility] code = 1538) [address] [facility], [address] 30: Top Stitcher/Techni min ID = [id number] for Igbalajobi, She neto Lab Interpretation (test Abnormal code = 06960-0) [facility]-Glucose [id number] 18:23:00 Test Item Value Reference Range Interpretation Comments POC-Glucose Meter (test 127 mg/dL 70-110 H : TE STED AT [facility] code = 1538) [address] [place] [address], [address]70 30: Top Stitcher/Techni min ID = [id number] for Igbalajobi, She neto Lab Interpretation (test Abnormal code = 16367-3) [facility]-Glucose [id number] 18:23:00 Test Item Value Reference Range Interpretation Comments POC-Glucose Meter (test 127 mg/dL 70-110 H : TE STED AT [facility] code = 1538) [address] [place] [address], [address]70 30: Top Stitcher/Techni min ID = [id number] for Igbalajobi, She neto Lab Interpretation (test Abnormal code = 92283-1) [facility]-Glucose [id number] 18:23:00 Test Item Value Reference Range Interpretation Comments POC-Glucose Meter (test 127 mg/dL 70-110 H : TE STED AT [facility] code = 1538) [address] [place] [address], 770 30: Top Stitcher/Techni min ID = [id number] for Igbalajobi, She neto Lab Interpretation (test Abnormal code = 36813-6) [facility]-Glucose [id number] 18:23:00 Test Item Value Reference Range Interpretation Comments POC-Glucose Meter (test 127 mg/dL 70-110 H : TE STED AT [facility] code = 1538) [address] [place] [address], [address] 30: Top Stitcher/Techni min ID = [id number] for Igbalajobi, She neto Lab Interpretation (test Abnormal code = 33503-7) [facility] [id number] 18:23:00 Test Item Value Reference Range Interpretation Comments POC-Glucose Meter (test 127 mg/dL 70-110 H : TE STED AT [facility] code = 1538) [address] [facility], [address] 30: Top Stitcher/Techni min ID = [id number] for Katelynn Ramirez neto Lab Interpretation (test Abnormal code = 70181-6) [facility] [id number] 18:23:00 Test Item Value Reference Range Interpretation Comments POC-GLUCOSE METER 127 mg/dL 70-110 H : TESTED A T [facility] 6720 (BEAKER) (test code = [facility], 1538) [address]: Top Stitcher/Techni min ID = [id number] for Katelynn Ramirez neto POCT-GLUCOSE [id number] 12:00:00 Test Item Value Reference Range Interpretation Comments POC-GLUCOSE METER 78 mg/dL 70-110 : TESTED A T [facility] 6720 (BEAKER) (test code = [facility], 1538) [address]: Top Stitcher/Techni min ID = [id number] for Kassandra Woods Hepatitis B core antibody, [id number] 10:45:00 Test Item Value Reference Range Interpretation Comments Hep B Core Total Ab (test Reactive Nonreactive A code = 64074-9) ELIANA (test code = ELIANA) Top Stitcher ID - DBOperator ID - DBOperator ID - DB Lab Interpretation (test Abnormal code = 68445-1) [facility], [id number] 10:45:00 Test Item Value Reference Range Interpretation Comments Hep B Core Total Ab (test Reactive Nonreactive A code = 52027-7) ELIANA (test code = ELIANA) Top Stitcher ID - DBOperator ID - DBOperator ID - DB Lab Interpretation (test Abnormal code = 81689-8) [facility], [id number] 10:45:00 Test Item Value Reference Range Interpretation Comments Hep B Core Total Ab (test Reactive Nonreactive A code = 04216-3) ELIANA (test code = ELIANA) Top Stitcher ID - DBOperator ID - DBOperator ID - DB Lab Interpretation (test Abnormal code = 31014-6) [facility], [id number] 10:45:00 Test Item Value Reference Range Interpretation Comments Hep B Core Total Ab (test Reactive Nonreactive A code = 93956-1) ELIANA (test code = ELIANA) Top Stitcher ID - DBOperator ID - DBOperator ID - DB Lab Interpretation (test Abnormal code = 22065-9) [facility], [id number] 10:45:00 Test Item Value Reference Range Interpretation Comments Hep B Core Total Ab (test Reactive Nonreactive A code = 37841-0) ELIANA (test code = ELIANA) Top Stitcher ID - DBOperator ID - DBOperator ID - DB Lab Interpretation (test Abnormal code = 50240-8) [facility] B core antibody, [id number] 10:45:00 Test Item Value Reference Range Interpretation Comments Hep B Core Total Ab (test Reactive Nonreactive A code = 95373-8) ELIANA (test code = ELIANA) Top Stitcher ID - DBOperator ID - DBOperator ID - DB Lab Interpretation (test Abnormal code = 90091-3) [facility], [id number] 10:45:00 Test Item Value Reference Range Interpretation Comments Hep B Core Total Ab (test Reactive Nonreactive A code = 83254-9) ELIANA (test code = ELIANA) Top Stitcher ID - DBOperator ID - DBOperator ID - DB Lab Interpretation (test Abnormal code = 73130-8) [facility], [id number] 10:45:00 Test Item Value Reference Range Interpretation Comments HEPATITIS B CORE TOTAL ANTIBODY Reactive Nonreactive A (BEAKER) (test code = 497) Top Stitcher ID - DBOperator ID - DBOperator ID - DBPOCT-GLUCOSE [id number] 08:50:00 Test Item Value Reference Range Interpretation Comments POC-GLUCOSE METER 83 mg/dL 70-110 : TESTED A T [facility] 6720 (BEAKER) (test code = [place], 1538) [address]: Top Stitcher/Techni min ID = [id number] for Kassandra Woods Gttsw-3-ejyrsuhhzth9346-03-21 08:30:00 Test Item Value Reference Range Interpretation Comments A-1 Antitrypsin (test 189.40 mg/dL 90-200 code = 1825-9) ELIANA (test code = ELIANA) Top Stitcher ID - DBOperator ID - DBOperator ID - DB Lab Interpretation (test Normal code = 98772-9) [facility]-gciijzhqokm4593-10-80 08:30:00 Test Item Value Reference Range Interpretation Comments A-1 Antitrypsin (test 189.40 mg/dL 90-200 code = 1825-9) ELIANA (test code = ELIANA) Top Stitcher ID - DBOperator ID - DBOperator ID - DB Lab Interpretation (test Normal code = 23730-6) [facility]-mdfapzfxkqn2741-98-37 08:30:00 Test Item Value Reference Range Interpretation Comments A-1 Antitrypsin (test 189.40 mg/dL 90-200 code = 1825-9) ELIANA (test code = ELIANA) Top Stitcher ID - DBOperator ID - DBOperator ID - DB Lab Interpretation (test Normal code = 27729-6) [facility]-eoazniinnfg9417-02-34 08:30:00 Test Item Value Reference Range Interpretation Comments A-1 Antitrypsin (test 189.40 mg/dL 90-200 code = 1825-9) ELIANA (test code = ELIANA) Top Stitcher ID - DBOperator ID - DBOperator ID - DB Lab Interpretation (test Normal code = 72858-8) [facility]-rzrdnxxfqij5232-28-94 08:30:00 Test Item Value Reference Range Interpretation Comments A-1 Antitrypsin (test 189.40 mg/dL 90-200 code = 1825-9) ELIANA (test code = ELIANA) Top Stitcher ID - DBOperator ID - DBOperator ID - DB Lab Interpretation (test Normal code = 26649-2) [facility]-aggoavfavhr2973-83-65 08:30:00 Test Item Value Reference Range Interpretation Comments A-1 Antitrypsin (test 189.40 mg/dL 90-200 code = 1825-9) ELIANA (test code = ELIANA) Top Stitcher ID - DBOperator ID - DBOperator ID - DB Lab Interpretation (test Normal code = 34640-3) [facility]-ozpodmnmpmz1031-47-93 08:30:00 Test Item Value Reference Range Interpretation Comments A-1 Antitrypsin (test 189.40 mg/dL 90.00-200.00 code = 1825-9) ELIANA (test code = ELIANA) Top Stitcher ID - DBOperator ID - DBOperator ID - DB Lab Interpretation (test Normal code = 98170-2) [facility]-[id number] 08:30:00 Test Item Value Reference Range Interpretation Comments ALPHA-1 ANTITRYPSIN (BEAKER) 189.40 mg/dL 90.00-200.00 (test code = 502) Top Stitcher ID - DBOperator ID - DBOperator ID - DBHepatitis A antibody, IgG 2020-10-03 07:01:00 Test Item Value Reference Range Interpretation Comments Hep A IgG (test code = Reactive Nonreactive A 13657-8) ELIANA (test code = ELIANA) Top Stitcher ID - DB Lab Interpretation (test Abnormal code = 77465-3) [facility], [id number] 07:01:00 Test Item Value Reference Range Interpretation Comments Hep A IgG (test code = Reactive Nonreactive A 48913-9) ELIANA (test code = ELIANA) Top Stitcher ID - DB Lab Interpretation (test Abnormal code = 09702-7) [facility] antibody, [id number] 07:01:00 Test Item Value Reference Range Interpretation Comments Hep A IgG (test code = Reactive Nonreactive A 77444-6) ELIANA (test code = ELIANA) Top Stitcher ID - DB Lab Interpretation (test Abnormal code = 49095-4) [facility] antibody, [id number] 07:01:00 Test Item Value Reference Range Interpretation Comments Hep A IgG (test code = Reactive Nonreactive A 78420-7) ELIANA (test code = ELIANA) Top Stitcher ID - DB Lab Interpretation (test Abnormal code = 75887-9) [facility] antibody, [id number] 07:01:00 Test Item Value Reference Range Interpretation Comments Hep A IgG (test code = Reactive Nonreactive A 92185-9) ELIANA (test code = ELIANA) Top Stitcher ID - DB Lab Interpretation (test Abnormal code = 30811-3) [facility] A antibody, [id number] 07:01:00 Test Item Value Reference Range Interpretation Comments Hep A IgG (test code = Reactive Nonreactive A 78742-1) ELIANA (test code = ELIANA) Top Stitcher ID - DB Lab Interpretation (test Abnormal code = 64942-2) [facility], [id number] 07:01:00 Test Item Value Reference Range Interpretation Comments Hep A IgG (test code = Reactive Nonreactive A 35785-2) ELIANA (test code = ELIANA) Top Stitcher ID - DB Lab Interpretation (test Abnormal code = 51242-6) [facility], [id number] 07:01:00 Test Item Value Reference Range Interpretation Comments HEPATITIS A IGG ANTIBODY (BEAKER) Reactive Nonreactive A (test code = 2797) Top Stitcher ID - DBpatitis C ldgeanuf7949-85-68 06:59:00 Test Item Value Reference Range Interpretation Comments Hepatitis C Ab (test code = Reactive Nonreactive A 18482-7) ELIANA (test code = ELIANA) Top Stitcher ID - DB Lab Interpretation (test Abnormal code = 72584-5) [facility] [facility] [id number] 06:59:00 Test Item Value Reference Range Interpretation Comments Hepatitis C Ab (test code = Reactive Nonreactive A 06341-6) ELIANA (test code = ELIANA) Top Stitcher ID - DB Lab Interpretation (test Abnormal code = 10720-6) [facility] [id number] 06:59:00 Test Item Value Reference Range Interpretation Comments Hepatitis C Ab (test code = Reactive Nonreactive A 55579-0) ELIANA (test code = ELIANA) Top Stitcher ID - DB Lab Interpretation (test Abnormal code = 58953-0) [facility] fisobhgc1676-54-61 06:59:00 Test Item Value Reference Range Interpretation Comments Hepatitis C Ab (test code = Reactive Nonreactive A 06330-4) ELIANA (test code = ELIANA) Top Stitcher ID - DB Lab Interpretation (test Abnormal code = 72364-6) [facility] C vzwsnlip4959-89-97 06:59:00 Test Item Value Reference Range Interpretation Comments Hepatitis C Ab (test code = Reactive Nonreactive A 22055-7) ELIANA (test code = ELIANA) Top Stitcher ID - DB Lab Interpretation (test Abnormal code = 65679-4) [facility] C dgcjeztt4431-63-27 06:59:00 Test Item Value Reference Range Interpretation Comments Hepatitis C Ab (test code = Reactive Nonreactive A 09463-3) ELIANA (test code = ELIANA) Top Stitcher ID - DB Lab Interpretation (test Abnormal code = 46113-9) [facility] C [id number] 06:59:00 Test Item Value Reference Range Interpretation Comments Hepatitis C Ab (test code = Reactive Nonreactive A 84011-6) ELIANA (test code = ELIANA) Top Stitcher ID - DB Lab Interpretation (test Abnormal code = 64343-6) [facility] [id number] 06:59:00 Test Item Value Reference Range Interpretation Comments HEPATITIS C ANTIBODY (BEAKER) (test Reactive Nonreactive A code = 367) Top Stitcher ID - DBBasic Metabolic Bxuvk9537-34-93 06:38:00 Test Item Value Reference Range Interpretation [...] (test code = 7.8 mg/dL 8.4-10.2 L 58174-1) EGFR (test code = 39 mL/min/1.73 [place] [address]-6) NOT ACCURATE CREATININE CLEARANCE IN PREDICTING GLOMERULAR FILTRATION RATE . ESTIMATED GFR I S NOT APPLICABLE FOR DIALYSIS PATIENTS. ELIANA (test code = ELIANA) Top Stitcher ID - EDASI Lab Interpretation Abnormal (test code = 34661-3) [facility] [id number] 06:38:00 Test Item Value Reference Range Interpretation Comments Bilirubin, Direct (test 0.2 mg/dL 0.1-0.5 code = 1968-7) ELIANA (test code = ELIANA) Top Stitcher ID - EDASI Lab Interpretation (test Normal code = 84087-2) [facility] Kngjt4958-01-25 06:38:00 Test Item Value Reference Range Interpretation [...] (test code = 7.8 mg/dL 8.4-10.2 L 51258-0) EGFR (test code = 39 mL/min/1.73 [place] [address]-6) NOT ACCURATE CREATININE CLEARANCE IN PREDICTING GLOMERULAR FILTRATION RATE . ESTIMATED GFR I S NOT APPLICABLE FOR DIALYSIS PATIENTS. ELIANA (test code = ELIANA) Top Stitcher ID - EDASI Lab Interpretation Abnormal (test code = 34392-7) [facility], [id number] 06:38:00 Test Item Value Reference Range Interpretation Comments Bilirubin, Direct (test 0.2 mg/dL 0.1-0.5 code = 1968-7) ELIANA (test code = ELIANA) Top Stitcher ID - EDASI Lab Interpretation (test Normal code = 34568-4) [facility] Metabolic [id number] 06:38:00 Test Item Value Reference Range Interpretation [...] (test code = 7.8 mg/dL 8.4-10.2 L 66480-9) EGFR (test code = 39 mL/min/1.73 [place] [address]-6) NOT ACCURATE CREATININE CLEARANCE IN PREDICTING GLOMERULAR FILTRATION RATE . ESTIMATED GFR I S NOT APPLICABLE FOR DIALYSIS PATIENTS. ELIANA (test code = ELIANA) Top Stitcher ID - EDASI Lab Interpretation Abnormal (test code = 42508-8) [facility], [id number] 06:38:00 Test Item Value Reference Range Interpretation Comments Bilirubin, Direct (test 0.2 mg/dL 0.1-0.5 code = 1968-01) ELIANA (test code = ELIANA) Top Stitcher ID - EDASI Lab Interpretation (test Normal code = 07819-6) [facility] [id number] 06:38:00 Test Item Value Reference Range Interpretation [...] (test code = 7.8 mg/dL 8.4-10.2 L 27877-2) EGFR (test code = 39 mL/min/1.73 [place] [address]-4) NOT ACCURATE CREATININE CLEARANCE IN PREDICTING GLOMERULAR FILTRATION RATE . ESTIMATED GFR I S NOT APPLICABLE FOR DIALYSIS PATIENTS. ELIANA (test code = ELIANA) Top Stitcher ID - EDASI Lab Interpretation Abnormal (test code = 04318-0) [facility], [id number] 06:38:00 Test Item Value Reference Range Interpretation Comments Bilirubin, Direct (test 0.2 mg/dL 0.1-0.5 code = 1968-) ELIANA (test code = ELIANA) Top Stitcher ID - EDASI Lab Interpretation (test Normal code = 09798-1) [facility] [id number] 06:38:00 Test Item Value Reference Range Interpretation [...] (test code = 7.8 mg/dL 8.4-10.2 L 35279-8) EGFR (test code = 39 mL/min/1.73 [place] [address]-7) NOT ACCURATE CREATININE CLEARANCE IN PREDICTING GLOMERULAR FILTRATION RATE . ESTIMATED GFR I S NOT APPLICABLE FOR DIALYSIS PATIENTS. ELIANA (test code = ELIANA) Top Stitcher ID - EDASI Lab Interpretation Abnormal (test code = 93016-0) [facility], [id number] 06:38:00 Test Item Value Reference Range Interpretation Comments Bilirubin, Direct (test 0.2 mg/dL 0.1-0.5 code = 1968-7) ELIANA (test code = ELIANA) Top Stitcher ID - EDASI Lab Interpretation (test Normal code = 83129-8) [facility] [id number] 06:38:00 Test Item Value Reference Range Interpretation [...] (test code = 7.8 mg/dL 8.4-10.2 L 50334-8) EGFR (test code = 39 mL/min/1.73 sq m [facility] [address]-9) NOT ACCURATE CREATININE CLEARANCE IN PREDICTING GLOMERULAR FILTRATION RATE . ESTIMATED GFR I S NOT APPLICABLE FOR DIALYSIS PATIENTS. ELIANA (test code = ELIANA) Top Stitcher ID - EDASI Lab Interpretation Abnormal (test code = 14086-4) [facility], [id number] 06:38:00 Test Item Value Reference Range Interpretation Comments Bilirubin, Direct (test 0.2 mg/dL 0.1-0.5 code = 1968-01) ELIANA (test code = ELIANA) Top Stitcher ID - EDASI Lab Interpretation (test Normal code = 48581-1) [facility] [id number] 06:38:00 Test Item Value Reference Range Interpretation [...] (test code = 7.8 mg/dL 8.4-10.2 L 31437-2) EGFR (test code = 39 mL/min/1.73 [place] [address]-3) NOT ACCURATE CREATININE CLEARANCE IN PREDICTING GLOMERULAR FILTRATION RATE . ESTIMATED GFR I S NOT APPLICABLE FOR DIALYSIS PATIENTS. ELIANA (test code = ELIANA) Top Stitcher ID - EDASI Lab Interpretation Abnormal (test code = 04417-5) [facility], [id number] 06:38:00 Test Item Value Reference Range Interpretation Comments Bilirubin, Direct (test 0.2 mg/dL 0.1-0.5 code = 1968-7) ELIANA (test code = ELIANA) Top Stitcher ID - EDASI Lab Interpretation (test Normal code = 97671-4) [facility], [id number] 06:38:00 Test Item Value Reference Range Interpretation Comments BILIRUBIN DIRECT (BEAKER) (test 0.2 mg/dL 0.1-0.5 code = 706) Top Stitcher ID - EDASIBASIC METABOLIC [id number] 06:38:00 Test Item Value Reference Range Interpretation [...] S NOT APPLICABLE FOR DIALYSIS PATIEN TS. Top Stitcher ID - EDASIHepatitis B surface ipahwvdp9934-07-50 06:14:00 Test Item Value Reference Range Interpretation Comments Hep B S Ab (test code <8.0 See_Comment [Auto mated = 54152-8) message] The system which generated this result transmit altagracia reference range : <8.0 mIU/mL. Th e reference range was not used to interpret this result as normal/abnormal . ELIANA (test code = ELIANA) Top Stitcher ID - DB Lab Interpretation Normal (test code = 15085-0) [facility] surface sgsshxtu4553-38-08 06:14:00 Test Item Value Reference Range Interpretation Comments Hep B S Ab (test code <8.0 See_Comment [Auto mated = 66639-8) message] The system which generated this result transmit altagracia reference range : <8.0 mIU/mL. Th e reference range was not used to interpret this result as normal/abnormal . ELIANA (test code = ELIANA) Top Stitcher ID - DB Lab Interpretation Normal (test code = 95757-8) [facility] surface seysrhtd7345-23-34 06:14:00 Test Item Value Reference Range Interpretation Comments Hep B S Ab (test code <8.0 See_Comment [Auto mated = 82334-1) message] The system which generated this result transmit altagracia reference range : <8.0 mIU/mL. Th e reference range was not used to interpret this result as normal/abnormal . ELIANA (test code = ELIANA) Top Stitcher ID - DB Lab Interpretation Normal (test code = 65912-7) [facility] surface onmqmohu8670-25-70 06:14:00 Test Item Value Reference Range Interpretation Comments Hep B S Ab (test code <8.0 See_Comment [Auto mated = 47382-7) message] The system which generated this result transmit altagracia reference range : <8.0 mIU/mL. Th e reference range was not used to interpret this result as normal/abnormal . ELIANA (test code = ELIANA) Top Stitcher ID - DB Lab Interpretation Normal (test code = 63672-1) [facility] B surface hmflbffj7202-42-65 06:14:00 Test Item Value Reference Range Interpretation Comments Hep B S Ab (test code <8.0 See_Comment [Auto mated = 57349-0) message] The system which generated this result transmit altagracia reference range : <8.0 mIU/mL. Th e reference range was not used to interpret this result as normal/abnormal . ELIANA (test code = ELIANA) Top Stitcher ID - DB Lab Interpretation Normal (test code = 89465-0) [facility] [id number] 06:14:00 Test Item Value Reference Range Interpretation Comments Hep B S Ab (test code <8.0 See_Comment [Auto mated = 84060-7) message] The system which generated this result transmit altagracia reference range : <8.0 mIU/mL. Th e reference range was not used to interpret this result as normal/abnormal . ELIANA (test code = ELIANA) Top Stitcher ID - DB Lab Interpretation Normal (test code = 42950-2) [facility] sgpqiwfg2560-52-80 06:14:00 Test Item Value Reference Range Interpretation Comments Hep B S Ab (test code <8.0 See_Comment [Auto mated = 54736-7) message] The system which generated this result transmit altagracia reference range : <8.0 mIU/mL. Th e reference range was not used to interpret this result as normal/abnormal . ELIANA (test code = ELIANA) Top Stitcher ID - DB Lab Interpretation Normal (test code = 28110-8) [facility] SUR[facility] [id number] 06:14:00 Test Item Value Reference Range Interpretation Comments HEPATITIS B SURFACE ANTIBODY < mIU/mL <8.0 (BEAKER) (test code = 647) Top Stitcher ID - DBHepatitis B surface [id number] 06:13:00 Test Item Value Reference Range Interpretation Comments HBsAg Screen (test code Nonreactive Nonreactive = 5195-3) ELIANA (test code = ELIANA) Specimen is considered negative for HBsAg. Lab Interpretation (test Normal code = 78343-4) [facility] (AFP), tumor [id number] 06:13:00 Test Item Value Reference Range Interpretation Comments Alpha-Fetoprotein (test code 2.1 ng/mL <10.0 = 1834-1) ELIANA (test code = ELIANA) Top Stitcher ID - DB Lab Interpretation (test Normal code = 00914-6) [facility] mahounh0053-94-63 06:13:00 Test Item Value Reference Range Interpretation Comments HBsAg Screen (test code Nonreactive Nonreactive = 5195-3) ELIANA (test code = ELIANA) Specimen is considered negative for HBsAg. Lab Interpretation (test Normal code = 19864-4) [facility] (AFP), tumor [id number] 06:13:00 Test Item Value Reference Range Interpretation Comments Alpha-Fetoprotein (test code 2.1 ng/mL <10.0 = 1834-1) ELIANA (test code = ELIANA) Top Stitcher ID - DB Lab Interpretation (test Normal code = 89640-8) [facility] [id number] 06:13:00 Test Item Value Reference Range Interpretation Comments HBsAg Screen (test code Nonreactive Nonreactive = 5195-3) ELIANA (test code = ELIANA) Specimen is considered negative for HBsAg. Lab Interpretation (test Normal code = 94495-7) [facility] (AFP), tumor [id number] 06:13:00 Test Item Value Reference Range Interpretation Comments Alpha-Fetoprotein (test code 2.1 ng/mL <10.0 = 1834-1) ELIANA (test code = ELIANA) Top Stitcher ID - DB Lab Interpretation (test Normal code = 39481-2) [facility] cukadxb2827-47-93 06:13:00 Test Item Value Reference Range Interpretation Comments HBsAg Screen (test code Nonreactive Nonreactive = 5195-3) ELIANA (test code = ELIANA) Specimen is considered negative for HBsAg. Lab Interpretation (test Normal code = 01864-3) [facility] (AFP), tumor tajopk6012-65-16 06:13:00 Test Item Value Reference Range Interpretation Comments Alpha-Fetoprotein (test code 2.1 ng/mL <10.0 = 1834-1) ELIANA (test code = ELIANA) Top Stitcher ID - DB Lab Interpretation (test Normal code = 63196-4) [facility] molrssy0048-09-54 06:13:00 Test Item Value Reference Range Interpretation Comments HBsAg Screen (test code Nonreactive Nonreactive = 5195-3) ELIANA (test code = ELIANA) Specimen is considered negative for HBsAg. Lab Interpretation (test Normal code = 51257-4) [facility] (AFP), tumor icvrqr9880-50-22 06:13:00 Test Item Value Reference Range Interpretation Comments Alpha-Fetoprotein (test code 2.1 ng/mL <10.0 = 1834-1) ELIANA (test code = ELIANA) Top Stitcher ID - DB Lab Interpretation (test Normal code = 86434-8) [facility] [id number] 06:13:00 Test Item Value Reference Range Interpretation Comments HBsAg Screen (test code Nonreactive Nonreactive = 5195-3) ELIANA (test code = ELIANA) Specimen is considered negative for HBsAg. Lab Interpretation (test Normal code = 68745-7) [facility] (AFP), tumor sdhxvl2169-88-54 06:13:00 Test Item Value Reference Range Interpretation Comments Alpha-Fetoprotein (test code 2.1 ng/mL <10.0 = 1834-1) ELIANA (test code = ELIANA) Top Stitcher ID - DB Lab Interpretation (test Normal code = 61774-3) [facility] nywurod8802-15-23 06:13:00 Test Item Value Reference Range Interpretation Comments HBsAg Screen (test code Nonreactive Nonreactive = 5195-3) ELIANA (test code = ELIANA) Specimen is considered negative for HBsAg. Lab Interpretation (test Normal code = 78990-6) [facility] (AFP), tumor frwtxl4571-38-67 06:13:00 Test Item Value Reference Range Interpretation Comments Alpha-Fetoprotein (test code 2.1 ng/mL <10.0 = 1834-1) ELIANA (test code = ELIANA) Top Stitcher ID - DB Lab Interpretation (test Normal code = 60425-6) [facility] [id number] 06:13:00 Test Item Value Reference Range Interpretation Comments HEPATITIS B SURFACE ANTIGEN (2) Nonreactive Nonreactive (BEAKER) (test code = 2585) Specimen is considered negative for HBsAg.ALPHA FETOPROTEIN (AFP), TUMOR MARKER 2020-10-03 06:13:00 Test Item Value Reference Range Interpretation Comments ALPHA-FETOPROTEIN (BEAKER) (test 2.1 ng/mL <10.0 code = 1094) Top Stitcher ID - DBProthrombin time/HLF0605-28-27 05:06:00 Test Item Value Reference Interpretation Comments [...] valves. Lab Interpretation Abnormal (test code = 66476-4) [facility]Prothrom[facility] time/[id number] 05:06:00 Test Item Value Reference Interpretation Comments [...] valves. Lab Interpretation Abnormal (test code = 68729-4) [facility]Prothrombin time/[id number] 05:06:00 Test Item Value Reference Interpretation Comments [...] valves. Lab Interpretation Abnormal (test code = 41477-2) [facility]Prothrombin time/[id number] 05:06:00 Test Item Value Reference Interpretation Comments [...] valves. Lab Interpretation Abnormal (test code = 05284-2) [facility]Prothrombin time/[id number] 05:06:00 Test Item Value Reference Interpretation Comments [...] valves. Lab Interpretation Abnormal (test code = 87533-7) [facility]Prothrombin time/[id number] 05:06:00 Test Item Value Reference Interpretation Comments [...] valves. Lab Interpretation Abnormal (test code = 16642-5) [facility] HospitalProthrombin time/[id number] 05:06:00 Test Item Value Reference Interpretation Comments [...] valves. Lab Interpretation Abnormal (test code = 85069-9) [facility]PROTHROMBIN TIME/[id number] 05:06:00 Test Item Value Reference Range Interpretation Comments PROTIME (BEAKER) 14.4 seconds 11.9-14.2 H (test code = 759) INR (BEAKER) (test 1.16 See_Comment [Automat ed message] code = 370) The system [employer] generated this result transmitted ref erence [...] 8.8 See_Comment [A utomated message] The system [employer] generated this result transmitted ref erence range: 3.5 - 10 .5 K/L. The refe rence range was not u sed to interpret this result as normal/abnor mal. RBC (test code = 789-8) 2.56 See_Comment L [Au tomated message] The system [employer] generated this result transmitted ref erence range: 4.63 - 6 .08 M/L. The refe rence range was not u sed to interpret this result as normal/abnor mal. MCHC (test code = 786-4) 31.8 See_Comment L [A utomated message] The system [employer] generated this result transmitted ref erence range: [...] See_Comment [Aut omated message] 777-3) The system [employer] generated this result transmitted ref erence range: 150 - 45 0 K/CU MM. The referen ce range was not u sed to interpret this result as normal/abnor mal. MPV (test code = 10.2 fL 9.4-12.4 46909-6) nRBC (test code = 413) 0 See_Comment [Aut omated message] The system [employer] generated this result transmitted ref erence range: 0 - 0 /1 00 WBC. The refere nce range was not u sed to interpret this result as normal/abnor mal. Lab Interpretation (test Abnormal code = 60054-8) [facility] with platelet count + automated [id number] 04:58:00 Test Item Value Reference Range Interpretation Comments WBC (test code = 6690-2) 8.8 See_Comment [A utomated message] The system [employer] generated this result transmitted ref erence range: 3.5 - 10 .5 K/L. The refe rence range was not u sed to interpret this result as normal/abnor mal. RBC (test code = 789-8) 2.56 See_Comment L [Au tomated message] The system [employer] generated this result transmitted ref erence range: 4.63 - 6 .08 M/L. The refe rence range was not u sed to interpret this result as normal/abnor mal. MCHC (test code = 786-4) 31.8 See_Comment L [A utomated message] The system [employer] generated this result transmitted ref erence range: [...] See_Comment [Aut omated message] 777-3) The system [employer] generated this result transmitted ref erence range: 150 - 45 0 K/CU MM. The referen ce range was not u sed to interpret this result as normal/abnor mal. MPV (test code = 10.2 fL 9.4-12.4 15763-1) nRBC (test code = 413) 0 See_Comment [Aut omated message] The system [employer] generated this result transmitted ref erence range: [...] H [Aut omated message] 670) The system [employer] generated this result transmitted ref erence range: 1.78 - 5 .38 K/L. The refe rence range was not u sed to interpret this result as normal/abnor mal. # Lymphs (test code = 0.86 See_Comment L [Auto mated message] 414) The system [employer] generated this result transmitted ref erence range: 1.32 - 3 .57 K/L. The refe rence range was not u sed to interpret this result as normal/abnor mal. # Monos (test code = 0.72 See_Comment [Autom ated message] 415) The system [employer] generated this result transmitted ref erence range: 0.30 - 0 .82 K/L. The refe rence range was not u sed to interpret this result as normal/abnor mal. # Eos (test code = 416) 0.12 See_Comment [Au tomated message] The system [employer] generated this result transmitted ref erence range: 0.04 - 0 .54 K/L. The refe rence range was not u sed to interpret this result as normal/abnor mal. # Baso (test code = 417) 0.02 See_Comment [A utomated message] The system [employer] generated this result transmitted ref erence range: 0.01 - 0 .08 K/L. The refe rence range was not u sed to interpret this result as normal/abnor mal. Immature 1 % 0-1 Granulocytes-Relative (test code = 2801) Lab Interpretation (test Abnormal code = 95270-9) [facility]2020-10-03 04:58:00 Test Item Value Reference Range Interpretation Comments WBC (test code = 6690-2) 8.8 See_Comment [A utomated message] The system [employer] generated this result transmitted ref erence range: 3.5 - 10 .5 K/L. The refe rence range was not u sed to interpret this result as normal/abnor mal. RBC (test code = 789-8) 2.56 See_Comment L [Au tomated message] The system [employer] generated this result transmitted ref erence range: 4.63 - 6 .08 M/L. The refe rence range was not u sed to interpret this result as normal/abnor mal. MCHC (test code = 786-4) 31.8 See_Comment L [A utomated message] The system [employer] generated this result transmitted ref erence range: [...] See_Comment [Aut omated message] 777-3) The system [employer] generated this result transmitted ref erence range: 150 - 45 0 K/CU MM. The referen ce range was not u sed to interpret this result as normal/abnor mal. MPV (test code = 10.2 fL 9.4-12.4 85486-0) nRBC (test code = 413) 0 See_Comment [Aut omated message] The system [employer] generated this result transmitted ref erence range: 0 - 0 /1 00 WBC. The refere nce range was not u sed to interpret this result as normal/abnor mal. Lab Interpretation (test Abnormal code = 58411-3) [facility] with platelet count + automated [id number] 04:58:00 Test Item Value Reference Range Interpretation Comments WBC (test code = 6690-2) 8.8 See_Comment [A utomated message] The system [employer] generated this result transmitted ref erence range: 3.5 - 10 .5 K/L. The refe rence range was not u sed to interpret this result as normal/abnor mal. RBC (test code = 789-8) 2.56 See_Comment L [Au tomated message] The system [employer] generated this result transmitted ref erence range: 4.63 - 6 .08 M/L. The refe rence range was not u sed to interpret this result as normal/abnor mal. MCHC (test code = 786-4) 31.8 See_Comment L [A utomated message] The system [employer] generated this result transmitted ref erence range: [...] See_Comment [Aut omated message] 777-3) The system [employer] generated this result transmitted ref erence range: 150 - 45 0 K/CU MM. The referen ce range was not u sed to interpret this result as normal/abnor mal. MPV (test code = 10.2 fL 9.4-12.4 79290-7) nRBC (test code = 413) 0 See_Comment [Aut omated message] The system [employer] generated this result transmitted ref erence range: [...] H [Aut omated message] 670) The system [employer] generated this result transmitted ref erence range: 1.78 - 5 .38 K/L. The refe rence range was not u sed to interpret this result as normal/abnor mal. # Lymphs (test code = 0.86 See_Comment L [Auto mated message] 414) The system [employer] generated this result transmitted ref erence range: 1.32 - 3 .57 K/L. The refe rence range was not u sed to interpret this result as normal/abnor mal. # Monos (test code = 0.72 See_Comment [Autom ated message] 415) The system [employer] generated this result transmitted ref erence range: 0.30 - 0 .82 K/L. The refe rence range was not u sed to interpret this result as normal/abnor mal. # Eos (test code = 416) 0.12 See_Comment [Au tomated message] The system [employer] generated this result transmitted ref erence range: 0.04 - 0 .54 K/L. The refe rence range was not u sed to interpret this result as normal/abnor mal. # Baso (test code = 417) 0.02 See_Comment [A utomated message] The system [employer] generated this result transmitted ref erence range: 0.01 - 0 .08 K/L. The refe rence range was not u sed to interpret this result as normal/abnor mal. Immature 1 % 0-1 Granulocytes-Relative (test code = 2801) Lab Interpretation (test Abnormal code = 40850-9) [facility]-10-03 04:58:00 Test Item Value Reference Range Interpretation Comments WBC (test code = 6690-2) 8.8 See_Comment [A utomated message] The system Inbil[employer] generated this result transmitted ref erence range: 3.5 - 10 .5 K/L. The refe rence range was not u sed to interpret this result as normal/abnor mal. RBC (test code = 789-8) 2.56 See_Comment L [Au tomated message] The system [employer] generated this result transmitted ref erence range: 4.63 - 6 .08 M/L. The refe rence range was not u sed to interpret this result as normal/abnor mal. MCHC (test code = 786-4) 31.8 See_Comment L [A utomated message] The system [employer] generated this result transmitted ref erence range: [...] See_Comment [Aut omated message] 777-3) The system [employer] generated this result transmitted ref erence range: 150 - 45 0 K/CU MM. The referen ce range was not u sed to interpret this result as normal/abnor mal. MPV (test code = 10.2 fL 9.4-12.4 90466-8) nRBC (test code = 413) 0 See_Comment [Aut omated message] The system [employer] generated this result transmitted ref erence range: 0 - 0 /1 00 WBC. The refere nce range was not u sed to interpret this result as normal/abnor mal. Lab Interpretation (test Abnormal code = 50104-5) [facility] [place] with platelet count + automated [id number] 04:58:00 Test Item Value Reference Range Interpretation Comments WBC (test code = 6690-2) 8.8 See_Comment [A utomated message] The system [employer] generated this result transmitted ref erence range: 3.5 - 10 .5 K/L. The refe rence range was not u sed to interpret this result as normal/abnor mal. RBC (test code = 789-8) 2.56 See_Comment L [Au tomated message] The system [employer] generated this result transmitted ref erence range: 4.63 - 6 .08 M/L. The refe rence range was not u sed to interpret this result as normal/abnor mal. MCHC (test code = 786-4) 31.8 See_Comment L [A utomated message] The system [employer] generated this result transmitted ref erence range: [...] See_Comment [Aut omated message] 777-3) The system [employer] generated this result transmitted ref erence range: 150 - 45 0 K/CU MM. The referen ce range was not u sed to interpret this result as normal/abnor mal. MPV (test code = 10.2 fL 9.4-12.4 99134-8) nRBC (test code = 413) 0 See_Comment [Aut omated message] The system [employer] generated this result transmitted ref erence range: [...] H [Aut omated message] 670) The system [employer] generated this result transmitted ref erence range: 1.78 - 5 .38 K/L. The refe rence range was not u sed to interpret this result as normal/abnor mal. # Lymphs (test code = 0.86 See_Comment L [Auto mated message] 414) The system [employer] generated this result transmitted ref erence range: 1.32 - 3 .57 K/L. The refe rence range was not u sed to interpret this result as normal/abnor mal. # Monos (test code = 0.72 See_Comment [Autom ated message] 415) The system [employer] generated this result transmitted ref erence range: 0.30 - 0 .82 K/L. The refe rence range was not u sed to interpret this result as normal/abnor mal. # Eos (test code = 416) 0.12 See_Comment [Au tomated message] The system [employer] generated this result transmitted ref erence range: 0.04 - 0 .54 K/L. The refe rence range was not u sed to interpret this result as normal/abnor mal. # Baso (test code = 417) 0.02 See_Comment [A utomated message] The system [employer] generated this result transmitted ref erence range: 0.01 - 0 .08 K/L. The refe rence range was not u sed to interpret this result as normal/abnor mal. Immature 1 % 0-1 Granulocytes-Relative (test code = 2801) Lab Interpretation (test Abnormal code = 26801-9) [facility] (Hemogram only)2020-10-03 04:58:00 Test Item Value Reference Range Interpretation Comments WBC (test code = 6690-2) 8.8 See_Comment [A utomated message] The system [employer] generated this result transmitted ref erence range: 3.5 - 10 .5 K/L. The refe rence range was not u sed to interpret this result as normal/abnor mal. RBC (test code = 789-8) 2.56 See_Comment L [Au tomated message] The system [employer] generated this result transmitted ref erence range: 4.63 - 6 .08 M/L. The refe rence range was not u sed to interpret this result as normal/abnor mal. MCHC (test code = 786-4) 31.8 See_Comment L [A utomated message] The system [employer] generated this result transmitted ref erence range: [...] See_Comment [Aut omated message] 777-3) The system [employer] generated this result transmitted ref erence range: 150 - 45 0 K/CU MM. The referen ce range was not u sed to interpret this result as normal/abnor mal. MPV (test code = 10.2 fL 9.4-12.4 49136-7) nRBC (test code = 413) 0 See_Comment [Aut omated message] The system [employer] generated this result transmitted ref erence range: 0 - 0 /1 00 WBC. The refere nce range was not u sed to interpret this result as normal/abnor mal. Lab Interpretation (test Abnormal code = 12371-5) [facility] [place] with platelet count + automated [id number] 04:58:00 Test Item Value Reference Range Interpretation Comments WBC (test code = 6690-2) 8.8 See_Comment [A utomated message] The system [employer] generated this result transmitted ref erence range: 3.5 - 10 .5 K/L. The refe rence range was not u sed to interpret this result as normal/abnor mal. RBC (test code = 789-8) 2.56 See_Comment L [Au tomated message] The system [employer] generated this result transmitted ref erence range: 4.63 - 6 .08 M/L. The refe rence range was not u sed to interpret this result as normal/abnor mal. MCHC (test code = 786-4) 31.8 See_Comment L [A utomated message] The system [employer] generated this result transmitted ref erence range: [...] See_Comment [Aut omated message] 777-3) The system [employer] generated this result transmitted ref erence range: 150 - 45 0 K/CU MM. The referen ce range was not u sed to interpret this result as normal/abnor mal. MPV (test code = 10.2 fL 9.4-12.4 03888-0) nRBC (test code = 413) 0 See_Comment [Aut omated message] The system [employer] generated this result transmitted ref erence range: [...] H [Aut omated message] 670) The system [employer] generated this result transmitted ref erence range: 1.78 - 5 .38 K/L. The refe rence range was not u sed to interpret this result as normal/abnor mal. # Lymphs (test code = 0.86 See_Comment L [Auto mated message] 414) The system [employer] generated this result transmitted ref erence range: 1.32 - 3 .57 K/L. The refe rence range was not u sed to interpret this result as normal/abnor mal. # Monos (test code = 0.72 See_Comment [Autom ated message] 415) The system [employer] generated this result transmitted ref erence range: 0.30 - 0 .82 K/L. The refe rence range was not u sed to interpret this result as normal/abnor mal. # Eos (test code = 416) 0.12 See_Comment [Au tomated message] The system [employer] generated this result transmitted ref erence range: 0.04 - 0 .54 K/L. The refe rence range was not u sed to interpret this result as normal/abnor mal. # Baso (test code = 417) 0.02 See_Comment [A utomated message] The system [employer] generated this result transmitted ref erence range: 0.01 - 0 .08 K/L. The refe rence range was not u sed to interpret this result as normal/abnor mal. Immature 1 % 0-1 Granulocytes-Relative (test code = 2801) Lab Interpretation (test Abnormal code = 11763-8) [facility] (Hemogram only)2020-10-03 04:58:00 Test Item Value Reference Range Interpretation Comments WBC (test code = 6690-2) 8.8 See_Comment [A utomated message] The system [employer] generated this result transmitted ref erence range: 3.5 - 10 .5 K/L. The refe rence range was not u sed to interpret this result as normal/abnor mal. RBC (test code = 789-8) 2.56 See_Comment L [Au tomated message] The system [employer] generated this result transmitted ref erence range: 4.63 - 6 .08 M/L. The refe rence range was not u sed to interpret this result as normal/abnor mal. MCHC (test code = 786-4) 31.8 See_Comment L [A utomated message] The system [employer] generated this result transmitted ref erence range: [...] See_Comment [Aut omated message] 777-3) The system [employer] generated this result transmitted ref erence range: 150 - 45 0 K/CU MM. The referen ce range was not u sed to interpret this result as normal/abnor mal. MPV (test code = 10.2 fL 9.4-12.4 06609-1) nRBC (test code = 413) 0 See_Comment [Aut omated message] The system [employer] generated this result transmitted ref erence range: 0 - 0 /1 00 WBC. The refere nce range was not u sed to interpret this result as normal/abnor mal. Lab Interpretation (test Abnormal code = 14568-5) [facility] with platelet count + automated [id number] 04:58:00 Test Item Value Reference Range Interpretation Comments WBC (test code = 6690-2) 8.8 See_Comment [A utomated message] The system [employer] generated this result transmitted ref erence range: 3.5 - 10 .5 K/L. The refe rence range was not u sed to interpret this result as normal/abnor mal. RBC (test code = 789-8) 2.56 See_Comment L [Au tomated message] The system [employer] generated this result transmitted ref erence range: 4.63 - 6 .08 M/L. The refe rence range was not u sed to interpret this result as normal/abnor mal. MCHC (test code = 786-4) 31.8 See_Comment L [A utomated message] The system [employer] generated this result transmitted ref erence range: [...] See_Comment [Aut omated message] 777-3) The system [employer] generated this result transmitted ref erence range: 150 - 45 0 K/CU MM. The referen ce range was not u sed to interpret this result as normal/abnor mal. MPV (test code = 10.2 fL 9.4-12.4 16781-3) nRBC (test code = 413) 0 See_Comment [Aut omated message] The system [employer] generated this result transmitted ref erence range: [...] H [Aut omated message] 670) The system [employer] generated this result transmitted ref erence range: 1.78 - 5 .38 K/L. The refe rence range was not u sed to interpret this result as normal/abnor mal. # Lymphs (test code = 0.86 See_Comment L [Auto mated message] 414) The system [employer] generated this result transmitted ref erence range: 1.32 - 3 .57 K/L. The refe rence range was not u sed to interpret this result as normal/abnor mal. # Monos (test code = 0.72 See_Comment [Autom ated message] 415) The system [employer] generated this result transmitted ref erence range: 0.30 - 0 .82 K/L. The refe rence range was not u sed to interpret this result as normal/abnor mal. # Eos (test code = 416) 0.12 See_Comment [Au tomated message] The system [employer] generated this result transmitted ref erence range: 0.04 - 0 .54 K/L. The refe rence range was not u sed to interpret this result as normal/abnor mal. # Baso (test code = 417) 0.02 See_Comment [A utomated message] The system [employer] generated this result transmitted ref erence range: 0.01 - 0 .08 K/L. The refe rence range was not u sed to interpret this result as normal/abnor mal. Immature 1 % 0-1 Granulocytes-Relative (test code = 2801) Lab Interpretation (test Abnormal code = 83585-1) [facility] (Hemogram only)2020-10-03 04:58:00 Test Item Value Reference Range Interpretation Comments WBC (test code = 6690-2) 8.8 See_Comment [A utomated message] The system [employer] generated this result transmitted ref erence range: 3.5 - 10 .5 K/L. The refe rence range was not u sed to interpret this result as normal/abnor mal. RBC (test code = 789-8) 2.56 See_Comment L [Au tomated message] The system In[employer] generated this result transmitted ref erence range: 4.63 - 6 .08 M/L. The refe rence range was not u sed to interpret this result as normal/abnor mal. MCHC (test code = 786-4) 31.8 See_Comment L [A utomated message] The system [employer] generated this result transmitted ref erence range: [...] See_Comment [Aut omated message] 777-3) The system [employer] generated this result transmitted ref erence range: 150 - 45 0 K/CU MM. The referen ce range was not u sed to interpret this result as normal/abnor mal. MPV (test code = 10.2 fL 9.4-12.4 49175-7) nRBC (test code = 413) 0 See_Comment [Aut omated message] The system [employer] generated this result transmitted ref erence range: 0 - 0 /1 00 WBC. The refere nce range was not u sed to interpret this result as normal/abnor mal. Lab Interpretation (test Abnormal code = 08138-6) [facility] with platelet count + automated [id number] 04:58:00 Test Item Value Reference Range Interpretation Comments WBC (test code = 6690-2) 8.8 See_Comment [A utomated message] The system [employer] generated this result transmitted ref erence range: 3.5 - 10 .5 K/L. The refe rence range was not u sed to interpret this result as normal/abnor mal. RBC (test code = 789-8) 2.56 See_Comment L [Au tomated message] The system [employer] generated this result transmitted ref erence range: 4.63 - 6 .08 M/L. The refe rence range was not u sed to interpret this result as normal/abnor mal. MCHC (test code = 786-4) 31.8 See_Comment L [A utomated message] The system [employer] generated this result transmitted ref erence range: [...] See_Comment [Aut omated message] 777-3) The system [employer] generated this result transmitted ref erence range: 150 - 45 0 K/CU MM. The referen ce range was not u sed to interpret this result as normal/abnor mal. MPV (test code = 10.2 fL 9.4-12.4 42585-7) nRBC (test code = 413) 0 See_Comment [Aut omated message] The system [employer] generated this result transmitted ref erence range: [...] H [Aut omated message] 670) The system [employer] generated this result transmitted ref erence range: 1.78 - 5 .38 K/L. The refe rence range was not u sed to interpret this result as normal/abnor mal. # Lymphs (test code = 0.86 See_Comment L [Auto mated message] 414) The system [employer] generated this result transmitted ref erence range: 1.32 - 3 .57 K/L. The refe rence range was not u sed to interpret this result as normal/abnor mal. # Monos (test code = 0.72 See_Comment [Autom ated message] 415) The system [employer] generated this result transmitted ref erence range: 0.30 - 0 .82 K/L. The refe rence range was not u sed to interpret this result as normal/abnor mal. # Eos (test code = 416) 0.12 See_Comment [Au tomated message] The system [employer] generated this result transmitted ref erence range: 0.04 - 0 .54 K/L. The refe rence range was not u sed to interpret this result as normal/abnor mal. # Baso (test code = 417) 0.02 See_Comment [A utomated message] The system [employer] generated this result transmitted ref erence range: 0.01 - 0 .08 K/L. The refe rence range was not u sed to interpret this result as normal/abnor mal. Immature 1 % 0-1 Granulocytes-Relative (test code = 2801) Lab Interpretation (test Abnormal code = 04016-0) [facility]:00 Test Item Value Reference Range Interpretation Comments WBC (test code = 6690-2) 8.8 See_Comment [A utomated message] The system Inbil[employer] generated this result transmitted ref erence range: 3.5 - 10 .5 K/L. The refe rence range was not u sed to interpret this result as normal/abnor mal. RBC (test code = 789-8) 2.56 See_Comment L [Au tomated message] The system In[employer] generated this result transmitted ref erence range: 4.63 - 6 .08 M/L. The refe rence range was not u sed to interpret this result as normal/abnor mal. MCHC (test code = 786-4) 31.8 See_Comment L [A utomated message] The system [employer] generated this result transmitted ref erence range: 32.3 - 3 6.5 GM/DL. The refe rence range was not u sed to interpret this result as normal/abnor mal. Hematocrit (test code = 22.3 % 40.1-51.0 L 4544-3) MCV (test code = 787-2) 87.1 fL 79.0-92.2 MCH (test code = 785-6) 27.7 pg 25.7-32.2 RDW (test code = 788-0) 12.7 % 11.6-14.4 Platelets (test code = 172 See_Comment [Aut omated message] 777-3) The system [employer] generated this result transmitted ref erence range: 150 - 45 0 K/CU MM. The referen ce range was not u sed to interpret this result as normal/abnor mal. MPV (test code = 10.2 fL 9.4-12.4 64171-7) nRBC (test code = 413) 0 See_Comment [Aut omated message] The system [employer] generated this result transmitted ref erence range: 0 - 0 /1 00 WBC. The refere nce range was not u sed to interpret this result as normal/abnor mal. Lab Interpretation (test Abnormal code = 39362-4) [facility] with platelet count + automated [id number] 04:58:00 Test Item Value Reference Range Interpretation Comments WBC (test code = 6690-2) 8.8 See_Comment [A utomated message] The system Inbil[employer] generated this result transmitted ref erence range: 3.5 - 10 .5 K/L. The refe rence range was not u sed to interpret this result as normal/abnor mal. RBC (test code = 789-8) 2.56 See_Comment L [Au tomated message] The system [employer] generated this result transmitted ref erence range: 4.63 - 6 .08 M/L. The refe rence range was not u sed to interpret this result as normal/abnor mal. MCHC (test code = 786-4) 31.8 See_Comment L [A utomated message] The system In[employer] generated this result transmitted ref erence range: 32.3 - 3 6.5 GM/DL. The refe rence range was not u sed to interpret this result as normal/abnor mal. Hematocrit (test code = 22.3 % 40.1-51.0 L 4544-3) MCV (test code = 787-2) 87.1 fL 79.0-92.2 MCH (test code = 785-6) 27.7 pg 25.7-32.2 RDW (test code = 788-0) 12.7 % 11.6-14.4 Platelets (test code = 172 See_Comment [Aut omated message] 777-3) The system [employer] generated this result transmitted ref erence range: 150 - 45 0 K/CU MM. The referen ce range was not u sed to interpret this result as normal/abnor mal. MPV (test code = 10.2 fL 9.4-12.4 23534-0) nRBC (test code = 413) 0 See_Comment [Aut omated message] The system [employer] generated this result transmitted ref erence range: [...] H [Aut omated message] 670) The system [employer] generated this result transmitted ref erence range: 1.78 - 5 .38 K/L. The refe rence range was not u sed to interpret this result as normal/abnor mal. # Lymphs (test code = 0.86 See_Comment L [Auto mated message] 414) The system [employer] generated this result transmitted ref erence range: 1.32 - 3 .57 K/L. The refe rence range was not u sed to interpret this result as normal/abnor mal. # Monos (test code = 0.72 See_Comment [Autom ated message] 415) The system [employer] generated this result transmitted ref erence range: 0.30 - 0 .82 K/L. The refe rence range was not u sed to interpret this result as normal/abnor mal. # Eos (test code = 416) 0.12 See_Comment [Au tomated message] The system In[employer] generated this result transmitted ref erence range: 0.04 - 0 .54 K/L. The refe rence range was not u sed to interpret this result as normal/abnor mal. # Baso (test code = 417) 0.02 See_Comment [A utomated message] The system [employer] generated this result transmitted ref erence range: 0.01 - 0 .08 K/L. The refe rence range was not u sed to interpret this result as normal/abnor mal. Immature 1 % 0-1 Granulocytes-Relative (test code = 2801) Lab Interpretation (test Abnormal code = 05819-3) [facility] W/PLT COUNT & AUTO [id number] 04:58:00 Test Item Value Reference Range Interpretation [...] 0-0 (BEAKER) (test code = 413) POCT-GLUCOSE [id number] 21:32:00 Test Item Value Reference Range Interpretation Comments POC-GLUCOSE METER 128 mg/dL 70-110 H : TESTED A T [facility] [address] (BEMEREDITH) (test code = [place], 1538) [address]: Top Stitcher/Techni min ID = [id number] for Lien Mans[place] Vancomycin level, [id number] 18:09:00 Test Item Value Reference Range Interpretation Comments Vancomycin Tr (test code 6.3 ug/mL 10-20 L = 4092-3) ELIANA (test code = ELIANA) Top Stitcher ID - DBIf vancomycin trough level > 20 mcg/mL, hold next vancomycin dose, and contact MD and pharmacist. Lab Interpretation (test Abnormal code = 76268-2) [facility] [id number] 18:09:00 Test Item Value Reference Range Interpretation Comments Vancomycin Tr (test code 6.3 ug/mL 10-20 L = 4092-3) ELIANA (test code = ELIANA) Top Stitcher ID - DBIf vancomycin trough level > 20 mcg/mL, hold next vancomycin dose, and contact MD and pharmacist. Lab Interpretation (test Abnormal code = 49575-3) [facility] [id number] 18:09:00 Test Item Value Reference Range Interpretation Comments Vancomycin Tr (test code 6.3 ug/mL 10-20 L = 4092-3) ELIANA (test code = ELIANA) Top Stitcher ID - DBIf vancomycin trough level > 20 mcg/mL, hold next vancomycin dose, and contact MD and pharmacist. Lab Interpretation (test Abnormal code = 21498-4) [facility] [id number] 18:09:00 Test Item Value Reference Range Interpretation Comments Vancomycin Tr (test code 6.3 ug/mL 10-20 L = 4092-3) ELIANA (test code = ELIANA) Top Stitcher ID - DBIf vancomycin trough level > 20 mcg/mL, hold next vancomycin dose, and contact MD and pharmacist. Lab Interpretation (test Abnormal code = 19302-4) [facility] [id number] 18:09:00 Test Item Value Reference Range Interpretation Comments Vancomycin Tr (test code 6.3 ug/mL 10-20 L = 4092-3) ELIANA (test code = ELIANA) Top Stitcher ID - DBIf vancomycin trough level > 20 mcg/mL, hold next vancomycin dose, and contact MD and pharmacist. Lab Interpretation (test Abnormal code = 28602-3) [facility], [id number] 18:09:00 Test Item Value Reference Range Interpretation Comments Vancomycin Tr (test code 6.3 ug/mL 10-20 L = 4092-3) ELIANA (test code = ELIANA) Top Stitcher ID - DBIf vancomycin trough level > 20 mcg/mL, hold next vancomycin dose, and contact MD and pharmacist. Lab Interpretation (test Abnormal code = 20619-6) [facility] [id number] 18:09:00 Test Item Value Reference Range Interpretation Comments Vancomycin Tr (test code 6.3 ug/mL 10.0-20.0 L = 4092-3) ELIANA (test code = ELIANA) Top Stitcher ID - DBIf vancomycin trough level > 20 mcg/mL, hold next vancomycin dose, and contact MD and pharmacist. Lab Interpretation (test Abnormal code = 50444-4) [facility] [id number] 18:09:00 Test Item Value Reference Range Interpretation Comments VANCOMYCIN TROUGH (BEAKER) (test 6.3 ug/mL 10.0-20.0 L code = 522) Top Stitcher ID - DBIf vancomycin trough level > [...] PERCENT (BEAKER) (test code = 2801) POCT-GLUCOSE [id number] 17:36:00 Test Item Value Reference Range Interpretation Comments POC-GLUCOSE METER 124 mg/dL 70-110 H : TESTED A T [facility] [address] (BEAKER) (test code = [place], 1538) [address]: Top Stitcher/Techni min ID = [id number] for Jaswinder [facility] Tissue [id number] 14:24:00 Test Item Value Reference Range Interpretation Comments Case Report (test code Surgical Pathology = 104) Report Case: [id number] Authorizing Provider: Sarkis Laboy, Collected: 10/01/2020 09:43 AM Ordering Location: [address] Received: 10/01/2020 01:48 PM Pathologist: Pa Peters MD Specimens: A) - Biopsy, Gastric, random biopsy B) - Gastric, gastric erythema biopsy DIAGNOSIS (test code = [id number] 3220) FuZzEwMzNcZnRuYmpcdWMx IHtccnRmMVxlcGljOTIwMl fxywDtWPHrbSDzA1Lumahu TJzaUA7hGH9ibVneeUCsbU IhNURpEgZzm4qzq320qYJk f6dlKTZDjquotAy5yHhiL0 4mi2S0QwncW19gxAKkPPdp bGFpblxmczIwIEEuIFNUT0 3ZB9noCZWJYnSHWKUWYyWA Z4YIFRdOBC4FA43BUKgbVh vXZBCRTEZ8FYHemck4OTLj UFZNVoGGSLifHMJXF3GRCL dJVEggTUlMRCBDSFJPTklD KHyHWBTUBIFCTBvFB5EJSU SCKzNHKcSqRy5QLRnuUN0Q PPHIOS0BFTIHAENOTMnRS0 jCNVEsxpm4BGOlTSGQAGxF ZCgPNS0EH87YAKLCHUAJUX 8ADFJlH0zDS77NFbVABsDZ VElWRSBHQVNUUklUSVMgV0 oJQKABX0IIPOZFP4MNYeyS ISukEMKkdIZrPH6oC7FDPR mBHcSUAVKIMfasX9TBID1u AkPHYNAGSvCqZj6BJIviXY ZPVX9NWLSMVEpIIH0QI7LZ DVZWV9ewVWYjdHGtEK9iYn IDKJVRJyQnJb7GSNZYB0SY AVXPZKVMMoCHFZAHUA1THT LkrKBzGKFgvdZHSuZDPC5Y QUNILCBFUllUSEVNQSwgRU 6VR7QWG9JELtAQBQWOM6JZ UTDTZ7HQZZAPVnkzRSRbpA TnEO4wD5kXOvFYEaLVCCDF L2LcG6iRRFNYHFbBSZWKSq 2XDBXbUR6YU9UAZhRqK5BN VFJJVElTIEFORCBWRVJZIE YAN7BYIUHGWGaAEIUKRFDt ciAgICAgICAgICAgICAgLS CUUO9JBgKnIKANMCCLRRDD S72DYFWELE3EEOGZSOMRPW JUTFkgREVOVURFRCBXUElU NOTDSKEKYSVbgiu4MEByAJ BXQVJUSElOIFNUQVJSWSBT VEFJTiBORUdBVElWRSBGT1 JzWF7nSAmMX7MNTAyBA8Ss C5OATM8GG62FUBMcwxg0QZ GnCSLSKOoMRVfLKDLDV1Ss KR2FKZYEJA8QNYJPNXPYGQ kQN3hMYZUSOROOHIGDMKFo R8UxC9ZBC4dVB12BXGRrxo 13LYS9RvBna4M5XIK1XWZt UYIwl4suPKWrsZBvTvKzNn NcZnRuYmpcdWMxXGRlZmYw k9amb312nSXuf5tvEVYtHu C8sKAhVABxgJPyU065PHSu YPimv2epb7ExGURieWAzs0 P5QKPVkuxslUk7tTapI62o f0P3PjysQ8llZOJhWAPmF5 WiMW7jJAYdFjh9SRP8MHQ1 PGOkSFFdW1CuLB7qLSTrhQ SeFWb4i1gnzZqiWSAvSEY8 e7bmBXuevnWoIA9sas8wpY j0a4jrdyRyWRCzUKYbeSGS BMAkA6WnmKmsKn0alAe3dI xwVlliOTW0Zld4VM0cys64 ijf8zDvrFIRhxljcQlM2IR ddJXIaszdnVPl2YEwvBTEm fIG5KFAohIEwK7GmGAKvZY 9tyks3MCI8GQguSMPaKzR9 NDBcaGVhZGVyeTcyMFxmb2 71YSL4YcMwVM3kV8Vts7U8 zM7teCBeTPXvvBRfUrTqQS Rnft6dhQWvHBeea8KeKNI6 jsT3oWJfyMPrYBJhEmP6XQ ybYL2evn80PFPmWPB7hq1d bGNccGdicmRyaGVhZFxwZ2 ApXPOlw754WGBbW3KgGSZz w9T7gsYqWgJvWNOvqZG3ql W2JVDsOK5ckfhlc2duENle QAguCETcxxF5miC4EGZgiR HvE2CniR4kMKWxDJ4huvkp s2czATA3ONzjLXYyLIJ8Wr JhHXVoi6Zuirx5GmMch4Rm hMAjGGyfA17qz873QFCdgy RtO6rggRUsgdraiJFnblzj QAaqclM4NYMjVXiwnfjrDD OmNFtmW9duLcHcMVZtcQqz ITouf5BvAYTvWATaXxJyoI YgEJMwYyj7ULMdaXFrUYIf RgEcR0ragmpkSgAKAABry0 afL4smuQJAbGCtL8McRTga ymRlDNetYUzqBASfZWQ3OQ 22TBqqPZZacx96 CPT Code(s) (test code w9yaqTPxJYPlgVU2NlVrSX = 3359) Fkk7amz4BmqMZpgRNyXCoh tZZdgtYudh76zYO9hF53GE 6zMYWlTkH8KKVsfpJ1Slj4 YLIvUSLhmNWjI324d4sib8 cgrwDzbEC4uBklULKuSXWe YWluXGZzMjAgODgzMDUgWC XqLNQ7NNKyWbGVCxcmDKL7 CLINICAL HISTORY (test g8wvrFWyHSRkgVD9HjKrKN code = 3356) Blj6dyp5FzaAHqpZAeZOtp mFOfvbJtkp50kYT3pL99TA 2oNYNeNeB8JEFvvnD7Xfh1 CMCtUNKdhITfL759l0aen4 arjlRrbGI5rYwiAKGpPIPe TGscXYTuTsRzlXCnMF1hVR Bhcn0= SPECIMEN SOURCE (test o1tmvFOeEXLicCY4QnWoNK code = 3377) Hsm7kav9UleHBbuNXlFFbx qPSpluAugs71pWG2oC64OP 9tECQeIzU7AWUgtiM4Spv3 THUsKQOtuAEsZ846r5hof2 kqbcTwkRC9eFihJAJbQVIb AJtbRDPcEvGcEI8oFVsfa7 OirYZpeBpzRIMPVdNzO0So yDWdK0wzFXU8 GROSS DESCRIPTION (test v2lsmTOcUKPiwKTlZiAjLT code = 3366) VvRDZoj9wpRNOevXRyQrQt MzNcZnRuYmpcdWMxXGRlZm Pgw2nho063lKGwt5vtQODs HrK1iZDaNJDpbKSjV687z3 jyp0ynodAjlAY7JSUbRQT3 QKkmhpRznhB9WNucpBFnEy D5DEakjbKuKSprabAnryOo Ivf4NMQhV593YXU6aDzvz0 aqHUX9KMDoJBVzHiYmTl3d eZEfF760ISHtDMEAEOQreF e1PONrobCqmqCozOCHc211 E473t4jkWSHnunNzjCqVcv tbh2gqR811BTDgxRFcssMp GvJjPDPzcRWsuXD2SGIgAR 7kojzaFqTqXD4enpglEnXo JP1iabj3XuLuLJ7iicmfUw EdLDhnTTLkkvkzJYXlm4Om efotVT2jC5Txd1H3lZ9njH SqNVVodBDzSyKpLHQsoi7c wHDjAUspr0ZhRRQ3wcR6fZ VhgVQpIVYuSG06Atazs0Kh ZznxMJY2XSMddgByf9Nbo1 feHiUmmuThD1ddX0ZzOVGg LIFmEOFzTnKkwoAvy1Byg3 DnuFGjbVr8r5pgNGTwFKFt yXnmi2flNDM4CKDpL1J7cX Bsu5dyHDhcSSYrxTX3tesp JOoxCDRjcwZ8qcuwCQwtLL ZroDP3brkaZYxlLNAqDsN5 telhEIkmYRAxYNU4SSjoa4 21SZT4JSdpXetaEOuzORMa bmNvbnRccGduZGVjXHBsYW luXHBsYWluXGYwXGZzMjRc dCjkmGsirH9cZyQuLnIgCP boME7uMIGuR8lqhNQyCYBe KTBgI9oiWnJglH9mzUuhDD xmczIwIEEuICBSZWNlaXZl ZFDnzoHii2FeORmnayBfBH WskWYzIKIpVBMzWXRpWB18 N4CbdnGjUKplAGDpCBBpsS 8nXR18fJCauaFzzzAiZgnq v0JdzMMgNiifoMH7XcTews EnQMQ7DH6rcYfxljV9yAQw lCWaSiFlV86yseIgQB8nTA L9exdcUwX9aTX0cgUeIiRo Z32ekY3wR6KoZGFnm4BgHN seGZ3doX6vDVuvnZHjVVHx EKCehRu3LLCuPZUezwHad8 FhoQr1hSMyVUjySZYbuM1x qA1yWVFtHRUfjvfkDJPdNq 3jUASiF6GltnElBMnlHIXt ja7shXxcUYgbCiSnXIDqiU uyMUZrwZrojnAnswJrPS9y YNNbJ2Bae4Owx90whhXgAh MyCEEmKLRyA2EkqISgMuSx aXMgYSAwLjIgeCAwLjIgeC XlNpKlR73qdXRfSHZfjlke hYxuw5UvERPeUNllZS64CT doaWNoIGlzIGZpbHRlcmVk WTVbBUAfdEFweCL6GPHrsB 3quO56hvHjdsXWEN6vlUBk GXBlfiLTzLcuokXKoex9EO xsZXMsIFBBLCBIVCAoQVND UClccGFyfQ== MICROSCOPIC DESCRIPTION g6ebpDHbZSZilAP2CjBvHH (test code = 3371) Yxw6fst9CprWLgwLCbJKrn qOGsnoZoja90rXP6uI10WW 9nJZAfTvB7RFIuweP0Xoo5 AWKlAFCzqRCdH640d9hfo0 lwhuGbuKN5iGkqNUYdWVNd MMadHUFfGcEvHCQvBu2zhV VkLlxwYXJ9 SPECIAL STUDIES (test u4iiaYTfEFZbb6jyFEZfoN code = 3376) FuZzEwMzNcZnRuYmpcdWMx MVhhrdOxEPwqn1XoU8XnCi AwMFxhbnNpXGRlZmxhbmcx LFXqWIN9ywIbVXJnJYnfMK ZyHEwdVj6vfVBjvXyaInUm EATus0eqlgVBzinfbFu0i1 wbBHRjTrH9fEBpGCbwX0na qlEziGQpK8UweIRvwVs9a1 ttVvFwGtQ5iWBbAVpsT0bu lhOulDFiGUBkTPy0gG65HC MrnW8mzZEiUMencfMdEcN5 EJqnFUOwAzO7FKWhaMRoLE GwW1vwMJRhUDmlJMIzZJxl nMWvKYH7bQixm6S5nPWeyE RzjJvoYyQeTjKsBjIDf9Lj ZBw9sXwtJ5RfDOTiNdH0fM QgUGFyYWdyYXBoIEZvbnQ7 pZlzkkGld22mpGLgAZLtBS ZdKtFttIxtGIDqNSBQo2Se oKccQKU9nWd4pLvwBnecQN O1Tuu8TH6piq99ktp7eBsi PKQkzspuBxD6BSqvCXWpqm btIGq2PJcqWRWhvNH5SQJt fJIyR5CdGSRyMX5qkic5LR V5KJdsWSNhVaH6TBEqtTHo EHNcaWcjKBwbh840CHC2Ih XoSS2eU3Ego6J2bN8vmHGx ECRczSJvQsIcDHSipp1rzI VuZXazv2XmVLC8seV5bLPw rWShDNTaSK13Dgeog6RdKu rar8AoO49rtRA5PEimv1nj BI2aMnZ3pdDzGJqxa4ghoW 8kScB5EPkvWH0hNN9nMVEi lP3slttkTDJeJaZzdoppQD LfiCcitqHbEq7snIbmYOS5 PApkL5dodT7xNyZ0HOdxA1 cvcW5dZNx8QIdzwDB1PSGq sH5dOA9jqcvts2qmJEitFF apWIIgibV4oaX5UXSppFHk R6VoeN1vMBClAG2hjnatn7 gpUQN2WEqhAOYlVHZ2MsNx SBVvr3Rppfx3GoHxv0BhdR OmXBegR97jq271QMHmjoKk F9dupOHoqkwrbITzthwdCH edfaV1NZGhTPYcLXmgDXVy XGZzMjJcbGFuZzEwMzNcaG ljaFxmMVxkYmNoXGYxXGxv O0brUgRyK3GmKEQnQcGrCL iyGEltoDKsiEEjpRP9gR0u GM9hQPEtrCYcP7PtXMKxcd IntXImCKQ7zAImpQXhCW1x PNcxzPAtx2clk5NkX3zihG zvsDW4GR8wFRMtVGDvIQxa b9VntG4bWsyauSKtfrbiHR xmczIyXGxhbmcxMDMzXGhp P8xoAmGqKVDarJkePCnys0 NoXGYxXGNmMlxmczIyXGx0 cmNoXHBhclxwYXJccGxhaW 4sYcCkGdDuIobtPS6gRGDg W2mshPRrQXNwIACaU9znTw PopQ4wzRmaLJmsViAuWoEk ZlPOq244bd0oZTFeeOXvjz QFmLCpmP7dWJemDUefLNsr sXXvQYjtg2wnPYQhp2z0tD FyKOEtseXve8dyIXacouLb KDGlqVHruTWhRONuj11gVS gfaNcggMhnVMFly5FzdIdc n7GiDrTyESvby9XdX01zaF JvbCBzbGlkZXMgcnVuIGFs r88zf9fmCMCmKrG6cDKtaK A6nMEbsOKvs2LovXsiEYHj g0zuQUXcwj4akgpfcAPqg6 DypE9nctdvCSlshVVddhCk LGVdj4g6qTVrWKMpBYVoOH bivHb2JCEbu784kc0haoG6 zOOjZNJ9OIvoNJDoAXAsmk UgZXZhbHVhdGVkXHBsYWlu XGYxXGZzMjJcbGFuZzEwMz NcaGljaFxmMVxkYmNoXGYx NQjbL2jbHtDiN2UbSZTvOb UdtGUxU0nwvVWmZDDuHGkw XGYxXGZzMjJcbGFuZzEwMz NcaGljaFxmMVxkYmNoXGYx IVskI2ilLuInR1BlXJQtIr IgIFxwbGFpblxmMVxmczIy XWpwgaprOZPeBWziZ5vpGl UjMOAoaHwxKQawt6KkFRWn FUBfRdzkxmDcCLu2ugFaCD BhclxwbGFpblxmMVxmczIy PTwebfiuVZXeCFgzN2ujWg TqJXAtuEitMVuck0PqPBDq XGNmMlxmczIyIEltbXVub2 xfg3TyI6bwsDppwQC6YTDp H6qpqSAmrRG7GMA3gU2oLX iyhcKpTJLbf7BqFKVhXHIa UjU7zA6rFQD5VmSKxIzzBH BsYWluXGYxXGZzMjJcbGFu ZzEwMzNcaGljaFxmMVxkYm HvXAYiTXxaL3ydZcLmA3Dn EMXbVjVxhXdkQEgdVUl6Jl xwbGFpblxmMVxmczIyXGxh ripcPFQlBWfdQ7tfLhTlRZ RdcYoxRBfcx3DeBAGqELFz MlxmczIyIHMgTWVkaWNhbC XCHW75NHAwUEIasYfryK5q rXJQEYNptfR1u7I5EVdcFX YjHAb6TLacxjTuCCVekJ6j GTVrZH7jMYu8ieEgERUbb0 ZbZG9eAOQzyYKoGMQ5YFPo d6OoI0Nto8RsVJYrTWEauw 5knzYrSmDYaURlOKTulu06 AVCzFI8eO3nkZQGsDHXuuh OdjUZam0EsQYAsmDW9sPBc AL5UNmVGf95cXSRmMMZOvv CaYTDdyCiijMS3auY5pE3a LiBUaGUgRkRBIGhhcyBkZX Tsvc9hsbJdBHYeWMPsf6Wm vKTdzYXjohLzJ7Qra5SoHY Tjte32DGsjuENalh03PW0p J5Wja1EwyO9zCRhzYSZwz7 FlwNEkmWUmRZLfw6HxS4di xtmuOMekrGQlkN3pGEWfIR q1XIOln6TmMREad4TaYkBk tgRrFBNbBXErMMRykW46TD J2fDpctLbutzSfUT6hCVYw gtRrROUjXWZbsH3zLDsuoz SiAQXayvJ7p1M3DVkiOBQx jgGcKehePVH3jzJztlL4pH NgP3wdcgwmGXwhRXNfg0Kx qL9rpJQWkKCtv2EiyHXfbV PUbVKlUE2ubiWxVT8bGBV5 ODggKENMSUEtODgpIGFzIH H7GLctVycuMVS7hjOkRIPc u5EzJJqzN7nxY84ohXwgcD w6lDVqpRzzoXOwmFKoQXDn bhF6r3E6QVMki3RyxwrzVK BsYWluXGYyXGZzMjJcbGFu ZzEwMzNcaGljaFxmMlxkYm FgCLNmIPsrW7jtCfFuUgEl LbthUUU7gE== Gross assessment was [facility] performed at ([facility], = 2777) Department of Pathology, [address] [place] [address], Technical component was [facility] performed at ([facility], = 2778) Department of Pathology, [address] [place], [place] [id number], Professional component [facility] was performed at ([facility], code = 2779) Department of Pathology, [address] [place] [address], [facility] [id number] 14:24:00 Test Item Value Reference Range Interpretation Comments Case Report (test code Surgical Pathology = 104) Report Case: [id number] Authorizing Provider: Sarkis Laboy, Collected: 10/01/2020 09:43 AM Ordering Location: [address] Received: 10/01/2020 01:48 PM Pathologist: Pa Peters MD Specimens: A) - Biopsy, Gastric, random biopsy B) - Gastric, gastric erythema biopsy DIAGNOSIS (test code = [id number]) FuZzEwMzNcZnRuYmpcdWMx IHtccnRmMVxlcGljOTIwMl ulcmSkZRNsyADeQ5Gstopn YJoqNE7tKP1dnTohiZTedD XlXFArXsGhf8yzp283oQTt e4wxVFOForkolIe6sXntI0 6hu2F1FyqoU21jlPLwJMdx bGFpblxmczIwIEEuIFNUT0 6PH6uxJMWIBdNIJSIOLaAK R4GPPXcHGR8QP02ZPFitUj gLMCYLOSK7ZKRwcsc1WDZl OARYVoIOEUgaFPZKM4MTZW dJVEggTUlMRCBDSFJPTklD JAuBUQCOTGZZAEbII7MLZJ IEBbTIPlRxDx3LDGrzRU4N NHNLVH2BAZAKYTNZBGdDM3 oVLTMhpwe2DHQnIYNWLRsQ VGwGMO2VH05MGLTSICGJCB 5TWBXtP1dUI60QQcXZYnOI VElWRSBHQVNUUklUSVMgV0 lWYNXQP5AXYDPNZ6EZJpjJ EVgpVGDvvNNwML9gJ3KBJX yVYqPQFKZMZcutK0XXKF9s RuGPARWOOpZlJs1WCUxjIR YEUX1XAVHYCLdNQF7KX9IN MTFJK2dxOXVlhDEhYZ3tIs XCIBIPSbSlOh5NCXLLB7TN VPHREYDJPlCJTPKOAG6XLZ FvpEKxXTHaalAYBbGUEY8W QUNILCBFUllUSEVNQSwgRU 0BF2UHA3SLUwYYVYWJV0TU MMDHS7WAPVRTPzhgXYLnbP ZuPE6gI9vIMiROFuNYGFXW C7FeS7nGRREZHCaBBMGMYy 1DQWPtSZ8XW5CQTyMeK0BC VFJJVElTIEFORCBWRVJZIE SPQ2HZWJESOElTYGLTINSr ciAgICAgICAgICAgICAgLS HDUZ5LSpNfCMSSQLQSBROE I18ZTZJHSH4XSYWUCWIBTD JUTFkgREVOVURFRCBXUElU QFQSNRTNTOVhcfm5YCPxBR BXQVJUSElOIFNUQVJSWSBT VEFJTiBORUdBVElWRSBGT1 JwHB9mHIyFG4ANXBfOI5Fx I7OHTW8NC46XCFHeczs0TB YqDZKXRLdOEXaJYHLJK0Ra NF8BIVBRIL0QIXHJUBBTDR rLT0oBSQQGMLTEHVYBFVHa E5QeZ1KZW3uKU05PAYMavh 04SCY2DhDts7L8JNJ6DAIe IBMaa2ufPYJjlIEfUgGcPn NcZnRuYmpcdWMxXGRlZmYw b8jsf576eGQhq9wfLTHfTm Y2vFJwFMCuhLBuQ325IRTx KDqmr5pde2UlLNEpyPYdt3 H9BOQEbcvnwPh6yZqlX52p r5I8UpgdX7fxUFEgZHMgS2 YhED3cOLJjKrx7BKX1PGO7 OPTeTZVdM1NcMS3gGNIdzO QgXEq2g4lbnLzsKFIbQVN1 i0bjVCsstyOdOL3cwt3cbD g2c9pwunSyAXQtSNIctLSX YIHaX6PriMswQd7vmHe5nL tpAckrDPM5Byx3PM0hul34 sxi4nXpuEGLrkvjpCsJ1NG fyJWWjdhnmODm3HIogYJEp eIA0KCHcrTQkD9HcTZNbJU 7wqwv5EVW0ERdkSMCcHnT5 NDBcaGVhZGVyeTcyMFxmb2 63DDE8HoUoRU1hO7Evn3G0 rR1gpGLdZFAgjVEqCjVgGP Vdhp0wnRNfYDiej8UkHCZ2 ejZ4bHGegUQuAPGoAmH0KE bwJT1bmh38PAXdBPD6ae0m bGNccGdicmRyaGVhZFxwZ2 HwWDNmw312BTBuT4OfNTTt i3M6sxFmUuUoBSJpkUM3rn C7KRVeNY2phvunk3xrSGsa WXakRRDblgT4ybA4LLOwrN ZyM5QqxQ9iHIIhER5yajog m4joCGP4RXdpLMHgWLX4Pb IqRMEtg8Vmdpp6ZaCjg1Fg oURqPRhcN27pt053XCIxrv NdC6flaLDgtqfvcSPztqhp TGqwsbX1YMQuWIcnudsrZH KnWRhyE6awTqVlDOKjjQvu KQgsd6OzVZCoEDRuEwDzmF IcOYKvTxj4GZMszXYqZAFb XqHwC8dfauhwWtZMKREqi0 ktH6kwvNOXjPBlO7UzYGer bjTgPRcrKPwgNSVoDSU6HF 12ZIekXFLqcy82 CPT Code(s) (test code k3vipWEvSXOyyXE6FjHxCA = 3357) Ypu0oqj2MocCLrkWVlWKrg mLHlvdAhak64gYV1wR69LR 4cCVJvRcR2AOZhpyZ4Nnw0 ZPLhCZGyuICrK982d6fdw9 dnzlEnoWY8oCfeVBOmQCQx YWluXGZzMjAgODgzMDUgWC GtHJW5HXFfYjEPWlyxONB8 CLINICAL HISTORY (test v0atsDMmIQBcgCJ5HyJnAO code = 3356) Uee8yex4MycFNsgLTjYCgx lDUvswDjqw62eTQ8eM08AP 9uUAXrYjD6BURjszC9Llq1 NWJsHIXyoVExG863y9soz7 labqTjhIS2cQjkYLVfTPRm JAqvWCTyKmQplMMoHQ3wKT Bhcn0= SPECIMEN SOURCE (test q5envNUsUIImzDD9DmQzMN code = 3377) Acr8pjd7KerKLmwCXmPLvo yDIfqeHelv44aYI0aN29OR 4lHVAdHjO0STTnawC9Bty3 HZIcGSPhuDHgK187x6ewk4 ymvkCoqCD3wZjhISFaBSFc VRsaMXZcSeAdJN0xOKcxv6 LhjZBnqIcmULTPXbFfU9Ak bMUwY7koCOZ6 GROSS DESCRIPTION (test z4zdeXNkLICgwWArAePvUG code = 3366) PjJCAva6vwCAKofMXjNsEx MzNcZnRuYmpcdWMxXGRlZm Xbl9jel533kTJmz4qhUTLi LvM9pTWqUKGzsUDzM858e1 nze5yraxUzyWW4ACUoJVJ6 GYgolfFrfnT8BLjgrIIwIp O8ZVljxmDfTPwffwAlupJf Grj8GVTeM098LLG6zFtum3 ccDSR5RGIuAWWlBzWtLq8f lMNkV686PJGoZVYGVGUvqH w8BPOvysNdtzYziDRZd385 H649a6qbITLdibTnyGxPzm txo4rgH390KCQuqZJshdPy NxOuCGYobYDxmNI6DAWzLZ 9hysbtWjRhRE7zjbhpVpGy ZR8znlx1BqKdZE3arlpaQs PnZOgjJYJiingkOJQzq4Ku eqqzUY7aJ5Xvy3Z0nH2rzO DaAONmhVUaTgXpBZYgck4k mLClQOjuc9AcGXW1pxE4lI ZkvQBoHILtUP09Jhjxt0Br TlvhSRU5TYDcrrShp3Ecc7 fyCqGpxlAzT9rmQ0ApDAKi MAMsBGErOnZwsyXhb3Ivx2 EssRHquIt9n2bhJZKiLTTb wYzaz7obONZ5QQSaI0O9kN Pfu0lzRVpuJSWmjKI5vtuv TPpkHHUvzoY0cfqaFAxsZL VvsLI9ezplIPduIBYrVjU3 yamgCYooKSWgZON3IIpbj3 99CIW1WUwhEtsjTJhzHKHx bmNvbnRccGduZGVjXHBsYW luXHBsYWluXGYwXGZzMjRc jNqhaHfkaZ4kAtMcPzHjBM bbUV3dCURyP6vcqZJbJTCs JZAhI0npNbXhuW9saErlRK xmczIwIEEuICBSZWNlaXZl GTZszcAur9HrEEkgueLcCV AfnVXcIIEjHSYgQMQvZO86 W1WvffJgQLnvIMAmLHTwqS 9oZD18aOSryfHuuiWzIatd e8TlzRXuCopvzSO6TmTdcm OvJQU7WL3krVhdfeK9tNCm rFHmEhTgI44jzbZiHG7jDT O6kvwbFiE6nLI7djVtPlTi D96pqT2bK8SfBNFot8FsEA ldCX3eqZ9pQNwdnMOpYCIy HWFwnEs2XHXxBDAbzgOlo5 AatSi7hEJrSHndEGZvtV7f yE8jLACeUYSldjphIQXqZx 0rRVJxC2OtxpPsYWsnMMZm th8bzCvcSBpwUdXnLGKhwY huGJMimNzlelRwawBvOT4j WCEqH9Wxz4Bje99enfMfUp DbCXDtONMvW2NcjLFiZlJh aXMgYSAwLjIgeCAwLjIgeC BoEkGrI19okVEaCWRcevcr uQeuo1RmODOuEHdvIM01CD doaWNoIGlzIGZpbHRlcmVk ADOiUQSgsQQohQJ2XVBsqI 2puL27vtRicnBFIG7oyRBs ITUpakUMfSctwmROjdg7BM xsZXMsIFBBLCBIVCAoQVND UClccGFyfQ== MICROSCOPIC DESCRIPTION y3ipkKXiAZTccAD4PlSiZH (test code = 3371) Vam6aci5StzYVfuVAtVPoo qGYezwEhkw93aUW1aX46ED 9bXQVySbH1CUGgxxF9Hpa4 MNQlVNJxiUOkN177d6tlw9 ziifPlsBR8yBwzEBYbORYc VAxeIWNpLjBhCTXnZq6rqC VkLlxwYXJ9 SPECIAL STUDIES (test g6tnpHRdSABpa2lqNILyyI code = 3376) FuZzEwMzNcZnRuYmpcdWMx LNpqabHfYOqrz7KzE4UyXl AwMFxhbnNpXGRlZmxhbmcx NELoBWW0ieAaWCKwQSteFO HbEBokLv5iuLKzhOetCkFo CSTmk1xctlJYmlwvoOl1q1 qqHDGtUgY7zMHlDIdcG9qo cjMpoDTdX7GsgMPdrIl4c6 ngSkCjHrD6qTJzNFllS4ga wePfnBRwPTZcMWm3uS86TE CkkQ9vbYMkECkmilVcSaZ1 DTdbRHNjPeX9GPUzpFPgFP BoO8qbLDArPHaoGEEqYNsn uRClZPT9hUecm8V8uJYmsE FnzSaxSyQdPkXsSuLEf3Su VZm1qRgvG9HcQGRzNzY9pI QgUGFyYWdyYXBoIEZvbnQ7 kMieexJpp33lmSLcNSClKS AgIfDpdZuzWGZqEKNWd3Vp kMfvPUO4iUl3kGmxKzrsST V8Nba5CF6lmx99wpn8nPvn TGGofoywAhT7SRiwMQTaoq mxHUk1CDvuBVLywTZ3LYGh wAIhM6OrESHiAV0kiag9PF T7KDkxZYPhGgG1HHCteYVv TQKeuSggENsnj188NNZ8Ah OpCQ1lX6Juj0Y3eM1fzTNt MGPdjCOtNyGuQUKelv0doW EhKAbnu3TvHND2erR0yCBa lESwXSPzIZ89Nqweq5MwPw wjs9JrI49ouBE9JVhpt3zi IO0oBjH5ldCtFKyyk4nejY 1pGyX2ZKetSF6uLJ3uKYMo lZ2fkkolKFSaWjCfktsuUR NosWitzeMfHi6cwWkjNKT5 RRicW7nphD8fKnD0BNdqG1 zctB3qYMr6JKjtuEW1KFTh iU0nWN9tfjwky2ezZSzmZF etFGJgylL8btD2GUCsxGLi Z9OgpK1lPFUvHH6ailrvd0 qmOPD3MPzaIQQfSXW8DvPt SALoi4Ykhxs1DpEuj5KwiD IgUJusS33ou294IHQbxaZv U6apbAMzcasmjMYjutxcZU xjcyT9KKGzVLWhBFfyQRWv XGZzMjJcbGFuZzEwMzNcaG ljaFxmMVxkYmNoXGYxXGxv Q3kqWbTxR7DjCZDwRbWjND keBJfkqWVzmINwhKS7iN3n EI8jWETnlXBsA7SxNCFzll UfgQWySAJ0xPCfoFEmWC8k YMcdeIGpj5zum8DfZ8bmuH yfvDE1TR9eUUGrLOEpBYgx d1EdcN3lDfwnwTCkjwauCF xmczIyXGxhbmcxMDMzXGhp N9xiVePsGXTiiYiiEIsxz6 NoXGYxXGNmMlxmczIyXGx0 cmNoXHBhclxwYXJccGxhaW 7bPdLbCzYaFdddJR7jBOXm X8rnyYVnSWPoLSGpM0ptRi XlkF5coUqjEYpfKcVxHcZr StSFu728ym8yDEKcqSTnkg YUqZBbjH2cWXokUWfoRPid iNMuKXwzy9scBEXip0j5wL ScVRIidvCwr9vgWYhkczRo IIKtnFLdfYVgTAPdi82kYR qldJizjRmdVWLfh7LjhJtn p3DfVzNhPZhiv6GyY55xkP JvbCBzbGlkZXMgcnVuIGFs e21za4vmRLItCgF5xOObmU R1gQAsgTVlm8DopIzqIPQb k3hlZLSyav1umyaqsRFug0 WjhY4hjdvfPMzvnCAcmeRx RXWhr7d5cIAuZSPnWSQeDH jnvSk9CXVdu644ky7ncxK3 xOSkFYP7GWywGYXoXHWyfr UgZXZhbHVhdGVkXHBsYWlu XGYxXGZzMjJcbGFuZzEwMz NcaGljaFxmMVxkYmNoXGYx RJvmS3dlAlLoZ4RdMHGpJg BzwPZcY9mucBOrYHNpWXri XGYxXGZzMjJcbGFuZzEwMz NcaGljaFxmMVxkYmNoXGYx BKsbQ5jpEiLuU8RvYCVsCw IgIFxwbGFpblxmMVxmczIy GKhozzjlDEEzZZygT7xvYr YmTIKavJopSSofo1OvIPLp SMGvSwhdliYoKGg2qjRbYF BhclxwbGFpblxmMVxmczIy URgiyezeCUUnOEhcT1vdHf WiFDNkxPupQEnbf6MoNJGy XGNmMlxmczIyIEltbXVub2 dtu5PqB7gptKigaKE4ZDNa W3hfzPBqnWE6TJR8dE2cVW ucqfOuEEIgw6XzYZZbOFDt UsA3aY2hTWA8QkEYwUkmNF BsYWluXGYxXGZzMjJcbGFu ZzEwMzNcaGljaFxmMVxkYm HeXNQmXNmfL0saFrImR3An SHMxCbCyzMsyQGxlUZq0Ji xwbGFpblxmMVxmczIyXGxh idhrSMPqDOhtZ9chVnCwUB UmkSofENcuj4KkMRMqKYXf MlxmczIyIHMgTWVkaWNhbC MAYP27XGFnUDUnxGiqeP9d pEMFNHToepG2w1H4RXwwGF RsJJh4BGfsigZmEORcpK7e ZDEyDG9uBQk9vmPxQYHvx5 JiUN6sZWScyYAxKBK5AZZv d3CmO6Afz1RmPXJbLSToqz 9hyvWkBnCOeWIsKPLblw87 LPHvRY5lG3ryNHMwNORorw VmuEPbl3QmLJTlrOW9qKRp OG5WTxAQg97qDPTnQODMzq XsYAOrpIwreLS9ieP7oH3l LiBUaGUgRkRBIGhhcyBkZX Zisy9rhgIkMANrMVYva4Kx dGBtwDOpwgMdN9Jfs7JxRT Pxgv81MKplkWCxqk36AI0z J7Oak3MekK6yKCqsPCYmt2 LtmZNsyMTtATCye9IeD1do gbnrPBesfUObwJ0jCBAmMS a4ASAau3CxMCFhk5LjNqZf qoXqBRZaKYMoWVCjkH48JU O2nPxxwGlspmQeSW1kZMLt oqNrITVsJMVlnX7rYXjfos NoMRJrtxQ4s8T8MQxeQEWx moZvVuocEIV5ucLliuZ8kB EnO7wtyjkkZMbgNEDln4Ol pK2tsFBUuDGrg9YxqLJmcP XUzTJgXI3slkLqCV8fRQM1 ODggKENMSUEtODgpIGFzIH X8LAceRyukQFP4agFnZERz h2UoAHlhB2iaA90jbLugrZ z7uQSneRzvgOSobJSyRYVs ygI1g0X2VPIlo4SuzyjcIK BsYWluXGYyXGZzMjJcbGFu ZzEwMzNcaGljaFxmMlxkYm PcNNEsCWxpG7kvHeIxHnIi EjppLUH2hQ== Gross assessment was [facility] performed at ([facility], = 2777) Department of Pathology, [address] [place] [address], Technical component was [facility] performed at ([facility], = 2778) Department of Pathology, [address] [place], [place] [id number], Professional component [facility] was performed at ([facility], code = 2779) Department of Pathology, [address] [place], [place] [address], [facility] [id number] 14:24:00 Test Item Value Reference Range Interpretation Comments Case Report (test code Surgical Pathology = 104) Report Case: [id number] Authorizing Provider: Sarkis Laboy, Collected: 10/01/2020 09:43 AM Ordering Location: [place] [address] ccu Received: 10/01/2020 01:48 PM Pathologist: Pa Peters MD Specimens: A) - Biopsy, Gastric, random biopsy B) - Gastric, gastric erythema biopsy DIAGNOSIS (test code = [id number]) FuZzEwMzNcZnRuYmpcdWMx IHtccnRmMVxlcGljOTIwMl dxzwJpJWCioZYwR2Efatiz TZceQE2fHN9peIguyZNdwR YbBPVwOgBsi7ndy379zTZv c3ovAIVMonmyuYo9eFwnZ6 5kl5B4DfvpG77ccVObCUmc bGFpblxmczIwIEEuIFNUT0 1LS9amFEXZGxILWOKAUeVW X1RQBKaYXS3VE92CPOnqBa rDRADQJUD5DERzalu9LYEp SUXWXaLPCEgmZTWLC5QHAM dJVEggTUlMRCBDSFJPTklD SQwLYRDAWIMQWJtZY8ZHND IMInBWDcEdWg1SMLqzJK2X DJLOPZ4NWNYUQUESWMdWQ6 gMKCPkyxd7XVPzBDSZMVhJ JQnRYV5EZ68ZVPPSGELWIN 7EGMDzC5yOT90VGqKQVeBM VElWRSBHQVNUUklUSVMgV0 eAQZOFH2LIZJSMB8GFWtvX LBqpIOKqpRVvYL0cR9GXQP oZAsHARFYXAzqcO3HWJE8z XsQLRNCTZxDnSd8CKXkhRH YGGX2TMPJORFaXOO7DH9LC PGTDP7eoJHDmxJPaYF1cTh TTWWGXUtNfGn1FIZCHA3FT TKTAWOWOPbDRZZURXH2OOF TcqZDlCORhmtINIqNGXN2K QUNILCBFUllUSEVNQSwgRU 3JX0CRO3SJJgVZTQHXJ0CP PSREY0CUGMVEHgdfOOMnxP ReXC5jR5cGLiZSMmSOSFIX K4QxU0gHHYNNFYnMHPIZIe 2AZFAkNA3FD4BTWnXnC1CO VFJJVElTIEFORCBWRVJZIE MQY8NCYBZSJHuFEAXFWBHp ciAgICAgICAgICAgICAgLS VDPU3JXoPoIWXIYMIVVRID T32WJBTKCT9BKEAKQEWOGC JUTFkgREVOVURFRCBXUElU GPMDQVDTMAUwbfj1QBQvSY BXQVJUSElOIFNUQVJSWSBT VEFJTiBORUdBVElWRSBGT1 RbWI2vUHeOK6ALLSsEQ0Vk H7YPWF3NG36ACKQfjwg1ME EmUVPLVChXMCtWEKKJS2Ur AK2MSDHXCS2ZRKHHHCOXOJ wMY0xLRERSEVLBDKKAORBh Y1CdM2LXI8pRJ79KGKQxxm 30LQQ1YeVvx0I9RBL1TPHa XRDxy3xtRQTizNNiYpNaOa NcZnRuYmpcdWMxXGRlZmYw b0lax843aRQkw5inYPGxBi F7tYViOEPitHDnW053PUGr DExoe6mmm1StULXauTKeu9 E8HEORpmgfwXo9xPpnI40o c4W0KpkaM5heLLGfBOPvN6 JmPQ3lEXZrCrd3HPY0KVE1 FVNwYHKzZ5AbHK0rECOgfX RePZb2r3homKojAQRoBIQ7 y0ckPPjjzwEmRA5jno4wtL h4h0qgpkRdIERyIENpjGVG SSLnJ3KziMlvDo1xcIe6jM suIlltQOX5Wew0HK1wbs06 ezx5xNomJSTsbjlpWnT7FU lrRWFpccryIWi2TEsiRHJa sWW5NEDvxXCnX1NrBZYbUJ 9kfhq6UXC4ICetHQKsBsW9 NDBcaGVhZGVyeTcyMFxmb2 93GMH2KhGiCJ6kG6Ean4K2 eU2jjOCkWNVwtZGwGzUhQE Qfcu1lvZImDTiyw0CdVXN1 kkA7zLExfABpCQNwPxR2AT fjHS4lpx81AHWwURE4ys6d bGNccGdicmRyaGVhZFxwZ2 MvADTql782YQFcD0LdPICo z6D8zsYvGsJeTKXzbZQ7ik Q5LTPbZH4gubqml8hxTTbc RUkjGDMtmoT3mqN2PFPliZ VxW2KupW0rPYVcEF7dlchk q6seKPP3JFagOPRaOUG8Oe NgUWLju1Mphie0OqTjr5Ue qKGpTXnhY53wh802GTGptd OcS5tlyZDczvxhiROmefic CJdrxyB5HAKtBBnjvxpjOA YoGNaoW1ckInRmTBKqyWmr WUikl2IhFCRcILUxXtJbpM SaGBSyDps2GUEgyENfMSTf SnQmQ4vyxzchKwSZPBObq1 rzG1kmlBQIiUWcP4UnAMnt awCrPVctRGosXJAcQYR7IH 65IMdnPSBqdr43 CPT Code(s) (test code w1mgxYUyAMTztXK7PoVfQY = 3357) Ogm9puu1IqtBSyoWUvKFtg gSUbkiNvow58dLS6nX16TJ 9gHCDnUnZ8FPFncwW8Lrd8 EFMnBMXyvLCsO955b8vhg7 ywiwXboLM8kBmnSRXlUKTm YWluXGZzMjAgODgzMDUgWC RyBVP7FYOuPwEXYtleMPM1 CLINICAL HISTORY (test i9aiiWIcGAZqaIZ4YgUpWN code = 3356) Ugu6pkg7TikKQzuNUeODek fCQncaJzzv16tYA1zY82BJ 3rDYWrJwY9TXDjzcN5Iwb7 IUKvZTWweAOmO210s6ipr5 fahpOecQF6fYaeOSYpCQXs MIcsKJMdOvCirQUhLH2eYW Bhcn0= SPECIMEN SOURCE (test f6nqiWFdIBYybLR8ZxCqGM code = 3377) One6jmp2MukMIesEHoXWrk gFSkodSmyr30wME1qG95BN 8zWKKzShB1BOXasvD2Pov3 HGSpLUTlyFWhA653k4udu2 kxomBtpNT3bTtmBPHeGHMk WYvyUEUcVpUvDX4jPMiow4 VyhQHjxCfqZVLKEqGpL9Hr bQHoL6wnZCE2 GROSS DESCRIPTION (test q8ubiDExIRHhvDBiBqQzXM code = 3366) NcZDVio7fjKVLzwLBaRsQo MzNcZnRuYmpcdWMxXGRlZm Zfb8sof855mIDfl3keORLl AaW6lEBiTSVlcSZqN360u3 fjm7kvhgAqxTF2XPErDCR6 JWkcywAsabW1BAeogOBcZj M6LFzikfGdCUbpbqRvgaZc Pqy5UBUtJ414WKB9dZzsm6 zcPOA4BVHmWZDqIgRpKr6k xLEtR370CTJeITTEQRJnsB f9IYZfeoKzwkTabDNSe458 U315d9gnIDXqdiHzyAaEvd dcc3mhU175MGYbeVQyevNm TzJmTMLmrLOyiJT7DTCySI 9jpbovDdHfDL2zeckaFmSx OZ6dnwc6AqSbGA4hzrlaKi SdGAucSTOvcbhuWMHlg3Ph peoiBC0mG4Dab3P9qK2qfM XvCWGxeKWvIeSiQNEhbl2l tRXpMMfqm7KsDWW8jvU7yX VhgRWyICXoUX56Iudga2Hy HagcMMY2IFWlhgNdj8Gcw8 vnIiGlstQiX2dkY2ZySBOi HLFwRUDkPyNmkuFij5Rhd3 YljPWwrKz5l0ggTKKdTBUq vDobw9umSXO0JZDnZ0Q6xI Cok9chALymXQJaiQI1tzjg LBgbUXTykoS3lldhQYkzEJ AtkMS4pfdpOJlaZFLaAmC8 heijLRlkILIkANF2FEztj4 05ENT5IEwrCgnwQLdkXKCo bmNvbnRccGduZGVjXHBsYW luXHBsYWluXGYwXGZzMjRc hAbpcZtvmN7dQsQjZnBsEV xsYF5zEYWxG7mtrSFaSZZn MORyK1zsKmOfbH4jsFaqBH xmczIwIEEuICBSZWNlaXZl IYDrlrWmp5LiSSueieKbYS PlaORoOLYfTMCkNNHtAS83 B3SusnZaLTvrIOLbBNSqlJ 9zFH47oGCrmjYseeExMpct x1GjeYPhIgrqhFJ3LvTsvg HcFJQ3RP7vmVvweeA3mUSk rONwYpQwK63ofxTwVC7pEA Y8fcohGvX4jXQ5pbOmKnHb P34juW3aS0VxHPHhv3QpDU btWV6nqJ7lBUlsbIOkOKPj CXTblQk3CUSrGJSriiCqi8 HkdWx1hSVfYHgeYEXdiQ1i aT0tJGAoJLEjkursVUPxQz 7lUGPrN0MpirAcGRspQKPc wm1ttXmtJMqtVfPoXGVucJ loNUJelJwghdLyroMvLF7e DVSwW6Sob9Lsv57uwhKwJy UbZMQfOXDnF2BnnNXnMvEe aXMgYSAwLjIgeCAwLjIgeC GpKiDmK67cdOJdZPVvuwdu dAecr1ZhPAVdEFyhUA87LR doaWNoIGlzIGZpbHRlcmVk SEFjOHIapVOaxUI1NPRikJ 9ieM86paExlrSGUU9kaNNf UXHcooRPmNkyowTNhlu6DR xsZXMsIFBBLCBIVCAoQVND UClccGFyfQ== MICROSCOPIC DESCRIPTION h0sjpIFwMMRdmMP6ClNcBD (test code = 3371) Vki3gxk5PfaWTuyLOkCXlg nABcnbCafw65sEP8lJ09ZY 1qDUSsZnT2CLWjvbF1Etc3 JNZlIOTfzWCrN110o1vht7 svicTdgKI3rNsgVXLhHFEb NMgaJEZtSsPoEMHrZr0ebF VkLlxwYXJ9 SPECIAL STUDIES (test y3ityBOwRZDtc3yyHMHgkL code = 3376) FuZzEwMzNcZnRuYmpcdWMx GSgstbHwZOefx8VzD4QmAv AwMFxhbnNpXGRlZmxhbmcx CWOjHEZ3txLtGLAcZEzeBP ZzQJkvLl0qyYYkjAliGjTm PZUnl7vwsiIXlmdiwEk3m0 xqWKXcRtT5mKBjLBbvA2up jzWloIYlM8TyeMAneVl2s1 gvLhItQxR9sDEpIWaxW9fn qmWioOVaXRYfUQf6dE12QR TofK7ioFEaYIxfxeOiNsO5 ERwkCIDeAaG7HLTiuLZdMH DcS3mmCGVbCIagXZQcSFvo qGSjBJB5lVceq9G9zJUupB MqiRkvTkMcPaKjZjCXv4Oi ZHw1xGznT7FnJHFgRkD5lU QgUGFyYWdyYXBoIEZvbnQ7 cYgwqjLor79zeVVkDOHePD VtZnCihHsbWDTrISUBg3Xp fVaoOUH0nEp1uRmiVnvmVT G1But7RO1xxt36bai9dRdi QDFdnnuvNxH1EZaxXBStnd jsCWe2RWiaYDWvjUY4HHCs zRXlX1IwGLFuFY4bfaq8HR N7CUdyGGMiBdF8NEAaoDBi AYUpoWgeLUqim784GSN4Bl DiPQ2sS8Bhr1D1lQ4bzRBi AMLwkRFzHvBiGUHpxo6aaA RgXFkns0WlFZV2weQ6tFQt mOMtVXFmYZ89Srrxz8CaNw mtx5EyB17adGL7ZKzyo6ml CF4gNjB6chBwYGstp7cnnU 7yHcC0PEdlMB6aKJ4qIJGy jB6pyqkkOLTtKfXtgjzwGD AzcZqybkQbIt3euDyrSBY3 DHemI5asyB4jOuO8UQfzE3 oyrY1iQMb1KEbftAQ2YXMg aK0zXQ6rwqrzb9neZDhjYO gjOKLldyQ4vpS0XOEmtFHw Z9RcjJ5kOBKhPI4vjcahz9 kwOSR6FYhlPIQyTFU7EyGe JJTax4Bilwb3BoPxa0NblX QtBSqfD39xz661CNJfykVi K6xauEEwukbxjJHvsrquIL wylwL2NFMoJJTxYJvcVQRw XGZzMjJcbGFuZzEwMzNcaG ljaFxmMVxkYmNoXGYxXGxv O7wsKuCxJ3SmWLRfMvQmJF knRVitkCVsoDHdgCE7qW6e FH6tIXSoeYKlA1ZmZXIvso OajEClICU8qXPhsRDdRM1r TWwitGHkp6pnk8MgQ1qdsH uclQC2HK6vCAOjQOIvJLqw k0EsuK0dGmwxtREghybqZY xmczIyXGxhbmcxMDMzXGhp O1icOvJcOVQyqLvqXNomg4 NoXGYxXGNmMlxmczIyXGx0 cmNoXHBhclxwYXJccGxhaW 2kHfCgMaSgBapeVC7iRIFv W7ndgWDkZCVuMVSmG5yjDe DvaB7daOssZVrkSaMvVhVv DkXFc017op9dMWXieEJdry THpQBiaI9zLLfqAXoaHVcx eAFiQZklf1tpUYKxa1d1mG SpHFHagpOnz5gwSCdjuiAl JTWhfMGhaCZdBNGzx93zOP zfnJwezRlwIHKty7SjlAvx c6PlUyVjVRrve0YmJ33njS JvbCBzbGlkZXMgcnVuIGFs d43aw4liWOUlTmU2uTVziN I2xXJngGYfz9XknKakAQNh h6kjTVRlgp5lyttmfUGay7 TbhG9highxTOevaDCjdeVr WTAgj0z8hYHfSHSjCNPrXJ tdfKd5GMBko371kn8lnkN4 mGLdIAV2BSqkDNIxUFUevr UgZXZhbHVhdGVkXHBsYWlu XGYxXGZzMjJcbGFuZzEwMz NcaGljaFxmMVxkYmNoXGYx EXndC5ffJxRbQ7AnQXAcDa WncNYgH3xhrAGfDZPnIAts XGYxXGZzMjJcbGFuZzEwMz NcaGljaFxmMVxkYmNoXGYx LJtpE1cqLqHfI4LtCSHwOd IgIFxwbGFpblxmMVxmczIy MLtndtosXVStEXsgA2ysMx KaUJYenJxzWBadm7UmDWKn QQWhVfnrclPcUAo3baPuFT BhclxwbGFpblxmMVxmczIy TRwfichwVFDlHRnvS4vmRw HjQCYfcBftUHhlz4WcZVPb XGNmMlxmczIyIEltbXVub2 cxw8PuA1eycHcjqWB1LWVk S0edmGOfnDR3YLP5zR6fNK ggaaNtQSZuk8KoJJFgXLVy RnP5hG2jXQK8YgGXrTqnSX BsYWluXGYxXGZzMjJcbGFu ZzEwMzNcaGljaFxmMVxkYm SuZNMcZVxoW1fdIrCuI1Ma FQQoLeVtvDdiBSmoDCx0Te xwbGFpblxmMVxmczIyXGxh ibnzDRNnAZrkY2clUeRmAM KyyKizUVbnv3VvWSOhJEUa MlxmczIyIHMgTWVkaWNhbC VUBW72CMVjHEHgrSaxvK8a cDMUFGKojmB9n3N1GJtiIO SrZMn2TLopfkOrPDVbxB8t IBJkIP8iUGq0yzRwVDRpe2 MyKJ0dSIGbkAPaVBP9PGWh z9JbI1Snf2NfGMPnQFGmlm 1hwhVoJgKAwLWpLZMllv47 DHJaXI9gU1viCTEjOMYaex XdxZArh1RpVSOznQM5iDYo RN8WCkKIe38xDPAzEWQDwa ItPWRfqJvedDE4yoZ2vF1y LiBUaGUgRkRBIGhhcyBkZX Iyzp2dpdHhQMTyAYCjj8Zf bTVqzHKzsmMmH7Nzf9PzEK Atay14NXbkfMAexk36TF6n T3Dvs0AkxZ4lGGhoEEZoz6 PizLAmySXtWSDpc9NpO8zy dvssFKxndKAroY2kHXStZQ b9KUUjn3XsGUKns3YeQrJt cjEsGCMtYZIiHGHbiK44UX R3lYhcvAayzaHvAE8wERHx jaClXQRdBTBejS4tWWybpw MqVBIuwoK8l0R5IAtsVQVk dpLyZuhiKYC1sjTpfvT1gD NoF8xixjwpVWhsUICys1Ma jR1hsRROnXIol7XdkLMwvR CTfGNnGO5nznFiLV8oLAR3 ODggKENMSUEtODgpIGFzIH N7WEydXeonPFJ8wwQvTNNk t5MwRPtnD9bhI22xxGucvJ b9dVIqjFopbEIvjDBiBWMh ygE2m1I9SQIwd9ShbyvfBI BsYWluXGYyXGZzMjJcbGFu ZzEwMzNcaGljaFxmMlxkYm GqMIKqZJuaF8xzXgGcYlRj MxmmWHH3aB== Gross assessment was [facility] performed at ([facility], = 2777) Department of Pathology, [address] [place] [address], Technical component was [facility] performed at ([facility], = 2778) Department of Pathology, [address] [place], [place] [id number], Professional component [facility] was performed at ([facility], code = 2779) Department of Pathology, [address] [place] [address], [facility] [id number] 14:24:00 Test Item Value Reference Range Interpretation Comments Case Report (test code Surgical Pathology = 104) Report Case: [id number] Authorizing Provider: Sarkis Laboy, Collected: 10/01/2020 09:43 AM Ordering Location: [place] [address] ccu Received: 10/01/2020 01:48 PM Pathologist: Pa Peters MD Specimens: A) - Biopsy, Gastric, random biopsy B) - Gastric, gastric erythema biopsy DIAGNOSIS (test code = [id number] 3220) FuZzEwMzNcZnRuYmpcdWMx IHtccnRmMVxlcGljOTIwMl ihggMaNRMfdGNpH8Ytkolg XWxbHC8fKY7rdPdmqTWaoF MnHWHcIbQso7zxw841nSYq o3zuPYLGcpkzaNl5zIdeN1 5iw8X7NyxaU72riOMdAPxq bGFpblxmczIwIEEuIFNUT0 9CY0vuDRRANsIXQDSONuLY M3DNQXhPKW0IZ11CXDdqRj jNIRYECIM0SPVqtix3ORZf YCCYVuBGVCajBECFY3UPXW dJVEggTUlMRCBDSFJPTklD HLlQLSAXCHRFPWaPE4UGLV IMHvCQIuThMx7WZHndVL8R LAJNDQ1DCRYVJHOWQVdSP6 yUSIPgvga7XZBpYVXIVXeW VIyOUP0YX60DECDWTBKHXZ 6TVNTgT3lDJ23KQsEMZxWZ VElWRSBHQVNUUklUSVMgV0 cJHVVKT2ZYPZZOW4WSVjsK BDzqXQLjmQHpZH5kO7GAUH yTXgOSGKKZOezyA3TLZY8y GiMYZPRMUmRqVo3VRNbvTU IXGX7OPILYYMzRFW5MP3QB OSTBB8gzMHMpiVZaAK6aWn WDZWPUVePhDj2AXIPJH5YN TSBPRBXANiZXCAQHZN2IPE AbjLCeBLCkrxXSZySIFS7R QUNILCBFUllUSEVNQSwgRU 6SH4AVP5SJApMUJCPZR8OA BBEAE5SSPDJXXaroBVWmsJ IkCT8gD2bDQhCFHuSZRYBI F9DgS9hKDOJUFWjILASORj 6NDEFxVM2MQ0WHLpWxE6GI VFJJVElTIEFORCBWRVJZIE IMI4WCKDVBONnUHXDMZMMy ciAgICAgICAgICAgICAgLS IDVC0XPdVcVYCCPGPWRHGH O34LWXWUIB6WOKOASUVHRF JUTFkgREVOVURFRCBXUElU JBLMZSPUCDPsprm1EKGpWG BXQVJUSElOIFNUQVJSWSBT VEFJTiBORUdBVElWRSBGT1 DgBP8oEEgQV2JBRXhDN1Pi S7RQHO8YD27MFEVnlhp6FX XxZLPOQYyFKTsANJCND9Qx BM6CIQACGG3WHQXKOPKAYU bYF7xNZOCVDIJOOWMKSDWu A3VmS7YLQ5oQR49ATUOxsb 54CPD4YwAok2P9EAI2KKEs REHvn2geJIPjjTHrCxJdKj NcZnRuYmpcdWMxXGRlZmYw l2rns569xAUas3msWCCvYd U2nUWeMCTufUJdQ889JKPi UYyne7hcw4TdBUDcxTSun3 F4BVAOsclkdAb7uHmyL06d h7Y5FggdN8uxJDFmPKQtM7 BuUU5nAOLnMej1QLN1HAJ9 RWOmMDHjD1XxDQ7mVXVinS QuZWx9b3vgnNjxEMEpIUM0 t3zrFSlzzuMtET1zwy5cqI m8u7pagxEmBYMoKYWdtITK KUOsF9XwvMjsBp1swCd5pM qwZdpuGPN5Zyw4RC2dfc64 str6wMkoSFCemndhRpY4HV zjWZTfwqfeMYm7QPjtUGXp dUN2XLNrrOSaP5VmDOZeZN 3fadn4OGG7BWwsHOMeKtA0 NDBcaGVhZGVyeTcyMFxmb2 62YUG6BcAbLR7hO7Aev6N8 hY5zxIFtOXZjeTFnNnPgUY Kwrx6gxWPbPDnlr7JkBBV0 kvI3yUOplVBbAZNeSaJ4PP zbSD8mpc92BURwGTO9ok4l bGNccGdicmRyaGVhZFxwZ2 ReHOJov804LVQcW8CsUCPc h2Q9dkMyUxGeILAuxCF5dd W0HUWlVV7iuczjs1nfNRzr VXjgYAUqylR2bqM6VOEqmP RaW5SzcV0qRDThHM6htpjv w0epUMA3KWhkIEYsGMC8Yh GhJCVtz6Tnzsg4NlUzq7Dk hELuRFfhK73gs969GRMiyg YmO8ziiJRydigynKZgcqle UOkjzeS7BSCzCEqzmhdtRU FoIGtrM6rvWdImXEWenNea ZBitu7NzYOCoBHZiCtYdwL WgUUOaDnp7OIUlmYUcFLAn DrViW3xjpkevThQACCMud8 spS7oalCSDhSUoK3IhYOej ukWsRZgoHSyyDVEqULB0JS 60EMrtPVHrry70 CPT Code(s) (test code k8eyoCPyPBXbfPW0ScEaCD = 3357) Pyr3qeo2AknGSpmAEdENmp bOIjcdLwuu71dIB2oT17OT 5nSCWtNqO4RQTbcsI9Czn0 SLMdJRGzhFYvH412r5ikb6 vigpWynCX6zIoiXFNkNZMf YWluXGZzMjAgODgzMDUgWC FtSFL6AQKlPbUKCaljJAY6 CLINICAL HISTORY (test q7choZVbEJRcbVI3EtSjXV code = 3356) Fng7obr7YzqWLjfWJkTSha wESozuOgru66aJJ5lE68XN 0jTYUdWgZ8GREvzgH3Yll8 DJSxSGZvwOIcZ464m4xul0 fijbOkySE0rVttYGVjDSHq KYfoDGPmBgAcbAPpIV3sKI Bhcn0= SPECIMEN SOURCE (test b1yhgVPzMXKtuLD4EtSqUR code = 3377) Zib6jbz5RciMHdlJJkPVtm dAGetoCybr85sZB0oC39CB 2gSGBdEnK7QKYuitU2Oym2 PGThCBCupTJtE776x8wlc1 fsphYewLO4aLoyXPCpVPZh WPlcMEZnPzQfMJ9qRNpmo4 PhwMQwtStzYLWHThItJ9Iv vHJsD0njFGS0 GROSS DESCRIPTION (test n0mqgSFrHHMdkMAeDjFsFJ code = 3366) GhDOBnh2mcPCXfvNJdImAc MzNcZnRuYmpcdWMxXGRlZm Wkz6vcj879oWYxc6enDAXi BnN0vWPcWJJajPLpO674a9 jmz7dvgfPdyFI2ZOWlXGX9 PTkxkkYohrK7CHyaeHGyEs C5JBnggjFyMZyaklPdhaUm Fly4KZKzR763GQD5gXqgv4 vyDLR1LRPgFANyVdNcNr6s yCYbA247JOIaFGVSKQTcaJ l0XJWjjkYrodOzqOAOj813 P564c7ydUTJwyoKdxTbPoq rsx6zpW391YCDipRNougJm KhJyGOMwvNKahZD3WELiZV 8ewfhtBrLeNY9pjhcfCdYf GF2xzso6GtZkJN4kzjhjKe MlZPdxVMOxdeaqFYCbe9Ix goexIM7yN8Cyz0H4kM4gmD SgWRZzmRBhVhXbORDdch6t zEFiKAxny3SbAMZ1fbP4wD JfzXLhPVCfAT89Xckgq9Lm MysmUAK3MVVqtfOyv1Hgf2 ynLxLubvIiR4ppJ3AkQFSa XTLxXHZgMoZcqmAlj0Sck1 LwiKStaEo7b3ykTRWxUUDw kVqok1nrOKJ6LYNgZ7I2eX Civ7qlGOjgBAGazQW6kgvm RCxfBHKdxdW5zjdiLHvbEF RrgWD2vbsySEoaJFVfEcZ0 zovlSCvpYKQuIRQ5MVazp7 04TSQ9OHsiJvejWYylYTRc bmNvbnRccGduZGVjXHBsYW luXHBsYWluXGYwXGZzMjRc aVdlcFjmlN2fPpWoVySwOO eaUT3rEZEgA7gwkHVvYMYw RZDfC3xnRnXybK5pkRqaRS xmczIwIEEuICBSZWNlaXZl QYQufwHdt8JyVYkabgRnJO KrbIDtTEHqATTiMTVnDZ20 A7TgxsZpDPaaPMZpPOIblG 8nVD83yCHswmCgduBiUjcs z5ZouIDlCofraKF7GrElhr RoBDY9ZU7hxOyrqlI4uBXc tUHxKoReK86qvpTsDA5oKR M4vgjcQcU7hXW4aaZhAaKo V50uwU7pW3TnOGVbl9UbLJ ekAN5ugI3yAHypuDOpFEWo FSCjxOa5ULSeQALcdrDag3 NmhQj4qJJoTNrzFJZgwB2k dG7mVKIoVWNwdimjEXAkCo 7nZXLuA0SkwfIsTCjxDDCv tp7zaJanUAjmCbLgZFTorL klNKWbeYazjcLoexYiZZ3i POUwW7Fus4Vqr38yrbRySc JuDDObDGAjF4CxlXYvUrLe aXMgYSAwLjIgeCAwLjIgeC DmJlTrG86imCDzMXVyysto hXpsf9FuFPXlFCalCH81JT doaWNoIGlzIGZpbHRlcmVk NGBeULQreOOzhRX8ONVbyD 7jnK37scUfayAFAI3vgSNy EOGadkRDkTunneIVhnj2KV xsZXMsIFBBLCBIVCAoQVND UClccGFyfQ== MICROSCOPIC DESCRIPTION t7kjeCRaUQMvdNV0CeLjWT (test code = 3371) Ijf3wpq5QysIVcdOWnULah dATnutSzpa50mEL7uS08LU 9yBXCiFfK1MGAlysO4Kdt5 KAVdKGMlrEEsT299z4twz3 zaglJweSL1fUxbTAWjIWNp SYvoNDBgUwAuZIBxFz2eaR VkLlxwYXJ9 SPECIAL STUDIES (test v9mmhPIwDSEov5foDLEjpB code = 3376) FuZzEwMzNcZnRuYmpcdWMx FNvtzvUqYLkcz2AiG6CuQf AwMFxhbnNpXGRlZmxhbmcx MPMfFBR0vjLjNWFfQZejHM UdVIgfGf0ysPXtySatEfXv FUFgs1aqmkFYklffwQt4f5 kbYFAcAgL1nGMzXXsmC2tm toXruMElP4FjqAImhPm2i2 kmQhBsYkY8uCMxTOzvP6dd ouHpoVDeJRLoBVb7nB91RZ GawQ3feHIrEVobwqAhRkS1 OZrbPFTjCeR7RFHibILrPS AhE2ogPKGsQIzlVBPoLRfa oTEzEYX4bGlqa5W1cUPlnV KhiSarLsOyJxTzSoZKg2Jt NEl8vGitX1RcNEUlPaU8aW QgUGFyYWdyYXBoIEZvbnQ7 gRdzerJyi08trSEyKYXmVX HgCmAtfJmhWBMlHKFQw3Lo cThrBWJ1uAx1wDrbVphhWH X3Uur0JH1ykc21mjd9tErw MOVzjgucAaX0QKezOHZyql rfJOz1MBwvNWUnlPL7QYDg wXEqS3JkHFVyOQ4ybcp5EJ M6NFhfXJQrKaI4MTLcoBKu WJZkoYvvYXnyo036UCR3Jn SiUE2jY1Bvc5W1aR6lgQXk WWOptBHgPcUfRLCoxx0rkK ExNAibh0RmTGU7urZ6sJBm cXRvQHFqCJ33Kfjgl7McGb bim5CaV45lpMU0ALomp0ml PE0wNoT2phTvMLxxc4ctrC 9tHiL5PDwsJG1dEA8vZAHk dP2yfooiICDeDkGnlefnLC OuyVigowUwHr0tmCfdTOF7 CZcjL9qkkC8eCaA2AZnkO2 qkuA6pSJk7PIaqyNA0FFUm zZ4gJJ3enwtku2qaZGihWF kmMPKpheD7seR2OBRhjGQy W0GptR8uFKSsFU6pnasor4 aoBKR3FIetQIGkGKR6UfJx AUVbw3Vxvar1WvPns9FpeL WhJDbwK65lv045RXHrjaWe A0kscBLykmivaRDyuqumMV ksueM1GIQeZJEyPFkxAANx XGZzMjJcbGFuZzEwMzNcaG ljaFxmMVxkYmNoXGYxXGxv H5ugQeBkF2ZcVVNaLdAaBF plDYvndBMahVFrkUL8kI1h TE3hAKZstPCgS7EhERJujn GyvWPlPVY1eAXsyVHrCW9j MImxfAYkz3eqy1CpR4csfW ybdWC9NZ0lMWBxRUCzYAnj k5WbzG8cCbrapZRbolsnCA xmczIyXGxhbmcxMDMzXGhp Y0psHaCfGEHivOjnQMjtm9 NoXGYxXGNmMlxmczIyXGx0 cmNoXHBhclxwYXJccGxhaW 2wFuPxOiIuAmveRH0vDEOj O3tvvTMkGSFvTEMsU6xgQi WkpS5gqBlwHYpoOiBrFtAr NfLFm017zh5pKYFfmEAsmg ATjHMflE6aRYnrJQotVYir tSIiKAyjk5gdRUAls1c3mO WvNSKfchMsv0rwKHyklvHo DMKfnWTxmVMwSUJle42qRH ddmRajyBmaWNFfm9KxiPtt v7RwWcNgJXali1FjF64byP JvbCBzbGlkZXMgcnVuIGFs p58ui6orXIBvUqZ4pLKybH B8xOGocQTkm3TewCazVWLx y7hqWXCjjz4kvdvraSJad1 WfhN5rebpvJHpmqNEpmcLx PALsf4s3xJWtUEBeCPKsVU wfsUe3TUSam162ec6dwaT5 oZYhQIO3DJrwQYVqYJDcuo UgZXZhbHVhdGVkXHBsYWlu XGYxXGZzMjJcbGFuZzEwMz NcaGljaFxmMVxkYmNoXGYx UIisR2ntBeGpJ4RpOWQgDb TxkBAoB4nuzRWdHVWhUOmt XGYxXGZzMjJcbGFuZzEwMz NcaGljaFxmMVxkYmNoXGYx NPgwF5ggIvZxE5FoWSLfUd IgIFxwbGFpblxmMVxmczIy YQwkwqqyGDXrPKpfL0xiBw UwLRQvgDfqMDwpf8DtZXBu VQGwYiifrbYbSRt3nsZeCD BhclxwbGFpblxmMVxmczIy SLuwuaqvUWRpSQqzI7psIo IlOVRrdExmVIhfa4GhCEIs XGNmMlxmczIyIEltbXVub2 ihf9NvO5bynSbauKN6TEFj Q6tpoKVpxFG7MRW6kN6kAC kxqxLpNMRqq6GsKWDcFGJg KbT2qW3cXMM9UbRLtMewKU BsYWluXGYxXGZzMjJcbGFu ZzEwMzNcaGljaFxmMVxkYm YcWHThKRtsC1axAkInL2Mh XTEdTaDlsPoyLQzhXWm8Jf xwbGFpblxmMVxmczIyXGxh ypdoKOLbNKiiZ1moOwCaSJ MubVkaMZwqk6FxZLNgAZAm MlxmczIyIHMgTWVkaWNhbC YBEK40YXExKPUokTtxaL8u oEEUYRMgnzB6k5Q8QJoeMT RaNOb5INdxzoJkEELnlY7t TMHoUR7eFJl6pjHgVFUwz8 VoYF4rJOWtoXOwUYF7ASRj h7BzU6Vec5KkEUIsMQDzai 8buxXnPmGQfQLwRAUoee27 CTGaSC0lY5pbITHeSLQrzc AmcBHmg9XeNCPneLA5kBLk TF8NDbTOp15zPQJlHZEXaq YoYFDmeZdntFW1vmZ7fG0w LiBUaGUgRkRBIGhhcyBkZX Waqw3jheUgYUHzIJDyr2Ex wCOpeSYrjdXjC4Auy5WxQU Xfcc21PXbnpGAdth11YX4u I8Plq9MqwU2fDEmwZXJvo8 EibHFwwCFjFXKau0UyH7nz uoliVIxhiEOalR9cGTLiEV l5OKWrx5QoNSZrk0GfOgQh gpFoEUChPKGpNEYohB21DV B4vDfunVajniUhDR7fFXYm baRiTRArQWDpmM6rZBilss BhYRDhjtL8i1S4OBukJLKo njOkWwntURH3ovXrznW0zR PcU2dbixbxHGaySZDlj4Vb vF2aoULQfWMot3OchKBheY NVbPShAT8gkcWbFI9mZTB5 ODggKENMSUEtODgpIGFzIH O6QLpjNvsoKYD5isBbAFGv n1TsEZcaO5nkF76pyXhaiK c6zHMzmBsugSLdiCLmQXOo kgA4y4A3EWWjp9XxsrazAS BsYWluXGYyXGZzMjJcbGFu ZzEwMzNcaGljaFxmMlxkYm VvFGNmUKfeM3qfOqCoHkMu ArxwACY3wJ== Gross assessment was [facility] performed at ([facility], = 2777) Department of Pathology, [address] [place] [address], Technical component was [facility] performed at ([facility], = 9088) Department of Pathology, [address] [place] [id number], Professional component [facility] was performed at ([facility], code = 2779) Department of Pathology, [address] [place], [place] [address], [facility] [id number] 14:24:00 Test Item Value Reference Range Interpretation Comments Case Report (test code Surgical Pathology = 104) Report Case: [id number] Authorizing Provider: Sarkis Laboy, Collected: 10/01/2020 09:43 AM Ordering Location: [place] [address] cc Received: 10/01/2020 01:48 PM Pathologist: Pa Peters MD Specimens: A) - Biopsy, Gastric, random biopsy B) - Gastric, gastric erythema biopsy DIAGNOSIS (test code = [id number] 3220) FuZzEwMzNcZnRuYmpcdWMx IHtccnRmMVxlcGljOTIwMl sqxpXiNXYixMToA7Kzefwj PYgmRQ7uSQ9koTfomRHkdA KkHBHtRtJvd5jjs077kEOs t7dpGFYGlpvgyUg0mRbvK8 2ws0S0YsjmS19snNHfYBqq bGFpblxmczIwIEEuIFNUT0 0MT4lvTKMPYqGHLWVXAsMV N0VXRMcMSN8UP91FJHlqBq bRKQNSIFP2JGYcogo7NNQn SCMTAhIFTGtxIPAGU5JTRI dJVEggTUlMRCBDSFJPTklD JLlRDMZQUDUSUNvWP1ZRFK CHReGRHnAsSv1VFLadFO2B EISWAF7GQUXXTQNBCYrLE5 fKGDWgidr4NGAeVFBHYRxS MGcMGT0ZP64GNMFBWDLHMD 3WNSMtA2aAL20RUnBVZhBB VElWRSBHQVNUUklUSVMgV0 vKVVFWJ7DLRNRBD2MSZkgN XEgmRPQolYWwLA0dZ9EWLL gBYePGGWFPKymfU5UKMR0i VvPQAJCWIgPqCi0NUMxvYI UMBN6YGPBSJXoEOS6FJ2XR HHJLS2igGVBucRRaBR7iRo DBVATKAmRzKx5SNCMJA2DM TERVCRPKWoIFDHRGVH5EHF NfkYBbEOZdhvZMOaWHHE4S QUNILCBFUllUSEVNQSwgRU 6TS4RXU7XJGeXTGPQXQ9PY HYXOF7POKGPWFlamZXQdlA SiUH8lI9qHYbONUmCAKGAM G9TfY4bUZBBDNKcGHLEUOv 3NDEIwMP8LY0KVEeDuO5XG VFJJVElTIEFORCBWRVJZIE OUV6GYQDTFWTeCLANOJZDf ciAgICAgICAgICAgICAgLS LJOH2KQxMxFGMOUJNCREOS X08XOVDYHB1BQXPSARTDAY JUTFkgREVOVURFRCBXUElU ENQPRUKWTPZiqaa6QIVjGX BXQVJUSElOIFNUQVJSWSBT VEFJTiBORUdBVElWRSBGT1 HfUO6zZIaHB8UHFPsGT4Xq D0WSMN9CS24UDFQlnkj5KX YeBZNAZNcUHMpGCMCSM8De SV6BUBIHVH9LEDQFIVQIVY qLW9rYKUIWIYGBQWTTSWBx N5IiQ9AWU8fSV69EYGNbih 20MWI6MnHpq1H5VCZ1QGKr IIUjg7msNXLtvMUiPqZoCe NcZnRuYmpcdWMxXGRlZmYw g6txp275gDXcn1itBDZfZu I2bBBpIPThoMUeF709EXRn EEdyg2sxj8IcEQJxkTGck0 N1LBOZyczwfPv2uUcdZ69b o6C4JfibT8stULWmCVJiA0 RoZR6lYSCfXpl3XVC3KGI8 ZGRsOGNeS2LiCU4hGOHlwR WyCOe3v2acyWqyBEYmKZS5 e3inTDlerxNoEI8otx4yhB d8w1lpvwHaTHXxCALicXPH DYFsX0QacMevJb9luAk9fZ nvMxfcSNU5Hvp3TR9rqe81 crj6gOmpHBBswizqSfM9LR znLWUvuervCJu2CJauVHCx cEA3UXNbwFAoH8IdQYTaMH 0ybyq4QHS6XBloZWAjRmR2 NDBcaGVhZGVyeTcyMFxmb2 31VTG7NtSoIG3xE7Uen2W0 sL2taCSnQLEgvCBzOiRyPS Fcoj6ctHTxNVmmj6HjZDP7 uuI2sQLqkQMcRQMhHbW8ZA ymXD8eyc01XAMwIUW6kr6c bGNccGdicmRyaGVhZFxwZ2 FdCRWki287EFJyF9GvHFIa s2D0scXhZiNoPTIzoTC1mf G5QRJyQZ9ovycjh5cdVBqz SNprWDAbxyY7swR0WYDihD GoO7BfiS1zOYWtSD2wbqdw t7wkAWF6QKurSJAeLLL5Gi HiYKYwb2Gfkzu3JtAzf1Op iHKjIPpgV81tu933WCKnqw QpF8thrSMoopyljOCassuq EFvctpS7QKBzDIcnbwucZH CxEPdeF5cpRmClNEYwvEqj UZoym7QkOJDeDHPuYiCtyZ ZsIAAnBjo4BIEcsREnCBTc OyGlF8mfvfcsCcGZDJLvf1 olF4ierSAHdMJrD6RzONyf fnZrSAbsLUmkTANvRRG0TS 41ARvqMXYaji08 CPT Code(s) (test code x3zexQWgWQUfeJF7DzXhIB = 3357) Oeb8lcp8BllVDcnVCbQOuo rZNiisElfy46nHE6eR04OB 0gHOOrWfN6IEZqyaV0Mlp2 SVZpNYNyaJOfV708s9qec6 qhskCyrAU7jZnuJWJzBPVu YWluXGZzMjAgODgzMDUgWC TeHKP1YYWyDkTYKtkvBJT4 CLINICAL HISTORY (test m5fipCCbXIKcpCE7OgPuFR code = 3356) Pbn4hns2ZpnHEiiJEiQPdj gSYkfdRhwj37eJW5vB71IX 7qUBJqKyY7LBUcbeK7Nxm6 EEFfGXNzlVZuY297w3hcz2 zkweTjpWA4cRrpUDStDWYj IBfkVYBfZbRbmTOwBM7hUH Bhcn0= SPECIMEN SOURCE (test s1nolPJkOKPsgAS7AfDlRF code = 3377) Jeq2tyy0PleBSqgPRnCLxj yAYcffEhhv70pRO3mR50IS 4zKDIgMsP5ATDmgwR6Ggi9 IDEnXEOnsCBuC144s0iks8 yjgvOgyVZ7mPjtJKUeBIJk YYslMQKdJtJjVQ8gGLecd3 MizTVyoOyrCCFTTvIqJ0Wr cDVmB9baYAO6 GROSS DESCRIPTION (test d7jjwFUcEBKjzIHsMbEjEH code = 3366) HoXXRpl9yeWYPlhGUrDeWg MzNcZnRuYmpcdWMxXGRlZm Agv0mif548tPHzh5bwAGDi HhQ0eTAwHCQblBSwA462t2 cfm6eaaaAqsIG8HVAoYHZ3 FUxjovXooxP8SWxbiFEkNk R3TKgkeeEwDWmipxWjvoQy Yox2NQSvH076OIS5cJlqc4 etQXB4SJMyGDAdScHiFp2t kMIcW637WCYgNSKFNJTtzU u3WMDmvbWnypWkvUJBz508 W818n2exOQMkipPevAjWhn cww6geB510CLBnyIIafxAk AzHsKBRmkUYevYT1JFBpQR 4mbfybVuXvHU6oxcwvPvDq DX0gknd1EqFzKY9svpkmVo UeGVujLEDcxppkJCIvx4Ja djvgJA1iC5Mfp1W5nL5ysX IaFASjzGCjSsYjBAPofx0t xSAeYLite2UaKFA6rtM7kF KctBFuBZCoJM71Wllhl1Dd YpvsRMW4UYLxekLou2Ihy1 thVgExekLkN2ddL5SjALWw ITHhMYPiAjDappJia7Jbd7 EfqUKezGj6n2ynCYTdGYZi rBfir3ecOOX4JOLiL7S8cJ Ebv5okSBzwKPKliUV6jfux KObtXQNdpbZ6vkofMUkgJY OgaBK4kcovGQjrVSQcDgV8 pimgLGylJCMfRPU3NQmzc2 70LPX9MPixZcvjIEgrLYQw bmNvbnRccGduZGVjXHBsYW luXHBsYWluXGYwXGZzMjRc tAtisXvymU2aRuQmThJiVA yxLJ0cFRNpC7chfJFyHTNj XSSmW5iqRmSjpT5joSoyUZ xmczIwIEEuICBSZWNlaXZl OSXkpeDdm4OlATcqpzOoGY DoaQLfVFHcXLTzABSeED40 P7BbbfKhHRytCELeCOHqvP 2eAU77sEMcqoUyulDsOswv b0NqbLYrGngpsSF8PtFeht SeYNJ7YV3dbHcigbI9jTDk lMLmYzOuA28welPnIR2aST Q1foolElL6zQI2ykXgOaBl T09knI3dT8PbNWExv9YoRD oxOA9amT2sKDqcaXRvGTGm BNCrxOt7IZIrFLOiltDal8 UujQi8kYTkLDnyJBJplV5c xB8dPQOkROWzppomZCVlVi 7oXAQoH9BguvPkBKseKSZj dd1phIcjLOspQvMeEGGncM oiGGEmaWvcfaNpwvGwVT7m YHPsH4Gqj1Rnf58qctFiIj MqHDAcKOIyK8CjxPHtIbXp aXMgYSAwLjIgeCAwLjIgeC YwYtIdZ19wmIUvCJObvjwp mPlrp7FgQCTiRLgqEI21UO doaWNoIGlzIGZpbHRlcmVk OOQvLGKhqICzfUD3RJQfvH 9dfI65mvUafgQGCG8qdIYb YVRylqBYyBjniaSByaf3OW xsZXMsIFBBLCBIVCAoQVND UClccGFyfQ== MICROSCOPIC DESCRIPTION j6icmIWeDPYryZC2TnGjGJ (test code = 3371) Qfe1dvz3YonSVnnQWrDKua cAMjxsEqvz59lYV7kS24LF 5wZFQeIxK5AJJtlaK5Vgf3 PYGhEPCcqMJsP760h7nta6 vkkxMwbCM1qJblCNLfJHGu CGquBRAaKsLrFBPgJc3lsS VkLlxwYXJ9 SPECIAL STUDIES (test l4fghJVgQAKzi2cxZGPrzS code = 3376) FuZzEwMzNcZnRuYmpcdWMx XNxtoyPlWNtvj4HnF3ZvRv AwMFxhbnNpXGRlZmxhbmcx GATfNWH5drGgAJWeXBizGW HtCVkePk5ruOFivLjsVsMw WUAgz4ezhyADertoaZt4m1 ypOTTvUuJ6mAHaHTqxZ5ru chWcuUAsQ1ZxlVIrkNk1k5 nlJvWvHlO7kYJpUVwyJ9qx jsDriWCiQDCaKQk5nS92PI IiyP7ahKIpNZgmrgJiHxN4 KSioSRQpBnO5XTTklNXgWD OpN1cuODRdEQzpSLAkKDxr yVWtIIQ9mRsxc3H0yWCyjX RgtVwdPgGtYqRzFmZJh6Ro HDb2vZuwQ7TyWAByHdC8jC QgUGFyYWdyYXBoIEZvbnQ7 yFqefeQlk00vdYHxBHYxNF OzGnPbgOxmOFLmQESSk1Fg oMohSVT6lRy5xMooLspwFK R9Mud3YX6naq94vhv1rOxb VEMxjkhsTcG8TDcoAUNlsx ciXHu3FFpeDJKmcEP5DADy pQRgS1SwZHVfVZ3awht8YD Q7OXvdOATgOoF4XIXoiOPn WQOtzRrlUXbrb007NLI8Xy PaNN6lP6Mvg7A5iY0dtXEn UDRtoEHoLzJwVALqpn5nuQ LlUEzzo8IgIXN4sgY7cBSr mOQxBQEgBB80Thubl8IlVs nvj5JnM27fuAT8NOozv4vl XI1mZhB5ajNpXQvun0uymW 7qHtM3KMtoIK2fMT0kASSq hN1tvyuzMBJuUnJzhnklHJ DqpFybwiPeLr1yjOppEQX9 YIwnZ0rsvP8dReL7BAnhH6 lgxR2uXLv6WBchnQB1ZTGb xV9wXN7yphvxf3auYUodDK jbFDNeyjM2jqI2DVNioTQb V6KtwU4nBTCsDI9ikipfe5 stYPJ5BSauQHWdSQF0CqEr HAZub3Eeoqy4RbPly6KjcM VvFLpdZ28py753ENRjhoAw X8icdZUguresbFYowfpiPI uddrT6SWXcPOJqEOsxLELx XGZzMjJcbGFuZzEwMzNcaG ljaFxmMVxkYmNoXGYxXGxv N1prQuTwC0FvSZIwViKhMP nfQReckBCjqKApqNZ7qA7q CH8yOQRahEQeC7RuZCEdgj DazYDmTYC1tPPdkAHzTX2y DYeweCOag4tvs8IqN9hjpV yoiWV6BE8qDBSlBUUjOLrn f8IkxF9wDlbvxCHschqcLP xmczIyXGxhbmcxMDMzXGhp U7nzFfLsAZKwkDtmWKcnj5 NoXGYxXGNmMlxmczIyXGx0 cmNoXHBhclxwYXJccGxhaW 0aFwKiXlWuYaitZB4wJONx F1xecPToPOPnCTTuA0bqNk RjdY2ltBeeVSvkTqJjOeVx ZwEXg371ys5qRZZhdKKcqi RWtACxtL2uRWklNVxhSFqr lZPqTIkxv1wsRSYfg7b9oU SrIFSymkAkm5ayLYnprmMw CHWqyGPpmHBfLZXjk91bTJ aokAeskYrkMDUin2CltJyc q5VkNpSsAQvbn8GsD01xfD JvbCBzbGlkZXMgcnVuIGFs c81bd4kqVAMzSdB0xRJmjF J6wEOtaZTqs3NedMtcTZFr e3bfNFDfkn3xaxeuxOPwq0 MtnJ2gtebzMWunwXKkbxIr ODAnn6g4tWRyBMGgMSNtFZ tteMu9WUIdt366rk1sztQ6 hGLxPWV1CMenRREiTXYvvg UgZXZhbHVhdGVkXHBsYWlu XGYxXGZzMjJcbGFuZzEwMz NcaGljaFxmMVxkYmNoXGYx CJswT1dmBaMrO4LyRXYvBk UhvBNpR0ajuWEiMRPyNOyc XGYxXGZzMjJcbGFuZzEwMz NcaGljaFxmMVxkYmNoXGYx NYdeB2qeEjOtW9KkVQKkBk IgIFxwbGFpblxmMVxmczIy AOrxheqoEJTaOBazG3mzFa BfUDQmdSssCFete7WbRKOb LDDtIhsljfLsOYo1pdKcDP BhclxwbGFpblxmMVxmczIy BNdjgnzzQCHrUCcxM9lgWu TwNEWceGudXWcty7MjJIMk XGNmMlxmczIyIEltbXVub2 nlm7TmA5iqiSdlzRD9JWYz X6gvsEYylSF4ZIK0eM3eDB bccsMdLMZuv7SsJYSpTZWc BpO2gM1sQUX0XfDXmZvhIR BsYWluXGYxXGZzMjJcbGFu ZzEwMzNcaGljaFxmMVxkYm XfNNOwQTqhI6dkOjHkS3Be MKYhFrMxgYknZNjqVIn7Vo xwbGFpblxmMVxmczIyXGxh zrkuRHHfSIsqD3nhGzDsQY NnuUoyRVrps5AaDBGuIBLd MlxmczIyIHMgTWVkaWNhbC YUEH78EOVsPASjyGrdgZ5b kHOJYHXzrlZ9a4Q8ZRdnWR GcFPw8GMcvtzUzQXAizV5x UOUcDD4oNPr8cbSvSBIhj1 RzNY3xJNTloJKpYJQ7TFPv f8SkQ3Eij1BgMMWgBYOyvs 3ftyPiBjUEeKGzGWGueb76 JWUqOF0xF0iiNXRwUYUazs VbiFMmi4McRDOucNW9iUKi YG9KRmJCp64rTLKxKCXTiz CgZVBvbPaovKN7ujZ5vW1i LiBUaGUgRkRBIGhhcyBkZX Kgag3kzzRyXJVjOKNhn0Mu tAMejXQolhBhQ9Nxu0QtTM Ljch03NIodlZLgvj90ZR8g B4Krl5YkqA9pSZfdJOGpx0 NitCIujMXhTSTun5OuF0qp gsxcSInpxNRypV7zJNAcKI w3FIWnx2RtNVEzn7HcTmDm tkFqOILdZNOsEDRazE99EG N3bIxfqYiblkQnZV4pITTy jjSyUCThQHYeiE8jVOjyep KgHHZmddU0n0X4CFjfJPAh rfOhVdqyKHQ8fxIftxK5zV WxO8aobvgzFQgvXMVgc6Tl wK2fxTLBsUYis1OwvZYeyK XWuOJfRX4slqKeLZ9iLWE8 ODggKENMSUEtODgpIGFzIH Q7JHelGpymSSP2yyLcEGRb m0EoLMjaN9ezY00nsVfauX d3iCMrrKqygKQrdUMnHIRf ekP8j9L4HBXdf7ZulxpjBU BsYWluXGYyXGZzMjJcbGFu ZzEwMzNcaGljaFxmMlxkYm AjHEVuXRdeD0cnIpMiPoAg EugqXMI0rO== Gross assessment was [facility] performed at ([facility], = 2777) Department of Pathology, [address] [place] [address], Technical component was [facility] performed at ([facility], = 2778) Department of Pathology, [address] [place] [address], Professional component [facility] was performed at ([facility], code = 2779) Department of Pathology, [address] [place] [address], [facility] [id number] 14:24:00 Test Item Value Reference Range Interpretation Comments Case Report (test code Surgical Pathology = 104) Report Case: [id number] Authorizing Provider: Sarkis Laboy, Collected: 10/01/2020 09:43 AM Ordering Location: [place] [address] ccu Received: 10/01/2020 01:48 PM Pathologist: Pa Peters MD Specimens: A) - Biopsy, Gastric, random biopsy B) - Gastric, gastric erythema biopsy DIAGNOSIS (test code = [id number] 3220) FuZzEwMzNcZnRuYmpcdWMx IHtccnRmMVxlcGljOTIwMl pmwhAqNLPzpODrV4Dqmhmu TBeaKW7mQX5bqWxvyWCcpO RrLHFyQnYbp5gay573rFKg z3kmNKOCztgbcAf0fRdaC5 3ws1H6JypmH63cxFHbXJid bGFpblxmczIwIEEuIFNUT0 1IQ4haCPCWIhFHHKVQHkXC E5MXNGpJKL9OM54IGDarAg aXIGTPUCB6EXCaais3PXRp IGWMZeLEJZigNAVKB3HHQW dJVEggTUlMRCBDSFJPTklD GNmIZYZMJSNMINoBO4LLKK JGEgRYKlIoSj5HIPxkLM9V MSHSGD7AKIHLJPBVRXwGD3 cHVZNafdc2VZNtEJZQSQgM KYsKXI9AK55YXWGUOGDVOS 7ZSXNwU5aJE33XEeSLKtZF VElWRSBHQVNUUklUSVMgV0 jXAVEDN6NDIQHYP8SAHfwF LLawEEZlyFRoRZ2oG9PKTO oHUlXKKNOFQbfxD0LFVQ6o EcAHVLXRMgFmJp7SLBtgND FGRI5HFOTOXVyULA1JR2DW LTEZJ9oiJDFncEUuGL8dTp CEEKGHNfFaXp3BFJATC8CZ HIIWQKIJMdRSKQJTUW4NGA GdlLYkOGGqphWDYvFQLH0H QUNILCBFUllUSEVNQSwgRU 9DX8HTN1DOEeKSTQCBT9GY UAZTF3LNWUSPDyulOWTltU BuPH9lT7dLInKMOlJEDCFT B8GbL3hBXPQYKJaINKQJAf 3ZCKWxOL5UJ4VZFyJzV5HE VFJJVElTIEFORCBWRVJZIE LTT1JYZYCROUaCCDESFHRt ciAgICAgICAgICAgICAgLS XPNW1XXsVkETUJPMHWAEWK U56UQXXMYH2JMZEALAVRVO JUTFkgREVOVURFRCBXUElU OHGYPVSYGPVurmu1ZTYsWP BXQVJUSElOIFNUQVJSWSBT VEFJTiBORUdBVElWRSBGT1 OmIN4vZUzRY4BNYFhTL2Kr N4UJXX0NF79JJVNvnzv5IH GnOLZGKGaTQNjKEMUHY4Sk TJ7XOETIFH5QVZQJUXPUKB sTW5rLSNUBUHFFEMRVHLDu D9PcE8QXT6xGS89YPBEuwm 84QTV4YqHvy6Y4LER7JTFx CLDhs2ftTMQclVGrMfQcVp NcZnRuYmpcdWMxXGRlZmYw z1lka662lWMoh6wtCMKqAr F1tWYdGKDgiDNiB154VXNk JPemq1ijm1HmTWEjeVDjz0 A8OEGDtxgkfWf4zBsuX78v e6I6DkrrI2ijACEbKOBzN9 NlRS3uLXAmWiq1IND1HLG0 OJVpTPMyO3JsGN9eTKJfdD PxWOo1d6khoGsrXMWwKSF9 i5hrHYjljuDlXW1acn9qyF w9u5erkpOoUDHiXNIrjOQB UONyG9ZuuLtfJg4jaZe0gN hwLlhzJOM5Kjz9NS3yag71 tgr9sUhnGPXfudjzUcN3GG xfSFSwcbysRLn6CEuqSFFt gLY9QNEovYRqN9YeRIDfEX 6qozy7MQO0CGjdUSZjQgR5 NDBcaGVhZGVyeTcyMFxmb2 11HAY0IgLmKF9pL8Ams8F0 kP4geZWcPTKeeKHqNcMiPM Noks4lbDWaMJkpo7WjUAA5 nfQ0mFJooHRlQZXbLyN1FA clAV0kkq07JPVvHSU9pq5n bGNccGdicmRyaGVhZFxwZ2 ZyPYFxy280CPYwB3BqKVLs t3T6syIvPeUwTYNjxYB4nu D5ADShNZ9svttjb8xvTAac OLrzGVDivlB7spB7EKEudY WaH1QphP7fFNVsPB9kujek g2ijCUL0JQswBQBnLSX2Qm NeYEYep2Tzkrz2ZbPnc9Rf cDSbPRpfW02jp388DCAwmu PwP6rfoOGjcfkdpMLpiyng PQmaalM2ZTMnQFvcplcaMO PpMRllC7kiKdKtRDJlgKwl JYkgg7RoNANpWBRqRaDikN BdVAFcSia4DGPhdOQrNEAt QyZcQ0jfjphsMwQFYGWms7 gtB4gxpLBSlWQdL2MwJTfr nhJzRYfaWVzmQGMeLCS2XM 28FKcrRHLtdc11 CPT Code(s) (test code k4rrpTAnCXNyiEN7EmXxUK = 3357) Bbq8pcz0PyxFSvvCYkVQvu pYAfwrPmix87xFG8hG01VW 6lDWVmBdC0NRDqegB9Oqk3 LILbWDDqeQOfY224z9llu6 cgybZjeAO8zMhzMVBuRSRl YWluXGZzMjAgODgzMDUgWC HoQPI4THKsWsEVLkbuWNC2 CLINICAL HISTORY (test b2oihBSoGTOjrEL1KnTyTG code = 3356) Xuf8ehi9BzxLByrYOoLLrd aYKxdrOdgd14xIA5wO75VE 8jZDAcYpL0JWImdbI1Xgy0 AMDmZNAaeVZwZ867o8clo6 outnWucTH5cZnjVZYiRCOo TUohRFZvQtFmmBNgDZ6lAM Bhcn0= SPECIMEN SOURCE (test l5dqsAOwIOJxeFK7DrIqKP code = 3377) Hxc4wuq3FtiUHvtYXyNRvg qSRvqrBelz69qDV0oM94JQ 4qJKQgRnB1MXNqchN4Uuu3 PPWqWRPudPClA778o4egy9 amteKezRL0dDyzLHRxUOYs JNdsKYIkPbDeSU0iZJelc7 UrwQFlcYdbDIELKdKbU7At xHMmF1mpAHV1 GROSS DESCRIPTION (test e0kbwTQlJERdsPKpCvFhWJ code = 3366) CmDIVwj7ctFDFmlSRsAzAm MzNcZnRuYmpcdWMxXGRlZm Jru6gku548ySXmm0daOQVo WqB5xQYeGGCssZXvZ586w6 tck4adfsQhrTP5CQGvTZQ6 SMatcvTwvtR0ENszuUHpHa X8LBflwcMwQUfwusQljaLv Ctu7XESvY394IPL7dIabl9 ecKHF4ZSUkWBFzOlLjUe4e nSTiI579IVXmNJYLHJBnmV b7JHMqdgCsiiOctAMFk493 D632h0xgUWJwyyMgzFpHop mgv1ugS024JLXwxRRgigKz VzYhCBTylSKpdFT9ZNOgYS 0lfotzGzZwBC3nieweZuCs XU6ckmi5OyEkNM7ppfywYu EfXKbmUCTjnyhiHFEzs2Ln uhlmLZ3mC9Zzw7S9aQ1plM MfPWBvnCFoSeDtRSXxpd0g rBWvWUomd0ArCLS8mpZ4wA ScwPUpQQBnCW88Emikq7Zs WvjmOKM9RWOmxjKrj9Xdq3 okIeWyxlRsW7sfZ8JyXGTw RSGlCPCzTsIrbzCak4Caf6 UpxHLgiOu9c8uhXUAeXHMt iQhls7lbDRO9FNMzD3W8gQ Fru5esQGghALPwkKF0kpib MEllLRTgvxF3rdalPZmkFD PiuAA1fcvmCGzgGYCwZlT0 ldgrLIooUBLwFEP8TAvqs0 41PKP0NHytGgepNVsyNVHa bmNvbnRccGduZGVjXHBsYW luXHBsYWluXGYwXGZzMjRc mMknwZgekS8wQmEgDcWpNI blFI3jBDOkA2hhsXKwNGSs PDImV2koBlTeqG1xpWigFW xmczIwIEEuICBSZWNlaXZl QTZsymDrk8LwNXyotkCoYY MwuSIrGVNrLOKyHNEwLI26 L3IbkcHvWNmoEZLoAVZchZ 1tLN75mWBdixMslxMiAreq y6RmyPKqQkuxcAP7IbXewp SdINA8MN2utPpdntC1nMJg dRMoFyJuT77rwzYiTW6qLB L4ryjrKpW7vPA4kzPqSaXi R74auM5kQ4IgFIDte1IcMA jlCZ2aqL0uXJfviKIeOEMd JFGibNd8DLOpREFiqaHxe6 ApoPc0uXNoYGkmBDSntX6m tN5eYTSxXEZeofydILScSe 0jABOnO1CblmYjKXorTYRu vn0prMauDDftNcNhLBUffP nhZSYilExjmbXdmcSpWF8y ULXeM0Xen7Hrs96lxxWkFe RfFSZsAVLeW8XurQWlAeAu aXMgYSAwLjIgeCAwLjIgeC OoRfBdG59rxLRtVIChztvl aLexp3ZiPJEpPKjwFH71VN doaWNoIGlzIGZpbHRlcmVk FQBbZOJexDUhoTF5XKXeoJ 8xaG69trPktjKBSV6zuNRy KBByfxRTzXnollIVjjj6IN xsZXMsIFBBLCBIVCAoQVND UClccGFyfQ== MICROSCOPIC DESCRIPTION v7zkwGQvPZWcvCL5DzIzZZ (test code = 3371) Wqn0qpb1BulSLwpENeKXhz vEElodHyly95yNM4mI19MJ 1xUVPwOdB3KEMirpK8Dma0 IIWbISFtdROsJ846i8mqf7 mqtmDjyYM3rWhzZJSoVPBx AYgmHFWxKvNeGBAkYf0vwQ VkLlxwYXJ9 SPECIAL STUDIES (test c3qscPZoDZHck9hdYVVajS code = 3376) FuZzEwMzNcZnRuYmpcdWMx IPwzsgVfUIcus1VeN9AtFa AwMFxhbnNpXGRlZmxhbmcx DWNkPHH1egTbKSLcSSyhGV ZtACnkAf8puWRewGboDfPc VTMlv7dvubTHizzbaKs6d3 viWDQrDaY8jBSxOLvcJ6kg syPacCDxF8WgjWZwiCy3d2 ctTrSzRrP9mEHrDTfvT8rs hePjpBMxHHEaZCb0gO13OI YzdU5tgCUeCIjfvgJpAgA3 KDpkBZZhRcC6IONvsVXgVL AlA4hkDTOoEJvqEONwJRhl qCPtZWW1qXqxk9X1fADymT LzpPgtOqMiRbTtCgEZr4Oq BXe0rJxrJ5ZgSMWeJuN8jW QgUGFyYWdyYXBoIEZvbnQ7 dNsbysTrd53jvRApUDTkWJ MdBeJzqDffHFXmJTAFp2Xt fQvyFPF8aAy3gYzzUifsMG G3Ytm5AA9ihi51wbi4gStr SZWtlpczMjB9IPhxCANfwe ynKDu2OAoqFALoyXK8YJLk sKZjX2RrZHJcOE4rmhe5EQ K4GXzqJXPdSnN8YNMwiWPp MVUwpGgaNFrco324FUO4Xz HeHF9cW3Jyo0O2tS2icFAh CLAcmXUdGgCwJNQkxz3ylT WmVQwmw7OhEYL6ylM7cPKf hYImLGPmCU87Ddaqi6WkFz mey7ZoO01vdHZ0INsdj7dg IZ1yDeX8lxHqVWoxn0xokG 1gLjY8LGxkZD9hEA0aYIOr cV7luxpbLIZkYxNtapxeRS XhaOyvlnTkOf3lqPjsGUG7 GFjdH4vtxE4lFlR5BUzkL1 bbmY2nTQk6UGitcYJ4MVQd uQ8xBP0opnkex9elRZauYD coJBYmarX7isQ6GVCunUVj C0DswH1tRAWlKG8schgxs5 jwFQH9FDtuAJXvVVR0DwEf EQWhk1Ehpsp4CzKqf9OlyL GsXFpfV97pi720CHLbiuDb R4dnsPAwvawuaOCftoyxMK rghnZ2JSOyBUOjWUeeCSCt XGZzMjJcbGFuZzEwMzNcaG ljaFxmMVxkYmNoXGYxXGxv N9wdJkKaB7ByHRRaUfWdIF irHJqepAYfmYVuiCK4tM6z SL5pLYHcgKFfF1QwJXUfrq NcnJSfGVQ2zEPqtEOxPE7a WXtazVKvf6bls2YvI1qjuH tixWD5YJ8sVBFePOVzSBic g6UbnF6yNafpqJShajgvZT xmczIyXGxhbmcxMDMzXGhp K1qmFbDrZYIgnMghHUozi2 NoXGYxXGNmMlxmczIyXGx0 cmNoXHBhclxwYXJccGxhaW 9oJdJpHpIjWkixHM0tVXAi N1rxnPRjZLMdKPMxG1gbPx FmaC8aeWpyVAfpNoUhCmCk PnNXb272ln6bPAArnLLbmw JHrKXzoK2dQFenVGzkOLjf dQWyTCmws8xrFONsr0o4vX TgLHGvooEwj0ihZIgkllWg RNPgvSWybPNeVUAyp42eZN kavEvafButLTVig3UinXvr f4PkQaQkPImqs4FuN46hpS JvbCBzbGlkZXMgcnVuIGFs g32av3upZNScVjH5gETsgB I2aDBffZPny9FdsXxsTDUj r1dsZZJuqm2kctlhxLIgd8 XngN9ojztuADrvxXLkouMv NGUyb8k7sJFgTFMfEIFxZN uykEd1YZDoj606xw6rurX7 yQOlIXO6GQfuEVIbXWTzvx UgZXZhbHVhdGVkXHBsYWlu XGYxXGZzMjJcbGFuZzEwMz NcaGljaFxmMVxkYmNoXGYx VCxnZ2rpNlPsU4KeXFUoSj OygOYkS6vadXZaJPJhXExg XGYxXGZzMjJcbGFuZzEwMz NcaGljaFxmMVxkYmNoXGYx NJguM1vmHzCyS2HoQWGuVz IgIFxwbGFpblxmMVxmczIy JBfiazkxUNLjFNlrX6paEg KtYECrvOffUHima2NfVQNj QJOmGpzkmoAbBYv5gyTtXH BhclxwbGFpblxmMVxmczIy YQfyrflfJZWmQYnsK4kmPw QhKPMxhSsiWKqch7GqEKNm XGNmMlxmczIyIEltbXVub2 jkn5KuW0omoJxqfBG7RIXj Q7rsaMBxbXH2ZEB8tV2tIZ foufVjRNJyf2DnEZMxNMRw HfW3jT7wYDI5JdEYbMulIW BsYWluXGYxXGZzMjJcbGFu ZzEwMzNcaGljaFxmMVxkYm IjDBTeBXyqH8glYpUvX0Rd OPGmKcSfvTqsRAtkSIr6Gu xwbGFpblxmMVxmczIyXGxh jearLNKiZEdqI7kxBaBeRQ MnnZptRNnoy8WfNCClZZMq MlxmczIyIHMgTWVkaWNhbC HEZO77FJAbTZTfbGhsaS9c hEEDSWLoeeE5v8W7GTcrAL MtNVs8KYuwnbWaKAHrfL2d IQRrUW7bFVy6hgGcJEWso6 PrCX3fDPKlrOVkHHK0CQTi n3AuB7Xzk2YkYFDbESHluf 6zfwZzKmFOvXLnEIYlov29 KSTrXI8eF5hwYLKxNAChqm AxqLNcn6AhNQRqyGJ4tZRg CB8BZlGDw31bPYWvSEUGhm JvURZabXrvjRA0hgY1hZ8n LiBUaGUgRkRBIGhhcyBkZX Xqjn3wmgAgWVMlBNRoh3Wu sNSpmYDwrzCwD9Ncv4DcDE Gqdd71ZJommHSvzu53FG1y V7Bvh7PsdC8lTCzyZPOmc9 IgwKCsaNLsTDHhl2DqZ7dx sxinJGzlvXPatN9xYSLoWM j8RNJze4YxTJDuq6MdRcIu seYxWXJtWNYjLYPdfV85TS W8dSdvdCrkjoDbPO2iFABh fsEmRDFtTSYvmG5iJYyueu HoBGLhwlZ4c4V3GFhmXOJi klAnPnofSTV3pdBkfaX8rV IiK9kldfwqNDujEOOis0Zt bB7flFJQdKQbd6SicUYerV FMxELbKY7szgFnMC1lRUD1 ODggKENMSUEtODgpIGFzIH E3GKbtIjhmSVY2vaXgJLVd a3DsXSndR2xdV63ziJzntN d1tRUroTroiLPcrUWeFLOk hjL3t6E3WNTkc3XhyvdqUG BsYWluXGYyXGZzMjJcbGFu ZzEwMzNcaGljaFxmMlxkYm DtMAZwHXobX7mnBfPpHoVs IeijLJY9qW== Gross assessment was [facility] performed at ([facility], = 2777) Department of Pathology, [address] [place] [address], Technical component was [facility] performed at ([facility], = 2778) Department of Pathology, [address] [place] [id number], Professional component [facility] was performed at ([facility], code = 2779) Department of Pathology, [address] [place] [address], [facility] [id number] 14:24:00 Test Item Value Reference Range Interpretation Comments Case Report (test code Surgical Pathology = 104) Report Case: [id number] Authorizing Provider: Sarkis Laboy, Collected: 10/01/2020 09:43 AM Ordering Location: [place] [address] ccu Received: 10/01/2020 01:48 PM Pathologist: Pa Peters MD Specimens: A) - Biopsy, Gastric, random biopsy B) - Gastric, gastric erythema biopsy DIAGNOSIS (test code = [id number] 3220) FuZzEwMzNcZnRuYmpcdWMx IHtccnRmMVxlcGljOTIwMl btqfJmMEQqnBQtX1Owulww SCmyWA9wJI2guAhgsUGzhG NvNTUdVaUwh2lgg946dUKv c4luFLZThfoikWw0oQnwD1 5ej1F2EubeK21vfHOzVVux bGFpblxmczIwIEEuIFNUT0 7ML1smWTPTRtIBXSQJLxMX U6ZXDPmBJA1PO01LLUtqJc jLEPDDTAW2PJZhplj5NHCa IXNQNvKLKIllKTQQR8ZGWB dJVEggTUlMRCBDSFJPTklD RBwKZGMQGWWJKYjVB3LZBK KABmKCOsZyZs0GKBbbRA5M FKDBCB2OGJTRYCCYYYiNL3 eZKNTranv2SZDnMKPSGVpL KVqBKG9AW84QAGDJIOVXMC 2GHQQjF1xNF60ICyVRIxTH VElWRSBHQVNUUklUSVMgV0 nJQVSSX3MFQIQST2FOFmqY GEvnUVDjvPPwFC8iJ8OAOS pBZaFLXQBQCbhrK1JEEE7p FsCSIYOCGjIzAf6KPLydUN YXLI0PQVYSIDfGQF8DF4AQ RGEZW4ztPPZqnUAzEW6oYn QBGGJXPtSkVj4MHKMVH1YM SZWIHZOIGeLPKRIKMD4BEL WjpBOqVMEjseDVNgSKQM4Y QUNILCBFUllUSEVNQSwgRU 9XY4KME0NKBxNTOHPDR7ZX WUBKB1TXGOEGHsepCMZhiA WqGL1lO3fEQoEILjUOQBMJ D7BlU3nJZHJSXLpDZMJILr 9MNYGrBZ3EB3GZGbFzI8SX VFJJVElTIEFORCBWRVJZIE KYF0TSFMVYTUuGCBZWPXVv ciAgICAgICAgICAgICAgLS LUTS0VTdEeJHOBUPNNUEAK Y36ASSRRNG3GTIAAPRFRMU JUTFkgREVOVURFRCBXUElU YIBFQMBKKBWhxeb6PDUpET BXQVJUSElOIFNUQVJSWSBT VEFJTiBORUdBVElWRSBGT1 OeRX5gARgCS2VVLUaRK7Ba B4JHWL7TK98VYFWlusg8AW AjFURMTMeMOWfQSIZHZ8Lv UH4DGEDSBV9NGSQRJWIJKD dKS7qDFNAIDSDIDUZGWGSq F5FgL6YNE2tWV82EMRFgpu 62QOY9LkZex5P3BBP4ONOx QHAbn1zrGYOueJVsRxLaAj NcZnRuYmpcdWMxXGRlZmYw y0sbz427hHCbx5jdCEBdFq I6iIYcEITjyXBwQ546EQLl VVpxd8xft0LaGCOdlKKpt9 A2VRRCykiovJp1pRikH50b x0Y1AdjuX4rzRPKvRGAbI1 CfFE7oQLDtIak6HSB1BSK0 OJVcGVQcG4NhOZ4kHHWbhL NnKYd5v5htcResBRZgSKC8 t2zlYIlwdlPnTR0ity8afG i1c0yrswSqUVRtMYCobPCE COVeK4FajAvsJm2alMq6iF qbAipiFTM0Vge9SL3bqr90 xou2sQduKUMnvlifHhC4AJ ghUATzcpulXRl2WRybWMQv rZC0RBGqkFIdP7ExXWQtYB 2ahti7WCH3VFpqQYRiYpO0 NDBcaGVhZGVyeTcyMFxmb2 88MGO4PjLrOU5xO5Lki7Y9 fM8jlIFtPQNgdZVoZlPuKN Jxti6vjOZdJBeig1ToKSP7 uoN1iYWnyVKwZEQzNtO3TQ cnGR1yxs52MHHxQOX4eb7y bGNccGdicmRyaGVhZFxwZ2 HsJMWsh745MNPtK7HdWJKp d4V4joQlVeTqIUWelPV8sj T7FGUmHJ6sjnhbx6vaFCyw VWggOIOevxH0ffR9ABQsyY TyF8EcxM2vVMMdOS6bzspp r4rgBRU0DHbuAVElRMY3Ag TqLKMlx3Qatnj0RjFpf0Nk oFLaXIknH07rp437TKFlkc TcF0oerKJxpkebeTMlwfta RNrhqnR5LCYhBEavpekbZH LlGYtpA6pfCsTlUATdtChy OZmhs7QeDSCwZPWtLzFqtF XxKANzDry0GJGpqDInLRRi QvWpI8idtiovTxQMHKNbg2 qoT9htzMKDxJBoL9BnIYua gnTuAQqwBPhcPOXyAOM0OX 21TUrpUNDrko82 CPT Code(s) (test code a4mhgNXcJZCriYB6ZvGvBQ = 3357) Pmu4xif2FytVYwaVBpRYqz gEOsucXvzw08yEC6mM72HJ 1lBDQjVmZ0GTWtscP6Ykk0 CEXdJSVnlGBtJ447q9hdf7 sterDquVP6gUzpVLZcDSWk YWluXGZzMjAgODgzMDUgWC ApXMT7IWKgIkBNFwziRJL7 CLINICAL HISTORY (test q9zjqFFtLYUycOQ4HbOuPZ code = 3356) Hgr2rfq6VoaFAxvBJdNKxm kATjekAynt24iRQ1aK08LP 0kKPHsOtZ2XGYnorM7Rip0 ALOrGLUdnYJwH189s2pwd0 awijGmsDF3oNqjHKQpVFHc FEzoIESuWuIxjMBtSG4pCA Bhcn0= SPECIMEN SOURCE (test j7avwAAfHSKdoKI4EaIuHK code = 3377) Yax1rrq7LhyEDqmBKiOOax hLGegkTezf08aEF0wF01DU 3tEXKrLrK7LENjgpJ3Qoh5 OSKiXZUwaZEvM701u8bsr2 zgdhCviOX9dIjqYTLhDJEk YCzkAHHzYnAdHO0aMDtlk7 ZbmHMaqXlsIEJTVbDtE2Aw eUYnC9iaDHE0 GROSS DESCRIPTION (test u3wykMRkEERirJRhFqMuCK code = 3366) EpKLPql5phAHAtxGGpMvAw MzNcZnRuYmpcdWMxXGRlZm Nxm7dxp155wISnw2qyATXl WvJ0qZZvVEPicPZtU144r3 wyc4poueVcpYM9SOKcOVI9 WYklmfAgajR9GYxrhHQgJp X3WQbkogEyDMrbzqVzisWz Eec5TBWeT192QJW0qIfnq2 dcLIY8LFPyAKPhJdDeAl0n cHQpL890PUFgDMNOLOGdrP y5HEMrreVlkoTkcBPLs768 Y298p9orWGEuawVbrZdJuq zxf3pkD972ADGqdPZfjeLn OqNrFBPvsCUxpBN6SXGvQN 3akystBtJfQE4pzjthGzAc KU7gugw5RxWyTK1bcitsQu KiKDnnHCXpjwnnQJWzf0Ao jpkuWV0hH7Uru4L5mD6qeB HaYHUttOEfVjPmGUIxcx3a vNPiHGdvk8HhIYI1giS2nL VtySYbMYLlLS45Lukuw4Jm UopmYLW8CYFpaiLfz3Tqi3 kuLzVimrFzP4mtT9XrJQYc NYDdLTPnThWnbvPpf7Nzs5 LztUCjmRp0r0weFYJsWJOd oJeex4gbTUB9OGSiH2H8zO Lcm5yfUVrrSROymGX2hnxw OTodRZZsrkV3cvgkHIiuFB GktJV7duzxNPswADAbRmP8 clmrPQyuBWToSHJ9AFhju6 94BOO6QWihWfnnGQzhTKJv bmNvbnRccGduZGVjXHBsYW luXHBsYWluXGYwXGZzMjRc wJnvbMeabQ7cOjFjAdFdCO ciHE8yHCAeJ7qcuGWyBRNs HTXiM9csDuKudO4axYqvUJ xmczIwIEEuICBSZWNlaXZl VAEoawEnx9OzCCgjtuXtVM FyvFDrYBYuYIAxTJIaVX58 Q7OewgVpHTvsKVCaSRMpyJ 5xZB52dNFkwrZjdnDpOiyj m1QupBRxHusbuMQ6RhFtvw NnIFX1BD0kwTapfcF8xNMg sPOpEqSdG67aegDcHR8jJJ G1glqrDsO2pWW3zvInMyRu F40wfT6uM0NcYTYyq6VzXB hmDL1nzG0xPMkshQKhUMWz HMJvoKu1ASWrGTUuwwGbu8 PjbGk9pRKnDFtzLQWrqP7j wV7yZGHsHVSnkkjkLHEgOl 2fHEReS2PrlxZfQQowKZRl br6xmKxeJJnqPoQiFTTapS msGJVgoYvigiZcucTlRO2c LQRxS5Gus0Xgo83agiGeCy GeUJRgAXHcO9BfyAVuCuBu aXMgYSAwLjIgeCAwLjIgeC QmMeCrB40sxRDxPMQfmoyi kLlrq5UqISSkREwiGR40DM doaWNoIGlzIGZpbHRlcmVk OMZlRLRirKYgdWB5KSJefC 5wmL88kqMzcdVRHU1dxLJk TRJxncAGfMndneMBddl9FC xsZXMsIFBBLCBIVCAoQVND UClccGFyfQ== MICROSCOPIC DESCRIPTION o3unfYGlREMlnVC7UyGhUZ (test code = 3371) Uic7zoe8VnfQSzyNUtSQbb sFVdguRdrj27jRF8oB75PC 2zDFMgVjU8BWOgguE1Ohn1 QXSwMZPpzMEcE954k1htw8 hobiPhaQX8eVzvLCHnXULl RTjgLYRqZnRiJIIsXb4fiY VkLlxwYXJ9 SPECIAL STUDIES (test s3kdrOXkCQYfp5mbHRCzxU code = 3376) FuZzEwMzNcZnRuYmpcdWMx FRojdiQoPWrqa0IeX6FrYn AwMFxhbnNpXGRlZmxhbmcx TFNwHJN7usVcJMLqQAxsWR VqUMpvIm2qdXDwsYesWsKg SALgy5nfcoJGfqnpyZj4l6 heCXJlLfA9uLEmPRbnR2kj fhJgzVAfS4IteZZzuMw0i3 fvSpUsGhR9rTGyOZfcF6gc uaYrtOOxNEVuQUk0xO97QH XsfF9veFBfCSgxyxPmOqV3 BSdgKLLhOkB8EFMfuCNlMF WaZ2dsUNOgQBzsCATiRMye xFAwFQE2qYnzj6B3yGZuqO LozNurSrIwFeJaEgXYv6Oa UQr6nCquG7GdQQUpBmV6uI QgUGFyYWdyYXBoIEZvbnQ7 wAdxqmOmr92vqWVtXFVzQY QsBxUeoVtaYHVeHZBEl6Nw iEsmOSZ8jIs3lIfpNlvfFI U0Wza8YZ1moo72zck4nLfp KXCecjaqWeK1IAqeDJOmfi slGBp2MEofIEDgwXX1DQNp gSOeE3FoYZWrPK4ftzo8HA R5XUogZFVqFzK9KRIwoYMf EZGuuUogGQhlj006VDO5Aw EnPX1oE2Dno2C8eY0zpVLt VPPmuOFdJcFmHSDbzv6blH JoHIxwl8DvPUB4klA1vDLv uGWaPTEgTZ36Xvkfr5QeBv eyx4DmS68kxFF4XZqvt0kb XY6sFdF5sxPpHCgzr9strG 2xQjZ7FEjqKH2dNT8qHUFn hE1cwccaXIGrCwJgkikbMO ZwvZdqsoVqTd4xuXeoDTK0 QNvdL7zwbA3mDmC0DZtjE9 cvuW2uMXb2NWqteUK1SNEk mZ9vVI2brokki3lkQQfyRJ xcAHFefdX8hwM6PCYmbXYk K9UkuW9uMTOrEF2trhttv2 gdKJN7ZXhqNFKwIWR8CdTv LRLkg1Eoyze6KnJnz5UcrK HwTGplH81qk423TQUqpyAo P2svgPVjasnhtWHfrptbMH woqzD9YBYxIFBkBTtmZINw XGZzMjJcbGFuZzEwMzNcaG ljaFxmMVxkYmNoXGYxXGxv D4ciRxCxY7LtDYNmGfJuSP boGNbleWZleREynQE6fJ2g AZ0qTZEhkJPzM3YjCTBxwf EkhHLzOYG5vDFndUPnKO8f TGmrvVJlt5ajr6ErQ8ijfS ytnSU2EE5zPZJwAYAlHYgd p3KqmK5zXydddJDoeclhGM xmczIyXGxhbmcxMDMzXGhp O0czRtLqWSGjuWubKUuoi9 NoXGYxXGNmMlxmczIyXGx0 cmNoXHBhclxwYXJccGxhaW 4yKgAmGcYaQdruKF2kCVRd K8ajeTTvUQJpVWKbI0yoYj MiyD3kwRofBQjhAoGpAmCi HxKQk635ow4jINItaUBprp AInDEcrO0aLRgrEAiaJOfk pZApEXcjh9gxIBJnp8z1rA EqDVRvtmFfp0ybRFxmeqOk MKJczMHtiOVcTOMnx94qOV kqjNugwSluTNXqe5LlxGhb j8FmKuZdTSqff4CjI36kvL JvbCBzbGlkZXMgcnVuIGFs n59vj7ewMWNoOyR9fZQrvX N3xMZxpIVid8KatXmeLMCb b7wsVAWpda9ytdkocHGto3 RitV9gbdqcNGdtrVBvkdOw LEWay2q0vINnRXTdMSMeRN sfeRc7OFHgh672yx5hvtQ0 wUPlFAG3EImjRLZvLHVrdz UgZXZhbHVhdGVkXHBsYWlu XGYxXGZzMjJcbGFuZzEwMz NcaGljaFxmMVxkYmNoXGYx QYtmH0bmAqOcH4WmWMLtAj QotFPwQ2gbsONmDSGbZBka XGYxXGZzMjJcbGFuZzEwMz NcaGljaFxmMVxkYmNoXGYx RKmxH3jtNbHyM1GqERTuXl IgIFxwbGFpblxmMVxmczIy LAjamcrxPVFlAChjZ5txQj CyHVQurJokTUuqf9UjSIEn EKEjTupqboMaXMs1trYhDP BhclxwbGFpblxmMVxmczIy CNmfnxppBCLtOPryK8zwMz IsXCCowEiwNIspn9FfKJPa XGNmMlxmczIyIEltbXVub2 diu2LnF0hfuTzakER7VQCg K3xkhMJaqGY8ZJQ6rM5vOI zsymUeDZLox3BvRNVbHGRr TtF2eA4fTOY2ZmUFgLfpME BsYWluXGYxXGZzMjJcbGFu ZzEwMzNcaGljaFxmMVxkYm LmFDFzVLzqN5hfKaKyY4Is FINcAoLaoQhdSMkiCNr8Wr xwbGFpblxmMVxmczIyXGxh xddgGXSeUKjbN2fmCwIiWO DggIkyATrmi0FwLXZyIDWc MlxmczIyIHMgTWVkaWNhbC CFII40GXXcOIItnKpzyT5l zNOESEOwvuD9w7U3KBdvNA XwSUg1UIdwpwVvFAVwaP8i NMFpZW3xQAh7irExPWFyx9 XeVA9vUMUwdTLhZBB2KVZb j3CqL7Ikm9CyFHKeUZZfvr 8eekDsNqYIbCUhTEIbsp53 WKUtQG7kT1jkRFSxLXZcqe TfcWCyg9JmVHJylXK3mDJv NM2NNtQKd97iUOUwAXRZhp ToUROliImlpAB4esJ1rH3w LiBUaGUgRkRBIGhhcyBkZX Pnmv6jtkSvVIPeDKYvs3Lq nVFwdECplwCdG9Ayb5MaMO Kfqk86SYytgAPftp38KG6k F2Tmi5UyjV5eRSgsQTFux6 CcyBUvgLMsDMMck9GxB5nw seegBAqzaUNqwC4mXUAlJB b0CVVmb3NbOVJzp9SrQaNy hpDgMLEgTMKmKUEsxW59OZ A9sMswhHwghbJcCR6bNPMd ynKqFSMkICIsrN8bZHvnvv GsEPCecrV6x8Q3KWojRXJo hhJqTopbKXS6idXmkcL0xF OeH1ishmckCNylESIyj0Hj jO1ktPCEkDPjj6BpjKIhbS IRiCAjVY7dipDjYJ3cIRC4 ODggKENMSUEtODgpIGFzIH H1RDzlCfegDAE9wgIjIRKg m4ErFBvkC5ceP75ysDfgrM u8jUHqkDlymRXbhJCnAJHs bjJ2q1Y6VELlh0FjzpxlRZ BsYWluXGYyXGZzMjJcbGFu ZzEwMzNcaGljaFxmMlxkYm WxLVSbNDogS8mjPdFbSfVp OivxFNF8qQ== Gross assessment was [facility] performed at ([facility], = 2777) Department of Pathology, [address] [place] [address], Technical component was [facility] performed at ([facility], = 2778) Department of Pathology, [address] [place] [address], Professional component [facility] was performed at ([facility], code = 2779) Department of Pathology, [address] [place] [address], [facility] [id number] 14:24:00Surgical Pathology Report Case: [id number] Authorizing Provider: Sarkis Laboy, Collected: 10/01/2020 09:43 AM OrderingLocation: [place] [address] ccu Received: 10/01/2020 01:48 PM Pathologist: Pa [...] OR CARCINOMA Signing Pathologist Direct Phone Line: [phone] signed by Pa Peters MD on 10/02/2020 at 2:24 [id number] X 2, [id number]. GastricB. GastricA. Received in formalin labeled the [...] evaluated Immunohistochemistry technical testing was performed at [facility], Pathology Laboratory where it was developed and [...] qualified to perform high complexity clinical laboratory testing.[facility], Department of Pathology, [address] [place] [address], [facility], [facility] of [facility]ology, [address] [place] [address], [place] [address], [facility], Department of Pathology, [address] [place] [address], [place] [address], JNZS-GLUCOSE [id number] 11:33:00 Test Item Value Reference Range Interpretation Comments POC-GLUCOSE METER 124 mg/dL 70-110 H : TESTED A T [facility] 6720 (BEAKER) (test code = [facility] Rojelio [facility], 1538) [address]: Top Stitcher/Techni min ID = [id number] for Jaswinder Jefferson POCT-GLUCOSE [id number] 08:15:00 Test Item Value Reference Range Interpretation Comments POC-GLUCOSE METER 106 mg/dL 70-110 : TESTED A T [facility] 6720 (BEAKER) (test code = [facility] Rojelio [facility], 1538) [address]: Top Stitcher/Techni min ID = [id number] for Jaswinder Jefferson Comprehensive metabolic [id number] 05:17:00 Test Item Value Reference Range Interpretation Comments Protein, Total (test 6.1 See_Comment [Autom ated code = 2885-2) message] The system which generated this result transmit altagracia reference range : 6.0 - 8.3 gm/dL . The reference range was not u sed to interpret th is result as normal/abnormal . Albumin (test code = 2.6 g/dL 3.5-5 L 50450-5) Alkaline Phosphatase 85 U/L 40-150 (test code [...] (test code = 7.7 mg/dL 8.4-10.2 L 93498-1) AST (test code = 17 U/L 5-34 0-8) ALT (test code = 9 U/L 6-55 1742-6) EGFR (test code = 35 mL/min/1.73 [place] [address]-8) NOT ACCURATE CREATININE CLEARANCE IN PREDICTING GLOMERULAR FILTRATION RATE . ESTIMATED GFR I S NOT APPLICABLE FOR DIALYSIS PATIEN TSRhys ELIANA (test code = ELIANA) Top Stitcher ID - EDASI Lab Interpretation Abnormal (test code = 31844-0) [facility] [id number] 05:17:00 Test Item Value Reference Range Interpretation Comments Protein, Total (test 6.1 See_Comment [Autom ated code = 2885-2) message] The system which generated this result transmit altagracia reference range : 6.0 - 8.3 gm/dL . The reference range was not u sed to interpret th is result as normal/abnormal . Albumin (test code = 2.6 g/dL 3.5-5 L 67530-8) Alkaline Phosphatase 85 U/L 40-150 (test code [...] (test code = 7.7 mg/dL 8.4-10.2 L 12618-1) AST (test code = 17 U/L 5-34 0-8) ALT (test code = 9 U/L 6-55 1742-6) EGFR (test code = 35 mL/min/1.73 [place] [address]-0) NOT ACCURATE CREATININE CLEARANCE IN PREDICTING GLOMERULAR FILTRATION RATE . ESTIMATED GFR I S NOT APPLICABLE FOR DIALYSIS PATIEN TS. ELIANA (test code = ELIANA) Top Stitcher ID - EDASI Lab Interpretation Abnormal (test code = 46152-7) [facility] [id number] 05:17:00 Test Item Value Reference Range Interpretation Comments Protein, Total (test 6.1 See_Comment [Autom ated code = 2885-2) message] The system which generated this result transmit altagracia reference range : 6.0 - 8.3 gm/dL . The reference range was not u sed to interpret th is result as normal/abnormal . Albumin (test code = 2.6 g/dL 3.5-5 L 07463-5) Alkaline Phosphatase 85 U/L 40-150 (test code [...] (test code = 7.7 mg/dL 8.4-10.2 L 87349-2) AST (test code = 17 U/L 5-34 1920-8) ALT (test code = 9 U/L 6-55 1742-6) EGFR (test code = 35 mL/min/1.73 [place] [address]-2) NOT ACCURATE CREATININE CLEARANCE IN PREDICTING GLOMERULAR FILTRATION RATE . ESTIMATED GFR I S NOT APPLICABLE FOR DIALYSIS PATIEN TS. ELIANA (test code = ELIANA) Top Stitcher ID - EDASI Lab Interpretation Abnormal (test code = 62899-2) [facility] [id number] 05:17:00 Test Item Value Reference Range Interpretation Comments Protein, Total (test 6.1 See_Comment [Autom ated code = 2885-2) message] The system which generated this result transmit altagracia reference range : 6.0 - 8.3 gm/dL . The reference range was not u sed to interpret th is result as normal/abnormal . Albumin (test code = 2.6 g/dL 3.5-5 L 22202-8) Alkaline Phosphatase 85 U/L 40-150 (test code [...] (test code = 7.7 mg/dL 8.4-10.2 L 62963-7) AST (test code = 17 U/L 5-34 1920-8) ALT (test code = 9 U/L 6-55 1742-6) EGFR (test code = 35 mL/min/1.73 [place] [address]-3) NOT ACCURATE CREATININE CLEARANCE IN PREDICTING GLOMERULAR FILTRATION RATE . ESTIMATED GFR I S NOT APPLICABLE FOR DIALYSIS PATIEN TS. ELIANA (test code = ELIANA) Top Stitcher ID - EDASI Lab Interpretation Abnormal (test code = 71309-3) [facility] [id number] 05:17:00 Test Item Value Reference Range Interpretation Comments Protein, Total (test 6.1 See_Comment [Autom ated code = 2885-2) message] The system which generated this result transmit altagracia reference range : 6.0 - 8.3 gm/dL . The reference range was not u sed to interpret th is result as normal/abnormal . Albumin (test code = 2.6 g/dL 3.5-5 L 09488-8) Alkaline Phosphatase 85 U/L 40-150 (test code [...] (test code = 7.7 mg/dL 8.4-10.2 L 03518-5) AST (test code = 17 U/L 5-34 1920-8) ALT (test code = 9 U/L 6-55 1742-6) EGFR (test code = 35 mL/min/1.73 [place] [address]-1) NOT ACCURATE CREATININE CLEARANCE IN PREDICTING GLOMERULAR FILTRATION RATE . ESTIMATED GFR I S NOT APPLICABLE FOR DIALYSIS PATIEN ELIANA (test code = ELIANA) Top Stitcher ID - EDASI Lab Interpretation Abnormal (test code = 51826-7) [facility] [id number] 05:17:00 Test Item Value Reference Range Interpretation Comments Protein, Total (test 6.1 See_Comment [Autom ated code = 2885-2) message] The system which generated this result transmit altagracia reference range : 6.0 - 8.3 gm/dL . The reference range was not u sed to interpret th is result as normal/abnormal . Albumin (test code = 2.6 g/dL 3.5-5 L 44168-1) Alkaline Phosphatase 85 U/L 40-150 (test code [...] (test code = 7.7 mg/dL 8.4-10.2 L 97190-2) AST (test code = 17 U/L 5-34 1920-8) ALT (test code = 9 U/L 6-55 1742-6) EGFR (test code = 35 mL/min/1.73 [place] [address]-6) NOT ACCURATE CREATININE CLEARANCE IN PREDICTING GLOMERULAR FILTRATION RATE . ESTIMATED GFR I S NOT APPLICABLE FOR DIALYSIS PATIEN TS. ELIANA (test code = ELIANA) Top Stitcher ID - EDASI Lab Interpretation Abnormal (test code = 76580-0) [facility] [id number] 05:17:00 Test Item Value Reference Range Interpretation Comments Protein, Total (test 6.1 See_Comment [Autom ated code = 2885-2) message] The system which generated this result transmit altagracia reference range : 6.0 - 8.3 gm/dL . The reference range was not u sed to interpret th is result as normal/abnormal . Albumin (test code = 2.6 g/dL 3.5-5.0 L 75543-3) Alkaline Phosphatase 85 U/L 40-150 (test code [...] (test code = 7.7 mg/dL 8.4-10.2 L 67562-5) AST (test code = 17 U/L 5-34 1920-8) ALT (test code = 9 U/L 6-55 1742-6) EGFR (test code = 35 mL/min/1.73 [place] [address]-8) NOT ACCURATE CREATININE CLEARANCE IN PREDICTING GLOMERULAR FILTRATION RATE . ESTIMATED GFR I S NOT APPLICABLE FOR DIALYSIS PATIEN TS. MONROY (test code = ELIANA) Top Stitcher ID - EDASI Lab Interpretation Abnormal (test code = 61851-4) [facility] [id number] 05:17:00 Test Item Value Reference Range Interpretation [...] S NOT APPLICABLE FOR DIALYSIS PATIEN TS. Top Stitcher ID - EDASICBC W/PLT COUNT & AUTO [id number] 04:32:00 Test Item Value Reference Range Interpretation [...] PERCENT (BEAKER) (test code = 2801) POCT-GLUCOSE [id number] 21:36:00 Test Item Value Reference Range Interpretation Comments POC-GLUCOSE METER 146 mg/dL 70-110 H : TESTED A T [facility] 6720 (BEAKER) (test code = [facility], 1538) [address]: Top Stitcher/Techni min ID = [id number] for Johana Vasquez Hemoglobin [id number] 15:28:00 Test Item Value Reference Range Interpretation Comments Hemoglobin A1C (test code = 4548-4) 5.6 % 4.3-6.1 Lab Interpretation (test code = Normal 51792-3) [facility] [id number] 15:28:00 Test Item Value Reference Range Interpretation Comments Hemoglobin A1C (test code = 4548-4) 5.6 % 4.3-6.1 Lab Interpretation (test code = Normal 69306-5) [facility] [id number] 15:28:00 Test Item Value Reference Range Interpretation Comments Hemoglobin A1C (test code = 4548-4) 5.6 % 4.3-6.1 Lab Interpretation (test code = Normal 15742-2) [facility] [id number] 15:28:00 Test Item Value Reference Range Interpretation Comments Hemoglobin A1C (test code = 4548-4) 5.6 % 4.3-6.1 Lab Interpretation (test code = Normal 55808-5) [facility] [id number] 15:28:00 Test Item Value Reference Range Interpretation Comments Hemoglobin A1C (test code = 4548-4) 5.6 % 4.3-6.1 Lab Interpretation (test code = Normal 18185-7) [facility] [id number] 15:28:00 Test Item Value Reference Range Interpretation Comments Hemoglobin A1C (test code = 4548-4) 5.6 % 4.3-6.1 Lab Interpretation (test code = Normal 46912-8) [facility] [id number] 15:28:00 Test Item Value Reference Range Interpretation Comments Hemoglobin A1C (test code = 4548-4) 5.6 % 4.3-6.1 Lab Interpretation (test code = Normal 53800-4) [facility] [id number] 15:28:00 Test Item Value Reference Range Interpretation Comments HEMOGLOBIN A1C (BEAKER) (test code = 5.6 % 4.3-6.1 368) CBC W/PLT COUNT & AUTO [id number] 12:44:00 Test Item Value Reference Range Interpretation [...] PERCENT (BEAKER) (test code = 2801) POCT-GLUCOSE [id number] 11:11:00 Test Item Value Reference Range Interpretation Comments POC-GLUCOSE METER 125 mg/dL 70-110 H : TESTED A T [facility] 6720 (BEAKER) (test code = DEVON Serrato [facility], 1538) 784[address]: Top Stitcher/Techni min ID = [id number] for BE NEL VARGASAUJOHANNE Vancomycin level, [id number] 10:39:00 Test Item Value Reference Range Interpretation Comments Vancomycin Rm (test 4.8 ug/mL code = 65239-0) ELIANA (test code = Reference Range: No ELIANA) NormalsOperator ID - [facility], [id number] 10:39:00 Test Item Value Reference Range Interpretation Comments Vancomycin Rm (test 4.8 ug/mL code = 03932-1) ELIANA (test code = Reference Range: No ELIANA) NormalsOperator ID - [facility], [id number] 10:39:00 Test Item Value Reference Range Interpretation Comments Vancomycin Rm (test 4.8 ug/mL code = 63531-5) ELIANA (test code = Reference Range: No ELIANA) NormalsOperator ID - Jul [facility], [id number] 10:39:00 Test Item Value Reference Range Interpretation Comments Vancomycin Rm (test 4.8 ug/mL code = 45034-7) ELIANA (test code = Reference Range: No ELIANA) NormalsOperator ID [facility], [id number] 10:39:00 Test Item Value Reference Range Interpretation Comments Vancomycin Rm (test 4.8 ug/mL code = 42538-9) ELIANA (test code = Reference Range: No ELIANA) NormalsOperator ID [facility], [id number] 10:39:00 Test Item Value Reference Range Interpretation Comments Vancomycin Rm (test 4.8 ug/mL code = 93696-1) ELIANA (test code = Reference Range: No ELIANA) NormalsOperator [facility], [id number] 10:39:00 Test Item Value Reference Range Interpretation Comments Vancomycin Rm (test 4.8 ug/mL code = 88810-9) ELIANA (test code = Reference Range: No ELIANA) NormalsOperator [facility], [id number] 10:39:00 Test Item Value Reference Range Interpretation Comments VANCOMYCIN RANDOM (BEAKER) (test 4.8 ug/mL code = 523) Reference Range: No NormalsOperator [facility] CPOCT-GLUCOSE [id number] 08:38:00 Test Item Value Reference Range Interpretation Comments POC-GLUCOSE METER 119 mg/dL 70-110 H : TESTED A T [facility] 6720 (BEAKER) (test code = [place], 1538) [address]: Top Stitcher/Techni min ID = [id number] for BARBARA FRIEDMAN SARS-CoV2/RT-PCR (Asymptomatic ONLY)2020-10-01 08:13:00 Test Item Value Reference Range Interpretation Comments SARS-COV2/RT-PCR Negative Not Detected, (test code = Negative, See 35792-3) external report for linked test SARS-COV-2 [facility] PERFORMING LAB (test code = 19106-6) ELIANA (test code = Negative result for [...] of the Act. Fact Sheet for Healthcare Providers:https://www.iAcademic/sites/default/f dorys/product/documents/F act_Sheet_HC_Providers_L rvd_DTEH-PeR-3.pdf Fact Sheet for Healthcare Patients:https://www.TextHog/sites/default/fi les/product/documents/Fa ct_Sheet_Patients_Lyra_S ARS-CoV-2.pdf Performing Laboratory:[facility] [place] [address] [facility]2020-10-01 08:13:00 Test Item Value Reference Range Interpretation Comments SARS-COV2/RT-PCR Negative Not Detected, (test code = Negative, See 51656-5) external report for linked test SARS-COV-2 [facility] PERFORM[facility] (test code = 06297-1) ELIANA (test code = Negative result for [...] of the Act. Fact Sheet for Healthcare Providers:https://www.S[employer]el [employer] idel.com/sites/default/f dorys/product/documents/F act_Sheet_HC_Providers_L jvr_BOEG-LwO-6.pdf Fact Sheet for Healthcare Patients:https://www.james del.com/sites/default/fi les/product/documents/Fa ct_Sheet_Patients_Lyra_S ARS-CoV-2.pdf Performing Laboratory:[facility] [place] [address] [facility] (Asymptomatic ONLY)2020-10-01 08:13:00 Test Item Value Reference Range Interpretation Comments SARS-COV2/RT-PCR Negative Not Detected, (test code = Negative, See 66492-8) external report for linked test SARS-COV-2 [facility] PERFORMING [facility] (test code = 69801-2) ELIANA (test code = Negative result for [...] of the Act. Fact Sheet for Healthcare Providers:https://www.[employer]el [employer] idePanopto.Platypi/sites/default/f dorys/product/documents/F act_Sheet_HC_Providers_L kwn_NIBX-WdJ-7.pdf Fact Sheet for Healthcare Patients:https://www.gauzz.Platypi/sites/default/fi les/product/documents/Fa ct_Sheet_Patients_Lyra_S ARS-CoV-2.pdf Performing Laboratory:[facility] [place] [address] [facility] (Asymptomatic ONLY)2020-10-01 08:13:00 Test Item Value Reference Range Interpretation Comments SARS-COV2/RT-PCR Negative Not Detected, (test code = Negative, See 49380-2) external report for linked test SARS-COV-2 [facility] PERFORMING LAB (test code = 20775-9) ELIANA (test code = Negative result for [...] of the Act. Fact Sheet for Healthcare Providers:https://www.PVPower.Platypi/sites/default/f dorys/product/documents/F act_Sheet_HC_Providers_L kfb_IAJZ-LfI-1.pdf Fact Sheet for Healthcare Patients:https://www.james del.com/sites/default/fi les/product/documents/Fa ct_Sheet_Patients_Ly_S ARS-CoV-2.pdf Performing Laboratory:[facility] [place] [address] [facility] (Asymptomatic ONLY)2020-10-01 08:13:00 Test Item Value Reference Range Interpretation Comments SARS-COV2/RT-PCR Negative Not Detected, (test code = Negative, See 97670-8) external report for linked test SARS-COV-2 [facility] PERFORMING [facility] (test code = 74006-6) ELIANA (test code = Negative result for [...] of the Act. Fact Sheet for Healthcare Providers:https://www.PVPower.Platypi/sites/default/f dorys/product/documents/F act_Sheet_HC_Providers_L mhi_XMIQ-UkQ-2.pdf Fact Sheet for Healthcare Patients:https://www.gauzz.Platypi/sites/default/fi les/product/documents/Fa ct_Sheet_Patients_Ly_S ARS-CoV-2.pdf Performing Laboratory:[facility] [place] [address] [facility] (Asymptomatic ONLY)2020-10-01 08:13:00 Test Item Value Reference Range Interpretation Comments SARS-COV2/RT-PCR Negative Not Detected, (test code = Negative, See 26311-2) external report for linked test SARS-COV-2 [facility] PERFORM[facility] (test code = 87258-2) ELIANA (test code = Negative result for [...] of the Act. Fact Sheet for Healthcare Providers:https://www.iAcademic/sites/default/f dorys/product/documents/F act_Sheet_HC_Providers_L sbd_TCPS-QkX-6.pdf Fact Sheet for Healthcare Patients:https://www.TextHog/sites/default/fi les/product/documents/Fa ct_Sheet_Patients_Lyra_S ARS-CoV-2.pdf Performing Laboratory:[facility] [place] [address] [facility] (Asymptomatic ONLY)2020-10-01 08:13:00 Test Item Value Reference Range Interpretation Comments SARS-COV2/RT-PCR Negative Not Detected, (test code = Negative, See 83805-7) external report for linked test SARS-COV-2 [facility] PERFORM[facility] (test code = 87262-5) ELIANA (test code = Negative result for [...] of the Act. Fact Sheet for Healthcare Providers:https://www.iAcademic/sites/default/f dorys/product/documents/F act_Sheet_HC_Providers_L yld_KJNG-ZkH-7.pdf Fact Sheet for Healthcare Patients:https://www.TextHog/sites/default/fi les/product/documents/Fa ct_Sheet_Patients_Lyra_S ARS-CoV-2.pdf Performing Laboratory:[facility] [place] [address] [facility] ([facility])2020-10-01 08:13:00 Test Item Value Reference Range Interpretation Comments SARS-COV2/RT-PCR (test Negative Not Detected, Negative, code = 1868949) See external report for linked test SARS-COV-2 PERFORMING LAB [facility] [place] (test code = 2232970) Negative result for this test determines that [...] 564(g) of the Act.Fact Sheet for Healthcare Providers:https://www.LaZure Scientific.Platypi/sites/default/files/product/documents/Fact_Shee i_YJ_Xytzuhgqe_Codv_XBBW-DtE-0.pdfFact Sheet for Healthcare Patients:https://www.Sayah/sites/default/files/product/ documents/Qyam_Toacb_Zpmtzbsn_Rcqc_CQOY-PfS-1.pdfPerforming Laboratory:[facility], [place] [id number] 06:20:00 Test Item Value Reference Range Interpretation Comments Ferritin (test code = 61.09 ng/mL 5-275 2276-4) ELIANA (test code = ELIANA) Top Stitcher ID - PIAYA L Lab Interpretation (test Normal code = 66369-0) [facility] [id number] 06:20:00 Test Item Value Reference Range Interpretation Comments Vitamin B12 (test 267 pg/mL 213-816 code = 2132-9) Folate (test code = 11.30 ng/mL See_Comment [Automa altagracia 2284-8) message] The system which generated this result transmit altagracia reference range : >=7.00. The reference range was not used to interpret this result as normal/abnormal . ELIANA (test code = ELIANA) Top Stitcher ID - PIAYA L Lab Interpretation Normal (test code = 82742-8) [facility] 06:20:00 Test Item Value Reference Range Interpretation Comments Ferritin (test code = 61.09 ng/mL 5-275 2276-4) ELIANA (test code = ELIANA) Top Stitcher ID - PIAYA L Lab Interpretation (test Normal code = 65234-7) [facility] and [id number] 06:20:00 Test Item Value Reference Range Interpretation Comments Vitamin B12 (test 267 pg/mL 213-816 code = 2132-9) Folate (test code = 11.30 ng/mL See_Comment [Automa altagracia 2284-8) message] The system which generated this result transmit altagracia reference range : >=7.00. The reference range was not used to interpret this result as normal/abnormal . ELIANA (test code = ELIANA) Top Stitcher ID - PIAYA L Lab Interpretation Normal (test code = 52447-1) [facility] 06:20:00 Test Item Value Reference Range Interpretation Comments Ferritin (test code = 61.09 ng/mL 5-275 2276-4) ELIANA (test code = ELIANA) Top Stitcher ID - PIAYA L Lab Interpretation (test Normal code = 86257-5) [facility] and [id number] 06:20:00 Test Item Value Reference Range Interpretation Comments Vitamin B12 (test 267 pg/mL 213-816 code = 2132-9) Folate (test code = 11.30 ng/mL See_Comment [Automa altagracia 2284-8) message] The system which generated this result transmit altagracia reference range : >=7.00. The reference range was not used to interpret this result as normal/abnormal . ELIANA (test code = ELIANA) Top Stitcher ID - PIAYA L Lab Interpretation Normal (test code = 35512-9) [facility] 06:20:00 Test Item Value Reference Range Interpretation Comments Ferritin (test code = 61.09 ng/mL 5-275 2276-4) ELIANA (test code = ELIANA) Top Stitcher ID - PIAYA L Lab Interpretation (test Normal code = 22029-3) [facility] [id number] 06:20:00 Test Item Value Reference Range Interpretation Comments Vitamin B12 (test 267 pg/mL 213-816 code = 2132-9) Folate (test code = 11.30 ng/mL See_Comment [Automa altagracia 2284-8) message] The system which generated this result transmit altagracia reference range : >=7.00. The reference range was not used to interpret this result as normal/abnormal . ELIANA (test code = ELIANA) Top Stitcher ID - PIAYA L Lab Interpretation Normal (test code = 29843-4) [facility] 06:20:00 Test Item Value Reference Range Interpretation Comments Ferritin (test code = 61.09 ng/mL 5-275 2276-4) ELIANA (test code = ELIANA) Top Stitcher ID - PIAYA L Lab Interpretation (test Normal code = 60449-4) [facility] and [id number] 06:20:00 Test Item Value Reference Range Interpretation Comments Vitamin B12 (test 267 pg/mL 213-816 code = 2132-9) Folate (test code = 11.30 ng/mL See_Comment [Automa altagracia 2284-8) message] The system which generated this result transmit altagracia reference range : >=7.00. The reference range was not used to interpret this result as normal/abnormal . ELIANA (test code = ELIANA) Top Stitcher ID - PIAYA L Lab Interpretation Normal (test code = 71900-8) [facility] 06:20:00 Test Item Value Reference Range Interpretation Comments Ferritin (test code = 61.09 ng/mL 5-275 2276-4) ELIANA (test code = ELIANA) Top Stitcher ID - PIAYA L Lab Interpretation (test Normal code = 50298-0) [facility] and [id number] 06:20:00 Test Item Value Reference Range Interpretation Comments Vitamin B12 (test 267 pg/mL 213-816 code = 2132-9) Folate (test code = 11.30 ng/mL See_Comment [Automa altagracia 2284-8) message] The system which generated this result transmit altagracia reference range : >=7.00. The reference range was not used to interpret this result as normal/abnormal . ELIANA (test code = ELIANA) Top Stitcher ID - PIAYA L Lab Interpretation Normal (test code = 87309-1) [facility] 06:20:00 Test Item Value Reference Range Interpretation Comments Ferritin (test code = 61.09 ng/mL 5.00-275.00 2276-4) ELIANA (test code = ELIANA) Top Stitcher ID - PIAYA L Lab Interpretation (test Normal code = 26651-4) [facility] and [id number] 06:20:00 Test Item Value Reference Range Interpretation Comments Vitamin B12 (test 267 pg/mL 213-816 code = 2132-9) Folate (test code = 11.30 ng/mL See_Comment [Automa altagracia 2284-8) message] The system which generated this result transmit altagracia reference range : >=7.00. The reference range was not used to interpret this result as normal/abnormal . ELIANA (test code = ELIANA) Top Stitcher ID - ASHLEIGH Barb Lab Interpretation Normal (test code = 29434-6) [facility]ERR[facility]IN[facility] 06:20:00 Test Item Value Reference Range Interpretation Comments FERRITIN (BEAKER) (test code = 61.09 ng/mL 5.00-275.00 361) Top Stitcher ID - ASHLEIGH LVITAMIN B12 AND [id number] 06:20:00 Test Item Value Reference Range Interpretation Comments VITAMIN B12 267 pg/mL 213-816 (BEAKER) (test code = 774) FOLATE (BEAKER) 11.30 ng/mL See_Comment [Automated message] (test code = 362) The system which generated this result transmitted ref erence range: >=7.00. The reference range was not used to interpr et this result as normal/abnormal . Top Stitcher ID - ASHLEIGH George, TIBC, % sat. (without ferritin)2020-10-01 06:04:00 Test Item Value Reference Range Interpretation Comments Iron (test code = 2498-4) 17.0 ug/dL 40-160 L TIBC (test code = 2500-7) 323 ug/dL 250-450 Iron % Saturation (test 5 % 20-55 L code = 2502-3) ELIANA (test code = ELIANA) Top Stitcher ID - ASHLEIGH Barb Lab Interpretation (test Abnormal code = 07849-8) [facility], TIBC, % sat. (without ferritin)2020-10-01 06:04:00 Test Item Value Reference Range Interpretation Comments Iron (test code = 2498-4) 17.0 ug/dL 40-160 L TIBC (test code = 2500-7) 323 ug/dL 250-450 Iron % Saturation (test 5 % 20-55 L code = 2502-3) ELIANA (test code = ELIANA) Top Stitcher ID - PIAYA L Lab Interpretation (test Abnormal code = 25568-7) [facility], TIBC, % sat. (without ferritin)2020-10-01 06:04:00 Test Item Value Reference Range Interpretation Comments Iron (test code = 2498-4) 17.0 ug/dL 40-160 L TIBC (test code = 2500-7) 323 ug/dL 250-450 Iron % Saturation (test 5 % 20-55 L code = 2502-3) ELIANA (test code = ELIANA) Top Stitcher ID - PIAYA L Lab Interpretation (test Abnormal code = 04579-0) [facility], TIBC, % sat. (without ferritin)2020-10-01 06:04:00 Test Item Value Reference Range Interpretation Comments Iron (test code = 2498-4) 17.0 ug/dL 40-160 L TIBC (test code = 2500-7) 323 ug/dL 250-450 Iron % Saturation (test 5 % 20-55 L code = 2502-3) ELIANA (test code = ELIANA) Top Stitcher ID - PIAYA L Lab Interpretation (test Abnormal code = 52381-8) [facility], TIBC, % sat. (without ferritin)2020-10-01 06:04:00 Test Item Value Reference Range Interpretation Comments Iron (test code = 2498-4) 17.0 ug/dL 40-160 L TIBC (test code = 2500-7) 323 ug/dL 250-450 Iron % Saturation (test 5 % 20-55 L code = 2502-3) ELIANA (test code = ELIANA) Top Stitcher ID - PIAYA L Lab Interpretation (test Abnormal code = 66226-6) [facility], TIBC, % sat. (without ferritin)2020-10-01 06:04:00 Test Item Value Reference Range Interpretation Comments Iron (test code = 2498-4) 17.0 ug/dL 40-160 L TIBC (test code = 2500-7) 323 ug/dL 250-450 Iron % Saturation (test 5 % 20-55 L code = 2502-3) ELIANA (test code = ELIANA) Top Stitcher ID - PIAYA L Lab Interpretation (test Abnormal code = 19256-2) [facility], TIBC, % sat. (without ferritin)2020-10-01 06:04:00 Test Item Value Reference Range Interpretation Comments Iron (test code = 2498-4) 17.0 ug/dL 40.0-160.0 L TIBC (test code = 2500-7) 323 ug/dL 250-450 Iron % Saturation (test 5 % 20-55 L code = 2502-3) ELIANA (test code = ELIANA) Top Stitcher ID - ASHLEIGH L Lab Interpretation (test Abnormal code = 52767-7) [facility]. (WITHOUT FERRITIN)2020-10-01 06:04:00 Test Item Value Reference Range Interpretation Comments IRON (BEAKER) (test code = 547) 17.0 ug/dL 40.0-160.0 L TOTAL IRON BINDING CAPACITY 323 ug/dL 250-450 (BEAKER) (test code = 769) IRON % SATURATION (2) (BEAKER) 5 % 20-55 L (test code = 2590) Top Stitcher ID - ASHLEIGH LPOCT-GLUCOSE [id number] 05:23:00 Test Item Value Reference Range Interpretation Comments POC-GLUCOSE METER 116 mg/dL 70-110 H : [facility] (BEAKER) (test code [facility], = 1538) [address]: Top Stitcher/Techni min ID = [id number] for ELIDALela YESSENIA JUNIE CBC W/PLT COUNT & AUTO [id number] 03:26:00 Test Item Value Reference Range Interpretation [...] (BEAKER) (test code = 2801) COMPREHENSIVE METABOLIC [id number] 03:22:00 Test Item Value Reference Range Interpretation [...] S NOT APPLICABLE FOR DIALYSIS PATIEN TS. Top Stitcher ID - DBCBC W/PLT COUNT & AUTO [id number] 20:14:00 Test Item Value Reference Range Interpretation [...] PERCENT (BEAKER) (test code = 2801) POCT-GLUCOSE [id number] 20:12:00 Test Item Value Reference Range Interpretation Comments POC-GLUCOSE METER 134 mg/dL 70-110 H : TESTED A T [facility] 6720 (BEAKER) (test code [facility], = 1538) [address]: Top Stitcher/Techni min ID = [id number] for JUNIE ALICIA CBC (HEMOGRAM ONLY)2020-09-30 15:28:00 [...] 0-0 (BEAKER) (test code = 413) POCT-GLUCOSE [id number] 14:32:00 Test Item Value Reference Range Interpretation Comments POC-GLUCOSE METER 106 mg/dL 70-110 : TESTED A T [facility] [address] (BEAKER) (test code = [place], 1538) [address]: Top Stitcher/Techni min ID = [id number] for CHUY SWANN HEMOGLOBIN [id number] 11:57:00 Test Item Value Reference Range Interpretation Comments HEMOGLOBIN A1C (BEAKER) (test code = 5.6 % 4.3-6.1 368) U/S, ABDOMINAL, [id number] 11:53:00Abdomen limited area? Add comment if clarification is needed.->Right upper quadrantReason for exam:->liver cirrhosis; [facility] : 1950 Sex: [...] MDReport Verified Date/Time: 09/30/2020 11:53:08 US abdomen [id number] 11:53:00Interface, External Ris In - 09/30/2020 11:55 [...] signedby: CAITY HERNADEZ MD on 09/30/2020 11:53 [facility] [id number] 11:53:00Interface, External Ris In - 09/30/2020 11:55 [...] signedby: CAITY HERNADEZ MD on 09/30/2020 11:53 [facility] [id number] 11:53:00Interface, External Ris In - 09/30/2020 11:55 [...] signedby: CAITY HERNADEZ MD on 09/30/2020 11:53 [facility] [id number] 11:53:00Interface, External Ris In - 09/30/2020 11:55 [...] signedby: CAITY HERNADEZ MD on 09/30/2020 11:53 [facility] [id number] 11:53:00Interface, External Ris In - 09/30/2020 11:55 [...] chronic medical renal disease. Signed: Caity Hernadez MDRepcol[facility] Verified Date/Time: 09/30/2020 11:53:08 Electronically signedby: CAITY HERNADEZ MD on 09/30/2020 11:53 [facility] [id number] 11:53:00Interface, External Ris In - 09/30/2020 11:55 [...] signedby: CAITY HERNADEZ MD on 09/30/2020 11:53 [facility]Microscopic + Reflex to [id number] 10:53:00 Test Item Value Reference Range Interpretation Comments Color, UA (test code Light Yellow = 5778-6) Clarity, UA (test Clear code = 5767-9) Specific [place], UA 1.014 1.001-1.035 (test code = 5811-5) pH, UA (test code = 6.0 5.0-8.0 5803-2) Protein, UA (test 200 mg/dL Negative A code = 44443-4) Glucose, UA (test 50 mg/dL Negative A code = 365) Ketones, UA (test Negative Negative code = 2514-8) Bilirubin, UA (test Negative Negative code = 00570-7) Blood, UA (test code Small Negative A = 13036-9) Nitrite, UA (test Negative Negative code = 5802-4) Leukocytes, UA (test Negative Negative code = 5799-2) Urobilinogen, UA 0.2 mg/dL 0.2-1 (test code = 47930-8) RBC, UA (test code = 1 See_Comment [Autom ated 33377-3) message] The system which generated this result [...] . Bacteria, UA (test Few code = 17862-2) Mucus (test code = Few 8247-9) Squam Epithel, UA 1 See_Comment [Automate d (test code = 78598-6) messag e] The system which generated this result transmit altagracia reference range : /HPF. The reference range was not used to interpret this result as normal/abnormal . Hyaline Casts, UA 6 See_Comment [Automate d (test code = 36156-2) messag e] The system which generated this result transmit altagracia reference range : /LPF. The reference range was not used to interpret this result as normal/abnormal . Specimen Source (test code = 2795) ELIANA (test code = ELIANA) Top Stitcher ID - [auto]Top Stitcher ID - tech Lab Interpretation Abnormal (test code = 66937-5) [facility]/Microscopic + Reflex to Culture 2020-09-30 10:53:00 Test Item Value Reference Range Interpretation Comments Color, UA (test code Light Yellow = 5778-6) Clarity, UA (test Clear code = 5767-9) Specific [place], UA 1.014 1.001-1.035 (test code = 5811-5) pH, UA (test code = 6.0 5.0-8.0 5803-2) Protein, UA (test 200 mg/dL Negative A code = 94698-7) Glucose, UA (test 50 mg/dL Negative A code = 365) Ketones, UA (test Negative Negative code = 2514-8) Bilirubin, UA (test Negative Negative code = 94400-5) Blood, UA (test code Small Negative A = 33290-0) Nitrite, UA (test Negative Negative code = 5802-4) Leukocytes, UA (test Negative Negative code = 5799-2) Urobilinogen, UA 0.2 mg/dL 0.2-1 (test code = 30117-9) RBC, UA (test code = 1 See_Comment [Autom ated 16799-2) message] The system which generated this result [...] . Bacteria, UA (test Few code = 14165-4) Mucus (test code = Few 8247-9) Squam Epithel, UA 1 See_Comment [Automate d (test code = 67831-8) messag e] The system which generated this result transmit altagracia reference range : /HPF. The reference range was not used to interpret this result as normal/abnormal . Hyaline Casts, UA 6 See_Comment [Automate d (test code = 33774-6) messag e] The system which generated this result transmit altagracia reference range : /LPF. The reference range was not used to interpret this result as normal/abnormal . Specimen Source (test code = 2795) ELIANA (test code = ELIANA) Top Stitcher ID - [auto]Top Stitcher ID - tech Lab Interpretation Abnormal (test code = 12802-4) [facility] + Reflex to Culture 2020-09-30 10:53:00 Test Item Value Reference Range Interpretation Comments Color, UA (test code Light Yellow = 5778-6) Clarity, UA (test Clear code = 5767-9) Specific [place], UA 1.014 1.001-1.035 (test code = 5811-5) pH, UA (test code = 6.0 5.0-8.0 5803-2) Protein, UA (test 200 mg/dL Negative A code = 92391-0) Glucose, UA (test 50 mg/dL Negative A code = 365) Ketones, UA (test Negative Negative code = 2514-8) Bilirubin, UA (test Negative Negative code = 86526-4) Blood, UA (test code Small Negative A = 93759-4) Nitrite, UA (test Negative Negative code = 5802-4) Leukocytes, UA (test Negative Negative code = 5799-2) Urobilinogen, UA 0.2 mg/dL 0.2-1 (test code = 08858-1) RBC, UA (test code = 1 See_Comment [Autom ated 08995-1) message] The system which generated this result [...] . Bacteria, UA (test Few code = 85909-0) Mucus (test code = Few 8247-9) Squam Epithel, UA 1 See_Comment [Automate d (test code = 77598-1) messag e] The system which generated this result transmit altagracia reference range : /HPF. The reference range was not used to interpret this result as normal/abnormal . Hyaline Casts, UA 6 See_Comment [Automate d (test code = 26146-0) messag e] The system which generated this result transmit altagracia reference range : /LPF. The reference range was not used to interpret this result as normal/abnormal . Specimen Source (test code = 2795) ELIANA (test code = ELIANA) Top Stitcher ID - [auto]Top Stitcher ID - tech Lab Interpretation Abnormal (test code = 50769-2) [facility] w/Microscopic + Reflex to Culture 2020-09-30 10:53:00 Test Item Value Reference Range Interpretation Comments Color, UA (test code Light Yellow = 5778-6) Clarity, UA (test Clear code = 5767-9) Specific [place], UA 1.014 1.001-1.035 (test code = 5811-5) pH, UA (test code = 6.0 5.0-8.0 5803-2) Protein, UA (test 200 mg/dL Negative A code = 66143-6) Glucose, UA (test 50 mg/dL Negative A code = 365) Ketones, UA (test Negative Negative code = 2514-8) Bilirubin, UA (test Negative Negative code = 72703-9) Blood, UA (test code Small Negative A = 99596-6) Nitrite, UA (test Negative Negative code = 5802-4) Leukocytes, UA (test Negative Negative code = 5799-2) Urobilinogen, UA 0.2 mg/dL 0.2-1 (test code = 04122-0) RBC, UA (test code = 1 See_Comment [Autom ated 20748-4) message] The system which generated this result [...] . Bacteria, UA (test Few code = 63270-8) Mucus (test code = Few 8247-9) Squam Epithel, UA 1 See_Comment [Automate d (test code = 61679-6) messag e] The system which generated this result transmit altagracia reference range : /HPF. The reference range was not used to interpret this result as normal/abnormal . Hyaline Casts, UA 6 See_Comment [Automate d (test code = 77104-7) messag e] The system which generated this result transmit altagracia reference range : /LPF. The reference range was not used to interpret this result as normal/abnormal . Specimen Source (test code = 2795) ELIANA (test code = ELIANA) Top Stitcher ID - [auto]Top Stitcher ID - tech Lab Interpretation Abnormal (test code = 48041-6) [facility] Culture 2020-09-30 10:53:00 Test Item Value Reference Range Interpretation Comments Color, UA (test code Light Yellow = 5778-6) Clarity, UA (test Clear code = 5767-9) Specific [place], UA 1.014 1.001-1.035 (test code = 5811-5) pH, UA (test code = 6.0 5.0-8.0 5803-2) Protein, UA (test 200 mg/dL Negative A code = 72696-0) Glucose, UA (test 50 mg/dL Negative A code = 365) Ketones, UA (test Negative Negative code = 2514-8) Bilirubin, UA (test Negative Negative code = 87998-0) Blood, UA (test code Small Negative A = 57436-3) Nitrite, UA (test Negative Negative code = 5802-4) Leukocytes, UA (test Negative Negative code = 5799-2) Urobilinogen, UA 0.2 mg/dL 0.2-1 (test code = 14696-3) RBC, UA (test code = 1 See_Comment [Autom ated 88427-3) message] The system which generated this result [...] . Bacteria, UA (test Few code = 02940-8) Mucus (test code = Few 8247-9) Squam Epithel, UA 1 See_Comment [Automate d (test code = 09510-3) messag e] The system which generated this result transmit altagracia reference range : /HPF. The reference range was not used to interpret this result as normal/abnormal . Hyaline Casts, UA 6 See_Comment [Automate d (test code = 01141-7) messag e] The system which generated this result transmit altagracia reference range : /LPF. The reference range was not used to interpret this result as normal/abnormal . Specimen Source (test code = 2795) ELIANA (test code = ELIANA) Top Stitcher ID - [auto]Top Stitcher ID - tech Lab Interpretation Abnormal (test code = 17283-1) [facility]lex [facility] Culture 2020-09-30 10:53:00 Test Item Value Reference Range Interpretation Comments Color, UA (test code Light Yellow = 5778-6) Clarity, UA (test Clear code = 5767-9) Specific [place], UA 1.014 1.001-1.035 (test code = 5811-5) pH, UA (test code = 6.0 5.0-8.0 5803-2) Protein, UA (test 200 mg/dL Negative A code = 29853-8) Glucose, UA (test 50 mg/dL Negative A code = 365) Ketones, UA (test Negative Negative code = 2514-8) Bilirubin, UA (test Negative Negative code = 77188-3) Blood, UA (test code Small Negative A = 27726-7) Nitrite, UA (test Negative Negative code = 5802-4) Leukocytes, UA (test Negative Negative code = 5799-2) Urobilinogen, UA 0.2 mg/dL 0.2-1 (test code = 00791-4) RBC, UA (test code = 1 See_Comment [Autom ated 44835-1) message] The system which generated this result [...] . Bacteria, UA (test Few code = 00272-9) Mucus (test code = Few 8247-9) Squam Epithel, UA 1 See_Comment [Automate d (test code = 56411-8) messag e] The system which generated this result transmit altagracia reference range : /HPF. The reference range was not used to interpret this result as normal/abnormal . Hyaline Casts, UA 6 See_Comment [Automate d (test code = 27670-1) messag e] The system which generated this result transmit altagracia reference range : /LPF. The reference range was not used to interpret this result as normal/abnormal . Specimen Source (test code = 2795) ELIANA (test code = ELIANA) Top Stitcher ID - [auto]Top Stitcher ID - tech Lab Interpretation Abnormal (test code = 20318-3) [facility] Reflex [facility] Culture 2020-09-30 10:53:00 Test Item Value Reference Range Interpretation Comments Color, UA (test code Light Yellow = 5778-6) Clarity, UA (test Clear code = 5767-9) Specific [place], UA 1.014 1.001-1.035 (test code = 5811-5) pH, UA (test code = 6.0 5.0-8.0 5803-2) Protein, UA (test 200 mg/dL Negative A code = 40922-1) Glucose, UA (test 50 mg/dL Negative A code = 365) Ketones, UA (test Negative Negative code = 2514-8) Bilirubin, UA (test Negative Negative code = 48080-5) Blood, UA (test code Small Negative A = 88788-6) Nitrite, UA (test Negative Negative code = 5802-4) Leukocytes, UA (test Negative Negative code = 5799-2) Urobilinogen, UA 0.2 mg/dL 0.2-1.0 (test code = 26169-7) RBC, UA (test code = 1 See_Comment [Autom ated 46552-9) message] The system which generated this result [...] . Bacteria, UA (test Few code = 47479-2) Mucus (test code = Few 8247-9) Squam Epithel, UA 1 See_Comment [Automate d (test code = 17380-2) messag e] The system which generated this result transmit altagracia reference range : /HPF. The reference range was not used to interpret this result as normal/abnormal . Hyaline Casts, UA 6 See_Comment [Automate d (test code = 76009-1) messag e] The system which generated this result transmit altagracia reference range : /LPF. The reference range was not used to interpret this result as normal/abnormal . Specimen Source (test code = 2795) ELIANA (test code = ELIANA) Top Stitcher ID - [auto]Top Stitcher ID - tech Lab Interpretation Abnormal (test code = 42543-6) [facility] URINE [id number] 10:53:00 Test Item Value Reference Range Interpretation [...] code = 514) SOURCE(BEAKER) (test code = 9741) Top Stitcher ID - [auto]Top Stitcher ID - techLactic acid, [id number] 10:00:00 Test Item Value Reference Range Interpretation Comments Lactate, Venous (test code 1.08 mmol/L 0.5-2.2 = 2872) ELIANA (test code = ELIANA) Top Stitcher ID - PIAYA L Lab Interpretation (test Normal code = 15087-5) [facility], [id number] 10:00:00 Test Item Value Reference Range Interpretation Comments Lactate, Venous (test code 1.08 mmol/L 0.5-2.2 = 2872) ELIANA (test code = ELIANA) Top Stitcher ID - PIAYA L Lab Interpretation (test Normal code = 39208-8) [facility], [id number] 10:00:00 Test Item Value Reference Range Interpretation Comments Lactate, Venous (test code 1.08 mmol/L 0.5-2.2 = 2872) ELIANA (test code = ELIANA) Top Stitcher ID - PIAYA L Lab Interpretation (test Normal code = 95470-2) [facility], [id number] 10:00:00 Test Item Value Reference Range Interpretation Comments Lactate, Venous (test code 1.08 mmol/L 0.5-2.2 = 2872) ELIANA (test code = ELIANA) Top Stitcher ID - PIAYA L Lab Interpretation (test Normal code = 30238-5) [facility], [id number] 10:00:00 Test Item Value Reference Range Interpretation Comments Lactate, Venous (test code 1.08 mmol/L 0.5-2.2 = 2872) ELIANA (test code = ELIANA) Top Stitcher ID - PIAYA L Lab Interpretation (test Normal code = 77538-0) [facility], [id number] 10:00:00 Test Item Value Reference Range Interpretation Comments Lactate, Venous (test code 1.08 mmol/L 0.5-2.2 = 2872) ELIANA (test code = ELIANA) Top Stitcher ID - PIAYA L Lab Interpretation (test Normal code = 90121-9) [facility], [id number] 10:00:00 Test Item Value Reference Range Interpretation Comments Lactate, Venous (test code 1.08 mmol/L 0.50-2.20 = 2872) ELIANA (test code = ELIANA) Top Stitcher ID - PIAYA L Lab Interpretation (test Normal code = 81924-7) [facility] ACID, [id number] 10:00:00 Test Item Value Reference Range Interpretation Comments LACTATE BLOOD VENOUS (2) (BEAKER) 1.08 mmol/L 0.50-2.20 (test code = 2872) Top Stitcher ID - PIAYA LCBC W/PLT COUNT & AUTO [id number] 09:53:00 Test Item Value Reference Range Interpretation [...] = 2801) RAD, CHEST, 1 VIEW, NON [id number] 09:06:00Reason for exam:->? [facility] 1950 Sex: MFINAL [...] Room XR chest 1 view portable / [id number] 09:06:00Interface, External Ris In - 09/30/2020 9:24 AM CDTFINAL REPORT INDICATION: ? sob COMPARISON: None TECHNIQUE: Single frontal view of the chest. FINDINGS: Lungs and pleura: Clearlungs. No effusion.Heart and mediastinum: Normal heart size. Unremarkable mediastinal contours.Osseous structures: No acute abnormality.Other: None. IMPRESSION: No acute intrathoracic abnormality. Sign ed: Nahed Cleary Verified Date/Time: 09/30/2020 09:06:18 Reading Location: [facility] / [id number] 09:06:00Interface, External Ris In - 09/30/2020 9:24 AM CDTFINAL REPORT INDICATION: ? sob COMPARISON: None TECHNIQUE: Single frontal view of the chest. FINDINGS: Lungs and pleura: Clearlungs. No effusion.Heart and mediastinum: Normal heart size. Unremarkable mediastinal contours.Osseous structures: No acute abnormality.Other: None. IMPRESSION: No acute intrathoracic abnormality. Sign ed: Nahed Cleary Verified Date/Time: 09/30/2020 09:06:18 Reading Location: [facility] / [id number] 09:06:00Interface, External Ris In - 09/30/2020 9:24 AM CDTFINAL REPORT INDICATION: ? sob COMPARISON: None TECHNIQUE: Single frontal view of the chest. FINDINGS: Lungs and pleura: Clearlungs. No effusion.Heart and mediastinum: Normal heart size. Unremarkable mediastinal contours.Osseous structures: No acute abnormality.Other: None. IMPRESSION: No acute intrathoracic abnormality. Sign ed: Nahed Cleary Verified Date/Time: 09/30/2020 09:06:18 Reading Location: [facility] / [id number] 09:06:00Interface, External Ris In - 09/30/2020 9:24 AM CDTFINAL REPORT INDICATION: ? sob COMPARISON: None TECHNIQUE: Single frontal view of the chest. FINDINGS: Lungs and pleura: Clearlungs. No effusion.Heart and mediastinum: Normal heart size. Unremarkable mediastinal contours.Osseous structures: No acute abnormality.Other: None. IMPRESSION: No acute intrathoracic abnormality. Sign ed: Nahed Cleary Verified Date/Time: 09/30/2020 09:06:18 Reading Location: [facility] / [id number] 09:06:00Interface, External Ris In - 09/30/2020 9:24 AM CDTFINAL REPORT INDICATION: ? sob COMPARISON: None TECHNIQUE: Single frontal view of the chest. FINDINGS: Lungs and pleura: Clearlungs. No effusion.Heart and mediastinum: Normal heart size. Unremarkable mediastinal contours.Osseous structures: No acute abnormality.Other: None. IMPRESSION: No acute intrathoracic abnormality. Sign ed: Nahed Cleary Verified Date/Time: 09/30/2020 09:06:18 Reading Location: [facility]iology [facility] / [id number] 09:06:00Interface, External Ris In - 09/30/2020 9:24 AM CDTFINAL REPORT INDICATION: ? sob COMPARISON: None TECHNIQUE: Single frontal view of the chest. FINDINGS: Lungs and pleura: Clearlungs. No effusion.Heart and mediastinum: Normal heart size. Unremarkable mediastinal contours.Osseous structures: No acute abnormality.Other: None. IMPRESSION: No acute intrathoracic abnormality. Sign ed: Nahed Cleary Verified Date/Time: 09/30/2020 09:06:18 Reading Location: [facility] Radiology Reading Room [facility] COMPREHENSIVE METABOLIC [id number] 07:47:00 Test Item Value Reference Range Interpretation [...] S NOT APPLICABLE FOR DIALYSIS PATIEN TS. Top Stitcher ID - [id number] 07:07:00 Test Item Value Reference Range Interpretation Comments PTT (test code = 79391-7) 25.1 See_Comment [ Automated message] The system Inbilin generated this result transmitted ref erence range: 22.5 - 3 6.0 seconds. The re ference range was not u sed to interpret this result as normal/abnor mal. Lab Interpretation (test Normal code = 54843-7) [facility] 07:07:00 Test Item Value Reference Range Interpretation Comments PTT (test code = 97400-8) 25.1 See_Comment [ Automated message] The system Inbilin generated this result transmitted ref erence range: 22.5 - 3 6.0 seconds. The re ference range was not u sed to interpret this result as normal/abnor mal. Lab Interpretation (test Normal code = 26420-1) [facility] 07:07:00 Test Item Value Reference Range Interpretation Comments PTT (test code = 64733-9) 25.1 See_Comment [ Automated message] The system Inbilin generated this result transmitted ref erence range: 22.5 - 3 6.0 seconds. The re ference range was not u sed to interpret this result as normal/abnor mal. Lab Interpretation (test Normal code = 58678-0) [place] [id number] 07:07:00 Test Item Value Reference Range Interpretation Comments PTT (test code = 36549-2) 25.1 See_Comment [ Automated message] The system Inbilin generated this result transmitted ref erence range: 22.5 - 3 6.0 seconds. The re ference range was not u sed to interpret this result as normal/abnor mal. Lab Interpretation (test Normal code = 87576-2) [place] [id number] 07:07:00 Test Item Value Reference Range Interpretation Comments PTT (test code = 98006-5) 25.1 See_Comment [ Automated message] The system Inbilin generated this result transmitted ref erence range: 22.5 - 3 6.0 seconds. The re ference range was not u sed to interpret this result as normal/abnor mal. Lab Interpretation (test Normal code = 33023-0) [facility] Test Item Value Reference Range Interpretation Comments PTT (test code = 84082-4) 25.1 See_Comment [ Automated message] The system Inbilin generated this result transmitted ref erence range: 22.5 - 3 6.0 seconds. The re ference range was not u sed to interpret this result as normal/abnor mal. Lab Interpretation (test Normal code = 87606-8) [facility] 07:07[facility]00 Test Item Value Reference Range Interpretation Comments PTT (test code = 24236-3) 25.1 See_Comment [ Automated message] The system Inbilin generated this result transmitted ref erence range: 22.5 - 3 6.0 seconds. The re ference range was not u sed to interpret this result as normal/abnor mal. Lab Interpretation (test Normal code = 17857-7) [place] [id number] 07:07:00 Test Item Value Reference Range Interpretation Comments PARTIAL THROMBOPLASTIN TIME 25.1 seconds 22.5-36.0 (BEAKER) (test code = 760) PROTHROMBIN TIME/[id number] 07:07:00 Test Item Value Reference Range Interpretation Comments PROTIME (WENDI) 14.2 seconds 11.9-14.2 (test code = 759) INR (WENDI) (test 1.13 See_Comment [Automat ed message] code = 370) The system Inbilin generated this result transmitted ref erence range: <=5.90. The reference range was not used to int erpret this result as normal/abnormal . Effective 12/11/2018: PT Reference Range ChangeNew: 11.9-14.2 Previous: 11.7- 14.7RECOMMENDED COUMADIN/WARFARIN INR THERAPY RANGESSTANDARD DOSE: 2.0-3.0 Includes: PROPHYLAXIS for venous thrombosis, systemic embolization; TREATMENT for venous thrombosis and/or pulmonary embolus.HIGH RISK: Target INR is2.5-3.5 for patients wiht mechanical heart valves.POCT-GLUCOSE [id number] 06:39:00 Test Item Value Reference Range Interpretation Comments POC-GLUCOSE METER 150 mg/dL 70-110 H : TESTED A T [facility] 6720 (WENDI) (test code [facility], = 1538) [address]: Top Stitcher/Techni min ID = [id number] for JUNIE ALICIA [id number] 00:00:00Ordered by an unspecified provider.[facility]-[id number] 00:00:00Ordered by an unspecified provider. [facility]-[id number] 00:00:00Ordered by an unspecified provider.[facility]-[id number] 00:00:00 Ordered by an unspecified provider.[facility]-SCANNED 2020-09-30 00:00:00Ordered by an unspecified provider.[facility]EKG-[id number] 00:00:00Ordered by an unspecified provider.[facility])2020-01-26 13:29:00 Test Item Value Reference Range Interpretation Comments SARS-COV2/RT-PCR (test code = Negative Not Detected, Negative 0645603) SARS-COV-2 PERFORMING LAB [facility] (test code = 7449051) Negative result for this test determines that [...] 564(g) of the Act.Fact Sheet for Healthcare Providers:https://www.[employer]idel.com/sites/default/files/product/documents/Fact_Shee p_PC_Afnyhlbty_Mmkj_MBDZ-WdQ-4.pdfFact Sheet for Healthcare Patients:https://www.[employer]idel.com/sites/default/files/product/ documents/Nlxq_Gsrcl_Envnewaj_Srnx_ZGGZ-HmV-1.pdfPerforming Laboratory:[facility] [place] [address]
[2021-03-28 15:58] LABS: Arterial Blood Carboxyhemoglob 1.5 % (0-1.5); Blood Gas Oxyhemoglobin 87.5 % (94-97); Blood O2 Saturation 89.7 % (92-98.5)
[2021-03-28 16:05] LABS: Absolute Lymphocytes (CBC) 0.8 K/uL (0.7-4.9); Basophils % 0.4 % (0-1.3); Hematocrit 29.2 % (39.6-49.0); Lymphocytes % 6.6 % (15.3-44.8); MPV 8.8 fL (7.6-11.3); RBC Red Blood Cell Count 3.32 M/uL (4.33-5.43)
[2021-03-28 16:15] LABS: Protime INR 1.07
--- NOTE | 2021-03-28 16:21 | RAD REPORT ---
EXAM DESCRIPTION: RAD - Chest Single View - 03/28/2021 3:52 pm CLINICAL HISTORY: SOB COMPARISON: Portable March 21 TECHNIQUE: AP portable chest image was obtained 03/28/2021 3:52 pm . FINDINGS: Patient has extensive baseline interstitial fibrotic change. Interstitial and alveolar opa cities are present in each lung base in the lateral mid lung field. Pattern is similar to slightly wo rse than seen March 21. Bilateral pneumonia including COVID-19 pneumonia would be primary consider ations. Cardiac silhouette is prominent. No vascular engorgement. No pneumothorax seen. No large pleural eff usions. IMPRESSION: Bilateral pneumonia pattern similar or slightly worse than seen on March 21.
[2021-03-28] MEDS ORDERED: NA CHLORIDE 0.9% 500 ML ONE (17:07)
[2021-03-28 18:22] LABS: Blood Morphology Comment NOT SEEN (NOT SEEN); Platelet Estimate DECR; White Blood Cell Scan OK (OK)
[2021-03-28 18:33] LABS: SARS-COV-2 RT PCR POSITIVE (NEGATIVE)
[2021-03-28 18:55] LABS: ALT/SGPT 21 U/L (12-78); AST/SGOT 37 U/L (15-37); Albumin 2.1 g/dL (3.4-5.0); Alkaline Phosphatase 128 U/L (45-117); BUN Blood Urea Nitrogen 42 mg/dL (7-18); Bicarbonate 21 mmol/L (21-32); Bilirubin Direct 0.4 mg/dL (0-0.2); Bilirubin Total 0.8 mg/dL (0.2-1.0); Glucose Level 86 mg/dL (74-106); Lipase 69 U/L (73-393); Sodium Level 139 mmol/L (136-145); Troponin (Emerg Dept Use Only) < 0.02 ng/mL (0.0-0.045)
[2021-03-28] MEDS ORDERED: MORPHINE 2 MG/ML SYR ONE (19:12)
--- NOTE | 2021-03-28 19:36 | ER ---
Nurse's Notes [facility] Name: Amaury Matamoros Age: 70 yrs Sex: Male : 1950 Arrival Date: 03/28/2021 Time: 14:58 Bed 20 Private MD: Diagnosis: Pneumonia, unspecified organism Presentation: 03/28 15:08 Chief complaint: Patient's son or daughter states: SOB, AMS, Vomiting starting this kg morning. Coronavirus screen: Vaccine status: Patient reports being unvaccinated. Client denies travel out of the [place] in the last 14 days. Client presents with at least one sign or symptom that may indicate coronavirus-19. Standard/surgical mask placed on the client. Provider contacted for isolation considerations. Client reports previous positive COVID test result. Ebola Screen: Patient negative for fever greater than or equal to 101.5 degrees Fahrenheit, and additional compatible Ebola Virus Disease symptoms Patient denies exposure to infectious person. Patient denies travel to an Ebola-affected area in the 21 days before illness onset. Initial Sepsis Screen: Does the patient meet any 2 criteria? No. Patient's initial sepsis screen is negative. Does the patient have a suspected source of infection? No. Patient's initial sepsis screen is negative. Risk Assessment: Do you want to hurt yourself or someone else? Patient reports no desire to harm self or others. Onset of symptoms was March 28, 2021 at 08:30. 15:08 Method Of Arrival: Wheelchair kg 15:08 Acuity: ALEJANDRA 3 kg Triage Assessment: 15:12 General: Appears distressed, Behavior is calm, cooperative, appropriate for age, quiet. kg Pain: Complains of pain in left arm Pain currently is 8 out of 10 on a pain scale. at worst was 8 out of 10 on a pain scale. Quality of pain is described as. Respiratory: Airway is patent Trachea midline Respiratory effort is labored, with retractions, Respiratory pattern is tachypnea. Historical: - Allergies: 15:12 PENICILLINS; kg - Home Meds: 15:12 aspirin 81 mg Oral chew 1 tab once daily [Active]; Metformin Oral [Active]; kg - PMHx: 15:12 Cellulitis; Diabetes - NIDDM; Hypertension; kg 15:12 Dementia; kg - PSHx: 15:12 Left AKA; kg - Immunization history:: Adult Immunizations up to date, Client reports having NOT received the Covid vaccine. Last tetanus immunization:. - Social history:: Smoking status: Patient/guardian denies using tobacco, Stopped _ months ago 12. Screenin:00 Abuse screen: Denies threats or abuse. Denies injuries from another. Nutritional bp screening: No deficits noted. Tuberculosis screening: No symptoms or risk factors identified. Fall Risk None identified. Assessment: 15:15 General: SEE TRIAGE NOTE. bp 16:15 Neuro: Level of Consciousness is awake, alert, obeys commands, Oriented to Appropriate bp for age. 18:33 Reassessment: No changes from previously documented assessment. Patient and/or family bp updated on plan of care and expected duration. Pain level reassessed. UOP PENDING. 19:55 Reassessment: patient updated about admission, and medicated. Comfort measures in lh3 place, closed door, pillow provided. Patient resting comfortably in bed. Vital Signs: 15:08 Pulse 75; Resp 24; Temp 98.4(O); Pulse Ox 72% on 6 lpm NC; Weight 58.97 kg (R); Height kg 5 ft. 2 in. (157.48 cm); 15:30 BP 134 / 65; em1 16:15 BP 113 / 62; Pulse 74; Resp 24; Pulse Ox 94% ; bp 17:00 BP 120 / 72; Pulse 75; Resp 18; Pulse Ox 99% ; bp 18:00 BP 132 / 70; Pulse 84; Resp 17; Pulse Ox 90% on R/A; bp 19:55 BP 111 / 71; Pulse 70; Resp 18; Pulse Ox 92% on 4 lpm NC; lh3 21:54 BP 153 / 86; Pulse 72; Resp 18; Pulse Ox 100% on 5 lpm NC; lh3 15:08 Body Mass Index 23.78 (58.97 kg, 157.48 cm) kg Siobhan Coma Score: 20:16 Eye Response: spontaneous(4). Verbal Response: oriented(5). Motor Response: obeys lh3 commands(6). Total: 15. ED Course: 14:58 Patient arrived in ED. as 15:12 Triage completed. kg 15:16 Lionel Gutierrez NP is PHCP. pm1 15:16 Jose Powell MD is Attending Physician. pm1 15:17 Malcolm Beatty, RN is Primary Nurse. bp 15:45 Inserted saline lock: 22 gauge in right forearm, using aseptic technique. Blood bp collected. 15:52 CXR XRAY In Process Unspecified. EDMS 16:00 Patient has correct armband on for positive identification. Bed in low position. Call bp light in reach. Side rails up X2. 19:33 Garo Us MD is Hospitalizing Provider. pm1 20:16 No provider procedures requiring assistance completed. lh3 20:16 library monitor on. Pulse ox on. NIBP on. lh3 20:37 Patient admitted, IV remains in place. lh3 20:37 Arm band placed on right wrist. lh3 Administered Medications: 16:45 Drug: NS 0.9% 500 ml Route: IV; Rate: bolus; Site: left forearm; bp 20:37 Follow up: Response: No adverse reaction; IV Status: Completed infusion lh3 18:45 Drug: morphine 2 mg Route: IVP; Site: left forearm; bp 18:56 Follow up: Response: Pain is decreased bp 19:51 Drug: SOLU-Medrol (methylPrednisoLONE) 125 mg Route: IVP; Site: left hand; lh3 20:20 Follow up: Response: No adverse reaction lh3 19:51 Drug: LevaQUIN (levofloxacin) 500 mg Route: PO; lh3 20:19 Follow up: Response: No adverse reaction 3 Outcome: 19:35 Decision to Hospitalize by Provider. pm1 20:36 Admitted to Med/surg room 415, with oxygen. lh3 20:36 Condition: stable 20:36 Instructed on the need for admit. 21:56 Admitted to Med/surg with chart, Report called to COURTNEY Galvez lh3 22:19 Patient left the ED. ds4 Signatures: Dispatcher [employer] EDMS Jessica López Eric em1 Gerald Adamson ds4 Lionel Gutierrez, CASE FOLDER CASE FOLDER pm1 Malcolm Beatty, RN RN bp Lakesha Smith, COURTNEY VALDEZ kg Soraya Whiteside RN RN lh3
--- NOTE | 2021-03-28 19:36 | EDPHYS ---
Physician Documentation [facility] Name: Amaury Matamoros Age: 70 yrs Sex: Male : 1950 Arrival Date: 03/28/2021 Time: 14:58 Bed 20 Private MD: ED Physician Jose Powell HPI: 03/28 15:39 This 70 yrs old Male presents to ER via Wheelchair with complaints of Altered pm1 Mental Status, Shortness Of Breath, Vomiting. 15:39 The patient presents with decreased mental status. Onset: The symptoms/episode pm1 began/occurred today. Possible causes: shortness of breath, attempted to increase the amount of supplemental oxygen at home but his shortness of breath continued. Associated signs and symptoms: Pertinent positives: nausea, vomiting, Pertinent negatives: abdominal pain, chest pain, diarrhea. Current symptoms: In the emergency department the patient's symptoms have improved. Patient's baseline: Neuro: alert and fully oriented, Motor: no deficits, Speech: normal. The patient has been recently been admitted at [facility], was discharged last week, for similar complaints, pneumonia and discharged home with O2. Historical: - Allergies: 15:12 PENICILLINS; kg - Home Meds: 15:12 aspirin 81 mg Oral chew 1 tab once daily [Active]; Metformin Oral [Active]; kg - PMHx: 15:12 Cellulitis; Diabetes - NIDDM; Hypertension; kg 15:12 Dementia; kg - PSHx: 15:12 Left AKA; kg - Immunization history:: Adult Immunizations up to date, Client reports having NOT received the Covid vaccine. Last tetanus immunization:. - Social history:: Smoking status: Patient/guardian denies using tobacco, Stopped _ months ago 12. ROS: 15:39 Constitutional: Negative for fever, chills, and weight loss. pm1 15:39 Cardiovascular: Negative for chest pain, palpitations, and edema. 15:39 Back: Negative for injury and pain, MS/Extremity: Negative for injury and deformity, Skin: Negative for injury, rash, and discoloration. 15:39 Respiratory: Positive for cough, shortness of breath. 15:39 Abdomen/GI: Positive for nausea and vomiting, Negative for abdominal pain, diarrhea, constipation. 15:39 Neuro: Positive for altered mental status, Negative for headache, numbness, tingling. 15:39 All other systems are negative. Exam: 15:39 Constitutional: This is a well developed, well nourished patient who is awake, alert, pm1 and in no acute distress. Head/Face: Normocephalic, atraumatic. 15:39 Skin: Warm, dry with normal turgor. Normal color with no rashes, no lesions, and no evidence of cellulitis. MS/ Extremity: Pulses equal, no cyanosis. Neurovascular intact. Full, normal range of motion. 15:39 ENT: Exam is negative for acute changes, Mouth: Lips: normal, moist, Oral mucosa: normal, pink and intact, moist. 15:39 Cardiovascular: Rate: normal, Rhythm: regular, Pulses: Heart sounds: normal, normal S1and S2. 15:39 Respiratory: mild respiratory distress is noted, Breath sounds: bronchial sounds, that are mild, are heard diffusely. 15:39 Abdomen/GI: Inspection: abdomen appears normal, Palpation: abdomen is soft and non-tender, in all quadrants. 15:39 Neuro: Orientation: to person, place, situation, Mentation: appropriate for stated age, Motor: moves all fours. Vital Signs: 15:08 Pulse 75; Resp 24; Temp 98.4(O); Pulse Ox 72% on 6 lpm NC; Weight 58.97 kg (R); Height kg 5 ft. 2 in. (157.48 cm); 15:30 BP 134 / 65; em1 16:15 BP 113 / 62; Pulse 74; Resp 24; Pulse Ox 94% ; bp 17:00 BP 120 / 72; Pulse 75; Resp 18; Pulse Ox 99% ; bp 18:00 BP 132 / 70; Pulse 84; Resp 17; Pulse Ox 90% on R/A; bp 19:55 BP 111 / 71; Pulse 70; Resp 18; Pulse Ox 92% on 4 lpm NC; lh3 21:54 BP 153 / 86; Pulse 72; Resp 18; Pulse Ox 100% on 5 lpm NC; lh3 15:08 Body Mass Index 23.78 (58.97 kg, 157.48 cm) kg Siobhan Coma Score: 20:16 Eye Response: spontaneous(4). Verbal Response: oriented(5). Motor Response: obeys lh3 commands(6). Total: 15. MDM: 15:21 Patient medically screened. pm1 19:30 Data reviewed: vital signs. Data interpreted: Pulse oximetry: on 5L(s) per nasal pm1 canula, is 90 %. Interpretation: acceptable. 19:30 Physician consultation: Garo Us MD was contacted at 19:31, regarding admission, pm1 patient's condition, and will see patient tomorrow, would like medications started, Solumedrol 125 mg BID and Levaquin PO. 03/28 15:31 Order name: BMP; Complete Time: 19:04 pm03/28 15:31 Order name: Blood Culture Adult (2) pm1 03/28 15:31 Order name: C-Reactive Protein; Complete Time: 19:04 pm03/28 15:31 Order name: CBC with Diff; Complete Time: 18:28 pm03/28 15:31 Order name: D-Dimer; Complete Time: 16:33 pm03/28 15:31 Order name: Ferritin; Complete Time: 19:04 pm03/28 15:31 Order name: LFT's; Complete Time: 19:04 pm03/28 15:31 Order name: Lactate; Complete Time: 16:33 pm03/28 15:31 Order name: Lipase; Complete Time: 19:04 pm03/28 15:31 Order name: PT-INR; Complete Time: 16:33 pm03/28 15:31 Order name: Procalcitonin; Complete Time: 19:13 pm03/28 15:31 Order name: Ptt, Activated; Complete Time: 16:33 pm03/28 15:31 Order name: Strep; Complete Time: 16:33 pm03/28 15:31 Order name: Troponin (emerg Dept Use Only); Complete Time: 19:04 pm03/28 15:31 Order name: Urine Microscopic Only pm03/28 15:31 Order name: CXR XRAY; Complete Time: 16:25 pm03/28 15:31 Order name: EKG; Complete Time: 15:32 pm03/28 15:31 Order name: Cardiac monitoring; Complete Time: 16:18 pm03/28 15:31 Order name: Droplet/Contact Precautions; Complete Time: 16:18 pm03/28 15:31 Order name: ABG pm03/28 16:33 Order name: Throat Culture EDDC 03/28 18:22 Order name: CBC Smear Scan; Complete Time: 18:28 EDDC 03/28 18:34 Order name: COVID-19/FLU A+B; Complete Time: 18:40 EDDC 03/28 20:00 Order name: Lactate Sepsis 2 HR Follow-up; Complete Time: 20:13 EDDC 03/28 15:31 Order name: EKG - Nurse/Tech; Complete Time: 18:02 pm1 03/28 15:31 Order name: IV Start; Complete Time: 16:18 pm1 03/28 15:31 Order name: Labs collected and sent; Complete Time: 16:18 pm1 03/28 15:31 Order name: O2 Per Protocol; Complete Time: 16:18 pm1 03/28 15:31 Order name: O2 Sat Monitoring; Complete Time: 16:18 pm1 Administered Medications: 16:45 Drug: NS 0.9% 500 ml Route: IV; Rate: bolus; Site: left forearm; bp 20:37 Follow up: Response: No adverse reaction; IV Status: Completed infusion lh3 18:45 Drug: morphine 2 mg Route: IVP; Site: left forearm; bp 18:56 Follow up: Response: Pain is decreased bp 19:51 Drug: SOLU-Medrol (methylPrednisoLONE) 125 mg Route: IVP; Site: left hand; lh3 20:20 Follow up: Response: No adverse reaction lh3 19:51 Drug: LevaQUIN (levofloxacin) 500 mg Route: PO; lh3 20:19 Follow up: Response: No adverse reaction lh3 Disposition Summary: 03/28/21 19:35 Hospitalization Ordered Hospitalization Status: Inpatient Admission pm1 Provider: Garo Us pm1 Location: Telemetry/MedSurg (Inpatient) pm1 Condition: Stable pm1 Problem: new pm1 Symptoms: have improved pm1 Bed/Room Type: Standard pm1 Room Assignment: 415(03/28/21 20:21) Diagnosis - Pneumonia, unspecified organism pm1 Forms: - Medication Reconciliation Form pm1 - SBAR form pm1 Addendum: 03/30/2021 07:08 Co-signature as Attending Physician, Jose Powell MD I agree with the assessment and r n plan of care. Attestation: The patient's history, exam findings, diagnostics, and a summary of any interventions or procedures was reviewed in detail with Lionel Gutierrez NP. Signatures: Dispatcher [employer] EDMS Vesta Deolng, RN Jose Bateman MD MD rn Marinas, Patrick, NP SWEATBAND CUTTING MACHINE OPERATOR pm1 Malcolm Beatty, RN RN Lakesha Duran, RN RN kg Soraya Whiteside RN RN lh3 Corrections: (The following items were deleted from the chart) 03/28 16:07 15:31 Influenza Screen (A \T\ B)+BA.LAB.BRZ ordered. EDMS EDMS 16:07 15:32 CORONAVIRUS+MR.LAB.BRZ ordered. EDMS EDMS 19:35 19:30 Physician consultation: Garo Us MD was contacted at 19:31, regarding pm1 admission, patient's condition, and will see patient tomorrow, would like medications started, Solumedrol 125 mg and Levaquin PO, pm1 20:21 19:35 pm1
[2021-03-28] MEDS ORDERED: levoFLOXacin 500 MG TAB ONE (20:07)
[2021-03-28] MEDS ORDERED: METHYLPREDNISOLONE 125 MG INJ ONE (20:07)
[2021-03-28] MEDS ORDERED: ALBUTEROL 2.5 MG/3 ML NEB SOL NEB PRN (20:33)
[2021-03-28] MEDS ORDERED: IPRATROPIUM BROM 0.5MG/2.5ML NEB PRN (20:33)
[2021-03-28] MEDS ORDERED: HYDROCODONE/APAP 7.5/325 MG TAB PO ONE (22:47)
[2021-03-28 22:59] VITALS: BMI 23.8
[2021-03-28] MEDS ORDERED: HYDROCODONE/APAP 7.5/325 MG TAB ONE (23:37)
[2021-03-29 06:02] LABS: Absolute Lymphocytes (CBC) 0.5 K/uL (0.7-4.9); Basophils % 0.1 % (0-1.3); Hematocrit 27.6 % (39.6-49.0); Lymphocytes % 8.6 % (15.3-44.8); MPV 8.1 fL (7.6-11.3); RBC Red Blood Cell Count 3.14 M/uL (4.33-5.43)
[2021-03-29 06:09] LABS: Potassium 4.1 mmol/L (3.5-5.1)
[2021-03-29] MEDS: METHYLPREDNISOLONE 125 MG INJ IV SCH ×2 (08:40→08:45)
[2021-03-29 09:06] LABS: Anisocytosis SLIGHT; Blood Morphology Comment NOTED (NOT SEEN); Platelet Estimate DECR; White Blood Cell Scan OK (OK)
--- NOTE | 2021-03-29 10:06 | EKG ---
Test Date: 2021-03-28 Test Time: 20:08:56 Correctional Officer Chief: ANNAMARIA MEASUREMENT RESULTS: Intervals: Rate: 76 AR: 148 QRSD: 88 QT: 396 QTc: 445 [place]: P: 42 AR: 148 QRS: 6 T: 11 INTERPRETIVE STATEMENTS: Normal sinus rhythm Possible Anterior infarct, age undetermined Abnormal ECG Compared to ECG 03/28/2021 20:07:50 No significant changes Electronically Signed On 03-29-21 10:04:39 CDT by Noah Keyes
--- NOTE | 2021-03-29 10:06 | EKG ---
Test Date: 2021-03-28 Test Time: 20:07:50 Corporate Planner: ANNAMARIA MEASUREMENT RESULTS: Intervals: Rate: 76 MS: 130 QRSD: 90 QT: 394 QTc: 443 [place]: P: 32 MS: 130 QRS: 3 T: 12 INTERPRETIVE STATEMENTS: Normal sinus rhythm Possible Anterior infarct, age undetermined Abnormal ECG Compared to ECG 03/21/2021 15:36:07 No significant changes Electronically Signed On 03-29-21 10:04:39 CDT by Noah Keyes
--- NOTE | 2021-03-29 10:06 | EKG ---
Test Date: 2021-03-28 Test Time: 17:05:20 Business Development Recruiter: BP MEASUREMENT RESULTS: Intervals: Rate: 74 UT: 90 QRSD: 114 QT: 424 QTc: 470 [place]: P: 95 UT: 90 QRS: -29 T: -2 INTERPRETIVE STATEMENTS: Sinus rhythm with short UT Septal infarct, age undetermined Abnormal ECG Compared to ECG 03/21/2021 15:36:07 Short UT interval now present Myocardial infarct finding still present Electronically Signed On 03-29-21 10:04:43 CDT by Noah Keyes
--- NOTE | 2021-03-29 12:45 | P.HP ---
Certification for Inpatient Patient admitted to: Inpatient With expected LOS: >2 Midnights Patient will require the following post-hospital care: None Practitioner: I am a practitioner with admitting privileges, knowledge of patient current condition, hospital course, and medical plan of care. 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 He is not very compliant. Has a history of PVD. The patient was diagnoised with covid over 3 weeks ago. The family marisel led the office yesterday and spoke to Elvis ZamoraSadler. He was having some confusion. Was directed to turn up his oxygen to 4 lts. However he did not improve and was brought to the ER. Was found to be a bit hypoxic in the 80's and was put on 5 lts nc. This morning he is sitting comfortable on 4 lts. He is asking for pain medications. Something he normally does. He was given hydrocodone last night and is stable on that dosage. Allergies Penicillins Allergy (Intermediate, Verified 03/03/19 18:20) Rash Home Medications: Amlodipine [Norvasc*] 5 mg PO DAILY #30 tab 12/02/20 Gabapentin [Neurontin*] 100 mg PO TID #90 cap 12/02/20 Metoprolol Succinate 1 tab PO DAILY 02/02/21 Hydrocodone Bit/Acetaminophen [Hydrocodon-Acetaminoph 7.5-325] 1 each PO TIDP PRN 7 Days #20 tablet 02/05/21 Metoprolol Tartrate [Lopressor*] 25 mg PO BID 03/29/21 - Past Medical/Surgical History Has patient received pneumonia vaccine in the past: No Diabetic: Yes -: Diabetes mellitus type 2, [id number] -: DM-NIDDM -: Alcohol Abuse -: Tobacco Abuse -: Hypertension -: Chronic pain -: Chronic sacral ulcer -: Left Knee Surgery -: Left BKA with Prosthetic blood -: surg wnd on coccyx wound Psychosocial/ Personal History: He is , has 4 children. He is disabled. - Family History Father -: Heart disease, Hypertension, Diabetes, Cancer Mother -: Diabetes, Stroke - Social History Smoking Status: Former smoker Alcohol use: No CD- Drugs: No Caffeine use: Yes Physical Examination - Vital Signs Temperature: 97.3 F Blood Pressure: 114/68 Pulse: 72 Respirations: 18 Pulse Ox (%): 97 - Physical Exam General: Alert, In no apparent distress HEENT: Atraumatic, PERRLA, Mucous membr. moist/pink, EOMI, Sclerae nonicteric Neck: Supple, 2+ carotid pulse no bruit, No LAD, Without JVD or thyroid abnormality Respiratory: Clear to auscultation bilaterally, Normal air movement Cardiovascular: Regular rate/rhythm, Normal S1 S2 Gastrointestinal: Normal bowel sounds, No tenderness Musculoskeletal: No tenderness Integumentary: No rashes Neurological: Normal gait, Normal speech, Normal strength at 5/5 x4 extr, Normal tone, Normal affect Lymphatics: No axilla or inguinal lymphadenopathy - Studies Laboratory Data (last 24 hrs) 03/28/21 16:00: Sodium 139, Potassium 4.0, BUN 42 H, Creatinine 2.18 H, Glucose 86, Total Bilirubin 0.8, AST 37, ALT 21, Alkaline Phosphatase 128 H, Lipase 69 L 03/28/21 15:45: PT 12.3, INR 1.07, APTT 33.6 03/28/21 15:45: WBC 12.10 H D, Hgb 9.8 L, Hct 29.2 L, Plt Count 107 L D Microbiology Data (last 24 hrs): 03/28/21 15:45 Blood - Blood Anaerobic Blood Culture - Final 03/28/21 15:57 Blood - Blood Anaerobic Blood Culture - Final 03/28/21 15:52 Throat Group A Streptococcus Rapid Screen - Final Assessment and Plan - Problems (Diagnosis) (1) COVID-19 Current Visit: No Status: Acute Plan: May be an exacerbation. Will keep hiim on steroids and vitamin protochol. His crp is acutally lower than previous admissions. Will consider discharge tomorrow. (2) Diabetes Current Visit: No Status: Chronic Plan: will keep him on a sliding scale Qualifiers: Diabetes mellitus type: type 2 Diabetes mellitus long wall mining machine helper insulin use: with longterm use Diabetes mellitus complication status: with circulatory complication Diabetes mellitus complication detail: with peripheral angiopathy with gangrene Qualified Code(s): E11.52 - Type 2 diabetes mellitus with diabetic peripheral angiopathy with gangrene; Z79.4 - superintendent terminal (current) use of insulin (3) Hypertension Onset Date: 04/24/18 Current Visit: No Status: Chronic Plan: restart home amlodipine. Adjust dosages as necessary Qualifiers: Hypertension type: primary hypertension - Advance Directives Does patient have a Living Will: No Does patient have a Durable POA for Healthcare: No
[2021-03-29] MEDS: NA CHLORIDE 0.9% 500 ML IV SCH ×2 (14:16→20:40)
[2021-03-29] MEDS ORDERED: METHYLPRED NA SUC 80 MG in NA CHLORIDE 0.9% 100 ML IV SCH (21:00)
[2021-03-29] MEDS: APIXABAN 5 MG TABLET PO SCH (21:17)
[2021-03-29] MEDS: levoFLOXacin 500 MG TAB PO SCH (21:17)
[2021-03-29] MEDS: METHYLPREDNISOLONE 40 MG INJ IV SCH (21:18)
[2021-03-30] MEDS: NA CHLORIDE 0.9% 500 ML IV SCH ×2 (03:20→10:00)
[2021-03-30 06:45] LABS: Absolute Lymphocytes (CBC) 0.4 K/uL (0.7-4.9); Basophils % 0.2 % (0-1.3); Hematocrit 27.6 % (39.6-49.0); Lymphocytes % 4.5 % (15.3-44.8); MPV 8.9 fL (7.6-11.3)
[2021-03-30 07:04] LABS: Albumin 2.1 g/dL (3.4-5.0); Bilirubin Total 0.5 mg/dL (0.2-1.0); Potassium 3.8 mmol/L (3.5-5.1); Protein, Total 6.2 g/dL (6.4-8.2)
[2021-03-30] MEDS: VITAMIN D 5,000 UNIT CAP PO SCH (09:03)
[2021-03-30] MEDS: ZINC SULFATE 220 MG CAP PO SCH (09:03)
[2021-03-30] MEDS: ASCORBIC ACID 500 MG TABLET PO SCH (09:03)
[2021-03-30] MEDS: APIXABAN 5 MG TABLET PO SCH ×2 (09:03→20:12)
[2021-03-30] MEDS: METHYLPREDNISOLONE 40 MG INJ IV SCH ×2 (09:03→20:13)
[2021-03-30] MEDS ORDERED: GLUCAGON 1 MG/VIAL IM PRN (11:52)
[2021-03-30] MEDS ORDERED: D50W 25 GM/50 ML SYRINGE IV PRN (11:52)
--- NOTE | 2021-03-30 11:59 | P.PN ---
Subjective Date of Service: 03/30/21 Primary Care Provider: Magen Chief Complaint: Covid Subjective: No new changes Review of Systems 10-point ROS is otherwise unremarkable Physical Examination - Vital Signs Temperature: 97.9 F Blood Pressure: 140/80 Pulse: 77 Respirations: 21 Pulse Ox (%): 86 - Physical Exam General: Alert, In no apparent distress HEENT: Atraumatic, PERRLA, EOMI Neck: Supple, JVD not distended Respiratory: Clear to auscultation bilaterally, Normal air movement Cardiovascular: Regular rate/rhythm, Normal S1 S2 Gastrointestinal: Normal bowel sounds, No tenderness Musculoskeletal: No tenderness Integumentary: No rashes Neurological: Normal speech, Normal tone, Normal affect Lymphatics: No axilla or inguinal lymphadenopathy - Studies Microbiology Data (last 24 hrs): 03/28/21 15:52 Throat Culture & Sensitivity - Final NORMAL UPPER RESPIRATORY JAVON GROWN. 03/28/21 15:57 Blood - Blood Anaerobic Blood Culture - Final 03/28/21 15:45 Blood - Blood Anaerobic Blood Culture - Final Assessment & Plan - Problems (Diagnosis) (1) COVID-19 Current Visit: No Status: Acute Plan: May be an exacerbation. Will keep hiim on steroids and vitamin protochol. His crp is acutally lower than previous admissions. Will consider discharge tomorrow. 03/30 Patient is doing well. takes off his oxygen with no difficulty (2) Diabetes Current Visit: No Status: Chronic Plan: will keep him on a sliding scale 03/30 Patient normally does well without medications. Will consider insulin as he has some elevation in his sugars and creatine Qualifiers: Diabetes mellitus type: type 2 Diabetes mellitus snf insulin use: with snf use Diabetes mellitus complication status: with circulatory complication Diabetes mellitus complication detail: with peripheral angiopathy with gangrene Qualified Code(s): E11.52 - Type 2 diabetes mellitus with diabetic peripheral angiopathy with gangrene; Z79.4 - FPC (current) use of insulin (3) Hypertension Onset Date: 04/24/18 Current Visit: No Status: Chronic Plan: restart home amlodipine. Adjust dosages as necessary Qualifiers: Hypertension type: primary hypertension (4) Acute on chronic renal failure Current Visit: No Status: Acute Plan: will consult nephrology Start the patient on fluids. need to control his sugars better. 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
[2021-03-30] MEDS ORDERED: NA CHLORIDE 0.9% 1,000 ML IV SCH (12:00)
--- NOTE | 2021-03-30 17:08 | P.CNS ---
Date of Consult: 03/30/21 Reason for Consult: CALDERON/ CKD Requesting Physician: Garo Us Primary Care Provider: Magen Chief Complaint: Covid History of Present Illness: 70 yo HM CKD, DM presented to the ER with moderate, persistent dyspnea in the setting of COVID diagnosed three weeks ago. 15:39 This 70 yrs old Male presents to ER via Wheelchair with complaints of Altered pm1 Mental Status, Shortness Of Breath, Vomiting. 15:39 The patient presents with decreased mental status. Onset: The symptoms/episode pm1 began/occurred today. Possible causes: shortness of breath, attempted to increase the amount of supplemental oxygen at home but his shortness of breath continued. Associated signs and symptoms: Pertinent positives: nausea, vomiting, Pertinent negatives: abdominal pain, chest pain, diarrhea. Current symptoms: In the emergency department the patient's symptoms have improved. Patient's baseline: Neuro: alert and fully oriented, Motor: no deficits, Speech: normal. The patient has been recently been admitted at [facility], was discharged last week, for similar complaints, pneumonia and discharged home with O2. Allergies Penicillins Allergy (Intermediate, Verified 03/03/19 18:20) Rash Home medications list reviewed: Yes Home Medications: Amlodipine [Norvasc*] 5 mg PO DAILY #30 tab 12/02/20 Gabapentin [Neurontin*] 100 mg PO TID #90 cap 12/02/20 Metoprolol Succinate 1 tab PO DAILY 02/02/21 Hydrocodone Bit/Acetaminophen [Hydrocodon-Acetaminoph 7.5-325] 1 each PO TIDP PRN 7 Days #20 tablet 02/05/21 Metoprolol Tartrate [Lopressor*] 25 mg PO BID 03/29/21 - Past Medical/Surgical History Diabetic: Yes -: Diabetes mellitus type 2, [id number] -: DM-NIDDM -: Alcohol Abuse -: Tobacco Abuse -: Hypertension -: Chronic pain -: Chronic sacral ulcer -: Left Knee Surgery -: Left BKA with Prosthetic blood -: surg wnd on coccyx wound Psychosocial/ Personal History: He is , has 4 children. He is disabled. - Family History Father Medical History: Heart disease, Hypertension, Diabetes, Cancer Mother Medical History: Diabetes, Stroke - Social History Smoking Status: Current some day smoker Alcohol use: No CD- Drugs: No Caffeine use: Yes Review of Systems 10-point ROS is otherwise unremarkable Neurological: Weakness Physical Examination Temp Pulse Resp BP Pulse Ox 97.8 F 88 20 144/83 H 96 03/30/21 12:00 03/30/21 12:00 03/30/21 12:00 03/30/21 12:00 03/30/21 12:00 General: In no apparent distress, Cooperative HEENT: Atraumatic Neck: Supple Respiratory: Clear to auscultation bilaterally Cardiovascular: No edema, Regular rate/rhythm Gastrointestinal: Soft and benign, Non-distended Musculoskeletal: No clubbing, No contractures Integumentary: No rashes, No cyanosis Neurological: Normal speech Blood work reviewed in the chart. Imagings Data: EXAM DESCRIPTION: RAD - Chest Single View - 03/28/2021 3:52 pm CLINICAL HISTORY: SOB COMPARISON: Portable March 21 TECHNIQUE: AP portable chest image was obtained 03/28/2021 3:52 pm . FINDINGS: Patient has extensive baseline interstitial fibrotic change. Interstitial and alveolar opacities are present in each lung base in the lateral mid lung field. Pattern is similar to slightly worse than seen March 21. Bilateral pneumonia including COVID-19 pneumonia would be primary considerations. Cardiac silhouette is prominent. No vascular engorgement. No pneumothorax seen. No large pleural effusions. IMPRESSION: Bilateral pneumonia pattern similar or slightly worse than seen on March 21. Conclusions/Impression: CALDERON likely hypovolemia CKD III with proteinuria -Change IVF 1/2NS -No NSAIDs HTN with CKD/ CHF -Restart Metoprolol Diastolic CHF, chronic -Restart Metoprolol DM II with CKD -No sugar diet Moderate malnutrition -Encourage nutrition Anemia in chronic illness -Retacrit X1 CKD MBD Hypocalcemia -Start Vitamin D Thank you kindly for the consultation. Case reviewed with Dr. Us
[2021-03-30] MEDS: INSULIN -REGULAR HUMAN 50 UNIT/0.5 ML ML SQ SCH ×2 (17:35→21:00)
[2021-03-30] MEDS: levoFLOXacin 500 MG TAB PO SCH (20:12)
[2021-03-30] MEDS: NACHLORIDE 0.45% 1,000 ML IV SCH (22:33)
[2021-03-31] MEDS: METOPROLOL TAR 25 MG TAB PO SCH ×2 (06:08→18:06)
[2021-03-31 06:45] LABS: Absolute Lymphocytes (CBC) 0.5 K/uL (0.7-4.9); Basophils % 0.3 % (0-1.3); Hematocrit 24.5 % (39.6-49.0); Lymphocytes % 4.1 % (15.3-44.8); RBC Red Blood Cell Count 2.79 M/uL (4.33-5.43)
[2021-03-31 07:08] LABS: Albumin 2.2 g/dL (3.4-5.0); Bilirubin Total 0.5 mg/dL (0.2-1.0); Magnesium 1.7 mg/dL (1.8-2.4); Phosphorus 3.4 mg/dL (2.5-4.9); Potassium 3.7 mmol/L (3.5-5.1); Uric Acid 7.4 mg/dL (3.5-7.2)
[2021-03-31] MEDS: INSULIN -REGULAR HUMAN 50 UNIT/0.5 ML ML SQ SCH ×4 (07:30→21:00)
[2021-03-31] MEDS: NACHLORIDE 0.45% 1,000 ML IV SCH ×2 (08:00→18:00)
[2021-03-31 08:55] LABS: Anisocytosis 1+; Blood Morphology Comment NOTED (NOT SEEN); Platelet Estimate DECR; White Blood Cell Scan OK (OK)
[2021-03-31] MEDS: VITAMIN D 5,000 UNIT CAP PO SCH (09:00)
[2021-03-31] MEDS: ASCORBIC ACID 500 MG TABLET PO SCH (09:00)
[2021-03-31] MEDS: ZINC SULFATE 220 MG CAP PO SCH (09:00)
[2021-03-31] MEDS: METHYLPREDNISOLONE 40 MG INJ IV SCH ×2 (09:00→21:08)
[2021-03-31] MEDS ORDERED: EPOETIN ALFA-EPBX 10,000 UNIT/ML VIAL SQ SCH (09:00)
[2021-03-31] MEDS: CALCITROL 0.25 MCG CAP PO SCH (09:00)
[2021-03-31] MEDS: APIXABAN 5 MG TABLET PO SCH ×2 (09:00→21:09)
[2021-03-31] MEDS ORDERED: NACHLORIDE 0.45% 1,000 ML IV ONE (09:45)
--- NOTE | 2021-03-31 17:08 | P.PN ---
Subjective Date of Service: 03/31/21 Primary Care Provider: Magen Chief Complaint: Covid Subjective: No new changes Review of Systems 10-point ROS is otherwise unremarkable Physical Examination - Vital Signs Temperature: 97 F Blood Pressure: 164/87 Pulse: 94 Respirations: 20 Pulse Ox (%): 93 - Physical Exam General: Alert, In no apparent distress HEENT: Atraumatic, PERRLA, EOMI Neck: Supple, JVD not distended Respiratory: Clear to auscultation bilaterally, Normal air movement Cardiovascular: Regular rate/rhythm, Normal S1 S2 Gastrointestinal: Normal bowel sounds, No tenderness Musculoskeletal: No tenderness Integumentary: No rashes Neurological: Normal speech, Normal tone, Normal affect Lymphatics: No axilla or inguinal lymphadenopathy Assessment & Plan - Problems (Diagnosis) (1) COVID-19 Current Visit: No Status: Acute Plan: May be an exacerbation. Will keep hiim on steroids and vitamin protochol. His crp is acutally lower than previous admissions. Will consider discharge tomorrow. 03/30 Patient is doing well. takes off his oxygen with no difficulty (2) Diabetes Current Visit: No Status: Chronic Plan: will keep him on a sliding scale 03/30 Patient normally does well without medications. 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 need to control his sugars better. 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
[2021-03-31] MEDS: AMLODIPINE 5 MG TAB PO SCH (18:06)
--- NOTE | 2021-03-31 19:25 | P.PN ---
Date of Service: 03/31/21 Vital Signs Temp Pulse Resp BP Pulse Ox 97 F 94 H 20 164/87 H 93 03/31/21 17:08 03/31/21 18:06 03/31/21 17:08 03/31/21 17:08 03/31/21 17:08 Medications Albuterol Sulfate (Albuterol 2.5 Mg/3 Ml Neb [place]) 2.5 mg NEB Q4H PRN PRN Reason: WHEEZING Amlodipine Besylate (Amlodipine 5 Mg Tab) 5 mg PO DAILY [facility] Last Admin: 03/31/21 18:06 Dose: 5 mg Documented by: Apixaban (Apixaban 5 Mg Tablet) 5 mg PO BID [facility] Last Admin: 03/31/21 09:00 Dose: 5 mg Documented by: Ascorbic Acid (Ascorbic Acid 500 Mg Tablet) 500 mg PO DAILY [facility] Last Admin: 03/31/21 09:00 Dose: 500 mg Documented by: Calcitriol (Calcitrol 0.25 Mcg Cap) 0.5 mcg PO DAILY [facility] Last Admin: 03/31/21 09:00 Dose: 0.5 mcg Documented by: Cholecalciferol (Vitamin D 5,000 Unit Cap) 5,000 unit PO DAILY [facility] Last Admin: 03/31/21 09:00 Dose: 5,000 unit Documented by: Dextrose (D50w 25 Gm/50 Ml Syringe) 12.5 gm IV PRN PRN; Protocol PRN Reason: HYPOGLYCEMIA Ergocalciferol (Drisdol (Vitamin D=Ergocalciferol) 16014 Unit Cap) 50,000 unit PO Q7D@0900 [facility] Glucagon (Glucagon 1 Mg/Vial) 1 mg IM 1X PRN; Protocol PRN Reason: HYPOGLYCEMIA Sodium Chloride (Sodium Chloride 0.45%) 1,000 mls @ 100 mls/hr IV .Q10H [facility] Last Admin: 03/31/21 08:00 Dose: 1,000 mls Documented by: Insulin Human Regular (Insulin -Regular Human 50 Unit/0.5 Ml Ml) 0 unit SQ ACHS [facility]; Protocol Last Admin: 03/31/21 16:29 Dose: Not Given Documented by: Ipratropium [place] (Ipratropium Brom 0.5mg/2.5ml) 0.5 mg NEB Q4H PRN PRN Reason: WHEEZING Levofloxacin (Levofloxacin 500 Mg Tab) 500 mg PO BEDTIME [facility]; Protocol Last Admin: 03/30/21 20:12 Dose: 500 mg Documented by: Methylprednisolone Sodium Succinate (Methylprednisolone 40 Mg Inj) 80 mg IV Q12HR [facility] Last Admin: 03/31/21 09:00 Dose: 80 mg Documented by: Metoprolol Tartrate (Metoprolol Tar 25 Mg Tab) 50 mg PO BID 6AM 6PM [facility] Sodium Chloride (Flush Normal Saline 10 Ml) 10 ml IV BID [facility] Last Admin: 03/31/21 09:00 Dose: 10 ml Documented by: Zinc Sulfate (Zinc Sulfate 220 Mg Cap) 220 mg PO DAILY [facility] Last Admin: 03/31/21 09:00 Dose: 220 mg Documented by: Microbiology Results 03/28/21 15:52 Throat Culture & Sensitivity - Final NORMAL UPPER RESPIRATORY [facility] GROWN. 03/28/21 15:57 Blood - Blood Aerobic Blood Culture - Preliminary No growth in 24 hours. 03/28/21 15:57 Blood - Blood Anaerobic Blood Culture - Final 03/28/21 15:45 Blood - Blood Aerobic Blood Culture - Preliminary No growth in 24 hours. 03/28/21 15:45 Blood - Blood Anaerobic Blood Culture - Final 03/28/21 15:52 Throat Group A Streptococcus Rapid Screen - Final Assessment/ Plan: Nephrology Progress Note Feeling better. No chest pain or dyspnea No acute events overnight Vitals, medications blood work and imaging reviewed in the chart General: In no apparent distress, Cooperative HEENT: Atraumatic Neck: Supple Respiratory: Clear to auscultation bilaterally Cardiovascular: No edema, Regular rate/rhythm Gastrointestinal: Soft and benign, Non-distended Musculoskeletal: No clubbing, No contractures Integumentary: No rashes, No cyanosis Neurological: Normal speech Blood work reviewed in the chart. Imagings Data: EXAM DESCRIPTION: RAD - Chest Single View - 03/28/2021 3:52 pm CLINICAL HISTORY: SOB COMPARISON: Portable March 21 TECHNIQUE: AP portable chest image was obtained 03/28/2021 3:52 pm . FINDINGS: Patient has extensive baseline interstitial fibrotic change. Interstitial and alveolar opacities are present in each lung base in the lateral mid lung field. Pattern is similar to slightly worse than seen March 21. Bilateral pneumonia including COVID-19 pneumonia would be primary considerations. Cardiac silhouette is prominent. No vascular engorgement. No pneumothorax seen. No large pleural effusions. IMPRESSION: Bilateral pneumonia pattern similar or slightly worse than seen on March 21. Conclusions/Impression: CALDERON likely hypovolemia CKD III with proteinuria -Continue IVF 1/2NS -No NSAIDs HTN with CKD/ CHF -Increase Metoprolol -Agree with restart amlodipine Diastolic CHF, chronic -Continue Metoprolol DM II with CKD -No sugar diet Moderate malnutrition -Encourage nutrition Anemia in chronic illness -Retacrit prn CKD MBD Hypocalcemia -Continue Vitamin D
[2021-03-31] MEDS: levoFLOXacin 500 MG TAB PO SCH (21:09)
[2021-04-01] MEDS: NACHLORIDE 0.45% 1,000 ML IV SCH ×3 (04:00→21:07)
[2021-04-01] MEDS: METOPROLOL TAR 25 MG TAB PO SCH ×2 (05:30→17:02)
[2021-04-01 07:02] LABS: Absolute Lymphocytes (CBC) 0.5 K/uL (0.7-4.9); Basophils % 0.4 % (0-1.3); Hematocrit 23.6 % (39.6-49.0); Lymphocytes % 4.1 % (15.3-44.8); MPV 7.9 fL (7.6-11.3); RBC Red Blood Cell Count 2.68 M/uL (4.33-5.43)
[2021-04-01 07:19] LABS: Albumin 2.2 g/dL (3.4-5.0); Bilirubin Total 0.7 mg/dL (0.2-1.0); Potassium 3.5 mmol/L (3.5-5.1); Protein, Total 5.6 g/dL (6.4-8.2)
[2021-04-01] MEDS: INSULIN -REGULAR HUMAN 50 UNIT/0.5 ML ML SQ SCH ×4 (07:30→21:00)
[2021-04-01] MEDS: ZINC SULFATE 220 MG CAP PO SCH (08:20)
[2021-04-01] MEDS: CALCITROL 0.25 MCG CAP PO SCH (08:20)
[2021-04-01] MEDS: APIXABAN 5 MG TABLET PO SCH ×2 (08:20→21:15)
[2021-04-01] MEDS: VITAMIN D 5,000 UNIT CAP PO SCH (08:20)
[2021-04-01] MEDS: AMLODIPINE 5 MG TAB PO SCH (08:20)
[2021-04-01] MEDS: ASCORBIC ACID 500 MG TABLET PO SCH (08:20)
[2021-04-01] MEDS: METHYLPREDNISOLONE 40 MG INJ IV SCH ×2 (08:21→21:16)
--- NOTE | 2021-04-01 12:06 | P.PN ---
Subjective Date of Service: 04/01/21 Primary Care Provider: Magen Chief Complaint: Covid Subjective: No new changes Patient took off his oxygen and is currently on high flow oxygen Review of Systems 10-point ROS is otherwise unremarkable Physical Examination - Vital Signs Temperature: 98.3 F Blood Pressure: 164/89 Pulse: 94 Respirations: 20 Pulse Ox (%): 95 - Physical Exam General: Alert, In no apparent distress HEENT: Atraumatic, PERRLA, EOMI Neck: Supple, JVD not distended Respiratory: Clear to auscultation bilaterally, Normal air movement Cardiovascular: Regular rate/rhythm, Normal S1 S2 Gastrointestinal: Normal bowel sounds, No tenderness Musculoskeletal: No tenderness Integumentary: No rashes Neurological: Normal speech, Normal tone, Normal affect Lymphatics: No axilla or inguinal lymphadenopathy Assessment & Plan - Problems (Diagnosis) (1) COVID-19 Current Visit: No Status: Acute Plan: May be an exacerbation. Will keep hiim on steroids and vitamin protochol. His crp is acutally lower than previous admissions. Will consider discharge tomorrow. 03/30 Patient is doing well. takes off his oxygen with no difficulty (2) Diabetes Current Visit: No Status: Chronic Plan: will keep him on a sliding scale 03/30 Patient normally does well without medications. 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 need to control his sugars better. 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
[2021-04-01] MEDS ORDERED: LORazepam 2 MG/ML VIAL IV ONE (20:38)
--- NOTE | 2021-04-01 21:11 | P.PN ---
Date of Service: 04/01/21 Vital Signs Temp Pulse Resp BP Pulse Ox 98 F 97 H 22 H 140/72 90 L 04/01/21 16:00 04/01/21 16:00 04/01/21 16:00 04/01/21 16:00 04/01/21 16:00 Medications Albuterol Sulfate (Albuterol 2.5 Mg/3 Ml Neb [place]) 2.5 mg NEB Q4H PRN PRN Reason: WHEEZING Amlodipine Besylate (Amlodipine 5 Mg Tab) 5 mg PO DAILY [facility] Last Admin: 04/01/21 08:20 Dose: 5 mg Documented by: Apixaban (Apixaban 5 Mg Tablet) 5 mg PO BID [facility] Last Admin: 04/01/21 08:20 Dose: 5 mg Documented by: Ascorbic Acid (Ascorbic Acid 500 Mg Tablet) 500 mg PO DAILY [facility] Last Admin: 04/01/21 08:20 Dose: 500 mg Documented by: Calcitriol (Calcitrol 0.25 Mcg Cap) 0.5 mcg PO DAILY [facility] Last Admin: 04/01/21 08:20 Dose: 0.5 mcg Documented by: Cholecalciferol (Vitamin D 5,000 Unit Cap) 5,000 unit PO DAILY [facility] Last Admin: 04/01/21 08:20 Dose: 5,000 unit Documented by: Dextrose (D50w 25 Gm/50 Ml Syringe) 12.5 gm IV PRN PRN; Protocol PRN Reason: HYPOGLYCEMIA Ergocalciferol (Drisdol (Vitamin D=Ergocalciferol) 81251 Unit Cap) 50,000 unit PO Q7D@0900 [facility] Glucagon (Glucagon 1 Mg/Vial) 1 mg IM 1X PRN; Protocol PRN Reason: HYPOGLYCEMIA Sodium Chloride (Sodium Chloride 0.45%) 1,000 mls @ 75 mls/hr IV .[id number] [facility] Insulin Human Regular (Insulin -Regular Human 50 Unit/0.5 Ml Ml) 0 unit SQ ACHS [facility]; Protocol Last Admin: 04/01/21 16:03 Dose: 2 unit Documented by: Ipratropium [place] (Ipratropium Brom 0.5mg/2.5ml) 0.5 mg NEB Q4H PRN PRN Reason: WHEEZING Levofloxacin (Levofloxacin 500 Mg Tab) 500 mg PO BEDTIME [facility]; Protocol Last Admin: 03/31/21 21:09 Dose: 500 mg Documented by: Methylprednisolone Sodium Succinate (Methylprednisolone 40 Mg Inj) 80 mg IV Q12HR [facility] Last Admin: 04/01/21 08:21 Dose: 80 mg Documented by: Metoprolol Tartrate (Metoprolol Tar 25 Mg Tab) 50 mg PO BID 6AM 6PM [facility] Last Admin: 04/01/21 17:02 Dose: 50 mg Documented by: Sodium Chloride (Flush Normal Saline 10 Ml) 10 ml IV BID [facility] Last Admin: 04/01/21 08:21 Dose: 10 ml Documented by: Zinc Sulfate (Zinc Sulfate 220 Mg Cap) 220 mg PO DAILY [facility] Last Admin: 04/01/21 08:20 Dose: 220 mg Documented by: Microbiology Results 03/28/21 15:52 Throat Culture & Sensitivity - Final NORMAL UPPER RESPIRATORY [facility] GROWN. 03/28/21 15:57 Blood - Blood Aerobic Blood Culture - Preliminary No growth in 24 hours. 03/28/21 15:57 Blood - Blood Anaerobic Blood Culture - Final 03/28/21 15:45 Blood - Blood Aerobic Blood Culture - Preliminary No growth in 24 hours. 03/28/21 15:45 Blood - Blood Anaerobic Blood Culture - Final 03/28/21 15:52 Throat Group A Streptococcus Rapid Screen - Final Assessment/ Plan: Nephrology Progress Note Fair appetite Persistent dyspnea with hypoxia No acute events overnight Vitals, medications blood work and imaging reviewed in the chart General: In no apparent distress, Cooperative HEENT: Atraumatic Neck: Supple Respiratory: Clear to auscultation bilaterally Cardiovascular: No edema, Regular rate/rhythm Gastrointestinal: Soft and benign, Non-distended Musculoskeletal: No clubbing, No contractures Integumentary: No rashes, No cyanosis Neurological: Normal speech Blood work reviewed in the chart. Imagings Data: EXAM DESCRIPTION: RAD - Chest Single View - 03/28/2021 3:52 pm CLINICAL HISTORY: SOB COMPARISON: Portable March 21 TECHNIQUE: AP portable chest image was obtained 03/28/2021 3:52 pm . FINDINGS: Patient has extensive baseline interstitial fibrotic change. Interstitial and alveolar opacities are present in each lung base in the lateral mid lung field. Pattern is similar to slightly worse than seen March 21. Bilateral pneumonia including COVID-19 pneumonia would be primary considerations. Cardiac silhouette is prominent. No vascular engorgement. No pneumothorax seen. No large pleural effusions. IMPRESSION: Bilateral pneumonia pattern similar or slightly worse than seen on March 21. Conclusions/Impression: CALDERON likely hypovolemia CKD III with proteinuria -Reduce IVF 1/2NS -No NSAIDs HTN with CKD/ CHF -Continue Metoprolol and Amlodipine Diastolic CHF, chronic -Continue Metoprolol DM II with CKD -No sugar diet Moderate malnutrition -Encourage nutrition Anemia in chronic illness -Retacrit prn CKD MBD Hypocalcemia -Continue Vitamin D
[2021-04-01] MEDS: levoFLOXacin 500 MG TAB PO SCH (21:16)
[2021-04-02] MEDS: NACHLORIDE 0.45% 1,000 ML IV SCH ×3 (01:18→23:47)
[2021-04-02] MEDS: METOPROLOL TAR 25 MG TAB PO SCH ×2 (06:12→17:32)
[2021-04-02] MEDS: INSULIN -REGULAR HUMAN 50 UNIT/0.5 ML ML SQ SCH ×4 (07:30→21:00)
[2021-04-02] MEDS: ASCORBIC ACID 500 MG TABLET PO SCH (09:11)
[2021-04-02] MEDS: APIXABAN 5 MG TABLET PO SCH ×2 (09:29→21:16)
[2021-04-02] MEDS: VITAMIN D 5,000 UNIT CAP PO SCH (09:29)
[2021-04-02] MEDS: CALCITROL 0.25 MCG CAP PO SCH (09:29)
[2021-04-02] MEDS: ZINC SULFATE 220 MG CAP PO SCH (09:29)
[2021-04-02] MEDS: AMLODIPINE 5 MG TAB PO SCH (09:30)
[2021-04-02] MEDS: METHYLPREDNISOLONE 40 MG INJ IV SCH ×2 (09:33→21:15)
[2021-04-02] MEDS ORDERED: WATER FOR INJ,STERILE 10 ML IM PRN (11:23)
--- NOTE | 2021-04-02 11:27 | P.PN ---
Subjective Date of Service: 04/02/21 Primary Care Provider: Magen Chief Complaint: Covid Subjective: New changes (patient removes his oxygen and desaturates) Patient took off his oxygen and is currently on high flow oxygen Review of Systems is unable to be obtained Physical Examination - Vital Signs Temperature: 97.3 F Blood Pressure: 143/74 Pulse: 71 Respirations: 22 Pulse Ox (%): 95 - Physical Exam General: In no apparent distress, Comatose HEENT: Atraumatic, PERRLA, EOMI Neck: Supple, JVD not distended Respiratory: Clear to auscultation bilaterally, Normal air movement Cardiovascular: Regular rate/rhythm, Normal S1 S2 Gastrointestinal: Normal bowel sounds, No tenderness Musculoskeletal: No tenderness Integumentary: No rashes Neurological: Normal speech, Normal tone, Normal affect Lymphatics: No axilla or inguinal lymphadenopathy Assessment & Plan - Problems (Diagnosis) (1) COVID-19 Current Visit: No Status: Acute Plan: May be an exacerbation. Will keep hiim on steroids and vitamin protochol. His crp is acutally lower than previous admissions. Will consider discharge tomorrow. 04/02 Hypoxic. Will need to discuss with his family code status. I have called and left a message. Would not like to intubate the patient as he is a very poor prognosis after intubation. (2) Diabetes Current Visit: No Status: Chronic Plan: will keep him on a sliding scale 03/30 Patient normally does well without medications. 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 need to control his sugars better. 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
[2021-04-02] MEDS: ZIPRASIDONE MESYLA 20 MG/VIAL IM PRN (17:36)
[2021-04-02] MEDS: levoFLOXacin 500 MG TAB PO SCH (21:15)
[2021-04-02] MEDS: HALOPERIDOL LACT 5 MG/ML INJ IM PRN (21:16)
[2021-04-03] MEDS: ZIPRASIDONE MESYLA 20 MG/VIAL IM PRN ×2 (00:04→09:33)
[2021-04-03] MEDS: HALOPERIDOL LACT 5 MG/ML INJ IM PRN ×3 (03:04→20:48)
[2021-04-03] MEDS: NACHLORIDE 0.45% 1,000 ML IV SCH (03:54)
[2021-04-03] MEDS: METOPROLOL TAR 25 MG TAB PO SCH ×2 (05:17→16:33)
[2021-04-03] MEDS: INSULIN -REGULAR HUMAN 50 UNIT/0.5 ML ML SQ SCH ×4 (07:30→20:47)
[2021-04-03] MEDS: VITAMIN D 5,000 UNIT CAP PO SCH (08:06)
[2021-04-03] MEDS: ASCORBIC ACID 500 MG TABLET PO SCH (08:06)
[2021-04-03] MEDS: CALCITROL 0.25 MCG CAP PO SCH (08:06)
[2021-04-03] MEDS: METHYLPREDNISOLONE 40 MG INJ IV SCH ×2 (08:06→20:47)
[2021-04-03] MEDS: ZINC SULFATE 220 MG CAP PO SCH (08:06)
[2021-04-03] MEDS: APIXABAN 5 MG TABLET PO SCH ×2 (08:06→20:48)
[2021-04-03] MEDS: AMLODIPINE 5 MG TAB PO SCH (08:23)
--- NOTE | 2021-04-03 12:51 | P.PN ---
Subjective Date of Service: 04/03/21 Primary Care Provider: Magen Chief Complaint: Covid Patient confused. Desaturates off oxygen. Review of Systems Respiratory: Shortness of Breath Physical Examination - Vital Signs Temperature: 98.2 F Blood Pressure: 109/55 Pulse: 85 Respirations: 20 Pulse Ox (%): 85 - Physical Exam General: Alert, Moderate distress HEENT: Atraumatic, PERRLA, EOMI Neck: Supple, JVD not distended Respiratory: Normal air movement, Other (tachypnea) Cardiovascular: Regular rate/rhythm, Normal S1 S2 Gastrointestinal: Normal bowel sounds, No tenderness Musculoskeletal: No tenderness Integumentary: No rashes Neurological: Normal speech, Normal tone, Normal affect Lymphatics: No axilla or inguinal lymphadenopathy - Studies Microbiology Data (last 24 hrs): 03/28/21 15:57 Blood - Blood Aerobic Blood Culture - Final No growth in 5 days. 03/28/21 15:57 Blood - Blood Anaerobic Blood Culture - Final 03/28/21 15:45 Blood - Blood Aerobic Blood Culture - Final No growth in 5 days. 03/28/21 15:45 Blood - Blood Anaerobic Blood Culture - Final Assessment & Plan - Problems (Diagnosis) (1) COVID-19 Current Visit: No Status: Acute Plan: May be an exacerbation. Will keep hiim on steroids and vitamin protochol. His crp is acutally lower than previous admissions. Will consider discharge tomorrow. 04/02 Hypoxic. Will need to discuss with his family code status. I have called and left a message. Would not like to intubate the patient as he is a very poor prognosis after intubation. (2) Diabetes Current Visit: No Status: Chronic Plan: will keep him on a sliding scale 03/30 Patient normally does well without medications. 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 need to control his sugars better. 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 Yesterday. Will continue treatment. However they do not want him on a ventilator. Will make him a dni Discharge Plan: Home Plan to discharge in: 24 Hours - Code Status/Comfort Care Code Status Assessed: No Code Status: Do Not Intubate Physician Review: Patient Assessed, Agree with Above Assessment and Plan Critical Care: No Time Spent Managing Pts Care (In Minutes): 20
[2021-04-03] MEDS: levoFLOXacin 500 MG TAB PO SCH (20:47)
[2021-04-04] MEDS: NACHLORIDE 0.45% 1,000 ML IV SCH ×2 (02:00→16:53)
[2021-04-04] MEDS: METOPROLOL TAR 25 MG TAB PO SCH ×2 (06:00→17:01)
[2021-04-04] MEDS: INSULIN -REGULAR HUMAN 50 UNIT/0.5 ML ML SQ SCH ×4 (07:30→21:00)
[2021-04-04] MEDS: ZINC SULFATE 220 MG CAP PO SCH (09:00)
[2021-04-04] MEDS: AMLODIPINE 5 MG TAB PO SCH (09:00)
[2021-04-04] MEDS: APIXABAN 5 MG TABLET PO SCH ×2 (09:00→21:00)
[2021-04-04] MEDS: VITAMIN D 5,000 UNIT CAP PO SCH (09:00)
[2021-04-04] MEDS: CALCITROL 0.25 MCG CAP PO SCH (09:00)
[2021-04-04] MEDS: ASCORBIC ACID 500 MG TABLET PO SCH (09:00)
[2021-04-04] MEDS: METHYLPREDNISOLONE 40 MG INJ IV SCH ×2 (09:08→21:32)
--- NOTE | 2021-04-04 12:23 | P.PN ---
Subjective Date of Service: 04/04/21 Primary Care Provider: Magen Chief Complaint: Covid Subjective: Worsening Patient is started on cpap. His oxygen is betwen 40-80%. Review of Systems 10-point ROS is otherwise unremarkable Physical Examination - Vital Signs Temperature: 96.7 F Blood Pressure: 93/50 Pulse: 73 Respirations: 25 Pulse Ox (%): 75 - Physical Exam General: Alert, Moderate distress HEENT: Atraumatic, PERRLA, EOMI Neck: Supple, JVD not distended Respiratory: Clear to auscultation bilaterally, Normal air movement Cardiovascular: Regular rate/rhythm, Normal S1 S2 Gastrointestinal: Normal bowel sounds, No tenderness Musculoskeletal: No tenderness Integumentary: No rashes Neurological: Normal speech, Normal tone, Normal affect Lymphatics: No axilla or inguinal lymphadenopathy Assessment & Plan - Problems (Diagnosis) (1) COVID-19 Current Visit: No Status: Acute Plan: May be an exacerbation. Will keep hiim on steroids and vitamin protochol. His crp is acutally lower than previous admissions. Will consider discharge tomorrow. 04/04 Patient is worsening. Have called the spouse. Will continue current treatment. (2) Diabetes Current Visit: No Status: Chronic Plan: will keep him on a sliding scale 03/30 Patient normally does well without medications. Will consider insulin as he has some elevation in his sugars and creatine Qualifiers: Diabetes mellitus type: type 2 Diabetes mellitus mcc insulin use: with long term care social worker use Diabetes mellitus complication status: with circulatory complication Diabetes mellitus complication detail: with peripheral angiopathy with gangrene Qualified Code(s): E11.52 - Type 2 diabetes mellitus with diabetic peripheral angiopathy with gangrene; Z79.4 - long term care social worker (current) use of insulin (3) Hypertension Onset Date: 04/24/18 Current Visit: No Status: Chronic Plan: 03/31 Restart amlodipine Qualifiers: Hypertension type: primary hypertension (4) Acute on chronic renal failure Current Visit: No Status: Acute Plan: will consult nephrology Start the patient on fluids. need to control his sugars better. 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 Yesterday. Will continue treatment. However they do not want him on a ventilator. Will make him a dni Discharge Plan: Home Plan to discharge in: Greater than 2 days - Code Status/Comfort Care Code Status Assessed: No Physician Review: Patient Assessed, Agree with Above Assessment and Plan Critical Care: No Time Spent Managing Pts Care (In Minutes): 25
[2021-04-04] MEDS: HALOPERIDOL LACT 5 MG/ML INJ IM PRN (16:54)
[2021-04-04] MEDS: ZIPRASIDONE MESYLA 20 MG/VIAL IM PRN (17:36)
[2021-04-04] MEDS ORDERED: WATER FOR INJ,STERILE 10 ML ONE (17:53)
--- NOTE | 2021-04-04 20:43 | P.PN ---
Date of Service: 04/04/21 Vital Signs Temp Pulse Resp BP Pulse Ox 96.8 F 84 24 H 129/60 94 04/04/21 20:00 04/04/21 20:00 04/04/21 20:00 04/04/21 20:00 04/04/21 20:00 Medications Albuterol Sulfate (Albuterol 2.5 Mg/3 Ml Neb [place]) 2.5 mg NEB Q4H PRN PRN Reason: WHEEZING Apixaban (Apixaban 5 Mg Tablet) 5 mg PO BID [facility] Last Admin: 04/04/21 09:00 Dose: Not Given Documented by: Ascorbic Acid (Ascorbic Acid 500 Mg Tablet) 500 mg PO DAILY [facility] Last Admin: 04/04/21 09:00 Dose: Not Given Documented by: Calcitriol (Calcitrol 0.25 Mcg Cap) 0.5 mcg PO DAILY [facility] Last Admin: 04/04/21 09:00 Dose: Not Given Documented by: Cholecalciferol (Vitamin D 5,000 Unit Cap) 5,000 unit PO DAILY [facility] Last Admin: 04/04/21 09:00 Dose: Not Given Documented by: Dextrose (D50w 25 Gm/50 Ml Syringe) 12.5 gm IV PRN PRN; Protocol PRN Reason: HYPOGLYCEMIA Ergocalciferol (Drisdol (Vitamin D=Ergocalciferol) 34783 Unit Cap) 50,000 unit PO Q7D@0900 [facility] Glucagon (Glucagon 1 Mg/Vial) 1 mg IM 1X PRN; Protocol PRN Reason: HYPOGLYCEMIA Haloperidol Lactate (Haloperidol Lact 5 Mg/Ml Inj) 1 mg IM Q4H PRN PRN Reason: AGITATION Last Admin: 04/04/21 16:54 Dose: 1 mg Documented by: Insulin Human Regular (Insulin -Regular Human 50 Unit/0.5 Ml Ml) 0 unit SQ ACHS [facility]; Protocol Last Admin: 04/04/21 16:26 Dose: Not Given Documented by: Ipratropium [place] (Ipratropium Brom 0.5mg/2.5ml) 0.5 mg NEB Q4H PRN PRN Reason: WHEEZING Levofloxacin (Levofloxacin 500 Mg Tab) 500 mg PO BEDTIME [facility]; Protocol Last Admin: 04/03/21 20:47 Dose: 500 mg Documented by: Methylprednisolone Sodium Succinate (Methylprednisolone 40 Mg Inj) 80 mg IV Q12HR [facility] Last Admin: 04/04/21 09:08 Dose: 80 mg Documented by: Metoprolol Tartrate (Metoprolol Tar 25 Mg Tab) 50 mg PO BID 6AM 6PM [facility] Last Admin: 04/04/21 17:01 Dose: Not Given Documented by: Sodium Chloride (Flush Normal Saline 10 Ml) 10 ml IV BID [facility] Last Admin: 04/04/21 09:08 Dose: 10 ml Documented by: Sterile Water (Water For Inj,Sterile 10 Ml) 1.2 ml IM UD PRN PRN Reason: DILUTION OF MED Last Admin: 04/03/21 00:07 Dose: 1.2 ml Documented by: Zinc Sulfate (Zinc Sulfate 220 Mg Cap) 220 mg PO DAILY [facility] Last Admin: 04/04/21 09:00 Dose: Not Given Documented by: Ziprasidone (Ziprasidone Mesyla 20 Mg/Vial) 10 mg IM Q6H PRN PRN Reason: AGITATION Last Admin: 04/04/21 17:36 Dose: 10 mg Documented by: Microbiology Results 03/28/21 15:57 Blood - Blood Aerobic Blood Culture - Final No growth in 5 days. 03/28/21 15:57 Blood - Blood Anaerobic Blood Culture - Final 03/28/21 15:45 Blood - Blood Aerobic Blood Culture - Final No growth in 5 days. 03/28/21 15:45 Blood - Blood Anaerobic Blood Culture - Final 03/28/21 15:52 Throat Culture & Sensitivity - Final NORMAL UPPER RESPIRATORY [facility] GROWN. 03/28/21 15:52 Throat Group A Streptococcus Rapid Screen - Final Assessment/ Plan: Nephrology Progress Note Family at the bedside Worsening dyspnea with hypoxia requiring bipap No acute events overnight Vitals, medications blood work and imaging reviewed in the chart General: In no apparent distress, Cooperative HEENT: Atraumatic Neck: Supple Respiratory: Clear to auscultation bilaterally Cardiovascular: No edema, Regular rate/rhythm Gastrointestinal: Soft and benign, Non-distended Musculoskeletal: No clubbing, No contractures Integumentary: No rashes, No cyanosis Neurological: Normal speech Greater than 30min patient care. Blood work reviewed in the chart. Imagings Data: EXAM DESCRIPTION: RAD - Chest Single View - 03/28/2021 3:52 pm CLINICAL HISTORY: SOB COMPARISON: Portable March 21 TECHNIQUE: AP portable chest image was obtained 03/28/2021 3:52 pm . FINDINGS: Patient has extensive baseline interstitial fibrotic change. Interstitial and alveolar opacities are present in each lung base in the lateral mid lung field. Pattern is similar to slightly worse than seen March 21. Bilateral pneumonia including COVID-19 pneumonia would be primary considerations. Cardiac silhouette is prominent. No vascular engorgement. No pneumothorax seen. No large pleural effusions. IMPRESSION: Bilateral pneumonia pattern similar or slightly worse than seen on March 21. Conclusions/Impression: CALDERON likely hypovolemia CKD III with proteinuria -Discontinue IVF at this time -No NSAIDs HTN with CKD/ CHF complicated by hypotension -Continue Metoprolol -Discontinue Amlodipine Diastolic CHF, chronic -Continue Metoprolol DM II with CKD -No sugar diet Moderate malnutrition -Encourage nutrition Anemia in chronic illness -Retacrit prn CKD MBD Hypocalcemia -Continue Vitamin D COVID-19 PNA Acute hypoxic respiratory failure -Continue Oxygen -Continue Bipap -Continue Levaquin -Continue Solumedrol
[2021-04-04] MEDS: levoFLOXacin 500 MG TAB PO SCH (21:00)
[2021-04-05] MEDS: METOPROLOL TAR 25 MG TAB PO SCH ×2 (05:24→16:44)
[2021-04-05] MEDS: INSULIN -REGULAR HUMAN 50 UNIT/0.5 ML ML SQ SCH ×4 (07:30→20:19)
[2021-04-05] MEDS: METHYLPREDNISOLONE 40 MG INJ IV SCH ×2 (08:02→20:18)
[2021-04-05] MEDS: HALOPERIDOL LACT 5 MG/ML INJ IM PRN (08:02)
[2021-04-05] MEDS: APIXABAN 5 MG TABLET PO SCH ×2 (08:04→20:18)
[2021-04-05] MEDS: ASCORBIC ACID 500 MG TABLET PO SCH (08:05)
[2021-04-05] MEDS: ZINC SULFATE 220 MG CAP PO SCH (08:05)
[2021-04-05] MEDS: CALCITROL 0.25 MCG CAP PO SCH (08:05)
[2021-04-05] MEDS: VITAMIN D 5,000 UNIT CAP PO SCH (08:05)
[2021-04-05] MEDS ORDERED: NA CHLORIDE 0.9% 500 ML IV ONE (08:09)
--- NOTE | 2021-04-05 11:15 | P.PN ---
Subjective Date of Service: 04/05/21 Primary Care Provider: Magen Chief Complaint: Covid patient has better oxygen level He is a bit hypotensive and less responsive today Review of Systems is unable to be obtained Physical Examination - Vital Signs Temperature: 96.9 F Blood Pressure: 102/52 Pulse: 74 Respirations: 27 Pulse Ox (%): 96 - Physical Exam General: In no apparent distress, Unresponsive HEENT: Atraumatic, PERRLA, EOMI Neck: Supple, JVD not distended Respiratory: Diminished, Crackles/rales Cardiovascular: Regular rate/rhythm, Normal S1 S2 Gastrointestinal: Normal bowel sounds, No tenderness Musculoskeletal: No tenderness Integumentary: No rashes Neurological: Normal speech, Normal tone, Normal affect Lymphatics: No axilla or inguinal lymphadenopathy Assessment & Plan - Problems (Diagnosis) (1) COVID-19 Current Visit: No Status: Acute Plan: May be an exacerbation. Will keep hiim on steroids and vitamin protochol. His crp is acutally lower than previous admissions. Will consider discharge tomorrow. 04/04 Patient is worsening. Have called the spouse. Will continue current treatment. (2) Diabetes Current Visit: No Status: Chronic Plan: will keep him on a sliding scale 03/30 Patient normally does well without medications. 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 need to control his sugars better. 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 Yesterday. Will continue treatment. However they do not want him on a ventilator. Will make him DNI 04/05 Have called his with an update. Bit of a mixed picture. His oxygen is better. However his bp and mentation are worse. Discharge Plan: Home Plan to discharge in: Greater than 2 days - Code Status/Comfort Care Code Status Assessed: No Physician Review: Patient Assessed, Agree with Above Assessment and Plan Critical Care: No Time Spent Managing Pts Care (In Minutes): 25
[2021-04-05] MEDS: levoFLOXacin 500 MG TAB PO SCH (20:19)
[2021-04-06] MEDS: METOPROLOL TAR 25 MG TAB PO SCH ×2 (05:26→17:33)
[2021-04-06 06:48] LABS: Absolute Lymphocytes (CBC) 0.2 K/uL (0.7-4.9); Basophils % 0.6 % (0-1.3); Hematocrit 17.4 % (39.6-49.0); Lymphocytes % 0.8 % (15.3-44.8)
[2021-04-06 06:59] LABS: MPV 10.5 fL (7.6-11.3); RBC Red Blood Cell Count 1.89 M/uL (4.33-5.43)
[2021-04-06 07:11] LABS: Potassium 4.7 mmol/L (3.5-5.1)
[2021-04-06] MEDS: INSULIN -REGULAR HUMAN 50 UNIT/0.5 ML ML SQ SCH ×4 (07:30→20:44)
[2021-04-06] MEDS: VITAMIN D 5,000 UNIT CAP PO SCH (08:11)
[2021-04-06] MEDS: ASCORBIC ACID 500 MG TABLET PO SCH (08:11)
[2021-04-06] MEDS: ZINC SULFATE 220 MG CAP PO SCH (08:12)
[2021-04-06] MEDS: METHYLPREDNISOLONE 40 MG INJ IV SCH ×2 (08:35→20:44)
[2021-04-06] MEDS: APIXABAN 5 MG TABLET PO SCH ×2 (08:36→20:22)
[2021-04-06] MEDS: CALCITROL 0.25 MCG CAP PO SCH (08:39)
[2021-04-06 08:47] LABS: Blood Morphology Comment NOTED (NOT SEEN); Burr Cells 1+; Platelet Estimate DECR
[2021-04-06 08:52] LABS: Absolute Lymphocytes (CBC) 0.2 K/uL (0.7-4.9); Basophils % 0.2 % (0-1.3); Hematocrit 18.4 % (39.6-49.0); Lymphocytes % 0.9 % (15.3-44.8); MPV 10.2 fL (7.6-11.3); RBC Red Blood Cell Count 1.96 M/uL (4.33-5.43)
[2021-04-06] MEDS ORDERED: DRISDOL (VITAMIN D=ERGOCALCIFEROL) 50000 UNIT CAP PO SCH (09:00)
[2021-04-06] MEDS ORDERED: EPOETIN ALFA-EPBX 10,000 UNIT/ML VIAL SQ ONE (09:15)
[2021-04-06] MEDS: D5W 1,000 ML with NA BICARB 8.4% 50 MEQ IV SCH ×4 (09:54→10:00)
[2021-04-06] MEDS ORDERED: SODIUM BICARB 50 MEQ/50ML VIAL ONE (10:17)
--- NOTE | 2021-04-06 12:24 | P.PN ---
Subjective Date of Service: 04/06/21 Primary Care Provider: Magen Chief Complaint: Covid Subjective: Worsening hypoxic, hypotensive, acute renal failure, anemic Review of Systems is unable to be obtained Physical Examination - Vital Signs Temperature: 96.8 F Blood Pressure: 116/58 Pulse: 96 Respirations: 22 Pulse Ox (%): 100 - Physical Exam General: Moderate distress, Unresponsive HEENT: Atraumatic, PERRLA, EOMI Neck: Supple, JVD not distended Respiratory: Clear to auscultation bilaterally, Normal air movement Cardiovascular: Regular rate/rhythm, Normal S1 S2 Gastrointestinal: Normal bowel sounds, No tenderness Musculoskeletal: No tenderness Integumentary: No rashes Neurological: Normal speech, Normal tone, Normal affect Lymphatics: No axilla or inguinal lymphadenopathy Assessment & Plan - Problems (Diagnosis) (1) Anemia Current Visit: No Status: Acute Plan: drop of 2units. If the patient is bleeding or iv hydration reveled anemia. Had a long talk with the family. Will order a occult blood, reticulocyte account. Will transfuse 1 unit. Will check a post and consider a 2nd unit this evening or tomorrow morning. Qualifiers: Anemia type: iron deficiency Iron deficiency anemia type: unspecified iron deficiency Qualified Code(s): D50.9 - Iron deficiency anemia, unspecified (2) Acute on chronic renal failure Current Visit: No Status: Acute Plan: will consult nephrology Start the patient on fluids. need to control his sugars better. 04/06 Patient has worsened to stage 4. 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 Will keep hiim on steroids and vitamin protochol. His crp is acutally lower than previous admissions. Will consider discharge tomorrow. 04/04 Patient is worsening. Have called the spouse. Will continue current treatment. (4) Diabetes Current Visit: No Status: Chronic Plan: will keep him on a sliding scale 03/30 Patient normally does well without medications. 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 Yesterday. Will continue treatment. However they do not want him on a ventilator. Will make him DNI 04/06 Patient is very poor prognosis. Have spent 20min discussing with the spouse. She would like blood. This is her right. He is in multi organ failure(hypoxic, neuro, cardic and renal failure) approx 10% chance of survival. The family needs education. The feel the definition of comfort care is giving one treatment over the other. That is not what we do. Will give the medications and supportive care that we can. Will give the blood that we can. The spouse is acting in her feelings of the best wishes of the patient. She has her own journey on the [place] stages. We should be respectful of that. Discharge Plan: Home - Code Status/Comfort Care Code Status Assessed: No Physician Review: Patient Assessed, Agree with Above Assessment and Plan Critical Care: No Time Spent Managing Pts Care (In Minutes): 40
[2021-04-06 12:51] LABS: RBC Red Blood Cell Count 1.94 M/uL (4.33-5.43)
[2021-04-06] MEDS: levoFLOXacin 500 MG TAB PO SCH (20:23)
--- NOTE | 2021-04-06 21:30 | P.PN ---
Date of Service: 04/05/21 Vital Signs Temp Pulse Resp BP Pulse Ox 96.6 F L 80 18 105/43 L 100 04/06/21 17:15 04/06/21 17:33 04/06/21 17:15 04/06/21 17:33 04/06/21 17:15 Medications Albuterol Sulfate (Albuterol 2.5 Mg/3 Ml Neb [place]) 2.5 mg NEB Q4H PRN PRN Reason: WHEEZING Apixaban (Apixaban 5 Mg Tablet) 5 mg PO BID [facility] Last Admin: 04/06/21 20:22 Dose: Not Given Documented by: Ascorbic Acid (Ascorbic Acid 500 Mg Tablet) 500 mg PO DAILY [facility] Last Admin: 04/06/21 08:11 Dose: Not Given Documented by: Calcitriol (Calcitrol 0.25 Mcg Cap) 0.5 mcg PO DAILY [facility] Last Admin: 04/06/21 08:39 Dose: Not Given Documented by: Cholecalciferol (Vitamin D 5,000 Unit Cap) 5,000 unit PO DAILY [facility] Last Admin: 04/06/21 08:11 Dose: Not Given Documented by: Dextrose (D50w 25 Gm/50 Ml Syringe) 12.5 gm IV PRN PRN; Protocol PRN Reason: HYPOGLYCEMIA Ergocalciferol (Drisdol (Vitamin D=Ergocalciferol) 09755 Unit Cap) 50,000 unit PO Q7D@0900 [facility] Last Admin: 04/06/21 08:38 Dose: Not Given Documented by: Glucagon (Glucagon 1 Mg/Vial) 1 mg IM 1X PRN; Protocol PRN Reason: HYPOGLYCEMIA Haloperidol Lactate (Haloperidol Lact 5 Mg/Ml Inj) 1 mg IM Q4H PRN PRN Reason: AGITATION Last Admin: 04/05/21 08:02 Dose: 1 mg Documented by: Sodium Bicarbonate 50 meq/ (Dextrose/Water) 1,050 mls @ 100 mls/hr IV .[id number] [facility] Last Admin: 04/06/21 10:00 Dose: 1,050 mls Documented by: Insulin Human Regular (Insulin -Regular Human 50 Unit/0.5 Ml Ml) 0 unit SQ ACHS [facility]; Protocol Last Admin: 04/06/21 20:44 Dose: 2 unit Documented by: Ipratropium [place] (Ipratropium Brom 0.5mg/2.5ml) 0.5 mg NEB Q4H PRN PRN Reason: WHEEZING Levofloxacin (Levofloxacin 500 Mg Tab) 500 mg PO BEDTIME [facility]; Protocol Last Admin: 04/06/21 20:23 Dose: Not Given Documented by: Methylprednisolone Sodium Succinate (Methylprednisolone 40 Mg Inj) 80 mg IV Q12HR [facility] Last Admin: 04/06/21 20:44 Dose: 80 mg Documented by: Metoprolol Tartrate (Metoprolol Tar 25 Mg Tab) 50 mg PO BID 6AM 6PM [facility] Last Admin: 04/06/21 17:33 Dose: Not Given Documented by: Sodium Chloride (Flush Normal Saline 10 Ml) 10 ml IV BID [facility] Last Admin: 04/06/21 20:50 Dose: 10 ml Documented by: Sterile Water (Water For Inj,Sterile 10 Ml) 1.2 ml IM UD PRN PRN Reason: DILUTION OF MED Last Admin: 04/03/21 00:07 Dose: 1.2 ml Documented by: Zinc Sulfate (Zinc Sulfate 220 Mg Cap) 220 mg PO DAILY [facility] Last Admin: 04/06/21 08:12 Dose: Not Given Documented by: Ziprasidone (Ziprasidone Mesyla 20 Mg/Vial) 10 mg IM Q6H PRN PRN Reason: AGITATION Last Admin: 04/04/21 17:36 Dose: 10 mg Documented by: Microbiology Results 03/28/21 15:57 Blood - Blood Aerobic Blood Culture - Final No growth in 5 days. 03/28/21 15:57 Blood - Blood Anaerobic Blood Culture - Final 03/28/21 15:45 Blood - Blood Aerobic Blood Culture - Final No growth in 5 days. 03/28/21 15:45 Blood - Blood Anaerobic Blood Culture - Final 03/28/21 15:52 Throat Culture & Sensitivity - Final NORMAL UPPER RESPIRATORY JAVON GROWN. 03/28/21 15:52 Throat Group A Streptococcus Rapid Screen - Final Assessment/ Plan: Nephrology Progress Note Family at the bedside Worsening dyspnea with hypoxia requiring bipap No acute events overnight Vitals, medications blood work and imaging reviewed in the chart General: In no apparent distress, Cooperative HEENT: Atraumatic Neck: Supple Respiratory: Clear to auscultation bilaterally Cardiovascular: No edema, Regular rate/rhythm Gastrointestinal: Soft and benign, Non-distended Musculoskeletal: No clubbing, No contractures Integumentary: No rashes, No cyanosis Neurological: Normal speech Greater than 30min patient care. Blood work reviewed in the chart. Imagings Data: EXAM DESCRIPTION: RAD - Chest Single View - 03/28/2021 3:52 pm CLINICAL HISTORY: SOB COMPARISON: Portable March 21 TECHNIQUE: AP portable chest image was obtained 03/28/2021 3:52 pm . FINDINGS: Patient has extensive baseline interstitial fibrotic change. Interstitial and alveolar opacities are present in each lung base in the lateral mid lung field. Pattern is similar to slightly worse than seen March 21. Bilateral pneumonia including COVID-19 pneumonia would be primary considerations. Cardiac silhouette is prominent. No vascular engorgement. No pneumothorax seen. No large pleural effusions. IMPRESSION: Bilateral pneumonia pattern similar or slightly worse than seen on March 21. Conclusions/Impression: CALDERON likely hypovolemia CKD III with proteinuria -No NSAIDs HTN with CKD/ CHF complicated by hypotension -Continue Metoprolol Diastolic CHF, chronic -Continue Metoprolol DM II with CKD -No sugar diet Moderate malnutrition -Encourage nutrition Anemia in chronic illness -Retacrit prn CKD MBD Hypocalcemia -Continue Vitamin D COVID-19 PNA Acute hypoxic respiratory failure -Continue Oxygen -Continue Bipap -Continue Levaquin -Continue Solumedrol
--- NOTE | 2021-04-06 21:49 | P.PN ---
Date of Service: 04/06/21 Vital Signs Temp Pulse Resp BP Pulse Ox 96.6 F L 80 18 105/43 L 100 04/06/21 17:15 04/06/21 17:33 04/06/21 17:15 04/06/21 17:33 04/06/21 17:15 Medications Albuterol Sulfate (Albuterol 2.5 Mg/3 Ml Neb [place]) 2.5 mg NEB Q4H PRN PRN Reason: WHEEZING Apixaban (Apixaban 5 Mg Tablet) 5 mg PO BID [facility] Last Admin: 04/06/21 20:22 Dose: Not Given Documented by: Ascorbic Acid (Ascorbic Acid 500 Mg Tablet) 500 mg PO DAILY [facility] Last Admin: 04/06/21 08:11 Dose: Not Given Documented by: Calcitriol (Calcitrol 0.25 Mcg Cap) 0.5 mcg PO DAILY [facility] Last Admin: 04/06/21 08:39 Dose: Not Given Documented by: Cholecalciferol (Vitamin D 5,000 Unit Cap) 5,000 unit PO DAILY [facility] Last Admin: 04/06/21 08:11 Dose: Not Given Documented by: Dextrose (D50w 25 Gm/50 Ml Syringe) 12.5 gm IV PRN PRN; Protocol PRN Reason: HYPOGLYCEMIA Ergocalciferol (Drisdol (Vitamin D=Ergocalciferol) 88115 Unit Cap) 50,000 unit PO Q7D@0900 [facility] Last Admin: 04/06/21 08:38 Dose: Not Given Documented by: Glucagon (Glucagon 1 Mg/Vial) 1 mg IM 1X PRN; Protocol PRN Reason: HYPOGLYCEMIA Haloperidol Lactate (Haloperidol Lact 5 Mg/Ml Inj) 1 mg IM Q4H PRN PRN Reason: AGITATION Last Admin: 04/05/21 08:02 Dose: 1 mg Documented by: Sodium Bicarbonate 50 meq/ (Dextrose/Water) 1,050 mls @ 100 mls/hr IV .[id number] [facility] Last Admin: 04/06/21 10:00 Dose: 1,050 mls Documented by: Insulin Human Regular (Insulin -Regular Human 50 Unit/0.5 Ml Ml) 0 unit SQ ACHS [facility]; Protocol Last Admin: 04/06/21 20:44 Dose: 2 unit Documented by: Ipratropium [place] (Ipratropium Brom 0.5mg/2.5ml) 0.5 mg NEB Q4H PRN PRN Reason: WHEEZING Levofloxacin (Levofloxacin 500 Mg Tab) 500 mg PO BEDTIME [facility]; Protocol Last Admin: 04/06/21 20:23 Dose: Not Given Documented by: Methylprednisolone Sodium Succinate (Methylprednisolone 40 Mg Inj) 80 mg IV Q12HR [facility] Last Admin: 04/06/21 20:44 Dose: 80 mg Documented by: Metoprolol Tartrate (Metoprolol Tar 25 Mg Tab) 50 mg PO BID 6AM 6PM [facility] Last Admin: 04/06/21 17:33 Dose: Not Given Documented by: Sodium Chloride (Flush Normal Saline 10 Ml) 10 ml IV BID [facility] Last Admin: 04/06/21 20:50 Dose: 10 ml Documented by: Sterile Water (Water For Inj,Sterile 10 Ml) 1.2 ml IM UD PRN PRN Reason: DILUTION OF MED Last Admin: 04/03/21 00:07 Dose: 1.2 ml Documented by: Zinc Sulfate (Zinc Sulfate 220 Mg Cap) 220 mg PO DAILY [facility] Last Admin: 04/06/21 08:12 Dose: Not Given Documented by: Ziprasidone (Ziprasidone Mesyla 20 Mg/Vial) 10 mg IM Q6H PRN PRN Reason: AGITATION Last Admin: 04/04/21 17:36 Dose: 10 mg Documented by: Microbiology Results 03/28/21 15:57 Blood - Blood Aerobic Blood Culture - Final No growth in 5 days. 03/28/21 15:57 Blood - Blood Anaerobic Blood Culture - Final 03/28/21 15:45 Blood - Blood Aerobic Blood Culture - Final No growth in 5 days. 03/28/21 15:45 Blood - Blood Anaerobic Blood Culture - Final 03/28/21 15:52 Throat Culture & Sensitivity - Final NORMAL UPPER RESPIRATORY [facility] GROWN. 03/28/21 15:52 Throat Group A Streptococcus Rapid Screen - Final Assessment/ Plan: Nephrology Progress Note Family at the bedside Persistent dyspnea with hypoxia requiring bipap No acute events overnight Vitals, medications blood work and imaging reviewed in the chart General: In no apparent distress, Cooperative HEENT: Atraumatic Neck: Supple Respiratory: Clear to auscultation bilaterally Cardiovascular: No edema, Regular rate/rhythm Gastrointestinal: Soft and benign, Non-distended Musculoskeletal: No clubbing, No contractures Integumentary: No rashes, No cyanosis Neurological: Normal speech Greater than 30min patient care. Blood work reviewed in the chart. Imagings Data: EXAM DESCRIPTION: RAD - Chest Single View - 03/28/2021 3:52 pm CLINICAL HISTORY: SOB COMPARISON: Portable March 21 TECHNIQUE: AP portable chest image was obtained 03/28/2021 3:52 pm . FINDINGS: Patient has extensive baseline interstitial fibrotic change. Interstitial and alveolar opacities are present in each lung base in the lateral mid lung field. Pattern is similar to slightly worse than seen March 21. Bilateral pneumonia including COVID-19 pneumonia would be primary considerations. Cardiac silhouette is prominent. No vascular engorgement. No pneumothorax seen. No large pleural effusions. IMPRESSION: Bilateral pneumonia pattern similar or slightly worse than seen on March 21. Conclusions/Impression: CALDERON likely hypovolemia CKD III with proteinuria -No NSAIDs -Start IVF with Bicarb gtt HTN with CKD/ CHF complicated by hypotension -Continue Metoprolol Diastolic CHF, chronic -Continue Metoprolol DM II with CKD -No sugar diet Moderate malnutrition -Encourage nutrition Anemia in chronic illness -Retacrit prn CKD MBD Hypocalcemia -Continue Vitamin D COVID-19 PNA Acute hypoxic respiratory failure -Continue Oxygen -Continue Bipap -Continue Levaquin -Continue Solumedrol
[2021-04-07] MEDS: D5W 1,000 ML with NA BICARB 8.4% 50 MEQ IV SCH ×8 (00:17→22:08)
[2021-04-07] MEDS: METOPROLOL TAR 25 MG TAB PO SCH ×2 (06:00→18:00)
[2021-04-07 06:36] LABS: Absolute Lymphocytes (CBC) 0.1 K/uL (0.7-4.9); Basophils % 0.4 % (0-1.3); Hematocrit 21.7 % (39.6-49.0); Lymphocytes % 0.5 % (15.3-44.8); MPV 9.3 fL (7.6-11.3); RBC Red Blood Cell Count 2.43 M/uL (4.33-5.43)
[2021-04-07 07:00] LABS: Albumin 1.9 g/dL (3.4-5.0); Bilirubin Total 1.5 mg/dL (0.2-1.0); Magnesium 2.1 mg/dL (1.8-2.4); Phosphorus 5.8 mg/dL (2.5-4.9); Potassium 4.2 mmol/L (3.5-5.1); Uric Acid 11.9 mg/dL (3.5-7.2)
[2021-04-07] MEDS: METHYLPREDNISOLONE 40 MG INJ IV SCH ×2 (08:40→21:00)
[2021-04-07] MEDS: INSULIN -REGULAR HUMAN 50 UNIT/0.5 ML ML SQ SCH ×4 (08:40→22:15)
[2021-04-07] MEDS: APIXABAN 5 MG TABLET PO SCH ×2 (08:51→21:00)
[2021-04-07] MEDS: VITAMIN D 5,000 UNIT CAP PO SCH (08:52)
[2021-04-07] MEDS: ASCORBIC ACID 500 MG TABLET PO SCH (08:52)
[2021-04-07] MEDS: CALCITROL 0.25 MCG CAP PO SCH (08:52)
[2021-04-07] MEDS: ZINC SULFATE 220 MG CAP PO SCH (08:53)
--- NOTE | 2021-04-07 11:10 | P.PN ---
Date of Service: 04/07/21 Vital Signs Temp Pulse Resp BP Pulse Ox 98.2 F 102 H 20 157/82 H 96 04/07/21 08:00 04/07/21 08:00 04/07/21 08:00 04/07/21 08:00 04/07/21 08:00 Medications Albuterol Sulfate (Albuterol 2.5 Mg/3 Ml Neb [place]) 2.5 mg NEB Q4H PRN PRN Reason: WHEEZING Apixaban (Apixaban 5 Mg Tablet) 5 mg PO BID [facility] Last Admin: 04/07/21 08:51 Dose: Not Given Documented by: Ascorbic Acid (Ascorbic Acid 500 Mg Tablet) 500 mg PO DAILY [facility] Last Admin: 04/07/21 08:52 Dose: Not Given Documented by: Calcitriol (Calcitrol 0.25 Mcg Cap) 0.5 mcg PO DAILY [facility] Last Admin: 04/07/21 08:52 Dose: Not Given Documented by: Cholecalciferol (Vitamin D 5,000 Unit Cap) 5,000 unit PO DAILY [facility] Last Admin: 04/07/21 08:52 Dose: Not Given Documented by: Dextrose (D50w 25 Gm/50 Ml Syringe) 12.5 gm IV PRN PRN; Protocol PRN Reason: HYPOGLYCEMIA Ergocalciferol (Drisdol (Vitamin D=Ergocalciferol) 63427 Unit Cap) 50,000 unit PO Q7D@0900 [facility] Last Admin: 04/06/21 08:38 Dose: Not Given Documented by: Glucagon (Glucagon 1 Mg/Vial) 1 mg IM 1X PRN; Protocol PRN Reason: HYPOGLYCEMIA Haloperidol Lactate (Haloperidol Lact 5 Mg/Ml Inj) 1 mg IM Q4H PRN PRN Reason: AGITATION Last Admin: 04/05/21 08:02 Dose: 1 mg Documented by: Sodium Bicarbonate 50 meq/ (Dextrose/Water) 1,050 mls @ 100 mls/hr IV .[id number] [facility] Last Admin: 04/07/21 10:18 Dose: 1,050 mls Documented by: Insulin Human Regular (Insulin -Regular Human 50 Unit/0.5 Ml Ml) 0 unit SQ ACHS [facility]; Protocol Last Admin: 04/07/21 08:40 Dose: 4 unit Documented by: Ipratropium [place] (Ipratropium Brom 0.5mg/2.5ml) 0.5 mg NEB Q4H PRN PRN Reason: WHEEZING Levofloxacin (Levofloxacin 500 Mg Tab) 500 mg PO BEDTIME [facility]; Protocol Last Admin: 04/06/21 20:23 Dose: Not Given Documented by: Methylprednisolone Sodium Succinate (Methylprednisolone 40 Mg Inj) 80 mg IV Q12HR [facility] Last Admin: 04/07/21 08:40 Dose: 80 mg Documented by: Metoprolol Tartrate (Metoprolol Tar 25 Mg Tab) 50 mg PO BID 6AM 6PM [facility] Last Admin: 04/07/21 06:00 Dose: Not Given Documented by: Sodium Chloride (Flush Normal Saline 10 Ml) 10 ml IV BID [facility] Last Admin: 04/07/21 08:52 Dose: 10 ml Documented by: Sterile Water (Water For Inj,Sterile 10 Ml) 1.2 ml IM UD PRN PRN Reason: DILUTION OF MED Last Admin: 04/03/21 00:07 Dose: 1.2 ml Documented by: Zinc Sulfate (Zinc Sulfate 220 Mg Cap) 220 mg PO DAILY [facility] Last Admin: 04/07/21 08:53 Dose: Not Given Documented by: Ziprasidone (Ziprasidone Mesyla 20 Mg/Vial) 10 mg IM Q6H PRN PRN Reason: AGITATION Last Admin: 04/04/21 17:36 Dose: 10 mg Documented by: Microbiology Results 03/28/21 15:57 Blood - Blood Aerobic Blood Culture - Final No growth in 5 days. 03/28/21 15:57 Blood - Blood Anaerobic Blood Culture - Final 03/28/21 15:45 Blood - Blood Aerobic Blood Culture - Final No growth in 5 days. 03/28/21 15:45 Blood - Blood Anaerobic Blood Culture - Final 03/28/21 15:52 Throat Culture & Sensitivity - Final NORMAL UPPER RESPIRATORY JAVON GROWN. 03/28/21 15:52 Throat Group A Streptococcus Rapid Screen - Final Assessment/ Plan: Nephrology Progress Note Persistent dyspnea with hypoxia requiring bipap No acute events overnight Limited IH/ ROS due to AMS Vitals, medications blood work and imaging reviewed in the chart General: In no apparent distress HEENT: Atraumatic Neck: Supple Respiratory: Diminished Cardiovascular: No edema, Regular rate/rhythm Gastrointestinal: Soft and benign, Non-distended Musculoskeletal: No clubbing, No contractures Integumentary: No rashes, No cyanosis Neurological: No speech Greater than 30min patient care. Blood work reviewed in the chart. Imagings Data: EXAM DESCRIPTION: RAD - Chest Single View - 03/28/2021 3:52 pm CLINICAL HISTORY: SOB COMPARISON: Portable March 21 TECHNIQUE: AP portable chest image was obtained 03/28/2021 3:52 pm . FINDINGS: Patient has extensive baseline interstitial fibrotic change. Interstitial and alveolar opacities are present in each lung base in the lateral mid lung field. Pattern is similar to slightly worse than seen March 21. Bilateral pneumonia including COVID-19 pneumonia would be primary considerations. Cardiac silhouette is prominent. No vascular engorgement. No pneumothorax seen. No large pleural effusions. IMPRESSION: Bilateral pneumonia pattern similar or slightly worse than seen on March 21. Conclusions/Impression: CALDERON likely hypovolemia CKD III with proteinuria -No NSAIDs -Continue IVF with Bicarb gtt HTN with CKD/ CHF complicated by hypotension -Continue Metoprolol Diastolic CHF, chronic -Continue Metoprolol DM II with CKD -No sugar diet Moderate malnutrition -Encourage nutrition Anemia in chronic illness -Retacrit X1 CKD MBD Hypocalcemia -Continue Vitamin D COVID-19 PNA Acute hypoxic respiratory failure -Continue Oxygen -Continue Bipap -Continue Levaquin -Continue Solumedrol Will discuss with Dr. Us
[2021-04-07] MEDS ORDERED: EPOETIN ALFA-EPBX 10,000 UNIT/ML VIAL SQ ONE (11:30)
--- NOTE | 2021-04-07 15:30 | P.PN ---
Subjective Date of Service: 04/07/21 Primary Care Provider: Magen Chief Complaint: Covid Subjective: Worsening hypoxic, , acute renal failure, anemic, less responsive today Review of Systems is unable to be obtained Physical Examination - Vital Signs Temperature: 98.7 F Blood Pressure: 144/81 Pulse: 98 Respirations: 20 Pulse Ox (%): 95 - Physical Exam General: Unresponsive HEENT: Atraumatic, PERRLA, EOMI Neck: Supple, JVD not distended Respiratory: Clear to auscultation bilaterally, Normal air movement Cardiovascular: Regular rate/rhythm, Normal S1 S2 Gastrointestinal: Normal bowel sounds, No tenderness Musculoskeletal: No tenderness Integumentary: No rashes Neurological: Normal speech, Normal tone, Normal affect Lymphatics: No axilla or inguinal lymphadenopathy Assessment & Plan - Problems (Diagnosis) (1) Acute on chronic renal failure Current Visit: No Status: Acute Plan: will consult nephrology Start the patient on fluids. need to control his sugars better. 04/07 slight worsening of his creatine. Oligouric. Continue fluids. 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 If the patient is bleeding or iv hydration reveled anemia. Had a long talk with the family. Will order a occult blood, reticulocyte account. Will transfuse 1 unit. Will check a post and consider a 2nd unit this evening or tomorrow morning. 04/07 improved after blood transfusion. Qualifiers: Anemia type: iron deficiency Iron deficiency anemia type: unspecified iron deficiency Qualified Code(s): D50.9 - Iron deficiency anemia, unspecified (3) COVID-19 Current Visit: No Status: Acute Plan: May be an exacerbation. Will keep hiim on steroids and vitamin protochol. His crp is acutally lower than previous admissions. Will consider discharge tomorrow. 04/04 Patient is worsening. Have called the spouse. Will continue current treatment. (4) Diabetes Current Visit: No Status: Chronic Plan: will keep him on a sliding scale 03/30 Patient normally does well without medications. Will consider insulin as he has some elevation in his sugars and creatine Qualifiers: Diabetes mellitus type: type 2 Diabetes mellitus fpc insulin use: with fpc use Diabetes mellitus complication status: with circulatory complication Diabetes mellitus complication detail: with peripheral angiopathy with gangrene Qualified Code(s): E11.52 - Type 2 diabetes mellitus with diabetic peripheral angiopathy with gangrene; Z79.4 - rn long term care (current) use of insulin (5) Hypertension Onset Date: 04/24/18 Current Visit: No Status: Chronic Plan: 03/31 Restart amlodipine Qualifiers: Hypertension type: primary hypertension (6) End of life care Current Visit: Yes Status: Acute Plan: discussed with his and daughter. Yesterday. Will continue treatment. However they do not want him on a ventilator. Will make him DNI 04/07 better oxygenation. He is off the bipap onto a non rebreather. Overall poor prognosis. Kidney, respiratory and neurological failure. BP is stable. However the stated 3 meets the definition of multi organ failure There is approx a 10% survival in these situations. Have called the and addressed these concerns. This is to prepare her for her passing. Which is a very real possibility. Discharge Plan: Home Plan to discharge in: Greater than 2 days - Code Status/Comfort Care Code Status Assessed: No Physician Review: Patient Assessed, Agree with Above Assessment and Plan Critical Care: No Time Spent Managing Pts Care (In Minutes): 30
[2021-04-07] MEDS: HYDRALAZINE HCL 20 MG/ML VIAL IV PRN (16:55)
[2021-04-07] MEDS: levoFLOXacin 500 MG TAB PO SCH (21:00)
[2021-04-07] MEDS ORDERED: D5W 0 ML IV ONE (21:01)
[2021-04-08] MEDS: METOPROLOL TAR 25 MG TAB PO SCH ×2 (05:02→18:00)
[2021-04-08 06:19] LABS: Absolute Lymphocytes (CBC) 0.2 K/uL (0.7-4.9); Basophils % 0.1 % (0-1.3); Hematocrit 21.5 % (39.6-49.0); Lymphocytes % 0.9 % (15.3-44.8); MPV 9.1 fL (7.6-11.3); RBC Red Blood Cell Count 2.44 M/uL (4.33-5.43)
[2021-04-08 06:36] LABS: Albumin 1.8 g/dL (3.4-5.0); Bilirubin Total 1.4 mg/dL (0.2-1.0); Potassium 3.5 mmol/L (3.5-5.1)
[2021-04-08] MEDS: D5W 1,000 ML with NA BICARB 8.4% 50 MEQ IV SCH ×4 (08:24→18:49)
[2021-04-08] MEDS: METHYLPREDNISOLONE 40 MG INJ IV SCH ×3 (08:24→20:19)
[2021-04-08] MEDS: HYDRALAZINE HCL 20 MG/ML VIAL IV PRN (08:28)
[2021-04-08] MEDS: INSULIN -REGULAR HUMAN 50 UNIT/0.5 ML ML SQ SCH ×4 (08:36→20:13)
[2021-04-08] MEDS: APIXABAN 5 MG TABLET PO SCH ×2 (08:38→20:15)
[2021-04-08] MEDS: ASCORBIC ACID 500 MG TABLET PO SCH (08:39)
[2021-04-08] MEDS: VITAMIN D 5,000 UNIT CAP PO SCH (08:39)
[2021-04-08] MEDS: ZINC SULFATE 220 MG CAP PO SCH (08:39)
[2021-04-08 08:40] LABS: Blood Morphology Comment NOT SEEN (NOT SEEN); Platelet Estimate DECR
[2021-04-08] MEDS: CALCITROL 0.25 MCG CAP PO SCH (08:40)
[2021-04-08 14:27] LABS: Arterial Blood Carboxyhemoglob 2.1 % (0-1.5); Blood Gas Oxyhemoglobin 87.4 % (94-97); Blood O2 Saturation 90.5 % (92-98.5)
--- NOTE | 2021-04-08 16:46 | P.PN ---
Subjective Date of Service: 04/08/21 Primary Care Provider: Magen Chief Complaint: Covid hypoxic, , acute renal failure, anemic, less responsive today Review of Systems is unable to be obtained Physical Examination - Vital Signs Temperature: 97.6 F Blood Pressure: 135/72 Pulse: 85 Respirations: 23 Pulse Ox (%): 92 - Physical Exam General: Alert, In no apparent distress HEENT: Atraumatic, PERRLA, EOMI Neck: Supple, JVD not distended Respiratory: Clear to auscultation bilaterally, Normal air movement Cardiovascular: Regular rate/rhythm, Normal S1 S2 Gastrointestinal: Normal bowel sounds, No tenderness Musculoskeletal: No tenderness Integumentary: No rashes Neurological: Normal speech, Normal tone, Normal affect Lymphatics: No axilla or inguinal lymphadenopathy Assessment & Plan - Problems (Diagnosis) (1) Acute on chronic renal failure Current Visit: No Status: Acute Plan: will consult nephrology Start the patient on fluids. need to control his sugars better. 04/08 worsening creatine. Poor urinary output. Patient family does not want dialysis. States he would not want this. 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 If the patient is bleeding or iv hydration reveled anemia. Had a long talk with the family. Will order a occult blood, reticulocyte account. Will transfuse 1 unit. Will check a post and consider a 2nd unit this evening or tomorrow morning. 04/07 improved after blood transfusion. Qualifiers: Anemia type: iron deficiency Iron deficiency anemia type: unspecified iron deficiency Qualified Code(s): D50.9 - Iron deficiency anemia, unspecified (3) COVID-19 Current Visit: No Status: Acute Plan: May be an exacerbation. Will keep hiim on steroids and vitamin protochol. His crp is acutally lower than previous admissions. Will consider discharge tomorrow. 04/04 Patient is worsening. Have called the spouse. Will continue current treatme nt. (4) Diabetes Current Visit: No Status: Chronic Plan: will keep him on a sliding scale 03/30 Patient normally does well without medications. 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 Yesterday. Will continue treatment. However they do not want him on a ventilator. Will make him DNI 04/07 better oxygenation. He is off the bipap onto a non rebreather. Overall poor prognosis. Kidney, respiratory and neurological failure. BP is stable. However the stated 3 meets the definition of multi organ failure There is approx a 10% survival in these situations. Have called the and addressed these concerns. This is to prepare her for her passing. Which is a very real possibility. Discharge Plan: Home Plan to discharge in: 24 Hours - Code Status/Comfort Care Code Status Assessed: No Physician Review: Patient Assessed, Agree with Above Assessment and Plan Critical Care: No Time Spent Managing Pts Care (In Minutes): 25
[2021-04-08] MEDS: levoFLOXacin 500 MG TAB PO SCH ×2 (20:15→20:24)
--- NOTE | 2021-04-08 21:14 | P.PN ---
Date of Service: 04/08/21 Vital Signs Temp Pulse Resp BP Pulse Ox 96.2 F L 89 21 H 126/76 93 04/08/21 20:00 04/08/21 20:00 04/08/21 20:00 04/08/21 20:00 04/08/21 20:00 Medications Apixaban (Apixaban 5 Mg Tablet) 5 mg PO BID [facility] Last Admin: 04/08/21 20:15 Dose: Not Given Documented by: Ascorbic Acid (Ascorbic Acid 500 Mg Tablet) 500 mg PO DAILY [facility] Last Admin: 04/08/21 08:39 Dose: Not Given Documented by: Calcitriol (Calcitrol 0.25 Mcg Cap) 0.5 mcg PO DAILY [facility] Last Admin: 04/08/21 08:40 Dose: Not Given Documented by: Cholecalciferol (Vitamin D 5,000 Unit Cap) 5,000 unit PO DAILY [facility] Last Admin: 04/08/21 08:39 Dose: Not Given Documented by: Dextrose (D50w 25 Gm/50 Ml Syringe) 12.5 gm IV PRN PRN; Protocol PRN Reason: HYPOGLYCEMIA Ergocalciferol (Drisdol (Vitamin D=Ergocalciferol) 07670 Unit Cap) 50,000 unit PO Q7D@0900 [facility] Last Admin: 04/06/21 08:38 Dose: Not Given Documented by: Glucagon (Glucagon 1 Mg/Vial) 1 mg IM 1X PRN; Protocol PRN Reason: HYPOGLYCEMIA Hydralazine HCl (Hydralazine Hcl 20 Mg/Ml Vial) 10 mg IV Q6HP PRN PRN Reason: FOR SBP>160 OR DBP>100 [facility] Last Admin: 04/08/21 08:28 Dose: 10 mg Documented by: Potassium Chloride 10 meq/ (Dextrose/Sodium Chloride) 1,005 mls @ 75 mls/hr IV .[id number] [facility] Insulin Human Regular (Insulin -Regular Human 50 Unit/0.5 Ml Ml) 0 unit SQ ACHS [facility]; Protocol Last Admin: 04/08/21 20:13 Dose: 2 unit Documented by: Levofloxacin (Levofloxacin 500 Mg Tab) 500 mg PO BEDTIME [facility]; Protocol Last Admin: 04/08/21 20:24 Dose: Not Given Documented by: Methylprednisolone Sodium Succinate (Methylprednisolone 40 Mg Inj) 80 mg IV Q12HR [facility] Last Admin: 04/08/21 20:19 Dose: 80 mg Documented by: Metoprolol Tartrate (Metoprolol Tar 25 Mg Tab) 50 mg PO BID 6AM 6PM [facility] Last Admin: 04/08/21 18:00 Dose: Not Given Documented by: Sodium Chloride (Flush Normal Saline 10 Ml) 10 ml IV BID [facility] Last Admin: 04/08/21 20:16 Dose: 10 ml Documented by: Sterile Water (Water For Inj,Sterile 10 Ml) 1.2 ml IM UD PRN PRN Reason: DILUTION OF MED Last Admin: 04/03/21 00:07 Dose: 1.2 ml Documented by: Zinc Sulfate (Zinc Sulfate 220 Mg Cap) 220 mg PO DAILY [facility] Last Admin: 04/08/21 08:39 Dose: Not Given Documented by: Microbiology Results 03/28/21 15:57 Blood - Blood Aerobic Blood Culture - Final No growth in 5 days. 03/28/21 15:57 Blood - Blood Anaerobic Blood Culture - Final 03/28/21 15:45 Blood - Blood Aerobic Blood Culture - Final No growth in 5 days. 03/28/21 15:45 Blood - Blood Anaerobic Blood Culture - Final 03/28/21 15:52 Throat Culture & Sensitivity - Final NORMAL UPPER RESPIRATORY JAVON GROWN. 03/28/21 15:52 Throat Group A Streptococcus Rapid Screen - Final Assessment/ Plan: Nephrology Progress Note Persistent dyspnea with hypoxia requiring bipap No acute events overnight Limited IH/ ROS due to AMS Vitals, medications blood work and imaging reviewed in the chart General: In no apparent distress HEENT: Atraumatic Neck: Supple Respiratory: Diminished Cardiovascular: No edema, Regular rate/rhythm Gastrointestinal: Soft and benign, Non-distended Musculoskeletal: No clubbing, No contractures Integumentary: No rashes, No cyanosis Neurological: No speech Greater than 30min patient care. Blood work reviewed in the chart. Imagings Data: EXAM DESCRIPTION: RAD - Chest Single View - 03/28/2021 3:52 pm CLINICAL HISTORY: SOB COMPARISON: Portable March 21 TECHNIQUE: AP portable chest image was obtained 03/28/2021 3:52 pm . FINDINGS: Patient has extensive baseline interstitial fibrotic change. Interstitial and alveolar opacities are present in each lung base in the lateral mid lung field. Pattern is similar to slightly worse than seen March 21. Bilateral pneumonia including COVID-19 pneumonia would be primary considerations. Cardiac silhouette is prominent. No vascular engorgement. No pneumothorax seen. No large pleural effusions. IMPRESSION: Bilateral pneumonia pattern similar or slightly worse than seen on March 21. Conclusions/Impression: CALDERON likely hypovolemia CKD III with proteinuria -No NSAIDs -Change IVF D5W1/2NS -Family declining dialysis at this time Acidosis resolved -Discontinue bicarb gtt HTN with CKD/ CHF complicated by hypotension -Continue Metoprolol Diastolic CHF, chronic -Continue Metoprolol DM II with CKD -No sugar diet Moderate malnutrition -Encourage nutrition Anemia in chronic illness -Retacrit PRN CKD MBD Hypocalcemia -Continue Vitamin D COVID-19 PNA Acute hypoxic respiratory failure -Continue Oxygen -Continue Bipap -Continue Levaquin -Continue Solumedrol Case discussed with Dr. Us Prognosis poor
[2021-04-08] MEDS ORDERED: D5 0.45 NS 1,000 ML with POTASSIUM CL 10 MEQ IV SCH ×2 (22:00)
[2021-04-09] MEDS ORDERED: D5 0.45 NS 1,000 ML IV ONE (01:27)
[2021-04-09] MEDS: D5 0.45 NS 1,000 ML IV SCH ×2 (02:00→16:47)
[2021-04-09] MEDS: METOPROLOL TAR 25 MG TAB PO SCH ×2 (06:00→16:49)
[2021-04-09 06:54] LABS: Albumin 1.7 g/dL (3.4-5.0); Bilirubin Total 1.3 mg/dL (0.2-1.0); Potassium 3.1 mmol/L (3.5-5.1); Protein, Total 4.7 g/dL (6.4-8.2)
[2021-04-09] MEDS: ASCORBIC ACID 500 MG TABLET PO SCH (07:18)
[2021-04-09] MEDS: APIXABAN 5 MG TABLET PO SCH ×2 (07:18→20:51)
[2021-04-09] MEDS: CALCITROL 0.25 MCG CAP PO SCH (07:18)
[2021-04-09] MEDS: VITAMIN D 5,000 UNIT CAP PO SCH (07:19)
[2021-04-09] MEDS: ZINC SULFATE 220 MG CAP PO SCH (07:19)
[2021-04-09] MEDS: INSULIN -REGULAR HUMAN 50 UNIT/0.5 ML ML SQ SCH ×4 (07:30→20:51)
--- NOTE | 2021-04-09 09:57 | P.PN ---
Subjective Date of Service: 04/09/21 Primary Care Provider: Magen Chief Complaint: Covid Patient is not responsive Review of Systems is unable to be obtained Physical Examination - Vital Signs Temperature: 97.1 F Blood Pressure: 117/66 Pulse: 93 Respirations: 19 Pulse Ox (%): 89 - Physical Exam General: Unresponsive HEENT: Atraumatic, PERRLA, EOMI Neck: Supple, JVD not distended Respiratory: Diminished, Crackles/rales Cardiovascular: Regular rate/rhythm, Normal S1 S2 Gastrointestinal: Normal bowel sounds, No tenderness Musculoskeletal: No tenderness Integumentary: No rashes Neurological: Normal speech, Normal tone, Normal affect Lymphatics: No axilla or inguinal lymphadenopathy Assessment & Plan - Problems (Diagnosis) (1) Acute on chronic renal failure Current Visit: No Status: Acute Plan: will consult nephrology Start the patient on fluids. need to control his sugars better. 04/09 slightly better creatine. Poor urinary output. Patient family does not want dialysis. States he would not want this. 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 If the patient is bleeding or iv hydration reveled anemia. Had a long talk with the family. Will order a occult blood, reticulocyte account. Will transfuse 1 unit. Will check a post and consider a 2nd unit this evening or tomorrow morning. 04/07 improved after blood transfusion. Qualifiers: Anemia type: iron deficiency Iron deficiency anemia type: unspecified iron deficiency Qualified Code(s): D50.9 - Iron deficiency anemia, unspecified (3) COVID-19 Current Visit: No Status: Acute Plan: May be an exacerbation. Will keep hiim on steroids and vitamin protochol. His crp is acutally lower than previous admissions. Will consider discharge tomorrow. 04/09 less awake today. overall poor prognosis (4) Diabetes Current Visit: No Status: Chronic Plan: will keep him on a sliding scale 03/30 Patient normally does well without medications. Will consider insulin as he has some elevation in his sugars and creatine Qualifiers: Diabetes mellitus type: type 2 Diabetes mellitus long-term insulin use: with long-term use Diabetes mellitus complication status: with circulatory complication Diabetes mellitus complication detail: with peripheral angiopathy with gangrene Qualified Code(s): E11.52 - Type 2 diabetes mellitus with diabetic peripheral angiopathy with gangrene; Z79.4 - [facility] (current) use of insulin (5) Hypertension Onset Date: 04/24/18 Current Visit: No Status: Chronic Plan: 03/31 Restart amlodipine Qualifiers: Hypertension type: primary hypertension (6) End of life care Current Visit: Yes Status: Acute Plan: discussed with his and daughter. Yesterday. Will continue treatment. However they do not want him on a ventilator. Will make him DNI 04/07 better oxygenation. He is off the bipap onto a non rebreather. Overall poor prognosis. Kidney, respiratory and neurological failure. BP is stable. However the stated 3 meets the definition of multi organ failure There is approx a 10% survival in these situations. Have called the and addressed these concerns. This is to prepare her for her passing. Which is a very real possibility. Discharge Plan: Home Plan to discharge in: Greater than 2 days - Code Status/Comfort Care Code Status Assessed: No Physician Review: Patient Assessed, Agree with Above Assessment and Plan Critical Care: No Time Spent Managing Pts Care (In Minutes): 20
[2021-04-09] MEDS: KCL 20 MEQ/100 mL IVPB 20 MEQ/100 ML BAG IV SCH ×2 (12:54→14:59)
--- NOTE | 2021-04-09 20:27 | P.PN ---
Date of Service: 04/09/21 Vital Signs Temp Pulse Resp BP Pulse Ox 97.4 F 93 H 20 95/52 L 90 L 04/09/21 16:00 04/09/21 16:00 04/09/21 16:00 04/09/21 16:00 04/09/21 16:00 Medications Apixaban (Apixaban 5 Mg Tablet) 5 mg PO BID [facility] Last Admin: 04/09/21 07:18 Dose: Not Given Documented by: Ascorbic Acid (Ascorbic Acid 500 Mg Tablet) 500 mg PO DAILY [facility] Last Admin: 04/09/21 07:18 Dose: Not Given Documented by: Calcitriol (Calcitrol 0.25 Mcg Cap) 0.5 mcg PO DAILY [facility] Last Admin: 04/09/21 07:18 Dose: Not Given Documented by: Cholecalciferol (Vitamin D 5,000 Unit Cap) 5,000 unit PO DAILY [facility] Last Admin: 04/09/21 07:19 Dose: Not Given Documented by: Dextrose (D50w 25 Gm/50 Ml Syringe) 12.5 gm IV PRN PRN; Protocol PRN Reason: HYPOGLYCEMIA Ergocalciferol (Drisdol (Vitamin D=Ergocalciferol) 21566 Unit Cap) 50,000 unit PO Q7D@0900 [facility] Last Admin: 04/06/21 08:38 Dose: Not Given Documented by: Famotidine (Famotidine 20 Mg/2 Ml Vial) 20 mg IV DAILY [facility]; Protocol Last Admin: 04/09/21 15:58 Dose: 20 mg Documented by: Glucagon (Glucagon 1 Mg/Vial) 1 mg IM 1X PRN; Protocol PRN Reason: HYPOGLYCEMIA Hydralazine HCl (Hydralazine Hcl 20 Mg/Ml Vial) 10 mg IV Q6HP PRN PRN Reason: FOR SBP>160 OR DBP>100 [facility] Last Admin: 04/08/21 08:28 Dose: 10 mg Documented by: Dextrose/Sodium Chloride (Dextrose 5% O.45% Saline) 1,000 mls @ 75 mls/hr IV .[id number] [facility] Last Admin: 04/09/21 16:47 Dose: 1,000 mls Documented by: Insulin Human Regular (Insulin -Regular Human 50 Unit/0.5 Ml Ml) 0 unit SQ ACHS [facility]; Protocol Last Admin: 04/09/21 16:30 Dose: Not Given Documented by: Levofloxacin (Levofloxacin 500 Mg Tab) 500 mg PO BEDTIME [facility]; Protocol Last Admin: 04/08/21 20:24 Dose: Not Given Documented by: Methylprednisolone Sodium Succinate (Methylprednisolone 40 Mg Inj) 80 mg IV Q12HR [facility] Last Admin: 04/08/21 20:19 Dose: 80 mg Documented by: Metoprolol Tartrate (Metoprolol Tar 25 Mg Tab) 50 mg PO BID 6AM 6PM [facility] Last Admin: 04/09/21 16:49 Dose: Not Given Documented by: Sodium Chloride (Flush Normal Saline 10 Ml) 10 ml IV BID [facility] Last Admin: 04/09/21 07:52 Dose: 10 ml Documented by: Sterile Water (Water For Inj,Sterile 10 Ml) 1.2 ml IM UD PRN PRN Reason: DILUTION OF MED Last Admin: 04/03/21 00:07 Dose: 1.2 ml Documented by: Zinc Sulfate (Zinc Sulfate 220 Mg Cap) 220 mg PO DAILY [facility] Last Admin: 04/09/21 07:19 Dose: Not Given Documented by: Microbiology Results 03/28/21 15:57 Blood - Blood Aerobic Blood Culture - Final No growth in 5 days. 03/28/21 15:57 Blood - Blood Anaerobic Blood Culture - Final 03/28/21 15:45 Blood - Blood Aerobic Blood Culture - Final No growth in 5 days. 03/28/21 15:45 Blood - Blood Anaerobic Blood Culture - Final 03/28/21 15:52 Throat Culture & Sensitivity - Final NORMAL UPPER RESPIRATORY JAVON GROWN. 03/28/21 15:52 Throat Group A Streptococcus Rapid Screen - Final Assessment/ Plan: Nephrology Progress Note Persistent dyspnea with hypoxia requiring bipap No acute events overnight Limited IH/ ROS due to AMS Vitals, medications blood work and imaging reviewed in the chart General: In no apparent distress HEENT: Atraumatic Neck: Supple Respiratory: Diminished Cardiovascular: No edema, Regular rate/rhythm Gastrointestinal: Soft and benign, Non-distended Musculoskeletal: No clubbing, No contractures Integumentary: No rashes, No cyanosis Neurological: No speech Greater than 30min patient care. Blood work reviewed in the chart. Imagings Data: EXAM DESCRIPTION: RAD - Chest Single View - 03/28/2021 3:52 pm CLINICAL HISTORY: SOB COMPARISON: Portable March 21 TECHNIQUE: AP portable chest image was obtained 03/28/2021 3:52 pm . FINDINGS: Patient has extensive baseline interstitial fibrotic change. Interstitial and alveolar opacities are present in each lung base in the lateral mid lung field. Pattern is similar to slightly worse than seen March 21. Bila teral pneumonia including COVID-19 pneumonia would be primary considerations. Cardiac silhouette is prominent. No vascular engorgement. No pneumothorax seen. No large pleural effusions. IMPRESSION: Bilateral pneumonia pattern similar or slightly worse than seen on March 21. Conclusions/Impression: CALDERON likely hypovolemia CKD III with proteinuria -No NSAIDs -Continue IVF D5W1/2NS -Family declining dialysis at this time Hypokalemia -Replete with IV potassium Acidosis resolved HTN with CKD/ CHF complicated by hypotension -Continue Metoprolol Diastolic CHF, chronic -Continue Metoprolol DM II with CKD -No sugar diet Moderate malnutrition -Encourage nutrition Anemia in chronic illness -Retacrit PRN CKD MBD Hypocalcemia -Continue Vitamin D COVID-19 PNA Acute hypoxic respiratory failure -Continue Oxygen -Continue Bipap -Continue Levaquin -Continue Solumedrol Prognosis poor Case reviewed with his nurse
[2021-04-09] MEDS: METHYLPREDNISOLONE 40 MG INJ IV SCH (20:53)
[2021-04-10] MEDS: METOPROLOL TAR 25 MG TAB PO SCH (05:20)
[2021-04-10] MEDS: INSULIN -REGULAR HUMAN 50 UNIT/0.5 ML ML SQ SCH ×2 (07:30→11:07)
[2021-04-10 07:57] VITALS: TEMP 96.4
[2021-04-10] MEDS: NA CHLORIDE 0.9% 250 ML IV PRN ×4 (08:36→12:09)
[2021-04-10] MEDS: APIXABAN 5 MG TABLET PO SCH (08:37)
[2021-04-10] MEDS: CALCITROL 0.25 MCG CAP PO SCH (08:37)
[2021-04-10] MEDS: ASCORBIC ACID 500 MG TABLET PO SCH (08:38)
[2021-04-10] MEDS: ZINC SULFATE 220 MG CAP PO SCH (08:38)
[2021-04-10] MEDS: VITAMIN D 5,000 UNIT CAP PO SCH (08:38)
[2021-04-10 08:46] LABS: Albumin 1.1 g/dL (3.4-5.0); Bilirubin Total 1.7 mg/dL (0.2-1.0); Potassium 4.2 mmol/L (3.5-5.1); Protein, Total 3.5 g/dL (6.4-8.2)
[2021-04-10] MEDS ORDERED: FAMOTIDINE 20 MG/2 ML VIAL IV SCH (09:00)
--- NOTE | 2021-04-10 09:45 | P.PN ---
Subjective Date of Service: 04/10/21 Primary Care Provider: Magen Chief Complaint: Covid Patient is not responsive, hypotensive. becomin bradycardic Review of Systems is unable to be obtained Physical Examination - Vital Signs Temperature: 96.4 F Blood Pressure: 78/38 Pulse: 68 Respirations: 19 Pulse Ox (%): 96 - Physical Exam General: Alert, Unresponsive HEENT: Atraumatic, PERRLA, EOMI Neck: Supple, JVD not distended Respiratory: Clear to auscultation bilaterally, Diminished Cardiovascular: Regular rate/rhythm, Normal S1 S2 Gastrointestinal: Normal bowel sounds, No tenderness Musculoskeletal: No tenderness Integumentary: No rashes Neurological: Normal speech, Normal tone, Normal affect Lymphatics: No axilla or inguinal lymphadenopathy Assessment & Plan - Problems (Diagnosis) (1) End of life care Current Visit: Yes Status: Acute Plan: discussed with his and daughter. Yesterday. Will continue treatment. However they do not want him on a ventilator. Will make him DNI 04/10 Patient is doing getting hypotensive. Most likely will continue to decline. Will allow the family to vist one at a time. (2) Acute on chronic renal failure Current Visit: No Status: Acute Plan: will consult nephrology Start the patient on fluids. need to control his sugars better. 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 If the patient is bleeding or iv hydration reveled anemia. Had a long talk with the family. Will order a occult blood, reticulocyte account. Will transfuse 1 unit. Will check a post and consider a 2nd unit this evening or tomorrow morning. 04/07 improved after blood transfusion. Qualifiers: Anemia type: iron deficiency Iron deficiency anemia type: unspecified iron deficiency Qualified Code(s): D50.9 - Iron deficiency anemia, unspecified (4) COVID-19 Current Visit: No Status: Acute Plan: May be an exacerbation. Will keep hiim on steroids and vitamin protochol. His crp is acutally lower than previous admissions. Will consider discharge tomorrow. 04/09 less awake today. overall poor prognosis (5) Diabetes Current Visit: No Status: Chronic Plan: will keep him on a sliding scale 03/30 Patient normally does well without medications. 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
[2021-04-10 12:11] VITALS: BP 60/30
[2021-04-10 13:04] VITALS: O2SAT 95
--- NOTE | 2021-04-10 13:23 | P.PN ---
Date of Service: 04/10/21 Meet with patients . She does not want him to suffer. Sees all his vitals dropping. She would like to wait till tomorrow. Her last daughter is coming today. Then removed the bipap tomorrow. As this is a reasonable request we will try. However if the patient continues to worsen we will allow him to pass on.
--- NOTE | 2021-04-10 16:47 | P.DS ---
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 Chronic kidney disease stage: stage 4 (severe) Qualified Code(s): N17.2 - Acute kidney failure with medullary necrosis; N18.4 - Chronic kidney disease, stage 4 (severe) (3) Anemia Current Visit: No Status: Acute Qualifiers: Anemia type: iron deficiency Iron deficiency anemia type: unspecified iron deficiency Qualified Code(s): D50.9 - Iron deficiency anemia, unspecified (4) COVID-19 Current Visit: No Status: Acute (5) Diabetes Current Visit: No Status: Chronic Qualifiers: Diabetes mellitus type: type 2 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 He is not very compliant. Has a history of PVD. The patient was diagnoised with covid over 3 weeks ago. The family called the office yesterday and spoke to Elvis Sadler. He was having some confusi on. Was directed to turn up his oxygen to 4 lts. However he did not improve and was brought to the ER. Was found to be a bit hypoxic in the 80's and was put on 5 lts nc. This morning he is sitting comfortable on 4 lts. He is asking for pain medications. Something he normally does. He was given hydrocodone last night and is stable on that dosage. Hospital Course: Patient was admitted for covid. He continue to worsen. Placed on a bipap. He continued to decline. His bp and pulse were dropping throught the day. His asked he be made a dnr. Plan was to stop the bipap when his daugher arrived from out of town to say her goodbyes. Unfortunately Mr Saturnino a few hours later. Thank you for allowing me to take part in the patients care. Vital Signs/Physical Exam: Temp Pulse Resp BP Pulse Ox 96.4 F L 63 19 60/30 L 98 04/10/21 12:00 04/10/21 12:00 04/10/21 12:00 04/10/21 12:00 04/10/21 12:00 Laboratory Data at Discharge: WBC 17.10 K/uL (4.3-10.9) H 04/08/21 06:07 Hgb 7.2 g/dL (13.6-17.9) L 04/08/21 06:07 Hct 21.5 % (39.6-49.0) L 04/08/21 06:07 Plt Count 56 K/uL (152-406) L D 04/08/21 06:07 PT 12.3 SECONDS (9.5-12.5) 03/28/21 15:45 INR 1.07 03/28/21 15:45 APTT 33.6 SECONDS (24.3-36.9) 03/28/21 15:45 Sodium 139 mmol/L (136-145) 04/10/21 08:21 Potassium 4.2 mmol/L (3.5-5.1) 04/10/21 08:21 BUN 120 mg/dL (7-18) H 04/10/21 08:21 Creatinine 3.89 mg/dL (0.55-1.3) H 04/10/21 08:21 Glucose 180 mg/dL (74-106) H 04/10/21 08:21 Uric Acid 11.9 mg/dL (3.5-7.2) H D 04/07/21 06:20 Phosphorus 5.8 mg/dL (2.5-4.9) H 04/07/21 06:20 Magnesium 2.1 mg/dL (1.8-2.4) 04/07/21 06:20 Total Bilirubin 1.7 mg/dL (0.2-1.0) H 04/10/21 08:21 AST 18 U/L (15-37) 04/10/21 08:21 ALT 21 U/L (12-78) 04/10/21 08:21 Alkaline Phosphatase 139 U/L (45-117) H 04/10/21 08:21 Lipase 69 U/L (73-393) L 03/28/21 16:00 Home Medications: Amlodipine [Norvasc*] 5 mg PO DAILY #30 tab 12/02/20 Gabapentin [Neurontin*] 100 mg PO TID #90 cap 12/02/20 Metoprolol Succinate 1 tab PO DAILY 02/02/21 Hydrocodone Bit/Acetaminophen [Hydrocodon-Acetaminoph 7.5-325] 1 each PO TIDP PRN 7 Days #20 tablet 02/05/21 Metoprolol Tartrate [Lopressor*] 25 mg PO BID 03/29/21 Prednisone [Sterapred Ds] 10 mg PO BID 9 Days #21 tab.ds.pk 03/31/21 New Medications: Prednisone [Sterapred Ds] 10 mg PO BID 9 Days #21 tab.ds.pk Followup: Garo Us MD [ACTIVE - CAN ADMIT] - Time spent managing pt's care (in minutes): 45
== END 2021-04-10 18:30 | disposition expired | DRG 177 ==
LOC: ER 14:56 → ERHOLD 20:05 → 4TH 21:58
PROVIDERS: ADMIT Internal Medicine; ATTEND Internal Medicine
PROC: 5A09557 Assistance with Respiratory Ventilation, Greater than 96 Consecutive Hours, Continuous Positive Airway Pressure (ICD-10-PCS; principal; 2021-04-04)
DX: U07.1 COVID-19 (principal); J96.01 Acute respiratory failure with hypoxia; N18.4 Chronic kidney disease, stage 4 (severe); N17.9 Acute kidney failure, unspecified; E46 Unspecified protein-calorie malnutrition; I12.9 Hypertensive chronic kidney disease with stage 1 through stage 4 chronic kidney disease, or unspecified chronic kidney disease; E11.22 Type 2 diabetes mellitus with diabetic chronic kidney disease; D50.9 Iron deficiency anemia, unspecified; E11.51 Type 2 diabetes mellitus with diabetic peripheral angiopathy without gangrene; I95.9 Hypotension, unspecified; R00.1 Bradycardia, unspecified; Z66 Do not resuscitate; Z68.23 Body mass index [BMI] 23.0-23.9, adult; E83.51 Hypocalcemia; Z89.512 Acquired absence of left leg below knee; Z91.19 Patient's noncompliance with other medical treatment and regimen; Z79.4 Long term (current) use of insulin
CPT/HCPCS: 0240U; 36415; 36430; 71045; 80048; 80053; 80076; 82728; 82805; 82947; 83605; 83690; 83735; 84100; 84145; 84484; 84550; 85014; 85018; 85025; 85044; 85379; 85610; 85730; 86140; 86850; 86900; 86901; 87040; 87070; 87081; 93005; 94660; 94760; 99285; J0360; J1630; J2270; J2920; J2930; J3480; J3486; J7030; J7040; J7050; J7799; P9016; Q5106